=== PATIENT | female | born 1975 | race Caucasian/White ===

== ENCOUNTER 2017-06-11 12:23 | Emergency (ER) | payer SELFPAY ==
[2017-06-11 14:25] LABS: Absolute Lymphocytes (CBC) 1.7 K/uL (0.7-4.9); Absolute Monocytes 0.8 K/uL (0.1-1.3); Absolute Neutrophil 11.3 K/uL (1.8-8.0); Basophils % 0.3 % (0-1.3); Eosinophils % 0.6 % (0-4.4); Hematocrit 31.4 % (36.0-45.0); Lymphocytes % 12.2 % (15.3-44.8); MCH 27.9 pg (27.0-35.0); MCV 82.3 fL (80-100); MPV 7.1 fL (7.6-11.3); Monocytes % 5.7 % (3.3-12.3); RBC Red Blood Cell Count 3.81 M/uL (3.86-4.86)
[2017-06-11 14:33] LABS: Potassium 3.9 mEq/L (3.6-5.0)
[2017-06-11 14:36] LABS: Albumin 4.4 g/dL (3.2-5.5); Bilirubin Total 0.5 mg/dL (0.3-1.2); Protein, Total 7.5 g/dL (6.0-8.3)
[2017-06-11] MEDS ORDERED: DEXAMETHASONE 10 MG/ML VIAL ONE ×2 (14:40→14:46)
[2017-06-11] MEDS ORDERED: ALBUTEROL 2.5 MG/3 ML NEB SOL ONE (14:40)
[2017-06-11] MEDS ORDERED: KETOROLAC 30 MG/ML INJ ONE (14:40)
[2017-06-11] MEDS ORDERED: IPRATROPIUM BROM 0.5MG/2.5ML ONE (14:40)
--- NOTE | 2017-06-11 14:56 | RAD REPORT ---
EXAM DESCRIPTION: RAD - Chest Single View - 06/11/2017 2:09 pm CLINICAL HISTORY: Cough, patient detailed history of left anterior rib pain following injury COMPARISON: April 2017 TECHNIQUE: AP portable chest image was obtained 1404 hours . FINDINGS: Portable exam performed and under penetrated technique. There is ill-defined opacification in the lower left lung field. Inspiratory effort is somewhat shallow and this causes overall accentu ation of the lung markings. Early infiltrate or pulmonary contusion would be possible if there is foc al trauma. Heart and vasculature are normal. No measurable pleural effusion and no pneumothorax. No a cute bone finding. Rib detail is limited on portable underpenetrated examination. No acute aortic fin dings suspected. IMPRESSION: Lower left lung field infiltrate versus atelectasis. Rib detail is limited. Concerns for a rib fracture can be addressed with dedicated imaging.
--- NOTE | 2017-06-11 15:05 | ER ---
Nurse's Notes [facility] Name: Geetha Khan Age: 42 yrs Sex: Female : 1975 Arrival Date: 06/11/2017 Time: 12:27 Bed 11 Private MD: Diagnosis: PNEUMONIA. LEFT RIB PAIN. Presentation: 06/11 12:51 Presenting complaint: Patient states: "Last week I pulled a muscle in my ribs. It hurts lk1 when I breath and cough. It keeps popping and my left arm goes numb.". Transition of care: patient was not received from another setting of care. Onset of symptoms was June 04, 2017. Care prior to arrival: None. 12:51 Method Of Arrival: Ambulatory lk1 12:51 Acuity: CORRINA 4 lk1 Triage Assessment: 12:52 General: Appears in no apparent distress. Behavior is calm, cooperative, appropriate lk1 for age. Pain: Complains of pain in left lateral anterior chest and left arm Pain currently is 10 out of 10 on a pain scale. Respiratory: Airway is patent Respiratory effort is even, unlabored, Respiratory pattern is regular, symmetrical. 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 - Social history:: Smoking status: Patient uses tobacco products, smokes one-half pack cigarettes per day. Screenin:46 Abuse screen: Denies threats or abuse. Denies injuries from another. Nutritional aj1 screening: No deficits noted. Tuberculosis screening: No symptoms or risk factors identified. 15:22 Fall Risk None identified. iw Assessment: 13:46 General: Appears in no apparent distress. uncomfortable, Behavior is calm, cooperative, aj1 appropriate for age. Pain: Complains of pain in left lateral anterior chest Pain does not radiate. Pain currently is 10 out of 10 on a pain scale. Quality of pain is described as sharp, stabbing, Alleviated by rest, Aggravated by movement, coughing, and deep breathing. Neuro: Level of Consciousness is awake, alert, obeys commands, Oriented to person, place, time, situation, Speech is normal, Facial symmetry appears normal. Cardiovascular: Patient's skin is warm and dry. Respiratory: Reports shortness of breath cough that is productive, persistent Airway is patent Respiratory effort is even, unlabored, Respiratory pattern is regular, symmetrical, Breath sounds are clear bilaterally. GI: No signs and/or symptoms were reported involving the gastrointestinal system. : No signs and/or symptoms were reported regarding the genitourinary system. EENT: Reports nasal congestion nasal discharge. Derm: No signs and/or symptoms reported regarding the dermatologic system. Skin is pink, warm \\T\\ dry. normal. Musculoskeletal: No signs and/or symptoms reported regarding the musculoskeletal system. Circulation, motion, and sensation intact. 15:21 Reassessment: Patient appears in no apparent distress at this time. Patient and/or iw family updated on plan of care and expected duration. Pain level reassessed. Patient is alert, oriented x 3, equal unlabored respirations, skin warm/dry/pink. Vital Signs: 12:53 BP 204 / 131; Pulse 86; Resp 16; Temp 97.5(TE); Pulse Ox 100% on R/A; Weight 70.31 kg lk1 (R); Height 5 ft. 2 in. (157.48 cm) (R); Pain 10/10; 13:46 BP 184 / 103; Pulse 87; Resp 18; Pulse Ox 100% on R/A; aj1 15:21 BP 174 / 98; Pulse 86; Resp 18 S; Pulse Ox 100% on R/A; Pain 6/10; iw 12:53 Body Mass Index 28.35 (70.31 kg, 157.48 cm) lk1 ED Course: 12:27 Patient arrived in ED. mr 12:52 Triage completed. lk1 12:55 Arm band placed on right wrist. lk1 12:56 Tommie Gomez MD is Attending Physician. ps1 13:38 Sushma Nielson, RN is Primary Nurse. aj1 13:46 Patient has correct armband on for positive identification. Bed in low position. aj1 13:46 No provider procedures requiring assistance completed. aj1 14:01 Radiology exam delayed due to pt wasn't in gown upon arrival for cxr, then pt needed to sw use restroom. waiting for pt to come out of restroom dressed appropriately. 14:07 X-ray completed. Portable x-ray completed in exam room. Patient tolerated procedure sw well. 14:09 CXR XRAY In Process Unspecified. EDMS 15:21 Patient did not have IV access during this emergency room visit. iw Administered Medications: 14:30 Drug: Decadron - Dexamethasone 10 mg {Note: Given PO per Dr gandhi orders.} Route: aj1 IVP; Site: Other; 15:22 Follow up: Response: No adverse reaction iw 14:30 Drug: TORadol 30 mg Route: IM; Site: left deltoid; aj1 15:22 Follow up: Response: No adverse reaction iw 14:31 Drug: DuoNeb (3:1) (2.5 mg - 0.5 mg) 3 ml Route: Nebulizer; aj1 15:22 Follow up: Response: No adverse reaction iw Outcome: 15:04 Discharge ordered by . ps1 15:21 Discharged to home ambulatory. iw 15:21 Condition: good 15:21 Discharge instructions given to patient, Instructed on discharge instructions, follow up and referral plans. medication usage, Demonstrated understanding of instructions, follow-up care, medications, Prescriptions given X 3. 15:26 Patient left the ED. iw Signatures: Dispatcher [employer] EDMS Sushma Nielson, YANETH RN aj1 Juju Marina Irene, RN RN iw Warren, Shannon sw Kluge, Leah, YANETH RN lk1 Tommie Gomez MD MD ps1
--- NOTE | 2017-06-11 15:05 | EDPHYS ---
Physician Documentation [facility] Name: Geetha Khan Age: 42 yrs Sex: Female : 1975 Arrival Date: 06/11/2017 Time: 12:27 Bed 11 Private MD: ED Physician Tommie Gomez HPI: 06/11 13:41 This 42 yrs old Female presents to ER via Ambulatory with complaints of Arm ps1 Pain. 13:41 The patient or guardian complains of cough and rib pain and referred arm pain. The ps1 complaints affect the anterior aspect of left shoulder. Context: The problem was sustained at home. Onset: The symptoms/episode began/occurred 4 day(s) ago. Associated signs and symptoms: Pertinent positives: cough, shortness of breath. Severity of symptoms: At their worst the symptoms were moderate. 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 States that she developed a cough that has become more productive and causing her left side to hurt and now having referred pain. She states that she bent over to pick something up from her chair and felt a pop and now she has increased pain and RROM. . 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 - Social history:: Smoking status: Patient uses tobacco products, smokes one-half pack cigarettes per day. ROS: 13:41 Constitutional: Negative for fever, chills, and weight loss, Eyes: Negative for injury, ps1 pain, redness, and discharge, ENT: Negative for injury, pain, and discharge, Neck: Negative for injury, pain, and swelling, Cardiovascular: Negative for chest pain, palpitations, and edema, Abdomen/GI: Negative for abdominal pain, nausea, vomiting, diarrhea, and constipation, Back: Negative for injury and pain, Skin: Negative for injury, rash, and discoloration, Neuro: Negative for headache, weakness, numbness, tingling, and seizure. 13:41 Respiratory: Positive for cough, shortness of breath. Exam: 13:41 Constitutional: This is a well developed, well nourished patient who is awake, alert, ps1 and in no acute distress. Head/Face: Normocephalic, atraumatic. ENT: Nares patent. No nasal discharge, no septal abnormalities noted. Tympanic membranes are normal and external auditory canals are clear. Oropharynx with no redness, swelling, or masses, exudates, or evidence of obstruction, uvula midline. Mucous membranes moist. Neck: Trachea midline, no thyromegaly or masses palpated, and no cervical lymphadenopathy. Supple, full range of motion without nuchal rigidity, or vertebral point tenderness. No Meningismus. 13:41 Chest/axilla: Normal chest wall appearance and motion. Nontender with no deformity. No lesions are appreciated. Cardiovascular: Regular rate and rhythm. No gallops, murmurs, or rubs. Normal PMI, no JVD. No pulse deficits. 13:41 Neuro: Awake and alert, GCS 15, oriented to person, place, time, and situation. Cranial nerves II-XII grossly intact. Sensory grossly intact. 13:41 Chest/axilla: Palpation: tenderness, that is mild, of the left lateral posterior chest. 13:41 Respiratory: the patient does not display signs of respiratory distress, Respirations: normal, Breath sounds: rhonchi. Vital Signs: 12:53 BP 204 / 131; Pulse 86; Resp 16; Temp 97.5(TE); Pulse Ox 100% on R/A; Weight 70.31 kg lk1 (R); Height 5 ft. 2 in. (157.48 cm) (R); Pain 10/10; 13:46 BP 184 / 103; Pulse 87; Resp 18; Pulse Ox 100% on R/A; aj1 15:21 BP 174 / 98; Pulse 86; Resp 18 S; Pulse Ox 100% on R/A; Pain 6/10; iw 12:53 Body Mass Index 28.35 (70.31 kg, 157.48 cm) lk1 MDM: 13:41 Data reviewed: vital signs, nurses notes. ps1 14:15 Patient medically screened. ps1 15:00 Data reviewed: lab test result(s), radiologic studies, plain films. Test ps1 interpretation: by ED physician or midlevel provider: plain radiologic studies, c/w possible PNA. ED course: Duoneb given as well as steroids and pain addressed. Smoking cessation conducted with patient. Possible early developing pneumonia with history of COPD with leukocytosis. Will send home with antibiotics and follow up with PCP for reevaluation. . 06/11 13:41 Order name: CBC with Diff; Complete Time: 14:29 ps1 06/11 13:41 Order name: CMP; Complete Time: 14:43 ps1 06/11 13:41 Order name: CXR XRAY; Complete Time: 14:59 ps1 Administered Medications: 14:30 Drug: Decadron - Dexamethasone 10 mg {Note: Given PO per Dr gandhi orders.} Route: aj1 IVP; Site: Other; 15:22 Follow up: Response: No adverse reaction iw 14:30 Drug: TORadol 30 mg Route: IM; Site: left deltoid; aj1 15:22 Follow up: Response: No adverse reaction iw 14:31 Drug: DuoNeb (3:1) (2.5 mg - 0.5 mg) 3 ml Route: Nebulizer; aj1 15:22 Follow up: Response: No adverse reaction iw Disposition: 06/11/17 15:04 Discharged to Home. Impression: PNEUMONIA. LEFT RIB PAIN. . - Condition is Stable. - Discharge Instructions: Pneumonia, Adult. - Prescriptions for Levaquin 750 mg Oral Tablet - take 1 tablet by ORAL route once daily for 7 days; 7 tablet. Medrol (Zack) 4 mg Oral Tablets, Dose Pack - take 1 tablet by ORAL route as directed - follow package instructions; 1 packet. Albuterol Sulfate 90 mcg/actuation - inhale 1-2 puff by INHALATION route every 4-6 hours; 1 Inhaler. - Medication Reconciliation Form, Thank You Letter, Antibiotic Education, Prescription Opioid Use form. - Follow up: Private Physician; When: As needed; Reason: Recheck today's complaints, Continuance of care, Re-evaluation by your physician. Follow up: Emergency Department; When: As needed; Reason: Fever > 102 F, Trouble breathing, Worsening of condition. - Problem is an acute exacerbation. - Symptoms have improved. Signatures: Dispatcher [employer] Sushma Goodman RN RN aj1 Iqra Issa RN RN iw Radha Mann RN RN lk1 Tommie Gomez MD MD ps1
[2017-06-11 15:34] VITALS: TEMP 97.5; O2SAT 100
[2017-06-11 15:36] VITALS: BP 174/98
== END 2017-06-11 15:26 | disposition home or self-care (01) ==
LOC: ER 12:23
DX: I10 Essential (primary) hypertension; R07.81 Pleurodynia; F17.210 Nicotine dependence, cigarettes, uncomplicated; J18.9 Pneumonia, unspecified organism; J44.9 Chronic obstructive pulmonary disease, unspecified
CPT/HCPCS: 36415; 71045; 80053; 85025; 94640; 96372; 96374; 99284; J1100

== ENCOUNTER 2017-11-23 22:34 | Emergency (ER) | payer SELFPAY ==
[2017-11-23] MEDS ORDERED: levETIRAcetam 500 MG TAB ONE (23:26)
[2017-11-23] MEDS ORDERED: LISINOPRIL 10 MG TAB ONE (23:26)
--- NOTE | 2017-11-23 23:26 | ER ---
Nurse's Notes [facility] Name: Geetha Khan Age: 42 yrs Sex: Female : 1975 Arrival Date: 11/23/2017 Time: 22:34 Bed 15 Private MD: Diagnosis: uncontrolled hypertension Presentation: 11/23 22:51 Presenting complaint: Patient states: Complains of a headache for three days. Patient ao describes pain as sharp and throbbing at 10 in a scale 0/10. Patient negative for nausea or vomiting. Patient reports running out her seizure medication. Transition of care: patient was not received from another setting of care. Onset of symptoms was November 20, 2017 at 09:00. Risk Assessment: Do you want to hurt yourself or someone else? Patient reports no desire to harm self or others. Initial Sepsis Screen: Does the patient meet any 2 criteria? No. Patient's initial sepsis screen is negative. Does the patient have a suspected source of infection? No. Patient's initial sepsis screen is negative. Care prior to arrival: None. 22:51 Method Of Arrival: Ambulatory ao 22:51 Acuity: CORRINA 3 ao Triage Assessment: 21:55 Pain: Also complains of sleeplessness. jb4 21:55 Headache History: The patient has had previous headaches and this one is more severe jb4 than previous episodes. General: Appears in no apparent distress. comfortable, Behavior is calm, cooperative, appropriate for age. 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 - Social history:: Smoking status: Patient uses tobacco products, smokes one-half pack cigarettes per day, Patient/guardian denies using alcohol, street drugs. - Ebola Screening: : Patient negative for fever greater than or equal to 101.5 degrees Fahrenheit, and additional compatible Ebola Virus Disease symptoms Patient denies exposure to infectious person Patient denies travel to an Ebola-affected area in the 21 days before illness onset. Screenin:57 Abuse screen: Denies threats or abuse. Denies injuries from another. Nutritional ao screening: No deficits noted. Tuberculosis screening: No symptoms or risk factors identified. Fall Risk None identified. Assessment: 22:50 General: Appears in no apparent distress. uncomfortable, Behavior is calm, cooperative, jb4 appropriate for age. Pain: Complains of pain in Headache. Pain does not radiate. Pain currently is 10 out of 10 on a pain scale. at worst was 10 out of 10 on a pain scale. Quality of pain is described as sharp, throbbing, Pain began 2-3 days ago. Is continuous. Neuro: Level of Consciousness is awake, alert, obeys commands, Oriented to person, place, time, situation. Cardiovascular: Patient's skin is warm and dry. Respiratory: Airway is patent Respiratory effort is even, unlabored, Respiratory pattern is regular, symmetrical. GI: No signs and/or symptoms were reported involving the gastrointestinal system. : No signs and/or symptoms were reported regarding the genitourinary system. EENT: No signs and/or symptoms were reported regarding the EENT system. Derm: Skin is intact, Skin is pink, warm \T\ dry. Musculoskeletal: Circulation, motion, and sensation intact. 22:55 Reassessment: Provider notified of B/P. See BANNER for orders. jb4 23:37 Reassessment: Patient appears in no apparent distress at this time. Patient and/or jb4 family updated on plan of care and expected duration. Pain level reassessed. Patient is alert, oriented x 3, equal unlabored respirations, skin warm/dry/pink. Pt reports feeling better. B/p decrease to 182/114 after medication administration. Vital Signs: 22:54 BP 209 / 136; Pulse 83; Resp 20; Temp 98.3; Pulse Ox 100% ; Weight 63.5 kg; Height 5 ao ft. 2 in. (157.48 cm); Pain 10/10; 23:37 BP 182 / 114; Pulse 71; Resp 18; Pulse Ox 100% on R/A; jb4 22:54 Body Mass Index 25.61 (63.50 kg, 157.48 cm) ao ED Course: 22:34 Patient arrived in ED. es 22:50 Patient has correct armband on for positive identification. Bed in low position. Call jb4 light in reach. Side rails up X 1. Pulse ox on. NIBP on. 22:54 Triage completed. ao 22:57 Tommie Gomez MD is Attending Physician. ps1 22:57 Arm band placed on right wrist. Patient placed in an exam room, on a stretcher, on ao pulse oximetry, Patient notified of wait time. 22:58 Jaziel Strom, RN is Primary Nurse. jb4 23:37 No provider procedures requiring assistance completed. Patient did not have IV access jb4 during this emergency room visit. Administered Medications: 23:27 Drug: Lisinopril 10 mg Route: PO; jb4 23:35 Follow up: Response: No adverse reaction jb4 23:27 Drug: Keppra 1000 mg Route: PO; jb4 23:35 Follow up: Response: No adverse reaction jb4 Outcome: 23:25 Discharge ordered by MD. ps1 23:37 Discharged to home ambulatory. jb4 23:37 Condition: stable 23:37 Discharge instructions given to patient, family, Instructed on discharge instructions, follow up and referral plans. medication usage, Demonstrated understanding of instructions, follow-up care, medications, Prescriptions given X 2. 23:39 Patient left the ED. jb4 Signatures: Lisseth Turner Alex, RN RN ao Jaziel Storm RN RN jb4 Tommie Gomez MD MD ps1 Corrections: (The following items were deleted from the chart) 22:54 22:51 Presenting complaint: Patient states: Complains of a headache for three days. ao Patient describes pain as sharp and throbbing at 10 in a scale 0/10. Patient negative for nausea or vomiting. ao
--- NOTE | 2017-11-23 23:26 | EDPHYS ---
Physician Documentation [facility] Name: Geetha Khan Age: 42 yrs Sex: Female : 1975 Arrival Date: 11/23/2017 Time: 22:34 Bed 15 Private MD: ED Physician Tommie Gomez HPI: 11/23 23:20 This 42 yrs old Female presents to ER via Ambulatory with complaints of ps1 Headache. 23:20 patient has a history of elevated blood pressure and seizure. Does not take medication ps1 because the doctor never reportedly called her back and she lapsed on her medication for the last 3 months. She has had a headache for the last 3 days and her last seizure was 6 months ago. She reportedly never on blood pressure and was on carbamazepine for seizures which she doesn't take. No CP. tightness, pressure. . 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 - Social history:: Smoking status: Patient uses tobacco products, smokes one-half pack cigarettes per day, Patient/guardian denies using alcohol, street drugs. - Ebola Screening: : Patient negative for fever greater than or equal to 101.5 degrees Fahrenheit, and additional compatible Ebola Virus Disease symptoms Patient denies exposure to infectious person Patient denies travel to an Ebola-affected area in the 21 days before illness onset. ROS: 23:20 Constitutional: Negative for fever, chills, and weight loss, Eyes: Negative for injury, ps1 pain, redness, and discharge, Cardiovascular: Negative for chest pain, palpitations, and edema, Respiratory: Negative for shortness of breath, cough, wheezing, and pleuritic chest pain, Abdomen/GI: Negative for abdominal pain, nausea, vomiting, diarrhea, and constipation, MS/Extremity: Negative for injury and deformity, Skin: Negative for injury, rash, and discoloration. 23:20 Neuro: Positive for headache. Exam: 23:20 Constitutional: This is a well developed, well nourished patient who is awake, alert, ps1 and in no acute distress. Head/Face: Normocephalic, atraumatic. Eyes: Pupils equal round and reactive to light, extra-ocular motions intact. Lids and lashes normal. Conjunctiva and sclera are non-icteric and not injected. Chest/axilla: Normal chest wall appearance and motion. Nontender with no deformity. No lesions are appreciated. Cardiovascular: Regular rate and rhythm. No gallops, murmurs, or rubs. Normal PMI, no JVD. No pulse deficits. Respiratory: Lungs have equal breath sounds bilaterally, clear to auscultation and percussion. No rales, rhonchi or wheezes noted. No increased work of breathing, no retractions or nasal flaring. Abdomen/GI: Soft, non-tender, with normal bowel sounds. No distension or tympany. No guarding or rebound. No evidence of tenderness throughout. MS/ Extremity: Pulses equal, no cyanosis. Neurovascular intact. Full, normal range of motion. Neuro: Awake and alert, GCS 15, oriented to person, place, time, and situation. Cranial nerves II-XII grossly intact. Sensory grossly intact. Vital Signs: 22:54 BP 209 / 136; Pulse 83; Resp 20; Temp 98.3; Pulse Ox 100% ; Weight 63.5 kg; Height 5 ao ft. 2 in. (157.48 cm); Pain 10/10; 23:37 BP 182 / 114; Pulse 71; Resp 18; Pulse Ox 100% on R/A; jb4 22:54 Body Mass Index 25.61 (63.50 kg, 157.48 cm) ao MDM: 23:20 Data reviewed: vital signs, nurses notes, and as a result, I will discharge patient. ps1 Counseling: I had a detailed discussion with the patient and/or guardian regarding: the historical points, exam findings, and any diagnostic results supporting the discharge/admit diagnosis, the presence of at least one elevated blood pressure reading (>120/80) during this emergency department visit, patient has asymptomatic hypertension which is uncontrolled for long period of time. Will start on lisinopril 10mg and write prescription for same anti epileptic. Stable for discharge. . 23:25 Patient medically screened. ps1 Administered Medications: 23:27 Drug: Lisinopril 10 mg Route: PO; jb4 23:35 Follow up: Response: No adverse reaction jb4 23:27 Drug: Keppra 1000 mg Route: PO; jb4 23:35 Follow up: Response: No adverse reaction jb4 Disposition: 11/23/17 23:25 Discharged to Home. Impression: uncontrolled hypertension. - Condition is Stable. - Discharge Instructions: Hypertension. - Prescriptions for Carbamazepine 200 mg Oral Tablet - take 1 tablet by ORAL route every 12 hours; 20 tablet. Lisinopril 10 mg Oral Tablet - take 1 tablet by ORAL route once daily; 30 tablet. - Medication Reconciliation Form, Thank You Letter, Antibiotic Education, Prescription Opioid Use form. - Follow up: Private Physician; When: As needed; Reason: Further diagnostic work-up, Recheck today's complaints, Continuance of care, Re-evaluation by your physician. Follow up: Emergency Department; When: As needed; Reason: Worsening of condition. - Problem is chronic. - Symptoms are unchanged. Signatures: Félix Maciel RN RN ao Jaziel Storm RN RN jb4 Tommie Gomez MD MD ps1 Corrections: (The following items were deleted from the chart) 23:39 23:25 11/23/2017 23:25 Discharged to Home. Impression: uncontrolled hypertension. jb4 Condition is Stable. Forms are Medication Reconciliation Form, Thank You Letter, Antibiotic Education, Prescription Opioid Use. Follow up: Private Physician; When: As needed; Reason: Further diagnostic work-up, Recheck today's complaints, Continuance of care, Re-evaluation by your physician. Follow up: Emergency Department; When: As needed; Reason: Worsening of condition. Problem is chronic. Symptoms are unchanged. ps1
[2017-11-23 23:53] VITALS: TEMP 98.3; O2SAT 100
[2017-11-23 23:54] VITALS: BP 182/114
== END 2017-11-23 23:39 | disposition home or self-care (01) ==
LOC: ER 22:34
DX: R51 Headache (principal); I10 Essential (primary) hypertension; J44.9 Chronic obstructive pulmonary disease, unspecified; R56.9 Unspecified convulsions; F17.210 Nicotine dependence, cigarettes, uncomplicated
CPT/HCPCS: 99283

== ENCOUNTER 2018-05-18 17:54 | Emergency (ER) | payer SELFPAY ==
[2018-05-18] MEDS ORDERED: NA CHLORIDE 0.9% 1,000 ML ONE (18:31)
[2018-05-18] MEDS ORDERED: ASPIRIN 81 MG CHEWABLE TABLET ONE (18:31)
[2018-05-18 18:35] LABS: Absolute Lymphocytes (CBC) 1.4 K/uL (0.7-4.9); Absolute Monocytes 0.4 K/uL (0.1-1.3); Absolute Neutrophil 5.2 K/uL (1.8-8.0); Basophils % 0.9 % (0-1.3); Eosinophils % 1.1 % (0-4.4); Hematocrit 31.4 % (36.0-45.0); MPV 7.6 fL (7.6-11.3); Monocytes % 5.9 % (3.3-12.3); RBC Red Blood Cell Count 3.84 M/uL (3.86-4.86)
--- NOTE | 2018-05-18 18:40 | RAD REPORT ---
EXAM DESCRIPTION: RAD - Chest Single View - 05/18/2018 6:18 pm CLINICAL HISTORY: Difficulty breathing, shortness of breath COMPARISON: May 2017 TECHNIQUE: AP portable chest image was obtained 1816 hours . FINDINGS: No focal consolidation, mass or acute failure finding. Lung markings are prominent but not substantially different. Minimal edema or infiltrate could be masked by the baseline pattern. Heart and vasculature are normal. No measurable pleural effusion and no pneumothorax. No acute bony abnorma lity seen. No acute aortic findings suspected. IMPRESSION: No focal mass or consolidation. Prominent interstitial markings are present as a baseline. This potentially masks early edema or infi ltrate.
[2018-05-18 18:41] LABS: Protime INR 1.05
[2018-05-18 18:50] LABS: Albumin 3.8 g/dL (3.4-5.0); Bilirubin Direct 0.1 mg/dL (0-0.2); Bilirubin Total 0.5 mg/dL (0.2-1.0); Magnesium 1.9 mg/dL (1.8-2.4); Potassium 3.8 mmol/L (3.5-5.1); Protein, Total 7.3 g/dL (6.4-8.2); Troponin (Emerg Dept Use Only) 0.02 ng/mL (0.0-0.045)
[2018-05-18] MEDS ORDERED: KETOROLAC 30 MG/ML INJ ONE (19:26)
[2018-05-18] MEDS ORDERED: FUROSEMIDE 20 MG/ 2ML VIAL ONE (21:07)
[2018-05-18] MEDS ORDERED: predniSONE 20 MG TAB ONE (21:40)
--- NOTE | 2018-05-18 21:56 | ER ---
Nurse's Notes [facility] Name: Geetha Khan Age: 43 yrs Sex: Female : 1975 Arrival Date: 05/18/2018 Time: 17:57 Bed 3 Private MD: Diagnosis: Unspecified asthma with (acute) exacerbation;Other chest pain;Hypertensive heart disease Presentation: 05/18 17:57 Presenting complaint: EMS states: Called due to difficulty breathing, we gave an A\T\A jl7 treatment and she started c/o non-radiating substernal chest pain. Transition of care: patient was not received from another setting of care. Onset of symptoms was May 18, 2018. Risk Assessment: Do you want to hurt yourself or someone else? Patient reports no desire to harm self or others. Initial Sepsis Screen: Does the patient meet any 2 criteria? No. Patient's initial sepsis screen is negative. Does the patient have a suspected source of infection? No. Patient's initial sepsis screen is negative. Care prior to arrival: Medication(s) given: Albuterol Neb x 1, Atrovent Neb x 1. 17:57 Method Of Arrival: EMS: [facility] 7 17:57 Acuity: CORRINA 3 jl7 Triage Assessment: 18:00 General: Appears in no apparent distress. uncomfortable, Behavior is calm, cooperative. jl7 Pain: Complains of pain in mid-sternal area Pain currently is 8 out of 10 on a pain scale. Quality of pain is described as sharp, Pain began 30 min ago. Neuro: Level of Consciousness is awake, alert, obeys commands, Oriented to person, place, time, situation. Cardiovascular: Patient's skin is warm and dry. Chest pain is described as mild, quality is sharp, is located in substernal area. Respiratory: Airway is patent Respiratory effort is even, unlabored, Respiratory pattern is regular, symmetrical. Derm: Skin is pink, warm \T\ dry. 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 - Social history:: Smoking status: Patient uses tobacco products, smokes one-half pack cigarettes per day. - Ebola Screening: : No symptoms or risks identified at this time. Screenin:14 Abuse screen: Denies threats or abuse. Denies injuries from another. Nutritional jl7 screening: No deficits noted. Tuberculosis screening: No symptoms or risk factors identified. Fall Risk IV access (20 points). Total Quintero Fall Scale indicates No Risk (0-24 pts). Assessment: 18:14 Pain: Complains of pain in mid-sternal area Pain does not radiate. Pain currently is 8 jl7 out of 10 on a pain scale. Quality of pain is described as sharp, Pain began 30 min ago. Is continuous. Cardiovascular: Heart tones S1 S2 present Patient's skin is warm and dry. Respiratory: Airway is patent Respiratory effort is even, unlabored, Respiratory pattern is regular, symmetrical, Breath sounds are clear bilaterally. 18:45 Reassessment: Pt refused urine sample at this time. jl7 19:10 Reassessment: Patient appears in no apparent distress at this time. Patient and/or aa1 family updated on plan of care and expected duration. Pain level reassessed. Patient is alert, oriented x 3, equal unlabored respirations, skin warm/dry/pink. Pt reports she is still having int CP; PA notified and will medicate per orders. 22:25 Reassessment: Patient and/or family updated on plan of care and expected duration. Pain tl1 level reassessed. Patient is alert, oriented x 3, equal unlabored respirations, skin warm/dry/pink. Patient states feeling better. Patient states symptoms have improved. Vital Signs: 18:00 BP 189 / 110; Pulse 84; Resp 17 S; Pulse Ox 100% on R/A; Weight 72.12 kg (R); Pain 8/10;jl7 19:10 BP 163 / 105; Pulse 76; Resp 18; Temp 97.5(O); Pulse Ox 99% on R/A; Pain 6/10; aa1 20:30 BP 160 / 109; Pulse 76; Resp 16; Pulse Ox 99% on R/A; aa1 21:35 BP 171 / 98; Pulse 79; Resp 17; Pulse Ox 100% on R/A; tl1 21:51 BP 173 / 104; Pulse 71; Resp 17; Pulse Ox 100% on R/A; tl1 ED Course: 17:57 Patient arrived in ED. jl7 18:00 Triage completed. jl7 18:00 Arm band placed on right wrist. jl7 18:03 Michael Nguyen PA is PHCP. cp 18:03 Kb Morillo MD is Attending Physician. cp 18:10 Kailey Ching RN is Primary Nurse. jl7 18:14 Patient has correct armband on for positive identification. Placed in gown. Bed in low jl7 position. Call light in reach. Side rails up X2. hall monitor on. Pulse ox on. NIBP on. Warm blanket given. 18:14 Initial lab(s) drawn, by ED staff, sent to lab. Inserted saline lock: 22 gauge in left jl7 antecubital area, using aseptic technique. Blood collected. Patient maintains SpO2 saturation greater than 95% on room air. 18:16 X-ray completed. Portable x-ray completed in exam room. Patient tolerated procedure la2 well. 18:17 XRAY Chest (1 view) In Process Unspecified. EDMS 19:09 Report given to YANETH Orr. jl7 21:54 EKG done, by ED staff, reviewed by Michael LEBRON. ag4 22:26 No provider procedures requiring assistance completed. IV discontinued, intact, tl1 bleeding controlled, No redness/swelling at site. Pressure dressing applied. Administered Medications: 18:26 Drug: Aspirin Chewable Tablet 324 mg Route: PO; jl7 19:12 Follow up: Response: No adverse reaction jl7 18:27 Drug: NS 0.9% 1000 ml Route: IV; Rate: 500 ml/hr; Site: right antecubital; jl7 22:27 Follow up: IV Status: Completed infusion tl1 19:24 Drug: TORadol 30 mg Route: IVP; Site: left antecubital; aa1 22:27 Follow up: Response: No adverse reaction; Marked relief of symptoms; Pain is decreased tl1 21:14 Drug: Lasix 20 mg Route: IVP; Infused Over: 4 mins; Site: left antecubital; tl1 22:27 Follow up: Response: No adverse reaction; Marked relief of symptoms tl1 21:31 Drug: predniSONE 60 mg Route: PO; tl1 22:27 Follow up: Response: No adverse reaction; No change in condition tl1 Outcome: 21:55 Discharge ordered by . cp 22:26 Discharged to home ambulatory, with family. tl1 22:26 Condition: stable 22:26 Discharge instructions given to patient, Instructed on discharge instructions, follow up and referral plans. medication usage, Demonstrated understanding of instructions, follow-up care, medications, Prescriptions given X 3. 22:28 Patient left the ED. tl1 Signatures: Dispatcher [employer] EDMS Dominga Mai RN RN aa1 Elizabeth Larson RN RN tl1 Michael Nguyen PA PA cp Leal, Jahala, RN RN jl7 Kathie Cummings Adan ag4 Corrections: (The following items were deleted from the chart) 19:24 19:10 BP 163 / 105; Pulse 76bpm; Resp 18bpm; Pulse Ox 99% RA; Pain 6/10; aa1 aa1
--- NOTE | 2018-05-18 21:56 | EDPHYS ---
Physician Documentation [facility] Name: Geetha Khan Age: 43 yrs Sex: Female : 1975 Arrival Date: 05/18/2018 Time: 17:57 Bed 3 Private MD: ED Physician Kb Morillo HPI: 05/18 18:15 This 43 yrs old Female presents to ER via EMS with complaints of Chest Pain > cp 31 y/o. 18:15 The patient or guardian reports chest pain that is located primarily in the substernal cp area. 18:15 Onset: suddenly, just prior to arrival. cp 18:15 The chest pain is described as sharp. cp 18:15 Patient reports she called EMS for shortness of breath that started today and reports cp she started having chest pain after being given neb treatment. 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 - Social history:: Smoking status: Patient uses tobacco products, smokes one-half pack cigarettes per day. - Ebola Screening: : No symptoms or risks identified at this time. ROS: 18:20 Constitutional: Negative for body aches, chills, fever, poor PO intake. cp 18:20 Eyes: Negative for injury, pain, redness, and discharge. cp 18:20 ENT: Negative for drainage from ear(s), ear pain, sore throat, difficulty swallowing, difficulty handling secretions. 18:20 Cardiovascular: Positive for chest pain, Negative for edema, palpitations. 18:20 Respiratory: Positive for shortness of breath, Negative for cough. 18:20 Abdomen/GI: Negative for abdominal pain, nausea, vomiting, and diarrhea, black/tarry stool, rectal bleeding. 18:20 Back: Negative for pain at rest, pain with movement, radiated pain. 18:20 Skin: Negative for cellulitis, rash. 18:20 Neuro: Negative for altered mental status, headache, weakness. 18:20 All other systems are negative. Exam: 18:10 ECG was reviewed by the Attending Physician. cp 18:22 Constitutional: The patient appears in no acute distress, alert, awake, cp non-diaphoretic, non-toxic, well developed, well nourished. 18:22 Head/Face: Normocephalic, atraumatic. cp 18:22 Eyes: Periorbital structures: appear normal, Conjunctiva: normal, no exudate, no injection, Lids and lashes: appear normal, bilaterally. 18:22 ENT: External ear(s): are unremarkable, Ear canal(s): are normal, clear, TM's: bulging, is not appreciated, bilaterally, dullness, bilaterally, erythema, is not appreciated, bilaterally, Nose: is normal, Mouth: is normal, Posterior pharynx: is normal, airway is patent, no erythema, no exudate, Voice: is normal. 18:22 Neck: ROM/movement: is normal, is supple, without pain, no range of motions limitations, no meningismus, no nuchal rigidity. 18:22 Chest/axilla: Inspection: normal, Palpation: is normal, no crepitus, no tenderness. 18:22 Cardiovascular: Rate: normal, Rhythm: regular. 18:22 Respiratory: the patient does not display signs of respiratory distress, Respirations: labored breathing, that is mild, accessory muscle usage, is absent, intercostal retractions, are absent, shallow respirations, are not present, Breath sounds: decreased breath sounds, that are mild, are located in both bases, stridor, is not appreciated, wheezing: is not appreciated. 18:22 Abdomen/GI: Inspection: abdomen appears normal, Bowel sounds: active, all quadrants, Palpation: abdomen is soft and non-tender, in all quadrants, rebound tenderness, is not appreciated, involuntary guarding, is not appreciated. 18:22 Back: pain, is absent, ROM is normal. 18:22 Skin: cellulitis, is not appreciated, no rash present. 18:22 Neuro: Orientation: to person, place \T\ time. Mentation: is normal, Cerebellar function: is grossly normal, Motor: moves all fours, strength is normal, Sensation: is normal. 21:45 ECG was reviewed by the Attending Physician. cp Vital Signs: 18:00 BP 189 / 110; Pulse 84; Resp 17 S; Pulse Ox 100% on R/A; Weight 72.12 kg (R); Pain 8/10;jl7 19:10 BP 163 / 105; Pulse 76; Resp 18; Temp 97.5(O); Pulse Ox 99% on R/A; Pain 6/10; aa1 20:30 BP 160 / 109; Pulse 76; Resp 16; Pulse Ox 99% on R/A; aa1 21:35 BP 171 / 98; Pulse 79; Resp 17; Pulse Ox 100% on R/A; tl1 21:51 BP 173 / 104; Pulse 71; Resp 17; Pulse Ox 100% on R/A; tl1 MDM: 18:06 Patient medically screened. cp 21:54 The patient was given aspirin in the Emergency Department. cp 21:54 Data reviewed: vital signs, nurses notes, lab test result(s), EKG, radiologic studies, cp plain films. Test interpretation: by ED physician or midlevel provider: ECG, plain radiologic studies. Counseling: I had a detailed discussion with the patient and/or guardian regarding: the historical points, exam findings, and any diagnostic results supporting the discharge/admit diagnosis, lab results, radiology results, the need for outpatient follow up, for definitive care, a family practitioner, to return to the emergency department if symptoms worsen or persist or if there are any questions or concerns that arise at home. Counseling: I had a detailed discussion with the patient and/or guardian regarding: the presence of at least one elevated blood pressure reading (>120/80) during this emergency department visit. Response to treatment: the patient's symptoms have markedly improved after treatment, and as a result, I will discharge patient. Special discussion: Based on the patient's history, exam, and Dx evaluation, there is no indication for emergent intervention or inpatient Tx. It is understood by the patient/guardian that if the Sx's persist or worsen they need to return immediately for re-evaluation. 05/18 18:07 Order name: Basic Metabolic Panel; Complete Time: 19:16 cp 05/18 19:16 Interpretation: Normal except: GLUC 154; GFR 45. cp 05/18 18:07 Order name: CBC with Diff; Complete Time: 19:16 cp 05/18 19:17 Interpretation: Normal except: RBC 3.84; HGB 10.3; HCT 31.4; MCH 26.9; RDW 17.5. cp / 18:07 Order name: LFT's; Complete Time: 19:16 cp 05/18 19:18 Interpretation: Normal except: ALK 162. cp / 18:07 Order name: Magnesium; Complete Time: 19:16 cp 05/18 20:36 Interpretation: MG 1.9; Reviewed. cp 05/18 18:07 Order name: NT PRO-BNP; Complete Time: 19:16 cp 05/18 19:17 Interpretation: Abnormal: NT PRO-BNP 2558. cp 05/18 18:07 Order name: PT-INR; Complete Time: 19:16 cp 05/18 18:07 Order name: Troponin (emerg Dept Use Only); Complete Time: 19:16 cp 05/18 20:36 Interpretation: TROPED 0.02; Reviewed. cp 05/18 18:07 Order name: XRAY Chest (1 view); Complete Time: 19:16 cp 05/18 21:19 Order name: Troponin (emerg Dept Use Only); Complete Time: 21:53 tl1 05/18 21:53 Interpretation: Reviewed. cp 05/18 18:04 Order name: EKG; Complete Time: 18:05 cp 05/18 18:04 Order name: EKG - Nurse/Tech; Complete Time: 18:11 cp 05/18 18:07 Order name: Cardiac monitoring; Complete Time: 18:11 cp 05/18 18:07 Order name: IV Saline Lock; Complete Time: 18:11 cp 05/18 18:07 Order name: Labs collected and sent; Complete Time: 18:11 cp 05/18 18:07 Order name: O2 Per Protocol; Complete Time: 18:11 cp 05/18 18:07 Order name: O2 Sat Monitoring; Complete Time: 18:11 cp 05/18 21:26 Order name: EKG; Complete Time: 21:27 cp 05/18 21:26 Order name: EKG - Nurse/Tech; Complete Time: 21:35 cp EC:10 Rate is 82 beats/min. Rhythm is regular. MS interval is normal. QRS interval is normal. cp T waves are Inverted in leads I, II, aVL, V5, V6. Interpreted by me. Reviewed by me. 21:45 Rate is 69 beats/min. Rhythm is regular. MS interval is normal. QRS interval is normal. cp QT interval is normal. T waves are Inverted in leads I, II, aVL, V5, V6. Clinical impression: Abnormal EKG without significant change. Interpreted by me. Reviewed by me. Administered Medications: 18:26 Drug: Aspirin Chewable Tablet 324 mg Route: PO; jl7 19:12 Follow up: Response: No adverse reaction jl7 18:27 Drug: NS 0.9% 1000 ml Route: IV; Rate: 500 ml/hr; Site: right antecubital; jl7 22:27 Follow up: IV Status: Completed infusion tl1 19:24 Drug: TORadol 30 mg Route: IVP; Site: left antecubital; aa1 22:27 Follow up: Response: No adverse reaction; Marked relief of symptoms; Pain is decreased tl1 21:14 Drug: Lasix 20 mg Route: IVP; Infused Over: 4 mins; Site: left antecubital; tl1 22:27 Follow up: Response: No adverse reaction; Marked relief of symptoms tl1 21:31 Drug: predniSONE 60 mg Route: PO; tl1 22:27 Follow up: Response: No adverse reaction; No change in condition tl1 Disposition: 05/19 12:06 Co-signature as Attending Physician, Kb Morillo MD. Disposition: 05/18/18 21:55 Discharged to Home. Impression: Unspecified asthma with (acute) exacerbation, Other chest pain, Hypertensive heart disease. - Condition is Stable. - Discharge Instructions: Nonspecific Chest Pain, Hypertension, How to Take Your Blood Pressure, [id number], Aspirin and Your Heart. - Prescriptions for Prednisone 20 mg Oral Tablet - take 2 tablet by ORAL route once daily for 5 days; 10 tablet. Albuterol Sulfate 90 mcg/actuation - inhale 1-2 puff by INHALATION route every 4-6 hours; 1 Inhaler. Albuterol Sulfate 2.5 mg /3 mL (0.083 %) Inhalation Solution for Nebulization - inhale 1 unit by NEBULIZATION route every 8 hours As needed; 1 box. - Medication Reconciliation Form, Thank You Letter, Antibiotic Education, Prescription Opioid Use form. - Follow up: Private Physician; When: 1 - 2 days; Reason: Recheck today's complaints. - Problem is new. - Symptoms have improved. Signatures: Dispatcher [employer] Dominga Moncada RN RN aa1 Elizabeth Larson RN RN tl1 Michael Nguyen PA PA cp Kailey Ching, RN RN jl7 Kb Morillo MD MD gs Corrections: (The following items were deleted from the chart) 05/18 19:06 18:07 Urine Dipstick-Ancillary ordered. cp jl7 19:06 18:07 Urine Test ordered. jl7 21:58 21:55 05/18/2018 21:55 Discharged to Home. Impression: Unspecified asthma with (acute) cp exacerbation; Other chest pain. Condition is Stable. Forms are Medication Reconciliation Form, Thank You Letter, Antibiotic Education, Prescription Opioid Use. Follow up: Private Physician; When: 1 - 2 days; Reason: Recheck today's complaints. Problem is new. Symptoms have improved. cp 22:28 21:58 05/18/2018 21:55 Discharged to Home. Impression: Unspecified asthma with (acute) tl1 exacerbation; Other chest pain; Hypertensive heart disease. Condition is Stable. Discharge Instructions: Nonspecific Chest Pain, Aspirin and Your Heart, Hypertension. Prescriptions for Prednisone 20 mg Oral Tablet - take 2 tablet by ORAL route once daily for 5 days; 10 tablet, Albuterol Sulfate 90 mcg/actuation - inhale 1-2 puff by INHALATION route every 4-6 hours; 1 Inhaler. and Forms are Medication Reconciliation Form, Thank You Letter, Antibiotic Education, Prescription Opioid Use. Follow up: Private Physician; When: 1 - 2 days; Reason: Recheck today's complaints. Problem is new. Symptoms have improved. cp
[2018-05-18 22:56] VITALS: TEMP 97.5
[2018-05-18 22:58] VITALS: O2SAT 100
[2018-05-18 23:00] VITALS: BP 173/104
--- NOTE | 2018-05-19 09:10 | EKG ---
Test Date: 2018-05-18 Test Time: 21:36:52 Automotive Parts Manager: [id number] MEASUREMENT RESULTS: Intervals: Rate: 69 [place]: 158 QRSD: 74 QT: 436 QTc: 467 [place]: P: 45 NJ: 158 QRS: 0 T: 166 INTERPRETIVE STATEMENTS: Sinus rhythm with occasional premature ventricular complexes Possible Left atrial enlargement Left ventricular hypertrophy with repolarization abnormality Abnormal ECG Compared to ECG 05/18/2018 18:02:33 Ventricular premature complex(es) now present Atrial premature complex(es) no longer present Electronically Signed On 05-19-18 09:09:27 BIOFUELS TECHNOLOGY DEVELOPMENT MANAGER by Etsevan Duffy
--- NOTE | 2018-05-19 09:12 | EKG ---
Test Date: 2018-05-18 Test Time: 18:02:33 Picking Machine Operator: SHAY MEASUREMENT RESULTS: Intervals: Rate: 82 NE: 152 QRSD: 78 QT: 394 QTc: 460 [place]: P: 16 NE: 152 QRS: -5 T: 168 INTERPRETIVE STATEMENTS: Sinus rhythm with premature ventricular complexes Left ventricular hypertrophy with repolarization abnormality Nonspecific ST abnormality Abnormal ECG Compared to ECG 04/04/2017 21:05:30 Ventricular premature complex(es) now present Electronically Signed On 05-19-18 09:11:41 PLANNING MANAGEMENT IT SPECIALIST by Estevan Duffy
== END 2018-05-18 22:28 | disposition home or self-care (01) ==
LOC: ER 17:54
DX: J45.901 Unspecified asthma with (acute) exacerbation (principal); I11.9 Hypertensive heart disease without heart failure; I10 Essential (primary) hypertension; G40.909 Epilepsy, unspecified, not intractable, without status epilepticus; F17.210 Nicotine dependence, cigarettes, uncomplicated
CPT/HCPCS: 36415; 71045; 80048; 80076; 83735; 83880; 84484; 85025; 85610; 93005; 96361; 96374; 96375; 99285; J1940; J7030; J7512

== ENCOUNTER 2018-08-31 13:13 | Emergency (ER) | payer SELFPAY ==
[2018-08-31] MEDS ORDERED: NA CHLORIDE 0.9% 1,000 ML ONE ×2 (14:07→15:35)
[2018-08-31 14:11] LABS: Absolute Monocytes 0.9 K/uL (0.1-1.3); Absolute Neutrophil 7.8 K/uL (1.8-8.0); Basophils % 0.8 % (0-1.3); Eosinophils % 0.8 % (0-4.4); Lymphocytes % 18.4 % (15.3-44.8); MPV 7.3 fL (7.6-11.3); Monocytes % 8.1 % (3.3-12.3); Protime INR 1.07; RBC Red Blood Cell Count 3.76 M/uL (3.86-4.86)
[2018-08-31 14:26] LABS: ALT/SGPT 19 U/L (12-78); AST/SGOT 18 U/L (15-37); Albumin 3.9 g/dL (3.4-5.0); Alkaline Phosphatase 149 U/L (45-117); BUN Blood Urea Nitrogen 13 mg/dL (7-18); Bicarbonate 25 mmol/L (21-32); Bilirubin Direct 0.1 mg/dL (0-0.2); Bilirubin Total 0.4 mg/dL (0.2-1.0); Glucose Level 81 mg/dL (74-106); Magnesium 2.1 mg/dL (1.8-2.4); NT PRO-BNP 614 pg/mL (<125); Potassium 3.9 mmol/L (3.5-5.1); Protein, Total 7.6 g/dL (6.4-8.2); Sodium Level 140 mmol/L (136-145); Troponin (Emerg Dept Use Only) < 0.02 ng/mL (0.0-0.045)
--- NOTE | 2018-08-31 14:28 | RAD REPORT ---
EXAM DESCRIPTION: [place] Single View08/31/2018 2:04 pm CLINICAL HISTORY: sob COMPARISON: May 2018 FINDINGS: The lungs appear clear of acute infiltrate. The heart is normal size IMPRESSION: No acute abnormalities displayed
--- NOTE | 2018-08-31 17:43 | ER ---
Nurse's Notes [facility] Name: Geetha Khan Age: 43 yrs Sex: Female : 1975 Arrival Date: 08/31/2018 Time: 13:14 Bed 4 Private MD: Diagnosis: Hypotension Presentation: 08/31 13:22 Presenting complaint:. Presenting complaint:. Transition of care: patient was not la1 received from another setting of care. Onset of symptoms was August 31, 2018. Risk Assessment: Do you want to hurt yourself or someone else? Patient reports no desire to harm self or others. Initial Sepsis Screen: Does the patient meet any 2 criteria? No. Patient's initial sepsis screen is negative. Does the patient have a suspected source of infection? No. Patient's initial sepsis screen is negative. Care prior to arrival: None. 13:22 Method Of Arrival: Wheelchair la1 13:22 Acuity: CORRINA 2 la1 13:23 Presenting complaint: Patient states: I woke up this morning 1230 and I was fine, I got la1 up and got dressed, when I walked outside and I couldn't see, its like a big white blur, states lip were purple. 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 - Social history:: Smoking status: unknown. - Ebola Screening: : No symptoms or risks identified at this time. Screenin:31 Abuse screen: Denies threats or abuse. Denies injuries from another. Nutritional hb screening: No deficits noted. Tuberculosis screening: No symptoms or risk factors identified. Fall Risk Total Quintero Fall Scale indicates Low Risk Score (25-44 pts). Fall prevention measures have been instituted. Side Rails Up X 2 Frequent Obs/Assesments occuring Family Present and informed to notify staff if they need to leave bedside As available Patient and Family Educated on Fall Prevention Program and strategies. Assessment: 13:40 General: Appears in no apparent distress. Behavior is calm, cooperative. Pain: Denies hb pain. Neuro: Level of Consciousness is awake, alert, obeys commands, Oriented to person, place, time, situation, Reports dizziness, when standing. Cardiovascular: Capillary refill < 3 seconds Patient's skin is warm and dry. Respiratory: Airway is patent Respiratory effort is even, unlabored, Respiratory pattern is regular, symmetrical, Breath sounds are clear bilaterally. GI: Reports nausea. : No signs and/or symptoms were reported regarding the genitourinary system. EENT: No signs and/or symptoms were reported regarding the EENT system. Derm: Skin is pink, warm \\T\\ dry. Musculoskeletal: No signs and/or symptoms reported regarding the musculoskeletal system. 14:15 Reassessment: SBP 70s-80s, PA Ld aware, NS bolus infusing at this time. hb 15:11 Reassessment: Patient appears in no apparent distress at this time. Patient and/or ph family updated on plan of care and expected duration. Pain level reassessed. Patient is alert, oriented x 3, equal unlabored respirations, skin warm/dry/pink. BP low w/ SBP in 70's, fluid bolus not infusing d/t IV infiltration, new IV initiated in LAC and fluids infusing via pressure bag, pt states, " I feel okay, just a little dizzy when I sit up." Will continue to monitor. 17:42 Reassessment: Patient appears in no apparent distress at this time. Patient and/or iw family updated on plan of care and expected duration. Pain level reassessed. Patient is alert, oriented x 3, equal unlabored respirations, skin warm/dry/pink. Patient states feeling better. Patient states symptoms have improved. GI: No deficits noted. Vital Signs: 13:23 BP 73 / 50; Pulse 62; Resp 16; Pulse Ox 97% on R/A; la1 13:24 BP 67 / 48; la1 14:00 BP 76 / 43; Pulse 60; Resp 14; Pulse Ox 100% ; hb 14:30 BP 80 / 46; Pulse 63; Resp 15; Pulse Ox 100% on R/A; hb 15:14 BP 83 / 51; Pulse 64; Resp 18; Pulse Ox 98% on R/A; ph 16:45 BP 103 / 70; Pulse 88; Resp 14; Pulse Ox 100% on R/A; hb 17:38 BP 119 / 80 RA; Pulse 72 RA; iw 17:40 BP 113 / 82 RA Sitting; Pulse 69; iw 17:43 BP 110 / 70 RA Standing; Pulse 73; iw Vitals: 17:38 Cardiac Rhythm Assessment Regular. iw ED Course: 13:14 Patient arrived in ED. as 13:23 Triage completed. la1 13:23 Arm band placed on left wrist. la1 13:28 Ld Merlos PA is PHCP. jr8 13:28 Kb Morillo MD is Attending Physician. jr8 13:31 Kristin Barrera, YANETH is Primary Nurse. hb 13:57 Patient has correct armband on for positive identification. Bed in low position. Call hb light in reach. Side rails up X 1. site monitor on. Pulse ox on. NIBP on. 14:00 Initial lab(s) drawn, by me, sent to lab. Inserted saline lock: 20 gauge in right lt1 antecubital area, using aseptic technique. 14:05 XRAY Chest (1 view) In Process Unspecified. EDMS 15:15 IV discontinued, intact, bleeding controlled, No redness/swelling at site. Pressure ph dressing applied. Inserted saline lock: 20 gauge in left antecubital area, using aseptic technique. 17:43 No provider procedures requiring assistance completed. iw 17:57 IV discontinued, intact, bleeding controlled, No redness/swelling at site. Pressure iw dressing applied. Administered Medications: 13:55 Drug: NS 0.9% 1000 ml Route: IV; Rate: 1000 ml; Site: right antecubital; hb 14:30 Follow up: IV Status: Completed infusion iw 15:22 Drug: NS 0.9% 1000 ml Route: IV; Rate: 1000 ml; Site: left antecubital; hb 16:30 Follow up: IV Status: Completed infusion iw Outcome: 17:43 Discharge ordered by . jr8 17:57 Discharged to home ambulatory. iw 17:57 Condition: good 17:57 Discharge instructions given to patient, Instructed on discharge instructions, follow up and referral plans. Demonstrated understanding of instructions, follow-up care. 17:59 Patient left the ED. iw Signatures: Dispatcher [employer] Satrla Mireles Irene, RN RN Ld Ross PA PA jr8 Jorje William RN RN la1 Kelly Brown RN RN Kristin England RN RN hb Tran, [facility]
--- NOTE | 2018-08-31 17:44 | EDPHYS ---
Physician Documentation [facility] Name: Geetha Khan Age: 43 yrs Sex: Female : 1975 Arrival Date: 08/31/2018 Time: 13:14 Bed 4 Private MD: ED Physician Kb Morillo HPI: 08/31 16:02 This 43 yrs old Female presents to ER via Wheelchair with complaints of jr8 Blurred Vision, Nausea. 16:02 Onset: The symptoms/episode began/occurred acutely, today. Duration: The episode is jr8 continuous. Associated signs and symptoms: Pertinent positives: blurred vision, dizziness, weakness. Severity of symptoms: At their worst the symptoms were moderate in the emergency department the symptoms are unchanged. Patient's baseline: Neuro: alert and fully oriented, Motor: no deficits, Ambulation: walks without assistance, Speech: normal. The patient has not experienced similar symptoms in the past. The patient has not recently seen a physician. Patient stated that she started on seizure and blood pressure meds yesterday. Today upon awaking started to have blurred vision and malaise. Patient's BP upon arrival in the 60s systolic . 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 - Social history:: Smoking status: unknown. - Ebola Screening: : No symptoms or risks identified at this time. ROS: 16:02 Eyes: Negative for injury, pain, redness, and discharge, ENT: Negative for injury, jr8 pain, and discharge, Neck: Negative for injury, pain, and swelling, Cardiovascular: Negative for chest pain, palpitations, and edema, Respiratory: Negative for shortness of breath, cough, wheezing, and pleuritic chest pain, Abdomen/GI: Negative for abdominal pain, nausea, vomiting, diarrhea, and constipation, Back: Negative for injury and pain, MS/Extremity: Negative for injury and deformity, Skin: Negative for injury, rash, and discoloration. 16:02 Neuro: Positive for visual changes, weakness. Exam: 16:02 CT study not indicated or reported. Reason for not performing CT: Symptoms secondary to jr8 low BP. No altered mentation 16:02 Eyes: Pupils equal round and reactive to light, extra-ocular motions intact. Lids and lashes normal. Conjunctiva and sclera are non-icteric and not injected. Cornea within normal limits. Periorbital areas with no swelling, redness, or edema. ENT: Nares patent. No nasal discharge, no septal abnormalities noted. Tympanic membranes are normal and external auditory canals are clear. Oropharynx with no redness, swelling, or masses, exudates, or evidence of obstruction, uvula midline. Mucous membranes moist. Neck: Trachea midline, no thyromegaly or masses palpated, and no cervical lymphadenopathy. Supple, full range of motion without nuchal rigidity, or vertebral point tenderness. No Meningismus. Cardiovascular: Regular rate and rhythm with a normal S1 and S2. No gallops, murmurs, or rubs. Normal PMI, no JVD. No pulse deficits. Respiratory: Lungs have equal breath sounds bilaterally, clear to auscultation and percussion. No rales, rhonchi or wheezes noted. No increased work of breathing, no retractions or nasal flaring. Abdomen/GI: Soft, non-tender, with normal bowel sounds. No distension or tympany. No guarding or rebound. No evidence of tenderness throughout. Back: No spinal tenderness. No costovertebral tenderness. Full range of motion. Skin: Warm, dry with normal turgor. Normal color with no rashes, no lesions, and no evidence of cellulitis. MS/ Extremity: Pulses equal, no cyanosis. Neurovascular intact. Full, normal range of motion. Neuro: Awake and alert, GCS 15, oriented to person, place, time, and situation. Cranial nerves II-XII grossly intact. Motor strength 5/5 in all extremities. Sensory grossly intact. Cerebellar exam normal. Normal gait. Vital Signs: 13:23 BP 73 / 50; Pulse 62; Resp 16; Pulse Ox 97% on R/A; la1 13:24 BP 67 / 48; la1 14:00 BP 76 / 43; Pulse 60; Resp 14; Pulse Ox 100% ; hb 14:30 BP 80 / 46; Pulse 63; Resp 15; Pulse Ox 100% on R/A; hb 15:14 BP 83 / 51; Pulse 64; Resp 18; Pulse Ox 98% on R/A; ph 16:45 BP 103 / 70; Pulse 88; Resp 14; Pulse Ox 100% on R/A; hb 17:38 BP 119 / 80 RA; Pulse 72 RA; iw 17:40 BP 113 / 82 RA Sitting; Pulse 69; iw 17:43 BP 110 / 70 RA Standing; Pulse 73; iw MDM: 13:28 Patient medically screened. [facility] 17:41 Data reviewed: vital signs, nurses notes, lab test result(s), EKG, radiologic studies, jr plain films. Data interpreted: Pulse oximetry: on room air is 100 %. Interpretation: normal. Counseling: I had a detailed discussion with the patient and/or guardian regarding: the historical points, exam findings, and any diagnostic results supporting the discharge/admit diagnosis, lab results, radiology results, the need for outpatient follow up, a family practitioner, to return to the emergency department if symptoms worsen or persist or if there are any questions or concerns that arise at home. Response to treatment: the patient's symptoms have resolved after treatment, patient is well hydrated. ED course: BP at normal level now. Feeling well. Orthostatics negative. No dizziness with standing or walking. Will d/c home to f/u with PCP. Advised not to take BP medications until she follows up with PCP and sees her . 08/31 13:46 Order name: Basic Metabolic Panel [facility] 08/31 13:46 Order name: CBC with Diff [facility] 08/31 13:46 Order name: LFT's [facility] 08/31 13:46 Order name: Magnesium [facility] 08/31 13:46 Order name: NT PRO-BNP; Complete Time: 14:37 [facility] 08/31 13:46 Order name: PT-INR; Complete Time: 14:37 [facility] 08/31 13:46 Order name: Troponin (emerg Dept Use Only); Complete Time: 14:37 [facility] 08/31 13:46 Order name: XRAY Chest (1 view); Complete Time: 14:37 [facility] 08/31 13:48 Order name: Basic Metabolic Panel; Complete Time: 14:37 [facility] 08/31 13:48 Order name: CBC with Automated Diff; Complete Time: 14:37 [facility] 08/31 13:48 Order name: Liver (Hepatic) Function; Complete Time: 14:37 [facility] 08/31 13:48 Order name: Magnesium; Complete Time: 14:37 [facility] 08/31 13:46 Order name: EKG; Complete Time: 13:49 [facility] 08/31 13:46 Order name: Cardiac monitoring; Complete Time: 13:48 [facility] 08/31 13:46 Order name: EKG - Nurse/Tech; Complete Time: 13:48 [facility] 08/31 13:46 Order name: IV Saline Lock; Complete Time: 14:03 [facility] 08/31 13:46 Order name: Labs collected and sent; Complete Time: 14:03 [facility] 08/31 13:46 Order name: O2 Per Protocol; Complete Time: 13:48 [facility] 08/31 13:46 Order name: O2 Sat Monitoring; Complete Time: 13:49 [facility] 08/31 16:52 Order name: Orthostatics; Complete Time: 17:44 [facility] Administered Medications: 13:55 Drug: NS 0.9% 1000 ml Route: IV; Rate: 1000 ml; Site: right antecubital; hb 14:30 Follow up: IV Status: Completed infusion iw 15:22 Drug: NS 0.9% 1000 ml Route: IV; Rate: 1000 ml; Site: left antecubital; hb 16:30 Follow up: IV Status: Completed infusion iw Disposition: 08/31/18 17:43 Discharged to Home. Impression: Hypotension. - Condition is Stable. - Discharge Instructions: Hypotension. - Medication Reconciliation Form, Thank You Letter, Antibiotic Education, Prescription Opioid Use form. - Follow up: Private Physician; When: Tomorrow; Reason: Recheck today's complaints, Continuance of care, Re-evaluation by your physician. - Problem is new. - Symptoms are resolved. Addendum: 09/02/2018 02:12 Co-signature as Attending Physician, Kb Morillo MD. g s Signatures: Dispatcher [facility] Iqra Issa RN RN iw Ld Merlos PA PA jr8 Jorje William RN RN la1 Kristin Barrera RN RN hb Kb Morillo MD MD gs Corrections: (The following items were deleted from the chart) 08/31 17:59 17:43 08/31/2018 17:43 Discharged to Home. Impression: Hypotension. Condition is iw Stable. Forms are Medication Reconciliation Form, Thank You Letter, Antibiotic Education, Prescription Opioid Use. Follow up: Private Physician; When: Tomorrow; Reason: Recheck today's complaints, Continuance of care, Re-evaluation by your physician. Problem is new. Symptoms are resolved. jr8
[2018-08-31 18:11] VITALS: O2SAT 100
[2018-08-31 18:14] VITALS: BP 110/70
--- NOTE | 2018-08-31 20:48 | EKG ---
Test Date: 2018-08-31 Test Time: 13:34:13 Spare Hand Carding: ANDREAT MEASUREMENT RESULTS: Intervals: Rate: 57 MS: 164 QRSD: 78 QT: 472 QTc: 459 [place]: P: 33 MS: 164 QRS: 16 T: 177 INTERPRETIVE STATEMENTS: Sinus bradycardia Left ventricular hypertrophy with repolarization abnormality Abnormal ECG Compared to ECG 05/18/2018 21:36:52 Sinus rhythm no longer present Ventricular premature complex(es) no longer present Electronically Signed On 08-31-18 20:47:48 CDT by Estevan Duffy
== END 2018-08-31 17:59 | disposition home or self-care (01) ==
LOC: ER 13:13
DX: I95.9 Hypotension, unspecified (principal); I10 Essential (primary) hypertension; G40.909 Epilepsy, unspecified, not intractable, without status epilepticus; J44.9 Chronic obstructive pulmonary disease, unspecified
CPT/HCPCS: 36415; 71045; 80048; 80076; 83735; 83880; 84484; 85025; 85610; 93005; 96360; 96361; 99284; J7030

== ENCOUNTER 2018-11-02 16:58 | Emergency (ER) | payer SELFPAY ==
--- NOTE | 2018-11-02 18:46 | ER ---
Nurse's Notes [facility] Name: Geetha Khan Age: 43 yrs Sex: Female : 1975 Arrival Date: 11/02/2018 Time: 17:03 Bed 15 Private MD: Diagnosis: Epilepsy and recurrent seizures Presentation: 11/02 17:06 Presenting complaint: EMS states: [place], family reports ph that it lasted approx 5 min, has hx of seizures, did not take seizure meds this morning, post-ictal on scene, last seizure approx 2 months ago. Transition of care: patient was not received from another setting of care. Onset of symptoms was November 02, 2018. Risk Assessment: Do you want to hurt yourself or someone else? Patient reports no desire to harm self or others. Initial Sepsis Screen: Does the patient meet any 2 criteria? No. Patient's initial sepsis screen is negative. Does the patient have a suspected source of infection? No. Patient's initial sepsis screen is negative. Care prior to arrival: IV initiated. 20 GA, in the right hand. 17:06 Method Of Arrival: EMS: [facility] ph 17:06 Acuity: CORRINA 3 ph Historical: - Allergies: 17:13 No Known Drug Allergies; ph - Home Meds: 17:13 albuterol sulfate 90 mcg/actuation Inhl HFAA 2 puffs every 4 hours [Active]; Epitol 200 ph mg Oral tab 1 tab daily [Active]; lisinopril 20 mg Oral tab 1 tab twice daily [Active]; metoprolol tartrate 50 mg Oral tab 1 tab once daily [Active]; - PMHx: 17:13 Asthma; COPD; Hypertension; Seizures; ph - Immunization history:: Adult Immunizations unknown. - Social history:: Smoking status: unknown. - Ebola Screening: : No symptoms or risks identified at this time. Screenin:52 Abuse screen: Denies threats or abuse. Denies injuries from another. Nutritional ph screening: No deficits noted. Tuberculosis screening: No symptoms or risk factors identified. Fall Risk None identified. Assessment: 17:30 General: Appears in no apparent distress. comfortable, well groomed, Behavior is calm, ph cooperative, appropriate for age. Pain: Denies pain. Neuro: Level of Consciousness is awake, obeys commands, post ictal, Oriented to person, place, situation, Speech is normal, Seizure activity reported prior to arrival. Seizure lasted approximately 5 minutes. Patient is post-ictal at this time. Cardiovascular: Capillary refill < 3 seconds in bilateral fingers Patient's skin is warm and dry. Respiratory: Airway is patent Respiratory effort is even, unlabored, Respiratory pattern is regular, symmetrical. Derm: Skin is intact, is healthy with good turgor, Skin is pink, warm \T\ dry. Musculoskeletal: Circulation, motion, and sensation intact. Range of motion: intact in all extremities. 18:51 Reassessment: Patient appears in no apparent distress at this time. Patient and/or ph family updated on plan of care and expected duration. Pain level reassessed. Patient is alert, oriented x 3, equal unlabored respirations, skin warm/dry/pink. Vital Signs: 17:10 BP 156 / 96; Pulse 91; Resp 18; Temp 97.8; Pulse Ox 100% on R/A; ph 18:00 BP 136 / 78; Pulse 91; Resp 18; Pulse Ox 99% on R/A; ph 18:51 BP 130 / 75; Pulse 90; Resp 18; Temp 97.8; Pulse Ox 100% on R/A; ph [place] Coma Score: 17:25 Eye Response: spontaneous(4). Verbal Response: confused(4). Motor Response: obeys ph commands(6). Total: 14. ED Course: 17:03 Patient arrived in ED. ph 17:06 Randy Naidu NP is PHCP. pm1 17:06 Kb Morillo MD is Attending Physician. pm1 17:10 Triage completed. ph 17:14 Kelly Brown, RN is Primary Nurse. ph 17:20 Patient has correct armband on for positive identification. Bed in low position. Call ph light in reach. Side rails up X2. Seizure precautions initiated. Pulse ox on. NIBP on. Door closed. Noise minimized. Warm blanket given. 17:30 Maintain EMS IV. Dressing intact. Good blood return noted. Site clean \T\ dry. Gauge \T\ ph site: 20 R hand. 18:53 Arm band placed on. ph 18:53 No provider procedures requiring assistance completed. ph 19:19 IV discontinued, intact, bleeding controlled, No redness/swelling at site. Pressure ph dressing applied. Administered Medications: 17:50 Drug: TEGretol 200 mg Route: PO; ph 18:30 Follow up: Response: No adverse reaction ph Outcome: 18:45 Discharge ordered by MD. pm1 19:19 Discharged to home ambulatory, with family. ph 19:19 Condition: good 19:19 Discharge instructions given to patient, family, Instructed on discharge instructions, follow up and referral plans. Demonstrated understanding of instructions, follow-up care. 19:20 Patient left the ED. ph Signatures: Kelly Brown RN RN ph Randy Naidu, [employer] pm1
--- NOTE | 2018-11-02 18:46 | EDPHYS ---
Physician Documentation [facility] Name: Geetha Khan Age: 43 yrs Sex: Female : 1975 Arrival Date: 11/02/2018 Time: 17:03 Bed 15 Private MD: ED Physician Kb Morillo HPI: 11/02 17:37 This 43 yrs old Female presents to ER via EMS with complaints of Seizure. pm1 17:37 The patient presents after having a single isolated seizure, that lasted 5 minute(s), pm1 the episode(s) was witnessed, by family, granddaughter, . Character of seizure(s): Motor activity: generalized, Incontinence: none, Apnea: the patient did not experience apnea, Circulation: the patient did not experience evidence of pulse disturbance. Seizure onset: just prior to arrival. Context: the seizure(s) was witnessed, by family, occurred [facility] [employer]. Seizure Hx: Last seizure: The patient's last seizure was approximately 2 month(s) ago, Seizure medications: tegretol, Patient did not take her medication this AM. Associated injury: The patient did not suffer any apparent associated injury. EMS care: IV saline lock to right hand. Current symptoms: sleepy. The patient has experienced similar episodes in the past, several times. The patient has not recently seen a physician. Patient was sitting at table at the [employer] when she started to have a seizure. Cause of seizure due to not taking her medication this AM. Patient awake and alert but sleepy. Denies any pain or injury. Seizure was witnessed by her family who are currently at bedside. Historical: - Allergies: 17:13 No Known Drug Allergies; ph - Home Meds: 17:13 albuterol sulfate 90 mcg/actuation Inhl HFAA 2 puffs every 4 hours [Active]; Epitol 200 ph mg Oral tab 1 tab daily [Active]; lisinopril 20 mg Oral tab 1 tab twice daily [Active]; metoprolol tartrate 50 mg Oral tab 1 tab once daily [Active]; - PMHx: 17:13 Asthma; COPD; Hypertension; Seizures; ph - Immunization history:: Adult Immunizations unknown. - Social history:: Smoking status: unknown. - Ebola Screening: : No symptoms or risks identified at this time. ROS: 17:37 Constitutional: Negative for fever, chills, and weight loss, Eyes: Negative for injury, pm1 pain, redness, and discharge, ENT: Negative for injury, pain, and discharge, Neck: Negative for injury, pain, and swelling, Cardiovascular: Negative for chest pain, palpitations, and edema, Respiratory: Negative for shortness of breath, cough, wheezing, and pleuritic chest pain, Abdomen/GI: Negative for abdominal pain, nausea, vomiting, diarrhea, and constipation, Back: Negative for injury and pain, : Negative for injury, bleeding, discharge, and swelling, MS/Extremity: Negative for injury and deformity, Skin: Negative for injury, rash, and discoloration. 17:37 Neuro: Positive for seizure activity. Exam: 17:37 Constitutional: This is a well developed, well nourished patient who is awake, alert, pm1 and in no acute distress. Head/Face: Normocephalic, atraumatic. Eyes: Pupils equal round and reactive to light, extra-ocular motions intact. Lids and lashes normal. Conjunctiva and sclera are non-icteric and not injected. Cornea within normal limits. Periorbital areas with no swelling, redness, or edema. ENT: Nares patent. No nasal discharge, no septal abnormalities noted. Tympanic membranes are normal and external auditory canals are clear. Oropharynx with no redness, swelling, or masses, exudates, or evidence of obstruction, uvula midline. Mucous membranes moist. Neck: Trachea midline, no thyromegaly or masses palpated, and no cervical lymphadenopathy. Supple, full range of motion without nuchal rigidity, or vertebral point tenderness. No Meningismus. Chest/axilla: Normal chest wall appearance and motion. Nontender with no deformity. No lesions are appreciated. Cardiovascular: Regular rate and rhythm with a normal S1 and S2. No gallops, murmurs, or rubs. Normal PMI, no JVD. No pulse deficits. Respiratory: Lungs have equal breath sounds bilaterally, clear to auscultation and percussion. No rales, rhonchi or wheezes noted. No increased work of breathing, no retractions or nasal flaring. Abdomen/GI: Soft, non-tender, with normal bowel sounds. No distension or tympany. No guarding or rebound. No evidence of tenderness throughout. Back: No spinal tenderness. No costovertebral tenderness. Full range of motion. Skin: Warm, dry with normal turgor. Normal color with no rashes, no lesions, and no evidence of cellulitis. MS/ Extremity: Pulses equal, no cyanosis. Neurovascular intact. Full, normal range of motion. 17:37 Neuro: Orientation: to person, place, time, situation, Mentation: sleepy, Motor: is normal, moves all fours, strength is normal, strength is 5/5 in all extremities, Sensation: is normal, no obvious gross deficits. Vital Signs: 17:10 BP 156 / 96; Pulse 91; Resp 18; Temp 97.8; Pulse Ox 100% on R/A; ph 18:00 BP 136 / 78; Pulse 91; Resp 18; Pulse Ox 99% on R/A; ph 18:51 BP 130 / 75; Pulse 90; Resp 18; Temp 97.8; Pulse Ox 100% on R/A; ph Mariluz Coma Score: 17:25 Eye Response: spontaneous(4). Verbal Response: confused(4). Motor Response: obeys ph commands(6). Total: 14. MDM: 17:09 Patient medically screened. pm1 17:42 Data reviewed: vital signs. Data interpreted: Pulse oximetry: on room air is 100 %. pm1 Interpretation: normal. 18:44 Counseling: I had a detailed discussion with the patient and/or guardian regarding: the pm1 historical points, exam findings, and any diagnostic results supporting the discharge/admit diagnosis, the need for outpatient follow up, a neurologist, to return to the emergency department if symptoms worsen or persist or if there are any questions or concerns that arise at home. Administered Medications: 17:50 Drug: TEGretol 200 mg Route: PO; ph 18:30 Follow up: Response: No adverse reaction ph Disposition: 11/02/18 18:45 Discharged to Home. Impression: Epilepsy and recurrent seizures. - Condition is Stable. - Discharge Instructions: Seizure, Adult, [id number]. - Medication Reconciliation Form, Thank You Letter, Antibiotic Education, Prescription Opioid Use form. - Follow up: Emergency Department; When: As needed; Reason: Worsening of condition. Follow up: Private Physician; When: 2 - 3 days; Reason: Recheck today's complaints, Continuance of care, Re-evaluation by your physician. - Problem is new. - Symptoms have improved. Addendum: 11/04/2018 15:37 Co-signature as Attending Physician, Kb Morillo MD. g s Signatures: Kelly Brown, RN RN ph Randy Naidu, PORTABLE TRACK CREW CHIEF PORTABLE TRACK CREW CHIEF pm1 Kb Morillo MD MD Corrections: (The following items were deleted from the chart) 11/02 19:20 18:45 11/02/2018 18:45 Discharged to Home. Impression: Epilepsy and recurrent seizures. ph Condition is Stable. Forms are Medication Reconciliation Form, Thank You Letter, Antibiotic Education, Prescription Opioid Use. Follow up: Emergency Department; When: As needed; Reason: Worsening of condition. Follow up: Private Physician; When: 2 - 3 days; Reason: Recheck today's complaints, Continuance of care, Re-evaluation by your physician. Problem is new. Symptoms have improved. pm1
[2018-11-02 20:04] VITALS: TEMP 97.8
[2018-11-02 20:06] VITALS: BP 130/75; O2SAT 100
== END 2018-11-02 19:20 | disposition home or self-care (01) ==
LOC: ER 16:58
DX: G40.802 Other epilepsy, not intractable, without status epilepticus (principal); I10 Essential (primary) hypertension; J44.9 Chronic obstructive pulmonary disease, unspecified; J45.909 Unspecified asthma, uncomplicated

== ENCOUNTER 2019-02-10 11:01 | Emergency (ER) | payer SELFPAY ==
[2019-02-10] MEDS ORDERED: ALBUTEROL 2.5 MG/3 ML NEB SOL ONE (12:02)
[2019-02-10] MEDS ORDERED: METHYLPREDNISOLONE 125 MG INJ ONE (12:02)
[2019-02-10] MEDS ORDERED: IPRATROPIUM BROM 0.5MG/2.5ML ONE (12:02)
[2019-02-10] MEDS ORDERED: MORPHINE 4 MG/ML SYR ONE ×2 (12:02→12:16)
[2019-02-10] MEDS ORDERED: ONDANSETRON 4 MG/2 ML VIAL ONE (12:03)
[2019-02-10 12:33] LABS: Absolute Lymphocytes (CBC) 1.3 K/uL (0.7-4.9); Basophils % 0.5 % (0-1.3); Hematocrit 29.8 % (36.0-45.0); Lymphocytes % 13.5 % (15.3-44.8); MPV 7.4 fL (7.6-11.3); RBC Red Blood Cell Count 3.85 M/uL (3.86-4.86)
--- NOTE | 2019-02-10 12:40 | RAD REPORT ---
EXAM DESCRIPTION: RAD - Chest Single View - 02/10/2019 12:33 pm CLINICAL HISTORY: DYSPNEA Chest pain. COMPARISON: Chest Single View dated 08/31/2018; Chest Single View dated 05/18/2018; Chest Single View d ated 06/11/2017; Chest Pa And Lat (2 Views) dated 05/10/2017 FINDINGS: Portable technique limits examination quality. The lungs are grossly clear. The heart is mildly prominent in size with a tortuous thoracic aorta. No displaced fractures. IMPRESSION: No acute intrathoracic process suspected.
[2019-02-10 12:50] LABS: Albumin 3.5 g/dL (3.4-5.0); Bilirubin Direct 0.1 mg/dL (0-0.2); Bilirubin Total 0.3 mg/dL (0.2-1.0); Potassium 3.3 mmol/L (3.5-5.1); Protein, Total 7.4 g/dL (6.4-8.2)
--- NOTE | 2019-02-10 13:15 | RAD REPORT ---
EXAM DESCRIPTION: CTAbdomen Pelvis W Contrast - 02/10/2019 1:02 pm CLINICAL HISTORY: Abdominal pain. ABD PAIN COMPARISON: Abdomen Pelvis W Contrast dated 08/10/2015 TECHNIQUE: Biphasic CT imaging of the abdomen and pelvis was performed with 100 ml non-ionic IV cont rast. All CT scans are performed using dose optimization technique as appropriate and may include automated exposure control or mA/KV adjustment according to patient size. FINDINGS: The lung bases are clear.Cholelithiasis suspected. The liver demonstrates mild intra and extrahepatic biliary tree dilatation, similar to the 2016 halie rative study. No aggressive liver mass. The spleen, pancreas and adrenal glands are normal. Atrophic right kidney with areas of scarring. Left kidney appears unremarkable. No bowel obstruction, free air, free fluid or abscess. Moderate stool is present in the rectosigmoid colon. The appendix is normal. No evidence of significant lymphadenopathy. No suspicious bony findings. IMPRESSION: Cholelithiasis. Mild intra and extrahepatic biliary tree prominence appears similar to the 2016 comparative study.
--- NOTE | 2019-02-10 13:24 | EDPHYS ---
Physician Documentation [facility] Name: Geetha Khan Age: 43 yrs Sex: Female : 1975 Arrival Date: 02/10/2019 Time: 11:02 Bed 25 Private MD: ED Physician Tommie Gomez HPI: 02/10 12:48 This 43 yrs old Female presents to ER via Ambulatory with complaints of jr8 Vomiting/Diarrhea, Abdominal Pain. 12:48 The patient presents to the emergency department with nausea, vomiting, diarrhea, jr8 abdominal pain. Onset: The symptoms/episode began/occurred acutely, last night. Possible causes: unknown. The symptoms are aggravated by nothing. The symptoms are alleviated by nothing. Associated signs and symptoms: The patient has no apparent associated signs or symptoms. Severity of symptoms: At their worst the symptoms were moderate in the emergency department the symptoms are unchanged. The patient has not experienced similar symptoms in the past. The patient has not recently seen a physician. 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 - Social history:: Smoking status: Patient/guardian denies using tobacco. - Ebola Screening: : No symptoms or risks identified at this time. ROS: 12:48 Eyes: Negative for injury, pain, redness, and discharge, ENT: Negative for injury, jr8 pain, and discharge, Neck: Negative for injury, pain, and swelling, Cardiovascular: Negative for chest pain, palpitations, and edema, Respiratory: Negative for shortness of breath, cough, wheezing, and pleuritic chest pain, Back: Negative for injury and pain, MS/Extremity: Negative for injury and deformity, Skin: Negative for injury, rash, and discoloration, Neuro: Negative for headache, weakness, numbness, tingling, and seizure. 12:48 Abdomen/GI: Positive for abdominal pain, nausea, vomiting, and diarrhea, Negative for abdominal cramps, abdominal distension, anorexia, dysphagia, hematemesis, black/tarry stool, rectal pain, rectal bleeding, bowel incontinence, flatulence. Exam: 12:48 Eyes: Pupils equal round and reactive to light, extra-ocular motions intact. Lids and jr8 lashes normal. Conjunctiva and sclera are non-icteric and not injected. Cornea within normal limits. Periorbital areas with no swelling, redness, or edema. ENT: Nares patent. No nasal discharge, no septal abnormalities noted. Tympanic membranes are normal and external auditory canals are clear. Oropharynx with no redness, swelling, or masses, exudates, or evidence of obstruction, uvula midline. Mucous membranes moist. Neck: Trachea midline, no thyromegaly or masses palpated, and no cervical lymphadenopathy. Supple, full range of motion without nuchal rigidity, or vertebral point tenderness. No Meningismus. Cardiovascular: Regular rate and rhythm with a normal S1 and S2. No gallops, murmurs, or rubs. Normal PMI, no JVD. No pulse deficits. Back: No spinal tenderness. No costovertebral tenderness. Full range of motion. Skin: Warm, dry with normal turgor. Normal color with no rashes, no lesions, and no evidence of cellulitis. MS/ Extremity: Pulses equal, no cyanosis. Neurovascular intact. Full, normal range of motion. Neuro: Awake and alert, GCS 15, oriented to person, place, time, and situation. Cranial nerves II-XII grossly intact. Motor strength 5/5 in all extremities. Sensory grossly intact. Cerebellar exam normal. Normal gait. 12:48 Respiratory: the patient does not display signs of respiratory distress, Respirations: normal, symetrical, no use of accessory muscles, no grunting, no evidence of nasal flaring, no prolonged exhalations, no pursed lip breathing, no retractions, no shallow respirations, no splinting, no tachypnea, Breath sounds: wheezing: expiratory that is moderate, is heard diffusely. 12:48 Abdomen/GI: Inspection: obese Bowel sounds: active, all quadrants, Palpation: soft, in all quadrants, mild abdominal tenderness, in the epigastric area, right upper quadrant and left upper quadrant, mass, is not appreciated, rebound tenderness, is not appreciated, voluntary guarding, is not appreciated, involuntary guarding, is not appreciated, no appreciated organomegaly, Indicators: McBurney's point is not tender, Torres's sign is negative, Rovsing's sign is negative, Liver: tenderness, is not appreciated. Vital Signs: 11:10 BP 161 / 94; Pulse 52; Resp 18; Temp 97.5; Pulse Ox 100% on R/A; Weight 68.04 kg; la1 Height 5 ft. 2 in. (157.48 cm); 12:32 BP 176 / 98; Pulse 65; Resp 18; Pulse Ox 100% on Nebulizer Mask; aj1 11:10 Body Mass Index 27.44 (68.04 kg, 157.48 cm) la1 MDM: 11:30 Patient medically screened. jr8 13:20 Data reviewed: vital signs, nurses notes, lab test result(s), radiologic studies, CT jr8 scan, plain films. Data interpreted: Pulse oximetry: on room air is 100 %. Interpretation: normal. Counseling: I had a detailed discussion with the patient and/or guardian regarding: the historical points, exam findings, and any diagnostic results supporting the discharge/admit diagnosis, lab results, radiology results, the need for outpatient follow up, a general surgeon, to return to the emergency department if symptoms worsen or persist or if there are any questions or concerns that arise at home. ED course: Patient feeling better. Discussed with her that she needs to f/u with general surgery. Will f/u. Return precautions given . 02/10 11:43 Order name: Basic Metabolic Panel; Complete Time: 13:04 02/10 11:43 Order name: CBC with Diff; Complete Time: 12:46 02/10 11:43 Order name: Creatinine for Radiology; Complete Time: 12:46 02/10 11:43 Order name: Hepatic Function; Complete Time: 13:04 02/10 11:43 Order name: Lipase; Complete Time: 13:04 02/10 11:43 Order name: XRAY Chest (1 view); Complete Time: 12:46 02/10 11:43 Order name: IV Saline Lock; Complete Time: 12:21 02/10 11:43 Order name: Labs collected and sent; Complete Time: 12:22 02/10 12:47 Order name: CT Abd/Pelvis - IV Contrast Only; Complete Time: 13:19 Administered Medications: 12:21 Drug: morphine 4 mg {Note: RASS score 0 patient is alert.} Route: IVP; Site: left aj1 antecubital; 13:55 Follow up: Response: No adverse reaction; Pain is decreased; RASS: Alert and Calm (0) aj1 12:21 Drug: Zofran 4 mg Route: IVP; Site: left antecubital; aj1 13:55 Follow up: Response: No adverse reaction aj1 12:21 Drug: Albuterol - atroVENT (3:1) (2.5 mg - 0.5 mg) 3 ml Route: Nebulizer; aj1 13:56 Follow up: Response: No adverse reaction aj1 12:21 Drug: SOLU-Medrol 125 mg Route: IVP; Site: left antecubital; aj1 13:56 Follow up: Response: No adverse reaction aj1 Disposition: 17:51 Co-signature as Attending Physician, Tommie Gomez MD Did not see or evaluate patient. ps1 Chart signed for administrative purposes. Not an endorsement of care. . Disposition: 02/10/19 13:24 Discharged to Home. Impression: Cholelithiasis, Bronchitis, not specified as acute or chronic. - Condition is Stable. - Discharge Instructions: Acute Bronchitis, Adult, Cholelithiasis. - Prescriptions for Prednisone 20 mg Oral Tablet - take 1 tablet by ORAL route once daily for 5 days; 5 tablet. Tylenol- Codeine #3 300-30 mg Oral Tablet - take 2 tablets by ORAL route every 6 hours As needed; 12 tablet. Zofran 4 mg Oral Tablet - take 1 tablet by ORAL route every 12 hours As needed; 20 tablet. Albuterol Sulfate 90 mcg/actuation - inhale 1-2 puff by INHALATION route every 4-6 hours; 1 Inhaler. - Medication Reconciliation Form, Thank You Letter, Antibiotic Education, Prescription Opioid Use form. - Follow up: Crow Kaiser MD; When: 5 - 6 days; Reason: Recheck today's complaints, Continuance of care, Re-evaluation by your physician. - Problem is new. - Symptoms have improved. Signatures: Dispatcher [employer] Sushma Goodman RN RN [email or web address] Ld Merlos PA PA jr8 Jorje William RN RN la1 Tommie Gomez MD MD ps1 Corrections: (The following items were deleted from the chart) 13:57 13:24 02/10/2019 13:24 Discharged to Home. Impression: Cholelithiasis; Bronchitis, not aj1 specified as acute or chronic. Condition is Stable. Forms are Medication Reconciliation Form, Thank You Letter, Antibiotic Education, Prescription Opioid Use. Follow up: Crow Kaiser; When: 5 - 6 days; Reason: Recheck today's complaints, Continuance of care, Re-evaluation by your physician. Problem is new. Symptoms have improved. jr8
--- NOTE | 2019-02-10 13:24 | ER ---
Nurse's Notes [facility] Name: Geetah Khan Age: 43 yrs Sex: Female : 1975 Arrival Date: 02/10/2019 Time: 11:02 Bed 25 Private MD: Diagnosis: Cholelithiasis;Bronchitis, not specified as acute or chronic Presentation: 02/10 11:09 Presenting complaint: Patient states: N/V/D and chills that began today. Transition of la1 care: patient was not received from another setting of care. Onset of symptoms was February 10, 2019. Risk Assessment: Do you want to hurt yourself or someone else? Patient reports no desire to harm self or others. Initial Sepsis Screen: Does the patient meet any 2 criteria? No. Patient's initial sepsis screen is negative. Does the patient have a suspected source of infection? No. Patient's initial sepsis screen is negative. Care prior to arrival: None. 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 - Social history:: Smoking status: Patient/guardian denies using tobacco. - Ebola Screening: : No symptoms or risks identified at this time. Screenin:30 Abuse screen: Denies threats or abuse. Denies injuries from another. Nutritional aj1 screening: No deficits noted. Tuberculosis screening: No symptoms or risk factors identified. 13:57 Fall Risk None identified. aj1 Assessment: 11:30 General: Appears in no apparent distress. uncomfortable, Behavior is cooperative, aj1 anxious. Pain: Complains of pain in abdomen diffusely Alleviated by nothing. Aggravated by nothing. Neuro: Level of Consciousness is awake, alert, obeys commands, Oriented to person, place, time, situation. Cardiovascular: Patient's skin is warm and dry. Respiratory: Airway is patent Respiratory effort is even, unlabored, Respiratory pattern is regular, symmetrical. GI: Abdomen is non-distended, Bowel sounds present X 4 quads. Abd is soft X 4 quads Abdomen is tender to palpation X 4 quads. Reports lower abdominal pain, upper abdominal pain, diarrhea, nausea, vomiting. : No signs and/or symptoms were reported regarding the genitourinary system. EENT: No signs and/or symptoms were reported regarding the EENT system. Derm: No signs and/or symptoms reported regarding the dermatologic system. Skin is pink, warm \T\ dry. normal. Musculoskeletal: No signs and/or symptoms reported regarding the musculoskeletal system. Circulation, motion, and sensation intact. 12:32 Reassessment: Patient appears in no apparent distress at this time. No changes from aj1 previously documented assessment. Patient and/or family updated on plan of care and expected duration. Pain level reassessed. Patient is alert, oriented x 3, equal unlabored respirations, skin warm/dry/pink. 13:30 Reassessment: Patient appears in no apparent distress at this time. No changes from aj1 previously documented assessment. Patient and/or family updated on plan of care and expected duration. Pain level reassessed. Patient is alert, oriented x 3, equal unlabored respirations, skin warm/dry/pink. Vital Signs: 11:10 BP 161 / 94; Pulse 52; Resp 18; Temp 97.5; Pulse Ox 100% on R/A; Weight 68.04 kg; la1 Height 5 ft. 2 in. (157.48 cm); 12:32 BP 176 / 98; Pulse 65; Resp 18; Pulse Ox 100% on Nebulizer Mask; aj1 11:10 Body Mass Index 27.44 (68.04 kg, 157.48 cm) la1 ED Course: 11:02 Patient arrived in ED. as 11:09 Triage completed. la1 11:10 Arm band placed on left wrist. la1 11:12 Ld Merlos PA is PHCP. jr8 11:12 Tommie Gomez MD is Attending Physician. jr8 11:12 Sushma Nielson, YANETH is Primary Nurse. aj1 11:30 Patient has correct armband on for positive identification. Bed in low position. Call [facility] light in reach. 11:30 No provider procedures requiring assistance completed. aj1 12:12 Initial lab(s) drawn, by tx, sent to lab. Inserted saline lock: 20 gauge in right [facility] antecubital area, using aseptic technique. Blood collected. 12:33 XRAY Chest (1 view) In Process Unspecified. EDMS 13:03 CT Abd/Pelvis - IV Contrast Only In Process Unspecified. EDMS 13:23 Crow Kaiser MD is Referral Physician. jr8 13:55 IV discontinued, intact, bleeding controlled, No redness/swelling at site. Pressure aj1 dressing applied. Administered Medications: 12:21 Drug: morphine 4 mg {Note: RASS score 0 patient is alert.} Route: IVP; Site: left aj1 antecubital; 13:55 Follow up: Response: No adverse reaction; Pain is decreased; RASS: Alert and Calm (0) aj1 12:21 Drug: Zofran 4 mg Route: IVP; Site: left antecubital; aj1 13:55 Follow up: Response: No adverse reaction aj1 12:21 Drug: Albuterol - atroVENT (3:1) (2.5 mg - 0.5 mg) 3 ml Route: Nebulizer; aj1 13:56 Follow up: Response: No adverse reaction aj1 12:21 Drug: SOLU-Medrol 125 mg Route: IVP; Site: left antecubital; aj1 13:56 Follow up: Response: No adverse reaction aj1 Outcome: 13:24 Discharge ordered by . jr8 13:56 Discharged to home ambulatory. aj1 13:56 Condition: good 13:56 Discharge instructions given to patient, Instructed on discharge instructions, follow up and referral plans. no drinking with medication, no driving heavy equipment, medication usage, Demonstrated understanding of instructions, follow-up care, medications, Prescriptions given X 4. 13:57 Patient left the ED. aj1 Signatures: Dispatcher [employer] EDSushma Sumner, RN RN aj1 Starla Khan Josh, PA PA jr8 Jorje William RN RN la1
[2019-02-10 14:19] VITALS: TEMP 97.5; O2SAT 100
[2019-02-10 14:20] VITALS: BP 176/98
== END 2019-02-10 13:57 | disposition home or self-care (01) ==
LOC: ER 11:01
DX: K80.20 Calculus of gallbladder without cholecystitis without obstruction (principal); J40 Bronchitis, not specified as acute or chronic; I10 Essential (primary) hypertension
CPT/HCPCS: 36415; 71045; 74177; 80048; 80076; 83690; 85025; 94640; 96374; 96375; 99284; J2405; J2930

== ENCOUNTER 2019-02-13 18:23 | Emergency (ER) | payer SELFPAY ==
[2019-02-13 21:31] LABS: Basophils % 0.5 % (0-1.3); Hematocrit 30.5 % (36.0-45.0); Lymphocytes % 16.7 % (15.3-44.8); MPV 6.7 fL (7.6-11.3); RBC Red Blood Cell Count 3.94 M/uL (3.86-4.86)
[2019-02-13 21:55] LABS: ALT/SGPT 42 U/L (12-78); AST/SGOT 24 U/L (15-37); Albumin 3.3 g/dL (3.4-5.0); Alkaline Phosphatase 169 U/L (45-117); BUN Blood Urea Nitrogen 9 mg/dL (7-18); Bicarbonate 31 mmol/L (21-32); Bilirubin Direct < 0.1 mg/dL (0-0.2); Glucose Level 86 mg/dL (74-106); Lipase 167 U/L (73-393); Potassium 3.6 mmol/L (3.5-5.1); Protein, Total 7.1 g/dL (6.4-8.2); Sodium Level 140 mmol/L (136-145)
[2019-02-13 21:56] LABS: Bilirubin Total < 0.1 mg/dL (0.2-1.0)
[2019-02-13] MEDS ORDERED: ONDANSETRON 4 MG/2 ML VIAL ONE (23:24)
[2019-02-13] MEDS ORDERED: MORPHINE 2 MG/ML SYR ONE (23:24)
[2019-02-13] MEDS ORDERED: FAMOTIDINE 20 MG/2 ML VIAL IV ONE (23:24)
[2019-02-13] MEDS ORDERED: PIPER/TAZO/NS 3.375gm 3.375 GM/100 ML BAG ONE (23:25)
[2019-02-14 00:21] LABS: Troponin (Emerg Dept Use Only) < 0.02 ng/mL (0.0-0.045)
--- NOTE | 2019-02-14 01:45 | ER ---
Nurse's Notes [facility] Name: Geetha Khan Age: 43 yrs Sex: Female : 1975 Arrival Date: 02/13/2019 Time: 18:25 Bed 13 Private MD: Diagnosis: Urinary tract infection, site not specified;Cholelithiasis Presentation: 02/13 19:25 Presenting complaint: Patient states: "I have a gal stone on my gal bladder and the ER jd3 doctor told me to come back to the ER if it got worse. I am very nauseous.". Transition of care: patient was not received from another setting of care. Onset of symptoms was February 13, 2019. Risk Assessment: Do you want to hurt yourself or someone else? Patient reports no desire to harm self or others. Initial Sepsis Screen: Does the patient meet any 2 criteria? No. Patient's initial sepsis screen is negative. Does the patient have a suspected source of infection? No. Patient's initial sepsis screen is negative. Care prior to arrival: None. 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 - Social history:: Smoking status: Patient uses tobacco products, denies chronic smoking, but will smoke occasionally. - Ebola Screening: : Patient negative for fever greater than or equal to 101.5 degrees Fahrenheit, and additional compatible Ebola Virus Disease symptoms. - Family history:: not pertinent. Screenin:17 Abuse screen: Denies threats or abuse. Denies injuries from another. Nutritional aj1 screening: No deficits noted. Tuberculosis screening: No symptoms or risk factors identified. 02/14 02:43 Fall Risk None identified. aj1 Assessment: 02/13 20:17 General: Appears in no apparent distress. comfortable, Behavior is calm, cooperative, aj1 appropriate for age. Pain: Complains of pain in epigastric area and right upper quadrant Pain does not radiate. Pain currently is 10 out of 10 on a pain scale. Quality of pain is described as sharp, stabbing. Neuro: Level of Consciousness is awake, alert, obeys commands, Oriented to person, place, time, situation. Cardiovascular: Patient's skin is warm and dry. Respiratory: Airway is patent Respiratory effort is even, unlabored, Respiratory pattern is regular, symmetrical. GI: Abdomen is non-distended, Bowel sounds present X 4 quads. Abd is soft X 4 quads Abdomen is tender to palpation in epigastric area and right upper quadrant Reports nausea, vomiting, Patient currently denies diarrhea. : No signs and/or symptoms were reported regarding the genitourinary system. EENT: No signs and/or symptoms were reported regarding the EENT system. Derm: No signs and/or symptoms reported regarding the dermatologic system. Skin is pink, warm \\T\\ dry. normal. Musculoskeletal: No signs and/or symptoms reported regarding the musculoskeletal system. Circulation, motion, and sensation intact. 21:09 Reassessment: Patient appears in no apparent distress at this time. No changes from aj1 previously documented assessment. Patient and/or family updated on plan of care and expected duration. Pain level reassessed. Patient is alert, oriented x 3, equal unlabored respirations, skin warm/dry/pink. 22:10 Reassessment: Patient appears in no apparent distress at this time. No changes from aj1 previously documented assessment. Patient and/or family updated on plan of care and expected duration. Pain level reassessed. Patient is alert, oriented x 3, equal unlabored respirations, skin warm/dry/pink. 23:10 Reassessment: Patient and/or family updated on plan of care and expected duration. Pain aj1 level reassessed. General: Appears in no apparent distress. comfortable, Behavior is calm, cooperative, appropriate for age. Neuro: Level of Consciousness is awake, alert, obeys commands, Oriented to person, place, time, situation. Cardiovascular: Patient's skin is warm and dry. Respiratory: Airway is patent Respiratory effort is even, unlabored, Respiratory pattern is regular, symmetrical. Derm: No signs and/or symptoms reported regarding the dermatologic system. Skin is pink, warm \\T\\ dry. normal. Musculoskeletal: No signs and/or symptoms reported regarding the musculoskeletal system. Circulation, motion, and sensation intact. 02/14 00:33 Reassessment: Patient appears in no apparent distress at this time. No changes from aj1 previously documented assessment. Patient and/or family updated on plan of care and expected duration. Pain level reassessed. Patient is alert, oriented x 3, equal unlabored respirations, skin warm/dry/pink. 01:30 Reassessment: Patient appears in no apparent distress at this time. No changes from aj1 previously documented assessment. Patient and/or family updated on plan of care and expected duration. Pain level reassessed. Patient is alert, oriented x 3, equal unlabored respirations, skin warm/dry/pink. 01:52 Reassessment: Discharge pending labs that were ordered at 0130. aj1 02:43 Reassessment: Okay to discharge patient now, do not wait for Tegretol level per Dr. trell Grimm. Vital Signs: 02/13 19:29 BP 179 / 11; Pulse 101; Resp 16 S; Temp 98.0(O); Pulse Ox 100% on R/A; Weight 68.04 kg jd3 (R); Height 5 ft. 2 in. (157.48 cm) (R); Pain 10/10; 20:17 BP 166 / 105; Pulse 81; Resp 18; Pulse Ox 100% on R/A; Pain 10/10; aj1 21:10 BP 137 / 93; Pulse 78; Resp 16; Pulse Ox 100% on R/A; aj1 22:15 BP 161 / 103; Pulse 75; Resp 18; Pulse Ox 97% on R/A; aj1 23:15 BP 171 / 107; Pulse 73; Resp 18; Pulse Ox 100% on R/A; aj1 02/14 00:38 BP 165 / 102; Pulse 71; Resp 18; Pulse Ox 99% on R/A; aj1 01:30 BP 162 / 98; Pulse 75; Resp 18; Pulse Ox 97% on R/A; aj1 02:44 BP 162 / 101; Pulse 68; Resp 18; Pulse Ox 99% on R/A; aj1 02/13 19:29 Body Mass Index 27.44 (68.04 kg, 157.48 cm) jd3 ED Course: 02/13 18:25 Patient arrived in ED. cl3 19:27 Triage completed. jd3 19:30 Arm band placed on. jd3 20:16 Sushma Nielson, RN is Primary Nurse. aj1 20:17 Patient has correct armband on for positive identification. Bed in low position. Call aj1 light in reach. 20:17 No provider procedures requiring assistance completed. aj1 21:10 Initial lab(s) drawn, by me, sent to lab. Inserted saline lock: 22 gauge in left aj antecubital area, using aseptic technique. Blood collected. 22:26 Michael Grimm MD is Attending Physician. [facility] 02/14 01:44 Corw Kaiser MD is Referral Physician. [facility] 02:44 IV discontinued, intact, bleeding controlled, No redness/swelling at site. Pressure aj1 dressing applied. 05:01 CT Abd/Pelvis - IV Contrast Only In Process Unspecified. EDMS 05:02 Chest Single View XRAY In Process Unspecified. EDMS Administered Medications: 02/13 23:37 Drug: Pepcid 20 mg Route: IVP; Site: left antecubital; aj1 02/14 00:45 Follow up: Response: No adverse reaction [facility] 02/13 23:37 Drug: Zofran 4 mg Route: IVP; Site: left antecubital; aj 02/14 00:45 Follow up: Response: No adverse reaction [facility] 02/13 23:37 Drug: Zosyn 3.375 grams Route: IVPB; Infused Over: 60 mins; Site: left antecubital; aj1 02/14 00:45 Follow up: IV Status: Completed infusion; IV Intake: 100ml aj 02/13 23:38 Drug: morphine 2 mg {Note: RASS score 0 patient is alert.} Route: IVP; Site: left aj1 antecubital; 02/14 00:45 Follow up: Response: No adverse reaction; Pain is decreased; RASS: Alert and Calm (0) aj1 02:37 Drug: Cipro 500 mg Route: PO; aj1 02:41 Follow up: Response: No adverse reaction aj Intake: 00:45 IV: 100ml; Total: 100ml. aj1 Outcome: 01:45 Discharge ordered by . juan diego 02:44 Discharged to home ambulatory. aj1 02:44 Condition: good 02:44 Discharge instructions given to patient, Instructed on discharge instructions, follow up and referral plans. medication usage, Demonstrated understanding of instructions, follow-up care, medications, Prescriptions given X 3. 02:45 Patient left the ED. aj1 Addendum: 02/17/2019 16:10 Addendum: Culture Results: Positive urine culture. No further action required. Bacteria s s sensitive to prescribed antibiotic. Signatures: Dispatcher [employer] EDSushma Sumner, RN RN Michael Cortes MD MD cha Smirch, Shelby, RN RN ss Davies, Jonathon, RN RN Fredo Blake cl3
--- NOTE | 2019-02-14 01:46 | EDPHYS ---
Physician Documentation [facility] Name: Geetha Khan Age: 43 yrs Sex: Female : 1975 Arrival Date: 02/13/2019 Time: 18:25 Bed 13 Private MD: ED Physician Michael Grimm HPI: 02/13 23:07 This 43 yrs old Female presents to ER via Ambulatory with complaints of juan diego Gallstones. 23:07 The patient presents with abdominal pain in the upper abdomen. Onset: The juan diego symptoms/episode began/occurred 2 day(s) ago. The symptoms do not radiate. Associated signs and symptoms: none. The symptoms are described as constant, crampy, dull. Modifying factors: The symptoms are alleviated by nothing, the symptoms are aggravated by alcohol. Severity of pain: At its worst the pain was moderate in the emergency department the pain is unchanged. The patient has experienced similar episodes in the past, several times. 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 - Social history:: Smoking status: Patient uses tobacco products, denies chronic smoking, but will smoke occasionally. - Ebola Screening: : Patient negative for fever greater than or equal to 101.5 degrees Fahrenheit, and additional compatible Ebola Virus Disease symptoms. - Family history:: not pertinent. ROS: 23:07 Constitutional: Negative for fever, chills, and weight loss, Eyes: Negative for injury, juan diego pain, redness, and discharge, ENT: Negative for injury, pain, and discharge, Neck: Negative for injury, pain, and swelling, Cardiovascular: Negative for chest pain, palpitations, and edema, Respiratory: Negative for shortness of breath, cough, wheezing, and pleuritic chest pain, Back: Negative for injury and pain, : Negative for injury, bleeding, discharge, and swelling, MS/Extremity: Negative for injury and deformity, Skin: Negative for injury, rash, and discoloration, Neuro: Negative for headache, weakness, numbness, tingling, and seizure, Psych: Negative for depression, anxiety, suicide ideation, homicidal ideation, and hallucinations, Allergy/Immunology: Negative for hives, rash, and allergies, Endocrine: Negative for neck swelling, polydipsia, polyuria, polyphagia, and marked weight changes, Hematologic/Lymphatic: Negative for swollen nodes, abnormal bleeding, and unusual bruising. 23:07 Abdomen/GI: Positive for abdominal pain, of the right upper quadrant. Exam: 23:07 Constitutional: This is a well developed, well nourished patient who is awake, alert, juan diego and in no acute distress. Head/Face: Normocephalic, atraumatic. Eyes: Pupils equal round and reactive to light, extra-ocular motions intact. Lids and lashes normal. Conjunctiva and sclera are non-icteric and not injected. Cornea within normal limits. Periorbital areas with no swelling, redness, or edema. ENT: Nares patent. No nasal discharge, no septal abnormalities noted. Tympanic membranes are normal and external auditory canals are clear. Oropharynx with no redness, swelling, or masses, exudates, or evidence of obstruction, uvula midline. Mucous membranes moist. Neck: Trachea midline, no thyromegaly or masses palpated, and no cervical lymphadenopathy. Supple, full range of motion without nuchal rigidity, or vertebral point tenderness. No Meningismus. Chest/axilla: Normal chest wall appearance and motion. Nontender with no deformity. No lesions are appreciated. Cardiovascular: Regular rate and rhythm with a normal S1 and S2. No gallops, murmurs, or rubs. Normal PMI, no JVD. No pulse deficits. Respiratory: Lungs have equal breath sounds bilaterally, clear to auscultation and percussion. No rales, rhonchi or wheezes noted. No increased work of breathing, no retractions or nasal flaring. Back: No spinal tenderness. No costovertebral tenderness. Full range of motion. Female : Normal external genitalia. Skin: Warm, dry with normal turgor. Normal color with no rashes, no lesions, and no evidence of cellulitis. MS/ Extremity: Pulses equal, no cyanosis. Neurovascular intact. Full, normal range of motion. Neuro: Awake and alert, GCS 15, oriented to person, place, time, and situation. Cranial nerves II-XII grossly intact. Motor strength 5/5 in all extremities. Sensory grossly intact. Cerebellar exam normal. Normal gait. Psych: Awake, alert, with orientation to person, place and time. Behavior, mood, and affect are within normal limits. 23:07 Abdomen/GI: Inspection: distension, Bowel sounds: normal, Palpation: mild abdominal tenderness, moderate abdominal tenderness, in the right upper quadrant, Liver: no appreciated palpable abnormalities, Hernia: not appreciated. Vital Signs: 19:29 BP 179 / 11; Pulse 101; Resp 16 S; Temp 98.0(O); Pulse Ox 100% on R/A; Weight 68.04 kg jd3 (R); Height 5 ft. 2 in. (157.48 cm) (R); Pain 10/10; 20:17 BP 166 / 105; Pulse 81; Resp 18; Pulse Ox 100% on R/A; Pain 10/10; aj1 21:10 BP 137 / 93; Pulse 78; Resp 16; Pulse Ox 100% on R/A; aj1 22:15 BP 161 / 103; Pulse 75; Resp 18; Pulse Ox 97% on R/A; aj1 23:15 BP 171 / 107; Pulse 73; Resp 18; Pulse Ox 100% on R/A; aj1 02/14 00:38 BP 165 / 102; Pulse 71; Resp 18; Pulse Ox 99% on R/A; aj1 01:30 BP 162 / 98; Pulse 75; Resp 18; Pulse Ox 97% on R/A; aj1 02:44 BP 162 / 101; Pulse 68; Resp 18; Pulse Ox 99% on R/A; aj1 02/13 19:29 Body Mass Index 27.44 (68.04 kg, 157.48 cm) jd3 MDM: 02/13 22:26 Patient medically screened. [facility] 22:26 Patient medically screened. [facility] 23:09 Data reviewed: vital signs, nurses notes, lab test result(s), EKG, radiologic studies, [facility] CT scan, plain films, ultrasound. 02/13 20:58 Order name: Basic Metabolic Panel [facility] 02/13 20:58 Order name: CBC with Diff [facility] 02/13 20:58 Order name: Creatinine for Radiology [facility] 02/13 20:58 Order name: Hepatic Function [facility] 02/13 20:58 Order name: Lipase [facility] 02/13 21:35 Order name: CBC with Automated Diff; Complete Time: 23:05 [facility] 02/13 21:52 Order name: Creatinine (Radiology Only); Complete Time: 23:05 [facility] 02/13 21:57 Order name: Basic Metabolic Panel; Complete Time: 23:05 [facility] 02/13 21:57 Order name: Liver (Hepatic) Function; Complete Time: 23:05 [facility] 02/13 21:57 Order name: Lipase; Complete Time: 23:05 [facility] 02/13 23:11 Order name: Troponin (emerg Dept Use Only) [facility] 02/14 00:21 Order name: Troponin (Emerg Dept Use Only) [facility] 02/14 01:27 Order name: Urine Culture [facility] 02/14 01:28 Order name: Tegretol Level [facility] 02/13 20:58 Order name: IV Saline Lock; Complete Time: 21:12 [facility] 02/13 20:58 Order name: Labs collected and sent; Complete Time: 21:12 [facility] 02/13 23:06 Order name: CT Abd/Pelvis - IV Contrast Only [facility] 02/13 23:11 Order name: Chest Single View XRAY [facility] 02/14 01:27 Order name: Urine Dipstick-Ancillary (obtain specimen); Complete Time: 01:45 [facility] 02/14 01:27 Order name: Urine Test (obtain specimen); Complete Time: 01:45 [facility] 02/14 01:47 Order name: Urine Dipstick--Ancillary (enter results) [facility] 02/14 01:47 Order name: Urine --Ancillary (enter results) [facility] Administered Medications: 23:37 Drug: Pepcid 20 mg Route: IVP; Site: left antecubital; [facility] 02/14 00:45 Follow up: Response: No adverse reaction [facility] 02/13 23:37 Drug: Zofran 4 mg Route: IVP; Site: left antecubital; [facility] 02/14 00:45 Follow up: Response: No adverse reaction [facility] 02/13 23:37 Drug: Zosyn 3.375 grams Route: IVPB; Infused Over: 60 mins; Site: left antecubital; aj1 02/14 00:45 Follow up: IV Status: Completed infusion; IV Intake: 100ml 02/13 23:38 Drug: morphine 2 mg {Note: RASS score 0 patient is alert.} Route: IVP; Site: left aj1 antecubital; 02/14 00:45 Follow up: Response: No adverse reaction; Pain is decreased; RASS: Alert and Calm (0) aj 02:37 Drug: Cipro 500 mg Route: PO; aj 02:41 Follow up: Response: No adverse reaction aj1 Disposition: 02/14/19 01:45 Discharged to Home. Impression: Urinary tract infection, site not specified, Cholelithiasis. - Condition is Stable. - Discharge Instructions: Dysuria, Urinary Tract Infection, Adult, Cholelithiasis, Cholelithiasis, [id number], Urinary Tract Infection, Adult, [id number]. - Prescriptions for Bentyl 20 mg Oral Tablet - take 1 tablet by ORAL route every 6 hours As needed; 20 tablet. Cipro 500 mg Oral Tablet - take 1 tablet by ORAL route every 12 hours for 7 days; 14 tablet. Pepcid 20 mg Oral Tablet - take 1 tablet by ORAL route every 12 hours for 10 days; 20 tablet. - Medication Reconciliation Form, Thank You Letter, Antibiotic Education, Prescription Opioid Use form. - Follow up: Private Physician; When: 2 - 3 days; Reason: Recheck today's complaints, Continuance of care, Re-evaluation by your physician. Follow up: Crow Kaiser MD; When: 2 - 3 days; Reason: Recheck today's complaints, Re-evaluation by your physician. - Problem is new. - Symptoms have improved. Signatures: Dispatcher [employer] Sushma Goodman RN RN aj1 Michael Grimm MD MD cha Davies, Jonathon RN RN jd3 Corrections: (The following items were deleted from the chart) 02:45 01:45 02/14/2019 01:45 Discharged to Home. Impression: Urinary tract infection, site aj1 not specified; Cholelithiasis. Condition is Stable. Forms are Medication Reconciliation Form, Thank You Letter, Antibiotic Education, Prescription Opioid Use. Follow up: Private Physician; When: 2 - 3 days; Reason: Recheck today's complaints, Continuance of care, Re-evaluation by your physician. Follow up: Crow Kaiser; When: 2 - 3 days; Reason: Recheck today's complaints, Re-evaluation by your physician. Problem is new. Symptoms have improved. juan diego
[2019-02-14] MEDS ORDERED: CIPROFLOXACIN HCL 500 MG TAB ONE (02:05)
[2019-02-14 02:45] LABS: Urine Blood TRACE (NEG); Urine Glucose NEGATIVE (NEG); Urine Protein NEGATIVE (NEG); Urine Specific Gravity 1.015 (1.005-1.030)
[2019-02-14 08:57] VITALS: TEMP 98
[2019-02-14 09:07] VITALS: BP 162/101; O2SAT 99
--- NOTE | 2019-02-14 09:10 | RAD REPORT ---
EXAM DESCRIPTION: [place] Single View02/13/2019 11:47 pm CLINICAL HISTORY: Abdominal pain COMPARISON: February 10, 2019 FINDINGS: The lungs appear clear of acute infiltrate. The heart is normal size IMPRESSION: No acute abnormalities displayed
--- NOTE | 2019-02-17 14:37 | RAD REPORT ---
EXAM DESCRIPTION: CT - Abdomen Pelvis W Contrast - 02/14/2019 4:47 am CLINICAL HISTORY: ABD PAIN COMPARISON: 02/10/2019 TECHNIQUE: CT of the abdomen and pelvis performed following IV administration of iodinated contrast FINDINGS: Lung Bases: The visualized lung bases are clear. Bones: No destructive bone lesions identified. Abdomen: Liver: The liver has normal size and density. Mild intra and extrahepatic biliary dilatation is stabl e. Gallbladder: Linear areas of increased density within the gallbladder likely representing cholelithia sis. No pericholecystic inflammatory change. Spleen, Pancreas, and Adrenal Glands: The spleen, pancreas, and adrenal glands are unremarkable. Kidneys: Cortical irregularity and atrophy of the right kidney. No hydronephrosis. Vasculature: The aorta and IVC have normal caliber and position. The portal vein is patent. The pro ximal visceral and renal arteries are patent. Stomach: The stomach and duodenum have normal course. Other: No free intraperitoneal air. No free fluid or lymphadenopathy. Pelvis: Bladder: Wall thickening of the urinary bladder. Bowel: No dilated loops of large or small bowel. Fatty infiltration of the colonic wall. Appendix: Normal appendix. Pelvis: Uterus is not enlarged. IMPRESSION: 1. Wall thickening of the urinary bladder. This could be seen with cystitis. 2. Cortical irregularities of the right kidney with atrophy may indicate previous infectious or infla mmatory insult. 3. Cholelithiasis without other CT evidence of acute cholecystitis. Mild extra and intrahepatic bilia ry dilatation is stable. 4. Fatty infiltration involving the wall of the colon. These findings could be seen with chronic infl ammatory colitis. This exam was performed according to our departmental dose-optimization program, which includes autom ated exposure control, adjustment of the mA and/or kV according to patient size and/or use of iterati ve reconstruction technique. Electronically signed by: Kirill Chairez 02/14/2019 12:44 AM DATA MANAGEMENT Due to temporary technical issues with the PACS/Fluency reporting system, reports are being signed by the in house radiologist as a courtesy to ensure prompt reporting. The interpreting radiologist is f ully responsible for the content of the report.
== END 2019-02-14 02:45 | disposition home or self-care (01) ==
LOC: ER 18:23
DX: K80.20 Calculus of gallbladder without cholecystitis without obstruction (principal); N39.0 Urinary tract infection, site not specified; I10 Essential (primary) hypertension; G40.909 Epilepsy, unspecified, not intractable, without status epilepticus; E07.9 Disorder of thyroid, unspecified; Z72.0 Tobacco use
CPT/HCPCS: 36415; 71045; 74177; 80048; 80076; 80156; 81003; 81025; 83690; 84484; 85025; 87077; 87086; 87088; 87186; 96365; 96375; 99284; J2270; J2405; J2543; Q9967

== ENCOUNTER 2019-02-15 07:57 | Emergency (ER) | payer SELFPAY ==
[2019-02-15 08:46] LABS: Absolute Lymphocytes (CBC) 2.4 K/uL (0.7-4.9); Basophils % 0.5 % (0-1.3); Hematocrit 30.1 % (36.0-45.0); Lymphocytes % 21.1 % (15.3-44.8); MPV 6.7 fL (7.6-11.3); RBC Red Blood Cell Count 3.96 M/uL (3.86-4.86)
[2019-02-15 08:49] LABS: Albumin 3.6 g/dL (3.4-5.0); Bilirubin Direct 0.1 mg/dL (0-0.2); Bilirubin Total 0.3 mg/dL (0.2-1.0); Potassium 3.2 mmol/L (3.5-5.1); Protein, Total 7.3 g/dL (6.4-8.2)
[2019-02-15] MEDS ORDERED: MORPHINE 4 MG/ML SYR ONE (09:29)
[2019-02-15] MEDS ORDERED: NA CHLORIDE 0.9% 1,000 ML ONE (09:30)
[2019-02-15] MEDS ORDERED: ONDANSETRON 4 MG/2 ML VIAL ONE (09:30)
[2019-02-15] MEDS ORDERED: PIPER/TAZO/NS 3.375gm 3.375 GM/100 ML BAG ONE (09:30)
--- NOTE | 2019-02-15 10:18 | ER ---
Nurse's Notes [facility] Name: Geetha Khan Age: 43 yrs Sex: Female : 1975 Arrival Date: 02/15/2019 Time: 07:59 Bed 19 Private MD: Diagnosis: Cholelithiasis;Cholecystitis Presentation: 02/15 08:07 Presenting complaint: RUQ pain x 1 week, pain has become worse and now radiates to hb right mid back. Transition of care: patient was not received from another setting of care. Onset of symptoms was February 09, 2019. Risk Assessment: Do you want to hurt yourself or someone else? Patient reports no desire to harm self or others. Initial Sepsis Screen: Does the patient meet any 2 criteria? No. Patient's initial sepsis screen is negative. Does the patient have a suspected source of infection? No. Patient's initial sepsis screen is negative. Care prior to arrival: None. 08:07 Method Of Arrival: Ambulatory 08:07 Acuity: CORRINA 3 hb Historical: - Allergies: 08:10 No Known Drug Allergies; hb - Home Meds: 08:09 albuterol sulfate 90 mcg/actuation Inhl HFAA 2 puffs every 4 hours [Active]; Epitol 200 hb mg Oral tab 1 tab daily [Active]; lisinopril 20 mg Oral tab 1 tab twice daily [Active]; metoprolol tartrate 50 mg Oral tab 1 tab once daily [Active]; - PMHx: 08:09 Asthma; COPD; Hypertension; Seizures; Thyroid problem; hb - PSHx: 08:09 Tonsillectomy; hb - Immunization history:: Adult Immunizations up to date. - Social history:: Smoking status: Patient uses tobacco products, smokes one-half pack cigarettes per day. - Ebola Screening: : No symptoms or risks identified at this time. Screenin:19 Abuse screen: Denies threats or abuse. Nutritional screening: No deficits noted. em Tuberculosis screening: No symptoms or risk factors identified. Fall Risk None identified. Assessment: 08:21 General: Appears in no apparent distress. comfortable, Behavior is calm, cooperative, em Reports chills for 2-3 days. Pain: Complains of pain in right upper quadrant Pain currently is 10 out of 10 on a pain scale. Neuro: Level of Consciousness is awake, alert, obeys commands, Oriented to person, place, time, situation, Appropriate for age. Cardiovascular: Capillary refill < 3 seconds Patient's skin is warm and dry. Respiratory: Airway is patent Respiratory effort is even, unlabored, Respiratory pattern is regular, symmetrical. GI: Abdomen is flat, Bowel sounds present X 4 quads. Abd is soft X 4 quads Abdomen is tender to palpation in right upper quadrant. Derm: Skin is intact, is healthy with good turgor, Skin is pink, warm \T\ dry. Musculoskeletal: Capillary refill < 3 seconds, Range of motion: intact in all extremities. 08:32 Reassessment: I agree with previous assessment. hb 09:30 Reassessment: Patient appears in no apparent distress at this time. Patient and/or em family updated on plan of care and expected duration. Pain level reassessed. Patient is alert, oriented x 3, equal unlabored respirations, skin warm/dry/pink. 10:30 Reassessment: Patient appears in no apparent distress at this time. Patient and/or em family updated on plan of care and expected duration. Pain level reassessed. Patient is alert, oriented x 3, equal unlabored respirations, skin warm/dry/pink. Patient denies pain at this time. Patient states feeling better. 10:49 Reassessment: receiving nurse unavailable to receive report at this time. em 11:12 Reassessment: report given to YANETH Zhou at [facility], pending EMS em transportation. 11:51 Reassessment: Patient appears in no apparent distress at this time. Patient and/or em family updated on plan of care and expected duration. Pain level reassessed. Patient is alert, oriented x 3, equal unlabored respirations, skin warm/dry/pink. report given to EMS Patient denies pain at this time. Vital Signs: 08:09 BP 163 / 117; Pulse 79; Resp 16; Temp 98.7(O); Pulse Ox 100% on R/A; Weight 68.04 kg; hb Height 5 ft. 2 in. (157.48 cm); Pain 10/10; 08:20 BP 150 / 96; Pulse 70; Resp 18; Pulse Ox 100% on R/A; Pain 10/10; em 09:30 BP 159 / 92; Pulse 66; Resp 18; Pulse Ox 99% on R/A; Pain 10/10; em 10:30 BP 161 / 96; Pulse 80; Resp 18; Temp 98.0(O); Pulse Ox 99% on R/A; Pain 0/10; em 08:09 Body Mass Index 27.44 (68.04 kg, 157.48 cm) hb ED Course: 07:59 Patient arrived in ED. as 08:03 Kathy Kerns [facility]C [facility] kb 08:03 Tommie Gomez MD is Attending Physician. kb 08:03 Michael Rivera LVN is Primary Nurse. em 08:08 Triage completed. hb 08:09 Arm band placed on. hb 08:15 Initial lab(s) drawn, by me, sent to lab. Inserted saline lock: 22 gauge in left em antecubital area, using aseptic technique. Blood collected. 08:19 Patient has correct armband on for positive identification. Bed in low position. Call em light in reach. Adult w/ patient. Pulse ox on. NIBP on. 08:53 US Abdomen Limited In Process Unspecified. EDMS 09:14 initiated a transfer with Hermila from the [facility] transfer [place]. eb 10:[address] Nelson the hospitalist catering convention services manager for [facility] with Kathy DYER for patient transfer consultation. 10:30 administrative approval given by Arianne Tejeda/ patient has been accepted to [facility] 2105 Bed 1 / Dr. Nelson has accepted the patient in transfer/ report to be called to [phone]. 11:21 No provider procedures requiring assistance completed. Patient transferred, IV remains em in place. Administered Medications: 09:36 Drug: Zofran 4 mg Route: IVP; Site: left antecubital; hb 10:09 Follow up: Response: No adverse reaction em 09:38 Drug: Zosyn 3.375 grams Route: IVPB; Infused Over: 60 mins; Site: left antecubital; em 11:00 Follow up: Response: No adverse reaction; IV Status: Completed infusion; IV Intake: em 100ml 09:38 Drug: NS 0.9% 1000 ml Route: IV; Rate: 125 ml/hr; Site: left antecubital; em 11:54 Follow up: IV Status: Infusion continued upon transfer; IV Intake: 300ml em 09:38 Drug: morphine 4 mg Route: IVP; Site: left antecubital; hb 10:09 Follow up: Response: No adverse reaction; Pain is decreased em Intake: 11:00 IV: 100ml; Total: 100ml. em 11:54 IV: 300ml; Total: 400ml. em Outcome: 10:17 ER care complete, transfer ordered by MD. lozano 11:53 Transferred by ground EMS to [facility], Transfer form completed. em X-rays sent w/ patient. 11:53 Condition: good 11:53 Instructed on the need for transfer, Demonstrated understanding of instructions. 11:56 Patient left the ED. em Signatures: Dispatcher [employer] Kathy Hines, VACATION PLANNER-C VACATION PLANNER-Michael Nino, FERTILIZER LOADER FERTILIZER LOADER Starla Olvera Heather, YANETH RN Sharona Aguirre
--- NOTE | 2019-02-15 10:19 | EDPHYS ---
Physician Documentation [facility] Name: Geetha Khan Age: 43 yrs Sex: Female : 1975 Arrival Date: 02/15/2019 Time: 07:59 Bed 19 Private MD: ED Physician Tommie Gomez HPI: 02/15 08:20 This 43 yrs old Female presents to ER via Ambulatory with complaints of kb Abdominal Pain. 08:20 The patient presents with abdominal pain in the right upper quadrant. Onset: The kb symptoms/episode began/occurred 1 week(s) ago. The symptoms do not radiate. Associated signs and symptoms: none. The symptoms are described as constant. Modifying factors: The symptoms are alleviated by nothing, the symptoms are aggravated by nothing. Severity of pain: At its worst the pain was moderate in the emergency department the pain is unchanged. The patient has not experienced similar symptoms in the past. The patient has not recently seen a physician. Pt reports she was diagnosed with gallstones this week and the pain is still there. . Historical: - Allergies: 08:10 No Known Drug Allergies; hb - Home Meds: 08:09 albuterol sulfate 90 mcg/actuation Inhl HFAA 2 puffs every 4 hours [Active]; Epitol 200 hb mg Oral tab 1 tab daily [Active]; lisinopril 20 mg Oral tab 1 tab twice daily [Active]; metoprolol tartrate 50 mg Oral tab 1 tab once daily [Active]; - PMHx: 08:09 Asthma; COPD; Hypertension; Seizures; Thyroid problem; hb - PSHx: 08:09 Tonsillectomy; hb - Immunization history:: Adult Immunizations up to date. - Social history:: Smoking status: Patient uses tobacco products, smokes one-half pack cigarettes per day. - Ebola Screening: : No symptoms or risks identified at this time. ROS: 08:20 Constitutional: Negative for fever, chills, and weight loss, Neck: Negative for injury, kb pain, and swelling, Cardiovascular: Negative for chest pain, palpitations, and edema, Respiratory: Negative for shortness of breath, cough, wheezing, and pleuritic chest pain, Back: Negative for injury and pain, : Negative for injury, bleeding, discharge, and swelling, MS/Extremity: Negative for injury and deformity, Skin: Negative for injury, rash, and discoloration, Neuro: Negative for headache, weakness, numbness, tingling, and seizure. 08:20 Abdomen/GI: Positive for abdominal pain, Negative for nausea, vomiting, and diarrhea, constipation. Exam: 08:20 Constitutional: This is a well developed, well nourished patient who is awake, alert, kb and in no acute distress. Head/Face: Normocephalic, atraumatic. ENT: Nares patent. No nasal discharge, no septal abnormalities noted. Tympanic membranes are normal and external auditory canals are clear. Oropharynx with no redness, swelling, or masses, exudates, or evidence of obstruction, uvula midline. Mucous membranes moist. Neck: Trachea midline, no thyromegaly or masses palpated, and no cervical lymphadenopathy. Supple, full range of motion without nuchal rigidity, or vertebral point tenderness. No Meningismus. Chest/axilla: Normal chest wall appearance and motion. Nontender with no deformity. No lesions are appreciated. Cardiovascular: Regular rate and rhythm with a normal S1 and S2. No gallops, murmurs, or rubs. Normal PMI, no JVD. No pulse deficits. Back: No spinal tenderness. No costovertebral tenderness. Full range of motion. Skin: Warm, dry with normal turgor. Normal color with no rashes, no lesions, and no evidence of cellulitis. MS/ Extremity: Pulses equal, no cyanosis. Neurovascular intact. Full, normal range of motion. Neuro: Awake and alert, GCS 15, oriented to person, place, time, and situation. Cranial nerves II-XII grossly intact. Motor strength 5/5 in all extremities. Sensory grossly intact. Cerebellar exam normal. Normal gait. 08:20 Respiratory: the patient does not display signs of respiratory distress, Respirations: normal, Breath sounds: wheezing: expiratory that is mild, is scattered. 08:20 Abdomen/GI: Inspection: abdomen appears normal, Bowel sounds: normal, in all quadrants, Palpation: soft, in all quadrants, mild abdominal tenderness, in the right lower quadrant, moderate abdominal tenderness, in the right upper quadrant. Vital Signs: 08:09 BP 163 / 117; Pulse 79; Resp 16; Temp 98.7(O); Pulse Ox 100% on R/A; Weight 68.04 kg; hb Height 5 ft. 2 in. (157.48 cm); Pain 10/10; 08:20 BP 150 / 96; Pulse 70; Resp 18; Pulse Ox 100% on R/A; Pain 10/10; em 09:30 BP 159 / 92; Pulse 66; Resp 18; Pulse Ox 99% on R/A; Pain 10/10; em 10:30 BP 161 / 96; Pulse 80; Resp 18; Temp 98.0(O); Pulse Ox 99% on R/A; Pain 0/10; em 08:09 Body Mass Index 27.44 (68.04 kg, 157.48 cm) hb MDM: 08:03 Patient medically screened. kb 08:07 Data reviewed: vital signs, nurses notes. kb 08:22 Data interpreted: Pulse oximetry: on room air is 100 %. Interpretation: normal. kb 09:18 Counseling: I had a detailed discussion with the patient and/or guardian regarding: the historical points, exam findings, and any diagnostic results supporting the discharge/admit diagnosis, lab results, radiology results, the need to transfer to another facility, [facility] does not immediately have the required specialist. Physician consultation: Richard Bustillos MD was called at 09:18, regarding admission, patient's condition, after a discussion of the case, a recommendation for transfer for higher level of care is made. 09:18 ED course: Transfer initiated to [facility] due to lack of GI service. kb 10:16 ED course: Pt accepted by Dr Nelson, hospitalist at [facility]. kb 12 08:06 Order name: Basic Metabolic Panel; Complete Time: 08:50 kb 02/15 08:06 Order name: CBC with Diff; Complete Time: 08:54 kb 02/15 08:06 Order name: Hepatic Function; Complete Time: 08:50 kb 02/15 08:06 Order name: Lipase; Complete Time: 08:50 kb 02/15 08:06 Order name: US Abdomen Limited kb 02/15 08:06 Order name: IV Saline Lock; Complete Time: 08:23 kb 02/15 08:06 Order name: Labs collected and sent; Complete Time: 08:23 kb Administered Medications: 09:36 Drug: Zofran 4 mg Route: IVP; Site: left antecubital; hb 10:09 Follow up: Response: No adverse reaction em 09:38 Drug: Zosyn 3.375 grams Route: IVPB; Infused Over: 60 mins; Site: left antecubital; em 11:00 Follow up: Response: No adverse reaction; IV Status: Completed infusion; IV Intake: em 100ml 09:38 Drug: NS 0.9% 1000 ml Route: IV; Rate: 125 ml/hr; Site: left antecubital; em 11:54 Follow up: IV Status: Infusion continued upon transfer; IV Intake: 300ml em 09:38 Drug: morphine 4 mg Route: IVP; Site: left antecubital; hb 10:09 Follow up: Response: No adverse reaction; Pain is decreased em Disposition: 17:43 Co-signature as Attending Physician, Tommie Gomez MD Did not see or evaluate the ps1 patient. Signing the chart for administrative purposes. Not an endorsement of care provided. . Disposition: 02/15/19 10:17 Transfer ordered to [facility]. Diagnosis are Cholelithiasis, Cholecystitis. - Reason for transfer: Higher level of care. - Accepting physician is Dr Nelson. - Condition is Stable. - Problem is new. - Symptoms are unchanged. Signatures: Dispatcher [employer] EDMT Kathy Kerns, OPERATIONAL ASSISTANT-C OPERATIONAL ASSISTANT-Ckb Michael Rivera, EXPORT SALES ASSISTANT EXPORT SALES ASSISTANT em Kristin Barrera, YANETH RN Tommie Peoples MD MD ps1 Corrections: (The following items were deleted from the chart) 11:56 10:17 02/15/2019 10:17 Transfer ordered to [facility]. Diagnosis is em Cholelithiasis; Cholecystitis. Reason for transfer: Higher level of care. Accepting physician is Dr Nelson. Condition is Stable. Problem is new. Symptoms are unchanged. kb
[2019-02-15 12:08] VITALS: O2SAT 99
[2019-02-15 12:09] VITALS: BP 161/96; TEMP 98
--- NOTE | 2019-02-15 12:35 | RAD REPORT ---
EXAM DESCRIPTION: US - Abdomen Exam Limited - 02/15/2019 8:53 am CLINICAL HISTORY: ABD PAIN COMPARISON: Abdomen Exam Limited dated 08/10/2015; Abdomen Pelvis W Contrast dated 02/13/2019; Abdo men Pelvis W Contrast dated 02/10/2019 FINDINGS: The gallbladder demonstrates shadowing cholelithiasis. Blood flow is seen within the echog enic structure adjacent to the stones as well. No pericholecystic fluid or gallbladder wall thickenin g. The common bile duct is dilated measuring 7-8 mm. The liver demonstrates no findings of intrahepatic biliary dilatation. IMPRESSION: Cholelithiasis is noted with mild enlargement of the common bile duct to 7-8 mm. Choledo cholithiasis is a possibility. In addition there is echogenic structure in the bladder adjacent to the stones measuring 14-15 mm dem onstrating internal blood flow, this may represent a large gallbladder polyp.
== END 2019-02-15 11:56 | disposition short-term general hospital (02) ==
LOC: ER 07:57
DX: K80.20 Calculus of gallbladder without cholecystitis without obstruction (principal); K80.40 Calculus of bile duct with cholecystitis, unspecified, without obstruction; J45.909 Unspecified asthma, uncomplicated; J44.9 Chronic obstructive pulmonary disease, unspecified; I10 Essential (primary) hypertension; F17.210 Nicotine dependence, cigarettes, uncomplicated
CPT/HCPCS: 36415; 76705; 80048; 80076; 83690; 85025; 96361; 96365; 96375; 99285; J2405; J2543; J7030

== ENCOUNTER 2020-02-09 13:50 | Emergency (ER) | payer SELFPAY ==
--- OUTSIDE RECORDS SUMMARY | 2020-02-09 13:52 | XMS REPORT | Clinical Summary ---
:1975 Author Organization [facility] Address [address] [place] [address] Care Team Providers Name Role Phone Pcp Primary Care Provider Unavailable Allergies Active Allergy Reactions Severity Noted Date Comments Cranberry Itching Low 02/15/2019 Fish Containing Products Swelling High 02/15/2019 Medications Medication Sig Dispensed Refills Start Date End Date Status famotidine (PEPCID) Take 1 tablet by 0 02/14/2019 Active 20 MG tablet mouth every 12 (twelve) hours. divalproex (DEPAKOTE) Take 125 mg by 0 Active 125 MG EC mouth daily. tabletIndications: epilepsy amLODIPine (NORVASC) Take 1 tablet (5 30 tablet 2 02/18/2019 0 05/19/2019 5 MG tablet mg total) by mouth daily for 90 days. amoxicillin-clavulana Take 1 tablet by 10 tablet 0 02/18/2019 02/23/2019 te (AUGMENTIN) mouth every 12 875-125 mg per tablet (twelve) hours for 5 days. Active Problems Problem Noted Date Acute cholecystitis 02/17/2019 Calculus of gallbladder without cholecystitis without obstruction 02/16/2019 Transaminitis 02/16/2019 Hypertension 02/16/2019 Seizure disorder 02/16/2019 Anemia 02/16/2019 Thrombocytosis 02/16/2019 Resolved Problems Problem Noted Date Resolved Date Acute cholecystitis 02/15/2019 02/16/2019 Encounters Date Type Specialty Care Team Description 02/17/2019 Surgery Trudy James LAPAROSCOPY, AURELIA Gary MD ECTOMY 02/17/2019 Anesthesia Event Nurys Vincent DO Narayan, Rakesh, MD 02/15/2019 - Hospital Encounter General Internal Zindani, Acute cholecystitis (Primary Dx); 02/18/2019 Medicine MD Shelby Calculus of gallbladder without cholecys titis without obstruction Shiekh SrMadelin panda MD 02/15/2019 Travel 02/15/2019 Documentation Internal Medicine Shelby Nelson MD after 02/08/2019 Social History Tobacco Use Types Packs/Day Years Used Date Current Some Day Smoker Cigarettes 0.25 27 Star markie: 02/16/1992 Smokeless Tobacco: Never Used Tobacco Cessation: Ready to Quit: Yes; C ounseling Given: Yes Alcohol Use Drinks/Week oz/Week Comments No Alcohol Habits Answer Date Recorded How often do you have a drink containing alcohol? Never 02/15/2019 How many drinks containing alcohol do you have on a typical Not asked day when you are drinking? How often do you have six or more drinks on one occasion? Ne mary 02/15/2019 Sex Assigned at Date Recorded Not on file Last Filed Vital Signs Vital Sign Reading Time Taken Comments Blood Pressure 178/95 02/18/2019 7:00 AM ASTROCHEMIST Pulse 77 02/18/2019 7:00 AM ASTROCHEMIST Temperature 35.8 C (96.5 F) 02/18/2019 7:00 AM ASTROCHEMIST Respiratory Rate 18 02/18/2019 7:00 AM ASTROCHEMIST Oxygen Saturation 98% 02/18/2019 7:00 AM ASTROCHEMIST Inhaled Oxygen Concentration - - Weight 78.7 kg (173 lb 6.4 oz) 02/15/2019 1:21 PM ASTROCHEMIST Height 157.5 cm (5' 2") 02/15/2019 1:21 PM ASTROCHEMIST Body Mass Index 31.72 02/15/2019 1:21 PM ASTROCHEMIST Plan of Treatment Health Maintenance Due Date Last Done Comments PNEUMOCOCCAL VACCINE 0-64 YRS (1 of 1 - PPSV23) 1982 LIPID PANEL 1996 CERVICAL CANCER SCREENING PAP ONLY (Age 21-65) 1997 INFLUENZA VACCINE (#1) 2019 Procedures Procedure Name Priority Date/Time Associated Diagnosis Comme nts CBC W/PLT COUNT & Routine 02/18/2019 6:28 Result s for this AUTO DIFFERENTIAL AM ASTROCHEMIST procedure are in the results section. CBC W/PLT COUNT & Routine 02/18/2019 6:28 Result s for this AUTO DIFFERENTIAL AM ASTROCHEMIST procedure are in the results section. BASIC METABOLIC Routine 02/18/2019 6:28 Results for this PANEL (7) AM ASTROCHEMIST procedure are i n the results section. HEPATIC FUNCTION Routine 02/18/2019 6:28 Results for this PANEL AM ASTROCHEMIST procedure are i n the results section. TRANSFUSION SERVICE 02/17/2019 5:51 REPORT - SCAN PM ASTROCHEMIST TISSUE EXAM AP Routine 02/17/2019 11:26 Results for this AM ASTROCHEMIST procedure are i n the results section. LAPAROSCOPY,CHOLECYS 02/17/2019 8:43 Acute cholecysti tis TECTOMY AM ASTROCHEMIST Special Needs (REQ TO START 7:30) CBC W/PLT COUNT & AUTO Routine 02/17/2019 6:05 AM ASTROCHEMIST Results for this DIFFERENTIAL procedure are i n the results section . CBC W/PLT COUNT & AUTO Routine 02/17/2019 6:05 AM ASTROCHEMIST Results for this DIFFERENTIAL procedure are i n the results section . BASIC METABOLIC PANEL (7) Routine 02/17/2019 6:05 AM ASTROCHEMIST Results for this procedure are i n the results section . HEPATIC FUNCTION PANEL Routine 02/17/2019 6:05 AM ASTROCHEMIST Results for this procedure are i n the results section . ABORH, MANUAL STAT 02/16/2019 8:33 AM ASTROCHEMIST Res ults for this procedure are i n the results section . SCREEN, URINE Routine 02/16/2019 6:53 AM ASTROCHEMIST Results for this procedure are i n the results section . CBC W/PLT COUNT & AUTO STAT 02/16/2019 6:51 AM ASTROCHEMIST Results for this DIFFERENTIAL procedure are i n the results section . TYPE AND SCREEN, AUTOMATED STAT 02/16/2019 6:51 AM ASTROCHEMIST Results for this procedure are i n the results section . LIPASE STAT 02/16/2019 6:51 AM ASTROCHEMIST Resu lts for this procedure are i n the results section . PHOSPHORUS STAT 02/16/2019 6:51 AM ASTROCHEMIST Resu lts for this procedure are i n the results section . MAGNESIUM STAT 02/16/2019 6:51 AM ASTROCHEMIST Resu lts for this procedure are i n the results section . CBC W/PLT COUNT & AUTO STAT 02/16/2019 6:51 AM ASTROCHEMIST Results for this DIFFERENTIAL procedure are i n the results section . BASIC METABOLIC PANEL (7) STAT 02/16/2019 6:51 AM ASTROCHEMIST Results for this procedure are i n the results section . HEPATIC FUNCTION PANEL STAT 02/16/2019 6:51 AM ASTROCHEMIST Results for this procedure are i n the results section . URINALYSIS W/ REFLEX URINE Routine 02/15/2019 10:16 PM ASTROCHEMIST Results for this CULTURE procedure are i n the results section . CBC W/PLT COUNT & AUTO Routine 02/15/2019 3:04 PM ASTROCHEMIST Results for this DIFFERENTIAL procedure are i n the results section . GAMMA GLUTAMYL TRANSFERASE Routine 02/15/2019 3:04 PM ASTROCHEMIST Results for this (GGT) procedure are i n the results section . MAGNESIUM Routine 02/15/2019 3:04 PM ASTROCHEMIST Resu lts for this procedure are i n the results section . APTT Routine 02/15/2019 3:04 PM ASTROCHEMIST Resu lts for this procedure are i n the results section . PROTHROMBIN TIME/INR Routine 02/15/2019 3:04 PM ASTROCHEMIST Results for this procedure are i n the results section . HEPATIC FUNCTION PANEL Routine 02/15/2019 3:04 PM ASTROCHEMIST Results for this procedure are i n the results section . BASIC METABOLIC PANEL (7) Routine 02/15/2019 3:04 PM ASTROCHEMIST Results for this procedure are i n the results section . CBC W/PLT COUNT & AUTO Routine 02/15/2019 3:04 PM ASTROCHEMIST Results for this DIFFERENTIAL procedure are i n the results section . US ABDOMEN LIMITED STAT 02/15/2019 11:37 AM ASTROCHEMIST Results for this procedure are i n the results section . after 02/08/2019 Results CBC with platelet count + automated diff (02/18/2019 6:28 AM ASTROCHEMIST)Only the most recent of4 resultswithin the time period is included. Pathologist Sig nature WBC 16.1 (H) 3.5 - 10.5 [facility] K/L [facility] RBC 3.61 (L) 3.93 - 5.22 [facility] M/L [facility] Hemoglobin 8.8 (L) 11.2 - 15.7 [facility] GM/DL [facility] Hematocrit 28.9 (L) 34.1 - 44.9 % [facility] MCV 80.1 79.4 - 94.8 fL [facility] MCH 24.4 (L) 25.6 - 32.2 pg [facility] MCHC 30.4 (L) 32.2 - 35.5 [facility] GM/DL [facility] RDW 18.8 (H) 11.7 - 14.4 % [facility] Platelets 418 150 - 450 K/CU [facility] MPV 8.6 (L) 9.4 - 12.3 fL [facility] nRBC 0 0 - 0 /100 WBC [facility] % Neutros 87 % [facility] % Lymphs 7 % [facility] % Monos 5 % [facility] % Eos 0 % [facility] % Baso 0 % [facility] # Neutros 14.05 (H) 1.56 - 6.13 [facility] # Lymphs 1.11 (L) 1.18 - 3.74 [facility] # Monos 0.86 (H) 0.24 - 0.36 [facility] # Eos 0.00 (L) 0.04 - 0.36 [facility] # Baso 0.02 0.01 - 0.08 [facility] Immature 1 0 - 1 % [facility] Granulocytes-Relativ [facility] Specimen Blood Performing Organization Address City/State/Zipcode Phone Number [facility] [address] [place] [address] CENTER Hepatic function panel (02/18/2019 6:28 AM ASTROCHEMIST)Only the most recent of4 results within the time period is included. Protein, Total 6.9Comment: 6.0 - 8.3 [facility] Specimen slightly gm/dL [facility] Albumin 3.8Comment: 3.5 - 5.0 [facility] Specimen slightly g/dL [facility] Total Bilirubin 0.3Comment: 0.2 - 1.2 [facility] Specimen slightly mg/dL [facility] Bilirubin, Direct 0.1Comment: 0.1 - 0.5 [facility] Specimen slightly mg/dL [facility] Alkaline 215 (H) 40 - 150 U/L [facility] Phosphatase [facility] AST 60 (H)Comment: 5 - 34 U/L [facility] Specimen slightly [facility] ALT 85 (H)Comment: 6 - 55 U/L [facility] Specimen [facility] Specimen Blood Performing Organization Address City/[facility] Cent[facility]ode Phone Number [facility] [address] [place] [address] [place] Basic Metabolic Panel (02/18/2019 6:28 AM ASTROCHEMIST)Only the most recent of4 results within the time period is included. Sodium 137 136 - 145 meq/L [facility] Potassium 4.2Comment: Specimen 3.5 - 5.1 meq/L [facility] Chloride 104 98 - 107 meq/L [facility] CO2 25 22 - 29 meq/L [facility] BUN 7 7 - 21 mg/dL [facility] Creatinine 1.05Comment: 0.57 - 1.25 [facility] Specimen slightly mg/dL [facility] Glucose 93 70 - 105 mg/dL [facility] Calcium 9.0 8.4 - 10.2 [facility] mg/dL [facility] EGFR 57Comment: ESTIMATED mL/min/1.[address] [facility] GFR IS NOT m [facility] [place] CREATININE CLEARANCE IN PREDICTING GLOMERULAR FILTRATION RATE. ESTIMATED GFR IS NOT APPLICABLE FOR DIALYSIS PATIENTS. Specimen Blood Performing Organization Address City/[facility]/Zipcode Phone Number [facility] [address] [place] [address] [place] TRANSFUSION SERVICE REPORT - SCAN (02/17/2019 5:51 PM ASTROCHEMIST) Narrative Performed At This result has an attachment that is no t available. Tissue Exam (02/17/2019 11:26 AM ASTROCHEMIST) Case Report Surgical Pathology Report Case: [id number] [facility] Authorizing Provider: Trudy Bianchi i, MD Collected: 02/17/2019 [facility] Ordering Location: [address] Received: 02/17/2019 [facility] Service Pathologist: Angela Beach MD Specimen: Gallbladder DIAGNOSIS [facility] Electronically A. GALLBLADDER, CHOLECYSTECTOMY: [facility] signed by Baylee, - CHRONIC CHOLECYSTITIS WITH CHOLELITHIASIS. [facility] MD Angela on 02/19/2019 at 12 :09 Signing Pathologist Direct Phone Line: PM CPT Code(s) 03089 [facility] CLINICAL HISTORY Left renal mass [facility] SPECIMEN SOURCE Gallbladder [facility] GROSS DESCRIPTION Received in formalin [facility] labeled with the [facility] patient's name, [facility] accession number and "gallbladder" is a 5.0 x 2.4 x 2.0 cm intact gallbladder with a 1.5 cm linear staple line. A cystic duct is not grossly appreciated. The serosa is yellow-green, smooth and hyperemic. The specimen is opened to reveal approximately 2 mL of green turbid bile and a 2.5 x 2.0 x 1.4 cm aggregate of green multifaceted calculi. The mucosa is paiz-green and trabeculated. The wall measures 0.2 cm thick. Insole And Outsole Splitter sections are submitted in A1-A2, with the inked proximal margin is A1. PA/ew MICROSCOPIC Performed. [facility] DESCRIPTION [facility] Gross assessment [facility] was performed at [facility] Department of [facility] Pathology, [address] [place] [address], [place] [address], Technical component [facility] was performed at [facility] Department of [facility] Pathology[facility] [address] [place] [address], [place] [address], Professional [facility] component [facility] performed at Department of MEDICAL CENTER Pathology, [address] [place] [id number], Specimen Tissue - Gallbladder structure (body str ucture) Performing Organization Address [facility] Centercode Phone Number [address] [phone] CENTER ABORH, manual (02/16/2019 8:33 AM ASTROCHEMIST) Pathologist Sig nature ABO Grouping O [facility] Rh Factor POS [facility] Specimen Blood Performing Organization Address [facility] Centercode Phone Number [address] [address] Screen, urine (02/16/2019 6:53 AM ASTROCHEMIST) Pathologist Sig nature Preg Test, Ur Negative [facility] Specimen Urine Performing Organization Address [facility]co[facility] Number [address] [address] CENTER Type and screen, automated (02/16/2019 6:51 AM ASTROCHEMIST) Pathologist Sig nature ABO/RH AUTOMATED O POSITIVE [facility] Ab Scrn NEGATIVE [facility] Specimen Blood Performing Organization Address [facility] Phone Number [address] [address] Phosphorus (02/16/2019 6:51 AM ASTROCHEMIST) Phosphorus 4.0Comment: Specimen 2.3 - 4.7 mg/dL [facility] moderately hemolyzed [facility] Specimen Blood Performing Organization Address [facility] Centercoma Phone Number [address] [address] CENTER Magnesium (02/16/2019 6:51 AM ASTROCHEMIST)Only the most recent of2 resultswithin the time period is included. Pathologist Sig nature Magnesium 2.0Comment: Specimen 1.6 - 2.6 mg/dL [facility] moderately hemolyzed [facility] Specimen Blood Performing Organization Address City/[facility]/Zipcode Phone Number [facility] [address] [place] [address] CENTER Lipase (02/16/2019 6:51 AM ASTROCHEMIST) Pathologist Sig nature Lipase 31 8 - 78 U/L [facility] Specimen Blood Performing Organization Address City/[facility]/Zipcode Phone Number [facility] [address] [place] [address] CENTER Urinalysis w/Microscopic + Reflex to Culture (02/15/2019 10:16 PM ASTROCHEMIST) Color, UA Light Yellow [facility] Clarity, UA Clear [facility] Specific [place], 1.003 1.001 - 1.035 [facility] pH, UA 7.0 5.0 - 8.0 [facility] Protein, UA Negative Negative [facility] Glucose, UA 500 mg/dL (A) Negative [facility] Ketones, UA Negative Negative [facility] Bilirubin, UA Negative Negative [facility] Blood, UA Negative Negative [facility] Nitrite, UA Negative Negative [facility] Leukocytes, UA Negative Negative [facility] Urobilinogen, UA 0.2 0.2 - 1.0 mg/dL [facility] RBC, UA 0 /HPF [facility] WBC, UA 1 /HPF [facility] Bacteria, UA Rare [facility] Squam Epithel, UA 1 /HPF [facility] Specimen Source [facility] Specimen Urine - Urine specimen collection, clean catch (procedure) Performing Organization Address [facility] Centercode Phone Number [address] [address] [place] aPTT (02/15/2019 3:04 PM ASTROCHEMIST) Pathologist Sig nature PTT 31.4 22.5 - 36.0 seconds [facility] Specimen Blood Performing Organization Address [facility] Center[facility] Phone Number [address] [address] [place] Prothrombin time/INR (02/15/2019 3:04 PM ASTROCHEMIST) Pathologist Sig nature Protime 13.4 11.9 - 14.2 seconds [facility] INR 1.1 <=5.9 [facility] Specimen Blood Narrative Performed At Effective 08/13/2018: PT Reference Range [facility] Change New: 11.9-14.2 Previous: 11.7-14.7 RECOMMENDED COUMADIN/WARFARIN INR THERAPY RANGES STANDARD DOSE: 2.0-3.0 Includes: PROPHYLAXIS for venous thrombosis, systemic embolization; TREATMENT for venous thrombosis and/or pulmonary embolus. HIGH RISK: Target INR is 2.5-3.5 for patients wiht mechanical heart valves. Performing Organization Address [facility] Phone Number [address] [address] [place] Gamma Glutamyl Transferase (GGT) (02/15/2019 3:04 PM ASTROCHEMIST) Pathologist Sig nature GGT 149 (H)Comment: 9 - 64 U/L [facility] hemolyzed Specimen Blood Performing Organization Address [facility] Center[facility] Phone Number [address] [address] [place] US abdomen limited (02/15/2019 11:37 AM ASTROCHEMIST) Specimen Narrative Performed At FINAL REPORT GE [facility] U/S, ABDOMINAL, LIMITED CLINICAL HISTORY: eval cholecystitis, ch oledocholithiasis Comparison: None Technique: Real-time transabdominal ul trasound of the right upper quadrant abdomen was performed. Liver: 14.8 cm, No acute findings.. Gallbladder: Cholelithiasis present.. No gallbladder wall thickening. No pericholecystic fluid.. No sonographi c Torres's sign. Biliary tree: No intrahepatic ductal dil atation. CBD: 3 mm. Pancreas: Not well-seen. Right kidney: No acute findings.. No ascites is present in the abdomen. The visualized abdominal aorta is normal in caliber. The IVC and Hepatic veins are patent. Impression: Cholelithiasis without sonographic evide nce of acute cholecystitis. No extrahepatic ductal dilatation or vis ualized choledocholithiasis. . Signed: Latasha Olvera MD Report Verified Date/Time: 02/15/2019 23:50:53 Procedure Note Interface, External Ris In - 02/15/2019 11:53 PM ASTROCHEMIST FINAL REPORT U/S, ABDOMINAL, LIMITED CLINICAL HISTORY: eval cholecystitis, ch oledocholithiasis Comparison: None Technique: Real-time transabdominal ult rasound of the right upper quadrant abdomen was performed. Liver: 14.8 cm, No acute findings.. Gallbladder: Cholelithiasis present.. No gallbladder wall thickening. No pericholecystic fluid.. No sonographi c Torres's sign. Biliary tree: No intrahepatic ductal dil atation. CBD: 3 mm. Pancreas: Not well-seen. Right kidney: No acute findings.. No ascites is present in the abdomen. The visualized abdominal aorta is normal in caliber. The IVC and Hepatic veins are patent. Impression: Cholelithiasis without sonographic evide nce of acute cholecystitis. No extrahepatic ductal dilatation or vis ualized choledocholithiasis. . Signed: Latasha Olvera MD Report Verified Date/Time: 02/15/2019 2 3:50:53 Performing Organization Address City/State/Zipcode Phone Number [facility] after 02/08/2019 Advance Directives For more information, please contact: [phone] Code Status Date Activated Date Inactivated Comments Full Code 02/15/2019 2:10 PM 02/18/2019 12:36 PM This code status was determined by: Patient
--- OUTSIDE RECORDS SUMMARY | 2020-02-09 13:53 | XMS REPORT | Continuity of Care Document ---
:1975 Author Organization [facility] t Address [address] [place] [address] Care Team Providers Name Role Phone Pcp Primary Care Physician Unavailable LESLIE Attending Clinician Unavailable Leslie ECHEVERRIA Attending Clinician Amor Blanco MD Attending Clinician [phone] Tu , Hines Attending Clinician Rene ECHEVERRIA Attending Clinician Jacob ECHEVERRIA, F. Attending Clinician AMOR BLANCO Admitting Clinician Unavailable Problems Condition Condition Condition Status Onset Resolution Last Treating Co mments Source Name Details Category Date Date Treatment Clinician Date Acute Acute Disease Active 2018-[address] [facility] [address] cholecysti cholecysti 04-20 [facility] k[facility] - tis tis 00:00: Medical 00 Center Calculus Calculus Disease Active 2018-03 [facility] gallbladde gallbladde 00:00: Me dical r without r without 00 Cent er cholecysti cholecysti tis tis without without obstructio obstructio n n Transamini Transamini Disease Active 2018-[address] [facility]is tis 04-19 [facility] Hypertensi Hypertensi Disease Active 2018-[address] on on 04-19 [facility] Seizure Seizure Disease Active 2018-[address] [facility] disorder disorder 04-19 [facility] Anemia Anemia Disease Active 2018-[address] [facility] 04-19 [facility] Thrombocyt Thrombocyt Disease Active 2018-[address] osis osis 04-19 [facility] History of Past Illness Condition Condition Condition Status Onset Resolution Last Treating Co mments Source Name Details Category Date Date Treatment Clinician Date Acute Acute Disease Resolve 2018-032019-02-16 2019-02-[address] [facility] [address] cholecysti cholecysti d 2 00:00:00 07:25:18 [facility]is [facility] 00 Center Allergies, Adverse Reactions, Alerts Allergy Allergy Status Severity Reaction(s) Onset Inactive Treating Comm ents Source Name Type Date Date Clinician Cran[place]r Drug Active Itching 2018-[address] [facility] y Allergy 04-18 [facility] Fish Drug Active Swelling 2018-[address] [facility] Containi Allergy 04-18 [facility] - ng 00:00: Medical Products 00 [place] Social History Social Habit Start Date Stop Date Quantity Comments Source History of tobacco 1992-02-16 Current some day [facility] use 00:[facility]00 smoker [facility] History [facility] lashanda - Alcohol Std Drinks [facility] Sex Assigned At [facility] Cigarettes smoked 2019-02-17 2019-02-[address] [facility] lashanda - current (pack per 00:00:00 00:00:00 [facility] day) - Reported Cigarette 2019-02-17 2019-02-[address] [facility] lashanda - pack-years 00:00:00 00:00:00 [facility] Tobacco use and 2019-02-17 2019-02-17 Never used [facility] - exposure 00:00:00 00:00:00 [facility] Alcohol intake 2019-02-17 2019-02-17 [facility] non-drinker of Medical Ce nter alcohol (finding) History [facility] 2019-02-15 2019-02-[address] [facility] - Alcohol Frequency 00:00:00 00:00:00 [facility] History [facility] 2019-02-15 2019-02-[address] [facility] - Alcohol Binge 00:00:00 00:00:[address] [facility] [address] Smoking Status Start Date Stop Date Source Current some day smoker 2019-02-17 00:00:00 [facility] Medications Ordered Filled Start Stop Current Ordering Indication Dosage Frequency Signature Comments Components Source Medication Medication Date Date Medication? Clinician (SIG) Name Name divalproex 2018-03 Yes epilepsy 125mg QD Take [address] [facility] (DEPAKOTE) 2-04 mg by [facility] - 125 MG EC 10:36: mouth Medical tablet 04 daily. Center amLODIPine 2018-03- No 5mg QD Take [address] (NORVASC) 5 2-04 03-03 tablet (5 Iqra kes - MG tablet 00:00: 23:59 mg total) Me dical 00 :00 by mouth Center daily for 90 days. amoxicillin 2018-03 2019- No 1{tbl} Take [address] -clavulanat 2-04 12-09 tablet by Iqra kes - e 00:00: 23:59 mouth Medical (AUGMENTIN) 00 :00 every 12 Cent er 875-125 mg (twelve) per tablet hours for 5 days. famotidine 2018-03 Yes 1{tbl} Take [address] (PEPCID) 20 1-30 tablet by Reyna es - MG tablet 00:00: mouth Medical 00 every 12 Center (twelve) hours. Vital Signs Vital Name Observation Time Observation Value Comments Source Systolic blood 2019-02-18 07:00:00 178 mm[Hg] [facility] Diastolic blood 2019-02-18 07:00:00 95 mm[Hg] [facility] S [facility] Heart rate 2019-02-18 07:00:00 77 /min [facility] Body temperature 2019-02-18 07:00:00 35.83 Nahomi [facility] Respiratory rate 2019-02-18 07:00:00 18 /min [facility] Oxygen saturation in 2019-02-18 07:00:00 98 /min [facility] Arterial blood by Medical Ce nter Pulse oximetry Body height 2019-02-15 13:21:00 157.5 cm [facility] Body weight 2019-02-15 13:21:00 78.654 kg [facility] BMI 2019-02-15 13:21:00 31.72 kg/m2 [facility] Procedures Procedure Date / Time Performed Performing Clinician Naomi owusu HEPATIC FUNCTION PANEL 2019-02-18 06:28:00 Madelin Blanco [facility] BASIC METABOLIC PANEL 2019-02-18 06:28:00 Vikas Alejo Madelin [facility] (7) [facility] CBC W/PLT COUNT & AUTO 2019-02-18 06:28:00 [facility] TRANSFUSION SERVICE 2019-02-17 17:51:19 Provider, Cesilia [facility] REPORT - SCAN Scanning [facility] TISSUE EXAM 2019-02-17 11:26:00 Trudy James [facility] LAPAROSCOPY,CHOLECYSTECT 2019-02-17 08:43:00 Trudy James [facility] HEPATIC FUNCTION PANEL 2019-02-17 06:05:00 [facility] BASIC METABOLIC PANEL 2019-02-17 06:05:00 [facility]elaирина [facility] (7[facility] CBC W/PLT COUNT & AUTO 2019-02-17 06:05:00 [facility] DIFFERENTIAL [facility] ABORH, MANUAL 2019-02-16 08:33:00 Tiny Orona [facility] SCREEN, URINE 2019-02-16 06:53:00 Dodie Spear [facility] HEPATIC FUNCTION PANEL 2019-02-16 06:51:00 Dodie Spear [facility] BASIC METABOLIC PANEL 2019-02-16 06:51:00 Dodie Spear [facility] () [facility] MAGNESIUM 2019-02-16 06:51:00 Dodie Spear [facility] PHOSPHORUS 2019-02-16 06:51:00 Dodie Spear [facility] LIPASE 2019-02-16 06:51:00 Dodie Spear [facility] TYPE AND SCREEN, 2019-02-16 06:51:00 Dodie Spear [facility] CBC W/PLT COUNT & AUTO 2019-02-16 06:51:00 Dodie Spear [facility] URINALYSIS W/ REFLEX 2019-02-15 22:16:00 [facility] ErMadelin gifford [facility] - URINE CULTURE [facility] BASIC METABOLIC PANEL 2019-02-15 15:04:00 [facility] Madelin [facility] - (7) [facility] HEPATIC FUNCTION PANEL 2019-02-15 15:04:00 [facility] PROTHROMBIN TIME/INR 2019-02-15 15:04:00 [facility] APTT 2019-02-15 15:04:00 [facility] MAGNESIUM 2019-02-15 15:04:00 [facility] GAMMA GLUTAMYL 2019-02-15 15:04:00 [facility] - TRANSFERASE (GGT) [facility] CBC W/PLT COUNT & AUTO 2019-02-15 15:04:00 [facility] DIFFERENTIAL [facility] US ABDOMEN LIMITED 2019-02-15 11:37:00 Dodie Spear I [facility] Plan of Care Planned Activity Planned Date Details Comments Source Future Scheduled 2019-11-17 INFLUENZA VACCINE (#1) [facility] - Test 00:00:00 [code = INFLUENZA Medical Ce nter VACCINE (#1)] Future Scheduled [address] Reyna es - Test 00:00:00 malignant neoplasm of Medica l Center cervix (procedure) [code = 491601509] Future Scheduled [address] [facility] - Test 00:00:00 (procedure) [code = Medical Center 19412356] Future Scheduled [address] [facility] - Test 00:00:00 0-64 YRS (1 of 1 - Medical C enter PPSV23) [code = PNEUMOCOCCAL VACCINE 0-64 YRS (1 of 1 - PPSV23)] Results Test Description Test Time Test Comments Results Result Comments Source Tissue Exam 2019-02-19 12:09:00 Test Item Value Reference Range Interpretation Comme nts Case Report (test code = 104) Surgical Pathology Report Case: [id number] Authorizing Provider: Trudy James MD Collected: 02/17/2019 1126 Ordering Location: [address] Received: 02/17/2019 1147 Service Pathologist: Angela Beach MD Specimen: Gallbladder DIAGNOSIS (test code = 3220) [id number] p tvINdCGigfjQkQYzqy5BsY9QsUeBbNHlacdHoER SpVyiyjuisOSLxCSX3ilKvWGHfDUzuQAZrEYxoL s2htWSlfNawAdMfBRDjt0zpwwIPtmsriZn9s4cp HSQkXgW9wBPxPEduI6qarnBurOMbWABrFTq3uX1 5WAYfgS1qrKQuLBjgjfEsOIczbyMqxwMiSea1KX XpU1edUYSmYXLnU0MdZU7iRBTjGiy2EKA1HKE1t Brdf9S8lCOihAPamPakNyBkSwXfLWWMb9EfGOe2 cAeaM6JtJJOkBcD4dHRsTTRdVLnfFIAdTQZnerP 7rM95HQbhrjL4nYZdl3Yvl17fv076nH8qzBTiLE L7HZHcNVNhwYQsBWPhZQR8CQUwgWCxG2e7HwAzw RQhS0C4JjXvrXAcN8Y3WrUbkTEeS5V0LaHslDDg HNJbhQPhKq0voJXajKZton2jln25EQD4e4SsyUn dUZE2LZW3YsUiQt2gsHMfHDLtAJ3rQjNcuBCnJC Oqxo37gBknCCwjifCvxM5xOpXuQMBxnFCqUOHzK O6vrUIrTVHixT5sqxapNCBbDkJhmbrgRYWvxNqb akRgEt1ebIlgPEF7CEzhV8odbK0qEtJ0MJodV5i gpM4jCSa6VNkqrUF0WTVfzP4sCN2asaxdz1rtHr DmQZ6pgdtcn5hzWmItTR6vjiu6m7shPvHgCK4sm gbcy5oaOlFvVCooWAOcoixwUQXgb7AtjkcsOOJh z7ApM7WggUozC23joDroJ58mEEFxxQbsnZ1fhVz ygR3gKcMfXfQxTWmhoMxvdQMuhijwIQhnbaSyJH WtGHmfWCYvFDYaSmTkbBPkPPYlvoCtrPfagM8xY jBcZnMyMFxwbGFpblxmMVxmczIwIEEuIEdBTExC TPRHPSYITOYZAJ9HLRYQW6SNV7NOXZd5MUBbnnu xbFxwbGFpblxmMFxmczIwXHBsYWluXGYxXGZzMj YfMZEgSITvYYQQCi0QUEWhD4fZIODRAHWFLRALB uJXTOSZJGJNT2qMSJmWDBpXQ1bBYwbeaAWkrxoh PRxcgxEmAQKsufjgLRT7v1yxoDIlGTZqzTRpXMB eNSwvkuKrIRUuUqbsxhhtDPGySGI0xdVhPBQfMH byGHYoYZjhVm1iwCOivBrdAjLwBOKas8xopzELg fkrwXj0h5ghQSOjKyH6wTMkAXwmF9gqxkWeuARa TMTpRQz9pK24SALleY9moQAkHKkbqjGpOkA9JNt gKKPgTyF2BGQghZKsAORcK2ujMTWbWJbzBVUuUY uubIPiVBZ6mFysi8N7vFWniFRczJvxXjVmCpTsS wONp4NwXAs2nQeoH9CaLERvPnL6eQEjNHXdMDud GCZwOEGsjgY7mY27UNxblpN6eGOju2Gwl81sl23 4uM4zvCYgQZR4CPEcEHVigRWlRDXwOGH3YLTvyX AuP0tuNVEfMS7defxxBHruLUooJWFefHO3YMYxu AHkW1TyYXWxVFmgHCSliva8MfAoOq4mgSLdkUvb NZyfk9emz1nxfAXcBke6MPMhCsYjQzliEYarc2E ky1rjEIFfdr0nTPK9eYNhnVgqn7Y5nKLrRUJjuC MuBJZvDJ3soZAiCHPgrV4ebuokBFGyAeIlfxqrY VZmzRvzdmPtYx5xeLxvAYO4DFefB6hprV5rOhO9 MYspZ1phaG5pJJs0OQloFPXnmBL8dgZ6OYSynMO eP4CtbY7eHAJcYT9ntgm3s0xdFRQ2VElrJZOoIs R4xiU5MEKmvWUoOMDssAlrWTsii652WON3StRlL SSnj3JcA1UuhEdzQ55jjHqmC46lJBTjcChivY6n jWumsT2rFqKvLuWrHWhtsQpzFO2rCMXcY9nzzZB eDOAjESEgS4svPgKfwV5foAuuEFqjkfYqOJFbLc p1YRCvbAZiDHDeXwe0GMSjKKAuC08hgmzsJBQ4h X1ty3nps0KiMJylDDP6SHUhq35pNOigdfC2SVba Ni99UAftMUG4JEvcTDI5sT== CPT Code(s) (test code = 3357) k3ujmCAtITTnfHNrOpErXJDxDLMre2mbFABw bGF pYsUoTiTbJgCcZtahaECtEMTtNtVri2yrx730aY Vxs7xeNOMdLaA1zZRpHBAcvBLpP795l4ezn2ikb pVgmID9EPFkPDK3DFospoIdeoQ6BRobyMErPyD1 KGuqjlXwWClxnaHmgnUgYqj3BMGlK327AAO2zEo ec3nuOLA8YPOjOLIeRgNyBl1wbBTjX673CVBpXC VDDAXanMk9GXEzoeBxfxDcuCSOd510K202d1isL XEgxjNhnXgZipkiq9psT031QHClePKspfDrMtHf XPSijENjtDF8MNIpOX8pziosGuJlAK5jyuogPoJ uFC6yioi7XsFwQX8jckplVdUqPCxvTPZfmmlaMK Mnd6SinemtVN4qN7Eas8K3dT9trYRrMPPjtQIkN sXhBEAtga7azGZtXNsvl9AjHUI9muZ4hLAjyYGd VVLfDI19Irkmg3QyHjutDPB9NBVrepZvs3Sjr2t pRwUznjAoD5nnW8LzXYXcQPRmOMVtOyTavrLep2 Xkz7AasLDzaQp4y2yvMZIaVKBcuRogt2trQFM1S ATlG0X0bJImc7lcBHagGLWmjZF0jcfqHSjkOHRy roY1lwzvIObxTBXzgBZ9knclNWjzHZOrXiF4uff dALhzRVQsOTO3KFhjz830GKY1JCfgXqxuNOisIT BnbmNvbnRccGduZGVjXHBsYWluXHBsYWluXGYwX QSyPdApfYtfhYzflE7iKnUcCoRfGGuoCM4cUFRm A3brdXJbBEQsHJJiT8nqTnPzfH6kyKgaEBcrbtY cZLr8CmI3SCLgaj7= CLINICAL HISTORY (test code = 3356) n6hzbGRkZSGspDKmCyHhWXMpVHKok9h cZGVmbGF mJeOdLkSgIqGwPjfmvMLpDDGtIwVon8fnl479rW Tql5heBBBtBfI3bZBwPPZqmIGtY725f6wav3wff zUciZM0VRGjEYL4MGfquiYtzcA9MMcsgWAiMjQ4 CQvrwaGwPLoyilVbokTgPjp6AOOpW056EDO0oGq kp4baEDJ5DVHbIVIlSoInFr4oxREhD294EGDfRS DGZOOdeDb1NWBlcqRuefXjqGWMc109T121o7qaP ITvwxGxfYrCkghvy5qqL059KHNrnKMsmzUvLyYl UQIkbXDrnJV7VSVqXK9fdbneEjRaKT3dbmaoDsU kNE9fykd8UqKuGO7fhvkkYmJlJErvSFTueagpOM Jja5KpakdwUT5yF9Tcg3S9hT9hkDJwWBVooVFrG wPyKJIbil3znXEhRKgxx4TbFGR7tpU2jFUgeHGt BKRtHA96Bjzmu9McSwrmADL2IMHprmKml5Jrs7r iVdFvloVyI5biI5StWWGeXIKyWLTyGtJirjZcs0 Pmw0EgfOGvzVi9d5ncDAZuYECheEvul9lvDGN6G NClZ9R5mSAsm2qhHPzeBWQhyMO8sxwdJGciZXEl yiC0iuepRMwpFTBspMW2mvxwEXmeLANhMjS1drv eBYeqKGPrTSX2ASbrs476OIU0DTubZekmKTzaNF BnbmNvbnRccGduZGVjXHBsYWluXHBsYWluXGYwX TBiThMkiDhtqUgckS7vWvHzBdWeZKpfFI6tBKHf U0spaOXeICOlACPrQ3tfLcCneC6usZkoGQznxbQ wIExlZnQgcmVuYWwgbWFzcyBccGFyfQ== SPECIMEN SOURCE (test code = 3377) t9mjxCZlZTKxqUChPiCyXYThTXRrm6me ZGVmbGF kVhCsIaYwHvObPvmbvAMrYRAbNpUvc7hvt578gW Bxj0glCGCrQnQ8wYFuIQDraRTwZ081d1psi6btc xFlyII0DHAoVRB7HCxwkfJibtA0YDhhkKKjKvY2 FXsbdvXmHYvldhFexbMuWeh4JNJoZ496HVT4xXl nk5drHZS7GUBmJTNkCyHbFs8umWXsT539DKRaTT SJVMSnpCo5AAOgteDjgqUyvHHUx677G686t2ewN GTgenDiyFkAzclwf8ygD009HPVzvKDvuiUfUmJv OEMxfEXqgYL9ZYYzDK3rltepCgCoWM9veabpPvO vQE8fhgp2RcOaGM1atxsbUjAuBAdcCISrujtiXN Jrr0LvtiztMN2nQ7Rmt4A0vD6bhGOmBSXxiBDfZ oGiRGWgfq1ilUXyRMccd8DoXHU4shV5rWArtPLj KHFdJD44Htnzt7AgPqyqJNL7QCZzncHpr2Nyt7x qDpFmtxIxZ3gwB9AwHHZvXJAnYYNoEvLdbmNwl1 Iqz4BwcZStbCm2n3yuCLXtAKFpwAoxl0foAIH7U ZGrU9Z7fPAqz1wvUDpyQYLabGU6xfdvHHteJEZz dvP3evnbTErzPYRilOP7vqjjTWsbZJVtHlB9ymu zAGunAXOhPQG0KScka828MLC9PVayVnseAXcvEW BnbmNvbnRccGduZGVjXHBsYWluXHBsYWluXGYwX XYyGeTnfQhhgQochU5rBwTxEiXrYSovJO2sKRLo I7xvtCJfZSEgKFWcZ7taCjIjrD7vzThlLYhoqpE wIEdhbGxibGFkZGVyIFxwYXJ9 GROSS DESCRIPTION (test code = 3366) u6gzvRTuZSAnwODoNeQiTJZvDFYik2 lcZGVmbGF vLwPvGdPpJrTuUzttrZRmGILrNoZsg2vvt993zU Bwj5vgFOLtEeR6iXNrXJJtvYSaP844w9ycl3ghl lFjeJC0YJWuAKL0IUrfnsVszcB8MFalnPLkPuK9 WMyuecGwUVdqcgRxmoTzXwz5AYSsD489UKM6iYn df4daSCR1PLRfHLFsKiWaBw4znCRrQ086QWDrBB CQIQPytEe2NQNmzqOngdLwuVSPd152J422l4ahQ KOacgKqoKwVlzsdc8kcN592PJVzrXCnyiKeSbJm SMQlbOOxeJJ5HVNaXN5hzopzJoAoEN9evwmvZtH vCM6digv9FyDgKS4lzawtMoHfEBldQFYndcrsWB Tzv8VcfcwzML8yM1Ojn5C9zZ7pwZHaGINuqSEjT sYrSYVorb3bnRGqTIbgi6IoYOA0hsE6qJYmeHZi PINbMJ77Zxmci8FeAjuuMOM0JBKclhYqv6Msr1y zGyXkrsEtT0swL7VnOWYcSVJiIRFtJvQpnsAcm3 Kqu9WecQFipYc1w2ykWNClISSunDdru0diPVG7K QKiT7D3eXFce7bxUHrcYNRocLO5vhxvNGjuSMOl syX3locoDAjcYIDqoQM5agafDKbuHLLiUlZ2ctz yPSttIAKzKUE3VZukw725ZNP9QDenDfxzDCelJF BnbmNvbnRccGduZGVjXHBsYWluXHBsYWluXGYwX FBzWjXwgDtruQkipG0wWbNmQnFdUYzuJT2rBHBh T7geiLHcZXKcRFFgA4paYvOfgE7pbFzxTKfsdzZ xZOHkD0UuyrMhHWlbYXTebm9diDzqFDheWlPfHK Uif0m3hZF2iDGevEO9gMKmdGxyAC0iyKBgEYCxJ 6Xmh7wbydIjlE5jFDDnRM2wHPTrOMlqPmffOQRs huHgzTGlUZH0IgCdiZDrDfPgaEQzCtPoI88toC3 9QMS7EUqjmInqbMPuQEGlINhrvBesYEVpDiEeK1 1zzXdiXRSnQPT0RYOgBUYwkP1cQxCQCBR0j1OpG mFqcIB4LFdkWZ1umNDnhj4it5k8QOYlrTPnJ8ks dQIuKqAFhLWzk8Dck5BhBKfaBCyfeXjwre3dgrB okseqn84do9FaTPMrKDLgoUUhihWzaIIjWFKwOY HxdJEypC2dbwQypjOkzSHdZFIgaI3bdrD9UNTzX GFwcHJveGltYXRlbHkgMiBtTCBvZiBncmVlbiB0 dXJiaWQgYmlsZSBhbmQgYSAyLjUgeCAyLjAgeCA kUuXiW36rGStgqyVaPFHyJO9fKYflMXHrKB35cL JcGoHyIMKrOAOmFCobgBuvHlNImMEqeKEbt2IlP AjmEEDile7zhmArszQxkvMndXJuHpUkpUogmDJl RzQRcNVnv4KdoNZwWKYsiVXomdZjPyJhY71slZh oK7cmOHXdnSVyr3SmyTI7kCFwFVGdY4Vze14iEV DtODSbdLUstCP9KMQxgR8fYPLaMCWaQTcrbOnfa PsiABuav1SlEXUyf8kpbTOhTR7thdezaoZtegAB QW3mLSRnAKdjAYLdav0= MICROSCOPIC DESCRIPTION (test code = t8yrjWQrHGNiuYMiJmOwZNOhJPFfj1 [place] [address]) oDnVoVbRaNqJtAjrsbQWyWUPzLxTwq7xya037tC Mlu4cjQPCiRjB2cGOqUQWktQTuS284v7qdz3bdi xGkgYC3QRQtQYO6DDdvjiUecaD3LLhjrBFoUaE2 VVrltdKmDNwhbyPvdvNkNeb7VJNvQ652SZH7cNa nw6fyESS0DKRhANFuBdSeCe8vbKPpH290WEYtJI PLREJfzKv9QLRremCeyiZfxLBZr749X703v0frM BLfisZppLxUnjxux9jhK701BCPrrAVejbQyWzTy BFMqcNYszNS2ZFQaYE5qnpysIoFtYM8mprsiOhT mHJ3fnzp4KkYgWO3ijehpLnAaBNioCOIebfltUF Htf7RzuomvIT3eS7Kxu8I6qH4scGQjQZXakPYyQ fQdSTPykd1vpJUnXDgvx6NmAJH7wsU8kJEvcIGc VLFxCQ62Akvto6ZaOqqqOSM2TEXlxtWdt8Kbg1y fCyPlehGqO4ivS5FfUKOhUTZfIJShUpFbxlGmm3 Sqt1EnsAAyaZz9t2vvQQGsPDMitBfco4luAUD7U XSeY4E2mJDot8xuDKtuHEGedAZ4qycxJGibTKEc yuJ2qlnvXBxuKCNnnPV6mwouQJcfHLTzDbV9fll pJZjoWYAtEOD8IZejs595KEL9VQynXbqhFCqmGP BnbmNvbnRccGduZGVjXHBsYWluXHBsYWluXGYwX JGcYqRrfLtzcTulkO6dYxAjVvHlFAhmRF2bASAn K1jnvSKiBZLxZWUcW7riKjReeT4kcNlrSZrqfxZ uDJVsytLuzq4xJS3xzRBotS== Gross assessment was performed at (test [facility] enter, code = 2777) Department of Pathology, [address] [place] [address], Technical component was performed at [facility] er, (test code = 2778) Department of Pathology, [address] [place] [address], Professional component was performed at [facility] enter, (test code = 2779) Department of Pathology, [address] [place] [address], [id number] 12:09:00Surgical Pathology Report Case: [id number] Authorizing Provider: Trudy James MD Collected: 02/17/2019 1126 Ordering Location: [address] Received: 02/17/2019 1147 Service Pathologist: Angela Beach MD Specimen: Narayan stephenson A. GALLBLADDER, CHOLECYSTECTOMY: - CHRONIC CHOLECYSTITIS WITH CHOLELITHIASIS. Signing Pathologist Direct Phone Line: [phone] signed by Angela Beach MD on 02/19/2019 at 12:09 [id number] renal mass Gallbladder Received in formalin labeled with the patient's name, accession number and "gallbladder" is a 5.0 x 2.4 x 2.0 cm intact gallbladder with a 1.5 cm linear staple line. A cystic duct is notgrossly appreciated. The serosa is yellow-green, smooth and hyperemic. The specimen is opened to reveal approximately 2 mL of green turbid bile and a 2.5 x 2.0 x 1.4 cm aggregate of green multifaceted calculi. The mucosa is paiz-green and trabeculated. The wall measures 0.2 cm thick. Manager User Experience sections are submitted in A1-A2, with the inked proximal margin is A1. PA/ew Performed.[facility], Department of Pathology, [address] [place] [id number], [facility], [facility], [address] [place] [address], [facility], Department of [facility], [address] [place] [id number], [facility] with platelet count + automated [id number] 07:03:00 Test Item Value Reference Range Interpretation Comments WBC (test code = 6690-2) 16.1 3.5- 10.5 K/L H RBC (test code = 789-8) 3.61 3.93- 5.22 M/L L MCHC (test code = 786-4) 30.4 32.2- 35.5 GM/DL L Hematocrit (test code = 4544-3) 28.9 % 34.1-44.9 L MCV (test code = 787-2) 80.1 fL 79.4-94.8 MCH (test code = 785-6) 24.4 pg 25.6-32.2 L RDW (test code = 788-0) 18.8 % 11.7-14.4 H Platelets (test code = 777-3) 418 150- 450 K/CU MM MPV (test code = 94862-4) 8.6 fL 9.4-12.3 L nRBC (test code = 413) 0 0- 0 /100 WBC % Neutros (test code = 429) 87 % % Lymphs (test code = 430) 7 % % Monos (test code = 431) 5 % % Eos (test code = 432) 0 % % Baso (test code = 437) 0 % # Neutros (test code = 670) 14.05 1.56- 6.13 K/L H # Lymphs (test code = 414) 1.11 1.18- 3.74 K/L L # Monos (test code = 415) 0.86 0.24- 0.36 K/L H # Eos (test code = 416) 0.00 0.04- 0.36 K/L L # Baso (test code = 417) 0.02 0.01- 0.08 K/L Immature Granulocytes-Relative 1 % 0-1 (test code = 2801) Lab Interpretation (test code = Abnormal 19016-1) [facility] W/PLT COUNT & AUTO [id number] 07:03:00 Test Item Value Reference Range Interpretation Comments WHITE BLOOD CELL COUNT (BEAKER) 16.1 K/ L 3.5-10.5 H (test code = 775) RED BLOOD CELL COUNT (BEAKER) 3.61 M/ L 3.93-5.22 L (test code = 761) HEMOGLOBIN (BEAKER) (test code = 8.8 GM/DL 11.2-15.7 L 410) HEMATOCRIT (BEAKER) (test code = 28.9 % 34.1-44.9 L 411) MEAN CORPUSCULAR VOLUME (BEAKER) 80.1 fL 79.4-94.8 (test code = 753) MEAN CORPUSCULAR HEMOGLOBIN 24.4 pg 25.6-32.2 L (BEAKER) (test code = 751) MEAN CORPUSCULAR HEMOGLOBIN CONC 30.4 GM/DL 32.2-35.5 L (BEAKER) (test code = 752) RED CELL DISTRIBUTION WIDTH 18.8 % 11.7-14.4 H (BEAKER) (test code = 412) PLATELET COUNT (BEAKER) (test 418 K/CU MM 150-450 code = 756) MEAN PLATELET VOLUME (BEAKER) 8.6 fL 9.4-12.3 L (test code = 754) NUCLEATED RED BLOOD CELLS 0 /100 WBC 0-0 (BEAKER) (test code = 413) NEUTROPHILS RELATIVE PERCENT 87 % (BEAKER) (test code = 429) LYMPHOCYTES RELATIVE PERCENT 7 % (BEAKER) (test code = 430) MONOCYTES RELATIVE PERCENT 5 % (BEAKER) (test code = 431) EOSINOPHILS RELATIVE PERCENT 0 % (BEAKER) (test code = 432) BASOPHILS RELATIVE PERCENT 0 % (BEAKER) (test code = 437) NEUTROPHILS ABSOLUTE COUNT 14.05 K/ L 1.56-6.13 H (BEAKER) (test code = 670) LYMPHOCYTES ABSOLUTE COUNT 1.11 K/ L 1.18-3.74 L (BEAKER) (test code = 414) MONOCYTES ABSOLUTE COUNT (BEAKER) 0.86 K/ L 0.24-0.36 H (test code = 415) EOSINOPHILS ABSOLUTE COUNT 0.00 K/ L 0.04-0.36 L (BEAKER) (test code = 416) BASOPHILS ABSOLUTE COUNT (BEAKER) 0.02 K/ L 0.01-0.08 (test code = 417) IMMATURE GRANULOCYTES-RELATIVE 1 % 0-1 PERCENT (BEAKER) (test code = 2801) Basic Metabolic [id number] 06:57:00 Test Item Value Reference Range Interpretation Comments Sodium (test code = 137 meq/L 434-016 1190-2) Potassium (test code 4.2 meq/L 3.5-5.1 Specime n slightly = 2823-3) hemolyzed Chloride (test code = 104 meq/L 98-107 2075-0) CO2 (test code = 25 meq/L 22-29 2028-9) BUN (test code = 7 mg/dL 7-21 3094-0) Creatinine (test code 1.05 mg/dL 0.57-1.25 Specim en slightly = 2160-0) hemolyzed Glucose (test code = 93 mg/dL 70-105 2345-7) Calcium (test code = 9.0 mg/dL 8.4-10.2 44615-5) EGFR (test code = 57 mL/min/1.73 [place] [address]-3) ACCURATE CREATININE MARIA ELENA ROSY IN PREDICTING GLOMERULAR FILT RATION RATE. ESTIMATED GFR IS NOT APPLICAB LE FOR DIALYSIS [facility] [id number] 06:57:00 Test Item Value Reference Range Interpretation Comments Protein, Total (test code 6.9 6.0- 8.3 gm/dL Specimen slightly = 2885-2) hemolyzed Albumin (test code = 3.8 g/dL 3.5-5 Specime n slightly 85613-0) hemolyzed Total Bilirubin (test 0.3 mg/dL 0.2-1.2 Specim en slightly code = 1975-2) hemolyzed Bilirubin, Direct (test 0.1 mg/dL 0.1-0.5 Spec imen slightly code = 1968-7) hemolyzed Alkaline Phosphatase 215 U/L 40-150 H (test code = 6768-6) AST (test code = 1920-8) 60 U/L 5-34 H Spe cimen slightly hemolyzed ALT (test code = 1742-6) 85 U/L 6-55 H Spe cimen slightly hemolyzed Lab Interpretation (test Abnormal code = 49100-0) [facility] MET[facility]OL[facility] [id number] 06:57:00 Test Item Value Reference Range Interpretation Comments SODIUM (BEAKER) 137 meq/L 136-145 (test code = 381) POTASSIUM (BEAKER) 4.2 meq/L 3.5-5.1 Specimen slightly (test code = 379) hemolyzed CHLORIDE (BEAKER) 104 meq/L 98-107 (test code = 382) CO2 (BEAKER) (test 25 meq/L 22-29 code = 355) BLOOD UREA NITROGEN 7 mg/dL 7-21 (BEAKER) (test code = 354) CREATININE (BEAKER) 1.05 mg/dL 0.57-1.25 Specimen slightly (test code = 358) hemolyzed GLUCOSE RANDOM 93 mg/dL 70-105 (BEAKER) (test code = 652) CALCIUM (BEAKER) 9.0 mg/dL 8.4-10.2 (test code = 697) EGFR (BEAKER) (test 57 mL/min/1.73 ESTIMA KAROLINA GFR IS code = 1092) sq m NOT ACCURATE CREATININE CLEARANCE IN PREDICTING GLOMERULAR FILTRATION RATE . ESTIMATED GFR I S NOT APPLICABLE FOR DIALYSIS PATIEN TS. HEPATIC FUNCTION [id number] 06:57:00 Test Item Value Reference Range Interpretation Comments TOTAL PROTEIN (BEAKER) 6.9 gm/dL 6.0-8.3 Speci men slightly (test code = 770) hemolyzed ALBUMIN (BEAKER) (test 3.8 g/dL 3.5-5.0 Speci men slightly code = 1145) hemolyzed BILIRUBIN TOTAL 0.3 mg/dL 0.2-1.2 Specimen sli ghtly (BEAKER) (test code = hemoly zed 377) BILIRUBIN DIRECT 0.1 mg/dL 0.1-0.5 Specimen sl ightly (BEAKER) (test code = hemoly zed 706) ALKALINE PHOSPHATASE 215 U/L 40-150 H (BEAKER) (test code = 346) AST (SGOT) (BEAKER) 60 U/L 5-34 H Specimen slightly (test code = 353) hemolyzed ALT (SGPT) (BEAKER) 85 U/L 6-55 H Specimen slightly (test code = 347) hemolyzed HEPATIC FUNCTION [id number] 06:57:00 Test Item Value Reference Range Interpretation Comments TOTAL PROTEIN (BEAKER) (test code = 6.2 gm/dL 6.0-8.3 770) ALBUMIN (BEAKER) (test code = 1145) 3.6 g/dL 3.5-5.0 BILIRUBIN TOTAL (BEAKER) (test code 0.3 mg/dL 0.2-1.2 = 377) BILIRUBIN DIRECT (BEAKER) (test 0.2 mg/dL 0.1-0.5 code = 706) ALKALINE PHOSPHATASE (BEAKER) (test 221 U/L 40-150 H code = 346) AST (SGOT) (BEAKER) (test code = 45 U/L 5-34 H 353) ALT (SGPT) (BEAKER) (test code = 72 U/L 6-55 H 347) BASIC METABOLIC [id number] 06:57:00 Test Item Value Reference Range Interpretation Comments SODIUM (BEAKER) 140 meq/L 136-145 (test code = 381) POTASSIUM (BEAKER) 4.0 meq/L 3.5-5.1 (test code = 379) CHLORIDE (BEAKER) 108 meq/L 98-107 H (test code = 382) CO2 (BEAKER) (test 26 meq/L 22-29 code = 355) BLOOD UREA NITROGEN 6 mg/dL 7-21 L (BEAKER) (test code = 354) CREATININE (BEAKER) 1.01 mg/dL 0.57-1.25 (test code = 358) GLUCOSE RANDOM 89 mg/dL 70-105 (BEAKER) (test code = 652) CALCIUM (BEAKER) 8.7 mg/dL 8.4-10.2 (test code = 697) EGFR (BEAKER) (test 60 mL/min/1.73 ESTIMA KAROLINA GFR IS code = 1092) sq m NOT ACCURATE CREATININE CLEARANCE IN PREDICTING GLOMERULAR FILTRATION RATE . ESTIMATED GFR I S NOT APPLICABLE FOR DIALYSIS PATIEN TS. CBC W/PLT COUNT & AUTO [id number] 06:28:00 Test Item Value Reference Range Interpretation Comments WHITE BLOOD CELL COUNT (BEAKER) 11.0 K/ L 3.5-10.5 H (test code = 775) RED BLOOD CELL COUNT (BEAKER) 3.59 M/ L 3.93-5.22 L (test code = 761) HEMOGLOBIN (BEAKER) (test code = 8.7 GM/DL 11.2-15.7 L 410) HEMATOCRIT (BEAKER) (test code = 28.7 % 34.1-44.9 L 411) MEAN CORPUSCULAR VOLUME (BEAKER) 79.9 fL 79.4-94.8 (test code = 753) MEAN CORPUSCULAR HEMOGLOBIN 24.2 pg 25.6-32.2 L (BEAKER) (test code = 751) MEAN CORPUSCULAR HEMOGLOBIN CONC 30.3 GM/DL 32.2-35.5 L (BEAKER) (test code = 752) RED CELL DISTRIBUTION WIDTH 18.8 % 11.7-14.4 H (BEAKER) (test code = 412) PLATELET COUNT (BEAKER) (test 411 K/CU MM 150-450 code = 756) MEAN PLATELET VOLUME (BEAKER) 8.3 fL 9.4-12.3 L (test code = 754) NUCLEATED RED BLOOD CELLS 0 /100 WBC 0-0 (BEAKER) (test code = 413) NEUTROPHILS RELATIVE PERCENT 64 % (BEAKER) (test code = 429) LYMPHOCYTES RELATIVE PERCENT 26 % (BEAKER) (test code = 430) MONOCYTES RELATIVE PERCENT 6 % (BEAKER) (test code = 431) EOSINOPHILS RELATIVE PERCENT 2 % (BEAKER) (test code = 432) BASOPHILS RELATIVE PERCENT 1 % (BEAKER) (test code = 437) NEUTROPHILS ABSOLUTE COUNT 6.96 K/ L 1.56-6.13 H (BEAKER) (test code = 670) LYMPHOCYTES ABSOLUTE COUNT 2.87 K/ L 1.18-3.74 (BEAKER) (test code = 414) MONOCYTES ABSOLUTE COUNT (BEAKER) 0.69 K/ L 0.24-0.36 H (test code = 415) EOSINOPHILS ABSOLUTE COUNT 0.21 K/ L 0.04-0.36 (BEAKER) (test code = 416) BASOPHILS ABSOLUTE COUNT (BEAKER) 0.06 K/ L 0.01-0.08 (test code = 417) IMMATURE GRANULOCYTES-RELATIVE 2 % 0-1 H PERCENT (BEAKER) (test code = 2801) ABORH, [id number] 09:07:00 Test Item Value Reference Range Interpretation Comments ABO Grouping (test code = 2588) O Rh Factor (test code = 2589) [facility], [id number] 08:02:00 Test Item Value Reference Range Interpretation Comments ABO/RH AUTOMATED (BEAKER) (test O POSITIVE code = 2260) Ab Scrn (test code = 890-4) NEGATIVE [facility]Lipase[facility] 07:28:00 Test Item Value Reference Range Interpretation Comments Lipase (test code = 3040-3) 31 U/L 8-78 Lab Interpretation (test code = Normal 56316-7) [facility]Magnesium2019-[facility] 07:28:00 Test Item Value Reference Range Interpretation Comments Magnesium (test code = 2.0 mg/dL 1.6-2.6 Speci men moderately 38992-4) hemolyzed Lab Interpretation (test Normal code = 33981-3) [facility]Phosphorus2019-[facility] 07:28:00 Test Item Value Reference Range Interpretation Comments Phosphorus (test code = 4.0 mg/dL 2.3-4.7 Spec imen moderately 2777-1) hemolyzed Lab Interpretation (test Normal code = 59810-2) [facility] HospitalPregnancy Screen, [id number] 07:28:00 Test Item Value Reference Range Interpretation Comments Preg Test, Ur (test code = 2112-1) Negative [facility], [id number] 07:28:00 Test Item Value Reference Range Interpretation Comments TEST URINE (BEAKER) (test Negative code = 583) [id number] 07:28:00 Test Item Value Reference Range Interpretation Comments MAGNESIUM (BEAKER) 2.0 mg/dL 1.6-2.6 Specimen moderately (test code = 627) hemolyzed [id number] 07:28:00 Test Item Value Reference Range Interpretation Comments PHOSPHORUS (BEAKER) 4.0 mg/dL 2.3-4.7 Specimen moderately (test code = 604) hemolyzed BASIC METABOLIC [id number] 07:28:00 Test Item Value Reference Range Interpretation Comments SODIUM (BEAKER) 140 meq/L 136-145 (test code = 381) POTASSIUM (BEAKER) 4.3 meq/L 3.5-5.1 Specimen moderately (test code = 379) hemolyzed CHLORIDE (BEAKER) 108 meq/L 98-107 H (test code = 382) CO2 (BEAKER) (test 24 meq/L 22-29 code = 355) BLOOD UREA NITROGEN 6 mg/dL 7-21 L (BEAKER) (test code = 354) CREATININE (BEAKER) 1.20 mg/dL 0.57-1.25 Specimen moderately (test code = 358) hemolyzed GLUCOSE RANDOM 86 mg/dL 70-105 (BEAKER) (test code = 652) CALCIUM (BEAKER) 8.5 mg/dL 8.4-10.2 (test code = 697) EGFR (BEAKER) (test 49 mL/min/1.73 ESTIMA KAROLINA GFR IS code = 1092) sq m NOT ACCURATE CREATININE CLEARANCE IN PREDICTING GLOMERULAR FILTRATION RATE . ESTIMATED GFR I S NOT APPLICABLE FOR DIALYSIS PATIEN TS. HEPATIC FUNCTION [id number] 07:28:00 Test Item Value Reference Range Interpretation Comments TOTAL PROTEIN (BEAKER) 6.3 gm/dL 6.0-8.3 Speci men moderately (test code = 770) hemolyzed ALBUMIN (BEAKER) (test 3.4 g/dL 3.5-5.0 L Speci men moderately code = 1145) hemolyzed BILIRUBIN TOTAL 0.6 mg/dL 0.2-1.2 Specimen mod erately (BEAKER) (test code = hemoly zed 377) BILIRUBIN DIRECT 0.2 mg/dL 0.1-0.5 Specimen mo derately (BEAKER) (test code = hemoly zed 706) ALKALINE PHOSPHATASE 262 U/L 40-150 H (BEAKER) (test code = 346) AST (SGOT) (BEAKER) 119 U/L 5-34 H Specimen moderately (test code = 353) hemolyzed ALT (SGPT) (BEAKER) 105 U/L 6-55 H Specimen moderately (test code = 347) hemolyzed [id number] 07:28:00 Test Item Value Reference Range Interpretation Comments LIPASE (BEAKER) (test code = 749) 31 U/L 8-78 CBC W/PLT COUNT & AUTO [id number] 07:10:00 Test Item Value Reference Range Interpretation Comments WHITE BLOOD CELL COUNT (BEAKER) 8.0 K/ L 3.5-10.5 (test code = 775) RED BLOOD CELL COUNT (BEAKER) 3.53 M/ L 3.93-5.22 L (test code = 761) HEMOGLOBIN (BEAKER) (test code = 8.7 GM/DL 11.2-15.7 L 410) HEMATOCRIT (BEAKER) (test code = 28.1 % 34.1-44.9 L 411) MEAN CORPUSCULAR VOLUME (BEAKER) 79.6 fL 79.4-94.8 (test code = 753) MEAN CORPUSCULAR HEMOGLOBIN 24.6 pg 25.6-32.2 L (BEAKER) (test code = 751) MEAN CORPUSCULAR HEMOGLOBIN CONC 31.0 GM/DL 32.2-35.5 L (BEAKER) (test code = 752) RED CELL DISTRIBUTION WIDTH 18.8 % 11.7-14.4 H (BEAKER) (test code = 412) PLATELET COUNT (BEAKER) (test 467 K/CU MM 150-450 H code = 756) MEAN PLATELET VOLUME (BEAKER) 8.7 fL 9.4-12.3 L (test code = 754) NUCLEATED RED BLOOD CELLS 0 /100 WBC 0-0 (BEAKER) (test code = 413) NEUTROPHILS RELATIVE PERCENT 59 % (BEAKER) (test code = 429) LYMPHOCYTES RELATIVE PERCENT 30 % (BEAKER) (test code = 430) MONOCYTES RELATIVE PERCENT 6 % (BEAKER) (test code = 431) EOSINOPHILS RELATIVE PERCENT 3 % (BEAKER) (test code = 432) BASOPHILS RELATIVE PERCENT 1 % (BEAKER) (test code = 437) NEUTROPHILS ABSOLUTE COUNT 4.75 K/ L 1.56-6.13 (BEAKER) (test code = 670) LYMPHOCYTES ABSOLUTE COUNT 2.40 K/ L 1.18-3.74 (BEAKER) (test code = 414) MONOCYTES ABSOLUTE COUNT (BEAKER) 0.44 K/ L 0.24-0.36 H (test code = 415) EOSINOPHILS ABSOLUTE COUNT 0.23 K/ L 0.04-0.36 (BEAKER) (test code = 416) BASOPHILS ABSOLUTE COUNT (BEAKER) 0.07 K/ L 0.01-0.08 (test code = 417) IMMATURE GRANULOCYTES-RELATIVE 2 % 0-1 H PERCENT (BEAKER) (test code = 2801) U/S, ABDOMINAL, [id number] 23:50:00Abdomen limited area? Add comment if clarification is needed.->Gall BladderReason for exam:->eval cholecystitis, choledocholithiasisFINAL REPORT U/S, ABDOMINAL, LIMITED CLINICAL HISTORY: eval cholecystitis, choledocholithiasis Comparison: None Technique: Real-time transabdominal ultrasound of the right upperquadrant abdomen was performed. Liver: 14.8 cm, No acute findings.. Gallbladder: Cholelithiasis present.. No gallbladder wall thickening. No pericholecystic fluid.. No sonographic Torres's sign. Biliary tree: No intrahepatic ductal dilatation. CBD: 3 mm. Pancreas: Not well-seen. Right kidney: No acute findings.. No ascites is present in the abdomen. The visualized abdominal aorta is normal in caliber. The IVC and Hepatic veins are patent. Impression: Cholelithiasis without sonographic evidenceof acute cholecystitis. No extrahepatic ductal dilatation or visualized choledocholithiasis. . Signed: Chay Olvera MDReport Verified Date/Time: 02/15/2019 23:50:53 US abdomen [id number] 23:50:00Interface, External Ris In - 02/15/2019 11:53 PM CSTFINAL REPORT U/S, ABDOMINAL, LIMITED CLINICAL HISTORY: eval cholecystitis, choledocholithiasis Comparison: None Technique: Real-time transabdominal ultrasound of the right upper quadrant abdomen was performed. Liver: 14.8 cm, No acute findings.. Gallbladder: Cholelithiasis present.. No gallbladder wall thickening. No pericholecystic fluid.. No sonographic Torres's sign. Biliary tree: No intrahepatic ductal dilatation. CBD: 3 mm. Pancreas: Not well-seen. Right kidney: No acute findings.. No ascites is present in the abdomen. The visualized abdominal aorta is normal in caliber. The IVC and Hepatic veins are patent. Impression: Cholelithiasis without sonographic evidence of acute cholecystitis. No extrahepatic ductal dilatation or visualized choledocholithiasis. . Signed: Chay Olvera MDReport Verified Date/Time: 02/15/2019 23:50:53 [facility] + Reflex to [id number] 22:43:00 Test Item Value Reference Range Interpretation Comments Color, UA (test code = 5778-6) Light Yellow Clarity, UA (test code = 5767-9) Clear Specific [place], UA (test code 1.003 1.001-1.035 = 5811-5) pH, UA (test code = 5803-2) 7.0 5.0-8.0 Protein, UA (test code = Negative Negative 32395-7) Glucose, UA (test code = 365) 500 mg/dL Negative A Ketones, UA (test code = 2514-8) Negative Negative Bilirubin, UA (test code = Negative Negative 73086-7) Blood, UA (test code = 35185-1) Negative Negative Nitrite, UA (test code = 5802-4) Negative Negative Leukocytes, UA (test code = Negative Negative 5799-2) Urobilinogen, UA (test code = 0.2 mg/dL 0.2-1 74885-3) RBC, UA (test code = 00238-4) 0 /HPF WBC, UA (test code = 5821-4) 1 /HPF Bacteria, UA (test code = Rare 81249-2) Squam Epithel, UA (test code = 1 /HPF 44017-3) Specimen Source (test code = 2795) Lab Interpretation (test code = Abnormal 93275-5) [facility]/ [facility]FLEX URINE [id number] 22:43:00 Test Item Value Reference Range Interpretation Comments COLOR (BEAKER) (test code = 470) Light Yellow CLARITY (BEAKER) (test code = Clear 469) SPECIFIC GRAVITY UA (BEAKER) 1.003 1.001-1.035 (test code = 468) PH UA (BEAKER) (test code = 467) 7.0 5.0-8.0 PROTEIN UA (BEAKER) (test code = Negative Negative 464) GLUCOSE UA (BEAKER) (test code = 500 mg/dL Negative A 365) KETONES UA (BEAKER) (test code = Negative Negative 371) BILIRUBIN UA (BEAKER) (test code Negative Negative = 462) BLOOD UA (BEAKER) (test code = Negative Negative 461) NITRITE UA (BEAKER) (test code = Negative Negative 465) LEUKOCYTE ESTERASE UA (BEAKER) Negative Negative (test code = 466) UROBILINOGEN UA (BEAKER) (test 0.2 mg/dL 0.2-1.0 code = 463) RBC UA (BEAKER) (test code = 0 /HPF 519) WBC UA (BEAKER) (test code = 1 /HPF 520) BACTERIA (BEAKER) (test code = Rare 517) SQUAMOUS EPITHELIAL (BEAKER) 1 /HPF (test code = 516) SOURCE(BEAKER) (test code = 2795) HEPATIC FUNCTION [id number] 17:03:00 Test Item Value Reference Range Interpretation Comments TOTAL PROTEIN (BEAKER) 6.6 gm/dL 6.0-8.3 Speci men slightly (test code = 770) hemolyzed ALBUMIN (BEAKER) (test 3.7 g/dL 3.5-5.0 Speci men slightly code = 1145) hemolyzed BILIRUBIN TOTAL 0.5 mg/dL 0.2-1.2 Specimen sli ghtly (BEAKER) (test code = hemoly zed 377) BILIRUBIN DIRECT 0.2 mg/dL 0.1-0.5 Specimen sl ightly (BEAKER) (test code = hemoly zed 706) ALKALINE PHOSPHATASE 342 U/L 40-150 H (BEAKER) (test code = 346) AST (SGOT) (BEAKER) 202 U/L 5-34 H Specimen slightly (test code = 353) hemolyzed ALT (SGPT) (BEAKER) 99 U/L 6-55 H Specimen slightly (test code = 347) hemolyzed Gamma Glutamyl Transferase (GGT)2019-02-15 16:00:00 Test Item Value Reference Range Interpretation Comments GGT (test code = 2324-2) 149 U/L 9-64 H Spe cimen slightly hemolyzed Lab Interpretation (test Abnormal code = 58662-1) [facility] 16:00:00 Test Item Value Reference Range Interpretation Comments MAGNESIUM (BEAKER) 2.1 mg/dL 1.6-2.6 Specimen slightly (test code = 627) hemolyzed BASIC METABOLIC [id number] 16:00:00 Test Item Value Reference Range Interpretation Comments SODIUM (BEAKER) 137 meq/L 136-145 (test code = 381) POTASSIUM (BEAKER) 3.9 meq/L 3.5-5.1 Specimen slightly (test code = 379) hemolyzed CHLORIDE (BEAKER) 102 meq/L 98-107 (test code = 382) CO2 (BEAKER) (test 25 meq/L 22-29 code = 355) BLOOD UREA NITROGEN 7 mg/dL 7-21 (BEAKER) (test code = 354) CREATININE (BEAKER) 1.15 mg/dL 0.57-1.25 Specimen slightly (test code = 358) hemolyzed GLUCOSE RANDOM 92 mg/dL 70-105 (BEAKER) (test code = 652) CALCIUM (BEAKER) 8.8 mg/dL 8.4-10.2 (test code = 697) EGFR (BEAKER) (test 70 mL/min/1.73 ESTIMA KAROLINA GFR IS code = 1092) sq m NOT ACCURATE CREATININE CLEARANCE IN PREDICTING GLOMERULAR FILTRATION RATE . ESTIMATED GFR I S NOT APPLICABLE FOR DIALYSIS PATIEN TS. GAMMA GLUTAMYL TRANSFERASE (GGT)2019-02-15 16:00:00 Test Item Value Reference Range Interpretation Comments GAMMA GLUTAMYL 149 U/L 9-64 H Specimen slig htly TRANSFERASE (BEAKER) hemolyz ed (test code = 364) Prothrombin time/[id number] 15:31:00 Test Item Value Reference Range Interpretation Comments Protime (test code = 13.4 11.9- 14.2 5902-2) seconds INR (test code = 1.1 <=5.9 6301-6) SUE (test code = SUE) Effective 08/13/2018: PT Reference Range ChangeNew: 11.9-14.2 Previous: 11.7-14.7 RECOMMENDED COUMADIN/WARFARIN INR THERAPY RANGESSTANDARD DOSE: 2.0-3.0 Includes: PROPHYLAXIS for venous thrombosis, systemic embolization; TREATMENT for venous thrombosis and/or pulmonary embolus.HIGH RISK: Target INR is 2.5-3.5 for patients wiht mechanical heart valves. Lab Interpretation Normal (test code = 15213-6) [facility] 15:31:00 Test Item Value Reference Range Interpretation Comments PTT (test code = 52357-5) 31.4 22.5- 36.0 seconds Lab Interpretation (test code = Normal 17983-5) [facility]PROTHROMBIN TIME/[id number] 15:31:00 Test Item Value Reference Range Interpretation Comments PROTIME (BEAKER) (test code = 13.4 seconds 11.9-14.2 759) INR (BEAKER) (test code = 370) 1.1 <=5.9 Effective 08/13/2018: PT Reference Range ChangeNew: 11.9-14.2 Previous: 11.7- 14.7RECOMMENDED COUMADIN/WARFARIN INR THERAPY RANGESSTANDARD DOSE: 2.0-3.0 Includes: PROPHYLAXIS for venous thrombosis, systemic embolization; TREATMENT for venous thrombosis and/or pulmonary embolus.HIGH RISK: Target INR is2.5-3.5 for patients wiht mechanical heart valves.[id number] 15:31:00 Test Item Value Reference Range Interpretation Comments PARTIAL THROMBOPLASTIN TIME 31.4 seconds 22.5-36.0 (BEAKER) (test code = 760) CBC W/PLT COUNT & AUTO [id number] 15:14:00 Test Item Value Reference Range Interpretation Comments WHITE BLOOD CELL COUNT (BEAKER) 9.1 K/ L 3.5-10.5 (test code = 775) RED BLOOD CELL COUNT (BEAKER) 3.79 M/ L 4.63-6.08 L (test code = 761) HEMOGLOBIN (BEAKER) (test code = 9.2 GM/DL 13.7-17.5 L 410) HEMATOCRIT (BEAKER) (test code = 29.7 % 40.1-51.0 L 411) MEAN CORPUSCULAR VOLUME (BEAKER) 78.4 fL 79.0-92.2 L (test code = 753) MEAN CORPUSCULAR HEMOGLOBIN 24.3 pg 25.7-32.2 L (BEAKER) (test code = 751) MEAN CORPUSCULAR HEMOGLOBIN CONC 31.0 GM/DL 32.3-36.5 L (BEAKER) (test code = 752) RED CELL DISTRIBUTION WIDTH 18.5 % 11.6-14.4 H (BEAKER) (test code = 412) PLATELET COUNT (BEAKER) (test 486 K/CU MM 150-450 H code = 756) MEAN PLATELET VOLUME (BEAKER) 8.2 fL 9.4-12.4 L (test code = 754) NUCLEATED RED BLOOD CELLS 0 /100 WBC 0-0 (BEAKER) (test code = 413) NEUTROPHILS RELATIVE PERCENT 66 % (BEAKER) (test code = 429) LYMPHOCYTES RELATIVE PERCENT 22 % (BEAKER) (test code = 430) MONOCYTES RELATIVE PERCENT 8 % (BEAKER) (test code = 431) EOSINOPHILS RELATIVE PERCENT 1 % (BEAKER) (test code = 432) BASOPHILS RELATIVE PERCENT 1 % (BEAKER) (test code = 437) NEUTROPHILS ABSOLUTE COUNT 5.96 K/ L 1.78-5.38 H (BEAKER) (test code = 670) LYMPHOCYTES ABSOLUTE COUNT 2.03 K/ L 1.32-3.57 (BEAKER) (test code = 414) MONOCYTES ABSOLUTE COUNT (BEAKER) 0.70 K/ L 0.30-0.82 (test code = 415) EOSINOPHILS ABSOLUTE COUNT 0.13 K/ L 0.04-0.54 (BEAKER) (test code = 416) BASOPHILS ABSOLUTE COUNT (BEAKER) 0.06 K/ L 0.01-0.08 (test code = 417) IMMATURE GRANULOCYTES-RELATIVE 2 % 0-1 H PERCENT (BEAKER) (test code = 2801)
[2020-02-09] MEDS ORDERED: BUPIVACAINE 0.5% PF 10 ML VIAL ONE (14:17)
[2020-02-09] MEDS ORDERED: LIDOCAINE 1% W/EPI 1:100,000 MDV 20 ML VIAL ONE (14:17)
--- NOTE | 2020-02-09 14:18 | EDPHYS ---
Physician Documentation [facility] Name: Geetha Khan Age: 44 yrs Sex: Female : 1975 Arrival Date: 02/09/2020 Time: 13:52 Bed 5 Private MD: ED Physician Tommie Gomez HPI: 02/08 14:04 This 44 yrs old Female presents to ER via Unassigned with complaints of ps1 Toothache. 14:04 onset was 3 months ago. Now worse this morning. Pain now severe and radiating to ear. ps1 Has poor dentition and cracked tooth. No abscess. No purulent discharge. Unable to see dentist / financial constraints. . 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 - Social history:: Smoking status: Patient reports the use of cigarette tobacco products, smokes one-half pack cigarettes per day. ROS: 14:04 Constitutional: Negative for fever, chills, and weight loss, Eyes: Negative for injury, ps1 pain, redness, and discharge, Cardiovascular: Negative for chest pain, palpitations, and edema, Respiratory: Negative for shortness of breath, cough, wheezing, and pleuritic chest pain, Abdomen/GI: Negative for abdominal pain, nausea, vomiting, diarrhea, and constipation, MS/Extremity: Negative for injury and deformity, Skin: Negative for injury, rash, and discoloration, Neuro: Negative for headache, weakness, numbness, tingling, and seizure. 14:04 ENT: Positive for dental pain. Exam: 14:04 Constitutional: This is a well developed, well nourished patient who is awake, alert, ps1 and in no acute distress. Head/Face: Normocephalic, atraumatic. Eyes: Pupils equal round and reactive to light, extra-ocular motions intact. Lids and lashes normal. Conjunctiva and sclera are non-icteric and not injected. Cardiovascular: Regular rate and rhythm. No gallops, murmurs, or rubs. Normal PMI, no JVD. No pulse deficits. Respiratory: Lungs have equal breath sounds bilaterally, clear to auscultation and percussion. No rales, rhonchi or wheezes noted. No increased work of breathing, no retractions or nasal flaring. Abdomen/GI: Soft, non-tender, with normal bowel sounds. No distension or tympany. No guarding or rebound. No evidence of tenderness throughout. Skin: Warm, dry with normal turgor. Normal color with no rashes, no lesions, and no evidence of cellulitis. MS/ Extremity: Pulses equal, no cyanosis. Neurovascular intact. Full, normal range of motion. Neuro: Awake and alert, GCS 15, oriented to person, place, time, and situation. Cranial nerves II-XII grossly intact. Sensory grossly intact. 14:04 ENT: Dental exam: dental caries, that is moderate, specifically in the lower right first molar (#30) and lower right second molar (#31), fractured teeth are noted, specifically the lower right first molar (#30) and lower right second molar (#31). Vital Signs: 14:05 BP 185 / 101; Pulse 96; Resp 17 S; Temp 97.5(TE); Pulse Ox 100% on R/A; Weight 90.72 kg ca1 (R); Height 5 ft. 3 in. (160.02 cm) (R); Pain 10/10; 14:05 Body Mass Index 35.43 (90.72 kg, 160.02 cm) ca1 Procedures: 14:07 Nerve block: (dental). Nerve block: Medication: Lidocaine 1% without epinephrine ps1 Marcaine 0.5%, Amount: 4 mls were injected, Effect: the patient's symptoms are improved, Set up for procedure. Performed by Tommie Gomez MD. MDM: 14:11 Patient medically screened. ps1 Administered Medications: No medications were administered Disposition: 02/09/20 14:17 Discharged to Home. Impression: Dental caries. - Condition is Stable. - Discharge Instructions: Dental Caries, Adult. - Prescriptions for Peridex 0.12 % Mucous Membrane mouthwash - place 15 milliliter by MUCOUS MEMBRANE route 2 times per day after brushing teeth, swish in mouth for 30 seconds then spit out; 320 milliliter. Anaprox DS 550 mg Oral Tablet - take 1 tablet by ORAL route every 12 hours As needed; 20 tablet. Clindamycin HCl 300 mg Oral Capsule - take 1 capsule by ORAL route every 6 hours for 10 days; 40 capsule. - Medication Reconciliation Form, Thank You Letter, Antibiotic Education, Prescription Opioid Use form. - Follow up: Private Physician; When: 48 Hours; Reason: Recheck today's complaints, Continuance of care, your dentist. - Problem is new. - Symptoms have improved. Signatures: Angelia Rm RN RN ss Tommie Gomez MD MD ps1 Anette Weber RN RN ca1 Corrections: (The following items were deleted from the chart) 14:25 14:17 02/09/2020 14:17 Discharged to Home. Impression: Dental caries. Condition is ss Stable. Forms are Medication Reconciliation Form, Thank You Letter, Antibiotic Education, Prescription Opioid Use. Follow up: Private Physician; When: 48 Hours; Reason: Recheck today's complaints, Continuance of care, your dentist. Problem is new. Symptoms have improved. ps1
--- NOTE | 2020-02-09 14:18 | ER ---
Nurse's Notes [facility] Name: Geetha Khan Age: 44 yrs Sex: Female : 1975 Arrival Date: 02/09/2020 Time: 13:52 Bed 5 Private MD: Diagnosis: Dental caries Presentation: 02/08 14:05 Chief complaint: Patient states: Toothache, R lower x 3 months, worse today. Denies ca1 fever. Coronavirus screen: Client denies travel out of the [place] in the last 14 days. At this time, the client does not indicate any symptoms associated with coronavirus-19. Ebola Screen: Patient negative for fever greater than or equal to 101.5 degrees Fahrenheit, and additional compatible Ebola Virus Disease symptoms Patient denies exposure to infectious person. Patient denies travel to an Ebola-affected area in the 21 days before illness onset. No symptoms or risks identified at this time. Initial Sepsis Screen: Does the patient meet any 2 criteria? No. Patient's initial sepsis screen is negative. Does the patient have a suspected source of infection? No. Patient's initial sepsis screen is negative. Risk Assessment: Do you want to hurt yourself or someone else? Patient reports no desire to harm self or others. Onset of symptoms was February 09, 2020. 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 - Social history:: Smoking status: Patient reports the use of cigarette tobacco products, smokes one-half pack cigarettes per day. Screenin:23 Abuse screen: Denies threats or abuse. Denies injuries from another. Nutritional ss screening: No deficits noted. Tuberculosis screening: Never had TB. Fall Risk None identified. Assessment: 14:23 General: Appears in no apparent distress. comfortable, Behavior is calm, cooperative. ss Pain: Complains of pain in lower right second molar (#31) and lower right first molar (#30). Neuro: Level of Consciousness is awake, alert, obeys commands, Oriented to person, place, time, situation. Cardiovascular: Capillary refill < 3 seconds is brisk in bilateral fingers. Respiratory: Airway is patent Respiratory effort is even, unlabored, Respiratory pattern is regular, symmetrical. GI: Patient currently denies nausea. EENT: Poor dentition noted. Throat is clear. Derm: Skin is pink, warm \T\ dry. normal. Vital Signs: 14:05 BP 185 / 101; Pulse 96; Resp 17 S; Temp 97.5(TE); Pulse Ox 100% on R/A; Weight 90.72 kg ca1 (R); Height 5 ft. 3 in. (160.02 cm) (R); Pain 10/10; 14:05 Body Mass Index 35.43 (90.72 kg, 160.02 cm) ca1 ED Course: 13:52 Patient arrived in ED. ds1 13:53 Tommie Gomez MD is Attending Physician. ps1 14:06 Triage completed. ca1 14:07 Arm band placed on right wrist. ca1 14:23 Patient has correct armband on for positive identification. Bed in low position. Call ss light in reach. 14:25 No provider procedures requiring assistance completed. Patient did not have IV access ss during this emergency room visit. Administered Medications: No medications were administered Outcome: 14:17 Discharge ordered by . ps1 14:25 Discharged to home ambulatory. ss 14:25 Condition: good 14:25 Discharge instructions given to patient, Instructed on discharge instructions, follow up and referral plans. medication usage, Demonstrated understanding of instructions, follow-up care, medications, Prescriptions given X 3. 14:25 Patient left the ED. ss Signatures: Delphine Murrieta ds1 Rosemarie Lang, RN RN aa5 Angelia Rm RN RN ss Tommie Gomez MD MD ps1 Anette Weber RN RN ca1 Corrections: (The following items were deleted from the chart) 14:43 13:58 Rosemarie Lang RN is Primary Nurse. aa5 darcy
[2020-02-09 16:56] VITALS: BP 185/101; TEMP 97.5; O2SAT 100
== END 2020-02-09 14:25 | disposition home or self-care (01) ==
LOC: ER 13:50
DX: K02.9 Dental caries, unspecified (principal); I10 Essential (primary) hypertension; F17.210 Nicotine dependence, cigarettes, uncomplicated
CPT/HCPCS: 99282

== ENCOUNTER 2021-01-06 08:58 | Inpatient (IN) | payer SELFPAY ==
[2021-01-06 09:36] LABS: Absolute Lymphocytes (CBC) 1.5 K/uL (0.7-4.9); Basophils % 0.7 % (0-1.3); Hematocrit 26.5 % (36.0-45.0); Lymphocytes % 16.4 % (15.3-44.8); MPV 6.5 fL (7.6-11.3); RBC Red Blood Cell Count 3.65 M/uL (3.86-4.86)
--- NOTE | 2021-01-06 09:36 | RAD REPORT ---
EXAM DESCRIPTION: RAD - Chest Single View - 01/06/2021 9:23 am CLINICAL HISTORY: CHEST PAIN COMPARISON: January 2019 TECHNIQUE: AP portable chest image was obtained 01/06/2021 9:23 am . FINDINGS: Exam is limited by portable technique, large body habitus and under penetrated technique. No peripheral consolidation or mass seen. Interstitial markings are prominent. Cardiac silhouette is enlarged even when adjusting for AP technique. Vascular engorgement is present. No measurable pleural effusion and no pneumothorax. No acute bony abnormality seen. No acute aortic findings suspected. IMPRESSION: Limited chest examination suggest a mild failure or volume overload. This needs correlat ion with clinical presentation. No peripheral mass or infiltrate identifiable.
[2021-01-06 09:37] LABS: Protime INR 1.02
[2021-01-06 09:51] LABS: ALT/SGPT 24 U/L (12-78); AST/SGOT 24 U/L (15-37); Albumin 3.5 g/dL (3.4-5.0); Alkaline Phosphatase 179 U/L (45-117); BUN Blood Urea Nitrogen 9 mg/dL (7-18); Bicarbonate 25 mmol/L (21-32); Bilirubin Direct 0.1 mg/dL (0-0.2); Bilirubin Total 0.3 mg/dL (0.2-1.0); Glucose Level 96 mg/dL (74-106); NT PRO-BNP 2630 pg/mL (<125); Potassium 3.6 mmol/L (3.5-5.1); Protein, Total 6.9 g/dL (6.4-8.2); Sodium Level 139 mmol/L (136-145); Troponin (Emerg Dept Use Only) < 0.02 ng/mL (0.0-0.045)
[2021-01-06] MEDS ORDERED: MORPHINE 4 MG/ML SYR ONE (10:09)
[2021-01-06 10:10] LABS: Urine Blood Negative (Negative); Urine Glucose Negative (Negative); Urine Protein Negative (Negative); Urine Specific Gravity >=1.030 (1.005-1.030)
[2021-01-06] MEDS ORDERED: ONDANSETRON 4 MG/2 ML VIAL ONE (10:10)
[2021-01-06] MEDS ORDERED: NA CHLORIDE 0.9% 1,000 ML ONE (10:10)
[2021-01-06 10:48] LABS: Barbiturates NEGATIVE (NEGATIVE); Benzodiazepines NEGATIVE (NEGATIVE); Cocaine NEGATIVE (NEGATIVE); METHAMPHETAM POSITIVE (NEGATIVE); Methadone NEGATIVE (NEGATIVE); Opiates NEGATIVE (NEGATIVE); Phencyclidine NEGATIVE (NEGATIVE); THC Cannibis NEGATIVE (NEGATIVE)
[2021-01-06] MEDS ORDERED: FUROSEMIDE 20 MG/ 2ML VIAL ONE (11:11)
[2021-01-06] MEDS ORDERED: ASPIRIN 325 MG TAB ONE (11:11)
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
--- NOTE | 2021-01-06 11:37 | EDPHYS ---
Physician Documentation [facility] Name: Geetha Khan Age: 45 yrs Sex: Female : 1975 Arrival Date: 01/06/2021 Time: 09:01 Bed 7 Private MD: ED Physician Michael Grimm HPI: 01/06 09:15 This 45 yrs old Female presents to ER via EMS with complaints of Chest Pain. cp 09:15 The patient or guardian reports chest pain that is located primarily in the anterior cp chest wall, right. 09:15 Onset: today. cp 09:15 The pain does not radiate. Associated signs and symptoms: Pertinent positives: cp shortness of breath, Pertinent negatives: abdominal pain, cough, diaphoresis, lower extremity pain, vomiting. The chest pain is described as sharp. Duration: The patient or guardian reports a single episode, that is still ongoing. Modifying factors: the symptoms are aggravated by deep breath, movement. 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 - Social history:: Smoking status: Patient denies any tobacco usage or history of. Patient/guardian denies using. ROS: 09:20 Constitutional: Negative for body aches, chills, fever, poor PO intake. cp 09:20 Eyes: Negative for injury, pain, redness, and discharge. cp 09:20 ENT: Negative for ear pain, sore throat, difficulty swallowing, difficulty handling secretions. 09:20 Cardiovascular: Positive for chest pain, Negative for palpitations. 09:20 Respiratory: Positive for shortness of breath. 09:20 Abdomen/GI: Negative for abdominal pain, nausea, vomiting, and diarrhea. 09:20 Back: Negative for pain at rest, pain with movement. 09:20 Neuro: Negative for altered mental status, headache, weakness. 09:20 All other systems are negative. Exam: 09:25 Constitutional: The patient appears in no acute distress, alert, awake, cp non-diaphoretic, non-toxic, well developed, well nourished, uncomfortable. 09:25 Head/Face: Normocephalic, atraumatic. cp 09:25 Eyes: Periorbital structures: appear normal, Conjunctiva: normal, no exudate, no injection, Sclera: no appreciated abnormality, Lids and lashes: appear normal, bilaterally. 09:25 ENT: External ear(s): are unremarkable, Nose: is normal, Mouth: Lips: moist, Oral mucosa: moist, Posterior pharynx: Airway: no evidence of obstruction, patent. 09:25 Neck: ROM/movement: is normal, is supple, without pain, no range of motions limitations. 09:25 Chest/axilla: Inspection: normal, Palpation: crepitus, is not appreciated, tenderness, that is moderate, of the right lateral anterior chest. 09:25 Cardiovascular: Rate: normal, Rhythm: regular, Edema: mild lower legs, JVD: is not appreciated. 09:25 Respiratory: the patient does not display signs of respiratory distress, Respirations: normal, no use of accessory muscles, no retractions, labored breathing, is not present, shallow respirations, that is mild, Breath sounds: are clear throughout, no decreased breath sounds, no stridor, no wheezing. 09:25 Abdomen/GI: Inspection: abdomen appears normal, Palpation: abdomen is soft and non-tender, in all quadrants. 09:25 Back: pain, is absent, ROM is normal. 09:25 Skin: no rash present. 09:25 Neuro: Orientation: to person, place \T\ time. Mentation: is normal, Motor: moves all fours, strength is normal, Sensation: is normal. 09:37 ECG was reviewed by the Attending Physician. cp Vital Signs: 09:11 BP 182 / 121; Pulse 78; Resp 18; Temp 97.8; Pulse Ox 99% on R/A; Weight 77.11 kg; ch5 Height 5 ft. 2 in. (157.48 cm) (R); 09:28 BP 171 / 104; Pulse 79; Resp 18; Temp 97.8; Pulse Ox 100% ; Weight 77.11 kg; Height 5 jt3 ft. 1 in. (154.94 cm); 12:05 BP 173 / 109; Pulse 71; Resp 20; Pulse Ox 100% on R/A; jt3 13:59 BP 170 / 98; Pulse 75; Resp 16; Pulse Ox 100% on R/A; iw 09:28 Body Mass Index 32.12 (77.11 kg, 154.94 cm) jt3 MDM: 09:05 Patient medically screened. cp 11:35 The patient was given aspirin in the Emergency Department. cp 11:35 Data reviewed: vital signs, nurses notes, lab test result(s), EKG, radiologic studies, cp plain films. Test interpretation: by ED physician or midlevel provider: ECG, plain radiologic studies. Counseling: I had a detailed discussion with the patient and/or guardian regarding: the historical points, exam findings, and any diagnostic results supporting the discharge/admit diagnosis, lab results, radiology results. Physician consultation: Ermias Kitchen was called at 11:35, was contacted at 11:35, regarding admission, to the telemetry unit. patient's condition. 01/06 09:07 Order name: Basic Metabolic Panel; Complete Time: 10:32 cp 01/06 10:33 Interpretation: Normal except: GFR 51; CA 8.3. cp 01/06 09:07 Order name: CBC with Diff; Complete Time: 10:32 cp 01/06 10:33 Interpretation: Normal except: RBC 3.65; HGB 8.5; HCT 26.5; MCV 72.7; MCH 23.3; RDW cp 19.1; MPV 6.5; MONI% 75.3. 01/06 09:07 Order name: LFT's; Complete Time: 10:32 cp 01/06 10:39 Interpretation: Normal except: ALK 179; A/G 1.0. cp 01/06 09:07 Order name: Magnesium; Complete Time: 10:32 cp 01/06 09:07 Order name: NT PRO-BNP; Complete Time: 10:32 cp 01/06 11:21 Interpretation: Abnormal: NT PRO-BNP 2630. cp 01/06 09:07 Order name: PT-INR; Complete Time: 10:32 cp 01/06 09:07 Order name: Troponin (emerg Dept Use Only); Complete Time: 10:32 cp 01/06 09:12 Order name: UDS; Complete Time: 11:17 cp 01/06 11:18 Interpretation: Abnormal: METHAMPHETAMINE POSITIVE. cp 01/06 10:10 Order name: Urine Dipstick-Ancillary; Complete Time: 10:32 EDMS 01/06 10:11 Order name: Urine --Ancillary (enter results); Complete Time: 10:32 eb 01/06 10:42 Order name: D-Dimer; Complete Time: 11:17 cp 01/06 10:42 Order name: LAB Add On cp 01/06 11:37 Order name: SARS-COV-2 RT PCR EDMS 01/06 09:07 Order name: XRAY Chest (1 view); Complete Time: 10:32 cp 01/06 09:07 Order name: EKG; Complete Time: 09:08 cp 01/06 09:07 Order name: Cardiac monitoring; Complete Time: 10:30 cp 01/06 09:07 Order name: EKG - Nurse/Tech; Complete Time: 10:30 cp 01/06 09:07 Order name: IV Saline Lock; Complete Time: 09:20 cp 01/06 09:07 Order name: Labs collected and sent; Complete Time: 09:20 cp 01/06 09:07 Order name: O2 Per Protocol; Complete Time: 09:20 cp 01/06 09:07 Order name: O2 Sat Monitoring; Complete Time: 09:20 cp 01/06 09:12 Order name: Urine Dipstick-Ancillary (obtain specimen); Complete Time: 10:16 cp 01/06 13:18 Order name: Diet 2 Gm Sodium; Complete Time: 13:18 iw 01/06 09:12 Order name: Urine Test (obtain specimen); Complete Time: 10:16 cp EC:37 Rate is 76 beats/min. Rhythm is regular. PA interval is normal. QRS interval is normal. cp QT interval is prolonged at 440 msec. T waves are Inverted in leads I, aVL. Interpreted by me. Reviewed by me. Administered Medications: 09:58 Drug: Zofran (Ondansetron) 4 mg Route: IVP; Site: left antecubital; jt3 10:17 Follow up: Response: No adverse reaction jt3 09:59 Drug: morphine 4 mg Route: IVP; Site: left antecubital; jt3 10:17 Follow up: Response: No adverse reaction jt3 09:59 Drug: NS 0.9% 500 ml Route: IV; Rate: bolus; Site: left antecubital; jt3 10:24 Drug: NS 0.9% 500 ml Route: IV; Rate: 125 ml/hr; Site: left antecubital; jt3 10:54 Drug: Aspirin Chewable Tablet 324 mg Route: PO; jt3 14:37 Follow up: Response: No adverse reaction iw 10:55 Drug: Lasix (furosemide) 20 mg Route: IVP; Site: right antecubital; jt3 14:37 Follow up: Response: No adverse reaction iw Disposition Summary: 01/06/21 11:36 Hospitalization Ordered Hospitalization Status: Inpatient Admission cp Provider: Ermias Kitchen cp Location: Telemetry/MedSurg (Inpatient) cp Condition: Fair cp Problem: new cp Symptoms: have improved cp Bed/Room Type: Standard cp Room Assignment: 206(01/06/21 13:54) eb Diagnosis - Chest pain, unspecified cp - Unspecified combined systolic (congestive) and diastolic (congestive) heart failure cp Forms: - Medication Reconciliation Form cp - SBAR form cp Signatures: Dispatcher [employer] EDIqra Nieto RN RN iw Michael Nguyen PA PA cp Sharona Faith eb Kirill Page RN RN ch5 Joel Abdullahi RN RN jt3 Corrections: (The following items were deleted from the chart) 11:37 10:43 CORONAVIRUS+MR.LAB.BRZ ordered. EDMS EDMS 13:54 11:36 cp eb
[2021-01-06] MEDS ORDERED: NITROGLYCERIN 0.4 MG/TAB SL PRN (14:52)
[2021-01-06] MEDS ORDERED: HYDRALAZINE HCL 20 MG/ML VIAL IV PRN (14:52)
[2021-01-06] MEDS: AMLODIPINE 10 MG TAB PO SCH (15:03)
[2021-01-06 15:21] VITALS: BMI 35.6
[2021-01-06 15:38] LABS: HDL Cholesterol 76 mg/dL (40-60); Troponin I < 0.02 ng/mL (0.0-0.045)
[2021-01-06 15:39] LABS: LDL Cholesterol, Calculated 53 (<130)
[2021-01-06] MEDS: TRAMADOL HCL 50 MG TAB PO PRN (18:50)
[2021-01-06] MEDS: ACETAMINOPHEN 500 MG TAB PO PRN (22:55)
[2021-01-06] MEDS: ALBUTEROL 2.5 MG/3 ML NEB SOL NEB PRN (23:15)
[2021-01-06] MEDS: IPRATROPIUM BROM 0.5MG/2.5ML NEB PRN (23:15)
[2021-01-07 06:28] LABS: Absolute Lymphocytes (CBC) 1.4 K/uL (0.7-4.9); Hematocrit 29.3 % (36.0-45.0); Lymphocytes % 14.7 % (15.3-44.8); MPV 6.6 fL (7.6-11.3); RBC Red Blood Cell Count 4.04 M/uL (3.86-4.86)
[2021-01-07 08:36] LABS: Potassium 4.3 mmol/L (3.5-5.1)
[2021-01-07] MEDS: ASPIRIN EC 81 MG TAB PO SCH (08:52)
[2021-01-07] MEDS: AMLODIPINE 10 MG TAB PO SCH (08:52)
[2021-01-07] MEDS: ENOXAPARIN 40 MG/0.4 ML SQ SCH (08:53)
[2021-01-07] MEDS: TRAMADOL HCL 50 MG TAB PO PRN ×2 (08:53→15:24)
--- NOTE | 2021-01-07 16:14 | P.PN ---
Subjective Date of Service: 01/07/21 Chief Complaint: Chest pain and shortness of breath Patient reports shortness of breath. She desaturate to 87% on room air at rest. She has a history of COPD. She denies any chest pain today. Physical Examination - Vital Signs Temperature: 97.4 F Blood Pressure: 152/80 Pulse: 78 Respirations: 18 Pulse Ox (%): 100 - Physical Exam General: Alert, In no apparent distress, Oriented x3 HEENT: Mucous membr. moist/pink Neck: JVD not distended Respiratory: Normal air movement, Expiratory wheezes (Mild scattered rhonchi.) Cardiovascular: No edema, Regular rate/rhythm, Normal S1 S2 Gastrointestinal: Normal bowel sounds, Soft and benign, Non-distended, No tenderness Musculoskeletal: No swelling Integumentary: No rashes Neurological: Normal speech, Normal strength at 5/5 x4 extr - Studies Laboratory Data (last 24 hrs) 01/07/21 05:55: Sodium 140, Potassium 4.3, BUN 7, Creatinine 1.14, Glucose 99 01/07/21 05:55: WBC 9.60, Hgb 9.4 L, Hct 29.3 L, Plt Count 352 01/06/21 18:58: Troponin I < 0.02 Assessment And Plan - Current Problems (Diagnosis) (1) Chest pain Current Visit: Yes Status: Acute (2) Acute CHF Current Visit: Yes Status: Acute (3) Hypertension Current Visit: Yes Status: Acute (4) Morbid obesity Current Visit: Yes Status: Acute (5) Seizure disorder Current Visit: Yes Status: Acute (6) Anemia Current Visit: Yes Status: Acute (7) COPD exacerbation Current Visit: Yes Status: Acute (8) Acute respiratory failure with hypoxia Current Visit: Yes Status: Acute - Plan Troponin trended negative Continue aspirin. Continue IV Lasix for CHF. I suspect patient also has COPD exacerbation. Obtain CTA thorax to rule out PE Obtain echocardiogram Chest pain is reproducible by palpation and musculoskeletal in nature. Continue amlodipine 10 mg daily. Hydralazine IV p.r.n. for BP spikes. Monitor intake and output and daily weight. Continue home medications for seizure disorder and thyroid disorder. Patient with microcytic anemia. Iron level is low. Start iron therapy.
--- NOTE | 2021-01-07 16:21 | RAD REPORT ---
EXAM DESCRIPTION: CT - Chest For Pe Angio - 01/07/2021 3:49 pm CLINICAL HISTORY: Chest pain and hypoxia COMPARISON: Thorax W/ Con dated 04/04/2017Thorax W/ Con dated 04/04/2017 FINDINGS: Chest Wall: No suspicious thyroid nodules or pathologic lymphadenopathy. Lungs: No acute abnormality. Emphysema. Pleura: No significant effusions or pneumothorax. Mediastinum/boubacar: No pathologic lymphadenopathy. Circumferential thickening of distal esophagus . Pulmonary arteries/Aorta: No filling defect identified. Ascending thoracic aortic ectasia measuring 3 .9 cm. Heart: No significant pericardial effusion. Cardiomegaly. Upper abdomen: No acute abnormality. Bones: No acute abnormality. All CT scans are performed using dose optimization technique as appropriate and may include automated exposure control or mA/KV adjustment according to patient size. IMPRESSION: Negative for pulmonary embolism. Emphysema. No acute process otherwise identified.
[2021-01-07] MEDS: METHYLPREDNISOLONE 40 MG INJ IV SCH (17:35)
[2021-01-07] MEDS: FUROSEMIDE 40 MG/4 ML VIAL IV SCH (17:36)
[2021-01-07] MEDS: FERROUS SULFATE 325 MG TAB PO SCH (22:01)
[2021-01-08] MEDS: METHYLPREDNISOLONE 40 MG INJ IV SCH ×3 (00:24→11:58)
[2021-01-08] MEDS: TRAMADOL HCL 50 MG TAB PO PRN (05:42)
[2021-01-08 06:34] LABS: Absolute Lymphocytes (CBC) 0.4 K/uL (0.7-4.9); Basophils % 0.3 % (0-1.3); Hematocrit 33.9 % (36.0-45.0); MPV 6.9 fL (7.6-11.3)
[2021-01-08 06:42] LABS: Potassium 4.3 mmol/L (3.5-5.1)
[2021-01-08] MEDS: FERROUS SULFATE 325 MG TAB PO SCH (08:52)
[2021-01-08] MEDS: ENOXAPARIN 40 MG/0.4 ML SQ SCH (08:52)
[2021-01-08] MEDS: FUROSEMIDE 40 MG/4 ML VIAL IV SCH (08:52)
[2021-01-08] MEDS: ASPIRIN EC 81 MG TAB PO SCH (08:52)
[2021-01-08] MEDS: AMLODIPINE 10 MG TAB PO SCH (08:52)
[2021-01-08] MEDS: ACETAMINOPHEN 500 MG TAB PO PRN (08:53)
[2021-01-08] MEDS: ALBUTEROL 2.5 MG/3 ML NEB SOL NEB PRN (12:15)
[2021-01-08] MEDS: IPRATROPIUM BROM 0.5MG/2.5ML NEB PRN (12:15)
[2021-01-08 12:30] VITALS: O2SAT 94
[2021-01-08 13:54] LABS: Platelet Estimate ADEQ; White Blood Cell Scan OK (OK)
[2021-01-08 13:55] LABS: Blood Morphology Comment NOT SEEN (NOT SEEN)
[2021-01-08 14:35] VITALS: BP 114/57; TEMP 96.9
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
== END 2021-01-08 16:30 | disposition home or self-care (01) | DRG 190 ==
LOC: ER 08:58 → ERHOLD 12:10 → 2ND 14:26 → OBSVTOIN 01-07 15:59
PROVIDERS: ADMIT Internal Medicine; ATTEND Internal Medicine
DX: J44.1 Chronic obstructive pulmonary disease with (acute) exacerbation (principal); J96.01 Acute respiratory failure with hypoxia; I50.41 Acute combined systolic (congestive) and diastolic (congestive) heart failure; E66.01 Morbid (severe) obesity due to excess calories; Z68.35 Body mass index [BMI] 35.0-35.9, adult; G40.909 Epilepsy, unspecified, not intractable, without status epilepticus; D64.9 Anemia, unspecified; I11.0 Hypertensive heart disease with heart failure; D50.9 Iron deficiency anemia, unspecified; Z20.822 Contact with and (suspected) exposure to COVID-19
CPT/HCPCS: 36415; 71045; 71275; 80048; 80061; 80076; 80307; 81003; 81025; 82947; 83540; 83735; 83880; 84466; 84484; 85025; 85379; 85610; 93005; 94640; 99285; G0378; J0360; J1650; J1940; J2405; J2920; J7030; Q9967; U0003

== ENCOUNTER 2021-06-16 10:28 | Emergency (ER) | payer SELFPAY ==
--- OUTSIDE RECORDS SUMMARY | 2021-06-16 10:33 | XMS REPORT | Continuity of Care Document ---
:1975 Author Organization [facility] t Address [facility] [place] [address] Care Team Providers Name Role Phone JOSUE Attending Clinician Unavailable RJ MCWILLIAMS Admitting Clinician Unavailable Problems This patient has no known problems. Allergies, Adverse Reactions, Alerts This patient has no known allergies or adverse reactions. Medications This patient has no known medications. Procedures This patient has no known procedures. Results Test Description Test Time Test Comments Results Result Comments Source TISSUE EXAM 2019-02-19 Surgical Pathology 12:09:00 Report Case: [id number] Authorizing Provider: Trudy James MD Collected: 02/17/2019 1126 Ordering Location: [address] Received: 02/17/2019 1147 Service Pathologist: Angela Beach MD Specimen: Gallbladder A. GALLBLADDER, CHOLECYSTECTOMY: - CHRONIC CHOLECYSTITIS WITH CHOLELITHIASIS. Signing Pathologist Direct Phone Line: [phone] deana signed by Angela Beach MD on 02/19/2019 at 12:09 [id number] renal mass Gallbladder Received in formalin labeled [...] trabeculated. The wall measures 0.2 cm thick. Outreach Analyst sections are submitted in A1-A2, with the inked proximal margin is A1. PA/ew Performed.[facility], Department of Pathology, [address] [place] [id number], [facility], Department of Pathology, [address] [place] [address], [facility], Department of Pathology, [address] [place] [address], CBC W/PLT COUNT & AUTO DIFFERENTIAL 2019-02-18 07:03:00 Test Item Value Reference Range Interpretation Comme nts WHITE BLOOD CELL COUNT (BEAKER) (test code = 775) 16.1 K/ L 3.5- 10.5 H RED BLOOD CELL COUNT (BEAKER) (test code = 761) 3.61 M/ L 3.93-5 .22 L HEMOGLOBIN (BEAKER) (test code = 410) 8.8 GM/DL 11.2-15.7 L HEMATOCRIT (BEAKER) (test code = 411) 28.9 % 34.1-44.9 L MEAN CORPUSCULAR VOLUME (BEAKER) (test code = 753) 80.1 fL 79. 4-94.8 MEAN CORPUSCULAR HEMOGLOBIN (BEAKER) (test code = 751) 24.4 pg 25.6-32.2 L MEAN CORPUSCULAR HEMOGLOBIN CONC (BEAKER) (test code = 752) 30.4 GM/DL 32.2-35.5 L RED CELL DISTRIBUTION WIDTH (BEAKER) (test code = 412) 18.8 % 11.7-14.4 H PLATELET COUNT (BEAKER) (test code = 756) 418 K/CU MM 150-450 MEAN PLATELET VOLUME (BEAKER) (test code = 754) 8.6 fL 9.4-12 .3 L NUCLEATED RED BLOOD CELLS (BEAKER) (test code = 413) 0 /100 WBC 0 -0 NEUTROPHILS RELATIVE PERCENT (BEAKER) (test code = 429) 87 % LYMPHOCYTES RELATIVE PERCENT (BEAKER) (test code = 430) 7 % MONOCYTES RELATIVE PERCENT (BEAKER) (test code = 431) 5 % EOSINOPHILS RELATIVE PERCENT (BEAKER) (test code = 432) 0 % BASOPHILS RELATIVE PERCENT (BEAKER) (test code = 437) 0 % NEUTROPHILS ABSOLUTE COUNT (BEAKER) (test code = 670) 14.05 K/ L 1.56-6.13 H LYMPHOCYTES ABSOLUTE COUNT (BEAKER) (test code = 414) 1.11 K/ L 1.18-3.74 L MONOCYTES ABSOLUTE COUNT (BEAKER) (test code = 415) 0.86 K/ L 0. 24-0.36 H EOSINOPHILS ABSOLUTE COUNT (BEAKER) (test code = 416) 0.00 K/ L 0.04-0.36 L BASOPHILS ABSOLUTE COUNT (BEAKER) (test code = 417) 0.02 K/ L 0. 01-0.08 IMMATURE GRANULOCYTES-RELATIVE PERCENT (BEAKER) (test code 1 % 0-1 = 2801) BASIC METABOLIC [id number] 06:57:00 Test Item Value Reference Range Interpretation [...] APPLICABLE FOR DIALYSIS PATIEN TS. HEPATIC FUNCTION [id number] 06:57:00 Test Item Value Reference Range Interpretation [...] (test code = 347) hemolyzed HEPATIC FUNCTION [id number] 06:57:00 Test Item Value Reference Range Interpretation [...] 72 U/L 6-55 H 347) BASIC METABOLIC [id number] 06:57:00 Test Item Value Reference Range Interpretation [...] PATIEN TS. CBC W/PLT COUNT & AUTO [id number] 06:28:00 Test Item Value Reference Range Interpretation [...] H PERCENT (BEAKER) (test code = 2801) SCREEN, [id number] 07:28:00 Test Item Value Reference Range Interpretation Comments TEST URINE (BEAKER) (test Negative code = 583) [id number] 07:28:00 Test Item Value Reference Range Interpretation Comments MAGNESIUM (BEAKER) 2.0 mg/dL 1.6-2.6 Specimen moderately (test code = 627) hemolyzed [id number] 07:28:00 Test Item Value Reference Range Interpretation Comments PHOSPHORUS (BEAKER) 4.0 mg/dL 2.3-4.7 Specimen moderately (test code = 604) hemolyzed BASIC METABOLIC [id number] 07:28:00 Test Item Value Reference Range Interpretation [...] APPLICABLE FOR DIALYSIS PATIEN TS. HEPATIC FUNCTION [id number] 07:28:00 Test Item Value Reference Range Interpretation [...] Specimen moderately (test code = 347) hemolyzed [id number] 07:28:00 Test Item Value Reference Range Interpretation Comments LIPASE (BEAKER) (test code = 749) 31 U/L 8-78 CBC W/PLT COUNT & AUTO [id number] 07:10:00 Test Item Value Reference Range Interpretation [...] (BEAKER) (test code = 2801) U/S, ABDOMINAL, [id number] 23:50:00Abdomen limited area? Add comment if clarification [...] ductal dilatation or visualized choledocholithiasis. . Signed: Latasha Olvera MDReport Verified Date/Time: 02/15/2019 23:50:53 URINALYSIS W/ REFLEX URINE [id number] 22:43:00 Test Item Value Reference Range Interpretation [...] code = 516) SOURCE(BEAKER) (test code = 2790) HEPATIC FUNCTION [id number] 17:03:00 Test Item Value Reference Range Interpretation [...] Specimen slightly (test code = 347) hemolyzed [id number] 16:00:00 Test Item Value Reference Range Interpretation Comments MAGNESIUM (BEAKER) 2.1 mg/dL 1.6-2.6 Specimen slightly (test code = 627) hemolyzed BASIC METABOLIC [id number] 16:00:00 Test Item Value Reference Range Interpretation [...] (BEAKER) hemolyz ed (test code = 364) PROTHROMBIN [id number] 15:31:00 Test Item Value Reference Range Interpretation [...] INR is2.5-3.5 for patients wiht mechanical heart valves.[id number] 15:31:00 Test Item Value Reference Range Interpretation Comments PARTIAL THROMBOPLASTIN TIME 31.4 seconds 22.5-36.0 (BEAKER) (test code = 760) CBC W/PLT COUNT & AUTO [id number] 15:14:00 Test Item Value Reference Range Interpretation [...] 0-1 H PERCENT (BEAKER) (test code = 8802)
[2021-06-16 10:55] LABS: Absolute Lymphocytes (CBC) 1.1 K/uL (0.7-4.9); Hematocrit 28.7 % (36.0-45.0); MPV 6.2 fL (7.6-11.3); RBC Red Blood Cell Count 4.16 M/uL (3.86-4.86)
[2021-06-16 11:11] LABS: Albumin 3.3 g/dL (3.4-5.0); Bilirubin Total 0.5 mg/dL (0.2-1.0); Potassium 4.2 mmol/L (3.5-5.1); Protein, Total 7.1 g/dL (6.4-8.2)
--- NOTE | 2021-06-16 11:50 | RAD REPORT ---
EXAM DESCRIPTION: CT - Abdomen Pelvis W Contrast - 06/16/2021 11:25 am CLINICAL HISTORY: Abdominal pain COMPARISON: 2019 TECHNIQUE: Computed axial tomography of the abdomen pelvis was obtained. 100 cc Isovue-300 was admin istered intravenously. Oral contrast was not requested which limits evaluation of bowel and appendix All CT scans are performed using dose optimization technique as appropriate and may include automated exposure control or mA/KV adjustment according to patient size. FINDINGS: The liver, spleen, pancreas, adrenal and and left kidney appear unremarkable. Small right kidney. Right renal artery is small. Cortical thinning. No adnexal mass. IMPRESSION: Small right kidney may be related to prior inflammation or ischemia. No acute abnormality displayed
[2021-06-16 12:16] LABS: Anisocytosis 1+; Blood Morphology Comment NOTED (NOT SEEN); Platelet Estimate ADEQ; White Blood Cell Scan OK (OK)
[2021-06-16] MEDS ORDERED: MORPHINE 4 MG/ML SYR ONE (12:17)
[2021-06-16] MEDS ORDERED: ONDANSETRON 4 MG/2 ML VIAL ONE (12:18)
[2021-06-16] MEDS ORDERED: NA CHLORIDE 0.9% 1,000 ML ONE (12:18)
--- NOTE | 2021-06-16 12:29 | RAD REPORT ---
EXAM DESCRIPTION: US - Abdomen Exam Limited - 06/16/2021 12:15 pm CLINICAL HISTORY: Abdominal pain. FINDINGS: Cholecystectomy Common bile duct measures 8 millimeters. IMPRESSION: Mild dilatation of the common bile duct may be physiologic in this patient status post c holecystectomy. Pathology such as a stricture or a nonvisualized stone can also result in this appearance and should be correlated clinically with appropriate lab values
[2021-06-16 14:38] LABS: Urine Blood Negative (Negative); Urine Glucose Negative (Negative); Urine Protein Negative (Negative); Urine pH 6.5 (5.0-7.0)
--- NOTE | 2021-06-16 15:03 | ER ---
Nurse's Notes [facility] Name: Geetha Khan Age: 46 yrs Sex: Female : 1975 Arrival Date: 06/16/2021 Time: 10:31 Bed 16 Private MD: Diagnosis: Abdominal pain, Generalized Presentation: 06/16 10:35 Chief complaint: Patient states: "About 3am I woke up with pains on the right side of ab2 my stomach." Pt denies n/v/d. Pt denies fever/chills. Coronavirus screen: Vaccine status: Patient reports receiving the 2nd dose of the covid vaccine. Client denies travel out of the [place] in the last 14 days. At this time, the client does not indicate any symptoms associated with coronavirus-19. Ebola Screen: Patient negative for fever greater than or equal to 101.5 degrees Fahrenheit, and additional compatible Ebola Virus Disease symptoms Patient denies exposure to infectious person. Patient denies travel to an Ebola-affected area in the 21 days before illness onset. No symptoms or risks identified at this time. Initial Sepsis Screen: Does the patient meet any 2 criteria? No. Patient's initial sepsis screen is negative. Does the patient have a suspected source of infection? No. Patient's initial sepsis screen is negative. Risk Assessment: Do you want to hurt yourself or someone else? Patient reports no desire to harm self or others. Onset of symptoms is unknown. 10:35 Method Of Arrival: EMS: [facility] ab2 10:35 Acuity: CORRINA 3 ab2 Triage Assessment: 10:38 General: Appears in no apparent distress. uncomfortable, Behavior is calm, cooperative, ab2 appropriate for age. Pain: Complains of pain in right upper quadrant and right lower quadrant Pain currently is 10 out of 10 on a pain scale. GI: Reports lower abdominal pain, upper abdominal pain. 10:38 Neuro: No deficits noted. Level of Consciousness is awake, alert, obeys commands, ab2 Oriented to person, place, time, situation, Appropriate for age Leadership Development Instructor are equal bilaterally. Cardiovascular: No deficits noted. Denies chest pain, shortness of breath, Patient's skin is warm and dry. Respiratory: Airway is patent Respiratory effort is even, unlabored, Respiratory pattern is regular, symmetrical. Historical: - Allergies: 10:37 No Known Allergies; ab2 - PMHx: 10:37 Asthma; COPD; Hypertension; Seizures; Thyroid problem; ab2 - PSHx: 10:37 Tonsillectomy; ab2 - Immunization history:: Adult Immunizations up to date. - Social history:: Smoking status: Patient reports the use of cigarette tobacco products, smokes one-half pack cigarettes per day. Screenin:07 Abuse screen: Denies threats or abuse. Nutritional screening: No deficits noted. vg1 Tuberculosis screening: No symptoms or risk factors identified. Fall Risk No fall in past 12 months (0 pts). No secondary diagnosis (0 pts). IV access (20 points). Ambulatory Aid- None/Bed Rest/Nurse Assist (0 pts). Gait- Normal/Bed Rest/Wheelchair (0 pts) Mental Status- Oriented to own ability (0 pts). Total Quintero Fall Scale indicates No Risk (0-24 pts). Assessment: 12:00 General: Appears in no apparent distress. uncomfortable, Behavior is calm, cooperative. vg1 Pain: Complains of pain in right lower quadrant Pain currently is 10 out of 10 on a pain scale. Pain began this morning at approximately 0300 Noted to be grimacing, guarding, moaning. Neuro: Level of Consciousness is awake, alert, obeys commands, Oriented to person, place, time, situation. Cardiovascular: Patient's skin is warm and dry. Respiratory: Airway is patent Respiratory effort is even, unlabored. GI: Bowel sounds present X 4 quads. Abdomen is tender to palpation in right lower quadrant Patient currently denies diarrhea, nausea, vomiting. : No signs and/or symptoms were reported regarding the genitourinary system. EENT: No signs and/or symptoms were reported regarding the EENT system. Derm: Skin is intact, is healthy with good turgor. Musculoskeletal: Circulation, motion, and sensation intact. 12:06 Reassessment: pt transported to US. vg1 12:30 Reassessment: Pt stated takes three BP meds and did not take one them this morning. vg1 13:00 Reassessment: Patient appears in no apparent distress at this time. Patient and/or vg1 family updated on plan of care and expected duration. Pain level reassessed. Patient is alert, oriented x 3, equal unlabored respirations, skin warm/dry/pink. Rates pain 5/10 Patient states feeling better. 14:00 Reassessment: Patient appears in no apparent distress at this time. No changes from vg1 previously documented assessment. Patient and/or family updated on plan of care and expected duration. Pain level reassessed. Patient is alert, oriented x 3, equal unlabored respirations, skin warm/dry/pink. 14:57 Reassessment: Patient appears in no apparent distress at this time. Patient and/or vg1 family updated on plan of care and expected duration. Pain level reassessed. Patient is alert, oriented x 3, equal unlabored respirations, skin warm/dry/pink. States ABD pain has increased; pt guarding ABD. Provider notified. 16:07 Reassessment: Patient appears in no apparent distress at this time. No changes from vg1 previously documented assessment. Patient and/or family updated on plan of care and expected duration. Pain level reassessed. Patient is alert, oriented x 3, equal unlabored respirations, skin warm/dry/pink. Vital Signs: 10:35 BP 146 / 90; Pulse 73; Resp 18; Temp 98.6(TE); Pulse Ox 98% on R/A; Weight 81.65 kg; ab2 Height 5 ft. 2 in. (157.48 cm); Pain 10/10; 12:00 BP 182 / 109; Pulse 86; Resp 18; Pulse Ox 100% ; vg1 12:31 BP 170 / 117; Pulse 80; Resp 16; Pulse Ox 98% ; vg1 13:30 BP 167 / 105; Pulse 93; Resp 15; Pulse Ox 96% on 2 lpm NC; vg1 14:00 BP 171 / 111; Pulse 88; Resp 16; Pulse Ox 94% on 2 lpm NC; vg1 14:50 BP 173 / 105; Pulse 80; Resp 16; Pulse Ox 94% on 2 lpm NC; vg1 10:35 Body Mass Index 32.92 (81.65 kg, 157.48 cm) ab2 ED Course: 10:31 Patient arrived in ED. am2 10:33 Kathy Kerns FNP-C is [facility]. kb 10:33 Gene Medrano MD is Attending Physician. kb 10:37 Triage completed. ab2 10:39 Arm band placed on right wrist. ab2 10:47 Inserted saline lock: 20 gauge in left antecubital area, using aseptic technique. Blood ab2 collected. 10:47 CBC with Diff Sent. ab2 10:47 CMP Sent. ab2 10:47 Lipase Sent. ab2 11:27 CT Abd/Pelvis - IV Contrast Only In Process Unspecified. EDMS 11:58 Dorina Talley, RN is Primary Nurse. vg1 12:07 Patient has correct armband on for positive identification. Bed in low position. Call vg1 light in reach. Side rails up X 1. 12:16 US Abdomen Limited In Process Unspecified. EDMS 12:23 Patient moved back from ultrasound. vg1 16:07 No provider procedures requiring assistance completed. IV discontinued, intact, vg1 bleeding controlled, No redness/swelling at site. Pressure dressing applied. Administered Medications: 12:25 Drug: Zofran (Ondansetron) 4 mg Route: IVP; Site: left antecubital; vg1 13:30 Follow up: Response: No adverse reaction; Marked relief of symptoms vg1 12:25 Drug: NS 0.9% 1000 ml Route: IV; Rate: 1000 ml; Site: left antecubital; vg1 14:27 Follow up: IV Status: Completed infusion; IV Intake: 1000ml vg1 12:27 Drug: morphine 4 mg Route: IVP; Site: left antecubital; vg1 13:30 Follow up: Response: No adverse reaction; Marked relief of symptoms vg1 Intake: 14:27 IV: 1000ml; Total: 1000ml. vg1 Outcome: 15:02 Discharge ordered by . blake 16:07 Discharged to home ambulatory. vg1 16:07 Condition: good 16:07 Discharge instructions given to patient, Instructed on discharge instructions, follow up and referral plans. Demonstrated understanding of instructions, follow-up care. 16:07 Patient left the ED. vg1 Signatures: Dispatcher [employer] EDMS Kathy Kerns, AD WRITERGiseleC AD WRITER-Anayeli Hernandez am2 Dorina Talley, RN RN vg1 Roly Zuluaga ab2
--- NOTE | 2021-06-16 15:03 | EDPHYS ---
Physician Documentation [facility] Name: Geetha Khan Age: 46 yrs Sex: Female : 1975 Arrival Date: 06/16/2021 Time: 10:31 Bed 16 Private MD: ED Physician Gene Medrano HPI: 06/16 10:54 This 46 yrs old Female presents to ER via EMS with complaints of Abdominal Pain - right kb lower. 10:54 The patient presents with abdominal pain in the right upper quadrant, right lower kb quadrant. Onset: The symptoms/episode began/occurred this morning, at 03:00. The symptoms do not radiate. Associated signs and symptoms: none. The symptoms are described as constant. Modifying factors: The symptoms are alleviated by nothing, the symptoms are aggravated by nothing. Severity of pain: At its worst the pain was moderate in the emergency department the pain is unchanged. The patient has not experienced similar symptoms in the past. The patient has not recently seen a physician. Pt reports right abd pain that started at 0300. Denies f/c/n/v/d. Historical: - Allergies: 10:37 No Known Allergies; ab2 - PMHx: 10:37 Asthma; COPD; Hypertension; Seizures; Thyroid problem; ab2 - PSHx: 10:37 Tonsillectomy; ab2 - Immunization history:: Adult Immunizations up to date. - Social history:: Smoking status: Patient reports the use of cigarette tobacco products, smokes one-half pack cigarettes per day. ROS: 10:53 Constitutional: Negative for fever, chills, and weight loss. kb 10:53 Abdomen/GI: Positive for abdominal pain, Negative for nausea, vomiting, and diarrhea. 10:53 All other systems are negative. Exam: 10:53 Constitutional: This is a well developed, well nourished patient who is awake, alert, kb and in no acute distress. Head/Face: Normocephalic, atraumatic. ENT: Moist Mucous membranes Respiratory: Respirations even and unlabored. No increased work of breathing. Talking in full sentences Skin: Warm, dry with normal turgor. Normal color. MS/ Extremity: Pulses equal, no cyanosis. Neurovascular intact. Full, normal range of motion. Neuro: Awake and alert, GCS 15, oriented to person, place, time, and situation. Moves all extremities. Normal gait. Psych: Awake, alert, with orientation to person, place and time. Behavior, mood, and affect are within normal limits. 10:53 Abdomen/GI: Inspection: abdomen appears normal, Bowel sounds: normal, in all quadrants, Palpation: soft, in all quadrants, moderate abdominal tenderness, in the anterior aspect of right lateral abdomen, right upper quadrant and right lower quadrant. Vital Signs: 10:35 BP 146 / 90; Pulse 73; Resp 18; Temp 98.6(TE); Pulse Ox 98% on R/A; Weight 81.65 kg; ab2 Height 5 ft. 2 in. (157.48 cm); Pain 10/10; 12:00 BP 182 / 109; Pulse 86; Resp 18; Pulse Ox 100% ; vg1 12:31 BP 170 / 117; Pulse 80; Resp 16; Pulse Ox 98% ; vg1 13:30 BP 167 / 105; Pulse 93; Resp 15; Pulse Ox 96% on 2 lpm NC; vg1 14:00 BP 171 / 111; Pulse 88; Resp 16; Pulse Ox 94% on 2 lpm NC; vg1 14:50 BP 173 / 105; Pulse 80; Resp 16; Pulse Ox 94% on 2 lpm NC; vg1 10:35 Body Mass Index 32.92 (81.65 kg, 157.48 cm) ab2 MDM: 10:33 Patient medically screened. kb 10:53 Data reviewed: vital signs, nurses notes. Data interpreted: Pulse oximetry: on room air kb is 98 %. Interpretation: normal. 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 15:05 ED course: Pt is asymptomatic of blood pressure. Pt did not take medications today, kb educated to take home BP meds when she gets home. 06/16 10:33 Order name: CBC with Diff; Complete Time: 12:16 kb 06/16 10:33 Order name: CMP; Complete Time: 11:18 kb 06/16 10:33 Order name: Lipase; Complete Time: 11:18 kb 06/16 10:33 Order name: CT Abd/Pelvis - IV Contrast Only; Complete Time: 11:50 kb 06/16 12:16 Order name: CBC Smear Scan; Complete Time: 12:16 EDMS 06/16 14:38 Order name: Urine Dipstick-Ancillary; Complete Time: 14:40 EDMS 06/16 10:33 Order name: IV Saline Lock; Complete Time: 10:47 kb 06/16 10:33 Order name: Labs collected and sent; Complete Time: 10:47 kb 06/16 10:33 Order name: Urine Dipstick-Ancillary (obtain specimen); Complete Time: 14:53 kb 06/16 11:54 Order name: US Abdomen Limited; Complete Time: 12:34 kb Administered Medications: 12:25 Drug: Zofran (Ondansetron) 4 mg Route: IVP; Site: left antecubital; vg1 13:30 Follow up: Response: No adverse reaction; Marked relief of symptoms vg1 12:25 Drug: NS 0.9% 1000 ml Route: IV; Rate: 1000 ml; Site: left antecubital; vg1 14:27 Follow up: IV Status: Completed infusion; IV Intake: 1000ml vg1 12:27 Drug: morphine 4 mg Route: IVP; Site: left antecubital; vg1 13:30 Follow up: Response: No adverse reaction; Marked relief of symptoms vg1 Disposition: 16:29 Co-signature as Attending Physician, Gene Medrano MD. rn Disposition Summary: 06/16/21 15:02 Discharge Ordered Location: Home kb Condition: Stable kb Diagnosis - Abdominal pain, Generalized kb Followup: kb - With: Emergency Department - When: As needed - Reason: Worsening of condition Followup: kb - With: Private Physician - When: 2 - 3 days - Reason: Recheck today's complaints, Continuance of care, Re-evaluation by your physician Discharge Instructions: - Discharge Summary Sheet kb - Abdominal Pain, Adult, [id number] kb Forms: - Medication Reconciliation Form kb - Thank You Letter kb - Antibiotic Education kb - Prescription Opioid Use kb Signatures: Dispatcher [employer] EDMA Kathy Kerns, CHINESE MEDICINE PRACTITIONER-C CHINESE MEDICINE PRACTITIONER-Eliseob Gene Medrano MD MD rn Garcia, Victoria RN RN [email or web address] Roly Zuluaga
[2021-06-16 16:19] VITALS: TEMP 98.6
[2021-06-16 16:25] VITALS: O2SAT 94
[2021-06-16 16:27] VITALS: BP 173/105
== END 2021-06-16 16:07 | disposition home or self-care (01) ==
LOC: ER 10:28
DX: R10.84 Generalized abdominal pain (principal); I10 Essential (primary) hypertension; F17.210 Nicotine dependence, cigarettes, uncomplicated
CPT/HCPCS: 36415; 74177; 76705; 80053; 81003; 83690; 85025; 96361; 96374; 96375; 99284; J2405; J7030; Q9967

== ENCOUNTER 2022-03-02 20:03 | Inpatient (IN) | payer SELFPAY ==
--- OUTSIDE RECORDS SUMMARY | 2022-03-02 20:08 | XMS REPORT | Continuity of Care Document ---
:1975 Author Organization [facility] t Address [address] [place] [address] Care Team Providers Name Role Phone No, Pcp [facility] Primary Care Physician Unavailable ZAIN SALAS Attending Clinician Unavailable SCOTT MCWILLIAMS Admitting Clinician Unavailable Problems Condition Condition Condition Status Onset Resolution Last Treating Co mments Source Name Details Category Date Date Treatment Clinician Date Acute Acute Disease Active 2018-[address] [facility] cholecysti cholecysti 04-20 [facility] 00:00: [facility] 00 [facility] Calculus Calculus Disease [facility] 2018[facility] gallbladde 00:00: Me dical r without r without 00 Cent er cholecysti cholecysti tis tis without without obstructio obstructio n n Transamini Transamini Disease Active 2018-[address] [facility] 04[facility]19 [facility] 00:[facility]: [facility] 00 [facility] Hypertensi Hypertensi Disease Active 2018-[address] [facility] 04[facility]19 [facility]: [facility] 00 [facility] Seizure Seizure Disease Active 2018-[address] [facility] disorder disorder 04-19 [facility] 00:[facility]: [facility] 00 [facility] Anemia Anemia Disease Active 2018-[address] [facility] [facility]- [facility]: [facility] 00 [facility] Thrombocyt Thrombocyt Disease Active 2018-[address] [facility]sis osis 2- [facility]: [facility] 00 Center Allergies, Adverse Reactions, Alerts Allergy Allergy Status Severity Reaction(s) Onset Inactive Treating Comm ents Source Name Type Date Date Clinician [facility] Drug Active Itching 2018-[address] [facility] Allergy 2- [facility]: [facility] 00 [facility] Fish Drug Active Swelling 2018-[address] [facility] [facility]aini Allergy 2- [facility] ng 00:00: Medical Products 00 Center Social History Social Habit Start Date Stop Date Quantity Comments Source History of tobacco 1992-02-16 Current some day [facility] use 00:00:00 smoker Medical Center History [facility] Alcohol Std Drinks Medica Center History [facility] Alcohol Comment Medical C enter Alcohol intake 2019-02-17 2019-02-[address] [facility] 00:00:00 00:00:00 non-drinker of Medical Ce nter alcohol (finding) History [facility] 2019-02-15 2019-02-[address] [facility] Alcohol Frequency 00:00:00 00:00:00 Medical Center History [facility] 2019-02-15 2019-02-[address] [facility] Alcohol Binge 00:00:00 00:00:00 Medical [facility] ter Cigarettes smoked 2019-02-15 2019-02-[address] [facility] current (pack per 00:00:00 00:00:00 [facility] Center day) - Reported Cigarette 2019-02-15 2019-02-[address] [facility] pack-years 00:00:00 00:00:00 [facility] Center Tobacco use and 2019-02-15 2019-02-[address] [facility] exposure 00:00:00 00:00:00 [facility] Center Sex Assigned At [address] [address] Iqra kes 00:00:00 00:00:00 [facility] Center Smoking Status Start Date Stop Date Source Current some day smoker 2019-02-15 00:00:00 [facility] Medications Ordered Filled Start Stop Current Ordering Indication Dosage Frequency Signature Comments Components Source Medication Medication Date Date Medication? Clinician (SIG) Name Name divalproex 2018-03 Yes epilepsy 125mg QD Take [address] [facility] (DEPAKOTE) 2-04 mg by [facility] 125 MG EC 10:36: mouth Medical tablet 04 daily. Center famotidine 2018-03 Yes 1{tbl} Take [address] [facility] (PEPCID) 20 1-30 tablet by Reyna es MG tablet 00:00: mouth Medical 00 every 12 Center (twelve) hours. Procedures This patient has no known procedures. Plan of Care Planned Activity Planned Date Details Comments Source Future Scheduled 2021-11-16 INFLUENZA VACCINE (#1) [facility] 00:00:00 [code = INFLUENZA Medical Ce nter VACCINE (#1)] Future Scheduled 2021 Lipid panel (procedure) [facility] Test 00:00:00 [code = 32850766] Medical Ce nter Future Scheduled 2021-03-[address] [facility] Test 00:00:00 (12+) [code = Medical Center DEPRESSION SCREENING (12+)] Future Scheduled 2020-02-[address] [facility] Test 00:00:00 Counseling and Medical Cente r Screening (12+) [code = Tobacco Cessation Counseling and Screening (12+)] Future Scheduled 1997 Screening for malignant [facility] Test 00:00:00 neoplasm of cervix Medical C enter (procedure) [code = 098457437] Future Scheduled 1995 DTAP/TDAP/TD VACCINES [facility] 00:00:00 (1 - Tdap) [code = Medical C enter DTAP/TDAP/TD VACCINES (1 - Tdap)] Future Scheduled 1994 HEPATITIS C SCREENING [facility] 00:00:00 [code = HEPATITIS C Medical Center SCREENING] Future Scheduled [address] [facility] Test 00:00:00 0-64 YRS (1 - PCV) Medical C enter [code = PNEUMOCOCCAL VACCINE 0-64 YRS (1 - PCV)] Future Scheduled 1975 COVID-19 VACCINE (#1) [facility] 00:00:00 [code = COVID-[address] VACCINE (#1)] Future Scheduled 1976 CT Colonography (combo) [facility] Test 00:00:00 [code = CT Colonography [facility] (combo)] Future Scheduled 1976 Screening for malignant [facility] Test 00:00:00 neoplasm of colon Medical Ce nter (procedure) [code = 747595828] Future Scheduled 1976 Screening for malignant [facility] Test 00:00:00 neoplasm of colon Medical Ce nter (procedure) [code = 977442229] Future Scheduled 1976 Screening for malignant [facility] Test 00:00:00 neoplasm of colon Medical Ce nter (procedure) [code = 488125241] Future Scheduled 1976 Screening for malignant [facility] Test 00:00:00 neoplasm of colon Medical Ce nter (procedure) [code = 365956237] Future Scheduled 1975 Sigmoidoscopy [code = [facility] Test 00:00:00 Sigmoidoscopy] Medical Nargis r Results Test Description Test Time Test Comments Results Result Comments Source TISSUE EXAM 2019-02-19 Surgical Pathology 12:09:00 Report Case: [id number] Authorizing Provider: Trudy James MD Collected: 02/17/2019 1126 Ordering Location: [address] Received: 02/17/2019 1147 Service Pathologist: Angela Beach MD Specimen: Gallbladder A. GALLBLADDER, CHOLECYSTECTOMY: - CHRONIC CHOLECYSTITIS WITH CHOLELITHIASIS. Signing Pathologist Direct Phone Line: [phone] deana signed by Angela Beach MD on 02/19/2019 at 12:09 [id number] renal mass Gallbladder Received in formalin labeled [...] trabeculated. The wall measures 0.2 cm thick. Lumber Salvager sections are submitted in A1-A2, with the inked proximal margin is A1. PA/ew Performed.[facility], Department of Pathology, [address] [place] [id number], [facility], [address] [place] [address], [facility], [facility] of [facility], [address] [place] [id number], CBC W/PLT COUNT & AUTO DIFFERENTIAL 2019-02-18 [...] 1 % 0-1 = 2801) BASIC METABOLIC [id number] 06:57:00 Test Item Value Reference Range Interpretation [...] APPLICABLE FOR DIALYSIS PATIEN TS. HEPATIC FUNCTION [id number] 06:57:00 Test Item Value Reference Range Interpretation [...] (test code = 347) hemolyzed HEPATIC FUNCTION [id number] 06:57:00 Test Item Value Reference Range Interpretation [...] 72 U/L 6-55 H 347) BASIC METABOLIC [id number] 06:57:00 Test Item Value Reference Range Interpretation [...] PATIEN TS. CBC W/PLT COUNT & AUTO [id number] 06:28:00 Test Item Value Reference Range Interpretation [...] PERCENT (BEAKER) (test code = 2801) SCREEN, [id number] 07:28:00 Test Item Value Reference Range Interpretation Comments TEST URINE (BEAKER) (test Negative code = 583) [id number] 07:28:00 Test Item Value Reference Range Interpretation Comments MAGNESIUM (BEAKER) 2.0 mg/dL 1.6-2.6 Specimen moderately (test code = 627) hemolyzed [id number] 07:28:00 Test Item Value Reference Range Interpretation Comments PHOSPHORUS (BEAKER) 4.0 mg/dL 2.3-4.7 Specimen moderately (test code = 604) hemolyzed BASIC METABOLIC [id number] 07:28:00 Test Item Value Reference Range Interpretation [...] APPLICABLE FOR DIALYSIS PATIEN TS. HEPATIC FUNCTION [id number] 07:28:00 Test Item Value Reference Range Interpretation [...] Specimen moderately (test code = 347) hemolyzed [id number] 07:28:00 Test Item Value Reference Range Interpretation Comments LIPASE (BEAKER) (test code = 749) 31 U/L 8-78 CBC W/PLT COUNT & AUTO [id number] 07:10:00 Test Item Value Reference Range Interpretation [...] (BEAKER) (test code = 2801) U/S, ABDOMINAL, [id number] 23:50:00Abdomen limited area? Add comment if clarification [...] patent. Impression: Cholelithiasis without sonographic evidence of acutecholecystitis. No extrahepatic ductal dilatation or visualized choledocholithiasis. . Signed: Latasha Olvera MDReport Verified Date/Time: 02/15/2019 23:50:53 URINALYSIS W/ REFLEX URINE [id number] 22:43:00 Test Item Value Reference Range Interpretation [...] SOURCE(BEAKER) (test code = 2795) HEPATIC FUNCTION [id number] 17:03:00 Test Item Value Reference Range Interpretation [...] Specimen slightly (test code = 347) hemolyzed [id number] 16:00:00 Test Item Value Reference Range Interpretation Comments MAGNESIUM (BEAKER) 2.1 mg/dL 1.6-2.6 Specimen slightly (test code = 627) hemolyzed BASIC METABOLIC [id number] 16:00:00 Test Item Value Reference Range Interpretation [...] hemolyz ed (test code = 364) PROTHROMBIN [id number] 15:31:00 Test Item Value Reference Range Interpretation [...] is 2.5-3.5 for patients wiht mechanical heart valves.[id number] 15:31:00 Test Item Value Reference Range Interpretation Comments PARTIAL THROMBOPLASTIN TIME 31.4 seconds 22.5-36.0 (BEAKER) (test code = 760) CBC W/PLT COUNT & AUTO [id number] 15:14:00 Test Item Value Reference Range Interpretation [...]
[2022-03-02 21:13] LABS: Absolute Lymphocytes (CBC) 0.7 K/uL (0.7-4.9); Hematocrit 34.2 % (36.0-45.0); Lymphocytes % 7.9 % (15.3-44.8); MCV 80.6 fL (80-100); MPV 6.6 fL (7.6-11.3); RBC Red Blood Cell Count 4.24 M/uL (3.86-4.86)
[2022-03-02 21:20] LABS: Anisocytosis 1+; Blood Morphology Comment NOTED (NOT SEEN); Platelet Estimate ADEQ; White Blood Cell Scan OK (OK)
[2022-03-02 21:21] LABS: Protime INR 1.11
[2022-03-02 21:41] LABS: Urine Blood Trace-lysed (Negative); Urine Glucose Negative (Negative); Urine Protein 2+ (Negative); Urine Specific Gravity >=1.030 (1.005-1.030)
[2022-03-02 21:43] LABS: ALT/SGPT 27 U/L (13-56); AST/SGOT 31 U/L (15-37); Albumin 3.7 g/dL (3.4-5.0); Alkaline Phosphatase 206 U/L (45-117); BUN Blood Urea Nitrogen 15 mg/dL (7-18); Bicarbonate 27 mmol/L (21-32); Bilirubin Direct 0.3 mg/dL (0-0.2); Bilirubin Total 0.8 mg/dL (0.2-1.0); Glomerular Filtration Rate 46 ml/min (=/>90); Glucose Level 85 mg/dL (74-106); NT PRO-BNP 5532 pg/mL (<125); Potassium 3.8 mmol/L (3.5-5.1); Sodium Level 136 mmol/L (136-145); Troponin High Sensitivity 56.5 pg/mL (<58.9)
[2022-03-02 21:52] LABS: Urine Specific Gravity/Preg >1.030 (1.005-1.030)
[2022-03-02 22:03] LABS: Urine Bacteria <20 /HPF (<20); Urine Mucus Slight /HPF (None Seen); Urine RBC <5 /HPF (None Seen)
[2022-03-02 22:04] LABS: Barbiturates NEGATIVE (NEGATIVE); Benzodiazepines NEGATIVE (NEGATIVE); Cocaine NEGATIVE (NEGATIVE); METHAMPHETAM POSITIVE (NEGATIVE); Methadone NEGATIVE (NEGATIVE); Opiates NEGATIVE (NEGATIVE); Phencyclidine NEGATIVE (NEGATIVE); THC Cannibis NEGATIVE (NEGATIVE)
--- NOTE | 2022-03-02 22:27 | RAD REPORT ---
EXAM DESCRIPTION: CT - Head C Spine Cap W Con - 03/02/2022 10:12 pm CLINICAL HISTORY: Trauma, head and neck injury. Chest, abdomen and pelvis pain. seizure, back pain COMPARISON: Chest For Pe Angio dated 01/07/2021; Abdomen Pelvis W Contrast dated 02/10/2019; Abdom en Pelvis W Contrast dated 02/13/2019 TECHNIQUE: CT head without contrast. CT cervical spine without contrast with coronal and sagittal reformatted images. CT chest, abdomen and pelvis with IV contrast (approximately 100 mL nonionic IV contrast) with bernal l and sagittal reformatted images of the spine. All CT scans are performed using dose optimization technique as appropriate and may include automated exposure control or mA/KV adjustment according to patient size. FINDINGS: CT HEAD WITHOUT CONTRAST: No intracranial hemorrhage, hydrocephalus or extra-axial fluid collection. No areas of brain edema o r midline shift. The paranasal sinuses and mastoids are clear. The calvarium is intact. CT CERVICAL SPINE WITHOUT CONTRAST: No fracture or subluxation. The prevertebral soft tissues are normal in thickness. CT CHEST, ABDOMEN, PELVIS WITH CONTRAST: The lungs are clear.Mildly prominent lymph nodes are seen in the AP window of the mediastinum, sub- c arinal region and both boubacar.No pneumothorax or pericardial/pleural fluid. No evidence of intra-abdominal visceral injury, free fluid or free air. Mildly prominent lymph nodes are seen in the para- aortic region and small bowel mesenteric root. Cholecystectomy. Atrophic right kidney. No fractures. IMPRESSION: Negative for acute traumatic findings. Mild lymphadenopathy seen in the chest and abdomen as detailed of unclear etiology. A follow-up exami nation may be useful in 6 months for surveillance purposes.
[2022-03-02] MEDS ORDERED: HYDRALAZINE HCL 20 MG/ML VIAL ONE (22:54)
[2022-03-03] MEDS ORDERED: ALBUTEROL 2.5 MG/3 ML NEB SOL ONE (00:04)
[2022-03-03] MEDS ORDERED: IPRATROPIUM BROM 0.5MG/2.5ML ONE (00:04)
[2022-03-03] MEDS ORDERED: METHYLPREDNISOLONE 125 MG INJ ONE (00:04)
--- NOTE | 2022-03-03 01:00 | EDPHYS ---
Physician Documentation [facility] Name: Geetha Khan Age: 46 yrs Sex: Female : 1975 Arrival Date: 03/02/2022 Time: 20:26 Bed 13 Private MD: ED Physician Michael Grimm HPI: 03/02 20:33 This 46 yrs old Female presents to ER via EMS with complaints of Seizure. cp 20:33 The patient presents after having a single isolated seizure, that lasted an unknown cp period of time, the episode(s) was witnessed, by family, father. Character of seizure(s): Loss of consciousness: the patient experienced loss of consciousness. Seizure onset: just prior to arrival. Context: occurred at home. Seizure Hx: known seizure disorder with patient reportedly not taking prescribed seizure medication. Associated injury: The patient did not suffer any apparent associated injury. 20:33 EMS care: supplemental oxygen. cp 20:33 Current symptoms: confusion. cp Historical: - Allergies: 20:39 No Known Allergies; ke1 - PMHx: 20:39 Asthma; COPD; Hypertension; Seizures; Thyroid problem; ke1 - PSHx: 20:39 Tonsillectomy; ke1 - Immunization history:: Adult Immunizations Client reports receiving the 2nd dose of the Covid vaccine. - Social history:: Smoking status: Patient reports the use of cigarette tobacco products, smokes one-half pack cigarettes per day. ROS: 20:35 Constitutional: Negative for body aches, chills, fever, poor PO intake. cp 20:35 Eyes: Negative for injury, pain, redness, and discharge. cp 20:35 Cardiovascular: Negative for chest pain. cp 20:35 ENT: Negative for drainage from ear(s), ear pain, sore throat, difficulty swallowing, cp difficulty handling secretions. 20:35 Respiratory: Negative for cough. 20:35 Abdomen/GI: Negative for abdominal pain, vomiting, diarrhea, constipation. 20:35 : Negative for urinary symptoms. 20:35 Skin: Negative for rash. 20:35 Neuro: Positive for history of seizure, Negative for headache. 20:35 All other systems are negative. Exam: 20:35 ECG was reviewed by the Attending Physician. cp 20:40 Constitutional: The patient appears in no acute distress, alert, awake, cp non-diaphoretic, non-toxic, well developed, well nourished. 20:40 Head/Face: Normocephalic, atraumatic. cp 20:40 Eyes: Periorbital structures: appear normal, Pupils: equal, round, and reactive to light and accomodation, Conjunctiva: normal, no exudate, no injection, Sclera: no appreciated abnormality, Lids and lashes: appear normal, bilaterally. 20:40 ENT: External ear(s): are unremarkable, Nose: is normal, Mouth: Lips: moist, Oral mucosa: moist, Posterior pharynx: Airway: no evidence of obstruction, patent, erythema, is not appreciated, exudate, is not appreciated. 20:40 Neck: C-spine: vertebral tenderness, is not appreciated, crepitus, is not appreciated. 20:40 Chest/axilla: Inspection: normal. 20:40 Cardiovascular: Rate: normal, Rhythm: regular, Edema: is not appreciated, JVD: is not appreciated. 20:40 Respiratory: the patient does not display signs of respiratory distress, Respirations: normal, no use of accessory muscles, no retractions, labored breathing, is not present, Breath sounds: are clear throughout, no decreased breath sounds, no stridor. 20:40 Abdomen/GI: Inspection: abdomen appears normal, Bowel sounds: active, all quadrants, Palpation: abdomen is soft and non-tender, in all quadrants. 20:40 Back: pain, of the mid back area, ROM is painful, with all movement. 20:40 Musculoskeletal/extremity: Exam is negative for decreased range of motion, deformity, injury. 20:40 Neuro: Orientation: to person, Mentation: able to follow commands, slow to respond. Vital Signs: 20:30 BP 193 / 113; Pulse 85; Resp 19; Temp 97.6(O); Pulse Ox 98% on 4 lpm NC; Weight 77.11 ke1 kg; Height 5 ft. 2 in. (157.48 cm); Pain 0/10; 21:58 BP 210 / 121; Pulse 82; Resp 17; Pulse Ox 95% on R/A; ke1 23:39 BP 137 / 94; Pulse 91; Resp 17; Pulse Ox 100% ; Pain 0/10; ke1 1217 00:15 BP 110 / 66; Pulse 83; Resp 16; Temp 97.8; Pulse Ox 100% ; Pain 0/10; ke1 00:39 BP 155 / 98; Pulse 87; Resp 17; Pulse Ox 100% ; Pain 0/10; ke1 01:30 BP 158 / 103; Pulse 94; Resp 16; Temp 98(O); Pulse Ox 97% ; Pain 0/10; ke1 02:22 BP 164 / 111; Pulse 83; Resp 16; Temp 98; Pulse Ox 97% ; ke1 02:48 BP 151 / 84; Pulse 87; Resp 19; Pulse Ox 100% on R/A; Pain 0/10; ke1 03/02 20:30 Body Mass Index 31.09 (77.11 kg, 157.48 cm) ke1 [place] Coma Score: 03/02 20:30 Eye Response: spontaneous(4). Verbal Response: oriented(5). Motor Response: obeys ke1 commands(6). Total: 15. MDM: 20:29 Patient medically screened. juan diego 21:00 Differential diagnosis: cerebral vascular accident, drug overdose, cardiac arrhythmia, cp seizure, trauma. 03/03 01:00 Data reviewed: vital signs, nurses notes, lab test result(s), EKG, radiologic studies, cp CT scan. 01:00 Test interpretation: by ED physician or midlevel provider: ECG. Counseling: I had a cp detailed discussion with the patient and/or guardian regarding: the historical points, exam findings, and any diagnostic results supporting the discharge/admit diagnosis, the presence of at least one elevated blood pressure reading (>120/80) during this emergency department visit, lab results, radiology results, the need for further work-up and treatment in the hospital. Physician consultation: Kalli Bradshaw PA-C was contacted at 01:00, regarding admission, to the telemetry unit. patient's condition. 03/02 20:29 Order name: Acetaminophen; Complete Time: 22:24 cp 03/02 20:29 Order name: Basic Metabolic Panel; Complete Time: 22:24 cp 03/02 22:25 Interpretation: Normal except: CRE 1.44; GFR 46. cp 03/02 20:29 Order name: CBC with Diff; Complete Time: 22:24 cp 03/02 22:25 Interpretation: Normal except: HGB 11.1; HCT 34.2; MCH 26.1; RDW 20.4; MPV 6.6; MONI% cp 84.1; LYM% 7.9. 16 20:29 Order name: ETOH Level; Complete Time: 22:24 /16 20:29 Order name: Hepatic Function; Complete Time: 22:24 /16 20:29 Order name: PT-INR; Complete Time: 22:24 /16 20:29 Order name: Ptt, Activated; Complete Time: 22:24 16 20:29 Order name: Salicylate; Complete Time: 22:24 /16 20:29 Order name: Urine Drug Screen; Complete Time: 22:24 12/16 22:25 Interpretation: Normal except: METHAMPHETAMINE POSITIVE. /16 20:29 Order name: Troponin High Sensitivity; Complete Time: 22:24 12/16 22:26 Interpretation: Troponin HS 56.5; Reviewed. cp /16 20:29 Order name: BNP; Complete Time: 22:24 /16 23:55 Interpretation: Abnormal: NT PRO-BNP 5532. 03/02 20:29 Order name: Urine Microscopic Only; Complete Time: 22:24 16 21:20 Order name: CBC Smear Scan; Complete Time: 22:24 EDMS 16 21:41 Order name: Urine Dipstick-Ancillary; Complete Time: 22:24 EDNE 16 20:29 Order name: EKG; Complete Time: 20:30 /16 20:29 Order name: EKG - Nurse/Tech; Complete Time: 20:44 16 20:29 Order name: IV Saline Lock; Complete Time: 21:02 /16 20:29 Order name: Labs collected and sent; Complete Time: 21:02 16 20:29 Order name: Suicide Screening ([place]); Complete Time: 20:44 /16 20:29 Order name: Urine Dipstick-Ancillary (obtain specimen); Complete Time: 21:44 /16 20:29 Order name: Urine Test (obtain specimen); Complete Time: 21:44 /16 20:29 Order name: CT Traumagram (Head C Spine CAP W Con); Complete Time: 22:31 16 21:43 Order name: Urine --Ancillary (enter results); Complete Time: 22:24 03/03 00:01 Order name: Troponin High Sensitivity; Complete Time: 00:55 cp 03/03 01:08 Order name: SARS RAPID; Complete Time: 01:57 ke1 03/03 01:15 Order name: Glucose, Ancillary Testing; Complete Time: 01:34 EDMS EC/16 20:35 Rate is 77 beats/min. Rhythm is regular. MN interval is normal. QRS interval is normal. cp QT interval is normal. T waves are Inverted in leads I, aVL, V6. Interpreted by me. Reviewed by me. Administered Medications: 23:01 Drug: hydrALAZINE 10 mg Route: IVP; Site: left antecubital; ke1 23:40 Follow up: Response: Blood pressure is lowered ke1 03/03 00:15 Drug: SOLU-Medrol (methylPrednisoLONE) 125 mg Route: IVP; Site: left antecubital; ke1 00:43 Follow up: Response: Marked relief of symptoms ke1 00:15 Drug: Albuterol - atroVENT (ipratropium) (3:1) (2.5 mg - 0.5 mg) 3 ml Route: Nebulizer; ke1 00:42 Follow up: Response: No adverse reaction ke1 01:00 Drug: Aspirin Chewable Tablet 324 mg Route: PO; ke1 02:49 Follow up: Response: No adverse reaction ke1 Disposition Summary: 03/03/22 00:59 Hospitalization Ordered Hospitalization Status: Observation cp Provider: Flo Gan cp Location: Telemetry/MedSurg (observation) cp Condition: Stable cp Problem: new cp Symptoms: have improved cp Bed/Room Type: Standard Room Assignment: 404(03/03/22 02:11) Diagnosis - Other seizures cp - Hypertensive heart disease without heart failure cp Forms: - Medication Reconciliation Form cp - SBAR form cp Signatures: Dispatcher [employer] EDMS Teresa Rodriguez RN RN mw Anderson, Corey, MD MD cha Page, Corey, PA PA cp Ebrottie, Kouassi, RN RN ke1 Brown, Sophia, PA-C PAHermes sb4 Corrections: (The following items were deleted from the chart) 02:11 00:59 cp mw
--- NOTE | 2022-03-03 01:00 | ER ---
Nurse's Notes [facility] Name: Geetha Khan Age: 46 yrs Sex: Female : 1975 Arrival Date: 03/02/2022 Time: 20:26 Bed 13 Private MD: Diagnosis: Other seizures;Hypertensive heart disease without heart failure Presentation: 03/02 20:20 Chief complaint: EMS states: Seizure during shower,SOB o2 85 on RA and disorientation ke1 on EMS arrival, patient did not take seizure and BP meds today. Coronavirus screen: Vaccine status: Patient reports receiving the 2nd dose of the covid vaccine. Ebola Screen: No symptoms or risks identified at this time. 20:20 Method Of Arrival: EMS ke1 20:30 Initial Sepsis Screen: Does the patient meet any 2 criteria? No. Patient's initial ke1 sepsis screen is negative. Does the patient have a suspected source of infection? No. Patient's initial sepsis screen is negative. Risk Assessment: Do you want to hurt yourself or someone else? Patient reports no desire to harm self or others. Onset of symptoms was March 02, 2022 at 20:00. 20:30 Acuity: CORRINA 3 ke1 Triage Assessment: 20:30 Pain: Denies pain. Neuro: [place] Agitation-Sedation Scale (RASS): 0 - Alert and Calm ke1 Level of Consciousness is awake, alert, obeys commands, Oriented to person, place, time, situation, Seizure activity Patient is post-ictal at this time. Respiratory: Airway is patent Trachea Respiratory effort is even, unlabored, Respiratory pattern is regular, symmetrical. 20:41 General: Appears in no apparent distress. Behavior is appropriate for age. ke1 Historical: - Allergies: 20:39 No Known Allergies; ke1 - PMHx: 20:39 Asthma; COPD; Hypertension; Seizures; Thyroid problem; ke1 - PSHx: 20:39 Tonsillectomy; ke1 - Immunization history:: Adult Immunizations Client reports receiving the 2nd dose of the Covid vaccine. - Social history:: Smoking status: Patient reports the use of cigarette tobacco products, smokes one-half pack cigarettes per day. Screenin:40 Abuse screen: Denies threats or abuse. Fall Risk No fall in past 12 months (0 pts). ke1 Secondary diagnosis (15 points) seizures, No IV (0 pts). Ambulatory Aid- None/Bed Rest/Nurse Assist (0 pts). Gait- Normal/Bed Rest/Wheelchair (0 pts) Mental Status- Oriented to own ability (0 pts). Total Quintero Fall Scale indicates No Risk (0-24 pts). 20:42 [facility] ED Fall Risk Assessment (Adult) History of falling in the last 3 months, ke1 including since admission No falls in past 3 months (0 pts) Confusion or Disorientation No (0 pts) Intoxicated or Sedated No (0 pts) Impaired Gait No (0 pts) Mobility Assist Device Used No (0 pt) Altered Elimination No (0 pt) Score/Fall Risk Level 0 - 2 = Low Risk Oriented to surroundings, Maintained a safe environment, Educated pt \T\ family on fall prevention, incl call for assistance when getting out of bed, Assessed \T\ reinforced patient's understanding of fall precautions, Provided non-skid footwear. Humpty Dumpty Scale Fall Assessment Tool (age< 18yrs) Age 13 years and above (1 pt) Gender Female (1 pt) Diagnosis Neurological diagnosis (4 pts) Cognitive Impairments Oriented to own ability (1 pt) Environmental Factors Outpatient area (1 pt) Response to Surgery/Sedation/Anesthesia More than 48 hours/ None (1 pt) Medication Usage Other medications/ None (1 pt) Fall Risk Score/ Level High Fall Risk: >/= 12 points Oriented to surroundings, Educated pt \T\ family on fall prevention, incl. call for assistance when getting out of bed. Nutritional screening: No deficits noted. Tuberculosis screening: No symptoms or risk factors identified. 21:00 Humpty Dumpty Scale Fall Assessment Tool (age< 18yrs) Age Gender Diagnosis Cognitive ke1 Impairments Environmental Factors Response to Surgery/Sedation/Anesthesia Medication Usage Fall Risk Score/ Level Low Fall Risk: </= 11 points Oriented to surroundings, Maintained a safe environment: Age specific bed with railing, Bed in low position\T\ wheels locked, Assess need for siderail use, Locks on, Rm \T\ paths clutter \T\ obstacle free, Proper lighting, Call light, personal item w/in reach, Alarms as needed, Provided non-skid footwear, Hourly rounding (assess needs \T\ fall precautionary measures). Assessment: 22:00 Reassessment: Patient denies pain at this time. Patient states feeling better. Patient ke1 states symptoms have improved. 03/03 02:42 Reassessment: Waiting classification counselor back from 4th floor nurse. ke1 02:48 Reassessment: Patient states feeling better. Patient states symptoms have improved. ke1 Vital Signs: 03/02 20:30 BP 193 / 113; Pulse 85; Resp 19; Temp 97.6(O); Pulse Ox 98% on 4 lpm NC; Weight 77.11 ke1 kg; Height 5 ft. 2 in. (157.48 cm); Pain 0/10; 21:58 BP 210 / 121; Pulse 82; Resp 17; Pulse Ox 95% on R/A; ke1 23:39 BP 137 / 94; Pulse 91; Resp 17; Pulse Ox 100% ; Pain 0/10; ke1 03/03 00:15 BP 110 / 66; Pulse 83; Resp 16; Temp 97.8; Pulse Ox 100% ; Pain 0/10; ke1 00:39 BP 155 / 98; Pulse 87; Resp 17; Pulse Ox 100% ; Pain 0/10; ke1 01:30 BP 158 / 103; Pulse 94; Resp 16; Temp 98(O); Pulse Ox 97% ; Pain 0/10; ke1 02:22 BP 164 / 111; Pulse 83; Resp 16; Temp 98; Pulse Ox 97% ; ke1 02:48 BP 151 / 84; Pulse 87; Resp 19; Pulse Ox 100% on R/A; Pain 0/10; ke1 03/02 20:30 Body Mass Index 31.09 (77.11 kg, 157.48 cm) ke1 [place] Coma Score: 03/02 20:30 Eye Response: spontaneous(4). Verbal Response: oriented(5). Motor Response: obeys ke1 commands(6). Total: 15. ED Course: 20:26 Patient arrived in ED. wm 20:27 Michael Nguyen PA is PHCP. cp 20:27 Michael Grimm MD is Attending Physician. cp 20:32 Rick Montanez RN is Primary Nurse. ke1 20:39 Triage completed. ke1 20:42 Arm band placed on left wrist. ke1 20:44 Placed in gown. Bed in low position. Call light in reach. Seizure precautions initiated.ke1 21:02 Inserted saline lock: 20 gauge in left antecubital area, using aseptic technique. ke1 21:02 Troponin High Sensitivity Sent. ke1 21:02 BNP Sent. ke1 21:02 Salicylate Sent. ke1 21:02 PT-INR Sent. ke1 21:02 Ptt, Activated Sent. ke1 21:02 Hepatic Function Sent. ke1 21:02 ETOH Level Sent. ke1 21:02 CBC with Diff Sent. ke1 21:02 Basic Metabolic Panel Sent. ke1 21:02 Acetaminophen Sent. ke1 22:14 CT Traumagram (Head C Spine CAP W Con) In Process Unspecified. EDMS 03/03 00:15 Troponin High Sensitivity Sent. ke1 00:58 Flo Gan MD is Hospitalizing Provider. cp 03:03 No provider procedures requiring assistance completed. Patient admitted, IV remains in ke1 place. Administered Medications: 03/02 23:01 Drug: hydrALAZINE 10 mg Route: IVP; Site: left antecubital; ke1 23:40 Follow up: Response: Blood pressure is lowered ke1 03/03 00:15 Drug: SOLU-Medrol (methylPrednisoLONE) 125 mg Route: IVP; Site: left antecubital; ke1 00:43 Follow up: Response: Marked relief of symptoms ke1 00:15 Drug: Albuterol - atroVENT (ipratropium) (3:1) (2.5 mg - 0.5 mg) 3 ml Route: Nebulizer; ke1 00:42 Follow up: Response: No adverse reaction ke1 01:00 Drug: Aspirin Chewable Tablet 324 mg Route: PO; ke1 02:49 Follow up: Response: No adverse reaction ke1 Medication: 03:04 VIS not applicable for this client. ke1 Outcome: 00:59 Decision to Hospitalize by Provider. cp 03:03 Admitted to Med/surg accompanied by tech. ke1 03:03 Condition: good 03:03 Instructed on the need for admit. 03:04 Patient left the ED. ke1 Signatures: Dispatcher [employer] EDAR Michael Nguyen PA PA cp Marsh, Wendy wm Ebrottie, Kouassi RN RN ke1 Corrections: (The following items were deleted from the chart) 03/02 21:01 20:40 Fall Risk Fall in past 12 months (25 points). Secondary diagnosis (15 points) ke1 seizures, No IV (0 pts). Ambulatory Aid- None/Bed Rest/Nurse Assist (0 pts). Gait- Normal/Bed Rest/Wheelchair (0 pts) Mental Status- Oriented to own ability (0 pts). Total Quintero Fall Scale indicates Low Risk Score (25-44 pts). Fall prevention measures have been instituted. Side Rails Up X 2 Frequent Obs/Assesments occuring Family Present and informed to notify staff if they need to leave bedside ke1 21:01 20:42 [facility] ED Fall Risk Assessment (Adult) History of falling in the last 3 months, ke1 including since admission Yes- physiologic fall (2 pts) Confusion or Disorientation No (0 pts) Intoxicated or Sedated No (0 pts) Impaired Gait No (0 pts) Mobility Assist Device Used No (0 pt) Altered Elimination No (0 pt) Score/Fall Risk Level 3 or more points = High Risk Oriented to surroundings, Maintained a safe environment, Educated pt \T\ family on fall prevention, incl call for assistance when getting out of bed, Assessed \T\ reinforced patient's understanding of fall precautions, Provided non-skid footwear, Hourly rounding (assess needs \T\ fall precautionary measures) done, Offered frequent toileting (1:1 observation), Remained with patient while ambulating, ke1
[2022-03-03 01:56] LABS: SARS-CoV-2 Antigen Rapid Res Negative (Negative)
--- NOTE | 2022-03-03 02:03 | P.HP ---
Certification for Inpatient Patient admitted to: Observation With expected LOS: <2 Midnights Patient will require the following post-hospital care: None Practitioner: I am a practitioner with admitting privileges, knowledge of patient current condition, hospital course, and medical plan of care. Services: Services provided to patient in accordance with Admission requirements found in Title 42 Section 412.3 of the Code of Federal Regulations Patient History Date of Service: 03/03/22 Reason for admission: ACS Rule Out History of Present Illness: Patient is a 46-year-old female with past medical history of hypertension, COPD, seizure disorder, diastolic CHF, and morbid obesity who presented to the ED following a subjective seizure. Patient reports that she did not take her antihypertensives or seizure medication today and seized while she was in the shower. EMS reports that she was disoriented when they arrived and saturating 85% on room air. CT traumagram was negative. Her labs are significant for creatinine 1.4, hemoglobin 11.1, alk phos 206, BNP 5500, troponin 56 with repeat of 84. Patient denies chest pain. EKG with nonspecific changes. She was also very hypertensive, max of 210/121. She was given hydralazine, breathing treatment, aspirin in the ED. ED provider wishes for patient for observation, for ACS rule out. Allergies No Known Drug Allergies Allergy (Verified 01/06/21 20:27) Unknown Home medications list reviewed: Yes Home Medications: Amlodipine [Norvasc*] 10 mg PO DAILY #30 tab 01/08/21 Ferrous Sulfate [Ferrous Sulfate*] 325 mg PO BID #60 tab 01/08/21 Fluticasone/Salmeterol [Advair 250-50 Diskus] 1 each IH BID #60 blst.w.dev Sennosides [Senokotxtra] 17.2 mg PO BID #120 tablet 01/08/21 predniSONE [Deltasone] 40 mg PO DAILY #5 tab 01/08/21 traMADol HCL [Ultram*] 50 mg PO Q6H PRN #20 tab 01/08/21 - Past Medical/Surgical History Diabetic: No -: Hypertension -: Thyroid disease -: COPD -: Seizure disorder -: CHF -: Tonsillectomy Psychosocial/ Personal History: Patient is . - Family History Family History: Reviewed- Non-Contributory - Social History Smoking Status: Current every day smoker Alcohol use: No CD- Drugs: No Caffeine use: Yes Review of Systems Unremarkable Physical Examination - Vital Signs Temperature: 97.8 F Blood Pressure: 155/98 Pulse: 87 Respirations: 17 Pulse Ox (%): 100 - Physical Exam General: Alert, In no apparent distress, Obese HEENT: Atraumatic, PERRLA, EOMI, Sclerae nonicteric Neck: Supple, 2+ carotid pulse no bruit Respiratory: Clear to auscultation bilaterally, Normal air movement Cardiovascular: Regular rate/rhythm, Normal S1 S2 Gastrointestinal: Normal bowel sounds, No tenderness Musculoskeletal: No tenderness Integumentary: No rashes Neurological: Normal speech, Normal strength at 5/5 x4 extr, Normal tone, Normal affect - Studies Laboratory Data (last 24 hrs) 03/02/22 21:00: PT 12.2, INR 1.11, APTT 31.9 03/02/22 21:00: WBC 8.80, Hgb 11.1 L, Hct 34.2 L, Plt Count 237 03/02/22 21:00: Sodium 136, Potassium 3.8, BUN 15, Creatinine 1.44 H, Glucose 85, Total Bilirubin 0.8, AST 31, ALT 27, Alkaline Phosphatase 206 H Assessment and Plan - Problems (Diagnosis) (1) Elevated troponin Current Visit: Yes Status: Acute (2) CHF (congestive heart failure) Current Visit: Yes Status: Chronic Qualifiers: Heart failure chronicity: chronic (3) COPD (chronic obstructive pulmonary disease) Current Visit: Yes Status: Chronic Qualifiers: COPD type: unspecified COPD Qualified Code(s): J44.9 - Chronic obstructive pulmonary disease, unspecified (4) Methamphetamine abuse Current Visit: Yes Status: Chronic (5) Anemia Current Visit: Yes Status: Chronic Qualifiers: Anemia type: due to chronic kidney disease Chronic kidney disease stage: stage 3 (moderate) Chronic kidney disease stage 3 subtype: stage 3a (GFR 45- 59) Qualified Code(s): N18.31 - Chronic kidney disease, stage 3a; D63.1 - Anemia in chronic kidney disease (6) Hypertension Current Visit: Yes Status: Chronic Qualifiers: Hypertension type: primary hypertension Qualified Code(s): I10 - Essential (primary) hypertension (7) Morbid obesity Current Visit: Yes Status: Chronic (8) Seizure disorder Current Visit: Yes Status: Chronic - Plan Place under observation for ACS rule out. Trend serial cardiac enzymes. Obtain echocardiogram. Blood pressure control. Hydralazine PRN BP spikes. Unclear if patient had seizure or not. UDS positive for methamphetamines. Per chart review, she has history of substance abuse. Monitor and replete electrolytes per protocol. Reconcile and continue home medications. Lovenox for VTE prophylaxis. Full code Discharge Plan: Home Plan to discharge in: 24 Hours - Advance Directives Does patient have a Living Will: No Does patient have a Durable POA for Healthcare: No - Code Status/Comfort Care Code Status Assessed: Yes Code Status: Full Code Physician Review: Patient Assessed, Agree with Above Assessment and Plan Critical Care: No Time Spent Managing Pts Care (In Minutes): 50
[2022-03-03] MEDS ORDERED: ACETAMINOPHEN 500 MG TAB PO PRN (03:36)
[2022-03-03] MEDS ORDERED: ONDANSETRON 4 MG/2 ML VIAL IV PRN (03:36)
[2022-03-03 05:43] LABS: Magnesium 2.3 mg/dL (1.6-2.4); Phosphorus 2.8 mg/dL (2.5-4.9); Potassium 3.3 mmol/L (3.5-5.1); Thyroid Stimulating Hormone 3.19 uIU/mL (0.358-3.740)
[2022-03-03 05:48] LABS: CKMB Creatine Kinase MB 13.8 ng/mL (1.0-3.6); Troponin High Sensitivity 459.3 pg/mL (<58.9)
[2022-03-03] MEDS: ASPIRIN EC 81 MG TAB PO SCH (08:24)
[2022-03-03] MEDS: AMLODIPINE 10 MG TAB PO SCH (08:24)
[2022-03-03] MEDS: FERROUS SULFATE 325 MG TAB PO SCH ×2 (08:24→20:41)
[2022-03-03] MEDS ORDERED: POTASSIUM CL SA 10 MEQ TAB PO ONE (09:00)
[2022-03-03] MEDS ORDERED: ENOXAPARIN 40 MG/0.4 ML SQ SCH (09:00)
--- NOTE | 2022-03-03 12:52 | P.PN ---
Date of Service: 03/03/22 Patient seen and examined. She denies any chest pain or shortness of breath. She currently has no complaints. Troponin trended up. Toxicology screen is positive for methamphetamine, negative for cocaine Diagnosis: NSTEMI Accelerated hypertension Methamphetamine abuse. Plan: Aspirin, metoprolol. Clonidine as needed for BP spikes. Cardiology consulted. Start full dose Lovenox for NSTEMI.
[2022-03-03] MEDS: cloNIDine HCL 0.1 MG TAB PO PRN (14:33)
[2022-03-03] MEDS: METOPROLOL TAR 25 MG TAB PO SCH (18:00)
[2022-03-03] MEDS: ENOXAPARIN 80 MG/0.8 ML SQ SCH (20:41)
[2022-03-03] MEDS: ATORVASTATIN 40 MG TAB PO SCH (20:41)
[2022-03-04 05:38] LABS: Magnesium 2.2 mg/dL (1.6-2.4)
[2022-03-04] MEDS: METOPROLOL TAR 25 MG TAB PO SCH ×2 (06:10→17:09)
[2022-03-04] MEDS: ENOXAPARIN 80 MG/0.8 ML SQ SCH ×2 (08:23→21:48)
[2022-03-04] MEDS: FERROUS SULFATE 325 MG TAB PO SCH ×2 (08:24→21:49)
[2022-03-04] MEDS: AMLODIPINE 10 MG TAB PO SCH (08:24)
[2022-03-04] MEDS: ASPIRIN EC 81 MG TAB PO SCH (08:24)
[2022-03-04] MEDS: ALBUTEROL 2.5 MG/3 ML NEB SOL NEB SCH ×2 (12:30→20:20)
[2022-03-04] MEDS: IPRATROPIUM BROM 0.5MG/2.5ML NEB SCH ×2 (12:30→20:20)
--- NOTE | 2022-03-04 14:47 | P.PN ---
Subjective Date of Service: 03/04/22 Chief Complaint: ACS Rule Out Patient is complaining of shortness of breath. She denies any chest pain. No seizures since admission. Her oxygen saturation was 90% on room air at rest last night so she was put on oxygen by nasal cannula. Physical Examination - Vital Signs Temperature: 97 F Blood Pressure: 142/78 Pulse: 67 Respirations: 18 Pulse Ox (%): 97 Assessment And Plan - Current Problems (Diagnosis) (1) NSTEMI (non-ST elevated myocardial infarction) Current Visit: Yes Status: Acute (2) Seizure Current Visit: Yes Status: Acute (3) Malignant hypertension Current Visit: Yes Status: Acute (4) Methamphetamine abuse Current Visit: Yes Status: Chronic (5) Acute respiratory failure with hypoxia Current Visit: No Status: Acute (6) COPD exacerbation Current Visit: No Status: Acute - Plan Physical Exam General: Alert, In no apparent distress, Obese Neck: Supple, JVD not distended. Respiratory: Adequate breath sounds bilaterally, mild scattered wheezes. Cardiovascular: Regular rate/rhythm, Normal S1 S2 Gastrointestinal: Normal bowel sounds, No tenderness Musculoskeletal: No tenderness Integumentary: No rashes Neurological: No focal motor deficit. Plan: Continue aspirin, metoprolol, full dose Lovenox. Cardiology consulted. Start bronchodilators for COPD exacerbation. No steroids for now. Wean off oxygen. Further management of NSTEMI per cardiology. She is on amiodarone and metoprolol for hypertension. Clonidine as needed for BP spikes.
--- NOTE | 2022-03-04 15:52 | EKG ---
Test Date: 2022-03-02 Test Time: 20:27:32 L D Rn: LARISA MEASUREMENT RESULTS: Intervals: Rate: 77 [place]: 170 QRSD: 90 QT: 378 QTc: 427 [place]: P: 55 [place]: 170 QRS: 3 T: 158 INTERPRETIVE STATEMENTS: Normal sinus rhythm Possible Left atrial enlargement Left ventricular hypertrophy with repolarization abnormality Abnormal ECG Compared to ECG 01/06/2021 09:31:38 Atrial premature complex(es) no longer present Aberrant conduction of supraventricular beat(s) no longer present Prolonged QT interval no longer present Electronically Signed On 03-04-22 15:50:57 PATTERN MAKER PROGRAMER by Josse Olson
--- NOTE | 2022-03-04 16:49 | CON ---
Date of Consultation: 03/03/2022 Reason For Consultation: Elevated troponin. History Of Present Illness: A 46-year-old female, history of hypertension, COPD, seizure disorder, d iastolic heart failure, and obesity, presented after having a seizure episode. Denies having any cecil st pain. No shortness of breath. No orthopnea. No diaphoresis. Troponin was elevated and the kathie ent is completely asymptomatic. Past Medical History: As outlined above in the HPI. Medications: Refer to reconciliation sheet for detailed list. Allergies: NO KNOWN DRUG ALLERGIES. Family History: No premature coronary artery disease or cancer. Social History: Does not does not drink. Does not use any drugs, but active smoker. Review of Systems: All systems reviewed and they were negative except what mentioned in HPI. Physical Examination: Vital Signs: Reviewed. Head and Neck: Pupils are equal, reactive to light. Intact eye movements. No JVD. No cervical lym phadenopathy. Neck is supple. Thyroid is not enlarged. Lungs: Clear to auscultation bilaterally. No rhonchi, wheezing, or crackles. No accessory muscle u se. Heart: Regular rate and rhythm. No extra sounds. Abdomen: Soft, nontender. Bowel sounds positive. No organomegaly. No masses or hernia. No rigidi ty or rebound. Extremities: No edema, clubbing, or cyanosis. Intact pulses. Skin: No rash. Neurologic: Alert, awake, oriented x3. No acute focal deficits appreciated. Investigations: Troponin 459. BUN is 15, creatinine 1.31. Assessment And Recommendations: 1.Elevated troponin. 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 This could be due to the seizure activities; however, her is N T-proBNP is elevated. I recommend Lexiscan nuclear stress test and an echocardiogram to be done aquilino rrow to be done on Saturday further plan accordingly. Meanwhile, baby aspirin 81 mg daily and she is a lready being anticoagulated pending the cardiac workup. 2.Smoker. She was counseled against smoking in details. SR/MODL Voice ID: [id number] Report ID: [id number]
--- NOTE | 2022-03-04 17:01 | PN ---
Date of Progress Note: 03/04/2022 Subjective: Seen by bedside, doing clinically well. 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 Review of Systems: No chest pain, shortness of breath, orthopnea, cough. No nausea, vomiting, diarrhea. All other syst ems reviewed and are negative. Physical Examination: Vital Signs: Reviewed. Head and Neck: Pupils are equal, reactive to light. Intact eye movements. No JVD. No cervical lym phadenopathy. Neck is supple. Thyroid is not enlarged. Lungs: Clear to auscultation bilaterally. No rhonchi, wheezing, or crackles. No accessory muscle u se. Heart: Regular rate and rhythm. No extra sounds. Abdomen: Soft, nontender. Bowel sounds positive. No organomegaly. No masses or hernia. No rigidi ty or rebound. Extremities: No edema, clubbing, or cyanosis. Intact pulses. Skin: No rash. Neurologic: Alert, awake, oriented x3. No acute focal deficits appreciated. Investigations: BUN 19, creatinine 1.45. Assessment And Recommendations: Elevated troponin. Repeat another set today and obtain an echocardi ogram tomorrow as well as a nuclear stress test to further evaluate. The patient has multiple risk f actors including heavy smoking history and also her NT-proBNP is elevated, so cardiac component to th is is a possibility and it could be related to the seizure activities and demand as well. Currently on anticoagulation and aspirin. Continue current management pending the cardiac workup as outlined gera rivera SR/CARMELINA Voice ID: [id number] Report ID: [id number]
[2022-03-04] MEDS: ATORVASTATIN 40 MG TAB PO SCH (21:49)
[2022-03-05] MEDS: ALBUTEROL 2.5 MG/3 ML NEB SOL NEB SCH ×4 (01:50→20:35)
[2022-03-05] MEDS: IPRATROPIUM BROM 0.5MG/2.5ML NEB SCH ×4 (01:50→20:35)
[2022-03-05 04:38] LABS: Phosphorus 2.9 mg/dL (2.5-4.9); Potassium 4.5 mmol/L (3.5-5.1)
[2022-03-05] MEDS: METOPROLOL TAR 25 MG TAB PO SCH ×2 (05:40→18:47)
[2022-03-05] MEDS: AMLODIPINE 10 MG TAB PO SCH (09:29)
[2022-03-05] MEDS: ASPIRIN EC 81 MG TAB PO SCH (09:29)
[2022-03-05] MEDS: cloNIDine HCL 0.1 MG TAB PO PRN (09:29)
[2022-03-05] MEDS: FERROUS SULFATE 325 MG TAB PO SCH ×2 (09:29→20:36)
[2022-03-05] MEDS: ENOXAPARIN 80 MG/0.8 ML SQ SCH ×2 (09:29→20:36)
[2022-03-05] MEDS ORDERED: REGADENOSON 0.4 MG/5 ML SYR IV ONE (09:54)
--- NOTE | 2022-03-05 12:58 | P.PN ---
Subjective Date of Service: 03/05/22 Chief Complaint: ACS Rule Out Patient has no new complaint She denies any chest pain. No seizures since admission. She desires to go home. Physical Examination - Vital Signs Temperature: 98.4 F Blood Pressure: 162/88 Pulse: 72 Respirations: 16 Pulse Ox (%): 93 Assessment And Plan - Current Problems (Diagnosis) (1) NSTEMI (non-ST elevated myocardial infarction) Current Visit: Yes Status: Acute (2) Seizure Current Visit: Yes Status: Acute (3) Malignant hypertension Current Visit: Yes Status: Acute (4) Methamphetamine abuse Current Visit: Yes Status: Chronic (5) Acute respiratory failure with hypoxia Current Visit: No Status: Acute (6) COPD exacerbation Current Visit: No Status: Acute - Plan Physical Exam General: Alert, In no apparent distress, Obese Neck: Supple, JVD not distended. Respiratory: Adequate breath sounds bilaterally, mild scattered wheezes. Cardiovascular: Regular rate/rhythm, Normal S1 S2 Gastrointestinal: Normal bowel sounds, No tenderness Musculoskeletal: No tenderness Integumentary: No rashes Neurological: No focal motor deficit. Plan: Continue aspirin, metoprolol. Patient will complete full dose Lovenox for NSTEMI today. Cardiology consulted. Dr. Olson recommend stress test. Echocardiogram result is pending. Continue bronchodilators for COPD exacerbation. Patient is not stable on room air, oxygen saturation 97% on room air. She is on amlodipine and metoprolol for hypertension. Clonidine as needed for BP spikes.
--- NOTE | 2022-03-05 13:24 | ECHO ---
HEIGHT: 5 ft 2 in WEIGHT: 171 lb 0 oz DATE OF STUDY: 03/05/[address]: Kalli Bradshaw 2-DIMENSIONAL: YES M.MODE: YES DOPPLER: YES COLOR FLOW: YES TDS: PORTABLE: YES DEFINITY: BUBBLE STUDY: DIAGNOSIS: CONGESTIVE HEART FAILURE CARDIAC HISTORY: CATHERIZATION: NO SURGERY: NO PROSTHETIC VALVE: NO PACEMAKER: NO MEASUREMENTS (cm) DIASTOLIC (NORMALS) SYSTOLIC (NORMALS) IVSd 1.5 (0.6-1.2) LA Diam 3.5 (1.9-4.0) LVEF 68% LVIDd 3.9 (3.5-5.7) LVIDs 2.4 (2.0-3.5) %FS 38% LVPWd 1.6 (0.6-1.2) Ao Diam 2.8 (2.0-3.7) 2 DIMENSIONAL ASSESSMENT: RIGHT ATRIUM: NORMAL LEFT ATRIUM: NORMAL RIGHT VENTRICLE: NORMAL LEFT VENTRICLE: MODERATE LEFT VENTRICULAR HYPERTROPHY TRICUSPID VALVE: NORMAL MITRAL VALVE: MILD MITRAL REGURGITATION PULMONIC VALVE: NORMAL AORTIC VALVE: NORMAL PERICARDIAL EFFUSION: NONE AORTIC ROOT: NORMAL LEFT VENTRICULAR WALL MOTION: NORMAL DOPPLER/COLOR FLOW: SEE BELOW COMMENTS: 1. NORMAL LEFT VENTRICULAR EJECTION FRACTION 60-65% WITH NORMAL WALL MOTION 2. MODERATE DIASTOLIC DYSFUNCTION 3. MODERATE CONCENTRIC LEFT VENTRICULAR HYPERTROPHY 4. MILD MITRAL REGURGITATION/ MILD TRICUSPID REGURGITATION 5. MODERATE PULMONARY HYPERTENSION WITH RIGHT VENTRICULAR SYSTOLIC PRESSURE OF 45-50 mmHg TECHNOLOGIST: JACINDA BILL
[2022-03-05] MEDS: ATORVASTATIN 40 MG TAB PO SCH (20:36)
--- NOTE | 2022-03-05 22:50 | P.PN ---
Date of Service: 03/06/22 Subjective: tired of being in hospital, wanting to go home no chest pain, no SOB no further seizure activity ROS: A complete review of systems was performed and is negative except as mentioned above Physical Exam: Gen: NAD, AOx3 HEENT: normal conjunctiva, sclera anicteric CV: regular rate & rhythm, no edema Pulm: non-labored respirations, clear bilaterally Abd: soft, non-tender, non-distended Neuro: normal speech, normal affect, moves all extremities vitals reviewed Problem List NSTEMI acute diastolic CHF, new diagnosis Seizure Acute hypoxemic respiratory failure secondary to COPD exacerbation Malignant HTN Methamphetamine abuse Continue aspirin, metoprolol. on therapeutic lovenox for NSTEMI Cardiology consulted. Dr. Olson recommend stress test. stress test 03/06: 2-3 areas of reversible ischemia Dr. Olson recommends cardiac cath, tentative plan for 03/07 Continue bronchodilators for COPD exacerbation. oxygenation / respirations improved She is on amlodipine and metoprolol for hypertension. Clonidine as needed for BP spikes. TTE (03/05): normal LVEF: 68% moderate diastolic dysfunction moderate concentric LVH mild MR, mild TR moderate pulmonary HTN VTE: Lovenox BID Code: Full Dispo: home, 1-2 days, pending cath results Time Spent Managing Pts Care (In Minutes): 35
[2022-03-06] MEDS: IPRATROPIUM BROM 0.5MG/2.5ML NEB SCH ×4 (02:00→20:50)
[2022-03-06] MEDS: ALBUTEROL 2.5 MG/3 ML NEB SOL NEB SCH ×4 (02:00→20:50)
[2022-03-06 03:35] VITALS: BMI 32.5
[2022-03-06 03:55] LABS: Hematocrit 36.6 % (36.0-45.0); MCV 81.3 fL (80-100); MPV 7.3 fL (7.6-11.3)
[2022-03-06 04:07] LABS: Potassium 4.2 mmol/L (3.5-5.1); Protein, Total 7.1 g/dL (6.4-8.2)
[2022-03-06] MEDS: METOPROLOL TAR 25 MG TAB PO SCH ×2 (05:02→17:58)
[2022-03-06] MEDS ORDERED: HYDRALAZINE HCL 20 MG/ML VIAL ONE (07:23)
[2022-03-06] MEDS: FERROUS SULFATE 325 MG TAB PO SCH ×2 (08:13→21:06)
[2022-03-06] MEDS: AMLODIPINE 10 MG TAB PO SCH (08:13)
[2022-03-06] MEDS: ENOXAPARIN 80 MG/0.8 ML SQ SCH ×2 (08:13→21:07)
[2022-03-06] MEDS: ASPIRIN EC 81 MG TAB PO SCH (08:13)
--- NOTE | 2022-03-06 09:44 | RAD REPORT ---
EXAM DESCRIPTION: NM - Rest Stress Cardiac Imaging - 03/06/2022 9:32 am CLINICAL HISTORY: elevated troponin COMPARISON: None. TECHNIQUE: The patient was administered 10.4 MCi of Tc 99m Sestamibi prior to resting SPECT imaging of the heart. The patient was then administered 30.1 mCi of Tc 99m Sestamibi following exercise or ph armacologic stress. Multiplanar SPECT images were reviewed. FINDINGS: Stress images demonstrate moderate area of diminished radiotracer uptake involving the inf erior left ventricular myocardium. This demonstrates normal uptake on rest images. The stress images demonstrate small area of diminished radiotracer uptake involving anterior and late ral left ventricular myocardium. On rest images the lateral left ventricular myocardium demonstrates normal radiotracer uptake. There is partial reaccumulation of radiotracer within the anterior left ve ntricular myocardium The left ventricular ejection fraction equals 46% IMPRESSION: Moderate reversible perfusion defect inferior left ventricular myocardium probably stres s-induced ischemia Small reversible perfusion defect involving the lateral left ventricular myocardium probably stress-i nduced ischemia Small partially reversible perfusion defect involving the anterior left ventricular myocardium
--- NOTE | 2022-03-06 17:49 | PN ---
Date of Progress Note: 03/06/2022 Subjective: The patient was by bedside. 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 Troponin is trending down. Review of Systems: No chest pain, shortness of breath, orthopnea, cough, nausea, vomiting, diarrhea. All other systems reviewed and they were negative. Physical Examination: Vital Signs: Reviewed. Head and Neck: Pupils are equal, reactive to light. Intact eye movements. No JVD. No cervical lym phadenopathy. Neck is supple. Thyroid is not enlarged. Lungs: Clear to auscultation bilaterally. No rhonchi, wheezing, or crackles. No accessory muscle u se. Heart: Regular rate and rhythm. No extra sounds. Abdomen: Soft, nontender. Bowel sounds positive. No organomegaly. No masses or hernia. No rigidi ty or rebound. Extremities: No edema, clubbing, or cyanosis. Intact pulses. Skin: No rash. Neurologic: Alert, awake. No acute focal deficits appreciated. Investigations: Troponin trended down as outlined above and her stress test showed moderate reversib le inferior defect. Assessment And Recommendations: Non-ST elevation myocardial infarction. Positive stress test, eleva markie troponin. Plan for a coronary angiogram. Meanwhile, continue Lovenox and n.p.o. past midnight f or left heart catheterization tomorrow morning. SR/MODL Voice ID: [id number] Report ID: [id number]
[2022-03-06] MEDS: ATORVASTATIN 40 MG TAB PO SCH (21:06)
[2022-03-07] MEDS: IPRATROPIUM BROM 0.5MG/2.5ML NEB SCH ×2 (02:50→08:00)
[2022-03-07] MEDS: ALBUTEROL 2.5 MG/3 ML NEB SOL NEB SCH ×2 (02:50→08:00)
[2022-03-07 04:39] LABS: Magnesium 1.8 mg/dL (1.6-2.4); Potassium 4.8 mmol/L (3.5-5.1)
[2022-03-07] MEDS ORDERED: NA CHLORIDE 0.9% 1,000 ML ONE (05:46)
[2022-03-07] MEDS: METOPROLOL TAR 25 MG TAB PO SCH (05:52)
[2022-03-07] MEDS: ASPIRIN EC 81 MG TAB PO SCH (05:54)
[2022-03-07] MEDS ORDERED: MAGNESIUM SULFATE 1 gm IVPB 1 GM/100 ML BAG IV ONE (06:00)
--- NOTE | 2022-03-07 07:37 | TREADPHA ---
DX: ELEVATED TROPONIN Date of Study: 03/06/2022 Ht: 5' 2 " Wt: 177 lb 14.4 oz Consulting Physician: EMILY MEDICATIONS: TYLENOL, NORVASC, ASPIRIN, LIPITOR, CATAPRES, LOVENOX, LOPRESSOR, FEOSOL, ALBUTEROL HISTORY: 46 YEAR OLD FEMALE WITH COMPAINTS OF SEIZURE ACTIVITY STATES NKDA. HISTORY OF PRIOR MYOCARDIAL INFARCTION AND SEIZURE ACTIVITY. PHYSICIAL EXAMINATION: RESTING B.P.: 196/111 RESTING H.R.: 55 RESTING EKG: NORMAL SINUS RHYTHM WITH LEFT VENTRICULAR HYPERTROPHY AND DIFFUSE ST ABNORMALITY. PROTOCOL: LEXISCAN EXERCISE TIME: 3:30 B.P. AT [place] STRESS: 132/88 IMPRESSION: PATIENT BLOOD PRESSURE 196/111. DR. DIAZ NOTIFIED. ORDERS RECEIVED TO ADMINISTER 10 mg OF HYDRALAZINE IV ACCESS ADMINISTERED. BLOOD PRESSURE REACCESSED 171/100. DR. DIAZ STATES PROCEED WITH POC. LEXISCAN INJECTED. CARDIOLITE INJECTED. SEE NUCLEAR MEDICINE REPORT. NO SUPRAVENTRICULAR OR VENTRICULAR TACHYCARDIA. NO PREMATURE VENTRICULAR COMPLEXES OR PREMATURE ATRIAL COMPLEXES. PATIENT DENIES CHEST PAIN. PATIENT COMPLAINTS OF SLIGHT DIZZINESS AND NAUSEA. ORDERS RECEIVED TO GIVE 4 mg ZOFRAN IV. NON DIAGNOSTIC EKG PORTION OF THE TEST DUE TO ABNORMAL BASELINE.
[2022-03-07 08:05] VITALS: BP 130/82; TEMP 97.8
[2022-03-07 08:36] VITALS: O2SAT 94
[2022-03-07] MEDS: AMLODIPINE 10 MG TAB PO SCH (08:37)
[2022-03-07] MEDS: FERROUS SULFATE 325 MG TAB PO SCH (08:37)
[2022-03-07] MEDS ORDERED: LIDOCAINE 1% 20 ML MDV ONE (08:48)
[2022-03-07] MEDS ORDERED: HEPA 1000U/500MLS 0 UNIT/0 ML BAG IV ONE (08:48)
--- NOTE | 2022-03-07 09:21 | P.DS ---
Admission Date: 03/03/22 Discharge Date: 03/07/22 Disposition: AMA-LEFT AGAINST MEDICAL ADVIC Reason for Admission: ACS, possible seizure Consultations: Cardiology - Dr. Olson Brief History of Present Illness: 46yo F, PMH: HTN, COPD, Seizure disorder, diastolic CHF, morbid obesity Presented to ED following a subjective seizure. Patient reports that she did not take her antihypertensives or seizure medication today and seized while she was in the shower. EMS reports that she was disoriented when they arrived and saturating 85% on room air. CT traumagram was negative. Her labs are significant for creatinine 1.4, hemoglobin 11.1, alk phos 206, BNP 5500, troponin 56 with repeat of 84. Patient denies chest pain. EKG with nonspecific changes. She was also very hypertensive, max of 210/121. She was given hydralazine, breathing treatment, aspirin in the ED. ED provider wishes for patient for observation, for ACS rule out. Hospital Course: Problem List NSTEMI acute diastolic CHF, new diagnosis Seizure disorder Acute hypoxemic respiratory failure secondary to COPD exacerbation Malignant HTN Methamphetamine abuse Patient was treated with bronchodilators, oxygen supplementation, anti- hypertensives, and therapeutic lovenox. Cardiology was consulted for NSTEMI. TTE (03/05): normal LVEF: 68%, moderate diastolic dysfunction, moderate concentric LVH, mild MR, mild TR, moderate pulmonary HTN Strest test (03/06): positive, with 3 areas noted for reversible perfusion defect. Cardiology planned for left heart catheterization to be done the following day, on 03/07 On morning of 03/07, patient refused to sign consent for cardiac catheterization. She stated she no longer wanted to remain in the hospital. She expressed understanding of her condition, the stress test results and reason we are recommending cardiac catheterization, including risk of . Discussed she may even be discharged later today after the cardiac catheterization. She still declined staying, and wanted to leave. She did report some general anxiety from being in the hospital due to her mother passing away in a hospital in the recent past. I discussed some anxiety medication can be given if this is the main reason. She declined any medication, stating she "just doesn't want to stay here any longer" and is "going home". Vital Signs/Physical Exam: Temp Pulse Resp BP Pulse Ox 97.8 F 59 16 130/82 94 03/07/22 08:00 03/07/22 08:37 03/07/22 08:00 03/07/22 08:37 03/07/22 08:00 General: Alert, In no apparent distress, Oriented x3 HEENT: EOMI, Sclerae nonicteric Respiratory: Clear to auscultation bilaterally, Normal air movement Cardiovascular: No edema, Regular rate/rhythm Gastrointestinal: Soft and benign, Non-distended, No tenderness Integumentary: No significant lesion, No tenderness/swelling Neurological: Normal speech, Normal strength at 5/5 x4 extr, Normal affect Laboratory Data at Discharge: WBC 9.40 K/uL (4.3-10.9) 03/06/22 03:27 Hgb 11.8 g/dL (12.0-15.0) L 03/06/22 03:27 Hct 36.6 % (36.0-45.0) 03/06/22 03:27 Plt Count 288 K/uL (152-406) 03/06/22 03:27 PT 12.2 SECONDS (9.5-12.5) 03/02/22 21:00 INR 1.11 03/02/22 21:00 APTT 31.9 SECONDS (24.3-36.9) 03/02/22 21:00 Sodium 137 mmol/L (136-145) 03/07/22 03:39 Potassium 4.8 mmol/L (3.5-5.1) D 03/07/22 03:39 BUN 17 mg/dL (7-18) 03/07/22 03:39 Creatinine 1.46 mg/dL (0.55-1.02) H 03/07/22 03:39 Glucose 101 mg/dL (74-106) 03/07/22 03:39 Phosphorus 2.9 mg/dL (2.5-4.9) 03/05/22 03:50 Magnesium 1.8 mg/dL (1.6-2.4) 03/07/22 03:39 Total Bilirubin 1.0 mg/dL (0.2-1.0) 03/06/22 03:25 AST 28 U/L (15-37) 03/06/22 03:25 ALT 25 U/L (13-56) 03/06/22 03:25 Alkaline Phosphatase 190 U/L (45-117) H 03/06/22 03:25 Triglycerides 38 mg/dL (<150) 03/03/22 04:49 Cholesterol 142 mg/dL (<200) 03/03/22 04:49 HDL Cholesterol 84 mg/dL (40-60) H 03/03/22 04:49 Cholesterol/HDL Ratio 1.69 03/03/22 04:49 Home Medications: Amlodipine [Norvasc*] 10 mg PO DAILY #30 tab 01/08/21 Ferrous Sulfate [Ferrous Sulfate*] 325 mg PO BID #60 tab 01/08/21 Fluticasone/Salmeterol [Advair 250-50 Diskus] 1 each IH BID #60 blst.w.dev Sennosides [Senokotxtra] 17.2 mg PO BID #120 tablet 01/08/21 predniSONE [Deltasone] 40 mg PO DAILY #5 tab 01/08/21 traMADol HCL [Ultram*] 50 mg PO Q6H PRN #20 tab 01/08/21 Time spent managing pt's care (in minutes): 45
== END 2022-03-07 09:19 | disposition left against medical advice (07) | DRG 280 ==
LOC: ER 20:03 → ERHOLD 03-03 01:56 → 4TH 03-03 02:22 → OBSVTOIN 03-06 13:12
PROVIDERS: ADMIT Internal Medicine; ATTEND Hospitalist
DX: I21.4 Non-ST elevation (NSTEMI) myocardial infarction (principal); I50.31 Acute diastolic (congestive) heart failure; J96.01 Acute respiratory failure with hypoxia; I13.0 Hypertensive heart and chronic kidney disease with heart failure and stage 1 through stage 4 chronic kidney disease, or unspecified chronic kidney disease; J44.1 Chronic obstructive pulmonary disease with (acute) exacerbation; G40.909 Epilepsy, unspecified, not intractable, without status epilepticus; N18.30 Chronic kidney disease, stage 3 unspecified; D63.1 Anemia in chronic kidney disease; I27.20 Pulmonary hypertension, unspecified; E66.01 Morbid (severe) obesity due to excess calories; F41.9 Anxiety disorder, unspecified; F15.10 Other stimulant abuse, uncomplicated; F17.210 Nicotine dependence, cigarettes, uncomplicated; Z71.6 Tobacco abuse counseling; Z68.32 Body mass index [BMI] 32.0-32.9, adult; Z53.29 Procedure and treatment not carried out because of patient's decision for other reasons; Z91.14 Patient's other noncompliance with medication regimen; Z79.52 Long term (current) use of systemic steroids; Z79.899 Other long term (current) drug therapy; Z20.822 Contact with and (suspected) exposure to COVID-19
CPT/HCPCS: 36415; 70450; 71260; 72125; 74177; 78452; 80048; 80053; 80061; 80076; 80307; 80320; 80329; 81003; 81015; 81025; 82550; 82553; 82947; 83735; 83880; 84100; 84443; 84484; 85025; 85027; 85610; 85730; 87811; 93005; 93017; 93306; 94640; 94760; 96374; 96375; 99285; A9500; G0378; J0360; J1644; J1650; J2785; J2930; J3475; J7030; J7613; J7644; Q9967

== ENCOUNTER 2022-07-27 22:10 | Inpatient (IN) | payer SELFPAY ==
--- OUTSIDE RECORDS SUMMARY | 2022-07-27 22:16 | XMS REPORT | Continuity of Care Document ---
:1975 Author Organization [facility] t Address [address] [facility] [address] [place] [address] Care Team Providers Name Role Phone No, Pcp [facility] Primary Care Physician Unavailable ZAIN SALAS Attending Clinician Unavailable SCOTT MCWILLIAMS Admitting Clinician Unavailable Problems Condition Condition Condition Status Onset Resolution Last Treating Co mments Source Name Details Category Date Date Treatment Clinician Date Acute Acute Disease Active 2018-[address] [facility] [address] cholecysti cholecysti 2 [facility] tis tis 00:00: Medical 00 [employer] Hypertensi Hypertensi Disease Recurre 2018-[address] [facility] [address] [facility] 04[facility]19 [facility] 00 [employer] Seizure Seizure Disease Recurre 2018-[address] disorder disorder nce 2- [facility] 00:[facility]: Medical 00 [employer] Calculus Calculus Disease Active 2018-03 [facility] gallbladde gallbladde 00:00: Me dical r without r without 00 Cent er cholecysti cholecysti tis tis without without obstructio obstructio n n Transamini Transamini Disease Active 2018-[address] tis tis 2[facility] 00:00: Medical 00 [employer] Anemia Anemia Disease Active 2018-[address] [facility] 2-02 [facility] 00:00: Medical 00 [employer] Thrombocyt Thrombocyt Disease Active 2018-[address] osis osis 2-02 [facility] 00:00: Medical 00 [employer] Allergies, Adverse Reactions, Alerts Allergy Allergy Status Severity Reaction(s) Onset Inactive Treating Comm ents Source Name Type Date Date Clinician [place] Drug Active Itching 2018-[address] [facility] y Allergy 2- [facility] 00:[facility]: Medical 00 [employer] Fish Drug Active Swelling 2018-[address] [facility] Containi Allergy 2- [facility] ng 00:00: Medical Products 00 Center Social History Social Habit Start Date Stop Date Quantity Comments Source History of tobacco 1992-02-[address] [facility] use 00:00:00 Medical Center History [facility] Alcohol Comment Medical C enter History [facility] Alcohol Std Drinks Medica l Center Alcohol intake 2019-02-17 2019-02-[address] [facility] [facility] es 00:00:00 00:00:00 non-drinker of Medical Ce nter alcohol (finding) Tobacco use and 2019-02-15 2019-02-[address] [facility] [facility] kes exposure 00:00:00 00:00:00 Medical Center History [facility] 2019-02-15 2019-02-[address] [facility] Alcohol Frequency 00:00:00 00:00:00 Medical Center History [facility] 2019-02-15 2019-02-[address] [facility] Alcohol Binge 00:00:00 00:00:[address] Cigarettes smoked 2019-02-15 2019-02-[address] [facility] current (pack per 00:00:00 00:00:00 Medical Center day) - Reported Cigarette 2019-02-15 2019-02-[address] [facility] pack-years 00:00:00 00:00:00 [facility] Center Sex Assigned At [address] [facility] kes 00:00:00 00:00:00 [facility] Center Smoking Status Start Date Stop Date Source Current some day smoker 2019-02-15 00:00:00 [facility] Medications Ordered Filled Start Stop Current Ordering Indication Dosage Frequency Signature Comments Components Source Medication Medication Date Date Medication? Clinician (SIG) Name Name divalproex 2018-03 Yes epilepsy 125mg QD Take [address] [facility] (DEPAK[place]) 2-04 mg by [facility] 125 MG EC 10:36: mouth Medical tablet 04 daily. Center divalproex 2018-03 Yes epilepsy 125mg QD Take [address] (DEPAKOTE) 2-04 mg by [facility] 125 MG EC 10:36: mouth Medical tablet 04 daily. [employer] famotidine 2018-03 Yes 1{tbl} Take [address] (PEPCID) 20 1-30 tablet by Reyna es MG tablet 00:00: mouth Medical 00 every 12 Center (twelve) hours. famotidine 2018-03 Yes 1{tbl} Take 1 [facility] Test 00:00:00 [code = 41696379] Medical Ce nter Future Scheduled 2021-03-18 DEPRESSION [...] cervix Medical C enter (procedure) [code = 147597615] Future Scheduled 1995 DTAP/TDAP/TD VACCINES CH I [...] [facility] Test 00:00:00 [code = CT Colonography [facility] (combo)] Future Scheduled 1975 Screening for malignant [facility] Test 00:00:00 neoplasm of colon Medical Ce nter (procedure) [code = 918048827] Future Scheduled 1975 Screening for malignant [facility] Test 00:00:00 neoplasm of colon Medical Ce nter (procedure) [code = 507858791] Future Scheduled 1975 Screening for malignant [facility] Test 00:00:00 neoplasm of colon Medical Ce nter (procedure) [code = 789109459] Future Scheduled 1975 Screening for malignant [facility] Test 00:00:00 neoplasm of colon Medical Ce nter (procedure) [code = 156330985] Future Scheduled 1975 Sigmoidoscopy [code = [facility] Test 00:00:00 Sigmoidoscopy] Medical Cente r Results Test Description Test Time Test Comments Results Result Comments Source TISSUE EXAM 2019-02-19 Surgical Pathology 12:09:00 Report Case: [id number] Authorizing Provider: Trudy James MD Collected: 02/17/2019 1126 Ordering Location: [address] Received: 02/17/2019 1147 Service Pathologist: Angela Beach MD Specimen: Gallbladder A. GALLBLADDER, CHOLECYSTECTOMY: - CHRONIC CHOLECYSTITIS WITH CHOLELITHIASIS. Signing Pathologist Direct Phone Line: [phone] deana signed by Angela Beach MD on 02/19/2019 at 12:09 [id number] renal mass Gallbladder Received in formalin labeled [...] trabeculated. The wall measures 0.2 cm thick. Director Outcomes sections are submitted in A1-A2, with the inked proximal margin is A1. PA/ew Performed.[facility], Department of Pathology, [address] [place] [address], [facility], [facility], [address] [place] [address], [facility], [facility] of [facility]ology, [address] [place] [address], [place] [address], CBC W/PLT COUNT & AUTO DIFFERENTIAL 2019-02-18 [...] 1 % 0-1 = 2801) BASIC METABOLIC [id number] 06:57:00 Test Item Value Reference Range Interpretation [...] APPLICABLE FOR DIALYSIS PATIEN TS. HEPATIC FUNCTION [id number] 06:57:00 Test Item Value Reference Range Interpretation [...] (test code = 347) hemolyzed HEPATIC FUNCTION [id number] 06:57:00 Test Item Value Reference Range Interpretation [...] 72 U/L 6-55 H 347) BASIC METABOLIC [id number] 06:57:00 Test Item Value Reference Range Interpretation [...] PATIEN TS. CBC W/PLT COUNT & AUTO [id number] 06:28:00 Test Item Value Reference Range Interpretation [...] PERCENT (BEAKER) (test code = 2801) SCREEN, [id number] 07:28:00 Test Item Value Reference Range Interpretation Comments TEST URINE (BEAKER) (test Negative code = 583) [id number] 07:28:00 Test Item Value Reference Range Interpretation Comments MAGNESIUM (BEAKER) 2.0 mg/dL 1.6-2.6 Specimen moderately (test code = 627) hemolyzed [id number] 07:28:00 Test Item Value Reference Range Interpretation Comments PHOSPHORUS (BEAKER) 4.0 mg/dL 2.3-4.7 Specimen moderately (test code = 604) hemolyzed BASIC METABOLIC [id number] 07:28:00 Test Item Value Reference Range Interpretation [...] APPLICABLE FOR DIALYSIS PATIEN TS. HEPATIC FUNCTION [id number] 07:28:00 Test Item Value Reference Range Interpretation [...] Specimen moderately (test code = 347) hemolyzed [id number] 07:28:00 Test Item Value Reference Range Interpretation Comments LIPASE (BEAKER) (test code = 749) 31 U/L 8-78 CBC W/PLT COUNT & AUTO [id number] 07:10:00 Test Item Value Reference Range Interpretation [...] (BEAKER) (test code = 2801) U/S, ABDOMINAL, [id number] 23:50:00Abdomen limited area? Add comment if clarification [...] Date/Time: 02/15/2019 23:50:53 URINALYSIS W/ REFLEX URINE [id number] 22:43:00 Test Item Value Reference Range Interpretation [...] code = 516) SOURCE(BEAKER) (test code = 2716) HEPATIC FUNCTION [id number] 17:03:00 Test Item Value Reference Range Interpretation [...] Specimen slightly (test code = 347) hemolyzed GAMMA GLUTAMYL TRANSFERASE (GGT)2019-02-15 16:00:00 Test Item Value Reference Range Interpretation Comments GAMMA GLUTAMYL 149 U/L 9-64 H Specimen slig htly TRANSFERASE (BEAKER) hemolyz ed (test code = 364) [id number] 16:00:00 Test Item Value Reference Range Interpretation Comments MAGNESIUM (BEAKER) 2.1 mg/dL 1.6-2.6 Specimen slightly (test code = 627) hemolyzed BASIC METABOLIC [id number] 16:00:00 Test Item Value Reference Range Interpretation [...] S NOT APPLICABLE FOR DIALYSIS PATIEN TS. PROTHROMBIN [id number] 15:31:00 Test Item Value Reference Range Interpretation [...] is 2.5-3.5 for patients wiht mechanical heart valves.[id number] 15:31:00 Test Item Value Reference Range Interpretation Comments PARTIAL THROMBOPLASTIN TIME 31.4 seconds 22.5-36.0 (BEAKER) (test code = 760) CBC W/PLT COUNT & AUTO [id number] 15:14:00 Test Item Value Reference Range Interpretation [...]
[2022-07-27] MEDS ORDERED: KETOROLAC 30 MG/ML INJ ONE (22:29)
[2022-07-27] MEDS ORDERED: ONDANSETRON 4 MG/2 ML VIAL ONE (22:29)
[2022-07-27] MEDS ORDERED: NA CHLORIDE 0.9% 1,000 ML ONE (22:30)
[2022-07-27] MEDS ORDERED: METHYLPREDNISOLONE 125 MG INJ ONE (22:59)
[2022-07-27] MEDS ORDERED: IPRATROPIUM BROM 0.5MG/2.5ML ONE (23:00)
[2022-07-27] MEDS ORDERED: ALBUTEROL 2.5 MG/3 ML NEB SOL ONE (23:00)
[2022-07-27 23:05] LABS: Absolute Lymphocytes (CBC) 0.9 K/uL (0.7-4.9); Hematocrit 43.1 % (36.0-45.0); MCV 89.9 fL (80-100); MPV 6.8 fL (7.6-11.3); RBC Red Blood Cell Count 4.79 M/uL (3.86-4.86)
[2022-07-27 23:20] LABS: Albumin 3.9 g/dL (3.4-5.0); Bilirubin Total 1.3 mg/dL (0.2-1.0); Potassium 3.5 mEq/L (3.5-5.1); Protein, Total 7.8 g/dL (6.4-8.2)
[2022-07-27 23:50] LABS: Blood Morphology Comment NOT SEEN (NOT SEEN); Platelet Estimate ADEQ
[2022-07-28 00:38] LABS: Renal Epithelial <5 /HPF (None Seen); Specific Gravity 1.022 (1.005-1.030); Urine Bacteria <20 /HPF (<20); Urine Bilirubin NEGATIVE (Negative); Urine Blood Negative (Negative); Urine Clarity Clear (Clear); Urine Color Light-Yellow (Yellow); Urine Glucose NEGATIVE (Negative); Urine Mucus Slight /HPF (None Seen); Urine Protein TRACE (Negative); Urine RBC None Seen /HPF (None Seen); Urine Urobilinogen Normal (Normal); Urine WBC Clump Rare /HPF (None Seen)
[2022-07-28 00:49] LABS: Troponin High Sensitivity 52.7 pg/mL (<58.9)
--- NOTE | 2022-07-28 01:05 | EDPHYS ---
Physician Documentation [facility] Name: Geetha Khan Age: 47 yrs Sex: Female : 1975 Arrival Date: 07/27/2022 Time: 22:10 Bed 4 Private MD: ED Physician Gene Medrano HPI: 07/27 22:14 This 47 yrs old Female presents to ER via Unassigned with complaints of abd pain. kb 22:14 The patient presents with abdominal pain. Onset: The symptoms/episode began/occurred 3 kb day(s) ago. The symptoms do not radiate. Associated signs and symptoms: Pertinent positives: dysuria, Pertinent negatives: nausea, vomiting, and diarrhea, fever. The symptoms are described as constant. Modifying factors: The symptoms are alleviated by nothing, the symptoms are aggravated by nothing. Severity of pain: At its worst the pain was moderate in the emergency department the pain is unchanged. The patient has not experienced similar symptoms in the past. The patient has not recently seen a physician. 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 - Social history:: Smoking status: Patient reports the use of cigarette tobacco products, smokes one-half pack cigarettes per day. ROS: 22:15 Constitutional: Negative for fever, chills, and weight loss. kb 22:15 Abdomen/GI: Positive for abdominal pain. 22:15 : Positive for burning with urination. 22:15 All other systems are negative. Exam: 22:15 Constitutional: This is a well developed, well nourished patient who is awake, alert, kb and in no acute distress. Head/Face: Normocephalic, atraumatic. ENT: Moist Mucous membranes Chest/axilla: Normal chest wall appearance and motion. Cardiovascular: Regular rate and rhythm with a normal S1 and S2. No gallops, murmurs, or rubs. No pulse deficits. Respiratory: Respirations even and unlabored. No increased work of breathing. Talking in full sentences Skin: Warm, dry with normal turgor. Normal color. MS/ Extremity: Pulses equal, no cyanosis. Neurovascular intact. Full, normal range of motion. Neuro: Awake and alert, GCS 15, oriented to person, place, time, and situation. Moves all extremities. Normal gait. 22:15 Abdomen/GI: Inspection: abdomen appears normal, Bowel sounds: normal, Palpation: soft, in all quadrants, mild abdominal tenderness, in the right lower quadrant, moderate abdominal tenderness, in the left upper quadrant and left lower quadrant. Vital Signs: 22:18 BP 195 / 118; Pulse 69; Resp 18; Temp 97.5(O); Pulse Ox 97% on R/A; Weight 58.97 kg; oe Height 5 ft. 2 in. ; Pain 10/10; 23:08 BP 207 / 131; Pulse 77; Resp 20; Pulse Ox 100% on Nebulizer Mask; kd3 07/28 00:49 BP 157 / 102; Pulse 94; Resp 20 S; Pulse Ox 95% on 2 lpm NC; ha1 01:13 BP 187 / 113; Pulse 102; Resp 17; Pulse Ox 93% on 2 lpm NC; kd3 07/27 22:18 Body Mass Index 23.78 (58.97 kg, 157.48 cm) oe 07/27 22:18 Pain Scale: Adult oe MDM: 07/27 22:11 Patient medically screened. kb 22:14 Data reviewed: vital signs, nurses notes. kb 22:15 Differential diagnosis: diverticulitis, non-specific abd pain, Pyelonephritis, urinary kb tract infection. Historians other than the Patient: EMS: [facility]. 07/28 01:03 Management of patient was discussed with the following: Hospitalist: GOMEZ Recinos accepts pt kb for admission under Dr Reyna. Counseling: I had a detailed discussion with the patient and/or guardian regarding: the historical points, exam findings, and any diagnostic results supporting the discharge/admit diagnosis, lab results, radiology results, the need for further work-up and treatment in the hospital. 07/27 22:11 Order name: CBC with Diff; Complete Time: 23:56 kb 07/27 22:11 Order name: CMP; Complete Time: 23:27 kb 07/27 22:11 Order name: Lipase; Complete Time: 23:27 kb 07/27 22:11 Order name: Test, Urine; Complete Time: 00:44 kb 07/27 22:11 Order name: Urinalysis w/ reflexes; Complete Time: 00:44 kb 07/27 23:14 Order name: Manual Differential; Complete Time: 23:56 EDMS 07/28 00:31 Order name: Troponin High Sensitivity; Complete Time: 00:51 rn 07/28 00:31 Order name: BNP; Complete Time: 00:51 rn 07/27 22:11 Order name: CT Abd/Pelvis - IV Contrast Only kb 07/28 00:30 Order name: XRAY Chest (1 view) rn 07/28 00:33 Order name: EKG; Complete Time: 00:33 rn 07/27 22:11 Order name: IV Saline Lock; Complete Time: 22:45 kb 07/27 22:11 Order name: Labs collected and sent; Complete Time: 22:45 kb 07/28 00:33 Order name: EKG - Nurse/Tech; Complete Time: 01:13 rn Administered Medications: 07/27 22:45 Drug: NS 0.9% IV 1000 ml Route: IV; Rate: 1 bolus; Site: right antecubital; 07/28 01:53 Follow up: IV Status: Completed infusion; IV Intake: 1000ml 07/27 22:47 Drug: Ondansetron IVP 4 mg Route: IVP; Site: right antecubital; 07/28 01:53 Follow up: Response: No adverse reaction 07/27 22:48 Drug: TORadol - Ketorolac IVP 15 mg Route: IVP; Site: right antecubital; 07/28 01:53 Follow up: Response: No adverse reaction; Pain is decreased 07/27 23:01 Drug: DuoNeb Nebulize (3:1) (2.5 mg - 0.5 mg) 3 ml Route: Nebulizer; 07/28 01:53 Follow up: Response: No adverse reaction 07/27 23:01 Drug: MethylPrednisoLONE IVP 125 mg Route: IVP; Site: right antecubital; 07/28 01:53 Follow up: Response: No adverse reaction 01:36 Drug: Furosemide IVP 40 mg Route: IVP; Site: right antecubital; 01:53 Follow up: Response: No adverse reaction 3 01:36 Drug: Metoprolol PO 50 mg Route: PO; 3 01:53 Follow up: Response: No adverse reaction kd3 Disposition: 02:06 Co-signature as Attending Physician, Gene Medrano MD I reviewed the patient's care rn provided by the Advanced Practice Provider and agree with the diagnosis and treatment plan. Disposition Summary: 07/28/22 01:04 Hospitalization Ordered Hospitalization Status: Observation kb Provider: Enrique Reyna Location: Telemetry/MedSurg (observation) kb Condition: Stable kb Problem: an acute exacerbation kb Symptoms: are unchanged kb Bed/Room Type: Standard Room Assignment: 429(07/28/22 01:25) cg Diagnosis - Unspecified combined systolic (congestive) and diastolic (congestive) heart failure kb - COPD/ Chronic obstructive pulmonary disease, unspecified kb Forms: - Medication Reconciliation Form kb - SBAR form kb Signatures: Dispatcher [employer] EDMS Kathy Kerns, FIRE OFFICIAL-C FIRE OFFICIAL-Ckb Gene Medrano MD MD rn Garcia, Cindy, RN RN Lisbet Savage RN RN kd3 Corrections: (The following items were deleted from the chart) 01:25 01:04 kb cg
--- NOTE | 2022-07-28 01:05 | ER ---
Nurse's Notes [facility] Name: Geetha Khan Age: 47 yrs Sex: Female : 1975 Arrival Date: 07/27/2022 Time: 22:10 Bed 4 Private MD: Diagnosis: Unspecified combined systolic (congestive) and diastolic (congestive) heart failure;COPD/ Chronic obstructive pulmonary disease, unspecified Presentation: 07/27 22:16 Chief complaint: Patient states: Pt has had burning with urination, no vomiting or kd3 diarrhea but has had abdominal pain for 3 days. Ebola Screen: No symptoms or risks identified at this time. Initial Sepsis Screen: Does the patient meet any 2 criteria? No. Patient's initial sepsis screen is negative. Does the patient have a suspected source of infection? No. Patient's initial sepsis screen is negative. Risk Assessment: Do you want to hurt yourself or someone else? Patient reports no desire to harm self or others. Onset of symptoms was July 27, 2022. 22:16 Method Of Arrival: EMS: [facility] kd3 22:16 Acuity: CORRINA 4 kd3 22:26 Coronavirus screen: Vaccine status: Patient reports receiving the 2nd dose of the covid kd3 vaccine. Triage Assessment: 22:26 General: Appears uncomfortable, Behavior is calm, cooperative. Pain: Complains of pain kd3 in suprapubic area. Neuro: Level of Consciousness is awake, alert, obeys commands, Oriented to person, place, time, situation. Cardiovascular: Patient's skin is warm and dry. Respiratory: Airway is patent Trachea midline Respiratory effort is even, unlabored, Respiratory pattern is regular, symmetrical. 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 - Social history:: Smoking status: Patient reports the use of cigarette tobacco products, smokes one-half pack cigarettes per day. Screenin:09 [facility] ED Fall Risk Assessment (Adult) History of falling in the last 3 months, kd3 including since admission No falls in past 3 months (0 pts). Abuse screen: Denies threats or abuse. Denies injuries from another. Nutritional screening: No deficits noted. Tuberculosis screening: No symptoms or risk factors identified. Assessment: 23:08 General: Appears uncomfortable, Behavior is calm, cooperative. Pain: Complains of pain kd3 in suprapubic area. Neuro: Level of Consciousness is awake, alert, obeys commands, Oriented to person, place, time, situation. Cardiovascular: Patient's skin is warm and dry. Respiratory: Airway is patent Trachea midline Respiratory effort is even, unlabored, Breath sounds with wheezes bilaterally. 07/28 00:30 Reassessment: Patient and/or family updated on plan of care and expected duration. Pain ha1 level reassessed. Patient is alert, oriented x 3, equal unlabored respirations, skin warm/dry/pink. Patient denies pain at this time. Vital Signs: 07/27 22:18 BP 195 / 118; Pulse 69; Resp 18; Temp 97.5(O); Pulse Ox 97% on R/A; Weight 58.97 kg; oe Height 5 ft. 2 in. ; Pain 10/10; 23:08 BP 207 / 131; Pulse 77; Resp 20; Pulse Ox 100% on Nebulizer Mask; kd3 07/28 00:49 BP 157 / 102; Pulse 94; Resp 20 S; Pulse Ox 95% on 2 lpm NC; ha1 01:13 BP 187 / 113; Pulse 102; Resp 17; Pulse Ox 93% on 2 lpm NC; kd3 07/27 22:18 Body Mass Index 23.78 (58.97 kg, 157.48 cm) oe 07/27 22:18 Pain Scale: Adult oe ED Course: 07/27 22:11 Patient arrived in ED. kb 22:11 Kathy Kerns FNP-C is [facility]. kb 22:11 Gene Medrano MD is Attending Physician. kb 22:17 Triage completed. kd3 22:26 Lisbet Dan, RN is Primary Nurse. kd3 22:26 Arm band placed on right wrist. kd3 22:45 CBC with Diff Sent. kd3 22:45 CMP Sent. kd3 22:45 Lipase Sent. kd3 22:47 Inserted saline lock: 20 gauge in right antecubital area, using aseptic technique. oe Blood collected. 23:09 Patient has correct armband on for positive identification. kd3 23:58 CT Abd/Pelvis - IV Contrast Only In Process Unspecified. EDMS 07/28 00:43 XRAY Chest (1 view) In Process Unspecified. EDMS 00:48 Troponin High Sensitivity Sent. ha1 00:48 BNP Sent. ha1 01:04 Enrique Reyna MD is Hospitalizing Provider. kb 01:52 No provider procedures requiring assistance completed. Patient did not have IV access kd3 during this emergency room visit. Administered Medications: 07/27 22:45 Drug: NS 0.9% IV 1000 ml Route: IV; Rate: 1 bolus; Site: right antecubital; kd3 07/28 01:53 Follow up: IV Status: Completed infusion; IV Intake: 1000ml kd3 07/27 22:47 Drug: Ondansetron IVP 4 mg Route: IVP; Site: right antecubital; kd3 07/28 01:53 Follow up: Response: No adverse reaction kd3 07/27 22:48 Drug: TORadol - Ketorolac IVP 15 mg Route: IVP; Site: right antecubital; kd3 07/28 01:53 Follow up: Response: No adverse reaction; Pain is decreased kd3 07/27 23:01 Drug: DuoNeb Nebulize (3:1) (2.5 mg - 0.5 mg) 3 ml Route: Nebulizer; kd3 07/28 01:53 Follow up: Response: No adverse reaction kd3 07/27 23:01 Drug: MethylPrednisoLONE IVP 125 mg Route: IVP; Site: right antecubital; kd3 07/28 01:53 Follow up: Response: No adverse reaction kd3 01:36 Drug: Furosemide IVP 40 mg Route: IVP; Site: right antecubital; kd3 01:53 Follow up: Response: No adverse reaction kd3 01:36 Drug: Metoprolol PO 50 mg Route: PO; kd3 01:53 Follow up: Response: No adverse reaction kd3 Medication: 07/27 23:09 VIS not applicable for this client. kd3 Intake: 07/28 01:53 IV: 1000ml; Total: 1000ml. kd3 Outcome: 01:04 Decision to Hospitalize by Provider. kb 01:52 Admitted to Med/surg kd3 01:52 Condition: stable 01:52 Discharge instructions given to patient, Instructed on the need for admit, Demonstrated understanding of instructions. 01:54 Patient left the ED. kd3 Signatures: Dispatcher [employer] EDMS Kathy Kerns, LC-C CHAIN BUILDER-Yoni Valadez Kyli, RN RN kd3 Aydee Ulrich RN RN ha1
[2022-07-28] MEDS ORDERED: FUROSEMIDE 40 MG/4 ML VIAL ONE (01:37)
[2022-07-28] MEDS ORDERED: METOPROLOL XL 50 MG TAB PO ONE (01:37)
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
[2022-07-28] MEDS ORDERED: ONDANSETRON 4 MG/2 ML VIAL IV PRN (01:46)
[2022-07-28] MEDS ORDERED: HYDRALAZINE HCL 20 MG/ML VIAL IV PRN (01:46)
[2022-07-28] MEDS ORDERED: ALBUTEROL 2.5 MG/3 ML NEB SOL NEB PRN (01:46)
[2022-07-28] MEDS ORDERED: MORPHINE 2 MG/ML SYR IV PRN (01:46)
[2022-07-28 02:28] VITALS: O2SAT 93
[2022-07-28 03:04] VITALS: BMI 32.5
[2022-07-28 07:11] LABS: Thyroid Stimulating Hormone 1.98 uIU/mL (0.358-3.740); Troponin High Sensitivity 30.7 pg/mL (<58.9)
[2022-07-28] MEDS: METOPROLOL TAR 50 MG TAB PO SCH ×2 (08:50→20:23)
[2022-07-28] MEDS: ASPIRIN EC 81 MG TAB PO SCH (08:50)
[2022-07-28] MEDS: ENOXAPARIN 40 MG/0.4 ML SQ SCH (08:50)
[2022-07-28] MEDS ORDERED: FUROSEMIDE 40 MG/4 ML VIAL IV SCH (09:00)
[2022-07-28] MEDS: DULERA 200/5 (MOMETASONE/FORMOTEROL) INHALER IH SCH ×2 (11:18→20:23)
[2022-07-28] MEDS: SPIRONOLACTONE 25 MG TABLET PO SCH ×2 (11:19→20:23)
[2022-07-28] MEDS: predniSONE 20 MG TAB PO SCH ×2 (11:19→20:23)
--- NOTE | 2022-07-28 14:09 | CON ---
Date of Consultation: 07/28/2022 Reason For Consultation: Shortness of breath. History Of Present Illness: A 47-year-old female with history of diastolic heart failure, COPD, hype rtension, active smoker, seizure disorder, presented with abdominal pain in the lower abdomen that wa s due to ovarian cyst. The patient also had some shortness of breath and wheezing, but no lower extr emity edema or orthopnea. Past Medical History: As outlined above in the HPI. Medications: Refer to reconciliation sheet for detailed list. Allergies: NO KNOWN DRUG ALLERGIES. Family History: No premature coronary artery disease or cancer. Social History: She is an active smoker. Does not drink or use any drugs. Review of Systems: All systems reviewed and they were negative except what mentioned in HPI. Physical Examination: Vital signs: Reviewed. Head and Neck: Pupils are equal, reactive to light. Intact eye movements. No JVD. No cervical lym phadenopathy. Neck is supple. Thyroid is not enlarged. Lungs: Decreased breathing sounds bilaterally. No accessory muscle use or muscle retraction. Heart: Regular rate and rhythm with aortic systolic ejection murmur. Abdomen: Soft, nontender. Bowel sounds positive. No organomegaly. No masses or hernia. No rigidi ty or rebound. Extremities: No clubbing or cyanosis. No edema. Skin: No rash. Neurologic: Alert, awake, oriented x3. No acute focal deficits appreciated. Investigations: Labs were reviewed. Assessment And Recommendations: 1.Elevated NT-proBNP. This is indicating chronic congestive heart failure. She is not in acute hea rt failure at this point. I will continue her home medications and obtain an echo. 2.Hypertension. Blood pressure is acceptable. Continue home medications. Further workup will foll ow based on the echocardiogram findings. SR/MODL Voice ID: [id number] Report ID: [id number]
--- NOTE | 2022-07-28 22:25 | RAD REPORT ---
EXAM DESCRIPTION: US - Abdomen Exam Complete - 07/28/2022 9:29 pm CLINICAL HISTORY: Lower abdominal pain COMPARISON: Abdomen Pelvis W Contrast dated 07/27/2022; Abdomen Pelvis W Contrast dated FINDINGS: No aortic aneurysm. The liver has a homogeneous echotexture. The portal vein is patent. The IVC at the level of the liver is unremarkable. No ascites. Surgically absent gallbladder No biliary ductal dilatation. The pancreas was grossly unremarkable. The right kidney measures 7.6 cm normal echotexture. No hydronephrosis. Atrophic right kidney. The left kidney measures 9.1 cm with a normal echotexture. No hydronephrosis. No suspicious masses. The spleen is unremarkable. IMPRESSION: Cholecystectomy. No biliary ductal dilatation. Atrophic right kidney.
[2022-07-29 04:29] LABS: Absolute Lymphocytes (CBC) 0.8 K/uL (0.7-4.9); Hematocrit 36.5 % (36.0-45.0); Lymphocytes % 3.3 % (15.3-44.8); MCV 89.7 fL (80-100); MPV 7.4 fL (7.6-11.3); RBC Red Blood Cell Count 4.07 M/uL (3.86-4.86)
[2022-07-29 04:43] LABS: Potassium 3.8 mEq/L (3.5-5.1)
[2022-07-29 05:17] LABS: Anisocytosis SLIGHT; Blood Morphology Comment NOTED (NOT SEEN); Platelet Estimate ADEQ; White Blood Cell Scan OK (OK)
[2022-07-29 08:05] VITALS: BP 155/95; TEMP 97
[2022-07-29] MEDS: predniSONE 20 MG TAB PO SCH (08:28)
[2022-07-29] MEDS: ENOXAPARIN 40 MG/0.4 ML SQ SCH (08:28)
[2022-07-29] MEDS: METOPROLOL TAR 50 MG TAB PO SCH (08:28)
[2022-07-29] MEDS: DULERA 200/5 (MOMETASONE/FORMOTEROL) INHALER IH SCH (08:28)
[2022-07-29] MEDS: ASPIRIN EC 81 MG TAB PO SCH (08:28)
[2022-07-29] MEDS: SPIRONOLACTONE 25 MG TABLET PO SCH (08:28)
[2022-07-29] MEDS ORDERED: FUROSEMIDE 40 MG/4 ML VIAL IV SCH (09:00)
--- NOTE | 2022-07-29 09:32 | P.DS ---
Admission Date: 07/28/22 Discharge Date: 07/29/22 Disposition: ROUTINE DISCHARGE Discharge Condition: FAIR Reason for Admission: CHF exacerbation, hypertensive urgency Brief History of Present Illness: Patient is 47 years of age mated to the hospital with abdominal pain elevated blood pressure Is a history of chronic renal failure noncompliance patient has cardiomegaly interstitial lung disease presumed underlying CHF history of diastolic heart failure We do not have a current list of her medication I sent her home on amlodipine Advair abdominal ultrasound was unremarkable Hospital Course: Patient had an unremarkable course CT of the abdomen suggested some retroperitoneal fluid abdominal ultrasound was unremarkable no complications during stay to follow-up with her primary care physician creatinine was mildly elevated she is to resume her seizure medications right count elevated I suspect is from the steroid time of discharge patient alert oriented responsive not any abdominal pain his chest was clear vital signs stable oxygenation satisfactory patient advised to quit smoking medications faxed to [facility] pharmacy Vital Signs/Physical Exam: Temp Pulse Resp BP Pulse Ox 97.0 F 64 16 155/95 H 91 07/29/22 08:00 07/29/22 08:28 07/29/22 08:00 07/29/22 08:28 07/29/22 08:00 Laboratory Data at Discharge: WBC 23.70 thou/uL (4.3-10.9) H 07/29/22 03:25 Hgb 12.4 g/dL (12.0-15.0) 07/29/22 03:25 Hct 36.5 % (36.0-45.0) 07/29/22 03:25 Plt Count 244 thou/uL (152-406) 07/29/22 03:25 Sodium 132 mEq/L (136-145) L 07/29/22 03:25 Potassium 3.8 mEq/L (3.5-5.1) 07/29/22 03:25 BUN 27 mg/dL (7-18) H 07/29/22 03:25 Creatinine 1.63 mg/dL (0.55-1.02) H 07/29/22 03:25 Glucose 146 mg/dL (74-106) H 07/29/22 03:25 Magnesium 2.0 mg/dL (1.6-2.4) 07/29/22 03:25 Total Bilirubin 1.3 mg/dL (0.2-1.0) H 07/27/22 22:44 AST 36 U/L (15-37) 07/27/22 22:44 ALT 41 U/L (13-56) 07/27/22 22:44 Alkaline Phosphatase 271 U/L (45-117) H 07/27/22 22:44 Lipase 37 U/L (13-75) 07/27/22 22:44 Home Medications: Amlodipine [Norvasc*] 10 mg PO DAILY 90 Days #90 tab 07/29/22 Fluticasone/Salmeterol [Advair 250-50 Diskus] 1 each IH BID 30 Days #60 aero 07/29/22 Furosemide [Lasix] 40 mg PO 30 MIN BEFORE HS 30 Days #30 tab 07/29/22 New Medications: Fluticasone/Salmeterol [Advair 250-50 Diskus] 1 each IH BID 30 Days #60 aero Furosemide [Lasix] 40 mg PO 30 MIN BEFORE HS 30 Days #30 tab Amlodipine [Norvasc*] 10 mg PO DAILY 90 Days #90 tab Physician Discharge Instructions: Patient to resume her seizure medications to follow-up with primary care doctor to have lab work checked again Diet: Low sodium Activity: Ad adam
--- NOTE | 2022-07-29 14:45 | EKG ---
Test Date: 2022-07-28 Test Time: 01:03:09 Credit Front Office Developer: SOLO MEASUREMENT RESULTS: Intervals: Rate: 94 NV: 192 QRSD: 92 QT: 392 QTc: 490 [place]: P: 54 NV: 192 QRS: -15 T: 139 INTERPRETIVE STATEMENTS: Normal sinus rhythm Biatrial enlargement Left ventricular hypertrophy ST & T wave abnormality, consider lateral ischemia Prolonged QT Abnormal ECG Compared to ECG 03/02/2022 20:27:32 ST (T wave) deviation now present Possible ischemia now present Prolonged QT interval now present Early repolarization no longer present Electronically Signed On 07-29-22 14:43:36 CDT by Josse Olson
== END 2022-07-29 10:12 | disposition home or self-care (01) | DRG 291 ==
LOC: ER 22:10 → ERHOLD 07-28 01:15 → 4TH 07-28 01:37
PROVIDERS: ADMIT Internal Medicine Sleep Medicine; ATTEND Internal Medicine Sleep Medicine
DX: I13.0 Hypertensive heart and chronic kidney disease with heart failure and stage 1 through stage 4 chronic kidney disease, or unspecified chronic kidney disease (principal); I50.33 Acute on chronic diastolic (congestive) heart failure; J84.9 Interstitial pulmonary disease, unspecified; N18.9 Chronic kidney disease, unspecified; J44.9 Chronic obstructive pulmonary disease, unspecified; E03.9 Hypothyroidism, unspecified; I16.0 Hypertensive urgency; G40.909 Epilepsy, unspecified, not intractable, without status epilepticus; N83.209 Unspecified ovarian cyst, unspecified side; F17.210 Nicotine dependence, cigarettes, uncomplicated; Z79.52 Long term (current) use of systemic steroids; Z79.899 Other long term (current) drug therapy; Z91.199 Patient's noncompliance with other medical treatment and regimen due to unspecified reason
CPT/HCPCS: 36415; 71045; 74177; 76700; 80048; 80053; 81001; 81025; 83690; 83735; 83880; 84439; 84443; 84484; 85025; 93005; 94640; 96361; 96374; 96375; 99285; J1650; J1940; J2270; J2405; J2930; J3535; J7030; J7512; J7613; J7644; Q9967

== ENCOUNTER 2022-07-30 06:21 | Emergency (ER) | payer SELFPAY ==
--- OUTSIDE RECORDS SUMMARY | 2022-07-30 06:24 | XMS REPORT | Continuity of Care Document ---
:1975 Author Organization [facility] t Address [address] [place] [address] Care Team Providers Name Role Phone No, Pcp [facility] Primary Care Physician Unavailable ZAIN SALAS Attending Clinician Unavailable SCOTT MCWILLIAMS Admitting Clinician Unavailable Problems Condition Condition Condition Status Onset Resolution Last Treating Co mments Source Name Details Category Date Date Treatment Clinician Date Acute Acute Disease Active 2018-[address] [facility] [address] cholecysti cholecysti 2 [facility] 00:00: Medical 00 Bernard Hypertensi Hypertensi Disease Recurre 2018-[address] [facility] [address] [facility] Seizure Seizure Disease Recurre 2018-[address] [facility] disorder disorder nce 2- [facility] 00:[facility]: Medical 00 Bernard Calculus Calculus Disease Active 2018-03 [facility] gallbladde gallbladde 00:00: Me dical r without r without 00 Cent er cholecysti cholecysti tis tis without without obstructio obstructio n n Transamini Transamini Disease Active 2018-[address] [facility] tis [facility] 00:00: Medical 00 Bernard Anemia Anemia Disease Active 2018-[address] [facility] [address] 2-02 [facility] 00:00: Medical 00 Bernard Thrombocyt Thrombocyt Disease Active 2018-[address] osis osis 2-02 [facility] 00:[facility]: Medical 00 Bernard Allergies, Adverse Reactions, Alerts Allergy Allergy Status Severity Reaction(s) Onset Inactive Treating Comm ents Source Name Type Date Date Clinician Cranberr Drug Active Itching 2018-[address] [facility] [address] [facility] Allergy 2- [facility] 00:[facility]: Medical 00 Bernard Fish Drug Active Swelling 2018-[address] [facility] [facility]aini Allergy 2- [facility] ng 00:00: Medical Products 00 Center Social History Social Habit Start Date Stop Date Quantity Comments Source History of tobacco 1992-02-[address] [facility] use 00:00:00 [facility] Alcohol Comment Medical C enter History [facility] Alcohol Std Drinks [facility]ica l Center Alcohol intake 2019-02-17 2019-02-[address] [facility] es 00:00:00 00:00:00 non-drinker of Medical Ce nter alcohol (finding) Tobacco use and 2019-02-15 2019-02-[address] [facility] exposure 00:00:00 00:00:00 non-user Medical Center History [facility] 2019-02-15 2019-02-[address] [facility] Alcohol Frequency 00:00:00 00:00:00 Medical Center History [facility] 2019-02-15 2019-02-[address] [facility] Alcohol Binge 00:00:00 00:00:[address] Cigarettes smoked 2019-02-15 2019-02-[address] [facility] current (pack per 00:00:00 00:00:00 Medical Center day) - Reported Cigarette 2019-02-15 2019-02-[address] [facility] pack-years 00:00:00 00:00:00 [facility] Center Sex Assigned At [address] [facility] 00:00:00 00:00:00 [facility] Center Smoking Status Start Date Stop Date Source Occasional tobacco smoker 2019-02-15 00:00:[address] [facility] Center Medications Ordered Filled Start Stop Current Ordering Indication Dosage Frequency Signature Comments Components Source Medication Medication Date Date Medication? Clinician (SIG) Name Name divalproex 2018-03 Yes epilepsy 125mg QD Take [address] [facility] [address] ([place]) 2-04 [facility] by [facility] 125 MG EC 10:36: mouth Medical tablet 04 daily. Bernard divalproex 2018-03 Yes epilepsy 125mg QD Take [address] [facility] ([place]) 2-04 [facility] by [facility] 125 MG EC 10:36: mouth Medical tablet 04 daily. Bernard divalproex 2018-03 Yes epilepsy 125mg QD Take [address] [facility] ([place]) 2-04 [facility] by [facility] 125 MG EC 10:36: mouth Medical tablet 04 daily. Bernard famotidine 2018-03 Yes 1{tbl} Take 1 [facility] Test 00:00:00 [code = 29023545] Medical Ce nter Future Scheduled 2021-03-18 DEPRESSION [...] cervix Medical C enter (procedure) [code = 477984067] Future Scheduled 1995 DTAP/TDAP/TD VACCINES [facility] [...] [facility] Test 00:00:00 [code = CT Colonography [facility] (combo)] Future Scheduled 1975 Screening for malignant [facility] Test 00:00:00 neoplasm of colon Medical Ce nter (procedure) [code = 692145476] Future Scheduled 1975 Screening for malignant [facility] Test 00:00:00 neoplasm of colon Medical Ce nter (procedure) [code = 128793334] Future Scheduled 1975 Screening for malignant [facility] Test 00:00:00 neoplasm of colon Medical Ce nter (procedure) [code = 777584271] Future Scheduled 1975 Screening for malignant [facility] Test 00:00:00 neoplasm of colon Medical Ce nter (procedure) [code = 719490367] Future Scheduled 1975 Sigmoidoscopy [code = [facility] Test 00:[facility]:00 Sigmoidoscopy] Medical Cente r Results Test Description Test Time Test Comments Results Result Comments Source TISSUE EXAM 2019-02-19 Surgical Pathology 12:09:00 Report Case: [id number] Authorizing Provider: Trudy James MD Collected: 02/17/2019 1126 Ordering Location: [address] Received: 02/17/2019 1147 Service Pathologist: Angela Beach MD Specimen: Gallbladder A. GALLBLADDER, CHOLECYSTECTOMY: - CHRONIC CHOLECYSTITIS WITH CHOLELITHIASIS. Signing Pathologist Direct Phone Line: [phone] deana signed by Angela Beach MD on 02/19/2019 at 12:09 [id number] renal mass Gallbladder Received in formalin labeled [...] trabeculated. The wall measures 0.2 cm thick. Guest Services Director sections are submitted in A1-A2, with the inked proximal margin is A1. PA/ew Performed.[facility], Department of Pathology, [address] [place] [address], [facility], Department of [facility], [address] [place] [address], [facility], [facility] of [facility], [address] [place] [address], CBC W/PLT COUNT & AUTO DIFFERENTIAL 2019-02-18 [...] 1 % 0-1 = 2801) BASIC METABOLIC [id number] 06:57:00 Test Item Value Reference Range Interpretation [...] APPLICABLE FOR DIALYSIS PATIEN TS. HEPATIC FUNCTION [id number] 06:57:00 Test Item Value Reference Range Interpretation [...] (test code = 347) hemolyzed HEPATIC FUNCTION [id number] 06:57:00 Test Item Value Reference Range Interpretation [...] 72 U/L 6-55 H 347) BASIC METABOLIC [id number] 06:57:00 Test Item Value Reference Range Interpretation [...] PATIEN TS. CBC W/PLT COUNT & AUTO [id number] 06:28:00 Test Item Value Reference Range Interpretation [...] PERCENT (BEAKER) (test code = 2801) SCREEN, [id number] 07:28:00 Test Item Value Reference Range Interpretation Comments TEST URINE (BEAKER) (test Negative code = 583) [id number] 07:28:00 Test Item Value Reference Range Interpretation Comments MAGNESIUM (BEAKER) 2.0 mg/dL 1.6-2.6 Specimen moderately (test code = 627) hemolyzed [id number] 07:28:00 Test Item Value Reference Range Interpretation Comments PHOSPHORUS (BEAKER) 4.0 mg/dL 2.3-4.7 Specimen moderately (test code = 604) hemolyzed BASIC METABOLIC [id number] 07:28:00 Test Item Value Reference Range Interpretation [...] APPLICABLE FOR DIALYSIS PATIEN TS. HEPATIC FUNCTION [id number] 07:28:00 Test Item Value Reference Range Interpretation [...] Specimen moderately (test code = 347) hemolyzed [id number] 07:28:00 Test Item Value Reference Range Interpretation Comments LIPASE (BEAKER) (test code = 749) 31 U/L 8-78 CBC W/PLT COUNT & AUTO [id number] 07:10:00 Test Item Value Reference Range Interpretation [...] (BEAKER) (test code = 2801) U/S, ABDOMINAL, [id number] 23:50:00Abdomen limited area? Add comment if clarification [...] Date/Time: 02/15/2019 23:50:53 URINALYSIS W/ REFLEX URINE [id number] 22:43:00 Test Item Value Reference Range Interpretation [...] code = 516) SOURCE(BEAKER) (test code = 5744) HEPATIC FUNCTION [id number] 17:03:00 Test Item Value Reference Range Interpretation [...] (BEAKER) hemolyz ed (test code = 364) [id number] 16:00:00 Test Item Value Reference Range Interpretation Comments MAGNESIUM (BEAKER) 2.1 mg/dL 1.6-2.6 Specimen slightly (test code = 627) hemolyzed BASIC METABOLIC [id number] 16:00:00 Test Item Value Reference Range Interpretation [...] NOT APPLICABLE FOR DIALYSIS PATIEN TS. PROTHROMBIN [id number] 15:31:00 Test Item Value Reference Range Interpretation [...] is 2.5-3.5 for patients wiht mechanical heart valves.[id number] 15:31:00 Test Item Value Reference Range Interpretation Comments PARTIAL THROMBOPLASTIN TIME 31.4 seconds 22.5-36.0 (BEAKER) (test code = 760) CBC W/PLT COUNT & AUTO [id number] 15:14:00 Test Item Value Reference Range Interpretation [...] 0-1 H PERCENT (BEAKER) (test code = 3142)
[2022-07-30] MEDS ORDERED: ONDANSETRON 4 MG/2 ML VIAL ONE (07:41)
[2022-07-30] MEDS ORDERED: MORPHINE 4 MG/ML SYR ONE (07:41)
[2022-07-30 07:50] LABS: Absolute Lymphocytes (CBC) 0.8 K/uL (0.7-4.9); Hematocrit 39.2 % (36.0-45.0); Lymphocytes % 4.1 % (15.3-44.8); MCV 90.4 fL (80-100); MPV 7.2 fL (7.6-11.3); RBC Red Blood Cell Count 4.33 M/uL (3.86-4.86)
[2022-07-30 08:10] LABS: Albumin 3.4 g/dL (3.4-5.0); Bilirubin Total 0.9 mg/dL (0.2-1.0); Potassium 2.9 mEq/L (3.5-5.1); Protein, Total 7.3 g/dL (6.4-8.2)
--- NOTE | 2022-07-30 08:42 | RAD REPORT ---
EXAM DESCRIPTION: CTAbdomen Pelvis W Contrast - 07/30/2022 8:23 am CLINICAL HISTORY: lower abd pain COMPARISON: Abdomen Pelvis W Contrast dated 07/27/2022; Abdomen Pelvis W Contrast dated 06/16/2021; Abdomen Pelvis W Contrast dated 02/13/2019; Abdomen Pelvis W Contrast dated 02/10/2019 TECHNIQUE: CT of the abdomen and pelvis was performed. All CT scans are performed using dose optimization technique as appropriate and may include automated exposure control or mA/KV adjustment according to patient size. FINDINGS: Lower chest: No acute abnormality. Liver: Mild intrahepatic biliary duct dilatation. Heterogeneous enhancement of the liver with peripor shaina edema. Small volume of perihepatic ascites. Nodular liver contour. Biliary: Cholecystectomy. Extrahepatic biliary ductal dilatation which tapers toward the ampulla. The common hepatic duct measures 15 millimeters. The proximal common bile duct measures 9 millimeters. Stomach: No significant focal abnormality. Duodenum: No significant focal abnormality. Pancreas: No significant abnormality. Spleen: No significant abnormality. Adrenal: No suspicious lesions. Kidney/ureter: No hydronephrosis. No renal calculi. Atrophic and scarred right kidney. Retroperitoneum: Prominent retroperitoneal venous structures and mild retroperitoneal lymphadenopathy which is likely reactive. Vascular: No aneurysm. Bowel: Sigmoid wall thickening with pericolonic stranding.. Peritoneum: No ascites or free air. Bladder: Grossly unremarkable. Reproductive: Inflammatory changes in the left adnexa. Multiloculated left adnexa fluid collection. P ossible dilated left fallopian tube. One collection measures 2.8 cm. A second collection measures 2.1 cm. Bones: No acute fracture. Other: n/a IMPRESSION: Inflammatory changes in the left lower quadrant favored to be centered in the left adnex a. The findings are suspicious for PID with tubo-ovarian abscesses. Sigmoid colonic wall thickening i s favored reactive.
--- NOTE | 2022-07-30 09:03 | EDPHYS ---
Physician Documentation [facility] Name: Geetha Khan Age: 47 yrs Sex: Female : 1975 Arrival Date: 07/30/2022 Time: 06:21 Bed 20 Private MD: ED Physician Gene Medrano HPI: 07/30 07:19 This 47 yrs old Female presents to ER via Ambulatory with complaints of Pelvic Pain. rn 07:19 The patient presents with abdominal pain in the lower abdomen. Onset: The rn symptoms/episode began/occurred 4 day(s) ago. The symptoms do not radiate. Associated signs and symptoms: Pertinent negatives: blood in stools, chest pain, constipation, diarrhea, dysuria, fever, hematuria, vaginal discharge. The symptoms are described as sharp, stabbing. Modifying factors: The symptoms are alleviated by nothing, the symptoms are aggravated by pressure. Severity of pain: At its worst the pain was moderate in the emergency department the pain is unchanged. The patient has not experienced similar symptoms in the past. The patient has been recently seen by a physician:. Pt reports just discharged from this hospital yesterday, was seen Raul for lower abd pain, diagnosed with ovarian cyst, reports returns today for continued pain. No fever. No change in pain. No new symptoms. . 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 - Social history:: Smoking status: Patient reports the use of cigarette tobacco products, smokes one-half pack cigarettes per day. - Family history:: not pertinent. - Hospitalizations: : No recent hospitalization is reported. ROS: 07:19 Constitutional: Negative for fever, chills, and weight loss, Neck: Negative for injury, rn pain, and swelling, Cardiovascular: Negative for chest pain, palpitations, and edema, Respiratory: Negative for shortness of breath, cough, wheezing, and pleuritic chest pain, Abdomen/GI: Negative for nausea, vomiting, diarrhea, and constipation Back: Negative for injury and pain, : Negative for injury, bleeding,and swelling, + vaginal discharge MS/Extremity: Negative for injury and deformity, Skin: Negative for injury, rash, and discoloration, Neuro: Negative for headache, weakness, numbness, tingling, and seizure. Exam: 07:19 Constitutional: This is a well developed, well nourished patient who is awake, alert, rn appears uncomfortable Head/Face: Normocephalic, atraumatic. Cardiovascular: Regular rate and rhythm. No pulse deficits. Respiratory: Mild tachypnea, no retractions Abdomen/GI: soft, + suprapubic tenderness and LLQ tenderness Skin: Warm, dry MS/ Extremity: Pulses equal, no cyanosis. Neuro: Awake and alert, GCS 15 Vital Signs: 07:10 BP 195 / 121; Pulse 77; Resp 18; Temp 98.1(O); Pulse Ox 100% ; Weight 63.5 kg; Height 5 db ft. 2 in. ; Pain 10/10; 07:30 BP 182 / 109; Pulse 73; Resp 22; Pulse Ox 100% on R/A; db 08:00 BP 189 / 111; Pulse 77; Resp 16; Pulse Ox 94% on R/A; db 09:30 BP 180 / 100; Pulse 91; Resp 16; Pulse Ox 95% ; db 12:00 BP 183 / 107; Pulse 99; Resp 14; Pulse Ox 95% on R/A; db 07:10 Body Mass Index 25.61 (63.50 kg, 157.48 cm) db 07:10 Pain Scale: Adult db 07:10 will recheck BP db MDM: 07:03 Patient medically screened. rn 09:01 Differential diagnosis: diverticulitis, Endometriosis, non-specific abd pain, urinary rn tract infection, PID, TOA. Data reviewed: vital signs, nurses notes, lab test result(s), radiologic studies, CT scan, and as a result, I will admit patient. Consideration of Admission/Observation Patient was admitted/placed on observation. Escalation of care including admission/observation considered. Counseling: I had a detailed discussion with the patient and/or guardian regarding: the historical points, exam findings, and any diagnostic results supporting the discharge/admit diagnosis, lab results, radiology results, the need for further work-up and treatment in the hospital, the need to transfer to another facility, [facility] does not immediately have the required specialist. 07/30 07:17 Order name: CBC with Diff; Complete Time: 08:54 rn 07/30 07:17 Order name: CMP; Complete Time: 08:54 rn 07/30 07:17 Order name: Lipase; Complete Time: 08:54 rn 07/30 07:17 Order name: Test, Urine; Complete Time: 11:17 rn 07/30 07:17 Order name: Urinalysis w/ reflexes; Complete Time: 11:17 rn 07/30 07:17 Order name: CT Abd/Pelvis - IV Contrast Only; Complete Time: 08:54 rn 07/30 07:17 Order name: IV Saline Lock; Complete Time: 07:40 rn 07/30 07:17 Order name: Labs collected and sent; Complete Time: 07:40 rn 07/30 09:03 Order name: NPO; Complete Time: 09:23 rn Administered Medications: 07:40 Drug: Ondansetron IVP 4 mg Route: IVP; Site: right antecubital; db 09:00 Follow up: Response: No adverse reaction db 07:40 Drug: morphine IVP or IV 4 mg Route: IVP; Infused Over: 4 mins; Site: right antecubital;db 09:01 Follow up: Response: No adverse reaction db 09:05 Drug: Piperacillin-Tazobactam IVPB 3.375 grams Route: IVPB; Infused Over: 60 mins; db Site: right antecubital; 10:05 Follow up: Response: No adverse reaction; IV Status: Completed infusion; IV Intake: db 100ml Disposition Summary: 07/30/22 09:03 Transfer Ordered Transfer Location: [facility] rn Reason: Higher level of care rn Condition: Stable rn Problem: an ongoing problem rn Symptoms: have improved rn Accepting Physician: (07/30/22 13:20) db Diagnosis - Tubo-ovarian abscess rn - Female pelvic inflammatory disease, unspecified rn Forms: - Medication Reconciliation Form rn - SBAR form rn Signatures: Dispatcher [employer] Gene Simon MD MD rn Benton, Danielle, RN RN db Corrections: (The following items were deleted from the chart) 09:01 07:19 Constitutional: Negative for fever, chills, and weight loss, Neck: Negative for rn injury, pain, and swelling, Cardiovascular: Negative for chest pain, palpitations, and edema, Respiratory: Negative for shortness of breath, cough, wheezing, and pleuritic chest pain, Abdomen/GI: Negative for nausea, vomiting, diarrhea, and constipation Back: Negative for injury and pain, : Negative for injury, bleeding, discharge, and swelling, MS/Extremity: Negative for injury and deformity, Skin: Negative for injury, rash, and discoloration, Neuro: Negative for headache, weakness, numbness, tingling, and seizure, rn 13:20 09:03 Dr. trinidad db
--- NOTE | 2022-07-30 09:03 | ER ---
Nurse's Notes [facility] Name: Geetha Khan Age: 47 yrs Sex: Female : 1975 Arrival Date: 07/30/2022 Time: 06:21 Bed 20 Private MD: Diagnosis: Tubo-ovarian abscess;Female pelvic inflammatory disease, unspecified Presentation: 07/30 07:10 Chief complaint: Patient states: Lower abdominal pain and pelvic pain started this AM db At Midnight. Seen Saturday for similar pain. Coronavirus screen: Vaccine status: Patient reports receiving the 2nd dose of the covid vaccine. Client denies travel out of the [place] in the last 14 days. At this time, the client does not indicate any symptoms associated with coronavirus-19. Ebola Screen: Patient negative for fever greater than or equal to 101.5 degrees Fahrenheit, and additional compatible Ebola Virus Disease symptoms Patient denies exposure to infectious person. Patient denies travel to an Ebola-affected area in the 21 days before illness onset. No symptoms or risks identified at this time. Initial Sepsis Screen: Does the patient meet any 2 criteria? No. Patient's initial sepsis screen is negative. Does the patient have a suspected source of infection? No. Patient's initial sepsis screen is negative. Risk Assessment: Do you want to hurt yourself or someone else? Patient reports no desire to harm self or others. Onset of symptoms was July 30, 2022 at 00:00. 07:10 Method Of Arrival: Ambulatory db 07:10 Acuity: CORRINA 3 db Triage Assessment: 07:12 General: Appears in no apparent distress. uncomfortable, Behavior is cooperative, db anxious. Pain: Complains of pain in pelvis and abdomen. 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 - Social history:: Smoking status: Patient reports the use of cigarette tobacco products, smokes one-half pack cigarettes per day. - Family history:: not pertinent. - Hospitalizations: : No recent hospitalization is reported. Screenin:[facility] ED Fall Risk Assessment (Adult) History of falling in the last 3 months, db including since admission No falls in past 3 months (0 pts). Abuse screen: Denies threats or abuse. Denies injuries from another. Nutritional screening: No deficits noted. Tuberculosis screening: No symptoms or risk factors identified. Assessment: 07:13 Reassessment: Patient appears in no apparent distress at this time. Patient and/or db family updated on plan of care and expected duration. Pain level reassessed. Patient is alert, oriented x 3, equal unlabored respirations, skin warm/dry/pink. Neuro: Level of Consciousness is awake, alert, obeys commands, Oriented to person, place, time, situation, Speech is normal. GI: Abdomen is flat, non-distended, Reports lower abdominal pain, Patient currently denies vomiting. 08:13 Reassessment: Patient appears in no apparent distress at this time. Patient and/or db family updated on plan of care and expected duration. Pain level reassessed. Patient is alert, oriented x 3, equal unlabored respirations, skin warm/dry/pink. Patient states feeling better. General: Appears in no apparent distress. comfortable, Behavior is calm, cooperative. 10:30 Reassessment: Patient appears in no apparent distress at this time. Patient and/or db family updated on plan of care and expected duration. Pain level reassessed. Patient is alert, oriented x 3, equal unlabored respirations, skin warm/dry/pink. pt sleeping. 11:30 Reassessment: Patient appears in no apparent distress at this time. Patient and/or db family updated on plan of care and expected duration. Pain level reassessed. Patient is alert, oriented x 3, equal unlabored respirations, skin warm/dry/pink. 12:34 Reassessment: report given to YANETH Wright at [facility]. db Vital Signs: 07:10 BP 195 / 121; Pulse 77; Resp 18; Temp 98.1(O); Pulse Ox 100% ; Weight 63.5 kg; Height 5 db ft. 2 in. ; Pain 1010; 07:30 BP 182 / 109; Pulse 73; Resp 22; Pulse Ox 100% on R/A; db 08:00 BP 189 / 111; Pulse 77; Resp 16; Pulse Ox 94% on R/A; db 09:30 BP 180 / 100; Pulse 91; Resp 16; Pulse Ox 95% ; db 12:00 BP 183 / 107; Pulse 99; Resp 14; Pulse Ox 95% on R/A; db 07:10 Body Mass Index 25.61 (63.50 kg, 157.48 cm) db 07:10 Pain Scale: Adult db 07:10 will recheck BP db ED Course: 06:23 Patient arrived in ED. [id number] 07:03 Gene Medrano MD is Attending Physician. rn 07:04 Yeimy Martel RN is Primary Nurse. db 07:12 Triage completed. db 07:12 Arm band placed on Patient placed in an exam room. db 07:30 Inserted saline lock: 20 gauge in right antecubital area, using aseptic technique. db Blood collected. 08:14 Patient has correct armband on for positive identification. Bed in low position. Call db light in reach. Side rails up X2. Pulse ox on. NIBP on. 08:25 CT Abd/Pelvis - IV Contrast Only In Process Unspecified. EDMS 10:21 initiated transfer to [facility]. bd 12:16 pt accepted in transfer to [facility] by dr leiva admin approval given by arley mack,pt going to room 518. 12:58 No provider procedures requiring assistance completed. Patient transferred, IV remains ko1 in place. Administered Medications: 07:40 Drug: Ondansetron IVP 4 mg Route: IVP; Site: right antecubital; db 09:00 Follow up: Response: No adverse reaction db 07:40 Drug: morphine IVP or IV 4 mg Route: IVP; Infused Over: 4 mins; Site: right antecubital;db 09:01 Follow up: Response: No adverse reaction db 09:05 Drug: Piperacillin-Tazobactam IVPB 3.375 grams Route: IVPB; Infused Over: 60 mins; db Site: right antecubital; 10:05 Follow up: Response: No adverse reaction; IV Status: Completed infusion; IV Intake: db 100ml Medication: 12:58 VIS not applicable for this client. ko1 Intake: 10:05 IV: 100ml; Total: 100ml. db Outcome: 09:03 ER care complete, transfer ordered by . rn 12:58 Transferred by ground [facility]. to [facility], Transfer form ko1 completed. X-rays sent w/ patient. 12:58 Condition: stable 12:58 Instructed on the need for transfer. 13:20 Patient left the ED. db Signatures: Dispatcher [employer] Sandie Haywood Roman, MD MD rn Jeffries, Jennifer [id number] Oliver, Kathy, RN RN ko1 Yeimy Martel RN RN db
[2022-07-30] MEDS ORDERED: PIPERACIL/TAZO 3.375 GM VIAL IV ONE (09:12)
[2022-07-30] MEDS ORDERED: NA CHLORIDE 0.9% 100 ML ONE (09:12)
[2022-07-30 11:02] LABS: Urine Bacteria <20 /HPF (<20); Urine Bilirubin NEGATIVE (Negative); Urine Blood 3+ (OVER) (Negative); Urine Clarity Clear (Clear); Urine Color Yellow (Yellow); Urine Glucose NEGATIVE (Negative); Urine Mucus Slight /HPF (None Seen); Urine Protein 1+ (Negative); Urine Urobilinogen 1+ (Normal)
[2022-07-30 11:03] LABS: Specific Gravity > 1.030 (1.005-1.030)
[2022-07-30 13:40] VITALS: O2SAT 95
[2022-07-30 13:42] VITALS: BP 183/107
== END 2022-07-30 13:20 | disposition short-term general hospital (02) ==
LOC: ER 06:21
DX: N70.93 Salpingitis and oophoritis, unspecified (principal); F17.210 Nicotine dependence, cigarettes, uncomplicated; Z91.013 Allergy to seafood; Z91.018 Allergy to other foods
CPT/HCPCS: 36415; 74177; 80053; 81001; 81025; 83690; 85025; 96365; 96375; 99285; J2405; J2543; Q9967

== ENCOUNTER 2022-08-04 23:37 | Emergency (ER) | payer SELFPAY ==
--- OUTSIDE RECORDS SUMMARY | 2022-08-04 23:40 | XMS REPORT | Continuity of Care Document ---
:1975 Author Organization [facility] t Address [address] [facility] [address] [place] [id number] Care Team Providers Name Role Phone No, Pcp [facility] Primary Care Physician Unavailable CLIFTON DE LUNA Attending Clinician Unavailable KELLY MARIEE Attending Clinician Unavailable DAYRON SIFUENTES Attending Clinician Unavailable ZAIN SALAS Attending Clinician Unavailable LEONID HARRIS Admitting Clinician Unavailable DAYRON SIFUENTES Admitting Clinician Unavailable SCOTT MCWILLIAMS Admitting Clinician Unavailable Problems Condition Condition Condition Status Onset Resolution Last Treating Co mments Source Name Details Category Date Date Treatment Clinician Date Acute Acute Disease Active 2018-[address] [facility] [address] cholecysti cholecysti 2-03 [facility] t[facility] 00:[facility]: [facility] 00 Center Calculus Calculus Disease Active 2018-03 [facility] gallbladde gallbladde 00:00: Me dical r without r without 00 Cent er cholecysti cholecysti tis tis without without obstructio obstructio n n Transamini Transamini Disease Active 2018-[address] [facility]is 2- [facility] Hypertensi Hypertensi Disease Recurre 2018-[address] [facility] [facility] on nce 04[facility]19 [facility] Seizure Seizure Disease Recurre 2018-[address] disorder disorder nce 04-19 [facility] Anemia Anemia Disease Active 2018-[address] [facility] 2[facility]02 [facility] Thrombocyt Thrombocyt Disease Active 2018-[address] osis osis - [facility] Center Allergies, Adverse Reactions, Alerts Allergy Allergy Status Severity Reaction(s) Onset Inactive Treating Comm ents Source Name Type Date Date Clinician ASPIRIN Allergy Active High Anaphylaxis SLE H 515 00:00: 00 MUSHROOM Allergy Active High Anaphylaxis 0 [facility] 515 00:00: 00 SHELLFIS Allergy Active High Anaphylaxis [facility] H 07-30 CONTAINI 00:00: NG 00 PRODUCTS CRANBERR Allergy Active High Anaphylaxis 2018-03 [facility] Y 2 00:00: 00 Cranberr Drug Active Itching 2018-[address] [facility] y Allergy 04-18 [facility] Fish Drug Active Swelling 2018-[address] [facility] Containi Allergy 04-18 [facility] ng 00:00: Medical Products 00 Center FISH Allergy Active High Swelling 2018-03 [facility] CONTAINI 2- NG 00:00: PRODUCTS 00 Social History Social Habit Start Date Stop Date Quantity Comments Source History of tobacco 1992-02-[address] [facility] use [facility]00 [facility] History [facility] Alcohol Std Drinks [facility] History [facility] Alcohol Comment Medical C enter Alcohol intake 2019-02-17 2019-02-[address] [facility] [facility] es 00:00:00 00:00:00 non-drinker of Medical Ce nter alcohol (finding) History [facility] 2019-02-15 2019-02-[address] [facility] Alcohol Binge 00:00:00 00:00:[address] Cigarettes smoked 2019-02-15 2019-02-[address] [facility] current (pack per 00:00:00 00:00:00 Medical Center day) - Reported Cigarette 2019-02-15 2019-02-[address] [facility] pack-years 00:00:00 00:00:00 Medical Center Tobacco use and 2019-02-15 2019-02-[address] [facility] exposure 00:00[facility]00 00:00:00 non-user Medical Center History SDOH 2019-02-15 2019-02-[address] [facility] Alcohol Frequency 00:00:00 00:00:00 Medical Center Sex Assigned At [address] [facility] 00:00:00 00:00:00 Medical Center Smoking Status Start Date Stop Date Source Occasional tobacco smoker 2019-02-15 00:00:00 I [facility] Medications Ordered Filled Start Stop Current [...] Name Observation Time Observation Value Comments Source WEIGHT 2022-07-30 14:32:00 58.968 kg HEIGHT 2022-07-30 14:32:00 157.5 cm WEIGHT 2022-07-30 14:32:00 58.968 kg HEIGHT 2022-07-30 14:32:00 157.5 cm Procedures This patient has no known procedures. Plan of Care Planned Activity Planned Date Details Comments Source Future Scheduled 2021-11-16 INFLUENZA VACCINE (#1) [facility] 00:00:00 [code = INFLUENZA Medical Ce nter VACCINE (#1)] Future Scheduled 2021 Lipid panel (procedure) [facility] Test 00:00:00 [code = 43611510] Medical Ce nter Future Scheduled 2021-03-18 DEPRESSION [...] cervix Medical C enter (procedure) [code = 596658523] Future Scheduled 1995 DTAP/TDAP/TD VACCINES CH I [...] [facility] Test 00:00:00 [code = CT Colonography [facility] (combo)] Future Scheduled 1975 Screening for malignant [facility] Test 00:00:00 neoplasm of colon Medical Ce nter (procedure) [code = 362012389] Future Scheduled 1975 Screening for malignant [facility] Test 00:00:00 neoplasm of colon Medical Ce nter (procedure) [code = 096738266] Future Scheduled 1975 Screening for malignant [facility] Test 00:00:00 neoplasm of colon Medical Ce nter (procedure) [code = 844338304] Future Scheduled 1975 Screening for malignant [facility] Test 00:00:00 neoplasm of colon Medical Ce nter (procedure) [code = 159385829] Future Scheduled 1975 Sigmoidoscopy [code = [facility] 00:[facility]:00 S[facility]oidoscopy] Medical Cente r Encounters Start End Encounter Admission Attending Care Care Encounter Source Date/Time Date/Time Type Type Clinicians Facility Department ID 2022-07-31 2022-08-03 [id number] [facility] 04:37:00 20:00:00 CLIFTON 2022-07-30 2022-07-31 [facility] [id number] [facility] 14:07:00 04:04:00 DAYRON Results Test Description Test Time Test Comments Results Result Comments Source BASIC METABOLIC PANEL 2022-08-03 05:26:56 Test Item Value Reference Range Interpretation Comme nts SODIUM (BEAKER) (test 131 meq/L 136-145 L code = 381) POTASSIUM (BEAKER) 3.3 meq/L 3.5-5.1 L (test code = 379) CHLORIDE (BEAKER) (test 96 meq/L 98-107 L code = 382) CO2 (BEAKER) (test code 23 meq/L 22-29 = 355) BLOOD UREA NITROGEN 16 mg/dL 7-21 (BEAKER) (test code = 354) CREATININE (BEAKER) 1.38 mg/dL 0.57-1.25 H (test code = 358) GLUCOSE RANDOM (BEAKER) 99 mg/dL 70-105 (test code = 652) CALCIUM (BEAKER) (test 8.6 mg/dL 8.4-10.2 code = 697) EGFR (BEAKER) (test 48 mL/min/1.73 sq In terpretation of eGFR values code = 1092) m Stage Descripti on Result G1 Normal or high >=90 G2 Mildly decreased 60-89 G3a Mildly to moderately 45-5 9 G3b Moderately to severely 30- 44 G4 Severly decreased 15-29 G5 Kidney failure <15Repo rted eGFR is based on the CK D-EPI 2020 equation that d oes not use a race coefficien tEstimated GFR is not as accurate as Creatinine Clearance in pr edicting glomerular filt ration rate. Estimated GFR i s not applicable for dialysis mable davis Egg Tester ID - MMSpecimen slightly ictericCBC (HEMOGRAM ONLY)2022-08-03 05:08:50 Test Item Value Reference Range Interpretation Comments WHITE BLOOD CELL COUNT (BEAKER) 26.2 K/ L 3.5-10.5 H (test code = 775) RED BLOOD CELL COUNT (BEAKER) 3.85 M/ L 3.93-5.22 L (test code = 761) HEMOGLOBIN (BEAKER) (test code = 11.6 GM/DL 11.2-15.7 410) HEMATOCRIT (BEAKER) (test code = 33.8 % 34.1-44.9 L 411) MEAN CORPUSCULAR VOLUME (BEAKER) 88 fL 79-95 (test code = 753) MEAN CORPUSCULAR HEMOGLOBIN 30.1 pg 25.6-32.2 (BEAKER) (test code = 751) MEAN CORPUSCULAR HEMOGLOBIN CONC 34.3 GM/DL 32.2-35.5 (BEAKER) (test code = 752) RED CELL DISTRIBUTION WIDTH 16.7 % 11.7-14.4 H (BEAKER) (test code = 412) PLATELET COUNT (BEAKER) (test 173 K/CU MM 150-450 code = 756) MEAN PLATELET VOLUME (BEAKER) 9.0 fL 9.4-12.3 L (test code = 754) NUCLEATED RED BLOOD CELLS 0 /100 WBC 0-0 (BEAKER) (test code = 413) (CELLAVISION MANUAL DIFF)2022-08-02 17:01:20 Test Item Value Reference Range Interpretation Comments NEUTROPHILS - REL 95 % (CELLAVISION)(BEAKER) (test code = 2816) MONOCYTES - REL 4 % (CELLAVISION)(BEAKER) (test code = 2818) ATYPICAL LYMPHOCYTES - REL 1 % 0-0 H (CELLAVISION)(BEAKER) (test code = 2829) NEUTROPHILS - ABS 27.84 K/ul 1.56-6.13 H (CELLAVISION)(BEAKER) (test code = 2830) MONOCYTES - ABS 1.17 K/uL 0.24-0.36 H (CELLAVISION)(BEAKER) (test code = 2832) ATYPICAL LYMPHOCYTES - ABS 0.29 K/uL 0.00-0.00 H (CELLAVISION)(BEAKER) (test code = 2858) TOTAL COUNTED (BEAKER) (test code 100 = 1351) PLT MORPHOLOGY (BEAKER) (test code Normal = 486) SMUDGE CELLS (BEAKER) (test code = Present 1371) ANISOCYTOSIS (BEAKER) (test code = 1+ few 961) POIKILOCYTES (BEAKER) (test code = 3+ many 966) PLATELET CONCENTRATION Decreased (CELLAVISION)(BEAKER) (test code = 3438) Egg Tester ID - Salena comments: Slide comments:CBC W/PLT COUNT & AUTO [id number] 14:52:12 Test Item Value Reference Range Interpretation Comments WHITE BLOOD CELL COUNT 29.3 K/ L 3.5-10.5 H (BEAKER) (test code = 775) RED BLOOD CELL COUNT 3.98 M/ L 3.93-5.22 (BEAKER) (test code = 761) HEMOGLOBIN (BEAKER) 11.8 GM/DL 11.2-15.7 (test code = 410) HEMATOCRIT (BEAKER) 35.0 % 34.1-44.9 (test code = 411) MEAN CORPUSCULAR 88 fL 79-95 Discordant from VOLUME (BEAKER) (test previo us results code = 753) MEAN CORPUSCULAR 29.6 pg 25.6-32.2 HEMOGLOBIN (BEAKER) (test code = 751) MEAN CORPUSCULAR 33.7 GM/DL 32.2-35.5 HEMOGLOBIN CONC (BEAKER) (test code = 752) RED CELL DISTRIBUTION 16.6 % 11.7-14.4 H WIDTH (BEAKER) (test code = 412) PLATELET COUNT 144 K/CU MM 150-450 L (BEAKER) (test code = 756) MEAN PLATELET VOLUME 8.5 fL 9.4-12.3 L (BEAKER) (test code = 754) NUCLEATED RED BLOOD 0 /100 WBC 0-0 CELLS (BEAKER) (test code = 413) BASIC METABOLIC [id number] 13:40:34 Test Item Value Reference Range Interpretation Comments SODIUM (BEAKER) 131 meq/L 136-145 L (test code = 381) POTASSIUM 3.4 meq/L 3.5-5.1 L (BEAKER) (test code = 379) CHLORIDE (BEAKER) 96 meq/L 98-107 L (test code = 382) CO2 (BEAKER) 25 meq/L 22-29 (test code = 355) BLOOD UREA 17 mg/dL 7-21 NITROGEN (BEAKER) (test code = 354) CREATININE 1.32 mg/dL 0.57-1.25 H (BEAKER) (test code = 358) GLUCOSE RANDOM 143 mg/dL 70-105 H (WESLEY) (test code = 652) CALCIUM (WESLEY) 8.5 mg/dL 8.4-10.2 (test code = 697) EGFR (WESLEY) 50 Interpretatio n of eGFR (test code = mL/min/1.73 values Stage De scription 1092) sq m Result G1 Ceci l or high >=90 G2 Mildly decreased 60-89 G3a Mildl y to moderately 45-5 9 G3b Moderately to s everely 30-44 G4 Severl y decreased 15-29 G5 Kidney failure <15Reported eGF R is based on the CKD-EPI 2020 equation that d oes not use a race coefficientEsti mated GFR is not as accur ate as Creatinine María Elena zain in predicting glom erular filtration rate . Estimated GFR is not appl icable for dialysis patien ts Egg Tester ID - ADMINSpecimen moderately ictericMYOCARD IMAGING, MULTI, PHARM, [id number] 15:12:00Unlisted Reason for Exam - Click Yes and Enter Reason Below->NoKAISER HOS[facility]ENTERName: GE[facility]HA MINOR : 1975 Sex: FFINAL REPORT PROCEDURE: MYOCARDIAL PERFUSION SPECT IMAGING (Rest/Stress)CPT CODE: 25635 INDICATION: Cardiac screening, high CAD risk CARDIOVASCULAR PROFILE:CAD History: History of MISymptoms: NoneRisk Factors: Hypertension, tobacco useBMI: 23.8Medications: Atorvastatin, nifedipine STRESS PROTOCOL:Pharmacologic stress was achieved with a 10-second intravenous infusion of regadenoson 0.4 mg. The radiopharmaceutical was administered 30 seconds after the start of the regadenoson infusion. IMAGING PROTOCOL:10.2 mCi of Tc-99m sestamibi was injected intravenously at rest, and gated SPECT images were obtained. Then, 31.3 mCi of Tc-99m sestamibi was injected intravenously at peak stress, and gated SPECT images were obtained. Image quality is good. REST FINDINGS:HR: 93/minBP: 136/78 mmHgPrelim. EKG: Normal sinus rhythm with LVH.Perfusion: Normal.Wall Motion: Normal (LVEF 54%).LV Volume: Increased. STRESS FINDINGS:HR: 97/min (55% of MPHR)BP: 131/78 mmHgPrelim. EKG: No ischemic changes.Symptoms: None (treatment not required).Perfusion: Normal.Wall Motion: Normal (LVEF 58%).LV Volume: Not significantly changed from rest. IMPRESSION:1.Abnormal study due to increased LV EDV.2. Normal myocardial perfusion.3. Normal resting LVEF, which does not deteriorate with stress.4. Normal extracardiac tracer distribution.5. There is no prior study for comparison. Signed: Marilyn Cerna [facility] Verified Date/Time: 08/01/2022 15:12:23 HEMOGLOBIN A1C 2022-08-01 13:52:52 Test Item Value Reference Range Interpretation Comments HEMOGLOBIN A1C 5.0 % See_Comment [Automated m essage] ELECTROPHORESIS (BEAKER) The system which (test code = 3811) generated this result transmitted ref erence range: <=5.6%. The reference range was not used to int erpret this result as normal/abnormal . "The A1c is measured using a NGSP-certified method. HbA1c value equal to or greater than 6.5% as thediagnosis cutoff for diabetes. An HbA1c value of 5.7- 6.4% indicates increased risk for diabetes (prediabetes)."Egg Tester ID - ADM (CELLAVISION MANUAL DIFF)2022-08-01 08:26:35 Test Item Value Reference Range Interpretation Comments NEUTROPHILS - REL 89 % (CELLAVISION)(BEAKER) (test code = 2816) LYMPHOCYTES - REL 3 % (CELLAVISION)(BEAKER) (test code = 2817) MONOCYTES - REL 2 % (CELLAVISION)(BEAKER) (test code = 2818) BANDS - REL (CELLAVISION)(BEAKER) 6 % 0-10 (test code = 2826) NEUTROPHILS - ABS 21.27 K/ul 1.56-6.13 H (CELLAVISION)(BEAKER) (test code = 2830) LYMPHOCYTES - ABS 0.72 K/ul 1.18-3.74 L (CELLAVISION)(BEAKER) (test code = 2831) MONOCYTES - ABS 0.48 K/uL 0.24-0.36 H (CELLAVISION)(BEAKER) (test code = 2832) BANDS - ABS (CELLAVISION)(BEAKER) 1.43 K/uL 0.00-0.80 H (test code = 2840) TOTAL COUNTED (BEAKER) (test code 100 = 1351) PLT MORPHOLOGY (BEAKER) (test Normal code = 486) SMUDGE CELLS (BEAKER) (test code Present = 1371) POLYCHROMATOPHILLIC RBCS(BEAKER) 1+ few (test code = 478) ANISOCYTOSIS (BEAKER) (test code 1+ few = 961) MICROCYTES (BEAKER) (test code = 1+ few 965) POIKILOCYTES (BEAKER) (test code 2+ moderate = 966) SPHEROCYTES (BEAKER) (test code = 1+ few 768) OVALOCYTES (BEAKER) (test code = 1+ few 477) KEVIN CELLS (BEAKER) (test code = 2+ moderate 474) PLATELET CONCENTRATION Decreased (CELLAVISION)(BEAKER) (test code = 3438) Egg Tester ID - Remy CheneyonRegis comments: Slide comments:CBC W/PLT COUNT & AUTO [id number] 08:26:34 Test Item Value Reference Range Interpretation Comments WHITE BLOOD CELL COUNT (BEAKER) 23.9 K/ L 3.5-10.5 H (test code = 775) RED BLOOD CELL COUNT (BEAKER) 4.06 M/ L 3.93-5.22 (test code = 761) HEMOGLOBIN (BEAKER) (test code = 12.4 GM/DL 11.2-15.7 410) HEMATOCRIT (BEAKER) (test code = 37.3 % 34.1-44.9 411) MEAN CORPUSCULAR VOLUME (BEAKER) 92 fL 79-95 (test code = 753) MEAN CORPUSCULAR HEMOGLOBIN 30.5 pg 25.6-32.2 (BEAKER) (test code = 751) MEAN CORPUSCULAR HEMOGLOBIN CONC 33.2 GM/DL 32.2-35.5 (BEAKER) (test code = 752) RED CELL DISTRIBUTION WIDTH 16.9 % 11.7-14.4 H (BEAKER) (test code = 412) PLATELET COUNT (BEAKER) (test 146 K/CU MM 150-450 L code = 756) MEAN PLATELET VOLUME (BEAKER) 8.8 fL 9.4-12.3 L (test code = 754) NUCLEATED RED BLOOD CELLS 0 /100 WBC 0-0 (BEAKER) (test code = 413) HCG, QUANTITATIVE, [id number] 05:48:18 Test Item Value Reference Range Interpretation Comments GONADOTROPIN, CHORIONIC (HCG) QUANT < mIU/mL 0-10 (BEAKER) (test code = 649) Non- Females: <10 mIU/mL Females: Gestation Age Reference Range(mIU/mL) 0.2-1 Week 5-50 1-2 Weeks 50-500 2-3 Weeks 100-5,000 3-4 Weeks 500-10,000 4-5 Weeks 1,000-50,000 5-6 Weeks 10,000-100,000 6-8 Weeks 15,000- 200,000 2-3 Months 10,000-100,000 Egg Tester ID - DBBASIC METABOLIC PANEL 2022-08-01 05:41:39 Test Item Value Reference Range Interpretation Comments SODIUM (BEAKER) 133 meq/L 136-145 L (test code = 381) POTASSIUM 3.6 meq/L 3.5-5.1 (BEAKER) (test code = 379) CHLORIDE (BEAKER) 97 meq/L 98-107 L (test code = 382) CO2 (BEAKER) 26 meq/L 22-29 (test code = 355) BLOOD UREA 15 mg/dL 7-21 NITROGEN (BEAKER) (test code = 354) CREATININE 1.20 mg/dL 0.57-1.25 (BEAKER) (test code = 358) GLUCOSE RANDOM 84 mg/dL 70-105 (BEAKER) (test code = 652) CALCIUM (BEAKER) 8.6 mg/dL 8.4-10.2 (test code = 697) EGFR (BEAKER) 57 Interpretatio n of eGFR (test code = mL/min/1.73 values Stage De scription 1092) sq m Result G1 Ceci l or high >=90 G2 Mildly decreased 60-89 G3a Mildl y to moderately 45-5 9 G3b Moderately to s everely 30-44 G4 Severl y decreased 15-29 G5 Kidney failure <15Reported eGF R is based on the CKD-EPI 2020 equation that d oes not use a race coefficientEsti mated GFR is not as accur ate as Creatinine María Elena zain in predicting glom erular filtration rate . Estimated GFR is not appl icable for dialysis patien ts Egg Tester [employer] WSpecimen moderately [id number] 05:41:38 Test Item Value Reference Range Interpretation Comments MAGNESIUM (BEAKER) (test code = 1.7 mg/dL 1.6-2.6 627) Egg Tester [employer] [id number] 05:41:38 Test Item Value Reference Range Interpretation Comments PHOSPHORUS (BEAKER) (test code = 3.0 mg/dL 2.3-4.7 604) Egg Tester [employer] WPT/[id number] 05:39:59 Test Item Value Reference Range Interpretation Comments PROTIME (BEAKER) (test code = 18.0 seconds 11.9-14.2 H 759) INR (BEAKER) (test code = 370) 1.59 <=5.90 PARTIAL THROMBOPLASTIN TIME 38.7 seconds 22.5-36.0 H (BEAKER) (test code = 760) RECOMMENDED COUMADIN/WARFARIN INR THERAPY RANGESSTANDARD DOSE: 2.0 - 3.0 Includes: PROPHYLAXIS for venous thrombosis, systemic embolization; TREATMENT for venous thrombosis and/or pulmonary embolus.HIGH RISK: Target INR is 2.5-3.5 for patients with mechanical heart valves.LIPID [id number] 22:24:08 Test Item Value Reference Range Interpretation Comments TRIGLYCERIDES (BEAKER) (test code = 51 mg/dL 540) CHOLESTEROL (BEAKER) (test code = 102 mg/dL 631) HDL CHOLESTEROL (BEAKER) (test code 45 mg/dL = 976) LDL CHOLESTEROL CALCULATED (WESLEY) 47 mg/dL (test code = 633) Triglyceride Reference Range: Low Risk <150 Borderline 150-199 High Risk 200- 499 Very High Risk >=500Cholesterol Reference Range: Low Risk <200 Borderline 200-239 High Risk >240HDL Cholesterol Reference Range: Low Risk >=60 High Risk <40LDL Cholesterol Reference Range: Optimal <100 Near Optimal 100-129 Borderline 130-159 High 160-189 Very High >=190 Egg Tester ID - [id number] ID - [id number] ID - [id number] slightly icteric U/S, ENDOVAGINAL (EV)2022-07-31 14:38:00Reason for exam:->concern for TOA [place] Irineo : 1975 Sex: FFINAL REPORT TECHNIQUE: Transabdominal and transvaginal grayscale ultrasound of the pelvis with color Doppler and spectral Doppler ultrasound of the ovaries. INDICATION: concern for TOA. COMPARISON: Outside facility CT from 07/30/2022. FINDINGS: UTERUS: The uterus measures 9.6 x 5.3 x 7.3 cm. The endometrial echo complex measures 1 cm, within normal limits. Nabothian cysts in the cervix. OVARIES/ADNEXA: The right ovary measures 2.9 x 1.5 x 3 cm, and the left ovary measures 5.8 x 4.2 x5 cm. Arterial and venous spectral waveforms detected in both ovaries. The left ovary is prominent, the likely fluid collections and tubular, enhancing structure in the left adnexum are not definitely visualized in this examination. An anechoic structure in the left ovary measures 2.1 cm and has a configuration most like a follicle. PELVIS: No free fluid. IMPRESSION: No definite tubo-ovarian abscess is seen on this ultrasound. The tubular peripherally enhancing structure and likely abscesses either within or adjacent to the ovary on the prior CT are not confidently visualized on this ultrasound. Ananechoic structure in the left ovary has an appearance most like a dominant follicle. If the patientis worsening clinically, consider a repeat CT. If the patient is improving clinically, consider continued follow-up imaging with ultrasound. Signed: Jose Cruz Mendoza [facility]ort Verified Date/Time: 07/31/2022 14:38:44 U/S, [id number] 14:38:00Reason for exam:->concern for TOASHARP [place]A VISTAName: IVÁN GEETHA L : 1975 Sex: FFINAL REPORT TECHNIQUE: Transabdominal and transvaginal grayscale ultrasound of the pelvis with color Doppler and spectral Doppler ultrasound of the ovaries. INDICATION: concern for TOA. COMPARISON: Outside facility CT from 07/30/2022. FINDINGS: UTERUS: The uterus measures 9.6 x 5.3 x 7.3 cm. The endometrial echo complex measures 1 cm, within normal limits. Nabothian cysts in the cervix. OVARIES/ADNEXA: The right ovary measures 2.9 x 1.5 x 3 cm, and the left ovary measures 5.8 x 4.2 x5 cm. Arterial and venous spectral waveforms detected in both ovaries. The left ovary is prominent, the likely fluid collections and tubular, enhancing structure in the left adnexum are not definitely visualized in this examination. An anechoic structure in the left ovary measures 2.1 cm and has a configuration most like a follicle. PELVIS: No free fluid. IMPRESSION: No definite tubo-ovarian abscess is seen on this ultrasound. The tubular peripherally enhancing structure and likely abscesses either within or adjacent to the ovary on the prior CT are not confidently visualized on this ultrasound. Ananechoic structure in the left ovary has an appearance most like a dominant follicle. If the patientis worsening clinically, consider a repeat CT. If the patient is improving clinically, consider continued follow-up imaging with ultrasound. Signed: Jose Cruz Mendoza [facility] Verified Date/Time: 07/31/2022 14:38:44 U/S, DUPLEX, [id number] 14:38:00 [place] Irineo : 1975 Sex: FFINAL REPORT TECHNIQUE: Transabdominal and transvaginal grayscale ultrasound of the pelvis with color Doppler and spectral Doppler ultrasound of the ovaries. INDICATION: concern for TOA. COMPARISON: Outside facility CT from 07/30/2022. FINDINGS: UTERUS: The uterus measures 9.6 x 5.3 x 7.3 cm. The endometrial echo complex measures 1 cm, within normal limits. Nabothian cysts in the cervix. OVARIES/ADNEXA: The right ovary measures 2.9 x 1.5 x 3 cm, and the left ovary measures 5.8 x 4.2 x5 cm. Arterial and venous spectral waveforms detected in both ovaries. The left ovary is prominent, the likely fluid collections and tubular, enhancing structure in the left adnexum are not definitely visualized in this examination. An anechoic structure in the left ovary measures 2.1 cm and has a configuration most like a follicle. PELVIS: No free fluid. IMPRESSION: No definite tubo-ovarian abscess is seen on this ultrasound. The tubular peripherally enhancing structure and likely abscesses either within or adjacent to the ovary on the prior CT are not confidently visualized on this ultrasound. Ananechoic structure in the left ovary has an appearance most like a dominant follicle. If the patientis worsening clinically, consider a repeat CT. If the patient is improving clinically, consider continued follow-up imaging with ultrasound. Signed: Jose Cruz Mendoza [facility] Verified Date/Time: 07/31/2022 14:38:44 CBC W/PLT COUNT & AUTO [id number] 03:57:39 Test Item Value Reference Range Interpretation Comments WHITE BLOOD CELL COUNT (BEAKER) 23.9 K/ L 4.0-10.0 H (test code = 775) RED BLOOD CELL COUNT (BEAKER) 4.49 M/ L 4.00-5.00 (test code = 761) HEMOGLOBIN (BEAKER) (test code = 14.3 GM/DL 12.0-15.5 410) HEMATOCRIT (BEAKER) (test code = 41.2 % 36.0-46.0 411) MEAN CORPUSCULAR VOLUME (BEAKER) 92 fL 82-99 (test code = 753) MEAN CORPUSCULAR HEMOGLOBIN 31.8 pg 27.0-33.0 (BEAKER) (test code = 751) MEAN CORPUSCULAR HEMOGLOBIN CONC 34.7 GM/DL 32.0-36.0 (BEAKER) (test code = 752) RED CELL DISTRIBUTION WIDTH 16.8 % 12.0-15.0 H (BEAKER) (test code = 412) PLATELET COUNT (BEAKER) (test 202 K/CU MM 150-430 code = 756) MEAN PLATELET VOLUME (BEAKER) 8.7 fL 6.0-11.5 (test code = 754) NUCLEATED RED BLOOD CELLS 0 /100 WBC 0-0 (BEAKER) (test code = 413) NEUTROPHILS RELATIVE PERCENT 94 % (BEAKER) (test code = 429) LYMPHOCYTES RELATIVE PERCENT 2 % (BEAKER) (test code = 430) MONOCYTES RELATIVE PERCENT 3 % (BEAKER) (test code = 431) EOSINOPHILS RELATIVE PERCENT 0 % (BEAKER) (test code = 432) BASOPHILS RELATIVE PERCENT 0 % (BEAKER) (test code = 437) NEUTROPHILS ABSOLUTE COUNT 22.48 K/ L 1.80-8.00 H (BEAKER) (test code = 670) LYMPHOCYTES ABSOLUTE COUNT 0.55 K/ L 1.48-4.50 L (BEAKER) (test code = 414) MONOCYTES ABSOLUTE COUNT (BEAKER) 0.60 K/ L 0.00-1.30 (test code = 415) EOSINOPHILS ABSOLUTE COUNT 0.01 K/ L 0.00-0.50 (BEAKER) (test code = 416) BASOPHILS ABSOLUTE COUNT (BEAKER) 0.05 K/ L 0.00-0.20 (test code = 417) IMMATURE GRANULOCYTES-RELATIVE 0.70 % 0.00-0.00 H PERCENT (BEAKER) (test code = 2801) [id number] 03:56:52 Test Item Value Reference Range Interpretation Comments MAGNESIUM (BEAKER) (test code = 1.5 mg/dL 1.5-3.0 627) Egg Tester ID - [id number] ID - [id number] ID - [id number] ID - [id number] BASIC METABOLIC [id number] 03:55:31 Test Item Value Reference Range Interpretation Comments SODIUM (BEAKER) 134 meq/L 135-148 L (test code = 381) POTASSIUM 4.0 meq/L 3.6-5.5 (BEAKER) (test code = 379) CHLORIDE (BEAKER) 97 meq/L 98-106 L (test code = 382) CO2 (BEAKER) 25 meq/L 20-29 (test code = 355) BLOOD UREA 18 mg/dL 10-26 NITROGEN (BEAKER) (test code = 354) CREATININE 1.29 mg/dL 0.50-1.20 H (BEAKER) (test code = 358) GLUCOSE RANDOM 100 mg/dL 70-110 (BEAKER) (test code = 652) CALCIUM (BEAKER) 8.6 mg/dL 8.5-10.5 (test code = 697) EGFR (BEAKER) 52 Interpretatio n of eGFR (test code = mL/min/1.73 values Stage De scription 1092) sq m Result G1 Norm al or high >=90 G2 Mildly decreased 60-89 G3a Mildl y to moderately 45-5 9 G3b Moderately to s everely 30-44 G4 Severl y decreased 15-29 G5 Kidney failure <15Reported eGF R is based on the CKD-EPI 2021 equation that d oes not use a race coefficientEsti mated GFR is not as accur ate as Creatinine María Elena zain in predicting glom erular filtration rate . Estimated GFR is not appl icable for dialysis patien ts Egg Tester ID - [id number] ID - [id number] ID - [id number] ID - [id number] ID - [id number] ID - [id number] ID - [id number] ID - [id number] ID - [id number] slightly [id number] 03:54:07 Test Item Value Reference Range Interpretation Comments PHOSPHORUS (BEAKER) (test code = 4.0 mg/dL 2.5-4.5 604) Egg Tester ID - [id number] 18:37:08 Test Item Value Reference Range Interpretation Comments MAGNESIUM (BEAKER) (test code = 1.6 mg/dL 1.5-3.0 627) Egg Tester ID - [id number] ID - [id number] ID - [id number] ID - [id number], CHEST, 1 VIEW, NON [id number] 16:51:00Reason for exam:->SOB, wheezingShould this be performed at the bedside?->Yes [place] : 1975 Sex: FFINAL REPORT RAD, CHEST, 1 VIEW, NON DEPT TECHNIQUE: Frontal view(s) of the chest. INDICATION: SOB, wheezing COMPARISON: None FINDINGS/IMPRESSION: Lines/Tubes: None Lungs/pleura: No consolidation. Mild perihilar prominence with mild interstitial opacities, may represent mild edema. No pleural effusion. No pneumothorax. Heart and Mediastinum: Unremarkable. Soft Tissues and Bones: Unremarkable. Signed: Robyn Fenton MDReport Verified Date/Time: 07/30/2022 16:51:52 Reading Location: [facility] Radiology Reading Room BASI METABOLIC PANEL 2022-07-30 16:02:18 Test Item Value Reference Range Interpretation Comments SODIUM (BEAKER) 136 meq/L 135-148 (test code = 381) POTASSIUM 3.6 meq/L 3.6-5.5 (BEAKER) (test code = 379) CHLORIDE (BEAKER) 96 meq/L 98-106 L (test code = 382) CO2 (BEAKER) 27 meq/L 20-29 (test code = 355) BLOOD UREA 20 mg/dL 10-26 NITROGEN (BEAKER) (test code = 354) CREATININE 1.45 mg/dL 0.50-1.20 H (BEAKER) (test code = 358) GLUCOSE RANDOM 107 mg/dL 70-110 (BEAKER) (test code = 652) CALCIUM (BEAKER) 8.8 mg/dL 8.5-10.5 (test code = 697) EGFR (BEAKER) 45 Interpretatio n of eGFR (test code = mL/min/1.73 values Stage De scription 1092) sq m Result G1 Ceci l or high >=90 G2 Mildly decreased 60-89 G3a Mildl y to moderately 45-5 9 G3b Moderately to s everely 30-44 G4 Sever ly decreased 15-29 G5 Kidney failure <15Repo rted eGFR is based on the CKD-EPI 2020 equation t hat does not use a race coefficientEsti mated GFR is not as accur ate as Creatinine María Elena pittman in predicting glom erular filtration rate . Estimated GFR is not appl icable for dialysis patien ts Egg Tester ID - [id number] ID - [id number] ID - [id number] ID - [id number] ID - [id number] ID - [id number] ID - UREEG744Ynwcpqct ID - PWGMK523Mzjrjauz ID - [id number] ID - [id number] ID - [id number] ID - [id number] TIME/INR 2022-07-30 16:00:01 Test Item Value Reference Range Interpretation Comments PROTIME (BEAKER) 12.0 seconds 9.3-12.0 Final Infor mation (test code = 759) (Auto Outp ut) INR (BEAKER) (test 1.10 <=5.90 Final Inf ormation code = 370) (Auto Output) RECOMMENDED COUMADIN/WARFARIN INR THERAPY RANGESSTANDARD DOSE: 2.0 - 3.0 Includes: PROPHYLAXIS for venous thrombosis, systemic embolization; TREATMENT for venous thrombosis and/or pulmonary embolus.HIGH RISK: Target INR is 2.5-3.5 for patients with mechanical heart valves.CBC W/PLT COUNT & AUTO [id number] 15:52:31 Test Item Value Reference Range Interpretation Comments WHITE BLOOD CELL COUNT (BEAKER) 27.9 K/ L 4.0-10.0 H (test code = 775) RED BLOOD CELL COUNT (BEAKER) 4.73 M/ L 4.00-5.00 (test code = 761) HEMOGLOBIN (BEAKER) (test code = 14.3 GM/DL 12.0-15.5 410) HEMATOCRIT (BEAKER) (test code = 43.2 % 36.0-46.0 411) MEAN CORPUSCULAR VOLUME (BEAKER) 91 fL 82-99 (test code = 753) MEAN CORPUSCULAR HEMOGLOBIN 30.2 pg 27.0-33.0 (BEAKER) (test code = 751) MEAN CORPUSCULAR HEMOGLOBIN CONC 33.1 GM/DL 32.0-36.0 (BEAKER) (test code = 752) RED CELL DISTRIBUTION WIDTH 16.8 % 12.0-15.0 H (BEAKER) (test code = 412) PLATELET COUNT (BEAKER) (test 229 K/CU MM 150-430 code = 756) MEAN PLATELET VOLUME (BEAKER) 8.9 fL 6.0-11.5 (test code = 754) NUCLEATED RED BLOOD CELLS 0 /100 WBC 0-0 (BEAKER) (test code = 413) NEUTROPHILS RELATIVE PERCENT 93 % (BEAKER) (test code = 429) LYMPHOCYTES RELATIVE PERCENT 2 % (BEAKER) (test code = 430) MONOCYTES RELATIVE PERCENT 4 % (BEAKER) (test code = 431) EOSINOPHILS RELATIVE PERCENT 0 % (BEAKER) (test code = 432) BASOPHILS RELATIVE PERCENT 0 % (BEAKER) (test code = 437) NEUTROPHILS ABSOLUTE COUNT 25.94 K/ L 1.80-8.00 H (BEAKER) (test code = 670) LYMPHOCYTES ABSOLUTE COUNT 0.51 K/ L 1.48-4.50 L (BEAKER) (test code = 414) MONOCYTES ABSOLUTE COUNT (BEAKER) 1.13 K/ L 0.00-1.30 (test code = 415) EOSINOPHILS ABSOLUTE COUNT 0.00 K/ L 0.00-0.50 (BEAKER) (test code = 416) BASOPHILS ABSOLUTE COUNT (BEAKER) 0.07 K/ L 0.00-0.20 (test code = 417) IMMATURE GRANULOCYTES-RELATIVE 0.80 % 0.00-0.00 H PERCENT (BEAKER) (test code = 2801) TISSUE [id number] 12:09:00Surgical Pathology Report Case: [id number] Authorizing Provider: Trudy James MD Collected: 02/17/2019 1126 Ordering Location: [address] Received: 02/17/2019 1147 Service Pathologist: Angela Beach MD Specimen: Gallbladder A. GALLBLADDER, CHOLECYSTECTOMY: - CHRONIC CHOLECYSTITIS WITH CHOLELITHIASIS. Signing Pathologist Direct Phone Line: [phone] signed by Angela Beach MD on 02/19/2019 at 12:09 [id number] renal mass Gallbladder Received in formalin labeled with the pa tient's name, accession number and "gallbladder" is a 5.0 x 2.4 x 2.0 cm intact gallbladder with a 1.5 cm linear staple line. A cystic duct is not grossly appreciated. The serosa is yellow-green, smooth and hyperemic. The specimen is opened to reveal approximately 2 mL of green turbid bile and a 2.5 x2.0 x 1.4 cm aggregate of green multifaceted calculi. The mucosa is paiz-green and trabeculated. The wall measures 0.2 cm thick. Die Attaching Machine Tender sections are submitted in A1-A2, with the inked proximal margin is A1. PA/ew Performed.[facility], Department of Pathology, [address] [place] [address], [facility], [facility],[address] [place] [address], [facility], Department[facility]ology, [address] [place] [address], SQS W/PLT COUNT & AUTO [id number] 07:03:00 Test Item Value Reference Range Interpretation [...] 0-1 PERCENT (BEAKER) (test code = 2801) BASIC METABOLIC [id number] 06:57:00 Test Item Value Reference Range Interpretation [...] APPLICABLE FOR DIALYSIS PATIEN TS. HEPATIC FUNCTION [id number] 06:57:00 Test Item Value Reference Range Interpretation [...] (test code = 347) hemolyzed HEPATIC FUNCTION [id number] 06:57:00 Test Item Value Reference Range Interpretation [...] 72 U/L 6-55 H 347) BASIC METABOLIC [id number] 06:57:00 Test Item Value Reference Range Interpretation [...] PATIEN TS. CBC W/PLT COUNT & AUTO [id number] 06:28:00 Test Item Value Reference Range Interpretation [...] PERCENT (BEAKER) (test code = 2801) SCREEN, [id number] 07:28:00 Test Item Value Reference Range Interpretation Comments TEST URINE (BEAKER) (test Negative code = 583) [id number] 07:28:00 Test Item Value Reference Range Interpretation Comments MAGNESIUM (BEAKER) 2.0 mg/dL 1.6-2.6 Specimen moderately (test code = 627) hemolyzed [id number] 07:28:00 Test Item Value Reference Range Interpretation Comments PHOSPHORUS (BEAKER) 4.0 mg/dL 2.3-4.7 Specimen moderately (test code = 604) hemolyzed BASIC METABOLIC [id number] 07:28:00 Test Item Value Reference Range Interpretation [...] APPLICABLE FOR DIALYSIS PATIEN TS. HEPATIC FUNCTION [id number] 07:28:00 Test Item Value Reference Range Interpretation [...] Specimen moderately (test code = 347) hemolyzed [id number] 07:28:00 Test Item Value Reference Range Interpretation Comments LIPASE (BEAKER) (test code = 749) 31 U/L 8-78 CBC W/PLT COUNT & AUTO [id number] 07:10:00 Test Item Value Reference Range Interpretation [...] (BEAKER) (test code = 2801) U/S, ABDOMINAL, [id number] 23:50:00Abdomen limited area? Add comment if clarification [...] Chay Olvera MDReport Verified Date/Time: 02/15/2019 23:50:53 URINALYSIS W/ REFLEX URINE [id number] 22:43:00 Test Item Value Reference Range Interpretation [...] SOURCE(BEAKER) (test code = 2795) HEPATIC FUNCTION [id number] 17:03:00 Test Item Value Reference Range Interpretation [...] Specimen slightly (test code = 347) hemolyzed [id number] 16:00:00 Test Item Value Reference Range Interpretation Comments MAGNESIUM (BEAKER) 2.1 mg/dL 1.6-2.6 Specimen slightly (test code = 627) hemolyzed BASIC METABOLIC [id number] 16:00:00 Test Item Value Reference Range Interpretation [...] hemolyz ed (test code = 364) PROTHROMBIN [id number] 15:31:00 Test Item Value Reference Range Interpretation [...] is 2.5-3.5 for patients wiht mechanical heart valves.[id number] 15:31:00 Test Item Value Reference Range Interpretation Comments PARTIAL THROMBOPLASTIN TIME 31.4 seconds 22.5-36.0 (BEAKER) (test code = 760) CBC W/PLT COUNT & AUTO [id number] 15:14:00 Test Item Value Reference Range Interpretation [...] 0-1 H PERCENT (BEAKER) (test code = 8255)
--- NOTE | 2022-08-05 00:12 | EDPHYS ---
Physician Documentation [facility] Name: Geetha Khan Age: 47 yrs Sex: Female : 1975 Arrival Date: 08/04/2022 Time: 23:37 Bed 7 Private MD: ED Physician Kit Hurtado HPI: 08/05 00:07 This 47 yrs old Female presents to ER via Unassigned with complaints of bs3 requesting to go home. 00:07 47-year-old female history of CAD, CKD stage III hypertension, heart failure was bs3 recently seen here and transferred to [facility] in the med center where she was being treated with intravenous antibiotics for a fluid collection when she left AMA presents after being transported from the police station she states that she was trying to get home from the police station however the an ambulance was called on her and she was brought her here she does not want treatment at this point in time from us and does not want an evaluation. . Historical: - Allergies: 08/04 23:45 FISH PRODUCT DERIVATIVES; ha1 23:45 mushrooms; ha1 - Home Meds: 23:45 albuterol sulfate 90 mcg/actuation Inhl HFAA 2 puffs every 4 hours [Active]; lisinopril ha1 20 mg Oral tab 1 tab twice daily [Active]; metoprolol tartrate 50 mg Oral tab 1 tab once daily [Active]; - PMHx: 23:45 Asthma; COPD; Hypertension; Seizures; Thyroid problem; ha1 - PSHx: 23:45 Tonsillectomy; ha1 - Immunization history:: Adult Immunizations unknown. - Social history:: Smoking status: Patient reports the use of cigarette tobacco products, smokes one pack cigarettes per day. ROS: 08/05 00:07 Constitutional: Negative for fever, chills bs3 All other systems are negative. Exam: 00:07 Constitutional: This is a well developed, well nourished patient who is awake, alert, bs3 and in no acute distress. Head/Face: Normocephalic, atraumatic. Eyes: Pupils equal round and reactive to light, extra-ocular motions intact. Lids and lashes normal. Skin: Warm, dry with normal turgor. Normal color with no rashes, no lesions, and no evidence of cellulitis. MS/ Extremity: Pulses equal, no cyanosis. Neurovascular intact. Full, normal range of motion. Neuro: Awake and alert, GCS 15, oriented to person, place, time, and situation. Cranial nerves II-XII grossly intact. Motor strength 5/5 in all extremities. Sensory grossly intact. Psych: Awake, alert, with orientation to person, place and time. Behavior, mood, and affect are within normal limits. Vital Signs: 08/04 23:45 BP 198 / 104; Pulse 101; Resp 20 S; Temp 98.3; Pulse Ox 95% ; Weight 88.45 kg; Height 5 ha1 ft. 6 in. ; 23:45 Body Mass Index 31.47 (88.45 kg, 167.64 cm) ha1 MDM: 23:51 Patient medically screened. bs3 08/05 00:07 Data reviewed: vital signs, nurses notes. ED course: I talked at length with the bs3 patient she was adamant that that she does not want an evaluation she does not know why she was brought here and she wants to go home she does corroborate the story of being at [facility] and leaving the hospital. She is currently alert and oriented x3 she understands her current situation and has decision-making capacity I reviewed her chart at [facility] where she was being treated with IV antibiotics for a possible phlegmon in the ovarian area I recommended to the patient to stay to get repeat blood work and a possible CT however she refused and wanted to be discharged home this was confirmed by an RN at bedside. Pt understood that she may still have an infection that could lead to the need for a large surgery or . . Administered Medications: No medications were administered Disposition Summary: 08/05/22 00:11 Discharge Ordered Location: Home bs3 Problem: an ongoing problem bs3 Symptoms: are unchanged bs3 Condition: Serious bs3 Diagnosis - Lower abdominal pain, unspecified bs3 Followup: bs3 - With: Private Physician - When: Tomorrow - Reason: Re-evaluation by your physician Discharge Instructions: - Discharge Summary Sheet bs3 - Abdominal Pain, Adult bs3 Forms: - Medication Reconciliation Form bs3 - Thank You Letter bs3 - Antibiotic Education bs3 - Prescription Opioid Use bs3 Signatures: Aydee Ulrich RN RN ha1 Kit Hurtado MD MD bs3 Corrections: (The following items were deleted from the chart) 00:11 00:07 ED course: I talked at length with the patient she was adamant that that she does bs3 not want an evaluation she does not know why she was brought here and she wants to go home she does corroborate the story of being at [facility] and leaving the hospital. She is currently alert and oriented x3 she understands her current situation and has decision-making capacity I reviewed her chart at [facility] where she was being treated with IV antibiotics for a possible phlegmon in the ovarian area I recommended to the patient to stay to get repeat blood work and a possible CT however she refused and wanted to be discharged home this was confirmed by an RN at bedside. bs3
--- NOTE | 2022-08-05 00:41 | ER ---
Nurse's Notes [facility] Name: Geetha Khan Age: 47 yrs Sex: Female : 1975 Arrival Date: 08/04/2022 Time: 23:37 Bed 7 Private MD: Diagnosis: Lower abdominal pain, unspecified Presentation: 08/04 23:45 Chief complaint: EMS states: 47 year old reports suprapubic pain. she says she was ha1 diagnosed with an ovarian cyst at a hospital in [place]. 23:45 Coronavirus screen: Vaccine status: Patient reports receiving the 2nd dose of the covid ha1 vaccine. Ebola Screen: No symptoms or risks identified at this time. Initial Sepsis Screen: Does the patient meet any 2 criteria? No. Patient's initial sepsis screen is negative. Does the patient have a suspected source of infection? No. Patient's initial sepsis screen is negative. Risk Assessment: Do you want to hurt yourself or someone else? Patient reports no desire to harm self or others. Onset of symptoms was August 05, 2022. 23:45 Method Of Arrival: EMS: [facility] ha1 23:45 Acuity: CORRINA 3 ha1 Triage Assessment: 23:45 General: Appears uncomfortable, Behavior is calm, cooperative. Pain: Complains of pain ha1 in right lower quadrant Pain does not radiate. Pain currently is 10 out of 10 on a pain scale. Quality of pain is described as throbbing, Pain began past two weeks. 23:45 EENT: No signs and/or symptoms were reported regarding the EENT system. Neuro: Level of ha1 Consciousness is awake, alert, obeys commands, Oriented to person, place, time, situation. Cardiovascular: Capillary refill < 3 seconds Patient's skin is warm and dry. Respiratory: Airway is patent Respiratory effort is even, unlabored, Respiratory pattern is regular, symmetrical. GI: No signs and/or symptoms were reported involving the gastrointestinal system. Abdomen is non-distended, obese. : Reports vaginal bleeding that is was diagnosed with ovarian cyst. Musculoskeletal: Circulation, motion, and sensation intact. Range of motion: intact in all extremities. Historical: - Allergies: 23:45 FISH PRODUCT DERIVATIVES; ha1 23:45 mushrooms; ha1 - Home Meds: 23:45 albuterol sulfate 90 mcg/actuation Inhl HFAA 2 puffs every 4 hours [Active]; lisinopril ha1 20 mg Oral tab 1 tab twice daily [Active]; metoprolol tartrate 50 mg Oral tab 1 tab once daily [Active]; - PMHx: 23:45 Asthma; COPD; Hypertension; Seizures; Thyroid problem; ha1 - PSHx: 23:45 Tonsillectomy; ha1 - Immunization history:: Adult Immunizations unknown. - Social history:: Smoking status: Patient reports the use of cigarette tobacco products, smokes one pack cigarettes per day. Screenin:45 Abuse screen: Denies threats or abuse. Denies injuries from another. ha1 23:45 [facility] ED Fall Risk Assessment (Adult) History of falling in the last 3 months, ha1 including since admission No falls in past 3 months (0 pts) Confusion or Disorientation No (0 pts) Intoxicated or Sedated No (0 pts) Impaired Gait No (0 pts) Mobility Assist Device Used No (0 pt) Altered Elimination No (0 pt) Score/Fall Risk Level 0 - 2 = Low Risk Oriented to surroundings, Maintained a safe environment, Educated pt \\T\\ family on fall prevention, incl call for assistance when getting out of bed, Hourly rounding (assess needs \\T\\ fall precautionary measures) done. Nutritional screening: No deficits noted. Tuberculosis screening: No symptoms or risk factors identified. Assessment: 08/05 00:08 General: Appears in no apparent distress. comfortable, pt states that she was going to 3 the police station to just borrow a phone because she was trying to go home. Pt does not understand why the police station called me an ambulance. I do not want to be seen here. I want to go home. There is nothing wrong. . 00:10 Reassessment: pat. states " I do not want to stay, I just want to go". It was explained ha1 the need fro treatment. requesting to be discharged. Vital Signs: 08/04 23:45 BP 198 / 104; Pulse 101; Resp 20 S; Temp 98.3; Pulse Ox 95% ; Weight 88.45 kg; Height 5 ha1 ft. 6 in. ; 23:45 Body Mass Index 31.47 (88.45 kg, 167.64 cm) ha1 ED Course: 23:45 Patient arrived in ED. sb4 23:45 Patient has correct armband on for positive identification. Placed in gown. Bed in low ha1 position. Call light in reach. Side rails up X 1. 23:45 Arm band placed on right wrist. ha1 23:51 Kit Hurtado MD is Attending Physician. bs3 08/05 00:17 Triage completed. ha1 00:24 No provider procedures requiring assistance completed. Patient did not have IV access ha1 during this emergency room visit. Administered Medications: No medications were administered Medication: 00:27 VIS not applicable for this client. ha1 Outcome: 00:11 Discharge ordered by . bs3 00:26 Discharged to home ambulatory. ha1 00:26 Condition: stable 00:26 Condition: stable 00:26 Discharge instructions given to patient, Instructed on discharge instructions, follow up and referral plans. Demonstrated understanding of instructions, follow-up care. 00:40 Patient left the ED. ll3 Signatures: Von Galicia RN RN 3 Lisbet Dan RN RN 3 Aydee Ulrich RN RN 1 Kit Hurtado MD MD bs3 Kalli Bradshaw, PA-C PA-C sb4
[2022-08-05 00:52] VITALS: BP 198/104; TEMP 98.3; O2SAT 95
== END 2022-08-05 00:40 | disposition home or self-care (01) ==
LOC: ER 23:37
DX: R10.30 Lower abdominal pain, unspecified (principal)

== ENCOUNTER 2022-08-05 10:18 | Emergency (ER) | payer SELFPAY ==
--- OUTSIDE RECORDS SUMMARY | 2022-08-05 10:22 | XMS REPORT | Continuity of Care Document ---
:1975 Author Organization [facility] t Address [address] [facility] [address] [place] [address] Care Team Providers Name Role Phone No, Pcp [facility] Primary Care Physician Unavailable CLIFTON DE LUNA [...] Disease Active 2018-[address] [facility] [address] cholecysti cholecysti -03 Iqra kes tis tis 00:00: Medical 00 Center Calculus Calculus Disease Active 2018-03 [facility] gallbladde gallbladde 00:00: Me dical r without r without 00 Cent er cholecysti cholecysti tis tis without without obstructio obstructio n n Transamini Transamini Disease Active 2018-[address] [facility] - [facility] Hypertensi Hypertensi Disease Recurre 2018-[address] [facility] [facility] on nce 04[facility]19 [facility] Seizure Seizure Disease Recurre 2018-[address] disorder disorder nce 04[facility]19 [facility] Anemia Anemia Disease Active 2018-[address] [facility] [facility] Thrombocyt Thrombocyt Disease Active 2018-[address] osis osis 04-19 [facility] Allergies, Adverse Reactions, Alerts Allergy Allergy Status Severity Reaction(s) Onset Inactive Treating Comm ents Source Name Type Date Date Clinician ASPIRIN Allergy Active High Anaphylaxis SLE H 15 00:00: 00 MUSHROOM Allergy Active High Anaphylaxis 0 SL EH 5-15 00:00: 00 SHELLFIS Allergy Active High Anaphylaxis 0 [facility] H 15 CONTAINI 00:00: NG 00 PRODUCTS FISH Allergy Active High Swelling 2018-03 SLSL CONTAINI 04-18 NG 00:00: PRODUCTS 00 [place] Drug Active Itching 2018-[address] [facility] [facility] All[facility] 04[facility]18 [facility] Fish Drug Active Swelling 2018-[address] [facility] Containi Allergy 04-18 [facility] ng 00:00: Medical Products 00 Center CRANBERR Allergy Active High Anaphylaxis 2018-03 [facility] Y 04-18 00:00: 00 Social History Social Habit Start Date Stop Date Quantity Comments Source History of tobacco 1992-02-[address] [facility] Alcohol Std Drinks [facility] Alcohol Comment Medical C enter Alcohol intake 2019-02-17 2019-02-[address] [facility] 00:00:00 00:00:00 non-drinker of Medical Ce nter alcohol (finding) History [facility] 2019-02-15 2019-02-[address] [facility] Alcohol [...] Source Occasional tobacco smoker 2019-02-15 00:00:00 I [facility] Medications Ordered Filled Start Stop Current Ordering Indication Dosage Frequency Signature Comments Components Source Medication Medication Date Date Medication? Clinician (SIG) Name Name divshanproex 2018-03 Yes epilepsy 125mg QD Take 125 [...] EC 10:36: mouth Medical tablet 04 daily. [place] famotidine 2018-03 Yes 1{tbl} Take 1 [facility] Test 00:00:00 [code = 34177823] Medical Ce nter Future Scheduled 2021-03-18 DEPRESSION [...] cervix Medical C enter (procedure) [code = 202176371] Future Scheduled 1995 DTAP/TDAP/TD VACCINES [facility] I [...] [facility] Test 00:00:00 [code = CT Colonography [facility] (combo)] Future Scheduled 1975 Screening for malignant [facility] Test 00:00:00 neoplasm of colon Medical Ce nter (procedure) [code = 697028887] Future Scheduled 1976 Screening for malignant [facility] Test 00:00:00 neoplasm of colon Medical Ce nter (procedure) [code = 754262939] Future Scheduled 1975 Screening for malignant [facility] Test 00:00:00 neoplasm of colon Medical Ce nter (procedure) [code = 302586466] Future Scheduled 1975 Screening for malignant [facility] Test 00:00:00 neoplasm of colon Medical Ce nter (procedure) [code = 409968772] Future Scheduled 1975 Sigmoidoscopy [code = [facility] Test 00:[facility]:00 S[facility]oidoscopy] Medical Cente r Encounters Start End Encounter Admission Attending Care Care Encounter Source Date/Time Date/Time Type Type Clinicians Facility Department ID 2022-07-31 2022-08-03 [facility] [id number] [facility] 04:37:00 20:00:00 CLIFTON 2022-07-30 2022-07-31 [facility] [id number] [facility] 14:07:00 04:04:00 [place] Results Test Description Test [...] s not applicable for dialysis mable davis Dredge Hand ID - MMSpecimen slightly ictericCBC (HEMOGRAM ONLY)2022-08-03 [...] CONCENTRATION Decreased (CELLAVISION)(BEAKER) (test code = 3438) Dredge Hand ID - Salena comments: Slide comments:CBC W/PLT COUNT & AUTO [id number] 14:52:12 Test Item Value Reference Range Interpretation [...] (BEAKER) (test code = 413) BASIC METABOLIC [id number] 13:40:34 Test Item Value Reference Range Interpretation [...] not appl icable for dialysis patien ts Dredge Hand ID - ADMINSpecimen moderately ictericMYOCARD IMAGING, MULTI, PHARM, [id number] 15:12:00Unlisted Reason for Exam - Click Yes and Enter Reason Below->NoL[facility]: [facility] : 1975 Sex: FFINAL REPORT PROCEDURE: MYOCARDIAL PERFUSION SPECT IMAGING (Rest/Stress)CPT CODE: 12891 INDICATION: Cardiac screening, high CAD risk CARDIOVASCULAR [...] prior study for comparison. Signed: Marilyn Cerna [facility] Verified Date/Time: 08/01/2022 15:12:23 HEMOGLOBIN [...] 5.7- 6.4% indicates increased risk for diabetes (prediabetes)."Dredge Hand ID - ADM (CELLAVISION MANUAL DIFF)2022-08-01 08:26:35 [...] CONCENTRATION Decreased (CELLAVISION)(BEAKER) (test code = 3438) Dredge Hand ID - Remy Carrerao-onUser comments: Slide comments:CBC W/PLT COUNT & AUTO [id number] 08:26:34 Test Item Value Reference Range Interpretation [...] (BEAKER) (test code = 413) HCG, QUANTITATIVE, [id number] 05:48:18 Test Item Value Reference Range Interpretation Comments GONADOTROPIN, CHORIONIC (HCG) QUANT < mIU/mL 0-10 (BEAKER) (test code = 649) Non- Females: <10 mIU/mL Females: Gestation Age Reference Range(mIU/mL) 0.2-1 Week 5-50 1-2 Weeks 50-500 2-3 Weeks 100-5,000 3-4 Weeks 500-10,000 4-5 Weeks 1,000-50,000 5-6 Weeks 10,000-100,000 6-8 Weeks 15,000- 200,000 2-3 Months 10,000-100,000 Dredge Hand ID - DBBASIC METABOLIC PANEL 2022-08-01 05:41:39 [...] not appl icable for dialysis patien ts Dredge Hand ID Gisele STEEL WSpecimen moderately [id number] 05:41:38 Test Item Value Reference Range Interpretation Comments MAGNESIUM (BEAKER) (test code = 1.7 mg/dL 1.6-2.6 627) Dredge Hand [employer] [id number] 05:41:38 Test Item Value Reference Range Interpretation Comments PHOSPHORUS (BEAKER) (test code = 3.0 mg/dL 2.3-4.7 604) Dredge Hand [employer] WPT/[id number] 05:39:59 Test Item Value Reference Range Interpretation [...] 2.5-3.5 for patients with mechanical heart valves.LIPID [id number] 22:24:08 Test Item Value Reference Range Interpretation Comments TRIGLYCERIDES (BEAKER) (test code = 51 mg/dL 540) CHOLESTEROL (BEAKER) (test code = 102 mg/dL 631) HDL CHOLESTEROL (BEAKER) (test code 45 mg/dL = 976) LDL CHOLESTEROL CALCULATED (WESLEY) 47 mg/dL (test code = 633) Triglyceride Reference Range: Low Risk <150 Borderline 150-199 High Risk 200-499 Very High Risk >=500Cholesterol Reference Range: Low Risk <200 Borderline 200-239 High Risk >240HDL Cholesterol Reference Range: Low Risk >=60 High Risk <40LDL Cholesterol Reference Range: Optimal <100 Near Optimal 100-129 Borderline 130-159 High 160-189 Very High >=190 Dredge Hand ID - [id number] ID - [id number] ID - [id number] slightly icteric U/S, ENDOVAGINAL (EV)2022-07-31 14:38:00Reason for exam:->concern for [facility] Irineo : 1975 Sex: FFINAL [...] Mendoza MDReport Verified Date/Time: 07/31/2022 14:38:44 U/S, [id number] 14:38:00Reason for exam:->concern for [facility] L : 1975 Sex: FFINAL [...] MDReport Verified Date/Time: 07/31/2022 14:38:44 U/S, DUPLEX, [id number] 14:38:00 [facility] Irineo : 1975 Sex: FFINAL REPORT TECHNIQUE: [...] 07/31/2022 14:38:44 CBC W/PLT COUNT & AUTO [id number] 03:57:39 Test Item Value Reference Range Interpretation [...] H PERCENT (BEAKER) (test code = 2801) [id number] 03:56:52 Test Item Value Reference Range Interpretation Comments MAGNESIUM (BEAKER) (test code = 1.5 mg/dL 1.5-3.0 627) Dredge Hand ID - [id number] ID - [id number] ID - EEKV30Hfeqnseh ID - [id number] BASIC METABOLIC [id number] 03:55:31 Test Item Value Reference Range Interpretation [...] not appl icable for dialysis patien ts Dredge Hand ID - HEKL07Makoibod ID - UPSA01Cpyptzxi ID - RBCR39Pyojrblu ID - HWWC29Casckfja ID - KHBG94Pddjaxbw ID - [id number] ID - PDDS50Xrxdisww ID - TMQM54Sbamzhxy ID - TVKK89Tnmapttv slightly [id number] 03:54:07 Test Item Value Reference Range Interpretation Comments PHOSPHORUS (BEAKER) (test code = 4.0 mg/dL 2.5-4.5 604) Dredge Hand ID - [id number] 18:37:08 Test Item Value Reference Range Interpretation Comments MAGNESIUM (BEAKER) (test code = 1.6 mg/dL 1.5-3.0 627) Dredge Hand ID - [id number] ID - [id number] ID - [id number] ID - [id number], CHEST, 1 VIEW, NON [id number] 16:51:00Reason for exam:->SOB, wheezingShould this be performed at the bedside?->Yes [facility] : 1975 Sex: [...] MDReport Verified Date/Time: 07/30/2022 16:51:52 Reading Location: [facility] Radiology Reading Room BASI METABOLIC PANEL 2022-07-30 [...] not appl icable for dialysis patien ts Dredge Hand ID - [id number] ID - [id number] ID - [id number] ID - IARXM182Zdzzzdmz ID - [id number] ID - [id number] ID - [id number] ID - [id number] ID - [id number] ID - GOVZS526Gndbbeiy ID - [id number] ID - [id number] TIME/INR 2022-07-30 16:00:01 Test Item Value Reference [...] mechanical heart valves.CBC W/PLT COUNT & AUTO [id number] 15:52:31 Test Item Value Reference Range Interpretation [...] PERCENT (BEAKER) (test code = 2801) TISSUE [id number] 12:09:00Surgical Pathology Report Case: [id number] Authorizing Provider: Trudy James MD Collected: 02/17/2019 1126 Ordering Location: [address] Received: 02/17/2019 1147 Service Pathologist: Angela Beach MD Specimen: Gallbladder A. GALLBLADDER, CHOLECYSTECTOMY: - CHRONIC CHOLECYSTITIS WITH CHOLELITHIASIS. Signing Pathologist Direct Phone Line: [phone] signed by Angela Beach MD on 02/19/2019 at 12:09 [id number] renal mass Gallbladder Received in formalin labeled with the pat ient's name, accession number and "gallbladder" is a 5.0 x 2.4 x 2.0 cm intact gallbladder with a 1.5 cm linear staple line. A cystic duct is not grossly appreciated. The serosa is yellow-green, smoothand hyperemic. The specimen is opened to reveal approximately 2 mL of green turbid bile and a 2.5 x 2.0 x 1.4 cm aggregate of green multifaceted calculi. The mucosa is paiz-green and trabeculated. The wall measures 0.2 cm thick. Proof Clerk sections are submitted in A1-A2, with the inked proximal margin is A1. PA/ew Performed.[facility], Department of Pathology, [address] [place] [address], [facility], Department of Pathology, [address] [place] [address], [facility], Department of Pathology, [address] [place] [address], HCF W/PLT COUNT & AUTO [id number] 07:03:00 Test Item Value Reference Range Interpretation [...] (BEAKER) (test code = 2801) BASIC METABOLIC [id number] 06:57:00 Test Item Value Reference Range Interpretation [...] APPLICABLE FOR DIALYSIS PATIEN TS. HEPATIC FUNCTION [id number] 06:57:00 Test Item Value Reference Range Interpretation [...] (test code = 347) hemolyzed HEPATIC FUNCTION [id number] 06:57:00 Test Item Value Reference Range Interpretation [...] 72 U/L 6-55 H 347) BASIC METABOLIC [id number] 06:57:00 Test Item Value Reference Range Interpretation [...] PATIEN TS. CBC W/PLT COUNT & AUTO [id number] 06:28:00 Test Item Value Reference Range Interpretation [...] PERCENT (BEAKER) (test code = 2801) SCREEN, [id number] 07:28:00 Test Item Value Reference Range Interpretation Comments TEST URINE (BEAKER) (test Negative code = 583) [id number] 07:28:00 Test Item Value Reference Range Interpretation Comments MAGNESIUM (BEAKER) 2.0 mg/dL 1.6-2.6 Specimen moderately (test code = 627) hemolyzed [id number] 07:28:00 Test Item Value Reference Range Interpretation Comments PHOSPHORUS (BEAKER) 4.0 mg/dL 2.3-4.7 Specimen moderately (test code = 604) hemolyzed BASIC METABOLIC [id number] 07:28:00 Test Item Value Reference Range Interpretation [...] APPLICABLE FOR DIALYSIS PATIEN TS. HEPATIC FUNCTION [id number] 07:28:00 Test Item Value Reference Range Interpretation [...] Specimen moderately (test code = 347) hemolyzed [id number] 07:28:00 Test Item Value Reference Range Interpretation Comments LIPASE (BEAKER) (test code = 749) 31 U/L 8-78 CBC W/PLT COUNT & AUTO [id number] 07:10:00 Test Item Value Reference Range Interpretation [...] (BEAKER) (test code = 2801) U/S, ABDOMINAL, [id number] 23:50:00Abdomen limited area? Add comment if clarification [...] Date/Time: 02/15/2019 23:50:53 URINALYSIS W/ REFLEX URINE [id number] 22:43:00 Test Item Value Reference Range Interpretation [...] SOURCE(BEAKER) (test code = 2795) HEPATIC FUNCTION [id number] 17:03:00 Test Item Value Reference Range Interpretation [...] Specimen slightly (test code = 347) hemolyzed [id number] 16:00:00 Test Item Value Reference Range Interpretation Comments MAGNESIUM (BEAKER) 2.1 mg/dL 1.6-2.6 Specimen slightly (test code = 627) hemolyzed BASIC METABOLIC [id number] 16:00:00 Test Item Value Reference Range Interpretation [...] hemolyz ed (test code = 364) PROTHROMBIN [id number] 15:31:00 Test Item Value Reference Range Interpretation [...] is 2.5-3.5 for patients wiht mechanical heart valves.[id number] 15:31:00 Test Item Value Reference Range Interpretation Comments PARTIAL THROMBOPLASTIN TIME 31.4 seconds 22.5-36.0 (BEAKER) (test code = 760) CBC W/PLT COUNT & AUTO [id number] 15:14:00 Test Item Value Reference Range Interpretation [...] 0-1 H PERCENT (BEAKER) (test code = 4308)
[2022-08-05] MEDS ORDERED: LEVALBUTEROL 1.25 MG/3 ML NEB ONE (10:46)
[2022-08-05 11:19] LABS: Absolute Lymphocytes (CBC) 1.1 K/uL (0.7-4.9); Lymphocytes % 3.8 % (15.3-44.8); MCV 88.7 fL (80-100); MPV 6.5 fL (7.6-11.3); RBC Red Blood Cell Count 4.17 M/uL (3.86-4.86)
[2022-08-05 11:37] LABS: Albumin 2.8 g/dL (3.4-5.0); Bilirubin Total 4.4 mg/dL (0.2-1.0); Potassium 3.3 mEq/L (3.5-5.1); Protein, Total 7.1 g/dL (6.4-8.2)
[2022-08-05 12:08] LABS: Protime INR 1.39
--- NOTE | 2022-08-05 12:27 | RAD REPORT ---
EXAM DESCRIPTION: CT - Chest For Pe Angio - 08/05/2022 12:04 pm CLINICAL HISTORY: Chest pain. SOB COMPARISON: Chest For Pe Angio dated 01/07/2021; Abdomen Pelvis W Contrast dated 08/05/2022; Abdome n Pelvis W Contrast dated 07/30/2022 TECHNIQUE: CT angiogram of the pulmonary arteries was performed with MIP. All CT scans are performed using dose optimization technique as appropriate and may include automated exposure control or mA/KV adjustment according to patient size. FINDINGS: No evidence of pulmonary thromboembolism. No acute aortic finding demonstrated. Bilateral ground-glass lung opacities are present. Enlarged lymph nodes are seen in the AP window, sub- carinal region and both hilar regions compatible with mild lymphadenopathy. Trace right pleural effusion. No concerning bony finding. IMPRESSION: No evidence of pulmonary thromboembolism. Ground-glass lung opacities bilateral be with trace right pleural effusion could indicate interstitia l edema or infection. Soft tissue and mediastinal fullness/adenopathy present. This may be chronic in nature and appears si milar to 2020 comparative study.
[2022-08-05 12:28] LABS: Platelet Estimate ADEQ
[2022-08-05 12:29] LABS: Blood Morphology Comment NOT SEEN (NOT SEEN)
--- NOTE | 2022-08-05 12:32 | RAD REPORT ---
EXAM DESCRIPTION: CTAbdomen Pelvis W Contrast - 08/05/2022 12:05 pm CLINICAL HISTORY: Abdominal pain. abdominal pain COMPARISON: <Comparisons> TECHNIQUE: Biphasic CT imaging of the abdomen and pelvis was performed with 100 ml non-ionic IV cont rast. All CT scans are performed using dose optimization technique as appropriate and may include automated exposure control or mA/KV adjustment according to patient size. FINDINGS: Trace right pleural fluid with ground-glass opacities in both lung bases. Small hiatal her evelyn. Liver size is prominent with diffuse fatty liver. Trace free fluid is seen along the right liver edge . Cholecystectomy clips. The spleen is mildly prominent in size. The pancreas adrenal glands kidneys show no acute process. There is atrophy of the right kidney noted relative to the left. Again noted is an enlarged left ovary measuring 7.0 x 4.9 cm with cystic components. Inflammatory juan diego nges are present surrounding in the left lower quadrant. Overall this has mildly progressed since study. No bowel obstruction is seen. Normal ovary. No free fluid collections. No intra-abdom inal or pelvic adenopathy. No suspicious bony findings. IMPRESSION: Enlarged solid and cystic left adnexal lesion measuring 7 x 5 cm. This has enlarged in s ize since comparative study. This probably represents a significantly enlarged left ovary. While infe ction/tubo-ovarian abscess is certainly a possibility, a left ovarian torsion (which may be intermitt ent) is diagnosis of concern. Recommend correlation with pelvic exam findings.
[2022-08-05] MEDS ORDERED: PIPERACIL/TAZO 3.375 GM VIAL IV ONE (13:19)
[2022-08-05] MEDS ORDERED: VANCOMYCIN 1 GM/VIAL ONE (13:19)
[2022-08-05] MEDS ORDERED: NA CHLORIDE 0.9% 250 ML ONE (13:19)
[2022-08-05] MEDS ORDERED: NA CHLORIDE 0.9% 100 ML ONE (13:19)
--- NOTE | 2022-08-05 13:52 | RAD REPORT ---
EXAM DESCRIPTION: US - Transvaginal Study Probe - 08/05/2022 1:41 pm CLINICAL HISTORY: pelvic pain, rule out torsion Pelvic pain. COMPARISON: No comparisons FINDINGS: The patient refused majority of the study. Adequate imaging could not be obtained.
[2022-08-05 14:45] LABS: SARS-CoV-2 Antigen Rapid Res Negative (Negative)
--- NOTE | 2022-08-05 15:32 | EDPHYS ---
Physician Documentation [facility] Name: Geetha Khan Age: 47 yrs Sex: Female : 1975 Arrival Date: 08/05/2022 Time: 10:18 Bed 6 Private MD: ED Physician Kye De Anda HPI: 08/05 10:33 This 47 yrs old Female presents to ER via Wheelchair with complaints of Cyst. jmm 10:33 The patient presents with pelvic pain. Onset: The symptoms/episode began/occurred jmm gradually, 2 week(s) ago. Modifying factors: The symptoms are alleviated by nothing, the symptoms are aggravated by nothing. Is a 47-year-old female with history of asthma, COPD, hypertension, epilepsy, for thyroidism that presents emerged part with complaints of pelvic pain beginning approximately 2 weeks ago. Patient was transferred on the 15 of this month for tubo-ovarian abscess. Patient now complains of pain along with increased shortness of breath.. Historical: - Allergies: 10:27 FISH PRODUCT DERIVATIVES; ll1 10:27 mushrooms; ll1 - PMHx: 10:27 Asthma; COPD; Hypertension; Seizures; Thyroid problem; ll1 - PSHx: 10:27 Tonsillectomy; ll1 - Immunization history:: Client reports receiving the 2nd dose of the Covid vaccine. - Social history:: Smoking status: Patient reports the use of cigarette tobacco products, smokes one-half pack cigarettes per day. ROS: 10:33 Constitutional: Negative for fever, chills, and weight loss, Cardiovascular: Negative jmm for chest pain, palpitations, and edema. 10:33 Respiratory: Positive for shortness of breath. 10:33 Abdomen/GI: Positive for abdominal pain. 10:33 All other systems are negative. Exam: 10:33 Head/Face: atraumatic. Eyes: EOMI, no conjunctival erythema appreciated ENT: Moist jmm Mucus Membranes Neck: Trachea midline, Supple Chest/axilla: Normal chest wall appearance and motion. Cardiovascular: Regular rate and rhythm. No edema appreciated Respiratory: Normal respirations, no respiratory distress appreciated 10:33 Back: Normal ROM Skin: General appearance color normal MS/ Extremity: Moves all extremities, no obvious deformities appreciated, no edema noted to the lower extremities Neuro: Awake and alert Psych: Behavior is normal, Mood is normal, Patient is cooperative and pleasant 10:33 Constitutional: The patient appears in no acute distress, alert, awake. 10:33 Abdomen/GI: Inspection: abdomen appears normal, Bowel sounds: normal, Palpation: soft, mild abdominal tenderness, in the suprapubic area and left lower quadrant. Vital Signs: 10:27 BP 161 / 104; Pulse 101; Resp 18; Temp 97.9(O); Pulse Ox 95% on R/A; Weight 58.97 kg; hb Height 5 ft. 3 in. ; Pain 9/10; 10:32 BP 170 / 98; Pulse 94; Resp 24; Pulse Ox 100% on Nebulizer Mask; hb 11:45 BP 168 / 98; Pulse 97; Resp 19; Pulse Ox 99% on R/A; hb 12:50 BP 176 / 101; Pulse 92; Resp 18; Pulse Ox 93% on R/A; hb 14:10 BP 149 / 84; Pulse 94; Resp 17; Pulse Ox 92% on R/A; hb 15:05 BP 135 / 91; Pulse 96; Resp 19; Pulse Ox 99% on R/A; hb 16:27 BP 156 / 89; Pulse 96; Resp 17; Pulse Ox 97% on R/A; hb 10:27 Body Mass Index 23.03 (58.97 kg, 160.02 cm) hb 10:27 Pain Scale: Adult hb MDM: 10:33 Patient medically screened. [facility] 15:29 Differential diagnosis: uterine fibroids, PID, tubo-ovarian abscess, ovarian cyst. Data [facility] reviewed: vital signs, nurses notes, lab test result(s), radiologic studies, CT scan. Consideration of Admission/Observation Escalation of care including admission/observation considered. Management of patient was discussed with the following: Underliner: Dr. Rubio. I considered the following discharge prescriptions or medication management in the emergency department Medications were administered in the Emergency Department. See MAR. Counseling: I had a detailed discussion with the patient and/or guardian regarding: the historical points, exam findings, and any diagnostic results supporting the discharge/admit diagnosis, lab results, radiology results, the need to transfer to another facility, [facility] does not immediately have the required specialist. 08/05 10:37 Order name: CBC with Diff; Complete Time: 12:32 [facility] 08/05 10:37 Order name: CMP; Complete Time: 11:42 [facility] 08/05 10:37 Order name: Lipase; Complete Time: 11:42 [facility] 08/05 10:38 Order name: Troponin High Sensitivity; Complete Time: 11:42 [facility] 08/05 11:28 Order name: Blood Culture Adult (2) [facility] 08/05 11:28 Order name: Lactate w/ 2H reflex if indic.; Complete Time: 12:32 [facility] 08/05 11:28 Order name: PT-INR; Complete Time: 12:10 [facility] 08/05 12:29 Order name: Manual Differential; Complete Time: 12:32 [facility] 08/05 14:24 Order name: SARS RAPID; Complete Time: 14:52 [facility] 08/05 10:37 Order name: CT Chest For PE Angio; Complete Time: 12:32 [facility] 08/05 10:37 Order name: CT Abd/Pelvis - IV Contrast Only; Complete Time: 12:33 [facility] 08/05 12:34 Order name: US Transvaginal Study (Probe); Complete Time: 13:53 [facility] 08/05 10:37 Order name: IV Saline Lock; Complete Time: 11:08 [facility] 08/05 10:37 Order name: Labs collected and sent; Complete Time: 11:08 [facility] Administered Medications: 11:08 Drug: Levalbuterol Inhalation 1.25 mg Route: Inhalation; hb 11:50 Follow up: Response: No adverse reaction hb 13:35 Drug: Piperacillin-Tazobactam IVPB 3.375 grams Route: IVPB; Infused Over: 60 mins; hb Site: right antecubital; 14:33 Follow up: Response: No adverse reaction; IV Status: Completed infusion; IV Intake: hb 100ml 14:33 Drug: vancoMYCIN IVPB 1 grams Route: IVPB; Infused Over: 2 hrs; Site: right antecubital;hb Disposition Summary: 08/05/22 15:31 Transfer Ordered Transfer Location: [facility] Reason: Higher level of care jmm Condition: Stable jmm Problem: an acute exacerbation jmm Symptoms: have improved jmm Accepting Physician: Dr. Vega Mcneal(08/05/22 17:14) hb Diagnosis - Pelvic and perineal pain jmm - Enlarged Ovary jmm - Pneumonia jmm Forms: - Medication Reconciliation Form jmm - SBAR form jmm Signatures: Dispatcher [employer] EDMS Ranjan Ovalles PA PA Kristin Morataya, YANETH RN Sharona Faith Lynsay RN RN ll1 Corrections: (The following items were deleted from the chart) 14:34 14:24 SARS-COV-2 RT PCR+MOL.LAB.CARMENZ ordered. [facility] 15:55 15:31 Internal Medicine [facility] 17:14 15:55 Dr. Vega Mcneal [facility]
--- NOTE | 2022-08-05 15:32 | ER ---
Nurse's Notes [facility] Name: Geetha Khan Age: 47 yrs Sex: Female : 1975 Arrival Date: 08/05/2022 Time: 10:18 Bed 6 Private MD: Diagnosis: Pelvic and perineal pain;Enlarged Ovary;Pneumonia Presentation: 08/05 10:27 Chief complaint: Patient states: Still has severe ovarian cyst pain for over 2 weeks. ll1 Hospitalized recently for the same. Cannot lay flat or sleep well. Coronavirus screen: Vaccine status: Patient reports receiving the 2nd dose of the covid vaccine. Client denies travel out of the [place] in the last 14 days. At this time, the client does not indicate any symptoms associated with coronavirus-19. Ebola Screen: Patient denies travel to an Ebola-affected area in the 21 days before illness onset. Initial Sepsis Screen: Does the patient meet any 2 criteria? No. Patient's initial sepsis screen is negative. Does the patient have a suspected source of infection? Yes: Acute abdominal pain. Risk Assessment: Do you want to hurt yourself or someone else? Patient reports no desire to harm self or others. Onset of symptoms was July 20, 2022. 10:27 Method Of Arrival: Wheelchair ll1 10:27 Acuity: CORRINA 3 ll1 Triage Assessment: 10:29 General: Appears uncomfortable, Behavior is calm, cooperative, appropriate for age. ll1 Pain: Complains of pain in pelvis Pain currently is 9 out of 10 on a pain scale. Quality of pain is described as aching. Neuro: No deficits noted. Cardiovascular: No deficits noted. GI: Reports lower abdominal pain. Historical: - Allergies: 10:27 FISH PRODUCT DERIVATIVES; ll1 10:27 mushrooms; ll1 - PMHx: 10:27 Asthma; COPD; Hypertension; Seizures; Thyroid problem; ll1 - PSHx: 10:27 Tonsillectomy; ll1 - Immunization history:: Client reports receiving the 2nd dose of the Covid vaccine. - Social history:: Smoking status: Patient reports the use of cigarette tobacco products, smokes one-half pack cigarettes per day. Screenin:28 [facility] ED Fall Risk Assessment (Adult) Score/Fall Risk Level 0 - 2 = Low Risk hb Oriented to surroundings, Maintained a safe environment. Abuse screen: Denies threats or abuse. Denies injuries from another. Nutritional screening: No deficits noted. Tuberculosis screening: No symptoms or risk factors identified. Assessment: 10:32 General: See triage assessment. hb 11:45 Reassessment: Patient appears in no apparent distress at this time. Patient and/or hb family updated on plan of care and expected duration. Pain level reassessed. 12:36 Reassessment: Patient appears in no apparent distress at this time. Patient and/or hb family updated on plan of care and expected duration. Pain level reassessed. 13:37 Reassessment: No changes from previously documented assessment. Patient and/or family ll1 updated on plan of care and expected duration. Pain level reassessed. 15:06 Reassessment: Patient appears in no apparent distress at this time. Patient and/or hb family updated on plan of care and expected duration. Pain level reassessed. Patient is alert, oriented x 3, equal unlabored respirations, skin warm/dry/pink. 16:00 Reassessment: Patient appears in no apparent distress at this time. Patient and/or hb family updated on plan of care and expected duration. Pain level reassessed. Patient is alert, oriented x 3, equal unlabored respirations, skin warm/dry/pink. 16:02 Reassessment: Report called to Manuel WOLFE at [facility]. hb Vital Signs: 10:27 BP 161 / 104; Pulse 101; Resp 18; Temp 97.9(O); Pulse Ox 95% on R/A; Weight 58.97 kg; hb Height 5 ft. 3 in. ; Pain 9/10; 10:32 BP 170 / 98; Pulse 94; Resp 24; Pulse Ox 100% on Nebulizer Mask; hb 11:45 BP 168 / 98; Pulse 97; Resp 19; Pulse Ox 99% on R/A; hb 12:50 BP 176 / 101; Pulse 92; Resp 18; Pulse Ox 93% on R/A; hb 14:10 BP 149 / 84; Pulse 94; Resp 17; Pulse Ox 92% on R/A; hb 15:05 BP 135 / 91; Pulse 96; Resp 19; Pulse Ox 99% on R/A; hb 16:27 BP 156 / 89; Pulse 96; Resp 17; Pulse Ox 97% on R/A; hb 10:27 Body Mass Index 23.03 (58.97 kg, 160.02 cm) hb 10:27 Pain Scale: Adult hb ED Course: 10:19 Patient arrived in ED. ts1 10:23 Ranjan Ovalles PA is PHCP. jmm 10:23 Kye De Anda MD is Attending Physician. jmm 10:26 Ruth East, YANETH is Primary Nurse. ll1 10:26 Arm band placed on Patient placed in an exam room, on a stretcher. ll1 10:28 Patient has correct armband on for positive identification. hb 10:29 Triage completed. ll1 10:36 Kristin Barrera, YANETH is Primary Nurse. hb 11:06 Inserted saline lock: 22 gauge in right antecubital area, using aseptic technique. hb Blood collected. 11:08 CBC with Diff Sent. hb 11:08 CMP Sent. hb 11:08 Lipase Sent. hb 11:08 Troponin High Sensitivity Sent. hb 12:06 CT Chest For PE Angio In Process Unspecified. EDMS 12:07 CT Abd/Pelvis - IV Contrast Only In Process Unspecified. EDMS 13:43 US Transvaginal Study (Probe) In Process Unspecified. EDMS 14:20 initiated a transfer with Sharona Davila from the [facility]. eb 14:33 SARS RAPID Sent. hb 14:58 connected the [employer] trust evaluation supervisor for [facility] with Ranjan Hollingsworth for patient transfer eb consultation. 15:15 connected the hospitalist trust evaluation supervisor for [facility] with Ranjan Hollingsworth for patient transfer eb consultation. 15:45 administrative approval given by Sharona Davila Rn/ patient has been accepted to [facility] 16 tower bed 1622/ Dr. Vega Mcneal has accepted the patient in transfer/ report to be called to the transfer center at [phone]. 16:28 No provider procedures requiring assistance completed. Patient transferred, IV remains hb in place. Administered Medications: 11:08 Drug: Levalbuterol Inhalation 1.25 mg Route: Inhalation; hb 11:50 Follow up: Response: No adverse reaction hb 13:35 Drug: Piperacillin-Tazobactam IVPB 3.375 grams Route: IVPB; Infused Over: 60 mins; hb Site: right antecubital; 14:33 Follow up: Response: No adverse reaction; IV Status: Completed infusion; IV Intake: hb 100ml 14:33 Drug: vancoMYCIN IVPB 1 grams Route: IVPB; Infused Over: 2 hrs; Site: right antecubital; Medication: 10:28 VIS not applicable for this client. hb Intake: 14:33 IV: 100ml; Total: 100ml. hb Outcome: 15:31 ER care complete, transfer ordered by MD. steele 16:26 Transferred by ground EMS to [facility]. hb 16:26 Condition: stable 16:26 Instructed on the need for transfer, Demonstrated understanding of instructions. 17:14 Patient left the ED. hb Signatures: Dispatcher [employer] EDMS Ranjan Ovalles PA PA jmm Baxter, Heather RN RN Sharona Faith Lynsay RN RN ll1 Mary Javed, KODY PAS ts1 Corrections: (The following items were deleted from the chart) 10:30 10:27 58.97 kg; Height 5 ft. 3 in.; BMI: 23.0; Pain 9/10, Adult; ll1 hb
[2022-08-05 17:31] VITALS: TEMP 97.9
[2022-08-05 17:57] VITALS: BP 156/89; O2SAT 97
== END 2022-08-05 17:14 | disposition short-term general hospital (02) ==
LOC: ER 10:18
DX: N83.8 Other noninflammatory disorders of ovary, fallopian tube and broad ligament (principal); J18.9 Pneumonia, unspecified organism
CPT/HCPCS: 36415; 71275; 74177; 76830; 80053; 83605; 83690; 84484; 85025; 85610; 87040; 87811; J2543; J7050; J7614; Q9967

== ENCOUNTER 2022-10-29 01:04 | Emergency (ER) | payer SELFPAY ==
[2022-10-29] MEDS ORDERED: ROCURONIUM 50 MG/5 ML VIAL IV ONE (01:05)
[2022-10-29] MEDS ORDERED: ETOMIDATE 20 MG/10 ML VIAL IV ONE (01:05)
--- OUTSIDE RECORDS SUMMARY | 2022-10-29 01:11 | XMS REPORT | Continuity of Care Document ---
:1975 Author Organization [facility] t Address [address] [facility] [address] [place] [id number] Care Team Providers Name Role Phone No, Pcp [facility] Primary Care Physician Unavailable Vijay Jenkins Attending Clinician Sarah ECHEVERRIA, Sunlemuel In H Attending Clinician Aida Murdock MD Attending Clinician [phone] Clifton De Luna MD Attending Clinician [phone] Kristin Richardson MD Attending Clinician KRISTIN RICHARDSON Attending Clinician Unavailable SARAH, JIMMIE IN H Attending Clinician Unavailable Kelly Mariee MD Attending Clinician Nena Waller MD Attending Clinician Leonid Harris MD Attending Clinician CLIFTON DE LUNA Attending Clinician Unavailable KELLY MARIEE Attending Clinician Unavailable Dayron Sifuentes MD Attending Clinician [phone] DAYRON SIFUENTES Attending Clinician Unavailable ZAIN SALAS Attending Clinician Unavailable AIDA MURDOCK Admitting Clinician Unavailable LEONID HARRIS Admitting Clinician Unavailable DAYRON SIFUENTES Admitting Clinician Unavailable SCOTT MCWILLIAMS Admitting Clinician Unavailable Problems Condition Condition Condition Status Onset Resolution Last Treating Co mments Source Name Details Category Date Date Treatment Clinician Date Tubo-ovari Tubo-ovari Disease Active [facility] an abscess an abscess 5-21 [facility]ra kes 00:00: Medical 00 [place] Abdominal Abdominal Disease Recurre [facility] infection infection nce 5-16 [facility] 00:00: Medical 00 [place] Pelvic Pelvic Disease Active [facility] abscess in abscess in -15 [facility] k[facility] female female 00:00: Medical 00 [place] Acute Acute Disease Active 2018-[address] [facility] cholecysti cholecysti 2-03 Iqra kes tis tis 00:00: Medical 00 [place] Hypertensi Hypertensi Disease Recurre 2018-[address] on on nce 2- [facility] 00[facility]: Medical 00 [place] Seizure Seizure Disease Recurre 2018-[address] disorder disorder nce 2- [facility] 00:00: Medical 00 [place] Calculus Calculus Disease Active 2018-03 [facility] of of 04-19 [facility] gallbladde gallbladde 00:00: Me dical r without r without 00 Cent er cholecysti cholecysti tis tis without without obstructio obstructio n n Transamini Transamini Disease Active 2018-[address] tis tis 2-02 [facility] 00:00: Medical 00 [place] Anemia Anemia Disease Active 2018-[address] [facility] 2-02 [facility] 00[facility]00: Medical 00 [place] Thrombocyt Thrombocyt Disease Active 2018-[address] osis osis 2-02 [facility] 00:00: Medical 00 [place] Allergies, Adverse Reactions, Alerts Allergy Allergy Status Severity Reaction(s) Onset Inactive Treating Comm ents Source Name Type Date Date Clinician Mushroom Drug Active Anaphylaxis [facility] Allergy 5-15 [facility] 00:00: Medical 00 [place] Shellfis Drug Active Anaphylaxis [facility] h Allergy 5-15 [facility] Containi 00:00: Medical ng 00 [place] Products Aspirin Drug Active Anaphylaxis [facility] Allergy 5-15 [facility] 00:00: Medical 00 [place] ASPIRIN Allergy Active High Anaphylaxis 2022-0 SLE H 5-15 00:00: 00 MUSHROOM Allergy Active High Anaphylaxis 2022-0 [facility]H 5-15 00:00: 00 SHELLFIS Allergy Active High Anaphylaxis 2022-0 [facility] H 5-15 CONTAINI 00:00: NG 00 PRODUCTS Cranberr Drug Active Anaphylaxis, 2019- [facility] Allergy Hives, 2- [facility] Itching 00:00: Medical 00 Center FISH Allergy Active High Swelling 2018- SLSL CONTAINI 2-01 NG 00:00: PRODUCTS 00 Fish Drug Active Swelling 2018- [facility] Containi Allergy 2- [facility] ng 00:00: Medical Products 00 Center CRANBERR Allergy Active High Anaphylaxis 2018- SL EH Y 04-18 00:00: 00 Social History Social Habit Start Date Stop Date Quantity Comments Source History of tobacco 1992-02-[address] [facility] use 00:00:00 smoker Medical Center History [facility] Alcohol Comment Medical C enter History [facility] Alcohol Std Drinks Medica l Center History [facility] Transport Non-Med Medical Center Alcohol intake 2022-08-06 2022-08-06 Ex-drinker [facility] Reyna es 00:00:00 00:00:00 (finding) Medical Center History [facility] 2022-08-06 2022-08-[address] [facility] Transport Med 00:00:00 00:00:[address] [facility] 2022-08-06 2022-08-[address] [facility] Housing Unable to 00:00:00 00:00:00 Medical Center Pay History [facility] 2022-08-06 2022-08-[address] [facility] Housing Places 00:00:00 00:00:00 Medical Ce nter Lived History [facility] 2022-08-06 2022-08-[address] [facility] Housing Homeless 00:00:00 00:00:00 Medical Center Last Year Cigarettes smoked 2022-07-30 2022-07-[address] [facility] current (pack per 00:00:00 00:00:00 Medical Center day) - Reported Cigarette 2022-07-30 2022-07-[address] [facility] pack-years 00:00:00 00:00:00 Medical Center Tobacco use and 2022-07-30 2022-07-[address] [facility] exposure 00:00:00 00:00:00 non-user Medical Center History [facility] 2019-02-15 2019-02-[address] [facility] Alcohol Frequency 00:00:00 00:00:00 Medical Center History [facility] 2019-02-15 2019-02-[address] Lualshanda Alcohol Binge 00:00:00 00:00:[address] Sex [birth year] At [birth year] [place] Pathak kes 00:00:00 00:00:00 Medical Center Smoking Status Start Date Stop Date Source Occasional tobacco smoker 2022-07-30 00:00:00 I [facility] Medications Ordered Filled Start Stop Current Ordering Indication Dosage Frequency Signature Comments Components Source Medication Medication Date Date Medication? Clinician (SIG) Name Name furosemide Yes 20mg QD Take 1 [facility] (LASIX) 20 -28 tablet (20 Reyna es MG tablet 00:00: mg total) Med ical 00 by mouth Center in the morning. NIFEdipine Yes 60mg QD Take 1 [facility] (PROCARDIA- 5-27 tablet (60 Iqra kes XL) 60 MG 00:00: mg total) Med ical (OSM) 24 hr 00 by mouth Cent er tablet in the morning. metoprolol Yes 50mg Q.5D Take 1 [facility] t tartrate - tablet (50 [facility] (LOPRESSOR) 00:00: mg total) M edical 50 MG 00 by mouth Center tablet in the morning and 1 tablet (50 mg total) before bedtime. atorvastati 2023- Yes 40mg QD Take [address] n (LIPITOR) 08-11 05-26 tablet (40 L ukes 40 MG 00:00: 23:59 mg total) Medica l tablet 00 :00 by mouth Center nightly. doxycycline 2022- No 100mg Q.5D Take [address] (MONODOX) 08-11-03 capsule [facility] 100 MG 00:00: 23:59 (100 mg Medical capsule 00 :00 total) by Center mouth in the morning and 1 capsule (100 mg total) before bedtime. Do all this for 7 days. metroNIDAZO 2022- No 500mg Q.5D Take [address] LE (FLAGYL) 08-11 06-03 tablet [facility] 500 MG 00:00: 23:59 (500 mg Medical tablet 00 :00 total) by Center mouth in the morning and 1 tablet (500 mg total) before bedtime. Do all this for 7 days. . NIFEdipine 2022- No 60mg QD Take [address] (PROCARDIA- -04 08- tablet (60 L ukes XL) 60 MG 00:00: 00:00 mg total) Me dical (OSM) 24 hr 00 :00 by mouth Cent er tablet in the morning. atorvastati 2022- No 40mg QD Take [address] n (LIPITOR) 08-03 tablet (40 L ukes 40 MG 00:00: 00:00 mg total) Medica l tablet 00 :00 by mouth Center nightly. metroNIDAZO 2022- No 500mg Q.[id number] Take [address] LE (FLAGYL) 08-03 [id number] tablet [facility] 500 MG 00:00: 00:00 3D (500 mg Medical tablet 00 :00 total) by Center mouth in the morning and 1 tablet (500 mg total) at noon and 1 tablet (500 mg total) in the evening. . doxycycline 2022- No 100mg Q.5D Take [address] (MONODOX) 08-03 capsule [facility] 100 MG 00:00: 00:00 (100 mg Medical capsule 00 :00 total) by Center mouth in the morning and 1 capsule (100 mg total) before bedtime. divalproex 2022- No epilepsy 125mg QD Take [address] (DEPAKOTE) 5-15 05-15 mg by [facility]ukes 125 MG EC 14:52: 00:00 mouth Medica l tablet 09 :00 daily. [place] divalproex 2018-03 Yes epilepsy 125mg QD Take [address] (DEPAKOTE) 2-04 mg by Lukes 125 MG EC 10:36: mouth Medical tablet 04 daily. [place] divalproex 2018-03 Yes epilepsy 125mg QD Take [address] (DEPAKOTE) 2-04 mg by [facility]ukes 125 MG EC 10:36: mouth Medical tablet 04 daily. [place] divalproex 2018-03 Yes epilepsy 125mg QD Take [address] (DEPAKOTE) 2-04 mg by [facility]ukes 125 MG EC 10:36: mouth Medical tablet 04 daily. [place] famotidine 2018-03 Yes 1{tbl} Take 1 [facility] [...] [facility] (PEPCID) 20 1-30 tablet by Renya es MG tablet 00:00: mouth Medical 00 every 12 Center (twelve) hours. famotidine 2018-03- No 1{tbl} Take [address] (PEPCID) 20 1-30 05-15 tablet by Iqra kes MG tablet 00:00: 00:00 mouth Medica l 00 :00 every 12 Center (twelve) hours. Vital Signs Vital Name Observation Time Observation Value Comments Source HEIGHT 2022-08-05 19:35:00 157.5 cm WEIGHT 2022-08-05 19:35:00 58.968 kg HEIGHT 2022-08-05 19:35:00 157.5 cm WEIGHT 2022-08-05 19:35:00 58.968 kg HEIGHT 2022-08-05 19:35:00 157.5 cm WEIGHT 2022-08-05 19:35:00 58.968 kg WEIGHT 2022-07-30 14:32:00 58.968 kg HEIGHT 2022-07-30 14:32:00 157.5 cm WEIGHT 2022-07-30 14:32:00 58.968 kg HEIGHT 2022-07-30 14:32:00 157.5 cm WEIGHT 2022-07-30 14:32:00 58.968 kg HEIGHT 2022-07-30 14:32:00 157.5 cm Heart rate 2022-08-11 12:33:33 76 /min [facility] Respiratory rate 2022-08-11 12:33:33 18 /min [facility] Oxygen saturation in 2022-08-11 12:33:33 97 /min [facility] Arterial blood by Medical Ce nter Pulse oximetry Body temperature 2022-08-11 12:33:11 36.56 Nahomi [facility] Systolic blood 2022-08-11 12:32:45 129 mm[Hg] [facility] Diastolic blood 2022-08-11 12:32:45 80 mm[Hg] [facility] Body height 2022-08-05 19:35:00 157.5 cm [facility] Body weight 2022-08-05 19:35:00 58.968 kg [facility] BMI 2022-08-05 19:35:00 23.78 kg/m2 [facility] Procedures Procedure Date / Time Performing Clinician Source Performed BASIC METABOLIC PANEL 2022-08-11 04:41:00 Clifton De Luna [facility] MAGNESIUM 2022-08-11 04:41:00 Debra [facility] CALCIUM, IONIZED 2022-08-11 04:41:00 Javid [facility] PHOSPHORUS 2022-08-11 04:41:00 [facility] CBC W/PLT COUNT & AUTO 2022-08-11 04:41:00 [facility] CBC W/PLT COUNT & AUTO 2022-08-11 04:41:00 [facility] BASIC METABOLIC PANEL 2022-08-10 16:09:00 [facility] SODIUM, RANDOM URINE 2022-08-10 09:33:00 Debra [facility] UREA NITROGEN, RANDOM 2022-08-10 09:33:00 Debra Kristin [facility] CREATININE, RANDOM URINE 2022-08-10 09:33:00 Kristin Richardson [facility] OSMOLALITY, URINE 2022-08-10 09:33:00 Debra Kristin [facility] TSH/FREE T4 IF INDICATED 2022-08-10 09:33:00 Kristin Richardson [facility] CORTISOL 2022-08-10 09:33:00 Debra [facility] OSMOLALITY, SERUM 2022-08-10 09:33:00 Bartsch, [facility] T4, FREE 2022-08-10 09:33:00 [facility] (HEMOGRAM ONLY) 2022-08-10 05:06:00 [facility] BASIC METABOLIC PANEL 2022-08-10 05:06:[address] [facility] MAGNESIUM 2022-08-10 05:06:00 [facility] CBC (HEMOGRAM ONLY) 2022-08-09 03:38:00 Higinio [facility] BASIC METABOLIC PANEL 2022-08-09 03:38:[address] [facility] MAGNESIUM 2022-08-09 03:38:00 [facility] CBC (HEMOGRAM ONLY) 2022-08-08 04:25:00 [facility] BASIC METABOLIC PANEL 2022-08-08 04:25:00 [facility] B-TYPE NATRIURETIC FACTOR 2022-08-08 04:25:00 [facility] STD PANEL - CT/GC RNA 2022-08-07 16:52:00 HiginioSybilalbuquerquegeorge [facility] FUNGUS CULTURE + SMEAR 2022-08-07 10:22:00 Aida Murdock [facility] ANAEROBIC CULTURE 2022-08-07 10:22:00 Aida Murdock [facility] WOUND CULTURE + GRAM 2022-08-07 10:22:00 Higinio [facility] RADIOLOGIC GUIDANCE & 2022-08-07 10:20:00 Aiad Murdock [facility] INTERP/SPEC [facility] BASIC METABOLIC PANEL 2022-08-07 03:42:00 Athreya, [facility] CBC (HEMOGRAM ONLY) 2022-08-07 03:41:[address] [facility] CT ABDOMEN/PELVIS WITH IV 2022-08-06 00:22:00 [facility]AST [facility] SCREEN, URINE 2022-08-05 21:06:[address] [facility] CBC W/PLT COUNT & AUTO 2022-08-05 20:40:00 Fredrick [facility] BASIC METABOLIC PANEL 2022-08-05 20:40:[facility]/INR 2022-08-05 20:40:00 [facility] TYPE AND SCREEN, 2022-08-05 20:40:00 [facility] W/[facility]T COUNT & AUTO 2022-08-05 20:40:00 [facility]rick [facility] (CELLAVISION MANUAL DIFF) 2022-08-05 20:40:00 Fredrick [facility] TRANSTHORACIC ECHO FOR 2022-08-03 13:59:39 Unknown, Hl7 Doctor Kelly [facility] BASIC METABOLIC PANEL 2022-08-03 04:31:[address] [facility] CBC (HEMOGRAM ONLY) 2022-08-03 04:31:[address] [facility] [facility] CBC W/PLT COUNT & AUTO 2022-08-02 13:09:00 Ankit Laura [facility] (CELLAVISION MANUAL DIFF) 2022-08-02 13:09:00 Teook [facility] CBC W/PLT COUNT & AUTO 2022-08-02 13:09:00 Teook Laura [facility] BASIC METABOLIC PANEL 2022-08-02 13:09:00 TeookLaura [facility] NM MYOCARDIAL PERFUSION 2022-08-01 13:31:00 Judy Barros am [facility] SPECT, [facility] TREADMILL 2022-08-01 11:39:56 Unknown, 7 [facility] TOLERANCE(NON-NUCLEAR Medical Ce nter TREADMILL) ECG 12-LEAD 2022-08-01 10:14:26 Unknown, 7 [facility] ECG 12-LEAD 2022-08-01 10:14:26 Unknown, 7 [facility] ECG 12-LEAD 2022-08-01 10:13:38 Unknown, 7 [facility] ECG 12-LEAD 2022-08-01 10:13:38 Unknown, [address] TYPE AND SCREEN, 2022-08-01 04:47:00 Leonid Harris [facility] CBC W/PLT COUNT & AUTO 2022-08-01 04:47:00 Leonid Harris [facility] (CELLAVISION MANUAL DIFF) 2022-08-01 04:47:00 Leonid Harris sa [facility] CBC W/PLT COUNT & AUTO 2022-08-01 04:47:00 Leonid Harrisssa [facility] BASIC METABOLIC PANEL 2022-08-01 04:47:00 Leonid Harris [facility] MAGNESIUM 2022-08-01 04:47:00 Leonid Harris [facility] PHOSPHORUS 2022-08-01 04:47:00 Leonid Harris [facility] HEMOGLOBIN A1C 2022-08-01 04:47:00 Judy Barros [facility] PT/APTT 2022-08-01 04:47:00 [facility] HCG, QUANTITATIVE, 2022-08-01 04:47:00 [facility]onguth[facility] 2D ECHO W/ DOPPLER 2022-07-31 15:20:04 Judy Barros CH I [facility] (CW/PW/COLOR) [facility] ECG 12-LEAD 2022-07-31 15:01:[address] 12-LEAD 2022-07-31 15:01:36 Unknown, Hl7 [facility] ENDOVAGINAL EV 2022-07-31 12:52:00 [facility] PELVIS 2022-07-31 12:52:00 [facility] DOPPLER 2022-07-31 12:52:00 [facility] CBC W/PLT COUNT & AUTO 2022-07-31 03:09:00 Dewayne Reilly [facility] BASIC METABOLIC PANEL 2022-07-31 03:09:00 Dewayne Reilly [facility] MAGNESIUM 2022-07-31 03:09:00 Dewayne Reilly [facility] PHOSPHORUS 2022-07-31 03:09:00 Dewayne Reilly [facility] CBC W/PLT COUNT & AUTO 2022-07-31 03:09:00 Dewayne Reilly [facility] LIPID PANEL 2022-07-31 03:09:00 [facility]ST 1 VIEW PORTABLE 2022-07-30 16:42:00 Dewayne Reilly is [facility] / [facility]ED[facility] CBC W/PLT COUNT & AUTO 2022-07-30 15:38:00 Dayron Sifuentes i [facility] CBC W/PLT COUNT & AUTO 2022-07-30 15:38:00 Dewayne Reilly [facility] BASIC METABOLIC PANEL 2022-07-30 15:38:00 Dewayne Reilly [facility] PROTHROMBIN TIME/INR 2022-07-30 15:38:00 Dewayne Reilly C [facility] MAGNESIUM 2022-07-30 15:38:[address] [facility] Plan of Care Planned Activity Planned Date Details Comments Source Future Scheduled 2025-07-31 Lipid panel (procedure) [facility] Test 00:00:00 [code = 28462326] Medical Ce nter Future Scheduled 2022-11-16 Influenza Vaccine (#1) [facility] 00:[facility]00 [code = Influenza Vaccine Me dical Center (#1)] Future Scheduled 2022-03-[address] [facility] Test 00:00:00 (12+) [code = DEPRESSION Med ical Center SCREENING (12+)] Future Scheduled 2021-11-16 INFLUENZA VACCINE (#1) [facility] Test 00:00:00 [code = INFLUENZA VACCINE Me dical Center (#1)] Future Scheduled 2021 Lipid panel (procedure) [facility] Test 00:00:00 [code = 52774890] Medical Ce nter Future Scheduled 2021-03-[address] [facility] Test 00:00:00 (12+) [code = DEPRESSION Med ical Center SCREENING (12+)] Future Scheduled 2020-02-[address] [facility] Test 00:00:00 Counseling and Screening Med ical Center (12+) [code = Tobacco Cessation Counseling and Screening (12+)] Future Scheduled 1997 Screening for malignant [facility] Test 00:00:00 neoplasm of cervix Medical C enter (procedure) [code = 659551884] Future Scheduled 1997 Screening for malignant [facility] Test 00:00:00 neoplasm of cervix Medical C enter (procedure) [code = 971011274] Future Scheduled 1995 DTAP/TDAP/TD VACCINES ([address] [facility] Test 00:00:00 - Tdap) [code = Medical Cent er DTAP/TDAP/TD VACCINES (1 - Tdap)] Future Scheduled 1995 DTAP/TDAP/TD VACCINES ([address] [facility] Test 00:00:00 - Tdap) [code = Medical Cent er DTAP/TDAP/TD VACCINES (1 - Tdap)] Future Scheduled 1994 HEPATITIS C SCREENING [facility] Test 00:00:00 [code = HEPATITIS C Medical Center SCREENING] Future Scheduled 1994 HEPATITIS C [facility]CRE[facility]ING [facility] 00:00:00 [code = HEPATITIS C Medical Center SCREENING] Future Scheduled [address] Human immunodeficiency [facility] Test 00:00:00 virus screening Medical Cent er (procedure) [code = 406379357] Future Scheduled [address] [facility] Test 00:00:00 Counseling and Screening [facility] ical Center (12+) [code = Tobacco Cessation Counseling and Screening (12+)] Future Scheduled 1982 PNEUMOCOCCAL VACCINE 0-[address] [facility] Test 00:00:00 YRS (1 - PCV) [code = Medica l Center PNEUMOCOCCAL VACCINE 0-64 YRS (1 - PCV)] Future Scheduled 1982 Pneumococcal Vaccine: [facility] Test 00:00:00 0-64 Years (1 - PCV) Medical Center [code = Pneumococcal Vaccine: 0-64 Years (1 - PCV)] Future Scheduled 1976 COVID-19 VACCINE (#1) [facility] 00:00:00 [code = COVID-19 VACCINE Med ical Center (#1)] Future Scheduled 1976 COVID-19 VACCINE (#1) [facility] 00:00:00 [code = COVID-19 VACCINE Med ical Center (#1)] Future Scheduled 1976 CT Colonography (combo) [facility] Test 00:00:00 [code = CT Colonography [facility] (combo)] Future Scheduled 1976 Screening for malignant [facility] Test 00:00:00 neoplasm of colon Medical Ce nter (procedure) [code = 152815327] Future Scheduled 1976 Screening for malignant [facility] Test 00:00:00 neoplasm of colon Medical Ce nter (procedure) [code = 328256751] Future Scheduled 1976 Screening for malignant [facility] Test 00:00:00 neoplasm of colon Medical Ce nter (procedure) [code = 278030914] Future Scheduled 1976 Screening for malignant [facility] Test 00:00:00 neoplasm of colon Medical Ce nter (procedure) [code = 592662907] Future Scheduled 1975 Sigmoidoscopy [code = [facility] Test 00:00:00 Sigmoidoscopy] Medical Cente r Future Scheduled 1976 CT Colonography (combo) [facility] Test 00:00:00 [code = CT Colonography [facility] (combo)] Future Scheduled 1976 Screening for malignant [facility] Test 00:00:00 neoplasm of colon Medical Ce nter (procedure) [code = 051690142] Future Scheduled 1976 Screening for malignant [facility] Test 00:00:00 neoplasm of colon Medical Ce nter (procedure) [code = 307258714] Future Scheduled 1976 Screening for malignant [facility] Test 00:00:00 neoplasm of colon Medical Ce nter (procedure) [code = 093792325] Future Scheduled 1976 Screening for malignant [facility] Test 00:00:00 neoplasm of colon Medical Ce nter (procedure) [code = 612175001] Future Scheduled 1975 Sigmoidoscopy [code = [facility] Test 00[facility]00:00 Sigmoidoscopy] Medical Cente r Encounters Start End Encounter Admission Attending Care Care Encounter Source Date/Time Date/Time Type Type Clinicians Facility Department ID 2022-08-12 2022-08-12 Telephone Gregory [facility] [id number] 00:[facility]00 00:00:00 [facility] 2022-08-05 2022-08-11 [facility] [id number] 18:09:00 14:47:00 Encounter Aida Murdock Cl[facility] Mir [facility] 2022-08-05 2022-08-11 Inpatient ER [facility] Gynecology [id number] [facility] 18:09:00 14:47:00 [facility] 2022-08-05 2022-08-05 Travel [facility] [id number] [facility] 00:[facility]00 00:00:00 [facility] 2022-07-31 2022-08-03 [facility] [id number] 04:37:00 20:00:00 Encounter Nena [facility] Athreya, [facility], [facility] 2022-07-31 2022-08-03 [id number] [facility] 04:37:00 20:00:00 [facility] 2022-07-30 2022-07-31 Hospital [facility], [facility] [id number] 14:07:00 04:04:[address] [facility] 2022-07-30 2022-07-31 Inpatient ER [facility] Gynecology [id number] [facility] 14:07:00 04:04:00 DAYRON 2022-07-31 2022-07-31 Orders [facility] [id number] 00:00:00 00:00:00 Only [facility] 2022-07-30 2022-07-30 Travel [facility] [id number] [facility] 00:[facility]00 00:00:00 [facility] Results Test Description Test Time Test Comments Results Result Comments Source Fungus culture + smear 2022-09-06 08:28:10 Test Item Value Reference Range Interpretation Comme nts Result (test code = 6463-4) No fungus isolated in 28 days Fungus Smear (test code = 1406) No fungal elements seen [facility] [id number] 08:28:10 Test Item Value Reference Range Interpretation Comments CULTURE (BEAKER) (test No fungus isolated in code = 1095) 28 days FUNGUS SMEAR (BEAKER) No fungal elements seen (test code = 1406) [id number] 05:54:28 Test Item Value Reference Range Interpretation Comments MAGNESIUM (BEAKER) (test code = 1.9 mg/dL 1.6-2.6 627) Supervisor [employer] ID - [id number] 05:54:28 Test Item Value Reference Range Interpretation Comments PHOSPHORUS (BEAKER) (test code = 5.2 mg/dL 2.3-4.7 H 604) Supervisor [employer] ID - MARCOBASIC METABOLIC [id number] 05:54:27 Test Item Value Reference Range Interpretation Comments SODIUM (BEAKER) 135 meq/L 136-145 L (test code = 381) POTASSIUM 4.6 meq/L 3.5-5.1 (BEAKER) (test code = 379) CHLORIDE (BEAKER) 98 meq/L 98-107 (test code = 382) CO2 (BEAKER) 23 meq/L 22-29 (test code = 355) BLOOD UREA 13 mg/dL 7-21 NITROGEN (BEAKER) (test code = 354) CREATININE 1.19 mg/dL 0.57-1.25 (BEAKER) (test code = 358) GLUCOSE RANDOM 88 mg/dL 70-105 (BEAKER) (test code = 652) CALCIUM (BEAKER) 9.9 mg/dL 8.4-10.2 (test code = 697) EGFR [...] not appl icable for dialysis patien ts Supervisor [employer] ID - MARCOCBC W/PLT COUNT & AUTO [id number] 05:42:51 Test Item Value Reference Range Interpretation Comments WHITE BLOOD CELL COUNT (BEAKER) 15.4 K/ L 3.5-10.5 H (test code = 775) RED BLOOD CELL COUNT (BEAKER) 3.75 M/ L 3.93-5.22 L (test code = 761) HEMOGLOBIN (BEAKER) (test code = 11.3 GM/DL 11.2-15.7 410) HEMATOCRIT (BEAKER) (test code = 34.3 % 34.1-44.9 411) MEAN CORPUSCULAR VOLUME (BEAKER) 92 fL 79-95 (test code = 753) MEAN CORPUSCULAR HEMOGLOBIN 30.1 pg 25.6-32.2 (BEAKER) (test code = 751) MEAN CORPUSCULAR HEMOGLOBIN CONC 32.9 GM/DL 32.2-35.5 (BEAKER) (test code = 752) RED CELL DISTRIBUTION WIDTH 17.4 % 11.7-14.4 H (BEAKER) (test code = 412) PLATELET COUNT (BEAKER) (test 516 K/CU MM 150-450 H code = 756) MEAN PLATELET VOLUME (BEAKER) 8.9 fL 9.4-12.3 L (test code = 754) NUCLEATED RED BLOOD CELLS 0 /100 WBC 0-0 (BEAKER) (test code = 413) NEUTROPHILS RELATIVE PERCENT 78 % (BEAKER) (test code = 429) LYMPHOCYTES RELATIVE PERCENT 9 % (BEAKER) (test code = 430) MONOCYTES RELATIVE PERCENT 8 % (BEAKER) (test code = 431) EOSINOPHILS RELATIVE PERCENT 1 % (BEAKER) (test code = 432) BASOPHILS RELATIVE PERCENT 1 % (BEAKER) (test code = 437) NEUTROPHILS ABSOLUTE COUNT 12.05 K/ L 1.56-6.13 H (BEAKER) (test code = 670) LYMPHOCYTES ABSOLUTE COUNT 1.33 K/ L 1.18-3.74 (BEAKER) (test code = 414) MONOCYTES ABSOLUTE COUNT (BEAKER) 1.25 K/ L 0.24-0.36 H (test code = 415) EOSINOPHILS ABSOLUTE COUNT 0.12 K/ L 0.04-0.36 (BEAKER) (test code = 416) BASOPHILS ABSOLUTE COUNT (BEAKER) 0.12 K/ L 0.01-0.08 H (test code = 417) IMMATURE GRANULOCYTES-RELATIVE 3.60 % 0.00-1.00 H PERCENT (BEAKER) (test code = 2801) CALCIUM, [id number] 05:36:04 Test Item Value Reference Range Interpretation Comments CALCIUM IONIZED (BEAKER) (test 1.12 mmol/L 1.12-1.27 code = 698) PH, BLOOD (BEAKER) (test code = 7.42 1810) Anaerobic [id number] 02:03:45 Test Item Value Reference Range Interpretation Comments Result (test code = No anaerobes isolated 6463-4) [facility] [id number] 02:03:45 Test Item Value Reference Range Interpretation Comments CULTURE (BEAKER) (test No anaerobes isolated code = 1095) STD Panel - CT/GC [id number] 17:37:44 Test Item Value Reference Interpretation Comments Range C. trachomatis NOT DETECTED RNA, TMA (test code = 7251266) N. gonorrhoeae NOT DETECTED REFERENCE RA NGE: NOT RNA, TMA (test DETECTED Meth odology: code = 8097338) Transcriptio n Mediated Amplification ( TMA)to detect RNA. The analytical perf ormance characteristics of thisassay, when used to test SurePat h(TM) specimens haveb een determined by [employer] [facility]. Th e modificationsha ve not been cleared or approved by the FDA. This assayhas b een validated pursu ant to the CLIA regula tions andis used for clinical purpos es. For additional information, pl ease refer tohttps://educa [employer]son.Postcron/faq /RXC309(This li nk is being provided for informational/e ducatio nal purposes on ly.) SUE (test code = Performing Lab SUE) *[facility] [address] [address] Sylvie Gresham MD, PhD [facility] METABOLIC [id number] 16:40:09 Test Item Value Reference Range Interpretation Comments SODIUM (BEAKER) 134 meq/L 136-145 L (test code = 381) POTASSIUM 5.2 meq/L 3.5-5.1 H (BEAKER) (test code = 379) CHLORIDE (BEAKER) 97 meq/L 98-107 L (test code = 382) CO2 (BEAKER) 25 meq/L 22-29 (test code = 355) BLOOD UREA 11 mg/dL 7-21 NITROGEN (BEAKER) (test code = 354) CREATININE 1.09 mg/dL 0.57-1.25 (BEAKER) (test code = 358) GLUCOSE RANDOM 103 mg/dL 70-105 (BEAKER) (test code = 652) CALCIUM (BEAKER) 9.7 mg/dL 8.4-10.2 (test code = 697) EGFR (BEAKER) 63 Interpretati on of eGFR (test code = mL/min/1.73 values [...] not appl icable for dialysis patien ts Supervisor [employer] ID - BSOsmolality, [id number] 12:43:16 Test Item Value Reference Range Interpretation Comments Osmolality, Ur (test code 245 See_Comment [ Automated message] = 2695-5) The system Possible Web generated this result transmitted ref erence range: 50-1,200 mOsm/kg mOsm/kg . The reference range was not used to int erpret this result as normal/abnormal . Lab Interpretation (test Normal code = 21364-6) [facility] CenterOSMOLALITY, [id number] 12:43:16 Test Item Value Reference Range Interpretation Comments OSMOLALITY URINE 245 mOsm/kg See_Comment [Automated message] (BEAKER) (test code = The sy stem which 614) generated this result transmitted ref erence range: 50-1,200 mOsm/kg. The reference range was not used to int erpret this result as normal/abnormal . Sodium, random [id number] 11:48:27 Test Item Value Reference Range Interpretation Comments Sodium Urine (test 82 meq/L code = 2955-3) SUE (test code = Reference Range: No SUE) NormalsOperator ID - ADMIN [facility] CenterUrea Nitrogen, random [id number] 11:48:27 Test Item Value Reference Range Interpretation Comments Urea Nitrogen, Ur 121 mg/dL (test code = 3095-7) SUE (test code = Reference Range: No SUE) NormalsOperator ID - ADMIN [facility] FranciscoODIUM, RANDOM [id number] 11:48:27 Test Item Value Reference Range Interpretation Comments SODIUM URINE (BEAKER) (test code = 82 meq/L 243) Reference Range: No NormalsOperator ID - ADMINUREA NITROGEN, RANDOM URINE 2022-08-10 11:48:27 Test Item Value Reference Range Interpretation Comments UREA NITROGEN URINE (BEAKER) (test 121 mg/dL code = 538) Reference Range: No NormalsOperator ID - ADMINCreatinine, random [id number] 11:48:26 Test Item Value Reference Range Interpretation Comments Creatinine, Ur 20.9 mg/dL (test code = 2161-8) SUE (test code = Reference Range: No SUE) NormalsOperator ID - ADMIN [facility] CenterCREATININE, RANDOM [id number] 11:48:26 Test Item Value Reference Range Interpretation Comments CREATININE URINE (BEAKER) (test 20.9 mg/dL code = 375) Reference Range: No NormalsOperator ID - ADMINWound culture + gram stain 2022-08-10 11:24:49 Test Item Value Reference Range Interpretation Comments Result (test code = No growth 6463-4) Gram Stain Result <1+ gram positive cocci (test code = 1123) in pairs [facility] CenterWOUND CULTURE + GRAM [id number] 11:24:49 Test Item Value Reference Range Interpretation Comments CULTURE (BEAKER) (test No growth code = 1095) GRAM STAIN RESULT 4+ WBCs (BEAKER) (test code = 1123) GRAM STAIN RESULT <1+ gram positive cocci (BEAKER) (test code = in pairs 33036) T4, [id number] 11:12:44 Test Item Value Reference Range Interpretation Comments FREE T4 (BEAKER) (test code = 655) 1.25 ng/dL 0.70-1.48 Supervisor [employer] ID - AAHAMIDOSMOLALITY, [id number] 11:11:51 Test Item Value Reference Range Interpretation Comments OSMOLALITY, SERUM (BEAKER) (test 271 mOsm/kg 275-295 L code = 615) TSH/FREE T4 IF [id number] 10:36:27 Test Item Value Reference Range Interpretation Comments THYROID STIMULATING HORMONE 10.385 uIU/mL 0.350-4.940 H (BEAKER) (test code = 772) Supervisor [employer] ID - [id number] 10:30:32 Test Item Value Reference Range Interpretation Comments CORTISOL, TOTAL (BEAKER) (test 11.9 ug/dL 3.7-19.4 code = 2755) Supervisor [employer] ID - AAHAMIDCT, DRAINAGE, SOFT TISSUE FLUID [id number] 09:56:00Reason for exam:->tubo-ovarian abscess [facility] : 1975 Sex: FFINAL REPORT CT guided fluid aspiration Clinical History: Left lower quadrant fluid collection. Local anesthesia: Lidocaine. Conscious sedation: (Given after informed consent is obtained.) 2 mg of Versed and 100 mcg of fentanyl intravenously for total of 30 minutes. Technique: After informed consent is obtained, which included the risks of bleeding, infection, injury to adjacent structures/bowel, adverse medication reaction, the patient's abdomen is scanned. The fluid collection is localized. After the skin is prepped and draped in the usual sterile manner, and local anesthesia is achieved, a one-step needle is advanced into the fluid collection under CT guidance. Approximately 50 cc of purulent fluid is drained. The fluid was sent for the ordered studies. The patient tolerated the procedure well, without immediate complications. Patient disposition: The patient is discharged from the department in stable condition. Impression: Successful and uncomplicated CT guided fluid aspiration from left lower quadrant fluid collection. Signed: [facility] Verified Date/Time: 08/10/2022 09:56:28 Reading Location: [address] Neuro Reading Room MAGNESIUM 2022-08-10 06:16:41 Test Item Value Reference Range Interpretation Comments MAGNESIUM (BEAKER) 1.9 mg/dL 1.6-2.6 Specimen slightly (test code = 627) hemolyzed Supervisor [employer] ID - ADMINBASIC METABOLIC [id number] 06:16:41 Test Item Value Reference Range Interpretation Comments SODIUM (BEAKER) 129 meq/L 136-145 L (test code = 381) POTASSIUM 4.8 meq/L 3.5-5.1 Specimen slight ly (BEAKER) (test hemolyzed code = 379) CHLORIDE (BEAKER) 96 meq/L 98-107 L (test code = 382) CO2 (BEAKER) 21 meq/L 22-29 L (test code = 355) BLOOD UREA 12 mg/dL 7-21 NITROGEN (BEAKER) (test code = 354) CREATININE 1.00 mg/dL 0.57-1.25 Specimen slight ly (BEAKER) (test hemolyzed code = 358) GLUCOSE RANDOM 88 mg/dL 70-105 (BEAKER) (test code = 652) CALCIUM (BEAKER) 9.0 mg/dL 8.4-10.2 (test code = 697) EGFR (BEAKER) 70 Interpretatio n of eGFR (test code = [...] not appl icable for dialysis patien ts Supervisor [employer] ID - ADMINSpecimen slightly ictericCBC (HEMOGRAM ONLY)2022-08-10 05:54:45 Test Item Value Reference Range Interpretation Comments WHITE BLOOD CELL COUNT 19.7 K/ L 3.5-10.5 H (BEAKER) (test code = 775) RED BLOOD CELL COUNT 3.52 M/ L 3.93-5.22 L (BEAKER) (test code = 761) HEMOGLOBIN (BEAKER) 10.5 GM/DL 11.2-15.7 L (test code = 410) HEMATOCRIT (BEAKER) 31.5 % 34.1-44.9 L (test code = 411) MEAN CORPUSCULAR 90 fL 79-95 Discordant results VOLUME (BEAKER) (test compar ed to previous code = 753) results; clinic al correlation req uired MEAN CORPUSCULAR 29.8 pg 25.6-32.2 HEMOGLOBIN (BEAKER) (test code = 751) MEAN CORPUSCULAR 33.3 GM/DL 32.2-35.5 HEMOGLOBIN CONC (BEAKER) (test code = 752) RED CELL DISTRIBUTION 17.5 % 11.7-14.4 H WIDTH (BEAKER) (test code = 412) PLATELET COUNT 412 K/CU MM 150-450 (BEAKER) (test code = 756) MEAN PLATELET VOLUME 9.2 fL 9.4-12.3 L (BEAKER) (test code = 754) NUCLEATED RED BLOOD 0 /100 WBC 0-0 CELLS (BEAKER) (test code = 413) [id number] 04:19:50 Test Item Value Reference Range Interpretation Comments MAGNESIUM (BEAKER) (test code = 1.3 mg/dL 1.6-2.6 L 627) Supervisor [employer] ID - MMBASIC METABOLIC [id number] 04:19:50 Test Item Value Reference Range Interpretation Comments SODIUM (BEAKER) 134 meq/L 136-145 L (test code = 381) POTASSIUM 4.5 meq/L 3.5-5.1 (BEAKER) (test code = 379) CHLORIDE (BEAKER) 98 meq/L 98-107 (test code = 382) CO2 (BEAKER) 23 meq/L 22-29 (test code = 355) BLOOD UREA 10 mg/dL 7-21 NITROGEN (BEAKER) (test code = 354) CREATININE 1.05 mg/dL 0.57-1.25 (BEAKER) (test code = 358) GLUCOSE RANDOM 98 mg/dL 70-105 (BEAKER) (test code = 652) CALCIUM (BEAKER) 8.5 mg/dL 8.4-10.2 (test code = 697) EGFR (BEAKER) 66 Interpretatio n of eGFR (test code = [...] not appl icable for dialysis patien ts Supervisor [employer] ID - MMSpecimen slightly ictericCBC (HEMOGRAM ONLY)2022-08-09 04:01:36 Test Item Value Reference Range Interpretation Comments WHITE BLOOD CELL COUNT (BEAKER) 22.3 K/ L 3.5-10.5 H (test code = 775) RED BLOOD CELL COUNT (BEAKER) 3.64 M/ L 3.93-5.22 L (test code = 761) HEMOGLOBIN (BEAKER) (test code = 10.7 GM/DL 11.2-15.7 L 410) HEMATOCRIT (BEAKER) (test code = 31.1 % 34.1-44.9 L 411) MEAN CORPUSCULAR VOLUME (BEAKER) 85 fL 79-95 (test code = 753) MEAN CORPUSCULAR HEMOGLOBIN 29.4 pg 25.6-32.2 (BEAKER) (test code = 751) MEAN CORPUSCULAR HEMOGLOBIN CONC 34.4 GM/DL 32.2-35.5 (BEAKER) (test code = 752) RED CELL DISTRIBUTION WIDTH 17.2 % 11.7-14.4 H (BEAKER) (test code = 412) PLATELET COUNT (BEAKER) (test 316 K/CU MM 150-450 code = 756) MEAN PLATELET VOLUME (BEAKER) 8.8 fL 9.4-12.3 L (test code = 754) NUCLEATED RED BLOOD CELLS 0 /100 WBC 0-0 (BEAKER) (test code = 413) BASIC METABOLIC [id number] 06:27:34 Test Item Value Reference Range Interpretation Comments SODIUM (BEAKER) 134 meq/L 136-145 L (test code = 381) POTASSIUM 3.9 meq/L 3.5-5.1 (BEAKER) (test code = 379) CHLORIDE (BEAKER) 99 meq/L 98-107 (test code = 382) CO2 (BEAKER) 22 meq/L 22-29 (test code = 355) BLOOD UREA 11 mg/dL 7-21 NITROGEN (BEAKER) (test code = 354) CREATININE 1.09 mg/dL 0.57-1.25 (BEAKER) (test code = 358) GLUCOSE RANDOM 99 mg/dL 70-105 (BEAKER) (test code = 652) CALCIUM (BEAKER) 8.5 mg/dL 8.4-10.2 (test code = 697) EGFR (BEAKER) 63 Interpretatio n of eGFR (test code = [...] not appl icable for dialysis patien ts Supervisor [employer] ID - DAMIÁN WSpecimen slightly ictericB-TYPE NATRIURETIC FACTOR (BNP) 2022-08-08 05:56:50 Test Item Value Reference Range Interpretation Comments B-TYPE NATRIURETIC PEPTIDE (BEAKER) 202 pg/mL 0-100 H (test code = 700) Supervisor [employer] ID - BSCBC (HEMOGRAM ONLY)2022-08-08 05:36:13 Test Item Value Reference Range Interpretation Comments WHITE BLOOD CELL COUNT (BEAKER) 24.1 K/ L 3.5-10.5 H (test code = 775) RED BLOOD CELL COUNT (BEAKER) 3.48 M/ L 3.93-5.22 L (test code = 761) HEMOGLOBIN (BEAKER) (test code = 10.4 GM/DL 11.2-15.7 L 410) HEMATOCRIT (BEAKER) (test code = 30.5 % 34.1-44.9 L 411) MEAN CORPUSCULAR VOLUME (BEAKER) 88 fL 79-95 (test code = 753) MEAN CORPUSCULAR HEMOGLOBIN 29.9 pg 25.6-32.2 (BEAKER) (test code = 751) MEAN CORPUSCULAR HEMOGLOBIN CONC 34.1 GM/DL 32.2-35.5 (BEAKER) (test code = 752) RED CELL DISTRIBUTION WIDTH 17.4 % 11.7-14.4 H (BEAKER) (test code = 412) PLATELET COUNT (BEAKER) (test 266 K/CU MM 150-450 code = 756) MEAN PLATELET VOLUME (BEAKER) 9.1 fL 9.4-12.3 L (test code = 754) NUCLEATED RED BLOOD CELLS 0 /100 WBC 0-0 (BEAKER) (test code = 413) BASIC METABOLIC [id number] 05:39:11 Test Item Value Reference Range Interpretation Comments SODIUM (BEAKER) 130 meq/L 136-145 L (test code = 381) POTASSIUM 4.2 meq/L 3.5-5.1 (BEAKER) (test code = 379) CHLORIDE (BEAKER) 97 meq/L 98-107 L (test code = 382) CO2 (BEAKER) 20 meq/L 22-29 L (test code = 355) BLOOD UREA 14 mg/dL 7-21 NITROGEN (BEAKER) (test code = 354) CREATININE 1.07 mg/dL 0.57-1.25 (BEAKER) (test code = 358) GLUCOSE RANDOM 96 mg/dL 70-105 (BEAKER) (test code = 652) CALCIUM (BEAKER) 8.8 mg/dL 8.4-10.2 (test code = 697) EGFR (BEAKER) 65 Interpretatio n of eGFR (test code = mL/min/1.73 values Stage De scription 1092) sq m Result G1 Ceci l or high >=90 G2 Mildly decreased 60-89 G3a Mildl y to moderately 45- 59 G3b Moderately to s everely 30-44 G4 Severl y decreased 15-29 G5 Kidney failure <15Reported eGF R is based on the CKD-EPI 2020 equation that d oes not use a race coefficientEsti mated GFR is not as accur ate as Creatinine María Elena pittman in predicting glom erular filtration rate . Estimated GFR is not appl icable for dialysis patien ts Supervisor [employer] ID - ADMINSpecimen slightly ictericCBC (HEMOGRAM ONLY)2022-08-07 04:54:11 Test Item Value Reference Range Interpretation Comments WHITE BLOOD CELL COUNT (BEAKER) 28.3 K/ L 3.5-10.5 H (test code = 775) RED BLOOD CELL COUNT (BEAKER) 3.95 M/ L 3.93-5.22 (test code = 761) HEMOGLOBIN (BEAKER) (test code = 11.8 GM/DL 11.2-15.7 410) HEMATOCRIT (BEAKER) (test code = 35.0 % 34.1-44.9 411) MEAN CORPUSCULAR VOLUME (BEAKER) 89 fL 79-95 (test code = 753) MEAN CORPUSCULAR HEMOGLOBIN 29.9 pg 25.6-32.2 (BEAKER) (test code = 751) MEAN CORPUSCULAR HEMOGLOBIN CONC 33.7 GM/DL 32.2-35.5 (BEAKER) (test code = 752) RED CELL DISTRIBUTION WIDTH 17.3 % 11.7-14.4 H (BEAKER) (test code = 412) PLATELET COUNT (BEAKER) (test 255 K/CU MM 150-450 code = 756) MEAN PLATELET VOLUME (BEAKER) 8.5 fL 9.4-12.3 L (test code = 754) NUCLEATED RED BLOOD CELLS 0 /100 WBC 0-0 (BEAKER) (test code = 413) CT, [id number] 07:32:00Unlisted Reason for Exam - Click Yes and Enter Reason Below->NoProtocol Please Specify:->Standard ProtocolWill this procedure require oral contrast?->No [facility] 1975 Sex: FFINAL REPORT CT abdomen and pelvis with contrast History: Tubo-ovarian abscess Comparison: none Technique: serial axial imaging was performed following up to 100cc of non ionic iodinated intravenous contrast as per departmental protocol. Multiplanar images are reconstructed and reviewed when indicated. This CT examination is performed using one or more of the following dose reduction t echniques: Automated exposure control, adjustment of the mA and /or kV according to patient size, and/or use of iterative reconstruction technique. Findings:Unremarkable appearance of pancreas and spleen. Unremarkable appearance of the liver. The patient is status post cholecystectomy. Unremarkable topher earance of the adrenal glands. Moderate cortical scarring/atrophy of the right kidney. There is no evidence of hydronephrosis. There is no concerning renal mass. . The previous peripherally enhancing cystic structure within the left adnexa with significant surrounding inflammatory change has increasedin size, now measuring 6.5 x 3.6 cm in the axial plane, previously 5.0 x 2.9 cm. There is persistentfat stranding along the left gonadal vessels and within the retroperitoneum. Mild retroperitoneal lymphadenopathy is likely reactive. No small or large bowel obstruction. Long segment thickening of thesigmoid colon is likely reactive secondary to inflammatory changes within the left adnexa. No findings to indicate acute appendicitis. No abdominal aortic aneurysm. No aggressive osseous lesion. Impression:Findings remain suspicious for left adnexal tubo-ovarian abscess, with mild increase in size from 07/30/2022. Signed: Kam Vigil MDReport Verified Date/Time: 08/06/2022 07:32:46 Reading Location: [facility] Diagnostic Imaging Reading Room - [place] [address] Pregnancy Screen, urine 2022-08-05 21:59:05 Test Item Value Reference Range Interpretation Comments Preg Test, Ur (test code = 2112-1) Negative Negative Lab Interpretation (test code = Normal 15842-1) [facility], [id number] 21:59:05 Test Item Value Reference Range Interpretation Comments TEST URINE (BEAKER) (test Negative Negative code = 583) (CELLAVISION MANUAL DIFF)2022-08-05 21:43:05 Test Item Value Reference Range Interpretation Comments NEUTROPHILS - REL 75 % (CELLAVISION)(BEAKER) (test code = 2816) LYMPHOCYTES - REL 6 % (CELLAVISION)(BEAKER) (test code = 2817) MONOCYTES - REL 14 % (CELLAVISION)(BEAKER) (test code = 2818) BASOPHILS - REL 1 % (CELLAVISION)(BEAKER) (test code = 2820) METAMYELOCYTES - REL 1 % 0-0 H (CELLAVISION)(BEAKER) (test code = 2821) MYELOCYTES - REL 2 % 0-0 H (CELLAVISION)(BEAKER) (test code = 2822) BANDS - REL (CELLAVISION)(BEAKER) 1 % 0-10 (test code = 2826) NEUTROPHILS - ABS 20.18 K/ul 1.56-6.13 H (CELLAVISION)(BEAKER) (test code = 2830) LYMPHOCYTES - ABS 1.61 K/ul 1.18-3.74 (CELLAVISION)(BEAKER) (test code = 2831) MONOCYTES - ABS 3.77 K/uL 0.24-0.36 H (CELLAVISION)(BEAKER) (test code = 2832) BASOPHILS - ABS 0.27 K/uL 0.01-0.08 H (CELLAVISION)(BEAKER) (test code = 2835) METAMYELOCYTES - ABS 0.27 K/uL 0.00-0.00 H (CELLAVISION)(BEAKER) (test code = 2836) MYELOCYTES-ABS 0.54 K/uL 0.00-0.00 H (CELLAVISION)(BEAKER) (test code = 2837) BANDS - ABS (CELLAVISION)(BEAKER) 0.27 K/uL 0.00-0.80 (test code = 2840) TOTAL COUNTED (BEAKER) (test code 100 = 1351) PLT MORPHOLOGY (BEAKER) (test code Normal = 486) SMUDGE CELLS (BEAKER) (test code = Present 1371) POLYCHROMATOPHILLIC RBCS(BEAKER) 3+ many (test code = 478) ANISOCYTOSIS (BEAKER) (test code = 1+ few 961) PLATELET CONCENTRATION Adequate (CELLAVISION)(BEAKER) (test code = 3438) Supervisor [employer] ID - Sal[place] comments: Slide comments:BASIC METABOLIC PANEL 2022-08-05 21:38:16 Test Item Value Reference Range Interpretation Comments SODIUM (BEAKER) 135 meq/L 136-145 L (test code = 381) POTASSIUM 3.5 meq/L 3.5-5.1 (BEAKER) (test code = 379) CHLORIDE (BEAKER) 97 meq/L 98-107 L (test code = 382) CO2 (BEAKER) 21 meq/L 22-29 L (test code = 355) BLOOD UREA 14 mg/dL 7-21 NITROGEN (BEAKER) (test code = 354) CREATININE 1.37 mg/dL 0.57-1.25 H (BEAKER) (test code = 358) GLUCOSE RANDOM 73 mg/dL 70-105 (BEAKER) (test code = 652) CALCIUM (BEAKER) 8.9 mg/dL 8.4-10.2 (test code = 697) EGFR (BEAKER) 48 Interpretatio n of eGFR (test code = [...] not appl icable for dialysis patien ts Supervisor [employer] ID - ADMINSpecimen slightly ictericPROTHROMBIN TIME/[id number] 21:25:45 Test Item Value Reference Range Interpretation Comments PROTIME (BEAKER) (test code = 15.4 seconds 11.9-14.2 H 759) INR (BEAKER) (test code = 370) 1.25 <=5.90 RECOMMENDED COUMADIN/WARFARIN INR THERAPY RANGESSTANDARD DOSE: 2.0 - 3.0 Includes: PROPHYLAXIS for venous thrombosis, systemic embolization; TREATMENT for venous thrombosis and/or pulmonary embolus.HIGH RISK: Target INR is 2.5-3.5 for patients with mechanical heart valves.CBC W/PLT COUNT & AUTO [id number] 21:20:49 Test Item Value Reference Range Interpretation Comments WHITE BLOOD CELL COUNT (BEAKER) 26.9 K/ L 3.5-10.5 H (test code = 775) RED BLOOD CELL COUNT (BEAKER) 4.12 M/ L 3.93-5.22 (test code = 761) HEMOGLOBIN (BEAKER) (test code = 12.2 GM/DL 11.2-15.7 410) HEMATOCRIT (BEAKER) (test code = 36.1 % 34.1-44.9 411) MEAN CORPUSCULAR VOLUME (BEAKER) 88 fL 79-95 (test code = 753) MEAN CORPUSCULAR HEMOGLOBIN 29.6 pg 25.6-32.2 (BEAKER) (test code = 751) MEAN CORPUSCULAR HEMOGLOBIN CONC 33.8 GM/DL 32.2-35.5 (BEAKER) (test code = 752) RED CELL DISTRIBUTION WIDTH 17.2 % 11.7-14.4 H (BEAKER) (test code = 412) PLATELET COUNT (BEAKER) (test 211 K/CU MM 150-450 code = 756) MEAN PLATELET VOLUME (BEAKER) 8.8 fL 9.4-12.3 L (test code = 754) NUCLEATED RED BLOOD CELLS 0 /100 WBC 0-0 (BEAKER) (test code = 413) Transthoracic echo [id number] 16:18:18Ejection FractionSLEH ECHO HEARTLAB MKCKESSON [facility]BAS[facility] METABOLIC [id number] 05:26:56 Test Item Value Reference Range Interpretation Comments SODIUM (BEAKER) 131 meq/L 136-145 L (test code = 381) POTASSIUM 3.3 meq/L 3.5-5.1 L (BEAKER) (test code = 379) CHLORIDE (BEAKER) 96 meq/L 98-107 L (test code = 382) CO2 (BEAKER) 23 meq/L 22-29 (test code = 355) BLOOD UREA 16 mg/dL 7-21 NITROGEN (BEAKER) (test code = 354) CREATININE 1.38 mg/dL 0.57-1.25 H (BEAKER) (test code = 358) GLUCOSE RANDOM 99 mg/dL 70-105 (BEAKER) (test code = 652) CALCIUM (BEAKER) 8.6 mg/dL 8.4-10.2 (test code = 697) EGFR (BEAKER) 48 Interpretatio n of eGFR (test code = [...] not appl icable for dialysis patien ts Supervisor [employer] ID - MMSpecimen slightly ictericCBC (HEMOGRAM ONLY)2022-08-03 [...] CONCENTRATION Decreased (CELLAVISION)(BEAKER) (test code = 3438) Supervisor [employer] ID - [place] comments: Slide comments:CBC W/PLT COUNT & AUTO [id number] 14:52:12 Test Item Value Reference Range Interpretation [...] (BEAKER) (test code = 413) BASIC METABOLIC [id number] 13:40:34 Test Item Value Reference Range Interpretation [...] 358) GLUCOSE RANDOM 143 mg/dL 70-105 H (BEAKER) (test code = 652) CALCIUM (BEAKER) 8.5 mg/dL 8.4-10.2 (test code = 697) EGFR (BEAKER) 50 Interpretatio n of eGFR (test code = mL/min/1.73 values Stage De scription 1092) sq m Result G1 Ceci l or high >=90 G2 Mildly decreased 60-89 G3a Mildl y to moderately 45-5 9 G3b Moderately to s everely 30-44 G4 Severl y decreased 15-29 G5 Kidne y failure <15Reported eGF R is based on the CKD-EPI 202 equation that d oes not use a race coefficientEsti mated GFR is not as accur ate as Creatinine María Elena zain in predicting glom erular filtration rate . Estimated GFR is not appl icable for dialysis patien ts Supervisor [employer] ID - ADMINSpecimen moderately ictericMYOCARD IMAGING, MULTI, PHARM, [id number] 15:12:00Unlisted Reason for Exam - Click Yes and Enter Reason Below->NoCHI [facility]: IV[facility]N GEETHA L : 1975 Sex: FFINAL REPORT PROCEDURE: MYOCARDIAL PERFUSION SPECT IMAGING (Rest/Stress)CPT CODE: 61054 INDICATION: Cardiac screening, high CAD risk CARDIOVASCULAR [...] is no prior study for comparison. Signed: Robbin Cerna MDReport Verified Date/Time: 08/01/2022 15:12:23 HEMOGLOBIN A1C 2022-08-01 13:52:52 Test Item Value Reference Range Interpretation Comments HEMOGLOBIN A1C 5.0 % See_Comment [Automated m essage] ELECTROPHORESIS (BEAKER) The system which (test code = 3811) generated this result transmitted ref erence range: <=5.6%. The reference range was not used to int erpret this result as normal/abnormal . "The A1c is measured using a [facility]-certified method. HbA1c value equal to or greater than 6.5% as thediagnosis cutoff for diabetes. An HbA1c value of 5.7- 6.4% indicates increased risk for diabetes (prediabetes)."[employer]visor [employer] ID - ADM (CELLAVISION MANUAL DIFF)2022-08-01 08:26:35 [...] CONCENTRATION Decreased (CELLAVISION)(BEAKER) (test code = 3438) Supervisor [employer] ID - Remy Dato-onUser comments: Slide comments:CBC W/PLT COUNT & AUTO [id number] 08:26:34 Test Item Value Reference Range Interpretation [...] (BEAKER) (test code = 413) HCG, QUANTITATIVE, [id number] 05:48:18 Test Item Value Reference Range Interpretation Comments GONADOTROPIN, CHORIONIC (HCG) QUANT < mIU/mL 0-10 (BEAKER) (test code = 649) Non- Females: <10 mIU/mL Females: Gestation Age Reference Range(mIU/mL) 0.2-1 Week 5-50 1-2 Weeks 50-500 2-3 Weeks 100-5,000 3-4 Weeks 500-10,000 4-5 Weeks 1,000-50,000 5-6 Weeks 10,000-100,000 6-8 Weeks 15,000- 200,000 2-3 Months 10,000-100,000 Supervisor [employer] ID - DBBASIC METABOLIC PANEL 2022-08-01 05:41:39 [...] not appl icable for dialysis patien ts Supervisor [employer] ID - DAMIÁN WSpecimen moderately [id number] 05:41:38 Test Item Value Reference Range Interpretation Comments MAGNESIUM (BEAKER) (test code = 1.7 mg/dL 1.6-2.6 627) Supervisor [employer] ID - DAMIÁN [id number] 05:41:38 Test Item Value Reference Range Interpretation Comments PHOSPHORUS (BEAKER) (test code = 3.0 mg/dL 2.3-4.7 604) Supervisor [employer] ID - DAMIÁN [id number] 05:39:59 Test Item Value Reference Range Interpretation [...] 2.5-3.5 for patients with mechanical heart valves.LIPID [id number] 22:24:08 Test Item Value Reference Range Interpretation Comments TRIGLYCERIDES (BEAKER) (test code = 51 mg/dL 540) CHOLESTEROL (BEAKER) (test code = 102 mg/dL 631) HDL CHOLESTEROL (BEAKER) (test code 45 mg/dL = 976) LDL CHOLESTEROL CALCULATED (BEAKER) 47 mg/dL (test code = 633) Triglyceride Reference Range: Low Risk <150 Borderline 150-199 High Risk 200- 499 Very High Risk >=500Cholesterol Reference Range: Low Risk <200 Borderline 200-239 High Risk >240HDL Cholesterol Reference Range: Low Risk >=60 High Risk <40LDL Cholesterol Reference Range: Optimal <100 Near Optimal 100-129 Borderline 130-159 High 160-189 Very High >=190 Supervisor [employer] ID - [id number] ID - [id number] ID - [id number] slightly icteric U/S, ENDOVAGINAL (EV)2022-07-31 14:38:00Reason for exam:->concern for [facility] : 1975 Sex: FFINAL REPORT TECHNIQUE: Transabdominal [...] consider continued follow-up imaging with ultrasound. Signed: Shauna Mendoza [facility] Verified Date/Time: 07/31/2022 14:38:44 U/S, [id number] 14:38:00Reason for exam:->[facility] : 1975 Sex: FFINAL REPORT TECHNIQUE: Transabdominal [...] consider continued follow-up imaging with ultrasound. Signed: Shauna Mendoza [facility] Verified Date/Time: 07/31/2022 14:38:44 U/S, DUPLEX, [id number] 14:38:00 [facility] : 1975 Sex: FFINAL REPORT TECHNIQUE: Transabdominal [...] consider continued follow-up imaging with ultrasound. Signed: Shauna Mendoza [facility] Verified Date/Time: 07/31/2022 14:38:44 CBC W/PLT COUNT & AUTO [id number] 03:57:39 Test Item Value Reference Range Interpretation [...] H PERCENT (BEAKER) (test code = 2801) [id number] 03:56:52 Test Item Value Reference Range Interpretation Comments MAGNESIUM (BEAKER) (test code = 1.5 mg/dL 1.5-3.0 627) Supervisor [employer] ID - [id number] ID - [id number] ID - [id number] ID - [id number] BASIC METABOLIC [id number] 03:55:31 Test Item Value Reference Range Interpretation [...] (test code = 697) EGFR (BEAKER) 52 Interpretati on of eGFR (test code = mL/min/1.73 values [...] not appl icable for dialysis patien ts Supervisor [employer] ID - [id number] ID - [id number] ID - [id number] ID - [id number] ID - [id number] ID - [id number] ID - [id number] ID - [id number] ID - [id number] slightly [id number] 03:54:07 Test Item Value Reference Range Interpretation Comments PHOSPHORUS (BEAKER) (test code = 4.0 mg/dL 2.5-4.5 604) Supervisor [employer] ID - [id number] 18:37:08 Test Item Value Reference Range Interpretation Comments MAGNESIUM (BEAKER) (test code = 1.6 mg/dL 1.5-3.0 627) Supervisor [employer] ID - [id number] ID - [id number] ID - [id number] ID - [id number], CHEST, 1 VIEW, NON [id number] 16:51:00Reason for exam:->SOB, wheezingShould this be performed at the bedside?->Yes [facility] : 1975 Sex: FFINAL REPORT RAD, CHEST, 1 VIEW, NON DEPT TECHNIQUE: Frontal view(s) of the chest. INDICATION: SOB, wheezing COMPARISON: None FINDINGS/IMPRESSION: Lines/Tubes: None Lungs/pleura: No consolidation. Mild perihilar prominence with mild interstitial opacities, may represent mild edema. No pleural effusion. No pneumothorax. Heart and Mediastinum: Unremarkable. Soft Tissues and Bones: Unremarkable. Signed: Sarah Fenton MDReport Verified Date/Time: 07/30/2022 16:51:52 Reading Location: [facility] Radiology Reading Room BASI METABOLIC PANEL 2022-07-30 [...] not appl icable for dialysis patien ts Supervisor [employer] ID - [id number] ID - [id number] ID - [id number] ID - [id number] ID - [id number] ID - [id number] ID - [id number] ID - [id number] ID - [id number] ID - [id number] ID - [id number] ID - [id number] TIME/INR 2022-07-30 16:00:01 Test Item Value Reference [...] mechanical heart valves.CBC W/PLT COUNT & AUTO [id number] 15:52:31 Test Item Value Reference Range Interpretation [...] PERCENT (BEAKER) (test code = 2801) TISSUE [id number] 12:09:00Surgical Pathology Report Case: [id number] Authorizing Provider: Trudy James MD Collected: 02/17/2019 1126 Ordering Location: [address] Received: 02/17/2019 1147 Service Pathologist: Angela Beach MD Specimen: Gallbladder A. GALLBLADDER, CHOLECYSTECTOMY: - CHRONIC CHOLECYSTITIS WITH CHOLELITHIASIS. Signing Pathologist Direct Phone Line: [phone] signed by Angela Beach MD on 02/19/2019 at 12:09 [id number] renal mass Gallbladder Received in formalin labeled [...] trabeculated. The wall measures 0.2 cm thick. Construction Contractor sections are submitted in A1-A2, with the inked proximal margin is A1. PA/ew Performed.[facility], Department of Pathology, [address] [place] [address], [facility], [facility] of Pathology,[address] [place] [address], [facility], Departmentof Pathology, [address] [place] [address], EDO W/PLT COUNT & AUTO [id number] 07:03:00 Test Item Value Reference Range Interpretation [...] (BEAKER) (test code = 2801) BASIC METABOLIC [id number] 06:57:00 Test Item Value Reference Range Interpretation [...] 697) EGFR (BEAKER) (test 57 mL/min/1.73 ESTIMA KRAOLINA GFR IS code = 1092) sq m NOT ACCURATE CREATININE CLEARANCE IN PREDICTING GLOMERULAR FILTRATION RATE . ESTIMATED GFR I S NOT APPLICABLE FOR DIALYSIS PATIEN TS. HEPATIC FUNCTION [id number] 06:57:00 Test Item Value Reference Range Interpretation [...] (test code = 347) hemolyzed HEPATIC FUNCTION [id number] 06:57:00 Test Item Value Reference Range Interpretation [...] 72 U/L 6-55 H 347) BASIC METABOLIC [id number] 06:57:00 Test Item Value Reference Range Interpretation [...] PATIEN TS. CBC W/PLT COUNT & AUTO [id number] 06:28:00 Test Item Value Reference Range Interpretation [...] PERCENT (BEAKER) (test code = 2801) SCREEN, [id number] 07:28:00 Test Item Value Reference Range Interpretation Comments TEST URINE (BEAKER) (test Negative code = 583) [id number] 07:28:00 Test Item Value Reference Range Interpretation Comments MAGNESIUM (BEAKER) 2.0 mg/dL 1.6-2.6 Specimen moderately (test code = 627) hemolyzed [id number] 07:28:00 Test Item Value Reference Range Interpretation Comments PHOSPHORUS (BEAKER) 4.0 mg/dL 2.3-4.7 Specimen moderately (test code = 604) hemolyzed BASIC METABOLIC [id number] 07:28:00 Test Item Value Reference Range Interpretation [...] APPLICABLE FOR DIALYSIS PATIEN TS. HEPATIC FUNCTION [id number] 07:28:00 Test Item Value Reference Range Interpretation [...] Specimen moderately (test code = 347) hemolyzed [id number] 07:28:00 Test Item Value Reference Range Interpretation Comments LIPASE (BEAKER) (test code = 749) 31 U/L 8-78 CBC W/PLT COUNT & AUTO [id number] 07:10:00 Test Item Value Reference Range Interpretation [...] (BEAKER) (test code = 2801) U/S, ABDOMINAL, [id number] 23:50:00Abdomen limited area? Add comment if clarification [...] Date/Time: 02/15/2019 23:50:53 URINALYSIS W/ REFLEX URINE [id number] 22:43:00 Test Item Value Reference Range Interpretation [...] SOURCE(BEAKER) (test code = 2795) HEPATIC FUNCTION [id number] 17:03:00 Test Item Value Reference Range Interpretation [...] Specimen slightly (test code = 347) hemolyzed [id number] 16:00:00 Test Item Value Reference Range Interpretation Comments MAGNESIUM (BEAKER) 2.1 mg/dL 1.6-2.6 Specimen slightly (test code = 627) hemolyzed BASIC METABOLIC [id number] 16:00:00 Test Item Value Reference Range Interpretation [...] hemolyz ed (test code = 364) PROTHROMBIN [id number] 15:31:00 Test Item Value Reference Range Interpretation [...] is 2.5-3.5 for patients wiht mechanical heart valves.[id number] 15:31:00 Test Item Value Reference Range Interpretation Comments PARTIAL THROMBOPLASTIN TIME 31.4 seconds 22.5-36.0 (BEAKER) (test code = 760) CBC W/PLT COUNT & AUTO [id number] 15:14:00 Test Item Value Reference Range Interpretation [...] H PERCENT (BEAKER) (test code = 2801) Notes Date/Time Note Provider Source 2022-07-30 20:59:40-00:00 YAIMA GOMEZKelly CONSULTATION GEETHA MINOR FACILITY: [facility] Billing #: [id number] Room: [address] [place] [address] MR #: [id number] : 1975 DATE OF ADMISSION: 07/30/2022 DATE OF CONSULTATION: 07/30/2022 REQUESTING PHYSICIAN: SCALES INSPECTOR: Yaima Gomez MD Consultation is with lower quadrant pain, possib le tubo-ovarian abscesses. HISTORY OF PRESENT ILLNESS: 47-year-old female w ith history of pain, left lower quadrant that began three days ago, was at [facility] and transferred here this morning. Thou ght to have hemorrhagic cyst in the past. Recently, then a C T showed a left tubo-ovarian abscess. Pain better with anti biotics as well as significant leukocytosis. However, she d id report improved pain. No sore problems in the past. Cox s complain of a vaginal discharge. She has no change in bowel habits. No fever or chills. No nausea or vomiting. No urina ry symptoms. No problems with the cast. PAST MEDICAL HISTORY: COPD, hypertension, and se izures. PAST SURGICAL HISTORY: Appendix, tonsillectomy. MEDICATIONS: Per reconciliation sheet. On IV ant ibiotics. ALLERGIES: PER CHART. REVIEW OF SYSTEMS: No current chest pain, shortness of breath, feve r, or chills. PHYSICAL EXAMINATION: GENERAL: Awake, alert, no distress. VITAL SIGNS: Elevated BP noted. Afebrile. Vital signs stable. HEAD AND NECK: Unremarkable. CHEST: Clear. ABDOMEN: Obese. Soft. Tenderness in the left pel saranya area. No peritonitis. No hernias. EXTREMITIES: Unremarkable. NEUROLOGIC: Nonfocal. LABORATORY DATA: Reviewed. IMPRESSION AND PLAN: Abnormal left adnexal per C T scan and clinical picture similar to this. Leukocytosis. Agree with current plan, antibiotics, and OB/GYN PHYSICIAN. We will foll ow with you. LORI/PATTIL /[id number] Electronically signed by: YAIMA GOMEZ at 07-30 17:17:10.000
[2022-10-29] MEDS ORDERED: NA CHLORIDE 0.9% 100 ML ONE ×2 (01:32→01:34)
[2022-10-29] MEDS ORDERED: LEVETIRACETAM 500 MG/5 ML VIAL IV ONE ×2 (01:32→01:34)
[2022-10-29] MEDS ORDERED: RSI MEDICATION KIT IV ONE (01:32)
--- NOTE | 2022-10-29 01:38 | EDPHYS ---
Physician Documentation [facility] Name: Geetha Khan Age: 47 yrs Sex: Female : 1975 Arrival Date: 10/29/2022 Time: 01:04 Bed 4 Private MD: ED Physician Kye De Anda HPI: 10/29 01:57 This 47 yrs old Female presents to ER via Unassigned with complaints of Altered mental rt status. 01:57 Patient presents to the ED with an altered mental status. This reportedly occurred rt about 1 hour prior to arrival and the patient being confused. Did report a mild headache. The patient's sister stated that she was weak on the left side with drooping noted. Patient is not a blood thinners, however, she is not compliant with her seizure or blood pressure medications. No further history could be obtained. Symptoms are severe in severity, no other aggravating alleviating factors. Historical: - Allergies: 01:59 FISH PRODUCT DERIVATIVES; vc1 01:59 mushrooms; vc1 - PMHx: 01:59 Asthma; COPD; Hypertension; Seizures; Thyroid problem; vc1 - PSHx: 01:59 Tonsillectomy; vc1 - Immunization history:: unsure. - Social history:: Smoking status: Patient reports the use of cigarette tobacco products, smokes one-half pack cigarettes per day. - Unable to obtain history due to: altered mental status. ROS: 01:57 Unable to obtain ROS due to altered mental status. rt Exam: 01:55 Head/Face: Normocephalic, atraumatic. ENT: Nares patent. No nasal discharge, no rt septal abnormalities noted. Tympanic membranes are normal and external auditory canals are clear. Oropharynx with no redness, swelling, or masses, exudates, or evidence of obstruction, uvula midline. Mucous membranes moist. Chest/axilla: Normal chest wall appearance and motion. Nontender with no deformity. No lesions are appreciated. Cardiovascular: Regular rate and rhythm with a normal S1 and S2. No gallops, murmurs, or rubs. Normal PMI, no JVD. No pulse deficits. Respiratory: Lungs have equal breath sounds bilaterally, clear to auscultation and percussion. No rales, rhonchi or wheezes noted. No increased work of breathing, no retractions or nasal flaring. Abdomen/GI: Soft, non-tender, with normal bowel sounds. No distension or tympany. No guarding or rebound. No evidence of tenderness throughout. Skin: Warm, dry with normal turgor. Normal color with no rashes, no lesions, and no evidence of cellulitis. MS/ Extremity: Pulses equal, no cyanosis. Neurovascular intact. Full, normal range of motion. :55 Constitutional: The patient appears agitated, in obvious distress. :55 ECG was reviewed by the Attending Physician. :55 Neuro: Confused, ANO x2, hemiplegia noted to the left side, combative, uncooperative.. Vital Signs: 01:06 BP 230 / 139; Pulse 99; Resp 20; Pulse Ox 97% ; Weight 73.03 kg; vc1 01:50 BP 249 / 135; Pulse 91; Pulse Ox 96% ; kd3 02:00 BP 223 / 123; Pulse 92; Pulse Ox 92% ; kd3 02:02 BP 195 / 119; Pulse 90; Pulse Ox 100% on ETT ambu; kd3 02:39 Temp 97.9(Ca); vc1 Mariluz Coma Score: 01:06 Eye Response: to voice(3). Motor Response: localizes pain(5). Verbal Response: kd3 inappropriate words(3). Total: 11. Procedures: 01:57 Intubation: Intubated orally using [place] scope with 7.5 mm ETT. was successful on first rt attempt. Ventilated with Ambu bag. Tube secured with tape measured 23 cm at teeth. Placement verified by CXR, CO2 detector with (+) color change, auscultating bilateral breath sounds, O2 saturation after procedure was 100 %. Patient tolerated well, Initial placement was in the right mainstem, retracted, above pham.. MDM: 01:07 Patient medically screened. rt 01:57 Differential Diagnosis: CVA, dysrhythmia, intracranial hemorrhage. Data reviewed: vital rt signs, nurses notes, lab test result(s), EKG, radiologic studies. Consideration of Admission/Observation Patient requires transfer for higher level of care.. 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 I considered the following discharge prescriptions or medication management in the emergency department Medications were administered in the Emergency Department. See MAR. Independent interpretation of the following test(s) in the Emergency Department CT Scan: My interpretation is Large intracranial hemorrhage seen on my interpretation of the CT scan images. Discussion of test interpretation with radiology: I had a discussion with radiology regarding a test interpretation. Discussed findings of midline shift with the radiologist. Care significantly affected by the following chronic conditions: Hypertension. 10/29 01:08 Order name: Basic Metabolic Panel; Complete Time: 02:44 rt 10/29 01:08 Order name: CBC with Diff; Complete Time: 02:15 rt 10/29 01:08 Order name: Hepatic Function; Complete Time: 02:44 rt 10/29 01:08 Order name: High Sensitivity Troponin; Complete Time: 02:44 rt 10/29 01:08 Order name: Magnesium; Complete Time: 02:44 rt 10/29 01:08 Order name: Protime (+inr); Complete Time: 02:15 rt 10/29 01:08 Order name: Ptt, Activated; Complete Time: 02:15 rt 10/29 01:08 Order name: UDS; Complete Time: 02:44 rt 10/29 01:08 Order name: Acetaminophen; Complete Time: 02:44 rt 10/29 01:08 Order name: ETOH Level; Complete Time: 02:15 rt 10/29 01:08 Order name: Test, Urine; Complete Time: 02:44 rt 10/29 01:08 Order name: Urinalysis w/ reflexes; Complete Time: 02:44 rt 10/29 01:08 Order name: CT Stroke Brain w/o Contrast rt 10/29 01:08 Order name: Stroke CXR 1 View rt 10/29 01:08 Order name: EKG; Complete Time: 01:09 rt 10/29 01:08 Order name: Accucheck; Complete Time: 02:44 rt 10/29 01:08 Order name: Cardiac monitoring; Complete Time: 02:43 rt 10/29 01:08 Order name: IV Saline Lock; Complete Time: 02:43 rt 10/29 01:08 Order name: Labs collected and sent; Complete Time: 02:43 rt 10/29 01:08 Order name: NPO; Complete Time: 02:43 rt 10/29 01:08 Order name: O2 Per Protocol; Complete Time: 02:44 rt 10/29 01:08 Order name: O2 Sat Monitoring; Complete Time: 02:44 rt EC:55 Rate is 71 beats/min. Rhythm is regular, Normal Sinus Rhythm with No ectopy, LVH with rt repolarization abnormality. QRS [place] is Normal. ME interval is normal. QRS interval is normal. QT interval is prolonged at 525 msec. No Q waves. Administered Medications: 01:30 Drug: Keppra IV 1000 mg Route: IV; Rate: calculated rate; Site: left antecubital; kd3 01:30 Drug: Keppra IV 1000 mg Route: IV; Rate: calculated rate; Site: right antecubital; kd3 01:51 Drug: niCARdipine IV 5 mg/hr Route: IV; Rate: calculated rate; Site: left antecubital; kd3 01:58 Follow up: Rate change 7.5 mg/hr kd3 02:04 Follow up: Rate change 15 mg/hr kd3 01:58 Drug: Propofol IV 5 mcg/kg/min Route: IV; Rate: calculated rate; Site: right kd3 antecubital; 02:13 Drug: Labetalol IV 10 mg Route: IV; Rate: calculated rate; Site: left antecubital; vc1 Disposition: 01:57 Critical Care:. rt Disposition Summary: 10/29/22 01:37 Transfer Ordered Transfer Location: [facility] rt Reason: Higher level of care rt Condition: Critical rt Problem: new rt Symptoms: are unchanged rt Accepting Physician: (10/29/22 02:45) kd3 Diagnosis - Intraparenchymal hemorrhage right basal ganglia with midline shift rt - Hypertensive emergency rt Forms: - Medication Reconciliation Form rt - SBAR form rt Critical care time excluding procedures: 01:57 Critical care time: Bedside Care: 30 minutes, Consultation: 10 minutes. Total time: 40 rt minutes Signatures: Dispatcher [employer] Lisbet Griffith RN RN kd3 Syeda Bruce RN RN vc1 Kye De Anda MD MD rt Corrections: (The following items were deleted from the chart) 02:43 01:08 Suicide Screening ([place]) ordered. rt kd3 02:44 01:08 EKG - Nurse/Tech ordered. rt kd3 02:44 01:08 Stroke Swallow Screen ordered. rt kd3 02:45 01:37 rt kd3
[2022-10-29 01:41] LABS: Absolute Lymphocytes (CBC) 1.5 K/uL (0.7-4.9); Lymphocytes % 23.2 % (15.3-44.8); MPV 6.8 fL (7.6-11.3); Platelets 223 thou/uL (152-406); RBC Red Blood Cell Count 4.15 M/uL (3.86-4.86)
[2022-10-29 01:42] LABS: Protime INR 0.96
[2022-10-29] MEDS ORDERED: propofoL 1,000 MG/100 ML VIAL IV ONE (02:02)
[2022-10-29] MEDS ORDERED: LABETALOL 20 MG/4ML SYRINGE IV ONE (02:19)
[2022-10-29 02:30] LABS: Urine Bacteria <20 /HPF (<20); Urine Bilirubin NEGATIVE (Negative); Urine Blood 2+ (Negative); Urine Clarity Turbid (Clear); Urine Color Colorless (Yellow); Urine Glucose NEGATIVE (Negative); Urine Mucus Slight /HPF (None Seen); Urine Protein 2+ (Negative); Urine RBC 21-50 /HPF (None Seen); Urine Urobilinogen Normal (Normal); Urine pH 6.5 (5.0-7.0)
[2022-10-29 02:30] LABS: ALT/SGPT 53 U/L (13-56); AST/SGOT 45 U/L (15-37); Albumin 4.3 g/dL (3.4-5.0); Alkaline Phosphatase 235 U/L (45-117); BUN Blood Urea Nitrogen 13 mg/dL (7-18); Bicarbonate 24 mEq/L (21-32); Bilirubin Direct 0.2 mg/dL (0-0.2); Bilirubin Indirect, Calculated 0.5 mg/dL (0.2-0.8); Bilirubin Total 0.7 mg/dL (0.2-1.0); Glomerular Filtration Rate 45 ml/min (=/>90); Glucose Level 113 mg/dL (74-106); Potassium 3.4 mEq/L (3.5-5.1); Protein, Total 7.5 g/dL (6.4-8.2); Sodium Level 136 mEq/L (136-145)
[2022-10-29 02:31] LABS: Magnesium 2.1 mg/dL (1.6-2.4); Troponin High Sensitivity 37.2 pg/mL (<58.9)
[2022-10-29 02:35] LABS: Barbiturates NEGATIVE (NEGATIVE); Benzodiazepines NEGATIVE (NEGATIVE); Cocaine NEGATIVE (NEGATIVE); METHAMPHETAM POSITIVE (NEGATIVE); Methadone NEGATIVE (NEGATIVE); Opiates NEGATIVE (NEGATIVE); Phencyclidine NEGATIVE (NEGATIVE); THC Cannibis NEGATIVE (NEGATIVE)
--- NOTE | 2022-10-29 02:46 | ER ---
Nurse's Notes [facility] Name: Geetha Khan Age: 47 yrs Sex: Female : 1975 Arrival Date: 10/29/2022 Time: 01:04 Bed 4 Private MD: Diagnosis: Intraparenchymal hemorrhage right basal ganglia with midline shift;Hypertensive emergency Presentation: 10/29 01:06 Chief complaint: EMS states: Her sister called us saying she had numbness in all vc1 extremities and was altered. Coronavirus screen: Client denies travel out of the [place] in the last 14 days. At this time, the client does not indicate any symptoms associated with coronavirus-19. Ebola Screen: Patient negative for fever greater than or equal to 101.5 degrees Fahrenheit, and additional compatible Ebola Virus Disease symptoms Patient denies exposure to infectious person. Patient denies travel to an Ebola-affected area in the 21 days before illness onset. No symptoms or risks identified at this time. Initial Sepsis Screen: Does the patient meet any 2 criteria? No. Patient's initial sepsis screen is negative. Does the patient have a suspected source of infection? No. Patient's initial sepsis screen is negative. Risk Assessment: Do you want to hurt yourself or someone else? Patient reports no desire to harm self or others. Onset of symptoms was October 29, 2022. 01:06 Method Of Arrival: EMS: [facility] vc1 01:06 Acuity: CORRINA 2 vc1 01:06 Care prior to arrival: None. Activity prior to arrival: combative, confused. vc1 Historical: - Allergies: :59 FISH PRODUCT DERIVATIVES; vc1 01:59 mushrooms; vc1 - PMHx: 01:59 Asthma; COPD; Hypertension; Seizures; Thyroid problem; vc1 - PSHx: 01:59 Tonsillectomy; vc1 - Immunization history:: unsure. - Social history:: Smoking status: Patient reports the use of cigarette tobacco products, smokes one-half pack cigarettes per day. - Unable to obtain history due to: altered mental status. Screenin:00 [facility] ED Fall Risk Assessment (Adult) History of falling in the last 3 months, vc1 including since admission No falls in past 3 months (0 pts) Confusion or Disorientation Yes (5 pts) Intoxicated or Sedated No (0 pts) Impaired Gait Yes (1 pt) Mobility Assist Device Used No (0 pt) Altered Elimination No (0 pt) Score/Fall Risk Level 3 or more points = High Risk Oriented to surroundings, Maintained a safe environment, Educated pt \T\ family on fall prevention, incl call for assistance when getting out of bed. Abuse screen: Denies threats or abuse. Nutritional screening: No deficits noted. Tuberculosis screening: No symptoms or risk factors identified. Assessment: 01:06 Neuro: Level of Consciousness is confused, Oriented to person, Facial droop on left. kd3 01:06 Cardiovascular:. Cardiovascular:. Respiratory: Airway is patent Trachea midline kd3 Respiratory effort is even, Respiratory pattern is tachypnea. Derm: Skin is clammy, diaphoretic. 01:06 General: Appears uncomfortable, Behavior is inappropriate for age, restless, kd3 uncooperative. 01:06 General: Pt with left sided facial droop, and is unable to voluntarily move her kd3 extremities on the left side. Pt is confused and uncooperative. Code stroke called at 0059. Pt taken to CT at 0101. . Pain: Complains of pain in headache. 01:42 General: 20 of etomidate and 100 of Rocuronium given during intubation . kd3 02:30 Reassessment: Called to give report to [facility]. Nurse stated receiving nurse is on vc1 break asked if I could call back in 15 minutes. Vital Signs: 01:06 BP 230 / 139; Pulse 99; Resp 20; Pulse Ox 97% ; Weight 73.03 kg; vc1 01:50 BP 249 / 135; Pulse 91; Pulse Ox 96% ; kd3 02:00 BP 223 / 123; Pulse 92; Pulse Ox 92% ; kd3 02:02 BP 195 / 119; Pulse 90; Pulse Ox 100% on ETT ambu; kd3 02:39 Temp 97.9(Ca); vc1 [place] Coma Score: 01:06 Eye Response: to voice(3). Motor Response: localizes pain(5). Verbal Response: kd3 inappropriate words(3). Total: 11. ED Course: 01:06 Patient arrived in ED. vc1 01:06 Patient has correct armband on for positive identification. Bed in low position. kd3 Provided Education on: . Client placed on continuous cardiac and pulse oximetry monitoring. NIBP monitoring applied. telemetry monitor on. 01:07 Kye De Anda MD is Attending Physician. rt 01:13 CT Stroke Brain w/o Contrast In Process Unspecified. EDMS 01:16 Inserted saline lock: 18 gauge in right antecubital area, using aseptic technique. kd3 Blood collected. 01:29 Inserted saline lock: 20 gauge in left antecubital area, using aseptic technique. kd3 01:44 Assisted provider with intubation using 7.5 mm ETT via oral route. ET tube secured at kd3 24cm at the teeth. Set up intubation tray. Intubated by Kye De Anda MD Placement verified by CO2 detector w/ + color change, auscultating bilateral breath sounds, End-tidal CO2 montioring CXR, Patient tolerated well. 01:48 Lisbet Dan, RN is Primary Nurse. kd3 01:58 Stroke CXR 1 View In Process Unspecified. EDMS 01:59 Triage completed. vc1 02:00 Arm band placed on right wrist. vc1 02:04 Solo cath inserted, using sterile technique, 16 Fr., by ED staff, balloon inflated, to kd3 gravity drainage, urine specimen collected. 02:42 Patient transferred, IV remains in place. kd3 Administered Medications: 01:30 Drug: Keppra IV 1000 mg Route: IV; Rate: calculated rate; Site: left antecubital; kd3 01:30 Drug: Keppra IV 1000 mg Route: IV; Rate: calculated rate; Site: right antecubital; kd3 01:51 Drug: niCARdipine IV 5 mg/hr Route: IV; Rate: calculated rate; Site: left antecubital; kd3 01:58 Follow up: Rate change 7.5 mg/hr kd3 02:04 Follow up: Rate change 15 mg/hr kd3 01:58 Drug: Propofol IV 5 mcg/kg/min Route: IV; Rate: calculated rate; Site: right kd3 antecubital; 02:13 Drug: Labetalol IV 10 mg Route: IV; Rate: calculated rate; Site: left antecubital; vc1 Medication: 02:01 VIS not applicable for this client. vc1 Outcome: 01:37 ER care complete, transfer ordered by . rt 02:[address] [facility]. kd3 02:42 Condition: stable 02:42 Discharge instructions given to patient, family, Instructed on the need for transfer, Demonstrated understanding of instructions, follow-up care. 02:45 Patient left the ED. kd3 Signatures: Dispatcher [employer] Lisbet Griffith RN RN kd3 Syeda Bruce RN RN vc1 Kye De Anda MD MD rt Corrections: (The following items were deleted from the chart) 01:59 01:46 Chief complaint: vc1 vc1 02:31 02:26 Neuro: Level of Consciousness is confused, Oriented to person, Facial droop on kd3 left, kd3 02:33 02:32 Keppra IV 1000 mg IV at calculated rate in right antecubital kd3 kd3
[2022-10-29 02:57] VITALS: BP 195/119; O2SAT 100
[2022-10-29 02:58] VITALS: TEMP 97.9
--- NOTE | 2022-10-29 13:10 | EKG ---
Test Date: 2022-10-29 Test Time: 01:25:52 [employer] Mixer: SOLO MEASUREMENT RESULTS: Intervals: Rate: 71 IN: 200 QRSD: 92 QT: 484 QTc: 525 Gerlach: P: 31 IN: 200 QRS: 32 T: 174 INTERPRETIVE STATEMENTS: Normal sinus rhythm Left ventricular hypertrophy with repolarization abnormality Prolonged QT Abnormal ECG Compared to ECG 07/28/2022 01:03:09 Early repolarization now present Atrial abnormality no longer present ST (T wave) deviation no longer present Possible ischemia no longer present Electronically Signed On 10-29-22 13:09:29 CDT by Josse Olson
--- NOTE | 2022-10-29 13:56 | RAD REPORT ---
EXAM DESCRIPTION: RAD - Chest Single View - 10/29/2022 1:56 am CLINICAL HISTORY: The patient is 47 years old and is Female; l sided weakness TECHNIQUE: Frontal view of the chest. COMPARISON: No relevant prior studies available. FINDINGS: Lungs: Mildly prominent interstitial markings. No consolidation. Pleural space: Unremarkable. No pneumothorax. Heart: Unremarkable. Mediastinum: Unremarkable. Bones/joints: Unremarkable. Tubes, lines and devices: Endotracheal tube with tip 2 cm above the pham. IMPRESSION: Mildly prominent interstitial markings. No consolidation. Electronically signed by: Scott Reid MD 10/29/2022 2:07 AM CDT Due to temporary technical issues with the PACS/Fluency reporting system, reports are being signed by the in house radiologist without review as a courtesy to ensure prompt reporting. The interpreting r adiologist is fully responsible for the content of the report.
--- NOTE | 2022-10-29 13:57 | RAD REPORT ---
EXAM DESCRIPTION: CT - Ct Stroke Brain Wo Cont - 10/29/2022 6:54 am ADDENDUM #1 THIS REPORT CONTAINS FINDINGS THAT MAY BE CRITICAL TO PATIENT CARE: The findings were verbally discus sed via telephone conference with Dr. Kye De Anda by Dr. Shaina Ruggiero on 10/29/2022 1:27 AM CD T .The results were acknowledged and understood. Electronically signed by: Rachael Ruggiero MD 10/29/2022 1:32 AM CDT End of Addendum EXAM: CT Head Without Intravenous Contrast CLINICAL HISTORY: The patient is 47 years old and is Female; STROKE ALERT TECHNIQUE: Axial computed tomography images of the head/brain without intravenous contrast. Sagitt al and coronal reformatted images were created and reviewed. This CT exam was performed using one o r more of the following dose reduction techniques: automated exposure control, adjustment of the mA and/or kV according to patient size, and/or use of iterative reconstruction technique. COMPARISON: CT of the head March 02, 2022 FINDINGS: BRAIN: A large 5.8 x 2.9 x 4.7 cm right intraparenchymal hemorrhage with trace amount of edema involving the right basal ganglia is present. There is an associated 0.7 cm leftward midline s hift. There is patchy hypoattenuation of the deep white matter which is non-specific, but most likely owing to chronic small vessel ischemic change in a patient of this age group. No extra-axial fluid collections are noted. VENTRICLES: Unremarkable. No ventriculomegaly. BONES/JOINTS: No acute fracture. SOFT TISSUES: Unremarkable. SINUSES: Unremarkable as visualized. No acute sinusitis. MASTOID AIR CELLS: Unremarkable as visualized. No mastoid effusion. ORBITS: Unremarkable as visualized. IMPRESSION: Large right intraparenchymal hemorrhage which may be secondary to a large hemorrhagic in farct. There is associated 0.7 cm leftward midline shift. Electronically signed by: Rachael Ruggiero MD 10/29/2022 1:22 AM CDT Due to temporary technical issues with the PACS/Fluency reporting system, reports are being signed by the in house radiologist without review as a courtesy to ensure prompt reporting. The interpreting r adiologist is fully responsible for the content of the report.
== END 2022-10-29 02:45 | disposition short-term general hospital (02) ==
LOC: ER 01:04
DX: I61.8 Other nontraumatic intracerebral hemorrhage (principal); I16.1 Hypertensive emergency; R41.82 Altered mental status, unspecified; R20.0 Anesthesia of skin; R51.9 Headache, unspecified; R53.1 Weakness; R29.810 Facial weakness; I10 Essential (primary) hypertension; R56.9 Unspecified convulsions; Z72.0 Tobacco use; Z91.02 Food additives allergy status; Z91.013 Allergy to seafood
CPT/HCPCS: 31500; 36415; 51702; 70450; 71045; 80048; 80076; 80143; 80307; 81001; 81025; 82077; 83735; 84484; 85025; 85610; 85730; 93005; 99285; J1953; J2704

== ENCOUNTER 2022-12-20 | Emergency (ER) | payer OTHER ==
--- OUTSIDE RECORDS SUMMARY | 2022-12-20 00:18 | XMS REPORT | Continuity of Care Document ---
:1975 Author Organization [facility] [place] [facility] t Address [address] [place] [address] [place] [id number] Care Team Providers Name Role Phone PCP, PATIENT DOES NOT HAVE A Primary Care Physician UnavailZAHRA Stoner Attending Clinician Unavailable SUSIE TAI Attending Clinician Unavailable KATHY MAHMOOD Attending Clinician Unavailable MURRAY ELISE Attending Clinician Unavailable Desi Sotelo LVN Attending Clinician Issa ECHEVERRIA, Zohaib Mendoza Attending Clinician [phone] Ryne Yoder MD Attending Clinician Meghana Felix MD Attending Clinician RYNE YODER Attending Clinician Unavailable GOYO HANKINS Attending Clinician Unavailable DANYEL WHITESIDE Attending Clinician Unavailable Vijay Jenkins Attending Clinician Fredis ECHEVERRIA, Popeye In Attending Clinician Fredrick ECHEVERRIA, Aida Barreto Attending Clinician [phone] Yariel ECHEVERRIA, Clifton Negro Attending Clinician [phone] Kristin Shah MD Attending Clinician [phone] KRISTIN SHAH Attending Clinician Unavailable Les Al MD Attending Clinician Nena Waller MD Attending Clinician Leonid Harris MD Attending Clinician CLIFTON DE LUNA Attending Clinician Unavailable DAYRON FOSTER Attending Clinician Unavailable Dayron Foster MD Attending Clinician [phone] ZAIN SALAS Attending Clinician Unavailable AMANDA JOHNSTON Admitting Clinician Unavailable Ryne Yoder MD Admitting Clinician RYNE YODER Admitting Clinician Unavailable AIDA ALCALA Admitting Clinician Unavailable LEONID HARRIS Admitting Clinician Unavailable DAYRON FOSTER Admitting Clinician Unavailable SCOTT MCWILLIAMS Admitting Clinician Unavailable Problems Condition Condition Condition Status Onset Resolution Last Treating Co mments Source Name Details Category Date Date Treatment Clinician Date NSTEMI NSTEMI Disease Active Univers (non-ST (non-ST 11-24 ity of elevated elevated 00:00: [place] myocardial myocardial 00 Me dical infarction infarction Br anch ) ) Tubo-ovari Tubo-ovari Disease Active [facility] an abscess an abscess 5-21 Iqra kes 00:00: Medical 00 [facility] Abdominal Abdominal Disease Recurre [facility] infection infection nce 5-16 [facility] 00:00: Medical 00 [place] Pelvic Pelvic Disease Active [facility] abscess in abscess in 5-15 Iqra kes female female 00:00: Medical 00 [place] Acute Acute Disease Active 2018-[address] [facility] cholecysti cholecysti 2-03 Iqra kes tis tis 00:00: Medical 00 [place] Calculus Calculus Disease Active 2018-03 [facility]02 [facility] gallbladde gallbladde 00:00: Me dical r without r without 00 Cent er cholecysti cholecysti tis tis without without obstructio obstructio n n Transamini Transamini Disease Active 2018-[address] tis tis 2- [facility] 00:[facility] Medical 00 Center Hypertensi Hypertensi Disease Recurre 2018- [facility] on on nce 04-19 [facility] 00:[facility]: [facility] 00 Center Seizure Seizure Disease Recurre 2018- [facility] disorder disorder nce 04-19 [facility] 00:[facility]: Medical 00 Center Anemia Anemia Disease Active 2018-[address] [facility] 2 [facility] 00[facility] Medical 00 Center Thrombocyt Thrombocyt Disease Active 2018- [facility] osis osis 04-19 [facility] 00:[facility]: Medical 00 Center Allergies, Adverse Reactions, Alerts Allergy Allergy Status Severity Reaction(s) Onset Inactive Treating Comm ents Source Name Type Date Date Clinician Cranberr Propensi Active Unknown - Uni vers y ty to See comments 11-26 ity of adverse 00:00: [place] reaction 00 Medical s Branch Grapefru Propensi Active Unknown - Uni vers it ty to See comments 11-26 ity of adverse 00:00: [place] reaction 00 Medical s Branch CRANBERR DRUG Active Unknown-Cmnt 2022-0 Un yoana Y INGREDI 11-26 ity of 00:00: [place] 00 Medical Branch GRAPEFRU DRUG Active Unknown-Cmnt 2022-0 Un yoana IT INGREDI 11-26 ity of 00:00: [place] 00 Medical Branch Aspirin Propensi Active Anaphylaxis 2022-0 Throat Un yoana ty to 11-24 swells; ity of adverse 00:00: breaks [place] reaction 00 out Medical s Branch Fish Propensi Active Unknown - 2022-0 Unive rs Containi ty to See comments 11-24 it y of ng adverse 00:00: [place] Products reaction 00 Medica l s Branch Mushroom Propensi Active Unknown - 2022-0 Uni vers ty to See comments 11-24 ity of adverse 00:00: [place] reaction 00 Medical s Branch ASPIRIN DRUG Active High Anaphylaxis 2022-0 Univ ers INGREDI 11-24 ity of 00:00: [place] 00 Medical Branch FISH Drug Active Unknown-Cmnt 2022-0 Univ ers CONTAINI Class 11-24 ity of NG 00:00: [place] PRODUCTS 00 Medical Branch MUSHROOM DRUG Active Unknown-Cmnt 2022-0 Un yoana INGREDI 11-24 ity of 00:00: [place] 00 Medical Branch Aspirin Drug Active Anaphylaxis 2022-[address] [facility] [address] Allergy 5-15 [facility] 00:00: Medical 00 Center Mushroom Drug Active Anaphylaxis 2022-[address] [facility] Allergy 5-15 [facility] 00:00: Medical 00 Center Shellfis Drug Active Anaphylaxis 2022-[address] [facility] h Allergy 5-15 [facility] Containi 00:00: Medical ng 00 Center Products ASPIRIN Allergy Active High Anaphylaxis 2022-0 SLE H 5-15 00:00: 00 MUSHROOM Allergy Active High Anaphylaxis 2022-0 SL EH 5-15 00:00: 00 SHELLFIS Allergy Active High Anaphylaxis 2022-0 SL EH H 5-15 CONTAINI 00:00: NG 00 PRODUCTS FISH Allergy Active High Swelling 2019- SLSL CONTAINI 2-01 NG 00:00: PRODUCTS 00 Cranberr Drug Active Anaphylaxis, 2019-[address] y Allergy Hives, 2-01 [facility] Itching 00:00: Medical 00 Center Fish Drug Active Swelling 2018- [facility] Containi Allergy 2-01 [facility] ng 00:00: Medical Products 00 Center CRANBERR Allergy Active High Anaphylaxis 2018- SL EH Y 2- 00:00: 00 Social History Social Habit Start Date Stop Date Quantity Comments Source Gender identity [facility]it y of [facility] Sexual orientation Univer sity of [facility] History SDOH [facility] Alcohol Std Drinks Medica l Center History SDOH [facility] Alcohol Comment Medical C enter History SDOH [facility] Transport Non-Med Medical Center History of Social 2022-11-26 2022-11-26 Univers ity of function 00:00:00 00:00:00 [facility] Cigarettes smoked 2022-11-24 2022-11-24 Univers ity of current (pack per 00:00:00 00:00:00 [facility] ) - Reported Branch Cigarette 2022-11-24 2022-11-24 University of pack-years 00:00:00 00:00:00 [facility] Tobacco use and 2022-11-24 2022-11-24 Smokeless Universit y of exposure 00:00:00 00:00:00 tobacco non-user [facility] dical Branch Alcohol intake 2022-11-24 2022-11-24 Ex-drinker University 00:00:00 00:00:00 (finding) [facility] History of tobacco 2022-11-03 Passive smoker Un iversity of use 00:00:00 [facility] Branch History [facility] 2022-08-06 2022-08-[address] [facility] Transport Med 00:00:00 00:00:[address] History [facility] 2022-08-06 2022-08-[address] [facility] Housing Unable to 00:00:00 00:00:00 Medical Center Pay History [facility] 2022-08-06 2022-08-[address] [facility] Housing Places 00:00:00 00:00:00 Medical Ce nter Lived History [facility] 2022-08-06 2022-08-[address] [facility] Housing Homeless 00:00:00 00:00:00 Medical Center Last Year History [facility] 2019-02-15 2019-02-[address] [facility] Alcohol Binge 00:00:00 00:00:[address] History [facility] 2019-02-15 2019-02-[address] [facility] Alcohol Frequency 00:00:00 00:00:00 Medical Center Sex [birth year] Universit y of 00:00:00 00:00:00 [facility] Smoking Status Start Date Stop Date Source Ex-smoker 2022-11-24 00:00:00 2022-11-24 [place] o f [place] 00:00:00 [facility] Branch Occasional tobacco 2022-07-30 00:00:00 [facility] smoker Center Medications Ordered Filled Start Stop Current Ordering Indication Dosage Frequency Signature Comments Components Source Medication Medication Date Date Medication? Clinician (SIG) Name Name [facility] Yes 20meq 20 mEq, Univers (KLOR-CON 9-14 Oral, ity of M20) tablet 14:00: DAILY, [facility] 20 mEq 00 First dose Medical on [place] Branch 11/29/22 at 0900, [facility] QUEtiapine Yes 25mg Take 1 Unive rs 25 mg 9-13 tablet by ity of tablet 21:49: mouth in [place] [id number] the Medical morning Branch and 1 tablet in the evening. furosemide Yes 20mg Take 1 Unive rs (LASIX) 20 9-13 tablet by ity of mg tablet 21:49: mouth in [facility] 46 the Medical morning. Branch QUEtiapine Yes 25mg Take 1 Unive rs 25 mg 9-13 tablet by ity of tablet 21:49: mouth in [place] 46 the Medical morning Branch and 1 tablet in the evening. furosemide 2022-0 Yes 20mg Take 1 Unive rs (LASIX) 20 11-28 tablet by ity of mg tablet 21:49: mouth in [facility] s 46 the Medical morning. Branch albuterol 2022-2022- No 2{puff} 2 Puff, U nivers (VENTOLIN) 11-28 Inhalation it y of inhaler 2 20:59: 21:00 [place], 1 [place] P[place] :00 dose, On Medical Wed Branch 11/28/22 at 1600, Routine magnesium 2022- No 4g 4 g, IV Univ ers sulfate in 11-28 Piggyback, it y of water 4 15:45: 18:49 at 25 [place] gram/50 mL 00 :00 mL/hr Medical (8 %) IV Administer Branc h Piggyback 4 over 120 g Minutes, ONCE, 1 dose, On Sat11/28/22 at 1045, Routine atorvastati 2022-2022- No 40mg Take 1 Uni vers n 40 mg 11-28 tablet by ity of tablet 10:17: 00:00 mouth at [place] 14 :00 bedtime. Medical Branch amLODIPine 2022-2022- No 10mg Take 1 Univ ers 10 mg 11-28 tablet by ity of tablet 10:12: 00:00 mouth in [place] 07 :00 the Medical morning. Branch NIFEdipine 2022-0 2022- No 60mg Take 1 Univ ers ER 60 mg 11-28 tablet by ity o f tablet 10:12: 00:00 mouth in [place] 04 :00 the Medical morning. Branch metoprolol 2022-0 2022- No 50mg Take 1 Univ ers tartrate 11-28 tablet by ity o f (LOPRESSOR) 10:12: 00:00 [place] in [place] 50 mg 04 :00 the Medical tablet morning Branch and 1 tablet in the evening. amLODIPine 2022-0 Yes [id number] 2.5mg Take 1 Univers 2.5 mg 11-28 tablet by ity of tablet 00:00: mouth in [place] 00 the Medical morning. Branch metoprolol 2022-0 Yes [id number] 12.5mg Take 0.5 Univers tartrate 25 9-13 tablets by it y of mg tablet 00:00: [place] 00 the Medical morning Branch and 0.5 tablets in the evening. atorvastati 0 Yes [id number] 40mg Take 1 Univers n 40 mg 9-13 tablet by ity of tablet 00:00: mouth at [place] 00 bedtime. Medical Branch amLODIPine 0 Yes [id number] 2.5mg Take 1 Univers 2.5 mg 9-13 tablet by ity of tablet 00:00: mouth in [place] 00 the Medical morning. Branch metoprolol 0 Yes [id number] 12.5mg Take 0.5 Univers tartrate 25 9-13 tablets by it y of mg tablet 00:00: [place] 00 the Medical morning Branch and 0.5 tablets in the evening. atorvastati 0 Yes [id number] 40mg Take 1 Univers n 40 mg 9-13 tablet by ity of tablet 00:00: mouth at [place] 00 bedtime. Medical Branch HYDROcodone 0 Yes 1{tbl} 1 tablet, Univers -acetaminop 11-27 Oral, ity of hen (NORCO 21:16: Q6HPRN, [place] 5) 5-325 mg 22 Starting Medi wale tablet 1 on [facility] tablet 11/27/22 at 1616, Until Discontinu ed, Routine, Pain (scale 4-6) acetaminoph 0 Yes 650mg 650 mg, Un yoana en 11-27 Oral, ity of (TYLENOL) 21:12: Q6HPRN, [place] tablet 650 39 Starting Medic al mg on e Branch 11/27/22 at 1612, Until Discontinu ed, Routine, Pain (scale 1-3) nitroglycer 2022- No [id number] .8mg 0.8 mg, Univers in 11-27 Sublingual ity of (NITROSTAT) 20:15: 19:15 , ONCE, 1 [place] sublingual 00 :00 dose, On Medic al tablet 0.8 [facility] Branch mg 11/27/22 at 1515, KASSIDY iopamidol 0 2022- No [id number] 80mL 80 mL, U nivers (ISOVUE 11-27 Intravenou ity o f 370-500 mL) 20:15: 19:25 s, ONCE, 1 [place] injection 00 :00 dose, On Medica l 80 mL [facility] Branch 11/27/22 at 1515, Routine acetaminoph 2022- No 1{tbl} 1 tablet, Univers en-codeine 11-27 Oral, ity of (TYLENOL 11:15: 10:29 ONCE, 1 [place] #3) 300-30 00 :00 dose, On Medic al mg tablet 1 [facility] tablet 11/27/22 at 0615, Routine acetaminoph 2022-2022- No 1{tbl} 1 tablet, Univers en-codeine 11-26 Oral, ity of (TYLENOL 18:45: 18:50 ONCE, 1 [place] #3) 300-30 00 :00 dose, On Medic al mg tablet 1 [facility] tablet 11/26/22 at 1345, Routine metoprolol Yes 12.5mg 12.5 mg, U nivers tartrate 11-26 Oral, BID, ity o f (LOPRESSOR) 13:00: First dose [place] tablet 12.5 00 on Mon Medica l mg 11/26/22 at Branch 0800, Until Discontinu ed, Routine perflutren 2022- No [id number] 3mL 3 mL, IV Univers protein-A 11-25 Push, ity of microsphr 15:00: 15:00 ONCE, 1 [place] (OPTISON) 00 :00 dose, On Medica l injection 3 [place] Branch mL 11/25/22 at 1000, Routine pantoprazol Yes 40mg 40 mg, Univ ers e 11-25 Oral, ity of (PROTONIX) 14:00: DAILY, [place] EC tablet 00 First dose Medi wale 40 mg on [place] Branch 11/25/22 at 0900, Until Discontinu ed, Routine clopidogreL 2022- No 75mg 75 mg, Uni vers (PLAVIX) 75 11-25 Oral, ity of mg tablet 14:00: 14:47 DAILY, [place] 75 mg 00 :08 First dose Medical on [place] Branch 11/25/22 at 0900, Until Discontinu ed, Routine magnesium 2023-0 2023- No 4g 4 g, IV Univ ers sulfate in 11-25 Piggyback, it y of water 4 04:15: 07:19 at 25 [place] gram/50 mL 00 :00 mL/hr Medical (8 %) IV Administer Branc h Piggyback 4 over 120 g Minutes, ONCE, 1 dose, On [place] 11/24/22 at 2315, Routine atorvastati 2022-0 Yes 40mg 40 mg, Univ ers n (LIPITOR) 11-25 Oral, QHS, it y of tablet 40 02:00: [place] mg 00 on [place] Medical 11/24/22 at Branch 2100, Until Discontinu ed, Routine lactated 3-0 2023- No 500mL at 999 Unive rs ringers IV 11-24 mL/hr, 500 it y of infusion 23:00: 12:43 mL, [place] 500 mL 00 :00 Intravenou Medical s, ONCE, 1 Branch dose, On [place] 11/24/22 at 1800, Routine lactated 3-0 2023- No 500mL at 125 Unive rs ringers IV 11-2411 mL/hr, 500 it y of infusion 21:11: 12:43 mL, [place] 500 mL 00 :00 Intravenou Medical s, ONCE, 1 Branch dose, On 11/24/22 at 1615, Routine ipratropium 2022-0 Yes 3mL 3 mL, Unive rs -albuteroL 11-24 Inhalation ity of (DUONEB) 19:48: , QIDPRN, [place] 0.5 mg-3 04 Starting Medical mg(2.5 mg on Sat Branch base)/3 mL 11/24/22 at nebulizer 1448, solution 3 Until mL Discontinu ed, Routine, Wheezing lactated 3-0 2023- No 500mL at 999 Unive rs ringers IV 11-2411 mL/hr, 500 it y of infusion 17:45: 12:43 mL, [place] 500 mL 00 :00 Intravenou Medical s, ONCE, 1 Branch dose, On 11/24/22 at 1245, Routine nitroglycer 3-0 Yes .4mg 0.4 mg, Uni vers in 11-24 Sublingual ity of (NITROSTAT) 17:23: , Q5MIN [place] as sublingual 08 PRN, Medical tablet 0.4 Starting Branc h mg on 11/24/22 at 1223, Until Discontinu ed, Routine, Chest pain heparin 2022-0 2022- No 0U/h 0-2,750 Univer s 25,000 11-24 09-11 Units/hr ity of Units/250 16:21: 00:06 (0-27.5 [place] mL 16 :36 mL/hr), IV Medical (Premixed Infusion, Branc h Bag) in D5W TITRATE, Parameters in Admin. Instr., Starting on 11/24/22 at 1121
In itiate dosing:&nb sp; & nbsp;&nbsp ; -Patient 83 kg or under: Patient actual weight not available. (Calculate d dose at 12 units/kg/h r) &n bsp; &nbs p; -Patient over 83 k,000 units/hr&n bsp;DO NOT Exceed the MAXIMUM 1,000 units/hr for initiation of heparin drip.&nbsp ; CAU TION - If LMWH given in ER, AVOID bolus and start next dose/drip 12 hrs after ER dosage.&nb sp; M ust program rate using programmab le infusion pump.&nbsp ; Evelyn ck with the ordering provider first prior to any administra tion should the patient be on existing/a dditional anticoagul ant therapy. Rang e, Dosing and Testing: &nbs p;[facility], AND [facility] ONLY &nbs p; - aPTT < 35: & nbsp;Bolus 5000 units, increase rate 300 units/hr&n bsp; - aPTT 35-44:&nbs p; Jed justin 3000 units, increase rate 200 units/hr&n bsp; - aPTT 45-54:&nbs p; In crease rate 100 units/hr&n bsp; - aPTT 55-85:&nbs p; NO CHANGE&nbs p; - aPTT 86-95:&nbs p;&nbs p;Decrease rate 100 units/hr&n bsp; - aPTT 96-120:&nb sp; H old 30 minutes, decrease rate 150 units/hr&n bsp; - aPTT > 120: Hold 60 minutes, decrease rate 200 units/hr&n bsp; Check aPTT 6 hours after initiation , then Q6H after every change, aPTT Q12H once therapeuti c levels are reached.&n bsp; &nbs p; __ &n bsp;FOR [facility] ONLY - aPTT < 40: & nbsp;Bolus 5000 units, increase rate 300 units/hr&n bsp; - aPTT 40-49:&nbs p; Jed justin 3000 units, increase rate 200 units/hr&n bsp; - aPTT 50-59:&nbs p; In crease rate 100 units/hr&n bsp; - aPTT 60-85:&nbs p; NO CHANGE&nbs p; - aPTT 86-95:&nbs p; De crease rate 100 units/hr&n bsp; - aPTT 96-120:&am p;nbsp;&nb sp;Hold 30 minutes, decrease rate 150 units/hr&n bsp; - aPTT > 120: Hold 60 minutes, decrease rate 200 units/hr&n bsp; Check aPTT 6 hours after initiation , then Q6H after every change, aPTT Q12H once therapeuti c levels are reached.&n bsp; DO NOT ADJUST INITIAL BOLUS OR INITIAL INFUSION RATE.
furosemide 2023-0 Yes 20mg QD Take 1 [facility] (LASIX) 20 -28 tablet (20 Reyna es MG tablet 00:00: mg total) Med ical 00 by mouth Center in the morning. NIFEdipine 3-0 Yes 60mg QD Take 1 [facility] (PROCARDIA- 5-27 tablet (60 Iqra kes XL) 60 MG 00:00: mg total) Med ical (OSM) 24 hr 00 by mouth Cent er tablet in the morning. metoprolol 2022-0 Yes 50mg Q.5D Take 1 [facility] t tartrate 5-27 tablet (50 [facility] (LOPRESSOR) 00:00: mg total) M edical 50 MG 00 by mouth Center tablet in the morning and 1 tablet (50 mg total) before bedtime. atorvastati 2022-0 2023- No 40mg QD Take [address] n (LIPITOR) 08-11 05-26 tablet (40 L ukes 40 MG 00:00: 23:59 mg total) Medica l tablet 00 :00 by mouth Center nightly. doxycycline 3-0 2023- No 100mg Q.5D Take [address] (MONODOX) 08-11 06-03 capsule [facility] 100 MG 00:00: 23:59 (100 mg Medical capsule 00 :00 total) by Center mouth in the morning and 1 capsule (100 mg total) before bedtime. Do all this for 7 days. metroNIDAZO 3-0 202- No 500mg Q.5D Take [address] [facility] (FLAGYL) 08-11 06-03 tablet [facility] 500 MG 00:00: 23:59 (500 mg Medical tablet 00 :00 total) by Center mouth in the morning and 1 tablet (500 mg total) before bedtime. Do all this for 7 days. . NIFEdipine 3-0 2023- No 60mg QD Take [address] (PROCARDIA- 5-20 05-27 tablet (60 L ukes XL) 60 MG 00:00: 00:00 mg total) Me dical (OSM) 24 hr 00 :00 by mouth Cent er tablet in the morning. atorvastati 3-0 2023- No 40mg QD Take [address] n (LIPITOR) 5-19 05-27 tablet (40 L ukes 40 MG 00:00: 00:00 mg total) Medica l tablet 00 :00 by mouth Center nightly. metroNIDAZO No 500mg Q.[id number] Take [address] [facility] (FLAGYL) 08-03 [id number] tablet [facility]ukes 500 MG 00:00: 00:00 3D [...] capsule (100 mg total) before bedtime. divalproex epilepsy 125mg QD Take [address] (DEPAKOTE) 5-15 05-15 mg by [facility]ukes 125 MG EC 14:52: 00:00 mouth Medica l tablet 09 :00 daily. [place] divalproex 2018-03 Yes epilepsy 125mg QD Take [address] (DEPAKOTE) 2-04 mg by Lukes 125 MG EC 10:36: mouth Medical tablet 04 daily. [place] divalproex 2018-03 Yes epilepsy 125mg QD Take [address] (DEPAKOTE) 2-04 mg by [facility]ukes 125 MG EC 10:36: mouth Medical tablet 04 daily. [place] divalproex 2018-03 Yes epilepsy 125mg QD Take [address] (DEPAKOTE) 2-04 mg by [facility]ukes 125 MG EC 10:36: mouth Medical tablet 04 daily. Adell famotidine 2018-03 Yes 1{tbl} Take 1 [facility] [...] 00 every 12 Center (twelve) hours. famotidine 2018-2022- No 1{tbl} Take [address] (PEPCID) 20 04-16 05-15 tablet by Iqra kes MG tablet 00:00: 00:00 mouth Medica l 00 :00 every 12 Center (twelve) hours. Vital Signs Vital Name Observation Time Observation Value Comments Source Respiratory rate 2022-11-29 01:59:00 18 /min [facility] Oxygen saturation in 2022-11-29 01:59:00 93 /min [facility] Arterial blood by [facility] Pulse oximetry Branch Systolic blood 2022-11-29 01:23:00 126 mm[Hg] [facility] Diastolic blood 2022-11-29 01:23:00 75 mm[Hg] [facility] Heart rate 2022-11-29 01:23:00 72 /min [facility] Body temperature 2022-11-29 01:23:00 36.94 Nahomi [facility] Body weight 2022-11-28 05:16:00 70.421 kg [facility] BMI 2022-11-28 05:16:00 28.40 kg/m2 [facility] Body height 2022-11-24 16:52:00 157.5 cm [facility] WEIGHT 2022-11-12 07:05:00 74.6 kg WEIGHT 2022-11-11 07:10:00 74.6 kg WEIGHT 2022-11-10 09:00:00 74.6 kg WEIGHT 2022-10-29 03:30:00 74.6 kg WEIGHT 2022-11-12 07:05:00 74.6 kg WEIGHT 2022-11-11 07:10:00 74.6 kg WEIGHT 2022-11-10 09:00:00 74.6 kg WEIGHT 2022-10-29 03:30:00 74.6 kg HEIGHT 2022-08-05 19:35:00 157.5 cm WEIGHT 2022-08-05 19:35:00 58.968 kg HEIGHT 2022-08-05 19:35:00 157.5 cm WEIGHT 2022-08-05 19:35:00 58.968 kg WEIGHT 2022-07-30 14:32:00 58.968 kg HEIGHT 2022-07-30 14:32:00 157.5 cm WEIGHT 2022-07-30 14:32:00 58.968 kg HEIGHT 2022-07-30 14:32:00 157.5 cm Heart rate 2022-08-11 12:33:33 76 /min [facility] Respiratory rate 2022-08-11 12:33:33 18 /min [facility] Oxygen saturation in 2022-08-11 12:33:33 97 /min [facility] Arterial blood by Medical Ce nter Pulse oximetry Body temperature 2022-08-11 12:33:11 36.56 Nahomi [facility] Systolic blood 2022-08-11 12:32:45 129 mm[Hg] [facility] Diastolic blood 2022-08-11 12:32:45 80 mm[Hg] [facility] Body height 2022-08-05 19:35:00 157.5 cm [facility] Body weight 2022-08-05 19:35:00 58.968 kg [facility] BMI 2022-08-05 19:35:00 23.78 kg/m2 [facility] Procedures Procedure Date / Time Performing Clinician Source Performed MAGNESIUM 2022-11-28 09:22:00 Casi Maddox [facility] BASIC METABOLIC PANEL 2022-11-28 09:22:00 Casi Maddox [facility] (NA, K, CL, CO2, Medical Branch GLUCOSE, BUN, CREATININE, CA) CBC WITH DIFF 2022-11-28 09:22:00 Casi Maddox [facility] CT ANGIOGRAPHY 2022-11-27 19:24:21 Tori Hanna [facility] CORONARIES WITH CARDIAC [facility] Branch CALCIUM SCORE CT HEAD WO CONTRAST 2022-11-27 17:24:05 Milagros Choe [facility] CBC WITHOUT DIFF 2022-11-27 09:15:00 Joel Willis [facility] MAGNESIUM 2022-11-26 09:21:00 [facility] 2022-11-26 09:21:00 Joel Willis [facility] ([id number]) (ALB,T.PRO,BILI Medical Branch T,BU/BC,ALT,AST,ALK PHOS) BASIC METABOLIC PANEL 2022-11-26 09:21:00 Paul [facility] (NA, K, CL, CO2, Medical Branch GLUCOSE, BUN, CREATININE, CA) CBC WITH DIFF 2022-11-26 09:21:00 Paul, [facility] ACTIVATED PARTIAL 2022-11-25 22:48:00 Lazaro [facility] EKG-12 LEAD 2022-11-25 17:52[facility] 2022-11-25 17:51:00 Philip [facility] ROUTINE & RHYTHM 2022-11-25 17:39:36 Joel [facility] STRIP [facility] ACTIVATED PARTIAL 2022-11-25 15:42:00 Joel Willis [facility] TRANSTHORACIC ECHO (TTE) 2022-11-25 14:57:34 Joel Willis [facility] COMPLETE W/ CONTRAST Medical [facility] MAGNESIUM 2022-11-25 09:20:00 Lazaro [facility] BASIC METABOLIC PANEL 2022-11-25 09:20:00 Joel Willis [facility] (NA, K, CL, CO2, Medical Branch GLUCOSE, BUN, CREATININE, CA) URINE DRUG (IMMUNOASSAY) 2022-11-25 07:32:00 Joel Willis [facility] - COMPREHENSIVE DRUG Medical Bra [facility] SCREEN GC & CHLAMYDIA AMPLIFIED 2022-11-25 07:32:00 Joel Willis [facility] ASSAY [facility] URINE DRUG (LCMSMS) - 2022-11-25 07:32:00 Joel Willis [facility] SYNTHETIC OPIATES PANEL Medical Branch CBC WITHOUT DIFF 2022-11-25 07:31:00 Joel Willis [facility] ACTIVATED PARTIAL 2022-11-25 07:31:00 Lazaro [facility] URINALYSIS 2022-11-25 07:31:00 Lazaro [facility] MAGNESIUM 2022-11-25 01:31:00 [facility] BASIC METABOLIC PANEL 2022-11-25 01:31:00 [facility] (NA, K, CL, CO2, Medical Branch GLUCOSE, BUN, CREATININE, CA) ACTIVATED PARTIAL 2022-11-25 01:31:00 Lazaro [facility] TROPONIN I 2022-11-24 23:01:00 Lazaro [facility] BLOOD CULTURE SCREEN 2022-11-24 22:57:00 Lazaro [facility] XR CHEST 1 VW 2022-11-24 21:30:59 Lazaro [facility] US ABDOMEN LIMITED 2022-11-24 21:30:31 Joel Willis [facility] XR CHEST 1 VW 2022-11-24 20:37:00 Lazaro [facility] CT HEAD WO CONTRAST 2022-11-24 18:42:54 [facility] ACTIVATED PARTIAL 2022-11-24 17:43:00 Lazaro [facility] CBC WITH DIFF 2022-11-24 16:39:00 Lazaro [facility] MRSA / MSSA SCREEN BY 2022-11-24 16:39:00 [facility]aro [facility] 2022-11-24 16:34:00 Lazaro [facility] THYROID STIMULATING 2022-11-24 16:34:00 Lazaro [facility] HORMONE [facility] HEPATIC FUNCTION PANEL 2022-11-24 16:34:00 Joel Willis [facility] ([id number]) (ALB,T.PRO,BILI Medical Branch T,BU/BC,ALT,AST,ALK PHOS) BASIC METABOLIC PANEL 2022-11-24 16:34:00 Lazaro [facility] (NA, K, CL, CO2, Medical Branch GLUCOSE, BUN, CREATININE, CA) LIPID PANEL 2022-11-24 16:34:00 Lazaro [facility] ([id number])(TOTAL Medical Branch CHOLESTEROL, TRIGLYCERIDES, HDL) GLYCOSYLATED HEMOGLOBIN 2022-11-24 16:34:00 [facility] (A1C) Medical Sylvester PROTHROMBIN TIME / INR 2022-11-24 16:34:00 Joel Willis [facility] HEPATITIS B SURFACE 2022-11-24 16:34:00 Lazaro [facility] ANTIBODY Medical Branch HEPATITIS B SURFACE 2022-11-24 16:34:00 Lazaro [facility] ANTIGEN [facility] HCV ANTIBODY 2022-11-24 16:34:00 [facility] A VIRUS 2022-11-24 16:34:00 [facility]TIB[facility] IGM [facility] N-TERMINAL PRO-BNP 2022-11-24 16:34:00 Lazaro [facility] HIV 1/2 AG-AB WITH 2022-11-24 16:34:00 Lazaro [facility] REFLEX [facility] EKG-12 LEAD 2022-11-24 16:22:20 [facility] BASIC METABOLIC PANEL 2022-08-11 04:41:00 [facility] MAGNESIUM 2022-08-11 04:41:00 Kristin Shah [facility] CALCIUM, IONIZED 2022-08-11 04:41:00 [facility] PHOSPHORUS 2022-08-11 04:41:00 [facility] CBC W/PLT COUNT & AUTO 2022-08-11 04:41:00 [facility] DIFFERENTIAL Adell CBC W/PLT COUNT & AUTO 2022-08-11 04:41:00 [facility] BASIC METABOLIC PANEL 2022-08-10 16:09:00 [facility] SODIUM, RANDOM URINE 2022-08-10 09:33:00 [facility] UREA NITROGEN, RANDOM 2022-08-10 09:33:00 [facility] ED URINE [facility] CREATININE, RANDOM URINE 2022-08-10 09:33:00 [facility] OSMOLALITY, URINE 2022-08-10 09:33:00 [facility] TSH/FREE T4 IF INDICATED 2022-08-10 09:33:00 [facility] CORTISOL 2022-08-10 09:33:00 [facility] OSMOLALITY, SERUM 2022-08-10 09:33:00 [facility] T4, FREE 2022-08-10 09:33:00 [facility] CBC (HEMOGRAM ONLY) 2022-08-10 05:06:00 [facility] BASIC METABOLIC PANEL 2022-08-10 05:06:00 [facility] MAGNESIUM 2022-08-10 05:06:00 [facility] CBC (HEMOGRAM ONLY) 2022-08-09 03:38:00 [facility] BASIC METABOLIC PANEL 2022-08-09 03:38:00 [facility] MAGNESIUM 2022-08-09 03:38:00 [facility] CBC (HEMOGRAM ONLY) 2022-08-08 04:25:00 [facility] BASIC METABOLIC PANEL 2022-08-08 04:25:00 [facility] B-TYPE NATRIURETIC 2022-08-08 04:25:00 [facility] FACTOR (BNP) [facility] STD PANEL - CT/GC RNA 2022-08-07 16:52:00 Higinio [facility] FUNGUS CULTURE + SMEAR 2022-08-07 10:22:00 Aida Alcala I [facility] ANAEROBIC CULTURE 2022-08-07 10:22:00 [facility] WOUND CULTURE + GRAM 2022-08-07 10:22:00 [facility] STAIN [facility] RADIOLOGIC GUIDANCE & 2022-08-07 10:20:00 [facility]/SPEC [facility] BASIC METABOLIC PANEL 2022-08-07 03:42:00 [facility] CBC (HEMOGRAM ONLY) 2022-08-07 03:41:00 [facility] ABDOMEN/PELVIS WITH 2022-08-06 00:22:00 Aida Alcala I [facility] IV CONTRAST [facility] SCREEN, URINE 2022-08-05 21:06:00 Ronal Duran [facility] CBC W/PLT COUNT & AUTO 2022-08-05 20:40:00 Aida Alcala [facility] DIFFERENTIAL [facility] BASIC METABOLIC PANEL 2022-08-05 20:40:00 [facility] PROT[facility]/INR 2022-08-05 20:40:00 [facility] TYPE AND SCREEN, 2022-08-05 20:40:00 Aida Alcala [facility] AUTOMATED [facility] CBC W/PLT COUNT & AUTO 2022-08-05 20:40:00 Aiad Alcala I [facility] DIFFERENTIAL [facility] (CELLAVISION MANUAL 2022-08-05 20:40:00 [facility] DIFF) [facility] TRANSTHORACIC ECHO FOR 2022-08-03 13:59:39 Unknown, Hl7 [facility] BASIC METABOLIC PANEL 2022-08-03 04:31:00 [facility] CBC (HEMOGRAM ONLY) 2022-08-03 04:31:00 [facility] CBC W/PLT COUNT & AUTO 2022-08-02 13:09:00 [facility] BASIC METABOLIC PANEL 2022-08-02 13:09:00 [facility] CBC W/PLT COUNT & AUTO 2022-08-02 13:09:00 [facility] (CELLAVISION MANUAL 2022-08-02 13:09:00 [facility], [place] Adell NM MYOCARDIAL PERFUSION 2022-08-01 13:31:00 [facility] SPECT, PHARM Azzam Adell TREADMILL 2022-08-01 11:39:56 Unknown, Hl7 [facility](NON-NUCLEAR Center TREADMILL) ECG 12-LEAD 2022-08-01 10:14:26 Unknown, 7 [facility] ECG 12-LEAD 2022-08-01 10:14:26 Unknown, 7 [facility] ECG 12-LEAD 2022-08-01 10:13:38 Unknown, 7 [facility] ECG 12-LEAD 2022-08-01 10:13:38 Unknown, 7 [facility] CBC W/PLT COUNT & AUTO 2022-08-01 04:47:00 Leonid Harris [facility] BASIC METABOLIC PANEL 2022-08-01 04:47:00 Leonid Harris [facility] MAGNESIUM 2022-08-01 04:47:00 Leonid Harris [facility] PHOSPHORUS 2022-08-01 04:47:00 Leonid Harris [facility] HEMOGLOBIN A1C 2022-08-01 04:47:00 [facility] PT/APTT 2022-08-01 04:47:00 [facility] HCG, QUANTITATIVE, 2022-08-01 04:47:00 [facility] Center TYPE AND SCREEN, 2022-08-01 04:47:00 Leonid Harris [facility] AUTOMATED Center CBC W/PLT COUNT & AUTO 2022-08-01 04:47:00 Leonid Harrisssa [facility] DIFFERENTIAL Center (CELLAVISION MANUAL 2022-08-01 04:47:00 [facility] DIFF) Center 2D ECHO W/ DOPPLER 2022-07-31 15:20:[address] [facility] (CW/PW/COLOR) [facility] ECG 12-LEAD 2022-07-31 15:01:36 [facility] ECG 12-LEAD 2022-07-31 15:01:36 Unknown, Hl7 [facility] ENDOVAGINAL EV 2022-07-31 12:52:00 [facility] US PELVIS 2022-07-31 12:52:00 [facility] US DOPPLER 2022-07-31 12:52:00 [facility] BASIC METABOLIC PANEL 2022-07-31 03:09:00 [facility]ey HospitalDewayne [facility] MAGNESIUM 2022-07-31 03:09:00 [facility] HospitalDewayne vazquez [facility] PHOSPHORUS 2022-07-31 03:09:00 [facility] CBC W/PLT COUNT & AUTO 2022-07-31 03:09:00 [facility] LIPID PANEL 2022-07-31 03:09:00 [facility] CBC W/PLT COUNT & AUTO 2022-07-31 03:09:00 Dewayne Reilly [facility] Medical DIFFERENTIAL An Center XR CHEST 1 VIEW PORTABLE 2022-07-30 16:42:00 Dewayne Reilly P is [facility] Medical / BEDSIDE An Center CBC W/PLT COUNT & AUTO 2022-07-30 15:38:00 Dewayne Reilly Pis [facility] Medical DIFFERENTIAL An Center BASIC METABOLIC PANEL 2022-07-30 15:38:00 Dewayne Reilly [facility] Medical An Center PROTHROMBIN TIME/INR 2022-07-30 15:38:00 Dewayne Reilly Pis [facility] Medical An Center MAGNESIUM 2022-07-30 15:38:00 Dewayne Reilly [facility] Medical An Center CBC W/PLT COUNT & AUTO 2022-07-30 15:38:00 LianeиринаDayron [facility] Medical DIFFERENTIAL [facility] Plan of Care Planned Activity Planned Date Details Comments Source Future Scheduled 2025-07-31 Lipid panel (procedure) [facility] 00:00:00 [code = 95216654] Medical Ce nter Future Scheduled 2022-11-16 Influenza [...] [facility] 00:00:00 [code = 01552808] Medical Ce nter Future Scheduled 2021-03-18 DEPRESSION [...] cervix Medical C enter (procedure) [code = 324166524] Future Scheduled 1997 Screening for malignant [facility] 00:00:00 neoplasm of cervix Medical C enter (procedure) [code = 096794526] Future Scheduled 1995 DTAP/TDAP/TD VACCINES (1 [facility] [...] screening Medical Cent er (procedure) [code = 249792260] Future Scheduled [address] [facility] Test 00:00:00 Counseling and Screening Med ical Center (12+) [code = Tobacco Cessation Counseling and Screening (12+)] Future Scheduled 1982 Pneumococcal Vaccine: [facility]:00 0-64 Years (1 - PCV) Medical Center [code = Pneumococcal Vaccine: 0-64 Years (1 - PCV)] Future Scheduled 1982 PNEUMOCOCCAL VACCINE 0-64 [facility] [...] [facility] 00:00:00 [code = CT Colonography Medi wale Center (combo)] Future Scheduled 1976 Screening for malignant [facility] Test 00:00:00 neoplasm of colon Medical Ce nter (procedure) [code = 642708009] Future Scheduled 1976 Screening for malignant [facility] Test 00:00:00 neoplasm of colon Medical Ce nter (procedure) [code = 954900801] Future Scheduled 1976 Screening for malignant [facility] Test 00:00:00 neoplasm of colon Medical Ce nter (procedure) [code = 791192608] Future Scheduled 1976 Screening for malignant [facility] Test 00:00:00 neoplasm of colon Medical Ce nter (procedure) [code = 912537311] Future Scheduled 1976 Sigmoidoscopy [code = [facility] S[facility]oidoscopy] Medical Cente r Future Scheduled 1976 CT Colonography (combo) [facility] 00:00:00 [code = CT Colonography [facility] (combo)] Future Scheduled 1976 Screening for malignant [facility] Test 00:00:00 neoplasm of colon Medical Ce nter (procedure) [code = 797163021] Future Scheduled 1976 Screening for malignant [facility] Test 00:00:00 neoplasm of colon Medical Ce nter (procedure) [code = 863937872] Future Scheduled 1976 Screening for malignant [facility] Test 00:00:00 neoplasm of colon Medical Ce nter (procedure) [code = 585808392] Future Scheduled 1976 Screening for malignant [facility] Test 00:00:00 neoplasm of colon Medical Ce nter (procedure) [code = 070883892] Future Scheduled 1976 Sigmoidoscopy [code = [facility] S[facility]oscopy] Medical Cente r Encounters Start End Encounter Admission Attending Care Care Encounter Source Date/Time Date/Time Type Type Clinicians Facility Department ID 2022-11-07 Inpatient ER ZAHRA PASCUAL [facility] [id number] [facility] 19:39:43 2022-11-06 Inpatient ER SUSIE TAI [facility] [id number] [facility] 11:21:11 2022-11-06 Inpatient ER SUSIE TAI [facility] [id number] [facility] 10:39:32 2022-11-05 Inpatient ER SUSIE TAI [facility] [id number] [facility] 13:31:19 2022-11-03 Inpatient ER SUSIE TAI [facility] [id number] [facility] 10:45:25 2022-11-01 Inpatient ER SLEH [facility] [id number] [facility] 09:28:17 2022-11-01 Inpatient ER SLEH [facility] [id number] [facility] 09:11:47 2022-10-31 Inpatient ER BERSHAD, [facility]H [facility] [id number] [facility] 00:51:03 KATHY 2022-10-31 Inpatient ER BERSHAD, SLEH [facility] [id number] [facility] 00:50:54 KATHY 2022-10-30 Inpatient ER SLEH [facility] [id number] [facility] 15:54:13 2022-10-30 Inpatient ER BERSHAD, SLEH [facility] [id number] [facility] 09:14:25 KATHY 2022-10-30 Inpatient ER BERSHAD, SLEH [facility] [id number] [facility]H 05:26:11 KATHY 2022-10-29 Inpatient ER BERSHAD, SLEH SLEH [id number] [facility]H 17:09:25 KATHY 2022-10-29 Inpatient ER [facility], SLE SLEH [id number] SLEH 03:50:03 MURRAY 2022-11-29 2022-11-29 Transition MONSE Sotelo [id number] Univers 00:00:00 00:00:00 of Care Desi REDDY 350.1.13.10 ity of PETE 4.2.7.2.686 [place] vit[place] [id number] [facility] 403 Branch 2022-11-24 2022-11-28 [facility] NicoZohaib Mcduffie [id number] Univers 11:15:00 21:45:00 Encounter Ryne Yoder 350.1.13.1 0 ity [facility] 4.2.7.2.686 [place] [id number] [facility] 090 Branch 2022-11-24 2022-11-28 Inpatient [facility] [id number] Univers 11:15:00 21:45:00 [facility] 2022-11-24 2022-11-28 Inpatient U [facility] [id number] Univers 11:15:00 21:45:00 [facility] 2022-11-13 Inpatient ER , [facility] [id number] SLEH 02:56:00 21:30:00 GOYO 2022-11-06 2022-11-06 Inpatient ER SLEH SLEH [id number] SLEH 08:32:27 00:00:00 2022-11-05 2022-11-05 Outpatient SLEH SLEH [id number] [facility]H 00:00:00 00:00:00 2022-11-05 2022-11-05 Outpatient SLEH SLEH [id number] [facility]H 00:00:00 00:00:00 2022-11-02 2022-11-02 Inpatient ER SUSIE TAI SLE SLEH [id number] SLEH 10:58:08 00:00:00 2022-10-29 2022-10-29 Inpatient ER PITTARD, SLEH SLEH [id number] SLEH 10:12:32 23:59:00 MURRAY 2022-10-29 2022-10-29 Inpatient ER PITTARD, SLEH SLEH [id number] SLEH 10:12:49 00:00:00 MURRAY 2022-10-29 2022-10-29 Inpatient ER PITTARD, SLEH SLEH [id number] SLEH 10:12:41 00:00:00 MURRAY 2022-08-12 2022-08-12 Telephone [place], [facility] [id number] 00:00:00 00:00:00 [facility] 2022-08-05 2022-08-11 Hospital ER Popeye Mcneal [facility] [id number] 18:09:00 14:47:00 Aida Courtney [facility] Clifton De Luna [facility] 2022-08-05 2022-08-11 Inpatient ER [facility] Gyne[facility] [id number] SLE 18:09:00 14:47:00 KRISTIN 2022-08-05 2022-08-05 Travel [facility] [id number] [facility] 00:[facility] 00:00:00 [facility] 2022-07-31 2022-08-03 Hospital UR Les Al [facility] [id number] 04:37:00 20:00:00 Encounter Nena Waller [facility] 2022-07-31 2022-08-03 Inpatient UR [facility] [id number] SLE 04:37:00 20:00:00 [facility] 2022-07-30 2022-07-31 Inpatient ER [facility] Gynecology [id number] [facility] 14:07:00 04:04:00 [place] 2022-07-30 2022-07-31 [facility] ER [facility], [facility] [id number] [facility] 14:07:00 04:04:00 Encounter [facility] 2022-07-31 2022-07-31 Orders [facility] [id number] 00:00:00 00:00:00 Only [facility] 2022-07-30 2022-07-30 Travel [facility] [id number] [facility] 00:[facility]:00 00:00:00 [facility] Results Test Description Test Time Test Comments Results Result Comments Source HEPATIC FUNCTION PANEL (90170) (ALB,T.PRO,BILI 2022-11-26 13 :08:17 T,BU/BC,ALT,AST,ALK PHOS) Test Item Value Reference Range Interpretation Comme nts TOTAL BILI (test code = 0175040893) 0.9 mg/dL 0.1-1.1 BILI UNCON (test code = 9317173171) 0.6 mg/dL 0.1-1.1 BILI CONJ (test code = 1558696990) 0.0 mg/dL 0.0-0.3 T PROTEIN (test code = 7761029204) 6.5 g/dL 6.3-8.2 ALBUMIN (test code = 3129950876) 4.0 g/dL 3.5-5.0 ALK PHOS (test code = 1642745773) 527 U/L 34-122 H ALTv (test code = 1742-6) 116 U/L 5-35 H AST(SGOT) (test code = 8074013172) 76 U/L 13-40 H Lab Interpretation (test code = 14412-9) Abnormal [facility] METABOLIC PANEL (NA, K, CL, CO2, GLUCOSE, BUN, CREATININE, CA)2022-11-26 10:08:01 Test Item Value Reference Range Interpretation Comments NA (test code = 136 mmol/L 135-145 5364462897) K (test code = 4.1 mmol/L 3.5-5.0 6250791437) CL (test code = 100 mmol/L 98-108 7209798710) CO2 TOTAL (test code 28 mmol/L 23-31 = 8426759239) AGAP (test code = 8 2-16 1912369231) BUN (test code = 17 mg/dL 7-23 2101119184) GLUCOSE (test code = 87 mg/dL 70-110 7910697929) CREATININE (test code 1.00 mg/dL 0.50-1.04 = 2621280641) CALCIUM (test code = 9.3 mg/dL 8.6-10.6 8505064862) eGFR (test code = 59.7 mL/min/1.73m2 5941439525) SUE (test code = SUE) Association of Glomerular Filtration Rate (GFR) and Staging of Kidney Disease* + + +- +| GFR (mL/min/1.73 m2) ?| With Kidney Damage ?| ?Without Kidney Damage+ ------+ ----+ ------+| ?>90 ?| ?Stage one ?| ? Normal ?+ -+ + -+| ?60-89 ?| ?Stage two ?| ? Decreased GFR ? + + +- +| ?30-59 ?| ?Stage three ?| ? Stage three ? + + +- +| ?15-29 ?| ?Stage four ? | ? Stage four ?+ -+ + -+| ?<15 (or dialysis) ? ?| ?Stage five ? | ? Stage five ?+ -+ + -+ *Each stage assumes the associated GFR level has been in effect for at least three months. ?Stages 1 to 5, with or without kidney disease, indicate chronic kidney disease. Notes: Determination of stages one and two (with eGFR >59mL/min/1.73 m2) requires estimation of kidney damage for at least three months as defined by structural or functional abnormalities of the kidney, manifested by either:Pathological abnormalities or Markers of kidney damage (including abnormalities in the composition of the blood or urine or abnormalities in imaging tests). [facility] 10:[facility]01 Test Item Value Reference Range Interpretation Comments MAGNESIUM (test code = 2778228928) 1.8 mg/dL 1.7-2.4 Lab Interpretation (test code = Normal 62871-9) [facility] WITH [id number] 09:36:22 Test Item Value Reference Range Interpretation Comments WBC (test code = 4.18 See_Comment L [Automated 4290-2) message] The sy stem which generated this result transmitted reference range : 4.30 - 11.10 10*3/?L. The reference range was not used to interpret this result as normal/abnormal . RBC (test code = 3.39 See_Comment L [Automated 759-8) message] The sy stem which generated this result transmitted reference range : 3.93 - 5.25 10*6/?L. The reference range was not used to interpret this result as normal/abnormal . HGB (test code = 11.0 g/dL 11.6-15.0 L 718-7) HCT (test code = 31.9 % 35.7-45.2 L 4544-3) MCV (test code = 94.1 fL 80.6-95.5 787-2) MCH (test code = 32.4 pg 25.9-32.8 785-6) MCHC (test code = 34.5 g/dL 31.6-35.1 786-4) RDW-SD (test code = 42.7 fL 39.0-49.9 93685-0) RDW-CV (test code = 12.5 % 12.0-15.5 788-0) PLT (test code = 151 See_Comment L [Automated 777-3) message] The sy stem which generated this result transmitted reference range : 166 - 358 10*3/ ?L. The reference r elizabeth was not used to interpret this result as normal/abnormal . MPV (test code = 9.4 fL 9.5-12.9 L 20498-7) NRBC/100 WBC (test 0.0 See_Comment [Automat ed code = 4298868213) message] The system which generated this result transmitted reference range : 0.0 - 10.0 /100 WBCs. The refer ence range was not u sed to interpret th is result as normal/abnormal . NRBC x10^3 (test code See_Comment [Auto mated = 8165858321) message] The s ystem which generated this result transmitted reference range : 10*3/?L. The reference range was not used to interpret this result as normal/abnormal . GRAN MAT (NEUT) % 68.0 % (test code = 770-8) IMM GRAN % (test code 0.00 % = 2343986103) LYMPH % (test code = 17.7 % 736-9) MONO % (test code = 9.1 % 5905-5) EOS % (test code = 4.5 % 713-8) BASO % (test code = 0.7 % 706-2) GRAN MAT x10^3(ANC) 2.84 10*3/uL 1.88-7.09 (test code = 7263737720) IMM GRAN x10^3 (test 0.00-0.06 code = 7742280951) LYMPH x10^3 (test code 0.74 10*3/uL 1.32-3.29 L = 731-0) MONO x10^3 (test code 0.38 10*3/uL 0.33-0.92 = 742-7) EOS x10^3 (test code = 0.19 10*3/uL 0.03-0.39 711-2) BASO x10^3 (test code 0.03 10*3/uL 0.01-0.07 = 704-7) Lab Interpretation Abnormal (test code = 82658-3) [facility] METABOLIC PANEL (NA, K, CL, CO2, GLUCOSE, BUN, CREATININE, CA)2022-11-25 09:47:18 Test Item Value Reference Range Interpretation Comments NA (test code = 135 mmol/L 135-145 1615965927) K (test code = 5.0 mmol/L 3.5-5.0 Slight 3036619767) hemolysis CL (test code = 100 mmol/L 98-108 4238369385) CO2 TOTAL (test code 28 mmol/L 23-31 = 3511901091) AGAP (test code = 7 2-16 4606075142) BUN (test code = 20 mg/dL 7-23 Slight 7623790243) hemolysis GLUCOSE (test code = 109 mg/dL 70-110 0873799460) CREATININE (test code 1.20 mg/dL 0.50-1.04 H = 8237012029) CALCIUM (test code = 9.2 mg/dL 8.6-10.6 6745663766) eGFR (test code = 48.4 mL/min/1.73m2 3649662335) SUE (test code = SUE) Association of Glomerular Filtration Rate (GFR) and Staging of Kidney Disease* + -----+ --------+ +| GFR (mL/min/1.73 m2) ?| With Kidney Damage ?| ?Without Kidney Damage+ +------- +---- --+| ?>90 ?| ?Stage one ?| ? Normal ?+ ------+ ---------+--------- +| ?60-89 ?| ?Stage two ?| ? Decreased GFR ? + -----+ --------+ +| ?30-59 ?| ?Stage three ?| ? Stage three ? + -----+ --------+ +| ?15-29 ?| ?Stage four ? | ? Stage four ?+ ------+ ---------+--------- +| ?<15 (or dialysis) ? ?| ?Stage five ? | ? Stage five ?+ ------+ ---------+--------- + *Each stage assumes the associated GFR level has been in effect for at least three months. ?Stages 1 to 5, with or without kidney disease, indicate chronic kidney disease. Notes: Determination of stages one and two (with eGFR >59mL/min/1.73 m2) requires estimation of kidney damage for at least three months as defined by structural or functional abnormalities of the kidney, manifested by either:Pathological abnormalities or Markers of kidney damage (including abnormalities in the composition of the blood or urine or abnormalities in imaging tests). Lab Interpretation Abnormal (test code = 79619-8) [facility] 09[facility]42:55 Test Item Value Reference Range Interpretation Comments MAGNESIUM (test code = 4473332768) 3.1 mg/dL 1.7-2.4 H Lab Interpretation (test code = Abnormal 35895-1) [facility] ANTIBODY [id number] 23:52:42 Test Item Value Reference Range Interpretation Comments HAVM 0.05 Semi-Quantitative (test code = 54804-7) SUE (test code = HAVAb IgM Interpretative SUE) Information: Reactive greater than or equal to 1.2 Biotin has been reported to cause a negative bias, interpret results relative to patient's use of biotin. [facility] DallasTROP[facility]IN [id number] 23:35:43 Test Item Value Reference Range Interpretation Comments TROPONIN I (test code = 0.911 ng/mL <=0.034 H [id number]) SUE (test code = SUE) Reference (Normal) Range (defined by the 99th percentile reference limit): <= 0.034 ng/mL Note: Cardiac troponin begins to rise 3-4 hours after the onset of ischemia. Repeat in 4-6 hours if the sample was drawn within 3-4 hours of the onset of the symptom and found normal. Diagnosis of myocardial injury is made with acute changes in cTn concentrations with at least one serial sample above the 99th percentile upper reference limit (URL), taken together with the patient's clinical presentation. Biotin has been reported to cause a negative bias, interpret results relative to patient's use of biotin. Lab Interpretation Abnormal (test code = 91270-9) [facility] DallasHIV 1/2 AG-AB WITH [id number] 21:57:58 Test Item Value Reference Range Interpretation Comments HIV 0.12 Negative Semi-quantitative (test code = 56089-5) SUE (test code = Non-reactive for HIV-1 SUE) antigen and HIV-1/HIV-2 antibodies. ?No laboratory evidence of HIV infection. ?Repeat in 2-4 weeks if acute HIV infection is suspected. [facility] DallasHCV [id number] 21:57:58 Test Item Value Reference Range Interpretation Comments HCV Ab (test code = 05456-3) Negative HCV Semi-Quantitative (test code = 0.01 25736-7) [facility] DallasHEPATITIS B SURFACE [id number] 21:57:58 Test Item Value Reference Range Interpretation Comments HBsAB (test code = Negative 7450416019) HBsAb 0.00 mIU/mL Semi-Quantitative (test code = 9729432223) SUE (test code = Interpretation: SUE) ?Hepatitis B Surface Antibody ? Negative - Patient is considered to be not immune to infection with HBV. ? ? Positive - Anti-HBs detected at greater than or equal to 12 mIU/mL. ?Patient is considered to be immune to infection with HBV. ? [facility] SURFACE [id number] 21:40:35 Test Item Value Reference Range Interpretation Comments HBsAg Semi-Quantitative (test code = 0.14 Negative 5195-3) [facility] DallasGLYCOSYLATED HEMOGLOBIN (A1C)2022-11-24 18:18:35 Test Item Value Reference Range Interpretation Comments HGB A1C (test code = 4.6 % 4.0-5.7 4548-4) SUE (test code = SUE) Reference RangesNormal: <5.7%Prediabetes: 5.7 - 6.4%Diabetes: > 6.5% Lab Interpretation (test Normal code = 56045-2) [facility] DallasTHYROID STIMULATING [id number] 17:58:24 Test Item Value Reference Range Interpretation Comments TSH (test code = 2.03 See_Comment [Automated message] [id number]) The system [employer] generated this result transmitted ref erence range: 0.45 - 4 .70 mIU/L. The refe rence range was not u sed to interpret this result as normal/abnor mal. Lab Interpretation (test Normal code = 16607-7) [facility] DallasTROPONIN [id number] 17:39:48 Test Item Value Reference Range Interpretation Comments TROPONIN I (test code = 1.340 ng/mL <=0.034 H 9885805401) SUE (test code = SUE) Reference (Normal) Range (defined by the 99th percentile reference limit): <= 0.034 ng/mL Note: Cardiac troponin begins to rise 3-4 hours after the onset of ischemia. Repeat in 4-6 hours if the sample was drawn within 3-4 hours of the onset of the symptom and found normal. Diagnosis of myocardial injury is made with acute changes in cTn concentrations with at least one serial sample above the 99th percentile upper reference limit (URL), taken together with the patient's clinical presentation. Biotin has been reported to cause a negative bias, interpret results relative to patient's use of biotin. Lab Interpretation Abnormal (test code = 02434-7) [facility] DallasN-TERMINAL [id number] 17:39:48 Test Item Value Reference Range Interpretation Comments NT-proBNP (test code = 2520 pg/mL <=125 H 57656-2) SUE (test code = SUE) Positive: Heart Failure Likely Lab Interpretation (test Abnormal code = 27683-8) [facility] DallasBASI METABOLIC PANEL (NA, K, CL, CO2, GLUCOSE, BUN, CREATININE, CA)2022-11-24 17:30:04 Test Item Value Reference Range Interpretation Comments NA (test code = 135 mmol/L 135-145 4896512993) K (test code = 3.9 mmol/L 3.5-5.0 5407775820) CL (test code = 97 mmol/L 98-108 L 2028346372) CO2 TOTAL (test code = 27 mmol/L 23-31 5959641296) AGAP (test code = 11 2-16 1484453702) BUN (test code = 23 mg/dL 7-23 8853335612) GLUCOSE (test code = 163 mg/dL 70-110 H 3122038969) CREATININE (test code = 1.40 mg/dL 0.50-1.04 H 1314773806) CALCIUM (test code = 9.4 mg/dL 8.6-10.6 1710690943) eGFR (test code = 40.5 mL/min/1.73m2 9768464067) SUE (test code = SUE) Association of Glomerular Filtration Rate (GFR) and Staging of Kidney Disease* + --+ --+ ------+| GFR (mL/min/1.73 m2) ?| With Kidney Damage ?| ?Without Kidney Damage+ --------+ --------+ +| ?>90 ?| ?Stage one ?| ? Normal ?+ ---+ ---+ -------+| ?60-89 ?| ?Stage two ?| ? Decreased GFR ? + --+ --+ ------+| ?30-59 ?| ?Stage three ?| ? Stage three ? + --+ --+ ------+| ?15-29 ?| ?Stage four ? | ? Stage four ?+ ---+ ---+ -------+| ?<15 (or dialysis) ? ?| ?Stage five ? | ? Stage five ?+ ---+ ---+ -------+ *Each stage assumes the associated GFR level has been in effect for at least three months. ?Stages 1 to 5, with or without kidney disease, indicate chronic kidney disease. Notes: Determination of stages one and two (with eGFR >59mL/min/1.73 m2) requires estimation of kidney damage for at least three months as defined by structural or functional abnormalities of the kidney, manifested by either:Pathological abnormalities or Markers of kidney damage (including abnormalities in the composition of the blood or urine or abnormalities in imaging tests). Lab Interpretation Abnormal (test code = 26938-1) [facility] DallasHEPATIC FUNCTION PANEL (15489) (ALB,T.PRO,BILI T,BU/BC,ALT,AST,ALK PHOS)2022-11-24 17:30:04 Test Item Value Reference Range Interpretation Comments TOTAL BILI (test code = 6102384641) 1.0 mg/dL 0.1-1.1 BILI UNCON (test code = 3797956034) 0.6 mg/dL 0.1-1.1 BILI CONJ (test code = 6230290386) 0.0 mg/dL 0.0-0.3 T PROTEIN (test code = 3333808222) 6.8 g/dL 6.3-8.2 ALBUMIN (test code = 1324564078) 4.1 g/dL 3.5-5.0 ALK PHOS (test code = 0545104318) 746 U/L 34-122 H ALTv (test code = 1742-6) 183 U/L 5-35 H AST(SGOT) (test code = 2103696181) 196 U/L 13-40 H Lab Interpretation (test code = Abnormal 34982-9) [facility] DallasLIPID PANEL (10398)(TOTAL CHOLESTEROL, TRIGLYCERIDES, HDL)2022-11-24 17:30:04 Test Item Value Reference Range Interpretation Comments CHOL (test code = 8468593829) 113 mg/dL 120-200 L HDL (test code = 6907725360) 62 mg/dL >=50 HDLC RATIO (test code = 4397188667) 1.8 <=4.5 TRIG (test code = 5655248656) 71 mg/dL 30-170 LDL CHOL (test code = 72782-1) 37 mg/dL <=160 VLDL (test code = 4199868086) 14 mg/dL 5-60 Lab Interpretation (test code = Abnormal 93859-3) [facility] WITH [id number] 16:55:22 Test Item Value Reference Range Interpretation Comments WBC (test code = 6.05 See_Comment [Automated 2590-2) message] The sy stem which generated this result transmitted reference range : 4.30 - 11.10 10*3/?L. The reference range was not used to interpret this result as normal/abnormal . RBC (test code = 3.21 See_Comment L [Automated 430-8) message] The sy stem which generated this result transmitted reference range : 3.93 - 5.25 10*6/?L. The reference range was not used to interpret this result as normal/abnormal . HGB (test code = 10.4 g/dL 11.6-15.0 L 718-7) HCT (test code = 30.6 % 35.7-45.2 L 4544-3) MCV (test code = 95.3 fL 80.6-95.5 787-2) MCH (test code = 32.4 pg 25.9-32.8 785-6) MCHC (test code = 34.0 g/dL 31.6-35.1 786-4) RDW-SD (test code = 44.3 fL 39.0-49.9 28463-4) RDW-CV (test code = 12.9 % 12.0-15.5 788-0) PLT (test code = 203 See_Comment [Automated 777-3) message] The sy stem which generated this result transmitted reference range : 166 - 358 10*3/ ?L. The reference r elizabeth was not used to interpret this result as normal/abnormal . MPV (test code = 9.9 fL 9.5-12.9 83644-5) NRBC/100 WBC (test 0.0 See_Comment [Automat ed code = 8840075390) message] The system which generated this result transmitted reference range : 0.0 - 10.0 /100 WBCs. The refer ence range was not u sed to interpret th is result as normal/abnormal . NRBC x10^3 (test code See_Comment [Auto mated = 3691385072) message] The s ystem which generated this result transmitted reference range : 10*3/?L. The reference range was not used to interpret this result as normal/abnormal . GRAN MAT (NEUT) % 59.6 % (test code = 770-8) IMM GRAN % (test code 0.20 % = 7562000403) LYMPH % (test code = 28.3 % 736-9) MONO % (test code = 9.1 % 5905-5) EOS % (test code = 2.5 % 713-8) BASO % (test code = 0.3 % 706-2) GRAN MAT x10^3(ANC) 3.61 10*3/uL 1.88-7.09 (test code = 3293681541) IMM GRAN x10^3 (test 0.00-0.06 code = 7987722935) LYMPH x10^3 (test code 1.71 10*3/uL 1.32-3.29 = 731-0) MONO x10^3 (test code 0.55 10*3/uL 0.33-0.92 = 742-7) EOS x10^3 (test code = 0.15 10*3/uL 0.03-0.39 711-2) BASO x10^3 (test code 0.01-0.07 = 704-7) Lab Interpretation Abnormal (test code = 72938-3) [facility]-GLUCOSE [id number] 12:43:54 Test Item Value Reference Range Interpretation Comments POC-GLUCOSE METER 138 mg/dL 70-110 H : TESTED A T [facility] 6720 (BEAKER) (test code = [facility] [place], 1538) [address]: Technical Adjuster/Techni smiley ID = [id number] for MANDA ESPARZA [id number] 06:54:19 Test Item Value Reference Range Interpretation Comments PHOSPHORUS (BEAKER) (test code = 4.2 mg/dL 2.3-4.7 604) Technical Adjuster ID - [id number] 06:54:18 Test Item Value Reference Range Interpretation Comments MAGNESIUM (BEAKER) (test code = 1.7 mg/dL 1.6-2.6 627) Technical Adjuster ID - ADMINCBC W/PLT COUNT & AUTO [id number] 06:00:54 Test Item Value Reference Range Interpretation Comments WHITE BLOOD CELL COUNT (BEAKER) 6.6 K/ L 3.5-10.5 (test code = 775) RED BLOOD CELL COUNT (BEAKER) 3.73 M/ L 3.93-5.22 L (test code = 761) HEMOGLOBIN (BEAKER) (test code = 11.6 GM/DL 11.2-15.7 410) HEMATOCRIT (BEAKER) (test code = 34.9 % 34.1-44.9 411) MEAN CORPUSCULAR VOLUME (BEAKER) 94 fL 79-95 (test code = 753) MEAN CORPUSCULAR HEMOGLOBIN 31.1 pg 25.6-32.2 (BEAKER) (test code = 751) MEAN CORPUSCULAR HEMOGLOBIN CONC 33.2 GM/DL 32.2-35.5 (BEAKER) (test code = 752) RED CELL DISTRIBUTION WIDTH 12.7 % 11.7-14.4 (BEAKER) (test code = 412) PLATELET COUNT (BEAKER) (test 275 K/CU MM 150-450 code = 756) MEAN PLATELET VOLUME (BEAKER) 9.7 fL 9.4-12.3 (test code = 754) NUCLEATED RED BLOOD CELLS 0 /100 WBC 0-0 (BEAKER) (test code = 413) NEUTROPHILS RELATIVE PERCENT 68 % (BEAKER) (test code = 429) LYMPHOCYTES RELATIVE PERCENT 21 % (BEAKER) (test code = 430) MONOCYTES RELATIVE PERCENT 8 % (BEAKER) (test code = 431) EOSINOPHILS RELATIVE PERCENT 2 % (BEAKER) (test code = 432) BASOPHILS RELATIVE PERCENT 1 % (BEAKER) (test code = 437) NEUTROPHILS ABSOLUTE COUNT 4.46 K/ L 1.56-6.13 (BEAKER) (test code = 670) LYMPHOCYTES ABSOLUTE COUNT 1.39 K/ L 1.18-3.74 (BEAKER) (test code = 414) MONOCYTES ABSOLUTE COUNT (BEAKER) 0.55 K/ L 0.24-0.36 H (test code = 415) EOSINOPHILS ABSOLUTE COUNT 0.13 K/ L 0.04-0.36 (BEAKER) (test code = 416) BASOPHILS ABSOLUTE COUNT (BEAKER) 0.05 K/ L 0.01-0.08 (test code = 417) IMMATURE GRANULOCYTES-RELATIVE 0.30 % 0.00-1.00 PERCENT (BEAKER) (test code = 2801) POCT-GLUCOSE [id number] 21:38:27 Test Item Value Reference Range Interpretation Comments POC-GLUCOSE METER 88 mg/dL 70-110 : TESTED A T [facility] 6720 (BEAKER) (test code = [facility], 153) [address]: Technical Adjuster/Techni smiley ID = [id number] for NADEGE MORALES POCT-GLUCOSE [id number] 18:19:26 Test Item Value Reference Range Interpretation Comments POC-GLUCOSE METER 93 mg/dL 70-110 : TESTED A T [facility] 6720 (BEAKER) (test code = [facility], 153) 605[address]: Technical Adjuster/Techni smiley ID = [id number] for MART MARY ANN, MANDA POCT-GLUCOSE [id number] 13:13:27 Test Item Value Reference Range Interpretation Comments POC-GLUCOSE METER 91 mg/dL 70-110 : TESTED A T [facility] 6720 (BEAKER) (test code = [facility], 153) 28213: Technical Adjuster/Techni smiley ID = [id number] for MART MARY ANN, MANDA BLOOD [id number] 12:00:51 Test Item Value Reference Range Interpretation Comments CULTURE (BEAKER) (test No growth in 5 days code = 1095) BLOOD [id number] 12:00:51 Test Item Value Reference Range Interpretation Comments CULTURE (BEAKER) (test No growth in 5 days code = 1095) The specimen volume collected for this blood culture was below the optimum (10 mL per bottle or 20 mL total). Use of lower volumes may adversely affect recovery and/or detection times of some organisms.POCT-GLUCOSE [id number] 06:46:01 Test Item Value Reference Range Interpretation Comments POC-GLUCOSE METER 102 mg/dL 70-110 : TESTED A T [facility] 6720 (BEAKER) (test code = [facility], 1538) 12[address]: Technical Adjuster/Techni smiley ID = [id number] for Teresa Rose [id number] 05:48:23 Test Item Value Reference Range Interpretation Comments MAGNESIUM (BEAKER) (test code = 1.8 mg/dL 1.6-2.6 627) Technical Adjuster ID - [id number] 05:48:23 Test Item Value Reference Range Interpretation Comments PHOSPHORUS (BEAKER) (test code = 3.6 mg/dL 2.3-4.7 604) Technical Adjuster ID - MARCOBASIC METABOLIC [id number] 05:48:22 Test Item Value Reference Range Interpretation Comments SODIUM (BEAKER) 144 meq/L 136-145 (test code = 381) POTASSIUM 3.8 meq/L 3.5-5.1 (BEAKER) (test code = 379) CHLORIDE (BEAKER) 104 meq/L 98-107 (test code = 382) CO2 (BEAKER) 28 meq/L 22-29 (test code = 355) BLOOD UREA 22 mg/dL 7-21 H NITROGEN (BEAKER) (test code = 354) CREATININE 0.86 mg/dL 0.57-1.25 (BEAKER) (test code = 358) GLUCOSE RANDOM 86 mg/dL 70-105 (BEAKER) (test code = 652) CALCIUM (BEAKER) 10.0 mg/dL 8.4-10.2 (test code = 697) EGFR (BEAKER) 84 Interpretatio n of eGFR (test code = [...] not appl icable for dialysis patien ts Technical Adjuster ID - MARCOCBC W/PLT COUNT & AUTO [id number] 05:10:47 Test Item Value Reference Range Interpretation Comments WHITE BLOOD CELL COUNT (BEAKER) 5.4 K/ L 3.5-10.5 (test code = 775) RED BLOOD CELL COUNT (BEAKER) 3.81 M/ L 3.93-5.22 L (test code = 761) HEMOGLOBIN (BEAKER) (test code = 12.0 GM/DL 11.2-15.7 410) HEMATOCRIT (BEAKER) (test code = 35.5 % 34.1-44.9 411) MEAN CORPUSCULAR VOLUME (BEAKER) 93 fL 79-95 (test code = 753) MEAN CORPUSCULAR HEMOGLOBIN 31.5 pg 25.6-32.2 (BEAKER) (test code = 751) MEAN CORPUSCULAR HEMOGLOBIN CONC 33.8 GM/DL 32.2-35.5 (BEAKER) (test code = 752) RED CELL DISTRIBUTION WIDTH 12.8 % 11.7-14.4 (BEAKER) (test code = 412) PLATELET COUNT (BEAKER) (test 221 K/CU MM 150-450 code = 756) MEAN PLATELET VOLUME (BEAKER) 9.7 fL 9.4-12.3 (test code = 754) NUCLEATED RED BLOOD CELLS 0 /100 WBC 0-0 (BEAKER) (test code = 413) NEUTROPHILS RELATIVE PERCENT 59 % (BEAKER) (test code = 429) LYMPHOCYTES RELATIVE PERCENT 29 % (BEAKER) (test code = 430) MONOCYTES RELATIVE PERCENT 9 % (BEAKER) (test code = 431) EOSINOPHILS RELATIVE PERCENT 2 % (BEAKER) (test code = 432) BASOPHILS RELATIVE PERCENT 1 % (BEAKER) (test code = 437) NEUTROPHILS ABSOLUTE COUNT 3.19 K/ L 1.56-6.13 (BEAKER) (test code = 670) LYMPHOCYTES ABSOLUTE COUNT 1.56 K/ L 1.18-3.74 (BEAKER) (test code = 414) MONOCYTES ABSOLUTE COUNT (BEAKER) 0.50 K/ L 0.24-0.36 H (test code = 415) EOSINOPHILS ABSOLUTE COUNT 0.10 K/ L 0.04-0.36 (BEAKER) (test code = 416) BASOPHILS ABSOLUTE COUNT (BEAKER) 0.03 K/ L 0.01-0.08 (test code = 417) IMMATURE GRANULOCYTES-RELATIVE 0.20 % 0.00-1.00 PERCENT (BEAKER) (test code = 2801) POCT-GLUCOSE [id number] 23:44:35 Test Item Value Reference Range Interpretation Comments POC-GLUCOSE METER 93 mg/dL 70-110 : TESTED A T [facility] 6720 (BEAKER) (test code = [facility], 153) [address]86[address]: Technical Adjuster/Techni smiley ID = [id number] for Teresa Camejo POCT-GLUCOSE [id number] 17:35:54 Test Item Value Reference Range Interpretation Comments POC-GLUCOSE METER 108 mg/dL 70-110 : TESTED A T [facility] 6720 (BEAKER) (test code = [facility], 153) 40129: Technical Adjuster/Techni smiley ID = [id number] for Donna Rolle BLOOD [id number] 17:01:46 Test Item Value Reference Range Interpretation Comments CULTURE (BEAKER) (test No growth in 5 days code = 1095) The specimen volume collected for this blood culture was below the optimum (10 mL per bottle or 20 mL total). Use of lower volumes may adversely affect recovery and/or detection times of some organisms.POCT-GLUCOSE [id number] 13:41:35 Test Item Value Reference Range Interpretation Comments POC-GLUCOSE METER 99 mg/dL 70-110 : TESTED A T [facility] 6720 (BEAKER) (test code = [facility], 153) 41385: Technical Adjuster/Techni smiley ID = [id number] for Donna Baxter BLOOD [id number] 13:01:43 Test Item Value Reference Range Interpretation Comments CULTURE (BEAKER) (test No growth in 5 days code = 1095) POCT-GLUCOSE [id number] 07:21:17 Test Item Value Reference Range Interpretation Comments POC-GLUCOSE METER 110 mg/dL 70-110 : TESTED A T [facility] 6720 (BEAKER) (test code = [place], 1538) [address]: Technical Adjuster/Techni smiley ID = [id number] for Teresa Rose BASIC METABOLIC [id number] 05:31:26 Test Item Value Reference Range Interpretation Comments SODIUM (BEAKER) 143 meq/L 136-145 (test code = 381) POTASSIUM 4.4 meq/L 3.5-5.1 (BEAKER) (test code = 379) CHLORIDE (BEAKER) 103 meq/L 98-107 (test code = 382) CO2 (BEAKER) 29 meq/L 22-29 (test code = 355) BLOOD UREA 32 mg/dL 7-21 H NITROGEN (BEAKER) (test code = 354) CREATININE 0.89 mg/dL 0.57-1.25 (BEAKER) (test code = 358) GLUCOSE RANDOM 91 mg/dL 70-105 (BEAKER) (test code = 652) CALCIUM (BEAKER) 10.0 mg/dL 8.4-10.2 (test code = 697) EGFR (BEAKER) 81 Interpretatio n of eGFR (test code = [...] not appl icable for dialysis patien ts Technical Adjuster ID - [id number] 05:31:26 Test Item Value Reference Range Interpretation Comments MAGNESIUM (BEAKER) (test code = 2.0 mg/dL 1.6-2.6 627) Technical Adjuster ID - [id number] 05:31:26 Test Item Value Reference Range Interpretation Comments PHOSPHORUS (BEAKER) (test code = 3.6 mg/dL 2.3-4.7 604) Technical Adjuster ID - MARCOCBC W/PLT COUNT & AUTO [id number] 04:56:52 Test Item Value Reference Range Interpretation Comments WHITE BLOOD CELL COUNT (BEAKER) 6.3 K/ L 3.5-10.5 (test code = 775) RED BLOOD CELL COUNT (BEAKER) 3.88 M/ L 3.93-5.22 L (test code = 761) HEMOGLOBIN (BEAKER) (test code = 12.3 GM/DL 11.2-15.7 410) HEMATOCRIT (BEAKER) (test code = 36.8 % 34.1-44.9 411) MEAN CORPUSCULAR VOLUME (BEAKER) 95 fL 79-95 (test code = 753) MEAN CORPUSCULAR HEMOGLOBIN 31.7 pg 25.6-32.2 (BEAKER) (test code = 751) MEAN CORPUSCULAR HEMOGLOBIN CONC 33.4 GM/DL 32.2-35.5 (BEAKER) (test code = 752) RED CELL DISTRIBUTION WIDTH 12.9 % 11.7-14.4 (BEAKER) (test code = 412) PLATELET COUNT (BEAKER) (test 201 K/CU MM 150-450 code = 756) MEAN PLATELET VOLUME (BEAKER) 9.8 fL 9.4-12.3 (test code = 754) NUCLEATED RED BLOOD CELLS 0 /100 WBC 0-0 (BEAKER) (test code = 413) NEUTROPHILS RELATIVE PERCENT 64 % (BEAKER) (test code = 429) LYMPHOCYTES RELATIVE PERCENT 23 % (BEAKER) (test code = 430) MONOCYTES RELATIVE PERCENT 10 % (BEAKER) (test code = 431) EOSINOPHILS RELATIVE PERCENT 3 % (BEAKER) (test code = 432) BASOPHILS RELATIVE PERCENT 1 % (BEAKER) (test code = 437) NEUTROPHILS ABSOLUTE COUNT 4.01 K/ L 1.56-6.13 (BEAKER) (test code = 670) LYMPHOCYTES ABSOLUTE COUNT 1.46 K/ L 1.18-3.74 (BEAKER) (test code = 414) MONOCYTES ABSOLUTE COUNT (BEAKER) 0.61 K/ L 0.24-0.36 H (test code = 415) EOSINOPHILS ABSOLUTE COUNT 0.16 K/ L 0.04-0.36 (BEAKER) (test code = 416) BASOPHILS ABSOLUTE COUNT (BEAKER) 0.03 K/ L 0.01-0.08 (test code = 417) IMMATURE GRANULOCYTES-RELATIVE 0.30 % 0.00-1.00 PERCENT (BEAKER) (test code = 2801) POCT-GLUCOSE [id number] 00:26:59 Test Item Value Reference Range Interpretation Comments POC-GLUCOSE METER 135 mg/dL 70-110 H : TESTED A T [facility] 6720 (BEAKER) (test code = [facility], 1538) 10885: Technical Adjuster/Techni smiley ID = [id number] for Teresa Rose POCT-GLUCOSE [id number] 17:22:27 Test Item Value Reference Range Interpretation Comments POC-GLUCOSE METER 127 mg/dL 70-110 H : TESTED A T [facility] 6720 (BEAKER) (test code = [facility], 1538) 94116: Technical Adjuster/Techni smiley ID = [id number] for Um eh, [place] POCT-GLUCOSE [id number] 17:20:21 Test Item Value Reference Range Interpretation Comments POC-GLUCOSE METER 23 mg/dL 70-110 LL : TESTED A T [facility] 6720 (BEAKER) (test code = [facility], 1538) 35873: Technical Adjuster/Techni smiley ID = [id number] for Umeh , [place]umbu POCT-GLUCOSE [id number] 12:34:42 Test Item Value Reference Range Interpretation Comments POC-GLUCOSE METER 129 mg/dL 70-110 H : TESTED A T [facility] 6720 (BEAKER) (test code = [facility], 1538) 26262: Technical Adjuster/Techni smiley ID = [id number] for Um eh, [place] [id number] 08:08:41 Test Item Value Reference Range Interpretation Comments MAGNESIUM (BEAKER) (test code = 1.9 mg/dL 1.6-2.6 627) Technical Adjuster ID - [id number] 08:08:41 Test Item Value Reference Range Interpretation Comments PHOSPHORUS (BEAKER) (test code = 3.5 mg/dL 2.3-4.7 604) Technical Adjuster ID - ADMINBASIC METABOLIC [id number] 08:08:40 Test Item Value Reference Range Interpretation Comments SODIUM (BEAKER) 140 meq/L 136-145 (test code = 381) POTASSIUM 4.3 meq/L 3.5-5.1 (BEAKER) (test code = 379) CHLORIDE (BEAKER) 102 meq/L 98-107 (test code = 382) CO2 (BEAKER) 25 meq/L 22-29 (test code = 355) BLOOD UREA 35 mg/dL 7-21 H NITROGEN (BEAKER) (test code = 354) CREATININE 0.92 mg/dL 0.57-1.25 (BEAKER) (test code = 358) GLUCOSE RANDOM 87 mg/dL 70-105 (BEAKER) (test code = 652) CALCIUM (BEAKER) 10.2 mg/dL 8.4-10.2 (test code = 697) EGFR (BEAKER) 78 Interpretatio n of eGFR (test code = [...] not appl icable for dialysis patien ts Technical Adjuster ID - ADMINPOCT-GLUCOSE [id number] 07:08:26 Test Item Value Reference Range Interpretation Comments POC-GLUCOSE METER 119 mg/dL 70-110 H : TESTED A T [facility] 6720 (BEAKER) (test code = AVINASH Dunn [facility], 1538) 77945: Technical Adjuster/Techni smiley ID = [id number] for Teresa Rose CBC W/PLT COUNT & AUTO [id number] 06:25:01 Test Item Value Reference Range Interpretation Comments WHITE BLOOD CELL COUNT (BEAKER) 9.4 K/ L 3.5-10.5 (test code = 775) RED BLOOD CELL COUNT (BEAKER) 3.88 M/ L 3.93-5.22 L (test code = 761) HEMOGLOBIN (BEAKER) (test code = 12.2 GM/DL 11.2-15.7 410) HEMATOCRIT (BEAKER) (test code = 36.5 % 34.1-44.9 411) MEAN CORPUSCULAR VOLUME (BEAKER) 94 fL 79-95 (test code = 753) MEAN CORPUSCULAR HEMOGLOBIN 31.4 pg 25.6-32.2 (BEAKER) (test code = 751) MEAN CORPUSCULAR HEMOGLOBIN CONC 33.4 GM/DL 32.2-35.5 (BEAKER) (test code = 752) RED CELL DISTRIBUTION WIDTH 13.2 % 11.7-14.4 (BEAKER) (test code = 412) PLATELET COUNT (BEAKER) (test 203 K/CU MM 150-450 code = 756) MEAN PLATELET VOLUME (BEAKER) 9.9 fL 9.4-12.3 (test code = 754) NUCLEATED RED BLOOD CELLS 0 /100 WBC 0-0 (BEAKER) (test code = 413) NEUTROPHILS RELATIVE PERCENT 76 % (BEAKER) (test code = 429) LYMPHOCYTES RELATIVE PERCENT 14 % (BEAKER) (test code = 430) MONOCYTES RELATIVE PERCENT 8 % (BEAKER) (test code = 431) EOSINOPHILS RELATIVE PERCENT 2 % (BEAKER) (test code = 432) BASOPHILS RELATIVE PERCENT 0 % (BEAKER) (test code = 437) NEUTROPHILS ABSOLUTE COUNT 7.13 K/ L 1.56-6.13 H (BEAKER) (test code = 670) LYMPHOCYTES ABSOLUTE COUNT 1.34 K/ L 1.18-3.74 (BEAKER) (test code = 414) MONOCYTES ABSOLUTE COUNT (BEAKER) 0.76 K/ L 0.24-0.36 H (test code = 415) EOSINOPHILS ABSOLUTE COUNT 0.15 K/ L 0.04-0.36 (BEAKER) (test code = 416) BASOPHILS ABSOLUTE COUNT (BEAKER) 0.04 K/ L 0.01-0.08 (test code = 417) IMMATURE GRANULOCYTES-RELATIVE 0.20 % 0.00-1.00 PERCENT (BEAKER) (test code = 2801) POCT-GLUCOSE [id number] 23:32:08 Test Item Value Reference Range Interpretation Comments POC-GLUCOSE METER 97 mg/dL 70-110 : TESTED A T [facility] 6720 (BEAKER) (test code = [place], 1538) [address]: Technical Adjuster/Techni smiley ID = [id number] for Weav er, Teresa POCT-GLUCOSE [id number] 17:52:25 Test Item Value Reference Range Interpretation Comments POC-GLUCOSE METER 121 mg/dL 70-110 H : TESTED A T [facility] 6720 (BEAKER) (test code = [facility], 1538) 88800: Technical Adjuster/Techni smiley ID = [id number] for An Donna lucas POCT-GLUCOSE [id number] 12:24:17 Test Item Value Reference Range Interpretation Comments POC-GLUCOSE METER 106 mg/dL 70-110 : TESTED A T [facility] 6720 (BEAKER) (test code = [facility], 1538) 980[address]: Technical Adjuster/Techni smiley ID = [id number] for An Donna lucas VANCOMYCIN LEVEL, [id number] 10:00:44 Test Item Value Reference Range Interpretation Comments VANCOMYCIN TROUGH (BEAKER) (test 35.0 ug/mL 10.0-20.0 HH code = 522) Technical Adjuster ID - ADMINPOCT-GLUCOSE [id number] 06:04:34 Test Item Value Reference Range Interpretation Comments POC-GLUCOSE METER 98 mg/dL 70-110 : TESTED A T [facility] 6720 (BEAKER) (test code = [facility], 1538) 20858: Technical Adjuster/Techni smiley ID = [id number] for Andi Warren [id number] 04:34:22 Test Item Value Reference Range Interpretation Comments PHOSPHORUS (BEAKER) (test code = 4.3 mg/dL 2.3-4.7 604) Technical Adjuster ID - mmBASIC METABOLIC [id number] 04:34:21 Test Item Value Reference Range Interpretation Comments SODIUM (BEAKER) 144 meq/L 136-145 (test code = 381) POTASSIUM 4.3 meq/L 3.5-5.1 (BEAKER) (test code = 379) CHLORIDE (BEAKER) 105 meq/L 98-107 (test code = 382) CO2 (BEAKER) 28 meq/L 22-29 (test code = 355) BLOOD UREA 45 mg/dL 7-21 H NITROGEN (BEAKER) (test code = 354) CREATININE 1.28 mg/dL 0.57-1.25 H (BEAKER) (test code = 358) GLUCOSE RANDOM 102 mg/dL 70-105 (BEAKER) (test code = 652) CALCIUM (BEAKER) 10.3 mg/dL 8.4-10.2 H (test code = 697) EGFR (BEAKER) 52 [...] not appl icable for dialysis patien ts Technical Adjuster ID - [id number] 04:34:21 Test Item Value Reference Range Interpretation Comments MAGNESIUM (BEAKER) (test code = 2.0 mg/dL 1.6-2.6 627) Technical Adjuster ID - mmCBC W/PLT COUNT & AUTO [id number] 04:15:17 Test Item Value Reference Range Interpretation Comments WHITE BLOOD CELL COUNT (BEAKER) 7.6 K/ L 3.5-10.5 (test code = 775) RED BLOOD CELL COUNT (BEAKER) 3.81 M/ L 3.93-5.22 L (test code = 761) HEMOGLOBIN (BEAKER) (test code = 12.1 GM/DL 11.2-15.7 410) HEMATOCRIT (BEAKER) (test code = 37.1 % 34.1-44.9 411) MEAN CORPUSCULAR VOLUME (BEAKER) 97 fL 79-95 H (test code = 753) MEAN CORPUSCULAR HEMOGLOBIN 31.8 pg 25.6-32.2 (BEAKER) (test code = 751) MEAN CORPUSCULAR HEMOGLOBIN CONC 32.6 GM/DL 32.2-35.5 (BEAKER) (test code = 752) RED CELL DISTRIBUTION WIDTH 13.3 % 11.7-14.4 (BEAKER) (test code = 412) PLATELET COUNT (BEAKER) (test 223 K/CU MM 150-450 code = 756) MEAN PLATELET VOLUME (BEAKER) 9.5 fL 9.4-12.3 (test code = 754) NUCLEATED RED BLOOD CELLS 0 /100 WBC 0-0 (BEAKER) (test code = 413) NEUTROPHILS RELATIVE PERCENT 67 % (BEAKER) (test code = 429) LYMPHOCYTES RELATIVE PERCENT 20 % (BEAKER) (test code = 430) MONOCYTES RELATIVE PERCENT 10 % (BEAKER) (test code = 431) EOSINOPHILS RELATIVE PERCENT 2 % (BEAKER) (test code = 432) BASOPHILS RELATIVE PERCENT 1 % (BEAKER) (test code = 437) NEUTROPHILS ABSOLUTE COUNT 5.13 K/ L 1.56-6.13 (BEAKER) (test code = 670) LYMPHOCYTES ABSOLUTE COUNT 1.51 K/ L 1.18-3.74 (BEAKER) (test code = 414) MONOCYTES ABSOLUTE COUNT (BEAKER) 0.77 K/ L 0.24-0.36 H (test code = 415) EOSINOPHILS ABSOLUTE COUNT 0.12 K/ L 0.04-0.36 (BEAKER) (test code = 416) BASOPHILS ABSOLUTE COUNT (BEAKER) 0.06 K/ L 0.01-0.08 (test code = 417) IMMATURE GRANULOCYTES-RELATIVE 0.30 % 0.00-1.00 PERCENT (BEAKER) (test code = 2801) POCT-GLUCOSE [id number] 00:10:22 Test Item Value Reference Range Interpretation Comments POC-GLUCOSE METER 102 mg/dL 70-110 : TESTED A T [facility] 6720 (BEAKER) (test code [facility], = 1538) 13710: Technical Adjuster/Techni smiley ID = [id number] for Andi Warren BASIC METABOLIC [id number] 19:00:42 Test Item Value Reference Range Interpretation Comments SODIUM (BEAKER) 143 meq/L 136-145 (test code = 381) POTASSIUM 4.5 meq/L 3.5-5.1 (BEAKER) (test code = 379) CHLORIDE (BEAKER) 106 meq/L 98-107 (test code = 382) CO2 (BEAKER) 25 meq/L 22-29 (test code = 355) BLOOD UREA 47 mg/dL 7-21 H NITROGEN (BEAKER) (test code = 354) CREATININE 1.27 mg/dL 0.57-1.25 H (BEAKER) (test code = 358) GLUCOSE RANDOM 115 mg/dL 70-105 H (BEAKER) (test code = 652) CALCIUM (BEAKER) 10.2 mg/dL 8.4-10.2 (test code = 697) EGFR (BEAKER) 53 Interpretatio n of eGFR (test code = [...] not appl icable for dialysis patien ts Technical Adjuster ID - JSPOCT-GLUCOSE [id number] 17:28:38 Test Item Value Reference Range Interpretation Comments POC-GLUCOSE METER 122 mg/dL 70-110 H : TESTED A T [facility] 6720 (BEAKER) (test code = [facility], 1538) 08162: Technical Adjuster/Techni smiley ID = [id number] for An Donna lucas POCT-GLUCOSE [id number] 12:36:44 Test Item Value Reference Range Interpretation Comments POC-GLUCOSE METER 110 mg/dL 70-110 : TESTED A T [facility] 6720 (BEAKER) (test code = [facility], 1538) 46755: Technical Adjuster/Techni smiley ID = [id number] for An Donna lucas [id number] 06:20:37 Test Item Value Reference Range Interpretation Comments MAGNESIUM (BEAKER) (test code = 2.2 mg/dL 1.6-2.6 627) Technical Adjuster ID - [id number] 06:20:37 Test Item Value Reference Range Interpretation Comments PHOSPHORUS (BEAKER) (test code = 3.9 mg/dL 2.3-4.7 604) Technical Adjuster ID - ADMINBASIC METABOLIC [id number] 06:20:36 Test Item Value Reference Range Interpretation Comments SODIUM (BEAKER) 147 meq/L 136-145 H (test code = 381) POTASSIUM 4.4 meq/L 3.5-5.1 (BEAKER) (test code = 379) CHLORIDE (BEAKER) 108 meq/L 98-107 H (test code = 382) CO2 (BEAKER) 27 meq/L 22-29 (test code = 355) BLOOD UREA 49 mg/dL 7-21 H NITROGEN (BEAKER) (test code = 354) CREATININE 1.31 mg/dL 0.57-1.25 H (BEAKER) (test code = 358) GLUCOSE RANDOM 93 mg/dL 70-105 (BEAKER) (test code = 652) CALCIUM (BEAKER) 10.2 mg/dL 8.4-10.2 (test code = 697) EGFR (BEAKER) 51 Interpretatio n of eGFR (test code = [...] not appl icable for dialysis patien ts Technical Adjuster ID - ADMINPOCT-GLUCOSE [id number] 06:09:53 Test Item Value Reference Range Interpretation Comments POC-GLUCOSE METER 69 mg/dL 70-110 L : TESTED A T [facility] 6720 (BEAKER) (test code = [place], 1538) 125[address]: Technical Adjuster/Techni smiley ID = [id number] for Andi Warren CBC W/PLT COUNT & AUTO [id number] 05:15:05 Test Item Value Reference Range Interpretation Comments WHITE BLOOD CELL COUNT (BEAKER) 7.0 K/ L 3.5-10.5 (test code = 775) RED BLOOD CELL COUNT (BEAKER) 3.78 M/ L 3.93-5.22 L (test code = 761) HEMOGLOBIN (BEAKER) (test code = 11.8 GM/DL 11.2-15.7 410) HEMATOCRIT (BEAKER) (test code = 36.7 % 34.1-44.9 411) MEAN CORPUSCULAR VOLUME (BEAKER) 97 fL 79-95 H (test code = 753) MEAN CORPUSCULAR HEMOGLOBIN 31.2 pg 25.6-32.2 (BEAKER) (test code = 751) MEAN CORPUSCULAR HEMOGLOBIN CONC 32.2 GM/DL 32.2-35.5 (BEAKER) (test code = 752) RED CELL DISTRIBUTION WIDTH 13.4 % 11.7-14.4 (BEAKER) (test code = 412) PLATELET COUNT (BEAKER) (test 234 K/CU MM 150-450 code = 756) MEAN PLATELET VOLUME (BEAKER) 9.4 fL 9.4-12.3 (test code = 754) NUCLEATED RED BLOOD CELLS 0 /100 WBC 0-0 (BEAKER) (test code = 413) NEUTROPHILS RELATIVE PERCENT 66 % (BEAKER) (test code = 429) LYMPHOCYTES RELATIVE PERCENT 20 % (BEAKER) (test code = 430) MONOCYTES RELATIVE PERCENT 10 % (BEAKER) (test code = 431) EOSINOPHILS RELATIVE PERCENT 2 % (BEAKER) (test code = 432) BASOPHILS RELATIVE PERCENT 1 % (BEAKER) (test code = 437) NEUTROPHILS ABSOLUTE COUNT 4.64 K/ L 1.56-6.13 (BEAKER) (test code = 670) LYMPHOCYTES ABSOLUTE COUNT 1.43 K/ L 1.18-3.74 (BEAKER) (test code = 414) MONOCYTES ABSOLUTE COUNT (BEAKER) 0.70 K/ L 0.24-0.36 H (test code = 415) EOSINOPHILS ABSOLUTE COUNT 0.17 K/ L 0.04-0.36 (BEAKER) (test code = 416) BASOPHILS ABSOLUTE COUNT (BEAKER) 0.07 K/ L 0.01-0.08 (test code = 417) IMMATURE GRANULOCYTES-RELATIVE 0.30 % 0.00-1.00 PERCENT (BEAKER) (test code = 2801) XR ABDOMEN/KUB 1 VIEW [id number] 21:59:17 [facility] 1975 Sex: FEXAM/TECHNIQUE: XR ABDOMEN/KUB 1 VIEW PORTABLEINDICATION: Confirm corpak placementCOMPARISON: 11/05/2022.FINDINGS: Feeding tube terminates in the distal stomach. No dilated loops of largesmall bowel. No acute osseous process. Lung bases are clear.IMPRESSION:Feeding tube terminates in the distal stomach.Electronically Signed By: Carlos Preciado11/07/2022 22:01 CDTWorkstation Name: [id number] METABOLIC [id number] 18:29:04 Test Item Value Reference Range Interpretation Comments SODIUM (BEAKER) 148 meq/L 136-145 H (test code = 381) POTASSIUM 4.8 meq/L 3.5-5.1 (BEAKER) (test code = 379) CHLORIDE (BEAKER) 108 meq/L 98-107 H (test code = 382) CO2 (BEAKER) 28 meq/L 22-29 (test code = 355) BLOOD UREA 58 mg/dL 7-21 H NITROGEN (BEAKER) (test code = 354) CREATININE 1.53 mg/dL 0.57-1.25 H (BEAKER) (test code = 358) GLUCOSE RANDOM 91 mg/dL 70-105 (BEAKER) (test code = 652) CALCIUM (BEAKER) 10.5 mg/dL 8.4-10.2 H (test code = 697) EGFR (BEAKER) 42 Interpretatio n of eGFR (test code = [...] not appl icable for dialysis patien ts Technical Adjuster ID - BSDRUG SCREEN, URINE, [id number] 08:47:31 Test Item Value Reference Range Interpretation Comments SCAN RESULT (test see scanned report See scanned report. code = 7291456) see scanned reportPOCT-GLUCOSE [id number] 06:13:13 Test Item Value Reference Range Interpretation Comments POC-GLUCOSE METER 81 mg/dL 70-110 : TESTED A T [facility] 6720 (BEAKER) (test code = [place], 1538) 60[address]: Technical Adjuster/Techni smiley ID = [id number] for Jessica Rodrigues [id number] 04:03:55 Test Item Value Reference Range Interpretation Comments PHOSPHORUS (BEAKER) (test code = 4.8 mg/dL 2.3-4.7 H 604) Technical Adjuster ID - EMBASIC METABOLIC [id number] 04:03:54 Test Item Value Reference Range Interpretation Comments SODIUM (BEAKER) 146 meq/L 136-145 H (test code = 381) POTASSIUM 4.8 meq/L 3.5-5.1 (BEAKER) (test code = 379) CHLORIDE (BEAKER) 108 meq/L 98-107 H (test code = 382) CO2 (BEAKER) 27 meq/L 22-29 (test code = 355) BLOOD UREA 62 mg/dL 7-21 H NITROGEN (BEAKER) (test code = 354) CREATININE 1.75 mg/dL 0.57-1.25 H (BEAKER) (test code = 358) GLUCOSE RANDOM 86 mg/dL 70-105 (BEAKER) (test code = 652) CALCIUM (BEAKER) 9.8 mg/dL 8.4-10.2 (test code = 697) EGFR (BEAKER) 36 Interpretatio n of eGFR (test code = [...] not appl icable for dialysis patien ts Technical Adjuster ID - [id number] 04:03:54 Test Item Value Reference Range Interpretation Comments MAGNESIUM (BEAKER) (test code = 2.4 mg/dL 1.6-2.6 627) Technical Adjuster ID - EMHIGH SENSITIVITY TROPONIN [id number] 03:58:57 Test Item Value Reference Range Interpretation Comments HIGH SENSITIVITY 165 pg/ml See_Comment H [Automated message] TROPONIN I (test code The sy stem which = [id number]) generated this result transmitted ref erence range: <=17. Th e reference range was not used to int erpret this result as normal/abnormal . Technical Adjuster ID - EMThe ON SITE WASTEWATER SYSTEMS TECHNICIAN STAT High Sensitivity Troponin-I results should be used in conjunctionwith other diagnostic information such as ECG, clinical observations and information, and patient symptoms to aid in the diagnosis of PA.CBC W/PLT COUNT & AUTO [id number] 03:38:52 Test Item Value Reference Range Interpretation Comments WHITE BLOOD CELL COUNT (BEAKER) 7.8 K/ L 3.5-10.5 (test code = 775) RED BLOOD CELL COUNT (BEAKER) 3.65 M/ L 3.93-5.22 L (test code = 761) HEMOGLOBIN (BEAKER) (test code = 11.6 GM/DL 11.2-15.7 410) HEMATOCRIT (BEAKER) (test code = 35.6 % 34.1-44.9 411) MEAN CORPUSCULAR VOLUME (BEAKER) 98 fL 79-95 H (test code = 753) MEAN CORPUSCULAR HEMOGLOBIN 31.8 pg 25.6-32.2 (BEAKER) (test code = 751) MEAN CORPUSCULAR HEMOGLOBIN CONC 32.6 GM/DL 32.2-35.5 (BEAKER) (test code = 752) RED CELL DISTRIBUTION WIDTH 13.8 % 11.7-14.4 (BEAKER) (test code = 412) PLATELET COUNT (BEAKER) (test 221 K/CU MM 150-450 code = 756) MEAN PLATELET VOLUME (BEAKER) 9.3 fL 9.4-12.3 L (test code = 754) NUCLEATED RED BLOOD CELLS 0 /100 WBC 0-0 (BEAKER) (test code = 413) NEUTROPHILS RELATIVE PERCENT 70 % (BEAKER) (test code = 429) LYMPHOCYTES RELATIVE PERCENT 18 % (BEAKER) (test code = 430) MONOCYTES RELATIVE PERCENT 9 % (BEAKER) (test code = 431) EOSINOPHILS RELATIVE PERCENT 2 % (BEAKER) (test code = 432) BASOPHILS RELATIVE PERCENT 1 % (BEAKER) (test code = 437) NEUTROPHILS ABSOLUTE COUNT 5.45 K/ L 1.56-6.13 (BEAKER) (test code = 670) LYMPHOCYTES ABSOLUTE COUNT 1.42 K/ L 1.18-3.74 (BEAKER) (test code = 414) MONOCYTES ABSOLUTE COUNT (BEAKER) 0.74 K/ L 0.24-0.36 H (test code = 415) EOSINOPHILS ABSOLUTE COUNT 0.14 K/ L 0.04-0.36 (BEAKER) (test code = 416) BASOPHILS ABSOLUTE COUNT (BEAKER) 0.05 K/ L 0.01-0.08 (test code = 417) IMMATURE GRANULOCYTES-RELATIVE 0.50 % 0.00-1.00 PERCENT (BEAKER) (test code = 2801) POCT-GLUCOSE [id number] 00:25:14 Test Item Value Reference Range Interpretation Comments POC-GLUCOSE METER 88 mg/dL 70-110 : TESTED A T [facility] 6720 (BEAKER) (test code = [place] [facility], 1538) [address]: Technical Adjuster/Techni smiley ID = [id number] for Jessica Rodrigues HIGH SENSITIVITY TROPONIN [id number] 22:04:24 Test Item Value Reference Range Interpretation Comments HIGH SENSITIVITY 193 pg/ml See_Comment H [Automated message] TROPONIN I (test code The sy stem which = [id number]) generated this result transmitted ref erence range: <=17. Th e reference range was not used to int erpret this result as normal/abnormal . Technical Adjuster ID - DBThe ON SITE WASTEWATER SYSTEMS TECHNICIAN STAT High Sensitivity Troponin-I results should be used in conjunctionwith other diagnostic information such as ECG, clinical observations and information, and patient symptoms to aid in the diagnosis of PA.URINALYSIS W/ REFLEX URINE [id number] 15:49:18 Test Item Value Reference Range Interpretation Comments COLOR (BEAKER) (test code = 470) Yellow CLARITY (BEAKER) (test code = 469) Cloudy SPECIFIC GRAVITY UA (BEAKER) (test 1.021 1.001-1.035 code = 468) PH UA (BEAKER) (test code = 467) 6.0 5.0-8.0 PROTEIN UA (BEAKER) (test code = 70 mg/dL Negative A 464) GLUCOSE UA (BEAKER) (test code = Negative Negative 365) KETONES UA (BEAKER) (test code = Negative Negative 371) BILIRUBIN UA (BEAKER) (test code = Negative Negative 462) BLOOD UA (BEAKER) (test code = 461) Moderate Negative A NITRITE UA (BEAKER) (test code = Negative Negative 465) LEUKOCYTE ESTERASE UA (BEAKER) (test Trace Negative A code = 466) UROBILINOGEN UA (BEAKER) (test code 0.2 0.2-1.0 = 463) RBC UA (BEAKER) (test code = 519) 23 /HPF WBC UA (BEAKER) (test code = 520) 8 /HPF MUCUS (BEAKER) (test code = 1574) Rare SQUAMOUS EPITHELIAL (BEAKER) (test 6 /HPF code = 516) HYALINE CASTS (BEAKER) (test code = 1 /LPF 514) SOURCE(BEAKER) (test code = 2795) Technical Adjuster ID - [auto]Technical Adjuster ID - [id number] 15:35:00 Test Item Value Reference Range Interpretation Comments PROTIME (BEAKER) (test 14.3 seconds 11.9-14.2 H code = 759) INR (BEAKER) (test 1.13 See_Comment [Automat ed code = 370) message] The sy stem which generated this result transmitted reference range : <=5.90. The reference range was not used to interpret this result as normal/abnormal . PARTIAL THROMBOPLASTIN 28.4 seconds 22.5-36.0 TIME (BEAKER) (test code = 760) RECOMMENDED COUMADIN/WARFARIN INR THERAPY RANGESSTANDARD DOSE: 2.0 - 3.0 Includes: PROPHYLAXIS for venous thrombosis, systemic embolization; TREATMENT for venous thrombosis and/or pulmonary embolus.HIGH RISK: Target INR is 2.5-3.5 for patients with mechanical heart valves.HIGH SENSITIVITY TROPONIN [id number] 15:30:15 Test Item Value Reference Range Interpretation Comments HIGH SENSITIVITY 264 pg/ml See_Comment H [Automated message] TROPONIN I (test code The sy stem which = [id number]) generated this result transmitted ref erence range: <=17. Th e reference range was not used to int erpret this result as normal/abnormal . Technical Adjuster ID - ADMINThe ON SITE WASTEWATER SYSTEMS TECHNICIAN STAT High Sensitivity Troponin-I results should be used in conjunction with other diagnostic information such as ECG, clinical observations and information, and patientsymptoms to aid in the diagnosis of PA. BLOOD GAS, [id number] 15:09:57 Test Item Value Reference Range Interpretation Comments PH ARTERIAL (BEAKER) (test code = 7.40 7.35-7.45 383) PCO2 ARTERIAL (BEAKER) (test code 44 mm Hg 35-45 = 384) PO2 ARTERIAL (BEAKER) (test code = 195 mm Hg 80-90 H 385) O2 SATURATION ARTERIAL (BEAKER) 99.3 % 96.0-97.0 H (test code = 386) HCO3 ARTERIAL (BEAKER) (test code 27 mmol/L 21-29 = 388) BASE EXCESS ARTERIAL (BEAKER) 1.6 mmol/L -2.0-3.0 (test code = 387) PATIENT TEMPERATURE (BEAKER) (test 37.0 code = 1818) FIO2 (BEAKER) (test code = 1819) 36.0 XR CHEST 1 VIEW PORTABLE / [id number] 13:38:36 [facility] : 1975 Sex: FChest, 1 view, 11/06/2022 11:58 AM.History: r/o aspiration pneumonia.Comparison: 10/30/2022.Discussion: Thecardiac silhouette is prominent but stable. Lungs areclear. There is no pneumothorax. Feeding tube terminates below thehemidiaphragm. Right IJ central line is no longer present. There are noacute osseous findings.IMPRESSION:No acute pulmonary findings.Electronically Signed By: Sage Caruso11/06/2022 13:40 CDTWorkstation Name: [id number] 2022-11-06 11:32:33 Test Item Value Reference Range Interpretation Comments PROCALCITONIN (BEAKER) (test code 0.31 ng/mL <0.05 H = 3036) SEPSIS RISK (ng/mL)Low: 0.05-0.50Intermediate: 0.51-2.00High: >=2.01HIGH SENSITIVITY TROPONIN [id number] 11:27:53 Test Item Value Reference Range Interpretation Comments HIGH SENSITIVITY 344 pg/ml See_Comment H [Automated message] TROPONIN I (test code The sy stem which = [id number]) generated this result transmitted ref erence range: <=17. Th e reference range was not used to int erpret this result as normal/abnormal . Technical Adjuster ID - DAMIÁN WThe ON SITE WASTEWATER SYSTEMS TECHNICIAN STAT High Sensitivity Troponin-I results should be used in conjunction with other diagnostic information such as ECG, clinical observations and information, and patient symptoms to aid in the diagnosis of PA.LACTIC ACID, [id number] 11:07:17 Test Item Value Reference Range Interpretation Comments LACTATE BLOOD VENOUS (2) (BEAKER) 0.80 mmol/L 0.50-2.00 (test code = 2872) Technical Adjuster ID Gisele STEEL WCT BRAIN WITHOUT IV [id number] 10:59:53 [facility] 1975 Sex: F ADDENDUM #1 Addendum: Compared to 11/02/2022, there is unchanged mass effect relatedto intraparenchymal hematoma given differences in technique with 7 mmleftward midline shift.ElectronicallySigned By: Alexandra Liang ORIGINAL REPORT CT BRAIN WITHOUT IV CONTRASTINDICATION: Unlisted Reason for ExamCOMPARISON: CT prior dayTECHNIQUE: Noncontrast axial CT imaging of the brain and skull. DOSE REDUCTION: Dose modulation, iterative reconstruction, and/orweight-based adjustment of the mA/kV was utilized to reduce theradiation dose to as low as reasonably achievable.FINDINGS:No significant interval change in previously described intraparenchymalhematoma centered at the right basal ganglia with intraventricularextent and trace acute blood products within the dependent portions ofthe lateral ventricles. Midline shift is increased, formerly 4 mm andnow 6-7 mm. There is effacement of the right lateral ventricle withearly entrapment of the left lateral ventricle and leftward subfalci neherniation. Orbits are within normal limits.No obstructive paranasal sinus disease.IMPRESSION:Increase mass effect related to previously described rightintraparenchymal hematoma with intraventricularextent, formerly with 4mm leftward midline shift and now 6-7 mm. New leftward subfalcineherniation. Early entrapment of the left lateral ventricle.If there is persistent clinical concern for intracranial pathology, MRexamination is recommended for further characterization.Electronically Signed By: Alexandra Liang11/06/2022 11:01 CDTWorkstation Name: [id number] 10:57:58 Test Item Value Reference Range Interpretation Comments POC-HEMATOCRIT 34 % 36-45 L : Technical Adjuster/Giancarlo solorio ID = (NERISBITA) (test code = 217538 for ISMAELCANDY, 185) SAMY [id number] 10:57:58 Test Item Value Reference Range Interpretation Comments POC-GLUCOSE (WESLEY) 117 mg/dL 70-110 H : TESTE D AT [facility] 67[address] (test code = 1855) [place], [address]: Technical Adjuster/Techni smiley ID = [id number] for SAMY DAVIS [id number] 10:57:57 Test Item Value Reference Range Interpretation Comments POC-POTASSIUM 5.5 meq/L 3.6-5.5 : TESTED AT [facility] 6720 (BEAKER) (test code [facility], = 1540) [address]: Technical Adjuster/Techni smiley ID = [id number] for SAMY DAVIS [id number] 10:57:57 Test Item Value Reference Range Interpretation Comments POC-HEMOGLOBIN 11.6 g/dL 12.0-15.0 L : TESTED AT [facility] 6720 (BEAKER) (test code [facility], = 1856) [address]: Technical Adjuster/Techni smiley ID = [id number] for SAMY DAVIS [id number] 10:57:52 Test Item Value Reference Range Interpretation Comments POC-SODIUM (BEAKER) 142 meq/L 135-148 : TESTED AT [facility] 67 (test code = 1542) [facility], [address]: Technical Adjuster/Techni smiley ID = [id number] for SAMY DAVIS POCT-BLOOD GASES, [id number] 10:57:51 Test Item Value Reference Range Interpretation Comments TEMP, CELSIUS-POC (BEAKER) (test code = 1834) FIO2-POC (BEAKER) (test code = 1835) PH, ARTERIAL-POC 7.36 7.35-7.45 (BEAKER) (test code = 1836) PCO2, ARTERIAL-POC 57.4 mm Hg 35.0-45.0 H If pO2 is >180, pCO2 may (BEAKER) (test code be posit ively biased = 1837) PO2, ARTERIAL-POC 22.0 mm Hg 80.0-90.0 LL (BEAKER) (test code = 1838) SO2, ARTERIAL-POC 35.0 % 96.0-97.0 L (BEAKER) (test code = 1839) HCO3, ARTERIAL-POC 32.6 meq/L 21.0-29.0 H (BEAKER) (test code = 1840) BASE EXCESS, 7.0 meq/L -2.0-3.0 H : TESTED AT [facility] [address] ARTERIAL-POC [facility], (BEAKER) (test code 16752: = 1841) Technical Adjuster/Techni smiley ID = [id number] for SAMY DAVIS POCT-GLUCOSE [id number] 10:21:20 Test Item Value Reference Range Interpretation Comments POC-GLUCOSE METER 117 mg/dL 70-110 H : TESTED A T [facility] [address] (BEAKER) (test code = AVINASH Dunn [place], 1538) [address]: Technical Adjuster/Techni smiley ID = [id number] for MANDA ESPARZA POCT-GLUCOSE [id number] 05:45:28 Test Item Value Reference Range Interpretation Comments POC-GLUCOSE METER 116 mg/dL 70-110 H : TESTED A T [facility] [address] (BEAKER) (test code = AVINASH Dunn [facility], 1538) [address]: Technical Adjuster/Techni smiley ID = [id number] for Teresa Rose BASIC METABOLIC [id number] 05:42:31 Test Item Value Reference Range Interpretation Comments SODIUM (BEAKER) 141 meq/L 136-145 (test code = 381) POTASSIUM 5.1 meq/L 3.5-5.1 (BEAKER) (test code = 379) CHLORIDE (BEAKER) 102 meq/L 98-107 (test code = 382) CO2 (BEAKER) 25 meq/L 22-29 (test code = 355) BLOOD UREA 79 mg/dL 7-21 H NITROGEN (BEAKER) (test code = 354) CREATININE 2.36 mg/dL 0.57-1.25 H (BEAKER) (test code = 358) GLUCOSE RANDOM 106 mg/dL 70-105 H (BEAKER) (test code = 652) CALCIUM (BEAKER) 9.7 mg/dL 8.4-10.2 (test code = 697) EGFR (BEAKER) 25 Interpretatio n of eGFR (test code = [...] not appl icable for dialysis patien ts Technical Adjuster ID - [id number] 05:40:46 Test Item Value Reference Range Interpretation Comments MAGNESIUM (BEAKER) (test code = 2.9 mg/dL 1.6-2.6 H 627) Technical Adjuster ID - [id number] 05:40:46 Test Item Value Reference Range Interpretation Comments PHOSPHORUS (BEAKER) (test code = 6.5 mg/dL 2.3-4.7 H 604) Technical Adjuster ID - [id number] W/PLT COUNT & AUTO [id number] 05:38:35 Test Item Value Reference Range Interpretation Comments WHITE BLOOD CELL COUNT (BEAKER) 13.2 K/ L 3.5-10.5 H (test code = 775) RED BLOOD CELL COUNT (BEAKER) 4.18 M/ L 3.93-5.22 (test code = 761) HEMOGLOBIN (BEAKER) (test code = 13.0 GM/DL 11.2-15.7 410) HEMATOCRIT (BEAKER) (test code = 41.0 % 34.1-44.9 411) MEAN CORPUSCULAR VOLUME (BEAKER) 98 fL 79-95 H (test code = 753) MEAN CORPUSCULAR HEMOGLOBIN 31.1 pg 25.6-32.2 (BEAKER) (test code = 751) MEAN CORPUSCULAR HEMOGLOBIN CONC 31.7 GM/DL 32.2-35.5 L (BEAKER) (test code = 752) RED CELL DISTRIBUTION WIDTH 14.1 % 11.7-14.4 (BEAKER) (test code = 412) PLATELET COUNT (BEAKER) (test 283 K/CU MM 150-450 code = 756) MEAN PLATELET VOLUME (BEAKER) 9.3 fL 9.4-12.3 L (test code = 754) NUCLEATED RED BLOOD CELLS 0 /100 WBC 0-0 (BEAKER) (test code = 413) NEUTROPHILS RELATIVE PERCENT 75 % (BEAKER) (test code = 429) LYMPHOCYTES RELATIVE PERCENT 13 % (BEAKER) (test code = 430) MONOCYTES RELATIVE PERCENT 10 % (BEAKER) (test code = 431) EOSINOPHILS RELATIVE PERCENT 1 % (BEAKER) (test code = 432) BASOPHILS RELATIVE PERCENT 1 % (BEAKER) (test code = 437) NEUTROPHILS ABSOLUTE COUNT 9.92 K/ L 1.56-6.13 H (BEAKER) (test code = 670) LYMPHOCYTES ABSOLUTE COUNT 1.64 K/ L 1.18-3.74 (BEAKER) (test code = 414) MONOCYTES ABSOLUTE COUNT (BEAKER) 1.36 K/ L 0.24-0.36 H (test code = 415) EOSINOPHILS ABSOLUTE COUNT 0.10 K/ L 0.04-0.36 (BEAKER) (test code = 416) BASOPHILS ABSOLUTE COUNT (BEAKER) 0.07 K/ L 0.01-0.08 (test code = 417) IMMATURE GRANULOCYTES-RELATIVE 0.50 % 0.00-1.00 PERCENT (BEAKER) (test code = 2801) POCT-GLUCOSE [id number] 23:35:25 Test Item Value Reference Range Interpretation Comments POC-GLUCOSE METER 135 mg/dL 70-110 H : TESTED A T [facility] 6720 (BEAKER) (test code = [facility], 1538) [address]: Technical Adjuster/Techni smiley ID = [id number] for Teresa Rose POCT-GLUCOSE [id number] 17:28:48 Test Item Value Reference Range Interpretation Comments POC-GLUCOSE METER 101 mg/dL 70-110 : TESTED A T [facility] 6720 (BEAKER) (test code = [facility], 1538) 98262: Technical Adjuster/Techni smiley ID = [id number] for CIRA HUMPHREY BLOOD [id number] 17:00:30 Test Item Value Reference Range Interpretation Comments CULTURE (BEAKER) (test No growth in 5 days code = 1095) BLOOD [id number] 17:00:30 Test Item Value Reference Range Interpretation Comments CULTURE (BEAKER) (test No growth in 5 days code = 1095) XR ABDOMEN/KUB 1 VIEW [id number] 14:17:07 [facility] : 1975 Sex: FXR ABDOMEN/KUB 1 VIEW PORTABLETECHNIQUE: Supine radiograph(s) of the abdomen and pelvis.HISTORY: corpak placementCOMPARISON: 12/04/2022IMPRESSION:Lines and tubes: Enteric tube is seen with tip in the stomachElectronically Signed By: Sarah Carrera11/05/2022 14:19 CDTWorkstation Name: [id number] 12:53:33 Test Item Value Reference Range Interpretation Comments POC-GLUCOSE METER 88 mg/dL 70-110 : TESTED A T [facility] 6720 (BEAKER) (test code = [facility], 1538) [address]: Technical Adjuster/Techni smiley ID = [id number] for CIRA ROLAND POCT-GLUCOSE [id number] 06:25:50 Test Item Value Reference Range Interpretation Comments POC-GLUCOSE METER 110 mg/dL 70-110 : TESTED A T [facility] 6720 (BEAKER) (test code = [facility], 1538) 287[address]: Technical Adjuster/Techni smiley ID = [id number] for NADEGE IVEY BASIC METABOLIC [id number] 04:16:53 Test Item Value Reference Range Interpretation Comments SODIUM (BEAKER) 144 meq/L 136-145 (test code = 381) POTASSIUM 4.9 meq/L 3.5-5.1 (BEAKER) (test code = 379) CHLORIDE (BEAKER) 102 meq/L 98-107 (test code = 382) CO2 (BEAKER) 30 meq/L 22-29 H (test code = 355) BLOOD UREA 67 mg/dL 7-21 H NITROGEN (BEAKER) (test code = 354) CREATININE 1.47 mg/dL 0.57-1.25 H (BEAKER) (test code = 358) GLUCOSE RANDOM 104 mg/dL 70-105 (BEAKER) (test code = 652) CALCIUM (BEAKER) 10.1 mg/dL 8.4-10.2 (test code = 697) EGFR (BEAKER) 44 Interpretatio n of eGFR (test code = [...] not appl icable for dialysis patien ts Technical Adjuster ID - DAMIÁN [id number] 04:16:53 Test Item Value Reference Range Interpretation Comments MAGNESIUM (BEAKER) (test code = 2.8 mg/dL 1.6-2.6 H 627) Technical Adjuster ID - DAMIÁN [id number] 04:16:53 Test Item Value Reference Range Interpretation Comments PHOSPHORUS (BEAKER) (test code = 5.7 mg/dL 2.3-4.7 H 604) Technical Adjuster ID - DAMIÁN WCBC W/PLT COUNT & AUTO [id number] 03:44:05 Test Item Value Reference Range Interpretation Comments WHITE BLOOD CELL COUNT (BEAKER) 11.9 K/ L 3.5-10.5 H (test code = 775) RED BLOOD CELL COUNT (BEAKER) 4.56 M/ L 3.93-5.22 (test code = 761) HEMOGLOBIN (BEAKER) (test code = 14.3 GM/DL 11.2-15.7 410) HEMATOCRIT (BEAKER) (test code = 44.1 % 34.1-44.9 411) MEAN CORPUSCULAR VOLUME (BEAKER) 97 fL 79-95 H (test code = 753) MEAN CORPUSCULAR HEMOGLOBIN 31.4 pg 25.6-32.2 (BEAKER) (test code = 751) MEAN CORPUSCULAR HEMOGLOBIN CONC 32.4 GM/DL 32.2-35.5 (BEAKER) (test code = 752) RED CELL DISTRIBUTION WIDTH 14.3 % 11.7-14.4 (BEAKER) (test code = 412) PLATELET COUNT (BEAKER) (test 297 K/CU MM 150-450 code = 756) MEAN PLATELET VOLUME (BEAKER) 9.0 fL 9.4-12.3 L (test code = 754) NUCLEATED RED BLOOD CELLS 0 /100 WBC 0-0 (BEAKER) (test code = 413) NEUTROPHILS RELATIVE PERCENT 67 % (BEAKER) (test code = 429) LYMPHOCYTES RELATIVE PERCENT 21 % (BEAKER) (test code = 430) MONOCYTES RELATIVE PERCENT 11 % (BEAKER) (test code = 431) EOSINOPHILS RELATIVE PERCENT 1 % (BEAKER) (test code = 432) BASOPHILS RELATIVE PERCENT 1 % (BEAKER) (test code = 437) NEUTROPHILS ABSOLUTE COUNT 7.91 K/ L 1.56-6.13 H (BEAKER) (test code = 670) LYMPHOCYTES ABSOLUTE COUNT 2.46 K/ L 1.18-3.74 (BEAKER) (test code = 414) MONOCYTES ABSOLUTE COUNT (BEAKER) 1.28 K/ L 0.24-0.36 H (test code = 415) EOSINOPHILS ABSOLUTE COUNT 0.10 K/ L 0.04-0.36 (BEAKER) (test code = 416) BASOPHILS ABSOLUTE COUNT (BEAKER) 0.09 K/ L 0.01-0.08 H (test code = 417) IMMATURE GRANULOCYTES-RELATIVE 0.30 % 0.00-1.00 PERCENT (BEAKER) (test code = 2801) POCT-GLUCOSE [id number] 23:25:33 Test Item Value Reference Range Interpretation Comments POC-GLUCOSE METER 114 mg/dL 70-110 H : TESTED A T [facility] 6720 (BEAKER) (test code = [facility] Medication Review [facility], [facility]) [address]: Technical Adjuster/Techni smiley ID = [id number] for NADEGE IVEY [id number] 18:58:11 Test Item Value Reference Range Interpretation Comments SODIUM (BEAKER) (test code = 381) 142 meq/L 136-145 Technical Adjuster ID - JSPOCT-GLUCOSE [id number] 17:04:52 Test Item Value Reference Range Interpretation Comments POC-GLUCOSE METER 142 mg/dL 70-110 H : TESTED A T [facility] 6720 (BEAKER) (test code = [facility] Medication Review [facility], 153) [address]: Technical Adjuster/Techni smiley ID = [id number] for MANDA ESPARZA POCT-GLUCOSE [id number] 12:43:34 Test Item Value Reference Range Interpretation Comments POC-GLUCOSE METER 127 mg/dL 70-110 H : TESTED A T [facility] 6720 (BEAKER) (test code = AVINASH Dunn [facility], 1538) 27[address]: Technical Adjuster/Techni smiley ID = [id number] for MANDA ESPARZA [id number] 12:42:31 Test Item Value Reference Range Interpretation Comments SODIUM (BEAKER) (test code = 381) 141 meq/L 136-145 Technical Adjuster ID - JSPOCT-GLUCOSE [id number] 05:53:11 Test Item Value Reference Range Interpretation Comments POC-GLUCOSE METER 122 mg/dL 70-110 H : TESTED A T [facility] 6720 (BEAKER) (test code = [facility] Mona [facility], 1538) [address]: Technical Adjuster/Techni smiley ID = [id number] for NADEGE IVEY [id number] 04:57:58 Test Item Value Reference Range Interpretation Comments PHOSPHORUS (BEAKER) 6.1 mg/dL 2.3-4.7 H Specimen slightly (test code = 604) hemolyzed Technical Adjuster ID - DAMIÁN WBASIC METABOLIC [id number] 04:57:58 Test Item Value Reference Range Interpretation Comments SODIUM (BEAKER) 142 meq/L 136-145 (test code = 381) POTASSIUM 4.7 meq/L 3.5-5.1 Specimen slight ly (BEAKER) (test hemolyzed code = 379) CHLORIDE (BEAKER) 100 meq/L 98-107 (test code = 382) CO2 (BEAKER) 27 meq/L 22-29 (test code = 355) BLOOD UREA 54 mg/dL 7-21 H NITROGEN (BEAKER) (test code = 354) CREATININE 1.36 mg/dL 0.57-1.25 H Specimen slight ly (BEAKER) (test hemolyzed code = 358) GLUCOSE RANDOM 98 mg/dL 70-105 (BEAKER) (test code = 652) CALCIUM (BEAKER) 10.3 mg/dL 8.4-10.2 H (test code = 697) EGFR (BEAKER) 49 Interpretatio n of eGFR (test code = [...] not appl icable for dialysis patien ts Technical Adjuster [employer] [id number] 04:57:57 Test Item Value Reference Range Interpretation Comments MAGNESIUM (BEAKER) 2.7 mg/dL 1.6-2.6 H Specimen slightly (test code = 627) hemolyzed Technical Adjuster [employer] WCBC W/PLT COUNT & AUTO [id number] 04:36:11 Test Item Value Reference Range Interpretation Comments WHITE BLOOD CELL COUNT (BEAKER) 11.3 K/ L 3.5-10.5 H (test code = 775) RED BLOOD CELL COUNT (BEAKER) 4.54 M/ L 3.93-5.22 (test code = 761) HEMOGLOBIN (BEAKER) (test code = 14.4 GM/DL 11.2-15.7 410) HEMATOCRIT (BEAKER) (test code = 43.7 % 34.1-44.9 411) MEAN CORPUSCULAR VOLUME (BEAKER) 96 fL 79-95 H (test code = 753) MEAN CORPUSCULAR HEMOGLOBIN 31.7 pg 25.6-32.2 (BEAKER) (test code = 751) MEAN CORPUSCULAR HEMOGLOBIN CONC 33.0 GM/DL 32.2-35.5 (BEAKER) (test code = 752) RED CELL DISTRIBUTION WIDTH 14.7 % 11.7-14.4 H (BEAKER) (test code = 412) PLATELET COUNT (BEAKER) (test 324 K/CU MM 150-450 code = 756) MEAN PLATELET VOLUME (BEAKER) 9.5 fL 9.4-12.3 (test code = 754) NUCLEATED RED BLOOD CELLS 0 /100 WBC 0-0 (BEAKER) (test code = 413) NEUTROPHILS RELATIVE PERCENT 69 % (BEAKER) (test code = 429) LYMPHOCYTES RELATIVE PERCENT 17 % (BEAKER) (test code = 430) MONOCYTES RELATIVE PERCENT 12 % (BEAKER) (test code = 431) EOSINOPHILS RELATIVE PERCENT 0 % (BEAKER) (test code = 432) BASOPHILS RELATIVE PERCENT 1 % (BEAKER) (test code = 437) NEUTROPHILS ABSOLUTE COUNT 7.84 K/ L 1.56-6.13 H (BEAKER) (test code = 670) LYMPHOCYTES ABSOLUTE COUNT 1.95 K/ L 1.18-3.74 (BEAKER) (test code = 414) MONOCYTES ABSOLUTE COUNT (BEAKER) 1.37 K/ L 0.24-0.36 H (test code = 415) EOSINOPHILS ABSOLUTE COUNT 0.05 K/ L 0.04-0.36 (BEAKER) (test code = 416) BASOPHILS ABSOLUTE COUNT (BEAKER) 0.07 K/ L 0.01-0.08 (test code = 417) IMMATURE GRANULOCYTES-RELATIVE 0.50 % 0.00-1.00 PERCENT (BEAKER) (test code = 2801) POCT-GLUCOSE [id number] 00:26:17 Test Item Value Reference Range Interpretation Comments POC-GLUCOSE METER 117 mg/dL 70-110 H : TESTED A T [facility] 6720 (BEAKER) (test code = [facility], 1538) [address]: Technical Adjuster/Techni smiley ID = [id number] for NADEGE IVEY [id number] 19:29:04 Test Item Value Reference Range Interpretation Comments SODIUM (BEAKER) (test code = 381) 141 meq/L 136-145 Technical Adjuster ID - ADMINPOCT-GLUCOSE [id number] 16:58:24 Test Item Value Reference Range Interpretation Comments POC-GLUCOSE METER 142 mg/dL 70-110 H : TESTED A T [facility] 6720 (BEAKER) (test code = [facility], 1538) 96[address]: Technical Adjuster/Techni smiley ID = [id number] for MANDA ESPARZA XR ABDOMEN/KUB 1 VIEW [id number] 13:01:43 [facility] 1975 Sex: FAbdomen , one viewHistory:Feeding tube placementComparison:10/30/2022Findings:Tip of the feeding tube is near the pylorus. Nonobstructive bowel gaspattern. Cholecystectomy clips within the right upper quadrant.Electronically Signed By: Kam Vigil MD11/03/2022 13:03 CDTWorkstation Name: [id number] 12:39:24 Test Item Value Reference Range Interpretation Comments SODIUM (BEAKER) (test code = 381) 142 meq/L 136-145 POCT-GLUCOSE [id number] 12:05:03 Test Item Value Reference Range Interpretation Comments POC-GLUCOSE METER 118 mg/dL 70-110 H : TESTED A T [facility] 6720 (BEAKER) (test code = [facility], 1538) [address]: Technical Adjuster/Techni smiley ID = [id number] for MANDA ESPARZA [id number] 06:17:11 Test Item Value Reference Range Interpretation Comments PHOSPHORUS (BEAKER) (test code = 4.1 mg/dL 2.3-4.7 604) Technical Adjuster ID - DAMIÁN WBASIC METABOLIC [id number] 06:17:10 Test Item Value Reference Range Interpretation Comments SODIUM (BEAKER) 141 meq/L 136-145 (test code = 381) POTASSIUM 4.3 meq/L 3.5-5.1 (BEAKER) (test code = 379) CHLORIDE (BEAKER) 98 meq/L 98-107 (test code = 382) CO2 (BEAKER) 28 meq/L 22-29 (test code = 355) BLOOD UREA 32 mg/dL 7-21 H NITROGEN (BEAKER) (test code = 354) CREATININE 0.94 mg/dL 0.57-1.25 (BEAKER) (test code = 358) GLUCOSE RANDOM 88 mg/dL 70-105 (BEAKER) (test code = 652) CALCIUM (BEAKER) 10.2 mg/dL 8.4-10.2 (test code = 697) EGFR (BEAKER) 76 Interpretatio n of eGFR (test code = [...] not appl icable for dialysis patien ts Technical Adjuster ID - DAMIÁN [id number] 06:17:10 Test Item Value Reference Range Interpretation Comments MAGNESIUM (BEAKER) (test code = 2.4 mg/dL 1.6-2.6 627) Technical Adjuster ID - DAMIÁN WPOCT-GLUCOSE [id number] 05:50:21 Test Item Value Reference Range Interpretation Comments POC-GLUCOSE METER 121 mg/dL 70-110 H : TESTED A T [facility] 6720 (BEAKER) (test code = [place], 1538) [address]: Technical Adjuster/Techni smiley ID = [id number] for NADEGE IVEY CBC W/PLT COUNT & AUTO [id number] 05:25:22 Test Item Value Reference Range Interpretation Comments WHITE BLOOD CELL COUNT (BEAKER) 9.4 K/ L 3.5-10.5 (test code = 775) RED BLOOD CELL COUNT (BEAKER) 4.53 M/ L 3.93-5.22 (test code = 761) HEMOGLOBIN (BEAKER) (test code = 14.1 GM/DL 11.2-15.7 410) HEMATOCRIT (BEAKER) (test code = 43.1 % 34.1-44.9 411) MEAN CORPUSCULAR VOLUME (BEAKER) 95 fL 79-95 (test code = 753) MEAN CORPUSCULAR HEMOGLOBIN 31.1 pg 25.6-32.2 (BEAKER) (test code = 751) MEAN CORPUSCULAR HEMOGLOBIN CONC 32.7 GM/DL 32.2-35.5 (BEAKER) (test code = 752) RED CELL DISTRIBUTION WIDTH 14.9 % 11.7-14.4 H (BEAKER) (test code = 412) PLATELET COUNT (BEAKER) (test 310 K/CU MM 150-450 code = 756) MEAN PLATELET VOLUME (BEAKER) 9.4 fL 9.4-12.3 (test code = 754) NUCLEATED RED BLOOD CELLS 0 /100 WBC 0-0 (BEAKER) (test code = 413) NEUTROPHILS RELATIVE PERCENT 70 % (BEAKER) (test code = 429) LYMPHOCYTES RELATIVE PERCENT 17 % (BEAKER) (test code = 430) MONOCYTES RELATIVE PERCENT 12 % (BEAKER) (test code = 431) EOSINOPHILS RELATIVE PERCENT 1 % (BEAKER) (test code = 432) BASOPHILS RELATIVE PERCENT 0 % (BEAKER) (test code = 437) NEUTROPHILS ABSOLUTE COUNT 6.54 K/ L 1.56-6.13 H (BEAKER) (test code = 670) LYMPHOCYTES ABSOLUTE COUNT 1.60 K/ L 1.18-3.74 (BEAKER) (test code = 414) MONOCYTES ABSOLUTE COUNT (BEAKER) 1.13 K/ L 0.24-0.36 H (test code = 415) EOSINOPHILS ABSOLUTE COUNT 0.05 K/ L 0.04-0.36 (BEAKER) (test code = 416) BASOPHILS ABSOLUTE COUNT (BEAKER) 0.04 K/ L 0.01-0.08 (test code = 417) IMMATURE GRANULOCYTES-RELATIVE 0.30 % 0.00-1.00 PERCENT (BEAKER) (test code = 2801) POCT-GLUCOSE [id number] 23:36:51 Test Item Value Reference Range Interpretation Comments POC-GLUCOSE METER 116 mg/dL 70-110 H : TESTED A T [facility] 6720 (BEAKER) (test code = [facility] [place], 1538) [address]: Technical Adjuster/Techni smiley ID = [id number] for NADEGE IVEY [id number] 18:30:49 Test Item Value Reference Range Interpretation Comments SODIUM (BEAKER) (test code = 381) 141 meq/L 136-145 Technical Adjuster ID - ADMINPOCT-GLUCOSE [id number] 17:57:14 Test Item Value Reference Range Interpretation Comments POC-GLUCOSE METER 118 mg/dL 70-110 H : TESTED A T [facility] 6720 (BEAKER) (test code = [facility] [place], 1538) [address]: Technical Adjuster/Techni smiley ID = [id number] for An Donna lucas MRSA [id number] 14:39:15 Test Item Value Reference Range Interpretation Comments CULTURE (BEAKER) (test code No MRSA isolated = 1095) [id number] 13:35:39 Test Item Value Reference Range Interpretation Comments SODIUM (BEAKER) (test code = 381) 139 meq/L 136-145 Technical Adjuster ID - BVPOCT-GLUCOSE [id number] 13:06:41 Test Item Value Reference Range Interpretation Comments POC-GLUCOSE METER 134 mg/dL 70-110 H : TESTED A T [facility] 6720 (BEAKER) (test code = [facility] [place], 1538) [address]: Technical Adjuster/Techni smiley ID = [id number] for An Donna lucas CT BRAIN WITHOUT IV [id number] 13:00:59 [facility] : 1975 Sex: FCT BRAIN WITHOUT IV CONTRASTINDICATION: Mental status change, unknown causeCOMPARISON: 10/30/2022TECHNIQUE: Noncontrast axial CT imaging of the brain and skull. DOSE REDUCTION: Dose modulation, iterative reconstruction, and/orweight-based adjustment of the mA/kV was utilized to reduce theradiation dose to as low as reasonably achievable.FINDINGS:No significant interval change in previously described intraparenchymalhematoma centered at the right basal ganglia with intraventricularextent and trace acute blood products within the dependent portions ofthe lateral ventricles. Midline shift is increased, formerly 4 mm andnow 6-7 mm. There is effacement of the right lateral ventricle withearly entrapment of the left lateral ventricle and leftward subfalcineherniation. Orbits are within normal limits.No obstructive paranasal sinus disease.IMPRESSION:Increase mass effect related to previously described rightin traparenchymal hematoma with intraventricular extent, formerly with 4mm leftward midline shift and now 6-7 mm. New leftward subfalcineherniation. Early entrapment of the left lateral ventricle.If thereis persistent clinical concern for intracranial pathology, MRexamination is recommended for further c haracterization.Electronically Signed By: Alexandra Liang11/02/2022 13:03 CDTWorkstation Name: [id number] 06:29:29 Test Item Value Reference Range Interpretation Comments SODIUM (BEAKER) (test code = 381) 139 meq/L 136-145 BASIC METABOLIC [id number] 06:29:28 Test Item Value Reference Range Interpretation Comments SODIUM (BEAKER) 139 meq/L 136-145 (test code = 381) POTASSIUM 4.3 meq/L 3.5-5.1 (BEAKER) (test code = 379) CHLORIDE (BEAKER) 98 meq/L 98-107 (test code = 382) CO2 (BEAKER) 31 meq/L 22-29 H (test code = 355) BLOOD UREA 28 mg/dL 7-21 H NITROGEN (BEAKER) (test code = 354) CREATININE 0.91 mg/dL 0.57-1.25 (BEAKER) (test code = 358) GLUCOSE RANDOM 113 mg/dL 70-105 H (BEAKER) (test code = 652) CALCIUM (BEAKER) 9.9 mg/dL 8.4-10.2 (test code = 697) EGFR (BEAKER) 79 Interpretatio n of eGFR (test code = [...] not appl icable for dialysis patien ts Technical Adjuster ID - [id number] 06:29:28 Test Item Value Reference Range Interpretation Comments MAGNESIUM (BEAKER) (test code = 2.2 mg/dL 1.6-2.6 627) Technical Adjuster ID - [id number] 06:29:28 Test Item Value Reference Range Interpretation Comments PHOSPHORUS (BEAKER) (test code = 3.8 mg/dL 2.3-4.7 604) Technical Adjuster ID - MARCOPOCT-GLUCOSE [id number] 06:21:55 Test Item Value Reference Range Interpretation Comments POC-GLUCOSE METER 125 mg/dL 70-110 H : TESTED A T [facility] 6720 (BEAKER) (test code = [place] [place], 1538) [address]: Technical Adjuster/Techni smiley ID = [id number] for NADEGE IVEY CBC W/PLT COUNT & AUTO [id number] 06:08:00 Test Item Value Reference Range Interpretation Comments WHITE BLOOD CELL COUNT (BEAKER) 10.0 K/ L 3.5-10.5 (test code = 775) RED BLOOD CELL COUNT (BEAKER) 4.13 M/ L 3.93-5.22 (test code = 761) HEMOGLOBIN (BEAKER) (test code = 12.8 GM/DL 11.2-15.7 410) HEMATOCRIT (BEAKER) (test code = 39.0 % 34.1-44.9 411) MEAN CORPUSCULAR VOLUME (BEAKER) 94 fL 79-95 (test code = 753) MEAN CORPUSCULAR HEMOGLOBIN 31.0 pg 25.6-32.2 (BEAKER) (test code = 751) MEAN CORPUSCULAR HEMOGLOBIN CONC 32.8 GM/DL 32.2-35.5 (BEAKER) (test code = 752) RED CELL DISTRIBUTION WIDTH 15.2 % 11.7-14.4 H (BEAKER) (test code = 412) PLATELET COUNT (BEAKER) (test 285 K/CU MM 150-450 code = 756) MEAN PLATELET VOLUME (BEAKER) 10.0 fL 9.4-12.3 (test code = 754) NUCLEATED RED BLOOD CELLS 0 /100 WBC 0-0 (BEAKER) (test code = 413) NEUTROPHILS RELATIVE PERCENT 73 % (BEAKER) (test code = 429) LYMPHOCYTES RELATIVE PERCENT 13 % (BEAKER) (test code = 430) MONOCYTES RELATIVE PERCENT 13 % (BEAKER) (test code = 431) EOSINOPHILS RELATIVE PERCENT 0 % (BEAKER) (test code = 432) BASOPHILS RELATIVE PERCENT 0 % (BEAKER) (test code = 437) NEUTROPHILS ABSOLUTE COUNT 7.31 K/ L 1.56-6.13 H (BEAKER) (test code = 670) LYMPHOCYTES ABSOLUTE COUNT 1.31 K/ L 1.18-3.74 (BEAKER) (test code = 414) MONOCYTES ABSOLUTE COUNT (BEAKER) 1.25 K/ L 0.24-0.36 H (test code = 415) EOSINOPHILS ABSOLUTE COUNT 0.03 K/ L 0.04-0.36 L (BEAKER) (test code = 416) BASOPHILS ABSOLUTE COUNT (BEAKER) 0.04 K/ L 0.01-0.08 (test code = 417) IMMATURE GRANULOCYTES-RELATIVE 0.50 % 0.00-1.00 PERCENT (BEAKER) (test code = 2801) POCT-GLUCOSE [id number] 00:19:06 Test Item Value Reference Range Interpretation Comments POC-GLUCOSE METER 99 mg/dL 70-110 : TESTED A T [facility] 6720 (BEAKER) (test code = [facility], 1538) [address]: Technical Adjuster/Techni smiley ID = [id number] for NADEGE MORALES [id number] 18:45:56 Test Item Value Reference Range Interpretation Comments SODIUM (BEAKER) (test code = 381) 140 meq/L 136-145 Technical Adjuster ID - ADMPOCT-GLUCOSE [id number] 18:39:21 Test Item Value Reference Range Interpretation Comments POC-GLUCOSE METER 121 mg/dL 70-110 H : TESTED A T [facility] 6720 (BEAKER) (test code [facility], = 1538) [address]: Technical Adjuster/Techni smiley ID = [id number] for Kristin sLatonia [id number] 14:24:36 Test Item Value Reference Range Interpretation Comments SODIUM (BEAKER) (test code = 381) 140 meq/L 136-145 Technical Adjuster ID - [id number] 10:06:02 Test Item Value Reference Range Interpretation Comments POTASSIUM (BEAKER) (test code = 3.8 meq/L 3.5-5.1 379) Technical Adjuster ID - [id number] 10:06:01 Test Item Value Reference Range Interpretation Comments MAGNESIUM (BEAKER) (test code = 2.3 mg/dL 1.6-2.6 627) Technical Adjuster ID - ADMVANCOMYCIN LEVEL, [id number] 09:59:39 Test Item Value Reference Range Interpretation Comments VANCOMYCIN TROUGH (BEAKER) (test 8.4 ug/mL 10.0-20.0 L code = 522) Technical Adjuster ID - [id number] 04:21:26 Test Item Value Reference Range Interpretation Comments MAGNESIUM (BEAKER) (test code = 2.0 mg/dL 1.6-2.6 627) Technical Adjuster ID - [id number] 04:21:26 Test Item Value Reference Range Interpretation Comments PHOSPHORUS (BEAKER) (test code = 3.2 mg/dL 2.3-4.7 604) Technical Adjuster ID - ADMINBASIC METABOLIC [id number] 04:21:25 Test Item Value Reference Range Interpretation Comments SODIUM (BEAKER) 138 meq/L 136-145 (test code = 381) POTASSIUM 3.7 meq/L 3.5-5.1 (BEAKER) (test code = 379) CHLORIDE (BEAKER) 101 meq/L 98-107 (test code = 382) CO2 (BEAKER) 25 meq/L 22-29 (test code = 355) BLOOD UREA 21 mg/dL 7-21 NITROGEN (BEAKER) (test code = 354) CREATININE 1.08 mg/dL 0.57-1.25 (BEAKER) (test code = 358) GLUCOSE RANDOM 111 mg/dL 70-105 H (BEAKER) (test code = 652) CALCIUM (BEAKER) 9.3 mg/dL 8.4-10.2 (test code = 697) EGFR (BEAKER) 64 Interpretatio n of eGFR (test code = mL/min/1.73 values Stage D escription 1092) sq m Result G1 Ceci l [...] not appl icable for dialysis patien ts Technical Adjuster ID - ADMINCBC W/PLT COUNT & AUTO [id number] 03:36:42 Test Item Value Reference Range Interpretation Comments WHITE BLOOD CELL COUNT (BEAKER) 12.0 K/ L 3.5-10.5 H (test code = 775) RED BLOOD CELL COUNT (BEAKER) 3.91 M/ L 3.93-5.22 L (test code = 761) HEMOGLOBIN (BEAKER) (test code = 12.0 GM/DL 11.2-15.7 410) HEMATOCRIT (BEAKER) (test code = 35.9 % 34.1-44.9 411) MEAN CORPUSCULAR VOLUME (BEAKER) 92 fL 79-95 (test code = 753) MEAN CORPUSCULAR HEMOGLOBIN 30.7 pg 25.6-32.2 (BEAKER) (test code = 751) MEAN CORPUSCULAR HEMOGLOBIN CONC 33.4 GM/DL 32.2-35.5 (BEAKER) (test code = 752) RED CELL DISTRIBUTION WIDTH 14.8 % 11.7-14.4 H (BEAKER) (test code = 412) PLATELET COUNT (BEAKER) (test 202 K/CU MM 150-450 code = 756) MEAN PLATELET VOLUME (BEAKER) 9.3 fL 9.4-12.3 L (test code = 754) NUCLEATED RED BLOOD CELLS 0 /100 WBC 0-0 (BEAKER) (test code = 413) NEUTROPHILS RELATIVE PERCENT 82 % (BEAKER) (test code = 429) LYMPHOCYTES RELATIVE PERCENT 8 % (BEAKER) (test code = 430) MONOCYTES RELATIVE PERCENT 9 % (BEAKER) (test code = 431) EOSINOPHILS RELATIVE PERCENT 0 % (BEAKER) (test code = 432) BASOPHILS RELATIVE PERCENT 0 % (BEAKER) (test code = 437) NEUTROPHILS ABSOLUTE COUNT 9.79 K/ L 1.56-6.13 H (BEAKER) (test code = 670) LYMPHOCYTES ABSOLUTE COUNT 0.99 K/ L 1.18-3.74 L (BEAKER) (test code = 414) MONOCYTES ABSOLUTE COUNT (BEAKER) 1.06 K/ L 0.24-0.36 H (test code = 415) EOSINOPHILS ABSOLUTE COUNT 0.04 K/ L 0.04-0.36 (BEAKER) (test code = 416) BASOPHILS ABSOLUTE COUNT (BEAKER) 0.03 K/ L 0.01-0.08 (test code = 417) IMMATURE GRANULOCYTES-RELATIVE 0.30 % 0.00-1.00 PERCENT (BEAKER) (test code = 2801) [id number] 00:11:29 Test Item Value Reference Range Interpretation Comments SODIUM (BEAKER) (test code = 381) 139 meq/L 136-145 Technical Adjuster ID - [id number] 18:25:44 Test Item Value Reference Range Interpretation Comments SODIUM (BEAKER) (test code = 381) 139 meq/L 136-145 Technical Adjuster ID - esauSARS-COV2/INFLUENZA/RSV [id number] 14:03:24 Test Item Value Reference Range Interpretation Comments SARS-COV2/RT-PCR Negative Negative The SARS-Co V-2 target (test code = nucleic acids a re not [id number]) detected in thi s specimen. Negat yesika results do not preclude SARS-CoV-2 infe ction and should not be u sed as the sole basis for patient management deci sions. Negative result s must be combined with c linical observations, p atient history, and epidemiological information. A false negative result may occur if a specimen i s improperly maldonado ected, transported or handled. This SARS CoV-2 test is a rapid, real-marichuy e RT-PCR test intended f or the qualitative det ection of nucleic acid fr om SARS-CoV-2 in a nasopharyngeal swab specimen collec markie from individuals amanda pected of COVID-19 by the [facility] prov ider. INFLUENZA A RT-PCR Negative Negative The Flu A target nucleic (test code = acids are not d etected in 19100421) this specimen. INFLUENZA B RT-PCR Negative Negative The Flu B target nucleic (test code = acids are not d etected in 19100422) this specimen. RSV RT-PCR (test Negative Negative The RSV tar get nucleic code = 0280607) acids are no t detected in this specimen. The presence of SARS-CoV-2/FLU/RSV viral nucleic acids cannot rule out co- infections or disease caused by other viral or bacterial pathogens. As with any molecular test, mutations within the target regions of the Xpert Xpress SARS-CoV-2/Flu/RSV test could affect primer and/or probe binding resulting in failure to detect the presence of virus or the virus being detected less predictably. False negative results may occur if the virus is present at levels below the analytical limit of detection in thisspecimen.This Xpert Xpress SARS-CoV-2/Flu/RSV test is a rapid, real-time RT-PCR test intended for the qualitative detection of nucleic acid from Xpert Xpress SARS-CoV-2/Flu/RSV in a nasopharyngeal swabspecimen collected from individuals suspected of Xpert Xpress SARS-CoV-2/Flu/RSV by their healthcareprovider. Results from huong Xpert Xpress SARS-CoV-2/Flu/RSV test should be correlated with the clinical history, epidemiological data, and other data available to the clinician evaluating the patient. Viral nucleic acid may persist in vivo, independent of virus viability. Detection of analyte target(s)does not imply that the corresponding virus(es) are infectious or are the causative agents for clinical symptoms.This test has not been Food and Drug Administration (FDA) cleared or approved and has been authorized by FDA under an Emergency Use Authorization (EUA). This EUA will be effective until thedeclaration that circumstances exist justifying the authorization of the emergency use of in vitro diagnostic tests for detection and/or diagnosis of COVID-19 is terminated under Section 564(b)(2) of the Act or the EUA is revoked under Section 564(g) of the Act.Fact Sheet for Healthcare Providers:https ://www.in3Dgallery/Documents/Xpert%20Xpress%20SARS%20CoV-2/Fact%20Sheets/302-390 2%94GZJG-PKF-1%20HEALTHCARE%20PROVIDERS%20FACT%20SHEET.pdfFact Sheet for Healthcare Patients:https://www.in3Dgallery/Docum ents/Xpert%20Xpress%20SARS%20Cov-2/Fact%20Sheets/302-3801%85KBUK-UEA-0%20PATIENT %20FACT%20SHEET.[id number] 12:52:25 Test Item Value Reference Range Interpretation Comments SODIUM (BEAKER) (test code = 381) 135 meq/L 136-145 L Technical Adjuster ID - [id number] 12:52:24 Test Item Value Reference Range Interpretation Comments MAGNESIUM (BEAKER) (test code = 2.4 mg/dL 1.6-2.6 627) Technical Adjuster ID - esauPOCT-GLUCOSE [id number] 12:00:51 Test Item Value Reference Range Interpretation Comments POC-GLUCOSE METER 130 mg/dL 70-110 H : TESTED A T [facility] 6720 (BEAKER) (test code [facility], = 1538) [address]: Technical Adjuster/Techni smiley ID = [id number] for Latonia Connolly B-TYPE NATRIURETIC FACTOR (BNP)2022-10-31 10:43:21 Test Item Value Reference Range Interpretation Comments B-TYPE NATRIURETIC PEPTIDE (BEAKER) 568 pg/mL 0-100 H (test code = 700) Technical Adjuster ID - [id number] 05:07:29 Test Item Value Reference Range Interpretation Comments MAGNESIUM (BEAKER) (test code = 1.9 mg/dL 1.6-2.6 627) Technical Adjuster ID - [id number] 05:07:29 Test Item Value Reference Range Interpretation Comments PHOSPHORUS (BEAKER) (test code = 3.7 mg/dL 2.3-4.7 604) Technical Adjuster ID - ADMINBASIC METABOLIC [id number] 05:07:28 Test Item Value Reference Range Interpretation Comments SODIUM (BEAKER) 135 meq/L 136-145 L (test code = 381) POTASSIUM 4.1 meq/L 3.5-5.1 (BEAKER) (test code = 379) CHLORIDE (BEAKER) 106 meq/L 98-107 (test code = 382) CO2 (BEAKER) 18 meq/L 22-29 L (test code = 355) BLOOD UREA 13 mg/dL 7-21 NITROGEN (BEAKER) (test code = 354) CREATININE 1.22 mg/dL 0.57-1.25 (BEAKER) (test code = 358) GLUCOSE RANDOM 108 mg/dL 70-105 H (BEAKER) (test code = 652) CALCIUM (BEAKER) 8.4 mg/dL 8.4-10.2 (test code = 697) EGFR (BEAKER) 55 Interpretatio n of eGFR (test code = [...] not appl icable for dialysis patien ts Technical Adjuster ID - ADMINCBC W/PLT COUNT & AUTO [id number] 04:47:13 Test Item Value Reference Range Interpretation Comments WHITE BLOOD CELL COUNT (BEAKER) 12.8 K/ L 3.5-10.5 H (test code = 775) RED BLOOD CELL COUNT (BEAKER) 3.62 M/ L 3.93-5.22 L (test code = 761) HEMOGLOBIN (BEAKER) (test code = 11.4 GM/DL 11.2-15.7 410) HEMATOCRIT (BEAKER) (test code = 34.0 % 34.1-44.9 L 411) MEAN CORPUSCULAR VOLUME (BEAKER) 94 fL 79-95 (test code = 753) MEAN CORPUSCULAR HEMOGLOBIN 31.5 pg 25.6-32.2 (BEAKER) (test code = 751) MEAN CORPUSCULAR HEMOGLOBIN CONC 33.5 GM/DL 32.2-35.5 (BEAKER) (test code = 752) RED CELL DISTRIBUTION WIDTH 14.6 % 11.7-14.4 H (BEAKER) (test code = 412) PLATELET COUNT (BEAKER) (test 167 K/CU MM 150-450 code = 756) MEAN PLATELET VOLUME (BEAKER) 9.4 fL 9.4-12.3 (test code = 754) NUCLEATED RED BLOOD [...] (test code = 437) NEUTROPHILS ABSOLUTE COUNT 11.13 K/ L 1.56-6.13 H (BEAKER) (test code = 670) LYMPHOCYTES ABSOLUTE COUNT 0.83 K/ L 1.18-3.74 L (BEAKER) (test code = 414) MONOCYTES ABSOLUTE COUNT (BEAKER) 0.76 K/ L 0.24-0.36 H (test code = 415) EOSINOPHILS ABSOLUTE COUNT 0.02 K/ L 0.04-0.36 L (BEAKER) (test code = 416) BASOPHILS ABSOLUTE COUNT (BEAKER) 0.03 K/ L 0.01-0.08 (test code = 417) IMMATURE GRANULOCYTES-RELATIVE 0.40 % 0.00-1.00 PERCENT (BEAKER) (test code = 2801) [id number] 23:06:40 Test Item Value Reference Range Interpretation Comments SODIUM (BEAKER) (test code = 381) 133 meq/L 136-145 L Technical Adjuster ID - ADMINHIGH SENSITIVITY TROPONIN [id number] 22:59:43 Test Item Value Reference Range Interpretation Comments HIGH SENSITIVITY 92 pg/ml See_Comment H [Automated message] TROPONIN I (test code = The system which [id number]) generated this result transmitted ref erence range: <=17. Th e reference range was not used to int erpret this result as normal/abnormal . Technical Adjuster ID - ADMINThe [employer] SYSTEM[employer] TECHNICIAN STAT High Sensitivity Troponin-I results should be used in conjunction with other diagnostic information such as ECG, clinical observations and information, and patientsymptoms to aid in the diagnosis of PA. XR ABDOMEN/KUB 1 VIEW [id number] 18:54:45 [facility] 1975 Sex: FTECHNIQUE: XR ABDOMEN/KUB 1 VIEW PORTABLEINDICATION: corpak placement.COMPARISON: 10/29/2022FINDINGS:Feeding tube tip projecting over the body of the stomach. No specificevidence for bowel obstruction. Cholecystectomy clips are noted. Supineradiographs are insensitive for detection of free intraperitoneal ai r.IMPRESSION:Feeding tube tip projects over the body of the stomach.Electronically Signed By: Mo Soares10/30/2022 18:56 CDTWorkstation Name: [id number] SENSITIVITY TROPONIN [id number] 17:30:01 Test Item Value Reference Range Interpretation Comments HIGH SENSITIVITY 123 pg/ml See_Comment H [Automated message] TROPONIN I (test code The sy stem which = [id number]) generated this result transmitted ref erence range: <=17. Th e reference range was not used to int erpret this result as normal/abnormal . Technical Adjuster ID - BSThe ON SITE WASTEWATER SYSTEMS TECHNICIAN STAT High Sensitivity Troponin-I results should be used in conjunctionwith other diagnostic information such as ECG, clinical observations and information, and patient symptoms to aid in the diagnosis of PA.LACTIC ACID, [id number] 17:25:59 Test Item Value Reference Range Interpretation Comments LACTATE BLOOD ARTERIAL (2) 1.0 mmol/L 0.5-2.0 (BEAKER) (test code = 2874) Technical Adjuster ID - [id number] 17:21:36 Test Item Value Reference Range Interpretation Comments SODIUM (BEAKER) (test code = 381) 136 meq/L 136-145 Technical Adjuster ID - ADMINBLOOD GAS, [id number] 14:46:08 Test Item Value Reference Range Interpretation Comments PH ARTERIAL (BEAKER) (test code = 7.40 7.35-7.45 383) PCO2 ARTERIAL (BEAKER) (test code 28 mm Hg 35-45 L = 384) PO2 ARTERIAL (BEAKER) (test code 71 mm Hg 80-90 L = 385) O2 SATURATION ARTERIAL (BEAKER) 95.3 % 96.0-97.0 L (test code = 386) HCO3 ARTERIAL (BEAKER) (test code 17 mmol/L 21-29 L = 388) BASE EXCESS ARTERIAL (BEAKER) -6.4 mmol/L -2.0-3.0 L (test code = 387) PATIENT TEMPERATURE (BEAKER) 36.0 (test code = 1818) FIO2 (BEAKER) (test code = 1819) 100.0 [id number] 12:47:53 Test Item Value Reference Range Interpretation Comments SODIUM (BEAKER) (test code = 381) 137 meq/L 136-145 Technical Adjuster ID - JSLACTIC ACID, [id number] 12:47:37 Test Item Value Reference Range Interpretation Comments LACTATE BLOOD 2.3 mmol/L 0.5-2.0 H Specimen sligh tly ARTERIAL (2) (BEAKER) hemoly zed (test code = 2874) Technical Adjuster ID - JSBLOOD GAS, [id number] 12:23:19 Test Item Value Reference Range Interpretation Comments PH ARTERIAL (BEAKER) (test code = 7.39 7.35-7.45 383) PCO2 ARTERIAL (BEAKER) (test code 29 mm Hg 35-45 L = 384) PO2 ARTERIAL (BEAKER) (test code 99 mm Hg 80-90 H = 385) O2 SATURATION ARTERIAL (BEAKER) 97.7 % 96.0-97.0 H (test code = 386) HCO3 ARTERIAL (BEAKER) (test code 17 mmol/L 21-29 L = 388) BASE EXCESS ARTERIAL (BEAKER) -6.5 mmol/L -2.0-3.0 L (test code = 387) PATIENT TEMPERATURE (BEAKER) 36.5 (test code = 1818) FIO2 (BEAKER) (test code = 1819) 100.0 [id number] 11:15:25 Test Item Value Reference Range Interpretation Comments PROCALCITONIN (BEAKER) (test code 0.05 ng/mL <0.05 H = 3036) SEPSIS RISK (ng/mL)Low: 0.05-0.50Intermediate: 0.51-2.00High: >=2.01HIGH SENSITIVITY TROPONIN [id number] 11:10:59 Test Item Value Reference Range Interpretation Comments HIGH SENSITIVITY 139 pg/ml See_Comment H [Automated message] TROPONIN I (test code The arvind dsouza which = [id number]) generated this result transmitted ref erence range: <=17. Th e reference range was not used to int erpret this result as normal/abnormal . Technical Adjuster ID - JSThe [employer] SITE WASTEWATER SYSTEMS TECHNICIAN STAT High Sensitivity Troponin-I results should be used in conjunctionwith other diagnostic information such as ECG, clinical observations and information, and patient symptoms to aid in the diagnosis of PA.XR CHEST 1 VIEW PORTABLE / [id number] 10:47:01 [facility] 1975 Sex: FCLINICAL HISTORY: desaturationTECHNIQUE: 1 view of the chest.COMPARISON: 10/29/2022IMPRESSION:ETT no longer seen. New feeding tube below the diaphragm. Right centralline remains in the right atrium. There are mildly increased bilaterallower lung airspace opacities with blunting of both costophrenic angles.The cardiomediastinal silhouette is magnified by technique.Electronically Signed By: Yeyo Mills10/30/2022 10:49 CDTWorkstation Name: [id number] BRAIN WITHOUT IV [id number] 09:21:03 [facility] 1975 Sex: FCT BRAIN WITHOUT IV CONTRASTCLINICAL INDICATION: Stroke, follow upCOMPARISON: 10/29/2022TECHNIQUE: Noncontrast axial CT imaging of the brain, skull and face.Coronal and sagittal reformats are provided.DOSE REDUCTION: Dose modulation, iterative reconstruction, and/orweight-based adjustment of the mA/kV was utilized to reduce theradiation dose to as low as reasonably achievable.FINDINGS:Again seen is a largevolume intraparenchymal hematoma centered in theright subinsular region, currently measuring 5.1 x 6.6 x 2.5 cm (CC X APX transverse), similar to prior exam. Small foci of adjacent hemorrhageare also seen involving the right caudate nucleus.0.4 cm leftward midline shift at the foramina Gonzalez.Midline s tructures are normally developed. No hydrocephalus. Small volume intraventricular hemorrhage noted. AOrbits are within normal limits.No obstructive paranasal sinus disease. No calvarial fracture.No significant soft tissue swelling.IMPRESSION:1. No progressive intracranial hemorrhage.2. Large right subinsular intraparenchymal hematoma with adjacent smallfoci of hemorrhage in the right basal ganglia.3.Small-volume intraventricular hemorrhage without hydrocephalus.4. 0.4 cm leftward midline shift of the foramina Gonzalez.Electronically Signed By: Luís Mclain10/30/2022 09:23 CDTWorkstation Name: [id number] 04:21:01 Test Item Value Reference Range Interpretation Comments PHOSPHORUS (BEAKER) (test code = 3.2 mg/dL 2.3-4.7 604) Technical Adjuster ID - EMBASIC METABOLIC [id number] 04:21:00 Test Item Value Reference Range Interpretation Comments SODIUM (BEAKER) 138 meq/L 136-145 (test code = 381) POTASSIUM 4.2 meq/L 3.5-5.1 (BEAKER) (test code = 379) CHLORIDE (BEAKER) 109 meq/L 98-107 H (test code = 382) CO2 (BEAKER) 21 meq/L 22-29 L (test code = 355) BLOOD UREA 9 mg/dL 7-21 NITROGEN (BEAKER) (test code = 354) CREATININE 1.05 mg/dL 0.57-1.25 (BEAKER) (test code = 358) GLUCOSE RANDOM 109 mg/dL 70-105 H (BEAKER) (test code = 652) CALCIUM (BEAKER) 8.3 mg/dL 8.4-10.2 L (test code = 697) EGFR (BEAKER) 66 [...] not appl icable for dialysis patien ts Technical Adjuster ID - [id number] 04:21:00 Test Item Value Reference Range Interpretation Comments MAGNESIUM (BEAKER) (test code = 1.7 mg/dL 1.6-2.6 627) Technical Adjuster ID - EMCBC W/PLT COUNT & AUTO [id number] 03:30:03 Test Item Value Reference Range Interpretation Comments WHITE BLOOD CELL COUNT (BEAKER) 13.9 K/ L 3.5-10.5 H (test code = 775) RED BLOOD CELL COUNT (BEAKER) 3.76 M/ L 3.93-5.22 L (test code = 761) HEMOGLOBIN (BEAKER) (test code = 11.8 GM/DL 11.2-15.7 410) HEMATOCRIT (BEAKER) (test code = 35.5 % 34.1-44.9 411) MEAN CORPUSCULAR VOLUME (BEAKER) 94 fL 79-95 (test code = 753) MEAN CORPUSCULAR HEMOGLOBIN 31.4 pg 25.6-32.2 (BEAKER) (test code = 751) MEAN CORPUSCULAR HEMOGLOBIN CONC 33.2 GM/DL 32.2-35.5 (BEAKER) (test code = 752) RED CELL DISTRIBUTION WIDTH 14.6 % 11.7-14.4 H (BEAKER) (test code = 412) PLATELET COUNT (BEAKER) (test 195 K/CU MM 150-450 code = 756) MEAN PLATELET VOLUME (BEAKER) 9.1 fL 9.4-12.3 L (test code = 754) NUCLEATED RED BLOOD CELLS 0 /100 WBC 0-0 (BEAKER) (test code = 413) NEUTROPHILS RELATIVE PERCENT 84 % (BEAKER) (test code = 429) LYMPHOCYTES RELATIVE PERCENT 9 % (BEAKER) (test code = 430) MONOCYTES RELATIVE PERCENT 6 % (BEAKER) (test code = 431) EOSINOPHILS RELATIVE PERCENT 0 % (BEAKER) (test code = 432) BASOPHILS RELATIVE PERCENT 0 % (BEAKER) (test code = 437) NEUTROPHILS ABSOLUTE COUNT 11.67 K/ L 1.56-6.13 H (BEAKER) (test code = 670) LYMPHOCYTES ABSOLUTE COUNT 1.27 K/ L 1.18-3.74 (BEAKER) (test code = 414) MONOCYTES ABSOLUTE COUNT (BEAKER) 0.81 K/ L 0.24-0.36 H (test code = 415) EOSINOPHILS ABSOLUTE COUNT 0.04 K/ L 0.04-0.36 (BEAKER) (test code = 416) BASOPHILS ABSOLUTE COUNT (BEAKER) 0.06 K/ L 0.01-0.08 (test code = 417) IMMATURE GRANULOCYTES-RELATIVE 0.40 % 0.00-1.00 PERCENT (BEAKER) (test code = 2801) [id number] 00:34:48 Test Item Value Reference Range Interpretation Comments SODIUM (BEAKER) (test code = 381) 137 meq/L 136-145 Technical Adjuster ID - ADMINXR ABDOMEN/KUB 1 VIEW [id number] 18:55:43 [facility] : 1975 Sex: FTECHNIQUE: XR ABDOMEN/KUB 1 VIEW PORTABLEINDICATION: Enteric tube placement verification.COMPARISON: None.FINDINGS:Feeding tube tip projected over the third portion of the duodenum.Cholecystectomy clips arenoted. Excreted contrast is noted within thebladder. Moderate amount of stool within the proximal mid transversecolon. No specific evidence of bowel obstruction. Supine radiographs areinsensitive for detection of free intraperitoneal air.IMPRESSION:1. Feeding tube tip projects over the third portion of the duodenum.Electronically Signed By: Mo Soares10/29/2022 18:57 CDTWorkstation Name: [id number] 2022-10-29 18:31:20 Test Item Value Reference Range Interpretation Comments SODIUM (BEAKER) (test code = 381) 138 meq/L 136-145 Technical Adjuster ID - ADMINCREATININE, RANDOM [id number] 15:21:04 Test Item Value Reference Range Interpretation Comments CREATININE URINE (BEAKER) (test 24.5 mg/dL code = 375) Reference Range: No NormalsOperator ID - ADMINRAPID DRUG SCREEN, [id number] 14:06:15 Test Item Value Reference Range Interpretation Comments BARBITURATE URINE (BEAKER) (test Negative Negative code = 725) BENZODIAZEPINE SCREEN URINE (BEAKER) Negative Negative (test code = 726) COCAINE (METAB.) SCREEN (BEAKER) Negative Negative (test code = 1164) METHADONE SCREEN (BEAKER) (test code Negative Negative = 1436) OPIATE SCREEN URINE (BEAKER) (test Negative Negative code = 734) CANNABINOID SCREEN URINE (BEAKER) Negative Negative (test code = 727) AMPH/METHAMPH SCREEN (BEAKER) (test Positive Negative A code = 1438) PHENCYCLIDINE SCREEN URINE (BEAKER) Negative Negative (test code = 608) PH UA (BEAKER) (test code = 467) 6.0 5.0-8.0 DRUG CUTOFF CONC.Cocaine 300 ng/mL Cannabinoid 50 ng/mLBenzodiazepine 200 ng/mLBarbiturate 200 ng/mLPhencyclidine 25 ng/mLOpiate 300 ng/mLMethadone 300 ng/mLAmphetamine/ 1000 ng/mL MethamphetamineThis assay provides an unconfirmed qualitative test result for the clinical management of patients in emergency situations. Chain of custody not maintained. Some qhyy-ubx-szyadrk medications, as well as adulterants, may cause inaccurate results. Clinical correlation should be applied. A more comprehensive drug screen or confirmation of a detected drug may be performed upon request.Technical Adjuster ID - JSOperator ID - [auto] HEMOGLOBIN [id number] 13:23:17 Test Item Value Reference Range Interpretation Comments HEMOGLOBIN A1C 4.5 % See_Comment [Automated m essage] ELECTROPHORESIS (BEOpenClovis) The system which (test code = 3811) generated this result transmitted ref erence range: <=5.6%. The reference range was not used to int erpret this result as normal/abnormal . "The A1c is measured using a NGSP-certified method. HbA1c value equal to or greater than 6.5% as thediagnosis cutoff for diabetes. An HbA1c value of 5.7- 6.4% indicates increased risk for diabetes (prediabetes)."Technical Adjuster ID - ADMOperator ID - ADMCTA [id number] 13:16:45 [facility] : 1975 Sex: FCT BRAIN WITHOUT IV CONTRAST, CTA CAROTID, CTA BRAINBRAIN CT WITHOUT CONTRASTINDICATION: Unlisted Reason for Exam, intraparenchymal hematomaCOMPARISON: NoneTECHNIQUE:Rapid acquisition spiral images were obtained between the aortic archand the cranial vertex during intravenous contrast infusion toreconstruct axial images and angiographic 3D maximum intensityprojections (MIP). 3-D volumetric reformatted images were created at [employer] workstation. Precontrast images of the brain were alsoobtained. Stenosis evaluation reported in compliance with NASCET criteria.DOSE REDUCTION: Dose modulation, iterative reconstruction, and/orweight-based adjustment of the mA/kV was utilized to reduce theradiation dose to as low as reasonably achievable.FINDINGS:CT BRAIN:Intraparenchymal hematoma centered in the right subinsular regionmeasuring 5.4 x 5.8 x 2.7 cm. Small adjacent hemorrhages are seen in theright centralwhite matter and basal ganglia. Midline structures are normally developed. Diffuse senescent parenchy mal volume loss.No hydrocephalus. Effacement of the right lateral ventricle.Small volume intraventricular hemorrhageAtherosclerotic calcification of the intracranial internal carotid andvertebral arteries. Orbits are within normal limits. No obstructive paranasal sinus disease.CTA BRAIN:Internal carotid arteries: Petrous, cavernous and supraclinoid portionspatent. Middle cerebral arteries: Patent to distal branches.Anterior cerebral arteries: Patent. No A- comm aneurysm.Basilar system: Patent vertebrobasilar system.Posterior cerebral arteries:Patent P1 and P2 segments. Venous opacification: Major dural sinuses unremarkable for bolus timing.Additional findings: None.CTA NECK:Common carotid arteries:The common carotid arteries are normal in size. Bifurcations: No flow- limiting stenosis. Cervical internal carotid arteries: No flow limiting stenosis.Tortuosity of the bilateral cervical segments.Vertebral arteries: Hypoplastic left vertebral artery. Bifurcation ofthe left vertebral artery at the left C4-C5 level, with origins at theaortic arch and left subclavian artery.Arch anatomy: Conventional.Nonvascular findings:Osseous structures: No acute osseous abnormality. Intact calvarium andskull base.Dental caries and periapical abscesses in the molar teethbilaterally.Cervical soft tissues: No adenopathy. Patent aerodigestive tract.Lung apices: Bilateral airspace and interstitial opacities, which mayrepresent atelectasis, pneumonia or pulmonary edema.IMPRESSION:CT brain:1. 5.4 x 5.8 x 2.7 cm acuteintraparenchymal hematoma in the rightsubinsular region/external capsule.2. Small volume intraventricular hemorrhage without hydrocephalus.3. 0.6 cm leftward midline shift at the foramina Gonzalez. CTA head and neck:1. No acute vascular abnormality in the head and neck.2. Hypoplastic left vertebral artery.Electronically Signed By: Luís Mclain10/29/2022 13:18 CDTWorkstation Name: [id number] BRAIN WITHOUT IV [id number] 13:16:45 [facility] : 1975 Sex: FCT BRAIN WITHOUT IV CONTRAST, CTA CAROTID, CTA BRAINBRAIN CT WITHOUT CONTRASTINDICATION: Unlisted Reason for Exam, intraparenchymal hematomaCOMPARISON: NoneTECHNIQUE:Rapid acquisition spiral images were obtained between the aortic archand the cranial vertex during intravenous contrast infusion toreconstruct axial images and angiographic 3D maximum intensityprojections (MIP). 3-D volumetric reformatted images were created at [employer] workstation. Precontrast images of the brain were alsoobtained. Stenosis evaluation reported in compliance with NASCET criteria.DOSE REDUCTION: Dose modulation, iterative reconstruction, and/orweight-based adjustment of the mA/kV was utilized to reduce theradiation dose to as low as reasonably achievable.FINDINGS:CT BRAIN:Intraparenchymal hematoma centered in the right subinsular regionmeasuring 5.4 x 5.8 x 2.7 cm. Small adjacent hemorrhages are seen in theright centralwhite matter and basal ganglia. Midline structures are normally developed. Diffuse senescent parench ymal volume loss.No hydrocephalus. Effacement of the right lateral ventricle.Small volume intraventricular hemorrhageAtherosclerotic calcification of the intracranial internal carotid andvertebral arteries. Orbits are within normal limits. No obstructive paranasal sinus disease.CTA BRAIN:Internal carotid arteries: Petrous, cavernous and supraclinoid portionspatent. Middle cerebral arteries: Patent todistal branches.Anterior cerebral arteries: Patent. No A-comm aneurysm.Basilar system: Patent vertebrobasilar system.Posterior cerebral arteries:Patent P1 and P2 segments. Venous opacification: Major dural sinuses unremarkable for bolus timing.Additional findings: None.CTA NECK:Common carotid arteries: The common carotid arteries are normal in size. Bifurcations: No flow- limiting stenosis. Cervical internal carotid arteries: No flow limiting stenosis.Tortuosity of the bilateral cervical segments.Vertebral arteries: Hypoplastic left vertebral artery. Bifurcation ofthe left vertebral artery at the left C4-C5 level, with origins at theaortic arch and left subclavian artery.Arch anatomy: Conventional.Nonvascular findings:Osseous structures: No acute osseous abnormality. Intact calvarium andskull base. Dental caries and periapical abscesses in the molar teethbilaterally.Cervical soft tissues: No adenopathy. Patent aerodigestive tract.Lung apices: Bilateral airspace and interstitial opacities, which mayrepresent atelectasis, pneumonia or pulmonary edema.IMPRESSION:CT brain:1. 5.4 x 5.8 x 2.7 cm acute intraparenchymal hematoma in the rightsubinsular region/external capsule.2. Small volume intraventricular hemorrhage without hydrocephalus.3. 0.6 cm leftward midline shift at the foramina Gonzalez. CTA head and neck:1. No acute vascular abnormality in the head and neck.2. Hypoplastic left vertebral artery.Electronically Signed By: Luís Mclain10/29/2022 13:18 CDTWorkstation Name: [id number] 13:16:45[facility] : 1975 Sex: FCT BRAIN WITHOUT IV CONTRAST, CTA CAROTID, CTA BRAINBRAIN CT WITHOUT CONTRASTINDICATION: Unlisted Reason for Exam, intraparenchymal hematomaCOMPARISON: NoneTECHNIQUE:Rapid acquisition spiral images were obtained between the aortic archand the cranial vertex during intravenous contrast infusion toreconstruct axial images and angiographic 3D maximum intensityprojections (MIP). 3-D volumetric reformatted images were created at [employer] workstation. Precontrast images of the brain were alsoobtained. Stenosis evaluation reported in compliance with NASCET criteria.DOSE REDUCTION: Dose modulation, iterative reconstruction, and/orweight-based adjustment of the mA/kV was utilized to reduce theradiation dose to as low as reasonably achievable.FINDINGS:CT BRAIN:Intraparenchymal hematoma centered in the right subinsular regionmeasuring 5.4 x 5.8 x 2.7 cm. Small adjacent hemorrhages are seen in theright centralwhite matter and basal ganglia. Midline structures are normally developed. Diffuse senescent parenchy mal volume loss.No hydrocephalus. Effacement of the right lateral ventricle.Small volume intraventricular hemorrhageAtherosclerotic calcification of the intracranial internal carotid andvertebral arteries. Orbits are within normal limits. No obstructive paranasal sinus disease.CTA BRAIN:Internal carotid arteries: Petrous, cavernous and supraclinoid portionspatent. Middle cerebral arteries: Patent to distal branches.Anterior cerebral arteries: Patent. No A- comm aneurysm.Basilar system: Patent vertebrobasilar system.Posterior cerebral arteries:Patent P1 and P2 segments. Venous opacification: Major dural sinuses unremarkable for bolus timing.Additional findings: None.CTA NECK:Common carotid arteries:The common carotid arteries are normal in size. Bifurcations: No flow- limiting stenosis. Cervical internal carotid arteries: No flow limiting stenosis.Tortuosity of the bilateral cervical segments.Vertebral arteries: Hypoplastic left vertebral artery. Bifurcation ofthe left vertebral artery at the left C4-C5 level, with origins at theaortic arch and left subclavian artery.Arch anatomy: Conventional.Nonvascular findings:Osseous structures: No acute osseous abnormality. Intact calvarium andskull base.Dental caries and periapical abscesses in the molar teethbilaterally.Cervical soft tissues: No adenopathy. Patent aerodigestive tract.Lung apices: Bilateral airspace and interstitial opacities, which mayrepresent atelectasis, pneumonia or pulmonary edema.IMPRESSION:CT brain:1. 5.4 x 5.8 x 2.7 cm acuteintraparenchymal hematoma in the rightsubinsular region/external capsule.2. Small volume intraventricular hemorrhage without hydrocephalus.3. 0.6 cm leftward midline shift at the foramina Gonzalez. CTA head and neck:1. No acute vascular abnormality in the head and neck.2. Hypoplastic left vertebral artery.Electronically Signed By: Luís Mclain10/29/2022 13:18 CDTWorkstation Name: [id number], QUANTITATIVE, [id number] 13:15:24 Test Item Value Reference Range Interpretation Comments GONADOTROPIN, CHORIONIC (HCG) QUANT < mIU/mL 0-10 (BEAKER) (test code = 649) Non- Females: <10 mIU/mL Females: Gestation Age Reference Range(mIU/mL) 0.2-1 Week 5-50 1-2 Weeks 50-500 2-3 Weeks 100-5,000 3-4 Weeks 500-10,000 4-5 Weeks 1,000-50,000 5-6 Weeks 10,000-100,000 6-8 Weeks 15,000- 200,000 2-3 Months 10,000-100,000 Technical Adjuster ID - MARCOOSMOLALITY, [id number] 13:07:55 Test Item Value Reference Range Interpretation Comments OSMOLALITY URINE 529 mOsm/kg See_Comment [Automated message] ([employer]obe Consult[employer] GroupAKER) (test code = The sy stem which 614) generated this result transmitted ref erence range: 50-1,200 mOsm/kg. The reference range was not used to int erpret this result as normal/abnormal . UREA NITROGEN, RANDOM [id number] 12:57:04 Test Item Value Reference Range Interpretation Comments UREA NITROGEN URINE (BEAKER) (test 186 mg/dL code = 538) Reference Range: No NormalsOperator ID - JSSODIUM, RANDOM [id number] 12:57:03 Test Item Value Reference Range Interpretation Comments SODIUM URINE (BEAKER) (test code = 155 meq/L 243) Reference Range: No NormalsOperator ID - JSOSMOLALITY, [id number] 12:52:21 Test Item Value Reference Range Interpretation Comments OSMOLALITY, SERUM (BEAKER) (test 290 mOsm/kg 275-295 code = 615) [id number] 12:52:14 Test Item Value Reference Range Interpretation Comments SODIUM (BEAKER) (test code = 381) 140 meq/L 136-145 Technical Adjuster ID - MARCOPREGNANCY SCREEN, [id number] 09:52:55 Test Item Value Reference Range Interpretation Comments TEST URINE (BEAKER) (test Negative Negative code = 583) BLOOD GAS, [id number] 08:02:40 Test Item Value Reference Range Interpretation Comments PH ARTERIAL (BEAKER) (test code = 7.40 7.35-7.45 383) PCO2 ARTERIAL (BEAKER) (test code 38 mm Hg 35-45 = 384) PO2 ARTERIAL (BEAKER) (test code 136 mm Hg 80-90 H = 385) O2 SATURATION ARTERIAL (BEAKER) 98.8 % 96.0-97.0 H (test code = 386) HCO3 ARTERIAL (BEAKER) (test code 24 mmol/L 21-29 = 388) BASE EXCESS ARTERIAL (BEAKER) -1.1 mmol/L -2.0-3.0 (test code = 387) PATIENT TEMPERATURE (BEAKER) 36.5 (test code = 1818) FIO2 (BEAKER) (test code = 1819) 40.0 T4, [id number] 06:13:37 Test Item Value Reference Range Interpretation Comments FREE T4 (BEAKER) (test code = 655) 0.90 ng/dL 0.70-1.48 Technical Adjuster ID - ADMINTSH/FREE T4 IF [id number] 05:34:42 Test Item Value Reference Range Interpretation Comments THYROID STIMULATING HORMONE 6.331 uIU/mL 0.350-4.940 H (BEAKER) (test code = 772) Technical Adjuster ID - [id number] 05:26:57 Test Item Value Reference Range Interpretation Comments MAGNESIUM (BEAKER) (test code = 1.8 mg/dL 1.6-2.6 627) Technical Adjuster ID - [id number] 05:26:57 Test Item Value Reference Range Interpretation Comments PHOSPHORUS (BEAKER) (test code = 3.0 mg/dL 2.3-4.7 604) Technical Adjuster ID - MARCOCOMPREHENSIVE METABOLIC [id number] 05:26:56 Test Item Value Reference Range Interpretation Comments TOTAL PROTEIN 7.2 gm/dL 6.0-8.3 (BEAKER) (test code = 770) ALBUMIN (BEAKER) 4.5 g/dL 3.5-5.0 (test code = 1145) ALKALINE 231 U/L 40-150 H PHOSPHATASE (BEAKER) (test code = 346) BILIRUBIN TOTAL 1.2 mg/dL 0.2-1.2 (BEAKER) (test code = 377) SODIUM (BEAKER) 139 meq/L 136-145 (test code = 381) POTASSIUM (BEAKER) 3.6 meq/L 3.5-5.1 (test code = 379) CHLORIDE (BEAKER) 104 meq/L 98-107 (test code = 382) CO2 (BEAKER) (test 24 meq/L 22-29 code = 355) BLOOD UREA 14 mg/dL 7-21 NITROGEN (BEAKER) (test code = 354) CREATININE 1.48 mg/dL 0.57-1.25 H (BEAKER) (test code = 358) GLUCOSE RANDOM 201 mg/dL 70-105 H (BEAKER) (test code = 652) CALCIUM (BEAKER) 8.9 mg/dL 8.4-10.2 (test code = 697) AST (SGOT) 43 U/L 5-34 H (BEAKER) (test code = 353) ALT (SGPT) 41 U/L 6-55 (BEAKER) (test code = 347) EGFR (BEAKER) 44 Interpretatio n of eGFR (test code = 1092) mL/min/1.[address] age Description sq m Result G1 Ceci l or [...] not appl icable for dialysis patien ts Technical Adjuster ID - MARCOXR CHEST 1 VIEW PORTABLE / [id number] 05:03:50 [facility] : 1975 Sex: FXR CHEST 1 VIEW PORTABLE / BEDSIDEINDICATION: CVC placement confirmationCOMPARISON: 07/30/2022FINDINGS: Portable frontal view of the chest. IMPRESSION:Support Lines: The endotracheal tube terminates 2.8 cm cephalad to thecarina. Right transjugular central venous catheter terminates at thecavoatrial junction. Lungs and pleura: Bilateral hazy interstitial opacities suggestive ofinterstitial pulmonary edema. No focal airspace consolidation. Nosizable pleural effusion. No pneumothorax.Heart and mediastinum: Stable contours with cardiomegaly.Additional findings: None.Electronically Signed By: Jaziel Monte10/29/2022 05:05 CDTWorkstation Name: [id number] 04:56:04 Test Item Value Reference Range Interpretation Comments PARTIAL THROMBOPLASTIN TIME 30.4 seconds 22.5-36.0 (BEAKER) (test code = 760) PROTHROMBIN TIME/[id number] 04:55:22 Test Item Value Reference Range Interpretation Comments PROTIME (BEAKER) 13.6 seconds 11.9-14.2 (test code = 759) INR (BEAKER) (test 1.06 See_Comment [Automat ed message] code = 370) The system [employer] generated this result transmitted ref erence range: <=5.90. The reference range was not used to int erpret this result as normal/abnormal . RECOMMENDED COUMADIN/WARFARIN INR THERAPY RANGESSTANDARD DOSE: 2.0 - 3.0 Includes: PROPHYLAXIS for venous thrombosis, systemic embolization; TREATMENT for venous thrombosis and/or pulmonary embolus.HIGH RISK: Target INR is 2.5-3.5 for patients with mechanical heart valves.CBC W/PLT COUNT & AUTO [id number] 04:50:18 Test Item Value Reference Range Interpretation Comments WHITE BLOOD CELL COUNT (BEAKER) 10.9 K/ L 3.5-10.5 H (test code = 775) RED BLOOD CELL COUNT (BEAKER) 4.18 M/ L 3.93-5.22 (test code = 761) HEMOGLOBIN (BEAKER) (test code = 12.8 GM/DL 11.2-15.7 410) HEMATOCRIT (BEAKER) (test code = 38.9 % 34.1-44.9 411) MEAN CORPUSCULAR VOLUME (BEAKER) 93 fL 79-95 (test code = 753) MEAN CORPUSCULAR HEMOGLOBIN 30.6 pg 25.6-32.2 (BEAKER) (test code = 751) MEAN CORPUSCULAR HEMOGLOBIN CONC 32.9 GM/DL 32.2-35.5 (BEAKER) (test code = 752) RED CELL DISTRIBUTION WIDTH 14.3 % 11.7-14.4 (BEAKER) (test code = 412) PLATELET COUNT (BEAKER) (test 205 K/CU MM 150-450 code = 756) MEAN PLATELET VOLUME (BEAKER) 9.7 fL 9.4-12.3 (test code = 754) NUCLEATED RED BLOOD CELLS 0 /100 WBC 0-0 (BEAKER) (test code = 413) NEUTROPHILS RELATIVE PERCENT 85 % (BEAKER) (test code = 429) LYMPHOCYTES RELATIVE PERCENT 9 % (BEAKER) (test code = 430) MONOCYTES RELATIVE PERCENT 5 % (BEAKER) (test code = 431) EOSINOPHILS RELATIVE PERCENT 0 % (BEAKER) (test code = 432) BASOPHILS RELATIVE PERCENT 1 % (BEAKER) (test code = 437) NEUTROPHILS ABSOLUTE COUNT 9.22 K/ L 1.56-6.13 H (BEAKER) (test code = 670) LYMPHOCYTES ABSOLUTE COUNT 0.93 K/ L 1.18-3.74 L (BEAKER) (test code = 414) MONOCYTES ABSOLUTE COUNT (BEAKER) 0.57 K/ L 0.24-0.36 H (test code = 415) EOSINOPHILS ABSOLUTE COUNT 0.04 K/ L 0.04-0.36 (BEAKER) (test code = 416) BASOPHILS ABSOLUTE COUNT (BEAKER) 0.05 K/ L 0.01-0.08 (test code = 417) IMMATURE GRANULOCYTES-RELATIVE 0.70 % 0.00-1.00 PERCENT (BEAKER) (test code = 2801) BLOOD GAS, [id number] 04:03:20 Test Item Value Reference Range Interpretation Comments PH ARTERIAL (BEAKER) (test code = 7.35 7.35-7.45 383) PCO2 ARTERIAL (BEAKER) (test code 46 mm Hg 35-45 H = 384) PO2 ARTERIAL (BEAKER) (test code 68 mm Hg 80-90 L = 385) O2 SATURATION ARTERIAL (BEAKER) 93.9 % 96.0-97.0 L (test code = 386) HCO3 ARTERIAL (BEAKER) (test code 25 mmol/L 21-29 = 388) BASE EXCESS ARTERIAL (BEAKER) -1.1 mmol/L -2.0-3.0 (test code = 387) PATIENT TEMPERATURE (BEAKER) 35.6 (test code = 1818) FIO2 (BEAKER) (test code = 1819) 60.0 CALCIUM, [id number] 03:59:22 Test Item Value Reference Range Interpretation Comments CALCIUM IONIZED (BEAKER) (test 1.09 mmol/L 1.12-1.27 L code = 698) PH, BLOOD (BEAKER) (test code = 7.33 1810) Fungus culture + [id number] 08:28:10 Test Item Value Reference Range Interpretation Comments Result (test code = No fungus isolated in 6463-4) 28 days Fungus Smear (test No fungal elements seen code = 1406) [facility] [id number] 08:28:10 Test Item Value Reference Range Interpretation Comments CULTURE (BEAKER) (test No fungus isolated in code = 1095) 28 days FUNGUS SMEAR (BEAKER) No fungal elements seen (test code = 1406) [id number] 05:54:28 Test Item Value Reference Range Interpretation Comments MAGNESIUM (BEAKER) (test code = 1.9 mg/dL 1.6-2.6 627) Technical Adjuster ID - [id number] 05:54:28 Test Item Value Reference Range Interpretation Comments PHOSPHORUS (BEAKER) (test code = 5.2 mg/dL 2.3-4.7 H 604) Technical Adjuster ID - MARCOBASIC METABOLIC [id number] 05:54:27 Test Item Value Reference Range Interpretation [...] not appl icable for dialysis patien ts Technical Adjuster ID - MARCOCBC W/PLT COUNT & AUTO [id number] 05:42:51 Test Item Value Reference Range Interpretation [...] PERCENT (BEAKER) (test code = 2801) CALCIUM, [id number] 05:36:04 Test Item Value Reference Range Interpretation Comments CALCIUM IONIZED (BEAKER) (test 1.12 mmol/L 1.12-1.27 code = 698) PH, BLOOD (BEAKER) (test code = 7.42 1810) Anaerobic [id number] 02:03:45 Test Item Value Reference Range Interpretation Comments Result (test code = No anaerobes isolated 6463-4) [facility] [id number] 02:03:45 Test Item Value Reference Range Interpretation Comments CULTURE (BEAKER) (test No anaerobes isolated code = 1095) STD Panel - CT/GC [id number] 17:37:44 Test Item Value Reference Interpretation Comments Range C. trachomatis NOT DETECTED RNA, TMA (test code = 5669806) N. gonorrhoeae NOT DETECTED REFERENCE RA NGE: NOT RNA, TMA (test DETECTED Meth odology: code = 0014342) Transcriptio n Mediated Amplification ( TMA)to detect RNA. The analytical perf ormance characteristics of thisassay, when used to test SurePat h(TM) specimens haveb een determined by [facility]. Th e modificationsha ve not been cleared or approved by the FDA. This assayhas b een validated pursu ant to the CLIA regula tions andis used for clinical purpos es. For additional information, pl ease refer tohttps://educa tion.[employer]. [employer]/faq /LFR667(This li nk is being provided for informational/e ducatio nal purposes on ly.) SUE (test code = Performing Lab SUE) *[facility] [id number] [place] [id number] Sylvie Gresham MD, PhD [facility]BAMEADOW[facility] METABOLIC [id number] 16:40:09 Test Item Value Reference Range Interpretation [...] not appl icable for dialysis patien ts Technical Adjuster ID - BSOsmolality, [id number] 12:43:16 Test Item Value Reference Range Interpretation Comments Osmolality, Ur (test code 245 See_Comment [ Automated message] = 2695-5) The system [employer] generated this result transmitted ref erence range: 50-1,200 mOsm/kg mOsm/kg . The reference range was not used to int erpret this result as normal/abnormal . Lab Interpretation (test Normal code = 62458-1) [facility] CenterOSMOLALITY, [id number] 12:43:16 Test Item Value Reference Range Interpretation Comments OSMOLALITY URINE 245 mOsm/kg See_Comment [Automated message] (BEAKER) (test code = The sy stem which 614) generated this result transmitted ref erence range: 50-1,200 mOsm/kg. The reference range was not used to int erpret this result as normal/abnormal . Sodium, random [id number] 11:48:27 Test Item Value Reference Range Interpretation Comments Sodium Urine (test 82 meq/L code = 2955-3) SUE (test code = Reference Range: No SUE) NormalsOperator ID - ADMIN [facility] CenterUrea Nitrogen, random [id number] 11:48:27 Test Item Value Reference Range Interpretation Comments Urea Nitrogen, Ur 121 mg/dL (test code = 3095-7) SUE (test code = Reference Range: No SUE) NormalsOperator ID - ADMIN [facility] CenterODIUM, RANDOM [id number] 11:48:27 Test Item Value Reference Range Interpretation Comments SODIUM URINE (BEAKER) (test code = 82 meq/L 243) Reference Range: No NormalsOperator ID - ADMINUREA NITROGEN, RANDOM URINE 2022-08-10 11:48:27 Test Item Value Reference Range Interpretation Comments UREA NITROGEN URINE (BEAKER) (test 121 mg/dL code = 538) Reference Range: No NormalsOperator ID - ADMINCreatinine, random [id number] 11:48:26 Test Item Value Reference Range Interpretation Comments Creatinine, Ur 20.9 mg/dL (test code = 2161-8) SUE (test code = Reference Range: No SUE) NormalsOperator ID - ADMIN [facility] CenterCREATININE, RANDOM [id number] 11:48:26 Test Item Value Reference Range Interpretation Comments CREATININE URINE (BEAKER) (test 20.9 mg/dL code = 375) Reference Range: No NormalsOperator ID - ADMINWound culture + gram stain 2022-08-10 11:24:49 Test Item Value Reference Range Interpretation Comments Result (test code = No growth 6463-4) Gram Stain Result <1+ gram positive cocci (test code = 1123) in pairs [facility] + GRAM [id number] 11:24:49 Test Item Value Reference Range Interpretation Comments CULTURE (BEAKER) (test No growth code = 1095) GRAM STAIN RESULT 4+ WBCs (BEAKER) (test code = 1123) GRAM STAIN RESULT <1+ gram positive cocci (BEAKER) (test code = in pairs 33241) T4, [id number] 11:12:44 Test Item Value Reference Range Interpretation Comments FREE T4 (BEAKER) (test code = 655) 1.25 ng/dL 0.70-1.48 Technical Adjuster ID - AAHAMIDOSMOLALITY, [id number] 11:11:51 Test Item Value Reference Range Interpretation Comments OSMOLALITY, SERUM (BEAKER) (test 271 mOsm/kg 275-295 L code = 615) TSH/FREE T4 IF [id number] 10:36:27 Test Item Value Reference Range Interpretation Comments THYROID STIMULATING HORMONE 10.385 uIU/mL 0.350-4.940 H (BEAKER) (test code = 772) Technical Adjuster ID - [id number] 10:30:32 Test Item Value Reference Range Interpretation Comments CORTISOL, TOTAL (BEAKER) (test 11.9 ug/dL 3.7-19.4 code = 2755) Technical Adjuster ID - AAHAMIDCT, DRAINAGE, SOFT TISSUE FLUID [id number] 09:56:00Reason for exam:->tubo-ovarian abscess [facility] : 1975 Sex: [...] left lower quadrant fluid collection. Signed: Nilo Whiteside MDReport Verified Date/Time: 08/10/2022 09:56:28 Reading Location: [address] Neuro Reading Room BASIC METABOLIC [id number] 06:16:41 Test Item Value Reference Range Interpretation [...] high >=90 G2 Mildly decreased 60-89 G3a Mild ly to moderately 45-5 9 G3b Moderately to [...] not appl icable for dialysis patien ts Technical Adjuster ID - ADMINSpecimen slightly [id number] 06:16:41 Test Item Value Reference Range Interpretation Comments MAGNESIUM (BEAKER) 1.9 mg/dL 1.6-2.6 Specimen slightly (test code = 627) hemolyzed Technical Adjuster ID - ADMINCBC (HEMOGRAM ONLY)2022-08-10 05:54:45 Test Item Value Reference [...] 0-0 CELLS (BEAKER) (test code = 413) [id number] 04:19:50 Test Item Value Reference Range Interpretation Comments MAGNESIUM (BEAKER) (test code = 1.3 mg/dL 1.6-2.6 L 627) Technical Adjuster ID - MMBASIC METABOLIC [id number] 04:19:50 Test Item Value Reference Range Interpretation [...] not appl icable for dialysis patien ts Technical Adjuster ID - MMSpecimen slightly ictericCBC (HEMOGRAM ONLY)2022-08-09 [...] (BEAKER) (test code = 413) BASIC METABOLIC [id number] 06:27:34 Test Item Value Reference Range Interpretation [...] not appl icable for dialysis patien ts Technical Adjuster ID - DAMIÁN WSpecimen slightly ictericB-TYPE NATRIURETIC FACTOR (BNP) 2022-08-08 05:56:50 Test Item Value Reference Range Interpretation Comments B-TYPE NATRIURETIC PEPTIDE (BEAKER) 202 pg/mL 0-100 H (test code = 700) Technical Adjuster ID - BSCBC (HEMOGRAM ONLY)2022-08-08 05:36:13 Test [...] (BEAKER) (test code = 413) BASIC METABOLIC [id number] 05:39:11 Test Item Value Reference Range Interpretation [...] not appl icable for dialysis patien ts Technical Adjuster ID - ADMINSpecimen slightly ictericCBC (HEMOGRAM ONLY)2022-08-07 [...] 0-0 (BEAKER) (test code = 413) CT, [id number] 07:32:00Unlisted Reason for Exam - Click Yes and Enter Reason Below->NoProtocol Please Specify:->Standard ProtocolWill this procedure require oral contrast?->No [facility] : 1975 Sex: [...] MDReport Verified Date/Time: 08/06/2022 07:32:46 Reading Location: [facility] Diagnostic Imaging Reading Room - [place] [address] Pregnancy Screen, urine 2022-08-05 21:59:05 Test Item Value Reference Range Interpretation Comments Preg Test, Ur (test code = 2112-1) Negative Negative Lab Interpretation (test code = Normal 99708-5) [facility] CenterPREGNANCY SCREEN, [id number] 21:59:05 Test Item Value Reference Range Interpretation [...] CONCENTRATION Adequate (CELLAVISION)(BEAKER) (test code = 3438) Technical Adjuster ID - Salena comments: Slide comments:BASIC METABOLIC [...] not appl icable for dialysis patien ts Technical Adjuster ID - ADMINSpecimen slightly ictericPROTHROMBIN TIME/[id number] 21:25:45 Test Item Value Reference Range Interpretation [...] mechanical heart valves.CBC W/PLT COUNT & AUTO [id number] 21:20:49 Test Item Value Reference Range Interpretation [...] (BEAKER) (test code = 413) Transthoracic echo [id number] 16:18:18Ejection FractionSLEH ECHO HEARTLAB MKCKESSON [facility]AD[facility] METABOLIC [id number] 05:26:56 Test Item Value Reference Range Interpretation [...] not appl icable for dialysis patien ts Technical Adjuster ID - MMSpecimen slightly ictericCBC (HEMOGRAM ONLY)2022-08-03 [...] CONCENTRATION Decreased (CELLAVISION)(BEAKER) (test code = 3438) Technical Adjuster ID - Salena comments: Slide comments:CBC W/PLT COUNT & AUTO [id number] 14:52:12 Test Item Value Reference Range Interpretation [...] (BEAKER) (test code = 413) BASIC METABOLIC [id number] 13:40:34 Test Item Value Reference Range Interpretation [...] not appl icable for dialysis patien ts Technical Adjuster ID - ADMINSpecimen moderately ictericMYOCARD IMAGING, MULTI, PHARM, [id number] 15:12:00Unlisted Reason for Exam - Click Yes and Enter Reason Below->NoCANYON [facility]IDGE [facility]Name: [facility] : 1975 Sex: FFINAL REPORT PROCEDURE: MYOCARDIAL PERFUSION SPECT IMAGING (Rest/Stress)CPT CODE: 23329 INDICATION: Cardiac screening, high CAD risk CARDIOVASCULAR [...] prior study for comparison. Signed: Robbin Cerna MDRepramirez Verified Date/Time: 08/01/2022 15:12:23 HEMOGLOBIN A1C 2022-08-01 13:52:52 Test Item Value Reference Range Interpretation Comments HEMOGLOBIN A1C 5.0 % See_Comment [Automated m essage] ELECTROPHORESIS (BEAKER) The system which (test code = 3811) generated this result transmitted ref erence range: <=5.6%. The reference range was not used to int erpret this result as normal/abnormal . "The A1c is measured using a [facility]-certified method. HbA1c value equal to or greater than 6.5% as thediagnosis cutoff for diabetes. An HbA1c value of 5.7- 6.4% indicates increased risk for diabetes (prediabetes)."Technical Adjuster ID - ADM (CELLAVISION MANUAL DIFF)2022-08-01 08:26:35 [...] CONCENTRATION Decreased (CELLAVISION)(BEAKER) (test code = 3438) Technical Adjuster ID - Remy Deandreo-onUser comments: Slide comments:CBC W/PLT COUNT & AUTO [id number] 08:26:34 Test Item Value Reference Range Interpretation [...] (BEAKER) (test code = 413) HCG, QUANTITATIVE, [id number] 05:48:18 Test Item Value Reference Range Interpretation Comments GONADOTROPIN, CHORIONIC (HCG) QUANT < mIU/mL 0-10 (BEAKER) (test code = 649) Non- Females: <10 mIU/mL Females: Gestation Age Reference Range(mIU/mL) 0.2-1 Week 5-50 1-2 Weeks 50-500 2-3 Weeks 100-5,000 3-4 Weeks 500-10,000 4-5 Weeks 1,000-50,000 5-6 Weeks 10,000-100,000 6-8 Weeks 15,000- 200,000 2-3 Months 10,000-100,000 Technical Adjuster ID - [id number] METABOLIC PANEL 2022-08-01 05:41:39 Test Item Value [...] not appl icable for dialysis patien ts Technical Adjuster ID - DAMIÁN WSpecimen moderately [id number] 05:41:38 Test Item Value Reference Range Interpretation Comments MAGNESIUM (BEAKER) (test code = 1.7 mg/dL 1.6-2.6 627) Technical Adjuster ID - DAMIÁN [id number] 05:41:38 Test Item Value Reference Range Interpretation Comments PHOSPHORUS (BEAKER) (test code = 3.0 mg/dL 2.3-4.7 604) Technical Adjuster ID - DAMIÁN [id number] 05:39:59 Test Item Value Reference Range Interpretation Comments PROTIME (BEAKER) (test code = 18.0 seconds 11.9-14.2 H 759) INR (uBeam) (test code = 370) 1.59 <=5.90 PARTIAL THROMBOPLASTIN TIME 38.7 seconds 22.5-36.0 H (BEAKER) (test code = 760) RECOMMENDED COUMADIN/WARFARIN INR THERAPY RANGESSTANDARD DOSE: 2.0 - 3.0 Includes: PROPHYLAXIS for venous thrombosis, systemic embolization; TREATMENT for venous thrombosis and/or pulmonary embolus.HIGH RISK: Target INR is 2.5-3.5 for patients with mechanical heart valves.LIPID [id number] 22:24:08 Test Item Value Reference Range Interpretation Comments TRIGLYCERIDES (Jobe Consulting GroupAKER) (test code = 51 mg/dL 540) CHOLESTEROL (Jobe Consulting GroupAKER) (test code = 102 mg/dL 631) HDL CHOLESTEROL (uBeam) (test code 45 mg/dL = 976) LDL CHOLESTEROL CALCULATED (uBeam) 47 mg/dL (test code = 633) Triglyceride Reference Range: Low Risk <150 Borderline 150-199 High Risk 200- 499 Very High Risk >=500Cholesterol Reference Range: Low Risk <200 Borderline 200-239 High Risk >240HDL Cholesterol Reference Range: Low Risk >=60 High Risk <40LDL Cholesterol Reference Range: Optimal <100 Near Optimal 100-129 Borderline 130-159 High 160-189 Very High >=190 Technical Adjuster ID - [id number] ID - [id number] ID - [id number] slightly ictericU/S, ENDOVAGINAL (EV)2022-07-31 14:38:00Reason for exam:->[facility] 1975 Sex: [...] continued follow-up imaging with ultrasound. Signed: [facility] Duran [facility] Verified Date/Time: 07/31/2022 14:38:44 U/S, [id number] 14:38:00Reason for exam:->[facility] 1975 Sex: FFINAL [...] continued follow-up imaging with ultrasound. Signed: Shauna Duran [facility] Verified Date/Time: 07/31/2022 14:38:44 U/S, DUPLEX, [id number] 14:38:00 [facility] : 1975 Sex: [...] continued follow-up imaging with ultrasound. Signed: Shauna Duran MDReport Verified Date/Time: 07/31/2022 14:38:44 CBC W/PLT COUNT & AUTO [id number] 03:57:39 Test Item Value Reference Range Interpretation [...] H PERCENT (BEAKER) (test code = 2801) [id number] 03:56:52 Test Item Value Reference Range Interpretation Comments MAGNESIUM (BEAKER) (test code = 1.5 mg/dL 1.5-3.0 627) Technical Adjuster ID - [id number] ID - [id number] ID - [id number] ID - [id number] BASIC METABOLIC [id number] 03:55:31 Test Item Value Reference Range Interpretation [...] not appl icable for dialysis patien ts Technical Adjuster ID - [id number] ID - [id number] ID - [id number] ID - [id number] ID - [id number] ID - [id number] ID - [id number] ID - [id number] ID - [id number] slightly [id number] 03:54:07 Test Item Value Reference Range Interpretation Comments PHOSPHORUS (BEAKER) (test code = 4.0 mg/dL 2.5-4.5 604) Technical Adjuster ID - [id number] 18:37:08 Test Item Value Reference Range Interpretation Comments MAGNESIUM (BEAKER) (test code = 1.6 mg/dL 1.5-3.0 627) Technical Adjuster ID - [id number] ID - [id number] ID - [id number] ID - [id number], CHEST, 1 VIEW, NON [id number] 16:51:00Reason for exam:->SOB, wheezingShould this be performed at the bedside?->Yes [facility] 1975 Sex: FFINAL REPORT RAD, CHEST, 1 VIEW, NON DEPT TECHNIQUE: Frontal view(s) of the chest. INDICATION: SOB, wheezing COMPARISON: None FINDINGS/IMPRESSION: Lines/Tubes: None Lungs/pleura: No consolidation. Mild perihilar prominence with mild interstitial opacities, may represent mild edema. No pleural effusion. No pneumothorax. Heart and Mediastinum: Unremarkable. Soft Tissues and Bones: Unremarkable. Signed: Sarah Carrera Verified Date/Time: 07/30/2022 16:51:52 Reading Location: [facility] Radiology Reading Room BASI METABOLIC PANEL 2022-07-30 [...] not appl icable for dialysis patien ts Technical Adjuster ID - [id number] ID - [id number] ID - [id number] ID - [id number] ID - [id number] ID - [id number] ID - [id number] ID - [id number] ID - [id number] ID - [id number] ID - [id number] ID - [id number] TIME/INR 2022-07-30 16:00:01 Test Item Value Reference [...] mechanical heart valves.CBC W/PLT COUNT & AUTO [id number] 15:52:31 Test Item Value Reference Range Interpretation [...] PERCENT (BEAKER) (test code = 2801) TISSUE [id number] 12:09:00Surgical Pathology Report Case: [id number] Authorizing Provider: Trudy James MD Collected: 02/17/2019 1126 Ordering Location: [address] Received: 02/17/2019 1147 Service Pathologist: Angela Beach MD Specimen: Gallbladder A. GALLBLADDER, CHOLECYSTECTOMY: - CHRONIC CHOLECYSTITIS WITHCHOLELITHIASIS. Signing Pathologist Direct Phone Line: [phone] signed by Angela Beach MD on 02/19/2019 at 12:09 [id number] renal mass Gallbladder Received in formalin labeled with the patient's name, accession number and "gallbladder" is a 5.0 x 2.4 x 2.0 cm intact gallbladder with a1.5 cm linear staple line. A cystic duct is not grossly appreciated. The serosa is yellow-green, smooth and hyperemic. The specimen is opened to reveal approximately 2 mL of green turbid bile and a 2.5x 2.0 x 1.4 cm aggregate of green multifaceted calculi. The mucosa is paiz-green and trabeculated. The wall measures 0.2 cm thick. Timber Killer sections are submitted in A1-A2, with the inked proximalmargin is A1. PA/ew Performed.[facility], Department of Pathology, [address] [place] [id number], [facility], [address] [place] [address], [facility], [facility] of [facility], [address] [place] [address], JGO W/PLT COUNT & AUTO [id number] 07:03:00 Test Item Value Reference Range Interpretation [...] (BEAKER) (test code = 2801) BASIC METABOLIC [id number] 06:57:00 Test Item Value Reference Range Interpretation [...] 697) EGFR (BEAKER) (test 57 mL/min/1.73 ESTIMA MARKIE GFR IS code = 1092) sq m NOT ACCURATE CREATININE CLEARANCE IN PREDICTING GLOMERULAR FILTRATION RATE . ESTIMATED GFR I S NOT APPLICABLE FOR DIALYSIS PATIEN TS. HEPATIC FUNCTION [id number] 06:57:00 Test Item Value Reference Range Interpretation [...] (test code = 347) hemolyzed HEPATIC FUNCTION [id number] 06:57:00 Test Item Value Reference Range Interpretation [...] 72 U/L 6-55 H 347) BASIC METABOLIC [id number] 06:57:00 Test Item Value Reference Range Interpretation [...] 697) EGFR (BEAKER) (test 60 mL/min/1.73 ESTIMA MARKIE GFR IS code = 1092) sq m NOT ACCURATE CREATININE CLEARANCE IN PREDICTING GLOMERULAR FILTRATION RATE . ESTIMATED GFR I S NOT APPLICABLE FOR DIALYSIS PATIEN TS. CBC W/PLT COUNT & AUTO [id number] 06:28:00 Test Item Value Reference Range Interpretation [...] PERCENT (BEAKER) (test code = 2801) SCREEN, [id number] 07:28:00 Test Item Value Reference Range Interpretation Comments TEST URINE (BEAKER) (test Negative code = 583) [id number] 07:28:00 Test Item Value Reference Range Interpretation Comments MAGNESIUM (BEAKER) 2.0 mg/dL 1.6-2.6 Specimen moderately (test code = 627) hemolyzed [id number] 07:28:00 Test Item Value Reference Range Interpretation Comments PHOSPHORUS (BEAKER) 4.0 mg/dL 2.3-4.7 Specimen moderately (test code = 604) hemolyzed BASIC METABOLIC [id number] 07:28:00 Test Item Value Reference Range Interpretation [...] 697) EGFR (BEAKER) (test 49 mL/min/1.73 ESTIMA MARKIE GFR IS code = 1092) sq m NOT ACCURATE CREATININE CLEARANCE IN PREDICTING GLOMERULAR FILTRATION RATE . ESTIMATED GFR I S NOT APPLICABLE FOR DIALYSIS PATIEN TS. HEPATIC FUNCTION [id number] 07:28:00 Test Item Value Reference Range Interpretation [...] Specimen moderately (test code = 347) hemolyzed [id number] 07:28:00 Test Item Value Reference Range Interpretation Comments LIPASE (BEAKER) (test code = 749) 31 U/L 8-78 CBC W/PLT COUNT & AUTO [id number] 07:10:00 Test Item Value Reference Range Interpretation [...] (BEAKER) (test code = 2801) U/S, ABDOMINAL, [id number] 23:50:00Abdomen limited area? Add comment if clarification [...] dilatation or visualized choledocholithiasis. . Signed: Chay Garcia MDReport Verified Date/Time: 02/15/2019 23:50:53 URINALYSIS W/ REFLEX URINE [id number] 22:43:00 Test Item Value Reference Range Interpretation [...] SOURCE(BEAKER) (test code = 2795) HEPATIC FUNCTION [id number] 17:03:00 Test Item Value Reference Range Interpretation [...] Specimen slightly (test code = 347) hemolyzed [id number] 16:00:00 Test Item Value Reference Range Interpretation Comments MAGNESIUM (BEAKER) 2.1 mg/dL 1.6-2.6 Specimen slightly (test code = 627) hemolyzed BASIC METABOLIC [id number] 16:00:00 Test Item Value Reference Range Interpretation [...] 697) EGFR (BEAKER) (test 70 mL/min/1.73 ESTIMA MARKIE GFR IS code = 1092) sq m NOT ACCURATE CREATININE CLEARANCE IN PREDICTING GLOMERULAR FILTRATION RATE . ESTIMATED GFR I S NOT APPLICABLE FOR DIALYSIS PATIEN TS. GAMMA GLUTAMYL TRANSFERASE (GGT)2019-02-15 16:00:00 Test Item Value Reference Range Interpretation Comments GAMMA GLUTAMYL 149 U/L 9-64 H Specimen slig htly TRANSFERASE (BEAKER) hemolyz ed (test code = 364) PROTHROMBIN TIME/[id number] 15:31:00 Test Item Value Reference Range Interpretation [...] is 2.5-3.5 for patients wiht mechanical heart valves.[id number] 15:31:00 Test Item Value Reference Range Interpretation Comments PARTIAL THROMBOPLASTIN TIME 31.4 seconds 22.5-36.0 (BEAKER) (test code = 760) CBC W/PLT COUNT & AUTO [id number] 15:14:00 Test Item Value Reference Range Interpretation [...] H PERCENT (BEAKER) (test code = 2801) Consult Notes Date/Time Note Provider Source 2022-11-28 [id number]:23:09Associated Patrick Wallace OT [facility] 10:23:09 Order(s): CONSULT ADULT OCCUPATIONAL THERAPY OT GENERAL EVALUATIONConsult received via i'mma, EMR reviewed and evaluation completed 11/28/22. Patient referred to occupational therapy for evaluation and treatment. Patient is 47 year old female with chest pain, NSTEMI. 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 Patient agreeable to participate in occupational therapy. Patient seen in collaboration Lara Juarez PT secondary to patient's reduced functional endurance.Discharge Recommendations:Therapy Needs and Potential:- Patient would benefit from continued skilled occupational therapy services to address: Decline in basic activities of daily living, Decline in instrumental activities of daily living, Decline in cognition, Decreased strength, Decreased endurance, Decreased coordination, and Caregiver training - Patient demonstrates good potential to improve and meet therapy goals with further skilled occupational therapy services.- Patient appears motivated to improve their B/IADLs and return to their previous level of function.- Patient demonstrates ability to tolerate at least 30-60 minutes of active participation in occupational therapy.- Patient able to follow commands: 1-step Yes, Multi-step Yes, Inconsistencies YesChallenges to Home Transition:- Requires physical assistance for BADLS- Requires physical assistance for IADLS- Requires supervision or verbal cues for BADLS- Requires supervision or verbal cues for IADLSEquipment Recommendations: Shower chair with arm and back rest. Bedside commode with arm and back rest. Wheelchair. PLAN OF CARE: At least 2x/week Precautions: Weight bearing status: NAGeneral: PPE Utilized: Gloves and Surgical mask. Fall. Hemiplegic left shoulder. Bracing: Recommends Left UE sling when standing and during transfer. Left UE support when upright sitting. Current Occupational Performance and/or Treatment:AM-PAC 6 Clicks (Raw Score 0=Dependent, 24=Independent; Low function Raw Score 0= Dependent, 32=Independent):Raw Score - Daily Activity: 9T-Scale Score - Daily Activity: 25.33 Feeding: Supervision/Set-up assist to open containers. Feeds self using right hand.Grooming: Moderate Assistance. Needs assistance to wash both hands. Set-up toothbrush and paste. Patient brushed teeth using right hand. Tavares hair. Needs assist for thoroughness. Patient was reclined in bed, HOB raised.UB Bathing: Not tested. Likely patient will require Total Assistance due to reduced upright postural, left hemiplegia and reduced functional endurance. Suggest use of shower chair with back and arm rests if feasible.UB Dressing: Total Assistance with hospital gown. LB Dressing: Total Assistance with nonskid socks. Tub/Shower Transfer: Not tested. Toilet Transfer: Not tested. Toileting Hygiene: Total Assistance. Michelle wick in place. No BM at this time.Functional Mobility: Assist X2 supie to sit. Assist X2 to scoot edge of bed. Assist X2 sit to Stand. See PT not for more details. Patient/caregiver educated on:Protecting hemiplegic right US/shoulder. ADL training, Compensatory techniques/adaptive strategies, Fall prevention, Role of OT, and Safety awarenessPatient left semireclining in bed with call breen in reach. . Please, see full evaluation below for more detail. OT EVALUATION:47 year old female Admit date: 11/24/2022 Date of onset: 3Admit Diagnosis: NSTEMI (non-ST elevated myocardial infarction) [I21.4]OT Diagnosis: Impaired BADL independence, Impaired IADL independence, Weakness, Decreased endurance, Decreased UE Function Non-Dominant, and Impaired postural control.PMH: Past Medical History: Diagnosis Date (HFpEF) heart failure with preserved ejection fraction CVA (cerebral vascular accident) Essential (primary) hypertension HLD (hyperlipidemia) Seizures PSH: Past Surgical History: Procedure Laterality Date OVARIAN ABSCESS DRAIN PERCUTA PAIN: Denies pain before and after session. OCCUPATIONAL ROLES/HOME ENVIRONMENT:Home environment: Lives with spouse and sister. Single deann house. Bathroom access: YesBathroom setup: ShowerOccupation(s): UnemployedFunction prior to admission: Prior to Intracranial hemorrhage Basal ganglia 10/29 this year Household ambulation, Community ambulation, Independent with BADLs, and Independent with IADLs Suspected ischemic or hemorraghic stroke patient: NoEquipment prior to admission: Wheelchair. PERFORMANCE SKILLS/FACTORS: UE Muscle Tone: right WNL and left Hypotonicity UE ROM: right AROM WNL and left PROM WFL UE Strength: Right UE 5/5. Left UE 0/5Hand dominance: right Dexterity/Coordination: left Impaired and right IntactEndurance - Sitting: Poor Standing: UnableSitting Balance - Static: Poor Dynamic: PoorStanding: Balance - Static Poor Dynamic: PoorDizziness: NoSkin Integrity: No breakdown notedSensation: right Intact to light touch Oral Motor: WFLCommunication: Able to verbalize needs Yes Other: N/AVision: WFL Yes Other: N/AHearing: good; no issues reportedCOGNITION: Orientation: person, place. Prompts/cues provided for date/time, and situationFollows Commands: 1-step Yes Multi-step Yes Inconsistencies YesSafety Awareness/Judgment: Fair and Requires frequent cueingPROBLEM LIST: Decreased independence with ADL, Impaired postural control, Decreased functional ROM, Decreased strength/endurance for functional activity, and Impaired CognitionREHAB POTENTIAL/PROGNOSIS: fairPATIENT/FAMILY GOALS: None indicated at this time. TREATMENT/INTERVENTION PLAN: Functional motor treatment, Patient/Caregiver Education, Equipment recommendations, Daily living activities, Therapeutic exercises, and Neuromuscular Re-EducationGOAL(S): By discharge, patient will increase independence in daily living skills as follows: 1 Patient will transfer to bedside chair/wheelchair Moderate assist for OOB ADL.2 Patient will perform UB dressing (shirt) with minimal assistance.3 Patient will perform LB dressing (elastic/draw string waist pants) with moderate assistance. 4 Patient will complete grooming tasks with minimal assistance while seated on chair/wheelchair at the sink.5 Patient will transfer to toilet/BSC when feasible with Minimal assistance. 6 Patient will complete toileting hygiene, including clothing management, with minimal assistance.7 Patient will increase endurance for functional activity as evidenced by ability to sustain 15 minutes of active participation. 8 Patient/caregiver will verbalize/demonstrate understanding/proficiency in the following home programs: Left UE functional retraining and Protecting hemiplegic left shoulder/positioning.PATIENT-FAMILY TEACHINGPatient provided with preferred teaching of verbal information on Adaptive equipment , ADL training, Compensatory techniques/adaptive strategies, Fall prevention, Role of OT, and Safety awareness. Barriers to learning include physical limitations and emotional. Verbal instruction teaching provided. Individual is able to read and verbalizes understanding of teaching provided.Patrick C. Lyle Wallace [facility] ServicesTotal Timed Treatment Codes: 10 MinTotal Treatment Time: 35 MinPatient Complexity Level High - An occupational therapy evaluation of high complexity was completed using the above tests and measures. The following information was obtained: An occupational profile and medical and therapy history, including review of medical and/or therapy records and extensive additional review of physical, cognitive, or psychosocial history related to current functional performance, Various standardized and non-standardized assessments were used to identify at least 5 or more performance deficits related to physical, cognitive, or psychosocial skills that result in activity limitations and/or participation restrictions, and Clinical decision-making is of high analytic complexity, which includes an analysis of the patient profile, analysis of data from comprehensive assessment(s), and consideration of multiple treatment options. Patient present with comorbidities that affect occupational performance. Significant modification of tasks or assistance (e.g., physical or verbal) with assessment(s) is necessary to enable patient to complete evaluation component. 31923-6Nmosias [id number]:15:28Consult [id number] .[id number] for patient [id number] [id number] C Lawas [address] A[id number] GLP[id number]: 15:281.2.840.264848.1.72.3.15|1.2.84 [id number] 2022-11-28 [id number]:45:00Associated Savanna Juarez [facility] 09:45:00 Order(s): CONSULT ADULT PHYSICAL THERAPY Patient agreeable to working with physical therapy. Patient met supine.Recommend nursing staff utilize mechanical lift to safely assist patient with mobility out of the bed or chair.PHYSICAL THERAPY EVALUATIONConsult received, chart reviewed and evaluation complete this date. Patient is referred to PT for evaluation and treatment. 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 Troponin peaked at 1.34 and has been trending down since. Hx of basal ganglia hemorrhagic stroke back in early October. Consult received, chart reviewed and evaluation completed this date 11/28/22 in conjunction with Govind Wallace OTR/L for safety given patient's decreased activity tolerance, and physical impairment. Billing for PT portion only Discharge Recommendations: Therapy Needs and Potential:Patient would benefit from continued physical therapy services to address: decline in bed mobility decline in transfers decline in gait and/or balance decline w/c mobility decreased strength decreased range of motion decreased endurance decreased motor planningPatient demonstrates good potential to improve and meet therapy goals with further physical therapy services.Patient appears motivated to improve their functional mobility and return to their previous level of function.Patient demonstrates ability to tolerate atleast 30-60 minutes of physical therapy with active participation.Challenges to Home Transition: increased risk of fallsdecreased safety awarenessIncreased dependence with functional mobilityEquipment recommendations:Patient has her own wheelchair at homeCurrent Functional Status and/or Treatment: AM-PAC 6 Clicks (Raw Score 0=Dependent, 24=Independent; Low function Raw Score 0= Dependent, 32=Independent):Raw Score - Basic Mobility : 6T-Scale Score - Basic Mobility : 19.59 Bed Mobility:Rolling: Total AssistanceScooting in supine: Total AssistanceSupine-sit: Total AssistanceSitting balance PoorSit to supine: Total Assistance compensatory strategies to complete rolling without using side rails but with NDT techniquespatient given verbal cues for proper body mechanics during transition supine to sit and follow safe techniquesprovided total assistance to swing both LE in/out of bedprovided total assistance for elevation of the upper body to complete transition to upright position Incorporated sitting balance activities while sitting on the EOB.Initiated with static sitting balance and unable to progress to dynamic sitting balance within MOLLY due to poor trunk control. Manual facilitation for postural correction and to maintain midline position in sitting position. Anterior verbal and tactile cueing to reduce retropulsion .Transfers: Sit to stand: Total Assistance using two person assist to support left UE and LE, and for trunk controlStand to sit: Total Assistance using two person assistStatic/dynamic standing balance: Poor Provided education assistance for proper hand and feet placement, proper trunk, and pelvic movement for safety and stability during sit to stand. Needed max verbal and tactile cues for sequencing and balance.Ambulation: Started pre-gait activities such as weight shifting with two person assist, max verbal and tactile cues to maintain upright position, postural alignment, visual cuing for vertical alignment Patient able to maintain static standing with total assist x 2 for about 2-3 minutes.Therapeutic exercise: patient educated in Deep breathing, Fall prevention, General strengthening, Joint protection, Positioning, Relaxation/breathing techniques, and Safety awareness., instructed patient in the following: ankle pumps, heel slides, hip abduction/adduction, straight leg raises, short arc quads on right LE, PROM on left LE, patient/caregiver instructed to perform HEP 1-2 times per day, 10 repetitions., and patient/caregiver verbalizes understanding of instructions.Patient educated on functional mobility and the importance/benefits of active and safe performance to help prevent BLE DVT's, PNA, overall decrease in mobility, strength, and endurance, skin breakdownWeight shifting in supine and sitting position with correct frequency and duration to help prevent any possible skin breakdown.After session, patient semi reclined in bed, with SCD sleeves on and machine turned on, with heels off loaded using pillows, bed alarm on , and video patient monitoring in the room . Call button provided. Nurse notified.PLAN OF CARE: While in the hospital, PT will follow patient at least 3-5 times per week,once or twice a day, per patient's tolerance and needs.See below for complete details. 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 Troponin peaked at 1.34 and has been trending down since. Hx of basal ganglia hemorrhagic stroke back in early October. PT Diagnosis: Difficulty walking, Weakness, Malaise/fatigue, and HemiplegiaWeight Bearing Precaution: NA General Precautions: PPE used:Gloves, General, Fall, cardiac monitorBracing/Cast present or required:N/APMH: Past Medical History: Diagnosis Date (HFpEF) heart failure with preserved ejection fraction CVA (cerebral vascular accident) Essential (primary) hypertension HLD (hyperlipidemia) Seizures PSH: Past Surgical History: Procedure Laterality Date OVARIAN ABSCESS DRAIN PERCUTA Prior Living Situation: lives with their spouse, in a SS house, and sisterDME: Wheel Chair [id number] level of Mobility: requires assistance with transfers, requires assistance with bed mobility, uses w/c primarily, family/caregiver. Per patient, her sister puts her on the wheelchair, pushes her on the wheelchair since 2022Suspected ischemic or hemorraghic stroke:Yes, Pre-Stroke Modified Doran Score: 4 - Moderately severe disability; unable to walk without assistance and unable to attend to own bodily needs without assistance Subjective: "My sister pushes me around"Patient/Family Goals: To go homePatient/Family verbalizes understanding of condition: Yes PAIN: denies pain before and after sessionCOMMUNICATIONPrimary Language: Mexican Able to Verbalize needs: Yes Vision:good; no issues reported Hearing:good; no issues reported ORIENTATION/COGNITION:Oriented to: person, place, date/time, and situation Awake: Yes Alert: Yes Dizzy: No Follows Commands: Yes 1-Step Yes Multi-Step Yes Inconsistent: No NEUROLOGICALLight Touch: deficit: decreased on left LE, intact to right LEHeel to kimble: WNL on right and unable to do leftTone: flaccid left LE BALANCE:Sitting: Static: Poor Dynamic: PoorStanding: Static: Poor Dynamic: PoorRANGE OF MOTION: within functional limits bilateral LE STRENGTH: 5/5 (Normal) right LE , 0/5 left LE ENDURANCE: Poor+, Nasal canula, 4LNC SKIN INTEGRITY: intact PROBLEM LIST: Decline in bed mobility, Decline in gait, Decline in transfers, Decreased strength, Decreased endurance, Decreased balance, decline in wheel chair mobiliity, Safety awareness deficits, and Decreased Motor PlanningASSESSMENT: Patient is a 47 year old female seen secondary to the above listed diagnosis. Patient would benefit from continued PT to address the above listed deficits to maximize independence and safety with functional mobility.Rehabilitation Potential: good Goals: The following goals are to maximize independence and safety with functional mobility to eventually return to prior living situation and prior functional status. Upon discharge, patient and/or family will demonstrate the followin. Rolling: Minimal AssistanceSupine-sit: Minimal AssistanceSitting balance FairSit to supine: Minimal Assistance2. Squat pivot transfer: Minimal AssistanceFrom bed to wheelchair and back to bed3 Supervision with wheelchair propulsion and management of brakes.4. Demonstrate or verbalize understanding of home exercise program in order to continue with their rehab on their own.5. Progress to gait training with hemiwalker when able.Treatment Plan: Therapeutic exercise, Transfer training, Balance training, Bed mobility training, Equipment needs assessment, Safety education patient/caregiver education, Wheelchair mobility training, Neuromuscular Re-Education, and progress to gait training when able.PATIENT EDUCATION: Patient provided with preferred teaching of verbal information on role of PT, plan of care, HEP. Shows readiness to learn. Verbal instruction teaching provided. Individual verbalizes understanding of teaching provided.Total Time Tx Codes in Minutes: 31 minTotal Treatment Time in Minutes: 33 minSavanna Juarez PT, DPTUnBellville Medical CenterRehabilitation Services A physical therapy evaluation of high complexity was completed based on meeting at the criteria below:A history of present problem with at least 3 or more personal factors (includes environmental factors) and/or comorbidities that impact the plan of careAn examination of body systems using standardized tests and measures addressing a total of at least 4 or more elements from any of the following: body structures and functions, activity limitations, and/or participation limitationsA clinical presentation with unstable and unpredictable characteristics [id number] rjdvNG9780-08-33O51:53:18Consult noteTXT1.2.840.365877.1.13.104.2.7.2 .[id number] for patient ojeg24580-7Uximhsv [id number] Pallera [address] [id number] STRRNKKVAKYSRBVRTVONSD5504-20-37U58: 53:181.2.840.065738.1.72.3.15|1.2.84 0.0[id number]_18983 57789 2022-11-25 8373-21-15D80:49:18Associated PN-NEUROLOGY [facility] 18:49:18 Order(s): CONSULT NEUROLOGY STROKE SERVICE CONSULTDATE OF SERVICE: 11/25/2022 18:58REASON FOR CONSULT: clearance for anticoagulation for R BG hemorrhage HISTORY OF PRESENT ILLNESS Geetha Minor is a 47 year old female right handed with PMH HFpEF, HTN, HLD, seizures who was admitted due to ACS. Neurology was consulted for clearance of anticoagulation in the setting of a right basal ganglia hemorrhage. Patient had a right BG hemorrhage 10/29 secondary to HTN and was treated at OSH and discharged on 11/13 with repeat CTH that showed stable hemorrhage. However, CTH today shows 4 x 3 x 1 cm hyperattenuation with partial effacement of the right lateral ventricle. Patient reports that she has had dense hemiplegia on the left side since the onset of the hemorrhage. She denies any worsening symptoms. Body mass index is 26.52 kg/m?.STROKE DOCUMENTATION Stroke Activation - Date: (not recorded)Stroke Activation - Time: (not recorded)Physician arrival at bedside - Date: (not recorded)Physician arrival at bedside - Time: (not recorded)CT-Head without contrast read by Neurology: (not recorded) Last seen normal: Last known well - Date: (not recorded) Last known well - Time: (not recorded) Wake up stroke: NoNIH STROKE SCALENIHSS TOTAL: 10NIHSS Interval: AdmissionLOC: 0 Alert: Keenly ResponsiveLOC QUESTIONS: 0 Answers Both Questions CorrectlyLOC COMMANDS: 0 Performs Both Tasks CorrectlyBEST GAZE: 0 NormalVISUAL: 0 No Visual LossFACIAL PALSY: 2 Partial ParalysisMOTOR ARM-LEFT: 4 No MovementMOTOR ARM-RIGHT: 0 No DriftMOTOR LEG-LEFT: 4 No MovementMOTOR LEG-RIGHT: 0 No DriftLIMB ATAXIA: 0 AbsentSENSORY: 0 NormalBEST LANGUAGE: 0 No AphasiaDYSARTHRIA: 0 NormalEXTINCTION AND INATTENTION (FORMERLY NEGLECT): 0 No AbnormaltyDysphagia Screen:Dysphagia Screen Step 1 (Exclusion Criteria): Pass (none of the above) Dysphagia Screen Step 2 (Management of secretions): Pass (none of the above)Dysphagia Screen Step 3 (3-ounce water swallow challenge): Pass (none of the above) IV Alteplase: If IV Thrombolytic therapy was indicated and given as a standard of care was the patient/family informed of benefits of treatment and risk such as hemorrhage and/or angioedema?: (not recorded)Was there a delay in door to IV thrombolytic over 30 minutes?: (not recorded) Reason (s): (not recorded)ICH/SAH Endovascular Intervention: PRE- ADMISSION MODIFIED MARLI SCORE4 - Moderately severe disability; unable to walk without assistance and unable to attend to own bodily needs without assistance PAST MEDICAL HISTORY Past Medical History: Diagnosis Date (HFpEF) heart failure with preserved ejection fraction CVA (cerebral vascular accident) Essential (primary) hypertension HLD (hyperlipidemia) Seizures PAST SURGICAL HISTORY Past Surgical History: Procedure Laterality Date OVARIAN ABSCESS DRAIN PERCUTA FAMILY HISTORY No family history on file.SOCIAL HISTORY Social History Socioeconomic History Marital status: Tobacco Use Smoking status: Former Packs/day: 0.50 Years: 30.00 Additional pack years: 0.00 Total pack years: 15.00 Types: Cigarettes Quit date: 11/03/2022 Years since quittin.0 Passive exposure: Current Smokeless tobacco: Never Substance and Sexual Activity Alcohol use: Not Currently Drug use: Yes Types: Amphetamines Reviewed patient's family, surgical and social hx. HOME MEDICATIONS Medications Prior to Admission Medication Sig Dispense Refill Last Dose amLODIPine 10 mg tablet Take 1 tablet by mouth in the morning. atorvastatin 40 mg tablet Take 1 tablet by mouth at bedtime. furosemide (LASIX) 20 mg tablet Take 1 tablet by mouth in the morning. metoprolol tartrate (LOPRESSOR) 50 mg tablet Take 1 tablet by mouth in the morning and 1 tablet in the evening. NIFEdipine ER 60 mg tablet Take 1 tablet by mouth in the morning. QUEtiapine 25 mg tablet Take 1 tablet by mouth in the morning and 1 tablet in the evening. HOSPITAL MEDICATIONS Current Facility-Administered Medications Medication Dose Route Frequency Last Rate Last Admin albuterol (PROVENTIL) 2.5 mg /3 mL (0.083 %) nebulizer solution 2.5 mg 2.5 mg Inhalation PRN - SEE INSTRUCTIONS cetirizine (ZYRTEC) tablet 10 mg 10 mg Oral PRN - SEE INSTRUCTIONS diphenhydrAMINE (BENADRYL) injection 50 mg 50 mg Slow IV Push PRN - SEE INSTRUCTIONS EPINEPHrine (EPIPEN AUTO-INJECTOR) 0.3 mg/0.3 mL injection 0.3 mg 0.3 mg Intramuscular PRN - SEE INSTRUCTIONS famotidine (PEPCID (PF)) injection 20 mg 20 mg Slow IV Push PRN - SEE INSTRUCTIONS methylprednisolone sod succ (SOLU-MEDROL) injection 125 mg 125 mg Intravenous PRN - SEE INSTRUCTIONS atorvastatin (LIPITOR) tablet 40 mg 40 mg Oral QHS 40 mg at 11/24/222034 clopidogreL (PLAVIX) 75 mg tablet 75 mg 75 mg Oral DAILY 75 mg at 11/25/22916 FENTanyl PF (SUBLIMAZE (PF)) injection 25 mcg 25 mcg Slow IV Push Q3HPRN heparin (1,000 unit/mL, 10 mL vial) for Rebolusing 3,000 Units Slow IV Push FOR REBOLUSING heparin 25,000 Units/250 mL (Premixed Bag) in D5W 0-2,750 Units/hr IV Infusion TITRATE 6 mL/hr at 11/25/22 1829 600 Units/hr at 11/25/22 182 ipratropium-albuteroL (DUONEB) 0.5 mg-3 mg(2.5 mg base)/3 mL nebulizer solution 3 mL 3 mL Inhalation QIDPRN nitroglycerin (NITROSTAT) sublingual tablet 0.4 mg 0.4 mg Sublingual Q5MIN PRN 0.4 mg at 11/25/22 1249 pantoprazole (PROTONIX) EC tablet 40 mg 40 mg Oral DAILY 40 mg at 11/25/22916 ALLERGY Allergies Allergen Reactions Aspirin Anaphylaxis Throat swells; breaks out Fish Containing Products Unknown - See comments Mushroom Unknown - See comments REVIEW OF SYSTEMS General: (-) fever, (-) chills, (-) weight change, (-) dizziness, (-) fatigue, (-) change in appetiteSkin: (-) rash, (-) lesionHEENT: (-) headache, (-) change in hearing, (-) change in vision, (-) nasal discharge, (-) sore throatNeck: (-) pain, (-) difficulty swallowing, (-) massHeme: (-) bleeding disorderResp: (-) cough, (-) shortness of breath, (-) dyspnea on exertionCardio: (-) chest pain, (-) palpitations, (-) syncopeGI: (-) abdominal pain, (-) nausea, (-) vomiting, (-) diarrhea, (-) constipation, (-) melena, (-) hematochezia, (-) hematemesisGU: (-) dysuria, (-) hematuria, (-) increased frequency, (-) difficulty urinating, (-) difficulty initiatingEndo: (-) heat intolerance, (-) diabetes, (-) cold intolerance, (-) polyuria, (-) polydipsia, (-) renal insufficiency, (-) thyroid diseaseNeuro: (-) numbness, (-) tingling, (-) weaknessBack: (-) pain, (-) spasmsMSS: (-) muscle pain, (-) joint pain, (-) claudicationPsych: (-) anxiety, (-) depression, (-) psychiatric disorderPHYSICAL EXAM Vitals: 11/25/22 1300 11/25/22 1400 11/25/22 1600 11/25/22 1700 BP: 119/52 (!) 135/95 100/51 104/63 Pulse: 65 63 68 64 Resp: 18 Temp: TempSrc: SpO2: 93% 94% 93% Weight: Height: General: Alert and oriented x 4 (time, person, place and situation); no apparent distress. Mental Status: Consciousness, attention, concentration: normal, Stays focused and on task while being questioned.Speech/ Language: intact to comprehension, fluency, repetition and naming.Fund of knowledge: is congruent with level of education.Remote and recent memory: normal, can recall recent and distant memories Cranial Nerves:I. Not tested.II. PERRL. FOV full to confrontation. III. IV., . Extraocular movements intact without nystagmus.V. Normal sensation in V1-3 distributions.VII. No facial droop noted.VIII. Hearing intact.IX., X. Palatal elevation present symmetrically.XI. Normal Strength of sternocleidomastoid and trapezius muscles bilaterally.XII. Tongue in midline.Motor: Tone: normalBulk: normal5/5 on right and 0/5 on the left DTR's: Right Left Biceps 2+ 2+ Triceps 2+ 2+ Brachioradialis 2+ 2+ Patella 2+ 2+ Achilles 2+ 2+ Pathologic reflexes and signs:Pelletier: absent Babinski: present on left Cerebellar: Nystagmus: neg, FTN: nl, HTS:nl, Tremors: neg, Sensory:LT: intactGait: deferred LABS Recent Results (from the past 24 hour(s)) BASIC METABOLIC PANEL (NA, K, CL, CO2, GLUCOSE, BUN, CREATININE, CA) Collection Time: 11/24/22 8:31 PM Result Value Ref Range NA 136 135 - 145 mmol/L K 4.0 3.5 - 5.0 mmol/L CL 101 98 - 108 mmol/L CO2 TOTAL 29 23 - 31 mmol/L AGAP 6 2 - 16 BUN 21 7 - 23 mg/dL GLUCOSE 125 (H) 70 - 110 mg/dL CREATININE 1.30 (H) 0.50 - 1.04 mg/dL CALCIUM 9.3 8.6 - 10.6 mg/dL eGFR 44.1 mL/min/1.73m2 MAGNESIUM Collection Time: 11/24/22 8:31 PM Result Value Ref Range MAGNESIUM 1.7 1.7 - 2.4 mg/dL aPTT (for use with Heparin Infusion) Collection Time: 11/24/22 8:31 PM Result Value Ref Range APTT Patient 81 (H) 26 - 36 Seconds URINALYSIS Collection Time: 11/25/22 2:31 AM Result Value Ref Range APPEARANCE Clear Clear COLOR Yellow Yellow PH 6.0 4.8 - 8.0 SP GRAVITY 1.009 1.003 - 1.030 GLU U QUAL Normal Normal BLOOD Negative Negative KETONES Negative Negative PROTEIN Negative Negative UROBILIN Normal Normal BILIRUBIN Negative Negative NITRITE Negative Negative LEUK ANIBAL Negative Negative RBC/HPF 1 0 - 3 HPF WBC/HPF <1 0 - 5 HPF BACTERIA Few (A) Negative AMORPHOUS Rare Rare HPF SQ EPITH 9 (H) <=2 HPF YEAST BUD 1 <=1 HPF CBC WITHOUT DIFF Collection Time: 11/25/22 2:31 AM Result Value Ref Range WBC 4.07 (L) 4.30 - 11.10 10*3/?L RBC 3.26 (L) 3.93 - 5.25 10*6/?L HGB 10.6 (L) 11.6 - 15.0 g/dL HCT 30.9 (L) 35.7 - 45.2 % MCH 32.5 25.9 - 32.8 pg MCV 94.8 80.6 - 95.5 fL MCHC 34.3 31.6 - 35.1 g/dL PLT 157 (L) 166 - 358 10*3/?L MPV 10.4 9.5 - 12.9 fL RDW-CV 12.8 12.0 - 15.5 % RDW-SD 43.9 39.0 - 49.9 fL NRBC x10^3 <0.01 10*3/?L NRBC/100 WBC 0.0 0.0 - 10.0 /100 WBCs IPF % aPTT (for use with Heparin Infusion) Collection Time: 11/25/22 2:31 AM Result Value Ref Range APTT Patient >150 (HH) 26 - 36 Seconds DRUG PANEL 2 URINE Collection Time: 11/25/22 2:32 AM Result Value Ref Range AMPHET Negative Negative LOW U Negative Negative BENZO U Negative Negative Cocaine Metabolite Negative Negative METHADONE Negative Negative OPIATES Presumptive Positive (A) Negative PCP Negative Negative THC Negative Negative BASIC METABOLIC PANEL (NA, K, CL, CO2, GLUCOSE, BUN, CREATININE, CA) Collection Time: 11/25/22 4:20 AM Result Value Ref Range NA 135 135 - 145 mmol/L K 5.0 3.5 - 5.0 mmol/L CL 100 98 - 108 mmol/L CO2 TOTAL 28 23 - 31 mmol/L AGAP 7 2 - 16 BUN 20 7 - 23 mg/dL GLUCOSE 109 70 - 110 mg/dL CREATININE 1.20 (H) 0.50 - 1.04 mg/dL CALCIUM 9.2 8.6 - 10.6 mg/dL eGFR 48.4 mL/min/1.73m2 MAGNESIUM Collection Time: 11/25/22 4:20 AM Result Value Ref Range MAGNESIUM 3.1 (H) 1.7 - 2.4 mg/dL Transthoracic echo (TTE) Collection Time: 11/25/22 9:57 AM Result Value Ref Range Height 62 in Weight 145 lbs Systolic BP 122 mmHg Diastolic BP 68 mmHg Heart Rate 53 bpm LV GLS Endo Peak A2C () -7.60 % LV GLS Endo Peak A3C () -5.80 % LV GLS Endo Peak A4C () -8.20 % LV GLS Endo Peak Avg () -7.20 % BSA 1.67 m2 LVOT diameter 1.94 cm LVOT area 3.00 cm2 Ao root diam 3.20 cm Aortic root 3.2 cm Ao root annulus 3.2 cm LA size 3.6 cm LVIDD 3.60 cm Left Ventricular End Diastolic Volume by Teichholz Method 55.0 mL IVS 1.91 cm Interventricular Septum Diastolic Thickness by 2D 1.91 cm LVPWD 1.36 cm PW 1.36 0.6 - 1.1 cm EF(Teich) 60.70 % LVIDS 2.47 cm Left Ventricular End Systolic Volume by Teichholz Method 21.6 mL FS 32 % EF - 2D 60.70 % E wave decelartion time 0.34 s MV Peak E Gris 81.5 cm/s MV Peak A Gris 84.2 cm/s E/A ratio 0.97 ratio MV Prop V 29.50 cm/s LAV(MOD-sp4) 80.50 mL LVOT stroke volume 75.70 cm3 LVOT peak gris 183.5 cm/s LVOT mn grad 6.3 mmHg AV LVOT peak gradient 13.5 mmHg LVOT peak VTI 25.5 cm LV V1 mean 116.60 cm/s Tapse 2.17 cm LA Volume Index (BP) 47.0 mL/m2 LAV(MOD-sp2) 76.40 mL GLS -7 % aPTT (for use with Heparin Infusion) Collection Time: 11/25/22 10:42 AM Result Value Ref Range APTT Patient 85 (H) 26 - 36 Seconds TROPONIN I Collection Time: 11/25/22 12:51 PM Result Value Ref Range TROPONIN I 0.579 (H) <=0.034 ng/mL aPTT (for use with Heparin Infusion) Collection Time: 11/25/22 5:48 PM Result Value Ref Range APTT Patient >150 (HH) 26 - 36 Seconds STROKE LABSHGB A1C (%) Date Value 11/24/2022 4.6 LDL CHOL (mg/dL) Date Value 11/24/2022 37 CHOL (mg/dL) Date Value 11/24/2022 113 (L) TSH (mIU/L) Date Value 11/24/2022 2.03 Recent Labs 11/26/2311 TROPNI 0.911* 0.579* RADIOLOGY CT HEAD WO CONTRASTAddendum Date: 11/24/2022 Ventricles and extra-axial spaces: 5 mm LEFTWARD midline shift. Result Date: 11/24/2022Right basal ganglia hyperattenuating area may represent intraparenchymal hemorrhage and/or contrast staining. RL: 5500 End of Report SSMENT AND PLAN Geetha Minor is a 47 year old female right handed with PMH HFpEF, HTN, HLD, seizures who was admitted due to ACS. Neurology was consulted for clearance of anticoagulation in the setting of a right basal ganglia hemorrhage. NIHSS 10. CTH today shows 4 x 3 x 1 cm hyperattenuation with partial effacement of the right lateral ventricle. Given the presence of hemorrhage on most recent CTH, would recommend against anticoagulation due to risk of further bleeding and primary team would need to weight the risks vs benefits. R Basal Ganglia HemorrhageRecommendations- would recommend against anticoagulation due to risk of further bleeding and primary team would need to weight the risks vs benefits. - BP goal normotension - rest per primary Discussed and seen with Dr. Rivera, Neurology Faculty Stroke pager: [phone] Shahnaz Borges, MDPGY-4, NeurologyPager: [phone] signed by Romaine Rivera MD at 11/26/2022 5:21 PM CDTAssociated attestation - Romaine Rivera MD - 11/26/2022 5:21 PM CDT I personally examined patient on 11/25/2022 during rounds with the Stroke Team and I agree with resident's note, Dr Borges. I actively participated in the decision-making process. Please see the resident's note for additional details. 47-year-old right-handed woman with multiple stroke risk factors who is admitted for acute coronary syndrome. Neurology stroke service is consulted for clearance of anticoagulation in the setting of recent right basal ganglia ICH. She was admitted at outside hospital with hypertensive right basal ganglia bleed on 10/29/2022, and was discharged on 11/13/2022 with dense left hemiplegia. I personally reviewed multiple cranio-cervical images from 11/24/[address] head; and I agree with the radiologist's reading. Right basal ganglia hematoma with surrounding edema and partial effacement of the right lateral ventricle. On my exam, she has NIH stroke scale of 10 with dense left hemiplegia.Acute coronary syndromeRecent hypertensive ICH evident on CT scan with left hemiplegiaAnticoagulation might be a risky with persistent right basal ganglia hematoma. Risks and benefits of anticoagulation should be discussed with patient by primary team.I spent a Total Time of 83 minutes. The time spent for patient care includes: PreCharting (eg, review of tests, notes, etc.), Performing a medically appropriate examination and/or evaluation, Counseling and educating the patient/family/caregiver, Documenting clinical information in the electronic or other health record, and Independently interpreting results (not separately reported) and/or communicating results to the patient/family/caregiver. [id number] [id number], Hashem1.2.840.107688.1.13.104.2.7.2. [id number]1-40Z55: 21:11Consult noteTXT1.2.840.732870.1.13.104.2.7.2 .344572|[id number] for patient wild41494-1Nxflvlx qocpDVNB-RVEVZBFMDZB-NOMROAPYVFWRAJF MB - Health[address] [employer] Eq[id number] PLJEPSZAONAPMLBBKDZSKV9866-55-77J55: 21:111.2.840.585781.1.72.3.15|1.2.84 0.860582.1.13.104.2.7.2.727879_18956 [id number] 2022-11-25 3031-99-55L88:00:00Associated Analy [facility] 18:00:00 Order(s): CONSULT PS PASTORAL Filippo CARE Clerical And Office Support Workers visited with patient in response to consult for pastoral care and support. Patient was awake and acknowledged bander hand's presence. Pt was alone in room. The Pt said she was of Caodaism nicole. The PT. Expressed to the Clerical And Office Support Workers of some fear,about her upcomming surgery that going to be done on her heart.Pt asked the Clerical And Office Support Workers to pray for her and for God to give her peace. The Clerical And Office Support Workers provided spiritual support through prayer of healing, peace and comfort. Clerical And Office Support Workers provided pastoral presence, and validated feelings. Pastoral care will continue to follow up as needed. Rev.Analy Ferro [facility] Department of Pastoral CarePh: [phone]: [phone] 49431-8Neweyvh qtecQT2714-14-04X75:31:33Consult noteTXT1.2.840.371798.1.13.104.2.7.2 .896113|[id number] for patient rqko30316-7Upuzldv [id number] M [address][id number] QZICSWDPEIPOJKFXYRZDBA1800-30-44D56: 31:331.2.840.209065.1.72.3.15|1.2.84 0.560017.1.13.104.2.7.2.727879_18956 [id number] 2022-11-25 2943-24-67Q69:53:13Associated PED-PEDIATRICS [facility] 10:53:13 Order(s): CONSULT ALLERGY ALLERGY & IMMUNOLOGY CONSULT NOTEDATE OF SERVICE: 11/25/22REASON FOR CONSULT: Aspirin allergyHPI: Patient is a 47 year old female with a past medical history significant for recent hemorrhagic stroke (10/29/22; 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 Patient had the flu and took aspirin, within 1 minute she then developed a "chickenpox like rash" that was itchy, and throat swelling. She went to the hospital and was provided some medications then sent home. She is unsure what these medications were. She's never had eric-seltzer/BC powder products. She took Ibuprofen 1 month ago without problems. Father reports he does not remember the episode of when she was 17 and what happened. She has not taken anyaspirin products. She also reports a history of asthma w/o the need of inhalers. She reports having hives in the past, but no known triggers and none recently. No known history of NSAIDs exacerbating her asthma. Denies any chronic rhinitis symptoms or nasal polyps.MEDICATIONS: Current Facility-Administered Medications Medication Dose Route Frequency Last Rate Last Admin atorvastatin (LIPITOR) tablet 40 mg 40 mg Oral QHS [START ON 11/25/2022] clopidogreL (PLAVIX) 75 mg tablet 75 mg 75 mg Oral DAILY FENTanyl PF (SUBLIMAZE (PF)) injection 25 mcg 25 mcg Slow IV Push Q3HPRN heparin (1,000 unit/mL, 10 mL vial) for Rebolusing 3,000 Units Slow IV Push FOR REBOLUSING heparin 25,000 Units/250 mL (Premixed Bag) in D5W 0-2,750 Units/hr IV Infusion TITRATE 8 mL/hr at 11/24/22 1442 800 Units/hr at 11/24/22 1442 ipratropium-albuteroL (DUONEB) 0.5 mg-3 mg(2.5 mg base)/3 mL nebulizer solution 3 mL 3 mL Inhalation QIDPRN nitroglycerin (NITROSTAT) sublingual tablet 0.4 mg 0.4 mg Sublingual Q5MIN PRN [START ON 11/25/2022] pantoprazole (PROTONIX) EC tablet 40 mg 40 mg Oral DAILY ALLERGIES: Allergies Allergen Reactions Aspirin Anaphylaxis Throat swells; breaks out Fish Containing Products Unknown - See comments Mushroom Unknown - See comments PMFSHx:Past Medical History: Diagnosis Date (HFpEF) heart failure with preserved ejection fraction CVA (cerebral vascular accident) Essential (primary) hypertension HLD (hyperlipidemia) Seizures Past Surgical History: Procedure Laterality Date OVARIAN ABSCESS DRAIN PERCUTA Social History Tobacco Use Smoking status: Former Packs/day: 0.50 Years: 30.00 Additional pack years: 0.00 Total pack years: 15.00 Types: Cigarettes Quit date: 11/03/2022 Years since quittin.0 Passive exposure: Current Smokeless tobacco: Never Substance Use Topics Alcohol use: Not Currently Drug use: Yes Types: Amphetamines No family history on file.REVIEW OF SYSTEMS:Constitutional: (-) fever, (-) chillsEyes: (-) itching, (-) redness, (-) discharge, (-) swelling, (-) change in visionEars: (-) ear pressure, (-) discharge, (-) tinnitus, (-) hearing lossNose: (-) rhinorrhea, (-) congestion, (-) post nasal drip, (-) sneezing, (-) itching, (-) epistaxis, (-) headachesMouth/Throat: (-) throat soreness, (-) throat itching, (+) throat swelling, (-) tongue swellingCardiovascular: (+) chest pain, (-) palpitations, (-) difficulty lying flatRespiratory: (-) cough, (-) shortness of breath, (-) wheezing, (-) chest tightnessGastrointestinal: (-) nausea, (-) vomiting, (-) diarrhea, (-) constipationSkin: (+) hives, (-) itching, (-) rashEndocrine: (-) thyroid problems, (-) diabetesMusculoskeletal: (-) joint pain, (-) joint stiffness, (-) joint swellingHem/Lymph: (-) bruising, (-) bleeding d/oNeuro: +weakness (-) dizziness, (-) syncope, (-) ataxiaPsych: (-) anxiety, (-) depressionPHYSICAL EXAM:BP 110/62 | Pulse 63 | Temp 36 ?C (96.8 ?F) (Axillary) | Resp 17 | Ht 1.575 m (5' 2") | Wt 65.8 kg (145 lb) | SpO2 100% | BMI 26.52 kg/m? General: alert, no apparent distressHead: normocephalic, Eyes: anicteric sclera, no conjunctival injection or drainageEars: external ears normal, canals clear,Nose: nares normal, septum midline, mucosa normal, nasal cannula out of her noseOropharynx: normal, clear without erythema or exudateNeck: supple, no lymphadenopathy Cardiovascular: regular rate and rhythm, no murmurRespiratory: lungs clear to auscultation bilaterally with good air movement, no wheezes or cracklesAbdomen: abdomen soft, nondistended, non-tender. Two areas of bruising. Lymphatic: non-palpable nodes in neck, clavicular regionsExtremities: no lower extremity edemaSkin: skin color, texture, and turgor are normal, no rash present. Tattoo on the lower back and right ankle. Neurologic: Left sided weakness, preferentially moves only her right sidePsychiatric: appropriate mood, affectLABS / IMAGING, reviewed: Latest Reference Range & Units 11/25/22 02:32 PCP Negative Negative OPIATES Negative Presumptive Positive ! METHADONE Negative Negative AMP METH Negative Negative LOW U Negative Negative BENZO U Negative Negative Cocaine Metabolite Negative Negative THC Negative Negative URINE DRUG (IMMUNOASSAY) - COMPREHENSIVE DRUG SCREEN Rpt ! CT HEAD WO CONTRASTAddendum Date: 11/24/2022 Ventricles and extra-axial spaces: 5 mm LEFTWARD midline shift. Result Date: 11/24/2022Right basal ganglia hyperattenuating area may represent intraparenchymal hemorrhage and/or contrast staining. 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 Patient's reaction was around 30 years ago without hx of AERD, nasal polyps or urticaria, so we would be able to do a 2-step challenge with aspirin. However, she had a hemorrhagic stroke with 5 mm left midline shift and pending clearance by neurology prior to administration of aspirin due to her bleed. - Discussed treatment options and alternatives with primary team- Patient to be challenged to max 81 mg dose. Patient pending clearance from Neurology about administration of aspirin prior the initiation of challenge- Rescue medications ordered and to stay at bedside in preparation for the challenge. - Primary team to contact AI fellow once patient is cleared or plans change. She will require ICU stay for a challenge/desensitization- We went through the procedure details and informed her about adverse reaction that can occur during the procedure including itching, hives, angioedema, respiratory distress, hypotension and the fact that it could be life threatening. Patient understands and wants to go proceed with the procedure. A written consent was obtained and placed in the chart signed by step-father under direction of patient. - Plan also explained to via north korean translatorPatient seen with Dr. Magaña. Thank you for this consult. We will continue to follow the patient peripherally. Please do not hesitate to reach out to the on-call fellow with additional questions or concerns. Bere Arroyo, MDAllergy and Immunology Fellow, PGY-4 ssociated attestation - Alexandra Magaña MD - 11/26/2022 4:58 PM CDT I personally examined the patient on 11/25/[address] Arroyo's fellow note with the following addition(s):Physical Exam:Skin: no urticaria or angioedema noted on face, neck, chest, abdomen, back, arms or legs b/l I actively participated in the decision-making process. Please see the fellow's note for additional details. [id number] [id number], [id number]8U66:58:19C onsult [id number] .[id number] for patient [id number] bknuWBMIL-DIQTJRAWGOBRA-TUCSQLUHKSLR29 Rivera [id number] [id number]: 58:191.2.840.484210.1.72.3.15|1.2.84 [id number] 2022-11-24 1531-28-14X82:08:12Associated [facility] 16:08:12 Order(s): CONSULT SURGERY NEUROSURGERY NEUROSURGERY CONSULTATION HISTORY AND PHYSICALAttending Neurosurgeon: Dr. 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 Pt denies headaches, vision/hearing changes, nausea, vomiting, numbness, tingling. Pt does have persistent left sided weakness.MedicationsNo current facility-administered medications on file prior to encounter. Current Outpatient Medications on File Prior to Encounter Medication Sig Dispense Refill amLODIPine 10 mg tablet Take 1 tablet by mouth in the morning. atorvastatin 40 mg tablet Take 1 tablet by mouth at bedtime. furosemide (LASIX) 20 mg tablet Take 1 tablet by mouth in the morning. metoprolol tartrate (LOPRESSOR) 50 mg tablet Take 1 tablet by mouth in the morning and 1 tablet in the evening. NIFEdipine ER 60 mg tablet Take 1 tablet by mouth in the morning. QUEtiapine 25 mg tablet Take 1 tablet by mouth in the morning and 1 tablet in the evening. Past Medical History:Past Medical History: Diagnosis Date (HFpEF) heart failure with preserved ejection fraction CVA (cerebral vascular accident) Essential (primary) hypertension HLD (hyperlipidemia) Seizures Past Surgical History: Past Surgical History: Procedure Laterality Date OVARIAN ABSCESS DRAIN PERCUTA Social History: Social History Tobacco Use Smoking status: Former Packs/day: 0.50 Years: 30.00 Additional pack years: 0.00 Total pack years: 15.00 Types: Cigarettes Quit date: 11/03/2022 Years since quittin.0 Passive exposure: Current Smokeless tobacco: Never Substance Use Topics Alcohol use: Not Currently Drug use: Yes Types: Amphetamines Family History:No family history on file.ROS (BOLDED IF POSITIVE - otherwise negative)Constitutional: Nausea, Vomiting, Fevers, ChillsEyes: Diplopia, Amaurosis Fugax, Blurred VisionEars, nose, mouth, and throat: NegativeEndocrine: NegativeHematologic: NegativeCard: Chest pain, PalpitationsPulm: Cough, Shortness of breathGI: Diarrhea, Constipation, Incontinence : Incontinence, Retention, Hematuria, DysuriaInteg: Masses, Rashes, LesionsMsk: Weakness, PainNeuro: Headache, Vision changes, Dizziness, Weakness, Discoordination, Changes in sensation, Speech difficulty, Memory disturbancesPEVitals: Vitals: 11/24/22 1200 11/24/22 1300 11/24/22 1400 11/24/22 1500 BP: 114/64 112/69 117/75 110/62 Pulse: 56 59 59 63 Resp: 17 18 17 Temp: TempSrc: SpO2: 100% 100% Weight: Height: Awake, alert, oriented k8ROIPI bilaterally at 3mmEOMI bilaterallySlight left lower facial weaknessTongue midlineIntact CNI-XII, aside from left CN XIRUE 5/5LUE no movementRLE 5/5LLE withdraw to stimSensation intact to LT throughoutExam deep tendon: 2+ patellars BLNo drift appreciated on right No clonusNo Pelletier'sLabs:Recent Labs WBC 6.05 HGB 10.4* HCT 30.6* PLT 203 ]Recent Labs NA 135 K 3.9 CL 97* TCO2 27 BUN 23 CREAT 1.40* GLU 163* CA 9.4 ]No results for input(s): "ACPH", "ACPCO2", "ACPO2", "ACHCO3", "ACNA", "ACK", "ACCAIONZ", "ACBE" in the last 72 hours.Recent Labs APTTPAT >150* No results for input(s): "UPROTEIN", "UGLUCOSE", "UKETONES", "UBILI", "UBLOOD", "UUROBILIN", "ULEUKEST", "UNITRITE", "USPGRAV" in the last 72 hours.@1LFT@No results for input(s): "PHENYTOIN", "PHENYFREE" in the last 72 hours. Imaging: CT HEAD WO CONTRASTAddendum Date: 11/24/2022 Ventricles and extra-axial spaces: 5 mm LEFTWARD midline shift. Result Date: 11/24/2022Right basal ganglia hyperattenuating area may represent intraparenchymal hemorrhage and/or contrast staining. 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 NSGY consulted for recs regarding heparin in light of recent hemorrhagic stroke. Pt at neurologic baseline s/p stroke.Recommendations:No neurosurgical interventionPlease consult neurology for management and recommendations of anticoagulation w/ hx of hemorrhagic strokeWill sign off at this timeChristian MD CindyNeurosurgery ServiceFor inquiries please page [phone] signed by Burton Howell MD at 11/25/2022 12:23 PM CDTAssociated attestation - Burton Howell MD - 11/25/2022 12:23 PM CDT I personally evaluated and am primary in decision making on, Geetha Minor, and I agree with the documentation by Sinan White MD,neurosurgery resident.[id number] [id number], Rudy [id number] 2AegvtuIligBPV9367-65-48L65:23:14Con [facility] [id number] .[id number] for patient [id number] noteLNNS-NEUROLOGICAL SURGERYNS-NEUROLOGICAL SURGERY[id number] [id number]: 23:141.2.840.982183.1.72.3.15|1.2.84 [id number] History and Physical Notes Date/Time Note Provider Source 2022-11-24 11:33:08 8550-65-15S28:33:08Formatting of this note [facility] is different from the original.Images from the original note were not included.CCU History and Physical Date of Service: 11/24/2022 15:48 ICU day: Intubation Day: CHIEF COMPLAINT: Chest painHistory of Present IllnessGeetha Minor is a 47 year old female with a past medical history significant for recent hemorrhagic stroke (10/29/22; hypertensive 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 On my interview, patient reports that she developed chest pain yesterday morning for the first time. Chest pain developed at rest but resolved soon thereafter without intervention. She states that she awoke this morning with similar chest pain; described as intermittent "sharp and stabbing" pain with constant "pressure" under her sternum. Denies shortness of breath. Because of the return of her chest pain she decided to seek evaluation at her local hospital. Denies ever undergoing heart catheterization. Upon arrival, reporting substernal, pressure-like chest pain. EKG obtained without STEMI criteria. She reports that she smoked 0.5 ppd since age 14 but quit three weeks ago. Used to drink in her teens/20's but doesn't anymore. Adamantly denies drug use despite UDS positive for amphetamines during her recent hospitalization.Workup at [facility] showed ST depression and TWI in inferior and lateral leads but met criteria for LVH. High sensitivity troponin was elevated at 2110.1. Creatinine 1.42 (baseline ~0.8 - 1), elevated liver chemistries (AST 140; ALT 192; Alk phos 575). CT Abdomen/Pelvis was interpreted as "enlarged solid and cystic left adnexal lesion measuring 7 x 5 cm. Enlarged in size since comparative study". Of note, was admitted back in July for a tuboovarian abscess that was drained percutaneously by IR and completed a course of antibiotics.Loaded with Plavix (ASA allergy) and started on heparin gtt prior to transfer.PAST MEDICAL HISTORY Past Medical History: Diagnosis Date (HFpEF) heart failure with preserved ejection fraction CVA (cerebral vascular accident) Essential (primary) hypertension HLD (hyperlipidemia) Seizures PAST SURGICAL HISTORYPast Surgical History: Procedure Laterality Date OVARIAN ABSCESS DRAIN PERCUTA FAMILY HISTORYNo family history on file.SOCIAL HISTORYSocial History Socioeconomic History Marital status: Tobacco Use Smoking status: Former Packs/day: 0.50 Years: 30.00 Additional pack years: 0.00 Total pack years: 15.00 Types: Cigarettes Quit date: 11/03/2022 Years since quittin.0 Passive exposure: Current Smokeless tobacco: Never Substance and Sexual Activity Alcohol use: Not Currently Drug use: Yes Types: Amphetamines ALLERGIESAllergies Allergen Reactions Aspirin Anaphylaxis Throat swells; breaks out Fish Containing Products Unknown - See comments Mushroom Unknown - See comments REVIEW OF SYSTEMS(-)=Negative,(+)=Positive Negative except as per HPIPHYSICAL EXAMINATIONVitals: 11/24/22 1118 11/24/22 1152 11/24/22 1200 11/24/22 1300 BP: 107/63 114/64 112/69 Pulse: 57 56 56 59 Resp: SpO2: 91% 100% 100% Weight: 65.8 kg (145 lb) Height: 1.575 m (5' 2") General: NADHEENT: atraumatic, normocephalic, left-sided facial droopCardio: bradycardic, regular rhythmResp: normal effort, symmetric chest rise, saturating well on 2L NC for comfortAbd: soft, non-distended, no TTP, BS+Skin: no lesions or rashesExtremities: no edema, no cyanosisNeuro: left-sided facial droop; flaccid paralysis of LUE with lack of sensation; strength 2/5 LLE; normal right-sided strength and sensationLabs (pertinent only)/Imaging:TTE 11/01/22Summary The left ventricle is chamber size (by vol index) is normal (female - LVED vol - 29-61ml/m2). Moderate concentric LV hypertrophy. All of the LV segments contract normally . LVEF by Javed's method of disk assessment is normal (55-60%) . Grade 2 diastolic dysfunction (moderately increased LA pressure). High (cardiac index >4 L/min/m2) cardiac output state at rest is noted. Unable to estimate peak systolic PA pressure; inadequate TR velocity signal. EKG 11/06/22Ventricular Rate 62 BPM Atrial Rate 62 BPM P-R Interval 180 ms QRS Duration 90 ms Q-T Interval 454 ms QTC Calculation(Bazett) 460 ms P Latham 19 degrees R Latham 64 degrees T Latham 254 degrees Normal sinus rhythm Possible Left atrial enlargement Left ventricular hypertrophy with repolarization abnormality Abnormal ECG When compared with ECG of 01-AUG-2022 10:14, ST now depressed in Inferior leads T wave inversion more evident in Inferior leadsCT Brain 11/06/22FINDINGS: No significant interval change in previously described intraparenchymal hematoma centered at the right basal ganglia with intraventricular extent and trace acute blood products within the dependent portions of the lateral ventricles. Midline shift is increased, formerly 4 mm and now 6-7 mm. There is effacement of the right lateral ventricle with early entrapment of the left lateral ventricle and leftward subfalcine herniation. Orbits are within normal limits. No obstructive paranasal sinus disease.Hospital Course 11/13/22HOSPITAL COURSE: Geetha Minor is a 47 y.o. W with HTN, asthma, COPD, prior hx of seizures, thyroid disorder who was initially admitted to the NICU on 10/29 as a transfer from OSH for ICH likely precipitated by hypertensive emergency in setting of amphetamine use--had large R basal ganglia hemorrhage on CTH. She was intubated and sedated at OSH prior to transfer to [facility], extubated on 10/30, required nicardipine gtt and hypertonic saline, and transferred to the floor on 11/01. However on 11/06, stroke alert was called for decreased responsiveness in the setting of hypotension (BP was 70s/50s)--she was started on levophed, broad spectrum antibiotics and transferred to the NICU. Repeat CTH showed stable ICH. She remains hemodynamically stable. No infectious etiology found for her hypotension. Mentation is now improved--alert and responds to questions, continues to have L sided hemiparesis. Transferred to the floor on 11/07. Cleared by speech therapy for soft foods. Patient does need inpatient rehab level of care but unfortunately patient has no funding to support that. She will be discharged home to the care of her , she will need 24/7 assistance. UDS 10/29/22Assessment/Plan:Geetha Minor is a 47 year old female admitted with chest pain secondary to NSTEMI.NeuroRecent right basal ganglia intracranial hemorrhage (10/29/22)Seizure disorder, reportedSee above hospital course for further details. Not taking seizure medications.- STAT CT head to reassess as she is being anticoagulated- Neurosurgery consult for review of imaging and safety of anticoagulation and antiplatelets - Okay for heparin; repeat CT head if new neuro deficits develop- Sedation/Analgesia: NoneRespCOPDHx tobacco abuse- DuoNebs prn- Z0KXYbiewrzvwhgdwyVYAITSWjhrp painReported CAD HFpEFBradycardiaHTNHLDPatient presenting as a transfer from [facility] with NSTEMI. Troponin elevated here on arrival with intermittent chest pain that has since resolved. Will require ischemic work-up. Discussed safety of antiplatelets and anticoagulation with neurosurgery resident on-call; intracranial hematoma represents old blood so safe to pursue and continue anticoagulation.- Admit to CCU- Baseline admission labs: CBC, BMP, LFT, TSH, A1c, Lipid panel, UA- Trend troponin; check NT-proBNP- EKG- TTE- Bedside US for better evaluation of volume status- CXR- Will need [facility] this admission- Continue Plavix (allergic to ASA)- Consult Allergy for evaluation of desensitization protocol - Continue heparin gtt; frequent neuro checks - Monitor for changes on Neuro exam from baseline (left arm paralysis; left leg weakness 2/5)- Continue atorvastatin 40 mg po qhs- Hold home Lopressor given bradycardia- Hold home Lasix and nifedipine given current hemodynamics- LR 500 cc x1; monitor response- Keep K>4 and Mg>2- Accurate I&Os- Pressors (mcg/kg/min): NoneFEN/GIElevated liver chemistriesGERDLiver chemistries trending up compared to data obtained prior to transfer. Potentially related to congestive hepatopathy though not overtly volume overloaded on examination. Will evaluate IVC with bedside US.- Check hepatitis serologies- Trend LFTs- Protonix 40 mg po qdIDHx of tubo-ovarian abscessWill upload OSH CT scan for in-house interpretation. Will also check HIV serology as well as G/C.- Upload CT abd/pelvis for in-house read - Patient came with CT abd/pelvis report but CD itself contained only a CXR and Abd US - Will obtain new CT Abd/Pelvis with contrast for assessment of tubo-ovarian abscess once renal function improves; currently afebrile and clinically stable- Check HIV- Check gonorrhea and chlamydia RenalAKIBaseline Cr appears to be between 0.8-1.0- LR 500 cc IV x1- Monitor Cr with repeat BMP in the morning- Monitor UOP- Avoid nephrotoxic medicationsEndoNo acute concernsOtherSubstance abuse- Urine drug screenDVT prophylaxis: heparinLines/Catheters:Peripheral IV 11/24/22 Right Antecubital Inserted IRON WORKER (Active) Number of days: 0 Dispo: CCUPrognosis: GuardedCode Status: FullCHANTALE DiazGY-3, Department of Internal Medicine ssociated attestation - Zohaib Parsons MD - 11/25/2022 3:30 PM CDT I personally examined the patient and agree with Dr. Willis's note, assessment and plan as written. I actively participated in the decision-making process. I spent a total time of 80 minutes. The non-overlapping time spent for patient care includes: Pre-Charting, obtaining and/or reviewing separately obtained history (Case Everywhere and our own records), performing a full medically appropriate examination and/or evaluation, counseling and educating patient/family/caregiver, ordering not only medications but tests and/or procedures, independently interpreting prior/current results and communicating them to the patient and/or relative, ordering referrals and/or communicating with other health home health care case manager (when not separately reported), documenting clinical information in the electronic or other health record, and care coordination (not separately reported).- hemodynamically stable- Neurosurgery consult for systemic AC / DAPT in the future, given h/o ICH- allergy consult for ASA desensitizationJOSE Cierra GONZALEZ MD, [facility] [place], [facility], [facility]ERT COUNTY HOSPITALAAssistant ProfessorCardiology, Advanced Heart Failure, LVAD & Transplant ServiceDate of service: [id number] and physical [id number]-Ddbfshgr, Jose [id number] eallq-[id number]:30:41Hi story and physical [id number] 9|[id number] for patient [id number] and physical noteLNUT[address] [id number] [id number]:30:[id number] .[id number]|[id number]. [id number]
[2022-12-20] MEDS ORDERED: HYDROCODONE/APAP 7.5/325 MG TAB ONE (00:46)
--- NOTE | 2022-12-20 00:52 | EDPHYS ---
Physician Documentation [facility] Name: Geetha Khan Age: 47 yrs Sex: Female : 1975 Arrival Date: 12/20/2022 Time: 00:00 Bed 14 Private MD: ED Physician Uriel Cannon HPI: 12/20 00:34 This 47 yrs old Female presents to ER via EMS with complaints of fall. kb 00:34 Details of fall: The patient fell from seated position, potty chair. Onset: The kb symptoms/episode began/occurred just prior to arrival. Associated injuries: The patient sustained injury to the chest, tenderness. Severity of symptoms: At their worst the symptoms were mild, in the emergency department the symptoms are unchanged. The patient has not experienced similar symptoms in the past. The patient has not recently seen a physician. Pt reports she fell off of her potty chair at home and hit her chest on the hardwood floor. Reports pain to chest only, denies any other injury. Denies hitting head, loc. States she put her right arm up and covered her head.. Historical: - Allergies: 00:07 Aspirin; lg3 00:07 CRANBERRY; lg3 00:07 FISH PRODUCT DERIVATIVES; lg3 00:07 GRAPEFRUIT; lg3 00:07 mushrooms; lg3 - Home Meds: 00:07 Unable to obtain [Active]; lg3 - PMHx: 00:07 Asthma; Cerebrovascular accident; COPD; CVA; Left sided deficits.; Hypertension; lg3 Myocardial infarction; Seizures; Thyroid problem; - PSHx: 00:07 Unable to Obtain; lg3 - Immunization history:: Adult Immunizations unknown, Client reports having NOT received the Covid vaccine. Flu vaccine is not up to date. Patient has never been vaccinated. - Social history:: Smoking status: Patient reports the use of cigarette tobacco products, smokes one-half pack cigarettes per day, Patient/guardian denies using alcohol, street drugs. ROS: 00:33 Constitutional: Negative for fever, chills, and weight loss, kb 00:33 Cardiovascular: Positive for chest pain, 00:33 All other systems are negative, Exam: 00:33 Constitutional: This is a well developed, well nourished patient who is awake, alert, kb and in no acute distress. Head/Face: Normocephalic, atraumatic. ENT: Moist Mucous membranes Cardiovascular: Regular rate Respiratory: Respirations even and unlabored. No increased work of breathing. Talking in full sentences Abdomen/GI: Soft, non-tender. No distention Skin: Warm, dry with normal turgor. Normal color. 00:33 Chest/axilla: Inspection: normal, Palpation: tenderness, that is mild, 00:33 Musculoskeletal/extremity: Exam is negative for acute changes, 00:33 Neuro: Exam negative for acute changes, Vital Signs: 00:05 BP 127 / 92; Pulse 70; Resp 17 S; Temp 98.1(O); Pulse Ox 100% on R/A; Height 5 ft. 2 lg3 in. (R); 00:30 Weight 68.04 kg; ha1 01:04 BP 143 / 92; Pulse 71; Resp 18 S; Pulse Ox 100% on R/A; ha1 MDM: 00:02 Patient medically screened. kb 00:36 Differential diagnosis: contusion, fracture. Data reviewed: vital signs, nurses notes. kb 00:50 Historians other than the Patient: EMS: [facility]. Counseling: I had a detailed kb discussion with the patient and/or guardian regarding the historical points, exam findings, and any diagnostic results supporting the discharge/admit diagnosis, radiology results, the need for outpatient follow up, a family practitioner, to return to the emergency department if symptoms worsen or persist or if there are any questions or concerns that arise at home. 12/20 00:03 Order name: Chest Single View XRAY kb Administered Medications: 00:37 Drug: Hydrocodone-Acetaminophen PO (7.5 mg-325 mg) 1 tabs PO once Route: PO; ha1 Disposition: 03:30 Co-signature as Attending Physician, Uriel Cannon MD I agree with the assessment sp4 and plan of care. I reviewed the patient's care provided by Advanced Practice Provider \T\ agree w/ the diagnosis \T\ care plan. I personally saw the pt \T\ performed a substantive portion of the visit, incldng all aspects of the (History/Exam/Medical Decision Making). Disposition Summary: 12/20/22 00:51 Discharge Ordered Notes: Location: Home kb Condition: Stable kb Diagnosis - Fall from chair, initial encounter kb - Chest pain, unspecified - chest wall pain kb Followup: kb - With: Emergency Department - When: As needed - Reason: Worsening of condition Followup: kb - With: Private Physician - When: 2 - 3 days - Reason: Recheck today's complaints, Continuance of care, Re-evaluation by your physician Discharge Instructions: - Discharge Summary Sheet kb - Chest Wall Pain, Njvl-qb-Cypc kb Forms: - Medication Reconciliation Form kb - Thank You Letter kb - Antibiotic Education kb - Prescription Opioid Use kb - Patient Portal Instructions kb - Leadership Thank You Letter kb Signatures: Dispatcher [employer] EDMS Kathy Kerns, ASSISTANT TO THE PRESIDENT-C ASSISTANT TO THE PRESIDENT-Lauren Weaver RN RN lg3 Aydee Ulrich RN RN ha1 Uriel Cannon MD MD sp4
--- NOTE | 2022-12-20 00:52 | ER ---
Nurse's Notes [facility] Name: Geetha Khan Age: 47 yrs Sex: Female : 1975 Arrival Date: 12/20/2022 Time: 00:00 Bed 14 Private MD: Diagnosis: Fall from chair, initial encounter;Chest pain, unspecified-chest wall pain Presentation: 12/20 00:05 Chief complaint: Patient states: fell from sitting position off potty chair. hit chest lg3 on tile floor. complaints of chest pain 12/25. Coronavirus screen: Client denies travel out of the [place] in the last 14 days. At this time, the client does not indicate any symptoms associated with coronavirus-19. Ebola Screen: No symptoms or risks identified at this time. Initial Sepsis Screen: Does the patient meet any 2 criteria? No. Patient's initial sepsis screen is negative. Does the patient have a suspected source of infection? No. Patient's initial sepsis screen is negative. Risk Assessment: Do you want to hurt yourself or someone else? Patient reports no desire to harm self or others. Onset of symptoms was December 19, 2022. 00:05 Method Of Arrival: EMS: [facility] lg3 00:05 Acuity: CORRINA 4 lg3 Triage Assessment: 00:07 General: Appears in no apparent distress. comfortable, Behavior is calm, cooperative. lg3 Pain: Complains of pain in chest Pain does not radiate. Pain currently is 10 out of 10 on a pain scale. EENT: No deficits noted. No signs and/or symptoms were reported regarding the EENT system. Neuro: No deficits noted. Mullen Agitation-Sedation Scale (RASS): 0 - Alert and Calm Level of Consciousness is awake, alert, obeys commands, Oriented to person, place, time, situation. Cardiovascular: No deficits noted. Capillary refill < 3 seconds Clubbing of nail beds is absent JVD is absent Patient's skin is warm and dry. Respiratory: No deficits noted. Airway is patent Respiratory effort is even, unlabored, Respiratory pattern is regular, symmetrical. GI: No deficits noted. No signs and/or symptoms were reported involving the gastrointestinal system. : No deficits noted. No signs and/or symptoms were reported regarding the genitourinary system. Derm: No deficits noted. No signs and/or symptoms reported regarding the dermatologic system. Skin is intact, is healthy with good turgor, Skin is dry, Skin is normal, Skin temperature is warm. Musculoskeletal: Circulation, motion, and sensation intact. left sided deficits post stroke. Historical: - Allergies: 00:07 Aspirin; lg3 00:07 CRANBERRY; lg3 00:07 FISH PRODUCT DERIVATIVES; lg3 00:07 GRAPEFRUIT; lg3 00:07 mushrooms; lg3 - Home Meds: 00:07 Unable to obtain [Active]; lg3 - PMHx: 00:07 Asthma; Cerebrovascular accident; COPD; CVA; Left sided deficits.; Hypertension; lg3 Myocardial infarction; Seizures; Thyroid problem; - PSHx: 00:07 Unable to Obtain; lg3 - Immunization history:: Adult Immunizations unknown, Client reports having NOT received the Covid vaccine. Flu vaccine is not up to date. Patient has never been vaccinated. - Social history:: Smoking status: Patient reports the use of cigarette tobacco products, smokes one-half pack cigarettes per day, Patient/guardian denies using alcohol, street drugs. Screenin:10 [facility] ED Fall Risk Assessment (Adult) History of falling in the last 3 months, lg3 including since admission Yes- single mechanical fall (1 pt) Confusion or Disorientation No (0 pts) Intoxicated or Sedated No (0 pts) Impaired Gait Yes (1 pt) Mobility Assist Device Used Yes (1 pt) Altered Elimination No (0 pt) Score/Fall Risk Level 3 or more points = High Risk Oriented to surroundings, Maintained a safe environment, Educated pt \\T\\ family on fall prevention, incl call for assistance when getting out of bed, Assessed \\T\\ reinforced patient's understanding of fall precautions, Utilized family, sitter, or virtual planer operator as indicated. Abuse screen: Denies threats or abuse. Denies injuries from another. Nutritional screening: No deficits noted. Tuberculosis screening: No symptoms or risk factors identified. Assessment: 00:02 General: Appears comfortable, Behavior is calm, cooperative. Pain: Complains of pain in ha1 chest Pain does not radiate. Pain currently is 7 out of 10 on a pain scale. Quality of pain is described as pressure. Neuro: Level of Consciousness is awake, Oriented to person, place, time, situation. Cardiovascular: Capillary refill < 3 seconds Patient's skin is warm and dry. Respiratory: Airway is patent Respiratory effort is even, unlabored, Respiratory pattern is regular, symmetrical. Musculoskeletal: Reports pt. states " I fell and hit my chest.". Vital Signs: 00:05 BP 127 / 92; Pulse 70; Resp 17 S; Temp 98.1(O); Pulse Ox 100% on R/A; Height 5 ft. 2 lg3 in. (R); 00:30 Weight 68.04 kg; ha1 01:04 BP 143 / 92; Pulse 71; Resp 18 S; Pulse Ox 100% on R/A; ha1 ED Course: 00:02 Patient arrived in ED. kb 00:02 Kathy Kerns FNP-C is PHCP. kb 00:02 Uriel Cannon MD is Attending Physician. kb 00:07 Triage completed. lg3 00:07 Arm band placed on right wrist. lg3 00:10 Patient has correct armband on for positive identification. Placed in gown. Bed in low lg3 position. Call light in reach. Side rails up X 1. Client placed on continuous cardiac and pulse oximetry monitoring. NIBP monitoring applied. Door closed. Noise minimized. Warm blanket given. Family accompanied patient. 00:10 Patient maintains SpO2 saturation greater than 95% on room air. lg3 00:28 Chest Single View XRAY In Process Unspecified. EDMS 01:05 No provider procedures requiring assistance completed. Patient did not have IV access ha1 during this emergency room visit. 01:06 Provided Education on: follow ups. ha1 Administered Medications: 00:37 Drug: Hydrocodone-Acetaminophen PO (7.5 mg-325 mg) 1 tabs PO once Route: PO; ha1 Medication: 00:56 VIS not applicable for this client. ha1 Outcome: 00:51 Discharge ordered by . kb 01:05 Discharged to home via wheelchair, ha1 01:05 Condition: stable 01:05 Discharge instructions given to patient, family, Instructed on discharge instructions, follow up and referral plans. Demonstrated understanding of instructions, follow-up care, 01:06 Patient left the ED. ha1 Signatures: Dispatcher [employer] EDMS Kathy Kerns FNP-C FNP-Ckb Gibson, Lacie, RN RN 3 Aydee Ulrich RN RN ha1
[2022-12-20 01:12] VITALS: TEMP 98.1; O2SAT 100
[2022-12-20 01:13] VITALS: BP 143/92
--- NOTE | 2022-12-20 16:06 | RAD REPORT ---
EXAM DESCRIPTION: RAD - Chest Single View - 12/20/2022 12:26 am CLINICAL HISTORY: The patient is 47 years old and is Female; BLUNT CHEST TRAUMA TECHNIQUE: Frontal view of the chest. COMPARISON: No relevant prior studies available. FINDINGS: Lungs: Unremarkable. No consolidation. Pleural space: Unremarkable. No pneumothorax. Heart: Unremarkable. Mediastinum: Unremarkable. Bones/joints: No acute findings. IMPRESSION: No acute findings in the chest. Electronically signed by: Scott Reid MD 12/20/2022 12:35 AM CDT Due to temporary technical issues with the PACS/Fluency reporting system, reports are being signed by the in house radiologists without review as a courtesy to insure prompt reporting. The interpreting radiologist is fully responsible for the content of the report.
== END 2022-12-20 01:06 | disposition home or self-care (01) ==
LOC: ER
DX: R07.89 Other chest pain (principal); W07.XXXA Fall from chair, initial encounter; F17.210 Nicotine dependence, cigarettes, uncomplicated; Z88.6 Allergy status to analgesic agent; Z91.013 Allergy to seafood; Z91.018 Allergy to other foods
CPT/HCPCS: 71045; 99284

== ENCOUNTER 2022-12-20 15:19 | Emergency (ER) | payer OTHER ==
--- OUTSIDE RECORDS SUMMARY | 2022-12-20 15:27 | XMS REPORT | Continuity of Care Document ---
:1975 Author Organization [facility] t Address [address] [place] [address] Care Team Providers Name Role Phone PCP, PATIENT DOES NOT HAVE A Primary Care Physician UnavailZAHRA Stoner Attending Clinician Unavailable SUSIE TAI Attending Clinician Unavailable KATHY MAHMOOD Attending Clinician Unavailable MURRAY ELISE Attending Clinician Unavailable Desi Sotelo LVN Attending Clinician Zohaib Parsons MD Attending Clinician [phone] Ryne Yoder MD Attending Clinician Meghana Felix MD Attending Clinician RYNE YODER Attending Clinician Unavailable GOYO HANKINS Attending Clinician Unavailable DANYEL WHITESIDE Attending Clinician Unavailable Vijay Jenkins Attending Clinician Fredis ECHEVERRIA, Popeye In Attending Clinician Fredrick ECHEVERRIA, Aida Barreto Attending Clinician [phone] Yariel ECHEVERRIA, Clifton Negro Attending Clinician [phone] BartKristin otoole MD Attending Clinician [phone] KRISTIN SHAH Attending Clinician Unavailable Les Al MD Attending Clinician Nena Waller MD Attending Clinician Leonid Harris MD Attending Clinician CLIFTON DE LUNA Attending Clinician Unavailable DAYRON FOSTER Attending Clinician Unavailable Dayron Foster MD Attending Clinician [phone] ZAIN SALAS Attending Clinician Unavailable AMANDA [...] NSTEMI NSTEMI Disease Active Univers (non-ST (non-ST - ity of elevated elevated 00:00: [place] myocardial myocardial 00 Me dical infarction infarction Br anch ) ) Tubo-ovari Tubo-ovari Disease Active [facility] an abscess an abscess 5-21 Iqra kes 00:00: Medical 00 [place] Abdominal Abdominal Disease Recurre [facility] infection infection nce 5-16 [facility] 00:00: Medical 00 Center Pelvic Pelvic Disease Active [facility] abscess in abscess in 5-15 Iqra kes female female 00:00: Medical 00 [place] Acute Acute Disease Active 2018-[address] [facility] cholecysti cholecysti 2-03 Iqra kes tis tis 00:00: Medical 00 [place] Calculus Calculus Disease Active 2018-03 [facility] of of 2[facility]02 [facility] gallbladde gallbladde 00:00: Me dical r without r without 00 Cent er cholecysti cholecysti tis tis without without obstructio obstructio n n Transamini Transamini Disease Active 2019-[address] tis tis 2-02 [facility] 00:00: Medical 00 [place] Hypertensi Hypertensi Disease Recurre 2018- [facility] on on nce 04-19 [facility] 00:00: Medical 00 [place] Seizure Seizure Disease Recurre 2018- [facility] disorder disorder nce 2- [facility] 00:00: Medical 00 [place] Anemia Anemia Disease Active 2019- [facility] 2-[facility] 00:00: Medical 00 [place] Thrombocyt Thrombocyt Disease Active 2019- [facility] osis osis 04-19 [facility] 00:00: Medical 00 Center Allergies, Adverse Reactions, Alerts Allergy Allergy Status Severity Reaction(s) Onset Inactive Treating Comm ents Source Name Type Date Date Clinician Cranberr Propensi Active Unknown - 2022-0 Uni vers y ty to See comments 11-26 ity of adverse 00:00: [place] reaction 00 Medical s Branch Grapefru Propensi Active Unknown - 2022-0 Uni vers it ty to See comments [...] 00 PRODUCTS FISH Allergy Active High Swelling 2018- [facility] CONTAINI 2-01 NG 00:00: PRODUCTS 00 Cran[place]r Drug Active Anaphylaxis, 2018- [facility] y Allergy Hives, 2- [facility] Itching 00:00: Medical 00 Center Fish Drug Active Swelling 2018-[address] [facility] Containi Allergy 2-01 [facility] ng 00:00: Medical Products 00 Center CRANBERR Allergy Active High Anaphylaxis 2018- [facility] EH Y 2 00:00: 00 Social History Social Habit Start Date Stop Date Quantity Comments Source Gender identity [facility] Sexual orientation Univer sity of [facility] History SDOH [facility] Alcohol Std Drinks Medica l Center History SDOH [facility] Alcohol Comment Medical C enter History SDOH [facility] Transport Non-Med Medical Center History of Social 2022-11-26 2022-11-26 Univers ity of function 00:00:00 00:00:00 [facility] Cigarettes smoked 2022-11-24 2022-11-24 Univers ity of current (pack per 00:00:00 00:00:00 ) - Reported Branch Cigarette 2022-11-24 2022-11-24 University of pack-years 00:00:00 00:00:00 [facility] Tobacco use and 2022-11-24 2022-11-24 Smokeless Universit y of exposure 00:00:00 00:00:00 tobacco non-user [facility] dicmi Branch Alcohol intake 2022-11-24 2022-11-24 Ex-drinker University 00:00:00 00:00:00 (finding) [facility] History of tobacco 2022-11-03 Passive smoker Un iversity of use 00:00:00 [place] [facility] History [facility] 2022-08-06 2022-08-[address] [facility] Transport Med 00:00:00 00:00:[address] [facility] 2022-08-06 2022-08-[address] [facility] Housing Unable to 00:00:00 00:00:00 Medical Center Pay History [facility] 2022-08-06 2022-08-[address] [facility] Housing Places 00:00:00 00:00:00 Medical Ce nter Lived History [facility] 2022-08-06 2022-08-[address] [facility] Housing Homeless 00:00:00 00:00:00 Medical Center Last Year History [facility] 2019-02-15 2019-02-[address] [facility] Alcohol Binge 00:00:00 00:00:[address] History [facility] 2019-02-15 2019-02-[address] [facility] Alcohol Frequency 00:00:00 00:00:00 Medical Center Sex [birth year] Universit y of 00:00:00 00:00:00 [facility] Smoking Status Start Date Stop Date Source Ex-smoker 2022-11-24 00:00:00 2022-11-24 University o f [place] 00:00:00 [facility] Branch Occasional tobacco 2022-07-30 00:00:00 [facility] smoker Center Medications Ordered Filled Start Stop Current Ordering Indication Dosage Frequency Signature Comments Components Source Medication Medication Date Date Medication? Clinician (SIG) Name Name KCL Yes 20meq 20 mEq, Univers (KLOR-CON 9-14 Oral, ity of M20) tablet 14:00: DAILY, [facility] 20 mEq 00 First dose Medical on [place] Branch 11/29/22 at 0900, [facility] Routine QUEtiapine Yes 25mg Take 1 Unive rs 25 mg 9-13 tablet by ity of tablet 21:49: mouth in [place] [id number] the Medical morning Branch and 1 tablet in the evening. furosemide Yes 20mg Take 1 Unive rs (LASIX) 20 9-13 tablet by ity of mg tablet 21:49: mouth in [facility] 46 the Medical morning. Branch QUEtiapine Yes 25mg Take 1 Unive rs 25 mg 9-13 tablet by ity of tablet 21:49: mouth in [place] 46 the Medical morning Branch and 1 tablet in the evening. furosemide 2022-0 Yes 20mg Take 1 Unive rs (LASIX) 20 11-28 tablet by ity of mg tablet 21:49: mouth in [facility] s 46 the Medical morning. Branch [...] ity of tablet 10:17: 00:00 mouth at [place] 14 :00 bedtime. Medical Branch amLODIPine 2022- No 10mg Take 1 Univ ers 10 mg 11-28 tablet by ity of tablet 10:12: 00:00 mouth in [place] 07 :00 the Medical morning. Branch NIFEdipine 2022-2022- No 60mg Take 1 Univ ers ER 60 mg 11-28 tablet by ity o f tablet 10:12: 00:00 mouth in [place] 04 :00 the Medical morning. Branch metoprolol 2022-0 2022- No 50mg Take 1 Univ ers tartrate 11-28 tablet by ity o f (LOPRESSOR) 10:12: 00:00 [place] 50 mg 04 :00 the Medical tablet morning Branch and 1 tablet in the evening. amLODIPine 2022-0 Yes [id number] 2.5mg Take 1 Univers 2.5 mg 11-28 tablet by ity of tablet 00:00: mouth in [place] 00 the Medical morning. Branch metoprolol 2022-0 Yes [id number] 12.5mg Take 0.5 Univers tartrate 25 9-13 tablets by it y of mg tablet 00:00: [place] the Medical morning Branch and 0.5 tablets in the evening. atorvastati Yes [id number] 40mg Take 1 Univers n 40 mg 9-13 tablet by ity of tablet 00:00: mouth at [place] 00 bedtime. Medical Branch amLODIPine 0 Yes [id number] 2.5mg Take 1 Univers 2.5 mg 9-13 tablet by ity of tablet 00:00: mouth in [place] 00 the Medical morning. Branch metoprolol Yes [id number] 12.5mg Take 0.5 Univers tartrate 25 9-13 tablets by it y of mg tablet 00:00: [place] 00 the Medical morning Branch and 0.5 tablets in the evening. atorvastati Yes [id number] 40mg Take 1 Univers n 40 mg 9-13 tablet by ity of tablet 00:00: mouth at [place] 00 bedtime. Medical Branch HYDROcodone Yes 1{tbl} 1 tablet, Univers -acetaminop 11-27 Oral, ity of hen (NORCO 21:16: Q6HPRN, [place] 5) 5-325 mg 22 Starting Medi wale tablet 1 on [facility] tablet 11/27/22 at 1616, Until Discontinu ed, Routine, Pain (scale 4-6) acetaminoph Yes 650mg 650 mg, Un yoana en 11-27 Oral, ity of (TYLENOL) 21:12: Q6HPRN, [place] tablet 650 39 Starting Medic al mg on [facility] Branch 11/27/22 at 1612, Until Discontinu ed, Routine, Pain (scale 1-3) nitroglycer 2022- No [id number] .8mg 0.8 mg, Univers in 11-27 Sublingual ity of (NITROSTAT) 20:15: 19:15 , ONCE, 1 [place] sublingual 00 :00 dose, On Medic al tablet 0.8 [facility] Branch mg 11/27/22 at 1515, KASSIDY iopamidol 2022- No [id number] 80mL 80 mL, U nivers (ISOVUE 9-12 09-12 Intravenou ity o f 370-500 mL) 20:15: 19:25 s, ONCE, 1 [place] injection 00 :00 dose, On Medica l 80 mL Tue Branch 11/27/22 at 1515, Routine acetaminoph 2022- No 1{tbl} 1 tablet, Univers en-codeine 11-27 Oral, ity of (TYLENOL 11:15: 10:29 ONCE, 1 [place] #3) 300-30 00 :00 dose, On Medic al mg tablet 1 e Branch tablet 11/27/22 at 0615, Routine acetaminoph 2022-2022- No 1{tbl} 1 tablet, Univers en-codeine 11-26 Oral, ity of (TYLENOL 18:45: 18:50 ONCE, 1 [place] #3) 300-30 00 :00 dose, On Medic al mg tablet 1 [facility] tablet 11/26/22 at 1345, Routine metoprolol Yes 12.5mg 12.5 mg, U nivers tartrate 11-26 Oral, BID, ity o f (LOPRESSOR) 13:00: First dose [place] tablet 12.5 00 on Mon Medica l mg 11/26/22 at Branch 0800, Until Discontinu ed, Routine perflutren 2022- No [id number] 3mL 3 mL, IV Univers protein-A 11-25 Push, ity of microsphr 15:00: 15:00 ONCE, 1 [place] (OPTISON) 00 :00 dose, On Medica l injection 3 [place] Branch mL 11/25/22 at 1000, Routine pantoprazol Yes 40mg 40 mg, Univ ers e 11-25 Oral, ity of (PROTONIX) 14:00: DAILY, [place] EC tablet 00 First dose Medi wale 40 mg on [place] Branch 11/25/22 at 0900, Until Discontinu ed, Routine clopidogreL 2022- No 75mg 75 mg, Uni vers (PLAVIX) 75 11-25 Oral, ity of mg tablet 14:00: 14:47 DAILY, [place] 75 mg 00 :08 First dose Medical on [place] Branch 11/25/22 at 0900, Until Discontinu ed, Routine magnesium 2022- No 4g 4 g, IV Univ ers sulfate in 11-25 Piggyback, it y of water 4 04:15: 07:19 at 25 [place] gram/50 mL 00 :00 mL/hr Medical (8 %) IV Administer Branc h Piggyback 4 over 120 g Minutes, ONCE, 1 dose, On 11/24/22 at 2315, Routine atorvastati 3-0 Yes 40mg 40 mg, Univ ers n (LIPITOR) 11-25 Oral, QHS, it y of tablet 40 02:00: First dose [place] mg 00 on [facility] Medical 11/24/22 at Branch 2100, Until Discontinu ed, Routine lactated 2023-0 2023- No 500mL at 999 Unive rs ringers IV 11-2411 mL/hr, 500 it y of infusion 23:00: 12:43 mL, [place] 500 mL 00 :00 Intravenou Medical s, ONCE, 1 Branch dose, On 11/24/22 at 1800, Routine lactated 2023-0 2023- No 500mL at 125 Unive rs ringers IV 11-24 mL/hr, 500 it y of infusion 21:11: [...] 2022- No 0U/h 0-2,750 Univer s 25,000 9 09-11 Units/hr ity of Units/250 16:21: 00:06 [...] Rang e, Dosing and Testing: &nbs p;FOR [facility], [facility], AND [facility] ONLY &nbs p; - aPTT < [...] INITIAL BOLUS OR INITIAL INFUSION RATE.
furosemide 3-0 Yes 20mg QD Take 1 [facility] [...] 00 :00 by mouth Center nightly. doxycycline 2022-0 2022- No 100mg Q.5D Take [address] (MONODOX) 08-11-03 capsule [facility] 100 MG 00:00: 23:59 (100 mg Medical capsule 00 :00 total) by Center mouth in the morning and 1 capsule (100 mg total) before bedtime. Do all this for 7 days. metroNIDAZO 3-0 2022- No 500mg Q.5D Take [address] [facility] (FLAGYL) 08-11-03 tablet [facility] 500 MG 00:00: 23:59 (500 [...] Cent er tablet in the morning. atorvastati 2022-0 2023- No 40mg QD Take [address] n (LIPITOR) 5-19 05-27 tablet (40 L ukes 40 MG 00:00: 00:00 mg total) Medica l tablet 00 :00 by mouth Center nightly. metroNIDAZO 2022- No 500mg Q.[id number] Take [address] [facility] (FLAGYL) 08-03 [id number] tablet [facility]ukes 500 MG 00:00: 00:00 3D [...] mouth Medica l tablet 09 :00 daily. [place] divalproex 2018-03 Yes epilepsy 125mg QD Take [address] (DEPAKOTE) 2-04 mg by Lukes 125 MG EC 10:36: mouth Medical tablet 04 daily. [place] divalproex 2018-03 Yes epilepsy 125mg QD Take [address] (DEPAKOTE) 2-04 mg by Lukes 125 MG EC 10:36: mouth Medical tablet 04 daily. [place] divalproex 2018-03 Yes epilepsy 125mg QD Take [address] (DEPAKOTE) 2-04 mg by Lukes 125 MG EC 10:36: mouth Medical tablet 04 daily. [place] famotidine 2018-03 Yes 1{tbl} Take 1 CHI [...] Source Respiratory rate 2022-11-29 01:59:00 18 /min [facility] Oxygen saturation in 2022-11-29 01:59:00 93 /min [facility] Arterial blood by [facility] Pulse oximetry Branch Systolic blood 2022-11-29 01:23:00 126 mm[Hg] [facility] Di[facility] blood 2022-11-29 01:23:00 75 mm[Hg] [facility] Heart rate 2022-11-29 01:23:00 72 /min [facility] Body temperature 2022-11-29 01:23:00 36.94 Nahomi [facility] Body weight 2022-11-28 05:16:00 70.421 kg [facility] BMI 2022-11-28 05:16:00 28.40 kg/m2 [facility] Body height 2022-11-24 16:52:00 157.5 cm [facility] WEIGHT 2022-11-12 07:05:00 74.6 kg [...] cm Heart rate 2022-08-11 12:33:33 76 /min [facility] Respiratory rate 2022-08-11 12:33:33 18 /min [facility] Oxygen saturation in 2022-08-11 12:33:33 97 /min [facility] Arterial blood by Medical Ce nter Pulse oximetry Body temperature 2022-08-11 12:33:11 36.56 Nahomi [facility] Systolic blood 2022-08-11 12:32:45 129 mm[Hg] [facility] Diastolic blood 2022-08-11 12:32:45 80 mm[Hg] [facility] Body height 2022-08-05 19:35:[address] [facility] Body weight 2022-08-05 19:35:[address] [facility] BMI 2022-08-05 19:35:00 23.78 kg/m2 [facility] Procedures Procedure Date / Time Performing Clinician Source Performed MAGNESIUM 2022-11-28 09:22:00 Casi Maddox [facility] BASIC METABOLIC PANEL 2022-11-28 09:22:00 Casi Maddox [facility] (NA, K, CL, CO2, Medical Branch GLUCOSE, BUN, CREATININE, CA) CBC WITH DIFF 2022-11-28 09:22:00 Casi Maddox [facility] CT ANGIOGRAPHY 2022-11-27 19:24:21 Tori Hanna [facility] CORONARIES WITH CARDIAC [facility] CALCIUM SCORE CT HEAD WO CONTRAST 2022-11-27 17:24:05 Milagros Choe [facility] CBC WITHOUT DIFF 2022-11-27 09:15:00 Joel Willis [facility] MAGNESIUM 2022-11-26 09:21[facility] 2022-11-26 09:21:00 Joel Willis [facility] ([id number]) (ALB,T.PRO,BILI Medical Branch T,BU/BC,ALT,AST,ALK PHOS) BASIC METABOLIC PANEL 2022-11-26 09:21:00 Paul [facility] (NA, K, CL, CO2, Medical Branch GLUCOSE, BUN, CREATININE, CA) CBC WITH DIFF 2022-11-26 09:21:00 [facility] ACTIVATED PARTIAL 2022-11-25 22:48:00 Lazaro [facility] EKG-12 LEAD 2022-11-25 17:52:00 [facility] TROPONIN I 2022-11-25 17:51:00 Philip Chris [facility] ECG ROUTINE & RHYTHM 2022-11-25 17:39:36 Joel Willis [facility] STRIP [facility] ACTIVATED PARTIAL 2022-11-25 15:42:00 Lazaro [facility] TRANSTHORACIC ECHO (TTE) 2022-11-25 14:57:34 Joel Willis [facility] COMPLETE W/ CONTRAST Medical Bra [facility] MAGNESIUM 2022-11-25 09:20:00 Lazaro [facility] BASIC METABOLIC PANEL 2022-11-25 09:20:00 Joel Willis [facility] (NA, K, CL, CO2, Medical Branch GLUCOSE, BUN, CREATININE, CA) URINE DRUG (IMMUNOASSAY) 2022-11-25 07:32:00 Joel Willis [facility] - COMPREHENSIVE DRUG Medical Bra [facility] SCREEN GC & CHLAMYDIA AMPLIFIED 2022-11-25 07:32:00 Joel Willis [facility] ASSAY [facility] URINE DRUG (LCMSMS) - 2022-11-25 07:32:00 Joel Willis [facility] SYNTHETIC OPIATES PANEL Medical Branch CBC WITHOUT DIFF 2022-11-25 07:31:00 Lazaro [facility] ACTIVATED PARTIAL 2022-11-25 07:31:00 Lazaro [facility] URINALYSIS 2022-11-25 07:31:00 Lazaro [facility] MAGNESIUM 2022-11-25 01:31:00 [facility] BASIC METABOLIC PANEL 2022-11-25 01:31:00 [facility] (NA, K, CL, CO2, Medical Branch GLUCOSE, BUN, CREATININE, CA) ACTIVATED PARTIAL 2022-11-25 01:31:00 Lazaro [facility] TROPONIN I 2022-11-24 23:01:00 Lazaro [facility] BLOOD CULTURE SCREEN 2022-11-24 22:57:00 Lazaro [facility] XR CHEST 1 VW 2022-11-24 21:30:59 Lazaro [facility] US ABDOMEN LIMITED 2022-11-24 21:30:31 Joel Willis [facility] XR CHEST 1 VW 2022-11-24 20:37:00 Lazaro [facility] CT HEAD WO CONTRAST 2022-11-24 18:42:54 Lazaro [facility] ACTIVATED PARTIAL 2022-11-24 17:43:00 Lazaro [facility] CBC WITH DIFF 2022-11-24 16:39:00 Lazaro [facility] MRSA / MSSA SCREEN BY 2022-11-24 16:39:00 Lazaro [facility] PCR, NARES [facility] TROPONIN I 2022-11-24 16:34:00 Lazaro [facility] THYROID STIMULATING 2022-11-24 16:34:00 Lazaro [facility] HORMONE [facility] HEPATIC FUNCTION PANEL 2022-11-24 16:34:00 Joel Willis [facility] ([id number]) (ALB,T.PRO,BILI Medical Branch T,BU/BC,ALT,AST,ALK PHOS) BASIC METABOLIC PANEL 2022-11-24 16:34:00 Lazaro [facility] (NA, K, CL, CO2, Medical Branch GLUCOSE, BUN, CREATININE, CA) LIPID PANEL 2022-11-24 16:34:00 Lazaro [facility] ([id number])(TOTAL Medical Branch CHOLESTEROL, TRIGLYCERIDES, HDL) GLYCOSYLATED HEMOGLOBIN 2022-11-24 16:34:00 Joel Willis [facility] (A1C) [facility] PROTHROMBIN TIME / INR 2022-11-24 16:34:00 Joel Willis [facility] HEPATITIS B SURFACE 2022-11-24 16:34:00 Lazaro [facility] ANTIBODY Medical Branch HEPATITIS B SURFACE 2022-11-24 16:34:00 Lazaro [facility] ANTIGEN [facility] HCV ANTIBODY 2022-11-24 16:34:00 Lazaro [facility] HEPATITIS A VIRUS 2022-11-24 16:34:00 [facility]TIB[facility] IGM [facility] N-TERMINAL PRO-BNP 2022-11-24 16:34:00 Lazaro [facility] HIV 1/2 AG-AB WITH 2022-11-24 16:34:00 Lazaro [facility] REFLEX [facility] EKG-12 LEAD 2022-11-24 16:22:20 [facility] BASIC METABOLIC PANEL 2022-08-11 04:41:00 Clifton De Luna [facility] Center MAGNESIUM 2022-08-11 04:41:00 Kristin Shah [facility] CALCIUM, IONIZED 2022-08-11 04:41:00 [facility] PHOSPHORUS 2022-08-11 04:41:00 [facility] CBC W/PLT COUNT & AUTO 2022-08-11 04:41:00 [facility] DIFFERENTIAL [place] CBC W/PLT COUNT & AUTO 2022-08-11 04:41:00 [facility] BASIC METABOLIC PANEL 2022-08-10 16:09:00 [facility] SODIUM, RANDOM URINE 2022-08-10 09:33:00 [facility] UREA NITROGEN, RANDOM 2022-08-10 09:33:00 [facility] URINE [facility] CREATININE, RANDOM URINE 2022-08-10 09:33:[address] [facility] OSMOLALITY, URINE 2022-08-10 09:33:00 [facility] TSH/FREE T4 IF INDICATED 2022-08-10 09:33:[address] [facility] CORTISOL 2022-08-10 09:33:00 [facility] OSMOLALITY, SERUM 2022-08-10 09:33:00 [facility] T4, FREE 2022-08-10 09:33:00 [facility] CBC (HEMOGRAM ONLY) 2022-08-10 05:06:00 [facility] BASIC METABOLIC PANEL 2022-08-10 05:06:00 [facility] MAGNESIUM 2022-08-10 05:06:00 [facility] CBC (HEMOGRAM ONLY) 2022-08-09 03:38:00 [facility] BASIC METABOLIC PANEL 2022-08-09 03:38:00 [facility] MAGNESIUM 2022-08-09 03:38:00 [facility] CBC (HEMOGRAM ONLY) 2022-08-08 04:25:00 [facility] BASIC METABOLIC PANEL 2022-08-08 04:25:00 [facility] B-TYPE NATRIURETIC 2022-08-08 04:25:00 [facility] Medical FACTOR (BNP) [facility] STD PANEL - CT/GC RNA 2022-08-07 16:52:00 Higinio [facility] FUNGUS CULTURE + SMEAR 2022-08-07 10:22:00 [facility] ANAEROBIC CULTURE 2022-08-07 10:22:00 [facility] WOUND CULTURE + GRAM 2022-08-07 10:22:00 [facility] STAIN [facility] RADIOLOGIC GUIDANCE & 2022-08-07 10:20:00 [facility] INTERP/SPEC [facility] BASIC METABOLIC PANEL 2022-08-07 03:42:00 [facility] CBC (HEMOGRAM ONLY) 2022-08-07 03:41:[facility] CT ABDOMEN/PELVIS WITH 2022-08-06 00:22:[address] [facility] IV CONTRAST [facility] SCREEN, URINE 2022-08-05 21:06:00 OnRonal day [facility] CBC W/PLT COUNT & AUTO 2022-08-05 20:40:00 Aida Alcala [facility] DIFFERENTIAL [facility] BASIC METABOLIC PANEL 2022-08-05 20:40:00 [facility]/INR 2022-08-05 20:40:00 [facility] TYPE AND SCREEN, 2022-08-05 20:40:00 Aida Alcala [facility] AUTOMATED [facility] CBC W/PLT COUNT & AUTO 2022-08-05 20:40:00 [facility] DIFFERENTIAL [facility] (CELLAVISION MANUAL 2022-08-05 20:40:00 [facility]FF) [facility] TRANSTHORACIC ECHO FOR 2022-08-03 13:59:39 Unknown, Hl7 Doctor C [facility] RESULTS Center BASIC METABOLIC PANEL 2022-08-03 04:31:00 [facility] CBC (HEMOGRAM ONLY) 2022-08-03 04:31:00 [facility] CBC W/PLT COUNT & AUTO 2022-08-02 13:09:00 [facility] BASIC METABOLIC PANEL 2022-08-02 13:09:00 [facility] CBC W/PLT COUNT & AUTO 2022-08-02 13:09:00 [facility] (CELLAVISION MANUAL 2022-08-02 13:09:00 [facility]) [place] MYOCARDIAL PERFUSION 2022-08-01 13:31:00 [facility] SPECT, PHARM [facility] TREADMILL 2022-08-01 11:39:56 Unknown, 7 [facility](NON-NUCLEAR Center TREADMILL) ECG 12-LEAD 2022-08-01 10:14:26 Unknown, 7 [facility] ECG 12-LEAD 2022-08-01 10:14:26 Unknown, 7 [facility] ECG 12-LEAD 2022-08-01 10:13:38 Unknown, 7 [facility] ECG 12-LEAD 2022-08-01 10:13:38 Unknown, 7 [facility] CBC W/PLT COUNT & AUTO 2022-08-01 04:47:00 Leonid Harris [facility] BASIC METABOLIC PANEL 2022-08-01 04:47:00 Leonid Harris [facility] [facility] MAGNESIUM 2022-08-01 04:47:00 [facility] PHOSPHORUS 2022-08-01 04:47:00 [facility] HEMOGLOBIN A1C 2022-08-01 04:47:00 [facility] PT/APTT 2022-08-01 04:47:00 [facility] HCG, QUANTITATIVE, 2022-08-01 04:47:00 [facility] TYPE AND SCREEN, 2022-08-01 04:47:00 [facility] AUTOMATED Center CBC W/PLT COUNT & AUTO 2022-08-01 04:47:00 [facility] DIFFERENTIAL Center (CELLAVISION MANUAL 2022-08-01 04:47:00 [facility] DIFF) Center 2D ECHO W/ DOPPLER 2022-07-31 15:20:04 [facility] (CW/PW/COLOR) [facility] ECG 12-LEAD 2022-07-31 15:01:36 [facility] ECG 12-LEAD 2022-07-31 15:01:36 Unknown, Hl7 [facility] US ENDOVAGINAL EV 2022-07-31 12:52:00 [facility] US PELVIS 2022-07-31 12:52:00 [facility] US DOPPLER 2022-07-31 12:52:00 [facility] BASIC METABOLIC PANEL 2022-07-31 03:09:00 [facility] MAGNESIUM 2022-07-31 03:09:00 [facility] PHOSPHORUS 2022-07-31 03:09:00 [facility] CBC W/PLT COUNT & AUTO 2022-07-31 03:09:00 [facility] LIPID PANEL 2022-07-31 03:09:00 [facility] CBC W/PLT COUNT & AUTO 2022-07-31 03:09:00 FutalaDewayne vazquez Pis [facility] DIFFERENTIAL An Center XR CHEST 1 VIEW PORTABLE 2022-07-30 16:42:00 Dewayne Reilly P is [facility] / BEDSIDE An Center CBC W/PLT COUNT & AUTO 2022-07-30 15:38:00 Dewayne Reilly [facility] DIFFERENTIAL An Center BASIC METABOLIC PANEL 2022-07-30 15:38:00 Dewayne Reilly [facility] An Center PROTHROMBIN TIME/INR 2022-07-30 15:38:00 Dewayne Reilly Pis C [facility] An Center MAGNESIUM 2022-07-30 15:38:00 [facility] An Center CBC W/PLT COUNT & AUTO 2022-07-30 15:38:00 Dayron Foster [facility] Medical DIFFERENTIAL [facility] Plan of Care Planned Activity Planned Date Details Comments Source Future Scheduled 2025-07-31 Lipid panel (procedure) [facility] Test 00:00:00 [code = 20252252] Medical Ce nter Future Scheduled 2022-11-16 Influenza [...] [facility] 00:00:00 [code = 82502332] Medical Ce nter Future Scheduled 2021-03-18 DEPRESSION [...] cervix Medical C enter (procedure) [code = 977043908] Future Scheduled 1997 Screening for malignant [facility] Test 00:00:00 neoplasm of cervix Medical C enter (procedure) [code = 894626070] Future Scheduled 1995 DTAP/TDAP/TD VACCINES (1 [facility] [...] screening Medical Cent er (procedure) [code = 391857203] Future Scheduled [address] [...] colon Medical Ce nter (procedure) [code = 364397578] Future Scheduled 1976 Screening for malignant [facility] Test 00:00:00 neoplasm of colon Medical Ce nter (procedure) [code = 684954688] Future Scheduled 1976 Screening for malignant [facility] Test 00:00:00 neoplasm of colon Medical Ce nter (procedure) [code = 252138281] Future Scheduled 1976 Screening for malignant [facility] Test 00:00:00 neoplasm of colon Medical Ce nter (procedure) [code = 605709039] Future Scheduled 1976 Sigmoidoscopy [code = [facility]] Medical Cente r Future Scheduled 1976 CT Colonography (combo) [facility] Test 00:00:00 [code = CT Colonography [facility] (combo)] Future Scheduled 1976 Screening for malignant [facility] Test 00:00:00 neoplasm of colon Medical Ce nter (procedure) [code = 489799826] Future Scheduled 1976 Screening for malignant [facility] Test 00:00:00 neoplasm of colon Medical Ce nter (procedure) [code = 797998821] Future Scheduled 1976 Screening for malignant [facility] Test 00:00:00 neoplasm of colon Medical Ce nter (procedure) [code = 876893969] Future Scheduled 1976 Screening for malignant [facility] Test 00:00:00 neoplasm of colon Medical Ce nter (procedure) [code = 444699211] Future Scheduled 1976 Sigmoidoscopy [facility]code [facility]oscopy] Medical Cente r Encounters Start End Encounter Admission Attending Care Care Encounter Source Date/Time Date/Time Type Type Clinicians Facility Department ID 2022-11-07 Inpatient ER ZAHRA PASCUAL [facility] [id number] [facility] 19:39:43 2022-11-06 Inpatient ER SUSIE TAI [facility] [id number] [facility] 11:21:11 2022-11-06 Inpatient ER SUSIE TAI [facility] [id number] [facility] 10:39:32 2022-11-05 Inpatient ER SUSIE TAI [facility] [id number] [facility] 13:31:19 2022-11-03 Inpatient ER SUSIE TAI [facility] [id number] SLEH 10:45:25 2022-11-01 Inpatient ER SLEH [facility] [id number] [facility] 09:28:17 2022-11-01 Inpatient ER SLEH [facility] [id number] [facility] 09:11:47 2022-10-31 Inpatient ER BERSHAD, [facility]H [facility] [id number] [facility]H 00:51:03 KATHY 2022-10-31 Inpatient ER BERSHAD, SLEH [facility] [id number] [facility]H 00:50:54 KATHY 2022-10-30 Inpatient ER SLEH [facility]H [id number] SLEH 15:54:13 2022-10-30 Inpatient ER BERSHAD, SLEH [facility]H [id number] SLEH 09:14:25 KATHY 2022-10-30 Inpatient ER BERSHAD, SLEH SLEH [id number] SLEH 05:26:11 KATHY 2022-10-29 Inpatient ER BERSHAD, SLEH SLEH [id number] SLEH 17:09:25 KATHY 2022-10-29 [facility] [id number] [facility] 03:50:03 MURRAY 2022-11-29 2022-11-29 Transition MONSE Sotelo [id number] Univers 00:00:00 00:00:00 of Care Desi REDDY 350.1.13.10 it[place] [id number] [facility] [address] 2022-11-24 2022-11-28 [facility] NicoZohaib Mcduffie 1.2.840.114 [id number] Univers 11:15:00 21:45:00 Encounter Ryne Yoder 350.1.13.1 0 [facility] 4.2.7.2.686 [place] [id number] [facility] [address] 2022-11-24 2022-11-28 Inpatient U [facility] [id number] Univers 11:15:00 21:45:00 [facility] 2022-11-24 2022-11-28 Inpatient U [facility] [id number] Univers 11:15:00 21:45:00 LIZETH candice [facility] 2022-10-29 2022-11-13 Inpatient ER , [facility] [id number] SLE 02:56:00 21:30:00 GOYO 2022-11-06 2022-11-06 Inpatient ER SLE SLEH [id number] SLEH 08:32:27 00:00:00 2022-11-05 2022-11-05 Outpatient SLEH SLEH [id number] SLEH 00:00:00 00:00:00 2022-11-05 2022-11-05 Outpatient SLEH SLEH [id number] SLEH 00:00:00 00:00:00 2022-11-02 2022-11-02 Inpatient ER SUSIE TAI SLE SLEH [id number] SLEH 10:58:08 00:00:00 2022-10-29 2022-10-29 Inpatient ER PITTARD, SLEH SLEH [id number] SLEH 10:12:32 23:59:00 MURRAY 2022-10-29 2022-10-29 Inpatient ER PITTARD, SLEH SLEH [id number] SLEH 10:12:49 00:00:00 MURRAY 2022-10-29 2022-10-29 Inpatient ER PITTARD, SLEH SLEH [id number] SLEH 10:12:41 00:00:00 MURRAY 2022-08-12 2022-08-12 Telephone Laurier, [facility] [id number] 00:[facility] 00:00:00 [facility] 2022-08-05 2022-08-11 Hospital ER Popeye Mcneal [facility] [id number] [facility] 18:09:00 14:47:[address] [facility] 2022-08-05 2022-08-11 Inpatient ER PABLO, [facility] Gynecology [id number] SLE 18:09:00 14:47:00 KRISTIN 2022-08-05 2022-08-05 Travel [facility] [id number] [facility] 00:[facility]00 00:00:00 [facility] 2022-07-31 2022-08-03 Hospital UR Les Al [facility] [id number] [facility] 04:37:00 20:00:00 [facility] [place] 2022-07-31 2022-08-03 Inpatient UR [facility] Med [id number] SLE 04:37:00 20:00:00 [facility] 2022-07-30 2022-07-31 Inpatient ER [facility] Gynecology [id number] [facility] 14:07:00 04:04:00 DAYRON 2022-07-30 2022-07-31 [facility] ER [facility], [facility] [id number] [facility] [address] 14:07:00 04:04:00 Encounter [facility] 2022-07-31 2022-07-31 Orders [facility] [id number] [facility] [address] 00:00:00 00:00:00 Only [facility] 2022-07-30 2022-07-30 Travel [facility] [id number] [facility] 00:[facility]00 00:00:00 [facility] Results Test Description Test Time Test Comments Results Result Comments Source HEPATIC FUNCTION PANEL (20366) (ALB,T.PRO,BILI 2022-11-26 13 :08:17 T,BU/BC,ALT,AST,ALK PHOS) Test Item Value Reference Range Interpretation Comme nts TOTAL BILI (test code = 3979150114) 0.9 mg/dL 0.1-1.1 BILI UNCON (test code = 7217493556) 0.6 mg/dL 0.1-1.1 BILI CONJ (test code = 7485488316) 0.0 mg/dL 0.0-0.3 T PROTEIN (test code = 0145406653) 6.5 g/dL 6.3-8.2 ALBUMIN (test code = 8581552260) 4.0 g/dL 3.5-5.0 ALK PHOS (test code = 5175790612) 527 U/L 34-122 H ALTv (test code = 1742-6) 116 U/L 5-35 H AST(SGOT) (test code = 1505152710) 76 U/L 13-40 H Lab Interpretation (test code = 53096-6) Abnormal [facility] METABOLIC PANEL (NA, K, CL, CO2, GLUCOSE, BUN, CREATININE, CA)2022-11-26 10:08:01 Test Item Value Reference Range Interpretation Comments NA (test code = 136 mmol/L 135-145 9424113527) K (test code = 4.1 mmol/L 3.5-5.0 4372786324) CL (test code = 100 mmol/L 98-108 0889056425) CO2 TOTAL (test code 28 mmol/L 23-31 = 1631100109) AGAP (test code = 8 2-16 1384346017) BUN (test code = 17 mg/dL 7-23 2047762000) GLUCOSE (test code = 87 mg/dL 70-110 9465582232) CREATININE (test code 1.00 mg/dL 0.50-1.04 = 3461597427) CALCIUM (test code = 9.3 mg/dL 8.6-10.6 8570667880) eGFR (test code = 59.7 mL/min/1.73m2 9183544621) SUE (test code = SUE) Association of [...] or abnormalities in imaging tests). [facility] 10:08:01 Test Item Value Reference Range Interpretation Comments MAGNESIUM (test code = 6304014312) 1.8 mg/dL 1.7-2.4 Lab Interpretation (test code = Normal 59881-9) [facility] WITH [id number] 09:36:22 Test Item Value Reference Range Interpretation Comments WBC (test code = 4.18 See_Comment L [Automated 6690-2) message] The sy stem which generated this result transmitted reference range : 4.30 - 11.10 10*3/?L. The reference range was not used to interpret this result as normal/abnormal . RBC (test code = 3.39 See_Comment L [Automated 659-8) message] The sy stem which generated this [...] RDW-SD (test code = 42.7 fL 39.0-49.9 16973-9) RDW-CV (test code = 12.5 % 12.0-15.5 788-0) PLT (test code = 151 See_Comment L [Automated 777-3) message] The sy stem which generated this result transmitted reference range : 166 - 358 10*3/ ?L. The reference r elizabeth was not used to interpret this result as normal/abnormal . MPV (test code = 9.4 fL 9.5-12.9 L 56924-2) NRBC/100 WBC (test 0.0 See_Comment [Automat ed code = 6412099625) message] The system which generated this result transmitted reference range : 0.0 - 10.0 /100 WBCs. The refer ence range was not u sed to interpret th is result as normal/abnormal . NRBC x10^3 (test code See_Comment [Auto mated = 6000530233) message] The s ystem which generated this result transmitted reference range : 10*3/?L. The reference range was not used to interpret this result as normal/abnormal . GRAN MAT (NEUT) % 68.0 % (test code = 770-8) IMM GRAN % (test code 0.00 % = 2555031759) LYMPH % (test code = 17.7 % 736-9) MONO % (test code = 9.1 % 5905-5) EOS % (test code = 4.5 % 713-8) BASO % (test code = 0.7 % 706-2) GRAN MAT x10^3(ANC) 2.84 10*3/uL 1.88-7.09 (test code = 3553695215) IMM GRAN x10^3 (test 0.00-0.06 code = 8123571132) LYMPH x10^3 (test code 0.74 10*3/uL 1.32-3.29 L = 731-0) MONO x10^3 (test code 0.38 10*3/uL 0.33-0.92 = 742-7) EOS x10^3 (test code = 0.19 10*3/uL 0.03-0.39 711-2) BASO x10^3 (test code 0.03 10*3/uL 0.01-0.07 = 704-7) Lab Interpretation Abnormal (test code = 52309-5) [facility] (NA, K, CL, CO2, GLUCOSE, BUN, CREATININE, CA)2022-11-25 09:47:18 Test Item Value Reference Range Interpretation Comments NA (test code = 135 mmol/L 135-145 0748472982) K (test code = 5.0 mmol/L 3.5-5.0 Slight 1013032243) hemolysis CL (test code = 100 mmol/L 98-108 9348566335) CO2 TOTAL (test code 28 mmol/L 23-31 = 1886675650) AGAP (test code = 7 2-16 2724243992) BUN (test code = 20 mg/dL 7-23 Slight 6073571663) hemolysis GLUCOSE (test code = 109 mg/dL 70-110 0352329805) CREATININE (test code 1.20 mg/dL 0.50-1.04 H = 0407826286) CALCIUM (test code = 9.2 mg/dL 8.6-10.6 3562241970) eGFR (test code = 48.4 mL/min/1.73m2 1902632540) SUE (test code = SUE) Association of [...] tests). Lab Interpretation Abnormal (test code = 79883-4) [facility]20[facility]10 09:42:55 Test Item Value Reference Range Interpretation Comments MAGNESIUM (test code = 1862691552) 3.1 mg/dL 1.7-2.4 H Lab Interpretation (test code = Abnormal 11265-7) [facility]leHEPATITIS A VIRUS ANTIBODY [id number] 23:52:42 Test Item Value Reference Range Interpretation Comments HAVM 0.05 Semi-Quantitative (test code = 45769-9) SUE (test code = HAVAb IgM Interpretative SUE) Information: Reactive greater than or equal to 1.2 Biotin has been reported to cause a negative bias, interpret results relative to patient's use of biotin. [facility]leTROPONIN [id number] 23:35:43 Test Item Value Reference Range Interpretation Comments TROPONIN I (test code = 0.911 ng/mL <=0.034 H 1189204735) SUE (test code = SUE) Reference (Normal) [...] biotin. Lab Interpretation Abnormal (test code = 55146-5) [facility]leHIV [facility]/2 AG-AB WITH [id number] 21:57:58 Test Item Value Reference Range Interpretation Comments HIV 0.12 Negative Semi-quantitative (test code = 09163-5) SUE (test code = Non-reactive for HIV-1 SUE) antigen and HIV-1/HIV-2 antibodies. ?No laboratory evidence of HIV infection. ?Repeat in 2-4 weeks if acute HIV infection is suspected. [facility]leHCV [id number] 21:57:58 Test Item Value Reference Range Interpretation Comments HCV Ab (test code = 22524-2) Negative HCV Semi-Quantitative (test code = 0.01 86011-6) [facility]leHEPATITIS B SURFACE [id number] 21:57:58 Test Item Value Reference Range Interpretation Comments HBsAB (test code = Negative 5066842095) HBsAb 0.00 mIU/mL Semi-Quantitative (test code = 7303701784) SUE (test code = Interpretation: SUE) ?Hepatitis B Surface Antibody ? Negative - Patient is considered to be not immune to infection with HBV. ? ? Positive - Anti-HBs detected at greater than or equal to 12 mIU/mL. ?Patient is considered to be immune to infection with HBV. ? [facility]AT[facility] SURFACE [id number] 21:40:35 Test Item Value Reference Range Interpretation Comments HBsAg Semi-Quantitative (test code = 0.14 Negative 5195-3) [facility]leGLYCOSYLATED HEMOGLOBIN (A1C)2022-11-24 18:18:35 Test Item Value Reference Range Interpretation Comments HGB A1C (test code = 4.6 % 4.0-5.7 4548-4) SUE (test code = SUE) Reference RangesNormal: <5.7%Prediabetes: 5.7 - 6.4%Diabetes: > 6.5% Lab Interpretation (test Normal code = 00500-9) [facility]le[facility]YROID STIMULATING [id number] 17:58:24 Test Item Value Reference Range Interpretation Comments TSH (test code = 2.03 See_Comment [Automated message] 5395439207) The system [employer] generated this result transmitted ref erence range: 0.45 - 4 .70 mIU/L. The refe rence range was not u sed to interpret this result as normal/abnor mal. Lab Interpretation (test Normal code = 48980-3) [facility]leTROP[facility] [id number] 17:39:48 Test Item Value Reference Range Interpretation Comments TROPONIN I (test code = 1.340 ng/mL <=0.034 H 3519877594) SUE (test code = SUE) Reference (Normal) [...] biotin. Lab Interpretation Abnormal (test code = 23040-9) [facility]leN-TERMINAL [id number] 17:39:48 Test Item Value Reference Range Interpretation Comments NT-proBNP (test code = 2520 pg/mL <=125 H 62825-1) SUE (test code = SUE) Positive: Heart Failure Likely Lab Interpretation (test Abnormal code = 47766-9) [facility] METABOLIC PANEL (NA, K, CL, CO2, GLUCOSE, BUN, CREATININE, CA)2022-11-24 17:30:04 Test Item Value Reference Range Interpretation Comments NA (test code = 135 mmol/L 135-145 8944335198) K (test code = 3.9 mmol/L 3.5-5.0 7529367607) CL (test code = 97 mmol/L 98-108 L 3103276925) CO2 TOTAL (test code = 27 mmol/L 23-31 6968229816) AGAP (test code = 11 2-16 5630541419) BUN (test code = 23 mg/dL 7-23 3301511491) GLUCOSE (test code = 163 mg/dL 70-110 H 0467889653) CREATININE (test code = 1.40 mg/dL 0.50-1.04 H 3321567211) CALCIUM (test code = 9.4 mg/dL 8.6-10.6 1197691947) eGFR (test code = 40.5 mL/min/1.73m2 3660058040) SUE (test code = SUE) Association of [...] tests). Lab Interpretation Abnormal (test code = 12040-6) [facility]leHEPAT[facility] FUN[facility] PAN[facility] (50641) (ALB,T.PRO,BILI T,BU/BC,ALT,AST,ALK PHOS)2022-11-24 17:30:04 Test Item Value Reference Range Interpretation Comments TOTAL BILI (test code = 3818656121) 1.0 mg/dL 0.1-1.1 BILI UNCON (test code = 2757783092) 0.6 mg/dL 0.1-1.1 BILI CONJ (test code = 5691696899) 0.0 mg/dL 0.0-0.3 T PROTEIN (test code = 4269734875) 6.8 g/dL 6.3-8.2 ALBUMIN (test code = 2155261991) 4.1 g/dL 3.5-5.0 ALK PHOS (test code = 6524082530) 746 U/L 34-122 H ALTv (test code = 1742-6) 183 U/L 5-35 H AST(SGOT) (test code = 1363484720) 196 U/L 13-40 H Lab Interpretation (test code = Abnormal 59635-6) [facility]leLIPID PAN[facility] (15004)(TOTAL CHOLESTEROL, TRIGLYCERIDES, HDL)2022-11-24 17:30:04 Test Item Value Reference Range Interpretation Comments CHOL (test code = 4097987592) 113 mg/dL 120-200 L HDL (test code = 7452778653) 62 mg/dL >=50 HDLC RATIO (test code = 2495254177) 1.8 <=4.5 TRIG (test code = 0065235747) 71 mg/dL 30-170 LDL CHOL (test code = 36060-0) 37 mg/dL <=160 VLDL (test code = 8561791012) 14 mg/dL 5-60 Lab Interpretation (test code = Abnormal 83506-0) [facility] WITH [id number] 16:55:22 Test Item Value Reference Range Interpretation Comments WBC (test code = 6.05 See_Comment [Automated 6190-2) message] The sy stem which generated this result transmitted reference range : 4.30 - 11.10 10*3/?L. The reference range was not used to interpret this result as normal/abnormal . RBC (test code = 3.21 See_Comment L [Automated 384-8) message] The sy stem which generated this [...] RDW-SD (test code = 44.3 fL 39.0-49.9 14745-1) RDW-CV (test code = 12.9 % 12.0-15.5 788-0) PLT (test code = 203 See_Comment [Automated 777-3) message] The sy stem which generated this result transmitted reference range : 166 - 358 10*3/ ?L. The reference r elizabeth was not used to interpret this result as normal/abnormal . MPV (test code = 9.9 fL 9.5-12.9 48370-6) NRBC/100 WBC (test 0.0 See_Comment [Automat ed code = 2871284139) message] The system which generated this result transmitted reference range : 0.0 - 10.0 /100 WBCs. The refer ence range was not u sed to interpret th is result as normal/abnormal . NRBC x10^3 (test code See_Comment [Auto mated = 5745289862) message] The s ystem which generated this result transmitted reference range : 10*3/?L. The reference range was not used to interpret this result as normal/abnormal . GRAN MAT (NEUT) % 59.6 % (test code = 770-8) IMM GRAN % (test code 0.20 % = 5658345799) LYMPH % (test code = 28.3 % 736-9) MONO % (test code = 9.1 % 5905-5) EOS % (test code = 2.5 % 713-8) BASO % (test code = 0.3 % 706-2) GRAN MAT x10^3(ANC) 3.61 10*3/uL 1.88-7.09 (test code = 9150999425) IMM GRAN x10^3 (test 0.00-0.06 code = 4196578386) LYMPH x10^3 (test code 1.71 10*3/uL 1.32-3.29 = 731-0) MONO x10^3 (test code 0.55 10*3/uL 0.33-0.92 = 742-7) EOS x10^3 (test code = 0.15 10*3/uL 0.03-0.39 711-2) BASO x10^3 (test code 0.01-0.07 = 704-7) Lab Interpretation Abnormal (test code = 70376-2) [facility] [id number] 12:43:54 Test Item Value Reference Range Interpretation Comments POC-GLUCOSE METER 138 mg/dL 70-110 H : [facility] ([facility]ER[facility] (test code = SRIRAMTOPHER ISLAS DE, 1538) 69561: Stock Plan Administrator/Techni smiley ID = [id number] for MANDA ESPARZA [id number] 06:54:19 Test Item Value Reference Range Interpretation Comments PHOSPHORUS (BEAKER) (test code = 4.2 mg/dL 2.3-4.7 604) Stock Plan Administrator ID - [id number] 06:54:18 Test Item Value Reference Range Interpretation Comments MAGNESIUM (BEAKER) (test code = 1.7 mg/dL 1.6-2.6 627) Stock Plan Administrator ID - ADMINCBC W/PLT COUNT & AUTO [id number] 06:00:54 Test Item Value Reference Range Interpretation [...] PERCENT (BEAKER) (test code = 2801) POCT-GLUCOSE [id number] 21:38:27 Test Item Value Reference Range Interpretation Comments POC-GLUCOSE METER 88 mg/dL 70-110 : TESTED A T [facility] 6720 (BEAKER) (test code = [facility], 153) 46022: Stock Plan Administrator/Techni smiley ID = [id number] for NADEGE MORALES POCT-GLUCOSE [id number] 18:19:26 Test Item Value Reference Range Interpretation Comments POC-GLUCOSE METER 93 mg/dL 70-110 : TESTED A T [facility] 6720 (BEAKER) (test code = [facility], 153) 79575: Stock Plan Administrator/Techni smiley ID = [id number] for NONA MARY ANN, MANDA POCT-GLUCOSE [id number] 13:13:27 Test Item Value Reference Range Interpretation Comments POC-GLUCOSE METER 91 mg/dL 70-110 : TESTED A T [facility] 6720 (BEAKER) (test code = [facility], 153) 33253: Stock Plan Administrator/Techni smiley ID = [id number] for MART MARY ANN, MANDA BLOOD [id number] 12:00:51 Test Item Value Reference Range Interpretation Comments CULTURE (BEAKER) (test No growth in 5 days code = 1095) BLOOD [id number] 12:00:51 Test Item Value Reference Range Interpretation Comments CULTURE (BEAKER) (test No growth in 5 days code = 1095) The specimen volume collected for this blood culture was below the optimum (10 mL per bottle or 20 mL total). Use of lower volumes may adversely affect recovery and/or detection times of some organisms.POCT-GLUCOSE [id number] 06:46:01 Test Item Value Reference Range Interpretation Comments POC-GLUCOSE METER 102 mg/dL 70-110 : TESTED Oscar T [facility] 6720 (BEAKER) (test code = AVIN[facility] ISLAS DE, 1538) 20124: Stock Plan Administrator/Techni smiley ID = [id number] for Teresa Rose [id number] 05:48:23 Test Item Value Reference Range Interpretation Comments MAGNESIUM (BEAKER) (test code = 1.8 mg/dL 1.6-2.6 627) Stock Plan Administrator ID - [id number] 05:48:23 Test Item Value Reference Range Interpretation Comments PHOSPHORUS (BEAKER) (test code = 3.6 mg/dL 2.3-4.7 604) Stock Plan Administrator ID - MARCOBASIC METABOLIC [id number] 05:48:22 Test Item Value Reference Range Interpretation [...] not appl icable for dialysis patien ts Stock Plan Administrator ID - MARCOCBC W/PLT COUNT & AUTO [id number] 05:10:47 Test Item Value Reference Range Interpretation [...] PERCENT (BEAKER) (test code = 2801) POCT-GLUCOSE [id number] 23:44:35 Test Item Value Reference Range Interpretation Comments POC-GLUCOSE METER 93 mg/dL 70-110 : TESTED A T [facility] 6720 (BEAKER) (test code = [facility], 153) [address]: Stock Plan Administrator/Techni smiley ID = [id number] for Teresa Camejo POCT-GLUCOSE [id number] 17:35:54 Test Item Value Reference Range Interpretation Comments POC-GLUCOSE METER 108 mg/dL 70-110 : TESTED A T [facility] 6720 (BEAKER) (test code = [facility], 153) 14935: Stock Plan Administrator/Techni smiley ID = [id number] for Donna Rolle BLOOD [id number] 17:01:46 Test Item Value Reference Range Interpretation Comments CULTURE (BEAKER) (test No growth in 5 days code = 1095) The specimen volume collected for this blood culture was below the optimum (10 mL per bottle or 20 mL total). Use of lower volumes may adversely affect recovery and/or detection times of some organisms.POCT-GLUCOSE [id number] 13:41:35 Test Item Value Reference Range Interpretation Comments POC-GLUCOSE METER 99 mg/dL 70-110 : TESTED A T [facility] 6720 (BEAKER) (test code = [facility], 153) 24916: Stock Plan Administrator/Techni smiley ID = [id number] for Donna Baxter BLOOD [id number] 13:01:43 Test Item Value Reference Range Interpretation Comments CULTURE (BEAKER) (test No growth in 5 days code = 1095) POCT-GLUCOSE [id number] 07:21:17 Test Item Value Reference Range Interpretation Comments POC-GLUCOSE METER 110 mg/dL 70-110 : TESTED A T [facility] 6720 (BEAKER) (test code = [facility] [place], 1538) [address]: Stock Plan Administrator/Techni smiley ID = [id number] for Teresa Rose BASIC METABOLIC [id number] 05:31:26 Test Item Value Reference Range Interpretation [...] eGF R is based on the CKD-EPI 1 equation that d oes not use a race coefficientEsti mated GFR is not as accur ate as Creatinine María Elena zain in predicting glom erular filtration rate . Estimated GFR is not appl icable for dialysis patien ts Stock Plan Administrator ID - [id number] 05:31:26 Test Item Value Reference Range Interpretation Comments MAGNESIUM (BEAKER) (test code = 2.0 mg/dL 1.6-2.6 627) Stock Plan Administrator ID - VXOYIGKRGIQDMKX9374-51-77 05:31:26 Test Item Value Reference Range Interpretation Comments PHOSPHORUS (BEAKER) (test code = 3.6 mg/dL 2.3-4.7 604) Stock Plan Administrator ID - MARCOCBC W/PLT COUNT & AUTO [id number] 04:56:52 Test Item Value Reference Range Interpretation [...] PERCENT (BEAKER) (test code = 2801) POCT-GLUCOSE [id number] 00:26:59 Test Item Value Reference Range Interpretation Comments POC-GLUCOSE METER 135 mg/dL 70-110 H : TESTED A T [facility] 6720 (BEAKER) (test code = [facility], 1538) 32286: Stock Plan Administrator/Techni smiley ID = [id number] for Teresa Rose POCT-GLUCOSE [id number] 17:22:27 Test Item Value Reference Range Interpretation Comments POC-GLUCOSE METER 127 mg/dL 70-110 H : TESTED A T [facility] 6720 (BEAKER) (test code = [facility], 1538) 05859: Stock Plan Administrator/Techni smiley ID = [id number] for Um eh, Akumbu POCT-GLUCOSE [id number] 17:20:21 Test Item Value Reference Range Interpretation Comments POC-GLUCOSE METER 23 mg/dL 70-110 LL : TESTED A T [facility] 6720 (BEAKER) (test code = [facility], 1538) 21295: Stock Plan Administrator/Techni smiley ID = [id number] for Umeh , Akumbu POCT-GLUCOSE [id number] 12:34:42 Test Item Value Reference Range Interpretation Comments POC-GLUCOSE METER 129 mg/dL 70-110 H : TESTED A T [facility] 6720 (BEAKER) (test code = [facility], 1538) 32928: Stock Plan Administrator/Techni smiley ID = [id number] for Um eh, [place] [id number] 08:08:41 Test Item Value Reference Range Interpretation Comments MAGNESIUM (BEAKER) (test code = 1.9 mg/dL 1.6-2.6 627) Stock Plan Administrator ID - [id number] 08:08:41 Test Item Value Reference Range Interpretation Comments PHOSPHORUS (BEAKER) (test code = 3.5 mg/dL 2.3-4.7 604) Stock Plan Administrator ID - ADMINBASIC METABOLIC [id number] 08:08:40 Test Item Value Reference Range Interpretation [...] not appl icable for dialysis patien ts Stock Plan Administrator ID - ADMINPOCT-GLUCOSE [id number] 07:08:26 Test Item Value Reference Range Interpretation Comments POC-GLUCOSE METER 119 mg/dL 70-110 H : TESTED A T [facility] 6720 (BEAKER) (test code = AVINASH Dunn [facility], 1538) 85019: Stock Plan Administrator/Techni smiley ID = [id number] for Teresa Rose CBC W/PLT COUNT & AUTO [id number] 06:25:01 Test Item Value Reference Range Interpretation [...] PERCENT (BEAKER) (test code = 2801) POCT-GLUCOSE [id number] 23:32:08 Test Item Value Reference Range Interpretation Comments POC-GLUCOSE METER 97 mg/dL 70-110 : TESTED Oscar T [facility] 6720 (BEAKER) (test code = [facility] [place], 1538) 26576: Stock Plan Administrator/Techni smiley ID = [id number] for Teresa Camejo POCT-GLUCOSE [id number] 17:52:25 Test Item Value Reference Range Interpretation Comments POC-GLUCOSE METER 121 mg/dL 70-110 H : TESTED A T [facility] 6720 (BEAKER) (test code = [facility], 1538) 17949: Stock Plan Administrator/Techni smiley ID = [id number] for An Donna lucas POCT-GLUCOSE [id number] 12:24:17 Test Item Value Reference Range Interpretation Comments POC-GLUCOSE METER 106 mg/dL 70-110 : TESTED A T [facility] 6720 (BEAKER) (test code = [facility], 1538) 76158: Stock Plan Administrator/Techni smiley ID = [id number] for An Donna lucas VANCOMYCIN LEVEL, [id number] 10:00:44 Test Item Value Reference Range Interpretation Comments VANCOMYCIN TROUGH (BEAKER) (test 35.0 ug/mL 10.0-20.0 HH code = 522) Stock Plan Administrator ID - ADMINPOCT-GLUCOSE [id number] 06:04:34 Test Item Value Reference Range Interpretation Comments POC-GLUCOSE METER 98 mg/dL 70-110 : TESTED A T [facility] 6720 (BEAKER) (test code = [facility], 1538) 10769: Stock Plan Administrator/Techni smiley ID = [id number] for Andi Warren [id number] 04:34:22 Test Item Value Reference Range Interpretation Comments PHOSPHORUS (BEAKER) (test code = 4.3 mg/dL 2.3-4.7 604) Stock Plan Administrator ID - mmBASIC METABOLIC [id number] 04:34:21 Test Item Value Reference Range Interpretation [...] not appl icable for dialysis patien ts Stock Plan Administrator ID - [id number] 04:34:21 Test Item Value Reference Range Interpretation Comments MAGNESIUM (BEAKER) (test code = 2.0 mg/dL 1.6-2.6 627) Stock Plan Administrator ID - mmCBC W/PLT COUNT & AUTO [id number] 04:15:17 Test Item Value Reference Range Interpretation [...] PERCENT (BEAKER) (test code = 2801) POCT-GLUCOSE [id number] 00:10:22 Test Item Value Reference Range Interpretation Comments POC-GLUCOSE METER 102 mg/dL 70-110 : TESTED A T [facility] 6720 (BEAKER) (test code [facility], = 1538) 24872: Stock Plan Administrator/Techni smiley ID = [id number] for Andi Warren BASIC METABOLIC [id number] 19:00:42 Test Item Value Reference Range Interpretation [...] not appl icable for dialysis patien ts Stock Plan Administrator ID - JSPOCT-GLUCOSE [id number] 17:28:38 Test Item Value Reference Range Interpretation Comments POC-GLUCOSE METER 122 mg/dL 70-110 H : TESTED A T [facility] 6720 (BEAKER) (test code = [facility], 1538) 59433: Stock Plan Administrator/Techni smiley ID = [id number] for An derCandace causeya POCT-GLUCOSE [id number] 12:36:44 Test Item Value Reference Range Interpretation Comments POC-GLUCOSE METER 110 mg/dL 70-110 : TESTED A T [facility] 6720 (BEAKER) (test code = [facility], 1538) 47389: Stock Plan Administrator/Techni smiley ID = [id number] for An Candace lucasa [id number] 06:20:37 Test Item Value Reference Range Interpretation Comments MAGNESIUM (BEAKER) (test code = 2.2 mg/dL 1.6-2.6 627) Stock Plan Administrator ID - DYLFTHQPMHSGZLL2731-48-31 06:20:37 Test Item Value Reference Range Interpretation Comments PHOSPHORUS (BEAKER) (test code = 3.9 mg/dL 2.3-4.7 604) Stock Plan Administrator ID - ADMINBASIC METABOLIC [id number] 06:20:36 Test Item Value Reference Range Interpretation [...] not appl icable for dialysis patien ts Stock Plan Administrator ID - ADMINPOCT-GLUCOSE [id number] 06:09:53 Test Item Value Reference Range Interpretation Comments POC-GLUCOSE METER 69 mg/dL 70-110 L : TESTED A T [facility] 6720 (BEAKER) (test code = [facility] [place], 1538) 26293: Stock Plan Administrator/Techni smiley ID = [id number] for Andi Warren CBC W/PLT COUNT & AUTO [id number] 05:15:05 Test Item Value Reference Range Interpretation [...] code = 2801) XR ABDOMEN/KUB 1 VIEW [id number] 21:59:17 [facility] 1975 Sex: FEXAM/TECHNIQUE: XR ABDOMEN/KUB 1 VIEW PORTABLEINDICATION: Confirm corpak placementCOMPARISON: 11/05/2022.FINDINGS: Feeding tube terminates in the distal stomach. No dilated loops of largesmall bowel. No acute osseous process. Lung bases are clear.IMPRESSION:Feeding tube terminates in the distal stomach.Electronically Signed By: Carlos Preciado11/07/2022 22:01 CDTWorkstation Name: [id number] METABOLIC [id number] 18:29:04 Test Item Value Reference Range Interpretation [...] not appl icable for dialysis patien ts Stock Plan Administrator ID - BSDRUG SCREEN, URINE, [id number] 08:47:31 Test Item Value Reference Range Interpretation Comments SCAN RESULT (test see scanned report See scanned report. code = [id number]) see scanned reportPOCT-GLUCOSE [id number] 06:13:13 Test Item Value Reference Range Interpretation Comments POC-GLUCOSE METER 81 mg/dL 70-110 : TESTED A T [facility] 6720 (BEAKER) (test code = [facility] [place] [place], 1538) 01502: Stock Plan Administrator/Techni smiley ID = [id number] for Jessica Rodrigues [id number] 04:03:55 Test Item Value Reference Range Interpretation Comments PHOSPHORUS (BEAKER) (test code = 4.8 mg/dL 2.3-4.7 H 604) Stock Plan Administrator ID - EMBASIC METABOLIC [id number] 04:03:54 Test Item Value Reference Range Interpretation [...] eGF R is based on the CKD-EPI 1 equation that d oes not use a race coefficientEsti mated GFR is not as accur ate as Creatinine María Elena pittman in predicting glom erular filtration rate . Estimated GFR is not appl icable for dialysis patien ts Stock Plan Administrator ID - [id number] 04:03:54 Test Item Value Reference Range Interpretation Comments MAGNESIUM (BEAKER) (test code = 2.4 mg/dL 1.6-2.6 627) Stock Plan Administrator ID - EMHIGH SENSITIVITY TROPONIN [id number] 03:58:57 Test Item Value Reference Range Interpretation Comments HIGH SENSITIVITY 165 pg/ml See_Comment H [Automated message] TROPONIN I (test code The sy stem which = [id number]) generated this result transmitted ref erence range: <=17. Th e reference range was not used to int erpret this result as normal/abnormal . Stock Plan Administrator ID - EMThe INSPECTOR STAT High Sensitivity Troponin-I results should be used in conjunctionwith other diagnostic information such as ECG, clinical observations and information, and patient symptoms to aid in the diagnosis of [place].CBC W/PLT COUNT & AUTO [id number] 03:38:52 Test Item Value Reference Range Interpretation [...] PERCENT (BEAKER) (test code = 2801) POCT-GLUCOSE [id number] 00:25:14 Test Item Value Reference Range Interpretation Comments POC-GLUCOSE METER 88 mg/dL 70-110 : TESTED A T [facility] 6720 (BEAKER) (test code = AVINASH Dunn [facility], 1538) 05997: Stock Plan Administrator/Techni smiley ID = [id number] for Jessica Rodrigues HIGH SENSITIVITY TROPONIN [id number] 22:04:24 Test Item Value Reference Range Interpretation Comments HIGH SENSITIVITY 193 pg/ml See_Comment H [Automated message] TROPONIN I (test code The sy stem which = [id number]) generated this result transmitted ref erence range: <=17. Th e reference range was not used to int erpret this result as normal/abnormal . Stock Plan Administrator ID - DBThe INSPECTOR STAT High Sensitivity Troponin-I results should be used in conjunctionwith other diagnostic information such as ECG, clinical observations and information, and patient symptoms to aid in the diagnosis of [place].URINALYSIS W/ REFLEX URINE [id number] 15:49:18 Test Item Value Reference Range Interpretation [...] /LPF 514) SOURCE(BEAKER) (test code = 2795) Stock Plan Administrator ID - [auto]Stock Plan Administrator ID - bsPT/[id number] 15:35:00 Test Item Value Reference Range Interpretation [...] patients with mechanical heart valves.HIGH SENSITIVITY TROPONIN [id number] 15:30:15 Test Item Value Reference Range Interpretation Comments HIGH SENSITIVITY 264 pg/ml See_Comment H [Automated message] TROPONIN I (test code The sy stem which = 2100143) generated this result transmitted ref erence range: <=17. Th e reference range was not used to int erpret this result as normal/abnormal . Stock Plan Administrator ID - ADMINThe INSPECTOR STAT High Sensitivity Troponin-I results should be used in conjunction with other diagnostic information such as ECG, clinical observations and information, and patientsymptoms to aid in the diagnosis of [place]. BLOOD GAS, [id number] 15:09:57 Test Item Value Reference Range Interpretation [...] 36.0 XR CHEST 1 VIEW PORTABLE / [id number] 13:38:36 [facility] 1975 Sex: FChest, 1 view, 11/06/2022 11:58 AM.History: r/o aspiration pneumonia.Comparison: 10/30/2022.Discussion: Thecardiac silhouette is prominent but stable. Lungs areclear. There is no pneumothorax. Feeding tube terminates below thehemidiaphragm. Right IJ central line is no longer present. There are noacute osseous findings.IMPRESSION:No acute pulmonary findings.Electronically Signed By: Sage Caruso11/06/2022 13:40 CDTWorkstation Name: [id number] 2022-11-06 11:32:33 Test Item Value Reference Range Interpretation Comments PROCALCITONIN (BEAKER) (test code 0.31 ng/mL <0.05 H = 3036) SEPSIS RISK (ng/mL)Low: 0.05-0.50Intermediate: 0.51-2.00High: >=2.01HIGH SENSITIVITY TROPONIN [id number] 11:27:53 Test Item Value Reference Range Interpretation Comments HIGH SENSITIVITY 344 pg/ml See_Comment H [Automated message] TROPONIN I (test code The sy stem which = [id number]) generated this result transmitted ref erence range: <=17. Th e reference range was not used to int erpret this result as normal/abnormal . Stock Plan Administrator ID Gisele STEEL WThe INSPECTOR STAT High Sensitivity Troponin-I results should be used in conjunction with other diagnostic information such as ECG, clinical observations and information, and patient symptoms to aid in the diagnosis of [place].LACTIC ACID, [id number] 11:07:17 Test Item Value Reference Range Interpretation Comments LACTATE BLOOD VENOUS (2) (BEAKER) 0.80 mmol/L 0.50-2.00 (test code = 2872) Stock Plan Administrator ID Gisele STEEL WCT BRAIN WITHOUT IV [id number] 10:59:53 [facility] 1975 Sex: F [...] Signed By: Alexandra Liang11/06/2022 11:01 CDTWorkstation Name: [id number] 10:57:58 Test Item Value Reference Range Interpretation Comments POC-HEMATOCRIT 34 % 36-45 L : Stock Plan Administrator/Te natalieian ID = (WESLEY) (test code = 640954 for CARLOS, 185) SAMY EDDE-[id number] 10:57:58 Test Item Value Reference Range Interpretation Comments POC-GLUCOSE (WESLEY) 117 mg/dL 70-110 H : TESTE D AT [facility] 6720 (test code = 1855) [place], [address]: Stock Plan Administrator/Technkiley reis ID = [id number] for SAMY DAVIS [id number] 10:57:57 Test Item Value Reference Range Interpretation Comments POC-POTASSIUM 5.5 meq/L 3.6-5.5 : TESTED AT [facility] 6720 (BEAKER) (test code [facility], = 1540) 92228: Stock Plan Administrator/Techni smiley ID = [id number] for SAMY DAVIS [id number]-[id number] 10:57:57 Test Item Value Reference Range Interpretation Comments POC-HEMOGLOBIN 11.6 g/dL 12.0-15.0 L : TESTED AT [facility] 6720 (BEAKER) (test code [facility], = 1856) 02709: Stock Plan Administrator/Techni smiley ID = [id number] for SAMY DAVIS [id number] 10:57:52 Test Item Value Reference Range Interpretation Comments POC-SODIUM (BEAKER) 142 meq/L 135-148 : TESTED AT [facility] 67 (test code = 1542) [facility], [address]: Stock Plan Administrator/Techni smiley ID = [id number] for SAMY DAVIS POCT-BLOOD GASES, [id number] 10:57:51 Test Item Value Reference Range Interpretation [...] 7.0 meq/L -2.0-3.0 H : TESTED AT [place] [id number] ARTERIAL-POC [facility], (BEAKER) (test code 76146: = 1841) Stock Plan Administrator/Techni smiley ID = [id number] for SAMY DAVIS POCT-GLUCOSE [id number] 10:21:20 Test Item Value Reference Range Interpretation Comments POC-GLUCOSE METER 117 mg/dL 70-110 H : TESTED A T [facility] 6720 (BEAKER) (test code = AVINASH Dunn [facility], 1538) 27330: Stock Plan Administrator/Techni smiley ID = [id number] for MANDA ESPARZA POCT-GLUCOSE [id number] 05:45:28 Test Item Value Reference Range Interpretation Comments POC-GLUCOSE METER 116 mg/dL 70-110 H : TESTED A T [facility] 6720 (BEAKER) (test code = AVINASH Dunn [facility], 1538) 61186: Stock Plan Administrator/Techni smiley ID = [id number] for Teresa Rose BASIC METABOLIC [id number] 05:42:31 Test Item Value Reference Range Interpretation [...] not appl icable for dialysis patien ts Stock Plan Administrator ID - [id number] 05:40:46 Test Item Value Reference Range Interpretation Comments MAGNESIUM (BEAKER) (test code = 2.9 mg/dL 1.6-2.6 H 627) Stock Plan Administrator ID - [id number] 05:40:46 Test Item Value Reference Range Interpretation Comments PHOSPHORUS (BEAKER) (test code = 6.5 mg/dL 2.3-4.7 H 604) Stock Plan Administrator ID - ADMINCBC W/PLT COUNT & AUTO [id number] 05:38:35 Test Item Value Reference Range Interpretation [...] PERCENT (BEAKER) (test code = 2801) POCT-GLUCOSE [id number] 23:35:25 Test Item Value Reference Range Interpretation Comments POC-GLUCOSE METER 135 mg/dL 70-110 H : TESTED A T [facility] 6720 (BEAKER) (test code = [facility], 1538) 26557: Stock Plan Administrator/Techni smiley ID = [id number] for Teresa Rose POCT-GLUCOSE [id number] 17:28:48 Test Item Value Reference Range Interpretation Comments POC-GLUCOSE METER 101 mg/dL 70-110 : TESTED A T [facility] 6720 (BEAKER) (test code = [facility], 1538) 53967: Stock Plan Administrator/Techni smiley ID = [id number] for CIRA HUMPHREY BLOOD [id number] 17:00:30 Test Item Value Reference Range Interpretation Comments CULTURE (BEAKER) (test No growth in 5 days code = 1095) BLOOD [id number] 17:00:30 Test Item Value Reference Range Interpretation Comments CULTURE (BEAKER) (test No growth in 5 days code = 1095) XR ABDOMEN/KUB 1 VIEW [id number] 14:17:07 [facility] 1975 Sex: FXR ABDOMEN/KUB 1 VIEW PORTABLETECHNIQUE: Supine radiograph(s) of the abdomen and pelvis.HISTORY: corpak placementCOMPARISON: 12/04/2022IMPRESSION:Lines and tubes: Enteric tube is seen with tip in the stomachElectronically Signed By: Sarah Carrera11/05/2022 14:19 CDTWorkstation Name: [id number] 12:53:33 Test Item Value Reference Range Interpretation Comments POC-GLUCOSE METER 88 mg/dL 70-110 : TESTED A T [facility] 6720 (BEAKER) (test code = [facility], 1538) 649[address]: Stock Plan Administrator/Techni smiley ID = [id number] for CIRA ROLAND POCT-GLUCOSE [id number] 06:25:50 Test Item Value Reference Range Interpretation Comments POC-GLUCOSE METER 110 mg/dL 70-110 : TESTED A T [facility] 6720 (BEAKER) (test code = [facility], 1538) 22234: Stock Plan Administrator/Techni smiley ID = [id number] for NADEGE IVEY BASIC METABOLIC [id number] 04:16:53 Test Item Value Reference Range Interpretation [...] not appl icable for dialysis patien ts Stock Plan Administrator ID - DAMIÁN [id number] 04:16:53 Test Item Value Reference Range Interpretation Comments MAGNESIUM (BEAKER) (test code = 2.8 mg/dL 1.6-2.6 H 627) Stock Plan Administrator ID - DAMIÁN [id number] 04:16:53 Test Item Value Reference Range Interpretation Comments PHOSPHORUS (BEAKER) (test code = 5.7 mg/dL 2.3-4.7 H 604) Stock Plan Administrator ID - DAMIÁN WCBC W/PLT COUNT & AUTO [id number] 03:44:05 Test Item Value Reference Range Interpretation [...] PERCENT (BEAKER) (test code = 2801) POCT-GLUCOSE [id number] 23:25:33 Test Item Value Reference Range Interpretation Comments POC-GLUCOSE METER 114 mg/dL 70-110 H : TESTED A T [facility] 6720 (BEAKER) (test code = [facility] [employer] [facility], 153) [address]: Stock Plan Administrator/Techni smiley ID = [id number] for NADEGE IVEY [id number] 18:58:11 Test Item Value Reference Range Interpretation Comments SODIUM (BEAKER) (test code = 381) 142 meq/L 136-145 Stock Plan Administrator ID - JSPOCT-GLUCOSE [id number] 17:04:52 Test Item Value Reference Range Interpretation Comments POC-GLUCOSE METER 142 mg/dL 70-110 H : TESTED A T [facility] 6720 (BEAKER) (test code = [facility], 153) 55048: Stock Plan Administrator/Techni smiley ID = [id number] for MANDA ESPARZA POCT-GLUCOSE [id number] 12:43:34 Test Item Value Reference Range Interpretation Comments POC-GLUCOSE METER 127 mg/dL 70-110 H : TESTED A T [facility] 6720 (BEAKER) (test code = AVINASH Dunn [facility], 1538) 86[address]: Stock Plan Administrator/Techni smiley ID = [id number] for MANDA ESPARZA [id number] 12:42:31 Test Item Value Reference Range Interpretation Comments SODIUM (BEAKER) (test code = 381) 141 meq/L 136-145 Stock Plan Administrator ID - JSPOCT-GLUCOSE [id number] 05:53:11 Test Item Value Reference Range Interpretation Comments POC-GLUCOSE METER 122 mg/dL 70-110 H : TESTED A T [facility] 6720 (BEAKER) (test code = [facility] [employer] [facility], 1538) [address]: Stock Plan Administrator/Techni smiley ID = [id number] for NADEGE IVEY [id number] 04:57:58 Test Item Value Reference Range Interpretation Comments PHOSPHORUS (BEAKER) 6.1 mg/dL 2.3-4.7 H Specimen slightly (test code = 604) hemolyzed Stock Plan Administrator ID - DAMIÁN WBASIC METABOLIC [id number] 04:57:58 Test Item Value Reference Range Interpretation [...] not appl icable for dialysis patien ts Stock Plan Administrator K[employer]T [employer] [id number] 04:57:57 Test Item Value Reference Range Interpretation Comments MAGNESIUM (BEAKER) 2.7 mg/dL 1.6-2.6 H Specimen slightly (test code = 627) hemolyzed Stock Plan Administrator K[employer]T [employer] WCBC W/PLT COUNT & AUTO [id number] 04:36:11 Test Item Value Reference Range Interpretation [...] PERCENT (BEAKER) (test code = 2801) POCT-GLUCOSE [id number] 00:26:17 Test Item Value Reference Range Interpretation Comments POC-GLUCOSE METER 117 mg/dL 70-110 H : TESTED A T [facility] 6720 (BEAKER) (test code = [facility], 1538) 484[address]: Stock Plan Administrator/Techni smiley ID = [id number] for JODI LOVEJOSENADEGE [id number] 19:29:04 Test Item Value Reference Range Interpretation Comments SODIUM (BEAKER) (test code = 381) 141 meq/L 136-145 Stock Plan Administrator ID - ADMINPOCT-GLUCOSE [id number] 16:58:24 Test Item Value Reference Range Interpretation Comments POC-GLUCOSE METER 142 mg/dL 70-110 H : TESTED A T [facility] 6720 (BEAKER) (test code = [facility], 1538) 00829: Stock Plan Administrator/Techni smiley ID = [id number] for MANDA ESPARZA XR ABDOMEN/KUB 1 VIEW [id number] 13:01:43 [facility] 1975 Sex: FAbdomen , one viewHistory:Feeding tube placementComparison:10/30/2022Findings:Tip of the feeding tube is near the pylorus. Nonobstructive bowel gaspattern. Cholecystectomy clips within the right upper quadrant.Electronically Signed By: Kam Vigil MD11/03/2022 13:03 CDTWorkstation Name: [id number] 12:39:24 Test Item Value Reference Range Interpretation Comments SODIUM (BEAKER) (test code = 381) 142 meq/L 136-145 POCT-GLUCOSE [id number] 12:05:03 Test Item Value Reference Range Interpretation Comments POC-GLUCOSE METER 118 mg/dL 70-110 H : TESTED A T [facility] 6720 (BEAKER) (test code = [facility], 1538) [id number]: Stock Plan Administrator/Techni smiley ID = [id number] for MANDA ESPARZA [id number] 06:17:11 Test Item Value Reference Range Interpretation Comments PHOSPHORUS (BEAKER) (test code = 4.1 mg/dL 2.3-4.7 604) Stock Plan Administrator ID - DAMIÁN WBASIC METABOLIC [id number] 06:17:10 Test Item Value Reference Range Interpretation [...] not appl icable for dialysis patien ts Stock Plan Administrator ID - DAMIÁN [id number] 06:17:10 Test Item Value Reference Range Interpretation Comments MAGNESIUM (BEAKER) (test code = 2.4 mg/dL 1.6-2.6 627) Stock Plan Administrator ID - DAMIÁN WPOCT-GLUCOSE [id number] 05:50:21 Test Item Value Reference Range Interpretation Comments POC-GLUCOSE METER 121 mg/dL 70-110 H : TESTED A T [facility] 6720 (BEAKER) (test code = AVINASH Dunn [facility], 1538) 06[address]: Stock Plan Administrator/Techni smiley ID = [id number] for NADEGE IVEY CBC W/PLT COUNT & AUTO [id number] 05:25:22 Test Item Value Reference Range Interpretation [...] PERCENT (BEAKER) (test code = 2801) POCT-GLUCOSE [id number] 23:36:51 Test Item Value Reference Range Interpretation Comments POC-GLUCOSE METER 116 mg/dL 70-110 H : TESTED A T [facility] 6720 (BEAKER) (test code = [facility] [place], 1538) 90[address]: Stock Plan Administrator/Techni smiley ID = [id number] for NADEGE IVEY [id number] 18:30:49 Test Item Value Reference Range Interpretation Comments SODIUM (BEAKER) (test code = 381) 141 meq/L 136-145 Stock Plan Administrator ID - ADMINPOCT-GLUCOSE [id number] 17:57:14 Test Item Value Reference Range Interpretation Comments POC-GLUCOSE METER 118 mg/dL 70-110 H : TESTED A T [facility] 6720 (BEAKER) (test code = AVINASH Dunn [place], 1538) [address]: Stock Plan Administrator/Techni smiley ID = [id number] for An Donna lucas MRSA [id number] 14:39:15 Test Item Value Reference Range Interpretation Comments CULTURE (BEAKER) (test code No MRSA isolated = 1095) [id number] 13:35:39 Test Item Value Reference Range Interpretation Comments SODIUM (BEAKER) (test code = 381) 139 meq/L 136-145 Stock Plan Administrator ID - BVPOCT-GLUCOSE [id number] 13:06:41 Test Item Value Reference Range Interpretation Comments POC-GLUCOSE METER 134 mg/dL 70-110 H : TESTED A T [facility] 6720 (BEAKER) (test code = [facility] [place], 1538) 775[address]: Stock Plan Administrator/Techni smiley ID = [id number] for An Donna lucas CT BRAIN WITHOUT IV [id number] 13:00:59 [facility] : 1975 Sex: [...] Signed By: Alexandra Liang11/02/2022 13:03 CDTWorkstation Name: [id number] 06:29:29 Test Item Value Reference Range Interpretation Comments SODIUM (BEAKER) (test code = 381) 139 meq/L 136-145 BASIC METABOLIC [id number] 06:29:28 Test Item Value Reference Range Interpretation [...] not appl icable for dialysis patien ts Stock Plan Administrator ID - [id number] 06:29:28 Test Item Value Reference Range Interpretation Comments MAGNESIUM (BEAKER) (test code = 2.2 mg/dL 1.6-2.6 627) Stock Plan Administrator ID - [id number] 06:29:28 Test Item Value Reference Range Interpretation Comments PHOSPHORUS (BEAKER) (test code = 3.8 mg/dL 2.3-4.7 604) Stock Plan Administrator ID - MARCOPOCT-GLUCOSE [id number] 06:21:55 Test Item Value Reference Range Interpretation Comments POC-GLUCOSE METER 125 mg/dL 70-110 H : TESTED A T [facility] 6720 (BEAKER) (test code = [facility] [place], 1538) 67137: Stock Plan Administrator/Techni smiley ID = [id number] for NADEGE IVEY CBC W/PLT COUNT & AUTO [id number] 06:08:00 Test Item Value Reference Range Interpretation [...] PERCENT (BEAKER) (test code = 2801) POCT-GLUCOSE [id number] 00:19:06 Test Item Value Reference Range Interpretation Comments POC-GLUCOSE METER 99 mg/dL 70-110 : TESTED A T [facility] 6720 (BEAKER) (test code = [facility], 1538) 16215: Stock Plan Administrator/Techni smiley ID = [id number] for NADEGE MORALES [id number] 18:45:56 Test Item Value Reference Range Interpretation Comments SODIUM (BEAKER) (test code = 381) 140 meq/L 136-145 Stock Plan Administrator ID - ADMPOCT-GLUCOSE [id number] 18:39:21 Test Item Value Reference Range Interpretation Comments POC-GLUCOSE METER 121 mg/dL 70-110 H : TESTED A T [facility] 6720 (BEAKER) (test code [facility], = 1538) 67054: Stock Plan Administrator/Techni smiley ID = [id number] for Kristin s, [place] [id number] 14:24:36 Test Item Value Reference Range Interpretation Comments SODIUM (BEAKER) (test code = 381) 140 meq/L 136-145 Stock Plan Administrator ID - [id number] 10:06:02 Test Item Value Reference Range Interpretation Comments POTASSIUM (BEAKER) (test code = 3.8 meq/L 3.5-5.1 379) Stock Plan Administrator ID - [id number] 10:06:01 Test Item Value Reference Range Interpretation Comments MAGNESIUM (BEAKER) (test code = 2.3 mg/dL 1.6-2.6 627) Stock Plan Administrator ID - ADMVANCOMYCIN LEVEL, [id number] 09:59:39 Test Item Value Reference Range Interpretation Comments VANCOMYCIN TROUGH (BEAKER) (test 8.4 ug/mL 10.0-20.0 L code = 522) Stock Plan Administrator ID - [id number] 04:21:26 Test Item Value Reference Range Interpretation Comments MAGNESIUM (BEAKER) (test code = 2.0 mg/dL 1.6-2.6 627) Stock Plan Administrator ID - [id number] 04:21:26 Test Item Value Reference Range Interpretation Comments PHOSPHORUS (BEAKER) (test code = 3.2 mg/dL 2.3-4.7 604) Stock Plan Administrator ID - ADMINBASIC METABOLIC [id number] 04:21:25 Test Item Value Reference Range Interpretation [...] not appl icable for dialysis patien ts Stock Plan Administrator ID - ADMINCBC W/PLT COUNT & AUTO [id number] 03:36:42 Test Item Value Reference Range Interpretation [...] 0.00-1.00 PERCENT (BEAKER) (test code = 2801) [id number] 00:11:29 Test Item Value Reference Range Interpretation Comments SODIUM (BEAKER) (test code = 381) 139 meq/L 136-145 Stock Plan Administrator ID - [id number] 18:25:44 Test Item Value Reference Range Interpretation Comments SODIUM (BEAKER) (test code = 381) 139 meq/L 136-145 Stock Plan Administrator ID - esauSARS-COV2/INFLUENZA/RSV [id number] 14:03:24 Test Item Value Reference Range Interpretation Comments SARS-COV2/RT-PCR Negative Negative The SARS-Co V-2 target (test code = nucleic acids a re not 3729359) detected in thi s specimen. Negat yesika [...] individuals amanda pected of COVID-19 by the [facility] ider. INFLUENZA A RT-PCR Negative Negative The Flu A target nucleic (test code = acids are not d etected in 19100421) this specimen. INFLUENZA B RT-PCR Negative Negative The Flu B target nucleic (test code = acids are not d etected in 19100422) this specimen. RSV RT-PCR (test Negative Negative The RSV tar get nucleic code = 9607396) acids are no t detected in this [...] of the Act.Fact Sheet for Healthcare Providers:https ://www.[employer]/Documents/Xpert%20Xpress%20SARS%20CoV-2/Fact%20Sheets/302-390 2%41JNPT-YOH-4%20HEALTHCARE%20PROVIDERS%20FACT%20SHEET.pdfFact Sheet for Healthcare Patients:https://www.[employer]/Docum ents/Xpert%20Xpress%20SARS%20Cov-2/Fact%20Sheets/302-3801%85ZURC-EWH-4%20PATIENT %20FACT%20SHEET.[id number] 12:52:25 Test Item Value Reference Range Interpretation Comments SODIUM (BEAKER) (test code = 381) 135 meq/L 136-145 L Stock Plan Administrator ID - [id number] 12:52:24 Test Item Value Reference Range Interpretation Comments MAGNESIUM (BEAKER) (test code = 2.4 mg/dL 1.6-2.6 627) Stock Plan Administrator ID - esauPOCT-GLUCOSE [id number] 12:00:51 Test Item Value Reference Range Interpretation Comments POC-GLUCOSE METER 130 mg/dL 70-110 H : TESTED A T [facility] 6720 (BEAKER) ([facility] = 1538) [address]: Stock Plan Administrator/Techni smiley ID = [id number] for Latonia Connolly B-TYPE NATRIURETIC FACTOR (BNP)2022-10-31 10:43:21 Test Item Value Reference Range Interpretation Comments B-TYPE NATRIURETIC PEPTIDE (BEAKER) 568 pg/mL 0-100 H (test code = 700) Stock Plan Administrator ID - [id number] 05:07:29 Test Item Value Reference Range Interpretation Comments MAGNESIUM (BEAKER) (test code = 1.9 mg/dL 1.6-2.6 627) Stock Plan Administrator ID - [id number] 05:07:29 Test Item Value Reference Range Interpretation Comments PHOSPHORUS (BEAKER) (test code = 3.7 mg/dL 2.3-4.7 604) Stock Plan Administrator ID - ADMINBASIC METABOLIC [id number] 05:07:28 Test Item Value Reference Range Interpretation [...] De scription 1092) sq m Result G1 Ccei l or high >=90 G2 Mildly decreased [...] not appl icable for dialysis patien ts Stock Plan Administrator ID - ADMINCBC W/PLT COUNT & AUTO [id number] 04:47:13 Test Item Value Reference Range Interpretation [...] 0.00-1.00 PERCENT (BEAKER) (test code = 2801) [id number] 23:06:40 Test Item Value Reference Range Interpretation Comments SODIUM (BEAKER) (test code = 381) 133 meq/L 136-145 L Stock Plan Administrator ID - ADMINHIGH SENSITIVITY TROPONIN [id number] 22:59:43 Test Item Value Reference Range Interpretation Comments HIGH SENSITIVITY 92 pg/ml See_Comment H [Automated message] TROPONIN I (test code = The system which 0722919) generated this result transmitted ref erence range: <=17. Th e reference range was not used to int erpret this result as normal/abnormal . Stock Plan Administrator ID - ADMINThe INSPECTOR STAT High Sensitivity Troponin-I results should be used in conjunction with other diagnostic information such as ECG, clinical observations and information, and patientsymptoms to aid in the diagnosis of OK. XR ABDOMEN/KUB 1 VIEW [id number] 18:54:45 [facility] 1975 Sex: FTECHNIQUE: XR ABDOMEN/KUB 1 VIEW PORTABLEINDICATION: corpak placement.COMPARISON: 10/29/2022FINDINGS:Feeding tube tip projecting over the body of the stomach. No specificevidence for bowel obstruction. Cholecystectomy clips are noted. Supineradiographs are insensitive for detection of free intraperitoneal ai r.IMPRESSION:Feeding tube tip projects over the body of the stomach.Electronically Signed By: Mo Soares10/30/2022 18:56 CDTWorkstation Name: [id number] SENSITIVITY TROPONIN [id number] 17:30:01 Test Item Value Reference Range Interpretation Comments HIGH SENSITIVITY 123 pg/ml See_Comment H [Automated message] TROPONIN I (test code The sy stem which = 3381053) generated this result transmitted ref erence range: <=17. Th e reference range was not used to int erpret this result as normal/abnormal . Stock Plan Administrator ID - BSThe INSPECTOR STAT High Sensitivity Troponin-I results should be used in conjunctionwith other diagnostic information such as ECG, clinical observations and information, and patient symptoms to aid in the diagnosis of OK.LACTIC ACID, [id number] 17:25:59 Test Item Value Reference Range Interpretation Comments LACTATE BLOOD ARTERIAL (2) 1.0 mmol/L 0.5-2.0 (BEAKER) (test code = 2874) Stock Plan Administrator ID - [id number] 17:21:36 Test Item Value Reference Range Interpretation Comments SODIUM (BEAKER) (test code = 381) 136 meq/L 136-145 Stock Plan Administrator ID - ADMINBLOOD GAS, [id number] 14:46:08 Test Item Value Reference Range Interpretation [...] FIO2 (BEAKER) (test code = 1819) 100.0 [id number] 12:47:53 Test Item Value Reference Range Interpretation Comments SODIUM (BEAKER) (test code = 381) 137 meq/L 136-145 Stock Plan Administrator ID - JSLACTIC ACID, [id number] 12:47:37 Test Item Value Reference Range Interpretation Comments LACTATE BLOOD 2.3 mmol/L 0.5-2.0 H Specimen sligh tly ARTERIAL (2) (BEAKER) hemoly zed (test code = 2874) Stock Plan Administrator ID - JSBLOOD GAS, [id number] 12:23:19 Test Item Value Reference Range Interpretation [...] FIO2 (BEAKER) (test code = 1819) 100.0 [id number] 11:15:25 Test Item Value Reference Range Interpretation Comments PROCALCITONIN (BEAKER) (test code 0.05 ng/mL <0.05 H = 3036) SEPSIS RISK (ng/mL)Low: 0.05-0.50Intermediate: 0.51-2.00High: >=2.01HIGH SENSITIVITY TROPONIN [id number] 11:10:59 Test Item Value Reference Range Interpretation Comments HIGH SENSITIVITY 139 pg/ml See_Comment H [Automated message] TROPONIN I (test code The arvind dsouza which = 0890766) generated this result transmitted ref erence range: <=17. Th e reference range was not used to int erpret this result as normal/abnormal . Stock Plan Administrator ID - JSThe INSPECTOR STAT High Sensitivity Troponin-I results should be used in conjunctionwith other diagnostic information such as ECG, clinical observations and information, and patient symptoms to aid in the diagnosis of OK.XR CHEST 1 VIEW PORTABLE / [id number] 10:47:01 [facility] : 1975 Sex: FCLINICAL HISTORY: desaturationTECHNIQUE: 1 view of the chest.COMPARISON: 10/29/2022IMPRESSION:ETT no longer seen. New feeding tube below the diaphragm. Right centralline remains in the right atrium. There are mildly increased bilaterallower lung airspace opacities with blunting of both costophrenic angles.The cardiomediastinal silhouette is magnified by technique.Electronically Signed By: Yeyo Mills10/30/2022 10:49 CDTWorkstation Name: [id number] BRAIN WITHOUT IV [id number] 09:21:03 [facility] : 1975 Sex: [...] Signed By: Luís Mclain10/30/2022 09:23 CDTWorkstation Name: [id number] 04:21:01 Test Item Value Reference Range Interpretation Comments PHOSPHORUS (BEAKER) (test code = 3.2 mg/dL 2.3-4.7 604) Stock Plan Administrator ID - EMBASIC METABOLIC [id number] 04:21:00 Test Item Value Reference Range Interpretation [...] not appl icable for dialysis patien ts Stock Plan Administrator ID - [id number] 04:21:00 Test Item Value Reference Range Interpretation Comments MAGNESIUM (BEAKER) (test code = 1.7 mg/dL 1.6-2.6 627) Stock Plan Administrator ID - EMCBC W/PLT COUNT & AUTO [id number] 03:30:03 Test Item Value Reference Range Interpretation [...] 0.00-1.00 PERCENT (BEAKER) (test code = 2801) [id number] 00:34:48 Test Item Value Reference Range Interpretation Comments SODIUM (BEAKER) (test code = 381) 137 meq/L 136-145 Stock Plan Administrator ID - ADMINXR ABDOMEN/KUB 1 VIEW [id number] 18:55:43 [facility] IV[facility]NLAWGEETHA L : 1975 Sex: FTECHNIQUE: XR ABDOMEN/KUB [...] Signed By: Mo Soares10/29/2022 18:57 CDTWorkstation Name: [id number] 2022-10-29 18:31:20 Test Item Value Reference Range Interpretation Comments SODIUM (BEAKER) (test code = 381) 138 meq/L 136-145 Stock Plan Administrator ID - ADMINCREATININE, RANDOM [id number] 15:21:04 Test Item Value Reference Range Interpretation Comments CREATININE URINE (BEAKER) (test 24.5 mg/dL code = 375) Reference Range: No NormalsOperator ID - ADMINRAPID DRUG SCREEN, [id number] 14:06:15 Test Item Value Reference Range Interpretation [...] situations. Chain of custody not maintained. Some djpa-fkf-igkxpak medications, as well as adulterants, may cause inaccurate results. Clinical correlation should be applied. A more comprehensive drug screen or confirmation of a detected drug may be performed upon request.Stock Plan Administrator ID - JSOperator ID - [auto] HEMOGLOBIN [id number] 13:23:17 Test Item Value Reference Range Interpretation Comments HEMOGLOBIN A1C 4.5 % See_Comment [Automated m essage] ELECTROPHORESIS (BEAKER) [...] 5.7- 6.4% indicates increased risk for diabetes (prediabetes)."Stock Plan Administrator ID - ADMOperator ID - ADMCTA [id number] 13:16:45 [facility] : 1975 Sex: FCT BRAIN WITHOUT IV CONTRAST, CTA CAROTID, CTA BRAINBRAIN CT WITHOUT CONTRASTINDICATION: Unlisted Reason for Exam, intraparenchymal hematomaCOMPARISON: NoneTECHNIQUE:Rapid acquisition spiral images were obtained between the aortic archand the cranial vertex during intravenous contrast infusion toreconstruct axial images and angiographic 3D maximum intensityprojections (MIP). 3-D volumetric reformatted images were created at [employer] workstation. Precontrast images of the brain were [...] Signed By: Luís Mclain10/29/2022 13:18 CDTWorkstation Name: [id number] BRAIN WITHOUT IV [id number] 13:16:45 [facility] : 1975 Sex: FCT BRAIN WITHOUT IV CONTRAST, CTA CAROTID, CTA BRAINBRAIN CT WITHOUT CONTRASTINDICATION: Unlisted Reason for Exam, intraparenchymal hematomaCOMPARISON: NoneTECHNIQUE:Rapid acquisition spiral images were obtained between the aortic archand the cranial vertex during intravenous contrast infusion toreconstruct axial images and angiographic 3D maximum intensityprojections (MIP). 3-D volumetric reformatted images were created at [employer] workstation. Precontrast images of the brain were [...] Signed By: Luís Mclain10/29/2022 13:18 CDTWorkstation Name: [id number] [id number] 13:16:45[facility] Irineo : 1975 Sex: FCT BRAIN WITHOUT IV CONTRAST, CTA CAROTID, CTA BRAINBRAIN CT WITHOUT CONTRASTINDICATION: Unlisted Reason for Exam, intraparenchymal hematomaCOMPARISON: NoneTECHNIQUE:Rapid acquisition spiral images were obtained between the aortic archand the cranial vertex during intravenous contrast infusion toreconstruct axial images and angiographic 3D maximum intensityprojections (MIP). 3-D volumetric reformatted images were created at [employer] workstation. Precontrast images of the brain were [...] Signed By: Luís Mclain10/29/2022 13:18 CDTWorkstation Name: [id number], QUANTITATIVE, [id number] 13:15:24 Test Item Value Reference Range Interpretation Comments GONADOTROPIN, CHORIONIC (HCG) QUANT < mIU/mL 0-10 (REAC FuelAKER) (test code = 649) Non- Females: <10 mIU/mL Females: Gestation Age Reference Range(mIU/mL) 0.2-1 Week 5-50 1-2 Weeks 50-500 2-3 Weeks 100-5,000 3-4 Weeks 500-10,000 4-5 Weeks 1,000-50,000 5-6 Weeks 10,000-100,000 6-8 Weeks 15,000- 200,000 2-3 Months 10,000-100,000 Stock Plan Administrator ID - MARCOOSMOLALITY, [id number] 13:07:55 Test Item Value Reference Range Interpretation Comments OSMOLALITY URINE 529 mOsm/kg See_Comment [Automated message] ([employer]) (test code = The sy stem which 614) generated this result transmitted ref erence range: 50-1,200 mOsm/kg. The reference range was not used to int erpret this result as normal/abnormal . UREA NITROGEN, RANDOM [id number] 12:57:04 Test Item Value Reference Range Interpretation Comments UREA NITROGEN URINE (BEAKER) (test 186 mg/dL code = 538) Reference Range: No NormalsOperator ID - JSSODIUM, RANDOM [id number] 12:57:03 Test Item Value Reference Range Interpretation Comments SODIUM URINE (BEAKER) (test code = 155 meq/L 243) Reference Range: No NormalsOperator ID - JSOSMOLALITY, [id number] 12:52:21 Test Item Value Reference Range Interpretation Comments OSMOLALITY, SERUM (BEAKER) (test 290 mOsm/kg 275-295 code = 615) [id number] 12:52:14 Test Item Value Reference Range Interpretation Comments SODIUM (BEAKER) (test code = 381) 140 meq/L 136-145 Stock Plan Administrator ID - MARCOPREGNANCY SCREEN, [id number] 09:52:55 Test Item Value Reference Range Interpretation Comments TEST URINE (BEAKER) (test Negative Negative code = 583) BLOOD GAS, [id number] 08:02:40 Test Item Value Reference Range Interpretation [...] (BEAKER) (test code = 1819) 40.0 T4, [id number] 06:13:37 Test Item Value Reference Range Interpretation Comments FREE T4 (BEAKER) (test code = 655) 0.90 ng/dL 0.70-1.48 Stock Plan Administrator ID - ADMINTSH/FREE T4 IF [id number] 05:34:42 Test Item Value Reference Range Interpretation Comments THYROID STIMULATING HORMONE 6.331 uIU/mL 0.350-4.940 H (BEAKER) (test code = 772) Stock Plan Administrator ID - [id number] 05:26:57 Test Item Value Reference Range Interpretation Comments MAGNESIUM (BEAKER) (test code = 1.8 mg/dL 1.6-2.6 627) Stock Plan Administrator ID - [id number] 05:26:57 Test Item Value Reference Range Interpretation Comments PHOSPHORUS (BEAKER) (test code = 3.0 mg/dL 2.3-4.7 604) Stock Plan Administrator ID - MARCOCOMPREHENSIVE METABOLIC [id number] 05:26:56 Test Item Value Reference Range Interpretation [...] not appl icable for dialysis patien ts Stock Plan Administrator ID - MARCOXR CHEST 1 VIEW PORTABLE / [id number] 05:03:50 [facility] : 1975 Sex: FXR [...] Signed By: Jaziel Monte10/29/2022 05:05 CDTWorkstation Name: [id number] 04:56:04 Test Item Value Reference Range Interpretation Comments PARTIAL THROMBOPLASTIN TIME 30.4 seconds 22.5-36.0 (BEAKER) (test code = 760) PROTHROMBIN TIME/[id number] 04:55:22 Test Item Value Reference Range Interpretation Comments PROTIME (BEAKER) 13.6 seconds 11.9-14.2 (test code = 759) INR (BEAKER) (test 1.06 See_Comment [Automat ed message] code = 370) The system [employer] generated this result transmitted ref erence range: <=5.90. The reference range was not used to int erpret this result as normal/abnormal . RECOMMENDED COUMADIN/WARFARIN INR THERAPY RANGESSTANDARD DOSE: 2.0 - 3.0 Includes: PROPHYLAXIS for venous thrombosis, systemic embolization; TREATMENT for venous thrombosis and/or pulmonary embolus.HIGH RISK: Target INR is 2.5-3.5 for patients with mechanical heart valves.CBC W/PLT COUNT & AUTO [id number] 04:50:18 Test Item Value Reference Range Interpretation [...] (BEAKER) (test code = 2801) BLOOD GAS, [id number] 04:03:20 Test Item Value Reference Range Interpretation [...] (BEAKER) (test code = 1819) 60.0 CALCIUM, [id number] 03:59:22 Test Item Value Reference Range Interpretation Comments CALCIUM IONIZED (BEAKER) (test 1.09 mmol/L 1.12-1.27 L code = 698) PH, BLOOD (BEAKER) (test code = 7.33 1810) Fungus culture + [id number] 08:28:10 Test Item Value Reference Range Interpretation Comments Result (test code = No fungus isolated in 6463-4) 28 days Fungus Smear (test No fungal elements seen code = 1406) [facility] + [id number] 08:28:10 Test Item Value Reference Range Interpretation Comments CULTURE (BEAKER) (test No fungus isolated in code = 1095) 28 days FUNGUS SMEAR (BEAKER) No fungal elements seen (test code = 1406) [id number] 05:54:28 Test Item Value Reference Range Interpretation Comments MAGNESIUM (BEAKER) (test code = 1.9 mg/dL 1.6-2.6 627) Stock Plan Administrator ID - [id number] 05:54:28 Test Item Value Reference Range Interpretation Comments PHOSPHORUS (BEAKER) (test code = 5.2 mg/dL 2.3-4.7 H 604) Stock Plan Administrator ID - MARCOBASIC METABOLIC [id number] 05:54:27 Test Item Value Reference Range Interpretation [...] not appl icable for dialysis patien ts Stock Plan Administrator ID - MARCOCBC W/PLT COUNT & AUTO [id number] 05:42:51 Test Item Value Reference Range Interpretation [...] PERCENT (BEAKER) (test code = 2801) CALCIUM, [id number] 05:36:04 Test Item Value Reference Range Interpretation Comments CALCIUM IONIZED (BEAKER) (test 1.12 mmol/L 1.12-1.27 code = 698) PH, BLOOD (BEAKER) (test code = 7.42 1810) Anaerobic [id number] 02:03:45 Test Item Value Reference Range Interpretation Comments Result (test code = No anaerobes isolated 6463-4) [facility]ANAEROBIC [id number] 02:03:45 Test Item Value Reference Range Interpretation Comments CULTURE (BEAKER) (test No anaerobes isolated code = 1095) STD Panel - CT/GC [id number] 17:37:44 Test Item Value Reference Interpretation Comments Range C. trachomatis NOT DETECTED RNA, TMA (test code = 7936062) N. gonorrhoeae NOT DETECTED REFERENCE RA NGE: NOT RNA, TMA (test DETECTED Meth odology: code = 7308897) Transcriptio n Mediated Amplification ( TMA)to detect RNA. The analytical perf ormance characteristics of thisassay, when used to test SurePat h(TM) specimens haveb een determined by [employer]. Th e modificationsha ve not been cleared or approved by the FDA. This assayhas b een validated pursu ant to the CLIA regula tions andis used for clinical purpos es. For additional information, pl ease refer tohttps://educa tion.Cardia/faq /XQT572(This li nk is being provided for informational/e ducatio nal purposes on ly.) SUE (test code = Performing Lab SUE) *QDID [employer] [facility] [address] [place] [address] Kiley Gresham MD, PhD [facility]OL[facility] [id number] 16:40:09 Test Item Value Reference Range Interpretation [...] as accur ate as Creatinine María Elena zian in predicting glom erular filtration rate . Estimated GFR is not appl icable for dialysis patien ts Stock Plan Administrator ID - BSOsmolality, meppk6077-27-07 12:43:16 Test Item Value Reference Range Interpretation Comments Osmolality, Ur (test code 245 See_Comment [ Automated message] = 2695-5) The system [employer] generated this result transmitted ref erence range: 50-1,200 mOsm/kg mOsm/kg . The reference range was not used to int erpret this result as normal/abnormal . Lab Interpretation (test Normal code = 63414-6) [facility]atoriumOSMOLALITY, [id number] 12:43:16 Test Item Value Reference Range Interpretation Comments OSMOLALITY URINE 245 mOsm/kg See_Comment [Automated message] (BEAKER) (test code = The sy stem which 614) generated this result transmitted ref erence range: 50-1,200 mOsm/kg. The reference range was not used to int erpret this result as normal/abnormal . Sodium, random [id number] 11:48:27 Test Item Value Reference Range Interpretation Comments Sodium Urine (test 82 meq/L code = 2955-3) SUE (test code = Reference Range: No SUE) NormalsOperator ID - ADMIN [facility]atoriumUrea Nitrogen, random [id number] 11:48:27 Test Item Value Reference Range Interpretation Comments Urea Nitrogen, Ur 121 mg/dL (test code = 3095-7) SUE (test code = Reference Range: No SUE) NormalsOperator ID - ADMIN [facility] CenterODIUM, RANDOM [id number] 11:48:27 Test Item Value Reference Range Interpretation Comments SODIUM URINE (BEAKER) (test code = 82 meq/L 243) Reference Range: No NormalsOperator ID - ADMINUREA NITROGEN, RANDOM URINE 2022-08-10 11:48:27 Test Item Value Reference Range Interpretation Comments UREA NITROGEN URINE (BEAKER) (test 121 mg/dL code = 538) Reference Range: No NormalsOperator ID - ADMINCreatinine, random [id number] 11:48:26 Test Item Value Reference Range Interpretation Comments Creatinine, Ur 20.9 mg/dL (test code = 2161-8) SUE (test code = Reference Range: No SUE) NormalsOperator ID - ADMIN [facility]atoriumCREATININE, RANDOM [id number] 11:48:26 Test Item Value Reference Range Interpretation Comments CREATININE URINE (BEAKER) (test 20.9 mg/dL code = 375) Reference Range: No NormalsOperator ID - ADMINWound culture + gram stain 2022-08-10 11:24:49 Test Item Value Reference Range Interpretation Comments Result (test code = No growth 6463-4) Gram Stain Result <1+ gram positive cocci (test code = 1123) in pairs [facility] C[facility] + GRAM [id number] 11:24:49 Test Item Value Reference Range Interpretation Comments CULTURE (BEAKER) (test No growth code = 1095) GRAM STAIN RESULT 4+ WBCs (BEAKER) (test code = 1123) GRAM STAIN RESULT <1+ gram positive cocci (BEAKER) (test code = in pairs 21336) T4, [id number] 11:12:44 Test Item Value Reference Range Interpretation Comments FREE T4 (BEAKER) (test code = 655) 1.25 ng/dL 0.70-1.48 Stock Plan Administrator ID - AAHAMIDOSMOLALITY, [id number] 11:11:51 Test Item Value Reference Range Interpretation Comments OSMOLALITY, SERUM (BEAKER) (test 271 mOsm/kg 275-295 L code = 615) TSH/FREE T4 IF [id number] 10:36:27 Test Item Value Reference Range Interpretation Comments THYROID STIMULATING HORMONE 10.385 uIU/mL 0.350-4.940 H (BEAKER) (test code = 772) Stock Plan Administrator ID - MPANWIDAAKXJEEO7678-86-08 10:30:32 Test Item Value Reference Range Interpretation Comments CORTISOL, TOTAL (BEAKER) (test 11.9 ug/dL 3.7-19.4 code = 2755) Stock Plan Administrator ID - AAHAMIDCT, DRAINAGE, SOFT TISSUE FLUID [id number] 09:56:00Reason for exam:->tubo-ovarian abscess [facility] 1975 Sex: [...] MDReport Verified Date/Time: 08/10/2022 09:56:28 Reading Location: [address] Neuro Reading Room BASIC METABOLIC [id number] 06:16:41 Test Item Value Reference Range Interpretation [...] not appl icable for dialysis patien ts Stock Plan Administrator ID - ADMINSpecimen slightly gbwrgeiGSLMIFVBZ2823-68-46 06:16:41 Test Item Value Reference Range Interpretation Comments MAGNESIUM (BEAKER) 1.9 mg/dL 1.6-2.6 Specimen slightly (test code = 627) hemolyzed Stock Plan Administrator ID - ADMINCBC (HEMOGRAM ONLY)2022-08-10 05:54:45 Test [...] 0-0 CELLS (BEAKER) (test code = 413) [id number] 04:19:50 Test Item Value Reference Range Interpretation Comments MAGNESIUM (BEAKER) (test code = 1.3 mg/dL 1.6-2.6 L 627) Stock Plan Administrator ID - MMBASIC METABOLIC [id number] 04:19:50 Test Item Value Reference Range Interpretation [...] not appl icable for dialysis patien ts Stock Plan Administrator ID - MMSpecimen slightly ictericCBC (HEMOGRAM ONLY)2022-08-09 [...] (BEAKER) (test code = 413) BASIC METABOLIC [id number] 06:27:34 Test Item Value Reference Range Interpretation [...] not appl icable for dialysis patien ts Stock Plan Administrator ID - DAMIÁN WSpecimen slightly ictericB-TYPE NATRIURETIC FACTOR (BNP) 2022-08-08 05:56:50 Test Item Value Reference Range Interpretation Comments B-TYPE NATRIURETIC PEPTIDE (BEAKER) 202 pg/mL 0-100 H (test code = 700) Stock Plan Administrator ID - BSCBC (HEMOGRAM ONLY)2022-08-08 05:36:13 Test [...] (BEAKER) (test code = 413) BASIC METABOLIC [id number] 05:39:11 Test Item Value Reference Range Interpretation [...] not appl icable for dialysis patien ts Stock Plan Administrator ID - ADMINSpecimen slightly ictericCBC (HEMOGRAM ONLY)2022-08-07 [...] 0-0 (BEAKER) (test code = 413) CT, [id number] 07:32:00Unlisted Reason for Exam - Click Yes and Enter Reason Below->NoProtocol Please Specify:->Standard ProtocolWill this procedure require oral contrast?->No [facility] 1975 Sex: [...] MDReport Verified Date/Time: 08/06/2022 07:32:46 Reading Location: [facility] Diagnostic Imaging Reading Room - [place] [address] Pregnancy Screen, urine 2022-08-05 21:59:05 Test Item Value Reference Range Interpretation Comments Preg Test, Ur (test code = 2112-1) Negative Negative Lab Interpretation (test code = Normal 65098-3) [facility]atoriumPREGNANCY SCREEN, [id number] 21:59:05 Test Item Value Reference Range Interpretation [...] CONCENTRATION Adequate (CELLAVISION)(BEAKER) (test code = 3438) Stock Plan Administrator ID - Salena comments: Slide comments:BASIC METABOLIC [...] not appl icable for dialysis patien ts Stock Plan Administrator ID - ADMINSpecimen slightly ictericPROTHROMBIN TIME/[id number] 21:25:45 Test Item Value Reference Range Interpretation [...] mechanical heart valves.CBC W/PLT COUNT & AUTO [id number] 21:20:49 Test Item Value Reference Range Interpretation [...] (BEAKER) (test code = 413) Transthoracic echo [id number] 16:18:18Ejection FractionSLEH ECHO HEARTLAB MKCKESSON [facility] [id number] 05:26:56 Test Item Value Reference Range Interpretation [...] not appl icable for dialysis patien ts Stock Plan Administrator ID - MMSpecimen slightly ictericCBC (HEMOGRAM ONLY)2022-08-03 [...] CONCENTRATION Decreased (CELLAVISION)(BEAKER) (test code = 3438) Stock Plan Administrator ID - Salena comments: Slide comments:CBC W/PLT COUNT & AUTO [id number] 14:52:12 Test Item Value Reference Range Interpretation [...] (BEAKER) (test code = 413) BASIC METABOLIC [id number] 13:40:34 Test Item Value Reference Range Interpretation [...] not appl icable for dialysis patien ts Stock Plan Administrator ID - ADMINSpecimen moderately ictericMYOCARD IMAGING, MULTI, PHARM, [id number] 15:12:00Unlisted Reason for Exam - Click Yes and Enter Reason Below->No[facility] : 1975 Sex: FFINAL REPORT PROCEDURE: MYOCARDIAL PERFUSION SPECT IMAGING (Rest/Stress)CPT CODE: 11493 INDICATION: Cardiac screening, high CAD risk CARDIOVASCULAR [...] . "The A1c is measured using a [facility]-certified method. HbA1c value equal to or greater than 6.5% as thediagnosis cutoff for diabetes. An HbA1c value of 5.7- 6.4% indicates increased risk for diabetes (prediabetes)."Stock Plan Administrator ID - ADM (CELLAVISION MANUAL DIFF)2022-08-01 08:26:35 [...] CONCENTRATION Decreased (CELLAVISION)(BEAKER) (test code = 3438) Stock Plan Administrator ID - Remy Deandreo-onUser comments: Slide comments:CBC W/PLT COUNT & AUTO [id number] 08:26:34 Test Item Value Reference Range Interpretation [...] (BEAKER) (test code = 413) HCG, QUANTITATIVE, [id number] 05:48:18 Test Item Value Reference Range Interpretation Comments GONADOTROPIN, CHORIONIC (HCG) QUANT < mIU/mL 0-10 (BEAKER) (test code = 649) Non- Females: <10 mIU/mL Females: Gestation Age Reference Range(mIU/mL) 0.2-1 Week 5-50 1-2 Weeks 50-500 2-3 Weeks 100-5,000 3-4 Weeks 500-10,000 4-5 Weeks 1,000-50,000 5-6 Weeks 10,000-100,000 6-8 Weeks 15,000- 200,000 2-3 Months 10,000-100,000 Stock Plan Administrator ID - DBBASIC METABOLIC PANEL 2022-08-01 05:41:39 [...] not appl icable for dialysis patien ts Stock Plan Administrator ID - DAMIÁN WSpecimen moderately uyyqpphJJQWMZTRS4657-92-17 05:41:38 Test Item Value Reference Range Interpretation Comments MAGNESIUM (BEAKER) (test code = 1.7 mg/dL 1.6-2.6 627) Stock Plan Administrator ID - DAMIÁN [id number] 05:41:38 Test Item Value Reference Range Interpretation Comments PHOSPHORUS (BEAKER) (test code = 3.0 mg/dL 2.3-4.7 604) Stock Plan Administrator ID - DAMIÁN WPT/BTLR5933-55-81 05:39:59 Test Item Value Reference Range Interpretation [...] 2.5-3.5 for patients with mechanical heart valves.LIPID [id number] 22:24:08 Test Item Value Reference Range Interpretation Comments TRIGLYCERIDES (BEAKER) (test code = 51 mg/dL 540) CHOLESTEROL (BEAKER) (test code = 102 mg/dL 631) HDL CHOLESTEROL (BEAKER) (test code 45 mg/dL = 976) LDL CHOLESTEROL CALCULATED (REAC FuelAKER) 47 mg/dL (test code = 633) Triglyceride Reference Range: Low Risk <150 Borderline 150-199 High Risk 200- 499 Very High Risk >=500Cholesterol Reference Range: Low Risk <200 Borderline 200-239 High Risk >240HDL Cholesterol Reference Range: Low Risk >=60 High Risk <40LDL Cholesterol Reference Range: Optimal <100 Near Optimal 100-129 Borderline 130-159 High 160-189 Very High >=190 Stock Plan Administrator ID - [id number] ID - [id number] ID - [id number] slightly ictericU/S, ENDOVAGINAL (EV)2022-07-31 14:38:00Reason for exam:->[facility] : 1975 Sex: [...] follow-up imaging with ultrasound. Signed: Shauna Duran [facility] Verified Date/Time: 07/31/2022 14:38:44 U/S, [id number] 14:38:00Reason for exam:->concern for [facility] : 1975 Sex: [...] follow-up imaging with ultrasound. Signed: Shauna Duran [facility] Verified Date/Time: 07/31/2022 14:38:44 U/S, DUPLEX, [id number] 14:38:00 [facility] : 1975 Sex: [...] follow-up imaging with ultrasound. Signed: Shauna Duran [facility] Verified Date/Time: 07/31/2022 14:38:44 CBC W/PLT COUNT & AUTO [id number] 03:57:39 Test Item Value Reference Range Interpretation [...] H PERCENT (BEAKER) (test code = 2801) [id number] 03:56:52 Test Item Value Reference Range Interpretation Comments MAGNESIUM (BEAKER) (test code = 1.5 mg/dL 1.5-3.0 627) Stock Plan Administrator ID - [id number] ID - [id number] ID - [id number] ID - [id number] BASIC METABOLIC [id number] 03:55:31 Test Item Value Reference Range Interpretation [...] not appl icable for dialysis patien ts Stock Plan Administrator ID - [id number] ID - REWY74Zevnqtog ID - JHFN56Dxllyxpz ID - LSXR70Molzfpia ID - RZQD32Hmpiqtwq ID - CHZQ86Gglsyscl ID - EFGX04Ygpctkxd ID - CDXK38Afzizdqc ID - HPWV79Oldshidf slightly bhbgwbxTWXZPESZIF6583-13-19 03:54:07 Test Item Value Reference Range Interpretation Comments PHOSPHORUS (BEAKER) (test code = 4.0 mg/dL 2.5-4.5 604) Stock Plan Administrator ID - [id number] 18:37:08 Test Item Value Reference Range Interpretation Comments MAGNESIUM (BEAKER) (test code = 1.6 mg/dL 1.5-3.0 627) Stock Plan Administrator ID - [id number] ID - [id number] ID - [id number] ID - GVGZV215KCV, CHEST, 1 VIEW, NON [id number] 16:51:00Reason for exam:->SOB, wheezingShould this be performed at the bedside?->Yes [facility] : 1975 Sex: FFINAL REPORT RAD, CHEST, 1 VIEW, NON DEPT TECHNIQUE: Frontal view(s) of the chest. INDICATION: SOB, wheezing COMPARISON: None FINDINGS/IMPRESSION: Lines/Tubes: None Lungs/pleura: No consolidation. Mild perihilar prominence with mild interstitial opacities, may represent mild edema. No pleural effusion. No pneumothorax. Heart and Mediastinum: Unremarkable. Soft Tissues and Bones: Unremarkable. Signed: Sarah Carreraeport Verified Date/Time: 07/30/2022 16:51:52 Reading Location: [facility] Radiology Reading Room BASI METABOLIC PANEL 2022-07-30 [...] not appl icable for dialysis patien ts Stock Plan Administrator ID - [id number] ID - [id number] ID - DEATK255Hndnpyci ID - FSHGV504Oolnkduc ID - AUTEH547Jwznowuf ID - HVHAM055Klmtarah ID - PTHGS120Klipcmve ID - ZDSQR087Pnsdjbch ID - ODCFQ091Qfmgpbde ID - NJPYV759Lhfuwhvh ID - ROGTP975Erzqbnfc ID - ESIIR600NNYTXHGDGCR TIME/INR 2022-07-30 16:00:01 Test Item Value Reference [...] mechanical heart valves.CBC W/PLT COUNT & AUTO [id number] 15:52:31 Test Item Value Reference Range Interpretation [...] PERCENT (BEAKER) (test code = 2801) TISSUE [id number] 12:09:00Surgical Pathology Report Case: [id number] Authorizing Provider: Trudy James MD Collected: 02/17/2019 1126 Ordering Location: [address] Received: 02/17/2019 1147 Service Pathologist: Angela Beach MD Specimen: Gallbladder A. GALLBLADDER, CHOLECYSTECTOMY: - CHRONIC CHOLECYSTITIS WITHCHOLELITHIASIS. Signing Pathologist Direct Phone Line: [phone] signed by Angela Beach MD on 02/19/2019 at 12:09 [id number] renal mass Gallbladder Received in formalin labeled [...] trabeculated. The wall measures 0.2 cm thick. Equity Holder sections are submitted in A1-A2, with the inked proximalmargin is A1. PA/ew Performed.[facility], Department of Pathology, [address] [place] [address], Mlqfzr[facility], Department of Pathology, [address] [place] [address], TdtvfmCalifornia Hospital Medical Center, Department of Pathology, [address] [place] [address], SOK W/PLT COUNT & AUTO [id number] 07:03:00 Test Item Value Reference Range Interpretation [...] (BEAKER) (test code = 2801) BASIC METABOLIC [id number] 06:57:00 Test Item Value Reference Range Interpretation [...] APPLICABLE FOR DIALYSIS PATIEN TS. HEPATIC FUNCTION [id number] 06:57:00 Test Item Value Reference Range Interpretation [...] (test code = 347) hemolyzed HEPATIC FUNCTION [id number] 06:57:00 Test Item Value Reference Range Interpretation [...] 72 U/L 6-55 H 347) BASIC METABOLIC [id number] 06:57:00 Test Item Value Reference Range Interpretation [...] PATIEN TS. CBC W/PLT COUNT & AUTO [id number] 06:28:00 Test Item Value Reference Range Interpretation [...] PERCENT (BEAKER) (test code = 2801) SCREEN, [id number] 07:28:00 Test Item Value Reference Range Interpretation Comments TEST URINE (BEAKER) (test Negative code = 583) [id number] 07:28:00 Test Item Value Reference Range Interpretation Comments MAGNESIUM (BEAKER) 2.0 mg/dL 1.6-2.6 Specimen moderately (test code = 627) hemolyzed [id number] 07:28:00 Test Item Value Reference Range Interpretation Comments PHOSPHORUS (BEAKER) 4.0 mg/dL 2.3-4.7 Specimen moderately (test code = 604) hemolyzed BASIC METABOLIC [id number] 07:28:00 Test Item Value Reference Range Interpretation [...] APPLICABLE FOR DIALYSIS PATIEN TS. HEPATIC FUNCTION [id number] 07:28:00 Test Item Value Reference Range Interpretation [...] Specimen moderately (test code = 347) hemolyzed [id number] 07:28:00 Test Item Value Reference Range Interpretation Comments LIPASE (BEAKER) (test code = 749) 31 U/L 8-78 CBC W/PLT COUNT & AUTO [id number] 07:10:00 Test Item Value Reference Range Interpretation [...] (BEAKER) (test code = 2801) U/S, ABDOMINAL, [id number] 23:50:00Abdomen limited area? Add comment if clarification [...] Date/Time: 02/15/2019 23:50:53 URINALYSIS W/ REFLEX URINE [id number] 22:43:00 Test Item Value Reference Range Interpretation [...] SOURCE(BEAKER) (test code = 2795) HEPATIC FUNCTION [id number] 17:03:00 Test Item Value Reference Range Interpretation [...] Specimen slightly (test code = 347) hemolyzed [id number] 16:00:00 Test Item Value Reference Range Interpretation Comments MAGNESIUM (BEAKER) 2.1 mg/dL 1.6-2.6 Specimen slightly (test code = 627) hemolyzed BASIC METABOLIC [id number] 16:00:00 Test Item Value Reference Range Interpretation [...] hemolyz ed (test code = 364) PROTHROMBIN TIME/[id number] 15:31:00 Test Item Value Reference Range Interpretation [...] is 2.5-3.5 for patients wiht mechanical heart valves.[id number] 15:31:00 Test Item Value Reference Range Interpretation Comments PARTIAL THROMBOPLASTIN TIME 31.4 seconds 22.5-36.0 (BEAKER) (test code = 760) CBC W/PLT COUNT & AUTO [id number] 15:14:00 Test Item Value Reference Range Interpretation [...] Consult Notes Date/Time Note Provider Source 2022-11-28 4744-41-43U49:23:09Associated Patrick Wallace OT [facility] 10:23:09 Order(s): CONSULT ADULT OCCUPATIONAL THERAPY OT GENERAL EVALUATIONConsult received via [employer], EMR reviewed and evaluation completed 11/28/22. Patient referred to occupational therapy for evaluation and treatment. Patient is 47 year old female with chest pain, NSTEMI. 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 27334-0Titcalb ncczDV2420-58-81R14:15:28Consult noteTXT1.2.840.550386.1.13.104.2.7.2 .708270|[id number] for patient xcme69223-2Yptlfhb gppoEA833996342Riflkq C Lawas [address][id number] OWEILSQZAJFSTHYSYYGKFT7145-91-39I79: 15:281.2.840.818741.1.72.3.15|1.2.84 0.462878.1.13.104.2.7.2.727879_18983 39021 2022-11-28 8195-35-32N12:45:00Associated Savanna Juarez [facility] 09:45:00 Order(s): CONSULT ADULT PHYSICAL THERAPY Patient [...] setting of methamphetamine use), CAD c/b unspecified [place] (02/2022 per CareEverywhere), HFpEF, hypertension, hyperlipidemia, COPD, GERD, and seizure disorder (not on medications) presenting as a transfer from [facility] for NSTEMI. Troponin peaked at 1.34 and [...] setting of methamphetamine use), CAD c/b unspecified [place] (02/2022 per CareEverywhere), HFpEF, hypertension, hyperlipidemia, COPD, GERD, and seizure disorder (not on medications) presenting as a transfer from [facility] for NSTEMI. Troponin peaked at 1.34 and [...] a SS house, and sisterDME: Wheel Chair u7Kwkod level of Mobility: requires assistance with transfers, requires assistance with bed mobility, uses w/c primarily, family/caregiver. Per patient, her sister puts her on the wheelchair, pushes her on the wheelchair since 2022Suspected ischemic or hemorraghic stroke:Yes, Pre-Stroke Modified [place] Score: 4 - Moderately severe disability; unable to walk without assistance and unable to attend to own bodily needs without assistance Subjective: "My sister pushes me around"Patient/Family Goals: To go homePatient/Family verbalizes understanding of condition: Yes PAIN: denies pain before and after sessionCOMMUNICATIONPrimary Language: Mozambican Able to Verbalize needs: Yes Vision:good; no [...] Time in Minutes: 33 minSavanna Juarez PT, DPTUnCrescent Medical Center LancasterRehabilitation Services A physical therapy evaluation of high [...] clinical presentation with unstable and unpredictable characteristics 12922-2Ottnlqq xbmdYK4876-74-66I37:53:18Consult noteTXT1.2.840.221622.1.13.104.2.7.2 .532180|[id number] for patient bhut87291-4Jyjvele iarsNT206598617Ivcoki Pallera [address] Pn[id number] CTBQKXMLGZDRAGLTTMOOET5858-15-33I77: 53:181.2.840.289030.1.72.3.15|1.2.84 0.035083.1.13.104.2.7.2.727879_18983 38435 2022-11-25 7181-01-75W24:49:18Associated PN-NEUROLOGY [facility] 18:49:18 Order(s): CONSULT NEUROLOGY STROKE SERVICE [...] with Dr. Rivera, Neurology Faculty Stroke pager: [phone] Shahnaz Borges, MDPGY-4, NeurologyPager: [phone] signed by Romaine Rivera MD at 11/26/2022 [...] reported) and/or communicating results to the patient/family/caregiver. 15195-9Yfgbhca lzzsPN2637395Ncpeuube, Hashem1.2.840.655896.1.13.104.2.7.2. 020484BsqtgkmpYrgwpmFE7906-88-09C35: 21:11Consult noteTXT1.2.840.758520.1.13.104.2.7.2 .486031|[id number] for patient hyun18134-0Olmzasg enqoIQST-POFGVUDIXPG-BPLAZLMAJSPRYOC [address] Qv[id number] OHIWQRCIWAYBVIPFJFZCNV1140-34-28V32: 21:111.2.840.096069.1.72.3.15|1.2.84 0.436504.1.13.104.2.7.2.727879_18956 70793 2022-11-25 6641-30-68F20:00:00Associated Analy Morris [facility] 18:00:00 Order(s): CONSULT PS PASTORAL Filippo CARE Electronics Lead visited with patient in response to consult for pastoral care and support. Patient was awake and acknowledged mainframe systems engineer's presence. Pt was alone in room. The Pt said she was of Zoroastrian nicole. The PT. Expressed to the Electronics Lead of some fear,about her upcomming surgery that going to be done on her heart.Pt asked the Electronics Lead to pray for her and for God to give her peace. The Electronics Lead provided spiritual support through prayer of healing, peace and comfort. Electronics Lead provided pastoral presence, and validated feelings. Pastoral care will continue to follow up as needed. Rev.Analy Ferro [facility] Department of Pastoral CarePh: [phone]: [phone] 52537-6Kekcxjr imktIK6773-19-55E37:31:33Consult noteTXT1.2.840.225204.1.13.104.2.7.2 .420438|[id number] for patient uygo58072-9Hzboqnb lyivOJ637693128Wpyvzwh M [address] Np[id number] PLHPACIGHTNYDJQMCWXBIM2144-73-80I52: 31:331.2.840.348022.1.72.3.15|1.2.84 0.379485.1.13.104.2.7.2.727879_18956 83761 2022-11-25 0028-32-30H39:53:13Associated PED-PEDIATRICS [facility] 10:53:13 Order(s): CONSULT ALLERGY ALLERGY & IMMUNOLOGY CONSULT NOTEDATE OF SERVICE: 11/25/22REASON FOR CONSULT: Aspirin allergyHPI: Patient is a 47 year old female with a past medical history significant for recent hemorrhagic stroke (10/29/22; 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 - Plan also explained to via anguillan translatorPatient seen with Dr. Magaña. Thank you [...] see the fellow's note for additional details. [id number] [id number], [id number] [id number]M20:58:19C onsult noteTXT1.2.840.701507.1.13.104.2.7.2 .053861|[id number] for patient pfco41178-7Dxwvxyl bzrdVUQQA-GGRKMIDUJAQBD-YEFLIXGHZDJC [id number] FWCMBWZFAIRVXCABBWJADZ8501-34-97W11: 58:191.2.840.939456.1.72.3.15|1.2.84 0.451081.1.13.104.2.7.2.727879_18954 [id number] 2022-11-24 4796-63-63Q88:08:12Associated NS-NEUROLOGICAL [facility] 16:08:12 Order(s): CONSULT SURGERY NEUROSURGERY NEUROSURGERY CONSULTATION HISTORY AND PHYSICALAttending Neurosurgeon: Dr. 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 Pt [...] 100% 100% Weight: Height: Awake, alert, oriented y9ERNGN bilaterally at 3mmEOMI bilaterallySlight left lower facial [...] setting of methamphetamine use), CAD c/b unspecified OK (02/2022 per [facility]), HFpEF, hypertension, hyperlipidemia, COPD, GERD, and seizure disorder (not on medications) presenting as a transfer from [facility] for NSTEMI currently on heparin drip. NSGY consulted for recs regarding heparin in light of recent hemorrhagic stroke. Pt at neurologic baseline s/p stroke.Recommendations:No neurosurgical interventionPlease consult neurology for management and recommendations of anticoagulation w/ hx of hemorrhagic strokeWill sign off at this timeChristian MD CindyNeurosurgery ServiceFor inquiries please page [phone] signed by Burton Howell MD at 11/25/2022 12:23 PM CDTAssociated attestation - Burton Howell MD - 11/25/2022 12:23 PM CDT I personally evaluated and am primary in decision making on, Geetha Minor, and I agree with the documentation by Sinan White MD,neurosurgery resident.[id number] [id number], Rudy P1.2.840.320343.1.13.104.2.7.2.31675 7OhzrjnOcvjYWY8616-46-25F97:23:14Con doctors hospital noteTXT1.2.840.764734.1.13.104.2.7.2 .010380|[id number] for patient tipd91300-4Fvvqkuk noteLNNS-NEUROLOGICAL SURGERYNS-NEUROLOGICAL SURGERY[address][id number] NPHUHKAYYHEMWQLPHESXOL8442-25-60Q71: 23:141.2.840.257186.1.72.3.15|1.2.84 0.809608.1.13.104.2.7.2.727879_18954 [id number] History and Physical Notes Date/Time Note Provider Source 2022-11-24 11:33:08 5298-65-24A82:33:08Formatting of this note [facility] is different from the original.Images from the original note were not included.CCU History and Physical Date of Service: 11/24/2022 15:48 ICU day: Intubation Day: CHIEF COMPLAINT: Chest painHistory of Present IllnessGeetha Minor is a 47 year old female with a past medical history significant for recent hemorrhagic stroke (10/29/22; 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 On my interview, patient reports [...] for amphetamines during her recent hospitalization.Workup at [facility] showed ST depression and TWI in inferior [...] 454 ms QTC Calculation(Bazett) 460 ms P [place] 19 degrees R [place] 64 degrees T [place] 254 degrees Normal sinus rhythm Possible Left [...] sedated at [facility]SH prior to transfer to [facility], extubated on 10/30, required nicardipine [...] care of her , she will need / assistance. UDS 10/29/22Assessment/Plan:Geetha Minor is a 47 [...] develop- Sedation/Analgesia: NoneRespCOPDHx tobacco abuse- DuoNebs prn- M2COIemngzvksefcpqKMDZKQRwyzq painReported CAD HFpEFBradycardiaHTNHLDPatient presenting as a transfer from [facility] with NSTEMI. Troponin elevated here on arrival [...] evaluation of volume status- CXR- Will need [facility] this admission- Continue Plavix (allergic to ASA)- [...] prophylaxis: heparinLines/Catheters:Peripheral IV 11/24/22 Right Antecubital Inserted CAGE MAKER MACHINE (Active) Number of days: 0 Dispo: CCUPrognosis: GuardedCode Status: DANIEL Guzman-3, Department of Internal Medicine ssociated attestation - [...] ordering referrals and/or communicating with other health healthcare science specialist (when not separately reported), documenting clinical information in the electronic or other health record, and care coordination (not separately reported).- hemodynamically stable- Neurosurgery consult for systemic AC / DAPT in the future, given h/o ICH- allergy consult for ASA desensitizationJOSE Cierra GONZALEZ MD, [facility], [facility], [facility], INCAAssistant ProfessorCardiology, Advanced Heart Failure, LVAD & Transplant ServiceDate of service: [id number] and physical [id number]-Eetnakmi, Jose C1.2.840.482180.1.13.104.2.7.2.971550Mbmfs xywsg-ZrgujbukAybqCLL8620-56-10T15:30:41Hi story and physical noteTXT1.2.840.546826.1.13.104.2.7.2.46457 9|[id number] for patient rrbs30802-0Mkuzdjs and physical noteLNUTMBUNION COUNTY GENERAL HOSPITAL - [address] Cb[id number] QQYPJLLYPVXQSMVX8502-82-34O85:30:411.2.840 .271250.1.72.3.15|1.2.840.962057.1.13.104. 2.7.2.727879_[id number]
--- NOTE | 2022-12-20 16:08 | RAD REPORT ---
EXAM DESCRIPTION: RAD - Chest Single View - 12/20/2022 3:58 pm CLINICAL HISTORY: CHEST PAIN Chest pain. COMPARISON: Chest Single View dated 12/20/2022; Chest Single View dated 12/15/2022; Chest Single View dated 12/11/2022; Chest Single View dated 12/07/2022 FINDINGS: Portable technique limits examination quality. The lungs are grossly clear. The heart is normal in size. No displaced fractures. IMPRESSION: No acute intrathoracic process suspected.
--- NOTE | 2022-12-20 16:26 | EDPHYS ---
Physician Documentation [facility] Name: Geetha Khan Age: 47 yrs Sex: Female : 1975 Arrival Date: 12/20/2022 Time: 15:19 Bed 15 Private MD: ED Physician Kishor Hoyos HPI: 12/20 15:32 This 47 yrs old Female presents to ER via Unassigned with complaints of chest pain. ms3 15:32 47-year-old female presents via [facility] for anterior chest pain after falling off ms3 her bedside toilet last night. Patient was seen in the emergency department last night where a 1 view chest x-ray was performed. EMS notes patient's blood pressure to be 110/67, heart rate of 52, patient 100% on room air. Patient states her pain is a 10/10 described as being sharp. Patient denies any alleviating or inciting factors. Patient states she returned to the emergency department due to the sharp pain.. Historical: - Allergies: 15:39 Aspirin; db 15:39 CRANBERRY; db 15:39 FISH PRODUCT DERIVATIVES; db 15:39 GRAPEFRUIT; db 15:39 mushrooms; db - Home Meds: 15:39 amlodipine oral [Active]; db 15:41 atorvastatin oral [Active]; Dexamethasone Oral [Active]; Lisinopril Oral [Active]; db Metoprolol Tartrate Oral [Active]; - PMHx: 15:39 Asthma; Cerebrovascular accident; COPD; CVA; Left sided deficits.; Hypertension; db Myocardial infarction; Seizures; Thyroid problem; - Immunization history:: Adult Immunizations unknown. - Social history:: Smoking status: Patient reports the use of cigarette tobacco products, smokes one-half pack cigarettes per day. ROS: 15:32 Constitutional: Negative for fever, and chills. ENT: Negative for injury, pain, and ms3 discharge, Neck: Negative for injury, pain, and swelling, 15:32 Back: Negative for injury and pain, MS/Extremity: Negative for injury and deformity, Skin: Negative for injury, rash, and discoloration, 15:32 Cardiovascular: Positive for chest pain, 15:32 All other systems are negative, Exam: 15:32 Constitutional: This is a well developed, well nourished patient who is awake, alert, ms3 and in no acute distress. Head/Face: Normocephalic, atraumatic. Neck: Trachea midline, no cervical lymphadenopathy. Supple, full range of motion without nuchal rigidity, or vertebral point tenderness. No Meningismus. Cardiovascular: Regular rate and rhythm with a normal S1 and S2. No gallops, murmurs, or rubs. Normal PMI, no JVD. No pulse deficits. Respiratory: Lungs have equal breath sounds bilaterally, clear to auscultation and percussion. No rales, rhonchi or wheezes noted. No increased work of breathing, no retractions or nasal flaring. Abdomen/GI: Soft, non-tender, with normal bowel sounds. No distension or tympany. No guarding or rebound. No evidence of tenderness throughout. Back: No spinal tenderness. No costovertebral tenderness. Full range of motion. MS/ Extremity: Pulses equal, no cyanosis. Neurovascular intact. Full, normal range of motion. Psych: Awake, alert, with orientation to person, place and time. Behavior, mood, and affect are within normal limits. 15:32 Chest/axilla: Inspection: normal, Palpation: tenderness, that is moderate, of the anterior aspect of left upper chest, Vital Signs: 15:28 BP 106 / 64; Pulse 53; Resp 18; Temp 98.5(O); Pulse Ox 100% ; Weight 58.97 kg; Height 5 db ft. 2 in. ; Pain 10/10; 15:30 BP 119 / 78; Pulse 65; Resp 16; Pulse Ox 100% ; db 16:30 BP 123 / 76; Pulse 95; Resp 16; Pulse Ox 99% on R/A; db 17:00 BP 105 / 81; Pulse 58; Resp 16; Pulse Ox 95% on R/A; db 15:28 Body Mass Index 23.78 (58.97 kg, 157.48 cm) db 15:28 Pain Scale: Adult db MDM: 15:24 Patient medically screened. ms3 15:32 Differential diagnosis: Blunt Chest Trauma Chest Wall Contusion Chest Wall Injury ms3 Pneumothorax Rib Fracture. 16:33 Data reviewed: vital signs, nurses notes, radiologic studies, plain films, and as a ms3 result, I will discharge patient. Independent interpretation of the following test(s) in the Emergency Department X-Ray: My interpretation is Chest x-ray image reviewed by me does not reveal pneumothorax or rib fracture.. Historians other than the Patient: EMS: [facility]. Care significantly affected by the following Social Determinants of Health: Poor access to healthcare and/or lack of insurance. Counseling: I had a detailed discussion with the patient and/or guardian regarding the historical points, exam findings, and any diagnostic results supporting the discharge/admit diagnosis, radiology results, the need for outpatient follow up, to return to the emergency department if symptoms worsen or persist or if there are any questions or concerns that arise at home. Special discussion: I discussed with the patient/guardian in detail that at this point there is no indication for admission to the hospital. It is understood, however, that if the symptoms persist or worsen the patient needs to return immediately for re-evaluation. ED course: Discussed chest x-ray report with patient. Patient to follow-up with primary care physician in 2 to 3 days. Patient understands and agrees with plan. All questions were answered. Return precautions discussed include worsening symptoms, or any other concerns. On reevaluation patient is alert and oriented x4, no apparent distress, nontoxic-appearing, speaking full sentences. 12/20 15:59 Order name: Chest Single View; Complete Time: 16:10 EDMS 12/20 17:41 Order name: INCENTIVE SPIROMETRY juan diego Administered Medications: 17:50 Drug: Lincoln PO 10 mg-325 mg 1 tabs PO once Route: PO; db 17:59 Follow up: Response: No adverse reaction db Disposition Summary: 12/20/22 16:26 Discharge Ordered Notes: Location: Home ms3 Condition: Stable ms3 Diagnosis - Fall from chair, sequela ms3 - Chest pain, unspecified ms3 Followup: ms3 - With: Obed Eddy, DO - When: 2 - 3 days - Reason: Recheck today's complaints Discharge Instructions: - How to Use an Incentive Spirometer juan diego - Incentive Spirometer Record juan diego - Discharge Summary Sheet ms3 - Musculoskeletal Pain ms3 Forms: - Medication Reconciliation Form ms3 - Thank You Letter ms3 - Antibiotic Education ms3 - Prescription Opioid Use ms3 - Patient Portal Instructions ms3 - Leadership Thank You Letter ms3 Prescriptions: - acetaminophen-codeine 300-30 mg Oral tablet - take 2 tablet ORAL route every 6 hours as needed for pain; 20 tablet; Refills: juan diego 0, Product Selection Permitted Signatures: Dispatcher [employer] EDMS Michael Grimm MD MD cha Sims, Marcus, DO DO ms3 Yeimy Martel, RN RN db Corrections: (The following items were deleted from the chart) 15:59 15:32 Chest Pa And Lat (2 Views)+RAD.RAD.BRZ ordered. EDMS EDMS
--- NOTE | 2022-12-20 16:26 | ER ---
Nurse's Notes [facility] Name: Geetha Khan Age: 47 yrs Sex: Female : 1975 Arrival Date: 12/20/2022 Time: 15:19 Bed 15 Private MD: Diagnosis: Fall from chair, sequela;Chest pain, unspecified Presentation: 12/20 15:28 Chief complaint: EMS states: PATIENT FROM HOME COMPLAINING OF SHOULDER PAIN. SEEN db YESTERDAY FOR PAIN AFTER FALLING OUT OF BED LAST NIGHT. STATES PAIN HAS NOT GONE AWAY AFTER IBUPROFEN. LEFT PARALYSIS FROM A STROKE. Coronavirus screen: Vaccine status: Patient reports being unvaccinated. Client denies travel out of the [place] in the last 14 days. At this time, the client does not indicate any symptoms associated with coronavirus-19. Ebola Screen: Patient negative for fever greater than or equal to 101.5 degrees Fahrenheit, and additional compatible Ebola Virus Disease symptoms Patient denies exposure to infectious person. Patient denies travel to an Ebola-affected area in the 21 days before illness onset. No symptoms or risks identified at this time. Initial Sepsis Screen: Does the patient meet any 2 criteria? No. Patient's initial sepsis screen is negative. Does the patient have a suspected source of infection? No. Patient's initial sepsis screen is negative. Risk Assessment: Do you want to hurt yourself or someone else? Patient reports no desire to harm self or others. Onset of symptoms was December 20, 2022. 15:28 Method Of Arrival: EMS db 15:28 Acuity: CORRINA 4 db Triage Assessment: 15:41 General: Appears in no apparent distress. comfortable, Behavior is calm, cooperative. db Pain: Complains of pain in RIGHT SHOULDER. Historical: - Allergies: 15:39 Aspirin; db 15:39 CRANBERRY; db 15:39 FISH PRODUCT DERIVATIVES; db 15:39 GRAPEFRUIT; db 15:39 mushrooms; db - Home Meds: 15:39 amlodipine oral [Active]; db 15:41 atorvastatin oral [Active]; Dexamethasone Oral [Active]; Lisinopril Oral [Active]; db Metoprolol Tartrate Oral [Active]; - PMHx: 15:39 Asthma; Cerebrovascular accident; COPD; CVA; Left sided deficits.; Hypertension; db Myocardial infarction; Seizures; Thyroid problem; - Immunization history:: Adult Immunizations unknown. - Social history:: Smoking status: Patient reports the use of cigarette tobacco products, smokes one-half pack cigarettes per day. Screenin:45 [facility] ED Fall Risk Assessment (Adult) History of falling in the last 3 months, db including since admission Yes- single mechanical fall (1 pt) Confusion or Disorientation No (0 pts) Intoxicated or Sedated No (0 pts) Impaired Gait Yes (1 pt) Mobility Assist Device Used Yes (1 pt) Altered Elimination No (0 pt) Score/Fall Risk Level 3 or more points = High Risk Oriented to surroundings, Maintained a safe environment. Abuse screen: Denies threats or abuse. Denies injuries from another. Nutritional screening: No deficits noted. Tuberculosis screening: No symptoms or risk factors identified. Assessment: 15:45 Reassessment: Patient appears in no apparent distress at this time. Patient and/or db family updated on plan of care and expected duration. Pain level reassessed. Patient is alert, oriented x 3, equal unlabored respirations, skin warm/dry/pink. General: Appears in no apparent distress. comfortable, Behavior is calm, cooperative. Neuro: Level of Consciousness is awake, alert, obeys commands, Oriented to person, place, time, situation. 16:30 Reassessment: Patient appears in no apparent distress at this time. Patient and/or db family updated on plan of care and expected duration. Pain level reassessed. Patient is alert, oriented x 3, equal unlabored respirations, skin warm/dry/pink. 16:39 Reassessment: CALLED PT SPOUSE TO GIVE PT RIDE HOME. db 16:42 Reassessment: SPOKE TO PATIENT . HE STATES WILL PICK PATIENT UP IN 1 HOUR. db 17:00 Reassessment: Patient appears in no apparent distress at this time. Patient and/or db family updated on plan of care and expected duration. Pain level reassessed. Patient is alert, oriented x 3, equal unlabored respirations, skin warm/dry/pink. 17:15 Reassessment: PT DISCHARGED. REQUESTING TO SPEAK TO PHYSICIAN. db Vital Signs: 15:28 BP 106 / 64; Pulse 53; Resp 18; Temp 98.5(O); Pulse Ox 100% ; Weight 58.97 kg; Height 5 db ft. 2 in. ; Pain 10/10; 15:30 BP 119 / 78; Pulse 65; Resp 16; Pulse Ox 100% ; db 16:30 BP 123 / 76; Pulse 95; Resp 16; Pulse Ox 99% on R/A; db 17:00 BP 105 / 81; Pulse 58; Resp 16; Pulse Ox 95% on R/A; db 15:28 Body Mass Index 23.78 (58.97 kg, 157.48 cm) db 15:28 Pain Scale: Adult db ED Course: 15:23 Patient arrived in ED. em1 15:24 Kishor Hoyos DO is Attending Physician. ms3 15:33 Yeimy Martel, RN is Primary Nurse. db 15:39 Triage completed. db 15:41 Arm band placed on Patient placed in an exam room. db 15:45 Patient has correct armband on for positive identification. Bed in low position. Call db light in reach. Side rails up X 1. Pulse ox on. NIBP on. Warm blanket given. 15:59 Chest Single View In Process Unspecified. EDMS 16:25 Obed Eddy DO is Referral Physician. ms3 16:40 No provider procedures requiring assistance completed. Patient did not have IV access db during this emergency room visit. 17:38 Provided Education on: DISCHARGE. db Administered Medications: 17:50 Drug: Charlotte PO 10 mg-325 mg 1 tabs PO once Route: PO; db 17:59 Follow up: Response: No adverse reaction db Medication: 15:45 VIS not applicable for this client. db Outcome: 16:26 Discharge ordered by MD. ms3 16:40 Discharged to home PENDING RIDE HOME db 16:40 Condition: stable 17:37 Discharge instructions given to patient, family, Instructed on discharge instructions, db follow up and referral plans. 17:37 Discharged to home via wheelchair, with significant other, db 18:01 Patient left the ED. db Signatures: Dispatcher [employer] EDMS Reyes Khan em1 Kishor Hoyos DO DO ms3 Yeimy Martel, RN RN db Corrections: (The following items were deleted from the chart) 16:43 15:30 BP 119 / 78; Pulse 55bpm; Resp 16bpm; Pulse Ox 100%; db db 17:37 17:37 Discharge instructions given to patient, family, Instructed on discharge db instructions, follow up and referral plans. Prescriptions given X 2, db
[2022-12-20] MEDS ORDERED: HYDROCODONE/APAP 10/325 TAB ONE (18:02)
[2022-12-20 20:43] VITALS: TEMP 98.5
[2022-12-20 20:47] VITALS: BP 105/81; O2SAT 95
== END 2022-12-20 18:01 | disposition home or self-care (01) ==
LOC: ER 15:19
DX: R07.9 Chest pain, unspecified (principal); W07.XXXS Fall from chair, sequela; F17.210 Nicotine dependence, cigarettes, uncomplicated; Z88.6 Allergy status to analgesic agent; Z91.013 Allergy to seafood; Z91.018 Allergy to other foods
CPT/HCPCS: 71045; 99284

== ENCOUNTER 2023-01-03 09:02 | Observation (INO) | payer OTHER, SELFPAY ==
--- OUTSIDE RECORDS SUMMARY | 2023-01-03 09:10 | XMS REPORT | Continuity of Care Document ---
:1975 Author Organization [facility] t Address [address] [place] [address] Care Team Providers Name Role Phone PCP, PATIENT DOES NOT HAVE A Primary Care Physician UnavailZAHRA Stoner Attending Clinician Unavailable SUSIE TAI Attending Clinician Unavailable KATHY MAHMOOD Attending Clinician Unavailable MURRAY ELISE Attending Clinician Unavailable Desi Sotelo LVN Attending Clinician RYNE YODER Attending Clinician Unavailable Zohaib Parsons MD Attending Clinician [phone] Ryne Yoder MD Attending Clinician Meghana Felix MD Attending Clinician GOYO HANKINS Attending Clinician Unavailable DANYEL WHITESIDE Attending Clinician Unavailable Vijay Jenkins Attending Clinician KRISTIN SHAH Attending Clinician Unavailable Fredis ECHEVERRIA, Sun In H Attending Clinician Fredrick ECHEVERRIA, Aida Barreto Attending Clinician [phone] Clifton De Luna MD Attending Clinician [phone] Kristin Shah MD Attending Clinician [phone] CLIFTON DE LUNA Attending Clinician Unavailable Servando ECHEVERRIA, Les Attending Clinician Nena Waller MD Attending Clinician Leonid Harris MD Attending Clinician DAYRON FOSTER Attending Clinician Unavailable Dayron Foster MD Attending Clinician [phone] ZAIN SALAS Attending Clinician Unavailable AMANDA JOHNSTON Admitting Clinician Unavailable RYNE YODER Admitting Clinician Unavailable Ryne Yoder MD Admitting Clinician AIDA ALCALA Admitting Clinician Unavailable LEONID HARIRS Admitting Clinician Unavailable DAYRON FOSTER Admitting Clinician [...] abscess 5-21 Iqra kes 00:00: Medical 00 Center Abdominal Abdominal Disease Recurre [facility] infection infection nce 5-16 [facility] s 00:00: Medical 00 Center Pelvic Pelvic Disease Active [facility] abscess in abscess in 5-15 Irqa kes female female 00:00: Medical 00 Center Acute Acute Disease Active 2018-[address] [facility] cholecysti cholecysti 2-03 Iqra kes tis tis 00:00: Medical 00 Center Calculus Calculus Disease Active 2018-03 [facility] gallbladde gallbladde 00:00: Me dical r without r without 00 Cent er cholecysti cholecysti tis tis without without obstructio obstructio n n Transamini Transamini Disease Active 2018-[address] tis tis 2-02 [facility] 00:[facility] Medical 00 Center Hypertensi Hypertensi Disease Recurre 2018-[address] [facility] on on nce 2-02 [facility] 00:[facility]: Medical 00 Center Seizure Seizure Disease Recurre 2018- [facility] disorder disorder nce 04-19 [facility] 00:00: Medical 00 [place] Anemia Anemia Disease Active 2018- [facility] 04-19 [facility] 00[facility] Medical 00 Center Thrombocyt Thrombocyt Disease Active 2018- [facility] osis osis 04-19 [facility] 00:00: Medical 00 Center Allergies, Adverse Reactions, Alerts Allergy Allergy Status Severity Reaction(s) Onset Inactive Treating Comm ents Source Name Type Date Date Clinician CRANBERR DRUG Active Unknown-Cmnt 2022-0 Un yoana Y INGREDI 11-26 ity of 00:00: [place] 00 Medical Branch GRAPEFRU DRUG Active Unknown-Cmnt 2022-0 Un yoana IT INGREDI 11-26 ity of 00:00: [place] 00 Medical Branch Cranberr Propensi Active Unknown - 2022-0 Uni vers y ty to See comments 11-26 ity of adverse 00:00: [place] reaction 00 Medical s Branch Grapefru Propensi Active Unknown - 2022-0 Uni vers it ty to See comments 11-26 ity of adverse 00:00: [place] reaction 00 Medical s Branch ASPIRIN DRUG Active High Anaphylaxis 3-0 Univ ers INGREDI 11-24 ity of 00:00: [place] 00 Medical Branch FISH Drug Active Unknown-Cmnt 2022-0 Univ ers CONTAINI Class 11-24 ity of NG 00:00: [place] PRODUCTS 00 Medical Branch MUSHROOM DRUG Active Unknown-Cmnt 2022-0 Un yoana INGREDI 11-24 ity of 00:00: [place] 00 Medical Branch Aspirin Propensi Active Anaphylaxis 202-0 Throat Un yoana ty to 11-24 swells; ity of adverse 00:00: breaks [place] reaction 00 out Medical s Branch Fish Propensi Active Unknown - 2022-0 Unive rs Containi ty to See comments 11-24 it y of ng adverse 00:00: [place] Products reaction 00 Medica l s Branch Mushroom Propensi Active Unknown - 3-0 Uni vers ty to See comments 11-24 ity of adverse 00:00: [place] reaction 00 Medical s Branch ASPIRIN Allergy Active High Anaphylaxis 2023-0 SLE H 5-15 00:00: 00 MUSHROOM Allergy Active High Anaphylaxis 2023-0 SL EH 5-15 00:00: 00 SHELLFIS Allergy Active High Anaphylaxis 2023- SL EH H 5-15 CONTAINI 00:00: [place] 00 PRODUCTS Aspirin Drug Active Anaphylaxis 2022- [facility] Allergy [facility]-15 [facility] 00:00: Medical 00 Center Mushroom Drug Active Anaphylaxis [facility] Allergy 5-15 [facility] 00:00: Medical 00 Center Shellfis Drug Active Anaphylaxis [facility] h Allergy 5-15 [facility] Containi 00:00: Medical ng 00 Center Products FISH Allergy Active High Swelling 2018- SLSL CONTAINI 2-01 NG 00:00: PRODUCTS 00 CRANBERR Allergy Active High Anaphylaxis 2018- SL EH Y 04-18 00:00: 00 Cranberr Drug Active Anaphylaxis, 2018- [facility] y Allergy Hives, 04-18 [facility] Itching 00:00: Medical 00 Center Fish Drug Active Swelling 2018-[address] [facility] Containi Allergy -01 [facility] ng 00:00: Medical Products 00 Center Social History Social Habit Start Date Stop Date Quantity Comments Source Gender identity [facility] Sexual orientation Univer sity of [facility] History SDOH [facility] Alcohol Std Drinks Medica l Center History SDOH [facility] Alcohol Comment Medical C enter History SDOH [facility] Transport Non-Med Medical Center History of Social 2022-11-26 2022-11-26 Univers ity of function 00:00:00 00:00:00 [facility] Cigarettes smoked 2022-11-24 2022-11-24 Univers ity of current (pack per 00:00:00 00:00:00 ) - Reported Branch Cigarette 2022-11-24 2022-11-24 University of pack-years 00:00:00 00:00:00 [facility] Tobacco use and 2022-11-24 2022-11-24 Smokeless Universit y of exposure 00:00:00 00:00:00 tobacco non-user [facility] Alcohol intake 2022-11-24 2022-11-24 Ex-drinker [facility] 00:00:00 00:00:00 (finding) [facility] History of tobacco 2022-11-03 Passive smoker Un iversity of use 00:00:00 [facility] History SDOH 2022-08-06 2022-08-[address] [facility] Transport Med 00:00:00 00:00:[address] [facility] 2022-08-06 2022-08-[address] [facility] Housing Unable to 00:00:00 00:00:00 Medical Center Pay History [facility] 2022-08-06 2022-08-[address] [facility] Housing Places 00:00:00 00:00:00 Medical Ce nter Lived History [facility] 2022-08-06 2022-08-[address] [facility] Housing Homeless 00:00:00 00:00:00 Medical Center Last Year History [facility] 2019-02-15 2019-02-[address] [facility] Alcohol Binge 00:00:00 00:00:[address] History [facility] 2019-02-15 2019-02-[address] [facility] Alcohol Frequency 00:00:00 00:00:00 Medical Center Sex [birth year] Universit y of 00:00:00 00:00:00 [facility] Smoking Status Start Date Stop Date Source Ex-smoker 2022-11-24 00:00:00 2022-11-24 [facility] [place] 00:00:00 [facility] Branch Occasional tobacco 2022-07-30 00:00:00 [facility] sm[facility] Center Medications Ordered Filled Start Stop Current Ordering Indication Dosage Frequency Signature Comments Components Source Medication Medication Date Date Medication? Clinician (SIG) Name Name [facility] Yes 20meq 20 mEq, Univers (KLOR-CON 9-14 Oral, ity of M20) tablet 14:00: DAILY, [facility] 20 mEq 00 First dose Medical on [facility] Branch 11/29/22 at 0900, [facility] QUEtiapine 2022-0 Yes 25mg Take 1 Unive rs 25 mg 9-13 tablet by ity of tablet 21:49: mouth in [place] [address] the Medical morning Branch and 1 tablet in the evening. furosemide 2022-0 Yes 20mg Take 1 Unive rs (LASIX) 20 9-13 tablet by ity of mg tablet 21:49: mouth in [facility] 46 the Medical morning. Branch QUEtiapine 2022-0 Yes 25mg Take 1 Unive rs 25 mg 9-13 tablet by ity of tablet 21:49: mouth in [place] [address] the Medical morning Branch and 1 tablet in the evening. furosemide Yes 20mg Take 1 Unive rs (LASIX) 20 11-28 tablet by ity of mg tablet 21:49: mouth in [facility] 46 the Medical morning. Branch albuterol 2022- No 2{puff} 2 Puff, U nivers (VENTOLIN) 11-28 Inhalation it y of inhaler 2 20:59: 21:00 , [place]CE, 1 [place] Puff 00 :00 dose, On Sat Branch 11/28/22 at 1600, Routine magnesium 2022- No 4g 4 g, IV Univ ers sulfate in 11-28 Piggyback, it y of water 4 15:45: 18:49 at 25 [place] gram/50 mL 00 :00 mL/hr Medical (8 %) IV Administer Branc h Piggyback 4 over 120 g Minutes, ONCE, 1 dose, On Sat11/28/22 at 1045, Routine atorvastati 2022- No 40mg Take 1 Uni vers n 40 mg 11-28 tablet by ity of tablet 10:17: 00:00 mouth at [place] 14 :00 bedtime. Medical Branch amLODIPine 2022-2022- No 10mg Take 1 Univ ers 10 mg 11-28 tablet by ity of tablet 10:12: 00:00 mouth in [place] 07 :00 the Medical morning. Branch NIFEdipine 2022- No 60mg Take 1 Univ ers ER 60 mg 11-28 tablet by ity o f tablet 10:12: 00:00 mouth in [place] 04 :00 the Medical morning. Branch metoprolol 2022- No 50mg Take 1 Univ ers tartrate 11-28 tablet by ity o f (LOPRESSOR) 10:12: 00:00 mouth in [place] 50 mg 04 :00 the Medical tablet morning Branch and 1 tablet in the evening. amLODIPine 2022-0 Yes [id number] 2.5mg Take 1 Univers 2.5 mg 11-28 tablet by ity of tablet 00:00: mouth in [place] 00 the Medical morning. Branch metoprolol 2022-0 Yes [id number] 12.5mg Take 0.5 Univers tartrate 25 11-28 tablets by it y of mg tablet 00:00: [place] 00 the Medical morning Branch and 0.5 tablets in the evening. atorvastati Yes [id number] 40mg Take 1 Univers n 40 mg 9-13 tablet by ity of tablet 00:00: mouth at [place] 00 bedtime. Medical Branch amLODIPine Yes [id number] 2.5mg Take 1 Univers 2.5 mg 9-13 tablet by ity of tablet 00:00: mouth in [place] 00 the Medical morning. Branch metoprolol Yes [id number] 12.5mg Take 0.5 Univers tartrate 25 9-13 tablets by it y of mg tablet 00:00: [place] 00 the Medical morning Branch and 0.5 tablets in the evening. atorvastati Yes [id number] 40mg Take 1 Univers n 40 mg 9-13 tablet by ity of tablet 00:00: mouth at [place] 00 bedtime. Medical Branch HYDROcodone Yes 1{tbl} 1 tablet, Univers -acetaminop 11-27 Oral, ity of hen (NORCO 21:16: Q6HPRN, [facility]) 5-325 mg 22 Starting Medi wale tablet 1 on [facility] tablet 11/27/22 at 1616, Until Discontinu ed, Routine, Pain (scale 4-6) acetaminoph Yes 650mg 650 mg, Un yoana en 11-27 Oral, ity of (TYLENOL) 21:12: Q6HPRN, [place] tablet 650 39 Starting Medic al mg on Tue Branch 11/27/22 at 1612, Until Discontinu ed, Routine, Pain (scale 1-3) nitroglycer 2022- No [id number] .8mg 0.8 mg, Univers in 11-27 Sublingual ity of (NITROSTAT) 20:15: 19:15 , ONCE, 1 [place] sublingual 00 :00 dose, On Medic al tablet 0.8 Tue Branch mg 11/27/22 at 1515, KASSIDY iopamidol 2022- No [id number] 80mL 80 mL, U nivers (ISOVUE 11-27 Intravenou ity o f 370-500 mL) 20:15: 19:25 s, ONCE, 1 [place] injection 00 :00 dose, On Medica l 80 mL Branch 11/27/22 at 1515, Routine acetaminoph 2022-0 3- No 1{tbl} 1 tablet, Univers en-codeine 11-27 Oral, ity of (TYLENOL 11:15: 10:29 ONCE, 1 [place] #3) 300-30 00 :00 dose, On Medic al mg tablet 1 [facility] tablet 11/27/22 at 0615, Routine acetaminoph 2022-2022- No 1{tbl} 1 tablet, Univers en-codeine 11-26 Oral, ity of (TYLENOL 18:45: 18:50 ONCE, 1 [place] #3) 300-30 00 :00 dose, On Medic al mg tablet 1 [facility] tablet 11/26/22 at 1345, Routine metoprolol 0 Yes 12.5mg 12.5 mg, U nivers tartrate 11-26 Oral, BID, ity o f (LOPRESSOR) 13:00: First dose [place] tablet 12.5 00 on Mon Medica l mg 11/26/22 at Branch 0800, Until Discontinu ed, Routine perflutren 2022-2022- No [id number] 3mL 3 mL, IV Univers protein-A 11-25 Push, ity of microsphr 15:00: 15:00 ONCE, 1 [place] (OPTISON) 00 :00 dose, On Medica l injection 3 [facility] mL 11/25/22 at 1000, Routine pantoprazol 0 Yes 40mg 40 mg, Univ ers e 11-25 Oral, ity of (PROTONIX) 14:00: DAILY, [place] EC tablet 00 First dose Medi wale 40 mg on [place] Branch 11/25/22 at 0900, Until Discontinu ed, Routine clopidogreL 2022-2022- No 75mg 75 mg, Uni vers (PLAVIX) 75 11-25 Oral, ity of mg tablet 14:00: 14:47 DAILY, [place] 75 mg 00 :08 First dose Medical on [facility] 11/25/22 at 0900, Until Discontinu ed, Routine magnesium 2022-0 2022- No 4g 4 g, IV Univ ers sulfate in 11-25 Piggyback, it y of water 4 04:15: 07:19 at 25 [place] gram/50 mL 00 :00 mL/hr Medical (8 %) IV Administer Branc h Piggyback 4 over 120 g Minutes, ONCE, 1 dose, On [facility] 11/24/22 at 2315, Routine atorvastati 2022-0 Yes 40mg 40 mg, Univ ers n (LIPITOR) 9-10 Oral, QHS, it y of tablet 40 02:00: First dose [place] mg 00 on [facility] Medical 11/24/22 at Branch 2100, Until Discontinu ed, Routine lactated 2022-0 2023- No 500mL at 999 Unive rs ringers IV 11-24-11 mL/hr, 500 it y of infusion 23:00: 12:43 mL, [place] 500 mL 00 :00 Intravenou Medical s, ONCE, 1 Branch dose, On [facility] 11/24/22 at 1800, Routine lactated 2022-0 2022- No 500mL at 125 Unive rs ringers IV 11-24-11 mL/hr, 500 it y of infusion 21:11: 12:43 mL, [place] 500 mL 00 :00 Intravenou Medical s, ONCE, 1 Branch dose, On [facility] 11/24/22 at 1615, Routine ipratropium 2022-0 Yes 3mL 3 [facility]24 Inhalation ity of (DUONEB) 19:48: , QIDPRN, [place] 0.5 mg-3 04 Starting Medical mg(2.5 mg on [facility] Branch base)/3 mL 11/24/22 at nebulizer 1448, solution 3 Until mL Discontinu ed, Routine, Wheezing lactated 2022-0 2022- No 500mL at 999 Unive rs ringers IV 11-24-11 mL/hr, 500 it y of infusion 17:45: 12:43 mL, [place] 500 mL 00 :00 Intravenou Medical s, ONCE, 1 Branch dose, On [facility] 11/24/22 at 1245, Routine nitroglycer 2022-0 Yes .4mg 0.4 mg, Uni vers in 11-24 Sublingual ity of (NITROSTAT) 17:23: , Q5MIN [place] as sublingual 08 PRN, Medical tablet 0.4 Starting Branc h mg on 11/24/22 at 1223, Until Discontinu ed, Routine, Chest pain heparin 2022-0 2022- No 0U/h 0-2,750 Univer s 25,000 9- 09-11 Units/hr ity of Units/250 16:21: 00:06 [...] e, Dosing and Testing: &nbs p;FOR [facility], [facility], AND [facility] ONLY &nbs p; - [...] INITIAL BOLUS OR INITIAL INFUSION RATE.
furosemide 2022-0 Yes 20mg QD Take 1 [facility] (LASIX) 20 -28 tablet (20 [place] es MG tablet 00:00: mg total) Med ical 00 by mouth Center in the morning. NIFEdipine 2022-0 Yes 60mg QD Take 1 [facility] (PROCARDIA- 5-27 tablet (60 Iqra kes XL) 60 MG 00:00: mg total) Med ical (OSM) 24 hr 00 by mouth Cent er tablet in the morning. metoprolol 0 Yes 50mg Q.5D Take 1 [facility] t tartrate 5-27 tablet (50 [facility] (LOPRESSOR) 00:00: mg total) M edical 50 MG 00 by mouth Center tablet in the morning and 1 tablet (50 mg total) before bedtime. atorvastati 2023- No 40mg QD Take [address] n (LIPITOR) 08-11-26 tablet (40 L ukes 40 MG 00:00: 23:59 mg total) Medica l tablet 00 :00 by mouth Center nightly. doxycycline 2022-2022- No 100mg Q.5D Take [address] (MONODOX) 08-11-03 capsule [facility] 100 MG 00:00: 23:59 (100 mg Medical capsule 00 :00 total) by Center mouth in the morning and 1 capsule (100 mg total) before bedtime. Do all this for 7 days. metroNIDAZO 2022-0 2022- No 500mg Q.5D Take [address] [facility] (FLAGYL) 08-11-03 tablet [facility] 500 MG 00:00: 23:59 (500 mg Medical tablet 00 :00 total) by Center mouth in the morning and 1 tablet (500 mg total) before bedtime. Do all this for 7 days. . NIFEdipine 2022-0 2022- No 60mg QD Take [address] (PROCARDIA- 5-20 05-27 tablet (60 L ukes XL) 60 MG 00:00: 00:00 mg total) Me dical (OSM) 24 hr 00 :00 by mouth Cent er tablet in the morning. atorvastati 2022-2022- No 40mg QD Take [address] n (LIPITOR) - 05-27 tablet (40 L ukes 40 MG 00:00: 00:00 mg total) Medica l tablet 00 :00 by mouth Center nightly. metroNIDAZO 2022- No 500mg Q.[id number] Take [address] [facility] (FLAGYL) 08-03 05-27 [id number] tablet [facility]ukes 500 MG 00:00: 00:00 3D (500 mg Medical tablet 00 :00 total) by Center mouth in the morning and 1 tablet (500 mg total) at noon and 1 tablet (500 mg total) in the evening. . doxycycline 2022- No 100mg Q.5D Take [address] (MONODOX) 08-03 05-21 capsule [facility] 100 MG 00:00: 00:00 (100 mg Medical capsule 00 :00 total) by Center mouth in the morning and 1 capsule (100 mg total) before bedtime. divalproex 2022- No epilepsy 125mg QD Take [address] (DEPAKOTE) 5-15 05-15 mg by [facility] 125 MG EC 14:52: 00:00 mouth Medica l tablet 09 :00 daily. [place] divalproex 2018-03 Yes epilepsy 125mg QD Take [address] (DEPAKOTE) 2-04 mg by [facility]ukes 125 MG EC 10:36: mouth Medical tablet 04 daily. Center divalproex 2018-03 Yes epilepsy 125mg QD Take [address] (DEPAKOTE) 2-04 mg by [facility]ukes 125 MG EC 10:36: mouth Medical tablet 04 daily. [place] divalproex 2018-03 Yes epilepsy 125mg QD Take [address] (DEPAKOTE) 2-04 mg by [facility]ukes 125 MG EC 10:36: mouth Medical tablet 04 daily. [place] famotidine 2018-03 Yes 1{tbl} Take 1 [facility] [...] 00 every 12 Center (twelve) hours. famotidine 2019-1 2023- No 1{tbl} Take [address] (PEPCID) 20 1-30 05-15 tablet by Iqra kes MG tablet 00:00: 00:00 mouth Medica l 00 :00 every 12 Center (twelve) hours. Vital Signs Vital Name Observation Time Observation Value Comments Source Respiratory rate 2022-11-29 01:59:00 18 /min [facility] Oxygen saturation in 2022-11-29 01:59:00 93 /min [facility] Arterial blood by [facility] [place] Pulse oximetry Branch Systolic blood 2022-11-29 01:23:00 126 [facility]Hg[facility] Diastolic blood 2022-11-29 01:23:00 75 mm[facility]Hg[facility] Heart rate 2022-11-29 01:23:00 72 /min [facility] Body temperature 2022-11-29 01:23:00 36.94 Nahomi [facility] Body weight 2022-11-28 05:16:[address] [facility] BMI 2022-11-28 05:16:00 28.40 kg/m2 [facility] Body height 2022-11-24 16:52:[address] [facility] WEIGHT 2022-11-12 07:05:00 74.6 kg WEIGHT 2022-11-11 07:10:00 74.6 kg WEIGHT 2022-11-10 09:00:00 74.6 kg WEIGHT 2022-10-29 03:30:00 74.6 kg WEIGHT 2022-11-12 07:05:00 74.6 kg WEIGHT 2022-11-11 07:10:00 74.6 kg WEIGHT 2022-11-10 09:00:00 74.6 kg WEIGHT 2022-10-29 03:30:00 74.6 kg WEIGHT 2022-08-05 19:35:00 58.968 kg HEIGHT 2022-08-05 19:35:00 157.5 cm WEIGHT 2022-08-05 19:35:00 58.968 kg HEIGHT 2022-08-05 19:35:00 157.5 cm WEIGHT 2022-07-30 14:32:00 58.968 kg HEIGHT 2022-07-30 14:32:00 157.5 cm WEIGHT 2022-07-30 14:32:00 58.968 kg HEIGHT 2022-07-30 14:32:00 157.5 cm Heart rate 2022-08-11 12:33:33 76 /min [facility] Respiratory rate 2022-08-11 12:33:33 18 /min [facility] Oxygen saturation in 2022-08-11 12:33:33 97 /min [facility] Arterial blood by Medical Ce nter Pulse oximetry Body temperature 2022-08-11 12:33:11 36.56 Nahomi [facility] Systolic blood 2022-08-11 12:32:45 129 mm[Hg] [facility] Diastolic blood 2022-08-11 12:32:45 80 mm[Hg] [facility] Body height 2022-08-05 19:35:00 157.5 cm [facility] Body weight 2022-08-05 19:35:00 58.968 kg [facility] BMI 2022-08-05 19:35:00 23.78 kg/m2 [facility] Procedures Procedure Date / Time Performing Clinician Source Performed MAGNESIUM 2022-11-28 09:22:00 Casi Maddox [facility] BASIC METABOLIC PANEL 2022-11-28 09:22:00 Casi Maddox [facility] (NA, K, CL, CO2, Medical Branch GLUCOSE, BUN, CREATININE, CA) CBC WITH DIFF 2022-11-28 09:22:00 Casi Maddox [facility] CT ANGIOGRAPHY 2022-11-27 19:24:21 Tori Hanna [facility] CORONARIES WITH CARDIAC [facility] CALCIUM SCORE CT HEAD WO CONTRAST 2022-11-27 17:24:05 [facility] CBC WITHOUT DIFF 2022-11-27 09:15:00 Joel Willis [facility] MAGNESIUM 2022-11-26 09:21:00 Sue Miller [facility] HEPATIC FUNCTION PANEL 2022-11-26 09:21:00 Joel Willis [facility] ([id number]) (ALB,T.PRO,BILI Medical Branch T,BU/BC,ALT,AST,ALK PHOS) BASIC METABOLIC PANEL 2022-11-26 09:21:00 Paul [facility] (NA, K, CL, CO2, Medical Branch GLUCOSE, BUN, CREATININE, CA) CBC WITH DIFF 2022-11-26 09:21:00 Paul [facility] ACTIVATED PARTIAL 2022-11-25 22:48:[address] [facility] EKG-12 LEAD 2022-11-25 17[facility]52:[facility] 2022-11-25 17:51:00 Philip Chris [facility] HB ECG ROUTINE & RHYTHM 2022-11-25 17:39:36 Joel [facility] STRIP [facility] Branch ACTIVATED PARTIAL 2022-11-25 15:42:[address] [facility] TRANSTHORACIC ECHO (TTE) 2022-11-25 14:57:34 Joel Willis [facility] COMPLETE W/ CONTRAST Medical Bra nch MAGNESIUM 2022-11-25 09:20:00 Joel Willis [facility] BASIC METABOLIC PANEL 2022-11-25 09:20:00 Joel Willis [facility] (NA, K, CL, CO2, Medical Branch GLUCOSE, BUN, CREATININE, CA) URINE DRUG (IMMUNOASSAY) 2022-11-25 07:32:00 Joel Willis [facility] - COMPREHENSIVE DRUG Medical Bra [facility] SCREEN GC & CHLAMYDIA AMPLIFIED 2022-11-25 07:32:00 Joel Willis [facility] ASSAY [facility] URINE DRUG (LCMSMS) - 2022-11-25 07:32:00 Joel Willis [facility] SYNTHETIC OPIATES PANEL Medical Branch CBC WITHOUT DIFF 2022-11-25 07:31:00 Lazaro [facility] ACTIVATED PARTIAL 2022-11-25 07:31:[address] [facility] URINALYSIS 2022-11-25 07:31:00 Lazaro [facility] MAGNESIUM 2022-11-25 01:31:00 [facility]OLIC PANEL 2022-11-25 01:31:00 Bruno [facility] (NA, K, CL, CO2, Medical Branch GLUCOSE, BUN, CREATININE, CA) ACTIVATED PARTIAL 2022-11-25 01:31:[address] [facility] TROPONIN I 2022-11-24 23:01:00 Lazaro [facility] BLOOD CULTURE SCREEN 2022-11-24 22:57:00 Lazaro [facility] XR CHEST 1 VW 2022-11-24 21:30:59 Lazaro [facility] US ABDOMEN LIMITED 2022-11-24 21:30:31 Lazaro [facility] XR CHEST 1 VW 2022-11-24 20:37:[address] [facility] CT HEAD WO CONTRAST 2022-11-24 18:42:54 Lazaro [facility] ACTIVATED PARTIAL 2022-11-24 17:43:[address] [facility] CBC WITH DIFF 2022-11-24 16:39[facility]A S[facility]EN BY 2022-11-24 16:39[facility]00 [facility]IN I 2022-11-24 16:34:00 Lazaro [facility] THYROID STIMULATING 2022-11-24 16:34:[facility] Branch HEPATIC FUNCTION PANEL 2022-11-24 16:34:00 [id number] (ALB,T.PRO,BILI Medical Branch T,BU/BC,ALT,AST,ALK PHOS) BASIC METABOLIC PANEL 2022-11-24 16:34:00 [facility] (NA, K, CL, CO2, Medical Branch GLUCOSE, BUN, CREATININE, CA) LIPID PANEL 2022-11-24 16:34:00 Lazaro [facility] ([id number])(TOTAL Medical Branch CHOLESTEROL, TRIGLYCERIDES, HDL) GLYCOSYLATED HEMOGLOBIN 2022-11-24 16:34:00 Joel [facility] (A1C) Medical Branch PROTHROMBIN TIME / INR 2022-11-24 16:34:00 Joel Willis [facility] HEPATITIS B SURFACE 2022-11-24 16:34:00 Lazaro [facility] ANTIBODY Medical Branch HEPATITIS B SURFACE 2022-11-24 16:34:00 Lazaro [facility] ANTIGEN [facility] Branch HCV ANTIBODY 2022-11-24 16:34:[address] [facility] o f [facility] HEPATITIS A VIRUS 2022-11-24 16:34:00 Lazaro [facility] ANTIBODY IGM [facility] N-TERMINAL PRO-BNP 2022-11-24 16:34:00 [facility]2 AG-AB WITH 2022-11-24 16:34:00 Lazaro [facility] REFLEX [facility] EKG-12 LEAD 2022-11-24 16:22:20 [facility] BASIC METABOLIC PANEL 2022-08-11 04:41:00 Clifton De Luna [facility] MAGNESIUM 2022-08-11 04:41:00 Pablo [facility] CALCIUM, IONIZED 2022-08-11 04:41:00 [facility] PHOSPHORUS 2022-08-11 04:41:00 [facility] CBC W/PLT COUNT & AUTO 2022-08-11 04:41:00 [facility] DIFFERENTIAL [place] CBC W/PLT COUNT & AUTO 2022-08-11 04:41:00 [facility] BASIC METABOLIC PANEL 2022-08-10 16:09:00 [facility] SODIUM, RANDOM URINE 2022-08-10 09:33:00 Pablo [facility] UREA NITROGEN, RANDOM 2022-08-10 09:33:00 [facility] URINE [facility] CREATININE, RANDOM URINE 2022-08-10 09:33:00 [facility] OSMOLALITY, URINE 2022-08-10 09:33:00 [facility] TSH/FREE T4 IF INDICATED 2022-08-10 09:33:00 [facility] CORTISOL 2022-08-10 09:33:00 [facility] OSMOLALITY, SERUM 2022-08-10 09:33:00 [facility] T4, FREE 2022-08-10 09:33:00 [facility] CBC (HEMOGRAM ONLY) 2022-08-10 05:06:00 [facility] BASIC METABOLIC PANEL 2022-08-10 05:06:00 [facility] MAGNESIUM 2022-08-10 05:06:00 [facility] CBC (HEMOGRAM ONLY) 2022-08-09 03:38:00 [facility] BASIC METABOLIC PANEL 2022-08-09 03:38:00 [facility] MAGNESIUM 2022-08-09 03:38:00 [facility] CBC (HEMOGRAM ONLY) 2022-08-08 04:25:00 [facility] BASIC METABOLIC PANEL 2022-08-08 04:25:00 [facility] B-TYPE NATRIURETIC 2022-08-08 04:25:00 [facility] FACTOR (BNP) [facility] STD PANEL - CT/GC RNA 2022-08-07 16:52:00 Athreya, [facility] FUNGUS CULTURE + SMEAR 2022-08-07 10:22:00 Aida Alcala I [facility] ANAEROBIC CULTURE 2022-08-07 10:22:00 Aida Alcala [facility] WOUND CULTURE + GRAM 2022-08-07 10:22:00 [facility] STAIN [facility] RADIOLOGIC GUIDANCE & 2022-08-07 10:20:00 Aida Alcala [facility] INTERP/SPEC [facility] BASIC METABOLIC PANEL 2022-08-07 03:42:00 [facility] CBC (HEMOGRAM ONLY) 2022-08-07 03:41:00 Higin[facility] ABDOMEN/PELVIS WITH 2022-08-06 00:22:00 Aida Alcala I [facility] IV CONTRAST [facility] SCREEN, URINE 2022-08-05 21:06:00 OnRonal day [facility] CBC W/PLT COUNT & AUTO 2022-08-05 20:40:00 Aida Alcala [facility] DIFFERENTIAL [facility] BASIC METABOLIC PANEL 2022-08-05 20:40:00 Aida Alcala [facility] PROTHROMBIN TIME/INR 2022-08-05 20:40:00 [facility] TYPE AND SCREEN, 2022-08-05 20:40:00 Aida Alcala [facility] AUTOMATED [facility] CBC W/PLT COUNT & AUTO 2022-08-05 20:40:00 Aida Alcala I [facility] DIFFERENTIAL [facility] (CELLAVISION MANUAL 2022-08-05 20:40:00 Aida Alcala [facility] DIFF) [facility] TRANSTHORACIC ECHO FOR 2022-08-03 13:59:39 Unknown, Hl7 Doctor [facility] BASIC METABOLIC PANEL 2022-08-03 04:31:[address] [facility] (HEMOGRAM ONLY) 2022-08-03 04:31:00 Clifton De Luna [facility] CBC W/PLT COUNT & AUTO 2022-08-02 13:09:00 [facility] BASIC METABOLIC PANEL 2022-08-02 13:09:00 [facility] CBC W/PLT COUNT & AUTO 2022-08-02 13:09:00 [facility] (CELLAVISION MANUAL 2022-08-02 13:09:00 [facility] DIFF) [place] MYOCARDIAL PERFUSION 2022-08-01 13:31:00 [facility] SPECT, PHARM [facility] TREAD[facility] 2022-08-01 11:39:56 Unknown, 7 [facility](NON-NUCLEAR Center TREADMILL) ECG 12-LEAD 2022-08-01 10:14:26 Unknown, 7 [facility] ECG 12-LEAD 2022-08-01 10:14:26 Unknown, [address] ECG 12-LEAD 2022-08-01 10:13:38 Unknown, 7 [facility] ECG 12-LEAD 2022-08-01 10:13:38 Unknown, 7 [facility] CBC W/PLT COUNT & AUTO 2022-08-01 04:47:00 Leonid Harris [facility] BASIC METABOLIC PANEL 2022-08-01 04:47:00 Leonid Harris [facility] MAGNESIUM 2022-08-01 04:47:00 Leonid Harris [facility] PHOSPHORUS 2022-08-01 04:47:00 Leonid Harris [facility] HEMOGLOBIN A1C 2022-08-01 04:47:00 [facility]AP[facility] 2022-08-01 04:47:00 Nena Waller [facility] HCG, QUANTITATIVE, 2022-08-01 04:47:00 [facility] TYPE AND SCREEN, 2022-08-01 04:47:00 Leonid Harris [facility] AUTOMATED Center CBC W/PLT COUNT & AUTO 2022-08-01 04:47:00 Leonid Harris [facility] DIFFERENTIAL Center (CELLAVISION MANUAL 2022-08-01 04:47:00 [facility] Center 2D ECHO W/ DOPPLER 2022-07-31 15:20:04 [facility] (CW/PW/COLOR) [facility] ECG 12-LEAD 2022-07-31 15:01:36 [facility] ECG 12-LEAD 2022-07-31 15:01:36 Unknown, Hl7 [facility] ENDOVAGINAL EV 2022-07-31 12:52:00 [facility] US PELVIS 2022-07-31 12:52:00 [facility] US DOPPLER 2022-07-31 12:52:00 [facility] BASIC METABOLIC PANEL 2022-07-31 03:09:00 Dewayne Reilly [facility] An [place] MAGNESIUM 2022-07-31 03:09:00 Dewayne Reilly [facility] An [place] PHOSPHORUS 2022-07-31 03:09:00 Dewayne Reilly [facility] CBC W/PLT COUNT & AUTO 2022-07-31 03:09:00 Dewayne Reilly [facility] DIFFERENTIAL [facility] LIPID PANEL 2022-07-31 03:09:00 [facility] CBC W/PLT COUNT & AUTO 2022-07-31 03:09:00 Dewayne Reilly [facility] DIFFERENTIAL An [place] XR CHEST 1 VIEW PORTABLE 2022-07-30 16:42:00 Dewayne Reilly P is [facility] Medical / BEDSIDE An Center CBC W/PLT COUNT & AUTO 2022-07-30 15:38:00 Dewayne Reilly [facility] DIFFERENTIAL An Center BASIC METABOLIC PANEL 2022-07-30 15:38:00 [facility] An Center PROTHROMBIN TIME/INR 2022-07-30 15:38:00 Dewayne Reilly Pis [facility] Medical An Center MAGNESIUM 2022-07-30 15:38:00 [facility] hospital[facility] An Center CBC W/PLT COUNT & AUTO 2022-07-30 15:38:00 Dayron Foster [facility] DIFFERENTIAL [facility] Plan of Care Planned Activity Planned Date Details Comments Source Future Scheduled 2025-07-31 Lipid panel (procedure) [facility] 00:00:00 [code = 83606207] Medical Ce nter Future Scheduled 2022-11-16 Influenza [...] [facility] 00:00:00 [code = 01909207] Medical Ce nter Future Scheduled 2021-03-18 DEPRESSION [...] cervix Medical C enter (procedure) [code = 550393812] Future Scheduled 1997 Screening for malignant [facility] Test 00:00:00 neoplasm of cervix Medical C enter (procedure) [code = 481406136] Future Scheduled 1995 DTAP/TDAP/TD VACCINES (1 [facility] [...] screening Medical Cent er (procedure) [code = 439226553] Future Scheduled [address] [facility] Test 00:00:00 [code = CT Colonography [facility] (combo)] Future Scheduled 1976 Screening for malignant [facility] Test 00:00:00 neoplasm of colon Medical Ce nter (procedure) [code = 214419741] Future Scheduled 1976 Screening for malignant [facility] Test 00:00:00 neoplasm of colon Medical Ce nter (procedure) [code = 594255612] Future Scheduled 1976 Screening for malignant [facility] Test 00:00:00 neoplasm of colon Medical Ce nter (procedure) [code = 365372833] Future Scheduled 1976 Screening for malignant [facility] Test 00:00:00 neoplasm of colon Medical Ce nter (procedure) [code = 225972560] Future Scheduled 1976 Sigmoidoscopy [code = [facility]oscopy] Medical Cente r Future Scheduled 1976 CT Colonography (combo) [facility] Test 00:00:00 [code = CT Colonography [facility] (combo)] Future Scheduled 1976 Screening for malignant [facility] Test 00:00:00 neoplasm of colon Medical Ce nter (procedure) [code = 115315016] Future Scheduled 1976 Screening for malignant [facility] Test 00:00:00 neoplasm of colon Medical Ce nter (procedure) [code = 855671484] Future Scheduled 1976 Screening for malignant [facility] Test 00:00:00 neoplasm of colon Medical Ce nter (procedure) [code = 014977693] Future Scheduled 1976 Screening for malignant [facility] Test 00:00:00 neoplasm of colon Medical Ce nter (procedure) [code = 821103386] Future Scheduled 1976 Sigmoidoscopy [facility]code [facility]oscopy] Medical Cente r Encounters Start End Encounter Admission Attending Care Care Encounter Source Date/Time Date/Time Type Type Clinicians Facility Department ID 2022-11-07 Inpatient ER ZAHRA PASCUAL [facility] [id number] [facility] 19:39:43 2022-11-06 Inpatient ER SUSIE TAI [facility] [id number] [facility] 11:21:11 2022-11-06 Inpatient ER SUSIE TAI [facility] [id number] [facility] 10:39:32 2022-11-05 Inpatient ER SUSIE TAI [facility] [id number] [facility] 13:31:19 2022-11-03 Inpatient ER SUSIE TAI [facility] [id number] [facility]H 10:45:25 2022-11-01 Inpatient ER SLEH [facility] [id number] [facility] 09:28:17 2022-11-01 Inpatient ER SLEH [facility]H [id number] [facility] 09:11:47 2022-10-31 Inpatient ER BERSHAD, SLEH [facility] [id number] [facility] 00:51:03 KATHY 2022-10-31 Inpatient ER BERSHAD, SLEH [facility] [id number] [facility] 00:50:54 KATHY 2022-10-30 Inpatient ER SLEH SLEH [id number] SLEH 15:54:13 2022-10-30 Inpatient ER BERSHAD, SLEH [facility]H [id number] [facility] 09:14:25 KATHY 2022-10-30 Inpatient ER BERSHAD, SLEH [facility]H [id number] SLEH 05:26:11 KATHY 2022-10-29 Inpatient ER BERSHAD, SLEH [facility]H [id number] [facility] 17:09:25 KATHY 2022-10-29 Inpatient ER PITTARD, SLEH SLEH [id number] SLEH 03:50:03 MURRAY 2022-12-27 2022-12-27 Outpatient SFA SFA [id number] Martin 10:33:43 10:33:43 1012 F Tello 2022-11-29 2022-11-29 Transition MONSE Sotelo [id number] Univers 00:00:00 00:00:00 of Care Desi REDDY [id number] sandy [facility] 4[id number] [address] Branch 2022-11-24 2022-11-[address] [facility] [id number] Univers 11:15:00 21:45:00 RYNE delgado [facility] 2022-11-24 2022-11-28 [facility] [place] [id number] Univers 11:15:00 21:45:00 Encounter Ryne Yoder 350.1.13.1 0 ity [facility] 4.2.7.2.686 [place] [id number] [facility] 090 Branch 2022-11-24 2022-11-[address] [facility] [id number] Univers 11:15:00 21:45:00 RYNE akbary [facility] 2022-10-29 2022-11-13 Inpatient ER , [facility] Neurology [id number] SLE[facility] 02:56:00 21:30:00 GOYO 2022-11-06 2022-11-06 Inpatient ER SLEH SLE [id number] SLEH 08:32:27 00:00:00 2022-11-05 2022-11-05 Outpatient SLEH SLEH [id number] [facility]H 00:00:00 00:00:00 2022-11-05 2022-11-05 Outpatient SLEH SLEH [id number] [facility]H 00:00:00 00:00:00 2022-11-02 2022-11-02 Inpatient ER SUSIE TAI SLE SLEH [id number] SLEH 10:58:08 00:00:00 2022-10-29 2022-10-29 Inpatient ER PITTARD, SLEH SLE [id number] SLEH 10:12:32 23:59:00 MURRAY 2022-10-29 2022-10-29 Inpatient ER PITTARD, SLEH SLE [id number] SLEH 10:12:49 00:00:00 MURRAY 2022-10-29 2022-10-29 Inpatient ER PITTARD, SLEH SLE [id number] SLEH 10:12:41 00:00:00 MURRAY 2022-08-12 2022-08-12 Telephone [facility] [id number] [facility] 00:00:00 00:00:00 [facility] 2022-08-05 2022-08-11 Inpatient ER PABLO, SLE Gynecology [id number] [facility] 18:09:00 14:47:00 KRISTIN 2022-08-05 2022-08-11 Hospital ER Popeye Mcneal In [facility] [id number] 18:09:00 14:47:00 Encounter Aida Alcala [facility] NicolaKristin otoole [place] 2022-08-05 2022-08-05 Travel [facility] [id number] [facility] 00:[facility] 00:00:00 [facility] 2022-07-31 2022-08-03 Inpatient UR ANNAMARIE [facility] [id number] [facility] 04:37:00 20:00:00 [facility] 2022-07-31 2022-08-03 Hospital UR Les Al [facility] [id number] 04:37:00 20:00:00 Encounter Nena Waller [facility] MatiasLeonid [place] 2022-07-30 2022-07-31 [facility] [id number] [facility] 14:07:00 04:04:00 [employer] 2022-07-30 2022-07-31 [facility] ER [facility], [facility] [id number] 14:07:00 04:04:00 Encounter Dayron [facility] 2022-07-31 2022-07-31 Orders [facility] [id number] 00:00:00 00:00:00 Only [facility] 2022-07-30 2022-07-30 Travel [facility] [id number] [facility] 00:[facility] 00:00:00 [facility] Results Test Description Test Time Test Comments Results Result Comments Source HEPATIC FUNCTION PANEL (18320) (ALB,T.PRO,BILI 2022-11-26 13 :08:17 T,BU/BC,ALT,AST,ALK PHOS) Test Item Value Reference Range Interpretation Comme nts TOTAL BILI (test code = 2417779679) 0.9 mg/dL 0.1-1.1 BILI UNCON (test code = 0839037488) 0.6 mg/dL 0.1-1.1 BILI CONJ (test code = 5208282081) 0.0 mg/dL 0.0-0.3 T PROTEIN (test code = 4421224107) 6.5 g/dL 6.3-8.2 ALBUMIN (test code = 8800362354) 4.0 g/dL 3.5-5.0 ALK PHOS (test code = 5992092085) 527 U/L 34-122 H ALTv (test code = 1742-6) 116 U/L 5-35 H AST(SGOT) (test code = 1669443490) 76 U/L 13-40 H Lab Interpretation (test code = 91950-1) Abnormal [facility] METABOLIC PANEL (NA, K, CL, CO2, GLUCOSE, BUN, CREATININE, CA)2022-11-26 10:08:01 Test Item Value Reference Range Interpretation Comments NA (test code = 136 mmol/L 135-145 2081934911) K (test code = 4.1 mmol/L 3.5-5.0 6001632303) CL (test code = 100 mmol/L 98-108 0106662924) CO2 TOTAL (test code 28 mmol/L 23-31 = 9950232615) AGAP (test code = 8 2-16 1441618946) BUN (test code = 17 mg/dL 7-23 2985356563) GLUCOSE (test code = 87 mg/dL 70-110 9966366795) CREATININE (test code 1.00 mg/dL 0.50-1.04 = 8459267341) CALCIUM (test code = 9.3 mg/dL 8.6-10.6 1758255854) eGFR (test code = 59.7 mL/min/1.73m2 4385293256) SUE (test code = SUE) Association of [...] or urine or abnormalities in imaging tests). [facility] 10:08:01 Test Item Value Reference Range Interpretation Comments MAGNESIUM (test code = 5507135084) 1.8 mg/dL 1.7-2.4 Lab Interpretation (test code = Normal 37541-8) [facility] WITH [id number] 09:36:22 Test Item Value Reference Range Interpretation Comments WBC (test code = 4.18 See_Comment L [Automated 6690-2) message] The sy stem which generated this result transmitted reference range : 4.30 - 11.10 10*3/?L. The reference range was not used to interpret this result as normal/abnormal . RBC (test code = 3.39 See_Comment L [Automated 869-8) message] The sy stem which generated this [...] RDW-SD (test code = 42.7 fL 39.0-49.9 56256-7) RDW-CV (test code = 12.5 % 12.0-15.5 788-0) PLT (test code = 151 See_Comment L [Automated 777-3) message] The sy stem which generated this result transmitted reference range : 166 - 358 10*3/ ?L. The reference r elizabeth was not used to interpret this result as normal/abnormal . MPV (test code = 9.4 fL 9.5-12.9 L 00242-5) NRBC/100 WBC (test 0.0 See_Comment [Automat ed code = 4484416032) message] The system which generated this result transmitted reference range : 0.0 - 10.0 /100 WBCs. The refer ence range was not u sed to interpret th is result as normal/abnormal . NRBC x10^3 (test code See_Comment [Auto mated = 3998661313) message] The s ystem which generated this result transmitted reference range : 10*3/?L. The reference range was not used to interpret this result as normal/abnormal . GRAN MAT (NEUT) % 68.0 % (test code = 770-8) IMM GRAN % (test code 0.00 % = 0085475641) LYMPH % (test code = 17.7 % 736-9) MONO % (test code = 9.1 % 5905-5) EOS % (test code = 4.5 % 713-8) BASO % (test code = 0.7 % 706-2) GRAN MAT x10^3(ANC) 2.84 10*3/uL 1.88-7.09 (test code = 0087341504) IMM GRAN x10^3 (test 0.00-0.06 code = 3910245788) LYMPH x10^3 (test code 0.74 10*3/uL 1.32-3.29 L = 731-0) MONO x10^3 (test code 0.38 10*3/uL 0.33-0.92 = 742-7) EOS x10^3 (test code = 0.19 10*3/uL 0.03-0.39 711-2) BASO x10^3 (test code 0.03 10*3/uL 0.01-0.07 = 704-7) Lab Interpretation Abnormal (test code = 52625-0) [facility] METABOLIC PANEL (NA, K, CL, CO2, GLUCOSE, BUN, CREATININE, CA)2022-11-25 09:47:18 Test Item Value Reference Range Interpretation Comments NA (test code = 135 mmol/L 135-145 9625203973) K (test code = 5.0 mmol/L 3.5-5.0 Slight 5750796449) hemolysis CL (test code = 100 mmol/L 98-108 0235376940) CO2 TOTAL (test code 28 mmol/L 23-31 = 8791765134) AGAP (test code = 7 2-16 5296850204) BUN (test code = 20 mg/dL 7-23 Slight 8905635891) hemolysis GLUCOSE (test code = 109 mg/dL 70-110 5506894391) CREATININE (test code 1.20 mg/dL 0.50-1.04 H = 9361738325) CALCIUM (test code = 9.2 mg/dL 8.6-10.6 2111410086) eGFR (test code = 48.4 mL/min/1.73m2 4359539401) SUE (test code = SUE) Association of [...] tests). Lab Interpretation Abnormal (test code = 73187-2) [facility] 09:42:55 Test Item Value Reference Range Interpretation Comments MAGNESIUM (test code = 1327109550) 3.1 mg/dL 1.7-2.4 H Lab Interpretation (test code = Abnormal 45256-9) [facility] Center[facility]AT[facility] A VIRUS ANTIBODY [id number] 23:52:42 Test Item Value Reference Range Interpretation Comments HAVM 0.05 Semi-Quantitative (test code = 14455-6) SUE (test code = HAVAb IgM Interpretative SUE) Information: Reactive greater than or equal to 1.2 Biotin has been reported to cause a negative bias, interpret results relative to patient's use of biotin. [facility] Center[facility] [id number] 23:35:43 Test Item Value Reference Range Interpretation Comments TROPONIN I (test code = 0.911 ng/mL <=0.034 H 4229076583) SUE (test code = SUE) Reference (Normal) [...] biotin. Lab Interpretation Abnormal (test code = 41084-3) [facility]2 AG-AB WITH [id number] 21:57:58 Test Item Value Reference Range Interpretation Comments HIV 0.12 Negative Semi-quantitative (test code = 31574-0) SUE (test code = Non-reactive for HIV-1 SUE) antigen and HIV-1/HIV-2 antibodies. ?No laboratory evidence of HIV infection. ?Repeat in 2-4 weeks if acute HIV infection is suspected. [facility] CenterHCV [id number] 21:57:58 Test Item Value Reference Range Interpretation Comments HCV Ab (test code = 36807-0) Negative HCV Semi-Quantitative (test code = 0.01 76985-6) [facility] Center[facility]AT[facility]IS B SURFACE [id number] 21:57:58 Test Item Value Reference Range Interpretation Comments HBsAB (test code = Negative 8617533036) HBsAb 0.00 mIU/mL Semi-Quantitative (test code = 3983306181) SUE (test code = Interpretation: SUE) ?Hepatitis B Surface Antibody ? Negative - Patient is considered to be not immune to infection with HBV. ? ? Positive - Anti-HBs detected at greater than or equal to 12 mIU/mL. ?Patient is considered to be immune to infection with HBV. ? [facility] CenterHEPAT[facility]IS [facility] SURFACE [id number] 21:40:35 Test Item Value Reference Range Interpretation Comments HBsAg Semi-Quantitative (test code = 0.14 Negative 5195-3) [facility] CenterGLYCOSYLATED HEMOGLOBIN (A1C)2022-11-24 18:18:35 Test Item Value Reference Range Interpretation Comments HGB A1C (test code = 4.6 % 4.0-5.7 4548-4) SUE (test code = SUE) Reference RangesNormal: <5.7%Prediabetes: 5.7 - 6.4%Diabetes: > 6.5% Lab Interpretation (test Normal code = 27232-9) [facility] CenterTHYROID STIMULATING [id number] 17:58:24 Test Item Value Reference Range Interpretation Comments TSH (test code = 2.03 See_Comment [Automated message] 5047981164) The system [employer] generated this result transmitted ref erence range: 0.45 - 4 .70 mIU/L. The refe rence range was not u sed to interpret this result as normal/abnor mal. Lab Interpretation (test Normal code = 66154-8) [facility] CenterTROPONIN [id number] 17:39:48 Test Item Value Reference Range Interpretation Comments TROPONIN I (test code = 1.340 ng/mL <=0.034 H 1260385392) SUE (test code = SUE) Reference (Normal) [...] biotin. Lab Interpretation Abnormal (test code = 88982-8) [facility] CenterN-TERMINAL [id number] 17:39:48 Test Item Value Reference Range Interpretation Comments NT-proBNP (test code = 2520 pg/mL <=125 H 31375-7) SUE (test code = SUE) Positive: Heart Failure Likely Lab Interpretation (test Abnormal code = 36686-2) [facility] METABOLIC PANEL (NA, K, CL, CO2, GLUCOSE, BUN, CREATININE, CA)2022-11-24 17:30:04 Test Item Value Reference Range Interpretation Comments NA (test code = 135 mmol/L 135-145 1218567970) K (test code = 3.9 mmol/L 3.5-5.0 1906540483) CL (test code = 97 mmol/L 98-108 L 8722354061) CO2 TOTAL (test code = 27 mmol/L 23-31 5841485694) AGAP (test code = 11 2-16 1825287502) BUN (test code = 23 mg/dL 7-23 2332641422) GLUCOSE (test code = 163 mg/dL 70-110 H 4352978575) CREATININE (test code = 1.40 mg/dL 0.50-1.04 H 8262515674) CALCIUM (test code = 9.4 mg/dL 8.6-10.6 6181618659) eGFR (test code = 40.5 mL/min/1.73m2 1162183271) SUE (test code = SUE) Association of [...] tests). Lab Interpretation Abnormal (test code = 88756-9) [facility] CenterHEPATIC FUNCTION PANEL (74795) (ALB,T.PRO,BILI T,BU/BC,ALT,AST,ALK PHOS)2022-11-24 17:30:04 Test Item Value Reference Range Interpretation Comments TOTAL BILI (test code = 1151827750) 1.0 mg/dL 0.1-1.1 BILI UNCON (test code = 0391564355) 0.6 mg/dL 0.1-1.1 BILI CONJ (test code = 1179237306) 0.0 mg/dL 0.0-0.3 T PROTEIN (test code = 7628307054) 6.8 g/dL 6.3-8.2 ALBUMIN (test code = 4863962883) 4.1 g/dL 3.5-5.0 ALK PHOS (test code = 9376522517) 746 U/L 34-122 H ALTv (test code = 1742-6) 183 U/L 5-35 H AST(SGOT) (test code = 8312085829) 196 U/L 13-40 H Lab Interpretation (test code = Abnormal 92107-0) [facility] CenterLIPID PANEL (38561)(TOTAL CHOLESTEROL, TRIGLYCERIDES, HDL)2022-11-24 17:30:04 Test Item Value Reference Range Interpretation Comments CHOL (test code = 9921792516) 113 mg/dL 120-200 L HDL (test code = 2989478627) 62 mg/dL >=50 HDLC RATIO (test code = 6853518361) 1.8 <=4.5 TRIG (test code = 8574763046) 71 mg/dL 30-170 LDL CHOL (test code = 56240-3) 37 mg/dL <=160 VLDL (test code = 9641964214) 14 mg/dL 5-60 Lab Interpretation (test code = Abnormal 22861-7) [facility] [id number] 16:55:22 Test Item Value Reference Range Interpretation Comments WBC (test code = 6.05 See_Comment [Automated 6690-2) message] The sy stem which generated this result transmitted reference range : 4.30 - 11.10 10*3/?L. The reference range was not used to interpret this result as normal/abnormal . RBC (test code = 3.21 See_Comment L [Automated 739-8) message] The sy stem which generated this [...] RDW-SD (test code = 44.3 fL 39.0-49.9 95560-8) RDW-CV (test code = 12.9 % 12.0-15.5 788-0) PLT (test code = 203 See_Comment [Automated 777-3) message] The sy stem which generated this result transmitted reference range : 166 - 358 10*3/ ?L. The reference r elizabeth was not used to interpret this result as normal/abnormal . MPV (test code = 9.9 fL 9.5-12.9 22427-1) NRBC/100 WBC (test 0.0 See_Comment [Automat ed code = [id number]) message] The system which generated this result transmitted reference range : 0.0 - 10.0 /100 WBCs. The refer ence range was not u sed to interpret th is result as normal/abnormal . NRBC x10^3 (test code See_Comment [Auto mated = [id number]) message] The s ystem which generated this result transmitted reference range : 10*3/?L. The reference range was not used to interpret this result as normal/abnormal . GRAN MAT (NEUT) % 59.6 % (test code = 770-8) IMM GRAN % (test code 0.20 % = 1137860853) LYMPH % (test code = 28.3 % 736-9) MONO % (test code = 9.1 % 5905-5) EOS % (test code = 2.5 % 713-8) BASO % (test code = 0.3 % 706-2) GRAN MAT x10^3(ANC) 3.61 10*3/uL 1.88-7.09 (test code = 2101369860) IMM GRAN x10^3 (test 0.00-0.06 code = 3112296505) LYMPH x10^3 (test code 1.71 10*3/uL 1.32-3.29 = 731-0) MONO x10^3 (test code 0.55 10*3/uL 0.33-0.92 = 742-7) EOS x10^3 (test code = 0.15 10*3/uL 0.03-0.39 711-2) BASO x10^3 (test code 0.01-0.07 = 704-7) Lab Interpretation Abnormal (test code = 55844-4) [facility] [id number] 12:43:54 Test Item Value Reference Range Interpretation Comments POC-GLUCOSE METER 138 mg/dL 70-110 H : [facility] (BEAKER) (test code = [place], 1538) [address]: Patternmaker Plaster/Techni smiley ID = [id number] for MANDA ESPARZA [id number] 06:54:19 Test Item Value Reference Range Interpretation Comments PHOSPHORUS (BEAKER) (test code = 4.2 mg/dL 2.3-4.7 604) Patternmaker Plaster ID - [id number] 06:54:18 Test Item Value Reference Range Interpretation Comments MAGNESIUM (BEAKER) (test code = 1.7 mg/dL 1.6-2.6 627) Patternmaker Plaster ID - ADMINCBC W/PLT COUNT & AUTO [id number] 06:00:54 Test Item Value Reference Range Interpretation [...] PERCENT (BEAKER) (test code = 2801) POCT-GLUCOSE [id number] 21:38:27 Test Item Value Reference Range Interpretation Comments POC-GLUCOSE METER 88 mg/dL 70-110 : TESTED A T [facility] 6720 (BEAKER) (test code = [facility], 153) [address]: Patternmaker Plaster/Techni smiley ID = [id number] for NADEGE MORALES POCT-GLUCOSE [id number] 18:19:26 Test Item Value Reference Range Interpretation Comments POC-GLUCOSE METER 93 mg/dL 70-110 : TESTED A T [facility] 6720 (BEAKER) (test code = [facility], 153) 21154: Patternmaker Plaster/Techni smiley ID = [id number] for MART MARY ANN, MANDA POCT-GLUCOSE [id number] 13:13:27 Test Item Value Reference Range Interpretation Comments POC-GLUCOSE METER 91 mg/dL 70-110 : TESTED A T [facility] 6720 (BEAKER) (test code = [facility], 153) 37[address]: Patternmaker Plaster/Techni smiley ID = [id number] for MART MARY ANN, MANDA BLOOD [id number] 12:00:51 Test Item Value Reference Range Interpretation Comments CULTURE (BEAKER) (test No growth in 5 days code = 1095) BLOOD [id number] 12:00:51 Test Item Value Reference Range Interpretation Comments CULTURE (BEAKER) (test No growth in 5 days code = 1095) The specimen volume collected for this blood culture was below the optimum (10 mL per bottle or 20 mL total). Use of lower volumes may adversely affect recovery and/or detection times of some organisms.POCT-GLUCOSE [id number] 06:46:01 Test Item Value Reference Range Interpretation Comments POC-GLUCOSE METER 102 mg/dL 70-110 : TESTED A T [facility] 6720 (BEAKER) (test code = [place], 1538) [address]: Patternmaker Plaster/Techni smiley ID = [id number] for Teresa Rose [id number] 05:48:23 Test Item Value Reference Range Interpretation Comments MAGNESIUM (BEAKER) (test code = 1.8 mg/dL 1.6-2.6 627) Patternmaker Plaster ID - [id number] 05:48:23 Test Item Value Reference Range Interpretation Comments PHOSPHORUS (BEAKER) (test code = 3.6 mg/dL 2.3-4.7 604) Patternmaker Plaster ID - MARCOBASIC METABOLIC [id number] 05:48:22 Test Item Value Reference Range Interpretation [...] not appl icable for dialysis patien ts Patternmaker Plaster ID - MARCOCBC W/PLT COUNT & AUTO [id number] 05:10:47 Test Item Value Reference Range Interpretation [...] PERCENT (BEAKER) (test code = 2801) POCT-GLUCOSE [id number] 23:44:35 Test Item Value Reference Range Interpretation Comments POC-GLUCOSE METER 93 mg/dL 70-110 : TESTED A T [facility] 6720 (BEAKER) (test code = [facility], 153) 225[address]: Patternmaker Plaster/Techni smiley ID = [id number] for Teresa Camejo POCT-GLUCOSE [id number] 17:35:54 Test Item Value Reference Range Interpretation Comments POC-GLUCOSE METER 108 mg/dL 70-110 : TESTED A T [facility] 6720 (BEAKER) (test code = [facility], 1538) 857[address]: Patternmaker Plaster/Techni smiley ID = [id number] for Donna Rlole BLOOD [id number] 17:01:46 Test Item Value Reference Range Interpretation Comments CULTURE (BEAKER) (test No growth in 5 days code = 1095) The specimen volume collected for this blood culture was below the optimum (10 mL per bottle or 20 mL total). Use of lower volumes may adversely affect recovery and/or detection times of some organisms.POCT-GLUCOSE [id number] 13:41:35 Test Item Value Reference Range Interpretation Comments POC-GLUCOSE METER 99 mg/dL 70-110 : TESTED A T [facility] 6720 (BEAKER) (test code = [facility], 153) 279[address]: Patternmaker Plaster/Techni smiley ID = [id number] for Jean Marie posada, Donna BLOOD [id number] 13:01:43 Test Item Value Reference Range Interpretation Comments CULTURE (BEAKER) (test No growth in 5 days code = 1095) POCT-GLUCOSE [id number] 07:21:17 Test Item Value Reference Range Interpretation Comments POC-GLUCOSE METER 110 mg/dL 70-110 : TESTED A T [facility] 6720 (BEAKER) (test code = [place], 1538) [address]: Patternmaker Plaster/Techni smiley ID = [id number] for Teresa Rose BASIC METABOLIC [id number] 05:31:26 Test Item Value Reference Range Interpretation [...] not appl icable for dialysis patien ts Patternmaker Plaster ID - [id number] 05:31:26 Test Item Value Reference Range Interpretation Comments MAGNESIUM (BEAKER) (test code = 2.0 mg/dL 1.6-2.6 627) Patternmaker Plaster ID - [id number] 05:31:26 Test Item Value Reference Range Interpretation Comments PHOSPHORUS (BEAKER) (test code = 3.6 mg/dL 2.3-4.7 604) Patternmaker Plaster ID - MARCOCBC W/PLT COUNT & AUTO [id number] 04:56:52 Test Item Value Reference Range Interpretation [...] PERCENT (BEAKER) (test code = 2801) POCT-GLUCOSE [id number] 00:26:59 Test Item Value Reference Range Interpretation Comments POC-GLUCOSE METER 135 mg/dL 70-110 H : TESTED A T [facility] 6720 (BEAKER) (test code = [facility], 153) 6[address]: Patternmaker Plaster/Techni smiley ID = [id number] for Teresa Rose POCT-GLUCOSE [id number] 17:22:27 Test Item Value Reference Range Interpretation Comments POC-GLUCOSE METER 127 mg/dL 70-110 H : TESTED A T [facility] 6720 (BEAKER) (test code = [facility], 1538) 319[address]: Patternmaker Plaster/Techni smiley ID = [id number] for Um eh, Akumbu POCT-GLUCOSE [id number] 17:20:21 Test Item Value Reference Range Interpretation Comments POC-GLUCOSE METER 23 mg/dL 70-110 LL : TESTED A T [facility] 6720 (BEAKER) (test code = [facility], 1538) 58695: Patternmaker Plaster/Techni smiley ID = [id number] for Umeh , Akumbu POCT-GLUCOSE [id number] 12:34:42 Test Item Value Reference Range Interpretation Comments POC-GLUCOSE METER 129 mg/dL 70-110 H : TESTED A T [facility] 6720 (BEAKER) (test code = [facility], 153) 97184: Patternmaker Plaster/Techni smiley ID = [id number] for Um eh, [place]umbu [id number] 08:08:41 Test Item Value Reference Range Interpretation Comments MAGNESIUM (BEAKER) (test code = 1.9 mg/dL 1.6-2.6 627) Patternmaker Plaster ID - [id number] 08:08:41 Test Item Value Reference Range Interpretation Comments PHOSPHORUS (BEAKER) (test code = 3.5 mg/dL 2.3-4.7 604) Patternmaker Plaster ID - ADMINBASIC METABOLIC [id number] 08:08:40 Test Item Value Reference Range Interpretation [...] not appl icable for dialysis patien ts Patternmaker Plaster ID - ADMINPOCT-GLUCOSE [id number] 07:08:26 Test Item Value Reference Range Interpretation Comments POC-GLUCOSE METER 119 mg/dL 70-110 H : TESTED A T [facility] 6720 (BEAKER) (test code = AVINASH [place] [facility], 1538) 00756: Patternmaker Plaster/Techni smiley ID = [id number] for Teresa Rose CBC W/PLT COUNT & AUTO [id number] 06:25:01 Test Item Value Reference Range Interpretation [...] PERCENT (BEAKER) (test code = 2801) POCT-GLUCOSE [id number] 23:32:08 Test Item Value Reference Range Interpretation Comments POC-GLUCOSE METER 97 mg/dL 70-110 : TESTED A T [facility] 6720 (BEAKER) (test code = [place], 1538) [address]: Patternmaker Plaster/Techni smiley ID = [id number] for Teresa Camejo POCT-GLUCOSE [id number] 17:52:25 Test Item Value Reference Range Interpretation Comments POC-GLUCOSE METER 121 mg/dL 70-110 H : TESTED A T [facility] 6720 (BEAKER) (test code = [facility], 1538) 11835: Patternmaker Plaster/Techni smiley ID = [id number] for An Donna lucas POCT-GLUCOSE [id number] 12:24:17 Test Item Value Reference Range Interpretation Comments POC-GLUCOSE METER 106 mg/dL 70-110 : TESTED A T [facility] 6720 (BEAKER) (test code = [facility], 1538) 59698: Patternmaker Plaster/Techni smiley ID = [id number] for An Donna lucas VANCOMYCIN LEVEL, [id number] 10:00:44 Test Item Value Reference Range Interpretation Comments VANCOMYCIN TROUGH (BEAKER) (test 35.0 ug/mL 10.0-20.0 HH code = 522) Patternmaker Plaster ID - ADMINPOCT-GLUCOSE [id number] 06:04:34 Test Item Value Reference Range Interpretation Comments POC-GLUCOSE METER 98 mg/dL 70-110 : TESTED A T [facility] 6720 (BEAKER) (test code = [facility], 1538) 02497: Patternmaker Plaster/Techni smiley ID = [id number] for Andi Warren [id number] 04:34:22 Test Item Value Reference Range Interpretation Comments PHOSPHORUS (BEAKER) (test code = 4.3 mg/dL 2.3-4.7 604) Patternmaker Plaster ID - mmBASIC METABOLIC [id number] 04:34:21 Test Item Value Reference Range Interpretation [...] not appl icable for dialysis patien ts Patternmaker Plaster ID - [id number] 04:34:21 Test Item Value Reference Range Interpretation Comments MAGNESIUM (BEAKER) (test code = 2.0 mg/dL 1.6-2.6 627) Patternmaker Plaster ID - mmCBC W/PLT COUNT & AUTO [id number] 04:15:17 Test Item Value Reference Range Interpretation [...] PERCENT (BEAKER) (test code = 2801) POCT-GLUCOSE [id number] 00:10:22 Test Item Value Reference Range Interpretation Comments POC-GLUCOSE METER 102 mg/dL 70-110 : TESTED A T [facility] 6720 (BEAKER) (test code [facility], = 1538) 77[address]: Patternmaker Plaster/Techni smiley ID = [id number] for Andi Warren BASIC METABOLIC [id number] 19:00:42 Test Item Value Reference Range Interpretation [...] not appl icable for dialysis patien ts Patternmaker Plaster ID - JSPOCT-GLUCOSE [id number] 17:28:38 Test Item Value Reference Range Interpretation Comments POC-GLUCOSE METER 122 mg/dL 70-110 H : TESTED A T [facility] 6720 (BEAKER) (test code = [facility], 1538) 57174: Patternmaker Plaster/Techni smiley ID = [id number] for An Donna lucas POCT-GLUCOSE [id number] 12:36:44 Test Item Value Reference Range Interpretation Comments POC-GLUCOSE METER 110 mg/dL 70-110 : TESTED A T [facility] 6720 (BEAKER) (test code = [facility], 1538) 35396: Patternmaker Plaster/Techni smiley ID = [id number] for An Donna lucas [id number] 06:20:37 Test Item Value Reference Range Interpretation Comments MAGNESIUM (BEAKER) (test code = 2.2 mg/dL 1.6-2.6 627) Patternmaker Plaster ID - [id number] 06:20:37 Test Item Value Reference Range Interpretation Comments PHOSPHORUS (BEAKER) (test code = 3.9 mg/dL 2.3-4.7 604) Patternmaker Plaster ID - ADMINBASIC METABOLIC [id number] 06:20:36 Test Item Value Reference Range Interpretation [...] not appl icable for dialysis patien ts Patternmaker Plaster ID - ADMINPOCT-GLUCOSE [id number] 06:09:53 Test Item Value Reference Range Interpretation Comments POC-GLUCOSE METER 69 mg/dL 70-110 L : TESTED A T [facility] 6720 (BEAKER) (test code = AVINASH Dunn [facility], 1538) 31990: Patternmaker Plaster/Techni smiley ID = [id number] for Andi Warren CBC W/PLT COUNT & AUTO [id number] 05:15:05 Test Item Value Reference Range Interpretation [...] code = 2801) XR ABDOMEN/KUB 1 VIEW [id number] 21:59:[address] [facility] 1975 Sex: FEXAM/TECHNIQUE: XR ABDOMEN/KUB 1 VIEW PORTABLEINDICATION: Confirm corpak placementCOMPARISON: 11/05/2022.FINDINGS: Feeding tube terminates in the distal stomach. No dilated loops of largesmall bowel. No acute osseous process. Lung bases are clear.IMPRESSION:Feeding tube terminates in the distal stomach.Electronically Signed By: Carlos Preciado11/07/2022 22:01 CDTWorkstation Name: [id number] METABOLIC [id number] 18:29:04 Test Item Value Reference Range Interpretation [...] not appl icable for dialysis patien ts Patternmaker Plaster ID - BSDRUG SCREEN, URINE, [id number] 08:47:31 Test Item Value Reference Range Interpretation Comments SCAN RESULT (test see scanned report See scanned report. code = 1149112) see scanned reportPOCT-GLUCOSE [id number] 06:13:13 Test Item Value Reference Range Interpretation Comments POC-GLUCOSE METER 81 mg/dL 70-110 : TESTED A T [facility] 6720 (BEAKER) (test code = AVINASH Dunn [facility], 1538) 595[address]: Patternmaker Plaster/Techni smiley ID = [id number] for Jessica Rodrigues [id number] 04:03:55 Test Item Value Reference Range Interpretation Comments PHOSPHORUS (BEAKER) (test code = 4.8 mg/dL 2.3-4.7 H 604) Patternmaker Plaster ID - EMBASIC METABOLIC [id number] 04:03:54 Test Item Value Reference Range Interpretation [...] not appl icable for dialysis patien ts Patternmaker Plaster ID - [id number] 04:03:54 Test Item Value Reference Range Interpretation Comments MAGNESIUM (BEAKER) (test code = 2.4 mg/dL 1.6-2.6 627) Patternmaker Plaster ID - EMHIGH SENSITIVITY TROPONIN [id number] 03:58:57 Test Item Value Reference Range Interpretation Comments HIGH SENSITIVITY 165 pg/ml See_Comment H [Automated message] TROPONIN I (test code The sy stem which = [id number]) generated this result transmitted ref erence range: <=17. Th e reference range was not used to int erpret this result as normal/abnormal . Patternmaker Plaster ID - EMThe [place] STAT High Sensitivity Troponin-I results should be used in conjunctionwith other diagnostic information such as ECG, clinical observations and information, and patient symptoms to aid in the diagnosis of [place].CBC W/PLT COUNT & AUTO [id number] 03:38:52 Test Item Value Reference Range Interpretation [...] PERCENT (BEAKER) (test code = 2801) POCT-GLUCOSE [id number] 00:25:14 Test Item Value Reference Range Interpretation Comments POC-GLUCOSE METER 88 mg/dL 70-110 : TESTED A T [facility] 6720 (BEAKER) (test code = AVINASH Dunn [facility], 1538) 84118: Patternmaker Plaster/Techni smiley ID = [id number] for Jessica Rodrigues HIGH SENSITIVITY TROPONIN [id number] 22:04:24 Test Item Value Reference Range Interpretation Comments HIGH SENSITIVITY 193 pg/ml See_Comment H [Automated message] TROPONIN I (test code The sy stem which = [id number]) generated this result transmitted ref erence range: <=17. Th e reference range was not used to int erpret this result as normal/abnormal . Patternmaker Plaster ID - DBThe [place] STAT High Sensitivity Troponin-I results should be used in conjunctionwith other diagnostic information such as ECG, clinical observations and information, and patient symptoms to aid in the diagnosis of [place].URINALYSIS W/ REFLEX URINE [id number] 15:49:18 Test Item Value Reference Range Interpretation [...] /LPF 514) SOURCE(BEAKER) (test code = 2795) Patternmaker Plaster ID - [auto]Patternmaker Plaster ID - [id number] 15:35:00 Test Item Value Reference Range Interpretation [...] patients with mechanical heart valves.HIGH SENSITIVITY TROPONIN [id number] 15:30:15 Test Item Value Reference Range Interpretation Comments HIGH SENSITIVITY 264 pg/ml See_Comment H [Automated message] TROPONIN I (test code The sy stem which = [id number]) generated this result transmitted ref erence range: <=17. Th e reference range was not used to int erpret this result as normal/abnormal . Patternmaker Plaster ID - ADMINThe [place] STAT High Sensitivity Troponin-I results should be used in conjunction with other diagnostic information such as ECG, clinical observations and information, and patientsymptoms to aid in the diagnosis of [place]. BLOOD GAS, [id number] 15:09:57 Test Item Value Reference Range Interpretation [...] 36.0 XR CHEST 1 VIEW PORTABLE / [id number] 13:38:36 [facility] Irineo : 1975 Sex: FChest, 1 view, 11/06/2022 11:58 AM.History: r/o aspiration pneumonia.Comparison: 10/30/2022.Discussion: Thecardiac silhouette is prominent but stable. Lungs areclear. There is no pneumothorax. Feeding tube terminates below thehemidiaphragm. Right IJ central line is no longer present. There are noacute osseous findings.IMPRESSION:No acute pulmonary findings.Electronically Signed By: Sage Caruso11/06/2022 13:40 CDTWorkstation Name: [id number] 2022-11-06 11:32:33 Test Item Value Reference Range Interpretation Comments PROCALCITONIN (BEAKER) (test code 0.31 ng/mL <0.05 H = 3036) SEPSIS RISK (ng/mL)Low: 0.05-0.50Intermediate: 0.51-2.00High: >=2.01HIGH SENSITIVITY TROPONIN [id number] 11:27:53 Test Item Value Reference Range Interpretation Comments HIGH SENSITIVITY 344 pg/ml See_Comment H [Automated message] TROPONIN I (test code The sy stem which = [id number]) generated this result transmitted ref erence range: <=17. Th e reference range was not used to int erpret this result as normal/abnormal . Patternmaker Plaster ID Gisele STEEL WThe [place] STAT High Sensitivity Troponin-I results should be used in conjunction with other diagnostic information such as ECG, clinical observations and information, and patient symptoms to aid in the diagnosis of [place].LACTIC ACID, [id number] 11:07:17 Test Item Value Reference Range Interpretation Comments LACTATE BLOOD VENOUS (2) (BEAKER) 0.80 mmol/L 0.50-2.00 (test code = 2872) Patternmaker Plaster ID - DAMIÁN WCT BRAIN WITHOUT IV [id number] 10:59:53 [facility] : 1975 Sex: F ADDENDUM [...] Signed By: Alexandra Liang11/06/2022 11:01 CDTWorkstation Name: [id number] 10:57:58 Test Item Value Reference Range Interpretation Comments POC-HEMATOCRIT 34 % 36-45 L : Patternmaker Plaster/Te chnician ID = (WESLEY) (test code = 648867 for RACEPAULAVega, 1856) SAMY [id number]-[id number] 10:57:58 Test Item Value Reference Range Interpretation Comments POC-GLUCOSE (NERISBITA) 117 mg/dL 70-110 H : TESTE D AT [facility] 6720 (test code = 1855) [place], [address]: Patternmaker Plaster/Techni smiley ID = [id number] for SAMY DAVIS [id number]-[id number] 10:57:57 Test Item Value Reference Range Interpretation Comments POC-POTASSIUM 5.5 meq/L 3.6-5.5 : TESTED AT [facility] 6720 (BEAKER) (test code [facility], = 1540) [address]: Patternmaker Plaster/Techni smiley ID = [id number] for SAMY DAVIS [id number]-[id number] 10:57:57 Test Item Value Reference Range Interpretation Comments POC-HEMOGLOBIN 11.6 g/dL 12.0-15.0 L : TESTED AT [facility] 6720 (BEAKER) (test code [facility], = 1856) [address]: Patternmaker Plaster/Techni smiley ID = [id number] for SAMY DAVIS [id number] 10:57:52 Test Item Value Reference Range Interpretation Comments POC-SODIUM (BEAKER) 142 meq/L 135-148 : TESTED AT [place] [address] (test code = 1542) [facility], [address]: Patternmaker Plaster/Techni msiley ID = [id number] for SAMY DAVIS POCT-BLOOD GASES, [id number] 10:57:51 Test Item Value Reference Range Interpretation [...] 7.0 meq/L -2.0-3.0 H : TESTED AT [place] [address] ARTERIAL-POC [facility], (BEAKER) (test code [address]: = 1841) Patternmaker Plaster/Techni smiley ID = [id number] for SAMY DAVIS POCT-GLUCOSE [id number] 10:21:20 Test Item Value Reference Range Interpretation Comments POC-GLUCOSE METER 117 mg/dL 70-110 H : TESTED A T [facility] 6720 (BEAKER) (test code = [facility] Mona [facility], 1538) [address]: Patternmaker Plaster/Techni smiley ID = [id number] for MANDA ESPARZA POCT-GLUCOSE [id number] 05:45:28 Test Item Value Reference Range Interpretation Comments POC-GLUCOSE METER 116 mg/dL 70-110 H : TESTED A T [facility] 6720 (BEAKER) (test code = [facility], 1538) [address]: Patternmaker Plaster/Techni smiley ID = [id number] for Teresa Rose BASIC METABOLIC [id number] 05:42:31 Test Item Value Reference Range Interpretation [...] not appl icable for dialysis patien ts Patternmaker Plaster ID - [id number] 05:40:46 Test Item Value Reference Range Interpretation Comments MAGNESIUM (BEAKER) (test code = 2.9 mg/dL 1.6-2.6 H 627) Patternmaker Plaster ID - [id number] 05:40:46 Test Item Value Reference Range Interpretation Comments PHOSPHORUS (BEAKER) (test code = 6.5 mg/dL 2.3-4.7 H 604) Patternmaker Plaster ID - ADMINCBC W/PLT COUNT & AUTO [id number] 05:38:35 Test Item Value Reference Range Interpretation [...] PERCENT (BEAKER) (test code = 2801) POCT-GLUCOSE [id number] 23:35:25 Test Item Value Reference Range Interpretation Comments POC-GLUCOSE METER 135 mg/dL 70-110 H : TESTED A T [facility] 6720 (BEAKER) (test code = [facility], 1538) [address]: Patternmaker Plaster/Techni smiley ID = [id number] for Teresa Rose POCT-GLUCOSE [id number] 17:28:48 Test Item Value Reference Range Interpretation Comments POC-GLUCOSE METER 101 mg/dL 70-110 : TESTED A T [facility] 6720 (BEAKER) (test code = [facility], 1538) [address]: Patternmaker Plaster/Techni smiley ID = [id number] for CIRA HUMPHREY BLOOD [id number] 17:00:30 Test Item Value Reference Range Interpretation Comments CULTURE (BEAKER) (test No growth in 5 days code = 1095) BLOOD [id number] 17:00:30 Test Item Value Reference Range Interpretation Comments CULTURE (BEAKER) (test No growth in 5 days code = 1095) XR ABDOMEN/KUB 1 VIEW [id number] 14:17:07 [facility] : 1975 Sex: FXR ABDOMEN/KUB 1 VIEW PORTABLETECHNIQUE: Supine radiograph(s) of the abdomen and pelvis.HISTORY: corpak placementCOMPARISON: 12/04/2022IMPRESSION:Lines and tubes: Enteric tube is seen with tip in the stomachElectronically Signed By: Sarah Carrera11/05/2022 14:19 CDTWorkstation Name: [id number] 12:53:33 Test Item Value Reference Range Interpretation Comments POC-GLUCOSE METER 88 mg/dL 70-110 : TESTED A T [facility] 6720 (BEAKER) (test code = [facility], 1538) [address]: Patternmaker Plaster/Techni smiley ID = [id number] for CIRA ROLAND POCT-GLUCOSE [id number] 06:25:50 Test Item Value Reference Range Interpretation Comments POC-GLUCOSE METER 110 mg/dL 70-110 : TESTED A T [facility] 6720 (BEAKER) (test code = [facility], 1538) 23846: Patternmaker Plaster/Techni smiley ID = [id number] for NADEGE IVEY BASIC METABOLIC [id number] 04:16:53 Test Item Value Reference Range Interpretation [...] not as accur ate as Creatinine María Elnea pittman in predicting glom erular filtration rate . Estimated GFR is not appl icable for dialysis patien ts Patternmaker Plaster ID - DAMIÁN [id number] 04:16:53 Test Item Value Reference Range Interpretation Comments MAGNESIUM (BEAKER) (test code = 2.8 mg/dL 1.6-2.6 H 627) Patternmaker Plaster ID - DAMIÁN [id number] 04:16:53 Test Item Value Reference Range Interpretation Comments PHOSPHORUS (BEAKER) (test code = 5.7 mg/dL 2.3-4.7 H 604) Patternmaker Plaster ID - DAMIÁN WCBC W/PLT COUNT & AUTO [id number] 03:44:05 Test Item Value Reference Range Interpretation [...] PERCENT (BEAKER) (test code = 2801) POCT-GLUCOSE [id number] 23:25:33 Test Item Value Reference Range Interpretation Comments POC-GLUCOSE METER 114 mg/dL 70-110 H : TESTED A T [facility] 6720 (BEAKER) (test code = [facility] Zhilian Zhaopin [facility], 153) 60208: Patternmaker Plaster/Techni smiley ID = [id number] for NADEGE IVEY [id number] 18:58:11 Test Item Value Reference Range Interpretation Comments SODIUM (BEAKER) (test code = 381) 142 meq/L 136-145 Patternmaker Plaster ID - JSPOCT-GLUCOSE [id number] 17:04:52 Test Item Value Reference Range Interpretation Comments POC-GLUCOSE METER 142 mg/dL 70-110 H : TESTED A T [facility] 6720 (BEAKER) (test code = [facility] Zhilian Zhaopin [facility], 153) 17365: Patternmaker Plaster/Techni smiley ID = [id number] for MANDA ESPARZA POCT-GLUCOSE [id number] 12:43:34 Test Item Value Reference Range Interpretation Comments POC-GLUCOSE METER 127 mg/dL 70-110 H : TESTED A T [facility] 6720 (BEAKER) (test code = AVINASH Dunn [facility], 1538) 14488: Patternmaker Plaster/Techni smiley ID = [id number] for MANDA ESPARZA [id number] 12:42:31 Test Item Value Reference Range Interpretation Comments SODIUM (BEAKER) (test code = 381) 141 meq/L 136-145 Patternmaker Plaster ID - JSPOCT-GLUCOSE [id number] 05:53:11 Test Item Value Reference Range Interpretation Comments POC-GLUCOSE METER 122 mg/dL 70-110 H : TESTED A T [facility] 6720 (BEAKER) (test code = [facility] Mona [facility], 1538) 41272: Patternmaker Plaster/Techni smiley ID = [id number] for NADEGE IVEY [id number] 04:57:58 Test Item Value Reference Range Interpretation Comments PHOSPHORUS (BEAKER) 6.1 mg/dL 2.3-4.7 H Specimen slightly (test code = 604) hemolyzed Patternmaker Plaster ID - DAMIÁN WBASIC METABOLIC [id number] 04:57:58 Test Item Value Reference Range Interpretation [...] not appl icable for dialysis patien ts Patternmaker Plaster ID Gisele STEEL [id number] 04:57:57 Test Item Value Reference Range Interpretation Comments MAGNESIUM (BEAKER) 2.7 mg/dL 1.6-2.6 H Specimen slightly (test code = 627) hemolyzed Patternmaker Plaster KURT [employer] WCBC W/PLT COUNT & AUTO [id number] 04:36:11 Test Item Value Reference Range Interpretation [...] PERCENT (BEAKER) (test code = 2801) POCT-GLUCOSE [id number] 00:26:17 Test Item Value Reference Range Interpretation Comments POC-GLUCOSE METER 117 mg/dL 70-110 H : TESTED A T [facility] 6720 (BEAKER) (test code = [facility], 153) 25348: Patternmaker Plaster/Techni smiley ID = [id number] for NADEGE IVEY [id number] 19:29:04 Test Item Value Reference Range Interpretation Comments SODIUM (BEAKER) (test code = 381) 141 meq/L 136-145 Patternmaker Plaster ID - ADMINPOCT-GLUCOSE [id number] 16:58:24 Test Item Value Reference Range Interpretation Comments POC-GLUCOSE METER 142 mg/dL 70-110 H : TESTED A T [facility] 6720 (BEAKER) (test code = [facility], 153) 39612: Patternmaker Plaster/Techni smiley ID = [id number] for MANDA ESPARZA XR ABDOMEN/KUB 1 VIEW [id number] 13:01:43 [facility] 1975 Sex: FAbdomen , one viewHistory:Feeding tube placementComparison:10/30/2022Findings:Tip of the feeding tube is near the pylorus. Nonobstructive bowel gaspattern. Cholecystectomy clips within the right upper quadrant.Electronically Signed By: Kam Vigil MD11/03/2022 13:03 CDTWorkstation Name: [id number] 12:39:24 Test Item Value Reference Range Interpretation Comments SODIUM (BEAKER) (test code = 381) 142 meq/L 136-145 POCT-GLUCOSE [id number] 12:05:03 Test Item Value Reference Range Interpretation Comments POC-GLUCOSE METER 118 mg/dL 70-110 H : TESTED A T [facility] 6720 (BEAKER) (test code = AVINASH [place], 1538) 35438: Patternmaker Plaster/Techni smiley ID = [id number] for MANDA ESPARZA [id number] 06:17:11 Test Item Value Reference Range Interpretation Comments PHOSPHORUS (BEAKER) (test code = 4.1 mg/dL 2.3-4.7 604) Patternmaker Plaster ID - DAMIÁN WBASIC METABOLIC [id number] 06:17:10 Test Item Value Reference Range Interpretation [...] not appl icable for dialysis patien ts Patternmaker Plaster ID - DAMIÁN [id number] 06:17:10 Test Item Value Reference Range Interpretation Comments MAGNESIUM (BEAKER) (test code = 2.4 mg/dL 1.6-2.6 627) Patternmaker Plaster ID - DAMIÁN WPOCT-GLUCOSE [id number] 05:50:21 Test Item Value Reference Range Interpretation Comments POC-GLUCOSE METER 121 mg/dL 70-110 H : TESTED A T [facility] 6720 (BEAKER) (test code = AVINASH Dunn [facility], 1538) 41715: Patternmaker Plaster/Techni smiley ID = [id number] for NADEGE IVEY CBC W/PLT COUNT & AUTO [id number] 05:25:22 Test Item Value Reference Range Interpretation [...] PERCENT (BEAKER) (test code = 2801) POCT-GLUCOSE [id number] 23:36:51 Test Item Value Reference Range Interpretation Comments POC-GLUCOSE METER 116 mg/dL 70-110 H : TESTED A T [facility] 6720 (BEAKER) (test code = [facility] [place], 1538) 92488: Patternmaker Plaster/Techni smiley ID = [id number] for NADEGE IVEY [id number] 18:30:49 Test Item Value Reference Range Interpretation Comments SODIUM (BEAKER) (test code = 381) 141 meq/L 136-145 Patternmaker Plaster ID - ADMINPOCT-GLUCOSE [id number] 17:57:14 Test Item Value Reference Range Interpretation Comments POC-GLUCOSE METER 118 mg/dL 70-110 H : TESTED A T [facility] 6720 (BEAKER) (test code = AVINASH Dunn [place], 1538) 74236: Patternmaker Plaster/Techni smiley ID = [id number] for An Donna lucas MRSA [id number] 14:39:15 Test Item Value Reference Range Interpretation Comments CULTURE (BEAKER) (test code No MRSA isolated = 1095) [id number] 13:35:39 Test Item Value Reference Range Interpretation Comments SODIUM (BEAKER) (test code = 381) 139 meq/L 136-145 Patternmaker Plaster ID - BVPOCT-GLUCOSE [id number] 13:06:41 Test Item Value Reference Range Interpretation Comments POC-GLUCOSE METER 134 mg/dL 70-110 H : TESTED A T [facility] 6720 (BEAKER) (test code = AVINASH Dunn [facility], 1538) 68888: Patternmaker Plaster/Techni smiley ID = [id number] for An Donna lucas CT BRAIN WITHOUT IV [id number] 13:00:59 [facility] : 1975 Sex: FCT BRAIN [...] Signed By: Alexandra Liang11/02/2022 13:03 CDTWorkstation Name: [id number] 06:29:29 Test Item Value Reference Range Interpretation Comments SODIUM (BEAKER) (test code = 381) 139 meq/L 136-145 BASIC METABOLIC [id number] 06:29:28 Test Item Value Reference Range Interpretation [...] not appl icable for dialysis patien ts Patternmaker Plaster ID - [id number] 06:29:28 Test Item Value Reference Range Interpretation Comments MAGNESIUM (BEAKER) (test code = 2.2 mg/dL 1.6-2.6 627) Patternmaker Plaster ID - [id number] 06:29:28 Test Item Value Reference Range Interpretation Comments PHOSPHORUS (BEAKER) (test code = 3.8 mg/dL 2.3-4.7 604) Patternmaker Plaster ID - MARCOPOCT-GLUCOSE [id number] 06:21:55 Test Item Value Reference Range Interpretation Comments POC-GLUCOSE METER 125 mg/dL 70-110 H : TESTED A T [facility] 6720 (BEAKER) (test code = [facility] [place], 1538) 61037: Patternmaker Plaster/Techni smiley ID = [id number] for JODI IVANJOSE TANYAOscar CBC W/PLT COUNT & AUTO [id number] 06:08:00 Test Item Value Reference Range Interpretation [...] PERCENT (BEAKER) (test code = 2801) POCT-GLUCOSE [id number] 00:19:06 Test Item Value Reference Range Interpretation Comments POC-GLUCOSE METER 99 mg/dL 70-110 : TESTED A T [facility] 6720 (BEAKER) (test code = [facility] Mona [facility], 1538) 74135: Patternmaker Plaster/Techni smiley ID = [id number] for NADEGE MORALES [id number] 18:45:56 Test Item Value Reference Range Interpretation Comments SODIUM (BEAKER) (test code = 381) 140 meq/L 136-145 Patternmaker Plaster ID - ADMPOCT-GLUCOSE [id number] 18:39:21 Test Item Value Reference Range Interpretation Comments POC-GLUCOSE METER 121 mg/dL 70-110 H : TESTED A T [facility] 6720 (BEAKER) (test code [facility], = 1538) 50668: Patternmaker Plaster/Techni smiley ID = [id number] for Latonia Connolly [id number] 14:24:36 Test Item Value Reference Range Interpretation Comments SODIUM (BEAKER) (test code = 381) 140 meq/L 136-145 Patternmaker Plaster ID - [id number] 10:06:02 Test Item Value Reference Range Interpretation Comments POTASSIUM (BEAKER) (test code = 3.8 meq/L 3.5-5.1 379) Patternmaker Plaster ID - [id number] 10:06:01 Test Item Value Reference Range Interpretation Comments MAGNESIUM (BEAKER) (test code = 2.3 mg/dL 1.6-2.6 627) Patternmaker Plaster ID - ADMVANCOMYCIN LEVEL, [id number] 09:59:39 Test Item Value Reference Range Interpretation Comments VANCOMYCIN TROUGH (BEAKER) (test 8.4 ug/mL 10.0-20.0 L code = 522) Patternmaker Plaster ID - [id number] 04:21:26 Test Item Value Reference Range Interpretation Comments MAGNESIUM (BEAKER) (test code = 2.0 mg/dL 1.6-2.6 627) Patternmaker Plaster ID - [id number] 04:21:26 Test Item Value Reference Range Interpretation Comments PHOSPHORUS (BEAKER) (test code = 3.2 mg/dL 2.3-4.7 604) Patternmaker Plaster ID - ADMINBASIC METABOLIC [id number] 04:21:25 Test Item Value Reference Range Interpretation [...] not appl icable for dialysis patien ts Patternmaker Plaster ID - ADMINCBC W/PLT COUNT & AUTO [id number] 03:36:42 Test Item Value Reference Range Interpretation [...] 0.00-1.00 PERCENT (BEAKER) (test code = 2801) [id number] 00:11:29 Test Item Value Reference Range Interpretation Comments SODIUM (BEAKER) (test code = 381) 139 meq/L 136-145 Patternmaker Plaster ID - [id number] 18:25:44 Test Item Value Reference Range Interpretation Comments SODIUM (BEAKER) (test code = 381) 139 meq/L 136-145 Patternmaker Plaster ID - esauSARS-COV2/INFLUENZA/RSV [id number] 14:03:24 Test Item Value Reference Range Interpretation Comments SARS-COV2/RT-PCR Negative Negative The SARS-Co V-2 target (test code = nucleic acids a re not ) detected in thi s specimen. Negat yesika [...] individuals amanda pected of COVID-19 by the [facility] ider. INFLUENZA A RT-PCR Negative Negative The Flu A target nucleic (test code = acids are not d etected in 19100421) this specimen. INFLUENZA B RT-PCR Negative Negative The Flu B target nucleic (test code = acids are not d etected in 19100422) this specimen. RSV RT-PCR (test Negative Negative The RSV tar get nucleic code = 6606520) acids are no t detected in this [...] of the Act.Fact Sheet for Healthcare Providers:https ://www.[employer]/Documents/Xpert%20Xpress%20SARS%20CoV-2/Fact%20Sheets/302-390 2%01NOJZ-QAE-5%20HEALTHCARE%20PROVIDERS%20FACT%20SHEET.pdfFact Sheet for Healthcare Patients:https://www.[employer]/Docum ents/Xpert%20Xpress%20SARS%20Cov-2/Fact%20Sheets/302-3801%45ZKCW-VFN-1%20PATIENT %20FACT%20SHEET.zejUFPAQT0554-82-80 12:52:25 Test Item Value Reference Range Interpretation Comments SODIUM (BEAKER) (test code = 381) 135 meq/L 136-145 L Patternmaker Plaster ID - [id number] 12:52:24 Test Item Value Reference Range Interpretation Comments MAGNESIUM (BEAKER) (test code = 2.4 mg/dL 1.6-2.6 627) Patternmaker Plaster ID - esauPOCT-GLUCOSE [id number] 12:00:51 Test Item Value Reference Range Interpretation Comments POC-GLUCOSE METER 130 mg/dL 70-110 H : TESTED A T [facility] 6720 (BEAKER) (test code [facility], = 1538) 35798: Patternmaker Plaster/Techni smiley ID = [id number] for Latonia Connolly B-TYPE NATRIURETIC FACTOR (BNP)2022-10-31 10:43:21 Test Item Value Reference Range Interpretation Comments B-TYPE NATRIURETIC PEPTIDE (BEAKER) 568 pg/mL 0-100 H (test code = 700) Patternmaker Plaster ID - [id number] 05:07:29 Test Item Value Reference Range Interpretation Comments MAGNESIUM (BEAKER) (test code = 1.9 mg/dL 1.6-2.6 627) Patternmaker Plaster ID - [id number] 05:07:29 Test Item Value Reference Range Interpretation Comments PHOSPHORUS (BEAKER) (test code = 3.7 mg/dL 2.3-4.7 604) Patternmaker Plaster ID - ADMINBASIC METABOLIC [id number] 05:07:28 Test Item Value Reference Range Interpretation [...] not appl icable for dialysis patien ts Patternmaker Plaster ID - ADMINCBC W/PLT COUNT & AUTO [id number] 04:47:13 Test Item Value Reference Range Interpretation [...] 0.00-1.00 PERCENT (BEAKER) (test code = 2801) [id number] 23:06:40 Test Item Value Reference Range Interpretation Comments SODIUM (BEAKER) (test code = 381) 133 meq/L 136-145 L Patternmaker Plaster ID - ADMINHIGH SENSITIVITY TROPONIN [id number] 22:59:43 Test Item Value Reference Range Interpretation Comments HIGH SENSITIVITY 92 pg/ml See_Comment H [Automated message] TROPONIN I (test code = The system which [id number]) generated this result transmitted ref erence range: <=17. Th e reference range was not used to int erpret this result as normal/abnormal . Patternmaker Plaster ID - ADMINThe [place] STAT High Sensitivity Troponin-I results should be used in conjunction with other diagnostic information such as ECG, clinical observations and information, and patientsymptoms to aid in the diagnosis of [place]. XR ABDOMEN/KUB 1 VIEW [id number] 18:54:45 [facility] 1975 Sex: FTECHNIQUE: XR ABDOMEN/KUB 1 VIEW PORTABLEINDICATION: corpak placement.COMPARISON: 10/29/2022FINDINGS:Feeding tube tip projecting over the body of the stomach. No specificevidence for bowel obstruction. Cholecystectomy clips are noted. Supineradiographs are insensitive for detection of free intraperitoneal ai r.IMPRESSION:Feeding tube tip projects over the body of the stomach.Electronically Signed By: Mo Soares10/30/2022 18:56 CDTWorkstation Name: [id number] SENSITIVITY TROPONIN [id number] 17:30:01 Test Item Value Reference Range Interpretation Comments HIGH SENSITIVITY 123 pg/ml See_Comment H [Automated message] TROPONIN I (test code The sy stem which = [id number]) generated this result transmitted ref erence range: <=17. Th e reference range was not used to int erpret this result as normal/abnormal . Patternmaker Plaster ID - BSThe [place] STAT High Sensitivity Troponin-I results should be used in conjunctionwith other diagnostic information such as ECG, clinical observations and information, and patient symptoms to aid in the diagnosis of [place].LACTIC ACID, [id number] 17:25:59 Test Item Value Reference Range Interpretation Comments LACTATE BLOOD ARTERIAL (2) 1.0 mmol/L 0.5-2.0 (BEAKER) (test code = 2874) Patternmaker Plaster ID - [id number] 17:21:36 Test Item Value Reference Range Interpretation Comments SODIUM (BEAKER) (test code = 381) 136 meq/L 136-145 Patternmaker Plaster ID - ADMINBLOOD GAS, [id number] 14:46:08 Test Item Value Reference Range Interpretation [...] FIO2 (BEAKER) (test code = 1819) 100.0 [id number] 12:47:53 Test Item Value Reference Range Interpretation Comments SODIUM (BEAKER) (test code = 381) 137 meq/L 136-145 Patternmaker Plaster ID - JSLACTIC ACID, [id number] 12:47:37 Test Item Value Reference Range Interpretation Comments LACTATE BLOOD 2.3 mmol/L 0.5-2.0 H Specimen sligh tly ARTERIAL (2) (BEAKER) hemoly zed (test code = 2874) Patternmaker Plaster ID - JSBLOOD GAS, [id number] 12:23:19 Test Item Value Reference Range Interpretation [...] FIO2 (BEAKER) (test code = 1819) 100.0 [id number] 11:15:25 Test Item Value Reference Range Interpretation Comments PROCALCITONIN (BEAKER) (test code 0.05 ng/mL <0.05 H = 3036) SEPSIS RISK (ng/mL)Low: 0.05-0.50Intermediate: 0.51-2.00High: >=2.01HIGH SENSITIVITY TROPONIN [id number] 11:10:59 Test Item Value Reference Range Interpretation Comments HIGH SENSITIVITY 139 pg/ml See_Comment H [Automated message] TROPONIN I (test code The arvind dsouza which = [id number]) generated this result transmitted ref erence range: <=17. Th e reference range was not used to int erpret this result as normal/abnormal . Patternmaker Plaster ID - JSThe [place] [place] STAT High Sensitivity Troponin-I results should be used in conjunctionwith other diagnostic information such as ECG, clinical observations and information, and patient symptoms to aid in the diagnosis of [place].XR CHEST 1 VIEW PORTABLE / [id number] 10:47:01 [facility] : 1975 Sex: FCLINICAL HISTORY: desaturationTECHNIQUE: 1 view of the chest.COMPARISON: 10/29/2022IMPRESSION:ETT no longer seen. New feeding tube below the diaphragm. Right centralline remains in the right atrium. There are mildly increased bilaterallower lung airspace opacities with blunting of both costophrenic angles.The cardiomediastinal silhouette is magnified by technique.Electronically Signed By: Yeyo Mills10/30/2022 10:49 CDTWorkstation Name: [id number] BRAIN WITHOUT IV [id number] 09:21:03 [facility] : 1975 Sex: FCT BRAIN [...] Signed By: Luís Mclain10/30/2022 09:23 CDTWorkstation Name: [id number] 04:21:01 Test Item Value Reference Range Interpretation Comments PHOSPHORUS (BEAKER) (test code = 3.2 mg/dL 2.3-4.7 604) Patternmaker Plaster ID - EMBASIC METABOLIC [id number] 04:21:00 Test Item Value Reference Range Interpretation [...] not appl icable for dialysis patien ts Patternmaker Plaster ID - [id number] 04:21:00 Test Item Value Reference Range Interpretation Comments MAGNESIUM (BEAKER) (test code = 1.7 mg/dL 1.6-2.6 627) Patternmaker Plaster ID - EMCBC W/PLT COUNT & AUTO [id number] 03:30:03 Test Item Value Reference Range Interpretation [...] 0.00-1.00 PERCENT (BEAKER) (test code = 2801) [id number] 00:34:48 Test Item Value Reference Range Interpretation Comments SODIUM (BEAKER) (test code = 381) 137 meq/L 136-145 Patternmaker Plaster ID - ADMINXR ABDOMEN/KUB 1 VIEW [id number] 18:55:43 [facility] : 1975 Sex: FTECHNIQUE: XR [...] Signed By: Mo Soares10/29/2022 18:57 CDTWorkstation Name: [id number] 2022-10-29 18:31:20 Test Item Value Reference Range Interpretation Comments SODIUM (BEAKER) (test code = 381) 138 meq/L 136-145 Patternmaker Plaster ID - ADMINCREATININE, RANDOM [id number] 15:21:04 Test Item Value Reference Range Interpretation Comments CREATININE URINE (BEAKER) (test 24.5 mg/dL code = 375) Reference Range: No NormalsOperator ID - ADMINRAPID DRUG SCREEN, [id number] 14:06:15 Test Item Value Reference Range Interpretation [...] ng/mLOpiate 300 ng/mLMethadone 300 ng/mLAmphetamine/ 1000 ng/mL MethamphetamineThisassay provides an unconfirmed qualitative test result for the clinical management of patients in emergency situations. Chain of custody not maintained. Some azez-fpz-jfxxsdk medications, as well as adulterants, may cause inaccurate results. Clinical correlation should be applied. A more comprehensive drug screen or confirmation of a detected drug may be performed upon request.Patternmaker Plaster ID - JSOperatorID - [auto] HEMOGLOBIN [id number] 13:23:17 Test Item Value Reference Range Interpretation Comments HEMOGLOBIN A1C 4.5 % See_Comment [Automated m essage] ELECTROPHORESIS ([employer]) The system which (test code = 3811) generated this result transmitted ref erence range: <=5.6%. The reference range was not used to int erpret this result as normal/abnormal . "The A1c is measured using a NGSP-certified method. HbA1c value equal to or greater than 6.5% as thediagnosis cutoff for diabetes. An HbA1c value of 5.7- 6.4% indicates increased risk for diabetes (prediabetes)."Patternmaker Plaster ID - ADMOperator ID - ADMCTA [id number] 13:16:45 [facility] : 1975 Sex: FCT BRAIN WITHOUT IV CONTRAST, CTA CAROTID, CTA BRAINBRAIN CT WITHOUT CONTRASTINDICATION: Unlisted Reason for Exam, intraparenchymal hematomaCOMPARISON: NoneTECHNIQUE:Rapid acquisition spiral images were obtained between the aortic archand the cranial vertex during intravenous contrast infusion toreconstruct axial images and angiographic 3D maximum intensityprojections (MIP). 3-D volumetric reformatted images were created at [employer] workstation. Precontrast images of the brain were [...] Signed By: Luís Mclain10/29/2022 13:18 CDTWorkstation Name: [id number] BRAIN WITHOUT IV [id number] 13:16:45 [facility] : 1975 Sex: FCT BRAIN WITHOUT IV CONTRAST, CTA CAROTID, CTA BRAINBRAIN CT WITHOUT CONTRASTINDICATION: Unlisted Reason for Exam, intraparenchymal hematomaCOMPARISON: NoneTECHNIQUE:Rapid acquisition spiral images were obtained between the aortic archand the cranial vertex during intravenous contrast infusion toreconstruct axial images and angiographic 3D maximum intensityprojections (MIP). 3-D volumetric reformatted images were created at [employer] workstation. Precontrast images of the brain were [...] Signed By: Luís Mclain10/29/2022 13:18 CDTWorkstation Name: [id number] 13:16:45[facility] : 1975 Sex: FCT BRAIN WITHOUT IV CONTRAST, CTA CAROTID, CTA BRAINBRAIN CT WITHOUT CONTRASTINDICATION: Unlisted Reason for Exam, intraparenchymal hematomaCOMPARISON: NoneTECHNIQUE:Rapid acquisition spiral images were obtained between the aortic archand the cranial vertex during intravenous contrast infusion toreconstruct axial images and angiographic 3D maximum intensityprojections (MIP). 3-D volumetric reformatted images were created at [employer] workstation. Precontrast images of the brain were [...] Signed By: Luís Mclain10/29/2022 13:18 CDTWorkstation Name: [id number], QUANTITATIVE, [id number] 13:15:24 Test Item Value Reference Range Interpretation Comments GONADOTROPIN, CHORIONIC (HCG) QUANT < mIU/mL 0-10 (BEAKER) (test code = 649) Non- Females: <10 mIU/mL Females: Gestation Age Reference Range(mIU/mL) 0.2-1 Week 5-50 1-2 Weeks 50-500 2-3 Weeks 100-5,000 3-4 Weeks 500-10,000 4-5 Weeks 1,000-50,000 5-6 Weeks 10,000-100,000 6-8 Weeks 15,000- 200,000 2-3 Months 10,000-100,000 Patternmaker Plaster ID - MARCOOSMOLALITY, URINE 2022-10-29 13:07:55 Test Item Value Reference Range Interpretation Comments OSMOLALITY URINE 529 mOsm/kg See_Comment [Automated message] (BEAKER) (test code = The sy stem which 614) generated this result transmitted ref erence range: 50-1,200 mOsm/kg. The reference range was not used to int erpret this result as normal/abnormal . UREA NITROGEN, RANDOM [id number] 12:57:04 Test Item Value Reference Range Interpretation Comments UREA NITROGEN URINE (BEAKER) (test 186 mg/dL code = 538) Reference Range: No NormalsOperator ID - JSSODIUM, RANDOM [id number] 12:57:03 Test Item Value Reference Range Interpretation Comments SODIUM URINE (BEAKER) (test code = 155 meq/L 243) Reference Range: No NormalsOperator ID - JSOSMOLALITY, [id number] 12:52:21 Test Item Value Reference Range Interpretation Comments OSMOLALITY, SERUM (BEAKER) (test 290 mOsm/kg 275-295 code = 615) [id number] 12:52:14 Test Item Value Reference Range Interpretation Comments SODIUM (BEAKER) (test code = 381) 140 meq/L 136-145 Patternmaker Plaster ID - MARCOPREGNANCY SCREEN, [id number] 09:52:55 Test Item Value Reference Range Interpretation Comments TEST URINE (BEAKER) (test Negative Negative code = 583) BLOOD GAS, [id number] 08:02:40 Test Item Value Reference Range Interpretation [...] (BEAKER) (test code = 1819) 40.0 T4, [id number] 06:13:37 Test Item Value Reference Range Interpretation Comments FREE T4 (BEAKER) (test code = 655) 0.90 ng/dL 0.70-1.48 Patternmaker Plaster ID - ADMINTSH/FREE T4 IF [id number] 05:34:42 Test Item Value Reference Range Interpretation Comments THYROID STIMULATING HORMONE 6.331 uIU/mL 0.350-4.940 H (BEAKER) (test code = 772) Patternmaker Plaster ID - INRMGTEGTECQXT4883-02-96 05:26:57 Test Item Value Reference Range Interpretation Comments MAGNESIUM (BEAKER) (test code = 1.8 mg/dL 1.6-2.6 627) Patternmaker Plaster ID - [id number] 05:26:57 Test Item Value Reference Range Interpretation Comments PHOSPHORUS (BEAKER) (test code = 3.0 mg/dL 2.3-4.7 604) Patternmaker Plaster ID - MARCOCOMPREHENSIVE METABOLIC [id number] 05:26:56 Test Item Value Reference Range Interpretation [...] not appl icable for dialysis patien ts Patternmaker Plaster ID - MARCOXR CHEST 1 VIEW PORTABLE / [id number] 05:03:50 [facility] : 1975 Sex: FXR CHEST [...] Signed By: Jaziel Monte10/29/2022 05:05 CDTWorkstation Name: [id number] 04:56:04 Test Item Value Reference Range Interpretation Comments PARTIAL THROMBOPLASTIN TIME 30.4 seconds 22.5-36.0 (BEAKER) (test code = 760) PROTHROMBIN TIME/[id number] 04:55:22 Test Item Value Reference Range Interpretation Comments PROTIME (BEAKER) 13.6 seconds 11.9-14.2 (test code = 759) INR (BEAKER) (test 1.06 See_Comment [Automat ed message] code = 370) The system [employer]und[employer] generated this result transmitted ref erence range: <=5.90. The reference range was not used to int erpret this result as normal/abnormal . RECOMMENDED COUMADIN/WARFARIN INR THERAPY RANGESSTANDARD DOSE: 2.0 - 3.0 Includes: PROPHYLAXIS for venous thrombosis, systemic embolization; TREATMENT for venous thrombosis and/or pulmonary embolus.HIGH RISK: Target INR is 2.5-3.5 for patients with mechanical heart valves.CBC W/PLT COUNT & AUTO [id number] 04:50:18 Test Item Value Reference Range Interpretation [...] (BEAKER) (test code = 2801) BLOOD GAS, [id number] 04:03:20 Test Item Value Reference Range Interpretation [...] (BEAKER) (test code = 1819) 60.0 CALCIUM, [id number] 03:59:22 Test Item Value Reference Range Interpretation Comments CALCIUM IONIZED (BEAKER) (test 1.09 mmol/L 1.12-1.27 L code = 698) PH, BLOOD (BEAKER) (test code = 7.33 1810) Fungus culture + [id number] 08:28:10 Test Item Value Reference Range Interpretation Comments Result (test code = No fungus isolated in 6463-4) 28 days Fungus Smear (test No fungal elements seen code = 1406) [facility] [id number] 08:28:10 Test Item Value Reference Range Interpretation Comments CULTURE (BEAKER) (test No fungus isolated in code = 1095) 28 days FUNGUS SMEAR (BEAKER) No fungal elements seen (test code = 1406) [id number] 05:54:28 Test Item Value Reference Range Interpretation Comments MAGNESIUM (BEAKER) (test code = 1.9 mg/dL 1.6-2.6 627) Patternmaker Plaster ID - [id number] 05:54:28 Test Item Value Reference Range Interpretation Comments PHOSPHORUS (BEAKER) (test code = 5.2 mg/dL 2.3-4.7 H 604) Patternmaker Plaster ID - MARCOBASIC METABOLIC [id number] 05:54:27 Test Item Value Reference Range Interpretation [...] glom erular filtration rate . Estimated GFR i s not applicable for dialysis patients Patternmaker Plaster ID - MARCOCBC W/PLT COUNT & AUTO [id number] 05:42:51 Test Item Value Reference Range Interpretation [...] PERCENT (BEAKER) (test code = 2801) CALCIUM, [id number] 05:36:04 Test Item Value Reference Range Interpretation Comments CALCIUM IONIZED (BEAKER) (test 1.12 mmol/L 1.12-1.27 code = 698) PH, BLOOD (BEAKER) (test code = 7.42 1810) Anaerobic [id number] 02:03:45 Test Item Value Reference Range Interpretation Comments Result (test code = No anaerobes isolated 6463-4) [facility] [id number] 02:03:45 Test Item Value Reference Range Interpretation Comments CULTURE (BEAKER) (test No anaerobes isolated code = 1095) STD Panel - CT/GC [id number] 17:37:44 Test Item Value Reference Interpretation Comments Range C. trachomatis NOT DETECTED RNA, TMA (test code = 3034031) N. gonorrhoeae NOT DETECTED REFERENCE RA NGE: NOT RNA, TMA (test DETECTED Meth odology: code = 2218226) Transcriptio n Mediated Amplification ( TMA)to detect RNA. The analytical perf ormance characteristics of thisassay, when used to test SurePat h(TM) specimens haveb een determined by [employer]. Th e modificationsha ve not been cleared or approved by the FDA. This assayhas b een validated pursu ant to the CLIA regula tions andis used for clinical purpos es. For additional information, pl ease refer tohttps://educa tion.Excep Apps/faq /NVL666(This li nk is being provided for informational/e ducatio nal purposes on ly.) SUE (test code = Performing Lab SUE) *QDID [facility] [address] [address] Sylvie Gresham MD, PhD [facility] METABOLIC [id number] 16:40:09 Test Item Value Reference Range Interpretation [...] not appl icable for dialysis patien ts Patternmaker Plaster ID - BSOsmolality, [id number] 12:43:16 Test Item Value Reference Range Interpretation Comments Osmolality, Ur (test code 245 See_Comment [ Automated message] = 2695-5) The system [employer] generated this result transmitted ref erence range: 50-1,200 mOsm/kg mOsm/kg . The reference range was not used to int erpret this result as normal/abnormal . Lab Interpretation (test Normal code = 37394-7) [facility]OSMOLALITY, [id number] 12:43:16 Test Item Value Reference Range Interpretation Comments OSMOLALITY URINE 245 mOsm/kg See_Comment [Automated message] (BEAKER) (test code = The sy stem which 614) generated this result transmitted ref erence range: 50-1,200 mOsm/kg. The reference range was not used to int erpret this result as normal/abnormal . Sodium, random [id number] 11:48:27 Test Item Value Reference Range Interpretation Comments Sodium Urine (test 82 meq/L code = 2955-3) SUE (test code = Reference Range: No SUE) NormalsOperator ID - ADMIN [facility] HospitalU[facility] Nitrogen, random [id number] 11:48:27 Test Item Value Reference Range Interpretation Comments Urea Nitrogen, Ur 121 mg/dL (test code = 3095-7) SUE (test code = Reference Range: No SUE) NormalsOperator ID - ADMIN [facility] HospitalOD[facility] RANDOM [id number] 11:48:27 Test Item Value Reference Range Interpretation Comments SODIUM URINE (BEAKER) (test code = 82 meq/L 243) Reference Range: No NormalsOperator ID - ADMINUREA NITROGEN, RANDOM URINE 2022-08-10 11:48:27 Test Item Value Reference Range Interpretation Comments UREA NITROGEN URINE (BEAKER) (test 121 mg/dL code = 538) Reference Range: No NormalsOperator ID - ADMINCreatinine, random [id number] 11:48:26 Test Item Value Reference Range Interpretation Comments Creatinine, Ur 20.9 mg/dL (test code = 2161-8) SUE (test code = Reference Range: No SUE) NormalsOperator ID - ADMIN [facility] HospitalCREATININE, RANDOM [id number] 11:48:26 Test Item Value Reference Range Interpretation Comments CREATININE URINE (BEAKER) (test 20.9 mg/dL code = 375) Reference Range: No NormalsOperator ID - ADMINWound culture + gram stain 2022-08-10 11:24:49 Test Item Value Reference Range Interpretation Comments Result (test code = No growth 6463-4) Gram Stain Result <1+ gram positive cocci (test code = 1123) in pairs [facility] + GRAM [id number] 11:24:49 Test Item Value Reference Range Interpretation Comments CULTURE (BEAKER) (test No growth code = 1095) GRAM STAIN RESULT 4+ WBCs (BEAKER) (test code = 1123) GRAM STAIN RESULT <1+ gram positive cocci (BEAKER) (test code = in pairs 32385) T4, [id number] 11:12:44 Test Item Value Reference Range Interpretation Comments FREE T4 (BEAKER) (test code = 655) 1.25 ng/dL 0.70-1.48 Patternmaker Plaster ID - AAHAMIDOSMOLALITY, [id number] 11:11:51 Test Item Value Reference Range Interpretation Comments OSMOLALITY, SERUM (BEAKER) (test 271 mOsm/kg 275-295 L code = 615) TSH/FREE T4 IF [id number] 10:36:27 Test Item Value Reference Range Interpretation Comments THYROID STIMULATING HORMONE 10.385 uIU/mL 0.350-4.940 H (BEAKER) (test code = 772) Patternmaker Plaster ID - [id number] 10:30:32 Test Item Value Reference Range Interpretation Comments CORTISOL, TOTAL (BEAKER) (test 11.9 ug/dL 3.7-19.4 code = 2755) Patternmaker Plaster ID - AAHAMIDCT, DRAINAGE, SOFT TISSUE FLUID [id number] 09:56:00Reason for exam:->tubo-ovarian abscess [facility] : 1975 Sex: [...] MDReport Verified Date/Time: 08/10/2022 09:56:28 Reading Location: [address] Neuro Reading Room BASIC METABOLIC [id number] 06:16:41 Test Item Value Reference Range Interpretation [...] (test code = 697) EGFR (BEAKER) 70 Interpretati on of eGFR (test code = [...] not appl icable for dialysis patien ts Patternmaker Plaster ID - ADMINSpecimen slightly qwrbclnOMSVNWEJZ7445-04-78 06:16:41 Test Item Value Reference Range Interpretation Comments MAGNESIUM (BEAKER) 1.9 mg/dL 1.6-2.6 Specimen slightly (test code = 627) hemolyzed Patternmaker Plaster ID - ADMINCBC (HEMOGRAM ONLY)2022-08-10 05:54:45 Test [...] 0-0 CELLS (BEAKER) (test code = 413) [id number] 04:19:50 Test Item Value Reference Range Interpretation Comments MAGNESIUM (BEAKER) (test code = 1.3 mg/dL 1.6-2.6 L 627) Patternmaker Plaster ID - MMBASIC METABOLIC [id number] 04:19:50 Test Item Value Reference Range Interpretation [...] not appl icable for dialysis patien ts Patternmaker Plaster ID - MMSpecimen slightly ictericCBC (HEMOGRAM ONLY)2022-08-09 [...] (BEAKER) (test code = 413) BASIC METABOLIC [id number] 06:27:34 Test Item Value Reference Range Interpretation [...] not appl icable for dialysis patien ts Patternmaker Plaster ID - DAMIÁN WSpecimen slightly ictericB-TYPE NATRIURETIC FACTOR (BNP) 2022-08-08 05:56:50 Test Item Value Reference Range Interpretation Comments B-TYPE NATRIURETIC PEPTIDE (BEAKER) 202 pg/mL 0-100 H (test code = 700) Patternmaker Plaster ID - BSCBC (HEMOGRAM ONLY)2022-08-08 05:36:13 Test [...] (BEAKER) (test code = 413) BASIC METABOLIC [id number] 05:39:11 Test Item Value Reference Range Interpretation [...] not appl icable for dialysis patien ts Patternmaker Plaster ID - ADMINSpecimen slightly ictericCBC (HEMOGRAM ONLY)2022-08-07 [...] 0-0 (BEAKER) (test code = 413) CT, [id number] 07:32:00Unlisted Reason for Exam - Click Yes and Enter Reason Below->NoProtocol Please Specify:->Standard ProtocolWill this procedure require oral contrast?->No [facility] : 1975 Sex: FFINAL REPORT CT abdomen and pelvis with contrast History: Tubo-ovarian abscess Comparison: none Technique: serial axial imaging was performed following up to 100cc of non ionic iodinated intravenous contrast as per departmental protocol. Multiplanar images are reconstructed and reviewed when indicated. This CT examination is performed using one or more of the following dose reduction techniques: Automated exposure control, adjustment of the mA and /or kV according to patient size, and/or use of iterative reconstruction technique. Findings:Unremarkable appearance of pancreas and spleen. Unremarkable appearance of the liver. The patient is status post cholecystectomy. Unremarkable ap pearance of the adrenal glands. Moderate cortical scarring/atrophy of the right kidney. There is no evidence of hydronephrosis. There is no concerning renal mass. . The previous peripherally enhancing cystic structure within the left adnexa with significant surrounding inflammatory change has increased in size, now measuring 6.5 x 3.6 cm in the axial plane, previously 5.0 x 2.9 cm. There is persistent fat stranding along the left gonadal vessels and within the retroperitoneum. Mild retroperitoneal lymphadenopathy is likely reactive. No small or large bowel obstruction. Long segment thickening of the sigmoid colon is likely reactive secondary to inflammatory changes within the left adnexa. No findings to indicate acute appendicitis. No abdominal aortic aneurysm. No aggressive osseous lesion. Impression:Findings remain suspicious for left adnexal tubo-ovarian abscess, with mild increase in size from 07/30/2022. Signed: Kam Vigil MDReport Verified Date/Time: 08/06/2022 07:32:46 Reading Locati on: [facility] Diagnostic Imaging Reading Room - [facility] F1 1129 Pregnancy Screen, [id number] 21:59:05 Test Item Value Reference Range Interpretation Comments Preg Test, Ur (test code = 2112-1) Negative Negative Lab Interpretation (test code = Normal 29672-1) [facility] HospitalPREGNANCY SCREEN, [id number] 21:59:05 Test Item Value Reference Range Interpretation [...] CONCENTRATION Adequate (CELLAVISION)(BEAKER) (test code = 3438) Patternmaker Plaster ID - Salena comments: Slide comments:BASIC METABOLIC [...] not appl icable for dialysis patien ts Patternmaker Plaster ID - ADMINSpecimen slightly ictericPROTHROMBIN TIME/[id number] 21:25:45 Test Item Value Reference Range Interpretation [...] mechanical heart valves.CBC W/PLT COUNT & AUTO [id number] 21:20:49 Test Item Value Reference Range Interpretation [...] (BEAKER) (test code = 413) Transthoracic echo [id number] 16:18:18Ejection FractionSLEH ECHO HEARTLAB MKCKESSON [facility] METABOLIC [id number] 05:26:56 Test Item Value Reference Range Interpretation [...] not appl icable for dialysis patien ts Patternmaker Plaster ID - MMSpecimen slightly ictericCBC (HEMOGRAM ONLY)2022-08-03 [...] CONCENTRATION Decreased (CELLAVISION)(BEAKER) (test code = 3438) Patternmaker Plaster ID - Salena comments: Slide comments:CBC W/PLT COUNT & AUTO [id number] 14:52:12 Test Item Value Reference Range Interpretation [...] (BEAKER) (test code = 413) BASIC METABOLIC [id number] 13:40:34 Test Item Value Reference Range Interpretation [...] not appl icable for dialysis patien ts Patternmaker Plaster ID - ADMINSpecimen moderately ictericMYOCARD IMAGING, MULTI, PHARM, [id number] 15:12:00Unlisted Reason for Exam - Click Yes and Enter Reason Below->NoAD[facility]Name[facility] : 1975 Sex: FFINAL REPORT PROCEDURE: MYOCARDIAL PERFUSION SPECT IMAGING (Rest/Stress)CPT CODE: 19466 INDICATION: Cardiac screening, high CAD risk CARDIOVASCULAR [...] . "The A1c is measured using a [facility]-certified method. HbA1c value equal to or greater than 6.5% as thediagnosis cutoff for diabetes. An HbA1c value of 5.7- 6.4% indicates increased risk for diabetes (prediabetes)."Patternmaker Plaster ID - ADM (CELLAVISION MANUAL DIFF)2022-08-01 08:26:35 [...] CONCENTRATION Decreased (CELLAVISION)(BEAKER) (test code = 3438) Patternmaker Plaster ID - Remy Carrerao-onUser comments: Slide comments:CBC W/PLT COUNT & AUTO [id number] 08:26:34 Test Item Value Reference Range Interpretation [...] (BEAKER) (test code = 413) HCG, QUANTITATIVE, [id number] 05:48:18 Test Item Value Reference Range Interpretation Comments GONADOTROPIN, CHORIONIC (HCG) QUANT < mIU/mL 0-10 (BEAKER) (test code = 649) Non- Females: <10 mIU/mL Females: Gestation Age Reference Range(mIU/mL) 0.2-1 Week 5-50 1-2 Weeks 50-500 2-3 Weeks 100-5,000 3-4 Weeks 500-10,000 4-5 Weeks 1,000-50,000 5-6 Weeks 10,000-100,000 6-8 Weeks 15,000- 200,000 2-3 Months 10,000-100,000 Patternmaker Plaster ID - DBBASIC METABOLIC PANEL 2022-08-01 05:41:39 [...] not appl icable for dialysis patien ts Patternmaker Plaster ID - DAMIÁN WSpecimen moderately [id number] 05:41:38 Test Item Value Reference Range Interpretation Comments MAGNESIUM (BEAKER) (test code = 1.7 mg/dL 1.6-2.6 627) Patternmaker Plaster ID - DAMIÁN [id number] 05:41:38 Test Item Value Reference Range Interpretation Comments PHOSPHORUS (BEAKER) (test code = 3.0 mg/dL 2.3-4.7 604) Patternmaker Plaster ID - DAMIÁN T/[id number] 05:39:59 Test Item Value Reference Range Interpretation [...] 2.5-3.5 for patients with mechanical heart valves.LIPID [id number] 22:24:08 Test Item Value Reference Range Interpretation Comments TRIGLYCERIDES (FortresswareAKER) (test code = 51 mg/dL 540) CHOLESTEROL (FortresswareAKER) (test code = 102 mg/dL 631) HDL CHOLESTEROL (FortresswareAKER) (test code 45 mg/dL = 976) LDL CHOLESTEROL CALCULATED ([employer]) 47 mg/dL (test code = 633) Triglyceride Reference Range: Low Risk <150 Borderline 150-199 High Risk 200- 499 Very High Risk >=500Cholesterol Reference Range: Low Risk <200 Borderline 200-239 High Risk >240HDL Cholesterol Reference Range: Low Risk >=60 High Risk <40LDL Cholesterol Reference Range: Optimal <100 Near Optimal 100-129 Borderline 130-159 High 160-189 Very High >=190 Patternmaker Plaster ID - [id number] ID - SJWEQE311Gwabfdja ID - ISBWKZ399Phychnso slightly ictericU/S, ENDOVAGINAL (EV)2022-07-31 14:38:00Reason for exam:->concern for [facility]AAD[facility]Name: [facility] : 1975 Sex: FFINAL REPORT [...] follow-up imaging with ultrasound. Signed: Shauna Duran [facility] Verified Date/Time: 07/31/2022 14:38:44 U/S, [id number] 14:38:00Reason for exam:->concern for [facility] : 1975 Sex: FFINAL REPORT [...] Shauna Duran MDReport Verified Date/Time: 07/31/2022 14:38:44 U/S, DUPLEX, [id number] 14:38:00 [facility] : 1975 Sex: [...] follow-up imaging with ultrasound. Signed: Shauna Duran MDRepfreeman orthopaedics & sports [facility] Verified Date/Time: 07/31/2022 14:38:44 CBC W/PLT COUNT & AUTO [id number] 03:57:39 Test Item Value Reference Range Interpretation [...] H PERCENT (BEAKER) (test code = 2801) [id number] 03:56:52 Test Item Value Reference Range Interpretation Comments MAGNESIUM (BEAKER) (test code = 1.5 mg/dL 1.5-3.0 627) Patternmaker Plaster ID - [id number] ID - VCVB71Hwdvetub ID - PWXH38Wsrnwxxa ID - ZNMP04 BASIC METABOLIC [id number] 03:55:31 Test Item Value Reference Range Interpretation [...] not appl icable for dialysis patien ts Patternmaker Plaster ID - RGHG39Pgduswse ID - AVUE17Whxmmmym ID - BPVR51Aooibqwg ID - HXTU73Weiaelkj ID - TVRC68Xlmueolh ID - RXEX32Ufnieuav ID - OFMN88Qnkstxmj ID - MANQ29Uvvbyoru ID - TTPS26Fpdlbrhf slightly [id number] 03:54:07 Test Item Value Reference Range Interpretation Comments PHOSPHORUS (BEAKER) (test code = 4.0 mg/dL 2.5-4.5 604) Patternmaker Plaster ID - [id number] 18:37:08 Test Item Value Reference Range Interpretation Comments MAGNESIUM (BEAKER) (test code = 1.6 mg/dL 1.5-3.0 627) Patternmaker Plaster ID - [id number] ID - SEIGR009Isxlonnh ID - LFVZR601Jnperhzq ID - [id number], CHEST, 1 VIEW, NON [id number] 16:51:00Reason for exam:->SOB, wheezingShould this be performed at the bedside?->Yes [facility] 1975 Sex: FFINAL [...] Carrera Verified Date/Time: 07/30/2022 16:51:52 Reading Location: [facility] Radiology Reading Room BASI METABOLIC PANEL [...] not appl icable for dialysis patien ts Patternmaker Plaster ID - [id number] ID - MORCR308Yelcsztg ID - WWWNU439Aacohqkn ID - FIBUK509Uahzraco ID - WUUMC214Wlaodgqq ID - TVJPT660Hlixfdba ID - GCKJT279Ywluqwfo ID - AEWLU494Ncvoiphy ID - WOSJB458Yawzdktz ID - SFUXK352Vvwdwwli ID - SLGUJ194Moeszpsu ID - EVSRQ247MFXXFITSFVA TIME/INR 2022-07-30 16:00:01 Test Item Value Reference [...] mechanical heart valves.CBC W/PLT COUNT & AUTO [id number] 15:52:31 Test Item Value Reference Range Interpretation [...] PERCENT (BEAKER) (test code = 2801) TISSUE [id number] 12:09:00Surgical Pathology Report Case: [id number] Authorizing Provider: Trudy James MD Collected: 02/17/2019 1126 Ordering Location: [address] Received: 02/17/2019 1147 Service Pathologist: Angela Beach MD Specimen: Gallbladder A. GALLBLADDER, CHOLECYSTECTOMY: - CHRONIC CHOLECYSTITIS WITH CHOLELITHIASIS. Signing Pathologist Direct Phone Line: [phone] signed by Angela Beach MD on 02/19/2019 at 12:09 [id number] renal mass Gallbladder Received in formalin labeled with the p atient's name, accession number and "gallbladder" is a [...] calculi. The mucosa is paiz-green and trabeculated. Thewall measures 0.2 cm thick. Furniture Reproducer sections are submitted in A1-A2, with the inked proximal margin is A1. PA/ew Performed.[facility], Department of Pathology, [address] [place] [address], [facility], Department of [facility]ology, [address] [place], [place] [address], [facility], Department of Pathology, [address] [place] [address], JLJ W/PLT COUNT & AUTO [id number] 07:03:00 Test Item Value Reference Range Interpretation [...] (BEAKER) (test code = 2801) BASIC METABOLIC [id number] 06:57:00 Test Item Value Reference Range Interpretation [...] APPLICABLE FOR DIALYSIS PATIEN TS. HEPATIC FUNCTION [id number] 06:57:00 Test Item Value Reference Range Interpretation [...] (test code = 347) hemolyzed HEPATIC FUNCTION [id number] 06:57:00 Test Item Value Reference Range Interpretation [...] 72 U/L 6-55 H 347) BASIC METABOLIC [id number] 06:57:00 Test Item Value Reference Range Interpretation [...] PATIEN TS. CBC W/PLT COUNT & AUTO [id number] 06:28:00 Test Item Value Reference Range Interpretation [...] PERCENT (BEAKER) (test code = 2801) SCREEN, [id number] 07:28:00 Test Item Value Reference Range Interpretation Comments TEST URINE (BEAKER) (test Negative code = 583) [id number] 07:28:00 Test Item Value Reference Range Interpretation Comments MAGNESIUM (BEAKER) 2.0 mg/dL 1.6-2.6 Specimen moderately (test code = 627) hemolyzed [id number] 07:28:00 Test Item Value Reference Range Interpretation Comments PHOSPHORUS (BEAKER) 4.0 mg/dL 2.3-4.7 Specimen moderately (test code = 604) hemolyzed BASIC METABOLIC [id number] 07:28:00 Test Item Value Reference Range Interpretation [...] APPLICABLE FOR DIALYSIS PATIEN TS. HEPATIC FUNCTION [id number] 07:28:00 Test Item Value Reference Range Interpretation [...] Specimen moderately (test code = 347) hemolyzed [id number] 07:28:00 Test Item Value Reference Range Interpretation Comments LIPASE (BEAKER) (test code = 749) 31 U/L 8-78 CBC W/PLT COUNT & AUTO [id number] 07:10:00 Test Item Value Reference Range Interpretation [...] (BEAKER) (test code = 2801) U/S, ABDOMINAL, [id number] 23:50:00Abdomen limited area? Add comment if clarification [...] Date/Time: 02/15/2019 23:50:53 URINALYSIS W/ REFLEX URINE [id number] 22:43:00 Test Item Value Reference Range Interpretation [...] SOURCE(BEAKER) (test code = 2795) HEPATIC FUNCTION [id number] 17:03:00 Test Item Value Reference Range Interpretation [...] Specimen slightly (test code = 347) hemolyzed [id number] 16:00:00 Test Item Value Reference Range Interpretation Comments MAGNESIUM (BEAKER) 2.1 mg/dL 1.6-2.6 Specimen slightly (test code = 627) hemolyzed BASIC METABOLIC [id number] 16:00:00 Test Item Value Reference Range Interpretation [...] hemolyz ed (test code = 364) PROTHROMBIN TIME/[id number] 15:31:00 Test Item Value Reference Range Interpretation [...] is 2.5-3.5 for patients wiht mechanical heart valves.[id number] 15:31:00 Test Item Value Reference Range Interpretation Comments PARTIAL THROMBOPLASTIN TIME 31.4 seconds 22.5-36.0 (BEAKER) (test code = 760) CBC W/PLT COUNT & AUTO [id number] 15:14:00 Test Item Value Reference Range Interpretation [...] Consult Notes Date/Time Note Provider Source 2022-11-28 6290-17-36M25:23:09Associated Patrick Wallace OT [facility] 10:23:09 Order(s): CONSULT ADULT OCCUPATIONAL THERAPY OT GENERAL EVALUATIONConsult received via GoodRx, EMR reviewed and evaluation completed 11/28/22. Patient referred to occupational therapy for evaluation and treatment. Patient is 47 year old female with chest pain, NSTEMI. 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 55937-9Mhbzujh ruufTO4826-85-52G63:15:28Consult noteTXT1.2.840.478845.1.13.104.2.7.2 .178577|[id number] for patient ldau23835-9Slzjefo [id number] C Lawas [address][id number] ORTUNLUJFGBKKDUOHBXYIR8573-22-73K96: 15:281.2.840.569792.1.72.3.15|1.2.84 0.561376.1.13.104.2.7.2.727879_18983 [id number] 2022-11-28 9804-24-07X04:45:00Associated Savanna Juarez [facility] 09:45:00 Order(s): CONSULT ADULT PHYSICAL THERAPY Patient [...] setting of methamphetamine use), CAD c/b unspecified [place] (02/2022 per [facility]where), HFpEF, hypertension, hyperlipidemia, COPD, GERD, and seizure disorder (not on medications) presenting as a transfer from [facility] for NSTEMI. Troponin peaked at [...] setting of methamphetamine use), CAD c/b unspecified [place] (02/2022 per [facility]where), HFpEF, hypertension, hyperlipidemia, COPD, GERD, and seizure disorder (not on medications) presenting as a transfer from [facility] for NSTEMI. Troponin peaked at [...] a SS house, and sisterDME: Wheel Chair m2Balrm level of Mobility: requires assistance with transfers, requires assistance with bed mobility, uses w/c primarily, family/caregiver. Per patient, her sister puts her on the wheelchair, pushes her on the wheelchair since 2022Suspected ischemic or hemorraghic stroke:Yes, Pre-Stroke Modified Marli Score: 4 - Moderately severe disability; unable to walk without assistance and unable to attend to own bodily needs without assistance Subjective: "My sister pushes me around"Patient/Family Goals: To go homePatient/Family verbalizes understanding of condition: Yes PAIN: denies pain before and after sessionCOMMUNICATIONPrimary Language: Nicaraguan Able to Verbalize needs: Yes Vision:good; no [...] Time in Minutes: 33 minSavanna Juarez PT, DPTUnBaylor Scott & White Medical Center – College StationRehabilitation Services A physical therapy evaluation of high [...] clinical presentation with unstable and unpredictable characteristics 13989-2Dvwhwgg xrbwOM8527-75-03W43:53:18Consult noteTXT1.2.840.665173.1.13.104.2.7.2 .336643|[id number] for patient mjcq30232-8Aywlhst [id number] Pallera PTUT[address] An[id number] BTLMTYNPOTSTDEFHPYMGJU7748-31-42A18: 53:181.2.840.223373.1.72.3.15|1.2.84 0.012162.1.13.104.2.7.2.727879_18983 82715 2022-11-25 8713-86-31O80:49:18Associated PN-NEUROLOGY [facility] 18:49:18 Order(s): CONSULT NEUROLOGY STROKE SERVICE [...] (mIU/L) Date Value 11/24/2022 2.03 Recent Labs 1 TROPNI 0.911* 0.579* RADIOLOGY CT HEAD WO [...] with Dr. Rivera, Neurology Faculty Stroke pager: [phone] Shahnaz Borges, MDPGY-4, NeurologyPager: [phone] signed by Romaine Rivera MD at 11/26/2022 [...] reported) and/or communicating results to the patient/family/caregiver. 75346-7Texbndd kgdiOT5219814Uypsondw, Hashem1.2.840.399912.1.13.104.2.7.2. 771812HvivzacpUwhszaNQ0687-95-79F12: 21:11Consult noteTXT1.2.840.420960.1.13.104.2.7.2 .219391|[id number] for patient aofx12475-2Hupphdz orddVQLW-IARAHHZTEIQ-HTXWJYJLTRIFYMR [address] Xd[id number] BUFSYOUPFJGDNQPFSXRWTW5511-67-59U62: 21:111.2.840.012994.1.72.3.15|1.2.84 0.261511.1.13.104.2.7.2.727879_18956 74902 2022-11-25 2144-03-38M62:00:00Associated Analy Caceres [facility] 18:00:00 Order(s): CONSULT PS PASTORAL Filippo CARE Wool Sorter visited with patient in response to consult for pastoral care and support. Patient was awake and acknowledged digital pre press operator's presence. Pt was alone in room. The Pt said she was of Judaism nicole. The PT. Expressed to the Wool Sorter of some fear,about her upcomming surgery that going to be done on her heart.Pt asked the Wool Sorter to pray for her and for God to give her peace. The Wool Sorter provided spiritual support through prayer of healing, peace and comfort. Wool Sorter provided pastoral presence, and validated feelings. Pastoral care will continue to follow up as needed. Rev.Analy Ferro [facility] Department of Pastoral CarePh: [phone]: [phone] 99422-5Hiouczf uaoyYO5172-51-40U67:31:33Consult noteTXT1.2.840.573892.1.13.104.2.7.2 .922926|[id number] for patient sbzj65428-1Rlsqeez brfuBI071663428Ibfhzpx Morris [address][id number] WSMZGPLOYYKUQQDXGMVTIW8979-56-10D19: 31:331.2.840.599333.1.72.3.15|1.2.84 0.077570.1.13.104.2.7.2.727879_18956 [id number] 2022-11-25 4996-01-03U21:53:13Associated PED-PEDIATRICS [facility] 10:53:13 Order(s): CONSULT ALLERGY ALLERGY & IMMUNOLOGY CONSULT NOTEDATE OF SERVICE: 11/25/22REASON FOR CONSULT: Aspirin allergyHPI: Patient is a 47 year old female with a past medical history significant for recent hemorrhagic stroke (10/29/22; 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 - Plan also explained to via montenegrin translatorPatient seen with Dr. Magaña. Thank you for this consult. We will continue to follow the patient peripherally. Please do not hesitate to reach out to the on-call fellow with additional questions or concerns. Bere Arroyo, [facility] BILOXIllergy and Immunology Fellow, PGY-4 ssociated attestation - [...] see the fellow's note for additional details. 37585-8Apczxyt [id number], Sarah1.2.840.180050.1.13.104.2.7.2.8 58396RspfDtlrzMI6397-92-24W38:58:19C onsult noteTXT1.2.840.007622.1.13.104.2.7.2 .475234|[id number] for patient snrd25658-3Hzquojb htssLRBKY-GRYWEPCKMISPX-KMYRWFGIHRKZ [id number] HNEMOAKJSYBBQRJFDPGAHP7705-27-48L78: 58:191.2.840.693136.1.72.3.15|1.2.84 0.525832.1.13.104.2.7.2.727879_18954 [id number] 2022-11-24 0752-04-70L64:08:12Associated NS-NEUROLOGICAL [facility] 16:08:12 Order(s): CONSULT SURGERY NEUROSURGERY NEUROSURGERY CONSULTATION HISTORY AND PHYSICALAttending Neurosurgeon: Dr. 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), CAD c/b unspecified [place] (02/2022 per [facility]), HFpEF, hypertension, hyperlipidemia, COPD, GERD, and seizure disorder (not on medications) presenting as a transfer from [facility] for NSTEMI currently on heparin [...] 100% 100% Weight: Height: Awake, alert, oriented h7ZANYM bilaterally at 3mmEOMI bilaterallySlight left lower facial [...] setting of methamphetamine use), CAD c/b unspecified [place] (02/2022 per [facility]where), HFpEF, hypertension, hyperlipidemia, COPD, GERD, and seizure disorder (not on medications) presenting as a transfer from [facility] for NSTEMI currently on heparin drip. NSGY consulted for recs regarding heparin in light of recent hemorrhagic stroke. Pt at neurologic baseline s/p stroke.Recommendations:No neurosurgical interventionPlease consult neurology for management and recommendations of anticoagulation w/ hx of hemorrhagic strokeWill sign off at this timeChrismariangel White MDNeurosurgery ServiceFor inquiries please page [phone] signed by Burton Howell MD at 11/25/2022 12:23 PM CDTAssociated attestation - Burton Howell MD - 11/25/2022 12:23 PM CDT I personally evaluated and am primary in decision making on, Geetha Minor, and I agree with the documentation by Sinan White MD,neurosurgery resident.05933-9Xbsoaup rvfwOZ1201428Cfgobt, Rudy P1.2.840.055197.1.13.104.2.7.2.16251 6ScjmbmAwhcQPI9009-58-57A40:23:14Con [facility] noteTXT1.2.840.387077.1.13.104.2.7.2 .235995|[id number] for patient fkfd54461-5Bqzwlyx noteLNNS-NEUROLOGICAL SURGERYNS-NEUROLOGICAL SURGERY[address] Fox StreetOr[id number] HLFSHQXKQYWQECIJCTDFNS5330-74-93N95: 23:141.2.840.554164.1.72.3.15|1.2.84 0.728183.1.13.104.2.7.2.727879_18954 53206 History and Physical Notes Date/Time Note Provider Source 2022-11-24 11:33:08 2222-25-53E52:33:08Formatting of this note [facility] is different from the original.Images from the original note were not included.CCU History and Physical Date of Service: 11/24/2022 15:48 ICU day: Intubation Day: CHIEF COMPLAINT: Chest painHistory of Present IllnessGeetha Minor is a 47 year old female with a past medical history significant for recent hemorrhagic stroke (10/29/22; hypertensive emergency in setting of methamphetamine use), CAD c/b unspecified [place] (02/2022 per [facility]), HFpEF, hypertension, hyperlipidemia, COPD, GERD, and seizure disorder (not on medications) presenting as a transfer from [facility] for NSTEMI. On my interview, [...] for amphetamines during her recent hospitalization.Workup at [facility] showed ST depression and TWI in inferior [...] 454 ms QTC Calculation(Bazett) 460 ms P Garber 19 degrees R Garber 64 degrees T Garber 254 degrees Normal sinus rhythm Possible Left [...] sedated at OSH prior to transfer to [facility] NICU, extubated on 10/30, required nicardipine gtt and [...] care of her , she will need 24/ assistance. UDS 10/29/22Assessment/Plan:Geetha Minor is a 47 [...] develop- Sedation/Analgesia: NoneRespCOPDHx tobacco abuse- DuoNebs prn- G3FRJruyvfidybjqtkSOGSABQgzmr painReported CAD HFpEFBradycardiaHTNHLDPatient presenting as a transfer from [facility] with NSTEMI. Troponin elevated here on [...] evaluation of volume status- CXR- Will need [facility] this admission- Continue Plavix (allergic to [...] prophylaxis: heparinLines/Catheters:Peripheral IV 11/24/22 Right Antecubital Inserted [employer]ITION[employer]CE [employer] SKILLS (Active) Number of days: 0 Dispo: CCUPrognosis: GuardedCode Status: CHANTALE GuzmanGY-3, Department of Internal Medicine ssociated attestation - [...] ordering referrals and/or communicating with other health daycare director (when not separately reported), documenting clinical information in the electronic or other health record, and care coordination (not separately reported).- hemodynamically stable- Neurosurgery consult for systemic AC / DAPT in the future, given h/o ICH- allergy consult for ASA desensitizationJOSE Cierra GONZALEZ MD, [facility], [facility], [facility]PITALAAssistant ProfessorCardiology, Advanced Heart Failure, LVAD & Transplant ServiceDate of service: [id number] and physical [id number]-Bdewkjfs, Jose C1.2.840.681838.1.13.104.2.7.2.763258Ziigw bnhhl-EjasqumcZanlDFJ8682-05-10T15:30:41Hi story and physical noteTXT1.2.840.428596.1.13.104.2.7.2.58688 9|[id number] for patient gquj31376-3Qhncfdn and physical noteLNUTMB[address] Sk[id number] QYOLWKYDATKYEIFM2434-78-96U66:30:411.2.840 .593657.1.72.3.15|1.2.840.662646.1.13.104. 2.7.2.727879_1895394769
[2023-01-03 09:33] LABS: Absolute Lymphocytes (CBC) 1.7 K/uL (0.7-4.9); Hematocrit 35.5 % (36.0-45.0); MCV 93.5 fL (80-100); MPV 6.5 fL (7.6-11.3); Platelets 286 thou/uL (152-406)
[2023-01-03 09:34] LABS: Protime INR 1.06
[2023-01-03 09:51] LABS: Potassium 4.1 mEq/L (3.5-5.1)
[2023-01-03 09:52] LABS: Troponin High Sensitivity 74.2 pg/mL (<58.9)
[2023-01-03 09:55] LABS: SARS-CoV-2 Antigen Rapid Res Negative (Negative)
--- NOTE | 2023-01-03 10:21 | EDPHYS ---
Physician Documentation [facility] Name: Geetha Khan Age: 47 yrs Sex: Female : 1975 Arrival Date: 01/03/2023 Time: 09:02 Bed 5 Private MD: ED Physician Michael Grimm HPI: 01/03 09:11 This 47 yrs old Female presents to ER via EMS with complaints of Chest Pain, Congestion.jh7 09:11 The patient or guardian reports chest pain that is located primarily in the substernal jh7 area. Onset: at 01:00. The pain does not radiate. 09:11 Associated signs and symptoms: Pertinent positives: cough. jh7 09:11 The chest pain is described as aching. Modifying factors: the symptoms are aggravated jh7 by breathing, cough. Patient also reports right-sided axillary pain. Left-sided hemiplegia due to previous stroke. She reports cough and runny nose for the past 2 days.. 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 - Social history:: Smoking status: Patient reports the use of cigarette tobacco products, smokes one pack cigarettes per day. ROS: 09:11 Constitutional: Negative for fever, chills, and weight loss, Eyes: Negative for injury, jh7 pain, redness, and discharge, Neck: Negative for injury, pain, and swelling, Abdomen/GI: Negative for abdominal pain, nausea, vomiting, diarrhea, and constipation, Back: Negative for injury and pain, MS/Extremity: Negative for injury and deformity, Skin: Negative for injury, rash, and discoloration, Neuro: Negative for headache, weakness, numbness, tingling, and seizure, 09:11 ENT: Positive for nasal discharge, 09:11 Cardiovascular: Positive for chest pain, with cough, 09:11 Respiratory: Positive for cough, Negative for shortness of breath, 09:11 All other systems are negative, Exam: 09:11 Constitutional: This is a well developed, well nourished patient who is awake, alert, jh7 and in no acute distress. Head/Face: Normocephalic, atraumatic. ENT: Nares patent. No nasal discharge, no septal abnormalities noted. Tympanic membranes are normal and external auditory canals are clear. Oropharynx with no redness, swelling, or masses, exudates, or evidence of obstruction, uvula midline. Mucous membranes moist. Neck: Trachea midline, no thyromegaly or masses palpated, and no cervical lymphadenopathy. Supple, full range of motion without nuchal rigidity, or vertebral point tenderness. No Meningismus. Cardiovascular: Regular rate and rhythm with a normal S1 and S2. No gallops, murmurs, or rubs. Normal PMI, no JVD. No pulse deficits. Respiratory: Lungs have equal breath sounds bilaterally, clear to auscultation and percussion. No rales, rhonchi or wheezes noted. No increased work of breathing, no retractions or nasal flaring. Abdomen/GI: Soft, non-tender, with normal bowel sounds. No distension or tympany. No guarding or rebound. No evidence of tenderness throughout. Skin: Warm, dry with normal turgor. Normal color with no rashes, no lesions, and no evidence of cellulitis. MS/ Extremity: Pulses equal, no cyanosis. Neurovascular intact. L sided hemiplegia secondary to prior stroke. Neuro: Awake and alert, GCS 15, oriented to person, place, time, and situation. Vital Signs: 09:02 BP 95 / 62; Pulse 68; Resp 18; Temp 98(O); Pulse Ox 96% on R/A; Weight 63.5 kg; Height db 5 ft. 2 in. ; Pain 9/10; 10:30 BP 131 / 88; Pulse 60; Resp 18; Pulse Ox 95% ; db 11:30 BP 94 / 59; Pulse 65; Resp 16; Pulse Ox 94% on R/A; db 12:30 BP 109 / 68; Pulse 60; Resp 18; Pulse Ox 97% on R/A; db 13:30 BP 109 / 65; Pulse 61; Resp 16; Pulse Ox 94% on R/A; db 15:00 BP 98 / 59; Pulse 60; Resp 18; Pulse Ox 98% on R/A; db 09:02 Body Mass Index 25.61 (63.50 kg, 157.48 cm) db 09:02 Pain Scale: Adult db MDM: 09:05 Patient medically screened. [facility] 10:10 Differential diagnosis: abnormal EKG, acute myocardial infarction, acute pericarditis, 7 chest wall pain, congestive heart failure pericarditis, pneumonia, stable angina, unstable angina. YEVGENIY Risk Score: 1 - Three or more CAD risk factors, 1- Known CAD, 1 - Elevated Cardiac Markers, TOTAL SCORE = 3. Data reviewed: vital signs, nurses notes, lab test result(s), EKG, radiologic studies, plain films. Consideration of Admission/Observation Patient was admitted/placed on observation. Management of patient was discussed with the following: Hospitalist: GOMEZ Forte for Dr. Gan. I considered the following discharge prescriptions or medication management in the emergency department Medications were administered in the Emergency Department. See MAR. Independent interpretation of the following test(s) in the Emergency Department EKG: See my EKG interpretation above X-Ray: My interpretation is no acute findings. Care significantly affected by the following chronic conditions: Hypertension, Congestive Heart Failure, Chronic Obstructive Pulmonary Disease. Counseling: I had a detailed discussion with the patient and/or guardian regarding the historical points, exam findings, and any diagnostic results supporting the discharge/admit diagnosis, the need for further work-up and treatment in the hospital. Response to treatment: the patient's symptoms have mildly improved after treatment. 10:10 Scoring Tools HEART Score: History: ECG: Age: Risk Factors: Troponin: Total Score = 7. [facility] 01/03 09:06 Order name: Basic Metabolic Panel; Complete Time: 09:54 [facility] 01/03 09:06 Order name: CBC with Diff; Complete Time: 09:44 [facility] 01/03 09:06 Order name: NT PRO-BNP; Complete Time: 09:54 [facility] 01/03 09:06 Order name: PT-INR; Complete Time: 09:35 [facility] 01/03 09:06 Order name: Troponin HS; Complete Time: 09:54 [facility] 01/03 09:26 Order name: SARS RAPID; Complete Time: 09:56 [facility] 01/03 11:46 Order name: Troponin High Sensitivity; Complete Time: 12:27 [facility] 01/03 09:06 Order name: XRAY Chest (1 view); Complete Time: 10:26 [facility] 01/03 09:06 Order name: EKG; Complete Time: : [facility] 01/03 09:06 Order name: Cardiac monitoring; Complete Time: [facility] 01/03 09:06 Order name: EKG - Nurse/Tech; Complete Time: [facility] 01/03 09:06 Order name: IV Saline Lock; Complete Time: [facility] 01/03 09:06 Order name: Labs collected and sent; Complete Time: [facility] 01/03 09:06 Order name: O2 Per Protocol; Complete Time: [facility] 01/03 09:06 Order name: O2 Sat Monitoring; Complete Time: [facility] EC: Rate is 67 beats/min. Rhythm is regular. QRS [place] is Normal. HI interval is normal at [facility] 202 msec. QRS interval is normal at 92 msec. QT interval is normal at 434 msec. No Q waves. T waves are Normal. No ST changes noted. Clinical impression: NSR. Administered Medications: : Not Given (Physician Discretion): aspirinchewable tablet 324 mg PO once; 81 mg tablets [facility] x 4 10:40 Drug: morphine IVP or IV 2 mg IVP once over 4 mins Route: IVP; Infused Over: 4 mins; db Site: right forearm; 10:40 Drug: Ondansetron IVP 4 mg IVP once; over 2 minutes Route: IVP; Site: right forearm; db Disposition Summary: 01/03/23 10:20 Hospitalization Ordered Notes: Hospitalization Status: Inpatient Admission [facility] Provider: Flo Gan [facility] Location: Telemetry/MedSurg (Inpatient) [facility] Condition: Fair [facility] Problem: new [facility] Symptoms: have worsened [facility] Bed/Room Type: Standard [facility] Room Assignment: (01/03/23 15:04) em1 Diagnosis - Subsequent non-ST elevation (NSTEMI) myocardial infarction [facility] - Unspecified combined systolic (congestive) and diastolic (congestive) heart failure [facility] Forms: - Medication Reconciliation Form [facility] - SBAR form [facility] - Leadership Thank You Letter [facility] Signatures: Dispatcher [employer] Reyes Mireles em1 Bia Posey, DERRICK BUILDER DERRICK BUILDER [facility] Martel, Yeimy, RN RN db Corrections: (The following items were deleted from the chart) 09:28 09:11 Associated signs and symptoms: Pertinent positives: cough, 7 [facility] 10:15 09:11 Constitutional: This is a well developed, well nourished patient who is awake, [facility] alert, and in no acute distress. Head/Face: Normocephalic, atraumatic. ENT: Nares patent. No nasal discharge, no septal abnormalities noted. Tympanic membranes are normal and external auditory canals are clear. Oropharynx with no redness, swelling, or masses, exudates, or evidence of obstruction, uvula midline. Mucous membranes moist. Neck: Trachea midline, no thyromegaly or masses palpated, and no cervical lymphadenopathy. Supple, full range of motion without nuchal rigidity, or vertebral point tenderness. No Meningismus. Cardiovascular: Regular rate and rhythm with a normal S1 and S2. No gallops, murmurs, or rubs. Normal PMI, no JVD. No pulse deficits. Respiratory: Lungs have equal breath sounds bilaterally, clear to auscultation and percussion. No rales, rhonchi or wheezes noted. No increased work of breathing, no retractions or nasal flaring. Abdomen/GI: Soft, non-tender, with normal bowel sounds. No distension or tympany. No guarding or rebound. No evidence of tenderness throughout. Skin: Warm, dry with normal turgor. Normal color with no rashes, no lesions, and no evidence of cellulitis. MS/ Extremity: Pulses equal, no cyanosis. Neurovascular intact. Full, normal range of motion. Neuro: Awake and alert, GCS 15, oriented to person, place, time, and situation. [facility] 14:58 10:20 [facility] em1 15:04 14:58 [address] [facility] em1
--- NOTE | 2023-01-03 10:21 | ER ---
Nurse's Notes [facility] Name: Geetha Khan Age: 47 yrs Sex: Female : 1975 Arrival Date: 01/03/2023 Time: 09:02 Bed 5 Private MD: Diagnosis: Subsequent non-ST elevation (NSTEMI) myocardial infarction;Unspecified combined systolic (congestive) and diastolic (congestive) heart failure Presentation: 01/03 09:02 Chief complaint: EMS states: PATIENT STARTED WITH CP AT 0100 CALLED EMS DID NOT GO WITH db PT WANTED SLEEP. WOKE UP AT 0600 WITH CP AGAIN. RIGHT UNDER BREAST PAIN AND CENTER CHEST PAIN. COMPLAINS OF COUGH AND CONGESTION WITH RUNNY NOSE. Coronavirus screen: Vaccine status: Patient reports being unvaccinated. Client denies travel out of the [place] in the last 14 days. At this time, the client does not indicate any symptoms associated with coronavirus-19. Ebola Screen: Patient negative for fever greater than or equal to 101.5 degrees Fahrenheit, and additional compatible Ebola Virus Disease symptoms Patient denies exposure to infectious person. Patient denies travel to an Ebola-affected area in the 21 days before illness onset. No symptoms or risks identified at this time. Initial Sepsis Screen: Does the patient meet any 2 criteria? No. Patient's initial sepsis screen is negative. Does the patient have a suspected source of infection? No. Patient's initial sepsis screen is negative. Risk Assessment: Do you want to hurt yourself or someone else? Patient reports no desire to harm self or others. Onset of symptoms was January 03, 2023. Care prior to arrival: IV initiated. 20 GA, in the right wrist. 09:02 Method Of Arrival: EMS: [facility] db 09:02 Acuity: CORRINA 2 db Triage Assessment: 09:18 General: Appears in no apparent distress. comfortable, Behavior is calm, cooperative. db Pain: Complains of pain in chest. Neuro: Level of Consciousness is awake, alert, obeys commands, Oriented to person, place, time, situation. Cardiovascular: Reports chest pain. Respiratory: Airway is patent Respiratory effort is even, unlabored, Respiratory pattern is regular, symmetrical. 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 - Social history:: Smoking status: Patient reports the use of cigarette tobacco products, smokes one pack cigarettes per day. Screenin:30 [facility] ED Fall Risk Assessment (Adult) History of falling in the last 3 months, db including since admission No falls in past 3 months (0 pts) Confusion or Disorientation No (0 pts) Intoxicated or Sedated No (0 pts) Impaired Gait Yes (1 pt) Mobility Assist Device Used Yes (1 pt) Altered Elimination No (0 pt) Score/Fall Risk Level 0 - 2 = Low Risk Oriented to surroundings, Maintained a safe environment. Abuse screen: Denies threats or abuse. Denies injuries from another. Nutritional screening: No deficits noted. Tuberculosis screening: No symptoms or risk factors identified. Assessment: 10:30 Reassessment: Patient appears in no apparent distress at this time. Patient and/or db family updated on plan of care and expected duration. Pain level reassessed. Patient is alert, oriented x 3, equal unlabored respirations, skin warm/dry/pink. Pain: Complains of pain in chest Pain radiates to UNDER BREAST Pain began 4 hours ago. 11:30 Reassessment: Patient appears in no apparent distress at this time. Patient and/or db family updated on plan of care and expected duration. Pain level reassessed. Patient is alert, oriented x 3, equal unlabored respirations, skin warm/dry/pink. General: Appears in no apparent distress. comfortable, Behavior is calm, cooperative. Neuro: Level of Consciousness is awake, alert, obeys commands, Oriented to person, place, time, situation. 12:30 Reassessment: Patient appears in no apparent distress at this time. Patient and/or db family updated on plan of care and expected duration. Pain level reassessed. Patient is alert/active/playful, equal unlabored respirations, skin warm/dry/pink. 13:42 Reassessment: Patient appears in no apparent distress at this time. Patient and/or db family updated on plan of care and expected duration. Pain level reassessed. Patient is alert, oriented x 3, equal unlabored respirations, skin warm/dry/pink. PATIENT RESTING IN NAD. SLEEPING. 15:00 Reassessment: Patient appears in no apparent distress at this time. Patient and/or db family updated on plan of care and expected duration. Pain level reassessed. Patient is alert, oriented x 3, equal unlabored respirations, skin warm/dry/pink. Vital Signs: 09:02 BP 95 / 62; Pulse 68; Resp 18; Temp 98(O); Pulse Ox 96% on R/A; Weight 63.5 kg; Height db 5 ft. 2 in. ; Pain 9/10; 10:30 BP 131 / 88; Pulse 60; Resp 18; Pulse Ox 95% ; db 11:30 BP 94 / 59; Pulse 65; Resp 16; Pulse Ox 94% on R/A; db 12:30 BP 109 / 68; Pulse 60; Resp 18; Pulse Ox 97% on R/A; db 13:30 BP 109 / 65; Pulse 61; Resp 16; Pulse Ox 94% on R/A; db 15:00 BP 98 / 59; Pulse 60; Resp 18; Pulse Ox 98% on R/A; db 09:02 Body Mass Index 25.61 (63.50 kg, 157.48 cm) db 09:02 Pain Scale: Adult db ED Course: 09:05 Patient arrived in ED. em1 09:05 Bia Posey FNP [facility]. jh7 09:05 Michael Grimm MD is Attending Physician. jh7 09:11 EKG done, by ED staff. db 09:11 Maintain EMS IV. Dressing intact. Good blood return noted. Site clean \T\ dry. Gauge \T\ db site: 20 G R WRIST . 09:15 Yeimy Martel, RN is Primary Nurse. db 09:18 Triage completed. db 09:18 Arm band placed on Patient placed in an exam room. db 10:03 XRAY Chest (1 view) In Process Unspecified. EDMS 10:19 Flo Gan MD is Hospitalizing Provider. jh7 10:30 Patient has correct armband on for positive identification. Bed in low position. Call db light in reach. Side rails up X2. Client placed on continuous cardiac and pulse oximetry monitoring. NIBP monitoring applied. Warm blanket given. 13:46 Provided Education on: ADMISSION. db 15:15 No provider procedures requiring assistance completed. IV discontinued, intact, db bleeding controlled, No redness/swelling at site. Patient maintains SpO2 saturation greater than 95% on room air. Administered Medications: 09:26 Not Given (Physician Discretion): aspirinchewable tablet 324 mg PO once; 81 mg tablets jh7 x 4 10:40 Drug: morphine IVP or IV 2 mg IVP once over 4 mins Route: IVP; Infused Over: 4 mins; db Site: right forearm; 10:40 Drug: Ondansetron IVP 4 mg IVP once; over 2 minutes Route: IVP; Site: right forearm; db Medication: 15:46 VIS not applicable for this client. db Outcome: 10:20 Decision to Hospitalize by Provider. jh7 15:15 Discharged to home via wheelchair, with family, db 15:15 Condition: stable 15:15 Discharge instructions given to patient, family, Instructed on discharge instructions, follow up and referral plans. Prescriptions given X sent with patient 15:37 Patient left the ED. iw Signatures: Dispatcher [employer] Iqra Antony, RN RN Reyes Ortiz em1 Bia Posey, MACHINE SHOP WORKER MACHINE SHOP WORKER 7 Yeimy Martel, RN RN db
--- NOTE | 2023-01-03 10:25 | RAD REPORT ---
EXAM DESCRIPTION: [facility] Single View01/03/2023 10:02 am CLINICAL HISTORY: Chest pain COMPARISON: December 26, 2022 FINDINGS: The lungs appear clear of acute infiltrate. The heart is normal size IMPRESSION: No acute abnormalities displayed
[2023-01-03] MEDS ORDERED: ONDANSETRON 4 MG/2 ML VIAL ONE (10:55)
[2023-01-03] MEDS ORDERED: MORPHINE 2 MG/ML SYR ONE (10:55)
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
[2023-01-03 13:52] VITALS: TEMP 98
[2023-01-03 15:48] VITALS: BP 109/65; O2SAT 94
--- NOTE | 2023-01-04 14:44 | EKG ---
Test Date: 2023-01-03 Test Time: 09:11:05 Slat Basket Maker Machine: MAYANK MEASUREMENT RESULTS: Intervals: Rate: 67 PA: 202 QRSD: 92 QT: 434 QTc: 458 [place]: P: 25 PA: 202 QRS: 1 T: 159 INTERPRETIVE STATEMENTS: Normal sinus rhythm Left ventricular hypertrophy with repolarization abnormality Abnormal ECG Compared to ECG 12/23/2022 23:44:27 No significant changes Electronically Signed On 01-04-23 14:41:25 CDT by Josse Olson
== END 2023-01-03 15:40 | disposition home health service (06) ==
LOC: ER 09:02 → ERHOLD 13:39
PROVIDERS: ADMIT Hospitalist; ATTEND Hospitalist
DX: R07.9 Chest pain, unspecified (principal); I50.32 Chronic diastolic (congestive) heart failure; I25.2 Old myocardial infarction; I10 Essential (primary) hypertension; M94.0 Chondrocostal junction syndrome [Tietze]; G89.29 Other chronic pain; F32.A Depression, unspecified; F17.210 Nicotine dependence, cigarettes, uncomplicated; F15.10 Other stimulant abuse, uncomplicated; Z91.013 Allergy to seafood; Z91.018 Allergy to other foods; Z86.73 Personal history of transient ischemic attack (TIA), and cerebral infarction without residual deficits
CPT/HCPCS: 36415; 71045; 80048; 83880; 84484; 85025; 85610; 87811; 93005; G0378; J2270; J2405

== ENCOUNTER 2023-01-08 16:03 | Observation (INO) | payer SELFPAY ==
--- OUTSIDE RECORDS SUMMARY | 2023-01-08 16:11 | XMS REPORT | Continuity of Care Document ---
:1975 Author Organization [facility] t Address [address] [facility] [address] [place] [address] Care Team Providers Name Role Phone PCP, PATIENT DOES NOT HAVE A Primary Care Physician UnavailZAHRA Stoner Attending Clinician Unavailable SUSIE TAI Attending Clinician Unavailable KATHY MAHMOOD Attending Clinician Unavailable MURRAY ELISE Attending Clinician Unavailable Desi Sotelo LVN Attending Clinician Zohaib Parsons MD Attending Clinician [phone] Ryne Yoder MD Attending Clinician Meghana Felix MD Attending Clinician RYNE YODER Attending Clinician Unavailable GOYO HANKINS Attending Clinician Unavailable DANYEL WHITESIDE Attending Clinician Unavailable Vijay Jenkins Attending Clinician KRISTIN SHAH Attending Clinician Unavailable Fredis ECHEVERRIA, Sun In Attending Clinician Aida Alcala MD Attending Clinician [phone] Clifton De Luna MD Attending Clinician [phone] Pablo ECHEVERRIA, Kristin Cano Attending Clinician [phone] CLIFTON DE LUNA Attending Clinician Unavailable Les Al MD Attending Clinician Nena Waller MD Attending Clinician Matias ECHEVERRIA, Leonid Orr Attending Clinician DAYRON FOSTER Attending Clinician Unavailable Dayron Foster MD Attending Clinician [phone] ZAIN SALAS Attending Clinician Unavailable AMANDA [...] abscess 5-21 Iqra kes 00:00: Medical 00 [place] Abdominal Abdominal Disease Recurre [facility] infection infection nce 5-16 [facility] s 00:00: Medical 00 Center Pelvic Pelvic Disease Active [facility] abscess in abscess in 5-15 Iqra kes female female 00:00: Medical 00 [place] Acute Acute Disease Active 2018-[address] [facility] cholecysti cholecysti 2-03 Iqra kes tis tis 00:00: Medical 00 [place] Calculus Calculus Disease Active 2018-03 [facility] of of 2-02 [facility] gallbladde gallbladde 00:00: Me dical r without r without 00 Cent er cholecysti cholecysti tis tis without without obstructio obstructio n n Transamini Transamini Disease Active 2019-[address] tis tis 2-02 [facility] 00:00: Medical 00 [place] Hypertensi Hypertensi Disease Recurre 2018- [facility] on on nce 04-19 [facility] 00:00: Medical 00 [place] Seizure Seizure Disease Recurre 2018- [facility] disorder disorder nce 2- [facility] 00:00: Medical 00 [place] Anemia Anemia Disease Active 2019- [facility] 2- [facility] 00:[facility]: Medical 00 [place] Thrombocyt Thrombocyt Disease Active 2019- [facility] osis osis - [facility] [...] ity of 00:00: [place] 00 Medical Branch ASPIRIN Allergy Active High Anaphylaxis 2022-0 SLE H 5-15 00:00: 00 MUSHROOM Allergy Active High Anaphylaxis 2022-0 SL EH 5-15 00:00: 00 SHELLFIS Allergy Active High Anaphylaxis 2022-0 SL EH H 5-15 CONTAINI 00:00: NG 00 PRODUCTS Aspirin Drug Active Anaphylaxis 2022-[address] Allergy 5-15 [facility] 00:00: Medical 00 Center Mushroom Drug Active Anaphylaxis 2022-[address] Allergy 5-15 [facility] 00:00: Medical 00 Center Shellfis Drug Active Anaphylaxis 2022-[address] h Allergy 5-15 [facility] Containi 00:00: Medical ng 00 Center Products CRANBERR Allergy Active High Anaphylaxis 2018- SL EH Y 2-01 00:00: 00 FISH Allergy Active High Swelling 2018- SLSL CONTAINI 2-01 NG 00:00: PRODUCTS 00 Cranberr Drug Active Anaphylaxis, 2019- [facility] y Allergy Hives, 2- [facility] Itching 00:00: Medical 00 Center Fish Drug Active Swelling 2018- [facility] Containi Allergy 2-01 [facility] ng 00:00: Medical Products 00 Center Social History Social Habit Start Date Stop Date Quantity Comments Source Gender identity [facility]it y [facility] Sexual orientation Univer sity of [facility] History SDOH [facility] Alcohol Std Drinks Medica l Center History SDOH [facility] Alcohol Comment Medical C enter History SDOH [facility] Transport Non-Med Medical Center History of Social 2022-11-26 2022-11-26 Univers ity of function 00:00:00 00:00:00 [facility] Cigarettes smoked 2022-11-24 2022-11-24 Univers ity of current (pack per 00:00:00 00:00:00 [place] ) - Reported Branch Cigarette 2022-11-24 2022-11-24 University of pack-years 00:00:00 00:00:00 [facility] Tobacco use and 2022-11-24 2022-11-24 Smokeless Universit y of exposure 00:00:00 00:00:00 tobacco non-user [facility] dicky Branch Alcohol intake 2022-11-24 2022-11-24 Ex-drinker University 00:00:00 00:00:00 (finding) [facility] History of tobacco 2022-11-03 Passive smoker Un iversity of use 00:00:00 [place] [facility] History [facility] 2022-08-06 2022-08-[address] [facility] Transport Med 00:00:00 00:00:[address] [facility] 2022-08-06 2022-08-[address] [facility] Housing Unable to 00:00:00 00:00:00 Medical Center Pay History [facility] 2022-08-06 2022-08-[address] [facility] Housing Places 00:00:00 00:00:00 Medical Ce nter Lived History [facility] 2022-08-06 2022-08-[address] [facility] Housing Homeless 00:00:00 00:00:00 Medical Center Last Year History [facility] 2019-02-15 2019-02-[address] [facility] Alcohol Binge 00:00:00 00:00:[address] History [facility] 2019-02-15 2019-02-[address] [facility] Alcohol Frequency 00:00:00 00:00:00 Medical Center Sex [birth year] Universit y of 00:00:00 00:00:00 [facility] Smoking Status Start Date Stop Date Source Ex-smoker 2022-11-24 00:00:00 2022-11-24 University o f [place] 00:00:00 [facility] Branch Occasional tobacco 2022-07-30 00:00:00 [facility] smoker Center Medications Ordered Filled Start Stop Current Ordering Indication Dosage Frequency Signature Comments Components Source Medication Medication Date Date Medication? Clinician (SIG) Name Name KCL Yes 20meq 20 mEq, Univers (KLOR-CON 9-14 Oral, ity of M20) tablet 14:00: DAILY, [facility] 20 mEq 00 First dose Medical on Vivian Branch 11/29/22 at 0900, [facility] Routine QUEtiapine Yes 25mg Take 1 Unive rs 25 mg 9-13 tablet by ity of tablet 21:49: mouth in [place] [id number] the Medical morning Branch and 1 tablet in the evening. furosemide Yes 20mg Take 1 Unive rs (LASIX) 20 9-13 tablet by ity of mg tablet 21:49: mouth in [facility] 46 the Medical morning. Branch QUEtiapine Yes 25mg Take 1 Unive rs 25 mg 9-13 tablet by ity of tablet 21:49: mouth in [place] 46 the Medical morning Branch and 1 tablet in the evening. furosemide 2022-0 Yes 20mg Take 1 Unive rs (LASIX) 20 11-28 tablet by ity of mg tablet 21:49: mouth in [facility] s 46 the Medical morning. Branch [...] tablet in the evening. amLODIPine 2022-0 Yes [id number] 2.5mg Take 1 Univers 2.5 mg 11-28 tablet by ity of tablet 00:00: mouth in [place] 00 the Medical morning. Branch metoprolol 2022-0 Yes [id number] 12.5mg Take 0.5 Univers tartrate 25 9-13 tablets by it y of mg tablet 00:00: [place] 00 the Medical morning Branch and 0.5 tablets in the evening. atorvastati Yes [id number] 40mg Take 1 Univers n 40 mg 9-13 tablet by ity of tablet 00:00: mouth at [place] 00 bedtime. Medical Branch amLODIPine 0 Yes [id number] 2.5mg Take 1 Univers 2.5 mg 9-13 tablet by ity of tablet 00:00: mouth in [place] 00 the Medical morning. Branch metoprolol Yes [id number] 12.5mg Take 0.5 Univers tartrate 25 9-13 tablets by it y of mg tablet 00:00: [place] 00 the Medical morning Branch and 0.5 tablets in the evening. atorvastati Yes [id number] 40mg Take 1 Univers n 40 mg 9-13 tablet by ity of tablet 00:00: mouth at [place] 00 bedtime. Medical Branch HYDROcodone Yes 1{tbl} 1 tablet, Univers -acetaminop 11-27 Oral, ity of hen (NORCO 21:16: Q6HPRN, [place] 5) 5-325 mg 22 Starting Medi wale tablet 1 on [facility] tablet 11/27/22 at 1616, Until Discontinu ed, Routine, Pain (scale 4-6) acetaminoph Yes 650mg 650 mg, Un yoana en 11-27 Oral, ity of (TYLENOL) 21:12: Q6HPRN, [place] tablet 650 39 Starting Medic al mg on [facility] Branch 11/27/22 at 1612, Until Discontinu ed, Routine, Pain (scale 1-3) nitroglycer 2022- No [id number] .8mg 0.8 mg, Univers in 11-27 Sublingual ity of (NITROSTAT) 20:15: 19:15 , ONCE, 1 [place] sublingual 00 :00 dose, On Medic al tablet 0.8 [facility] Branch mg 11/27/22 at 1515, KASSIDY iopamidol 2022- No [id number] 80mL 80 mL, U nivers (ISOVUE 9-12 [...] dose, On Medic al mg tablet 1 [facility] tablet 11/26/22 at 1345, Routine metoprolol Yes 12.5mg 12.5 mg, U nivers tartrate 11-26 Oral, BID, ity o f (LOPRESSOR) 13:00: First dose [place] tablet 12.5 00 on Mon Medica l mg 11/26/22 at Branch 0800, Until Discontinu ed, Routine perflutren 2022- No [id number] 3mL 3 mL, IV Univers protein-A 11-25 Push, ity of microsphr 15:00: 15:00 ONCE, 1 [place] (OPTISON) 00 :00 dose, On Medica l injection 3 [place] Branch mL 11/25/22 at 1000, Routine pantoprazol Yes 40mg 40 mg, Univ ers e 11-25 Oral, ity of (PROTONIX) 14:00: DAILY, [place] EC tablet 00 First dose Medi wale 40 mg on [place] Branch 11/25/22 at 0900, Until Discontinu ed, Routine clopidogreL 2022- No 75mg 75 mg, Uni vers (PLAVIX) 75 11-25 Oral, ity of mg tablet 14:00: 14:47 DAILY, [place] 75 mg 00 :08 First dose Medical on [place] Branch 11/25/22 at 0900, Until Discontinu ed, [...] First dose [place] mg 00 on [facility] Medical 11/24/22 at Branch 2100, Until [...] e, Dosing and Testing: &nbs p;FOR [facility] ONLY &nbs p; - [...] mouth Center nightly. metroNIDAZO 2022- No 500mg [id number] Take [address] [facility] (FLAGYL) 08-03 [id number] tablet [facility] 500 MG 00:00: 00:00 3D [...] mouth Medica l tablet 09 :00 daily. [place] divalproex 2018-03 Yes epilepsy 125mg QD Take [address] (DEPAKOTE) 2-04 mg by Lukes 125 MG EC 10:36: mouth Medical tablet 04 daily. [place] divalproex 2018-03 Yes epilepsy 125mg QD Take [address] (DEPAKOTE) 2-04 mg by Lukes 125 MG EC 10:36: mouth Medical tablet 04 daily. [place] divalproex 2018-03 Yes epilepsy 125mg QD Take [address] (DEPAKOTE) 2-04 mg by Lukes 125 MG EC 10:36: mouth Medical tablet 04 daily. [place] famotidine 2018-03 Yes 1{tbl} Take 1 [facility] [...] Source Respiratory rate 2022-11-29 01:59:00 18 /min [facility] Oxygen saturation in 2022-11-29 01:59:00 93 /min [facility] Arterial blood by [facility] Pulse oximetry Branch Systolic blood 2022-11-29 01:23:00 126 mm[Hg] [facility] Diastolic blood 2022-11-29 01:23:00 75 mm[Hg] [facility] Heart rate 2022-11-29 01:23:00 72 /min [facility] Body temperature 2022-11-29 01:23:00 36.94 Nahomi [facility] Body weight 2022-11-28 05:16:00 70.421 kg [facility] BMI 2022-11-28 05:16:00 28.40 kg/m2 [facility] Body height 2022-11-24 16:52:00 157.5 cm [facility] WEIGHT 2022-11-12 07:05:00 74.6 kg WEIGHT 2022-11-11 [...] cm Heart rate 2022-08-11 12:33:33 76 /min [facility] Respiratory rate 2022-08-11 12:33:33 18 /min [facility] Oxygen saturation in 2022-08-11 12:33:33 97 /min [facility] Arterial blood by Medical Ce nter Pulse oximetry Body temperature 2022-08-11 12:33:11 36.56 Nahomi [facility] Systolic blood 2022-08-11 12:32:45 129 mm[Hg] [facility] Diastolic blood 2022-08-11 12:32:45 80 mm[Hg] [facility] Body height 2022-08-05 19:35:00 157.5 cm [facility] Body weight 2022-08-05 19:35:00 58.968 kg [facility] BMI 2022-08-05 19:35:00 23.78 kg/m2 [facility] Procedures Procedure Date / Time Performing Clinician Source Performed MAGNESIUM 2022-11-28 09:22:00 Casi Maddox [facility] BASIC METABOLIC PANEL 2022-11-28 09:22:00 Casi Maddox [facility] (NA, K, CL, CO2, Medical Branch GLUCOSE, BUN, CREATININE, CA) CBC WITH DIFF 2022-11-28 09:22:00 Casi Maddox [facility] CT ANGIOGRAPHY 2022-11-27 19:24:21 Tori Hanna [facility] CORONARIES WITH CARDIAC [facility] Branch CALCIUM SCORE CT HEAD WO CONTRAST 2022-11-27 17:24:05 Milagros Choe [facility] CBC WITHOUT DIFF 2022-11-27 09:15:00 Joel Willis [facility] MAGNESIUM 2022-11-26 09:21:00 [facility] 2022-11-26 09:21:00 Joel Willis [facility] ([id number]) (ALB,T.PRO,BILI Medical Branch T,BU/BC,ALT,AST,ALK PHOS) BASIC METABOLIC PANEL 2022-11-26 09:21:00 Paul [facility] (NA, K, CL, CO2, Medical Branch GLUCOSE, BUN, CREATININE, CA) CBC WITH DIFF 2022-11-26 09:21:00 [facility] ACTIVATED PARTIAL 2022-11-25 22:48:00 Lazaro [facility] EKG-12 LEAD 2022-11-25 17:52:00 [facility] TROPONIN I 2022-11-25 17:51:00 Philip [facility] ROUTINE & RHYTHM 2022-11-25 17:39:36 Joel Willis [facility] STRIP [facility] ACTIVATED PARTIAL 2022-11-25 15:42:00 Lazaro [facility] TRANSTHORACIC ECHO (TTE) 2022-11-25 14:57:34 Joel Willis [facility] COMPLETE W/ CONTRAST Medical [facility] MAGNESIUM 2022-11-25 09:20:00 Lazaro [facility] BASIC METABOLIC PANEL 2022-11-25 09:20:00 Joel Willis [facility] (NA, K, CL, CO2, Medical Branch GLUCOSE, BUN, CREATININE, CA) URINE DRUG (IMMUNOASSAY) 2022-11-25 07:32:00 Joel Willis [facility] - COMPREHENSIVE DRUG Medical [facility] SCREEN GC & CHLAMYDIA AMPLIFIED 2022-11-25 07:32:00 Joel Willis [facility] ASSAY [facility] URINE DRUG (LCMSMS) - 2022-11-25 07:32:00 Joel Willis [facility] SYNTHETIC OPIATES PANEL Medical Branch CBC WITHOUT DIFF 2022-11-25 07:31:00 Lazaro [facility] ACTIVATED PARTIAL 2022-11-25 07:31:00 Lazaro [facility] URINALYSIS 2022-11-25 07:31:00 Lazaro [facility] MAGNESIUM 2022-11-25 01:31:00 [facility]OLIC PANEL 2022-11-25 01:31[facility]00 [facility] (NA, K, CL, CO2, Medical Branch GLUCOSE, BUN, CREATININE, CA) ACTIVATED PARTIAL 2022-11-25 01:31:00 Lazaro [facility] TROPONIN I 2022-11-24 23:01:00 Lazaro [facility] BLOOD CULTURE SCREEN 2022-11-24 22:57:00 Lazaro [facility] XR CHEST 1 VW 2022-11-24 21:30:59 Lazaro [facility] US ABDOMEN LIMITED 2022-11-24 21:30:31 Joel Willis [facility] XR CHEST 1 VW 2022-11-24 20:37:00 Lazaro [facility] CT HEAD WO CONTRAST 2022-11-24 18:42:54 Lazaro [facility] ACTIVATED PARTIAL 2022-11-24 17:43:00 Lazaro [facility] CBC WITH DIFF 2022-11-24 16:39:00 Lazaro [facility] MRSA / MSSA SCREEN BY 2022-11-24 16:39:00 Lazaro [facility] PCR, NARES [facility] TROPONIN I 2022-11-24 16:34:00 Lazaro [facility] THYROID STIMULATING 2022-11-24 16:34:00 Lazaro [facility] HORMONE [facility] HEPATIC FUNCTION PANEL 2022-11-24 16:34:00 Joel Willis [facility] ([id number]) (ALB,T.PRO,BILI Medical Branch T,BU/BC,ALT,AST,ALK PHOS) BASIC METABOLIC PANEL 2022-11-24 16:34:00 Lazaro [facility] (NA, K, CL, CO2, Medical Branch GLUCOSE, BUN, CREATININE, CA) LIPID PANEL 2022-11-24 16:34:00 Lazaro [facility] ([id number])(TOTAL Medical Branch CHOLESTEROL, TRIGLYCERIDES, HDL) GLYCOSYLATED HEMOGLOBIN 2022-11-24 16:34:00 Joel Willis [facility] (A1C) [facility] PROTHROMBIN TIME / INR 2022-11-24 16:34:00 Joel Willis [facility] HEPATITIS B SURFACE 2022-11-24 16:34:00 Lazaro [facility] ANTIBODY Medical Branch HEPATITIS B SURFACE 2022-11-24 16:34:00 Lazaro [facility] ANTIGEN [facility] HCV ANTIBODY 2022-11-24 16:34:00 Lazaro [facility] HEPATITIS A VIRUS 2022-11-24 16:34:00 [facility]ODY IGM [facility] N-TERMINAL PRO-BNP 2022-11-24 16:34:00 Lazaro [facility] HIV 1/2 AG-AB WITH 2022-11-24 16:34:00 Lazaro [facility] REFLEX [facility] EKG-12 LEAD 2022-11-24 16:22[facility] BASIC METABOLIC PANEL 2022-08-11 04:41:00 Clifton De Luna [facility] MAGNESIUM 2022-08-11 04:41:00 Kristin Shah [facility] CALCIUM, IONIZED 2022-08-11 04:41:00 [facility] PHOSPHORUS 2022-08-11 04:41:00 [facility] CBC W/PLT COUNT & AUTO 2022-08-11 04:41:00 [facility] DIFFERENTIAL [place] CBC W/PLT COUNT & AUTO 2022-08-11 04:41:00 [facility] BASIC METABOLIC PANEL 2022-08-10 16:09:00 [facility] SODIUM, RANDOM URINE 2022-08-10 09:33:00 [facility] UREA NITROGEN, RANDOM 2022-08-10 09:33:[address] [facility] URINE [facility] CREATININE, RANDOM URINE 2022-08-10 09:33:00 [facility] OSMOLALITY, URINE 2022-08-10 09:33:00 [facility] TSH/FREE T4 IF INDICATED 2022-08-10 09:33:00 [facility] CORTISOL 2022-08-10 09:33:00 [facility] OSMOLALITY, SERUM 2022-08-10 09:33:00 [facility] T4, FREE 2022-08-10 09:33:00 [facility] CBC (HEMOGRAM ONLY) 2022-08-10 05:06:00 [facility] BASIC METABOLIC PANEL 2022-08-10 05:06:00 [facility] MAGNESIUM 2022-08-10 05:06:00 [facility] CBC (HEMOGRAM ONLY) 2022-08-09 03:38:00 [facility] BASIC METABOLIC PANEL 2022-08-09 03:38:00 [facility] MAGNESIUM 2022-08-09 03:38:00 [facility] CBC (HEMOGRAM ONLY) 2022-08-08 04:25:00 [facility] BASIC METABOLIC PANEL 2022-08-08 04:25:00 [facility] B-TYPE NATRIURETIC 2022-08-08 04:25:00 [facility] Medical FACTOR (BNP) [facility] STD PANEL - CT/GC RNA 2022-08-07 16:52:00 Higinio [facility] FUNGUS CULTURE + SMEAR 2022-08-07 10:22:[address] [facility] ANAEROBIC CULTURE 2022-08-07 10:22:[address] [facility] WOUND CULTURE + GRAM 2022-08-07 10:22:00 [facility] STAIN [facility] RADIOLOGIC GUIDANCE & 2022-08-07 10:20:00 [facility] INTERP/SPEC [facility] BASIC METABOLIC PANEL 2022-08-07 03:42:00 [facility] CBC (HEMOGRAM ONLY) 2022-08-07 03:41:00 [facility] ABDOMEN/PELVIS WITH 2022-08-06 00:22:00 Aida Alcala I [facility] IV CONTRAST [facility] SCREEN, URINE 2022-08-05 21:06:00 OnRonal day [facility] CBC W/PLT COUNT & AUTO 2022-08-05 20:40:00 Aida Alcala [facility] DIFFERENTIAL [facility] BASIC METABOLIC PANEL 2022-08-05 20:40:00 [facility]OT[facility]/INR 2022-08-05 20:40:00 [facility] TYPE AND SCREEN, 2022-08-05 20:40:00 Aida Alcala [facility] AUTOMATED [facility] CBC W/PLT COUNT & AUTO 2022-08-05 20:40:00 [facility] DIFFERENTIAL [facility] (CELLAVISION MANUAL 2022-08-05 20:40:00 [facility]) [facility] TRANSTHORACIC ECHO FOR 2022-08-03 13:59:39 Unknown, Hl7 Doctor C [facility] RES[facility] Center BASIC METABOLIC PANEL 2022-08-03 04:31:00 [facility] CBC (HEMOGRAM ONLY) 2022-08-03 04:31:00 [facility] CBC W/PLT COUNT & AUTO 2022-08-02 13:09:00 [facility] BASIC METABOLIC PANEL 2022-08-02 13:09:00 [facility] CBC W/PLT COUNT & AUTO 2022-08-02 13:09:00 [facility] (CELLAVISION MANUAL 2022-08-02 13:09:00 [facility] [place] MYOCARDIAL PERFUSION 2022-08-01 13:31:00 [facility] SPECT, PHARM [facility] TREADMILL 2022-08-01 11:39:56 Unknown, 7 [facility](NON-NUCLEAR Center TREADMILL) ECG 12-LEAD 2022-08-01 10:14:26 Unknown, 7 [facility] ECG 12-LEAD 2022-08-01 10:14:26 Unknown, 7 [facility] ECG 12-LEAD 2022-08-01 10:13:38 Unknown, 7 [facility] ECG 12-LEAD 2022-08-01 10:13:38 Unknown, 7 [facility] CBC W/PLT COUNT & AUTO 2022-08-01 04:47:00 Leonid Harris [facility] BASIC METABOLIC PANEL 2022-08-01 04:47:00 Leonid Harris [facility] MAGNESIUM 2022-08-01 04:47:00 Leonid Harris [facility] PHOSPHORUS 2022-08-01 04:47:00 Leonid Harris [facility] HEMOGLOBIN A1C 2022-08-01 04:47:00 Count Includes [facility] PT/APTT 2022-08-01 04:47:00 [facility] HCG, QUANTITATIVE, 2022-08-01 04:47:00 [facility] Center TYPE AND SCREEN, 2022-08-01 04:47:00 Leonid Harris [facility] AUTOMATED Center CBC W/PLT COUNT & AUTO 2022-08-01 04:47:00 Leonid Harris [facility] DIFFERENTIAL Center (CELLAVISION MANUAL 2022-08-01 04:47:00 Leonid Harris [facility] DIFF) Center 2D ECHO W/ DOPPLER 2022-07-31 15:20:04 [facility] (CW/PW/COLOR) [facility] ECG 12-LEAD 2022-07-31 15:01:36 [facility] ECG 12-LEAD 2022-07-31 15:01:36 Unknown, Hl7 [facility] US ENDOVAGINAL EV 2022-07-31 12:52:00 [facility] US PELVIS 2022-07-31 12:52:00 [facility] US DOPPLER 2022-07-31 12:52:00 [facility] BASIC METABOLIC PANEL 2022-07-31 03:09:00 [facility] MAGNESIUM 2022-07-31 03:09:00 [facility] PHOSPHORUS 2022-07-31 03:09:00 [facility] CBC W/PLT COUNT & AUTO 2022-07-31 03:09:00 [facility] LIPID PANEL 2022-07-31 03:09:00 [facility] CBC W/PLT COUNT & AUTO 2022-07-31 03:09:00 FutalaDewayne vazquez Pis [facility] DIFFERENTIAL An Center XR CHEST 1 VIEW PORTABLE 2022-07-30 16:42:00 Dewayne Reilly P is [facility] Medical / BEDSIDE An Center CBC W/PLT COUNT & AUTO 2022-07-30 15:38:00 Dewayne Reilly [facility] DIFFERENTIAL An Center BASIC METABOLIC PANEL 2022-07-30 15:38:00 Dewayne Reilly [facility] Medical An Center PROTHROMBIN TIME/INR 2022-07-30 15:38:00 Dewayne Reilly Pis [facility] Medical An Center MAGNESIUM 2022-07-30 15:38:00 [facility] An Center CBC W/PLT COUNT & AUTO 2022-07-30 15:38:00 Dayron Foster [facility] Medical DIFFERENTIAL [facility] Plan of Care Planned Activity Planned Date Details Comments Source Future Scheduled 2025-07-31 Lipid panel (procedure) [facility] Test 00:00:00 [code = 37271119] Medical Ce nter Future Scheduled 2022-11-16 Influenza [...] [facility] 00:00:00 [code = 39641288] Medical Ce nter Future Scheduled 2021-03-18 DEPRESSION [...] cervix Medical C enter (procedure) [code = 159025771] Future Scheduled 1997 Screening for malignant [facility] 00:00:00 neoplasm of cervix Medical C enter (procedure) [code = 418776083] Future Scheduled 1995 DTAP/TDAP/TD VACCINES (1 [facility] [...] screening [facility] Cent er (procedure) [code = 751041729] Future Scheduled [address] [...] colon Medical Ce nter (procedure) [code = 135068734] Future Scheduled 1976 Screening for malignant [facility] 00:00:00 neoplasm of colon Medical Ce nter (procedure) [code = 966276382] Future Scheduled 1976 Screening for malignant [facility] 00:00:00 neoplasm of colon Medical Ce nter (procedure) [code = 232759370] Future Scheduled 1976 Screening for malignant [facility] 00:00:00 neoplasm of colon Medical Ce nter (procedure) [code = 144380302] Future Scheduled 1976 Sigmoidoscopy [facility]code = [facility]] Medical Cente r Future Scheduled 1976 CT Colonography (combo) [facility] Test 00:00:00 [code = CT Colonography [facility] (combo)] Future Scheduled 1976 Screening for malignant [facility] Test 00:00:00 neoplasm of colon Medical Ce nter (procedure) [code = 212871572] Future Scheduled 1976 Screening for malignant [facility] Test 00:00:00 neoplasm of colon Medical Ce nter (procedure) [code = 236900489] Future Scheduled 1976 Screening for malignant [facility] Test 00:00:00 neoplasm of colon Medical Ce nter (procedure) [code = 462033649] Future Scheduled 1976 Screening for malignant [facility] Test 00:00:00 neoplasm of colon Medical Ce nter (procedure) [code = 576133637] Future Scheduled 1976 Sigmoidoscopy [facility]code [facility]oscopy] Medical Cente r Encounters Start End Encounter Admission Attending Care Care Encounter Source Date/Time Date/Time Type Type Clinicians Facility Department ID 2022-11-07 Inpatient ER ZAHRA PASCUAL [facility] [id number] [facility] 19:39:43 2022-11-06 Inpatient ER SUSIE TAI [facility] [id number] [facility] 11:21:11 2022-11-06 Inpatient ER SUSIE TAI [facility] [id number] [facility] 10:39:32 2022-11-05 Inpatient ER SUSIE TAI [facility] [id number] [facility] 13:31:19 2022-11-03 Inpatient ER SUSIE TAI [facility] [id number] [facility] 10:45:25 2022-11-01 Inpatient ER SLEH [facility] [id number] [facility] 09:28:17 2022-11-01 Inpatient ER SLEH [facility] [id number] [facility] 09:11:47 2022-10-31 Inpatient ER BERSHAD, [facility] [id number] [facility] 00:51:03 KATHY 2022-10-31 Inpatient ER BERSHAD, [facility] [id number] [facility] 00:50:54 KATHY 2022-10-30 Inpatient ER SLEH [facility] [id number] [facility] 15:54:13 2022-10-30 Inpatient ER BERSHAD, [facility]H [facility] [id number] [facility] 09:14:25 KATHY 2022-10-30 Inpatient ER BERSHAD, [facility]H [facility] [id number] [facility]H 05:26:11 KATHY 2022-10-29 Inpatient ER BERSHAD, [facility]H [facility] [id number] [facility] 17:09:25 KATHY 2022-10-29 Inpatient ER TEXTONIE, SLE [facility]H [id number] SLEH 03:50:03 MURRAY 2022-12-27 2022-12-27 Outpatient SFA SFA [id number] Martin 10:33:43 10:33:43 1012 F Tello 2022-11-29 2022-11-29 Transition MONSE Sotelo [id number] [facility] 00:00:00 00:00:00 of Care Desi REDDY 350.1.13.10 ity of KARINA 4.2.7.2.686 David vitale [id number] [place] [address] [place] 2022-11-24 2022-11-28 [facility] [place] [id number] [facility] 11:15:00 21:45:00 Encounter Ryne Yoder 350.1.13.1 0 ity [facility] 4.2.7.2.686 [place] [phone] [place] [address] [place] 2022-11-24 2022-11-28 Inpatient U BEBA [facility] [id number] Univers 11:15:00 21:45:00 [facility] 2022-11-28 Inpatient Johnny YODER [facility] [id number] Univers 11:15:00 21:45:00 [facility] 2022-10-29 2022-11-13 Inpatient ER , [facility] [id number] SLEH 02:56:00 21:30:00 GOYO 2022-11-06 2022-11-06 Inpatient ER SLEH SLEH [id number] SLEH 08:32:27 00:00:00 2022-11-05 2022-11-05 Outpatient SLEH SLEH [id number] [facility]H 00:00:00 00:00:00 2022-11-05 2022-11-05 Outpatient SLEH SLEH [id number] [facility]H 00:00:00 00:00:00 2022-11-02 2022-11-02 Inpatient ER SUSIE TAI [facility] [id number] SLEH 10:58:08 00:00:00 2022-10-29 2022-10-29 Inpatient ER PITTARD, SLEH SLEH [id number] SLEH 10:12:32 23:59:00 MURRAY 2022-10-29 2022-10-29 Inpatient ER PITTARD, SLEH SLEH [id number] SLEH 10:12:49 00:00:00 MURRAY 2022-10-29 2022-10-29 Inpatient ER PITTARD, SLEH SLEH [id number] SLEH 10:12:41 00:00:00 MURRAY 2022-08-12 2022-08-[address] [facility]Kelly [id number] [facility] 00:00:00 00:00:00 [facility] 2022-08-05 2022-08-11 Inpatient ER PABLO[facility] [id number] [facility]H 18:09:00 14:47:00 [facility] 2022-08-05 2022-08-11 [facility] ER Popeye Mcneal [facility] [id number] 18:09:00 14:47:[address] [facility], [facility] Pablo Kristin [place] 2022-08-05 2022-08-05 Travel [facility] [id number] [facility] 00:00:00 [facility] 2022-07-31 2022-08-03 Inpatient UR ANNAMARIE [facility] [id number] SLE 04:37:00 20:00:00 [facility] 2022-07-31 2022-08-03 [facility] UR Les Al [facility] [id number] [facility] St 04:37:00 20:00:00 Encounter Nena Waller [facility] Leonid Harris [place] 2022-07-30 2022-07-31 Inpatient ER [facility], [facility] Gynecology [id number] [facility] 14:07:00 04:04:00 [place] 2022-07-30 2022-07-31 [facility] ER [facility], [facility] [id number] [facility] [address] 14:07:00 04:04:00 Encounter Dayron [facility] 2022-07-31 2022-07-31 Orders [facility] [id number] [facility] [address] 00:00:00 00:00:00 Only [facility] 2022-07-30 2022-07-30 Travel [facility] [id number] [facility] 00:[facility]:00 00:00:00 [facility] Results Test Description Test Time Test Comments Results Result Comments Source HEPATIC FUNCTION PANEL (20481) (ALB,T.PRO,BILI 2022-11-26 13 :08:17 T,BU/BC,ALT,AST,ALK PHOS) Test Item Value Reference Range Interpretation Comme nts TOTAL BILI (test code = 5573740174) 0.9 mg/dL 0.1-1.1 BILI UNCON (test code = 5785607847) 0.6 mg/dL 0.1-1.1 BILI CONJ (test code = 8276504894) 0.0 mg/dL 0.0-0.3 T PROTEIN (test code = 9837867676) 6.5 g/dL 6.3-8.2 ALBUMIN (test code = 2282218486) 4.0 g/dL 3.5-5.0 ALK PHOS (test code = 9525997183) 527 U/L 34-122 H ALTv (test code = 1742-6) 116 U/L 5-35 H AST(SGOT) (test code = 4922774593) 76 U/L 13-40 H Lab Interpretation (test code = 18206-7) Abnormal [facility] METABOLIC PANEL (NA, K, CL, CO2, GLUCOSE, BUN, CREATININE, CA)2022-11-26 10:08:01 Test Item Value Reference Range Interpretation Comments NA (test code = 136 mmol/L 135-145 8313454359) K (test code = 4.1 mmol/L 3.5-5.0 0909128124) CL (test code = 100 mmol/L 98-108 8373939458) CO2 TOTAL (test code 28 mmol/L 23-31 = 9854282930) AGAP (test code = 8 2-16 1785596440) BUN (test code = 17 mg/dL 7-23 5583350977) GLUCOSE (test code = 87 mg/dL 70-110 6132824225) CREATININE (test code 1.00 mg/dL 0.50-1.04 = 0507908968) CALCIUM (test code = 9.3 mg/dL 8.6-10.6 2593671321) eGFR (test code = 59.7 mL/min/1.73m2 1102355583) SUE (test code = SUE) Association of [...] or urine or abnormalities in imaging tests). [facility] 10:08:01 Test Item Value Reference Range Interpretation Comments MAGNESIUM (test code = 4639551747) 1.8 mg/dL 1.7-2.4 Lab Interpretation (test code = Normal 33949-8) [facility] WITH [id number] 09:36:22 Test Item Value Reference Range Interpretation Comments WBC (test code = 4.18 See_Comment L [Automated 6690-2) message] The sy stem which generated this result transmitted reference range : 4.30 - 11.10 10*3/?L. The reference range was not used to interpret this result as normal/abnormal . RBC (test code = 3.39 See_Comment L [Automated 879-8) message] The sy stem which generated this [...] RDW-SD (test code = 42.7 fL 39.0-49.9 21935-4) RDW-CV (test code = 12.5 % 12.0-15.5 788-0) PLT (test code = 151 See_Comment L [Automated 777-3) message] The sy stem which generated this result transmitted reference range : 166 - 358 10*3/ ?L. The reference r elizabeth was not used to interpret this result as normal/abnormal . MPV (test code = 9.4 fL 9.5-12.9 L 72240-5) NRBC/100 WBC (test 0.0 See_Comment [Automat ed code = 7311830172) message] The system which generated this result transmitted reference range : 0.0 - 10.0 /100 WBCs. The refer ence range was not u sed to interpret th is result as normal/abnormal . NRBC x10^3 (test code See_Comment [Auto mated = 3561214404) message] The s ystem which generated this result transmitted reference range : 10*3/?L. The reference range was not used to interpret this result as normal/abnormal . GRAN MAT (NEUT) % 68.0 % (test code = 770-8) IMM GRAN % (test code 0.00 % = 5287093468) LYMPH % (test code = 17.7 % 736-9) MONO % (test code = 9.1 % 5905-5) EOS % (test code = 4.5 % 713-8) BASO % (test code = 0.7 % 706-2) GRAN MAT x10^3(ANC) 2.84 10*3/uL 1.88-7.09 (test code = 4047973075) IMM GRAN x10^3 (test 0.00-0.06 code = 9529537805) LYMPH x10^3 (test code 0.74 10*3/uL 1.32-3.29 L = 731-0) MONO x10^3 (test code 0.38 10*3/uL 0.33-0.92 = 742-7) EOS x10^3 (test code = 0.19 10*3/uL 0.03-0.39 711-2) BASO x10^3 (test code 0.03 10*3/uL 0.01-0.07 = 704-7) Lab Interpretation Abnormal (test code = 48184-5) [facility] METABOLIC PANEL (NA, K, CL, CO2, GLUCOSE, BUN, CREATININE, CA)2022-11-25 09:47:18 Test Item Value Reference Range Interpretation Comments NA (test code = 135 mmol/L 135-145 6471959857) K (test code = 5.0 mmol/L 3.5-5.0 Slight 8623100671) hemolysis CL (test code = 100 mmol/L 98-108 4969652335) CO2 TOTAL (test code 28 mmol/L 23-31 = 6137789503) AGAP (test code = 7 2-16 0266409392) BUN (test code = 20 mg/dL 7-23 Slight 2867905940) hemolysis GLUCOSE (test code = 109 mg/dL 70-110 4024696371) CREATININE (test code 1.20 mg/dL 0.50-1.04 H = 7402589197) CALCIUM (test code = 9.2 mg/dL 8.6-10.6 1689974662) eGFR (test code = 48.4 mL/min/1.73m2 1651860853) SUE (test code = SUE) Association of [...] tests). Lab Interpretation Abnormal (test code = 32777-4) [facility] 09:42:55 Test Item Value Reference Range Interpretation Comments MAGNESIUM (test code = 7698457303) 3.1 mg/dL 1.7-2.4 H Lab Interpretation (test code = Abnormal 75240-5) [facility] Center[facility]AT[facility]IS A VIRUS ANTIBODY [id number] 23:52:42 Test Item Value Reference Range Interpretation Comments HAVM 0.05 Semi-Quantitative (test code = 37687-1) SUE (test code = HAVAb IgM Interpretative SUE) Information: Reactive greater than or equal to 1.2 Biotin has been reported to cause a negative bias, interpret results relative to patient's use of biotin. [facility] Center[facility] [id number] 23:35:43 Test Item Value Reference Range Interpretation Comments TROPONIN I (test code = 0.911 ng/mL <=0.034 H 1535655681) USE (test code = SUE) Reference (Normal) Range [...] biotin. Lab Interpretation Abnormal (test code = 67643-7) [facility]2 AG-AB WITH [id number] 21:57:58 Test Item Value Reference Range Interpretation Comments HIV 0.12 Negative Semi-quantitative (test code = 87382-6) SUE (test code = Non-reactive for HIV-1 SUE) antigen and HIV-1/HIV-2 antibodies. ?No laboratory evidence of HIV infection. ?Repeat in 2-4 weeks if acute HIV infection is suspected. [facility] CenterHCV [id number] 21:57:58 Test Item Value Reference Range Interpretation Comments HCV Ab (test code = 39033-4) Negative HCV Semi-Quantitative (test code = 0.01 15619-4) [facility] Center[facility]AT[facility] SURFACE [id number] 21:57:58 Test Item Value Reference Range Interpretation Comments HBsAB (test code = Negative 9725580624) HBsAb 0.00 mIU/mL Semi-Quantitative (test code = 8150130341) SUE (test code = Interpretation: SUE) ?Hepatitis B Surface Antibody ? Negative - Patient is considered to be not immune to infection with HBV. ? ? Positive - Anti-HBs detected at greater than or equal to 12 mIU/mL. ?Patient is considered to be immune to infection with HBV. ? [facility] B SURFACE [id number] 21:40:35 Test Item Value Reference Range Interpretation Comments HBsAg Semi-Quantitative (test code = 0.14 Negative 5195-3) [facility] CenterGLYCOSYLATED HEMOGLOBIN (A1C)2022-11-24 18:18:35 Test Item Value Reference Range Interpretation Comments HGB A1C (test code = 4.6 % 4.0-5.7 4548-4) SUE (test code = SUE) Reference RangesNormal: <5.7%Prediabetes: 5.7 - 6.4%Diabetes: > 6.5% Lab Interpretation (test Normal code = 84354-8) [facility] CenterTHYROID STIMULATING [id number] 17:58:24 Test Item Value Reference Range Interpretation Comments TSH (test code = 2.03 See_Comment [Automated message] 7244342807) The system [employer] generated this result transmitted ref erence range: 0.45 - 4 .70 mIU/L. The refe rence range was not u sed to interpret this result as normal/abnor mal. Lab Interpretation (test Normal code = 11845-7) [facility] CenterTROP[facility]IN [id number] 17:39:48 Test Item Value Reference Range Interpretation Comments TROPONIN I (test code = 1.340 ng/mL <=0.034 H 0009768205) SUE (test code = SUE) Reference (Normal) [...] biotin. Lab Interpretation Abnormal (test code = 90605-6) [facility] CenterN-TERMINAL [id number] 17:39:48 Test Item Value Reference Range Interpretation Comments NT-proBNP (test code = 2520 pg/mL <=125 H 85265-3) SUE (test code = SUE) Positive: Heart Failure Likely Lab Interpretation (test Abnormal code = 92203-3) [facility] METABOLIC PANEL (NA, K, CL, CO2, GLUCOSE, BUN, CREATININE, CA)2022-11-24 17:30:04 Test Item Value Reference Range Interpretation Comments NA (test code = 135 mmol/L 135-145 1397993977) K (test code = 3.9 mmol/L 3.5-5.0 4072519195) CL (test code = 97 mmol/L 98-108 L 6953821406) CO2 TOTAL (test code = 27 mmol/L 23-31 4080420065) AGAP (test code = 11 2-16 0170874522) BUN (test code = 23 mg/dL 7-23 0707971984) GLUCOSE (test code = 163 mg/dL 70-110 H 4128968978) CREATININE (test code = 1.40 mg/dL 0.50-1.04 H 1009169047) CALCIUM (test code = 9.4 mg/dL 8.6-10.6 1903896995) eGFR (test code = 40.5 mL/min/1.73m2 4786542749) SUE (test code = SUE) Association of [...] tests). Lab Interpretation Abnormal (test code = 26550-6) [facility] CenterHEPAT[facility] FUNCTION PANEL (31214) (ALB,T.PRO,BILI T,BU/BC,ALT,AST,ALK PHOS)2022-11-24 17:30:04 Test Item Value Reference Range Interpretation Comments TOTAL BILI (test code = 4787344212) 1.0 mg/dL 0.1-1.1 BILI UNCON (test code = 8849129486) 0.6 mg/dL 0.1-1.1 BILI CONJ (test code = 0570993355) 0.0 mg/dL 0.0-0.3 T PROTEIN (test code = 5547642318) 6.8 g/dL 6.3-8.2 ALBUMIN (test code = 9101047144) 4.1 g/dL 3.5-5.0 ALK PHOS (test code = 5735613743) 746 U/L 34-122 H ALTv (test code = 1742-6) 183 U/L 5-35 H AST(SGOT) (test code = 4355726056) 196 U/L 13-40 H Lab Interpretation (test code = Abnormal 02203-3) [facility] CenterLIPID PANEL (88284)(TOTAL CHOLESTEROL, TRIGLYCERIDES, HDL)2022-11-24 17:30:04 Test Item Value Reference Range Interpretation Comments CHOL (test code = 2609012047) 113 mg/dL 120-200 L HDL (test code = 2180678362) 62 mg/dL >=50 HDLC RATIO (test code = 8614581299) 1.8 <=4.5 TRIG (test code = 3282697205) 71 mg/dL 30-170 LDL CHOL (test code = 70441-8) 37 mg/dL <=160 VLDL (test code = 1357564670) 14 mg/dL 5-60 Lab Interpretation (test code = Abnormal 94811-7) [facility] WITH [id number] 16:55:22 Test Item Value Reference Range Interpretation Comments WBC (test code = 6.05 See_Comment [Automated 5314-2) message] The sy stem which generated this result transmitted reference range : 4.30 - 11.10 10*3/?L. The reference range was not used to interpret this result as normal/abnormal . RBC (test code = 3.21 See_Comment L [Automated 748-8) message] The sy stem which generated this [...] RDW-SD (test code = 44.3 fL 39.0-49.9 86634-1) RDW-CV (test code = 12.9 % 12.0-15.5 788-0) PLT (test code = 203 See_Comment [Automated 777-3) message] The sy stem which generated this result transmitted reference range : 166 - 358 10*3/ ?L. The reference r elizabeth was not used to interpret this result as normal/abnormal . MPV (test code = 9.9 fL 9.5-12.9 95395-2) NRBC/100 WBC (test 0.0 See_Comment [Automat ed code = 7986444218) message] The system which generated this result transmitted reference range : 0.0 - 10.0 /100 WBCs. The refer ence range was not u sed to interpret th is result as normal/abnormal . NRBC x10^3 (test code See_Comment [Auto mated = 6376808907) message] The s ystem which generated this result transmitted reference range : 10*3/?L. The reference range was not used to interpret this result as normal/abnormal . GRAN MAT (NEUT) % 59.6 % (test code = 770-8) IMM GRAN % (test code 0.20 % = 7583530731) LYMPH % (test code = 28.3 % 736-9) MONO % (test code = 9.1 % 5905-5) EOS % (test code = 2.5 % 713-8) BASO % (test code = 0.3 % 706-2) GRAN MAT x10^3(ANC) 3.61 10*3/uL 1.88-7.09 (test code = 1158984120) IMM GRAN x10^3 (test 0.00-0.06 code = 3492055059) LYMPH x10^3 (test code 1.71 10*3/uL 1.32-3.29 = 731-0) MONO x10^3 (test code 0.55 10*3/uL 0.33-0.92 = 742-7) EOS x10^3 (test code = 0.15 10*3/uL 0.03-0.39 711-2) BASO x10^3 (test code 0.01-0.07 = 704-7) Lab Interpretation Abnormal (test code = 99180-9) [facility] CenterPOCT-[facility] [id number] 12:43:54 Test Item Value Reference Range Interpretation Comments POC-GLUCOSE METER 138 mg/dL 70-110 H : TESTED A T [facility] 6720 (BEAKER) (test code = [place], 1538) 94772: [employer] Engineer/Techni smiley ID = [id number] for MANDA ESPARZA [id number] 06:54:19 Test Item Value Reference Range Interpretation Comments PHOSPHORUS (BEAKER) (test code = 4.2 mg/dL 2.3-4.7 604) [employer] Engineer ID - [id number] 06:54:18 Test Item Value Reference Range Interpretation Comments MAGNESIUM (BEAKER) (test code = 1.7 mg/dL 1.6-2.6 627) [employer] Engineer ID - ADMINCBC W/PLT COUNT & AUTO [id number] 06:00:54 Test Item Value Reference Range Interpretation [...] PERCENT (BEAKER) (test code = 2801) POCT-GLUCOSE [id number] 21:38:27 Test Item Value Reference Range Interpretation Comments POC-GLUCOSE METER 88 mg/dL 70-110 : TESTED A T [facility] 6720 (BEAKER) (test code = [facility]) 57088: [employer] Engineer/Techni smiley ID = [id number] for NADEGE MORALES POCT-GLUCOSE [id number] 18:19:26 Test Item Value Reference Range Interpretation Comments POC-GLUCOSE METER 93 mg/dL 70-110 : TESTED A T [facility] 6720 (BEAKER) (test code = [facility], 153) 56099: [employer] Engineer/Techni smiley ID = [id number] for NONA REESE, MANDA POCT-GLUCOSE [id number] 13:13:27 Test Item Value Reference Range Interpretation Comments POC-GLUCOSE METER 91 mg/dL 70-110 : TESTED A T [facility] 6720 (BEAKER) (test code = [facility], 153) 11427: [employer] Engineer/Techni smiley ID = [id number] for MART MARY ANN, MANDA BLOOD [id number] 12:00:51 Test Item Value Reference Range Interpretation Comments CULTURE (BEAKER) (test No growth in 5 days code = 1095) BLOOD [id number] 12:00:51 Test Item Value Reference Range Interpretation Comments CULTURE (BEAKER) (test No growth in 5 days code = 1095) The specimen volume collected for this blood culture was below the optimum (10 mL per bottle or 20 mL total). Use of lower volumes may adversely affect recovery and/or detection times of some organisms.POCT-GLUCOSE [id number] 06:46:01 Test Item Value Reference Range Interpretation Comments POC-GLUCOSE METER 102 mg/dL 70-110 : TESTED A T [facility] 6720 (BEAKER) (test code = [place], 1538) 53623: [employer] Engineer/Techni smiley ID = [id number] for Teresa Rose [id number] 05:48:23 Test Item Value Reference Range Interpretation Comments MAGNESIUM (BEAKER) (test code = 1.8 mg/dL 1.6-2.6 627) [employer] Engineer ID - [id number] 05:48:23 Test Item Value Reference Range Interpretation Comments PHOSPHORUS (BEAKER) (test code = 3.6 mg/dL 2.3-4.7 604) [employer] Engineer ID - MARCOBASIC METABOLIC [id number] 05:48:22 Test Item Value Reference Range Interpretation [...] not appl icable for dialysis patien ts [employer] Engineer ID - MARCOCBC W/PLT COUNT & AUTO [id number] 05:10:47 Test Item Value Reference Range Interpretation [...] PERCENT (BEAKER) (test code = 2801) POCT-GLUCOSE [id number] 23:44:35 Test Item Value Reference Range Interpretation Comments POC-GLUCOSE METER 93 mg/dL 70-110 : TESTED A T [facility] 6720 (AKER) (test code = [facility], 153) 71808: [employer] Engineer/Techni smiley ID = [id number] for Teresa Camejo POCT-GLUCOSE [id number] 17:35:54 Test Item Value Reference Range Interpretation Comments POC-GLUCOSE METER 108 mg/dL 70-110 : TESTED A T [facility] 6720 (AKER) (test code = [facility], 153) 54424: [employer] Engineer/Techni smiley ID = [id number] for Donna Rolle BLOOD [id number] 17:01:46 Test Item Value Reference Range Interpretation Comments CULTURE (BEAKER) (test No growth in 5 days code = 1095) The specimen volume collected for this blood culture was below the optimum (10 mL per bottle or 20 mL total). Use of lower volumes may adversely affect recovery and/or detection times of some organisms.POCT-GLUCOSE [id number] 13:41:35 Test Item Value Reference Range Interpretation Comments POC-GLUCOSE METER 99 mg/dL 70-110 : TESTED A T [facility] 6720 (BEAKER) (test code = [facility], 153) 06348: [employer] Engineer/Techni smiley ID = [id number] for Jean Marie posada, Donna BLOOD [id number] 13:01:43 Test Item Value Reference Range Interpretation Comments CULTURE (BEAKER) (test No growth in 5 days code = 1095) POCT-GLUCOSE [id number] 07:21:17 Test Item Value Reference Range Interpretation Comments POC-GLUCOSE METER 110 mg/dL 70-110 : TESTED Oscar T [facility] 6720 (BEAKER) (test code = [place], 1538) 06808: [employer] Engineer/Techni smiley ID = [id number] for Teresa Rose BASIC METABOLIC [id number] 05:31:26 Test Item Value Reference Range Interpretation [...] (test code = 697) EGFR (BEAKER) 81 Interpretati on of eGFR (test code = [...] not appl icable for dialysis patien ts [employer] Engineer ID - [id number] 05:31:26 Test Item Value Reference Range Interpretation Comments MAGNESIUM (BEAKER) (test code = 2.0 mg/dL 1.6-2.6 627) [employer] Engineer ID - [id number] 05:31:26 Test Item Value Reference Range Interpretation Comments PHOSPHORUS (BEAKER) (test code = 3.6 mg/dL 2.3-4.7 604) [employer] Engineer ID - MARCOCBC W/PLT COUNT & AUTO [id number] 04:56:52 Test Item Value Reference Range Interpretation [...] PERCENT (BEAKER) (test code = 2801) POCT-GLUCOSE [id number] 00:26:59 Test Item Value Reference Range Interpretation Comments POC-GLUCOSE METER 135 mg/dL 70-110 H : TESTED A T [facility] 6720 (BEAKER) (test code = [facility]8) [address]: [employer] Engineer/Techni smiley ID = [id number] for Teresa Rose POCT-GLUCOSE [id number] 17:22:27 Test Item Value Reference Range Interpretation Comments POC-GLUCOSE METER 127 mg/dL 70-110 H : TESTED A T [facility] 6720 (BEAKER) (test code = [facility]8) 27084: [employer] Engineer/Techni smiley ID = [id number] for Um eh, [place] POCT-GLUCOSE [id number] 17:20:21 Test Item Value Reference Range Interpretation Comments POC-GLUCOSE METER 23 mg/dL 70-110 LL : TESTED A T [facility] 6720 (BEAKER) (test code = [facility], 1538) 20630: Scada Engineer/Techni smiley ID = [id number] for Umeh , Akumbu POCT-GLUCOSE [id number] 12:34:42 Test Item Value Reference Range Interpretation Comments POC-GLUCOSE METER 129 mg/dL 70-110 H : TESTED A T [facility] 6720 (BEAKER) (test code = [facility], [facility]8) 15909: Scada Engineer/Techni smiley ID = [id number] for Um eh, Akumbu [id number] 08:08:41 Test Item Value Reference Range Interpretation Comments MAGNESIUM (BEAKER) (test code = 1.9 mg/dL 1.6-2.6 627) Scada Engineer ID - YIAOSPEQFDJKGQP2034-48-06 08:08:41 Test Item Value Reference Range Interpretation Comments PHOSPHORUS (BEAKER) (test code = 3.5 mg/dL 2.3-4.7 604) Scada Engineer ID - ADMINBASIC METABOLIC [id number] 08:08:40 Test Item Value Reference Range Interpretation [...] not appl icable for dialysis patien ts Scada Engineer ID - ADMINPOCT-GLUCOSE [id number] 07:08:26 Test Item Value Reference Range Interpretation Comments POC-GLUCOSE METER 119 mg/dL 70-110 H : TESTED A T [facility] 6720 (BEAKER) (test code = AVINASH Dunn [facility], 1538) 25469: Scada Engineer/Techni smiley ID = [id number] for Teresa Rose CBC W/PLT COUNT & AUTO [id number] 06:25:01 Test Item Value Reference Range Interpretation [...] PERCENT (BEAKER) (test code = 2801) POCT-GLUCOSE [id number] 23:32:08 Test Item Value Reference Range Interpretation Comments POC-GLUCOSE METER 97 mg/dL 70-110 : TESTED A T [facility] 6720 (BEAKER) (test code = [facility], 1538) 73893: Scada Engineer/Techni smiley ID = [id number] for Teresa Camejo POCT-GLUCOSE [id number] 17:52:25 Test Item Value Reference Range Interpretation Comments POC-GLUCOSE METER 121 mg/dL 70-110 H : TESTED A T [facility] 67[address] ([facility]) (test code = [facility], 1538) 13057: Scada Engineer/Techni smiley ID = [id number] for An Donna lucas POCT-GLUCOSE [id number] 12:24:17 Test Item Value Reference Range Interpretation Comments POC-GLUCOSE METER 106 mg/dL 70-110 : TESTED A T [facility] [address] ([facility]) (test code = [facility], 153) 35725: Scada Engineer/Techni smiley ID = [id number] for An Donna lucas VANCOMYCIN LEVEL, [id number] 10:00:44 Test Item Value Reference Range Interpretation Comments VANCOMYCIN TROUGH ([facility]) (test 35.0 ug/mL 10.0-20.0 HH code = 522) Scada Engineer ID - ADMINPOCT-GLUCOSE [id number] 06:04:34 Test Item Value Reference Range Interpretation Comments POC-GLUCOSE METER 98 mg/dL 70-110 : TESTED A T [facility] [address] ([facility]) (test code = [facility], 153) 40300: Scada Engineer/Techni smiley ID = [id number] for Andi Warren [id number] 04:34:22 Test Item Value Reference Range Interpretation Comments PHOSPHORUS (BEAKER) (test code = 4.3 mg/dL 2.3-4.7 604) Scada Engineer ID - mmBASIC METABOLIC [id number] 04:34:21 Test Item Value Reference Range Interpretation [...] not appl icable for dialysis patien ts Scada Engineer ID - [id number] 04:34:21 Test Item Value Reference Range Interpretation Comments MAGNESIUM (BEAKER) (test code = 2.0 mg/dL 1.6-2.6 627) Scada Engineer ID - mmCBC W/PLT COUNT & AUTO [id number] 04:15:17 Test Item Value Reference Range Interpretation [...] PERCENT (BEAKER) (test code = 2801) POCT-GLUCOSE [id number] 00:10:22 Test Item Value Reference Range Interpretation Comments POC-GLUCOSE METER 102 mg/dL 70-110 : TESTED A T [facility] 6720 (BEAKER) (test code [facility], = 1538) 79723: Scada Engineer/Techni smiley ID = [id number] for Andi Warren BASIC METABOLIC [id number] 19:00:42 Test Item Value Reference Range Interpretation [...] not appl icable for dialysis patien ts Scada Engineer ID - JSPOCT-GLUCOSE [id number] 17:28:38 Test Item Value Reference Range Interpretation Comments POC-GLUCOSE METER 122 mg/dL 70-110 H : TESTED A T [facility] 6720 (BEAKER) (test code = [facility], 1538) 09160: Scada Engineer/Techni smiley ID = [id number] for An Candace lucasa POCT-GLUCOSE [id number] 12:36:44 Test Item Value Reference Range Interpretation Comments POC-GLUCOSE METER 110 mg/dL 70-110 : TESTED A T [facility] 6720 (BEAKER) (test code = [facility], 1538) 68652: Scada Engineer/Techni smiley ID = [id number] for An dermarium, Donna [id number] 06:20:37 Test Item Value Reference Range Interpretation Comments MAGNESIUM (BEAKER) (test code = 2.2 mg/dL 1.6-2.6 627) Scada Engineer ID - [id number] 06:20:37 Test Item Value Reference Range Interpretation Comments PHOSPHORUS (BEAKER) (test code = 3.9 mg/dL 2.3-4.7 604) Scada Engineer ID - ADMINBASIC METABOLIC [id number] 06:20:36 Test Item Value Reference Range Interpretation [...] not appl icable for dialysis patien ts Scada Engineer ID - ADMINPOCT-GLUCOSE [id number] 06:09:53 Test Item Value Reference Range Interpretation Comments POC-GLUCOSE METER 69 mg/dL 70-110 L : TESTED A T [facility] 6720 (BEAKER) (test code = [facility], 1538) 55748: Scada Engineer/Techni smiley ID = [id number] for Andi Warren CBC W/PLT COUNT & AUTO [id number] 05:15:05 Test Item Value Reference Range Interpretation [...] code = 2801) XR ABDOMEN/KUB 1 VIEW [id number] 21:59:17 [facility] 1975 Sex: FEXAM/TECHNIQUE: XR ABDOMEN/KUB 1 VIEW PORTABLEINDICATION: Confirm corpak placementCOMPARISON: 11/05/2022.FINDINGS: Feeding tube terminates in the distal stomach. No dilated loops of largesmall bowel. No acute osseous process. Lung bases are clear.IMPRESSION:Feeding tube terminates in the distal stomach.Electronically Signed By: Carlos Preciado11/07/2022 22:01 CDTWorkstation Name: [id number] METABOLIC [id number] 18:29:04 Test Item Value Reference Range Interpretation [...] not appl icable for dialysis patien ts Scada Engineer ID - BSDRUG SCREEN, URINE, [id number] 08:47:31 Test Item Value Reference Range Interpretation Comments SCAN RESULT (test see scanned report See scanned report. code = 6372192) see scanned reportPOCT-GLUCOSE [id number] 06:13:13 Test Item Value Reference Range Interpretation Comments POC-GLUCOSE METER 81 mg/dL 70-110 : TESTED A T [facility] 6720 (BEAKER) (test code = [facility] [place], 1538) 29149: Scada Engineer/Techni smiley ID = [id number] for Jessica Rodrigues [id number] 04:03:55 Test Item Value Reference Range Interpretation Comments PHOSPHORUS (BEAKER) (test code = 4.8 mg/dL 2.3-4.7 H 604) Scada Engineer ID - EMBASIC METABOLIC [id number] 04:03:54 Test Item Value Reference Range Interpretation [...] not appl icable for dialysis patien ts Scada Engineer ID - [id number] 04:03:54 Test Item Value Reference Range Interpretation Comments MAGNESIUM (BEAKER) (test code = 2.4 mg/dL 1.6-2.6 627) Scada Engineer ID - EMHIGH SENSITIVITY TROPONIN [id number] 03:58:57 Test Item Value Reference Range Interpretation Comments HIGH SENSITIVITY 165 pg/ml See_Comment H [Automated message] TROPONIN I (test code The sy stem which = [id number]) generated this result transmitted ref erence range: <=17. Th e reference range was not used to int erpret this result as normal/abnormal . Scada Engineer ID - EMThe SALES OPERATIONS STAT High Sensitivity Troponin-I results should be used in conjunctionwith other diagnostic information such as ECG, clinical observations and information, and patient symptoms to aid in the diagnosis of IL.CBC W/PLT COUNT & AUTO [id number] 03:38:52 Test Item Value Reference Range Interpretation [...] PERCENT (BEAKER) (test code = 2801) POCT-GLUCOSE [id number] 00:25:14 Test Item Value Reference Range Interpretation Comments POC-GLUCOSE METER 88 mg/dL 70-110 : [facility] 6720 (BEAKER) (test code = [facility]IN[facility] Dunn [facility], 1538) 21949: Scada Engineer/Techni smiley ID = [id number] for Elia Rodriguesy HIGH SENSITIVITY TROPONIN [id number] 22:04:24 Test Item Value Reference Range Interpretation Comments HIGH SENSITIVITY 193 pg/ml See_Comment H [Automated message] TROPONIN I (test code The sy stem which = [id number]) generated this result transmitted ref erence range: <=17. Th e reference range was not used to int erpret this result as normal/abnormal . Scada Engineer ID - DBThe SALES OPERATIONS STAT High Sensitivity Troponin-I results should be used in conjunctionwith other diagnostic information such as ECG, clinical observations and information, and patient symptoms to aid in the diagnosis of IL.URINALYSIS W/ REFLEX URINE [id number] 15:49:18 Test Item Value Reference Range Interpretation [...] /LPF 514) SOURCE(BEAKER) (test code = 2795) Scada Engineer ID - [auto]Scada Engineer ID - bsPT/[id number] 15:35:00 Test Item Value Reference Range Interpretation [...] patients with mechanical heart valves.HIGH SENSITIVITY TROPONIN [id number] 15:30:15 Test Item Value Reference Range Interpretation Comments HIGH SENSITIVITY 264 pg/ml See_Comment H [Automated message] TROPONIN I (test code The sy stem which = [id number]) generated this result transmitted ref erence range: <=17. Th e reference range was not used to int erpret this result as normal/abnormal . Scada Engineer ID - ADMINThe SALES OPERATIONS STAT High Sensitivity Troponin-I results should be used in conjunction with other diagnostic information such as ECG, clinical observations and information, and patientsymptoms to aid in the diagnosis of IL. BLOOD GAS, [id number] 15:09:57 Test Item Value Reference Range Interpretation [...] 36.0 XR CHEST 1 VIEW PORTABLE / [id number] 13:38:36 [facility] 1975 Sex: FChest, 1 view, 11/06/2022 11:58 AM.History: r/o aspiration pneumonia.Comparison: 10/30/2022.Discussion: Thecardiac silhouette is prominent but stable. Lungs areclear. There is no pneumothorax. Feeding tube terminates below thehemidiaphragm. Right IJ central line is no longer present. There are noacute osseous findings.IMPRESSION:No acute pulmonary findings.Electronically Signed By: Sage Zuly11/06/2022 13:40 CDTWorkstation Name: [id number] 2022-11-06 11:32:33 Test Item Value Reference Range Interpretation Comments PROCALCITONIN (BEAKER) (test code 0.31 ng/mL <0.05 H = 3036) SEPSIS RISK (ng/mL)Low: 0.05-0.50Intermediate: 0.51-2.00High: >=2.01HIGH SENSITIVITY TROPONIN [id number] 11:27:53 Test Item Value Reference Range Interpretation Comments HIGH SENSITIVITY 344 pg/ml See_Comment H [Automated message] TROPONIN I (test code The sy stem which = [id number]) generated this result transmitted ref erence range: <=17. Th e reference range was not used to int erpret this result as normal/abnormal . Scada Engineer ID Gisele STEEL WThe SALES OPERATIONS STAT High Sensitivity Troponin-I results should be used in conjunction with other diagnostic information such as ECG, clinical observations and information, and patient symptoms to aid in the diagnosis of IL.LACTIC ACID, [id number] 11:07:17 Test Item Value Reference Range Interpretation Comments LACTATE BLOOD VENOUS (2) (BEAKER) 0.80 mmol/L 0.50-2.00 (test code = 2872) Scada Engineer ID - DAMIÁN WCT BRAIN WITHOUT IV [id number] 10:59:53 [facility] Irineo : 1975 Sex: F ADDENDUM #1 Addendum: [...] Signed By: Alexandra Liang11/06/2022 11:01 CDTWorkstation Name: [id number] 10:57:58 Test Item Value Reference Range Interpretation Comments POC-HEMATOCRIT 34 % 36-45 L : Scada Engineer/Te chnician ID = (WESLEY) (test code = 535679 for CARLOS, 1856) ASMY [id number] 10:57:58 Test Item Value Reference Range Interpretation Comments POC-GLUCOSE (NERISBITA) 117 mg/dL 70-110 H : TESTE D AT [facility] 6720 (test code = 1855) [facility], [address]396: Scada Engineer/Techni smiley ID = [id number] for SAMY DAVIS XINS-[id number] 10:57:57 Test Item Value Reference Range Interpretation Comments POC-POTASSIUM 5.5 meq/L 3.6-5.5 : TESTED AT [facility] 67 (BEAKER) (test code [facility], = 1540) 24693: Scada Engineer/Techni smiley ID = [id number] for SAMY DAVIS [id number] 10:57:57 Test Item Value Reference Range Interpretation Comments POC-HEMOGLOBIN 11.6 g/dL 12.0-15.0 L : TESTED AT [facility] 6720 (BEAKER) (test code [facility], = 1856) 58488: Scada Engineer/Techni smiley ID = [id number] for SAMY DAVIS [id number] 10:57:52 Test Item Value Reference Range Interpretation Comments POC-SODIUM (BEAKER) 142 meq/L 135-148 : TESTED AT [facility] 6720 (test code = 1542) [facility], [address]: Scada Engineer/Techni smiley ID = [id number] for SAMY DAVIS POCT-BLOOD GASES, [id number] 10:57:51 Test Item Value Reference Range Interpretation [...] 7.0 meq/L -2.0-3.0 H : TESTED AT [facility] 6720 ARTERIAL-POC [facility], (BEAKER) (test code 19171: = 1841) Scada Engineer/Techni smiley ID = [id number] for SAMY DAVIS POCT-GLUCOSE [id number] 10:21:20 Test Item Value Reference Range Interpretation Comments POC-GLUCOSE METER 117 mg/dL 70-110 H : TESTED A T [facility] 6720 [facility] (test code = [facility] Mona [facility], 1538) 88649: Scada Engineer/Techni smiley ID = [id number] for MANDA ESPARZA POCT-GLUCOSE [id number] 05:45:28 Test Item Value Reference Range Interpretation Comments POC-GLUCOSE METER 116 mg/dL 70-110 H : TESTED A T [facility] 6720 [facility] (test code = [facility], 1538) 54379: Scada Engineer/Techni smiley ID = [id number] for Teresa Rose BASIC METABOLIC [id number] 05:42:31 Test Item Value Reference Range Interpretation [...] not appl icable for dialysis patien ts Scada Engineer ID - [id number] 05:40:46 Test Item Value Reference Range Interpretation Comments MAGNESIUM (BEAKER) (test code = 2.9 mg/dL 1.6-2.6 H 627) Scada Engineer ID - [id number] 05:40:46 Test Item Value Reference Range Interpretation Comments PHOSPHORUS (BEAKER) (test code = 6.5 mg/dL 2.3-4.7 H 604) Scada Engineer ID - ADMINCBC W/PLT COUNT & AUTO [id number] 05:38:35 Test Item Value Reference Range Interpretation [...] PERCENT (BEAKER) (test code = 2801) POCT-GLUCOSE [id number] 23:35:25 Test Item Value Reference Range Interpretation Comments POC-GLUCOSE METER 135 mg/dL 70-110 H : TESTED A T [facility] 6720 (BEAKER) (test code = [facility], 1538) 05349: Scada Engineer/Techni smiley ID = [id number] for Teresa Rose POCT-GLUCOSE [id number] 17:28:48 Test Item Value Reference Range Interpretation Comments POC-GLUCOSE METER 101 mg/dL 70-110 : TESTED A T [facility] 6720 (BEAKER) (test code = [facility], 1538) 42457: Scada Engineer/Techni smiley ID = [id number] for CIRA HUMPHREY BLOOD [id number] 17:00:30 Test Item Value Reference Range Interpretation Comments CULTURE (BEAKER) (test No growth in 5 days code = 1095) BLOOD [id number] 17:00:30 Test Item Value Reference Range Interpretation Comments CULTURE (BEAKER) (test No growth in 5 days code = 1095) XR ABDOMEN/KUB 1 VIEW [id number] 14:17:07 [facility] : 1975 Sex: FXR ABDOMEN/KUB 1 VIEW PORTABLETECHNIQUE: Supine radiograph(s) of the abdomen and pelvis.HISTORY: corpak placementCOMPARISON: 12/04/2022IMPRESSION:Lines and tubes: Enteric tube is seen with tip in the stomachElectronically Signed By: Sarah Carrera11/05/2022 14:19 CDTWorkstation Name: [id number] 12:53:33 Test Item Value Reference Range Interpretation Comments POC-GLUCOSE METER 88 mg/dL 70-110 : TESTED A T [facility] 6720 (BEAKER) (test code = [facility], 1538) 94455: Scada Engineer/Techni smiley ID = [id number] for CIRA ROLAND POCT-GLUCOSE [id number] 06:25:50 Test Item Value Reference Range Interpretation Comments POC-GLUCOSE METER 110 mg/dL 70-110 : TESTED A T [facility] 6720 (BEAKER) (test code = [facility], 1538) 63998: Scada Engineer/Techni smiley ID = [id number] for NADEGE IVEY BASIC METABOLIC [id number] 04:16:53 Test Item Value Reference Range Interpretation [...] not appl icable for dialysis patien ts Scada Engineer ID Gisele STEEL [id number] 04:16:53 Test Item Value Reference Range Interpretation Comments MAGNESIUM (BEAKER) (test code = 2.8 mg/dL 1.6-2.6 H 627) Scada Engineer ID Gisele STEEL [id number] 04:16:53 Test Item Value Reference Range Interpretation Comments PHOSPHORUS (BEAKER) (test code = 5.7 mg/dL 2.3-4.7 H 604) Scada Engineer ID Gisele STEEL WCBC W/PLT COUNT & AUTO [id number] 03:44:05 Test Item Value Reference Range Interpretation [...] PERCENT (BEAKER) (test code = 2801) POCT-GLUCOSE [id number] 23:25:33 Test Item Value Reference Range Interpretation Comments POC-GLUCOSE METER 114 mg/dL 70-110 H : TESTED A T [facility] 6720 (BEAKER) (test code = [facility] [place], 1538) 96653: Scada Engineer/Techni smiley ID = [id number] for NADEGE IVEY [id number] 18:58:11 Test Item Value Reference Range Interpretation Comments SODIUM (BEAKER) (test code = 381) 142 meq/L 136-145 Scada Engineer ID - JSPOCT-GLUCOSE [id number] 17:04:52 Test Item Value Reference Range Interpretation Comments POC-GLUCOSE METER 142 mg/dL 70-110 H : TESTED A T [facility] 6720 (BEAKER) (test code = SRIRAMID Mona [facility], 1538) 87808: Scada Engineer/Techni smiley ID = [id number] for MANDA ESPARZA POCT-GLUCOSE [id number] 12:43:34 Test Item Value Reference Range Interpretation Comments POC-GLUCOSE METER 127 mg/dL 70-110 H : TESTED A T [facility] 6720 (BEAKER) (test code = [facility] Mona [facility], 1538) 61703: Scada Engineer/Techni smiley ID = [id number] for MANDA ESPARZA [id number] 12:42:31 Test Item Value Reference Range Interpretation Comments SODIUM (BEAKER) (test code = 381) 141 meq/L 136-145 Scada Engineer ID - JSPOCT-GLUCOSE [id number] 05:53:11 Test Item Value Reference Range Interpretation Comments POC-GLUCOSE METER 122 mg/dL 70-110 H : TESTED A T [facility] 6720 (BEAKER) (test code = [facility], 1538) 98502: Scada Engineer/Techni smiley ID = [id number] for NADEGE IVEY [id number] 04:57:58 Test Item Value Reference Range Interpretation Comments PHOSPHORUS (BEAKER) 6.1 mg/dL 2.3-4.7 H Specimen slightly (test code = 604) hemolyzed Scada Engineer ID - DAMIÁN WBASIC METABOLIC [id number] 04:57:58 Test Item Value Reference Range Interpretation [...] not appl icable for dialysis patien ts Scada Engineer ID - DAMIÁN [id number] 04:57:57 Test Item Value Reference Range Interpretation Comments MAGNESIUM (BEAKER) 2.7 mg/dL 1.6-2.6 H Specimen slightly (test code = 627) hemolyzed Scada Engineer ID - DAMIÁN WCBC W/PLT COUNT & AUTO [id number] 04:36:11 Test Item Value Reference Range Interpretation [...] PERCENT (BEAKER) (test code = 2801) POCT-GLUCOSE [id number] 00:26:17 Test Item Value Reference Range Interpretation Comments POC-GLUCOSE METER 117 mg/dL 70-110 H : TESTED A T [facility] 6720 (BEAKER) (test code = [facility], 153) 65371: Scada Engineer/Techni smiley ID = [id number] for NADEGE IVEY [id number] 19:29:04 Test Item Value Reference Range Interpretation Comments SODIUM (BEAKER) (test code = 381) 141 meq/L 136-145 Scada Engineer ID - ADMINPOCT-GLUCOSE [id number] 16:58:24 Test Item Value Reference Range Interpretation Comments POC-GLUCOSE METER 142 mg/dL 70-110 H : TESTED A T [facility] 6720 (BEAKER) (test code = [facility], 153) 33270: Scada Engineer/Techni smiley ID = [id number] for MANDA ESPARZA XR ABDOMEN/KUB 1 VIEW [id number] 13:01:43 [facility] : 1975 Sex: FAbdomen , one viewHistory:Feeding tube placementComparison:10/30/2022Findings:Tip of the feeding tube is near the pylorus. Nonobstructive bowel gaspattern. Cholecystectomy clips within the right upper quadrant.Electronically Signed By: Kam Vigil MD11/03/2022 13:03 CDTWorkstation Name: [id number] 12:39:24 Test Item Value Reference Range Interpretation Comments SODIUM (BEAKER) (test code = 381) 142 meq/L 136-145 POCT-GLUCOSE [id number] 12:05:03 Test Item Value Reference Range Interpretation Comments POC-GLUCOSE METER 118 mg/dL 70-110 H : TESTED A T [facility] 6720 (BEAKER) (test code = [facility] Mon[facility], 1538) 14670: Scada Engineer/Techni smiley ID = [id number] for MANDA ESPARZA [id number] 06:17:11 Test Item Value Reference Range Interpretation Comments PHOSPHORUS (BEAKER) (test code = 4.1 mg/dL 2.3-4.7 604) Scada Engineer ID - DAMIÁN WBASIC METABOLIC [id number] 06:17:10 Test Item Value Reference Range Interpretation [...] not appl icable for dialysis patien ts Scada Engineer ID - DAMIÁN [id number] 06:17:10 Test Item Value Reference Range Interpretation Comments MAGNESIUM (BEAKER) (test code = 2.4 mg/dL 1.6-2.6 627) Scada Engineer ID - DAMIÁN WPOCT-GLUCOSE [id number] 05:50:21 Test Item Value Reference Range Interpretation Comments POC-GLUCOSE METER 121 mg/dL 70-110 H : TESTED A T [facility] 6720 (BEAKER) (test code = AVINASH Dunn [facility], 1538) 9[address]: Scada Engineer/Techni smiley ID = [id number] for NADEGE IVEY CBC W/PLT COUNT & AUTO [id number] 05:25:22 Test Item Value Reference Range Interpretation [...] PERCENT (BEAKER) (test code = 2801) POCT-GLUCOSE [id number] 23:36:51 Test Item Value Reference Range Interpretation Comments POC-GLUCOSE METER 116 mg/dL 70-110 H : TESTED A T [facility] 6720 (BEAKER) (test code = [facility] [place], 1538) 78073: Scada Engineer/Techni smiley ID = [id number] for NADEGE IVEY [id number] 18:30:49 Test Item Value Reference Range Interpretation Comments SODIUM (BEAKER) (test code = 381) 141 meq/L 136-145 Scada Engineer ID - ADMINPOCT-GLUCOSE [id number] 17:57:14 Test Item Value Reference Range Interpretation Comments POC-GLUCOSE METER 118 mg/dL 70-110 H : TESTED A T [facility] 6720 (BEAKER) (test code = [facility], 1538) 46597: Scada Engineer/Techni smiley ID = [id number] for An Donna lucas MRSA [id number] 14:39:15 Test Item Value Reference Range Interpretation Comments CULTURE (BEAKER) (test code No MRSA isolated = 1095) [id number] 13:35:39 Test Item Value Reference Range Interpretation Comments SODIUM (BEAKER) (test code = 381) 139 meq/L 136-145 Scada Engineer ID - BVPOCT-GLUCOSE [id number] 13:06:41 Test Item Value Reference Range Interpretation Comments POC-GLUCOSE METER 134 mg/dL 70-110 H : TESTED A T [facility] 6720 (BEAKER) (test code = [facility], 1538) 35314: Scada Engineer/Techni smiley ID = [id number] for An Donna lucas CT BRAIN WITHOUT IV [id number] 13:00:59 [facility] : 1975 Sex: FCT BRAIN [...] Signed By: Alexandra Liang11/02/2022 13:03 CDTWorkstation Name: [id number] 06:29:29 Test Item Value Reference Range Interpretation Comments SODIUM (BEAKER) (test code = 381) 139 meq/L 136-145 BASIC METABOLIC [id number] 06:29:28 Test Item Value Reference Range Interpretation [...] (test code = 697) EGFR (BEAKER) 79 Interpretati on of eGFR (test code = [...] not appl icable for dialysis patien ts [employer] Engineer ID - [id number] 06:29:28 Test Item Value Reference Range Interpretation Comments MAGNESIUM (BEAKER) (test code = 2.2 mg/dL 1.6-2.6 627) [employer] Engineer ID - [id number] 06:29:28 Test Item Value Reference Range Interpretation Comments PHOSPHORUS (BEAKER) (test code = 3.8 mg/dL 2.3-4.7 604) [employer] Engineer ID - MARCOPOCT-GLUCOSE [id number] 06:21:55 Test Item Value Reference Range Interpretation Comments POC-GLUCOSE METER 125 mg/dL 70-110 H : TESTED A T [facility] 6720 (BEAKER) (test code = AVINASH Dunn [facility], 1538) [address]: Scada Engineer/Techni smiley ID = [id number] for NADEGE IVEY CBC W/PLT COUNT & AUTO [id number] 06:08:00 Test Item Value Reference Range Interpretation [...] PERCENT (BEAKER) (test code = 2801) POCT-GLUCOSE [id number] 00:19:06 Test Item Value Reference Range Interpretation Comments POC-GLUCOSE METER 99 mg/dL 70-110 : TESTED A T [facility] 6720 (BEAKER) (test code = AVINASH Dunn [facility], 1538) [id number]: Scada Engineer/Techni smiley ID = [id number] for NADEGE MORALES [id number] 18:45:56 Test Item Value Reference Range Interpretation Comments SODIUM (BEAKER) (test code = 381) 140 meq/L 136-145 Scada Engineer ID - ADMPOCT-GLUCOSE [id number] 18:39:21 Test Item Value Reference Range Interpretation Comments POC-GLUCOSE METER 121 mg/dL 70-110 H : TESTED A T [facility] 6720 (BEAKER) (test code [facility], = 1538) [id number]: Scada Engineer/Techni smiley ID = [id number] for Latonia Connolly [id number] 14:24:36 Test Item Value Reference Range Interpretation Comments SODIUM (BEAKER) (test code = 381) 140 meq/L 136-145 Scada Engineer ID - [id number] 10:06:02 Test Item Value Reference Range Interpretation Comments POTASSIUM (BEAKER) (test code = 3.8 meq/L 3.5-5.1 379) Scada Engineer ID - [id number] 10:06:01 Test Item Value Reference Range Interpretation Comments MAGNESIUM (BEAKER) (test code = 2.3 mg/dL 1.6-2.6 627) Scada Engineer ID - ADMVANCOMYCIN LEVEL, [id number] 09:59:39 Test Item Value Reference Range Interpretation Comments VANCOMYCIN TROUGH (BEAKER) (test 8.4 ug/mL 10.0-20.0 L code = 522) Scada Engineer ID - [id number] 04:21:26 Test Item Value Reference Range Interpretation Comments MAGNESIUM (BEAKER) (test code = 2.0 mg/dL 1.6-2.6 627) Scada Engineer ID - [id number] 04:21:26 Test Item Value Reference Range Interpretation Comments PHOSPHORUS (BEAKER) (test code = 3.2 mg/dL 2.3-4.7 604) Scada Engineer ID - ADMINBASIC METABOLIC [id number] 04:21:25 Test Item Value Reference Range Interpretation [...] not appl icable for dialysis patien ts Scada Engineer ID - ADMINCBC W/PLT COUNT & AUTO [id number] 03:36:42 Test Item Value Reference Range Interpretation [...] 0.00-1.00 PERCENT (BEAKER) (test code = 2801) [id number] 00:11:29 Test Item Value Reference Range Interpretation Comments SODIUM (BEAKER) (test code = 381) 139 meq/L 136-145 Scada Engineer ID - [id number] 18:25:44 Test Item Value Reference Range Interpretation Comments SODIUM (BEAKER) (test code = 381) 139 meq/L 136-145 Scada Engineer ID - esauSARS-COV2/INFLUENZA/RSV PR-[id number] 14:03:24 Test Item Value Reference Range Interpretation Comments SARS-COV2/RT-PCR Negative Negative The SARS-Co V-2 target (test code = nucleic acids a re not 4579620) detected in thi s specimen. Negat yesika [...] pected of COVID-19 by the [facility] ider. INFLUENZA A RT-PCR Negative Negative The Flu A target nucleic (test code = acids are not d etected in 19100421) this specimen. INFLUENZA B RT-PCR Negative Negative The Flu B target nucleic (test code = acids are not d etected in 19100422) this specimen. RSV RT-PCR (test Negative Negative The RSV tar get nucleic code = 7316504) acids are no t detected in this [...] Xpress SARS-CoV-2/Flu/RSV by their healthcareprovider. Results from [facility] Xpert Xpress SARS-CoV-2/Flu/RSV test should be correlated [...] of the Act.Fact Sheet for Healthcare Providers:https ://www.[employer]/Documents/Xpert%20Xpress%20SARS%20CoV-2/Fact%20Sheets/302-390 2%11GVQH-VBF-0%20HEALTHCARE%20PROVIDERS%20FACT%20SHEET.pdfFact Sheet for Healthcare Patients:https://www.[employer]/Docum ents/Xpert%20Xpress%20SARS%20Cov-2/Fact%20Sheets/302-3801%66GVKS-BEL-9%20PATIENT %20FACT%20SHEET.[id number] 12:52:25 Test Item Value Reference Range Interpretation Comments SODIUM (BEAKER) (test code = 381) 135 meq/L 136-145 L Scada Engineer ID - [id number] 12:52:24 Test Item Value Reference Range Interpretation Comments MAGNESIUM (BEAKER) (test code = 2.4 mg/dL 1.6-2.6 627) Scada Engineer ID - esauPOCT-GLUCOSE [id number] 12:00:51 Test Item Value Reference Range Interpretation Comments POC-GLUCOSE METER 130 mg/dL 70-110 H : [facility] (BEAKER) (test code [facility], = 1538) 19678: Scada Engineer/Techni smiley ID = [id number] for Latonia Connolly B-TYPE NATRIURETIC FACTOR (BNP)2022-10-31 10:43:21 Test Item Value Reference Range Interpretation Comments B-TYPE NATRIURETIC PEPTIDE (BEAKER) 568 pg/mL 0-100 H (test code = 700) Scada Engineer ID - [id number] 05:07:29 Test Item Value Reference Range Interpretation Comments MAGNESIUM (BEAKER) (test code = 1.9 mg/dL 1.6-2.6 627) Scada Engineer ID - [id number] 05:07:29 Test Item Value Reference Range Interpretation Comments PHOSPHORUS (BEAKER) (test code = 3.7 mg/dL 2.3-4.7 604) Scada Engineer ID - ADMINBASIC METABOLIC [id number] 05:07:28 Test Item Value Reference Range Interpretation [...] not appl icable for dialysis patien ts Scada Engineer ID - ADMINCBC W/PLT COUNT & AUTO [id number] 04:47:13 Test Item Value Reference Range Interpretation [...] 0.00-1.00 PERCENT (BEAKER) (test code = 2801) [id number] 23:06:40 Test Item Value Reference Range Interpretation Comments SODIUM (BEAKER) (test code = 381) 133 meq/L 136-145 L Scada Engineer ID - ADMINHIGH SENSITIVITY TROPONIN [id number] 22:59:43 Test Item Value Reference Range Interpretation Comments HIGH SENSITIVITY 92 pg/ml See_Comment H [Automated message] TROPONIN I (test code = The system which [id number]) generated this result transmitted ref erence range: <=17. Th e reference range was not used to int erpret this result as normal/abnormal . Scada Engineer ID - ADMINThe SALES OPERATIONS STAT High Sensitivity Troponin-I results should be used in conjunction with other diagnostic information such as ECG, clinical observations and information, and patientsymptoms to aid in the diagnosis of IL. XR ABDOMEN/KUB 1 VIEW [id number] 18:54:45 [facility] 1975 Sex: FTECHNIQUE: XR ABDOMEN/KUB 1 VIEW PORTABLEINDICATION: corpak placement.COMPARISON: 10/29/2022FINDINGS:Feeding tube tip projecting over the body of the stomach. No specificevidence for bowel obstruction. Cholecystectomy clips are noted. Supineradiographs are insensitive for detection of free intraperitoneal ai r.IMPRESSION:Feeding tube tip projects over the body of the stomach.Electronically Signed By: Mo Soares10/30/2022 18:56 CDTWorkstation Name: [id number] SENSITIVITY TROPONIN [id number] 17:30:01 Test Item Value Reference Range Interpretation Comments HIGH SENSITIVITY 123 pg/ml See_Comment H [Automated message] TROPONIN I (test code The sy stem which = [id number]) generated this result transmitted ref erence range: <=17. Th e reference range was not used to int erpret this result as normal/abnormal . Scada Engineer ID - BSThe SALES OPERATIONS STAT High Sensitivity Troponin-I results should be used in conjunctionwith other diagnostic information such as ECG, clinical observations and information, and patient symptoms to aid in the diagnosis of IL.LACTIC ACID, [id number] 17:25:59 Test Item Value Reference Range Interpretation Comments LACTATE BLOOD ARTERIAL (2) 1.0 mmol/L 0.5-2.0 (BEAKER) (test code = 2874) Scada Engineer ID - [id number] 17:21:36 Test Item Value Reference Range Interpretation Comments SODIUM (BEAKER) (test code = 381) 136 meq/L 136-145 Scada Engineer ID - ADMINBLOOD GAS, [id number] 14:46:08 Test Item Value Reference Range Interpretation [...] FIO2 (BEAKER) (test code = 1819) 100.0 [id number] 12:47:53 Test Item Value Reference Range Interpretation Comments SODIUM (BEAKER) (test code = 381) 137 meq/L 136-145 Scada Engineer ID - JSLACTIC ACID, [id number] 12:47:37 Test Item Value Reference Range Interpretation Comments LACTATE BLOOD 2.3 mmol/L 0.5-2.0 H Specimen sligh tly ARTERIAL (2) (BEAKER) hemoly zed (test code = 2874) Scada Engineer ID - JSBLOOD GAS, [id number] 12:23:19 Test Item Value Reference Range Interpretation [...] FIO2 (BEAKER) (test code = 1819) 100.0 [id number] 11:15:25 Test Item Value Reference Range Interpretation Comments PROCALCITONIN (BEAKER) (test code 0.05 ng/mL <0.05 H = 3036) SEPSIS RISK (ng/mL)Low: 0.05-0.50Intermediate: 0.51-2.00High: >=2.01HIGH SENSITIVITY TROPONIN [id number] 11:10:59 Test Item Value Reference Range Interpretation Comments HIGH SENSITIVITY 139 pg/ml See_Comment H [Automated message] TROPONIN I (test code The arvind dsouza which = [id number]) generated this result transmitted ref erence range: <=17. Th e reference range was not used to int erpret this result as normal/abnormal . Scada Engineer ID - JSThe SALES OPERATIONS STAT High Sensitivity Troponin-I results should be used in conjunctionwith other diagnostic information such as ECG, clinical observations and information, and patient symptoms to aid in the diagnosis of IL.XR CHEST 1 VIEW PORTABLE / [id number] 10:47:01 [facility] 1975 Sex: FCLINICAL HISTORY: desaturationTECHNIQUE: 1 view of the chest.COMPARISON: 10/29/2022IMPRESSION:ETT no longer seen. New feeding tube below the diaphragm. Right centralline remains in the right atrium. There are mildly increased bilaterallower lung airspace opacities with blunting of both costophrenic angles.The cardiomediastinal silhouette is magnified by technique.Electronically Signed By: eYyo Mills10/30/2022 10:49 CDTWorkstation Name: [id number] BRAIN WITHOUT IV [id number] 09:21:03 [facility] : 1975 Sex: FCT BRAIN [...] Signed By: Luís Mclain10/30/2022 09:23 CDTWorkstation Name: [id number] 04:21:01 Test Item Value Reference Range Interpretation Comments PHOSPHORUS (BEAKER) (test code = 3.2 mg/dL 2.3-4.7 604) Scada Engineer ID - EMBASIC METABOLIC [id number] 04:21:00 Test Item Value Reference Range Interpretation [...] not appl icable for dialysis patien ts Scada Engineer ID - [id number] 04:21:00 Test Item Value Reference Range Interpretation Comments MAGNESIUM (BEAKER) (test code = 1.7 mg/dL 1.6-2.6 627) Scada Engineer ID - EMCBC W/PLT COUNT & AUTO [id number] 03:30:03 Test Item Value Reference Range Interpretation [...] 0.00-1.00 PERCENT (BEAKER) (test code = 2801) [id number] 00:34:48 Test Item Value Reference Range Interpretation Comments SODIUM (BEAKER) (test code = 381) 137 meq/L 136-145 Scada Engineer ID - ADMINXR ABDOMEN/KUB 1 VIEW [id number] 18:55:43 [facility] 1975 Sex: FTECHNIQUE: XR ABDOMEN/KUB 1 VIEW PORTABLEINDICATION: Enteric tube placement verification.COMPARISON: None.FINDINGS:Feeding tube tip projected over the third portion of the duodenum.Cholecystectomy clips are noted. Excreted contrast is noted within thebladder. Moderate amount of stool within the proximal mid transversecolon. No specific evidence of bowel obstruction. Supine radiographs areinsensitive for detection of free intraperitoneal air.IMPRESSION:1. Feeding tube tip projects over the third portion of the duodenum.Electronically Signed By: Mo Soares10/29/2022 18:57 CDTWorkstation Name: [id number] 2022-10-29 18:31:20 Test Item Value Reference Range Interpretation Comments SODIUM (BEAKER) (test code = 381) 138 meq/L 136-145 Scada Engineer ID - ADMINCREATININE, RANDOM [id number] 15:21:04 Test Item Value Reference Range Interpretation Comments CREATININE URINE (BEAKER) (test 24.5 mg/dL code = 375) Reference Range: No NormalsOperator ID - ADMINRAPID DRUG SCREEN, [id number] 14:06:15 Test Item Value Reference Range Interpretation [...] situations. Chain of custody not maintained. Some gsdb-xmd-zwpvuvj medications, as well as adulterants, may cause inaccurate results. Clinical correlation should be applied. A more comprehensive drug screen or confirmation of a detected drug may be performed upon request.Scada Engineer ID - JSOperator ID - [auto] HEMOGLOBIN [id number] 13:23:17 Test Item Value Reference Range Interpretation Comments HEMOGLOBIN A1C 4.5 % See_Comment [Automated m essage] ELECTROPHORESIS ([employer]) The system which (test code = 3811) generated this result transmitted ref erence range: <=5.6%. The reference range was not used to int erpret this result as normal/abnormal . "The A1c is measured using a NGSP-certified method. HbA1c value equal to or greater than 6.5% as thediagnosis cutoff for diabetes. An HbA1c value of 5.7- 6.4% indicates increased risk for diabetes (prediabetes)."Scada Engineer ID - ADMOperator ID - ADMCTA [id number] 13:16:45 [facility] : 1975 Sex: FCT BRAIN WITHOUT IV CONTRAST, CTA CAROTID, CTA BRAINBRAIN CT WITHOUT CONTRASTINDICATION: Unlisted Reasonfor Exam, intraparenchymal hematomaCOMPARISON: NoneTECHNIQUE:Rapid acquisition spiral images were obtained between the aortic archand the cranial vertex during intravenous contrast infusion toreconstruct axial images and angiographic 3D maximum intensityprojections (MIP). 3-D volumetric reformatted images were created at [employer] workstation. Precontrast images of the brain were alsoobtained. Stenosis evaluation reported in compliance with NASCET criteria.DOSE REDUCTION: Dose modulation, iterativereconstruction, and/orweight- based adjustment of the mA/kV was utilized to reduce theradiation dose to as low as reasonably achievable.FINDINGS:CT BRAIN:Intraparenchymal hematoma centered in the right subinsular regionmeasuring 5.4 x 5.8 x 2.7 cm. Small adjacent hemorrhages are seen in theright central white matter and basal ganglia. Midline structures are normally developed. Diffuse senescent parenchymal volume loss.No hydrocephalus. Effacement of the right [...] Signed By: Luís Mclain10/29/2022 13:18 CDTWorkstation Name: [id number] BRAIN WITHOUT IV [id number] 13:16:45 [facility] : 1975 Sex: FCT BRAIN WITHOUT IV CONTRAST, CTA CAROTID, CTA BRAINBRAIN CT WITHOUT CONTRASTINDICATION: Unlisted Reason for Exam, intraparenchymal hematomaCOMPARISON: NoneTECHNIQUE:Rapid acquisition spiral images were obtained between the aortic archand the cranial vertex during intravenous contrast infusion toreconstruct axial images and angiographic 3D maximum intensityprojections (MIP). 3-D volumetric reformatted images were created at [employer] workstation. Precontrast images of the brain were [...] Signed By: Luís Mclain10/29/2022 13:18 CDTWorkstation Name: [id number] 13:16:45[facility] : 1975 Sex: FCT BRAIN WITHOUT IV CONTRAST, CTA CAROTID, CTA BRAINBRAIN CT WITHOUT CONTRASTINDICATION: Unlisted Reason for Exam, intraparenchymal hematomaCOMPARISON: NoneTECHNIQUE:Rapid acquisition spiral images were obtained between the aortic archand the cranial vertex during intravenous contrast infusion toreconstruct axial images and angiographic 3D maximum intensityprojections (MIP). 3-D volumetric reformatted images were created at [employer] workstation. Precontrast images of the brain were [...] Signed By: Luís Mclain10/29/2022 13:18 CDTWorkstation Name: [id number], QUANTITATIVE, [id number] 13:15:24 Test Item Value Reference Range Interpretation Comments GONADOTROPIN, CHORIONIC (HCG) QUANT < mIU/mL 0-[address] ([facility]) (test code = 649) Non- Females: <10 mIU/mL Females: Gestation Age Reference Range(mIU/mL) 0.2-1 Week 5-50 1-2 Weeks 50-500 2-3 Weeks 100-5,000 3-4 Weeks 500-10,000 4-5 Weeks 1,000-50,000 5-6 Weeks 10,000-100,000 6-8 Weeks 15,000- 200,000 2-3 Months 10,000-100,000 Scada Engineer ID - MARCOOSMOLALITY, [id number] 13:07:55 Test Item Value Reference Range Interpretation Comments OSMOLALITY URINE 529 mOsm/kg See_Comment [Automated message] ([facility]) (test code = The sy stem which 614) generated this result transmitted ref erence range: 50-1,200 mOsm/kg. The reference range was not used to int erpret this result as normal/abnormal . UREA NITROGEN, RANDOM [id number] 12:57:04 Test Item Value Reference Range Interpretation Comments UREA NITROGEN URINE (BEAKER) (test 186 mg/dL code = 538) Reference Range: No NormalsOperator ID - JSSODIUM, RANDOM [id number] 12:57:03 Test Item Value Reference Range Interpretation Comments SODIUM URINE (BEAKER) (test code = 155 meq/L 243) Reference Range: No NormalsOperator ID - JSOSMOLALITY, [id number] 12:52:21 Test Item Value Reference Range Interpretation Comments OSMOLALITY, SERUM (BEAKER) (test 290 mOsm/kg 275-295 code = 615) [id number] 12:52:14 Test Item Value Reference Range Interpretation Comments SODIUM (BEAKER) (test code = 381) 140 meq/L 136-145 Scada Engineer ID - MARCOPREGNANCY SCREEN, [id number] 09:52:55 Test Item Value Reference Range Interpretation Comments TEST URINE (BEAKER) (test Negative Negative code = 583) BLOOD GAS, [id number] 08:02:40 Test Item Value Reference Range Interpretation [...] (BEAKER) (test code = 1819) 40.0 T4, [id number] 06:13:37 Test Item Value Reference Range Interpretation Comments FREE T4 (BEAKER) (test code = 655) 0.90 ng/dL 0.70-1.48 Scada Engineer ID - ADMINTSH/FREE T4 IF [id number] 05:34:42 Test Item Value Reference Range Interpretation Comments THYROID STIMULATING HORMONE 6.331 uIU/mL 0.350-4.940 H (BEAKER) (test code = 772) Scada Engineer ID - [id number] 05:26:57 Test Item Value Reference Range Interpretation Comments MAGNESIUM (BEAKER) (test code = 1.8 mg/dL 1.6-2.6 627) Scada Engineer ID - [id number] 05:26:57 Test Item Value Reference Range Interpretation Comments PHOSPHORUS (BEAKER) (test code = 3.0 mg/dL 2.3-4.7 604) Scada Engineer ID - MARCOCOMPREHENSIVE METABOLIC [id number] 05:26:56 Test Item Value Reference Range Interpretation [...] not appl icable for dialysis patien ts Scada Engineer ID - MARCOXR CHEST 1 VIEW PORTABLE / [id number] 05:03:50 [facility] : 1975 Sex: FXR [...] Signed By: Jaziel Monte10/29/2022 05:05 CDTWorkstation Name: [id number] 04:56:04 Test Item Value Reference Range Interpretation Comments PARTIAL THROMBOPLASTIN TIME 30.4 seconds 22.5-36.0 (BEAKER) (test code = 760) PROTHROMBIN TIME/[id number] 04:55:22 Test Item Value Reference Range Interpretation Comments PROTIME (BEAKER) 13.6 seconds 11.9-14.2 (test code = 759) INR (BEAKER) (test 1.06 See_Comment [Automat ed message] code = 370) The system [employer] generated this result transmitted ref erence range: <=5.90. The reference range was not used to int erpret this result as normal/abnormal . RECOMMENDED COUMADIN/WARFARIN INR THERAPY RANGESSTANDARD DOSE: 2.0 - 3.0 Includes: PROPHYLAXIS for venous thrombosis, systemic embolization; TREATMENT for venous thrombosis and/or pulmonary embolus.HIGH RISK: Target INR is 2.5-3.5 for patients with mechanical heart valves.CBC W/PLT COUNT & AUTO [id number] 04:50:18 Test Item Value Reference Range Interpretation [...] (BEAKER) (test code = 2801) BLOOD GAS, [id number] 04:03:20 Test Item Value Reference Range Interpretation [...] (BEAKER) (test code = 1819) 60.0 CALCIUM, [id number] 03:59:22 Test Item Value Reference Range Interpretation Comments CALCIUM IONIZED (BEAKER) (test 1.09 mmol/L 1.12-1.27 L code = 698) PH, BLOOD (BEAKER) (test code = 7.33 1810) Fungus culture + [id number] 08:28:10 Test Item Value Reference Range Interpretation Comments Result (test code = No fungus isolated in 6463-4) 28 days Fungus Smear (test No fungal elements seen code = 1406) [facility] [id number] 08:28:10 Test Item Value Reference Range Interpretation Comments CULTURE (BEAKER) (test No fungus isolated in code = 1095) 28 days FUNGUS SMEAR (BEAKER) No fungal elements seen (test code = 1406) [id number] 05:54:28 Test Item Value Reference Range Interpretation Comments MAGNESIUM (BEAKER) (test code = 1.9 mg/dL 1.6-2.6 627) Scada Engineer ID - [id number] 05:54:28 Test Item Value Reference Range Interpretation Comments PHOSPHORUS (BEAKER) (test code = 5.2 mg/dL 2.3-4.7 H 604) Scada Engineer ID - MARCOBASIC METABOLIC [id number] 05:54:27 Test Item Value Reference Range Interpretation [...] not appl icable for dialysis patien ts Scada Engineer ID - MARCOCBC W/PLT COUNT & AUTO [id number] 05:42:51 Test Item Value Reference Range Interpretation [...] PERCENT (BEAKER) (test code = 2801) CALCIUM, [id number] 05:36:04 Test Item Value Reference Range Interpretation Comments CALCIUM IONIZED (BEAKER) (test 1.12 mmol/L 1.12-1.27 code = 698) PH, BLOOD (BEAKER) (test code = 7.42 1810) Anaerobic [id number] 02:03:45 Test Item Value Reference Range Interpretation Comments Result (test code = No anaerobes isolated 6463-4) [facility] [id number] 02:03:45 Test Item Value Reference Range Interpretation Comments CULTURE (BEAKER) (test No anaerobes isolated code = 1095) STD Panel - CT/GC [id number] 17:37:44 Test Item Value Reference Interpretation Comments Range C. trachomatis NOT DETECTED RNA, TMA (test code = 4177037) N. gonorrhoeae NOT DETECTED REFERENCE RA NGE: NOT RNA, TMA (test DETECTED Meth odology: code = 8294756) Transcriptio n Mediated Amplification ( TMA)to detect RNA. The analytical perf ormance characteristics of thisassay, when used to test SurePat h(TM) specimens haveb een determined by [employer]. Th e modificationsha ve not been cleared or approved by the FDA. This assayhas b een validated pursu ant to the CLIA regula tions andis used for clinical purpos es. For additional information, pl ease refer tohttps://educa tion.[facility] [facility]. [employer]/faq /VRG933(This li nk is being provided for informational/e ducatio nal purposes on ly.) SUE (test code = Performing Lab SUE) *QDID [facility] [address] [address] Sylvie Gresham MD, PhD [facility] METABOLIC [id number] 16:40:09 Test Item Value Reference Range Interpretation [...] not appl icable for dialysis patien ts Scada Engineer ID - BSOsmolality, [id number] 12:43:16 Test Item Value Reference Range Interpretation Comments Osmolality, Ur (test code 245 See_Comment [ Automated message] = 2695-5) The system [employer] generated this result transmitted ref erence range: 50-1,200 mOsm/kg mOsm/kg . The reference range was not used to int erpret this result as normal/abnormal . Lab Interpretation (test Normal code = 19330-4) [facility]OSMOLALITY, [id number] 12:43:16 Test Item Value Reference Range Interpretation Comments OSMOLALITY URINE 245 mOsm/kg See_Comment [Automated message] (BEAKER) (test code = The sy stem which 614) generated this result transmitted ref erence range: 50-1,200 mOsm/kg. The reference range was not used to int erpret this result as normal/abnormal . Sodium, random [id number] 11:48:27 Test Item Value Reference Range Interpretation Comments Sodium Urine (test 82 meq/L code = 2955-3) SUE (test code = Reference Range: No SUE) NormalsOperator ID - ADMIN [facility] HospitalU[facility] Nitrogen, random [id number] 11:48:27 Test Item Value Reference Range Interpretation Comments Urea Nitrogen, Ur 121 mg/dL (test code = 3095-7) SUE (test code = Reference Range: No SUE) NormalsOperator ID - ADMIN [facility] RANDOM [id number] 11:48:27 Test Item Value Reference Range Interpretation Comments SODIUM URINE (BEAKER) (test code = 82 meq/L 243) Reference Range: No NormalsOperator ID - ADMINUREA NITROGEN, RANDOM URINE 2022-08-10 11:48:27 Test Item Value Reference Range Interpretation Comments UREA NITROGEN URINE (BEAKER) (test 121 mg/dL code = 538) Reference Range: No NormalsOperator ID - ADMINCreatinine, random [id number] 11:48:26 Test Item Value Reference Range Interpretation Comments Creatinine, Ur 20.9 mg/dL (test code = 2161-8) SUE (test code = Reference Range: No SUE) NormalsOperator ID - ADMIN [facility] HospitalCREATININE, RANDOM [id number] 11:48:26 Test Item Value Reference Range Interpretation Comments CREATININE URINE (BEAKER) (test 20.9 mg/dL code = 375) Reference Range: No NormalsOperator ID - ADMINWound culture + gram stain 2022-08-10 11:24:49 Test Item Value Reference Range Interpretation Comments Result (test code = No growth 6463-4) Gram Stain Result <1+ gram positive cocci (test code = 1123) in pairs [facility] HospitalWOUND CULTURE + GRAM [id number] 11:24:49 Test Item Value Reference Range Interpretation Comments CULTURE (BEAKER) (test No growth code = 1095) GRAM STAIN RESULT 4+ WBCs (BEAKER) (test code = 1123) GRAM STAIN RESULT <1+ gram positive cocci (BEAKER) (test code = in pairs 57721) T4, [id number] 11:12:44 Test Item Value Reference Range Interpretation Comments FREE T4 (BEAKER) (test code = 655) 1.25 ng/dL 0.70-1.48 Scada Engineer ID - AAHAMIDOSMOLALITY, WTDFY1230-08-07 11:11:51 Test Item Value Reference Range Interpretation Comments OSMOLALITY, SERUM (BEAKER) (test 271 mOsm/kg 275-295 L code = 615) TSH/FREE T4 IF [id number] 10:36:27 Test Item Value Reference Range Interpretation Comments THYROID STIMULATING HORMONE 10.385 uIU/mL 0.350-4.940 H (BEAKER) (test code = 772) Scada Engineer ID - CAURLQCXFZNHZTF1640-88-89 10:30:32 Test Item Value Reference Range Interpretation Comments CORTISOL, TOTAL (BEAKER) (test 11.9 ug/dL 3.7-19.4 code = 2755) Scada Engineer ID - AAJDCT, DRAINAGE, SOFT TISSUE FLUID [id number] 09:56:00Reason for exam:->tubo-ovarian abscess [facility] 1975 Sex: [...] lower quadrant fluid collection. Signed: Nilo Whiteside Verified Date/Time: 08/10/2022 09:56:28 Reading Location: [address] Neuro Reading Room BASIC METABOLIC [id number] 06:16:41 Test Item Value Reference Range Interpretation [...] not appl icable for dialysis patien ts Scada Engineer ID - ADMINSpecimen slightly abstqdyHQMKEUFBU7810-74-73 06:16:41 Test Item Value Reference Range Interpretation Comments MAGNESIUM (BEAKER) 1.9 mg/dL 1.6-2.6 Specimen slightly (test code = 627) hemolyzed Scada Engineer ID - ADMINCBC (HEMOGRAM ONLY)2022-08-10 05:54:45 Test [...] 0-0 CELLS (BEAKER) (test code = 413) [id number] 04:19:50 Test Item Value Reference Range Interpretation Comments MAGNESIUM (BEAKER) (test code = 1.3 mg/dL 1.6-2.6 L 627) Scada Engineer ID - MMBASIC METABOLIC [id number] 04:19:50 Test Item Value Reference Range Interpretation [...] not appl icable for dialysis patien ts Scada Engineer ID - MMSpecimen slightly ictericCBC (HEMOGRAM ONLY)2022-08-09 [...] (BEAKER) (test code = 413) BASIC METABOLIC [id number] 06:27:34 Test Item Value Reference Range Interpretation [...] not appl icable for dialysis patien ts Scada Engineer ID - DAMIÁN WSpecimen slightly ictericB-TYPE NATRIURETIC FACTOR (BNP) 2022-08-08 05:56:50 Test Item Value Reference Range Interpretation Comments B-TYPE NATRIURETIC PEPTIDE (BEAKER) 202 pg/mL 0-100 H (test code = 700) Scada Engineer ID - BSCBC (HEMOGRAM ONLY)2022-08-08 05:36:13 Test [...] (BEAKER) (test code = 413) BASIC METABOLIC [id number] 05:39:11 Test Item Value Reference Range Interpretation [...] not appl icable for dialysis patien ts Scada Engineer ID - ADMINSpecimen slightly ictericCBC (HEMOGRAM ONLY)2022-08-07 [...] 0-0 (BEAKER) (test code = 413) CT, [id number] 07:32:00Unlisted Reason for Exam - Click Yes and Enter Reason Below->NoProtocol Please Specify:->Standard ProtocolWill this procedure require oral contrast?->No [facility] 1975 Sex: FFINAL [...] MDReport Verified Date/Time: 08/06/2022 07:32:46 Reading Location: [facility] Diagnostic Imaging Reading Room - [place] [address] Pregnancy Screen, urine 2022-08-05 21:59:05 Test Item Value Reference Range Interpretation Comments Preg Test, Ur (test code = 2112-1) Negative Negative Lab Interpretation (test code = Normal 01391-1) [facility] HospitalPREGNANCY SCREEN, [id number] 21:59:05 Test Item Value Reference Range Interpretation [...] CONCENTRATION Adequate (CELLAVISION)(BEAKER) (test code = 3438) Scada Engineer ID - Salena comments: Slide comments:BASIC METABOLIC [...] not appl icable for dialysis patien ts Scada Engineer ID - ADMINSpecimen slightly ictericPROTHROMBIN TIME/[id number] 21:25:45 Test Item Value Reference Range Interpretation [...] mechanical heart valves.CBC W/PLT COUNT & AUTO [id number] 21:20:49 Test Item Value Reference Range Interpretation [...] (BEAKER) (test code = 413) Transthoracic echo asfgdg3654-24-23 16:18:18Ejection FractionSLEH ECHO HEARTLAB MKCKESSON [facility] [id number] 05:26:56 Test Item Value Reference Range Interpretation [...] not appl icable for dialysis patien ts Scada Engineer ID - MMSpecimen slightly ictericCBC (HEMOGRAM ONLY)2022-08-03 [...] CONCENTRATION Decreased (CELLAVISION)(BEAKER) (test code = 3438) Scada Engineer ID - Salena comments: Slide comments:CBC W/PLT COUNT & AUTO [id number] 14:52:12 Test Item Value Reference Range Interpretation [...] (BEAKER) (test code = 413) BASIC METABOLIC [id number] 13:40:34 Test Item Value Reference Range Interpretation [...] not appl icable for dialysis patien ts Scada Engineer ID - ADMINSpecimen moderately ictericMYOCARD IMAGING, MULTI, PHARM, [id number] 15:12:00Unlisted Reason for Exam - Click Yes and Enter Reason Below->No[facility] : 1975 Sex: FFINAL REPORT PROCEDURE: MYOCARDIAL PERFUSION SPECT IMAGING (Rest/Stress)CPT CODE: 64007 INDICATION: Cardiac screening, high CAD risk CARDIOVASCULAR [...] prior study for comparison. Signed: Robbin Cerna Verified Date/Time: 08/01/2022 15:12:23 HEMOGLOBIN A1C 2022-08-01 13:52:52 Test Item Value Reference Range Interpretation Comments HEMOGLOBIN A1C 5.0 % See_Comment [Automated m essage] ELECTROPHORESIS (BEAKER) The system which (test code = 3811) generated this result transmitted ref erence range: <=5.6%. The reference range was not used to int erpret this result as normal/abnormal . "The A1c is measured using a [facility]-certified method. HbA1c value equal to or greater than 6.5% as thediagnosis cutoff for diabetes. An HbA1c value of 5.7- 6.4% indicates increased risk for diabetes (prediabetes)."Scada Engineer ID - ADM (CELLAVISION MANUAL DIFF)2022-08-01 08:26:35 [...] CONCENTRATION Decreased (CELLAVISION)(BEAKER) (test code = 3438) Scada Engineer ID - Remy Carrerao-onUser comments: Slide comments:CBC W/PLT COUNT & AUTO [id number] 08:26:34 Test Item Value Reference Range Interpretation [...] (BEAKER) (test code = 413) HCG, QUANTITATIVE, [id number] 05:48:18 Test Item Value Reference Range Interpretation Comments GONADOTROPIN, CHORIONIC (HCG) QUANT < mIU/mL 0-10 (BEAKER) (test code = 649) Non- Females: <10 mIU/mL Females: Gestation Age Reference Range(mIU/mL) 0.2-1 Week 5-50 1-2 Weeks 50-500 2-3 Weeks 100-5,000 3-4 Weeks 500-10,000 4-5 Weeks 1,000-50,000 5-6 Weeks 10,000-100,000 6-8 Weeks 15,000- 200,000 2-3 Months 10,000-100,000 Scada Engineer ID - FLASHBASI METABOLIC PANEL 2022-08-01 05:41:39 Test Item Value [...] not appl icable for dialysis patien ts Scada Engineer ID - DAMIÁN WSpecimen moderately pkjwmufSGKEPENQM6858-15-17 05:41:38 Test Item Value Reference Range Interpretation Comments MAGNESIUM (BEAKER) (test code = 1.7 mg/dL 1.6-2.6 627) Scada Engineer ID - DAMIÁN IFBSESOOPSL1249-93-53 05:41:38 Test Item Value Reference Range Interpretation Comments PHOSPHORUS (BEAKER) (test code = 3.0 mg/dL 2.3-4.7 604) Scada Engineer ID Gisele STEEL WPT/DREI2568-16-28 05:39:59 Test Item Value Reference Range Interpretation [...] 2.5-3.5 for patients with mechanical heart valves.LIPID [id number] 22:24:08 Test Item Value Reference Range Interpretation [...] Borderline 130-159 High 160-189 Very High >=190 Scada Engineer ID - [id number] ID - [id number] ID - [id number] slightly icteric U/S, ENDOVAGINAL (EV)2022-07-31 14:38:00Reason for exam:->concern for [facility] GEET[facility] L : 1975 Sex: FFINAL [...] follow-up imaging with ultrasound. Signed: Shauna Duran MDRepselect specialty hospital Verified Date/Time: 07/31/2022 14:38:44 U/S, [id number] 14:38:00Reason for exam:->concern for [facility] IV[facility]NGEETHA Irineo : 1975 Sex: FFINAL REPORT [...] follow-up imaging with ultrasound. Signed: Shauna Duran [facility] Verified Date/Time: 07/31/2022 14:38:44 U/S, DUPLEX, [id number] 14:38:00 [facility] : 1975 Sex: FFINAL REPORT [...] follow-up imaging with ultrasound. Signed: Shauna Duran MDR[facility] Verified Date/Time: 07/31/2022 14:38:44 CBC W/PLT COUNT & AUTO [id number] 03:57:39 Test Item Value Reference Range Interpretation [...] H PERCENT (BEAKER) (test code = 2801) [id number] 03:56:52 Test Item Value Reference Range Interpretation Comments MAGNESIUM (BEAKER) (test code = 1.5 mg/dL 1.5-3.0 627) Scada Engineer ID - [id number] ID - DRHO32Bvmswsgl ID - XIPL92Vpqisnag ID - [id number] BASIC METABOLIC [id number] 03:55:31 Test Item Value Reference Range Interpretation [...] not appl icable for dialysis patien ts Scada Engineer ID - [id number] ID - FMBB42Qtuzzvgp ID - XEPB53Fzxskaze ID - KCFI70Zfwltkxv ID - XJJO16Spqhilhu ID - ZHXQ17Xwwwibai ID - FTED74Hgxeinml ID - ACIH25Vgbmqfqf ID - ULOB97Eiutrpkg slightly dqoavnzELBLVPZEJH5488-63-80 03:54:07 Test Item Value Reference Range Interpretation Comments PHOSPHORUS (BEAKER) (test code = 4.0 mg/dL 2.5-4.5 604) Scada Engineer ID - [id number] 18:37:08 Test Item Value Reference Range Interpretation Comments MAGNESIUM (BEAKER) (test code = 1.6 mg/dL 1.5-3.0 627) Scada Engineer ID - [id number] ID - [id number] ID - [id number] ID - [id number], CHEST, 1 VIEW, NON [id number] 16:51:00Reason for exam:->SOB, wheezingShould this be performed at the bedside?->Yes [facility] : 1975 Sex: FFINAL REPORT RAD, CHEST, 1 VIEW, NON DEPT TECHNIQUE: Frontal view(s) of the chest. INDICATION: SOB, wheezing COMPARISON: None FINDINGS/IMPRESSION: Lines/Tubes: None Lungs/pleura: No consolidation. Mild perihilar prominence with mild interstitial opacities, may represent mild edema. No pleural effusion. No pneumothorax. Heart and Mediastinum: Unremarkable. Soft Tissues and Bones: Unremarkable. Signed: Sarah Carrera MDReport Verified Date/Time: 07/30/2022 16:51:52 Reading Location: [facility] Radiology Reading Room BASI METABOLIC PANEL 2022-07-30 [...] not appl icable for dialysis patien ts Scada Engineer ID - [id number] ID - [id number] ID - [id number] ID - [id number] ID - PRTRZ926Sveaovra ID - GXLBL135Ruveqsko ID - CJJZI178Riafkhik ID - SBPNF592Ephkmnus ID - BNQFN274Cfetqclf ID - GIQAY358Tdeflezs ID - AZVFF034Lmtuibbk ID - [id number] TIME/INR 2022-07-30 16:00:01 Test Item Value Reference [...] mechanical heart valves.CBC W/PLT COUNT & AUTO [id number] 15:52:31 Test Item Value Reference Range Interpretation [...] PERCENT (BEAKER) (test code = 2801) TISSUE [id number] 12:09:00Surgical Pathology Report Case: [id number] Authorizing Provider: Trudy James MD Collected: 02/17/2019 1126 Ordering Location: [address] Received: 02/17/2019 1147 Service Pathologist: Angela Beach MD Specimen: Gallbladder A. GALLBLADDER, CHOLECYSTECTOMY: - CHRONIC CHOLECYSTITIS WITH CHOLELITHIASIS. Signing Pathologist Direct Phone Line: [phone] signed by Angela Beach MD on 02/19/2019 at 12:09 [id number] renal mass Gallbladder Received in formalin labeled [...] trabeculated. The wall measures 0.2 cm thick. Gripper Installer sections are submitted in A1-A2, with the inked proximal margin is A1. PA/ew Performed.[facility], Department of Pathology, [address] [place] [address], FlppfgHuntington Beach [facility], Department of Pathology,[address] [place] [address], IohjgaHuntington Beach [facility] and [facility], Departmentof Pathology, [address] [place] [address], SDG W/PLT COUNT & AUTO [id number] 07:03:00 Test Item Value Reference Range Interpretation [...] (BEAKER) (test code = 2801) BASIC METABOLIC [id number] 06:57:00 Test Item Value Reference Range Interpretation [...] APPLICABLE FOR DIALYSIS PATIEN TS. HEPATIC FUNCTION [id number] 06:57:00 Test Item Value Reference Range Interpretation [...] (test code = 347) hemolyzed HEPATIC FUNCTION [id number] 06:57:00 Test Item Value Reference Range Interpretation [...] 72 U/L 6-55 H 347) BASIC METABOLIC [id number] 06:57:00 Test Item Value Reference Range Interpretation [...] PATIEN TS. CBC W/PLT COUNT & AUTO [id number] 06:28:00 Test Item Value Reference Range Interpretation [...] PERCENT (BEAKER) (test code = 2801) SCREEN, [id number] 07:28:00 Test Item Value Reference Range Interpretation Comments TEST URINE (BEAKER) (test Negative code = 583) [id number] 07:28:00 Test Item Value Reference Range Interpretation Comments MAGNESIUM (BEAKER) 2.0 mg/dL 1.6-2.6 Specimen moderately (test code = 627) hemolyzed [id number] 07:28:00 Test Item Value Reference Range Interpretation Comments PHOSPHORUS (BEAKER) 4.0 mg/dL 2.3-4.7 Specimen moderately (test code = 604) hemolyzed BASIC METABOLIC [id number] 07:28:00 Test Item Value Reference Range Interpretation [...] APPLICABLE FOR DIALYSIS PATIEN TS. HEPATIC FUNCTION [id number] 07:28:00 Test Item Value Reference Range Interpretation [...] Specimen moderately (test code = 347) hemolyzed [id number] 07:28:00 Test Item Value Reference Range Interpretation Comments LIPASE (BEAKER) (test code = 749) 31 U/L 8-78 CBC W/PLT COUNT & AUTO [id number] 07:10:00 Test Item Value Reference Range Interpretation [...] (BEAKER) (test code = 2801) U/S, ABDOMINAL, [id number] 23:50:00Abdomen limited area? Add comment if clarification [...] Date/Time: 02/15/2019 23:50:53 URINALYSIS W/ REFLEX URINE [id number] 22:43:00 Test Item Value Reference Range Interpretation [...] SOURCE(BEAKER) (test code = 2795) HEPATIC FUNCTION [id number] 17:03:00 Test Item Value Reference Range Interpretation [...] Specimen slightly (test code = 347) hemolyzed [id number] 16:00:00 Test Item Value Reference Range Interpretation Comments MAGNESIUM (BEAKER) 2.1 mg/dL 1.6-2.6 Specimen slightly (test code = 627) hemolyzed BASIC METABOLIC [id number] 16:00:00 Test Item Value Reference Range Interpretation [...] hemolyz ed (test code = 364) PROTHROMBIN TIME/[id number] 15:31:00 Test Item Value Reference Range Interpretation [...] is 2.5-3.5 for patients wiht mechanical heart valves.[id number] 15:31:00 Test Item Value Reference Range Interpretation Comments PARTIAL THROMBOPLASTIN TIME 31.4 seconds 22.5-36.0 (BEAKER) (test code = 760) CBC W/PLT COUNT & AUTO [id number] 15:14:00 Test Item Value Reference Range Interpretation [...] Consult Notes Date/Time Note Provider Source 2022-11-28 0079-82-95Y27:23:09Associated Patrick Wallace OT [facility] 10:23:09 Order(s): CONSULT ADULT OCCUPATIONAL THERAPY OT GENERAL EVALUATIONConsult received via Symptify, EMR reviewed and evaluation completed 11/28/22. Patient referred to occupational therapy for evaluation and treatment. Patient is 47 year old female with chest pain, NSTEMI. 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 46757-4Moxxkmn irumAP8599-63-80A28:15:28Consult noteTXT1.2.840.134902.1.13.104.2.7.2 .608159|[id number] for patient rstm17641-0Cxhrpdc osycQE202832788Luvllb C Lawas [address][id number] YUINYNXQGYFZNUDHZTIZTP3217-52-48N41: 15:281.2.840.561521.1.72.3.15|1.2.84 0.042087.1.13.104.2.7.2.727879_18983 97399 2022-11-28 7531-36-16Q10:45:00Associated Savanna Larry [facility] 09:45:00 Order(s): CONSULT ADULT PHYSICAL THERAPY Patient [...] setting of methamphetamine use), CAD c/b unspecified [place] (02/2022 per CareEverywhere), HFpEF, hypertension, hyperlipidemia, COPD, GERD, and seizure disorder (not on medications) presenting as a transfer from [facility] for NSTEMI. Troponin peaked at [...] setting of methamphetamine use), CAD c/b unspecified [place] (02/2022 per CareEverywhere), HFpEF, hypertension, hyperlipidemia, COPD, GERD, and seizure disorder (not on medications) presenting as a transfer from [facility] for NSTEMI. Troponin peaked at [...] a SS house, and sisterDME: Wheel Chair s7Wjmkk level of Mobility: requires assistance with transfers, requires assistance with bed mobility, uses w/c primarily, family/caregiver. Per patient, her sister puts her on the wheelchair, pushes her on the wheelchair since 2022Suspected ischemic or hemorraghic stroke:Yes, Pre-Stroke Modified Appleton Score: 4 - Moderately severe disability; unable to walk without assistance and unable to attend to own bodily needs without assistance Subjective: "My sister pushes me around"Patient/Family Goals: To go homePatient/Family verbalizes understanding of condition: Yes PAIN: denies pain before and after sessionCOMMUNICATIONPrimary Language: Argentine Able to Verbalize needs: Yes Vision:good; no [...] Time in Minutes: 33 minSavanna Juarez PT, DPTUnWilson N. Jones Regional Medical CenterRehabilitation Services A physical therapy evaluation [...] clinical presentation with unstable and unpredictable characteristics 13370-6Juootue nfhdFA4407-60-83P76:53:18Consult noteTXT1.2.840.245322.1.13.104.2.7.2 .837445|[id number] for patient svuc06646-4Lnmnmal ioukZF498677268Gdvtfm Pallera [id number] POSMVZFGPJRJTIYSOKOEYX9969-07-12U61: 53:181.2.840.609022.1.72.3.15|1.2.84 0.299716.1.13.104.2.7.2.727879_18983 13415 2022-11-25 5232-05-34U42:49:18Associated PN-NEUROLOGY [facility] 18:49:18 Order(s): CONSULT NEUROLOGY STROKE SERVICE [...] with Dr. Rivera, Neurology Faculty Stroke pager: [phone] Shahnaz Borges, JOHN [facility]. ANDREW MEMORIAL HOSPITALGY-4, NeurologyPager: [phone] signed by Romaine Rivera MD at 11/26/2022 [...] reported) and/or communicating results to the patient/family/caregiver. 63862-2Qsadgny ewczDX7106495Tblkcilx, Hashem1.2.840.670750.1.13.104.2.7.2. 518087BiyzvcstZowczoDA1408-76-13Z52: 21:11Consult noteTXT1.2.840.261008.1.13.104.2.7.2 .473149|[id number] for patient lddz03563-6Ncunlkv xvaeMLEI-OXWAWIPYHCP-DFSQMAAXEYPARDG [address] Ol[id number] YPBJPRHIZHCCGRMBTEFUHE5683-97-44L05: 21:111.2.840.411728.1.72.3.15|1.2.84 0.184142.1.13.104.2.7.2.727879_18956 97065 2022-11-25 0143-95-11L46:00:00Associated Analy Morris [facility] 18:00:00 Order(s): CONSULT PS PASTORAL Filippo CARE Infrastructure Tech visited with patient in response to consult for pastoral care and support. Patient was awake and acknowledged studio model's presence. Pt was alone in room. The Pt said she was of Baptism nicole. The PT. Expressed to the Infrastructure Tech of some fear,about her upcomming surgery that going to be done on her heart.Pt asked the Infrastructure Tech to pray for her and for God to give her peace. The Infrastructure Tech provided spiritual support through prayer of healing, peace and comfort. Infrastructure Tech provided pastoral presence, and validated feelings. Pastoral care will continue to follow up as needed. Rev.Analy Ferro [facility] Department of Pastoral CarePh: [phone]: [phone] 21660-7Logqjqk iyfyIT9203-80-44T54:31:33Consult noteTXT1.2.840.993042.1.13.104.2.7.2 .946652|[id number] for patient dlgx44238-2Hsotufs bxgpGO888208816Djtifjo M [id number] FMXILNJGVHVREZBWZTLORB9229-10-52D79: 31:331.2.840.980948.1.72.3.15|1.2.84 0.889700.1.13.104.2.7.2.727879_18956 44403 2022-11-25 1465-43-01U33:53:13Associated PED-PEDIATRICS [facility] 10:53:13 Order(s): CONSULT ALLERGY ALLERGY & IMMUNOLOGY CONSULT NOTEDATE OF SERVICE: 11/25/22REASON FOR CONSULT: Aspirin allergyHPI: Patient is a 47 year old female with a past medical history significant for recent hemorrhagic stroke (10/29/22; 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 - Plan also explained to via citizen of [place] translatorPatient seen with Dr. Magaña. Thank you [...] see the fellow's note for additional details. 34916-7Gjcihcq ysikIF4345934Pbbr, Alexandra1.2.840.296861.1.13.104.2.7.2.8 72506JzzgVzopmRQ6329-57-47U50:58:19C onsult noteTXT1.2.840.940960.1.13.104.2.7.2 .093642|5126970574YBYywxysffa for patient olrx85632-3Xmdbduj rxhoTTVBH-GDQHAJBAIQWTQ-FYPZASQIOEWY MBUTMB - Health[address] [employer] SvkuZfrhnugqlIygrccbxuDHDB2980562109 VUXGZLOSXLATEYLPDNVNFD2063-38-83E17: 58:191.2.840.743716.1.72.3.15|1.2.84 0.394587.1.13.104.2.7.2.727879_18954 59679 2022-11-24 1985-02-70F28:08:12Associated NS-NEUROLOGICAL [facility] 16:08:12 Order(s): CONSULT SURGERY NEUROSURGERY NEUROSURGERY CONSULTATION HISTORY AND PHYSICALAttending Neurosurgeon: Dr. 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), CAD c/b unspecified [place] (02/2022 per CareEverywhere), HFpEF, hypertension, hyperlipidemia, COPD, GERD, and seizure disorder (not on medications) presenting as a transfer from [facility] for NSTEMI currently on heparin [...] 100% 100% Weight: Height: Awake, alert, oriented g8WISJO bilaterally at 3mmEOMI bilaterallySlight left lower facial [...] setting of methamphetamine use), CAD c/b unspecified [place] (02/2022 per CareEverywhere), HFpEF, hypertension, hyperlipidemia, COPD, GERD, and seizure disorder (not on medications) presenting as a transfer from [facility] for NSTEMI currently on heparin drip. NSGY consulted for recs regarding heparin in light of recent hemorrhagic stroke. Pt at neurologic baseline s/p stroke.Recommendations:No neurosurgical interventionPlease consult neurology for management and recommendations of anticoagulation w/ hx of hemorrhagic strokeWill sign off at this timeChristian MD CindyNeurosurgery ServiceFor inquiries please page [phone] signed by Burton Howell MD at 11/25/2022 12:23 PM CDTAssociated attestation - Burton Howell MD - 11/25/2022 12:23 PM CDT I personally evaluated and am primary in decision making on, Geetha Minor, and I agree with the documentation by Sinan White MD,neurosurgery resident.92524-6Gjxhbog [id number], Rudy P1.2.840.664204.1.13.104.2.7.2.92661 4ObegshWrbpSKZ7646-29-16N61:23:14Con [facility] noteTXT1.2.840.407148.1.13.104.2.7.2 .488007|[id number] for patient njtn33850-4Xuqbcdr noteLNNS-NEUROLOGICAL SURGERYNS-NEUROLOGICAL SURGERY24 Case [id number] [id number]: [id number] [id number] History and Physical Notes Date/Time Note Provider Source 2022-11-24 11:33:08 [id number]:[id number] of this note [facility] is different from the original.Images from the original note were not included.CCU History and Physical Date of Service: 11/24/2022 15:48 ICU day: Intubation Day: CHIEF COMPLAINT: Chest painHistory of Present IllnessGeetha Minor is a 47 year old female with a past medical history significant for recent hemorrhagic stroke (10/29/22; 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 On my interview, [...] for amphetamines during her recent hospitalization.Workup at [facility] showed ST depression and TWI in [...] 454 ms QTC Calculation(Bazett) 460 ms P Edd[place] 19 degrees R Eddington 64 degrees T Eddington 254 degrees Normal sinus rhythm Possible Left [...] sedated at [facility]SH prior to transfer to [facility], extubated on 10/30, required nicardipine gtt and [...] develop- Sedation/Analgesia: NoneRespCOPDHx tobacco abuse- DuoNebs prn- I6YWBhjvjxecxpdfgmTQRLCFZvtyx painReported CAD HFpEFBradycardiaHTNHLDPatient presenting as a transfer from [facility] with NSTEMI. Troponin elevated here on [...] evaluation of volume status- CXR- Will need [facility] this admission- Continue Plavix (allergic to ASA)- [...] prophylaxis: heparinLines/Catheters:Peripheral IV 11/24/22 Right Antecubital Inserted STONE DRILLER (Active) Number of days: 0 Dispo: CCUPrognosis: GuardedCode Status: Maricarmen Willis, CHANTALEGY-3, Department of Internal Medicine ssociated attestation - [...] ordering referrals and/or communicating with other health occasional caregiver (when not separately reported), documenting clinical information in the electronic or other health record, and care coordination (not separately reported).- hemodynamically stable- Neurosurgery consult for systemic AC / DAPT in the future, given h/o ICH- allergy consult for ASA desensitizationJOSE Cierra GONZALEZ MD, [facility], [facility], [facility]ITALAAssistant ProfessorCardiology, Advanced Heart Failure, LVAD & Transplant ServiceDate of service: [id number] and physical [id number]-Nocsnvmm, Jose [id number] rweoh-[id number]:30:41Hi story and physical [id number] for patient [id number] and physical noteLNUTMB[address] En[id number] [id number]:30:[id number] .[id number]. [id number]
[2023-01-08 17:08] LABS: Absolute Lymphocytes (CBC) 1.8 K/uL (0.7-4.9); Hematocrit 38.5 % (36.0-45.0); Lymphocytes % 23.8 % (15.3-44.8); MCV 93.9 fL (80-100); Platelets 307 thou/uL (152-406)
[2023-01-08] MEDS ORDERED: NA CHLORIDE 0.9% 500 ML ONE (17:11)
[2023-01-08 17:27] LABS: Magnesium 1.8 mg/dL (1.6-2.4); Potassium 4.7 mEq/L (3.5-5.1); Troponin High Sensitivity 54.4 pg/mL (<58.9)
--- NOTE | 2023-01-08 18:05 | RAD REPORT ---
EXAM DESCRIPTION: RADChest Single View01/08/2023 5:28 pm CLINICAL HISTORY: CHEST PAIN COMPARISON: Chest Single View dated 01/03/2023; Chest Single View dated 12/26/2022; Chest Single Vie w dated 12/23/2022; Chest Single View dated 12/20/2022 TECHNIQUE: Portable AP view of the chest. FINDINGS: The lungs are clear. No pneumothorax or effusion. The cardiomediastinal contours are unrem arkable. IMPRESSION: No acute cardiopulmonary process.
[2023-01-08] MEDS ORDERED: HYDROCODONE/APAP 5/325 MG TAB ONE (18:30)
--- NOTE | 2023-01-08 18:42 | EDPHYS ---
Physician Documentation [facility] Name: Geetha Khan Age: 47 yrs Sex: Female : 1975 Arrival Date: 01/08/2023 Time: 16:03 Bed 8 Private MD: TORI Physician Michael Grimm HPI: 01/08 17:14 This 47 yrs old Female presents to ER via EMS with complaints of chest pain. kb 17:14 The patient or guardian reports chest pain that is located primarily in the substernal kb area. Onset: 1 hour(s) ago. The pain does not radiate. Associated signs and symptoms: Pertinent positives: dizziness. The chest pain is described as stabbing. Duration: The patient or guardian reports a single episode, that is still ongoing. Modifying factors: The symptoms are alleviated by nothing. the symptoms are aggravated by deep breath. Severity of pain: At its worst the pain was moderate in the emergency department the pain is unchanged. The patient has experienced similar episodes in the past, several times. The patient has not recently seen a physician. 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 - Social history:: Smoking status: Patient reports the use of cigarette tobacco products, smokes one-half pack cigarettes per day. ROS: 17:15 Constitutional: Negative for fever, chills, and weight loss, kb 17:15 Cardiovascular: Positive for chest pain, 17:15 All other systems are negative, 17:15 Neuro: Positive for dizziness, kb Exam: 17:15 Constitutional: This is a well developed, well nourished patient who is awake, alert, kb and in no acute distress. Head/Face: Normocephalic, atraumatic. ENT: Moist Mucous membranes Chest/axilla: Normal chest wall appearance and motion. Cardiovascular: Regular rate Respiratory: Respirations even and unlabored. No increased work of breathing. Talking in full sentences Abdomen/GI: Soft, non-tender. No distention Skin: Warm, dry with normal turgor. Normal color. MS/ Extremity: Pulses equal, no cyanosis. Neurovascular intact. Full, normal range of motion. Neuro: Awake and alert, GCS 15, oriented to person, place, time, and situation. Moves all extremities. Normal gait. Vital Signs: 16:20 BP 99 / 64; Pulse 70; Resp 16; Temp 98.2(TE); Pulse Ox 97% on R/A; Weight 63.5 kg (R); cm10 Height 5 ft. 2 in. (R); Pain 10/10; 16:30 BP 100 / 72; Pulse 68; Resp 17; Temp 98(O); Pulse Ox 99% on R/A; rs5 17:35 BP 105 / 68; Pulse 64; Resp 18; Pulse Ox 99% on R/A; rs5 18:26 BP 102 / 67; Pulse 57; Pulse Ox 99% on R/A; rs5 19:15 BP 89 / 69; Pulse 57; Pulse Ox 97% ; nw1 20:15 BP 93 / 79; Pulse 59; Pulse Ox 95% ; nw1 16:20 Body Mass Index 25.61 (63.50 kg, 157.48 cm) cm10 16:20 Pain Scale: Adult cm10 MDM: 16:36 Patient medically screened. kb 17:15 Differential diagnosis: abnormal EKG, acute myocardial infarction, coronary artery kb disease chest wall pain, congestive heart failure. The patient was not given aspirin in the Emergency Department. Not indicated due to patient's past medical history. Data reviewed: vital signs, nurses notes. Historians other than the Patient: EMS: [facility]. 18:40 Consideration of Admission/Observation Patient was admitted/placed on observation. kb Escalation of care including admission/observation considered. Management of patient was discussed with the following: Hospitalist: Eligio, accepts pt for admission. Counseling: I had a detailed discussion with the patient and/or guardian regarding the historical points, exam findings, and any diagnostic results supporting the discharge/admit diagnosis, lab results, radiology results, the need for further work-up and treatment in the hospital. ED course: Creatinine increased from 1.09 to 1.79 and GFR from 63 to 35 since December 27. Will admit for acute renal failure and chest pain. 01/08 16:37 Order name: Basic Metabolic Panel; Complete Time: 17:30 kb 01/08 16:37 Order name: CBC with Diff; Complete Time: 17:13 kb 01/08 16:37 Order name: Magnesium; Complete Time: 17:30 kb 01/08 16:37 Order name: NT PRO-BNP; Complete Time: 17:30 kb 01/08 16:37 Order name: Troponin HS; Complete Time: 17:30 kb 01/08 20:16 Order name: Urinalysis w/ reflexes EDMS 01/08 21:03 Order name: Glucose, Ancillary Testing; Complete Time: 21:10 EDMS 01/08 16:37 Order name: XRAY Chest (1 view); Complete Time: 18:12 kb 01/08 16:37 Order name: EKG; Complete Time: 16:38 kb 01/08 16:37 Order name: Cardiac monitoring; Complete Time: 17:02 kb 01/08 16:37 Order name: EKG - Nurse/Tech; Complete Time: 16:41 kb 01/08 16:37 Order name: IV Saline Lock; Complete Time: 17:02 kb 01/08 16:37 Order name: Labs collected and sent; Complete Time: 17:02 kb 01/08 16:37 Order name: O2 Per Protocol; Complete Time: 17:02 kb 01/08 16:37 Order name: O2 Sat Monitoring; Complete Time: 17:02 kb Administered Medications: 16:41 CANCELLED (Duplicate Order): ns 0.9% 1000 ml IV at 1000 ml once kb 17:02 Drug: NS 0.9% IV 500 ml IV at bolus once Route: IV; Rate: bolus; Site: right wrist; rs5 17:16 Follow up: Response: No adverse reaction rs5 18:18 Drug: HYDROcodone-acetaminophen PO 5 mg-325 mg 1 tabs PO once Route: PO; rs5 21:10 Drug: Ondansetron IVP 4 mg IVP once; over 2 minutes Route: IVP; Rate: bolus; Infused la4 Over: 1 mins; Site: right forearm; 21:11 Drug: fentaNYL (PF) IVP 25 mcg IVP once Route: IVP; Rate: bolus; Infused Over: 1 mins; la4 Site: right forearm; Disposition Summary: 01/08/23 18:42 Hospitalization Ordered Notes: Hospitalization Status: Observation kb Provider: Giovanni Del Valle Location: Telemetry/MedSurg (observation) kb Condition: Stable kb Problem: new kb Symptoms: are unchanged kb Bed/Room Type: Standard Room Assignment: 426(01/08/23 20:27) mw Diagnosis - Acute kidney failure, unspecified kb - Chest pain, unspecified kb Forms: - Medication Reconciliation Form kb - SBAR form kb - Leadership Thank You Letter kb Signatures: Dispatcher [employer] EDMS Kathy Kerns, LC-C FINISH PATCHER-Teresa Armstrong RN RN Anjel Lloyd, RN RN rs5 Kelsey Khan, RN RN cm10 Alessandra Hill RN RN la4 Corrections: (The following items were deleted from the chart) 16:41 16:37 NS 0.9% IV 1000 ml IV at 1000 ml once ordered. kb kb 17:15 17:15 Constitutional: Negative for fever, chills, and weight loss, kb kb 20:27 18:42 kb mw
--- NOTE | 2023-01-08 18:42 | ER ---
Nurse's Notes [facility] Name: Geetha Khan Age: 47 yrs Sex: Female : 1975 Arrival Date: 01/08/2023 Time: 16:03 Bed 8 Private MD: Diagnosis: Acute kidney failure, unspecified;Chest pain, unspecified Presentation: 01/08 16:20 Chief complaint: Patient states: Chest pain to the center of her chest onset 1hr CONCIERGE. cm10 Pt describes the pain "like a knife is stabbing me" and rates the pain 10/10. Pt states that the pain does not radiate and taking a deep breath makes the pain worse. Coronavirus screen: Vaccine status: Patient reports being unvaccinated. Client denies travel out of the [place] in the last 14 days. Ebola Screen: Patient denies travel to an Ebola-affected area in the 21 days before illness onset. No symptoms or risks identified at this time. Initial Sepsis Screen: Does the patient meet any 2 criteria? No. Patient's initial sepsis screen is negative. Does the patient have a suspected source of infection? No. Patient's initial sepsis screen is negative. Risk Assessment: Do you want to hurt yourself or someone else? Patient reports no desire to harm self or others. Onset of symptoms was January 08, 2023. 16:20 Method Of Arrival: EMS: [facility] 10 16:20 Acuity: CORRINA 2 cm10 Triage Assessment: 16:22 General: Appears in no apparent distress. comfortable, Behavior is calm, cooperative. cm10 Pain: Complains of pain in chest Pain does not radiate. Pain currently is 10 out of 10 on a pain scale. Quality of pain is described as sharp, Pain began 1 hour ago. Neuro: No deficits noted. Level of Consciousness is awake, alert, obeys commands, Oriented to person, place, time, situation. Cardiovascular: No deficits noted. Patient's skin is warm and dry. Respiratory: No deficits noted. Airway is patent Respiratory effort is even, unlabored, Respiratory pattern is regular, symmetrical. 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 - Social history:: Smoking status: Patient reports the use of cigarette tobacco products, smokes one-half pack cigarettes per day. Screenin:25 [facility] ED Fall Risk Assessment (Adult) History of falling in the last 3 months, rs5 including since admission No falls in past 3 months (0 pts) Confusion or Disorientation No (0 pts) Intoxicated or Sedated No (0 pts) Impaired Gait No (0 pts) Mobility Assist Device Used No (0 pt) Altered Elimination No (0 pt) Score/Fall Risk Level 0 - 2 = Low Risk Oriented to surroundings, Maintained a safe environment. Abuse screen: Denies threats or abuse. Nutritional screening: No deficits noted. Tuberculosis screening: No symptoms or risk factors identified. Assessment: 16:25 General: Appears in no apparent distress. uncomfortable, Behavior is calm, cooperative. rs5 Pain: Complains of pain in chest Pain does not radiate. Pain currently is 5 out of 10 on a pain scale. Quality of pain is described as aching, sharp, Pain began 1 hour ago. Is continuous. Neuro: Level of Consciousness is awake, alert, obeys commands, Oriented to person, place, time, situation. Cardiovascular: Heart tones S1 S2 present Rhythm is regular. Respiratory: Airway is patent Respiratory effort is even, unlabored, Respiratory pattern is regular, symmetrical, Breath sounds are clear bilaterally. GI: Abdomen is round non-distended, Bowel sounds present X 4 quads. Abd is soft and non tender X 4 quads. : No signs and/or symptoms were reported regarding the genitourinary system. EENT: No signs and/or symptoms were reported regarding the EENT system. Derm: Skin is intact, Skin is pink, warm \\T\\ dry. Musculoskeletal: Range of motion: limited in left lower extremity and left upper extremity Pt states "I had a stroke several years ago and I am paralyzed on my left side." Pt reports still having sensation on left lower and upper extremity. 17:20 Reassessment: Patient and/or family updated on plan of care and expected duration. Pain rs5 level reassessed. Patient is alert, oriented x 3, equal unlabored respirations, skin warm/dry/pink. 18:15 Pain: Complains of pain in chest Pain does not radiate. Pain currently is 8 out of 10 rs5 on a pain scale. Quality of pain is described as aching, Is continuous. Cardiovascular: Heart tones S1 S2 present Rhythm is regular. 18:15 Respiratory: Airway is patent Respiratory effort is even, unlabored, Respiratory rs5 pattern is regular, symmetrical. 19:38 General: Appears in no apparent distress. uncomfortable, Behavior is calm, cooperative. nw1 19:38 Pain: Complains of pain in chest Pain currently is 10 out of 10 on a pain scale. nw1 Cardiovascular: Heart tones present. Respiratory: Airway is patent Respiratory effort is even, unlabored, Respiratory pattern is regular, symmetrical. GI: Abdomen is flat, non-distended, Bowel sounds present X 4 quads. Abd is soft and non tender X 4 quads. : No signs and/or symptoms were reported regarding the genitourinary system. Derm: Skin is intact, Skin is pink, warm \\T\\ dry. Musculoskeletal: Range of motion: limited in left shoulder, left elbow and left wrist Reports JOSE weakness from stroke. 20:36 General: Attempted to call report, notified that nurse is not on unit and is in ICU at la4 this time. Will attempt to call report at a later time. . Vital Signs: 16:20 BP 99 / 64; Pulse 70; Resp 16; Temp 98.2(TE); Pulse Ox 97% on R/A; Weight 63.5 kg (R); cm10 Height 5 ft. 2 in. (R); Pain 10/10; 16:30 BP 100 / 72; Pulse 68; Resp 17; Temp 98(O); Pulse Ox 99% on R/A; rs5 17:35 BP 105 / 68; Pulse 64; Resp 18; Pulse Ox 99% on R/A; rs5 18:26 BP 102 / 67; Pulse 57; Pulse Ox 99% on R/A; rs5 19:15 BP 89 / 69; Pulse 57; Pulse Ox 97% ; nw1 20:15 BP 93 / 79; Pulse 59; Pulse Ox 95% ; nw1 16:20 Body Mass Index 25.61 (63.50 kg, 157.48 cm) cm10 16:20 Pain Scale: Adult cm10 ED Course: 16:05 Patient arrived in ED. iw 16:21 Triage completed. cm10 16:23 Arm band placed on Patient placed in an exam room, on a stretcher. cm10 16:25 Patient has correct armband on for positive identification. Placed in gown. Bed in low rs5 position. Call light in reach. Side rails up X2. 16:25 Inserted saline lock: 22 gauge in right wrist, using aseptic technique. rs5 16:29 EKG completed in triage. Results shown to MD. cm10 16:29 EKG done, by ED staff. cm10 16:36 Kathy Kerns FNP-C is PHCP. kb 16:36 Michael Grimm MD is Attending Physician. kb 16:57 Anjel Lloyd, YANETH is Primary Nurse. rs5 17:30 XRAY Chest (1 view) In Process Unspecified. EDMS 18:28 No provider procedures requiring assistance completed. rs5 18:41 Giovanni Del Valle MD is Hospitalizing Provider. kb 20:11 Primary Nurse role handed off by Anjel Lloyd, YANETH as6 20:40 Patient admitted, IV remains in place. la4 20:58 Client placed on continuous cardiac and pulse oximetry monitoring. NIBP monitoring la4 applied. 20:59 Provided Education on: plan of care. la4 Administered Medications: 16:41 CANCELLED (Duplicate Order): ns 0.9% 1000 ml IV at 1000 ml once kb 17:02 Drug: NS 0.9% IV 500 ml IV at bolus once Route: IV; Rate: bolus; Site: right wrist; rs5 17:16 Follow up: Response: No adverse reaction rs5 18:18 Drug: HYDROcodone-acetaminophen PO 5 mg-325 mg 1 tabs PO once Route: PO; rs5 21:10 Drug: Ondansetron IVP 4 mg IVP once; over 2 minutes Route: IVP; Rate: bolus; Infused la4 Over: 1 mins; Site: right forearm; 21:11 Drug: fentaNYL (PF) IVP 25 mcg IVP once Route: IVP; Rate: bolus; Infused Over: 1 mins; la4 Site: right forearm; Medication: 18:28 VIS not applicable for this client. rs5 Outcome: 18:42 Decision to Hospitalize by Provider. kb 20:39 Admitted to Tele accompanied by tech, via stretcher, with chart, la4 20:39 Condition: improved 20:39 Instructed on the need for admit, 23:03 Admitted to Tele accompanied by tech, room 426, with chart, Report called to YANETH Beverly nw1 23:55 Patient left the ED. nw1 Signatures: Dispatcher [employer] EDMS Kathy Kerns, FORENSIC SCIENCE EXAMINER-C FORENSIC SCIENCE EXAMINER-Ckb Iqra Issa, RN RN iw Florentin Lester RN RN as6 Anjel Lloyd RN RN rs5 Kelsey Khan RN RN cm10 Alessandra Hill RN RN la4 Tori Issa, RN RN nw1 Corrections: (The following items were deleted from the chart) 16:22 16:20 Acuity: CORRINA 3 cm10 cm10
[2023-01-08] MEDS ORDERED: ACETAMINOPHEN 325 MG TABLET PO PRN (20:09)
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
[2023-01-08] MEDS ORDERED: FENTANYL CITR 100 MCG/2 ML ONE (20:57)
[2023-01-08] MEDS ORDERED: ONDANSETRON 4 MG/2 ML VIAL ONE (20:58)
[2023-01-09] MEDS: MORPHINE 2 MG/ML SYR IV PRN ×3 (05:50→20:16)
[2023-01-09 11:12] LABS: Potassium 4.7 mEq/L (3.5-5.1)
--- NOTE | 2023-01-09 11:40 | P.PN ---
Subjective Date of Service: 01/09/23 Chief Complaint: Evaluation of chest pain Patient is 47 years of age admitted with sudden onset of chest pain she has a history of coronary artery disease prior history of stent placement patient is a heavy active smoker prior history of COPD will complaining of chest discomfort Review of Systems 10-point ROS is otherwise unremarkable Cardiovascular: Chest Pain Physical Examination - Vital Signs Temperature: 97.1 F Blood Pressure: 98/60 Pulse: 64 Respirations: 17 Pulse Ox (%): 100 - Physical Exam General: Alert, Oriented x3 HEENT: Atraumatic Neck: Supple Respiratory: Normal air movement Cardiovascular: No edema, Normal pulses - Studies Laboratory Data (last 24 hrs) 01/08/23 01/08/23 16:56 16:56 WBC 7.50 Hgb 13.4 Hct 38.5 Plt Count 307 Sodium 134 L Potassium 4.7 BUN 32 H Creatinine 1.79 H Glucose 94 Magnesium 1.8 Assessment And Plan - Current Problems (Diagnosis) (1) Chest pain Current Visit: Yes Status: Acute Plan: Patient is 47 years of age heavy smoker history of coronary artery disease admitted with retrosternal chest pain sudden in onset renal function has worsened I will start her on IV fluid renal ultrasound troponins so far negative of ordered stress test cardiology consult urinalysis patient was on [place] inhibitor's we will hold EKG Normal sinus rhythm Left ventricular hypertrophy with repolarization abnormality Abnormal ECG Compared to ECG 01/03/2023 09:11:05 No significant changes Qualifiers: Chest pain type: unspecified Qualified Code(s): R07.9 - Chest pain, unspecified Discharge Plan: Home Plan to discharge in: 24 Hours
[2023-01-09] MEDS: ASPIRIN 81 MG CHEWABLE TABLET PO SCH (11:45)
[2023-01-09] MEDS: ENOXAPARIN 40 MG/0.4 ML SQ SCH (11:45)
--- NOTE | 2023-01-09 11:56 | EKG ---
Test Date: 2023-01-08 Test Time: 16:28:36 Filler Sifter Machine: JEANNA MEASUREMENT RESULTS: Intervals: Rate: 67 WI: 180 QRSD: 92 QT: 426 QTc: 450 [place]: P: 53 WI: 180 QRS: -1 T: 149 INTERPRETIVE STATEMENTS: Normal sinus rhythm Left ventricular hypertrophy with repolarization abnormality Abnormal ECG Compared to ECG 01/03/2023 09:11:05 No significant changes Electronically Signed On 01-09-23 11:55:30 CDT by Josse Olson
--- NOTE | 2023-01-09 14:05 | RAD REPORT ---
EXAM DESCRIPTION: US - Renal Ultrasound-Complete - 01/09/2023 1:38 pm CLINICAL HISTORY: Renal failure Renal failure, flank pain COMPARISON: Abdomen Exam Limited dated 11/24/2022 FINDINGS: The right kidney is small in size relative to the left. The right kidney measures 7.4 x 3.1 x 2.7 cm. No hydronephrosis, focal mass or perinephric fluid. The left kidney measures 9.2 x 4.3 x 3.9 cm. No hydronephrosis, focal mass or perinephric fluid. The urinary bladder is incompletely distended without gross abnormality seen. IMPRESSION: Mildly asymmetric renal size, with mild right renal atrophy. Otherwise, negative study.
[2023-01-09] MEDS: NA CHLORIDE 0.9% 1,000 ML IV SCH ×2 (16:16→20:16)
[2023-01-09] MEDS ORDERED: METOPROLOL XL 25 MG TAB PO SCH (21:00)
[2023-01-09] MEDS ORDERED: ATORVASTATIN 40 MG TAB PO SCH (21:00)
[2023-01-09] MEDS ORDERED: ALBUTEROL 2.5 MG/3 ML NEB SOL NEB PRN (23:32)
[2023-01-09] MEDS ORDERED: IPRATROPIUM BROM 0.5MG/2.5ML NEB PRN (23:32)
[2023-01-10] MEDS: MORPHINE 2 MG/ML SYR IV PRN ×3 (00:06→08:14)
[2023-01-10] MEDS: ASPIRIN 81 MG CHEWABLE TABLET PO SCH (08:14)
[2023-01-10] MEDS: ENOXAPARIN 40 MG/0.4 ML SQ SCH (08:14)
[2023-01-10] MEDS: NA CHLORIDE 0.9% 1,000 ML IV SCH (08:15)
[2023-01-10 08:48] LABS: Potassium 4.3 mEq/L (3.5-5.1)
--- NOTE | 2023-01-10 09:06 | P.DS ---
Admission Date: 01/08/23 Discharge Date: 01/10/23 Disposition: ROUTINE DISCHARGE Discharge Condition: GOOD Reason for Admission: Evaluation of chest pain Consultations: Cardiology - Dr. Olson Brief History of Present Illness: 47 yo F, PMH: hyperlipidemia, hypertension, history of tobacco Patient presented to ED with chest pain. She rated pain 3 out of 10 in intensity located in the retrosternal region. Sensation feels heavy and has no radiation down the left arm. She denies nausea, vomiting, fever, chills, rigor. She does have episode of cough but no fever or sputum production. She has no nasal congestion. Because of concerns for suspected ACS and her comorbid condition she was admitted for chest pain work-up. Hospital Course: Problem List: Chest pain DYLAN, resolved Chronic diastolic CHF h/o Seizure disorder Hypertension Hyperlipidemia h/o CVA Tobacco use Patient presented with chest pain. Troponins were negative. EKG without STEMI criteria. Chest xray negative for any acute findings. Cardiology was consulted. Given recent LHC/work up, recommend for outpatient work up in 1-2 weeks. No further workup this hospitalization. During her hospitalization, patients was noted to have mild DYLAN. Renal function improved with IV fluids and holding her home lisinopril. Suspect multifactorial etiology secondary to lisinopril use and dehydration. She was recently started on lisinopril. Blood pressure was noted to be low to low-normal while her lisinopril was held. On discharge, recommend to continue holding lisinopril, check blood pressure daily. Recommend to discuss further with PCP if needing further adjustments.Recommend repeat blood work in ~1 week to monitor renal function. Medication: Hold lisinopril Follow up: PCP 3-5 days Cardiology in 1-2 weeks Physical Exam: GEN: Alert, oriented, NAD HEENT: Normal conjunctiva, sclera anicteric CV: Regular rate and rhythm, no edema Pulm: Nonlabored respirations on room air, clear bilaterally ABD: Soft, nontender, nondistended Neuro: Normal speech, normal affect Vital Signs/Physical Exam: Temp Pulse Resp BP Pulse Ox 97.5 F 61 16 123/90 97 01/10/23 08:00 01/10/23 08:00 01/10/23 08:14 01/10/23 08:00 01/10/23 08:00 Laboratory Data at Discharge: WBC 7.50 thou/uL (4.3-10.9) 01/08/23 16:56 Hgb 13.4 g/dL (12.0-15.0) 01/08/23 16:56 Hct 38.5 % (36.0-45.0) 01/08/23 16:56 Plt Count 307 thou/uL (152-406) 01/08/23 16:56 Sodium 140 mEq/L (136-145) 01/10/23 08:20 Potassium 4.3 mEq/L (3.5-5.1) 01/10/23 08:20 BUN 27 mg/dL (7-18) H 01/10/23 08:20 Creatinine 1.13 mg/dL (0.55-1.02) H 01/10/23 08:20 Glucose 99 mg/dL (74-106) 01/10/23 08:20 Magnesium 1.8 mg/dL (1.6-2.4) 01/08/23 16:56 Triglycerides 103 mg/dL (<150) 01/09/23 03:28 Cholesterol 125 mg/dL (<200) 01/09/23 03:28 HDL Cholesterol 65 mg/dL (40-60) H 01/09/23 03:28 Cholesterol/HDL Ratio 1.92 01/09/23 03:28 Home Medications: Atorvastatin Calcium [Lipitor] 40 mg PO BEDTIME #30 tab 01/03/23 Folic Acid 1 mg PO DAILY #30 tab 01/03/23 Hydrocodone 5/APAP 325 [[place] 5/325*] 1 tab PO Q8H PRN 7 Days #30 tab 01/03/23 Metoprolol Succinate [Toprol Xl*] 25 mg PO BEDTIME #30 tab 01/03/23 lisinopriL [Prinivil*] 20 mg PO DAILY #30 tab 01/03/23 Physician Discharge Instructions: PROBLEM: Chest pain GOAL: Clear understanding of disease process INSTRUCTIONS: Patient presented with chest pain. Troponins were negative. EKG without STEMI criteria. Chest xray negative for any acute findings. Cardiology was consulted. Given recent LHC/work up, recommend for outpatient work up in 1-2 weeks. No further workup this hospitalization. During her hospitalization, patients was noted to have mild DYLAN. Renal function improved with IV fluids and holding her home lisinopril. Suspect multifactorial etiology secondary to lisinopril use and dehydration. She was recently started on lisinopril. Blood pressure was noted to be low to low-normal while her lisinopril was held. On discharge, recommend to continue holding lisinopril, check blood pressure daily. Recommend to discuss further with PCP if needing further adjustments.Recommend repeat blood work in ~1 week to monitor renal function. Medication: Hold lisinopril Follow up: PCP 3-5 days Cardiology in 1-2 weeks Diet: As tolerated Activity: As tolerated DME DME: Date Ordered: Name of Company: [employer] Services Needed: None Name of Company: Date or Referral: IMMUNIZATION Influenza Vaccine Indicated: No Influenza Vaccine Given: Date Given: Pneumonia Vaccine Indicated: No Pneumonia Vaccine Given: Date Given: Followup: NONE,NONE [Primary Care Provider] - Time spent managing pt's care (in minutes): 45
[2023-01-10 15:27] VITALS: BP 123/90; TEMP 97.5; O2SAT 95; BMI 25.6
== END 2023-01-10 10:55 | disposition home or self-care (01) ==
LOC: ER 16:03 → ERHOLD 20:12 → 4TH 20:42
PROVIDERS: ADMIT Internal Medicine Nephrology; ATTEND Hospitalist
DX: R07.9 Chest pain, unspecified (principal); I50.32 Chronic diastolic (congestive) heart failure; I25.10 Atherosclerotic heart disease of native coronary artery without angina pectoris; I10 Essential (primary) hypertension; N17.9 Acute kidney failure, unspecified; E78.5 Hyperlipidemia, unspecified; F17.210 Nicotine dependence, cigarettes, uncomplicated; J44.9 Chronic obstructive pulmonary disease, unspecified; R05.9 Cough, unspecified; Z86.73 Personal history of transient ischemic attack (TIA), and cerebral infarction without residual deficits; Z95.5 Presence of coronary angioplasty implant and graft; Z91.013 Allergy to seafood; Z91.018 Allergy to other foods; Z88.6 Allergy status to analgesic agent
CPT/HCPCS: 36415; 71045; 76770; 80048; 80061; 82947; 83735; 83880; 84484; 85025; 93005; 94640; 96374; 96375; 99285; G0378; J1650; J2270; J2405; J3010; J7030; J7040; J7613; J7644

== ENCOUNTER 2023-01-12 17:55 | Emergency (ER) | payer SELFPAY ==
--- OUTSIDE RECORDS SUMMARY | 2023-01-12 18:03 | XMS REPORT | Continuity of Care Document ---
:1975 Author Organization [facility] t Address [address] [place] [address] [place] [id number] Care Team Providers Name Role Phone PCP, PATIENT DOES NOT HAVE A Primary Care Physician UnavailZAHRA Stoner Attending Clinician Unavailable SUSIE TAI Attending Clinician Unavailable KATHY MAHMOOD Attending Clinician Unavailable MURRAY ELISE Attending Clinician Unavailable Desi Sotelo LVN Attending Clinician Issa ECHEVERRIA, Zohaib Mendoza Attending Clinician [phone] Ryne Yoder MD Attending Clinician Meghana Felix MD Attending Clinician RYNE YODER Attending Clinician Unavailable GOYO HANKINS Attending Clinician Unavailable DANYEL WHITESIDE Attending Clinician Unavailable Vijay Jenkins Attending Clinician Fredis ECHEVERRIA, Popeye In Attending Clinician Fredrick ECHEVERRIA, Aida Barreto Attending Clinician [phone] Yariel ECHEVERRIA, Clifton Negor Attending Clinician [phone] Kristin Shah MD Attending Clinician [phone] 1 KRISTIN SHAH Attending Clinician Unavailable Les Al MD Attending Clinician Nena Waller MD Attending Clinician Leonid Harris MD Attending Clinician CLIFTON DE LUNA Attending Clinician Unavailable DAYRON FOSTER Attending Clinician Unavailable Dayron Foster MD Attending Clinician [phone] ZAIN SALAS Attending Clinician Unavailable AMANDA [...] abscess 5-21 Iqra kes 00:00: Medical 00 [place] Abdominal Abdominal Disease Recurre [facility] infection infection nce 5-16 Luke s 00:00: Medical 00 [place] Pelvic Pelvic Disease Active [facility] abscess in abscess in 5-15 Iqra kes female female 00:00: Medical 00 [place] Acute Acute Disease Active 2018-[address] [facility] cholecysti cholecysti 2-03 Iqra kes tis tis 00:00: Medical 00 [place] Calculus Calculus Disease Active 2018-03 [facility] [...] Comments Source Gender identity [facility] Sexual orientation Univer sity [facility] History SDOH [facility] Alcohol Std Drinks Medica l Center History SDOH [facility] Alcohol Comment Medical C enter History SDOH [facility] Transport Non-Med Medical Center History of Social 2022-11-26 2022-11-26 Univers ity of function 00:00:00 00:00:00 [facility] Cigarettes smoked 2022-11-24 2022-11-24 Univers ity of current (pack per 00:00:00 00:00:00 [facility] ) - Reported Branch Cigarette 2022-11-24 2022-11-24 University of pack-years 00:00:00 00:00:00 [facility] Tobacco use and 2022-11-24 2022-11-24 Smokeless Universit y of exposure 00:00:00 00:00:00 tobacco non-user [facility] dical Branch Alcohol intake 2022-11-24 2022-11-24 Ex-drinker University 00:00:00 00:00:00 (finding) [facility] History of tobacco 2022-11-03 Passive smoker Un iversity of use 00:00:00 [facility] Branch History [facility] 2022-08-06 2022-08-[address] [facility] Transport Med 00:00:00 00:00:[address] [facility] 2022-08-06 2022-08-[address] [facility] Housing Unable to 00:00:00 00:00:00 Medical Center Pay History [facility] 2022-08-06 2022-08-[address] [facility] Housing Places 00:00:00 00:00:00 Medical Ce nter Lived History [facility] 2022-08-06 2022-08-[address] [facility] Housing Homeless 00:00:00 00:00:00 Medical Center Last Year History [facility] 2019-02-15 2019-02-[address] [facility] Alcohol Binge 00:00:00 00:00:[address] History [facility] 2019-02-15 2019-02-[address] [facility] Alcohol Frequency 00:00:00 00:00:00 Medical Center Sex Ass[birth year] At [birth year] Universit y of 00:00:00 00:00:00 [facility] Smoking Status Start Date Stop Date Source Ex-smoker 2022-11-24 00:00:00 2022-11-24 [place] 00:00:00 [facility] Branch Occasional tobacco 2022-07-30 00:00:00 [facility] smoker Center Medications Ordered Filled Start Stop Current Ordering Indication Dosage Frequency Signature Comments Components Source Medication Medication Date Date Medication? Clinician (SIG) Name Name [facility] Yes 20meq 20 mEq, Univers (KLOR-CON 9-14 Oral, ity of M20) tablet 14:00: DAILY, [facility] 20 mEq 00 First dose Medical on [place] Branch 11/29/22 at 0900, [facility] Routine QUEtiapine Yes 25mg Take 1 Unive rs 25 mg 9-13 tablet by ity of tablet 21:49: mouth in [place] [address] the Medical morning Branch and 1 tablet in the evening. furosemide Yes 20mg Take 1 Unive rs (LASIX) 20 9-13 tablet by ity of mg tablet 21:49: mouth in [facility] 46 the Medical morning. Branch QUEtiapine Yes 25mg Take 1 Unive rs 25 mg 9-13 tablet by ity of tablet 21:49: mouth in [place] 46 the Medical morning Branch and 1 tablet in the evening. furosemide 2022-0 Yes 20mg Take 1 Unive rs (LASIX) 20 11-28 tablet by ity of mg tablet 21:49: mouth in [facility] 46 the Medical morning. Branch albuterol [...] ity of tablet 10:17: 00:00 mouth at [place] 14 :00 bedtime. Medical Branch amLODIPine 2022-2022- No 10mg Take 1 Univ ers 10 mg 11-28 tablet by ity of tablet 10:12: 00:00 mouth in [place] 07 :00 the Medical morning. Branch NIFEdipine 2022-0 2022- No 60mg Take 1 Univ ers ER 60 mg 11-28 tablet by ity o f tablet 10:12: 00:00 mouth in [place] 04 :00 the Medical morning. Branch metoprolol 2022-0 2022- No 50mg Take 1 Univ ers tartrate 11-28 tablet by ity o f (LOPRESSOR) 10:12: 00:00 mouth in [place] 50 mg 04 :00 the Medical tablet morning Branch and 1 tablet in the evening. amLODIPine 2022-0 Yes [id number] 2.5mg Take 1 Univers 2.5 mg 11-28 tablet by ity of tablet 00:00: mouth in [place] 00 the Medical morning. Branch metoprolol 2022-0 Yes [id number] 12.5mg Take 0.5 Univers tartrate 25 9-13 tablets by it y of mg tablet 00:00: [place] the Medical morning Branch and 0.5 tablets in the evening. atorvastati 0 Yes [id number] 40mg Take 1 Univers n 40 mg 9-13 tablet by ity of tablet 00:00: mouth at [place] 00 bedtime. Medical Branch amLODIPine 0 Yes [id number] 2.5mg Take 1 Univers 2.5 mg 9-13 tablet by ity of tablet 00:00: mouth in [place] 00 the Medical morning. Branch metoprolol 0 Yes [id number] 12.5mg Take 0.5 Univers tartrate 25 9-13 tablets by it y of mg tablet 00:00: [place] 00 the Medical morning Branch and 0.5 tablets in the evening. atorvastati 0 Yes [id number] 40mg Take 1 Univers n 40 mg 9-13 tablet by ity of tablet 00:00: mouth at [place] 00 bedtime. Medical Branch HYDROcodone 0 Yes 1{tbl} 1 tablet, Univers -acetaminop 11-27 Oral, ity of hen (NORCO 21:16: Q6HPRN, [place] 5) 5-325 mg 22 Starting Medi wale tablet 1 on [facility] tablet 11/27/22 at 1616, Until Discontinu ed, Routine, Pain (scale 4-6) acetaminoph 0 Yes 650mg 650 mg, Un yoana en 11-27 Oral, ity of (TYLENOL) 21:12: Q6HPRN, [place] tablet 650 39 Starting Medic al mg on e Branch 11/27/22 at 1612, Until Discontinu ed, Routine, Pain (scale 1-3) nitroglycer 2022- No [id number] .8mg 0.8 mg, Univers in 11-27 Sublingual ity of (NITROSTAT) 20:15: 19:15 , ONCE, 1 [place] sublingual 00 :00 dose, On Medic al tablet 0.8 [facility] Branch mg 11/27/22 at 1515, KASSIDY iopamidol 0 2022- No [id number] 80mL 80 mL, U nivers (ISOVUE 11-27 Intravenou ity o f 370-500 mL) 20:15: 19:25 s, ONCE, 1 [place] injection 00 :00 dose, On Medica l 80 mL [facility] Branch 11/27/22 at 1515, Routine acetaminoph 2022- No 1{tbl} 1 tablet, Univers en-codeine 11-27 Oral, ity of (TYLENOL 11:15: 10:29 ONCE, 1 [place] #3) 300-30 00 :00 dose, On Medic al mg tablet 1 [facility] tablet 11/27/22 at 0615, Routine acetaminoph 2022-2022- No 1{tbl} 1 tablet, Univers en-codeine 11-26 Oral, ity of (TYLENOL 18:45: 18:50 ONCE, 1 [place] #3) 300-30 00 :00 dose, On Medic al mg tablet 1 [facility] tablet 11/26/22 at 1345, Routine metoprolol Yes 12.5mg 12.5 mg, U nivers tartrate 11-26 Oral, BID, ity o f (LOPRESSOR) 13:00: First dose [place] tablet 12.5 00 on Mon Medica l mg 11/26/22 at Branch 0800, Until Discontinu ed, Routine perflutren 2022- No [id number] 3mL 3 mL, IV Univers protein-A 11-25 Push, ity of microsphr 15:00: 15:00 ONCE, 1 [place] (OPTISON) 00 :00 dose, On Medica l injection 3 [place] Branch mL 11/25/22 at 1000, Routine pantoprazol Yes 40mg 40 mg, Univ ers e 11-25 Oral, ity of (PROTONIX) 14:00: DAILY, [place] EC tablet 00 First dose Medi wale 40 mg on [place] Branch 11/25/22 at 0900, Until Discontinu ed, Routine clopidogreL 2022- No 75mg 75 mg, Uni vers (PLAVIX) 75 11-25 Oral, ity of mg tablet 14:00: 14:47 DAILY, [place] 75 mg 00 :08 First dose Medical on [place] Branch 11/25/22 at 0900, Until Discontinu ed, Routine magnesium 2023-0 2023- No 4g 4 g, IV Univ ers sulfate in 11-25 Piggyback, it y of water 4 04:15: 07:19 at 25 [place] gram/50 mL 00 :00 mL/hr Medical (8 %) IV Administer Branc h Piggyback 4 over 120 g Minutes, ONCE, 1 dose, On [facility] 11/24/22 at 2315, Routine atorvastati 2022-0 Yes 40mg 40 mg, Univ ers n (LIPITOR) 11-25 Oral, QHS, it y of tablet 40 02:00: First dose [place] mg 00 on [facility] Medical 11/24/22 at Branch 2100, Until Discontinu ed, Routine lactated 3-0 2023- No 500mL at 999 Unive rs ringers IV 11-24 mL/hr, 500 it y of infusion 23:00: 12:43 mL, [place] 500 mL 00 :00 Intravenou Medical s, ONCE, 1 Branch dose, On [facility] 11/24/22 at 1800, Routine lactated 3-0 2023- [...] Rang e, Dosing and Testing: &nbs p;FOR [facility], [facility], AND [facility] ONLY &nbs p; - aPTT < [...] by mouth Center nightly. metroNIDAZO No 500mg [id number] Take [address] [facility] [facility] (FLAGYL) 08-03 [id number] tablet Lukes 500 MG 00:00: 00:00 3D [...] mouth Medica l tablet 09 :00 daily. [place] divalproex 2018-03 Yes epilepsy 125mg QD Take [address] (DEPAKOTE) 2-04 mg by Lukes 125 MG EC 10:36: mouth Medical tablet 04 daily. [place] divalproex 2018-03 Yes epilepsy 125mg QD Take [address] (DEPAKOTE) 2-04 mg by Lukes 125 MG EC 10:36: mouth Medical tablet 04 daily. [place] divalproex 2018-03 Yes epilepsy 125mg QD Take [address] (DEPAKOTE) 2-04 mg by Lukes 125 MG EC 10:36: mouth Medical tablet 04 daily. [place] famotidine 2018-03 Yes 1{tbl} Take 1 [facility] [...] Source Respiratory rate 2022-11-29 01:59:00 18 /min [facility] Oxygen saturation in 2022-11-29 01:59:00 93 /min [facility] Arterial blood by [facility] Pulse oximetry Branch Systolic blood 2022-11-29 01:23:00 126 mm[Hg] [facility] [place] Diastolic blood 2022-11-29 01:23:00 75 mm[Hg] [facility] Heart rate 2022-11-29 01:23:00 72 /min [facility] Body temperature 2022-11-29 01:23:00 36.94 Nahomi [facility] Body weight 2022-11-28 05:16:00 70.421 kg [facility] BMI 2022-11-28 05:16:00 28.40 kg/m2 [facility] Body height 2022-11-24 16:52:00 157.5 cm [facility] WEIGHT 2022-11-12 07:05:00 74.6 kg WEIGHT [...] cm Heart rate 2022-08-11 12:33:33 76 /min [facility] Respiratory rate 2022-08-11 12:33:33 18 /min [facility] Oxygen saturation in 2022-08-11 12:33:33 97 /min [facility] Arterial blood by Medical Ce nter Pulse oximetry Body temperature 2022-08-11 12:33:11 36.56 Nahomi [facility] Systolic blood 2022-08-11 12:32:45 129 mm[Hg] [facility] Diastolic blood 2022-08-11 12:32:45 80 mm[Hg] [facility] Body height 2022-08-05 19:35:00 157.5 cm [facility] Body weight 2022-08-05 19:35:00 58.968 kg [facility] BMI 2022-08-05 19:35:00 23.78 kg/m2 [facility] Procedures Procedure Date / Time Performing Clinician Source Performed MAGNESIUM 2022-11-28 09:22:00 Casi Maddox [facility] BASIC METABOLIC PANEL 2022-11-28 09:22:00 Casi Maddox [facility] (NA, K, CL, CO2, Medical Branch GLUCOSE, BUN, CREATININE, CA) CBC WITH DIFF 2022-11-28 09:22:00 Casi Maddox [facility] CT ANGIOGRAPHY 2022-11-27 19:24:21 Tori Hanna [facility] CORONARIES WITH CARDIAC [facility] Branch CALCIUM SCORE CT HEAD WO CONTRAST 2022-11-27 17:24:05 Milagros Choe [facility] CBC WITHOUT DIFF 2022-11-27 09:15:00 Joel Willis [facility] MAGNESIUM 2022-11-26 09:21[facility] 2022-11-26 09:21:00 Joel Willis [facility] ([id number]) (ALB,T.PRO,BILI Medical Branch T,BU/BC,ALT,AST,ALK PHOS) BASIC METABOLIC PANEL 2022-11-26 09:21:00 Paul [facility] (NA, K, CL, CO2, Medical Branch GLUCOSE, BUN, CREATININE, CA) CBC WITH DIFF 2022-11-26 09:21:00 Paul, [facility] ACTIVATED PARTIAL 2022-11-25 22:48:00 Lazaro [facility] EKG-12 LEAD 2022-11-25 17:52[facility] 2022-11-25 17:51:00 Philip Chris [facility] HB ECG ROUTINE & RHYTHM 2022-11-25 17:39:36 Joel Willis [facility] STRIP [facility] ACTIVATED PARTIAL 2022-11-25 15:42:00 Joel Willis [facility] TRANSTHORACIC ECHO (TTE) 2022-11-25 14:57:34 Joel Willis [facility] COMPLETE W/ CONTRAST Medical [facility] MAGNESIUM 2022-11-25 09:20:00 Lazaro [facility] BASIC METABOLIC PANEL 2022-11-25 09:20:00 Joel Willis [facility] (NA, K, CL, CO2, Medical Branch GLUCOSE, BUN, CREATININE, CA) URINE DRUG (IMMUNOASSAY) 2022-11-25 07:32:00 Joel Willis [facility] - COMPREHENSIVE DRUG Medical [facility] SCREEN GC & CHLAMYDIA AMPLIFIED 2022-11-25 07:32:00 Joel Willis [facility] ASSAY [facility] URINE DRUG (LCMSMS) - 2022-11-25 07:32:00 Joel Willis [facility] SYNTHETIC OPIATES PANEL Medical Branch CBC WITHOUT DIFF 2022-11-25 07:31:00 Joel Willis [facility] ACTIVATED PARTIAL 2022-11-25 07:31:00 Lazaro [facility] URINALYSIS 2022-11-25 07:31:00 Lazaro [facility] MAGNESIUM 2022-11-25 01:31:00 [facility] BASIC METABOLIC PANEL 2022-11-25 01:31:00 [facility] (NA, K, CL, CO2, Medical Branch GLUCOSE, BUN, CREATININE, CA) ACTIVATED PARTIAL 2022-11-25 01:31:00 Lazaro [facility] TROPONIN I 2022-11-24 23:01:00 Lazaro [facility] BLOOD CULTURE SCREEN 2022-11-24 22:57:00 Lazaro [facility] XR CHEST 1 VW 2022-11-24 21:30:59 Lazaro [facility] US ABDOMEN LIMITED 2022-11-24 21:30:31 Joel Willis [facility] XR CHEST 1 VW 2022-11-24 20:37:00 Lazaro [facility] CT HEAD WO CONTRAST 2022-11-24 18:42:54 Joel Willis [facility] ACTIVATED PARTIAL 2022-11-24 17:43:00 Lazaro [facility] CBC WITH DIFF 2022-11-24 16:39:00 Lazaro [facility] MRSA / MSSA SCREEN BY 2022-11-24 16:39:00 Lazaro [facility], [facility] TROPONIN I 2022-11-24 16:34:00 Lazaro [facility] THYROID STIMULATING 2022-11-24 16:34:00 Lazaro [facility] HORMONE [facility] Branch HEPATIC FUNCTION PANEL 2022-11-24 16:34:00 Joel Willis [facility] ([id number]) (ALB,T.PRO,BILI Medical Branch T,BU/BC,ALT,AST,ALK PHOS) BASIC METABOLIC PANEL 2022-11-24 16:34:00 Lazaro [facility] (NA, K, CL, CO2, Medical Branch GLUCOSE, BUN, CREATININE, CA) LIPID PANEL 2022-11-24 16:34:00 Lazaro [facility] ([id number])(TOTAL Medical Branch CHOLESTEROL, TRIGLYCERIDES, HDL) GLYCOSYLATED HEMOGLOBIN 2022-11-24 16:34:00 Joel Willis [facility] (A1C) Medical [place] PROTHROMBIN TIME / INR 2022-11-24 16:34:00 Joel Willis [facility] HEPATITIS B SURFACE 2022-11-24 16:34:00 Lazaro [facility] ANTIBODY Medical Branch HEPATITIS B SURFACE 2022-11-24 16:34:00 Lazaro [facility] ANTIGEN [facility] HCV ANTIBODY 2022-11-24 16:34:00 [facility] VIRUS 2022-11-24 16:34:00 [facility] ANTIBODY IGM [facility] N-TERMINAL PRO-BNP 2022-11-24 16:34:00 Lazaro [facility] HIV 1/2 AG-AB WITH 2022-11-24 16:34:00 Lazaro [facility] REFLEX [facility] EKG-12 LEAD 2022-11-24 16:22:20 [facility] BASIC METABOLIC PANEL 2022-08-11 04:41:00 [facility] MAGNESIUM 2022-08-11 04:41:00 [facility] CALCIUM, IONIZED 2022-08-11 04:41:00 [facility] PHOSPHORUS 2022-08-11 04:41:00 [facility] CBC W/PLT COUNT & AUTO 2022-08-11 04:41:00 [facility] DIFFERENTIAL [place] CBC W/PLT COUNT & AUTO 2022-08-11 04:41:00 [facility] BASIC METABOLIC PANEL 2022-08-10 16:09:00 [facility] SODIUM, RANDOM URINE 2022-08-10 09:33:00 [facility] UREA NITROGEN, RANDOM 2022-08-10 09:33:00 [facility] URINE [facility] CREATININE, RANDOM URINE 2022-08-10 09:33:00 [facility] OSMOLALITY, URINE 2022-08-10 09:33:00 [facility] TSH/FREE T4 IF INDICATED 2022-08-10 09:33:00 [facility] CORTISOL 2022-08-10 09:33:00 [facility] OSMOLALITY, SERUM 2022-08-10 09:33:00 [facility] T4, FREE 2022-08-10 09:33:00 [facility] CBC (HEMOGRAM ONLY) 2022-08-10 05:06:00 [facility] BASIC METABOLIC PANEL 2022-08-10 05:06:00 [facility] MAGNESIUM 2022-08-10 05:06:00 [facility] CBC (HEMOGRAM ONLY) 2022-08-09 03:38:00 [facility] BASIC METABOLIC PANEL 2022-08-09 03:38:00 [facility] MAGNESIUM 2022-08-09 03:38:00 [facility] CBC (HEMOGRAM ONLY) 2022-08-08 04:25:00 [facility] BASIC METABOLIC PANEL 2022-08-08 04:25:00 [facility] B-TYPE NATRIURETIC 2022-08-08 04:25:00 [facility] FACTOR (BNP) [facility] STD PANEL - CT/GC RNA 2022-08-07 16:52:00 Higinio [facility] FUNGUS CULTURE + SMEAR 2022-08-07 10:22:00 Aida Alcala I [facility] ANAEROBIC CULTURE 2022-08-07 10:22:00 [facility] WOUND CULTURE + GRAM 2022-08-07 10:22:00 [facility] STAIN [facility] RADIOLOGIC GUIDANCE & 2022-08-07 10:20:00 [facility]SPEC [facility] BASIC METABOLIC PANEL 2022-08-07 03:42:00 [facility] CBC (HEMOGRAM ONLY) 2022-08-07 03:41:[facility] ABDOMEN/PELVIS WITH 2022-08-06 00:22:00 Aida Alcala I [facility] IV CONTRAST [facility] SCREEN, URINE 2022-08-05 21:06:00 Ronal Duran [facility] CBC W/PLT COUNT & AUTO 2022-08-05 20:40:00 Aida Alcala [facility] DIFFERENTIAL [facility] BASIC METABOLIC PANEL 2022-08-05 20:40:00 [facility]OT[facility]/INR 2022-08-05 20:40:00 [facility] TYPE AND SCREEN, 2022-08-05 20:40:00 Aida Alcala [facility] AUTOMATED [facility] CBC W/PLT COUNT & AUTO 2022-08-05 20:40:00 Aida Alcala I [facility] DIFFERENTIAL [facility] (CELLAVISION MANUAL 2022-08-05 20:40:00 [facility]FF) [facility] TRANSTHORACIC ECHO FOR 2022-08-03 13:59:39 Unknown, Hl7 [facility] BASIC METABOLIC PANEL 2022-08-03 04:31:00 [facility] CBC (HEMOGRAM ONLY) 2022-08-03 04:31:00 [facility] CBC W/PLT COUNT & AUTO 2022-08-02 13:09:00 [facility] BASIC METABOLIC PANEL 2022-08-02 13:09:00 [facility] CBC W/PLT COUNT & AUTO 2022-08-02 13:09:00 [facility] (CELLAVISION MANUAL 2022-08-02 13:09:00 [facility]) [place] NM MYOCARDIAL PERFUSION 2022-08-01 13:31:00 [facility] SPECT, PHARM Azzam [place] TREADMILL 2022-08-01 11:39:56 Unknown, Hl7 [facility](NON-NUCLEAR Center TREADMILL) ECG 12-LEAD 2022-08-01 10:14:26 Unknown, 7 [facility] ECG 12-LEAD 2022-08-01 10:14:26 Unknown, 7 [facility] ECG 12-LEAD 2022-08-01 10:13:38 Unknown, 7 [facility] ECG 12-LEAD 2022-08-01 10:13:38 Unknown, 7 [facility] CBC W/PLT COUNT & AUTO 2022-08-01 04:47:00 Leonid Harris [facility] BASIC METABOLIC PANEL 2022-08-01 04:47:00 Leonid Harris [facility] MAGNESIUM 2022-08-01 04:47:00 Leonid Harris [facility] PHOSPHORUS 2022-08-01 04:47:00 Leonid Harris [facility] HEMOGLOBIN A1C 2022-08-01 04:47:00 [facility] PT/APTT 2022-08-01 04:47:00 [facility] HCG, QUANTITATIVE, 2022-08-01 04:47:00 [facility] Center TYPE AND SCREEN, 2022-08-01 04:47:00 Leonid Harris [facility] AUTOMATED Center CBC W/PLT COUNT & AUTO 2022-08-01 04:47:00 Leonid Harrisssa [facility] DIFFERENTIAL Center (CELLAVISION MANUAL 2022-08-01 04:47:00 [facility] Center 2D ECHO W/ DOPPLER 2022-07-31 15:20:04 [facility] (CW/PW/COLOR) [facility] ECG 12-LEAD 2022-07-31 15:01:[address] [facility] ECG 12-LEAD 2022-07-31 15:01:36 Unknown, Hl7 [facility] ENDOVAGINAL EV 2022-07-31 12:52:00 [facility] US PELVIS 2022-07-31 12:52:00 [facility] US DOPPLER 2022-07-31 12:52:00 [facility] BASIC METABOLIC PANEL 2022-07-31 03:09:00 [facility] MAGNESIUM 2022-07-31 03:09:00 [facility] PHOSPHORUS 2022-07-31 03:09:[address] [facility] [address] [address] [facility] CBC W/PLT COUNT & AUTO 2022-07-31 03:09:00 [facility] LIPID PANEL 2022-07-31 03:09:[address] [facility] CBC W/PLT COUNT & AUTO 2022-07-31 03:09:00 Dewayne Reilly [facility] Medical DIFFERENTIAL An Center XR CHEST 1 VIEW PORTABLE 2022-07-30 16:42:00 Dewayne Reilly P is [facility] Medical / BEDSIDE An Center CBC W/PLT COUNT & AUTO 2022-07-30 15:38:00 Dewayne Reilly Pis [facility] Medical DIFFERENTIAL An Center BASIC METABOLIC PANEL 2022-07-30 15:38:[address] [facility] Medical An Center PROTHROMBIN TIME/INR 2022-07-30 15:38:00 Dewayne Reilly Pis [facility] Medical An Center MAGNESIUM 2022-07-30 15:38:00 [facility] [facility] W/PLT COUNT & AUTO 2022-07-30 15:38:00 LianeиринаDayron [facility] Medical DIFFERENTIAL [facility] Plan of Care Planned Activity Planned Date Details Comments Source Future Scheduled 2025-07-31 Lipid panel (procedure) [facility] Test 00:00:00 [code = 78280168] Medical Ce nter Future Scheduled 2022-11-16 Influenza [...] [facility] 00:00:00 [code = 55719682] Medical Ce nter Future Scheduled 2021-03-18 DEPRESSION [...] cervix Medical C enter (procedure) [code = 738361819] Future Scheduled 1997 Screening for malignant [facility] Test 00:00:00 neoplasm of cervix Medical C enter (procedure) [code = 684739795] Future Scheduled 1995 DTAP/TDAP/TD VACCINES (1 [facility] [...] screening Medical Cent er (procedure) [code = 229294201] Future Scheduled [address] [...] colon Medical Ce nter (procedure) [code = 577684910] Future Scheduled 1976 Screening for malignant [facility] Test 00:00:00 neoplasm of colon Medical Ce nter (procedure) [code = 045965602] Future Scheduled 1976 Screening for malignant [facility] Test 00:00:00 neoplasm of colon Medical Ce nter (procedure) [code = 666893599] Future Scheduled 1976 Screening for malignant [facility] Test 00:00:00 neoplasm of colon Medical Ce nter (procedure) [code = 970096985] Future Scheduled 1976 Sigmoidoscopy [code = [facility]oscopy] Medical Cente r Future Scheduled 1976 CT Colonography (combo) [facility] Test 00:00:00 [code = CT Colonography [facility] (combo)] Future Scheduled 1976 Screening for malignant [facility] Test 00:00:00 neoplasm of colon Medical Ce nter (procedure) [code = 882187022] Future Scheduled 1976 Screening for malignant [facility] Test 00:00:00 neoplasm of colon Medical Ce nter (procedure) [code = 600535896] Future Scheduled 1976 Screening for malignant [facility] Test 00:00:00 neoplasm of colon Medical Ce nter (procedure) [code = 228561269] Future Scheduled 1976 Screening for malignant [facility] Test 00:00:00 neoplasm of colon Medical Ce nter (procedure) [code = 365945867] Future Scheduled 1976 Sigmoidoscopy [facility]code = [facility]oscopy] Medical Cente r Encounters Start End Encounter Admission Attending Care Care Encounter Source Date/Time Date/Time Type Type Clinicians Facility Department ID 2022-11-07 Inpatient ER ZAHRA PASCUAL [facility] [id number] [facility] 19:39:43 2022-11-06 Inpatient ER SUSIE TAI [facility] [id number] [facility] 11:21:11 2022-11-06 Inpatient ER SUSIE TAI [facility] [id number] [facility] 10:39:32 2022-11-05 Inpatient ER SUSIE TAI [facility] [id number] [facility] 13:31:19 2022-11-03 Inpatient ER SUSIE TAI [facility] [id number] [facility] 10:45:25 2022-11-01 Inpatient ER SLEH [facility] [id number] [facility] 09:28:17 2022-11-01 Inpatient ER SLEH [facility] [id number] [facility] 09:11:47 2022-10-31 Inpatient ER BERSHAD, [facility]H [facility] [id number] [facility] 00:51:03 KATHY 2022-10-31 Inpatient ER BERSHAD, SLEH [facility] [id number] [facility] 00:50:54 KATHY 2022-10-30 Inpatient ER SLEH SLEH [id number] SLEH 15:54:13 2022-10-30 Inpatient ER BERSHAD, SLEH [facility] [id number] SLEH 09:14:25 KATHY 2022-10-30 Inpatient ER BERSHAD, SLEH SLE[facility] [id number] SLEH 05:26:11 KATHY 2022-10-29 Inpatient ER BERSHAD, SLEH SLEH [id number] SLEH 17:09:25 KATHY 2022-10-29 Inpatient ER GOSIA, SLE SLEH [id number] SLEH 03:50:03 MURRAY 2022-12-27 2022-12-27 Outpatient SFA SFA [id number] Martin 10:33:43 10:33:43 1012 F Tello 2022-11-29 2022-11-29 Transition MONSE Sotelo [id number] Univers 00:00:00 00:00:00 of Care Desi REDDY 350.1.13.10 ity of KARINA [id number] David vitale [id number] [place] [id number] [address] 2022-11-24 2022-11-28 [id number] [facility] 11:15:00 21:45:00 Encounter Ryne Yoder 350.1.13.1 0 [facility] 4.2.7.2.686 [place] [id number] [place] [address] [address] 2022-11-24 2022-11-28 Inpatient U BEBA [facility] [id number] Univers 11:15:00 21:45:00 [facility] 2022-11-28 Inpatient Johnny [facility] [id number] Univers 11:15:00 21:45:00 [facility]22-10-29 2022-11-13 [id number] [facility] 02:56:00 21:30:00 GOYO 2022-11-06 2022-11-06 Inpatient ER SLEH SLEH [id number] SLEH 08:32:27 00:00:00 2022-11-05 2022-11-05 Outpatient SLEH SLEH [id number] [facility]H 00:00:00 00:00:00 2022-11-05 2022-11-05 Outpatient SLEH SLEH [id number] [facility]H 00:00:00 00:00:00 2022-11-02 2022-11-02 Inpatient ER SUSIE TAI [facility] SLEH [id number] SLEH 10:58:08 00:00:00 2022-10-29 2022-10-29 Inpatient ER PITTARD, SLEH SLEH [id number] SLEH 10:12:32 23:59:00 MURRAY 2022-10-29 2022-10-29 Inpatient ER PITTARD, SLEH SLEH [id number] SLEH 10:12:49 00:00:00 MURRAY 2022-10-29 2022-10-29 Inpatient ER PITTARD, SLEH SLEH [id number] SLEH 10:12:41 00:00:00 MURRAY 2022-08-12 2022-08-[address] [facility] [id number] [facility] 00[facility]00 [facility] 2022-08-05 2022-08-11 Hospital ER Popeye Mcneal In [facility] [id number] [facility] St 18:09:00 14:47:00 [facility] [place] 2022-08-05 2022-08-11 Inpatient ER [facility] Gynecology [id number] SLE 18:09:00 14:47:00 [facility] 2022-08-05 2022-08-05 Travel [facility] [id number] [facility] 00:[facility]00 [facility] 2022-07-31 2022-08-03 [facility] UR Les Al [facility] [id number] [facility] St 04:37:00 20:00:00 Encounter Nena Waller [facility] Matias Leonid Orr [place] 2022-07-31 2022-08-03 Inpatient UR [facility] General Med [id number] [facility] 04:37:00 20:00:00 [facility] 2022-07-30 2022-07-31 Inpatient ER [facility], [facility] Gynecology [id number] [facility] 14:07:00 04:04:00 [place] 2022-07-30 2022-07-31 [facility] ER [facility], [facility] [id number] [facility] St 14:07:00 04:04:00 Encounter [facility] 2022-07-31 2022-07-[address] [facility] [id number] 00:00:00 00:00:00 Only [facility] 2022-07-30 2022-07-30 Travel [facility] [id number] [facility] 00:[facility]00 00:00:00 [facility] Results Test Description Test Time Test Comments Results Result Comments Source HEPATIC FUNCTION PANEL (40416) (ALB,T.PRO,BILI 2022-11-26 13 :08:17 T,BU/BC,ALT,AST,ALK PHOS) Test Item Value Reference Range Interpretation Comme nts TOTAL BILI (test code = 7009721242) 0.9 mg/dL 0.1-1.1 BILI UNCON (test code = 3941592603) 0.6 mg/dL 0.1-1.1 BILI CONJ (test code = 8434080303) 0.0 mg/dL 0.0-0.3 T PROTEIN (test code = 6787278342) 6.5 g/dL 6.3-8.2 ALBUMIN (test code = 6263361329) 4.0 g/dL 3.5-5.0 ALK PHOS (test code = 8355634144) 527 U/L 34-122 H ALTv (test code = 1742-6) 116 U/L 5-35 H AST(SGOT) (test code = 8278747551) 76 U/L 13-40 H Lab Interpretation (test code = 03353-8) Abnormal [facility] METABOLIC PANEL (NA, K, CL, CO2, GLUCOSE, BUN, CREATININE, CA)2022-11-26 10:08:01 Test Item Value Reference Range Interpretation Comments NA (test code = 136 mmol/L 135-145 9604833797) K (test code = 4.1 mmol/L 3.5-5.0 5493001005) CL (test code = 100 mmol/L 98-108 2130674117) CO2 TOTAL (test code 28 mmol/L 23-31 = 8569064229) AGAP (test code = 8 2-16 9824434608) BUN (test code = 17 mg/dL 7-23 4107830025) GLUCOSE (test code = 87 mg/dL 70-110 6651377489) CREATININE (test code 1.00 mg/dL 0.50-1.04 = 7179239388) CALCIUM (test code = 9.3 mg/dL 8.6-10.6 5309570076) eGFR (test code = 59.7 mL/min/1.73m2 9811219236) SUE (test code = SUE) Association of [...] or urine or abnormalities in imaging tests). [facility] 10:08:01 Test Item Value Reference Range Interpretation Comments MAGNESIUM (test code = 9944027740) 1.8 mg/dL 1.7-2.4 Lab Interpretation (test code = Normal 78021-2) [facility] WITH [id number] 09:36:22 Test Item Value Reference Range Interpretation Comments WBC (test code = 4.18 See_Comment L [Automated 4090-2) message] The sy stem which generated this result transmitted reference range : 4.30 - 11.10 10*3/?L. The reference range was not used to interpret this result as normal/abnormal . RBC (test code = 3.39 See_Comment L [Automated 019-8) message] The sy stem which generated this [...] RDW-SD (test code = 42.7 fL 39.0-49.9 94932-3) RDW-CV (test code = 12.5 % 12.0-15.5 788-0) PLT (test code = 151 See_Comment L [Automated 777-3) message] The sy stem which generated this result transmitted reference range : 166 - 358 10*3/ ?L. The reference r eliazbeth was not used to interpret this result as normal/abnormal . MPV (test code = 9.4 fL 9.5-12.9 L 35657-7) NRBC/100 WBC (test 0.0 See_Comment [Automat ed code = 0414252576) message] The system which generated this result transmitted reference range : 0.0 - 10.0 /100 WBCs. The refer ence range was not u sed to interpret th is result as normal/abnormal . NRBC x10^3 (test code See_Comment [Auto mated = 4650018606) message] The s ystem which generated this result transmitted reference range : 10*3/?L. The reference range was not used to interpret this result as normal/abnormal . GRAN MAT (NEUT) % 68.0 % (test code = 770-8) IMM GRAN % (test code 0.00 % = 4404531228) LYMPH % (test code = 17.7 % 736-9) MONO % (test code = 9.1 % 5905-5) EOS % (test code = 4.5 % 713-8) BASO % (test code = 0.7 % 706-2) GRAN MAT x10^3(ANC) 2.84 10*3/uL 1.88-7.09 (test code = 3175178857) IMM GRAN x10^3 (test 0.00-0.06 code = 4646773863) LYMPH x10^3 (test code 0.74 10*3/uL 1.32-3.29 L = 731-0) MONO x10^3 (test code 0.38 10*3/uL 0.33-0.92 = 742-7) EOS x10^3 (test code = 0.19 10*3/uL 0.03-0.39 711-2) BASO x10^3 (test code 0.03 10*3/uL 0.01-0.07 = 704-7) Lab Interpretation Abnormal (test code = 27637-7) [facility] METABOLIC PANEL (NA, K, CL, CO2, GLUCOSE, BUN, CREATININE, CA)2022-11-25 09:47:18 Test Item Value Reference Range Interpretation Comments NA (test code = 135 mmol/L 135-145 0241796764) K (test code = 5.0 mmol/L 3.5-5.0 Slight 4654417164) hemolysis CL (test code = 100 mmol/L 98-108 0110270693) CO2 TOTAL (test code 28 mmol/L 23-31 = 1883167217) AGAP (test code = 7 2-16 5629574847) BUN (test code = 20 mg/dL 7-23 Slight 9755108966) hemolysis GLUCOSE (test code = 109 mg/dL 70-110 2704733553) CREATININE (test code 1.20 mg/dL 0.50-1.04 H = 3997352143) CALCIUM (test code = 9.2 mg/dL 8.6-10.6 8102988121) eGFR (test code = 48.4 mL/min/1.73m2 5432592414) SUE (test code = SUE) Association of [...] tests). Lab Interpretation Abnormal (test code = 52058-2) [facility] 09:42:55 Test Item Value Reference Range Interpretation Comments MAGNESIUM (test code = 1761424950) 3.1 mg/dL 1.7-2.4 H Lab Interpretation (test code = Abnormal 03026-7) [facility] A VIRUS ANTIBODY [id number] 23:52:42 Test Item Value Reference Range Interpretation Comments HAVM 0.05 Semi-Quantitative (test code = 72329-3) SUE (test code = HAVAb IgM Interpretative SUE) Information: Reactive greater than or equal to 1.2 Biotin has been reported to cause a negative bias, interpret results relative to patient's use of biotin. [facility] CenterTR[facility] [id number] 23:35:43 Test Item Value Reference Range Interpretation Comments TROPONIN I (test code = 0.911 ng/mL <=0.034 H 9571963865) SUE (test code = SUE) Reference (Normal) [...] biotin. Lab Interpretation Abnormal (test code = 64225-7) [facility]2 AG-AB WITH [id number] 21:57:58 Test Item Value Reference Range Interpretation Comments HIV 0.12 Negative Semi-quantitative (test code = 25054-0) SUE (test code = Non-reactive for HIV-1 SUE) antigen and HIV-1/HIV-2 antibodies. ?No laboratory evidence of HIV infection. ?Repeat in 2-4 weeks if acute HIV infection is suspected. [facility] CenterHCV [id number] 21:57:58 Test Item Value Reference Range Interpretation Comments HCV Ab (test code = 05282-7) Negative HCV Semi-Quantitative (test code = 0.01 06879-4) [facility] SURFACE [id number] 21:57:58 Test Item Value Reference Range Interpretation Comments HBsAB (test code = Negative 0340572949) HBsAb 0.00 mIU/mL Semi-Quantitative (test code = 1816173798) SUE (test code = Interpretation: SUE) ?Hepatitis B Surface Antibody ? Negative - Patient is considered to be not immune to infection with HBV. ? ? Positive - Anti-HBs detected at greater than or equal to 12 mIU/mL. ?Patient is considered to be immune to infection with HBV. ? [facility] SUR[facility] [id number] 21:40:35 Test Item Value Reference Range Interpretation Comments HBsAg Semi-Quantitative (test code = 0.14 Negative 5195-3) [facility] CenterGLYCOSYLATED HEMOGLOBIN (A1C)2022-11-24 18:18:35 Test Item Value Reference Range Interpretation Comments HGB A1C (test code = 4.6 % 4.0-5.7 4548-4) SUE (test code = SUE) Reference RangesNormal: <5.7%Prediabetes: 5.7 - 6.4%Diabetes: > 6.5% Lab Interpretation (test Normal code = 45682-2) [facility] CenterTHYROID STIMULATING [id number] 17:58:24 Test Item Value Reference Range Interpretation Comments TSH (test code = 2.03 See_Comment [Automated message] 2047354191) The system [employer] generated this result transmitted ref erence range: 0.45 - 4 .70 mIU/L. The refe rence range was not u sed to interpret this result as normal/abnor mal. Lab Interpretation (test Normal code = 74499-2) [facility] CenterTROP[facility]IN [id number] 17:39:48 Test Item Value Reference Range Interpretation Comments TROPONIN I (test code = 1.340 ng/mL <=0.034 H 9203063168) SUE (test code = SUE) Reference (Normal) [...] biotin. Lab Interpretation Abnormal (test code = 94194-4) [facility] CenterN-TERMINAL [id number] 17:39:48 Test Item Value Reference Range Interpretation Comments NT-proBNP (test code = 2520 pg/mL <=125 H 17228-8) SUE (test code = SUE) Positive: Heart Failure Likely Lab Interpretation (test Abnormal code = 47364-7) [facility] METABOLIC PANEL (NA, K, CL, CO2, GLUCOSE, BUN, CREATININE, CA)2022-11-24 17:30:04 Test Item Value Reference Range Interpretation Comments NA (test code = 135 mmol/L 135-145 5466336054) K (test code = 3.9 mmol/L 3.5-5.0 3316284117) CL (test code = 97 mmol/L 98-108 L 1573146244) CO2 TOTAL (test code = 27 mmol/L 23-31 9603404490) AGAP (test code = 11 2-16 2592822379) BUN (test code = 23 mg/dL 7-23 6729396827) GLUCOSE (test code = 163 mg/dL 70-110 H 8937666347) CREATININE (test code = 1.40 mg/dL 0.50-1.04 H 4587104789) CALCIUM (test code = 9.4 mg/dL 8.6-10.6 6368638252) eGFR (test code = 40.5 mL/min/1.73m2 1140666420) SUE (test code = SUE) Association of [...] tests). Lab Interpretation Abnormal (test code = 04252-9) [facility] CenterHEP[facility] FUNCTION PANEL (06900) (ALB,T.PRO,BILI T,BU/BC,ALT,AST,ALK PHOS)2022-11-24 17:30:04 Test Item Value Reference Range Interpretation Comments TOTAL BILI (test code = 2200848212) 1.0 mg/dL 0.1-1.1 BILI UNCON (test code = 2930505953) 0.6 mg/dL 0.1-1.1 BILI CONJ (test code = 9414918252) 0.0 mg/dL 0.0-0.3 T PROTEIN (test code = 7958435976) 6.8 g/dL 6.3-8.2 ALBUMIN (test code = 8987649990) 4.1 g/dL 3.5-5.0 ALK PHOS (test code = 8313701033) 746 U/L 34-122 H ALTv (test code = 1742-6) 183 U/L 5-35 H AST(SGOT) (test code = 2894802133) 196 U/L 13-40 H Lab Interpretation (test code = Abnormal 91107-5) [facility] CenterLIP[facility] PAN[facility] (03257)(TOTAL CHOLESTEROL, TRIGLYCERIDES, HDL)2022-11-24 17:30:04 Test Item Value Reference Range Interpretation Comments CHOL (test code = 7648493489) 113 mg/dL 120-200 L HDL (test code = 2638828403) 62 mg/dL >=50 HDLC RATIO (test code = 1624208774) 1.8 <=4.5 TRIG (test code = 7340668436) 71 mg/dL 30-170 LDL CHOL (test code = 63939-9) 37 mg/dL <=160 VLDL (test code = 8105192564) 14 mg/dL 5-60 Lab Interpretation (test code = Abnormal 39584-3) [facility] WITH [id number] 16:55:22 Test Item Value Reference Range Interpretation Comments WBC (test code = 6.05 See_Comment [Automated 9204-2) message] The sy stem which generated this result transmitted reference range : 4.30 - 11.10 10*3/?L. The reference range was not used to interpret this result as normal/abnormal . RBC (test code = 3.21 See_Comment L [Automated 052-8) message] The sy stem which generated this [...] RDW-SD (test code = 44.3 fL 39.0-49.9 11429-2) RDW-CV (test code = 12.9 % 12.0-15.5 788-0) PLT (test code = 203 See_Comment [Automated 777-3) message] The sy stem which generated this result transmitted reference range : 166 - 358 10*3/ ?L. The reference r elizabeth was not used to interpret this result as normal/abnormal . MPV (test code = 9.9 fL 9.5-12.9 69600-6) NRBC/100 WBC (test 0.0 See_Comment [Automat ed code = 4282673083) message] The system which generated this result transmitted reference range : 0.0 - 10.0 /100 WBCs. The refer ence range was not u sed to interpret th is result as normal/abnormal . NRBC x10^3 (test code See_Comment [Auto mated = 5645633015) message] The s ystem which generated this result transmitted reference range : 10*3/?L. The reference range was not used to interpret this result as normal/abnormal . GRAN MAT (NEUT) % 59.6 % (test code = 770-8) IMM GRAN % (test code 0.20 % = 5107874500) LYMPH % (test code = 28.3 % 736-9) MONO % (test code = 9.1 % 5905-5) EOS % (test code = 2.5 % 713-8) BASO % (test code = 0.3 % 706-2) GRAN MAT x10^3(ANC) 3.61 10*3/uL 1.88-7.09 (test code = 3705718710) IMM GRAN x10^3 (test 0.00-0.06 code = 8743404610) LYMPH x10^3 (test code 1.71 10*3/uL 1.32-3.29 = 731-0) MONO x10^3 (test code 0.55 10*3/uL 0.33-0.92 = 742-7) EOS x10^3 (test code = 0.15 10*3/uL 0.03-0.39 711-2) BASO x10^3 (test code 0.01-0.07 = 704-7) Lab Interpretation Abnormal (test code = 17586-3) [facility] Center[facility] [id number] 12:43:54 Test Item Value Reference Range Interpretation Comments POC-GLUCOSE METER 138 mg/dL 70-110 H : TESTED A T [facility] 6720 (BEAKER) (test code = AV[place], 1538) 1945[address]: Blog Writer/Techni smiley ID = [id number] for MANDA ESPARZA [id number] 06:54:19 Test Item Value Reference Range Interpretation Comments PHOSPHORUS (BEAKER) (test code = 4.2 mg/dL 2.3-4.7 604) Blog Writer ID - [id number] 06:54:18 Test Item Value Reference Range Interpretation Comments MAGNESIUM (BEAKER) (test code = 1.7 mg/dL 1.6-2.6 627) Blog Writer ID - ADMINCBC W/PLT COUNT & AUTO [id number] 06:00:54 Test Item Value Reference Range Interpretation [...] PERCENT (BEAKER) (test code = 2801) POCT-GLUCOSE [id number] 21:38:27 Test Item Value Reference Range Interpretation Comments POC-GLUCOSE METER 88 mg/dL 70-110 : TESTED A T [facility] 6720 (BEAKER) (test code = [facility], [facility]) 75752: Blog Writer/Techni smiley ID = [id number] for NADEGE MORALES POCT-GLUCOSE [id number] 18:19:26 Test Item Value Reference Range Interpretation Comments POC-GLUCOSE METER 93 mg/dL 70-110 : TESTED A T [facility] 6720 (BEAKER) (test code = [facility], 153) 70961: Blog Writer/Techni smiley ID = [id number] for NONA REESE, MANDA POCT-GLUCOSE [id number] 13:13:27 Test Item Value Reference Range Interpretation Comments POC-GLUCOSE METER 91 mg/dL 70-110 : TESTED A T [facility] 6720 (BEAKER) (test code = [facility], 153) 15587: Blog Writer/Techni smiley ID = [id number] for MART MARY ANN, MANDA BLOOD [id number] 12:00:51 Test Item Value Reference Range Interpretation Comments CULTURE (BEAKER) (test No growth in 5 days code = 1095) BLOOD [id number] 12:00:51 Test Item Value Reference Range Interpretation Comments CULTURE (BEAKER) (test No growth in 5 days code = 1095) The specimen volume collected for this blood culture was below the optimum (10 mL per bottle or 20 mL total). Use of lower volumes may adversely affect recovery and/or detection times of some organisms.POCT-GLUCOSE [id number] 06:46:01 Test Item Value Reference Range Interpretation Comments POC-GLUCOSE METER 102 mg/dL 70-110 : TESTED Oscar T [facility] 6720 (BEAKER) (test code = AVINASH [place], 1538) 97916: Blog Writer/Techni smiley ID = [id number] for Teresa Rose [id number] 05:48:23 Test Item Value Reference Range Interpretation Comments MAGNESIUM (BEAKER) (test code = 1.8 mg/dL 1.6-2.6 627) Blog Writer ID - [id number] 05:48:23 Test Item Value Reference Range Interpretation Comments PHOSPHORUS (BEAKER) (test code = 3.6 mg/dL 2.3-4.7 604) Blog Writer ID - MARCOBASIC METABOLIC [id number] 05:48:22 Test Item Value Reference Range Interpretation [...] not appl icable for dialysis patien ts Blog Writer ID - MARCOCBC W/PLT COUNT & AUTO [id number] 05:10:47 Test Item Value Reference Range Interpretation [...] PERCENT (BEAKER) (test code = 2801) POCT-GLUCOSE [id number] 23:44:35 Test Item Value Reference Range Interpretation Comments POC-GLUCOSE METER 93 mg/dL 70-110 : TESTED A T [facility] 6720 ([facility]) (test code = [facility], 153) 33420: Blog Writer/Techni smiley ID = [id number] for Teresa Camejo POCT-GLUCOSE [id number] 17:35:54 Test Item Value Reference Range Interpretation Comments POC-GLUCOSE METER 108 mg/dL 70-110 : TESTED A T [facility] 6720 ([facility]) (test code = [facility], 153) 79130: Blog Writer/Techni smiley ID = [id number] for Donna Rolle BLOOD [id number] 17:01:46 Test Item Value Reference Range Interpretation Comments CULTURE (BEAKER) (test No growth in 5 days code = 1095) The specimen volume collected for this blood culture was below the optimum (10 mL per bottle or 20 mL total). Use of lower volumes may adversely affect recovery and/or detection times of some organisms.POCT-GLUCOSE [id number] 13:41:35 Test Item Value Reference Range Interpretation Comments POC-GLUCOSE METER 99 mg/dL 70-110 : TESTED A T [facility] 6720 (BEAKER) (test code = [facility], 153) 19479: Blog Writer/Techni smiley ID = [id number] for Jean Marie posada, Donna BLOOD [id number] 13:01:43 Test Item Value Reference Range Interpretation Comments CULTURE (BEAKER) (test No growth in 5 days code = 1095) POCT-GLUCOSE [id number] 07:21:17 Test Item Value Reference Range Interpretation Comments POC-GLUCOSE METER 110 mg/dL 70-110 : TESTED A T [facility] 6720 (BEAKER) (test code = [place], 1538) 43042: Blog Writer/Techni smiley ID = [id number] for Teresa Rose BASIC METABOLIC [id number] 05:31:26 Test Item Value Reference Range Interpretation [...] not appl icable for dialysis patien ts Blog Writer ID - [id number] 05:31:26 Test Item Value Reference Range Interpretation Comments MAGNESIUM (BEAKER) (test code = 2.0 mg/dL 1.6-2.6 627) Blog Writer ID - [id number] 05:31:26 Test Item Value Reference Range Interpretation Comments PHOSPHORUS (BEAKER) (test code = 3.6 mg/dL 2.3-4.7 604) Blog Writer ID - MARCOCBC W/PLT COUNT & AUTO [id number] 04:56:52 Test Item Value Reference Range Interpretation [...] PERCENT (BEAKER) (test code = 2801) POCT-GLUCOSE [id number] 00:26:59 Test Item Value Reference Range Interpretation Comments POC-GLUCOSE METER 135 mg/dL 70-110 H : TESTED A T [facility] 6720 (BEAKER) (test code = [facility], 1538) 53057: Blog Writer/Techni smiley ID = [id number] for Teresa Rose POCT-GLUCOSE [id number] 17:22:27 Test Item Value Reference Range Interpretation Comments POC-GLUCOSE METER 127 mg/dL 70-110 H : TESTED A T [facility] 6720 (BEAKER) (test code = [facility], 1538) 83742: Blog Writer/Techni smiley ID = [id number] for Um eh, Akumbu POCT-GLUCOSE [id number] 17:20:21 Test Item Value Reference Range Interpretation Comments POC-GLUCOSE METER 23 mg/dL 70-110 LL : TESTED A T [facility] 6720 (BEAKER) (test code = [facility], 1538) 69275: Blog Writer/Techni smiley ID = [id number] for Umeh , [place]umbu POCT-GLUCOSE [id number] 12:34:42 Test Item Value Reference Range Interpretation Comments POC-GLUCOSE METER 129 mg/dL 70-110 H : TESTED A T [facility] 6720 (BEAKER) (test code = [facility], 1538) 56769: Blog Writer/Techni smiley ID = [id number] for Um eh, [place] [id number] 08:08:41 Test Item Value Reference Range Interpretation Comments MAGNESIUM (BEAKER) (test code = 1.9 mg/dL 1.6-2.6 627) Blog Writer ID - [id number] 08:08:41 Test Item Value Reference Range Interpretation Comments PHOSPHORUS (BEAKER) (test code = 3.5 mg/dL 2.3-4.7 604) Blog Writer ID - ADMINBASIC METABOLIC [id number] 08:08:40 Test Item Value Reference Range Interpretation [...] not appl icable for dialysis patien ts Blog Writer ID - ADMINPOCT-GLUCOSE [id number] 07:08:26 Test Item Value Reference Range Interpretation Comments POC-GLUCOSE METER 119 mg/dL 70-110 H : TESTED A T [facility] (BEAKER) (test code = [facility] Dunn [facility], 1538) 72526: Blog Writer/Techni smiley ID = [id number] for Saul addis Teresa CBC W/PLT COUNT & AUTO [id number] 06:25:01 Test Item Value Reference Range Interpretation [...] PERCENT (BEAKER) (test code = 2801) POCT-GLUCOSE [id number] 23:32:08 Test Item Value Reference Range Interpretation Comments POC-GLUCOSE METER 97 mg/dL 70-110 : TESTED A T [facility] 6720 (BEAKER) (test code = [facility], 1538) 28554: Blog Writer/Techni smiley ID = [id number] for Teresa Camejo POCT-GLUCOSE [id number] 17:52:25 Test Item Value Reference Range Interpretation Comments POC-GLUCOSE METER 121 mg/dL 70-110 H : [facility] T [facility] 6720 [facility] (test code = [facility], 1538) 51513: Blog Writer/Techni smiley ID = [id number] for An Donna lucas POCT-GLUCOSE [id number] 12:24:17 Test Item Value Reference Range Interpretation Comments POC-GLUCOSE METER 106 mg/dL 70-110 : TESTED A T [facility] 6720 ([facility]) (test code = [facility], 1538) 70155: Blog Writer/Techni smiley ID = [id number] for An Donna lucas VANCOMYCIN LEVEL, [id number] 10:00:44 Test Item Value Reference Range Interpretation Comments VANCOMYCIN TROUGH (BEAKER) (test 35.0 ug/mL 10.0-20.0 HH code = 522) Blog Writer ID - ADMINPOCT-GLUCOSE [id number] 06:04:34 Test Item Value Reference Range Interpretation Comments POC-GLUCOSE METER 98 mg/dL 70-110 : TESTED A T [facility] 6720 [facility] (test code = [facility], 1538) 62569: Blog Writer/Techni smiley ID = [id number] for Andi Warren [id number] 04:34:22 Test Item Value Reference Range Interpretation Comments PHOSPHORUS (BEAKER) (test code = 4.3 mg/dL 2.3-4.7 604) Blog Writer ID - mmBASIC METABOLIC [id number] 04:34:21 Test Item Value Reference Range Interpretation [...] not appl icable for dialysis patien ts Blog Writer ID - [id number] 04:34:21 Test Item Value Reference Range Interpretation Comments MAGNESIUM (BEAKER) (test code = 2.0 mg/dL 1.6-2.6 627) Blog Writer ID - mmCBC W/PLT COUNT & AUTO [id number] 04:15:17 Test Item Value Reference Range Interpretation [...] PERCENT (BEAKER) (test code = 2801) POCT-GLUCOSE [id number] 00:10:22 Test Item Value Reference Range Interpretation Comments POC-GLUCOSE METER 102 mg/dL 70-110 : TESTED A T [facility] 6720 (BEAKER) (test code [facility], = 1538) 19297: Blog Writer/Techni smiley ID = [id number] for Andi Warren BASIC METABOLIC [id number] 19:00:42 Test Item Value Reference Range Interpretation [...] not appl icable for dialysis patien ts Blog Writer ID - JSPOCT-GLUCOSE [id number] 17:28:38 Test Item Value Reference Range Interpretation Comments POC-GLUCOSE METER 122 mg/dL 70-110 H : TESTED A T [facility] 6720 (BEAKER) (test code = [facility], 1538) 14670: Blog Writer/Techni simley ID = [id number] for An derCandace causeya POCT-GLUCOSE [id number] 12:36:44 Test Item Value Reference Range Interpretation Comments POC-GLUCOSE METER 110 mg/dL 70-110 : TESTED A T [facility] 6720 (BEAKER) (test code = [facility], 1538) 20223: Blog Writer/Techni smiley ID = [id number] for An dermarium, Donna [id number] 06:20:37 Test Item Value Reference Range Interpretation Comments MAGNESIUM (BEAKER) (test code = 2.2 mg/dL 1.6-2.6 627) Blog Writer ID - [id number] 06:20:37 Test Item Value Reference Range Interpretation Comments PHOSPHORUS (BEAKER) (test code = 3.9 mg/dL 2.3-4.7 604) Blog Writer ID - ADMINBASIC METABOLIC [id number] 06:20:36 Test Item Value Reference Range Interpretation [...] not appl icable for dialysis patien ts Blog Writer ID - ADMINPOCT-GLUCOSE [id number] 06:09:53 Test Item Value Reference Range Interpretation Comments POC-GLUCOSE METER 69 mg/dL 70-110 L : TESTED A T [facility] 6720 (BEAKER) (test code = AVINASH Dunn [facility], 1538) 32988: Blog Writer/Techni smiley ID = [id number] for Andi Warren CBC W/PLT COUNT & AUTO [id number] 05:15:05 Test Item Value Reference Range Interpretation [...] code = 2801) XR ABDOMEN/KUB 1 VIEW [id number] 21:59:17 [facility] 1975 Sex: FEXAM/TECHNIQUE: XR ABDOMEN/KUB 1 VIEW PORTABLEINDICATION: Confirm corpak placementCOMPARISON: 11/05/2022.FINDINGS: Feeding tube terminates in the distal stomach. No dilated loops of largesmall bowel. No acute osseous process. Lung bases are clear.IMPRESSION:Feeding tube terminates in the distal stomach.Electronically Signed By: Carlos Preciado11/07/2022 22:01 CDTWorkstation Name: [id number] METABOLIC [id number] 18:29:04 Test Item Value Reference Range Interpretation [...] not appl icable for dialysis patien ts Blog Writer ID - BSDRUG SCREEN, URINE, [id number] 08:47:31 Test Item Value Reference Range Interpretation Comments SCAN RESULT (test see scanned report See scanned report. code = [id number]) see scanned reportPOCT-GLUCOSE [id number] 06:13:13 Test Item Value Reference Range Interpretation Comments POC-GLUCOSE METER 81 mg/dL 70-110 : TESTED A T [facility] (BEAKER) (test code = [facility], 1538) 90348: Blog Writer/Techni smiley ID = [id number] for Jessica Rodrigues [id number] 04:03:55 Test Item Value Reference Range Interpretation Comments PHOSPHORUS (BEAKER) (test code = 4.8 mg/dL 2.3-4.7 H 604) Blog Writer ID - EMBASIC METABOLIC [id number] 04:03:54 Test Item Value Reference Range Interpretation [...] not appl icable for dialysis patien ts Blog Writer ID - [id number] 04:03:54 Test Item Value Reference Range Interpretation Comments MAGNESIUM (BEAKER) (test code = 2.4 mg/dL 1.6-2.6 627) Blog Writer ID - EMHIGH SENSITIVITY TROPONIN [id number] 03:58:57 Test Item Value Reference Range Interpretation Comments HIGH SENSITIVITY 165 pg/ml See_Comment H [Automated message] TROPONIN I (test code The sy stem which = [id number]) generated this result transmitted ref erence range: <=17. Th e reference range was not used to int erpret this result as normal/abnormal . Blog Writer ID - EMThe DERMATOLOGIST STAT High Sensitivity Troponin-I results should be used in conjunctionwith other diagnostic information such as ECG, clinical observations and information, and patient symptoms to aid in the diagnosis of PA.CBC W/PLT COUNT & AUTO [id number] 03:38:52 Test Item Value Reference Range Interpretation [...] PERCENT (BEAKER) (test code = 2801) POCT-GLUCOSE [id number] 00:25:14 Test Item Value Reference Range Interpretation Comments POC-GLUCOSE METER 88 mg/dL 70-110 : TESTED A T [facility] (BEAKER) ([facility] = [facility] 24514: Blog Writer/Techni smiley ID = [id number] for Jessica Rodrigues HIGH SENSITIVITY TROPONIN [id number] 22:04:24 Test Item Value Reference Range Interpretation Comments HIGH SENSITIVITY 193 pg/ml See_Comment H [Automated message] TROPONIN I (test code The sy stem which = [id number]) generated this result transmitted ref erence range: <=17. Th e reference range was not used to int erpret this result as normal/abnormal . Blog Writer ID - DBThe DERMATOLOGIST STAT High Sensitivity Troponin-I results should be used in conjunctionwith other diagnostic information such as ECG, clinical observations and information, and patient symptoms to aid in the diagnosis of PA.URINALYSIS W/ REFLEX URINE [id number] 15:49:18 Test Item Value Reference Range Interpretation [...] /LPF 514) SOURCE(BEAKER) (test code = 2795) Blog Writer ID - [auto]Blog Writer ID - [id number] 15:35:00 Test Item Value Reference Range Interpretation [...] patients with mechanical heart valves.HIGH SENSITIVITY TROPONIN [id number] 15:30:15 Test Item Value Reference Range Interpretation Comments HIGH SENSITIVITY 264 pg/ml See_Comment H [Automated message] TROPONIN I (test code The sy stem which = [id number]) generated this result transmitted ref erence range: <=17. Th e reference range was not used to int erpret this result as normal/abnormal . Blog Writer ID - ADMINThe DERMATOLOGIST STAT High Sensitivity Troponin-I results should be used in conjunction with other diagnostic information such as ECG, clinical observations and information, and patientsymptoms to aid in the diagnosis of PA. BLOOD GAS, [id number] 15:09:57 Test Item Value Reference Range Interpretation [...] 36.0 XR CHEST 1 VIEW PORTABLE / [id number] 13:38:36 [facility] 1975 Sex: FChest, 1 view, 11/06/2022 11:58 AM.History: r/o aspiration pneumonia.Comparison: 10/30/2022.Discussion: Thecardiac silhouette is prominent but stable. Lungs areclear. There is no pneumothorax. Feeding tube terminates below thehemidiaphragm. Right IJ central line is no longer present. There are noacute osseous findings.IMPRESSION:No acute pulmonary findings.Electronically Signed By: Sage Zuly11/06/2022 13:40 CDTWorkstation Name: [id number] 2022-11-06 11:32:33 Test Item Value Reference Range Interpretation Comments PROCALCITONIN (BEAKER) (test code 0.31 ng/mL <0.05 H = 3036) SEPSIS RISK (ng/mL)Low: 0.05-0.50Intermediate: 0.51-2.00High: >=2.01HIGH SENSITIVITY TROPONIN [id number] 11:27:53 Test Item Value Reference Range Interpretation Comments HIGH SENSITIVITY 344 pg/ml See_Comment H [Automated message] TROPONIN I (test code The stem which = [id number]) generated this result transmitted ref erence range: <=17. Th e reference range was not used to int erpret this result as normal/abnormal . Blog Writer ID - DAMIÁN WThe DERMATOLOGIST STAT High Sensitivity Troponin-I results should be used in conjunction with other diagnostic information such as ECG, clinical observations and information, and patient symptoms to aid in the diagnosis of PA.LACTIC ACID, [id number] 11:07:17 Test Item Value Reference Range Interpretation Comments LACTATE BLOOD VENOUS (2) (BEAKER) 0.80 mmol/L 0.50-2.00 (test code = 2872) Blog Writer ID - DAMIÁN WCT BRAIN WITHOUT IV [id number] 10:59:53 [facility] Irineo : 1975 [...] Signed By: Alexandra Liang11/06/2022 11:01 CDTWorkstation Name: [id number] 10:57:58 Test Item Value Reference Range Interpretation Comments POC-HEMATOCRIT 34 % 36-45 L : Blog Writer/Te chnician ID = (WESLEY) (test code = 225209 for CARLOS, 185) SAMY [id number] 10:57:58 Test Item Value Reference Range Interpretation Comments POC-GLUCOSE (WESLEY) 117 mg/dL 70-110 H : TESTE D AT [facility] 6720 (test code = 1855) [facility], [address]: Blog Writer/Techni smiley ID = [id number] for RACE SAMY GUPTA [id number] 10:57:57 Test Item Value Reference Range Interpretation Comments POC-POTASSIUM 5.5 meq/L 3.6-5.5 : TESTED AT [place] [address] (BEAKER) (test code [facility], = 1540) 37976: Blog Writer/Techni smiley ID = [id number] for RACE SAMY GUPTA [id number] 10:57:57 Test Item Value Reference Range Interpretation Comments POC-HEMOGLOBIN 11.6 g/dL 12.0-15.0 L : TESTED AT [place] [address] (BEAKER) (test code [facility], = 1856) 30482: Blog Writer/Techni smiley ID = [id number] for SAMY DAVIS [id number] 10:57:52 Test Item Value Reference Range Interpretation Comments POC-SODIUM (BEAKER) 142 meq/L 135-148 : TESTED AT [place] [address] (test code = 1542) [facility], [address]: Blog Writer/Techni smiley ID = [id number] for RACE SAMY GUPTA POCT-BLOOD GASES, [id number] 10:57:51 Test Item Value Reference Range Interpretation [...] 7.0 meq/L -2.0-3.0 H : [facility] ARTERIAL-[facility]OC [facility], (BEAKER) (test code 900[address]: = 1841) Blog Writer/Techni smiley ID = [id number] for SAMY DAVIS POCT-GLUCOSE [id number] 10:21:20 Test Item Value Reference Range Interpretation Comments POC-GLUCOSE METER 117 mg/dL 70-110 H : TESTED A T [facility] 6720 (BEAKER) (test code = [facility], 1538) 58033: Blog Writer/Techni smiley ID = [id number] for MANDA ESPARZA POCT-GLUCOSE [id number] 05:45:28 Test Item Value Reference Range Interpretation Comments POC-GLUCOSE METER 116 mg/dL 70-110 H : TESTED A T [facility] 6720 (BEAKER) (test code = [facility], 1538) 38240: Blog Writer/Techni smiley ID = [id number] for Teresa Rose BASIC METABOLIC [id number] 05:42:31 Test Item Value Reference Range Interpretation [...] not appl icable for dialysis patien ts Blog Writer ID - [id number] 05:40:46 Test Item Value Reference Range Interpretation Comments MAGNESIUM (BEAKER) (test code = 2.9 mg/dL 1.6-2.6 H 627) Blog Writer ID - [id number] 05:40:46 Test Item Value Reference Range Interpretation Comments PHOSPHORUS (BEAKER) (test code = 6.5 mg/dL 2.3-4.7 H 604) Blog Writer ID - ADMINCBC W/PLT COUNT & AUTO [id number] 05:38:35 Test Item Value Reference Range Interpretation [...] PERCENT (BEAKER) (test code = 2801) POCT-GLUCOSE [id number] 23:35:25 Test Item Value Reference Range Interpretation Comments POC-GLUCOSE METER 135 mg/dL 70-110 H : TESTED A T [facility] 6720 (BEAKER) (test code = [facility], 1538) 83782: Blog Writer/Techni smiley ID = [id number] for Teresa Rose POCT-GLUCOSE [id number] 17:28:48 Test Item Value Reference Range Interpretation Comments POC-GLUCOSE METER 101 mg/dL 70-110 : TESTED A T [facility] 6720 (BEAKER) (test code = [facility], 1538) 21482: Blog Writer/Techni smiley ID = [id number] for CIRA HUMPHREY BLOOD [id number] 17:00:30 Test Item Value Reference Range Interpretation Comments CULTURE (BEAKER) (test No growth in 5 days code = 1095) BLOOD [id number] 17:00:30 Test Item Value Reference Range Interpretation Comments CULTURE (BEAKER) (test No growth in 5 days code = 1095) XR ABDOMEN/KUB 1 VIEW [id number] 14:17:07 [facility] : 1975 Sex: FXR ABDOMEN/KUB 1 VIEW PORTABLETECHNIQUE: Supine radiograph(s) of the abdomen and pelvis.HISTORY: corpak placementCOMPARISON: 12/04/2022IMPRESSION:Lines and tubes: Enteric tube is seen with tip in the stomachElectronically Signed By: Sarah Carrera11/05/2022 14:19 CDTWorkstation Name: [id number] 12:53:33 Test Item Value Reference Range Interpretation Comments POC-GLUCOSE METER 88 mg/dL 70-110 : TESTED A T [facility] 6720 (BEAKER) (test code = [facility], 1538) 35411: Blog Writer/Techni smiley ID = [id number] for CIRA ROLAND POCT-GLUCOSE [id number] 06:25:50 Test Item Value Reference Range Interpretation Comments POC-GLUCOSE METER 110 mg/dL 70-110 : TESTED A T [facility] 6720 (BEAKER) (test code = [facility], 1538) 52548: Blog Writer/Techni smiley ID = [id number] for NADEGE IVEY BASIC METABOLIC [id number] 04:16:53 Test Item Value Reference Range Interpretation [...] not appl icable for dialysis patien ts Blog Writer ID Gisele STEEL [id number] 04:16:53 Test Item Value Reference Range Interpretation Comments MAGNESIUM (BEAKER) (test code = 2.8 mg/dL 1.6-2.6 H 627) Blog Writer ID Gisele STEEL [id number] 04:16:53 Test Item Value Reference Range Interpretation Comments PHOSPHORUS (BEAKER) (test code = 5.7 mg/dL 2.3-4.7 H 604) Blog Writer ID Gisele STEEL WCBC W/PLT COUNT & AUTO [id number] 03:44:05 Test Item Value Reference Range Interpretation [...] PERCENT (BEAKER) (test code = 2801) POCT-GLUCOSE [id number] 23:25:33 Test Item Value Reference Range Interpretation Comments POC-GLUCOSE METER 114 mg/dL 70-110 H : TESTED A T [facility] 6720 (BEAKER) (test code = [facility], 1538) 95200: Blog Writer/Techni smiley ID = [id number] for NADEGE IVEY [id number] 18:58:11 Test Item Value Reference Range Interpretation Comments SODIUM (BEAKER) (test code = 381) 142 meq/L 136-145 Blog Writer ID - JSPOCT-GLUCOSE [id number] 17:04:52 Test Item Value Reference Range Interpretation Comments POC-GLUCOSE METER 142 mg/dL 70-110 H : TESTED A T [facility] 6720 (BEAKER) (test code = [facility] Mona [facility], 1538) 89858: Blog Writer/Techni smiley ID = [id number] for MANDA ESPARZA POCT-GLUCOSE [id number] 12:43:34 Test Item Value Reference Range Interpretation Comments POC-GLUCOSE METER 127 mg/dL 70-110 H : TESTED A T [facility] 6720 (BEAKER) (test code = [facility], 1538) 61698: Blog Writer/Techni smiley ID = [id number] for MANDA ESPARZA [id number] 12:42:31 Test Item Value Reference Range Interpretation Comments SODIUM (BEAKER) (test code = 381) 141 meq/L 136-145 Blog Writer ID - JSPOCT-GLUCOSE [id number] 05:53:11 Test Item Value Reference Range Interpretation Comments POC-GLUCOSE METER 122 mg/dL 70-110 H : TESTED A T [facility] 6720 (BEAKER) (test code = [facility], 1538) 03436: Blog Writer/Techni smiley ID = [id number] for NADEGE IVEY [id number] 04:57:58 Test Item Value Reference Range Interpretation Comments PHOSPHORUS (BEAKER) 6.1 mg/dL 2.3-4.7 H Specimen slightly (test code = 604) hemolyzed Blog Writer ID - DAMIÁN WBASIC METABOLIC [id number] 04:57:58 Test Item Value Reference Range Interpretation [...] not appl icable for dialysis patien ts Blog Writer ID - DAMIÁN [id number] 04:57:57 Test Item Value Reference Range Interpretation Comments MAGNESIUM (BEAKER) 2.7 mg/dL 1.6-2.6 H Specimen slightly (test code = 627) hemolyzed Blog Writer ID - DAMIÁN WCBC W/PLT COUNT & AUTO [id number] 04:36:11 Test Item Value Reference Range Interpretation [...] PERCENT (BEAKER) (test code = 2801) POCT-GLUCOSE [id number] 00:26:17 Test Item Value Reference Range Interpretation Comments POC-GLUCOSE METER 117 mg/dL 70-110 H : TESTED A T [facility] 6720 (BEAKER) (test code = [facility], 153) 10782: Blog Writer/Techni smiley ID = [id number] for NADEGE IVEY [id number] 19:29:04 Test Item Value Reference Range Interpretation Comments SODIUM (BEAKER) (test code = 381) 141 meq/L 136-145 Blog Writer ID - ADMINPOCT-GLUCOSE [id number] 16:58:24 Test Item Value Reference Range Interpretation Comments POC-GLUCOSE METER 142 mg/dL 70-110 H : TESTED A T [facility] 6720 (BEAKER) (test code = [facility], 153) 41872: Blog Writer/Techni smiley ID = [id number] for MANDA ESPARZA XR ABDOMEN/KUB 1 VIEW [id number] 13:01:43 [facility] 1975 Sex: FAbdomen , one viewHistory:Feeding tube placementComparison:10/30/2022Findings:Tip of the feeding tube is near the pylorus. Nonobstructive bowel gaspattern. Cholecystectomy clips within the right upper quadrant.Electronically Signed By: Kam Vigil MD11/03/2022 13:03 CDTWorkstation Name: [id number] 12:39:24 Test Item Value Reference Range Interpretation Comments SODIUM (BEAKER) (test code = 381) 142 meq/L 136-145 POCT-GLUCOSE [id number] 12:05:03 Test Item Value Reference Range Interpretation Comments POC-GLUCOSE METER 118 mg/dL 70-110 H : TESTED A T [facility] 6720 (BEAKER) (test code = AVINASH Mona [facility], 1538) [address]: Blog Writer/Techni smiley ID = [id number] for MANDA ESPARZA [id number] 06:17:11 Test Item Value Reference Range Interpretation Comments PHOSPHORUS (BEAKER) (test code = 4.1 mg/dL 2.3-4.7 604) Blog Writer ID - DAMIÁN WBASIC METABOLIC [id number] 06:17:10 Test Item Value Reference Range Interpretation [...] not appl icable for dialysis patien ts Blog Writer ID - DAMIÁN [id number] 06:17:10 Test Item Value Reference Range Interpretation Comments MAGNESIUM (BEAKER) (test code = 2.4 mg/dL 1.6-2.6 627) Blog Writer ID - DAMIÁN WPOCT-GLUCOSE [id number] 05:50:21 Test Item Value Reference Range Interpretation Comments POC-GLUCOSE METER 121 mg/dL 70-110 H : TESTED A T [facility] (BEAKER) (test code = AVINASH Dunn [facility], 1538) [address]: Blog Writer/Techni smiley ID = [id number] for NADEGE IVEY CBC W/PLT COUNT & AUTO [id number] 05:25:22 Test Item Value Reference Range Interpretation [...] PERCENT (BEAKER) (test code = 2801) POCT-GLUCOSE [id number] 23:36:51 Test Item Value Reference Range Interpretation Comments POC-GLUCOSE METER 116 mg/dL 70-110 H : TESTED Oscar T [facility] 6720 (BEAKER) (test code = [facility] [place], 1538) 07987: Blog Writer/Techni smiley ID = [id number] for JODI IVANJOSE JAVEDNANETTEPATOscar [id number] 18:30:49 Test Item Value Reference Range Interpretation Comments SODIUM (BEAKER) (test code = 381) 141 meq/L 136-145 Blog Writer ID - ADMINPOCT-GLUCOSE [id number] 17:57:14 Test Item Value Reference Range Interpretation Comments POC-GLUCOSE METER 118 mg/dL 70-110 H : TESTED A T [facility] 6720 (BEAKER) (test code = [facility], 1538) 62304: Blog Writer/Techni smiley ID = [id number] for An Donna lucas MRSA [id number] 14:39:15 Test Item Value Reference Range Interpretation Comments CULTURE (BEAKER) (test code No MRSA isolated = 1095) [id number] 13:35:39 Test Item Value Reference Range Interpretation Comments SODIUM (BEAKER) (test code = 381) 139 meq/L 136-145 Blog Writer ID - BVPOCT-GLUCOSE [id number] 13:06:41 Test Item Value Reference Range Interpretation Comments POC-GLUCOSE METER 134 mg/dL 70-110 H : TESTED A T [facility] 6720 (BEAKER) (test code = [facility], 1538) 65705: Blog Writer/Techni smiley ID = [id number] for An Donna lucas CT BRAIN WITHOUT IV [id number] 13:00:59 [facility] 1975 Sex: FCT [...] Signed By: Alexandra Liang11/02/2022 13:03 CDTWorkstation Name: [id number] 06:29:29 Test Item Value Reference Range Interpretation Comments SODIUM (BEAKER) (test code = 381) 139 meq/L 136-145 BASIC METABOLIC [id number] 06:29:28 Test Item Value Reference Range Interpretation [...] not appl icable for dialysis patien ts Blog Writer ID - [id number] 06:29:28 Test Item Value Reference Range Interpretation Comments MAGNESIUM (BEAKER) (test code = 2.2 mg/dL 1.6-2.6 627) Blog Writer ID - [id number] 06:29:28 Test Item Value Reference Range Interpretation Comments PHOSPHORUS (BEAKER) (test code = 3.8 mg/dL 2.3-4.7 604) Blog Writer ID - MARCOPOCT-GLUCOSE [id number] 06:21:55 Test Item Value Reference Range Interpretation Comments POC-GLUCOSE METER 125 mg/dL 70-110 H : TESTED A T [facility] [id number] (BEAKER) (test code = AVINASH ISLAS ID, [id number]) [id number]: Blog Writer/Techni smiley ID = [id number] for NADEGE IVEY CBC W/PLT COUNT & AUTO [id number] 06:08:00 Test Item Value Reference Range Interpretation [...] PERCENT (BEAKER) (test code = 2801) POCT-GLUCOSE [id number] 00:19:06 Test Item Value Reference Range Interpretation Comments POC-GLUCOSE METER 99 mg/dL 70-110 : TESTED A T [facility] 6720 (BEAKER) (test code = AVINASH Dunn [facility], 1538) [address]: Blog Writer/Techni smiley ID = [id number] for NADEGE MORALES [id number] 18:45:56 Test Item Value Reference Range Interpretation Comments SODIUM (BEAKER) (test code = 381) 140 meq/L 136-145 Blog Writer ID - ADMPOCT-GLUCOSE [id number] 18:39:21 Test Item Value Reference Range Interpretation Comments POC-GLUCOSE METER 121 mg/dL 70-110 H : TESTED A T [facility] 6720 (BEAKER) (test code [facility], = 1538) [address]: Blog Writer/Techni smiley ID = [id number] for Latonia Connolly [id number] 14:24:36 Test Item Value Reference Range Interpretation Comments SODIUM (BEAKER) (test code = 381) 140 meq/L 136-145 Blog Writer ID - [id number] 10:06:02 Test Item Value Reference Range Interpretation Comments POTASSIUM (BEAKER) (test code = 3.8 meq/L 3.5-5.1 379) Blog Writer ID - [id number] 10:06:01 Test Item Value Reference Range Interpretation Comments MAGNESIUM (BEAKER) (test code = 2.3 mg/dL 1.6-2.6 627) Blog Writer ID - ADMVANCOMYCIN LEVEL, [id number] 09:59:39 Test Item Value Reference Range Interpretation Comments VANCOMYCIN TROUGH (BEAKER) (test 8.4 ug/mL 10.0-20.0 L code = 522) Blog Writer ID - [id number] 04:21:26 Test Item Value Reference Range Interpretation Comments MAGNESIUM (BEAKER) (test code = 2.0 mg/dL 1.6-2.6 627) Blog Writer ID - [id number] 04:21:26 Test Item Value Reference Range Interpretation Comments PHOSPHORUS (BEAKER) (test code = 3.2 mg/dL 2.3-4.7 604) Blog Writer ID - ADMINBASIC METABOLIC [id number] 04:21:25 Test Item Value Reference Range Interpretation [...] not appl icable for dialysis patien ts Blog Writer ID - ADMINCBC W/PLT COUNT & AUTO [id number] 03:36:42 Test Item Value Reference Range Interpretation [...] 0.00-1.00 PERCENT (BEAKER) (test code = 2801) [id number] 00:11:29 Test Item Value Reference Range Interpretation Comments SODIUM (BEAKER) (test code = 381) 139 meq/L 136-145 Blog Writer ID - [id number] 18:25:44 Test Item Value Reference Range Interpretation Comments SODIUM (BEAKER) (test code = 381) 139 meq/L 136-145 Blog Writer ID - esauSARS-COV2/INFLUENZA/RSV [id number] 14:03:24 Test Item Value Reference Range Interpretation Comments SARS-COV2/RT-PCR Negative Negative The SARS-Co V-2 target (test code = nucleic acids a re not 9603689) detected in thi s specimen. Negat yesika [...] individuals amanda pected of COVID-19 by the [facility]. INFLUENZA A RT-PCR Negative Negative The Flu A target nucleic (test code = acids are not d etected in 0198986) this specimen. INFLUENZA B RT-PCR Negative Negative The Flu B target nucleic (test code = acids are not d etected in 19100422) this specimen. RSV RT-PCR (test Negative Negative The RSV tar get nucleic code = 6108540) acids are no t detected in this [...] Xpress SARS-CoV-2/Flu/RSV by their healthcareprovider. Results from [facility] Xpert Xpress SARS-CoV-2/Flu/RSV test should be [...] of the Act.Fact Sheet for Healthcare Providers:https ://www.[employer].Capt[employer]/Documents/Xpert%20Xpress%20SARS%20CoV-2/Fact%20Sheets/302-390 2%73EYDD-WIT-7%20HEALTHCARE%20PROVIDERS%20FACT%20SHEET.pdfFact Sheet for Healthcare Patients:https://www.[employer]/Docum ents/Xpert%20Xpress%20SARS%20Cov-2/Fact%20Sheets/3023809%21OXAD-QCW-9%20PATIENT %20FACT%20SHEET.bueAOJBJI2189-59-57 12:52:25 Test Item Value Reference Range Interpretation Comments SODIUM (BEAKER) (test code = 381) 135 meq/L 136-145 L Blog Writer ID - [id number] 12:52:24 Test Item Value Reference Range Interpretation Comments MAGNESIUM (BEAKER) (test code = 2.4 mg/dL 1.6-2.6 627) Blog Writer ID - esauPOCT-GLUCOSE [id number] 12:00:51 Test Item Value Reference Range Interpretation Comments POC-GLUCOSE METER 130 mg/dL 70-110 H : TESTED A T [facility] 6720 (BEAKER) (test code [facility], = 1538) [address]: Blog Writer/Techni smiley ID = [id number] for Latonia Connolly B-TYPE NATRIURETIC FACTOR (BNP)2022-10-31 10:43:21 Test Item Value Reference Range Interpretation Comments B-TYPE NATRIURETIC PEPTIDE (BEAKER) 568 pg/mL 0-100 H (test code = 700) Blog Writer ID - [id number] 05:07:29 Test Item Value Reference Range Interpretation Comments MAGNESIUM (BEAKER) (test code = 1.9 mg/dL 1.6-2.6 627) Blog Writer ID - [id number] 05:07:29 Test Item Value Reference Range Interpretation Comments PHOSPHORUS (BEAKER) (test code = 3.7 mg/dL 2.3-4.7 604) Blog Writer ID - ADMINBASIC METABOLIC [id number] 05:07:28 Test Item Value Reference Range Interpretation [...] not appl icable for dialysis patien ts Blog Writer ID - ADMINCBC W/PLT COUNT & AUTO [id number] 04:47:13 Test Item Value Reference Range Interpretation [...] 0.00-1.00 PERCENT (BEAKER) (test code = 2801) [id number] 23:06:40 Test Item Value Reference Range Interpretation Comments SODIUM (BEAKER) (test code = 381) 133 meq/L 136-145 L Blog Writer ID - ADMINHIGH SENSITIVITY TROPONIN [id number] 22:59:43 Test Item Value Reference Range Interpretation Comments HIGH SENSITIVITY 92 pg/ml See_Comment H [Automated message] TROPONIN I (test code = The system which 4291984) generated this result transmitted ref erence range: <=17. Th e reference range was not used to int erpret this result as normal/abnormal . Blog Writer ID - ADMINThe DERMATOLOGIST STAT High Sensitivity Troponin-I results should be used in conjunction with other diagnostic information such as ECG, clinical observations and information, and patientsymptoms to aid in the diagnosis of PA. XR ABDOMEN/KUB 1 VIEW [id number] 18:54:45 [facility] 1975 Sex: FTECHNIQUE: XR ABDOMEN/KUB 1 VIEW PORTABLEINDICATION: corpak placement.COMPARISON: 10/29/2022FINDINGS:Feeding tube tip projecting over the body of the stomach. No specificevidence for bowel obstruction. Cholecystectomy clips are noted. Supineradiographs are insensitive for detection of free intraperitoneal a ir.IMPRESSION:Feeding tube tip projects over the body of the stomach.Electronically Signed By: Mo Soares10/30/2022 18:56 CDTWorkstation Name: [id number] SENSITIVITY TROPONIN [id number] 17:30:01 Test Item Value Reference Range Interpretation Comments HIGH SENSITIVITY 123 pg/ml See_Comment H [Automated message] TROPONIN I (test code The sy stem which = [id number]) generated this result transmitted ref erence range: <=17. Th e reference range was not used to int erpret this result as normal/abnormal . Blog Writer ID - BSThe DERMATOLOGIST STAT High Sensitivity Troponin-I results should be used in conjunctionwith other diagnostic information such as ECG, clinical observations and information, and patient symptoms to aid in the diagnosis of PA.LACTIC ACID, [id number] 17:25:59 Test Item Value Reference Range Interpretation Comments LACTATE BLOOD ARTERIAL (2) 1.0 mmol/L 0.5-2.0 (BEAKER) (test code = 2874) Blog Writer ID - [id number] 17:21:36 Test Item Value Reference Range Interpretation Comments SODIUM (BEAKER) (test code = 381) 136 meq/L 136-145 Blog Writer ID - ADMINBLOOD GAS, [id number] 14:46:08 Test Item Value Reference Range Interpretation [...] FIO2 (BEAKER) (test code = 1819) 100.0 [id number] 12:47:53 Test Item Value Reference Range Interpretation Comments SODIUM (BEAKER) (test code = 381) 137 meq/L 136-145 Blog Writer ID - JSLACTIC ACID, [id number] 12:47:37 Test Item Value Reference Range Interpretation Comments LACTATE BLOOD 2.3 mmol/L 0.5-2.0 H Specimen sligh tly ARTERIAL (2) (BEAKER) hemoly zed (test code = 2874) Blog Writer ID - JSBLOOD GAS, [id number] 12:23:19 Test Item Value Reference Range Interpretation [...] FIO2 (BEAKER) (test code = 1819) 100.0 [id number] 11:15:25 Test Item Value Reference Range Interpretation Comments PROCALCITONIN (BEAKER) (test code 0.05 ng/mL <0.05 H = 3036) SEPSIS RISK (ng/mL)Low: 0.05-0.50Intermediate: 0.51-2.00High: >=2.01HIGH SENSITIVITY TROPONIN [id number] 11:10:59 Test Item Value Reference Range Interpretation Comments HIGH SENSITIVITY 139 pg/ml See_Comment H [Automated message] TROPONIN I (test code The arvind dsouza which = 1521669) generated this result transmitted ref erence range: <=17. Th e reference range was not used to int erpret this result as normal/abnormal . Blog Writer ID - JSThe DERMATOLOGIST STAT High Sensitivity Troponin-I results should be used in conjunctionwith other diagnostic information such as ECG, clinical observations and information, and patient symptoms to aid in the diagnosis of PA.XR CHEST 1 VIEW PORTABLE / [id number] 10:47:01 [facility] 1975 Sex: FCLINICAL HISTORY: desaturationTECHNIQUE: 1 view of the chest.COMPARISON: 10/29/2022IMPRESSION:ETT no longer seen. New feeding tube below the diaphragm. Right centralline remains in the right atrium. There are mildly increased bilaterallower lung airspace opacities with blunting of both costophrenic angles.The cardiomediastinal silhouette is magnified by technique.Electronically Signed By: Yeyo Mills10/30/2022 10:49 CDTWorkstation Name: [id number] BRAIN WITHOUT IV [id number] 09:21:03 [facility] 1975 Sex: FCT [...] Signed By: Luís Mclain10/30/2022 09:23 CDTWorkstation Name: [id number] 04:21:01 Test Item Value Reference Range Interpretation Comments PHOSPHORUS (BEAKER) (test code = 3.2 mg/dL 2.3-4.7 604) Blog Writer ID - EMBASIC METABOLIC [id number] 04:21:00 Test Item Value Reference Range Interpretation [...] not appl icable for dialysis patien ts Blog Writer ID - [id number] 04:21:00 Test Item Value Reference Range Interpretation Comments MAGNESIUM (BEAKER) (test code = 1.7 mg/dL 1.6-2.6 627) Blog Writer ID - EMCBC W/PLT COUNT & AUTO [id number] 03:30:03 Test Item Value Reference Range Interpretation [...] 0.00-1.00 PERCENT (BEAKER) (test code = 2801) [id number] 00:34:48 Test Item Value Reference Range Interpretation Comments SODIUM (BEAKER) (test code = 381) 137 meq/L 136-145 Blog Writer ID - ADMINXR ABDOMEN/KUB 1 VIEW [id number] 18:55:43 [facility] 1975 Sex: FTECHNIQUE: [...] Signed By: Mo Soares10/29/2022 18:57 CDTWorkstation Name: [id number] 2022-10-29 18:31:20 Test Item Value Reference Range Interpretation Comments SODIUM (BEAKER) (test code = 381) 138 meq/L 136-145 Blog Writer ID - ADMINCREATININE, RANDOM [id number] 15:21:04 Test Item Value Reference Range Interpretation Comments CREATININE URINE (BEAKER) (test 24.5 mg/dL code = 375) Reference Range: No NormalsOperator ID - ADMINRAPID DRUG SCREEN, [id number] 14:06:15 Test Item Value Reference Range Interpretation [...] situations. Chain of custody not maintained. Some hyiz-ajl-ignclwk medications, as well as adulterants, may cause inaccurate results. Clinical correlation should be applied. A more comprehensive drug screen or confirmation of a detected drug may be performed upon request.Blog Writer ID - JSOperator ID - [auto] HEMOGLOBIN [id number] 13:23:17 Test Item Value Reference Range Interpretation Comments HEMOGLOBIN A1C 4.5 % See_Comment [Automated m essage] ELECTROPHORESIS (Apliiq) The system which (test code = 3811) generated this result transmitted ref erence range: <=5.6%. The reference range was not used to int erpret this result as normal/abnormal . "The A1c is measured using a NGSP-certified method. HbA1c value equal to or greater than 6.5% as thediagnosis cutoff for diabetes. An HbA1c value of 5.7- 6.4% indicates increased risk for diabetes (prediabetes)."Blog Writer ID - ADMOperator ID - ADMCTA [id number] 13:16:45 [facility] 1975 Sex: FCT BRAIN WITHOUT IV CONTRAST, CTA CAROTID, CTA BRAINBRAIN CT WITHOUT CONTRASTINDICATION: Unlisted Reason for Exam, intraparenchymal hematomaCOMPARISON: NoneTECHNIQUE:Rapid acquisition spiral images were obtained between the aortic archand the cranial vertex during intravenous contrast infusion toreconstruct axial images and angiographic 3D maximum intensityprojections (MIP). 3-D volumetric reformatted images were created at [employer] workstation. Precontrast images of the brain were [...] Signed By: Luís Mclain10/29/2022 13:18 CDTWorkstation Name: [id number] BRAIN WITHOUT IV [id number] 13:16:45 [facility] : 1975 Sex: FCT BRAIN WITHOUT IV CONTRAST, CTA CAROTID, CTA BRAINBRAIN CT WITHOUT CONTRASTINDICATION: Unlisted Reason for Exam, intraparenchymal hematomaCOMPARISON: NoneTECHNIQUE:Rapid acquisition spiral images were obtained between the aortic archand the cranial vertex during intravenous contrast infusion toreconstruct axial images and angiographic 3D maximum intensityprojections (MIP). 3-D volumetric reformatted images were created at [employer] workstation. Precontrast images of the brain were [...] Signed By: Luís Mclain10/29/2022 13:18 CDTWorkstation Name: [id number] 13:16:45[facility] : 1975 Sex: FCT BRAIN WITHOUT IV CONTRAST, CTA CAROTID, CTA BRAINBRAIN CT WITHOUT CONTRASTINDICATION: Unlisted Reason for Exam, intraparenchymal hematomaCOMPARISON: NoneTECHNIQUE:Rapid acquisition spiral images were obtained between the aortic archand the cranial vertex during intravenous contrast infusion toreconstruct axial images and angiographic 3D maximum intensityprojections (MIP). 3-D volumetric reformatted images were created at [employer] workstation. Precontrast images of the brain were [...] Signed By: Luís Mclain10/29/2022 13:18 CDTWorkstation Name: [id number], QUANTITATIVE, [id number] 13:15:24 Test Item Value Reference Range Interpretation Comments GONADOTROPIN, CHORIONIC (HCG) QUANT < mIU/mL 0-[address] ([facility]) (test code = 649) Non- Females: <10 mIU/mL Females: Gestation Age Reference Range(mIU/mL) 0.2-1 Week 5-50 1-2 Weeks 50-500 2-3 Weeks 100-5,000 3-4 Weeks 500-10,000 4-5 Weeks 1,000-50,000 5-6 Weeks 10,000-100,000 6-8 Weeks 15,000- 200,000 2-3 Months 10,000-100,000 Blog Writer ID - MARCOOSMOLALITY, [id number] 13:07:55 Test Item Value Reference Range Interpretation Comments OSMOLALITY URINE 529 mOsm/kg See_Comment [Automated message] ([facility]) (test code = The sy stem which 614) generated this result transmitted ref erence range: 50-1,200 mOsm/kg. The reference range was not used to int erpret this result as normal/abnormal . UREA NITROGEN, RANDOM [id number] 12:57:04 Test Item Value Reference Range Interpretation Comments UREA NITROGEN URINE (BEAKER) (test 186 mg/dL code = 538) Reference Range: No NormalsOperator ID - JSSODIUM, RANDOM [id number] 12:57:03 Test Item Value Reference Range Interpretation Comments SODIUM URINE (BEAKER) (test code = 155 meq/L 243) Reference Range: No NormalsOperator ID - JSOSMOLALITY, [id number] 12:52:21 Test Item Value Reference Range Interpretation Comments OSMOLALITY, SERUM (BEAKER) (test 290 mOsm/kg 275-295 code = 615) [id number] 12:52:14 Test Item Value Reference Range Interpretation Comments SODIUM (BEAKER) (test code = 381) 140 meq/L 136-145 Blog Writer ID - MARCOPREGNANCY SCREEN, [id number] 09:52:55 Test Item Value Reference Range Interpretation Comments TEST URINE (BEAKER) (test Negative Negative code = 583) BLOOD GAS, [id number] 08:02:40 Test Item Value Reference Range Interpretation [...] (BEAKER) (test code = 1819) 40.0 T4, [id number] 06:13:37 Test Item Value Reference Range Interpretation Comments FREE T4 (BEAKER) (test code = 655) 0.90 ng/dL 0.70-1.48 Blog Writer ID - ADMINTSH/FREE T4 IF [id number] 05:34:42 Test Item Value Reference Range Interpretation Comments THYROID STIMULATING HORMONE 6.331 uIU/mL 0.350-4.940 H (BEAKER) (test code = 772) Blog Writer ID - [id number] 05:26:57 Test Item Value Reference Range Interpretation Comments MAGNESIUM (BEAKER) (test code = 1.8 mg/dL 1.6-2.6 627) Blog Writer ID - [id number] 05:26:57 Test Item Value Reference Range Interpretation Comments PHOSPHORUS (BEAKER) (test code = 3.0 mg/dL 2.3-4.7 604) Blog Writer ID - MARCOCOMPREHENSIVE METABOLIC [id number] 05:26:56 Test Item Value Reference Range Interpretation [...] not appl icable for dialysis patien ts Blog Writer ID - MARCOXR CHEST 1 VIEW PORTABLE / [id number] 05:03:50 [facility] 1975 Sex: [...] Signed By: Jaziel Monte10/29/2022 05:05 CDTWorkstation Name: [id number] 04:56:04 Test Item Value Reference Range Interpretation Comments PARTIAL THROMBOPLASTIN TIME 30.4 seconds 22.5-36.0 (BEAKER) (test code = 760) PROTHROMBIN TIME/[id number] 04:55:22 Test Item Value Reference Range Interpretation Comments PROTIME (BEAKER) 13.6 seconds 11.9-14.2 (test code = 759) INR (BEAKER) (test 1.06 See_Comment [Automat ed message] code = 370) The system [employer] generated this result transmitted ref erence range: <=5.90. The reference range was not used to int erpret this result as normal/abnormal . RECOMMENDED COUMADIN/WARFARIN INR THERAPY RANGESSTANDARD DOSE: 2.0 - 3.0 Includes: PROPHYLAXIS for venous thrombosis, systemic embolization; TREATMENT for venous thrombosis and/or pulmonary embolus.HIGH RISK: Target INR is 2.5-3.5 for patients with mechanical heart valves.CBC W/PLT COUNT & AUTO [id number] 04:50:18 Test Item Value Reference Range Interpretation [...] (BEAKER) (test code = 2801) BLOOD GAS, [id number] 04:03:20 Test Item Value Reference Range Interpretation [...] (BEAKER) (test code = 1819) 60.0 CALCIUM, [id number] 03:59:22 Test Item Value Reference Range Interpretation Comments CALCIUM IONIZED (BEAKER) (test 1.09 mmol/L 1.12-1.27 L code = 698) PH, BLOOD (BEAKER) (test code = 7.33 1810) Fungus culture + [id number] 08:28:10 Test Item Value Reference Range Interpretation Comments Result (test code = No fungus isolated in 6463-4) 28 days Fungus Smear (test No fungal elements seen code = 1406) [facility] + [id number] 08:28:10 Test Item Value Reference Range Interpretation Comments CULTURE (BEAKER) (test No fungus isolated in code = 1095) 28 days FUNGUS SMEAR (BEAKER) No fungal elements seen (test code = 1406) [id number] 05:54:28 Test Item Value Reference Range Interpretation Comments MAGNESIUM (BEAKER) (test code = 1.9 mg/dL 1.6-2.6 627) Blog Writer ID - [id number] 05:54:28 Test Item Value Reference Range Interpretation Comments PHOSPHORUS (BEAKER) (test code = 5.2 mg/dL 2.3-4.7 H 604) Blog Writer ID - MARCOBASIC METABOLIC [id number] 05:54:27 Test Item Value Reference Range Interpretation [...] not appl icable for dialysis patien ts Blog Writer ID - MARCOCBC W/PLT COUNT & AUTO [id number] 05:42:51 Test Item Value Reference Range Interpretation [...] PERCENT (BEAKER) (test code = 2801) CALCIUM, [id number] 05:36:04 Test Item Value Reference Range Interpretation Comments CALCIUM IONIZED (BEAKER) (test 1.12 mmol/L 1.12-1.27 code = 698) PH, BLOOD (BEAKER) (test code = 7.42 1810) Anaerobic [id number] 02:03:45 Test Item Value Reference Range Interpretation Comments Result (test code = No anaerobes isolated 6463-4) [facility] [id number] 02:03:45 Test Item Value Reference Range Interpretation Comments CULTURE (BEAKER) (test No anaerobes isolated code = 1095) STD Panel - CT/GC [id number] 17:37:44 Test Item Value Reference Interpretation Comments Range C. trachomatis NOT DETECTED RNA, TMA (test code = 0259416) N. gonorrhoeae NOT DETECTED REFERENCE RA NGE: NOT RNA, TMA (test DETECTED Meth odology: code = 1730132) Transcriptio n Mediated Amplification ( TMA)to detect RNA. The analytical perf ormance characteristics of thisassay, when used to test SurePat h(TM) specimens haveb een determined by [employer]. Th e modificationsha ve not been cleared or approved by the FDA. This assayhas b een validated pursu ant to the CLIA regula tions andis used for clinical purpos es. For additional information, pl ease refer tohttps://educa tion.QThru. Captify/faq /GVX516(This li nk is being provided for informational/e ducatio nal purposes on ly.) SUE (test code = Performing Lab SUE) *QDID [facility] [address] [address] Sylvie Gresham MD, PhD [facility] METABOLIC [id number] 16:40:09 Test Item Value Reference Range Interpretation [...] not appl icable for dialysis patien ts Blog Writer ID - BSOsmolality, [id number] 12:43:16 Test Item Value Reference Range Interpretation Comments Osmolality, Ur (test code 245 See_Comment [ Automated message] = 2695-5) The system [employer] generated this result transmitted ref erence range: 50-1,200 mOsm/kg mOsm/kg . The reference range was not used to int erpret this result as normal/abnormal . Lab Interpretation (test Normal code = 53573-1) [facility] CenterOSMOLALITY, [id number] 12:43:16 Test Item Value Reference Range Interpretation Comments OSMOLALITY URINE 245 mOsm/kg See_Comment [Automated message] (BEAKER) (test code = The sy stem which 614) generated this result transmitted ref erence range: 50-1,200 mOsm/kg. The reference range was not used to int erpret this result as normal/abnormal . Sodium, random [id number] 11:48:27 Test Item Value Reference Range Interpretation Comments Sodium Urine (test 82 meq/L code = 2955-3) SUE (test code = Reference Range: No SUE) NormalsOperator ID - ADMIN [facility] CenterUrea Nitrogen, random [id number] 11:48:27 Test Item Value Reference Range Interpretation Comments Urea Nitrogen, Ur 121 mg/dL (test code = 3095-7) SUE (test code = Reference Range: No SUE) NormalsOperator ID - ADMIN [facility]OM [id number] 11:48:27 Test Item Value Reference Range Interpretation Comments SODIUM URINE (BEAKER) (test code = 82 meq/L 243) Reference Range: No NormalsOperator ID - ADMINUREA NITROGEN, RANDOM URINE 2022-08-10 11:48:27 Test Item Value Reference Range Interpretation Comments UREA NITROGEN URINE (BEAKER) (test 121 mg/dL code = 538) Reference Range: No NormalsOperator ID - ADMINCreatinine, random [id number] 11:48:26 Test Item Value Reference Range Interpretation Comments Creatinine, Ur 20.9 mg/dL (test code = 2161-8) SUE (test code = Reference Range: No SUE) NormalsOperator ID - ADMIN [facility] CenterCREATININE, RANDOM [id number] 11:48:26 Test Item Value Reference Range Interpretation Comments CREATININE URINE (BEAKER) (test 20.9 mg/dL code = 375) Reference Range: No NormalsOperator ID - ADMINWound culture + gram stain 2022-08-10 11:24:49 Test Item Value Reference Range Interpretation Comments Result (test code = No growth 6463-4) Gram Stain Result <1+ gram positive cocci (test code = 1123) in pairs [facility] CenterWOUND CULTURE + GRAM [id number] 11:24:49 Test Item Value Reference Range Interpretation Comments CULTURE (BEAKER) (test No growth code = 1095) GRAM STAIN RESULT 4+ WBCs (BEAKER) (test code = 1123) GRAM STAIN RESULT <1+ gram positive cocci (BEAKER) (test code = in pairs 10031) T4, [id number] 11:12:44 Test Item Value Reference Range Interpretation Comments FREE T4 (BEAKER) (test code = 655) 1.25 ng/dL 0.70-1.48 Blog Writer ID - AAHAMIDOSMOLALITY, [id number] 11:11:51 Test Item Value Reference Range Interpretation Comments OSMOLALITY, SERUM (BEAKER) (test 271 mOsm/kg 275-295 L code = 615) TSH/FREE T4 IF [id number] 10:36:27 Test Item Value Reference Range Interpretation Comments THYROID STIMULATING HORMONE 10.385 uIU/mL 0.350-4.940 H (BEAKER) (test code = 772) Blog Writer ID - [id number] 10:30:32 Test Item Value Reference Range Interpretation Comments CORTISOL, TOTAL (BEAKER) (test 11.9 ug/dL 3.7-19.4 code = 2755) Blog Writer ID - AAJA, DRAINAGE, SOFT TISSUE FLUID [id number] 09:56:00Reason for exam:->tubo-ovarian abscess [facility] : 1975 Sex: [...] left lower quadrant fluid collection. Signed: Nilo Whitesideort Verified Date/Time: 08/10/2022 09:56:28 Reading Location: [address] Neuro Reading Room BASIC METABOLIC [id number] 06:16:41 Test Item Value Reference Range Interpretation [...] not appl icable for dialysis patien ts Blog Writer ID - ADMINSpecimen slightly iaytpydCRZGQHJKP4625-20-43 06:16:41 Test Item Value Reference Range Interpretation Comments MAGNESIUM (BEAKER) 1.9 mg/dL 1.6-2.6 Specimen slightly (test code = 627) hemolyzed Blog Writer ID - ADMINCBC (HEMOGRAM ONLY)2022-08-10 05:54:45 Test [...] 0-0 CELLS (BEAKER) (test code = 413) [id number] 04:19:50 Test Item Value Reference Range Interpretation Comments MAGNESIUM (BEAKER) (test code = 1.3 mg/dL 1.6-2.6 L 627) Blog Writer ID - MMBASIC METABOLIC [id number] 04:19:50 Test Item Value Reference Range Interpretation [...] not appl icable for dialysis patien ts Blog Writer ID - MMSpecimen slightly ictericCBC (HEMOGRAM ONLY)2022-08-09 [...] (BEAKER) (test code = 413) BASIC METABOLIC [id number] 06:27:34 Test Item Value Reference Range Interpretation [...] not appl icable for dialysis patien ts Blog Writer ID - DAMIÁN WSpecimen slightly ictericB-TYPE NATRIURETIC FACTOR (BNP) 2022-08-08 05:56:50 Test Item Value Reference Range Interpretation Comments B-TYPE NATRIURETIC PEPTIDE (BEAKER) 202 pg/mL 0-100 H (test code = 700) Blog Writer ID - BSCBC (HEMOGRAM ONLY)2022-08-08 05:36:13 Test [...] (BEAKER) (test code = 413) BASIC METABOLIC [id number] 05:39:11 Test Item Value Reference Range Interpretation [...] not appl icable for dialysis patien ts Blog Writer ID - ADMINSpecimen slightly ictericCBC (HEMOGRAM ONLY)2022-08-07 [...] 0-0 (BEAKER) (test code = 413) CT, [id number] 07:32:00Unlisted Reason for Exam - Click Yes and Enter Reason Below->NoProtocol Please Specify:->Standard ProtocolWill this procedure require oral contrast?->No [facility] : 1975 Sex: [...] MDReport Verified Date/Time: 08/06/2022 07:32:46 Reading Location: [facility] Diagnostic Imaging Reading Room - [place] [address] Pregnancy Screen, urine 2022-08-05 21:59:05 Test Item Value Reference Range Interpretation Comments Preg Test, Ur (test code = 2112-1) Negative Negative Lab Interpretation (test code = Normal 04183-4) [facility], [id number] 21:59:05 Test Item Value Reference Range Interpretation [...] CONCENTRATION Adequate (CELLAVISION)(BEAKER) (test code = 3438) Blog Writer ID - Salena comments: Slide comments:BASIC METABOLIC [...] not appl icable for dialysis patien ts Blog Writer ID - ADMINSpecimen slightly ictericPROTHROMBIN TIME/[id number] 21:25:45 Test Item Value Reference Range Interpretation [...] mechanical heart valves.CBC W/PLT COUNT & AUTO [id number] 21:20:49 Test Item Value Reference Range Interpretation [...] (BEAKER) (test code = 413) Transthoracic echo qfskmc6939-20-00 16:18:18Ejection FractionSLEH ECHO HEARTLAB MKCKESSON [facility] CenterBAS[facility]IC [id number] 05:26:56 Test Item Value Reference Range Interpretation [...] not appl icable for dialysis patien ts Blog Writer ID - MMSpecimen slightly ictericCBC (HEMOGRAM ONLY)2022-08-03 [...] CONCENTRATION Decreased (CELLAVISION)(BEAKER) (test code = 3438) Blog Writer ID - Salena comments: Slide comments:CBC W/PLT COUNT & AUTO [id number] 14:52:12 Test Item Value Reference Range Interpretation [...] (BEAKER) (test code = 413) BASIC METABOLIC [id number] 13:40:34 Test Item Value Reference Range Interpretation [...] not appl icable for dialysis patien ts Blog Writer ID - ADMINSpecimen moderately ictericMYOCARD IMAGING, MULTI, PHARM, [id number] 15:12:00Unlisted Reason for Exam - Click Yes and Enter Reason Below->[facility] : 1975 Sex: FFINAL REPORT PROCEDURE: MYOCARDIAL PERFUSION SPECT IMAGING (Rest/Stress)CPT CODE: 48557 INDICATION: Cardiac screening, high CAD risk CARDIOVASCULAR [...] . "The A1c is measured using a [facility]-certified method. HbA1c value equal to or greater than 6.5% as thediagnosis cutoff for diabetes. An HbA1c value of 5.7- 6.4% indicates increased risk for diabetes (prediabetes)."Blog Writer ID - ADM (CELLAVISION MANUAL DIFF)2022-08-01 08:26:35 [...] CONCENTRATION Decreased (CELLAVISION)(BEAKER) (test code = 3438) Blog Writer ID - Remy Carrerao-onUser comments: Slide comments:CBC W/PLT COUNT & AUTO SPLEMSMHIBFC2310-16-84 08:26:34 Test Item Value Reference Range Interpretation [...] (BEAKER) (test code = 413) HCG, QUANTITATIVE, [id number] 05:48:18 Test Item Value Reference Range Interpretation Comments GONADOTROPIN, CHORIONIC (HCG) QUANT < mIU/mL 0-10 (BEAKER) (test code = 649) Non- Females: <10 mIU/mL Females: Gestation Age Reference Range(mIU/mL) 0.2-1 Week 5-50 1-2 Weeks 50-500 2-3 Weeks 100-5,000 3-4 Weeks 500-10,000 4-5 Weeks 1,000-50,000 5-6 Weeks 10,000-100,000 6-8 Weeks 15,000- 200,000 2-3 Months 10,000-100,000 Blog Writer ID - FLASHBASI METABOLIC PANEL 2022-08-01 05:41:39 [...] not appl icable for dialysis patien ts Blog Writer ID - DAMIÁN WSpecimen moderately gkyrmryBENYWNVRR9760-08-61 05:41:38 Test Item Value Reference Range Interpretation Comments MAGNESIUM (BEAKER) (test code = 1.7 mg/dL 1.6-2.6 627) Blog Writer ID - DAMIÁN TLDGCLEHZYV2432-49-78 05:41:38 Test Item Value Reference Range Interpretation Comments PHOSPHORUS (BEAKER) (test code = 3.0 mg/dL 2.3-4.7 604) Blog Writer ID Gisele STEEL WPT/CMDB2312-71-54 05:39:59 Test Item Value Reference Range Interpretation [...] 2.5-3.5 for patients with mechanical heart valves.LIPID [id number] 22:24:08 Test Item Value Reference Range Interpretation [...] Borderline 130-159 High 160-189 Very High >=190 Blog Writer ID - MUEZTM160Kkhepmpz ID - QQZBSP285Qvblwhrv ID - DXPJTM216Gzjbmvrn slightly icteric U/S, ENDOVAGINAL (EV)2022-07-31 14:38:00Reason for exam:->concern for [facility] : 1975 [...] follow-up imaging with ultrasound. Signed: Shauna Duran MDRepsouthpo[facility] Verified Date/Time: 07/31/2022 14:38:44 U/S, [id number] 14:38:00Reason for exam:->concern for [facility] IV[facility]HA Irineo : 1975 Sex: FFINAL REPORT [...] follow-up imaging with ultrasound. Signed: Shauna Duran MDRthe [facility] Verified Date/Time: 07/31/2022 14:38:44 U/S, DUPLEX, [id number] 14:38:00 [facility] : 1975 Sex: FFINAL [...] follow-up imaging with ultrasound. Signed: Shauna Duran [facility]the [facility] Verified Date/Time: 07/31/2022 14:38:44 CBC W/PLT COUNT & AUTO [id number] 03:57:39 Test Item Value Reference Range Interpretation [...] H PERCENT (BEAKER) (test code = 2801) [id number] 03:56:52 Test Item Value Reference Range Interpretation Comments MAGNESIUM (BEAKER) (test code = 1.5 mg/dL 1.5-3.0 627) Blog Writer ID - NAIL29Tqhdbetk ID - EGFI54Kxvxvoru ID - SVCZ47Hthmibnm ID - ZNMP04 BASIC METABOLIC TVILM2682-17-54 03:55:31 Test Item Value Reference Range Interpretation [...] not appl icable for dialysis patien ts Blog Writer ID - OWYB70Lamtobki ID - USQA24Exnolwbf ID - QBUN47Dtooadcz ID - LYZH49Gvwmjnwz ID - ZJRN61Rinkkckx ID - NELW36Fzzyzzys ID - RZAO27Mhtlkflo ID - LFZL76Ezfeqcne ID - VISH97Aodjzgdl slightly zalrbgaLZZNZGYVWE1715-61-00 03:54:07 Test Item Value Reference Range Interpretation Comments PHOSPHORUS (BEAKER) (test code = 4.0 mg/dL 2.5-4.5 604) Blog Writer ID - [id number] 18:37:08 Test Item Value Reference Range Interpretation Comments MAGNESIUM (BEAKER) (test code = 1.6 mg/dL 1.5-3.0 627) Blog Writer ID - HOFVG267Gitmlxmy ID - DYKFV279Xlfioazo ID - ZGMBQ950Gbkvqohc ID - RZQGU439MME, CHEST, 1 VIEW, NON WFSU8060-27-76 16:51:00Reason for exam:->SOB, wheezingShould this be performed at the bedside?->Yes [facility] : 1975 Sex: [...] MDReport Verified Date/Time: 07/30/2022 16:51:52 Reading [facility] Radiology Reading Room BASI METABOLIC PANEL [...] not appl icable for dialysis patien ts Blog Writer ID - FKPCN990Zeddirks ID - JROMM187Phwmlacb ID - USCUI337Pkhggomq ID - DNLQF928Xgleqyhi ID - RLOPB832Ntvayngl ID - OKKAP927Bbagjztb ID - NXWMI477Thyszgke ID - KJABF494Vvlhjiqx ID - NKJWP195Wudqrjsf ID - JVVKT480Nsfrtxwj ID - OBPBT366Zwjuflvb ID - BEGMY272JZHXETXHFDR TIME/INR 2022-07-30 16:00:01 Test Item Value Reference [...] mechanical heart valves.CBC W/PLT COUNT & AUTO [id number] 15:52:31 Test Item Value Reference Range Interpretation [...] PERCENT (BEAKER) (test code = 2801) TISSUE [id number] 12:09:00Surgical Pathology Report Case: [id number] Authorizing Provider: Trudy James MD Collected: 02/17/2019 1126 Ordering Location: [address] Received: 02/17/2019 1147 Service Pathologist: Angela Beach MD Specimen: Gallbladder A. GALLBLADDER, CHOLECYSTECTOMY: - CHRONIC CHOLECYSTITIS WITHCHOLELITHIASIS. Signing Pathologist Direct Phone Line: [phone] signed by Angela Beach MD on 02/19/2019 at 12:09 [id number] renal mass Gallbladder Received in formalin labeled [...] trabeculated. The wall measures 0.2 cm thick. Body Coverer sections are submitted in A1-A2, with the inked proximalmargin is A1. PA/ew Performed.[facility], Department of Pathology, [address] [place] [address], [facility], Department of Pathology, [address] [place] [address], YkxegwBakersfield Memorial Hospital, Department of Pathology, [address] [place] [address], FHL W/PLT COUNT & AUTO [id number] 07:03:00 Test Item Value Reference Range Interpretation [...] (BEAKER) (test code = 2801) BASIC METABOLIC [id number] 06:57:00 Test Item Value Reference Range Interpretation [...] APPLICABLE FOR DIALYSIS PATIEN TS. HEPATIC FUNCTION [id number] 06:57:00 Test Item Value Reference Range Interpretation [...] (test code = 347) hemolyzed HEPATIC FUNCTION [id number] 06:57:00 Test Item Value Reference Range Interpretation [...] 72 U/L 6-55 H 347) BASIC METABOLIC [id number] 06:57:00 Test Item Value Reference Range Interpretation [...] PATIEN TS. CBC W/PLT COUNT & AUTO [id number] 06:28:00 Test Item Value Reference Range Interpretation [...] PERCENT (BEAKER) (test code = 2801) SCREEN, [id number] 07:28:00 Test Item Value Reference Range Interpretation Comments TEST URINE (BEAKER) (test Negative code = 583) [id number] 07:28:00 Test Item Value Reference Range Interpretation Comments MAGNESIUM (BEAKER) 2.0 mg/dL 1.6-2.6 Specimen moderately (test code = 627) hemolyzed JRLCMREWKC7088-60-05 07:28:00 Test Item Value Reference Range Interpretation Comments PHOSPHORUS (BEAKER) 4.0 mg/dL 2.3-4.7 Specimen moderately (test code = 604) hemolyzed BASIC METABOLIC [id number] 07:28:00 Test Item Value Reference Range Interpretation [...] APPLICABLE FOR DIALYSIS PATIEN TS. HEPATIC FUNCTION [id number] 07:28:00 Test Item Value Reference Range Interpretation [...] Specimen moderately (test code = 347) hemolyzed [id number] 07:28:00 Test Item Value Reference Range Interpretation Comments LIPASE (BEAKER) (test code = 749) 31 U/L 8-78 CBC W/PLT COUNT & AUTO [id number] 07:10:00 Test Item Value Reference Range Interpretation [...] (BEAKER) (test code = 2801) U/S, ABDOMINAL, [id number] 23:50:00Abdomen limited area? Add comment if clarification [...] Date/Time: 02/15/2019 23:50:53 URINALYSIS W/ REFLEX URINE [id number] 22:43:00 Test Item Value Reference Range Interpretation [...] SOURCE(BEAKER) (test code = 2795) HEPATIC FUNCTION [id number] 17:03:00 Test Item Value Reference Range Interpretation [...] Specimen slightly (test code = 347) hemolyzed SCRRRPQGC7739-07-78 16:00:00 Test Item Value Reference Range Interpretation Comments MAGNESIUM (BEAKER) 2.1 mg/dL 1.6-2.6 Specimen slightly (test code = 627) hemolyzed BASIC METABOLIC [id number] 16:00:00 Test Item Value Reference Range Interpretation [...] hemolyz ed (test code = 364) PROTHROMBIN TIME/[id number] 15:31:00 Test Item Value Reference Range Interpretation [...] is 2.5-3.5 for patients wiht mechanical heart valves.[id number] 15:31:00 Test Item Value Reference Range Interpretation Comments PARTIAL THROMBOPLASTIN TIME 31.4 seconds 22.5-36.0 (BEAKER) (test code = 760) CBC W/PLT COUNT & AUTO [id number] 15:14:00 Test Item Value Reference Range Interpretation [...] Consult Notes Date/Time Note Provider Source 2022-11-28 6439-52-45J99:23:09Associated Patrick Wallace OT [facility] 10:23:09 Order(s): CONSULT ADULT OCCUPATIONAL THERAPY OT GENERAL EVALUATIONConsult received via [employer], EMR reviewed and evaluation completed 11/28/22. Patient [...] and verbalizes understanding of teaching provided.Patrick Wallace OTRUniSt. Luke's [facility] of Rehabilitation ServicesTotal Timed Treatment [...] to enable patient to complete evaluation component. 76081-5Rjtjiqq vivhXT0793-42-77D95:15:28Consult noteTXT1.2.840.678465.1.13.104.2.7.2 .332779|[id number] for patient ckxe83566-6Yszvnec [id number] C Lawas [id number] SNDPHOCRITEYEHHAPGOKJK9357-10-82N03: 15:281.2.840.855255.1.72.3.15|1.2.84 0.260695.1.13.104.2.7.2.727879_18983 73104 2022-11-28 5215-18-30Q28:45:00Associated Savanna Larry [facility] 09:45:00 Order(s): CONSULT ADULT PHYSICAL THERAPY [...] on medications) presenting as a transfer from [facility] for NSTEMI. Troponin peaked at 1.34 and [...] on medications) presenting as a transfer from [facility] for NSTEMI. Troponin peaked at 1.34 and [...] a SS house, and sisterDME: Wheel Chair w9Svbdn level of Mobility: requires assistance with transfers, [...] denies pain before and after sessionCOMMUNICATIONPrimary Language: Algerian Able to Verbalize needs: Yes Vision:good; no [...] 31 minTotal Treatment Time in Minutes: 33 minPagarrya ENRIQUETA Juarez, DPTUnAdventHealthRehabilitation Services A physical therapy evaluation of high [...] clinical presentation with unstable and unpredictable characteristics 86120-5Hppqfzz cnrrIT5951-61-49U16:53:18Consult noteTXT1.2.840.774203.1.13.104.2.7.2 .798099|[id number] for patient ktwt10262-7Jrcueta tvioUS132495993Fgjsnl Pallera [address] Wb[id number] UGCFAMQKANCZVMPHJIITLA6317-36-50Y90: 53:181.2.840.363997.1.72.3.15|1.2.84 0.311071.1.13.104.2.7.2.727879_18983 55250 2022-11-25 7561-46-02H27:49:18Associated PN-NEUROLOGY [facility] 18:49:18 Order(s): CONSULT NEUROLOGY STROKE SERVICE [...] at 11/25/22 1829 600 Units/hr at 11/25/22 1829 ipratropium-albuteroL (DUONEB) 0.5 mg-3 mg(2.5 mg base)/3 [...] with Dr. Rivera, Neurology Faculty Stroke pager: [phone] Shahnaz Borges, MDPGY-4, NeurologyPager: [phone] signed by Romaine Rivera MD at 11/26/2022 [...] reported) and/or communicating results to the patient/family/caregiver. 76103-1Expvibd bolrPG1436829Kgwipiaw, Hashem1.2.840.121581.1.13.104.2.7.2. 768646XbyojqtfYhkuuhAB1766-51-94I47: 21:11Consult noteTXT1.2.840.184630.1.13.104.2.7.2 .012656|[id number] for patient fzya88136-8Wscblrd ybldRUDK-HMRSZIQCTBT-XLWKFMRYBXOIPFB [address] ReynLtk[id number] KQDPSITCEJVZKEPZNCDIWM0563-96-45Q19: 21:111.2.840.717211.1.72.3.15|1.2.84 0.575341.1.13.104.2.7.2.727879_18956 55747 2022-11-25 3230-62-54Q54:00:00Associated Analy Caceres [facility] 18:00:00 Order(s): CONSULT PS PASTORAL Filippo CARE Retail Administrative Assistant visited with patient in response to consult for pastoral care and support. Patient was awake and acknowledged sewing machine tester's presence. Pt was alone in room. The Pt said she was of Hindu nicole. The PT. Expressed to the Retail Administrative Assistant of some fear,about her upcomming surgery that going to be done on her heart.Pt asked the Retail Administrative Assistant to pray for her and for God to give her peace. The Retail Administrative Assistant provided spiritual support through prayer of healing, peace and comfort. Retail Administrative Assistant provided pastoral presence, and validated feelings. Pastoral care will continue to follow up as needed. Rev.Analy Ferro [facility] Department of Pastoral CarePh: [phone]: [phone] 38994-0Wiyyngz xczfCQ9866-50-03G34:31:33Consult noteTXT1.2.840.124515.1.13.104.2.7.2 .281500|[id number] for patient qgca44395-8Yqrhllp tpxbHE360691678Mmszxlc M [id number] AOICXQWUUYARTMNEQPCFJG9492-51-89G73: 31:331.2.840.532680.1.72.3.15|1.2.84 0.742392.1.13.104.2.7.2.727879_18956 12557 2022-11-25 8027-11-18M22:53:13Associated PED-PEDIATRICS [facility] 10:53:13 Order(s): CONSULT ALLERGY ALLERGY & IMMUNOLOGY CONSULT NOTEDATE OF SERVICE: 9/10/23REASON FOR CONSULT: Aspirin allergyHPI: Patient is a [...] significant pericardial effusion, no significant valvular pathologyAPTT Ngysozb51 - 36 Seconds >150 High Panic 81 High ASSESSMENT / PLAN / RECOMMENDATIONS:Geetha Minor is a 47 year old female w/:a past medical history significant for recent hemorrhagic stroke (8/14/23; 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 - Plan also explained to via dominican translatorPatient seen with Dr. Magaña. Thank you [...] see the fellow's note for additional details. 14725-7Forwflp czcuHO2961526Xufz, Alexandra1.2.840.783715.1.13.104.2.7.2.8 15450WkxdTnqixAY6658-30-19K84:58:19C onsult noteTXT1.2.840.615675.1.13.104.2.7.2 .462988|4044618151MGRebxxzjud for patient czsz35815-5Lqyrlqp sdwiIYMSG-NOMAIAFBRIZJO-MJEUSVZGYQZH MBUTMB - Health[address] [employer] XkteZoiu[id number] TACYFIFIGQTUHHUXQGOQVV0775-77-12F76: 58:191.2.840.163072.1.72.3.15|1.2.84 0.682609.1.13.104.2.7.2.727879_18954 35873 2022-11-24 8466-73-13J66:08:12Associated NS-NEUROLOGICAL [facility] 16:08:12 Order(s): CONSULT SURGERY NEUROSURGERY NEUROSURGERY [...] on medications) presenting as a transfer from [facility] for NSTEMI currently on heparin drip. Pt [...] 100% 100% Weight: Height: Awake, alert, oriented t6WCOHX bilaterally at 3mmEOMI bilaterallySlight left lower facial [...] on medications) presenting as a transfer from [facility] for NSTEMI currently on heparin drip. NSGY consulted for recs regarding heparin in light of recent hemorrhagic stroke. Pt at neurologic baseline s/p stroke.Recommendations:No neurosurgical interventionPlease consult neurology for management and recommendations of anticoagulation w/ hx of hemorrhagic strokeWill sign off at this timeChristian MD CindyNeurosurgery ServiceFor inquiries please page [phone] signed by Burton Howell MD at 11/25/2022 12:23 PM CDTAssociated attestation - Burton Howell MD - 11/25/2022 12:23 PM CDT I personally evaluated and am primary in decision making on, Geetha Minor, and I agree with the documentation by Sinan White MD,neurosurgery resident.36167-0Xhrwygg lbeeVM3289778Uvwbte, Rudy P1.2.840.408744.1.13.104.2.7.2.87490 8GoffptOgvmYLK8518-34-50G24:23:14Con [facility] noteTXT1.2.840.270161.1.13.104.2.7.2 .233567|7972558092RNShcvdkwwr for patient ohvh33122-2Zdzsnzz noteLNNS-NEUROLOGICAL SURGERYNS-NEUROLOGICAL SURGERY[id number] PXPIIFFQMWSWAFVXAAWAAW8078-07-90F17: 23:141.2.840.215381.1.72.3.15|1.2.84 0.694822.1.13.104.2.7.2.727879_18954 11820 History and Physical Notes Date/Time Note Provider Source 2022-11-24 11:33:08 9000-22-11W19:33:08Formatting of this note [facility] is different from the original.Images from the [...] on medications) presenting as a transfer from [facility] for NSTEMI. On my interview, patient reports [...] for amphetamines during her recent hospitalization.Workup at [facility] showed ST depression and TWI in [...] 454 ms QTC Calculation(Bazett) 460 ms P [place] 19 degrees R [place] 64 degrees T [place] 254 degrees Normal sinus rhythm Possible Left [...] sedated at [facility]SH prior to transfer to [facility], extubated on 10/30, required nicardipine gtt [...] develop- Sedation/Analgesia: NoneRespCOPDHx tobacco abuse- DuoNebs prn- Y2OQPibezerqueukomPEATANSrwsr painReported CAD HFpEFBradycardiaHTNHLDPatient presenting as a transfer [facility] with NSTEMI. Troponin elevated here on [...] of volume status- CXR- Will need [facility] this admission- Continue Plavix (allergic to [...] prophylaxis: heparinLines/Catheters:Peripheral IV 11/24/22 Right Antecubital Inserted UTILITIES SERVICE INVESTIGATOR (Active) Number of days: 0 Dispo: CCUPrognosis: GuardedCode Status: FullJoel Willis, CHANTALEGY-3, Department of Internal Medicine ssociated [...] ordering referrals and/or communicating with other health hospice care consultant (when not separately reported), documenting clinical information in the electronic or other health record, and care coordination (not separately reported).- hemodynamically stable- Neurosurgery consult for systemic AC / DAPT in the future, given h/o ICH- allergy consult for ASA desensitizationJOSE Cierra GONZALEZ MD, [facility], [facility], [facility] SYSTEMAAssistant ProfessorCardiology, Advanced Heart Failure, LVAD & Transplant ServiceDate of service: [id number] and physical ppdmXS0097693Zdddpbkycs-Jiucvevh, Jose C1.2.840.528641.1.13.104.2.7.2.814024Gqrrg vszwm-HykzqintZqenRGI4040-58-10T15:30:41Hi story and physical noteTXT1.2.840.606948.1.13.104.2.7.2.17141 9|[id number] for patient wwzp76377-9Mgfogfj and physical noteLNUTMB[address] SbnpM[id number] KIIJZDKBBXJEXKLT0791-20-65Z82:30:411.2.840 .498616.1.72.3.15|1.2.840.715464.1.13.104. 2.7.2.727879_1895394769
[2023-01-12 19:33] LABS: Absolute Lymphocytes (CBC) 1.6 K/uL (0.7-4.9); Hematocrit 37.3 % (36.0-45.0); Lymphocytes % 22.3 % (15.3-44.8); MCV 93.3 fL (80-100); MPV 7.2 fL (7.6-11.3); Platelets 282 thou/uL (152-406); RBC Red Blood Cell Count 3.99 M/uL (3.86-4.86)
--- NOTE | 2023-01-12 19:43 | RAD REPORT ---
EXAM DESCRIPTION: RAD - Chest Single View - 01/12/2023 7:31 pm CLINICAL HISTORY: CHEST PAIN COMPARISON: Chest Single View dated 01/08/2023; Chest Single View dated 01/03/2023; Chest Single Vie w dated 12/26/2022; Chest Single View dated 12/23/2022 FINDINGS: Lines: None. Lungs: No evidence of edema or pneumonia. Pleural: No significant pleural effusions or pneumothorax. Cardiac: The heart size is within normal limits. Mediastinum: Within normal limits. Bones: No acute fractures. Other: None IMPRESSION: No acute cardiopulmonary disease.
[2023-01-12 19:46] LABS: Protime INR 1.04
[2023-01-12 20:02] LABS: Bilirubin Direct 0.3 mg/dL (0-0.2); Bilirubin Indirect, Calculated 0.4 mg/dL (0.2-0.8); Bilirubin Total 0.7 mg/dL (0.2-1.0); Magnesium 1.5 mg/dL (1.6-2.4); Potassium 3.5 mEq/L (3.5-5.1); Protein, Total 7.7 g/dL (6.4-8.2)
[2023-01-12 20:10] LABS: Troponin High Sensitivity 60.7 pg/mL (<58.9)
--- NOTE | 2023-01-12 20:14 | EDPHYS ---
Physician Documentation [facility] Name: Geetha Khan Age: 47 yrs Sex: Female : 1975 Arrival Date: 01/12/2023 Time: 17:55 Bed 6 Private MD: ED Physician Russell Rodriguez HPI: 01/12 19:34 This 47 yrs old Female presents to ER via Ambulatory with complaints of Chest Pain. sb4 19:34 The patient or guardian reports chest pain that is located primarily in the substernal sb4 area. Onset: just prior to arrival. The pain does not radiate. Associated signs and symptoms:. Associated signs and symptoms: Pertinent positives: palpitations, shortness of breath, Pertinent negatives: headache, nausea, near syncope. The chest pain is described as "feels like palpitations". Modifying factors: The symptoms are alleviated by nothing. the symptoms are aggravated by nothing. The patient has experienced similar episodes in the past, multiple times. The patient has been recently been admitted at [facility], was discharged earlier this week. Historical: - Allergies: 18:43 Aspirin; hb 18:43 CRANBERRY; hb 18:43 FISH PRODUCT DERIVATIVES; hb 18:43 GRAPEFRUIT; hb 18:43 mushrooms; hb - PMHx: 18:43 Asthma; Cerebrovascular accident; COPD; CVA; Left sided deficits.; Hypertension; hb Myocardial infarction; Seizures; Thyroid problem; - Immunization history:: Adult Immunizations up to date. - Social history:: Smoking status: Patient denies any tobacco usage or history of. ROS: 19:34 Constitutional: Negative for fever, chills, and weight loss, sb4 19:34 Cardiovascular: Positive for chest pain, 19:34 All other systems are negative, Exam: 19:34 Constitutional: This is a well developed, well nourished patient who is awake, alert, sb4 and in no acute distress. Head/Face: Normocephalic, atraumatic. Eyes: Extra-ocular motions intact. Periorbital areas with no swelling, redness, or edema. ENT: Mucous membranes moist. Respiratory: Lungs have equal breath sounds bilaterally, clear to auscultation and percussion. No rales, rhonchi or wheezes noted. No increased work of breathing, no retractions or nasal flaring. Abdomen/GI: Soft, non-tender, no distension. Skin: Warm, dry with normal turgor. Normal color with no rashes, no lesions, and no evidence of cellulitis. MS/ Extremity: Pulses equal, no cyanosis. Neurovascular intact. Full, normal range of motion. 19:34 Cardiovascular: Rate: tachycardic, Rhythm: regular, Pulses: no pulse deficits are appreciated, Heart sounds: normal, Edema: is not appreciated, Vital Signs: 18:20 BP 148 / 102; Pulse 106; Resp 16; Temp 98.1; Pulse Ox 100% on R/A; Weight 63.5 kg; hb Height 5 ft. 2 in. ; Pain 10/10; 19:26 BP 131 / 93; Pulse 87; Resp 18 S; Pulse Ox 100% on R/A; lg3 20:39 BP 126 / 91; Pulse 90; Resp 17 S; Pulse Ox 99% on R/A; lg3 18:20 Body Mass Index 25.61 (63.50 kg, 157.48 cm) hb 18:20 Pain Scale: Adult hb MDM: 18:51 Patient medically screened. sb4 19:34 Differential diagnosis: acute myocardial infarction, anxiety, coronary artery disease sb4 costochondritis, esophagitis, gastritis, pleurisy, pneumonia, stable angina, unstable angina. 01/13 08:42 Data reviewed: vital signs, nurses notes, lab test result(s), EKG, radiologic studies, sb4 and as a result, I will discharge patient. Consideration of Admission/Observation Escalation of care including admission/observation considered. Management of patient was discussed with the following: Hospitalist: Dr. Medrano- patient has been admitted several times for chest pain. she had a negative cardiac catheterization 1 month ago. cardiology has stated that they will not cath her again unless there is a significant change. hospitalist does not believe patient needs to be admitted, she is safe for dc home with outpatient cardiology follow up. Counseling: I had a detailed discussion with the patient and/or guardian regarding the historical points, exam findings, and any diagnostic results supporting the discharge/admit diagnosis, the presence of at least one elevated blood pressure reading (>120/80) during this emergency department visit, lab results, radiology results, the need for outpatient follow up, a ore grader, to return to the emergency department if symptoms worsen or persist or if there are any questions or concerns that arise at home, smoking cessation. Special discussion: Based on the patient's history, exam, and Dx evaluation, there is no indication for emergent intervention or inpatient Tx. It is understood by the patient/guardian that if the Sx's persist or worsen they need to return immediately for re-evaluation. 01/12 18:48 Order name: Basic Metabolic Panel; Complete Time: 20:10 sb4 01/12 18:48 Order name: CBC with Diff; Complete Time: 19:37 sb4 01/12 18:48 Order name: LFT's; Complete Time: 20:10 sb4 01/12 18:48 Order name: Magnesium; Complete Time: 20:10 sb4 01/12 18:48 Order name: NT PRO-BNP; Complete Time: 20:10 sb4 01/12 18:48 Order name: PT-INR; Complete Time: 19:46 sb4 01/12 18:48 Order name: Troponin HS; Complete Time: 20:10 sb4 01/12 18:48 Order name: XRAY Chest (1 view); Complete Time: 19:44 sb4 01/12 18:48 Order name: EKG; Complete Time: 18:49 sb4 01/12 18:48 Order name: Cardiac monitoring; Complete Time: 19:24 sb4 01/12 18:48 Order name: EKG - Nurse/Tech; Complete Time: 19:12 sb4 01/12 18:48 Order name: Labs collected and sent; Complete Time: 19:24 sb4 01/12 18:48 Order name: O2 Per Protocol; Complete Time: 19:24 sb4 01/12 18:48 Order name: O2 Sat Monitoring; Complete Time: 19:24 sb4 EC/28 19:27 Rate is 108 beats/min. Rhythm is regular, Sinus tachycardia. FL interval is normal at sb4 174 msec. QRS interval is normal at 90 msec. QT interval is normal at 471 msec. Clinical impression: LVH, Sinus tachycardia, and No evidence of ischemia. Administered Medications: 20:06 Drug: Acetaminophen PO 1000 mg PO once Route: PO; km8 20:40 Follow up: Response: No adverse reaction lg3 20:08 Not Given (no iv access; ok not to give per GOMEZ Santos): [id number] mg IVP once; km8 dilute with 10 mL 0.9% NaCl; give over 2 minutes Disposition Summary: 01/12/23 20:13 Discharge Ordered Notes: Location: Home sb4 Problem: an ongoing problem sb4 Symptoms: are unchanged sb4 Condition: Stable sb4 Diagnosis - Chest pain, unspecified sb4 Followup: sb4 - With: Emergency Department - When: As needed - Reason: Trouble breathing, Worsening of condition Forms: - Medication Reconciliation Form sb4 - Thank You Letter sb4 - Antibiotic Education sb4 - Prescription Opioid Use sb4 - Patient Portal Instructions sb4 - Leadership Thank You Letter sb4 Addendum: 01/14/2023 10:59 I was immediately available for consultation during this patient's visit. I did not e c2 personally see the patient or guide the patient's care. Signatures: Dispatcher [employer] Kristin Gaona, RN RN Kalli Boyd, RENEA PAHermes sb4 Russell Rodriguez MD MD ec2 Mary Coker RN RN km8 Lauren Madera RN lg3 Corrections: (The following items were deleted from the chart) 01/12 20:40 18:48 IV Saline Lock ordered. sb4 lg3
--- NOTE | 2023-01-12 20:14 | ER ---
Nurse's Notes [facility] Name: Geetha Khan Age: 47 yrs Sex: Female : 1975 Arrival Date: 01/12/2023 Time: 17:55 Bed 6 Private MD: Diagnosis: Chest pain, unspecified Presentation: 01/12 18:00 Chief complaint: EMS states: Chest pain and SOB x 2 hours. VS WNL, NSR on 12 lead. hb Coronavirus screen: At this time, the client does not indicate any symptoms associated with coronavirus-19. Ebola Screen: No symptoms or risks identified at this time. Initial Sepsis Screen: Does the patient meet any 2 criteria? No. Patient's initial sepsis screen is negative. Does the patient have a suspected source of infection? No. Patient's initial sepsis screen is negative. Risk Assessment: Do you want to hurt yourself or someone else? Patient reports no desire to harm self or others. Onset of symptoms was January 12, 2023. 18:00 Method Of Arrival: Ambulatory hb 18:00 Acuity: CORRINA 3 hb Historical: - Allergies: 18:43 Aspirin; hb 18:43 CRANBERRY; hb 18:43 FISH PRODUCT DERIVATIVES; hb 18:43 GRAPEFRUIT; hb 18:43 mushrooms; hb - PMHx: 18:43 Asthma; Cerebrovascular accident; COPD; CVA; Left sided deficits.; Hypertension; hb Myocardial infarction; Seizures; Thyroid problem; - Immunization history:: Adult Immunizations up to date. - Social history:: Smoking status: Patient denies any tobacco usage or history of. Screenin:12 [facility] ED Fall Risk Assessment (Adult) History of falling in the last 3 months, lg3 including since admission No falls in past 3 months (0 pts). Abuse screen: Denies threats or abuse. Denies injuries from another. Nutritional screening: No deficits noted. Tuberculosis screening: No symptoms or risk factors identified. Assessment: 19:12 General: Appears in no apparent distress. comfortable, Behavior is calm, cooperative. lg3 Pain: Complains of pain in chest Pain does not radiate. Pain began 2 hours ago. Neuro: No deficits noted. Mullen Agitation-Sedation Scale (RASS): 0 - Alert and Calm Level of Consciousness is awake, alert, obeys commands, Oriented to person, place, time, situation. Cardiovascular: No deficits noted. Reports chest pain, Capillary refill < 3 seconds Clubbing of nail beds is absent JVD is absent Patient's skin is warm and dry. Respiratory: No deficits noted. Airway is patent Respiratory effort is even, unlabored, Respiratory pattern is regular, symmetrical. GI: No deficits noted. No signs and/or symptoms were reported involving the gastrointestinal system. : No deficits noted. No signs and/or symptoms were reported regarding the genitourinary system. EENT: No deficits noted. No signs and/or symptoms were reported regarding the EENT system. Derm: No deficits noted. No signs and/or symptoms reported regarding the dermatologic system. Skin is intact, is healthy with good turgor, Skin is dry, Skin is normal, Skin temperature is warm. Musculoskeletal: No signs and/or symptoms reported regarding the musculoskeletal system. Circulation, motion, and sensation intact. left sided deficits from previous stroke. 20:09 Reassessment: Patient appears in no apparent distress at this time. No changes from lg3 previously documented assessment. Patient and/or family updated on plan of care and expected duration. Pain level reassessed. Patient is alert, oriented x 3, equal unlabored respirations, skin warm/dry/pink. 20:40 Reassessment: Patient appears in no apparent distress at this time. No changes from lg3 previously documented assessment. Patient and/or family updated on plan of care and expected duration. Pain level reassessed. Patient is alert, oriented x 3, equal unlabored respirations, skin warm/dry/pink. Vital Signs: 18:20 BP 148 / 102; Pulse 106; Resp 16; Temp 98.1; Pulse Ox 100% on R/A; Weight 63.5 kg; hb Height 5 ft. 2 in. ; Pain 10/10; 19:26 BP 131 / 93; Pulse 87; Resp 18 S; Pulse Ox 100% on R/A; lg3 20:39 BP 126 / 91; Pulse 90; Resp 17 S; Pulse Ox 99% on R/A; lg3 18:20 Body Mass Index 25.61 (63.50 kg, 157.48 cm) hb 18:20 Pain Scale: Adult hb ED Course: 17:57 Patient arrived in ED. im 17:57 Kalli Bradshaw PA-C is PHCP. sb4 17:57 Russell Rodriguez MD is Attending Physician. sb4 18:43 Triage completed. hb 18:43 Arm band placed on. hb 19:11 Lauren Madera, RN is Primary Nurse. lg3 19:12 Patient has correct armband on for positive identification. Placed in gown. Bed in low lg3 position. Call light in reach. Side rails up X 1. Client placed on continuous cardiac and pulse oximetry monitoring. NIBP monitoring applied. air duct mechanic on. Door closed. Noise minimized. Warm blanket given. 19:12 Patient maintains SpO2 saturation greater than 95% on room air. lg3 19:33 XRAY Chest (1 view) In Process Unspecified. EDMS 20:40 No provider procedures requiring assistance completed. Patient did not have IV access lg3 during this emergency room visit. Administered Medications: 20:06 Drug: Acetaminophen PO 1000 mg PO once Route: PO; km8 20:40 Follow up: Response: No adverse reaction lg3 20:08 Not Given (no iv access; ok not to give per GOMEZ Santos): [id number] mg IVP once; km8 dilute with 10 mL 0.9% NaCl; give over 2 minutes Medication: 20:41 VIS not applicable for this client. lg3 Outcome: 20:13 Discharge ordered by MD. sb4 20:40 Discharged to home via wheelchair, with family, lg3 20:40 Condition: stable 20:40 Discharge instructions given to patient, 20:40 Instructed on discharge instructions, follow up and referral plans. Demonstrated understanding of instructions, follow-up care, 20:50 Patient left the ED. lg3 Signatures: Dispatcher [employer] EDSD Kristin Barrera RN RN Lauren Madera, RN YANETH lg3 Kalli Bradshaw, PA-C PA-C sb4 Verna Jhaveri Katie, YANETH RN km8 Corrections: (The following items were deleted from the chart) 18:57 18:20 BP 148 / 88; Pulse 82bpm; Resp 16bpm; Pulse Ox 100% RA; Temp 98.1F; hb hb
[2023-01-12] MEDS ORDERED: FAMOTIDINE 20 MG/2 ML VIAL IV ONE (20:18)
[2023-01-12] MEDS ORDERED: ACETAMINOPHEN 500 MG TAB ONE (20:18)
[2023-01-12 21:06] VITALS: TEMP 98.1
[2023-01-12 21:08] VITALS: BP 126/91; O2SAT 99
--- NOTE | 2023-01-15 07:57 | EKG ---
Test Date: 2023-01-12 Test Time: 18:57:30 Mercerizer: HB MEASUREMENT RESULTS: Intervals: Rate: 108 NC: 174 QRSD: 90 QT: 352 QTc: 471 Morrison: P: 55 NC: 174 QRS: -16 T: 131 INTERPRETIVE STATEMENTS: Sinus tachycardia Biatrial enlargement Left ventricular hypertrophy with repolarization abnormality Abnormal ECG Compared to ECG 01/08/2023 16:28:36 Atrial abnormality now present Sinus rhythm no longer present Electronically Signed On 01-15-23 07:52:29 CDT by Josse Olson
== END 2023-01-12 20:50 | disposition home or self-care (01) ==
LOC: ER 17:55
DX: R07.9 Chest pain, unspecified (principal); R00.2 Palpitations; I10 Essential (primary) hypertension; I25.2 Old myocardial infarction; Z88.6 Allergy status to analgesic agent; Z91.013 Allergy to seafood; Z91.018 Allergy to other foods
CPT/HCPCS: 36415; 71045; 80048; 80076; 83735; 83880; 84484; 85025; 85610; 93005; 99284

== ENCOUNTER 2023-01-18 17:24 | Emergency (ER) | payer SELFPAY ==
--- OUTSIDE RECORDS SUMMARY | 2023-01-18 17:33 | XMS REPORT | Continuity of Care Document ---
:1975 Author Organization [facility] t Address [address] [facility] [address] [place] [address] Care Team Providers Name Role Phone PCP, PATIENT DOES NOT HAVE A Primary Care Physician UnavailZAHRA Stoner Attending Clinician Unavailable SUSIE TAI Attending Clinician Unavailable KATHY MAHMOOD Attending Clinician Unavailable MURRAY ELISE Attending Clinician Unavailable Desi Sotelo LVN Attending Clinician Zohaib Parsons MD Attending Clinician [phone] Ryne Yoder MD Attending Clinician Meghana Felix MD Attending Clinician RYNE YODER Attending Clinician Unavailable GOYO HANKINS Attending Clinician Unavailable DANYEL WHITESIDE Attending Clinician Unavailable Vijay Jenkins Attending Clinician Fredis ECHEVERRIA, Popeye In H Attending Clinician Aida Alcala MD Attending Clinician [phone] Yariel ECHEVERRIA, Clifton Negro Attending Clinician [phone] Debra ECHEVERRIA, Kristin Cano Attending Clinician [phone] KRISTIN SHAH Attending Clinician Unavailable Les Al MD Attending Clinician Nena Waller MD Attending Clinician Leonid Harris MD Attending Clinician CLIFTON DE LUNA Attending Clinician Unavailable DAYRON FOSTER Attending Clinician Unavailable Dayron Foster MD Attending Clinician [phone] 1 ZAIN SALAS Attending Clinician Unavailable AMANDA [...] abscess 5-21 Iqra kes 00:00: Medical 00 [place] Abdominal Abdominal Disease Recurre [facility] infection infection nce 5-16 [facility] 00:[facility]: Medical 00 Center Pelvic Pelvic Disease Active [facility] abscess in abscess in 5-15 Iqra kes female female 00:00: Medical 00 Center [...] tis tis 2-02 [facility] Medical 00 [place] Hypertensi Hypertensi Disease Recurre 2018- [facility] on on nce 04-19 [facility] 00:[facility]: Medical 00 [place] Seizure Seizure Disease Recurre 2018- [facility] disorder disorder nce 04-19 [facility] 00:00: Medical 00 [place] Anemia Anemia Disease Active 2018-[address] [facility] [facility] 00:[facility]: Medical 00 [place] Thrombocyt Thrombocyt Disease Active 2018- C HI [...] Comments Source Gender identity [facility] Sexual orientation [facility] History SDOH [facility] Alcohol Std Drinks Medica l Center History SDOH [facility] Alcohol Comment Medical C enter History SDOH [facility] Transport Non-Med Medical Center History of Social 2022-11-26 2022-11-26 Univers ity of function 00:00:00 00:00:00 [facility] Cigarettes smoked 2022-11-24 2022-11-24 Univers ity of current (pack per 00:00:00 00:00:00 ) - Reported Branch Cigarette 2022-11-24 2022-11-24 University of pack-years 00:00:00 00:00:00 [facility] Tobacco use and 2022-11-24 2022-11-24 Smokeless Universit y of exposure 00:00:00 00:00:00 tobacco non-user [facility] intake 2022-11-24 2022-11-24 Ex-drinker [facility] 00:00:00 00:00:00 (finding) [facility] History of tobacco 2022-11-03 Passive smoker Un iversity of use 00:00:00 [place] [facility] History [facility] 2022-08-06 2022-08-[address] [facility] Transport Med 00:00:00 00:00:[address] [facility] 2022-08-06 2022-08-[address] [facility] Housing Unable to 00:00:00 00:00:00 Medical Center Pay History [facility] 2022-08-06 2022-08-[address] [facility] Housing Places 00:00:00 00:00:00 Medical Ce nter Lived History [facility] 2022-08-06 2022-08-[address] [facility] Housing Homeless 00:00:00 00:00:00 Medical Center Last Year History [facility] 2019-02-15 2019-02-[address] [facility] Alcohol Binge 00:00:00 00:00:[address] History [facility] 2019-02-15 2019-02-[address] [facility] Alcohol Frequency 00:00:00 00:00:00 Medical Center Sex Ass[birth year] At [birth year] [facility] 00:00:00 00:00:00 [facility] Smoking Status Start Date Stop Date Source Ex-smoker 2022-11-24 00:00:00 2022-11-24 [place] 00:00:00 [facility] Occasional tobacco 2022-07-30 00:00:00 [facility] smoker Center Medications Ordered Filled Start Stop Current Ordering Indication Dosage Frequency Signature Comments Components Source Medication Medication Date Date Medication? Clinician (SIG) Name Name KCL Yes 20meq 20 mEq, Univers (KLOR-CON 9-14 Oral, ity of M20) tablet 14:00: DAILY, [facility] 20 mEq 00 First dose Medical on [facility] Branch 11/29/22 at 0900, Until Discontinu ed, Routine QUEtiapine Yes 25mg Take 1 Unive rs 25 mg 9-13 tablet by ity of tablet 21:49: mouth in [place] [id number] the Medical morning Branch and 1 tablet in the evening. furosemide Yes 20mg Take 1 Unive rs (LASIX) 20 9-13 tablet by ity of mg tablet 21:49: mouth in [facility] 46 the Medical morning. Branch QUEtiapine 2022-0 Yes 25mg Take 1 Unive rs 25 mg 9-13 tablet by ity of tablet 21:49: mouth in [place] 46 the Medical morning Branch and 1 tablet in the evening. furosemide Yes 20mg Take 1 Unive rs (LASIX) 20 11-28 tablet by ity of mg tablet 21:49: mouth in [facility] 46 the Medical morning. Branch albuterol [...] ity of tablet 10:17: 00:00 mouth at [place] 14 :00 bedtime. Medical Branch amLODIPine 2022- No 10mg Take 1 Univ ers 10 mg 11-28 tablet by ity of tablet 10:12: 00:00 mouth in [place] 07 :00 the Medical morning. Branch NIFEdipine 2022- No 60mg Take 1 Univ ers ER 60 mg 11-28 tablet by ity o f tablet 10:12: 00:00 mouth in [place] 04 :00 the Medical morning. Branch metoprolol 2022- No 50mg Take 1 Univ ers tartrate 11-28 tablet by ity o f (LOPRESSOR) 10:12: 00:00 [place] in [place] 50 mg 04 :00 the Medical tablet morning Branch and 1 tablet in the evening. amLODIPine 2022-0 Yes [id number] 2.5mg Take 1 Univers 2.5 mg 11-28 tablet by ity of tablet 00:00: mouth in [place] 00 the Medical morning. Branch metoprolol 2022-0 Yes [id number] 12.5mg Take 0.5 Univers tartrate 25 9-13 tablets by it y of mg tablet 00:00: [place] the Medical morning Branch and 0.5 tablets in the evening. atorvastati Yes [id number] 40mg Take 1 Univers n 40 mg 9-13 tablet by ity of tablet 00:00: mouth at [place] 00 bedtime. Medical Branch amLODIPine Yes [id number] 2.5mg Take 1 Univers 2.5 mg 9-13 tablet by ity of tablet 00:00: mouth in [place] 00 the Medical morning. Branch metoprolol Yes [id number] 12.5mg Take 0.5 Univers tartrate 25 9-13 tablets by it y of mg tablet 00:00: [place] 00 the Medical morning Branch and 0.5 tablets in the evening. atorvastati Yes [id number] 40mg Take 1 Univers n 40 mg 9-13 tablet by ity of tablet 00:00: mouth at [place] 00 bedtime. Medical Branch HYDROcodone Yes 1{tbl} 1 tablet, Univers -acetaminop 11-27 Oral, ity of hen (NORCO 21:16: Q6HPRN, [place] 5) 5-325 mg 22 Starting Medi wale tablet 1 on [facility] tablet 11/27/22 at 1616, Until Discontinu ed, Routine, Pain (scale 4-6) acetaminoph Yes 650mg 650 mg, Un yoana en 11-27 Oral, ity of (TYLENOL) 21:12: Q6HPRN, [place] tablet 650 39 Starting Medic al mg on Tue Branch 11/27/22 at 1612, Until Discontinu ed, Routine, Pain (scale 1-3) nitroglycer 2022- No [id number] .8mg 0.8 mg, Univers in 11-27 Sublingual ity of (NITROSTAT) 20:15: 19:15 , ONCE, 1 [place] sublingual 00 :00 dose, On Medic al tablet 0.8 Tue Branch mg 11/27/22 at 1515, KASSIDY iopamidol 0 2022- No [id number] 80mL 80 mL, U nivers (ISOVUE 11-27 Intravenou ity o f 370-500 mL) 20:15: 19:25 s, ONCE, 1 [place] injection 00 :00 dose, On Medica l 80 mL Tue Branch 11/27/22 at 1515, Routine acetaminoph 2022-2022- No 1{tbl} 1 tablet, Univers en-codeine 11-27 Oral, ity of (TYLENOL 11:15: 10:29 ONCE, 1 [place] #3) 300-30 00 :00 dose, On Medic al mg tablet 1 e Branch tablet 11/27/22 at 0615, Routine acetaminoph 2022-2022- No 1{tbl} 1 tablet, Univers en-codeine 11-26 Oral, ity of (TYLENOL 18:45: 18:50 ONCE, 1 [place] #3) 300-30 00 :00 dose, On Medic al mg tablet 1 [facility] tablet 11/26/22 at 1345, Routine metoprolol Yes 12.5mg 12.5 mg, U nivers tartrate 11-26 Oral, BID, ity o f (LOPRESSOR) 13:00: First dose [place] tablet 12.5 00 on Mon Medica l mg 11/26/22 at Branch 0800, Until Discontinu ed, Routine perflutren 2022- No [id number] 3mL 3 mL, IV Univers protein-A 11-25 Push, ity of microsphr 15:00: 15:00 ONCE, 1 [place] (OPTISON) 00 :00 dose, On Medica l injection 3 Sun Branch mL 11/25/22 at 1000, Routine pantoprazol Yes 40mg 40 mg, Univ ers e 11-25 Oral, ity of (PROTONIX) 14:00: DAILY, [place] EC tablet 00 First dose Medi wale 40 mg on [place] Branch 11/25/22 at 0900, Until Discontinu ed, Routine clopidogreL 2022-2022- No 75mg 75 mg, Uni vers (PLAVIX) 75 11-25 Oral, ity of mg tablet 14:00: 14:47 DAILY, [place] 75 mg 00 :08 First dose Medical on [place] Branch 11/25/22 at 0900, Until Discontinu ed, Routine magnesium 2022- No 4g 4 g, IV Univ ers sulfate in 11-25 Piggyback, it y of water 4 04:15: 07:19 at 25 [place] gram/50 mL 00 :00 mL/hr Medical (8 %) IV Administer Branc h Piggyback 4 over 120 g Minutes, ONCE, 1 dose, On [facility] 11/24/22 at 2315, Routine atorvastati 3-0 Yes 40mg 40 mg, Univ ers n (LIPITOR) 11-25 Oral, QHS, it y of tablet 40 02:00: First dose [place] mg 00 on [facility] Medical 11/24/22 at Branch 2100, Until Discontinu ed, Routine lactated 2023-0 2023- No 500mL at 999 Unive rs ringers IV 11-24 mL/hr, 500 it y of infusion 23:00: 12:43 mL, [place] 500 mL 00 :00 Intravenou Medical s, ONCE, 1 Branch dose, On [facility] 11/24/22 at 1800, Routine lactated 2023-0 2023- No 500mL at 125 Unive rs ringers IV 11-2411 mL/hr, 500 it y of infusion 21:11: 12:43 mL, [place] 500 mL 00 :00 Intravenou Medical s, ONCE, 1 Branch dose, On [facility] 11/24/22 at 1615, Routine ipratropium 2022-0 Yes 3mL 3 mL, Unive rs -albuteroL 11-24 Inhalation ity of (DUONEB) 19:48: , QIDPRN, [place] 0.5 mg-3 04 Starting Medical mg(2.5 mg on [facility] Branch base)/3 mL 11/24/22 at nebulizer 1448, solution 3 Until mL Discontinu ed, Routine, Wheezing lactated 3-0 2023- No 500mL at 999 Unive rs ringers IV 11-2411 mL/hr, 500 it y of infusion 17:45: 12:43 mL, [place] 500 mL 00 :00 Intravenou Medical s, ONCE, 1 Branch dose, On [facility] 11/24/22 at 1245, Routine nitroglycer 3-0 Yes [...] e, Dosing and Testing: &nbs p;FOR [facility] ONLY &nbs p; [...] Q.5D Take 1 [facility] tartrate -27 tablet (50 [facility] (LOPRESSOR) 00:00: mg total) [...] er tablet in the morning. atorvastati 2022-0 2022- No 40mg QD Take [address] n (LIPITOR) 5-19 05-27 tablet (40 L ukes 40 MG 00:00: 00:00 mg total) Medica l tablet 00 :00 by mouth Center nightly. metroNIDAZO 2022- No 500mg Q.[id number] Take [address] LE (FLAGYL) 08-03 05-27 [id number] tablet [facility] 500 MG 00:00: 00:00 3D (500 mg Medical tablet 00 :00 total) by Center mouth in the morning and 1 tablet (500 mg total) at noon and 1 tablet (500 mg total) in the evening. . doxycycline 2022- No 100mg Q.5D Take [address] (MONODOX) 08-03-21 capsule [facility] 100 MG 00:00: 00:00 (100 mg Medical capsule 00 :00 total) by Center mouth in the morning and 1 capsule (100 mg total) before bedtime. divalproex 2022- No epilepsy 125mg QD Take [address] (DEPAKOTE) 5-15 05-15 mg by [facility] 125 MG EC 14:52: 00:00 mouth Medica l tablet 09 :00 daily. [place] divalproex 2018-03 Yes epilepsy 125mg QD Take [address] (DEPAKOTE) 2-04 mg by [facility]ukes 125 MG EC 10:36: mouth Medical tablet 04 daily. [place] divalproex 2018-03 Yes epilepsy 125mg QD Take [address] (DEPAKOTE) 2-04 mg by [facility] 125 MG EC 10:36: mouth Medical tablet 04 daily. [place] divalproex 2018-03 Yes epilepsy 125mg QD Take [address] (DEPAKOTE) 2-04 mg by [facility]ukes 125 MG EC 10:36: mouth Medical tablet 04 daily. [place] famotidine 2018-03 Yes 1{tbl} Take 1 [facility] [...] Source Respiratory rate 2022-11-29 01:59:00 18 /min [facility] Oxygen saturation in 2022-11-29 01:59:00 93 /min [facility] Arterial blood by [facility] Pulse oximetry Branch Systolic blood 2022-11-29 01:23:00 126 mm[Hg[facility] Diastolic blood 2022-11-29 01:23:00 75 mm[Hg] [facility] Heart rate 2022-11-29 01:23:00 72 /min [facility] Body temperature 2022-11-29 01:23:00 36.94 Nahomi [facility] Body weight 2022-11-28 05:16:00 70.421 kg [...] cm Heart rate 2022-08-11 12:33:33 76 /min [facility] Respiratory rate 2022-08-11 12:33:33 18 /min [facility] Oxygen saturation in 2022-08-11 12:33:33 97 /min [facility] Arterial blood by Medical Ce nter Pulse oximetry Body temperature 2022-08-11 12:33:11 36.56 Nahomi [facility] Systolic blood 2022-08-11 12:32:45 129 mm[Hg] [facility] Diastolic blood 2022-08-11 12:32:45 80 mm[Hg] [facility] Body height 2022-08-05 19:35:00 157.5 cm [facility] Body weight 2022-08-05 19:35:00 58.968 kg [facility] BMI 2022-08-05 19:35:00 23.78 kg/m2 [facility] Procedures Procedure Date / Time Performing Clinician Source Performed MAGNESIUM 2022-11-28 09:22:00 Casi Maddox [facility] BASIC METABOLIC PANEL 2022-11-28 09:22:00 Casi Maddox [facility] (NA, K, CL, CO2, Medical Branch GLUCOSE, BUN, CREATININE, CA) CBC WITH DIFF 2022-11-28 09:22:00 Casi Maddox [facility] CT ANGIOGRAPHY 2022-11-27 19:24:21 Tori Hanna [facility] CORONARIES WITH CARDIAC [facility] CALCIUM SCORE CT HEAD WO CONTRAST 2022-11-27 17:24:05 Milagros Choe [facility] CBC WITHOUT DIFF 2022-11-27 09:15:00 Joel Willis [facility] MAGNESIUM 2022-11-26 09:21:00 Paul [facility] HEPATIC FUNCTION PANEL 2022-11-26 09:21:00 Joel Willis [facility] ([id number]) (ALB,T.PRO,BILI Medical Branch T,BU/BC,ALT,AST,ALK PHOS) BASIC METABOLIC PANEL 2022-11-26 09:21:00 [facility] (NA, K, CL, CO2, Medical Branch GLUCOSE, BUN, CREATININE, CA) CBC WITH DIFF 2022-11-26 09:[facility]:00 [facility] 2022-11-25 22:48:00 Lazaro [facility] EKG-12 LEAD 2022-11-25 17:52:00 [facility]OP[facility]IN I 2022-11-25 17:51:00 Aries [facility] HB ECG ROUTINE & RHYTHM 2022-11-25 17:39:36 Joel Willis [facility] STRIP [facility] ACTIVATED PARTIAL 2022-11-25 15:42:00 Lazaro [facility] TRANSTHORACIC ECHO (TTE) 2022-11-25 14:57:34 Joel Willis [facility] COMPLETE W/ CONTRAST Medical Bra nch MAGNESIUM 2022-11-25 09:20:00 [facility] BASIC METABOLIC PANEL 2022-11-25 09:20:00 Joel Willis [facility] (NA, K, CL, CO2, Medical Branch GLUCOSE, BUN, CREATININE, CA) URINE DRUG (IMMUNOASSAY) 2022-11-25 07:32:00 Joel Willis [facility] - COMPREHENSIVE DRUG Medical Bra [facility] SCREEN GC & CHLAMYDIA AMPLIFIED 2022-11-25 07:32:00 Joel Willis [facility] ASSAY [facility] URINE DRUG (LCMSMS) - 2022-11-25 07:32:00 Joel Willis [facility] SYNTHETIC OPIATES PANEL Medical Branch CBC WITHOUT DIFF 2022-11-25 07:31:00 Lazaro [facility] ACTIVATED PARTIAL 2022-11-25 07:31:00 Lazaro [facility] URINALYSIS 2022-11-25 07:31:00 [facility] MAGNESIUM 2022-11-25 01:31:00 [facility] BASIC METABOLIC PANEL 2022-11-25 01:31:00 [facility] (NA, K, CL, CO2, Medical Branch GLUCOSE, BUN, CREATININE, CA) ACTIVATED PARTIAL 2022-11-25 01:31:00 Lazaro [facility] TROPONIN I 2022-11-24 23:01:00 [facility] BLOOD CULTURE SCREEN 2022-11-24 22:57:00 Lazaor [facility] XR CHEST 1 VW 2022-11-24 21:30:59 [facility] US ABDOMEN LIMITED 2022-11-24 21:30:31 Joel Willis [facility] XR CHEST 1 VW 2022-11-24 20:37:[address] [facility] [facility] [address] HEAD WO CONTRAST 2022-11-24 18:42:54 Lazaro [facility] ACTIVATED PARTIAL 2022-11-24 17:43:00 Lazaro [facility] CBC WITH DIFF 2022-11-24 16:39:00 [facility] MSSA SCREEN BY 2022-11-24 16:39:00 Lazaro [facility] 2022-11-24 16:34:00 [facility] THYROID STIMULATING 2022-11-24 16:34:00 [facility] HEPATIC FUNCTION PANEL 2022-11-24 16:34:00 Lazaro [facility] ([id number]) (ALB,T.PRO,BILI Medical Branch T,BU/BC,ALT,AST,ALK PHOS) BASIC METABOLIC PANEL 2022-11-24 16:34:00 Lazaro [facility] (NA, K, CL, CO2, Medical Branch GLUCOSE, BUN, CREATININE, CA) LIPID PANEL 2022-11-24 16:34:00 Lazaro [facility] ([id number])(TOTAL Medical Branch CHOLESTEROL, TRIGLYCERIDES, HDL) GLYCOSYLATED HEMOGLOBIN 2022-11-24 16:34:00 Joel Willis [facility] (A1C) Medical Branch PROTHROMBIN TIME / INR 2022-11-24 16:34:00 Joel Willis [facility] HEPATITIS B SURFACE 2022-11-24 16:34:00 Lazaro [facility] ANTIBODY Medical Branch HEPATITIS B SURFACE 2022-11-24 16:34:00 Lazaro [facility] ANTIGEN [facility] HCV ANTIBODY 2022-11-24 16:34:00 [facility] HEPATITIS A VIRUS 2022-11-24 16:34:00 [facility] IGM [facility] N-TERMINAL PRO-BNP 2022-11-24 16:34:00 L[facility]aro [facility] HIV 1/2 AG-AB WITH 2022-11-24 16:34:00 Lazaro [facility] REFLEX [facility] EKG-12 LEAD 2022-11-24 16:22:20 [facility] BASIC METABOLIC PANEL 2022-08-11 04:41:00 Clifton De Luna [facility] MAGNESIUM 2022-08-11 04:41:00 [facility] [place] CALCIUM, IONIZED 2022-08-11 04:41:00 [facility] PHOSPHORUS 2022-08-11 04:41:00 [facility] CBC W/PLT COUNT & AUTO 2022-08-11 04:41:00 [facility] DIFFERENTIAL [place] CBC W/PLT COUNT & AUTO 2022-08-11 04:41:00 [facility] BASIC METABOLIC PANEL 2022-08-10 16:09:00 [facility] SODIUM, RANDOM URINE 2022-08-10 09:33:00 [facility] UREA NITROGEN, RANDOM 2022-08-10 09:33:00 [facility] URINE [facility] CREATININE, RANDOM URINE 2022-08-10 09:33:00 [facility] OSMOLALITY, URINE 2022-08-10 09:33:00 [facility] TSH/FREE T4 IF INDICATED 2022-08-10 09:33:00 [facility] CORTISOL 2022-08-10 09:33:00 [facility] OSMOLALITY, SERUM 2022-08-10 09:33:00 [facility] T4, FREE 2022-08-10 09:33:00 [facility] CBC (HEMOGRAM ONLY) 2022-08-10 05:06:00 [facility] BASIC METABOLIC PANEL 2022-08-10 05:06:00 [facility] MAGNESIUM 2022-08-10 05:06:00 [facility] CBC (HEMOGRAM ONLY) 2022-08-09 03:38:00 [facility] BASIC METABOLIC PANEL 2022-08-09 03:38:00 [facility] MAGNESIUM 2022-08-09 03:38:00 [facility] CBC (HEMOGRAM ONLY) 2022-08-08 04:25:00 [facility] BASIC METABOLIC PANEL 2022-08-08 04:25:00 [facility] B-TYPE NATRIURETIC 2022-08-08 04:25:00 [facility] Medical FACTOR (BNP) [facility] STD PANEL - CT/GC RNA 2022-08-07 16:52:00 Yariel [facility] FUNGUS CULTURE + SMEAR 2022-08-07 10:22:00 [facility] ANAEROBIC CULTURE 2022-08-07 10:22:00 [facility] WOUND CULTURE + GRAM 2022-08-07 10:22:00 [facility] STAIN [facility] RADIOLOGIC GUIDANCE & 2022-08-07 10:20:00 [facility] BASIC METABOLIC PANEL 2022-08-07 03:42:00 [facility] CBC (HEMOGRAM ONLY) 2022-08-07 03:41:00 [facility] ABDOMEN/PELVIS WITH 2022-08-06 00:22:00 Aida Alcala I [facility] IV CONTRAST [facility] SCREEN, URINE 2022-08-05 21:06:00 OnRonal day [facility] CBC W/PLT COUNT & AUTO 2022-08-05 20:40:00 Aida Alcala [facility] DIFFERENTIAL [facility] BASIC METABOLIC PANEL 2022-08-05 20:40:00 [facility] PROT[facility]BIN [facility]/INR 2022-08-05 20:40:00 Fredrick [facility] TYPE AND SCREEN, 2022-08-05 20:40:00 Aida Alcala [facility] AUTOMATED [facility] CBC W/PLT COUNT & AUTO 2022-08-05 20:40:00 Aida Alcala I [facility] DIFFERENTIAL [facility] (CELLAVISION MANUAL 2022-08-05 20:40:00 [facility]rick [facility]) [facility] TRANSTHORACIC ECHO FOR 2022-08-03 13:59:39 Unknown, Hl7 Doctor C [facility] BASIC METABOLIC PANEL 2022-08-03 04:31:00 [facility] CBC (HEMOGRAM ONLY) 2022-08-03 04:31:00 [facility] CBC W/PLT COUNT & AUTO 2022-08-02 13:09:00 [facility] BASIC METABOLIC PANEL 2022-08-02 13:09:00 [facility] CBC W/PLT COUNT & AUTO 2022-08-02 13:09:00 [facility] (CELLAVISION MANUAL 2022-08-02 13:09:00 [facility]) [place] MYOCARDIAL PERFUSION 2022-08-01 13:31:00 [facility] SPECT, PHARM Azzam [place] TREADMILL 2022-08-01 11:39:56 Unknown, Hl7 [facility](NON-NUCLEAR Center TREADMILL) ECG 12-LEAD 2022-08-01 10:14:26 Unknown, Hl7 [facility] ECG 12-LEAD 2022-08-01 10:14:26 Unknown, 7 [facility] ECG 12-LEAD 2022-08-01 10:13:38 Unknown, 7 [facility] ECG 12-LEAD 2022-08-01 10:13:38 Unknown, 7 [facility] CBC W/PLT COUNT & AUTO 2022-08-01 04:47:00 Leonid Harris [facility] BASIC METABOLIC PANEL 2022-08-01 04:47:00 Leonid Harris [facility] MAGNESIUM 2022-08-01 04:47:00 Leonid Harris [facility] PHOSPHORUS 2022-08-01 04:47:00 Leonid Harris [facility] HEMOGLOBIN A1C 2022-08-01 04:47:00 [facility] PT/APTT 2022-08-01 04:47:00 [facility] HCG, QUANTITATIVE, 2022-08-01 04:47:00 [facility] Center TYPE AND SCREEN, 2022-08-01 04:47:00 Leonid Harris [facility] AUTOMATED Center CBC W/PLT COUNT & AUTO 2022-08-01 04:47:00 [facility] (CELLAVISION MANUAL 2022-08-01 04:47:00 [facility] Center 2D ECHO W/ DOPPLER 2022-07-31 15:20:04 [facility] (CW/PW/COLOR) [facility] ECG 12-LEAD 2022-07-31 15:01:36 [facility] ECG 12-LEAD 2022-07-31 15:01:36 Unknown, Hl7 [facility] US ENDOVAGINAL EV 2022-07-31 12:52:00 [facility] US PELVIS 2022-07-31 12:52:00 [place] [facility] US DOPPLER 2022-07-31 12:52:00 [facility] BASIC METABOLIC PANEL 2022-07-31 03:09:00 [facility] MAGNESIUM 2022-07-31 03:09:00 [facility] An [place] PHOSPHORUS 2022-07-31 03:09:[address] [facility] CBC W/PLT COUNT & AUTO 2022-07-31 03:09:00 [facility] DIFFERENTIAL An Center LIPID PANEL 2022-07-31 03:09:00 [facility] CBC W/PLT COUNT & AUTO 2022-07-31 03:09:00 [facility] [place] Pis [facility] DIFFERENTIAL An Center XR CHEST 1 VIEW PORTABLE 2022-07-30 16:42:00 Dewayne Reilly is [facility] / BEDSIDE An Center CBC W/PLT COUNT & AUTO 2022-07-30 15:38:00 Dewayne Reilly [facility] DIFFERENTIAL An Center BASIC METABOLIC PANEL 2022-07-30 15:38:00 [facility] An Center PROTHROMBIN TIME/INR 2022-07-30 15:38:00 [facility] Pis [facility] An Center MAGNESIUM 2022-07-30 15:38:00 [facility] An Center CBC W/PLT COUNT & AUTO 2022-07-30 15:38:00 Dayron Foster [facility] DIFFERENTIAL [facility] Plan of Care Planned Activity Planned Date Details Comments Source Future Scheduled 2025-07-31 Lipid panel (procedure) [facility] 00:00:00 [code = 77498493] Medical Ce nter Future Scheduled 2022-11-16 Influenza [...] [facility] 00:[facility]:00 [code = 54695812] Medical Ce nter Future Scheduled 2021-03-18 DEPRESSION [...] cervix Medical C enter (procedure) [code = 535497348] Future Scheduled 1997 Screening for malignant [facility] 00:00:00 neoplasm of cervix Medical C enter (procedure) [code = 498153717] Future Scheduled 1995 DTAP/TDAP/TD VACCINES (1 [facility] [...] screening Medical Cent er (procedure) [code = 949186019] Future Scheduled [address] [facility] Test 00:00:00 [code = CT Colonography [facility] (combo)] Future Scheduled 1976 Screening for malignant [facility] 00:00:00 neoplasm of colon Medical Ce nter (procedure) [code = 800246320] Future Scheduled 1976 Screening for malignant [facility] Test 00:00:00 neoplasm of colon Medical Ce nter (procedure) [code = 762269182] Future Scheduled 1976 Screening for malignant [facility] Test 00:00:00 neoplasm of colon Medical Ce nter (procedure) [code = 667638884] Future Scheduled 1976 Screening for malignant [facility] 00:00:00 neoplasm of colon Medical Ce nter (procedure) [code = 623999544] Future Scheduled 1976 Sigmoidoscopy [code = [facility]oscopy] Medical Cente r Future Scheduled 1976 CT Colonography (combo) [facility] 00:00:00 [code = CT Colonography [facility] (combo)] Future Scheduled 1976 Screening for malignant [facility] 00:00:00 neoplasm of colon Medical Ce nter (procedure) [code = 318911564] Future Scheduled 1976 Screening for malignant [facility] 00:00:00 neoplasm of colon Medical Ce nter (procedure) [code = 678077144] Future Scheduled 1976 Screening for malignant [facility] 00:00:00 neoplasm of colon Medical Ce nter (procedure) [code = 618681244] Future Scheduled 1976 Screening for malignant [facility] 00:00:00 neoplasm of colon Medical Ce nter (procedure) [code = 688727702] Future Scheduled 1976 Sigmoidoscopy [facility]code [facility]oscopy] Medical Cente r Encounters Start End Encounter Admission Attending Care Care Encounter Source Date/Time Date/Time Type Type Clinicians Facility Department ID 2022-11-07 Inpatient ER ZAHRA PASCUAL [facility] [id number] [facility] 19:39:43 2022-11-06 Inpatient ER SUSIE TAI [facility] [id number] [facility] 11:21:11 2022-11-06 Inpatient ER SUSIE TAI [facility] [id number] [facility] 10:39:32 2022-11-05 Inpatient ER SUSIE TAI [facility] [id number] [facility] 13:31:19 2022-11-03 Inpatient ER SUSIE TAI [facility] [id number] [facility] 10:45:25 2022-11-01 Inpatient ER SLEH [facility] [id number] [facility] 09:28:17 2022-11-01 Inpatient ER SLEH [facility] [id number] [facility] 09:11:47 2022-10-31 Inpatient ER BERSHAD, [facility]H [facility] [id number] [facility] 00:51:03 KATHY 2022-10-31 Inpatient ER BERSHAD, SLEH [facility] [id number] [facility] 00:50:54 KATHY 2022-10-30 Inpatient ER SLEH [facility] [id number] SLE[facility] 15:54:13 2022-10-30 Inpatient ER BERSHAD, SLEH [facility] [id number] [facility]H 09:14:25 KATHY 2022-10-30 Inpatient ER BERSHAD, SLEH SLEH [id number] SLEH 05:26:11 KATHY 2022-10-29 Inpatient ER BERSHAD, SLEH [facility] [id number] [facility] 17:09:25 KATHY 2022-10-29 Inpatient ER [facility] [id number] SLE[facility] 03:50:03 MURRAY 2022-12-27 2022-12-27 Outpatient SFA SFA [id number] Martin 10:33:43 10:33:43 1012 F Tello 2022-11-29 2022-11-29 Transition MONSE Sotelo [id number] Univers 00:00:00 00:00:00 of Care Desi REDDY 350.1.13.10 ity of [place]AR[place] 4.2.7.2.686 David s [id number] [place] [id number] [place] 2022-11-24 2022-11-28 [facility] Patrick[facility]ohaib 1.2.840.114 [id number] Univers 11:15:00 21:45:00 Encounter Ryne Yoder 350.1.13.1 0 ity [facility] 4.2.7.2.686 [place] [id number] [place] [id number] Branch 2022-11-24 2022-11-28 Inpatient U BEBA [facility] [id number] Univers 11:15:00 [facility]45[facility] 2022-11-28 Inpatient Johnny YODER [facility] [id number] Univers 11:15:00 21:45:00 [facility] 2022-10-29 2022-11-13 Inpatient ER , [facility] Neurology [id number] SLEH 02:56:00 21:30:00 GOYO 2022-11-06 2022-11-06 Inpatient ER SLEH SLEH [id number] SLEH 08:32:27 00:00:00 2022-11-05 2022-11-05 Outpatient SLEH SLEH [id number] [facility]H 00:00:00 00:00:00 2022-11-05 2022-11-05 Outpatient SLEH SLEH [id number] SLEH 00:00:00 00:00:00 2022-11-02 2022-11-02 Inpatient ER SUSIE TAI [facility] SLEH [id number] SLEH 10:58:08 00:00:00 2022-10-29 2022-10-29 Inpatient ER PITTARD, SLEH SLEH [id number] SLEH 10:12:32 23:59:00 MURRAY 2022-10-29 2022-10-29 Inpatient ER PITTARD, SLEH SLEH [id number] SLEH 10:12:49 00:00:00 MURRAY 2022-10-29 2022-10-29 Inpatient ER PITTARD, SLEH SLEH [id number] SLEH 10:12:41 00:00:00 MURRAY 2022-08-12 2022-08-12 Telephone Gregory [facility] [id number] BROCK Goyal 00:00:00 00:00:00 [facility] 2022-08-05 2022-08-11 Hospital ER Popeye Mcneal In [facility] [id number] BROCK Goyal 18:09:00 14:47:00 [facility] [place] 2022-08-05 2022-08-11 Inpatient ER [facility] Gynecology [id number] SLE 18:09:00 14:47:00 KRISTIN 2022-08-05 2022-08-05 [id number] 00:00[facility]00 [facility] 2022-07-31 2022-08-03 [facility] UR Les Al [facility] [id number] 04:37:00 20:00:00 Encounter Nena Waller Ltac, Located Within [facility] Matias Leonid Paula [place] 2022-07-31 2022-08-03 Inpatient UR [facility] Med [id number] SLE 04:37:00 20:00:00 [facility] 2022-07-30 2022-07-31 Inpatient ER [facility] Gynecology [id number] [facility] 14:07:00 04:04:00 [place] 2022-07-30 2022-07-31 [facility] ER [facility], [facility] [id number] 14:07:00 04:04:00 Encounter Dayron [facility] 2022-07-31 2022-07-31 Orders [facility] [id number] 00:00:00 00:00:00 Only [facility] 2022-07-30 2022-07-30 Travel [facility] [id number] [facility] 00:[facility]00 00:00:00 [facility] Results Test Description Test Time Test Comments Results Result Comments Source HEPATIC FUNCTION PANEL (05544) (ALB,T.PRO,BILI 2022-11-26 13 :08:17 T,BU/BC,ALT,AST,ALK PHOS) Test Item Value Reference Range Interpretation Comme nts TOTAL BILI (test code = 9827836604) 0.9 mg/dL 0.1-1.1 BILI UNCON (test code = 2709164697) 0.6 mg/dL 0.1-1.1 BILI CONJ (test code = 0452459706) 0.0 mg/dL 0.0-0.3 T PROTEIN (test code = 4378418559) 6.5 g/dL 6.3-8.2 ALBUMIN (test code = 6406544756) 4.0 g/dL 3.5-5.0 ALK PHOS (test code = 0345389956) 527 U/L 34-122 H ALTv (test code = 1742-6) 116 U/L 5-35 H AST(SGOT) (test code = 9992833075) 76 U/L 13-40 H Lab Interpretation (test code = 74871-8) Abnormal [facility] METABOLIC PANEL (NA, K, CL, CO2, GLUCOSE, BUN, CREATININE, CA)2022-11-26 10:08:01 Test Item Value Reference Range Interpretation Comments NA (test code = 136 mmol/L 135-145 6547997540) K (test code = 4.1 mmol/L 3.5-5.0 0779614702) CL (test code = 100 mmol/L 98-108 6580920395) CO2 TOTAL (test code 28 mmol/L 23-31 = 2130210645) AGAP (test code = 8 2-16 8968191460) BUN (test code = 17 mg/dL 7-23 2035979958) GLUCOSE (test code = 87 mg/dL 70-110 9163984644) CREATININE (test code 1.00 mg/dL 0.50-1.04 = 5295289971) CALCIUM (test code = 9.3 mg/dL 8.6-10.6 3248080605) eGFR (test code = 59.7 mL/min/1.73m2 2183259717) SUE (test code = SUE) Association of [...] or urine or abnormalities in imaging tests). [facility] 10:08[facility]01 Test Item Value Reference Range Interpretation Comments MAGNESIUM (test code = 7031197721) 1.8 mg/dL 1.7-2.4 Lab Interpretation (test code = Normal 64710-1) [facility] WITH [id number] 09:36:22 Test Item Value Reference Range Interpretation Comments WBC (test code = 4.18 See_Comment L [Automated 5490-2) message] The sy stem which generated this result transmitted reference range : 4.30 - 11.10 10*3/?L. The reference range was not used to interpret this result as normal/abnormal . RBC (test code = 3.39 See_Comment L [Automated 159-8) message] The sy stem which generated this [...] RDW-SD (test code = 42.7 fL 39.0-49.9 48648-8) RDW-CV (test code = 12.5 % 12.0-15.5 788-0) PLT (test code = 151 See_Comment L [Automated 777-3) message] The sy stem which generated this result transmitted reference range : 166 - 358 10*3/ ?L. The reference r elizabeth was not used to interpret this result as normal/abnormal . MPV (test code = 9.4 fL 9.5-12.9 L 08279-0) NRBC/100 WBC (test 0.0 See_Comment [Automat ed code = 0942445606) message] The system which generated this result transmitted reference range : 0.0 - 10.0 /100 WBCs. The refer ence range was not u sed to interpret th is result as normal/abnormal . NRBC x10^3 (test code See_Comment [Auto mated = 7421760428) message] The s ystem which generated this result transmitted reference range : 10*3/?L. The reference range was not used to interpret this result as normal/abnormal . GRAN MAT (NEUT) % 68.0 % (test code = 770-8) IMM GRAN % (test code 0.00 % = 1668521809) LYMPH % (test code = 17.7 % 736-9) MONO % (test code = 9.1 % 5905-5) EOS % (test code = 4.5 % 713-8) BASO % (test code = 0.7 % 706-2) GRAN MAT x10^3(ANC) 2.84 10*3/uL 1.88-7.09 (test code = 2485029692) IMM GRAN x10^3 (test 0.00-0.06 code = 1134009544) LYMPH x10^3 (test code 0.74 10*3/uL 1.32-3.29 L = 731-0) MONO x10^3 (test code 0.38 10*3/uL 0.33-0.92 = 742-7) EOS x10^3 (test code = 0.19 10*3/uL 0.03-0.39 711-2) BASO x10^3 (test code 0.03 10*3/uL 0.01-0.07 = 704-7) Lab Interpretation Abnormal (test code = 11327-0) [facility] METABOLIC PANEL (NA, K, CL, CO2, GLUCOSE, BUN, CREATININE, CA)2022-11-25 09:47:18 Test Item Value Reference Range Interpretation Comments NA (test code = 135 mmol/L 135-145 0226431665) K (test code = 5.0 mmol/L 3.5-5.0 Slight 9089648035) hemolysis CL (test code = 100 mmol/L 98-108 2899473695) CO2 TOTAL (test code 28 mmol/L 23-31 = 9566145088) AGAP (test code = 7 2-16 2530435332) BUN (test code = 20 mg/dL 7-23 Slight 1480696345) hemolysis GLUCOSE (test code = 109 mg/dL 70-110 7474578291) CREATININE (test code 1.20 mg/dL 0.50-1.04 H = 8581757432) CALCIUM (test code = 9.2 mg/dL 8.6-10.6 0718215346) eGFR (test code = 48.4 mL/min/1.73m2 3130004640) SUE (test code = SUE) Association of [...] tests). Lab Interpretation Abnormal (test code = 77188-2) [facility] 09:42:55 Test Item Value Reference Range Interpretation Comments MAGNESIUM (test code = 3787521105) 3.1 mg/dL 1.7-2.4 H Lab Interpretation (test code = Abnormal 63850-0) [facility] VIRUS ANTIBODY [id number] 23:52:42 Test Item Value Reference Range Interpretation Comments HAVM 0.05 Semi-Quantitative (test code = 19381-3) SUE (test code = HAVAb IgM Interpretative SUE) Information: Reactive greater than or equal to 1.2 Biotin has been reported to cause a negative bias, interpret results relative to patient's use of biotin. [facility] [id number] 23:35:43 Test Item Value Reference Range Interpretation Comments TROPONIN I (test code = 0.911 ng/mL <=0.034 H 2764109307) SUE (test code = SUE) Reference (Normal) [...] biotin. Lab Interpretation Abnormal (test code = 70327-8) [facility]2 AG-AB WITH [id number] 21:57:58 Test Item Value Reference Range Interpretation Comments HIV 0.12 Negative Semi-quantitative (test code = 63198-4) SUE (test code = Non-reactive for HIV-1 SUE) antigen and HIV-1/HIV-2 antibodies. ?No laboratory evidence of HIV infection. ?Repeat in 2-4 weeks if acute HIV infection is suspected. [facility] HospitalHCV [id number] 21:57:58 Test Item Value Reference Range Interpretation Comments HCV Ab (test code = 96580-5) Negative HCV Semi-Quantitative (test code = 0.01 91434-6) [facility] SURFACE [id number] 21:57:58 Test Item Value Reference Range Interpretation Comments HBsAB (test code = Negative 1056016284) HBsAb 0.00 mIU/mL Semi-Quantitative (test code = 6281677320) SUE (test code = Interpretation: SUE) ?Hepatitis B Surface Antibody ? Negative - Patient is considered to be not immune to infection with HBV. ? ? Positive - Anti-HBs detected at greater than or equal to 12 mIU/mL. ?Patient is considered to be immune to infection with HBV. ? [facility]HEPAT[facility] B SURFACE [id number] 21:40:35 Test Item Value Reference Range Interpretation Comments HBsAg Semi-Quantitative (test code = 0.14 Negative 5195-3) [facility] Hospital[facility]YCOSYLATED HEMOGLOBIN (A1C)2022-11-24 18:18:35 Test Item Value Reference Range Interpretation Comments HGB A1C (test code = 4.6 % 4.0-5.7 4548-4) SUE (test code = SUE) Reference RangesNormal: <5.7%Prediabetes: 5.7 - 6.4%Diabetes: > 6.5% Lab Interpretation (test Normal code = 40976-8) [facility] HospitalTHYROID STIMULATING [id number] 17:58:24 Test Item Value Reference Range Interpretation Comments TSH (test code = 2.03 See_Comment [Automated message] 6126791923) The system 5app generated this result transmitted ref erence range: 0.45 - 4 .70 mIU/L. The refe rence range was not u sed to interpret this result as normal/abnor mal. Lab Interpretation (test Normal code = 16845-3) [facility]TR[facility] [id number] 17:39:48 Test Item Value Reference Range Interpretation Comments TROPONIN I (test code = 1.340 ng/mL <=0.034 H 9410728336) SUE (test code = SUE) Reference (Normal) [...] biotin. Lab Interpretation Abnormal (test code = 53000-0) [facility] HospitalN-TERMINAL [id number] 17:39:48 Test Item Value Reference Range Interpretation Comments NT-proBNP (test code = 2520 pg/mL <=125 H 24336-2) SUE (test code = SUE) Positive: Heart Failure Likely Lab Interpretation (test Abnormal code = 64239-7) [facility] METABOLIC PANEL (NA, K, CL, CO2, GLUCOSE, BUN, CREATININE, CA)2022-11-24 17:30:04 Test Item Value Reference Range Interpretation Comments NA (test code = 135 mmol/L 135-145 1707364721) K (test code = 3.9 mmol/L 3.5-5.0 4948198488) CL (test code = 97 mmol/L 98-108 L 2743612394) CO2 TOTAL (test code = 27 mmol/L 23-31 5338681953) AGAP (test code = 11 2-16 1443394502) BUN (test code = 23 mg/dL 7-23 1942044188) GLUCOSE (test code = 163 mg/dL 70-110 H 1733822730) CREATININE (test code = 1.40 mg/dL 0.50-1.04 H 6231043535) CALCIUM (test code = 9.4 mg/dL 8.6-10.6 7761434475) eGFR (test code = 40.5 mL/min/1.73m2 6298916512) SUE (test code = SUE) Association of [...] tests). Lab Interpretation Abnormal (test code = 66937-8) [facility] FUNCTION PANEL (59254) (ALB,T.PRO,BILI T,BU/BC,ALT,AST,ALK PHOS)2022-11-24 17:30:04 Test Item Value Reference Range Interpretation Comments TOTAL BILI (test code = 4273715029) 1.0 mg/dL 0.1-1.1 BILI UNCON (test code = 8958370147) 0.6 mg/dL 0.1-1.1 BILI CONJ (test code = 2158440194) 0.0 mg/dL 0.0-0.3 T PROTEIN (test code = 5573712144) 6.8 g/dL 6.3-8.2 ALBUMIN (test code = 8884945105) 4.1 g/dL 3.5-5.0 ALK PHOS (test code = 0802089714) 746 U/L 34-122 H ALTv (test code = 1742-6) 183 U/L 5-35 H AST(SGOT) (test code = 3988960830) 196 U/L 13-40 H Lab Interpretation (test code = Abnormal 16309-0) [facility] (29217)(TOTAL CHOLESTEROL, TRIGLYCERIDES, HDL)2022-11-24 17:30:04 Test Item Value Reference Range Interpretation Comments CHOL (test code = 4954259929) 113 mg/dL 120-200 L HDL (test code = 9665101009) 62 mg/dL >=50 HDLC RATIO (test code = 2817383253) 1.8 <=4.5 TRIG (test code = 4738668100) 71 mg/dL 30-170 LDL CHOL (test code = 06853-3) 37 mg/dL <=160 VLDL (test code = 0285435609) 14 mg/dL 5-60 Lab Interpretation (test code = Abnormal 77793-2) [facility] WITH [id number] 16:55:22 Test Item Value Reference Range Interpretation Comments WBC (test code = 6.05 See_Comment [Automated 2390-2) message] The sy stem which generated this result transmitted reference range : 4.30 - 11.10 10*3/?L. The reference range was not used to interpret this result as normal/abnormal . RBC (test code = 3.21 See_Comment L [Automated 607-8) message] The sy stem which generated this [...] RDW-SD (test code = 44.3 fL 39.0-49.9 06060-2) RDW-CV (test code = 12.9 % 12.0-15.5 788-0) PLT (test code = 203 See_Comment [Automated 777-3) message] The sy stem which generated this result transmitted reference range : 166 - 358 10*3/ ?L. The reference r elizabeth was not used to interpret this result as normal/abnormal . MPV (test code = 9.9 fL 9.5-12.9 90652-1) NRBC/100 WBC (test 0.0 See_Comment [Automat ed code = 4561193284) message] The system which generated this result transmitted reference range : 0.0 - 10.0 /100 WBCs. The refer ence range was not u sed to interpret th is result as normal/abnormal . NRBC x10^3 (test code See_Comment [Auto mated = 5917615255) message] The s ystem which generated this result transmitted reference range : 10*3/?L. The reference range was not used to interpret this result as normal/abnormal . GRAN MAT (NEUT) % 59.6 % (test code = 770-8) IMM GRAN % (test code 0.20 % = 2889262138) LYMPH % (test code = 28.3 % 736-9) MONO % (test code = 9.1 % 5905-5) EOS % (test code = 2.5 % 713-8) BASO % (test code = 0.3 % 706-2) GRAN MAT x10^3(ANC) 3.61 10*3/uL 1.88-7.09 (test code = 7143906639) IMM GRAN x10^3 (test 0.00-0.06 code = 5433195716) LYMPH x10^3 (test code 1.71 10*3/uL 1.32-3.29 = 731-0) MONO x10^3 (test code 0.55 10*3/uL 0.33-0.92 = 742-7) EOS x10^3 (test code = 0.15 10*3/uL 0.03-0.39 711-2) BASO x10^3 (test code 0.01-0.07 = 704-7) Lab Interpretation Abnormal (test code = 82358-2) [facility]PO[facility] [id number] 12:43:54 Test Item Value Reference Range Interpretation Comments POC-GLUCOSE METER 138 mg/dL 70-110 H : TESTED A T [facility] 6720 (BEAKER) (test code = [place], 1538) 81385: Lace Pinner/Techni smiley ID = [id number] for MANDA ESPARZA [id number] 06:54:19 Test Item Value Reference Range Interpretation Comments PHOSPHORUS (BEAKER) (test code = 4.2 mg/dL 2.3-4.7 604) Lace Pinner ID - [id number] 06:54:18 Test Item Value Reference Range Interpretation Comments MAGNESIUM (BEAKER) (test code = 1.7 mg/dL 1.6-2.6 627) Lace Pinner ID - ADMINCBC W/PLT COUNT & AUTO [id number] 06:00:54 Test Item Value Reference Range Interpretation [...] PERCENT (BEAKER) (test code = 2801) POCT-GLUCOSE [id number] 21:38:27 Test Item Value Reference Range Interpretation Comments POC-GLUCOSE METER 88 mg/dL 70-110 : TESTED A T [facility] 6720 (BEAKER) (test code = [facility], 153) 48753: Lace Pinner/Techni smiley ID = [id number] for NADEGE MORALES POCT-GLUCOSE [id number] 18:19:26 Test Item Value Reference Range Interpretation Comments POC-GLUCOSE METER 93 mg/dL 70-110 : TESTED A T [facility] 6720 (BEAKER) (test code = [facility], 153) 67404: Lace Pinner/Techni smiley ID = [id number] for NONA REESE, MANDA POCT-GLUCOSE [id number] 13:13:27 Test Item Value Reference Range Interpretation Comments POC-GLUCOSE METER 91 mg/dL 70-110 : TESTED A T [facility] 6720 (BEAKER) (test code = [facility], 153) 64020: Lace Pinner/Techni smiley ID = [id number] for MART MARY ANN, MANDA BLOOD [id number] 12:00:51 Test Item Value Reference Range Interpretation Comments CULTURE (BEAKER) (test No growth in 5 days code = 1095) BLOOD [id number] 12:00:51 Test Item Value Reference Range Interpretation Comments CULTURE (BEAKER) (test No growth in 5 days code = 1095) The specimen volume collected for this blood culture was below the optimum (10 mL per bottle or 20 mL total). Use of lower volumes may adversely affect recovery and/or detection times of some organisms.POCT-GLUCOSE [id number] 06:46:01 Test Item Value Reference Range Interpretation Comments POC-GLUCOSE METER 102 mg/dL 70-110 : [facility] (BEAKER) (test code = AVINASH FARRAR, 1538) 85672: Lace Pinner/Techni smiley ID = [id number] for Teresa Rose [id number] 05:48:23 Test Item Value Reference Range Interpretation Comments MAGNESIUM (BEAKER) (test code = 1.8 mg/dL 1.6-2.6 627) Lace Pinner ID - [id number] 05:48:23 Test Item Value Reference Range Interpretation Comments PHOSPHORUS (BEAKER) (test code = 3.6 mg/dL 2.3-4.7 604) Lace Pinner ID - MARCOBASIC METABOLIC [id number] 05:48:22 Test Item Value Reference Range Interpretation [...] not appl icable for dialysis patien ts Lace Pinner ID - MARCOCBC W/PLT COUNT & AUTO [id number] 05:10:47 Test Item Value Reference Range Interpretation [...] PERCENT (BEAKER) (test code = 2801) POCT-GLUCOSE [id number] 23:44:35 Test Item Value Reference Range Interpretation Comments POC-GLUCOSE METER 93 mg/dL 70-110 : TESTED A T [facility] 6720 (BEAKER) (test code = [facility], 153) 85443: Lace Pinner/Techni smiley ID = [id number] for Teresa Camejo POCT-GLUCOSE [id number] 17:35:54 Test Item Value Reference Range Interpretation Comments POC-GLUCOSE METER 108 mg/dL 70-110 : TESTED A T [facility] 6720 (BEAKER) (test code = [facility], 153) [address]690: Lace Pinner/Techni smiley ID = [id number] for Donna Rolle BLOOD [id number] 17:01:46 Test Item Value Reference Range Interpretation Comments CULTURE (BEAKER) (test No growth in 5 days code = 1095) The specimen volume collected for this blood culture was below the optimum (10 mL per bottle or 20 mL total). Use of lower volumes may adversely affect recovery and/or detection times of some organisms.POCT-GLUCOSE [id number] 13:41:35 Test Item Value Reference Range Interpretation Comments POC-GLUCOSE METER 99 mg/dL 70-110 : TESTED A T [facility] 6720 (BEAKER) (test code = [facility], 153) 34912: Lace Pinner/Techni smiley ID = [id number] for Jean Marie posada, Donna BLOOD [id number] 13:01:43 Test Item Value Reference Range Interpretation Comments CULTURE (BEAKER) (test No growth in 5 days code = 1095) POCT-GLUCOSE [id number] 07:21:17 Test Item Value Reference Range Interpretation Comments POC-GLUCOSE METER 110 mg/dL 70-110 : TESTED A T [facility] 6720 (BEAKER) (test code = [facility]IN[facility] Dunn [facility], 1538) [address]: Lace Pinner/Techni smiley ID = [id number] for Teresa Rose BASIC METABOLIC [id number] 05:31:26 Test Item Value Reference Range Interpretation [...] not appl icable for dialysis patien ts Lace Pinner ID - [id number] 05:31:26 Test Item Value Reference Range Interpretation Comments MAGNESIUM (BEAKER) (test code = 2.0 mg/dL 1.6-2.6 627) Lace Pinner ID - [id number] 05:31:26 Test Item Value Reference Range Interpretation Comments PHOSPHORUS (BEAKER) (test code = 3.6 mg/dL 2.3-4.7 604) Lace Pinner ID - MARCOCBC W/PLT COUNT & AUTO [id number] 04:56:52 Test Item Value Reference Range Interpretation [...] PERCENT (BEAKER) (test code = 2801) POCT-GLUCOSE [id number] 00:26:59 Test Item Value Reference Range Interpretation Comments POC-GLUCOSE METER 135 mg/dL 70-110 H : TESTED A T [facility] 6720 (BEAKER) (test code = [facility], [facility]8) 55[address]: Lace Pinner/Techni smiley ID = [id number] for Teresa Rose POCT-GLUCOSE [id number] 17:22:27 Test Item Value Reference Range Interpretation Comments POC-GLUCOSE METER 127 mg/dL 70-110 H : TESTED A T [facility] 6720 (BEAKER) (test code = [facility], [facility]8) 62345: Lace Pinner/Techni smiley ID = [id number] for Um eh, [place]umbu POCT-GLUCOSE [id number] 17:20:21 Test Item Value Reference Range Interpretation Comments POC-GLUCOSE METER 23 mg/dL 70-110 LL : TESTED A T [facility] 6720 (BEAKER) (test code = [facility], 1538) 79122: Lace Pinner/Techni smiley ID = [id number] for Umeh , [place]umb[place] POCT-GLUCOSE [id number] 12:34:42 Test Item Value Reference Range Interpretation Comments POC-GLUCOSE METER 129 mg/dL 70-110 H : TESTED A T [facility] 6720 (BEAKER) (test code = [facility], [facility]) 83361: Lace Pinner/Techni smiley ID = [id number] for Um eh, [place] [id number] 08:08:41 Test Item Value Reference Range Interpretation Comments MAGNESIUM (BEAKER) (test code = 1.9 mg/dL 1.6-2.6 627) Lace Pinner ID - [id number] 08:08:41 Test Item Value Reference Range Interpretation Comments PHOSPHORUS (BEAKER) (test code = 3.5 mg/dL 2.3-4.7 604) Lace Pinner ID - ADMINBASIC METABOLIC [id number] 08:08:40 Test Item Value Reference Range Interpretation [...] not appl icable for dialysis patien ts Lace Pinner ID - ADMINPOCT-GLUCOSE [id number] 07:08:26 Test Item Value Reference Range Interpretation Comments POC-GLUCOSE METER 119 mg/dL 70-110 H : TESTED A T [facility] 6720 (BEAKER) (test code = [facility]INASH Dunn [facility], 1538) 33276: Lace Pinner/Techni smiley ID = [id number] for Teresa Rose CBC W/PLT COUNT & AUTO [id number] 06:25:01 Test Item Value Reference Range Interpretation [...] PERCENT (BEAKER) (test code = 2801) POCT-GLUCOSE [id number] 23:32:08 Test Item Value Reference Range Interpretation Comments POC-GLUCOSE METER 97 mg/dL 70-110 : TESTED A T [facility] 6720 (BEAKER) (test code = [facility], 1538) 38015: Lace Pinner/Techni smiley ID = [id number] for Teresa Camejo POCT-GLUCOSE [id number] 17:52:25 Test Item Value Reference Range Interpretation Comments POC-GLUCOSE METER 121 mg/dL 70-110 H : TESTED A T [facility] 6720 ([facility]) (test code = [facility], 1538) 38627: Lace Pinner/Techni smiley ID = [id number] for An Donna lucas POCT-GLUCOSE [id number] 12:24:17 Test Item Value Reference Range Interpretation Comments POC-GLUCOSE METER 106 mg/dL 70-110 : TESTED A T [facility] 6720 ([facility]) (test code = [facility], 153) 85380: Lace Pinner/Techni smiley ID = [id number] for An Donna lucas VANCOMYCIN LEVEL, [id number] 10:00:44 Test Item Value Reference Range Interpretation Comments VANCOMYCIN TROUGH ([facility]) (test 35.0 ug/mL 10.0-20.0 HH code = 522) Lace Pinner ID - ADMINPOCT-GLUCOSE [id number] 06:04:34 Test Item Value Reference Range Interpretation Comments POC-GLUCOSE METER 98 mg/dL 70-110 : TESTED A T [facility] 6720 ([facility]) (test code = [facility], 153) 14421: Lace Pinner/Techni smiley ID = [id number] for Andi Warren [id number] 04:34:22 Test Item Value Reference Range Interpretation Comments PHOSPHORUS (BEAKER) (test code = 4.3 mg/dL 2.3-4.7 604) Lace Pinner ID - mmBASIC METABOLIC [id number] 04:34:21 Test Item Value Reference Range Interpretation [...] not appl icable for dialysis patien ts Lace Pinner ID - [id number] 04:34:21 Test Item Value Reference Range Interpretation Comments MAGNESIUM (BEAKER) (test code = 2.0 mg/dL 1.6-2.6 627) Lace Pinner ID - mmCBC W/PLT COUNT & AUTO [id number] 04:15:17 Test Item Value Reference Range Interpretation [...] PERCENT (BEAKER) (test code = 2801) POCT-GLUCOSE [id number] 00:10:22 Test Item Value Reference Range Interpretation Comments POC-GLUCOSE METER 102 mg/dL 70-110 : TESTED A T [facility] 6720 (BEAKER) (test code [facility], = 1538) 85403: Lace Pinner/Techni smiley ID = [id number] for Andi Warren BASIC METABOLIC [id number] 19:00:42 Test Item Value Reference Range Interpretation [...] not appl icable for dialysis patien ts Lace Pinner ID - JSPOCT-GLUCOSE [id number] 17:28:38 Test Item Value Reference Range Interpretation Comments POC-GLUCOSE METER 122 mg/dL 70-110 H : TESTED A T [facility] 6720 (BEAKER) (test code = [facility], 1538) 29861: Lace Pinner/Techni smiley ID = [id number] for An Candace lucasa POCT-GLUCOSE [id number] 12:36:44 Test Item Value Reference Range Interpretation Comments POC-GLUCOSE METER 110 mg/dL 70-110 : TESTED A T [facility] 6720 (BEAKER) (test code = [facility], 1538) 53163: Lace Pinner/Techni smiley ID = [id number] for An Donna lucas [id number] 06:20:37 Test Item Value Reference Range Interpretation Comments MAGNESIUM (BEAKER) (test code = 2.2 mg/dL 1.6-2.6 627) Lace Pinner ID - [id number] 06:20:37 Test Item Value Reference Range Interpretation Comments PHOSPHORUS (BEAKER) (test code = 3.9 mg/dL 2.3-4.7 604) Lace Pinner ID - ADMINBASIC METABOLIC [id number] 06:20:36 Test Item Value Reference Range Interpretation [...] i s not applicable for dialysis patients Lace Pinner ID - ADMINPOCT-GLUCOSE [id number] 06:09:53 Test Item Value Reference Range Interpretation Comments POC-GLUCOSE METER 69 mg/dL 70-110 L : TESTED A T [facility] 6720 (BEAKER) (test code = [facility], 1538) 42118: Lace Pinner/Techni smiley ID = [id number] for Andi Warren CBC W/PLT COUNT & AUTO [id number] 05:15:05 Test Item Value Reference Range Interpretation [...] code = 2801) XR ABDOMEN/KUB 1 VIEW [id number] 21:59:17 [facility] 1975 Sex: FEXAM/TECHNIQUE: XR ABDOMEN/KUB 1 VIEW PORTABLEINDICATION: Confirm corpak placementCOMPARISON: 11/05/2022.FINDINGS: Feeding tube terminates in the distal stomach. No dilated loops of largesmall bowel. No acute osseous process. Lung bases are clear.IMPRESSION:Feeding tube terminates in the distal stomach.Electronically Signed By: Carlos Preciado11/07/2022 22:01 CDTWorkstation Name: [id number] METABOLIC [id number] 18:29:04 Test Item Value Reference Range Interpretation [...] not appl icable for dialysis patien ts Lace Pinner ID - BSDRUG SCREEN, URINE, [id number] 08:47:31 Test Item Value Reference Range Interpretation Comments SCAN RESULT (test see scanned report See scanned report. code = 8992670) see scanned reportPOCT-GLUCOSE [id number] 06:13:13 Test Item Value Reference Range Interpretation Comments POC-GLUCOSE METER 81 mg/dL 70-110 : TESTED A T [facility] 6720 (BEAKER) (test code = SRIRAMTOPHER Dunn [facility], 1538) 71919: Lace Pinner/Techni smiley ID = [id number] for Jessica Rodrigues [id number] 04:03:55 Test Item Value Reference Range Interpretation Comments PHOSPHORUS (BEAKER) (test code = 4.8 mg/dL 2.3-4.7 H 604) Lace Pinner ID - EMBASIC METABOLIC [id number] 04:03:54 Test Item Value Reference Range Interpretation [...] not appl icable for dialysis patien ts Lace Pinner ID - [id number] 04:03:54 Test Item Value Reference Range Interpretation Comments MAGNESIUM (BEAKER) (test code = 2.4 mg/dL 1.6-2.6 627) Lace Pinner ID - EMHIGH SENSITIVITY TROPONIN [id number] 03:58:57 Test Item Value Reference Range Interpretation Comments HIGH SENSITIVITY 165 pg/ml See_Comment H [Automated message] TROPONIN I (test code The sy stem which = [id number]) generated this result transmitted ref erence range: <=17. Th e reference range was not used to int erpret this result as normal/abnormal . Lace Pinner ID - EMThe [employer] STAT High Sensitivity Troponin-I results should be used in conjunctionwith other diagnostic information such as ECG, clinical observations and information, and patient symptoms to aid in the diagnosis of NH.CBC W/PLT COUNT & AUTO [id number] 03:38:52 Test Item Value Reference Range Interpretation [...] PERCENT (BEAKER) (test code = 2801) POCT-GLUCOSE [id number] 00:25:14 Test Item Value Reference Range Interpretation Comments POC-GLUCOSE METER 88 mg/dL 70-110 : [facility] ([facility] (test code = [facility], 1538) 64612: Lace Pinner/Techni smiley ID = [id number] for Jessica Rodrigues HIGH SENSITIVITY TROPONIN [id number] 22:04:24 Test Item Value Reference Range Interpretation Comments HIGH SENSITIVITY 193 pg/ml See_Comment H [Automated message] TROPONIN I (test code The sy stem which = [id number]) generated this result transmitted ref erence range: <=17. Th e reference range was not used to int erpret this result as normal/abnormal . Lace Pinner ID - DBThe [employer] STAT High Sensitivity Troponin-I results should be used in conjunctionwith other diagnostic information such as ECG, clinical observations and information, and patient symptoms to aid in the diagnosis of NH.URINALYSIS W/ REFLEX URINE [id number] 15:49:18 Test Item Value Reference Range Interpretation [...] /LPF 514) SOURCE(BEAKER) (test code = 2795) Lace Pinner ID - [auto]Lace Pinner ID - bsPT/[id number] 15:35:00 Test Item Value Reference Range Interpretation [...] patients with mechanical heart valves.HIGH SENSITIVITY TROPONIN [id number] 15:30:15 Test Item Value Reference Range Interpretation Comments HIGH SENSITIVITY 264 pg/ml See_Comment H [Automated message] TROPONIN I (test code The sy stem which = [id number]) generated this result transmitted ref erence range: <=17. Th e reference range was not used to int erpret this result as normal/abnormal . Lace Pinner ID - ADMINThe [employer] STAT High Sensitivity Troponin-I results should be used in conjunction with other diagnostic information such as ECG, clinical observations and information, and patientsymptoms to aid in the diagnosis of NH. BLOOD GAS, [id number] 15:09:57 Test Item Value Reference Range Interpretation [...] 36.0 XR CHEST 1 VIEW PORTABLE / [id number] 13:38:36 [facility] : 1975 Sex: FChest, 1 view, 11/06/2022 11:58 AM.History: r/o aspiration pneumonia.Comparison: 10/30/2022.Discussion: Thecardiac silhouette is prominent but stable. Lungs areclear. There is no pneumothorax. Feeding tube terminates below thehemidiaphragm. Right IJ central line is no longer present. There are noacute osseous findings.IMPRESSION:No acute pulmonary findings.Electronically Signed By: Sage Zuly11/06/2022 13:40 CDTWorkstation Name: [id number] 2022-11-06 11:32:33 Test Item Value Reference Range Interpretation Comments PROCALCITONIN (BEAKER) (test code 0.31 ng/mL <0.05 H = 3036) SEPSIS RISK (ng/mL)Low: 0.05-0.50Intermediate: 0.51-2.00High: >=2.01HIGH SENSITIVITY TROPONIN [id number] 11:27:53 Test Item Value Reference Range Interpretation Comments HIGH SENSITIVITY 344 pg/ml See_Comment H [Automated message] TROPONIN I (test code The sy stem which = [id number]) generated this result transmitted ref erence range: <=17. Th e reference range was not used to int erpret this result as normal/abnormal . Lace Pinner ID - DAMIÁN WThe [employer] STAT High Sensitivity Troponin-I results should be used in conjunction with other diagnostic information such as ECG, clinical observations and information, and patient symptoms to aid in the diagnosis of NH.LACTIC ACID, [id number] 11:07:17 Test Item Value Reference Range Interpretation Comments LACTATE BLOOD VENOUS (2) (BEAKER) 0.80 mmol/L 0.50-2.00 (test code = 2872) Lace Pinner ID - DAMIÁN WCT BRAIN WITHOUT IV [id number] 10:59:53 [facility] Irineo : 1975 Sex: [...] Signed By: Alexandra Liang11/06/2022 11:01 CDTWorkstation Name: [id number] 10:57:58 Test Item Value Reference Range Interpretation Comments POC-HEMATOCRIT 34 % 36-45 L : Lace Pinner/Te chnician ID = (WESLEY) (test code = 800181 for CARLOS, 1856) SAMY [id number] 10:57:58 Test Item Value Reference Range Interpretation Comments POC-GLUCOSE (NERISBITA) 117 mg/dL 70-110 H : TESTE D AT [facility] 6720 (test code = 1855) [facility], [address]: Lace Pinner/Techni smiley ID = [id number] for SAMY DAVIS [id number] 10:57:57 Test Item Value Reference Range Interpretation Comments POC-POTASSIUM 5.5 meq/L 3.6-5.5 : TESTED AT [facility] 6720 (BEAKER) (test code [facility], = 1540) [address]607: Lace Pinner/Techni smiley ID = [id number] for SAMY DAVIS [id number]-[id number] 10:57:57 Test Item Value Reference Range Interpretation Comments POC-HEMOGLOBIN 11.6 g/dL 12.0-15.0 L : TESTED AT [facility] 6720 (BEAKER) (test code [facility], = 1856) [address]60: Lace Pinner/Techni smiley ID = [id number] for SAMY DAVIS [id number] 10:57:52 Test Item Value Reference Range Interpretation Comments POC-SODIUM (BEAKER) 142 meq/L 135-148 : TESTED AT [facility] 6720 (test code = 1542) [facility], [address]: Lace Pinner/Techni smiley ID = [id number] for SAMY DAVIS POCT-BLOOD GASES, [id number] 10:57:51 Test Item Value Reference Range Interpretation [...] 7.0 meq/L -2.0-3.0 H : TESTED AT [facility] 6720 ARTERIAL-POC [facility], (BEAKER) (test code 96812: = 1841) Lace Pinner/Techni smiley ID = [id number] for SAMY DAVIS POCT-GLUCOSE [id number] 10:21:20 Test Item Value Reference Range Interpretation Comments POC-GLUCOSE METER 117 mg/dL 70-110 H : TESTED A T [facility] 6720 ([facility] (test code = [facility], 1538) [address]: Lace Pinner/Techni smiley ID = [id number] for MANDA ESPARZA POCT-GLUCOSE [id number] 05:45:28 Test Item Value Reference Range Interpretation Comments POC-GLUCOSE METER 116 mg/dL 70-110 H : TESTED A T [facility] 6720 ([facility] (test code = [facility], 1538) [address]: Lace Pinner/Techni smiley ID = [id number] for Teresa Rose BASIC METABOLIC [id number] 05:42:31 Test Item Value Reference Range Interpretation [...] not appl icable for dialysis patien ts Lace Pinner ID - [id number] 05:40:46 Test Item Value Reference Range Interpretation Comments MAGNESIUM (BEAKER) (test code = 2.9 mg/dL 1.6-2.6 H 627) Lace Pinner ID - [id number] 05:40:46 Test Item Value Reference Range Interpretation Comments PHOSPHORUS (BEAKER) (test code = 6.5 mg/dL 2.3-4.7 H 604) Lace Pinner ID - ADMINCBC W/PLT COUNT & AUTO [id number] 05:38:35 Test Item Value Reference Range Interpretation [...] PERCENT (BEAKER) (test code = 2801) POCT-GLUCOSE [id number] 23:35:25 Test Item Value Reference Range Interpretation Comments POC-GLUCOSE METER 135 mg/dL 70-110 H : TESTED A T [facility] 6720 (BEAKER) (test code = [facility], 1538) 330[address]: Lace Pinner/Techni smiley ID = [id number] for Teresa Rose POCT-GLUCOSE [id number] 17:28:48 Test Item Value Reference Range Interpretation Comments POC-GLUCOSE METER 101 mg/dL 70-110 : TESTED A T [facility] 6720 (BEAKER) (test code = [facility], 1538) 60719: Lace Pinner/Techni smiley ID = [id number] for CIRA HUMPHREY BLOOD [id number] 17:00:30 Test Item Value Reference Range Interpretation Comments CULTURE (BEAKER) (test No growth in 5 days code = 1095) BLOOD [id number] 17:00:30 Test Item Value Reference Range Interpretation Comments CULTURE (BEAKER) (test No growth in 5 days code = 1095) XR ABDOMEN/KUB 1 VIEW [id number] 14:17:07 [facility] 1975 Sex: FXR ABDOMEN/KUB 1 VIEW PORTABLETECHNIQUE: Supine radiograph(s) of the abdomen and pelvis.HISTORY: corpak placementCOMPARISON: 12/04/2022IMPRESSION:Lines and tubes: Enteric tube is seen with tip in the stomachElectronically Signed By: Sarah Carrera11/05/2022 14:19 CDTWorkstation Name: [id number] 12:53:33 Test Item Value Reference Range Interpretation Comments POC-GLUCOSE METER 88 mg/dL 70-110 : TESTED A T [facility] 6720 (BEAKER) (test code = [facility], 1538) [address]: Lace Pinner/Techni smiley ID = [id number] for CIRA ROLAND POCT-GLUCOSE [id number] 06:25:50 Test Item Value Reference Range Interpretation Comments POC-GLUCOSE METER 110 mg/dL 70-110 : TESTED A T [facility] 6720 (BEAKER) (test code = [facility], 1538) [address]: Lace Pinner/Techni smiley ID = [id number] for NADEGE IVEY BASIC METABOLIC [id number] 04:16:53 Test Item Value Reference Range Interpretation [...] not appl icable for dialysis patien ts Lace Pinner ID Gisele STEEL [id number] 04:16:53 Test Item Value Reference Range Interpretation Comments MAGNESIUM (BEAKER) (test code = 2.8 mg/dL 1.6-2.6 H 627) Lace Pinner ID Gisele STEEL [id number] 04:16:53 Test Item Value Reference Range Interpretation Comments PHOSPHORUS (BEAKER) (test code = 5.7 mg/dL 2.3-4.7 H 604) Lace Pinner ID Gisele [employer] WCBC W/PLT COUNT & AUTO [id number] 03:44:05 Test Item Value Reference Range Interpretation [...] PERCENT (BEAKER) (test code = 2801) POCT-GLUCOSE [id number] 23:25:33 Test Item Value Reference Range Interpretation Comments POC-GLUCOSE METER 114 mg/dL 70-110 H : TESTED A T [facility] 6720 (BEAKER) (test code = [facility] [place], 1538) [address]: Lace Pinner/Techni smiley ID = [id number] for NADEGE IVEY [id number] 18:58:11 Test Item Value Reference Range Interpretation Comments SODIUM (BEAKER) (test code = 381) 142 meq/L 136-145 Lace Pinner ID - JSPOCT-GLUCOSE [id number] 17:04:52 Test Item Value Reference Range Interpretation Comments POC-GLUCOSE METER 142 mg/dL 70-110 H : TESTED A T [facility] 6720 (BEAKER) (test code = [facility], 1538) [address]: Lace Pinner/Techni smiley ID = [id number] for MANDA ESPARZA POCT-GLUCOSE [id number] 12:43:34 Test Item Value Reference Range Interpretation Comments POC-GLUCOSE METER 127 mg/dL 70-110 H : TESTED A T [facility] 6720 (BEAKER) (test code = [facility], 1538) 55[address]: Lace Pinner/Techni smiley ID = [id number] for MANDA ESPARZA [id number] 12:42:31 Test Item Value Reference Range Interpretation Comments SODIUM (BEAKER) (test code = 381) 141 meq/L 136-145 Lace Pinner ID - JSPOCT-GLUCOSE [id number] 05:53:11 Test Item Value Reference Range Interpretation Comments POC-GLUCOSE METER 122 mg/dL 70-110 H : TESTED A T [facility] 6720 (BEAKER) (test code = [facility], 1538) [address]: Lace Pinner/Techni smiley ID = [id number] for NADEGE IVEY [id number] 04:57:58 Test Item Value Reference Range Interpretation Comments PHOSPHORUS (BEAKER) 6.1 mg/dL 2.3-4.7 H Specimen slightly (test code = 604) hemolyzed Lace Pinner ID - DAMIÁN WBASIC METABOLIC [id number] 04:57:58 Test Item Value Reference Range Interpretation [...] not appl icable for dialysis patien ts Lace Pinner ID - DAMIÁN [id number] 04:57:57 Test Item Value Reference Range Interpretation Comments MAGNESIUM (BEAKER) 2.7 mg/dL 1.6-2.6 H Specimen slightly (test code = 627) hemolyzed Lace Pinner ID - DAMIÁN WCBC W/PLT COUNT & AUTO [id number] 04:36:11 Test Item Value Reference Range Interpretation [...] PERCENT (BEAKER) (test code = 2801) POCT-GLUCOSE [id number] 00:26:17 Test Item Value Reference Range Interpretation Comments POC-GLUCOSE METER 117 mg/dL 70-110 H : TESTED A T [facility] 6720 (BEAKER) (test code = [facility], 153) [address]: Lace Pinner/Techni smiley ID = [id number] for NADEGE IVEY [id number] 19:29:04 Test Item Value Reference Range Interpretation Comments SODIUM (BEAKER) (test code = 381) 141 meq/L 136-145 Lace Pinner ID - ADMINPOCT-GLUCOSE [id number] 16:58:24 Test Item Value Reference Range Interpretation Comments POC-GLUCOSE METER 142 mg/dL 70-110 H : TESTED A T [facility] 6720 (BEAKER) (test code = [facility], 153) [address]: Lace Pinner/Techni smiley ID = [id number] for MANDA ESPARZA XR ABDOMEN/KUB 1 VIEW [id number] 13:01:43 [facility] : 1975 Sex: FAbdomen , one viewHistory:Feeding tube placementComparison:10/30/2022Findings:Tip of the feeding tube is near the pylorus. Nonobstructive bowel gaspattern. Cholecystectomy clips within the right upper quadrant.Electronically Signed By: Kam Gonzalez MD11/03/2022 13:03 CDTWorkstation Name: [id number] 12:39:24 Test Item Value Reference Range Interpretation Comments SODIUM (BEAKER) (test code = 381) 142 meq/L 136-145 POCT-GLUCOSE [id number] 12:05:03 Test Item Value Reference Range Interpretation Comments POC-GLUCOSE METER 118 mg/dL 70-110 H : TESTED A T [facility] 6720 (BEAKER) (test code = [facility], 1538) [address]: Lace Pinner/Techni smiley ID = [id number] for MANDA ESPARZA [id number] 06:17:11 Test Item Value Reference Range Interpretation Comments PHOSPHORUS (BEAKER) (test code = 4.1 mg/dL 2.3-4.7 604) Lace Pinner ID - DAMIÁN WBASIC METABOLIC [id number] 06:17:10 Test Item Value Reference Range Interpretation [...] not appl icable for dialysis patien ts Lace Pinner ID - DAMIÁN [id number] 06:17:10 Test Item Value Reference Range Interpretation Comments MAGNESIUM (BEAKER) (test code = 2.4 mg/dL 1.6-2.6 627) Lace Pinner ID - DAMIÁN WPOCT-GLUCOSE [id number] 05:50:21 Test Item Value Reference Range Interpretation Comments POC-GLUCOSE METER 121 mg/dL 70-110 H : TESTED A T [facility] 6720 (BEAKER) (test code = [facility], 1538) [address]: Lace Pinner/Techni smiley ID = [id number] for NADEGE IVEY CBC W/PLT COUNT & AUTO [id number] 05:25:22 Test Item Value Reference Range Interpretation [...] PERCENT (BEAKER) (test code = 2801) POCT-GLUCOSE [id number] 23:36:51 Test Item Value Reference Range Interpretation Comments POC-GLUCOSE METER 116 mg/dL 70-110 H : TESTED Oscar T [facility] 6720 (BEAKER) (test code = [facility] [place], 1538) [address]: Lace Pinner/Techni smiley ID = [id number] for JODI PENELOPE JAVEDJAY [id number] 18:30:49 Test Item Value Reference Range Interpretation Comments SODIUM (BEAKER) (test code = 381) 141 meq/L 136-145 Lace Pinner ID - ADMINPOCT-GLUCOSE [id number] 17:57:14 Test Item Value Reference Range Interpretation Comments POC-GLUCOSE METER 118 mg/dL 70-110 H : TESTED A T [facility] 6720 (BEAKER) (test code = AVINASH Dunn [facility], 1538) [address]: Lace Pinner/Techni smiley ID = [id number] for An Donna lucas MRSA [id number] 14:39:15 Test Item Value Reference Range Interpretation Comments CULTURE (BEAKER) (test code No MRSA isolated = 1095) [id number] 13:35:39 Test Item Value Reference Range Interpretation Comments SODIUM (BEAKER) (test code = 381) 139 meq/L 136-145 Lace Pinner ID - BVPOCT-GLUCOSE [id number] 13:06:41 Test Item Value Reference Range Interpretation Comments POC-GLUCOSE METER 134 mg/dL 70-110 H : TESTED A T [facility] 6720 (BEAKER) (test code = [facility], 1538) [address]: Lace Pinner/Techni smiley ID = [id number] for An Donna lucas CT BRAIN WITHOUT IV [id number] 13:00:59 [facility] 1975 Sex: FCT [...] disease.IMPRESSION:Increase mass effect related to 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 New leftward subfalcineherniation. Early entrapment of the left lateral ventricle.If there is persistent clinical concern for intracranial pathology, MRexamination is recommended for further characterization.Electronically Signed By: Alexandra Liang11/02/2022 13:03 CDTWorkstation Name: [id number] 06:29:29 Test Item Value Reference Range Interpretation Comments SODIUM (BEAKER) (test code = 381) 139 meq/L 136-145 BASIC METABOLIC [id number] 06:29:28 Test Item Value Reference Range Interpretation [...] not appl icable for dialysis patien ts Lace Pinner ID - [id number] 06:29:28 Test Item Value Reference Range Interpretation Comments MAGNESIUM (BEAKER) (test code = 2.2 mg/dL 1.6-2.6 627) Lace Pinner ID - [id number] 06:29:28 Test Item Value Reference Range Interpretation Comments PHOSPHORUS (BEAKER) (test code = 3.8 mg/dL 2.3-4.7 604) Lace Pinner ID - MARCOPOCT-GLUCOSE [id number] 06:21:55 Test Item Value Reference Range Interpretation Comments POC-GLUCOSE METER 125 mg/dL 70-110 H : TESTED A T [facility] 6720 (BEAKER) (test code = [place], 1538) [address]: Lace Pinner/Techni smiley ID = [id number] for NADEGE IVEY CBC W/PLT COUNT & AUTO [id number] 06:08:00 Test Item Value Reference Range Interpretation [...] PERCENT (BEAKER) (test code = 2801) POCT-GLUCOSE [id number] 00:19:06 Test Item Value Reference Range Interpretation Comments POC-GLUCOSE METER 99 mg/dL 70-110 : TESTED A T [facility] 6720 (BEAKER) (test code = AVINASH [facility], 1538) [address]: Lace Pinner/Techni smiley ID = [id number] for NADEGE MORAELS [id number] 18:45:56 Test Item Value Reference Range Interpretation Comments SODIUM (BEAKER) (test code = 381) 140 meq/L 136-145 Lace Pinner ID - ADMPOCT-GLUCOSE [id number] 18:39:21 Test Item Value Reference Range Interpretation Comments POC-GLUCOSE METER 121 mg/dL 70-110 H : TESTED A T [facility] 6720 (BEAKER) (test code [facility], = 1538) [address]: Lace Pinner/Techni smiley ID = [id number] for Latonia Connolly [id number] 14:24:36 Test Item Value Reference Range Interpretation Comments SODIUM (BEAKER) (test code = 381) 140 meq/L 136-145 Lace Pinner ID - [id number] 10:06:02 Test Item Value Reference Range Interpretation Comments POTASSIUM (BEAKER) (test code = 3.8 meq/L 3.5-5.1 379) Lace Pinner ID - [id number] 10:06:01 Test Item Value Reference Range Interpretation Comments MAGNESIUM (BEAKER) (test code = 2.3 mg/dL 1.6-2.6 627) Lace Pinner ID - ADMVANCOMYCIN LEVEL, [id number] 09:59:39 Test Item Value Reference Range Interpretation Comments VANCOMYCIN TROUGH (BEAKER) (test 8.4 ug/mL 10.0-20.0 L code = 522) Lace Pinner ID - [id number] 04:21:26 Test Item Value Reference Range Interpretation Comments MAGNESIUM (BEAKER) (test code = 2.0 mg/dL 1.6-2.6 627) Lace Pinner ID - [id number] 04:21:26 Test Item Value Reference Range Interpretation Comments PHOSPHORUS (BEAKER) (test code = 3.2 mg/dL 2.3-4.7 604) Lace Pinner ID - ADMINBASIC METABOLIC [id number] 04:21:25 Test Item Value Reference Range Interpretation [...] not appl icable for dialysis patien ts Lace Pinner ID - ADMINCBC W/PLT COUNT & AUTO [id number] 03:36:42 Test Item Value Reference Range Interpretation [...] 0.00-1.00 PERCENT (BEAKER) (test code = 2801) [id number] 00:11:29 Test Item Value Reference Range Interpretation Comments SODIUM (BEAKER) (test code = 381) 139 meq/L 136-145 Lace Pinner ID - [id number] 18:25:44 Test Item Value Reference Range Interpretation Comments SODIUM (BEAKER) (test code = 381) 139 meq/L 136-145 Lace Pinner ID - esauSARS-COV2/INFLUENZA/RSV [id number] 14:03:24 Test Item Value Reference Range Interpretation Comments SARS-COV2/RT-PCR Negative Negative The SARS-Co V-2 target (test code = nucleic acids a re not 7013927) detected in thi s specimen. Negat yesika [...] individuals amanda pected of COVID-19 by the [facility] ide. INFLUENZA A RT-PCR Negative Negative The Flu A target nucleic (test code = acids are not d etected in 3254223) this specimen. INFLUENZA B RT-PCR Negative Negative The Flu B target nucleic (test code = acids are not d etected in 19100422) this specimen. RSV RT-PCR (test Negative Negative The RSV tar get nucleic code = 0239857) acids are no t detected in this [...] Xpress SARS-CoV-2/Flu/RSV by their healthcareprovider. Results from [facility] Xpert Xpress SARS-CoV-2/Flu/RSV test should be [...] of the Act.Fact Sheet for Healthcare Providers:https ://www.[employer].[place]/Documents/Xpert%20Xpress%20SARS%20CoV-2/Fact%20Sheets/302-390 2%78DNZH-SPM-0%20HEALTHCARE%20PROVIDERS%20FACT%20SHEET.pdfFact Sheet for Healthcare Patients:https://www.[employer]/Docum ents/Xpert%20Xpress%20SARS%20Cov-2/Fact%20Sheets/3023801%85GQCP-CIG-2%20PATIENT %20FACT%20SHEET.[id number] 12:52:25 Test Item Value Reference Range Interpretation Comments SODIUM (BEAKER) (test code = 381) 135 meq/L 136-145 L Lace Pinner ID - [id number] 12:52:24 Test Item Value Reference Range Interpretation Comments MAGNESIUM (BEAKER) (test code = 2.4 mg/dL 1.6-2.6 627) Lace Pinner ID - esauPOCT-GLUCOSE [id number] 12:00:51 Test Item Value Reference Range Interpretation Comments POC-GLUCOSE METER 130 mg/dL 70-110 H : [facility] ([facility]ER[facility] (test code [facility], = 1538) [address]: Lace Pinner/Techni smiley ID = [id number] for Latonia Connolly B-TYPE NATRIURETIC FACTOR (BNP)2022-10-31 10:43:21 Test Item Value Reference Range Interpretation Comments B-TYPE NATRIURETIC PEPTIDE (BEAKER) 568 pg/mL 0-100 H (test code = 700) Lace Pinner ID - [id number] 05:07:29 Test Item Value Reference Range Interpretation Comments MAGNESIUM (BEAKER) (test code = 1.9 mg/dL 1.6-2.6 627) Lace Pinner ID - [id number] 05:07:29 Test Item Value Reference Range Interpretation Comments PHOSPHORUS (BEAKER) (test code = 3.7 mg/dL 2.3-4.7 604) Lace Pinner ID - ADMINBASIC METABOLIC [id number] 05:07:28 Test Item Value Reference Range Interpretation [...] not appl icable for dialysis patien ts Lace Pinner ID - ADMINCBC W/PLT COUNT & AUTO [id number] 04:47:13 Test Item Value Reference Range Interpretation [...] 0.00-1.00 PERCENT (BEAKER) (test code = 2801) [id number] 23:06:40 Test Item Value Reference Range Interpretation Comments SODIUM (BEAKER) (test code = 381) 133 meq/L 136-145 L Lace Pinner ID - ADMINHIGH SENSITIVITY TROPONIN [id number] 22:59:43 Test Item Value Reference Range Interpretation Comments HIGH SENSITIVITY 92 pg/ml See_Comment H [Automated message] TROPONIN I (test code = The system which [id number]) generated this result transmitted ref erence range: <=17. Th e reference range was not used to int erpret this result as normal/abnormal . Lace Pinner ID - ADMINThe [employer] STAT High Sensitivity Troponin-I results should be used in conjunction with other diagnostic information such as ECG, clinical observations and information, and patientsymptoms to aid in the diagnosis of NH. XR ABDOMEN/KUB 1 VIEW [id number] 18:54:45 [facility] 1975 Sex: FTECHNIQUE: XR ABDOMEN/KUB 1 VIEW PORTABLEINDICATION: corpak placement.COMPARISON: 10/29/2022FINDINGS:Feeding tube tip projecting over the body of the stomach. No specificevidence for bowel obstruction. Cholecystectomy clips are noted. Supineradiographs are insensitive for detection of free intraperitoneal ai r.IMPRESSION:Feeding tube tip projects over the body of the stomach.Electronically Signed By: Mo Soares10/30/2022 18:56 CDTWorkstation Name: [id number] SENSITIVITY TROPONIN [id number] 17:30:01 Test Item Value Reference Range Interpretation Comments HIGH SENSITIVITY 123 pg/ml See_Comment H [Automated message] TROPONIN I (test code The sy stem which = 3164671) generated this result transmitted ref erence range: <=17. Th e reference range was not used to int erpret this result as normal/abnormal . Lace Pinner ID - BSThe [employer] STAT High Sensitivity Troponin-I results should be used in conjunctionwith other diagnostic information such as ECG, clinical observations and information, and patient symptoms to aid in the diagnosis of NH.LACTIC ACID, [id number] 17:25:59 Test Item Value Reference Range Interpretation Comments LACTATE BLOOD ARTERIAL (2) 1.0 mmol/L 0.5-2.0 (BEAKER) (test code = 2874) Lace Pinner ID - [id number] 17:21:36 Test Item Value Reference Range Interpretation Comments SODIUM (BEAKER) (test code = 381) 136 meq/L 136-145 Lace Pinner ID - ADMINBLOOD GAS, [id number] 14:46:08 Test Item Value Reference Range Interpretation [...] FIO2 (BEAKER) (test code = 1819) 100.0 [id number] 12:47:53 Test Item Value Reference Range Interpretation Comments SODIUM (BEAKER) (test code = 381) 137 meq/L 136-145 Lace Pinner ID - JSLACTIC ACID, [id number] 12:47:37 Test Item Value Reference Range Interpretation Comments LACTATE BLOOD 2.3 mmol/L 0.5-2.0 H Specimen sligh tly ARTERIAL (2) (BEAKER) hemoly zed (test code = 2874) Lace Pinner ID - JSBLOOD GAS, [id number] 12:23:19 Test Item Value Reference Range Interpretation [...] FIO2 (BEAKER) (test code = 1819) 100.0 [id number] 11:15:25 Test Item Value Reference Range Interpretation Comments PROCALCITONIN (BEAKER) (test code 0.05 ng/mL <0.05 H = 3036) SEPSIS RISK (ng/mL)Low: 0.05-0.50Intermediate: 0.51-2.00High: >=2.01HIGH SENSITIVITY TROPONIN [id number] 11:10:59 Test Item Value Reference Range Interpretation Comments HIGH SENSITIVITY 139 pg/ml See_Comment H [Automated message] TROPONIN I (test code The arvind dsouza which = 3158401) generated this result transmitted ref erence range: <=17. Th e reference range was not used to int erpret this result as normal/abnormal . Lace Pinner ID - JSThe [employer] STAT High Sensitivity Troponin-I results should be used in conjunctionwith other diagnostic information such as ECG, clinical observations and information, and patient symptoms to aid in the diagnosis of NH.XR CHEST 1 VIEW PORTABLE / [id number] 10:47:01 [facility] : 1975 Sex: FCLINICAL HISTORY: desaturationTECHNIQUE: 1 view of the chest.COMPARISON: 10/29/2022IMPRESSION:ETT no longer seen. New feeding tube below the diaphragm. Right centralline remains in the right atrium. There are mildly increased bilaterallower lung airspace opacities with blunting of both costophrenic angles.The cardiomediastinal silhouette is magnified by technique.Electronically Signed By: Yeyo Mills10/30/2022 10:49 CDTWorkstation Name: [id number] BRAIN WITHOUT IV [id number] 09:21:03 [facility] : 1975 Sex: FCT [...] Signed By: Luís Mclain10/30/2022 09:23 CDTWorkstation Name: [id number] 04:21:01 Test Item Value Reference Range Interpretation Comments PHOSPHORUS (BEAKER) (test code = 3.2 mg/dL 2.3-4.7 604) Lace Pinner ID - EMBASIC METABOLIC [id number] 04:21:00 Test Item Value Reference Range Interpretation [...] not appl icable for dialysis patien ts Lace Pinner ID - [id number] 04:21:00 Test Item Value Reference Range Interpretation Comments MAGNESIUM (BEAKER) (test code = 1.7 mg/dL 1.6-2.6 627) Lace Pinner ID - EMCBC W/PLT COUNT & AUTO [id number] 03:30:03 Test Item Value Reference Range Interpretation [...] 0.00-1.00 PERCENT (BEAKER) (test code = 2801) [id number] 00:34:48 Test Item Value Reference Range Interpretation Comments SODIUM (BEAKER) (test code = 381) 137 meq/L 136-145 Lace Pinner ID - ADMINXR ABDOMEN/KUB 1 VIEW [id number] 18:55:43 [facility] : 1975 Sex: FTECHNIQUE: [...] Signed By: Mo Soares10/29/2022 18:57 CDTWorkstation Name: [id number] 2022-10-29 18:31:20 Test Item Value Reference Range Interpretation Comments SODIUM (BEAKER) (test code = 381) 138 meq/L 136-145 Lace Pinner ID - ADMINCREATININE, RANDOM [id number] 15:21:04 Test Item Value Reference Range Interpretation Comments CREATININE URINE (BEAKER) (test 24.5 mg/dL code = 375) Reference Range: No NormalsOperator ID - ADMINRAPID DRUG SCREEN, [id number] 14:06:15 Test Item Value Reference Range Interpretation [...] situations. Chain of custody not maintained. Some rwxk-kji-lsbysgn medications, as well as adulterants, may cause inaccurate results. Clinical correlation should be applied. A more comprehensive drug screen or confirmation of a detected drug may be performed upon request.Lace Pinner ID - JSOperatorID - [auto] HEMOGLOBIN [id number] 13:23:17 Test Item Value Reference Range Interpretation Comments HEMOGLOBIN A1C 4.5 % See_Comment [Automated m essage] ELECTROPHORESIS (BEChemDAQ) The system which (test code = 3811) generated this result transmitted ref erence range: <=5.6%. The reference range was not used to int erpret this result as normal/abnormal . "The A1c is measured using a NGSP-certified method. HbA1c value equal to or greater than 6.5% as thediagnosis cutoff for diabetes. An HbA1c value of 5.7- 6.4% indicates increased risk for diabetes (prediabetes)."Lace Pinner ID - ADMOperator ID - ADMCTA [id number] 13:16:45 [facility] : 1975 Sex: FCT BRAIN WITHOUT IV CONTRAST, CTA CAROTID, CTA BRAINBRAIN CT WITHOUT CONTRASTINDICATION: Unlisted Reason for Exam, intraparenchymal hematomaCOMPARISON: NoneTECHNIQUE:Rapid acquisition spiral images were obtained between the aortic archand the cranial vertex during intravenous contrast infusion toreconstruct axial images and angiographic 3D maximum intensityprojections (MIP). 3-D volumetric reformatted images were created at [employer] workstation. Precontrast images of the brain were [...] Signed By: Luís Mclain10/29/2022 13:18 CDTWorkstation Name: [id number] BRAIN WITHOUT IV [id number] 13:16:45 [facility] 1975 Sex: FCT BRAIN WITHOUT IV CONTRAST, CTA CAROTID, CTA BRAINBRAIN CT WITHOUT CONTRASTINDICATION: Unlisted Reason for Exam, intraparenchymal hematomaCOMPARISON: NoneTECHNIQUE:Rapid acquisition spiral images were obtained between the aortic archand the cranial vertex during intravenous contrast infusion toreconstruct axial images and angiographic 3D maximum intensityprojections (MIP). 3-D volumetric reformatted images were created at [employer] workstation. Precontrast images of the brain were [...] Signed By: Luís Mclain10/29/2022 13:18 CDTWorkstation Name: [id number] 13:16:45[facility] : 1975 Sex: FCT BRAIN WITHOUT IV CONTRAST, CTA CAROTID, CTA BRAINBRAIN CT WITHOUT CONTRASTINDICATION: Unlisted Reason for Exam, intraparenchymal hematomaCOMPARISON: NoneTECHNIQUE:Rapid acquisition spiral images were obtained between the aortic archand the cranial vertex during intravenous contrast infusion toreconstruct axial images and angiographic 3D maximum intensityprojections (MIP). 3-D volumetric reformatted images were created at [employer] workstation. Precontrast images of the brain were [...] Signed By: Luís Mclain10/29/2022 13:18 CDTWorkstation Name: [id number], QUANTITATIVE, [id number] 13:15:24 Test Item Value Reference Range Interpretation Comments GONADOTROPIN, CHORIONIC (HCG) QUANT < mIU/mL 0-10 (BEAKER) (test code = 649) Non- Females: <10 mIU/mL Females: Gestation Age Reference Range(mIU/mL) 0.2-1 Week 5-50 1-2 Weeks 50-500 2-3 Weeks 100-5,000 3-4 Weeks 500-10,000 4-5 Weeks 1,000-50,000 5-6 Weeks 10,000-100,000 6-8 Weeks 15,000- 200,000 2-3 Months 10,000-100,000 Lace Pinner ID - MARCOOSMOLALITY, [id number] 13:07:55 Test Item Value Reference Range Interpretation Comments OSMOLALITY URINE 529 mOsm/kg See_Comment [Automated message] (BEAKER) (test code = The sy stem which 614) generated this result transmitted ref erence range: 50-1,200 mOsm/kg. The reference range was not used to int erpret this result as normal/abnormal . UREA NITROGEN, RANDOM [id number] 12:57:04 Test Item Value Reference Range Interpretation Comments UREA NITROGEN URINE (BEAKER) (test 186 mg/dL code = 538) Reference Range: No NormalsOperator ID - JSSODIUM, RANDOM [id number] 12:57:03 Test Item Value Reference Range Interpretation Comments SODIUM URINE (BEAKER) (test code = 155 meq/L 243) Reference Range: No NormalsOperator ID - JSOSMOLALITY, [id number] 12:52:21 Test Item Value Reference Range Interpretation Comments OSMOLALITY, SERUM (BEAKER) (test 290 mOsm/kg 275-295 code = 615) [id number] 12:52:14 Test Item Value Reference Range Interpretation Comments SODIUM (BEAKER) (test code = 381) 140 meq/L 136-145 Lace Pinner ID - MARCOPREGNANCY SCREEN, [id number] 09:52:55 Test Item Value Reference Range Interpretation Comments TEST URINE (BEAKER) (test Negative Negative code = 583) BLOOD GAS, [id number] 08:02:40 Test Item Value Reference Range Interpretation [...] (BEAKER) (test code = 1819) 40.0 T4, [id number] 06:13:37 Test Item Value Reference Range Interpretation Comments FREE T4 (BEAKER) (test code = 655) 0.90 ng/dL 0.70-1.48 Lace Pinner ID - ADMINTSH/FREE T4 IF [id number] 05:34:42 Test Item Value Reference Range Interpretation Comments THYROID STIMULATING HORMONE 6.331 uIU/mL 0.350-4.940 H (BEAKER) (test code = 772) Lace Pinner ID - [id number] 05:26:57 Test Item Value Reference Range Interpretation Comments MAGNESIUM (BEAKER) (test code = 1.8 mg/dL 1.6-2.6 627) Lace Pinner ID - [id number] 05:26:57 Test Item Value Reference Range Interpretation Comments PHOSPHORUS (BEAKER) (test code = 3.0 mg/dL 2.3-4.7 604) Lace Pinner ID - MARCOCOMPREHENSIVE METABOLIC [id number] 05:26:56 Test Item Value Reference Range Interpretation [...] not appl icable for dialysis patien ts Lace Pinner ID - MARCOXR CHEST 1 VIEW PORTABLE / [id number] 05:03:50 [facility] : 1975 Sex: FXR [...] Signed By: Jaziel Monte10/29/2022 05:05 CDTWorkstation Name: [id number] 04:56:04 Test Item Value Reference Range Interpretation Comments PARTIAL THROMBOPLASTIN TIME 30.4 seconds 22.5-36.0 (BEAKER) (test code = 760) PROTHROMBIN TIME/[id number] 04:55:22 Test Item Value Reference Range Interpretation Comments PROTIME (BEAKER) 13.6 seconds 11.9-14.2 (test code = 759) INR (BEAKER) (test 1.06 See_Comment [Automat ed message] code = 370) The system 5app generated this result transmitted ref erence range: <=5.90. The reference range was not used to int erpret this result as normal/abnormal . RECOMMENDED COUMADIN/WARFARIN INR THERAPY RANGESSTANDARD DOSE: 2.0 - 3.0 Includes: PROPHYLAXIS for venous thrombosis, systemic embolization; TREATMENT for venous thrombosis and/or pulmonary embolus.HIGH RISK: Target INR is 2.5-3.5 for patients with mechanical heart valves.CBC W/PLT COUNT & AUTO [id number] 04:50:18 Test Item Value Reference Range Interpretation [...] (BEAKER) (test code = 2801) BLOOD GAS, [id number] 04:03:20 Test Item Value Reference Range Interpretation [...] (BEAKER) (test code = 1819) 60.0 CALCIUM, [id number] 03:59:22 Test Item Value Reference Range Interpretation Comments CALCIUM IONIZED (BEAKER) (test 1.09 mmol/L 1.12-1.27 L code = 698) PH, BLOOD (BEAKER) (test code = 7.33 1810) Fungus culture + [id number] 08:28:10 Test Item Value Reference Range Interpretation Comments Result (test code = No fungus isolated in 6463-4) 28 days Fungus Smear (test No fungal elements seen code = 1406) [facility] [id number] 08:28:10 Test Item Value Reference Range Interpretation Comments CULTURE (BEAKER) (test No fungus isolated in code = 1095) 28 days FUNGUS SMEAR (BEAKER) No fungal elements seen (test code = 1406) [id number] 05:54:28 Test Item Value Reference Range Interpretation Comments MAGNESIUM (BEAKER) (test code = 1.9 mg/dL 1.6-2.6 627) Lace Pinner ID - [id number] 05:54:28 Test Item Value Reference Range Interpretation Comments PHOSPHORUS (BEAKER) (test code = 5.2 mg/dL 2.3-4.7 H 604) Lace Pinner ID - MARCOBASIC METABOLIC [id number] 05:54:27 Test Item Value Reference Range Interpretation [...] not appl icable for dialysis patien ts Lace Pinner ID - MARCOCBC W/PLT COUNT & AUTO [id number] 05:42:51 Test Item Value Reference Range Interpretation [...] PERCENT (BEAKER) (test code = 2801) CALCIUM, [id number] 05:36:04 Test Item Value Reference Range Interpretation Comments CALCIUM IONIZED (BEAKER) (test 1.12 mmol/L 1.12-1.27 code = 698) PH, BLOOD (BEAKER) (test code = 7.42 1810) Anaerobic [id number] 02:03:45 Test Item Value Reference Range Interpretation Comments Result (test code = No anaerobes isolated 6463-4) [facility] [id number] 02:03:45 Test Item Value Reference Range Interpretation Comments CULTURE (BEAKER) (test No anaerobes isolated code = 1095) STD Panel - CT/GC [id number] 17:37:44 Test Item Value Reference Interpretation Comments Range C. trachomatis NOT DETECTED RNA, TMA (test code = 2219646) N. gonorrhoeae NOT DETECTED REFERENCE RA NGE: NOT RNA, TMA (test DETECTED Meth odology: code = 8060547) Transcriptio n Mediated Amplification ( TMA)to detect RNA. The analytical perf ormance characteristics of thisassay, when used to test SurePat h(TM) specimens haveb een determined by [employer]. Th e modificationsha ve not been cleared or approved by the FDA. This assayhas b een validated pursu ant to the CLIA regula tions andis used for clinical purpos es. For additional information, pl ease refer tohttps://educa tion.[employer]. [place]/faq /JKR281(This li nk is being provided for informational/e ducatio nal purposes on ly.) SUE (test code = Performing Lab SUE) *QDID [facility] [address] [address] Sylvie Gresham MD, PhD [facility] METABOLIC [id number] 16:40:09 Test Item Value Reference Range Interpretation [...] not appl icable for dialysis patien ts Lace Pinner ID - BSOsmolality, [id number] 12:43:16 Test Item Value Reference Range Interpretation Comments Osmolality, Ur (test code 245 See_Comment [ Automated message] = 2695-5) The system 5app generated this result transmitted ref erence range: 50-1,200 mOsm/kg mOsm/kg . The reference range was not used to int erpret this result as normal/abnormal . Lab Interpretation (test Normal code = 36409-0) [facility], [id number] 12:43:16 Test Item Value Reference Range Interpretation Comments OSMOLALITY URINE 245 mOsm/kg See_Comment [Automated message] (BEAKER) (test code = The sy stem which 614) generated this result transmitted ref erence range: 50-1,200 mOsm/kg. The reference range was not used to int erpret this result as normal/abnormal . Sodium, random [id number] 11:48:27 Test Item Value Reference Range Interpretation Comments Sodium Urine (test 82 meq/L code = 2955-3) SUE (test code = Reference Range: No SUE) NormalsOperator ID - ADMIN [facility] Nitrogen, random [id number] 11:48:27 Test Item Value Reference Range Interpretation Comments Urea Nitrogen, Ur 121 mg/dL (test code = 3095-7) SUE (test code = Reference Range: No SUE) NormalsOperator ID - ADMIN [facility] Hospital[facility] [id number] 11:48:27 Test Item Value Reference Range Interpretation Comments SODIUM URINE (BEAKER) (test code = 82 meq/L 243) Reference Range: No NormalsOperator ID - ADMINUREA NITROGEN, RANDOM URINE 2022-08-10 11:48:27 Test Item Value Reference Range Interpretation Comments UREA NITROGEN URINE (BEAKER) (test 121 mg/dL code = 538) Reference Range: No NormalsOperator ID - ADMINCreatinine, random qmybo3837-03-06 11:48:26 Test Item Value Reference Range Interpretation Comments Creatinine, Ur 20.9 mg/dL (test code = 2161-8) SUE (test code = Reference Range: No SUE) NormalsOperator ID - ADMIN [facility] HospitalCREATININE, RANDOM [id number] 11:48:26 Test Item Value Reference Range Interpretation Comments CREATININE URINE (BEAKER) (test 20.9 mg/dL code = 375) Reference Range: No NormalsOperator ID - ADMINWound culture + gram stain 2022-08-10 11:24:49 Test Item Value Reference Range Interpretation Comments Result (test code = No growth 6463-4) Gram Stain Result <1+ gram positive cocci (test code = 1123) in pairs [facility] HospitalWOUND CULTURE + GRAM [id number] 11:24:49 Test Item Value Reference Range Interpretation Comments CULTURE (BEAKER) (test No growth code = 1095) GRAM STAIN RESULT 4+ WBCs (BEAKER) (test code = 1123) GRAM STAIN RESULT <1+ gram positive cocci (BEAKER) (test code = in pairs 54353) T4, [id number] 11:12:44 Test Item Value Reference Range Interpretation Comments FREE T4 (BEAKER) (test code = 655) 1.25 ng/dL 0.70-1.48 Lace Pinner ID - AAHAMIDOSMOLALITY, [id number] 11:11:51 Test Item Value Reference Range Interpretation Comments OSMOLALITY, SERUM (BEAKER) (test 271 mOsm/kg 275-295 L code = 615) TSH/FREE T4 IF [id number] 10:36:27 Test Item Value Reference Range Interpretation Comments THYROID STIMULATING HORMONE 10.385 uIU/mL 0.350-4.940 H (BEAKER) (test code = 772) Lace Pinner ID - PNDRCGBYGFFCMSY2707-45-75 10:30:32 Test Item Value Reference Range Interpretation Comments CORTISOL, TOTAL (BEAKER) (test 11.9 ug/dL 3.7-19.4 code = 2755) Lace Pinner ID - AAJDCT, DRAINAGE, SOFT TISSUE FLUID PLNUWDMLLH8520-48-43 09:56:00Reason for exam:->tubo-ovarian abscess [facility] 1975 Sex: [...] lower quadrant fluid collection. Signed: Nilo Whiteside MDRepsaint luke[facility] Verified Date/Time: 08/10/2022 09:56:28 Reading Location: [address] Neuro Reading Room BASIC METABOLIC [id number] 06:16:41 Test Item Value Reference Range Interpretation [...] not appl icable for dialysis patien ts Lace Pinner ID - ADMINSpecimen slightly cjyvjnpVAQSEDJCK5192-11-42 06:16:41 Test Item Value Reference Range Interpretation Comments MAGNESIUM (BEAKER) 1.9 mg/dL 1.6-2.6 Specimen slightly (test code = 627) hemolyzed Lace Pinner ID - ADMINCBC (HEMOGRAM ONLY)2022-08-10 05:54:45 Test [...] 0-0 CELLS (BEAKER) (test code = 413) [id number] 04:19:50 Test Item Value Reference Range Interpretation Comments MAGNESIUM (BEAKER) (test code = 1.3 mg/dL 1.6-2.6 L 627) Lace Pinner ID - MMBASIC METABOLIC [id number] 04:19:50 Test Item Value Reference Range Interpretation [...] not appl icable for dialysis patien ts Lace Pinner ID - MMSpecimen slightly ictericCBC (HEMOGRAM ONLY)2022-08-09 [...] (BEAKER) (test code = 413) BASIC METABOLIC [id number] 06:27:34 Test Item Value Reference Range Interpretation [...] not appl icable for dialysis patien ts Lace Pinner ID - DAMIÁN WSpecimen slightly ictericB-TYPE NATRIURETIC FACTOR (BNP) 2022-08-08 05:56:50 Test Item Value Reference Range Interpretation Comments B-TYPE NATRIURETIC PEPTIDE (BEAKER) 202 pg/mL 0-100 H (test code = 700) Lace Pinner ID - BSCBC (HEMOGRAM ONLY)2022-08-08 05:36:13 Test [...] (BEAKER) (test code = 413) BASIC METABOLIC [id number] 05:39:11 Test Item Value Reference Range Interpretation [...] not appl icable for dialysis patien ts Lace Pinner ID - ADMINSpecimen slightly ictericCBC (HEMOGRAM ONLY)2022-08-07 [...] 0-0 (BEAKER) (test code = 413) CT, [id number] 07:32:00Unlisted Reason for Exam - Click Yes and Enter Reason Below->NoProtocol Please Specify:->Standard ProtocolWill this procedure require oral contrast?->No [facility] : 1975 Sex: FFINAL [...] increase in size from 07/30/2022. Signed: Kam Gonzalez MDReport Verified Date/Time: 08/06/2022 07:32:46 Reading Locatio n: [facility] Diagnostic Imaging Reading Room - [facility] F1 1129 Electronically signed by: Marti GUTIERREZ 08/06/2022 07:32 AMPregnancy Screen, [id number] 21:59:05 Test Item Value Reference Range Interpretation Comments Preg Test, Ur (test code = 2112-1) Negative Negative Lab Interpretation (test code = Normal 08390-8) [facility] HospitalPREGNANCY SCREEN, [id number] 21:59:05 Test Item Value Reference Range Interpretation [...] CONCENTRATION Adequate (CELLAVISION)(BEAKER) (test code = 3438) Lace Pinner ID - Salena comments: Slide comments:BASIC METABOLIC [...] not appl icable for dialysis patien ts Lace Pinner ID - ADMINSpecimen slightly ictericPROTHROMBIN TIME/[id number] 21:25:45 Test Item Value Reference Range Interpretation [...] mechanical heart valves.CBC W/PLT COUNT & AUTO [id number] 21:20:49 Test Item Value Reference Range Interpretation [...] (BEAKER) (test code = 413) Transthoracic echo pemklw2731-13-34 16:18:18Ejection FractionSLEH ECHO HEARTLAB MKCKESSON [facility] HospitalBAS[facility]IC [id number] 05:26:56 Test Item Value Reference Range Interpretation [...] not appl icable for dialysis patien ts Lace Pinner ID - MMSpecimen slightly ictericCBC (HEMOGRAM ONLY)2022-08-03 [...] CONCENTRATION Decreased (CELLAVISION)(BEAKER) (test code = 3438) Lace Pinner ID - Salena comments: Slide comments:CBC W/PLT COUNT & AUTO [id number] 14:52:12 Test Item Value Reference Range Interpretation [...] (BEAKER) (test code = 413) BASIC METABOLIC [id number] 13:40:34 Test Item Value Reference Range Interpretation [...] not appl icable for dialysis patien ts Lace Pinner ID - ADMINSpecimen moderately ictericMYOCARD IMAGING, MULTI, PHARM, [id number] 15:12:00Unlisted Reason for Exam - Click Yes and Enter Reason Below->NoCH[facility] : 1975 Sex: FFINAL REPORT PROCEDURE: MYOCARDIAL PERFUSION SPECT IMAGING (Rest/Stress)CPT CODE: 64696 INDICATION: Cardiac screening, high CAD risk CARDIOVASCULAR [...] . "The A1c is measured using a [facility]-certified method. HbA1c value equal to or greater than 6.5% as thediagnosis cutoff for diabetes. An HbA1c value of 5.7- 6.4% indicates increased risk for diabetes (prediabetes)."Lace Pinner ID - ADM (CELLAVISION MANUAL DIFF)2022-08-01 08:26:35 [...] CONCENTRATION Decreased (CELLAVISION)(BEAKER) (test code = 3438) Lace Pinner ID - Remy Deandreo-onUser comments: Slide comments:CBC W/PLT COUNT & AUTO USCFYRRRQOEV2472-06-20 08:26:34 Test Item Value Reference Range Interpretation [...] (BEAKER) (test code = 413) HCG, QUANTITATIVE, [id number] 05:48:18 Test Item Value Reference Range Interpretation Comments GONADOTROPIN, CHORIONIC (HCG) QUANT < mIU/mL 0-10 (BEAKER) (test code = 649) Non- Females: <10 mIU/mL Females: Gestation Age Reference Range(mIU/mL) 0.2-1 Week 5-50 1-2 Weeks 50-500 2-3 Weeks 100-5,000 3-4 Weeks 500-10,000 4-5 Weeks 1,000-50,000 5-6 Weeks 10,000-100,000 6-8 Weeks 15,000- 200,000 2-3 Months 10,000-100,000 Lace Pinner KURT VIDALESBASIC METABOLIC PANEL 2022-08-01 05:41:39 Test Item Value [...] not appl icable for dialysis patien ts Lace Pinner ID [employer] WSpecimen moderately acadkxfXTIHDZWRV3791-98-94 05:41:38 Test Item Value Reference Range Interpretation Comments MAGNESIUM (BEAKER) (test code = 1.7 mg/dL 1.6-2.6 627) Lace Pinner ID [employer] VMSHXEMLWIG9991-65-66 05:41:38 Test Item Value Reference Range Interpretation Comments PHOSPHORUS (BEAKER) (test code = 3.0 mg/dL 2.3-4.7 604) Lace Pinner [employer] WPT/SZFT4752-72-52 05:39:59 Test Item Value Reference Range Interpretation [...] 2.5-3.5 for patients with mechanical heart valves.LIPID [id number] 22:24:08 Test Item Value Reference Range Interpretation [...] Borderline 130-159 High 160-189 Very High >=190 Lace Pinner ID - EGMDGV764Wtlbwhwc ID - VEGFGD070Pivdcmuv ID - DYKCZF138Fosjcxzs slightly icteric U/S, ENDOVAGINAL (EV)2022-07-31 14:38:00Reason for exam:->concern for [facility] 1975 Sex: FFINAL [...] follow-up imaging with ultrasound. Signed: Shauna Duran MDRepsaint [facility] Verified Date/Time: 07/31/2022 14:38:44 U/S, [id number] 14:38:00Reason for exam:->concern [facility] : 1975 Sex: FFINAL [...] follow-up imaging with ultrasound. Signed: Shauna Duran [facility] Verified Date/Time: 07/31/2022 14:38:44 U/S, DUPLEX, [id number] 14:38:00 [facility] 1975 Sex: FFINAL [...] follow-up imaging with ultrasound. Signed: Shauna Duran [facility] Verified Date/Time: 07/31/2022 14:38:44 CBC W/PLT COUNT & AUTO [id number] 03:57:39 Test Item Value Reference Range Interpretation [...] H PERCENT (BEAKER) (test code = 2801) [id number] 03:56:52 Test Item Value Reference Range Interpretation Comments MAGNESIUM (BEAKER) (test code = 1.5 mg/dL 1.5-3.0 627) Lace Pinner ID - XUNM87Zxwocgum ID - TZBQ46Rhnczpfn ID - VEXI37Dyygceig ID - ZNMP04 BASIC METABOLIC [id number] 03:55:31 Test Item Value Reference Range Interpretation [...] as accur ate as Creatinine María Elena ptitman in predicting glom erular filtration rate . Estimated GFR is not appl icable for dialysis patien ts Lace Pinner ID - HMTN02Iplkaveh ID - WSBR83Jyutgtdu ID - RKQB90Qpbddfnb ID - FWOP61Iebdfydk ID - YOBB87Gxxkulyy ID - QLJA90Vsnybmtx ID - CDTT29Yfimoyjk ID - FHXJ24Nacrpdya ID - BDKK45Ufofiicz slightly ycpofbjPTCVJKBZJU4225-12-43 03:54:07 Test Item Value Reference Range Interpretation Comments PHOSPHORUS (BEAKER) (test code = 4.0 mg/dL 2.5-4.5 604) Lace Pinner ID - [id number] 18:37:08 Test Item Value Reference Range Interpretation Comments MAGNESIUM (BEAKER) (test code = 1.6 mg/dL 1.5-3.0 627) Lace Pinner ID - NBXNM590Lmyhhifj ID - YOFER172Sufrzkcu ID - KYLQA484Mclxvgoz ID - ABSJK684KXZ, CHEST, 1 VIEW, NON [id number] 16:51:00Reason for exam:->SOB, wheezingShould this be performed at the bedside?->Yes [facility] : 1975 Sex: FFINAL [...] MDReport Verified Date/Time: 07/30/2022 16:51:52 Reading Location: [facility] Radiology Reading Room BASI METABOLIC PANEL 2022-07-30 [...] not appl icable for dialysis patien ts Lace Pinner ID - EQGZP323Aswrccwy ID - XOUFC888Oqqccwne ID - SPILG817Liuucyhz ID - TGHDA668Eqmtjcex ID - CQKKU207Ewqdneaz ID - KMNPH937Pzvvqmsf ID - AZQHG780Cidbtwps ID - TNOVX114Ypisjcdz ID - QIWIG960Qiizuvbx ID - IKBDY982Onhllnmj ID - LZKVO100Cvsytvzi ID - POEFB534UDHZGWDJQMT TIME/INR 2022-07-30 16:00:01 Test Item Value Reference [...] mechanical heart valves.CBC W/PLT COUNT & AUTO [id number] 15:52:31 Test Item Value Reference Range Interpretation [...] PERCENT (BEAKER) (test code = 2801) TISSUE [id number] 12:09:00Surgical Pathology Report Case: [id number] Authorizing Provider: Trudy James MD Collected: 02/17/2019 1126 Ordering Location: [address] Received: 02/17/2019 1147 Service Pathologist: Angela Beach MD Specimen: Gallbladder A. GALLBLADDER, CHOLECYSTECTOMY: - CHRONIC CHOLECYSTITIS WITH CHOLELITHIASIS. Signing Pathologist Direct Phone Line: [phone] signed by Angela Beach MD on 02/19/2019 at 12:09 VH23542Gzhi renal mass Gallbladder Received in formalin labeled [...] and trabeculated. Thewall measures 0.2 cm thick. Historic Preservationist sections are submitted in A1-A2, with the inked proximal margin is A1. PA/ew Performed.[facility], Department of Pathology, [address] [place] [address], WqehswGlendora Community Hospital, Department of Pathology, [address] [place], [place] [id number], DgcusmGlendora Community Hospital, Department of Pathology, [address] [place] [address], XSK W/PLT COUNT & AUTO [id number] 07:03:00 Test Item Value Reference Range Interpretation [...] (BEAKER) (test code = 2801) BASIC METABOLIC [id number] 06:57:00 Test Item Value Reference Range Interpretation [...] APPLICABLE FOR DIALYSIS PATIEN TS. HEPATIC FUNCTION [id number] 06:57:00 Test Item Value Reference Range Interpretation [...] (test code = 347) hemolyzed HEPATIC FUNCTION [id number] 06:57:00 Test Item Value Reference Range Interpretation [...] 72 U/L 6-55 H 347) BASIC METABOLIC [id number] 06:57:00 Test Item Value Reference Range Interpretation [...] PATIEN TS. CBC W/PLT COUNT & AUTO [id number] 06:28:00 Test Item Value Reference Range Interpretation [...] PERCENT (BEAKER) (test code = 2801) SCREEN, [id number] 07:28:00 Test Item Value Reference Range Interpretation Comments TEST URINE (BEAKER) (test Negative code = 583) [id number] 07:28:00 Test Item Value Reference Range Interpretation Comments MAGNESIUM (BEAKER) 2.0 mg/dL 1.6-2.6 Specimen moderately (test code = 627) hemolyzed [id number] 07:28:00 Test Item Value Reference Range Interpretation Comments PHOSPHORUS (BEAKER) 4.0 mg/dL 2.3-4.7 Specimen moderately (test code = 604) hemolyzed BASIC METABOLIC [id number] 07:28:00 Test Item Value Reference Range Interpretation [...] APPLICABLE FOR DIALYSIS PATIEN TS. HEPATIC FUNCTION [id number] 07:28:00 Test Item Value Reference Range Interpretation [...] Specimen moderately (test code = 347) hemolyzed [id number] 07:28:00 Test Item Value Reference Range Interpretation Comments LIPASE (BEAKER) (test code = 749) 31 U/L 8-78 CBC W/PLT COUNT & AUTO [id number] 07:10:00 Test Item Value Reference Range Interpretation [...] (BEAKER) (test code = 2801) U/S, ABDOMINAL, [id number] 23:50:00Abdomen limited area? Add comment if clarification [...] Date/Time: 02/15/2019 23:50:53 URINALYSIS W/ REFLEX URINE [id number] 22:43:00 Test Item Value Reference Range Interpretation [...] SOURCE(BEAKER) (test code = 2795) HEPATIC FUNCTION [id number] 17:03:00 Test Item Value Reference Range Interpretation [...] Specimen slightly (test code = 347) hemolyzed [id number] 16:00:00 Test Item Value Reference Range Interpretation Comments MAGNESIUM (BEAKER) 2.1 mg/dL 1.6-2.6 Specimen slightly (test code = 627) hemolyzed BASIC METABOLIC [id number] 16:00:00 Test Item Value Reference Range Interpretation [...] hemolyz ed (test code = 364) PROTHROMBIN TIME/[id number] 15:31:00 Test Item Value Reference Range Interpretation [...] is 2.5-3.5 for patients wiht mechanical heart valves.[id number] 15:31:00 Test Item Value Reference Range Interpretation Comments PARTIAL THROMBOPLASTIN TIME 31.4 seconds 22.5-36.0 (BEAKER) (test code = 760) CBC W/PLT COUNT & AUTO [id number] 15:14:00 Test Item Value Reference Range Interpretation [...] Consult Notes Date/Time Note Provider Source 2022-11-28 2687-37-03T71:23:09Associated Patrick Wallace OT [facility] 10:23:09 Order(s): CONSULT ADULT OCCUPATIONAL THERAPY OT GENERAL EVALUATIONConsult received via Bucky Box, EMR reviewed and evaluation completed 11/28/22. Patient referred to occupational therapy for evaluation and treatment. Patient is 47 year old female with chest pain, NSTEMI. 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 51225-1Dzrzrya dttqUF6294-06-50B67:15:28Consult noteTXT1.2.840.434332.1.13.104.2.7.2 .341308|[id number] for patient apzt30410-6Bqgepyc lcsxJB279969017Yahjlq C Lawas [address][id number] PMZPQQZGRNQIOLIJGEVPWF7422-97-71X64: 15:281.2.840.437781.1.72.3.15|1.2.84 0.453037.1.13.104.2.7.2.727879_18983 95623 2022-11-28 6569-87-65L47:45:00Associated [facility] 09:45:00 Order(s): CONSULT ADULT PHYSICAL THERAPY [...] setting of methamphetamine use), CAD c/b unspecified NH (02/2022 per CareEverywhere), HFpEF, hypertension, hyperlipidemia, COPD, GERD, and seizure disorder (not on medications) presenting as a transfer from [facility] for NSTEMI. Troponin peaked [...] setting of methamphetamine use), CAD c/b unspecified NH (02/2022 per CareEverywhere), HFpEF, hypertension, hyperlipidemia, COPD, GERD, and seizure disorder (not on medications) presenting as a transfer from [facility] for NSTEMI. Troponin peaked [...] a SS house, and sisterDME: Wheel Chair i0Utysh level of Mobility: requires assistance with transfers, requires assistance with bed mobility, uses w/c primarily, family/caregiver. Per patient, her sister puts her on the wheelchair, pushes her on the wheelchair since 2022Suspected ischemic or hemorraghic stroke:Yes, Pre-Stroke Modified [place] Score: 4 - Moderately severe disability; unable to walk without assistance and unable to attend to own bodily needs without assistance Subjective: "My sister pushes me around"Patient/Family Goals: To go homePatient/Family verbalizes understanding of condition: Yes PAIN: denies pain before and after sessionCOMMUNICATIONPrimary Language: Libyan Able to Verbalize needs: Yes Vision:good; no [...] Time in Minutes: 33 minSavanna Juarez PT, DPTUnHCA Houston Healthcare Medical CenterRehabilitation Services A physical therapy evaluation [...] clinical presentation with unstable and unpredictable characteristics 58382-9Ubqvlal ghnrPG8292-96-35B09:53:18Consult noteTXT1.2.840.390904.1.13.104.2.7.2 .369889|[id number] for patient dtmu06650-7Tdxbzij kngoQL976383415Qnsqfk Pallera [address][id number] VVUCLIYBDEPVOGZOWGLECE2686-21-68C39: 53:181.2.840.686218.1.72.3.15|1.2.84 0.450232.1.13.104.2.7.2.727879_18983 32655 2022-11-25 1773-90-82D92:49:18Associated PN-NEUROLOGY [facility] 18:49:18 Order(s): CONSULT NEUROLOGY STROKE SERVICE CONSULTDATE [...] 40 mg Oral DAILY 40 mg at 11/25/22 09 ALLERGY Allergies Allergen Reactions Aspirin Anaphylaxis Throat [...] with Dr. Rivera, Neurology Faculty Stroke pager: [phone] Shahnaz Borges, YARELIGY-4, NeurologyPager: [phone] signed by Romaine Rivera MD at 11/26/2022 [...] reported) and/or communicating results to the patient/family/caregiver. 29167-1Pczsrko eikqDM5794427Hjehjecc, Hashem1.2.840.017775.1.13.104.2.7.2. 016860QcsmjspxFnqhksFS4132-83-42J47: 21:11Consult noteTXT1.2.840.936530.1.13.104.2.7.2 .035501|3423113828BQMspjzlwsa for patient vdfn25245-8Xenyich yypcZFTR-ZTGDZMPQNHN-NCNCHKPKQPZHRUS [address] DybxPikqcqtxqNbmjmblxwCXOK4601303767 GJSADWIQVJETCIFNGELZEL6471-67-00E43: 21:111.2.840.612737.1.72.3.15|1.2.84 0.847494.1.13.104.2.7.2.727879_18956 97450 2022-11-25 9910-93-93P57:00:00Associated Analy Bonner [facility] 18:00:00 Order(s): CONSULT PS PASTORAL Filippo CARE Patient Relations Director visited with patient in response to consult for pastoral care and support. Patient was awake and acknowledged tow operator's presence. Pt was alone in room. The Pt said she was of Sabianist nicole. The PT. Expressed to the Patient Relations Director of some fear,about her upcomming surgery that going to be done on her heart.Pt asked the Patient Relations Director to pray for her and for God to give her peace. The Patient Relations Director provided spiritual support through prayer of healing, peace and comfort. Patient Relations Director provided pastoral presence, and validated feelings. Pastoral care will continue to follow up as needed. Rev.Analy Ferro [facility] Department of Pastoral CarePh: [phone]: [phone] 36853-1Vnpftwi qecjSQ1458-48-09A57:31:33Consult noteTXT1.2.840.647144.1.13.104.2.7.2 .314303|[id number] for patient cabl32587-6Cafobui ghppSD570776617Oiefndu M Quin[address] VwgtXfnrrlogpGtmnsiefxLMCD7409945292 FCSOAXUHEUVZRHHVCHDOIQ7487-07-22T75: 31:331.2.840.073502.1.72.3.15|1.2.84 0.504595.1.13.104.2.7.2.727879_18956 47364 2022-11-25 9618-87-85F14:53:13Associated PED-PEDIATRICS [facility] 10:53:13 Order(s): CONSULT ALLERGY ALLERGY & IMMUNOLOGY CONSULT NOTEDATE OF SERVICE: 11/25/22REASON FOR CONSULT: Aspirin allergyHPI: Patient is a 47 year old female with a past medical history significant for recent hemorrhagic stroke (10/29/22; 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 - Plan also explained to via martiniquais translatorPatient seen with Dr. Magaña. Thank you [...] see the fellow's note for additional details. 87201-9Objtvnr bmieCF9970080Ucsc, Sarah1.2.840.685661.1.13.104.2.7.2.8 85426KymbZrqfpPV1326-59-84J93:58:19C onsult noteTXT1.2.840.779178.1.13.104.2.7.2 .911689|2039728155DORowrlwqyd for patient ffzf42569-8Gyoroqh iwhqCBEJP-BCPDDEIJRSOCW-KBXTWLHNQUQB [address] WeujJjnjrpulhNapdzkniwGJEW5759806397 GFDMLBUYJMWMMZEEPWZNPK5790-96-03G71: 58:191.2.840.578443.1.72.3.15|1.2.84 0.927232.1.13.104.2.7.2.727879_18954 42048 2022-11-24 2789-73-54U48:08:12Associated NS-NEUROLOGICAL [facility] 16:08:12 Order(s): CONSULT SURGERY NEUROSURGERY NEUROSURGERY CONSULTATION HISTORY AND PHYSICALAttending Neurosurgeon: Dr. 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), CAD c/b unspecified NH (02/2022 per CareEverywhere), HFpEF, hypertension, hyperlipidemia, COPD, GERD, and seizure disorder (not on medications) presenting as a transfer from [facility] for NSTEMI currently on [...] 100% 100% Weight: Height: Awake, alert, oriented j6VURUN bilaterally at 3mmEOMI bilaterallySlight left lower facial [...] setting of methamphetamine use), CAD c/b unspecified NH (02/2022 per CareEverywhere), HFpEF, hypertension, hyperlipidemia, COPD, GERD, and seizure disorder (not on medications) presenting as a transfer from [facility] for NSTEMI currently on heparin drip. NSGY consulted for recs regarding heparin in light of recent hemorrhagic stroke. Pt at neurologic baseline s/p stroke.Recommendations:No neurosurgical interventionPlease consult neurology for management and recommendations of anticoagulation w/ hx of hemorrhagic strokeWill sign off at this timeChristian Ogasawara, MDNeurosurgery ServiceFor inquiries please page [phone] signed by Burton Howell MD at 11/25/2022 12:23 PM CDTAssociated attestation - Burton Howell MD - 11/25/2022 12:23 PM CDT I personally evaluated and am primary in decision making on, Geetha Minor, and I agree with the documentation by Sinan White MD,neurosurgery resident.86010-3Wdsbgwf wrddQZ9496180Xvwuea, Rudy P1.2.840.110198.1.13.104.2.7.2.52389 0CsiptfJsvzIDZ5809-51-18B90:23:14Con [facility] noteTXT1.2.840.316721.1.13.104.2.7.2 .987730|[id number] for patient rdbr50652-3Clnqejg noteLNNS-NEUROLOGICAL SURGERYNS-NEUROLOGICAL SURGERY[address] StreetAbjtKww[id number] NKCUWRLEERGQOVZOYALNGU2104-45-39X54: 23:141.2.840.467978.1.72.3.15|1.2.84 0.818588.1.13.104.2.7.2.727879_18954 46277 History and Physical Notes Date/Time Note Provider Source 2022-11-24 11:33:08 4890-58-65Q48:33:08Formatting of this note [facility] is different from the original.Images from the original note were not included.CCU History and Physical Date of Service: 11/24/2022 15:48 ICU day: Intubation Day: CHIEF COMPLAINT: Chest painHistory of Present IllnessGeetha Minor is a 47 year old female with a past medical history significant for recent hemorrhagic stroke (10/29/22; 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 On my [...] for amphetamines during her recent hospitalization.Workup at [facility] showed ST depression and TWI in [...] 112/69 Pulse: 57 56 56 59 Resp: 17 18 SpO2: 91% 100% 100% Weight: 65.8 kg [...] 454 ms QTC Calculation(Bazett) 460 ms P [place] 19 degrees R [place] 64 degrees T [place] 254 degrees Normal sinus rhythm Possible Left [...] sedated at OSH prior to transfer to [facility], extubated on 10/30, required nicardipine gtt [...] develop- Sedation/Analgesia: NoneRespCOPDHx tobacco abuse- DuoNebs prn- E9ZKJoctobfmdjlagkZIUHOQZbztd painReported CAD HFpEFBradycardiaHTNHLDPatient presenting as a transfer [...] evaluation of volume status- CXR- Will need C this admission- Continue Plavix (allergic to ASA)- [...] prophylaxis: heparinLines/Catheters:Peripheral IV 11/24/22 Right Antecubital Inserted TELEVISION ACTOR (Active) Number of days: 0 Dispo: CCUPrognosis: GuardedCode Status: Maricarmen Willis, DOPGY-3, Department of Internal Medicine ssociated attestation - [...] ordering referrals and/or communicating with other health acute care occupational therapist (when not separately reported), documenting clinical information in the electronic or other health record, and care coordination (not separately reported).- hemodynamically stable- Neurosurgery consult for systemic AC / DAPT in the future, given h/o ICH- allergy consult for ASA desensitizationJODISE Cierra GONZALEZ MD, [facility], [facility], [facility]ALTHAAssistant ProfessorCardiology, Advanced Heart Failure, LVAD & Transplant ServiceDate of service: [id number] and physical [id number]-Tddzzjxk, Jose [id number] abipe-[id number]:30:41Hi story and physical [id number] 9|[id number] for patient qbag81733-0Osvqaat and physical noteLNUT[address] Tj[id number] [id number]:30:[id number] .[id number]|[id number]. [id number]
--- NOTE | 2023-01-18 18:22 | RAD REPORT ---
EXAM DESCRIPTION: [facility] Single View01/18/2023 6:11 pm CLINICAL HISTORY: Chest pain COMPARISON: December 2022 FINDINGS: The lungs appear clear of acute infiltrate. The heart is normal size IMPRESSION: No acute abnormalities displayed
[2023-01-18] MEDS ORDERED: ONDANSETRON 4 MG/2 ML VIAL ONE (20:00)
[2023-01-18] MEDS ORDERED: MORPHINE 2 MG/ML SYR ONE ×2 (20:00→22:46)
[2023-01-18 20:32] LABS: Specific Gravity 1.019 (1.005-1.030); Urine Bacteria <20 /HPF (<20); Urine Bilirubin NEGATIVE (Negative); Urine Blood Negative (Negative); Urine Clarity Extremely Turbid (Clear); Urine Color Light-Yellow (Yellow); Urine Crystals Unidentified Few /HPF (None Seen); Urine Glucose NEGATIVE (Negative); Urine Mucus Slight /HPF (None Seen); Urine Protein TRACE (Negative); Urine RBC <5 /HPF (None Seen); Urine Urobilinogen Normal (Normal); Urine WBC Clump Rare /HPF (None Seen); Urine pH 5.5 (5.0-7.0)
[2023-01-18 20:34] LABS: Absolute Lymphocytes (CBC) 1.6 K/uL (0.7-4.9); Hematocrit 32.9 % (36.0-45.0); Lymphocytes % 28.7 % (15.3-44.8); MCV 92.8 fL (80-100); MPV 7.5 fL (7.6-11.3); Platelets 212 thou/uL (152-406); RBC Red Blood Cell Count 3.55 M/uL (3.86-4.86)
[2023-01-18 20:37] LABS: Methadone ND (NEGATIVE)
[2023-01-18 20:49] LABS: Albumin 3.8 g/dL (3.4-5.0); Bilirubin Direct 0.1 mg/dL (0-0.2); Bilirubin Indirect, Calculated 0.4 mg/dL (0.2-0.8); Bilirubin Total 0.5 mg/dL (0.2-1.0); Magnesium 1.6 mg/dL (1.6-2.4); Potassium 3.8 mEq/L (3.5-5.1); Troponin High Sensitivity 46.4 pg/mL (<58.9)
[2023-01-18 20:54] LABS: Barbiturates NEGATIVE (NEGATIVE); Benzodiazepines NEGATIVE (NEGATIVE); Cocaine NEGATIVE (NEGATIVE); METHAMPHETAM NEGATIVE (NEGATIVE); Opiates NEGATIVE (NEGATIVE); Phencyclidine NEGATIVE (NEGATIVE); THC Cannibis NEGATIVE (NEGATIVE)
--- NOTE | 2023-01-18 23:53 | ER ---
Nurse's Notes [facility] Name: Geetha Khan Age: 47 yrs Sex: Female : 1975 Arrival Date: 01/18/2023 Time: 17:24 Bed 17 Private MD: Diagnosis: Chest pain, unspecified Presentation: 01/18 17:36 Chief complaint: EMS states: called to patient's home due to patient having left sided cm10 chest pain that radiates down left arm. 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 Pt describes the pain as a "deep sharp pain" and rates the pain a 10 on the pain scale. Coronavirus screen: Vaccine status: Patient reports being unvaccinated. Client denies travel out of the [place] in the last 14 days. Ebola Screen: Patient denies travel to an Ebola-affected area in the 21 days before illness onset. No symptoms or risks identified at this time. Initial Sepsis Screen: Does the patient meet any 2 criteria? No. Patient's initial sepsis screen is negative. Does the patient have a suspected source of infection? No. Patient's initial sepsis screen is negative. Risk Assessment: Do you want to hurt yourself or someone else? Patient reports no desire to harm self or others. Onset of symptoms was January 18, 2023. 17:36 Method Of Arrival: EMS: [facility] cm10 17:36 Acuity: CORRINA 2 cm10 Historical: - Allergies: 17:38 Aspirin; cm10 17:38 CRANBERRY; cm10 17:38 FISH PRODUCT DERIVATIVES; cm10 17:38 GRAPEFRUIT; cm10 17:38 mushrooms; cm10 - PMHx: 17:38 Asthma; Cerebrovascular accident; COPD; CVA; Left sided deficits.; Hypertension; cm10 Myocardial infarction; Seizures; Thyroid problem; - Immunization history:: Adult Immunizations unknown. - Social history:: Smoking status: Patient reports the use of cigarette tobacco products, smokes one-half pack cigarettes per day. Screenin:15 [facility] ED Fall Risk Assessment (Adult) Score/Fall Risk Level 0 - 2 = Low Risk. Abuse eh3 screen: Denies threats or abuse. Denies injuries from another. Nutritional screening: No deficits noted. Tuberculosis screening: No symptoms or risk factors identified. Assessment: 19:15 General: Appears in no apparent distress. uncomfortable, Behavior is cooperative. Pain: eh3 Complains of pain in chest Pain radiates to left arm Pain began suddenly, 4 hours ago. Neuro: Level of Consciousness is awake, alert, obeys commands, Oriented to person, place, time, situation. Cardiovascular: Capillary refill < 3 seconds Patient's skin is warm and dry. Respiratory: Airway is patent Respiratory effort is even, unlabored, Respiratory pattern is regular, symmetrical. Derm: Skin is pink, warm \\T\\ dry. Musculoskeletal: No signs and/or symptoms reported regarding the musculoskeletal system. 20:15 Reassessment: Patient appears in no apparent distress at this time. Patient and/or eh3 family updated on plan of care and expected duration. Pain level reassessed. Patient is alert, oriented x 3, equal unlabored respirations, skin warm/dry/pink. Vital Signs: 17:36 BP 137 / 92; Pulse 76; Resp 18; Temp 98; Pulse Ox 100% ; Weight 63.5 kg; Height 5 ft. 2 cm10 in. ; Pain 10/10; 19:30 BP 139 / 86; Pulse 64; Resp 16; Pulse Ox 98% on R/A; eh3 20:30 BP 135 / 85; Pulse 92; Resp 20; Pulse Ox 96% on R/A; eh3 22:00 BP 137 / 93; Pulse 66; Resp 16; Pulse Ox 99% on R/A; rv 23:00 BP 127 / 74; Pulse 73; Resp 17; Pulse Ox 99% on R/A; rv 01/19 00:00 BP 145 / 87; Pulse 81; Resp 18; Temp 98; Pulse Ox 99% on R/A; rv 01/18 17:36 Body Mass Index 25.61 (63.50 kg, 157.48 cm) cm10 01/18 17:36 Pain Scale: Adult cm10 ED Course: 01/18 17:30 Patient arrived in ED. ts1 17:33 Michael Nguyen PA is PHCP. cp 17:33 Na Adame MD is Attending Physician. cp 17:38 Triage completed. cm10 17:39 Arm band placed on Patient placed in waiting room. EKG completed in triage. Results cm10 shown to MD. 18:12 XRAY Chest (1 view) In Process Unspecified. EDMS 19:15 Patient has correct armband on for positive identification. Placed in gown. Bed in low eh3 position. Call light in reach. Side rails up X2. Provided Education on: use of call breen. Client placed on continuous cardiac and pulse oximetry monitoring. NIBP monitoring applied. 19:15 Patient maintains SpO2 saturation greater than 95% on room air. eh3 19:33 Donna Brown RN is Primary Nurse. 3 20:14 Inserted saline lock: 20 gauge in right antecubital area, using aseptic technique. eh3 Blood collected. 20:15 PREGU Sent. eh3 20:15 UDS Sent. eh3 20:15 Urinalysis W/Microscopic Sent. eh3 20:45 Report given to YANETH Torres. eh3 22:30 Primary Nurse role handed off by Donna Brown RN as6 23:02 CT Chest For PE Angio In Process Unspecified. EDMS 01/19 00:08 Cale Fernandes, YANETH is Primary Nurse. rv 00:10 No provider procedures requiring assistance completed. IV discontinued, intact, rv bleeding controlled, No redness/swelling at site. Pressure dressing applied. Administered Medications: 01/18 20:00 Drug: morphine IVP or IV 2 mg IVP once over 4 mins Route: IVP; Infused Over: 4 mins; [facility] Site: right antecubital; 01/19 00:08 Follow up: Response: No adverse reaction rv 01/18 20:00 Drug: Ondansetron IVP 4 mg IVP once; over 2 minutes Route: IVP; Site: right antecubital;[facility] 01/19 00:08 Follow up: Response: No adverse reaction rv 01/18 22:35 Drug: morphine IVP or IV 2 mg IVP once over 4 mins Route: IVP; Infused Over: 4 mins; rv Site: right antecubital; 01/19 00:08 Follow up: Response: No adverse reaction 01/18 23:51 CANCELLED (Physician Discretion): [id number] mg PO once cp 01/19 00:08 Drug: Hydrocodone-Acetaminophen PO (7.5 mg-325 mg) 1 tabs PO once; RASS on ADMIN: rv Combtv4, Very Agttd3, Agttd2, Rstlss1, AlertClm0, Drwsy-1, Lt Sdtn-2, Mod Sdtn-3, Dp Sdtn-4, UnArsble-5 Route: PO; 00:08 Follow up: Response: Medication administered at discharge. rv 00:08 Drug: Clopidogrel PO 75 mg PO once Route: PO; rv 00:08 Follow up: Response: Medication administered at discharge. rv Outcome: 01/18 23:52 Discharge ordered by . cp 01/19 00:10 Discharged to home via wheelchair, with family, rv Condition: good Discharge instructions given to patient, Instructed on discharge instructions, follow up and referral plans. Demonstrated understanding of instructions, follow-up care, 00:10 Patient left the ED. rv Signatures: Dispatcher [employer] EDMS Michael Nguyen PA PA cp Vicente, Ronaldo RN RN rv Florentin Lester, RN RN as6 Donna Brown RN RN eh3 Mary Javed PAS PAS ts1 Kelsey Khan, RN RN cm10
--- NOTE | 2023-01-18 23:53 | EDPHYS ---
Physician Documentation [facility] Name: Geetha Khan Age: 47 yrs Sex: Female : 1975 Arrival Date: 01/18/2023 Time: 17:24 Bed 17 Private MD: ED Physician Na Adame HPI: 01/18 17:55 This 47 yrs old Female presents to ER via EMS with complaints of Chest Pain. cp 17:55 The patient or guardian reports chest pain that is located primarily in the left side cp of chest. 17:55 Onset: 1 hour(s) ago. The pain radiates to the left arm. cp 17:55 Associated signs and symptoms: Pertinent positives: shortness of breath, Pertinent cp negatives: abdominal pain, cough, diaphoresis, lower extremity pain, lower extremity swelling. 17:55 The chest pain is described as sharp. cp 17:55 Duration: The patient or guardian reports a single episode, that is still ongoing, and cp unchanged. Historical: - Allergies: 17:38 Aspirin; cm10 17:38 CRANBERRY; cm10 17:38 FISH PRODUCT DERIVATIVES; cm10 17:38 GRAPEFRUIT; cm10 17:38 mushrooms; cm10 - PMHx: 17:38 Asthma; Cerebrovascular accident; COPD; CVA; Left sided deficits.; Hypertension; cm10 Myocardial infarction; Seizures; Thyroid problem; - Immunization history:: Adult Immunizations unknown. - Social history:: Smoking status: Patient reports the use of cigarette tobacco products, smokes one-half pack cigarettes per day. ROS: 18:00 Constitutional: Negative for body aches, chills, fever, poor PO intake, cp 18:00 Eyes: Negative for injury, pain, redness, and discharge, cp 18:00 ENT: Negative for drainage from ear(s), ear pain, sore throat, difficulty swallowing, difficulty handling secretions, 18:00 Cardiovascular: Positive for chest pain, Negative for edema, palpitations, 18:00 Respiratory: Negative for cough, shortness of breath, wheezing, 18:00 Abdomen/GI: Negative for abdominal pain, vomiting, diarrhea, constipation, anorexia, 18:00 Neuro: Negative for altered mental status, dizziness, headache, syncope, weakness, 18:00 All other systems are negative, Exam: 17:46 ECG was reviewed by the Attending Physician. cp 18:05 Constitutional: The patient appears in no acute distress, alert, awake, cp non-diaphoretic, non-toxic, well developed, well nourished, 18:05 Head/Face: Normocephalic, atraumatic. cp 18:05 Eyes: Periorbital structures: appear normal, Conjunctiva: normal, no exudate, no injection, Sclera: no appreciated abnormality, Lids and lashes: appear normal, bilaterally, 18:05 ENT: External ear(s): are unremarkable, Nose: is normal, Mouth: Lips: moist, Oral mucosa: pink and intact, moist, Posterior pharynx: is normal, airway is patent, no erythema, no exudate, 18:05 Neck: ROM/movement: is normal, is supple, without pain, no range of motions limitations, no meningismus, 18:05 Chest/axilla: Inspection: normal, 18:05 Cardiovascular: Rate: normal, Rhythm: regular, Edema: is not appreciated, JVD: is not appreciated, 18:05 Respiratory: the patient does not display signs of respiratory distress, Respirations: normal, no use of accessory muscles, no retractions, labored breathing, is not present, 18:05 Abdomen/GI: Inspection: abdomen appears normal, Palpation: abdomen is soft and non-tender, in all quadrants, 18:05 Back: pain, is absent, ROM is normal, 18:05 Skin: cellulitis, is not appreciated, no rash present. 18:05 Neuro: Orientation: to person, place \T\ time. Mentation: is normal, Cerebellar function: is grossly normal, Motor: moves all fours, strength is normal, Sensation: is normal, Vital Signs: 17:36 BP 137 / 92; Pulse 76; Resp 18; Temp 98; Pulse Ox 100% ; Weight 63.5 kg; Height 5 ft. 2 cm10 in. ; Pain 10/10; 19:30 BP 139 / 86; Pulse 64; Resp 16; Pulse Ox 98% on R/A; eh3 20:30 BP 135 / 85; Pulse 92; Resp 20; Pulse Ox 96% on R/A; eh3 22:00 BP 137 / 93; Pulse 66; Resp 16; Pulse Ox 99% on R/A; rv 23:00 BP 127 / 74; Pulse 73; Resp 17; Pulse Ox 99% on R/A; rv 01/19 00:00 BP 145 / 87; Pulse 81; Resp 18; Temp 98; Pulse Ox 99% on R/A; rv 01/18 17:36 Body Mass Index 25.61 (63.50 kg, 157.48 cm) cm10 11 17:36 Pain Scale: Adult cm10 MDM: 01/18 17:41 Patient medically screened. 23:52 Data reviewed: vital signs, nurses notes, lab test result(s), EKG, radiologic studies, cp CT scan, plain films. 23:52 The patient was not given aspirin in the Emergency Department. Not indicated due to cp patient's past medical history. Consideration of Admission/Observation Escalation of care including admission/observation considered. I considered the following discharge prescriptions or medication management in the emergency department Medications were administered in the Emergency Department. See MAR. Counseling: I had a detailed discussion with the patient and/or guardian regarding the historical points, exam findings, and any diagnostic results supporting the discharge/admit diagnosis, lab results, radiology results, the need for outpatient follow up, a family practitioner, to return to the emergency department if symptoms worsen or persist or if there are any questions or concerns that arise at home. Response to treatment: improved. Special discussion: Based on the patient's history, exam, and Dx evaluation, there is no indication for emergent intervention or inpatient Tx. It is understood by the patient/guardian that if the Sx's persist or worsen they need to return immediately for re-evaluation. ED course: VSS. Reviewed of records show patient with HX of cardiac cath performed in November 2022 that was negative for significant disease. Will discharge to home for continued monitoring. 01/18 17:52 Order name: Basic Metabolic Panel; Complete Time: 21:35 01/18 21:42 Interpretation: Normal except: CRE 1.35; GFR 49. 01/18 17:52 Order name: CBC with Diff; Complete Time: 21:35 cp 01/18 21:42 Interpretation: Normal except: RBC 3.55; HGB 11.5; HCT 32.9; MPV 7.5. 01/18 17:52 Order name: LFT's; Complete Time: 21:35 01/18 21:42 Interpretation: Normal except: ALK 229. 01/18 17:52 Order name: Magnesium; Complete Time: 21:35 cp 01/18 17:52 Order name: NT PRO-BNP; Complete Time: 21:35 01/18 21:42 Interpretation: Abnormal: NT PRO-BNP 2341. 01/18 17:52 Order name: Troponin HS; Complete Time: 21:35 01/18 21:43 Interpretation: Troponin HS 46.4; Reviewed. 01/18 17:52 Order name: Urinalysis W/Microscopic; Complete Time: 21:35 01/18 21:43 Interpretation: Normal except: [facility] Extremely Turbid; UPROT TRACE; UESTR 75; UWBC 20-50. 01/18 17:52 Order name: UDS; Complete Time: 21:35 01/18 17:52 Order name: PREGU; Complete Time: 21:35 01/18 20:35 Order name: Urine Culture EDIL 01/18 22:06 Order name: Troponin High Sensitivity; Complete Time: 23:21 01/18 23:21 Interpretation: Reviewed. 01/18 17:52 Order name: XRAY Chest (1 view); Complete Time: 19:21 01/18 19:21 Interpretation: Report review. 01/18 22:16 Order name: CT Chest For PE Angio 01/18 17:52 Order name: EKG; Complete Time: 17:53 01/18 17:52 Order name: Cardiac monitoring; Complete Time: 19:40 01/18 17:52 Order name: EKG - Nurse/Tech; Complete Time: 18:44 01/18 17:52 Order name: IV Saline Lock; Complete Time: 20:14 01/18 17:52 Order name: Labs collected and sent; Complete Time: 20:14 01/18 17:52 Order name: O2 Per Protocol; Complete Time: 19:40 01/18 17:52 Order name: O2 Sat Monitoring; Complete Time: 19:40 cp EC:46 Rate is 81 beats/min. Rhythm is regular. DE interval is normal. QRS interval is normal. cp QT interval is normal. T waves are Inverted in leads I, II, aVL, V5, V6. Interpreted by me. Reviewed by me. Administered Medications: 20:00 Drug: morphine IVP or IV 2 mg IVP once over 4 mins Route: IVP; Infused Over: 4 mins; eh3 Site: right antecubital; 01/19 00:08 Follow up: Response: No adverse reaction rv 01/18 20:00 Drug: Ondansetron IVP 4 mg IVP once; over 2 minutes Route: IVP; Site: right antecubital;eh3 01/19 00:08 Follow up: Response: No adverse reaction rv 01/18 22:35 Drug: morphine IVP or IV 2 mg IVP once over 4 mins Route: IVP; Infused Over: 4 mins; rv Site: right antecubital; 01/19 00:08 Follow up: Response: No adverse reaction rv 01/18 23:51 CANCELLED (Physician Discretion): [id number] mg PO once cp 01/19 00:08 Drug: Hydrocodone-Acetaminophen PO (7.5 mg-325 mg) 1 tabs PO once; RASS on ADMIN: rv Combtv4, Very Agttd3, Agttd2, Rstlss1, AlertClm0, Drwsy-1, Lt Sdtn-2, Mod Sdtn-3, Dp Sdtn-4, UnArsble-5 Route: PO; 00:08 Follow up: Response: Medication administered at discharge. rv 00:08 Drug: Clopidogrel PO 75 mg PO once Route: PO; rv 00:08 Follow up: Response: Medication administered at discharge. rv Disposition: 01/18 21:30 Co-signature as Attending Physician, Na Adame MD. I agree with the assessment cp3 and plan of care. Disposition Summary: 01/18/23 23:52 Discharge Ordered Notes: Location: Home cp Problem: an ongoing problem cp Symptoms: have improved cp Condition: Stable cp Diagnosis - Chest pain, unspecified cp Followup: cp - With: Private Physician - When: 2 - 3 days - Reason: Recheck today's complaints Discharge Instructions: - Discharge Summary Sheet cp - Nonspecific Chest Pain, Adult cp Forms: - Medication Reconciliation Form cp - Thank You Letter cp - Antibiotic Education cp - Prescription Opioid Use cp - Patient Portal Instructions cp - Leadership Thank You Letter cp Prescriptions: - Plavix 75 mg Oral Tablet - take 1 tablet ORAL route once daily; 20 tablet; Refills: 0, Product Selection cp Permitted Signatures: Dispatcher [employer] Na Dumont MD MD cp3 Michael Nguyen PA PA cp Vicente, Ronaldo, RN RN rv Donna Brown RN RN eh3 Kelsey Khan RN RN cm10 Corrections: (The following items were deleted from the chart) 23:51 23:51 Acetaminophen PO 1000 mg PO once ordered. cp cp
[2023-01-19] MEDS ORDERED: HYDROCODONE/APAP 7.5/325 MG TAB ONE (00:11)
[2023-01-19] MEDS ORDERED: CLOPIDOGREL 75 MG TABLET ONE (00:11)
[2023-01-19 00:53] VITALS: TEMP 98
[2023-01-19 00:57] VITALS: O2SAT 99
[2023-01-19 01:01] VITALS: BP 145/87
--- NOTE | 2023-01-19 13:29 | RAD REPORT ---
EXAM DESCRIPTION: CT - Chest For Pe Angio - 01/19/2023 6:29 am CLINICAL HISTORY: The patient is 47 years old and is Female; CHEST PAIN TECHNIQUE: Axial computed tomographic angiography images of the chest with intravenous contrast. T his CT exam was performed using one or more of the following dose reduction techniques: automated e xposure control, adjustment of the mA and/or kV according to patient size, and/or use of iterative re construction technique. MIP reconstructed images were created and reviewed. Oblique reformatted images were created and reviewed. DLP: 311 mGy*cm COMPARISON: Chest radiograph of the same day. FINDINGS: PULMONARY ARTERIES: Unremarkable. No pulmonary embolism. AORTA: Aneurysm of the ascending aorta measuring approximately 4.3 cm. LUNGS: Unremarkable. No mass. No consolidation. PLEURAL SPACE: Unremarkable. No significant effusion. No pneumothorax. HEART: Coronary calcifications. No significant pericardial effusion. No evidence of RV dysfunction. MEDIASTINUM: Moderately prominent multifocal mediastinal lymph nodes predominantly in the AP window . BONES/JOINTS: No acute fracture. No dislocation. SOFT TISSUES: Unremarkable. LYMPH NODES: See above. IMPRESSION: 1. Aneurysm of the ascending aorta measuring approximately 4.3 cm. 2. No pulmonary embolism. No acute intrathoracic abnormality. Electronically signed by: Quentin Hernandez DO 01/18/2023 11:40 PM CDT Due to temporary technical issues with the PACS/Fluency reporting system, reports are being signed by the in house radiologists without review as a courtesy to insure prompt reporting. The interpreting radiologist is fully responsible for the content of the report.
--- NOTE | 2023-01-26 14:44 | EKG ---
Test Date: 2023-01-18 Test Time: 17:41:36 Epic Beacon Analyst: CELESTE MEASUREMENT RESULTS: Intervals: Rate: 81 SC: 190 QRSD: 90 QT: 400 QTc: 464 [place]: P: 32 SC: 190 QRS: -11 T: 145 INTERPRETIVE STATEMENTS: Normal sinus rhythm Left ventricular hypertrophy with repolarization abnormality Abnormal ECG Compared to ECG 01/12/2023 18:57:30 Sinus tachycardia no longer present Atrial abnormality no longer present Electronically Signed On 01-26-23 14:21:18 WEIGHER PRODUCTION by Josse Olson
== END 2023-01-19 00:10 | disposition home or self-care (01) ==
LOC: ER 17:24
DX: R07.89 Other chest pain (principal)
CPT/HCPCS: 36415; 71045; 71275; 80048; 80076; 80307; 81001; 81025; 83735; 83880; 84484; 85025; 87086; 87088; 93005; 96374; 96375; 99285; J2270; J2405; Q9967

== ENCOUNTER 2023-01-20 19:57 | Emergency (ER) | payer SELFPAY ==
--- OUTSIDE RECORDS SUMMARY | 2023-01-20 20:06 | XMS REPORT | Continuity of Care Document ---
:1975 Author Organization [facility] t Address [address] [facility] [address] [place] [address] Care Team Providers Name Role Phone PCP, PATIENT DOES NOT HAVE A Primary Care Physician UnavailZAHRA Stoner Attending Clinician Unavailable SUSIE TAI Attending Clinician Unavailable KATHY MAHMOOD Attending Clinician Unavailable MURRAY ELISE Attending Clinician Unavailable Desi Sotelo LVN Attending Clinician Zohaib Parsons MD Attending Clinician [phone] Ryne Yoder MD Attending Clinician Meghana Felix MD Attending Clinician RYNE YODER Attending Clinician Unavailable GOYO HANKINS Attending Clinician Unavailable DANYEL WHITESIDE Attending Clinician Unavailable Vijay Jenkins Attending Clinician Fredis ECHEVERRIA, Popeye In Attending Clinician Fredrick ECHEVERRIA, Aida Barreto Attending Clinician [phone] Yariel ECHEVERRIA, Clifton Negro Attending Clinician [phone] BartKristin otoole MD Attending Clinician [phone] KRISTIN SHAH Attending Clinician Unavailable Les Al MD Attending Clinician Nena Waller MD Attending Clinician Leonid Harris MD Attending Clinician CLIFTON DE LUNA Attending Clinician Unavailable DAYRON FOSTER Attending Clinician Unavailable Dayron Foster MD Attending Clinician [phone] 1 ZAIN SALAS Attending Clinician Unavailable AMANDA [...] [facility] St an abscess an abscess 5-21 Iqar kes 00:00: Medical 00 [place] Abdominal Abdominal Disease Recurre [facility] I [facility] infection infection nce 5-16 [facility] s 00:00: Medical 00 Center Pelvic Pelvic Disease Active [facility] abscess in abscess in 5-15 Iqra kes female female 00:00: Medical 00 [place] Acute Acute Disease Active 2018-[address] cholecysti cholecysti 2-03 Iqra kes tis tis 00:00: Medical 00 [place] Calculus Calculus Disease Active 2018-03 [facility] of of [facility]02 [facility] gallbladde gallbladde 00:00: Me dical r without r without 00 Cent er cholecysti cholecysti tis tis without without obstructio obstructio n n Transamini Transamini Disease Active 2019-[address] tis tis 2-02 [facility] 00:00: Medical 00 [place] Hypertensi Hypertensi Disease Recurre 2018- [facility] on on nce 04-19 [facility] 00:00: Medical 00 [place] Seizure Seizure Disease Recurre 2018- [facility] disorder disorder nce 2- [facility] 00:00: Medical 00 [place] Anemia Anemia Disease Active 2019- [facility] 2-02 [facility] 00:00: Medical 00 [place] Thrombocyt Thrombocyt Disease Active 2019- C HI [...] Comments Source Gender identity [facility]it [facility] Sexual orientation Univer sity of [facility] History SDOH [facility] Alcohol Std Drinks Medica l Center History SDOH [facility] Alcohol Comment Medical C enter History SDOH [facility] Transport Non-Med Medical Center History of Social 2022-11-26 2022-11-26 Univers ity of function 00:00:00 00:00:00 [facility] Cigarettes smoked 2022-11-24 2022-11-24 Univers ity of current (pack per 00:00:00 00:00:00 ) - Reported Branch Cigarette 2022-11-24 2022-11-24 University of pack-years 00:00:00 00:00:00 [facility] Tobacco use and 2022-11-24 2022-11-24 Smokeless Universit y of exposure 00:00:00 00:00:00 tobacco non-user [facility] dichi Branch Alcohol intake 2022-11-24 2022-11-24 Ex-drinker University 00:00:00 00:00:00 (finding) [facility] History of tobacco 2022-11-03 Passive smoker Un iversity of use 00:00:00 [place] [facility] History [facility] 2022-08-06 2022-08-[address] [facility] Transport Med 00:00:00 00:00:[address] [facility] 2022-08-06 2022-08-[address] [facility] Housing Unable to 00:00:00 00:00:00 Medical Center Pay History [facility] 2022-08-06 2022-08-[address] [facility] Housing Places 00:00:00 00:00:00 Medical Ce nter Lived History [facility] 2022-08-06 2022-08-[address] [facility] Housing Homeless 00:00:00 00:00:00 Medical Center Last Year History [facility] 2019-02-15 2019-02-[address] [facility] Alcohol Binge 00:00:00 00:00:[address] History [facility] 2019-02-15 2019-02-[address] [facility] Alcohol Frequency 00:00:00 00:00:00 Medical Center Sex Ass[birth year] At [birth year] Universit y of 00:00:00 00:00:00 [facility] Smoking Status Start Date Stop Date Source Ex-smoker 2022-11-24 00:00:00 2022-11-24 University o f [place] 00:00:[address] [facility] Occasional tobacco 2022-07-30 00:00:00 [facility] smoker Center Medications Ordered Filled Start Stop Current Ordering Indication Dosage Frequency Signature Comments Components Source Medication Medication Date Date Medication? Clinician (SIG) Name Name KCL Yes 20meq 20 mEq, Univers (KLOR-CON 9-14 Oral, ity of M20) tablet 14:00: DAILY, [facility] 20 mEq 00 First dose Medical on [place] Branch 11/29/22 at 0900, [facility]ine QUEtiapine Yes 25mg Take 1 Unive rs 25 mg 9-13 tablet by ity of tablet 21:49: mouth in [place] [id number] the Medical morning Branch and 1 tablet [...] ity of mg tablet 21:49: mouth in [facility] s 46 the Medical morning. Branch [...] ity of tablet 10:17: 00:00 mouth at [place] 14 :00 bedtime. Medical Branch amLODIPine 2022- No 10mg Take 1 Univ ers 10 mg 11-28 tablet by ity of tablet 10:12: 00:00 mouth in [place] 07 :00 the Medical morning. Branch NIFEdipine [...] tablet in the evening. amLODIPine 2022-0 Yes [id number] 2.5mg Take 1 Univers 2.5 mg 11-28 tablet by ity of tablet 00:00: mouth in [place] 00 the Medical morning. Branch metoprolol 2022-0 Yes [id number] 12.5mg Take 0.5 Univers tartrate 25 9-13 tablets by it y of mg tablet 00:00: [place] 00 the Medical morning Branch and 0.5 tablets in the evening. atorvastati Yes [id number] 40mg Take 1 Univers n 40 mg 9-13 tablet by ity of tablet 00:00: mouth at [place] 00 bedtime. Medical Branch amLODIPine 0 Yes [id number] 2.5mg Take 1 Univers 2.5 mg 9-13 tablet by ity of tablet 00:00: mouth in [place] 00 the Medical morning. Branch metoprolol Yes [id number] 12.5mg Take 0.5 Univers tartrate 25 9-13 tablets by it y of mg tablet 00:00: [place] 00 the Medical morning Branch and 0.5 tablets in the evening. atorvastati Yes [id number] 40mg Take 1 Univers n 40 mg 9-13 tablet by ity of tablet 00:00: mouth at [place] 00 bedtime. Medical Branch HYDROcodone Yes 1{tbl} 1 tablet, Univers -acetaminop 11-27 Oral, ity of hen (NORCO 21:16: Q6HPRN, [place] 5) 5-325 mg 22 Starting Medi wale tablet 1 on [facility] tablet 11/27/22 at 1616, Until Discontinu ed, Routine, Pain (scale 4-6) acetaminoph Yes 650mg 650 mg, Un yoana en 11-27 Oral, ity of (TYLENOL) 21:12: Q6HPRN, [place] tablet 650 39 Starting Medic al mg on [facility] Branch 11/27/22 at 1612, Until Discontinu ed, Routine, Pain (scale 1-3) nitroglycer 2022- No [id number] .8mg 0.8 mg, Univers in 11-27 Sublingual ity of (NITROSTAT) 20:15: 19:15 , ONCE, 1 [place] sublingual 00 :00 dose, On Medic al tablet 0.8 [facility] Branch mg 11/27/22 at 1515, KASSIDY iopamidol 2022- No [id number] 80mL 80 mL, U nivers (ISOVUE 9-12 [...] dose, On Medic al mg tablet 1 [facility] tablet 11/26/22 at 1345, Routine metoprolol Yes 12.5mg 12.5 mg, U nivers tartrate 11-26 Oral, BID, ity o f (LOPRESSOR) 13:00: First dose [place] tablet 12.5 00 on Mon Medica l mg 11/26/22 at Branch 0800, Until Discontinu ed, Routine perflutren 2022- No [id number] 3mL 3 mL, IV Univers protein-A 11-25 Push, ity of microsphr 15:00: 15:00 ONCE, 1 [place] (OPTISON) 00 :00 dose, On Medica l injection 3 [place] Branch mL 11/25/22 at 1000, Routine pantoprazol Yes 40mg 40 mg, Univ ers e 11-25 Oral, ity of (PROTONIX) 14:00: DAILY, [place] EC tablet 00 First dose Medi wale 40 mg on [place] 11/25/22 at 0900, Until Discontinu ed, Routine clopidogreL 2022- No 75mg 75 mg, Uni vers (PLAVIX) 75 11-25 Oral, ity of mg tablet 14:00: 14:47 DAILY, [place] 75 mg 00 :08 First dose Medical on [place] [facility] 11/25/22 at 0900, Until Discontinu ed, [...] First dose [place] mg 00 on [facility] Medical 11/24/22 at Branch 2100, [...] e, Dosing and Testing: &nbs p;FOR [facility] ONLY &nbs p; [...] mouth Center nightly. metroNIDAZO 2022- No 500mg [id number] Take [address] [facility] (FLAGYL) 08-03 [id number] tablet [facility] 500 MG 00:00: 00:00 3D [...] mouth Medica l tablet 09 :00 daily. [place] divalproex 2018-03 Yes epilepsy 125mg QD Take [address] (DEPAKOTE) 2-04 mg by Lukes 125 MG EC 10:36: mouth Medical tablet 04 daily. [place] divalproex 2018-03 Yes epilepsy 125mg QD Take [address] (DEPAKOTE) 2-04 mg by Lukes 125 MG EC 10:36: mouth Medical tablet 04 daily. [place] divalproex 2018-03 Yes epilepsy 125mg QD Take [address] (DEPAKOTE) 2-04 mg by Lukes 125 MG EC 10:36: mouth Medical tablet 04 daily. [place] famotidine 2018-03 Yes 1{tbl} Take 1 [facility] [...] Source Respiratory rate 2022-11-29 01:59:00 18 /min [facility] Oxygen saturation in 2022-11-29 01:59:00 93 /min [facility] Arterial blood by [facility] Pulse oximetry Branch Systolic blood 2022-11-29 01:23:00 126 mm[Hg] [facility] Diastolic blood 2022-11-29 01:23:00 75 mm[Hg] [facility] Heart rate 2022-11-29 01:23:00 72 /min [facility] Body temperature 2022-11-29 01:23:00 36.94 Nahomi [facility] Body weight 2022-11-28 05:16:00 70.421 kg [facility] BMI 2022-11-28 05:16:00 28.40 kg/m2 [facility] Body height 2022-11-24 16:52:00 157.5 cm [facility] WEIGHT 2022-11-12 07:05:00 74.6 [...] Heart rate 2022-08-11 12:33:33 76 /min [facility] Respiratory rate 2022-08-11 12:33:33 18 /min [facility] Oxygen saturation in 2022-08-11 12:33:33 97 /min [facility] Arterial blood by Medical Ce nter Pulse oximetry Body temperature 2022-08-11 12:33:11 36.56 Nahomi [facility] Systolic blood 2022-08-11 12:32:45 129 mm[Hg] [facility] Diastolic blood 2022-08-11 12:32:45 80 mm[Hg] [facility] Body height 2022-08-05 19:35:[address] [facility] Body weight 2022-08-05 19:35:[address] [facility] BMI 2022-08-05 19:35:00 23.78 kg/m2 [facility] Procedures Procedure Date / Time Performing Clinician Source Performed MAGNESIUM 2022-11-28 09:22:00 Casi Maddox [facility] BASIC METABOLIC PANEL 2022-11-28 09:22:00 Casi Maddox [facility] (NA, K, CL, CO2, Medical Branch GLUCOSE, BUN, CREATININE, CA) CBC WITH DIFF 2022-11-28 09:22:00 Casi Maddox [facility] CT ANGIOGRAPHY 2022-11-27 19:24:21 Tori Hanna [facility] CORONARIES WITH CARDIAC [facility] CALCIUM SCORE CT HEAD WO CONTRAST 2022-11-27 17:24:05 Milagros Choe [facility] CBC WITHOUT DIFF 2022-11-27 09:15:00 Joel Willis [facility] MAGNESIUM 2022-11-26 09:21:00 [facility] HE[facility] FUNCTION PANEL 2022-11-26 09:21:00 Joel Willis [facility] ([id number]) (ALB,T.PRO,BILI Medical Branch T,BU/BC,ALT,AST,ALK PHOS) BASIC METABOLIC PANEL 2022-11-26 09:21:00 Paul [facility] (NA, K, CL, CO2, Medical Branch GLUCOSE, BUN, CREATININE, CA) CBC WITH DIFF 2022-11-26 09:21:00 [facility] ACTIVATED PARTIAL 2022-11-25 22:48:00 Lazaro [facility] EKG-12 LEAD 2022-11-25 17:52:00 [facility]IN I 2022-11-25 17:51:00 Philip Chris [facility]OUTINE & RHYTHM 2022-11-25 17:39:36 Joel Willis [facility] STRIP [facility] ACTIVATED PARTIAL 2022-11-25 15:42:00 Lazaro [facility] TRANSTHORACIC ECHO (TTE) 2022-11-25 14:57:34 Joel Willis [facility] COMPLETE W/ CONTRAST Medical [facility] MAGNESIUM 2022-11-25 09:20:00 Lazaro [facility] BASIC METABOLIC PANEL 2022-11-25 09:20:[address] [facility] (NA, K, CL, CO2, Medical Branch GLUCOSE, BUN, CREATININE, CA) URINE DRUG (IMMUNOASSAY) 2022-11-25 07:32:00 Joel Willis [facility] - COMPREHENSIVE DRUG Medical [facility] SCREEN GC & CHLAMYDIA AMPLIFIED 2022-11-25 07:32:00 Joel Willis [facility] ASSAY [facility] URINE DRUG (LCMSMS) - 2022-11-25 07:32:[address] [facility] SYNTHETIC OPIATES PANEL Medical Branch CBC WITHOUT DIFF 2022-11-25 07:31:00 Lazaro [facility] ACTIVATED PARTIAL 2022-11-25 07:31:00 Lazaro [facility] URINALYSIS 2022-11-25 07:31:00 Lazaro [facility] MAGNESIUM 2022-11-25 01:31:00 [facility] METABOLIC PANEL 2022-11-25 01:31:00 [facility] (NA, K, CL, CO2, Medical Branch GLUCOSE, BUN, CREATININE, CA) ACTIVATED PARTIAL 2022-11-25 01:31:00 Lazaro [facility] TROPONIN I 2022-11-24 23:01:00 Lazaro [facility] BLOOD CULTURE SCREEN 2022-11-24 22:57:00 Lazaro [facility] XR CHEST 1 VW 2022-11-24 21:30:59 Lazaro [facility] US ABDOMEN LIMITED 2022-11-24 21:30:31 Joel Willis [facility] XR CHEST 1 VW 2022-11-24 20:37:00 Lazaro [facility] CT HEAD WO CONTRAST 2022-11-24 18:42:54 Lazaro [facility] ACTIVATED PARTIAL 2022-11-24 17:43:00 Lazaro [facility] CBC WITH DIFF 2022-11-24 16:39:00 Lazaro [facility] MRSA / MSSA SCREEN BY 2022-11-24 16:39:00 Lazaro [facility] PCR, NARES [facility] TROPONIN I 2022-11-24 16:34:00 Lazaro [facility] THYROID STIMULATING 2022-11-24 16:34:00 Lazaro [facility] HORMONE [facility] HEPATIC FUNCTION PANEL 2022-11-24 16:34:00 Joel Willis [facility] ([id number]) (ALB,T.PRO,BILI Medical Branch T,BU/BC,ALT,AST,ALK PHOS) BASIC METABOLIC PANEL 2022-11-24 16:34:00 Lazaro [facility] (NA, K, CL, CO2, Medical Branch GLUCOSE, BUN, CREATININE, CA) LIPID PANEL 2022-11-24 16:34:00 Lazaro [facility] ([id number])(TOTAL Medical Branch CHOLESTEROL, TRIGLYCERIDES, HDL) GLYCOSYLATED HEMOGLOBIN 2022-11-24 16:34:00 Joel Willis [facility] (A1C) [facility] PROTHROMBIN TIME / INR 2022-11-24 16:34:00 Joel Wlilis [facility] HEPATITIS B SURFACE 2022-11-24 16:34:00 Lazaro [facility] ANTIBODY Medical Branch HEPATITIS B SURFACE 2022-11-24 16:34:00 Lazaro [facility] ANTIGEN [facility] HCV ANTIBODY 2022-11-24 16:34:00 Lazaro [facility] HEPATITIS A VIRUS 2022-11-24 16:34:00 [facility] ANTIBODY IGM [facility] N-TERMINAL PRO-BNP 2022-11-24 16:34:00 Lazaro [facility] HIV 1/2 AG-AB WITH 2022-11-24 16:34:00 Lazaro [facility] REFLEX [facility] EKG-12 LEAD 2022-11-24 16:22:20 [facility] BASIC METABOLIC PANEL 2022-08-11 04:41:00 Clifton De Luna [facility] Center MAGNESIUM 2022-08-11 04:41:00 Kristin Shah [facility] CALCIUM, IONIZED 2022-08-11 04:41:00 [facility] PHOSPHORUS 2022-08-11 04:41:00 [facility] CBC W/PLT COUNT & AUTO 2022-08-11 04:41:00 [facility] [place] DIFFERENTIAL [place] CBC W/PLT COUNT & AUTO 2022-08-11 04:41:00 [facility] BASIC METABOLIC PANEL 2022-08-10 16:09:00 [facility] SODIUM, RANDOM URINE 2022-08-10 09:33:00 [facility] UREA NITROGEN, RANDOM 2022-08-10 09:33:00 [facility] URINE [facility] CREATININE, RANDOM URINE 2022-08-10 09:33:00 [facility] OSMOLALITY, URINE 2022-08-10 09:33:[address] [facility] TSH/FREE T4 IF INDICATED 2022-08-10 09:33:00 [facility] CORTISOL 2022-08-10 09:33:00 [facility] OSMOLALITY, SERUM 2022-08-10 09:33:[address] [facility] T4, FREE 2022-08-10 09:33:00 [facility] CBC (HEMOGRAM ONLY) 2022-08-10 05:06:00 [facility] BASIC METABOLIC PANEL 2022-08-10 05:06:00 [facility] MAGNESIUM 2022-08-10 05:06:00 [facility] CBC (HEMOGRAM ONLY) 2022-08-09 03:38:00 [facility] BASIC METABOLIC PANEL 2022-08-09 03:38:00 [facility] MAGNESIUM 2022-08-09 03:38:00 [facility] CBC (HEMOGRAM ONLY) 2022-08-08 04:25:00 [facility] BASIC METABOLIC PANEL 2022-08-08 04:25:00 [facility] B-TYPE NATRIURETIC 2022-08-08 04:25:00 [facility] Medical FACTOR (BNP) [facility] STD PANEL - CT/GC RNA 2022-08-07 16:52:[address] [facility] FUNGUS CULTURE + SMEAR 2022-08-07 10:22:00 [facility] ANAEROBIC CULTURE 2022-08-07 10:22:00 [facility] WOUND CULTURE + GRAM 2022-08-07 10:22:00 [facility] STAIN [facility] RADIOLOGIC GUIDANCE & 2022-08-07 10:20:00 Fredrick [facility] INTERP/SPEC [facility] BASIC METABOLIC PANEL 2022-08-07 03:42:[address] [facility] CBC (HEMOGRAM ONLY) 2022-08-07 03:41:00 [facility] CT ABDOMEN/PELVIS WITH 2022-08-06 00:22:00 Aida Alcala I [facility] IV CONTRAST [facility] SCREEN, URINE 2022-08-05 21:06:00 OnRonal day [facility] CBC W/PLT COUNT & AUTO 2022-08-05 20:40:00 Aida Alcala [facility] DIFFERENTIAL [facility] BASIC METABOLIC PANEL 2022-08-05 20:40:00 [facility]/INR 2022-08-05 20:40:00 [facility] TYPE AND SCREEN, 2022-08-05 20:40:00 Aida Alcala [facility] AUTOMATED [facility] CBC W/PLT COUNT & AUTO 2022-08-05 20:40:00 [facility] DIFFERENTIAL [facility] (CELLAVISION MANUAL 2022-08-05 20:40:00 [facility] DIFF) [facility] TRANSTHORACIC ECHO FOR 2022-08-03 13:59:39 Unknown, Hl7 Doctor C [facility] RES[facility] Center BASIC METABOLIC PANEL 2022-08-03 04:31:[address] [facility] CBC (HEMOGRAM ONLY) 2022-08-03 04:31:00 [facility] CBC W/PLT COUNT & AUTO 2022-08-02 13:09:00 [facility] BASIC METABOLIC PANEL 2022-08-02 13:09:00 [facility] CBC W/PLT COUNT & AUTO 2022-08-02 13:09:00 [facility] (CELLAVISION MANUAL 2022-08-02 13:09:00 [facility]) [place] MYOCARDIAL PERFUSION 2022-08-01 13:31:00 [facility] SPECT, PHARM [facility] TREADMILL 2022-08-01 11:39:56 Unknown, 7 [facility](NON-NUCLEAR Center TREADMILL) ECG 12-LEAD 2022-08-01 10:14:26 Unknown, 7 [facility] ECG 12-LEAD 2022-08-01 10:14:26 Unknown, 7 [facility] ECG 12-LEAD 2022-08-01 10:13:38 Unknown, 7 [facility] ECG 12-LEAD 2022-08-01 10:13:38 Unknown, 7 [facility] CBC W/PLT COUNT & AUTO 2022-08-01 04:47:00 Leonid Harris [facility] BASIC METABOLIC PANEL 2022-08-01 04:47:00 Leonid Harris [facility] MAGNESIUM 2022-08-01 04:47:00 Leonid Harris [facility] PHOSPHORUS 2022-08-01 04:47:00 Leonid Harris [facility] HEMOGLOBIN A1C 2022-08-01 04:47:[address] [facility] PT/APTT 2022-08-01 04:47:00 [facility] HCG, QUANTITATIVE, 2022-08-01 04:47:00 [facility] Center TYPE AND SCREEN, 2022-08-01 04:47:00 Leonid Harris [facility] AUTOMATED Center CBC W/PLT COUNT & AUTO 2022-08-01 04:47:00 Leonid Harris [facility] DIFFERENTIAL Center (CELLAVISION MANUAL 2022-08-01 04:47:00 Leonid Harris [facility] DIFF) Center 2D ECHO W/ DOPPLER 2022-07-31 15:20:04 [facility] (CW/PW/COLOR) [facility] ECG 12-LEAD 2022-07-31 15:01:36 [facility] ECG 12-LEAD 2022-07-31 15:01:36 Unknown, Hl7 [facility] US ENDOVAGINAL EV 2022-07-31 12:52:00 [facility] US PELVIS 2022-07-31 12:52:00 [facility] US DOPPLER 2022-07-31 12:52:00 [facility] BASIC METABOLIC PANEL 2022-07-31 03:09:00 [facility] MAGNESIUM 2022-07-31 03:09:00 [facility] PHOSPHORUS 2022-07-31 03:09:00 [facility] CBC W/PLT COUNT & AUTO 2022-07-31 03:09:00 [facility] LIPID PANEL 2022-07-31 03:09:00 [facility] CBC W/PLT COUNT & AUTO 2022-07-31 03:09:00 FutalaDewayne vazquez Pis [facility] DIFFERENTIAL An Center XR CHEST 1 VIEW PORTABLE 2022-07-30 16:42:00 Dewayne Reilly P is [facility] Medical / BEDSIDE An Center CBC W/PLT COUNT & AUTO 2022-07-30 15:38:00 Dewayne Reilly [facility] DIFFERENTIAL An Center BASIC METABOLIC PANEL 2022-07-30 15:38:00 Dewayne Reilly [facility] Medical An Center PROTHROMBIN TIME/INR 2022-07-30 15:38:00 Dewayne Reilly Pis [facility] Medical An Center MAGNESIUM 2022-07-30 15:38:00 Pierosaint alphonsus eagleDewayne vazquez [facility] An Center CBC W/PLT COUNT & AUTO 2022-07-30 15:38:00 Dayron Foster [facility] Medical DIFFERENTIAL [facility] Plan of Care Planned Activity Planned Date Details Comments Source Future Scheduled 2025-07-31 Lipid panel (procedure) [facility] Test 00:00:00 [code = 04261432] Medical Ce nter Future Scheduled 2022-11-16 Influenza [...] [facility] 00:00:00 [code = 67259622] Medical Ce nter Future Scheduled 2021-03-18 DEPRESSION [...] cervix Medical C enter (procedure) [code = 735978721] Future Scheduled 1997 Screening for malignant [facility] Test 00:00:00 neoplasm of cervix Medical C enter (procedure) [code = 156863266] Future Scheduled 1995 DTAP/TDAP/TD VACCINES (1 [facility] [...] screening Medical Cent er (procedure) [code = 186279419] Future Scheduled [address] [...] colon Medical Ce nter (procedure) [code = 725292001] Future Scheduled 1976 Screening for malignant [facility] Test 00:00:00 neoplasm of colon Medical Ce nter (procedure) [code = 005724023] Future Scheduled 1976 Screening for malignant [facility] Test 00:00:00 neoplasm of colon Medical Ce nter (procedure) [code = [id number]] Future Scheduled 1976 Screening for malignant [facility] 00:00:00 neoplasm of colon Medical Ce nter (procedure) [code = 751573838] Future Scheduled 1976 Sigmoidoscopy [code = [facility]] Medical Cente r Future Scheduled 1976 CT Colonography (combo) [facility] 00:00:00 [code = CT Colonography [facility] (combo)] Future Scheduled 1976 Screening for malignant [facility] 00:00:00 neoplasm of colon Medical Ce nter (procedure) [code = 941760038] Future Scheduled 1976 Screening for malignant [facility] Test 00:00:00 neoplasm of colon Medical Ce nter (procedure) [code = 047739801] Future Scheduled 1976 Screening for malignant [facility] 00:00:00 neoplasm of colon Medical Ce nter (procedure) [code = 239535668] Future Scheduled 1976 Screening for malignant [facility] 00:00:00 neoplasm of colon Medical Ce nter (procedure) [code = 258802496] Future Scheduled 1976 Sigmoidoscopy [code = [facility] S[facility]oscopy] Medical Cente r Encounters Start End Encounter Admission Attending Care Care Encounter Source Date/Time Date/Time Type Type Clinicians Facility Department ID 2022-11-07 Inpatient ER ZAHRA PASCUAL [facility] [id number] [facility] 19:39:43 2022-11-06 Inpatient ER SUSIE TAI [facility] [id number] [facility] 11:21:11 2022-11-06 Inpatient ER SUSIE TAI [facility] [id number] [facility] 10:39:32 2022-11-05 Inpatient ER SUSIE TAI [facility] [id number] [facility] 13:31:19 2022-11-03 Inpatient ER SUSIE TAI [facility] [id number] [facility] 10:45:25 2022-11-01 Inpatient ER SLEH [facility] [id number] [facility] 09:28:17 2022-11-01 Inpatient ER SLEH [facility] [id number] [facility] 09:11:47 2022-10-31 Inpatient ER BERSHAD, [facility] [id number] [facility] 00:51:03 KATHY 2022-10-31 Inpatient ER BERSHAD, [facility]H [facility] [id number] [facility] 00:50:54 KATHY 2022-10-30 Inpatient ER SLEH [facility] [id number] [facility] 15:54:13 2022-10-30 Inpatient ER BERSHAD, [facility]H [facility] [id number] [facility] 09:14:25 KATHY 2022-10-30 Inpatient ER BERSHAD, SLEH [facility] [id number] SLEH 05:26:11 KATHY 2022-10-29 Inpatient ER BERSHAD, SLEH [facility] [id number] SLEH 17:09:25 KATHY 2022-10-29 Inpatient ER TEXTONIE, SLE [facility]H [id number] SLEH 03:50:03 MURRAY 2022-12-27 2022-12-27 Outpatient SFA SFA [id number] Martin 10:33:43 10:33:43 1012 F Tello 2022-11-29 2022-11-29 Transition MONSE Sotelo [id number] [facility] 00:00:00 00:00:00 of Care Desi REDDY 350.1.13.10 ity of KARINA 4.2.7.2.686 David vitale [id number] [place] [address] [address] 2022-11-24 2022-11-28 [facility] [place] 1.2.840.114 [id number] [facility] 11:15:00 21:45:00 Encounter [facility]13.1 [facility] 4.2.7.2.686 [place] [id number] [place] [address] [address] 2022-11-24 2022-11-28 Inpatient Johnny YODER [facility] [id number] [facility] 11:15[facility]22-11-28 Inpatient Johnny YODER [facility] [id number] Univers 11:15:00 21:45:00 [facility] 2022-10-29 2022-11-13 [id number] [facility] 02:56:00 21:30:00 GOYO 2022-11-06 2022-11-06 Inpatient ER SLEH SLEH [id number] SLEH 08:32:27 00:00:00 2022-11-05 2022-11-05 Outpatient SLEH [facility]H [id number] [facility]H 00:00:00 00:00:00 2022-11-05 2022-11-05 Outpatient SLEH [facility] [id number] [facility] 00:00:00 00:00:00 2022-11-02 2022-11-02 Inpatient ER SUSIE TAI [facility] [id number] SLEH 10:58:08 00:00:00 2022-10-29 2022-10-29 Inpatient ER PITTARD, SLEH SLEH [id number] SLEH 10:12:32 23:59:00 MURRAY 2022-10-29 2022-10-29 Inpatient ER PITTARD, SLEH SLEH [id number] SLEH 10:12:49 00:00:00 MURRAY 2022-10-29 2022-10-29 Inpatient ER PITTARD, SLEH SLEH [id number] SLEH 10:12:41 00:00:00 MURRAY 2022-08-12 2022-08-12 Stacy Jenkins [facility] [id number] 00:00:00 00:00:00 [facility] 2022-08-05 2022-08-11 Hospital ER Popeye Mcneal [facility] [id number] 18:09:00 14:47:00 Encounter [facility]cal[facility] 2022-08-05 2022-08-11 Inpatient ER [facility] Gynecology [id number] SLE 18:09:00 14:47:00 [facility] 2022-08-05 2022-08-05 Travel [facility] [id number] [facility] 00:[facility]:00 [facility] 2022-07-31 2022-08-03 [facility] UR Les Al [facility] [id number] 04:37:00 20:00:00 Encounter Nena Waller [facility] Matias Leonid Orr Watrous 2022-07-31 2022-08-03 Inpatient UR [facility] Med [id number] [facility] 04:37:00 20:00:00 [facility] 2022-07-30 2022-07-31 Inpatient ER [facility] Gynecology [id number] [facility] 14:07:00 04:04:00 [place] 2022-07-30 2022-07-31 [facility] ER [facility], [facility] [id number] [facility] 14:07:00 04:04:00 Encounter [facility] 2022-07-31 2022-07-31 Orders [facility] [id number] 00:00:00 00:00:[address] [facility] 2022-07-30 2022-07-30 Travel [facility] [id number] [facility] 00:[facility]00 00:[facility]:00 [facility] Results Test Description Test Time Test Comments Results Result Comments Source HEPATIC FUNCTION PANEL (46586) (ALB,T.PRO,BILI 2022-11-26 13 :08:17 T,BU/BC,ALT,AST,ALK PHOS) Test Item Value Reference Range Interpretation Comme nts TOTAL BILI (test code = 3487221397) 0.9 mg/dL 0.1-1.1 BILI UNCON (test code = 2281334314) 0.6 mg/dL 0.1-1.1 BILI CONJ (test code = 4529851230) 0.0 mg/dL 0.0-0.3 T PROTEIN (test code = 4482263463) 6.5 g/dL 6.3-8.2 ALBUMIN (test code = 9724016818) 4.0 g/dL 3.5-5.0 ALK PHOS (test code = 1433353842) 527 U/L 34-122 H ALTv (test code = 1742-6) 116 U/L 5-35 H AST(SGOT) (test code = 3565297457) 76 U/L 13-40 H Lab Interpretation (test code = 64164-7) Abnormal [facility] METABOLIC PANEL (NA, K, CL, CO2, GLUCOSE, BUN, CREATININE, CA)2022-11-26 10:08:01 Test Item Value Reference Range Interpretation Comments NA (test code = 136 mmol/L 135-145 7095014741) K (test code = 4.1 mmol/L 3.5-5.0 6739771820) CL (test code = 100 mmol/L 98-108 0671670594) CO2 TOTAL (test code 28 mmol/L 23-31 = 8300385247) AGAP (test code = 8 2-16 3157906995) BUN (test code = 17 mg/dL 7-23 6683138237) GLUCOSE (test code = 87 mg/dL 70-110 3451942819) CREATININE (test code 1.00 mg/dL 0.50-1.04 = 3424375272) CALCIUM (test code = 9.3 mg/dL 8.6-10.6 9534003131) eGFR (test code = 59.7 mL/min/1.73m2 1229580012) SUE (test code = SUE) Association of [...] or urine or abnormalities in imaging tests). [facility]01 Test Item Value Reference Range Interpretation Comments MAGNESIUM (test code = 4887576284) 1.8 mg/dL 1.7-2.4 Lab Interpretation (test code = Normal 69747-9) [facility] WITH [id number] 09:36:22 Test Item Value Reference Range Interpretation Comments WBC (test code = 4.18 See_Comment L [Automated 6690-2) message] The sy stem which generated this result transmitted reference range : 4.30 - 11.10 10*3/?L. The reference range was not used to interpret this result as normal/abnormal . RBC (test code = 3.39 See_Comment L [Automated 109-8) message] The sy stem which generated this [...] RDW-SD (test code = 42.7 fL 39.0-49.9 68295-1) RDW-CV (test code = 12.5 % 12.0-15.5 788-0) PLT (test code = 151 See_Comment L [Automated 777-3) message] The sy stem which generated this result transmitted reference range : 166 - 358 10*3/ ?L. The reference r elizabeth was not used to interpret this result as normal/abnormal . MPV (test code = 9.4 fL 9.5-12.9 L 01521-7) NRBC/100 WBC (test 0.0 See_Comment [Automat ed code = 5726133076) message] The system which generated this result transmitted reference range : 0.0 - 10.0 /100 WBCs. The refer ence range was not u sed to interpret th is result as normal/abnormal . NRBC x10^3 (test code See_Comment [Auto mated = 3049801459) message] The s ystem which generated this result transmitted reference range : 10*3/?L. The reference range was not used to interpret this result as normal/abnormal . GRAN MAT (NEUT) % 68.0 % (test code = 770-8) IMM GRAN % (test code 0.00 % = 7153288650) LYMPH % (test code = 17.7 % 736-9) MONO % (test code = 9.1 % 5905-5) EOS % (test code = 4.5 % 713-8) BASO % (test code = 0.7 % 706-2) GRAN MAT x10^3(ANC) 2.84 10*3/uL 1.88-7.09 (test code = 6878780804) IMM GRAN x10^3 (test 0.00-0.06 code = 6783057932) LYMPH x10^3 (test code 0.74 10*3/uL 1.32-3.29 L = 731-0) MONO x10^3 (test code 0.38 10*3/uL 0.33-0.92 = 742-7) EOS x10^3 (test code = 0.19 10*3/uL 0.03-0.39 711-2) BASO x10^3 (test code 0.03 10*3/uL 0.01-0.07 = 704-7) Lab Interpretation Abnormal (test code = 40612-0) [facility] METABOLIC PANEL (NA, K, CL, CO2, GLUCOSE, BUN, CREATININE, CA)2022-11-25 09:47:18 Test Item Value Reference Range Interpretation Comments NA (test code = 135 mmol/L 135-145 8697999981) K (test code = 5.0 mmol/L 3.5-5.0 Slight 0365340051) hemolysis CL (test code = 100 mmol/L 98-108 5045693637) CO2 TOTAL (test code 28 mmol/L 23-31 = 8616272227) AGAP (test code = 7 2-16 0990561766) BUN (test code = 20 mg/dL 7-23 Slight 5395901736) hemolysis GLUCOSE (test code = 109 mg/dL 70-110 8339299058) CREATININE (test code 1.20 mg/dL 0.50-1.04 H = 0366434068) CALCIUM (test code = 9.2 mg/dL 8.6-10.6 1880405617) eGFR (test code = 48.4 mL/min/1.73m2 7099239308) SUE (test code = SUE) Association of [...] tests). Lab Interpretation Abnormal (test code = 90642-1) [facility] 09:42:55 Test Item Value Reference Range Interpretation Comments MAGNESIUM (test code = 7448130584) 3.1 mg/dL 1.7-2.4 H Lab Interpretation (test code = Abnormal 90937-1) [facility] A VIRUS ANTIBODY [id number] 23:52:42 Test Item Value Reference Range Interpretation Comments HAVM 0.05 Semi-Quantitative (test code = 10965-6) SUE (test code = HAVAb IgM Interpretative SUE) Information: Reactive greater than or equal to 1.2 Biotin has been reported to cause a negative bias, interpret results relative to patient's use of biotin. [facility] [id number] 23:35:43 Test Item Value Reference Range Interpretation Comments TROPONIN I (test code = 0.911 ng/mL <=0.034 H 8691974296) SUE (test code = SUE) Reference (Normal) [...] biotin. Lab Interpretation Abnormal (test code = 22293-2) [facility] AG-AB WITH [id number] 21:57:58 Test Item Value Reference Range Interpretation Comments HIV 0.12 Negative Semi-quantitative (test code = 09713-2) SUE (test code = Non-reactive for HIV-1 SUE) antigen and HIV-1/HIV-2 antibodies. ?No laboratory evidence of HIV infection. ?Repeat in 2-4 weeks if acute HIV infection is suspected. [facility] [id number] 21:57:58 Test Item Value Reference Range Interpretation Comments HCV Ab (test code = 71292-7) Negative HCV Semi-Quantitative (test code = 0.01 04440-7) [facility] SURFACE [id number] 21:57:58 Test Item Value Reference Range Interpretation Comments HBsAB (test code = Negative 0298826262) HBsAb 0.00 mIU/mL Semi-Quantitative (test code = 3721833577) SUE (test code = Interpretation: SUE) ?Hepatitis B Surface Antibody ? Negative - Patient is considered to be not immune to infection with HBV. ? ? Positive - Anti-HBs detected at greater than or equal to 12 mIU/mL. ?Patient is considered to be immune to infection with HBV. ? [facility] SURFACE [id number] 21:40:35 Test Item Value Reference Range Interpretation Comments HBsAg Semi-Quantitative (test code = 0.14 Negative 5195-3) [facility]YCOSYL[facility] HEMOGLOBIN (A1C)2022-11-24 18:18:35 Test Item Value Reference Range Interpretation Comments HGB A1C (test code = 4.6 % 4.0-5.7 4548-4) SUE (test code = SUE) Reference RangesNormal: <5.7%Prediabetes: 5.7 - 6.4%Diabetes: > 6.5% Lab Interpretation (test Normal code = 54449-6) [facility] STIM[facility] [id number] 17:58:24 Test Item Value Reference Range Interpretation Comments TSH (test code = 2.03 See_Comment [Automated message] 0456858254) The system [employer] generated this result transmitted ref erence range: 0.45 - 4 .70 mIU/L. The refe rence range was not u sed to interpret this result as normal/abnor mal. Lab Interpretation (test Normal code = 57720-6) [facility]OP[facility] [id number] 17:39:48 Test Item Value Reference Range Interpretation Comments TROPONIN I (test code = 1.340 ng/mL <=0.034 H 1796195707) SUE (test code = SUE) Reference (Normal) [...] biotin. Lab Interpretation Abnormal (test code = 51357-2) [facility] Henderson[facility]-TERMINAL [id number] 17:39:48 Test Item Value Reference Range Interpretation Comments NT-proBNP (test code = 2520 pg/mL <=125 H 00647-1) SUE (test code = SUE) Positive: Heart Failure Likely Lab Interpretation (test Abnormal code = 55328-9) [facility] METABOLIC PANEL (NA, K, CL, CO2, GLUCOSE, BUN, CREATININE, CA)2022-11-24 17:30:04 Test Item Value Reference Range Interpretation Comments NA (test code = 135 mmol/L 135-145 0627198542) K (test code = 3.9 mmol/L 3.5-5.0 3459606203) CL (test code = 97 mmol/L 98-108 L 4143719423) CO2 TOTAL (test code = 27 mmol/L 23-31 4094932618) AGAP (test code = 11 2-16 5771194729) BUN (test code = 23 mg/dL 7-23 1684063535) GLUCOSE (test code = 163 mg/dL 70-110 H 2198133101) CREATININE (test code = 1.40 mg/dL 0.50-1.04 H 5269456688) CALCIUM (test code = 9.4 mg/dL 8.6-10.6 9719662575) eGFR (test code = 40.5 mL/min/1.73m2 0258568400) SUE (test code = SUE) Association of [...] tests). Lab Interpretation Abnormal (test code = 32074-1) [facility] (20302) (ALB,T.PRO,BILI T,BU/BC,ALT,AST,ALK PHOS)2022-11-24 17:30:04 Test Item Value Reference Range Interpretation Comments TOTAL BILI (test code = 4563228959) 1.0 mg/dL 0.1-1.1 BILI UNCON (test code = 2307560684) 0.6 mg/dL 0.1-1.1 BILI CONJ (test code = 0830490210) 0.0 mg/dL 0.0-0.3 T PROTEIN (test code = 8259615787) 6.8 g/dL 6.3-8.2 ALBUMIN (test code = 8526980205) 4.1 g/dL 3.5-5.0 ALK PHOS (test code = 5115532500) 746 U/L 34-122 H ALTv (test code = 1742-6) 183 U/L 5-35 H AST(SGOT) (test code = 4189844193) 196 U/L 13-40 H Lab Interpretation (test code = Abnormal 30604-2) [facility] HendersonLIPID PAN[facility] (94038)(TOTAL CHOLESTEROL, TRIGLYCERIDES, HDL)2022-11-24 17:30:04 Test Item Value Reference Range Interpretation Comments CHOL (test code = 5878296520) 113 mg/dL 120-200 L HDL (test code = 9907501103) 62 mg/dL >=50 HDLC RATIO (test code = 7716181790) 1.8 <=4.5 TRIG (test code = 7075292052) 71 mg/dL 30-170 LDL CHOL (test code = 17021-3) 37 mg/dL <=160 VLDL (test code = 4968602467) 14 mg/dL 5-60 Lab Interpretation (test code = Abnormal 09329-2) [facility] WITH [id number] 16:55:22 Test Item Value Reference Range Interpretation Comments WBC (test code = 6.05 See_Comment [Automated 2017-2) message] The sy stem which generated this result transmitted reference range : 4.30 - 11.10 10*3/?L. The reference range was not used to interpret this result as normal/abnormal . RBC (test code = 3.21 See_Comment L [Automated 274-8) message] The sy stem which generated this [...] RDW-SD (test code = 44.3 fL 39.0-49.9 55409-5) RDW-CV (test code = 12.9 % 12.0-15.5 788-0) PLT (test code = 203 See_Comment [Automated 777-3) message] The sy stem which generated this result transmitted reference range : 166 - 358 10*3/ ?L. The reference r elizabeth was not used to interpret this result as normal/abnormal . MPV (test code = 9.9 fL 9.5-12.9 38053-2) NRBC/100 WBC (test 0.0 See_Comment [Automat ed code = 8865022651) message] The system which generated this result transmitted reference range : 0.0 - 10.0 /100 WBCs. The refer ence range was not u sed to interpret th is result as normal/abnormal . NRBC x10^3 (test code See_Comment [Auto mated = 7865426942) message] The s ystem which generated this result transmitted reference range : 10*3/?L. The reference range was not used to interpret this result as normal/abnormal . GRAN MAT (NEUT) % 59.6 % (test code = 770-8) IMM GRAN % (test code 0.20 % = 2101157578) LYMPH % (test code = 28.3 % 736-9) MONO % (test code = 9.1 % 5905-5) EOS % (test code = 2.5 % 713-8) BASO % (test code = 0.3 % 706-2) GRAN MAT x10^3(ANC) 3.61 10*3/uL 1.88-7.09 (test code = 2637035289) IMM GRAN x10^3 (test 0.00-0.06 code = 5168496966) LYMPH x10^3 (test code 1.71 10*3/uL 1.32-3.29 = 731-0) MONO x10^3 (test code 0.55 10*3/uL 0.33-0.92 = 742-7) EOS x10^3 (test code = 0.15 10*3/uL 0.03-0.39 711-2) BASO x10^3 (test code 0.01-0.07 = 704-7) Lab Interpretation Abnormal (test code = 40907-5) [facility] [id number] 12:43:54 Test Item Value Reference Range Interpretation Comments POC-GLUCOSE METER 138 mg/dL 70-110 H : TESTED A T [facility] 6720 (BEAKER) (test code = [place], 1538) [address]: Luggage Attendant/Techni smiley ID = [id number] for MANDA ESPARZA [id number] 06:54:19 Test Item Value Reference Range Interpretation Comments PHOSPHORUS (BEAKER) (test code = 4.2 mg/dL 2.3-4.7 604) Luggage Attendant ID - [id number] 06:54:18 Test Item Value Reference Range Interpretation Comments MAGNESIUM (BEAKER) (test code = 1.7 mg/dL 1.6-2.6 627) Luggage Attendant ID - ADMINCBC W/PLT COUNT & AUTO [id number] 06:00:54 Test Item Value Reference Range Interpretation [...] PERCENT (BEAKER) (test code = 2801) POCT-GLUCOSE [id number] 21:38:27 Test Item Value Reference Range Interpretation Comments POC-GLUCOSE METER 88 mg/dL 70-110 : TESTED A T [facility] 6720 (BEAKER) (test code = [facility]) [address]: Luggage Attendant/Techni smiley ID = [id number] for NADEGE MORALES POCT-GLUCOSE [id number] 18:19:26 Test Item Value Reference Range Interpretation Comments POC-GLUCOSE METER 93 mg/dL 70-110 : TESTED A T [facility] 6720 (BEAKER) (test code = [facility], 153) [address]: Luggage Attendant/Techni smiley ID = [id number] for NONA REESE, MANDA POCT-GLUCOSE [id number] 13:13:27 Test Item Value Reference Range Interpretation Comments POC-GLUCOSE METER 91 mg/dL 70-110 : TESTED A T [facility] 6720 (BEAKER) (test code = [facility], 153) 48952: Luggage Attendant/Techni smiley ID = [id number] for MART MARY ANN, MANDA BLOOD [id number] 12:00:51 Test Item Value Reference Range Interpretation Comments CULTURE (BEAKER) (test No growth in 5 days code = 1095) BLOOD [id number] 12:00:51 Test Item Value Reference Range Interpretation Comments CULTURE (BEAKER) (test No growth in 5 days code = 1095) The specimen volume collected for this blood culture was below the optimum (10 mL per bottle or 20 mL total). Use of lower volumes may adversely affect recovery and/or detection times of some organisms.POCT-GLUCOSE [id number] 06:46:01 Test Item Value Reference Range Interpretation Comments POC-GLUCOSE METER 102 mg/dL 70-110 : TESTED A T [facility] 6720 (BEAKER) (test code = [place], 1538) [address]: Luggage Attendant/Techni smiley ID = [id number] for Teresa Rose [id number] 05:48:23 Test Item Value Reference Range Interpretation Comments MAGNESIUM (BEAKER) (test code = 1.8 mg/dL 1.6-2.6 627) Luggage Attendant ID - [id number] 05:48:23 Test Item Value Reference Range Interpretation Comments PHOSPHORUS (BEAKER) (test code = 3.6 mg/dL 2.3-4.7 604) Luggage Attendant ID - MARCOBASIC METABOLIC [id number] 05:48:22 Test Item Value Reference Range Interpretation [...] not appl icable for dialysis patien ts Luggage Attendant ID - MARCOCBC W/PLT COUNT & AUTO [id number] 05:10:47 Test Item Value Reference Range Interpretation [...] PERCENT (BEAKER) (test code = 2801) POCT-GLUCOSE [id number] 23:44:35 Test Item Value Reference Range Interpretation Comments POC-GLUCOSE METER 93 mg/dL 70-110 : TESTED A T [facility] 6720 (AKER) (test code = [facility], 153) 98752: Luggage Attendant/Techni smiley ID = [id number] for Teresa Camejo POCT-GLUCOSE [id number] 17:35:54 Test Item Value Reference Range Interpretation Comments POC-GLUCOSE METER 108 mg/dL 70-110 : TESTED A T [facility] 6720 (AKER) (test code = [facility], 153) 03161: Luggage Attendant/Techni smiley ID = [id number] for Donna Rolle BLOOD [id number] 17:01:46 Test Item Value Reference Range Interpretation Comments CULTURE (BEAKER) (test No growth in 5 days code = 1095) The specimen volume collected for this blood culture was below the optimum (10 mL per bottle or 20 mL total). Use of lower volumes may adversely affect recovery and/or detection times of some organisms.POCT-GLUCOSE [id number] 13:41:35 Test Item Value Reference Range Interpretation Comments POC-GLUCOSE METER 99 mg/dL 70-110 : TESTED A T [facility] 6720 (BEAKER) (test code = [facility], 153) 73694: Luggage Attendant/Techni smiley ID = [id number] for Jean Marie posada, Donna BLOOD [id number] 13:01:43 Test Item Value Reference Range Interpretation Comments CULTURE (BEAKER) (test No growth in 5 days code = 1095) POCT-GLUCOSE [id number] 07:21:17 Test Item Value Reference Range Interpretation Comments POC-GLUCOSE METER 110 mg/dL 70-110 : [facility] (test code = [place], 1538) 44[address]: Luggage Attendant/Techni smiley ID = [id number] for Teresa Rose BASIC METABOLIC [id number] 05:31:26 Test Item Value Reference Range Interpretation [...] not appl icable for dialysis patien ts Luggage Attendant ID - [id number] 05:31:26 Test Item Value Reference Range Interpretation Comments MAGNESIUM (BEAKER) (test code = 2.0 mg/dL 1.6-2.6 627) Luggage Attendant ID - [id number] 05:31:26 Test Item Value Reference Range Interpretation Comments PHOSPHORUS (BEAKER) (test code = 3.6 mg/dL 2.3-4.7 604) Luggage Attendant ID - MARCOCBC W/PLT COUNT & AUTO [id number] 04:56:52 Test Item Value Reference Range Interpretation [...] PERCENT (BEAKER) (test code = 2801) POCT-GLUCOSE [id number] 00:26:59 Test Item Value Reference Range Interpretation Comments POC-GLUCOSE METER 135 mg/dL 70-110 H : TESTED A T [facility] 6720 (BEAKER) (test code = [facility], 1538) 57323: Luggage Attendant/Techni smiley ID = [id number] for Teresa Rose POCT-GLUCOSE [id number] 17:22:27 Test Item Value Reference Range Interpretation Comments POC-GLUCOSE METER 127 mg/dL 70-110 H : TESTED A T [facility] 6720 (BEAKER) (test code = [facility], 1538) [address]11: Luggage Attendant/Techni smiley ID = [id number] for Um eh, [place] POCT-GLUCOSE [id number] 17:20:21 Test Item Value Reference Range Interpretation Comments POC-GLUCOSE METER 23 mg/dL 70-110 LL : TESTED A T [facility] 6720 (BEAKER) (test code = [facility], 1538) 40155: Luggage Attendant/Techni smiley ID = [id number] for Umeh , [place] POCT-GLUCOSE [id number] 12:34:42 Test Item Value Reference Range Interpretation Comments POC-GLUCOSE METER 129 mg/dL 70-110 H : TESTED A T [facility] 6720 (BEAKER) (test code = [facility], [facility]8) [address]: Luggage Attendant/Techni smiley ID = [id number] for Um eh, [place] [id number] 08:08:41 Test Item Value Reference Range Interpretation Comments MAGNESIUM (BEAKER) (test code = 1.9 mg/dL 1.6-2.6 627) Luggage Attendant ID - [id number] 08:08:41 Test Item Value Reference Range Interpretation Comments PHOSPHORUS (BEAKER) (test code = 3.5 mg/dL 2.3-4.7 604) Luggage Attendant ID - ADMINBASIC METABOLIC [id number] 08:08:40 Test Item Value Reference Range Interpretation [...] as accur ate as Creatinine María Elena azin in predicting glom erular filtration rate . Estimated GFR is not appl icable for dialysis patien ts Luggage Attendant ID - ADMINPOCT-GLUCOSE [id number] 07:08:26 Test Item Value Reference Range Interpretation Comments POC-GLUCOSE METER 119 mg/dL 70-110 H : TESTED A T [facility] 6720 (BEAKER) (test code = AVINASH Dunn [facility], 1538) [address]: Luggage Attendant/Techni smiley ID = [id number] for Saul addis Teresa CBC W/PLT COUNT & AUTO [id number] 06:25:01 Test Item Value Reference Range Interpretation [...] PERCENT (BEAKER) (test code = 2801) POCT-GLUCOSE [id number] 23:32:08 Test Item Value Reference Range Interpretation Comments POC-GLUCOSE METER 97 mg/dL 70-110 : TESTED A T [facility] 6720 (BEAKER) (test code = [facility], 1538) 15253: Luggage Attendant/Techni smiley ID = [id number] for Teresa Camejo POCT-GLUCOSE [id number] 17:52:25 Test Item Value Reference Range Interpretation Comments POC-GLUCOSE METER 121 mg/dL 70-110 H : TESTED A T [facility] 6720 ([facility]) (test code = [facility], 1538) 69906: Luggage Attendant/Techni smiley ID = [id number] for An Donna lucas POCT-GLUCOSE [id number] 12:24:17 Test Item Value Reference Range Interpretation Comments POC-GLUCOSE METER 106 mg/dL 70-110 : TESTED A T [facility] 6720 ([facility]) (test code = [facility], [facility]8) 65990: Luggage Attendant/Techni smiley ID = [id number] for An Donna lucas VANCOMYCIN LEVEL, [id number] 10:00:44 Test Item Value Reference Range Interpretation Comments VANCOMYCIN TROUGH (AKER) (test 35.0 ug/mL 10.0-20.0 HH code = 522) Luggage Attendant ID - ADMINPOCT-GLUCOSE [id number] 06:04:34 Test Item Value Reference Range Interpretation Comments POC-GLUCOSE METER 98 mg/dL 70-110 : TESTED A T [facility] 6720 ([facility]) (test code = [facility], [facility]) 62125: Luggage Attendant/Techni smiley ID = [id number] for Andi Warren [id number] 04:34:22 Test Item Value Reference Range Interpretation Comments PHOSPHORUS (BEAKER) (test code = 4.3 mg/dL 2.3-4.7 604) Luggage Attendant ID - mmBASIC METABOLIC [id number] 04:34:21 Test Item Value Reference Range Interpretation [...] not appl icable for dialysis patien ts Luggage Attendant ID - [id number] 04:34:21 Test Item Value Reference Range Interpretation Comments MAGNESIUM (BEAKER) (test code = 2.0 mg/dL 1.6-2.6 627) Luggage Attendant ID - mmCBC W/PLT COUNT & AUTO [id number] 04:15:17 Test Item Value Reference Range Interpretation [...] PERCENT (BEAKER) (test code = 2801) POCT-GLUCOSE [id number] 00:10:22 Test Item Value Reference Range Interpretation Comments POC-GLUCOSE METER 102 mg/dL 70-110 : TESTED A T [facility] 6720 (BEAKER) (test code [facility], = 1538) 67132: Luggage Attendant/Techni smiley ID = [id number] for Andi Warren BASIC METABOLIC [id number] 19:00:42 Test Item Value Reference Range Interpretation [...] not appl icable for dialysis patien ts Luggage Attendant ID - JSPOCT-GLUCOSE [id number] 17:28:38 Test Item Value Reference Range Interpretation Comments POC-GLUCOSE METER 122 mg/dL 70-110 H : TESTED A T [facility] 6720 (BEAKER) (test code = [facility], 1538) 53679: Luggage Attendant/Techni smiley ID = [id number] for An Donna lucas POCT-GLUCOSE [id number] 12:36:44 Test Item Value Reference Range Interpretation Comments POC-GLUCOSE METER 110 mg/dL 70-110 : TESTED A T [facility] 6720 (BEAKER) (test code = [facility], 1538) 85191: Luggage Attendant/Techni smiley ID = [id number] for An Donna lucas [id number] 06:20:37 Test Item Value Reference Range Interpretation Comments MAGNESIUM (BEAKER) (test code = 2.2 mg/dL 1.6-2.6 627) Luggage Attendant ID - [id number] 06:20:37 Test Item Value Reference Range Interpretation Comments PHOSPHORUS (BEAKER) (test code = 3.9 mg/dL 2.3-4.7 604) Luggage Attendant ID - ADMINBASIC METABOLIC [id number] 06:20:36 Test Item Value Reference Range Interpretation [...] not appl icable for dialysis patien ts Luggage Attendant ID - ADMINPOCT-GLUCOSE [id number] 06:09:53 Test Item Value Reference Range Interpretation Comments POC-GLUCOSE METER 69 mg/dL 70-110 L : TESTED A T [facility] 6720 (BEAKER) (test code = AVINASH Dunn [facility], 1538) 75747: Luggage Attendant/Techni smiley ID = [id number] for Andi Warren CBC W/PLT COUNT & AUTO [id number] 05:15:05 Test Item Value Reference Range Interpretation [...] code = 2801) XR ABDOMEN/KUB 1 VIEW [id number] 21:59:17 [facility] 1975 Sex: FEXAM/TECHNIQUE: XR ABDOMEN/KUB 1 VIEW PORTABLEINDICATION: Confirm corpak placementCOMPARISON: 11/05/2022.FINDINGS: Feeding tube terminates in the distal stomach. No dilated loops of largesmall bowel. No acute osseous process. Lung bases are clear.IMPRESSION:Feeding tube terminates in the distal stomach.Electronically Signed By: Carlos Preciado11/07/2022 22:01 CDTWorkstation Name: [id number] METABOLIC [id number] 18:29:04 Test Item Value Reference Range Interpretation [...] not appl icable for dialysis patien ts Luggage Attendant ID - BSDRUG SCREEN, URINE, [id number] 08:47:31 Test Item Value Reference Range Interpretation Comments SCAN RESULT (test see scanned report See scanned report. code = 8570543) see scanned reportPOCT-GLUCOSE [id number] 06:13:13 Test Item Value Reference Range Interpretation Comments POC-GLUCOSE METER 81 mg/dL 70-110 : TESTED A T [facility] 6720 (BEAKER) (test code = [facility] [place], 1538) 722[address]: Luggage Attendant/Techni smiley ID = [id number] for Jessica Rodrigues [id number] 04:03:55 Test Item Value Reference Range Interpretation Comments PHOSPHORUS (BEAKER) (test code = 4.8 mg/dL 2.3-4.7 H 604) Luggage Attendant ID - EMBASIC METABOLIC [id number] 04:03:54 Test Item Value Reference Range Interpretation [...] not appl icable for dialysis patien ts Luggage Attendant ID - [id number] 04:03:54 Test Item Value Reference Range Interpretation Comments MAGNESIUM (BEAKER) (test code = 2.4 mg/dL 1.6-2.6 627) Luggage Attendant ID - EMHIGH SENSITIVITY TROPONIN [id number] 03:58:57 Test Item Value Reference Range Interpretation Comments HIGH SENSITIVITY 165 pg/ml See_Comment H [Automated message] TROPONIN I (test code The sy stem which = [id number]) generated this result transmitted ref erence range: <=17. Th e reference range was not used to int erpret this result as normal/abnormal . Luggage Attendant ID - EMThe DISPATCHER STREET DEPARTMENT STAT High Sensitivity Troponin-I results should be used in conjunctionwith other diagnostic information such as ECG, clinical observations and information, and patient symptoms to aid in the diagnosis of IA.CBC W/PLT COUNT & AUTO [id number] 03:38:52 Test Item Value Reference Range Interpretation [...] PERCENT (BEAKER) (test code = 2801) POCT-GLUCOSE [id number] 00:25:14 Test Item Value Reference Range Interpretation Comments POC-GLUCOSE METER 88 mg/dL 70-110 : [facility] (test code = AVINASH Dunn [facility], 1538) 39005: Luggage Attendant/Techni smiley ID = [id number] for Elia Rodriguesy HIGH SENSITIVITY TROPONIN [id number] 22:04:24 Test Item Value Reference Range Interpretation Comments HIGH SENSITIVITY 193 pg/ml See_Comment H [Automated message] TROPONIN I (test code The sy stem which = [id number]) generated this result transmitted ref erence range: <=17. Th e reference range was not used to int erpret this result as normal/abnormal . Luggage Attendant ID - DBThe DISPATCHER STREET DEPARTMENT STAT High Sensitivity Troponin-I results should be used in conjunctionwith other diagnostic information such as ECG, clinical observations and information, and patient symptoms to aid in the diagnosis of IA.URINALYSIS W/ REFLEX URINE [id number] 15:49:18 Test Item Value Reference Range Interpretation [...] /LPF 514) SOURCE(BEAKER) (test code = 2795) Luggage Attendant ID - [auto]Luggage Attendant ID - [id number]/[id number] 15:35:00 Test Item Value Reference Range Interpretation [...] patients with mechanical heart valves.HIGH SENSITIVITY TROPONIN [id number] 15:30:15 Test Item Value Reference Range Interpretation Comments HIGH SENSITIVITY 264 pg/ml See_Comment H [Automated message] TROPONIN I (test code The sy stem which = [id number]) generated this result transmitted ref erence range: <=17. Th e reference range was not used to int erpret this result as normal/abnormal . Luggage Attendant ID - ADMINThe DISPATCHER STREET DEPARTMENT STAT High Sensitivity Troponin-I results should be used in conjunction with other diagnostic information such as ECG, clinical observations and information, and patientsymptoms to aid in the diagnosis of IA. BLOOD GAS, [id number] 15:09:57 Test Item Value Reference Range Interpretation [...] 36.0 XR CHEST 1 VIEW PORTABLE / [id number] 13:38:36 [facility] 1975 Sex: FChest, 1 view, 11/06/2022 11:58 AM.History: r/o aspiration pneumonia.Comparison: 10/30/2022.Discussion: Thecardiac silhouette is prominent but stable. Lungs areclear. There is no pneumothorax. Feeding tube terminates below thehemidiaphragm. Right IJ central line is no longer present. There are noacute osseous findings.IMPRESSION:No acute pulmonary findings.Electronically Signed By: Sage Zuly11/06/2022 13:40 CDTWorkstation Name: [id number] 2022-11-06 11:32:33 Test Item Value Reference Range Interpretation Comments PROCALCITONIN (BEAKER) (test code 0.31 ng/mL <0.05 H = 3036) SEPSIS RISK (ng/mL)Low: 0.05-0.50Intermediate: 0.51-2.00High: >=2.01HIGH SENSITIVITY TROPONIN [id number] 11:27:53 Test Item Value Reference Range Interpretation Comments HIGH SENSITIVITY 344 pg/ml See_Comment H [Automated message] TROPONIN I (test code The sy stem which = [id number]) generated this result transmitted ref erence range: <=17. Th e reference range was not used to int erpret this result as normal/abnormal . Luggage Attendant ID Gisele STEEL WThe DISPATCHER STRE[address] DEPARTMENT STAT High Sensitivity Troponin-I results should be used in conjunction with other diagnostic information such as ECG, clinical observations and information, and patient symptoms to aid in the diagnosis of IA.LACTIC ACID, [id number] 11:07:17 Test Item Value Reference Range Interpretation Comments LACTATE BLOOD VENOUS (2) (BEAKER) 0.80 mmol/L 0.50-2.00 (test code = 2872) Luggage Attendant ID - DAMIÁN WCT BRAIN WITHOUT IV [id number] 10:59:53 [facility]ENTER[facility] GE[facility]HA MINOR Irineo : [...] Signed By: Alexandra Liang11/06/2022 11:01 CDTWorkstation Name: [id number] 10:57:58 Test Item Value Reference Range Interpretation Comments POC-HEMATOCRIT 34 % 36-45 L : Luggage Attendant/Te chnician ID = (WESLEY) (test code = 695938 for CARLOS, 1856) SAMY [id number]-[id number] 10:57:58 Test Item Value Reference Range Interpretation Comments POC-GLUCOSE (NERISBITA) 117 mg/dL 70-110 H : TESTE D AT [facility] 6720 (test code = 1855) [facility], [address]: Luggage Attendant/Techni smiley ID = [id number] for SAMY DAVIS [id number]-[id number] 10:57:57 Test Item Value Reference Range Interpretation Comments POC-POTASSIUM 5.5 meq/L 3.6-5.5 : TESTED AT [facility] 67 (BEAKER) (test code [facility], = 1540) 29023: Luggage Attendant/Techni smiley ID = [id number] for SAMY DAVIS [id number]-[id number] 10:57:57 Test Item Value Reference Range Interpretation Comments POC-HEMOGLOBIN 11.6 g/dL 12.0-15.0 L : TESTED AT [facility] 6720 (BEAKER) (test code [facility], = 1856) 79482: Luggage Attendant/Techni smiley ID = [id number] for SAMY DAVIS COOX-[id number] 10:57:52 Test Item Value Reference Range Interpretation Comments POC-SODIUM (BEAKER) 142 meq/L 135-148 : TESTED AT [facility] 6720 (test code = 1542) [facility], [address]: Luggage Attendant/Techni smiley ID = [id number] for SAMY DAVIS POCT-BLOOD GASES, [id number] 10:57:51 Test Item Value Reference Range Interpretation [...] 7.0 meq/L -2.0-3.0 H : TESTED AT [facility] 6720 ARTERIAL-POC [facility], (BEAKER) (test code 28478: = 1841) Luggage Attendant/Techni smiley ID = [id number] for SAMY DAVIS POCT-GLUCOSE [id number] 10:21:20 Test Item Value Reference Range Interpretation Comments POC-GLUCOSE METER 117 mg/dL 70-110 H : TESTED A T [facility] 6720 (BEAKER) (test code = [facility], 1538) 16522: Luggage Attendant/Techni smiley ID = [id number] for MANDA ESPARZA POCT-GLUCOSE [id number] 05:45:28 Test Item Value Reference Range Interpretation Comments POC-GLUCOSE METER 116 mg/dL 70-110 H : TESTED A T [facility] 6720 (BEAKER) (test code = [facility], 1538) 30276: Luggage Attendant/Techni smiley ID = [id number] for Teresa Rose BASIC METABOLIC [id number] 05:42:31 Test Item Value Reference Range Interpretation [...] not appl icable for dialysis patien ts Luggage Attendant ID - [id number] 05:40:46 Test Item Value Reference Range Interpretation Comments MAGNESIUM (BEAKER) (test code = 2.9 mg/dL 1.6-2.6 H 627) Luggage Attendant ID - [id number] 05:40:46 Test Item Value Reference Range Interpretation Comments PHOSPHORUS (BEAKER) (test code = 6.5 mg/dL 2.3-4.7 H 604) Luggage Attendant ID - ADMINCBC W/PLT COUNT & AUTO [id number] 05:38:35 Test Item Value Reference Range Interpretation [...] PERCENT (BEAKER) (test code = 2801) POCT-GLUCOSE [id number] 23:35:25 Test Item Value Reference Range Interpretation Comments POC-GLUCOSE METER 135 mg/dL 70-110 H : TESTED A T [facility] 6720 (BEAKER) (test code = [facility], 1538) 798[address]: Luggage Attendant/Techni smiley ID = [id number] for Teresa Rose POCT-GLUCOSE [id number] 17:28:48 Test Item Value Reference Range Interpretation Comments POC-GLUCOSE METER 101 mg/dL 70-110 : TESTED A T [facility] 6720 (BEAKER) (test code = [facility], 1538) 16530: Luggage Attendant/Techni smiley ID = [id number] for CIRA HUMPHREY BLOOD [id number] 17:00:30 Test Item Value Reference Range Interpretation Comments CULTURE (BEAKER) (test No growth in 5 days code = 1095) BLOOD [id number] 17:00:30 Test Item Value Reference Range Interpretation Comments CULTURE (BEAKER) (test No growth in 5 days code = 1095) XR ABDOMEN/KUB 1 VIEW [id number] 14:17:07 [facility] 1975 Sex: FXR ABDOMEN/KUB 1 VIEW PORTABLETECHNIQUE: Supine radiograph(s) of the abdomen and pelvis.HISTORY: corpak placementCOMPARISON: 12/04/2022IMPRESSION:Lines and tubes: Enteric tube is seen with tip in the stomachElectronically Signed By: Sarah Carrera11/05/2022 14:19 CDTWorkstation Name: [id number] 12:53:33 Test Item Value Reference Range Interpretation Comments POC-GLUCOSE METER 88 mg/dL 70-110 : TESTED A T [facility] 6720 (BEAKER) (test code = [facility], 1538) [address]26: Luggage Attendant/Techni smiley ID = [id number] for CIRA ROLAND POCT-GLUCOSE [id number] 06:25:50 Test Item Value Reference Range Interpretation Comments POC-GLUCOSE METER 110 mg/dL 70-110 : TESTED A T [facility] 6720 (BEAKER) (test code = [facility], 1538) 9[address]12: Luggage Attendant/Techni smiley ID = [id number] for NADEGE IVEY BASIC METABOLIC [id number] 04:16:53 Test Item Value Reference Range Interpretation [...] not appl icable for dialysis patien ts Luggage Attendant KURT STEEL [id number] 04:16:53 Test Item Value Reference Range Interpretation Comments MAGNESIUM (BEAKER) (test code = 2.8 mg/dL 1.6-2.6 H 627) Luggage Attendant ID Gisele STEEL [id number] 04:16:53 Test Item Value Reference Range Interpretation Comments PHOSPHORUS (BEAKER) (test code = 5.7 mg/dL 2.3-4.7 H 604) Luggage Attendant ID Gisele STEEL WCBC W/PLT COUNT & AUTO [id number] 03:44:05 Test Item Value Reference Range Interpretation [...] PERCENT (BEAKER) (test code = 2801) POCT-GLUCOSE [id number] 23:25:33 Test Item Value Reference Range Interpretation Comments POC-GLUCOSE METER 114 mg/dL 70-110 H : TESTED A T [facility] 6720 (BEAKER) (test code = [facility] [place], 1538) [address]: Luggage Attendant/Techni smiley ID = [id number] for NADEGE IVEY [id number] 18:58:11 Test Item Value Reference Range Interpretation Comments SODIUM (BEAKER) (test code = 381) 142 meq/L 136-145 Luggage Attendant ID - JSPOCT-GLUCOSE [id number] 17:04:52 Test Item Value Reference Range Interpretation Comments POC-GLUCOSE METER 142 mg/dL 70-110 H : TESTED A T [facility] 6720 (BEAKER) (test code = SRIRAMMO Mon[facility], 1538) [address]: Luggage Attendant/Techni smiley ID = [id number] for MANDA ESPARZA POCT-GLUCOSE [id number] 12:43:34 Test Item Value Reference Range Interpretation Comments POC-GLUCOSE METER 127 mg/dL 70-110 H : TESTED A T [facility] 6720 (BEAKER) (test code = [facility] Mona [facility], 1538) 81000: Luggage Attendant/Techni smiley ID = [id number] for MANDA ESPARZA [id number] 12:42:31 Test Item Value Reference Range Interpretation Comments SODIUM (BEAKER) (test code = 381) 141 meq/L 136-145 Luggage Attendant ID - JSPOCT-GLUCOSE [id number] 05:53:11 Test Item Value Reference Range Interpretation Comments POC-GLUCOSE METER 122 mg/dL 70-110 H : TESTED A T [facility] 6720 (BEAKER) (test code = [facility], 1538) 927[address]: Luggage Attendant/Techni smiley ID = [id number] for NADEGE IVEY [id number] 04:57:58 Test Item Value Reference Range Interpretation Comments PHOSPHORUS (BEAKER) 6.1 mg/dL 2.3-4.7 H Specimen slightly (test code = 604) hemolyzed Luggage Attendant ID - DAMIÁN WBASIC METABOLIC [id number] 04:57:58 Test Item Value Reference Range Interpretation [...] not appl icable for dialysis patien ts Luggage Attendant ID - DAMIÁN [id number] 04:57:57 Test Item Value Reference Range Interpretation Comments MAGNESIUM (BEAKER) 2.7 mg/dL 1.6-2.6 H Specimen slightly (test code = 627) hemolyzed Luggage Attendant ID - DAMIÁN WCBC W/PLT COUNT & AUTO [id number] 04:36:11 Test Item Value Reference Range Interpretation [...] PERCENT (BEAKER) (test code = 2801) POCT-GLUCOSE [id number] 00:26:17 Test Item Value Reference Range Interpretation Comments POC-GLUCOSE METER 117 mg/dL 70-110 H : TESTED A T [facility] 6720 (BEAKER) (test code = [facility], 153) 85896: Luggage Attendant/Techni smiley ID = [id number] for NADEGE IVEY [id number] 19:29:04 Test Item Value Reference Range Interpretation Comments SODIUM (BEAKER) (test code = 381) 141 meq/L 136-145 Luggage Attendant ID - ADMINPOCT-GLUCOSE [id number] 16:58:24 Test Item Value Reference Range Interpretation Comments POC-GLUCOSE METER 142 mg/dL 70-110 H : TESTED A T [facility] 6720 (BEAKER) (test code = [facility], 153) 38480: Luggage Attendant/Techni smiley ID = [id number] for MANDA ESPARZA XR ABDOMEN/KUB 1 VIEW [id number] 13:01:43 [facility] 1975 Sex: FAbdomen , one viewHistory:Feeding tube placementComparison:10/30/2022Findings:Tip of the feeding tube is near the pylorus. Nonobstructive bowel gaspattern. Cholecystectomy clips within the right upper quadrant.Electronically Signed By: Kam Vigil MD11/03/2022 13:03 CDTWorkstation Name: [id number] 12:39:24 Test Item Value Reference Range Interpretation Comments SODIUM (BEAKER) (test code = 381) 142 meq/L 136-145 POCT-GLUCOSE [id number] 12:05:03 Test Item Value Reference Range Interpretation Comments POC-GLUCOSE METER 118 mg/dL 70-110 H : TESTED A T [facility] 6720 (BEAKER) (test code = AVINASH [facility], 1538) [address]: Luggage Attendant/Techni smiley ID = [id number] for MANDA ESPARZA [id number] 06:17:11 Test Item Value Reference Range Interpretation Comments PHOSPHORUS (BEAKER) (test code = 4.1 mg/dL 2.3-4.7 604) Luggage Attendant ID - DAMIÁN WBASIC METABOLIC [id number] 06:17:10 Test Item Value Reference Range Interpretation [...] not appl icable for dialysis patien ts Luggage Attendant ID - DAMIÁN [id number] 06:17:10 Test Item Value Reference Range Interpretation Comments MAGNESIUM (BEAKER) (test code = 2.4 mg/dL 1.6-2.6 627) Luggage Attendant ID - DAMIÁN WPOCT-GLUCOSE [id number] 05:50:21 Test Item Value Reference Range Interpretation Comments POC-GLUCOSE METER 121 mg/dL 70-110 H : [facility] (BEAKER[facility] (test code = SRIRAMTOPHER Dunn [facility], 1538) [address]: Luggage Attendant/Techni smiley ID = [id number] for NADEGE IVEY CBC W/PLT COUNT & AUTO [id number] 05:25:22 Test Item Value Reference Range Interpretation [...] PERCENT (BEAKER) (test code = 2801) POCT-GLUCOSE [id number] 23:36:51 Test Item Value Reference Range Interpretation Comments POC-GLUCOSE METER 116 mg/dL 70-110 H : TESTED Oscar T [facility] 6720 (BEAKER) (test code = [facility] [place], 1538) [address]: Luggage Attendant/Techni smiley ID = [id number] for NADEGE IVEY [id number] 18:30:49 Test Item Value Reference Range Interpretation Comments SODIUM (BEAKER) (test code = 381) 141 meq/L 136-145 Luggage Attendant ID - ADMINPOCT-GLUCOSE [id number] 17:57:14 Test Item Value Reference Range Interpretation Comments POC-GLUCOSE METER 118 mg/dL 70-110 H : TESTED A T [facility] 6720 (BEAKER) (test code = [facility], 1538) [address]: Luggage Attendant/Techni smiley ID = [id number] for An Donna lucas MRSA [id number] 14:39:15 Test Item Value Reference Range Interpretation Comments CULTURE (BEAKER) (test code No MRSA isolated = 1095) [id number] 13:35:39 Test Item Value Reference Range Interpretation Comments SODIUM (BEAKER) (test code = 381) 139 meq/L 136-145 Luggage Attendant ID - BVPOCT-GLUCOSE [id number] 13:06:41 Test Item Value Reference Range Interpretation Comments POC-GLUCOSE METER 134 mg/dL 70-110 H : TESTED A T [facility] 6720 (NERISAKER) (test code = [facility], 1538) [address]25: Luggage Attendant/Techni smiley ID = [id number] for An Donna lucas CT BRAIN WITHOUT IV [id number] 13:00:59 [facility] 1975 Sex: FCT [...] Signed By: Alexandra Liang11/02/2022 13:03 CDTWorkstation Name: [id number] 06:29:29 Test Item Value Reference Range Interpretation Comments SODIUM (BEAKER) (test code = 381) 139 meq/L 136-145 BASIC METABOLIC [id number] 06:29:28 Test Item Value Reference Range Interpretation [...] not appl icable for dialysis patien ts Luggage Attendant ID - [id number] 06:29:28 Test Item Value Reference Range Interpretation Comments MAGNESIUM (BEAKER) (test code = 2.2 mg/dL 1.6-2.6 627) Luggage Attendant ID - [id number] 06:29:28 Test Item Value Reference Range Interpretation Comments PHOSPHORUS (BEAKER) (test code = 3.8 mg/dL 2.3-4.7 604) Luggage Attendant ID - MARCOPOCT-GLUCOSE [id number] 06:21:55 Test Item Value Reference Range Interpretation Comments POC-GLUCOSE METER 125 mg/dL 70-110 H : TESTED A T [facility] 6720 (BEAKER) (test code = AVINASH Dunn [facility], 1538) [address]: Luggage Attendant/Techni smiley ID = [id number] for NADEGE IVEY CBC W/PLT COUNT & AUTO [id number] 06:08:00 Test Item Value Reference Range Interpretation [...] PERCENT (BEAKER) (test code = 2801) POCT-GLUCOSE [id number] 00:19:06 Test Item Value Reference Range Interpretation Comments POC-GLUCOSE METER 99 mg/dL 70-110 : TESTED A T [facility] 6720 (BEAKER) (test code = AVINASH Dunn [facility], 1538) [address]: Luggage Attendant/Techni smiley ID = [id number] for NADEGE MORALES [id number] 18:45:56 Test Item Value Reference Range Interpretation Comments SODIUM (BEAKER) (test code = 381) 140 meq/L 136-145 Luggage Attendant ID - ADMPOCT-GLUCOSE [id number] 18:39:21 Test Item Value Reference Range Interpretation Comments POC-GLUCOSE METER 121 mg/dL 70-110 H : TESTED A T [facility] 6720 (BEAKER) (test code [facility], = 1538) [address]: Luggage Attendant/Techni smiley ID = [id number] for Latonia Connolly [id number] 14:24:36 Test Item Value Reference Range Interpretation Comments SODIUM (BEAKER) (test code = 381) 140 meq/L 136-145 Luggage Attendant ID - [id number] 10:06:02 Test Item Value Reference Range Interpretation Comments POTASSIUM (BEAKER) (test code = 3.8 meq/L 3.5-5.1 379) Luggage Attendant ID - [id number] 10:06:01 Test Item Value Reference Range Interpretation Comments MAGNESIUM (BEAKER) (test code = 2.3 mg/dL 1.6-2.6 627) Luggage Attendant ID - ADMVANCOMYCIN LEVEL, [id number] 09:59:39 Test Item Value Reference Range Interpretation Comments VANCOMYCIN TROUGH (BEAKER) (test 8.4 ug/mL 10.0-20.0 L code = 522) Luggage Attendant ID - [id number] 04:21:26 Test Item Value Reference Range Interpretation Comments MAGNESIUM (BEAKER) (test code = 2.0 mg/dL 1.6-2.6 627) Luggage Attendant ID - [id number] 04:21:26 Test Item Value Reference Range Interpretation Comments PHOSPHORUS (BEAKER) (test code = 3.2 mg/dL 2.3-4.7 604) Luggage Attendant ID - ADMINBASIC METABOLIC [id number] 04:21:25 Test Item Value Reference Range Interpretation [...] not appl icable for dialysis patien ts Luggage Attendant ID - ADMINCBC W/PLT COUNT & AUTO [id number] 03:36:42 Test Item Value Reference Range Interpretation [...] 0.00-1.00 PERCENT (BEAKER) (test code = 2801) [id number] 00:11:29 Test Item Value Reference Range Interpretation Comments SODIUM (BEAKER) (test code = 381) 139 meq/L 136-145 Luggage Attendant ID - [id number] 18:25:44 Test Item Value Reference Range Interpretation Comments SODIUM (BEAKER) (test code = 381) 139 meq/L 136-145 Luggage Attendant ID - esauSARS-COV2/INFLUENZA/RSV [id number] 14:03:24 Test Item Value Reference Range Interpretation Comments SARS-COV2/RT-PCR Negative Negative The SARS-Co V-2 target (test code = nucleic acids a re not 7235037) detected in thi s specimen. Negat yesika [...] individuals amanda pected of COVID-19 by [facility] ider. INFLUENZA A RT-PCR Negative Negative The Flu A target nucleic (test code = acids are not d etected in 19100421) this specimen. INFLUENZA B RT-PCR Negative Negative The Flu B target nucleic (test code = acids are not d etected in 19100422) this specimen. RSV RT-PCR (test Negative Negative The RSV tar get nucleic code = 1221168) acids are no t detected in this [...] Xpress SARS-CoV-2/Flu/RSV by their healthcareprovider. Results from [facility] Xpert Xpress SARS-CoV-2/Flu/RSV test should be [...] of the Act.Fact Sheet for Healthcare Providers:https ://www.Touristlink.DutyCalculator/Documents/Xpert%20Xpress%20SARS%20CoV-2/Fact%20Sheets/302-390 2%96YELP-GIC-5%20HEALTHCARE%20PROVIDERS%20FACT%20SHEET.pdfFact Sheet for Healthcare Patients:https://www.Sepaton/Docum ents/Xpert%20Xpress%20SARS%20Cov-2/Fact%20Sheets/302-3801%36KUMK-WCS-7%20PATIENT %20FACT%20SHEET.zjuBXRGEO3611-93-93 12:52:25 Test Item Value Reference Range Interpretation Comments SODIUM (BEAKER) (test code = 381) 135 meq/L 136-145 L Luggage Attendant ID - yrkfKFSQAGOKM8852-89-08 12:52:24 Test Item Value Reference Range Interpretation Comments MAGNESIUM (BEAKER) (test code = 2.4 mg/dL 1.6-2.6 627) Luggage Attendant ID - esauPOCT-GLUCOSE [id number] 12:00:51 Test Item Value Reference Range Interpretation Comments POC-GLUCOSE METER 130 mg/dL 70-110 H : [facility] (test code [facility], = 1538) [address]: Luggage Attendant/Techni smiley ID = [id number] for Latonia Connolly B-TYPE NATRIURETIC FACTOR (BNP)2022-10-31 10:43:21 Test Item Value Reference Range Interpretation Comments B-TYPE NATRIURETIC PEPTIDE (BEAKER) 568 pg/mL 0-100 H (test code = 700) Luggage Attendant ID - [id number] 05:07:29 Test Item Value Reference Range Interpretation Comments MAGNESIUM (BEAKER) (test code = 1.9 mg/dL 1.6-2.6 627) Luggage Attendant ID - MXCPHYLLYZKHUXQ5785-03-06 05:07:29 Test Item Value Reference Range Interpretation Comments PHOSPHORUS (BEAKER) (test code = 3.7 mg/dL 2.3-4.7 604) Luggage Attendant ID - ADMINBASIC METABOLIC [id number] 05:07:28 Test Item Value Reference Range Interpretation [...] not appl icable for dialysis patien ts Luggage Attendant ID - ADMINCBC W/PLT COUNT & AUTO [id number] 04:47:13 Test Item Value Reference Range Interpretation [...] 0.00-1.00 PERCENT (BEAKER) (test code = 2801) [id number] 23:06:40 Test Item Value Reference Range Interpretation Comments SODIUM (BEAKER) (test code = 381) 133 meq/L 136-145 L Luggage Attendant ID - ADMINHIGH SENSITIVITY TROPONIN [id number] 22:59:43 Test Item Value Reference Range Interpretation Comments HIGH SENSITIVITY 92 pg/ml See_Comment H [Automated message] TROPONIN I (test code = The system which [id number]) generated this result transmitted ref erence range: <=17. Th e reference range was not used to int erpret this result as normal/abnormal . Luggage Attendant ID - ADMINThe [facility]RE[address] DEPARTMENT STAT High Sensitivity Troponin-I results should be used in conjunction with other diagnostic information such as ECG, clinical observations and information, and patientsymptoms to aid in the diagnosis of IA. XR ABDOMEN/KUB 1 VIEW [id number] 18:54:45 [facility] 1975 Sex: FTECHNIQUE: XR ABDOMEN/KUB 1 VIEW PORTABLEINDICATION: corpak placement.COMPARISON: 10/29/2022FINDINGS:Feeding tube tip projecting over the body of the stomach. No specificevidence for bowel obstruction. Cholecystectomy clips are noted. Supineradiographs are insensitive for detection of free intraperitoneal a ir.IMPRESSION:Feeding tube tip projects over the body of the stomach.Electronically Signed By: Mo Soares10/30/2022 18:56 CDTWorkstation Name: [id number] SENSITIVITY TROPONIN [id number] 17:30:01 Test Item Value Reference Range Interpretation Comments HIGH SENSITIVITY 123 pg/ml See_Comment H [Automated message] TROPONIN I (test code The sy stem which = [id number]) generated this result transmitted ref erence range: <=17. Th e reference range was not used to int erpret this result as normal/abnormal . Luggage Attendant ID - BSThe DISP[facility] STRE[facility] DEPARTMENT STAT High Sensitivity Troponin-I results should be used in conjunctionwith other diagnostic information such as ECG, clinical observations and information, and patient symptoms to aid in the diagnosis of IA.LACTIC ACID, [id number] 17:25:59 Test Item Value Reference Range Interpretation Comments LACTATE BLOOD ARTERIAL (2) 1.0 mmol/L 0.5-2.0 (BEAKER) (test code = 2874) Luggage Attendant ID - [id number] 17:21:36 Test Item Value Reference Range Interpretation Comments SODIUM (BEAKER) (test code = 381) 136 meq/L 136-145 Luggage Attendant ID - ADMINBLOOD GAS, [id number] 14:46:08 Test Item Value Reference Range Interpretation [...] FIO2 (BEAKER) (test code = 1819) 100.0 [id number] 12:47:53 Test Item Value Reference Range Interpretation Comments SODIUM (BEAKER) (test code = 381) 137 meq/L 136-145 Luggage Attendant ID - JSLACTIC ACID, [id number] 12:47:37 Test Item Value Reference Range Interpretation Comments LACTATE BLOOD 2.3 mmol/L 0.5-2.0 H Specimen sligh tly ARTERIAL (2) (BEAKER) hemoly zed (test code = 2874) Luggage Attendant ID - JSBLOOD GAS, [id number] 12:23:19 Test Item Value Reference Range Interpretation [...] FIO2 (BEAKER) (test code = 1819) 100.0 [id number] 11:15:25 Test Item Value Reference Range Interpretation Comments PROCALCITONIN (BEAKER) (test code 0.05 ng/mL <0.05 H = 3036) SEPSIS RISK (ng/mL)Low: 0.05-0.50Intermediate: 0.51-2.00High: >=2.01HIGH SENSITIVITY TROPONIN [id number] 11:10:59 Test Item Value Reference Range Interpretation Comments HIGH SENSITIVITY 139 pg/ml See_Comment H [Automated message] TROPONIN I (test code The arvind dsouza which = 0003957) generated this result transmitted ref erence range: <=17. Th e reference range was not used to int erpret this result as normal/abnormal . Luggage Attendant ID - JSThe DISP[facility] STREET DEPARTMENT STAT High Sensitivity Troponin-I results should be used in conjunctionwith other diagnostic information such as ECG, clinical observations and information, and patient symptoms to aid in the diagnosis of IA.XR CHEST 1 VIEW PORTABLE / [id number] 10:47:01 [facility] 1975 Sex: FCLINICAL HISTORY: desaturationTECHNIQUE: 1 view of the chest.COMPARISON: 10/29/2022IMPRESSION:ETT no longer seen. New feeding tube below the diaphragm. Right centralline remains in the right atrium. There are mildly increased bilaterallower lung airspace opacities with blunting of both costophrenic angles.The cardiomediastinal silhouette is magnified by technique.Electronically Signed By: Yeyo Mills10/30/2022 10:49 CDTWorkstation Name: [id number] BRAIN WITHOUT IV [id number] 09:21:03 [facility] : 1975 Sex: FCT [...] Signed By: Luís Mclain10/30/2022 09:23 CDTWorkstation Name: [id number] 04:21:01 Test Item Value Reference Range Interpretation Comments PHOSPHORUS (BEAKER) (test code = 3.2 mg/dL 2.3-4.7 604) Luggage Attendant ID - EMBASIC METABOLIC [id number] 04:21:00 Test Item Value Reference Range Interpretation [...] not appl icable for dialysis patien ts Luggage Attendant ID - [id number] 04:21:00 Test Item Value Reference Range Interpretation Comments MAGNESIUM (BEAKER) (test code = 1.7 mg/dL 1.6-2.6 627) Luggage Attendant ID - EMCBC W/PLT COUNT & AUTO [id number] 03:30:03 Test Item Value Reference Range Interpretation [...] 0.00-1.00 PERCENT (BEAKER) (test code = 2801) [id number] 00:34:48 Test Item Value Reference Range Interpretation Comments SODIUM (BEAKER) (test code = 381) 137 meq/L 136-145 Luggage Attendant ID - ADMINXR ABDOMEN/KUB 1 VIEW [id number] 18:55:43 [facility] 1975 Sex: FTECHNIQUE: [...] Signed By: Mo Soares10/29/2022 18:57 CDTWorkstation Name: [id number] 2022-10-29 18:31:20 Test Item Value Reference Range Interpretation Comments SODIUM (BEAKER) (test code = 381) 138 meq/L 136-145 Luggage Attendant ID - ADMINCREATININE, RANDOM [id number] 15:21:04 Test Item Value Reference Range Interpretation Comments CREATININE URINE (BEAKER) (test 24.5 mg/dL code = 375) Reference Range: No NormalsOperator ID - ADMINRAPID DRUG SCREEN, [id number] 14:06:15 Test Item Value Reference Range Interpretation [...] situations. Chain of custody not maintained. Some qzqm-end-dapajpy medications, as well as adulterants, may cause inaccurate results. Clinical correlation should be applied. A more comprehensive drug screen or confirmation of a detected drug may be performed upon request.Luggage Attendant ID - JSOperator ID - [auto] HEMOGLOBIN [id number] 13:23:17 Test Item Value Reference Range Interpretation Comments HEMOGLOBIN A1C 4.5 % See_Comment [Automated m essage] ELECTROPHORESIS ([employer]) The system which (test code = 3811) generated this result transmitted ref erence range: <=5.6%. The reference range was not used to int erpret this result as normal/abnormal . "The A1c is measured using a NGSP-certified method. HbA1c value equal to or greater than 6.5% as thediagnosis cutoff for diabetes. An HbA1c value of 5.7- 6.4% indicates increased risk for diabetes (prediabetes)."Luggage Attendant ID - ADMOperator ID - ADMCTA [id number] 13:16:45 [facility] : 1975 Sex: FCT BRAIN WITHOUT IV CONTRAST, CTA CAROTID, CTA BRAINBRAIN CT WITHOUT CONTRASTINDICATION: Unlisted Reason for Exam, intraparenchymal hematomaCOMPARISON: NoneTECHNIQUE:Rapid acquisition spiral images were obtained between the aortic archand the cranial vertex during intravenous contrast infusion toreconstruct axial images and angiographic 3D maximum intensityprojections (MIP). 3-D volumetric reformatted images were created at [employer] workstation. Precontrast images of the brain were [...] Signed By: Luís Mclain10/29/2022 13:18 CDTWorkstation Name: [id number] BRAIN WITHOUT IV [id number] 13:16:45 [facility] 1975 Sex: FCT BRAIN WITHOUT IV CONTRAST, CTA CAROTID, CTA BRAINBRAIN CT WITHOUT CONTRASTINDICATION: Unlisted Reason for Exam, intraparenchymal hematomaCOMPARISON: NoneTECHNIQUE:Rapid acquisition spiral images were obtained between the aortic archand the cranial vertex during intravenous contrast infusion toreconstruct axial images and angiographic 3D maximum intensityprojections (MIP). 3-D volumetric reformatted images were created at [employer] workstation. Precontrast images of the brain were [...] Signed By: Luís Mclain10/29/2022 13:18 CDTWorkstation Name: [id number] 13:16:45[facility] : 1975 Sex: FCT BRAIN WITHOUT IV CONTRAST, CTA CAROTID, CTA BRAINBRAIN CT WITHOUT CONTRASTINDICATION: Unlisted Reason for Exam, intraparenchymal hematomaCOMPARISON: NoneTECHNIQUE:Rapid acquisition spiral images were obtained between the aortic archand the cranial vertex during intravenous contrast infusion toreconstruct axial images and angiographic 3D maximum intensityprojections (MIP). 3-D volumetric reformatted images were created at [employer] workstation. Precontrast images of the brain were [...] Signed By: Luís Mclain10/29/2022 13:18 CDTWorkstation Name: [id number], QUANTITATIVE, [id number] 13:15:24 Test Item Value Reference Range Interpretation Comments GONADOTROPIN, CHORIONIC (HCG) QUANT < mIU/mL 0-10 ([facility]) (test code = 649) Non- Females: <10 mIU/mL Females: Gestation Age Reference Range(mIU/mL) 0.2-1 Week 5-50 1-2 Weeks 50-500 2-3 Weeks 100-5,000 3-4 Weeks 500-10,000 4-5 Weeks 1,000-50,000 5-6 Weeks 10,000-100,000 6-8 Weeks 15,000- 200,000 2-3 Months 10,000-100,000 Luggage Attendant ID - MARCOOSMOLALITY, [id number] 13:07:55 Test Item Value Reference Range Interpretation Comments OSMOLALITY URINE 529 mOsm/kg See_Comment [Automated message] (WESLEY) (test code = The sy stem which 614) generated this result transmitted ref erence range: 50-1,200 mOsm/kg. The reference range was not used to int erpret this result as normal/abnormal . UREA NITROGEN, RANDOM [id number] 12:57:04 Test Item Value Reference Range Interpretation Comments UREA NITROGEN URINE (BEAKER) (test 186 mg/dL code = 538) Reference Range: No NormalsOperator ID - JSSODIUM, RANDOM [id number] 12:57:03 Test Item Value Reference Range Interpretation Comments SODIUM URINE (BEAKER) (test code = 155 meq/L 243) Reference Range: No NormalsOperator ID - JSOSMOLALITY, [id number] 12:52:21 Test Item Value Reference Range Interpretation Comments OSMOLALITY, SERUM (BEAKER) (test 290 mOsm/kg 275-295 code = 615) [id number] 12:52:14 Test Item Value Reference Range Interpretation Comments SODIUM (BEAKER) (test code = 381) 140 meq/L 136-145 Luggage Attendant ID - MARCOPREGNANCY SCREEN, [id number] 09:52:55 Test Item Value Reference Range Interpretation Comments TEST URINE (BEAKER) (test Negative Negative code = 583) BLOOD GAS, [id number] 08:02:40 Test Item Value Reference Range Interpretation [...] (BEAKER) (test code = 1819) 40.0 T4, [id number] 06:13:37 Test Item Value Reference Range Interpretation Comments FREE T4 (BEAKER) (test code = 655) 0.90 ng/dL 0.70-1.48 Luggage Attendant ID - ADMINTSH/FREE T4 IF [id number] 05:34:42 Test Item Value Reference Range Interpretation Comments THYROID STIMULATING HORMONE 6.331 uIU/mL 0.350-4.940 H (BEAKER) (test code = 772) Luggage Attendant ID - [id number] 05:26:57 Test Item Value Reference Range Interpretation Comments MAGNESIUM (BEAKER) (test code = 1.8 mg/dL 1.6-2.6 627) Luggage Attendant ID - [id number] 05:26:57 Test Item Value Reference Range Interpretation Comments PHOSPHORUS (BEAKER) (test code = 3.0 mg/dL 2.3-4.7 604) Luggage Attendant ID - MARCOCOMPREHENSIVE METABOLIC [id number] 05:26:56 Test Item Value Reference Range Interpretation [...] (test code = 347) EGFR (BEAKER) 44 Interpretati on of eGFR (test code = 1092) mL/min/1.73 [...] not appl icable for dialysis patien ts Luggage Attendant ID - MARCOXR CHEST 1 VIEW PORTABLE / [id number] 05:03:50 [facility] : 1975 [...] with cardiomegaly.Additional findings: None.Electronically Signed By: Jaziel Motne10/29/2022 05:05 CDTWorkstation Name: [id number] 04:56:04 Test Item Value Reference Range Interpretation Comments PARTIAL THROMBOPLASTIN TIME 30.4 seconds 22.5-36.0 (BEAKER) (test code = 760) PROTHROMBIN TIME/[id number] 04:55:22 Test Item Value Reference Range Interpretation Comments PROTIME (BEAKER) 13.6 seconds 11.9-14.2 (test code = 759) INR (BEAKER) (test 1.06 See_Comment [Automat ed message] code = 370) The system [employer] generated this result transmitted ref erence range: <=5.90. The reference range was not used to int erpret this result as normal/abnormal . RECOMMENDED COUMADIN/WARFARIN INR THERAPY RANGESSTANDARD DOSE: 2.0 - 3.0 Includes: PROPHYLAXIS for venous thrombosis, systemic embolization; TREATMENT for venous thrombosis and/or pulmonary embolus.HIGH RISK: Target INR is 2.5-3.5 for patients with mechanical heart valves.CBC W/PLT COUNT & AUTO [id number] 04:50:18 Test Item Value Reference Range Interpretation [...] (BEAKER) (test code = 2801) BLOOD GAS, [id number] 04:03:20 Test Item Value Reference Range Interpretation [...] (BEAKER) (test code = 1819) 60.0 CALCIUM, [id number] 03:59:22 Test Item Value Reference Range Interpretation Comments CALCIUM IONIZED (BEAKER) (test 1.09 mmol/L 1.12-1.27 L code = 698) PH, BLOOD (BEAKER) (test code = 7.33 1810) Fungus culture + [id number] 08:28:10 Test Item Value Reference Range Interpretation Comments Result (test code = No fungus isolated in 6463-4) 28 days Fungus Smear (test No fungal elements seen code = 1406) [facility] [id number] 08:28:10 Test Item Value Reference Range Interpretation Comments CULTURE (BEAKER) (test No fungus isolated in code = 1095) 28 days FUNGUS SMEAR (BEAKER) No fungal elements seen (test code = 1406) [id number] 05:54:28 Test Item Value Reference Range Interpretation Comments MAGNESIUM (BEAKER) (test code = 1.9 mg/dL 1.6-2.6 627) Luggage Attendant ID - [id number] 05:54:28 Test Item Value Reference Range Interpretation Comments PHOSPHORUS (BEAKER) (test code = 5.2 mg/dL 2.3-4.7 H 604) Luggage Attendant ID - MARCOBASIC METABOLIC [id number] 05:54:27 Test Item Value Reference Range Interpretation [...] not appl icable for dialysis patien ts Luggage Attendant ID - MARCOCBC W/PLT COUNT & AUTO [id number] 05:42:51 Test Item Value Reference Range Interpretation [...] PERCENT (BEAKER) (test code = 2801) CALCIUM, [id number] 05:36:04 Test Item Value Reference Range Interpretation Comments CALCIUM IONIZED (BEAKER) (test 1.12 mmol/L 1.12-1.27 code = 698) PH, BLOOD (BEAKER) (test code = 7.42 1810) Anaerobic [id number] 02:03:45 Test Item Value Reference Range Interpretation Comments Result (test code = No anaerobes isolated 6463-4) [facility] [id number] 02:03:45 Test Item Value Reference Range Interpretation Comments CULTURE (BEAKER) (test No anaerobes isolated code = 1095) STD Panel - CT/GC [id number] 17:37:44 Test Item Value Reference Interpretation Comments Range C. trachomatis NOT DETECTED RNA, TMA (test code = 9175597) N. gonorrhoeae NOT DETECTED REFERENCE RA NGE: NOT RNA, TMA (test DETECTED Meth odology: code = 9914211) Transcriptio n Mediated Amplification ( TMA)to detect RNA. The analytical perf ormance characteristics of thisassay, when used to test SurePat h(TM) specimens haveb een determined by [employer]. Th e modificationsha ve not been cleared or approved by the FDA. This assayhas b een validated pursu ant to the CLIA regula tions andis used for clinical purpos es. For additional information, pl ease refer tohttps://educa tion.[employer]. DutyCalculator/faq /DSE709(This li nk is being provided for informational/e ducatio nal purposes on ly.) SUE (test code = Performing Lab SUE) *QDID [facility] [address] [address] Sylvie Gresham MD, PhD [facility] METABOLIC [id number] 16:40:09 Test Item Value Reference Range Interpretation [...] not appl icable for dialysis patien ts Luggage Attendant ID - BSOsmolality, [id number] 12:43:16 Test Item Value Reference Range Interpretation Comments Osmolality, Ur (test code 245 See_Comment [ Automated message] = 2695-5) The system [employer] generated this result transmitted ref erence range: 50-1,200 mOsm/kg mOsm/kg . The reference range was not used to int erpret this result as normal/abnormal . Lab Interpretation (test Normal code = 67178-2) [facility] HospitalOSMOLALITY, [id number] 12:43:16 Test Item Value Reference Range Interpretation Comments OSMOLALITY URINE 245 mOsm/kg See_Comment [Automated message] (BEAKER) (test code = The sy stem which 614) generated this result transmitted ref erence range: 50-1,200 mOsm/kg. The reference range was not used to int erpret this result as normal/abnormal . Sodium, random [id number] 11:48:27 Test Item Value Reference Range Interpretation Comments Sodium Urine (test 82 meq/L code = 2955-3) SUE (test code = Reference Range: No SUE) NormalsOperator ID - ADMIN [facility] HospitalU[facility] Nitrogen, random [id number] 11:48:27 Test Item Value Reference Range Interpretation Comments Urea Nitrogen, Ur 121 mg/dL (test code = 3095-7) SUE (test code = Reference Range: No SUE) NormalsOperator ID - ADMIN [facility] CenterODIUM[facility] RANDOM [id number] 11:48:27 Test Item Value Reference Range Interpretation Comments SODIUM URINE (BEAKER) (test code = 82 meq/L 243) Reference Range: No NormalsOperator ID - ADMINUREA NITROGEN, RANDOM URINE 2022-08-10 11:48:27 Test Item Value Reference Range Interpretation Comments UREA NITROGEN URINE (BEAKER) (test 121 mg/dL code = 538) Reference Range: No NormalsOperator ID - ADMINCreatinine, random [id number] 11:48:26 Test Item Value Reference Range Interpretation Comments Creatinine, Ur 20.9 mg/dL (test code = 2161-8) SUE (test code = Reference Range: No SUE) NormalsOperator ID - ADMIN [facility] HospitalCREATININE, RANDOM [id number] 11:48:26 Test Item Value Reference Range Interpretation Comments CREATININE URINE (BEAKER) (test 20.9 mg/dL code = 375) Reference Range: No NormalsOperator ID - ADMINWound culture + gram stain 2022-08-10 11:24:49 Test Item Value Reference Range Interpretation Comments Result (test code = No growth 6463-4) Gram Stain Result <1+ gram positive cocci (test code = 1123) in pairs [facility] HospitalWOUND CULTURE + GRAM [id number] 11:24:49 Test Item Value Reference Range Interpretation Comments CULTURE (BEAKER) (test No growth code = 1095) GRAM STAIN RESULT 4+ WBCs (BEAKER) (test code = 1123) GRAM STAIN RESULT <1+ gram positive cocci (BEAKER) (test code = in pairs 23002) T4, [id number] 11:12:44 Test Item Value Reference Range Interpretation Comments FREE T4 (BEAKER) (test code = 655) 1.25 ng/dL 0.70-1.48 Luggage Attendant ID - AAHAMIDOSMOLALITY, [id number] 11:11:51 Test Item Value Reference Range Interpretation Comments OSMOLALITY, SERUM (BEAKER) (test 271 mOsm/kg 275-295 L code = 615) TSH/FREE T4 IF [id number] 10:36:27 Test Item Value Reference Range Interpretation Comments THYROID STIMULATING HORMONE 10.385 uIU/mL 0.350-4.940 H (BEAKER) (test code = 772) Luggage Attendant ID - KGVLQZSADMBTXQB6328-50-07 10:30:32 Test Item Value Reference Range Interpretation Comments CORTISOL, TOTAL (BEAKER) (test 11.9 ug/dL 3.7-19.4 code = 2755) Luggage Attendant ID - AAHAMIDCT, DRAINAGE, SOFT TISSUE FLUID [id number] 09:56:00Reason for exam:->tubo-ovarian abscess [facility] CENTERName: GEETHA MINOR : 1975 [...] Whiteside Verified Date/Time: 08/10/2022 09:56:28 Reading Location: [address] Neuro Reading Room BASIC METABOLIC [id number] 06:16:41 Test Item Value Reference Range Interpretation [...] not appl icable for dialysis patien ts Luggage Attendant ID - ADMINSpecimen slightly pwienamHDIQMFRSJ7959-68-01 06:16:41 Test Item Value Reference Range Interpretation Comments MAGNESIUM (BEAKER) 1.9 mg/dL 1.6-2.6 Specimen slightly (test code = 627) hemolyzed Luggage Attendant ID - ADMINCBC (HEMOGRAM ONLY)2022-08-10 05:54:45 Test [...] 0-0 CELLS (BEAKER) (test code = 413) [id number] 04:19:50 Test Item Value Reference Range Interpretation Comments MAGNESIUM (BEAKER) (test code = 1.3 mg/dL 1.6-2.6 L 627) Luggage Attendant ID - MMBASIC METABOLIC [id number] 04:19:50 Test Item Value Reference Range Interpretation [...] not appl icable for dialysis patien ts Luggage Attendant ID - MMSpecimen slightly ictericCBC (HEMOGRAM ONLY)2022-08-09 [...] (BEAKER) (test code = 413) BASIC METABOLIC [id number] 06:27:34 Test Item Value Reference Range Interpretation [...] not appl icable for dialysis patien ts Luggage Attendant ID - DAMIÁN WSpecimen slightly ictericB-TYPE NATRIURETIC FACTOR (BNP) 2022-08-08 05:56:50 Test Item Value Reference Range Interpretation Comments B-TYPE NATRIURETIC PEPTIDE (BEAKER) 202 pg/mL 0-100 H (test code = 700) Luggage Attendant ID - BSCBC (HEMOGRAM ONLY)2022-08-08 05:36:13 Test [...] (BEAKER) (test code = 413) BASIC METABOLIC [id number] 05:39:11 Test Item Value Reference Range Interpretation [...] not appl icable for dialysis patien ts Luggage Attendant ID - ADMINSpecimen slightly ictericCBC (HEMOGRAM ONLY)2022-08-07 [...] 0-0 (BEAKER) (test code = 413) CT, [id number] 07:32:00Unlisted Reason for Exam - Click Yes and Enter Reason Below->NoProtocol Please Specify:->Standard ProtocolWill this procedure require oral contrast?->No [facility] 1975 Sex: FFINAL [...] MDReport Verified Date/Time: 08/06/2022 07:32:46 Reading Location: [facility] Diagnostic Imaging Reading Room - [place] [address] Pregnancy Screen, urine 2022-08-05 21:59:05 Test Item Value Reference Range Interpretation Comments Preg Test, Ur (test code = 2112-1) Negative Negative Lab Interpretation (test code = Normal 30352-9) [facility], [id number] 21:59:05 Test Item Value Reference Range Interpretation [...] CONCENTRATION Adequate (CELLAVISION)(BEAKER) (test code = 3438) Luggage Attendant ID - Salena comments: Slide comments:BASIC METABOLIC [...] not appl icable for dialysis patien ts Luggage Attendant ID - ADMINSpecimen slightly ictericPROTHROMBIN TIME/[id number] 21:25:45 Test Item Value Reference Range Interpretation [...] mechanical heart valves.CBC W/PLT COUNT & AUTO [id number] 21:20:49 Test Item Value Reference Range Interpretation [...] (BEAKER) (test code = 413) Transthoracic echo [id number] 16:18:18Ejection FractionSLEH ECHO HEARTLAB MKCKESSON [facility] CampusBASI MET[facility]OLIC [id number] 05:26:56 Test Item Value Reference Range Interpretation [...] not appl icable for dialysis patien ts Luggage Attendant ID - MMSpecimen slightly ictericCBC (HEMOGRAM ONLY)2022-08-03 [...] CONCENTRATION Decreased (CELLAVISION)(BEAKER) (test code = 3438) Luggage Attendant ID - Salena comments: Slide comments:CBC W/PLT COUNT & AUTO [id number] 14:52:12 Test Item Value Reference Range Interpretation [...] (BEAKER) (test code = 413) BASIC METABOLIC [id number] 13:40:34 Test Item Value Reference Range Interpretation [...] rted eGFR is based on the CKD-EPI 2021 equation t hat does not use a race coefficientEsti mated GFR is not as accur ate as Creatinine María Elena zain in predicting glom erular filtration rate . Estimated GFR is not appl icable for dialysis patien ts Luggage Attendant ID - ADMINSpecimen moderately ictericMYOCARD IMAGING, MULTI, PHARM, [id number] 15:12:00Unlisted Reason for Exam - Click Yes and Enter Reason Below->No[facility] : 1975 Sex: FFINAL REPORT PROCEDURE: MYOCARDIAL PERFUSION SPECT IMAGING (Rest/Stress)CPT CODE: 42691 INDICATION: Cardiac screening, high CAD risk CARDIOVASCULAR [...] Signed: Robbin Cerna Verified Date/Time: 08/01/2022 15:12:23 GLOBIN [id number] 13:52:52 Test Item Value Reference Range Interpretation Comments HEMOGLOBIN A1C 5.0 % See_Comment [Automated m essage] ELECTROPHORESIS (BEAKER) The system which (test code = 3811) generated this result transmitted ref erence range: <=5.6%. The reference range was not used to int erpret this result as normal/abnormal . "The A1c is measured using a [facility]-certified method. HbA1c value equal to or greater than 6.5% as thediagnosis cutoff for diabetes. An HbA1c value of 5.7- 6.4% indicates increased risk for diabetes (prediabetes)."Luggage Attendant ID - ADM (CELLAVISION MANUAL DIFF)2022-08-01 08:26:35 [...] CONCENTRATION Decreased (CELLAVISION)(BEAKER) (test code = 3438) Luggage Attendant ID - Remy Deandreo-onUser comments: Slide comments:CBC W/PLT COUNT & AUTO [id number] 08:26:34 Test Item Value Reference Range Interpretation [...] (BEAKER) (test code = 413) HCG, QUANTITATIVE, [id number] 05:48:18 Test Item Value Reference Range Interpretation Comments GONADOTROPIN, CHORIONIC (HCG) QUANT < mIU/mL 0-10 (BEAKER) (test code = 649) Non- Females: <10 mIU/mL Females: Gestation Age Reference Range(mIU/mL) 0.2-1 Week 5-50 1-2 Weeks 50-500 2-3 Weeks 100-5,000 3-4 Weeks 500-10,000 4-5 Weeks 1,000-50,000 5-6 Weeks 10,000-100,000 6-8 Weeks 15,000- 200,000 2-3 Months 10,000-100,000 Luggage Attendant ID - DBBASI METABOLIC PANEL 2022-08-01 05:41:39 [...] not appl icable for dialysis patien ts Luggage Attendant ID - DAMIÁN WSpecimen moderately [id number] 05:41:38 Test Item Value Reference Range Interpretation Comments MAGNESIUM (BEAKER) (test code = 1.7 mg/dL 1.6-2.6 627) Luggage Attendant ID - DAMIÁN [id number] 05:41:38 Test Item Value Reference Range Interpretation Comments PHOSPHORUS (BEAKER) (test code = 3.0 mg/dL 2.3-4.7 604) Luggage Attendant ID Gisele [employer] WPT/LPTK9060-40-00 05:39:59 Test Item Value Reference Range Interpretation [...] 2.5-3.5 for patients with mechanical heart valves.LIPID [id number] 22:24:08 Test Item Value Reference Range Interpretation [...] Borderline 130-159 High 160-189 Very High >=190 Luggage Attendant ID - YQBSHJ455Qiaalavq ID - XRGRHO218Bjoxmqgv ID - SSPPYF992Xmptdcjd slightly icteric U/S, ENDOVAGINAL (EV)2022-07-31 14:38:00Reason for exam:->concern for [facility] CENTERName: IVÁNLAWGEETHA L : 1975 Sex: FFINAL REPORT TECHNIQUE: [...] Duran MDReport Verified Date/Time: 07/31/2022 14:38:44 U/S, [id number] 14:38:00Reason for exam:->concern for [facility] : 1975 Sex: FFINAL [...] follow-up imaging with ultrasound. Signed: Shauna Duran [facility] Verified Date/Time: 07/31/2022 14:38:44 U/S, DUPLEX, [id number] 14:38:00 [facility] Irineo : 1975 Sex: [...] follow-up imaging with ultrasound. Signed: Shauna Duran MDRepwestern [facility] Verified Date/Time: 07/31/2022 14:38:44 CBC W/PLT COUNT & AUTO [id number] 03:57:39 Test Item Value Reference Range Interpretation [...] H PERCENT (BEAKER) (test code = 2801) [id number] 03:56:52 Test Item Value Reference Range Interpretation Comments MAGNESIUM (BEAKER) (test code = 1.5 mg/dL 1.5-3.0 627) Luggage Attendant ID - UWNB94Wtipugki ID - JEXP58Worbzcks ID - TULD94Yrwfxpor ID - ZNMP04 BASIC METABOLIC [id number] 03:55:31 Test Item Value Reference Range Interpretation [...] not appl icable for dialysis patien ts Luggage Attendant ID - ERYP03Xlngqryj ID - EWAC04Xprqnryn ID - TPAK03Iicnklpd ID - BZGP55Urklmcuz ID - MBPJ57Dxcnrqpm ID - IRND86Wkyjrpwx ID - AHNJ02Vgberlvv ID - RGQG38Bbtkfmfc ID - APOI55Dsdowjuy slightly xlgxwnbGNEYVIMXBW4311-99-77 03:54:07 Test Item Value Reference Range Interpretation Comments PHOSPHORUS (BEAKER) (test code = 4.0 mg/dL 2.5-4.5 604) Luggage Attendant ID - OIEK82XVEYAHQJH0730-49-05 18:37:08 Test Item Value Reference Range Interpretation Comments MAGNESIUM (BEAKER) (test code = 1.6 mg/dL 1.5-3.0 627) Luggage Attendant ID - [id number] ID - LQJCJ608Aofvmwwt ID - JGMIM068Xesppikg ID - [id number], CHEST, 1 VIEW, NON [id number] 16:51:00Reason for exam:->SOB, wheezingShould this be performed at the bedside?->Yes [facility] 1975 Sex: [...] MDReport Verified Date/Time: 07/30/2022 16:51:52 Reading Location: [facility] Radiology Reading Room BASI METABOLIC PANEL [...] not appl icable for dialysis patien ts Luggage Attendant ID - NCALF675Ptlfnqsk ID - VMRIN991Lbzcnfqp ID - CDVJA697Erofpqtz ID - DMZYQ595Gwnwsxyg ID - ETKRX672Yctotoqy ID - FYFXN604Qckmjpiq ID - SFTPC014Ljzfrkom ID - NDUYR190Wogstmwm ID - PBCBI744Axurvjgx ID - KTYEF131Zixabhnw ID - LZBRL719Curniijd ID - PYDKI118RSWHXIRVKAM TIME/INR 2022-07-30 16:00:01 Test Item Value Reference [...] mechanical heart valves.CBC W/PLT COUNT & AUTO [id number] 15:52:31 Test Item Value Reference Range Interpretation [...] PERCENT (BEAKER) (test code = 2801) TISSUE [id number] 12:09:00Surgical Pathology Report Case: [id number] Authorizing Provider: Trudy James MD Collected: 02/17/2019 1126 Ordering Location: [address] Received: 02/17/2019 1147 Service Pathologist: Angela Beach MD Specimen: Gallbladder A. GALLBLADDER, CHOLECYSTECTOMY: - CHRONIC CHOLECYSTITIS WITHCHOLELITHIASIS. Signing Pathologist Direct Phone Line: [phone] signed by Angela Beach MD on 02/19/2019 at 12:09 TY28380Xtum renal mass Gallbladder Received in formalin labeled [...] trabeculated. The wall measures 0.2 cm thick. Clinical Safety Manager sections are submitted in A1-A2, with the inked proximalmargin is A1. PA/ew Performed.[facility], Department of Pathology, [address] [place] [address], [facility], Department of Pathology, [address] [place] [address], RatchzO[facility], Department of Pathology, [address] [place] [address], QNH W/PLT COUNT & AUTO [id number] 07:03:00 Test Item Value Reference Range Interpretation [...] (BEAKER) (test code = 2801) BASIC METABOLIC [id number] 06:57:00 Test Item Value Reference Range Interpretation [...] APPLICABLE FOR DIALYSIS PATIEN TS. HEPATIC FUNCTION [id number] 06:57:00 Test Item Value Reference Range Interpretation [...] (test code = 347) hemolyzed HEPATIC FUNCTION [id number] 06:57:00 Test Item Value Reference Range Interpretation [...] 72 U/L 6-55 H 347) BASIC METABOLIC [id number] 06:57:00 Test Item Value Reference Range Interpretation [...] PATIEN TS. CBC W/PLT COUNT & AUTO [id number] 06:28:00 Test Item Value Reference Range Interpretation [...] PERCENT (BEAKER) (test code = 2801) SCREEN, [id number] 07:28:00 Test Item Value Reference Range Interpretation Comments TEST URINE (BEAKER) (test Negative code = 583) [id number] 07:28:00 Test Item Value Reference Range Interpretation Comments MAGNESIUM (BEAKER) 2.0 mg/dL 1.6-2.6 Specimen moderately (test code = 627) hemolyzed [id number] 07:28:00 Test Item Value Reference Range Interpretation Comments PHOSPHORUS (BEAKER) 4.0 mg/dL 2.3-4.7 Specimen moderately (test code = 604) hemolyzed BASIC METABOLIC [id number] 07:28:00 Test Item Value Reference Range Interpretation [...] APPLICABLE FOR DIALYSIS PATIEN TS. HEPATIC FUNCTION [id number] 07:28:00 Test Item Value Reference Range Interpretation [...] Specimen moderately (test code = 347) hemolyzed [id number] 07:28:00 Test Item Value Reference Range Interpretation Comments LIPASE (BEAKER) (test code = 749) 31 U/L 8-78 CBC W/PLT COUNT & AUTO [id number] 07:10:00 Test Item Value Reference Range Interpretation [...] (BEAKER) (test code = 2801) U/S, ABDOMINAL, [id number] 23:50:00Abdomen limited area? Add comment if clarification [...] Date/Time: 02/15/2019 23:50:53 URINALYSIS W/ REFLEX URINE [id number] 22:43:00 Test Item Value Reference Range Interpretation [...] SOURCE(BEAKER) (test code = 2795) HEPATIC FUNCTION [id number] 17:03:00 Test Item Value Reference Range Interpretation [...] Specimen slightly (test code = 347) hemolyzed [id number] 16:00:00 Test Item Value Reference Range Interpretation Comments MAGNESIUM (BEAKER) 2.1 mg/dL 1.6-2.6 Specimen slightly (test code = 627) hemolyzed BASIC METABOLIC [id number] 16:00:00 Test Item Value Reference Range Interpretation [...] hemolyz ed (test code = 364) PROTHROMBIN TIME/[id number] 15:31:00 Test Item Value Reference Range Interpretation [...] is 2.5-3.5 for patients wiht mechanical heart valves.[id number] 15:31:00 Test Item Value Reference Range Interpretation Comments PARTIAL THROMBOPLASTIN TIME 31.4 seconds 22.5-36.0 (BEAKER) (test code = 760) CBC W/PLT COUNT & AUTO [id number] 15:14:00 Test Item Value Reference Range Interpretation [...] Consult Notes Date/Time Note Provider Source 2022-11-28 7555-58-18R94:23:09Associated Patrick Wallace OT [facility] 10:23:09 Order(s): CONSULT ADULT OCCUPATIONAL THERAPY OT GENERAL EVALUATIONConsult received via [employer], EMR reviewed and evaluation completed 11/28/22. Patient referred to occupational therapy for evaluation and treatment. Patient is 47 year old female with chest pain, NSTEMI. 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 20735-0Iiedfqf geplUA5538-98-13N94:15:28Consult noteTXT1.2.840.357359.1.13.104.2.7.2 .180176|[id number] for patient gfyy43863-5Kmlxckh mcvyUB882442903Gkswpn C Lawas [address] [id number] OENJNESCSOLKPCOAYXTUSA9164-78-21H10: 15:281.2.840.824400.1.72.3.15|1.2.84 0.193845.1.13.104.2.7.2.727879_18983 63734 2022-11-28 4550-12-14Q10:45:00Associated Savanna Hemphillkota [facility] 09:45:00 Order(s): CONSULT ADULT PHYSICAL THERAPY [...] setting of methamphetamine use), CAD c/b unspecified IA (02/2022 per CareEverywhere), HFpEF, hypertension, hyperlipidemia, COPD, GERD, and seizure disorder (not on medications) presenting as a transfer from [facility] for NSTEMI. Troponin peaked at 1.34 [...] setting of methamphetamine use), CAD c/b unspecified IA (02/2022 per CareEverywhere), HFpEF, hypertension, hyperlipidemia, COPD, GERD, and seizure disorder (not on medications) presenting as a transfer from [facility] for NSTEMI. Troponin peaked at 1.34 [...] a SS house, and sisterDME: Wheel Chair m2Hfomg level of Mobility: requires assistance with transfers, requires assistance with bed mobility, uses w/c primarily, family/caregiver. Per patient, her sister puts her on the wheelchair, pushes her on the wheelchair since 2022Suspected ischemic or hemorraghic stroke:Yes, Pre-Stroke Modified [place] Score: 4 - Moderately severe disability; unable to walk without assistance and unable to attend to own bodily needs without assistance Subjective: "My sister pushes me around"Patient/Family Goals: To go homePatient/Family verbalizes understanding of condition: Yes PAIN: denies pain before and after sessionCOMMUNICATIONPrimary Language: Luxembourger Able to Verbalize needs: Yes Vision:good; no [...] Time in Minutes: 33 minSavanna Juarez PT, DPTUnTexas Health Presbyterian Hospital Flower MoundRehabilitation Services A physical therapy evaluation of high [...] clinical presentation with unstable and unpredictable characteristics 07392-7Ouuzzhp ueqqYI4083-83-37S31:53:18Consult noteTXT1.2.840.511318.1.13.104.2.7.2 .697610|[id number] for patient ymgc55995-0Yazuaqc kdcjJZ394571828Xmzpww [address] Yg[id number] CXZCTBHDJDTWNGKJNBGVVW8088-77-11Z66: 53:181.2.840.715949.1.72.3.15|1.2.84 0.803058.1.13.104.2.7.2.727879_18983 93795 2022-11-25 0063-19-15F61:49:18Associated PN-NEUROLOGY [facility] - Health 18:49:18 Order(s): CONSULT NEUROLOGY STROKE SERVICE CONSULTDATE [...] (mIU/L) Date Value 11/24/2022 2.03 Recent Labs 801 TROPNI 0.911* 0.579* RADIOLOGY CT HEAD WO [...] with Dr. Rivera, Neurology Faculty Stroke pager: [phone] Shahnaz Borges, MDPGY-4, NeurologyPager: [phone] signed by Romaine Rivera MD at 11/26/2022 [...] reported) and/or communicating results to the patient/family/caregiver. 50143-6Mvbetmr twpnEW1256713Jikuzuau, Hashem1.2.840.133188.1.13.104.2.7.2. 272702ArdhawizOqmmgwKC2899-95-79L49: 21:11Consult noteTXT1.2.840.081421.1.13.104.2.7.2 .191642|[id number] for patient zyas76328-9Ynogijj ddpyPOLS-WGMIMSHVFLQ-UCYPYZVHKVRRXVW [address] Op[id number] ZAYZVSREHNPKRLDFRAFLXK5512-51-01W23: 21:111.2.840.768949.1.72.3.15|1.2.84 0.008034.1.13.104.2.7.2.727879_18956 37498 2022-11-25 6687-49-80N70:00:00Associated Analy Caceres [facility] 18:00:00 Order(s): CONSULT PS PASTORAL Filippo CARE Log Loader Helper visited with patient in response to consult for pastoral care and support. Patient was awake and acknowledged frame gate mortiser operator's presence. Pt was alone in room. The Pt said she was of [employer]. The PT. Expressed to the Log Loader Helper of some fear,about her upcomming surgery that going to be done on her heart.Pt asked the Log Loader Helper to pray for her and for God to give her peace. The Log Loader Helper provided spiritual support through prayer of healing, peace and comfort. Log Loader Helper provided pastoral presence, and validated feelings. Pastoral care will continue to follow up as needed. Rev.Analy Ferro IUSAINT [facility]OU[facility] Department of Pastoral CarePh: [phone]: [phone] 78974-5Uckpamv eqslKS5143-16-85D70:31:33Consult noteTXT1.2.840.080295.1.13.104.2.7.2 .760279|[id number] for patient adov87322-8Qoygcyl qnnvSI261908343Bckjhdn M [address][id number] EUJOPRZUPJSWQEXTKHWJEY6443-00-19J73: 31:331.2.840.608100.1.72.3.15|1.2.84 0.001562.1.13.104.2.7.2.727879_18956 49554 2022-11-25 1768-29-57N60:53:13Associated PED-PEDIATRICS [facility] 10:53:13 Order(s): CONSULT ALLERGY ALLERGY & IMMUNOLOGY CONSULT NOTEDATE OF SERVICE: 11/25/22REASON FOR CONSULT: Aspirin allergyHPI: Patient is a 47 year old female with a past medical history significant for recent hemorrhagic stroke (10/29/22; 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 - Plan also explained to via romanian translatorPatient seen with Dr. Magaña. Thank you [...] see the fellow's note for additional details. 25120-6Kfpbjeq oytxNZ1604041Oddl, Sarah1.2.840.606001.1.13.104.2.7.2.8 05472KzvlVepnkCG5316-66-02E69:58:19C onsult noteTXT1.2.840.084183.1.13.104.2.7.2 .980478|[id number] for patient tbqb29598-1Rmoytvd wofjXCAQP-WSGGTOPNNBLUJ-TNBLBHVIXMHL [address] StreetPonxFwuxp[id number] OVDCDDHTPVEKKDXOJABAXN2740-27-68Y99: 58:191.2.840.502921.1.72.3.15|1.2.84 0.968780.1.13.104.2.7.2.727879_18954 19094 2022-11-24 6677-29-19E43:08:12Associated NS-NEUROLOGICAL [facility] 16:08:12 Order(s): CONSULT SURGERY NEUROSURGERY NEUROSURGERY CONSULTATION HISTORY AND PHYSICALAttending Neurosurgeon: Dr. 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 [...] 100% 100% Weight: Height: Awake, alert, oriented q8CANZU bilaterally at 3mmEOMI bilaterallySlight left lower facial weaknessTongue midlineIntact CNI-XII, aside from left CN XIRUE 5/5LUE no movementRLE 5/5LLE withdraw to stimSensation intact to LT throughoutExam deep tendon: 2+ patellars BLNo drift appreciated on right No clonusNo Pelletier'sLabs:Recent Labs 09/09/624373 WBC 6.05 HGB 10.4* HCT 30.6* PLT [...] setting of methamphetamine use), CAD c/b unspecified IA (02/2022 per CareEverywhere), HFpEF, hypertension, hyperlipidemia, COPD, GERD, and seizure disorder (not on medications) presenting as a transfer from [facility] for NSTEMI currently on heparin drip. NSGY consulted for recs regarding heparin in light of recent hemorrhagic stroke. Pt at neurologic baseline s/p stroke.Recommendations:No neurosurgical interventionPlease consult neurology for management and recommendations of anticoagulation w/ hx of hemorrhagic strokeWill sign off at this timeChristian MD CindyNeurosurgery ServiceFor inquiries please page [phone] signed by Burton Howell MD at 11/25/2022 12:23 PM CDTAssociated attestation - Burton Howell MD - 11/25/2022 12:23 PM CDT I personally evaluated and am primary in decision making on, Geetha Minor, and I agree with the documentation by Sinan White MD,neurosurgery resident.83348-3Kwcdemo zfzeDP4891437Fvdoag, Rudy P1.2.840.986015.1.13.104.2.7.2.70217 6MyteibUikdAXP0694-52-84D17:23:14Con [facility] noteTXT1.2.840.274504.1.13.104.2.7.2 .269476|[id number] for patient dthw84644-2Dvrzpjc noteLNNS-NEUROLOGICAL SURGERYNS-NEUROLOGICAL SURGERY[id number] XKSDBSGNXTKSVFHCWNGSYV2270-38-29A92: 23:141.2.840.113518.1.72.3.15|1.2.84 0.186060.1.13.104.2.7.2.727879_18954 56477 History and Physical Notes Date/Time Note Provider Source 2022-11-24 11:33:08 4401-73-75M34:33:08Formatting of this note [facility] is different from the original.Images from the original note were not included.CCU History and Physical Date of Service: 11/24/2022 15:48 ICU day: Intubation Day: CHIEF COMPLAINT: Chest painHistory of Present IllnessGeetha Minor is a 47 year old female with a past medical history significant for recent hemorrhagic stroke (10/29/22; 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 On my interview, patient [...] for amphetamines during her recent hospitalization.Workup at [facility] showed ST depression and TWI in [...] 454 ms QTC Calculation(Bazett) 460 ms P Ringle 19 degrees R Ringle 64 degrees T Ringle 254 degrees Normal sinus rhythm Possible Left [...] sedated at OSH prior to transfer to [facility], extubated on 10/30, required nicardipine gtt [...] develop- Sedation/Analgesia: NoneRespCOPDHx tobacco abuse- DuoNebs prn- W2ICAihjgxibcqsxedEHSDXDRgbcc painReported CAD HFpEFBradycardiaHTNHLDPatient presenting as a transfer from [facility] with NSTEMI. 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) Number of days: 0 Dispo: CCUPrognosis: GuardedCode Status: FullJordan CHANTALE LauGY-3, Department of Internal Medicine ssociated attestation - [...] ordering referrals and/or communicating with other health housekeeper child care (when not separately reported), documenting clinical information in the electronic or other health record, and care coordination (not separately reported).- hemodynamically stable- Neurosurgery consult for systemic AC / DAPT in the future, given h/o ICH- allergy consult for ASA desensitizationJOSE Cierra GONZALEZ MD, [facility] [place], [facility], [facility]ITALAAssistant ProfessorCardiology, Advanced Heart Failure, LVAD & Transplant ServiceDate of service: [id number] and physical [id number]-Uvzscxnj, Jose [id number] ownqw-[id number]:30:41Hi story and physical [id number] 9|[id number] for patient [id number] and physical noteLN[address] Y[id number] [id number]:30:[id number] .[id number]. [id number]
--- NOTE | 2023-01-20 21:06 | RAD REPORT ---
EXAM DESCRIPTION: RADCristinat Pa And Lat (2 Views)01/20/2023 8:40 pm CLINICAL HISTORY: CHEST PAIN COMPARISON: Chest Single View dated 01/18/2023; Chest Single View dated 01/12/2023; Chest Single View dated 01/08/2023; Chest Single View dated 01/03/2023 TECHNIQUE: Portable AP view of the chest. FINDINGS: The lungs are clear. No pneumothorax or effusion. The cardiomediastinal contours are unre markable. IMPRESSION: No acute cardiopulmonary process.
--- NOTE | 2023-01-20 21:38 | ER ---
Nurse's Notes [facility] Name: Geetha Khan Age: 47 yrs Sex: Female : 1975 Arrival Date: 01/20/2023 Time: 19:57 Bed IW1 Private MD: Diagnosis: Chest pain, unspecified;Noncardiac chest pain Presentation: 01/20 19:59 Chief complaint: EMS states: Midsternal chest pain that started 90 mins ago. Pt stated hb "I have an aneurysm and it hurts,". Coronavirus screen: At this time, the client does not indicate any symptoms associated with coronavirus-19. Ebola Screen: No symptoms or risks identified at this time. Initial Sepsis Screen: Does the patient meet any 2 criteria? No. Patient's initial sepsis screen is negative. Does the patient have a suspected source of infection? No. Patient's initial sepsis screen is negative. Risk Assessment: Do you want to hurt yourself or someone else? Patient reports no desire to harm self or others. Onset of symptoms was January 20, 2023. 19:59 Method Of Arrival: EMS: [facility] hb 19:59 Acuity: CORRINA 3 hb Triage Assessment: 20:01 General: Appears in no apparent distress. Behavior is calm, cooperative, appropriate bp for age. Pain: Complains of pain in chest. Cardiovascular: Reports chest pain, since YEARS. Historical: - Allergies: 20:01 Aspirin; hb 20:01 CRANBERRY; hb 20:01 FISH PRODUCT DERIVATIVES; hb 20:01 GRAPEFRUIT; hb 20:01 mushrooms; hb - PMHx: 20:01 Asthma; Cerebrovascular accident; COPD; CVA; Left sided deficits.; Hypertension; hb Myocardial infarction; Seizures; Thyroid problem; - Immunization history:: Adult Immunizations up to date. - Social history:: Smoking status: Patient reports the use of cigarette tobacco products, smokes one pack cigarettes per day. - Family history:: not pertinent. Screenin:45 [facility] ED Fall Risk Assessment (Adult) History of falling in the last 3 months, bp including since admission No falls in past 3 months (0 pts). Abuse screen: Denies threats or abuse. Denies injuries from another. Nutritional screening: No deficits noted. Tuberculosis screening: No symptoms or risk factors identified. Assessment: 21:45 Reassessment: DC HOME VIA W/C, FAMILY CONTACTED FOR TRANSPORT. bp Vital Signs: 19:59 BP 148 / 89; Pulse 85; Resp 16; Temp 98.4; Pulse Ox 100% on R/A; Weight 63.5 kg; Height hb 5 ft. 2 in. ; Pain 10/10; 19:59 Body Mass Index 25.61 (63.50 kg, 157.48 cm) hb 19:59 Pain Scale: Adult hb ED Course: 19:59 Patient arrived in ED. hb 20:00 Uriel Cannon MD is Attending Physician. sp4 20:01 Triage completed. hb 20:01 Arm band placed on. hb 20:16 Troponin High Sensitivity Sent. hb 20:16 Initial lab(s) drawn, by me, sent to lab. 5 20:41 Chest Pa And Lat (2 Views) XRAY In Process Unspecified. EDMS 21:45 Patient has correct armband on for positive identification. Provided Education on: N/A. bp Cardiac monitoring not applicable on this patient. 21:45 No provider procedures requiring assistance completed. Patient did not have IV access bp during this emergency room visit. Patient maintains SpO2 saturation greater than 95% on room air. Administered Medications: No medications were administered Medication: 21:45 VIS not applicable for this client. bp Outcome: 21:38 Discharge ordered by . sp4 21:45 Discharged to home via wheelchair, bp 21:45 Condition: stable 21:45 Discharge instructions given to patient, Instructed on discharge instructions, follow up and referral plans. Demonstrated understanding of instructions, follow-up care, 21:47 Patient left the ED. bp Signatures: Dispatcher [employer] EDTX Kristin Barrera RN RN hb Peltier, Brian, RN RN Uriel Bravo MD MD sp4 Cahoon, Moriah 5 Corrections: (The following items were deleted from the chart) 20:19 20:19 Initial lab(s) drawn, by me, sent to lab. 5 5
--- NOTE | 2023-01-20 21:38 | EDPHYS ---
Physician Documentation [facility] Name: Geetha Khan Age: 47 yrs Sex: Female : 1975 Arrival Date: 01/20/2023 Time: 19:57 Bed IW1 Private MD: ED Physician Uriel Cannon HPI: 01/20 20:00 This 47 yrs old Female presents to ER via Unassigned with complaints of Chest sp4 Pain. 20:08 CT review from prior visit - EXAM DESCRIPTION: CT - Chest For Pe Angio - 01/19/2023 6:29 sp4 am CLINICAL HISTORY: The patient is 47 years old and is Female; CHEST PAIN TECHNIQUE: Axial computed tomographic angiography images of the chest with intravenous contrast. This CT exam was performed using one or more of the following dose reduction techniques: automated exposure control, adjustment of the mA and/or kV according to patient size, and/or use of iterative reconstruction technique. MIP reconstructed images were created and reviewed. Oblique reformatted images were created and reviewed. DLP: 311 mGy*cm COMPARISON: Chest radiograph of the same day. FINDINGS: PULMONARY ARTERIES: Unremarkable. No pulmonary embolism. AORTA: Aneurysm of the ascending aorta measuring approximately 4.3 cm. LUNGS: Unremarkable. No mass. No consolidation. PLEURAL SPACE: Unremarkable. No significant effusion. No pneumothorax. HEART: Coronary calcifications. No significant pericardial effusion. No evidence of RV dysfunction. MEDIASTINUM: Moderately prominent multifocal mediastinal lymph nodes predominantly in the AP window. BONES/JOINTS: No acute fracture. No dislocation. SOFT TISSUES: Unremarkable. LYMPH NODES: See above. IMPRESSION: 1. Aneurysm of the ascending aorta measuring approximately 4.3 cm. 2. No pulmonary embolism. No acute intrathoracic abnormality. Electronically signed by: Quentin Hernandez DO 01/18/2023 11:40 PM. 20:09 [facility] review - Date of Procedure: 12/05/2022 Surgeon: JAYNA DIAZ Procedure Performed: sp4 Selective angiogram. Indication: Abnormal stress test, elevated troponin. Access: Right femoral artery 6-Wallisian closed with StarClose and minimal pressure. Complications: None. Bleeding: Less than 20 mL. Description Of Procedure: After risks, benefits, alternatives were explained, patient agreed to procedure and signed informed consent. Patient was brought into cardiac catheterization laboratory, prepped and draped in sterile fashion. An access right femoral artery using micropuncture ultrasound guidance fluoroscopy of a 6-Wallisian [place] sheath and took a 6-Wallisian JL4 catheter. Aortic root engaged left main, took standard views and exchanged for a 6-Wallisian JR4 catheter, engaged the RCA and took 7 views and then removed the catheter and sheath. StarClose was used for closure with good hemostasis. Findings: 1. Left main: Normal. 2. LAD: Entirely normal luminal regularities. 3. Left circumflex is with luminal irregularities throughout. 4. RCA: Proximal 30%, otherwise normal. Conclusion: No significant coronary artery disease.. Patient presents with EMS for persistent midsternal chest pains. Recent admission the record indicates that patient was admitted on 01/08/2023 for evaluation of chest pains with consult to cardiology. Patient has history of hyperlipidemia hypertension tobacco use disorder. Otherwise history of DYLAN chronic diastolic heart ybwxfpa-rdaf-hio with seizure disorder history of CVA. Patient was admitted and her troponins were negative on 01/08/2023 through 01/10/2023. It was no STEMI criteria. Left heart cath work-up on 12/05/2022 revealed no significant coronary artery disease no necessity for stents. No further work-up was recommended during hospitalization. Patient had mild DYLAN. This is improved with IV fluid administration. Patient's medications include atorvastatin 40 mg daily, folic acid 1 mg daily hydrocodone 5 every 8 hours as needed pain, metoprolol 25 mg bedtime, lisinopril 20 mg daily, no additional medications . . Historical: - Allergies: 20:01 Aspirin; hb 20:01 CRANBERRY; hb 20:01 FISH PRODUCT DERIVATIVES; hb 20:01 GRAPEFRUIT; hb 20:01 mushrooms; hb - PMHx: 20:01 Asthma; Cerebrovascular accident; COPD; CVA; Left sided deficits.; Hypertension; hb Myocardial infarction; Seizures; Thyroid problem; - Immunization history:: Adult Immunizations up to date. - Social history:: Smoking status: Patient reports the use of cigarette tobacco products, smokes one pack cigarettes per day. - Family history:: not pertinent. ROS: 20:09 Constitutional: Negative for fever, chills, and weight loss, positive for midsternal sp4 chest pains. Eyes: Negative for injury, pain, redness, and discharge, 20:09 All other systems are negative, Exam: 20:09 Constitutional: This is a well developed, well nourished patient who is awake, alert, sp4 and in no acute distress. Head/Face: Normocephalic, atraumatic. Eyes: Pupils equal round and reactive to light, extra-ocular motions intact. Lids and lashes normal. Conjunctiva and sclera are not injected. Cornea within normal limits. Periorbital areas with no swelling, redness, or edema. ENT: Nares patent. No nasal discharge, no septal abnormalities noted. Tympanic membranes are normal and external auditory canals are clear. Oropharynx with no redness, swelling, or masses, exudates, or evidence of obstruction, uvula midline. Mucous membranes moist. Neck: Trachea midline, no thyromegaly or masses palpated, and no cervical lymphadenopathy. Supple, full range of motion without nuchal rigidity, or vertebral point tenderness. Chest/axilla: Normal chest wall appearance and motion. Nontender with no deformity. No lesions are appreciated. Cardiovascular: Regular rate and rhythm with a normal S1 and S2. No gallops, murmurs, or rubs. Normal PMI, no JVD. No pulse deficits. Respiratory: Lungs have equal breath sounds bilaterally, clear to auscultation and percussion. No rales, rhonchi or wheezes noted. No increased work of breathing, no retractions or nasal flaring. Abdomen/GI: Soft, non-tender, with normal bowel sounds. No distension or tympany. No guarding or rebound. No evidence of tenderness throughout. Back: No spinal tenderness. No costovertebral tenderness. Skin: Warm, dry with normal turgor. Normal color with no rashes, no lesions, and no evidence of cellulitis. MS/ Extremity: Pulses equal, no cyanosis. Neurovascular intact. Full, normal range of motion. Neuro: Awake and alert, GCS 15, oriented to person, place, time, and situation. Cranial nerves II-XII grossly intact. Motor strength 5/5 in all extremities. Sensory grossly intact. Psych: Awake, alert, with orientation to person, place and time. Behavior, mood, and affect are within normal limits 20:09 ECG was reviewed by the Attending Physician. EKG time 2056, normal sinus rhythm at the rate of [address] left ventricular hypertrophy. No ST elevation. No ectopy on EKG. Vital Signs: 19:59 BP 148 / 89; Pulse 85; Resp 16; Temp 98.4; Pulse Ox 100% on R/A; Weight 63.5 kg; Height hb 5 ft. 2 in. ; Pain 10; 19:59 Body Mass Index 25.61 (63.50 kg, 157.48 cm) hb 19:59 Pain Scale: Adult hb MDM: 20:19 Patient medically screened. sp4 21:29 HEART Score: History: Slightly Suspicious (0), ECG: Non specific repolarization sp4 disturbance / LBTB / PM (1), Age: > 45 and < 65 years (1), Risk Factors: > or = 3 Risk factors for atherosclerotic disease (2), Troponin: < or = 1 x Normal Limit (0), Total Score = 4. ED course: EXAM DESCRIPTION: Royer Rodriguez (2 Views)01/20/2023 8:40 pm CLINICAL HISTORY: CHEST PAIN COMPARISON: Chest Single View dated 01/18/2023; Chest Single View dated 01/12/2023; Chest Single View dated 01/08/2023; Chest Single View dated 01/03/2023 TECHNIQUE: Portable AP view of the chest. FINDINGS: The lungs are clear. No pneumothorax or effusion. The cardiomediastinal contours are unremarkable. IMPRESSION: No acute cardiopulmonary process. . 21:30 The patient was not given aspirin in the Emergency Department. Aspirin not given, sp4 patient refused. Data reviewed: vital signs, nurses notes, old medical records, lab test result(s), cardiac enzymes, troponin i, EKG, radiologic studies, plain films. 21:39 Differential diagnosis: acute pericarditis, anxiety, coronary artery disease chest wall sp4 pain, congestive heart failure costochondritis, esophagitis. ED course: No sign of ACS right now, patient apparently has made multiple visits to the emergency room with 6 visits in December and second visit today in January. At this time there is no emotional dangerous problem based on exam assessment and prior records reviewed. It was explained to the patient that during the COVID and influenza season it is very dangerous to visit emergency room for nonemergent problems. Patient is advised to see her primary care physician for pain management or visit dedicated paint stockman for management of chronic chest pains and absence of acute cardiac emergency. . 01/20 20:06 Order name: Troponin High Sensitivity; Complete Time: 21:25 sp4 01/20 20:09 Order name: Chest Pa And Lat (2 Views) XRAY; Complete Time: : sp4 01/20 20:00 Order name: EKG; Complete Time: 20: sp4 01/20 20:00 Order name: EKG - Nurse/Tech; Complete Time: 20:07 sp4 EC:09 Rate is 84 beats/min. Rhythm is regular, Sinus Rhythm. QRS [place] is Normal. SC interval sp4 is normal. QRS interval is normal. QT interval is normal. No Q waves. T waves are Inverted in lead V6. No ST changes noted. Clinical impression: No evidence of ischemia. Interpreted by me. Administered Medications: No medications were administered Disposition Summary: 01/20/23 21:38 Discharge Ordered Problem: new sp4 Symptoms: have improved sp4 Condition: Fair sp4 Diagnosis - Chest pain, unspecified sp4 - Noncardiac chest pain sp4 Followup: sp4 - With: Private Physician - When: 7 - 10 days - Reason: Recheck today's complaints Discharge Instructions: - Discharge Summary Sheet sp4 - Chest Wall Pain sp4 Forms: - Patient Portal Instructions sp4 Signatures: Dispatcher [employer] Kristin Gaona RN RN hb Potepalov, Sergey, MD MD sp4
[2023-01-20 22:14] VITALS: BP 148/89; TEMP 98.4; O2SAT 100
--- NOTE | 2023-01-26 14:35 | EKG ---
Test Date: 2023-01-20 Test Time: 20:57:24 Termite Helper: PIERRE MEASUREMENT RESULTS: Intervals: Rate: 84 KS: 184 QRSD: 92 QT: 396 QTc: 467 [place]: P: 34 KS: 184 QRS: -6 T: 154 INTERPRETIVE STATEMENTS: Normal sinus rhythm Left ventricular hypertrophy with repolarization abnormality Abnormal ECG Compared to ECG 01/18/2023 17:41:36 No significant changes Electronically Signed On 01-26-23 14:18:31 BREAD SLICER MACHINE by Josse Olson
== END 2023-01-20 21:47 | disposition home or self-care (01) ==
LOC: ER 19:57
DX: R07.89 Other chest pain (principal); I10 Essential (primary) hypertension; I25.2 Old myocardial infarction; F17.210 Nicotine dependence, cigarettes, uncomplicated
CPT/HCPCS: 36415; 71046; 84484; 93005; 99284

== ENCOUNTER 2023-02-03 21:00 | Emergency (ER) | payer SELFPAY ==
--- OUTSIDE RECORDS SUMMARY | 2023-02-03 21:09 | XMS REPORT | Continuity of Care Document ---
:1975 Author Organization [facility] t Address [address] [facility] [address] [place] [address] Care Team Providers Name Role Phone Pcp, Patient Does Not Have A Primary Care Physician [id number] ZAHRA PASCUAL Attending Clinician Unavailable SUSIE TAI Attending Clinician Unavailable KATHY MAHMOOD Attending Clinician Unavailable MURRAY ELISE Attending Clinician Unavailable Caty Wang Attending Clinician Unavailable Doctor Unassigned, [place] Attending Clinician Unavailable Desi Sotelo LVN Attending Clinician Babak Parsons MD Attending Clinician [phone] Ryne Yoder MD Attending Clinician Meghana Felix MD Attending Clinician RYNE YODER Attending Clinician Unavailable GOYO HANKINS Attending Clinician Unavailable DANYEL WHITESIDE Attending Clinician Unavailable Vijay Jenkins Attending Clinician Fredis ECHEVERRIA, Popeye In Attending Clinician Aida Alcala MD Attending Clinician [phone] Clifton De Luna MD Attending Clinician [phone] Debra ECHEVERRIA, Kristin Cano Attending Clinician [phone] KRISTIN SHAH Attending Clinician Unavailable Les Al MD Attending Clinician Nena Waller MD Attending Clinician Leonid Harris MD Attending Clinician CLIFTON DE LUNA Attending Clinician Unavailable Cristian ECHEVERRIA, Dayron Hogan Attending Clinician [phone] DAYRON SIFUENTES Attending Clinician Unavailable ZAIN SALAS Attending Clinician Unavailable AMANDA JOHNSTON [...] NSTEMI NSTEMI Disease Active Univers (non-ST (non-ST 9-09 ity of elevated elevated 00:00: [place] myocardial myocardial 00 Me dical infarction infarction Br anch ) ) Tubo-ovari Tubo-ovari Disease Active [facility] an abscess an abscess 5-21 Iqra kes 00:00: Medical 00 [place] Abdominal Abdominal Disease Recurre [facility] infection infection nce 5-16 [facility] s 00:00: Medical 00 [place] Pelvic Pelvic Disease Active [facility] abscess in abscess in 5-15 Iqra kes female female 00:00: Medical 00 [place] Acute Acute Disease Active 2018-[address] cholecysti cholecysti 2-03 Iqra kes tis tis 00:00: Medical 00 [place] Calculus Calculus Disease Active 2018-03 [facility] of 2-02 [facility] gallbladde gallbladde 00:00: Me dical r without r without 00 Cent er cholecysti cholecysti tis tis without without obstructio obstructio n n Transamini Transamini Disease Active 2018-[address] tis tis 04-19 [facility] 00:[facility] Medical 00 Center Hypertensi Hypertensi Disease Recurre 2018-[address] [facility] on on nce 04-19 [facility] 00:[facility] Medical 00 Center Seizure Seizure Disease Recurre 2018-[address] disorder disorder nce 04-19 [facility] 00:[facility]: Medical 00 Center Anemia Anemia Disease Active 2018-[address] 04-19 [facility] 00[facility] Medical 00 Center Thrombocyt Thrombocyt Disease Active 2018-[address] osis osis 04-19 [facility] 00:00: Medical 00 Center Allergies, Adverse Reactions, Alerts Allergy Allergy Status Severity Reaction(s) Onset Inactive Treating Comm ents Source Name Type Date Date Clinician Arnelfru Propensi Active Unknown - Uni vers it [...] 00:00: [place] reaction 00 Medical s Branch Aspirin Propensi Active Anaphylaxis 2022-0 Throat Un yoana ty to 11-24 matts; ity of adverse 00:00: breaks [place] reaction [...] 00 Medical Branch MUSHROOM DRUG Active Unknown-Cmnt 2023-0 Un yoana INGREDI 11-24 ity of 00:00: [place] 00 [facility] Branch Aspirin Drug Active Anaphylaxis 2022-0 CHI [...] NG 00 PRODUCTS Cranberr Drug Active Anaphylaxis, 2018- [facility] y Allergy Hives, 2-01 [facility] Itching 00:00: Medical 00 Center Fish Drug Active Swelling 2018- [facility] Containi Allergy 2-01 [facility] ng 00:00: Medical Products 00 Center CRANBERR Allergy Active High Anaphylaxis 2018- SL EH Y 2- 00:00: 00 FISH Allergy Active High Swelling 2018- SLSL CONTAINI 2-01 NG 00:00: PRODUCTS 00 Social History Social Habit Start Date Stop Date Quantity Comments Source Gender identity [facility] Sexual orientation Univer sity of [facility] History SDOH [facility] Alcohol Std Drinks Medica l Center History SDOH [facility] Alcohol Comment Medical C enter History SDOH [facility] Transport Non-Med Medical Center History of Social 2022-11-26 2022-11-26 Univers ity of function 00:00:00 00:00:00 [facility] Cigarettes smoked 2022-11-24 2022-11-24 Univers ity of current (pack per 00:00:00 00:00:00 ) - Reported Branch Cigarette 2022-11-24 2022-11-24 University of pack-years 00:00:00 00:00:00 [facility] Tobacco use and 2022-11-24 2022-11-24 Smokeless Universit y of exposure 00:00:00 00:00:00 tobacco non-user [facility] Alcohol intake 2022-11-24 2022-11-24 Ex-drinker University of 00:00:00 00:00:00 (finding) [facility] History of tobacco 2022-11-03 Passive smoker Un iversity of use 00:00:00 [facility] [place] [facility] Branch History SDOH 2022-08-06 2022-08-[address] [facility] Transport Med 00:00:00 00:00:[address] [facility] 2022-08-06 2022-08-[address] [facility] Housing Unable to 00:00:00 00:00:00 Medical Center Pay History [facility] 2022-08-06 2022-08-[address] [facility] Housing Places 00:00:00 00:00:00 Medical Ce nter Lived History [facility] 2022-08-06 2022-08-[address] [facility] Housing Homeless 00:00:00 00:00:00 Medical Center Last Year History [facility] 2019-02-15 2019-02-[address] [facility] Alcohol Binge 00:00:00 00:00:[address] History [facility] 2019-02-15 2019-02-[address] [facility] Alcohol Frequency 00:00:00 00:00:00 Medical Center Sex Ass[birth year] At [birth year] Universit y of 00:00:00 00:00:00 [facility] Smoking Status Start Date Stop Date Source Ex-smoker 2022-11-24 00:00:00 2022-11-[address] [place] [address] [facility] 00:00:00 Medical Branch Occasional tobacco 2022-07-30 00:00:00 [facility] smoker Center Medications Ordered Filled Start Stop Current Ordering Indication Dosage Frequency Signature Comments Components Source Medication Medication Date Date Medication? Clinician (SIG) Name Name QUEtiapine Yes 25mg Take 1 Unive rs 25 mg 9-14 tablet by ity of tablet 15:09: mouth in [place] [address] the Medical morning Branch and 1 tablet in the evening. furosemide 2022-0 Yes 20mg Take 1 Unive rs (LASIX) 20 9-14 tablet by ity of mg tablet 15:09: mouth in [place] [address] the Medical morning. Branch QUEtiapine 2022- Yes 25mg Take 1 Unive rs 25 mg 9-14 tablet by ity of tablet 15:09: mouth in [place] [address] the Medical morning Branch and 1 tablet in the evening. furosemide 2023-0 Yes 20mg Take 1 Unive rs (LASIX) 20 9-14 tablet by ity of mg tablet 15:09: mouth in [facility] 36 the Medical morning. Branch KCL 2022-0 Yes 20meq 20 mEq, Univers (KLOR-CON -14 Oral, ity of M20) tablet 14:00: DAILY, [facility] 20 mEq 00 First dose Medical on [place] Branch 11/29/22 at 0900, Until Discontinu ed, Routine QUEtiapine 2023-0 Yes 25mg Take 1 Unive rs 25 mg 9-13 tablet by ity of tablet 21:49: mouth in [place] [address] the Medical morning Branch and 1 tablet in the evening. furosemide 3-0 Yes 20mg Take 1 Unive rs (LASIX) 20 9-13 tablet by ity of mg tablet 21:49: mouth in [facility] 46 the Medical morning. Branch QUEtiapine 2022-0 Yes 25mg Take 1 Unive rs 25 mg 9-13 tablet by ity of tablet 21:49: mouth in [place] [address] the Medical morning Branch and 1 tablet in the evening. furosemide 2022-0 Yes 20mg Take 1 Unive rs (LASIX) 20 9-13 tablet by ity of mg tablet 21:49: mouth in [place] [address] the Medical morning. Branch albuterol 2022- No 2{puff} 2 Puff, U nivers (VENTOLIN) 11-28 Inhalation it y of inhaler 2 20:59: 21:00 , [place] 1 [place] Puff [place] :[place] dose, On Sat [place] 11/28/22 at 1600, Routine magnesium 2022-2022- No 4g 4 g, IV Univ ers sulfate in 11-28 Piggyback, it y of water 4 15:45: 18:49 at 25 [place] gram/50 mL 00 :00 mL/hr Medical (8 %) IV Administer Branc h Piggyback 4 over 120 g Minutes, ONCE, 1 dose, On Sat11/28/22 at 1045, Routine atorvastati 2022-2022- No 40mg Take 1 Uni vers n 40 mg 11-28 tablet by ity of tablet 10:17: 00:00 mouth at [place] 14 :00 bedtime. Medical Branch amLODIPine 2022-2022- No 10mg Take 1 Univ ers 10 mg 11-28 tablet by ity of tablet 10:12: 00:00 mouth in [place] 07 :00 the Medical morning. Branch NIFEdipine 2022-2022- No 60mg Take 1 Univ ers ER 60 mg 11-28 tablet by ity o f tablet 10:12: 00:00 mouth in [place] 04 :00 the Medical morning. Branch metoprolol 2022-0 2022- No 50mg Take 1 Univ ers tartrate 11-28 tablet by ity o f (LOPRESSOR) 10:12: 00:00 [place] 50 mg 04 :00 the Medical tablet morning Branch and 1 tablet in the evening. amLODIPine 2022-0 Yes [id number] 2.5mg Take 1 Univers 2.5 mg 9-13 tablet by ity of tablet 00:00: mouth in [place] 00 the Medical morning. Branch metoprolol 2022-0 Yes [id number] 12.5mg Take 0.5 Univers tartrate 25 9-13 tablets by it y of mg tablet 00:00: [facility] Branch and 0.5 tablets in the evening. atorvastati 2022-0 Yes [id number] 40mg Take 1 Univers n 40 mg 9-13 tablet by ity of tablet 00:00: mouth at [place] 00 bedtime. Medical Branch amLODIPine 2022-0 Yes [id number] 2.5mg Take 1 Univers 2.5 mg 9-13 tablet by ity of tablet 00:00: mouth in [place] 00 the Medical morning. Branch metoprolol 2022-0 Yes [id number] 12.5mg Take 0.5 Univers tartrate 25 9-13 tablets by it y of mg tablet 00:00: [place] the Medical morning Branch and 0.5 tablets in the evening. atorvastati 2022-0 Yes [id number] 40mg Take 1 Univers n 40 mg 9-13 tablet by ity of tablet 00:00: mouth at [place] 00 bedtime. Medical Branch amLODIPine 2022-0 Yes [id number] 2.5mg Take 1 Univers 2.5 mg 9-13 tablet by ity of tablet 00:00: mouth in [place] 00 the Medical morning. Branch metoprolol 2022-0 Yes [id number] 12.5mg Take 0.5 Univers tartrate 25 9-13 tablets by it y of mg tablet 00:00: [place] 00 the Medical morning Branch and 0.5 tablets in the evening. atorvastati Yes [id number] 40mg Take 1 Univers n 40 mg 9-13 tablet by ity of tablet 00:00: mouth at [place] 00 bedtime. Medical Branch amLODIPine 0 Yes [id number] 2.5mg Take 1 Univers 2.5 mg 9-13 tablet by ity of tablet 00:00: mouth in [place] 00 the Medical morning. Branch metoprolol Yes [id number] 12.5mg Take 0.5 Univers tartrate 25 9-13 tablets by it y of mg tablet 00:00: [place] 00 the Medical morning Branch and 0.5 tablets in the evening. atorvastati Yes [id number] 40mg Take 1 Univers n 40 mg 9-13 tablet by ity of tablet 00:00: mouth at [place] 00 bedtime. Medical Branch HYDROcodone Yes 1{tbl} 1 tablet, Univers -acetaminop 11-27 Oral, ity of hen (NORCO 21:16: Q6HPRN, [place] 5) 5-325 mg 22 Starting Medi wale tablet 1 on [facility] tablet 11/27/22 at 1616, Until Discontinu ed, Routine, Pain (scale 4-6) acetaminoph Yes 650mg 650 mg, Un yoana en 11-27 Oral, ity of (TYLENOL) 21:12: Q6HPRN, [place] tablet 650 39 Starting Medic al mg on Tue Branch 11/27/22 at 1612, Until Discontinu ed, Routine, Pain (scale 1-3) nitroglycer 2022- No [id number] .8mg 0.8 mg, Univers in 11-27 Sublingual ity of (NITROSTAT) 20:15: 19:15 , ONCE, 1 [place] sublingual 00 :00 dose, On Medic al tablet 0.8 e Branch mg 11/27/22 at 1515, KASSIDY iopamidol 0 2022- No [id number] 80mL 80 mL, U nivers (ISOVUE 11-27 [...] ity of (TYLENOL 18:45: 18:50 ONCE, 1 [place] #3) 300-30 00 :00 dose, On Medic al mg tablet 1 [facility] tablet 11/26/22 at 1345, Routine metoprolol Yes 12.5mg 12.5 mg, U nivers tartrate 11-26 Oral, BID, ity o f (LOPRESSOR) 13:00: First dose [place] tablet 12.5 00 on Mon Medica l mg 11/26/22 at Branch 0800, Until Discontinu ed, Routine perflutren 2022- No [id number] 3mL 3 mL, IV Univers protein-A 11-25 Push, ity of microsphr 15:00: 15:00 ONCE, 1 [place] (OPTISON) 00 :00 dose, On Medica l injection 3 Sun Branch mL 11/25/22 at 1000, Routine pantoprazol Yes 40mg 40 mg, Univ ers e 11-25 Oral, ity of (PROTONIX) 14:00: DAILY, [place] EC tablet 00 First dose Medi wale 40 mg on [place] Branch 11/25/22 at 0900, Until Discontinu ed, Routine clopidogreL 2022-2022- No 75mg 75 mg, Uni vers (PLAVIX) 75 11-25 Oral, ity of mg tablet 14:00: 14:47 DAILY, [place] 75 mg 00 :08 First dose Medical on [place] Branch 11/25/22 at 0900, Until Discontinu ed, Routine magnesium 2022- No 4g 4 g, IV Univ ers sulfate in 11-25 Piggyback, it y of water 4 04:15: 07:19 at 25 [place] gram/50 mL 00 :00 mL/hr Medical (8 %) IV Administer Branc h Piggyback 4 over 120 g Minutes, ONCE, 1 dose, On [facility] 11/24/22 at 2315, Routine atorvastati 3-0 Yes 40mg 40 mg, Univ ers n (LIPITOR) 11-25 Oral, QHS, it y of tablet 40 02:00: First dose [place] mg 00 on [facility] Medical 11/24/22 at Branch 2100, Until Discontinu ed, Routine lactated 2023-0 2023- No 500mL at [address] [facility] 11-2411 mL/hr, 500 it y of infusion 23:00: 12:43 mL, [place] 500 mL 00 :00 Intravenou Medical s, ONCE, 1 Branch dose, On [facility] 11/24/22 at 1800, Routine lactated 2023-0 2023- No 500mL at 125 Unive rs ringers IV 11-2411 mL/hr, 500 it y of infusion 21:11: 12:43 mL, [place] 500 mL 00 :00 Intravenou Medical s, ONCE, 1 Branch dose, On [facility] 11/24/22 at 1615, Routine ipratropium 2022-0 Yes 3mL 3 mL, [facility] -albuteroL 11-24 Inhalation ity of (DUONEB) 19:48: , QIDPRN, [place] 0.5 mg-3 04 Starting Medical mg(2.5 mg on [facility] Branch base)/3 mL 11/24/22 at nebulizer 1448, solution 3 Until mL Discontinu ed, Routine, Wheezing lactated 3-0 2023- No 500mL at [address] [facility] ringers IV 11-2411 mL/hr, 500 it y of infusion 17:45: 12:43 mL, [place] 500 mL 00 :00 Intravenou Medical s, ONCE, 1 Branch dose, On [facility] 11/24/22 at 1245, Routine nitroglycer 3-0 Yes [...] e, Dosing and Testing: &nbs p;FOR [facility] ONLY &nbs p; [...] by mouth Center in the morning. NIFEdipine 2023-0 Yes 60mg QD Take 1 [facility]I S t (PROCARDIA- 5-27 tablet (60 Iqra kes XL) 60 MG 00:00: mg total) Med ical (OSM) 24 hr 00 by mouth Cent er tablet in the morning. metoprolol 3-0 Yes 50mg Q.5D Take 1 [facility] S [...] :00 by mouth Center nightly. doxycycline 3-0 2022- No 100mg Q.5D Take 1 CH [...] this for 7 days. . NIFEdipine 3-0 202- No 60mg QD Take [address] [...] mouth Center nightly. metroNIDAZO 2022- No 500mg Q.[id number] Take [address] LE (FLAGYL) 08-03 05-27 [id number] tablet [facility] 500 MG 00:00: 00:00 3D [...] capsule (100 mg total) before bedtime. divalproex No epilepsy 125mg QD Take [address] (DEPAKOTE) 5-15 05-15 mg by [facility]ukes 125 MG EC 14:52: 00:00 mouth Medica l tablet 09 :00 daily. [place] divalproex 2018-03 Yes epilepsy 125mg QD Take [address] (DEPAKOTE) 2-04 mg by [facility]ukes 125 MG EC 10:36: mouth Medical tablet 04 daily. [place] divalproex 2018-03 Yes epilepsy 125mg QD Take [address] (DEPAKOTE) 2-04 mg by Lukes 125 MG EC 10:36: mouth Medical tablet 04 daily. [place] divalproex 2018-03 Yes epilepsy 125mg QD Take [address] (DEPAKOTE) 2-04 mg by [facility]ukes 125 MG EC 10:36: mouth Medical tablet 04 daily. [place] famotidine 2018-03 Yes 1{tbl} Take 1 CHI [...] Source Respiratory rate 2022-11-29 01:59:00 18 /min [facility] Oxygen saturation in 2022-11-29 01:59:00 93 /min [facility] Arterial blood by [facility] [place] [facility] Pulse oximetry Branch Systolic blood 2022-11-29 01:23:00 126 mm[Hg] [facility] Diastolic blood 2022-11-29 01:23:00 75 mm[Hg] [facility] Heart rate 2022-11-29 01:23:00 72 /min [facility] Body temperature 2022-11-29 01:23:00 36.94 N[facility]omi [facility] Body weight 2022-11-28 05:16:00 70.421 kg [facility] BMI 2022-11-28 05:16:00 28.40 kg/m2 [facility] Body height 2022-11-24 16:52:00 157.5 cm [facility] WEIGHT 2022-11-12 07:05:00 74.6 kg WEIGHT [...] Heart rate 2022-08-11 12:33:33 76 /min [facility] Respiratory rate 2022-08-11 12:33:33 18 /min [facility] Oxygen saturation in 2022-08-11 12:33:33 97 /min [facility] Arterial blood by Medical Ce nter Pulse oximetry Body temperature 2022-08-11 12:33:11 36.56 Nahomi [facility] Systolic blood 2022-08-11 12:32:45 129 mm[Hg] [facility] Diastolic blood 2022-08-11 12:32:45 80 mm[Hg] [facility] Body height 2022-08-05 19:35:00 157.5 cm [facility] Body weight 2022-08-05 19:35:00 58.968 kg [facility] BMI 2022-08-05 19:35:00 23.78 kg/m2 [facility] Procedures Procedure Date / Time Performing Clinician Source Performed REFERRAL- 2023-01-24 06:01:00 Doctor Unassigned, No [facility] REQUEST/RESPONSE Name Medical Branch MAGNESIUM 2022-11-28 09:22:00 Casi Maddox [facility] BASIC METABOLIC PANEL 2022-11-28 09:22:00 Casi Maddox [facility] (NA, K, CL, CO2, Medical Branch GLUCOSE, BUN, CREATININE, CA) CBC WITH DIFF 2022-11-28 09:22:00 Casi Maddox [facility] CT ANGIOGRAPHY 2022-11-27 19:24:21 Tori Hanna [facility] CORONARIES WITH CARDIAC [facility] CALCIUM SCORE CT HEAD WO CONTRAST 2022-11-27 17:24:05 Milagros Choe [facility] CBC WITHOUT DIFF 2022-11-27 09:15:00 Joel Willis [facility] MAGNESIUM 2022-11-26 09:21:00 Paul [facility] HEPATIC FUNCTION PANEL 2022-11-26 09:21:00 Joel Willis [facility] ([id number]) (ALB,T.PRO,BILI Medical Branch T,BU/BC,ALT,AST,ALK PHOS) BASIC METABOLIC PANEL 2022-11-26 09:21:00 Paul Paul [facility] (NA, K, CL, CO2, Medical Branch GLUCOSE, BUN, CREATININE, CA) CBC WITH DIFF 2022-11-26 09:21:00 Paul [facility] ACTIVATED PARTIAL 2022-11-25 22:48:00 Lazaro [facility] EKG-12 LEAD 2022-11-25 17[facility]52[facility] 2022-11-25 17:51:00 Philip Chris Located within [facility] HB ECG ROUTINE & RHYTHM 2022-11-25 17:39:36 Joel Willis [facility] ACTIVATED PARTIAL 2022-11-25 15:42:00 Lazaro [facility] TRANSTHORACIC ECHO (TTE) 2022-11-25 14:57:34 Joel Willis [facility] COMPLETE W/ CONTRAST Medical [facility] MAGNESIUM 2022-11-25 09:20:00 Joel Willis [facility] BASIC METABOLIC PANEL 2022-11-25 09:20:00 Joel Willis [facility] (NA, K, CL, CO2, Medical Branch GLUCOSE, BUN, CREATININE, CA) URINE DRUG (IMMUNOASSAY) 2022-11-25 07:32:00 Joel Willis [facility] - COMPREHENSIVE DRUG Medical [facility] SCREEN GC & CHLAMYDIA AMPLIFIED 2022-11-25 07:32:00 Joel Willis [facility] ASSAY [facility] URINE DRUG (LCMSMS) - 2022-11-25 07:32:00 Joel Willis [facility] SYNTHETIC OPIATES PANEL Medical Branch CBC WITHOUT DIFF 2022-11-25 07:31:00 Lazaro [facility] ACTIVATED PARTIAL 2022-11-25 07:31:00 Lazaro [facility] URINALYSIS 2022-11-25 07:31:00 Lazaro [facility] MAGNESIUM 2022-11-25 01:31:00 [facility] BASIC METABOLIC PANEL 2022-11-25 01:31:00 [facility] (NA, K, CL, CO2, Medical Branch GLUCOSE, BUN, CREATININE, CA) ACTIVATED PARTIAL 2022-11-25 01:31:00 Lazaro [facility] TROPONIN I 2022-11-24 23:01:00 [facility] BLOOD CULTURE SCREEN 2022-11-24 22:57:00 Lazaro [facility] XR CHEST 1 VW 2022-11-24 21:30:59 L[facility]aro [facility] US ABDOMEN LIMITED 2022-11-24 21:30:31 Lazaro [facility] XR CHEST 1 VW 2022-11-24 20:37:[address] [facility] [address] HEAD WO CONTRAST 2022-11-24 18:42:54 Lazaro [facility] ACTIVATED PARTIAL 2022-11-24 17:43:00 Lazaro [facility] CBC WITH DIFF 2022-11-24 16:39:00 [facility] MRSA / MSSA SCREEN BY 2022-11-24 16:39:00 Lazaro [facility] PCR, NARES [facility] TROPONIN I 2022-11-24 16:34:00 [facility] THYROID STIMULATING 2022-11-24 16:34:00 Lazaro [facility] HORMONE [facility] Branch HEPATIC FUNCTION PANEL 2022-11-24 16:34:00 Lazaro [facility] ([id number]) (ALB,T.PRO,BILI Medical Branch T,BU/BC,ALT,AST,ALK PHOS) BASIC METABOLIC PANEL 2022-11-24 16:34:00 Joel Willis [facility] (NA, K, CL, CO2, Medical Branch GLUCOSE, BUN, CREATININE, CA) LIPID PANEL 2022-11-24 16:34:00 Lazaro [facility] ([id number])(TOTAL Medical Branch CHOLESTEROL, TRIGLYCERIDES, HDL) GLYCOSYLATED HEMOGLOBIN 2022-11-24 16:34:00 Lazaro [facility] (A1C) [facility] PROTHROMBIN TIME / INR 2022-11-24 16:34:00 Joel Willis [facility] HEPATITIS B SURFACE 2022-11-24 16:34:00 Lazaro [facility] ANTIBODY [facility] HEPATITIS B SURFACE 2022-11-24 16:34:00 Lazaro [facility] ANTIGEN [facility] HCV ANTIBODY 2022-11-24 16:34:00 Lazaro [facility] HEPATITIS A VIRUS 2022-11-24 16:34:00 Lazaro [facility] ANTIBODY IGM [facility] N-TERMINAL PRO-BNP 2022-11-24 16:34:00 Lazaro [facility] HIV 1/2 AG-AB WITH 2022-11-24 16:34:00 Lazaro [facility] REFLEX [facility] EKG-12 LEAD 2022-11-24 16:22:20 [facility] BASIC METABOLIC PANEL 2022-08-11 04:41:00 [facility] MAGNESIUM 2022-08-11 04:41:00 Kristin Shah [facility] CALCIUM, IONIZED 2022-08-11 04:41:00 Federico Hua [facility] PHOSPHORUS 2022-08-11 04:41:00 [facility] W/[facility] & AUTO 2022-08-11 04:41:00 [facility] DIFFERENTIAL [place] CBC W/PLT COUNT & AUTO 2022-08-11 04:41:[address] [facility] [place] BASIC METABOLIC PANEL 2022-08-10 16:09:00 Federico Hua [facility] SODIUM, RANDOM URINE 2022-08-10 09:33:00 [facility] UREA NITROGEN, RANDOM 2022-08-10 09:33:00 [facility] CREATININE, RANDOM URINE 2022-08-10 09:33:00 [facility] OSMOLALITY, URINE 2022-08-10 09:33:00 [facility] TSH/FREE T4 IF INDICATED 2022-08-10 09:33:00 [facility] CORTISOL 2022-08-10 09:33:00 [facility] OSMOLALITY, SERUM 2022-08-10 09:33:00 [facility] T4, FREE 2022-08-10 09:33:00 [facility] CBC (HEMOGRAM ONLY) 2022-08-10 05:06:00 [facility] BASIC METABOLIC PANEL 2022-08-10 05:06:00 [facility] MAGNESIUM 2022-08-10 05:06:00 [facility] CBC (HEMOGRAM ONLY) 2022-08-09 03:38:00 [facility] BASIC METABOLIC PANEL 2022-08-09 03:38:00 [facility] MAGNESIUM 2022-08-09 03:38:00 [facility] CBC (HEMOGRAM ONLY) 2022-08-08 04:25:00 [facility] BASIC METABOLIC PANEL 2022-08-08 04:25:00 [facility] B-TYPE NATRIURETIC 2022-08-08 04:25:00 [facility] FACTOR (BNP) [facility] STD PANEL - CT/GC RNA 2022-08-07 16:52:00 [facility] FUNGUS CULTURE + SMEAR 2022-08-07 10:22:00 Aida Alcala CH I [facility] ANAEROBIC CULTURE 2022-08-07 10:22[facility]00 [facility]AM 2022-08-07 10:22:00 [facility] STAIN [facility] RADIOLOGIC GUIDANCE & 2022-08-07 10:20:00 Fredrick [facility] INTERP/SPEC [facility] BASIC METABOLIC PANEL 2022-08-07 03:42:00 [facility] CBC (HEMOGRAM ONLY) 2022-08-07 03:41:00 [facility] CT ABDOMEN/PELVIS WITH 2022-08-06 00:22:00 Dontae Alcalaer CH I [facility] IV CONTRAST [facility] SCREEN, URINE 2022-08-05 21:06:00 OnRonla day [facility] CBC W/PLT COUNT & AUTO 2022-08-05 20:40:00 Aida Alcala CH I [facility] DIFFERENTIAL [facility] BASIC METABOLIC PANEL 2022-08-05 20:40:00 Dontae Alcalaer [facility] PROTHROMBIN TIME/INR 2022-08-05 20:40:00 [facility]athan [facility] TYPE AND SCREEN, 2022-08-05 20:40:00 Fredrick [facility] AUTOMATED [facility] CBC W/PLT COUNT & AUTO 2022-08-05 20:40:00 Dontae Alcalaer CH I [facility] DIFFERENTIAL [facility] (CELLAVISION MANUAL 2022-08-05 20:40:00 [facility]FF) [facility] TRANSTHORACIC ECHO FOR 2022-08-03 13:59:39 Unknown, Hl7 Doctor Mendo[facility] Center BASIC METABOLIC PANEL 2022-08-03 04:31:00 [facility] CBC (HEMOGRAM ONLY) 2022-08-03 04:31:00 [facility] CBC W/PLT COUNT & AUTO 2022-08-02 13:09:00 [facility] BASIC METABOLIC PANEL 2022-08-02 13:09:[address] [facility] CBC W/PLT COUNT & AUTO 2022-08-02 13:09:00 [facility] (CELLAVISION MANUAL 2022-08-02 13:09:00 [facility]) [place] MYOCARDIAL PERFUSION 2022-08-01 13:31:00 Judy Barros [facility] SPECT, PHARM [facility] TREADMILL 2022-08-01 11:39:56 Unknown, Hl7 [facility](NON-NUCLEAR Center TREADMILL) ECG 12-LEAD 2022-08-01 10:14:26 Unknown, Hl7 [facility] ECG 12-LEAD 2022-08-01 10:14:26 Unknown, 7 [facility] ECG 12-LEAD 2022-08-01 10:13:38 Unknown, 7 [facility] ECG 12-LEAD 2022-08-01 10:13:38 Unknown, 7 [facility] CBC W/PLT COUNT & AUTO 2022-08-01 04:47:00 Leonid Harris [facility] BASIC METABOLIC PANEL 2022-08-01 04:47:00 Leonid Harris [facility] MAGNESIUM 2022-08-01 04:47:00 Leonid Harris [facility] PHOSPHORUS 2022-08-01 04:47:00 Leonid Harris [facility] HEMOGLOBIN A1C 2022-08-01 04:47:00 [facility] PT/APTT 2022-08-01 04:47:00 [facility] HCG, QUANTITATIVE, 2022-08-01 04:47:00 [facility] TYPE AND SCREEN, 2022-08-01 04:47:00 Leonid Harris [facility] AUTOMATED Center CBC W/PLT COUNT & AUTO 2022-08-01 04:47:00 [facility] (CELLAVISION MANUAL 2022-08-01 04:47:00 Leonid Harris [facility] DIFF) Center 2D ECHO W/ DOPPLER 2022-07-31 15:20:04 [facility] (CW/PW/COLOR) [facility] ECG 12-LEAD 2022-07-31 15:01:36 [facility] ECG 12-LEAD 2022-07-31 15:01:36 Unknown, Hl7 [facility] ENDOVAGINAL EV 2022-07-31 12:52:00 [facility] US PELVIS 2022-07-31 12:52:00 [facility] US DOPPLER 2022-07-31 12:52:00 [facility] BASIC METABOLIC PANEL 2022-07-31 03:09:00 [facility] MAGNESIUM 2022-07-31 03:09:00 [facility] PHOS[facility]US 2022-07-31 03:09:00 [facility] CBC W/PLT COUNT & AUTO 2022-07-31 03:09:00 [facility] DIFFERENTIAL Center LIPID PANEL 2022-07-31 03:09:00 [facility] CBC W/PLT COUNT & AUTO 2022-07-31 03:09:00 Dewayne Reilly Pis [facility] Medical DIFFERENTIAL An Center XR CHEST 1 VIEW PORTABLE 2022-07-30 16:42:00 Dewayne Reilly P is [facility] / BEDSIDE An Center CBC W/PLT COUNT & AUTO 2022-07-30 15:38:00 [facility] [place] [facility] DIFFERENTIAL An Center BASIC METABOLIC PANEL 2022-07-30 15:38:00 [facility] [place] Pis [facility] An Center PROTHROMBIN TIME/INR 2022-07-30 15:38:00 [facility] Pis C HI [facility] An Center MAGNESIUM 2022-07-30 15:38:00 [facility] [place] [facility] An Center CBC W/PLT COUNT & AUTO 2022-07-30 15:38:00 LianeиринаDayron [facility] S [facility] Medical DIFFERENTIAL [facility] Plan of Care Planned Activity Planned Date Details Comments Source Future Scheduled 2025-07-31 Lipid panel (procedure) [facility] Test 00:00:00 [code = 95821842] Medical Ce nter Future Scheduled 2022-11-16 Influenza [...] [facility] Test 00:00:00 [code = 26035162] Medical Ce nter Future Scheduled 2021-03-18 DEPRESSION [...] cervix Medical C enter (procedure) [code = 037430024] Future Scheduled 1997 Screening for malignant [facility] Test 00:00:00 neoplasm of cervix Medical C enter (procedure) [code = 371753909] Future Scheduled 1995 DTAP/TDAP/TD VACCINES (1 [facility]I [...] screening Medical Cent er (procedure) [code = 333730257] Future Scheduled [address] [facility] Test 00:00:00 Counseling and Screening [facility] Center (12+) [code = Tobacco Cessation Counseling [...] Lukes Test 00:00:00 [code = COVID-19 VACCINE [facility] ical Center (#1)] Future Scheduled 1976 COVID-19 VACCINE (#1) [facility]00 [code = COVID-19 VACCINE Med ical Center (#1)] Future Scheduled 1976 CT Colonography (combo) [facility] Test 00:00:00 [code = CT Colonography [facility] (combo)] Future Scheduled 1976 Screening for malignant [facility] Test 00:00:00 neoplasm of colon Medical Ce nter (procedure) [code = 623066941] Future Scheduled 1976 Screening for malignant [facility] Test 00:00:00 neoplasm of colon Medical Ce nter (procedure) [code = 369820609] Future Scheduled 1976 Screening for malignant [facility] Test 00:00:00 neoplasm of colon Medical Ce nter (procedure) [code = 898494977] Future Scheduled 1976 Screening for malignant [facility] Test 00:00:00 neoplasm of colon Medical Ce nter (procedure) [code = 452281942] Future Scheduled 1976 Sigmoidoscopy [code = [facility] S[facility]oidoscopy] Medical Cente r Future Scheduled 1976 CT Colonography (combo) [facility] Test 00:00:00 [code = CT Colonography [facility] (combo)] Future Scheduled 1976 Screening for malignant [facility] Test 00:00:00 neoplasm of colon Medical Ce nter (procedure) [code = 661736499] Future Scheduled 1976 Screening for malignant [facility] Test 00:00:00 neoplasm of colon Medical Ce nter (procedure) [code = 052831015] Future Scheduled 1976 Screening for malignant [facility] Test 00:00:00 neoplasm of colon Medical Ce nter (procedure) [code = 705136556] Future Scheduled 1976 Screening for malignant [facility] Test 00:00:00 neoplasm of colon Medical Ce nter (procedure) [code = 794942700] Future Scheduled 1976 Sigmoidoscopy [code = [facility] S[facility]oscopy] Medical Cente r Encounters Start End Encounter Admission Attending Care Care Encounter Source Date/Time Date/Time Type Type Clinicians Facility Department ID 2022-11-07 Inpatient ER ZAHRA PASCUAL [facility] [id number] [facility] 19:39:43 2022-11-06 Inpatient ER SUSIE TAI [facility] [id number] [facility] 11:21:11 2022-11-06 Inpatient ER SUSIE TAI [facility] [id number] [facility]H 10:39:32 2022-11-05 Inpatient ER SUSIE TAI [facility] [id number] [facility]H 13:31:19 2022-11-03 Inpatient ER SUSIE TAI [facility] [id number] SLEH 10:45:25 2022-11-01 Inpatient ER SLEH SLEH [id number] [facility]H 09:28:17 2022-11-01 Inpatient ER SLEH SLEH [id number] [facility]H 09:11:47 2022-10-31 Inpatient ER BERSHAD, SLEH [facility] [id number] [facility]H 00:51:03 KATHY 2022-10-31 Inpatient ER BERSHAD, SLEH [facility] [id number] [facility]H 00:50:54 KATHY 2022-10-30 Inpatient ER SLEH SLEH [id number] SLEH 15:54:13 2022-10-30 Inpatient ER BERSHAD, SLEH [facility]H [id number] SLEH 09:14:25 KATHY 2022-10-30 Inpatient ER BERSHAD, SLEH SLEH [id number] SLEH 05:26:11 KATHY 2022-10-29 Inpatient ER BERSHAD, SLEH SLEH [id number] SLEH 17:09:25 KATHY 2022-10-29 Inpatient ER PITTARD, SLEH SLEH [id number] SLEH 03:50:03 MURRAY 2023-01-31 2023-01-31 Outpatient [facility] [id number] Martin 15:10:33 15:10:33 1116 F Tello 2023-01-29 2023-01-29 Robby Wang [facility] 1.2.840.114 [id number] Univers 00:00:00 00:00:00 (Out) Cardiology HEALTH 350.1.13.10 ity of - Clear CLEAR 4.2.7.2.686 David iam WANG [phone] [place] [address] Branch OFFICE [facility] 2023-01-24 2023-01-24 Orders Doctor YAIMA 1.2.840.114 [id number] Univers 00:00:00 00:00:00 Only Unassigned, VLAD 350.1.13.10 ity of [facility] 4.2.7.2.686 Anthony as [id number] [facility] [address] 2023-01-22 2023-01-22 Outpatient SFA SFA [id number] Martin 08:26:51 08:26:51 1107 F Tello 2022-12-27 2022-12-27 Outpatient S[facility] [id number] Martin 10:33:43 10:33:43 1012 F [place] 2022-11-29 2022-11-29 Transition TRENT SoteloGeorge 1.2.840.114 [id number] Univers 00:00:00 00:00:00 of Care Desi REDDY 350.1.13.10 ity of [place] [phone] [facility] [address] 2022-11-24 2022-11-28 [facility] [place] 1.2.840.114 [id number] [facility] 11:15:00 21:45:00 Encounter Ryne Yoder 350.1.13.1 0 ity of [facility] 4.2.7.2.686 [place] [id number] [facility] [address] 2022-11-24 2022-11-28 [facility] [id number] Univers 11:15:00 21:45:00 JINNYLIZETH akbarcandice [facility] 2022-11-24 2022-11-28 Inpatient U [facility] [id number] Univers 11:15:00 21:45:00 JINNYLIZETH ity [facility] 2022-10-29 2022-11-13 Inpatient ER [facility] Neurology [id number] SLE 02:56:00 21:30:00 GOYO 2022-11-06 2022-11-06 Inpatient ER [facility] [id number] SLEH 08:32:27 00:00:00 2022-11-05 2022-11-05 [facility] [id number] [facility] 00:00:00 00:00:00 2022-11-05 2022-11-05 Outpatient SLE SLE [id number] SLEH 00:00:00 00:00:00 2022-11-02 2022-11-02 Inpatient ER SUSIE TAI SLE SLEH [id number] SLEH 10:58:08 00:00:00 2022-10-29 2022-10-29 Inpatient ER PITTARD, SLEH SLE [id number] SLEH 10:12:32 23:59:00 MURRAY 2022-10-29 2022-10-29 Inpatient ER PITTARD, SLEH SLEH [id number] SLEH 10:12:49 00:00:00 MURRAY 2022-10-29 2022-10-29 Inpatient ER PITTARD, SLE SLE [id number] SLEH 10:12:41 00:00:00 [facility] 2022-08-12 2022-08-12 Telephone Gregory [facility] [id number] 00:00:00 00:00:00 [facility] 2022-08-05 2022-08-11 Hospital ER SoniaPopeye Adams In [facility] [id number] 18:09:00 14:47:00 Encounter Aida Alcala [facility] Kristin Shah [place] 2022-08-05 2022-08-11 Inpatient ER [facility] Gynecology [id number] SLE 18:09:00 14:47:00 KRISTIN 2022-08-05 2022-08-05 Travel [facility] [id number] [facility] 00:[facility] 00:00:00 [facility] 2022-07-31 2022-08-03 Hospital UR Les Al [facility] [id number] 04:37:00 20:00:00 Encounter [facility] Leonid Harris [place] 2022-07-31 2022-08-03 Inpatient UR ANNAMARIE [facility] General Med [id number] SLE 04:37:00 20:00:00 [facility] 20[facility]-302022-07-31 Hospital ER Cristian, [facility] [id number] 14:07:00 04:04:00 Encounter Dayron vitale [facility] 2022-07-30 2022-07-31 Inpatient ER CRISTIAN, [facility] [id number] [facility] 14:07:00 04:04:00 DAYRON 2022-07-31 2022-07-31 Orders [facility] [id number] 00:00:00 00:00:00 Only [facility] 2022-07-30 2022-07-30 Travel [facility] [id number] [facility] 00:[facility]:00 00:00:00 [facility] Results Test Description Test Time Test Comments Results Result Comments Source HEPATIC FUNCTION PANEL (06982) (ALB,T.PRO,BILI 2022-11-26 13 :08:17 T,BU/BC,ALT,AST,ALK PHOS) Test Item Value Reference Range Interpretation Comme nts TOTAL BILI (test code = 4792083872) 0.9 mg/dL 0.1-1.1 BILI UNCON (test code = 6473223476) 0.6 mg/dL 0.1-1.1 BILI CONJ (test code = 4510188445) 0.0 mg/dL 0.0-0.3 T PROTEIN (test code = 5325898399) 6.5 g/dL 6.3-8.2 ALBUMIN (test code = 7366817851) 4.0 g/dL 3.5-5.0 ALK PHOS (test code = 8567006527) 527 U/L 34-122 H ALTv (test code = 1742-6) 116 U/L 5-35 H AST(SGOT) (test code = 8098162689) 76 U/L 13-40 H Lab Interpretation (test code = 48470-0) Abnormal [facility] METABOLIC PANEL (NA, K, CL, CO2, GLUCOSE, BUN, CREATININE, CA)2022-11-26 10:08:01 Test Item Value Reference Range Interpretation Comments NA (test code = 136 mmol/L 135-145 8199219470) K (test code = 4.1 mmol/L 3.5-5.0 9298066377) CL (test code = 100 mmol/L 98-108 4842141306) CO2 TOTAL (test code 28 mmol/L 23-31 = 8709873793) AGAP (test code = 8 2-16 1253458775) BUN (test code = 17 mg/dL 7-23 6451845098) GLUCOSE (test code = 87 mg/dL 70-110 1340948268) CREATININE (test code 1.00 mg/dL 0.50-1.04 = 3326827561) CALCIUM (test code = 9.3 mg/dL 8.6-10.6 1739856587) eGFR (test code = 59.7 mL/min/1.73m2 5129335330) SUE (test code = SUE) Association of [...] or urine or abnormalities in imaging tests). [facility] 10:08:01 Test Item Value Reference Range Interpretation Comments MAGNESIUM (test code = 3210355589) 1.8 mg/dL 1.7-2.4 Lab Interpretation (test code = Normal 66783-3) [facility] WITH [id number] 09:36:22 Test Item Value Reference Range Interpretation Comments WBC (test code = 4.18 See_Comment L [Automated 6690-2) message] The sy stem which generated this result transmitted reference range : 4.30 - 11.10 10*3/?L. The reference range was not used to interpret this result as normal/abnormal . RBC (test code = 3.39 See_Comment L [Automated 789-8) message] The sy stem which generated this [...] RDW-SD (test code = 42.7 fL 39.0-49.9 48881-4) RDW-CV (test code = 12.5 % 12.0-15.5 788-0) PLT (test code = 151 See_Comment L [Automated 777-3) message] The sy stem which generated this result transmitted reference range : 166 - 358 10*3/ ?L. The reference r elizabeth was not used to interpret this result as normal/abnormal . MPV (test code = 9.4 fL 9.5-12.9 L 40585-4) NRBC/100 WBC (test 0.0 See_Comment [Automat ed code = 5123078348) message] The system which generated this result transmitted reference range : 0.0 - 10.0 /100 WBCs. The refer ence range was not u sed to interpret th is result as normal/abnormal . NRBC x10^3 (test code See_Comment [Auto mated = 5466651894) message] The s ystem which generated this result transmitted reference range : 10*3/?L. The reference range was not used to interpret this result as normal/abnormal . GRAN MAT (NEUT) % 68.0 % (test code = 770-8) IMM GRAN % (test code 0.00 % = 9209218935) LYMPH % (test code = 17.7 % 736-9) MONO % (test code = 9.1 % 5905-5) EOS % (test code = 4.5 % 713-8) BASO % (test code = 0.7 % 706-2) GRAN MAT x10^3(ANC) 2.84 10*3/uL 1.88-7.09 (test code = 3404403967) IMM GRAN x10^3 (test 0.00-0.06 code = 9547633200) LYMPH x10^3 (test code 0.74 10*3/uL 1.32-3.29 L = 731-0) MONO x10^3 (test code 0.38 10*3/uL 0.33-0.92 = 742-7) EOS x10^3 (test code = 0.19 10*3/uL 0.03-0.39 711-2) BASO x10^3 (test code 0.03 10*3/uL 0.01-0.07 = 704-7) Lab Interpretation Abnormal (test code = 47244-0) [facility] METABOLIC PANEL (NA, K, CL, CO2, GLUCOSE, BUN, CREATININE, CA)2022-11-25 09:47:18 Test Item Value Reference Range Interpretation Comments NA (test code = 135 mmol/L 135-145 4880748820) K (test code = 5.0 mmol/L 3.5-5.0 Slight 8300147852) hemolysis CL (test code = 100 mmol/L 98-108 0595222033) CO2 TOTAL (test code 28 mmol/L 23-31 = 4741214529) AGAP (test code = 7 2-16 8999702843) BUN (test code = 20 mg/dL 7-23 Slight 7660566735) hemolysis GLUCOSE (test code = 109 mg/dL 70-110 3536499373) CREATININE (test code 1.20 mg/dL 0.50-1.04 H = 6882961933) CALCIUM (test code = 9.2 mg/dL 8.6-10.6 2571139035) eGFR (test code = 48.4 mL/min/1.73m2 5444618980) SUE (test code = SUE) Association of [...] tests). Lab Interpretation Abnormal (test code = 55338-7) [facility] 09:42:55 Test Item Value Reference Range Interpretation Comments MAGNESIUM (test code = 8408820662) 3.1 mg/dL 1.7-2.4 H Lab Interpretation (test code = Abnormal 69965-9) [facility]AT[facility]IS A VIRUS ANTIBODY [id number] 23:52:42 Test Item Value Reference Range Interpretation Comments HAVM 0.05 Semi-Quantitative (test code = 02050-7) SUE (test code = HAVAb IgM Interpretative SUE) Information: Reactive greater than or equal to 1.2 Biotin has been reported to cause a negative bias, interpret results relative to patient's use of biotin. [facility] [id number] 23:35:43 Test Item Value Reference Range Interpretation Comments TROPONIN I (test code = 0.911 ng/mL <=0.034 H 4423009147) SUE (test code = SUE) Reference (Normal) [...] biotin. Lab Interpretation Abnormal (test code = 91121-1) [facility]2 AG-AB WITH [id number] 21:57:58 Test Item Value Reference Range Interpretation Comments HIV 0.12 Negative Semi-quantitative (test code = 39280-0) SUE (test code = Non-reactive for HIV-1 SUE) antigen and HIV-1/HIV-2 antibodies. ?No laboratory evidence of HIV infection. ?Repeat in 2-4 weeks if acute HIV infection is suspected. [facility] Hospital[facility]CV [id number] 21:57:58 Test Item Value Reference Range Interpretation Comments HCV Ab (test code = 27858-3) Negative HCV Semi-Quantitative (test code = 0.01 49279-2) [facility]AT[facility]IS B SURFACE [id number] 21:57:58 Test Item Value Reference Range Interpretation Comments HBsAB (test code = Negative 7391263797) HBsAb 0.00 mIU/mL Semi-Quantitative (test code = 5547059884) SUE (test code = Interpretation: SUE) ?Hepatitis B Surface Antibody ? Negative - Patient is considered to be not immune to infection with HBV. ? ? Positive - Anti-HBs detected at greater than or equal to 12 mIU/mL. ?Patient is considered to be immune to infection with HBV. ? [facility]AT[facility]IS [facility] SURFACE [id number] 21:40:35 Test Item Value Reference Range Interpretation Comments HBsAg Semi-Quantitative (test code = 0.14 Negative 5195-3) [facility] HospitalGLYCOSYLATED HEMOGLOBIN (A1C)2022-11-24 18:18:35 Test Item Value Reference Range Interpretation Comments HGB A1C (test code = 4.6 % 4.0-5.7 4548-4) SUE (test code = SUE) Reference RangesNormal: <5.7%Prediabetes: 5.7 - 6.4%Diabetes: > 6.5% Lab Interpretation (test Normal code = 46050-9) [facility] HospitalTHYROID STIMULATING [id number] 17:58:24 Test Item Value Reference Range Interpretation Comments TSH (test code = 2.03 See_Comment [Automated message] 7619570806) The system [employer]OL[employer] generated this result transmitted ref erence range: 0.45 - 4 .70 mIU/L. The refe rence range was not u sed to interpret this result as normal/abnor mal. Lab Interpretation (test Normal code = 74079-2) [facility] HospitalTROP[facility] [id number] 17:39:48 Test Item Value Reference Range Interpretation Comments TROPONIN I (test code = 1.340 ng/mL <=0.034 H 1172728177) SUE (test code = SUE) Reference (Normal) [...] biotin. Lab Interpretation Abnormal (test code = 31257-8) [facility] HospitalN-TERMINAL [id number] 17:39:48 Test Item Value Reference Range Interpretation Comments NT-proBNP (test code = 2520 pg/mL <=125 H 57044-6) SUE (test code = SUE) Positive: Heart Failure Likely Lab Interpretation (test Abnormal code = 57967-5) [facility] METABOLIC PANEL (NA, K, CL, CO2, GLUCOSE, BUN, CREATININE, CA)2022-11-24 17:30:04 Test Item Value Reference Range Interpretation Comments NA (test code = 135 mmol/L 135-145 5791335248) K (test code = 3.9 mmol/L 3.5-5.0 6786820644) CL (test code = 97 mmol/L 98-108 L 0603434000) CO2 TOTAL (test code = 27 mmol/L 23-31 6801580719) AGAP (test code = 11 2-16 5827711484) BUN (test code = 23 mg/dL 7-23 9683845594) GLUCOSE (test code = 163 mg/dL 70-110 H 3161465228) CREATININE (test code = 1.40 mg/dL 0.50-1.04 H 2385306588) CALCIUM (test code = 9.4 mg/dL 8.6-10.6 9620139030) eGFR (test code = 40.5 mL/min/1.73m2 4558027885) SUE (test code = SUE) Association of [...] tests). Lab Interpretation Abnormal (test code = 97601-7) [facility] Hospital[facility]AT[facility] FUNCTION PANEL (42974) (ALB,T.PRO,BILI T,BU/BC,ALT,AST,ALK PHOS)2022-11-24 17:30:04 Test Item Value Reference Range Interpretation Comments TOTAL BILI (test code = 8665536312) 1.0 mg/dL 0.1-1.1 BILI UNCON (test code = 1829606470) 0.6 mg/dL 0.1-1.1 BILI CONJ (test code = 8666969567) 0.0 mg/dL 0.0-0.3 T PROTEIN (test code = 3494557941) 6.8 g/dL 6.3-8.2 ALBUMIN (test code = 4817203679) 4.1 g/dL 3.5-5.0 ALK PHOS (test code = 8839574559) 746 U/L 34-122 H ALTv (test code = 1742-6) 183 U/L 5-35 H AST(SGOT) (test code = 3118994824) 196 U/L 13-40 H Lab Interpretation (test code = Abnormal 03650-1) [facility] Hospital[facility]IP[facility] PANEL (37784)(TOTAL CHOLESTEROL, TRIGLYCERIDES, HDL)2022-11-24 17:30:04 Test Item Value Reference Range Interpretation Comments CHOL (test code = 3546745734) 113 mg/dL 120-200 L HDL (test code = 6579882394) 62 mg/dL >=50 HDLC RATIO (test code = 1051146305) 1.8 <=4.5 TRIG (test code = 6138125899) 71 mg/dL 30-170 LDL CHOL (test code = 98820-5) 37 mg/dL <=160 VLDL (test code = 3386686632) 14 mg/dL 5-60 Lab Interpretation (test code = Abnormal 53515-6) [facility] WITH [id number] 16:55:22 Test Item Value Reference Range Interpretation Comments WBC (test code = 6.05 See_Comment [Automated 6690-2) message] The sy stem which generated this result transmitted reference range : 4.30 - 11.10 10*3/?L. The reference range was not used to interpret this result as normal/abnormal . RBC (test code = 3.21 See_Comment L [Automated 789-8) message] The sy stem which generated this [...] RDW-SD (test code = 44.3 fL 39.0-49.9 76866-4) RDW-CV (test code = 12.9 % 12.0-15.5 788-0) PLT (test code = 203 See_Comment [Automated 777-3) message] The sy stem which generated this result transmitted reference range : 166 - 358 10*3/ ?L. The reference r elizabeth was not used to interpret this result as normal/abnormal . MPV (test code = 9.9 fL 9.5-12.9 59341-9) NRBC/100 WBC (test 0.0 See_Comment [Automat ed code = [id number]) message] The system which generated this result transmitted reference range : 0.0 - 10.0 /100 WBCs. The refer ence range was not u sed to interpret th is result as normal/abnormal . NRBC x10^3 (test code See_Comment [Auto mated = [id number]) message] The s ystem which generated this result transmitted reference range : 10*3/?L. The reference range was not used to interpret this result as normal/abnormal . GRAN MAT (NEUT) % 59.6 % (test code = 770-8) IMM GRAN % (test code 0.20 % = 0723279906) LYMPH % (test code = 28.3 % 736-9) MONO % (test code = 9.1 % 5905-5) EOS % (test code = 2.5 % 713-8) BASO % (test code = 0.3 % 706-2) GRAN MAT x10^3(ANC) 3.61 10*3/uL 1.88-7.09 (test code = 9404797055) IMM GRAN x10^3 (test 0.00-0.06 code = 1118422349) LYMPH x10^3 (test code 1.71 10*3/uL 1.32-3.29 = 731-0) MONO x10^3 (test code 0.55 10*3/uL 0.33-0.92 = 742-7) EOS x10^3 (test code = 0.15 10*3/uL 0.03-0.39 711-2) BASO x10^3 (test code 0.01-0.07 = 704-7) Lab Interpretation Abnormal (test code = 51317-1) [facility] [id number] 12:43:54 Test Item Value Reference Range Interpretation Comments POC-GLUCOSE METER 138 mg/dL 70-110 H : TESTED A T [facility] 6720 (BEAKER) (test code = [facility], 1538) 22928: Silk Brusher/Techni smiley ID = [id number] for MANDA ESPARZA [id number] 06:54:19 Test Item Value Reference Range Interpretation Comments PHOSPHORUS (BEAKER) (test code = 4.2 mg/dL 2.3-4.7 604) Silk Brusher ID - [id number] 06:54:18 Test Item Value Reference Range Interpretation Comments MAGNESIUM (BEAKER) (test code = 1.7 mg/dL 1.6-2.6 627) Silk Brusher ID - ADMINCBC W/PLT COUNT & AUTO [id number] 06:00:54 Test Item Value Reference Range Interpretation [...] PERCENT (BEAKER) (test code = 2801) POCT-GLUCOSE [id number] 21:38:27 Test Item Value Reference Range Interpretation Comments POC-GLUCOSE METER 88 mg/dL 70-110 : TESTED A T [facility] 6720 (BEAKER) (test code = [facility], 1538) 22930: Silk Brusher/Techni smiley ID = [id number] for NADEGE MORALES POCT-GLUCOSE [id number] 18:19:26 Test Item Value Reference Range Interpretation Comments POC-GLUCOSE METER 93 mg/dL 70-110 : TESTED A T [facility] 6720 (BEAKER) (test code = [facility], 1538) 85794: Silk Brusher/Techni smiley ID = [id number] for MANDA PANCHAL POCT-GLUCOSE [id number] 13:13:27 Test Item Value Reference Range Interpretation Comments POC-GLUCOSE METER 91 mg/dL 70-110 : TESTED A T [facility] 6720 (BEAKER) (test code = [facility], 1538) 08387: Silk Brusher/Techni smiley ID = [id number] for MANDA PANCHAL BLOOD [id number] 12:00:51 Test Item Value Reference Range Interpretation Comments CULTURE (BEAKER) (test No growth in 5 days code = 1095) BLOOD [id number] 12:00:51 Test Item Value Reference Range Interpretation Comments CULTURE (BEAKER) (test No growth in 5 days code = 1095) The specimen volume collected for this blood culture was below the optimum (10 mL per bottle or 20 mL total). Use of lower volumes may adversely affect recovery and/or detection times of some organisms.POCT-GLUCOSE [id number] 06:46:01 Test Item Value Reference Range Interpretation Comments POC-GLUCOSE METER 102 mg/dL 70-110 : TESTED A T [facility] 6720 (BEAKER) (test code = [facility], 153) 92221: Silk Brusher/Techni smiley ID = [id number] for Teresa Rose [id number] 05:48:23 Test Item Value Reference Range Interpretation Comments MAGNESIUM (BEAKER) (test code = 1.8 mg/dL 1.6-2.6 627) Silk Brusher ID - [id number] 05:48:23 Test Item Value Reference Range Interpretation Comments PHOSPHORUS (BEAKER) (test code = 3.6 mg/dL 2.3-4.7 604) Silk Brusher ID - MARCOBASIC METABOLIC [id number] 05:48:22 Test Item Value Reference Range Interpretation [...] not appl icable for dialysis patien ts Silk Brusher ID - MARCOCBC W/PLT COUNT & AUTO [id number] 05:10:47 Test Item Value Reference Range Interpretation [...] PERCENT (BEAKER) (test code = 2801) POCT-GLUCOSE [id number] 23:44:35 Test Item Value Reference Range Interpretation Comments POC-GLUCOSE METER 93 mg/dL 70-110 : TESTED A T [facility] 6720 (BEAKER) (test code = [facility] [place], 1538) 28034: Silk Brusher/Techni smiley ID = [id number] for Teresa Camejo POCT-GLUCOSE [id number] 17:35:54 Test Item Value Reference Range Interpretation Comments POC-GLUCOSE METER 108 mg/dL 70-110 : TESTED A T [facility] 6720 (BEAKER) (test code = [facility], 1538) 41924: Silk Brusher/Techni smiley ID = [id number] for Donna Rolle BLOOD [id number] 17:01:46 Test Item Value Reference Range Interpretation Comments CULTURE (BEAKER) (test No growth in 5 days code = 1095) The specimen volume collected for this blood culture was below the optimum (10 mL per bottle or 20 mL total). Use of lower volumes may adversely affect recovery and/or detection times of some organisms.POCT-GLUCOSE [id number] 13:41:35 Test Item Value Reference Range Interpretation Comments POC-GLUCOSE METER 99 mg/dL 70-110 : TESTED A T [facility] 6720 (BEAKER) (test code = [facility], 1538) 75771: Silk Brusher/Techni smiley ID = [id number] for Donna Baxter BLOOD [id number] 13:01:43 Test Item Value Reference Range Interpretation Comments CULTURE (BEAKER) (test No growth in 5 days code = 1095) POCT-GLUCOSE [id number] 07:21:17 Test Item Value Reference Range Interpretation Comments POC-GLUCOSE METER 110 mg/dL 70-110 : TESTED A T [facility] 6720 (BEAKER) (test code = [facility], 1538) 77658: Silk Brusher/Techni smiley ID = [id number] for Teresa Rose BASIC METABOLIC [id number] 05:31:26 Test Item Value Reference Range Interpretation [...] not appl icable for dialysis patien ts Silk Brusher ID - [id number] 05:31:26 Test Item Value Reference Range Interpretation Comments MAGNESIUM (BEAKER) (test code = 2.0 mg/dL 1.6-2.6 627) Silk Brusher ID - [id number] 05:31:26 Test Item Value Reference Range Interpretation Comments PHOSPHORUS (BEAKER) (test code = 3.6 mg/dL 2.3-4.7 604) Silk Brusher ID - MARCOCBC W/PLT COUNT & AUTO [id number] 04:56:52 Test Item Value Reference Range Interpretation [...] PERCENT (BEAKER) (test code = 2801) POCT-GLUCOSE [id number] 00:26:59 Test Item Value Reference Range Interpretation Comments POC-GLUCOSE METER 135 mg/dL 70-110 H : TESTED A T [facility] 6720 (BEAKER) (test code = [facility], 1538) 69395: Silk Brusher/Techni smiley ID = [id number] for Teresa Rose POCT-GLUCOSE [id number] 17:22:27 Test Item Value Reference Range Interpretation Comments POC-GLUCOSE METER 127 mg/dL 70-110 H : TESTED A T [facility] 6720 (BEAKER) (test code = [facility], 1538) 72922: Silk Brusher/Techni smiley ID = [id number] for Um eh, Akumbu POCT-GLUCOSE [id number] 17:20:21 Test Item Value Reference Range Interpretation Comments POC-GLUCOSE METER 23 mg/dL 70-110 LL : TESTED A T [facility] 6720 (BEAKER) (test code = [facility], 1538) 83465: Silk Brusher/Techni smiley ID = [id number] for Umeh , Herbertu POCT-GLUCOSE [id number] 12:34:42 Test Item Value Reference Range Interpretation Comments POC-GLUCOSE METER 129 mg/dL 70-110 H : TESTED A T [facility] 6720 (BEAKER) (test code = [facility], 1538) 72344: Silk Brusher/Techni smiley ID = [id number] for Um eh, Madhuumbu [id number] 08:08:41 Test Item Value Reference Range Interpretation Comments MAGNESIUM (BEAKER) (test code = 1.9 mg/dL 1.6-2.6 627) Silk Brusher ID - [id number] 08:08:41 Test Item Value Reference Range Interpretation Comments PHOSPHORUS (BEAKER) (test code = 3.5 mg/dL 2.3-4.7 604) Silk Brusher ID - ADMINBASIC METABOLIC [id number] 08:08:40 Test Item Value Reference Range Interpretation [...] not appl icable for dialysis patien ts Silk Brusher ID - ADMINPOCT-GLUCOSE [id number] 07:08:26 Test Item Value Reference Range Interpretation Comments POC-GLUCOSE METER 119 mg/dL 70-110 H : TESTED A T [facility] 6720 (BEAKER) (test code = [facility] [place], 1538) 60428: Silk Brusher/Techni smiley ID = [id number] for Teresa Rose CBC W/PLT COUNT & AUTO [id number] 06:25:01 Test Item Value Reference Range Interpretation [...] PERCENT (BEAKER) (test code = 2801) POCT-GLUCOSE [id number] 23:32:08 Test Item Value Reference Range Interpretation Comments POC-GLUCOSE METER 97 mg/dL 70-110 : TESTED A T [facility] 6720 ([facility]) (test code = [facility], 153) 03766: Silk Brusher/Techni smiley ID = [id number] for Teresa Camejo POCT-GLUCOSE [id number] 17:52:25 Test Item Value Reference Range Interpretation Comments POC-GLUCOSE METER 121 mg/dL 70-110 H : [facility] T [facility] 6720 [facility] (test code = [facility], 153) 33926: Silk Brusher/Techni smiley ID = [id number] for An derson, Donna POCT-GLUCOSE [id number] 12:24:17 Test Item Value Reference Range Interpretation Comments POC-GLUCOSE METER 106 mg/dL 70-110 : TEST[facility] A T [facility] 6720 ([facility] (test code = [facility], 153) 26126: Silk Brusher/Techni smiley ID = [id number] for An derson, Donna VANCOMYCIN LEVEL, [id number] 10:00:44 Test Item Value Reference Range Interpretation Comments VANCOMYCIN TROUGH (BEAKER) (test 35.0 ug/mL 10.0-20.0 HH code = 522) Silk Brusher ID - ADMINPOCT-GLUCOSE [id number] 06:04:34 Test Item Value Reference Range Interpretation Comments POC-GLUCOSE METER 98 mg/dL 70-110 : TESTED A T [facility] 6720 (BEAKER) (test code = [facility], 1538) 57537: Silk Brusher/Techni smiley ID = [id number] for Andi Warren [id number] 04:34:22 Test Item Value Reference Range Interpretation Comments PHOSPHORUS (BEAKER) (test code = 4.3 mg/dL 2.3-4.7 604) Silk Brusher ID - mmBASIC METABOLIC [id number] 04:34:21 Test Item Value Reference Range Interpretation [...] not appl icable for dialysis patien ts Silk Brusher ID - [id number] 04:34:21 Test Item Value Reference Range Interpretation Comments MAGNESIUM (BEAKER) (test code = 2.0 mg/dL 1.6-2.6 627) Silk Brusher ID - mmCBC W/PLT COUNT & AUTO [id number] 04:15:17 Test Item Value Reference Range Interpretation [...] PERCENT (BEAKER) (test code = 2801) POCT-GLUCOSE [id number] 00:10:22 Test Item Value Reference Range Interpretation Comments POC-GLUCOSE METER 102 mg/dL 70-110 : TESTED A T [facility] 6720 (BEAKER) (test [facility] = 1538) 64857: Silk Brusher/Techni smiley ID = [id number] for Andi Warren BASIC METABOLIC [id number] 19:00:42 Test Item Value Reference Range Interpretation [...] not appl icable for dialysis patien ts Silk Brusher ID - JSPOCT-GLUCOSE [id number] 17:28:38 Test Item Value Reference Range Interpretation Comments POC-GLUCOSE METER 122 mg/dL 70-110 H : TESTED A T [facility] 6720 (BEAKER) (test code = [facility], 1538) 89657: Silk Brusher/Techni smiley ID = [id number] for An Donna lucas POCT-GLUCOSE [id number] 12:36:44 Test Item Value Reference Range Interpretation Comments POC-GLUCOSE METER 110 mg/dL 70-110 : TESTED A T [facility] 6720 (BEAKER) (test code = [facility], 1538) 19789: Silk Brusher/Techni smiley ID = [id number] for An Donna lucas [id number] 06:20:37 Test Item Value Reference Range Interpretation Comments MAGNESIUM (BEAKER) (test code = 2.2 mg/dL 1.6-2.6 627) Silk Brusher ID - [id number] 06:20:37 Test Item Value Reference Range Interpretation Comments PHOSPHORUS (BEAKER) (test code = 3.9 mg/dL 2.3-4.7 604) Silk Brusher ID - ADMINBASIC METABOLIC [id number] 06:20:36 Test Item Value Reference Range Interpretation [...] not appl icable for dialysis patien ts Silk Brusher ID - ADMINPOCT-GLUCOSE [id number] 06:09:53 Test Item Value Reference Range Interpretation Comments POC-GLUCOSE METER 69 mg/dL 70-110 L : TESTED A T [facility] 6720 (BEAKER) (test code = [facility], 1538) 06011: Silk Brusher/Techni smiley ID = [id number] for Andi Warren CBC W/PLT COUNT & AUTO [id number] 05:15:05 Test Item Value Reference Range Interpretation [...] code = 2801) XR ABDOMEN/KUB 1 VIEW [id number] 21:59:17 [facility] Irineo : 1975 Sex: FEXAM/TECHNIQUE: XR ABDOMEN/KUB 1 VIEW PORTABLEINDICATION: Confirm corpak placementCOMPARISON: 11/05/2022.FINDINGS: Feeding tube terminates in the distal stomach. No dilated loops of largesmall bowel. No acute osseous process. Lung bases are clear.IMPRESSION:Feeding tube terminates in the distal stomach.Electronically Signed By: Carlos Preciado11/07/2022 22:01 CDTWorkstation Name: [id number] METABOLIC [id number] 18:29:04 Test Item Value Reference Range Interpretation [...] not appl icable for dialysis patien ts Silk Brusher ID - BSDRUG SCREEN, URINE, [id number] 08:47:31 Test Item Value Reference Range Interpretation Comments SCAN RESULT (test see scanned report See scanned report. code = [id number]) see scanned reportPOCT-GLUCOSE [id number] 06:13:13 Test Item Value Reference Range Interpretation Comments POC-GLUCOSE METER 81 mg/dL 70-110 : TESTED A T [facility] 6720 (BEAKER) (test code = [facility] [place], 1538) 72115: Silk Brusher/Techni smiley ID = [id number] for Jessica Rodrigues [id number] 04:03:55 Test Item Value Reference Range Interpretation Comments PHOSPHORUS (BEAKER) (test code = 4.8 mg/dL 2.3-4.7 H 604) Silk Brusher ID - EMBASIC METABOLIC [id number] 04:03:54 Test Item Value Reference Range Interpretation [...] not appl icable for dialysis patien ts Silk Brusher ID - [id number] 04:03:54 Test Item Value Reference Range Interpretation Comments MAGNESIUM (BEAKER) (test code = 2.4 mg/dL 1.6-2.6 627) Silk Brusher ID - EMHIGH SENSITIVITY TROPONIN [id number] 03:58:57 Test Item Value Reference Range Interpretation Comments HIGH SENSITIVITY 165 pg/ml See_Comment H [Automated message] TROPONIN I (test code The sy stem which = [id number]) generated this result transmitted ref erence range: <=17. Th e reference range was not used to int erpret this result as normal/abnormal . Silk Brusher ID - EMThe GENERAL FARM MANAGER STAT High Sensitivity Troponin-I results should be used in conjunctionwith other diagnostic information such as ECG, clinical observations and information, and patient symptoms to aid in the diagnosis of NJ.CBC W/PLT COUNT & AUTO [id number] 03:38:52 Test Item Value Reference Range Interpretation [...] PERCENT (BEAKER) (test code = 2801) POCT-GLUCOSE [id number] 00:25:14 Test Item Value Reference Range Interpretation Comments POC-GLUCOSE METER 88 mg/dL 70-110 : TESTED A T [facility] 6720 (BEAKER) (test code = [facility] [place], 1538) [address]: Silk Brusher/Techni smiley ID = [id number] for Jessica Rodrigues HIGH SENSITIVITY TROPONIN [id number] 22:04:24 Test Item Value Reference Range Interpretation Comments HIGH SENSITIVITY 193 pg/ml See_Comment H [Automated message] TROPONIN I (test code The sy stem which = [id number]) generated this result transmitted ref erence range: <=17. Th e reference range was not used to int erpret this result as normal/abnormal . Silk Brusher ID - DBThe GENERAL FARM MANAGER STAT High Sensitivity Troponin-I results should be used in conjunctionwith other diagnostic information such as ECG, clinical observations and information, and patient symptoms to aid in the diagnosis of NJ.URINALYSIS W/ REFLEX URINE [id number] 15:49:18 Test Item Value Reference Range Interpretation [...] /LPF 514) SOURCE(BEAKER) (test code = 2795) Silk Brusher ID - [auto]Silk Brusher ID - bsPT/[id number] 15:35:00 Test Item Value Reference Range Interpretation [...] patients with mechanical heart valves.HIGH SENSITIVITY TROPONIN [id number] 15:30:15 Test Item Value Reference Range Interpretation Comments HIGH SENSITIVITY 264 pg/ml See_Comment H [Automated message] TROPONIN I (test code The sy stem which = [id number]) generated this result transmitted ref erence range: <=17. Th e reference range was not used to int erpret this result as normal/abnormal . Silk Brusher ID - ADMINThe GENERAL FARM MANAGER STAT High Sensitivity Troponin-I results should be used in conjunction with other diagnostic information such as ECG, clinical observations and information, and patientsymptoms to aid in the diagnosis of NJ. BLOOD GAS, [id number] 15:09:57 Test Item Value Reference Range Interpretation [...] 36.0 XR CHEST 1 VIEW PORTABLE / [id number] 13:38:36 [facility] 1975 Sex: FChest, 1 view, 11/06/2022 11:58 AM.History: r/o aspiration pneumonia.Comparison: 10/30/2022.Discussion: Thecardiac silhouette is prominent but stable. Lungs areclear. There is no pneumothorax. Feeding tube terminates below thehemidiaphragm. Right IJ central line is no longer present. There are noacute osseous findings.IMPRESSION:No acute pulmonary findings.Electronically Signed By: Sage Caruso11/06/2022 13:40 CDTWorkstation Name: [id number] 2022-11-06 11:32:33 Test Item Value Reference Range Interpretation Comments PROCALCITONIN (BEAKER) (test code 0.31 ng/mL <0.05 H = 3036) SEPSIS RISK (ng/mL)Low: 0.05-0.50Intermediate: 0.51-2.00High: >=2.01HIGH SENSITIVITY TROPONIN [id number] 11:27:53 Test Item Value Reference Range Interpretation Comments HIGH SENSITIVITY 344 pg/ml See_Comment H [Automated message] TROPONIN I (test code The stem which = [id number]) generated this result transmitted ref erence range: <=17. Th e reference range was not used to int erpret this result as normal/abnormal . Silk Brusher ID - DAMIÁN WThe GENERAL FARM MANAGER STAT High Sensitivity Troponin-I results should be used in conjunction with other diagnostic information such as ECG, clinical observations and information, and patient symptoms to aid in the diagnosis of NJ.LACTIC ACID, [id number] 11:07:17 Test Item Value Reference Range Interpretation Comments LACTATE BLOOD VENOUS (2) (BEAKER) 0.80 mmol/L 0.50-2.00 (test code = 2872) Silk Brusher ID - DAMIÁN WCT BRAIN WITHOUT IV [id number] 10:59:53 [facility] : 1975 Sex: F ADDENDUM #1 Addendum: Compared to 11/02/2022, there is unchanged mass effect relatedto intraparenchymal hematoma given differences in technique with 7 mmleftward midline shift.Electronically Signed By: Alexnadra Liang ORIGINAL REPORT CT BRAIN WITHOUT IV CONTRASTINDICATION: Unlisted Reason for ExamCOMPARISON: CT prior dayTECHNIQUE: Noncontrast axial CT imaging of the brain and skull. DOSE REDUCTION: Dose modulation, iterative reconstruction, and/orweight-based adjustment ofthe mA/kV was utilized to reduce theradiation dose [...] of the left lateral ventricle and leftward subfalc ineherniation. Orbits are within normal limits.No obstructive paranasal sinus disease.IMPRESSION:Increase mass effect related to previously described rightintraparenchymal hematoma with intraventricular extent, formerly with 4mm leftward midline shift and now 6-7 mm. New leftward subfalcineherniation.Early entrapment of the left lateral ventricle.If there is persistent clinical concern for intracranial pathology, MRexamination is recommended for further characterization.Electronically Signed By: Alexandra Liang11/06/2022 11:01 CDTWorkstation Name: [id number] 10:57:58 Test Item Value Reference Range Interpretation Comments POC-HEMATOCRIT 34 % 36-45 L : Silk Brusher/Te chnician ID = ([facility]) (test code = 299659 for CARLOS, 1857) SAMY [id number]-[id number] 10:57:58 Test Item Value Reference Range Interpretation Comments POC-GLUCOSE ([facility]) 117 mg/dL 70-110 H : TESTE D AT [place] [address] (test code = 1855) [facility], [address]: Silk Brusher/Techni smiley ID = [id number] for RACE CANDY, SAMY [id number] 10:57:57 Test Item Value Reference Range Interpretation Comments POC-POTASSIUM 5.5 meq/L 3.6-5.5 : TESTED AT [place] [address] ([facility]) (test code [facility], = 1540) [address]: Silk Brusher/Techni smiley ID = [id number] for RACE CANDY, SAMY [id number] 10:57:57 Test Item Value Reference Range Interpretation Comments POC-HEMOGLOBIN 11.6 g/dL 12.0-15.0 L : TESTED AT [place] [address] ([facility]) (test code [facility], = 1856) [address]: Silk Brusher/Techni smiley ID = [id number] for RACE CANDY, SAMY [id number]-[id number] 10:57:52 Test Item Value Reference Range Interpretation Comments POC-SODIUM ([facility]) 142 meq/L 135-148 : TESTED AT [facility] 6720 (test code = 1542) [facility], [address]: Silk Brusher/Techni smiley ID = [id number] for SAMY DAVIS POCT-BLOOD GASES, [id number] 10:57:51 Test Item Value Reference Range Interpretation [...] 7.0 meq/L -2.0-3.0 H : TESTED AT [place] [address] ARTERIAL-POC [facility], (BEAKER) (test code [address]: = 1841) Silk Brusher/Techni smiley ID = [id number] for SAMY DAVIS POCT-GLUCOSE [id number] 10:21:20 Test Item Value Reference Range Interpretation Comments POC-GLUCOSE METER 117 mg/dL 70-110 H : TESTED A T [place] [address] (BEAKER) (test code = [facility], 1538) [address]: Silk Brusher/Techni smiley ID = [id number] for DENISE ESPARZAILIA POCT-GLUCOSE [id number] 05:45:28 Test Item Value Reference Range Interpretation Comments POC-GLUCOSE METER 116 mg/dL 70-110 H : TESTED A T [place] [address] ([facility] (test code = [facility], 1538) [address]: Silk Brusher/Techni smiley ID = [id number] for Teresa Rose BASIC METABOLIC [id number] 05:42:31 Test Item Value Reference Range Interpretation [...] not appl icable for dialysis patien ts Silk Brusher ID - [id number] 05:40:46 Test Item Value Reference Range Interpretation Comments MAGNESIUM (BEAKER) (test code = 2.9 mg/dL 1.6-2.6 H 627) Silk Brusher ID - [id number] 05:40:46 Test Item Value Reference Range Interpretation Comments PHOSPHORUS (BEAKER) (test code = 6.5 mg/dL 2.3-4.7 H 604) Silk Brusher ID - ADMINCBC W/PLT COUNT & AUTO [id number] 05:38:35 Test Item Value Reference Range Interpretation [...] PERCENT (BEAKER) (test code = 2801) POCT-GLUCOSE [id number] 23:35:25 Test Item Value Reference Range Interpretation Comments POC-GLUCOSE METER 135 mg/dL 70-110 H : TESTED A T [facility] 6720 (BEAKER) (test code = [facility], 1538) [address]: Silk Brusher/Techni smiley ID = [id number] for Teresa Rose POCT-GLUCOSE [id number] 17:28:48 Test Item Value Reference Range Interpretation Comments POC-GLUCOSE METER 101 mg/dL 70-110 : [facility] (test code = [facility], 1538) [address]: Silk Brusher/Techni smiley ID = [id number] for CIRA HUMPHREY BLOOD [id number] 17:00:30 Test Item Value Reference Range Interpretation Comments CULTURE (BEAKER) (test No growth in 5 days code = 1095) BLOOD [id number] 17:00:30 Test Item Value Reference Range Interpretation Comments CULTURE (BEAKER) (test No growth in 5 days code = 1095) XR ABDOMEN/KUB 1 VIEW [id number] 14:17:07 [facility] IV[facility]NLAWGEETHA L : 1975 Sex: FXR ABDOMEN/KUB 1 VIEW PORTABLETECHNIQUE: Supine radiograph(s) of the abdomen and pelvis.HISTORY: corpak placementCOMPARISON: 12/04/2022IMPRESSION:Lines and tubes: Enteric tube is seen with tip in the stomachElectronically Signed By: Sarah Carrera11/05/2022 14:19 CDTWorkstation Name: [id number] 12:53:33 Test Item Value Reference Range Interpretation Comments POC-GLUCOSE METER 88 mg/dL 70-110 : [facility] (test code = AVINASH Dunn [facility], 1538) [address]: Silk Brusher/Techni smiley ID = [id number] for CIRA ROLAND POCT-GLUCOSE [id number] 06:25:50 Test Item Value Reference Range Interpretation Comments POC-GLUCOSE METER 110 mg/dL 70-110 : TESTED A T [facility] 6720 (BEAKER) (test code = AVINASH Dunn [facility], 1538) 85[address]: Silk Brusher/Techni smiley ID = [id number] for NADEGE IVEY BASIC METABOLIC [id number] 04:16:53 Test Item Value Reference Range Interpretation [...] not appl icable for dialysis patien ts Silk Brusher ID - DAMIÁN [id number] 04:16:53 Test Item Value Reference Range Interpretation Comments MAGNESIUM (BEAKER) (test code = 2.8 mg/dL 1.6-2.6 H 627) Silk Brusher ID - DAMIÁN [id number] 04:16:53 Test Item Value Reference Range Interpretation Comments PHOSPHORUS (BEAKER) (test code = 5.7 mg/dL 2.3-4.7 H 604) Silk Brusher ID Gisele STEEL WCBC W/PLT COUNT & AUTO [id number] 03:44:05 Test Item Value Reference Range Interpretation [...] PERCENT (BEAKER) (test code = 2801) POCT-GLUCOSE [id number] 23:25:33 Test Item Value Reference Range Interpretation Comments POC-GLUCOSE METER 114 mg/dL 70-110 H : TESTED A T [facility] 6720 (BEAKER) (test code = [facility], 153) 25395: Silk Brusher/Techni smiley ID = [id number] for NADEGE IVEY [id number] 18:58:11 Test Item Value Reference Range Interpretation Comments SODIUM (BEAKER) (test code = 381) 142 meq/L 136-145 Silk Brusher ID - JSPOCT-GLUCOSE [id number] 17:04:52 Test Item Value Reference Range Interpretation Comments POC-GLUCOSE METER 142 mg/dL 70-110 H : TESTED A T [facility] 6720 (BEAKER) (test code = [facility], 153) 96882: Silk Brusher/Techni smiley ID = [id number] for MA RTINEZ, MANDA POCT-GLUCOSE [id number] 12:43:34 Test Item Value Reference Range Interpretation Comments POC-GLUCOSE METER 127 mg/dL 70-110 H : TESTED A T [facility] 6720 (BEAKER) (test code = [facility], 153) 26334: Silk Brusher/Techni smiley ID = [id number] for MA RTINEZ, MANDA [id number] 12:42:31 Test Item Value Reference Range Interpretation Comments SODIUM (BEAKER) (test code = 381) 141 meq/L 136-145 Silk Brusher ID - JSPOCT-GLUCOSE [id number] 05:53:11 Test Item Value Reference Range Interpretation Comments POC-GLUCOSE METER 122 mg/dL 70-110 H : TESTED A T [facility] 6720 (BEAKER) (test code = [facility], 153) 33710: Silk Brusher/Techni smiley ID = [id number] for NADEGE IVEY [id number] 04:57:58 Test Item Value Reference Range Interpretation Comments PHOSPHORUS (BEAKER) 6.1 mg/dL 2.3-4.7 H Specimen slightly (test code = 604) hemolyzed Silk Brusher ID - DAMIÁN WBASIC METABOLIC [id number] 04:57:58 Test Item Value Reference Range Interpretation [...] (test code = 697) EGFR (BEAKER) 49 Interpretati on of eGFR (test code = [...] not appl icable for dialysis patien ts Silk Brusher ID - DAMIÁN [id number] 04:57:57 Test Item Value Reference Range Interpretation Comments MAGNESIUM (BEAKER) 2.7 mg/dL 1.6-2.6 H Specimen slightly (test code = 627) hemolyzed Silk Brusher ID - DAMIÁN WCBC W/PLT COUNT & AUTO [id number] 04:36:11 Test Item Value Reference Range Interpretation [...] 417) IMMATURE GRANULOCYTES-RELATIVE 0.50 % 0.00-1.00 PERCENT (WESLEY) (test code = 2801) POCT-GLUCOSE [id number] 00:26:17 Test Item Value Reference Range Interpretation Comments POC-GLUCOSE METER 117 mg/dL 70-110 H : TESTED A T [facility] 6720 (BEBITA) (test code = [facility], 1538) 95614: Silk Brusher/Techni smiley ID = [id number] for NADEGE IVEY [id number] 19:29:04 Test Item Value Reference Range Interpretation Comments SODIUM (BEAKER) (test code = 381) 141 meq/L 136-145 Silk Brusher ID - ADMINPOCT-GLUCOSE [id number] 16:58:24 Test Item Value Reference Range Interpretation Comments POC-GLUCOSE METER 142 mg/dL 70-110 H : [facility] (test code = [facility], 1538) 39849: Silk Brusher/Techni smiley ID = [id number] for MANDA ESPARZA XR ABDOMEN/KUB 1 VIEW [id number] 13:01:43 [facility] Irineo : 1975 Sex: FAbdomen , one viewHistory:Feeding tube placementComparison:10/30/2022Findings:Tip of the feeding tube is near the pylorus. Nonobstructive bowel gaspattern. Cholecystectomy clips within the right upper quadrant.Electronically Signed By: Kam Vigil MD11/03/2022 13:03 CDTWorkstation Name: [id number] 12:39:24 Test Item Value Reference Range Interpretation Comments SODIUM (BEAKER) (test code = 381) 142 meq/L 136-145 POCT-GLUCOSE [id number] 12:05:03 Test Item Value Reference Range Interpretation Comments POC-GLUCOSE METER 118 mg/dL 70-110 H : TESTED A T [facility] 6720 (BEAKER) (test code = [facility] [place], 1538) 83939: Silk Brusher/Techni smiley ID = [id number] for MANDA ESPARZA [id number] 06:17:11 Test Item Value Reference Range Interpretation Comments PHOSPHORUS (BEAKER) (test code = 4.1 mg/dL 2.3-4.7 604) Silk Brusher ID - DAMIÁN WBASIC METABOLIC [id number] 06:17:10 Test Item Value Reference Range Interpretation [...] not appl icable for dialysis patien ts Silk Brusher ID - DAMIÁN [id number] 06:17:10 Test Item Value Reference Range Interpretation Comments MAGNESIUM (BEAKER) (test code = 2.4 mg/dL 1.6-2.6 627) Silk Brusher ID - DAMIÁN WPOCT-GLUCOSE [id number] 05:50:21 Test Item Value Reference Range Interpretation Comments POC-GLUCOSE METER 121 mg/dL 70-110 H : TESTED A T [facility] 6720 (BEAKER) (test code = [facility] [place], 1538) 02084: Silk Brusher/Techni smiley ID = [id number] for NADEGE IVEY CBC W/PLT COUNT & AUTO [id number] 05:25:22 Test Item Value Reference Range Interpretation [...] PERCENT (BEAKER) (test code = 2801) POCT-GLUCOSE [id number] 23:36:51 Test Item Value Reference Range Interpretation Comments POC-GLUCOSE METER 116 mg/dL 70-110 H : TESTED A T [facility] 6720 (BEAKER) (test code = [facility], 1538) 77028: Silk Brusher/Techni smiley ID = [id number] for NADEGE IVEY [id number] 18:30:49 Test Item Value Reference Range Interpretation Comments SODIUM (BEAKER) (test code = 381) 141 meq/L 136-145 Silk Brusher ID - ADMINPOCT-GLUCOSE [id number] 17:57:14 Test Item Value Reference Range Interpretation Comments POC-GLUCOSE METER 118 mg/dL 70-110 H : TESTED A T [facility] 6720 (BEAKER) (test code = [facility], 1538) 31988: Silk Brusher/Techni smiley ID = [id number] for An Donna lucas MRSA [id number] 14:39:15 Test Item Value Reference Range Interpretation Comments CULTURE (BEAKER) (test code No MRSA isolated = 1095) [id number] 13:35:39 Test Item Value Reference Range Interpretation Comments SODIUM (BEAKER) (test code = 381) 139 meq/L 136-145 Silk Brusher ID - BVPOCT-GLUCOSE [id number] 13:06:41 Test Item Value Reference Range Interpretation Comments POC-GLUCOSE METER 134 mg/dL 70-110 H : TESTED A T [facility] 6720 (BEAKER) (test code = [facility], 1538) 76828: Silk Brusher/Techni smiley ID = [id number] for An Donna lucas CT BRAIN WITHOUT IV [id number] 13:00:59 [facility] : 1975 [...] Signed By: Alexandra Liang11/02/2022 13:03 CDTWorkstation Name: [id number] 06:29:29 Test Item Value Reference Range Interpretation Comments SODIUM (BEAKER) (test code = 381) 139 meq/L 136-145 BASIC METABOLIC [id number] 06:29:28 Test Item Value Reference Range Interpretation [...] not appl icable for dialysis patien ts Silk Brusher ID - [id number] 06:29:28 Test Item Value Reference Range Interpretation Comments MAGNESIUM (BEAKER) (test code = 2.2 mg/dL 1.6-2.6 627) Silk Brusher ID - [id number] 06:29:28 Test Item Value Reference Range Interpretation Comments PHOSPHORUS (BEAKER) (test code = 3.8 mg/dL 2.3-4.7 604) Silk Brusher ID - ALTONOPOCT-GLUCOSE [id number] 06:21:55 Test Item Value Reference Range Interpretation Comments POC-GLUCOSE METER 125 mg/dL 70-110 H : TESTED A T [facility] 6720 (BEAKER) (test code = [facility] [place], 1538) 92096: Silk Brusher/Techni smiley ID = [id number] for NADEGE IVEY CBC W/PLT COUNT & AUTO [id number] 06:08:00 Test Item Value Reference Range Interpretation [...] PERCENT (BEAKER) (test code = 2801) POCT-GLUCOSE [id number] 00:19:06 Test Item Value Reference Range Interpretation Comments POC-GLUCOSE METER 99 mg/dL 70-110 : TESTED A T [facility] 6720 (BEAKER) (test code = [facility], 1538) 63000: Silk Brusher/Techni smiley ID = [id number] for NADEGE MORALES [id number] 18:45:56 Test Item Value Reference Range Interpretation Comments SODIUM (BEAKER) (test code = 381) 140 meq/L 136-145 Silk Brusher ID - ADMPOCT-GLUCOSE [id number] 18:39:21 Test Item Value Reference Range Interpretation Comments POC-GLUCOSE METER 121 mg/dL 70-110 H : TESTED A T [facility] 6720 (BEAKER) (test code [facility], = 1538) 57224: Silk Brusher/Techni smiley ID = [id number] for Latonia Connolly [id number] 14:24:36 Test Item Value Reference Range Interpretation Comments SODIUM (BEAKER) (test code = 381) 140 meq/L 136-145 Silk Brusher ID - [id number] 10:06:02 Test Item Value Reference Range Interpretation Comments POTASSIUM (BEAKER) (test code = 3.8 meq/L 3.5-5.1 379) Silk Brusher ID - [id number] 10:06:01 Test Item Value Reference Range Interpretation Comments MAGNESIUM (BEAKER) (test code = 2.3 mg/dL 1.6-2.6 627) Silk Brusher ID - ADMVANCOMYCIN LEVEL, [id number] 09:59:39 Test Item Value Reference Range Interpretation Comments VANCOMYCIN TROUGH (BEAKER) (test 8.4 ug/mL 10.0-20.0 L code = 522) Silk Brusher ID - [id number] 04:21:26 Test Item Value Reference Range Interpretation Comments MAGNESIUM (BEAKER) (test code = 2.0 mg/dL 1.6-2.6 627) Silk Brusher ID - [id number] 04:21:26 Test Item Value Reference Range Interpretation Comments PHOSPHORUS (BEAKER) (test code = 3.2 mg/dL 2.3-4.7 604) Silk Brusher ID - ADMINBASIC METABOLIC [id number] 04:21:25 Test Item Value Reference Range Interpretation [...] not appl icable for dialysis patien ts Silk Brusher ID - ADMINCBC W/PLT COUNT & AUTO [id number] 03:36:42 Test Item Value Reference Range Interpretation [...] 0.00-1.00 PERCENT (BEAKER) (test code = 2801) [id number] 00:11:29 Test Item Value Reference Range Interpretation Comments SODIUM (BEAKER) (test code = 381) 139 meq/L 136-145 Silk Brusher ID - [id number] 18:25:44 Test Item Value Reference Range Interpretation Comments SODIUM (NERISAKER) (test code = 381) 139 meq/L 136-145 Silk Brusher ID - esauSARS-COV2/INFLUENZA/RSV [id number] 14:03:24 Test Item Value Reference Range Interpretation Comments SARS-COV2/RT-PCR Negative Negative The SARS-Co V-2 target (test code = nucleic acids a re not 1734522) detected in thi s specimen. Negat yesika [...] individuals amanda pected of COVID-19 by the [facility]. INFLUENZA A RT-PCR Negative Negative The Flu A target nucleic (test code = acids are not d etected in 5292272) this specimen. INFLUENZA B RT-PCR Negative Negative The Flu B target nucleic (test code = acids are not d etected in 2927310) this specimen. RSV RT-PCR (test Negative Negative The RSV tar get nucleic code = 1467262) acids are no t detected in this [...] Xpress SARS-CoV-2/Flu/RSV by their healthcareprovider. Results from [facility] Xpert Xpress SARS-CoV-2/Flu/RSV test should be [...] of the Act.Fact Sheet for Healthcare Providers:https ://www.[employer]/Documents/Xpert%20Xpress%20SARS%20CoV-2/Fact%20Sheets/302-390 2%76TYMO-QLH-2%20HEALTHCARE%20PROVIDERS%20FACT%20SHEET.pdfFact Sheet for Healthcare Patients:https://www.[employer]/Docum ents/Xpert%20Xpress%20SARS%20Cov-2/Fact%20Sheets/302-3801%82VAZK-DRW-8%20PATIENT %20FACT%20SHEET.[id number] 12:52:25 Test Item Value Reference Range Interpretation Comments SODIUM (BEAKER) (test code = 381) 135 meq/L 136-145 L Silk Brusher ID - [id number] 12:52:24 Test Item Value Reference Range Interpretation Comments MAGNESIUM (BEAKER) (test code = 2.4 mg/dL 1.6-2.6 627) Silk Brusher ID - esauPOCT-GLUCOSE [id number] 12:00:51 Test Item Value Reference Range Interpretation Comments POC-GLUCOSE METER 130 mg/dL 70-110 H : TESTED A T [facility] 6720 (BEAKER) (test code [facility], = 1538) 12081: Silk Brusher/Techni smiley ID = [id number] for Latonia Connolly B-TYPE NATRIURETIC FACTOR (BNP)2022-10-31 10:43:21 Test Item Value Reference Range Interpretation Comments B-TYPE NATRIURETIC PEPTIDE (BEAKER) 568 pg/mL 0-100 H (test code = 700) Silk Brusher ID - [id number] 05:07:29 Test Item Value Reference Range Interpretation Comments MAGNESIUM (BEAKER) (test code = 1.9 mg/dL 1.6-2.6 627) Silk Brusher ID - [id number] 05:07:29 Test Item Value Reference Range Interpretation Comments PHOSPHORUS (BEAKER) (test code = 3.7 mg/dL 2.3-4.7 604) Silk Brusher ID - ADMINBASIC METABOLIC [id number] 05:07:28 Test Item Value Reference Range Interpretation [...] not appl icable for dialysis patien ts Silk Brusher ID - ADMINCBC W/PLT COUNT & AUTO [id number] 04:47:13 Test Item Value Reference Range Interpretation [...] 0.00-1.00 PERCENT (BEAKER) (test code = 2801) [id number] 23:06:40 Test Item Value Reference Range Interpretation Comments SODIUM (BEAKER) (test code = 381) 133 meq/L 136-145 L Silk Brusher ID - ADMINHIGH SENSITIVITY TROPONIN [id number] 22:59:43 Test Item Value Reference Range Interpretation Comments HIGH SENSITIVITY 92 pg/ml See_Comment H [Automated message] TROPONIN I (test code = The system which 3968926) generated this result transmitted ref erence range: <=17. Th e reference range was not used to int erpret this result as normal/abnormal . Silk Brusher ID - ADMINThe GENERAL FARM MANAGER STAT High Sensitivity Troponin-I results should be used in conjunction with other diagnostic information such as ECG, clinical observations and information, and patientsymptoms to aid in the diagnosis of [place]. XR ABDOMEN/KUB 1 VIEW [id number] 18:54:45 [facility] : 1975 Sex: FTECHNIQUE: XR ABDOMEN/KUB 1 VIEW PORTABLEINDICATION: corpak placement.COMPARISON: 10/29/2022FINDINGS:Feeding tube tip projecting over the body of the stomach. No specificevidence for bowel obstruction. Cholecystectomy clips are noted. Supineradiographs are insensitive for detection of free intraperitoneal ai r.IMPRESSION:Feeding tube tip projects over the body of the stomach.Electronically Signed By: Mo Soares10/30/2022 18:56 CDTWorkstation Name: [id number] SENSITIVITY TROPONIN [id number] 17:30:01 Test Item Value Reference Range Interpretation Comments HIGH SENSITIVITY 123 pg/ml See_Comment H [Automated message] TROPONIN I (test code The sy stem which = [id number]) generated this result transmitted ref erence range: <=17. Th e reference range was not used to int erpret this result as normal/abnormal . Silk Brusher ID - BSThe GENERAL FARM MANAGER STAT High Sensitivity Troponin-I results should be used in conjunctionwith other diagnostic information such as ECG, clinical observations and information, and patient symptoms to aid in the diagnosis of NJ.LACTIC ACID, [id number] 17:25:59 Test Item Value Reference Range Interpretation Comments LACTATE BLOOD ARTERIAL (2) 1.0 mmol/L 0.5-2.0 (BEAKER) (test code = 2874) Silk Brusher ID - [id number] 17:21:36 Test Item Value Reference Range Interpretation Comments SODIUM (BEAKER) (test code = 381) 136 meq/L 136-145 Silk Brusher ID - ADMINBLOOD GAS, [id number] 14:46:08 Test Item Value Reference Range Interpretation [...] FIO2 (BEAKER) (test code = 1819) 100.0 [id number] 12:47:53 Test Item Value Reference Range Interpretation Comments SODIUM (BEAKER) (test code = 381) 137 meq/L 136-145 Silk Brusher ID - JSLACTIC ACID, [id number] 12:47:37 Test Item Value Reference Range Interpretation Comments LACTATE BLOOD 2.3 mmol/L 0.5-2.0 H Specimen sligh tly ARTERIAL (2) (BEAKER) hemoly zed (test code = 2874) Silk Brusher ID - JSBLOOD GAS, [id number] 12:23:19 Test Item Value Reference Range Interpretation [...] FIO2 (BEAKER) (test code = 1819) 100.0 [id number] 11:15:25 Test Item Value Reference Range Interpretation Comments PROCALCITONIN (BEAKER) (test code 0.05 ng/mL <0.05 H = 3036) SEPSIS RISK (ng/mL)Low: 0.05-0.50Intermediate: 0.51-2.00High: >=2.01HIGH SENSITIVITY TROPONIN [id number] 11:10:59 Test Item Value Reference Range Interpretation Comments HIGH SENSITIVITY 139 pg/ml See_Comment H [Automated message] TROPONIN I (test code The sy stem which = [id number]) generated this result transmitted ref erence range: <=17. Th e reference range was not used to int erpret this result as normal/abnormal . Silk Brusher ID - JSThe GENERAL FARM MANAGER STAT High Sensitivity Troponin-I results should be used in conjunctionwith other diagnostic information such as ECG, clinical observations and information, and patient symptoms to aid in the diagnosis of NJ.XR CHEST 1 VIEW PORTABLE / [id number] 10:47:01 [facility] : 1975 Sex: FCLINICAL HISTORY: desaturationTECHNIQUE: 1 view of the chest.COMPARISON: 10/29/2022IMPRESSION:ETT no longer seen. New feeding tube below the diaphragm. Right centralline remains in the right atrium. There are mildly increased bilaterallower lung airspace opacities with blunting of both costophrenic angles.The cardiomediastinal silhouette is magnified by technique.Electronically Signed By: Yeyo Mills10/30/2022 10:49 CDTWorkstation Name: [id number] BRAIN WITHOUT IV [id number] 09:21:03 [facility] : 1975 Sex: FCT BRAIN [...] Signed By: Luís Mclain10/30/2022 09:23 CDTWorkstation Name: [id number] 04:21:01 Test Item Value Reference Range Interpretation Comments PHOSPHORUS (BEAKER) (test code = 3.2 mg/dL 2.3-4.7 604) Silk Brusher ID - EMBASIC METABOLIC [id number] 04:21:00 Test Item Value Reference Range Interpretation [...] not appl icable for dialysis patien ts Silk Brusher ID - [id number] 04:21:00 Test Item Value Reference Range Interpretation Comments MAGNESIUM (BEAKER) (test code = 1.7 mg/dL 1.6-2.6 627) Silk Brusher ID - EMCBC W/PLT COUNT & AUTO [id number] 03:30:03 Test Item Value Reference Range Interpretation [...] 0.00-1.00 PERCENT (BEAKER) (test code = 2801) [id number] 00:34:48 Test Item Value Reference Range Interpretation Comments SODIUM (BEAKER) (test code = 381) 137 meq/L 136-145 Silk Brusher ID - ADMINXR ABDOMEN/KUB 1 VIEW [id number] 18:55:43 [facility] : 1975 Sex: FTECHNIQUE: XR [...] Signed By: Mo Soares10/29/2022 18:57 CDTWorkstation Name: [id number] 2022-10-29 18:31:20 Test Item Value Reference Range Interpretation Comments SODIUM (BEAKER) (test code = 381) 138 meq/L 136-145 Silk Brusher ID - ADMINCREATININE, RANDOM [id number] 15:21:04 Test Item Value Reference Range Interpretation Comments CREATININE URINE (BEAKER) (test 24.5 mg/dL code = 375) Reference Range: No NormalsOperator ID - ADMINRAPID DRUG SCREEN, [id number] 14:06:15 Test Item Value Reference Range Interpretation [...] situations. Chain of custody not maintained. Some abeq-yuw-jeciapw medications, as well as adulterants, may cause inaccurate results. Clinical correlation should be applied. A more comprehensive drug screen or confirmation of a detected drug may be performed upon request.Silk Brusher ID - JSOperator ID - [auto] HEMOGLOBIN [id number] 13:23:17 Test Item Value Reference Range Interpretation [...] 5.7- 6.4% indicates increased risk for diabetes (prediabetes)."Silk Brusher ID - ADMOperator ID - ADMCTA [id number] 13:16:45 [facility] GE[facility] : 1975 Sex: FCT BRAIN WITHOUT IV CONTRAST, CTA CAROTID, CTA BRAINBRAIN CT WITHOUT CONTRASTINDICATION: Unlisted Reason for Exam, intraparenchymal hematomaCOMPARISON: NoneTECHNIQUE:Rapid acquisition spiral images were obtained between the aortic archand the cranial vertex during intravenous contrast infusion toreconstruct axial images and angiographic 3D maximum intensityprojections (MIP). 3-D volumetric reformatted images were created at [employer] workstation. Precontrast images of the brain were [...] Signed By: Luís Mclain10/29/2022 13:18 CDTWorkstation Name: [id number] BRAIN WITHOUT IV [id number] 13:16:45 [facility] : 1975 Sex: FCT BRAIN WITHOUT IV CONTRAST, CTA CAROTID, CTA BRAINBRAIN CT WITHOUT CONTRASTINDICATION: Unlisted Reason for Exam, intraparenchymal hematomaCOMPARISON: NoneTECHNIQUE:Rapid acquisition spiral images were obtained between the aortic archand the cranial vertex during intravenous contrast infusion toreconstruct axial images and angiographic 3D maximum intensityprojections (MIP). 3-D volumetric reformatted images were created at [employer] workstation. Precontrast images of the brain were [...] Signed By: Luís Mclain10/29/2022 13:18 CDTWorkstation Name: [id number] 13:16[facility]45[facility] : 1975 Sex: FCT BRAIN WITHOUT IV CONTRAST, CTA CAROTID, CTA BRAINBRAIN CT WITHOUT CONTRASTINDICATION: Unlisted Reason for Exam, intraparenchymal hematomaCOMPARISON: NoneTECHNIQUE:Rapid acquisition spiral images were obtained between the aortic archand the cranial vertex during intravenous contrast infusion toreconstruct axial images and angiographic 3D maximum intensityprojections (MIP). 3-D volumetric reformatted images were created at [employer] workstation. Precontrast images of the brain were [...] Signed By: Luís Mclain10/29/2022 13:18 CDTWorkstation Name: [id number], QUANTITATIVE, [id number] 13:15:24 Test Item Value Reference Range Interpretation Comments GONADOTROPIN, CHORIONIC (HCG) QUANT < mIU/mL 0-10 (WESLEY) (test code = 649) Non- Females: <10 mIU/mL Females: Gestation Age Reference Range(mIU/mL) 0.2-1 Week 5-50 1-2 Weeks 50-500 2-3 Weeks 100-5,000 3-4 Weeks 500-10,000 4-5 Weeks 1,000-50,000 5-6 Weeks 10,000-100,000 6-8 Weeks 15,000- 200,000 2-3 Months 10,000-100,000 Silk Brusher ID - MARCOOSMOLALITY, [id number] 13:07:55 Test Item Value Reference Range Interpretation Comments OSMOLALITY URINE 529 mOsm/kg See_Comment [Automated message] (BEAKER) (test code = The sy stem which 614) generated this result transmitted ref erence range: 50-1,200 mOsm/kg. The reference range was not used to int erpret this result as normal/abnormal . UREA NITROGEN, RANDOM [id number] 12:57:04 Test Item Value Reference Range Interpretation Comments UREA NITROGEN URINE (BEAKER) (test 186 mg/dL code = 538) Reference Range: No NormalsOperator ID - JSSODIUM, RANDOM [id number] 12:57:03 Test Item Value Reference Range Interpretation Comments SODIUM URINE (BEAKER) (test code = 155 meq/L 243) Reference Range: No NormalsOperator ID - JSOSMOLALITY, [id number] 12:52:21 Test Item Value Reference Range Interpretation Comments OSMOLALITY, SERUM (BEAKER) (test 290 mOsm/kg 275-295 code = 615) [id number] 12:52:14 Test Item Value Reference Range Interpretation Comments SODIUM (BEAKER) (test code = 381) 140 meq/L 136-145 Silk Brusher ID - MARCOPREGNANCY SCREEN, [id number] 09:52:55 Test Item Value Reference Range Interpretation Comments TEST URINE (BEAKER) (test Negative Negative code = 583) BLOOD GAS, [id number] 08:02:40 Test Item Value Reference Range Interpretation [...] (BEAKER) (test code = 1819) 40.0 T4, [id number] 06:13:37 Test Item Value Reference Range Interpretation Comments FREE T4 (BEAKER) (test code = 655) 0.90 ng/dL 0.70-1.48 Silk Brusher ID - ADMINTSH/FREE T4 IF [id number] 05:34:42 Test Item Value Reference Range Interpretation Comments THYROID STIMULATING HORMONE 6.331 uIU/mL 0.350-4.940 H (BEAKER) (test code = 772) Silk Brusher ID - [id number] 05:26:57 Test Item Value Reference Range Interpretation Comments MAGNESIUM (BEAKER) (test code = 1.8 mg/dL 1.6-2.6 627) Silk Brusher ID - [id number] 05:26:57 Test Item Value Reference Range Interpretation Comments PHOSPHORUS (BEAKER) (test code = 3.0 mg/dL 2.3-4.7 604) Silk Brusher ID - MARCOCOMPREHENSIVE METABOLIC [id number] 05:26:56 Test Item Value Reference Range Interpretation [...] not appl icable for dialysis patien ts Silk Brusher ID - MARCOXR CHEST 1 VIEW PORTABLE / [id number] 05:03:50 [facility]IONR : 1975 Sex: FXR CHEST 1 VIEW [...] contours with cardiomegaly.Additional findings: None.Electronically Signed By: Jaizel Monte10/29/2022 05:05 CDTWorkstation Name: [id number] 04:56:04 Test Item Value Reference Range Interpretation Comments PARTIAL THROMBOPLASTIN TIME 30.4 seconds 22.5-36.0 (BEAKER) (test code = 760) PROTHROMBIN TIME/[id number] 04:55:22 Test Item Value Reference Range Interpretation Comments PROTIME (BEAKER) 13.6 seconds 11.9-14.2 (test code = 759) INR (BEAKER) (test 1.06 See_Comment [Automat ed message] code = 370) The system FOLUP generated this result transmitted ref erence range: <=5.90. The reference range was not used to int erpret this result as normal/abnormal . RECOMMENDED COUMADIN/WARFARIN INR THERAPY RANGESSTANDARD DOSE: 2.0 - 3.0 Includes: PROPHYLAXIS for venous thrombosis, systemic embolization; TREATMENT for venous thrombosis and/or pulmonary embolus.HIGH RISK: Target INR is 2.5-3.5 for patients with mechanical heart valves.CBC W/PLT COUNT & AUTO [id number] 04:50:18 Test Item Value Reference Range Interpretation [...] (BEAKER) (test code = 2801) BLOOD GAS, [id number] 04:03:20 Test Item Value Reference Range Interpretation [...] (BEAKER) (test code = 1819) 60.0 CALCIUM, [id number] 03:59:22 Test Item Value Reference Range Interpretation Comments CALCIUM IONIZED (BEAKER) (test 1.09 mmol/L 1.12-1.27 L code = 698) PH, BLOOD (BEAKER) (test code = 7.33 1810) Fungus culture + [id number] 08:28:10 Test Item Value Reference Range Interpretation Comments Result (test code = No fungus isolated in 6463-4) 28 days Fungus Smear (test No fungal elements seen code = 1406) [facility] [id number] 08:28:10 Test Item Value Reference Range Interpretation Comments CULTURE (BEAKER) (test No fungus isolated in code = 1095) 28 days FUNGUS SMEAR (BEAKER) No fungal elements seen (test code = 1406) [id number] 05:54:28 Test Item Value Reference Range Interpretation Comments MAGNESIUM (BEAKER) (test code = 1.9 mg/dL 1.6-2.6 627) Silk Brusher ID - [id number] 05:54:28 Test Item Value Reference Range Interpretation Comments PHOSPHORUS (BEAKER) (test code = 5.2 mg/dL 2.3-4.7 H 604) Silk Brusher ID - MARCOBASIC METABOLIC [id number] 05:54:27 Test Item Value Reference Range Interpretation [...] not appl icable for dialysis patien ts Silk Brusher ID - MARCOCBC W/PLT COUNT & AUTO [id number] 05:42:51 Test Item Value Reference Range Interpretation [...] PERCENT (BEAKER) (test code = 2801) CALCIUM, [id number] 05:36:04 Test Item Value Reference Range Interpretation Comments CALCIUM IONIZED (BEAKER) (test 1.12 mmol/L 1.12-1.27 code = 698) PH, BLOOD (BEAKER) (test code = 7.42 1810) Anaerobic [id number] 02:03:45 Test Item Value Reference Range Interpretation Comments Result (test code = No anaerobes isolated 6463-4) [facility] [id number] 02:03:45 Test Item Value Reference Range Interpretation Comments CULTURE (BEAKER) (test No anaerobes isolated code = 1095) STD Panel - CT/GC [id number] 17:37:44 Test Item Value Reference Interpretation Comments Range C. trachomatis NOT DETECTED RNA, TMA (test code = 7297301) N. gonorrhoeae NOT DETECTED REFERENCE RA NGE: NOT RNA, TMA (test DETECTED Meth odology: code = 3284754) Transcriptio n Mediated Amplification ( TMA)to detect RNA. The analytical perf ormance characteristics of thisassay, when used to test SurePat h(TM) specimens haveb een determined by [employer] Th e modificationsha ve not been cleared or approved by the FDA. This assayhas b een validated pursu ant to the CLIA regula tions andis used for clinical purpos es. For additional information, pl ease refer tohttps://educa tion.Gl[employer] estArganteal. com/faq /AXR395(This li nk is being provided for informational/e ducatio nal purposes on ly.) SUE (test code = Performing Lab SUE) *QDID [facility] [address] [place] [address] Sylvie Gresham MD, PhD [facility] CenterBASIC METABOLIC [id number] 16:40:09 Test Item Value Reference Range Interpretation [...] not appl icable for dialysis patien ts Silk Brusher ID - BSOsmolality, [id number] 12:43:16 Test Item Value Reference Range Interpretation Comments Osmolality, Ur (test code 245 See_Comment [ Automated message] = 2695-5) The system FOLUP generated this result transmitted ref erence range: 50-1,200 mOsm/kg mOsm/kg . The reference range was not used to int erpret this result as normal/abnormal . Lab Interpretation (test Normal code = 14007-8) [facility] CenterOSMOLALITY, [id number] 12:43:16 Test Item Value Reference Range Interpretation Comments OSMOLALITY URINE 245 mOsm/kg See_Comment [Automated message] (BEAKER) (test code = The sy stem which 614) generated this result transmitted ref erence range: 50-1,200 mOsm/kg. The reference range was not used to int erpret this result as normal/abnormal . Sodium, random [id number] 11:48:27 Test Item Value Reference Range Interpretation Comments Sodium Urine (test 82 meq/L code = 2955-3) SUE (test code = Reference Range: No SUE) NormalsOperator ID - ADMIN [facility] CenterUrea Nitrogen, random [id number] 11:48:27 Test Item Value Reference Range Interpretation Comments Urea Nitrogen, Ur 121 mg/dL (test code = 3095-7) SUE (test code = Reference Range: No SUE) NormalsOperator ID - ADMIN [facility] CenterODIUM, RANDOM [id number] 11:48:27 Test Item Value Reference Range Interpretation Comments SODIUM URINE (BEAKER) (test code = 82 meq/L 243) Reference Range: No NormalsOperator ID - ADMINUREA NITROGEN, RANDOM URINE 2022-08-10 11:48:27 Test Item Value Reference Range Interpretation Comments UREA NITROGEN URINE (BEAKER) (test 121 mg/dL code = 538) Reference Range: No NormalsOperator ID - ADMINCreatinine, random [id number] 11:48:26 Test Item Value Reference Range Interpretation Comments Creatinine, Ur 20.9 mg/dL (test code = 2161-8) SUE (test code = Reference Range: No SUE) NormalsOperator ID - ADMIN [facility] CenterCREATININE, RANDOM [id number] 11:48:26 Test Item Value Reference Range Interpretation Comments CREATININE URINE (BEAKER) (test 20.9 mg/dL code = 375) Reference Range: No NormalsOperator ID - ADMINWound culture + gram stain 2022-08-10 11:24:49 Test Item Value Reference Range Interpretation Comments Result (test code = No growth 6463-4) Gram Stain Result <1+ gram positive cocci (test code = 1123) in pairs [facility] CenterWOUND CULTURE + GRAM [id number] 11:24:49 Test Item Value Reference Range Interpretation Comments CULTURE (BEAKER) (test No growth code = 1095) GRAM STAIN RESULT 4+ WBCs (BEAKER) (test code = 1123) GRAM STAIN RESULT <1+ gram positive cocci (BEAKER) (test code = in pairs 31810) T4, [id number] 11:12:44 Test Item Value Reference Range Interpretation Comments FREE T4 (BEAKER) (test code = 655) 1.25 ng/dL 0.70-1.48 Silk Brusher ID - AAHAMIDOSMOLALITY, [id number] 11:11:51 Test Item Value Reference Range Interpretation Comments OSMOLALITY, SERUM (BEAKER) (test 271 mOsm/kg 275-295 L code = 615) TSH/FREE T4 IF [id number] 10:36:27 Test Item Value Reference Range Interpretation Comments THYROID STIMULATING HORMONE 10.385 uIU/mL 0.350-4.940 H (BEAKER) (test code = 772) Silk Brusher ID - [id number] 10:30:32 Test Item Value Reference Range Interpretation Comments CORTISOL, TOTAL (BEAKER) (test 11.9 ug/dL 3.7-19.4 code = 2755) Silk Brusher ID - AAHAMIDCT, DRAINAGE, SOFT TISSUE FLUID [id number] 09:56:00Reason for exam:->tubo-ovarian abscess [facility] 1975 Sex: [...] lower quadrant fluid collection. Signed: Nilo Whiteside [facility] Verified Date/Time: 08/10/2022 09:56:28 Reading Location: [address] Neuro Reading Room BASIC METABOLIC [id number] 06:16:41 Test Item Value Reference Range Interpretation [...] not appl icable for dialysis patien ts Silk Brusher ID - ADMINSpecimen slightly gaabkafPIOUPORCD4643-02-68 06:16:41 Test Item Value Reference Range Interpretation Comments MAGNESIUM (BEAKER) 1.9 mg/dL 1.6-2.6 Specimen slightly (test code = 627) hemolyzed Silk Brusher ID - ADMINCBC (HEMOGRAM ONLY)2022-08-10 05:54:45 Test [...] 0-0 CELLS (BEAKER) (test code = 413) [id number] 04:19:50 Test Item Value Reference Range Interpretation Comments MAGNESIUM (BEAKER) (test code = 1.3 mg/dL 1.6-2.6 L 627) Silk Brusher ID - MMBASIC METABOLIC [id number] 04:19:50 Test Item Value Reference Range Interpretation [...] not appl icable for dialysis patien ts Silk Brusher ID - MMSpecimen slightly ictericCBC (HEMOGRAM ONLY)2022-08-09 [...] (BEAKER) (test code = 413) BASIC METABOLIC [id number] 06:27:34 Test Item Value Reference Range Interpretation [...] not appl icable for dialysis patien ts Silk Brusher ID - DAMIÁN WSpecimen slightly ictericB-TYPE NATRIURETIC FACTOR (BNP) 2022-08-08 05:56:50 Test Item Value Reference Range Interpretation Comments B-TYPE NATRIURETIC PEPTIDE (BEAKER) 202 pg/mL 0-100 H (test code = 700) Silk Brusher ID - BSCBC (HEMOGRAM ONLY)2022-08-08 05:36:13 Test [...] (BEAKER) (test code = 413) BASIC METABOLIC [id number] 05:39:11 Test Item Value Reference Range Interpretation [...] not appl icable for dialysis patien ts Silk Brusher ID - ADMINSpecimen slightly ictericCBC (HEMOGRAM ONLY)2022-08-07 [...] 0-0 (BEAKER) (test code = 413) CT, [id number] 07:32:00Unlisted Reason for Exam - Click Yes and Enter Reason Below->NoProtocol Please Specify:->Standard ProtocolWill this procedure require oral contrast?->No [facility] : 1975 [...] MDReport Verified Date/Time: 08/06/2022 07:32:46 Reading Location: [facility] Diagnostic Imaging Reading Room - [place] [address]9 Pregnancy Screen, urine 2022-08-05 21:59:05 Test Item Value Reference Range Interpretation Comments Preg Test, Ur (test code = 2112-1) Negative Negative Lab Interpretation (test code = Normal 94375-9) [facility] CenterPREGNANCY SCREEN, [id number] 21:59:05 Test Item Value Reference Range Interpretation [...] CONCENTRATION Adequate (CELLAVISION)(BEAKER) (test code = 3438) Silk Brusher ID - Sal[place] comments: Slide comments:BASIC METABOLIC [...] not appl icable for dialysis patien ts Silk Brusher ID - ADMINSpecimen slightly ictericPROTHROMBIN TIME/[id number] 21:25:45 Test Item Value Reference Range Interpretation [...] mechanical heart valves.CBC W/PLT COUNT & AUTO [id number] 21:20:49 Test Item Value Reference Range Interpretation [...] (BEAKER) (test code = 413) Transthoracic echo [id number] 16:18:18Ejection FractionSLEH ECHO HEARTLAB MKCKESSON CPACSCHI St. [facility] CamarilloBASIC METABOLIC [id number] 05:26:56 Test Item Value Reference Range Interpretation [...] not appl icable for dialysis patien ts Silk Brusher ID - MMSpecimen slightly ictericCBC (HEMOGRAM ONLY)2022-08-03 [...] CONCENTRATION Decreased (CELLAVISION)(BEAKER) (test code = 3438) Silk Brusher ID - StanleyUser comments: Slide comments:CBC W/PLT COUNT & AUTO [id number] 14:52:12 Test Item Value Reference Range Interpretation [...] (BEAKER) (test code = 413) BASIC METABOLIC [id number] 13:40:34 Test Item Value Reference Range Interpretation [...] not appl icable for dialysis patien ts Silk Brusher ID - ADMINSpecimen moderately ictericMYOCARD IMAGING, MULTI, PHARM, [id number] 15:12:00Unlisted Reason for Exam - Click Yes and Enter Reason Below->NoPR[facility]: LAW IVÁNKRISTI Cabello : 1975 Sex: FFINAL REPORT PROCEDURE: MYOCARDIAL PERFUSION SPECT IMAGING (Rest/Stress)CPT CODE: 64835 INDICATION: Cardiac screening, high CAD risk CARDIOVASCULAR [...] no prior study for comparison. Signed: Robbin Cernaeport Verified Date/Time: 08/01/2022 15:12:23 HEMOGLOBIN A1C 2022-08-01 13:52:52 Test Item Value Reference Range Interpretation Comments HEMOGLOBIN A1C 5.0 % See_Comment [Automated m essage] ELECTROPHORESIS ([employer]) The system which (test code = 3811) generated this result transmitted ref erence range: <=5.6%. The reference range was not used to int erpret this result as normal/abnormal . "The A1c is measured using a NGSP-certified method. HbA1c value equal to or greater than 6.5% as thediagnosis cutoff for diabetes. An HbA1c value of 5.7- 6.4% indicates increased risk for diabetes (prediabetes)."Silk Brusher ID - ADM (CELLAVISION MANUAL DIFF)2022-08-01 08:26:35 [...] CONCENTRATION Decreased (CELLAVISION)(BEAKER) (test code = 3438) Silk Brusher ID - Remy Dato-onUser comments: Slide comments:CBC W/PLT COUNT & AUTO [id number] 08:26:34 Test Item Value Reference Range Interpretation [...] (BEAKER) (test code = 413) HCG, QUANTITATIVE, [id number] 05:48:18 Test Item Value Reference Range Interpretation Comments GONADOTROPIN, CHORIONIC (HCG) QUANT < mIU/mL 0-10 (BEAKER) (test code = 649) Non- Females: <10 mIU/mL Females: Gestation Age Reference Range(mIU/mL) 0.2-1 Week 5-50 1-2 Weeks 50-500 2-3 Weeks 100-5,000 3-4 Weeks 500-10,000 4-5 Weeks 1,000-50,000 5-6 Weeks 10,000-100,000 6-8 Weeks 15,000- 200,000 2-3 Months 10,000-100,000 Silk Brusher ID - DBBASI METABOLIC PANEL 2022-08-01 05:41:39 [...] not appl icable for dialysis patien ts Silk Brusher [employer] WSpecimen moderately [id number] 05:41:38 Test Item Value Reference Range Interpretation Comments MAGNESIUM (BEAKER) (test code = 1.7 mg/dL 1.6-2.6 627) Silk Brusher [employer] [id number] 05:41:38 Test Item Value Reference Range Interpretation Comments PHOSPHORUS (BEAKER) (test code = 3.0 mg/dL 2.3-4.7 604) Silk Brusher [employer] WPT/[id number] 05:39:59 Test Item Value Reference Range Interpretation [...] 2.5-3.5 for patients with mechanical heart valves.LIPID [id number] 22:24:08 Test Item Value Reference Range Interpretation [...] Borderline 130-159 High 160-189 Very High >=190 Silk Brusher ID - CAYZVE845Kvonwgjd ID - FOVZSF487Gevxuccm ID - SCCIHL831Dcgjdfxh slightly icteric U/S, ENDOVAGINAL (EV)2022-07-31 14:38:00Reason for exam:->concern for TOA [facility] MIN[facility] : 1975 Sex: FFINAL REPORT [...] No free fluid. IMPRESSION: No definite tubo-ovarian abscessis seen on this ultrasound. The tubular peripherally enhancing structure and likely abscesses eitherwithin or adjacent to the ovary on the prior CT are not confidently visualized on this ultrasound. An anechoic structure in the left ovary has an appearance most like a dominant follicle. If the patient is worsening clinically, consider a repeat CT. If the patient is improving clinically, consider continued follow-up imaging with ultrasound. Signed: Shauna Duran MDReport Verified Date/Time: 07/31/2022 14:38:44 U/S, [id number] 14:38:00Reason for exam:->concern for TOA [facility] : 1975 [...] MDReport Verified Date/Time: 07/31/2022 14:38:44 U/S, DUPLEX, [id number] 14:38:00 [facility] IV[facility]N GEETHA L : [...] 07/31/2022 14:38:44 CBC W/PLT COUNT & AUTO [id number] 03:57:39 Test Item Value Reference Range Interpretation [...] H PERCENT (BEAKER) (test code = 2801) [id number] 03:56:52 Test Item Value Reference Range Interpretation Comments MAGNESIUM (BEAKER) (test code = 1.5 mg/dL 1.5-3.0 627) Silk Brusher ID - SOSC69Ijsabsst ID - MZIC58Gjighrxx ID - MXZS18Adosknwh ID - ZNMP04 BASIC METABOLIC [id number] 03:55:31 Test Item Value Reference Range Interpretation [...] not appl icable for dialysis patien ts Silk Brusher ID - WCFI81Jvuusvsw ID - DXOU43Wutrndbk ID - DGKZ24Jsqeedwu ID - AWVL71Llzmosah ID - RLRP12Koxapufm ID - QOYE06Kropoist ID - LNUF86Faqkncgi ID - UYCM38Jekvrfos ID - CSPL89Prejrphf slightly wodynhpLKNPYMCOTB3189-85-66 03:54:07 Test Item Value Reference Range Interpretation Comments PHOSPHORUS (BEAKER) (test code = 4.0 mg/dL 2.5-4.5 604) Silk Brusher ID - [id number] 18:37:08 Test Item Value Reference Range Interpretation Comments MAGNESIUM (BEAKER) (test code = 1.6 mg/dL 1.5-3.0 627) Silk Brusher ID - AHIIM202Axgiqenu ID - AXZBH025Gjuoghqo ID - BWABY937Zxhcokxs ID - TSZGU854YWJ, CHEST, 1 VIEW, NON [id number] 16:51:00Reason for exam:->SOB, wheezingShould this be performed at the bedside?->Yes [facility] IV[facility]N GEETHA SORENSENETTE : 1975 Sex: FFINAL REPORT RAD, CHEST, 1 VIEW, NON DEPT TECHNIQUE: Frontal view(s) of the chest. INDICATION: SOB, wheezing COMPARISON: None FINDINGS/IMPRESSION: Lines/Tubes: None Lungs/pleura: No consolidation. Mild perihilar prominence with mild interstitial opacities, may represent mild edema. No pleural effusion. No pneumothorax. Heart and Mediastinum: Unremarkable. Soft Tissues and Bones: Unremarkable. Signed: Sarah Carreraepramirez Verified Date/Time: 07/30/2022 16:51:52 Reading Location: [facility] Radiology Reading Room BASI METABOLIC [...] not appl icable for dialysis patien ts Silk Brusher ID - TYTTM378Hijeseeg ID - PPTMH824Caqylott ID - SNKHQ409Vwgigtnz ID - AZGCV338Tugmsonm ID - NQRMT438Eipaxvog ID - QGSTP088Baxpyrnt ID - PWQRF321Pmcnqfdz ID - EZLEC322Qevhyixs ID - PSEYK240Paoitaht ID - JYUOA908Lcqdffvk ID - XYWVB375Coczpdxl ID - EADNX496ULNCGKAQWYH TIME/INR 2022-07-30 16:00:01 Test Item Value Reference [...] mechanical heart valves.CBC W/PLT COUNT & AUTO [id number] 15:52:31 Test Item Value Reference Range Interpretation [...] PERCENT (BEAKER) (test code = 2801) TISSUE [id number] 12:09:00Surgical Pathology Report Case: [id number] Authorizing Provider: Trudy James MD Collected: 02/17/2019 1126 Ordering Location: [address] Received: 02/17/2019 1147 Service Pathologist: Angela Beach MD Specimen: Gallbladder A. GALLBLADDER, CHOLECYSTECTOMY: - CHRONIC CHOLECYSTITIS WITHCHOLELITHIASIS. Signing Pathologist Direct Phone Line: [phone] signed by Angela Beach MD on 02/19/2019 at 12:09 [id number] renal mass Gallbladder Received in formalin labeled [...] trabeculated. The wall measures 0.2 cm thick. Medical Facilities Section Director sections are submitted in A1-A2, with the inked proximalmargin is A1. PA/ew Performed.[facility], Department of Pathology, [address] [place] [address], HstpepGarden Grove [facility], Department of Pathology, [address] [place] [address], HzsauaRedlands Community Hospital, Department of Pathology, [address] [place] [address], VWP W/PLT COUNT & AUTO [id number] 07:03:00 Test Item Value Reference Range Interpretation [...] (BEAKER) (test code = 2801) BASIC METABOLIC [id number] 06:57:00 Test Item Value Reference Range Interpretation [...] APPLICABLE FOR DIALYSIS PATIEN TS. HEPATIC FUNCTION [id number] 06:57:00 Test Item Value Reference Range Interpretation [...] (test code = 347) hemolyzed HEPATIC FUNCTION [id number] 06:57:00 Test Item Value Reference Range Interpretation [...] 72 U/L 6-55 H 347) BASIC METABOLIC [id number] 06:57:00 Test Item Value Reference Range Interpretation [...] PATIEN TS. CBC W/PLT COUNT & AUTO [id number] 06:28:00 Test Item Value Reference Range Interpretation [...] PERCENT (BEAKER) (test code = 2801) SCREEN, [id number] 07:28:00 Test Item Value Reference Range Interpretation Comments TEST URINE (BEAKER) (test Negative code = 583) [id number] 07:28:00 Test Item Value Reference Range Interpretation Comments MAGNESIUM (BEAKER) 2.0 mg/dL 1.6-2.6 Specimen moderately (test code = 627) hemolyzed [id number] 07:28:00 Test Item Value Reference Range Interpretation Comments PHOSPHORUS (BEAKER) 4.0 mg/dL 2.3-4.7 Specimen moderately (test code = 604) hemolyzed BASIC METABOLIC [id number] 07:28:00 Test Item Value Reference Range Interpretation [...] APPLICABLE FOR DIALYSIS PATIEN TS. HEPATIC FUNCTION [id number] 07:28:00 Test Item Value Reference Range Interpretation [...] Specimen moderately (test code = 347) hemolyzed [id number] 07:28:00 Test Item Value Reference Range Interpretation Comments LIPASE (BEAKER) (test code = 749) 31 U/L 8-78 CBC W/PLT COUNT & AUTO [id number] 07:10:00 Test Item Value Reference Range Interpretation [...] (BEAKER) (test code = 2801) U/S, ABDOMINAL, [id number] 23:50:00Abdomen limited area? Add comment if clarification [...] Date/Time: 02/15/2019 23:50:53 URINALYSIS W/ REFLEX URINE [id number] 22:43:00 Test Item Value Reference Range Interpretation [...] code = 516) SOURCE(BEAKER) (test code = 2159) HEPATIC FUNCTION [id number] 17:03:00 Test Item Value Reference Range Interpretation [...] Specimen slightly (test code = 347) hemolyzed [id number] 16:00:00 Test Item Value Reference Range Interpretation Comments MAGNESIUM (BEAKER) 2.1 mg/dL 1.6-2.6 Specimen slightly (test code = 627) hemolyzed BASIC METABOLIC [id number] 16:00:00 Test Item Value Reference Range Interpretation [...] 697) EGFR (BEAKER) (test 70 mL/min/1.73 ESTIMA MARIKE GFR IS code = 1092) sq m NOT ACCURATE CREATININE CLEARANCE IN PREDICTING GLOMERULAR FILTRATION RATE . ESTIMATED GFR I S NOT APPLICABLE FOR DIALYSIS PATIEN TS. GAMMA GLUTAMYL TRANSFERASE (GGT)2019-02-15 16:00:00 Test Item Value Reference Range Interpretation Comments GAMMA GLUTAMYL 149 U/L 9-64 H Specimen slig htly TRANSFERASE (BEAKER) hemolyz ed (test code = 364) PROTHROMBIN TIME/[id number] 15:31:00 Test Item Value Reference Range Interpretation [...] is 2.5-3.5 for patients wiht mechanical heart valves.[id number] 15:31:00 Test Item Value Reference Range Interpretation Comments PARTIAL THROMBOPLASTIN TIME 31.4 seconds 22.5-36.0 (BEAKER) (test code = 760) CBC W/PLT COUNT & AUTO [id number] 15:14:00 Test Item Value Reference Range Interpretation [...] Consult Notes Date/Time Note Provider Source 2022-11-28 7809-90-53C82:23:09Associated Patrick Wallace OT [facility] 10:23:09 Order(s): CONSULT ADULT OCCUPATIONAL THERAPY OT GENERAL EVALUATIONConsult received via [employer], EMR reviewed and evaluation completed 11/28/22. Patient referred to occupational therapy for evaluation and treatment. Patient is 47 year old female with chest pain, NSTEMI. 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 75330-4Hbfacdl hrusVN8589-73-81G97:15:28Consult noteTXT1.2.840.762433.1.13.104.2.7.2 .772326|[id number] for patient xmlp99476-6Kakkyey koixGG165018396Zrfezu C Lawas [address] Weeks [id number] RQXLFNLRSPSJRVSRAIZPQC7741-03-53R59: 15:281.2.840.635858.1.72.3.15|1.2.84 0.868957.1.13.104.2.7.2.727879_18983 11103 2022-11-28 1524-14-26Y73:45:00Associated Savanna Juarez PT [facility] 09:45:00 Order(s): CONSULT ADULT PHYSICAL THERAPY Patient [...] setting of methamphetamine use), CAD c/b unspecified [place] (02/2022 per CareEverywhere), HFpEF, hypertension, hyperlipidemia, COPD, GERD, and seizure disorder (not on medications) presenting as a transfer from [facility] for NSTEMI. Troponin peaked [...] setting of methamphetamine use), CAD c/b unspecified [place] (02/2022 per CareEverywhere), HFpEF, hypertension, hyperlipidemia, COPD, GERD, and seizure disorder (not on medications) presenting as a transfer from [facility] for NSTEMI. Troponin peaked [...] a SS house, and sisterDME: Wheel Chair q0Zrwqz level of Mobility: requires assistance with transfers, [...] denies pain before and after sessionCOMMUNICATIONPrimary Language: Azeri Able to Verbalize needs: Yes Vision:good; no [...] Time in Minutes: 33 minSavanna Juarez PT, DPTUnShannon Medical Center SouthRehabilitation Services A physical therapy evaluation of high [...] clinical presentation with unstable and unpredictable characteristics 42374-5Uvaupwg xpnvYM8615-45-39S99:53:18Consult noteTXT1.2.840.513614.1.13.104.2.7.2 .729802|[id number] for patient gtkl14787-9Obyrlud [id number] Pallera [address][id number] NEHWGXESXQAGYYVYABQJOT1453-19-63R06: 53:181.2.840.586478.1.72.3.15|1.2.84 0.938637.1.13.104.2.7.2.727879_18983 57797 2022-11-25 8689-18-70N73:49:18Associated PN-NEUROLOGY [facility] 18:49:18 Order(s): CONSULT NEUROLOGY STROKE SERVICE CONSULTDATE [...] 75 mg Oral DAILY 75 mg at 11/25/22 09 FENTanyl PF (SUBLIMAZE (PF)) injection 25 mcg 25 mcg Slow IV Push Q3HPRN heparin (1,000 unit/mL, 10 mL vial) for Rebolusing 3,000 Units Slow IV Push FOR REBOLUSING heparin 25,000 Units/250 mL (Premixed Bag) in D5W 0-2,750 Units/hr IV Infusion TITRATE 6 mL/hr at 11/25/229 600 Units/hr at 11/25/221828 ipratropium-albuteroL (DUONEB) 0.5 mg-3 mg(2.5 mg base)/3 [...] with Dr. Rivera, Neurology Faculty Stroke pager: [phone] Shahnaz Borges, MDPGY-4, NeurologyPager: [phone] signed by Romaine Rivera MD at 11/26/2022 [...] reported) and/or communicating results to the patient/family/caregiver. 72547-0Cperdac [id number], Hashem1.2.840.998973.1.13.104.2.7.2. 581765FxqnojawEuxizsVT2698-71-41Z30: 21:11Consult noteTXT1.2.840.198822.1.13.104.2.7.2 .488281|[id number] for patient caas65710-7Rvnewqr qzmsDRXP-PQYAJNWFWKB-NOPFAVUQJESAEZZ [address] Pl[id number] OFDOYWYNLCOIYZTLPQGSLX1452-81-36X35: 21:111.2.840.161235.1.72.3.15|1.2.84 0.605310.1.13.104.2.7.2.727879_18956 03159 2022-11-25 7057-75-63L17:00:00Associated Analy Caceres [facility] 18:00:00 Order(s): CONSULT PS PASTORAL [place] CARE Engraving Patternmaker visited with patient in response to consult for pastoral care and support. Patient was awake and acknowledged meter inspector's presence. Pt was alone in room. The Pt said she was of Anabaptism nicole. The PT. Expressed to the Engraving Patternmaker of some fear,about her upcomming surgery that going to be done on her heart.Pt asked the Engraving Patternmaker to pray for her and for God to give her peace. The Engraving Patternmaker provided spiritual support through prayer of healing, peace and comfort. Engraving Patternmaker provided pastoral presence, and validated feelings. Pastoral care will continue to follow up as needed. Rev.Analy Ferro [facility] Department of Pastoral CarePh: [phone]: [phone] 34028-8Rjjxqza szrhNA6425-33-36R86:31:33Consult noteTXT1.2.840.050990.1.13.104.2.7.2 .807101|[id number] for patient sohi95544-2Lrrcoph hqolKZ263231704Jvfuvdo M Swathi[address] Nz[id number] ZKVAWHXDOTSZEZEECUOHCW7914-68-50H13: 31:331.2.840.696759.1.72.3.15|1.2.84 0.111401.1.13.104.2.7.2.727879_18956 84193 2022-11-25 3741-08-11E59:53:13Associated PED-PEDIATRICS [facility] 10:53:13 Order(s): CONSULT ALLERGY ALLERGY & IMMUNOLOGY CONSULT NOTEDATE OF SERVICE: 11/25/22REASON FOR CONSULT: Aspirin allergyHPI: Patient is a 47 year old female with a past medical history significant for recent hemorrhagic stroke (10/29/22; 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 - Plan also explained to via cape verdean translatorPatient seen with Dr. Magaña. Thank you for this consult. We will continue to follow the patient peripherally. Please do not hesitate to reach out to the on-call fellow with additional questions or concerns. Bere Arroyo, [facility] HOSPITALllergy and Immunology Fellow, PGY-4 ssociated attestation - [...] see the fellow's note for additional details. 05171-7Hwfudio [id number] Alexandra1.2.840.876616.1.13.104.2.7.2.8 21808LzexMoaxpVS3463-62-55M51:58:19C onsult noteTXT1.2.840.893872.1.13.104.2.7.2 .465474|[id number] for patient vtfh59153-5Ieyyrje jwmnGVNUI-ESFMOCLMVWUZH-QLIQGSMBZEXB [facility] - [address] Vl[id number] MOWGMTCQMIDBFPZOPSYHEL5436-22-09S80: 58:191.2.840.370717.1.72.3.15|1.2.84 0.073474.1.13.104.2.7.2.727879_18954 88468 2022-11-24 5120-41-51Y41:08:12Associated NS-NEUROLOGICAL [facility] 16:08:12 Order(s): CONSULT SURGERY NEUROSURGERY NEUROSURGERY CONSULTATION HISTORY AND PHYSICALAttending Neurosurgeon: Dr. 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), CAD c/b unspecified [place] (02/2022 [facility]), HFpEF, hypertension, hyperlipidemia, COPD, GERD, and seizure disorder (not on medications) presenting as a transfer from [facility] for NSTEMI currently on [...] 100% 100% Weight: Height: Awake, alert, oriented s1TXRTV bilaterally at 3mmEOMI bilaterallySlight left lower facial [...] setting of methamphetamine use), CAD c/b unspecified [place] (02/2022 [facility]), HFpEF, hypertension, hyperlipidemia, COPD, GERD, and seizure disorder (not on medications) presenting as a transfer from [facility] for NSTEMI currently on heparin drip. NSGY consulted for recs regarding heparin in light of recent hemorrhagic stroke. Pt at neurologic baseline s/p stroke.Recommendations:No neurosurgical interventionPlease consult neurology for management and recommendations of anticoagulation w/ hx of hemorrhagic strokeWill sign off at this timeChflory White MDNeurosurgery ServiceFor inquiries please page [phone] signed by Burton Howell MD at 11/25/2022 12:23 PM CDTAssociated attestation - Burton Howell MD - 11/25/2022 12:23 PM CDT I personally evaluated and am primary in decision making on, Geetha Minor, and I agree with the documentation by Sinan White MD,neurosurgery resident.16771-4Pstjsyz [id number], Rudy P1.2.840.704482.1.13.104.2.7.2.00232 5HemxvdWbsjZZH2851-97-01A05:23:14Con sult noteTXT1.2.840.082697.1.13.104.2.7.2 .932189|[id number] for patient zgng55669-1Mhgzsay noteLNNS-NEUROLOGICAL SURGERYNS-NEUROLOGICAL SURGERY[address] Vp[id number] BZDBYAPPBOZIRZCAVMVHCX3085-67-62D53: 23:141.2.840.752833.1.72.3.15|1.2.84 0.778518.1.13.104.2.7.2.727879_18954 34799 History and Physical Notes Date/Time Note Provider Source 2022-11-24 11:33:08 1295-40-03T46:33:08Formatting of this note [facility] is different from the original.Images from the original note were not included.CCU History and Physical Date of Service: 11/24/2022 15:48 ICU day: Intubation Day: CHIEF COMPLAINT: Chest painHistory of Present IllnessGeetha Minor is a 47 year old female with a past medical history significant for recent hemorrhagic stroke (10/29/22; 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 On my [...] for amphetamines during her recent hospitalization.Workup at [facility] showed ST depression and TWI in [...] 112/69 Pulse: 57 56 56 59 Resp: 22 15 17 18 SpO2: 91% 100% 100% Weight: [...] normal right-sided strength and sensationLabs (pertinent only)/Imaging:TTE 8/17/23Summary The left ventricle is chamber size (by [...] 454 ms QTC Calculation(Bazett) 460 ms P Tigrett 19 degrees R Tigrett 64 degrees T Tigrett 254 degrees Normal sinus rhythm Possible Left [...] sedated at [facility] prior [facility], extubated on 10/30, required nicardipine gtt [...] care of her , she will need 08/10 assistance. UDS 10/29/22Assessment/Plan:Geetha Minor is a 47 [...] develop- Sedation/Analgesia: NoneRespCOPDHx tobacco abuse- DuoNebs prn- G2UAWcmfafczhbrpmeWALHCIMtckp painReported CAD HFpEFBradycardiaHTNHLDPatient presenting as a transfer from [facility] with NSTEMI. 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) Number of days: 0 Dispo: CCUPrognosis: GuardedCode Status: Maricarmen Willis, CHANTALEGY-3, Department of Internal Medicine ssociated attestation - Babak Parsons MD - 11/25/2022 3:30 PM CDT [...] ordering referrals and/or communicating with other health team primary care physician (when not separately reported), documenting clinical information in the electronic or other health record, and care coordination (not separately reported).- hemodynamically stable- Neurosurgery consult for systemic AC / DAPT in the future, given h/o ICH- allergy consult for ASA desensitizationJOSE Cierra ITURRIZAGA, MD, [facility], [facility], [facility], kent campust ProfessorCardiology, Advanced Heart Failure, LVAD & Transplant ServiceDate of service: [id number] and physical [id number]-Mztnnbgh, Jose C1.2.840.595615.1.13.104.2.7.2.736219Rgyus fjszg-WqxlcwxjWxauLAZ2185-61-10T15:30:41Hi story and physical noteTXT1.2.840.492496.1.13.104.2.7.2.06151 9|[id number] for patient waif13180-3Jwvnutu and physical noteLNUT[address] Sei[id number] HBWQVXTXMTNESWXF4922-51-67D46:30:411.2.840 .808257.1.72.3.15|1.2.840.382219.1.13.104. 2.7.2.727879_[id number]
[2023-02-03 21:41] LABS: Absolute Lymphocytes (CBC) 1.8 K/uL (0.7-4.9); Hematocrit 31.5 % (36.0-45.0); Lymphocytes % 27.5 % (15.3-44.8); MCV 91.3 fL (80-100); MPV 7.6 fL (7.6-11.3); Platelets 203 thou/uL (152-406); RBC Red Blood Cell Count 3.45 M/uL (3.86-4.86)
[2023-02-03 21:58] LABS: Potassium 3.1 mEq/L (3.5-5.1)
[2023-02-03 22:02] LABS: Troponin High Sensitivity 70.3 pg/mL (<58.9)
[2023-02-03] MEDS ORDERED: ONDANSETRON 4 MG/2 ML VIAL ONE (22:20)
[2023-02-03] MEDS ORDERED: MORPHINE 4 MG/ML SYR ONE (22:20)
--- NOTE | 2023-02-03 22:25 | RAD REPORT ---
EXAM DESCRIPTION: RAD - Chest Single View - 02/03/2023 10:09 pm CLINICAL HISTORY: CHEST PAIN Chest pain. COMPARISON: <Comparisons> FINDINGS: Portable technique limits examination quality. The lungs are grossly clear. The heart is mildly enlarged in size. No displaced fractures. IMPRESSION: No acute intrathoracic process suspected.
[2023-02-03] MEDS ORDERED: POTASSIUM 25 MEQ EFFERV TAB ONE (23:08)
[2023-02-03] MEDS ORDERED: NA CHLORIDE 0.9% 1,000 ML ONE (23:08)
--- NOTE | 2023-02-04 00:37 | EDPHYS ---
Physician Documentation [facility] Name: Geetha Khan Age: 47 yrs Sex: Female : 1975 Arrival Date: 02/03/2023 Time: 21:00 Bed 14 Private MD: ED Physician Russell Rodriguez HPI: 02/04 00:03 This 47 yrs old Female presents to ER via EMS with complaints of chest pain. sb4 01:06 The patient or guardian reports chest pain that is located primarily in the anterior sb4 chest wall, left. Onset: just prior to arrival. The pain does not radiate. Associated signs and symptoms: The patient has no apparent associated signs or symptoms. The chest pain is described as a heaviness. Modifying factors: The symptoms are alleviated by nothing. the symptoms are aggravated by nothing. The patient has experienced similar episodes in the past, chronically, today's symptoms are similar. Historical: - Allergies: 02/03 21:17 Aspirin; kl 21:17 CRANBERRY; kl 21:17 FISH PRODUCT DERIVATIVES; kl 21:17 GRAPEFRUIT; kl 21:17 mushrooms; kl - Home Meds: 21:17 amlodipine oral [Active]; atorvastatin oral [Active]; Dexamethasone Oral [Active]; kl lisinopril Oral [Active]; Metoprolol Tartrate Oral [Active]; - PMHx: 21:17 Asthma; Cerebrovascular accident; COPD; Hypertension; Myocardial infarction; Seizures; kl Thyroid problem; - Immunization history:: Adult Immunizations Flu vaccine is up to date. - Social history:: Smoking status: Patient reports the use of cigarette tobacco products, smokes one-half pack cigarettes per day. ROS: 02/04 01:06 Constitutional: Negative for fever, chills, and weight loss, sb4 Cardiovascular: Positive for chest pain, All other systems are negative, Exam: 01:06 Constitutional: This is a well developed, well nourished patient who is awake, alert, sb4 and in no acute distress. Head/Face: Normocephalic, atraumatic. Eyes: Extra-ocular motions intact. Periorbital areas with no swelling, redness, or edema. ENT: Mucous membranes moist. Cardiovascular: Regular rate and rhythm with a normal S1 and S2. Respiratory: Lungs have equal breath sounds bilaterally, clear to auscultation and percussion. No rales, rhonchi or wheezes noted. No increased work of breathing, no retractions or nasal flaring. Abdomen/GI: Soft, non-tender, no distension. Skin: Warm, dry with normal turgor. Normal color with no rashes, no lesions, and no evidence of cellulitis. MS/ Extremity: Pulses equal, no cyanosis. Neurovascular intact. Full, normal range of motion. Vital Signs: 02/03 21:00 BP 150 / 104; Pulse 69; Resp 18; Temp 97(O); Pulse Ox 99% on R/A; Height 5 ft. 4 in. ; kl 21:22 BP 140 / 102; kl 22:30 BP 133 / 93; Pulse 68; Resp 18; Pulse Ox 98% on R/A; kl 02/04 01:07 BP 138 / 89; Pulse 72; Resp 18; Pulse Ox 100% on R/A; kl MDM: 02/03 21:02 Patient medically screened. sb4 02/04 01:06 Differential diagnosis: chest wall pain, pleurisy, stable angina. The patient was not sb4 given aspirin in the Emergency Department. Not indicated due to patient's past medical history. Data reviewed: vital signs, nurses notes, EMS record, old medical records, prior admission notes, labs, cardiac catheterization lab test result(s), EKG, radiologic studies, I have discussed the patient's presentation/case with the attending Emergency Department Physician; and as a result, I will discharge patient. Consideration of Admission/Observation Escalation of care including admission/observation considered. Care significantly affected by the following chronic conditions: Hypertension, Chronic Obstructive Pulmonary Disease. Counseling: I had a detailed discussion with the patient and/or guardian regarding the historical points, exam findings, and any diagnostic results supporting the discharge/admit diagnosis, the presence of at least one elevated blood pressure reading (>120/80) during this emergency department visit, lab results, radiology results, the need for outpatient follow up, a accredited legal secretary, to return to the emergency department if symptoms worsen or persist or if there are any questions or concerns that arise at home, smoking cessation. ED course: patient has chronic chest pain, no new alarming symptoms today. she has been seen by cardiology recently and had negative cardiac catheterization. they have recommended medical management. troponin is mildly but chronically elevated without significant change after 3 hours. she is safe to discharge home. 02/03 21:02 Order name: Basic Metabolic Panel; Complete Time: 22:03 sb4 02/03 21:02 Order name: CBC with Diff; Complete Time: 21:46 sb4 02/03 21:02 Order name: Troponin HS; Complete Time: 22:03 sb4 02/03 23:25 Order name: Troponin High Sensitivity; Complete Time: 00:25 sb4 02/03 21:02 Order name: XRAY Chest (1 view); Complete Time: 22:25 sb4 02/03 21:02 Order name: EKG; Complete Time: 21:03 sb4 02/03 21:02 Order name: Cardiac monitoring; Complete Time: 21:24 sb4 02/03 21:02 Order name: EKG - Nurse/Tech; Complete Time: 21:24 sb4 02/03 21:02 Order name: IV Saline Lock; Complete Time: 21:24 sb4 02/03 21:02 Order name: Labs collected and sent; Complete Time: 21:24 sb4 02/03 21:02 Order name: O2 Per Protocol; Complete Time: 21:24 sb4 02/03 21:02 Order name: O2 Sat Monitoring; Complete Time: 21:44 sb4 EC/19 21:25 Rate is 70 beats/min. Rhythm is regular, Normal Sinus Rhythm. WA interval is normal at sb4 198 msec. QRS interval is normal at 100 msec. QT interval is normal at [address] changes noted. Clinical impression: Abnormal EKG without significant change and LVH. Interpreted by me. Reviewed by me. Administered Medications: 22:10 Drug: morphine IVP or IV 4 mg IVP once over 4 mins Route: IVP; Infused Over: 4 mins; kl Site: right antecubital; 22:12 Drug: Ondansetron IVP 4 mg IVP once; over 2 minutes Route: IVP; Site: right antecubital;kl 23:13 Drug: NS 0.9% IV 1000 ml IV at 1 bolus Per protocol; 1000 mL bolus Route: IV; Rate: 1 kl bolus; Site: right antecubital; 23:13 Drug: Potassium PO Effervescent Tablet 50 mEq PO once; dissolve in 4 ounces of water or kl juice Route: PO; Disposition Summary: 02/04/23 00:36 Discharge Ordered Notes: Location: Home sb4 Problem: an ongoing problem sb4 Symptoms: have improved sb4 Condition: Stable sb4 Diagnosis - Chest pain, unspecified sb4 Followup: sb4 - With: Emergency Department - When: As needed - Reason: Trouble breathing, Worsening of condition Discharge Instructions: - Discharge Summary Sheet sb4 - Nonspecific Chest Pain, Adult, Dhar-fs-Qcim sb4 Forms: - Medication Reconciliation Form sb4 - Thank You Letter sb4 - Antibiotic Education sb4 - Prescription Opioid Use sb4 - Patient Portal Instructions sb4 - Leadership Thank You Letter sb4 Addendum: 02/05/2023 10:38 I reviewed the patient's care provided by the Advanced Practice Provider and agree with e c2 the diagnosis and treatment plan. Signatures: Dispatcher [employer] Dhara Martinez RN RN kl Brown, Sophia, PA-C PA-C sb4 Russell Rodriguez MD MD ec2 Corrections: (The following items were deleted from the chart) 02/03 21:19 21:17 PMHx: CVA; Left sided deficits.; handy murrell
--- NOTE | 2023-02-04 00:37 | ER ---
Nurse's Notes [facility] Name: Geetha Khan Age: 47 yrs Sex: Female : 1975 Arrival Date: 02/03/2023 Time: 21:00 Bed 14 Private MD: Diagnosis: Chest pain, unspecified Presentation: 02/03 21:00 Chief complaint: Patient states: chest pain since 5 pm took 800 mg Motrin with o kl improvement. Coronavirus screen: Vaccine status: Patient reports being unvaccinated. Ebola Screen: Patient negative for fever greater than or equal to 101.5 degrees Fahrenheit, and additional compatible Ebola Virus Disease symptoms. Initial Sepsis Screen: Does the patient meet any 2 criteria? No. Patient's initial sepsis screen is negative. Does the patient have a suspected source of infection? No. Patient's initial sepsis screen is negative. Risk Assessment: Do you want to hurt yourself or someone else? Patient reports no desire to harm self or others. 21:00 [facility] 21:00 Acuity: CORRINA 3 kl Triage Assessment: 21:19 General: Appears in no apparent distress. comfortable, Behavior is calm, cooperative. kl Pain: Complains of pain in chest Pain does not radiate. Pain currently is 9 out of 10 on a pain scale. Quality of pain is described as aching. EENT: No deficits noted. Neuro: No deficits noted. Cardiovascular: Reports chest pain, Denies diaphoresis, lightheadedness, nausea, palpitations, shortness of breath, Rhythm is sinus rhythm. Respiratory: No deficits noted. GI: No deficits noted. No signs and/or symptoms were reported involving the gastrointestinal system. : No deficits noted. No signs and/or symptoms were reported regarding the genitourinary system. Musculoskeletal: left sided paralysis s/p CVA. Historical: - Allergies: 21:17 Aspirin; kl 21:17 CRANBERRY; kl 21:17 FISH PRODUCT DERIVATIVES; kl 21:17 GRAPEFRUIT; kl 21:17 mushrooms; kl - Home Meds: 21:17 amlodipine oral [Active]; atorvastatin oral [Active]; Dexamethasone Oral [Active]; kl lisinopril Oral [Active]; Metoprolol Tartrate Oral [Active]; - PMHx: 21:17 Asthma; Cerebrovascular accident; COPD; Hypertension; Myocardial infarction; Seizures; kl Thyroid problem; - Immunization history:: Adult Immunizations Flu vaccine is up to date. - Social history:: Smoking status: Patient reports the use of cigarette tobacco products, smokes one-half pack cigarettes per day. Screenin:21 [facility] ED Fall Risk Assessment (Adult) History of falling in the last 3 months, including since admission No falls in past 3 months (0 pts) Confusion or Disorientation No (0 pts) Intoxicated or Sedated No (0 pts) Impaired Gait Yes (1 pt) Mobility Assist Device Used No (0 pt) Altered Elimination No (0 pt) Score/Fall Risk Level 0 - 2 = Low Risk Oriented to surroundings, Maintained a safe environment. Abuse screen: Denies threats or abuse. Nutritional screening: No deficits noted. Tuberculosis screening: No symptoms or risk factors identified. Assessment: 21:22 Reassessment: see triage. 02/04 01:07 Reassessment: Patient appears in no apparent distress at this time. No changes from previously documented assessment. Patient is alert, oriented x 3, equal unlabored respirations, skin warm/dry/pink. Patient denies pain at this time. Patient states feeling better. Patient states symptoms have improved. Vital Signs: 02/03 21:00 BP 150 / 104; Pulse 69; Resp 18; Temp 97(O); Pulse Ox 99% on R/A; Height 5 ft. 4 in. ; 21:22 BP 140 / 102; kl 22:30 BP 133 / 93; Pulse 68; Resp 18; Pulse Ox 98% on R/A; 02/04 01:07 BP 138 / 89; Pulse 72; Resp 18; Pulse Ox 100% on R/A; ED Course: 02/03 21:01 Patient arrived in ED. as6 21:02 Kalli Bradshaw PA-C is PHCP. sb4 21:02 Russell Rodriguez MD is Attending Physician. sb4 21:15 Inserted saline lock: 22 gauge in right antecubital area, using aseptic technique. Blood collected. 21:17 Triage completed. 21:21 Arm band placed on right wrist. EKG completed in triage. Results shown to MD. 21:21 No provider procedures requiring assistance completed. 21:22 Patient has correct armband on for positive identification. Bed in low position. Call kl light in reach. Side rails up X2. Client placed on continuous cardiac and pulse oximetry monitoring. NIBP monitoring applied. 21:24 Basic Metabolic Panel Sent. kl 21:24 CBC with Diff Sent. kl 21:24 Troponin HS Sent. kl 22:11 XRAY Chest (1 view) In Process Unspecified. EDMS 22:14 Notified Nurse Practitioner and/or Physician Brake Repairer Railroad of a critical lab result(s), kl troponin 70.3. 02/04 00:36 Josse Olson MD is Referral Physician. sb4 01:08 IV discontinued, intact, bleeding controlled, No redness/swelling at site. Pressure kl dressing applied. Administered Medications: 02/03 22:10 Drug: morphine IVP or IV 4 mg IVP once over 4 mins Route: IVP; Infused Over: 4 mins; kl Site: right antecubital; 22:12 Drug: Ondansetron IVP 4 mg IVP once; over 2 minutes Route: IVP; Site: right antecubital;kl 23:13 Drug: NS 0.9% IV 1000 ml IV at 1 bolus Per protocol; 1000 mL bolus Route: IV; Rate: 1 kl bolus; Site: right antecubital; 23:13 Drug: Potassium PO Effervescent Tablet 50 mEq PO once; dissolve in 4 ounces of water or kl juice Route: PO; Outcome: 02/04 00:36 Discharge ordered by . sb4 01:08 Discharged to home via wheelchair, kl 01:08 Condition: stable 01:08 Discharge instructions given to patient, Instructed on discharge instructions, follow up and referral plans. Demonstrated understanding of instructions, follow-up care, 01:08 Patient left the ED. Signatures: Dispatcher [employer] EDAR Dhara East RN Florentin Orellana RN RN as6 Kalli Bradshaw, PA-C PA-C sb4 Corrections: (The following items were deleted from the chart) 02/03 21: 21:17 PMHx: CVA; Left sided deficits.; kl kl 22:14 22:13 Notified Nurse Practitioner and/or Physician Brake Repairer Railroad of a critical lab result(s), troponin 79.3 kl
[2023-02-04 01:17] VITALS: TEMP 97
[2023-02-04 01:21] VITALS: BP 138/89; O2SAT 100
--- NOTE | 2023-02-06 16:59 | EKG ---
Test Date: 2023-02-03 Test Time: 21:09:32 [employer] Work[employer]: HUSAM MEASUREMENT RESULTS: Intervals: Rate: 70 [place]: 198 QRSD: 100 QT: 424 QTc: 457 [place]: P: 18 [place]: 198 QRS: -10 T: 165 INTERPRETIVE STATEMENTS: Normal sinus rhythm Left ventricular hypertrophy with repolarization abnormality Abnormal ECG Compared to ECG 01/20/2023 20:57:24 No significant changes Electronically Signed On 02-06-23 16:53:18 [employer] by Josse Olson
== END 2023-02-04 01:08 | disposition home or self-care (01) ==
LOC: ER 21:00
DX: R07.89 Other chest pain (principal)
CPT/HCPCS: 36415; 71045; 80048; 84484; 85025; 93005; 96374; 96375; 99285; J2405; J7030

== ENCOUNTER 2023-02-06 20:17 | Emergency (ER) | payer SELFPAY ==
--- OUTSIDE RECORDS SUMMARY | 2023-02-06 20:29 | XMS REPORT | Continuity of Care Document ---
:1975 Author Organization [facility] t Address [address] [facility] [address] [place] [id number] Care Team Providers Name Role Phone No, Pcp [facility] Primary Care Physician Unavailable MIR ARITA Attending Clinician Unavailable JUJU TAI Attending Clinician Unavailable KATHY ZEPEDA Attending Clinician Unavailable MURRAY ELISE Attending Clinician Unavailable Caty Wang Attending Clinician Unavailable Doctor Unassigned, Morrison Attending Clinician Unavailable Desi Sotelo LVN Attending Clinician Babak Parsons MD Attending Clinician [phone] Ryne Yoder MD Attending Clinician Meghana Felix MD Attending Clinician RYNE YODER Attending Clinician Unavailable GOYO HANKINS Attending Clinician Unavailable Santiago Whiteside MD Attending Clinician [phone] Kathy Zepeda MD Attending Clinician Unavailable Bessy Shah MD Attending Clinician Juju Tai DO Attending Clinician Sonido ECHEVERRIA, Amanda Tejada Attending Clinician [phone] Juan J ECHEVERRIA, Mir Meeks Attending Clinician Merchant ECHEVERRIA, Goyo Attending Clinician Gosia DYER, Murray Attending Clinician Vijay Jenkins Attending Clinician KRISTIN SHAH Attending Clinician Unavailable Fredis ECHEVERRIA, Popeye In Attending Clinician Fredrick ECHEVERRIA, Aida Barreto Attending Clinician [phone] Yariel ECHEVERRIA, Clifton Negro Attending Clinician [phone] Debra ECHEVERRIA, Kristin Cano Attending Clinician [phone] CLIFTON DE LUNA Attending Clinician Unavailable Servando ECHEVERRIA, Les Attending Clinician Nena Waller MD Attending Clinician Matias ECHEVERRIA, Leonid Orr Attending Clinician DAYRON FOSTER Attending Clinician Unavailable Cristian ECHEVERRIA, Dayron Hogan Attending Clinician [phone] ZAIN SALAS Attending Clinician Unavailable AMANDA HEAD Admitting Clinician Unavailable Ryne Yoder MD Admitting [...] dical infarction infarction Br anch ) ) ICH ICH Disease Active [facility] (intracere (intracere 8-14 [facility] bral bral 00:00: Medical hemorrhage hemorrhage 00 Ce nter ) ) Acute Acute Disease Active [facility] respirator respirator 8-14 [facility] y failure y failure 00:00: Medi wale with with 00 Center hypoxia hypoxia Encephalop Encephalop Disease Active [facility] athy acute athy acute 8-14 [facility] kes 00:00: Medical 00 Center NIGEL (acute NIGEL (acute Disease Active [facility] kidney kidney 8-14 [facility] injury) injury) 00:00: Medical 00 Jeff Tubo-ovari Tubo-ovari Disease Active [facility] an abscess an abscess 5-21 [facility]es 00:00: Medical 00 Center Abdominal Abdominal Disease Recurre [facility] infection infection nce 5-16 [facility] 00:00: Medical 00 Jeff Pelvic Pelvic Disease Active [facility] abscess in abscess in 5-15 [facility] female female 00:00: Medical 00 Center Acute Acute Disease Active 2018-[address] [facility] cholecysti cholecysti 2-03 [facility]qra kes tis tis 00:00: Medical 00 Center Seizure Seizure Disease Recurre 2018-[address] [facility] disorder disorder nce 2 [facility] 00:[facility]: Medical 00 Center Calculus Calculus Disease Active 2018-03 [facility] 2 [facility] gallbladde gallbladde 00:00: Me dical r without r without 00 Cent er cholecysti cholecysti tis tis without without obstructio obstructio n n Transamini Transamini Disease Active 2018-[address] tis tis 2- [facility] 00:[facility]: Medical 00 Center Hypertensi Hypertensi Disease Active 2018- [facility] ve crisis ve crisis 2-02 [facility] 00:00: Medical 00 Center Anemia Anemia Disease Active 2018- [facility] 2-[facility] 00[facility] Medical 00 Center Thrombocyt Thrombocyt Disease Active 2018-[address] osis osis 2- [facility] 00[facility]: Medical 00 Center Hypertensi Hypertensi Disease Recurre 2018-[address] [facility] on on nce 2- [facility] 00:00: Medical 00 Center Allergies, Adverse Reactions, Alerts Allergy Allergy Status Severity Reaction(s) Onset Inactive Treating Comm ents Source Name Type Date Date Clinician CRANBERR DRUG Active Unknown-Cmnt 3-0 Un yoana Y INGREDI - ity of 00:00: [place] 00 Medical Branch GRAPEFRU DRUG Active Unknown-Cmnt 2022-0 Un yoana IT INGREDI 11-26 ity of 00:00: [place] 00 Medical Branch Cranberr Propensi Active Unknown - 3-0 Uni vers y ty to See comments [...] Active High Anaphylaxis 3-0 Univ ers INGREDI 9 ity of 00:00: [place] 00 Medical Branch FISH Drug Active Unknown-Cmnt 3-0 Univ ers CONTAINI Class 11-24 ity of NG 00:00: [place] PRODUCTS 00 Medical Branch MUSHROOM DRUG Active Unknown-Cmnt 3-0 Un yoana INGREDI 11-24 ity of 00:00: [place] 00 Medical Branch ASPIRIN Allergy Active High Anaphylaxis 2023-0 SLE H 5-15 00:00: 00 MUSHROOM Allergy Active High Anaphylaxis 2023-0 SL EH 5-15 00:00: 00 SHELLFIS Allergy Active High Anaphylaxis 2023-0 SL EH H 5-15 CONTAINI 00:00: [place] 00 PRODUCTS Aspirin Drug Active Anaphylaxis 2023-[address] [facility] Allergy 5-15 [facility] 00:00: Medical 00 Center Mushroom Drug Active Anaphylaxis 2023-[address] [facility] [address] Allergy 5-15 [facility] 00:00: Medical 00 Center Shellfis Drug Active Anaphylaxis 2023-[address] [facility] h Allergy 5-15 [facility] Containi 00:00: Medical ng 00 Center Products CRANBERR Allergy Active High Anaphylaxis 2019-1 SL EH Y 2- 00:00: 00 FISH Allergy Active High Swelling 2019- SLSL CONTAINI 2-01 NG 00:00: PRODUCTS 00 Cranberr Drug Active Anaphylaxis, 2019- [facility] y Allergy Hives, 2-01 [facility] Itching 00:00: Medical 00 Center Fish Drug Active Swelling 2018- [facility] Containi Allergy 2-01 [facility] ng 00:00: Medical Products 00 Center Social History Social Habit Start Date Stop Date Quantity Comments Source History [facility] Alcohol Std Drinks Medica l Center History [facility] Alcohol Comment Medical C enter History [facility] Transport Non-Med Medical Center Sexual orientation [facility] [place] [facility] Tobacco use and 2022-11-24 2022-11-24 Smokeless Universit y of exposure 00:00:00 00:00:00 tobacco non-user [facility] History of Social 2022-11-07 2022-11-[address] [facility] function 00:00:00 00:00:00 Medical Center History of tobacco 2022-11-03 Passive smoker Un iversity of use 00:00:00 [facility] History [facility] 2022-08-06 2022-08-[address] [facility] Transport Med 00:00:00 00:00:[address] [facility] 2022-08-06 2022-08-[address] [facility] Housing Unable to 00:00:00 00:00:00 Medical Center Pay History [facility] 2022-08-06 2022-08-[address] [facility] Housing Places 00:00:00 00:00:00 Medical Ce nter Lived History [facility] 2022-08-06 2022-08-[address] [facility] Housing Homeless 00:00:00 00:00:00 Medical Center Last Year Alcohol intake 2022-08-06 2022-08-06 Ex-drinker [facility] es 00:00:00 00:00:00 (finding) Medical Center Cigarettes smoked 2022-07-30 2022-07-[address] [facility] current (pack per 00:00:00 00:00:00 Medical Center day) - Reported Cigarette 2022-07-30 2022-07-[address] [facility] pack-years 00:00:00 00:00:00 Medical Center History [facility] 2019-02-15 2019-02-15 1 [facility] Alcohol Binge 00:00:00 00:00:[address] History [facility] 2019-02-15 2019-02-[address] Lulashanda Alcohol Frequency 00:00:00 00:00:00 Medical Center Sex [birth year] [facility] 00:00:00 00:00:00 Medical Center Smoking Status Start Date Stop Date Source Ex-smoker 2022-11-24 00:00:00 2022-11-24 [facility] [place] 00:00:00 Medical Branch Occasional tobacco 2022-07-30 00:00:00 [facility] smoker Center Medications Ordered Filled Start Stop Current Ordering Indication Dosage Frequency Signature Comments Components Source Medication Medication Date Date Medication? Clinician (SIG) Name Name QUEtiapine 2022-0 Yes 25mg Take 1 Unive rs 25 mg 9-14 tablet by ity of tablet 15:09: mouth in [place] [address] the Medical morning Branch and 1 tablet in the evening. furosemide 2023-0 Yes 20mg Take 1 Unive rs (LASIX) 20 9-14 tablet by ity of mg tablet 15:09: mouth in [place] [address] the Medical morning. Branch QUEtiapine 3-0 Yes 25mg Take 1 Unive rs 25 mg 9-14 tablet by ity of tablet 15:09: mouth in [place] [address] the Medical morning Branch and 1 tablet in the evening. furosemide 2023-0 Yes 20mg Take 1 Unive rs (LASIX) 20 9-14 tablet by ity of mg tablet 15:09: mouth in [place] [address] the Medical morning. Branch KCL 3-0 Yes 20meq 20 mEq, Univers (KLOR-CON 9-14 Oral, ity of M20) tablet 14:00: DAILY, [facility] 20 mEq 00 First dose Medical on [place] Branch 11/29/22 at 0900, Until Discontinu ed, Routine QUEtiapine 2023-0 Yes 25mg Take 1 Unive rs 25 mg 9-13 tablet by ity of tablet 21:49: mouth in [place] [address] the Medical morning Branch and 1 tablet in the evening. furosemide 2023-0 Yes 20mg Take 1 Unive rs (LASIX) 20 9-13 tablet by ity of mg tablet 21:49: mouth in [place] [address] the Medical morning. Branch QUEtiapine 2022- Yes 25mg Take 1 Unive rs 25 mg 11-28 tablet by ity of tablet 21:49: mouth in [place] [address] the Medical morning Branch and 1 tablet in the evening. furosemide 2022- Yes 20mg Take 1 Unive rs (LASIX) 20 11-28 tablet by ity of mg tablet 21:49: mouth in [place] [address] the Medical morning. Branch albuterol 2022- No 2{puff} 2 Puff, U nivers (VENTOLIN) 11-28 Inhalation it y of inhaler 2 20:59: 21:00 , [place] 1 [place] :[place] dose, On Wed Branch 11/28/22 at 1600, Routine magnesium [...] [place] 14 :00 bedtime. Medical Branch amLODIPine 2022- No 10mg Take 1 Univ ers 10 mg 11-28 tablet by ity of tablet 10:12: 00:00 mouth in [place] 07 :00 the Medical morning. Branch NIFEdipine 2022-2022- No 60mg Take 1 Univ ers ER 60 mg 11-28 tablet by ity o f tablet 10:12: 00:00 mouth in [place] 04 :00 the Medical morning. Branch metoprolol 2022-2022- No 50mg Take 1 Univ ers tartrate 11-28 tablet by ity o f (LOPRESSOR) 10:12: 00:00 [place] 50 mg 04 :00 the Medical tablet morning Branch and 1 tablet in the evening. amLODIPine 2022- Yes [id number] 2.5mg Take 1 Univers 2.5 mg 11-28 tablet by ity of tablet 00:00: mouth in [place] 00 the Medical morning. Branch metoprolol 3-0 Yes [id number] 12.5mg Take 0.5 Univers tartrate 25 9-13 tablets by it y of mg tablet 00:00: [place] the Medical morning Branch and 0.5 tablets in the evening. atorvastati 3-0 Yes [id number] 40mg Take 1 Univers n 40 mg 9-13 tablet by ity of tablet 00:00: mouth at [place] 00 bedtime. Medical Branch amLODIPine 3-0 Yes [id number] 2.5mg Take 1 Univers 2.5 mg 9-13 tablet by ity of tablet 00:00: mouth in [place] 00 the Medical morning. Branch metoprolol 3-0 Yes [id number] 12.5mg Take 0.5 Univers tartrate 25 9-13 tablets by it y of mg tablet 00:00: [place] the Medical morning Branch and 0.5 tablets in the evening. atorvastati 2022-0 Yes [id number] 40mg Take 1 Univers n 40 mg 9-13 tablet by ity of tablet 00:00: mouth at [place] 00 bedtime. Medical Branch amLODIPine 2022-0 Yes [id number] 2.5mg Take 1 Univers 2.5 mg 9-13 tablet by ity of tablet 00:00: mouth in [place] 00 the Medical morning. Branch metoprolol 3-0 Yes [id number] 12.5mg Take 0.5 Univers tartrate 25 9-13 tablets by it y of mg tablet 00:00: [place] the Medical morning Branch and 0.5 tablets in the evening. atorvastati 3-0 Yes [id number] 40mg Take 1 Univers n 40 mg 9-13 tablet by ity of tablet 00:00: mouth at [place] 00 bedtime. Medical Branch amLODIPine 3-0 Yes [id number] 2.5mg Take 1 Univers 2.5 mg 9-13 tablet by ity of tablet 00:00: mouth in [place] 00 the Medical morning. Branch metoprolol 3-0 Yes [id number] 12.5mg Take 0.5 Univers tartrate 25 9-13 tablets by it y of mg tablet 00:00: [place] the Medical morning Branch and 0.5 tablets in the evening. atorvastati 2023-0 Yes [id number] 40mg Take 1 Univers n 40 mg 11-28 tablet by ity of tablet 00:00: mouth at [place] 00 bedtime. Medical Branch HYDROcodone 0 Yes 1{tbl} 1 tablet, Univers -acetaminop 11-27 Oral, ity of hen (NORCO 21:16: Q6HPRN, [place] 5) 5-325 mg 22 Starting Medi wale tablet 1 on Tue Branch tablet 11/27/22 at 1616, Until Discontinu ed, Routine, Pain (scale 4-6) acetaminoph Yes 650mg 650 mg, Un yoana en 11-27 Oral, ity of (TYLENOL) 21:12: Q6HPRN, [place] tablet 650 39 Starting Medic al mg on Tue Branch 11/27/22 at 1612, Until Discontinu ed, Routine, Pain (scale 1-3) nitroglycer 2022- No [id number] .8mg 0.8 mg, Univers in 11-27 Sublingual ity of (NITROSTAT) 20:15: 19:15 , ONCE, 1 [place] sublingual 00 :00 dose, On Medic al tablet 0.8 Tue Branch mg 11/27/22 at 1515, KASSIDY iopamidol 2022- No [id number] 80mL 80 mL, U nivers (ISOVUE 11-27 Intravenou ity o f 370-500 mL) 20:15: 19:25 s, ONCE, 1 [place] injection 00 :00 dose, On Medica l 80 mL Sat Branch 11/27/22 at 1515, Routine acetaminoph 0 2022- No 1{tbl} 1 tablet, Univers en-codeine 11-27 Oral, ity of (TYLENOL 11:15: 10:29 ONCE, 1 [place] #3) 300-30 00 :00 dose, On Medic al mg tablet 1 e Branch tablet 11/27/22 at 0615, Routine acetaminoph 2022-0 2022- No 1{tbl} 1 tablet, Univers en-codeine 11-26 Oral, ity of (TYLENOL 18:45: 18:50 ONCE, 1 [place] #3) 300-30 00 :00 dose, On Medic al mg tablet 1 Mon Branch tablet 11/26/22 at 1345, Routine metoprolol Yes 12.5mg 12.5 mg, U nivers tartrate 11-26 Oral, BID, ity o f (LOPRESSOR) 13:00: First dose [place] tablet 12.5 00 on Mon Medica l mg 11/26/22 at Branch 0800, Until Discontinu ed, Routine perflutren 2022- No [id number] 3mL 3 mL, IV Univers protein-A 11-25 Push, ity of microsphr 15:00: 15:00 ONCE, 1 [place] (OPTISON) 00 :00 dose, On Medica l injection 3 [facility] mL 11/25/22 at 1000, Routine pantoprazol Yes 40mg 40 mg, Univ ers e 11-25 Oral, ity of (PROTONIX) 14:00: DAILY, [place] EC tablet 00 First dose Medi wale 40 mg on [facility] 11/25/22 at 0900, Until Discontinu ed, Routine clopidogreL 2022- No 75mg 75 mg, Uni vers (PLAVIX) 75 11-25 Oral, ity of mg tablet 14:00: 14:47 DAILY, [place] 75 mg 00 :08 First dose Medical on [facility] 11/25/22 at 0900, Until Discontinu ed, Routine magnesium 2022- No 4g 4 g, IV Univ ers sulfate in 11-25 Piggyback, it y of water 4 04:15: 07:19 at 25 [place] gram/50 mL 00 :00 mL/hr Medical (8 %) IV Administer Branc h Piggyback 4 over 120 g Minutes, ONCE, 1 dose, On [facility] 11/24/22 at 2315, Routine atorvastati Yes 40mg 40 mg, Univ ers n (LIPITOR) 11-25 Oral, QHS, it y of tablet 40 02:00: First dose [place] mg 00 on [facility] Medical 11/24/22 at Branch 2100, Until Discontinu ed, Routine lactated 2022- No 500mL at 999 Unive rs ringers IV 11-24 mL/hr, 500 it y of infusion 23:00: 12:43 mL, [place] 500 mL 00 :00 Intravenou Medical s, ONCE, 1 Branch dose, On 11/24/22 at 1800, Routine lactated 2022-0 2022- [...] Until mL Discontinu ed, Routine, Wheezing lactated 2022-2022- No 500mL at 999 Unive rs ringers IV 11-24 mL/hr, 500 it y of infusion 17:45: 12:43 mL, [place] 500 mL 00 :00 Intravenou Medical s, ONCE, 1 Branch dose, On 11/24/22 at 1245, Routine nitroglycer 2022- Yes .4mg 0.4 mg, Uni vers in 11-24 Sublingual ity of (NITROSTAT) 17:23: , Q5MIN [place] as sublingual 08 PRN, Medical tablet 0.4 Starting Branc h mg on 11/24/22 at 1223, Until Discontinu ed, Routine, Chest pain heparin 0 2022- No 0U/h 0-2,750 Univer s 25,000 11-24-11 Units/hr ity of Units/250 16:21: 00:06 (0-27.5 [...] Rang e, Dosing and Testing: &nbs p;FOR [facility], [facility], AND [facility] &nbs p; - aPTT < 35: [...] ADJUST INITIAL BOLUS OR INITIAL INFUSION RATE.
amLODIPine 2023- Yes 10mg QD Take [address] [facility] (NORVASC) 11-14 tablet (10 Reyna es 10 MG 00:00: 23:59 mg total) Medica l tablet 00 :00 by mouth Center daily. amLODIPine 2023- Yes 10mg QD Take [address] [facility] (NORVASC) 11-14- tablet (10 Reyna es 10 MG 00:00: 23:59 mg total) Medica l tablet 00 :00 by mouth Center daily. thiamine 2022- No 100mg QD Take 1 [facility] 100 MG 11-14 tablet [facility] tablet 00:00: 23:59 (100 mg Medical 00 :00 total) by Center mouth daily for 30 days. thiamine 2022- No 100mg QD Take 1 [facility] t 100 MG 11-14 tablet [facility] tablet 00:00: 23:59 (100 mg Medical 00 :00 total) by Center mouth daily for 30 days. atorvastati 2023- Yes 40mg QD Take [address] [facility] n (LIPITOR) 11-13 tablet (40 L ukes 40 MG 00:00: 23:59 mg total) Medica l tablet 00 :00 by mouth Center nightly. atorvastati 2023- Yes 40mg QD Take [address] [facility] n (LIPITOR) 11-13 tablet (40 L ukes 40 MG 00:00: 23:59 mg total) Medica l tablet 00 :00 by mouth Center nightly. QUEtiapine 2022- No 25mg Q.5D Take [address] [facility] [address] (SEROquel) 11-13 tablet (25 [facility] [facility] 25 MG 00:00: 23:59 mg total) Medica l tablet 00 :00 by mouth 2 Center (two) times daily for 30 days. QUEtiapine 2022- No 25mg Q.5D Take [address] [facility] (SEROquel) 11-13 tablet (25 Iqra kes 25 MG 00:00: 23:59 mg total) Medica l tablet 00 :00 by mouth 2 Center (two) times daily for 30 days. furosemide Yes 20mg QD Take 1 [facility] (LASIX) 20 - tablet (20 Reyna es MG tablet 00:00: mg total) Med ical 00 by mouth Center in the morning. furosemide 2022- No 20mg QD Take [address] [facility] [address] (LASIX) 20 -12 11- tablet (20 Iqra kes MG tablet 00:00: 00:00 mg total) Me dical 00 :00 by mouth Center in the morning. furosemide 2022- No 20mg QD Take [address] [facility] [address] (LASIX) 20 -12 11-29 tablet (20 Iqra kes MG tablet 00:00: 00:00 mg total) Me dical 00 :00 by mouth Center in the morning. NIFEdipine Yes 60mg QD Take 1 [facility] t (PROCARDIA- - tablet (60 Iqra kes XL) 60 MG [...] tablet 00 :00 by mouth Center nightly. atorvastati 2022- No 40mg QD Take [address] [facility] n (LIPITOR) 08-11-29 tablet (40 L ukes 40 MG 00:00: 00:00 mg total) Medica l tablet 00 :00 by mouth Center nightly. NIFEdipine 2022- No 60mg QD Take [address] [facility] [address] (PROCARDIA- 08-11-29 tablet (60 L ukes XL) 60 MG 00:00: 00:00 mg total) Me dical (OSM) 24 hr 00 :00 by mouth Cent er tablet in the morning. metoprolol 2022- No 50mg Q.5D Take [address] tartrate 08-11- tablet (50 Luke s (LOPRESSOR) 00:00: 00:00 mg total) Medical 50 MG 00 :00 by mouth Center tablet in the morning and 1 tablet (50 mg total) before bedtime. atorvastati 2022- No 40mg QD Take [address] n (LIPITOR) 08-11-29 tablet (40 L ukes 40 MG 00:00: 00:00 mg total) Medica l tablet 00 :00 by mouth Center nightly. NIFEdipine 2022- No 60mg QD Take [address] (PROCARDIA- 08-11-29 tablet (60 L ukes XL) 60 MG 00:00: 00:00 mg total) Me dical (OSM) 24 hr 00 :00 by mouth Cent er tablet in the morning. metoprolol 2022- No 50mg Q.5D Take [address] tartrate 5-27 08- tablet (50 Luke s (LOPRESSOR) 00:00: 00:00 mg total) Medical 50 MG 00 :00 by mouth Center tablet in the morning and 1 tablet (50 mg total) before bedtime. doxycycline 2023-0 2023- No 100mg Q.5D Take [address] (MONODOX) 08-11- capsule [facility] 100 MG 00:00: 23:59 (100 mg Medical capsule 00 :00 total) by Center mouth in the morning and 1 capsule (100 mg total) before bedtime. Do all this for 7 days. metroNIDAZO 3-0 2023- No 500mg Q.5D Take [address] LE (FLAGYL) 08-11- tablet [facility] 500 MG 00:00: 23:59 (500 mg Medical tablet 00 :00 total) by Center mouth in the morning and 1 tablet (500 mg total) before bedtime. Do all this for 7 days. . doxycycline 3-0 2023- No 100mg Q.5D Take [address] (MONODOX) 08-11- capsule [facility] 100 MG 00:00: 23:59 (100 mg Medical capsule 00 :00 total) by Center mouth in the morning and 1 capsule (100 mg total) before bedtime. Do all this for 7 days. metroNIDAZO 2023-0 2023- No 500mg Q.5D Take [address] [facility] (FLAGYL) 08-11- tablet [facility] 500 MG 00:00: 23:59 (500 mg Medical tablet 00 :00 total) by Center mouth in the morning and 1 tablet (500 mg total) before bedtime. Do all this for 7 days. . doxycycline 2023-0 2023- No 100mg Q.5D Take [address] (MONODOX) 08-11- capsule [facility] 100 MG 00:00: 23:59 (100 mg Medical capsule 00 :00 total) by Center mouth in the morning and 1 capsule (100 mg total) before bedtime. Do all this for 7 days. metroNIDAZO 2023-0 2023- No 500mg Q.5D Take [address] [facility] (FLAGYL) 08-11- tablet [facility] 500 MG 00:00: 23:59 (500 mg Medical tablet 00 :00 total) by Center mouth in the morning and 1 tablet (500 mg total) before bedtime. Do all this for 7 days. . NIFEdipine 2022-2022- No 60mg QD Take [address] [facility] (PROCARDIA- 5-20 05-27 tablet (60 L ukes XL) 60 MG 00:00: 00:00 mg total) Me dical (OSM) 24 hr 00 :00 by mouth Cent er tablet in the morning. NIFEdipine 2022-0 2022- No 60mg QD Take [address] [facility] (PROCARDIA- 5-20 05-27 tablet (60 L ukes XL) 60 MG 00:00: 00:00 mg total) Me dical (OSM) 24 hr 00 :00 by mouth Cent er tablet in the morning. NIFEdipine 2022-0 2022- No 60mg QD Take [...] 00 :00 by mouth Center nightly. metroNIDAZO 2022-2022- No 500mg Q.[id number] Take [address] [facility] (FLAGYL) 08-03 [id number] tablet [facility] 500 MG 00:00: 00:00 3D (500 mg Medical tablet 00 :00 total) by Center mouth in the morning and 1 tablet (500 mg total) at noon and 1 tablet (500 mg total) in the evening. . atorvastati 2022-0 2022- No 40mg QD Take [address] n (LIPITOR) 5-27 tablet (40 L ukes 40 MG 00:00: 00:00 mg total) Medica l tablet 00 :00 by mouth Center nightly. metroNIDAZO 2022-0 2022- No 500mg Q.[id number] Take [address] [facility] (FLAGYL) 08-03 [id number] tablet [facility] 500 MG 00:00: 00:00 3D (500 mg Medical tablet 00 :00 total) by Center mouth in the morning and 1 tablet (500 mg total) at noon and 1 tablet (500 mg total) in the evening. . atorvastati 2022-2022- No 40mg QD Take [address] n (LIPITOR) 08-03 tablet (40 L ukes 40 MG 00:00: 00:00 mg total) Medica l tablet 00 :00 by mouth Center nightly. metroNIDAZO 2022-2022- No 500mg Q.[id number] Take [address] [facility] (FLAGYL) 08-03 [id number] tablet [facility] 500 MG 00:00: 00:00 3D (500 mg Medical tablet 00 :00 total) by Center mouth in the morning and 1 tablet (500 mg total) at noon and 1 tablet (500 mg total) in the evening. . doxycycline 2022-2022- No 100mg Q.5D Take [address] (MONODOX) 08-03 capsule [facility] 100 MG 00:00: 00:00 (100 mg Medical capsule 00 :00 total) by Center mouth in the morning and 1 capsule (100 mg total) before bedtime. doxycycline 2022-0 2022- No 100mg Q.5D Take [address] (MONODOX) 08-03 capsule [facility] 100 MG 00:00: 00:00 (100 mg Medical capsule 00 :00 total) by Center mouth in the morning and 1 capsule (100 mg total) before bedtime. doxycycline 2022-0 2022- No 100mg Q.5D Take [address] (MONODOX) 08-03 capsule [facility] 100 MG 00:00: 00:00 (100 mg Medical capsule 00 :00 total) by Center mouth in the morning and 1 capsule (100 mg total) before bedtime. divalproex 2022-2022- No epilepsy 125mg QD Take [address] (DEPAKOTE) 5-15 05-15 mg by [facility] 125 MG EC 14:52: 00:00 mouth Medica l tablet 09 :00 daily. Jeff divalproex 2022-2022- No epilepsy 125mg QD Take [address] (DEPAKOTE) 5-15 05-15 mg by [facility] 125 MG EC 14:52: 00:00 mouth Medica l tablet 09 :00 daily. Jeff divalproex 2022- No epilepsy 125mg QD Take [address] (DEPAKOTE) 5-15 05-15 mg by [facility] 125 MG EC 14:52: 00:00 mouth Medica l tablet 09 :00 daily. Jeff divalproex 2018-03 Yes epilepsy 125mg QD Take [address] (DEPAKOTE) 2-04 mg by [facility] 125 MG EC 10:36: mouth Medical tablet 04 daily. Jeff divalproex 2018-03 Yes epilepsy 125mg QD Take [address] (DEPAKOTE) 2-04 mg by [facility] 125 MG EC 10:36: mouth Medical tablet 04 daily. Jeff divalproex 2018-03 Yes epilepsy 125mg QD Take [address] (DEPAKOTE) 2-04 mg by [facility] 125 MG EC 10:36: mouth Medical tablet 04 daily. Jeff famotidine 2018-03 Yes 1{tbl} Take 1 [facility] [...] 00 :00 every 12 Center (twelve) hours. famotidine 2018-03- No 1{tbl} Take [address] (PEPCID) 20 1-30 05-15 tablet by Iqra kes MG tablet 00:00: 00:00 mouth Medica l 00 :00 every 12 Center (twelve) hours. famotidine 2018-03- No 1{tbl} Take [address] (PEPCID) 20 1-30 05-15 tablet by Iqra kes MG tablet 00:00: 00:00 mouth Medica l 00 :00 every 12 Center (twelve) hours. Vital Signs Vital Name Observation Time Observation Value Comments Source Respiratory rate 2022-11-29 01:59:00 18 /min [facility] Oxygen saturation in 2022-11-29 01:59:00 93 /min [facility] Arterial blood by [facility] Pulse oximetry Branch Systolic blood 2022-11-29 01:23:00 126 mm[Hg] Univer sity of pressure [facility] Diastolic blood 2022-11-29 01:23:00 75 mm[Hg] [facility] 2022-11-29 01:23:00 72 /min [facility] Body temperature 2022-11-29 01:23:00 36.94 Nahomi [facility] Body weight 2022-11-28 05:16:00 70.421 kg [facility] BMI 2022-11-28 05:16:00 28.40 kg/m2 [facility] Body height 2022-11-24 16:52:00 157.5 cm [facility] WEIGHT 2022-11-12 07:05:00 74.6 kg [...] HEIGHT 2022-07-30 14:32:00 157.5 cm Heart rate 2022-11-13 20:42:00 75 /min [facility] Respiratory rate 2022-11-13 20:42:00 18 /min [facility] Oxygen saturation in 2022-11-13 20:42:00 98 /min [facility] Arterial blood by Medical Ce nter Pulse oximetry Systolic blood 2022-11-13 16:00:00 124 mm[Hg] [facility] Diastolic blood 2022-11-13 16:00:00 74 mm[Hg] [facility] Body temperature 2022-11-13 16:00:00 36.44 Nahomi [facility] Body weight 2022-11-12 07:05:00 74.6 kg [facility] BMI 2022-11-12 07:05:00 30.08 kg/m2 [facility] Heart rate 2022-08-11 12:33:33 76 /min [facility] Respiratory rate 2022-08-11 12:33:33 18 /min [facility] Oxygen saturation in 2022-08-11 12:33:33 97 /min [facility] Arterial blood by Medical Ce nter Pulse oximetry Body temperature 2022-08-11 12:33:11 36.56 Nahomi [facility] Systolic blood 2022-08-11 12:32:45 129 mm[Hg] [facility] Diastolic blood 2022-08-11 12:32:45 80 mm[Hg] [facility] Body height 2022-08-05 19:35:00 157.5 cm [facility] Body weight 2022-08-05 19:35:00 58.968 kg [facility] BMI 2022-08-05 19:35:00 23.78 kg/m2 [facility] Procedures Procedure Date / Time Performing Clinician Source Performed REFERRAL- 2023-01-24 06:01:00 Doctor Unassigned, No [facility] REQUEST/RESPONSE Name Medical Branch MAGNESIUM 2022-11-28 09:22:00 Casi Maddox [facility] BASIC METABOLIC PANEL 2022-11-28 09:22:00 Casi Maddox [facility] (NA, K, CL, CO2, Medical Branch GLUCOSE, BUN, CREATININE, CA) CBC WITH DIFF 2022-11-28 09:22:00 Casi Maddox [facility] CT ANGIOGRAPHY 2022-11-27 19:24:21 Tori Hanna [facility] CORONARIES WITH CARDIAC [facility] CALCIUM SCORE CT HEAD WO CONTRAST 2022-11-27 17:24:05 Milagros Choe [facility] CBC WITHOUT DIFF 2022-11-27 09:15:00 Lazaro [facility] MAGNESIUM 2022-11-26 09:21:00 [facility] 2022-11-26 09:21:00 Lazaro [facility] ([id number]) (ALB,T.PRO,BILI Medical Branch T,BU/BC,ALT,AST,ALK PHOS) BASIC METABOLIC PANEL 2022-11-26 09:21:00 Paul [facility] (NA, K, CL, CO2, Medical Branch GLUCOSE, BUN, CREATININE, CA) CBC WITH DIFF 2022-11-26 09:21:00 Paul [facility] ACTIVATED PARTIAL 2022-11-25 22:48:00 Lazaro [facility] THRMPLAS JOHAN [facility] EKG-12 LEAD 2022-11-25 17:52:00 Issa [facility] Zackary [facility] TROPONIN I 2022-11-25 17:51:00 Philip Chris [facility] ROUTINE & RHYTHM 2022-11-25 17:39:36 Joel Willis [facility] STRIP [facility] Branch ACTIVATED PARTIAL 2022-11-25 15:42:00 Joel Willis [facility] TRANSTHORACIC ECHO (TTE) 2022-11-25 14:57:34 Joel Willis [facility] COMPLETE W/ CONTRAST Medical Bra nch MAGNESIUM 2022-11-25 09:20:00 Joel Willis [facility] BASIC METABOLIC PANEL 2022-11-25 09:20:00 Joel Willis [facility] (NA, K, CL, CO2, Medical Branch GLUCOSE, BUN, CREATININE, CA) URINE DRUG (IMMUNOASSAY) 2022-11-25 07:32:00 Joel Willis [facility] - COMPREHENSIVE DRUG Medical [facility] SCREEN GC & CHLAMYDIA AMPLIFIED 2022-11-25 07:32:00 Joel Willis [facility] ASSAY [facility] URINE DRUG (LCMSMS) - 2022-11-25 07:32:00 Joel Willis [facility] SYNTHETIC OPIATES PANEL Medical Branch CBC WITHOUT DIFF 2022-11-25 07:31:00 Lazaro [facility] ACTIVATED PARTIAL 2022-11-25 07:31:00 Lazaro [facility] URINALYSIS 2022-11-25 07:31:00 Lazaro [facility] MAGNESIUM 2022-11-25 01:31:00 Bruno [facility] BASIC METABOLIC PANEL 2022-11-25 01:31:00 Bruno [facility] (NA, K, CL, CO2, Medical Branch GLUCOSE, BUN, CREATININE, CA) ACTIVATED PARTIAL 2022-11-25 01:31:00 Lazaro [facility] TROPONIN I 2022-11-24 23:01:00 Lazaro [facility] BLOOD CULTURE SCREEN 2022-11-24 22:57:00 Joel Willis [facility] XR CHEST 1 VW 2022-11-24 21:30:59 Lazaro [facility] US ABDOMEN LIMITED 2022-11-24 21:30:31 Joel Willis [facility] XR CHEST 1 VW 2022-11-24 20:37:00 Lazaro [facility] CT HEAD WO CONTRAST 2022-11-24 18:42:54 Joel Willis [facility] ACTIVATED PARTIAL 2022-11-24 17:43:00 Lazaro [facility] THRMPLAS JOHAN [facility] CBC WITH DIFF 2022-11-24 16:39:00 Lazaro [facility] MRSA / MSSA SCREEN BY 2022-11-24 16:39:00 [facility], [facility] TROPONIN I 2022-11-24 16:34:00 Lazaro [facility] THYROID STIMULATING 2022-11-24 16:34:00 Lazaro [facility] HORMONE [facility] HEPATIC FUNCTION PANEL 2022-11-24 16:34:00 Joel Willis [facility] ([id number]) (ALB,T.PRO,BILI Medical Branch T,BU/BC,ALT,AST,ALK PHOS) BASIC METABOLIC PANEL 2022-11-24 16:34:00 [facility] (NA, K, CL, CO2, Medical Branch GLUCOSE, BUN, CREATININE, CA) LIPID PANEL 2022-11-24 16:34:00 [facility] ([id number])(TOTAL Medical Branch CHOLESTEROL, TRIGLYCERIDES, HDL) GLYCOSYLATED HEMOGLOBIN 2022-11-24 16:34:00 Lazaro [facility] (A1C) [facility] PROTHROMBIN TIME / INR 2022-11-24 16:34:00 [facility] SURFACE 2022-11-24 16:34:00 Lazaro [facility] ANTIBODY [facility] HEPATITIS B SURFACE 2022-11-24 16:34:00 Lazaro [facility] ANTIGEN [facility] HCV ANTIBODY 2022-11-24 16:34:00 Lazaro [facility] HEPATITIS A VIRUS 2022-11-24 16:34:00 [facility]TIBODY IGM Medical Branch N-TERMINAL PRO-BNP 2022-11-24 16:34:00 Willis Joel [facility] HIV 1/2 AG-AB WITH 2022-11-24 16:34:00 Lazaro [facility] EKG-12 LEAD 2022-11-24 16:22:20 Issa [facility] POCT-GLUCOSE METER 2022-11-13 12:03:00 Merchant [facility] PHOSPHORUS 2022-11-13 04:55:00 Merchant [facility] MAGNESIUM 2022-11-13 04:55:00 Merchant, [facility] CBC W/PLT COUNT & AUTO 2022-11-13 04:55:00 [place], [facility] CBC W/PLT COUNT & AUTO 2022-11-13 04:55:00 Merchant [facility] POCT-GLUCOSE METER 2022-11-12 21:27:00 Mercyunier [facility] POCT-GLUCOSE METER 2022-11-12 18:07:00 Merchant, [facility] POCT-GLUCOSE METER 2022-11-12 13:01:00 Mercmichaelt, [facility] POCT-GLUCOSE METER 2022-11-12 06:34:00 Merchant [facility] BASIC METABOLIC PANEL 2022-11-12 04:44:00 Merchant [facility] PHOSPHORUS 2022-11-12 04:44:00 Merchant, [facility] MAGNESIUM 2022-11-12 04:44:00 Kaylahant, [facility] CBC W/PLT COUNT & AUTO 2022-11-12 04:44:00 Mercmichaelt, [facility] CBC W/PLT COUNT & AUTO 2022-11-12 04:44:00 Chelseat [facility] POCT-GLUCOSE METER 2022-11-11 23:33:00 Merchant, [facility] POCT-GLUCOSE METER 2022-11-11 17:24:00 Merchant, [facility] POCT-GLUCOSE METER 2022-11-11 12:50:00 Merchant, [facility] POCT-GLUCOSE METER 2022-11-11 07:10:00 Merchant, [facility] BASIC METABOLIC PANEL 2022-11-11 04:41:00 Merchant, [facility] PHOSPHORUS 2022-11-11 04:41:00 Merchant, [facility] MAGNESIUM 2022-11-11 04:41:00 Merchant, [facility] CBC W/PLT COUNT & AUTO 2022-11-11 04:41:00 Kaylahant, [facility] CBC W/PLT COUNT & AUTO 2022-11-11 04:41:00 [facility] POCT-GLUCOSE METER 2022-11-11 00:15:00 Merchant, [facility] POCT-GLUCOSE METER 2022-11-10 17:10:00 Merchant, [facility] POCT-GLUCOSE METER 2022-11-10 16:56:00 Merchant, [facility] POCT-GLUCOSE METER 2022-11-10 12:12:00 Merchant, [facility] POCT-GLUCOSE METER 2022-11-10 06:57:00 Merchant, [facility] BASIC METABOLIC PANEL 2022-11-10 04:59:00 Merchant, [facility] PHOSPHORUS 2022-11-10 04:59:00 Merchant, [facility] MAGNESIUM 2022-11-10 04:59:00 Merchant, [facility] CBC W/PLT COUNT & AUTO 2022-11-10 04:59:00 [facility] Health[facility], [facility] CBC W/PLT COUNT & AUTO 2022-11-10 04:59:00 Merchant [facility] POCT-GLUCOSE METER 2022-11-09 23:21:00 Merchant, [facility] POCT-GLUCOSE METER 2022-11-09 17:12:00 Merchant, [facility] POCT-GLUCOSE METER 2022-11-09 12:09:00 Merchant, [facility] VANCOMYCIN LEVEL, TROUGH 2022-11-09 09:28:00 Clyde Florentino [facility] POCT-GLUCOSE METER 2022-11-09 05:53:00 Merchant, [facility] BASIC METABOLIC PANEL 2022-11-09 03:49:00 Juan J [facility] PHOSPHORUS 2022-11-09 03:49:00 Juan J [facility] MAGNESIUM 2022-11-09 03:49:00 Juan J [facility] CBC W/PLT COUNT & AUTO 2022-11-09 03:49:00 [facility] CBC W/PLT COUNT & AUTO 2022-11-09 03:49:00 Juan J [facility] POCT-GLUCOSE METER 2022-11-08 23:58:00 Kaylahant, [facility] BASIC METABOLIC PANEL 2022-11-08 18:20:00 [facility] POCT-GLUCOSE METER 2022-11-08 17:17:00 Merchant, [facility] POCT-GLUCOSE METER 2022-11-08 12:24:00 Merchant, [facility] POCT-GLUCOSE METER 2022-11-08 05:58:00 Juan J [facility] BASIC METABOLIC PANEL 2022-11-08 04:09:00 Juan J [facility] PHOSPHORUS 2022-11-08 04:09:00 Juan J [facility] MAGNESIUM 2022-11-08 04:09:00 Mir Arita [facility] CBC W/PLT COUNT & AUTO 2022-11-08 04:09:00 Mir Arita [facility] CBC W/PLT COUNT & AUTO 2022-11-08 04:09:00 Juan J [facility] Meeks [facility] XR ABDOMEN/KUB 1 VIEW 2022-11-07 21:11:00 Mir Arita [facility] BASIC METABOLIC PANEL 2022-11-07 17:58:00 [facility] Constantino [facility] BLOOD CULTURE 2022-11-07 10:27:00 Tiffanie Noel [facility] POCT-GLUCOSE METER 2022-11-07 06:01:00 Amanda Head [facility] HIGH SENSITIVITY 2022-11-07 03:17:00 [facility]OPONIN I Jeff BASIC METABOLIC PANEL 2022-11-07 03:17:00 [facility] Keanu Jeff PHOSPHORUS 2022-11-07 03:17:00 [facility] Ignacio Jeff MAGNESIUM 2022-11-07 03:17:00 [facility] Jeff CBC W/PLT COUNT & AUTO 2022-11-07 03:17:00 Agustin [facility] CBC W/PLT COUNT & AUTO 2022-11-07 03:17:00 Saeid [facility] POCT-GLUCOSE METER 2022-11-07 00:13:00 Ra Sonidohul [facility] HIGH SENSITIVITY 2022-11-06 21:18:00 Tiffanie Noel [facility] TROPONIN I Center BLOOD CULTURE 2022-11-06 14:48:00 Tesha Valladares [facility] URINALYSIS W/ REFLEX 2022-11-06 14:48:00 Jose Mas, [facility]URE [facility] PT/APTT 2022-11-06 14:47:00 Tesha Valladares [facility] HIGH SENSITIVITY 2022-11-06 14:47:00 Tiffanie Noel [facility] TROPONIN I Jeff BLOOD GAS, ARTERIAL 2022-11-06 14:46:00 [facility] 1 VIEW PORTABLE 2022-11-06 12:18:35 [facility]ia [facility] / BEDSIDE [facility] BLOOD CULTURE 2022-11-06 10:38:00 [facility] LACTIC ACID, VENOUS 2022-11-06 10:38:00 [facility] PROCALCITONIN 2022-11-06 10:38:00 Jose Kirk [facility] HIGH SENSITIVITY 2022-11-06 10:38:00 Tesha Vallada[facility] TROPONIN I [facility] POCT-BLOOD GASES, 2022-11-06 10:38:00 [facility] POCT-SODIUM 2022-11-06 10:38:00 [facility] 2022-11-06 10:38:00 [facility] PO[facility]-HEMOGLOBIN 2022-11-06 10:38:00 [facility] PO[facility]-HEMATOCRIT 2022-11-06 10:38:00 [facility] POCT-GLUCOSE 2022-11-06 10:38:00 [facility] ECG 12-LEAD 2022-11-06 10:26:42 Unknown, Hl7 [facility] ECG 12-LEAD 2022-11-06 10:26:42 Unknown, Hl7 [facility] ECG 12-LEAD 2022-11-06 10:24:58 Unknown, Hl7 [facility] ECG 12-LEAD 2022-11-06 10:24:58 Unknown, Hl[facility] ECG 12-LEAD 2022-11-06 10:23:56 Unknown, Hl7 [facility] ECG 12-LEAD 2022-11-06 10:23:56 Unknown, Hl7 [facility] ECG 12-LEAD 2022-11-06 10:23:56 Unknown, Hl7 [facility] POCT-GLUCOSE METER 2022-11-06 10:09:00 Elvia [facility] CT BRAIN WITHOUT IV 2022-11-06 08:46:36 Jhony Curtis Niki [facility] POCT-GLUCOSE METER 2022-11-06 05:34:00 Elvia [facility] BASIC METABOLIC PANEL 2022-11-06 04:38:00 [facility]US 2022-11-06 04:38:00 [facility] MAGNESIUM 2022-11-06 04:38:00 Agustin [facility] CBC W/PLT COUNT & AUTO 2022-11-06 04:38:00 [facility] CBC W/PLT COUNT & AUTO 2022-11-06 04:38:00 Conrado Saeid [facility] POCT-GLUCOSE METER 2022-11-05 23:23:00 Elvia [facility] POCT-GLUCOSE METER 2022-11-05 17:17:00 Elvia [facility] XR ABDOMEN/KUB 1 VIEW 2022-11-05 14:12:00 Elvia [facility] POCT-GLUCOSE METER 2022-11-05 12:42:00 Elvia [facility] POCT-GLUCOSE METER 2022-11-05 06:14:00 [facility]OLIC PANEL 2022-11-05 03:34:00 [facility] PHOSPHORUS 2022-11-05 03:34:00 Agustin E[facility] Ignacio Jeff MAGNESIUM 2022-11-05 03:34:00 [facility]ustin [facility], [facility] CBC W/PLT COUNT & AUTO 2022-11-05 03:34:00 Agustin Erick, [facility] CBC W/PLT COUNT & AUTO 2022-11-05 03:34:00 Saeid [facility] POCT-GLUCOSE METER 2022-11-04 23:14:00 Elvia [facility] SODIUM 2022-11-04 18:28:00 KanSaeid sanders Manuel [facility] POCT-GLUCOSE METER 2022-11-04 16:53:00 Elvia [facility] POCT-GLUCOSE METER 2022-11-04 12:30:00 Elvia [facility] SODIUM 2022-11-04 12:17:00 KanakiSaeid [place] Manuel [facility] POCT-GLUCOSE METER 2022-11-04 05:41:00 Elvia [facility] BASIC METABOLIC PANEL 2022-11-04 04:12:00 Agustin Erick, [facility] Ignacio Jeff PHOSPHORUS 2022-11-04 04:12:00 [facility] Jeff MAGNESIUM 2022-11-04 04:12:00 Agustin Erick, [facility] CBC W/PLT COUNT & AUTO 2022-11-04 04:12:00 Agustin Erick, [facility] Jeff CBC W/PLT COUNT & AUTO 2022-11-04 04:12:00 KanSaeid [facility] POCT-GLUCOSE METER 2022-11-04 00:14:00 Elvia [facility] SODIUM 2022-11-03 18:20:00 KanakiaSaeid [facility] POCT-GLUCOSE METER 2022-11-03 16:39:00 Elvia [facility] SODIUM 2022-11-03 12:06:00 ShonSaeid sandersdip [facility] POCT-GLUCOSE METER 2022-11-03 11:53:00 Elvia [facility] XR ABDOMEN/KUB 1 VIEW 2022-11-03 11:27:11 Elvia [facility] POCT-GLUCOSE METER 2022-11-03 05:39:00 Elvia [facility] BASIC METABOLIC PANEL 2022-11-03 05:04:00 [facility] PHOSPHORUS 2022-11-03 05:04:00 [facility] Ignacio Jeff MAGNESIUM 2022-11-03 05:04:00 [facility] CBC W/PLT COUNT & AUTO 2022-11-03 05:04:00 Agustin [facility] CBC W/PLT COUNT & AUTO 2022-11-03 05:04:00 [facility] POCT-GLUCOSE METER 2022-11-02 23:23:00 Elvia [facility] SODIUM 2022-11-02 18:10:00 Saeid Camp [facility] POCT-GLUCOSE METER 2022-11-02 17:45:00 Elvia [facility] POCT-GLUCOSE METER 2022-11-02 12:55:00 Elvia [facility] SODIUM 2022-11-02 12:29:00 Conrado [facility] CT BRAIN WITHOUT IV 2022-11-02 11:03:00 Elvia [facility] POCT-GLUCOSE METER 2022-11-02 06:10:00 Bessy Shah [facility] SODIUM 2022-11-02 05:19:00 Saeid [place] [facility] BASIC METABOLIC PANEL 2022-11-02 05:19:00 [facility] Ignacio Jeff PHOSPHORUS 2022-11-02 05:19:00 [facility] MAGNESIUM 2022-11-02 05:19:00 [facility] W/[facility]T COUNT & AUTO 2022-11-02 05:19:00 [facility] CBC W/PLT COUNT & AUTO 2022-11-02 05:19:00 Conrado Saeid [facility] POCT-GLUCOSE METER 2022-11-02 00:07:00 Alyssa [facility] SODIUM 2022-11-01 18:31:00 Conrado [facility] POCT-GLUCOSE METER 2022-11-01 18:27:00 Alyssa [facility] 2D ECHO W/ DOPPLER 2022-11-01 15:27:00 [facility] (CW/PW/COLOR) Jeff SODIUM 2022-11-01 13:53:00 [facility] VANCOMYCIN LEVEL, TROUGH 2022-11-01 08:58:00 Yaima Mccracken [facility] MAGNESIUM 2022-11-01 08:58:00 [facility] POTASSIUM 2022-11-01 08:58:00 [facility] BASIC METABOLIC PANEL 2022-11-01 03:10:00 [facility] 2022-11-01 03:10:00 [facility] MAGNESIUM 2022-11-01 03:10:00 [facility] CBC W/PLT COUNT & AUTO 2022-11-01 03:10:00 [facility] DIFFERENTIAL [facility] CBC W/PLT COUNT & AUTO 2022-11-01 03:10:00 Saeid Camp [facility] DIFFERENTIAL Center SODIUM 2022-10-31 23:53:00 Conrado [facility] SODIUM 2022-10-31 17:42:00 Gladys [facility] BLOOD CULTURE 2022-10-31 15:54:00 Alyssa [facility] SARS-COV2/INFLUENZA/RSV 2022-10-31 11:52:00 Alyssa [facility] RT-PCR Center SODIUM 2022-10-31 11:52:00 Shontommy [facility] MAGNESIUM 2022-10-31 11:52:00 Nehemias Russo [facility] POCT-GLUCOSE METER 2022-10-31 11:49:00 Kathy Zepeda [facility] B-TYPE NATRIURETIC 2022-10-31 09:42:00 [facility] ([facility] Center MRSA SCREEN 2022-10-31 08:30:00 Clyde Florentino [facility] BASIC METABOLIC PANEL 2022-10-31 04:01:00 Agustin Erick [facility] Ignacio Jeff PHOSPHORUS 2022-10-31 04:01:00 [facility] Jeff MAGNESIUM 2022-10-31 04:01:00 [facility] W/PLT COUNT & AUTO 2022-10-31 04:01:00 [facility] W/PLT COUNT & AUTO 2022-10-31 04:01:00 Saeid Camp [facility] VENOUS DOPPLER LEGS 2022-10-31 03:37:28 Sreekanth Guveara I [facility] VENOUS DOPPLER ARMS 2022-10-31 03:31:47 Sreekanth Guevara I [facility] HIGH SENSITIVITY 2022-10-30 22:19:00 Agustin Suarez [facility] TROPONIN I [facility] SODIUM 2022-10-30 22:19:00 Kanakioscar, [facility] 12-LEAD 2022-10-30 17:27:26 Unknown, Hl7 [facility] ECG 12-LEAD 2022-10-30 17:27:26 Unknown, Hl7 [facility] ECG 12-LEAD 2022-10-30 17:26:59 Unknown, Hl7 [facility] ECG 12-LEAD 2022-10-30 17:26:59 Sreekanth Guevara [facility] ECG 12-LEAD 2022-10-30 17:26:59 Unknown, Hl7 [facility] XR ABDOMEN/KUB 1 VIEW 2022-10-30 17:09:00 Kanakia, Saeid [facility] PORTABLE Center LACTIC ACID, ARTERIAL 2022-10-30 16:48:00 Donnie Gonzalez [facility] HIGH SENSITIVITY 2022-10-30 16:48:00 Agustin Suarez [facility] TROPONIN I [facility] SODIUM 2022-10-30 16:48:00 Kanakia, [facility] BLOOD GAS, ARTERIAL 2022-10-30 14:41:00 Agustin Erick [facility] BLOOD GAS, ARTERIAL 2022-10-30 12:13:00 Nehemias [facility] SODIUM 2022-10-30 12:12:00 Kanakia, [facility] LACTIC ACID, ARTERIAL 2022-10-30 12:12:00 Donnie Gonzalez [facility] XR CHEST 1 VIEW PORTABLE 2022-10-30 10:28:00 Kelly Medellin [facility] / BEDSIDE [facility] PROCALCITONIN 2022-10-30 10:14:00 Donnie Gonzalez [facility] HIGH SENSITIVITY 2022-10-30 10:14:00 Sreekanth Guevara [facility] TROPONIN I Center ECG 12-LEAD 2022-10-30 10:02:46 Unknown, Hl7 [facility] ECG 12-LEAD 2022-10-30 10:02:46 Unknown, Hl7 [facility] ECG 12-LEAD 2022-10-30 10:02:15 Unknown, Hl7 [facility] ECG 12-LEAD 2022-10-30 10:02:15 [facility] 12-LEAD 2022-10-30 10:02:15 Unknown, Hl7 [facility] CT BRAIN WITHOUT IV 2022-10-30 06:24:45 [facility] BASIC METABOLIC PANEL 2022-10-30 03:19:00 Agustin Erick [facility] PHOSPHORUS 2022-10-30 03:19:00 [facility] MAGNESIUM 2022-10-30 03:19:00 [facility] CBC W/PLT COUNT & AUTO 2022-10-30 03:19:00 [facility] CBC W/PLT COUNT & AUTO 2022-10-30 03:19:00 Saeid Camp [facility] DIFFERENTIAL Center SODIUM 2022-10-29 23:11:00 Saeid Camp Manuel [facility] XR ABDOMEN/KUB 1 VIEW 2022-10-29 18:16:00 Sreekanth Guevara [facility] PORTABLE Center SODIUM 2022-10-29 18:14:00 [facility] Center[facility] CREATININE, RANDOM URINE 2022-10-29 14:52:00 Pamela Angela [facility] SODIUM 2022-10-29 12:19:00 Conrado Saeid Manuel [facility] SODIUM, RANDOM URINE 2022-10-29 12:19:00 Conrado Saeid [facility] Center UREA NITROGEN, RANDOM 2022-10-29 12:19:00 Conrado Saeid Jackson [facility] URINE Center OSMOLALITY, URINE 2022-10-29 12:19:00 ConradoSaeid [facility] OSMOLALITY, SERUM 2022-10-29 12:19:00 ConradoSaeid [facility] DRUG SCREEN, URINE, 2022-10-29 12:19:00 Agustin Suarez [facility] COMPREHENSIVE [facility] HCG, QUANTITATIVE, 2022-10-29 12:19:00 Agustinjackie Suarez [facility] CTA CAROTID 2022-10-29 10:40:[address] [facility] CT BRAIN WITHOUT IV 2022-10-29 10:30:00 [facility] CONTRAST Center CTA BRAIN 2022-10-29 10:20:[address] [facility] RAPID DRUG SCREEN, URINE 2022-10-29 08:37:00 ShonSaeid sanders [facility] SCREEN, URINE 2022-10-29 08:37:00 Dolomite [facility] BLOOD GAS, ARTERIAL 2022-10-29 07:53:00 Dolomite [facility] XR CHEST 1 VIEW PORTABLE 2022-10-29 04:06:00 [facility] / BEDSIDE Center US GUIDE, VASCULAR 2022-10-29 03:47:51 [facility] ACCESS Center WI INSERT 2022-10-29 03:46:45 Gosia [facility] M BLOOD GAS, ARTERIAL 2022-10-29 03:46:00 [facility] CBC W/PLT COUNT & AUTO 2022-10-29 03:45:00 Pittard, [facility] COMPREHENSIVE METABOLIC 2022-10-29 03:45:00 Pittard, [facility] PANEL Center MAGNESIUM 2022-10-29 03:45:00 Pittard, [facility] PHOSPHORUS 2022-10-29 03:45:00 Pittard, [facility] CALCIUM, IONIZED 2022-10-29 03:45:00 Pittard, [facility] TSH/FREE T4 IF INDICATED 2022-10-29 03:45:00 Pittard, [facility] HEMOGLOBIN A1C 2022-10-29 03:45:00 Pitta, [facility] PROTHROMBIN TIME/INR 2022-10-29 03:45:00 Pittard, [facility] APTT 2022-10-29 03:45:00 Pittard, [facility] T4, FREE 2022-10-29 03:45:00 Pittard, [facility] CBC W/PLT COUNT & AUTO 2022-10-29 03:45:00 Pittard, [facility] ECG 12-LEAD 2022-10-29 03:28:02 Unknown, Hl7 [facility] ECG 12-LEAD 2022-10-29 03:28:02 Unknown, 7 [facility] ECG 12-LEAD 2022-10-29 03:27:17 Unknown, Hl7 [facility] ECG 12-LEAD 2022-10-29 03:27:17 Pittard, [facility] ECG 12-LEAD 2022-10-29 03:27:17 Unknown, 7 [facility] EKG-SCANNED 2022-10-29 00:00:00 Dahiana [facility] BASIC METABOLIC PANEL 2022-08-11 04:41:00 [facility] MAGNESIUM 2022-08-11 04:41:00 [facility] CALCIUM, IONIZED 2022-08-11 04:41:00 [facility] PHOSPHORUS 2022-08-11 04:41:00 [facility] CBC W/PLT COUNT & AUTO 2022-08-11 04:41:00 [facility] CBC W/PLT COUNT & AUTO 2022-08-11 04:41:00 [facility] BASIC METABOLIC PANEL 2022-08-10 16:09:00 [facility] SODIUM, RANDOM URINE 2022-08-10 09:33:00 [facility] UREA NITROGEN, RANDOM 2022-08-10 09:33:00 [facility] URINE [facility] CREATININE, RANDOM URINE 2022-08-10 09:33:00 [facility] OSMOLALITY, URINE 2022-08-10 09:33:00 [facility] TSH/FREE T4 IF INDICATED 2022-08-10 09:33:00 [facility] CORTISOL 2022-08-10 09:33:00 [facility] OSMOLALITY, SERUM 2022-08-10 09:33:00 [facility] T4, FREE 2022-08-10 09:33:00 [facility] CBC (HEMOGRAM ONLY) 2022-08-10 05:06:00 Higinio [facility] BASIC METABOLIC PANEL 2022-08-10 05:06:00 Yariel [facility] MAGNESIUM 2022-08-10 05:06:00 [facility] (HEMOGRAM ONLY) 2022-08-09 03:38:00 [facility]IC METABOLIC PANEL 2022-08-09 03:38:00 [facility] MAGNESIUM 2022-08-09 03:38:00 Shane Shahher [facility] CBC (HEMOGRAM ONLY) 2022-08-08 04:25:00 Higinio [facility] BASIC METABOLIC PANEL 2022-08-08 04:25:00 [facility] B-TYPE NATRIURETIC 2022-08-08 04:25:00 [facility] FACTOR (BNP[facility] STD PANEL - CT/GC RNA 2022-08-07 16:52:00 [facility] + SMEAR 2022-08-07 10:22:00 Aida Alcala CH I [facility] ANAEROBIC CULTURE 2022-08-07 10:22:00 Aida Alcala [facility] WOUND CULTURE + GRAM 2022-08-07 10:22:00 [facility] RAD[facility]UID[facility] & 2022-08-07 10:20:00 Aida Alcala [facility] INTERP/SPEC [facility] BASIC METABOLIC PANEL 2022-08-07 03:42:00 [facility] CBC (HEMOGRAM ONLY) 2022-08-07 03:41:00 [facility] CT ABDOMEN/PELVIS WITH 2022-08-06 00:22:00 Aida Alcala CH I [facility] IV CONTRAST [facility] SCREEN, URINE 2022-08-05 21:06:00 Ronal Duran [facility] CBC W/PLT COUNT & AUTO 2022-08-05 20:40:00 [address]ida Al[address] [facility] DIFFERENTIAL [facility] BASIC METABOLIC PANEL 2022-08-05 20:40:00 MaximoAida [facility] PROTHROMBIN TIME/INR 2022-08-05 20:40:00 [facility] TYPE AND SCREEN, 2022-08-05 20:40:00 Aida Alcala [facility] Medical AUTOMATED [facility] CBC W/PLT COUNT & AUTO 2022-08-05 20:40:00 Aida Alcala I [facility] DIFFERENTIAL [facility] (CELLAVISION MANUAL 2022-08-05 20:40:00 Maximo, [facility] Medical DIFF) [facility] TRANSTHORACIC ECHO FOR 2022-08-03 13:59:39 Unknown, Hl7 Doctor Kelly HOLLOWAY [facility] BASIC METABOLIC PANEL 2022-08-03 04:31:00 [facility] CBC (HEMOGRAM ONLY) 2022-08-03 04:31:00 [facility] CBC W/PLT COUNT & AUTO 2022-08-02 13:09:00 [facility] BASIC METABOLIC PANEL 2022-08-02 13:09:00 [facility] CBC W/PLT COUNT & AUTO 2022-08-02 13:09:00 [facility] (CELLAVISION MANUAL 2022-08-02 13:09:00 [facility] DIFF) Jeff NM MYOCARDIAL PERFUSION 2022-08-01 13:31:00 carlosJudy [facility] SPECT, PHARM [facility] TREADMILL 2022-08-01 11:39:56 Unknown, Hl7 [facility] TOLERANCE(NON-NUCLEAR Center TREADMILL) ECG 12-LEAD 2022-08-01 10:14:26 Unknown, [facility] ECG 12-LEAD 2022-08-01 10:14:26 Unknown, [facility] ECG 12-LEAD 2022-08-01 10:14:26 Unknown, Hl7 [facility] ECG 12-LEAD 2022-08-01 10:13:38 Unknown, 7 [facility] ECG 12-LEAD 2022-08-01 10:13:38 Unknown, 7 [facility] ECG 12-LEAD 2022-08-01 10:13:38 Unknown, 7 [facility] CBC W/PLT COUNT & AUTO 2022-08-01 04:47:00 Leonid [facility] BASIC METABOLIC PANEL 2022-08-01 04:47:00 Leonid [facility] MAGNESIUM 2022-08-01 04:47:00 Leonid Harris [facility] PHOSPHORUS 2022-08-01 04:47:00 [facility] HEMO[facility] A1C 2022-08-01 04:47:00 [facility] PT/APTT 2022-08-01 04:47:00 [facility] HCG, QUANTITATIVE, 2022-08-01 04:47:00 [facility] Center TYPE AND SCREEN, 2022-08-01 04:47:00 Leonid Harris [facility] AUTOMATED Center CBC W/PLT COUNT & AUTO 2022-08-01 04:47:00 [facility] DIFFERENTIAL Jeff (CELLAVISION MANUAL 2022-08-01 04:47:00 [facility] DIFF) Center 2D ECHO W/ DOPPLER 2022-07-31 15:20:04 [facility] (CW/PW/COLOR) [facility] ECG 12-LEAD 2022-07-31 15:01:36 Unknown, [address] ECG 12-LEAD 2022-07-31 15:01:36 [facility] ECG 12-LEAD 2022-07-31 15:01:36 Unknown, Hl7 [facility] ENDOVAGINAL EV 2022-07-31 12:52:00 [facility] PELVIS 2022-07-31 12:52:00 [facility] DOPPLER 2022-07-31 12:52:00 [facility] BASIC METABOLIC PANEL 2022-07-31 03:09:00 Tommie [place] Pis [facility] Medical An Center MAGNESIUM 2022-07-31 03:09:00 Eloisen, [place] Pis [facility] Center PHOSPHORUS 2022-07-31 03:09:00 [facility] [place] [facility] CBC W/PLT COUNT & AUTO 2022-07-31 03:09:00 Yulissa Reillyille Pis [facility] DIFFERENTIAL An Jeff LIPID PANEL 2022-07-31 03:09:00 Judy Barros [facility] CBC W/PLT COUNT & AUTO 2022-07-31 03:09:00 Tommie [place] Pis [facility] DIFFERENTIAL An Jeff XR CHEST 1 VIEW PORTABLE 2022-07-30 16:42:00 Yulissa Reillyille P is [facility] / BEDSIDE An Center CBC W/PLT COUNT & AUTO 2022-07-30 15:38:00 Tommie [place] Pis [facility] DIFFERENTIAL An Jeff BASIC METABOLIC PANEL 2022-07-30 15:38:00 Tommie [place] Pis [facility] PROTHROMBIN TIME/INR 2022-07-30 15:38:00 Tommie [place] Pis C [facility] An Center MAGNESIUM 2022-07-30 15:38:00 [facility] [place] [facility] CBC W/PLT COUNT & AUTO 2022-07-30 15:38:00 Dayron Foster [facility] Medical DIFFERENTIAL [facility] Plan of Care Planned Activity Planned Date Details Comments Source Future Scheduled 2025-07-31 Lipid panel (procedure) [facility] Test 00:00:00 [code = 16587230] Medical Ce nter Future Scheduled 2025-07-31 Lipid panel (procedure) [facility] Test 00:00:00 [code = 85319802] Medical Ce nter Future Scheduled 2025-07-31 Lipid panel (procedure) [facility] Test 00:00:00 [code = 28431368] Medical Ce nter Future Scheduled 2022-11-16 Influenza Vaccine (#1) [facility] 00:[facility]00 [code = Influenza Vaccine Me dical Center (#1)] Future Scheduled 2022-11-16 Influenza Vaccine (#1) [facility] 00:00:00 [code = Influenza Vaccine Me dical Center (#1)] Future Scheduled 2022-11-16 Influenza Vaccine (#1) [facility] 00:00:00 [code = Influenza Vaccine Me dical Center (#1)] Future Scheduled 2022-03-[address] [facility] Test 00:00:00 (12+) [code = DEPRESSION Med ical Center SCREENING (12+)] Future Scheduled 2022-03-[address] [facility] Test 00:00:00 (12+) [code = DEPRESSION Med ical Center SCREENING (12+)] Future Scheduled 2022-03-[address] [facility] Test 00:00:00 (12+) [code = DEPRESSION Med ical Center SCREENING (12+)] Future Scheduled 2021-11-16 INFLUENZA VACCINE (#1) [facility] 00:00:00 [code = INFLUENZA VACCINE Me dical Center (#1)] Future Scheduled 2021 Lipid panel (procedure) [facility] Test 00:00:00 [code = 34473737] Medical Ce nter Future Scheduled 2021-03-18 DEPRESSION [...] cervix Medical C enter (procedure) [code = 710371375] Future Scheduled 1997 Screening for malignant [facility] Test 00:00:00 neoplasm of cervix Medical C enter (procedure) [code = 083559293] Future Scheduled 1997 Screening for malignant [facility] Test 00:00:00 neoplasm of cervix Medical C enter (procedure) [code = 879853513] Future Scheduled 1997 Screening for malignant [facility] Test 00:00:00 neoplasm of cervix Medical C enter (procedure) [code = 545670294] Future Scheduled 1995 DTAP/TDAP/TD VACCINES (1 [facility] [...] screening Medical Cent er (procedure) [code = 881289907] Future Scheduled [address] [facility] 00:00:00 virus screening Medical Cent er (procedure) [code = 015371198] Future Scheduled [address] [facility] 00:00:00 virus screening Medical Cent er (procedure) [code = 977720701] Future Scheduled [address] [facility] Test 00:00:00 Counseling and Screening [facility] (12+) [code = Tobacco Cessation Counseling and Screening (12+)] Future Scheduled [address] [facility] Test 00:00:00 Counseling and Screening [facility] (12+) [code = Tobacco Cessation Counseling and Screening (12+)] Future Scheduled [address] [facility] Test 00:00:00 Counseling and Screening [facility] (12+) [code = Tobacco Cessation Counseling and Screening (12+)] Future Scheduled 1982 Pneumococcal Vaccine: [facility] 00:00:00 0-64 Years (1 - PCV) Medical Center [code = Pneumococcal Vaccine: 0-64 Years (1 - PCV)] Future Scheduled 1982 Pneumococcal Vaccine: [facility] 00:00:00 0-64 Years (1 - PCV) Medical Center [code = Pneumococcal Vaccine: 0-64 Years (1 - PCV)] Future Scheduled 1982 PNEUMOCOCCAL VACCINE 0-[address] [facility] Test 00:00:00 YRS (1 - PCV) [code = Medica Center PNEUMOCOCCAL VACCINE 0-64 YRS (1 - [...] Lukes Test 00:00:00 [code = COVID-19 VACCINE [facility] Center (#1)] Future Scheduled 1976 CT Colonography (combo) [facility] 00:00:00 [code = CT Colonography Medi wale Center (combo)] Future Scheduled 1976 Screening for malignant [facility] Test 00:00:00 neoplasm of colon Medical Ce nter (procedure) [code = 647671512] Future Scheduled 1976 Screening for malignant [facility] Test 00:00:00 neoplasm of colon Medical Ce nter (procedure) [code = 157560003] Future Scheduled 1976 Screening for malignant [facility] Test 00:00:00 neoplasm of colon Medical Ce nter (procedure) [code = 949930122] Future Scheduled 1976 Screening for malignant [facility] Test 00:00:00 neoplasm of colon Medical Ce nter (procedure) [code = 111337432] Future Scheduled 1976 Sigmoidoscopy [code = [facility] Sigmoidoscopy] Medical Cente r Future Scheduled 1976 CT Colonography (combo) [facility] Test 00:00:00 [code = CT Colonography [facility] (combo)] Future Scheduled 1976 Screening for malignant [facility] Test 00:00:00 neoplasm of colon Medical Ce nter (procedure) [code = 083841905] Future Scheduled 1976 Screening for malignant [facility] Test 00:00:00 neoplasm of colon Medical Ce nter (procedure) [code = 329363380] Future Scheduled 1976 Screening for malignant [facility] Test 00:00:00 neoplasm of colon Medical Ce nter (procedure) [code = 379580685] Future Scheduled 1976 Screening for malignant [facility] Test 00:00:00 neoplasm of colon Medical Ce nter (procedure) [code = 984208888] Future Scheduled 1976 Sigmoidoscopy [code = [facility] Sigmoidoscopy] Medical Cente r Future Scheduled 1976 CT Colonography (combo) [facility] Test 00:00:00 [code = CT Colonography Medi wale Center (combo)] Future Scheduled 1976 Screening for malignant [facility] Test 00:00:00 neoplasm of colon Medical Ce nter (procedure) [code = 861860618] Future Scheduled 1976 Screening for malignant [facility] Test 00:00:00 neoplasm of colon Medical Ce nter (procedure) [code = 095722846] Future Scheduled 1976 Screening for malignant [facility] Test 00:00:00 neoplasm of colon Medical Ce nter (procedure) [code = 440606122] Future Scheduled 1976 Screening for malignant [facility] Test 00:00:00 neoplasm of colon Medical Ce nter (procedure) [code = 771200756] Future Scheduled 1976 Sigmoidoscopy [code = [facility] 00:[facility] Sigmoidoscopy] Medical Cente r Future Scheduled 1976 CT Colonography (combo) [facility] Test 00:00:00 [code = CT Colonography [facility] (combo)] Future Scheduled 1976 Screening for malignant [facility] Test 00:00:00 neoplasm of colon Medical Ce nter (procedure) [code = 567483490] Future Scheduled 1976 Screening for malignant [facility] Test 00:00:00 neoplasm of colon Medical Ce nter (procedure) [code = 731251820] Future Scheduled 1976 Screening for malignant [facility] Test 00:00:00 neoplasm of colon Medical Ce nter (procedure) [code = 082469864] Future Scheduled 1976 Screening for malignant [facility] Test 00:00:00 neoplasm of colon Medical Ce nter (procedure) [code = 056020113] Future Scheduled 1976 Sigmoidoscopy [facility]code [facility] Sigmoidoscopy] Medical Cente r Encounters Start End Encounter Admission Attending Care Care Encounter Source Date/Time Date/Time Type Type Clinicians Facility Department ID 2022-11-07 Inpatient ER MIR ARITA [facility] [id number] [facility] 19:39:43 2022-11-06 Inpatient ER JUJU TAI [facility] [id number] [facility] 11:21:11 2022-11-06 Inpatient ER JUJU TAI [facility] [id number] [facility] 10:39:32 2022-11-05 Inpatient ER JUJU TAI [facility] [id number] [facility] 13:31:19 2022-11-03 Inpatient ER JUJU TAI [facility] [id number] [facility] 10:45:25 2022-11-01 Inpatient ER SLEH [facility] [id number] [facility] 09:28:17 2022-11-01 Inpatient ER SLEH [facility]H [id number] [facility] 09:11:47 2022-10-31 Inpatient ER BERSHAD, SLEH [facility] [id number] [facility] 00:51:03 KATHY 2022-10-31 Inpatient ER BERSHAD, SLEH [facility] [id number] [facility] 00:50:54 KATHY 2022-10-30 Inpatient ER SLEH SLEH [id number] [facility] 15:54:13 2022-10-30 Inpatient ER BERSHAD, SLEH [facility] [id number] [facility] 09:14:25 KATHY 2022-10-30 Inpatient ER BERSHAD, SLEH [facility] [id number] [facility] 05:26:11 KATHY 2022-10-29 Inpatient ER BERSHAD, SLEH SLEH [id number] [facility] 17:09:25 KATHY 2022-10-29 Inpatient ER PITTARD, SLEH SLEH [id number] SLE[facility] 03:50:03 MURRAY 2023-01-31 2023-01-31 Outpatient SFA SFA [id number] Martin 15:10:33 15:10:33 1116 F Tello 2023-01-29 2023-01-29 Robby Wang [facility] [id number] Univers 00:00:00 00:00:00 (Out) Cardiology HEALTH [id number] ity of - Clear CLEAR [id number] David WANG [phone] [place] [address] [address] OFFICE BUILDING 2023-01-24 2023-01-24 Orders Doctor YAIMA [id number] Univers 00:00:00 00:00:00 Only Unassigned, VLAD 350.1.13.10 ity of [place] [facility] 4.2.7.2.686 Anthony as [phone] [facility] [address] 2023-01-22 2023-01-22 Outpatient SFA [facility] [id number] Martin 08:26:51 08:26:51 1107 F Tello 2022-12-27 2022-12-27 Outpatient SFA SFA [id number] Martin 10:33:43 10:33:43 1012 F Tello 2022-11-29 2022-11-29 Transition Deepak TRENTGeorge [id number] Univers 00:00:00 00:00:00 of Care Desi GOLDBERGY 350.1.13.10 ity of [place] 4.2.7.2.[place] [id number] [facility] [address] 2022-11-24 2022-11-28 [facility], Babak Orourke [id number] Univers 11:15:00 21:45:00 Encounter Ryne Yoder 350.1.13.1 0 [facility] 4.2.7.2.686 [place] [id number] [facility] [address] 2022-11-24 2022-11-[address] [facility] [id number] Univers 11:15:00 21:45:00 KHALED ity [facility] 2022-11-24 2022-11-28 [facility] [id number] Univers 11:15:00 21:45:00 [facility] WESTD ity [facility] 2022-10-29 2022-11-13 Inpatient ER LEXA HANKINS Neurology [id number] [facility] 02:56:00 21:30:00 MARION 2022-10-29 2022-11-13 [facility] [id number] [facility] 02:56:00 21:30:00 Encounter Kathy Zepeda Najamus M edical Khan, Maria Cent er Damani, Rahul Hareshkumar Ali, Hiba Tahir Merchant, [place] 2022-10-29 2022-11-13 [facility] Santiago Whiteside [facility] [id number] [facility] 02:56:00 21:30:00 Encounter Kathy Zepeda Najamus M edical Khan, Maria [facility] er Sonido, Amanda Arita, Mir Constantino , Goyo 2022-11-06 2022-11-06 Inpatient ER SLE SLE [id number] [facility]H 08:32:27 00:00:00 2022-11-06 2022-11-06 Orders [facility] [id number] 00:00:00 00:00:00 Only [facility] 2022-11-06 2022-11-06 Orders [facility] [id number] 00:00:00 00:00:00 [facility] 2022-11-05 2022-11-05 Outpatient SLEH SLEH [id number] [facility] 00:00:00 00:00:00 2022-11-05 2022-11-05 Outpatient SLEH SLEH [id number] [facility]H 00:00:00 00:00:00 2022-11-02 2022-11-02 Inpatient ER JUJU TAI SLE SLE [id number] SLE 10:58:08 00:00:00 2022-10-29 2022-10-29 Inpatient ER [facility] SLE [id number] SLEH 10:12:32 23:59:00 [facility] 2022-10-29 2022-10-29 [facility] [id number] [facility] 09:35:00 23:59:00 Encounter Ra Sonidohul [facility] 2022-10-29 2022-10-29 [facility] [id number] [facility] 09:35:00 23:59:00 Encounter Ra Sonidohul [facility] 2022-10-29 2022-10-29 [facility] [id number] [facility] 10:12:49 00:00:00 [facility] 2022-10-29 2022-10-29 Inpatient ER GOSIA [facility] [id number] SLE 10:12:41 00:00:00 MURRAY 2022-10-29 2022-10-29 Orders [facility] [id number] 00:00:00 00:00:00 Only [facility] 2022-10-29 2022-10-29 Orders [facility] [id number] 00:00:00 00:00:00 [facility] 2022-08-12 2022-08-12 Telephone [facility] [id number] 00:00:00 00:00:00 [facility] 2022-08-12 2022-08-12 Telephone [facility] [id number] 00:00:00 00:00:00 [facility] 2022-08-05 2022-08-11 Inpatient [facility] [id number] SLE 18:09:00 14:47:00 [facility] 2022-08-05 2022-08-11 [facility] [id number] 18:09:00 14:47:00 Encounter [facility] 2022-08-05 2022-08-11 Hospital ER [facility] [id number] 18:09:00 14:47:00 Encounter [facility]ida [facility]cal[facility] 2022-08-05 2022-08-05 Travel [facility] [id number] [facility] 00:00:00 00:00:00 [facility] 2022-08-05 2022-08-05 Travel [facility] [id number] [facility] 00:00:00 00:00:00 [facility] 2022-07-31 2022-08-03 [id number] [facility] 04:37:00 20:00:00 [facility] 2022-07-31 2022-08-03 [facility] [id number] 04:37:00 20:00:00 Encounter [facility] 2022-07-31 2022-08-03 [facility] [id number] 04:37:00 20:00:00 Encounter [facility] 2022-07-30 2022-07-[address] [facility] Gynecology [id number] [facility] 14:07:00 04:04:00 [place] 2022-07-30 2022-07-31 [facility] [id number] 14:07:00 04:04:00 Encounter [facility] 2022-07-30 2022-07-31 [facility] [id number] 14:07:00 04:04:00 Encounter [facility] 2022-07-31 2022-07-31 Orders [facility] [id number] 00:00:00 00:00:00 [facility] 2022-07-31 2022-07-31 Orders [facility] [id number] 00:00:00 00:00:00 Only [facility] 2022-07-30 2022-07-30 Travel [facility] [id number] [facility] 00:[facility]:00 [facility] 2022-07-30 2022-07-30 Travel [facility] [id number] [facility] 00:[facility]:00 [facility] Results Test Description Test Time Test Comments Results Result Comments Source HEPATIC FUNCTION PANEL (65426) (ALB,T.PRO,BILI 2022-11-26 13 :08:17 T,BU/BC,ALT,AST,ALK PHOS) Test Item Value Reference Range Interpretation Comme nts TOTAL BILI (test code = 9815131930) 0.9 mg/dL 0.1-1.1 BILI UNCON (test code = 9447600058) 0.6 mg/dL 0.1-1.1 BILI CONJ (test code = 8928127855) 0.0 mg/dL 0.0-0.3 T PROTEIN (test code = 2479933703) 6.5 g/dL 6.3-8.2 ALBUMIN (test code = 4084410408) 4.0 g/dL 3.5-5.0 ALK PHOS (test code = 8820173467) 527 U/L 34-122 H ALTv (test code = 1742-6) 116 U/L 5-35 H AST(SGOT) (test code = 2678994720) 76 U/L 13-40 H Lab Interpretation (test code = 94753-1) Abnormal [facility]ly [facility] METABOLIC PANEL (NA, K, CL, CO2, GLUCOSE, BUN, CREATININE, CA)2022-11-26 10:08:01 Test Item Value Reference Range Interpretation Comments NA (test code = 136 mmol/L 135-145 1655870401) K (test code = 4.1 mmol/L 3.5-5.0 1433898555) CL (test code = 100 mmol/L 98-108 6709236176) CO2 TOTAL (test code 28 mmol/L 23-31 = 1225116851) AGAP (test code = 8 2-16 6639969235) BUN (test code = 17 mg/dL 7-23 2993097005) GLUCOSE (test code = 87 mg/dL 70-110 7977941198) CREATININE (test code 1.00 mg/dL 0.50-1.04 = 7855548340) CALCIUM (test code = 9.3 mg/dL 8.6-10.6 7386122110) eGFR (test code = 59.7 mL/min/1.73m2 8913844210) SUE (test code = SUE) Association of [...] or urine or abnormalities in imaging tests). [facility] 10:08:01 Test Item Value Reference Range Interpretation Comments MAGNESIUM (test code = 1065588116) 1.8 mg/dL 1.7-2.4 Lab Interpretation (test code = Normal 85414-4) [facility] WITH [id number] 09:36:22 Test Item Value Reference Range Interpretation Comments WBC (test code = 4.18 See_Comment L [Automated 0807-2) message] The sy stem which generated this result transmitted reference range : 4.30 - 11.10 10*3/?L. The reference range was not used to interpret this result as normal/abnormal . RBC (test code = 3.39 See_Comment L [Automated 150-8) message] The sy stem which generated this [...] RDW-SD (test code = 42.7 fL 39.0-49.9 17417-7) RDW-CV (test code = 12.5 % 12.0-15.5 788-0) PLT (test code = 151 See_Comment L [Automated 777-3) message] The sy stem which generated this result transmitted reference range : 166 - 358 10*3/ ?L. The reference r elizabeth was not used to interpret this result as normal/abnormal . MPV (test code = 9.4 fL 9.5-12.9 L 30209-0) NRBC/100 WBC (test 0.0 See_Comment [Automat ed code = 6581474871) message] The system which generated this result transmitted reference range : 0.0 - 10.0 /100 WBCs. The refer ence range was not u sed to interpret th is result as normal/abnormal . NRBC x10^3 (test code See_Comment [Auto mated = 6010416366) message] The s ystem which generated this result transmitted reference range : 10*3/?L. The reference range was not used to interpret this result as normal/abnormal . GRAN MAT (NEUT) % 68.0 % (test code = 770-8) IMM GRAN % (test code 0.00 % = 7406035046) LYMPH % (test code = 17.7 % 736-9) MONO % (test code = 9.1 % 5905-5) EOS % (test code = 4.5 % 713-8) BASO % (test code = 0.7 % 706-2) GRAN MAT x10^3(ANC) 2.84 10*3/uL 1.88-7.09 (test code = 9535966033) IMM GRAN x10^3 (test 0.00-0.06 code = 7930431217) LYMPH x10^3 (test code 0.74 10*3/uL 1.32-3.29 L = 731-0) MONO x10^3 (test code 0.38 10*3/uL 0.33-0.92 = 742-7) EOS x10^3 (test code = 0.19 10*3/uL 0.03-0.39 711-2) BASO x10^3 (test code 0.03 10*3/uL 0.01-0.07 = 704-7) Lab Interpretation Abnormal (test code = 11924-0) [facility] METABOLIC PANEL (NA, K, CL, CO2, GLUCOSE, BUN, CREATININE, CA)2022-11-25 09:47:18 Test Item Value Reference Range Interpretation Comments NA (test code = 135 mmol/L 135-145 0127949846) K (test code = 5.0 mmol/L 3.5-5.0 Slight 2842147540) hemolysis CL (test code = 100 mmol/L 98-108 4106218223) CO2 TOTAL (test code 28 mmol/L 23-31 = 6029530871) AGAP (test code = 7 2-16 6631325560) BUN (test code = 20 mg/dL 7-23 Slight 2628798333) hemolysis GLUCOSE (test code = 109 mg/dL 70-110 1792152582) CREATININE (test code 1.20 mg/dL 0.50-1.04 H = 9192945491) CALCIUM (test code = 9.2 mg/dL 8.6-10.6 0129125332) eGFR (test code = 48.4 mL/min/1.73m2 0070475433) SUE (test code = SUE) Association of [...] tests). Lab Interpretation Abnormal (test code = 72123-4) [facility]20[facility]10 09:42:55 Test Item Value Reference Range Interpretation Comments MAGNESIUM (test code = 9174173012) 3.1 mg/dL 1.7-2.4 H Lab Interpretation (test code = Abnormal 73728-6) [facility] CenterHEPATITIS A VIRUS ANTIBODY [id number] 23:52:42 Test Item Value Reference Range Interpretation Comments HAVM 0.05 Semi-Quantitative (test code = 06572-3) SUE (test code = HAVAb IgM Interpretative SUE) Information: Reactive greater than or equal to 1.2 Biotin has been reported to cause a negative bias, interpret results relative to patient's use of biotin. [facility] CenterTROPONIN [id number] 23:35:43 Test Item Value Reference Range Interpretation Comments TROPONIN I (test code = 0.911 ng/mL <=0.034 H 2917050004) SUE (test code = SUE) Reference (Normal) [...] biotin. Lab Interpretation Abnormal (test code = 27597-0) [facility] CenterHIV 1/2 AG-AB WITH [id number] 21:57:58 Test Item Value Reference Range Interpretation Comments HIV 0.12 Negative Semi-quantitative (test code = 58597-3) SUE (test code = Non-reactive for HIV-1 SUE) antigen and HIV-1/HIV-2 antibodies. ?No laboratory evidence of HIV infection. ?Repeat in 2-4 weeks if acute HIV infection is suspected. [facility] CenterHCV [id number] 21:57:58 Test Item Value Reference Range Interpretation Comments HCV Ab (test code = 03280-8) Negative HCV Semi-Quantitative (test code = 0.01 45482-9) [facility] CenterHEPATITIS B SURFACE [id number] 21:57:58 Test Item Value Reference Range Interpretation Comments HBsAB (test code = Negative 4400074044) HBsAb 0.00 mIU/mL Semi-Quantitative (test code = 4255949748) SUE (test code = Interpretation: SUE) ?Hepatitis B Surface Antibody ? Negative - Patient is considered to be not immune to infection with HBV. ? ? Positive - Anti-HBs detected at greater than or equal to 12 mIU/mL. ?Patient is considered to be immune to infection with HBV. ? [facility] CenterHEPATITIS B SURFACE [id number] 21:40:35 Test Item Value Reference Range Interpretation Comments HBsAg Semi-Quantitative (test code = 0.14 Negative 5195-3) [facility] CenterGLYCOSYLATED HEMOGLOBIN (A1C)2022-11-24 18:18:35 Test Item Value Reference Range Interpretation Comments HGB A1C (test code = 4.6 % 4.0-5.7 4548-4) SUE (test code = SUE) Reference RangesNormal: <5.7%Prediabetes: 5.7 - 6.4%Diabetes: > 6.5% Lab Interpretation (test Normal code = 40104-2) [facility] CenterTHYROID STIMULATING [id number] 17:58:24 Test Item Value Reference Range Interpretation Comments TSH (test code = 2.03 See_Comment [Automated message] 3930304086) The system [employer] generated this result transmitted ref erence range: 0.45 - 4 .70 mIU/L. The refe rence range was not u sed to interpret this result as normal/abnor mal. Lab Interpretation (test Normal code = 13979-3) [facility] CenterTROPONIN [id number] 17:39:48 Test Item Value Reference Range Interpretation Comments TROPONIN I (test code = 1.340 ng/mL <=0.034 H 0194361533) SUE (test code = SUE) Reference (Normal) [...] biotin. Lab Interpretation Abnormal (test code = 79204-6) [facility] CenterN-TERMINAL [id number] 17:39:48 Test Item Value Reference Range Interpretation Comments NT-proBNP (test code = 2520 pg/mL <=125 H 79653-4) SUE (test code = SUE) Positive: Heart Failure Likely Lab Interpretation (test Abnormal code = 58598-2) [facility] CenterBAS[facility] METABOLIC PANEL (NA, K, CL, CO2, GLUCOSE, BUN, CREATININE, CA)2022-11-24 17:30:04 Test Item Value Reference Range Interpretation Comments NA (test code = 135 mmol/L 135-145 6622255140) K (test code = 3.9 mmol/L 3.5-5.0 9074471622) CL (test code = 97 mmol/L 98-108 L 1053571595) CO2 TOTAL (test code = 27 mmol/L 23-31 4250819613) AGAP (test code = 11 2-16 6162449567) BUN (test code = 23 mg/dL 7-23 1798543317) GLUCOSE (test code = 163 mg/dL 70-110 H 8202213113) CREATININE (test code = 1.40 mg/dL 0.50-1.04 H 6611049562) CALCIUM (test code = 9.4 mg/dL 8.6-10.6 3196096002) eGFR (test code = 40.5 mL/min/1.73m2 9730068890) SUE (test code = SUE) Association of [...] tests). Lab Interpretation Abnormal (test code = 70960-8) [facility] CenterHEPATIC FUNCTION PANEL (13782) (ALB,T.PRO,BILI T,BU/BC,ALT,AST,ALK PHOS)2022-11-24 17:30:04 Test Item Value Reference Range Interpretation Comments TOTAL BILI (test code = 7156059849) 1.0 mg/dL 0.1-1.1 BILI UNCON (test code = 1523615616) 0.6 mg/dL 0.1-1.1 BILI CONJ (test code = 2307879545) 0.0 mg/dL 0.0-0.3 T PROTEIN (test code = 4773634201) 6.8 g/dL 6.3-8.2 ALBUMIN (test code = 8449721932) 4.1 g/dL 3.5-5.0 ALK PHOS (test code = 3768129264) 746 U/L 34-122 H ALTv (test code = 1742-6) 183 U/L 5-35 H AST(SGOT) (test code = 9805280985) 196 U/L 13-40 H Lab Interpretation (test code = Abnormal 23385-5) [facility] CenterLIPID PANEL (14926)(TOTAL CHOLESTEROL, TRIGLYCERIDES, HDL)2022-11-24 17:30:04 Test Item Value Reference Range Interpretation Comments CHOL (test code = 5237498454) 113 mg/dL 120-200 L HDL (test code = 0564416982) 62 mg/dL >=50 HDLC RATIO (test code = 9121887500) 1.8 <=4.5 TRIG (test code = 6050840706) 71 mg/dL 30-170 LDL CHOL (test code = 23078-5) 37 mg/dL <=160 VLDL (test code = 8228737415) 14 mg/dL 5-60 Lab Interpretation (test code = Abnormal 11882-5) [facility] WITH [id number] 16:55:22 Test Item Value Reference Range Interpretation Comments WBC (test code = 6.05 See_Comment [Automated 1148-2) message] The sy stem which generated this result transmitted reference range : 4.30 - 11.10 10*3/?L. The reference range was not used to interpret this result as normal/abnormal . RBC (test code = 3.21 See_Comment L [Automated 969-8) message] The sy stem which generated this [...] RDW-SD (test code = 44.3 fL 39.0-49.9 67349-1) RDW-CV (test code = 12.9 % 12.0-15.5 788-0) PLT (test code = 203 See_Comment [Automated 777-3) message] The sy stem which generated this result transmitted reference range : 166 - 358 10*3/ ?L. The reference r elizabeth was not used to interpret this result as normal/abnormal . MPV (test code = 9.9 fL 9.5-12.9 52576-7) NRBC/100 WBC (test 0.0 See_Comment [Automat ed code = 0186879676) message] The system which generated this result transmitted reference range : 0.0 - 10.0 /100 WBCs. The refer ence range was not u sed to interpret th is result as normal/abnormal . NRBC x10^3 (test code See_Comment [Auto mated = 4104805819) message] The s ystem which generated this result transmitted reference range : 10*3/?L. The reference range was not used to interpret this result as normal/abnormal . GRAN MAT (NEUT) % 59.6 % (test code = 770-8) IMM GRAN % (test code 0.20 % = 7955603617) LYMPH % (test code = 28.3 % 736-9) MONO % (test code = 9.1 % 5905-5) EOS % (test code = 2.5 % 713-8) BASO % (test code = 0.3 % 706-2) GRAN MAT x10^3(ANC) 3.61 10*3/uL 1.88-7.09 (test code = 1850393204) IMM GRAN x10^3 (test 0.00-0.06 code = 9602503583) LYMPH x10^3 (test code 1.71 10*3/uL 1.32-3.29 = 731-0) MONO x10^3 (test code 0.55 10*3/uL 0.33-0.92 = 742-7) EOS x10^3 (test code = 0.15 10*3/uL 0.03-0.39 711-2) BASO x10^3 (test code 0.01-0.07 = 704-7) Lab Interpretation Abnormal (test code = 01705-6) [facility]-Glucose [id number] 12:43:54 Test Item Value Reference Range Interpretation Comments POC-Glucose Meter (test 138 mg/dL 70-110 H : TE STED AT [facility] code = 1538) [address] [place] [address], 770 30: Sculpture Conservator/Techni smiley ID = [id number] for FERMIN MINOR [place] Lab Interpretation (test Abnormal code = 31472-1) [facility]-Glucose [id number] 12:43:54 Test Item Value Reference Range Interpretation Comments POC-Glucose Meter (test 138 mg/dL 70-110 H : TE STED AT [facility] code = 1538) [address] [place] [address], 770 30: Sculpture Conservator/Techni smiley ID = [id number] for FERMIN MINOR [place] Lab Interpretation (test Abnormal code = 39700-4) [facility]-GLUCOSE [id number] 12:43:54 Test Item Value Reference Range Interpretation Comments POC-GLUCOSE METER 138 mg/dL 70-110 H : TESTED A T [facility] 6720 (BEAKER) (test code = AVINASH Dunn [facility], 1538) [address]: Sculpture Conservator/Techni smiley ID = [id number] for MANAD ESPARZA [id number] 06:54:19 Test Item Value Reference Range Interpretation Comments PHOSPHORUS (BEAKER) (test code = 4.2 mg/dL 2.3-4.7 604) Sculpture Conservator ID - [id number] 06:54:18 Test Item Value Reference Range Interpretation Comments MAGNESIUM (BEAKER) (test code = 1.7 mg/dL 1.6-2.6 627) Sculpture Conservator ID - ADMINCBC W/PLT COUNT & AUTO [id number] 06:00:54 Test Item Value Reference Range Interpretation [...] PERCENT (BEAKER) (test code = 2801) POCT-GLUCOSE [id number] 21:38:27 Test Item Value Reference Range Interpretation Comments POC-GLUCOSE METER 88 mg/dL 70-110 : TESTED A T [facility] 6720 (BEAKER) (test code = [facility], 1538) 15958: Sculpture Conservator/Techni smiley ID = [id number] for NADEGE MORALES POCT-GLUCOSE [id number] 18:19:26 Test Item Value Reference Range Interpretation Comments POC-GLUCOSE METER 93 mg/dL 70-110 : TESTED A T [facility] 6720 (BEAKER) (test code = [facility], 1538) 18237: Sculpture Conservator/Techni smiley ID = [id number] for MANDA PANCHAL POCT-GLUCOSE [id number] 13:13:27 Test Item Value Reference Range Interpretation Comments POC-GLUCOSE METER 91 mg/dL 70-110 : TESTED A T [facility] 6720 (BEAKER) (test code = [facility], 1538) 36436: Sculpture Conservator/Techni smiley ID = [id number] for MANDA PANCHAL BLOOD [id number] 12:00:51 Test Item Value Reference Range Interpretation Comments CULTURE (BEAKER) (test No growth in 5 days code = 1095) BLOOD [id number] 12:00:51 Test Item Value Reference Range Interpretation Comments CULTURE (BEAKER) (test No growth in 5 days code = 1095) The specimen volume collected for this blood culture was below the optimum (10 mL per bottle or 20 mL total). Use of lower volumes may adversely affect recovery and/or detection times of some organisms.POCT-GLUCOSE [id number] 06:46:01 Test Item Value Reference Range Interpretation Comments POC-GLUCOSE METER 102 mg/dL 70-110 : TESTED A T [facility] 6720 (BEAKER) (test code = [facility], 153) 57153: Sculpture Conservator/Techni smiley ID = [id number] for Teresa Rose [id number] 05:48:23 Test Item Value Reference Range Interpretation Comments MAGNESIUM (BEAKER) (test code = 1.8 mg/dL 1.6-2.6 627) Sculpture Conservator ID - [id number] 05:48:23 Test Item Value Reference Range Interpretation Comments PHOSPHORUS (BEAKER) (test code = 3.6 mg/dL 2.3-4.7 604) Sculpture Conservator ID - MARCOBASIC METABOLIC [id number] 05:48:22 Test Item Value Reference Range Interpretation [...] not appl icable for dialysis patien ts Sculpture Conservator ID - MARCOCBC W/PLT COUNT & AUTO [id number] 05:10:47 Test Item Value Reference Range Interpretation [...] PERCENT (BEAKER) (test code = 2801) POCT-GLUCOSE [id number] 23:44:35 Test Item Value Reference Range Interpretation Comments POC-GLUCOSE METER 93 mg/dL 70-110 : TESTED A T [facility] 6720 (BEAKER) (test code = [facility] [place], 1538) [address]: Sculpture Conservator/Techni smiley ID = [id number] for Weav er, Teresa POCT-GLUCOSE [id number] 17:35:54 Test Item Value Reference Range Interpretation Comments POC-GLUCOSE METER 108 mg/dL 70-110 : TESTED A T [facility] 6720 (BEAKER) (test code = [facility], 1538) 70754: Sculpture Conservator/Techni smiley ID = [id number] for Donna Rolle BLOOD [id number] 17:01:46 Test Item Value Reference Range Interpretation Comments CULTURE (BEAKER) (test No growth in 5 days code = 1095) The specimen volume collected for this blood culture was below the optimum (10 mL per bottle or 20 mL total). Use of lower volumes may adversely affect recovery and/or detection times of some organisms.POCT-GLUCOSE [id number] 13:41:35 Test Item Value Reference Range Interpretation Comments POC-GLUCOSE METER 99 mg/dL 70-110 : TESTED A T [facility] 6720 (BEAKER) (test code = [facility], 1538) 11090: Sculpture Conservator/Techni smiley ID = [id number] for Donna Baxter BLOOD [id number] 13:01:43 Test Item Value Reference Range Interpretation Comments CULTURE (BEAKER) (test No growth in 5 days code = 1095) POCT-GLUCOSE [id number] 07:21:17 Test Item Value Reference Range Interpretation Comments POC-GLUCOSE METER 110 mg/dL 70-110 : TESTED A T [facility] 6720 (BEAKER) (test code = [facility], 1538) 96422: Sculpture Conservator/Techni smiley ID = [id number] for Teresa Rose BASIC METABOLIC [id number] 05:31:26 Test Item Value Reference Range Interpretation [...] not appl icable for dialysis patien ts Sculpture Conservator ID - [id number] 05:31:26 Test Item Value Reference Range Interpretation Comments MAGNESIUM (BEAKER) (test code = 2.0 mg/dL 1.6-2.6 627) Sculpture Conservator ID - [id number] 05:31:26 Test Item Value Reference Range Interpretation Comments PHOSPHORUS (BEAKER) (test code = 3.6 mg/dL 2.3-4.7 604) Sculpture Conservator ID - MARCOCBC W/PLT COUNT & AUTO [id number] 04:56:52 Test Item Value Reference Range Interpretation [...] PERCENT (BEAKER) (test code = 2801) POCT-GLUCOSE [id number] 00:26:59 Test Item Value Reference Range Interpretation Comments POC-GLUCOSE METER 135 mg/dL 70-110 H : TESTED A T [facility] 6720 (BEAKER) (test code = [facility], 153) 87338: Sculpture Conservator/Techni smiley ID = [id number] for Teresa Rose POCT-GLUCOSE [id number] 17:22:27 Test Item Value Reference Range Interpretation Comments POC-GLUCOSE METER 127 mg/dL 70-110 H : TESTED A T [facility] 6720 (BEAKER) (test code = [facility], 1538) 06878: Sculpture Conservator/Techni smiley ID = [id number] for Um eh, Akumbu POCT-GLUCOSE [id number] 17:20:21 Test Item Value Reference Range Interpretation Comments POC-GLUCOSE METER 23 mg/dL 70-110 LL : TESTED A T [facility] 6720 (BEAKER) (test code = [facility], 1538) 81092: Sculpture Conservator/Techni smiley ID = [id number] for Umeh Herbertu POCT-GLUCOSE [id number] 12:34:42 Test Item Value Reference Range Interpretation Comments POC-GLUCOSE METER 129 mg/dL 70-110 H : TESTED A T [facility] 6720 (BEAKER) (test code = [facility], 1538) 08549: Sculpture Conservator/Techni smiley ID = [id number] for Um eh, Madhuumbu [id number] 08:08:41 Test Item Value Reference Range Interpretation Comments MAGNESIUM (BEAKER) (test code = 1.9 mg/dL 1.6-2.6 627) Sculpture Conservator ID - [id number] 08:08:41 Test Item Value Reference Range Interpretation Comments PHOSPHORUS (BEAKER) (test code = 3.5 mg/dL 2.3-4.7 604) Sculpture Conservator ID - ADMINBASIC METABOLIC [id number] 08:08:40 Test Item Value Reference Range Interpretation [...] not appl icable for dialysis patien ts Sculpture Conservator ID - ADMINPOCT-GLUCOSE [id number] 07:08:26 Test Item Value Reference Range Interpretation Comments POC-GLUCOSE METER 119 mg/dL 70-110 H : TESTED A T [facility] 6720 (BEAKER) (test code = AVINASH Dunn [facility], 1538) 28395: Sculpture Conservator/Techni smiley ID = [id number] for Teresa Rose CBC W/PLT COUNT & AUTO [id number] 06:25:01 Test Item Value Reference Range Interpretation [...] PERCENT (BEAKER) (test code = 2801) POCT-GLUCOSE [id number] 23:32:08 Test Item Value Reference Range Interpretation Comments POC-GLUCOSE METER 97 mg/dL 70-110 : [facility] 67[facility] (test code = [facility], 153) 68637: Sculpture Conservator/Techni smiley ID = [id number] for WeTeresa munoz POCT-GLUCOSE [id number] 17:52:25 Test Item Value Reference Range Interpretation Comments POC-GLUCOSE METER 121 mg/dL 70-110 H : [facility] T [facility] 6720 [facility] (test code = [facility], 153) 41714: Sculpture Conservator/Techni smiley ID = [id number] for An derson, Donna POCT-GLUCOSE [id number] 12:24:17 Test Item Value Reference Range Interpretation Comments POC-GLUCOSE METER 106 mg/dL 70-110 : [facility] T [facility] 6720 [facility] (test code = [facility], 153) 64975: Sculpture Conservator/Techni smiley ID = [id number] for An derson, Donna VANCOMYCIN LEVEL, [id number] 10:00:44 Test Item Value Reference Range Interpretation Comments VANCOMYCIN TROUGH (BEAKER) (test 35.0 ug/mL 10.0-20.0 HH code = 522) Sculpture Conservator ID - ADMINPOCT-GLUCOSE [id number] 06:04:34 Test Item Value Reference Range Interpretation Comments POC-GLUCOSE METER 98 mg/dL 70-110 : TESTED A T [facility] 6720 (BEAKER) (test code = [facility] [place], 1538) 52773: Sculpture Conservator/Techni smiley ID = [id number] for Andi Warren [id number] 04:34:22 Test Item Value Reference Range Interpretation Comments PHOSPHORUS (BEAKER) (test code = 4.3 mg/dL 2.3-4.7 604) Sculpture Conservator ID - mmBASIC METABOLIC [id number] 04:34:21 Test Item Value Reference Range Interpretation [...] not appl icable for dialysis patien ts Sculpture Conservator ID - [id number] 04:34:21 Test Item Value Reference Range Interpretation Comments MAGNESIUM (BEAKER) (test code = 2.0 mg/dL 1.6-2.6 627) Sculpture Conservator ID - mmCBC W/PLT COUNT & AUTO [id number] 04:15:17 Test Item Value Reference Range Interpretation [...] PERCENT (BEAKER) (test code = 2801) POCT-GLUCOSE [id number] 00:10:22 Test Item Value Reference Range Interpretation Comments POC-GLUCOSE METER 102 mg/dL 70-110 : TESTED A T [facility] 6720 (BEAKER) (test [facility], = 1538) 92140: Sculpture Conservator/Techni smiley ID = [id number] for Andi Warren BASIC METABOLIC [id number] 19:00:42 Test Item Value Reference Range Interpretation [...] not appl icable for dialysis patien ts Sculpture Conservator ID - JSPOCT-GLUCOSE [id number] 17:28:38 Test Item Value Reference Range Interpretation Comments POC-GLUCOSE METER 122 mg/dL 70-110 H : TESTED A T [facility] 6720 (BEAKER) (test code = AVINASH Dunn [facility], 1538) [address]: Sculpture Conservator/Techni smiley ID = [id number] for An Donna lucas POCT-GLUCOSE [id number] 12:36:44 Test Item Value Reference Range Interpretation Comments POC-GLUCOSE METER 110 mg/dL 70-110 : TESTED A T [facility] 6720 (BEAKER) (test code = AVINASH Dunn [facility], 1538) [address]: Sculpture Conservator/Techni smiley ID = [id number] for An Donna lucas [id number] 06:20:37 Test Item Value Reference Range Interpretation Comments MAGNESIUM (BEAKER) (test code = 2.2 mg/dL 1.6-2.6 627) Sculpture Conservator ID - [id number] 06:20:37 Test Item Value Reference Range Interpretation Comments PHOSPHORUS (BEAKER) (test code = 3.9 mg/dL 2.3-4.7 604) Sculpture Conservator ID - ADMINBASIC METABOLIC [id number] 06:20:36 Test Item Value Reference Range Interpretation [...] not appl icable for dialysis patien ts Sculpture Conservator ID - ADMINPOCT-GLUCOSE SPODI6300-10-22 06:09:53 Test Item Value Reference Range Interpretation Comments POC-GLUCOSE METER 69 mg/dL 70-110 L : TESTED A T [facility] 6720 (BEAKER) (test code = AVINASH Dunn [facility], 1538) [address]: Sculpture Conservator/Techni smiley ID = [id number] for Andi Warren CBC W/PLT COUNT & AUTO [id number] 05:15:05 Test Item Value Reference Range Interpretation [...] PERCENT (BEAKER) (test code = 2801) XR abdomen / KUB 1 [id number] 21:59:17EXAM/TECHNIQUE: XR ABDOMEN/KUB 1 VIEW PORTABLE INDICATION: Confirm corpak placement COMPARISON: 11/05/2022. FINDINGS: Feeding tube terminates in the distal stomach. No dilated loops of largesmall bowel.No acute osseous process. Lung bases are clear.[facility] XR abdomen / KUB 1 [id number] 21:59:17EXAM/TECHNIQUE: XR ABDOMEN/KUB 1 VIEW PORTABLE INDICATION: Confirm corpak placement COMPARISON: 11/05/2022. FINDINGS: Feeding tube terminates in the distal stomach. No dilated loops of largesmall bowel.No acute osseous process. Lung bases are clear.[facility] XR ABDOMEN/KUB 1 VIEW [id number] 21:59:17 [facility] Irineo : 1975 Sex: FEXAM/TECHNIQUE: XR ABDOMEN/KUB 1 VIEW PORTABLEINDICATION: Confirm corpak placementCOMPARISON: 11/05/2022.FINDINGS: Feeding tube terminates in the distal stomach. No dilated loops of largesmall bowel. No acute osseous process. Lung bases are clear.IMPRESSION:Feeding tube terminates in the distal stomach.Electronically Signed By: Carlos Preciado11/07/2022 22:01 CDTWorkstation Name: [id number] METABOLIC [id number] 18:29:04 Test Item Value Reference Range Interpretation [...] not appl icable for dialysis patien ts Sculpture Conservator ID - BSDrug screen, urine, nztbcdxrmzgia6194-29-07 08:47:31 Test Item Value Reference Range Interpretation Comments Scan Result (test see scanned report See scanned report. code = 7200453) SUE (test code = see scanned report SUE) [facility] urine, ohxmojhfyzrop3171-50-02 08:47:31 Test Item Value Reference Range Interpretation Comments Scan Result (test see scanned report See scanned report. code = 0937571) SUE (test code = see scanned report SUE) [facility], URINE, [id number] 08:47:31 Test Item Value Reference Range Interpretation Comments SCAN RESULT (test see scanned report See scanned report. code = 7908472) see scanned reportPOCT-GLUCOSE [id number] 06:13:13 Test Item Value Reference Range Interpretation Comments POC-GLUCOSE METER 81 mg/dL 70-110 : TESTED A T [facility] 6720 (BEAKER) (test code = [place] [place], 1538) [address]: Sculpture Conservator/Techni smiley ID = [id number] for Jessica Rodrigues [id number] 04:03:55 Test Item Value Reference Range Interpretation Comments PHOSPHORUS (BEAKER) (test code = 4.8 mg/dL 2.3-4.7 H 604) Sculpture Conservator ID - EMBASIC METABOLIC [id number] 04:03:54 Test Item Value Reference Range Interpretation [...] not appl icable for dialysis patien ts Sculpture Conservator ID - JAYJYIYEIPR4866-94-46 04:03:54 Test Item Value Reference Range Interpretation Comments MAGNESIUM (BEAKER) (test code = 2.4 mg/dL 1.6-2.6 627) Sculpture Conservator ID - EMHIGH SENSITIVITY TROPONIN [id number] 03:58:57 Test Item Value Reference Range Interpretation Comments HIGH SENSITIVITY 165 pg/ml See_Comment H [Automated message] TROPONIN I (test code The sy stem which = 0827218) generated this result transmitted ref erence range: <=17. Th e reference range was not used to int erpret this result as normal/abnormal . Sculpture Conservator ID - EMThe ACCOUNT DEVELOPMENT EXECUTIVE STAT High Sensitivity Troponin-I results should be used in conjunctionwith other diagnostic information such as ECG, clinical observations and information, and patient symptoms to aid in the diagnosis of NH.CBC W/PLT COUNT & AUTO [id number] 03:38:52 Test Item Value Reference Range Interpretation [...] PERCENT (BEAKER) (test code = 2801) POCT-GLUCOSE [id number] 00:25:14 Test Item Value Reference Range Interpretation Comments POC-GLUCOSE METER 88 mg/dL 70-110 : TESTED A T [facility] 6720 (BEAKER) (test code = AVINASH Dunn [facility], 1538) [address]: Sculpture Conservator/Techni smiley ID = [id number] for Jessica Rodrigues HIGH SENSITIVITY TROPONIN [id number] 22:04:24 Test Item Value Reference Range Interpretation Comments HIGH SENSITIVITY 193 pg/ml See_Comment H [Automated message] TROPONIN I (test code The sy stem which = [id number]) generated this result transmitted ref erence range: <=17. Th e reference range was not used to int erpret this result as normal/abnormal . Sculpture Conservator ID - DBThe ACCOUNT DEVELOPMENT EXECUTIVE STAT High Sensitivity Troponin-I results should be used in conjunctionwith other diagnostic information such as ECG, clinical observations and information, and patient symptoms to aid in the diagnosis of NH.Urinalysis w/Microscopic + Reflex to [id number] 15:49:18 Test Item Value Reference Range Interpretation Comments Color, UA (test code Yellow = 5778-6) Clarity, UA (test Cloudy code = 5767-9) Specific Sheldon, UA 1.021 1.001-1.035 (test code = 5811-5) pH, UA (test code = 6.0 5.0-8.0 5803-2) Protein, UA (test 70 mg/dL Negative A code = 85570-0) Glucose, UA (test Negative Negative code = 365) Ketones, UA (test Negative Negative code = 2514-8) Bilirubin, UA (test Negative Negative code = 22271-6) Blood, UA (test code Moderate Negative A = 95278-1) Nitrite, UA (test Negative Negative code = 5802-4) Leukocytes, UA (test Trace Negative A code = 5799-2) Urobilinogen, UA 0.2 0.2-1.0 (test code = 58971-7) RBC, UA (test code = 23 See_Comment [Autom ated 15396-5) message] The system which generated this result transmit markie reference range : /HPF. The reference range was not used to interpret this result as normal/abnormal . WBC, UA (test code = 8 See_Comment [Autom ated 5821-4) message] The system which generated this result transmit markie reference range : /HPF. The reference range was not used to interpret this result as normal/abnormal . Mucus (test code = Rare 8247-9) Squam Epithel, UA 6 See_Comment [Automate d (test code = 10045-9) messag e] The system which generated this result transmit markie reference range : /HPF. The reference range was not used to interpret this result as normal/abnormal . Hyaline Casts, UA 1 See_Comment [Automate d (test code = 60978-9) messag e] The system which generated this result transmit markie reference range : /LPF. The reference range was not used to interpret this result as normal/abnormal . Specimen Source (test code = 2795) SUE (test code = SUE) Sculpture Conservator ID - [auto]Sculpture Conservator ID - bs Lab Interpretation Abnormal (test code = 25787-5) [facility] + Reflex to Culture 2022-11-06 15:49:18 Test Item Value Reference Range Interpretation Comments Color, UA (test code Yellow = 5778-6) Clarity, UA (test Cloudy code = 5767-9) Specific Sheldon, UA 1.021 1.001-1.035 (test code = 5811-5) pH, UA (test code = 6.0 5.0-8.0 5803-2) Protein, UA (test 70 mg/dL Negative A code = 18998-7) Glucose, UA (test Negative Negative code = 365) Ketones, UA (test Negative Negative code = 2514-8) Bilirubin, UA (test Negative Negative code = 59660-0) Blood, UA (test code Moderate Negative A = 01839-7) Nitrite, UA (test Negative Negative code = 5802-4) Leukocytes, UA (test Trace Negative A code = 5799-2) Urobilinogen, UA 0.2 0.2-1.0 (test code = 02632-4) RBC, UA (test code = 23 See_Comment [Autom ated 53477-1) message] The system which generated this result transmit markie reference range : /HPF. The reference range was not used to interpret this result as normal/abnormal . WBC, UA (test code = 8 See_Comment [Autom ated 5821-4) message] The system which generated this result transmit markie reference range : /HPF. The reference range was not used to interpret this result as normal/abnormal . Mucus (test code = Rare 8247-9) Squam Epithel, UA 6 See_Comment [Automate d (test code = 41133-2) messag e] The system which generated this result transmit markie reference range : /HPF. The reference range was not used to interpret this result as normal/abnormal . Hyaline Casts, UA 1 See_Comment [Automate d (test code = 29328-1) messag e] The system which generated this result transmit markie reference range : /LPF. The reference range was not used to interpret this result as normal/abnormal . Specimen Source (test code = 2795) SUE (test code = SUE) Sculpture Conservator ID - [auto]Sculpture Conservator ID - bs Lab Interpretation Abnormal (test code = 59889-3) [facility]FLEX URINE [id number] 15:49:18 Test Item Value Reference Range Interpretation [...] /LPF 514) SOURCE(BEAKER) (test code = 2795) Sculpture Conservator ID - [auto]Sculpture Conservator ID - bsPT/NEHZ4281-42-28 15:35:00 Test Item Value Reference Range Interpretation [...] patients with mechanical heart valves.HIGH SENSITIVITY TROPONIN [id number] 15:30:15 Test Item Value Reference Range Interpretation Comments HIGH SENSITIVITY 264 pg/ml See_Comment H [Automated message] TROPONIN I (test code The sy stem which = 4114155) generated this result transmitted ref erence range: <=17. Th e reference range was not used to int erpret this result as normal/abnormal . Sculpture Conservator ID - ADMINThe ACCOUNT DEVELOPMENT EXECUTIVE STAT High Sensitivity Troponin-I results should be used in conjunction with other diagnostic information such as ECG, clinical observations and information, and patientsymptoms to aid in the diagnosis of NH. Blood gas, fygymuyk3750-04-52 15:09:57 Test Item Value Reference Range Interpretation Comments pH, Arterial (test code 7.40 7.35-7.45 = 2744-1) pCO2, Arterial (test 44 See_Comment [Autom ated message] code = 2018-10) The system [employer] generated this result transmit markie reference range : 35 - 45 mm Hg. The reference range was not used to interpret this result as normal/abnormal . pO2, Arterial (test 195 See_Comment H [Automa markie message] code = 2703-7) The system [employer] generated this result transmit markie reference range : 80 - 90 mm Hg. The reference range was not used to interpret this result as normal/abnormal . O2 Sat, Arterial (test 99.3 % 96.0-97.0 H code = 2708-6) HCO3, Arterial (test 27 mmol/L 21-29 code = 1960-4) Base Excess, Arterial 1.6 mmol/L -2.0-3.0 (test code = 1925-7) Patient Temperature 37.0 (test code = 8310-5) FIO2 (test code = 1819) 36.0 Lab Interpretation Abnormal (test code = 00194-6) [facility], [id number] 15:09:57 Test Item Value Reference Range Interpretation Comments pH, Arterial (test code 7.40 7.35-7.45 = 2744-1) pCO2, Arterial (test 44 See_Comment [Autom ated message] code = 2018-10) The system [facility] generated this result transmit markie reference range : 35 - 45 mm Hg. The reference range was not used to interpret this result as normal/abnormal . pO2, Arterial (test 195 See_Comment H [Automa markie message] code = 2703-7) The system [employer] generated this result transmit markie reference range : 80 - 90 mm Hg. The reference range was not used to interpret this result as normal/abnormal . O2 Sat, Arterial (test 99.3 % 96.0-97.0 H code = 2708-6) HCO3, Arterial (test 27 mmol/L 21-29 code = 1960-4) Base Excess, Arterial 1.6 mmol/L -2.0-3.0 (test code = 1925-7) Patient Temperature 37.0 (test code = 8310-5) FIO2 (test code = 1819) 36.0 Lab Interpretation Abnormal (test code = 21147-9) [facility]AS, [id number] 15:09:57 Test Item Value Reference Range Interpretation [...] FIO2 (BEAKER) (test code = 1819) 36.0 ECG 12 [id number] 13:44:42Ventricular Rate 62 BPMAtrial Rate 62 BPMP-R Interval 180 msQRS Duration 90 msQ-T Interval 454 msQTCCalculation(Bazett) 460 msP Meraux 19 degreesR Meraux 64 degreesT Meraux 254 degrees Normal sinus rhythmPos sible Left atrial enlargementLeft ventricular hypertrophy with repolarization abnormalityAbnormal ECGWhen compared with ECG of 01-AUG-2022 10:14,ST now depressed in Inferior leadsT wave inversion more evident in Inferior leads Confirmed by MD CHARLES YOCHAI ([id number]) on 11/06/2022 1:44:41 [facility] [id number] 13:44:42Ventricular Rate 62 BPMAtrial Rate 62 BPMP-R Interval 180 msQRS Duration 90 msQ-T Interval 454 msQTC Calculation(Bazett) 460 msP Meraux 19 degreesR Meraux 64 degreesT Meraux 254 degrees Normal sinus rhythmPossible Left atrial enlargementLeft ventricular hypertrophy with repolarization abnormalityAbnormal ECGWhen compared with ECG of 01-AUG-2022 10:14,ST now depressed in Inferior leadsT wave inversion more evident in Inferior leads Confirmed by MD CHARLES YOCHAI ([id number]) on 11/06/2022 1:44:41 PM [facility] 1 view portable / [id number] 13:38:36 Chest, 1 view, 11/06/2022 11:58 AM. History: r/o aspiration pneumonia. Comparison: 10/30/2022. Discussion: The cardiac silhouette is prominent but stable. Lungs areclear. There is no pneumothorax. Feeding tube terminates below thehemidiaphragm. Right IJ central line is no longer present. There are noacute osseous findings.[facility] 1 view portable / bedside 2022-11-06 13:38:36Chest, 1 view, 11/06/2022 11:58 AM. History: r/o aspiration pneumonia. Comparison: 10/30/2022. Discussion: The cardiac silhouette is prominent but stable. Lungs areclear. There is no pneumothorax. Feeding tube terminates below thehemidiaphragm. Right IJ central line is no longer present. There are noacute osseous findings.[facility] CHEST 1 VIEW PORTABLE / [id number] 13:38:36 [facility] : 1975 Sex: FChest, 1 view, 11/06/2022 11:58 AM.History: r/o aspiration pneumonia.Comparison: 10/30/2022.Discussion: Thecardiac silhouette is prominent but stable. Lungs areclear. There is no pneumothorax. Feeding tube terminates below thehemidiaphragm. Right IJ central line is no longer present. There are noacute osseous findings.IMPRESSION:No acute pulmonary findings.Electronically Signed By: Sage Caruso11/06/2022 13:40 CDTWorkstation Name: [id number] 2022-11-06 11:32:33 Test Item Value Reference Range Interpretation Comments PROCALCITONIN (BEAKER) (test code 0.31 ng/mL <0.05 H = 3036) SEPSIS RISK (ng/mL)Low: 0.05-0.50Intermediate: 0.51-2.00High: >=2.01HIGH SENSITIVITY TROPONIN [id number] 11:27:53 Test Item Value Reference Range Interpretation Comments HIGH SENSITIVITY 344 pg/ml See_Comment H [Automated message] TROPONIN I (test code The sy stem which = 3590440) generated this result transmitted ref erence range: <=17. Th e reference range was not used to int erpret this result as normal/abnormal . Sculpture Conservator ID - DAMIÁN WThe ACCOUNT DEVELOPMENT EXECUTIVE STAT High Sensitivity Troponin-I results should be used in conjunction with other diagnostic information such as ECG, clinical observations and information, and patient symptoms to aid in the diagnosis of NH.LACTIC ACID, [id number] 11:07:17 Test Item Value Reference Range Interpretation Comments LACTATE BLOOD VENOUS (2) (BEAKER) 0.80 mmol/L 0.50-2.00 (test code = 2872) Sculpture Conservator ID - DAMIÁN WCT BRAIN WITHOUT IV [id number] 10:59:53 [facility] : 1975 Sex: F [...] Signed By: Alexandra Liang11/06/2022 11:01 CDTWorkstation Name: [id number] 10:57:58 Test Item Value Reference Range Interpretation Comments POC-Glucose (test code = 117 mg/dL 70-110 H : T ESTED AT [facility] 1855) [address] [facility], [address]: Sculpture Conservator/Techni smiley ID = [id number] for RACELIS, SHELBY INE Lab Interpretation (test Abnormal code = 87748-6) [facility] HospitalMbonksKOOV-HPMLJFWOGY9183-14-22 10:57:58 Test Item Value Reference Range Interpretation Comments POC-Hematocrit (test code 34 % 36-45 L : = 1857) Sculpture Conservator/Techni smiley ID = [id number] for RACELIS, SHELBY INE Lab Interpretation (test Abnormal code = 98833-9) [facility] Ykcptgz8830-22-99 10:57:58 Test Item Value Reference Range Interpretation Comments POC-Glucose (test code = 117 mg/dL 70-110 H : T ESTED AT [facility] 1855) [address] [facility], 7[address] 30: Sculpture Conservator/Techni smiley ID = [id number] for RACELIS, SHELBY INE Lab Interpretation (test Abnormal code = 07998-2) [facility] HospitalCvobezSRMZ-[id number] 10:57:58 Test Item Value Reference Range Interpretation Comments POC-Hematocrit (test code 34 % 36-45 L : = 1857) Sculpture Conservator/Techni smiley ID = [id number] for RACELIS, SHELBY INE Lab Interpretation (test Abnormal code = 88525-9) [facility] HospitalTubljcQSGY-[id number] 10:57:58 Test Item Value Reference Range Interpretation Comments POC-HEMATOCRIT 34 % 36-45 L : Sculpture Conservator/Te chnician ID = (BEAKER) (test code = 477945 for RACELIS, 1857) SAMY LJED-[id number] 10:57:58 Test Item Value Reference Range Interpretation Comments POC-GLUCOSE (BEAKER) 117 mg/dL 70-110 H : TESTE D AT [facility] 6720 (test code = 1855) [facility], [address]: Sculpture Conservator/Techni smiley ID = [id number] for RACE LIS, SAMY OIV-Cjmxvgjwu2466-21-22 10:57:57 Test Item Value Reference Range Interpretation Comments POC-Potassium (test code 5.5 meq/L 3.6-5.5 : T ESTED AT [facility] = 1540) [address] [place] [address], [address]: Sculpture Conservator/Techni smiley ID = [id number] for RACELIS, SHELBY INE Lab Interpretation (test Normal code = 83078-5) [facility] HospitalBelwjmMSIW-YSVPYARKRP0606-85-22 10:57:57 Test Item Value Reference Range Interpretation Comments POC-Hemoglobin (test code 11.6 g/dL 12.0-15.0 L : TESTED AT [facility] = 1856) [address] [place] [address], 770 30: Sculpture Conservator/Techni smiley ID = [id number] for RACELIS, SHELBY INE Lab Interpretation (test Abnormal code = 43989-7) [facility] HospitalPOC-Zrukqtjea6444-99-84 10:57:57 Test Item Value Reference Range Interpretation Comments POC-Potassium (test code 5.5 meq/L 3.6-5.5 : T ESTED AT [facility] = 1540) [address] [place] [address], 7[address] 30: Sculpture Conservator/Techni smiley ID = [id number] for RACELIS, SHELBY INE Lab Interpretation (test Normal code = 62960-1) [facility] HospitalSwfbmpTPLG-GRQQEDOHIE8027-73-22 10:57:57 Test Item Value Reference Range Interpretation Comments POC-Hemoglobin (test code 11.6 g/dL 12.0-15.0 L : TESTED AT [facility] = 1856) [address] [place] [address], [address]70 30: Sculpture Conservator/Techni smiley ID = [id number] for RACELIS, SHELBY INE Lab Interpretation (test Abnormal code = 87598-1) [facility] ParkCT-KNHYDFTPU1337-06-28 10:57:57 Test Item Value Reference Range Interpretation Comments POC-POTASSIUM 5.5 meq/L 3.6-5.5 : TESTED AT [facility] 6720 (BEAKER) (test code [facility], = 1540) [address]: Sculpture Conservator/Techni smiley ID = [id number] for RACE LIS, SAMY AIVI-TKTBRLFGLV8009-57-22 10:57:57 Test Item Value Reference Range Interpretation Comments POC-HEMOGLOBIN 11.6 g/dL 12.0-15.0 L : TESTED AT [facility] 6720 (BEAKER) (test code [facility], = 1856) [address]: Sculpture Conservator/Techni smiley ID = [id number] for RACE LIS, SAMY SGM-Ivixgf4655-59-22 10:57:52 Test Item Value Reference Range Interpretation Comments POC-Sodium (test code = 142 meq/L 135-148 : TE STED AT [facility] 1542) [address] [facility], 7[address]: Sculpture Conservator/Techni smiley ID = [id number] for SHELBY GONZALEZ INE Lab Interpretation (test Normal code = 40778-5) [facility]-Iviqdf0223-20-47 10:57:52 Test Item Value Reference Range Interpretation Comments POC-Sodium (test code = 142 meq/L 135-148 : TE STED AT [facility] 1542) [address] [facility], [address]: Sculpture Conservator/Techni smiley ID = [id number] for RACELIS, SHELBY INE Lab Interpretation (test Normal code = 10119-0) [facility]-BNPAGS9604-87-83 10:57:52 Test Item Value Reference Range Interpretation Comments POC-SODIUM (BEAKER) 142 meq/L 135-148 : TESTED AT [facility] 6720 (test code = 1542) [facility], [address]: Sculpture Conservator/Techni smiley ID = [id number] for SAMY DAVIS POC-Blood gases, vnwtazxu8639-82-26 10:57:51 Test Item Value Reference Range Interpretation Comments Temp. Celsius-POC (test code = 1834) FIO2-POC (test code = 1835) pH, Arterial-POC (test 7.36 7.35-7.45 code = 2744-1) PCO2, Arterial-POC 57.4 See_Comment H If pO2 is >180, pCO2 (test code = 1837) may be po sitively biased [Automat ed message] The sy stem which generated this result transmit markie reference range : 35.0 - 45.0 mm Hg. The reference r elizabeth was not used to interpret this result as normal/abnormal . PO2, Arterial-POC (test 22.0 See_Comment LL [Au tomated message] code = 1838) The system ic h generated this result transmit markie reference range : 80.0 - 90.0 mm Hg. The reference r elizabeth was not used to interpret this result as normal/abnormal . SO2, Arterial-POC (test 35.0 % 96.0-97.0 L code = 1839) HCO3, Arterilal-POC 32.6 meq/L 21.0-29.0 H (test code = 1840) BE, Arterial-POC (test 7.0 meq/L -2.0-3.0 H : LAISHA MARKIE AT [facility] code = 1841) [address] [facility], [address]: Sculpture Conservator/Techni smiley ID = [id number] for RACELIS, SHELBY INE Lab Interpretation Abnormal (test code = 90397-6) [facility]-Blood gases, hllqmxzf2397-80-13 10:57:51 Test Item Value Reference Range Interpretation Comments Temp. Celsius-POC (test code = 1834) FIO2-POC (test code = 1835) pH, Arterial-POC (test 7.36 7.35-7.45 code = 2744-1) PCO2, Arterial-POC 57.4 See_Comment H If pO2 is >180, pCO2 (test code = 1837) may be po sitively biased [Automat ed message] The sy stem which generated this result transmit markie reference range : 35.0 - 45.0 mm Hg. The reference r elizabeth was not used to interpret this result as normal/abnormal . PO2, Arterial-POC (test 22.0 See_Comment LL [Au tomated message] code = 1838) The system [employer] h generated this result transmit markie reference range : 80.0 - 90.0 mm Hg. The reference r elizabeth was not used to interpret this result as normal/abnormal . SO2, Arterial-POC (test 35.0 % 96.0-97.0 L code = 1839) HCO3, Arterilal-POC 32.6 meq/L 21.0-29.0 H (test code = 1840) BE, Arterial-POC (test 7.0 meq/L -2.0-3.0 H : LAISHA MARKIE AT [facility] code = 1841) [address] [place], [address]: Sculpture Conservator/Techni smiley ID = [id number] for RACELIS, SHELBY INE Lab Interpretation Abnormal (test code = 57600-2) [facility]-BLOOD GASES, [id number] 10:57:51 Test Item Value Reference Range Interpretation [...] 7.0 meq/L -2.0-3.0 H : TESTED AT [facility] 6720 [facility], (BEAKER) (test code 91985: = 1841) Sculpture Conservator/Techni smiley ID = [id number] for SAMY DAVIS POCT-GLUCOSE [id number] 10:21:20 Test Item Value Reference Range Interpretation Comments POC-GLUCOSE METER 117 mg/dL 70-110 H : TESTED A T [facility] 6720 ([facility]) (test code = [facility], 1538) [address]: Sculpture Conservator/Techni smiley ID = [id number] for MANDA ESPARZA CT brain without IV iqpbgyiu8821-68-26 09:31:[address] BRAIN WITHOUT IV CONTRAST INDICATION: Unlisted Reason for Exam CO MPARISON: CT prior day TECHNIQUE: Noncontrast axial CT imaging of the brain and skull. DOSE REDUCTION: Dose modulation, iterative reconstruction, and/orweight- based adjustment of the mA/kV was utilizedto reduce theradiation dose to as low as reasonably achievable. FINDINGS:No significant interval change in previously described intraparenchymalhematoma centered at the right basal ganglia with intraventricularextent and trace acute blood products within the dependent portions ofthe lateral ventricles. Midline shift is increased, formerly 4 mm andnow 6-7 mm. There is effacement of the right lateral ventricle withearly entrapment of the left lateral ventricle and leftward subfalcineherniation. Orbitsare within normal limits. No obstructive paranasal sinus disease.[facility]CT [facility] without IV [id number] 09:31:[address] BRAIN WITHOUT IV CONTRAST INDICATION: Unlisted Reason for Exam COMPARISON: CT prior day TECHNIQUE: Noncontrast axial CT imaging of the brain and skull. DOSE REDUCTION: Dose modulation, iterative reconstruction, and/orweight-based adjustment of the mA/kV was utilizedto reduce theradiation dose to as low as reasonably achievable. FINDINGS:No significant interval change in previously described intraparenchymalhematoma centered at the right basal ganglia with intraventricularextent and trace acute blood products within the dependent portions ofthe lateral ventricles. Midline shift is increased, formerly 4 mm andnow 6-7 mm. There is effacement of the right lateral ventricle withearly entrapment of the left lateral ventricle and leftward subfalcineherniation. Orbitsare within normal limits. No obstructive paranasal sinus disease.[facility] HospitalPOCT-GLUCOSE [id number] 05:45:28 Test Item Value Reference Range Interpretation Comments POC-GLUCOSE METER 116 mg/dL 70-110 H : [facility] (test code = [place], 1538) [address]: Sculpture Conservator/Techni smiley ID = [id number] for Teresa Rose BASIC METABOLIC [id number] 05:42:31 Test Item Value Reference Range Interpretation [...] not appl icable for dialysis patien ts Sculpture Conservator ID - [id number] 05:40:46 Test Item Value Reference Range Interpretation Comments MAGNESIUM (BEAKER) (test code = 2.9 mg/dL 1.6-2.6 H 627) Sculpture Conservator ID - [id number] 05:40:46 Test Item Value Reference Range Interpretation Comments PHOSPHORUS (BEAKER) (test code = 6.5 mg/dL 2.3-4.7 H 604) Sculpture Conservator ID - ADMINCBC W/PLT COUNT & AUTO [id number] 05:38:35 Test Item Value Reference Range Interpretation [...] PERCENT (BEAKER) (test code = 2801) POCT-GLUCOSE [id number] 23:35:25 Test Item Value Reference Range Interpretation Comments POC-GLUCOSE METER 135 mg/dL 70-110 H : TESTED A T [facility] 6720 (BEAKER) (test code = [facility], 153) 10518: Sculpture Conservator/Techni smiley ID = [id number] for Teresa Rose POCT-GLUCOSE [id number] 17:28:48 Test Item Value Reference Range Interpretation Comments POC-GLUCOSE METER 101 mg/dL 70-110 : TESTED A T [facility] 6720 (BEAKER) (test code = [facility], 153) 98483: Sculpture Conservator/Techni smiley ID = [id number] for CIRA HUMPHREY BLOOD [id number] 17:00:30 Test Item Value Reference Range Interpretation Comments CULTURE (BEAKER) (test No growth in 5 days code = 1095) BLOOD [id number] 17:00:30 Test Item Value Reference Range Interpretation Comments CULTURE (BEAKER) (test No growth in 5 days code = 1095) XR ABDOMEN/KUB 1 VIEW [id number] 14:17:07 [facility] 1975 Sex: FXR ABDOMEN/KUB 1 VIEW PORTABLETECHNIQUE: Supine radiograph(s) of the abdomen and pelvis.HISTORY: corpak placementCOMPARISON: 12/04/2022IMPRESSION:Lines and tubes: Enteric tube is seen with tip in the stomachElectronically Signed By: Sarah Carrera11/05/2022 14:19 CDTWorkstation Name: [id number] 12:53:33 Test Item Value Reference Range Interpretation Comments POC-GLUCOSE METER 88 mg/dL 70-110 : [facility] (test code = [facility] [employer] [facility], 1538) 54862: Sculpture Conservator/Techni smiley ID = [id number] for CIRA ROLAND POCT-GLUCOSE [id number] 06:25:50 Test Item Value Reference Range Interpretation Comments POC-GLUCOSE METER 110 mg/dL 70-110 : TESTED A T [facility] 6720 ([employer]) (test code = [facility] [employer] [facility], 1538) 98564: Sculpture Conservator/Techni smiley ID = [id number] for NADEGE IVEY BASIC METABOLIC [id number] 04:16:53 Test Item Value Reference Range Interpretation [...] not appl icable for dialysis patien ts Sculpture Conservator ID Gisele STEEL [id number] 04:16:53 Test Item Value Reference Range Interpretation Comments MAGNESIUM (BEAKER) (test code = 2.8 mg/dL 1.6-2.6 H 627) Sculpture Conservator ID - DAMIÁN [id number] 04:16:53 Test Item Value Reference Range Interpretation Comments PHOSPHORUS (BEAKER) (test code = 5.7 mg/dL 2.3-4.7 H 604) Sculpture Conservator ID - DAMIÁN WCBC W/PLT COUNT & AUTO [id number] 03:44:05 Test Item Value Reference Range Interpretation [...] PERCENT (BEAKER) (test code = 2801) POCT-GLUCOSE [id number] 23:25:33 Test Item Value Reference Range Interpretation Comments POC-GLUCOSE METER 114 mg/dL 70-110 H : TESTED Oscar Art [facility] 6720 (BEAKER) (test code = [facility], 1538) 36522: Sculpture Conservator/Techni smiley ID = [id number] for NADEGE IVEY [id number] 18:58:11 Test Item Value Reference Range Interpretation Comments SODIUM (BEAKER) (test code = 381) 142 meq/L 136-145 Sculpture Conservator ID - JSPOCT-GLUCOSE [id number] 17:04:52 Test Item Value Reference Range Interpretation Comments POC-GLUCOSE METER 142 mg/dL 70-110 H : TESTED A T [facility] 6720 (BEAKER) (test code = [facility], 1538) 94959: Sculpture Conservator/Techni smiley ID = [id number] for MA RTINEZ, MANDA POCT-GLUCOSE [id number] 12:43:34 Test Item Value Reference Range Interpretation Comments POC-GLUCOSE METER 127 mg/dL 70-110 H : TESTED A T [facility] 6720 (BEAKER) (test code = [facility], 1538) 34635: Sculpture Conservator/Techni smiley ID = [id number] for MA RTINEZ, MANDA [id number] 12:42:31 Test Item Value Reference Range Interpretation Comments SODIUM (BEAKER) (test code = 381) 141 meq/L 136-145 Sculpture Conservator ID - JSPOCT-GLUCOSE [id number] 05:53:11 Test Item Value Reference Range Interpretation Comments POC-GLUCOSE METER 122 mg/dL 70-110 H : TESTED A T [facility] 6720 (BEAKER) (test code = [facility], 1538) 00735: Sculpture Conservator/Techni smiley ID = [id number] for NADEGE IVEY [id number] 04:57:58 Test Item Value Reference Range Interpretation Comments PHOSPHORUS (BEAKER) 6.1 mg/dL 2.3-4.7 H Specimen slightly (test code = 604) hemolyzed Sculpture Conservator ID - DAMIÁN WBASIC METABOLIC [id number] 04:57:58 Test Item Value Reference Range Interpretation [...] not appl icable for dialysis patien ts Sculpture Conservator ID - DAMIÁN [id number] 04:57:57 Test Item Value Reference Range Interpretation Comments MAGNESIUM (BEAKER) 2.7 mg/dL 1.6-2.6 H Specimen slightly (test code = 627) hemolyzed Sculpture Conservator ID - DAMIÁN WCBC W/PLT COUNT & AUTO [id number] 04:36:11 Test Item Value Reference Range Interpretation [...] PERCENT (BEAKER) (test code = 2801) POCT-GLUCOSE [id number] 00:26:17 Test Item Value Reference Range Interpretation Comments POC-GLUCOSE METER 117 mg/dL 70-110 H : TESTED A T [facility] 6720 (BEAKER) (test code = [facility] [place], 1538) 41896: Sculpture Conservator/Techni smiley ID = [id number] for NADEGE IVEY [id number] 19:29:04 Test Item Value Reference Range Interpretation Comments SODIUM (BEAKER) (test code = 381) 141 meq/L 136-145 Sculpture Conservator ID - ADMINPOCT-GLUCOSE [id number] 16:58:24 Test Item Value Reference Range Interpretation Comments POC-GLUCOSE METER 142 mg/dL 70-110 H : TESTED A T [facility] 6720 (WESLEY) (test code = AVINASH Dunn [facility], 1538) 32644: Sculpture Conservator/Techni smiley ID = [id number] for MANDA ESPARZA XR ABDOMEN/KUB 1 VIEW [id number] 13:01:43 [facility] CENTER[facility] GEETHA MINOR Irineo : 1975 Sex: FAbdomen , one viewHistory:Feeding tube placementComparison:10/30/2022Findings:Tip of the feeding tube is near the pylorus. Nonobstructive bowel gaspattern. Cholecystectomy clips within the right upper quadrant.Electronically Signed By: Kam Vigil MD11/03/2022 13:03 CDTWorkstation Name: [id number] 12:39:24 Test Item Value Reference Range Interpretation Comments SODIUM (WESLEY) (test code = 381) 142 meq/L 136-145 POCT-GLUCOSE [id number] 12:05:03 Test Item Value Reference Range Interpretation Comments POC-GLUCOSE METER 118 mg/dL 70-110 H : TESTED A T [facility] 6720 (WESLEY) (test code = [facility]INASH Dunn [facility], 1538) 49677: Sculpture Conservator/Techni smiley ID = [id number] for MANDA ESPARZA [id number] 06:17:11 Test Item Value Reference Range Interpretation Comments PHOSPHORUS (BEAKER) (test code = 4.1 mg/dL 2.3-4.7 604) Sculpture Conservator ID - DAMIÁN WBASIC METABOLIC [id number] 06:17:10 Test Item Value Reference Range Interpretation [...] not appl icable for dialysis patien ts Sculpture Conservator ID - DAMIÁN [id number] 06:17:10 Test Item Value Reference Range Interpretation Comments MAGNESIUM (BEAKER) (test code = 2.4 mg/dL 1.6-2.6 627) Sculpture Conservator ID - DAMIÁN WPOCT-GLUCOSE [id number] 05:50:21 Test Item Value Reference Range Interpretation Comments POC-GLUCOSE METER 121 mg/dL 70-110 H : TESTED A T [facility] 6720 (BEAKER) (test code = [facility] [place], 1538) 69765: Sculpture Conservator/Techni smiley ID = [id number] for NADEGE IVEY CBC W/PLT COUNT & AUTO [id number] 05:25:22 Test Item Value Reference Range Interpretation [...] PERCENT (BEAKER) (test code = 2801) POCT-GLUCOSE [id number] 23:36:51 Test Item Value Reference Range Interpretation Comments POC-GLUCOSE METER 116 mg/dL 70-110 H : TESTED A T [facility] 6720 (BEAKER) (test code = [facility], 153) 11399: Sculpture Conservator/Techni smiley ID = [id number] for NADEGE IVEY [id number] 18:30:49 Test Item Value Reference Range Interpretation Comments SODIUM (BEAKER) (test code = 381) 141 meq/L 136-145 Sculpture Conservator ID - ADMINPOCT-GLUCOSE [id number] 17:57:14 Test Item Value Reference Range Interpretation Comments POC-GLUCOSE METER 118 mg/dL 70-110 H : TESTED A T [facility] 6720 (BEAKER) (test code = [facility], 153) 68019: Sculpture Conservator/Techni smiley ID = [id number] for An Donna lucas MRSA [id number] 14:39:15 Test Item Value Reference Range Interpretation Comments Result (test code = 6463-4) No [facility] [id number] 14:39:15 Test Item Value Reference Range Interpretation Comments Result (test code = 6463-4) No [facility] [id number] 14:39:15 Test Item Value Reference Range Interpretation Comments CULTURE (BEAKER) (test code No MRSA isolated = 1095) [id number] 13:35:39 Test Item Value Reference Range Interpretation Comments SODIUM (BEAKER) (test code = 381) 139 meq/L 136-145 Sculpture Conservator ID - BVPOCT-GLUCOSE [id number] 13:06:41 Test Item Value Reference Range Interpretation Comments POC-GLUCOSE METER 134 mg/dL 70-110 H : TESTED A T [facility] 6720 (BEAKER) (test code = [facility], 153) 96753: Sculpture Conservator/Techni smiley ID = [id number] for An Donna lucas CT BRAIN WITHOUT IV [id number] 13:00:59 [facility] 1975 Sex: FCT [...] Signed By: Alexandra Liang11/02/2022 13:03 CDTWorkstation Name: [id number] 06:29:29 Test Item Value Reference Range Interpretation Comments SODIUM (BEAKER) (test code = 381) 139 meq/L 136-145 BASIC METABOLIC [id number] 06:29:28 Test Item Value Reference Range Interpretation [...] not appl icable for dialysis patien ts Sculpture Conservator ID - [id number] 06:29:28 Test Item Value Reference Range Interpretation Comments MAGNESIUM (BEAKER) (test code = 2.2 mg/dL 1.6-2.6 627) Sculpture Conservator ID - [id number] 06:29:28 Test Item Value Reference Range Interpretation Comments PHOSPHORUS (BEAKER) (test code = 3.8 mg/dL 2.3-4.7 604) Sculpture Conservator ID - MARCOPOCT-GLUCOSE [id number] 06:21:55 Test Item Value Reference Range Interpretation Comments POC-GLUCOSE METER 125 mg/dL 70-110 H : TESTED A T [facility] 6720 (BEAKER) (test code = [facility] [place], 1538) 08987: Sculpture Conservator/Techni smiley ID = [id number] for NADEGE IVEY CBC W/PLT COUNT & AUTO [id number] 06:08:00 Test Item Value Reference Range Interpretation [...] PERCENT (BEAKER) (test code = 2801) POCT-GLUCOSE [id number] 00:19:06 Test Item Value Reference Range Interpretation Comments POC-GLUCOSE METER 99 mg/dL 70-110 : TESTED A T [facility] 6720 (BEBITA) (test code = AVINASH Dunn [facility], 1538) 94777: Sculpture Conservator/Techni smiley ID = [id number] for NADEGE [id number] 18:45:56 Test Item Value Reference Range Interpretation Comments SODIUM (WESLEY) (test code = 381) 140 meq/L 136-145 Sculpture Conservator ID - ADMPOCT-GLUCOSE [id number] 18:39:21 Test Item Value Reference Range Interpretation Comments POC-GLUCOSE METER 121 mg/dL 70-110 H : TESTED A T [facility] 6720 (WESLEY) (test 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 Moderate concentric LV hypertrophy. All of the LV segments contract normally . LVEF by Javed's method of disk assessment is normal (55-60%) . Grade 2 diastolic dysfunction (moderately increased LA pressure). High (cardiac index >4 L/min/m2) cardiac output state at rest is noted. Unable to estimate peak systolic PA pressure; inadequate TR velocity signal. Signature Findings Left Ventricle TheLV endocardium is adequately visualized. The left ventricle is chamber size (by vol index) is normal(female - LVED vol - 29-61ml/m2). Moderate concentric LV hypertrophy. All of the LV segments contract normally . Global LV systolic function normal . LVEF by Javed's method of disk assessment is normal (55-60%) . Grade 2 diastolic dysfunction (moderately increased LA pressure). High (cardiac index >4 L/min/m2) cardiac output state at rest is noted. Left Atrium LA size is severely enlarged (>48 ml/m2) . Right Ventricle Normal RV size and systolic function. Right Atrium RA size is normal. Atrial Septum Normal interatrial septum by available views. Aortic Valve Normal AoV structure. Early systolic closure by M-mode noted. No evidence of aortic stenosis. No evidence of aortic regurgitation. Noevidence of intracavitary obstruction. Mitral Valve Mild mitral annular calcification. Mild MV leaflet thickening. No systolic anterior motion noted. Tricuspid Valve TV structure is normal. No evidenceof tricuspid regurgitation. Unable to estimate peak systolic PA pressure; inadequate TR velocity signal. Pulmonic Valve Normal PV structure and function by limited views and Doppler. A trace of pulmonary regurgitation. Aorta Proximal ascending aorta size moderately dilated. 4.6 cm Pericardium No pericardial effusion is visualized. IVC/SVC/PA/PV/Pleural The inferior vena cava size is small . The estimated RA pressure by IVC dynamics 0-5mmHg .Chambers/Structures Left Atrium LA Volume: 96.33 ml LA Area: 28.38 cm^2 LA Vol. Index: 55 ml/m^2 Left Ventricle LVIDd: 4.28 cm LVEDV:60.06 ml LV Septum Diastolic: 1.54 cm LV PW Diastolic: 1.39 cm LVEDV Javed's:76.48 ml LV Length: 8.96 cm LVESV Javed's:34.26 ml LVEF Javed's: 55.1 % LVEDVI: 43 ml/m^2 LVESVI: 19 ml/m^2 LVOT Diameter: 1.98 cm Right Atrium RA Vol. (Sngl Plane): 39.7 ml Right Ventricle RVOT VTI: 22.34 cm TAPSE: 1.72 cmAorta Ao Root S of Charis.: 3.23 cm Ascending Aorta: 4.58 cmDoppler/Quantitative Measurements Mitral Valve MV Peak E-Wave: 0.63 m/s MV Peak A-Wave: 0.97 m/s E/A Ratio: 0.65 Peak Gradient: 1.59 mmHg Deceleration Time: 360.5 msec MV Gris. Peak: Tissue Doppler E' Septal Velocity: 0.03 m/s E/E': 18.39 E' Lateral Velocity: 0.04 m/sAortic Valve Peak Velocity: 1.97 m/s Mean Velocity: 1.2 m/s Peak Gradient: 15.45 mmHg Mean Gradient:7.44 mmHg AV Area (continuity): 3.69 cm^2 AV VTI: 25.64 cm AV DVI: 1.2 LVOT Peak Velocity: 1.87 m/s Peak Gradient: 13.99 mmHg Mean Velocity: 1.19 m/s Mean Gradient: 7.17 mmHg LVOT Diameter: 1.98 cm LVOT VTI: 30.71 cm LVOT Area: 3.08 cm^2 LVOT SV:94.51 ml LVOT CO: 7.66 l/min LVOT CI: 4.35 l/min/m^2 Pulmonic Valve Peak Velocity: 1.32 m/s Peak Gradient: 7.01 mmHgGood Samaritan Hospital2D Echo W/Doppler(CW/PW/Color)2022-11-01 17:30:35Transthoracic Echocardiography Report (TTE) Demographics Patient Name IVÁN Cabello Date of Study 11/01/2022 Gender Female Visit Number [id number] Race Unknown RoomNumber 7516 Number Date of 1975 Referring Physician Katelyn Chavez Age 47 year(s)Manufacturing Process Engineer Bernard Lopez Tape Stringer No Evangelista, Interpreting Ermias Fink RDCS PhysicianMDProcedure Type of Study TTE procedure:2DECHO W DOPPLER(CW/PW/COLOR) (Routine)Indications:Known or suspected cardiomyopathy.Clinical HistoryASTHMA, GERD , HTN , THYROID DISEASE , MIHeight: 62 inches Weight: 74.39 kg (164 lbs) BSA: 1.76 m^2 BMI: 30 kg/m^2HR: 81 bpm BP: 155/94 mmHg Summary The left ventricle is chamber size (by vol index) is normal (female - LVED vol - 29-61ml/m2). Moderate concentricLV hypertrophy. All of the LV segments contract normally . LVEF by Javed's method of disk assessment is normal (55-60%) . Grade 2 diastolic dysfunction (moderately increased LA pressure). High (cardiac index >4 L/min/m2) cardiac output state at rest is noted. Unable to estimate peak systolic PA pressure; inadequate TR velocity signal. Signature Findings Left Ventricle The LV endocardium is adequately visualized. The left ventricle is chamber size (by vol index) is normal (female - LVED vol - 29-61ml/m2). Moderate concentric LV hypertrophy. All of the LV segments contractnormally . Global LV systolic function normal . LVEF by Javed's method of disk assessment is normal (55-60%) . Grade 2 diastolic dysfunction (moderately increased LA pressure). High (cardiac index >4 L/min/m2) cardiac output state at rest is noted. Left Atrium LA size is severely enlarged (>48ml/m2) . Right Ventricle Normal RV size and systolic function. Right Atrium RA size is normal. Atrial Septum Normal interatrial septum by available views. Aortic Valve Normal AoV structure. Early systolic closure by M-mode noted. No evidence of aortic stenosis. No evidence of aortic regurgitation. No evidence of intracavitary obstruction. Mitral Valve Mild mitral annular calcification. Mild MV leaflet thickening. No systolic anterior motion noted. Tricuspid Valve TV structure is normal. No evidence of tricuspid regurgitation. Unable to estimate peak systolic PA pressure; inadequate TR velocity signal. Pulmonic Valve Normal PV structure and function by limited views and Doppler. A trace of pulmonary regurgitation. Aorta Proximal ascending aorta size moderately dilated. 4.6 cm Pericardium No michelle cardial effusion is visualized. IVC/SVC/PA/PV/Pleural The inferior vena cava size is small . The estimated RA pressure by IVC dynamics 0-5mmHg .Chambers/Structures Left Atrium LA Volume: 96.33 ml LA Area: 28.38 cm^2 LA Vol. Index: 55 ml/m^2 Left Ventricle LVIDd: 4.28 cm LVEDV:60.06 ml LV Septum Diastol ic: 1.54 cm LV PW Diastolic: 1.39 cm LVEDV Javed's:76.48 ml LV Length: 8.96 cm LVESV Javed's:34.26 ml LVEF Javed's: 55.1 % LVEDVI: 43 ml/m^2 LVESVI: 19 ml/m^2 LVOT Diameter: 1.98 cm Right AtriumRA Vol. (Sngl Plane): 39.7 ml Right Ventricle RVOT VTI: 22.34 cm TAPSE: 1.72 cmAorta Ao Root S of Charis.: 3.23 cm Ascending Aorta: 4.58 cmDoppler/Quantitative Measurements Mitral Valve MV Peak E-Wave: 0.63 m/s MV Peak A-Wave: 0.97 m/s E/A Ratio: 0.65 Peak Gradient: 1.59 mmHg Deceleration Time: 360.5 msec MV Gris. Peak: Tissue Doppler E' Septal Velocity: 0.03 m/s E/E': 18.39 E' Lateral Velocity: 0.04 m/s Aortic Valve Peak Velocity: 1.97 m/s Mean Velocity: 1.2 m/s Peak Gradient: 15.45 mmHg Mean Gradient: 7.44 mmHg AV Area (continuity): 3.69 cm^2 AV VTI: 25.64 cm AV DVI: 1.2 LVOT Peak Velocity: 1.87 m/sPeak Gradient: 13.99 mmHg Mean Velocity: 1.19 m/s Mean Gradient: 7.17 mmHg LVOT Diameter: 1.98 cm LVOT VTI: 30.71 cm LVOT Area: 3.08 cm^2 LVOT SV:94.51 ml LVOT CO: 7.66 l/min LVOT CI: 4.35 l/min/m^2 Pulmonic Valve Peak Velocity: 1.32 m/s Peak Gradient: 7.01 mmHgColusa Regional Medical CenterODIUM2023-08-17 14:24:36 Test Item Value Reference Range Interpretation Comments SODIUM (BEAKER) (test code = 381) 140 meq/L 136-145 Sculpture Conservator ID - [id number] 10:06:02 Test Item Value Reference Range Interpretation Comments POTASSIUM (BEAKER) (test code = 3.8 meq/L 3.5-5.1 379) Sculpture Conservator ID - [id number] 10:06:01 Test Item Value Reference Range Interpretation Comments MAGNESIUM (BEAKER) (test code = 2.3 mg/dL 1.6-2.6 627) Sculpture Conservator ID - ADMVANCOMYCIN LEVEL, [id number] 09:59:39 Test Item Value Reference Range Interpretation Comments VANCOMYCIN TROUGH (BEAKER) (test 8.4 ug/mL 10.0-20.0 L code = 522) Sculpture Conservator ID - [id number] 04:21:26 Test Item Value Reference Range Interpretation Comments MAGNESIUM (BEAKER) (test code = 2.0 mg/dL 1.6-2.6 627) Sculpture Conservator ID - [id number] 04:21:26 Test Item Value Reference Range Interpretation Comments PHOSPHORUS (BEAKER) (test code = 3.2 mg/dL 2.3-4.7 604) Sculpture Conservator ID - ADMINBASIC METABOLIC [id number] 04:21:25 Test Item Value Reference Range Interpretation [...] not appl icable for dialysis patien ts Sculpture Conservator ID - ADMINCBC W/PLT COUNT & AUTO [id number] 03:36:42 Test Item Value Reference Range Interpretation [...] 0.00-1.00 PERCENT (BEAKER) (test code = 2801) [id number] 00:11:29 Test Item Value Reference Range Interpretation Comments SODIUM (BEAKER) (test code = 381) 139 meq/L 136-145 Sculpture Conservator ID - [id number] 18:25:44 Test Item Value Reference Range Interpretation Comments SODIUM (BEAKER) (test code = 381) 139 meq/L 136-145 Sculpture Conservator ID - esauSARS-CoV2/Influenza/RSV RT-PCR (Symptomatic ONLY)2022-10-31 14:03:24 Test Item Value Reference Interpretation Comments Range SARS-COV2/RT-PCR Negative Negative The SARS-Co V-2 (test code = target nucleic 73089-5) acids are not detected in thi s specimen. Negat yesika results do not preclude SARS-C oV-2 infection and should not be u sed as the sole bas is for patient management decisions. Nega tive results must be combined with clinical observations, patient history , and epidemiolog ical information. A false negative result may occu r if a specimen is improperly collected, transported or handled. This S ARS CoV-2 test is a rapid, real-johan e RT-PCR test intended for e qualitative detection of nucleic acid fr om SARS-CoV-2 in a nasopharyngeal swab specimen colle markie from individual s suspected of COVID-19 by the healthcare provider. Influenza A RT-PCR Negative Negative The Flu A target (test code = [place] [address]151-6) not detected in this specimen. Influenza B RT-PCR Negative Negative The Flu B target (test code = [place] [address]-8) not detected in this specimen. RSV by RT-PCR (test Negative Negative The RSV target code = 97003-2) nucleic acid s are not detected in this specimen. SUE (test code = The presence of SUE) SARS-CoV-2/FLU/RSV viral nucleic acids cannot rule out co-infections or disease caused by other viral or [...] below the analytical limit of detection in this specimen. This Xpert Xpress SARS-CoV-2/Flu/RSV test is a rapid, real-time RT-PCR test intended for the qualitative detection of nucleic acid from Xpert Xpress SARS-CoV-2/Flu/RSV in a nasopharyngeal swab specimen collected from individuals suspected of Xpert Xpress SARS-CoV-2/Flu/RSV by their healthcare provider. Results from [facility] Xpert Xpress SARS-CoV-2/Flu/RSV test should be correlated with the clinical history, epidemiological data, and other data available to the clinician evaluating the patient. Viral nucleic acid may persist in vivo, independent of virus viability. Detection of analyte target(s) does not imply that the corresponding virus(es) are infectious or are the causative agents for clinical symptoms. This test has not been Food and Drug Administration (FDA) cleared or approved and has been authorized by FDA under an Emergency Use Authorization (EUA). This EUA will be effective until the declaration that circumstances exist justifying the authorization of the emergency use of in vitro diagnostic tests for detection and/or diagnosis of COVID-19 is terminated under Section 564(b)(2) of the Act or the EUA is revoked under Section 564(g) of the Act. Fact Sheet for Healthcare Providers:https://w [employer]/Docu ments/Xpert%20Xpres s%20SARS%20CoV-2/Fa ct%20Sheets/302-390 2%94XCSH-XCQ-6%20HE ALTHCARE%20PROVIDER S%20FACT%20SHEET.pd f Fact Sheet for Healthcare Patients:https://[employer]/Docum ents/Xpert%20Xpress %20SARS%20Cov-2/Fac t%20Sheets/302-3801 %44QGTG-COK-7%20PAT IENT%20FACT%20SHEET .pdf Lab Interpretation Normal (test code = 82782-5) [facility]Symptomatic ONLY) 2022-10-31 14:03:24 Test Item Value Reference Interpretation Comments Range SARS-COV2/RT-PCR Negative Negative The SARS-Co V-2 (test code = target nucleic 83669-5) acids are not detected in thi s specimen. Negat yesika results do not preclude SARS-C oV-2 infection and should not be u sed as the sole bas is for patient management decisions. Nega tive results must be combined with clinical observations, patient history , and epidemiolog ical information. A false negative result may occu r if a specimen is improperly collected, transported or handled. This S ARS CoV-2 test is a rapid, real-johan e RT-PCR test intended for th e qualitative detection of nucleic acid fr om SARS-CoV-2 in a nasopharyngeal swab specimen collec markie from individual s suspected of COVID-19 by the ir healthcare provider. Influenza A RT-PCR Negative Negative The Flu A target (test code = [place] [address]-4) not detected in this specimen. Influenza B RT-PCR Negative Negative The Flu B target (test code = [place] 47521-9) not detected in this specimen. RSV by RT-PCR (test Negative Negative The RSV target code = 59891-5) nucleic acid s are not detected in this specimen. SUE (test code = The presence of SUE) SARS-CoV-2/FLU/RSV viral nucleic acids cannot rule out co-infections or disease caused by other viral or [...] below the analytical limit of detection in this specimen. This Xpert Xpress SARS-CoV-2/Flu/RSV test is a rapid, real-time RT-PCR test intended for the qualitative detection of nucleic acid from Xpert Xpress SARS-CoV-2/Flu/RSV in a nasopharyngeal swab specimen collected from individuals suspected of Xpert Xpress SARS-CoV-2/Flu/RSV by their healthcare provider. Results from [facility] Xpert Xpress SARS-CoV-2/Flu/RSV test should be correlated with the clinical history, epidemiological data, and other data available to the clinician evaluating the patient. Viral nucleic acid may persist in vivo, independent of virus viability. Detection of analyte target(s) does not imply that the corresponding virus(es) are infectious or are the causative agents for clinical symptoms. This test has not been Food and Drug Administration (FDA) cleared or approved and has been authorized by FDA under an Emergency Use Authorization (EUA). This EUA will be effective until the declaration that circumstances exist justifying the authorization of the emergency use of in vitro diagnostic tests for detection and/or diagnosis of COVID-19 is terminated under Section 564(b)(2) of the Act or the EUA is revoked under Section 564(g) of the Act. Fact Sheet for Healthcare Providers:https://w ww.[employer]/Docu ments/Xpert%20Xpres s%20SARS%20CoV-2/Fa ct%20Sheets/302-390 2%89OGAY-GOH-1%20HE ALTHCARE%20PROVIDER S%20FACT%20SHEET.pd f Fact Sheet for Healthcare Patients:https://ww w.[employer]/Docum ents/Xpert%20Xpress %20SARS%20Cov-2/Fac t%20Sheets/302-3801 %86DMHO-HIK-8%20PAT IENT%20FACT%20SHEET .pdf Lab Interpretation Normal (test code = 11686-2) [facility]RSV [id number] 14:03:24 Test Item Value Reference Range Interpretation Comments SARS-COV2/RT-PCR Negative Negative The SARS-Co V-2 target (test code = nucleic acids a re not 1827530) detected in thi s specimen. Negat yesika [...] This SARS CoV-2 test is a rapid, real-johan e RT-PCR test intended f or the qualitative det ection of nucleic acid fr om SARS-CoV-2 in a nasopharyngeal swab specimen collec markie from individuals amanda pected of COVID-19 by the [facility] ide. INFLUENZA A RT-PCR Negative Negative The Flu A target nucleic (test code = acids are not d etected in 6455152) this specimen. INFLUENZA B RT-PCR Negative Negative The Flu B target nucleic (test code = acids are not d etected in 4661720) this specimen. RSV RT-PCR (test Negative Negative The RSV tar get nucleic code = 8217493) acids are no t detected in this [...] Xpress SARS-CoV-2/Flu/RSV by their healthcareprovider. Results from [facility] Xpert Xpress SARS-CoV-2/Flu/RSV test should be [...] of the Act.Fact Sheet for Healthcare Providers:https ://www.[employer]/Documents/Xpert%20Xpress%20SARS%20CoV-2/Fact%20Sheets/302390 2%22PYUL-AJS-9%20HEALTHCARE%20PROVIDERS%20FACT%20SHEET.pdfFact Sheet for Healthcare Patients:https://www.[employer]/Docum ents/Xpert%20Xpress%20SARS%20Cov-2/Fact%20Sheets/3023801%22BPSA-OLU-7%20PATIENT %20FACT%20SHEET.arbOMBNOH1471-08-42 12:52:25 Test Item Value Reference Range Interpretation Comments SODIUM (BEAKER) (test code = 381) 135 meq/L 136-145 L Sculpture Conservator ID - [id number] 12:52:24 Test Item Value Reference Range Interpretation Comments MAGNESIUM (BEAKER) (test code = 2.4 mg/dL 1.6-2.6 627) Sculpture Conservator ID - esauPOCT-GLUCOSE [id number] 12:00:51 Test Item Value Reference Range Interpretation Comments POC-GLUCOSE METER 130 mg/dL 70-110 H : TESTED Oscar Art [facility] 6720 (BEAKER) (test code [facility], = 1538) 69460: Sculpture Conservator/Techni smiley ID = [id number] for Latonia Connolly B-TYPE NATRIURETIC FACTOR (BNP)2022-10-31 10:43:21 Test Item Value Reference Range Interpretation Comments B-TYPE NATRIURETIC PEPTIDE (WESLEY) 568 pg/mL 0-100 H (test code = 700) Sculpture Conservator ID - esauVenous doppler legs [id number] 08:29:42PV LAB - Lower Extremities DVT Study Demographics Patient Name IVÁN INIGUEZ Date of Study 10/31/2022 Irineo Age 47 Visit Number [id number] Gender Female Accession Number [id number] Date of 1975 Referring Kathy Zepeda MD Room Number 3620 Physician Manufacturing Process Engineer Wayne Zavala [facility] Interpreting Bia Herbert MD Physician FellowProcedureType of Study: Veins: Lower Extremities DVT Study, VENOUS DOPPLER LEG, BILATERAL.Indications for Study:DVT.Patient Status:Routine.Study Location:Portable.Technical Quality:Adequate visualization.Risk FactorsHistory of Disease+ +----+--------+!Diagnosis !Date!Comments!+ +----+--------+!History/Risk Factors: ! !HTN !+ +----+--------+ImpressionsRight Impression1. There is nodeep venous obstruction in the common femoral, profundafemoral, femoral, popliteal, posterior tibialor peroneal veins.2. There is no superficial venous obstruction in the great saphenous vein.Left Impr ession1. There is no deep venous obstruction in the common femoral, profundafemoral, femoral, popliteal, posterior tibial or peroneal veins.2. There is no superficial venous obstruction in the great saphenous vein. Conclusions Summary Venous duplex imaging and compression of the bilateral lower extremities were performed. The veins were adequately visualized. The bilateral venous systems were patent and compressible with no evidence of thrombus. The venous Doppler waveforms were phasic with respiration . Signature Velocities are measured in cm/s ; Diameters are measured in [facility] [id number] 08:29:42PV LAB - Lower Extremities DVT Study Demographics Patient Name IVÁN INIGUEZ Date of Study 10/31/2022 Irineo Age 47 Visit Number [id number] Gender Female Accession Number [id number] Date of 1975 Referring Kathy Zepeda MD Room Number 7516 Physician Manufacturing Process Engineer Wayne Zavala [facility] Interpreting Bia Herbert MD Physician FellowProcedureType of Study: Veins: Lower Extremities DVT Study, VENOUS DOPPLER LEG, BILATERAL.Indications for Study:DVT.Patient Status:Routine.Study Location:Portable.Technical Quality:Adequate visualization.Risk FactorsHistory of Disease+ +----+--------+!Diagnosis !Date!Comments!+ +----+--------+!History/Risk Factors: ! !HTN !+ +----+--------+ImpressionsRight Impression1. There is no deep venous obstruction in the common femoral, profundafemoral, femoral, popliteal, posterior tibial or peroneal veins.2. There is no superficial venous obstruction in the great saphenous vein.Left Imp ression1. There is no deep venous obstruction in the common femoral, profundafemoral, femoral, popliteal, posterior tibial or peroneal veins.2. There is no superficial venous obstruction in the great saphenous vein. Conclusions Summary Venous duplex imaging and compression of the bilateral lower extremities were performed. The veins were adequately visualized. The bilateral venous systems were patentand compressible with no evidence of thrombus. The venous Doppler waveforms were phasic with respiration . Signature Velocities are measured in cm/s ; Diameters are measured in [facility] do[facility] arms [id number] 08:29:21PV LAB - Upper Extremities Veins Demographics Patient Name IVÁN INIGUEZ Date of Study 10/31/2022L Age 47 Visit Number [id number] Gender Female Accession Number [id number] Date of Birth1975 Referring Kathy Zepeda MD Room Number 7516 Physician Manufacturing Process Engineer Wayne Zavala [facility] Interpreting Bia Herbert MD Physician FellowProcedureType of Study: Veins: Upper Extremities Veins, VENOUS DOPPLER ARMS, BILATERAL.Indications for Study:Evaluate for DVT.Patient Status:Routine.Study Location:Portable.Technical Quality:Adequate visualization. - Results were reported to:Qasim Osuna, VIKTORIA @3:42 am on 10/31/22.Risk FactorsHistory of Disease+ ---------+----+--------+!Diagnosis !Date!Comments!+ +----+--------+!History/Risk Factors: ! !HTN !+ +----+--------+ImpressionsRight Impression1. There is no deep venous obstruction in the jugular, subclavian, axillary,brachial, radial or ulnar veins.2. There is partial echolucent superficial venous obstruction in thecephalic vein.3. There is no superficial venous obstruction in the basilic veins.Left Impression1. There is no deep venous obstruction in the jugular, subclavian, axillary,brachial, radial or ulnar veins.2. There is no superficial venous obstruction in the cephalic or basilicveins. Conclusions Summary Venous duplex imaging and compression of the bilateral upper extremities was performed. The veins were adequately visualized. The bilateral deep venous systems were patent and compressible with no evidence of thrombus. The right superficial venous system was positive with acute thrombus. The left superficial venous system was patent and compressible with no evidence ofthrombus. Signature Velocities are measured in cm/s ; Diameters are measured in [facility] do[facility] arms [id number] 08:29:21PV LAB - Upper Extremities Veins Demographics Patient Name IVÁN INIGUEZ Date of Study 10/31/2022L Age 47 Visit Number [id number] Gender Female Accession Number [id number] Date of 1975 Referring Kathy Zepeda MD Room Number 2136 Physician Manufacturing Process Engineer Wayne Zavala [facility] Interpreting Bia Herbert MD Physician FellowProcedureType of Study: Veins: Upper Extremities Veins, VENOUS DOPPLER ARMS, BILATERAL.Indications for Study:Evaluate for DVT.Patient Status:Routine.Study Location:Portable.Technical Quality:Adequate visualization. - Results were reported to:VIKTORIA Akins @ 3:42 am on 10/31/22.Risk FactorsHistory of Disease+ --------+----+--------+!Diagnosis !Date!Comments!+ ---------+----+--------+!History/Risk Factors: ! !HTN !+ +----+--------+ImpressionsRight Impression1. There is no deep venous obstruction in the jugular, subclavian, axillary,brachial, radial or ulnar veins.2. There is partial echolucent superficial venous obstruction in thecephalic vein.3. There is no superficial venous obstruction in the basilic veins.Left Impression1. There is no deep venous obstruction in the jugular, subclavian, axillary,brachial, radial or ulnar veins.2. There is no superficial venous obstruction in the cephalic or basilicveins. Conclusions Summary Venous duplex imaging and compression of the bilateral upper extremities was performed. The veins were adequately visualized. The bilateral deep venous systems were patent and compressible with no evidence of thrombus. The right superficial venous system was positive with acute thrombus. The left superficial venous system was patent and compressible with no evidence of thrombus. Signature Velocities are measured in cm/s ; Diameters are measured in [facility] [id number] 05:07:29 Test Item Value Reference Range Interpretation Comments MAGNESIUM (BEAKER) (test code = 1.9 mg/dL 1.6-2.6 627) Sculpture Conservator ID - [id number] 05:07:29 Test Item Value Reference Range Interpretation Comments PHOSPHORUS (BEAKER) (test code = 3.7 mg/dL 2.3-4.7 604) Sculpture Conservator ID - ADMINBASIC METABOLIC [id number] 05:07:28 Test Item Value Reference Range Interpretation [...] not appl icable for dialysis patien ts Sculpture Conservator ID - ADMINCBC W/PLT COUNT & AUTO [id number] 04:47:13 Test Item Value Reference Range Interpretation [...] 0.00-1.00 PERCENT (BEAKER) (test code = 2801) [id number] 23:06:40 Test Item Value Reference Range Interpretation Comments SODIUM (BEAKER) (test code = 381) 133 meq/L 136-145 L Sculpture Conservator ID - ADMINHIGH SENSITIVITY TROPONIN [id number] 22:59:43 Test Item Value Reference Range Interpretation Comments HIGH SENSITIVITY 92 pg/ml See_Comment H [Automated message] TROPONIN I (test code = The system which 1502156) generated this result transmitted ref erence range: <=17. Th e reference range was not used to int erpret this result as normal/abnormal . Sculpture Conservator ID - ADMINThe ACCOUNT DEVELOPMENT EXECUTIVE STAT High Sensitivity Troponin-I results should be used in conjunction with other diagnostic information such as ECG, clinical observations and information, and patientsymptoms to aid in the diagnosis of NH. XR ABDOMEN/KUB 1 VIEW [id number] 18:54:45 [facility] : 1975 Sex: FTECHNIQUE: XR ABDOMEN/KUB 1 VIEW PORTABLEINDICATION: corpak placement.COMPARISON: 10/29/2022FINDINGS:Feeding tube tip projecting over the body of the stomach. No specificevidence for bowel obstruction. Cholecystectomy clips are noted. Supineradiographs are insensitive for detection of free intraperitoneal ai r.IMPRESSION:Feeding tube tip projects over the body of the stomach.Electronically Signed By: Mo Soares10/30/2022 18:56 CDTWorkstation Name: [id number] SENSITIVITY TROPONIN [id number] 17:30:01 Test Item Value Reference Range Interpretation Comments HIGH SENSITIVITY 123 pg/ml See_Comment H [Automated message] TROPONIN I (test code The sy stem which = 0880220) generated this result transmitted ref erence range: <=17. Th e reference range was not used to int erpret this result as normal/abnormal . Sculpture Conservator ID - BSThe ACCOUNT DEVELOPMENT EXECUTIVE STAT High Sensitivity Troponin-I results should be used in conjunctionwith other diagnostic information such as ECG, clinical observations and information, and patient symptoms to aid in the diagnosis of NH.Lactic Acid, [id number] 17:25:59 Test Item Value Reference Range Interpretation Comments Lactate, Art (test code = 1.0 mmol/L 0.5-2.0 4) SUE (test code = SUE) Sculpture Conservator ID - ADMIN Lab Interpretation (test Normal code = 44127-1) [facility] HospitalL[facility], [id number] 17:25:59 Test Item Value Reference Range Interpretation Comments Lactate, Art (test code = 1.0 mmol/L 0.5-2.0 4) SUE (test code = SUE) Sculpture Conservator ID - ADMIN Lab Interpretation (test Normal code = 16129-2) [facility] HospitalLACTIC ACID, [id number] 17:25:59 Test Item Value Reference Range Interpretation Comments LACTATE BLOOD ARTERIAL (2) 1.0 mmol/L 0.5-2.0 (BEAKER) (test code = 2874) Sculpture Conservator ID - [id number] 17:21:36 Test Item Value Reference Range Interpretation Comments SODIUM (BEAKER) (test code = 381) 136 meq/L 136-145 Sculpture Conservator ID - ADMINBLOOD GAS, [id number] 14:46:08 Test Item Value Reference Range Interpretation [...] FIO2 (BEAKER) (test code = 1819) 100.0 [id number] 12:47:53 Test Item Value Reference Range Interpretation Comments SODIUM (BEAKER) (test code = 381) 137 meq/L 136-145 Sculpture Conservator ID - JSLACTIC ACID, [id number] 12:47:37 Test Item Value Reference Range Interpretation Comments LACTATE BLOOD 2.3 mmol/L 0.5-2.0 H Specimen sligh tly ARTERIAL (2) (BEAKER) hemoly zed (test code = 2874) Sculpture Conservator ID - JSBLOOD GAS, [id number] 12:23:19 Test Item Value Reference Range Interpretation [...] FIO2 (BEAKER) (test code = 1819) 100.0 [id number] 11:15:25 Test Item Value Reference Range Interpretation Comments PROCALCITONIN (BEAKER) (test code 0.05 ng/mL <0.05 H = 3036) SEPSIS RISK (ng/mL)Low: 0.05-0.50Intermediate: 0.51-2.00High: >=2.01HIGH SENSITIVITY TROPONIN [id number] 11:10:59 Test Item Value Reference Range Interpretation Comments HIGH SENSITIVITY 139 pg/ml See_Comment H [Automated message] TROPONIN I (test code The sy stem which = 4194138) generated this result transmitted ref erence range: <=17. Th e reference range was not used to int erpret this result as normal/abnormal . Sculpture Conservator ID - JSThe ACCOUNT DEVELOPMENT EXECUTIVE STAT High Sensitivity Troponin-I results should be used in conjunctionwith other diagnostic information such as ECG, clinical observations and information, and patient symptoms to aid in the diagnosis of NH.XR CHEST 1 VIEW PORTABLE / [id number] 10:47:01 [facility] : 1975 Sex: FCLINICAL HISTORY: desaturationTECHNIQUE: 1 view of the chest.COMPARISON: 10/29/2022IMPRESSION:ETT no longer seen. New feeding tube below the diaphragm. Right centralline remains in the right atrium. There are mildly increased bilaterallower lung airspace opacities with blunting of both costophrenic angles.The cardiomediastinal silhouette is magnified by technique.Electronically Signed By: Yeyo Mills10/30/2022 10:49 CDTWorkstation Name: [id number] BRAIN WITHOUT IV [id number] 09:21:03 [facility] : 1975 Sex: FCT BRAIN WITHOUT IV [...] Signed By: Luís Mclain10/30/2022 09:23 CDTWorkstation Name: [id number] 04:21:01 Test Item Value Reference Range Interpretation Comments PHOSPHORUS (BEAKER) (test code = 3.2 mg/dL 2.3-4.7 604) Sculpture Conservator ID - EMBASIC METABOLIC [id number] 04:21:00 Test Item Value Reference Range Interpretation [...] not appl icable for dialysis patien ts Sculpture Conservator ID - [id number] 04:21:00 Test Item Value Reference Range Interpretation Comments MAGNESIUM (BEAKER) (test code = 1.7 mg/dL 1.6-2.6 627) Sculpture Conservator ID - EMCBC W/PLT COUNT & AUTO [id number] 03:30:03 Test Item Value Reference Range Interpretation [...] 0.00-1.00 PERCENT (BEAKER) (test code = 2801) [id number] 00:34:48 Test Item Value Reference Range Interpretation Comments SODIUM (BEAKER) (test code = 381) 137 meq/L 136-145 Sculpture Conservator ID - ADMINXR ABDOMEN/KUB 1 VIEW [id number] 18:55:43 [facility] : 1975 Sex: FTECHNIQUE: [...] Signed By: Mo Soares10/29/2022 18:57 CDTWorkstation Name: [id number] 2022-10-29 18:31:20 Test Item Value Reference Range Interpretation Comments SODIUM (BEAKER) (test code = 381) 138 meq/L 136-145 Sculpture Conservator ID - ADMINCreatinine, random [id number] 15:21:04 Test Item Value Reference Range Interpretation Comments Creatinine, Ur 24.5 mg/dL (test code = 2161-8) SUE (test code = Reference Range: No SUE) NormalsOperator ID - ADMIN [facility] HospitalCreatinine, random [id number] 15:21:04 Test Item Value Reference Range Interpretation Comments Creatinine, Ur 24.5 mg/dL (test code = 2161-8) SUE (test code = Reference Range: No SUE) NormalsOperator ID - ADMIN [facility] HospitalCREATININE, RANDOM [id number] 15:21:04 Test Item Value Reference Range Interpretation Comments CREATININE URINE (BEAKER) (test 24.5 mg/dL code = 375) Reference Range: No NormalsOperator ID - ADMINRapid drug screen, [id number] 14:06:15 Test Item Value Reference Range Interpretation Comments Barbiturate Screen Negative Negative (test code = 57849-6) Benzodiazepine Screen Negative Negative (test code = 97361-2) Cocaine (Metab.) Negative Negative Screen (test code = 3397-7) Methadone Screen (test Negative Negative code = 07196-7) Opiate Screen (test Negative Negative code = 51510-1) Cannabinoid Screen Negative Negative (test code = 69274-0) Amph/Methamph Screen Positive Negative A (test code = 52557-4) Phencyclidine Screen Negative Negative (test code = 08246-2) pH, UA (test code = 6.0 5.0-8.0 5803-2) SUE (test code = SUE) DRUG CUTOFF CONC.Cocaine 300 ng/mL Cannabinoid 50 ng/mLBenzodiazepine 200 ng/mLBarbiturate 200 ng/mLPhencyclidine 25 ng/mLOpiate 300 ng/mLMethadone 300 ng/mLAmphetamine/ 1000 ng/mL Methamphetamine This assay provides an unconfirmed qualitative test result for the clinical management of patients in emergency situations. Chain of custody not maintained. Some hphp-ebf-pkqvjqq medications, as well as adulterants, may cause inaccurate results. Clinical correlation should be applied. A more comprehensive drug screen or confirmation of a detected drug may be performed upon request.Sculpture Conservator ID - JSOperator ID - [auto] Lab Interpretation Abnormal (test code = 66158-4) [facility] HospitalRapid drug screen, [id number] 14:06:15 Test Item Value Reference Range Interpretation Comments Barbiturate Screen Negative Negative (test code = 40637-3) Benzodiazepine Screen Negative Negative (test code = 56065-1) Cocaine (Metab.) Negative Negative Screen (test code = 3397-7) Methadone Screen (test Negative Negative code = 72983-7) Opiate Screen (test Negative Negative code = 71488-7) Cannabinoid Screen Negative Negative (test code = 49190-3) Amph/Methamph Screen Positive Negative A (test code = 48324-0) Phencyclidine Screen Negative Negative (test code = 41915-3) pH, UA (test code = 6.0 5.0-8.0 5803-2) SUE (test code = SUE) DRUG CUTOFF CONC.Cocaine 300 ng/mL Cannabinoid 50 ng/mLBenzodiazepine 200 ng/mLBarbiturate 200 ng/mLPhencyclidine 25 ng/mLOpiate 300 ng/mLMethadone 300 ng/mLAmphetamine/ 1000 ng/mL Methamphetamine This assay provides an unconfirmed qualitative test result for the clinical management of patients in emergency situations. Chain of custody not maintained. Some bewn-rre-naqusxg medications, as well as adulterants, may cause inaccurate results. Clinical correlation should be applied. A more comprehensive drug screen or confirmation of a detected drug may be performed upon request.Sculpture Conservator ID - JSOperator ID - [auto] Lab Interpretation Abnormal (test code = 72336-4) [facility] HospitalRAPID DRUG SCREEN, [id number] 14:06:15 Test Item Value Reference Range Interpretation [...] situations. Chain of custody not maintained. Some jisp-eas-tpqoyzo medications, as well as adulterants, may cause inaccurate results. Clinical correlation should be applied. A more comprehensive drug screen or confirmation of a detected drug may be performed upon request.Sculpture Conservator ID - JSOperator ID - [auto] HEMOGLOBIN [id number] 13:23:17 Test Item Value Reference Range Interpretation [...] 5.7- 6.4% indicates increased risk for diabetes (prediabetes)."Sculpture Conservator ID - ADMOperator ID - ADMCTA [id number] 13:16:45CT BRAIN WITHOUT IV CONTRAST, CTA CAROTID, CTA BRAINBRAIN CT WITHOUT CONTRAST INDICATION: Unlisted Reason for Exam, intraparenchymal hematoma COMPARISON: None TECHNIQUE:Rapid acquisition spiral images were obtained between the aortic archand the cranial vertex during intravenous contrast infusion toreconstruct axial images and angiographic 3D maximum intensityprojections (MIP). 3-D volumetric reformatted images were created at [employer] workstation. Precontrast images of the brain were alsoobtained. Stenosis evaluation reported in compliance with NASCET criteria. DOSE REDUCTION: Dose modulation, iterative reconstruction, and/orweight-based adjustment of the mA/kV was utilized to reduce theradiation dose to as low as reasonably achievable. FINDINGS:CT BRAIN:Intraparenchymal hematoma centered in the right subinsular regionmeasuring 5.4 x 5.8 x 2.7 cm. Small adjacent hemorrhages are seen in theright central white matter and basal ganglia. Midline structures are normally developed. Diffuse senescent parenchymal volume loss.No hydrocephalus. Effacement of the right lateral ventricle.Small volume in traventricular hemorrhageAtherosclerotic calcification of the intracranial internal carotid andvertebral arteries. Orbits are within normal limits. No obstructive paranasal sinus disease. CTA BRAIN:Internal carotid arteries: Petrous, cavernous and supraclinoid portionspatent. Middle cerebral arteries: Patent to distal branches.Anterior cerebral arteries: Patent. No A-comm aneurysm.Basilar system: Patent vertebrobasilar system.Posterior cerebral arteries:Patent P1 and P2 segments. Venous opacification: Major dural sinuses unremarkable for bolus timing.Additional findings: None. CTA NECK:Common carotid arteries: The common carotid arteries are normal in size. Bifurcations: No flow- limiting stenosis.Cervical internal carotid arteries: No flow limiting stenosis.Tortuosity of the bilateral cervical segments.Vertebral arteries: Hypoplastic left vertebral artery. Bifurcation ofthe left vertebral artery at the left C4-C5 level, with origins at theaortic arch and left subclavian artery.Arch anatomy: Conventional. Nonvascular findings:Osseous structures: No acute osseous abnormality. Intact calvarium andskull base. Dental caries and periapical abscesses in the molar teethbilaterally.Cervical soft tissues: No adenopathy. Patent aerodigestive tract.Lung apices: Bilateral airspace and interstitial opacities, which mayrepresent atelectasis, pneumonia or pulmonary edema.[facility] HospitalCTA [id number] 13:16:45CT BRAIN WITHOUT IV CONTRAST, CTA CAROTID, CTA BRAINBRAIN CT WITHOUT CONTRAST INDICATION: Unlisted Reason for Exam, intraparenchymal hematoma COMPARISON: None TECHNIQUE:Rapid acquisition spiral images were obtained between the aortic archand the cranial vertex during intravenous contrast infusion toreconstruct axial images and angiographic 3D maximum intensityprojections (MIP). 3-D volumetric reformatted images were created at [employer] workstation. Precontrast images of the brain were alsoobtained. Stenosis evaluation reported in compliance with NASCET criteria. DOSE REDUCTION: Dose modulation, iterative reconstruction, and/orweight-based adjustment of the mA/kV was utilized to reduce theradiation dose to as low as reasonably achievable. FINDINGS:CT BRAIN:Intraparenchymal hematoma centered in the right subinsular [...] within normal limits. No obstructive paranasal sinus disease. CTA BRAIN:Inte rnal carotid arteries: Petrous, cavernous and supraclinoid portionspatent. Middle cerebral arteries:Patent to distal branches.Anterior cerebral arteries: Patent. No A-comm aneurysm.Basilar system: Patent vertebrobasilar system.Posterior cerebral arteries:Patent P1 and P2 segments. Venous opacification: Major dural sinuses unremarkable for bolus timing.Additional findings: None. CTA NECK:Common carotid arteries: The common carotid arteries are normal in size. Bifurcations: No flow-limiting stenosis.Cervical internal carotid arteries: No flow limiting stenosis.Tortuosity of the bilateral cervical segments.Vertebral arteries: Hypoplastic left vertebral artery. Bifurcation ofthe left vertebral artery at the left C4-C5 level, with origins at theaortic arch and left subclavian artery.Arch anatomy: Conventional. Nonvascular findings:Osseous structures: No acute osseous abnormality. Intact calvarium an dskull base. Dental caries and periapical abscesses in the molar teethbilaterally.Cervical soft tissues: No adenopathy. Patent aerodigestive tract.Lung apices: Bilateral airspace and interstitial opacities, which mayrepresent atelectasis, pneumonia or pulmonary edema.[facility] HospitalCTA [id number] 13:16:45CT BRAIN WITHOUT IV CONTRAST, CTA CAROTID, CTA BRAINBRAIN CT WITHOUT CONTRAST INDICATION: Unlisted Reason for Exam, intraparenchymal hematoma COMPARISON: None TECHNIQUE:Rapid acquisition spiral images were obtained between the aortic archand the cranial vertex during intravenous contrast infusion toreconstruct axial images and angiographic 3D maximum intensityprojections (MIP). 3-D volumetric reformatted images were created at [employer] workstation. Precontrast images of the brain were alsoobtained. Stenosis evaluation reported in compliance with NASCET criteria. DOSE REDUCTION: Dose modulation, iterative reconstruction, and/orweight-based adjustment of the mA/kV was utilized to reduce theradiation dose to as low as reasonably achievable. FINDINGS:CT BRAIN:Intraparenchymal hematoma centered in the right subinsular regionmeasuring 5.4 x 5.8 x 2.7 cm. Small adjacent hemorrhages are seen in theright central white matter and basal ganglia. Midline structures are normally developed. Diffuse senescent parenchymal volume loss.No hydrocephalus. Effacement of the right lateral ventricle.Small volume in traventricular hemorrhageAtherosclerotic calcification of the intracranial internal carotid andvertebral arteries. Orbits are within normal limits. No obstructive paranasal sinus disease. CTA BRAIN:Internal carotid arteries: Petrous, cavernous and supraclinoid portionspatent. Middle cerebral arteries: Patent to distal branches.Anterior cerebral arteries: Patent. No A-comm aneurysm.Basilar system: Patent vertebrobasilar system.Posterior cerebral arteries:Patent P1 and P2 segments. Venous opacification: Major dural sinuses unremarkable for bolus timing.Additional findings: None. CTA NECK:Common carotid arteries: The common carotid arteries are normal in size. Bifurcations: No flow- limiting stenosis.Cervical internal carotid arteries: No flow limiting stenosis.Tortuosity of the bilateral cervical segments.Vertebral arteries: Hypoplastic left vertebral artery. Bifurcation ofthe left vertebral artery at the left C4-C5 level, with origins at theaortic arch and left subclavian artery.Arch anatomy: Conventional. Nonvascular findings:Osseous structures: No acute osseous abnormality. Intact calvarium andskull base. Dental caries and periapical abscesses in the molar teethbilaterally.Cervical soft tissues: No adenopathy. Patent aerodigestive tract.Lung apices: Bilateral airspace and interstitial opacities, which mayrepresent atelectasis, pneumonia or pulmonary edema.[facility] HospitalCTA [id number] 13:16:45CT BRAIN WITHOUT IV CONTRAST, CTA CAROTID, CTA BRAINBRAIN CT WITHOUT CONTRAST INDICATION: Unlisted Reason for Exam, intraparenchymal hematoma COMPARISON: None TECHNIQUE:Rapid acquisition spiral images were obtained between the aortic archand the cranial vertex during intravenous contrast infusion toreconstruct axial images and angiographic 3D maximum intensityprojections (MIP). 3-D volumetric reformatted images were created at [employer] workstation. Precontrast images of the brain were alsoobtained. Stenosis evaluation reported in compliance with NASCET criteria. DOSE REDUCTION: Dose modulation, iterative reconstruction, and/orweight-based adjustment of the mA/kV was utilized to reduce theradiation dose to as low as reasonably achievable. FINDINGS:CT BRAIN:Intraparenchymal hematoma centered in the right subinsular [...] within normal limits. No obstructive paranasal sinus disease. CTA BRAIN:Internal carotid arteries: Petrous, cavernous and supraclinoid portionspatent. Middle cerebral arteries:Patent to distal branches.Anterior cerebral arteries: Patent. No A-comm aneurysm.Basilar system: Patent vertebrobasilar system.Posterior cerebral arteries:Patent P1 and P2 segments. Venous opacification: Major dural sinuses unremarkable for bolus timing.Additional findings: None. CTA NECK:Common carotid arteries: The common carotid arteries are normal in size. Bifurcations: No flow-limiting stenosis.Cervical internal carotid arteries: No flow limiting stenosis.Tortuosity of the bilateral cervical segments.Vertebral arteries: Hypoplastic left vertebral artery. Bifurcation ofthe left vertebral artery at the left C4-C5 level, with origins at theaortic arch and left subclavian artery.Arch anatomy: Conventional. Nonvascular findings:Osseous structures: No acute osseous abnormality. Intact calvarium andskull base. Dental caries and periapical abscesses in the molar teethbilaterally.Cervical soft tissues: No adenopathy. Patent aerodigestive tract.Lung apices: Bilateral airspace and interstitial opacities, which mayrepresent atelectasis, pneumonia or pulmonary edema.[facility] HospitalCTA [id number] 13:16:45 [facility] : 1975 Sex: FCT BRAIN WITHOUT IV CONTRAST, CTA CAROTID, CTA BRAINBRAIN CT WITHOUT CONTRASTINDICATION: Unlisted Reason for Exam, intraparenchymal hematomaCOMPARISON: NoneTECHNIQUE:Rapid acquisition spiral images were obtained between the aortic archand the cranial vertex during intravenous contrast infusion toreconstruct axial images and angiographic 3D maximum intensityprojections (MIP). 3-D volumetric reformatted images were created at [employer] workstation. Precontrast images of the brain were [...] Signed By: Luís Mclain10/29/2022 13:18 CDTWorkstation Name: [id number] BRAIN WITHOUT IV [id number] 13:16:45 [facility] : 1975 Sex: FCT BRAIN WITHOUT IV CONTRAST, CTA CAROTID, CTA BRAINBRAIN CT WITHOUT CONTRASTINDICATION: Unlisted Reason for Exam, intraparenchymal hematomaCOMPARISON: NoneTECHNIQUE:Rapid acquisition spiral images were obtained between the aortic archand the cranial vertex during intravenous contrast infusion toreconstruct axial images and angiographic 3D maximum intensityprojections (MIP). 3-D volumetric reformatted images were created at [employer] workstation. Precontrast images of the brain were [...] Signed By: Luís Mclain10/29/2022 13:18 CDTWorkstation Name: [id number] 13:16:45[facility] IVÁNLAWGEETHA L : 1975 Sex: FCT BRAIN WITHOUT IV CONTRAST, CTA CAROTID, CTA BRAINBRAIN CT WITHOUT CONTRASTINDICATION: Unlisted Reason for Exam, intraparenchymal hematomaCOMPARISON: NoneTECHNIQUE:Rapid acquisition spiral images were obtained between the aortic archand the cranial vertex during intravenous contrast infusion toreconstruct axial images and angiographic 3D maximum intensityprojections (MIP). 3-D volumetric reformatted images were created at [employer] workstation. Precontrast images of the brain were [...] Signed By: Luís Mclain10/29/2022 13:18 CDTWorkstation Name: [id number], QUANTITATIVE, [id number] 13:15:24 Test Item Value Reference Range Interpretation Comments GONADOTROPIN, CHORIONIC (HCG) QUANT < mIU/mL 0-10 (BEAKER) (test code = 649) Non- Females: <10 mIU/mL Females: Gestation Age Reference Range(mIU/mL) 0.2-1 Week 5-50 1-2 Weeks 50-500 2-3 Weeks 100-5,000 3-4 Weeks 500-10,000 4-5 Weeks 1,000-50,000 5-6 Weeks 10,000-100,000 6-8 Weeks 15,000- 200,000 2-3 Months 10,000-100,000 Sculpture Conservator ID - Jorgelihina, [id number] 13:07:55 Test Item Value Reference Range Interpretation Comments Osmolality, Ur (test code 529 See_Comment [ Automated message] = 2695-5) The system [employer] generated this result transmitted ref erence range: 50-1,200 mOsm/kg mOsm/kg . The reference range was not used to int erpret this result as normal/abnormal . Lab Interpretation (test Normal code = 91912-6) [facility] HospitalOsmolality, [id number] 13:07:55 Test Item Value Reference Range Interpretation Comments Osmolality, Ur (test code 529 See_Comment [ Automated message] = 2695-5) The system [employer] generated this result transmitted ref erence range: 50-1,200 mOsm/kg mOsm/kg . The reference range was not used to int erpret this result as normal/abnormal . Lab Interpretation (test Normal code = 54729-0) [facility] HospitalOSMOLALITY, [id number] 13:07:55 Test Item Value Reference Range Interpretation Comments OSMOLALITY URINE 529 mOsm/kg See_Comment [Automated message] (BEAKER) (test code = The sy stem which 614) generated this result transmitted ref erence range: 50-1,200 mOsm/kg. The reference range was not used to int erpret this result as normal/abnormal . Urea Nitrogen, random [id number] 12:57:04 Test Item Value Reference Range Interpretation Comments Urea Nitrogen, Ur 186 mg/dL (test code = 3095-7) SUE (test code = Reference Range: No SUE) NormalsOperator ID - JS [facility] HospitalUrea Nitrogen, random [id number] 12:57:04 Test Item Value Reference Range Interpretation Comments Urea Nitrogen, Ur 186 mg/dL (test code = 3095-7) SUE (test code = Reference Range: No SUE) NormalsOperator ID - JS [facility] HospitalUREA NITROGEN, RANDOM [id number] 12:57:04 Test Item Value Reference Range Interpretation Comments UREA NITROGEN URINE (BEAKER) (test 186 mg/dL code = 538) Reference Range: No NormalsOperator ID - JSSodium, random [id number] 12:57:03 Test Item Value Reference Range Interpretation Comments Sodium Urine (test 155 meq/L code = 2955-3) SUE (test code = Reference Range: No SUE) NormalsOperator ID - JS [facility] Centerodium, random [id number] 12:57:03 Test Item Value Reference Range Interpretation Comments Sodium Urine (test 155 meq/L code = 2955-3) SUE (test code = Reference Range: No SUE) NormalsOperator ID - JS [facility] CenterODIUM, RANDOM [id number] 12:57:03 Test Item Value Reference Range Interpretation Comments SODIUM URINE (BEAKER) (test code = 155 meq/L 243) Reference Range: No NormalsOperator ID - JSOSMOLALITY, [id number] 12:52:21 Test Item Value Reference Range Interpretation Comments OSMOLALITY, SERUM (BEAKER) (test 290 mOsm/kg 275-295 code = 615) [id number] 12:52:14 Test Item Value Reference Range Interpretation Comments SODIUM (BEAKER) (test code = 381) 140 meq/L 136-145 Sculpture Conservator ID - MARCOPregnancy Screen, [id number] 09:52:55 Test Item Value Reference Range Interpretation Comments Preg Test, Ur (test code = 2112-1) Negative Negative Lab Interpretation (test code = Normal 92836-3) [facility] HospitalPregnancy Screen, [id number] 09:52:55 Test Item Value Reference Range Interpretation Comments Preg Test, Ur (test code = 2112-1) Negative Negative Lab Interpretation (test code = Normal 73404-3) [facility] HospitalPREGNANCY SCREEN, [id number] 09:52:55 Test Item Value Reference Range Interpretation Comments TEST URINE (BEAKER) (test Negative Negative code = 583) BLOOD GAS, [id number] 08:02:40 Test Item Value Reference Range Interpretation [...] (BEAKER) (test code = 1819) 40.0 T4, [id number] 06:13:37 Test Item Value Reference Range Interpretation Comments FREE T4 (BEAKER) (test code = 655) 0.90 ng/dL 0.70-1.48 Sculpture Conservator ID - ADMINTSH/FREE T4 IF [id number] 05:34:42 Test Item Value Reference Range Interpretation Comments THYROID STIMULATING HORMONE 6.331 uIU/mL 0.350-4.940 H (BEAKER) (test code = 772) Sculpture Conservator ID - [id number] 05:26:57 Test Item Value Reference Range Interpretation Comments MAGNESIUM (BEAKER) (test code = 1.8 mg/dL 1.6-2.6 627) Sculpture Conservator ID - [id number] 05:26:57 Test Item Value Reference Range Interpretation Comments PHOSPHORUS (BEAKER) (test code = 3.0 mg/dL 2.3-4.7 604) Sculpture Conservator ID - MARCOCOMPREHENSIVE METABOLIC [id number] 05:26:56 Test Item Value Reference Range Interpretation [...] not appl icable for dialysis patien ts Sculpture Conservator ID - MARCOXR CHEST 1 VIEW PORTABLE / [id number] 05:03:50 [facility]ENTERName: GEETHA MINOR Irineo : 1975 Sex: FXR CHEST 1 VIEW [...] Signed By: Jaziel Monte10/29/2022 05:05 CDTWorkstation Name: [id number] 04:56:04 Test Item Value Reference Range Interpretation Comments PARTIAL THROMBOPLASTIN TIME 30.4 seconds 22.5-36.0 (BEAKER) (test code = 760) PROTHROMBIN TIME/[id number] 04:55:22 Test Item Value Reference Range Interpretation Comments PROTIME (BEAKER) 13.6 seconds 11.9-14.2 (test code = 759) INR (BEAKER) (test 1.06 See_Comment [Automat ed message] code = 370) The system [employer] generated this result transmitted ref erence range: <=5.90. The reference range was not used to int erpret this result as normal/abnormal . RECOMMENDED COUMADIN/WARFARIN INR THERAPY RANGESSTANDARD DOSE: 2.0 - 3.0 Includes: PROPHYLAXIS for venous thrombosis, systemic embolization; TREATMENT for venous thrombosis and/or pulmonary embolus.HIGH RISK: Target INR is 2.5-3.5 for patients with mechanical heart valves.CBC W/PLT COUNT & AUTO [id number] 04:50:18 Test Item Value Reference Range Interpretation [...] (BEAKER) (test code = 2801) BLOOD GAS, [id number] 04:03:20 Test Item Value Reference Range Interpretation [...] (BEAKER) (test code = 1819) 60.0 CALCIUM, [id number] 03:59:22 Test Item Value Reference Range Interpretation Comments CALCIUM IONIZED (BEAKER) (test 1.09 mmol/L 1.12-1.27 L code = 698) PH, BLOOD (BEAKER) (test code = 7.33 1810) [facility] [id number] 03:47:51Murray Elise NP 10/29/2022 3:48 AMCentral Line Date/Time: 10/29/2022 3:47 AMPerformed by: Murray Elise NPAuthorized by: Murray Elise NP Consent: The procedure was performed in an emergent situation. Relevant documents: relevant documents present and verifiedTest results: test results available and properly labeledSite marked: the operative site was markedImaging studies: imaging studies availableRequired items: required blood products, implants, devices, and special equipment availablePatient identity confirmed: arm bandTime out: Immediately prior to procedure a "time out" was called to verify the correct patient, procedure, equipment, residential support specialist and site/side marked as required.Indications:vascular accessAnesthesia: local infiltration Anesthesia:Local Anesthetic: lidocaine 2% without epine phrinePreparation: skin prepped with 2% chlorhexidineLocation details: right internal jugularPatientposition: flatCatheter type: triple lumenPre-procedure: landmarks identifiedUltrasound guidance: yesSterile ultrasound techniques: sterile gel and sterile probe covers were usedNumber of attempts: 1Successful placement: yesPost-procedure: line sutured and dressing appliedAssessment: blood return through all ports, free fluid flow, placement verified by x-ray and no pneumothorax on x-rayPatient tolerance: patient tolerated the procedure well with no immediate complications Immediate Post-Procedure Note Assistants to the procedure: NonePre-procedure diagnosis: ICHPost-procedure diagnosis: ICHProcedures Performed: Central LineSpecimens removed: NoneEstimated blood loss (mL): NoneComplications: NoneType of anesthesia: NoneGrafts or Implants: [facility] CenterCentral [id number] 03:47:51Murray Elise NP 10/29/2022 3:48 AMCentral Line Date/Time: 10/29/2022 3:47 AMPerformed by: Murray Elise NPAuthorized by: Murray Elise NP Consent: The procedure was performed in an emergent situation.Relevant documents: relevant documents present and verifiedTest results: test results available and properly labeledSite marked: the operative site was markedImaging studies: imaging studies availableRequired items: required blood products, implants, devices, and special equipment availablePatient identity confirmed: arm bandTime out: Immediately prior to procedure a "time out" was called to verify the correct patient, procedure, equipment, residential support specialist and site/side marked as required.Indications:vascular accessAnesthesia: local infiltration Anesthesia:Local Anesthetic: lidocaine 2% without epinephrinePreparation: skin prepped with 2% chlorhexidineLocation details: right internal jugularPatientposition: flatCatheter type: triple lumenPre-procedure: landmarks identifiedUltrasound guidance: yesSterile ultrasound techniques: sterile gel and sterile probe covers were usedNumber of attempts: 1Successful placement: yesPost-procedure: line sutured and dressing appliedAssessment: blood return through all ports, free fluid flow, placement verified by x-ray and no pneumothorax on x-rayPatient tolerance: patient tolerated the procedure well with no immediate complications Immediate Post- Procedure Note Assistants to the procedure: NonePre-procedure diagnosis: ICHPost-procedure diagnosis: ICHProcedures Performed: Central LineSpecimens removed: NoneEstimated blood loss (mL): NoneComplications: NoneType of anesthesia: NoneGrafts or Implants: [facility] CenterInsert Arterial [id number] 03:46:45Murray Elise NP 10/29/2022 3:47 AMInsert Arterial Line Date/Time: 10/29/2022 3:46 AMPerformed by: Murray Elise NPAuthorized by: Murray Elise NP Consent: The procedure was performed in an emergent situation.Relevant documents: relevant documents present and verifiedTest results: test results available and properly labeledSite marked: the operative site was markedImaging studies: imaging studies availablePatient identity confirmed: arm bandTime out: Immediately prior to procedure a "time out" was called to verify the correct patient, procedure, equipment, residential support specialist and site/side marked as required.Preparation: Patient was prepped and draped in the usual sterile fashion.Indications: multiple ABGs and hemodynamic monitoringLocation: right radial Anesthesia:Local Anesthetic: lidocaine 2% without epinephrineAllen's test normal: yesNeedle gauge: 18Seldinger technique: Seldinger technique usedNumber of attempts: 1Post-procedure: line sutured and dressing appliedPost-procedure CMS: normalPatienttolerance: patient tolerated the procedure well with no immediate complicationsGood Samaritan Hospital Insert Arterial [id number] 03:46:45Murray Elise NP 10/29/2022 3:47 AMInsert Arterial Line Date/Time: 10/29/2022 3:46 AMPerformed by: Murray Elise NPAuthorized by: Murray Elise NP Consent: The procedure was performed in an emergent situation.Relevant documents: relevant documents present and verifiedTest results: test results available and properly labeledSite marked: the operative site was markedImaging studies: imaging studies availablePatient identity confirmed: arm bandTime out: Immediately prior to procedure a "time out" was called to verify the correct patient, procedure, equipment, residential support specialist and site/side marked as required.Preparation: Patient was prepped and draped in the usual sterile fashion.Indications: multiple ABGs and hemodynamic monitoringLocation: right radial Anesthesia:Local Anesthetic: lidocaine 2% without epinephrineAllen's test normal: yesNeedle gauge: 18Seldinger technique: Seldinger technique usedNumber of attempts: 1Post-procedure: line sutured and dressing appliedPost-procedure CMS: normalPatienttolerance: patient tolerated the procedure well with no immediate complicationsGood [facility] OFM-[id number] 00:00:00Ordered by an unspecified provider.[facility] HospitalEKG-[id number] 00:00:00Ordered by an unspecified provider. [facility] HospitalFungus culture + [id number] 08:28:10 Test Item Value Reference Range Interpretation Comments Result (test code = No fungus isolated in 6463-4) 28 days Fungus Smear (test No fungal elements seen code = 1406) [facility] HospitalFungus culture + [id number] 08:28:10 Test Item Value Reference Range Interpretation Comments Result (test code = No fungus isolated in 6463-4) 28 days Fungus Smear (test No fungal elements seen code = 1406) [facility] HospitalFungus culture + [id number] 08:28:10 Test Item Value Reference Range Interpretation Comments Result (test code = No fungus isolated in 6463-4) 28 days Fungus Smear (test No fungal elements seen code = 1406) [facility] HospitalFUNGUS CULTURE + [id number] 08:28:10 Test Item Value Reference Range Interpretation Comments CULTURE (BEAKER) (test No fungus isolated in code = 1095) 28 days FUNGUS SMEAR (BEAKER) No fungal elements seen (test code = 1406) [id number] 05:54:28 Test Item Value Reference Range Interpretation Comments MAGNESIUM (BEAKER) (test code = 1.9 mg/dL 1.6-2.6 627) Sculpture Conservator ID - RPBSGJDPSUZGQWG1239-12-71 05:54:28 Test Item Value Reference Range Interpretation Comments PHOSPHORUS (BEAKER) (test code = 5.2 mg/dL 2.3-4.7 H 604) Sculpture Conservator ID - MARCOBASIC METABOLIC [id number] 05:54:27 Test Item Value Reference Range Interpretation [...] not appl icable for dialysis patien ts Sculpture Conservator ID - MARCOCBC W/PLT COUNT & AUTO [id number] 05:42:51 Test Item Value Reference Range Interpretation [...] PERCENT (BEAKER) (test code = 2801) CALCIUM, [id number] 05:36:04 Test Item Value Reference Range Interpretation Comments CALCIUM IONIZED (BEAKER) (test 1.12 mmol/L 1.12-1.27 code = 698) PH, BLOOD (BEAKER) (test code = 7.42 1810) Anaerobic [id number] 02:03:45 Test Item Value Reference Range Interpretation Comments Result (test code = No anaerobes isolated 6463-4) [facility] [id number] 02:03:45 Test Item Value Reference Range Interpretation Comments Result (test code = No anaerobes isolated 6463-4) [facility] [id number] 02:03:45 Test Item Value Reference Range Interpretation Comments Result (test code = No anaerobes isolated 6463-4) [facility] [id number] 02:03:45 Test Item Value Reference Range Interpretation Comments CULTURE (BEAKER) (test No anaerobes isolated code = 1095) STD Panel - CT/GC [id number] 17:37:44 Test Item Value Reference Interpretation Comments Range C. trachomatis NOT DETECTED RNA, TMA (test code = 8341261) N. gonorrhoeae NOT DETECTED REFERENCE RA NGE: NOT RNA, TMA (test DETECTED Meth odology: code = 6854260) Transcriptio n Mediated Amplification ( TMA)to detect RNA. The analytical perf ormance characteristics of thisassay, when used to test SurePat h(TM) specimens haveb een determined by [facility]. Th e modificationsha ve not been cleared or approved by the FDA. This assayhas b een validated pursu ant to the CLIA regula tions andis used for clinical purpos es. For additional information, pl ease refer tohttps://educa [employer]. [employer]/faq /NXP642(This li nk is being provided for informational/e ducatio nal purposes on ly.) SUE (test code = Performing Lab SUE) *[facility] [address] [address] Sylvie Gresham MD, PhD [facility] Panel - CT/GC [id number] 17:37:44 Test Item Value Reference Interpretation Comments Range C. trachomatis NOT DETECTED RNA, TMA (test code = 2835951) N. gonorrhoeae NOT DETECTED REFERENCE RA NGE: NOT RNA, TMA (test DETECTED Meth odology: code = 1310620) Transcriptio n Mediated Amplification ( TMA)to detect RNA. The analytical perf ormance characteristics of thisassay, when used to test SurePat h(TM) specimens haveb een determined by [facility]. Th e modificationsha ve not been cleared or approved by the FDA. This assayhas b een validated pursu ant to the CLIA regula tions andis used for clinical purpos es. For additional information, pl ease refer tohttps://educa [employer]. [employer]/faq /JPL092(This li nk is being provided for informational/e ducatio nal purposes on ly.) SUE (test code = Performing Lab SUE) *[facility] [address] [address] Sylvie Gresham MD, PhD [facility] Panel - CT/GC [id number] 17:37:44 Test Item Value Reference Interpretation Comments Range C. trachomatis NOT DETECTED RNA, TMA (test code = 9229598) N. gonorrhoeae NOT DETECTED REFERENCE RA NGE: NOT RNA, TMA (test DETECTED Meth odology: code = 9584508) Transcriptio n Mediated Amplification ( TMA)to detect RNA. The analytical perf ormance characteristics of thisassay, when used to test SurePat h(TM) specimens haveb een determined by [facility]. Th e modificationsha ve not been cleared or approved by the FDA. This assayhas b een validated pursu ant to the CLIA regula tions andis used for clinical purpos es. For additional information, pl ease refer tohttps://educa tion.[employer]. [employer]/faq /PHY607(This li nk is being provided for informational/e ducatio nal purposes on ly.) SUE (test code = Performing Lab SUE) *[facility] [address] [address] Sylvie Gresham MD, PhD [facility] HospitalBASI METABOLIC [id number] 16:40:09 Test Item Value Reference Range Interpretation [...] not appl icable for dialysis patien ts Sculpture Conservator ID - BSOsmolality, [id number] 12:43:16 Test Item Value Reference Range Interpretation Comments Osmolality, Ur (test code 245 See_Comment [ Automated message] = 2695-5) The system [employer] generated this result transmitted ref erence range: 50-1,200 mOsm/kg mOsm/kg . The reference range was not used to int erpret this result as normal/abnormal . Lab Interpretation (test Normal code = 77913-4) [facility] HospitalOSMOLALITY, [id number] 12:43:16 Test Item Value Reference Range Interpretation Comments OSMOLALITY URINE 245 mOsm/kg See_Comment [Automated message] (BEAKER) (test code = The sy stem which 614) generated this result transmitted ref erence range: 50-1,200 mOsm/kg. The reference range was not used to int erpret this result as normal/abnormal . Sodium, random [id number] 11:48:27 Test Item Value Reference Range Interpretation Comments Sodium Urine (test 82 meq/L code = 2955-3) SUE (test code = Reference Range: No SUE) NormalsOperator ID - ADMIN [facility] HospitalUrea Nitrogen, random [id number] 11:48:27 Test Item Value Reference Range Interpretation Comments Urea Nitrogen, Ur 121 mg/dL (test code = 3095-7) SUE (test code = Reference Range: No SUE) NormalsOperator ID - ADMIN [facility] CenterOD[facility], RANDOM [id number] 11:48:27 Test Item Value Reference Range Interpretation Comments SODIUM URINE (BEAKER) (test code = 82 meq/L 243) Reference Range: No NormalsOperator ID - ADMINUREA NITROGEN, RANDOM URINE 2022-08-10 11:48:27 Test Item Value Reference Range Interpretation Comments UREA NITROGEN URINE (BEAKER) (test 121 mg/dL code = 538) Reference Range: No NormalsOperator ID - ADMINCreatinine, random [id number] 11:48:26 Test Item Value Reference Range Interpretation Comments Creatinine, Ur 20.9 mg/dL (test code = 2161-8) SUE (test code = Reference Range: No SUE) NormalsOperator ID - ADMIN [facility] HospitalCREATININE, RANDOM [id number] 11:48:26 Test Item Value Reference Range Interpretation Comments CREATININE URINE (BEAKER) (test 20.9 mg/dL code = 375) Reference Range: No NormalsOperator ID - ADMINWound culture + gram stain 2022-08-10 11:24:49 Test Item Value Reference Range Interpretation Comments Result (test code = No growth 6463-4) Gram Stain Result <1+ gram positive cocci (test code = 1123) in pairs [facility] culture + gram [id number] 11:24:49 Test Item Value Reference Range Interpretation Comments Result (test code = No growth 6463-4) Gram Stain Result <1+ gram positive cocci (test code = 1123) in pairs [facility] HospitalW[facility] culture + gram [id number] 11:24:49 Test Item Value Reference Range Interpretation Comments Result (test code = No growth 6463-4) Gram Stain Result <1+ gram positive cocci (test code = 1123) in pairs [facility] HospitalW[facility] + GRAM [id number] 11:24:49 Test Item Value Reference Range Interpretation Comments CULTURE (BEAKER) (test No growth code = 1095) GRAM STAIN RESULT 4+ WBCs (BEAKER) (test code = 1123) GRAM STAIN RESULT <1+ gram positive cocci (BEAKER) (test code = in pairs 50279) T4, [id number] 11:12:44 Test Item Value Reference Range Interpretation Comments FREE T4 (BEAKER) (test code = 655) 1.25 ng/dL 0.70-1.48 Sculpture Conservator ID - AAHAMIDOSMOLALITY, [id number] 11:11:51 Test Item Value Reference Range Interpretation Comments OSMOLALITY, SERUM (BEAKER) (test 271 mOsm/kg 275-295 L code = 615) TSH/FREE T4 IF [id number] 10:36:27 Test Item Value Reference Range Interpretation Comments THYROID STIMULATING HORMONE 10.385 uIU/mL 0.350-4.940 H (BEAKER) (test code = 772) Sculpture Conservator ID - YZPIXOFSPQVLFPI2938-33-04 10:30:32 Test Item Value Reference Range Interpretation Comments CORTISOL, TOTAL (BEAKER) (test 11.9 ug/dL 3.7-19.4 code = 2755) Sculpture Conservator ID - AAJDCT, DRAINAGE, SOFT TISSUE FLUID [id number] 09:56:00Reason for exam:->tubo-ovarian abscess [facility] GE[facility] L : 1975 Sex: FFINAL REPORT CT guided [...] Whitesideort Verified Date/Time: 08/10/2022 09:56:28 Reading Location: [address] Neuro Reading Room RADIOLOGIC GUIDANCE & INTERP/[id number] 09:56:00FINAL REPORT CT guided fluid aspiration Clinical History: Left lower quadrant fluid collection. Local anesthesia: Lidocaine. Conscious sedation: (Given after informed consent is obtained.) 2 mg of Versed and 100 mcg of fentanyl intravenously for total of 30 minutes. Technique: After informed consent is obtained, which included the risks of bleeding, infection, injury to adjacent s tructures/bowel, adverse medication reaction, the patient's abdomen is scanned. The fluid collectionis localized. After the skin is prepped and draped in the usual sterile manner, and local anesthesiais achieved, a one-step needle is advanced into [...] Whiteside Verified Date/Time: 08/10/2022 09:56:28 Reading Location: [address] Neuro Reading Room [facility]/[id number] 09:56:00FINAL REPORT CT guided fluid aspiration Clinical History: [...] the patient's abdomen is scanned. The fluid collectionis localized. After the skin is prepped and draped in the usual sterile manner, and local anesthesiais achieved, a one-step needle is advanced into [...] MDReport Verified Date/Time: 08/10/2022 09:56:28 Reading Location: [address] Neuro Reading Room [facility] CenterTreadmill tolerance(Non-Nuclear Treadmill)2022-08-10 08:12:31 Protocol Name Lexiscan Time In Exercise Phase 00:01:00 Max. Systolic BP 131 mmHgMax Diastolic BP 78 mmHgMax Heart Rate 97 BPMMax Predicted Heart Rate 174 BPMReason For Termination Predetermined end point Reason for Test Cardiac Screening, CAD high risk Target HR Formula (220 - Age)*100% Arrhythmias Pre mature Ventricular Contractions atrial premature beatsResting ECG Normal sinus rhythm left ventricular hypertrophyST Changes No Significant Changes Overall Impression Indeterminate due to pharmacological stress Chest Pain none HR Response To Exercise BP Response To Exercise Lipitor, Nifedipine Confirmed by fellow Gamaliel Joshua ([id number]) on 08/01/2022 1:30:42 PMConfirmed by Kelton Stapleton ([id number]) on 38:12:24 [facility] CenterTreadmill tolerance(Non- Nuclear Treadmill)2022-08-10 08:12:31Protocol Name Lexiscan Time In Exercise Phase 00:01:00 Max. Systolic BP 131 mmHgMax Diastolic BP 78 mmHgMax Heart Rate 97 BPMMax Predicted Heart Rate 174 BPMReason For Termination Predetermined end point Reason for Test Cardiac Screening, CAD high risk Target HR Formula (220 - Age)*100% Arrhythmias Premature Ventricular Contractions atrial premature beatsResting ECG Normal sinus rhythm left ventricular hypertrophyST Changes No Significant Changes Overall Impression Indeterminate due to pharmacological stress Chest Pain none HR Response To Exercise BP Response To Exercise Lipitor, Nifedipine Confirmed by fellow Gamaliel Joshua ([id number]) on 08/01/2022 1:30:42 PMConfirmed by Kelton Stapleton ([id number]) on 38:12:24 [facility] CenterBASIC METABOLIC [id number] 06:16:41 Test Item Value Reference Range Interpretation [...] not appl icable for dialysis patien ts Sculpture Conservator ID - ADMINSpecimen slightly [id number] 06:16:41 Test Item Value Reference Range Interpretation Comments MAGNESIUM (BEAKER) 1.9 mg/dL 1.6-2.6 Specimen slightly (test code = 627) hemolyzed Sculpture Conservator ID - ADMINCBC (HEMOGRAM ONLY)2022-08-10 05:54:45 Test [...] 0-0 CELLS (BEAKER) (test code = 413) [id number] 04:19:50 Test Item Value Reference Range Interpretation Comments MAGNESIUM (BEAKER) (test code = 1.3 mg/dL 1.6-2.6 L 627) Sculpture Conservator ID - MMBASIC METABOLIC [id number] 04:19:50 Test Item Value Reference Range Interpretation [...] not appl icable for dialysis patien ts Sculpture Conservator ID - MMSpecimen slightly ictericCBC (HEMOGRAM ONLY)2022-08-09 [...] (BEAKER) (test code = 413) BASIC METABOLIC [id number] 06:27:34 Test Item Value Reference Range Interpretation [...] not appl icable for dialysis patien ts Sculpture Conservator ID - DAMIÁN WSpecimen slightly ictericB-TYPE NATRIURETIC FACTOR (BNP) 2022-08-08 05:56:50 Test Item Value Reference Range Interpretation Comments B-TYPE NATRIURETIC PEPTIDE (BEAKER) 202 pg/mL 0-100 H (test code = 700) Sculpture Conservator ID - BSCBC (HEMOGRAM ONLY)2022-08-08 05:36:13 Test [...] (BEAKER) (test code = 413) BASIC METABOLIC [id number] 05:39:11 Test Item Value Reference Range Interpretation [...] not appl icable for dialysis patien ts Sculpture Conservator ID - ADMINSpecimen slightly ictericCBC (HEMOGRAM ONLY)2022-08-07 [...] 0-0 (BEAKER) (test code = 413) CT, [id number] 07:32:00Unlisted Reason for Exam - Click Yes and Enter Reason Below->NoProtocol Please Specify:->Standard ProtocolWill this procedure require oral contrast?->No [facility] : 1975 Sex: FFINAL REPORT CT abdomen and pelvis with contrast History: Tubo-ovarian abscess Comparison: none Technique: serial axial imaging was performed following up to 100cc of non ionic iodinated intravenous contrast as per departmental protocol. Multiplanar images are reconstructed and reviewed when indicated. This CT examination is performed using one or more of the following dose reductiontechniques: Automated exposure control, adjustment of the mA [...] in size from 07/30/2022. Signed: Kam Vigil MDRnorwalk hospital Verified Date/Time: 08/06/2022 07:32:46 Reading Locatio n: [facility] Diagnostic Imaging Reading Room - [place] [id number] Electronically signed by: Marti GUTIERREZ 08/06/2022 07:32 [facility] CONTRAST Standard [id number] 07:32:00FINAL REPORT CT abdomen and pelvis with contrast [...] iterative reconstruction technique. Findings:Unremarkable appearance of pancreas andspleen. Unremarkable appearance of the liver. The patient is status post cholecystectomy. Unremarkable appearance of the adrenal glands. Moderate cortical scarring/atrophy of the right kidney. There isno evidence of hydronephrosis. There is no concerning [...] abdominal aortic aneurysm. No aggressive osseous lesion. Im pression:Findings remain suspicious for left adnexal tubo-ovarian abscess, with mild increase in size from 07/30/2022. Signed: Kam Vigil MDReport Verified Date/Time: 08/06/2022 07:32:46 Reading Location: [facility] Diagnostic Imaging Reading Room [place] [address] [facility]CT [facility]AST Standard [id number] 07:32:00FINAL REPORT CT abdomen and pelvis with contrast [...] iterative reconstruction technique. Findings:Unremarkable appearance of pancreas andspleen. Unremarkable appearance of the liver. The patient is status post cholecystectomy. Unremarkable appearance of the adrenal glands. Moderate cortical scarring/atrophy of the right kidney. There isno evidence of hydronephrosis. There is no concerning [...] abdominal aortic aneurysm. No aggressive osseous lesion. Im pression:Findings remain suspicious for left adnexal tubo-ovarian abscess, with mild increase in size from 07/30/2022. Signed: Kam Vigil MDReport Verified Date/Time: 08/06/2022 07:32:46 Reading Location: [facility] Diagnostic Imaging Reading Room - [place] [address] [facility] CenterPregnancy Screen, [id number] 21:59:05 Test Item Value Reference Range Interpretation Comments Preg Test, Ur (test code = 2112-1) Negative Negative Lab Interpretation (test code = Normal 75520-5) [facility] HospitalPREGNANCY SCREEN, [id number] 21:59:05 Test Item Value Reference Range Interpretation [...] CONCENTRATION Adequate (CELLAVISION)(BEAKER) (test code = 3438) Sculpture Conservator ID - Salena comments: Slide comments:BASIC METABOLIC [...] not appl icable for dialysis patien ts Sculpture Conservator ID - ADMINSpecimen slightly ictericPROTHROMBIN TIME/[id number] 21:25:45 Test Item Value Reference Range Interpretation [...] mechanical heart valves.CBC W/PLT COUNT & AUTO [id number] 21:20:49 Test Item Value Reference Range Interpretation [...] (BEAKER) (test code = 413) Transthoracic echo [id number] 16:18:18Ejection FractionSLEH ECHO HEARTLAB [facility] HospitalTransthoracic echo [id number] 16:18:18Ejection FractionSLEH ECHO [facility]LAB [facility]Transthoracic echo [id number] 16:18:18Ejection FractionSLE ECHO [facility]angeBASIC METABOLIC PANEL 2022-08-03 05:26:56 Test Item Value [...] not appl icable for dialysis patien ts Sculpture Conservator ID - MMSpecimen slightly ictericCBC (HEMOGRAM ONLY)2022-08-03 [...] CONCENTRATION Decreased (CELLAVISION)(BEAKER) (test code = 3438) Sculpture Conservator ID - Salena comments: Slide comments:CBC W/PLT COUNT & AUTO [id number] 14:52:12 Test Item Value Reference Range Interpretation [...] (BEAKER) (test code = 413) BASIC METABOLIC [id number] 13:40:34 Test Item Value Reference Range Interpretation [...] not appl icable for dialysis patien ts Sculpture Conservator ID - ADMINSpecimen moderately ictericMYOCARD IMAGING, MULTI, PHARM, [id number] 15:12:00Unlisted Reason for Exam - Click Yes and Enter Reason Below->[facility] : 1975 Sex: FFINAL REPORT PROCEDURE: MYOCARDIAL PERFUSION SPECT IMAGING (Rest/Stress)CPT CODE: 48762 INDICATION: Cardiac screening, high CAD risk CARDIOVASCULAR [...] prior study for comparison. Signed: Marilyn Cerna [facility] Verified Date/Time: 08/01/2022 15:12:23 NM myocardial perfusion SPECT, pharm(Lexiscan)2022-08-01 15:12:00FINAL REPORT PROCEDURE: MYOCARDIAL PERFUSION SPECT IMAGING (Rest/Stress)CPT CODE: 91017 INDICATION: Cardiac screening, high CAD risk CARDIOVASCULAR PROFILE:CAD History: History of MISymptoms: NoneRisk Factors: Hypertension, tobacco useBMI: 23.8Medications: Atorvastatin, nifedipineSTRESS PROTOCOL:Pharmacologic stress was achieved with a 10-second [...] prior study for comparison. Signed: Marilyn Cerna MDReport Verified Date/Time: 08/01/2022 15:12:23 [facility] myocardial perfusion SPECT, pharm(Lexiscan) 2022-08-01 15:12:00FINAL REPORT PROCEDURE: MYOCARDIAL PERFUSION SPECT IMAGING (Rest/Stress)CPT CODE: 41967 INDICATION: Cardiac screening, high CAD risk CARDIOVASCULAR PROFILE:CAD History: History of M ISymptoms: NoneRisk Factors: Hypertension, tobacco useBMI: 23.8Medications: Atorvastatin, nifedipineSTRESS PROTOCOL:Pharmacologic stress was achieved with a 10-second [...] prior study for comparison. Signed: Marilyn Cerna MDReport Verified Date/Time: 08/01/2022 15:12:23 [facility]HEMO[facility] [id number] 13:52:52 Test Item Value Reference Range Interpretation [...] 5.7- 6.4% indicates increased risk for diabetes (prediabetes)."Sculpture Conservator ID - ADM (CELLAVISION MANUAL DIFF)2022-08-01 08:26:35 [...] CONCENTRATION Decreased (CELLAVISION)(BEAKER) (test code = 3438) Sculpture Conservator ID - Remy Nagy comments: Slide comments:CBC W/PLT COUNT & AUTO [id number] 08:26:34 Test Item Value Reference Range Interpretation [...] (BEAKER) (test code = 413) HCG, QUANTITATIVE, [id number] 05:48:18 Test Item Value Reference Range Interpretation Comments GONADOTROPIN, CHORIONIC (HCG) QUANT < mIU/mL 0-10 (BEAKER) (test code = 649) Non- Females: <10 mIU/mL Females: Gestation Age Reference Range(mIU/mL) 0.2-1 Week 5-50 1-2 Weeks 50-500 2-3 Weeks 100-5,000 3-4 Weeks 500-10,000 4-5 Weeks 1,000-50,000 5-6 Weeks 10,000-100,000 6-8 Weeks 15,000- 200,000 2-3 Months 10,000-100,000 Sculpture Conservator ID - DBBASIC METABOLIC PANEL 2022-08-01 05:41:39 [...] not appl icable for dialysis patien ts Sculpture Conservator ID Gisele STEEL WSpecimen moderately [id number] 05:41:38 Test Item Value Reference Range Interpretation Comments MAGNESIUM (BEAKER) (test code = 1.7 mg/dL 1.6-2.6 627) Sculpture Conservator ID Gisele STEEL [id number] 05:41:38 Test Item Value Reference Range Interpretation Comments PHOSPHORUS (BEAKER) (test code = 3.0 mg/dL 2.3-4.7 604) Sculpture Conservator [employer] WPT/[id number] 05:39:59 Test Item Value Reference Range Interpretation [...] 2.5-3.5 for patients with mechanical heart valves.LIPID [id number] 22:24:08 Test Item Value Reference Range Interpretation [...] Borderline 130-159 High 160-189 Very High >=190 Sculpture Conservator ID - [id number] ID - [id number] ID - VPSGHO680Kipfonmz slightly icteric U/S, ENDOVAGINAL (EV)2022-07-31 14:38:00Reason for exam:->concern for [facility] 1975 Sex: FFINAL [...] Duran MDReport Verified Date/Time: 07/31/2022 14:38:44 U/S, [id number] 14:38:00Reason for exam:->concern for [facility] : 1975 Sex: FFINAL [...] MDReport Verified Date/Time: 07/31/2022 14:38:44 U/S, DUPLEX, [id number] 14:38:00 [facility] : 1975 Sex: FFINAL [...] follow-up imaging with ultrasound. Signed: Shauna Duran Verified Date/Time: 07/31/2022 14:38:44 US [id number] 14:38:00FINAL REPORT TECHNIQUE: Transabdominal and transvaginal grayscale ultrasound ofthe pelvis with color Doppler and spectral Doppler [...] the left ovary measures 5.8 x 4.2 x 5 cm. Arterial and venous spectral waveforms detected [...] CT. If the patient is improving clinically, considercontinued follow-up imaging with ultrasound. Signed: Shauna Duran Verified Date/Time: 07/31/2022 14:38:44 [facility] sugaw[facility]g8006-[facility]-54 14:38:00FINAL REPORT TECHNIQUE: Transabdominal and transvaginal grayscale ultrasound ofthe pelvis with color Doppler and spectral Doppler [...] the left ovary measures 5.8 x 4.2 x 5 cm. Arterial and venous spectral waveforms detected [...] CT. If the patient is improving clinically, considercontinued follow-up imaging with ultrasound. Signed: Shauna Duran [facility] Verified Date/Time: 07/31/2022 14:38:44 [facility] Szdmjjuadcz7898-38-63 14:38:00FINAL REPORT TECHNIQUE: Transabdominal and transvaginal grayscale ultrasound ofthe pelvis with color Doppler and spectral Doppler [...] the left ovary measures 5.8 x 4.2 x 5 cm. Arterial and venous spectral waveforms detected [...] CT. If the patient is improving clinically, considercontinued follow-up imaging with ultrasound. Signed: Shauna Duran MDReport Verified Date/Time: 07/31/2022 14:38:44 [facility] mqofsl9789-81-54 14:38:00FINAL REPORT TECHNIQUE: Transabdominal and transvaginal grayscale ultrasound ofthe pelvis with color Doppler and spectral Doppler [...] the left ovary measures 5.8 x 4.2 x 5 cm. Arterial and venous spectral waveforms detected [...] CT. If the patient is improving clinically, considercontinued follow-up imaging with ultrasound. Signed: Kelly Shaunacandice Sanchez Verified Date/Time: 07/31/2022 14:38:44 [facility] xqhtkva8509-13-91 14:38:00FINAL REPORT TECHNIQUE: Transabdominal and transvaginal grayscale ultrasound ofthe pelvis with color Doppler and spectral Doppler [...] the left ovary measures 5.8 x 4.2 x 5 cm. Arterial and venous spectral waveforms detected [...] CT. If the patient is improving clinically, considercontinued follow-up imaging with ultrasound. Signed: Shauna Duran MDRharshort Verified Date/Time: 07/31/2022 14:38:44 [facility] Jxzhlmmvkzt4399-69-87 14:38:00FINAL REPORT TECHNIQUE: Transabdominal and transvaginal grayscale ultrasound ofthe pelvis with color Doppler and spectral Doppler [...] the left ovary measures 5.8 x 4.2 x 5 cm. Arterial and venous spectral waveforms detected [...] CT. If the patient is improving clinically, considercontinued follow-up imaging with ultrasound. Signed: Shauna Duran MDReport Verified Date/Time: 07/31/2022 14:38:44 [facility] W/PLT COUNT & AUTO [id number] 03:57:39 Test Item Value Reference Range Interpretation [...] H PERCENT (BEAKER) (test code = 2801) [id number] 03:56:52 Test Item Value Reference Range Interpretation Comments MAGNESIUM (BEAKER) (test code = 1.5 mg/dL 1.5-3.0 627) Sculpture Conservator ID - [id number] ID - [id number] ID - [id number] ID - [id number] BASIC METABOLIC [id number] 03:55:31 Test Item Value Reference Range Interpretation [...] not appl icable for dialysis patien ts Sculpture Conservator ID - [id number] ID - [id number] ID - [id number] ID - [id number] ID - [id number] ID - [id number] ID - [id number] ID - [id number] ID - [id number] slightly bbsebcjEVJKYZTLCQ4934-34-53 03:54:07 Test Item Value Reference Range Interpretation Comments PHOSPHORUS (BEAKER) (test code = 4.0 mg/dL 2.5-4.5 604) Sculpture Conservator ID - [id number] 18:37:08 Test Item Value Reference Range Interpretation Comments MAGNESIUM (BEAKER) (test code = 1.6 mg/dL 1.5-3.0 627) Sculpture Conservator ID - [id number] ID - [id number] ID - [id number] ID - [id number], CHEST, 1 VIEW, NON [id number] 16:51:00Reason for exam:->SOB, wheezingShould this be performed at the bedside?->Yes [facility] : 1975 Sex: FFINAL [...] Carreraeport Verified Date/Time: 07/30/2022 16:51:52 Reading Location: [facility] Radiology Reading Room BAPSYCHIATRIC METABOLIC PANEL 2022-07-30 16:02:18 Test Item Value [...] not appl icable for dialysis patien ts Sculpture Conservator ID - [id number] ID - [id number] ID - [id number] ID - [id number] ID - [id number] ID - [id number] ID - [id number] ID - [id number] ID - [id number] ID - [id number] ID - [id number] ID - [id number] TIME/INR 2022-07-30 16:00:01 Test Item Value Reference [...] mechanical heart valves.CBC W/PLT COUNT & AUTO [id number] 15:52:31 Test Item Value Reference Range Interpretation [...] PERCENT (BEAKER) (test code = 2801) TISSUE [id number] 12:09:00Surgical Pathology Report Case: [id number] Authorizing Provider: Trudy James MD Collected: 02/17/2019 1126 Ordering Location: [address] Received: 02/17/2019 1147 Service Pathologist: Angela Beach MD Specimen: Gallbladder A. GALLBLADDER, CHOLECYSTECTOMY: - CHRONIC CHOLECYSTITIS WITH CHOLELITHIASIS. Signing Pathologist Direct Phone Line: [phone] signed by Angela Beach MD on 02/19/2019 at 12:09 [id number] renal mass Gallbladder Received in formalin labeled with the pa harrison's name, accession number and "gallbladder" is a [...] trabeculated. The wall measures 0.2 cm thick. Surgical Supervisor sections are submitted in A1-A2, with the inked proximal margin is A1. PA/ew Performed.[facility], Department of Pathology, [address] [place] [address], [facility], Department of Pathology,[address] [place] [address], [facility]vemntAvalon [facility], Departmentof Pathology, [address] [place] [address], AKD W/PLT COUNT & AUTO [id number] 07:03:00 Test Item Value Reference Range Interpretation [...] (BEAKER) (test code = 2801) BASIC METABOLIC [id number] 06:57:00 Test Item Value Reference Range Interpretation [...] APPLICABLE FOR DIALYSIS PATIEN TS. HEPATIC FUNCTION [id number] 06:57:00 Test Item Value Reference Range Interpretation [...] (test code = 347) hemolyzed HEPATIC FUNCTION [id number] 06:57:00 Test Item Value Reference Range Interpretation [...] 72 U/L 6-55 H 347) BASIC METABOLIC [id number] 06:57:00 Test Item Value Reference Range Interpretation [...] PATIEN TS. CBC W/PLT COUNT & AUTO [id number] 06:28:00 Test Item Value Reference Range Interpretation [...] PERCENT (BEAKER) (test code = 2801) SCREEN, [id number] 07:28:00 Test Item Value Reference Range Interpretation Comments TEST URINE (BEAKER) (test Negative code = 583) [id number] 07:28:00 Test Item Value Reference Range Interpretation Comments MAGNESIUM (BEAKER) 2.0 mg/dL 1.6-2.6 Specimen moderately (test code = 627) hemolyzed [id number] 07:28:00 Test Item Value Reference Range Interpretation Comments PHOSPHORUS (BEAKER) 4.0 mg/dL 2.3-4.7 Specimen moderately (test code = 604) hemolyzed BASIC METABOLIC [id number] 07:28:00 Test Item Value Reference Range Interpretation [...] APPLICABLE FOR DIALYSIS PATIEN TS. HEPATIC FUNCTION [id number] 07:28:00 Test Item Value Reference Range Interpretation [...] Specimen moderately (test code = 347) hemolyzed [id number] 07:28:00 Test Item Value Reference Range Interpretation Comments LIPASE (BEAKER) (test code = 749) 31 U/L 8-78 CBC W/PLT COUNT & AUTO [id number] 07:10:00 Test Item Value Reference Range Interpretation [...] (BEAKER) (test code = 2801) U/S, ABDOMINAL, [id number] 23:50:00Abdomen limited area? Add comment if clarification [...] Date/Time: 02/15/2019 23:50:53 URINALYSIS W/ REFLEX URINE [id number] 22:43:00 Test Item Value Reference Range Interpretation [...] SOURCE(BEAKER) (test code = 2795) HEPATIC FUNCTION [id number] 17:03:00 Test Item Value Reference Range Interpretation [...] Specimen slightly (test code = 347) hemolyzed [id number] 16:00:00 Test Item Value Reference Range Interpretation Comments MAGNESIUM (BEAKER) 2.1 mg/dL 1.6-2.6 Specimen slightly (test code = 627) hemolyzed BASIC METABOLIC [id number] 16:00:00 Test Item Value Reference Range Interpretation [...] hemolyz ed (test code = 364) PROTHROMBIN TIME/[id number] 15:31:00 Test Item Value Reference Range Interpretation [...] is 2.5-3.5 for patients wiht mechanical heart valves.[id number] 15:31:00 Test Item Value Reference Range Interpretation Comments PARTIAL THROMBOPLASTIN TIME 31.4 seconds 22.5-36.0 (BEAKER) (test code = 760) CBC W/PLT COUNT & AUTO [id number] 15:14:00 Test Item Value Reference Range Interpretation [...] Consult Notes Date/Time Note Provider Source 2022-11-28 5096-90-39J32:23:09Associated Patrick Wallace OT [facility] 10:23:09 Order(s): CONSULT ADULT OCCUPATIONAL THERAPY OT GENERAL EVALUATIONConsult received via Sidelines, EMR reviewed and evaluation completed 11/28/22. Patient [...] and verbalizes understanding of teaching provided.Patrick Wallace, OTRUniMemorial Hermann [facility]y Hospital of Rehabilitation ServicesTotal Timed Treatment Codes: [...] to enable patient to complete evaluation component. 12316-3Ldteaya zarxPN1589-62-82V35:15:28Consult noteTXT1.2.840.871337.1.13.104.2.7.2 .380168|[id number] for patient gnne59044-9Htjhucw vlgmIG917209257Seflfc C Lawas [address] RsuaW[id number] IEUCEMAOBUBLPAXNPSLITT8951-19-20Y31: 15:281.2.840.827203.1.72.3.15|1.2.84 0.541122.1.13.104.2.7.2.727879_18983 64646 2022-11-28 0362-33-54H95:45:00Associated Savanna Juarez [facility] 09:45:00 Order(s): CONSULT ADULT PHYSICAL THERAPY Patient [...] a SS house, and sisterDME: Wheel Chair i3Tybfq level of Mobility: requires assistance with transfers, [...] denies pain before and after sessionCOMMUNICATIONPrimary Language: Chilean Able to Verbalize needs: Yes Vision:good; no [...] Time in Minutes: 33 minSavanna Juarez PT, DPTUnVal Verde Regional Medical CenterRehabilitation Services A physical therapy [...] clinical presentation with unstable and unpredictable characteristics 81877-3Qrhirqd bpkrLE2746-54-59Y28:53:18Consult noteTXT1.2.840.590133.1.13.104.2.7.2 .587587|[id number] for patient hujq06295-1Shedtbh mebcLD795980911Pyqhev Pallera [address] RpgbEoswopdfkYizzqcbkvRYKG8385984108 CZHKDVGDRVLNZJOKNQNBSQ4304-02-78F25: 53:181.2.840.805531.1.72.3.15|1.2.84 0.305098.1.13.104.2.7.2.727879_18983 08848 2022-11-25 1721-81-91D94:49:18Associated PN-NEUROLOGY [facility] 18:49:18 Order(s): CONSULT NEUROLOGY STROKE SERVICE [...] (mIU/L) Date Value 11/24/2022 2.03 Recent Labs TROPNI 0.911* 0.579* RADIOLOGY CT HEAD WO [...] with Dr. Rivera, Neurology Faculty Stroke pager: [phone] Shahnaz Borges, MDPGY-4, NeurologyPager: [phone] signed by Romaine Rivera MD at 11/26/2022 [...] reported) and/or communicating results to the patient/family/caregiver. 91877-9Ulxiovs kwlyDR7444067Xncyjyvn, Hashem1.2.840.021542.1.13.104.2.7.2. 603954IlcomxamWrjrfyPN3815-44-78D61: 21:11Consult noteTXT1.2.840.098711.1.13.104.2.7.2 .884171|[id number] for patient varl06576-7Htkycoa kebyEJAM-SBBOFCPWPJG-IRYFPJBXNEQODDC MB - Health301 University CxlsXhzizxilnJbukrjymcYUYT6920529632 OKNWYUHZLKBMYAHFZJSQLW4090-98-41Y29: 21:111.2.840.127483.1.72.3.15|1.2.84 0.893529.1.13.104.2.7.2.727879_18956 02413 2022-11-25 9483-32-93D31:00:00Associated Analy Caceres [facility] 18:00:00 Order(s): CONSULT PS PASTORAL Barkley CARE Interactive Graphic Designer visited with patient in response to consult for pastoral care and support. Patient was awake and acknowledged patternmaker apprentice metal's presence. Pt was alone in room. The Pt said she was of Yazidism nicole. The PT. Expressed to the Interactive Graphic Designer of some fear,about her upcomming surgery that going to be done on her heart.Pt asked the Interactive Graphic Designer to pray for her and for God to give her peace. The Interactive Graphic Designer provided spiritual support through prayer of healing, peace and comfort. Interactive Graphic Designer provided pastoral presence, and validated feelings. Pastoral care will continue to follow up as needed. Rev.Analy Ferro [facility] Department of Pastoral CarePh: [phone]: [phone] 27818-1Bzzqylq pxloWS7173-06-81W92:31:33Consult noteTXT1.2.840.431781.1.13.104.2.7.2 .960787|[id number] for patient vdmg13516-2Ywdvasf jgitUJ085622796Czqzpbr M [address] [id number] UUPJCVGUQJPIPQNUFIAGGR9499-63-95H26: 31:331.2.840.319140.1.72.3.15|1.2.84 0.888476.1.13.104.2.7.2.727879_18956 00430 2022-11-25 0797-62-18J22:53:13Associated PED-PEDIATRICS [facility] 10:53:13 Order(s): CONSULT ALLERGY ALLERGY & [...] significant pericardial effusion, no significant valvular pathologyAPTT Ccpkvue59 - 36 Seconds >150 High Panic 81 [...] patient. - Plan also explained to via luxembourgish translatorPatient seen with Dr. Magaña. Thank you [...] see the fellow's note for additional details. 73375-2Nqokhnl yktmRM7999292Himn, Sarah1.2.840.285542.1.13.104.2.7.2.8 38179BqrmMokjsAH7902-05-78A32:58:19C onsult noteTXT1.2.840.450304.1.13.104.2.7.2 .803555|[id number] for patient vlos11247-0Hspthxj ksznYTNBH-EODFNHOCSZQKQ-AIQMXQESDJJM MBUTMB - Health301 University WuktXorflubfxIkopgrrvyWOUB1129044306 KMJCJYDGGGXXMMCKLAYBNO5205-81-49Y20: 58:191.2.840.035010.1.72.3.15|1.2.84 0.855252.1.13.104.2.7.2.727879_18954 35033 2022-11-24 2827-83-39T16:08:12Associated NS-NEUROLOGICAL [facility] 16:08:12 Order(s): CONSULT SURGERY NEUROSURGERY NEUROSURGERY CONSULTATION HISTORY AND PHYSICALAttending Neurosurgeon: Dr. 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), CAD c/b unspecified [place] (02/2022 per [facility]), HFpEF, hypertension, hyperlipidemia, COPD, [...] 100% 100% Weight: Height: Awake, alert, oriented c4FSGPB bilaterally at 3mmEOMI bilaterallySlight left lower facial [...] timeChristian MD CindyNeurosurgery ServiceFor inquiries please page [phone] signed by Burton Howell MD at 11/25/2022 12:23 PM CDTAssociated attestation - Burton Howell MD - 11/25/2022 12:23 PM CDT I personally evaluated and am primary in decision making on, Geetha Minor, and I agree with the documentation by Sinan White MD,neurosurgery resident.75818-0Tnxpiaq yfhhQM2686701Ylzhsz, Rudy P1.2.840.683530.1.13.104.2.7.2.85285 9YsbteaXpigOMC4785-02-58J60:23:14Con sul noteTXT1.2.840.604745.1.13.104.2.7.2 .257140|[id number] for patient dbtf32573-5Kvikect noteLNNS-NEUROLOGICAL SURGERYNS-NEUROLOGICAL SURGERY38 Craig StreetSwchHbqtsxfefLucuqjvccVUAV5938207464 FXJKJWJQLOLAGKELRCLRUN1045-51-09X40: 23:141.2.840.899606.1.72.3.15|1.2.84 0.275219.1.13.104.2.7.2.727879_18954 19579 History and Physical Notes Date/Time Note Provider Source 2022-11-24 11:33:08 6703-42-35L22:33:08Formatting of this note [facility] is different from the original.Images from [...] for amphetamines during her recent hospitalization.Workup at [facility] showed ST depression and TWI in [...] 454 ms QTC Calculation(Bazett) 460 ms P Meraux 19 degrees R Meraux 64 degrees T Meraux 254 degrees Normal sinus rhythm Possible Left [...] sedated at OSH prior to transfer to [facility], extubated on 10/30, required nicardipine gtt [...] develop- Sedation/Analgesia: NoneRespCOPDHx tobacco abuse- DuoNebs prn- S5VBIeijekijwvtedrSEJYSBPvzmp painReported CAD HFpEFBradycardiaHTNHLDPatient presenting as a transfer [...] evaluation of volume status- CXR- Will need [facility] this admission- Continue Plavix (allergic to [...] prophylaxis: heparinLines/Catheters:Peripheral IV 11/24/22 Right Antecubital Inserted DIRECTOR OF ACQUISITION MARKETING (Active) Number of days: 0 Dispo: CCUPrognosis: GuardedCode Status: FullJoel Willis, DOPGY-3, Department of Internal Medicine ssociated [...] ordering referrals and/or communicating with other health care team assistant (when not separately reported), documenting clinical information in the electronic or other health record, and care coordination (not separately reported).- hemodynamically stable- Neurosurgery consult for systemic AC / DAPT in the future, given h/o ICH- allergy consult for ASA desensitizationJOSE Cierra GONZALEZ MD, [facility], [facility], [facility], delawaret ProfessorCardiology, Advanced Heart Failure, LVAD & Transplant ServiceDate of service: [id number] and physical cvzhUY8345116Hdauzqescz-Vweyxxvc, Jose C1.2.840.759756.1.13.104.2.7.2.672235Jiqzq oufyu-SrteqffqHdjtIXR6386-65-10T15:30:41Hi story and physical noteTXT1.2.840.431000.1.13.104.2.7.2.40039 9|[id number] for patient hnve08774-2Bhjtzaw and physical noteLNUT[address] [id number] KDZJBBKBKFJZDTZW8481-96-23L08:30:411.2.840 .845594.1.72.3.15|1.2.840.546052.1.13.104. 2.7.2.727879_[id number] Notes Date/Time Note Provider Source 2022-11-29 13:58:46 7233-44-93M24:58:46Formatting Desi hernandez LVN [facility] of this note is different from the original.2nd call no contact. 54931-2Opqumvtws encounter HnkvXG9938-67-96D07:58:57Teleph one encounter NoteTXT1.2.840.657405.1.13.104. 2.7.2.831995|4951454669FSXvkwbr ble for patient eaic58486-5UjxyEC170258816Omoeb kellie Sotelo [address]TXTX[address] 17227GYIQOZXUZRGZBAAGBPZSBR1884 -09-14T13:58:571.2.840.360182.1 .72.3.15|1.2.840.079887.1.13.10 4.2.7.2.727879_[id number] 2022-11-29 12:58:12 0875-01-57N39:58:12Formatting [facility] of this note might be different from the original.TRANSITIONAL CARE MANAGEMENT ASSESSMENT11/29/2022 Geetha MinorVovwerlz366464SAzoakhw Martinez is a 47 year old /White female was admitted on 11/24/[address] She was discharged on 11/28/22 with discharge disposition of HR- Routine Discharge.Admitting Physician: Ryne Yoder FDischarge Diagnosis: NSTEMI (non-ST elevated myocardial infarction) [I21.4]No contact.No linked episodesTCM Rpv-dzwm-hs-face outreach documentation: Future Appointments: 46102-0Pdjlgsici encounter SmcyPZ6708-82-58T27:58:44Teleph one encounter NoteTXT1.2.840.631214.1.13.104. 2.7.2.491290|6608839374QFCfhilz ble for patient yhmb95479-3PptuVLUVXPBGDX[address] StreetTXTX[address] 08130EEGHLVMGYHNOLOLJEHCHXI1689 -09-14T12:58:441.2.840.377450.1 .72.3.15|1.2.840.814299.1.13.10 4.2.7.2.727879_[id number] 2022-11-28 16:51:33 0192-14-42Y59:51:33Formatting Sylvia Abad [facility] of this note might be different RN from the original.Problem: Discharge PlanningGoal: Adequate for dischargeOutcome: Adequate for dischargeGoal: Adequate to move to next level of careOutcome: Adequate for dischargeGoal: Knowledge of medication managementOutcome: Adequate for discharge Problem: Falls, Risk ofGoal: Absence of fallsOutcome: Adequate for discharge Problem: Nutrition DeficitGoal: Adequate nutritional intakeOutcome: Adequate for discharge Problem: PainGoal: Control of pain at or below patient's documented comfort goalOutcome: Adequate for dischargeGoal: Reduction in pain sensationOutcome: Adequate for discharge Problem: Bleeding, Risk ofGoal: Absence of impaired coagulation signs and symptomsOutcome: Adequate for dischargeGoal: Absence of active bleedingOutcome: Adequate for discharge Problem: Procedure RoutineGoal: Absence of post-procedure complicationsOutcome: Adequate for dischargeGoal: Knowledge of procedureOutcome: Adequate for discharge Problem: Mobility - ImpairedGoal: Able to achieve maximum mobility levelOutcome: Adequate for dischargeGoal: Able to use ambulatory assistive device appropriatelyOutcome: Adequate for discharge Problem: Skin integrity Impaired (Risk or Actual)Goal: Prevention of new skin breakdownOutcome: Adequate for discharge 41027-8Omcg of care uholBJ3233-16-10H79:51:41Plan of care noteTXT1.2.840.609894.1.13.104. 2.7.2.936931|[id number] [facility] wywa74855-1NlnwMW745144578Gmuvc feroz QUINTERO[address] PbloSaitnbwtsJjkoziivcVOMM55905 24020OKQJXUWMMGTDDCSUCYDUVG5995 -09-13T16:51:411.2.840.569356.1 .72.3.15|1.2.840.135322.1.13.10 4.2.7.2.727879_[id number] 2022-11-28 01:14:27 4890-34-44W16:14:27Formatting Trang mendes [facility] of this note might be different RN from the original.Problem: Discharge PlanningGoal: Adequate for dischargeOutcome: Progressing as expectedGoal: Adequate to move to next level of careOutcome: Progressing as expectedGoal: Knowledge of medication managementOutcome: Progressing as expected Problem: Falls, Risk ofGoal: Absence of fallsOutcome: Progressing as expected Problem: Nutrition DeficitGoal: Adequate nutritional intakeOutcome: Progressing as expected Problem: PainGoal: Control of pain at or below patient's documented comfort goalOutcome: Progressing as expectedGoal: Reduction in pain sensationOutcome: Progressing as expected Problem: Bleeding, Risk ofGoal: Absence of impaired coagulation signs and symptomsOutcome: Progressing as expectedGoal: Absence of active bleedingOutcome: Progressing as expected Problem: Procedure RoutineGoal: Absence of post-procedure complicationsOutcome: Progressing as expectedGoal: Knowledge of procedureOutcome: Progressing as expected Problem: Mobility - ImpairedGoal: Able to achieve maximum mobility levelOutcome: Progressing as expectedGoal: Able to use ambulatory assistive device appropriatelyOutcome: Progressing as expected Problem: Skin integrity Impaired (Risk or Actual)Goal: Prevention of new skin breakdownOutcome: Progressing as expected 71500-3Sdjx of care adnfKG2392-30-05K83:14:30Plan of care noteTXT1.2.840.730330.1.13.104. 2.7.2.905607|8111436511FYBkeaeu [facility] exdc78553-1DxdjTE128255169Vjjqm anders Morton RNUT[address] DwvkKswzihnwpFhrisoukyCPQT595[address] 67964DEIUNAABQVRCNVMXQCJKQI9273 -09-13T01:14:301.2.840.838413.1 .72.3.15|1.2.840.752227.1.13.10 4.2.7.2.727879_[id number] 2022-11-27 06:31:47 8338-65-54Z44:31:47Formatting Laisha Bartlett RN [facility] of this note might be different from the original.Problem: Discharge PlanningGoal: Adequate for dischargeOutcome: Progressing as expectedGoal: Adequate to move to next level of careOutcome: Progressing as expectedGoal: Knowledge of medication managementOutcome: Progressing as expected Problem: Falls, Risk ofGoal: Absence of fallsOutcome: Progressing as expected Problem: Nutrition DeficitGoal: Adequate nutritional intakeOutcome: Progressing as expected Problem: PainGoal: Control of pain at or below patient's documented comfort goalOutcome: Progressing as expectedGoal: Reduction in pain sensationOutcome: Progressing as expected Problem: Bleeding, Risk ofGoal: Absence of impaired coagulation signs and symptomsOutcome: Progressing as expectedGoal: Absence of active bleedingOutcome: Progressing as expected Problem: Procedure RoutineGoal: Absence of post-procedure complicationsOutcome: Progressing as expectedGoal: Knowledge of procedureOutcome: Progressing as expected Problem: Mobility - ImpairedGoal: Able to achieve maximum mobility levelOutcome: Progressing as expectedGoal: Able to use ambulatory assistive device appropriatelyOutcome: Progressing as expected Problem: Skin integrity Impaired (Risk or Actual)Goal: Prevention of new skin breakdownOutcome: Progressing as expected 38906-8Nnjh of care iixePV2935-07-69O89:31:49Plan of care noteTXT1.2.840.198801.1.13.104. 2.7.2.844783|[id number] [facility] syan34631-4AjswPX367199063Xqnp N. Au RNUTMBLEA REGIONAL MEDICAL CENTER - [address] XzylAepwlcjzcHsoxkurdgUDDZ83926 98712ZXSSIRSQIZAFGYFXLUSRHZ7658 -09-12T06:31:491.2.840.913218.1 .72.3.15|1.2.840.227086.1.13.10 4.2.7.2.727879_[id number] 2022-11-26 21:20:10 1570-14-09L32:20:10Formatting Angelia Cardenas RN [facility] of this note might be different from the original.Problem: Discharge PlanningGoal: Adequate for dischargeOutcome: Progressing as expectedGoal: Adequate to move to next level of careOutcome: Progressing as expectedGoal: Knowledge of medication managementOutcome: Progressing as expected Problem: Falls, Risk ofGoal: Absence of fallsOutcome: Progressing as expected Problem: Nutrition DeficitGoal: Adequate nutritional intakeOutcome: Progressing as expected Problem: PainGoal: Control of pain at or below patient's documented comfort goalOutcome: Progressing as expectedGoal: Reduction in pain sensationOutcome: Progressing as expected 97876-0Zjqx of care ypqyJS5059-70-00H26:20:13Plan of care noteTXT1.2.840.637660.1.13.104. 2.7.2.174504|[id number] [facility] [id number] candice Cardenas [facility] - [address]HgpoXjenizxsjCqdcscxgzXNPN78024 [id number]2306 -09-11T21:20:131.2.840.893194.1 .72.3.15|1.2.840.203387.1.13.10 [id number] 2022-11-26 17:36:46 7498-41-30D58:36:46Formatting Sushma Velazquez RN [facility] of this note might be different from the original.Problem: Discharge PlanningGoal: Adequate for dischargeOutcome: Progressing as expectedGoal: Adequate to move to next level of careOutcome: Progressing as expectedGoal: Knowledge of medication managementOutcome: Progressing as expected Problem: Falls, Risk ofGoal: Absence of fallsOutcome: Progressing as expected Problem: Nutrition DeficitGoal: Adequate nutritional intakeOutcome: Progressing as expected Problem: PainGoal: Control of pain at or below patient's documented comfort goalOutcome: Progressing as expectedGoal: Reduction in pain sensationOutcome: Progressing as expected 93683-5Jein of care dzktZR0940-04-44S39:36:51Plan of care noteTXT1.2.840.754141.1.13.104. 2.7.2.215490|[id number] ble for patient [id number] oscar Velazquez [address]TX[address] 51083OCFTVZKFTDDCNKWQCPUKMP1814 -09-11T17:36:511.2.840.541739.1 .72.3.15|1.2.840.049553.1.13.10 [id number] 2022-11-25 23:27:36 8396-67-87H69:27:36Formatting Chuyita Marcial [facility] of this note might be different RN from the original.Problem: Falls, Risk ofGoal: Absence of fallsOutcome: Progressing as expected Problem: PainGoal: Control of pain at or below patient's documented comfort goalOutcome: Progressing as expected 13114-5Opto of care mptbBM5762-26-61E86:27:40Plan of care noteTXT1.2.840.499822.1.13.104. 2.7.2.038723|[id number] ble for patient [id number] ia D Rodriguez [address]TXTX[address] 55405SDKMCIITHBTXQOWPSAXVWO7729 -09-10T23:27:401.2.840.892307.1 .72.3.15|1.2.840.765038.1.13.10 4.2.7.2.727879_[id number] 2022-11-25 17:36:51 2624-09-45P40:36:51Formatting Angelia Serrano son RN [facility] of this note might be different from the original.Problem: Falls, Risk ofGoal: Absence of fallsOutcome: Progressing as expected Problem: Nutrition DeficitGoal: Adequate nutritional intakeOutcome: Progressing as expected Problem: PainGoal: Control of pain at or below patient's documented comfort goalOutcome: Progressing as expectedGoal: Reduction in pain sensationOutcome: Progressing as expected Problem: Discharge PlanningGoal: Adequate for dischargeOutcome: Not progressing as expectedGoal: Adequate to move to next level of careOutcome: Not progressing as expectedGoal: Knowledge of medication managementOutcome: Not progressing as expected 66644-6Xhpl of care wxqyXS9405-56-62J12:36:56Plan of care noteTXT1.2.840.827033.1.13.104. 2.7.2.061260|[id number] [facility] [id number] candice Carrion [facility]UTMB[facility] - [address] BxceFlfnlujqpXqbqqagzoJCBZ55695 [id number]72 -09-10T17:36:561.2.840.988731.1 .72.3.15|1.2.840.091659.1.13.10 4.2.7.2.727879_[id number] 2022-07-30 20:59:40 [id number]:59:40 YAIMA GOMEZ [facility]ATIONGEET[facility] MINORFACILITY: DELORESLCoco #: [id number] Room: [address] [place] [address] #: [id number] : 1975DATE OF ADMISSION: 3DATE OF CONSULTATION: 07/30/2022REQUESTING PHYSICIAN:REFORESTATION WORKER: Yaima Gomez [facility] ENIDonsultation is with lower quadrant pain, possible tubo-ovarianabscesses.HISTORY OF PRESENT ILLNESS: 47-year-old female with history ofpain, left lower quadrant that began three days ago, was at [facility] and transferred here this morning. Thought to havehemorrhagic cyst in the past. Recently, then a CT showed aleft tubo-ovarian abscess. Pain better with antibiotics aswell as significant leukocytosis. However, she did reportimproved pain. No sore problems in the past. Does complain ofa vaginal discharge. She has no change in bowel habits. Nofever or chills. No nausea or vomiting. No urinary symptoms.No problems with the cast.PAST MEDICAL HISTORY: COPD, hypertension, and seizures.PAST SURGICAL HISTORY: Appendix, tonsillectomy.MEDICATIONS: Per reconciliation sheet. On IV antibiotics.ALLERGIES: PER CHART.REVIEW OF SYSTEMS:No current chest pain, shortness of breath, fever, or chills.PHYSICAL EXAMINATION:GENERAL: Awake, alert, no distress.VITAL SIGNS: Elevated BP noted. Afebrile. Vital signsstable.HEAD AND NECK: Unremarkable.CHEST: Clear.ABDOMEN: Obese. Soft. Tenderness in the left pelvic area.No peritonitis. No hernias.EXTREMITIES: Unremarkable.NEUROLOGIC: Nonfocal.LABORATORY DATA: Reviewed.IMPRESSION AND PLAN: Abnormal left adnexal per CT scan andclinical picture similar to this. Leukocytosis. Agree withcurrent plan, antibiotics, and LICENSED CLINICAL PSYCHOLOGIST. We will follow with you.JDF/MODLDD: 07/30/2022 17:17:10DT: 07/30/2022 20:59:40Job #: [id number] signed by: YAIMA GOMEZ at 2022-07-30 17:17:10.004FGRjktsdbzwcqb7350- 05-15T20:59:106664-26-14N64:29: [id number], ZNWPASULVNODXFHWWKJCP9448-06-15 T11:29:34
[2023-02-06] MEDS ORDERED: MORPHINE 4 MG/ML SYR ONE (20:59)
[2023-02-06] MEDS ORDERED: ONDANSETRON 4 MG/2 ML VIAL ONE (20:59)
[2023-02-06 21:04] LABS: Absolute Lymphocytes (CBC) 1.5 K/uL (0.7-4.9); Hematocrit 30.7 % (36.0-45.0); Lymphocytes % 26.4 % (15.3-44.8); MCV 91.1 fL (80-100); MPV 7.7 fL (7.6-11.3); Platelets 194 thou/uL (152-406); RBC Red Blood Cell Count 3.36 M/uL (3.86-4.86)
--- NOTE | 2023-02-06 21:13 | RAD REPORT ---
EXAM DESCRIPTION: RAD - Chest Single View - 02/06/2023 9:03 pm CLINICAL HISTORY: CHEST PAIN Chest pain. COMPARISON: Chest Single View dated 02/03/2023; Chest Pa And Lat (2 Views) dated 01/20/2023; Chest Si ngle View dated 01/18/2023; Chest Single View dated 01/12/2023 FINDINGS: Portable technique limits examination quality. The lungs are grossly clear. The heart is normal in size. No displaced fractures. IMPRESSION: No acute intrathoracic process suspected.
[2023-02-06 21:25] LABS: Protime INR 0.97
[2023-02-06 21:41] LABS: Albumin 3.6 g/dL (3.4-5.0); Bilirubin Direct 0.2 mg/dL (0-0.2); Bilirubin Indirect, Calculated 0.3 mg/dL (0.2-0.8); Bilirubin Total 0.5 mg/dL (0.2-1.0); Magnesium 1.7 mg/dL (1.6-2.4); Potassium 3.6 mEq/L (3.5-5.1); Protein, Total 6.6 g/dL (6.4-8.2)
[2023-02-06 21:43] LABS: Troponin High Sensitivity 62.3 pg/mL (<58.9)
--- NOTE | 2023-02-06 22:06 | ER ---
Nurse's Notes [facility] Name: Geetha Khan Age: 47 yrs Sex: Female : 1975 Arrival Date: 02/06/2023 Time: 20:17 Bed 7 Private MD: Diagnosis: Chest pain, unspecified;Pleuritic chest pain, non cardiac chest pain ;Hypertensive urgency Presentation: 02/06 20:26 Chief complaint: EMS states: Pt reports chest pain starting one hour ago after jb4 sneezing. Pt reports pain that is midline and radiates to the back. Pain is 9/10. Tried to give aspirin to pt, pt refused. Coronavirus screen: At this time, the client does not indicate any symptoms associated with coronavirus-19. Ebola Screen: No symptoms or risks identified at this time. Initial Sepsis Screen: Does the patient meet any 2 criteria? No. Patient's initial sepsis screen is negative. Does the patient have a suspected source of infection? No. Patient's initial sepsis screen is negative. Risk Assessment: Do you want to hurt yourself or someone else? Patient reports no desire to harm self or others. Onset of symptoms was February 06, 2023. Transition of care: patient was not received from another setting of care. 20:26 Method Of Arrival: EMS: [facility] jb4 20:26 Acuity: CORRINA 3 jb4 Historical: - Allergies: 20:30 Aspirin; jb4 20:30 CRANBERRY; jb4 20:30 FISH PRODUCT DERIVATIVES; jb4 20:30 GRAPEFRUIT; jb4 20:30 mushrooms; jb4 - Home Meds: 20:30 amlodipine oral [Active]; atorvastatin oral [Active]; Dexamethasone Oral [Active]; jb4 lisinopril Oral [Active]; Metoprolol Tartrate Oral [Active]; - PMHx: 20:30 Asthma; Cerebrovascular accident; Hypertension; Myocardial infarction; Seizures; jb4 Thyroid problem; COPD; - Family history:: not pertinent. Screenin:02 [facility] ED Fall Risk Assessment (Adult) History of falling in the last 3 months, jb4 including since admission No falls in past 3 months (0 pts) Confusion or Disorientation No (0 pts) Score/Fall Risk Level 0 - 2 = Low Risk Oriented to surroundings, Maintained a safe environment. Abuse screen: Denies threats or abuse. Nutritional screening: No deficits noted. Tuberculosis screening: No symptoms or risk factors identified. Assessment: 20:38 General: Appears in no apparent distress. comfortable, Behavior is calm. Pain: kinsey Complains of pain in chest Pain radiates to back Pain currently is 9 out of 10 on a pain scale. Pain began 1 hour ago. Neuro: Level of Consciousness is awake, alert, obeys commands, Oriented to person, place, time, situation. Cardiovascular: Patient's skin is warm and dry. Respiratory: Airway is patent Respiratory effort is even, unlabored, Respiratory pattern is regular, symmetrical. GI: No signs and/or symptoms were reported involving the gastrointestinal system. : No signs and/or symptoms were reported regarding the genitourinary system. EENT: No signs and/or symptoms were reported regarding the EENT system. Derm: Skin is intact, Skin is pink, warm \T\ dry. Musculoskeletal: Circulation, motion, and sensation intact. Range of motion: Pt unable to use left side due to prior CVA. 21:30 Reassessment: Patient appears in no apparent distress at this time. Patient and/or jb4 family updated on plan of care and expected duration. Pain level reassessed. Patient is alert, oriented x 3, equal unlabored respirations, skin warm/dry/pink. 23:02 Reassessment: Patient appears in no apparent distress at this time. Patient and/or jb4 family updated on plan of care and expected duration. Pain level reassessed. Patient is alert, oriented x 3, equal unlabored respirations, skin warm/dry/pink. Vital Signs: 20:26 BP 157 / 111; Pulse 67; Resp 16; Temp 97.9(O); Pulse Ox 100% on R/A; Weight 65.77 kg jb4 (M); Height 5 ft. 2 in. ; Pain 9/10; 21:58 BP 181 / 112; Pulse 56; Resp 16; Pulse Ox 99% on R/A; [facility] 22:16 BP 161 / 108; Pulse 63; Resp 16; Pulse Ox 97% on R/A; jb4 20:26 Body Mass Index 26.52 (65.77 kg, 157.48 cm) [facility] 20:26 Pain Scale: Adult [facility] ED Course: 20:20 Patient arrived in ED. jj6 20:22 Uriel Cannon MD is Attending Physician. sp4 20:30 Triage completed. jb4 20:30 Arm band placed on right wrist. jb4 20:47 Jaziel Storm, RN is Primary Nurse. jb4 20:50 Inserted saline lock: 20 gauge in right antecubital area, using aseptic technique. mc5 Blood collected. 21:05 XRAY Chest (1 view) In Process Unspecified. EDMS 21:43 Notified ED physician of a critical lab result(s). Troponin 62.5. cm10 23:02 No provider procedures requiring assistance completed. IV discontinued, intact, jb4 bleeding controlled, No redness/swelling at site. Pressure dressing applied. Patient maintains SpO2 saturation greater than 95% on room air. Administered Medications: 20:52 Drug: morphine IVP or IV 4 mg IVP once over 4 mins Route: IVP; Infused Over: 4 mins; jb4 Site: right antecubital; 20:52 Drug: Ondansetron IVP 4 mg IVP once; over 2 minutes Route: IVP; Site: right antecubital;jb4 22:17 Not Given (Other Intervention Used): teyuizmrymx94 mg IVP once jb4 22:17 Drug: cloNIDine PO 0.1 mg PO once Route: PO; jb4 Outcome: 22:05 Discharge ordered by . sp4 23:02 Discharged to home with family, jb4 23:02 Condition: stable 23:02 Discharge instructions given to patient, Instructed on discharge instructions, follow up and referral plans. Demonstrated understanding of instructions, follow-up care, 23:03 Patient left the ED. jb4 Signatures: Dispatcher [employer] EDNV Jaziel Storm, YANETH RN jb4 Bia Garciaj6 Uriel Cannon MD MD sp4 Kelsey Khan RN RN cm10 Lily Baig [facility]
--- NOTE | 2023-02-06 22:06 | EDPHYS ---
Physician Documentation [facility] Name: Geetha Khan Age: 47 yrs Sex: Female : 1975 Arrival Date: 02/06/2023 Time: 20:17 Bed 7 Private MD: ED Physician Uriel Cannon HPI: 02/06 20:22 This 47 yrs old Female presents to ER via Unassigned with complaints of sp4 Chest Pain. 20:43 Patient states she has some use at home developing midsternal to right-sided chest sp4 pain. Patient states she has a fractures on the right side that have occurred several weeks ago. She presents with EMS for evaluation of chest pain.. CT report review from prior record CT - Chest For Pe Angio - 01/19/2023 6:29 am CLINICAL HISTORY: The patient is 47 years old and is Female; CHEST PAIN TECHNIQUE: Axial computed tomographic angiography images of the chest with intravenous contrast. This CT exam was performed using one or more of the following dose reduction techniques: automated exposure control, adjustment of the mA and/or kV according to patient size, and/or use of iterative reconstruction technique. MIP reconstructed images were created and reviewed. Oblique reformatted images were created and reviewed. DLP: 311 mGy*cm COMPARISON: Chest radiograph of the same day. FINDINGS: PULMONARY ARTERIES: Unremarkable. No pulmonary embolism. AORTA: Aneurysm of the ascending aorta measuring approximately 4.3 cm. LUNGS: Unremarkable. No mass. No consolidation. PLEURAL SPACE: Unremarkable. No significant effusion. No pneumothorax. HEART: Coronary calcifications. No significant pericardial effusion. No evidence of RV dysfunction. MEDIASTINUM: Moderately prominent multifocal mediastinal lymph nodes predominantly in the AP window. BONES/JOINTS: No acute fracture. No dislocation. SOFT TISSUES: Unremarkable. LYMPH NODES: See above. IMPRESSION: 1. Aneurysm of the ascending aorta measuring approximately 4.3 cm. 2. No pulmonary embolism. No acute intrathoracic abnormality. Electronically signed by: Quentin Hernandez DO 01/18/2023 11:40 PM. Chest X ray review from prior visit - EXAM DESCRIPTION: RAD - Chest Single View - 02/03/2023 10:09 pm CLINICAL HISTORY: CHEST PAIN FINDINGS: Portable technique limits examination quality. The lungs are grossly clear. The heart is mildly enlarged in size. No displaced fractures. IMPRESSION: No acute intrathoracic process suspected.. 20:52 Last admission that occurred 01/08/2023 for chest pain, acute kidney injury, chronic sp4 diastolic heart failure, seizure disorder, hypertension, hyperlipidemia, CVA history of, tobacco use. Patient's medication list includes atorvastatin, folic acid, hydrocodone as needed, metoprolol XL 25 mg bedtime, lisinopril 20 daily.. 22:01 [facility] by Dr. Olson - Findings: 1. Left main: Normal. 2. LAD: Entirely normal luminal sp4 regularities. 3. Left circumflex is with luminal irregularities throughout. 4. RCA: Proximal 30%, otherwise normal. Conclusion: No significant coronary artery disease. SR/MODL . Historical: - Allergies: 20:30 Aspirin; jb4 20:30 CRANBERRY; jb4 20:30 FISH PRODUCT DERIVATIVES; jb4 20:30 GRAPEFRUIT; jb4 20:30 mushrooms; jb4 - Home Meds: 20:30 amlodipine oral [Active]; atorvastatin oral [Active]; Dexamethasone Oral [Active]; jb4 lisinopril Oral [Active]; Metoprolol Tartrate Oral [Active]; - PMHx: 20:30 Asthma; Cerebrovascular accident; Hypertension; Myocardial infarction; Seizures; jb4 Thyroid problem; COPD; - Family history:: not pertinent. ROS: 20:52 Constitutional: Negative for fever, chills, and weight loss, positive for right-sided sp4 chest pain 20:52 All other systems are negative, Exam: 20:52 Constitutional: This is a well developed, well nourished patient who is awake, alert, sp4 and in no acute distress. Patient is physically debilitated Head/Face: Normocephalic, atraumatic. Eyes: Pupils equal round and reactive to light, extra-ocular motions intact. Lids and lashes normal. Conjunctiva and sclera are not injected. Cornea within normal limits. Periorbital areas with no swelling, redness, or edema. ENT: Nares patent. No nasal discharge, no septal abnormalities noted. Tympanic membranes are normal and external auditory canals are clear. Oropharynx with no redness, swelling, or masses, exudates, or evidence of obstruction, uvula midline. Mucous membranes moist. Neck: Trachea midline, no thyromegaly or masses palpated, and no cervical lymphadenopathy. Supple, full range of motion without nuchal rigidity, or vertebral point tenderness. Chest/axilla: Normal chest wall appearance and motion. Nontender with no deformity. No lesions are appreciated. Cardiovascular: Regular rate and rhythm with a normal S1 and S2. No gallops, murmurs, or rubs. Normal PMI, no JVD. No pulse deficits. Respiratory: Lungs have equal breath sounds bilaterally, clear to auscultation and percussion. No rales, rhonchi or wheezes noted. No increased work of breathing, no retractions or nasal flaring. Abdomen/GI: Soft, non-tender, with normal bowel sounds. No distension or tympany. No guarding or rebound. No evidence of tenderness throughout. Back: No spinal tenderness. No costovertebral tenderness. Skin: Warm, dry with normal turgor. Normal color with no rashes, no lesions, and no evidence of cellulitis. MS/ Extremity: Pulses equal, no cyanosis. Neurovascular intact. Full, normal range of motion. Neuro: Awake and alert, GCS 15, oriented to person, place, time, and situation. Cranial nerves II-XII grossly intact. Motor strength 5/5 in all extremities. Sensory grossly intact. Psych: Awake, alert, with orientation to person, place and time. Behavior, mood, and affect are within normal limits 20:52 ECG was reviewed by the Attending Physician. EKG 2036 reveals normal sinus rhythm with a rate of [address] elevation or depression, there are inverted T waves in V6, normal intervals, also inverted T wave lead II Vital Signs: 20:26 BP 157 / 111; Pulse 67; Resp 16; Temp 97.9(O); Pulse Ox 100% on R/A; Weight 65.77 kg jb4 (M); Height 5 ft. 2 in. ; Pain 9/10; 21:58 BP 181 / 112; Pulse 56; Resp 16; Pulse Ox 99% on R/A; jb4 22:16 BP 161 / 108; Pulse 63; Resp 16; Pulse Ox 97% on R/A; jb4 20:26 Body Mass Index 26.52 (65.77 kg, 157.48 cm) jb4 20:26 Pain Scale: Adult jb4 MDM: 20:29 Patient medically screened. sp4 22:06 Differential diagnosis: acute myocardial infarction, acute pericarditis, anxiety, sp4 coronary artery disease chest wall pain, congestive heart failure. HEART Score: History: Slightly Suspicious (0), ECG: Non specific repolarization disturbance / LBTB / PM (1), Age: > 45 and < 65 years (1), Risk Factors: > or = 3 Risk factors for atherosclerotic disease (2), Troponin: < or = 1 x Normal Limit (0), Total Score = 4. The patient was not given aspirin in the Emergency Department. Aspirin not given, patient refused. Data reviewed: vital signs, nurses notes, EMS record, old medical records, lab test result(s), cardiac enzymes, CBC, electrolytes, hepatic panel, EKG, radiologic studies, plain films. ED course: Has history of negative heart cath on 12/05/2022. Troponin today is at the baseline. Even though is mildly elevated is at the baseline. Patient stable for discharge home. Advised to take her standard medications for blood pressure. . 02/06 20:28 Order name: Basic Metabolic Panel; Complete Time: 21:57 4 02/06 20:28 Order name: CBC with Diff; Complete Time: 21:57 4 02/06 20:28 Order name: LFT's; Complete Time: 21:57 4 02/06 20:28 Order name: Magnesium; Complete Time: 21:57 4 02/06 20:28 Order name: NT PRO-BNP; Complete Time: 21:57 4 02/06 20:28 Order name: PT-INR; Complete Time: 21:57 4 02/06 20:28 Order name: Troponin HS; Complete Time: 21:57 4 02/06 21:59 Interpretation: Troponin HS 62.3. 4 02/06 20:28 Order name: XRAY Chest (1 view); Complete Time: 21:18 4 02/06 20:28 Order name: EKG; Complete Time: 20:29 4 02/06 20:28 Order name: Cardiac monitoring; Complete Time: 20:41 4 02/06 20:28 Order name: EKG - Nurse/Tech; Complete Time: 20:41 4 02/06 20:28 Order name: IV Saline Lock; Complete Time: 20:47 4 02/06 20:28 Order name: Labs collected and sent; Complete Time: 20:47 4 02/06 20:28 Order name: O2 Per Protocol; Complete Time: 20:47 sp4 02/06 20:28 Order name: O2 Sat Monitoring; Complete Time: 20:47 sp4 EC:52 Rate is 74 beats/min. Rhythm is regular, Sinus Rhythm. QRS [place] is Normal. MS interval sp4 is normal. QRS interval is normal. QT interval is normal. T waves are Inverted in leads II, V6. Clinical impression: No evidence of ischemia. Interpreted by me. Administered Medications: 20:52 Drug: morphine IVP or IV 4 mg IVP once over 4 mins Route: IVP; Infused Over: 4 mins; jb4 Site: right antecubital; 20:52 Drug: Ondansetron IVP 4 mg IVP once; over 2 minutes Route: IVP; Site: right antecubital;jb4 22:17 Not Given (Other Intervention Used): bvryqswxmrm56 mg IVP once jb4 22:17 Drug: cloNIDine PO 0.1 mg PO once Route: PO; jb4 Disposition Summary: 02/06/23 22:05 Discharge Ordered Notes: Take your medications on time Location: Home sp4 Problem: new sp4 Symptoms: have improved sp4 Condition: Stable sp4 Diagnosis - Chest pain, unspecified sp4 - Pleuritic chest pain, non cardiac chest pain sp4 - Hypertensive urgency sp4 Followup: sp4 - With: Private Physician - When: 7 - 10 days - Reason: Recheck today's complaints Discharge Instructions: - Discharge Summary Sheet sp4 - Nonspecific Chest Pain, Adult, Tlkb-bx-Lewr sp4 Forms: - Patient Portal Instructions sp4 Signatures: Dispatcher [employer] Jaziel Cameron, YANETH WOLFE jb4 Uriel Cannon MD MD sp4
[2023-02-06] MEDS ORDERED: HYDRALAZINE HCL 20 MG/ML VIAL ONE (22:17)
[2023-02-06] MEDS ORDERED: cloNIDine HCL 0.1 MG TAB ONE (22:26)
[2023-02-06 23:30] VITALS: TEMP 97.9
[2023-02-06 23:32] VITALS: BP 161/108; O2SAT 97
--- NOTE | 2023-02-11 16:59 | EKG ---
Test Date: 2023-02-06 Test Time: 20:37:19 [employer]: PIERRE MEASUREMENT RESULTS: Intervals: Rate: 74 MS: 194 QRSD: 96 QT: 412 QTc: 457 [place]: P: 43 MS: 194 QRS: -6 T: 154 INTERPRETIVE STATEMENTS: Normal sinus rhythm Left ventricular hypertrophy with repolarization abnormality Abnormal ECG Compared to ECG 02/03/2023 21:09:32 No significant changes Electronically Signed On 02-11-23 16:53:54 MALLET CUTTER by Josse Olson
== END 2023-02-06 23:03 | disposition home or self-care (01) ==
LOC: ER 20:17
DX: R07.89 Other chest pain (principal); I16.0 Hypertensive urgency; R09.1 Pleurisy
CPT/HCPCS: 36415; 71045; 80048; 80076; 83735; 83880; 84484; 85025; 85610; 93005; 96374; 96375; 99285; J0360; J2405

== ENCOUNTER 2023-02-09 03:20 | Emergency (ER) | payer SELFPAY ==
--- OUTSIDE RECORDS SUMMARY | 2023-02-09 03:33 | XMS REPORT | Continuity of Care Document ---
:1975 Author Organization [facility] t Address [address] [place] [address] [place] [id number] Care Team Providers Name Role Phone Pcp, Patient Does Not Have A Primary Care Physician +[phone] MIR ARITA Attending Clinician Unavailable JUJU TAI Attending Clinician Unavailable KATHY ZEPEDA Attending Clinician Unavailable MURRAY ELISE Attending Clinician Unavailable Caty Wang Attending Clinician Unavailable Doctor Unassigned, Alleene Attending Clinician Unavailable Desi Sotelo LVN Attending Clinician Zohaib Parsons MD Attending Clinician [phone] Ryne Yoder MD Attending Clinician Meghana Felix MD Attending Clinician RYNE YODER Attending Clinician Unavailable Surjit ECHEVERRIA, Santiago Her Attending Clinician [phone] Kathy Zepeda MD Attending Clinician Unavailable Bessy Shah MD Attending Clinician Juju Tai DO Attending Clinician Sonido ECHEVERRIA, Amanda Tejada Attending Clinician [phone] Juan J ECHEVERRIA, Mir Meeks Attending Clinician Merchant ECHEVERRIA, Goyo Attending Clinician GOYO HANKINS Attending Clinician Unavailable Jason DYER, Murray Attending Clinician Vijay Jenkins Attending Clinician Fredis ECHEVERRIA, Popeye Cyndi Attending Clinician Fredrick ECHEVERRIA, Aida Barreto Attending Clinician [phone] Yariel ECHEVERRIA, Clifton Negro Attending Clinician [phone] Debra ECHEVERRIA, Kristin Cano Attending Clinician [phone] KRISTIN SHAH Attending Clinician Unavailable Servando ECHEVERRIA, Les Attending Clinician Nena Waller MD Attending Clinician Matias ECHEVERRIA, Leonid Orr Attending Clinician CLIFTON DE LUNA Attending Clinician Unavailable DAYRON FOSTER Attending Clinician Unavailable Cristian ECHEVERRIA, Dayron Hogan Attending Clinician [phone] ZAIN SALAS Attending Clinician Unavailable AMANDA [...] Iqra kes y failure y failure 00:00: [facility] wale with with 00 Center hypoxia hypoxia Encephalop Encephalop Disease Active C [facility] athy acute athy acute 8-14 Iqra kes 00:00: Medical 00 Center NIGEL (acute NIGEL (acute Disease Active [facility] kidney kidney 8-14 [facility] injury) injury) 00:00: Medical 00 Center Tubo-ovari Tubo-ovari Disease Active C [facility] [...] nce 2- [facility] 00:[facility]: Medical 00 Center Seizure Seizure Disease Recurre 2018- [facility] disorder disorder nce 2-02 [facility] 00 Center Anemia Anemia Disease Active 2018- [facility] 2-[facility] 00 Center Thrombocyt Thrombocyt Disease Active 2018-[address] osis osis 2-02 [facility] 00:[facility] Medical 00 Center Hypertensi Hypertensi Disease Active 2018-[address] ve crisis ve crisis 2-02 [facility] s 00:00: Medical 00 Center Allergies, Adverse Reactions, [...] 00 Medical Branch Aspirin Drug Active Anaphylaxis 3-[address] [facility] Allergy 5-15 [facility] 00:[facility]: Medical 00 Center Mushroom Drug Active Anaphylaxis 3-[address] [facility] Allergy 5-15 [facility] 00:00: Medical 00 Center Shellfis Drug Active Anaphylaxis 3-[address] [facility] h Allergy 5-15 [facility] Containi 00:00: Medical ng 00 Center Products ASPIRIN Allergy Active High Anaphylaxis 2023-0 SLE H 5-15 00:00: 00 MUSHROOM Allergy Active High Anaphylaxis 2023-0 SL EH 5-15 00:00: 00 SHELLFIS Allergy Active High Anaphylaxis 3-0 SL EH H 5-15 CONTAINI 00:00: NG 00 PRODUCTS FISH Allergy Active High Swelling 2019- SLSL CONTAINI 2-01 NG 00:00: PRODUCTS 00 [place] Drug Active Anaphylaxis, 2019-[address] [facility] Allergy Hives, 2- [facility] Itching 00:00: Medical 00 Center Fish Drug Active Swelling 2018- [facility] Containi Allergy 2- [facility] ng 00:00: Medical Products 00 Center CRANBERR Allergy Active High Anaphylaxis 2018- [facility] EH Y 04-18 00:00: 00 Social History Social Habit Start Date Stop Date Quantity Comments Source History SDOH [facility] Alcohol Std Drinks Medica l Center History SDOH [facility] Alcohol Comment Medical C enter History SDFL [facility] Transport Non-Med Medical Center Sexual orientation [facility] Gender identity [facility]it y of [facility] Cigarettes smoked 2022-11-24 2022-11-24 Univers ity of current (pack per 00:00:00 00:00:00 [facility] ) - Reported Branch Cigarette 2022-11-24 2022-11-24 University of pack-years 00:00:00 00:00:00 [facility] Tobacco use and 2022-11-24 2022-11-24 Smokeless Universit y of exposure 00:00:00 00:00:00 tobacco non-user [facility] Alcohol intake 2022-11-24 2022-11-24 Ex-drinker [facility] 00:00:00 00:00:00 (finding) [facility] History of Social 2022-11-07 2022-11-[address] [facility] function 00:00:00 00:00:00 Medical Center History of tobacco 2022-11-03 Passive smoker Un iversity of use 00:00:00 [facility] History SDOH 2022-08-06 2022-08-[address] [facility] Transport Med 00:00:00 00:00:[address] History SDFL 2022-08-06 2022-08-[address] [facility] Housing Unable to 00:00:00 00:00:00 Medical Center Pay History SDOH 2022-08-06 2022-08-[address] [facility] Housing Places 00:00:00 00:00:00 Medical Ce nter Lived History [facility] 2022-08-06 2022-08-[address] [facility] Housing Homeless 00:00:00 00:00:00 Medical Center Last Year History SDFL 2019-02-15 2019-02-15 1 [facility] Alcohol Binge 00:00:00 00:00:[address] [facility] [address] History [facility] 2019-02-15 2019-02-[address] [facility] Alcohol Frequency 00:00:00 00:00:00 Medical Center Sex [birth year] Universit y of 00:00:00 00:00:00 [facility] Smoking Status Start Date Stop Date Source Ex-smoker 2022-11-24 00:00:00 2022-11-24 [facility] [place] 00:00:00 Medical [place] Occasional tobacco 2022-07-30 00:00:00 [facility] smoker Center Medications Ordered Filled Start Stop Current Ordering Indication Dosage Frequency Signature Comments Components Source Medication Medication Date Date Medication? Clinician (SIG) Name Name QUEtiapine Yes 25mg Take 1 Unive rs 25 mg 9-14 tablet by ity of tablet 15:09: mouth in [place] [address] the Medical morning Branch and 1 tablet in the evening. furosemide 2022-0 Yes 20mg Take 1 Unive rs (LASIX) 20 9-14 tablet by ity of mg tablet 15:09: mouth in [place] [address] the Medical morning. Branch QUEtiapine 2022-0 Yes 25mg Take 1 Unive rs 25 mg 9-14 tablet by ity of tablet 15:09: mouth in [place] [address] the Medical morning Branch and 1 tablet in the evening. furosemide 3-0 Yes 20mg Take 1 Unive rs (LASIX) 20 9-14 tablet by ity of mg tablet 15:09: mouth in [place] [address] the Medical morning. Branch KCL 2022-0 Yes 20meq 20 mEq, Univers (KLOR-CON 9-14 Oral, ity of M20) tablet 14:00: DAILY, [facility] 20 mEq 00 First dose Medical on [facility] Branch 11/29/22 at 0900, Until Discontinu ed, Routine QUEtiapine 3-0 Yes 25mg Take 1 Unive rs 25 mg 9-13 tablet by ity of tablet 21:49: mouth in [place] [address] the Medical morning Branch and 1 tablet in the evening. furosemide 3-0 Yes 20mg Take 1 Unive rs (LASIX) 20 9-13 tablet by ity of mg tablet 21:49: mouth in [place] [address] the Medical morning. Branch QUEtiapine 2022- Yes 25mg Take 1 Unive rs 25 mg 11-28 tablet by ity of tablet 21:49: mouth in [place] [address] the Medical morning Branch and 1 tablet in the evening. furosemide 2022- Yes 20mg Take 1 Unive rs (LASIX) 20 11-28 tablet by ity of mg tablet 21:49: mouth in [place] [address] the Medical morning. Branch albuterol 2022- No 2{puff} 2 Puff, U nivers (VENTOLIN) 11-28 Inhalation it y of inhaler 2 20:59: 21:00 , [place]CE, 1 [place] Puff 00 :00 dose, On Sat Branch 11/28/22 at 1600, Routine magnesium 2022- No 4g 4 g, IV Univ ers sulfate in 11-28 Piggyback, it y of water 4 15:45: 18:49 at 25 [place] gram/50 mL 00 :00 mL/hr Medical (8 %) IV Administer Branc h Piggyback 4 over 120 g Minutes, ONCE, 1 dose, On Sat11/28/22 at 1045, Routine atorvastati 2022- No 40mg Take 1 Uni vers n 40 mg 11-28 tablet by ity of tablet 10:17: 00:00 mouth at [place] 14 :00 bedtime. Medical Branch amLODIPine 2022-2022- No 10mg Take 1 Univ ers 10 mg 11-28 tablet by ity of tablet 10:12: 00:00 mouth in [place] 07 :00 the Medical morning. Branch NIFEdipine 2022-0 2022- No 60mg Take 1 Univ ers ER 60 mg 11-28 tablet by ity o f tablet 10:12: 00:00 mouth in [place] 04 :00 the Medical morning. Branch metoprolol 2022-2022- No 50mg Take 1 Univ ers tartrate 11-28 tablet by ity o f (LOPRESSOR) 10:12: 00:00 mouth [place] 50 mg 04 :00 the Medical tablet morning Branch and 1 tablet in the evening. amLODIPine 2022-0 Yes [id number] 2.5mg Take 1 Univers 2.5 mg 9-13 tablet by ity of tablet 00:00: mouth in [place] 00 the Medical morning. Branch metoprolol 3-0 Yes [id number] 12.5mg Take 0.5 Univers tartrate 25 9-13 tablets by it y of mg tablet 00:00: [place] the Medical morning Branch and 0.5 tablets in the evening. atorvastati 3-0 Yes [id number] 40mg Take 1 Univers n 40 mg 9-13 tablet by ity of tablet 00:00: mouth at [place] 00 bedtime. Medical Branch amLODIPine 3-0 Yes [id number] 2.5mg Take 1 Univers 2.5 mg 9-13 tablet by ity of tablet 00:00: mouth in [place] 00 the Medical morning. Branch metoprolol 3-0 Yes [id number] 12.5mg Take 0.5 Univers tartrate 25 9-13 tablets by it y of mg tablet 00:00: [place] 00 the Medical morning Branch and 0.5 tablets in the evening. atorvastati 2022-0 Yes [id number] 40mg Take 1 Univers n 40 mg 9-13 tablet by ity of tablet 00:00: mouth at [place] 00 bedtime. Medical Branch amLODIPine 2022-0 Yes [id number] 2.5mg Take 1 Univers 2.5 mg 9-13 tablet by ity of tablet 00:00: mouth in [place] 00 the Medical morning. Branch metoprolol 3-0 Yes [id number] 12.5mg Take 0.5 Univers tartrate 25 9-13 tablets by it y of mg tablet 00:00: [place] 00 the Medical morning Branch and 0.5 tablets in the evening. atorvastati 3-0 Yes [id number] 40mg Take 1 Univers n 40 mg 9-13 tablet by ity of tablet 00:00: mouth at [place] 00 bedtime. Medical Branch amLODIPine 3-0 Yes [id number] 2.5mg Take 1 Univers 2.5 mg 9-13 tablet by ity of tablet 00:00: mouth in [place] 00 the Medical morning. Branch metoprolol 3-0 Yes [id number] 12.5mg Take 0.5 Univers tartrate 25 9-13 tablets by it y of mg tablet 00:00: [place] 00 the Medical morning Branch and 0.5 tablets in the evening. atorvastati 2023-0 Yes [id number] 40mg Take 1 Univers n 40 mg 11-28 tablet by ity of tablet 00:00: mouth at [place] 00 bedtime. Medical Branch HYDROcodone Yes 1{tbl} [...] Routine, Pain (scale 1-3) nitroglycer 2022- No [id number] .8mg 0.8 mg, Univers in 11-27 Sublingual ity of (NITROSTAT) 20:15: 19:15 , ONCE, 1 [place] sublingual 00 :00 dose, On Medic al tablet 0.8 Tue Branch mg 11/27/22 at 1515, KASSIDY iopamidol 2022- No [id number] 80mL 80 mL, U nivers (ISOVUE 11-27 Intravenou ity o f 370-500 mL) 20:15: 19:25 s, ONCE, 1 [place] injection 00 :00 dose, On Medica l 80 mL e Branch 11/27/22 at 1515, Routine acetaminoph 2022- No 1{tbl} 1 tablet, Univers en-codeine 11-27 Oral, ity of (TYLENOL 11:15: 10:29 ONCE, 1 [place] #3) 300-30 00 :00 dose, On Medic al mg tablet 1 Tue Branch tablet 11/27/22 at 0615, Routine acetaminoph 0 2022- No 1{tbl} 1 tablet, Univers en-codeine 11-26 Oral, ity of (TYLENOL 18:45: 18:50 ONCE, 1 [place] #3) 300-30 00 :00 dose, On Medic al mg tablet 1 Sat [place] tablet 11/26/22 at 1345, Routine metoprolol Yes 12.5mg 12.5 mg, U nivers tartrate 11 Oral, BID, ity o f (LOPRESSOR) 13:00: First dose [place] tablet 12.5 00 on Mon Medica l mg 11/26/22 at Branch 0800, Until Discontinu ed, Routine perflutren 2022- No [id number] 3mL 3 mL, IV Univers protein-A 11-25 Push, ity of microsphr 15:00: 15:00 ONCE, 1 [place] (OPTISON) 00 :00 dose, On Medica l injection 3 [facility] mL 11/25/22 at 1000, Routine pantoprazol Yes 40mg 40 mg, Univ ers e 11-25 Oral, ity of (PROTONIX) 14:00: DAILY, [place] EC tablet 00 First dose Medi wale 40 mg on [facility] 11/25/22 at 0900, Until Discontinu ed, Routine clopidogreL 2022- No 75mg 75 mg, Uni vers (PLAVIX) 75 11-25 Oral, ity of mg tablet 14:00: 14:47 DAILY, [place] 75 mg 00 :08 First dose Medical on [facility] 11/25/22 at 0900, Until Discontinu ed, Routine magnesium 2022- No 4g 4 g, IV Univ ers sulfate in 11-25 Piggyback, it y of water 4 04:15: 07:19 at 25 [place] gram/50 mL 00 :00 mL/hr Medical (8 %) IV Administer Branc h Piggyback 4 over 120 g Minutes, ONCE, 1 dose, On [facility] 11/24/22 at 2315, Routine atorvastati Yes 40mg 40 mg, Univ ers n (LIPITOR) 11-25 Oral, QHS, it y of tablet 40 02:00: First dose [place] mg 00 on [facility] Medical 11/24/22 at Branch 2100, Until Discontinu [...] dose, On 11/24/22 at 1615, Routine ipratropium 0 Yes 3mL 3 mL, Unive rs -albuteroL [...] dose, On 11/24/22 at 1245, Routine nitroglycer Yes .4mg 0.4 mg, Uni vers in 11-24 Sublingual ity of (NITROSTAT) 17:23: , Q5MIN [place] as sublingual 08 PRN, Medical tablet 0.4 Starting Branc h mg on 11/24/22 at 1223, Until Discontinu ed, Routine, Chest pain heparin 0 202- No 0U/h 0-2,750 Univer s 25,000 11-24-11 [...] Rang e, Dosing and Testing: &nbs p;FOR [facility], [employer], AND [facility] ONLY &nbs p; - aPTT < 35: [...] Center mouth daily for 30 days. thiamine 3- No 100mg QD Take 1 [facility] 100 MG 11-14 tablet [facility] tablet 00:00: 23:59 (100 mg Medical 00 :00 total) by Center mouth daily for 30 days. atorvastati 2022-0 2023- Yes 40mg QD Take [address] n (LIPITOR) 11-13 tablet (40 L ukes 40 MG 00:00: 23:59 mg total) Medica l tablet 00 :00 by mouth Center nightly. atorvastati 2022-2023- Yes 40mg QD Take [address] n (LIPITOR) 11-13 tablet (40 L ukes 40 MG 00:00: 23:59 mg total) Medica l tablet 00 :00 by mouth Center nightly. QUEtiapine 2022-0 2022- No 25mg Q.5D Take [address] (SEROquel) 11-13 tablet (25 Iq[place] kes 25 MG 00:00: 23:59 mg total) Medica l tablet 00 :00 by mouth 2 Center (two) times daily for 30 days. QUEtiapine 2022-0 2022- No 25mg Q.5D Take [address] (SEROquel) 11-13 tablet (25 Iqra kes 25 MG 00:00: 23:59 mg total) Medica l tablet 00 :00 by mouth 2 Center (two) times daily for 30 days. furosemide 0 Yes 20mg QD Take 1 [facility] (LASIX) 20 - tablet (20 Reyna es MG tablet 00:00: mg total) Med ical 00 by mouth Center in the morning. furosemide 2022-0 2022- No 20mg QD Take [address] (LASIX) 20 -12 11- tablet (20 Iqra kes MG tablet 00:00: 00:00 mg total) Me dical 00 :00 by mouth Center in the morning. furosemide 2022-0 2022- No 20mg QD Take [address] (LASIX) 20 -28 -29 tablet (20 Iqra kes MG tablet 00:00: [...] QD Take [address] [facility] n (LIPITOR) 08-11- tablet (40 L ukes 40 MG 00:00: 23:59 mg total) Medica l tablet 00 :00 by mouth Center nightly. atorvastati 2022- No 40mg QD Take [address] n (LIPITOR) 08-11- tablet (40 L ukes 40 MG 00:00: 00:00 mg total) Medica l tablet 00 :00 by mouth Center nightly. NIFEdipine 2022- No 60mg QD Take [address] (PROCARDIA- 08-11- tablet (60 L ukes XL) 60 MG 00:00: 00:00 mg total) Me dical (OSM) 24 hr 00 :00 by mouth Cent er tablet in the morning. metoprolol 2022- No 50mg Q.5D Take [address] tartrate 08-11 tablet (50 Luke s (LOPRESSOR) 00:00: 00:00 mg total) Medical 50 MG 00 :00 by mouth Center tablet in the morning and 1 tablet (50 mg total) before bedtime. atorvastati 2022- No 40mg QD Take [address] n (LIPITOR) 08-11- tablet (40 L ukes 40 MG 00:00: 00:00 mg total) Medica l tablet 00 :00 by mouth Center nightly. NIFEdipine 2022-2022- No 60mg QD Take [address] (PROCARDIA- -11 11-29 tablet (60 L ukes XL) 60 MG 00:00: 00:00 mg total) Me dical (OSM) 24 hr 00 :00 by mouth Cent er tablet in the morning. metoprolol 2022- No 50mg Q.5D Take [address] tartrate 08-11-29 tablet (50 Luke s (LOPRESSOR) 00:00: 00:00 [...] Cent er tablet in the morning. NIFEdipine 2022-2022- No 60mg QD Take 1 [...] mouth Center nightly. metroNIDAZO 2022-2022- No 500mg [id number] Take [address] [facility] (FLAGYL) 08-03 [id number] tablet [facility] 500 MG 00:00: 00:00 3D [...] Center nightly. metroNIDAZO 2022-0 2022- No 500mg Q.[id number] Take [address] [facility] (FLAGYL) 08-03 [id number] tablet [facility] 500 MG 00:00: 00:00 3D [...] mouth Center nightly. metroNIDAZO 2022-2022- No 500mg Q.[id number] Take [address] [facility] (FLAGYL) 08-03 [id number] tablet [facility] 500 MG 00:00: 00:00 3D [...] Q.5D Take [address] (MONODOX) 08-03- capsule [facility] 100 MG 00:00: 00:00 (100 [...] mouth Medica l tablet 09 :00 daily. [place] divalproex 2022-2022- No epilepsy 125mg QD Take [address] (DEPAKOTE) 5-15 05-15 mg by [facility] 125 MG EC 14:52: 00:00 mouth Medica l tablet 09 :00 daily. [place] divalproex 2022- No epilepsy 125mg QD Take [address] (DEPAKOTE) 5-15 05-15 mg by [facility] 125 MG EC 14:52: 00:00 mouth Medica l tablet 09 :00 daily. [place] divalproex 2018-03 Yes epilepsy 125mg QD Take [address] (DEPAKOTE) 2-04 mg by [facility] 125 MG EC 10:36: mouth Medical tablet 04 daily. [place] divalproex 2018-03 Yes epilepsy 125mg QD Take [address] (DEPAKOTE) 2-04 mg by [facility] 125 MG EC 10:36: mouth Medical tablet 04 daily. [place] divalproex 2018-03 Yes epilepsy 125mg QD Take [address] (DEPAKOTE) 2-04 mg by [facility] 125 MG EC 10:36: mouth Medical tablet 04 daily. [place] famotidine 2018-03 Yes 1{tbl} Take 1 [facility] [...] [facility] Arterial blood by [facility] Pulse oximetry Branch Systolic blood 2022-11-29 01:23:00 126 mm[Hg] Univer sity of pressure [facility] Diastolic blood 2022-11-29 01:23:00 75 [facility]Hg[facility] 2022-11-29 01:23:00 72 /min [facility] Body temperature 2022-11-29 01:23:00 36.94 Nahomi [facility] Body weight 2022-11-28 05:16:00 70.421 kg [facility] BMI 2022-11-28 05:16:00 28.40 kg/m2 [facility] Body height 2022-11-24 16:52:00 157.5 cm [facility] WEIGHT 2022-11-12 07:05:00 74.6 kg WEIGHT 2022-11-11 [...] cm Heart rate 2022-11-13 20:42:00 75 /min [facility] Respiratory rate 2022-11-13 20:42:00 18 /min [facility] Oxygen saturation in 2022-11-13 20:42:00 98 /min [facility] Arterial blood by Medical Ce nter Pulse oximetry Systolic blood 2022-11-13 16:00:00 124 mm[Hg] [facility] Diastolic blood 2022-11-13 16:00:00 74 mm[Hg] [facility] Body temperature 2022-11-13 16:00:00 36.44 Nahomi [facility] Body weight 2022-11-12 07:05:00 74.6 kg [facility] BMI 2022-11-12 07:05:00 30.08 kg/m2 [facility] Heart rate 2022-08-11 12:33:33 76 /min [facility] Respiratory rate 2022-08-11 12:33:33 18 /min [facility] Oxygen saturation in 2022-08-11 12:33:33 97 /min [facility] Arterial blood by Medical Ce nter Pulse oximetry Body temperature 2022-08-11 12:33:11 36.56 Nahomi [facility] Systolic blood 2022-08-11 12:32:45 129 mm[Hg] [facility] Diastolic blood 2022-08-11 12:32:45 80 mm[Hg] [facility] Body height 2022-08-05 19:35:00 157.5 cm [facility] Body weight 2022-08-05 19:35:00 58.968 kg [facility] BMI 2022-08-05 19:35:00 23.78 kg/m2 [facility] Procedures Procedure Date / Time Performing Clinician Source Performed REFERRAL- 2023-01-24 06:01:00 Doctor Unassigned, No [facility] REQUEST/RESPONSE Name Medical Branch MAGNESIUM 2022-11-28 09:22:00 Casi Maddox [facility] BASIC METABOLIC PANEL 2022-11-28 09:22:00 Casi Maddox [facility] (NA, K, CL, CO2, Medical Branch GLUCOSE, BUN, CREATININE, CA) CBC WITH DIFF 2022-11-28 09:22:00 Casi Maddox [facility] CT ANGIOGRAPHY 2022-11-27 19:24:21 Tori Hanna [facility] CORONARIES WITH CARDIAC [facility] CALCIUM SCORE CT HEAD WO CONTRAST 2022-11-27 17:24:05 Milagros Choe [facility] CBC WITHOUT DIFF 2022-11-27 09:15:00 Lazaro [facility] MAGNESIUM 2022-11-26 09:21:00 Paul [facility] HEPATIC FUNCTION PANEL 2022-11-26 09:21:00 Joel Willis [facility] ([id number]) (ALB,T.PRO,BILI Medical Branch T,BU/BC,ALT,AST,ALK PHOS) BASIC METABOLIC PANEL 2022-11-26 09:21:00 Paul [facility] (NA, K, CL, CO2, Medical Branch GLUCOSE, BUN, CREATININE, CA) CBC WITH DIFF 2022-11-26 09:21:00 Paul [facility] ACTIVATED PARTIAL 2022-11-25 22:48:[address] [facility] EKG-12 LEAD 2022-11-25 17:52:00 Issa [facility] TROPONIN I 2022-11-25 17:51:00 Philip Chris [facility] HB ECG ROUTINE & RHYTHM 2022-11-25 17:39:36 Joel Willis [facility] ACTIVATED PARTIAL 2022-11-25 15:42:[address] [facility] TRANSTHORACIC ECHO (TTE) 2022-11-25 14:57:34 Joel Willis [facility] COMPLETE W/ CONTRAST Medical Bra nch MAGNESIUM 2022-11-25 09:20:00 Lazaro [facility] BASIC METABOLIC PANEL 2022-11-25 09:20:[address] [facility] (NA, K, CL, CO2, Medical Branch GLUCOSE, BUN, CREATININE, CA) URINE DRUG (IMMUNOASSAY) 2022-11-25 07:32:00 Joel Willis [facility] - COMPREHENSIVE DRUG Medical Bra nch SCREEN GC & CHLAMYDIA AMPLIFIED 2022-11-25 07:32:00 Joel Willis [facility] ASSAY [facility] URINE DRUG (LCMSMS) - 2022-11-25 07:32:[address] [facility] SYNTHETIC OPIATES PANEL Medical Branch CBC WITHOUT DIFF 2022-11-25 07:31:00 Lazaro [facility] ACTIVATED PARTIAL 2022-11-25 07:31:[address] [facility] URINALYSIS 2022-11-25 07:31:00 Lazaro [facility] MAGNESIUM 2022-11-25 01:31:00 Bruno [facility] BASIC METABOLIC PANEL 2022-11-25 01:31:00 [facility] ([facility], K, CL, CO2, Medical Branch GLUCOSE, BUN, CREATININE, CA) ACTIVATED PARTIAL 2022-11-25 01:31:[address] [facility] TROPONIN I 2022-11-24 23:01:00 Lazaro [facility] BLOOD CULTURE SCREEN 2022-11-24 22:57:00 Joel Willis [facility] XR CHEST 1 VW 2022-11-24 21:30:59 Joel Willis [facility] US ABDOMEN LIMITED 2022-11-24 21:30:31 Joel Willis [facility] XR CHEST 1 VW 2022-11-24 20:37:00 Joel Willis [facility] CT HEAD WO CONTRAST 2022-11-24 18:42:54 Joel Willis [facility] ACTIVATED PARTIAL 2022-11-24 17:43:00 Joel Willis [facility] CBC WITH DIFF 2022-11-24 16:39:00 Lazaro [facility] MRSA / MSSA SCREEN BY 2022-11-24 16:39:00 Lazaro [facility] PCR, NARES [facility] TROPONIN I 2022-11-24 16:34:00 Lazaro [facility] THYROID STIMULATING 2022-11-24 16:34:00 Lazaro [facility] HORMONE [facility] Branch HEPATIC FUNCTION PANEL 2022-11-24 16:34:00 Lazaro [facility] ([id number]) (ALB,T.PRO,BILI Medical Branch T,BU/BC,ALT,AST,ALK PHOS) BASIC METABOLIC PANEL 2022-11-24 16:34:00 [facility] (NA, K, CL, CO2, Medical Branch GLUCOSE, BUN, CREATININE, CA) LIPID PANEL 2022-11-24 16:34:00 Lazaro [facility] ([id number])(TOTAL Medical Branch CHOLESTEROL, TRIGLYCERIDES, HDL) GLYCOSYLATED HEMOGLOBIN 2022-11-24 16:34:00 Lazaro [facility] (A1C) [facility] PROTHROMBIN TIME / INR 2022-11-24 16:34:00 Lazaro [facility] HEPATITIS B SURFACE 2022-11-24 16:34:00 Lazaro [facility] ANTIBODY [facility] Branch HEPATITIS B SURFACE 2022-11-24 16:34:00 Lazaro [facility] ANTIGEN [facility] HCV ANTIBODY 2022-11-24 16:34:00 [facility] VIRUS 2022-11-24 16:34[facility]00 [facility] IGM [facility] N-TERMINAL PRO-BNP 2022-11-24 16:34:00 Lazaro [facility] [facility] HIV 1/2 AG-AB WITH 2022-11-24 16:34:00 [facility] EKG-12 LEAD 2022-11-24 16:22:20 Issa [facility] POCT-GLUCOSE METER 2022-11-13 12:03:00 Goyo Hankins [facility] PHOSPHORUS 2022-11-13 04:55:00 Merchant, [facility] MAGNESIUM 2022-11-13 04:55:00 Merchant, [facility] CBC W/PLT COUNT & AUTO 2022-11-13 04:55:00 Kaylahant, [facility] CBC W/PLT COUNT & AUTO 2022-11-13 04:55:00 Chelseat, [facility] POCT-GLUCOSE METER 2022-11-12 21:27:00 Kaylahant, [facility] POCT-GLUCOSE METER 2022-11-12 18:07:00 Merchant, [facility] POCT-GLUCOSE METER 2022-11-12 13:01:00 Kaylahant, [facility] POCT-GLUCOSE METER 2022-11-12 06:34:00 Chelseat, [facility] BASIC METABOLIC PANEL 2022-11-12 04:44:00 Merchant, [facility] PHOSPHORUS 2022-11-12 04:44:00 Merchant, [facility] MAGNESIUM 2022-11-12 04:44:00 Kaylahant, [facility] CBC W/PLT COUNT & AUTO 2022-11-12 04:44:00 Chelseat, [facility] CBC W/PLT COUNT & AUTO 2022-11-12 04:44:00 Chelseat, [facility] POCT-GLUCOSE METER 2022-11-11 23:33:00 Kaylahant, [facility] POCT-GLUCOSE METER 2022-11-11 17:24:00 Merchant, [facility] POCT-GLUCOSE METER 2022-11-11 12:50:00 Merchant, [facility] POCT-GLUCOSE METER 2022-11-11 07:10:00 Kaylahant, [facility] BASIC METABOLIC PANEL 2022-11-11 04:41:00 Kaylahant, [facility] PHOSPHORUS 2022-11-11 04:41:00 Merchant, [facility] MAGNESIUM 2022-11-11 04:41:00 Merchant, [facility] CBC W/PLT COUNT & AUTO 2022-11-11 04:41:00 Merchant, [facility] CBC W/PLT COUNT & AUTO 2022-11-11 04:41:00 Merchant, [facility] POCT-GLUCOSE METER 2022-11-11 00:15:00 Merchant, [facility] POCT-GLUCOSE METER 2022-11-10 17:10:00 Merchant, [facility] POCT-GLUCOSE METER 2022-11-10 16:56:00 Merchant, [facility] POCT-GLUCOSE METER 2022-11-10 12:12:00 Merchant, [facility] POCT-GLUCOSE METER 2022-11-10 06:57:00 Merchant, [facility] BASIC METABOLIC PANEL 2022-11-10 04:59:00 Merchant, [facility] PHOSPHORUS 2022-11-10 04:59:00 Merchant, [facility] MAGNESIUM 2022-11-10 04:59:00 Merchant, [facility] CBC W/PLT COUNT & AUTO 2022-11-10 04:59:00 Merchant, [facility] CBC W/PLT COUNT & AUTO 2022-11-10 04:59:00 Merchant, [facility] POCT-GLUCOSE METER 2022-11-09 23:21:00 Merchant, [facility] POCT-GLUCOSE METER 2022-11-09 17:12:00 Merchant, [facility] POCT-GLUCOSE METER 2022-11-09 12:09:00 Merchant, [facility] VANCOMYCIN LEVEL, TROUGH 2022-11-09 09:28:00 [facility] POCT-GLUCOSE METER 2022-11-09 05:53:00 Mercyunier [facility] BASIC METABOLIC PANEL 2022-11-09 03:49:00 [facility] PHOSPHORUS 2022-11-09 03:49:00 [facility] MAGNESIUM 2022-11-09 03:49:00 [facility] SalterConstantino [facility] CBC W/PLT COUNT & AUTO 2022-11-09 03:49:00 [facility] W/[facility] COUNT & AUTO 2022-11-09 03:49:00 [facility] POCT-GLUCOSE METER 2022-11-08 23:58:00 Merchant [facility] BASIC METABOLIC PANEL 2022-11-08 18:20:00 [facility] POCT-GLUCOSE METER 2022-11-08 17:17:00 Kaylahant [facility] POCT-GLUCOSE METER 2022-11-08 12:24:00 Merchant, [facility] POCT-GLUCOSE METER 2022-11-08 05:58:00 Juan J [facility] BASIC METABOLIC PANEL 2022-11-08 04:09:00 [facility]US 2022-11-08 04:09:00 [facility] Meeks [facility] MAGNESIUM 2022-11-08 04:09:00 [facility] Constantino [facility] CBC W/PLT COUNT & AUTO 2022-11-08 04:09:00 [facility] CBC W/PLT COUNT & AUTO 2022-11-08 04:09:00 Juan J [facility] XR ABDOMEN/KUB 1 VIEW 2022-11-07 21:11:00 [facility] BASIC METABOLIC PANEL 2022-11-07 17:58:00 Mir Arita [facility] BLOOD CULTURE 2022-11-07 10:27:00 Tiffanie Noel [facility] POCT-GLUCOSE METER 2022-11-07 06:01:00 Amanda Head [facility] HIGH SENSITIVITY 2022-11-07 03:17:00 [facility] TROPONIN I [place] BASIC METABOLIC PANEL 2022-11-07 03:17:00 Agustin Alegre, [facility] Keanu [place] PHOSPHORUS 2022-11-07 03:17:00 [facility] [place] MAGNESIUM 2022-11-07 03:17:00 [facility] [place] CBC W/PLT COUNT & AUTO 2022-11-07 03:17:00 Agustin [facility] CBC W/PLT COUNT & AUTO 2022-11-07 03:17:00 Saeid Camp [facility] DIFFERENTIAL Center POCT-GLUCOSE METER 2022-11-07 00:13:00 Amanda Head [facility] HIGH SENSITIVITY 2022-11-06 21:18:00 Tiffanei oNel Ruthie [facility] TROPONIN I [place] BLOOD CULTURE 2022-11-06 14:48:00 [facility] [place] URINALYSIS W/ REFLEX 2022-11-06 14:48:00 Tesha Valladares [facility] URINE CULTURE [facility] PT/APTT 2022-11-06 14:47:00 Tesha [facility] [place] HIGH SENSITIVITY 2022-11-06 14:47:00 Tiffanie Noel [facility] TROPONIN I [place] BLOOD GAS, ARTERIAL 2022-11-06 14:46:[address] [facility] [place] XR CHEST 1 VIEW PORTABLE 2022-11-06 12:18:35 Tesha Valladares [facility] / BEDSIDE Jayla [place] BLOOD CULTURE 2022-11-06 10:38:00 Tesha Valladares [facility] LACTIC ACID, VENOUS 2022-11-06 10:38:00 Tesha Valladares [facility] PROCALCITONIN 2022-11-06 10:38:00 Tesha Valladares [facility] HIGH SENSITIVITY 2022-11-06 10:38:00 Hortensia [facility] TROPONIN I [facility] POCT-BLOOD GASES, 2022-11-06 10:38:00 Elvia, [facility] ARTERIAL [place] POCT-SODIUM 2022-11-06 10:38:00 Tai, [facility] POCT-POTASSIUM 2022-11-06 10:38:00 Tai, [facility] POCT-HEMOGLOBIN 2022-11-06 10:38:00 Tai, [facility] POCT-HEMATOCRIT 2022-11-06 10:38:00 Tai, [facility] POCT-GLUCOSE 2022-11-06 10:38:00 Elvia, [facility] ECG 12-LEAD 2022-11-06 10:26:42 Unknown, 7 [facility] ECG 12-LEAD 2022-11-06 10:24:58 Unknown, 7 [facility] ECG 12-LEAD 2022-11-06 10:23:56 Unknown, 7 [facility] ECG 12-LEAD 2022-11-06 10:23:56 Unknown, 7 [facility] POCT-GLUCOSE METER 2022-11-06 10:09:[address] [facility] IV 2022-11-06 08:46:36 Jhony Curtis [facility] CONTRAST [place] POCT-GLUCOSE METER 2022-11-06 05:34:00 Elvia [facility] BASIC METABOLIC PANEL 2022-11-06 04:38:00 Agustin Suarez [facility] Keanu Center PHOSPHORUS 2022-11-06 04:38:00 Agustin Erick [facility] Ign[place] MAGNESIUM 2022-11-06 04:38:00 [facility]in [facility] [place] CBC W/PLT COUNT & AUTO 2022-11-06 04:38:00 [facility] [place] CBC W/PLT COUNT & AUTO 2022-11-06 04:38:00 Saeid Camp [facility] POCT-GLUCOSE METER 2022-11-05 23:23:00 Elvia [facility] POCT-GLUCOSE METER 2022-11-05 17:17:00 Elvia [facility] XR ABDOMEN/KUB 1 VIEW 2022-11-05 14:12:00 Elvia [facility] POCT-GLUCOSE METER 2022-11-05 12:42:00 Elvia [facility] POCT-GLUCOSE METER 2022-11-05 06:14:00 Elvia [facility] BASIC METABOLIC PANEL 2022-11-05 03:34:00 [facility] Ign[place] PHOSPHORUS 2022-11-05 03:34:[address] [facility] [facility] [place] MAGNESIUM 2022-11-05 03:34:00 [facility]in [facility] [place] CBC W/PLT COUNT & AUTO 2022-11-05 03:34:00 [facility] CBC W/PLT COUNT & AUTO 2022-11-05 03:34:00 Saeid Camp [facility] POCT-GLUCOSE METER 2022-11-04 23:14:00 Elvia [facility] SODIUM 2022-11-04 18:28:00 Saeid Camp Manuel [facility] POCT-GLUCOSE METER 2022-11-04 16:53:00 Elvia [facility] POCT-GLUCOSE METER 2022-11-04 12:30:00 Elvia [facility] SODIUM 2022-11-04 12:17:00 KanSaeid sanders [facility] POCT-GLUCOSE METER 2022-11-04 05:41:00 Elvia [facility] BASIC METABOLIC PANEL 2022-11-04 04:12:00 Agustin Erick, [facility] Ign[place] PHOSPHORUS 2022-11-04 04:12:00 Agustin Erick, [facility] Ign[place] MAGNESIUM 2022-11-04 04:12:00 Agustin E[facility], [facility] [place] CBC W/PLT COUNT & AUTO 2022-11-04 04:12:00 [facility] CBC W/PLT COUNT & AUTO 2022-11-04 04:12:00 Saeid Camp [facility] POCT-GLUCOSE METER 2022-11-04 00:14:00 Elvia [facility] SODIUM 2022-11-03 18:20:00 Saeid Campdip [facility] POCT-GLUCOSE METER 2022-11-03 16:39:00 Elvia [facility] SODIUM 2022-11-03 12:06:00 Saeid Camp [facility] POCT-GLUCOSE METER 2022-11-03 11:53:00 Elvia [facility] XR ABDOMEN/KUB 1 VIEW 2022-11-03 11:27:11 Elvia [facility] POCT-GLUCOSE METER 2022-11-03 05:39:00 Elvia [facility] BASIC METABOLIC PANEL 2022-11-03 05:04:00 Agustin Erick, [facility] Ign[place] PHOSPHORUS 2022-11-03 05:04:00 Agustin Erick, [facility] Ign[place] MAGNESIUM 2022-11-03 05:04:00 [facility] [place] CBC W/PLT COUNT & AUTO 2022-11-03 05:04:00 [facility] CBC W/PLT COUNT & AUTO 2022-11-03 05:04:[address] [facility] POCT-GLUCOSE METER 2022-11-02 23:23:00 Elvia [facility] SODIUM 2022-11-02 18:10:00 Kantommy [facility] POCT-GLUCOSE METER 2022-11-02 17:45:00 [facility] POCT-GLUCOSE METER 2022-11-02 12:55:00 Elvia [facility] SODIUM 2022-11-02 12:29:00 Saeid Camp [facility] CT BRAIN WITHOUT IV 2022-11-02 11:03:00 Elvia [facility] POCT-GLUCOSE METER 2022-11-02 06:10:00 Bessy Shah [facility] SODIUM 2022-11-02 05:19:00 Saeid Camp [facility] BASIC METABOLIC PANEL 2022-11-02 05:19:[address] [facility] Ign[place] PHOSPHORUS 2022-11-02 05:19:00 Agustin Erick, [facility] [place] MAGNESIUM 2022-11-02 05:19:00 Agustin [facility] [place] CBC W/PLT COUNT & AUTO 2022-11-02 05:19:00 [facility] CBC W/PLT COUNT & AUTO 2022-11-02 05:19:00 [facility]id [facility] POCT-GLUCOSE METER 2022-11-02 00:07:00 Alyssa, [facility] SODIUM 2022-11-01 18:31:00 Conrado [facility] POCT-GLUCOSE METER 2022-11-01 18:27:00 Alyssa [facility] 2D ECHO W/ DOPPLER 2022-11-01 15:27:00 Conrado [facility] (CW/PW/COLOR) [place] SODIUM 2022-11-01 13:53:00 Conrado [facility] VANCOMYCIN LEVEL, TROUGH 2022-11-01 08:58:00 Yaima Mccracken [facility] MAGNESIUM 2022-11-01 08:58:00 Karan [facility] POTASSIUM 2022-11-01 08:58:00 Karan [facility] BASIC METABOLIC PANEL 2022-11-01 03:10:00 [facility] [place] PHOSPHORUS 2022-11-01 03:10:00 [facility]in [facility] [place] MAGNESIUM 2022-11-01 03:10:00 Agustin [facility] CBC W/PLT COUNT & AUTO 2022-11-01 03:10:00 Agustin [facility] CBC W/PLT COUNT & AUTO 2022-11-01 03:10:00 Conrado [facility] DIFFERENTIAL Center SODIUM 2022-10-31 23:53:00 Conrado [facility] SODIUM 2022-10-31 17:42:00 Shontommy [facility] BLOOD CULTURE 2022-10-31 15:54:00 Alyssa, [facility] SARS-COV2/INFLUENZA/RSV 2022-10-31 11:52:00 Alyssa [facility] RT-PCR Center SODIUM 2022-10-31 11:52:00 Conrado [facility] MAGNESIUM 2022-10-31 11:52:00 Nehemias Russo [facility] POCT-GLUCOSE METER 2022-10-31 11:49:00 Kathy Zepeda [facility] B-TYPE NATRIURETIC 2022-10-31 09:42:00 Saeid Camp [facility] FACTOR (BNP) Center MRSA SCREEN 2022-10-31 08:30:00 Clyde Florentino [facility] BASIC METABOLIC PANEL 2022-10-31 04:01:[address] [facility] Ign[place] PHOSPHORUS 2022-10-31 04:01:00 [facility] MAGNESIUM 2022-10-31 04:01:00 [facility] CBC W/PLT COUNT & AUTO 2022-10-31 04:01:00 [facility] DIFFERENTIAL [facility] CBC W/PLT COUNT & AUTO 2022-10-31 04:01:00 [facility] VEN[facility] DOPPLER LEGS 2022-10-31 03:37:28 Sreekanth Guevara [facility] VENOUS DOPPLER ARMS 2022-10-31 03:31:47 Sreekanth Guevara [facility] HIGH SENSITIVITY 2022-10-30 22:19:00 [facility] SODIUM 2022-10-30 22:19:00 Saeid Camp [facility] ECG 12-LEAD 2022-10-30 17:27:26 Unknown, Hl7 Doctor [facility] ECG 12-LEAD 2022-10-30 17:26:59 Sreekanth Guevara [facility] ECG 12-LEAD 2022-10-30 17:26:59 Unknown, Hl7 Doctor [facility] XR ABDOMEN/KUB 1 VIEW 2022-10-30 17:09:00 Saeid Camp [facility] PORTABLE Center LACTIC ACID, ARTERIAL 2022-10-30 16:48:00 Donnie Gonzalez [facility] HIGH SENSITIVITY 2022-10-30 16:48:00 Agustinjackie Suarez [facility] TROPONIN I [facility] SODIUM 2022-10-30 16:48:00 Kanakia, Saeid [facility] BLOOD GAS, ARTERIAL 2022-10-30 14:41:00 [facility] BLOOD GAS, ARTERIAL 2022-10-30 12:13:00 KaranHarley alexanderkh [facility] SODIUM 2022-10-30 12:12:00 Kanakia, [facility] LACTIC ACID, ARTERIAL 2022-10-30 12:12:00 Donnie Gonzalez [facility] XR CHEST 1 VIEW PORTABLE 2022-10-30 10:28:00 AgustinKelly Omal[facility] / BEDSIDE [facility] PROCALCITONIN 2022-10-30 10:14:00 Donnie Gonzalez [facility] HIGH SENSITIVITY 2022-10-30 10:14:00 Sreekanth Guevara [facility] TROPONIN I Center ECG 12-LEAD 2022-10-30 10:02:46 Unknown, Hl7 Doctor [facility] ECG 12-LEAD 2022-10-30 10:02:15 Agustinjackie Suarez [facility] ECG 12-LEAD 2022-10-30 10:02:15 Unknown, Hl7 Doctor [facility] CT BRAIN WITHOUT IV 2022-10-30 06:24:45 [facility] Erick [facility] CONTRAST [facility] BASIC METABOLIC PANEL 2022-10-30 03:19:00 Agustinjackie Suarez [facility] PHOSPHORUS 2022-10-30 03:19:00 Agustin Suarez [facility] MAGNESIUM 2022-10-30 03:19:00 [facility] CBC W/PLT COUNT & AUTO 2022-10-30 03:19:00 Agustin Suarez [facility] DIFFERENTIAL [facility] CBC W/PLT COUNT & AUTO 2022-10-30 03:19:00 Conrado Saeid Manuel [facility] DIFFERENTIAL Center SODIUM 2022-10-29 23:11:00 Kanakia, Saeid Manuel [facility] XR ABDOMEN/KUB 1 VIEW 2022-10-29 18:16:00 Sreekanth Guevara [facility] PORTABLE Center SODIUM 2022-10-29 18:14:00 ShonHumphrey sandersal Manuel [facility] CREATININE, RANDOM URINE 2022-10-29 14:52:00 Pamela Angela [facility] SODIUM 2022-10-29 12:19:00 Kanakia Saeid Manuel [facility] SODIUM, RANDOM URINE 2022-10-29 12:19:00 KanSaeid sandersdip [facility] UREA NITROGEN, RANDOM 2022-10-29 12:19:00 Humphrey Campal Manuel [facility] URINE Center OSMOLALITY, URINE 2022-10-29 12:19:00 Kantommy, [facility] OSMOLALITY, SERUM 2022-10-29 12:19:00 Kannigela, Saeid Manuel [facility] DRUG SCREEN, URINE, 2022-10-29 12:19:00 Agustinjackie Suarez [facility] COMPREHENSIVE [facility] HCG, QUANTITATIVE, 2022-10-29 12:19:00 Agustinjackie Suarez [facility] CTA CAROTID 2022-10-29 10:40:00 Jason [facility] CT BRAIN WITHOUT IV 2022-10-29 10:30:00 Jason [facility] CTA BRAIN 2022-10-29 10:20:00 Alexia [facility] RAPID DRUG SCREEN, URINE 2022-10-29 08:37:00 Saeid Camp [facility] SCREEN, URINE 2022-10-29 08:37:00 Bailey IslandDonnie [facility] BLOOD GAS, ARTERIAL 2022-10-29 07:53:00 [place] [facility] XR CHEST 1 VIEW PORTABLE 2022-10-29 04:06:00 Pitta, [facility] / BEDSIDE Center US GUIDE, VASCULAR 2022-10-29 03:47:51 [facility] MO INSERT 2022-10-29 03:46:45 [facility] CATH,ART,PERCUT,SHORTTER Center M BLOOD GAS, ARTERIAL 2022-10-29 03:46:00 [facility] W/PLT COUNT & AUTO 2022-10-29 03:45:00 [facility] COMPREHENSIVE METABOLIC 2022-10-29 03:45:00 [facility] PANEL Center MAGNESIUM 2022-10-29 03:45:00 [facility]US 2022-10-29 03:45:00 [facility] CALCIUM, IONIZED 2022-10-29 03:45:00 [facility] TSH/FREE T4 IF INDICATED 2022-10-29 03:45:00 [facility] HEMOGLOBIN A1C 2022-10-29 03:45:00 [facility] PROTHROMBIN TIME/INR 2022-10-29 03:45:00 [facility] APTT 2022-10-29 03:45:00 [facility] T4, FREE 2022-10-29 03:45:00 [facility] CBC W/PLT COUNT & AUTO 2022-10-29 03:45:00 [facility] ECG 12-LEAD 2022-10-29 03:28:02 Unknown, Hl7 Doctor [facility] ECG 12-LEAD 2022-10-29 03:27:17 PitMurray nina [facility] ECG 12-LEAD 2022-10-29 03:27:17 Unknown, Hl7 Doctor [facility] EKG-SCANNED 2022-10-29 00:00:00 Provider, Cesilia [facility] BASIC METABOLIC PANEL 2022-08-11 04:41:00 Sybil De Lunalucillegeorge [facility] MAGNESIUM 2022-08-11 04:41:00 Nicolaformerly [facility] CALCIUM, IONIZED 2022-08-11 04:41:00 [facility] PHOSPHORUS 2022-08-11 04:41:00 [facility] CBC W/PLT COUNT & AUTO 2022-08-11 04:41:00 [facility] CBC W/PLT COUNT & AUTO 2022-08-11 04:41:00 [facility] BASIC METABOLIC PANEL 2022-08-10 16:09:00 [facility] SODIUM, RANDOM URINE 2022-08-10 09:33:00 [facility] UREA NITROGEN, RANDOM 2022-08-10 09:33:00 [facility] URINE [facility] CREATININE, RANDOM URINE 2022-08-10 09:33:00 [facility] OSMOLALITY, URINE 2022-08-10 09:33:00 [facility] TSH/FREE T4 IF INDICATED 2022-08-10 09:33:00 [facility] CORTISOL 2022-08-10 09:33:00 [facility] OSMOLALITY, SERUM 2022-08-10 09:33:00 [facility] T4, FREE 2022-08-10 09:33:00 [facility] CBC (HEMOGRAM ONLY) 2022-08-10 05:06:00 [facility] BASIC METABOLIC PANEL 2022-08-10 05:06:00 [facility] 2022-08-10 05:06:00 [facility] CBC (HEMOGRAM ONLY) 2022-08-09 03:38:00 [facility] BASIC METABOLIC PANEL 2022-08-09 03:38:00 [facility] MAGNESIUM 2022-08-09 03:38:00 [facility] CBC (HEMOGRAM ONLY) 2022-08-08 04:25:00 [facility] BASIC METABOLIC PANEL 2022-08-08 04:25:00 [facility] B-TYPE NATRIURETIC 2022-08-08 04:25:00 [facility] FACTOR (BNP) [facility] STD PANEL - CT/GC RNA 2022-08-07 16:52:00 [facility] FUNGUS C[facility] + SMEAR 2022-08-07 10:22:00 Aida Alcala I [facility] ANAEROBIC CULTURE 2022-08-07 10:22:00 Aida Alcala [facility] WOUND CULTURE + GRAM 2022-08-07 10:22:00 [facility] RADIOLOGIC GUIDANCE & 2022-08-07 10:20:00 Aida Alcala [facility] INTERP/[facility] BASIC METABOLIC PANEL 2022-08-07 03:42:00 [facility] CBC (HEMOGRAM ONLY) 2022-08-07 03:41:00 [facility] CT ABDOMEN/PELVIS WITH 2022-08-06 00:22:00 Aida Alcala I [facility] IV CONTRAST [facility] SCREEN, URINE 2022-08-05 21:06:00 OnAlex daycarly [facility] CBC W/PLT COUNT & AUTO 2022-08-05 20:40:00 Aida Alcala I [facility] DIFFERENTIAL [facility] BASIC METABOLIC PANEL 2022-08-05 20:40:00 [facility] PROTHROMBIN TIME/INR 2022-08-05 20:40:00 [facility] TYPE AND SCREEN, 2022-08-05 20:40:00 Fredrick, [facility] AUTOMATED [facility] CBC W/PLT COUNT & AUTO 2022-08-05 20:40:00 Aida Alcala I [facility] DIFFERENTIAL [facility] (CELLAVISION MANUAL 2022-08-05 20:40:00 Fredrick, [facility] DIFF) [facility] TRANSTHORACIC ECHO FOR 2022-08-03 13:59:39 Unknown, Hl7 Doctor [facility] BASIC METABOLIC PANEL 2022-08-03 04:31:00 [facility] CBC (HEMOGRAM ONLY) 2022-08-03 04:31:00 [facility] CBC W/PLT COUNT & AUTO 2022-08-02 13:09:[address] [facility] BASIC METABOLIC PANEL 2022-08-02 13:09:00 [facility] CBC W/PLT COUNT & AUTO 2022-08-02 13:09:[address] [facility] (CELLAVISION MANUAL 2022-08-02 13:09:00 [facility] DIFF) [place] MYOCARDIAL PERFUSION 2022-08-01 13:31:00 [facility] SPECT, PHARM [facility] TREADMILL 2022-08-01 11:39:56 Unknown, [address] TOLERANCE(NON-NUCLEAR Center TREADMILL) ECG 12-LEAD 2022-08-01 10:14:26 Unknown, 7 [facility] ECG 12-LEAD 2022-08-01 10:14:26 Unknown, 7 [facility] ECG 12-LEAD 2022-08-01 10:13:38 Unknown, 7 [facility] ECG 12-LEAD 2022-08-01 10:13:38 Unknown, 7 [facility] CBC W/PLT COUNT & AUTO 2022-08-01 04:47:00 Leonid aHrris [facility] DIFFERENTIAL [place] BASIC METABOLIC PANEL 2022-08-01 04:47:00 Leonid Harris [facility] MAGNESIUM 2022-08-01 04:47:00 Leonid Harris [facility] PHOSPHORUS 2022-08-01 04:47:00 [facility]C 2022-08-01 04:47:00 [facility] PT/APTT 2022-08-01 04:47:00 [facility] HCG, QUANTITATIVE, 2022-08-01 04:47:00 [facility] TYPE AND SCREEN, 2022-08-01 04:47:00 Leonid Harris [facility] AUTOMATED Center CBC W/PLT COUNT & AUTO 2022-08-01 04:47:00 Leonid Harris [facility] DIFFERENTIAL [place] (CELLAVISION MANUAL 2022-08-01 04:47:00 Leonid Harris [facility] DIFF) Center 2D ECHO W/ DOPPLER 2022-07-31 15:20:04 [facility] ([facility]AD 2022-07-31 15:01:36 [facility] 2022-07-31 15:01:36 Unknown, H[facility] ENDOVAGINAL EV 2022-07-31 12:52:00 [facility] PELVIS 2022-07-31 12:52:00 [facility] DOPPLER 2022-07-31 12:52:00 [facility] BASIC METABOLIC PANEL 2022-07-31 03:09:00 Tommie Nerville Pis [facility] An [place] MAGNESIUM 2022-07-31 03:09:00 Tommie Nerville Pis [facility] PHOSPHORUS 2022-07-31 03:09:00 Yulissa Reillyille Pis [facility] CBC W/PLT COUNT & AUTO 2022-07-31 03:09:00 Tommie Nerville Pis [facility] DIFFERENTIAL An [place] LIPID PANEL 2022-07-31 03:09:00 [facility] CBC W/PLT COUNT & AUTO 2022-07-31 03:09:00 Tommie Nerville Pis [facility] DIFFERENTIAL An [place] XR CHEST 1 VIEW PORTABLE 2022-07-30 16:42:00 Dewayne Reilly P is [facility] / BEDSIDE An Center CBC W/PLT COUNT & AUTO 2022-07-30 15:38:00 Tommie Nerville Pis [facility] DIFFERENTIAL An [place] BASIC METABOLIC PANEL 2022-07-30 15:38:00 Tommie Nerville Pis [facility] PROTHROMBIN TIME/INR 2022-07-30 15:38:00 Yulissa Reillyille Pis [facility] Medical An [place] MAGNESIUM 2022-07-30 15:38:00 Tommie Nerville Pis [facility] CBC W/PLT COUNT & AUTO 2022-07-30 15:38:00 Dayron Foster [facility] Medical DIFFERENTIAL [facility] Plan of Care Planned Activity Planned Date Details Comments Source Future Scheduled 2025-07-31 Lipid panel (procedure) [facility] 00:00:00 [code = 02353118] Medical Ce nter Future Scheduled 2025-07-31 Lipid panel (procedure) [facility] 00:00:00 [code = 84714579] Medical Ce nter Future Scheduled 2025-07-31 Lipid panel (procedure) [facility] 00:00:00 [code = 45948636] Medical Ce nter Future Scheduled 2022-11-16 Influenza [...] [facility] 00:00:00 [code = 63229344] Medical Ce nter Future Scheduled 2021-03-18 DEPRESSION [...] cervix Medical C enter (procedure) [code = 999798964] Future Scheduled 1997 Screening for malignant [facility] Test 00:00:00 neoplasm of cervix Medical C enter (procedure) [code = 388044696] Future Scheduled 1997 Screening for malignant [facility] Test 00:00:00 neoplasm of cervix Medical C enter (procedure) [code = 770872920] Future Scheduled 1997 Screening for malignant [facility] Test 00:00:00 neoplasm of cervix Medical C enter (procedure) [code = 805097990] Future Scheduled 1995 DTAP/TDAP/TD VACCINES (1 [facility] [...] screening Medical Cent er (procedure) [code = 438010635] Future Scheduled [address] [facility] 00:[facility]00 virus screening Medical Cent er (procedure) [code = 719249291] Future Scheduled [address] [facility] 00:00:00 virus screening Medical Cent er (procedure) [code = 370103975] Future Scheduled [address] [facility] Test 00:00:00 Counseling and Screening Med ica Center (12+) [code = Tobacco Cessation Counseling [...] Test 00:00:00 [code = COVID-19 VACCINE Med ica Center (#1)] Future Scheduled 1976 COVID-19 VACCINE (#1[facility]00 [code = COVID-19 VACCINE [facility] Center (#1)] Future Scheduled 1976 COVID-19 VACCINE [...] colon Medical Ce nter (procedure) [code = 091820380] Future Scheduled 1976 Screening for malignant [facility] Test 00:00:00 neoplasm of colon Medical Ce nter (procedure) [code = 144362651] Future Scheduled 1976 Screening for malignant [facility] Test 00:00:00 neoplasm of colon Medical Ce nter (procedure) [code = 561504495] Future Scheduled 1976 Screening for malignant [facility] 00:00:00 neoplasm of colon Medical Ce nter (procedure) [code = 213180820] Future Scheduled 1976 Sigmoidoscopy [code = [facility] S[facility]oidoscopy] Medical [facility] r Future Scheduled 1976 CT Colonography (combo) [facility] 00:00:00 [code = CT Colonography [facility] (combo)] Future Scheduled 1976 Screening for malignant [facility] 00:00:00 neoplasm of colon Medical Ce nter (procedure) [code = 741182306] Future Scheduled 1976 Screening for malignant [facility] Test 00:00:00 neoplasm of colon Medical Ce nter (procedure) [code = 337157792] Future Scheduled 1976 Screening for malignant [facility] 00:00:00 neoplasm of colon Medical Ce nter (procedure) [code = 298756021] Future Scheduled 1976 Screening for malignant [facility] 00:00:00 neoplasm of colon Medical Ce nter (procedure) [code = 167425715] Future Scheduled 1976 Sigmoidoscopy [facility]code = [facility]oscopy] Medical Cente r Future Scheduled 1976 CT Colonography (combo) [facility] 00:00:00 [code = CT [facility] ([facility]bo)] Future Scheduled 1976 Screening for malignant [facility] 00:00:00 neoplasm of colon Medical Ce nter (procedure) [code = 904828621] Future Scheduled 1976 Screening for malignant [facility] Test 00:00:00 neoplasm of colon Medical Ce nter (procedure) [code = 938817506] Future Scheduled 1976 Screening for malignant [facility] 00:00:00 neoplasm of colon Medical Ce nter (procedure) [code = 179926298] Future Scheduled 1976 Screening for malignant [facility] 00:00:00 neoplasm of colon Medical Ce nter (procedure) [code = 403634923] Future Scheduled 1976 Sigmoidoscopy [facility]code = [facility]oscopy] Medical Cente r Future Scheduled 1976 CT Colonography (combo) [facility] 00:00:00 [code = CT Colonography [facility] (combo)] Future Scheduled 1976 Screening for malignant [facility] 00:00:00 neoplasm of colon Medical Ce nter (procedure) [code = 110953691] Future Scheduled 1976 Screening for malignant [facility] 00:00:00 neoplasm of colon Medical Ce nter (procedure) [code = 791186348] Future Scheduled 1976 Screening for malignant [facility] 00:00:00 neoplasm of colon Medical Ce nter (procedure) [code = 005197590] Future Scheduled 1976 Screening for malignant [facility] 00:00:00 neoplasm of colon Medical Ce nter (procedure) [code = 899784231] Future Scheduled 1976 Sigmoidoscopy [facility]code [facility]oscopy] Medical Cente r Encounters Start End Encounter Admission Attending Care Care Encounter Source Date/Time Date/Time Type Type Clinicians Facility Department ID 2022-11-07 Inpatient ER JUAN JMIR [facility] [id number] [facility] 19:39:43 2022-11-06 Inpatient ER JUJU TAI [facility] [id number] [facility]H 11:21:11 2022-11-06 Inpatient ER JUJU TAI [facility]H [id number] SLEH 10:39:32 2022-11-05 Inpatient ER JUJU TAI [facility]H SLEH [id number] SLEH 13:31:19 2022-11-03 Inpatient ER JUJU TAI SLEH SLEH [id number] SLEH 10:45:25 2022-11-01 Inpatient ER SLEH SLEH [id number] SLEH 09:28:17 2022-11-01 Inpatient ER SLEH SLEH [id number] SLEH 09:11:47 2022-10-31 Inpatient ER BERSHAD, SLEH [facility]H [id number] SLEH 00:51:03 KATHY 2022-10-31 Inpatient ER BERSHAD, SLEH SLEH [id number] SLEH 00:50:54 KTAHY 2022-10-30 Inpatient ER SLEH SLEH [id number] SLEH 15:54:13 2022-10-30 Inpatient ER BERSHAD, SLEH SLEH [id number] SLEH 09:14:25 KATHY 2022-10-30 Inpatient ER BERSHAD, SLEH SLEH [id number] SLEH 05:26:11 KATHY 2022-10-29 Inpatient ER BERSHAD, SLEH SLEH [id number] SLEH 17:09:25 KATHY 2022-10-29 Inpatient ER PITTARD, SLEH SLEH [id number] SLEH 03:50:03 MURRAY 2023-01-31 2023-01-31 Outpatient SFA SFA [id number] Martin 15:10:33 15:10:33 1116 F Tello 2023-01-29 2023-01-29 CARLOS Caruso 1.2.840.114 [id number] Univers 00:00:00 00:00:00 (Out) Cardiology HEALTH 350.1.13.10 ity of - Clear CLEAR 4.2.7.2.686 David WANG [id number] [place] [address] [address] OFFICE [facility] 2023-01-24 2023-01-24 Orders Doctor YAIMA 1.2.840.114 [id number] Univers 00:00:00 00:00:00 Only Unassigned, VLAD 350.1.13.10 [facility] 4.2.7.2.686 Anthony as [phone] [facility] [address] 2023-01-22 2023-01-22 Outpatient SFA SFA [id number] Martin 08:26:51 08:26:51 1107 [place] 2022-12-27 2022-12-27 Outpatient SFA [facility] [id number] Martin 10:33:43 10:33:43 1012 F [place] 2022-11-29 2022-11-29 Transition MONSE Sotelo 1.2.840.114 [id number] Univers 00:00:00 00:00:00 of Care Desi RDEDY 350.1.13.10 it[place] of [place] [phone] [facility] [address] 2022-11-24 2022-11-28 [facility] 1.2.840.114 [id number] Univers 11:15:00 21:45:00 Encounter Ryne Yoder 350.1.13.1 [address] [facility] 4.2.7.2.686 [place] [id number] [facility] [address] 2022-11-24 2022-11-28 Inpatient U [facility] [id number] Univers 11:15:00 21:45:[address] [facility] 2022-11-24 2022-11-28 Inpatient U [facility] [id number] Univers 11:15:00 21:45:[address] [facility] 2022-10-29 2022-11-13 [facility] Santiago Garcia [facility] [id number] [facility] 02:56:00 21:30:00 Encounter Kathy Zepeda Najamus M edical Khan, Maria Cent er Damani, Rahul Hareshkumar Ali, Hiba Tahir Merchant, Omar 2022-10-29 2022-11-13 Inpatient ER , SLE Neurology [id number] SLEH 02:56:00 21:30:00 GOYO 2022-11-06 2022-11-06 Inpatient ER SLEH SLEH [id number] SLEH 08:32:27 00:00:00 2022-11-06 2022-11-06 Orders [facility] [id number] 00:00:00 00:00:00 [facility] 2022-11-05 2022-11-05 Outpatient SLEH SLEH [id number] SLEH 00:00:00 00:00:00 2022-11-05 2022-11-05 Outpatient SLEH SLEH [id number] SLEH 00:00:00 00:00:00 2022-11-02 2022-11-02 Inpatient ER JUJU TAI SLEH SLEH [id number] SLEH 10:58:08 00:00:00 2022-10-29 2022-10-29 Inpatient ER PITTARD, SLEH SLEH [id number] SLEH 10:12:32 23:59:00 MURRAY 2022-10-29 2022-10-29 [facility] [id number] [facility] 09:35:00 23:59:00 [facility] 2022-10-29 Inpatient ER PITTARD, SLEH SLEH [id number] SLEH 10:12:49 00:00:00 MURRAY 2022-10-29 2022-10-29 Inpatient ER PITTARD, SLEH SLEH [id number] SLEH 10:12:41 00:00:00 MURRAY 2022-10-29 2022-10-29 Orders [facility] [id number] 00:00:00 00:00:00 [facility] 2022-08-12 2022-08-12 Telephone Gregory [facility] [id number] 00:00:00 00:00:00 [facility] 2022-08-05 2022-08-11 Hospital ER Popeye Mcneal [facility] [id number] 18:09:00 14:47:00 Encounter [facility] [place] 2022-08-05 2022-08-11 Inpatient ER [facility] Gynecology [id number] SLE 18:09:00 14:47:00 KRISTIN 2022-08-05 2022-08-05 Travel [facility] [id number] [facility] 00:00[facility]00 00:00[facility]00 [facility] 2022-07-31 2022-08-03 [facility] UR Les Al [facility] [id number] 04:37:00 20:00:00 Encounter Nena Waller [facility] Leonid Harris [place] 2022-07-31 2022-08-03 Inpatient [facility] Med [id number] [facility] 04:37:00 20:00:00 [facility] 2022-07-30 2022-07-31 Inpatient ER [facility] Gynecology [id number] [facility] 14:07:00 04:04:00 DAYRON 2022-07-30 2022-07-31 [facility] ER [facility], [facility] [id number] 14:07:00 04:04:00 Encounter Dayron [facility] 2022-07-31 2022-07-31 Orders [facility] [id number] 00:00:00 00:00:00 Only [facility] 2022-07-30 2022-07-30 Travel [facility] [id number] [facility] 00:00:00 00:00:00 [facility] Results Test Description Test Time Test Comments Results Result Comments Source HEPATIC FUNCTION PANEL (63867) (ALB,T.PRO,BILI 2022-11-26 13 :08:17 T,BU/BC,ALT,AST,ALK PHOS) Test Item Value Reference Range Interpretation Comme nts TOTAL BILI (test code = 8428334125) 0.9 mg/dL 0.1-1.1 BILI UNCON (test code = 2409665809) 0.6 mg/dL 0.1-1.1 BILI CONJ (test code = 5844002305) 0.0 mg/dL 0.0-0.3 T PROTEIN (test code = 1086514398) 6.5 g/dL 6.3-8.2 ALBUMIN (test code = 4856944700) 4.0 g/dL 3.5-5.0 ALK PHOS (test code = 7508544553) 527 U/L 34-122 H ALTv (test code = 1742-6) 116 U/L 5-35 H AST(SGOT) (test code = 5830431442) 76 U/L 13-40 H Lab Interpretation (test code = 07713-5) Abnormal [facility] METABOLIC PANEL (NA, K, CL, CO2, GLUCOSE, BUN, CREATININE, CA)2022-11-26 10:08:01 Test Item Value Reference Range Interpretation Comments NA (test code = 136 mmol/L 135-145 7207435428) K (test code = 4.1 mmol/L 3.5-5.0 4219511512) CL (test code = 100 mmol/L 98-108 9702373718) CO2 TOTAL (test code 28 mmol/L 23-31 = 4672984051) AGAP (test code = 8 2-16 6231989668) BUN (test code = 17 mg/dL 7-23 9431392043) GLUCOSE (test code = 87 mg/dL 70-110 0691198979) CREATININE (test code 1.00 mg/dL 0.50-1.04 = 9305956843) CALCIUM (test code = 9.3 mg/dL 8.6-10.6 7508722491) eGFR (test code = 59.7 mL/min/1.73m2 9210367750) SUE (test code = SUE) Association of [...] or urine or abnormalities in imaging tests). [facility]01 Test Item Value Reference Range Interpretation Comments MAGNESIUM (test code = 0845547461) 1.8 mg/dL 1.7-2.4 Lab Interpretation (test code = Normal 66880-0) [facility] WITH [id number] 09:36:22 Test Item Value Reference Range Interpretation [...] RDW-SD (test code = 42.7 fL 39.0-49.9 96236-1) RDW-CV (test code = 12.5 % 12.0-15.5 788-0) PLT (test code = 151 See_Comment L [Automated 777-3) message] The sy stem which generated this result transmitted reference range : 166 - 358 10*3/ ?L. The reference r elizabeth was not used to interpret this result as normal/abnormal . MPV (test code = 9.4 fL 9.5-12.9 L 14016-0) NRBC/100 WBC (test 0.0 See_Comment [Automat ed code = 9687928672) message] The system which generated this result transmitted reference range : 0.0 - 10.0 /100 WBCs. The refer ence range was not u sed to interpret th is result as normal/abnormal . NRBC x10^3 (test code See_Comment [Auto mated = 2570781782) message] The s ystem which generated this result transmitted reference range : 10*3/?L. The reference range was not used to interpret this result as normal/abnormal . GRAN MAT (NEUT) % 68.0 % (test code = 770-8) IMM GRAN % (test code 0.00 % = 2930578552) LYMPH % (test code = 17.7 % 736-9) MONO % (test code = 9.1 % 5905-5) EOS % (test code = 4.5 % 713-8) BASO % (test code = 0.7 % 706-2) GRAN MAT x10^3(ANC) 2.84 10*3/uL 1.88-7.09 (test code = 9163469294) IMM GRAN x10^3 (test 0.00-0.06 code = 4231880598) LYMPH x10^3 (test code 0.74 10*3/uL 1.32-3.29 L = 731-0) MONO x10^3 (test code 0.38 10*3/uL 0.33-0.92 = 742-7) EOS x10^3 (test code = 0.19 10*3/uL 0.03-0.39 711-2) BASO x10^3 (test code 0.03 10*3/uL 0.01-0.07 = 704-7) Lab Interpretation Abnormal (test code = 97410-0) [facility] METABOLIC PANEL (NA, K, CL, CO2, GLUCOSE, BUN, CREATININE, CA)2022-11-25 09:47:18 Test Item Value Reference Range Interpretation Comments NA (test code = 135 mmol/L 135-145 1392596389) K (test code = 5.0 mmol/L 3.5-5.0 Slight 6694817531) hemolysis CL (test code = 100 mmol/L 98-108 1757803864) CO2 TOTAL (test code 28 mmol/L 23-31 = 1733645436) AGAP (test code = 7 2-16 6131845990) BUN (test code = 20 mg/dL 7-23 Slight 7521721481) hemolysis GLUCOSE (test code = 109 mg/dL 70-110 7073900547) CREATININE (test code 1.20 mg/dL 0.50-1.04 H = 5557040737) CALCIUM (test code = 9.2 mg/dL 8.6-10.6 0984142056) eGFR (test code = 48.4 mL/min/1.73m2 7411772503) SUE (test code = SUE) Association of [...] tests). Lab Interpretation Abnormal (test code = 65487-8) [facility] 09:42:55 Test Item Value Reference Range Interpretation Comments MAGNESIUM (test code = 1973229065) 3.1 mg/dL 1.7-2.4 H Lab Interpretation (test code = Abnormal 31328-7) [facility] VIRUS ANTIBODY [id number] 23:52:42 Test Item Value Reference Range Interpretation Comments HAVM 0.05 Semi-Quantitative (test code = 14469-3) SUE (test code = HAVAb IgM Interpretative SUE) Information: Reactive greater than or equal to 1.2 Biotin has been reported to cause a negative bias, interpret results relative to patient's use of biotin. [facility] [id number] 23:35:43 Test Item Value Reference Range Interpretation Comments TROPONIN I (test code = 0.911 ng/mL <=0.034 H 5689379071) SUE (test code = SUE) Reference (Normal) [...] biotin. Lab Interpretation Abnormal (test code = 04289-7) [facility] AG-AB WITH [id number] 21:57:58 Test Item Value Reference Range Interpretation Comments HIV 0.12 Negative Semi-quantitative (test code = 33545-4) SUE (test code = Non-reactive for HIV-1 SUE) antigen and HIV-1/HIV-2 antibodies. ?No laboratory evidence of HIV infection. ?Repeat in 2-4 weeks if acute HIV infection is suspected. [facility] [id number] 21:57:58 Test Item Value Reference Range Interpretation Comments HCV Ab (test code = 68037-3) Negative HCV Semi-Quantitative (test code = 0.01 58737-4) [facility] SURFACE [id number] 21:57:58 Test Item Value Reference Range Interpretation Comments HBsAB (test code = Negative 9037777031) HBsAb 0.00 mIU/mL Semi-Quantitative (test code = 5948243478) SUE (test code = Interpretation: SUE) ?Hepatitis B Surface Antibody ? Negative - Patient is considered to be not immune to infection with HBV. ? ? Positive - Anti-HBs detected at greater than or equal to 12 mIU/mL. ?Patient is considered to be immune to infection with HBV. ? [facility] [id number] 21:40:35 Test Item Value Reference Range Interpretation Comments HBsAg Semi-Quantitative (test code = 0.14 Negative 5195-3) [facility]GLOB[facility] (A1C)2022-11-24 18:18:35 Test Item Value Reference Range Interpretation Comments HGB A1C (test code = 4.6 % 4.0-5.7 4548-4) SUE (test code = SUE) Reference RangesNormal: <5.7%Prediabetes: 5.7 - 6.4%Diabetes: > 6.5% Lab Interpretation (test Normal code = 19744-3) [facility] Hospital[facility]YRO[facility] STIMULATING [id number] 17:58:24 Test Item Value Reference Range Interpretation Comments TSH (test code = 2.03 See_Comment [Automated message] 8879682305) The system [employer] generated this result transmitted ref erence range: 0.45 - 4 .70 mIU/L. The refe rence range was not u sed to interpret this result as normal/abnor mal. Lab Interpretation (test Normal code = 38781-3) [facility] [id number] 17:39:48 Test Item Value Reference Range Interpretation Comments TROPONIN I (test code = 1.340 ng/mL <=0.034 H 4716672582) SUE (test code = SUE) Reference (Normal) [...] biotin. Lab Interpretation Abnormal (test code = 96446-3) [facility]MINAL [id number] 17:39:48 Test Item Value Reference Range Interpretation Comments NT-proBNP (test code = 2520 pg/mL <=125 H 47094-2) SUE (test code = SUE) Positive: Heart Failure Likely Lab Interpretation (test Abnormal code = 33190-3) [facility] (NA, K, CL, CO2, GLUCOSE, BUN, CREATININE, CA)2022-11-24 17:30:04 Test Item Value Reference Range Interpretation Comments NA (test code = 135 mmol/L 135-145 0164431693) K (test code = 3.9 mmol/L 3.5-5.0 8177926993) CL (test code = 97 mmol/L 98-108 L 5496413731) CO2 TOTAL (test code = 27 mmol/L 23-31 9246356160) AGAP (test code = 11 2-16 0274587324) BUN (test code = 23 mg/dL 7-23 7501175235) GLUCOSE (test code = 163 mg/dL 70-110 H 7406309815) CREATININE (test code = 1.40 mg/dL 0.50-1.04 H 6682460346) CALCIUM (test code = 9.4 mg/dL 8.6-10.6 4300595976) eGFR (test code = 40.5 mL/min/1.73m2 4312884456) SUE (test code = SUE) Association of [...] tests). Lab Interpretation Abnormal (test code = 68319-8) [facility] (50157) (ALB,T.PRO,BILI T,BU/BC,ALT,AST,ALK PHOS)2022-11-24 17:30:04 Test Item Value Reference Range Interpretation Comments TOTAL BILI (test code = 4858062978) 1.0 mg/dL 0.1-1.1 BILI UNCON (test code = 1698913842) 0.6 mg/dL 0.1-1.1 BILI CONJ (test code = 4840575282) 0.0 mg/dL 0.0-0.3 T PROTEIN (test code = 8333445069) 6.8 g/dL 6.3-8.2 ALBUMIN (test code = 1213394171) 4.1 g/dL 3.5-5.0 ALK PHOS (test code = 7318055745) 746 U/L 34-122 H ALTv (test code = 1742-6) 183 U/L 5-35 H AST(SGOT) (test code = 0365121656) 196 U/L 13-40 H Lab Interpretation (test code = Abnormal 78878-4) [facility] (41471)(TOTAL CHOLESTEROL, TRIGLYCERIDES, HDL)2022-11-24 17:30:04 Test Item Value Reference Range Interpretation Comments CHOL (test code = 3186940006) 113 mg/dL 120-200 L HDL (test code = 8762521363) 62 mg/dL >=50 HDLC RATIO (test code = 2812935805) 1.8 <=4.5 TRIG (test code = 6594946642) 71 mg/dL 30-170 LDL CHOL (test code = 21140-3) 37 mg/dL <=160 VLDL (test code = 2281784190) 14 mg/dL 5-60 Lab Interpretation (test code = Abnormal 93207-8) [facility] WITH [id number] 16:55:22 Test Item Value Reference Range Interpretation Comments WBC (test code = 6.05 See_Comment [Automated 5250-2) message] The sy stem which generated this result transmitted reference range : 4.30 - 11.10 10*3/?L. The reference range was not used to interpret this result as normal/abnormal . RBC (test code = 3.21 See_Comment L [Automated 546-8) message] The sy stem which generated this [...] RDW-SD (test code = 44.3 fL 39.0-49.9 47247-8) RDW-CV (test code = 12.9 % 12.0-15.5 788-0) PLT (test code = 203 See_Comment [Automated 777-3) message] The sy stem which generated this result transmitted reference range : 166 - 358 10*3/ ?L. The reference r elizabeth was not used to interpret this result as normal/abnormal . MPV (test code = 9.9 fL 9.5-12.9 97060-4) NRBC/100 WBC (test 0.0 See_Comment [Automat ed code = 5826315233) message] The system which generated this result transmitted reference range : 0.0 - 10.0 /100 WBCs. The refer ence range was not u sed to interpret th is result as normal/abnormal . NRBC x10^3 (test code See_Comment [Auto mated = 0305912661) message] The s ystem which generated this result transmitted reference range : 10*3/?L. The reference range was not used to interpret this result as normal/abnormal . GRAN MAT (NEUT) % 59.6 % (test code = 770-8) IMM GRAN % (test code 0.20 % = 1131802869) LYMPH % (test code = 28.3 % 736-9) MONO % (test code = 9.1 % 5905-5) EOS % (test code = 2.5 % 713-8) BASO % (test code = 0.3 % 706-2) GRAN MAT x10^3(ANC) 3.61 10*3/uL 1.88-7.09 (test code = 7315004894) IMM GRAN x10^3 (test 0.00-0.06 code = 5969423783) LYMPH x10^3 (test code 1.71 10*3/uL 1.32-3.29 = 731-0) MONO x10^3 (test code 0.55 10*3/uL 0.33-0.92 = 742-7) EOS x10^3 (test code = 0.15 10*3/uL 0.03-0.39 711-2) ELMOO x10^3 (test code 0.01-0.07 = 704-7) Lab Interpretation Abnormal (test code = 07156-7) General acute hospital-Glucose [id number] 12:43:54 Test Item Value Reference Range Interpretation Comments POC-Glucose Meter (test 138 mg/dL 70-110 H : TE STED AT [facility] code = 1538) 6720 [facility], 770 30: Hearth Feeder/Techni smiley ID = [id number] for FERMIN MINOR [place] Lab Interpretation (test Abnormal code = 06459-1) [facility]-Glucose [id number] 12:43:54 Test Item Value Reference Range Interpretation Comments POC-Glucose Meter (test 138 mg/dL 70-110 H : TE STED AT [facility] code = 1538) 67[address] [facility], 770 30: Hearth Feeder/Techni smiley ID = [id number] for FERMIN MINOR [place] Lab Interpretation (test Abnormal code = 29939-0) [facility]-GLUCOSE [id number] 12:43:54 Test Item Value Reference Range Interpretation Comments POC-GLUCOSE METER 138 mg/dL 70-110 H : TESTED A T [facility] 6720 (BEAKER) ([facility] = [facility], 1538) 15303: Hearth Feeder/Techni smiley ID = [id number] for TRACEY MUNADragan MANDA [id number] 06:54:19 Test Item Value Reference Range Interpretation Comments PHOSPHORUS (BEAKER) (test code = 4.2 mg/dL 2.3-4.7 604) Hearth Feeder ID - [id number] 06:54:18 Test Item Value Reference Range Interpretation Comments MAGNESIUM (BEAKER) (test code = 1.7 mg/dL 1.6-2.6 627) Hearth Feeder ID - ADMINCBC W/PLT COUNT & AUTO [id number] 06:00:54 Test Item Value Reference Range Interpretation [...] PERCENT (BEAKER) (test code = 2801) POCT-GLUCOSE [id number] 21:38:27 Test Item Value Reference Range Interpretation Comments POC-GLUCOSE METER 88 mg/dL 70-110 : TESTED A T [facility] 6720 (BEAKER) (test code = [facility], 153) 05199: Hearth Feeder/Techni smiley ID = [id number] for NADEGE MORALES POCT-GLUCOSE [id number] 18:19:26 Test Item Value Reference Range Interpretation Comments POC-GLUCOSE METER 93 mg/dL 70-110 : TESTED A T [facility] 6720 (BEAKER) (test code = [facility], 1538) 06237: Hearth Feeder/Techni smiley ID = [id number] for MANDA PANCHAL POCT-GLUCOSE [id number] 13:13:27 Test Item Value Reference Range Interpretation Comments POC-GLUCOSE METER 91 mg/dL 70-110 : TESTED A T [facility] 6720 (BEAKER) (test code = [facility], 153) 54887: Hearth Feeder/Techni smiley ID = [id number] for MANDA PANCHAL BLOOD [id number] 12:00:51 Test Item Value Reference Range Interpretation Comments CULTURE (BEAKER) (test No growth in 5 days code = 1095) BLOOD [id number] 12:00:51 Test Item Value Reference Range Interpretation Comments CULTURE (BEAKER) (test No growth in 5 days code = 1095) The specimen volume collected for this blood culture was below the optimum (10 mL per bottle or 20 mL total). Use of lower volumes may adversely affect recovery and/or detection times of some organisms.POCT-GLUCOSE [id number] 06:46:01 Test Item Value Reference Range Interpretation Comments POC-GLUCOSE METER 102 mg/dL 70-110 : TESTED A T [facility] 6720 (BEAKER) (test code = [facility], 153) 36121: Hearth Feeder/Techni smiley ID = [id number] for Teresa Rose [id number] 05:48:23 Test Item Value Reference Range Interpretation Comments MAGNESIUM (BEAKER) (test code = 1.8 mg/dL 1.6-2.6 627) Hearth Feeder ID - [id number] 05:48:23 Test Item Value Reference Range Interpretation Comments PHOSPHORUS (BEAKER) (test code = 3.6 mg/dL 2.3-4.7 604) Hearth Feeder ID - MARCOBASIC METABOLIC [id number] 05:48:22 Test Item Value Reference Range Interpretation [...] not appl icable for dialysis patien ts Hearth Feeder ID - MARCOCBC W/PLT COUNT & AUTO [id number] 05:10:47 Test Item Value Reference Range Interpretation [...] PERCENT (BEAKER) (test code = 2801) POCT-GLUCOSE [id number] 23:44:35 Test Item Value Reference Range Interpretation Comments POC-GLUCOSE METER 93 mg/dL 70-110 : TESTED A T [facility] 6720 ([employer]) (test code = [place], 1538) [address]: Hearth Feeder/Techni smiley ID = [id number] for Teresa Camejo POCT-GLUCOSE [id number] 17:35:54 Test Item Value Reference Range Interpretation Comments POC-GLUCOSE METER 108 mg/dL 70-110 : TESTED A T [facility] 6720 ([employer]) (test code = [facility], 1538) 83464: Hearth Feeder/Techni smiley ID = [id number] for Donna Rolle BLOOD [id number] 17:01:46 Test Item Value Reference Range Interpretation Comments CULTURE (BEAKER) (test No growth in 5 days code = 1095) The specimen volume collected for this blood culture was below the optimum (10 mL per bottle or 20 mL total). Use of lower volumes may adversely affect recovery and/or detection times of some organisms.POCT-GLUCOSE [id number] 13:41:35 Test Item Value Reference Range Interpretation Comments POC-GLUCOSE METER 99 mg/dL 70-110 : TESTED Oscar [facility] 6720 (BEAKER) (test code = [facility], 1538) 56994: Hearth Feeder/Techni smiley ID = [id number] for Donna Baxter BLOOD [id number] 13:01:43 Test Item Value Reference Range Interpretation Comments CULTURE (BEAKER) (test No growth in 5 days code = 1095) POCT-GLUCOSE [id number] 07:21:17 Test Item Value Reference Range Interpretation Comments POC-GLUCOSE METER 110 mg/dL 70-110 : TESTED Osacr Art [facility] 6720 (BEAKER) (test code = [facility], 1538) 23559: Hearth Feeder/Techni smiley ID = [id number] for Teresa Rose BASIC METABOLIC [id number] 05:31:26 Test Item Value Reference Range Interpretation [...] not appl icable for dialysis patien ts Hearth Feeder ID - [id number] 05:31:26 Test Item Value Reference Range Interpretation Comments MAGNESIUM (BEAKER) (test code = 2.0 mg/dL 1.6-2.6 627) Hearth Feeder ID - [id number] 05:31:26 Test Item Value Reference Range Interpretation Comments PHOSPHORUS (BEAKER) (test code = 3.6 mg/dL 2.3-4.7 604) Hearth Feeder ID - MARCOCBC W/PLT COUNT & AUTO [id number] 04:56:52 Test Item Value Reference Range Interpretation [...] PERCENT (BEAKER) (test code = 2801) POCT-GLUCOSE [id number] 00:26:59 Test Item Value Reference Range Interpretation Comments POC-GLUCOSE METER 135 mg/dL 70-110 H : TESTED A T [facility] 6720 (BEAKER) (test code = [facility], 153) 15671: Hearth Feeder/Techni smiley ID = [id number] for Teresa Rose POCT-GLUCOSE [id number] 17:22:27 Test Item Value Reference Range Interpretation Comments POC-GLUCOSE METER 127 mg/dL 70-110 H : TESTED A T [facility] 6720 (BEAKER) (test code = [facility], 153) 71990: Hearth Feeder/Techni smiley ID = [id number] for Um eh, [place]umb[place] POCT-GLUCOSE [id number] 17:20:21 Test Item Value Reference Range Interpretation Comments POC-GLUCOSE METER 23 mg/dL 70-110 LL : TESTED A T [facility] 6720 (BEAKER) (test code = [facility], 1538) 07031: Hearth Feeder/Techni smiley ID = [id number] for Jorge Luis Baez POCT-GLUCOSE [id number] 12:34:42 Test Item Value Reference Range Interpretation Comments POC-GLUCOSE METER 129 mg/dL 70-110 H : TESTED A T [facility] 6720 (BEAKER) (test code = [facility] Dunn [facility], 1538) 74651: Hearth Feeder/Techni smiley ID = [id number] for Robert ehHerbertu [id number] 08:08:41 Test Item Value Reference Range Interpretation Comments MAGNESIUM (BEAKER) (test code = 1.9 mg/dL 1.6-2.6 627) Hearth Feeder ID - [id number] 08:08:41 Test Item Value Reference Range Interpretation Comments PHOSPHORUS (BEAKER) (test code = 3.5 mg/dL 2.3-4.7 604) Hearth Feeder ID - ADMINBASIC METABOLIC [id number] 08:08:40 Test Item Value Reference Range Interpretation [...] not appl icable for dialysis patien ts [employer]earth Feeder ID - ADMINPOCT-GLUCOSE [id number] 07:08:26 Test Item Value Reference Range Interpretation Comments POC-GLUCOSE METER 119 mg/dL 70-110 H : TESTED A T [facility] 6720 (BEAKER) (test code = [place], 1538) [address]: Hearth Feeder/Techni smiley ID = [id number] for Teresa Rose CBC W/PLT COUNT & AUTO [id number] 06:25:01 Test Item Value Reference Range Interpretation [...] 417) IMMATURE GRANULOCYTES-RELATIVE 0.20 % 0.00-1.00 PERCENT (AKER) (test code = 2801) POCT-GLUCOSE [id number] 23:32:08 Test Item Value Reference Range Interpretation Comments POC-GLUCOSE METER 97 mg/dL 70-110 : TESTED A T [facility] 67[address] ([facility]) (test code = [facility], [facility]) 86058: Hearth Feeder/Techni smiley ID = [id number] for Teresa Camejo POCT-GLUCOSE [id number] 17:52:25 Test Item Value Reference Range Interpretation Comments POC-GLUCOSE METER 121 mg/dL 70-110 H : TESTED A T [facility] 67[address] ([facility]) (test code = [facility], 153) 31822: Hearth Feeder/Techni smiley ID = [id number] for An derCandace causeya POCT-GLUCOSE [id number] 12:24:17 Test Item Value Reference Range Interpretation Comments POC-GLUCOSE METER 106 mg/dL 70-110 : TESTED A T [facility] 67[address] ([facility]) (test code = [facility], 153) 26281: Hearth Feeder/Techni smiley ID = [id number] for An dermarium, Donna VANCOMYCIN LEVEL, [id number] 10:00:44 Test Item Value Reference Range Interpretation Comments VANCOMYCIN TROUGH ([facility]) (test 35.0 ug/mL 10.0-20.0 HH code = 522) Hearth Feeder ID - ADMINPOCT-GLUCOSE [id number] 06:04:34 Test Item Value Reference Range Interpretation Comments POC-GLUCOSE METER 98 mg/dL 70-110 : TESTED A T [facility] 6720 (BEAKER) (test code = [place], 1538) 956[address]: Hearth Feeder/Techni smiley ID = [id number] for Andi Warren [id number] 04:34:22 Test Item Value Reference Range Interpretation Comments PHOSPHORUS (BEAKER) (test code = 4.3 mg/dL 2.3-4.7 604) Hearth Feeder ID - mmBASIC METABOLIC [id number] 04:34:21 Test Item Value Reference Range Interpretation [...] not appl icable for dialysis patien ts [employer]earth Feeder ID - [id number] 04:34:21 Test Item Value Reference Range Interpretation Comments MAGNESIUM (BEAKER) (test code = 2.0 mg/dL 1.6-2.6 627) Hearth Feeder ID - mmCBC W/PLT COUNT & AUTO [id number] 04:15:17 Test Item Value Reference Range Interpretation [...] PERCENT (BEAKER) (test code = 2801) POCT-GLUCOSE [id number] 00:10:22 Test Item Value Reference Range Interpretation Comments POC-GLUCOSE METER 102 mg/dL 70-110 : TESTED A T [facility] 6720 (BEAKER) ([facility] 81055: Hearth Feeder/Techni smiley ID = [id number] for Andi Warren BASIC METABOLIC [id number] 19:00:42 Test Item Value Reference Range Interpretation [...] i s not applicable for dialysis patients Hearth Feeder ID - JSPOCT-GLUCOSE [id number] 17:28:38 Test Item Value Reference Range Interpretation Comments POC-GLUCOSE METER 122 mg/dL 70-110 H : TESTED A T [facility] 6720 (BEAKER) (test code = [facility] Dunn [facility], 1538) 15770: Hearth Feeder/Techni smiley ID = [id number] for An Donna lucas POCT-GLUCOSE [id number] 12:36:44 Test Item Value Reference Range Interpretation Comments POC-GLUCOSE METER 110 mg/dL 70-110 : TESTED A T [facility] 6720 (BEAKER) (test code = [facility], 1538) 71157: Hearth Feeder/Techni smiley ID = [id number] for An Donna lucas [id number] 06:20:37 Test Item Value Reference Range Interpretation Comments MAGNESIUM (BEAKER) (test code = 2.2 mg/dL 1.6-2.6 627) Hearth Feeder ID - [id number] 06:20:37 Test Item Value Reference Range Interpretation Comments PHOSPHORUS (BEAKER) (test code = 3.9 mg/dL 2.3-4.7 604) Hearth Feeder ID - ADMINBASIC METABOLIC [id number] 06:20:36 Test Item Value Reference Range Interpretation [...] is not appl icable for dialysis patien emani [employer]earth Feeder ID - ADMINPOCT-GLUCOSE [id number] 06:09:53 Test Item Value Reference Range Interpretation Comments POC-GLUCOSE METER 69 mg/dL 70-110 L : TESTED Oscar T [facility] [address] (BEAKER) (test code = [place], 1538) 31552: Hearth Feeder/Techni smiley ID = [id number] for Andi Warren CBC W/PLT COUNT & AUTO [id number] 05:15:05 Test Item Value Reference Range Interpretation [...] = 2801) XR abdomen / KUB 1 [id number] 21:59:17EXAM/TECHNIQUE: XR ABDOMEN/KUB 1 VIEW PORTABLE INDICATION: Confirm corpak placement COMPARISON: 11/05/2022. FINDINGS: Feeding tube terminates in the distal stomach. No dilated loops of largesmall bowel.No acute osseous process. Lung bases are clear.[facility] XR ABDOMEN/KUB 1 VIEW [id number] 21:59:17 [facility] 1975 Sex: FEXAM/TECHNIQUE: XR ABDOMEN/KUB 1 VIEW PORTABLEINDICATION: Confirm corpak placementCOMPARISON: 11/05/2022.FINDINGS: Feeding tube terminates in the distal stomach. No dilated loops of largesmall bowel. No acute osseous process. Lung bases are clear.IMPRESSION:Feeding tube terminates in the distal stomach.Electronically Signed By: Carlos Preciado11/07/2022 22:01 CDTWorkstation Name: [id number] METABOLIC [id number] 18:29:04 Test Item Value Reference Range Interpretation [...] not appl icable for dialysis patien ts Hearth Feeder ID - BSDrug screen, urine, uxbpjvwverrac8328-68-31 08:47:31 Test Item Value Reference Range Interpretation Comments Scan Result (test see scanned report See scanned report. code = 5007847) SUE (test code = see scanned report SUE) [facility], [id number] 08:47:31 Test Item Value Reference Range Interpretation Comments Scan Result (test see scanned report See scanned report. code = 1194148) SUE (test code = see scanned report SUE) [facility], URINE, [id number] 08:47:31 Test Item Value Reference Range Interpretation Comments SCAN RESULT (test see scanned report See scanned report. code = 0475673) see scanned reportPOCT-GLUCOSE [id number] 06:13:13 Test Item Value Reference Range Interpretation Comments POC-GLUCOSE METER 81 mg/dL 70-110 : TESTED A T [facility] 6720 (BEAKER) (test code = [facility], 1538) [address]: Hearth Feeder/Techni smiley ID = [id number] for Jessica Rodrigues [id number] 04:03:55 Test Item Value Reference Range Interpretation Comments PHOSPHORUS (BEAKER) (test code = 4.8 mg/dL 2.3-4.7 H 604) Hearth Feeder ID - EMBASIC METABOLIC [id number] 04:03:54 Test Item Value Reference Range Interpretation [...] not appl icable for dialysis patien ts Hearth Feeder ID - [id number] 04:03:54 Test Item Value Reference Range Interpretation Comments MAGNESIUM (BEAKER) (test code = 2.4 mg/dL 1.6-2.6 627) Hearth Feeder ID - EMHIGH SENSITIVITY TROPONIN [id number] 03:58:57 Test Item Value Reference Range Interpretation Comments HIGH SENSITIVITY 165 pg/ml See_Comment H [Automated message] TROPONIN I (test code The sy stem which = 4041456) generated this result transmitted ref erence range: <=17. Th e reference range was not used to int erpret this result as normal/abnormal . Hearth Feeder ID - EMThe BREAKFAST HOSTESS STAT High Sensitivity Troponin-I results should be used in conjunctionwith other diagnostic information such as ECG, clinical observations and information, and patient symptoms to aid in the diagnosis of [facility].CBC W/PLT COUNT & AUTO [id number] 03:38:52 Test Item Value Reference Range Interpretation [...] PERCENT (BEAKER) (test code = 2801) POCT-GLUCOSE [id number] 00:25:14 Test Item Value Reference Range Interpretation Comments POC-GLUCOSE METER 88 mg/dL 70-110 : TESTED A T [facility] 6720 (BEAKER) (test code = [facility], 1538) 69472: Hearth Feeder/Techni smiley ID = [id number] for Jessica Rodrigues HIGH SENSITIVITY TROPONIN [id number] 22:04:24 Test Item Value Reference Range Interpretation Comments HIGH SENSITIVITY 193 pg/ml See_Comment H [Automated message] TROPONIN I (test code The sy stem which = 3556984) generated this result transmitted ref erence range: <=17. Th e reference range was not used to int erpret this result as normal/abnormal . Hearth Feeder ID - DBThe BREAKFAST HOSTESS STAT High Sensitivity Troponin-I results should be used in conjunctionwith other diagnostic information such as ECG, clinical observations and information, and patient symptoms to aid in the diagnosis of [facility].Urinalysis w/Microscopic + Reflex to [id number] 15:49:18 Test Item Value Reference Range Interpretation Comments Color, UA (test code Yellow = 5778-6) Clarity, UA (test Cloudy code = 5767-9) Specific [place], UA 1.021 1.001-1.035 (test code = 5811-5) pH, UA (test code = 6.0 5.0-8.0 5803-2) Protein, UA (test 70 mg/dL Negative A code = 94884-3) Glucose, UA (test Negative Negative code = 365) Ketones, UA (test Negative Negative code = 2514-8) Bilirubin, UA (test Negative Negative code = 71088-0) Blood, UA (test code Moderate Negative A = 59448-9) Nitrite, UA (test Negative Negative code = 5802-4) Leukocytes, UA (test Trace Negative A code = 5799-2) Urobilinogen, UA 0.2 0.2-1.0 (test code = 16443-8) RBC, UA (test code = 23 See_Comment [Autom ated 89736-3) message] The system which generated this result [...] 6 See_Comment [Automate d (test code = 37178-6) messag e] The system which generated this result transmit markie reference range : /HPF. The reference range was not used to interpret this result as normal/abnormal . Hyaline Casts, UA 1 See_Comment [Automate d (test code = 55291-0) messag e] The system which generated this result transmit markie reference range : /LPF. The reference range was not used to interpret this result as normal/abnormal . Specimen Source (test code = 2795) SUE (test code = SUE) Hearth Feeder ID - [auto]Hearth Feeder ID - bs Lab Interpretation Abnormal (test code = 80511-3) [facility]/Microscopic + Reflex to Culture 2022-11-06 15:49:18 Test Item Value Reference Range Interpretation Comments Color, UA (test code Yellow = 5778-6) Clarity, UA (test Cloudy code = 5767-9) Specific [place], UA 1.021 1.001-1.035 (test code = 5811-5) pH, UA (test code = 6.0 5.0-8.0 5803-2) Protein, UA (test 70 mg/dL Negative A code = 12699-3) Glucose, UA (test Negative Negative code = 365) Ketones, UA (test Negative Negative code = 2514-8) Bilirubin, UA (test Negative Negative code = 42714-2) Blood, UA (test code Moderate Negative A = 58153-4) Nitrite, UA (test Negative Negative code = 5802-4) Leukocytes, UA (test Trace Negative A code = 5799-2) Urobilinogen, UA 0.2 0.2-1.0 (test code = 34949-8) RBC, UA (test code = 23 See_Comment [Autom ated 30708-2) message] The system which generated this result [...] 6 See_Comment [Automate d (test code = 90578-9) messag e] The system which generated this result transmit markie reference range : /HPF. The reference range was not used to interpret this result as normal/abnormal . Hyaline Casts, UA 1 See_Comment [Automate d (test code = 92271-1) messag e] The system which generated this result transmit markie reference range : /LPF. The reference range was not used to interpret this result as normal/abnormal . Specimen Source (test code = 2795) SUE (test code = SUE) Hearth Feeder ID - [auto]Hearth Feeder ID - bs Lab Interpretation Abnormal (test code = 37095-0) [facility]/ REFLEX URINE [id number] 15:49:18 Test Item Value Reference Range Interpretation [...] /LPF 514) SOURCE(BEAKER) (test code = 2795) Hearth Feeder ID - [auto]Hearth Feeder ID - bsPT/[id number] 15:35:00 Test Item Value Reference Range Interpretation [...] patients with mechanical heart valves.HIGH SENSITIVITY TROPONIN [id number] 15:30:15 Test Item Value Reference Range Interpretation Comments HIGH SENSITIVITY 264 pg/ml See_Comment H [Automated message] TROPONIN I (test code The sy stem which = [id number]) generated this result transmitted ref erence range: <=17. Th e reference range was not used to int erpret this result as normal/abnormal . Hearth Feeder ID - ADMINThe BREAKFAST HOSTESS STAT High Sensitivity Troponin-I results should be used in conjunction with other diagnostic information such as ECG, clinical observations and information, and patientsymptoms to aid in the diagnosis of [facility]. Blood gas, [id number] 15:09:57 Test Item Value Reference Range Interpretation Comments pH, Arterial (test code 7.40 7.35-7.45 = 2744-1) pCO2, Arterial (test 44 See_Comment [Autom ated message] code = 2019-) The system [facility] generated this result transmit markie reference range : 35 - 45 mm Hg. The reference range was not used to interpret this result as normal/abnormal . pO2, Arterial (test 195 See_Comment H [Automa markie message] code = 2703-7) The system [employer] generated this result transmit markie reference range [...] 36.0 Lab Interpretation Abnormal (test code = 87031-7) [facility] Hospital[facility], [id number] 15:09:57 Test Item Value Reference Range Interpretation Comments pH, Arterial (test code 7.40 7.35-7.45 = 2744-1) pCO2, Arterial (test 44 See_Comment [Autom ated message] code = 2018-) The system [employer] generated this result transmit markie reference range : 35 - 45 mm Hg. The reference range was not used to interpret this result as normal/abnormal . pO2, Arterial (test 195 See_Comment H [Automa markie message] code = 2703-7) The system [employer] generated this result transmit markie reference range [...] 36.0 Lab Interpretation Abnormal (test code = 97584-0) [facility] HospitalBL[facility]OD GAS, [id number] 15:09:57 Test Item Value Reference Range Interpretation [...] (test code = 1819) 36.0 ECG 12 [id number] 13:44:42Ventricular Rate 62 BPMAtrial Rate 62 BPMP-R Interval 180 msQRS Duration 90 msQ-T Interval 454 msQTCCalculation(Bazett) 460 msP [place] 19 degreesR [place] 64 degreesT [place] 254 degrees Normal sinus rhythmPos sible Left atrial enlargementLeft ventricular hypertrophy with repolarization abnormalityAbnormal ECGWhen compared with ECG of 01-AUG-2022 10:14,ST now depressed in Inferior leadsT wave inversion more evident in Inferior leads Confirmed by MD MELVIN, DANII ([id number]) on 11/06/2022 1:44:41 [facility] [id number] 13:44:42Ventricular Rate 62 BPMAtrial Rate 62 BPMP-R Interval 180 msQRS Duration 90 msQ-T Interval 454 msQTC Calculation(Bazett) 460 msP [place] 19 degreesR [place] 64 degreesT [place] 254 degrees Normal sinus rhythmPossible Left atrial enlargementLeft ventricular hypertrophy with repolarization abnormalityAbnormal ECGWhen compared with ECG of 01-AUG-2022 10:14,ST now depressed in Inferior leadsT wave inversion more evident in Inferior leads Confirmed by MD MELVIN, [facility] ([id number]) on 11/06/2022 1:44:41 PM [facility] HospitalXR [facility] 1 view portable / [id number] 13:38:36 Chest, 1 view, 11/06/2022 11:58 AM. History: r/o aspiration pneumonia. Comparison: 10/30/2022. Discussion: The cardiac silhouette is prominent but stable. Lungs areclear. There is no pneumothorax. Feeding tube terminates below thehemidiaphragm. Right IJ central line is no longer present. There are noacute osseous findings.[facility] HospitalXR [facility] 1 VIEW PORTABLE / BEDSIDE 2022-11-06 13:38:36 [facility] 1975 Sex: FChest, 1 view, 11/06/2022 11:58 AM.History: r/o aspiration pneumonia.Comparison: 10/30/2022.Discussion: Thecardiac silhouette is prominent but stable. Lungs areclear. There is no pneumothorax. Feeding tube terminates below thehemidiaphragm. Right IJ central line is no longer present. There are noacute osseous findings.IMPRESSION:No acute pulmonary findings.Electronically Signed By: Sage Caruso11/06/2022 13:40 CDTWorkstation Name: [id number] 2022-11-06 11:32:33 Test Item Value Reference Range Interpretation Comments PROCALCITONIN (BEAKER) (test code 0.31 ng/mL <0.05 H = 3036) SEPSIS RISK (ng/mL)Low: 0.05-0.50Intermediate: 0.51-2.00High: >=2.01HIGH SENSITIVITY TROPONIN [id number] 11:27:53 Test Item Value Reference Range Interpretation Comments HIGH SENSITIVITY 344 pg/ml See_Comment H [Automated message] TROPONIN I (test code The sy lianna which = 9200261) generated this result transmitted ref erence range: <=17. Th e reference range was not used to int erpret this result as normal/abnormal . Hearth Feeder ID - DAMIÁN WThe BREAKFAST HOSTESS STAT High Sensitivity Troponin-I results should be used in conjunction with other diagnostic information such as ECG, clinical observations and information, and patient symptoms to aid in the diagnosis of VA.LACTIC ACID, [id number] 11:07:17 Test Item Value Reference Range Interpretation Comments LACTATE BLOOD VENOUS (2) (BEAKER) 0.80 mmol/L 0.50-2.00 (test code = 2872) Hearth Feeder ID Gisele STEEL WCT BRAIN WITHOUT IV [id number] 10:59:53 [facility] : 1975 Sex: F ADDENDUM #1 Addendum: [...] Signed By: Alexandra Liang11/06/2022 11:01 CDTWorkstation Name: [id number] 10:57:58 Test Item Value Reference Range Interpretation Comments POC-Glucose (test code = 117 mg/dL 70-110 H : T ESTED AT [facility] 1855) 6720 [facility], 770 30: Hearth Feeder/Techni smiley ID = [id number] for RACELIS, SHELBY INE Lab Interpretation (test Abnormal code = 92676-6) [facility]-[id number] 10:57:58 Test Item Value Reference Range Interpretation Comments POC-Hematocrit (test code 34 % 36-45 L : = 1857) Hearth Feeder/Techni smiley ID = [id number] for RACELIS, SHELBY INE Lab Interpretation (test Abnormal code = 33540-9) [facility] [id number] 10:57:58 Test Item Value Reference Range Interpretation Comments POC-Glucose (test code = 117 mg/dL 70-110 H : T ESTED AT [facility] 1855) 67[address] [facility], 770 30: Hearth Feeder/Techni smiley ID = [id number] for RACELIS, SHELBY INE Lab Interpretation (test Abnormal code = 79912-2) [facility]-[id number] 10:57:58 Test Item Value Reference Range Interpretation Comments POC-Hematocrit (test code 34 % 36-45 L : = 1857) Hearth Feeder/Techni smiley ID = [id number] for RACELIS, SHELBY INE Lab Interpretation (test Abnormal code = 49602-2) [facility]-[id number] 10:57:58 Test Item Value Reference Range Interpretation Comments POC-HEMATOCRIT 34 % 36-45 L : Hearth Feeder/Te chnician ID = (BEAKER) (test code = 593594 for RACELIS, 1857) SAMY [id number]-[id number] 10:57:58 Test Item Value Reference Range Interpretation Comments POC-GLUCOSE (BEAKER) 117 mg/dL 70-110 H : TESTE D AT [facility] 6720 (test code = 1855) [facility], [address]: Hearth Feeder/Techni smiley ID = [id number] for RACE LIS SAMY AKY-[id number] 10:57:57 Test Item Value Reference Range Interpretation Comments POC-Potassium (test code 5.5 meq/L 3.6-5.5 : T ESTED AT [facility] = 1540) [address] [facility], 770 30: Hearth Feeder/Techni smiley ID = [id number] for RACELIS, SHELBY INE Lab Interpretation (test Normal code = 82579-0) [facility]-[id number] 10:57:57 Test Item Value Reference Range Interpretation Comments POC-Hemoglobin (test code 11.6 g/dL 12.0-15.0 L : TESTED AT [facility] = 1856) [address] [facility], 770 30: Hearth Feeder/Techni smiley ID = [id number] for RACELIS, SHELBY INE Lab Interpretation (test Abnormal code = 61976-7) [facility]-Vjnyfntkp3533-47-57 10:57:57 Test Item Value Reference Range Interpretation Comments POC-Potassium (test code 5.5 meq/L 3.6-5.5 : T ESTED AT [facility] = 1540) 67[address] [facility], 770 30: Hearth Feeder/Techni smiley ID = [id number] for RACELIS, SHELBY INE Lab Interpretation (test Normal code = 48320-8) [facility]-[id number] 10:57:57 Test Item Value Reference Range Interpretation Comments POC-Hemoglobin (test code 11.6 g/dL 12.0-15.0 L : TESTED AT [facility] = 1856) [address] [place] [address], 770 30: Hearth Feeder/Techni smiley ID = [id number] for RACELIS, SHELBY INE Lab Interpretation (test Abnormal code = 80246-1) [id number] 10:57:57 Test Item Value Reference Range Interpretation Comments POC-POTASSIUM 5.5 meq/L 3.6-5.5 : TESTED AT [place] [address] (BEAKER) (test code [facility], = 1540) [address]: Hearth Feeder/Techni smiley ID = [id number] for RACE SAMY GUPTA QMWM-[id number] 10:57:57 Test Item Value Reference Range Interpretation Comments POC-HEMOGLOBIN 11.6 g/dL 12.0-15.0 L : TESTED AT [place] [address] (BEAKER) (test code [facility], = 1856) [address]: Hearth Feeder/Techni smiley ID = [id number] for RACE SHELBY GUPTAINE NWV-Pgnrje9212-55-22 10:57:52 Test Item Value Reference Range Interpretation Comments POC-Sodium (test code = 142 meq/L 135-148 : TE STED AT [facility] 1542) [address] [place] [address], 770 30: Hearth Feeder/Techni smiley ID = [id number] for RACELIS, SHELBY INE Lab Interpretation (test Normal code = 92887-5) [facility]-Vaumjd1077-79-67 10:57:52 Test Item Value Reference Range Interpretation Comments POC-Sodium (test code = 142 meq/L 135-148 : TE STED AT [facility] 1542) [address] [place] [address], 770 30: Hearth Feeder/Techni smiley ID = [id number] for RACELIS, SHELBY INE Lab Interpretation (test Normal code = 11904-8) [facility]-VAOSDQ0519-54-07 10:57:52 Test Item Value Reference Range Interpretation Comments POC-SODIUM (BEAKER) 142 meq/L 135-148 : TESTED AT [facility] 67 (test code = 1542) [place], [address]: Hearth Feeder/Techni smiley ID = [id number] for SAMY DAVIS POC-Blood gases, tmrhbsno1645-39-17 10:57:51 Test Item Value Reference Range Interpretation [...] tomated message] code = 1838) The system Miaopai generated this result transmit markie reference range : 80.0 - 90.0 mm Hg. The reference r elizabeth was not used to interpret this result as normal/abnormal . SO2, Arterial-POC (test 35.0 % 96.0-97.0 L code = 1839) HCO3, Arterilal-POC 32.6 meq/L 21.0-29.0 H (test code = 1840) BE, Arterial-POC (test 7.0 meq/L -2.0-3.0 H : LAISHA MARKIE AT [facility] code = 1841) [address] [facility], [address]: Hearth Feeder/Techni smiley ID = [id number] for SHELBY GONZALEZ DORENE Lab Interpretation Abnormal (test code = 84097-5) [facility]-Blood gases, [id number] 10:57:51 Test Item Value Reference Range Interpretation [...] tomated message] code = 1838) The system Miaopai generated this result transmit markie reference range : 80.0 - 90.0 mm Hg. The reference r elizabeth was not used to interpret this result as normal/abnormal . SO2, Arterial-POC (test 35.0 % 96.0-97.0 L code = 1839) HCO3, Arterilal-POC 32.6 meq/L 21.0-29.0 H (test code = 1840) BE, Arterial-POC (test 7.0 meq/L -2.0-3.0 H : LAISHA MARKIE AT [facility] code = 1841) [address]20 [facility] [place], [address]: Hearth Feeder/Techni smiley ID = [id number] for SHELBY GONZALEZ Lab Interpretation Abnormal (test code = 54146-1) [facility], [id number] 10:57:51 Test Item Value Reference Range Interpretation [...] meq/L -2.0-3.0 H : TESTED AT [facility] 6720 ARTERIAL-POC [facility], (BEAKER) (test code 888[address]: = 1841) Hearth Feeder/Techni smiley ID = [id number] for SAMY DAVIS POCT-GLUCOSE [id number] 10:21:20 Test Item Value Reference Range Interpretation Comments POC-GLUCOSE METER 117 mg/dL 70-110 H : TESTED A T [facility] 6720 (BEAKER) (test code = [facility], 1538) [address]: Hearth Feeder/Techni smiley ID = [id number] for MANDA ESPARZA CT brain without IV qcemfcvt8968-20-35 09:31:[address] BRAIN WITHOUT IV [...] within normal limits. No obstructive paranasal sinus disease.[facility]PO[facility] [id number] 05:45:28 Test Item Value Reference Range Interpretation Comments POC-GLUCOSE METER 116 mg/dL 70-110 H : TESTED A T [facility] 6720 (BEAKER) (test code = [facility], 1538) [address]: Hearth Feeder/Techni smiley ID = [id number] for Teresa Rose BASIC METABOLIC [id number] 05:42:31 Test Item Value Reference Range Interpretation [...] not appl icable for dialysis patien ts Hearth Feeder ID - QOUMPSPDGBOCNR7878-24-82 05:40:46 Test Item Value Reference Range Interpretation Comments MAGNESIUM (BEAKER) (test code = 2.9 mg/dL 1.6-2.6 H 627) Hearth Feeder ID - [id number] 05:40:46 Test Item Value Reference Range Interpretation Comments PHOSPHORUS (BEAKER) (test code = 6.5 mg/dL 2.3-4.7 H 604) Hearth Feeder ID - ADMINCBC W/PLT COUNT & AUTO [id number] 05:38:35 Test Item Value Reference Range Interpretation [...] PERCENT (BEAKER) (test code = 2801) POCT-GLUCOSE [id number] 23:35:25 Test Item Value Reference Range Interpretation Comments POC-GLUCOSE METER 135 mg/dL 70-110 H : TESTED A T [facility] 6720 (BEAKER) (test code = [place], 1538) [address]: Hearth Feeder/Techni smiley ID = [id number] for Teresa Rose POCT-GLUCOSE [id number] 17:28:48 Test Item Value Reference Range Interpretation Comments POC-GLUCOSE METER 101 mg/dL 70-110 : TESTED A T [facility] 6720 (BEAKER) (test code = [place], 1538) [address]: Hearth Feeder/Techni smliey ID = [id number] for CIRA HUMPHREY BLOOD [id number] 17:00:30 Test Item Value Reference Range Interpretation Comments CULTURE (BEAKER) (test No growth in 5 days code = 1095) BLOOD [id number] 17:00:30 Test Item Value Reference Range Interpretation Comments CULTURE (BEAKER) (test No growth in 5 days code = 1095) XR ABDOMEN/KUB 1 VIEW [id number] 14:17:07 [facility] 1975 Sex: FXR ABDOMEN/KUB 1 VIEW PORTABLETECHNIQUE: Supine radiograph(s) of the abdomen and pelvis.HISTORY: corpak placementCOMPARISON: 12/04/2022IMPRESSION:Lines and tubes: Enteric tube is seen with tip in the stomachElectronically Signed By: Sarah Carrera11/05/2022 14:19 CDTWorkstation Name: [id number] [id number] 12:53:33 Test Item Value Reference Range Interpretation Comments POC-GLUCOSE METER 88 mg/dL 70-110 : TESTED A T [facility] 6720 (BEAKER) (test code = [facility], 1538) [address]: Hearth Feeder/Techni smiley ID = [id number] for CIRA ROLAND POCT-GLUCOSE [id number] 06:25:50 Test Item Value Reference Range Interpretation Comments POC-GLUCOSE METER 110 mg/dL 70-110 : TESTED A T [facility] 6720 (BEAKER) (test code = [facility], 1538) [address]: Hearth Feeder/Techni smiley ID = [id number] for NADEGE IVEY BASIC METABOLIC [id number] 04:16:53 Test Item Value Reference Range Interpretation [...] not appl icable for dialysis patien ts Hearth Feeder ID - DAMIÁN YRJCESBAHL7153-12-14 04:16:53 Test Item Value Reference Range Interpretation Comments MAGNESIUM (BEAKER) (test code = 2.8 mg/dL 1.6-2.6 H 627) Hearth Feeder ID - DAMIÁN [id number] 04:16:53 Test Item Value Reference Range Interpretation Comments PHOSPHORUS (BEAKER) (test code = 5.7 mg/dL 2.3-4.7 H 604) Hearth Feeder ID - DAMIÁN WCBC W/PLT COUNT & AUTO [id number] 03:44:05 Test Item Value Reference Range Interpretation [...] % 0.00-1.00 PERCENT (BEAKER) (test code = 8871) POCT-GLUCOSE [id number] 23:25:33 Test Item Value Reference Range Interpretation Comments POC-GLUCOSE METER 114 mg/dL 70-110 H : TESTED A T [facility] 6720 (BEAKER) (test code = [facility], 153) [address]: Hearth Feeder/Techni smiley ID = [id number] for NADEGE IVEY [id number] 18:58:11 Test Item Value Reference Range Interpretation Comments SODIUM (BEAKER) (test code = 381) 142 meq/L 136-145 Hearth Feeder ID - JSPOCT-GLUCOSE EHVLV6384-55-03 17:04:52 Test Item Value Reference Range Interpretation Comments POC-GLUCOSE METER 142 mg/dL 70-110 H : TESTED A T [facility] 6720 (BEAKER) (test code = [facility], 153) [address]: Hearth Feeder/Techni smiley ID = [id number] for MA RTINEZ, MANDA POCT-GLUCOSE [id number] 12:43:34 Test Item Value Reference Range Interpretation Comments POC-GLUCOSE METER 127 mg/dL 70-110 H : TESTED A T [facility] 6720 (BEAKER) (test code = [facility], 153) [address]: Hearth Feeder/Techni smiley ID = [id number] for MA RTINEZ, MANDA [id number] 12:42:31 Test Item Value Reference Range Interpretation Comments SODIUM (BEAKER) (test code = 381) 141 meq/L 136-145 Hearth Feeder ID - JSPOCT-GLUCOSE RXCFN3950-84-69 05:53:11 Test Item Value Reference Range Interpretation Comments POC-GLUCOSE METER 122 mg/dL 70-110 H : TESTED A T [facility] 6720 (BEAKER) (test code = [facility], 153) [address]: Hearth Feeder/Techni smiley ID = [id number] for NADEGE IVEY [id number] 04:57:58 Test Item Value Reference Range Interpretation Comments PHOSPHORUS (BEAKER) 6.1 mg/dL 2.3-4.7 H Specimen slightly (test code = 604) hemolyzed Hearth Feeder ID - DAMIÁN WBASIC METABOLIC [id number] 04:57:58 Test Item Value Reference Range Interpretation [...] not appl icable for dialysis patien ts Hearth Feeder ID - DAMIÁN SKXOCIGIEU5907-09-45 04:57:57 Test Item Value Reference Range Interpretation Comments MAGNESIUM (BEAKER) 2.7 mg/dL 1.6-2.6 H Specimen slightly (test code = 627) hemolyzed Hearth Feeder ID - DAMIÁN WCBC W/PLT COUNT & AUTO [id number] 04:36:11 Test Item Value Reference Range Interpretation [...] PERCENT (BEAKER) (test code = 2801) POCT-GLUCOSE [id number] 00:26:17 Test Item Value Reference Range Interpretation Comments POC-GLUCOSE METER 117 mg/dL 70-110 H : TESTED A T [facility] 6720 (BEAKER) (test code = [place], 1538) [address]: Hearth Feeder/Techni smiley ID = [id number] for NADEGE IVEY2023-08-19 19:29:04 Test Item Value Reference Range Interpretation Comments SODIUM (BEAKER) (test code = 381) 141 meq/L 136-145 Hearth Feeder ID - ADMINPOCT-GLUCOSE [id number] 16:58:24 Test Item Value Reference Range Interpretation Comments POC-GLUCOSE METER 142 mg/dL 70-110 H : TESTED A T [facility] 6720 (BEAKER) (test code = [place], 1538) [address]: Hearth Feeder/Techni smiley ID = [id number] for TRACEY GEORGE, MANDA XR ABDOMEN/KUB 1 VIEW [id number] 13:01:43 [facility] 1975 Sex: FAbdomen , one viewHistory:Feeding tube placementComparison:10/30/2022Findings:Tip of the feeding tube is near the pylorus. Nonobstructive bowel gaspattern. Cholecystectomy clips within the right upper quadrant.Electronically Signed By: Kam Vigil MD11/03/2022 13:03 CDTWorkstation Name: [id number] 12:39:24 Test Item Value Reference Range Interpretation Comments SODIUM (BEAKER) (test code = 381) 142 meq/L 136-145 POCT-GLUCOSE [id number] 12:05:03 Test Item Value Reference Range Interpretation Comments POC-GLUCOSE METER 118 mg/dL 70-110 H : TESTED A T [facility] 6720 (BEAKER) (test code = [facility] [place] [facility], 1538) [address]: Hearth Feeder/Techni smiley ID = [id number] for MA RTINEZ, MANDA [id number] 06:17:11 Test Item Value Reference Range Interpretation Comments PHOSPHORUS (BEAKER) (test code = 4.1 mg/dL 2.3-4.7 604) Hearth Feeder ID Gisele STEEL WBASIC METABOLIC [id number] 06:17:10 Test Item Value Reference Range Interpretation [...] not appl icable for dialysis patien ts Hearth Feeder ID Gisele STEEL [id number] 06:17:10 Test Item Value Reference Range Interpretation Comments MAGNESIUM (BEAKER) (test code = 2.4 mg/dL 1.6-2.6 627) Hearth Feeder ID Gisele STEEL WPOCT-GLUCOSE [id number] 05:50:21 Test Item Value Reference Range Interpretation Comments POC-GLUCOSE METER 121 mg/dL 70-110 H : TESTED A T [facility] 6720 (BEAKER) (test code = [place], 1538) [address]: Hearth Feeder/Techni smiley ID = [id number] for NADEGE IVEY CBC W/PLT COUNT & AUTO [id number] 05:25:22 Test Item Value Reference Range Interpretation [...] PERCENT (BEAKER) (test code = 2801) POCT-GLUCOSE [id number] 23:36:51 Test Item Value Reference Range Interpretation Comments POC-GLUCOSE METER 116 mg/dL 70-110 H : TESTED A T [facility] 6720 (BEAKER) (test code = [facility], 1538) [address]: Hearth Feeder/Techni smiley ID = [id number] for NADEGE IVEY [id number] 18:30:49 Test Item Value Reference Range Interpretation Comments SODIUM (BEAKER) (test code = 381) 141 meq/L 136-145 Hearth Feeder ID - ADMINPOCT-GLUCOSE [id number] 17:57:14 Test Item Value Reference Range Interpretation Comments POC-GLUCOSE METER 118 mg/dL 70-110 H : TESTED A T [facility] 6720 (BEAKER) (test code = [facility], 153) [address]: Hearth Feeder/Techni smiley ID = [id number] for An Donna lucas MRSA ciytke0813-18-19 14:39:15 Test Item Value Reference Range Interpretation Comments Result (test code = 6463-4) No [facility] [id number] 14:39:15 Test Item Value Reference Range Interpretation Comments Result (test code = 6463-4) No [facility] [id number] 14:39:15 Test Item Value Reference Range Interpretation Comments CULTURE (BEAKER) (test code No MRSA isolated = 1095) [id number] 13:35:39 Test Item Value Reference Range Interpretation Comments SODIUM (BEAKER) (test code = 381) 139 meq/L 136-145 Hearth Feeder ID - BVPOCT-GLUCOSE HSDLJ0032-80-44 13:06:41 Test Item Value Reference Range Interpretation Comments POC-GLUCOSE METER 134 mg/dL 70-110 H : TESTED A T [facility] 6720 (BEAKER) (test code = [facility], 1538) [address]: Hearth Feeder/Techni smiley ID = [id number] for An Donna lucas CT BRAIN WITHOUT IV [id number] 13:00:59 [facility] : 1975 Sex: [...] Signed By: Alexandra Liang11/02/2022 13:03 CDTWorkstation Name: [id number] 06:29:29 Test Item Value Reference Range Interpretation Comments SODIUM (BEAKER) (test code = 381) 139 meq/L 136-145 BASIC METABOLIC [id number] 06:29:28 Test Item Value Reference Range Interpretation [...] not appl icable for dialysis patien ts Hearth Feeder ID - BQTFDEIDTDKFQM3309-57-29 06:29:28 Test Item Value Reference Range Interpretation Comments MAGNESIUM (BEAKER) (test code = 2.2 mg/dL 1.6-2.6 627) Hearth Feeder ID - HCAJUOIVVXXESAH0255-38-54 06:29:28 Test Item Value Reference Range Interpretation Comments PHOSPHORUS (BEAKER) (test code = 3.8 mg/dL 2.3-4.7 604) Hearth Feeder ID - MARCOPOCT-GLUCOSE [id number] 06:21:55 Test Item Value Reference Range Interpretation Comments POC-GLUCOSE METER 125 mg/dL 70-110 H : TESTED A T [facility] 6720 (BEAKER) (test code = [place], 1538) [address]: Hearth Feeder/Techni smiley ID = [id number] for NADEGE IVEY CBC W/PLT COUNT & AUTO [id number] 06:08:00 Test Item Value Reference Range Interpretation [...] PERCENT (BEAKER) (test code = 2801) POCT-GLUCOSE [id number] 00:19:06 Test Item Value Reference Range Interpretation Comments POC-GLUCOSE METER 99 mg/dL 70-110 : TESTED A T [facility] 6720 (BEAKER) (test code = [facility] [place] [facility], 1538) [address]: Hearth Feeder/Techni smiley ID = [id number] for NADEGE MORALES [id number] 18:45:56 Test Item Value Reference Range Interpretation Comments SODIUM (BEAKER) (test code = 381) 140 meq/L 136-145 Hearth Feeder ID - ADMPOCT-GLUCOSE [id number] 18:39:21 Test Item Value Reference Range Interpretation Comments POC-GLUCOSE METER 121 mg/dL 70-110 H : TESTED A T [facility] 6720 (BEAKER) (test code [facility], = 1538) [address]: Hearth Feeder/Techni smiley ID = [id number] for Latonia Connolly 2D Echo W/Doppler(CW/PW/Color)2022-11-01 17:30:35Transthoracic Echocardiography Report (TTE) Demographics Patient Name IVÁN Cabello Date of Study 11/01/2022 Gender Female Visit Number [id number] Race Unknown Room Number 7516 Number Date of 1975 Referring Physician Katelyn Chavez Age 47 year(s)Candle Pourer Bernard Lopez [employer] As[employer] No Evangelista, Interpreting Ermias Fink [facility] PhysicianMDProcedure Type of Study TTE procedure:2DECHO W [...] cmDoppler/Quantitative Measurements Mitral Valve MV Peak E-Wave: 0.6 3 m/s MV Peak A-Wave: 0.97 m/s E/A [...] Peak Velocity: 1.32 m/s Peak Gradient: 7.01 mmHgKaiser Foundation Hospital [id number] 14:24:36 Test Item Value Reference Range Interpretation Comments SODIUM (BEAKER) (test code = 381) 140 meq/L 136-145 Hearth Feeder ID - [id number] 10:06:02 Test Item Value Reference Range Interpretation Comments POTASSIUM (BEAKER) (test code = 3.8 meq/L 3.5-5.1 379) Hearth Feeder ID - [id number] 10:06:01 Test Item Value Reference Range Interpretation Comments MAGNESIUM (BEAKER) (test code = 2.3 mg/dL 1.6-2.6 627) Hearth Feeder ID - ADMVANCOMYCIN LEVEL, [id number] 09:59:39 Test Item Value Reference Range Interpretation Comments VANCOMYCIN TROUGH (BEAKER) (test 8.4 ug/mL 10.0-20.0 L code = 522) Hearth Feeder ID - [id number] 04:21:26 Test Item Value Reference Range Interpretation Comments MAGNESIUM (BEAKER) (test code = 2.0 mg/dL 1.6-2.6 627) Hearth Feeder ID - [id number] 04:21:26 Test Item Value Reference Range Interpretation Comments PHOSPHORUS (BEAKER) (test code = 3.2 mg/dL 2.3-4.7 604) Hearth Feeder ID - ADMINBASIC METABOLIC [id number] 04:21:25 Test Item Value Reference Range Interpretation [...] not appl icable for dialysis patien ts Hearth Feeder ID - ADMINCBC W/PLT COUNT & AUTO [id number] 03:36:42 Test Item Value Reference Range Interpretation [...] 0.00-1.00 PERCENT (BEAKER) (test code = 2801) [id number] 00:11:29 Test Item Value Reference Range Interpretation Comments SODIUM (BEAKER) (test code = 381) 139 meq/L 136-145 Hearth Feeder ID - [id number] 18:25:44 Test Item Value Reference Range Interpretation Comments SODIUM (BEAKER) (test code = 381) 139 meq/L 136-145 Hearth Feeder ID - esauSARS-CoV2/Influenza/RSV RT-PCR (Symptomatic ONLY)2022-10-31 14:03:24 Test Item Value Reference Interpretation Comments Range SARS-COV2/RT-PCR Negative Negative The SARS-Co V-2 (test code = target nucleic 30047-9) acids are not detected in thi s [...] S ARS CoV-2 test is a rapid, real-marichuy e RT-PCR test intended for e qualitative detection of nucleic acid fr om SARS-CoV-2 in a nasopharyngeal swab specimen [facility] from individual s suspected of COVID-19 by the ir healthcare provider. Influenza A RT-PCR Negative Negative The Flu A target (test code = [place] 10255-4) not detected in this specimen. Influenza B RT-PCR Negative Negative The Flu B target (test code = nucleic [place] 09987-5) not detected in this specimen. RSV by RT-PCR (test Negative Negative The RSV target code = 85356-0) nucleic acid s are not detected in [...] of the Act. Fact Sheet for Healthcare Providers:https://murphy mckeon.[employer]/Docu ments/Xpert%20Xpres s%20SARS%20CoV-2/Fa ct%20Sheets/302-390 2%84QZQW-UQE-7%20HE ALTHCARE%20PROVIDER S%20FACT%20SHEET.pd f Fact Sheet for Healthcare Patients:https://[employer]/Docum ents/Xpert%20Xpress %20SARS%20Cov-2/Fac t%20Sheets/302-3801 %82TSDX-VNF-3%20PAT IENT%20FACT%20SHEET .pdf Lab Interpretation Normal (test code = 98206-7) [facility]Symptomatic ONLY) 2022-10-31 14:03:24 Test Item Value Reference Interpretation Comments Range SARS-COV2/RT-PCR Negative Negative The SARS-Co V-2 (test code = target nucleic 91714-0) acids are not detected in thi s [...] S ARS CoV-2 test is a rapid, real-marichuy e RT-PCR test intended for e qualitative detection of nucleic acid fr om SARS-CoV-2 in a nasopharyngeal swab specimen colle markie from individual s suspected of COVID-19 by the ir healthcare provider. Influenza A RT-PCR Negative Negative The Flu A target (test code = [place] [address]-3) not detected in this specimen. Influenza B RT-PCR Negative Negative The Flu B target (test code = [place] [address]-4) not detected in this specimen. RSV by RT-PCR (test Negative Negative The RSV target code = 67107-0) nucleic acid s are not detected in [...] SARS-CoV-2/Flu/RSV by their healthcare provider. Results from [facility] Xpert Xpress SARS-CoV-2/Flu/RSV test should be [...] the Act. Fact Sheet for Healthcare Providers:https://w [employer]/Docu ments/Xpert%20Xpres s%20SARS%20CoV-2/Fa ct%20Sheets/302-390 2%83JWBY-OGE-3%20HE ALTHCARE%20PROVIDER S%20FACT%20SHEET.pd f Fact Sheet for Healthcare Patients:https://[employer]/Docum ents/Xpert%20Xpress %20SARS%20Cov-2/Fac t%20Sheets/302-3801 %82BHFJ-IUP-4%20PAT IENT%20FACT%20SHEET .pdf Lab Interpretation Normal (test code = 86635-2) [facility]RSV [id number] 14:03:24 Test Item Value Reference Range Interpretation Comments SARS-COV2/RT-PCR Negative Negative The SARS-Co V-2 target (test code = nucleic acids a re not 4347888) detected in thi s specimen. Negat yesika [...] individuals amanda pected of COVID-19 by the [facility]. INFLUENZA A RT-PCR Negative Negative The Flu A target nucleic (test code = acids are not d etected in 19100421) this specimen. INFLUENZA B RT-PCR Negative Negative The Flu B target nucleic (test code = acids are not d etected in 19100422) this specimen. RSV RT-PCR (test Negative Negative The RSV tar get nucleic code = 19100423) acids are no t detected in this [...] of the Act.Fact Sheet for Healthcare Providers:https ://www.[employer]/Documents/Xpert%20Xpress%20SARS%20CoV-2/Fact%20Sheets/302-390 2%21FFCL-BLE-3%20HEALTHCARE%20PROVIDERS%20FACT%20SHEET.pdfFact Sheet for Healthcare Patients:https://www.[employer]/Docum ents/Xpert%20Xpress%20SARS%20Cov-2/Fact%20Sheets/302-3801%57NAIW-IRA-4%20PATIENT %20FACT%20SHEET.[id number] 12:52:25 Test Item Value Reference Range Interpretation Comments SODIUM (BEAKER) (test code = 381) 135 meq/L 136-145 L [employer] ID - elehZVHPDZJCJ5808-97-39 12:52:24 Test Item Value Reference Range Interpretation Comments MAGNESIUM (BEAKER) (test code = 2.4 mg/dL 1.6-2.6 627) [employer] ID - esauPOCT-GLUCOSE [id number] 12:00:51 Test Item Value Reference Range Interpretation Comments POC-GLUCOSE METER 130 mg/dL 70-110 H : TESTED A T [facility] 6720 (BEAKER) (test code [facility], = 1538) [address]335: [employer]/Techni smiley ID = [id number] for Latonia Connolly B-TYPE NATRIURETIC FACTOR (BNP)2022-10-31 10:43:21 Test Item Value Reference Range Interpretation Comments B-TYPE NATRIURETIC PEPTIDE (BEAKER) 568 pg/mL 0-100 H (test code = 700) [employer] ID - esauVenous doppler legs oolyvrxms4699-65-20 08:29:42PV LAB - Lower Extremities DVT Study Demographics Patient Name IVÁN INIGUEZ Date of Study 10/31/2022 L Age 47 Visit Number [id number] Gender Female Accession Number [id number] Date of 1975 Referring Kathy Zepeda MD Room Number 7516 Physician Candle Pourer Wayne Zavala [facility] Interpreting Bia Herbert MD Physician [...] venous obstruction in the great saphenous vein.Left Impre ssion1. There is no deep venous obstruction in [...] waveforms were phasic with respiration . Signature Electronically signedby Bia Herbert MD(Interpreting physician) on 10/31/2022 08:29 AM Velocities are measured in cm/s ; Diameters are measured in [facility] do[facility] arms lmqkrrzis2692-42-19 08:29:21PV LAB - Upper Extremities Veins Demographics Patient Name IVÁN INIGUEZ Date of Study 10/31/2022L Age 47 Visit Number [id number] Gender Female Accession Number [id number] Date of Birth1975 Referring Kathy Zepeda MD Room Number 7546 Physician Candle Pourer Wayne Zavala [facility] Interpreting Bia Herbert MD Physician FellowProcedureType of Study: Veins: Upper Extremities Veins, VENOUS DOPPLER ARMS, BILATERAL.Indications for Study:Evaluate for DVT.Patient Status:Routine.Study Location:Portable.Technical Quality:Adequate visualization. - Results were reported to:VIKTORIA Akins @3:42 am on 10/31/22.Risk FactorsHistory of Disease+ ---------+----+--------+!Diagnosis !Date!Comments!+ +----+--------+!History/Risk Factors: ! !HTN !+ +----+--------+ImpressionsRight Impression1. There is no deep venous obstruction inthe jugular, subclavian, axillary,brachial, radial or ulnar veins.2. [...] in cm/s ; Diameters are measured in [facility] [id number] 05:07:29 Test Item Value Reference Range Interpretation Comments MAGNESIUM (BEAKER) (test code = 1.9 mg/dL 1.6-2.6 627) [employer] ID - [id number] 05:07:29 Test Item Value Reference Range Interpretation Comments PHOSPHORUS (BEAKER) (test code = 3.7 mg/dL 2.3-4.7 604) [employer] ID - ADMINBASIC METABOLIC [id number] 05:07:28 Test Item Value Reference Range Interpretation [...] not appl icable for dialysis patien ts [employer] ID - ADMINCBC W/PLT COUNT & AUTO [id number] 04:47:13 Test Item Value Reference Range Interpretation [...] 0.00-1.00 PERCENT (BEAKER) (test code = 2801) [id number] 23:06:40 Test Item Value Reference Range Interpretation Comments SODIUM (BEAKER) (test code = 381) 133 meq/L 136-145 L [employer] ID - ADMINHIGH SENSITIVITY TROPONIN [id number] 22:59:43 Test Item Value Reference Range Interpretation Comments HIGH SENSITIVITY 92 pg/ml See_Comment H [Automated message] TROPONIN I (test code = The system which [id number]) generated this result transmitted ref erence range: <=17. Th e reference range was not used to int erpret this result as normal/abnormal . [employer] ID - ADMINThe BREAKFAST HOSTESS STAT High Sensitivity Troponin-I results should be used in conjunction with other diagnostic information such as ECG, clinical observations and information, and patientsymptoms to aid in the diagnosis of [facility]. XR ABDOMEN/KUB 1 VIEW [id number] 18:54:45 [facility] : 1975 Sex: FTECHNIQUE: XR ABDOMEN/KUB 1 VIEW PORTABLEINDICATION: corpak placement.COMPARISON: 10/29/2022FINDINGS:Feeding tube tip projecting over the body of the stomach. No specificevidence for bowel obstruction. Cholecystectomy clips are noted. Supineradiographs are insensitive for detection of free intraperitoneal ai r.IMPRESSION:Feeding tube tip projects over the body of the stomach.Electronically Signed By: Mo Soares10/30/2022 18:56 CDTWorkstation Name: [id number] SENSITIVITY TROPONIN [id number] 17:30:01 Test Item Value Reference Range Interpretation Comments HIGH SENSITIVITY 123 pg/ml See_Comment H [Automated message] TROPONIN I (test code The sy stem which = [id number]) generated this result transmitted ref erence range: <=17. Th e reference range was not used to int erpret this result as normal/abnormal . [employer] ID - BSThe BREAKFAST HOSTESS STAT High Sensitivity Troponin-I results should be used in conjunctionwith other diagnostic information such as ECG, clinical observations and information, and patient symptoms to aid in the diagnosis of [facility].Lactic Acid, [id number] 17:25:59 Test Item Value Reference Range Interpretation Comments Lactate, Art (test code = 1.0 mmol/L 0.5-2.0 2874) SUE (test code = SUE) [employer] ID - ADMIN Lab Interpretation (test Normal code = 77495-9) [facility] HospitalL[facility], [id number] 17:25:59 Test Item Value Reference Range Interpretation Comments Lactate, Art (test code = 1.0 mmol/L 0.5-2.0 2874) SUE (test code = SUE) [employer] ID - ADMIN Lab Interpretation (test Normal code = 48912-4) [facility] HospitalLACTIC ACID, [id number] 17:25:59 Test Item Value Reference Range Interpretation Comments LACTATE BLOOD ARTERIAL (2) 1.0 mmol/L 0.5-2.0 (BEAKER) (test code = 2874) [employer] ID - [id number] 17:21:36 Test Item Value Reference Range Interpretation Comments SODIUM (BEAKER) (test code = 381) 136 meq/L 136-145 [employer] ID - ADMINBLOOD GAS, [id number] 14:46:08 Test Item Value Reference Range Interpretation [...] FIO2 (BEAKER) (test code = 1819) 100.0 [id number] 12:47:53 Test Item Value Reference Range Interpretation Comments SODIUM (BEAKER) (test code = 381) 137 meq/L 136-145 [employer] ID - JSLACTIC ACID, [id number] 12:47:37 Test Item Value Reference Range Interpretation Comments LACTATE BLOOD 2.3 mmol/L 0.5-2.0 H Specimen sligh tly ARTERIAL (2) (BEAKER) hemoly zed (test code = 2874) [employer] ID - JSBLOOD GAS, [id number] 12:23:19 Test Item Value Reference Range Interpretation [...] FIO2 (BEAKER) (test code = 1819) 100.0 [id number] 11:15:25 Test Item Value Reference Range Interpretation Comments PROCALCITONIN (BEAKER) (test code 0.05 ng/mL <0.05 H = 3036) SEPSIS RISK (ng/mL)Low: 0.05-0.50Intermediate: 0.51-2.00High: >=2.01HIGH SENSITIVITY TROPONIN [id number] 11:10:59 Test Item Value Reference Range Interpretation Comments HIGH SENSITIVITY 139 pg/ml See_Comment H [Automated message] TROPONIN I (test code The sy stem which = [id number]) generated this result transmitted ref erence range: <=17. Th e reference range was not used to int erpret this result as normal/abnormal . [employer] ID - JSThe BREAKFAST HOSTESS STAT High Sensitivity Troponin-I results should be used in conjunctionwith other diagnostic information such as ECG, clinical observations and information, and patient symptoms to aid in the diagnosis of [facility].XR CHEST 1 VIEW PORTABLE / [id number] 10:47:01 [facility] 1975 Sex: FCLINICAL HISTORY: desaturationTECHNIQUE: 1 view of the chest.COMPARISON: 10/29/2022IMPRESSION:ETT no longer seen. New feeding tube below the diaphragm. Right centralline remains in the right atrium. There are mildly increased bilaterallower lung airspace opacities with blunting of both costophrenic angles.The cardiomediastinal silhouette is magnified by technique.Electronically Signed By: Yeyo Mills10/30/2022 10:49 CDTWorkstation Name: [id number] BRAIN WITHOUT IV [id number] 09:21:03 [facility] 1975 Sex: FCT [...] Signed By: Luís Mclain10/30/2022 09:23 CDTWorkstation Name: [id number] 04:21:01 Test Item Value Reference Range Interpretation Comments PHOSPHORUS (BEAKER) (test code = 3.2 mg/dL 2.3-4.7 604) [employer] ID - EMBASIC METABOLIC [id number] 04:21:00 Test Item Value Reference Range Interpretation [...] not appl icable for dialysis patien ts [employer] ID - [id number] 04:21:00 Test Item Value Reference Range Interpretation Comments MAGNESIUM (BEAKER) (test code = 1.7 mg/dL 1.6-2.6 627) [employer] ID - EMCBC W/PLT COUNT & AUTO [id number] 03:30:03 Test Item Value Reference Range Interpretation [...] 0.00-1.00 PERCENT (BEAKER) (test code = 2801) [id number] 00:34:48 Test Item Value Reference Range Interpretation Comments SODIUM (BEAKER) (test code = 381) 137 meq/L 136-145 [employer] ID - ADMINXR ABDOMEN/KUB 1 VIEW [id number] 18:55:43 [facility] : 1975 Sex: [...] Signed By: Mo Soares10/29/2022 18:57 CDTWorkstation Name: [id number] 2022-10-29 18:31:20 Test Item Value Reference Range Interpretation Comments SODIUM (BEAKER) (test code = 381) 138 meq/L 136-145 [employer] ID - ADMINCreatinine, random [id number] 15:21:04 Test Item Value Reference Range Interpretation Comments Creatinine, Ur 24.5 mg/dL (test code = 2161-8) SUE (test code = Reference Range: No SUE) NormalsOperator ID - ADMIN [facility] HospitalCreatinine, random [id number] 15:21:04 Test Item Value Reference Range Interpretation Comments Creatinine, Ur 24.5 mg/dL (test code = 2161-8) SUE (test code = Reference Range: No SUE) NormalsOperator ID - ADMIN [facility] HospitalCREATININE, RANDOM [id number] 15:21:04 Test Item Value Reference Range Interpretation Comments CREATININE URINE (BEAKER) (test 24.5 mg/dL code = 375) Reference Range: No NormalsOperator ID - ADMINRapid drug screen, [id number] 14:06:15 Test Item Value Reference Range Interpretation Comments Barbiturate Screen Negative Negative (test code = 64856-6) Benzodiazepine Screen Negative Negative (test code = 26638-6) Cocaine (Metab.) Negative Negative Screen (test code = 3397-7) Methadone Screen (test Negative Negative code = 60243-9) Opiate Screen (test Negative Negative code = 10229-7) Cannabinoid Screen Negative Negative (test code = 14705-4) Amph/Methamph Screen Positive Negative A (test code = 59057-6) Phencyclidine Screen Negative Negative (test code = 54640-1) pH, UA (test code = 6.0 5.0-8.0 5803-2) SUE (test code = SUE) DRUG CUTOFF CONC.Cocaine 300 ng/mL Cannabinoid 50 ng/mLBenzodiazepine 200 ng/mLBarbiturate 200 ng/mLPhencyclidine 25 ng/mLOpiate 300 ng/mLMethadone 300 ng/mLAmphetamine/ 1000 ng/mL Methamphetamine This assay provides an unconfirmed qualitative test result for the clinical management of patients in emergency situations. Chain of custody not maintained. Some asha-vzs-gjnulhk medications, as well as adulterants, may cause inaccurate results. Clinical correlation should be applied. A more comprehensive drug screen or confirmation of a detected drug may be performed upon request.[employer] ID - JSOperator ID - [auto] Lab Interpretation Abnormal (test code = 82874-3) [facility] HospitalRapid drug screen, [id number] 14:06:15 Test Item Value Reference Range Interpretation Comments Barbiturate Screen Negative Negative (test code = 47148-1) Benzodiazepine Screen Negative Negative (test code = 51159-3) Cocaine (Metab.) Negative Negative Screen (test code = 3397-7) Methadone Screen (test Negative Negative code = 95060-3) Opiate Screen (test Negative Negative code = 40970-7) Cannabinoid Screen Negative Negative (test code = 89865-5) Amph/Methamph Screen Positive Negative A (test code = 07876-2) Phencyclidine Screen Negative Negative (test code = 63934-1) pH, UA (test code = 6.0 5.0-8.0 5803-2) SUE (test code = SUE) DRUG CUTOFF CONC.Cocaine 300 ng/mL Cannabinoid 50 ng/mLBenzodiazepine 200 ng/mLBarbiturate 200 ng/mLPhencyclidine 25 ng/mLOpiate 300 ng/mLMethadone 300 ng/mLAmphetamine/ 1000 ng/mL Methamphetamine This assay provides an unconfirmed qualitative test result for the clinical management of patients in emergency situations. Chain of custody not maintained. Some cbou-klo-jnuqgta medications, as well as adulterants, may cause inaccurate results. Clinical correlation should be applied. A more comprehensive drug screen or confirmation of a detected drug may be performed upon request.[employer] ID - JSOperator ID - [auto] Lab Interpretation Abnormal (test code = 41920-2) [facility] HospitalR[facility]ID DRUG SCREEN, [id number] 14:06:15 Test Item Value Reference Range Interpretation [...] Negative (test code = 608) PH UA ([employer]) (test code = 467) 6.0 5.0-8.0 DRUG CUTOFF CONC.Cocaine 300 ng/mL Cannabinoid 50 ng/mLBenzodiazepine 200 ng/mLBarbiturate 200 ng/mLPhencyclidine 25 ng/mLOpiate 300 ng/mLMethadone 300 ng/mLAmphetamine/ 1000 ng/mL MethamphetamineThisassay provides an unconfirmed qualitative test result for the clinical management of patients in emergency situations. Chain of custody not maintained. Some wxzf-uuj-hystpqv medications, as well as adulterants, may cause inaccurate results. Clinical correlation should be applied. A more comprehensive drug screen or confirmation of a detected drug may be performed upon request.[employer] ID - JSOperatorID - [auto] HEMOGLOBIN [id number] 13:23:17 Test Item Value Reference Range Interpretation Comments HEMOGLOBIN A1C 4.5 % See_Comment [Automated m essage] ELECTROPHORESIS ([employer]) The system which (test code = 3811) generated this result transmitted ref erence range: <=5.6%. The reference range was not used to int erpret this result as normal/abnormal . "The A1c is measured using a NGSP-certified method. HbA1c value equal to or greater than 6.5% as thediagnosis cutoff for diabetes. An HbA1c value of 5.7- 6.4% indicates increased risk for diabetes (prediabetes)."[employer] Feeder ID - ADMOperator ID - ADMCTA [id number] 13:16:45CT BRAIN WITHOUT IV CONTRAST, CTA CAROTID, CTA BRAINBRAIN CT WITHOUT CONTRAST INDICATION: Unlisted Reason for Exam, intraparenchymal hematoma COMPARISON: None TECHNIQUE:Rapid acquisition spiral images were obtained between the aortic archand the cranial vertex during intravenous contrast infusion toreconstruct axial images and angiographic 3D maximum intensityprojections (MIP). 3-D volumetric reformatted images were created at [employer] workstation. Precontrast images of the brain were [...] opacities, which mayrepresent atelectasis, pneumonia or pulmonary edema.[facility] HospitalCTA [id number] 13:16:45CT BRAIN WITHOUT IV CONTRAST, CTA CAROTID, CTA BRAINBRAIN CT WITHOUT CONTRAST INDICATION: Unlisted Reason for Exam, intraparenchymal hematoma COMPARISON: None TECHNIQUE:Rapid acquisition spiral images were obtained between the aortic archand the cranial vertex during intravenous contrast infusion toreconstruct axial images and angiographic 3D maximum intensityprojections (MIP). 3-D volumetric reformatted images were created at [employer] workstation. Precontrast images of the brain were [...] opacities, which mayrepresent atelectasis, pneumonia or pulmonary edema.[facility] HospitalCTA [id number] 13:16:45 [facility] 1975 Sex: FCT BRAIN WITHOUT IV CONTRAST, CTA CAROTID, CTA BRAINBRAIN CT WITHOUT CONTRASTINDICATION: Unlisted Reason for Exam, intraparenchymal hematomaCOMPARISON: NoneTECHNIQUE:Rapid acquisition spiral images were obtained between the aortic archand the cranial vertex during intravenous contrast infusion toreconstruct axial images and angiographic 3D maximum intensityprojections (MIP). 3-D volumetric reformatted images were created at [employer] workstation. Precontrast images of the brain were [...] Signed By: Luís Mclain10/29/2022 13:18 CDTWorkstation Name: [id number] BRAIN WITHOUT IV [id number] 13:16:45 [facility] : 1975 Sex: FCT BRAIN WITHOUT IV CONTRAST, CTA CAROTID, CTA BRAINBRAIN CT WITHOUT CONTRASTINDICATION: Unlisted Reason for Exam, intraparenchymal hematomaCOMPARISON: NoneTECHNIQUE:Rapid acquisition spiral images were obtained between the aortic archand the cranial vertex during intravenous contrast infusion toreconstruct axial images and angiographic 3D maximum intensityprojections (MIP). 3-D volumetric reformatted images were created at [employer] workstation. Precontrast images of the brain were [...] Signed By: Luís Mclain10/29/2022 13:18 CDTWorkstation Name: [id number] 13:16:[address] : 1975 Sex: FCT BRAIN WITHOUT IV CONTRAST, CTA CAROTID, CTA BRAINBRAIN CT WITHOUT CONTRASTINDICATION: Unlisted Reasonfor Exam, intraparenchymal hematomaCOMPARISON: NoneTECHNIQUE:Rapid acquisition spiral images were obtained between the aortic archand the cranial vertex during intravenous contrast infusion toreconstruct axial images and angiographic 3D maximum intensityprojections (MIP). 3-D volumetric reformatted images were created at [employer] workstation. Precontrast images of the brain were [...] Signed By: Luís Mclain10/29/2022 13:18 CDTWorkstation Name: [id number], QUANTITATIVE, [id number] 13:15:24 Test Item Value Reference Range Interpretation Comments GONADOTROPIN, CHORIONIC (HCG) QUANT < mIU/mL 0-10 (BEAKER) (test code = 649) Non- Females: <10 mIU/mL Females: Gestation Age Reference Range(mIU/mL) 0.2-1 Week 5-50 1-2 Weeks 50-500 2-3 Weeks 100-5,000 3-4 Weeks 500-10,000 4-5 Weeks 1,000-50,000 5-6 Weeks 10,000-100,000 6-8 Weeks 15,000- 200,000 2-3 Months 10,000-100,000 [employer] ID - Jorgelity, [id number] 13:07:55 Test Item Value Reference Range Interpretation Comments Osmolality, Ur (test code 529 See_Comment [ Automated message] = 7172-9) The system [employer] generated this result transmitted ref erence range: 50-1,200 mOsm/kg mOsm/kg . The reference range was not used to int erpret this result as normal/abnormal . Lab Interpretation (test Normal code = 53698-3) [facility] HospitalOsmolality, [id number] 13:07:55 Test Item Value Reference Range Interpretation Comments Osmolality, Ur (test code 529 See_Comment [ Automated message] = 2695-5) The system [employer] generated this result transmitted ref erence range: 50-1,200 mOsm/kg mOsm/kg . The reference range was not used to int erpret this result as normal/abnormal . Lab Interpretation (test Normal code = 36485-5) [facility] HospitalOSMOLALITY, [id number] 13:07:55 Test Item Value Reference Range Interpretation Comments OSMOLALITY URINE 529 mOsm/kg See_Comment [Automated message] (BEAKER) (test code = The sy stem which 614) generated this result transmitted ref erence range: 50-1,200 mOsm/kg. The reference range was not used to int erpret this result as normal/abnormal . Urea Nitrogen, random [id number] 12:57:04 Test Item Value Reference Range Interpretation Comments Urea Nitrogen, Ur 186 mg/dL (test code = 3095-7) SUE (test code = Reference Range: No SUE) NormalsOperator ID - [facility] CenterUrea Nitrogen, random [id number] 12:57:04 Test Item Value Reference Range Interpretation Comments Urea Nitrogen, Ur 186 mg/dL (test code = 3095-7) SUE (test code = Reference Range: No SUE) NormalsOperator ID - [facility] CenterUREA NITROGEN, RANDOM [id number] 12:57:04 Test Item Value Reference Range Interpretation Comments UREA NITROGEN URINE (BEAKER) (test 186 mg/dL code = 538) Reference Range: No NormalsOperator ID - Sodium, random [id number] 12:57:03 Test Item Value Reference Range Interpretation Comments Sodium Urine (test 155 meq/L code = 2955-3) SUE (test code = Reference Range: No SUE) NormalsOperator ID - [facility] Hospitalodium, random [id number] 12:57:03 Test Item Value Reference Range Interpretation Comments Sodium Urine (test 155 meq/L code = 2955-3) SUE (test code = Reference Range: No SUE) NormalsOperator ID - [facility] HospitalODIUM, RANDOM [id number] 12:57:03 Test Item Value Reference Range Interpretation Comments SODIUM URINE (BEAKER) (test code = 155 meq/L 243) Reference Range: No NormalsOperator ID - JSOSMOLALITY, [id number] 12:52:21 Test Item Value Reference Range Interpretation Comments OSMOLALITY, SERUM (BEAKER) (test 290 mOsm/kg 275-295 code = 615) [id number] 12:52:14 Test Item Value Reference Range Interpretation Comments SODIUM (BEAKER) (test code = 381) 140 meq/L 136-145 [employer] ID - MARCOPregnancy Screen, [id number] 09:52:55 Test Item Value Reference Range Interpretation Comments Preg Test, Ur (test code = 2112-1) Negative Negative Lab Interpretation (test code = Normal 37002-4) [facility] HospitalPregnancy Screen, [id number] 09:52:55 Test Item Value Reference Range Interpretation Comments Preg Test, Ur (test code = 2112-1) Negative Negative Lab Interpretation (test code = Normal 09750-0) [facility] HospitalPREANCY SCREEN, [id number] 09:52:55 Test Item Value Reference Range Interpretation Comments TEST URINE (BEAKER) (test Negative Negative code = 583) BLOOD GAS, [id number] 08:02:40 Test Item Value Reference Range Interpretation [...] (BEAKER) (test code = 1819) 40.0 T4, [id number] 06:13:37 Test Item Value Reference Range Interpretation Comments FREE T4 (BEAKER) (test code = 655) 0.90 ng/dL 0.70-1.48 [employer] ID - ADMINTSH/FREE T4 IF [id number] 05:34:42 Test Item Value Reference Range Interpretation Comments THYROID STIMULATING HORMONE 6.331 uIU/mL 0.350-4.940 H (BEAKER) (test code = 772) [employer] ID - [id number] 05:26:57 Test Item Value Reference Range Interpretation Comments MAGNESIUM (BEAKER) (test code = 1.8 mg/dL 1.6-2.6 627) [employer] ID - [id number] 05:26:57 Test Item Value Reference Range Interpretation Comments PHOSPHORUS (BEAKER) (test code = 3.0 mg/dL 2.3-4.7 604) [employer] ID - MARCOCOMPREHENSIVE METABOLIC [id number] 05:26:56 Test Item Value Reference Range Interpretation [...] not appl icable for dialysis patien ts [employer]earth Feeder ID - MARCOXR CHEST 1 VIEW PORTABLE / [id number] 05:03:50 [facility] Irineo : [...] Signed By: Jaziel Monte10/29/2022 05:05 CDTWorkstation Name: [id number] 04:56:04 Test Item Value Reference Range Interpretation Comments PARTIAL THROMBOPLASTIN TIME 30.4 seconds 22.5-36.0 (WESLEY) (test code = 760) PROTHROMBIN TIME/[id number] 04:55:22 Test Item Value Reference Range Interpretation Comments PROTIME (BEAKER) 13.6 seconds 11.9-14.2 (test code = 759) INR (BEAKER) (test 1.06 See_Comment [Automat ed message] code = 370) The system Miaopai generated this result transmitted ref erence range: <=5.90. The reference range was not used to int erpret this result as normal/abnormal . RECOMMENDED COUMADIN/WARFARIN INR THERAPY RANGESSTANDARD DOSE: 2.0 - 3.0 Includes: PROPHYLAXIS for venous thrombosis, systemic embolization; TREATMENT for venous thrombosis and/or pulmonary embolus.HIGH RISK: Target INR is 2.5-3.5 for patients with mechanical heart valves.CBC W/PLT COUNT & AUTO [id number] 04:50:18 Test Item Value Reference Range Interpretation [...] (BEAKER) (test code = 2801) BLOOD GAS, [id number] 04:03:20 Test Item Value Reference Range Interpretation [...] (BEAKER) (test code = 1819) 60.0 CALCIUM, [id number] 03:59:22 Test Item Value Reference Range Interpretation Comments CALCIUM IONIZED (BEAKER) (test 1.09 mmol/L 1.12-1.27 L code = 698) PH, BLOOD (BEAKER) (test code = 7.33 1810) Central [id number] 03:47:51Murray Elise NP 10/29/2022 3:48 AMCentral Line [...] to verify the correct patient, procedure, equipment, community support specialist and site/side marked as required.Indications:vascular [...] NoneComplications: NoneType of anesthesia: NoneGrafts or Implants: NoneCH[facility] CenterCentral [id number] 03:47:51Murray Elise NP 10/29/2022 3:48 AMCentral Line [...] to verify the correct patient, procedure, equipment, community support specialist and site/side marked as required.Indications:vascular [...] NoneComplications: NoneType of anesthesia: NoneGrafts or Implants: NoneK[facility] Foundation HospitalInsert Arterial [id number] 03:46:45Murray Elise NP 10/29/2022 3:47 AMInsert Arterial [...] to verify the correct patient, procedure, equipment, community support specialist and site/side marked as required.Preparation: Patient was prepped and draped in the usual sterile fashion.Indications: multiple ABGs and hemodynamic monitoringLocation: right radial Anesthesia:Local Anesthetic: lidocaine 2% without epinephrineAllen's test normal: yesNeedle gauge: 18Seldinger technique: Seldinger technique usedNumber of attempts: 1Post-procedure: line sutured and dressing appliedPost-procedure CMS: normalPatienttolerance: patient tolerated the procedure well with no immediate complicationsCHI [facility] Insert Arterial [id number] 03:46:45Murray Elise NP 10/29/2022 3:47 AMInsert Arterial [...] to verify the correct patient, procedure, equipment, community support specialist and site/side marked as required.Preparation: Patient was prepped and draped in the usual sterile fashion.Indications: multiple ABGs and hemodynamic monitoringLocation: right radial Anesthesia:Local Anesthetic: lidocaine 2% without epinephrineAllen's test normal: yesNeedle gauge: 18Seldinger technique: Seldinger technique usedNumber of attempts: 1Post-procedure: line sutured and dressing appliedPost-procedure CMS: normalPatienttolerance: patient tolerated the procedure well with no immediate complicationsKaiser Foundation Hospital DHC-[id number] 00:00:00Ordered by an unspecified provider.[facility] HospitalEKG-[id number] 00:00:00Ordered by an unspecified provider. [facility] HospitalFungus culture + [id number] 08:28:10 Test Item Value Reference Range Interpretation Comments Result (test code = No fungus isolated in 6463-4) 28 days Fungus Smear (test No fungal elements seen code = 1406) [facility] HospitalFungus culture + [id number] 08:28:10 Test Item Value Reference Range Interpretation Comments Result (test code = No fungus isolated in 6463-4) 28 days Fungus Smear (test No fungal elements seen code = 1406) [facility] HospitalFungus culture + [id number] 08:28:10 Test Item Value Reference Range Interpretation Comments Result (test code = No fungus isolated in 6463-4) 28 days Fungus Smear (test No fungal elements seen code = 1406) [facility] HospitalFUNGUS CULTURE + [id number] 08:28:10 Test Item Value Reference Range Interpretation Comments CULTURE (BEAKER) (test No fungus isolated in code = 1095) 28 days FUNGUS SMEAR (BEAKER) No fungal elements seen (test code = 1406) [id number] 05:54:28 Test Item Value Reference Range Interpretation Comments MAGNESIUM (BEAKER) (test code = 1.9 mg/dL 1.6-2.6 627) [employer] ID - [id number] 05:54:28 Test Item Value Reference Range Interpretation Comments PHOSPHORUS (BEAKER) (test code = 5.2 mg/dL 2.3-4.7 H 604) [employer] ID - MARCOBASIC METABOLIC [id number] 05:54:27 Test Item Value Reference Range Interpretation [...] not appl icable for dialysis patien ts [employer]earth [employer] ID - MARCOCBC W/PLT COUNT & AUTO [id number] 05:42:51 Test Item Value Reference Range Interpretation [...] PERCENT (BEAKER) (test code = 2801) CALCIUM, [id number] 05:36:04 Test Item Value Reference Range Interpretation Comments CALCIUM IONIZED (BEAKER) (test 1.12 mmol/L 1.12-1.27 code = 698) PH, BLOOD (BEAKER) (test code = 7.42 1810) Anaerobic [id number] 02:03:45 Test Item Value Reference Range Interpretation Comments Result (test code = No anaerobes isolated 6463-4) [facility] [id number] 02:03:45 Test Item Value Reference Range Interpretation Comments Result (test code = No anaerobes isolated 6463-4) [facility] [id number] 02:03:45 Test Item Value Reference Range Interpretation Comments Result (test code = No anaerobes isolated 6463-4) [facility] [id number] 02:03:45 Test Item Value Reference Range Interpretation Comments CULTURE (BEAKER) (test No anaerobes isolated code = 1095) STD Panel - CT/GC [id number] 17:37:44 Test Item Value Reference Interpretation Comments Range C. trachomatis NOT DETECTED RNA, TMA (test code = 1308155) N. gonorrhoeae NOT DETECTED REFERENCE RA NGE: NOT RNA, TMA (test DETECTED Meth odology: code = 3858435) Transcriptio n Mediated Amplification ( TMA)to detect RNA. The analytical perf ormance characteristics of thisassay, when used to test SurePat h(TM) specimens haveb een determined by [employer]. Th e modificationsha ve not been cleared or approved by the FDA. This assayhas b een validated pursu ant to the CLIA regula tions andis used for clinical purpos es. For additional information, pl ease refer tohttps://educa tion.[employer]val[employer] estKinems [employer] Gamess. com/faq /OLI840(This li nk is being provided for informational/e ducatio nal purposes on ly.) SUE (test code = Performing Lab SUE) *QDID [facility] [address] [place] [address] Sylvie Gresham MD, PhD [facility] Panel - CT/GC [id number] 17:37:44 Test Item Value Reference Interpretation Comments Range C. trachomatis NOT DETECTED RNA, TMA (test code = 3548426) N. gonorrhoeae NOT DETECTED REFERENCE RA NGE: NOT RNA, TMA (test DETECTED Meth odology: code = 9786508) Transcriptio n Mediated Amplification ( TMA)to detect RNA. The analytical perf ormance characteristics of thisassay, when used to test SurePat h(TM) specimens haveb een determined by [facility]. Th e modificationsha ve not been cleared or approved by the FDA. This assayhas b een validated pursu ant to the CLIA regula tions andis used for clinical purpos es. For additional information, pl ease refer tohttps://[employer].com. [employer]/faq /BSV927(This li nk is being provided for informational/e ducatio nal purposes on ly.) SUE (test code = Performing Lab SUE) *[facility]DID [facility] [address] [address] Sylvie Gresham MD, PhD [facility] Panel - CT/GC [id number] 17:37:44 Test Item Value Reference Interpretation Comments Range C. trachomatis NOT DETECTED RNA, TMA (test code = 9115263) N. gonorrhoeae NOT DETECTED REFERENCE RA NGE: NOT RNA, TMA (test DETECTED Meth odology: code = 2825385) Transcriptio n Mediated Amplification ( TMA)to detect RNA. The analytical perf ormance characteristics of thisassay, when used to test SurePat h(TM) specimens haveb een determined by [facility]. Th e modificationsha ve not been cleared or approved by the FDA. This assayhas b een validated pursu ant to the CLIA regula tions andis used for clinical purpos es. For additional information, pl ease refer tohttps://[employer]/faq /LZG815(This li nk is being provided for informational/e ducatio nal purposes on ly.) SUE (test code = Performing Lab SUE) *QDID [facility] [address] [place] [address] Sylvie Gresham MD, PhD [facility] HospitalBASIC METABOLIC [id number] 16:40:09 Test Item Value Reference Range Interpretation [...] not appl icable for dialysis patien ts [employer] ID - BSOsmolality, [id number] 12:43:16 Test Item Value Reference Range Interpretation Comments Osmolality, Ur (test code 245 See_Comment [ Automated message] = 2695-5) The system Miaopai generated this result transmitted ref erence range: 50-1,200 mOsm/kg mOsm/kg . The reference range was not used to int erpret this result as normal/abnormal . Lab Interpretation (test Normal code = 05769-5) [facility] HospitalOSMOLALITY, [id number] 12:43:16 Test Item Value Reference Range Interpretation Comments OSMOLALITY URINE 245 mOsm/kg See_Comment [Automated message] (BEAKER) (test code = The sy stem which 614) generated this result transmitted ref erence range: 50-1,200 mOsm/kg. The reference range was not used to int erpret this result as normal/abnormal . Sodium, random [id number] 11:48:27 Test Item Value Reference Range Interpretation Comments Sodium Urine (test 82 meq/L code = 2955-3) SUE (test code = Reference Range: No SUE) NormalsOperator ID - ADMIN [facility] HospitalUrea Nitrogen, random [id number] 11:48:27 Test Item Value Reference Range Interpretation Comments Urea Nitrogen, Ur 121 mg/dL (test code = 3095-7) SUE (test code = Reference Range: No SUE) NormalsOperator ID - ADMIN [facility] HospitalODIUM, RANDOM [id number] 11:48:27 Test Item Value Reference Range Interpretation Comments SODIUM URINE (BEAKER) (test code = 82 meq/L 243) Reference Range: No NormalsOperator ID - ADMINUREA NITROGEN, RANDOM URINE 2022-08-10 11:48:27 Test Item Value Reference Range Interpretation Comments UREA NITROGEN URINE (BEAKER) (test 121 mg/dL code = 538) Reference Range: No NormalsOperator ID - ADMINCreatinine, random [id number] 11:48:26 Test Item Value Reference Range Interpretation Comments Creatinine, Ur 20.9 mg/dL (test code = 2161-8) SUE (test code = Reference Range: No SUE) NormalsOperator ID - ADMIN [facility] HospitalCREATININE, RANDOM [id number] 11:48:26 Test Item Value Reference Range Interpretation Comments CREATININE URINE (BEAKER) (test 20.9 mg/dL code = 375) Reference Range: No NormalsOperator ID - ADMINWound culture + gram stain 2022-08-10 11:24:49 Test Item Value Reference Range Interpretation Comments Result (test code = No growth 6463-4) Gram Stain Result <1+ gram positive cocci (test code = 1123) in pairs [facility] HospitalWound culture + gram [id number] 11:24:49 Test Item Value Reference Range Interpretation Comments Result (test code = No growth 6463-4) Gram Stain Result <1+ gram positive cocci (test code = 1123) in pairs [facility] HospitalWound culture + gram [id number] 11:24:49 Test Item Value Reference Range Interpretation Comments Result (test code = No growth 6463-4) Gram Stain Result <1+ gram positive cocci (test code = 1123) in pairs [facility] HospitalWOUND CULTURE + GRAM [id number] 11:24:49 Test Item Value Reference Range Interpretation Comments CULTURE (BEAKER) (test No growth code = 1095) GRAM STAIN RESULT 4+ WBCs (BEAKER) (test code = 1123) GRAM STAIN RESULT <1+ gram positive cocci (BEAKER) (test code = in pairs 77150) T4, [id number] 11:12:44 Test Item Value Reference Range Interpretation Comments FREE T4 (BEAKER) (test code = 655) 1.25 ng/dL 0.70-1.48 [employer]earth Feeder ID - AAHAMIDOSMOLALITY, [id number] 11:11:51 Test Item Value Reference Range Interpretation Comments OSMOLALITY, SERUM (BEAKER) (test 271 mOsm/kg 275-295 L code = 615) TSH/FREE T4 IF [id number] 10:36:27 Test Item Value Reference Range Interpretation Comments THYROID STIMULATING HORMONE 10.385 uIU/mL 0.350-4.940 H (BEAKER) (test code = 772) Hearth Feeder ID - [id number] 10:30:32 Test Item Value Reference Range Interpretation Comments CORTISOL, TOTAL (BEAKER) (test 11.9 ug/dL 3.7-19.4 code = 2755) Hearth Feeder ID - AAHAMIDCT, DRAINAGE, SOFT TISSUE FLUID [id number] 09:56:00Reason for exam:->tubo-ovarian abscess [facility] 1975 Sex: FFINAL [...] lower quadrant fluid collection. Signed: Nilo Whiteside [facility] Verified Date/Time: 08/10/2022 09:56:28 Reading Location: [address] Neuro Reading Room RADIOLOGIC GUIDANCE & INTERP/[id number] 09:56:00FINAL REPORT CT guided fluid aspiration Clinical [...] Whiteside Verified Date/Time: 08/10/2022 09:56:28 Reading Location: [address] Neuro Reading Room [facility]/[id number] 09:56:00FINAL REPORT CT guided fluid aspiration Clinical [...] Whiteside Verified Date/Time: 08/10/2022 09:56:28 Reading Location: [address] Neuro Reading Room [facility] HospitalTreadmill tolerance(Non-Nuclear Treadmill)2022-08-10 08:12:31 Protocol Name Lexiscan Time [...] 1:30:42 PMConfirmed by Kelton Stapleton ([id number]) on :12:24 [facility] HospitalTreadmill tolerance(Non- Nuclear Treadmill)2022-08-10 08:12:31Protocol Name Lexiscan Time [...] 1:30:42 PMConfirmed by Kelton Stapleton ([id number]) on :12:24 [facility] HospitalBASIC METABOLIC [id number] 06:16:41 Test Item Value Reference Range Interpretation [...] not appl icable for dialysis patien ts [employer]earth Feeder ID - ADMINSpecimen slightly [id number] 06:16:41 Test Item Value Reference Range Interpretation Comments MAGNESIUM (BEAKER) 1.9 mg/dL 1.6-2.6 Specimen slightly (test code = 627) hemolyzed [employer] Feeder ID - ADMINCBC (HEMOGRAM ONLY)2022-08-10 05:54:45 Test [...] 0-0 CELLS (BEAKER) (test code = 413) [id number] 04:19:50 Test Item Value Reference Range Interpretation Comments MAGNESIUM (BEAKER) (test code = 1.3 mg/dL 1.6-2.6 L 627) Hearth Feeder ID - MMBASIC METABOLIC [id number] 04:19:50 Test Item Value Reference Range Interpretation [...] not appl icable for dialysis patien ts [employer] Feeder ID - MMSpecimen slightly ictericCBC (HEMOGRAM ONLY)2022-08-09 [...] (BEAKER) (test code = 413) BASIC METABOLIC [id number] 06:27:34 Test Item Value Reference Range Interpretation [...] not appl icable for dialysis patien ts [employer] Feeder ID - DAMIÁN WSpecimen slightly ictericB-TYPE NATRIURETIC FACTOR (BNP) 2022-08-08 05:56:50 Test Item Value Reference Range Interpretation Comments B-TYPE NATRIURETIC PEPTIDE (BEAKER) 202 pg/mL 0-100 H (test code = 700) Hearth Feeder ID - BSCBC (HEMOGRAM ONLY)2022-08-08 05:36:13 Test [...] (BEAKER) (test code = 413) BASIC METABOLIC [id number] 05:39:11 Test Item Value Reference Range Interpretation [...] not appl icable for dialysis patien ts [employer] ID - ADMINSpecimen slightly ictericCBC (HEMOGRAM ONLY)2022-08-07 [...] 0-0 (BEAKER) (test code = 413) CT, [id number] 07:32:00Unlisted Reason for Exam - Click Yes and Enter Reason Below->NoProtocol Please Specify:->Standard ProtocolWill this procedure require oral contrast?->No [facility] : 1975 [...] in size from 07/30/2022. Signed: Kam Vigil Verified Date/Time: 08/06/2022 07:32:46 Reading Location: [facility] Diagnostic Imaging Reading Room - [place] [address] ABDOMEN/PELVIS WITH IV CONTRAST Standard [id number] 07:32:00FINAL REPORT CT abdomen and pelvis with [...] in size from 07/30/2022. Signed: Kam Vigil Verified Date/Time: 08/06/2022 07:32:46 Reading Location: [facility] Diagnostic Imaging Reading Room - [place] [address] [facility] HospitalCT [facility]PELVIS WITH IV CONTRAST Standard [id number] 07:32:00FINAL REPORT CT abdomen and pelvis with contrast History: Tubo-ovarian abscess C omparison: none Technique: serial axial imaging was performed [...] Vigil MDReport Verified Date/Time: 08/06/2022 07:32:46 Reading Loc ation: [facility] Diagnostic Imaging Reading Room - [place] [address] [address] [facility] Screen, [id number] 21:59:05 Test Item Value Reference Range Interpretation Comments Preg Test, Ur (test code = 2112-1) Negative Negative Lab Interpretation (test code = Normal 61329-3) [facility] HospitalPREGNANCY SCREEN, [id number] 21:59:05 Test Item Value Reference Range Interpretation [...] CONCENTRATION Adequate (CELLAVISION)(BEAKER) (test code = 3438) Hearth Feeder ID - Salena comments: Slide comments:BASIC METABOLIC [...] not appl icable for dialysis patien ts [employer]earth Feeder ID - ADMINSpecimen slightly ictericPROTHROMBIN TIME/[id number] 21:25:45 Test Item Value Reference Range Interpretation [...] mechanical heart valves.CBC W/PLT COUNT & AUTO [id number] 21:20:49 Test Item Value Reference Range Interpretation [...] (BEAKER) (test code = 413) Transthoracic echo [id number] 16:18:18Ejection FractionSLEH ECHO HEARTLAB MKCKESSON [facility] HospitalTransthoracic echo [id number] 16:18:18Ejection FractionSLEH ECHO HEARTLAB MKTOWN[facility]ENTERON [facility] HospitalTransthoracic echo [id number] 16:18:18Ejection FractionSLEH ECHO HEARTLAB MKCKESSON [facility] HospitalBASIC METABOLIC PANEL 2022-08-03 05:26:56 Test Item Value [...] not appl icable for dialysis patien ts Hearth Feeder ID - MMSpecimen slightly ictericCBC (HEMOGRAM ONLY)2022-08-03 [...] CONCENTRATION Decreased (CELLAVISION)(BEAKER) (test code = 3438) Hearth Feeder ID - Salena comments: Slide comments:CBC W/PLT COUNT & AUTO [id number] 14:52:12 Test Item Value Reference Range Interpretation [...] (BEAKER) (test code = 413) BASIC METABOLIC [id number] 13:40:34 Test Item Value Reference Range Interpretation [...] not appl icable for dialysis patien ts [employer]earth Feeder ID - ADMINSpecimen moderately ictericMYOCARD IMAGING, MULTI, PHARM, [id number] 15:12:00Unlisted Reason for Exam - Click Yes and Enter Reason Below->NoCH[facility] : 1975 Sex: FFINAL REPORT PROCEDURE: MYOCARDIAL PERFUSION SPECT IMAGING (Rest/Stress)CPT CODE: 15163 INDICATION: Cardiac screening, high CAD risk CARDIOVASCULAR [...] Marilyn Cerna MDReport Verified Date/Time: 08/01/2022 15:12:23 NM myocardial perfusion SPECT, pharm(Lexiscan)2022-08-01 15:12:00FINAL REPORT PROCEDURE: MYOCARDIAL PERFUSION SPECT IMAGING (Rest/Stress)CPT CODE: 17041 INDICATION: Cardiac screening, high CAD risk CARDIOVASCULAR [...] prior study for comparison. Signed: Marilyn Cerna Verified Date/Time: 08/01/2022 15:12:23 [facility] HospitalNM [facility] S[facility], pharm(Lexiscan) 2022-08-01 15:12:00FINAL REPORT PROCEDURE: MYOCARDIAL PERFUSION SPECT IMAGING (Rest/Stress)CPT CODE: 64328 INDICATION: Cardiac screening, high CAD risk CARDIOVASCULAR [...] prior study for comparison. Signed: Marilyn Cerna MDRharhsort Verified Date/Time: 08/01/2022 15:12:23 [facility] HospitalHEMOGLOBIN [id number] 13:52:52 Test Item Value Reference Range Interpretation Comments HEMOGLOBIN A1C 5.0 % See_Comment [Automated m essage] ELECTROPHORESIS (BEAKER) The system which (test code = 3811) generated this result transmitted ref erence range: <=5.6%. The reference range was not used to int erpret this result as normal/abnormal . "The A1c is measured using a [facility]ANP-certified method. HbA1c value equal to or greater than 6.5% as thediagnosis cutoff for diabetes. An HbA1c value of 5.7- 6.4% indicates increased risk for diabetes (prediabetes)."Hearth Feeder ID - ADM (CELLAVISION MANUAL DIFF)2022-08-01 08:26:35 [...] CONCENTRATION Decreased (CELLAVISION)(BEAKER) (test code = 3438) Hearth Feeder ID - Remy Dato-onUser comments: Slide comments:CBC W/PLT COUNT & AUTO [id number] 08:26:34 Test Item Value Reference Range Interpretation [...] (BEAKER) (test code = 413) HCG, QUANTITATIVE, [id number] 05:48:18 Test Item Value Reference Range Interpretation Comments GONADOTROPIN, CHORIONIC (HCG) QUANT < mIU/mL 0-10 (BEAKER) (test code = 649) Non- Females: <10 mIU/mL Females: Gestation Age Reference Range(mIU/mL) 0.2-1 Week 5-50 1-2 Weeks 50-500 2-3 Weeks 100-5,000 3-4 Weeks 500-10,000 4-5 Weeks 1,000-50,000 5-6 Weeks 10,000-100,000 6-8 Weeks 15,000- 200,000 2-3 Months 10,000-100,000 Hearth Feeder ID Gisele VIDALESBASIC METABOLIC PANEL 2022-08-01 05:41:39 Test Item [...] not appl icable for dialysis patien ts [employer]earth Feeder ID - DAMIÁN WSpecimen moderately [id number] 05:41:38 Test Item Value Reference Range Interpretation Comments MAGNESIUM (BEAKER) (test code = 1.7 mg/dL 1.6-2.6 627) Hearth Feeder ID Gisele STEEL [id number] 05:41:38 Test Item Value Reference Range Interpretation Comments PHOSPHORUS (BEAKER) (test code = 3.0 mg/dL 2.3-4.7 604) Hearth Feeder ID - DAMIÁN WPT/[id number] 05:39:59 Test Item Value Reference Range Interpretation [...] 2.5-3.5 for patients with mechanical heart valves.LIPID [id number] 22:24:08 Test Item Value Reference Range Interpretation [...] Borderline 130-159 High 160-189 Very High >=190 Hearth Feeder ID - MAJROV368Oizykpcp ID - CNMROE027Pmvfdzyd ID - JXCMZN427Qqjbymdu slightly icteric U/S, ENDOVAGINAL (EV)2022-07-31 14:38:00Reason for exam:->[facility] 1975 Sex: FFINAL [...] follow-up imaging with ultrasound. Signed: Shauna Duran [facility] Verified Date/Time: 07/31/2022 14:38:44 U/S, [id number] 14:38:00Reason for exam:->[facility] : 1975 [...] follow-up imaging with ultrasound. Signed: Shauna Duran [facility] Verified Date/Time: 07/31/2022 14:38:44 U/S, CODY, [id number] 14:38:00 [facility] : 1975 [...] follow-up imaging with ultrasound. Signed: Shauna Duran [facility] Verified Date/Time: 07/31/2022 14:38:44 US [id number] 14:38:00FINAL REPORT TECHNIQUE: Transabdominal and transvaginal grayscale [...] follow-up imaging with ultrasound. Signed: Shauna Duran [facility] Verified Date/Time: 07/31/2022 14:38:44 [facility] HospitalUS [id number] 14:38:00FINAL REPORT TECHNIQUE: Transabdominal and transvaginal grayscale [...] Signed: Shauna Duran Verified Date/Time: 07/31/2022 14:38:44 [facility] HospitalUS [id number] 14:38:00FINAL REPORT TECHNIQUE: Transabdominal and transvaginal grayscale [...] Signed: Shauna Duran Verified Date/Time: 07/31/2022 14:38:44 [facility] HospitalUS [id number] 14:38:00FINAL REPORT TECHNIQUE: Transabdominal and transvaginal grayscale [...] follow-up imaging with ultrasound. Signed: Shauna Duran [facility] Verified Date/Time: 07/31/2022 14:38:44 [facility] HospitalUS [id number] 14:38:00FINAL REPORT TECHNIQUE: Transabdominal and transvaginal grayscale [...] Shauna Duran MDReport Verified Date/Time: 07/31/2022 14:38:44 [facility]US [id number] 14:38:00FINAL REPORT TECHNIQUE: Transabdominal and transvaginal grayscale [...] Shauna Duran MDReport Verified Date/Time: 07/31/2022 14:38:44 [facility] W/PLT COUNT & AUTO [id number] 03:57:39 Test Item Value Reference Range Interpretation [...] H PERCENT (BEAKER) (test code = 2801) [id number] 03:56:52 Test Item Value Reference Range Interpretation Comments MAGNESIUM (BEAKER) (test code = 1.5 mg/dL 1.5-3.0 627) Hearth Feeder ID - [id number] ID - [id number] ID - [id number] ID - [id number] BASIC METABOLIC [id number] 03:55:31 Test Item Value Reference Range Interpretation [...] not appl icable for dialysis patien ts Hearth Feeder ID - [id number] ID - [id number] ID - [id number] ID - ZHXL91Xojphhub ID - [id number] ID - KUFY51Bythkzeo ID - JDYB98Jydldbbe ID - LHPS14Eporailk ID - [id number] slightly zqefkmiKXTBWIPSWT7263-74-19 03:54:07 Test Item Value Reference Range Interpretation Comments PHOSPHORUS (BEAKER) (test code = 4.0 mg/dL 2.5-4.5 604) Hearth Feeder ID - [id number] 18:37:08 Test Item Value Reference Range Interpretation Comments MAGNESIUM (BEAKER) (test code = 1.6 mg/dL 1.5-3.0 627) Hearth Feeder ID - [id number] ID - [id number] ID - [id number] ID - [id number], CHEST, 1 VIEW, NON [id number] 16:51:00Reason for exam:->SOB, wheezingShould this be performed at the bedside?->Yes [facility] 1975 Sex: FFINAL [...] Carrera Verified Date/Time: 07/30/2022 16:51:52 Reading Location: [facility] Radiology Reading Room BASIC METABOLIC PANEL 2022-07-30 16:02:18 Test Item Value [...] not appl icable for dialysis patien ts Hearth Feeder ID - [id number] ID - [id number] ID - [id number] ID - [id number] ID - OMFJS924Mcwggrrp ID - IQFCR158Ijfzzwzr ID - GGQOJ217Odshdekd ID - PZTHB499Zjsgekdx ID - [id number] ID - QLCRX771Frusvmod ID - [id number] ID - [id number] TIME/INR 2022-07-30 16:00:01 Test Item Value Reference [...] mechanical heart valves.CBC W/PLT COUNT & AUTO [id number] 15:52:31 Test Item Value Reference Range Interpretation [...] PERCENT (BEAKER) (test code = 2801) TISSUE [id number] 12:09:00Surgical Pathology Report Case: [id number] Authorizing Provider: Trudy James MD Collected: 02/17/2019 1126 Ordering Location: [address] Received: 02/17/2019 1147 Service Pathologist: Angela Beach MD Specimen: Gallbladder A. GALLBLADDER, CHOLECYSTECTOMY: - CHRONIC CHOLECYSTITIS WITH CHOLELITHIASIS. Signing Pathologist Direct Phone Line: [phone] signed by Angela Beach MD on 02/19/2019 at 12:09 [id number] renal mass Gallbladder Received in formalin labeled [...] and trabeculated. Thewall measures 0.2 cm thick. Compliance Reviewer sections are submitted in A1-A2, with the inked proximal margin is A1. PA/ew Performed.[facility], Department of Pathology, [address] [place] [address], [facility], Department of Pathology, [address] [place] [address], [facility], Department of Pathology, [address] [place] [address], KRB W/PLT COUNT & AUTO [id number] 07:03:00 Test Item Value Reference Range Interpretation [...] (BEAKER) (test code = 2801) BASIC METABOLIC [id number] 06:57:00 Test Item Value Reference Range Interpretation [...] APPLICABLE FOR DIALYSIS PATIEN TS. HEPATIC FUNCTION [id number] 06:57:00 Test Item Value Reference Range Interpretation [...] (test code = 347) hemolyzed HEPATIC FUNCTION [id number] 06:57:00 Test Item Value Reference Range Interpretation [...] 72 U/L 6-55 H 347) BASIC METABOLIC [id number] 06:57:00 Test Item Value Reference Range Interpretation [...] PATIEN TS. CBC W/PLT COUNT & AUTO [id number] 06:28:00 Test Item Value Reference Range Interpretation [...] PERCENT (BEAKER) (test code = 2801) SCREEN, [id number] 07:28:00 Test Item Value Reference Range Interpretation Comments TEST URINE (BEAKER) (test Negative code = 583) [id number] 07:28:00 Test Item Value Reference Range Interpretation Comments MAGNESIUM (BEAKER) 2.0 mg/dL 1.6-2.6 Specimen moderately (test code = 627) hemolyzed [id number] 07:28:00 Test Item Value Reference Range Interpretation Comments PHOSPHORUS (BEAKER) 4.0 mg/dL 2.3-4.7 Specimen moderately (test code = 604) hemolyzed BASIC METABOLIC [id number] 07:28:00 Test Item Value Reference Range Interpretation [...] APPLICABLE FOR DIALYSIS PATIEN TS. HEPATIC FUNCTION [id number] 07:28:00 Test Item Value Reference Range Interpretation [...] Specimen moderately (test code = 347) hemolyzed [id number] 07:28:00 Test Item Value Reference Range Interpretation Comments LIPASE (BEAKER) (test code = 749) 31 U/L 8-78 CBC W/PLT COUNT & AUTO [id number] 07:10:00 Test Item Value Reference Range Interpretation [...] (BEAKER) (test code = 2801) U/S, ABDOMINAL, [id number] 23:50:00Abdomen limited area? Add comment if clarification [...] Date/Time: 02/15/2019 23:50:53 URINALYSIS W/ REFLEX URINE [id number] 22:43:00 Test Item Value Reference Range Interpretation [...] code = 516) SOURCE(BEAKER) (test code = 279) HEPATIC FUNCTION [id number] 17:03:00 Test Item Value Reference Range Interpretation [...] Specimen slightly (test code = 347) hemolyzed [id number] 16:00:00 Test Item Value Reference Range Interpretation Comments MAGNESIUM (BEAKER) 2.1 mg/dL 1.6-2.6 Specimen slightly (test code = 627) hemolyzed BASIC METABOLIC [id number] 16:00:00 Test Item Value Reference Range Interpretation [...] hemolyz ed (test code = 364) PROTHROMBIN TIME/[id number] 15:31:00 Test Item Value Reference Range Interpretation [...] is 2.5-3.5 for patients wiht mechanical heart valves.[id number] 15:31:00 Test Item Value Reference Range Interpretation Comments PARTIAL THROMBOPLASTIN TIME 31.4 seconds 22.5-36.0 (BEAKER) (test code = 760) CBC W/PLT COUNT & AUTO [id number] 15:14:00 Test Item Value Reference Range Interpretation [...] Consult Notes Date/Time Note Provider Source 2022-11-28 8437-03-54F82:23:09Associated Patrick Wallace OT [facility] 10:23:09 Order(s): CONSULT ADULT OCCUPATIONAL THERAPY OT GENERAL EVALUATIONConsult received via [employer], EMR reviewed and evaluation completed 11/28/22. Patient referred to occupational therapy for evaluation and treatment. Patient is 47 year old female with chest pain, NSTEMI. 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 85923-8Wnvryzu eeeuCV6200-02-03F88:15:28Consult noteTXT1.2.840.497047.1.13.104.2.7.2 .143156|[id number] for patient enam99240-8Titmxba rxslKH250675036Jqkvbo C Lawas [address] TxknXeyiemeqkBysndlnuxIZGN8540737496 UNPEYTLHMZVFQRJTEOKKLF8321-89-73W39: 15:281.2.840.311341.1.72.3.15|1.2.84 0.540494.1.13.104.2.7.2.727879_18983 49771 2022-11-28 9086-13-45Z03:45:00Associated Savanna Juarez PT [facility] 09:45:00 Order(s): CONSULT ADULT PHYSICAL THERAPY [...] setting of methamphetamine use), CAD c/b unspecified [place] (02/2022 per [facility]), HFpEF, hypertension, hyperlipidemia, COPD, GERD, and seizure disorder (not on medications) presenting as a transfer from [facility] for NSTEMI. Troponin peaked at 1.34 and [...] setting of methamphetamine use), CAD c/b unspecified [place] (02/2022 per [facility]where), HFpEF, hypertension, hyperlipidemia, COPD, GERD, and seizure disorder (not on medications) presenting as a transfer from [facility] for NSTEMI. Troponin peaked at 1.34 and [...] a SS house, and sisterDME: Wheel Chair g7Wcswi level of Mobility: requires assistance with transfers, requires assistance with bed mobility, uses w/c primarily, family/caregiver. Per patient, her sister puts her on the wheelchair, pushes her on the wheelchair since 2022Suspected ischemic or hemorraghic stroke:Yes, Pre-Stroke Modified Edgar Score: 4 - Moderately severe disability; unable to walk without assistance and unable to attend to own bodily needs without assistance Subjective: "My sister pushes me around"Patient/Family Goals: To go homePatient/Family verbalizes understanding of condition: Yes PAIN: denies pain before and after sessionCOMMUNICATIONPrimary Language: Jordanian Able to Verbalize needs: Yes Vision:good; no [...] 31 minTotal Treatment Time in Minutes: 33 Leticia Juarez PT, DPTUnBaylor Scott & White Medical Center – UptownRehabilitation Services A physical therapy evaluation of high [...] clinical presentation with unstable and unpredictable characteristics 97100-0Ucjrxwl nhgqEL9789-60-86G27:53:18Consult noteTXT1.2.840.519106.1.13.104.2.7.2 .116872|[id number] for patient iwav26719-1Aiyldik nhlsEW092415995Yejsom Pallera PT[address] StreetGalvestonGalvestonTXTX[address] BKIKKVCGVVSLGIQHFVTFLK4273-60-80C41: 53:181.2.840.673610.1.72.3.15|1.2.84 0.287759.1.13.104.2.7.2.727879_18983 17240 2022-11-25 7221-49-81Y08:49:18Associated PN-NEUROLOGY [facility] 18:49:18 Order(s): CONSULT NEUROLOGY STROKE [...] Units/hr IV Infusion TITRATE 6 mL/hr at 11/25/221828 600 Units/hr at 11/25/221828 ipratropium-albuteroL (DUONEB) 0.5 mg-3 mg(2.5 mg base)/3 mL nebulizer solution 3 mL 3 mL Inhalation QIDPRN nitroglycerin (NITROSTAT) sublingual tablet 0.4 mg 0.4 mg Sublingual Q5MIN PRN 0.4 mg at 11/25/22 1249 pantoprazole (PROTONIX) EC tablet 40 mg 40 mg Oral DAILY 40 mg at 11/25/22 0917 ALLERGY Allergies Allergen Reactions Aspirin Anaphylaxis Throat [...] with Dr. Rivera, Neurology Faculty Stroke pager: [phone] Shahnaz Borges, MDPGY-4, NeurologyPager: [phone] signed by Romaine Rivera MD at 11/26/2022 [...] reported) and/or communicating results to the patient/family/caregiver. 76182-7Kyedgyc wlbrKX3943367Obplnmey, Hashem1.2.840.097918.1.13.104.2.7.2. 220115PsiyywjqGghsnkZK0676-01-03M99: 21:11Consult noteTXT1.2.840.710406.1.13.104.2.7.2 .961925|0349779820OCKzcawdlkf for patient cqpp55686-8Qxapzwm cemqWPHL-XJJYBRBSHBA-WRMITMESNXFRVHZ [address] RqjnHhawhskmoZwtmfnbkoIQXL7115333695 UKHRPYNQPBLJZZXCCGSDNY9030-08-50I90: 21:111.2.840.347765.1.72.3.15|1.2.84 0.174053.1.13.104.2.7.2.727879_18956 23948 2022-11-25 0350-03-40V07:00:00Associated Analy Bonner [facility] 18:00:00 Order(s): CONSULT PS PASTORAL Filippo CARE Grass Farm Laborer visited with patient in response to consult for pastoral care and support. Patient was awake and acknowledged senior technical writer's presence. Pt was alone in room. The Pt said she was of [employer]. The PT. Expressed to the Grass Farm Laborer of some fear,about her upcomming surgery that going to be done on her heart.Pt asked the Grass Farm Laborer to pray for her and for God to give her peace. The Grass Farm Laborer provided spiritual support through prayer of healing, peace and comfort. Grass Farm Laborer provided pastoral presence, and validated feelings. Pastoral care will continue to follow up as needed. Rev.Analy Ferro [facility] Department of Pastoral CarePh: [phone]: [phone] 81955-6Tucdalo nnanTZ6202-24-68O67:31:33Consult noteTXT1.2.840.393094.1.13.104.2.7.2 .973167|[id number] for patient kzzq40128-0Wstspdx ezpuBC055925312Tfbbiyq M [address] JstlXpkeijkakVpqzpwtcpHCCY7514951429 SKIBVMXPKOVBIRNOHVSJGY0953-84-24X82: 31:331.2.840.185608.1.72.3.15|1.2.84 0.053419.1.13.104.2.7.2.727879_18956 58485 2022-11-25 9100-39-03R20:53:13Associated PED-PEDIATRICS [facility] 10:53:13 Order(s): CONSULT ALLERGY ALLERGY & IMMUNOLOGY CONSULT NOTEDATE OF SERVICE: 11/25/22REASON FOR CONSULT: Aspirin allergyHPI: Patient is a 47 year old female with a past medical history significant for recent hemorrhagic stroke (10/29/22; 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 - Plan also explained to via burkinan translatorPatient seen with Dr. Magaña. Thank you for this consult. We will continue to follow the patient peripherally. Please do not hesitate to reach out to the on-call fellow with additional questions or concerns. Bere Arroyo, [facility] HOSPITALllergy and Immunology Fellow, PGY-4 ssociated attestation [...] see the fellow's note for additional details. 04689-5Wdcqetw cjslUH5977724Ltzr, Sarah1.2.840.107494.1.13.104.2.7.2.8 79845SengZuyflQS5890-93-05D03:58:19C onsult noteTXT1.2.840.637942.1.13.104.2.7.2 .281222|7326124556NNOexhihirm for patient amut24531-5Uygcavj jgalOVWFN-EMDOBCFNXOLQZ-PWCAQTBTTUKM MBUTMB - Health301 University IgecUjnwziobqMwgrmzxwjPHUB8546343603 FEBTFRPCUEYIPWHWZKSRNF4349-84-33U95: 58:191.2.840.611748.1.72.3.15|1.2.84 0.953428.1.13.104.2.7.2.727879_18954 58993 2022-11-24 5465-55-76S11:08:12Associated NS-NEUROLOGICAL [facility] 16:08:12 Order(s): CONSULT SURGERY NEUROSURGERY NEUROSURGERY CONSULTATION HISTORY AND PHYSICALAttending Neurosurgeon: Dr. 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 Pt [...] 100% 100% Weight: Height: Awake, alert, oriented r6OJPNF bilaterally at 3mmEOMI bilaterallySlight left lower facial [...] setting of methamphetamine use), CAD c/b unspecified [place] (02/2022 per [facility]), HFpEF, hypertension, hyperlipidemia, COPD, GERD, and seizure disorder (not on medications) presenting as a transfer from [facility] for NSTEMI currently on heparin drip. NSGY consulted for recs regarding heparin in light of recent hemorrhagic stroke. Pt at neurologic baseline s/p stroke.Recommendations:No neurosurgical interventionPlease consult neurology for management and recommendations of anticoagulation w/ hx of hemorrhagic strokeWill sign off at this timeChrismariangel White MDNeurosurgery ServiceFor inquiries please page [phone] signed by Burton Howell MD at 11/25/2022 12:23 PM CDTAssociated attestation - Burton Howell MD - 11/25/2022 12:23 PM CDT I personally evaluated and am primary in decision making on, Geetha Minor, and I agree with the documentation by Sinan White MD,neurosurgery resident.15175-9Ktgtjzt sjaiVK1777221Gmvbyu, Rudy P1.2.840.945095.1.13.104.2.7.2.65470 1NzbmhrLfczOPC7921-80-14R50:23:14Con sult noteTXT1.2.840.172132.1.13.104.2.7.2 .324033|4286372343CPWqtybtdkp for patient ucfc51390-5Inxawhy noteLNNS-NEUROLOGICAL SURGERYNS-NEUROLOGICAL SURGERY[address] Zm[id number] YWWJGCKPWBTIJQNILWKBYG8957-13-88O35: 23:141.2.840.845001.1.72.3.15|1.2.84 0.148211.1.13.104.2.7.2.727879_18954 32175 History and Physical Notes Date/Time Note Provider Source 2022-11-24 11:33:08 3083-01-19W13:33:08Formatting of this note [facility] is different from the original.Images from the original note were not included.CCU History and Physical Date of Service: 11/24/2022 15:48 ICU day: Intubation Day: CHIEF COMPLAINT: Chest painHistory of Present IllnessGeetha Minor is a 47 year old female with a past medical history significant for recent hemorrhagic stroke (10/29/22; 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 On my interview, patient reports [...] for amphetamines during her recent hospitalization.Workup at [facility] showed ST depression and TWI in [...] 454 ms QTC Calculation(Bazett) 460 ms P [place] 19 degrees R [place] 64 degrees T [place] 254 degrees Normal sinus rhythm Possible Left [...] sedated at OSH prior to transfer to [facility], extubated on 10/30, required nicardipine gtt and [...] her , she will need 08/10 assistance. S 10/29/22Assessment/Plan:Geetha Minor is a 47 year old [...] develop- Sedation/Analgesia: NoneRespCOPDHx tobacco abuse- DuoNebs prn- B9VUOrjbzdyaqbvrrsNICDXKZaqbe painReported CAD HFpEFBradycardiaHTNHLDPatient presenting as a transfer [...] evaluation of volume status- CXR- Will need [facility] this admission- Continue Plavix (allergic to [...] prophylaxis: heparinLines/Catheters:Peripheral IV 11/24/22 Right Antecubital Inserted INSTITUTIONAL COOK (Active) Number of days: 0 Dispo: CCUPrognosis: [...] ordering referrals and/or communicating with other health health care law specialist (when not separately reported), documenting clinical information in the electronic or other health record, and care coordination (not separately reported).- hemodynamically stable- Neurosurgery consult for systemic AC / DAPT in the future, given h/o ICH- allergy consult for ASA desensitizationJOSE Cierra GONZALEZ MD, [facility], FACC, [facility] SYSTEMAAssistant ProfessorCardiology, Advanced Heart Failure, LVAD & Transplant ServiceDate of service: 282616616-5Cvehnur and physical tbafSG3312123Diolptxqfu-Yziqkmxb, Jose C1.2.840.268358.1.13.104.2.7.2.276726Rqcdwazeem Partidagvkxz-JdgxvhgxJufoYNV2901-51-10T15:30:41Hi story and physical noteTXT1.2.840.347052.1.13.104.2.7.2.57683 9|7466161768VDRmzwmtkoy for patient pdpl90026-2Iwzziez and physical noteLN[address] [id number] OBTZAYVGGUMGBTMK8869-56-94Z39:30:411.2.840 .177336.1.72.3.15|1.2.840.497960.1.13.104. 2.7.2.727879_[id number] Notes Date/Time Note Provider Source 2022-11-29 13:58:46 6142-74-35J06:58:46Formatting Desi hernandez ORTHOPEDIC TECH [facility] of this note is different from the original.2nd call no contact. 00716-1Ltdkiydul encounter ChvqHV5055-58-39X21:58:57Teleph one encounter NoteTXT1.2.840.092267.1.13.104. 2.7.2.869826|1227877114LPRgavzq ble for patient toke72667-7GuvkXF561429312Ocpnh kellie Sotelo [address]TXTX[address] 02773CMMVDBYODRLPXILOMBXWYC1546 -09-14T13:58:571.2.840.301845.1 .72.3.15|1.2.840.315895.1.13.10 4.2.7.2.727879_1899775951 2022-11-29 12:58:12 4339-88-01M61:58:12Formatting [facility] of this note might be different from the original.TRANSITIONAL CARE MANAGEMENT ASSESSMENT11/29/2022 Geetha MinorOjnjvpom301296NDmyktsg Martinez is a 47 year old /White female was admitted on 11/24/[address] She was discharged on 11/28/22 with discharge disposition of HR- Routine Discharge.Admitting Physician: Ryne Yoder FDischarge Diagnosis: NSTEMI (non-ST elevated myocardial infarction) [I21.4]No contact.No linked episodesTCM Qok-vcyo-ym-face outreach documentation: Future Appointments: 51726-0Watvyfpcd encounter DzdqWQ3739-45-95B79:58:44Teleph one encounter NoteTXT1.2.840.306096.1.13.104. 2.7.2.621913|7812187330JSKiilmw [facility] ievq77364-3NnhmRJMFRAZBXS[address] KsqbMqhayvvisDflwodyytPUAK31765 87458FMXWIGUGRRQHZQQXCLILLL8987 -09-14T12:58:441.2.840.068286.1 .72.3.15|1.2.840.511146.1.13.10 4.2.7.2.727879_1899716552 2022-11-28 16:51:33 8866-68-96S97:51:33Formatting Sylvia camacho [facility] of this note might be different [...] of new skin breakdownOutcome: Adequate for discharge 38156-1Legq of care vhuuDH9968-95-60H71:51:41Plan of care noteTXT1.2.840.763363.1.13.104. 2.7.2.858303|6581505431FSLfimxk ble for patient yscm12113-4OmmeAC798038397Egepd feroz Iniguez RN[address] TyfoWmplomstiDsoekamohZYNE86[address] 45804IGMRTPKGTTCQDWODJVKSQT5275 -09-13T16:51:411.2.840.903349.1 .72.3.15|1.2.840.486392.1.13.10 4.2.7.2.727879_1898798115 2022-11-28 01:14:27 4055-23-36V06:14:27Formatting Trang mendes [facility] of this note might be different [...] of new skin breakdownOutcome: Progressing as expected 15685-6Aqnp of care ndadPU0686-75-30I41:14:30Plan of care noteTXT1.2.840.966068.1.13.104. 2.7.2.581541|0110630418SJFvdfmo ble for patient zupl90005-5McexLI027060166Atzer anders Morton RNUT[address] StreetvdGalvestonGalvestonTXTX[address] 73979MAEOTVDFDCLOKBGVAEKMIJ4191 -09-13T01:14:301.2.840.351769.1 .72.3.15|1.2.840.513836.1.13.10 4.2.7.2.727879_[id number] 2022-11-27 06:31:47 4305-09-46Y73:31:47Formatting Laisha Bartlett RN [facility] of this note might be different [...] of new skin breakdownOutcome: Progressing as expected 43310-3Hnvl of care meukOY9658-66-87C46:31:49Plan of care noteTXT1.2.840.496461.1.13.104. 2.7.2.596623|0622515376HFBtxayr [facility] lofy62005-3FsodNS168897633Fkvj N. Au RNUT[address] RygqLqatjlreiXuzkowttcZDHJ99692 20179HPGWDOCJAEYJBKESQOYBBN8312 -09-12T06:31:491.2.840.430998.1 .72.3.15|1.2.840.214673.1.13.10 4.2.7.2.727879_1896843962 2022-11-26 21:20:10 6466-98-05G04:20:10Formatting Angelia Cardenas RN [facility] of this note might be different [...] Reduction in pain sensationOutcome: Progressing as expected 68807-8Ptiw of care bfwmPU6613-38-85Z77:20:13Plan of care noteTXT1.2.840.995270.1.13.104. 2.7.2.910507|9406376330XJMcudav ble for patient dglc59267-2LgikRH994143684Rwrvo y D Burns RN[address] StreetTXTX[address] 97192QYXYHCYFOONTCPFNXWLDGH3325 -09-11T21:20:131.2.840.660840.1 .72.3.15|1.2.840.459348.1.13.10 4.2.7.2.727879_1896613986 2022-11-26 17:36:46 3017-26-10Q73:36:46Formatting Sushma Velazquez [facility]ly [facility] of this note might be different [...] Reduction in pain sensationOutcome: Progressing as expected 61646-3Cdkj of care oivcVR0593-77-68X87:36:51Plan of care noteTXT1.2.840.357060.1.13.104. 2.7.2.182279|0710055921QIAgcrks ble for patient fwtg16460-2GxvzQV844844421Infhg a D Cantu RN[address] StreetTXTX[address] 94824CNYYFTDFKYXYHSIVKKCQTB8434 -09-11T17:36:511.2.840.894231.1 .72.3.15|1.2.840.898862.1.13.10 4.2.7.2.727879_[id number] 2022-11-25 23:27:36 2656-68-80B77:27:36Formatting Chuyita lackey [facility] of this note might be different RN from the original.Problem: Falls, Risk ofGoal: Absence of fallsOutcome: Progressing as expected Problem: PainGoal: Control of pain at or below patient's documented comfort goalOutcome: Progressing as expected 49178-3Dvec of care ktucZS1820-04-94K06:27:40Plan of care noteTXT1.2.840.303435.1.13.104. 2.7.2.661471|[id number] ble for patient [id number] jorje Rosen RN[address]vd[place] 20844LFCTPTGDOVPWOSNNIYXMKJ0428 -09-10T23:27:401.2.840.352411.1 .72.3.15|1.2.840.735343.1.13.10 4.2.7.2.727879_[id number] 2022-11-25 17:36:51 6996-87-50G99:36:51Formatting Angelia causey RN [facility] of this note might be different [...] of medication managementOutcome: Not progressing as expected 89091-5Duvc of care gzvkQR7471-81-48P60:36:56Plan of care noteTXT1.2.840.832268.1.13.104. 2.7.2.321808|[id number] [facility] [id number] candice Carrion RNUT67 [place] [address] [id number] -09-10T17:36:[id number] 2022-07-30 20:59:40 [id number] YAIMA GOMEZ [facility] CONSULTATIONGEETHA MINORFACILITY: SLSLBilling #: [id number] Room: [address] [place] [address] #: [id number] : 1975DATE OF ADMISSION: 3DATE OF CONSULTATION: 07/30/2022REQUESTING PHYSICIAN:FINANCIAL AUDITOR: Yaima Gomez, MDConsultation is with lower quadrant pain, possible tubo-ovarianabscesses.HISTORY OF PRESENT ILLNESS: 47-year-old female with history ofpain, left lower quadrant that began three days ago, was at [facility] and transferred here this morning. Thought to [...] this. Leukocytosis. Agree withcurrent plan, antibiotics, and FINANCIAL SERVICES INTERN. We will follow with you.JDF/MODLDD: 07/30/2022 17:17:10DT: 07/30/2022 20:59:40Job #: [id number] signed by: YAIMA GOMEZ at 2022-07-30 17:17:[id number]- 05-15T20:59:[id number]:29: [id number], [id number] T11:29:34
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
--- NOTE | 2023-02-09 04:58 | EDPHYS ---
Physician Documentation [facility] Name: Geetha Khan Age: 47 yrs Sex: Female : 1975 Arrival Date: 02/09/2023 Time: 03:20 Bed 13 Private MD: ED Physician Gene Medrano HPI: 02/09 04:06 This 47 yrs old Female presents to ER via EMS with complaints of shoulder popped. rn 04:06 The patient or guardian complains of pain. right shoulder. Onset: The symptoms/episode rn began/occurred just prior to arrival. Modifying factors: the symptoms are alleviated by remaining still, The symptoms are aggravated by movement, rotation of arm. Severity of symptoms: At their worst the symptoms were mild, in the emergency department the symptoms are unchanged. The patient has experienced similar episodes in the past. Patient with chronic pain, was holding onto furniture trying to reposition herself and heard a pop in her shoulder. Did not fall, did not have direct blunt trauma to shoulder. Able to move shoulder but hurts her. Pain is mild.. Historical: - Allergies: 03:24 Aspirin; rv 03:24 CRANBERRY; rv 03:24 FISH PRODUCT DERIVATIVES; rv 03:24 GRAPEFRUIT; rv 03:24 mushrooms; rv - PMHx: 03:24 Asthma; Cerebrovascular accident; COPD; Hypertension; Myocardial infarction; Seizures; rv Thyroid problem; - Immunization history:: Adult Immunizations up to date. - Social history:: Smoking status: Patient reports the use of cigarette tobacco products, smokes one pack cigarettes per day. - Family history:: not pertinent. - Hospitalizations: : No recent hospitalization is reported. ROS: 04:07 Constitutional: Negative for fever, chills, and weight loss, Neck: Negative for injury, rn pain, and swelling, Cardiovascular: Negative for chest pain, palpitations, and edema, Respiratory: Negative for shortness of breath, cough, wheezing, and pleuritic chest pain, Abdomen/GI: Negative for abdominal pain, nausea, vomiting, diarrhea, and constipation, Back: Negative for injury and pain, MS/Extremity: Positive for right shoulder pain and injury Skin: Negative for injury, rash, and discoloration, Neuro: Negative for headache, weakness, numbness, tingling, and seizure, Exam: 04:07 Constitutional: This is a well developed, well nourished patient who is awake, alert, rn and in no acute distress. Neck: No spinal tenderness Cardiovascular: Regular rate and rhythm. No pulse deficits. Respiratory: No increased work of breathing, no retractions or nasal flaring. Abdomen/GI: Soft, non-tender MS/ Extremity: Pulses equal, no cyanosis. Neurovascular intact. Mild pain with range of motion right shoulder. No swelling. No ecchymosis. Grinding and clicking present in right shoulder. No tenderness over scapula or clavicle. Neuro: Awake and alert, GCS 15 Vital Signs: 03:23 BP 167 / 108; Pulse 100; Resp 18; Temp 98; Pulse Ox 98% on R/A; Weight 65.77 kg; Height rv 5 ft. 2 in. ; 03:50 BP 163 / 103; Pulse 100; Resp 20 S; Pulse Ox 98% on R/A; ha1 04:30 BP 160 / 101; Pulse 98; Resp 17 S; Pulse Ox 98% on R/A; ha1 05:31 BP 158 / 101; Pulse 98; Resp 17 S; Pulse Ox 98% on R/A; ha1 03:23 Body Mass Index 26.52 (65.77 kg, 157.48 cm) rv MDM: 03:23 Patient medically screened. rn 04:57 Differential diagnosis: humeral head fracture, DJD, tendonitis. Data reviewed: vital rn signs, nurses notes, radiologic studies, plain films, and as a result, I will discharge patient. Counseling: I had a detailed discussion with the patient and/or guardian regarding the historical points, exam findings, and any diagnostic results supporting the discharge/admit diagnosis, radiology results, the need for outpatient follow up, to return to the emergency department if symptoms worsen or persist or if there are any questions or concerns that arise at home. Special discussion: I discussed with the patient/guardian in detail that at this point there is no indication for admission to the hospital. It is understood, however, that if the symptoms persist or worsen the patient needs to return immediately for re-evaluation. ED course: No acute findings on x-ray of right shoulder. Patient request morphine. Shoulder morphine not indicated given great range of motion and lack of fracture or abnormal findings on x-ray. Will give p.o. pain medication. Will discharge. I have personally reviewed all of the results, including but not limited to imaging deemed necessary to safely discharge this patient at this time. All results given to and printed out for patient. I personally went over all the results with the patient and answered all questions. Patient will follow-up with PCP and or specialist as discussed. Return precautions given and understood.. 02/09 03:25 Order name: XRAY Shoulder RIGHT 2 view rn Administered Medications: 05:06 Drug: traMADol PO 50 mg PO once Route: PO; ha1 05:31 Follow up: Response: No adverse reaction; Pain is decreased; RASS: Alert and Calm (0) ha1 Disposition Summary: 02/09/23 04:58 Discharge Ordered Notes: Location: Home rn Problem: new rn Symptoms: have improved rn Condition: Stable rn Diagnosis - Strain of other muscles, fascia and tendons at shoulder and upper arm level, right rn arm - Strain of muscle(s) and tendon(s) of the rotator cuff of right shoulder rn Followup: rn - With: Private Physician - When: As needed - Reason: Recheck today's complaints, Re-evaluation by your physician Discharge Instructions: - Discharge Summary Sheet rn - Shoulder Sprain rn Forms: - Medication Reconciliation Form rn - Thank You Letter rn - Antibiotic heat treating furnace tender - Prescription Opioid Use rn - Patient Portal Instructions rn - Leadership Thank You Letter rn Signatures: Dispatcher [employer] Gene Simon MD MD rn Vicente, Ronaldo, RN RN rv Ayala, Heidy, RN RN 1
[2023-02-09] MEDS ORDERED: TRAMADOL HCL 50 MG TAB ONE (05:17)
[2023-02-09 05:48] VITALS: TEMP 98; O2SAT 98
[2023-02-09 05:53] VITALS: BP 158/101
--- NOTE | 2023-02-11 11:45 | RAD REPORT ---
EXAM DESCRIPTION: XR SHOULDER 2 OR MORE VIEWS RIGHT CLINICAL HISTORY: Female, 47 years old, PAIN TECHNIQUE: 2 views COMPARISON: None. FINDINGS: Exam is limited by lack of orthogonal view. No acute fracture or dislocation. Normal osseo us mineralization. Joint spaces and articular surfaces are preserved. The soft tissues and imaged cecil st are unremarkable. IMPRESSION: No acute osseous finding of the right shoulder. Electronically signed by: Vadim Cohen MD 02/09/2023 05:01 AM CONCRETE PUDDLER Due to temporary technical issues with the PACS/Fluency reporting system, reports are being signed by the in house radiologist without review as a courtesy to ensure prompt reporting. The interpreting r adiologist is fully responsible for the content of the report.
== END 2023-02-09 05:32 | disposition home or self-care (01) ==
LOC: ER 03:20
DX: S46.011A Strain of muscle(s) and tendon(s) of the rotator cuff of right shoulder, initial encounter (principal); S46.811A Strain of other muscles, fascia and tendons at shoulder and upper arm level, right arm, initial encounter
CPT/HCPCS: 99284

== ENCOUNTER 2023-02-11 23:05 | Emergency (ER) | payer SELFPAY ==
--- OUTSIDE RECORDS SUMMARY | 2023-02-11 23:20 | XMS REPORT | Continuity of Care Document ---
:1975 Author Organization [facility] t Address [address] [facility] [address] [place] [id number] Care Team Providers Name Role Phone No, Pcp [facility] Primary Care Physician Unavailable MIR ARITA Attending Clinician Unavailable JUJU TAI Attending Clinician Unavailable KATHY ZEPEDA Attending Clinician Unavailable MURRAY ELISE Attending Clinician Unavailable Caty Wang Attending Clinician Unavailable Doctor Unassigned, [place] Attending Clinician Unavailable Desi Sotelo LVN Attending Clinician RYNE YODER Attending Clinician Unavailable Zohaib Parsons MD Attending Clinician [phone] Ryne Yoder MD Attending Clinician Meghana Felix MD Attending Clinician Santiago Whiteside MD Attending Clinician [phone] Kathy Zepeda MD Attending Clinician Unavailable Bessy Shah MD Attending Clinician Juju Tai DO Attending Clinician Amanda Head MD Attending Clinician [phone] Mir Arita MD Attending Clinician Merchant ECHEVERRIA, Goyo Attending Clinician GOYO HANKINS Attending Clinician Unavailable Jason DYER, Murray Attending Clinician Vijay Jenkins Attending Clinician Fredis ECHEVERRIA, Popeye In Attending Clinician Aida Alcala MD Attending Clinician [phone] Yariel ECHEVERRIA, Clifotn Negro Attending Clinician [phone] Kristin Shah MD Attending Clinician [phone] KRISTIN SHAH Attending Clinician Unavailable Servando ECHEVERRIA, Les Attending Clinician Christin ECHEVERRIA, Nena Attending Clinician Leonid Harris MD Attending Clinician CLIFTON DE LUNA Attending Clinician Unavailable Dayron Foster MD Attending Clinician [phone] DAYRON FOSTER Attending Clinician Unavailable ZAIN SALAS Attending Clinician Unavailable AMANDA HEAD Admitting Clinician Unavailable RYNE YODER Admitting Clinician Unavailable Ryne Yoder MD Admitting Clinician AIDA ALCALA Admitting Clinician Unavailable LEONID HARRIS Admitting Clinician Unavailable DAYRON FOSTER Admitting Clinician Unavailable SCOTT MCWILLIAMS Admitting Clinician Unavailable Problems Condition Condition Condition Status Onset Resolution Last Treating Co mments Source Name Details Category Date Date Treatment Clinician Date NSTEMI NSTEMI Disease Active Univers (non-ST (non-ST 9- ity of elevated elevated 00:00: [place] myocardial myocardial 00 Me dical infarction infarction Br anch ) ) ICH ICH Disease Active [facility] (intracere (intracere 8-14 [facility] bral bral 00:00: Medical hemorrhage hemorrhage 00 Ce nter ) ) Acute Acute Disease Active [facility] respirator respirator 8-14 [facility] y failure y failure 00:00: [facility] wale with with 00 Center hypoxia hypoxia Encephalop Encephalop Disease Active [facility] athy acute athy acute 8-14 [facility] 00:00: Medical 00 [facility] NIGEL (acute NIGEL (acute Disease Active [facility] kidney kidney 8-14 [facility] injury) injury) 00:00: Medical 00 [facility] Tubo-ovari Tubo-ovari Disease Active [facility] an abscess an abscess 5-21 [facility] 00:00: Medical 00 [place] Abdominal Abdominal Disease Recurre [facility] infection infection nce 5-16 [facility] 00:00: Medical [facility] Pelvic Pelvic Disease Active [facility] abscess in abscess in -15 [facility] female female 00:00: Medical 00 [facility] Acute Acute Disease Active 2018-[address] [facility] [address] cholecysti cholecysti 2-03 [facility] tis tis 00:00: Medical 00 [facility] Seizure Seizure Disease Recurre 2018-[address] [facility] disorder disorder nce 04-19 [facility] 00:00: Medical 00 [place] Calculus Calculus Disease Active 2018-03 [facility] of of 04-19 [facility] gallbladde gallbladde 00:00: Me dical r without r without 00 Cent er cholecysti cholecysti tis tis without without obstructio obstructio n n Transamini Transamini Disease Active 2018-[address] tis tis 2- [facility] 00:00: Medical 00 [facility] Hypertensi Hypertensi Disease Active 2018-[address] ve crisis ve crisis - [facility] 00:00: Medical 00 [place] Anemia Anemia Disease Active 2018-[address] [facility] [address] 2-02 [facility] 00:00: Medical 00 [place] Thrombocyt Thrombocyt Disease Active 2018- [facility] osis osis 2- [facility] 00:[facility]: Medical 00 [facility] Hypertensi Hypertensi Disease Recurre 2018-[address] [facility] on on nce 04-19 [facility] 00:00: Medical 00 [facility] Allergies, Adverse Reactions, Alerts Allergy Allergy Status Severity Reaction(s) Onset Inactive Treating Comm ents Source Name Type Date Date Clinician Scot Schulte Active Unknown - Uni vers y ty [...] 00 Medical Branch GRAPEFRU DRUG Active Unknown-Cmnt 3-0 Un yoana IT INGREDI 11-26 ity of 00:00: [place] 00 Medical Branch Aspirin Propensi Active Anaphylaxis 3-0 Throat Un yoana ty to 11-24 swells; [...] Active Swelling 2018- [facility] Containi Allergy 04-18 [facility] ng 00:00: Medical Products 00 Center CRANBERR Allergy Active High Anaphylaxis 2018- [facility] EH Y 04-18 00:00: 00 Social History Social Habit Start Date Stop Date Quantity Comments Source History [facility] Alcohol Std Drinks Medica l Center History [facility] Alcohol Comment Medical C enter History [facility] Transport Non-Med Medical Center Sexual orientation [facility] Gender identity [facility] [place] [facility] Tobacco use and 2022-11-24 2022-11-24 Smokeless Universit y of exposure 00:00:00 00:00:00 tobacco non-user [facility] History of Social 2022-11-07 2022-11-[address] [facility] function 00:00:00 00:00:00 Medical Center History of tobacco 2022-11-03 Passive smoker Un iversity of use 00:00:00 [facility] History [facility] 2022-08-06 2022-08-[address] [facility] Transport Med 00:00:00 00:00:[address] [facility] 2022-08-06 2022-08-[address] [facility] Housing Unable to 00:00:00 00:00:00 Medical Center Pay History [facility] 2022-08-06 2022-08-[address] [facility] Housing Places 00:00:00 00:00:00 Medical Ce nter Lived History [facility] 2022-08-06 2022-08-[address] [facility] Housing Homeless 00:00:00 00:00:00 Medical Center Last Year Alcohol intake 2022-08-06 2022-08-06 Ex-drinker [facility] 00:00:00 00:00:00 (finding) Medical Center Cigarettes smoked 2022-07-30 2022-07-[address] [facility] current (pack per 00:00:00 00:00:00 Medical Center day) - Reported Cigarette 2022-07-30 2022-07-[address] [facility] pack-years 00:00:00 00:00:00 Medical Center History [facility] 2019-02-15 2019-02-[address] [facility] Alcohol Binge 00:00:00 00:00:[address] History [facility] 2019-02-15 2019-02-15 1 [facility] Cifuentes Alcohol Frequency 00:00:00 00:00:00 Medical Center Sex [birth year] BR[facility] 00:00:00 00:00:00 Medical Center Smoking Status Start Date Stop Date Source Ex-smoker 2022-11-24 00:00:00 2022-11-24 [facility] [place] 00:00:00 Medical Branch Occasional tobacco 2022-07-30 00:00:00 [facility] smoker Center Medications Ordered Filled Start Stop Current Ordering Indication Dosage Frequency Signature Comments Components Source Medication Medication Date Date Medication? Clinician (SIG) Name Name QUEtiapine Yes 25mg Take 1 Unive rs 25 mg 9-14 tablet by ity of tablet 15:09: mouth in [place] [address] the Medical morning Branch and 1 tablet in the evening. furosemide 2022-0 Yes 20mg Take 1 Unive rs (LASIX) 20 9-14 tablet by ity of mg tablet 15:09: mouth in [place] [address] the Medical morning. Branch QUEtiapine 2022-0 Yes 25mg Take 1 Unive rs 25 mg 9-14 tablet by ity of tablet 15:09: mouth in [place] [address] the Medical morning Branch and 1 tablet in the evening. furosemide 3-0 Yes 20mg Take 1 Unive rs (LASIX) 20 9-14 tablet by ity of mg tablet 15:09: mouth in [place] [address] the Medical morning. Branch KCL 2022-0 Yes 20meq 20 mEq, Univers (KLOR-CON 9-14 Oral, ity of M20) tablet 14:00: DAILY, [facility] 20 mEq 00 First dose Medical on Vivian Branch 11/29/22 at 0900, Until Discontinu ed, Routine QUEtiapine 2023-0 Yes 25mg Take 1 Unive rs 25 mg 9-13 tablet by ity of tablet 21:49: mouth in [place] [address] the Medical morning Branch and 1 tablet in the evening. furosemide 2023-0 Yes 20mg Take 1 Unive rs (LASIX) 20 9-13 tablet by ity of mg tablet 21:49: mouth in [place] [address] the Medical morning. Branch QUEtiapine 2023-0 Yes 25mg Take 1 Unive rs 25 mg 9-13 tablet by ity of tablet 21:49: mouth in [place] 46 the Medical morning Branch and 1 tablet in the evening. furosemide Yes 20mg Take 1 Unive rs (LASIX) 20 11-28 tablet by ity of mg tablet 21:49: mouth in [facility] s 46 the Medical morning. Branch [...] o f tablet 10:12: 00:00 mouth in [place] 04 :00 the Medical morning. Branch metoprolol 2022- No 50mg Take 1 Univ ers tartrate 11-28 tablet by ity o f (LOPRESSOR) 10:12: 00:00 mouth in [place] 50 mg 04 :00 the Medical tablet morning Branch and 1 tablet in the evening. amLODIPine 2022-0 Yes [id number] 2.5mg Take 1 Univers 2.5 mg 11-28 tablet by ity of tablet 00:00: mouth in [place] 00 the Medical morning. Branch metoprolol 2022-0 Yes [id number] 12.5mg Take 0.5 Univers tartrate 25 9-13 tablets by it y of mg tablet 00:00: [place] the Medical morning Branch and 0.5 tablets in the evening. atorvastati 2022-0 Yes [id number] 40mg Take 1 Univers n 40 mg 9-13 tablet by ity of tablet 00:00: mouth at [place] 00 bedtime. Medical Branch amLODIPine 2022-0 Yes [id number] 2.5mg Take 1 Univers 2.5 mg 9-13 tablet by ity of tablet 00:00: mouth in [place] 00 the Medical morning. Branch metoprolol 2022-0 Yes [id number] 12.5mg Take 0.5 Univers tartrate 25 9-13 tablets by it y of mg tablet 00:00: [place] 00 the Medical morning Branch and 0.5 tablets in the evening. atorvastati 2022-0 Yes [id number] 40mg Take 1 Univers n 40 mg 9-13 tablet by ity of tablet 00:00: mouth at [place] 00 bedtime. Medical Branch amLODIPine 2022-0 Yes [id number] 2.5mg Take 1 Univers 2.5 mg 9-13 tablet by ity of tablet 00:00: mouth in [place] 00 the Medical morning. Branch metoprolol 2022-0 Yes [id number] 12.5mg Take 0.5 Univers tartrate 25 9-13 tablets by it y of mg tablet 00:00: [place] 00 the Medical morning Branch and 0.5 tablets in the evening. atorvastati 2022-0 Yes [id number] 40mg Take 1 Univers n 40 mg 9-13 tablet by ity of tablet 00:00: mouth at [place] 00 bedtime. Medical Branch amLODIPine 2022-0 Yes [id number] 2.5mg Take 1 Univers 2.5 mg 9-13 tablet by ity of tablet 00:00: mouth in [place] 00 the Medical morning. Branch metoprolol 3-0 Yes [id number] 12.5mg Take 0.5 Univers tartrate 25 9-13 tablets by it y of mg tablet 00:00: [place] 00 the Medical morning Branch and 0.5 tablets in the evening. atorvastati 3-0 Yes [id number] 40mg Take 1 Univers n 40 mg [...] Routine, Pain (scale 1-3) nitroglycer 2022- No [id number] .8mg 0.8 mg, Univers in 11-27 Sublingual ity of (NITROSTAT) 20:15: 19:15 , ONCE, 1 [place] sublingual 00 :00 dose, On Medic al tablet 0.8 e Branch mg 11/27/22 at 1515, KASSIDY iopamidol 2022- No [id number] 80mL 80 mL, U nivers (ISOVUE 11-27 Intravenou ity o f 370-500 mL) 20:15: 19:25 s, ONCE, 1 [place] injection 00 :00 dose, On Medica l 80 mL e Branch 11/27/22 at 1515, Routine acetaminoph 2022-0 2022- No 1{tbl} 1 tablet, Univers en-codeine 11-27 Oral, ity of (TYLENOL 11:15: 10:29 ONCE, 1 [place] #3) 300-30 00 :00 dose, On Medic al mg tablet 1 Tue Branch tablet 11/27/22 at 0615, Routine acetaminoph 2022-0 2022- No 1{tbl} 1 tablet, Univers en-codeine 11-26 Oral, ity of (TYLENOL 18:45: 18:50 ONCE, 1 [place] #3) 300-30 00 :00 dose, On Medic al mg tablet 1 Mon Branch tablet 11/26/22 at 1345, Routine metoprolol Yes 12.5mg 12.5 mg, U nivers tartrate 11-26 Oral, BID, ity o f (LOPRESSOR) 13:00: First dose [place] tablet 12.5 00 on Mon Medica l mg 11/26/22 at Branch 0800, Until Discontinu ed, Routine perflutren 2022- No [id number] 3mL 3 mL, IV Univers protein-A 11-25 Push, ity of microsphr 15:00: 15:00 ONCE, 1 [place] (OPTISON) 00 :00 dose, On Medica l injection 3 Sun [place] mL 11/25/22 at 1000, Routine pantoprazol Yes 40mg 40 mg, Univ ers e 11-25 Oral, ity of (PROTONIX) 14:00: DAILY, [place] EC tablet 00 First dose Medi wale 40 mg on [facility] 11/25/22 at 0900, Until Discontinu ed, Routine clopidogreL 2022- No 75mg 75 mg, Uni vers (PLAVIX) 75 11-25 Oral, ity of mg tablet 14:00: 14:47 DAILY, [place] 75 mg 00 :08 First dose Medical on [facility] 11/25/22 at 0900, Until Discontinu ed, Routine magnesium No 4g 4 g, IV Univ ers sulfate in 11-25 Piggyback, it y of water 4 04:15: 07:19 at 25 [place] gram/50 mL 00 :00 mL/hr Medical (8 %) IV Administer Branc h Piggyback 4 over 120 g Minutes, ONCE, 1 dose, On [facility] 11/24/22 at 2315, Routine atorvastati Yes 40mg 40 mg, Univ ers n (LIPITOR) 11-25 Oral, QHS, it y of tablet 40 02:00: First dose [place] mg [address] [facility] Medical 11/24/22 at Branch 2100, Until Discontinu ed, Routine lactated 2022- No 500mL at 999 Unive rs ringers IV 11-2411 mL/hr, 500 it y of infusion 23:00: 12:43 mL, [place] 500 mL 00 :00 Intravenou Medical s, ONCE, 1 Branch dose, On [facility] 11/24/22 at 1800, Routine lactated 2022- No 500mL at 125 Unive rs ringers IV 11-24-11 mL/hr, 500 it y of infusion 21:11: 12:43 mL, [place] 500 mL 00 :00 Intravenou Medical s, ONCE, 1 Branch dose, On 11/24/22 at 1615, Routine ipratropium Yes 3mL 3 mL, Unive rs -albuteroL 11-24 Inhalation ity of (DUONEB) 19:48: , QIDPRN, [place] 0.5 mg-3 04 Starting Medical mg(2.5 mg on Sat Branch base)/3 mL 11/24/22 at nebulizer 1448, solution 3 Until mL Discontinu ed, Routine, Wheezing lactated 2022- No 500mL at 999 Unive [...] Until Discontinu ed, Routine, Chest pain heparin 2022- No 0U/h 0-2,750 Univer s 25,000 11-24- Units/hr ity of Units/250 16:21: 00:06 (0-27.5 [...] Dosing and Testing: &nbs p;[facility], AND [facility] ONLY &nbs p; - aPTT [...] (two) times daily for 30 days. furosemide 2022-0 Yes 20mg QD Take 1 [facility] (LASIX) 20 5-28 tablet (20 Reyn[facility] es MG tablet 00:00: mg total) Med ical 00 by mouth Center in the morning. furosemide 2022-0 2023- No 20mg QD Take [address] [facility] (LASIX) 20 5-28 08-29 tablet (20 I[facility] MG tablet 00:00: 00:00 mg total) Me dical 00 :00 by mouth Center in the morning. furosemide 2022-0 2022- No 20mg QD Take [address] [facility] [address] (LASIX) 20 5-28 08-29 tablet (20 Iq[facility] kes MG tablet 00:00: 00:00 mg total) Me dical 00 :00 by mouth Center in the morning. furosemide 2022-0 2022- No 20mg QD Take [address] [facility] [address] (LASIX) 20 5-28 -29 tablet (20 Iqra kes MG tablet 00:00: 00:00 mg total) Me dical 00 :00 by mouth Center in the morning. furosemide 2022-0 2022- No 20mg QD Take [address] [facility] [address] (LASIX) 20 5-12 11-29 tablet (20 Iqra kes MG tablet 00:00: 00:00 mg total) Me dical 00 :00 by mouth Center in the morning. furosemide 2022-0 2022- No 20mg QD Take [address] [facility] [address] (LASIX) 20 5-28 -29 tablet (20 Iqra kes MG tablet [...] Take [address] [facility] [address] n (LIPITOR) 5-27 05-26 tablet (40 L ukes 40 MG 00:00: 23:59 mg total) Medica l tablet 00 :00 by mouth Center nightly. atorvastati 2022-0 3- No 40mg QD Take [address] [facility] n (LIPITOR) 08-11-29 tablet (40 L ukes 40 MG 00:00: 00:00 mg total) Medica l tablet 00 :00 by mouth Center nightly. NIFEdipine 2022-0 2022- No 60mg QD Take [address] [facility] [address] (PROCARDIA- 08-11-29 tablet (60 L ukes XL) 60 MG 00:00: 00:00 mg total) Me dical (OSM) 24 hr 00 :00 by mouth Cent er tablet in the morning. metoprolol 2022-0 2022- No 50mg Q.5D Take [address] tartrate 08-11-29 tablet (50 [facility] (LOPRESSOR) 00:00: 00:00 mg total) Medical 50 MG 00 :00 by mouth Center tablet in the morning and 1 tablet (50 mg total) before bedtime. atorvastati 2022-0 2022- No 40mg QD Take [address] [facility] n (LIPITOR) 08-11- tablet (40 L ukes 40 MG 00:00: 00:00 mg total) Medica l tablet 00 :00 by mouth Center nightly. NIFEdipine 2022-0 2022- No 60mg QD Take [address] (PROCARDIA- 08-11-29 tablet (60 L ukes XL) 60 MG 00:00: 00:00 mg total) Me dical (OSM) 24 hr 00 :00 by mouth Cent er tablet in the morning. metoprolol 2022-0 2022- No 50mg Q.5D Take [address] tartrate 08-11-29 tablet (50 [facility] (LOPRESSOR) 00:00: 00:00 mg total) Medical 50 MG 00 :00 by mouth Center tablet in the morning and 1 tablet (50 mg total) before bedtime. atorvastati 2022-0 3- No 40mg QD Take [address] [facility] [address] n (LIPITOR) 08-11-29 tablet (40 L ukes 40 MG 00:00: 00:00 mg total) Medica l tablet 00 :00 by mouth Center nightly. NIFEdipine 2022-0 2022- No 60mg QD Take [address] [facility] (PROCARDIA- 5-27 08-29 tablet (60 L ukes XL) 60 MG 00:00: 00:00 mg total) Me dical (OSM) 24 hr 00 :00 by mouth Cent er tablet in the morning. metoprolol 2023-0 2023- No 50mg Q.5D Take [address] tartrate 5-27 08-29 tablet (50 [facility] (LOPRESSOR) 00:00: 00:00 mg total) Medical 50 MG 00 :00 by mouth Center tablet in the morning and 1 tablet (50 mg total) before bedtime. atorvastati 3-0 2023- No 40mg QD Take [address] [facility] n (LIPITOR) 5-27 08-29 tablet (40 L ukes 40 MG 00:00: 00:00 mg total) Medica l tablet 00 :00 by mouth Center nightly. NIFEdipine 2023-0 2023- No 60mg QD Take [address] [facility] (PROCARDIA- 5-27 08-29 tablet (60 L ukes XL) 60 MG 00:00: 00:00 mg total) Me dical (OSM) 24 hr 00 :00 by mouth Cent er tablet in the morning. metoprolol 2023-0 2023- No 50mg Q.5D Take [address] tartrate 5-27 08-29 tablet (50 Luke [facility] (LOPRESSOR) 00:00: 00:00 mg total) Medical 50 MG 00 :00 by mouth Center tablet in the morning and 1 tablet (50 mg total) before bedtime. atorvastati 2023-0 2023- No 40mg QD Take [address] [facility] n (LIPITOR) 5- 08-29 tablet (40 L ukes 40 MG 00:00: 00:00 mg total) Medica l tablet 00 :00 by mouth Center nightly. NIFEdipine 2023-0 2023- No 60mg QD Take [address] [facility] (PROCARDIA- 5-27 08-29 tablet (60 L ukes XL) 60 MG 00:00: 00:00 mg total) Me dical (OSM) 24 hr 00 :00 by mouth Cent er tablet in the morning. metoprolol 2023-0 2023- No 50mg Q.5D Take [address] tartrate 5-27 08-29 tablet (50 [facility] (LOPRESSOR) 00:00: 00:00 [...] all this for 7 days. . NIFEdipine 2023-0 2023- No 60mg QD Take [address] [facility] (PROCARDIA- -04 08- tablet (60 L ukes XL) 60 MG 00:00: 00:00 mg total) Me dical (OSM) 24 hr 00 :00 by mouth Cent er tablet in the morning. NIFEdipine 2022- No 60mg QD Take 1 [...] Cent er tablet in the morning. NIFEdipine 2022- No 60mg QD Take [address] (PROCARDIA- 5-20 05-27 tablet (60 L ukes XL) 60 MG 00:00: 00:00 mg total) Me dical (OSM) 24 hr 00 :00 by mouth Cent er tablet in the morning. NIFEdipine 2022- No 60mg QD Take [address] [facility] (PROCARDIA- 5-20 05-27 tablet (60 L ukes XL) 60 MG 00:00: 00:00 mg total) Me dical (OSM) 24 hr 00 :00 by mouth Cent er tablet in the morning. NIFEdipine 2022- No 60mg QD Take 1 [...] mouth Center nightly. metroNIDAZO 2022- No 500mg Q.[id number] Take [address] LE (FLAGYL) 08-03 [id number] tablet [facility] 500 MG 00:00: 00:00 3D (500 mg Medical tablet 00 :00 total) by Center mouth in the morning and 1 tablet (500 mg total) at noon and 1 tablet (500 mg total) in the evening. . atorvastati 2023-0 2023- No 40mg QD Take [address] n (LIPITOR) 08-03-27 tablet (40 L ukes 40 MG 00:00: 00:00 mg total) Medica l tablet 00 :00 by mouth Center nightly. metroNIDAZO 2023-0 2023- No 500mg Q.[id number] Take [address] [facility] (FLAGYL) 08-03 [id number] tablet [facility] 500 MG 00:00: 00:00 3D (500 mg Medical tablet 00 :00 total) by Center mouth in the morning and 1 tablet (500 mg total) at noon and 1 tablet (500 mg total) in the evening. . atorvastati 2023-0 2023- No 40mg QD Take [address] n (LIPITOR) 08-03 tablet (40 L ukes 40 MG 00:00: 00:00 mg total) Medica l tablet 00 :00 by mouth Center nightly. metroNIDAZO 2023-0 2023- No 500mg Q.[id number] Take [address] [facility] (FLAGYL) 08-03 [id number] tablet [facility] 500 MG 00:00: 00:00 3D (500 mg Medical tablet 00 :00 total) by Center mouth in the morning and 1 tablet (500 mg total) at noon and 1 tablet (500 mg total) in the evening. . atorvastati 2023-0 2023- No 40mg QD Take [address] n (LIPITOR) 08-03-27 tablet (40 L ukes 40 MG 00:00: 00:00 mg total) Medica l tablet 00 :00 by mouth Center nightly. metroNIDAZO 2023-0 2023- No 500mg Q.[id number] Take [address] [facility] (FLAGYL) 08-03- [id number] tablet [facility] 500 MG 00:00: 00:00 3D (500 mg Medical tablet 00 :00 total) by Center mouth in the morning and 1 tablet (500 mg total) at noon and 1 tablet (500 mg total) in the evening. . atorvastati 2023-0 2023- No 40mg QD Take [address] n (LIPITOR) 5-19 05-27 tablet (40 L ukes 40 MG 00:00: 00:00 mg total) Medica l tablet 00 :00 by mouth Center nightly. metroNIDAZO 2022-0 3- No 500mg Q.[id number] Take [address] [facility] (FLAGYL) 08-03 [id number] tablet [facility] 500 MG 00:00: 00:00 3D [...] Center nightly. metroNIDAZO 2022-0 2022- No 500mg Q.[id number] Take [address] [facility] (FLAGYL) 08-03 [id number] tablet [facility] 500 MG 00:00: 00:00 3D (500 mg Medical tablet 00 :00 total) by Center mouth in the morning and 1 tablet (500 mg total) at noon and 1 tablet (500 mg total) in the evening. . doxycycline 2022-0 3- No 100mg Q.5D Take [address] (MONODOX) 08-03 capsule [facility] 100 MG 00:00: 00:00 (100 mg Medical capsule 00 :00 total) by Center mouth in the morning and 1 capsule (100 mg total) before bedtime. doxycycline 2022-0 2023- No 100mg Q.5D Take [address] (MONODOX) 08-03 capsule [facility] 100 MG 00:00: 00:00 (100 mg Medical capsule 00 :00 total) by Center mouth in the morning and 1 capsule (100 mg total) before bedtime. doxycycline 2022-0 2023- No 100mg Q.5D Take [address] (MONODOX) 08-03 capsule [facility] 100 MG 00:00: 00:00 (100 mg Medical capsule 00 :00 total) by Center mouth in the morning and 1 capsule (100 mg total) before bedtime. doxycycline 2023-0 2023- No 100mg Q.5D Take [address] (MONODOX) 5-19 05-21 capsule [facility] 100 MG 00:00: 00:00 (100 mg Medical capsule 00 :00 total) by Center mouth in the morning and 1 capsule (100 mg total) before bedtime. doxycycline 2022- No 100mg Q.5D Take [address] (MONODOX) 5-19 05-21 capsule [facility] 100 MG 00:00: 00:00 (100 mg Medical capsule 00 :00 total) by Center mouth in the morning and 1 capsule (100 mg total) before bedtime. doxycycline 2022- No 100mg Q.5D Take [address] (MONODOX) 5- 05-21 capsule [facility] 100 MG 00:00: 00:00 (100 mg Medical capsule 00 :00 total) by Center mouth in the morning and 1 capsule (100 mg total) before bedtime. divalproex 2022- No epilepsy 125mg QD Take [address] (DEPAKOTE) 5-15 05-15 mg by [facility] 125 MG EC 14:52: 00:00 mouth Medica l tablet 09 :00 daily. [facility] divalproex 2022- No epilepsy 125mg QD Take [address] (DEPAKOTE) 5-15 05-15 mg by [facility] 125 MG EC 14:52: 00:00 mouth Medica l tablet 09 :00 daily. [facility] divalproex 2022- No epilepsy 125mg QD Take [address] (DEPAKOTE) 5-15 05-15 mg by [facility] 125 MG EC 14:52: 00:00 mouth Medica l tablet 09 :00 daily. [facility] divalproex 2022- No epilepsy 125mg QD Take [address] (DEPAKOTE) 5-15 05-15 mg by [facility] 125 MG EC 14:52: 00:00 mouth Medica l tablet 09 :00 daily. [facility] divalproex 2022- No epilepsy 125mg QD Take [address] (DEPAKOTE) 5-15 05-15 mg by [facility] 125 MG EC 14:52: 00:00 mouth Medica l tablet 09 :00 daily. [facility] divalproex 2022- No epilepsy 125mg QD Take [address] (DEPAKOTE) 5-15 05-15 mg by [facility] 125 MG EC 14:52: 00:00 mouth Medica l tablet 09 :00 daily. [place] divalproex 2018-03 Yes epilepsy 125mg QD Take [address] (DEPAKOTE) 2-04 mg by [facility] 125 MG EC 10:36: mouth Medical tablet 04 daily. [place] divalproex 2018-03 Yes epilepsy 125mg QD Take [address] (DEPAKOTE) 2-04 mg by [facility] 125 MG EC 10:36: mouth Medical tablet 04 daily. [facility] divalproex 2018-03 Yes epilepsy 125mg QD Take [address] (DEPAKOTE) 2-04 mg by [facility] 125 MG EC 10:36: mouth Medical tablet 04 daily. [facility] famotidine 2018-03 Yes 1{tbl} Take 1 [facility] [...] Take [address] (PEPCID) 20 30 05-15 tablet by Iqra kes MG tablet 00:00: 00:00 mouth Medica l 00 :00 every 12 Center (twelve) hours. famotidine 2018-03- No 1{tbl} Take [address] (PEPCID) 04-16 05-15 tablet by Iqra kes MG tablet 00:00: 00:00 mouth Medica l 00 :00 every 12 Center (twelve) hours. Vital Signs Vital Name Observation Time Observation Value Comments Source Respiratory rate 2022-11-29 01:59:00 18 /min [facility] Oxygen saturation in 2022-11-29 01:59:00 93 /min [facility] Arterial blood by [facility] Pulse oximetry Branch Systolic blood 2022-11-29 01:23:00 126 mm[Hg] [facility] Di[facility] blood 2022-11-29 01:23:00 75 mm[Hg] [facility] Heart rate 2022-11-29 01:23:00 72 /min [facility] Body temperature 2022-11-29 01:23:00 36.94 [facility] Body weight 2022-11-28 05:16:00 70.421 kg [facility] BMI 2022-11-28 05:16:00 28.40 kg/m2 [facility] Body height 2022-11-24 16:52:00 157.5 cm [facility] WEIGHT 2022-11-12 07:05:00 74.6 kg [...] cm Heart rate 2022-11-13 20:42:00 75 /min [facility] Respiratory rate 2022-11-13 20:42:00 18 /min [facility] Oxygen saturation in 2022-11-13 20:42:00 98 /min [facility] Arterial blood by Medical Ce nter Pulse oximetry Systolic blood 2022-11-13 16:00:00 124 mm[Hg] [facility] Diastolic blood 2022-11-13 16:00:00 74 mm[Hg] [facility] Body temperature 2022-11-13 16:00:00 36.44 Nahomi [facility] Body weight 2022-11-12 07:05:00 74.6 kg [facility] BMI 2022-11-12 07:05:00 30.08 kg/m2 [facility] Heart rate 2022-08-11 12:33:33 76 /min [facility] Respiratory rate 2022-08-11 12:33:33 18 /min [facility] Oxygen saturation in 2022-08-11 12:33:33 97 /min [facility] Arterial blood by Medical Ce nter Pulse oximetry Body temperature 2022-08-11 12:33:11 36.56 Nahomi [facility] Systolic blood 2022-08-11 12:32:45 129 mm[Hg] [facility] Diastolic blood 2022-08-11 12:32:45 80 mm[Hg] [facility] Body height 2022-08-05 19:35:00 157.5 cm [facility] Body weight 2022-08-05 19:35:00 58.968 kg [facility] BMI 2022-08-05 19:35:00 23.78 kg/m2 [facility] Procedures Procedure Date / Time Performing Clinician Source Performed REFERRAL- 2023-01-24 06:01:00 Doctor Unassigned, Eidth [facility] REQUEST/RESPONSE Name Medical Branch MAGNESIUM 2022-11-28 09:22:00 Casi Maddox [facility] BASIC METABOLIC PANEL 2022-11-28 09:22:00 TanCasi carter [facility] (NA, K, CL, CO2, [facility] GLUCOSE, BUN, CREATININE, CA) CBC WITH DIFF 2022-11-28 09:22:00 Casi Maddox [facility] CT ANGIOGRAPHY 2022-11-27 19:24:21 Tori Hanna [facility] CORONARIES WITH CARDIAC [facility] CALCIUM SCORE CT HEAD WO CONTRAST 2022-11-27 17:24:05 Milagros Choe [facility] CBC WITHOUT DIFF 2022-11-27 09:15:00 Lazrao [facility] MAGNESIUM 2022-11-26 09:21:00 Paul [facility] HEPATIC FUNCTION PANEL 2022-11-26 09:21:00 Joel Willis [facility] ([id number]) (ALB,T.PRO,BILI Medical Branch T,BU/BC,ALT,AST,ALK PHOS) BASIC METABOLIC PANEL 2022-11-26 09:21:00 Paul [facility] (NA, K, CL, CO2, Medical Branch GLUCOSE, BUN, CREATININE, CA) CBC WITH DIFF 2022-11-26 09:21:00 Paul [facility] ACTIVATED PARTIAL 2022-11-25 22:48:00 Lazaro [facility] EKG-12 LEAD 2022-11-25 17:52:00 [facility] TROPONIN I 2022-11-25 17:51:[address] [facility] HB ECG ROUTINE & RHYTHM 2022-11-25 17:39:36 Joel Willis [facility] STRIP [facility] ACTIVATED PARTIAL 2022-11-25 15:42:00 Lazaro [facility] TRANSTHORACIC ECHO (TTE) 2022-11-25 14:57:34 Joel Willis [facility] COMPLETE W/ CONTRAST Medical [facility] MAGNESIUM 2022-11-25 09:20:00 Lazaro [facility] BASIC METABOLIC PANEL 2022-11-25 09:20:00 Joel Willis [facility] (NA, K, CL, CO2, Medical Branch GLUCOSE, BUN, CREATININE, CA) URINE DRUG (IMMUNOASSAY) 2022-11-25 07:32:00 Joel Willis [facility] - COMPREHENSIVE DRUG Medical [facility] SCREEN GC & CHLAMYDIA AMPLIFIED 2022-11-25 07:32:00 Joel Willis [facility] ASSAY [facility] URINE DRUG (LCMSMS) - 2022-11-25 07:32:00 Joel Willis [facility] SYNTHETIC OPIATES PANEL Medical Branch CBC WITHOUT DIFF 2022-11-25 07:31:00 Lazaro [facility] ACTIVATED PARTIAL 2022-11-25 07:31:00 Lazaro [facility] URINALYSIS 2022-11-25 07:31:00 Lazaro [facility] MAGNESIUM 2022-11-25 01:31:00 [facility] BASIC METABOLIC PANEL 2022-11-25 01:31:00 [facility] (NA, K, CL, CO2, Medical Branch GLUCOSE, BUN, CREATININE, CA) ACTIVATED PARTIAL 2022-11-25 01:31:00 Lazaro [facility] TROPONIN I 2022-11-24 23:01:00 Lazaro [facility] BLOOD CULTURE SCREEN 2022-11-24 22:57:00 Lazaro [facility] XR CHEST 1 VW 2022-11-24 21:30:59 Lazaro [facility] US ABDOMEN LIMITED 2022-11-24 21:30:31 Lazaro [facility] XR CHEST 1 VW 2022-11-24 20:37:00 Lazaro [facility] CT HEAD WO CONTRAST 2022-11-24 18:42:54 Lazaro [facility] ACTIVATED PARTIAL 2022-11-24 17:43:00 Lazaro [facility] CBC WITH DIFF 2022-11-24 16:39:00 [facility] / MSSA SCREEN BY 2022-11-24 16:39:00 [facility], NARES [facility] TROPONIN I 2022-11-24 16:34:00 [facility] THYROID STIMULATING 2022-11-24 16:34:00 Lazaro [facility] HORMONE [facility] HEPATIC FUNCTION PANEL 2022-11-24 16:34:00 [facility] ([id number] (ALB,T.PRO,BILI Medical Branch T,BU/BC,ALT,AST,ALK PHOS) BASIC METABOLIC PANEL 2022-11-24 16:34:00 [facility] (NA, K, CL, CO2, Medical Branch GLUCOSE, BUN, CREATININE, CA) LIPID PANEL 2022-11-24 16:34:00 [facility] ([id number])(TOTAL Medical Branch CHOLESTEROL, TRIGLYCERIDES, HDL) GLYCOSYLATED HEMOGLOBIN 2022-11-24 16:34:00 Joel Willis [facility] (A1C) [facility] PROTHROMBIN TIME / INR 2022-11-24 16:34:00 Joel Willis [facility] HEPATITIS B SURFACE 2022-11-24 16:34:00 Joel Willis [facility] ANTIBODY Medical Branch HEPATITIS B SURFACE 2022-11-24 16:34:00 Lazaro [facility] ANTIGEN [facility] HCV ANTIBODY 2022-11-24 16:34:00 Joel Willis [facility] HEPATITIS A VIRUS 2022-11-24 16:34:00 Lazaro [facility] ANTIBODY IGM Medical Branch N-TERMINAL PRO-BNP 2022-11-24 16:34:00 Lazaor [facility] HIV 1/2 AG-AB WITH 2022-11-24 16:34:00 Lazaro [facility] REFLEX [facility] EKG-12 LEAD 2022-11-24 16:22[facility] POCT-GLU[facility]SE METER 2022-11-13 12:03:00 Merchant [facility] PHOSPHORUS 2022-11-13 04:55:00 [facility] MAGNESIUM 2022-11-13 04:55:00 [facility] CBC W/PLT COUNT & AUTO 2022-11-13 04:55:00 [facility] DI[facility] [place] CBC W/PLT COUNT & AUTO 2022-11-13 04:55:00 Merchant [facility] POCT-GLUCOSE METER 2022-11-12 21:27:00 Merchant, [facility] POCT-GLUCOSE METER 2022-11-12 18:07:00 Merchant, [facility] POCT-GLUCOSE METER 2022-11-12 13:01:00 [facility] POCT-GLUCOSE METER 2022-11-12 06:34:00 [facility] BASIC METABOLIC PANEL 2022-11-12 04:44:00 [facility] PHOSPHORUS 2022-11-12 04:44:00 Merchant, [facility] MAGNESIUM 2022-11-12 04:44:00 Merchant, [facility] CBC W/PLT COUNT & AUTO 2022-11-12 04:44:00 Merchant, [facility] CBC W/PLT COUNT & AUTO 2022-11-12 04:44:00 Merchant, [facility] POCT-GLUCOSE METER 2022-11-11 23:33:00 Merchant, [facility] POCT-GLUCOSE METER 2022-11-11 17:24:00 Merchant, [facility] POCT-GLUCOSE METER 2022-11-11 12:50:00 Merchant, [facility] POCT-GLUCOSE METER 2022-11-11 07:10:00 Kaylahant, [facility] BASIC METABOLIC PANEL 2022-11-11 04:41:00 Merchant, [facility] PHOSPHORUS 2022-11-11 04:41:00 Merchant, [facility] MAGNESIUM 2022-11-11 04:41:00 Merchant, [facility] CBC W/PLT COUNT & AUTO 2022-11-11 04:41:00 Merchant, [facility] CBC W/PLT COUNT & AUTO 2022-11-11 04:41:00 Merchant, [facility] POCT-GLUCOSE METER 2022-11-11 00:15:00 Merchant, [facility] POCT-GLUCOSE METER 2022-11-10 17:10:00 Merchant, [facility] POCT-GLUCOSE METER 2022-11-10 16:56:00 Merchant, [facility] POCT-GLUCOSE METER 2022-11-10 12:12:00 Merchant, [facility] POCT-GLUCOSE METER 2022-11-10 06:57:00 Merchant, [facility] BASIC METABOLIC PANEL 2022-11-10 04:59:00 Merchant, [facility] PHOSPHORUS 2022-11-10 04:59:00 Merchant, [facility] MAGNESIUM 2022-11-10 04:59:00 Merchant, [facility] CBC W/PLT COUNT & AUTO 2022-11-10 04:59:00 Merchant, [facility] CBC W/PLT COUNT & AUTO 2022-11-10 04:59:00 Merchant, [facility] POCT-GLUCOSE METER 2022-11-09 23:21:00 Merchant, [facility] POCT-GLUCOSE METER 2022-11-09 17:12:00 Merchant, [facility] POCT-GLUCOSE METER 2022-11-09 12:09:00 Merchant, [facility] VANCOMYCIN LEVEL, TROUGH 2022-11-09 09:28:00 Clyde Florentino [facility] POCT-GLUCOSE METER 2022-11-09 05:53:00 Merchant, [facility] BASIC METABOLIC PANEL 2022-11-09 03:49:00 Juan J Cox Bransonoscar SalterConstantino [facility] PHOSPHORUS 2022-11-09 03:49:00 Ali Cox Bransonoscar [facility] MAGNESIUM 2022-11-09 03:49:00 Ali Cox Bransonoscar [facility] CBC W/PLT COUNT & AUTO 2022-11-09 03:49:00 Juan J [facility] CBC W/PLT COUNT & AUTO 2022-11-09 03:49:00 Juan J [facility] POCT-GLUCOSE METER 2022-11-08 23:58:00 Merchant, [facility] BASIC METABOLIC PANEL 2022-11-08 18:20:00 Mir Arita [facility] POCT-GLUCOSE METER 2022-11-08 17:17:00 [facility] POCT-GLUCOSE METER 2022-11-08 12:24:00 Merchant [facility] POCT-GLUCOSE METER 2022-11-08 05:58:00 [facility] BASIC METABOLIC PANEL 2022-11-08 04:09:00 Juan J Cox Bransonoscar [facility] PHOSPHORUS 2022-11-08 04:09:00 Juan J Cox Bransonoscar [facility] MAGNESIUM 2022-11-08 04:09:00 [facility] CBC W/PLT COUNT & AUTO 2022-11-08 04:09:00 [facility] CBC W/PLT COUNT & AUTO 2022-11-08 04:09:00 [facility] XR ABDOMEN/KUB 1 VIEW 2022-11-07 21:11:00 [facility] BASIC METABOLIC PANEL 2022-11-07 17:58:00 [facility] BLOOD CULTURE 2022-11-07 10:27:00 Tiffanie Noel [facility] POCT-GLUCOSE METER 2022-11-07 06:01:00 Amanda Head [facility] HIGH SENSITIVITY 2022-11-07 03:17:00 Tiffanie Noel [facility] TROPONIN I Center BASIC METABOLIC PANEL 2022-11-07 03:17:00 Agustinjackie Suarez [facility] PHOSPHORUS 2022-11-07 03:17:00 Agustin Erick [facility] MAGNESIUM 2022-11-07 03:17:00 Agustin [facility] CBC W/PLT COUNT & AUTO 2022-11-07 03:17:00 Agustin Erick, [facility] DIFFERENTIAL Keanu [place] CBC W/PLT COUNT & AUTO 2022-11-07 03:17:00 Saeid Campp [facility] POCT-GLUCOSE METER 2022-11-07 00:13:00 Ra Sonidohul [facility] Hareshkumar [place] HIGH SENSITIVITY 2022-11-06 21:18:00 Tiffanie Noel [facility] TROPONIN I [place] BLOOD CULTURE 2022-11-06 14:48:00 [facility] W/ REFLEX 2022-11-06 14:48:[address] [facility] URINE CULTURE [facility] PT/APTT 2022-11-06 14:47:00 [facility] HIGH SENSITIVITY 2022-11-06 14:47:00 Tiffanie Noel [facility] TROPONIN I [place] BLOOD GAS, ARTERIAL 2022-11-06 14:46:[address] [facility] XR CHEST 1 VIEW PORTABLE 2022-11-06 12:18:[address] [facility] / BEDSIDE [facility] BLOOD CULTURE 2022-11-06 10:38:00 Jose Kirk [facility] LACTIC ACID, VENOUS 2022-11-06 10:38:[address] [facility] PROCALCITONIN 2022-11-06 10:38:00 Jose Kirk [facility] HIGH SENSITIVITY 2022-11-06 10:38:00 [facility]OP[facility]IN I [facility] POCT-BLOOD GASES, 2022-11-06 10:38:00 Tai, [facility] ARTERIAL Center POCT-SODIUM 2022-11-06 10:38:00 [facility] 2022-11-06 10:38:00 [facility] POCT-HEMOGLOBIN 2022-11-06 10:38:00 [facility] POCT-HEMATOCRIT 2022-11-06 10:38:00 [facility] POCT-GLUCOSE 2022-11-06 10:38:00 [facility] ECG 12-LEAD 2022-11-06 10:26:42 Unknown, 7 [facility] ECG 12-LEAD 2022-11-06 10:26:42 Unknown, 7 [facility] ECG 12-LEAD 2022-11-06 10:24:58 Unknown, 7 [facility] ECG 12-LEAD 2022-11-06 10:24:58 Unknown, 7 [facility] ECG 12-LEAD 2022-11-06 10:23:56 Unknown, 7 [facility] ECG 12-LEAD 2022-11-06 10:23:56 Unknown, [address] ECG 12-LEAD 2022-11-06 10:23:56 Unknown, 7 [facility] POCT-GLUCOSE METER 2022-11-06 10:09:[address] [facility] [address] BRAIN WITHOUT IV 2022-11-06 08:46:36 Jhony [facility] POCT-GLUCOSE METER 2022-11-06 05:34:00 Abida [facility] BASIC METABOLIC PANEL 2022-11-06 04:38:00 Agustinjackie Suarez [facility] [place] PHOSPHORUS 2022-11-06 04:38:00 Agustin [facility] [place] MAGNESIUM 2022-11-06 04:38:00 [facility] W/PLT COUNT & AUTO 2022-11-06 04:38:00 [facility] CBC W/PLT COUNT & AUTO 2022-11-06 04:38:00 Saeid Camp [facility] POCT-GLUCOSE METER 2022-11-05 23:23:00 Abida [facility] POCT-GLUCOSE METER 2022-11-05 17:17:00 Abida [facility] XR ABDOMEN/KUB 1 VIEW 2022-11-05 14:12:00 Abida [facility] POCT-GLUCOSE METER 2022-11-05 12:42:00 Tai [facility] POCT-GLUCOSE METER 2022-11-05 06:14:00 Tai [facility] BASIC METABOLIC PANEL 2022-11-05 03:34:00 Agustin Erick, [facility] [place] PHOSPHORUS 2022-11-05 03:34:00 Agustin Erick, [facility] [place] MAGNESIUM 2022-11-05 03:34:00 [facility] CBC W/PLT COUNT & AUTO 2022-11-05 03:34:00 [facility] CBC W/PLT COUNT & AUTO 2022-11-05 03:34:00 Saeid Campdip [facility] POCT-GLUCOSE METER 2022-11-04 23:14:00 Tai [facility] SODIUM 2022-11-04 18:28:00 KanakiHumphrey birminghamal Manuel [facility] POCT-GLUCOSE METER 2022-11-04 16:53:00 Abida [facility] POCT-GLUCOSE METER 2022-11-04 12:30:00 Abida [facility] SODIUM 2022-11-04 12:17:00 KanakiaSaeid Manuel [facility] POCT-GLUCOSE METER 2022-11-04 05:41:00 Tai [facility] BASIC METABOLIC PANEL 2022-11-04 04:12:00 [facility] [place] PHOSPHORUS 2022-11-04 04:12:00 [facility] [place] MAGNESIUM 2022-11-04 04:12:00 Agustin Erick [facility] [place] CBC W/PLT COUNT & AUTO 2022-11-04 04:12:00 [facility] CBC W/PLT COUNT & AUTO 2022-11-04 04:12:00 Saeid Camp [facility] POCT-GLUCOSE METER 2022-11-04 00:14:00 Abida [facility] SODIUM 2022-11-03 18:20:00 KanakiaHumphreyal Manuel [facility] POCT-GLUCOSE METER 2022-11-03 16:39:00 Abida [facility] SODIUM 2022-11-03 12:06:00 Saeid Camp Manuel [facility] POCT-GLUCOSE METER 2022-11-03 11:53:00 Abida [facility] XR ABDOMEN/KUB 1 VIEW 2022-11-03 11:27:11 Abida [facility] POCT-GLUCOSE METER 2022-11-03 05:39:00 Abida [facility] BASIC METABOLIC PANEL 2022-11-03 05:04:00 [facility] [place] PHOSPHORUS 2022-11-03 05:04:00 [facility] [place] MAGNESIUM 2022-11-03 05:04:00 [facility] CBC W/PLT COUNT & AUTO 2022-11-03 05:04:00 [facility] CBC W/PLT COUNT & AUTO 2022-11-03 05:04:00 Humphrey Campal Manuel [facility] POCT-GLUCOSE METER 2022-11-02 23:23:00 Abida [facility] SODIUM 2022-11-02 18:10:00 Saeid [facility] POCT-GLUCOSE METER 2022-11-02 17:45:00 Abida [facility] POCT-GLUCOSE METER 2022-11-02 12:55:00 Abida [facility] SODIUM 2022-11-02 12:29:00 Conrado Saeid [facility] CT BRAIN WITHOUT IV 2022-11-02 11:03:00 Abida [facility] POCT-GLUCOSE METER 2022-11-02 06:10:00 [facility] SODIUM 2022-11-02 05:19:00 Conrado [facility] BASIC METABOLIC PANEL 2022-11-02 05:19:00 Agustin [facility] [place] PHOSPHORUS 2022-11-02 05:19:00 [facility] [place] MAGNESIUM 2022-11-02 05:19:00 Agustin [facility] CBC W/PLT COUNT & AUTO 2022-11-02 05:19:00 Agustin [facility] CBC W/PLT COUNT & AUTO 2022-11-02 05:19:00 Conrado [facility] POCT-GLUCOSE METER 2022-11-02 00:07:00 [facility] SODIUM 2022-11-01 18:31:00 Conrado [facility] POCT-GLUCOSE METER 2022-11-01 18:27:00 Alyssa [facility] 2D ECHO W/ DOPPLER 2022-11-01 15:27:00 Conrado [facility] (CW/PW/COLOR) [place] SODIUM 2022-11-01 13:53:00 Shontommy [facility] VANCOMYCIN LEVEL, TROUGH 2022-11-01 08:58:00 Mccracken, Yaima D [facility] MAGNESIUM 2022-11-01 08:58:00 [facility] POTASSIUM 2022-11-01 08:58:00 Karan [facility] BASIC METABOLIC PANEL 2022-11-01 03:10:00 Agustin Erick, [facility] [place] PHOSPHORUS 2022-11-01 03:10:00 Agustin Erick, [facility] [place] MAGNESIUM 2022-11-01 03:10:00 [facility] CBC W/PLT COUNT & AUTO 2022-11-01 03:10:00 [facility] CBC W/PLT COUNT & AUTO 2022-11-01 03:10:00 [facility]nigel [facility] SODIUM 2022-10-31 23:53:00 [facility] SODIUM 2022-10-31 17:42:00 [facility] BLOOD CULTURE 2022-10-31 15:54:00 Alyssa [facility] SARS-COV2/INFLUENZA/RSV 2022-10-31 11:52:00 [facility] RT-PCR Center SODIUM 2022-10-31 11:52:00 Conrado [facility] MAGNESIUM 2022-10-31 11:52:00 [facility] POCT-GLUCOSE METER 2022-10-31 11:49:00 Kathy Zepeda [facility] B-TYPE NATRIURETIC 2022-10-31 09:42:00 Conrado Saeid [facility] ([facility] Center MRSA SCREEN 2022-10-31 08:30:00 Clyde Florentino [facility] BASIC METABOLIC PANEL 2022-10-31 04:01:00 [facility]OS[facility]US 2022-10-31 04:01:00 Agustin Erick, [facility] MAGNESIUM 2022-10-31 04:01:00 Agustin Erick, [facility] CBC W/PLT COUNT & AUTO 2022-10-31 04:01:00 Agustin Erick, [facility] CBC W/PLT COUNT & AUTO 2022-10-31 04:01:00 Saeid Camp [facility] VENOUS DOPPLER LEGS 2022-10-31 03:37:28 Sreekanth [facility] VENOUS DOPPLER ARMS 2022-10-31 03:31:47 Sreekanth [facility] HIGH SENSITIVITY 2022-10-30 22:19:00 [facility]OPON[facility] I [facility] SODIUM 2022-10-30 22:19:00 Saeid Camp Manuel [facility] ECG 12-LEAD 2022-10-30 17:27:26 Unknown, Hl7 [facility] ECG 12-LEAD 2022-10-30 17:27:26 Unknown, H[facility]7 [facility] ECG 12-LEAD 2022-10-30 17:26:59 Sreekanth Guevara [facility] ECG 12-LEAD 2022-10-30 17:26:59 Unknown, Hl7 Doctor [facility] ECG 12-LEAD 2022-10-30 17:26:59 Unknown, Hl7 Doctor [facility] XR ABDOMEN/KUB 1 VIEW 2022-10-30 17:09:00 Humphrey Campal Manuel [facility] LACTIC ACID, ARTERIAL 2022-10-30 16:48:00 Donnie Gonzalez [facility] HIGH SENSITIVITY 2022-10-30 16:48:00 [facility]OPONIN I [facility] SODIUM 2022-10-30 16:48:00 Humphrey Campal Manuel [facility] BLOOD GAS, ARTERIAL 2022-10-30 14:41:00 [facility] BLOOD [facility], ARTERIAL 2022-10-30 12:13:00 Nehemias Russo [facility] SODIUM 2022-10-30 12:12:00 Saeid Campdip [facility] LACTIC ACID, ARTERIAL 2022-10-30 12:12:00 Donnie Gonzalez [facility] XR CHEST 1 VIEW PORTABLE 2022-10-30 10:28:00 Kelly Medellin [facility] / BEDSIDE [facility] PROCALCITONIN 2022-10-30 10:14:00 Donnie Gonzalez [facility] HIGH SENSITIVITY 2022-10-30 10:14:00 Sreekanth Guevara [facility] TROPONIN I Center ECG 12-LEAD 2022-10-30 10:02:46 Unknown, Hl7 [facility] ECG 12-LEAD 2022-10-30 10:02:46 Unknown, Hl7 [facility] ECG 12-LEAD 2022-10-30 10:02:15 [facility] 12-LEAD 2022-10-30 10:02:15 Unknown, Hl7 [facility] ECG 12-LEAD 2022-10-30 10:02:15 Unknown, Hl7 Doctor [facility] CT BRAIN WITHOUT IV 2022-10-30 06:24:45 Agustin Suarez [facility] CONTRAST [facility] BASIC METABOLIC PANEL 2022-10-30 03:19:00 Agustinjackie Suarez [facility] PHOSPHORUS 2022-10-30 03:19:00 Agustinjackie Suarez [facility] MAGNESIUM 2022-10-30 03:19:00 Agustinjackie Suarez [facility] CBC W/PLT COUNT & AUTO 2022-10-30 03:19:00 [facility] W/PLT COUNT & AUTO 2022-10-30 03:19:00 Saeid Camp Manuel [facility] DIFFERENTIAL Center SODIUM 2022-10-29 23:11:00 Conrado Saeid Manuel [facility] XR ABDOMEN/KUB 1 VIEW 2022-10-29 18:16:00 Sreekanth Guevara [facility] PORTABLE Center SODIUM 2022-10-29 18:14:00 Conrado Saeid Manuel [facility] CREATININE, RANDOM URINE 2022-10-29 14:52:00 Pamela Angela [facility] SODIUM 2022-10-29 12:19:00 Gladysa, Saeid Manuel [facility] SODIUM, RANDOM URINE 2022-10-29 12:19:00 Saeid Campdip C [facility] UREA NITROGEN, RANDOM 2022-10-29 12:19:00 Saeid Camp [facility] URINE Center OSMOLALITY, URINE 2022-10-29 12:19:00 Shonnigela, [facility] OSMOLALITY, SERUM 2022-10-29 12:19:00 ShnoHumphrey sandersal [facility] DRUG SCREEN, URINE, 2022-10-29 12:19:00 Agustin Suarez [facility] COMPREHENSIVE [facility] HCG, QUANTITATIVE, 2022-10-29 12:19:00 Agustin Suarez [facility] CTA CAROTID 2022-10-29 10:40:00 Murray Elise [facility] CT BRAIN WITHOUT IV 2022-10-29 10:30:00 [facility] CONTRAST Center CTA BRAIN 2022-10-29 10:20:00 Alexia Murray [facility] RAPID DRUG SCREEN, URINE 2022-10-29 08:37:00 Saeid Camp [facility] SCREEN, URINE 2022-10-29 08:37:00 Gonzalez, [facility] BLOOD GAS, ARTERIAL 2022-10-29 07:53:00 [facility] XR CHEST 1 VIEW PORTABLE 2022-10-29 04:06:00 [facility] BEDSIDE Center US GUIDE, VASCULAR 2022-10-29 03:47:51 [facility], [facility] ACCESS Center NH INSERT 2022-10-29 03:46:45 [facility] CATH,ART,PERCUT,SHORTTER Center M BLOOD GAS, ARTERIAL 2022-10-29 03:46:00 Pitta, [facility] CBC W/PLT COUNT & AUTO 2022-10-29 [facility]:45[facility] METABOLIC 2022-10-29 03:45:00 [facility] MAGNESIUM 2022-10-29 03:45:00 [facility]OS[facility]US 2022-10-29 03:45:00 [facility] CALCI[facility], [facility]ON[facility]ED 2022-10-29 03:45:00 [facility] TSH/FREE T4 IF INDICATED 2022-10-29 03:45:00 [facility] HEM[facility] A[facility]C 2022-10-29 03:45:00 [facility] PROTHROMBIN TIME/INR 2022-10-29 03:45:00 [facility] APTT 2022-10-29 03:45:00 [facility] T4, FREE 2022-10-29 03:45:00 [facility] CBC W/PLT COUNT & AUTO 2022-10-29 03:45:00 [facility] ECG 12-LEAD 2022-10-29 03:28:02 Unknown, Hl7 [facility] ECG 12-LEAD 2022-10-29 03:28:02 Unknown, Hl7 [facility] ECG 12-LEAD 2022-10-29 03:27:17 PittaMurray rodriguez [facility] ECG 12-LEAD 2022-10-29 03:27:17 Unknown, Hl7 [facility] ECG 12-LEAD 2022-10-29 03:27:17 Unknown, Hl7 [facility] EKG-SCANNED 2022-10-29 00:00:00 Cesilia Talbot [facility] BASIC METABOLIC PANEL 2022-08-11 04:41:00 [facility] MAG[facility]ESIUM 2022-08-11 04:41:00 [facility] 2022-08-11 04:41:00 [facility] PHOSPHORUS 2022-08-11 04:41:00 [facility] CBC W/PLT COUNT & AUTO 2022-08-11 04:41:00 [facility] CBC W/PLT COUNT & AUTO 2022-08-11 04:41:00 [facility] BASIC METABOLIC PANEL 2022-08-10 16:09:00 [facility] SODIUM, RANDOM URINE 2022-08-10 09:33:00 [facility] UREA NITROGEN, RANDOM 2022-08-10 09:33:00 [facility] URINE [facility] CREATININE, RANDOM URINE 2022-08-10 09:33:00 [facility] OSMOLALITY, URINE 2022-08-10 09:33:00 [facility] TSH/FREE T4 IF INDICATED 2022-08-10 09:33:00 [facility] CORTISOL 2022-08-10 09:33:00 [facility] OSMOLALITY, SERUM 2022-08-10 09:33:00 [facility] T4, FREE 2022-08-10 09:33:00 [facility] CBC (HEMOGRAM ONLY) 2022-08-10 05:06:00 [facility] BASIC METABOLIC PANEL 2022-08-10 05:06:00 [facility] MAGNESIUM 2022-08-10 05:06:00 [facility] CBC (HEMOGRAM ONLY) 2022-08-09 03:38:00 [facility] BASIC METABOLIC PANEL 2022-08-09 03:38:00 [facility] MAGNESIUM 2022-08-09 03:38:00 [facility] CBC (HEMOGRAM ONLY) 2022-08-08 04:25:00 [facility] BASIC METABOLIC PANEL 2022-08-08 04:25:00 [facility] B-TYPE NATRIURETIC 2022-08-08 04:25:00 [facility] FACTOR (BNP) [facility] STD PANEL - CT/GC RNA 2022-08-07 16:52:00 [facility] FUNGUS [facility]ULT[facility] + SMEAR 2022-08-07 10:22:00 Aida Alcala I [facility] ANAEROBIC CULTURE 2022-08-07 10:22:00 Aida Alcala [facility] WOUND CULTURE + GRAM 2022-08-07 10:22:[address] [facility] [address] [facility] RADIOLOGIC GUIDANCE & 2022-08-07 10:20:00 [facility]SPEC [facility] BASIC METABOLIC PANEL 2022-08-07 03:42:00 [facility] (HEMOGRAM ONLY) 2022-08-07 03:41:00 [facility] CT ABDOMEN/PELVIS WITH 2022-08-06 00:22:00 Aida Alcala CH I [facility] IV CONTRAST [facility] SCREEN, URINE 2022-08-05 21:06:00 Ronal Duran [facility] CBC W/PLT COUNT & AUTO 2022-08-05 20:40:00 Aida Alcala I [facility] DIFFERENTIAL [facility] BASIC METABOLIC PANEL 2022-08-05 20:40:00 [facility] PROTHROMBIN TIME/INR 2022-08-05 20:40:00 [facility] TYPE AND SCREEN, 2022-08-05 20:40:00 Aida Alcala [facility] AUTOMATED [facility] CBC W/PLT COUNT & AUTO 2022-08-05 20:40:00 Aida Alcala I [facility] DIFFERENTIAL [facility] (CELLAVISION MANUAL 2022-08-05 20:40:00 [facility] TRANSTHORACIC ECHO FOR 2022-08-03 13:59:39 Unknown, Hl7 Doctor Kelly [facility] BASIC METABOLIC PANEL 2022-08-03 04:31:00 [facility] CBC (HEMOGRAM ONLY) 2022-08-03 04:31:00 [facility] CBC W/PLT COUNT & AUTO 2022-08-02 13:09:00 [facility] BASIC METABOLIC PANEL 2022-08-02 13:09:00 [facility] CBC W/PLT COUNT & AUTO 2022-08-02 13:09:00 [facility] (CELLAVISION MANUAL 2022-08-02 13:09:00 JustinorashmiLaura pak [facility] DIFF) Center NM MYOCARDIAL PERFUSION 2022-08-01 13:31:00 [facility] SPECT, PHARM [facility] TREADMILL 2022-08-01 11:39:56 Unknown, Hl7 [facility] TOLERANCE(NON-NUCLEAR Center TREADMILL) ECG 12-LEAD 2022-08-01 10:14:26 Unknown, Hl7 [facility] ECG 12-LEAD 2022-08-01 10:14:26 Unknown, 7 [facility] ECG 12-LEAD 2022-08-01 10:14:26 Unknown, 7 [facility] ECG 12-LEAD 2022-08-01 10:13:38 Unknown, 7 [facility] ECG 12-LEAD 2022-08-01 10:13:38 Unknown, 7 [facility] ECG 12-LEAD 2022-08-01 10:13:38 Unknown, Hl7 [facility] CBC W/PLT COUNT & AUTO 2022-08-01 04:47:00 Leonid Harris [facility] DIFFERENTIAL Center BASIC METABOLIC PANEL 2022-08-01 04:47:00 Leonid Harris [facility] MAGNESIUM 2022-08-01 04:47:00 Leonid Harris [facility] PHOSPHORUS 2022-08-01 04:47:00 Leonid Harris [facility] HEMOGLOBIN A1C 2022-08-01 04:47:00 [facility] PT/APTT 2022-08-01 04:47:00 [facility] HCG, QUANTITATIVE, 2022-08-01 04:47:00 [facility] TYPE AND SCREEN, 2022-08-01 04:47:00 Leonid Harris [facility] AUTOMATED Center CBC W/PLT COUNT & AUTO 2022-08-01 04:47:00 Harris, Leonid [facility] DIFFERENTIAL Center (CELLAVISION MANUAL 2022-08-01 04:47:00 Leonid Harris [facility] DIFF) Center 2D ECHO W/ DOPPLER 2022-07-31 15:20:04 [facility] (CW/PW/COLOR) [facility] ECG 12-LEAD 2022-07-31 15:01:36 [facility] ECG 12-LEAD 2022-07-31 15:01:36 Unknown, Hl7 [facility] ECG 12-LEAD 2022-07-31 15:01:36 Unknown, Hl7 [facility] US ENDOVAGINAL EV 2022-07-31 12:52:00 [facility] US PELVIS 2022-07-31 12:52:00 [facility] US DOPPLER 2022-07-31 12:52:00 [facility] BASIC METABOLIC PANEL 2022-07-31 03:09:00 Dewayne Reilly [facility] An Center MAGNESIUM 2022-07-31 03:09:00 [facility] [place] PHOSPHORUS 2022-07-31 03:09:00 [facility] CBC W/PLT COUNT & AUTO 2022-07-31 03:09:00 [facility]ew[facility]ne vazquez [facility] DIFFERENTIAL An Center LIPID PANEL 2022-07-31 03:09:00 [facility] CBC W/PLT COUNT & AUTO 2022-07-31 03:09:00 Dewayne Reilly [facility] DIFFERENTIAL [place] XR CHEST 1 VIEW PORTABLE 2022-07-30 16:42:00 Dewayne Reilly P is [facility] / BEDSIDE An Center CBC W/PLT COUNT & AUTO 2022-07-30 15:38:00 Dewayne Reilly Pis [facility] DIFFERENTIAL An Center BASIC METABOLIC PANEL 2022-07-30 15:38:00 [facility] [place] PROTHROMBIN TIME/INR 2022-07-30 15:38:00 [facility]orgeYulissadave [facility] An Center MAGNESIUM 2022-07-30 15:38:00 Pierosaint [facility] nampageorgeDewayne [facility] [place] CBC W/PLT COUNT & AUTO 2022-07-30 15:38:[address] Day[address] [facility] Medical DIFFERENTIAL [facility] Plan of Care Planned Activity Planned Date Details Comments Source Future Scheduled 2025-07-31 Lipid panel (procedure) [facility] 00:00:00 [code = 84286818] Medical Ce nter Future Scheduled 2025-07-31 Lipid panel (procedure) [facility] 00:00:00 [code = 82961735] Medical Ce nter Future Scheduled 2025-07-31 Lipid panel (procedure) [facility] 00:00:00 [code = 38176480] Medical Ce nter Future Scheduled 2025-07-31 Lipid panel (procedure) [facility] 00:00:00 [code = 30187088] Medical Ce nter Future Scheduled 2025-07-31 Lipid panel (procedure) [facility] 00:00:00 [code = 37360332] Medical Ce nter Future Scheduled 2025-07-31 Lipid panel (procedure) [facility] 00:00:00 [code = 36351142] Medical Ce nter Future Scheduled 2022-11-16 Influenza [...] [facility] 00:00:00 [code = 06567417] Medical Ce nter Future Scheduled 2021-03-18 DEPRESSION [...] cervix Medical C enter (procedure) [code = 190999968] Future Scheduled 1997 Screening for malignant [facility] 00:00:00 neoplasm of cervix Medical C enter (procedure) [code = 051529076] Future Scheduled 1997 Screening for malignant [facility] 00:00:00 neoplasm of cervix Medical C enter (procedure) [code = 015745053] Future Scheduled 1997 Screening for malignant [facility] 00:00:00 neoplasm of cervix Medical C enter (procedure) [code = 776657257] Future Scheduled 1997 Screening for malignant [facility] 00:00:00 neoplasm of cervix Medical C enter (procedure) [code = 875958004] Future Scheduled 1997 Screening for malignant [facility] 00:00:00 neoplasm of cervix Medical C enter (procedure) [code = 362305683] Future Scheduled 1997 Screening for malignant [facility] 00:00:00 neoplasm of cervix Medical C enter (procedure) [code = 777193323] Future Scheduled 1995 DTAP/TDAP/TD VACCINES (1 [facility] [...] screening Medical Cent er (procedure) [code = 654981930] Future Scheduled [address] [facility] 00[facility]00 virus screening Medical Cent er (procedure) [code = 027414501] Future Scheduled [address] Human immunodeficiency [facility] 00:00:00 virus screening Medical Cent er (procedure) [code = 468478725] Future Scheduled [address] Human immunodeficiency [facility] 00:00:00 virus screening Medical Cent er (procedure) [code = 494186557] Future Scheduled [address] Human immunodeficiency [facility] 00:00:00 virus screening Medical Cent er (procedure) [code = 376003313] Future Scheduled [address] Human immunodeficiency [facility] 00:00:00 virus screening Medical Cent er (procedure) [code = 408876864] Future Scheduled [address] [...] Test 00:00:00 [code = CT Colonography [facility]i [facility] Center (combo)] Future Scheduled 1976 Screening for malignant [facility] 00:00:00 neoplasm of colon Medical Ce nter (procedure) [code = 933627490] Future Scheduled 1976 Screening for malignant [facility] 00:00:00 neoplasm of colon Medical Ce nter (procedure) [code = 715957279] Future Scheduled 1976 Screening for malignant [facility] 00:00:00 neoplasm of colon Medical Ce nter (procedure) [code = 116596811] Future Scheduled 1976 Screening for malignant [facility] 00:00:00 neoplasm of colon Medical Ce nter (procedure) [code = 798665494] Future Scheduled 1976 Sigmoidoscopy [code = [facility] S[facility]oscopy] Medical Cente r Future Scheduled 1976 Sigmoidoscopy [code = [facility] Sigmoidoscopy] Medical Cente r Future Scheduled 1976 CT Colonography (combo) [facility] 00:00:00 [code = CT Colonography [facility] Center (combo)] Future Scheduled 1976 Screening for malignant [facility] 00:00:00 neoplasm of colon Medical Ce nter (procedure) [code = 770134906] Future Scheduled 1976 Screening for malignant [facility] 00:00:00 neoplasm of colon Medical Ce nter (procedure) [code = 742967760] Future Scheduled 1976 Screening for malignant [facility] 00:00:00 neoplasm of colon Medical Ce nter (procedure) [code = 470914025] Future Scheduled 1976 Screening for malignant [facility] 00:00:00 neoplasm of colon Medical Ce nter (procedure) [code = 021222430] Future Scheduled 1976 Sigmoidoscopy [facility]code = [facility] S[facility]oscopy] Medical Cente r Future Scheduled 1976 CT Colonography (combo) [facility] 00:00:00 [code = CT Colonography Medi wale Center (combo)] Future Scheduled 1976 Screening for malignant [facility] 00:00:00 neoplasm of colon Medical Ce nter (procedure) [code = 842368577] Future Scheduled 1976 Screening for malignant [facility] 00:00:00 neoplasm of colon Medical Ce nter (procedure) [code = 706476387] Future Scheduled 1976 Screening for malignant [facility] 00:00:00 neoplasm of colon Medical Ce nter (procedure) [code = 876218717] Future Scheduled 1976 Screening for malignant [facility] 00:00:00 neoplasm of colon Medical Ce nter (procedure) [code = 954842636] Future Scheduled 1976 Sigmoidoscopy [facility]code = [facility] S[facility]oidoscopy] Medical Cente r Future Scheduled 1976 CT Colonography (combo) [facility] 00:00:00 [code = CT Colonography Medi wale Center (combo)] Future Scheduled 1976 Screening for malignant [facility] 00:00:00 neoplasm of colon Medical Ce nter (procedure) [code = 610536171] Future Scheduled 1976 Screening for malignant [facility] 00:00:00 neoplasm of colon Medical Ce nter (procedure) [code = 555126724] Future Scheduled 1976 Screening for malignant [facility] 00:00:00 neoplasm of colon Medical Ce nter (procedure) [code = 837554637] Future Scheduled 1976 Screening for malignant [facility] 00:00:00 neoplasm of colon Medical Ce nter (procedure) [code = 092859440] Future Scheduled 1976 Sigmoidoscopy [facility]code = [facility] S[facility]oidoscopy] Medical Cente r Future Scheduled 1976 CT Colonography (combo) [facility] 00:00:00 [code = CT Colonography Medi wale Center (combo)] Future Scheduled 1976 Screening for malignant [facility] 00:00:00 neoplasm of colon Medical Ce nter (procedure) [code = 926793591] Future Scheduled 1976 Screening for malignant [facility] 00:00:00 neoplasm of colon Medical Ce nter (procedure) [code = 208105394] Future Scheduled 1976 Screening for malignant [facility] 00:00:00 neoplasm of colon Medical Ce nter (procedure) [code = 921817310] Future Scheduled 1976 Screening for malignant [facility] 00:00:00 neoplasm of colon Medical Ce nter (procedure) [code = 289927897] Future Scheduled 1976 Sigmoidoscopy [facility]code = [facility] Sigmoidoscopy] Medical Cente r Future Scheduled 1976 CT Colonography (combo) [facility] 00:00:00 [code = CT Colonography Medi wale Center (combo)] Future Scheduled 1976 Screening for malignant [facility] 00:00:00 neoplasm of colon Medical Ce nter (procedure) [code = 457254241] Future Scheduled 1976 Screening for malignant [facility] 00:00:00 neoplasm of colon Medical Ce nter (procedure) [code = 673399937] Future Scheduled 1976 Screening for malignant [facility] 00:00:00 neoplasm of colon Medical Ce nter (procedure) [code = 200442939] Future Scheduled 1976 Screening for malignant [facility] 00:00:00 neoplasm of colon Medical Ce nter (procedure) [code = 521528695] Future Scheduled 1976 Sigmoidoscopy [code = [facility] Sigmoidoscopy] Medical Petrae r Future Scheduled 1976 CT Colonography (combo) [facility] 00:00:00 [code = CT Colonography Medi wale Center (combo)] Future Scheduled 1976 Screening for malignant [facility] 00:00:00 neoplasm of colon Medical Ce nter (procedure) [code = 123795036] Future Scheduled 1976 Screening for malignant [facility] 00:00:00 neoplasm of colon Medical Ce nter (procedure) [code = 672731286] Future Scheduled 1976 Screening for malignant [facility] 00:00:00 neoplasm of colon Medical Ce nter (procedure) [code = 355627639] Future Scheduled 1976 Screening for malignant [facility] 00:00:00 neoplasm of colon Medical Ce nter (procedure) [code = 000827865] Encounters Start End Encounter Admission Attending Care Care Encounter Source Date/Time Date/Time Type Type Clinicians Facility Department ID 2022-11-07 Inpatient ER MIR ARITA [facility] [id number] SLE 19:39:43 2022-11-06 Inpatient ER ABIDA JUJU [facility] [id number] SLE 11:21:11 2022-11-06 Inpatient ER [address]UJU [facility]AI [facility] SLE [id number] SLEH 10:39:32 2022-11-05 Inpatient ER JUJU TAI [facility] [id number] SLEH 13:31:19 2022-11-03 Inpatient ER JUJU TAI [facility]H [id number] SLEH 10:45:25 2022-11-01 Inpatient ER SLEH SLEH [id number] SLEH 09:28:17 2022-11-01 Inpatient ER SLEH SLEH [id number] SLEH 09:11:47 2022-10-31 Inpatient ER BERSHAD, SLEH SLEH [id number] SLEH 00:51:03 KATHY 2022-10-31 Inpatient ER BERSHAD, SLEH SLEH [id number] SLEH 00:50:54 KATHY 2022-10-30 Inpatient ER SLEH SLEH [id number] SLEH 15:54:13 2022-10-30 Inpatient ER BERSHAD, SLEH SLEH [id number] SLEH 09:14:25 KATHY 2022-10-30 Inpatient ER BERSHAD, SLEH SLEH [id number] SLEH 05:26:11 KATHY 2022-10-29 Inpatient ER BERSHAD, SLEH SLEH [id number] SLEH 17:09:25 KATHY 2022-10-29 Inpatient ER PITTARD, SLEH SLEH [id number] SLEH 03:50:03 MURRAY 2023-01-31 2023-01-31 Outpatient [facility] [id number] Martin 15:10:33 15:10:33 1116 F Tello 2023-01-29 2023-01-29 Robby Wang [facility] [id number] [id number] Univers 00:00:00 00:00:00 (Out) Cardiology HEALTH 350.1.13.10 ity of - Clear CLEAR 4.2.7.2.686 David WANG [phone] [place] [address] [address] OFFICE BUILDING 2023-01-24 2023-01-24 Orders Doctor YAIMA [id number] [id number] Univers 00:00:00 00:00:00 Only Unassigned, VLAD 350.1.13.10 ity of [place] [facility] 4.2.7.2.686 Anthony as [phone] [facility] [address] 2023-01-22 2023-01-22 Outpatient [facility] [id number] Martin 08:26:51 08:26:51 1107 F Remington 2022-12-27 2022-12-27 Outpatient [facility] [id number] Martin 10:33:43 10:33:43 1012 F Remington 2022-11-29 2022-11-29 Transition MONSE Sotelo [id number] [id number] Univers 00:00:00 00:00:00 of Care Desi REDDY 350.1.13.10 [place] [phone] [facility] [address] 2022-11-24 2022-11-28 Inpatient U [facility] [id number] Univers 11:15:00 21:45:00 KHALED ity of [facility] 2022-11-24 2022-11-28 [facility] 1.2.840.114 [id number] Univers 11:15:00 21:45:00 Encounter Ryne Yoder 350.1.13.1 0 ity [facility] 4.2.7.2.686 [place] [id number] [facility] [address] 2022-11-24 2022-11-28 Inpatient U [facility] [id number] Univers 11:15:00 21:45:00 KHALED ity [facility] 2022-10-29 2022-11-13 [facility] [id number] [facility] 02:56:00 21:30:00 Encounter Kathy Zepeda Najamus M edical Khan, Maria Cent er Damani, Mir Reyes Omar 2022-10-29 2022-11-13 [facility] [id number] [facility] 02:56:00 21:30:[address] [facility] Bessy [facility] Sonido, Mir Reyes , Goyo 2022-10-29 2022-11-13 [id number] [facility] 02:56:00 21:30:00 GOYO 2022-11-06 2022-11-06 Inpatient ER SLE SLE [id number] SLEH 08:32:27 00:00:00 2022-11-06 2022-11-06 Orders [facility] [id number] 00:00:00 00:00:00 [facility] 2022-11-06 2022-11-06 Orders [facility] [id number] 00:00:00 00:00:00 [facility] 2022-11-05 2022-11-05 Outpatient SLE SLE [id number] SLEH 00:00:00 00:00:00 2022-11-05 2022-11-05 Outpatient SLE SLE [id number] SLEH 00:00:00 00:00:00 2022-11-02 2022-11-02 Inpatient ER JUJU TAI [facility] SLE [id number] SLE 10:58:08 00:00:00 2022-10-29 2022-10-29 Inpatient ER [facility] [id number] SLEH 10:12:32 23:59:00 MURRAY 2022-10-29 2022-10-29 [facility] [id number] [facility] 09:35:00 23:59:00 [facility]-29 2022-10-29 [facility] [id number] [facility] 09:35:00 23:59:00 Encounter Amanda Headde [facility] 2022-10-29 2022-10-29 Inpatient ER [facility] SLE [id number] SLEH 10:12:49 00:00:00 MURRAY 2022-10-29 2022-10-29 Inpatient ER [facility] [id number] SLE 10:12:41 00:00:00 MURRAY 2022-10-29 2022-10-29 Orders [facility] [id number] 00:00:00 00:00:00 Only [facility] 2022-10-29 2022-10-29 Orders [facility] [id number] 00:00:00 00:00:00 Only [facility] 2022-08-12 2022-08-12 [facility] [id number] 00:00:00 00:00:00 [facility] 2022-08-12 2022-08-12 [facility]phone [facility] [id number] 00:00:00 00:00:00 [facility] 2022-08-05 2022-08-11 [facility] [id number] 18:09:00 14:47:00 Encounter Aida Alcala [facility] [facility] 2022-08-05 2022-08-11 [facility] In [facility] [id number] 18:09:00 14:47:00 Encounter Aida Alcala [facility] 2022-08-05 2022-08-11 Inpatient ER [facility], [facility] Gynecology [id number] [facility] 18:09:00 14:47:00 [facility] 2022-08-05 2022-08-05 Travel [facility] [id number] [facility] 00:[facility] 00:[facility]:00 [facility] 2022-08-05 2022-08-05 Travel [facility] [id number] [facility] 00:[facility] 00:00:00 [facility] 2022-07-31 2022-08-03 [facility], Sahar [facility] [id number] 04:37:00 20:00:00 [facility] 2022-07-31 2022-08-03 [facility] UR Les Al [facility] [id number] 04:37:00 20:00:00 Encounter Dereck Wallerutnaif [facility]anda [facility] 2022-07-31 2022-08-03 [id number] [facility] 04:37:00 20:00:00 [facility] 2022-07-30 2022-07-31 [facility] [id number] 14:07:00 04:04:00 Encounter [facility] 2022-07-30 2022-07-31 [facility] ER [facility], [facility] [id number] 14:07:00 04:04:00 Encounter [facility] 2022-07-30 2022-07-31 Inpatient ER [facility] Gynecology [id number] [facility] 14:07:00 04:04:00 [place] 2022-07-31 2022-07-31 Orders [facility] [id number] 00:00:00 00:00:00 Only [facility] 2022-07-31 2022-07-31 Orders [facility] [id number] 00:00:00 00:00:00 Only [facility] 2022-07-30 2022-07-30 Travel [facility] [id number] [facility] 00:[facility]:00 00:00:00 [facility] 2022-07-30 2022-07-30 Travel [facility] [id number] [facility] 00:[facility] 00:00:00 [facility] Results Test Description Test Time Test Comments Results Result Comments Source HEPATIC FUNCTION PANEL (58746) (ALB,T.PRO,BILI 2022-11-26 13 :08:17 T,BU/BC,ALT,AST,ALK PHOS) Test Item Value Reference Range Interpretation Comme nts TOTAL BILI (test code = 5544136314) 0.9 mg/dL 0.1-1.1 BILI UNCON (test code = 1817578199) 0.6 mg/dL 0.1-1.1 BILI CONJ (test code = 5322167866) 0.0 mg/dL 0.0-0.3 T PROTEIN (test code = 5265311594) 6.5 g/dL 6.3-8.2 ALBUMIN (test code = 9874843892) 4.0 g/dL 3.5-5.0 ALK PHOS (test code = 8118723667) 527 U/L 34-122 H ALTv (test code = 1742-6) 116 U/L 5-35 H AST(SGOT) (test code = 8921642222) 76 U/L 13-40 H Lab Interpretation (test code = 78480-1) Abnormal [facility] METABOLIC PANEL (NA, K, CL, CO2, GLUCOSE, BUN, CREATININE, CA)2022-11-26 10:08:01 Test Item Value Reference Range Interpretation Comments NA (test code = 136 mmol/L 135-145 0921050635) K (test code = 4.1 mmol/L 3.5-5.0 6870431809) CL (test code = 100 mmol/L 98-108 5563679568) CO2 TOTAL (test code 28 mmol/L 23-31 = 7832348322) AGAP (test code = 8 2-16 9549550198) BUN (test code = 17 mg/dL 7-23 6280846402) GLUCOSE (test code = 87 mg/dL 70-110 2483798162) CREATININE (test code 1.00 mg/dL 0.50-1.04 = 4126733733) CALCIUM (test code = 9.3 mg/dL 8.6-10.6 5845647290) eGFR (test code = 59.7 mL/min/1.73m2 1138062226) SUE (test code = SUE) Association of [...] or urine or abnormalities in imaging tests). [facility]2023-[facility]-11 10:08:01 Test Item Value Reference Range Interpretation Comments MAGNESIUM (test code = 0126255265) 1.8 mg/dL 1.7-2.4 Lab Interpretation (test code = Normal 55076-6) [facility] WITH [id number] 09:36:22 Test Item Value Reference Range Interpretation Comments WBC (test code = 4.18 See_Comment L [Automated 1290-2) message] The sy stem which generated this result transmitted reference range : 4.30 - 11.10 10*3/?L. The reference range was not used to interpret this result as normal/abnormal . RBC (test code = 3.39 See_Comment L [Automated 899-8) message] The sy stem which generated this [...] RDW-SD (test code = 42.7 fL 39.0-49.9 51736-9) RDW-CV (test code = 12.5 % 12.0-15.5 788-0) PLT (test code = 151 See_Comment L [Automated 777-3) message] The sy stem which generated this result transmitted reference range : 166 - 358 10*3/ ?L. The reference r elizabeth was not used to interpret this result as normal/abnormal . MPV (test code = 9.4 fL 9.5-12.9 L 12003-3) NRBC/100 WBC (test 0.0 See_Comment [Automat ed code = 5751687615) message] The system which generated this result transmitted reference range : 0.0 - 10.0 /100 WBCs. The refer ence range was not u sed to interpret th is result as normal/abnormal . NRBC x10^3 (test code See_Comment [Auto mated = 4633390860) message] The s ystem which generated this result transmitted reference range : 10*3/?L. The reference range was not used to interpret this result as normal/abnormal . GRAN MAT (NEUT) % 68.0 % (test code = 770-8) IMM GRAN % (test code 0.00 % = 7535741659) LYMPH % (test code = 17.7 % 736-9) MONO % (test code = 9.1 % 5905-5) EOS % (test code = 4.5 % 713-8) BASO % (test code = 0.7 % 706-2) GRAN MAT x10^3(ANC) 2.84 10*3/uL 1.88-7.09 (test code = 2139171054) IMM GRAN x10^3 (test 0.00-0.06 code = 7407157097) LYMPH x10^3 (test code 0.74 10*3/uL 1.32-3.29 L = 731-0) MONO x10^3 (test code 0.38 10*3/uL 0.33-0.92 = 742-7) EOS x10^3 (test code = 0.19 10*3/uL 0.03-0.39 711-2) BASO x10^3 (test code 0.03 10*3/uL 0.01-0.07 = 704-7) Lab Interpretation Abnormal (test code = 85034-4) [facility] METABOLIC PANEL (NA, K, CL, CO2, GLUCOSE, BUN, CREATININE, CA)2022-11-25 09:47:18 Test Item Value Reference Range Interpretation Comments NA (test code = 135 mmol/L 135-145 2313806445) K (test code = 5.0 mmol/L 3.5-5.0 Slight 4732148428) hemolysis CL (test code = 100 mmol/L 98-108 4924016267) CO2 TOTAL (test code 28 mmol/L 23-31 = 9456343174) AGAP (test code = 7 2-16 8825423557) BUN (test code = 20 mg/dL 7-23 Slight 5396525656) hemolysis GLUCOSE (test code = 109 mg/dL 70-110 4198427879) CREATININE (test code 1.20 mg/dL 0.50-1.04 H = 8572792446) CALCIUM (test code = 9.2 mg/dL 8.6-10.6 8223237731) eGFR (test code = 48.4 mL/min/1.73m2 4828488872) SUE (test code = SUE) Association of [...] tests). Lab Interpretation Abnormal (test code = 60072-6) [facility]2023-09-10 09:42:55 Test Item Value Reference Range Interpretation Comments MAGNESIUM (test code = 0531374349) 3.1 mg/dL 1.7-2.4 H Lab Interpretation (test code = Abnormal 12586-5) [facility]AT[facility] A VIRUS ANTIBODY [id number] 23:52:42 Test Item Value Reference Range Interpretation Comments HAVM 0.05 Semi-Quantitative (test code = 83771-9) SUE (test code = HAVAb IgM Interpretative SUE) Information: Reactive greater than or equal to 1.2 Biotin has been reported to cause a negative bias, interpret results relative to patient's use of biotin. [facility]IN [id number] 23:35:43 Test Item Value Reference Range Interpretation Comments TROPONIN I (test code = 0.911 ng/mL <=0.034 H 8626410543) SUE (test code = SUE) Reference (Normal) [...] biotin. Lab Interpretation Abnormal (test code = 30692-5) [facility] HoustonHIV 1/2 AG-AB WITH [id number] 21:57:58 Test Item Value Reference Range Interpretation Comments HIV 0.12 Negative Semi-quantitative (test code = 72279-0) SUE (test code = Non-reactive for HIV-1 SUE) antigen and HIV-1/HIV-2 antibodies. ?No laboratory evidence of HIV infection. ?Repeat in 2-4 weeks if acute HIV infection is suspected. [facility]CV [id number] 21:57:58 Test Item Value Reference Range Interpretation Comments HCV Ab (test code = 19065-6) Negative HCV Semi-Quantitative (test code = 0.01 38197-3) [facility]AT[facility] SURFACE [id number] 21:57:58 Test Item Value Reference Range Interpretation Comments HBsAB (test code = Negative 2356618645) HBsAb 0.00 mIU/mL Semi-Quantitative (test code = 3899827947) SUE (test code = Interpretation: SUE) ?Hepatitis B Surface Antibody ? Negative - Patient is considered to be not immune to infection with HBV. ? ? Positive - Anti-HBs detected at greater than or equal to 12 mIU/mL. ?Patient is considered to be immune to infection with HBV. ? [facility] SURFACE [id number] 21:40:35 Test Item Value Reference Range Interpretation Comments HBsAg Semi-Quantitative (test code = 0.14 Negative 5195-3) [facility] HoustonGLYCOSYLATED HEMOGLOBIN (A1C)2022-11-24 18:18:35 Test Item Value Reference Range Interpretation Comments HGB A1C (test code = 4.6 % 4.0-5.7 4548-4) SUE (test code = SUE) Reference RangesNormal: <5.7%Prediabetes: 5.7 - 6.4%Diabetes: > 6.5% Lab Interpretation (test Normal code = 02539-9) [facility] Houston[facility]YROID STIMULATING [id number] 17:58:24 Test Item Value Reference Range Interpretation Comments TSH (test code = 2.03 See_Comment [Automated message] 9341152900) The system [employer] generated this result transmitted ref erence range: 0.45 - 4 .70 mIU/L. The refe rence range was not u sed to interpret this result as normal/abnor mal. Lab Interpretation (test Normal code = 71467-0) [facility] HoustonTROPONIN [id number] 17:39:48 Test Item Value Reference Range Interpretation Comments TROPONIN I (test code = 1.340 ng/mL <=0.034 H 1781080196) SUE (test code = SUE) Reference (Normal) [...] biotin. Lab Interpretation Abnormal (test code = 06266-9) [facility] HoustonN-TERMINAL [id number] 17:39:48 Test Item Value Reference Range Interpretation Comments NT-proBNP (test code = 2520 pg/mL <=125 H 34929-8) SUE (test code = SUE) Positive: Heart Failure Likely Lab Interpretation (test Abnormal code = 00499-1) [facility] METABOLIC PANEL (NA, K, CL, CO2, GLUCOSE, BUN, CREATININE, CA)2022-11-24 17:30:04 Test Item Value Reference Range Interpretation Comments NA (test code = 135 mmol/L 135-145 5236083518) K (test code = 3.9 mmol/L 3.5-5.0 9538686522) CL (test code = 97 mmol/L 98-108 L 0540509511) CO2 TOTAL (test code = 27 mmol/L 23-31 7373014229) AGAP (test code = 11 2-16 6017873019) BUN (test code = 23 mg/dL 7- 3954909034) GLUCOSE (test code = 163 mg/dL 70-110 H 0106099579) CREATININE (test code = 1.40 mg/dL 0.50-1.04 H 7649478769) CALCIUM (test code = 9.4 mg/dL 8.6-10.6 6227641624) eGFR (test code = 40.5 mL/min/1.73m2 5041615373) SUE (test code = SUE) Association of [...] tests). Lab Interpretation Abnormal (test code = 92587-4) [facility] HoustonHEPATIC FUNCTION PANEL (48214) (ALB,T.PRO,BILI T,BU/BC,ALT,AST,ALK PHOS)2022-11-24 17:30:04 Test Item Value Reference Range Interpretation Comments TOTAL BILI (test code = 8746483431) 1.0 mg/dL 0.1-1.1 BILI UNCON (test code = 7731558370) 0.6 mg/dL 0.1-1.1 BILI CONJ (test code = 3554908493) 0.0 mg/dL 0.0-0.3 T PROTEIN (test code = 8818447841) 6.8 g/dL 6.3-8.2 ALBUMIN (test code = 0800256737) 4.1 g/dL 3.5-5.0 ALK PHOS (test code = 3244543711) 746 U/L 34-122 H ALTv (test code = 1742-6) 183 U/L 5-35 H AST(SGOT) (test code = 9951913214) 196 U/L 13-40 H Lab Interpretation (test code = Abnormal 87607-9) [facility] HoustonLIPID PANEL (11221)(TOTAL CHOLESTEROL, TRIGLYCERIDES, HDL)2022-11-24 17:30:04 Test Item Value Reference Range Interpretation Comments CHOL (test code = 3856358656) 113 mg/dL 120-200 L HDL (test code = 0582427959) 62 mg/dL >=50 HDLC RATIO (test code = 7649884284) 1.8 <=4.5 TRIG (test code = 7211299217) 71 mg/dL 30-170 LDL CHOL (test code = 65177-5) 37 mg/dL <=160 VLDL (test code = 0339109529) 14 mg/dL 5-60 Lab Interpretation (test code = Abnormal 48647-4) [facility] WITH [id number] 16:55:22 Test Item Value Reference Range Interpretation Comments WBC (test code = 6.05 See_Comment [Automated 2633-2) message] The sy stem which generated this result transmitted reference range : 4.30 - 11.10 10*3/?L. The reference range was not used to interpret this result as normal/abnormal . RBC (test code = 3.21 See_Comment L [Automated 488-8) message] The sy stem which generated this [...] RDW-SD (test code = 44.3 fL 39.0-49.9 79346-3) RDW-CV (test code = 12.9 % 12.0-15.5 788-0) PLT (test code = 203 See_Comment [Automated 777-3) message] The sy stem which generated this result transmitted reference range : 166 - 358 10*3/ ?L. The reference r elizabeth was not used to interpret this result as normal/abnormal . MPV (test code = 9.9 fL 9.5-12.9 55788-3) NRBC/100 WBC (test 0.0 See_Comment [Automat ed code = 5155277319) message] The system which generated this result transmitted reference range : 0.0 - 10.0 /100 WBCs. The refer ence range was not u sed to interpret th is result as normal/abnormal . NRBC x10^3 (test code See_Comment [Auto mated = 5496773964) message] The s ystem which generated this result transmitted reference range : 10*3/?L. The reference range was not used to interpret this result as normal/abnormal . GRAN MAT (NEUT) % 59.6 % (test code = 770-8) IMM GRAN % (test code 0.20 % = 6996834655) LYMPH % (test code = 28.3 % 736-9) MONO % (test code = 9.1 % 5905-5) EOS % (test code = 2.5 % 713-8) BASO % (test code = 0.3 % 706-2) GRAN MAT x10^3(ANC) 3.61 10*3/uL 1.88-7.09 (test code = 3207947551) IMM GRAN x10^3 (test 0.00-0.06 code = 3842080878) LYMPH x10^3 (test code 1.71 10*3/uL 1.32-3.29 = 731-0) MONO x10^3 (test code 0.55 10*3/uL 0.33-0.92 = 742-7) EOS x10^3 (test code = 0.15 10*3/uL 0.03-0.39 711-2) BASO x10^3 (test code 0.01-0.07 = 704-7) Lab Interpretation Abnormal (test code = 08343-6) [facility]-Glucose [id number] 12:43:54 Test Item Value Reference Range Interpretation Comments POC-Glucose Meter (test 138 mg/dL 70-110 H : TE STED AT [facility] code = 1538) [address] [place] [address], [facility] 30: Housing Coordinator/Techni smiley ID = [id number] for IVÁN, FERMIN [place] Lab Interpretation (test Abnormal code = 91029-2) [facility]-Glucose [id number] 12:43:54 Test Item Value Reference Range Interpretation Comments POC-Glucose Meter (test 138 mg/dL 70-110 H : TE STED AT [facility] code = 1538) [address] [place] [address], [facility] 30: Housing Coordinator/Techni smiley ID = [id number] for IVÁN, FERMIN [place] Lab Interpretation (test Abnormal code = 71600-7) [facility]-Glucose [id number] 12:43:54 Test Item Value Reference Range Interpretation Comments POC-Glucose Meter (test 138 mg/dL 70-110 H : TE STED AT [facility] code = 1538) [address] [place] [address], [facility] 30: Housing Coordinator/Techni smiley ID = [id number] for IVÁN, FERMIN [place] Lab Interpretation (test Abnormal code = 19542-0) [facility]-Glucose [id number] 12:43:54 Test Item Value Reference Range Interpretation Comments POC-Glucose Meter (test 138 mg/dL 70-110 H : TE STED AT [facility] code = 1538) [address] [place] [address], [facility] 30: Housing Coordinator/Techni smiley ID = [id number] for IVÁN, FERMIN [place] Lab Interpretation (test Abnormal code = 74276-0) [facility]-Glucose [id number] 12:43:54 Test Item Value Reference Range Interpretation Comments POC-Glucose Meter (test 138 mg/dL 70-110 H : TE STED AT [facility] code = 1538) [address] [place], [address]: Housing Coordinator/Techni smiley ID = [id number] for IVÁN FERMIN [place] Lab Interpretation (test Abnormal code = 06590-8) [facility] [id number] 12:43:54 Test Item Value Reference Range Interpretation Comments POC-GLUCOSE METER 138 mg/dL 70-110 H : TESTED A T [facility] 6720 (BEAKER) (test code = AVINASH R [facility], 1538) [address]: Housing Coordinator/Techni smiley ID = [id number] for MANDA ESPARZA [id number] 06:54:19 Test Item Value Reference Range Interpretation Comments PHOSPHORUS (BEAKER) (test code = 4.2 mg/dL 2.3-4.7 604) Housing Coordinator ID - [id number] 06:54:18 Test Item Value Reference Range Interpretation Comments MAGNESIUM (BEAKER) (test code = 1.7 mg/dL 1.6-2.6 627) Housing Coordinator ID - ADMINCBC W/PLT COUNT & AUTO [id number] 06:00:54 Test Item Value Reference Range Interpretation [...] PERCENT (BEAKER) (test code = 2801) POCT-GLUCOSE [id number] 21:38:27 Test Item Value Reference Range Interpretation Comments POC-GLUCOSE METER 88 mg/dL 70-110 : TESTED A T [facility] 6720 (BEAKER) (test code = [facility], 153) [address]: Housing Coordinator/Techni smiley ID = [id number] for NADEGE MORALES POCT-GLUCOSE [id number] 18:19:26 Test Item Value Reference Range Interpretation Comments POC-GLUCOSE METER 93 mg/dL 70-110 : TESTED A T [facility] 6720 (BEAKER) (test code = [facility], 153) [address]: Housing Coordinator/Techni smiley ID = [id number] for NONA DENISE REESEILIA POCT-GLUCOSE [id number] 13:13:27 Test Item Value Reference Range Interpretation Comments POC-GLUCOSE METER 91 mg/dL 70-110 : TESTED A T [facility] 6720 (BEAKER) (test code = AVINASH Dunn [facility], 1538) [address]: Housing Coordinator/Techni smiley ID = [id number] for MANDA PANCHAL BLOOD [id number] 12:00:51 Test Item Value Reference Range Interpretation Comments CULTURE (BEAKER) (test No growth in 5 days code = 1095) BLOOD [id number] 12:00:51 Test Item Value Reference Range Interpretation Comments CULTURE (BEAKER) (test No growth in 5 days code = 1095) The specimen volume collected for this blood culture was below the optimum (10 mL per bottle or 20 mL total). Use of lower volumes may adversely affect recovery and/or detection times of some organisms.POCT-GLUCOSE [id number] 06:46:01 Test Item Value Reference Range Interpretation Comments POC-GLUCOSE METER 102 mg/dL 70-110 : TESTED A T [facility] 6720 (BEAKER) (test code = AVINASH [address] [place], 1538) [address]: Housing Coordinator/Techni smiley ID = [id number] for Teresa Rose [id number] 05:48:23 Test Item Value Reference Range Interpretation Comments MAGNESIUM (BEAKER) (test code = 1.8 mg/dL 1.6-2.6 627) Housing Coordinator ID - [id number] 05:48:23 Test Item Value Reference Range Interpretation Comments PHOSPHORUS (BEAKER) (test code = 3.6 mg/dL 2.3-4.7 604) Housing Coordinator ID - MARCOBASIC METABOLIC [id number] 05:48:22 Test Item Value Reference Range Interpretation [...] not appl icable for dialysis patien ts Housing Coordinator ID - MARCOCBC W/PLT COUNT & AUTO [id number] 05:10:47 Test Item Value Reference Range Interpretation [...] PERCENT (BEAKER) (test code = 2801) POCT-GLUCOSE [id number] 23:44:35 Test Item Value Reference Range Interpretation Comments POC-GLUCOSE METER 93 mg/dL 70-110 : TESTED A T [facility] 6720 (BEAKER) (test code = [facility], 1538) [address]: Housing Coordinator/Techni smiley ID = [id number] for Teresa Camejo POCT-GLUCOSE [id number] 17:35:54 Test Item Value Reference Range Interpretation Comments POC-GLUCOSE METER 108 mg/dL 70-110 : TESTED A T [facility] 6720 (BEAKER) (test code = [facility] [employer] [facility], 1538) [address]: Housing Coordinator/Techni smiley ID = [id number] for Donna Rolle BLOOD [id number] 17:01:46 Test Item Value Reference Range Interpretation Comments CULTURE (BEAKER) (test No growth in 5 days code = 1095) The specimen volume collected for this blood culture was below the optimum (10 mL per bottle or 20 mL total). Use of lower volumes may adversely affect recovery and/or detection times of some organisms.POCT-GLUCOSE [id number] 13:41:35 Test Item Value Reference Range Interpretation Comments POC-GLUCOSE METER 99 mg/dL 70-110 : TESTED A T [facility] 6720 (BEAKER) (test code = AVINASH Dunn [facility], 1538) [address]: Housing Coordinator/Techni smiley ID = [id number] for Donna Baxter BLOOD [id number] 13:01:43 Test Item Value Reference Range Interpretation Comments CULTURE (BEAKER) (test No growth in 5 days code = 1095) POCT-GLUCOSE [id number] 07:21:17 Test Item Value Reference Range Interpretation Comments POC-GLUCOSE METER 110 mg/dL 70-110 : TESTED A T [facility] 6720 (BEAKER) (test code = AVINASH Dunn [facility], 1538) [address]: Housing Coordinator/Techni smiley ID = [id number] for Teresa Rose BASIC METABOLIC [id number] 05:31:26 Test Item Value Reference Range Interpretation [...] not appl icable for dialysis patien ts Housing Coordinator ID - [id number] 05:31:26 Test Item Value Reference Range Interpretation Comments MAGNESIUM (BEAKER) (test code = 2.0 mg/dL 1.6-2.6 627) Housing Coordinator ID - [id number] 05:31:26 Test Item Value Reference Range Interpretation Comments PHOSPHORUS (BEAKER) (test code = 3.6 mg/dL 2.3-4.7 604) Housing Coordinator ID - MARCOCBC W/PLT COUNT & AUTO [id number] 04:56:52 Test Item Value Reference Range Interpretation [...] PERCENT (BEAKER) (test code = 2801) POCT-GLUCOSE [id number] 00:26:59 Test Item Value Reference Range Interpretation Comments POC-GLUCOSE METER 135 mg/dL 70-110 H : TESTED A T [facility] 6720 (BEAKER) (test code = [facility], 153) [address]: Housing Coordinator/Techni smiley ID = [id number] for Teresa Rose POCT-GLUCOSE [id number] 17:22:27 Test Item Value Reference Range Interpretation Comments POC-GLUCOSE METER 127 mg/dL 70-110 H : TESTED A T [facility] 6720 (BEAKER) (test code = [facility], 1538) [address]: Housing Coordinator/Techni smiley ID = [id number] for Um eh, [place]umb[place] POCT-GLUCOSE [id number] 17:20:21 Test Item Value Reference Range Interpretation Comments POC-GLUCOSE METER 23 mg/dL 70-110 LL : TESTED A T [facility] 6720 (BEAKER) (test code = [facility], 1538) [address]: Housing Coordinator/Techni smiley ID = [id number] for Umeh , [place] POCT-GLUCOSE [id number] 12:34:42 Test Item Value Reference Range Interpretation Comments POC-GLUCOSE METER 129 mg/dL 70-110 H : TESTED A T [facility] 6720 (BEAKER) (test code = [facility], 1538) [address]: Housing Coordinator/Techni smiley ID = [id number] for Um eh, [place] [id number] 08:08:41 Test Item Value Reference Range Interpretation Comments MAGNESIUM (BEAKER) (test code = 1.9 mg/dL 1.6-2.6 627) Housing Coordinator ID - [id number] 08:08:41 Test Item Value Reference Range Interpretation Comments PHOSPHORUS (BEAKER) (test code = 3.5 mg/dL 2.3-4.7 604) Housing Coordinator ID - ADMINBASIC METABOLIC [id number] 08:08:40 Test Item Value Reference Range Interpretation [...] not appl icable for dialysis patien ts Housing Coordinator ID - ADMINPOCT-GLUCOSE [id number] 07:08:26 Test Item Value Reference Range Interpretation Comments POC-GLUCOSE METER 119 mg/dL 70-110 H : TESTED A T [facility] 6720 (BEAKER) (test code = AVINASH [address] [place], 1538) [address]: Housing Coordinator/Techni smiley ID = [id number] for Teresa Rose CBC W/PLT COUNT & AUTO [id number] 06:25:01 Test Item Value Reference Range Interpretation [...] PERCENT (BEAKER) (test code = 2801) POCT-GLUCOSE [id number] 23:32:08 Test Item Value Reference Range Interpretation Comments POC-GLUCOSE METER 97 mg/dL 70-110 : TESTED A T [facility] 6720 (BEAKER) (test code = [facility], 153) 30924: Housing Coordinator/Techni smiley ID = [id number] for Teresa Camejo POCT-GLUCOSE [id number] 17:52:25 Test Item Value Reference Range Interpretation Comments POC-GLUCOSE METER 121 mg/dL 70-110 H : TESTED A T [facility] 6720 (BEAKER) (test code = [facility], 1538) 01175: Housing Coordinator/Techni smiley ID = [id number] for An Donna lucas POCT-GLUCOSE [id number] 12:24:17 Test Item Value Reference Range Interpretation Comments POC-GLUCOSE METER 106 mg/dL 70-110 : TESTED A T [facility] ([facility]) (test code = [facility], 153) [address]: Housing Coordinator/Techni smiley ID = [id number] for An Donna lucas VANCOMYCIN LEVEL, [id number] 10:00:44 Test Item Value Reference Range Interpretation Comments VANCOMYCIN TROUGH (AKER) (test 35.0 ug/mL 10.0-20.0 HH code = 522) Housing Coordinator ID - ADMINPOCT-GLUCOSE [id number] 06:04:34 Test Item Value Reference Range Interpretation Comments POC-GLUCOSE METER 98 mg/dL 70-110 : TESTED A T [facility] 6720 (BEAKER) (test code = [facility], [facility]) [address]: Housing Coordinator/Techni smiley ID = [id number] for Andi Warren [id number] 04:34:22 Test Item Value Reference Range Interpretation Comments PHOSPHORUS (BEAKER) (test code = 4.3 mg/dL 2.3-4.7 604) Housing Coordinator ID - mmBASIC METABOLIC [id number] 04:34:21 Test Item Value Reference Range Interpretation [...] not appl icable for dialysis patien ts Housing Coordinator ID - [id number] 04:34:21 Test Item Value Reference Range Interpretation Comments MAGNESIUM (BEAKER) (test code = 2.0 mg/dL 1.6-2.6 627) Housing Coordinator ID - mmCBC W/PLT COUNT & AUTO [id number] 04:15:17 Test Item Value Reference Range Interpretation [...] PERCENT (BEAKER) (test code = 2801) POCT-GLUCOSE [id number] 00:10:22 Test Item Value Reference Range Interpretation Comments POC-GLUCOSE METER 102 mg/dL 70-110 : TESTED A T [facility] 6720 (BEAKER) (test code [facility], = 1538) [address]: Housing Coordinator/Techni smiley ID = [id number] for Andi Warren BASIC METABOLIC [id number] 19:00:42 Test Item Value Reference Range Interpretation [...] not appl icable for dialysis patien ts Housing Coordinator ID - JSPOCT-GLUCOSE [id number] 17:28:38 Test Item Value Reference Range Interpretation Comments POC-GLUCOSE METER 122 mg/dL 70-110 H : TESTED A T [facility] 6720 (BEAKER) ([facility], 1538) [address]: Housing Coordinator/Techni smiley ID = [id number] for An dermarium, Donna POCT-GLUCOSE [id number] 12:36:44 Test Item Value Reference Range Interpretation Comments POC-GLUCOSE METER 110 mg/dL 70-110 : TESTED A T [facility] 6720 (BEAKER) (test code = [facility] Mona [facility], 1538) 324[address]: Housing Coordinator/Techni smiley ID = [id number] for An derson, Donna [id number] 06:20:37 Test Item Value Reference Range Interpretation Comments MAGNESIUM (BEAKER) (test code = 2.2 mg/dL 1.6-2.6 627) Housing Coordinator ID - [id number] 06:20:37 Test Item Value Reference Range Interpretation Comments PHOSPHORUS (BEAKER) (test code = 3.9 mg/dL 2.3-4.7 604) Housing Coordinator ID - ADMINBASIC METABOLIC [id number] 06:20:36 Test Item Value Reference Range Interpretation [...] not appl icable for dialysis patien ts Housing Coordinator ID - ADMINPOCT-GLUCOSE [id number] 06:09:53 Test Item Value Reference Range Interpretation Comments POC-GLUCOSE METER 69 mg/dL 70-110 L : TESTED A T [facility] 6720 (BEAKER) (test code = [facility] [place], 1538) [address]: Housing Coordinator/Techni smiley ID = [id number] for Andi Warren CBC W/PLT COUNT & AUTO [id number] 05:15:05 Test Item Value Reference Range Interpretation [...] = 2801) XR abdomen / KUB 1 [id number] 21:59:17EXAM/TECHNIQUE: XR ABDOMEN/KUB 1 VIEW PORTABLE INDICATION: Confirm corpak placement COMPARISON: 11/05/2022. FINDINGS: Feeding tube terminates in the distal stomach. No dilated loops of largesmall bowel.No acute osseous process. Lung bases are clear.[facility] XR abdomen / KUB 1 [id number] 21:59:17EXAM/TECHNIQUE: XR ABDOMEN/KUB 1 VIEW PORTABLE INDICATION: Confirm corpak placement COMPARISON: 11/05/2022. FINDINGS: Feeding tube terminates in the distal stomach. No dilated loops of largesmall bowel.No acute osseous process. Lung bases are clear.[facility] XR ABDOMEN/KUB 1 VIEW [id number] 21:59:17 [facility] : 1975 Sex: FEXAM/TECHNIQUE: XR ABDOMEN/KUB 1 VIEW PORTABLEINDICATION: Confirm corpak placementCOMPARISON: 11/05/2022.FINDINGS: Feeding tube terminates in the distal stomach. No dilated loops of largesmall bowel. No acute osseous process. Lung bases are clear.IMPRESSION:Feeding tube terminates in the distal stomach.Electronically Signed By: Carlos Preciado11/07/2022 22:01 CDTWorkstation Name: [id number] METABOLIC [id number] 18:29:04 Test Item Value Reference Range Interpretation [...] not appl icable for dialysis patien ts Housing Coordinator ID - BSDrug screen, urine, [id number] 08:47:31 Test Item Value Reference Range Interpretation Comments Scan Result (test see scanned report See scanned report. code = 6720758) SUE (test code = see scanned report SUE) [facility], [id number] 08:47:31 Test Item Value Reference Range Interpretation Comments Scan Result (test see scanned report See scanned report. code = 8699074) SUE (test code = see scanned report SUE) [facility] urine, [id number] 08:47:31 Test Item Value Reference Range Interpretation Comments Scan Result (test see scanned report See scanned report. code = 4194665) SUE (test code = see scanned report SUE) [facility], [id number] 08:47:31 Test Item Value Reference Range Interpretation Comments Scan Result (test see scanned report See scanned report. code = 3964564) SUE (test code = see scanned report SUE) [facility], [id number] 08:47:31 Test Item Value Reference Range Interpretation Comments Scan Result (test see scanned report See scanned report. code = 9217875) SUE (test code = see scanned report SUE) [facility]EN, URINE, [id number] 08:47:31 Test Item Value Reference Range Interpretation Comments SCAN RESULT (test see scanned report See scanned report. code = 1230326) see scanned reportPOCT-GLUCOSE [id number] 06:13:13 Test Item Value Reference Range Interpretation Comments POC-GLUCOSE METER 81 mg/dL 70-110 : TESTED A T [facility] 67[facility] (BEAKER) (test code = [facility] [place], 1538) 12[address]: Housing Coordinator/Techni smiley ID = [id number] for Jessica Rodrigues [id number] 04:03:55 Test Item Value Reference Range Interpretation Comments PHOSPHORUS (BEAKER) (test code = 4.8 mg/dL 2.3-4.7 H 604) Housing Coordinator ID - EMBASIC METABOLIC [id number] 04:03:54 Test Item Value Reference Range Interpretation [...] not appl icable for dialysis patien ts Housing Coordinator ID - [id number] 04:03:54 Test Item Value Reference Range Interpretation Comments MAGNESIUM (BEAKER) (test code = 2.4 mg/dL 1.6-2.6 627) Housing Coordinator ID - EMHIGH SENSITIVITY TROPONIN [id number] 03:58:57 Test Item Value Reference Range Interpretation Comments HIGH SENSITIVITY 165 pg/ml See_Comment H [Automated message] TROPONIN I (test code The sy stem which = 9783354) generated this result transmitted ref erence range: <=17. Th e reference range was not used to int erpret this result as normal/abnormal . Housing Coordinator ID - EMThe BANKMAN STAT High Sensitivity Troponin-I results should be used in conjunctionwith other diagnostic information such as ECG, clinical observations and information, and patient symptoms to aid in the diagnosis of ND.CBC W/PLT COUNT & AUTO [id number] 03:38:52 Test Item Value Reference Range Interpretation [...] PERCENT (BEAKER) (test code = 2801) POCT-GLUCOSE [id number] 00:25:14 Test Item Value Reference Range Interpretation Comments POC-GLUCOSE METER 88 mg/dL 70-110 : TESTED A T [facility] 67[facility] (BEAKER) (test code = [facility] Dunn [facility], 1538) [address]: Housing Coordinator/Techni smiley ID = [id number] for Elia Rodriguesy HIGH SENSITIVITY TROPONIN [id number] 22:04:24 Test Item Value Reference Range Interpretation Comments HIGH SENSITIVITY 193 pg/ml See_Comment H [Automated message] TROPONIN I (test code The sy stem which = 7338475) generated this result transmitted ref erence range: <=17. Th e reference range was not used to int erpret this result as normal/abnormal . Housing Coordinator ID - DBThe BANKMAN STAT High Sensitivity Troponin-I results should be used in conjunctionwith other diagnostic information such as ECG, clinical observations and information, and patient symptoms to aid in the diagnosis of ND.Urinalysis w/Microscopic + Reflex to [id number] 15:49:18 Test Item Value Reference Range Interpretation Comments Color, UA (test code Yellow = 5778-6) Clarity, UA (test Cloudy code = 5767-9) Specific Alverda, UA 1.021 1.001-1.035 (test code = 5811-5) pH, UA (test code = 6.0 5.0-8.0 5803-2) Protein, UA (test 70 mg/dL Negative A code = 26748-5) Glucose, UA (test Negative Negative code = 365) Ketones, UA (test Negative Negative code = 2514-8) Bilirubin, UA (test Negative Negative code = 87502-3) Blood, UA (test code Moderate Negative A = 69173-0) Nitrite, UA (test Negative Negative code = 5802-4) Leukocytes, UA (test Trace Negative A code = 5799-2) Urobilinogen, UA 0.2 0.2-1.0 (test code = 88239-9) RBC, UA (test code = 23 See_Comment [Autom ated 23885-8) message] The system which generated this result [...] 6 See_Comment [Automate d (test code = 04831-1) messag e] The system which generated this result transmit markie reference range : /HPF. The reference range was not used to interpret this result as normal/abnormal . Hyaline Casts, UA 1 See_Comment [Automate d (test code = 26653-1) messag e] The system which generated this result transmit markie reference range : /LPF. The reference range was not used to interpret this result as normal/abnormal . Specimen Source (test code = 2795) SUE (test code = SUE) Housing Coordinator ID - [auto]Housing Coordinator ID - bs Lab Interpretation Abnormal (test code = 75294-8) [facility] + Reflex to Culture 2022-11-06 15:49:18 Test Item Value Reference Range Interpretation Comments Color, UA (test code Yellow = 5778-6) Clarity, UA (test Cloudy code = 5767-9) Specific Alverda, UA 1.021 1.001-1.035 (test code = 5811-5) pH, UA (test code = 6.0 5.0-8.0 5803-2) Protein, UA (test 70 mg/dL Negative A code = 24586-3) Glucose, UA (test Negative Negative code = 365) Ketones, UA (test Negative Negative code = 2514-8) Bilirubin, UA (test Negative Negative code = 73894-7) Blood, UA (test code Moderate Negative A = 30706-0) Nitrite, UA (test Negative Negative code = 5802-4) Leukocytes, UA (test Trace Negative A code = 5799-2) Urobilinogen, UA 0.2 0.2-1.0 (test code = 12530-5) RBC, UA (test code = 23 See_Comment [Autom ated 70674-5) message] The system which generated this result [...] 6 See_Comment [Automate d (test code = 85128-4) messag e] The system which generated this result transmit markie reference range : /HPF. The reference range was not used to interpret this result as normal/abnormal . Hyaline Casts, UA 1 See_Comment [Automate d (test code = 61651-9) messag e] The system which generated this result transmit markie reference range : /LPF. The reference range was not used to interpret this result as normal/abnormal . Specimen Source (test code = 2795) SUE (test code = SUE) Housing Coordinator ID - [auto]Housing Coordinator ID - bs Lab Interpretation Abnormal (test code = 69420-3) [facility] Reflex to Culture 2022-11-06 15:49:18 Test Item Value Reference Range Interpretation Comments Color, UA (test code Yellow = 5778-6) Clarity, UA (test Cloudy code = 5767-9) Specific Alverda, UA 1.021 1.001-1.035 (test code = 5811-5) pH, UA (test code = 6.0 5.0-8.0 5803-2) Protein, UA (test 70 mg/dL Negative A code = 48900-0) Glucose, UA (test Negative Negative code = 365) Ketones, UA (test Negative Negative code = 2514-8) Bilirubin, UA (test Negative Negative code = 38622-9) Blood, UA (test code Moderate Negative A = 79017-7) Nitrite, UA (test Negative Negative code = 5802-4) Leukocytes, UA (test Trace Negative A code = 5799-2) Urobilinogen, UA 0.2 0.2-1.0 (test code = 85408-5) RBC, UA (test code = 23 See_Comment [Autom ated 12095-9) message] The system which generated this result [...] 6 See_Comment [Automate d (test code = 22544-9) messag e] The system which generated this result transmit markie reference range : /HPF. The reference range was not used to interpret this result as normal/abnormal . Hyaline Casts, UA 1 See_Comment [Automate d (test code = 17753-2) messag e] The system which generated this result transmit markie reference range : /LPF. The reference range was not used to interpret this result as normal/abnormal . Specimen Source (test code = 2795) SUE (test code = SUE) Housing Coordinator ID - [auto]Housing Coordinator ID - bs Lab Interpretation Abnormal (test code = 44243-7) [facility] Reflex to Culture 2022-11-06 15:49:18 Test Item Value Reference Range Interpretation Comments Color, UA (test code Yellow = 5778-6) Clarity, UA (test Cloudy code = 5767-9) Specific Alverda, UA 1.021 1.001-1.035 (test code = 5811-5) pH, UA (test code = 6.0 5.0-8.0 5803-2) Protein, UA (test 70 mg/dL Negative A code = 25236-2) Glucose, UA (test Negative Negative code = 365) Ketones, UA (test Negative Negative code = 2514-8) Bilirubin, UA (test Negative Negative code = 83877-3) Blood, UA (test code Moderate Negative A = 59898-3) Nitrite, UA (test Negative Negative code = 5802-4) Leukocytes, UA (test Trace Negative A code = 5799-2) Urobilinogen, UA 0.2 0.2-1.0 (test code = 02485-1) RBC, UA (test code = 23 See_Comment [Autom ated 49326-5) message] The system which generated this result [...] 6 See_Comment [Automate d (test code = 36200-5) messag e] The system which generated this result transmit markie reference range : /HPF. The reference range was not used to interpret this result as normal/abnormal . Hyaline Casts, UA 1 See_Comment [Automate d (test code = 12461-7) messag e] The system which generated this result transmit markie reference range : /LPF. The reference range was not used to interpret this result as normal/abnormal . Specimen Source (test code = 2795) SUE (test code = SUE) Housing Coordinator ID - [auto]Housing Coordinator ID - bs Lab Interpretation Abnormal (test code = 96336-4) [facility] + Reflex to Culture 2022-11-06 15:49:18 Test Item Value Reference Range Interpretation Comments Color, UA (test code Yellow = 5778-6) Clarity, UA (test Cloudy code = 5767-9) Specific Alverda, UA 1.021 1.001-1.035 (test code = 5811-5) pH, UA (test code = 6.0 5.0-8.0 5803-2) Protein, UA (test 70 mg/dL Negative A code = 70342-3) Glucose, UA (test Negative Negative code = 365) Ketones, UA (test Negative Negative code = 2514-8) Bilirubin, UA (test Negative Negative code = 16797-1) Blood, UA (test code Moderate Negative A = 54953-1) Nitrite, UA (test Negative Negative code = 5802-4) Leukocytes, UA (test Trace Negative A code = 5799-2) Urobilinogen, UA 0.2 0.2-1.0 (test code = 86782-3) RBC, UA (test code = 23 See_Comment [Autom ated 37451-2) message] The system which generated this result [...] 6 See_Comment [Automate d (test code = 59955-8) messag e] The system which generated this result transmit markie reference range : /HPF. The reference range was not used to interpret this result as normal/abnormal . Hyaline Casts, UA 1 See_Comment [Automate d (test code = 07497-8) messag e] The system which generated this result transmit markie reference range : /LPF. The reference range was not used to interpret this result as normal/abnormal . Specimen Source (test code = 2795) SUE (test code = SUE) Housing Coordinator ID - [auto]Housing Coordinator ID - bs Lab Interpretation Abnormal (test code = 22149-9) [facility]FLEX URINE [id number] 15:49:18 Test Item Value Reference Range Interpretation [...] /LPF 514) SOURCE(BEAKER) (test code = 2795) Housing Coordinator ID - [auto]Housing Coordinator ID - bsPT/[id number] 15:35:00 Test Item Value Reference Range Interpretation [...] patients with mechanical heart valves.HIGH SENSITIVITY TROPONIN [id number] 15:30:15 Test Item Value Reference Range Interpretation Comments HIGH SENSITIVITY 264 pg/ml See_Comment H [Automated message] TROPONIN I (test code The sy stem which = 6911238) generated this result transmitted ref erence range: <=17. Th e reference range was not used to int erpret this result as normal/abnormal . Housing Coordinator ID - ADMINThe BANKMAN STAT High Sensitivity Troponin-I results should be used in conjunction with other diagnostic information such as ECG, clinical observations and information, and patientsymptoms to aid in the diagnosis of ND. Blood gas, [id number] 15:09:57 Test Item Value Reference Range Interpretation Comments pH, Arterial (test code 7.40 7.35-7.45 = 2744-1) pCO2, Arterial (test 44 See_Comment [Autom ated message] code = 2018-10) The system [facility] generated this result transmit markie reference range : 35 - 45 mm Hg. The reference range was not used to interpret this result as normal/abnormal . pO2, Arterial (test 195 See_Comment H [Automa markie message] code = 2703-7) The system [facility] generated this result transmit markie reference [...] 36.0 Lab Interpretation Abnormal (test code = 64267-7) [facility] Center[facility], [id number] 15:09:57 Test Item Value Reference Range Interpretation Comments pH, Arterial (test code 7.40 7.35-7.45 = 2744-1) pCO2, Arterial (test 44 See_Comment [Autom ated message] code = 2019) The system [facility] generated this result transmit markie reference range : 35 - 45 mm Hg. The reference range was not used to interpret this result as normal/abnormal . pO2, Arterial (test 195 See_Comment H [Automa markie message] code = 2703-7) The system [employer] generated this result transmit markie reference range [...] 36.0 Lab Interpretation Abnormal (test code = 13199-5) [facility] Center[facility], [id number] 15:09:57 Test Item Value Reference Range Interpretation Comments pH, Arterial (test code 7.40 7.35-7.45 = 2744-1) pCO2, Arterial (test 44 See_Comment [Autom ated message] code = 2018-10) The system [employer] generated this result transmit markie reference range : 35 - 45 mm Hg. The reference range was not used to interpret this result as normal/abnormal . pO2, Arterial (test 195 See_Comment H [Automa markie message] code = 2703-7) The system [employer] generated this result transmit markie reference range [...] 36.0 Lab Interpretation Abnormal (test code = 26352-6) [facility] Center[facility], [id number] 15:09:57 Test Item Value Reference Range Interpretation Comments pH, Arterial (test code 7.40 7.35-7.45 = 2744-1) pCO2, Arterial (test 44 See_Comment [Autom ated message] code = 2019-) The system [employer] generated this result transmit markie reference range : 35 - 45 mm Hg. The reference range was not used to interpret this result as normal/abnormal . pO2, Arterial (test 195 See_Comment H [Automa markie message] code = 2703-7) The system [employer] generated this result transmit markie reference range [...] 36.0 Lab Interpretation Abnormal (test code = 64506-0) [facility], [id number] 15:09:57 Test Item Value Reference Range Interpretation Comments pH, Arterial (test code 7.40 7.35-7.45 = 2744-1) pCO2, Arterial (test 44 See_Comment [Autom ated message] code = 2019-8) The system [employer] generated this result transmit markie reference range : 35 - 45 mm Hg. The reference range was not used to interpret this result as normal/abnormal . pO2, Arterial (test 195 See_Comment H [Automa markie message] code = 2703-7) The system [employer] generated this result transmit markie reference range [...] 36.0 Lab Interpretation Abnormal (test code = 21460-6) [facility] CenterBLOOD GAS, [id number] 15:09:57 Test Item Value Reference Range Interpretation [...] (test code = 1819) 36.0 ECG 12 [id number] 13:44:42Ventricular Rate 62 BPMAtrial Rate 62 BPMP-R Interval 180 msQRS Duration 90 msQ-T Interval 454 msQTCCalculation(Bazett) 460 msP Ridge 19 degreesR Ridge 64 degreesT Ridge 254 degrees Normal sinus rhythmPos sible Left atrial enlargementLeft ventricular hypertrophy with repolarization abnormalityAbnormal ECGWhen compared with ECG of 01-AUG-2022 10:14,ST now depressed in Inferior leadsT wave inversion more evident in Inferior leads Confirmed by MD MELVIN, DANII ([id number]) on 11/06/2022 1:44:41 [facility] 12 [id number] 13:44:42Ventricular Rate 62 BPMAtrial Rate 62 BPMP-R Interval 180 msQRS Duration 90 msQ-T Interval 454 msQTC Calculation(Bazett) 460 msP Ridge 19 degreesR Ridge 64 degreesT Ridge 254 degrees Normal sinus rhythmPossible Left atrial enlargementLeft ventricular hypertrophy with repolarization abnormalityAbnormal ECGWhen compared with ECG of 01-AUG-2022 10:14,ST now depressed in Inferior leadsT wave inversion more evident in Inferior leads Confirmed by MD CHARLES YOCHAI (1903) on 11/06/2022 1:44:41 PM [facility] 12 [id number] 13:44:42Ventricular Rate 62 BPMAtrial Rate 62 BPMP-R Interval 180 msQRS Duration 90 msQ-T Interval 454 msQTC Calculation(Bazett) 460 msP Ridge 19 degreesR Ridge 64 degreesT Ridge 254 degrees Normal sinus rhythmPossible Left atrial enlargementLeft ventricular hypertrophy with repolarization abnormalityAbnormal ECGWhen compared with ECG of 01-AUG-2022 10:14,ST now depressed in Inferior leadsT wave inversion more evident in Inferior leads Confirmed by MD CHARLES YOCHAI (1903) on 11/06/2022 1:44:41 PM [facility] 12 [id number] 13:44:42Ventricular Rate 62 BPMAtrial Rate 62 BPMP-R Interval 180 msQRS Duration 90 msQ-T Interval 454 msQTC Calculation(Bazett) 460 msP Ridge 19 degreesR Ridge 64 degreesT Ridge 254 degrees Normal sinus rhythmPossible Left atrial enlargementLeft ventricular hypertrophy with repolarization abnormalityAbnormal ECGWhen compared with ECG of 01-AUG-2022 10:14,ST now depressed in Inferior leadsT wave inversion more evident in Inferior leads Confirmed by MD CHARLES YOCHAI (1903) on 11/06/2022 1:44:41 PM [facility] 12 [id number] 13:44:42Ventricular Rate 62 BPMAtrial Rate 62 BPMP-R Interval 180 msQRS Duration 90 msQ-T Interval 454 msQTC Calculation(Bazett) 460 msP Ridge 19 degreesR Ridge 64 degreesT Ridge 254 degrees Normal sinus rhythmPossible Left atrial enlargementLeft ventricular hypertrophy with repolarization abnormalityAbnormal ECGWhen compared with ECG of 01-AUG-2022 10:14,ST now depressed in Inferior leadsT wave inversion more evident in Inferior leads Confirmed by MD CHARLES YOCHAI (1903) on 11/06/2022 1:44:41 PM [facility] 1 view portable / [id number] 13:38:36 Chest, 1 view, 11/06/2022 11:58 AM. History: r/o aspiration pneumonia. Comparison: 10/30/2022. Discussion: The cardiac silhouette is prominent but stable. Lungs areclear. There is no pneumothorax. Feeding tube terminates below thehemidiaphragm. Right IJ central line is no longer present. There are noacute osseous findings.[facility] CenterXR [facility] 1 view portable / bedside 2022-11-06 13:38:36Chest, 1 view, 11/06/2022 11:58 AM. History: r/o aspiration pneumonia. Comparison: 10/30/2022. Discussion: The cardiac silhouette is prominent but stable. Lungs areclear. There is no pneumothorax. Feeding tube terminates below thehemidiaphragm. Right IJ central line is no longer present. There are noacute osseous findings.[facility] CenterXR CHEST 1 VIEW PORTABLE / [id number] 13:38:36 [facility] : 1975 Sex: FChest, 1 view, 11/06/2022 11:58 AM.History: r/o aspiration pneumonia.Comparison: 10/30/2022.Discussion: Thecardiac silhouette is prominent but stable. Lungs areclear. There is no pneumothorax. Feeding tube terminates below thehemidiaphragm. Right IJ central line is no longer present. There are noacute osseous findings.IMPRESSION:No acute pulmonary findings.Electronically Signed By: Sage Caruso11/06/2022 13:40 CDTWorkstation Name: [id number] 2022-11-06 11:32:33 Test Item Value Reference Range Interpretation Comments PROCALCITONIN (BEAKER) (test code 0.31 ng/mL <0.05 H = 3036) SEPSIS RISK (ng/mL)Low: 0.05-0.50Intermediate: 0.51-2.00High: >=2.01HIGH SENSITIVITY TROPONIN [id number] 11:27:53 Test Item Value Reference Range Interpretation Comments HIGH SENSITIVITY 344 pg/ml See_Comment H [Automated message] TROPONIN I (test code The stem which = 4671156) generated this result transmitted ref erence range: <=17. Th e reference range was not used to int erpret this result as normal/abnormal . Housing Coordinator ID - DAMIÁN WThe BANKMAN STAT High Sensitivity Troponin-I results should be used in conjunction with other diagnostic information such as ECG, clinical observations and information, and patient symptoms to aid in the diagnosis of ND.LACTIC ACID, [id number] 11:07:17 Test Item Value Reference Range Interpretation Comments LACTATE BLOOD VENOUS (2) (BEAKER) 0.80 mmol/L 0.50-2.00 (test code = 2872) Housing Coordinator ID - DAMIÁN WCT BRAIN WITHOUT IV [id number] 10:59:53 [facility] : 1975 Sex: F [...] Signed By: Alexandra Liang11/06/2022 11:01 CDTWorkstation Name: [id number] 10:57:58 Test Item Value Reference Range Interpretation Comments POC-Glucose (test code = 117 mg/dL 70-110 H : T ESTED AT [facility] 1855) [address] [facility], 770 30: Housing Coordinator/Techni smiley ID = [id number] for RACELIS, SHELBY INE Lab Interpretation (test Abnormal code = 73653-5) [id number] 10:57:58 Test Item Value Reference Range Interpretation Comments POC-Hematocrit (test code 34 % 36-45 L : = 1857) Housing Coordinator/Techni smiley ID = [id number] for RACELIS, SHELBY INE Lab Interpretation (test Abnormal code = 63524-1) [facility] [id number] 10:57:58 Test Item Value Reference Range Interpretation Comments POC-Glucose (test code = 117 mg/dL 70-110 H : T ESTED AT [facility] 1855) [address] [facility], 770 30: Housing Coordinator/Techni smiley ID = [id number] for RACELIS, SHELBY INE Lab Interpretation (test Abnormal code = 36704-0) [facility]-[id number] 10:57:58 Test Item Value Reference Range Interpretation Comments POC-Hematocrit (test code 34 % 36-45 L : = 1857) Housing Coordinator/Techni smiley ID = [id number] for RACELIS, SHELBY INE Lab Interpretation (test Abnormal code = 25829-1) [facility] [id number] 10:57:58 Test Item Value Reference Range Interpretation Comments POC-Glucose (test code = 117 mg/dL 70-110 H : T ESTED AT [facility] 1855) [address] [place] [address], 770 30: Housing Coordinator/Techni smiley ID = [id number] for RACELIS, SHELBY INE Lab Interpretation (test Abnormal code = 65550-8) [facility]-[id number] 10:57:58 Test Item Value Reference Range Interpretation Comments POC-Hematocrit (test code 34 % 36-45 L : = 1857) Housing Coordinator/Techni smiley ID = [id number] for RACELIS, SHELBY INE Lab Interpretation (test Abnormal code = 65487-7) [facility] Xwsughz6585-98-07 10:57:58 Test Item Value Reference Range Interpretation Comments POC-Glucose (test code = 117 mg/dL 70-110 H : T ESTED AT [facility] 1855) [address] [place] [address], 770 30: Housing Coordinator/Techni smiley ID = [id number] for RACELIS, SHELBY INE Lab Interpretation (test Abnormal code = 56770-4) [facility]-[id number] 10:57:58 Test Item Value Reference Range Interpretation Comments POC-Hematocrit (test code 34 % 36-45 L : = 1857) Housing Coordinator/Techni smiley ID = [id number] for RACELIS, SHELBY INE Lab Interpretation (test Abnormal code = 94393-8) [facility] Zdedjxy5467-82-71 10:57:58 Test Item Value Reference Range Interpretation Comments POC-Glucose (test code = 117 mg/dL 70-110 H : T ESTED AT [facility] 1855) [address] [place] [address], 770 30: Housing Coordinator/Techni smiley ID = [id number] for RACELIS, SHELBY INE Lab Interpretation (test Abnormal code = 71563-2) [facility]-[id number] 10:57:58 Test Item Value Reference Range Interpretation Comments POC-Hematocrit (test code 34 % 36-45 L : = 1857) Housing Coordinator/Techni smiley ID = [id number] for RACELIS, SHELBY INE Lab Interpretation (test Abnormal code = 23889-3) [facility]gicgaXFQA-[id number] 10:57:58 Test Item Value Reference Range Interpretation Comments POC-HEMATOCRIT 34 % 36-45 L : Housing Coordinator/Te chnician ID = (WESLEY) (test code = 030470 for RACELIS, 1857) SAMY NQWP-[id number] 10:57:58 Test Item Value Reference Range Interpretation Comments POC-GLUCOSE (WESLEY) 117 mg/dL 70-110 H : TESTE D AT [facility] 6720 (test code = 1855) [facility], [address]: Housing Coordinator/Techni smiley ID = [id number] for RACE LIS SAMY EZS-Wucowxcsd0024-28-22 10:57:57 Test Item Value Reference Range Interpretation Comments POC-Potassium (test code 5.5 meq/L 3.6-5.5 : T ESTED AT [facility] = 1540) [address] [facility], 770 30: Housing Coordinator/Techni smiley ID = [id number] for RACELIS, SHELBY INE Lab Interpretation (test Normal code = 10140-4) [facility]-[id number] 10:57:57 Test Item Value Reference Range Interpretation Comments POC-Hemoglobin (test code 11.6 g/dL 12.0-15.0 L : TESTED AT [facility] = 1856) [address] [facility], 770 30: Housing Coordinator/Techni smiley ID = [id number] for RACELIS, SHELBY INE Lab Interpretation (test Abnormal code = 39393-6) [facility]-Rtawooqjl3785-95-34 10:57:57 Test Item Value Reference Range Interpretation Comments POC-Potassium (test code 5.5 meq/L 3.6-5.5 : T ESTED AT [facility] = 1540) [address] [place] [address], 770 30: Housing Coordinator/Techni smiley ID = [id number] for RACELIS, SHELBY INE Lab Interpretation (test Normal code = 51776-8) [facility]-[id number] 10:57:57 Test Item Value Reference Range Interpretation Comments POC-Hemoglobin (test code 11.6 g/dL 12.0-15.0 L : TESTED AT [facility] = 1856) [address] [place] [address], 770 30: Housing Coordinator/Techni smiley ID = [id number] for RACELIS, SHELBY INE Lab Interpretation (test Abnormal code = 24101-5) [facility]-Xjfkcdlfu5253-72-13 10:57:57 Test Item Value Reference Range Interpretation Comments POC-Potassium (test code 5.5 meq/L 3.6-5.5 : T ESTED AT [facility] = 1540) [address] [place] [address], [facility] 30: Housing Coordinator/Techni smiley ID = [id number] for RACELIS, SHELBY INE Lab Interpretation (test Normal code = 36911-7) [facility]-HQCIZFTYGM7209-50-05 10:57:57 Test Item Value Reference Range Interpretation Comments POC-Hemoglobin (test code 11.6 g/dL 12.0-15.0 L : TESTED AT [facility] = 1856) [address] [place] [address], [facility] 30: Housing Coordinator/Techni smiley ID = [id number] for RACELIS, SHELBY INE Lab Interpretation (test Abnormal code = 29321-1) [facility]-Bblmavelv8299-09-26 10:57:57 Test Item Value Reference Range Interpretation Comments POC-Potassium (test code 5.5 meq/L 3.6-5.5 : T ESTED AT [facility] = 1540) [address] [place] [address], [facility] 30: Housing Coordinator/Techni smiley ID = [id number] for RACELIS, SHELBY INE Lab Interpretation (test Normal code = 74806-4) [facility]-[id number] 10:57:57 Test Item Value Reference Range Interpretation Comments POC-Hemoglobin (test code 11.6 g/dL 12.0-15.0 L : [facility] 18[facility] [address] [place] [address], [facility] 30: Housing Coordinator/Techni smiley ID = [id number] for RACELIS, SHELBY INE Lab Interpretation (test Abnormal code = 24916-1) [facility]-Uexbxzcjc2904-40-82 10:57:57 Test Item Value Reference Range Interpretation Comments POC-Potassium (test code 5.5 meq/L 3.6-5.5 : T ESTED AT [facility] = 1540) [address] [place] [address], 770 30: Housing Coordinator/Techni smiley ID = [id number] for RACELIS, SHELBY INE Lab Interpretation (test Normal code = 88524-6) [facility] CenterKywjedKTLM-[id number] 10:57:57 Test Item Value Reference Range Interpretation Comments POC-Hemoglobin (test code 11.6 g/dL 12.0-15.0 L : TESTED AT [facility] = 1856) [address] [place] [address], 770 30: Housing Coordinator/Techni smiley ID = [id number] for RACELIS, SHELYB INE Lab Interpretation (test Abnormal code = 33158-2) [facility] CenterPOCT-[id number] 10:57:57 Test Item Value Reference Range Interpretation Comments POC-POTASSIUM 5.5 meq/L 3.6-5.5 : TESTED AT [facility] 6720 (BEAKER) (test code [facility], = 1540) [address]: Housing Coordinator/Techni smiley ID = [id number] for RACE SAMY GUPTA DXJW-[id number] 10:57:57 Test Item Value Reference Range Interpretation Comments POC-HEMOGLOBIN 11.6 g/dL 12.0-15.0 L : TESTED AT [facility] 6720 (BEAKER) (test code [facility], = 1856) [address]: Housing Coordinator/Techni smiley ID = [id number] for RACE SHELBY GUPTAINE JOQ-Kisrib5146-15-22 10:57:52 Test Item Value Reference Range Interpretation Comments POC-Sodium (test code = 142 meq/L 135-148 : TE STED AT [facility] 1542) [address] [facility], 770 30: Housing Coordinator/Techni smiley ID = [id number] for RACELIS, SHELBY INE Lab Interpretation (test Normal code = 68341-2) [facility]-Byfvwg3669-21-70 10:57:52 Test Item Value Reference Range Interpretation Comments POC-Sodium (test code = 142 meq/L 135-148 : TE STED AT [facility] 1542) [address] [place] [address], 770 30: Housing Coordinator/Techni smiley ID = [id number] for RACELIS, SHELBY INE Lab Interpretation (test Normal code = 05422-4) [facility]-Kynmhw6185-23-92 10:57:52 Test Item Value Reference Range Interpretation Comments POC-Sodium (test code = 142 meq/L 135-148 : TE STED AT [facility] 1542) [address] [facility], 770 30: Housing Coordinator/Techni smiley ID = [id number] for RACELIS, SHELBY INE Lab Interpretation (test Normal code = 28327-7) [facility]-Txpdlq6018-49-43 10:57:52 Test Item Value Reference Range Interpretation Comments POC-Sodium (test code = 142 meq/L 135-148 : TE STED AT [facility] 1542) [address] [facility], 770 30: Housing Coordinator/Techni smiley ID = [id number] for RACELIS, SHELBY INE Lab Interpretation (test Normal code = 70588-9) [facility]-Owlayz7139-88-24 10:57:52 Test Item Value Reference Range Interpretation Comments POC-Sodium (test code = 142 meq/L 135-148 : TE STED AT [facility] 1542) [address] [facility], 770 30: Housing Coordinator/Techni smiley ID = [id number] for RACELIS, SHELBY INE Lab Interpretation (test Normal code = 42074-2) [facility]-[id number] 10:57:52 Test Item Value Reference Range Interpretation Comments POC-SODIUM (BEAKER) 142 meq/L 135-148 : TESTED AT [facility] 6720 (test code = 1542) [facility], [address]: Housing Coordinator/Techni smiley ID = [id number] for RACE LIS, SAMY POC-Blood gases, [id number] 10:57:51 Test Item Value Reference Range Interpretation [...] tomated message] code = 1838) The system [employer] generated this result transmit markie reference range [...] [facility] code = 1841) [address] [facility], [address]: Housing Coordinator/Techni smiley ID = [id number] for SHELBY GONZALEZ DORENE Lab Interpretation Abnormal (test code = 90328-2) [facility]-Blood gases, jhnhjnsa0466-96-74 10:57:51 Test Item Value Reference Range Interpretation [...] - 45.0 mm Hg. The reference r elizabteh was not used to interpret this result as normal/abnormal . PO2, Arterial-POC (test 22.0 See_Comment LL [Au tomated message] code = 1838) The system [employer] generated this result transmit markie reference range [...] [facility] code = 1841) [address] [place], [address]: Housing Coordinator/Techni smiley ID = [id number] for SHELBY GONZALEZ Lab Interpretation Abnormal (test code = 18768-2) [facility]-Blood gases, zvdxjcbl8669-99-51 10:57:51 Test Item Value Reference Range Interpretation [...] tomated message] code = 1838) The system [employer] generated this result transmit markie reference range [...] [facility] code = 1841) [address] [facility], [address]: Housing Coordinator/Techni smiley ID = [id number] for SHELBY GONZALEZ Lab Interpretation Abnormal (test code = 65924-9) [facility]-Blood gases, qdzuqrby0705-04-41 10:57:51 Test Item Value Reference Range Interpretation [...] tomated message] code = 1838) The system [employer] generated this result transmit markie reference range [...] [facility] code = 1841) [address] [place], [address]: Housing Coordinator/Techni smiley ID = [id number] for CARLOSSHELBY Lab Interpretation Abnormal (test code = 14486-6) [facility]-Blood gases, oqovxtnb5156-97-81 10:57:51 Test Item Value Reference Range Interpretation [...] tomated message] code = 1838) The system [employer] generated this result transmit markie reference range [...] [facility] code = 1841) [address] [facility], [address]: Housing Coordinator/Techni smiley ID = [id number] for SHELBY GONZALEZ DORENE Lab Interpretation Abnormal (test code = 25664-2) [facility], [id number] 10:57:51 Test Item Value Reference Range Interpretation [...] 7.0 meq/L -2.0-3.0 H : TESTED AT [facility] 6720 ARTERIAL-POC [facility], (BEAKER) (test code [address]: = 1841) Housing Coordinator/Techni smiley ID = [id number] for SAMY DAVIS POCT-GLUCOSE [id number] 10:21:20 Test Item Value Reference Range Interpretation Comments POC-GLUCOSE METER 117 mg/dL 70-110 H : TESTED A T [facility] 6720 (BEAKER) (test code = [facility], 1538) [address]: Housing Coordinator/Techni smiley ID = [id number] for MANDA ESPARZA CT brain without IV [id number] 09:31:[address] BRAIN WITHOUT IV [...] within normal limits. No obstructive paranasal sinus disease.[facility] without IV tjzwnlur6116-73-74 09:31:[address] BRAIN WITHOUT IV [...] and leftward subfalcineherniation. Orbits are within normal limits. No obstructive paranasal sinus disease.[facility] CenterPO[facility]UCOSE [id number] 05:45:28 Test Item Value Reference Range Interpretation Comments POC-GLUCOSE METER 116 mg/dL 70-110 H : TESTED A T [facility] 6720 (BEAKER) (test code = [place], 1538) [address]: Housing Coordinator/Techni smiley ID = [id number] for Teresa Rose BASIC METABOLIC [id number] 05:42:31 Test Item Value Reference Range Interpretation [...] not appl icable for dialysis patien ts Housing Coordinator ID - LCDCCXCYAVGGDB7693-04-61 05:40:46 Test Item Value Reference Range Interpretation Comments MAGNESIUM (BEAKER) (test code = 2.9 mg/dL 1.6-2.6 H 627) Housing Coordinator ID - [id number] 05:40:46 Test Item Value Reference Range Interpretation Comments PHOSPHORUS (BEAKER) (test code = 6.5 mg/dL 2.3-4.7 H 604) Housing Coordinator ID - ADMINCBC W/PLT COUNT & AUTO [id number] 05:38:35 Test Item Value Reference Range Interpretation [...] PERCENT (BEAKER) (test code = 2801) POCT-GLUCOSE [id number] 23:35:25 Test Item Value Reference Range Interpretation Comments POC-GLUCOSE METER 135 mg/dL 70-110 H : TESTED A T [facility] 6720 (BEAKER) (test code = [place], [address]) [address]: Housing Coordinator/Techni smiley ID = [id number] for Teresa Rose POCT-GLUCOSE [id number] 17:28:48 Test Item Value Reference Range Interpretation Comments POC-GLUCOSE METER 101 mg/dL 70-110 : TESTED A T [facility] 6720 (BEAKER) (test code = [facility], 1538) [address]: Housing Coordinator/Techni smiley ID = [id number] for CIRA HUMPHREY BLOOD [id number] 17:00:30 Test Item Value Reference Range Interpretation Comments CULTURE (BEAKER) (test No growth in 5 days code = 1095) BLOOD [id number] 17:00:30 Test Item Value Reference Range Interpretation Comments CULTURE (BEAKER) (test No growth in 5 days code = 1095) XR ABDOMEN/KUB 1 VIEW [id number] 14:17:07 [facility] : 1975 Sex: FXR ABDOMEN/KUB 1 VIEW PORTABLETECHNIQUE: Supine radiograph(s) of the abdomen and pelvis.HISTORY: corpak placementCOMPARISON: 12/04/2022IMPRESSION:Lines and tubes: Enteric tube is seen with tip in the stomachElectronically Signed By: Sarah Carrera11/05/2022 14:19 CDTWorkstation Name: [id number] 12:53:33 Test Item Value Reference Range Interpretation Comments POC-GLUCOSE METER 88 mg/dL 70-110 : TESTED A T [facility] 6720 (BEAKER) (test code = [facility], 1538) [address]: Housing Coordinator/Techni smiley ID = [id number] for CIRA ROLAND POCT-GLUCOSE [id number] 06:25:50 Test Item Value Reference Range Interpretation Comments POC-GLUCOSE METER 110 mg/dL 70-110 : TESTED A T [facility] 6720 (BEAKER) (test code = [place], 1538) [address]: Housing Coordinator/Techni smiley ID = [id number] for NADEGE IVEY BASIC METABOLIC [id number] 04:16:53 Test Item Value Reference Range Interpretation [...] not appl icable for dialysis patien ts Housing Coordinator ID - DAMIÁN [id number] 04:16:53 Test Item Value Reference Range Interpretation Comments MAGNESIUM (BEAKER) (test code = 2.8 mg/dL 1.6-2.6 H 627) Housing Coordinator ID - DAMIÁN NFPOEIYPIPR1549-41-18 04:16:53 Test Item Value Reference Range Interpretation Comments PHOSPHORUS (BEAKER) (test code = 5.7 mg/dL 2.3-4.7 H 604) Housing Coordinator ID - DAMIÁN WCBC W/PLT COUNT & AUTO [id number] 03:44:05 Test Item Value Reference Range Interpretation [...] PERCENT (BEAKER) (test code = 2801) POCT-GLUCOSE [id number] 23:25:33 Test Item Value Reference Range Interpretation Comments POC-GLUCOSE METER 114 mg/dL 70-110 H : TESTED A T [facility] 6720 (BEAKER) (test code = [facility], [facility]8) [address]: Housing Coordinator/Techni smiley ID = [id number] for NADEGE IVEY [id number] 18:58:11 Test Item Value Reference Range Interpretation Comments SODIUM (BEAKER) (test code = 381) 142 meq/L 136-145 Housing Coordinator ID - JSPOCT-GLUCOSE [id number] 17:04:52 Test Item Value Reference Range Interpretation Comments POC-GLUCOSE METER 142 mg/dL 70-110 H : TESTED A T [facility] 6720 (BEAKER) (test code = [facility], [facility]) [address]: Housing Coordinator/Techni smiley ID = [id number] for MA RTINEZ, MANDA POCT-GLUCOSE [id number] 12:43:34 Test Item Value Reference Range Interpretation Comments POC-GLUCOSE METER 127 mg/dL 70-110 H : TESTED A T [facility] 6720 (BEAKER) (test code = [facility], [facility]) [address]: Housing Coordinator/Techni smiley ID = [id number] for MA RTINEZ, MANDA [id number] 12:42:31 Test Item Value Reference Range Interpretation Comments SODIUM (BEAKER) (test code = 381) 141 meq/L 136-145 Housing Coordinator ID - JSPOCT-GLUCOSE OAVHO7059-56-16 05:53:11 Test Item Value Reference Range Interpretation Comments POC-GLUCOSE METER 122 mg/dL 70-110 H : TESTED A T [facility] 6720 (BEAKER) (test code = [facility], 1538) [address]: Housing Coordinator/Techni smiley ID = [id number] for NADEGE IVEY [id number] 04:57:58 Test Item Value Reference Range Interpretation Comments PHOSPHORUS (BEAKER) 6.1 mg/dL 2.3-4.7 H Specimen slightly (test code = 604) hemolyzed Housing Coordinator ID - DAMIÁN WBASIC METABOLIC [id number] 04:57:58 Test Item Value Reference Range Interpretation [...] not appl icable for dialysis patien ts Housing Coordinator ID - DAMIÁN RWYWRAPQYG9837-37-19 04:57:57 Test Item Value Reference Range Interpretation Comments MAGNESIUM (BEAKER) 2.7 mg/dL 1.6-2.6 H Specimen slightly (test code = 627) hemolyzed Housing Coordinator ID Gisele STEEL WCBC W/PLT COUNT & AUTO [id number] 04:36:11 Test Item Value Reference Range Interpretation [...] PERCENT (BEAKER) (test code = 2801) POCT-GLUCOSE [id number] 00:26:17 Test Item Value Reference Range Interpretation Comments POC-GLUCOSE METER 117 mg/dL 70-110 H : TESTED A T [facility] 6720 (BEAKER) (test code = [facility] Mona [facility], 1538) [address]: Housing Coordinator/Techni smiley ID = [id number] for NADEGE IVEY [id number] 19:29:04 Test Item Value Reference Range Interpretation Comments SODIUM (BEAKER) (test code = 381) 141 meq/L 136-145 Housing Coordinator ID - ADMINPOCT-GLUCOSE YKEVG2941-74-07 16:58:24 Test Item Value Reference Range Interpretation Comments POC-GLUCOSE METER 142 mg/dL 70-110 H : TESTED A T [facility] 6720 (BEAKER) (test code = [facility], 1538) [address]: Housing Coordinator/Techni smiley ID = [id number] for MANDA ESPARZA XR ABDOMEN/KUB 1 VIEW [id number] 13:01:43 [facility] : 1975 Sex: FAbdomen , one viewHistory:Feeding tube placementComparison:10/30/2022Findings:Tip of the feeding tube is near the pylorus. Nonobstructive bowel gaspattern. Cholecystectomy clips within the right upper quadrant.Electronically Signed By: Dion Vigil MD11/03/2022 13:03 CDTWorkstation Name: [id number] 12:39:24 Test Item Value Reference Range Interpretation Comments SODIUM (BEAKER) (test code = 381) 142 meq/L 136-145 POCT-GLUCOSE [id number] 12:05:03 Test Item Value Reference Range Interpretation Comments POC-GLUCOSE METER 118 mg/dL 70-110 H : TESTED A T [facility] 6720 (BEAKER) (test code = [place], 1538) [address]: Housing Coordinator/Techni smiley ID = [id number] for MANDA ESPARZA [id number] 06:17:11 Test Item Value Reference Range Interpretation Comments PHOSPHORUS (BEAKER) (test code = 4.1 mg/dL 2.3-4.7 604) Housing Coordinator ID - DAMIÁN WBASIC METABOLIC [id number] 06:17:10 Test Item Value Reference Range Interpretation [...] not appl icable for dialysis patien ts Housing Coordinator ID - DAMIÁN JJUPZMHLJQ9890-19-27 06:17:10 Test Item Value Reference Range Interpretation Comments MAGNESIUM (BEAKER) (test code = 2.4 mg/dL 1.6-2.6 627) Housing Coordinator ID - DAMIÁN WPOCT-GLUCOSE [id number] 05:50:21 Test Item Value Reference Range Interpretation Comments POC-GLUCOSE METER 121 mg/dL 70-110 H : TESTED Oscar T [facility] 6720 (BEAKER) (test code = [place], 1538) [address]: Housing Coordinator/Techni smiley ID = [id number] for NADEGE IVEY CBC W/PLT COUNT & AUTO [id number] 05:25:22 Test Item Value Reference Range Interpretation [...] PERCENT (BEAKER) (test code = 2801) POCT-GLUCOSE [id number] 23:36:51 Test Item Value Reference Range Interpretation Comments POC-GLUCOSE METER 116 mg/dL 70-110 H : TESTED A T [facility] 6720 (BEAKER) (test code = [facility], 1538) [address]: Housing Coordinator/Techni smiley ID = [id number] for NADEGE IVEY [id number] 18:30:49 Test Item Value Reference Range Interpretation Comments SODIUM (BEAKER) (test code = 381) 141 meq/L 136-145 Housing Coordinator ID - ADMINPOCT-GLUCOSE [id number] 17:57:14 Test Item Value Reference Range Interpretation Comments POC-GLUCOSE METER 118 mg/dL 70-110 H : TESTED A T [facility] 6720 (AKER) (test code = [facility], 153) [address]: Housing Coordinator/Techni smiley ID = [id number] for An Donna lucas MRSA [id number] 14:39:15 Test Item Value Reference Range Interpretation Comments Result (test code = 6463-4) No MRSA [facility] [id number] 14:39:15 Test Item Value Reference Range Interpretation Comments Result (test code = 6463-4) No [facility] [id number] 14:39:15 Test Item Value Reference Range Interpretation Comments Result (test code = 6463-4) No MRSA isolated [facility] [id number] 14:39:15 Test Item Value Reference Range Interpretation Comments Result (test code = 6463-4) No MRSA isolated [facility] [id number] 14:39:15 Test Item Value Reference Range Interpretation Comments Result (test code = 6463-4) No [facility] [id number] 14:39:15 Test Item Value Reference Range Interpretation Comments CULTURE (BEAKER) (test code No MRSA isolated = 1095) [id number] 13:35:39 Test Item Value Reference Range Interpretation Comments SODIUM (BEAKER) (test code = 381) 139 meq/L 136-145 Housing Coordinator ID - BVPOCT-GLUCOSE [id number] 13:06:41 Test Item Value Reference Range Interpretation Comments POC-GLUCOSE METER 134 mg/dL 70-110 H : TESTED A T [facility] 6720 (BEAKER) (test code = [place], 1538) [address]: Housing Coordinator/Techni smiley ID = [id number] for An Donna lucas CT BRAIN WITHOUT IV [id number] 13:00:59 [facility] : 1975 Sex: FCT [...] Signed By: Alexandra Liang11/02/2022 13:03 CDTWorkstation Name: [id number] 06:29:29 Test Item Value Reference Range Interpretation Comments SODIUM (BEAKER) (test code = 381) 139 meq/L 136-145 BASIC METABOLIC [id number] 06:29:28 Test Item Value Reference Range Interpretation [...] as accur ate as Creatinine María Elena pitmtan in predicting glom erular filtration rate . Estimated GFR is not appl icable for dialysis patien ts Housing Coordinator ID - [id number] 06:29:28 Test Item Value Reference Range Interpretation Comments MAGNESIUM (BEAKER) (test code = 2.2 mg/dL 1.6-2.6 627) Housing Coordinator ID - [id number] 06:29:28 Test Item Value Reference Range Interpretation Comments PHOSPHORUS (BEAKER) (test code = 3.8 mg/dL 2.3-4.7 604) Housing Coordinator ID - MARCOPOCT-GLUCOSE [id number] 06:21:55 Test Item Value Reference Range Interpretation Comments POC-GLUCOSE METER 125 mg/dL 70-110 H : TESTED A T [facility] 6720 (BEAKER) (test code = [place], 1538) [address]: Housing Coordinator/Techni smiley ID = [id number] for NADEGE IVEY CBC W/PLT COUNT & AUTO [id number] 06:08:00 Test Item Value Reference Range Interpretation [...] PERCENT (BEAKER) (test code = 2801) POCT-GLUCOSE [id number] 00:19:06 Test Item Value Reference Range Interpretation Comments POC-GLUCOSE METER 99 mg/dL 70-110 : TESTED A T [facility] 6720 (BEAKER) (test code = AVINASH Dunn [facility], 1538) 63345: Housing Coordinator/Techni smiley ID = [id number] for NADEGE MORALES [id number] 18:45:56 Test Item Value Reference Range Interpretation Comments SODIUM (BEAKER) (test code = 381) 140 meq/L 136-145 Housing Coordinator ID - ADMPOCT-GLUCOSE [id number] 18:39:21 Test Item Value Reference Range Interpretation Comments POC-GLUCOSE METER 121 mg/dL 70-110 H : TESTED A T [facility] 6720 (BEAKER) (test code [facility], = 1538) 71453: Housing Coordinator/Techni smiley ID = [id number] for Kristin vitale Lat[place] 2D Echo W/Doppler(CW/PW/Color)2022-11-01 17:30:35Transthoracic Echocardiography Report (TTE) Demographics Patient Name IVÁN Cabello Date of Study 11/01/2022 Gender Female Visit Number [id number] Race Unknown RoomNumber 7516 Number Date of 1975 Referring Physician Katelyn Chavez Age 47 year(s)Packaging Manager Bernard Lopez Sub Plant Manager No Evangelista, Interpreting Ermias Fink ZACHARIAH PhysicianMDProcedure Type of Study TTE procedure:2DECHO W [...] by Javed's method of disk assessment is nor mal (55-60%) . Grade 2 diastolic dysfunction (moderately increased LA pressure). High (cardiac index>4 L/min/m2) cardiac output state at rest is noted. Left Atrium LA size is severely enlarged (>48 ml/m2) . Right Ventricle Normal RV size and systolic function. Right Atrium RA size is normal. Atrial Septum Normal interatrial septum by available views. Aortic Valve Normal AoV structure. Early systolic closure by M-mode noted. No evidence of aortic stenosis. No evidence of aortic regurgitation.No evidence of intracavitary obstruction. Mitral Valve Mild [...] size moderately dilated. 4.6 cm Pericardium No pe ricardial effusion is visualized. IVC/SVC/PA/PV/Pleural The inferior vena cava size is small . The estimated RA pressure by IVC dynamics 0-5mmHg .Chambers/Structures Left Atrium LA Volume: 96.33 ml LA Area: 28.38 cm^2 LA Vol. Index: 55 ml/m^2 Left Ventricle LVIDd: 4.28 cm LVEDV:60.06 ml LV Septum Diast olic: 1.54 cm LV PW Diastolic: 1.39 cm [...] Peak Velocity: 1.32 m/s Peak Gradient: 7.01 mmHgPal[facility] Center2D Echo W/Doppler(CW/PW/Color)2022-11-01 17:30:35Transthoracic Echocardiography Report (TTE) Demographics Patient Name IVÁN Cabello Date of Study 11/01/2022 Gender Female Visit Number [id number] Race Unknown RoomNumber 7516 Number Date of 1975 Referring Physician Katelyn Chavez Age 47 year(s)Packaging Manager Bernard Lopez Sub Plant Manager No Evangelista, Interpreting Ermias Fink [facility] PhysicianMDProcedure Type of Study TTE [...] by Javed's method of disk assessment is nor mal (55-60%) . Grade 2 diastolic dysfunction (moderately increased LA pressure). High (cardiac index>4 L/min/m2) cardiac output state at rest is noted. Left Atrium LA size is severely enlarged (>48 ml/m2) . Right Ventricle Normal RV size and systolic function. Right Atrium RA size is normal. Atrial Septum Normal interatrial septum by available views. Aortic Valve Normal AoV structure. Early systolic closure by M-mode noted. No evidence of aortic stenosis. No evidence of aortic regurgitation.No evidence of intracavitary obstruction. Mitral Valve Mild mitral annular calcification. Mild MV leaflet thickening. No systolic anterior motion noted. Tricuspid Valve TV structure is normal. No evidence of tricuspid regurgitation. Unable to estimate peak systolic PA pressure; inadequate TR velocitysignal. Pulmonic Valve Normal PV structure and function by limited views and Doppler. A trace of pulmonary regurgitation. Aorta Proximal ascending aorta size moderately dilated. 4.6 cm Pericardium No pericardial effusion is visualized. IVC/SVC/PA/PV/Pleural The inferior vena cava size is small . The e stimated RA pressure by IVC dynamics 0-5mmHg .Chambers/Structures Left Atrium LA Volume: 96.33 ml LAArea: 28.38 cm^2 LA Vol. Index: 55 ml/m^2 [...] cm TAPSE: 1.72 cmAorta Ao Root S ofVal.: 3.23 cm Ascending Aorta: 4.58 cmDoppler/Quantitative Measurements Mitral Valve MV Peak E-Wave:0.63 m/s MV Peak A-Wave: 0.97 m/s E/A Ratio: 0.65 Peak Gradient: 1.59 mmHg Deceleration Time: 360.5msec MV Gris. Peak: Tissue Doppler E' Septal Velocity: 0.03 m/s E/E': 18.39 E' Lateral Velocity: 0.04m/s Aortic Valve Peak Velocity: 1.97 m/s Mean Velocity: 1.2 m/s Peak Gradient: 15.45 mmHg Mean Gradient: 7.44 mmHg AV Area (continuity): 3.69 cm^2 AV VTI: 25.64 cm AV DVI: 1.2 LVOT Peak Velocity: 1.87 m/s Peak Gradient: 13.99 mmHg Mean Velocity: 1.19 m/s Mean Gradient: 7.17 mmHg LVOT Diameter: 1.98 cmLVOT VTI: 30.71 cm LVOT Area: 3.08 cm^2 LVOT SV:94.51 ml LVOT CO: 7.66 l/min LVOT CI: 4.35 l/min/m^2Pulmonic Valve Peak Velocity: 1.32 m/s Peak Gradient: 7.01 mmHgGlendora Community HospitalODIUM2023-08-17 14:24:36 Test Item Value Reference Range Interpretation Comments SODIUM (BEAKER) (test code = 381) 140 meq/L 136-145 Housing Coordinator ID - [id number] 10:06:02 Test Item Value Reference Range Interpretation Comments POTASSIUM (BEAKER) (test code = 3.8 meq/L 3.5-5.1 379) Housing Coordinator ID - [id number] 10:06:01 Test Item Value Reference Range Interpretation Comments MAGNESIUM (BEAKER) (test code = 2.3 mg/dL 1.6-2.6 627) Housing Coordinator ID - ADMVANCOMYCIN LEVEL, [id number] 09:59:39 Test Item Value Reference Range Interpretation Comments VANCOMYCIN TROUGH (BEAKER) (test 8.4 ug/mL 10.0-20.0 L code = 522) Housing Coordinator ID - [id number] 04:21:26 Test Item Value Reference Range Interpretation Comments MAGNESIUM (BEAKER) (test code = 2.0 mg/dL 1.6-2.6 627) Housing Coordinator ID - [id number] 04:21:26 Test Item Value Reference Range Interpretation Comments PHOSPHORUS (BEAKER) (test code = 3.2 mg/dL 2.3-4.7 604) Housing Coordinator ID - ADMINBASIC METABOLIC [id number] 04:21:25 Test Item Value Reference Range Interpretation [...] not appl icable for dialysis patien ts Housing Coordinator ID - ADMINCBC W/PLT COUNT & AUTO [id number] 03:36:42 Test Item Value Reference Range Interpretation [...] 0.00-1.00 PERCENT (BEAKER) (test code = 2801) [id number] 00:11:29 Test Item Value Reference Range Interpretation Comments SODIUM (BEAKER) (test code = 381) 139 meq/L 136-145 Housing Coordinator ID - [id number] 18:25:44 Test Item Value Reference Range Interpretation Comments SODIUM (BEAKER) (test code = 381) 139 meq/L 136-145 Housing Coordinator ID - esauSARS-CoV2/Influenza/RSV RT-PCR (Symptomatic ONLY)2022-10-31 14:03:24 Test Item Value Reference Interpretation Comments Range SARS-COV2/RT-PCR Negative Negative The SARS-Co V-2 (test code = target nucleic 85114-0) acids are not detected in thi s [...] om SARS-CoV-2 in a nasopharyngeal swab specimen [facility] from individual s suspected of COVID-19 by the healthcare provider. Influenza A RT-PCR Negative Negative The Flu A target (test code = [place] [address]-0) not detected in this specimen. Influenza B RT-PCR Negative Negative The Flu B target (test code = [place] 53837-9) not detected in this specimen. RSV by RT-PCR (test Negative Negative The RSV target code = 54439-2) nucleic acid s are not detected in [...] the Act. Fact Sheet for Healthcare Providers:https://w Spr[employer]/Docu ments/Xpert%20Xpres s%20SARS%20CoV-2/Fa ct%20Sheets/302-390 2%99USPO-FAT-4%20HE ALTHCARE%20PROVIDER S%20FACT%20SHEET.pd f Fact Sheet for Healthcare Patients:https://linda Curex.Co/Docum ents/Xpert%20Xpress %20SARS%20Cov-2/Fac t%20Sheets/302-3801 %27FKCI-WJT-9%20PAT IENT%20FACT%20SHEET .pdf Lab Interpretation Normal (test code = 72740-9) [facility]V RT-PCR (Symptomatic ONLY) 2022-10-31 14:03:24 Test Item Value Reference Interpretation Comments Range SARS-COV2/RT-PCR Negative Negative The SARS-Co V-2 (test code = target nucleic 38400-0) acids are not detected in thi s [...] rapid, real-marichuy e RT-PCR test intended for th e qualitative detection of nucleic acid fr om SARS-CoV-2 in a nasopharyngeal swab specimen collec markie from individual s suspected of COVID-19 by the ir healthcare provider. Influenza A RT-PCR Negative Negative The Flu A target (test code = [place] 95553-5) not detected in this specimen. Influenza B RT-PCR Negative Negative The Flu B target (test code = [place] 11978-1) not detected in this specimen. RSV by RT-PCR (test Negative Negative The RSV target code = 27089-2) nucleic acid s are not detected in [...] SARS-CoV-2/Flu/RSV by their healthcare provider. Results from [facility] Xpert Xpress SARS-CoV-2/Flu/RSV test should be [...] the Act. Fact Sheet for Healthcare Providers:https://w [employer]/Docu ments/Xpert%20Xpres s%20SARS%20CoV-2/Fa ct%20Sheets/302-390 2%62XLNE-VSV-6%20HE ALTHCARE%20PROVIDER S%20FACT%20SHEET.pd f Fact Sheet for Healthcare Patients:https://linda [employer].Co/Docum ents/Xpert%20Xpress %20SARS%20Cov-2/Fac t%20Sheets/302-3801 %55ISYH-XBX-0%20PAT IENT%20FACT%20SHEET .pdf Lab Interpretation Normal (test code = 55261-6) [facility]V RT-PCR (Symptomatic ONLY) 2022-10-31 14:03:24 Test Item Value Reference Interpretation Comments Range SARS-COV2/RT-PCR Negative Negative The SARS-Co V-2 (test code = target nucleic 98144-0) acids are not detected in thi s [...] rapid, real-marichuy e RT-PCR test intended for th e qualitative detection of nucleic acid fr om SARS-CoV-2 in a nasopharyngeal swab specimen collec markie from individual s suspected of COVID-19 by the healthcare provider. Influenza A RT-PCR Negative Negative The Flu A target (test code = [place] 10185-8) not detected in this specimen. Influenza B RT-PCR Negative Negative The Flu B target (test code = nucleic acids a re 55536-2) not detected in this specimen. RSV by RT-PCR (test Negative Negative The RSV target code = 83881-7) nucleic acid s are not detected in [...] SARS-CoV-2/Flu/RSV by their healthcare provider. Results from [facility] Xpert Xpress SARS-CoV-2/Flu/RSV test should be [...] the Act. Fact Sheet for Healthcare Providers:https://w [employer]/Docu ments/Xpert%20Xpres s%20SARS%20CoV-2/Fa ct%20Sheets/302-390 2%44BIOS-PDP-8%20HE ALTHCARE%20PROVIDER S%20FACT%20SHEET.pd f Fact Sheet for Healthcare Patients:https://ww Curex.Co/Docum ents/Xpert%20Xpress %20SARS%20Cov-2/Fac t%20Sheets/302-3801 %26JSWN-RTG-8%20PAT IENT%20FACT%20SHEET .pdf Lab Interpretation Normal (test code = 04077-0) [facility]V RT-PCR (Symptomatic ONLY) 2022-10-31 14:03:24 Test Item Value Reference Interpretation Comments Range SARS-COV2/RT-PCR Negative Negative The SARS-Co V-2 (test code = target nucleic 22984-9) acids are not detected in thi s [...] (test code = [place] 72843-6) not detected in this specimen. Influenza B RT-PCR Negative Negative The Flu B target (test code = [place] 77374-2) not detected in this specimen. RSV by RT-PCR (test Negative Negative The RSV target code = 85141-7) nucleic acid s are not detected in [...] the Act. Fact Sheet for Healthcare Providers:https://w [employer]/Docu ments/Xpert%20Xpres s%20SARS%20CoV-2/Fa ct%20Sheets/302-390 2%13IRBS-SXD-1%20HE ALTHCARE%20PROVIDER S%20FACT%20SHEET.pd f Fact Sheet for Healthcare Patients:https://linda C[employer]x.Co/Docum ents/Xpert%20Xpress %20SARS%20Cov-2/Fac t%20Sheets/302-3801 %03YEUD-QSJ-0%20PAT IENT%20FACT%20SHEET .pdf Lab Interpretation Normal (test code = 56030-8) [facility]V RT-PCR (Symptomatic ONLY) 2022-10-31 14:03:24 Test Item Value Reference Interpretation Comments Range SARS-COV2/RT-PCR Negative Negative The SARS-Co V-2 (test code = target nucleic 73416-4) acids are not detected in thi s [...] (test code = [place] 69[address]-5) not detected in this specimen. Influenza B RT-PCR Negative Negative The Flu B target (test code = [place] re 45573-2) not detected in this specimen. RSV by RT-PCR (test Negative Negative The RSV target code = 66982-5) nucleic acid s are not detected in [...] SARS-CoV-2/Flu/RSV by their healthcare provider. Results from [facility] Xpert Xpress SARS-CoV-2/Flu/RSV test should be [...] the Act. Fact Sheet for Healthcare Providers:https://w [employer]/Docu ments/Xpert%20Xpres s%20SARS%20CoV-2/Fa ct%20Sheets/302-390 2%85LOLD-WAV-6%20HE ALTHCARE%20PROVIDER S%20FACT%20SHEET.pd f Fact Sheet for Healthcare Patients:https://Yuenimei/Docum ents/Xpert%20Xpress %20SARS%20Cov-2/Fac t%20Sheets/302-3801 %93UZEC-IOM-1%20PAT IENT%20FACT%20SHEET .pdf Lab Interpretation Normal (test code = 95799-4) [facility]/INFLUENZA/RSV [id number] 14:03:24 Test Item Value Reference Range Interpretation Comments SARS-COV2/RT-PCR Negative Negative The SARS-Co V-2 target (test code = nucleic acids a re not 5754150) detected in thi s specimen. Negat yesika [...] individuals amanda [facility]ect[facility]. INFLUENZA A RT-PCR Negative Negative The [...] of the Act.Fact Sheet for Healthcare Providers:https ://www.[employer]Med/Documents/Xpert%20Xpress%20SARS%20CoV-2/Fact%20Sheets/302-390 2%07VYIH-GWJ-9%20HEALTHCARE%20PROVIDERS%20FACT%20SHEET.pdfFact Sheet for Healthcare Patients:https://www.[employer]Med/Docum ents/Xpert%20Xpress%20SARS%20Cov-2/Fact%20Sheets/302-3801%60ZARI-RYG-9%20PATIENT %20FACT%20SHEET.qenXZXPPT8835-30-46 12:52:25 Test Item Value Reference Range Interpretation Comments SODIUM (BEAKER) (test code = 381) 135 meq/L 136-145 L Housing Coordinator ID - gfhrJNESCOENX7141-28-54 12:52:24 Test Item Value Reference Range Interpretation Comments MAGNESIUM (BEAKER) (test code = 2.4 mg/dL 1.6-2.6 627) Housing Coordinator ID - esauPOCT-GLUCOSE [id number] 12:00:51 Test Item Value Reference Range Interpretation Comments POC-GLUCOSE METER 130 mg/dL 70-110 H : [facility] (test code [facility], = 1538) 69610: Housing Coordinator/Techni smiley ID = [id number] for Latonia Connolly B-TYPE NATRIURETIC FACTOR (BNP)2022-10-31 10:43:21 Test Item Value Reference Range Interpretation Comments B-TYPE NATRIURETIC PEPTIDE (BEAKER) 568 pg/mL 0-100 H (test code = 700) Housing Coordinator ID - esauVenous doppler legs uymawoivo3953-66-01 08:29:42PV LAB - Lower Extremities DVT Study Demographics Patient Name IVÁN INIGUEZ Date of Study 10/31/2022 L Age 47 Visit Number [id number] Gender Female Accession Number [id number] Date of 1975 Referring Kathy Zepeda MD Room Number 2813 Physician Packaging Manager Wayne Zavala T Interpreting Bia Herbert MD Physician FellowProcedureType of [...] venous obstruction in the great saphenous vein.Left Im pression1. There is no deep venous obstruction in [...] in cm/s ; Diameters are [facility] in [facility] legs [id number] 08:29:42PV LAB - Lower Extremities DVT Study Demographics Patient Name IVÁN INIGUEZ Date of Study 10/31/2022 Irineo Age 47 Visit Number [id number] Gender Female Accession Number [id number] Date of 1975 Referring Kathy Zepeda MD Room Number 7516 Physician Packaging Manager Wayne Zavala [facility] Interpreting Bia Herbert MD Physician FellowProcedureType of [...] in cm/s ; Diameters are measured in [facility] CenterVenous doppler arms irdjycrdr0296-06-59 08:29:21PV LAB - Upper Extremities Veins Demographics Patient Name IVÁN INIGUEZ Date of Study 10/31/2022L Age 47 Visit Number [id number] Gender Female Accession Number [id number] Date of Birth1975 Referring Kathy Zepeda MD Room Number 1494 Physician Packaging Manager Wayne Zavala [facility] Interpreting Bia Herbert MD Physician FellowProcedureType of [...] in cm/s ; Diameters are measured in [facility] CenterVenous doppler arms [id number] 08:29:21PV LAB - Upper Extremities Veins Demographics Patient Name IVÁN INIGUEZ Date of Study 10/31/2022L Age 47 Visit Number [id number] Gender Female Accession Number [id number] Date of Birth1975 Referring Kathy Zepeda MD Room Number 7516 Physician Packaging Manager Wayne Zavala [facility] Interpreting Bia Herbert MD Physician FellowProcedureType of Study: Veins: Upper Extremities Veins, VENOUS DOPPLER ARMS, BILATERAL.Indications for Study:Evaluate for DVT.Patient Status:Routine.Study Location:Portable.Technical Quality:Adequate visualization. - Results were reported to:Qasim Osuna, VIKTORIA @ 3:42 am on 10/31/22.Risk FactorsHistory of Disease+ +----+--------+!Diagnosis !Date!Comments!+ +----+--------+!History/Risk Factors: [...] in cm/s ; Diameters are measured in [facility] [id number] 05:07:29 Test Item Value Reference Range Interpretation Comments MAGNESIUM (BEAKER) (test code = 1.9 mg/dL 1.6-2.6 627) Housing Coordinator ID - [id number] 05:07:29 Test Item Value Reference Range Interpretation Comments PHOSPHORUS (BEAKER) (test code = 3.7 mg/dL 2.3-4.7 604) Housing Coordinator ID - ADMINBASIC METABOLIC [id number] 05:07:28 Test Item Value Reference Range Interpretation [...] not appl icable for dialysis patien ts Housing Coordinator ID - ADMINCBC W/PLT COUNT & AUTO [id number] 04:47:13 Test Item Value Reference Range Interpretation [...] 0.00-1.00 PERCENT (BEAKER) (test code = 2801) [id number] 23:06:40 Test Item Value Reference Range Interpretation Comments SODIUM (BEAKER) (test code = 381) 133 meq/L 136-145 L Housing Coordinator ID - ADMINHIGH SENSITIVITY TROPONIN [id number] 22:59:43 Test Item Value Reference Range Interpretation Comments HIGH SENSITIVITY 92 pg/ml See_Comment H [Automated message] TROPONIN I (test code = The system which [id number]) generated this result transmitted ref erence range: <=17. Th e reference range was not used to int erpret this result as normal/abnormal . Housing Coordinator ID - ADMINThe BANKMAN STAT High Sensitivity Troponin-I results should be used in conjunction with other diagnostic information such as ECG, clinical observations and information, and patientsymptoms to aid in the diagnosis of ND. XR ABDOMEN/KUB 1 VIEW [id number] 18:54:45 [facility] CENTERName: GEETHA MINOR : 1975 Sex: FTECHNIQUE: XR ABDOMEN/KUB 1 VIEW PORTABLEINDICATION: corpak placement.COMPARISON: 10/29/2022FINDINGS:Feeding tube tip projecting over the body of the stomach. No specificevidence for bowel obstruction. Cholecystectomy clips are noted. Supineradiographs are insensitive for detection of free intraperitoneal ai r.IMPRESSION:Feeding tube tip projects over the body of the stomach.Electronically Signed By: Mo Soares10/30/2022 18:56 CDTWorkstation Name: [id number] SENSITIVITY TROPONIN [id number] 17:30:01 Test Item Value Reference Range Interpretation Comments HIGH SENSITIVITY 123 pg/ml See_Comment H [Automated message] TROPONIN I (test code The sy stem which = [id number]) generated this result transmitted ref erence range: <=17. Th e reference range was not used to int erpret this result as normal/abnormal . Housing Coordinator ID - BSThe BANKMAN STAT High Sensitivity Troponin-I results should be used in conjunctionwith other diagnostic information such as ECG, clinical observations and information, and patient symptoms to aid in the diagnosis of ND.Lactic Acid, [id number] 17:25:59 Test Item Value Reference Range Interpretation Comments Lactate, Art (test code = 1.0 mmol/L 0.5-2.0 2874) SUE (test code = SUE) Housing Coordinator ID - ADMIN Lab Interpretation (test Normal code = 67562-3) [facility], [id number] 17:25:59 Test Item Value Reference Range Interpretation Comments Lactate, Art (test code = 1.0 mmol/L 0.5-2.0 2874) SUE (test code = SUE) Housing Coordinator ID - ADMIN Lab Interpretation (test Normal code = 96733-5) [facility] CenterL[facility], [id number] 17:25:59 Test Item Value Reference Range Interpretation Comments Lactate, Art (test code = 1.0 mmol/L 0.5-2.0 2874) SUE (test code = SUE) Housing Coordinator ID - ADMIN Lab Interpretation (test Normal code = 02055-8) [facility] CenterL[facility] Acid, [id number] 17:25:59 Test Item Value Reference Range Interpretation Comments Lactate, Art (test code = 1.0 mmol/L 0.5-2.0 2874) SUE (test code = SUE) Housing Coordinator ID - ADMIN Lab Interpretation (test Normal code = 90603-5) [facility] CenterL[facility], [id number] 17:25:59 Test Item Value Reference Range Interpretation Comments Lactate, Art (test code = 1.0 mmol/L 0.5-2.0 2874) SUE (test code = SUE) Housing Coordinator ID - ADMIN Lab Interpretation (test Normal code = 15374-5) [facility] CenterLACTIC ACID, [id number] 17:25:59 Test Item Value Reference Range Interpretation Comments LACTATE BLOOD ARTERIAL (2) 1.0 mmol/L 0.5-2.0 (BEAKER) (test code = 2874) Housing Coordinator ID - [id number] 17:21:36 Test Item Value Reference Range Interpretation Comments SODIUM (BEAKER) (test code = 381) 136 meq/L 136-145 Housing Coordinator ID - ADMINBLOOD GAS, [id number] 14:46:08 Test Item Value Reference Range Interpretation [...] FIO2 (BEAKER) (test code = 1819) 100.0 [id number] 12:47:53 Test Item Value Reference Range Interpretation Comments SODIUM (BEAKER) (test code = 381) 137 meq/L 136-145 Housing Coordinator ID - JSLACTIC ACID, [id number] 12:47:37 Test Item Value Reference Range Interpretation Comments LACTATE BLOOD 2.3 mmol/L 0.5-2.0 H Specimen sligh tly ARTERIAL (2) (BEAKER) hemoly zed (test code = 2874) Housing Coordinator ID - JSBLOOD GAS, [id number] 12:23:19 Test Item Value Reference Range Interpretation [...] FIO2 (BEAKER) (test code = 1819) 100.0 [id number] 11:15:25 Test Item Value Reference Range Interpretation Comments PROCALCITONIN (BEAKER) (test code 0.05 ng/mL <0.05 H = 3036) SEPSIS RISK (ng/mL)Low: 0.05-0.50Intermediate: 0.51-2.00High: >=2.01HIGH SENSITIVITY TROPONIN [id number] 11:10:59 Test Item Value Reference Range Interpretation Comments HIGH SENSITIVITY 139 pg/ml See_Comment H [Automated message] TROPONIN I (test code The sy stem which = 7471683) generated this result transmitted ref erence range: <=17. Th e reference range was not used to int erpret this result as normal/abnormal . Housing Coordinator ID - JSThe BANKMAN STAT High Sensitivity Troponin-I results should be used in conjunctionwith other diagnostic information such as ECG, clinical observations and information, and patient symptoms to aid in the diagnosis of ND.XR CHEST 1 VIEW PORTABLE / [id number] 10:47:01 [facility] 1975 Sex: FCLINICAL HISTORY: desaturationTECHNIQUE: 1 view of the chest.COMPARISON: 10/29/2022IMPRESSION:ETT no longer seen. New feeding tube below the diaphragm. Right centralline remains in the right atrium. There are mildly increased bilaterallower lung airspace opacities with blunting of both costophrenic angles.The cardiomediastinal silhouette is magnified by technique.Electronically Signed By: Yeyo Mills10/30/2022 10:49 CDTWorkstation Name: [id number] BRAIN WITHOUT IV [id number] 09:21:03 [facility] CENTERName: GEETHA MINOR Irineo : 1975 Sex: FCT [...] Signed By: Luís Mclain10/30/2022 09:23 CDTWorkstation Name: [id number] 04:21:01 Test Item Value Reference Range Interpretation Comments PHOSPHORUS (BEAKER) (test code = 3.2 mg/dL 2.3-4.7 604) Housing Coordinator ID - EMBASIC METABOLIC [id number] 04:21:00 Test Item Value Reference Range Interpretation [...] not appl icable for dialysis patien ts Housing Coordinator ID - [id number] 04:21:00 Test Item Value Reference Range Interpretation Comments MAGNESIUM (BEAKER) (test code = 1.7 mg/dL 1.6-2.6 627) Housing Coordinator ID - EMCBC W/PLT COUNT & AUTO [id number] 03:30:03 Test Item Value Reference Range Interpretation [...] 0.00-1.00 PERCENT (BEAKER) (test code = 2801) [id number] 00:34:48 Test Item Value Reference Range Interpretation Comments SODIUM (BEAKER) (test code = 381) 137 meq/L 136-145 Housing Coordinator ID - ADMINXR ABDOMEN/KUB 1 VIEW [id number] 18:55:43 [facility] : 1975 Sex: [...] Signed By: Mo Soares10/29/2022 18:57 CDTWorkstation Name: [id number] 2022-10-29 18:31:20 Test Item Value Reference Range Interpretation Comments SODIUM (BEAKER) (test code = 381) 138 meq/L 136-145 Housing Coordinator ID - [facility]ine, random [id number] 15:21:04 Test Item Value Reference Range Interpretation Comments Creatinine, Ur 24.5 mg/dL (test code = 2161-8) SUE (test code = Reference Range: No SUE) NormalsOperator ID - ADMIN [facility], random [id number] 15:21:04 Test Item Value Reference Range Interpretation Comments Creatinine, Ur 24.5 mg/dL (test code = 2161-8) SUE (test code = Reference Range: No SUE) NormalsOperator ID - ADMIN [facility] CenterCreatinine, random [id number] 15:21:04 Test Item Value Reference Range Interpretation Comments Creatinine, Ur 24.5 mg/dL (test code = 2161-8) SUE (test code = Reference Range: No SUE) NormalsOperator ID - ADMIN [facility] CenterCreatinine, random [id number] 15:21:04 Test Item Value Reference Range Interpretation Comments Creatinine, Ur 24.5 mg/dL (test code = 2161-8) SUE (test code = Reference Range: No SUE) NormalsOperator ID - ADMIN [facility] CenterCreatinine, random [id number] 15:21:04 Test Item Value Reference Range Interpretation Comments Creatinine, Ur 24.5 mg/dL (test code = 2161-8) SUE (test code = Reference Range: No SUE) NormalsOperator ID - ADMIN [facility] CenterCREATININE, RANDOM [id number] 15:21:04 Test Item Value Reference Range Interpretation Comments CREATININE URINE (BEAKER) (test 24.5 mg/dL code = 375) Reference Range: No NormalsOperator ID - ADMINRapid drug screen, [id number] 14:06:15 Test Item Value Reference Range Interpretation Comments Barbiturate Screen Negative Negative (test code = 92803-6) Benzodiazepine Screen Negative Negative (test code = 34661-6) Cocaine (Metab.) Negative Negative Screen (test code = 3397-7) Methadone Screen (test Negative Negative code = 00302-6) Opiate Screen (test Negative Negative code = 32887-8) Cannabinoid Screen Negative Negative (test code = 50310-0) Amph/Methamph Screen Positive Negative A (test code = 57689-4) Phencyclidine Screen Negative Negative (test code = 21114-8) pH, UA (test code = 6.0 5.0-8.0 5803-2) SUE (test code = SUE) DRUG CUTOFF CONC.Cocaine 300 ng/mL Cannabinoid 50 ng/mLBenzodiazepine 200 ng/mLBarbiturate 200 ng/mLPhencyclidine 25 ng/mLOpiate 300 ng/mLMethadone 300 ng/mLAmphetamine/ 1000 ng/mL Methamphetamine This assay provides an unconfirmed qualitative test result for the clinical management of patients in emergency situations. Chain of custody not maintained. Some cvbf-kzh-fkthxds medications, as well as adulterants, may cause inaccurate results. Clinical correlation should be applied. A more comprehensive drug screen or confirmation of a detected drug may be performed upon request.Housing Coordinator ID - JSOperator ID - [auto] Lab Interpretation Abnormal (test code = 99043-5) [facility] CenterR[facility] screen, [id number] 14:06:15 Test Item Value Reference Range Interpretation Comments Barbiturate Screen Negative Negative (test code = 40479-4) Benzodiazepine Screen Negative Negative (test code = 47209-0) Cocaine (Metab.) Negative Negative Screen (test code = 3397-7) Methadone Screen (test Negative Negative code = 28681-6) Opiate Screen (test Negative Negative code = 73637-2) Cannabinoid Screen Negative Negative (test code = 96225-7) Amph/Methamph Screen Positive Negative A (test code = 59086-5) Phencyclidine Screen Negative Negative (test code = 92107-6) pH, UA (test code = 6.0 5.0-8.0 5803-2) SUE (test code = SUE) DRUG CUTOFF CONC.Cocaine 300 ng/mL Cannabinoid 50 ng/mLBenzodiazepine 200 ng/mLBarbiturate 200 ng/mLPhencyclidine 25 ng/mLOpiate 300 ng/mLMethadone 300 ng/mLAmphetamine/ 1000 ng/mL Methamphetamine This assay provides an unconfirmed qualitative test result for the clinical management of patients in emergency situations. Chain of custody not maintained. Some tlxr-aem-gyxrzie medications, as well as adulterants, may cause inaccurate results. Clinical correlation should be applied. A more comprehensive drug screen or confirmation of a detected drug may be performed upon request.Housing Coordinator ID - JSOperator ID - [auto] Lab Interpretation Abnormal (test code = 80206-2) [facility] CenterR[facility] screen, [id number] 14:06:15 Test Item Value Reference Range Interpretation Comments Barbiturate Screen Negative Negative (test code = 10051-4) Benzodiazepine Screen Negative Negative (test code = 46148-7) Cocaine (Metab.) Negative Negative Screen (test code = 3397-7) Methadone Screen (test Negative Negative code = 18734-5) Opiate Screen (test Negative Negative code = 69673-4) Cannabinoid Screen Negative Negative (test code = 93560-5) Amph/Methamph Screen Positive Negative A (test code = 12367-5) Phencyclidine Screen Negative Negative (test code = 37622-0) pH, UA (test code = 6.0 5.0-8.0 5803-2) SUE (test code = SUE) DRUG CUTOFF CONC.Cocaine 300 ng/mL Cannabinoid 50 ng/mLBenzodiazepine 200 ng/mLBarbiturate 200 ng/mLPhencyclidine 25 ng/mLOpiate 300 ng/mLMethadone 300 ng/mLAmphetamine/ 1000 ng/mL Methamphetamine This assay provides an unconfirmed qualitative test result for the clinical management of patients in emergency situations. Chain of custody not maintained. Some mnfv-blp-mluvhcp medications, as well as adulterants, may cause inaccurate results. Clinical correlation should be applied. A more comprehensive drug screen or confirmation of a detected drug may be performed upon request.Housing Coordinator ID - JSOperator ID - [auto] Lab Interpretation Abnormal (test code = 69153-8) [facility] CenterRapi drug screen, [id number] 14:06:15 Test Item Value Reference Range Interpretation Comments Barbiturate Screen Negative Negative (test code = 73972-5) Benzodiazepine Screen Negative Negative (test code = 58533-0) Cocaine (Metab.) Negative Negative Screen (test code = 3397-7) Methadone Screen (test Negative Negative code = 01097-3) Opiate Screen (test Negative Negative code = 37717-2) Cannabinoid Screen Negative Negative (test code = 77509-4) Amph/Methamph Screen Positive Negative A (test code = 62691-9) Phencyclidine Screen Negative Negative (test code = 10014-7) pH, UA (test code = 6.0 5.0-8.0 5803-2) SUE (test code = SUE) DRUG CUTOFF CONC.Cocaine 300 ng/mL Cannabinoid 50 ng/mLBenzodiazepine 200 ng/mLBarbiturate 200 ng/mLPhencyclidine 25 ng/mLOpiate 300 ng/mLMethadone 300 ng/mLAmphetamine/ 1000 ng/mL Methamphetamine This assay provides an unconfirmed qualitative test result for the clinical management of patients in emergency situations. Chain of custody not maintained. Some wtms-axc-tkvolxe medications, as well as adulterants, may cause inaccurate results. Clinical correlation should be applied. A more comprehensive drug screen or confirmation of a detected drug may be performed upon request.Housing Coordinator ID - JSOperator ID - [auto] Lab Interpretation Abnormal (test code = 47918-3) [facility], [id number] 14:06:15 Test Item Value Reference Range Interpretation Comments Barbiturate Screen Negative Negative (test code = 49208-9) Benzodiazepine Screen Negative Negative (test code = 52626-8) Cocaine (Metab.) Negative Negative Screen (test code = 3397-7) Methadone Screen (test Negative Negative code = 75231-9) Opiate Screen (test Negative Negative code = 44276-2) Cannabinoid Screen Negative Negative (test code = 56485-6) Amph/Methamph Screen Positive Negative A (test code = 49212-2) Phencyclidine Screen Negative Negative (test code = 36546-4) pH, UA (test code = 6.0 5.0-8.0 5803-2) SUE (test code = SUE) DRUG CUTOFF CONC.Cocaine 300 ng/mL Cannabinoid 50 ng/mLBenzodiazepine 200 ng/mLBarbiturate 200 ng/mLPhencyclidine 25 ng/mLOpiate 300 ng/mLMethadone 300 ng/mLAmphetamine/ 1000 ng/mL Methamphetamine This assay provides an unconfirmed qualitative test result for the clinical management of patients in emergency situations. Chain of custody not maintained. Some wcum-ebu-evxcwmi medications, as well as adulterants, may cause inaccurate results. Clinical correlation should be applied. A more comprehensive drug screen or confirmation of a detected drug may be performed upon request.Housing Coordinator ID - JSOperator ID - [auto] Lab Interpretation Abnormal (test code = 23306-7) [facility] Center[facility] SCREEN, [id number] 14:06:15 Test Item Value Reference Range Interpretation [...] situations. Chain of custody not maintained. Some wxiq-mkr-uvsgvbs medications, as well as adulterants, may cause inaccurate results. Clinical correlation should be applied. A more comprehensivedrug screen or confirmation of a detected drug may be performed upon request.Housing Coordinator ID - JSOperator ID - [auto] HEMOGLOBIN [id number] 13:23:17 Test Item Value Reference Range Interpretation Comments HEMOGLOBIN A1C 4.5 % See_Comment [Automated m essage] ELECTROPHORESIS (WESLEY) The system which (test code = 3811) generated this result transmitted ref erence range: <=5.6%. The reference range was not used to int erpret this result as normal/abnormal . "The A1c is measured using a NGSP-certified method. HbA1c value equal to or greater than 6.5% as thediagnosis cutoff for diabetes. An HbA1c value of 5.7- 6.4% indicates increased risk for diabetes (prediabetes)."Housing Coordinator ID - ADMOperator ID - ADMCTA [id number] 13:16:45CT BRAIN WITHOUT IV CONTRAST, CTA CAROTID, CTA BRAINBRAIN CT WITHOUT CONTRAST INDICATION: Unlisted Reason for Exam, intraparenchymal hematoma COMPARISON: None TECHNIQUE:Rapid acquisition spiral images were obtained between the aortic archand the cranial vertex during intravenous contrast infusion toreconstruct axial images and angiographic 3D maximum intensityprojections (MIP). 3-D volumetric reformatted images were created at [employer] workstation. Precontrast images of the brain were [...] opacities, which mayrepresent atelectasis, pneumonia or pulmonary edema.[facility] CenterCTA [id number] 13:16:45CT BRAIN WITHOUT IV CONTRAST, CTA CAROTID, CTA BRAINBRAIN CT WITHOUT CONTRAST INDICATION: Unlisted Reason for Exam, intraparenchymal hematoma COMPARISON: None TECHNIQUE:Rapid acquisition spiral images were obtained between the aortic archand the cranial vertex during intravenous contrast infusion toreconstruct axial images and angiographic 3D maximum intensityprojections (MIP). 3-D volumetric reformatted images were created at [employer] workstation. Precontrast images of the brain were [...] opacities, which mayrepresent atelectasis, pneumonia or pulmonary edema.[facility] CenterCTA [id number] 13:16:45CT BRAIN WITHOUT IV CONTRAST, CTA CAROTID, CTA BRAINBRAIN CT WITHOUT CONTRAST INDICATION: Unlisted Reason for Exam, intraparenchymal hematoma COMPARISON: None TECHNIQUE:Rapid acquisition spiral images were obtained between the aortic archand the cranial vertex during intravenous contrast infusion toreconstruct axial images and angiographic 3D maximum intensityprojections (MIP). 3-D volumetric reformatted images were created at [employer] workstation. Precontrast images of the brain were alsoobtained. Stenosis evaluation reported in compliance with NASCET criteria. DOSE REDUCTION: Dose modulation, iterative reconstruction, and/orweight-based adjustment of the mA/kV was utilized to reduce theradiation dose to as low as reasonably achievable. FINDINGS:CT BRAIN:Intraparenchymal hematoma centered in t he right subinsular regionmeasuring 5.4 x 5.8 x 2.7 cm. Small adjacent hemorrhages are seen in theright central white matter and basal ganglia. Midline structures are normally developed. Diffuse senescent parenchymal volume loss.No hydrocephalus. Effacement of the right lateral ventricle.Small volume i ntraventricular hemorrhageAtherosclerotic calcification of the intracranial internal carotid [...] opacities, which mayrepresent atelectasis, pneumonia or pulmonary edema.[facility] CenterCTA [id number] 13:16:45CT BRAIN WITHOUT IV CONTRAST, CTA CAROTID, CTA BRAINBRAIN CT WITHOUT CONTRAST INDICATION: Unlisted Reason for Exam, intraparenchymal hematoma COMPARISON: None TECHNIQUE:Rapid acquisition spiral images were obtained between the aortic archand the cranial vertex during intravenous contrast infusion toreconstruct axial images and angiographic 3D maximum intensityprojections (MIP). 3-D volumetric reformatted images were created at [employer] workstation. Precontrast images of the brain were [...] opacities, which mayrepresent atelectasis, pneumonia or pulmonary edema.[facility] CenterCTA [id number] 13:16:45 [facility] : 1975 Sex: FCT BRAIN WITHOUT IV CONTRAST, CTA CAROTID, CTA BRAINBRAIN CT WITHOUT CONTRASTINDICATION: Unlisted Reason for Exam, intraparenchymal hematomaCOMPARISON: NoneTECHNIQUE:Rapid acquisition spiral images were obtained between the aortic archand the cranial vertex during intravenous contrast infusion toreconstruct axial images and angiographic 3D maximum intensityprojections (MIP). 3-D volumetric reformatted images were created at [employer] workstation. Precontrast images of the brain were [...] Signed By: Luís Mclain10/29/2022 13:18 CDTWorkstation Name: [id number] BRAIN WITHOUT IV [id number] 13:16:45 [facility] CENTERName: GEETHA MINOR : 1975 Sex: FCT BRAIN WITHOUT IV CONTRAST, CTA CAROTID, CTA BRAINBRAIN CT WITHOUT CONTRASTINDICATION: Unlisted Reason for Exam, intraparenchymal hematomaCOMPARISON: NoneTECHNIQUE:Rapid acquisition spiral images were obtained between the aortic archand the cranial vertex during intravenous contrast infusion toreconstruct axial images and angiographic 3D maximum intensityprojections (MIP). 3-D volumetric reformatted images were created at [employer] workstation. Precontrast images of the brain were [...] Signed By: Luís Mclain10/29/2022 13:18 CDTWorkstation Name: [id number] 13:16:45[facility] : 1975 Sex: FCT BRAIN WITHOUT IV CONTRAST, CTA CAROTID, CTA BRAINBRAIN CT WITHOUT CONTRASTINDICATION: Unlisted Reason for Exam, intraparenchymal hematomaCOMPARISON: NoneTECHNIQUE:Rapid acquisition spiral images were obtained between the aortic archand the cranial vertex during intravenous contrast infusion toreconstruct axial images and angiographic 3D maximum intensityprojections (MIP). 3-D volumetric reformatted images were created at [employer] workstation. Precontrast images of the brain were [...] Signed By: Luís Mclain10/29/2022 13:18 CDTWorkstation Name: [id number] Chang, [id number] 13:15:24 Test Item Value Reference Range Interpretation Comments GONADOTROPIN, CHORIONIC (HCG) QUANT < mIU/mL 0-10 (BEAKER) (test code = 649) Non- Females: <10 mIU/mL Females: Gestation Age Reference Range(mIU/mL) 0.2-1 Week 5-50 1-2 Weeks 50-500 2-3 Weeks 100-5,000 3-4 Weeks 500-10,000 4-5 Weeks 1,000-50,000 5-6 Weeks 10,000-100,000 6-8 Weeks 15,000- 200,000 2-3 Months 10,000-100,000 Housing Coordinator ID - Jorgeli, [id number] 13:07:55 Test Item Value Reference Range Interpretation Comments Osmolality, Ur (test code 529 See_Comment [ Automated message] = 2695-5) The system [employer] generated this result transmitted ref erence range: 50-1,200 mOsm/kg mOsm/kg . The reference range was not used to int erpret this result as normal/abnormal . Lab Interpretation (test Normal code = 28278-3) [facility] CenterOsmolality, [id number] 13:07:55 Test Item Value Reference Range Interpretation Comments Osmolality, Ur (test code 529 See_Comment [ Automated message] = 2695-5) The system [employer] generated this result transmitted ref erence range: 50-1,200 mOsm/kg mOsm/kg . The reference range was not used to int erpret this result as normal/abnormal . Lab Interpretation (test Normal code = 31161-5) [facility] CenterOsmolality, [id number] 13:07:55 Test Item Value Reference Range Interpretation Comments Osmolality, Ur (test code 529 See_Comment [ Automated message] = 2695-5) The system [employer] generated this result transmitted ref erence range: 50-1,200 mOsm/kg mOsm/kg . The reference range was not used to int erpret this result as normal/abnormal . Lab Interpretation (test Normal code = 32677-3) [facility] CenterOsmolality, [id number] 13:07:55 Test Item Value Reference Range Interpretation Comments Osmolality, Ur (test code 529 See_Comment [ Automated message] = 2695-5) The system [employer] generated this result transmitted ref erence range: 50-1,200 mOsm/kg mOsm/kg . The reference range was not used to int erpret this result as normal/abnormal . Lab Interpretation (test Normal code = 22219-6) [facility] CenterOsmolality, [id number] 13:07:55 Test Item Value Reference Range Interpretation Comments Osmolality, Ur (test code 529 See_Comment [ Automated message] = 2695-5) The system [employer] generated this result transmitted ref erence range: 50-1,200 mOsm/kg mOsm/kg . The reference range was not used to int erpret this result as normal/abnormal . Lab Interpretation (test Normal code = 70863-5) [facility] CenterOSMOLALITY, [id number] 13:07:55 Test Item Value Reference Range Interpretation Comments OSMOLALITY URINE 529 mOsm/kg See_Comment [Automated message] (BEAKER) (test code = The sy stem which 614) generated this result transmitted ref erence range: 50-1,200 mOsm/kg. The reference range was not used to int erpret this result as normal/abnormal . Urea Nitrogen, random [id number] 12:57:04 Test Item Value Reference Range Interpretation Comments Urea Nitrogen, Ur 186 mg/dL (test code = 3095-7) SUE (test code = Reference Range: No SUE) NormalsOperator ID - JS [facility] CenterUrea Nitrogen, random [id number] 12:57:04 Test Item Value Reference Range Interpretation Comments Urea Nitrogen, Ur 186 mg/dL (test code = 3095-7) SUE (test code = Reference Range: No SUE) NormalsOperator ID - JS [facility] CenterUrea Nitrogen, random [id number] 12:57:04 Test Item Value Reference Range Interpretation Comments Urea Nitrogen, Ur 186 mg/dL (test code = 3095-7) SUE (test code = Reference Range: No SUE) NormalsOperator [facility] [id number] 12:57:04 Test Item Value Reference Range Interpretation Comments Urea Nitrogen, Ur 186 mg/dL (test code = 3095-7) SUE (test code = Reference Range: No SUE) NormalsOperator ID - [facility] Monica[facility] Nitrogen, random [id number] 12:57:04 Test Item Value Reference Range Interpretation Comments Urea Nitrogen, Ur 186 mg/dL (test code = 3095-7) SUE (test code = Reference Range: No SUE) NormalsOperator ID - [facility] MonicaUREA NITROGEN, RANDOM [id number] 12:57:04 Test Item Value Reference Range Interpretation Comments UREA NITROGEN URINE (BEAKER) (test 186 mg/dL code = 538) Reference Range: No NormalsOperator ID - Sodium, random [id number] 12:57:03 Test Item Value Reference Range Interpretation Comments Sodium Urine (test 155 meq/L code = 2955-3) SUE (test code = Reference Range: No SUE) NormalsOperator ID - [facility] [id number] 12:57:03 Test Item Value Reference Range Interpretation Comments Sodium Urine (test 155 meq/L code = 2955-3) SUE (test code = Reference Range: No SUE) NormalsOperator ID - [facility], random [id number] 12:57:03 Test Item Value Reference Range Interpretation Comments Sodium Urine (test 155 meq/L code = 2955-3) SUE (test code = Reference Range: No SUE) NormalsOperator ID - [facility], random [id number] 12:57:03 Test Item Value Reference Range Interpretation Comments Sodium Urine (test 155 meq/L code = 2955-3) SUE (test code = Reference Range: No SUE) NormalsOperator ID - [facility], random [id number] 12:57:03 Test Item Value Reference Range Interpretation Comments Sodium Urine (test 155 meq/L code = 2955-3) SUE (test code = Reference Range: No SUE) NormalsOperator ID - JS [facility] RANDOM [id number] 12:57:03 Test Item Value Reference Range Interpretation Comments SODIUM URINE (BEAKER) (test code = 155 meq/L 243) Reference Range: No NormalsOperator ID - JSOSMOLALITY, [id number] 12:52:21 Test Item Value Reference Range Interpretation Comments OSMOLALITY, SERUM (BEAKER) (test 290 mOsm/kg 275-295 code = 615) [id number] 12:52:14 Test Item Value Reference Range Interpretation Comments SODIUM (BEAKER) (test code = 381) 140 meq/L 136-145 Housing Coordinator ID - MARCOPregnancy Screen, [id number] 09:52:55 Test Item Value Reference Range Interpretation Comments Preg Test, Ur (test code = 2112-1) Negative Negative Lab Interpretation (test code = Normal 03155-6) [facility] CenterPregnancy Screen, [id number] 09:52:55 Test Item Value Reference Range Interpretation Comments Preg Test, Ur (test code = 2112-1) Negative Negative Lab Interpretation (test code = Normal 21118-1) [facility] CenterPregnancy Screen, [id number] 09:52:55 Test Item Value Reference Range Interpretation Comments Preg Test, Ur (test code = 2112-1) Negative Negative Lab Interpretation (test code = Normal 74933-4) [facility] CenterPregnancy Screen, [id number] 09:52:55 Test Item Value Reference Range Interpretation Comments Preg Test, Ur (test code = 2112-1) Negative Negative Lab Interpretation (test code = Normal 34946-4) [facility] Screen, [id number] 09:52:55 Test Item Value Reference Range Interpretation Comments Preg Test, Ur (test code = 2112-1) Negative Negative Lab Interpretation (test code = Normal 02923-0) [facility] CenterPREGNANCY SCREEN, [id number] 09:52:55 Test Item Value Reference Range Interpretation Comments TEST URINE (BEAKER) (test Negative Negative code = 583) BLOOD GAS, [id number] 08:02:40 Test Item Value Reference Range Interpretation [...] (BEAKER) (test code = 1819) 40.0 T4, [id number] 06:13:37 Test Item Value Reference Range Interpretation Comments FREE T4 (BEAKER) (test code = 655) 0.90 ng/dL 0.70-1.48 Housing Coordinator ID - ADMINTSH/FREE T4 IF [id number] 05:34:42 Test Item Value Reference Range Interpretation Comments THYROID STIMULATING HORMONE 6.331 uIU/mL 0.350-4.940 H (BEAKER) (test code = 772) Housing Coordinator ID - HSDDYKUVSRIEAU1371-28-96 05:26:57 Test Item Value Reference Range Interpretation Comments MAGNESIUM (BEAKER) (test code = 1.8 mg/dL 1.6-2.6 627) Housing Coordinator ID - NQKJOZTIAGWVYLU8752-81-29 05:26:57 Test Item Value Reference Range Interpretation Comments PHOSPHORUS (BEAKER) (test code = 3.0 mg/dL 2.3-4.7 604) Housing Coordinator ID - MARCOCOMPREHENSIVE METABOLIC [id number] 05:26:56 Test Item Value Reference Range Interpretation [...] not appl icable for dialysis patien ts Housing Coordinator ID - MARCOXR CHEST 1 VIEW PORTABLE / [id number] 05:03:50 [facility] CENTERName: IVÁNGEETHA Irineo : 1975 Sex: FXR CHEST 1 [...] Signed By: Jaziel Monte10/29/2022 05:05 CDTWorkstation Name: [id number] 04:56:04 Test Item Value Reference Range Interpretation Comments PARTIAL THROMBOPLASTIN TIME 30.4 seconds 22.5-36.0 (BEAKER) (test code = 760) PROTHROMBIN TIME/[id number] 04:55:22 Test Item Value Reference Range Interpretation Comments PROTIME (BEAKER) 13.6 seconds 11.9-14.2 (test code = 759) INR (BEAKER) (test 1.06 See_Comment [Automat ed message] code = 370) The system [employer] generated this result transmitted ref erence range: <=5.90. The reference range was not used to int erpret this result as normal/abnormal . RECOMMENDED COUMADIN/WARFARIN INR THERAPY RANGESSTANDARD DOSE: 2.0 - 3.0 Includes: PROPHYLAXIS for venous thrombosis, systemic embolization; TREATMENT for venous thrombosis and/or pulmonary embolus.HIGH RISK: Target INR is 2.5-3.5 for patients with mechanical heart valves.CBC W/PLT COUNT & AUTO [id number] 04:50:18 Test Item Value Reference Range Interpretation [...] (BEAKER) (test code = 2801) BLOOD GAS, [id number] 04:03:20 Test Item Value Reference Range Interpretation [...] (BEAKER) (test code = 1819) 60.0 CALCIUM, [id number] 03:59:22 Test Item Value Reference Range Interpretation Comments CALCIUM IONIZED (BEAKER) (test 1.09 mmol/L 1.12-1.27 L code = 698) PH, BLOOD (BEAKER) (test code = 7.33 1810) Central [id number] 03:47:51Murray Elise NP 10/29/2022 3:48 AMCentral Line [...] to verify the correct patient, procedure, equipment, manager client support and site/side marked as required.Indications:vascular accessAnesthesia: local [...] NoneComplications: NoneType of anesthesia: NoneGrafts or Implants: [facility] [id number] 03:47:51Murray Elise NP 10/29/2022 3:48 AMCentral Line [...] to verify the correct patient, procedure, equipment, manager client support and site/side marked as required.Indications:vascular accessAnesthesia: local [...] NoneComplications: NoneType of anesthesia: NoneGrafts or Implants: [facility] Line 2022-10-29 03:47:51Murray Elise NP 10/29/2022 3:48 AMCentral Line [...] to verify the correct patient, procedure, equipment, manager client support and site/side marked as required.Indications:vascular accessAnesthesia: local infiltration Anesthesia:Local Anesthetic: lidocaine 2% without epinephrinePreparation: skin prepped with 2% chlorhexidineLocation details: right internal jugularPatient position: flatCatheter type: triple lumenPre-procedure: landmarks identifiedUltrasound guidance: [...] NoneType of anesthesia: NoneGrafts or Implants: NoneCH[facility] CenterCentral [id number] 03:47:51Murray Elise NP 10/29/2022 3:48 AMCentral Line [...] to verify the correct patient, procedure, equipment, manager client support and site/side marked as required.Indications:vascular accessAnesthesia: local [...] NoneType of anesthesia: NoneGrafts or Implants: NoneCH[facility] CenterCentral Line 2022-10-29 03:47:51Murray Elise NP 10/29/2022 3:48 AMCentral Line [...] to verify the correct patient, procedure, equipment, manager client support and site/side marked as required.Indications:vascular accessAnesthesia: local infiltration Anesthesia:Local Anesthetic: lidocaine 2% without epinephrinePreparation: skin prepped with 2% chlorhexidineLocation details: right internal jugularPatient position: flatCatheter type: triple lumenPre-procedure: landmarks identifiedUltrasound guidance: [...] NoneType of anesthesia: NoneGrafts or Implants: None[facility] CenterIn[facility] Arterial [id number] 03:46:45Murray Elise NP 10/29/2022 3:47 AMInsert Arterial [...] to verify the correct patient, procedure, equipment, manager client support and site/side marked as required.Preparation: Patient was prepped and draped in the usual sterile fashion.Indications: multiple ABGs and hemodynamic monitoringLocation: right radial Anesthesia:Local Anesthetic: lidocaine 2% without epinephrineAllen's test normal: yesNeedle gauge: 18Seldinger technique: Seldinger technique usedNumber of attempts: 1Post- procedure: line sutured and dressing appliedPost-procedure CMS: normalPatient tolerance: patient tolerated the procedure well with no immediate complications [facility] CenterInsert Arterial [id number] 03:46:45Murray Elise NP 10/29/2022 3:47 AMInsert Arterial [...] to verify the correct patient, procedure, equipment, manager client support and site/side marked as required.Preparation: Patient was prepped and draped in the usual sterile fashion.Indications: multiple ABGs and hemodynamic monitoringLocation: right radial Anesthesia:Local Anesthetic: lidocaine 2% without epinephrineAllen's test normal: yesNeedle gauge: 18Seldinger technique: Seldinger technique usedNumber of attempts: 1Post- procedure: line sutured and dressing appliedPost-procedure CMS: normalPatient tolerance: patient tolerated the procedure well with no immediate complications [facility] CenterInsert Arterial [id number] 03:46:45Murray Elise NP 10/29/2022 3:47 AMInsert Arterial [...] to verify the correct patient, procedure, equipment, manager client support and site/side marked as required.Preparation: Patient was prepped and draped in the usual sterile fashion.Indications: multiple ABGs and hemodynamic monitoringLocation: right radial Anesthesia:Local Anesthetic: lidocaine 2% without epinephrineAllen's test normal: yesNeedle gauge: 18Seldinger technique: Seldinger technique usedNumber of attempts: 1Post- procedure: line sutured and dressing appliedPost-procedure CMS: normalPatient tolerance: patient tolerated the procedure well with no immediate complications [facility] CenterInss[facility] Arterial [id number] 03:46:45Murray Elise NP 10/29/2022 3:47 AMInsert Arterial [...] to verify the correct patient, procedure, equipment, manager client support and site/side marked as required.Preparation: Patient was prepped and draped in the usual sterile fashion.Indications: multiple ABGs and hemodynamic monitoringLocation: right radial Anesthesia:Local Anesthetic: lidocaine 2% without epinephrineAllen's test normal: yesNeedle gauge: 18Seldinger technique: Seldinger technique usedNumber of attempts: 1Post- procedure: line sutured and dressing appliedPost-procedure CMS: normalPatient tolerance: patient tolerated the procedure well with no immediate complications [facility] CenterInsert Arterial [id number] 03:46:45Murray Elise NP 10/29/2022 3:47 AMInsert Arterial [...] to verify the correct patient, procedure, equipment, manager client support and site/side marked as required.Preparation: Patient was prepped and draped in the usual sterile fashion.Indications: multiple ABGs and hemodynamic monitoringLocation: right radial Anesthesia:Local Anesthetic: lidocaine 2% without epinephrineAllen's test normal: yesNeedle gauge: 18Seldinger technique: Seldinger technique usedNumber of attempts: 1Post- procedure: line sutured and dressing appliedPost-procedure CMS: normalPatient tolerance: patient tolerated the procedure well with no immediate complications [facility] CenterEKG-[id number] 00:00:00Ordered by an unspecified provider.[facility] CenterEKG-[id number] 00:00:00 Ordered by an unspecified provider.[facility] CenterEKG-SCANNED 2022-10-29 00:00:00Ordered by an unspecified provider.[facility]-[id number] 00:00:00Ordered by an unspecified provider.[facility]-[id number] 00:00:00Ordered by an unspecified provider.[facility] CenterFungus culture + [id number] 08:28:10 Test Item Value Reference Range Interpretation Comments Result (test code = No fungus isolated in 6463-4) 28 days Fungus Smear (test No fungal elements seen code = 1406) [facility] CenterFungus culture + [id number] 08:28:10 Test Item Value Reference Range Interpretation Comments Result (test code = No fungus isolated in 6463-4) 28 days Fungus Smear (test No fungal elements seen code = 1406) [facility] culture + [id number] 08:28:10 Test Item Value Reference Range Interpretation Comments Result (test code = No fungus isolated in 6463-4) 28 days Fungus Smear (test No fungal elements seen code = 1406) [facility] CenterFungus culture + [id number] 08:28:10 Test Item Value Reference Range Interpretation Comments Result (test code = No fungus isolated in 6463-4) 28 days Fungus Smear (test No fungal elements seen code = 1406) [facility] CenterFuac[facility] + [id number] 08:28:10 Test Item Value Reference Range Interpretation Comments Result (test code = No fungus isolated in 6463-4) 28 days Fungus Smear (test No fungal elements seen code = 1406) [facility] CenterFungus culture + [id number] 08:28:10 Test Item Value Reference Range Interpretation Comments Result (test code = No fungus isolated in 6463-4) 28 days Fungus Smear (test No fungal elements seen code = 1406) [facility] CenterFUNGUS CULTURE + [id number] 08:28:10 Test Item Value Reference Range Interpretation Comments CULTURE (BEAKER) (test No fungus isolated in code = 1095) 28 days FUNGUS SMEAR (BEAKER) No fungal elements seen (test code = 1406) [id number] 05:54:28 Test Item Value Reference Range Interpretation Comments MAGNESIUM (BEAKER) (test code = 1.9 mg/dL 1.6-2.6 627) Housing Coordinator ID - NIYCCAZACTBILTJ1074-46-65 05:54:28 Test Item Value Reference Range Interpretation Comments PHOSPHORUS (BEAKER) (test code = 5.2 mg/dL 2.3-4.7 H 604) Housing Coordinator ID - MARCOBASIC METABOLIC [id number] 05:54:27 Test Item Value Reference Range Interpretation [...] not appl icable for dialysis patien ts Housing Coordinator ID - MARCOCBC W/PLT COUNT & AUTO [id number] 05:42:51 Test Item Value Reference Range Interpretation [...] PERCENT (BEAKER) (test code = 2801) CALCIUM, [id number] 05:36:04 Test Item Value Reference Range Interpretation Comments CALCIUM IONIZED (BEAKER) (test 1.12 mmol/L 1.12-1.27 code = 698) PH, BLOOD (BEAKER) (test code = 7.42 1810) Anaerobic [id number] 02:03:45 Test Item Value Reference Range Interpretation Comments Result (test code = No anaerobes isolated 6463-4) [facility] [id number] 02:03:45 Test Item Value Reference Range Interpretation Comments Result (test code = No anaerobes isolated 6463-4) [facility] [id number] 02:03:45 Test Item Value Reference Range Interpretation Comments Result (test code = No anaerobes isolated 6463-4) [facility] [id number] 02:03:45 Test Item Value Reference Range Interpretation Comments Result (test code = No anaerobes isolated 6463-4) [facility] [id number] 02:03:45 Test Item Value Reference Range Interpretation Comments Result (test code = No anaerobes isolated 6463-4) [facility] [id number] 02:03:45 Test Item Value Reference Range Interpretation Comments Result (test code = No anaerobes isolated 6463-4) [facility] [id number] 02:03:45 Test Item Value Reference Range Interpretation Comments CULTURE (BEAKER) (test No anaerobes isolated code = 1095) STD Panel - CT/GC [id number] 17:37:44 Test Item Value Reference Interpretation Comments Range C. trachomatis NOT DETECTED RNA, TMA (test code = 5477216) N. gonorrhoeae NOT DETECTED REFERENCE RA NGE: NOT RNA, TMA (test DETECTED Meth odology: code = 8472551) Transcriptio n Mediated Amplification ( TMA)to detect RNA. The analytical perf ormance characteristics of thisassay, when used to test SurePat h(TM) specimens haveb een determined by [employer]. Th e modificationsha ve not been cleared or approved by the FDA. This assayhas b een validated pursu ant to the CLIA regula tions andis used for clinical purpos es. For additional information, pl ease refer tohttps://educa tion.Zeebo. com/faq /ITP903(This li nk is being provided for informational/e ducatio nal purposes on ly.) SUE (test code = Performing Lab SUE) *[email or web address] [address] [address] Sylvie Gresham MD, PhD [facility] Panel - CT/GC [id number] 17:37:44 Test Item Value Reference Interpretation Comments Range C. trachomatis NOT DETECTED RNA, TMA (test code = 7095619) N. gonorrhoeae NOT DETECTED REFERENCE RA NGE: NOT RNA, TMA (test DETECTED Meth odology: code = 7257842) Transcriptio n Mediated Amplification ( TMA)to detect RNA. The analytical perf ormance characteristics of thisassay, when used to test SurePat h(TM) specimens haveb een determined by [facility]. Th e modificationsha ve not been cleared or approved by the FDA. This assayhas b een validated pursu ant to the CLIA regula tions andis used for clinical purpos es. For additional information, pl ease refer tohttps://educa tion.TriplePulse/faq /NWV015(This li nk is being provided for informational/e ducatio nal purposes on ly.) SUE (test code = Performing Lab SUE) *[email or web address] [address] [address] Sylvie Gresham MD, PhD [facility] Panel - CT/GC [id number] 17:37:44 Test Item Value Reference Interpretation Comments Range C. trachomatis NOT DETECTED RNA, TMA (test code = 1639533) N. gonorrhoeae NOT DETECTED REFERENCE RA NGE: NOT RNA, TMA (test DETECTED Meth odology: code = 6192491) Transcriptio n Mediated Amplification ( TMA)to detect RNA. The analytical perf ormance characteristics of thisassay, when used to test SurePat h(TM) specimens haveb een determined by [facility]. Th e modificationsha ve not been cleared or approved by the FDA. This assayhas b een validated pursu ant to the CLIA regula tions andis used for clinical purpos es. For additional information, pl ease refer tohttps://[employer] Systemsa [employer]eebo. [employer]/faq /SEL018(This li nk is being provided for informational/e ducatio nal purposes on ly.) SUE (test code = Performing Lab SUE) *[facility] [address] [address] Sylvie Gresham MD, PhD [facility] Panel - CT/GC [id number] 17:37:44 Test Item Value Reference Interpretation Comments Range C. trachomatis NOT DETECTED RNA, TMA (test code = 4635727) N. gonorrhoeae NOT DETECTED REFERENCE RA NGE: NOT RNA, TMA (test DETECTED Meth odology: code = 2272147) Transcriptio n Mediated Amplification ( TMA)to detect RNA. The analytical perf ormance characteristics of thisassay, when used to test SurePat h(TM) specimens haveb een determined by [facility]. Th e modificationsha ve not been cleared or approved by the FDA. This assayhas b een validated pursu ant to the CLIA regula tions andis used for clinical purpos es. For additional information, pl ease refer tohttps://educa tiJH Network.Zeebo. [employer]/faq /XVG885(This li nk is being provided for informational/e ducatio nal purposes on ly.) SUE (test code = Performing Lab SUE) *[email or web address] [address] [address] Sylvie Gresham MD, PhD [facility] Panel - CT/GC [id number] 17:37:44 Test Item Value Reference Interpretation Comments Range C. trachomatis NOT DETECTED RNA, TMA (test code = 5421238) N. gonorrhoeae NOT DETECTED REFERENCE RA NGE: NOT RNA, TMA (test DETECTED Meth odology: code = 1727955) Transcriptio n Mediated Amplification ( TMA)to detect [...] es. For additional information, pl ease refer tohttps://[employer]/faq /AWF196(This li nk is being provided for informational/e ducatio nal purposes on ly.) SUE (test code = Performing Lab SUE) *[facility] [address] [place] [address] Sylvie Gresham MD, PhD [facility]/GC [id number] 17:37:44 Test Item Value Reference Interpretation Comments Range C. trachomatis NOT DETECTED RNA, TMA (test code = 8149230) N. gonorrhoeae NOT DETECTED REFERENCE RA NGE: NOT RNA, TMA (test DETECTED Meth odology: code = 3774184) Transcriptio n Mediated Amplification ( TMA)to detect RNA. The analytical perf ormance characteristics of thisassay, when used to test SurePat h(TM) specimens haveb een determined by [employer]. Th e modificationsha ve not been cleared or approved by the FDA. This assayhas b een validated pursu ant to the CLIA regula tions andis used for clinical purpos es. For additional information, pl ease refer tohttps://educa Innovate2.Zeebo. [employer]/faq /JPO738(This li nk is being provided for informational/e ducatio nal purposes on ly.) SUE (test code = Performing Lab SUE) *[facility] [place] [address] [place] [address] Sylvie Gresham MD, PhD [facility] CenterBASIC METABOLIC [id number] 16:40:09 Test Item Value Reference Range Interpretation [...] not appl icable for dialysis patien ts Housing Coordinator ID - BSOsmolality, [id number] 12:43:16 Test Item Value Reference Range Interpretation Comments Osmolality, Ur (test code 245 See_Comment [ Automated message] = 2695-5) The system [employer] generated this result transmitted ref erence range: 50-1,200 mOsm/kg mOsm/kg . The reference range was not used to int erpret this result as normal/abnormal . Lab Interpretation (test Normal code = 33823-2) [facility] CenterOSMOLALITY, [id number] 12:43:16 Test Item Value Reference Range Interpretation Comments OSMOLALITY URINE 245 mOsm/kg See_Comment [Automated message] (BEAKER) (test code = The sy stem which 614) generated this result transmitted ref erence range: 50-1,200 mOsm/kg. The reference range was not used to int erpret this result as normal/abnormal . Sodium, random [id number] 11:48:27 Test Item Value Reference Range Interpretation Comments Sodium Urine (test 82 meq/L code = 2955-3) SUE (test code = Reference Range: No SUE) NormalsOperator ID - ADMIN [facility] CenterUrea Nitrogen, random [id number] 11:48:27 Test Item Value Reference Range Interpretation Comments Urea Nitrogen, Ur 121 mg/dL (test code = 3095-7) SUE (test code = Reference Range: No SUE) NormalsOperator ID - ADMIN [facility] HospitalODIUM, RANDOM [id number] 11:48:27 Test Item Value Reference Range Interpretation Comments SODIUM URINE (BEAKER) (test code = 82 meq/L 243) Reference Range: No NormalsOperator ID - ADMINUREA NITROGEN, RANDOM URINE 2022-08-10 11:48:27 Test Item Value Reference Range Interpretation Comments UREA NITROGEN URINE (BEAKER) (test 121 mg/dL code = 538) Reference Range: No NormalsOperator ID - ADMINCreatinine, random [id number] 11:48:26 Test Item Value Reference Range Interpretation Comments Creatinine, Ur 20.9 mg/dL (test code = 2161-8) SUE (test code = Reference Range: No SUE) NormalsOperator ID - ADMIN [facility] CenterCREATININE, RANDOM [id number] 11:48:26 Test Item Value Reference Range Interpretation Comments CREATININE URINE (BEAKER) (test 20.9 mg/dL code = 375) Reference Range: No NormalsOperator ID - ADMINWound culture + gram stain 2022-08-10 11:24:49 Test Item Value Reference Range Interpretation Comments Result (test code = No growth 6463-4) Gram Stain Result <1+ gram positive cocci (test code = 1123) in pairs [facility] CenterWound culture + gram [id number] 11:24:49 Test Item Value Reference Range Interpretation Comments Result (test code = No growth 6463-4) Gram Stain Result <1+ gram positive cocci (test code = 1123) in pairs [facility] CenterWound culture + gram [id number] 11:24:49 Test Item Value Reference Range Interpretation Comments Result (test code = No growth 6463-4) Gram Stain Result <1+ gram positive cocci (test code = 1123) in pairs [facility] CenterWound culture + gram [id number] 11:24:49 Test Item Value Reference Range Interpretation Comments Result (test code = No growth 6463-4) Gram Stain Result <1+ gram positive cocci (test code = 1123) in pairs [facility] + gram [id number] 11:24:49 Test Item Value Reference Range Interpretation Comments Result (test code = No growth 6463-4) Gram Stain Result <1+ gram positive cocci (test code = 1123) in pairs [facility] culture + gram [id number] 11:24:49 Test Item Value Reference Range Interpretation Comments Result (test code = No growth 6463-4) Gram Stain Result <1+ gram positive cocci (test code = 1123) in pairs [facility] C[facility] + GRAM [id number] 11:24:49 Test Item Value Reference Range Interpretation Comments CULTURE (BEAKER) (test No growth code = 1095) GRAM STAIN RESULT 4+ WBCs (BEAKER) (test code = 1123) GRAM STAIN RESULT <1+ gram positive cocci (BEAKER) (test code = in pairs 29561) T4, [id number] 11:12:44 Test Item Value Reference Range Interpretation Comments FREE T4 (BEAKER) (test code = 655) 1.25 ng/dL 0.70-1.48 Housing Coordinator ID - AAHAMIDOSMOLALITY, [id number] 11:11:51 Test Item Value Reference Range Interpretation Comments OSMOLALITY, SERUM (BEAKER) (test 271 mOsm/kg 275-295 L code = 615) TSH/FREE T4 IF [id number] 10:36:27 Test Item Value Reference Range Interpretation Comments THYROID STIMULATING HORMONE 10.385 uIU/mL 0.350-4.940 H (BEAKER) (test code = 772) Housing Coordinator ID - [id number] 10:30:32 Test Item Value Reference Range Interpretation Comments CORTISOL, TOTAL (BEAKER) (test 11.9 ug/dL 3.7-19.4 code = 2755) Housing Coordinator ID - AAHAMIDCT, DRAINAGE, SOFT TISSUE FLUID [id number] 09:56:00Reason for exam:->tubo-ovarian abscess [facility] : 1975 Sex: [...] MDReport Verified Date/Time: 08/10/2022 09:56:28 Reading Location: [address] Neuro Reading Room RADIOLOGIC GUIDANCE & INTERP/[id number] 09:56:00FINAL REPORT CT guided fluid aspiration Clinical [...] left lower quadrant fluid collection. Signed: [facility] Verified Date/Time: 08/10/2022 09:56:28 Reading Location: [address] Neuro Reading Room [facility]/[id number] 09:56:00FINAL REPORT CT guided fluid aspiration Clinical [...] Whiteside Verified Date/Time: 08/10/2022 09:56:28 Reading Location: [address] Neuro Reading Room [facility]RAD[facility] & INTERP/[id number] 09:56:00FINAL REPORT CT guided fluid aspiration Clinical [...] Whiteside Verified Date/Time: 08/10/2022 09:56:28 Reading Location: [address] Neuro Reading [facility]P/[id number] 09:56:00FINAL REPORT CT guided fluid aspiration Clinical [...] Whiteside Verified Date/Time: 08/10/2022 09:56:28 Reading Location: [address] Neuro Reading [facility] & INTERP/[id number] 09:56:00FINAL REPORT CT guided fluid aspiration Clinical [...] lower quadrant fluid collection. Signed: Nilo Whiteside [facility] Verified Date/Time: 08/10/2022 09:56:28 Reading Location: [address] Neuro Reading Room [facility] Angeles[facility] tolerance(Non-Nuclear Treadmill)2022-08-10 08:12:31 Protocol Name Lexiscan Time [...] PMConfirmed by Kelton Stapleton ([id number]) on 38:12:24 [facility] Angeles[facility]read[facility] tolerance(Non- Nuclear Treadmill)2022-08-10 08:12:31Protocol Name Lexiscan Time [...] PMConfirmed by Kelton Stapleton ([id number]) on 38:12:24 [facility] Angeles[facility] tolerance(Non-Nuclear Treadmill)2022-08-10 08:12:31Protocol Name Lexiscan Time In Exercise [...] 1:30:42 PMConfirmed by Kelton Stapleton ([id number]) on 08/10/2022 8:12:24 [facility] Angeles[facility] tolerance(Non-Nuclear Treadmill) 2022-08-10 08:12:31Protocol Name Lexiscan Time In Exercise Phase [...] PMConfirmed by Kelton Stapleton ([id number]) on :12:24 [facility] Angeles[facility] tolerance(Non- Nuclear Treadmill)2022-08-10 08:12:31Protocol Name Shani Time In Exercise Phase 00:01:00 Max. Systolic [...] PMConfirmed by Kelton Stapleton ([id number]) on :12:24 [facility] AngelesBASIC METABOLIC [id number] 06:16:41 Test Item Value Reference Range Interpretation [...] not appl icable for dialysis patien ts Housing Coordinator ID - ADMINSpecimen slightly [id number] 06:16:41 Test Item Value Reference Range Interpretation Comments MAGNESIUM (BEAKER) 1.9 mg/dL 1.6-2.6 Specimen slightly (test code = 627) hemolyzed Housing Coordinator ID - ADMINCBC (HEMOGRAM ONLY)2022-08-10 05:54:45 Test [...] 0-0 CELLS (BEAKER) (test code = 413) [id number] 04:19:50 Test Item Value Reference Range Interpretation Comments MAGNESIUM (BEAKER) (test code = 1.3 mg/dL 1.6-2.6 L 627) Housing Coordinator ID - MMBASIC METABOLIC [id number] 04:19:50 Test Item Value Reference Range Interpretation [...] not appl icable for dialysis patien ts Housing Coordinator ID - MMSpecimen slightly ictericCBC (HEMOGRAM ONLY)2022-08-09 [...] (BEAKER) (test code = 413) BASIC METABOLIC [id number] 06:27:34 Test Item Value Reference Range Interpretation [...] not appl icable for dialysis patien ts Housing Coordinator ID - DAMIÁN WSpecimen slightly ictericB-TYPE NATRIURETIC FACTOR (BNP) 2022-08-08 05:56:50 Test Item Value Reference Range Interpretation Comments B-TYPE NATRIURETIC PEPTIDE (BEAKER) 202 pg/mL 0-100 H (test code = 700) Housing Coordinator ID - BSCBC (HEMOGRAM ONLY)2022-08-08 05:36:13 Test [...] (BEAKER) (test code = 413) BASIC METABOLIC [id number] 05:39:11 Test Item Value Reference Range Interpretation [...] not appl icable for dialysis patien ts Housing Coordinator ID - ADMINSpecimen slightly ictericCBC (HEMOGRAM ONLY)2022-08-07 [...] 0-0 (BEAKER) (test code = 413) CT, [id number] 07:32:00Unlisted Reason for Exam - Click Yes and Enter Reason Below->NoProtocol Please Specify:->Standard ProtocolWill this procedure require oral contrast?->No [facility] 1975 [...] mild increase in size from 07/30/2022. Signed: Dion Vigil Verified Date/Time: 08/06/2022 07:32:46 Reading Location: [facility] Diagnostic Imaging Reading Room - [place] [id number] S HOSPITAL ABDOMEN/PELVIS WITH IV CONTRAST Standard [id number] 07:32:00FINAL REPORT CT abdomen and pelvis with [...] mild increase in size from 07/30/2022. Signed: Dion Vigil Verified Date/Time: 08/06/2022 07:32:46 Reading Location: [facility] Diagnostic Imaging Reading Room - [place] [address] [facility] AngelesCT [facility]PELVIS WITH IV CONTRAST Standard [id number] 07:32:00FINAL REPORT CT abdomen and pelvis with [...] mild increase in size from 07/30/2022. Signed: Dion Vigil MDReport Verified Date/Time: 08/06/2022 07:32:46 Reading Loc ation: [facility] Diagnostic Imaging Reading Room - [facility] F1 [address] [facility] CT ABDOMEN/PELVIS WITH IV CONTRAST Standard [id number] 07:32:00FINAL REPORT CT abdomen and pelvis with contrast History: Tubo- ovarian abscess Comparison: none Technique: serial axial imaging [...] liver. The patient is status post cholecystectomy. Unremarkabl e appearance of the adrenal glands. Moderate cortical [...] mild increase in size from 07/30/2022. Signed: Dion Vigil MDReppershing memorial hospital Verified Date/Time: 08/06/2022 07:32:46 Reading Loc ation: [facility] Diagnostic Imaging Reading Room - [facility] F1 [address] [facility] CT ABDOMEN/PELVIS WITH IV CONTRAST Standard [id number] 07:32:00FINAL REPORT CT abdomen and pelvis with contrast History: Tubo- ovarian abscess Comparison: none Technique: serial axial imaging [...] liver. The patient is status post cholecystectomy. Unremarkabl e appearance of the adrenal glands. Moderate cortical [...] mild increase in size from 07/30/2022. Signed: Dion Vigil MDReport Verified Date/Time: 08/06/2022 07:32:46 Reading Loc ation: [facility] Diagnostic [facility] [address] [facility] CT ABDOMEN/PELVIS WITH IV CONTRAST Standard [id number] 07:32:00FINAL REPORT CT abdomen and pelvis with contrast History: Tubo- ovarian abscess Comparison: none Technique: serial axial imaging [...] liver. The patient is status post cholecystectomy. Unremarkabl e appearance of the adrenal glands. Moderate cortical [...] mild increase in size from 07/30/2022. Signed: Dion Vigil MDReport Verified Date/Time: 08/06/2022 07:32:46 Reading Loc ation: [facility] Diagnostic Imaging Reading Room - [facility] F1 [address] [facility] Screen, [id number] 21:59:05 Test Item Value Reference Range Interpretation Comments Preg Test, Ur (test code = 2112-1) Negative Negative Lab Interpretation (test code = Normal 13732-7) [facility], [id number] 21:59:05 Test Item Value Reference Range Interpretation [...] CONCENTRATION Adequate (CELLAVISION)(BEAKER) (test code = 3438) Housing Coordinator ID - Salena comments: Slide comments:BASIC METABOLIC [...] not appl icable for dialysis patien ts Housing Coordinator ID - ADMINSpecimen slightly ictericPROTHROMBIN TIME/[id number] 21:25:45 Test Item Value Reference Range Interpretation [...] mechanical heart valves.CBC W/PLT COUNT & AUTO [id number] 21:20:49 Test Item Value Reference Range Interpretation [...] (BEAKER) (test code = 413) Transthoracic echo [id number] 16:18:18Ejection FractionSLEH ECHO HEARTLAB MKCKESSON [facility] CenterTransthor[facility] echo [id number] 16:18:18Ejection FractionSLEH ECHO HEARTLAB MKCKM[facility]ON [facility] CenterTransthoracic echo [id number] 16:18:18Ejection FractionSLEH ECHO HEARTLAB MKCKESSON [facility] CenterTransthoracic echo result 2022-08-03 16:18:18Ejection FractionSLEH ECHO HEARTLAB MKCKM[facility]ON [facility] CenterTransthoracic echo [id number] 16:18:18Ejection FractionSLEH ECHO HEARTLAB [facility] Transthoracic echo [id number] 16:18:18Ejection FractionSLEH ECHO HEARTLAB [facility] HospitalBAS[facility]OLIC [id number] 05:26:56 Test Item Value Reference Range Interpretation [...] not appl icable for dialysis patien ts Housing Coordinator ID - MMSpecimen slightly ictericCBC (HEMOGRAM ONLY)2022-08-03 [...] CONCENTRATION Decreased (CELLAVISION)(BEAKER) (test code = 3438) Housing Coordinator ID - Salena comments: Slide comments:CBC W/PLT COUNT & AUTO [id number] 14:52:12 Test Item Value Reference Range Interpretation [...] (BEAKER) (test code = 413) BASIC METABOLIC [id number] 13:40:34 Test Item Value Reference Range Interpretation [...] not appl icable for dialysis patien ts Housing Coordinator ID - ADMINSpecimen moderately ictericMYOCARD IMAGING, MULTI, PHARM, [id number] 15:12:00Unlisted Reason for Exam - Click Yes and Enter Reason Below->NoBR[facility] IV[facility]N GEETHA L : 1975 Sex: FFINAL REPORT PROCEDURE: MYOCARDIAL PERFUSION SPECT IMAGING (Rest/Stress)CPT CODE: 06509 INDICATION: Cardiac screening, high CAD risk CARDIOVASCULAR [...] no prior study for comparison. Signed: Marilyn Cernaeppershing memorial hospital Verified Date/Time: 08/01/2022 15:12:23 NM myocardial perfusion SPECT, pharm(Lexiscan)2022-08-01 15:12:00FINAL REPORT PROCEDURE: MYOCARDIAL PERFUSION SPECT IMAGING (Rest/Stress)CPT CODE: 67192 INDICATION: Cardiac screening, high CAD risk CARDIOVASCULAR [...] prior study for comparison. Signed: Marilyn Cerna MDRnorma Verified Date/Time: 08/01/2022 15:12:23 [facility](Lexiscan) 2022-08-01 15:12:00FINAL REPORT PROCEDURE: MYOCARDIAL PERFUSION SPECT IMAGING (Rest/Stress)CPT CODE: 04277 INDICATION: Cardiac screening, high CAD risk CARDIOVASCULAR [...] Signed: Marilyn Cerna Verified Date/Time: 08/01/2022 15:12:23 [facility] myocardial perfusion SPECT, pharm(Lexiscan) 2022-08-01 15:12:00FINAL REPORT PROCEDURE: MYOCARDIAL PERFUSION SPECT IMAGING (Rest/Stress)CPT CODE: 34514 INDICATION: Cardiac screening, high CAD risk CARDIOVASCULAR [...] prior study for comparison. Signed: Marilyn Cerna MDRepramirez Verified Date/Time: 08/01/2022 15:12:23 [facility], pharm(Lexiscan) 2022-08-01 15:12:00FINAL REPORT PROCEDURE: MYOCARDIAL PERFUSION SPECT IMAGING (Rest/Stress)CPT CODE: 58557 INDICATION: Cardiac screening, high CAD risk CARDIOVASCULAR [...] Marilyn Cerna MDReport Verified Date/Time: 08/01/2022 15:12:23 [facility] SPECT, pharm(Lexiscan) 2022-08-01 15:12:00FINAL REPORT PROCEDURE: MYOCARDIAL PERFUSION SPECT IMAGING (Rest/Stress)CPT CODE: 44056 INDICATION: Cardiac screening, high CAD risk CARDIOVASCULAR [...] Marilyn Cerna MDReport Verified Date/Time: 08/01/2022 15:12:23 [facility] HospitalHEMOGLOBIN [id number] 13:52:52 Test Item Value Reference Range Interpretation Comments HEMOGLOBIN A1C 5.0 % See_Comment [Automated m essage] ELECTROPHORESIS (BEAKER) The system which (test code = 3811) generated this result transmitted ref erence range: <=5.6%. The reference range was not used to int erpret this result as normal/abnormal . "The A1c is measured using a [facility]-certified method. HbA1c value equal to or greater than 6.5% as thediagnosis cutoff for diabetes. An HbA1c value of 5.7- 6.4% indicates increased risk for diabetes (prediabetes)."Housing Coordinator ID - ADM (CELLAVISION MANUAL DIFF)2022-08-01 08:26:35 [...] CONCENTRATION Decreased (CELLAVISION)(BEAKER) (test code = 3438) Housing Coordinator ID - Remy PradoGiseleavaRegis comments: Slide comments:CBC W/PLT COUNT & AUTO [id number] 08:26:34 Test Item Value Reference Range Interpretation [...] (BEAKER) (test code = 413) HCG, QUANTITATIVE, [id number] 05:48:18 Test Item Value Reference Range Interpretation Comments GONADOTROPIN, CHORIONIC (HCG) QUANT < mIU/mL 0-10 (BEAKER) (test code = 649) Non- Females: <10 mIU/mL Females: Gestation Age Reference Range(mIU/mL) 0.2-1 Week 5-50 1-2 Weeks 50-500 2-3 Weeks 100-5,000 3-4 Weeks 500-10,000 4-5 Weeks 1,000-50,000 5-6 Weeks 10,000-100,000 6-8 Weeks 15,000- 200,000 2-3 Months 10,000-100,000 Housing Coordinator ID Gisele VIDALESBASIC METABOLIC PANEL 2022-08-01 05:41:39 [...] not appl icable for dialysis patien ts Housing Coordinator ID Gisele STEEL WSpecimen moderately [id number] 05:41:38 Test Item Value Reference Range Interpretation Comments MAGNESIUM (BEAKER) (test code = 1.7 mg/dL 1.6-2.6 627) Housing Coordinator [employer] [id number] 05:41:38 Test Item Value Reference Range Interpretation Comments PHOSPHORUS (BEAKER) (test code = 3.0 mg/dL 2.3-4.7 604) Housing Coordinator [employer] WPT/[id number] 05:39:59 Test Item Value Reference Range Interpretation [...] 2.5-3.5 for patients with mechanical heart valves.LIPID [id number] 22:24:08 Test Item Value Reference Range Interpretation [...] Borderline 130-159 High 160-189 Very High >=190 Housing Coordinator ID - [id number] ID - [id number] ID - [id number] slightly icteric U/S, ENDOVAGINAL (EV)2022-07-31 14:38:00Reason for exam:->[facility] for [facility] : 1975 Sex: [...] Duran MDReport Verified Date/Time: 07/31/2022 14:38:44 U/S, [id number] 14:38:00Reason for exam:->[facility] for [facility] : 1975 Sex: [...] follow-up imaging with ultrasound. Signed: Shauna Duran MDRrockville general hospital Verified Date/Time: 07/31/2022 14:38:44 U/S, DUPLEX, [id number] 14:38:00 [facility] : 1975 Sex: [...] follow-up imaging with ultrasound. Signed: Shauna Duran [facility] Verified Date/Time: 07/31/2022 14:38:44 US [id number] 14:38:00FINAL REPORT TECHNIQUE: Transabdominal and transvaginal grayscale [...] Shauna Duran MDReport Verified Date/Time: 07/31/2022 14:38:44 [facility] [id number] 14:38:00FINAL REPORT TECHNIQUE: Transabdominal and transvaginal grayscale [...] Signed: Shauna Duran Verified Date/Time: 07/31/2022 14:38:44 [facility] [id number] 14:38:00FINAL REPORT TECHNIQUE: Transabdominal and transvaginal grayscale [...] follow-up imaging with ultrasound. Signed: Shauna Duran MDRnorma Verified Date/Time: 07/31/2022 14:38:44 [facility] [id number] 14:38:00FINAL REPORT TECHNIQUE: Transabdominal and transvaginal grayscale [...] follow-up imaging with ultrasound. Signed: Shauna Duran [facility] Verified Date/Time: 07/31/2022 14:38:44 [facility] [id number] 14:38:00FINAL REPORT TECHNIQUE: Transabdominal and transvaginal grayscale [...] Shauna Duran MDReport Verified Date/Time: 07/31/2022 14:38:44 [facility] [id number] 14:38:00FINAL REPORT TECHNIQUE: Transabdominal and transvaginal grayscale [...] follow-up imaging with ultrasound. Signed: Kelly Shaunacandice Bauerort Verified Date/Time: 07/31/2022 14:38:44 [facility] [id number] 14:38:00FINAL REPORT TECHNIQUE: Transabdominal and transvaginal grayscale [...] Shauna Duran MDRharshort Verified Date/Time: 07/31/2022 14:38:44 [facility] [id number] 14:38:00FINAL REPORT TECHNIQUE: Transabdominal and transvaginal grayscale [...] follow-up imaging with ultrasound. Signed: Shauna Duran MDRort Verified Date/Time: 07/31/2022 14:38:44 [facility] [id number] 14:38:00FINAL REPORT TECHNIQUE: Transabdominal and transvaginal grayscale [...] Signed: Shauna Duran Verified Date/Time: 07/31/2022 14:38:44 [facility] [id number] 14:38:00FINAL REPORT TECHNIQUE: Transabdominal and transvaginal grayscale [...] Signed: Shauna Duran Verified Date/Time: 07/31/2022 14:38:44 [facility] [id number] 14:38:00FINAL REPORT TECHNIQUE: Transabdominal and transvaginal grayscale [...] follow-up imaging with ultrasound. Signed: Shauna Duran [facility] Verified Date/Time: 07/31/2022 14:38:44 [facility] [id number] 14:38:00FINAL REPORT TECHNIQUE: Transabdominal and transvaginal grayscale [...] Shauna Duran MDReport Verified Date/Time: 07/31/2022 14:38:44 [facility] [id number] 14:38:00FINAL REPORT TECHNIQUE: Transabdominal and transvaginal grayscale [...] Signed: Shauna Duran Verified Date/Time: 07/31/2022 14:38:44 [facility] [id number] 14:38:00FINAL REPORT TECHNIQUE: Transabdominal and transvaginal grayscale [...] Signed: Shauna Duran Verified Date/Time: 07/31/2022 14:38:44 [facility] [id number] 14:38:00FINAL REPORT TECHNIQUE: Transabdominal and transvaginal grayscale [...] follow-up imaging with ultrasound. Signed: Shauna Duran [facility] Verified Date/Time: 07/31/2022 14:38:44 [facility] W/PLT COUNT & AUTO [id number] 03:57:39 Test Item Value Reference Range Interpretation [...] H PERCENT (BEAKER) (test code = 2801) [id number] 03:56:52 Test Item Value Reference Range Interpretation Comments MAGNESIUM (BEAKER) (test code = 1.5 mg/dL 1.5-3.0 627) Housing Coordinator ID - [id number] ID - [id number] ID - [id number] ID - [id number] BASIC METABOLIC [id number] 03:55:31 Test Item Value Reference Range Interpretation [...] not appl icable for dialysis patien ts Housing Coordinator ID - [id number] ID - [id number] ID - PZST51Hnctbyum ID - [id number] ID - [id number] ID - [id number] ID - [id number] ID - [id number] ID - [id number] slightly yacieinTQUQYCQSXY6015-68-71 03:54:07 Test Item Value Reference Range Interpretation Comments PHOSPHORUS (BEAKER) (test code = 4.0 mg/dL 2.5-4.5 604) Housing Coordinator ID - [id number] 18:37:08 Test Item Value Reference Range Interpretation Comments MAGNESIUM (BEAKER) (test code = 1.6 mg/dL 1.5-3.0 627) Housing Coordinator ID - [id number] ID - [id number] ID - [id number] ID - [id number], CHEST, 1 VIEW, NON [id number] 16:51:00Reason for exam:->SOB, wheezingShould this be performed at the bedside?->Yes [facility] 1975 [...] not appl icable for dialysis patien ts Housing Coordinator ID - [id number] ID - [id number] ID - [id number] ID - [id number] ID - [id number] ID - [id number] ID - [id number] ID - [id number] ID - [id number] ID - [id number] ID - [id number] ID - [id number] TIME/INR 2022-07-30 16:00:01 Test Item Value Reference [...] mechanical heart valves.CBC W/PLT COUNT & AUTO [id number] 15:52:31 Test Item Value Reference Range Interpretation [...] PERCENT (BEAKER) (test code = 2801) TISSUE [id number] 12:09:00Surgical Pathology Report Case: [id number] Authorizing Provider: Trudy James MD Collected: 02/17/2019 1126 Ordering Location: [address] Received: 02/17/2019 1147 Service Pathologist: Angela Beach MD Specimen: Gallbladder A. GALLBLADDER, CHOLECYSTECTOMY: - CHRONIC CHOLECYSTITIS WITH CHOLELITHIASIS. Signing Pathologist Direct Phone Line: [phone] signed by Angela Beach MD on 02/19/2019 at 12:09 [id number] renal mass Gallbladder Received in formalin labeled [...] and trabeculated. Thewall measures 0.2 cm thick. Plant Maintenance Manager sections are submitted in A1-A2, with the inked proximal margin is A1. PA/ew Performed.[facility], Department of Pathology, [address] [place] [address], [facility], [facility] of [facility], [address] [place], [place] [address], [facility], Department of [facility], [address] [place] [address], RQF W/PLT COUNT & AUTO [id number] 07:03:00 Test Item Value Reference Range Interpretation [...] (BEAKER) (test code = 2801) BASIC METABOLIC [id number] 06:57:00 Test Item Value Reference Range Interpretation [...] APPLICABLE FOR DIALYSIS PATIEN TS. HEPATIC FUNCTION [id number] 06:57:00 Test Item Value Reference Range Interpretation [...] (test code = 347) hemolyzed HEPATIC FUNCTION [id number] 06:57:00 Test Item Value Reference Range Interpretation [...] 72 U/L 6-55 H 347) BASIC METABOLIC [id number] 06:57:00 Test Item Value Reference Range Interpretation [...] PATIEN TS. CBC W/PLT COUNT & AUTO [id number] 06:28:00 Test Item Value Reference Range Interpretation [...] PERCENT (BEAKER) (test code = 2801) SCREEN, [id number] 07:28:00 Test Item Value Reference Range Interpretation Comments TEST URINE (BEAKER) (test Negative code = 583) [id number] 07:28:00 Test Item Value Reference Range Interpretation Comments MAGNESIUM (BEAKER) 2.0 mg/dL 1.6-2.6 Specimen moderately (test code = 627) hemolyzed [id number] 07:28:00 Test Item Value Reference Range Interpretation Comments PHOSPHORUS (BEAKER) 4.0 mg/dL 2.3-4.7 Specimen moderately (test code = 604) hemolyzed BASIC METABOLIC [id number] 07:28:00 Test Item Value Reference Range Interpretation [...] APPLICABLE FOR DIALYSIS PATIEN TS. HEPATIC FUNCTION [id number] 07:28:00 Test Item Value Reference Range Interpretation [...] Specimen moderately (test code = 347) hemolyzed [id number] 07:28:00 Test Item Value Reference Range Interpretation Comments LIPASE (BEAKER) (test code = 749) 31 U/L 8-78 CBC W/PLT COUNT & AUTO [id number] 07:10:00 Test Item Value Reference Range Interpretation [...] (BEAKER) (test code = 2801) U/S, ABDOMINAL, [id number] 23:50:00Abdomen limited area? Add comment if clarification [...] dilatation or visualized choledocholithiasis. . Signed: Latasha Garcia MDReport Verified Date/Time: 02/15/2019 23:50:53 URINALYSIS W/ REFLEX URINE [id number] 22:43:00 Test Item Value Reference Range Interpretation [...] SOURCE(BEAKER) (test code = 2795) HEPATIC FUNCTION [id number] 17:03:00 Test Item Value Reference Range Interpretation [...] Specimen slightly (test code = 347) hemolyzed [id number] 16:00:00 Test Item Value Reference Range Interpretation Comments MAGNESIUM (BEAKER) 2.1 mg/dL 1.6-2.6 Specimen slightly (test code = 627) hemolyzed BASIC METABOLIC [id number] 16:00:00 Test Item Value Reference Range Interpretation [...] hemolyz ed (test code = 364) PROTHROMBIN TIME/[id number] 15:31:00 Test Item Value Reference Range Interpretation [...] is 2.5-3.5 for patients wiht mechanical heart valves.[id number] 15:31:00 Test Item Value Reference Range Interpretation Comments PARTIAL THROMBOPLASTIN TIME 31.4 seconds 22.5-36.0 (BEAKER) (test code = 760) CBC W/PLT COUNT & AUTO [id number] 15:14:00 Test Item Value Reference Range Interpretation [...] Consult Notes Date/Time Note Provider Source 2022-11-28 5252-31-99P52:23:09Associated Patrick Wallace OT [facility] 10:23:09 Order(s): CONSULT ADULT OCCUPATIONAL THERAPY OT GENERAL EVALUATIONConsult received via Sojern, EMR reviewed and evaluation completed 11/28/22. Patient referred to occupational therapy for evaluation and treatment. Patient is 47 year old female with chest pain, NSTEMI. 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 Luke's Health – Memorial Livingston HospitalDemimbres memorial hospitalment of Rehabilitation ServicesTotal Timed Treatment Codes: 10 [...] to enable patient to complete evaluation component. 91110-9Nmbztup odupTI9616-11-24Q65:15:28Consult noteTXT1.2.840.285928.1.13.104.2.7.2 .317423|[id number] for patient atgo64804-2Cgndwco wbrjWF381594768Gbpekl C Lawas [address] Lx[id number] NMGDEBJVPCUDMCSEXRYQPY9604-42-73L88: 15:281.2.840.697570.1.72.3.15|1.2.84 0.152415.1.13.104.2.7.2.727879_18983 39023 2022-11-28 5627-10-57Z95:45:00Associated Savanna Juarez PT [facility] 09:45:00 Order(s): CONSULT ADULT PHYSICAL THERAPY [...] setting of methamphetamine use), CAD c/b unspecified ND (02/2022 per CareEverywhere), HFpEF, hypertension, hyperlipidemia, COPD, GERD, and seizure disorder (not on medications) presenting as a transfer from [facility] for NSTEMI. Troponin peaked at [...] setting of methamphetamine use), CAD c/b unspecified ND (02/2022 per [facility]Everywhere), HFpEF, hypertension, hyperlipidemia, COPD, GERD, and seizure disorder (not on medications) presenting as a transfer from [facility] for NSTEMI. Troponin peaked at [...] a SS house, and sisterDME: Wheel Chair p8Bxipt level of Mobility: requires assistance with transfers, requires assistance with bed mobility, uses w/c primarily, family/caregiver. Per patient, her sister puts her on the wheelchair, pushes her on the wheelchair since 2022Suspected ischemic or hemorraghic stroke:Yes, Pre-Stroke Modified Blue Score: 4 - Moderately severe disability; unable to walk without assistance and unable to attend to own bodily needs without assistance Subjective: "My sister pushes me around"Patient/Family Goals: To go homePatient/Family verbalizes understanding of condition: Yes PAIN: denies pain before and after sessionCOMMUNICATIONPrimary Language: Arabic Able to Verbalize needs: Yes Vision:good; no [...] Time in Minutes: 33 minSavanna Juarez PT, DPTUnLegent Orthopedic HospitalRehabilitation Services A physical therapy evaluation of high [...] clinical presentation with unstable and unpredictable characteristics 31577-2Pfwtypc flvzUK8053-23-18Y64:53:18Consult noteTXT1.2.840.224963.1.13.104.2.7.2 .610563|[id number] for patient isdn61611-0Qqicitx cvfvRB211182054Fwkojr Pallera PT[address] [id number] FIBXGEUZTOIFUHKSSLURRW9673-94-19E81: 53:181.2.840.606661.1.72.3.15|1.2.84 0.381926.1.13.104.2.7.2.727879_18983 41963 2022-11-25 6851-07-99P51:49:18Associated PN-NEUROLOGY [facility] 18:49:18 Order(s): CONSULT NEUROLOGY STROKE SERVICE [...] with Dr. Rivera, Neurology Faculty Stroke pager: [phone] Shahnaz Borges, [facility], NeurologyPager: [phone] signed by Romaine Rivera MD at 11/26/2022 [...] reported) and/or communicating results to the patient/family/caregiver. 92721-8Wqjlvgs rwgnHO2880472Axlfbvdr, Hashem1.2.840.055388.1.13.104.2.7.2. 905682QrxygmacDaygcyOK4154-58-30X16: 21:11Consult noteTXT1.2.840.688412.1.13.104.2.7.2 .691048|[id number] for patient aimn73774-4Hmzenda kolwCDAF-FISJZJXJCQN-EEPADWFLCALRHQF [address] MnxyWicxkmvwmHocsarunjFQXR8587360372 FZTQEAGMHZUYKIEIFSWAJH8704-58-60G71: 21:111.2.840.269908.1.72.3.15|1.2.84 0.313679.1.13.104.2.7.2.727879_18956 87740 2022-11-25 4649-52-05Y98:00:00Associated Analy Caceres [facility] 18:00:00 Order(s): CONSULT PS PASTORAL Filippo CARE Windows Systems Architect visited with patient in response to consult for pastoral care and support. Patient was awake and acknowledged systems auditor's presence. Pt was alone in room. The Pt said she was of [employer]ism nicole. The PT. Expressed to the Windows Systems Architect of some fear,about her upcomming surgery that going to be done on her heart.Pt asked the Windows Systems Architect to pray for her and for God to give her peace. The Windows Systems Architect provided spiritual support through prayer of healing, peace and comfort. Windows Systems Architect provided pastoral presence, and validated feelings. Pastoral care will continue to follow up as needed. Rev.Analy Ferro [facility] Department of Pastoral CarePh: [phone]: [phone] 10618-1Qvkqghn opwtDS5557-40-15L39:31:33Consult noteTXT1.2.840.338123.1.13.104.2.7.2 .507899|[id number] for patient tcge10133-6Revchtu snceLQ698516558Fmhgovr M [address] LsljBd[id number] HWEVQGPGYNJWFWDFLLYGXY4452-85-02U86: 31:331.2.840.170469.1.72.3.15|1.2.84 0.561878.1.13.104.2.7.2.727879_18956 25904 2022-11-25 6520-89-90R08:53:13Associated PED-PEDIATRICS [facility] 10:53:13 Order(s): CONSULT ALLERGY ALLERGY & IMMUNOLOGY CONSULT NOTEDATE OF SERVICE: 11/25/22REASON FOR CONSULT: Aspirin allergyHPI: Patient is a 47 year old female with a past medical history significant for recent hemorrhagic stroke (10/29/22; 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 - Plan also explained to via kosovan translatorPatient seen with Dr. Magaña. Thank you [...] see the fellow's note for additional details. 71648-9Kmuupat mvqrOW9160165Uexf, Sarah1.2.840.937710.1.13.104.2.7.2.8 90305YpmzCooznOY2411-14-25X45:58:19C onsult noteTXT1.2.840.172903.1.13.104.2.7.2 .477940|[id number] for patient yttq89915-9Wddmhjc ogcyQUQWW-FOBYXQMETOYWM-GAUAIDCOMDLM [address] StreetVrbcNaw[id number] TLOQUXFMIXADKMSOMXAVVI4805-23-54B75: 58:191.2.840.941248.1.72.3.15|1.2.84 0.881826.1.13.104.2.7.2.727879_18954 72354 2022-11-24 2670-51-03Y79:08:12Associated NS-NEUROLOGICAL [facility] 16:08:12 Order(s): CONSULT SURGERY NEUROSURGERY NEUROSURGERY CONSULTATION HISTORY AND PHYSICALAttending Neurosurgeon: Dr. 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), CAD c/b unspecified ND (02/2022 per [facility]where), HFpEF, hypertension, hyperlipidemia, COPD, GERD, and seizure disorder (not on medications) presenting as a transfer from [facility] for NSTEMI currently on heparin [...] 100% 100% Weight: Height: Awake, alert, oriented k9JKKFO bilaterally at 3mmEOMI bilaterallySlight left lower facial [...] setting of methamphetamine use), CAD c/b unspecified ND (02/2022 per [facility]Everywhere), HFpEF, hypertension, hyperlipidemia, COPD, GERD, and seizure disorder (not on medications) presenting as a transfer from [facility] for NSTEMI currently on heparin drip. NSGY consulted for recs regarding heparin in light of recent hemorrhagic stroke. Pt at neurologic baseline s/p stroke.Recommendations:No neurosurgical interventionPlease consult neurology for management and recommendations of anticoagulation w/ hx of hemorrhagic strokeWill sign off at this timeChrismariangel White MDNeurosurgery ServiceFor inquiries please page [phone] signed by Burton Howell MD at 11/25/2022 12:23 PM CDTAssociated attestation - Burton Howell MD - 11/25/2022 12:23 PM CDT I personally evaluated and am primary in decision making on, Geetha Minor, and I agree with the documentation by Sinan White MD,neurosurgery resident.63414-6Ujiauvv sqnsWZ0471360Rxncup, Rudy P1.2.840.161693.1.13.104.2.7.2.71516 5TsnznuHfpqDLG7695-25-70Q28:23:14Con [facility] noteTXT1.2.840.467217.1.13.104.2.7.2 .312749|[id number] for patient bpvo24566-2Tlvinzu noteLNNS-NEUROLOGICAL SURGERYNS-NEUROLOGICAL SURGERY[address] StreetGvctZu[id number] LWJCSMEPPTGYRXECVUCEFL6911-15-43J18: 23:141.2.840.242126.1.72.3.15|1.2.84 0.043013.1.13.104.2.7.2.727879_18954 14995 History and Physical Notes Date/Time Note Provider Source 2022-11-24 11:33:08 4458-06-65L04:33:08Formatting of this note [facility] is different from the original.Images from the original note were not included.CCU History and Physical Date of Service: 11/24/2022 15:48 ICU day: Intubation Day: CHIEF COMPLAINT: Chest painHistory of Present IllnessGeetha Minor is a 47 year old female with a past medical history significant for recent hemorrhagic stroke (10/29/22; 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 On my interview, [...] for amphetamines during her recent hospitalization.Workup at [facility] showed ST depression and TWI [...] 454 ms QTC Calculation(Bazett) 460 ms P Ridge 19 degrees R Ridge 64 degrees T Ridge 254 degrees Normal sinus rhythm Possible Left [...] sedated at [facility]SH prior to transfer to [facility], extubated on 10/30, required nicardipine gtt [...] develop- Sedation/Analgesia: NoneRespCOPDHx tobacco abuse- DuoNebs prn- S1CBWiyjtnbakmtysiPYYJGTNmsjl painReported CAD HFpEFBradycardiaHTNHLDPatient presenting as a transfer from [facility] with NSTEMI. Troponin elevated here on arrival [...] evaluation of volume status- CXR- Will need [facility] this admission- Continue Plavix (allergic to [...] prophylaxis: heparinLines/Catheters:Peripheral IV 11/24/22 Right Antecubital Inserted REAL PROPERTY APPRAISER (Active) Number of days: 0 Dispo: CCUPrognosis: [...] ordering referrals and/or communicating with other health medicare specialist (when not separately reported), documenting clinical information in the electronic or other health record, and care coordination (not separately reported).- hemodynamically stable- Neurosurgery consult for systemic AC / DAPT in the future, given h/o ICH- allergy consult for ASA desensitizationJOSE Cierra GONZALEZ MD, [facility], [facility], [facility]OSPITALAAssistant ProfessorCardiology, Advanced Heart Failure, LVAD & Transplant ServiceDate of service: 220163322-4Qubseai and physical hagcNF1627755Zalboemoai-Onaeosep, Jose C1.2.840.092649.1.13.104.2.7.2.827976Gfihy cwddj-ZacveiaaDspkPQC0265-45-10T15:30:41Hi story and physical noteTXT1.2.840.019969.1.13.104.2.7.2.12903 9|[id number] for patient plza74006-5Ecboqeq and physical noteLNUTMB[address] DvejIgzuynvvbNzstdcziwFSVQ0320718640RWNANI FCHFEUNECLCBTADE7054-37-60M46:30:411.2.840 .462570.1.72.3.15|1.2.840.385186.1.13.104. 2.7.2.727879_[id number] Notes Date/Time Note Provider Source 2022-11-29 13:58:46 4572-32-09E09:58:46Formatting Desi Carol Ann as NATURALIZATION EXAMINER [facility] of this note is different from the original.2nd call no contact. 55065-1Vbcczezjw encounter CcnjSO0820-15-03F76:58:57Teleph one encounter NoteTXT1.2.840.141797.1.13.104. 2.7.2.883641|0771024110MPNkyvdj ble for patient azqb08635-0AwbbMK014485720Krfup kellie Deepak [address]TXTX[address] 89765WYZVZDWVTNYQGMKLUZVMMP5200 -09-14T13:58:571.2.840.836250.1 .72.3.15|1.2.840.414876.1.13.10 4.2.7.2.727879_1899775951 2022-11-29 12:58:12 1341-62-43H75:58:12Formatting [facility] of this note might be different from the original.TRANSITIONAL CARE MANAGEMENT ASSESSMENT11/29/2022 Geetha MinorJjcvcvtr203640FDofodwb Martinez is a 47 year old /White female was admitted on 11/24/[address] She was discharged on 11/28/22 with discharge disposition of HR- Routine Discharge.Admitting Physician: Ryne Yoder FDischarge Diagnosis: NSTEMI (non-ST elevated myocardial infarction) [I21.4]No contact.No linked episodesTCM Xos-ovim-mz-face outreach documentation: Future Appointments: 37756-7Fryfogdaj encounter MqizUD0869-76-74I52:58:44Teleph one encounter NoteTXT1.2.840.480070.1.13.104. 2.7.2.752676|[id number] ble for patient vtuw63435-4LncvAGBVALMMKP[address] StreetTXTX[address] 78062GKRVJGGRBSOXQNCPVCDTZU0916 -09-14T12:58:441.2.840.200388.1 .72.3.15|1.2.840.448386.1.13.10 4.2.7.2.727879_1899716552 2022-11-28 16:51:33 0374-03-26J21:51:33Formatting [facility] of this note might be different RN [...] of new skin breakdownOutcome: Adequate for discharge 72492-2Wkrc of care mrejBU8440-00-57D23:51:41Plan of care noteTXT1.2.840.595279.1.13.104. 2.7.2.523550|3384227056KAQslldd ble for patient usbj05910-4RpcrIQ292604009Lkxvj feroz Iniguez RN[address]TX[address] 94856SDWWADHIXQLOWPKJKLUPQL1134 -09-13T16:51:411.2.840.720222.1 .72.3.15|1.2.840.670561.1.13.10 4.2.7.2.727879_1898798115 2022-11-28 01:14:27 9052-85-92Z87:14:27Formatting Trang mendes [facility] of this note might be different [...] of new skin breakdownOutcome: Progressing as expected 39518-5Xznw of care iexwBN2016-97-55X57:14:30Plan of care noteTXT1.2.840.425777.1.13.104. 2.7.2.950320|9756828267XIBbjeph ble for patient wqub36518-9BanaCI251190156Rxrgn anders Morton RNKAISER RICHMOND MEDICAL [facility] - [address]TXTX[address] 52771ZKFVCBQAGTXAUUKHHMYGGH9181 -09-13T01:14:301.2.840.823594.1 .72.3.15|1.2.840.423494.1.13.10 4.2.7.2.727879_1897819579 2022-11-27 06:31:47 9275-78-57A18:31:47Formatting Laisha Bartlett RN [facility] of this note might be different [...] of new skin breakdownOutcome: Progressing as expected 30901-9Ediu of care iejrJU1170-35-23W23:31:49Plan of care noteTXT1.2.840.915410.1.13.104. 2.7.2.009879|4831828869QKPishjq ble for patient crgn98535-9QdlrNY106518820Rnbr N. Au RNUT[address]vdGalvestonGalvestonTXTX[address] 08607ELOYSOHQXBRGYDTCMMNHRQ0031 -09-12T06:31:491.2.840.045334.1 .72.3.15|1.2.840.561928.1.13.10 4.2.7.2.727879_1896843962 2022-11-26 21:20:10 6421-07-77Q17:20:10Formatting Angelia Cardenas RN [facility] - [facility] of this note might be different [...] Reduction in pain sensationOutcome: Progressing as expected 52226-8Augm of care mqnqOY3285-01-28Y64:20:13Plan of care noteTXT1.2.840.162884.1.13.104. 2.7.2.405611|9525147005TVYyteae [facility] quxk60512-8QahoNF084582966Rclrt y D Burns RNUT[address]vdGalvestonGalvestonTXTX[address] 60978JJSXWRAZNQOOFEKPITTPEC5823 -09-11T21:20:131.2.840.006300.1 .72.3.15|1.2.840.260376.1.13.10 4.2.7.2.727879_1896613986 2022-11-26 17:36:46 8078-87-99U04:36:46Formatting Sushma Velazquez RN [facility] of this note might be different [...] Reduction in pain sensationOutcome: Progressing as expected 29989-8Pckk of care swytNC1242-26-36H59:36:51Plan of care noteTXT1.2.840.909110.1.13.104. 2.7.2.328942|1462898879XQTxqojr ble for patient sehj36437-0UtvqHL462696948Dunop oscar Velazquez [address]TXTX[address] 20938XKCRVVSXAOWMXNEBKIUQYF4292 -09-11T17:36:511.2.840.333724.1 .72.3.15|1.2.840.348808.1.13.10 4.2.7.2.727879_[id number] 2022-11-25 23:27:36 4703-07-80I12:27:36Formatting Chuyita Marcial [facility] of this note might be different RN from the original.Problem: Falls, Risk ofGoal: Absence of fallsOutcome: Progressing as expected Problem: PainGoal: Control of pain at or below patient's documented comfort goalOutcome: Progressing as expected 03239-1Lgtk of care eovhGU9021-24-55W02:27:40Plan of care noteTXT1.2.840.139842.1.13.104. 2.7.2.333039|0650842146VKTmthqh ble for patient xsbm72883-1PtbjSR542304408Ydkgp ia D Rodriguez [address]vestonGalvestonTXTX[address] 68226TRARJUGIQXKLWOXMVJIWPF2850 -09-10T23:27:401.2.840.760488.1 .72.3.15|1.2.840.541532.1.13.10 4.2.7.2.727879_1895696159 2022-11-25 17:36:51 2505-44-48D14:36:51Formatting Angelia causey RN [facility] of this note might be different [...] of medication managementOutcome: Not progressing as expected 80766-3Mxff of care kgrpAR8966-09-92G64:36:56Plan of care noteTXT1.2.840.384537.1.13.104. 2.7.2.952525|7612361305SIHziisb [facility] ldtg07346-7LmxzTU184292175Dtmcw candice Carrion RN[address]TXTX[address] 86926WUGPBDFDTYZDZHWEJYEYAI4560 -09-10T17:36:561.2.840.126240.1 .72.3.15|1.2.840.881595.1.13.10 4.2.7.2.727879_1895662873 2022-07-30 20:59:40 87214105895537-72-38Q24:59:40 YAIMA GOMEZ [facility] GERALDINE CANDELARIOITY: Yuriy #: [id number] Room: [address] [place] [address] #: [id number] : 1975DATE OF ADMISSION: 07/30/2022ATE OF CONSULTATION: 07/30/2022REQUESTING PHYSICIAN:GROOVER AND STRIPER OPERATOR: Yaima Gomez, [facility] HOBARTonsultation is with lower quadrant pain, possible tubo-ovarianabscesses.HISTORY OF PRESENT ILLNESS: 47-year-old female with history ofpain, left lower quadrant that began three days ago, was at [facility] and transferred here this morning. Thought [...] this. Leukocytosis. Agree withcurrent plan, antibiotics, and REGULATORY AGENCY DIRECTOR. We will follow with you.JDF/MODLDD: 07/30/2022 17:17:10DT: 07/30/2022 20:59:40Job #: [id number] signed by: YAIMA GOMEZ at 2022-07-30 17:17:10.440BPJbdjjzsijrlu2775- 05-15T20:59:223697-77-79Z91:29: [id number], CSHHSDSMNEEEPVDQFLGLJ1875-88-35 T11:29:34
[2023-02-12] MEDS ORDERED: KETOROLAC 30 MG/ML INJ ONE (00:07)
[2023-02-12] MEDS ORDERED: ONDANSETRON 4 MG (ODT) TAB ONE (00:07)
[2023-02-12] MEDS ORDERED: HYDROCODONE/APAP 10/325 TAB ONE (00:07)
[2023-02-12 00:42] LABS: Hematocrit 31.7 % (36.0-45.0); Lymphocytes % 21.7 % (15.3-44.8); MCV 90.3 fL (80-100); Platelets 181 thou/uL (152-406); RBC Red Blood Cell Count 3.51 M/uL (3.86-4.86)
[2023-02-12 01:01] LABS: Albumin 3.8 g/dL (3.4-5.0); Bilirubin Direct 0.3 mg/dL (0-0.2); Bilirubin Indirect, Calculated 0.6 mg/dL (0.2-0.8); Bilirubin Total 0.9 mg/dL (0.2-1.0); Potassium 3.2 mEq/L (3.5-5.1); Protein, Total 6.6 g/dL (6.4-8.2)
[2023-02-12 01:07] LABS: Troponin High Sensitivity 61.1 pg/mL (<58.9)
--- NOTE | 2023-02-12 02:06 | EDPHYS ---
Physician Documentation [facility] Name: Geetha Khan Age: 47 yrs Sex: Female : 1975 Arrival Date: 02/11/2023 Time: 23:05 Bed 19 Private MD: ED Physician Uriel Cannon HPI: 02/11 23:25 This 47 yrs old Female presents to ER via EMS with complaints of chest pain . sp4 02/12 00:07 47-year-old female with history of left-sided paralysis, history of NSTEMI, history of sp4 CVA with residual left-sided weakness, history of COPD, hypertension, thyroid disorder. Presents with EMS for complaint of acute onset midsternal chest pain. Patient is well familiar to me from multiple prior visits for the same complaint. . 00:09 PM - [facility] by Dr. Olson - Findings: 1. Left main: Normal. 2. LAD: Entirely normal sp4 luminal regularities. 3. Left circumflex is with luminal irregularities throughout. 4. RCA: Proximal 30%, otherwise normal. Conclusion: No significant coronary artery disease. SR/MODL . . Historical: - Allergies: 02/11 23:25 Aspirin; jb4 23:25 CRANBERRY; jb4 23:25 FISH PRODUCT DERIVATIVES; jb4 23:25 GRAPEFRUIT; jb4 23:25 mushrooms; jb4 - Home Meds: 23:25 amlodipine oral [Active]; Dexamethasone Oral [Active]; atorvastatin oral [Active]; jb4 Metoprolol Tartrate Oral [Active]; lisinopril Oral [Active]; - PMHx: 23:25 Cerebrovascular accident; COPD; Hypertension; Myocardial infarction; Thyroid problem; jb4 Asthma; Seizures; - Family history:: not pertinent. ROS: 02/12 00:09 Constitutional: Negative for fever, chills, and weight loss, Cardiovascular: Positive sp4 midsternal chest pain All other systems are negative, Exam: 00:09 Constitutional: This is a well developed, well nourished patient who is awake, alert, sp4 and in no acute distress. Patient is debilitated female with left-sided weakness after her prior CVA Head/Face: Normocephalic, atraumatic. Eyes: Pupils equal round and reactive to light, extra-ocular motions intact. Lids and lashes normal. Conjunctiva and sclera are not injected. Cornea within normal limits. Periorbital areas with no swelling, redness, or edema. ENT: Nares patent. No nasal discharge, no septal abnormalities noted. Tympanic membranes are normal and external auditory canals are clear. Oropharynx with no redness, swelling, or masses, exudates, or evidence of obstruction, uvula midline. Mucous membranes moist. Neck: Trachea midline, no thyromegaly or masses palpated, and no cervical lymphadenopathy. Supple, full range of motion without nuchal rigidity, or vertebral point tenderness. Chest/axilla: Normal chest wall appearance and motion. Nontender with no deformity. No lesions are appreciated. Cardiovascular: Regular rate and rhythm with a normal S1 and S2. No gallops, murmurs, or rubs. Normal PMI, no JVD. No pulse deficits. Respiratory: Lungs have equal breath sounds bilaterally, clear to auscultation and percussion. No rales, rhonchi or wheezes noted. No increased work of breathing, no retractions or nasal flaring. Abdomen/GI: Soft, non-tender, with normal bowel sounds. No distension or tympany. No guarding or rebound. No evidence of tenderness throughout. Back: No spinal tenderness. No costovertebral tenderness. Skin: Warm, dry with normal turgor. Normal color with no rashes, no lesions, and no evidence of cellulitis. MS/ Extremity: Pulses equal, no cyanosis. Neurovascular intact. Left-sided paresis from prior CVA Neuro: Awake and alert, GCS 15, oriented to person, place, time, and situation. Cranial nerves II-XII grossly intact. Sensory grossly intact. There is left-sided paresis from prior CVA, no new neurologic deficits Psych: Awake, alert, with orientation to person, place and time. Behavior, mood, and affect are within normal limits 00:09 ECG was reviewed by the Attending Physician. EKG at 2345- normal sinus rhythm at a rate of 65, left ventricular hypertrophy, no ST elevation or depression Vital Signs: 02/11 23:16 BP 167 / 107; Pulse 66; Resp 16; Temp 98.2; Pulse Ox 100% on R/A; Weight 65.77 kg; jb4 Height 5 ft. 2 in. ; 02/12 00:57 BP 145 / 101; Pulse 66; Resp 16; Pulse Ox 97% on R/A; [facility] 02:28 BP 140 / 93; Pulse 64; Resp 16; Pulse Ox 98% on R/A; [facility] 02/11 23:16 Body Mass Index 26.52 (65.77 kg, 157.48 cm) [facility] MDM: 02/11 23:35 Patient medically screened. [facility] 02/12 02:03 Differential Diagnosis altered mental status, sepsis, flu. Data reviewed: vital signs, 4 nurses notes, EMS record, old medical records, lab test result(s), cardiac enzymes, electrolytes, hepatic panel, EKG. Consideration of Admission/Observation Escalation of care including admission/observation considered. ED course: Patient's troponin is actually below her baseline. No sign of acute ACS at this time. Left heart cath in November reveals no signs of critical coronary artery disease. Patient is stable for discharge home. . 02:06 ED course: There is mild hypokalemia, will replace p.o. single dose . [facility] 02/11 23:23 Order name: Basic Metabolic Panel; Complete Time: 01:56 [facility] 02/11 23:23 Order name: CBC with Diff; Complete Time: 01:56 [facility] 02/11 23:23 Order name: LFT's; Complete Time: 01:56 [facility] 02/11 23:23 Order name: Troponin HS; Complete Time: 01:56 [facility] 02/11 23:23 Order name: Cardiac monitoring; Complete Time: 00:00 [facility] 02/11 23:23 Order name: EKG - Nurse/Tech; Complete Time: 00:00 [facility] 02/11 23:23 Order name: IV Saline Lock; Complete Time: 00:00 [facility] 02/11 23:23 Order name: Labs collected and sent; Complete Time: 00:00 [facility] 02/11 23:23 Order name: O2 Per Protocol; Complete Time: 00:00 [facility] 02/11 23:23 Order name: O2 Sat Monitoring; Complete Time: 00:00 [facility] EC:09 Rate is 65 beats/min. Rhythm is regular, Normal Sinus Rhythm. QRS [place] is Normal. GA sp4 interval is normal. QRS interval is normal. QT interval is normal. No Q waves. T waves are Inverted in leads V5, V6. No ST changes noted. Clinical impression: No evidence of ischemia. Interpreted by me. Reviewed by me. Administered Medications: 00:00 Drug: Worley PO 10 mg-325 mg 1 tabs PO once Route: PO; jb4 00:00 Drug: Ondansetron PO 4 mg PO once Route: PO; jb4 00:00 Drug: Ketorolac IVP 30 mg IVP once Route: IVP; Site: right antecubital; jb4 00:00 Not Given (Pt allergicc): aspirinchewable tablet 324 mg PO once; 81 mg tablets x 4 jb4 02:23 Drug: Potassium Chloride PO 40 mEq PO once Route: PO; jb4 Disposition Summary: 02/12/23 02:05 Discharge Ordered Notes: Location: Home sp4 Problem: new sp4 Symptoms: have improved sp4 Condition: Stable sp4 Diagnosis - Chest pain, unspecified sp4 - Noncardiac chest pain, physical deconditioning sp4 Followup: sp4 - With: Private Physician - When: 7 - 10 days - Reason: Recheck today's complaints Discharge Instructions: - Discharge Summary Sheet sp4 - Nonspecific Chest Pain, Adult sp4 Forms: - Patient Portal Instructions sp4 Signatures: Dispatcher [employer] Jaziel Cameron RN RN jb4 Uriel Cannon MD MD sp4
--- NOTE | 2023-02-12 02:06 | ER ---
Nurse's Notes [facility] Name: Geetha Khan Age: 47 yrs Sex: Female : 1975 Arrival Date: 02/11/2023 Time: 23:05 Bed 19 Private MD: Diagnosis: Chest pain, unspecified;Noncardiac chest pain, physical deconditioning Presentation: 02/11 23:16 Chief complaint: EMS states: Pt called EMS for chest pain with respirations. Denies jb4 SOB, Dyspnea, N/V. Report sCP started yesterday at 9pm and has a headache. Coronavirus screen: At this time, the client does not indicate any symptoms associated with coronavirus-19. Ebola Screen: No symptoms or risks identified at this time. Initial Sepsis Screen: Does the patient meet any 2 criteria? No. Patient's initial sepsis screen is negative. Does the patient have a suspected source of infection? No. Patient's initial sepsis screen is negative. Risk Assessment: Do you want to hurt yourself or someone else? Patient reports no desire to harm self or others. Onset of symptoms was February 10, 2023. Transition of care: patient was not received from another setting of care. 23:16 Method Of Arrival: EMS: [facility] jb4 23:16 Acuity: CORRINA 3 jb4 Triage Assessment: 23:25 General: Appears in no apparent distress. uncomfortable, Behavior is calm, cooperative. jb4 Pain: Complains of pain in Left shoulder, left arm Pain does not radiate. Pain currently is 6 out of 10 on a pain scale. EENT: No signs and/or symptoms were reported regarding the EENT system. Neuro: Level of Consciousness is awake, alert, obeys commands, Oriented to person, place, time, situation. Cardiovascular: Patient's skin is warm and dry. Respiratory: Airway is patent Respiratory effort is even, unlabored, Respiratory pattern is regular, symmetrical. GI: No signs and/or symptoms were reported involving the gastrointestinal system. : No signs and/or symptoms were reported regarding the genitourinary system. Derm: Skin is intact, Skin is pink, warm \T\ dry. Musculoskeletal: Circulation, motion, and sensation intact. Range of motion: intact in all extremities. Historical: - Allergies: 23:25 Aspirin; jb4 23:25 CRANBERRY; jb4 23:25 FISH PRODUCT DERIVATIVES; jb4 23:25 GRAPEFRUIT; jb4 23:25 mushrooms; jb4 - Home Meds: 23:25 amlodipine oral [Active]; Dexamethasone Oral [Active]; atorvastatin oral [Active]; jb4 Metoprolol Tartrate Oral [Active]; lisinopril Oral [Active]; - PMHx: 23:25 Cerebrovascular accident; COPD; Hypertension; Myocardial infarction; Thyroid problem; jb4 Asthma; Seizures; - Family history:: not pertinent. Screenin/28 02:28 [facility] ED Fall Risk Assessment (Adult) History of falling in the last 3 months, jb4 including since admission No falls in past 3 months (0 pts) Confusion or Disorientation No (0 pts) Score/Fall Risk Level 0 - 2 = Low Risk Oriented to surroundings, Maintained a safe environment. Abuse screen: Denies threats or abuse. Nutritional screening: No deficits noted. Tuberculosis screening: No symptoms or risk factors identified. Assessment: 00:57 Reassessment: Patient appears in no apparent distress at this time. Patient and/or jb4 family updated on plan of care and expected duration. Pain level reassessed. Patient is alert, oriented x 3, equal unlabored respirations, skin warm/dry/pink. 02:28 Reassessment: Patient appears in no apparent distress at this time. Patient and/or jb4 family updated on plan of care and expected duration. Pain level reassessed. Patient is alert, oriented x 3, equal unlabored respirations, skin warm/dry/pink. Vital Signs: 02/11 23:16 BP 167 / 107; Pulse 66; Resp 16; Temp 98.2; Pulse Ox 100% on R/A; Weight 65.77 kg; jb4 Height 5 ft. 2 in. ; 02/12 00:57 BP 145 / 101; Pulse 66; Resp 16; Pulse Ox 97% on R/A; jb4 02:28 BP 140 / 93; Pulse 64; Resp 16; Pulse Ox 98% on R/A; jb4 02/11 23:16 Body Mass Index 26.52 (65.77 kg, 157.48 cm) jb4 ED Course: 02/11 23:14 Patient arrived in ED. as6 23:23 Uriel Cannon MD is Attending Physician. sp4 23:25 Triage completed. jb4 23:25 Arm band placed on right wrist. jb4 02/12 00:57 Jaziel Storm, RN is Primary Nurse. jb4 02:28 Patient has correct armband on for positive identification. Bed in low position. Call jb4 light in reach. Side rails up X 1. 02:28 No provider procedures requiring assistance completed. IV discontinued, intact, jb4 bleeding controlled, No redness/swelling at site. Pressure dressing applied. Administered Medications: 00:00 Drug: [place] PO 10 mg-325 mg 1 tabs PO once Route: PO; jb4 00:00 Drug: Ondansetron PO 4 mg PO once Route: PO; jb4 00:00 Drug: Ketorolac IVP 30 mg IVP once Route: IVP; Site: right antecubital; jb4 00:00 Not Given (Pt allergicc): aspirinchewable tablet 324 mg PO once; 81 mg tablets x 4 jb4 02:23 Drug: Potassium Chloride PO 40 mEq PO once Route: PO; jb4 Outcome: 02:05 Discharge ordered by . sp4 02:29 Discharged to home via wheelchair, with family, jb4 02:29 Condition: stable 02:29 Discharge instructions given to patient, Instructed on discharge instructions, follow up and referral plans. Demonstrated understanding of instructions, follow-up care, 02:29 Patient left the ED. jb4 Signatures: Jaziel Storm, YANETH WOLFE jb4 Florentin Lester RN RN as6 Uriel Cannon MD MD sp4
[2023-02-12] MEDS ORDERED: POTASSIUM CL SA 10 MEQ TAB PO ONE (02:25)
[2023-02-12 02:34] VITALS: TEMP 98.2
[2023-02-12 02:37] VITALS: BP 140/93; O2SAT 98
--- NOTE | 2023-02-14 15:24 | EKG ---
Test Date: 2023-02-11 Test Time: 23:45:13 Telephone Quotation Clerk: NAOMY MEASUREMENT RESULTS: Intervals: Rate: 65 MD: 184 QRSD: 90 QT: 430 QTc: 447 [place]: P: 49 MD: 184 QRS: 10 T: 157 INTERPRETIVE STATEMENTS: Normal sinus rhythm Left ventricular hypertrophy with repolarization abnormality Abnormal ECG Compared to ECG 02/06/2023 20:37:19 No significant changes Electronically Signed On 02-14-23 15:14:44 RETAIL MAINTENANCE TECHNICIAN by Josse Olson
== END 2023-02-12 02:29 | disposition home or self-care (01) ==
LOC: ER 23:05
DX: R07.89 Other chest pain (principal); Z72.3 Lack of physical exercise
CPT/HCPCS: 36415; 80048; 80076; 84484; 85025; 93005; 96374; 99284

== ENCOUNTER 2023-02-13 10:25 | Observation (INO) | payer SELFPAY ==
--- OUTSIDE RECORDS SUMMARY | 2023-02-13 10:40 | XMS REPORT | Continuity of Care Document ---
:1975 Author Organization [facility] t Address [address] [facility] [address] [place] [address] Care Team Providers Name Role Phone No, Pcp [facility] Primary Care Physician Unavailable MIR ARITA Attending Clinician Unavailable JUJU TAI Attending Clinician Unavailable KATHY ZEPEDA Attending Clinician Unavailable MURRAY ELISE Attending Clinician Unavailable Caty Wang - Elizabeth Attending Clinician Unavailable Doctor Unassigned, [place] Attending Clinician Unavailable Desi Sotelo LVN Attending Clinician RYNE YODER Attending Clinician Unavailable Zohaib Parsons MD Attending Clinician [phone] Ryne Yoder MD Attending Clinician Meghana Felix MD Attending Clinician Santiago Whiteside MD Attending Clinician [phone] Kathy Zepeda MD Attending Clinician Unavailable Bessy Shah MD Attending Clinician Juju Tai DO Attending Clinician Sonido ECHEVERRIA, Amanda Tejada Attending Clinician [phone] Mir Arita MD Attending Clinician Merchant ECHEVERRIA, Goyo Attending Clinician GOYO HANKINS Attending Clinician Unavailable Jason DYER, Murray Attending Clinician Vijay Jenkins Attending Clinician Fredis ECHEVERRIA, Popeye In Attending Clinician Fredrick ECHEVERRIA, Aida Barreto Attending Clinician [phone] Yariel ECHEVERRIA, Clifton Negro Attending Clinician [phone] Debra ECHEVERRIA, Kristin Cano Attending Clinician [phone] KRISTIN SHAH Attending Clinician Unavailable Servando ECHEVERRIA, Les Attending Clinician Christin ECHEVERRIA, Nena Attending Clinician Matias ECHEVERRIA, Leonid Orr Attending Clinician CLIFTON DE LUNA Attending Clinician Unavailable DAYRON FOSTER Attending Clinician Unavailable Dayron Foster MD Attending Clinician [phone] ZAIN SALAS Attending Clinician Unavailable AMANDA [...] Iqra kes y failure y failure 00:00: [facility] wale with with 00 Center hypoxia hypoxia Encephalop Encephalop Disease Active [facility] athy acute athy acute 8-14 [facility] 00:00: Medical 00 [place] NIGEL (acute NIGEL (acute Disease Active [facility] kidney kidney 8-14 [facility] injury) injury) 00:00: Medical 00 [place] Tubo-ovari Tubo-ovari Disease Active [facility] an abscess an abscess 5-21 [facility] 00:00: Medical 00 [place] Abdominal Abdominal Disease Recurre [facility] infection infection nce 5-16 [facility] 00:[facility]: Medical [place] Pelvic Pelvic Disease Active [facility] abscess in abscess in 5-15 [facility] female female 00:00: Medical 00 [place] Acute Acute Disease Active 2018-[address] [facility] cholecysti cholecysti 2-03 [facility] k[facility] tis tis 00:00: Medical 00 [place] Calculus Calculus Disease Active 2018-03 [facility] 04[facility]19 [facility] gallbladde gallbladde 00:00: Me dical r without r without 00 Cent er cholecysti cholecysti tis tis without without obstructio obstructio n n Transamini Transamini Disease Active 2018-[address] tis tis 2- [facility] 00:[facility]: Medical 00 Center Hypertensi Hypertensi Disease Recurre 2018-[address] [facility] on on nce 2 [facility] 00:00: Medical 00 [place] Seizure Seizure Disease Recurre 2018-[address] disorder disorder nce 2- [facility] 00:00: Medical 00 [place] Anemia Anemia Disease Active 2018-[address] [facility] 2-02 [facility] 00:00: Medical 00 [place] Thrombocyt Thrombocyt Disease Active 2018- [facility] osis osis 2- [facility] 00:[facility]: Medical 00 Center Hypertensi Hypertensi Disease Active 2018- [facility] ve crisis ve crisis 2- [facility] 00:00: Medical 00 Center Allergies, Adverse Reactions, Alerts Allergy Allergy Status Severity Reaction(s) Onset Inactive Treating Comm ents Source Name Type Date Date Clinician Scot Schulte Active Unknown - Uni vers y ty to See comments - ity of adverse 00:00: [place] reaction 00 [...] [facility] Sexual orientation [facility] Gender identity [facility]it y of [facility] Cigarettes smoked 2022-11-24 2022-11-24 Univers ity of current (pack per 00:00:00 00:00:00 [facility] ) - Reported Branch Cigarette 2022-11-24 2022-11-24 University of pack-years 00:00:00 00:00:00 [facility] Tobacco use and 2022-11-24 2022-11-24 Smokeless Universit y of exposure 00:00:00 00:00:00 tobacco non-user [facility] Alcohol intake 2022-11-24 2022-11-24 Ex-drinker University 00:00:00 00:00:00 (finding) [facility] History of Social 2022-11-07 2022-11-[address] [facility] function 00:00:00 00:00:00 Medical Center History of tobacco 2022-11-03 Passive smoker Un iversity of use 00:00:00 [facility] History [facility] 2022-08-06 2022-08-[address] [facility] Transport Med 00:00:00 00:00:[address] [facility] 2022-08-06 2022-08-[address] [facility] Housing Unable to 00:00:00 00:00:00 Medical Center Pay History [facility] 2022-08-06 2022-08-[address] [facility] Housing Places 00:00:00 00:00:00 Medical Ce nter Lived History [facility] 2022-08-06 2022-08-[address] [facility] Housing Homeless 00:00:00 00:00:00 Medical Center Last Year History [facility] 2019-02-15 2019-02-[address] [facility] Alcohol Binge 00:00:00 00:00:[address] History [facility] 2019-02-15 2019-02-15 1 [facility] Alcohol Frequency 00:00:00 00:00:00 Medical Center Sex Ass[birth year] At [birth year] Universit [facility] of 00:00:00 00:00:00 [facility] Smoking Status Start Date Stop Date Source Ex-smoker 2022-11-24 00:00:00 2022-11-24 [facility] [place] 00:00:00 [facility] Occasional tobacco 2022-07-30 00:00:[address] [facility] smoker Center Medications Ordered Filled Start Stop Current Ordering Indication Dosage Frequency Signature Comments Components Source Medication Medication Date Date Medication? Clinician (SIG) Name Name QUEtiapine Yes 25mg Take 1 Unive rs 25 mg 9-14 tablet by ity of tablet 15:09: mouth in [place] [address] the Medical morning Branch and 1 tablet in the evening. furosemide 2022-0 Yes 20mg Take 1 Unive rs (LASIX) 20 9-14 tablet by ity of mg tablet 15:09: mouth in [place] [address] the Medical morning. Branch QUEtiapine 2022-0 Yes 25mg Take 1 Unive rs 25 mg 9-14 tablet by ity of tablet 15:09: mouth in [place] [address] the Medical morning Branch and 1 tablet in the evening. furosemide 2022-0 Yes 20mg Take 1 Unive rs (LASIX) 20 9-14 tablet by ity of mg tablet 15:09: mouth in [place] [address] the Medical morning. Branch KCL 2022-0 Yes 20meq 20 mEq, Univers (KLOR-CON 9-14 Oral, ity of M20) tablet 14:00: DAILY, [facility] 20 mEq 00 First dose Medical on [place] Branch 11/29/22 at 0900, [facility] QUEtiapine 2022-0 Yes 25mg Take 1 Unive rs 25 mg 9-13 tablet by ity of tablet 21:49: mouth in [place] [address] the Medical morning Branch and 1 tablet in the evening. furosemide 2023-0 Yes 20mg Take 1 Unive rs (LASIX) 20 9-13 tablet by ity of mg tablet 21:49: mouth in [place] [address] the Medical morning. Branch QUEtiapine 3-0 Yes 25mg Take 1 Unive rs 25 mg 9-13 tablet by ity of tablet 21:49: mouth in [place] 46 the Medical morning Branch and 1 tablet in the evening. furosemide 2022- Yes 20mg Take 1 Unive rs (LASIX) 20 11-28 tablet by ity of mg tablet 21:49: mouth in [facility] s 46 the Medical morning. Branch albuterol 2022- No 2{puff} 2 Puff, U nivers (VENTOLIN) 11-28 Inhalation it y of inhaler 2 20:59: 21:00 , [place], 1 [place] P[place] :[place] dose, On Sat Branch 11/28/22 at 1600, Routine magnesium 2022-2022- No 4g 4 g, IV Univ ers sulfate in 11-28 Piggyback, it y of water 4 15:45: 18:49 at 25 [place] gram/50 mL 00 :00 mL/hr Medical (8 %) IV Administer Branc h Piggyback 4 over 120 g Minutes, ONCE, 1 dose, On Sat11/28/22 at 1045, Routine atorvastati 2022-2022- No 40mg Take 1 Uni vers n 40 mg 11-28 tablet by ity of tablet 10:17: 00:00 mouth at [place] 14 :00 bedtime. Medical Branch amLODIPine 2022-2022- No 10mg Take 1 Univ ers 10 mg 11-28 tablet by ity of tablet 10:12: 00:00 mouth in [place] 07 :00 the Medical morning. Branch NIFEdipine 2022-0 2022- No 60mg Take 1 Univ ers ER 60 mg 11-28 tablet by ity o f tablet 10:12: 00:00 mouth in [place] 04 :00 the Medical morning. Branch metoprolol 2022-0 2022- No 50mg Take 1 Univ ers tartrate 11-28 tablet by ity o f (LOPRESSOR) 10:12: 00:00 mouth [place] 50 mg 04 :00 the Medical tablet morning Branch and 1 tablet in the evening. amLODIPine 2022-0 Yes [id number] 2.5mg Take 1 Univers 2.5 mg - tablet by ity of tablet 00:00: mouth in [place] 00 the Medical morning. Branch metoprolol 2022-0 Yes [id number] 12.5mg Take 0.5 Univers tartrate 25 9-13 tablets by it y of mg tablet 00:00: [place] the Medical morning Branch and 0.5 tablets in the evening. atorvastati 2022-0 Yes [id number] 40mg Take 1 Univers n 40 mg 9-13 tablet by ity of tablet 00:00: mouth at [place] 00 bedtime. Medical Branch amLODIPine 2022-0 Yes [id number] 2.5mg Take 1 Univers 2.5 mg 9-13 tablet by ity of tablet 00:00: mouth in [place] 00 the Medical morning. Branch metoprolol 2022-0 Yes [id number] 12.5mg Take 0.5 Univers tartrate 25 9-13 tablets by it y of mg tablet 00:00: [place] 00 the Medical morning Branch and 0.5 tablets in the evening. atorvastati 2022-0 Yes [id number] 40mg Take 1 Univers n 40 mg 9-13 tablet by ity of tablet 00:00: mouth at [place] 00 bedtime. Medical Branch amLODIPine 2022-0 Yes [id number] 2.5mg Take 1 Univers 2.5 mg 9-13 tablet by ity of tablet 00:00: mouth in [place] 00 the Medical morning. Branch metoprolol 2022-0 Yes [id number] 12.5mg Take 0.5 Univers tartrate 25 9-13 tablets by it y of mg tablet 00:00: [place] 00 the Medical morning Branch and 0.5 tablets in the evening. atorvastati 2022-0 Yes [id number] 40mg Take 1 Univers n 40 mg 9-13 tablet by ity of tablet 00:00: mouth at [place] 00 bedtime. Medical Branch amLODIPine 2022-0 Yes [id number] 2.5mg Take 1 Univers 2.5 mg 9-13 tablet by ity of tablet 00:00: mouth in [place] 00 the Medical morning. Branch metoprolol 2022-0 Yes [id number] 12.5mg Take 0.5 Univers tartrate 25 9-13 tablets by it y of mg tablet 00:00: [place] 00 the Medical morning Branch and 0.5 tablets in the evening. atorvastati 2022-0 Yes [id number] 40mg Take 1 Univers n 40 mg 9-13 tablet by ity of tablet 00:00: mouth at [place] 00 bedtime. Medical Branch HYDROcodone 2023-0 Yes 1{tbl} 1 tablet, Univers -acetaminop 11-27 Oral, ity of hen (NORCO 21:16: Q6HPRN, [place] 5) 5-325 mg 22 Starting Medi wale tablet 1 on Tue Branch tablet 11/27/22 at 1616, Until Discontinu ed, Routine, Pain (scale 4-6) acetaminoph 2022-0 Yes 650mg 650 mg, Un yoana en 11-27 Oral, ity of (TYLENOL) 21:12: Q6HPRN, [place] tablet 650 39 Starting Medic al mg on Tue Branch 11/27/22 at 1612, Until Discontinu ed, Routine, Pain (scale 1-3) nitroglycer 2022- No [id number] .8mg 0.8 mg, Univers in 11-27 Sublingual ity of (NITROSTAT) 20:15: 19:15 , ONCE, 1 [place] sublingual 00 :00 dose, On Medic al tablet 0.8 Tue Branch mg 11/27/22 at 1515, KASSIDY iopamidol 2022- No [id number] 80mL 80 mL, U nivers (ISOVUE 11-27 [...] Branch tablet 11/26/22 at 1345, Routine metoprolol 2022-0 Yes 12.5mg 12.5 mg, U nivers tartrate 11-26 Oral, BID, ity o f (LOPRESSOR) 13:00: First dose [place] tablet 12.5 00 on Mon Medica l mg 11/26/22 at Branch 0800, Until Discontinu ed, Routine perflutren 2022- No [id number] 3mL 3 mL, IV Univers protein-A 11-25 Push, ity of microsphr 15:00: 15:00 ONCE, 1 [place] (OPTISON) 00 :00 dose, On Medica l injection 3 [place] mL 11/25/22 at 1000, Routine pantoprazol Yes 40mg 40 mg, Univ ers e 11-25 Oral, ity of (PROTONIX) 14:00: DAILY, [place] EC tablet 00 First dose Medi wale 40 mg on [facility] 11/25/22 at 0900, Until Discontinu ed, Routine clopidogreL 2022- No 75mg 75 mg, Uni vers (PLAVIX) 75 11-25 Oral, ity of mg tablet 14:00: 14:47 DAILY, [place] 75 mg 00 :08 First dose Medical on [facility] 11/25/22 at 0900, Until Discontinu ed, Routine magnesium 2022- No 4g 4 g, IV Univ ers sulfate in 11-25 Piggyback, it y of water 4 04:15: 07:19 at 25 [place] gram/50 mL 00 :00 mL/hr Medical (8 %) IV Administer Branc h Piggyback 4 over 120 g Minutes, ONCE, 1 dose, On [facility] 11/24/22 at 2315, Routine atorvastati Yes 40mg 40 mg, Univ ers n (LIPITOR) 11-25 Oral, QHS, it y of tablet 40 02:00: First dose [place] mg 00 on [facility] Medical 11/24/22 at Branch 2100, Until Discontinu ed, Routine lactated 2022-2022- No 500mL at 999 Unive rs ringers IV 11-2411 mL/hr, 500 it y of infusion 23:00: 12:43 mL, [place] 500 mL 00 :00 Intravenou Medical s, ONCE, 1 Branch dose, On [facility] 11/24/22 at 1800, Routine lactated [...] Wheezing lactated 2022- No 500[facility] 11-24 mL/hr, 500 it [...] Rang e, Dosing and Testing: &nbs p;FOR [facility], [facility] ONLY &nbs p; - aPTT < 35: [...] BOLUS OR INITIAL INFUSION RATE.
amLODIPine 2023- No 10mg QD Take [address] [facility] (NORVASC) 11-14 tablet (10 [place] 10 MG 00:00: 23:59 mg total) Medica l tablet 00 :00 by mouth Center daily. amLODIPine 2023- No 10mg QD Take [address] [facility] (NORVASC) 11-14 tablet (10 [place] 10 MG 00:00: 23:59 mg total) Medica l tablet 00 :00 by mouth Center daily. amLODIPine 2023- No 10mg QD Take [address] [facility] (NORVASC) 11-14 tablet (10 [place] 10 MG 00:00: 23:59 mg total) Medica l tablet 00 :00 by mouth Center daily. amLODIPine 2023- No 10mg QD Take [address] [facility] [facility] (NORVASC) 11-14 tablet (10 [place] 10 MG 00:00: 23:59 mg total) Medica l tablet 00 :00 by mouth Center daily. amLODIPine 2023- No 10mg QD Take [address] [facility] [facility] (NORVASC) 11-14 tablet (10 [place] es 10 MG 00:00: 23:59 mg total) Medica l tablet 00 :00 by mouth Center daily. thiamine 2022-3- No 100mg QD Take 1 [facility] 100 MG 11-14 tablet [facility] tablet 00:00: 23:59 (100 mg Medical 00 :00 total) by Center mouth daily for 30 days. thiamine 2022-0 2022- No 100mg QD Take 1 [facility] t 100 MG 11-14 tablet [facility] tablet 00:00: 23:59 (100 mg Medical 00 :00 total) by Center mouth daily for 30 days. thiamine 2022-0 2022- No 100mg QD Take 1 [facility] t 100 MG 11-14 tablet [facility] tablet 00:00: 23:59 (100 mg Medical 00 :00 total) by Center mouth daily for 30 days. thiamine 2022-0 2022- No 100mg QD Take 1 [facility] t 100 MG 11-14 tablet [facility] tablet 00:00: 23:59 (100 mg Medical 00 :00 total) by Center mouth daily for 30 days. thiamine 2022-0 2022- No 100mg QD Take 1 [facility] t 100 MG 11-14 tablet [facility] tablet 00:00: 23:59 (100 mg Medical 00 :00 total) by Center mouth daily for 30 days. atorvastati 2022-0 2023- No 40mg QD Take [address] [facility] n (LIPITOR) 11-13 tablet (40 L ukes 40 MG 00:00: 23:59 mg total) Medica l tablet 00 :00 by mouth Center nightly. atorvastati 2022-0 4- No 40mg QD Take [address] [facility] [address] n (LIPITOR) 11-13 tablet (40 L ukes 40 MG 00:00: 23:59 mg total) Medica l tablet 00 :00 by mouth Center nightly. atorvastati 2022-0 2023- No 40mg QD Take [address] [facility] n (LIPITOR) 11-13 tablet (40 L ukes 40 MG 00:00: 23:59 mg total) Medica l tablet 00 :00 by mouth Center nightly. atorvastati 2022-0 4- No 40mg QD Take [address] [facility] [address] n (LIPITOR) 11-13 tablet (40 L ukes 40 MG 00:00: 23:59 mg total) Medica l tablet 00 :00 by mouth Center nightly. atorvastati 2022-0 2023- No 40mg QD Take [address] [facility] n (LIPITOR) 11-13 tablet (40 L ukes 40 MG 00:00: 23:59 mg total) Medica l tablet 00 :00 by mouth Center nightly. QUEtiapine 2022-0 3- No 25mg Q.5D Take [address] [facility] [...] times daily for 30 days. QUEtiapine 2022-0 3- No 25mg Q.5D Take [address] [facility] (SEROquel) 11-13 tablet (25 [place] k[place] 25 MG 00:00: 23:59 mg total) Medica l tablet 00 :00 by mouth 2 Center (two) times daily for 30 days. QUEtiapine 2022-0 3- No 25mg Q.5D Take [address] (SEROquel) 11-13 tablet (25 [place] k[place] 25 MG 00:00: 23:59 mg total) Medica l tablet 00 :00 by mouth 2 Center (two) times daily for 30 days. QUEtiapine 2022-0 3- No 25mg Q.5D Take [address] [facility] (SEROquel) 11-13 tablet (25 I[facility] k[place] 25 MG 00:00: 23:59 mg total) Medica l tablet 00 :00 by mouth 2 Center (two) times daily for 30 days. furosemide 2023-0 Yes 20mg QD Take 1 [facility] (LASIX) 20 -28 tablet (20 [place] MG tablet 00:00: mg total) Med ical 00 by mouth Center in the morning. furosemide 2022-2022- No 20mg QD Take [address] [facility] [...] QD Take [address] [facility] (LASIX) 20 08-12- tablet (20 Iq[place] kes MG tablet 00:00: 00:00 mg total) Me dical 00 :00 by mouth Center in the morning. furosemide 2022- No 20mg QD Take [address] [facility] (LASIX) 20 08-12- tablet (20 Iq[place] kes MG tablet 00:00: 00:00 mg total) Me dical 00 :00 by mouth Center in the morning. furosemide 2022- No 20mg QD Take [address] [facility] (LASIX) 20 08-12- tablet (20 [place] k[place] MG tablet 00:00: 00:00 mg total) Me dical 00 :00 by mouth Center in the morning. NIFEdipine 0 Yes 60mg QD Take 1 [facility] [...] tablet (50 mg total) before bedtime. atorvastati 0 2023- No 40mg QD Take [address] n (LIPITOR) 5-27 05-26 tablet (40 L ukes 40 MG 00:00: 23:59 mg total) Medica l tablet 00 :00 by mouth Center nightly. atorvastati 2022-0 2023- No 40mg QD Take [address] [facility] n (LIPITOR) 08-11-29 tablet (40 L ukes 40 MG 00:00: 00:00 mg total) Medica l tablet 00 :00 by mouth Center nightly. NIFEdipine 3-0 2023- No 60mg QD Take [address] [facility] (PROCARDIA- 08-11-29 tablet (60 L ukes XL) 60 MG 00:00: 00:00 mg total) Me dical (OSM) 24 hr 00 :00 by mouth Cent er tablet in the morning. metoprolol 2022-0 2023- No 50mg Q.5D Take 1 [facility] [...] er tablet in the morning. metoprolol 2022-0 2023- No 50mg Q.5D Take 1 [facility] [...] 00 :00 by mouth Center nightly. NIFEdipine 3-0 2023- No 60mg QD Take [address] [facility] (PROCARDIA- -27 08-29 tablet (60 L ukes XL) 60 MG 00:00: 00:00 mg total) Me dical (OSM) 24 hr 00 :00 by mouth Cent er tablet in the morning. metoprolol 2023-0 2023- No 50mg Q.5D Take [address] tartrate 5-27 -29 tablet (50 Luke s (LOPRESSOR) 00:00: 00:00 [...] Q.5D Take [address] tartrate 5-27 -29 tablet (50 Luke s (LOPRESSOR) 00:00: 00:00 mg total) Medical 50 MG 00 :00 by mouth Center tablet in the morning and 1 tablet (50 mg total) before bedtime. atorvastati 2023-0 2023- No 40mg QD Take [address] [facility] n (LIPITOR) - 08-29 tablet (40 L ukes 40 MG [...] 60mg QD Take [address] [facility] (PROCARDIA- 5-04 08- tablet (60 L ukes XL) 60 [...] mouth Center nightly. metroNIDAZO 2022- No 500mg Q.[id number] Take [address] LE (FLAGYL) 08-03 [id number] tablet [facility] 500 MG 00:00: 00:00 3D (500 mg Medical tablet 00 :00 total) by Center mouth in the morning and 1 tablet (500 mg total) at noon and 1 tablet (500 mg total) in the evening. . atorvastati 3-0 2023- No 40mg QD Take [address] n (LIPITOR) 08-03- tablet (40 L ukes 40 MG 00:00: 00:00 mg total) Medica l tablet 00 :00 by mouth Center nightly. metroNIDAZO 3-0 2023- No 500mg Q.[id number] Take [address] [facility] (FLAGYL) 08-03 [id number] tablet [facility] 500 MG 00:00: 00:00 3D (500 mg Medical tablet 00 :00 total) by Center mouth in the morning and 1 tablet (500 mg total) at noon and 1 tablet (500 mg total) in the evening. . atorvastati 3-0 2023- No 40mg QD Take [address] n (LIPITOR) 08-03 tablet (40 L ukes 40 MG 00:00: 00:00 mg total) Medica l tablet 00 :00 by mouth Center nightly. metroNIDAZO 3-0 2023- No 500mg Q.[id number] Take [address] [facility] (FLAGYL) 08-03 [id number] tablet [facility] 500 MG 00:00: 00:00 3D (500 mg Medical tablet 00 :00 total) by Center mouth in the morning and 1 tablet (500 mg total) at noon and 1 tablet (500 mg total) in the evening. . atorvastati 3-0 3- No 40mg QD Take [address] n (LIPITOR) 08-03 tablet (40 L ukes 40 MG 00:00: 00:00 mg total) Medica l tablet 00 :00 by mouth Center nightly. metroNIDAZO 3-0 2023- No 500mg Q.[id number] Take [address] [facility] (FLAGYL) 08-03 [id number] tablet [facility] 500 MG 00:00: 00:00 3D (500 mg Medical tablet 00 :00 total) by Center mouth in the morning and 1 tablet (500 mg total) at noon and 1 tablet (500 mg total) in the evening. . atorvastati 3-0 2023- No 40mg QD Take [address] n (LIPITOR) 08-0327 tablet (40 L ukes 40 MG 00:00: 00:00 mg total) Medica l tablet 00 :00 by mouth Center nightly. metroNIDAZO 3-0 2023- No 500mg Q.[id number] Take [address] [facility] (FLAGYL) 08-03 [id number] tablet [facility] 500 MG 00:00: 00:00 3D (500 mg Medical tablet 00 :00 total) by Center mouth in the morning and 1 tablet (500 mg total) at noon and 1 tablet (500 mg total) in the evening. . atorvastati 3-0 202- No 40mg QD Take [address] n (LIPITOR) 08-03 tablet (40 L ukes 40 MG 00:00: 00:00 mg total) Medica l tablet 00 :00 by mouth Center nightly. metroNIDAZO 2022-0 2023- No 500mg Q.[id number] Take [address] [facility] (FLAGYL) 08-03 [id number] tablet [facility] 500 MG 00:00: 00:00 3D (500 mg Medical tablet 00 :00 total) by Center mouth in the morning and 1 tablet (500 mg total) at noon and 1 tablet (500 mg total) in the evening. . doxycycline 3-0 2023- No 100mg Q.5D [...] mouth Medica l tablet 09 :00 daily. [place] divalproex 2022- No epilepsy 125mg QD Take [address] (DEPAKOTE) 5-15 05-15 mg by [facility] 125 MG EC 14:52: 00:00 mouth Medica l tablet 09 :00 daily. [place] divalproex 2022- No epilepsy 125mg QD Take [address] (DEPAKOTE) 5-15 05-15 mg by [facility] 125 MG EC 14:52: 00:00 mouth Medica l tablet 09 :00 daily. [place] divalproex 2022- No epilepsy 125mg QD Take [address] (DEPAKOTE) 5-15 05-15 mg by [facility] 125 MG EC 14:52: 00:00 mouth Medica l tablet 09 :00 daily. [place] divalproex 2022- No epilepsy 125mg QD Take [address] (DEPAKOTE) 5-15 05-15 mg by [facility] 125 MG EC 14:52: 00:00 mouth Medica l tablet 09 :00 daily. [place] divalproex 2022- No epilepsy 125mg QD Take [address] (DEPAKOTE) 5-15 05-15 mg by [facility] 125 MG EC 14:52: 00:00 mouth Medica l tablet 09 :00 daily. [place] divalproex 2018-03 Yes epilepsy 125mg QD Take [address] (DEPAKOTE) 2-04 mg by [facility] 125 MG EC 10:36: mouth Medical tablet 04 daily. [place] divalproex 2018-03 Yes epilepsy 125mg QD Take [address] (DEPAKOTE) 2-04 mg by [facility] 125 MG EC 10:36: mouth Medical tablet 04 daily. [place] divalproex 2018-03 Yes epilepsy 125mg QD Take [address] (DEPAKOTE) 2-04 mg by [facility] 125 MG EC 10:36: mouth Medical tablet 04 daily. [place] famotidine 2018-03 Yes 1{tbl} Take 1 [facility] [...] Take [address] (PEPCID) 20 -30 05-15 tablet by Iqra kes MG tablet [...] Source Respiratory rate 2022-11-29 01:59:00 18 /min [facility] Oxygen saturation in 2022-11-29 01:59:00 93 /min [facility] Arterial blood by [facility] Pulse oximetry Branch Systolic blood 2022-11-29 01:23:00 126 mm[facility]Hg[facility] Diastolic blood 2022-11-29 01:23:00 75 mm[Hg] [facility] Heart rate 2022-11-29 01:23:00 72 /min [facility] Body temperature 2022-11-29 01:23:00 36.94 Nahomi [facility] Body weight 2022-11-28 05:16:00 70.421 kg [facility] BMI 2022-11-28 05:16:00 28.40 kg/m2 [facility] Body height 2022-11-24 16:52:00 157.5 cm [facility] WEIGHT 2022-11-12 07:05:00 74.6 kg WEIGHT [...] cm Heart rate 2022-11-13 20:42:00 75 /min [facility] Respiratory rate 2022-11-13 20:42:00 18 /min [facility] Oxygen saturation in 2022-11-13 20:42:00 98 /min [facility] Arterial blood by Medical Ce nter Pulse oximetry Systolic blood 2022-11-13 16:00:00 124 mm[Hg] [facility] Diastolic blood 2022-11-13 16:00:00 74 mm[Hg] [facility] Body temperature 2022-11-13 16:00:00 36.44 Nahomi [facility] Body weight 2022-11-12 07:05:00 74.6 kg [facility] BMI 2022-11-12 07:05:00 30.08 kg/m2 [facility] Heart rate 2022-08-11 12:33:33 76 /min [facility] Respiratory rate 2022-08-11 12:33:33 18 /min [facility] Oxygen saturation in 2022-08-11 12:33:33 97 /min [facility] Arterial blood by Medical Ce nter Pulse oximetry Body temperature 2022-08-11 12:33:11 36.56 Nahomi [facility] Systolic blood 2022-08-11 12:32:45 129 mm[Hg] [facility] Diastolic blood 2022-08-11 12:32:45 80 mm[Hg] [facility] Body height 2022-08-05 19:35:00 157.5 cm [facility] Body weight 2022-08-05 19:35:00 58.968 kg [facility] BMI 2022-08-05 19:35:00 23.78 kg/m2 [facility] Procedures Procedure Date / Time Performing Clinician Source Performed REFERRAL- 2023-01-24 06:01:00 [facility]RESPONSE Name Medical Branch MAGNESIUM 2022-11-28 09:22:00 Casi [facility] BASIC METABOLIC PANEL 2022-11-28 09:22:00 TanCasi carter [facility] (NA, K, CL, CO2, Medical Branch GLUCOSE, BUN, CREATININE, CA) CBC WITH DIFF 2022-11-28 09:22:00 Casi [facility] CT ANGIOGRAPHY 2022-11-27 19:24:21 Tori Hanna [facility] CORONARIES WITH CARDIAC [facility] CALCIUM SCORE CT HEAD WO CONTRAST 2022-11-27 17:24:05 Milagros Choe [facility] CBC WITHOUT DIFF 2022-11-27 09:15:00 Lazaro [facility] MAGNESIUM 2022-11-26 09:21:00 [facility] 2022-11-26 09:21:00 Lazaro [facility] ([id number]) (ALB,T.PRO,BILI Medical Branch T,BU/BC,ALT,AST,ALK PHOS) BASIC METABOLIC PANEL 2022-11-26 09:21:00 [facility] (NA, K, CL, CO2, Medical Branch GLUCOSE, BUN, CREATININE, CA) CBC WITH DIFF 2022-11-26 09:21:00 [facility] ACTIVATED PARTIAL 2022-11-25 22:48:00 Lazaro [facility] THRMPLAS JOHAN [facility] EKG-12 LEAD 2022-11-25 17:52:00 Issa [facility] Zackary Medical Branch TROPONIN I 2022-11-25 17:51:00 Philip Chris [facility] ECG ROUTINE & RHYTHM 2022-11-25 17:39:36 Joel Willis [facility] Branch ACTIVATED PARTIAL 2022-11-25 15:42:00 Joel Willis [facility] TRANSTHORACIC ECHO (TTE) 2022-11-25 14:57:34 Joel Willis [facility] COMPLETE W/ CONTRAST Medical Bra nch MAGNESIUM 2022-11-25 09:20:00 Joel Willis [facility] BASIC METABOLIC PANEL 2022-11-25 09:20:00 [facility] (NA, K, CL, CO2, Medical Branch GLUCOSE, BUN, CREATININE, CA) URINE DRUG (IMMUNOASSAY) 2022-11-25 07:32:00 Joel Willis [facility] - COMPREHENSIVE DRUG Medical [facility] SCREEN GC & CHLAMYDIA AMPLIFIED 2022-11-25 07:32:00 Joel Willis [facility] ASSAY [facility] URINE DRUG (LCMSMS) - 2022-11-25 07:32:00 [facility] SYNTHETIC OPIATES PANEL Medical Branch CBC WITHOUT DIFF 2022-11-25 07:31:00 Joel Willis [facility] ACTIVATED PARTIAL 2022-11-25 07:31:00 Joel Willis [facility] URINALYSIS 2022-11-25 07:31:00 Lazaro [facility] MAGNESIUM 2022-11-25 01:31:00 Bruno [facility] BASIC METABOLIC PANEL 2022-11-25 01:31:00 Bruno [facility] (NA, K, CL, CO2, Medical Branch GLUCOSE, BUN, CREATININE, CA) ACTIVATED PARTIAL 2022-11-25 01:31:00 Joel Willis [facility] TROPONIN I 2022-11-24 23:01:00 Joel Willis [facility] BLOOD CULTURE SCREEN 2022-11-24 22:57:00 Joel [facility] XR CHEST 1 VW 2022-11-24 21:30:59 Lazaro [facility] US ABDOMEN LIMITED 2022-11-24 21:30:31 Joel Willis [facility] XR CHEST 1 VW 2022-11-24 20:37:00 Lazaro [facility] CT HEAD WO CONTRAST 2022-11-24 18:42:54 Lazaro [facility] ACTIVATED PARTIAL 2022-11-24 17:43:00 Lazaro [facility] THRMPLAS JOHAN [facility] CBC WITH DIFF 2022-11-24 16:39:00 Lazaro [facility] MRSA / MSSA SCREEN BY 2022-11-24 16:39:00 [facility], [facility] TROPONIN I 2022-11-24 16:34:00 Lazaro [facility] THYROID STIMULATING 2022-11-24 16:34:00 [facility] Branch HEPATIC FUNCTION PANEL 2022-11-24 16:34:00 Lazaro [facility] ([id number]) (ALB,T.PRO,BILI Medical Branch T,BU/BC,ALT,AST,ALK PHOS) BASIC METABOLIC PANEL 2022-11-24 16:34:00 [facility] (NA, K, CL, CO2, Medical Branch GLUCOSE, BUN, CREATININE, CA) LIPID PANEL 2022-11-24 16:34:[address] [facility] ([id number])(TOTAL Medical Branch CHOLESTEROL, TRIGLYCERIDES, HDL) GLYCOSYLATED HEMOGLOBIN 2022-11-24 16:34:00 [facility] ([facility] PROTHROMBIN TIME / INR 2022-11-24 16:34:00 [facility] HEPATITIS B SURFACE 2022-11-24 16:34:00 Lazaro [facility] ANTIBODY [facility] HEPATITIS B SURFACE 2022-11-24 16:34:00 Lazaro [facility] ANTIGEN [facility] HCV ANTIBODY 2022-11-24 16:34:00 [facility] A VIRUS 2022-11-24 16:34:00 WillisGolisano [facility] ANTIBODY IGM Medical Branch N-TERMINAL PRO-BNP 2022-11-24 16:34:00 Joel Willis [facility] HIV 1/2 AG-AB WITH 2022-11-24 16:34:00 Joel Willis [facility] REFLEX [facility] Branch EKG-12 LEAD 2022-11-24 16:22:20 Issa [facility] POCT-GLUCOSE METER 2022-11-13 12:03:00 Chelseat [facility] PHOSPHORUS 2022-11-13 04:55:00 Merchant, [facility] MAGNESIUM 2022-11-13 04:55:00 Kaylahant, [facility] CBC W/PLT COUNT & AUTO 2022-11-13 04:55:00 Kaylahant, [facility] CBC W/PLT COUNT & AUTO 2022-11-13 04:55:00 Chelseat [facility] POCT-GLUCOSE METER 2022-11-12 21:27:00 Merchant, [facility] POCT-GLUCOSE METER 2022-11-12 18:07:00 Merchant, [facility] POCT-GLUCOSE METER 2022-11-12 13:01:00 Merchant, [facility] POCT-GLUCOSE METER 2022-11-12 06:34:00 Merchant [facility] BASIC METABOLIC PANEL 2022-11-12 04:44:00 Merchant, [facility] PHOSPHORUS 2022-11-12 04:44:00 Merchant, [facility] MAGNESIUM 2022-11-12 04:44:00 Merchant, [facility] CBC W/PLT COUNT & AUTO 2022-11-12 04:44:00 Merchant, [facility] CBC W/PLT COUNT & AUTO 2022-11-12 04:44:00 Merchant [facility] POCT-GLUCOSE METER 2022-11-11 23:33:00 Merchant [facility] POCT-GLUCOSE METER 2022-11-11 17:24:00 Merchant, [facility] POCT-GLUCOSE METER 2022-11-11 12:50:00 Merchant, [facility] POCT-GLUCOSE METER 2022-11-11 07:10:00 Merchant, [facility] BASIC METABOLIC PANEL 2022-11-11 04:41:00 Merchant, [facility] PHOSPHORUS 2022-11-11 04:41:00 Merchant, [facility] MAGNESIUM 2022-11-11 04:41:00 Kaylahant, [facility] CBC W/PLT COUNT & AUTO 2022-11-11 04:41:00 Kaylahant, [facility] CBC W/PLT COUNT & AUTO 2022-11-11 04:41:00 Kaylahant, [facility] POCT-GLUCOSE METER 2022-11-11 00:15:00 Merchant, [facility] POCT-GLUCOSE METER 2022-11-10 17:10:00 Merchant, [facility] POCT-GLUCOSE METER 2022-11-10 16:56:00 Merchant, [facility] POCT-GLUCOSE METER 2022-11-10 12:12:00 Merchant, [facility] POCT-GLUCOSE METER 2022-11-10 06:57:00 Merchant, [facility] BASIC METABOLIC PANEL 2022-11-10 04:59:00 Merchant, [facility] PHOSPHORUS 2022-11-10 04:59:00 Merchant, [facility] MAGNESIUM 2022-11-10 04:59:00 Merchant, [facility] CBC W/PLT COUNT & AUTO 2022-11-10 04:59:00 Merchant, [facility] CBC W/PLT COUNT & AUTO 2022-11-10 04:59:00 Merchant [facility] POCT-GLUCOSE METER 2022-11-09 23:21:00 Kaylahant, [facility] POCT-GLUCOSE METER 2022-11-09 17:12:00 Merchant, [facility] POCT-GLUCOSE METER 2022-11-09 12:09:00 Merchant, [facility] VANCOMYCIN LEVEL, TROUGH 2022-11-09 09:28:00 ChaddClyde kerns [facility] POCT-GLUCOSE METER 2022-11-09 05:53:00 Merchant, [facility] BASIC METABOLIC PANEL 2022-11-09 03:49:00 Juan J [facility] PHOSPHORUS 2022-11-09 03:49:00 Ali [facility] MAGNESIUM 2022-11-09 03:49:00 Juan J [facility] CBC W/PLT COUNT & AUTO 2022-11-09 03:49:00 Juan J [facility] CBC W/PLT COUNT & AUTO 2022-11-09 03:49:00 Juan J [facility] POCT-GLUCOSE METER 2022-11-08 23:58:00 Merchant, [facility] BASIC METABOLIC PANEL 2022-11-08 18:20:00 [facility] POCT-GLUCOSE METER 2022-11-08 17:17:00 Merchant, [facility] POCT-GLUCOSE METER 2022-11-08 12:24:00 Merchant, [facility] POCT-GLUCOSE METER 2022-11-08 05:58:[address] [facility] BASIC METABOLIC PANEL 2022-11-08 04:09:00 Ali [facility] PHOSPHORUS 2022-11-08 04:09:00 Mir Arita [facility] MAGNESIUM 2022-11-08 04:09:00 [facility] SalterConstantino [facility] CBC W/PLT COUNT & AUTO 2022-11-08 04:09:00 [facility] Constantino [facility] CBC W/PLT COUNT & AUTO 2022-11-08 04:09:00 [facility] XR ABDOMEN/KUB 1 VIEW 2022-11-07 21:11:00 Mir Arita [facility] BASIC METABOLIC PANEL 2022-11-07 17:58:00 [facility] BLOOD CULTURE 2022-11-07 10:27:00 Tiffanie Noel [facility] POCT-GLUCOSE METER 2022-11-07 06:01:00 Amanda Head [facility] HIGH SENSITIVITY 2022-11-07 03:17:00 Tiffanie Noel [facility] TROPONIN I [place] BASIC METABOLIC PANEL 2022-11-07 03:17:00 Agustin Erick [facility] Keanu [place] PHOSPHORUS 2022-11-07 03:17:00 Agustin Erick, [facility] Ignacio [place] MAGNESIUM 2022-11-07 03:17:00 [facility] [place] CBC W/PLT COUNT & AUTO 2022-11-07 03:17:00 [facility]in [facility] [place] CBC W/PLT COUNT & AUTO 2022-11-07 03:17:00 Saeid Camp [facility] POCT-GLUCOSE METER 2022-11-07 00:13:00 Ra Sonidohul [facility] HIGH SENSITIVITY 2022-11-06 21:18:00 Tiffanie Noel Ruthie [facility] TROPONIN I Center BLOOD CULTURE 2022-11-06 14:48:00 Tesha Valladares [facility]IN[facility] W/ REFLEX 2022-11-06 14:48:00 Jose Kirk [facility] URINE CULTURE [facility] PT/APTT 2022-11-06 14:47:00 Jose Kirk [facility] HIGH SENSITIVITY 2022-11-06 14:47:00 Tiffanie Noel [facility] TROPONIN I [place] BLOOD GAS, ARTERIAL 2022-11-06 14:46:00 Jose Kirk [facility] XR CHEST 1 VIEW PORTABLE 2022-11-06 12:18:35 [facility]ensia [facility] BLOOD CULTURE 2022-11-06 10:38:00 Tesha Valladares [facility] LACTIC ACID, VENOUS 2022-11-06 10:38:00 Jose Kirk [facility] PROCALCITONIN 2022-11-06 10:38:00 [facility] HIGH SENSITIVITY 2022-11-06 10:38:[address] [facility] TROPONIN I [facility] POCT-BLOOD GASES, 2022-11-06 10:38:00 [facility] POCT-SODIUM 2022-11-06 10:38:00 [facility] POCT-POTASSIUM 2022-11-06 10:38:00 ElviaResnick [facility] POCT-HEMOGLOBIN 2022-11-06 10:38:00 ElviaResnick [facility] POCT-HEMATOCRIT 2022-11-06 10:38:00 ElviaResnick [facility] POCT-GLUCOSE 2022-11-06 10:38:00 ElviaResnick [facility] ECG 12-LEAD 2022-11-06 10:26:42 Unknown, Hl7 [facility] ECG 12-LEAD 2022-11-06 10:24:58 Unknown, Hl7 [facility] ECG 12-LEAD 2022-11-06 10:23:56 Unknown, Hl7 [facility] ECG 12-LEAD 2022-11-06 10:23:56 Unknown, Hl7 Doctor [facility] POCT-GLUCOSE METER 2022-11-06 10:09:00 Elvia [facility] CT BRAIN WITHOUT IV 2022-11-06 08:46:36 Jhony Curtis [facility] POCT-GLUCOSE METER 2022-11-06 05:34:00 Elvia [facility] BASIC METABOLIC PANEL 2022-11-06 04:38:00 [facility] [place] PHOSPHORUS 2022-11-06 04:38:00 [facility]ES[facility]UM 2022-11-06 04:38:00 [facility] CBC W/PLT COUNT & AUTO 2022-11-06 04:38:00 [facility] W/PLT COUNT & AUTO 2022-11-06 04:38:00 ShonnigelvalenciaHumphreyshan Mckennadip [facility] POCT-GLUCOSE METER 2022-11-05 23:23:00 Elvia [facility] POCT-GLUCOSE METER 2022-11-05 17:17:00 Elvia [facility] XR ABDOMEN/KUB 1 VIEW 2022-11-05 14:12:00 Elvia [facility] POCT-GLUCOSE METER 2022-11-05 12:42:00 Elvia [facility] POCT-GLUCOSE METER 2022-11-05 06:14:00 Elvia [facility] BASIC METABOLIC PANEL 2022-11-05 03:34:00 Agustin Erick [facility] PHOSPHORUS 2022-11-05 03:34:00 [facility]sutin [facility] [place] [facility]UM 2022-11-05 03:34:00 [facility] CBC W/PLT COUNT & AUTO 2022-11-05 03:34:00 Agustin Erick, [facility] Ignacio [place] CBC W/PLT COUNT & AUTO 2022-11-05 03:34:00 Saeid Camp [facility] POCT-GLUCOSE METER 2022-11-04 23:14:00 Elvia [facility] SODIUM 2022-11-04 18:28:00 KanSaeid [facility] POCT-GLUCOSE METER 2022-11-04 16:53:00 Elvia [facility] POCT-GLUCOSE METER 2022-11-04 12:30:00 Elvia [facility] SODIUM 2022-11-04 12:17:00 KanSaeid sandersdip [facility] POCT-GLUCOSE METER 2022-11-04 05:41:00 Elvia [facility] BASIC METABOLIC PANEL 2022-11-04 04:12:00 Agustin Erick, [facility] Ignacio [place] PHOSPHORUS 2022-11-04 04:12:00 Agustin Erick, [facility] Ignacio [place] MAGNESIUM 2022-11-04 04:12:00 [facility]in [facility], [facility] [place] CBC W/PLT COUNT & AUTO 2022-11-04 04:12:00 Agustin Erick, [facility] CBC W/PLT COUNT & AUTO 2022-11-04 04:12:00 KanSaeid sandersdip [facility] POCT-GLUCOSE METER 2022-11-04 00:14:00 Elvia [facility] SODIUM 2022-11-03 18:20:00 Kanakivalencia, Saeid Manuel [facility] POCT-GLUCOSE METER 2022-11-03 16:39:00 Elvia [facility] SODIUM 2022-11-03 12:06:00 KanakiaSaeid Manuel [facility] POCT-GLUCOSE METER 2022-11-03 11:53:00 Evlia [facility] XR ABDOMEN/KUB 1 VIEW 2022-11-03 11:27:11 Tai [facility] POCT-GLUCOSE METER 2022-11-03 05:39:00 Tai [facility] BASIC METABOLIC PANEL 2022-11-03 05:04:00 Agustin Erick, [facility] Ignacio [place] PHOSPHORUS 2022-11-03 05:04:00 [facility]ustin [facility], [facility] [place] MAGNESIUM 2022-11-03 05:04:00 [facility] CBC W/PLT COUNT & AUTO 2022-11-03 05:04:00 [facility] CBC W/PLT COUNT & AUTO 2022-11-03 05:04:00 Saeid Camp [facility] POCT-GLUCOSE METER 2022-11-02 23:23:00 Elvia [facility] SODIUM 2022-11-02 18:10:00 Saeid Camp [facility] POCT-GLUCOSE METER 2022-11-02 17:45:00 Elvia [facility] POCT-GLUCOSE METER 2022-11-02 12:55:00 Elvia [facility] SODIUM 2022-11-02 12:29:00 Saeid Camp [facility] CT BRAIN WITHOUT IV 2022-11-02 11:03:00 Elvia [facility] POCT-GLUCOSE METER 2022-11-02 06:10:00 Bessy Shah [facility] SODIUM 2022-11-02 05:19:00 Saeid Camp Manuel [facility] BASIC METABOLIC PANEL 2022-11-02 05:19:00 Agustin Erick, [facility] Ignacio [place] PHOSPHORUS 2022-11-02 05:19:00 [facility] Ign[facility] [place] MAGNESIUM 2022-11-02 05:19:00 [facility]dwell[facility] [place] CBC W/PLT COUNT & AUTO 2022-11-02 05:19:00 [facility] CBC W/PLT COUNT & AUTO 2022-11-02 05:19:00 Saeid Camp [facility] POCT-GLUCOSE METER 2022-11-02 00:07:00 [facility] SODIUM 2022-11-01 18:31:00 Conrado Saeid [facility] POCT-GLUCOSE METER 2022-11-01 18:27:00 Alyssa [facility] 2D ECHO W/ DOPPLER 2022-11-01 15:27:00 Conrado Saeid [facility] (CW/PW/COLOR) [place] SODIUM 2022-11-01 13:53:00 Conrado Saeid [facility] VANCOMYCIN LEVEL, TROUGH 2022-11-01 08:58:00 Yaima Mccracken [facility] MAGNESIUM 2022-11-01 08:58:00 Karan [facility] POTASSIUM 2022-11-01 08:58:00 Karan [facility] BASIC METABOLIC PANEL 2022-11-01 03:10:00 [facility] Ign[facility] [place] PHOSPHORUS 2022-11-01 03:10:00 [facility] [place] MAGNESIUM 2022-11-01 03:10:00 [facility] [place] CBC W/PLT COUNT & AUTO 2022-11-01 03:10:00 [facility] CBC W/PLT COUNT & AUTO 2022-11-01 03:10:00 Saeid Camp [facility] SODIUM 2022-10-31 23:53:00 Saeid Camp [facility] SODIUM 2022-10-31 17:42:00 Conrado [facility] BLOOD CULTURE 2022-10-31 15:54:00 [facility] SARS-COV2/INFLUENZA/RSV 2022-10-31 11:52:00 [facility] SODIUM 2022-10-31 11:52:00 Saeid Camp [facility] MAGNESIUM 2022-10-31 11:52:00 Nehemias Russo [facility] POCT-GLUCOSE METER 2022-10-31 11:49:00 Kathy Zepeda [facility] B-TYPE NATRIURETIC 2022-10-31 09:42:00 Conrado [facility] (BNP) Center MRSA SCREEN 2022-10-31 08:30:00 Clyde Florentino [facility] BASIC METABOLIC PANEL 2022-10-31 04:01:00 [facility]in [facility] Keanu [place] PHOSPHORUS 2022-10-31 04:01:00 [facility] MAGNESIUM 2022-10-31 04:01:00 [facility] CBC W/PLT COUNT & AUTO 2022-10-31 04:01:00 [facility]in [facility] DIFFERENTIAL [facility] CBC W/PLT COUNT & AUTO 2022-10-31 04:01:00 [facility] VENOUS DOPPLER LEGS 2022-10-31 03:37:28 Sreekanth Guevara [facility] VENOUS DOPPLER ARMS 2022-10-31 03:31:47 Sreekanth Guevara [facility] HIGH SENSITIVITY 2022-10-30 22:19:00 [facility]IN [facility] SODIUM 2022-10-30 22:19:00 Shonakivalencia, Saeid [facility] ECG 12-LEAD 2022-10-30 17:27:26 Unknown, Hl7 Doctor [facility] ECG 12-LEAD 2022-10-30 17:26:59 Sreekanth Guevara [facility] ECG 12-LEAD 2022-10-30 17:26:59 Unknown, Hl7 Doctor [facility] XR ABDOMEN/KUB 1 VIEW 2022-10-30 17:09:00 Kanakia, [facility] PORTABLE Center LACTIC ACID, ARTERIAL 2022-10-30 16:48:00 Donnie Gonzalez [facility] HIGH SENSITIVITY 2022-10-30 16:48:00 Agustin Suarez [facility] TROPONIN I [facility] SODIUM 2022-10-30 16:48:00 Kanaki, [facility] BLOOD GAS, ARTERIAL 2022-10-30 14:41:00 [facility] BLOOD GAS, ARTERIAL 2022-10-30 12:13:00 Nehemias Russo [facility] SODIUM 2022-10-30 12:12:00 Kanakia, [facility] LACTIC ACID, ARTERIAL 2022-10-30 12:12:00 Donnie Gonzalez [facility] XR CHEST 1 VIEW PORTABLE 2022-10-30 10:28:00 Kelly Medellin [facility] / BEDSIDE [facility] PROCALCITONIN 2022-10-30 10:14:00 Donnie Gonzalez [facility] HIGH SENSITIVITY 2022-10-30 10:14:00 Sreekanth Guevar[facility] TROPONIN I Center ECG 12-LEAD 2022-10-30 10:02:46 Unknown, Hl7 Doctor [facility] ECG 12-LEAD 2022-10-30 10:02:15 Agustinjackie Suarez [facility] ECG 12-LEAD 2022-10-30 10:02:15 Unknown, Hl7 Doctor [facility] CT BRAIN WITHOUT IV 2022-10-30 06:24:45 Agustin Erick [facility] BASIC METABOLIC PANEL 2022-10-30 03:19:00 Agustin Erick [facility] PHOSPHORUS 2022-10-30 03:19:00 Agustin Erick [facility] MAGNESIUM 2022-10-30 03:19:00 Agustin Erick, [facility] CBC W/PLT COUNT & AUTO 2022-10-30 03:19:00 [facility] CBC W/PLT COUNT & AUTO 2022-10-30 03:19:00 Saeid Camp Manuel [facility] Center SODIUM 2022-10-29 23:11:00 Saeid Capm Manuel [facility] XR ABDOMEN/KUB 1 VIEW 2022-10-29 18:16:00 Sreekanth Guevara [facility] PORTABLE Center SODIUM 2022-10-29 18:14:00 Saeid Camp Manuel [facility] CREATININE, RANDOM URINE 2022-10-29 14:52:00 Pamela Angela [facility] SODIUM 2022-10-29 12:19:00 Humphrey Campal Manuel [facility] SODIUM, RANDOM URINE 2022-10-29 12:19:00 Saeid [facility] UREA NITROGEN, RANDOM 2022-10-29 12:19:00 Saeid Camp Manuel [facility] URINE Center OSMOLALITY, URINE 2022-10-29 12:19:00 Saeid Camp Manuel [facility] OSMOLALITY, SERUM 2022-10-29 12:19:00 Conrado Saeid Manuel [facility] DRUG SCREEN, URINE, 2022-10-29 12:19:00 Agustin Suarez [facility] COMPREHENSIVE [facility] HCG, QUANTITATIVE, 2022-10-29 12:19:00 Agustin Erick, [facility] CTA CAROTID 2022-10-29 10:40:00 [facility]donita [facility] CT BRAIN WITHOUT IV 2022-10-29 10:30:00 [facility] CONTRAST [place] CTA BRAIN 2022-10-29 10:20:00 [facility] RAPID DRUG SCREEN, URINE 2022-10-29 08:37:00 Saeid Camp ip [facility] SCREEN, URINE 2022-10-29 08:37:00 [place] [facility] BLOOD GAS, ARTERIAL 2022-10-29 07:53:00 [facility] XR CHEST 1 VIEW PORTABLE 2022-10-29 04:06:00 [facility] / BEDSIDE Center US GUIDE, VASCULAR 2022-10-29 03:47:51 [facility] ACCESS Center OR INSERT 2022-10-29 03:46:45 [facility] CATH,ART,PERCUT,SHORTTER Center M BLOOD GAS, ARTERIAL 2022-10-29 03:46:00 [facility] CBC W/PLT COUNT & AUTO 2022-10-29 03:45:00 [facility] DIFFERENTIAL Center COMPREHENSIVE METABOLIC 2022-10-29 03:45:00 [facility] PANEL Center MAGNESIUM 2022-10-29 03:45:00 [facility] PHOSPHORUS 2022-10-29 03:45:00 [facility] CALCIUM, IONIZED 2022-10-29 03:45:00 [facility] TSH/FREE T4 IF INDICATED 2022-10-29 03:45:00 [facility] HEMOGLOBIN A1C 2022-10-29 03:45:00 [facility], [facility] PROTHROMBIN TIME/INR 2022-10-29 03:45:00 [facility] APTT 2022-10-29 03:45:00 [facility] T4, FREE 2022-10-29 03:45:00 [facility] CBC W/PLT COUNT & AUTO 2022-10-29 03:45:00 Pitta, [facility] ECG 12-LEAD 2022-10-29 03:28:02 Unknown, Hl7 [facility] ECG 12-LEAD 2022-10-29 03:27:17 Pitta, [facility] ECG 12-LEAD 2022-10-29 03:27:17 Unknown, Hl7 [facility] EKG-SCANNED 2022-10-29 00:00:00 Provider, [facility] BASIC METABOLIC PANEL 2022-08-11 04:41:00 [facility] MAGNESIUM 2022-08-11 04:41:00 [facility] CALCIUM, IONIZED 2022-08-11 04:41:00 [facility] PHOSPHORUS 2022-08-11 04:41:00 [facility] CBC W/PLT COUNT & AUTO 2022-08-11 04:41:00 [facility] CBC W/PLT COUNT & AUTO 2022-08-11 04:41:00 [facility] BASIC METABOLIC PANEL 2022-08-10 16:09:00 [facility] SODIUM, RANDOM URINE 2022-08-10 09:33:00 [facility] UREA NITROGEN, RANDOM 2022-08-10 09:33:00 [facility] URINE [facility] CREATININE, RANDOM URINE 2022-08-10 09:33:00 [facility] OSMOLALITY, URINE 2022-08-10 09:33:00 [facility] TSH/FREE T4 IF INDICATED 2022-08-10 09:33:00 [facility] CORTISOL 2022-08-10 09:33:00 [facility] OSMOLALITY, SERUM 2022-08-10 09:33:00 [facility] T4, FREE 2022-08-10 09:33:00 [facility] CBC (HEMOGRAM ONLY) 2022-08-10 05:06:00 [facility] BASIC METABOLIC PANEL 2022-08-10 05:06:00 [facility] MAGNESIUM 2022-08-10 05:06:00 [facility] CBC (HEMOGRAM ONLY) 2022-08-09 03:38:00 [facility] BASIC METABOLIC PANEL 2022-08-09 03:38:00 [facility] MAGNESIUM 2022-08-09 03:38:00 [facility] CBC (HEMOGRAM ONLY) 2022-08-08 04:25:00 [facility] BASIC METABOLIC PANEL 2022-08-08 04:25:00 [facility] B-TYPE NATRIURETIC 2022-08-08 04:25:00 [facility] Medical FACTOR (BNP) [facility] STD PANEL - CT/GC RNA 2022-08-07 16:52:00 [facility] FUNGUS CULTURE + SMEAR 2022-08-07 10:22:00 Aida Alcala CH I [facility] ANAEROBIC CULTURE 2022-08-07 10:22:00 Aida Alcala [facility] WOUND CULTURE + GRAM 2022-08-07 10:22:00 Clifton De Luna [facility] STAIN [facility] RADIOLOGIC GUIDANCE & 2022-08-07 10:20:00 Aida Alcala [facility] INTERP/SPEC [facility] BASIC METABOLIC PANEL 2022-08-07 03:42:00 Higinio [facility] CBC (HEMOGRAM ONLY) 2022-08-07 03:41:00 Higinio [facility] CT ABDOMEN/PELVIS WITH 2022-08-06 00:22:00 Aida Alcala CH I [facility] IV CONTRAST [facility] SCREEN, URINE 2022-08-05 21:06:00 Ronal Duran [facility] CBC W/PLT COUNT & AUTO 2022-08-05 20:40:00 Aida Alcala I [facility] DIFFERENTIAL [facility] BASIC METABOLIC PANEL 2022-08-05 20:40:00 Aida Alcala [facility] PROTHROMBIN TIME/INR 2022-08-05 20:40:00 [facility] TYPE AND SCREEN, 2022-08-05 20:40:[address] [facility] AUTOMATED [facility] CBC W/PLT COUNT & AUTO 2022-08-05 20:40:00 Aida Alcala I [facility] DIFFERENTIAL [facility] (CELLAVISION MANUAL 2022-08-05 20:40:00 [facility] DIFF) [facility] TRANSTHORACIC ECHO FOR 2022-08-03 13:59:39 Unknown, Hl7 Doctor C [facility] BASIC METABOLIC PANEL 2022-08-03 04:31:00 [facility] CBC (HEMOGRAM ONLY) 2022-08-03 04:31:00 Sybil De Lunalucillegeorge [facility] CBC W/PLT COUNT & AUTO 2022-08-02 13:09:00 [facility] BASIC METABOLIC PANEL 2022-08-02 13:09:00 [facility] CBC W/PLT COUNT & AUTO 2022-08-02 13:09:00 [facility] (CELLAVISION MANUAL 2022-08-02 13:09:[address] [facility] DIFF) Center NM MYOCARDIAL PERFUSION 2022-08-01 13:31:00 [facility] SPECT, PHARM [facility] TREADMILL 2022-08-01 11:39:56 Unknown, 7 [facility](NON-NUCLEAR Center TREADMILL) ECG 12-LEAD 2022-08-01 10:14:26 Unknown, Hl7 [facility] ECG 12-LEAD 2022-08-01 10:14:26 Unknown, 7 [facility] ECG 12-LEAD 2022-08-01 10:13:38 Unknown, 7 [facility] ECG 12-LEAD 2022-08-01 10:13:38 Unknown, 7 [facility] CBC W/PLT COUNT & AUTO 2022-08-01 04:47:00 [facility] BASIC METABOLIC PANEL 2022-08-01 04:47:00 Leonid [facility] MAGNESIUM 2022-08-01 04:47:00 Leonid Harris [facility] PHOSPHORUS 2022-08-01 04:47:00 Leonid Harris [facility] HEMOGLOBIN A1C 2022-08-01 04:47:00 [facility] PT/APTT 2022-08-01 04:47:00 [facility] HCG, QUANTITATIVE, 2022-08-01 04:47:00 [facility] TYPE AND SCREEN, 2022-08-01 04:47:00 Leonid Harris [facility] AUTOMATED Center CBC W/PLT COUNT & AUTO 2022-08-01 04:47:00 [facility] (CELLAVISION MANUAL 2022-08-01 04:47:00 [facility] DIFF) Center 2D ECHO W/ DOPPLER 2022-07-31 15:20:04 LT[facility] (CW/PW/COLOR) [facility] ECG 12-LEAD 2022-07-31 15:01:36 [facility] ECG 12-LEAD 2022-07-31 15:01:36 Unknown, Hl7 [facility] ENDOVAGINAL EV 2022-07-31 12:52:00 [facility] US PELVIS 2022-07-31 12:52:00 [facility] US DOPPLER 2022-07-31 12:52:00 [facility] BASIC METABOLIC PANEL 2022-07-31 03:09:00 Dewayne Reilly [facility] An [place] MAGNESIUM 2022-07-31 03:09:00 Dewayne Reilly [facility] PHOSPHORUS 2022-07-31 03:09:00 Dewayne Reilly [facility] CBC W/PLT COUNT & AUTO 2022-07-31 03:09:00 Dewayne Reilly [facility] DIFFERENTIAL [facility] LIPID PANEL 2022-07-31 03:09:00 [facility] CBC W/PLT COUNT & AUTO 2022-07-31 03:09:00 Dewayne Reilly [facility] DIFFERENTIAL An [place] XR CHEST 1 VIEW PORTABLE 2022-07-30 16:42:00 Dewayne Reilly [facility] / BEDSIDE An Center CBC W/PLT COUNT & AUTO 2022-07-30 15:38:00 [facility] Medical DIFFERENTIAL An Center BASIC METABOLIC PANEL 2022-07-30 15:38:00 [facility] Medical An Center PROTHROMBIN TIME/INR 2022-07-30 15:38:00 [facility] MAGNESIUM 2022-07-30 15:38:00 [facility] Medical An Center CBC W/PLT COUNT & AUTO 2022-07-30 15:38:00 [facility] DI[facility] Plan of Care Planned Activity Planned Date Details Comments Source Future Scheduled 2025-07-31 Lipid panel (procedure) [facility] 00:00:00 [code = 97259274] Medical Ce nter Future Scheduled 2025-07-31 Lipid panel (procedure) [facility] 00:00:00 [code = 79846260] Medical Ce nter Future Scheduled 2025-07-31 Lipid panel (procedure) [facility] 00:00:00 [code = 09591493] Medical Ce nter Future Scheduled 2025-07-31 Lipid panel (procedure) [facility] 00:00:00 [code = 51068029] Medical Ce nter Future Scheduled 2025-07-31 Lipid panel (procedure) [facility] 00:00:00 [code = 18606884] Medical Ce nter Future Scheduled 2025-07-31 Lipid panel (procedure) [facility] 00:00:00 [code = 57608983] Medical Ce nter Future Scheduled 2022-11-16 Influenza [...] [facility] 00:00:00 [code = 86353840] Medical Ce nter Future Scheduled 2021-03-18 DEPRESSION [...] cervix Medical C enter (procedure) [code = 473411581] Future Scheduled 1997 Screening for malignant [facility] 00:00:00 neoplasm of cervix Medical C enter (procedure) [code = 969891704] Future Scheduled 1997 Screening for malignant [facility] 00:00:00 neoplasm of cervix Medical C enter (procedure) [code = 981583746] Future Scheduled 1997 Screening for malignant [facility] 00:00:00 neoplasm of cervix Medical C enter (procedure) [code = 495241430] Future Scheduled 1997 Screening for malignant [facility] 00:00:00 neoplasm of cervix Medical C enter (procedure) [code = 678663773] Future Scheduled 1997 Screening for malignant [facility] 00:00:00 neoplasm of cervix Medical C enter (procedure) [code = 365096537] Future Scheduled 1997 Screening for malignant [facility] 00:00:00 neoplasm of cervix Medical C enter (procedure) [code = 428197647] Future Scheduled 1995 DTAP/TDAP/TD VACCINES (1 [facility] [...] screening Medical Cent er (procedure) [code = 808482290] Future Scheduled [address] [facility]00 virus screening Medical Cent er (procedure) [code = 391763182] Future Scheduled [address] [facility] 00:00:00 virus screening Medical Cent er (procedure) [code = 554005775] Future Scheduled [address] [facility] 00:00:00 virus screening Medical Cent er (procedure) [code = 721319471] Future Scheduled [address] [facility] 00:00:00 virus screening Medical Cent er (procedure) [code = 589787120] Future Scheduled [address] [facility] 00:00:00 virus screening Medical Cent er (procedure) [code = 173573186] Future Scheduled [address] [facility] 00:00:00 Counseling and Screening [facility] Center (12+) [code = Tobacco Cessation Counseling and Screening (12+)] Future Scheduled [address] [facility] 00:00:00 Counseling and Screening [facility] (12+) [code = Tobacco Cessation Counseling and Screening (12+)] Future Scheduled [address] [facility] 00:00:00 Counseling and Screening [facility] Center (12+) [code = Tobacco Cessation Counseling and Screening (12+)] Future Scheduled [address] [facility] 00:00:00 Counseling and Screening [facility] (12+) [code = Tobacco Cessation Counseling and Screening (12+)] Future Scheduled [address] [facility] 00:00:00 Counseling and Screening [facility] (12+) [code = Tobacco Cessation Counseling and Screening (12+)] Future Scheduled [address] [facility] 00:00:00 Counseling and Screening [facility] (12+) [code = Tobacco Cessation Counseling and [...] Med ical Center (#1)] Future Scheduled 1976 Sigmoidoscopy [code = [facility] S[facility]oidoscopy] [facility] Future Scheduled 1976 CT Colonography (combo) [facility] 00:00:00 [code = CT Colonography [facility] (combo)] Future Scheduled 1976 Screening for malignant [facility] 00:00:00 neoplasm of colon Medical Ce nter (procedure) [code = 009443497] Future Scheduled 1976 Screening for malignant [facility] 00:00:00 neoplasm of colon Medical Ce nter (procedure) [code = 100225348] Future Scheduled 1976 Screening for malignant [facility] 00:00:00 neoplasm of colon Medical Ce nter (procedure) [code = 839583878] Future Scheduled 1976 Screening for malignant [facility] 00:00:00 neoplasm of colon Medical Ce nter (procedure) [code = 350509474] Future Scheduled 1976 Sigmoidoscopy [facility]code [facility] S[facility]oscopy] Medical Cente r Future Scheduled 1976 CT Colonography (combo) [facility] 00:00:00 [code = CT Colonography [facility] (combo)] Future Scheduled 1976 Screening for malignant [facility] 00:00:00 neoplasm of colon Medical Ce nter (procedure) [code = 297161441] Future Scheduled 1976 Screening for malignant [facility] 00:00:00 neoplasm of colon Medical Ce nter (procedure) [code = 686918658] Future Scheduled 1976 Screening for malignant [facility] 00:00:00 neoplasm of colon Medical Ce nter (procedure) [code = 772935051] Future Scheduled 1976 Screening for malignant [facility] 00:00:00 neoplasm of colon Medical Ce nter (procedure) [code = 883951561] Future Scheduled 1976 Sigmoidoscopy [facility]code = [facility] S[facility]oidoscopy] Medical Cente r Future Scheduled 1976 CT Colonography (combo) [facility] 00:00:00 [code = CT Colonography [facility] (combo)] Future Scheduled 1976 Screening for malignant [facility] 00:00:00 neoplasm of colon Medical Ce nter (procedure) [code = 311511544] Future Scheduled 1976 Screening for malignant [facility] 00:00:00 neoplasm of colon Medical Ce nter (procedure) [code = 142133591] Future Scheduled 1976 Screening for malignant [facility] 00:00:00 neoplasm of colon Medical Ce nter (procedure) [code = 208894150] Future Scheduled 1976 Screening for malignant [facility] 00:00:00 neoplasm of colon Medical Ce nter (procedure) [code = 242055796] Future Scheduled 1976 Sigmoidoscopy [facility]code = [facility] S[facility]oidoscopy] Medical Cente r Future Scheduled 1976 CT Colonography (combo) [facility] 00:00:00 [code = CT Colonography [facility] (combo)] Future Scheduled 1976 Screening for malignant [facility] 00:00:00 neoplasm of colon Medical Ce nter (procedure) [code = 731290468] Future Scheduled 1976 Screening for malignant [facility] 00:00:00 neoplasm of colon Medical Ce nter (procedure) [code = 897490688] Future Scheduled 1976 Screening for malignant [facility] 00:00:00 neoplasm of colon Medical Ce nter (procedure) [code = 614957856] Future Scheduled 1976 Screening for malignant [facility] 00:00:00 neoplasm of colon Medical Ce nter (procedure) [code = 203014034] Future Scheduled 1976 Sigmoidoscopy [facility]code = [facility] S[facility]oidoscopy] Medical Cente r Future Scheduled 1976 CT Colonography (combo) [facility] 00:00:00 [code = CT Colonography [facility] Center (combo)] Future Scheduled 1976 Screening for malignant [facility] 00:00:00 neoplasm of colon Medical Ce nter (procedure) [code = 670660947] Future Scheduled 1976 Screening for malignant [facility] 00:00:00 neoplasm of colon Medical Ce nter (procedure) [code = 286597005] Future Scheduled 1976 Screening for malignant [facility] 00:00:00 neoplasm of colon Medical Ce nter (procedure) [code = 859129120] Future Scheduled 1976 Screening for malignant [facility] 00:00:00 neoplasm of colon Medical Ce nter (procedure) [code = 835009236] Future Scheduled 1976 Sigmoidoscopy [facility]code [facility] S[facility]oidoscopy] Medical Cente r Future Scheduled 1976 CT Colonography (combo) [facility] 00:00:00 [code = CT Colonography [facility] Center (combo)] Future Scheduled 1976 Screening for malignant [facility] 00:00:00 neoplasm of colon Medical Ce nter (procedure) [code = 193213153] Future Scheduled 1976 Screening for malignant [facility] 00:00:00 neoplasm of colon Medical Ce nter (procedure) [code = 660388431] Future Scheduled 1976 Screening for malignant [facility] 00:00:00 neoplasm of colon Medical Ce nter (procedure) [code = 687511786] Future Scheduled 1976 Screening for malignant [facility] 00:00:00 neoplasm of colon Medical Ce nter (procedure) [code = 674702201] Future Scheduled 1976 Sigmoidoscopy [code = [facility] Sigmoidoscopy] Medical Cente r Future Scheduled 1976 CT Colonography (combo) [facility] 00:00:00 [code = CT Colonography [facility] Center (combo)] Future Scheduled 1976 Screening for malignant [facility] 00:00:00 neoplasm of colon Medical Ce nter (procedure) [code = 481848603] Future Scheduled 1976 Screening for malignant [facility] 00:00:00 neoplasm of colon Medical Ce nter (procedure) [code = 902166419] Future Scheduled 1976 Screening for malignant [facility] 00:00:00 neoplasm of colon Medical Ce nter (procedure) [code = 890290565] Future Scheduled 1976 Screening for malignant [facility] 00:00:00 neoplasm of colon Medical Ce nter (procedure) [code = 323709166] Encounters Start End Encounter Admission Attending Care Care Encounter Source Date/Time Date/Time Type Type Clinicians Facility Department ID 2022-11-07 Inpatient ER MIR ARITA [facility] [id number] [facility] 19:39:43 2022-11-06 Inpatient ER JUJU TAI [facility] [id number] [facility] 11:21:11 2022-11-06 Inpatient ER JUJU TAI [facility] SLEH [id number] SLEH 10:39:32 2022-11-05 Inpatient ER JUJU TAI [facility] SLEH [id number] SLEH 13:31:19 2022-11-03 Inpatient ER JUUJ TAI [facility]H SLEH [id number] SLEH 10:45:25 2022-11-01 Inpatient ER SLEH SLEH [id number] SLEH 09:28:17 2022-11-01 Inpatient ER SLEH SLEH [id number] SLEH 09:11:47 2022-10-31 Inpatient ER BERSHAD, SLEH SLEH [id number] SLEH 00:51:03 KATHY 2022-10-31 Inpatient ER BERSHAD, SLEH SLEH [id number] SLEH 00:50:54 KATHY 2022-10-30 Inpatient ER SLEH SLEH [id number] SLEH 15:54:13 2022-10-30 Inpatient ER BERSHAD, SLEH SLEH [id number] SLEH 09:14:25 KATHY 2022-10-30 Inpatient ER BERSHAD, SLEH SLEH [id number] SLEH 05:26:11 KATHY 2022-10-29 Inpatient ER BERSHAD, SLEH SLEH [id number] SLEH 17:09:25 KATHY 2022-10-29 [facility] [id number] [facility] 03:50:03 MURRAY 2023-01-31 2023-01-31 Outpatient [facility] [id number] Martin 15:10:33 15:10:33 1116 F Tello 2023-01-29 2023-01-29 CARLOS Caruso 1.2.840.114 [id number] Univers 00:00:00 00:00:00 (Out) Cardiology HEALTH 350.1.13.10 ity of - Clear CLEAR 4.2.7.2.686 David WANG [id number] [place] [address] [address] OFFICE [facility] 2023-01-24 2023-01-24 Orders Doctor YAIMA 1.2.840.114 [id number] Univers 00:00:00 00:00:00 Only Unassigned, VLAD 350.1.13.10 [facility] 4.2.7.2.686 Anthony as [id number] [facility] [address] 2023-01-22 2023-01-22 Outpatient [facility] [id number] Martin 08:26:51 08:26:51 1107 F [place] 2022-12-27 2022-12-27 Outpatient [facility] [id number] Martin 10:33:43 10:33:43 1012 F [place] 2022-11-29 2022-11-29 Transition MONSE Sotelo 1.2.840.114 [id number] Univers 00:00:00 00:00:00 of Care Desi REDDY 350.1.13.10 ity of [place] [id number] [facility] [address] 2022-11-24 2022-11-28 Inpatient U [facility] [id number] Univers 11:15:00 21:45:[address] [facility] 2022-11-24 2022-11-28 [facility] 1.2.840.114 [id number] Univers 11:15:00 21:45:00 Encounter Ryne Yoder 350.1.13.1 0 ity of [facility] 4.2.7.2.686 [place] [id number] [facility] [address] 2022-11-24 2022-11-28 Inpatient U [facility] [id number] Univers 11:15:00 21:45:[address] [facility] 2022-10-29 2022-11-13 [facility] [id number] [facility] 02:56:00 21:30:00 Kathy Espinosa Najamus M edical Khan, Maria Cent er Damani, Rahul Hareshkumar Ali, Hiba Tahir Merchant, Omar 2022-10-29 2022-11-13 Inpatient ER , SLE Neurology [id number] SLEH 02:56:00 21:30:00 GOYO 2022-11-06 2022-11-06 Inpatient ER SLEH SLEH [id number] SLEH 08:32:27 00:00:00 2022-11-06 2022-11-06 Orders [facility] [id number] 00:00:00 00:00:00 [facility] 2022-11-05 2022-11-05 Outpatient SLEH SLEH [id number] SLEH 00:00:00 00:00:00 2022-11-05 2022-11-05 Outpatient SLEH SLEH [id number] SLEH 00:00:00 00:00:00 2022-11-02 2022-11-02 Inpatient ER JUJU TAI SLEH SLEH [id number] SLEH 10:58:08 00:00:00 2022-10-29 2022-10-29 Inpatient ER PITTARD, SLEH SLEH [id number] SLEH 10:12:32 23:59:00 MURRAY 2022-10-29 2022-10-29 [facility] Murray [facility] [id number] [facility] 09:35:00 23:59:00 [facility] 2022-10-29 2022-10-29 Inpatient ER PITTARD, SLEH SLEH [id number] SLEH 10:12:49 00:00:00 MURRAY 2022-10-29 2022-10-29 Inpatient ER PITTARD, SLEH SLEH [id number] SLEH 10:12:41 00:00:00 MURRAY 2022-10-29 2022-10-29 Orders [facility] [id number] 00:00:00 00:00:00 [facility] 2022-08-12 2022-08-12 Telephone Gregory [facility] [id number] 00:00:00 00:00:00 [facility] 2022-08-05 2022-08-11 Hospital ER Popeye Mcneal [facility] [id number] 18:09:00 14:47:00 Encounter Aida Alcala [facility] Kristin [facility] 2022-08-05 2022-08-11 Inpatient ER [facility] Gynecology [id number] SLE 18:09:00 14:47:00 [place] [facility] 2022-08-05 2022-08-05 Travel [facility] [id number] [facility] 00:00:00 00:00:00 [facility] 2022-07-31 2022-08-03 Hospital UR Les Al [facility] [id number] 04:37:00 20:00:00 [facility] 2022-07-31 2022-08-[address] [facility] Med [id number] [facility] 04:37:00 20:00:00 [facility] 2022-07-30 2022-07-31 Inpatient ER [facility] Gynecology [id number] SLS 14:07:00 04:04:00 DAYRON 2022-07-30 2022-07-31 [facility] [id number] 14:07:00 04:04:00 Encounter Dayron [facility] 2022-07-31 2022-07-31 Orders [facility] [id number] 00:00:00 00:00:00 Only [facility] 2022-07-30 2022-07-30 Travel [facility] [id number] [facility] 00:00:00 00:00:00 [facility] Results Test Description Test Time Test Comments Results Result Comments Source HEPATIC FUNCTION PANEL (25426) (ALB,T.PRO,BILI 2022-11-26 13 :08:17 T,BU/BC,ALT,AST,ALK PHOS) Test Item Value Reference Range Interpretation Comme nts TOTAL BILI (test code = 9033356542) 0.9 mg/dL 0.1-1.1 BILI UNCON (test code = 4483493136) 0.6 mg/dL 0.1-1.1 BILI CONJ (test code = 7443554502) 0.0 mg/dL 0.0-0.3 T PROTEIN (test code = 5709287648) 6.5 g/dL 6.3-8.2 ALBUMIN (test code = 3642003012) 4.0 g/dL 3.5-5.0 ALK PHOS (test code = 0341204898) 527 U/L 34-122 H ALTv (test code = 1742-6) 116 U/L 5-35 H AST(SGOT) (test code = 1724262864) 76 U/L 13-40 H Lab Interpretation (test code = 21126-2) Abnormal [facility] METABOLIC PANEL (NA, K, CL, CO2, GLUCOSE, BUN, CREATININE, CA)2022-11-26 10:08:01 Test Item Value Reference Range Interpretation Comments NA (test code = 136 mmol/L 135-145 9465282199) K (test code = 4.1 mmol/L 3.5-5.0 7772882442) CL (test code = 100 mmol/L 98-108 7728735052) CO2 TOTAL (test code 28 mmol/L 23-31 = 3726816797) AGAP (test code = 8 2-16 7510730988) BUN (test code = 17 mg/dL 7-23 8828171536) GLUCOSE (test code = 87 mg/dL 70-110 5908425605) CREATININE (test code 1.00 mg/dL 0.50-1.04 = 8723116347) CALCIUM (test code = 9.3 mg/dL 8.6-10.6 3210666646) eGFR (test code = 59.7 mL/min/1.73m2 9680887248) SUE (test code = SUE) Association of [...] or urine or abnormalities in imaging tests). [facility] Test Item Value Reference Range Interpretation Comments MAGNESIUM (test code = 3238365504) 1.8 mg/dL 1.7-2.4 Lab Interpretation (test code = Normal 56943-7) [facility] WITH [id number] 09:36:22 Test Item Value Reference Range Interpretation [...] RDW-SD (test code = 42.7 fL 39.0-49.9 55343-2) RDW-CV (test code = 12.5 % 12.0-15.5 788-0) PLT (test code = 151 See_Comment L [Automated 777-3) message] The sy stem which generated this result transmitted reference range : 166 - 358 10*3/ ?L. The reference r elizabeth was not used to interpret this result as normal/abnormal . MPV (test code = 9.4 fL 9.5-12.9 L 07341-9) NRBC/100 WBC (test 0.0 See_Comment [Automat ed code = 1163433202) message] The system which generated this result transmitted reference range : 0.0 - 10.0 /100 WBCs. The refer ence range was not u sed to interpret th is result as normal/abnormal . NRBC x10^3 (test code See_Comment [Auto mated = 7626007320) message] The s ystem which generated this result transmitted reference range : 10*3/?L. The reference range was not used to interpret this result as normal/abnormal . GRAN MAT (NEUT) % 68.0 % (test code = 770-8) IMM GRAN % (test code 0.00 % = 1173241051) LYMPH % (test code = 17.7 % 736-9) MONO % (test code = 9.1 % 5905-5) EOS % (test code = 4.5 % 713-8) BASO % (test code = 0.7 % 706-2) GRAN MAT x10^3(ANC) 2.84 10*3/uL 1.88-7.09 (test code = 5078326301) IMM GRAN x10^3 (test 0.00-0.06 code = 5693657563) LYMPH x10^3 (test code 0.74 10*3/uL 1.32-3.29 L = 731-0) MONO x10^3 (test code 0.38 10*3/uL 0.33-0.92 = 742-7) EOS x10^3 (test code = 0.19 10*3/uL 0.03-0.39 711-2) BASO x10^3 (test code 0.03 10*3/uL 0.01-0.07 = 704-7) Lab Interpretation Abnormal (test code = 79381-6) [facility] METABOLIC PANEL (NA, K, CL, CO2, GLUCOSE, BUN, CREATININE, CA)2022-11-25 09:47:18 Test Item Value Reference Range Interpretation Comments NA (test code = 135 mmol/L 135-145 7736027678) K (test code = 5.0 mmol/L 3.5-5.0 Slight 1790396992) hemolysis CL (test code = 100 mmol/L 98-108 4682437333) CO2 TOTAL (test code 28 mmol/L 23-31 = 5884396852) AGAP (test code = 7 2-16 9843276157) BUN (test code = 20 mg/dL 7-23 Slight 1021600005) hemolysis GLUCOSE (test code = 109 mg/dL 70-110 3170219153) CREATININE (test code 1.20 mg/dL 0.50-1.04 H = 4960075481) CALCIUM (test code = 9.2 mg/dL 8.6-10.6 5692154889) eGFR (test code = 48.4 mL/min/1.73m2 0290943008) SUE (test code = SUE) Association of [...] tests). Lab Interpretation Abnormal (test code = 01007-6) [facility] Test Item Value Reference Range Interpretation Comments MAGNESIUM (test code = 9224855662) 3.1 mg/dL 1.7-2.4 H Lab Interpretation (test code = Abnormal 80556-9) [facility] [id number] 23:52:42 Test Item Value Reference Range Interpretation Comments HAVM 0.05 Semi-Quantitative (test code = 97207-0) SUE (test code = HAVAb IgM Interpretative SUE) Information: Reactive greater than or equal to 1.2 Biotin has been reported to cause a negative bias, interpret results relative to patient's use of biotin. [facility] [id number] 23:35:43 Test Item Value Reference Range Interpretation Comments TROPONIN I (test code = 0.911 ng/mL <=0.034 H 1992327997) SUE (test code = SUE) Reference (Normal) [...] biotin. Lab Interpretation Abnormal (test code = 38917-9) [facility]-AB WITH [id number] 21:57:58 Test Item Value Reference Range Interpretation Comments HIV 0.12 Negative Semi-quantitative (test code = 06714-6) SUE (test code = Non-reactive for HIV-1 SUE) antigen and HIV-1/HIV-2 antibodies. ?No laboratory evidence of HIV infection. ?Repeat in 2-4 weeks if acute HIV infection is suspected. [facility] [id number] 21:57:58 Test Item Value Reference Range Interpretation Comments HCV Ab (test code = 89677-3) Negative HCV Semi-Quantitative (test code = 0.01 18953-1) [facility] [id number] 21:57:58 Test Item Value Reference Range Interpretation Comments HBsAB (test code = Negative 4207244636) HBsAb 0.00 mIU/mL Semi-Quantitative (test code = 6765573690) SUE (test code = Interpretation: SUE) ?Hepatitis B Surface Antibody ? Negative - Patient is considered to be not immune to infection with HBV. ? ? Positive - Anti-HBs detected at greater than or equal to 12 mIU/mL. ?Patient is considered to be immune to infection with HBV. ? [facility] [id number] 21:40:35 Test Item Value Reference Range Interpretation Comments HBsAg Semi-Quantitative (test code = 0.14 Negative 5195-3) [facility] (A1C)2022-11-24 18:18:35 Test Item Value Reference Range Interpretation Comments HGB A1C (test code = 4.6 % 4.0-5.7 4548-4) SUE (test code = SUE) Reference RangesNormal: <5.7%Prediabetes: 5.7 - 6.4%Diabetes: > 6.5% Lab Interpretation (test Normal code = 69692-3) [facility] [id number] 17:58:24 Test Item Value Reference Range Interpretation Comments TSH (test code = 2.03 See_Comment [Automated message] 6795222543) The system Sample6 generated this result transmitted ref erence range: 0.45 - 4 .70 mIU/L. The refe rence range was not u sed to interpret this result as normal/abnor mal. Lab Interpretation (test Normal code = 67132-8) [facility] [id number] 17:39:48 Test Item Value Reference Range Interpretation Comments TROPONIN I (test code = 1.340 ng/mL <=0.034 H 8297946549) SUE (test code = SUE) Reference (Normal) [...] biotin. Lab Interpretation Abnormal (test code = 57606-6) [facility]MINAL [id number] 17:39:48 Test Item Value Reference Range Interpretation Comments NT-proBNP (test code = 2520 pg/mL <=125 H 38703-5) SUE (test code = SUE) Positive: Heart Failure Likely Lab Interpretation (test Abnormal code = 90027-4) [facility] (NA, K, CL, CO2, GLUCOSE, BUN, CREATININE, CA)2022-11-24 17:30:04 Test Item Value Reference Range Interpretation Comments NA (test code = 135 mmol/L 135-145 3838184553) K (test code = 3.9 mmol/L 3.5-5.0 0451647538) CL (test code = 97 mmol/L 98-108 L 3489358883) CO2 TOTAL (test code = 27 mmol/L 23-31 5223285638) AGAP (test code = 11 2-16 6406369179) BUN (test code = 23 mg/dL 7-23 1958368541) GLUCOSE (test code = 163 mg/dL 70-110 H 3339743902) CREATININE (test code = 1.40 mg/dL 0.50-1.04 H 6930448147) CALCIUM (test code = 9.4 mg/dL 8.6-10.6 9145630417) eGFR (test code = 40.5 mL/min/1.73m2 1624632646) SUE (test code = SUE) Association of [...] tests). Lab Interpretation Abnormal (test code = 40059-1) [facility]49880[facility] (ALB,T.PRO,BILI T,BU/BC,ALT,AST,ALK PHOS)2022-11-24 17:30:04 Test Item Value Reference Range Interpretation Comments TOTAL BILI (test code = 3771804993) 1.0 mg/dL 0.1-1.1 BILI UNCON (test code = 7923646209) 0.6 mg/dL 0.1-1.1 BILI CONJ (test code = 7331733836) 0.0 mg/dL 0.0-0.3 T PROTEIN (test code = 5932781356) 6.8 g/dL 6.3-8.2 ALBUMIN (test code = 0563831840) 4.1 g/dL 3.5-5.0 ALK PHOS (test code = 6483879170) 746 U/L 34-122 H ALTv (test code = 1742-6) 183 U/L 5-35 H AST(SGOT) (test code = 2543792612) 196 U/L 13-40 H Lab Interpretation (test code = Abnormal 37397-8) [facility] (60259)(TOTAL CHOLESTEROL, TRIGLYCERIDES, HDL)2022-11-24 17:30:04 Test Item Value Reference Range Interpretation Comments CHOL (test code = 4528504001) 113 mg/dL 120-200 L HDL (test code = 2866909132) 62 mg/dL >=50 HDLC RATIO (test code = 5956664053) 1.8 <=4.5 TRIG (test code = 9919513562) 71 mg/dL 30-170 LDL CHOL (test code = 05710-4) 37 mg/dL <=160 VLDL (test code = 1194168414) 14 mg/dL 5-60 Lab Interpretation (test code = Abnormal 75659-7) [facility] WITH [id number] 16:55:22 Test Item Value Reference Range Interpretation Comments WBC (test code = 6.05 See_Comment [Automated 4032-2) message] The sy stem which generated this result transmitted reference range : 4.30 - 11.10 10*3/?L. The reference range was not used to interpret this result as normal/abnormal . RBC (test code = 3.21 See_Comment L [Automated 543-8) message] The sy stem which generated this [...] RDW-SD (test code = 44.3 fL 39.0-49.9 35137-6) RDW-CV (test code = 12.9 % 12.0-15.5 788-0) PLT (test code = 203 See_Comment [Automated 777-3) message] The sy stem which generated this result transmitted reference range : 166 - 358 10*3/ ?L. The reference r elizabeth was not used to interpret this result as normal/abnormal . MPV (test code = 9.9 fL 9.5-12.9 70172-6) NRBC/100 WBC (test 0.0 See_Comment [Automat ed code = 1589220681) message] The system which generated this result transmitted reference range : 0.0 - 10.0 /100 WBCs. The refer ence range was not u sed to interpret th is result as normal/abnormal . NRBC x10^3 (test code See_Comment [Auto mated = 5399180490) message] The s ystem which generated this result transmitted reference range : 10*3/?L. The reference range was not used to interpret this result as normal/abnormal . GRAN MAT (NEUT) % 59.6 % (test code = 770-8) IMM GRAN % (test code 0.20 % = 0124354519) LYMPH % (test code = 28.3 % 736-9) MONO % (test code = 9.1 % 5905-5) EOS % (test code = 2.5 % 713-8) BASO % (test code = 0.3 % 706-2) GRAN MAT x10^3(ANC) 3.61 10*3/uL 1.88-7.09 (test code = 5389736113) IMM GRAN x10^3 (test 0.00-0.06 code = 9394396181) LYMPH x10^3 (test code 1.71 10*3/uL 1.32-3.29 = 731-0) MONO x10^3 (test code 0.55 10*3/uL 0.33-0.92 = 742-7) EOS x10^3 (test code = 0.15 10*3/uL 0.03-0.39 711-2) BASO x10^3 (test code 0.01-0.07 = 704-7) Lab Interpretation Abnormal (test code = 17336-3) [facility]-Glucose [id number] 12:43:54 Test Item Value Reference Range Interpretation Comments POC-Glucose Meter (test 138 mg/dL 70-110 H : TE STED AT [facility] code = 1538) [address] [place] [address], [facility] 30: Vocational Counselor/Techni smiley ID = [id number] for IVÁN, FERMIN [place] Lab Interpretation (test Abnormal code = 34767-5) [facility]-Glucose [id number] 12:43:54 Test Item Value Reference Range Interpretation Comments POC-Glucose Meter (test 138 mg/dL 70-110 H : TE STED AT [facility] code = 1538) [address] [place] [address], [facility] 30: Vocational Counselor/Techni smiley ID = [id number] for IVÁN, FERMIN [place] Lab Interpretation (test Abnormal code = 00006-3) [facility]-Glucose [id number] 12:43:54 Test Item Value Reference Range Interpretation Comments POC-Glucose Meter (test 138 mg/dL 70-110 H : TE STED AT [facility] code = 1538) [address] [place] [address], [facility] 30: Vocational Counselor/Techni smiley ID = [id number] for IVÁN, FERMIN [place] Lab Interpretation (test Abnormal code = 35355-5) [facility]-Glucose [id number] 12:43:54 Test Item Value Reference Range Interpretation Comments POC-Glucose Meter (test 138 mg/dL 70-110 H : TE STED AT [facility] code = 1538) [address] [place] [address], [facility] 30: Vocational Counselor/Techni smiley ID = [id number] for IVÁN, FERMIN [place] Lab Interpretation (test Abnormal code = 14342-7) [facility]-Glucose [id number] 12:43:54 Test Item Value Reference Range Interpretation Comments POC-Glucose Meter (test 138 mg/dL 70-110 H : TE STED AT [facility] code = 1538) [address] [place] [address], [facility] 30: Vocational Counselor/Techni smiley ID = [id number] for FERMIN MINOR [place] Lab Interpretation (test Abnormal code = 15787-2) [facility] [id number] 12:43:54 Test Item Value Reference Range Interpretation Comments POC-GLUCOSE METER 138 mg/dL 70-110 H : TESTED A T [facility] 67[address] (BEAKER) (test code = [place], 1538) [address]: Vocational Counselor/Techni smiley ID = [id number] for MANDA ESPARZA [id number] 06:54:19 Test Item Value Reference Range Interpretation Comments PHOSPHORUS (BEAKER) (test code = 4.2 mg/dL 2.3-4.7 604) Vocational Counselor ID - [id number] 06:54:18 Test Item Value Reference Range Interpretation Comments MAGNESIUM (BEAKER) (test code = 1.7 mg/dL 1.6-2.6 627) Vocational Counselor ID - ADMINCBC W/PLT COUNT & AUTO [id number] 06:00:54 Test Item Value Reference Range Interpretation [...] PERCENT (BEAKER) (test code = 2801) POCT-GLUCOSE [id number] 21:38:27 Test Item Value Reference Range Interpretation Comments POC-GLUCOSE METER 88 mg/dL 70-110 : TESTED A T [facility] 6720 (BEAKER) (test code = [facility], 153) [address]: Vocational Counselor/Techni smiley ID = [id number] for NADEGE MORALES POCT-GLUCOSE [id number] 18:19:26 Test Item Value Reference Range Interpretation Comments POC-GLUCOSE METER 93 mg/dL 70-110 : TESTED A T [facility] 6720 (BEAKER) (test code = [facility], 153) [address]: Vocational Counselor/Techni smiley ID = [id number] for NONA REESE, MANDA POCT-GLUCOSE [id number] 13:13:27 Test Item Value Reference Range Interpretation Comments POC-GLUCOSE METER 91 mg/dL 70-110 : TESTED A T [facility] 6720 (BEAKER) (test code = [facility], 153) [address]: Vocational Counselor/Techni smiley ID = [id number] for MART MARY ANN, MANDA BLOOD [id number] 12:00:51 Test Item Value Reference Range Interpretation Comments CULTURE (BEAKER) (test No growth in 5 days code = 1095) BLOOD [id number] 12:00:51 Test Item Value Reference Range Interpretation Comments CULTURE (BEAKER) (test No growth in 5 days code = 1095) The specimen volume collected for this blood culture was below the optimum (10 mL per bottle or 20 mL total). Use of lower volumes may adversely affect recovery and/or detection times of some organisms.POCT-GLUCOSE [id number] 06:46:01 Test Item Value Reference Range Interpretation Comments POC-GLUCOSE METER 102 mg/dL 70-110 : TESTED A T [facility] 6720 (BEAKER) (test code = [place], 1538) [address]: Vocational Counselor/Techni smiley ID = [id number] for Teresa Rose [id number] 05:48:23 Test Item Value Reference Range Interpretation Comments MAGNESIUM (BEAKER) (test code = 1.8 mg/dL 1.6-2.6 627) Vocational Counselor ID - [id number] 05:48:23 Test Item Value Reference Range Interpretation Comments PHOSPHORUS (BEAKER) (test code = 3.6 mg/dL 2.3-4.7 604) Vocational Counselor ID - MARCOBASIC METABOLIC [id number] 05:48:22 Test Item Value Reference Range Interpretation [...] not appl icable for dialysis patien ts Vocational Counselor ID - MARCOCBC W/PLT COUNT & AUTO [id number] 05:10:47 Test Item Value Reference Range Interpretation [...] PERCENT (BEAKER) (test code = 2801) POCT-GLUCOSE [id number] 23:44:35 Test Item Value Reference Range Interpretation Comments POC-GLUCOSE METER 93 mg/dL 70-110 : TESTED A T [facility] 6720 (BEAKER) (test code = [facility], 153) [address]: Vocational Counselor/Techni smiley ID = [id number] for Teresa Camejo POCT-GLUCOSE [id number] 17:35:54 Test Item Value Reference Range Interpretation Comments POC-GLUCOSE METER 108 mg/dL 70-110 : TESTED A T [facility] 6720 (BEAKER) (test code = [facility], 1538) [address]: Vocational Counselor/Techni smiley ID = [id number] for Donna Rolle BLOOD [id number] 17:01:46 Test Item Value Reference Range Interpretation Comments CULTURE (BEAKER) (test No growth in 5 days code = 1095) The specimen volume collected for this blood culture was below the optimum (10 mL per bottle or 20 mL total). Use of lower volumes may adversely affect recovery and/or detection times of some organisms.POCT-GLUCOSE [id number] 13:41:35 Test Item Value Reference Range Interpretation Comments POC-GLUCOSE METER 99 mg/dL 70-110 : TESTED A T [facility] 6720 (BEAKER) (test code = [facility], 153) [address]: Vocational Counselor/Techni smiley ID = [id number] for Jean Marie posada, Donna BLOOD [id number] 13:01:43 Test Item Value Reference Range Interpretation Comments CULTURE (BEAKER) (test No growth in 5 days code = 1095) POCT-GLUCOSE [id number] 07:21:17 Test Item Value Reference Range Interpretation Comments POC-GLUCOSE METER 110 mg/dL 70-110 : TESTED A T [facility] 6720 (BEAKER) (test code = [facility] [place] [facility], 1538) [address]: Vocational Counselor/Techni smiley ID = [id number] for Teresa Rose BASIC METABOLIC [id number] 05:31:26 Test Item Value Reference Range Interpretation [...] not appl icable for dialysis patien ts Vocational Counselor ID - [id number] 05:31:26 Test Item Value Reference Range Interpretation Comments MAGNESIUM (BEAKER) (test code = 2.0 mg/dL 1.6-2.6 627) Vocational Counselor ID - [id number] 05:31:26 Test Item Value Reference Range Interpretation Comments PHOSPHORUS (BEAKER) (test code = 3.6 mg/dL 2.3-4.7 604) Vocational Counselor ID - MARCOCBC W/PLT COUNT & AUTO [id number] 04:56:52 Test Item Value Reference Range Interpretation [...] PERCENT (BEAKER) (test code = 2801) POCT-GLUCOSE [id number] 00:26:59 Test Item Value Reference Range Interpretation Comments POC-GLUCOSE METER 135 mg/dL 70-110 H : TESTED A T [facility] 6720 (BEAKER) (test code = [facility], 1538) [address]: Vocational Counselor/Techni smiley ID = [id number] for Teresa Rose POCT-GLUCOSE [id number] 17:22:27 Test Item Value Reference Range Interpretation Comments POC-GLUCOSE METER 127 mg/dL 70-110 H : TESTED A T [facility] 6720 (BEAKER) (test code = [facility], [facility]8) [address]: Vocational Counselor/Techni smiley ID = [id number] for Um eh, Akumbu POCT-GLUCOSE [id number] 17:20:21 Test Item Value Reference Range Interpretation Comments POC-GLUCOSE METER 23 mg/dL 70-110 LL : TESTED A T [facility] 6720 (BEAKER) (test code = [facility], 1538) [address]: Vocational Counselor/Techni smiley ID = [id number] for Umeh , Akumbu POCT-GLUCOSE [id number] 12:34:42 Test Item Value Reference Range Interpretation Comments POC-GLUCOSE METER 129 mg/dL 70-110 H : TESTED A T [facility] 6720 (BEAKER) (test code = [facility], [facility]8) [address]: Vocational Counselor/Techni smiley ID = [id number] for Um eh, [place]umb[place] [id number] 08:08:41 Test Item Value Reference Range Interpretation Comments MAGNESIUM (BEAKER) (test code = 1.9 mg/dL 1.6-2.6 627) Vocational Counselor ID - [id number] 08:08:41 Test Item Value Reference Range Interpretation Comments PHOSPHORUS (BEAKER) (test code = 3.5 mg/dL 2.3-4.7 604) Vocational Counselor ID - ADMINBASIC METABOLIC [id number] 08:08:40 Test Item Value Reference Range Interpretation [...] not appl icable for dialysis patien ts Vocational Counselor ID - ADMINPOCT-GLUCOSE [id number] 07:08:26 Test Item Value Reference Range Interpretation Comments POC-GLUCOSE METER 119 mg/dL 70-110 H : TESTED A T [facility] 6720 (BEAKER) (test code = AVIN[facility] [place] [facility], 1538) [address]: Vocational Counselor/Techni smiley ID = [id number] for Teresa Rose CBC W/PLT COUNT & AUTO [id number] 06:25:01 Test Item Value Reference Range Interpretation [...] PERCENT (BEAKER) (test code = 2801) POCT-GLUCOSE [id number] 23:32:08 Test Item Value Reference Range Interpretation Comments POC-GLUCOSE METER 97 mg/dL 70-110 : TESTED A Kaelyn [facility] 6720 (BEAKER) (test code = [facility], 1538) [address]: Vocational Counselor/Techni smiley ID = [id number] for Teresa Camejo POCT-GLUCOSE [id number] 17:52:25 Test Item Value Reference Range Interpretation Comments POC-GLUCOSE METER 121 mg/dL 70-110 H : TESTED A T [facility] 6720 (BEAKER) (test code = [facility], 1538) [address]: Vocational Counselor/Techni smiley ID = [id number] for An Donna lucas POCT-GLUCOSE [id number] 12:24:17 Test Item Value Reference Range Interpretation Comments POC-GLUCOSE METER 106 mg/dL 70-110 : TESTED A T [facility] 6720 (BEAKER) (test code = [facility], 153) [address]: Vocational Counselor/Techni smiley ID = [id number] for An Donna lucas VANCOMYCIN LEVEL, [id number] 10:00:44 Test Item Value Reference Range Interpretation Comments VANCOMYCIN TROUGH (BEAKER) (test 35.0 ug/mL 10.0-20.0 HH code = 522) Vocational Counselor ID - ADMINPOCT-GLUCOSE [id number] 06:04:34 Test Item Value Reference Range Interpretation Comments POC-GLUCOSE METER 98 mg/dL 70-110 : TESTED A T [facility] 6720 (BEAKER) (test code = [facility], 153) [address]: Vocational Counselor/Techni smiley ID = [id number] for Andi Warren [id number] 04:34:22 Test Item Value Reference Range Interpretation Comments PHOSPHORUS (BEAKER) (test code = 4.3 mg/dL 2.3-4.7 604) Vocational Counselor ID - mmBASIC METABOLIC [id number] 04:34:21 Test Item Value Reference Range Interpretation [...] not appl icable for dialysis patien ts Vocational Counselor ID - [id number] 04:34:21 Test Item Value Reference Range Interpretation Comments MAGNESIUM (BEAKER) (test code = 2.0 mg/dL 1.6-2.6 627) Vocational Counselor ID - mmCBC W/PLT COUNT & AUTO [id number] 04:15:17 Test Item Value Reference Range Interpretation [...] PERCENT (BEAKER) (test code = 2801) POCT-GLUCOSE [id number] 00:10:22 Test Item Value Reference Range Interpretation Comments POC-GLUCOSE METER 102 mg/dL 70-110 : TESTED A T [facility] 6720 (BEAKER) (test code [facility], = 1538) [address]: Vocational Counselor/Techni smiley ID = [id number] for Andi Warren BASIC METABOLIC [id number] 19:00:42 Test Item Value Reference Range Interpretation [...] not appl icable for dialysis patien ts Vocational Counselor ID - JSPOCT-GLUCOSE [id number] 17:28:38 Test Item Value Reference Range Interpretation Comments POC-GLUCOSE METER 122 mg/dL 70-110 H : TESTED A T [facility] 6720 (BEAKER) (test code = [facility], 1538) [address]: Vocational Counselor/Techni smiley ID = [id number] for An Candace lucasa POCT-GLUCOSE [id number] 12:36:44 Test Item Value Reference Range Interpretation Comments POC-GLUCOSE METER 110 mg/dL 70-110 : TESTED A T [facility] 6720 (BEAKER) (test code = [facility], 1538) [address]: Vocational Counselor/Techni smiley ID = [id number] for An Donna lucas [id number] 06:20:37 Test Item Value Reference Range Interpretation Comments MAGNESIUM (BEAKER) (test code = 2.2 mg/dL 1.6-2.6 627) Vocational Counselor ID - FRMVZKQEFERGGFY5416-68-18 06:20:37 Test Item Value Reference Range Interpretation Comments PHOSPHORUS (BEAKER) (test code = 3.9 mg/dL 2.3-4.7 604) Vocational Counselor ID - ADMINBASIC METABOLIC [id number] 06:20:36 Test Item Value Reference Range Interpretation [...] not appl icable for dialysis patien ts Vocational Counselor ID - ADMINPOCT-GLUCOSE [id number] 06:09:53 Test Item Value Reference Range Interpretation Comments POC-GLUCOSE METER 69 mg/dL 70-110 L : TESTED A T [facility] 6720 (BEAKER) (test code = [facility] [place] [facility], 1538) [address]: Vocational Counselor/Techni smiley ID = [id number] for Andi Warren CBC W/PLT COUNT & AUTO [id number] 05:15:05 Test Item Value Reference Range Interpretation [...] = 2801) XR abdomen / KUB 1 [id number] 21:59:17EXAM/TECHNIQUE: XR ABDOMEN/KUB 1 VIEW PORTABLE INDICATION: Confirm corpak placement COMPARISON: 11/05/2022. FINDINGS: Feeding tube terminates in the distal stomach. No dilated loops of largesmall bowel.No acute osseous process. Lung bases are clear.[facility] XR ABDOMEN/KUB 1 VIEW [id number] 21:59:17 [facility] 1975 Sex: FEXAM/TECHNIQUE: XR ABDOMEN/KUB 1 VIEW PORTABLEINDICATION: Confirm corpak placementCOMPARISON: 11/05/2022.FINDINGS: Feeding tube terminates in the distal stomach. No dilated loops of largesmall bowel. No acute osseous process. Lung bases are clear.IMPRESSION:Feeding tube terminates in the distal stomach.Electronically Signed By: Carlos Preciado11/07/2022 22:01 CDTWorkstation Name: [id number] METABOLIC [id number] 18:29:04 Test Item Value Reference Range Interpretation [...] not appl icable for dialysis patien ts Vocational Counselor ID - BSDrug screen, urine, oarefftgpetqh6854-02-80 08:47:31 Test Item Value Reference Range Interpretation Comments Scan Result (test see scanned report See scanned report. code = 2372477) SUE (test code = see scanned report SUE) [facility], [facility], [id number] 08:47:31 Test Item Value Reference Range Interpretation Comments Scan Result (test see scanned report See scanned report. code = 9963546) SUE (test code = see scanned report SUE) [facility], [id number] 08:47:31 Test Item Value Reference Range Interpretation Comments Scan Result (test see scanned report See scanned report. code = 7336948) SUE (test code = see scanned report SUE) [facility], [id number] 08:47:31 Test Item Value Reference Range Interpretation Comments Scan Result (test see scanned report See scanned report. code = 5517147) SUE (test code = see scanned report SUE) [facility], [id number] 08:47:31 Test Item Value Reference Range Interpretation Comments Scan Result (test see scanned report See scanned report. code = 3863305) SUE (test code = see scanned report SUE) [facility] UR[facility], [id number] 08:47:31 Test Item Value Reference Range Interpretation Comments SCAN RESULT (test see scanned report See scanned report. code = 7514551) see scanned reportPOCT-GLUCOSE [id number] 06:13:13 Test Item Value Reference Range Interpretation Comments POC-GLUCOSE METER 81 mg/dL 70-110 : [facility] (BEAKER) (test code = AVINASH [place], 1538) [address]: Vocational Counselor/Techni smiley ID = [id number] for Jessica Rodrigues [id number] 04:03:55 Test Item Value Reference Range Interpretation Comments PHOSPHORUS (BEAKER) (test code = 4.8 mg/dL 2.3-4.7 H 604) Vocational Counselor ID - EMBASIC METABOLIC [id number] 04:03:54 Test Item Value Reference Range Interpretation [...] not appl icable for dialysis patien ts Vocational Counselor ID - AIIKYRCJGFT3062-16-95 04:03:54 Test Item Value Reference Range Interpretation Comments MAGNESIUM (BEAKER) (test code = 2.4 mg/dL 1.6-2.6 627) Vocational Counselor ID - EMHIGH SENSITIVITY TROPONIN [id number] 03:58:57 Test Item Value Reference Range Interpretation Comments HIGH SENSITIVITY 165 pg/ml See_Comment H [Automated message] TROPONIN I (test code The sy stem which = [id number]) generated this result transmitted ref erence range: <=17. Th e reference range was not used to int erpret this result as normal/abnormal . Vocational Counselor ID - EMThe ADJUNCT FACULTY FOR MEDICAL TERMINOLOGY STAT High Sensitivity Troponin-I results should be used in conjunctionwith other diagnostic information such as ECG, clinical observations and information, and patient symptoms to aid in the diagnosis of ME.CBC W/PLT COUNT & AUTO [id number] 03:38:52 Test Item Value Reference Range Interpretation [...] PERCENT (BEAKER) (test code = 2801) POCT-GLUCOSE [id number] 00:25:14 Test Item Value Reference Range Interpretation Comments POC-GLUCOSE METER 88 mg/dL 70-110 : [facility] (test code = AVINASH Mona [facility], 1538) [address]: Vocational Counselor/Techni smiley ID = [id number] for Jessica Rodrigues HIGH SENSITIVITY TROPONIN [id number] 22:04:24 Test Item Value Reference Range Interpretation Comments HIGH SENSITIVITY 193 pg/ml See_Comment H [Automated message] TROPONIN I (test code The sy stem which = [id number]) generated this result transmitted ref erence range: <=17. Th e reference range was not used to int erpret this result as normal/abnormal . Vocational Counselor ID - DBThe ADJUNCT FACULTY FOR MEDICAL TERMINOLOGY STAT High Sensitivity Troponin-I results should be used in conjunctionwith other diagnostic information such as ECG, clinical observations and information, and patient symptoms to aid in the diagnosis of ME.Urinalysis w/Microscopic + Reflex to [id number] 15:49:18 Test Item Value Reference Range Interpretation Comments Color, UA (test code Yellow = 5778-6) Clarity, UA (test Cloudy code = 5767-9) Specific [place], UA 1.021 1.001-1.035 (test code = 5811-5) pH, UA (test code = 6.0 5.0-8.0 5803-2) Protein, UA (test 70 mg/dL Negative A code = 67640-0) Glucose, UA (test Negative Negative code = 365) Ketones, UA (test Negative Negative code = 2514-8) Bilirubin, UA (test Negative Negative code = 71473-0) Blood, UA (test code Moderate Negative A = 72714-3) Nitrite, UA (test Negative Negative code = 5802-4) Leukocytes, UA (test Trace Negative A code = 5799-2) Urobilinogen, UA 0.2 0.2-1.0 (test code = 73937-9) RBC, UA (test code = 23 See_Comment [Autom ated 34381-8) message] The system which generated this result [...] 6 See_Comment [Automate d (test code = 47890-5) messag e] The system which generated this result transmit markie reference range : /HPF. The reference range was not used to interpret this result as normal/abnormal . Hyaline Casts, UA 1 See_Comment [Automate d (test code = 54144-9) messag e] The system which generated this result transmit markie reference range : /LPF. The reference range was not used to interpret this result as normal/abnormal . Specimen Source (test code = 2795) SUE (test code = SUE) Vocational Counselor ID - [auto]Vocational Counselor ID - bs Lab Interpretation Abnormal (test code = 93045-7) [facility] Reflex to Culture 2022-11-06 15:49:18 Test Item Value Reference Range Interpretation Comments Color, UA (test code Yellow = 5778-6) Clarity, UA (test Cloudy code = 5767-9) Specific [place], UA 1.021 1.001-1.035 (test code = 5811-5) pH, UA (test code = 6.0 5.0-8.0 5803-2) Protein, UA (test 70 mg/dL Negative A code = 25147-2) Glucose, UA (test Negative Negative code = 365) Ketones, UA (test Negative Negative code = 2514-8) Bilirubin, UA (test Negative Negative code = 62938-9) Blood, UA (test code Moderate Negative A = 80780-9) Nitrite, UA (test Negative Negative code = 5802-4) Leukocytes, UA (test Trace Negative A code = 5799-2) Urobilinogen, UA 0.2 0.2-1.0 (test code = 04837-9) RBC, UA (test code = 23 See_Comment [Autom ated 12190-1) message] The system which generated this result [...] 6 See_Comment [Automate d (test code = 34193-1) messag e] The system which generated this result transmit markie reference range : /HPF. The reference range was not used to interpret this result as normal/abnormal . Hyaline Casts, UA 1 See_Comment [Automate d (test code = 24013-2) messag e] The system which generated this result transmit markie reference range : /LPF. The reference range was not used to interpret this result as normal/abnormal . Specimen Source (test code = 2795) SUE (test code = SUE) Vocational Counselor ID - [auto]Vocational Counselor ID - bs Lab Interpretation Abnormal (test code = 24116-0) [facility] Reflex to Culture 2022-11-06 15:49:18 Test Item Value Reference Range Interpretation Comments Color, UA (test code Yellow = 5778-6) Clarity, UA (test Cloudy code = 5767-9) Specific [place], UA 1.021 1.001-1.035 (test code = 5811-5) pH, UA (test code = 6.0 5.0-8.0 5803-2) Protein, UA (test 70 mg/dL Negative A code = 47157-6) Glucose, UA (test Negative Negative code = 365) Ketones, UA (test Negative Negative code = 2514-8) Bilirubin, UA (test Negative Negative code = 53110-0) Blood, UA (test code Moderate Negative A = 40686-4) Nitrite, UA (test Negative Negative code = 5802-4) Leukocytes, UA (test Trace Negative A code = 5799-2) Urobilinogen, UA 0.2 0.2-1.0 (test code = 39685-0) RBC, UA (test code = 23 See_Comment [Autom ated 62858-9) message] The system which generated this result [...] 6 See_Comment [Automate d (test code = 47867-9) messag e] The system which generated this result transmit markie reference range : /HPF. The reference range was not used to interpret this result as normal/abnormal . Hyaline Casts, UA 1 See_Comment [Automate d (test code = 99190-4) messag e] The system which generated this result transmit markie reference range : /LPF. The reference range was not used to interpret this result as normal/abnormal . Specimen Source (test code = 2795) SUE (test code = SUE) Vocational Counselor ID - [auto]Vocational Counselor ID - bs Lab Interpretation Abnormal (test code = 11474-1) [facility] Reflex to Culture 2022-11-06 15:49:18 Test Item Value Reference Range Interpretation Comments Color, UA (test code Yellow = 5778-6) Clarity, UA (test Cloudy code = 5767-9) Specific [place], UA 1.021 1.001-1.035 (test code = 5811-5) pH, UA (test code = 6.0 5.0-8.0 5803-2) Protein, UA (test 70 mg/dL Negative A code = 97264-8) Glucose, UA (test Negative Negative code = 365) Ketones, UA (test Negative Negative code = 2514-8) Bilirubin, UA (test Negative Negative code = 51693-3) Blood, UA (test code Moderate Negative A = 46651-9) Nitrite, UA (test Negative Negative code = 5802-4) Leukocytes, UA (test Trace Negative A code = 5799-2) Urobilinogen, UA 0.2 0.2-1.0 (test code = 09044-8) RBC, UA (test code = 23 See_Comment [Autom ated 34389-7) message] The system which generated this result [...] 6 See_Comment [Automate d (test code = 47467-7) messag e] The system which generated this result transmit markie reference range : /HPF. The reference range was not used to interpret this result as normal/abnormal . Hyaline Casts, UA 1 See_Comment [Automate d (test code = 90716-7) messag e] The system which generated this result transmit markie reference range : /LPF. The reference range was not used to interpret this result as normal/abnormal . Specimen Source (test code = 2795) SUE (test code = SUE) Vocational Counselor ID - [auto]Vocational Counselor ID - bs Lab Interpretation Abnormal (test code = 84629-7) [facility] + Reflex to Culture 2022-11-06 15:49:18 Test Item Value Reference Range Interpretation Comments Color, UA (test code Yellow = 5778-6) Clarity, UA (test Cloudy code = 5767-9) Specific [place], UA 1.021 1.001-1.035 (test code = 5811-5) pH, UA (test code = 6.0 5.0-8.0 5803-2) Protein, UA (test 70 mg/dL Negative A code = 56088-7) Glucose, UA (test Negative Negative code = 365) Ketones, UA (test Negative Negative code = 2514-8) Bilirubin, UA (test Negative Negative code = 60205-0) Blood, UA (test code Moderate Negative A = 26092-2) Nitrite, UA (test Negative Negative code = 5802-4) Leukocytes, UA (test Trace Negative A code = 5799-2) Urobilinogen, UA 0.2 0.2-1.0 (test code = 15599-2) RBC, UA (test code = 23 See_Comment [Autom ated 57983-6) message] The system which generated this result [...] 6 See_Comment [Automate d (test code = 60586-7) messag e] The system which generated this result transmit markie reference range : /HPF. The reference range was not used to interpret this result as normal/abnormal . Hyaline Casts, UA 1 See_Comment [Automate d (test code = 32332-1) messag e] The system which generated this result transmit markie reference range : /LPF. The reference range was not used to interpret this result as normal/abnormal . Specimen Source (test code = 2795) SUE (test code = SUE) Vocational Counselor ID - [auto]Vocational Counselor ID - bs Lab Interpretation Abnormal (test code = 00487-2) [facility] URINE [id number] 15:49:18 Test Item Value Reference Range Interpretation [...] /LPF 514) SOURCE(BEAKER) (test code = 2795) Vocational Counselor ID - [auto]Vocational Counselor ID - bsPT/KKMS0886-70-15 15:35:00 Test Item Value Reference Range Interpretation [...] patients with mechanical heart valves.HIGH SENSITIVITY TROPONIN [id number] 15:30:15 Test Item Value Reference Range Interpretation Comments HIGH SENSITIVITY 264 pg/ml See_Comment H [Automated message] TROPONIN I (test code The sy stem which = [id number]) generated this result transmitted ref erence range: <=17. Th e reference range was not used to int erpret this result as normal/abnormal . Vocational Counselor ID - ADMINThe ADJUNCT FACULTY FOR MEDICAL TERMINOLOGY STAT High Sensitivity Troponin-I results should be used in conjunction with other diagnostic information such as ECG, clinical observations and information, and patientsymptoms to aid in the diagnosis of ME. Blood gas, [id number] 15:09:57 Test Item Value Reference Range Interpretation Comments pH, Arterial (test code 7.40 7.35-7.45 = 2744-1) pCO2, Arterial (test 44 See_Comment [Autom ated message] code = 2019-8) The system [employer] generated this result transmit markie reference range : 35 - 45 mm Hg. The reference range was not used to interpret this result as normal/abnormal . pO2, Arterial (test 195 See_Comment H [Automa markie message] code = 2703-7) The system [employer] generated this result transmit markie reference range [...] 36.0 Lab Interpretation Abnormal (test code = 39160-3) [facility], [id number] 15:09:57 Test Item Value Reference Range Interpretation Comments pH, Arterial (test code 7.40 7.35-7.45 = 2744-1) pCO2, Arterial (test 44 See_Comment [Autom ated message] code = 2019-) The system [employer] generated this result transmit markie reference range : 35 - 45 mm Hg. The reference range was not used to interpret this result as normal/abnormal . pO2, Arterial (test 195 See_Comment H [Automa markie message] code = 2703-7) The system [facility] generated this result transmit markie reference [...] 36.0 Lab Interpretation Abnormal (test code = 09967-5) [facility], [id number] 15:09:57 Test Item Value Reference Range Interpretation Comments pH, Arterial (test code 7.40 7.35-7.45 = 2744-1) pCO2, Arterial (test 44 See_Comment [Autom ated message] code = 2019-) The system [employer] generated this result transmit markie reference range : 35 - 45 mm Hg. The reference range was not used to interpret this result as normal/abnormal . pO2, Arterial (test 195 See_Comment H [Automa markie message] code = 2703-7) The system [employer] generated this result transmit markie reference range [...] 36.0 Lab Interpretation Abnormal (test code = 50414-1) [facility] gas, wuczlxgb3875-08-11 15:09:57 Test Item Value Reference Range Interpretation Comments pH, Arterial (test code 7.40 7.35-7.45 = 2744-1) pCO2, Arterial (test 44 See_Comment [Autom ated message] code = 2018-10) The system [employer] generated this result transmit markie reference range : 35 - 45 mm Hg. The reference range was not used to interpret this result as normal/abnormal . pO2, Arterial (test 195 See_Comment H [Automa markie message] code = 2703-7) The system [employer] generated this result transmit markie reference range [...] 36.0 Lab Interpretation Abnormal (test code = 84286-7) [facility], [id number] 15:09:57 Test Item Value Reference Range Interpretation Comments pH, Arterial (test code 7.40 7.35-7.45 = 2744-1) pCO2, Arterial (test 44 See_Comment [Autom ated message] code = 2019-8) The system [facility] generated this result transmit markie reference range : 35 - 45 mm Hg. The reference range was not used to interpret this result as normal/abnormal . pO2, Arterial (test 195 See_Comment H [Automa markie message] code = 2703-7) The system [employer] generated this result transmit markie reference range [...] 36.0 Lab Interpretation Abnormal (test code = 57844-0) [facility] GAS, [id number] 15:09:57 Test Item Value Reference Range Interpretation [...] (test code = 1819) 36.0 ECG 12 [id number] 13:44:42Ventricular Rate 62 BPMAtrial Rate 62 BPMP-R Interval 180 msQRS Duration 90 msQ-T Interval 454 msQTCCalculation(Bazett) 460 msP [place] 19 degreesR [place] 64 degreesT [place] 254 degrees Normal sinus rhythmPos sible Left atrial enlargementLeft ventricular hypertrophy with repolarization abnormalityAbnormal ECGWhen compared with ECG of 01-AUG-2022 10:14,ST now depressed in Inferior leadsT wave inversion more evident in Inferior leads Confirmed by MD CHARLES YOCHAI ([id number]) on 11/06/2022 1:44:41 [facility] 12 [id number] 13:44:42Ventricular Rate 62 BPMAtrial Rate 62 BPMP-R Interval 180 msQRS Duration 90 msQ-T Interval 454 msQTC Calculation(Bazett) 460 msP [place] 19 degreesR [place] 64 degreesT [place] 254 degrees Normal sinus rhythmPossible Left atrial enlargementLeft ventricular hypertrophy with repolarization abnormalityAbnormal ECGWhen compared with ECG of 01-AUG-2022 10:14,ST now depressed in Inferior leadsT wave inversion more evident in Inferior leads Confirmed by MD CHARLES YOCHAI ([id number]) on 11/06/2022 1:44:[address]2023-08-22 13:44:42Ventricular Rate 62 BPMAtrial Rate 62 BPMP-R Interval 180 msQRS Duration 90 msQ-T Interval 454 msQTC Calculation(Bazett) 460 msP [place] 19 degreesR [place] 64 degreesT [place] 254 degrees Normal sinus rhythmPossible Left atrial enlargementLeft ventricular hypertrophy with repolarization abnormalityAbnormal ECGWhen compared with ECG of 01-AUG-2022 10:14,ST now depressed in Inferior leadsT wave inversion more evident in Inferior leads Confirmed by MD CHARLES YOCHAI (1903) on 11/06/2022 1:44:41 PM [place] [address] twxk6000-23-28 13:44:42Ventricular Rate 62 BPMAtrial Rate 62 BPMP-R Interval 180 msQRS Duration 90 msQ-T Interval 454 msQTC Calculation(Bazett) 460 msP [place] 19 degreesR [place] 64 degreesT [place] 254 degrees Normal sinus rhythmPossible Left atrial enlargementLeft ventricular hypertrophy with repolarization abnormalityAbnormal ECGWhen compared with ECG of 01-AUG-2022 10:14,ST now depressed in Inferior leadsT wave inversion more evident in Inferior leads Confirmed by MD CHARLES YOCHAI (1903) on 11/06/2022 1:44:41 PM [facility] 12 [id number] 13:44:42Ventricular Rate 62 BPMAtrial Rate 62 BPMP-R Interval 180 msQRS Duration 90 msQ-T Interval 454 msQTC Calculation(Bazett) 460 msP [place] 19 degreesR [place] 64 degreesT [place] 254 degrees Normal sinus rhythmPossible Left atrial enlargementLeft ventricular hypertrophy with repolarization abnormalityAbnormal ECGWhen compared with ECG of 01-AUG-2022 10:14,ST now depressed in Inferior leadsT wave inversion more evident in Inferior leads Confirmed by MD CHARLES YOCHAI (1903) on 11/06/2022 1:44:41 PM [facility] 1 view portable / [id number] 13:38:36 Chest, 1 view, 11/06/2022 11:58 AM. History: r/o aspiration pneumonia. Comparison: 10/30/2022. Discussion: The cardiac silhouette is prominent but stable. Lungs areclear. There is no pneumothorax. Feeding tube terminates below thehemidiaphragm. Right IJ central line is no longer present. There are noacute osseous findings.[facility] VIEW PORTABLE / BEDSIDE 2022-11-06 13:38:36 [facility] 1975 Sex: FChest, 1 view, 11/06/2022 11:58 AM.History: r/o aspiration pneumonia.Comparison: 10/30/2022.Discussion: Thecardiac silhouette is prominent but stable. Lungs areclear. There is no pneumothorax. Feeding tube terminates below thehemidiaphragm. Right IJ central line is no longer present. There are noacute osseous findings.IMPRESSION:No acute pulmonary findings.Electronically Signed By: Saeg Zuly11/06/2022 13:40 CDTWorkstation Name: [id number] 2022-11-06 11:32:33 Test Item Value Reference Range Interpretation Comments PROCALCITONIN (BEAKER) (test code 0.31 ng/mL <0.05 H = 3036) SEPSIS RISK (ng/mL)Low: 0.05-0.50Intermediate: 0.51-2.00High: >=2.01HIGH SENSITIVITY TROPONIN [id number] 11:27:53 Test Item Value Reference Range Interpretation Comments HIGH SENSITIVITY 344 pg/ml See_Comment H [Automated message] TROPONIN I (test code The sy stem which = [id number]) generated this result transmitted ref erence range: <=17. Th e reference range was not used to int erpret this result as normal/abnormal . Vocational Counselor ID - DAMIÁN WThe ADJUNCT FACULTY FOR MEDICAL TERMINOLOGY STAT High Sensitivity Troponin-I results should be used in conjunction with other diagnostic information such as ECG, clinical observations and information, and patient symptoms to aid in the diagnosis of ME.LACTIC ACID, [id number] 11:07:17 Test Item Value Reference Range Interpretation Comments LACTATE BLOOD VENOUS (2) (BEAKER) 0.80 mmol/L 0.50-2.00 (test code = 2872) Vocational Counselor ID - DAMIÁN WCT BRAIN WITHOUT IV [id number] 10:59:53 [facility] 1975 Sex: F [...] Signed By: Alexandra Liang11/06/2022 11:01 CDTWorkstation Name: [id number] [id number] 10:57:58 Test Item Value Reference Range Interpretation Comments POC-Glucose (test code = 117 mg/dL 70-110 H : T ESTED AT [facility] 1855) [address] [facility], 770 30: Vocational Counselor/Techni smiley ID = [id number] for RACELIS, SHELBY INE Lab Interpretation (test Abnormal code = 08010-2) [facility] [place][id number] 10:57:58 Test Item Value Reference Range Interpretation Comments POC-Hematocrit (test code 34 % 36-45 L : = 1857) Vocational Counselor/Techni smiley ID = [id number] for RACELIS, SHELBY INE Lab Interpretation (test Abnormal code = 49872-4) [facility] [id number] 10:57:58 Test Item Value Reference Range Interpretation Comments POC-Glucose (test code = 117 mg/dL 70-110 H : T ESTED AT [facility] 1855) [address] [facility], 7[address] 30: Vocational Counselor/Techni smiley ID = [id number] for RACELIS, SHELBY INE Lab Interpretation (test Abnormal code = 97362-7) [facility] [place][id number] 10:57:58 Test Item Value Reference Range Interpretation Comments POC-Hematocrit (test code 34 % 36-45 L : = 1857) Vocational Counselor/Techni smiley ID = [id number] for RACELIS, SHELBY INE Lab Interpretation (test Abnormal code = 80962-6) [facility] [id number] 10:57:58 Test Item Value Reference Range Interpretation Comments POC-Glucose (test code = 117 mg/dL 70-110 H : T ESTED AT [facility] 1855) [address] [place] [address], 770 30: Vocational Counselor/Techni smiley ID = [id number] for RACELIS, SHELBY INE Lab Interpretation (test Abnormal code = 12133-4) [facility] [place][id number] 10:57:58 Test Item Value Reference Range Interpretation Comments POC-Hematocrit (test code 34 % 36-45 L : = 1857) Vocational Counselor/Techni smiley ID = [id number] for RACELIS, SHELBY INE Lab Interpretation (test Abnormal code = 44713-8) [facility] Fvviqbj5824-55-64 10:57:58 Test Item Value Reference Range Interpretation Comments POC-Glucose (test code = 117 mg/dL 70-110 H : T ESTED AT [facility] 1855) [address] [place] [address], 770 30: Vocational Counselor/Techni smiley ID = [id number] for RACELIS, SHELBY INE Lab Interpretation (test Abnormal code = 29768-4) [facility] [place][id number] 10:57:58 Test Item Value Reference Range Interpretation Comments POC-Hematocrit (test code 34 % 36-45 L : = 1857) Vocational Counselor/Techni smiley ID = [id number] for RACELIS, SHELBY INE Lab Interpretation (test Abnormal code = 73789-2) [facility] [id number] 10:57:58 Test Item Value Reference Range Interpretation Comments POC-Glucose (test code = 117 mg/dL 70-110 H : T ESTED AT [facility] 1855) [address] [facility], 770 30: Vocational Counselor/Techni smiley ID = [id number] for RACELIS, SHELBY INE Lab Interpretation (test Abnormal code = 38894-3) [facility] [place][id number] 10:57:58 Test Item Value Reference Range Interpretation Comments POC-Hematocrit (test code 34 % 36-45 L : = 1857) Vocational Counselor/Techni smiley ID = [id number] for RACELIS, SHELBY INE Lab Interpretation (test Abnormal code = 10426-3) [facility] [place][id number] 10:57:58 Test Item Value Reference Range Interpretation Comments POC-HEMATOCRIT 34 % 36-45 L : Vocational Counselor/Te chnician ID = (BEAKER) (test code = 743726 for RACELIS, 1857) SAMY [id number]-[id number] 10:57:58 Test Item Value Reference Range Interpretation Comments POC-GLUCOSE (BEAKER) 117 mg/dL 70-110 H : TESTE D AT [facility] 6720 (test code = 1855) [facility], [address]: Vocational Counselor/Techni smiley ID = [id number] for RACE LIS, SAMY CJL-[id number] 10:57:57 Test Item Value Reference Range Interpretation Comments POC-Potassium (test code 5.5 meq/L 3.6-5.5 : T ESTED AT [facility] = 1540) 6720 [facility] [place], [address]: Vocational Counselor/Techni smiley ID = [id number] for RACELIS, SHELBY INE Lab Interpretation (test Normal code = 04008-3) [facility] [place][id number] 10:57:57 Test Item Value Reference Range Interpretation Comments POC-Hemoglobin (test code 11.6 g/dL 12.0-15.0 L : TESTED AT [facility] = 1856) [address] [place] [address], [address]: Vocational Counselor/Techni smiley ID = [id number] for RACELIS, SHELBY INE Lab Interpretation (test Abnormal code = 34570-2) [facility]-Spwwwjhus7192-19-39 10:57:57 Test Item Value Reference Range Interpretation Comments POC-Potassium (test code 5.5 meq/L 3.6-5.5 : T ESTED AT [facility] = 1540) [address] [place] [address], [address]: Vocational Counselor/Techni smiley ID = [id number] for RACELIS, SHELBY INE Lab Interpretation (test Normal code = 39175-2) [facility] [place][id number] 10:57:57 Test Item Value Reference Range Interpretation Comments POC-Hemoglobin (test code 11.6 g/dL 12.0-15.0 L : TESTED AT [facility] = 1856) [address] [place] [address], [address]: Vocational Counselor/Techni smiley ID = [id number] for RACELIS, SHELBY INE Lab Interpretation (test Abnormal code = 17454-1) [facility]-Jrlseoxys7465-68-82 10:57:57 Test Item Value Reference Range Interpretation Comments POC-Potassium (test code 5.5 meq/L 3.6-5.5 : T ESTED AT [facility] = 1540) [address] [place] [address], [address]: Vocational Counselor/Techni smiley ID = [id number] for RACELIS, SHELBY INE Lab Interpretation (test Normal code = 59325-6) [facility] [place][id number] 10:57:57 Test Item Value Reference Range Interpretation Comments POC-Hemoglobin (test code 11.6 g/dL 12.0-15.0 L : TESTED AT [facility] = 1856) [address] [place] [address], [address] 30: Vocational Counselor/Techni smiley ID = [id number] for RACELIS, SHELBY INE Lab Interpretation (test Abnormal code = 88589-5) [facility]-Sopfthlmm4766-17-16 10:57:57 Test Item Value Reference Range Interpretation Comments POC-Potassium (test code 5.5 meq/L 3.6-5.5 : T ESTED AT [facility] = 1540) [address] [place] [address], [address]: Vocational Counselor/Techni smiley ID = [id number] for RACELIS, SHELBY INE Lab Interpretation (test Normal code = 64555-2) [facility] [place]VLFVMQZBZO2602-29-68 10:57:57 Test Item Value Reference Range Interpretation Comments POC-Hemoglobin (test code 11.6 g/dL 12.0-15.0 L : TESTED AT [facility] = 1856) [address] [place] [address], [address]: Vocational Counselor/Techni smiley ID = [id number] for RACELIS, SHELBY INE Lab Interpretation (test Abnormal code = 67603-7) [facility]-Cplcwdswh7779-86-15 10:57:57 Test Item Value Reference Range Interpretation Comments POC-Potassium (test code 5.5 meq/L 3.6-5.5 : T ESTED AT [facility] = 1540) [address] [place] [address], [address]: Vocational Counselor/Techni smiley ID = [id number] for RACELIS, SHELBY INE Lab Interpretation (test Normal code = 85508-8) [facility]LNIKVLIBVZ7340-71-22 10:57:57 Test Item Value Reference Range Interpretation Comments POC-Hemoglobin (test code 11.6 g/dL 12.0-15.0 L : TESTED AT [facility] = 1856) [address] [place] [address], [address]: Vocational Counselor/Techni smiley ID = [id number] for RACELIS, SHELBY INE Lab Interpretation (test Abnormal code = 85445-6) [facility] [place][id number] 10:57:57 Test Item Value Reference Range Interpretation Comments POC-POTASSIUM 5.5 meq/L 3.6-5.5 : TESTED AT [facility] 6720 (BEAKER) (test code [facility], = 1540) [address]: Vocational Counselor/Techni smiley ID = [id number] for RACE LIS, SAMY BZBL-[id number] 10:57:57 Test Item Value Reference Range Interpretation Comments POC-HEMOGLOBIN 11.6 g/dL 12.0-15.0 L : TESTED AT [facility] 6720 (BEAKER) (test code [facility], = 1856) [address]: Vocational Counselor/Techni smiley ID = [id number] for RACE LIS, SAMY EHT-Ixrmfn4206-01-22 10:57:52 Test Item Value Reference Range Interpretation Comments POC-Sodium (test code = 142 meq/L 135-148 : TE STED AT [facility] 1542) [address] [place] [address], [address]: Vocational Counselor/Techni smiley ID = [id number] for RACELIS, SHELBY INE Lab Interpretation (test Normal code = 67964-5) [facility]-Jelcni0477-79-99 10:57:52 Test Item Value Reference Range Interpretation Comments POC-Sodium (test code = 142 meq/L 135-148 : [facility] [address] [place] [address], [address]: Vocational Counselor/Techni smiley ID = [id number] for RACELIS, SHELBY INE Lab Interpretation (test Normal code = 84338-4) [facility]-Citwag7776-62-60 10:57:52 Test Item Value Reference Range Interpretation Comments POC-Sodium (test code = 142 meq/L 135-148 : [facility] [address] [place] [address], [facility] 30: Vocational Counselor/Techni smiley ID = [id number] for RACELIS, SHELBY INE Lab Interpretation (test Normal code = 19667-7) [facility]-Avfrct3626-31-01 10:57:52 Test Item Value Reference Range Interpretation Comments POC-Sodium (test code = 142 meq/L 135-148 : [facility] [address] [place] [address], [facility] 30: Vocational Counselor/Techni smiley ID = [id number] for RACELIS, SHELBY INE Lab Interpretation (test Normal code = 66215-8) [facility]-Lxxvzi8047-49-04 10:57:52 Test Item Value Reference Range Interpretation Comments POC-Sodium (test code = 142 meq/L 135-148 : [facility] [address] [place] [address], [facility] 30: Vocational Counselor/Techni smiley ID = [id number] for RACELIS, SHELBY INE Lab Interpretation (test Normal code = 26574-5) [id number] 10:57:52 Test Item Value Reference Range Interpretation Comments POC-SODIUM (BEAKER) 142 meq/L 135-148 : TESTED AT [facility] 6720 (test code = 1542) [place], [address]: Vocational Counselor/Techni smiley ID = [id number] for SHELBY DAVISINE POC-Blood gases, xhcepinx2544-95-48 10:57:51 Test Item Value Reference Range Interpretation [...] tomated message] code = 1838) The system Sample6 generated this result transmit markie reference range : 80.0 - 90.0 mm Hg. The reference r elizabeth was not used to interpret this result as normal/abnormal . SO2, Arterial-POC (test 35.0 % 96.0-97.0 L code = 1839) HCO3, Arterilal-POC 32.6 meq/L 21.0-29.0 H (test code = 1840) BE, Arterial-POC (test 7.0 meq/L -2.0-3.0 H : LAISHA MARKIE AT [facility] code = 1841) [address] [place], [address]: Vocational Counselor/Techni smiley ID = [id number] for DWIGHTSHELBY Vitale DORENE Lab Interpretation Abnormal (test code = 33509-9) [facility], ruztjfga3566-12-56 10:57:51 Test Item Value Reference Range Interpretation [...] tomated message] code = 1838) The system Sample6 generated this result transmit markie reference range : 80.0 - 90.0 mm Hg. The reference r elizabeth was not used to interpret this result as normal/abnormal . SO2, Arterial-POC (test 35.0 % 96.0-97.0 L code = 1839) HCO3, Arterilal-POC 32.6 meq/L 21.0-29.0 H (test code = 1840) BE, Arterial-POC (test 7.0 meq/L -2.0-3.0 H : LAISHA MARKIE AT [facility] code = 1841) 6720 [facility] [place] [place], [address]: Vocational Counselor/Techni smiley ID = [id number] for SHELBY GONZALEZ DORENE Lab Interpretation Abnormal (test code = 68532-1) [facility]-Blood gases, sqxfyqae0123-44-94 10:57:51 Test Item Value Reference Range Interpretation [...] tomated message] code = 1838) The system Sample6 generated this result transmit markie reference range : 80.0 - 90.0 mm Hg. The reference r elizabeth was not used to interpret this result as normal/abnormal . SO2, Arterial-POC (test 35.0 % 96.0-97.0 L code = 1839) HCO3, Arterilal-POC 32.6 meq/L 21.0-29.0 H (test code = 1840) BE, Arterial-POC (test 7.0 meq/L -2.0-3.0 H : LAISHA MARKIE AT [facility] code = 1841) 6720 [facility], [address]: Vocational Counselor/Techni smiley ID = [id number] for RACELIS, SHELBY INE Lab Interpretation Abnormal (test code = 12135-3) [facility]-Blood gases, kxvgfgcs0360-93-49 10:57:51 Test Item Value Reference Range Interpretation [...] tomated message] code = 1838) The system [employer] h generated this result transmit markie reference range : 80.0 - 90.0 mm Hg. The reference r elizabeth was not used to interpret this result as normal/abnormal . SO2, Arterial-POC (test 35.0 % 96.0-97.0 L code = 1839) HCO3, Arterilal-POC 32.6 meq/L 21.0-29.0 H (test code = 1840) BE, Arterial-POC (test 7.0 meq/L -2.0-3.0 H : LAISHA MARKIE AT [facility] code = 1841) 6720 [facility] [place] [place], [address]: Vocational Counselor/Techni smiley ID = [id number] for RACELIS, SHELBY INE Lab Interpretation Abnormal (test code = 17596-1) [facility]-Blood gases, ktudohcb3167-69-98 10:57:51 Test Item Value Reference Range Interpretation [...] tomated message] code = 1838) The system [employer] h generated this result transmit markie reference range : 80.0 - 90.0 mm Hg. The reference r elizabeth was not used to interpret this result as normal/abnormal . SO2, Arterial-POC (test 35.0 % 96.0-97.0 L code = 1839) HCO3, Arterilal-POC 32.6 meq/L 21.0-29.0 H (test code = 1840) BE, Arterial-POC (test 7.0 meq/L -2.0-3.0 H : LAISHA MARKIE AT [facility] code = 1841) [address] [place], [address]: Vocational Counselor/Techni smiley ID = [id number] for SHELBY GONZALEZ Lab Interpretation Abnormal (test code = 38852-8) [facility] [place]BLO[place] GASES, [id number] 10:57:51 Test Item Value Reference Range Interpretation [...] 1838) SO2, ARTERIAL-POC 35.0 % 96.0-97.0 L (AKER) (test code = 1839) HCO3, ARTERIAL-POC 32.6 meq/L 21.0-29.0 H (AKER) (test code = 1840) BASE EXCESS, 7.0 meq/L -2.0-3.0 H : TESTED AT [facility] 6720 ARTERIAL-POC [facility], ([facility]) (test code [address]: = 1841) Vocational Counselor/Techni smiley ID = [id number] for SAMY DAVIS POCT-GLUCOSE [id number] 10:21:20 Test Item Value Reference Range Interpretation Comments POC-GLUCOSE METER 117 mg/dL 70-110 H : TESTED A T [facility] 6720 ([facility]) (test code = [facility], 1538) [address]: Vocational Counselor/Techni smiley ID = [id number] for TRACEY MANDA VAZQUEZ CT brain without IV kkzspfll4132-25-57 09:31:[address] BRAIN WITHOUT IV [...] within normal limits. No obstructive paranasal sinus disease.[facility] [id number] 05:45:28 Test Item Value Reference Range Interpretation Comments POC-GLUCOSE METER 116 mg/dL 70-110 H : TESTED A T [facility] 6720 ([facility]) (test code = [facility], 1538) [address]: Vocational Counselor/Techni smiley ID = [id number] for Teresa Rose BASIC METABOLIC [id number] 05:42:31 Test Item Value Reference Range Interpretation [...] not appl icable for dialysis patien ts Vocational Counselor ID - [id number] 05:40:46 Test Item Value Reference Range Interpretation Comments MAGNESIUM (BEAKER) (test code = 2.9 mg/dL 1.6-2.6 H 627) Vocational Counselor ID - PDNGVOKOPLMJLPG5035-29-22 05:40:46 Test Item Value Reference Range Interpretation Comments PHOSPHORUS (BEAKER) (test code = 6.5 mg/dL 2.3-4.7 H 604) Vocational Counselor ID - ADMINCBC W/PLT COUNT & AUTO [id number] 05:38:35 Test Item Value Reference Range Interpretation [...] PERCENT (BEAKER) (test code = 2801) POCT-GLUCOSE [id number] 23:35:25 Test Item Value Reference Range Interpretation Comments POC-GLUCOSE METER 135 mg/dL 70-110 H : TESTED A T [facility] 6720 (BEAKER) (test code = AVINASH Dunn [facility], 1538) [address]: Vocational Counselor/Techni smiley ID = [id number] for Teresa Rose POCT-GLUCOSE [id number] 17:28:48 Test Item Value Reference Range Interpretation Comments POC-GLUCOSE METER 101 mg/dL 70-110 : TESTED A T [facility] 6720 (BEAKER) (test code = AVINASH Dunn [facility], 1538) [address]: Vocational Counselor/Techni smiley ID = [id number] for CIRA HUMPHREY BLOOD [id number] 17:00:30 Test Item Value Reference Range Interpretation Comments CULTURE (BEAKER) (test No growth in 5 days code = 1095) BLOOD [id number] 17:00:30 Test Item Value Reference Range Interpretation Comments CULTURE (BEAKER) (test No growth in 5 days code = 1095) XR ABDOMEN/KUB 1 VIEW [id number] 14:17:[facility] 1975 Sex: FXR ABDOMEN/KUB 1 VIEW PORTABLETECHNIQUE: Supine radiograph(s) of the abdomen and pelvis.HISTORY: corpak placementCOMPARISON: 12/04/2022IMPRESSION:Lines and tubes: Enteric tube is seen with tip in the stomachElectronically Signed By: Sarah Carrera11/05/2022 14:19 CDTWorkstation Name: [id number] 12:53:33 Test Item Value Reference Range Interpretation Comments POC-GLUCOSE METER 88 mg/dL 70-110 : TESTED A T [facility] 6720 (BEAKER) (test code = AVINASH Dunn [place], 1538) [address]: Vocational Counselor/Techni smiley ID = [id number] for CIRA ROLAND POCT-GLUCOSE [id number] 06:25:50 Test Item Value Reference Range Interpretation Comments POC-GLUCOSE METER 110 mg/dL 70-110 : TESTED A T [facility] 6720 (BEAKER) (test code = AVINASH Dunn [place], 1538) [address]: Vocational Counselor/Techni smiley ID = [id number] for NADEGE IVEY BASIC METABOLIC [id number] 04:16:53 Test Item Value Reference Range Interpretation [...] not appl icable for dialysis patien ts Vocational Counselor ID - DAMIÁN [id number] 04:16:53 Test Item Value Reference Range Interpretation Comments MAGNESIUM (BEAKER) (test code = 2.8 mg/dL 1.6-2.6 H 627) Vocational Counselor ID - DAMIÁN [id number] 04:16:53 Test Item Value Reference Range Interpretation Comments PHOSPHORUS (BEAKER) (test code = 5.7 mg/dL 2.3-4.7 H 604) Vocational Counselor ID Gisele STEEL WCBC W/PLT COUNT & AUTO [id number] 03:44:05 Test Item Value Reference Range Interpretation [...] PERCENT (BEAKER) (test code = 2801) POCT-GLUCOSE [id number] 23:25:33 Test Item Value Reference Range Interpretation Comments POC-GLUCOSE METER 114 mg/dL 70-110 H : TESTED A T [facility] 6720 (BEAKER) (test code = [facility]) [address]: Vocational Counselor/Techni smiley ID = [id number] for NADEGE IVEY [id number] 18:58:11 Test Item Value Reference Range Interpretation Comments SODIUM (BEAKER) (test code = 381) 142 meq/L 136-145 Vocational Counselor ID - JSPOCT-GLUCOSE [id number] 17:04:52 Test Item Value Reference Range Interpretation Comments POC-GLUCOSE METER 142 mg/dL 70-110 H : TESTED A T [facility] 6720 (BEAKER) (test code = [facility], 153) [address]: Vocational Counselor/Techni smiley ID = [id number] for MA RTINEZ, MANDA POCT-GLUCOSE [id number] 12:43:34 Test Item Value Reference Range Interpretation Comments POC-GLUCOSE METER 127 mg/dL 70-110 H : TESTED A T [facility] 6720 (BEAKER) (test code = [facility], 153) [address]: Vocational Counselor/Techni smiley ID = [id number] for MA RTINEZ, MANDA [id number] 12:42:31 Test Item Value Reference Range Interpretation Comments SODIUM (BEAKER) (test code = 381) 141 meq/L 136-145 Vocational Counselor ID - JSPOCT-GLUCOSE [id number] 05:53:11 Test Item Value Reference Range Interpretation Comments POC-GLUCOSE METER 122 mg/dL 70-110 H : TESTED A T [facility] 6720 (BEAKER) (test code = [facility], 1538) [address]: Vocational Counselor/Techni smiley ID = [id number] for NADEGE IVEY [id number] 04:57:58 Test Item Value Reference Range Interpretation Comments PHOSPHORUS (BEAKER) 6.1 mg/dL 2.3-4.7 H Specimen slightly (test code = 604) hemolyzed Vocational Counselor ID - DAMIÁN WBASIC METABOLIC [id number] 04:57:58 Test Item Value Reference Range Interpretation [...] not appl icable for dialysis patien ts Vocational Counselor ID - DAMIÁN [id number] 04:57:57 Test Item Value Reference Range Interpretation Comments MAGNESIUM (BEAKER) 2.7 mg/dL 1.6-2.6 H Specimen slightly (test code = 627) hemolyzed Vocational Counselor ID - DAMIÁN WCBC W/PLT COUNT & AUTO [id number] 04:36:11 Test Item Value Reference Range Interpretation [...] PERCENT (BEAKER) (test code = 2801) POCT-GLUCOSE [id number] 00:26:17 Test Item Value Reference Range Interpretation Comments POC-GLUCOSE METER 117 mg/dL 70-110 H : TESTED A T [facility] 6720 (BEAKER) (test code = AVINASH Dunn [place], 1538) [address]: Vocational Counselor/Techni smiley ID = [id number] for NADEGE IVEY [id number] 19:29:04 Test Item Value Reference Range Interpretation Comments SODIUM (BEAKER) (test code = 381) 141 meq/L 136-145 Vocational Counselor ID - ADMINPOCT-GLUCOSE [id number] 16:58:24 Test Item Value Reference Range Interpretation Comments POC-GLUCOSE METER 142 mg/dL 70-110 H : TESTED A T [facility] 6720 (BEAKER) (test code = SRIRAMTN Mona [facility], 1538) [address]: Vocational Counselor/Techni smiley ID = [id number] for MANDA ESPARZA XR ABDOMEN/KUB 1 VIEW [id number] 13:01:43 [facility] 1975 Sex: FAbdomen , one viewHistory:Feeding tube placementComparison:10/30/2022Findings:Tip of the feeding tube is near the pylorus. Nonobstructive bowel gaspattern. Cholecystectomy clips within the right upper quadrant.Electronically Signed By: Dion Vigil MD11/03/2022 13:03 CDTWorkstation Name: [id number] 12:39:24 Test Item Value Reference Range Interpretation Comments SODIUM (BEAKER) (test code = 381) 142 meq/L 136-145 POCT-GLUCOSE [id number] 12:05:03 Test Item Value Reference Range Interpretation Comments POC-GLUCOSE METER 118 mg/dL 70-110 H : TESTED A T [facility] 6720 (BEAKER) (test code = [place], 1538) [address]: Vocational Counselor/Techni smiley ID = [id number] for MANDA ESPARZA [id number] 06:17:11 Test Item Value Reference Range Interpretation Comments PHOSPHORUS (BEAKER) (test code = 4.1 mg/dL 2.3-4.7 604) Vocational Counselor ID - DAMIÁN WBASIC METABOLIC [id number] 06:17:10 Test Item Value Reference Range Interpretation [...] not appl icable for dialysis patien ts Vocational Counselor ID - DAMIÁN [id number] 06:17:10 Test Item Value Reference Range Interpretation Comments MAGNESIUM (BEAKER) (test code = 2.4 mg/dL 1.6-2.6 627) Vocational Counselor ID - DAMIÁN WPOCT-GLUCOSE [id number] 05:50:21 Test Item Value Reference Range Interpretation Comments POC-GLUCOSE METER 121 mg/dL 70-110 H : TESTED A T [facility] 6720 (BEAKER) (test code = [place], 1538) [address]: Vocational Counselor/Techni smiley ID = [id number] for NADEGE IVEY CBC W/PLT COUNT & AUTO [id number] 05:25:22 Test Item Value Reference Range Interpretation [...] PERCENT (BEAKER) (test code = 2801) POCT-GLUCOSE [id number] 23:36:51 Test Item Value Reference Range Interpretation Comments POC-GLUCOSE METER 116 mg/dL 70-110 H : [facility]) (test code = [facility], 1538) [address]: Vocational Counselor/Techni smiley ID = [id number] for NADEGE IVEY [id number] 18:30:49 Test Item Value Reference Range Interpretation Comments SODIUM (AKER) (test code = 381) 141 meq/L 136-145 Vocational Counselor ID - ADMINPOCT-GLUCOSE [id number] 17:57:14 Test Item Value Reference Range Interpretation Comments POC-GLUCOSE METER 118 mg/dL 70-110 H : TESTED A T [facility] 6720 ([facility]) (test code = [facility], 153) [address]: Vocational Counselor/Techni smiley ID = [id number] for Donna Rolle MRSA [id number] 14:39:15 Test Item Value Reference Range Interpretation Comments Result (test code = 6463-4) [facility] [id number] 14:39:15 Test Item Value Reference Range Interpretation Comments Result (test code = 6463-4) No [facility] [id number] 14:39:15 Test Item Value Reference Range Interpretation Comments Result (test code = 6463-4) No [facility] [id number] 14:39:15 Test Item Value Reference Range Interpretation Comments Result (test code = 6463-4) No [facility] [id number] 14:39:15 Test Item Value Reference Range Interpretation Comments Result (test code = 6463-4) No [facility] isolated [facility] [id number] 14:39:15 Test Item Value Reference Range Interpretation Comments CULTURE (BEAKER) (test code No MRSA isolated = 1095) [id number] 13:35:39 Test Item Value Reference Range Interpretation Comments SODIUM (BEAKER) (test code = 381) 139 meq/L 136-145 Vocational Counselor ID - BVPOCT-GLUCOSE [id number] 13:06:41 Test Item Value Reference Range Interpretation Comments POC-GLUCOSE METER 134 mg/dL 70-110 H : TESTED A T [facility] 6720 (BEAKER) (test code = [place], 1538) [address]: Vocational Counselor/Techni smiley ID = [id number] for An Donna lucas CT BRAIN WITHOUT IV [id number] 13:00:59 [facility] 1975 Sex: FCT [...] Signed By: Alexandra Liang11/02/2022 13:03 CDTWorkstation Name: [id number] 06:29:29 Test Item Value Reference Range Interpretation Comments SODIUM (BEAKER) (test code = 381) 139 meq/L 136-145 BASIC METABOLIC [id number] 06:29:28 Test Item Value Reference Range Interpretation [...] not appl icable for dialysis patien ts Vocational Counselor ID - [id number] 06:29:28 Test Item Value Reference Range Interpretation Comments MAGNESIUM (BEAKER) (test code = 2.2 mg/dL 1.6-2.6 627) Vocational Counselor ID - NFVCDLGXFHVVBJD7837-70-93 06:29:28 Test Item Value Reference Range Interpretation Comments PHOSPHORUS (BEAKER) (test code = 3.8 mg/dL 2.3-4.7 604) Vocational Counselor ID - MARCOPOCT-GLUCOSE [id number] 06:21:55 Test Item Value Reference Range Interpretation Comments POC-GLUCOSE METER 125 mg/dL 70-110 H : [facility] (BEAKER) (test code = [place], 1538) [address]: Vocational Counselor/Techni smiley ID = [id number] for NADEGE IVEY CBC W/PLT COUNT & AUTO [id number] 06:08:00 Test Item Value Reference Range Interpretation [...] PERCENT (BEAKER) (test code = 2801) POCT-GLUCOSE [id number] 00:19:06 Test Item Value Reference Range Interpretation Comments POC-GLUCOSE METER 99 mg/dL 70-110 : TESTED A T [facility] 6720 (BEAKER) (test code = [facility], 1538) [address]: Vocational Counselor/Techni smiley ID = [id number] for NADEGE MORALES [id number] 18:45:56 Test Item Value Reference Range Interpretation Comments SODIUM (BEAKER) (test code = 381) 140 meq/L 136-145 Vocational Counselor ID - ADMPOCT-GLUCOSE [id number] 18:39:21 Test Item Value Reference Range Interpretation Comments POC-GLUCOSE METER 121 mg/dL 70-110 H : TESTED A T [facility] 6720 (BEAKER) (test code [facility], = 1538) [address]: Vocational Counselor/Techni smiley ID = [id number] for Kristin vitale [place] 2D Echo W/Doppler(CW/PW/Color)2022-11-01 17:30:35Transthoracic Echocardiography Report (TTE) Demographics Patient Name IVÁN Cabello Date of Study 11/01/2022 Gender Female Visit Number [id number] Race Unknown RoomNumber 7516 Number Date of 1975 Referring Physician Katelyn Chavez Age 47 year(s) Lead Principal Technical Architect Bernard Lopez Distribution Superintendent No Evangelista, Interpreting Ermias Fink RDCS Physician M DProcedure Type of Study TTE procedure:2DECHO W DOPPLER(CW/PW/COLOR) (Routine)Indications:Known or suspected cardiomyopathy.Clinical HistoryASTHMA, GERD , HTN , THYROID DISEASE , MIHeight: 62 inches Weight: 74.39 kg (164 lbs) BSA: 1.76 m^2 BMI: 30 kg/m^2HR: 81 bpm BP: 155/94 mmHg Summary The left ventr icle is chamber size (by vol index) is [...] by Javed's method of disk assessment is norm al (55-60%) . Grade 2 diastolic dysfunction (moderately [...] Peak Velocity: 1.32 m/s Peak Gradient: 7.01 mmHgSaddleback Memorial Medical CenterODIUM2023-08-17 14:24:36 Test Item Value Reference Range Interpretation Comments SODIUM (BEAKER) (test code = 381) 140 meq/L 136-145 Vocational Counselor ID - HSWHEMQTQTFN7160-12-73 10:06:02 Test Item Value Reference Range Interpretation Comments POTASSIUM (BEAKER) (test code = 3.8 meq/L 3.5-5.1 379) Vocational Counselor ID - XWSCZVSBQGMD1125-03-41 10:06:01 Test Item Value Reference Range Interpretation Comments MAGNESIUM (BEAKER) (test code = 2.3 mg/dL 1.6-2.6 627) Vocational Counselor ID - ADMVANCOMYCIN LEVEL, [id number] 09:59:39 Test Item Value Reference Range Interpretation Comments VANCOMYCIN TROUGH (BEAKER) (test 8.4 ug/mL 10.0-20.0 L code = 522) Vocational Counselor ID - [id number] 04:21:26 Test Item Value Reference Range Interpretation Comments MAGNESIUM (BEAKER) (test code = 2.0 mg/dL 1.6-2.6 627) Vocational Counselor ID - JOOWUSKUTDAVCDL3424-52-03 04:21:26 Test Item Value Reference Range Interpretation Comments PHOSPHORUS (BEAKER) (test code = 3.2 mg/dL 2.3-4.7 604) Vocational Counselor ID - ADMINBASIC METABOLIC [id number] 04:21:25 Test Item Value Reference Range Interpretation [...] not appl icable for dialysis patien ts Vocational Counselor ID - ADMINCBC W/PLT COUNT & AUTO [id number] 03:36:42 Test Item Value Reference Range Interpretation [...] 0.00-1.00 PERCENT (BEAKER) (test code = 2801) [id number] 00:11:29 Test Item Value Reference Range Interpretation Comments SODIUM (BEAKER) (test code = 381) 139 meq/L 136-145 Vocational Counselor ID - [id number] 18:25:44 Test Item Value Reference Range Interpretation Comments SODIUM (BEAKER) (test code = 381) 139 meq/L 136-145 Vocational Counselor ID - esauSARS-CoV2/Influenza/RSV RT-PCR (Symptomatic ONLY)2022-10-31 14:03:24 Test Item Value Reference Interpretation Comments Range SARS-COV2/RT-PCR Negative Negative The SARS-Co V-2 (test code = target nucleic 30162-9) acids are not detected in thi s [...] (test code = [place] re 18127-1) not detected in this specimen. Influenza B RT-PCR Negative Negative The Flu B target (test code = [place] 45079-6) not detected in this specimen. RSV by RT-PCR (test Negative Negative The RSV target code = 50211-6) nucleic acid s are not detected in [...] SARS-CoV-2/Flu/RSV by their healthcare provider. Results from [facility] Xpert Xpress SARS-CoV-2/Flu/RSV test should be [...] of the Act. Fact Sheet for Healthcare Providers:https://S[employer] Roundtable/Docu ments/Xpert%20Xpres s%20SARS%20CoV-2/Fa ct%20Sheets/302-390 2%89KJVP-UKW-7%20HE ALTHCARE%20PROVIDER S%20FACT%20SHEET.pd f Fact Sheet for Healthcare Patients:https://Synt[employer]a/Docum ents/Xpert%20Xpress %20SARS%20Cov-2/Fac t%20Sheets/302-3801 %65KQYH-FKR-5%20PAT IENT%20FACT%20SHEET .pdf Lab Interpretation Normal (test code = 40245-9) [facility] CenterARS[facility]/Influenza/RSV RT-PCR (Symptomatic ONLY) 2022-10-31 14:03:24 Test Item Value Reference Interpretation Comments Range SARS-COV2/RT-PCR Negative Negative The SARS-Co V-2 (test code = target nucleic 78272-9) acids are not detected in thi s [...] (test code = [place] re 38444-4) not detected in this specimen. Influenza B RT-PCR Negative Negative The Flu B target (test code = [place] re 06603-8) not detected in this specimen. RSV by RT-PCR (test Negative Negative The RSV target code = 42752-7) nucleic acid s are not detected in [...] SARS-CoV-2/Flu/RSV by their healthcare provider. Results from [facility] Xpert Xpress SARS-CoV-2/Flu/RSV test should be [...] the Act. Fact Sheet for Healthcare Providers:https://w ww.Codesion/Docu ments/Xpert%20Xpres s%20SARS%20CoV-2/Fa ct%20Sheets/302-390 2%41PDDA-XKY-3%20HE ALTHCARE%20PROVIDER S%20FACT%20SHEET.pd f Fact Sheet for Healthcare Patients:https://ww Bluefly/Docum ents/Xpert%20Xpress %20SARS%20Cov-2/Fac t%20Sheets/302-3801 %92YPIL-DTL-4%20PAT IENT%20FACT%20SHEET .pdf Lab Interpretation Normal (test code = 57498-1) [facility] CenterARS-CoV[facility]/Influenza/RSV RT-PCR (Symptomatic ONLY) 2022-10-31 14:03:24 Test Item Value Reference Interpretation Comments Range SARS-COV2/RT-PCR Negative Negative The SARS-Co V-2 (test code = target nucleic 65128-3) acids are not detected in thi s [...] (test code = [place] re 89479-6) not detected in this specimen. Influenza B RT-PCR Negative Negative The Flu B target (test code = [place] re 26998-7) not detected in this specimen. RSV by RT-PCR (test Negative Negative The RSV target code = 84250-6) nucleic acid s are not detected in [...] SARS-CoV-2/Flu/RSV by their healthcare provider. Results from [facility] Xpert Xpress SARS-CoV-2/Flu/RSV test should be [...] the Act. Fact Sheet for Healthcare Providers:https://murphy SweetSlap/Docu ments/Xpert%20Xpres s%20SARS%20CoV-2/Fa ct%20Sheets/302-390 2%77SOJR-EIV-4%20HE ALTHCARE%20PROVIDER S%20FACT%20SHEET.pd f Fact Sheet for Healthcare Patients:https://linda Bluefly/Docum ents/Xpert%20Xpress %20SARS%20Cov-2/Fac t%20Sheets/302-3801 %42OOII-HCR-2%20PAT IENT%20FACT%20SHEET .pdf Lab Interpretation Normal (test code = 25434-9) [facility] CenterARS[facility]/Influenza/RSV RT-PCR (Symptomatic ONLY) 2022-10-31 14:03:24 Test Item Value Reference Interpretation Comments Range SARS-COV2/RT-PCR Negative Negative The SARS-Co V-2 (test code = target nucleic 87259-8) acids are not detected in thi s [...] (test code = [place] re 95438-8) not detected in this specimen. Influenza B RT-PCR Negative Negative The Flu B target (test code = [place] 71610-6) not detected in this specimen. RSV by RT-PCR (test Negative Negative The RSV target code = 04768-1) nucleic acid s are not detected in [...] SARS-CoV-2/Flu/RSV by their healthcare provider. Results from [facility] Xpert Xpress SARS-CoV-2/Flu/RSV test should be [...] the Act. Fact Sheet for Healthcare Providers:https://w SweetSlap/Docu ments/Xpert%20Xpres s%20SARS%20CoV-2/Fa ct%20Sheets/302-390 2%12EJZK-VKC-4%20HE ALTHCARE%20PROVIDER S%20FACT%20SHEET.pd f Fact Sheet for Healthcare Patients:https://Synt[employer]a/Docum ents/Xpert%20Xpress %20SARS%20Cov-2/Fac t%20Sheets/302-3801 %82FTXV-UHS-6%20PAT IENT%20FACT%20SHEET .pdf Lab Interpretation Normal (test code = 17962-5) [facility]/Influenza/RSV RT-PCR (Symptomatic ONLY) 2022-10-31 14:03:24 Test Item Value Reference Interpretation Comments Range SARS-COV2/RT-PCR Negative Negative The SARS-Co V-2 (test code = target nucleic 57134-6) acids are not detected in thi s [...] (test code = [place] re 88702-6) not detected in this specimen. Influenza B RT-PCR Negative Negative The Flu B target (test code = nucleic [place] re 08124-4) not detected in this specimen. RSV by RT-PCR (test Negative Negative The RSV target code = 90603-1) nucleic acid s are not detected in [...] SARS-CoV-2/Flu/RSV by their healthcare provider. Results from [facility] Xpert Xpress SARS-CoV-2/Flu/RSV test should be [...] the Act. Fact Sheet for Healthcare Providers:https://w ww.BidAway.com.[employer]/Docu ments/Xpert%20Xpres s%20SARS%20CoV-2/Fa ct%20Sheets/302-390 2%84HNUV-HYW-2%20HE ALTHCARE%20PROVIDER S%20FACT%20SHEET.pd f Fact Sheet for Healthcare Patients:https://ww wWDFA Marketing/Docum ents/Xpert%20Xpress %20SARS%20Cov-2/Fac t%20Sheets/302-3801 %40DYSU-EGB-5%20PAT IENT%20FACT%20SHEET .pdf Lab Interpretation Normal (test code = 67419-7) [facility] CenterARS-COV2/INFLUENZA/RSV [id number] 14:03:24 Test Item Value Reference Range Interpretation Comments SARS-COV2/RT-PCR Negative Negative The SARS-Co V-2 target (test code = nucleic acids a re not 8465054) detected in thi s specimen. Negat yesika [...] individuals amanda pected of COVID-[address] [facility] ide. INFLUENZA A RT-PCR Negative Negative The Flu A target nucleic (test code = acids are not d etected in 7654506) this specimen. INFLUENZA B RT-PCR Negative Negative The Flu B target nucleic (test code = acids are not d etected in 7280095) this specimen. RSV RT-PCR (test Negative Negative The RSV tar get nucleic code = 6998123) acids are no t detected in this [...] Xpress SARS-CoV-2/Flu/RSV by their healthcareprovider. Results from [facility] Xpert Xpress SARS-CoV-2/Flu/RSV test should be [...] of the Act.Fact Sheet for Healthcare Providers:https ://www.Codesion/Documents/Xpert%20Xpress%20SARS%20CoV-2/Fact%20Sheets/302-390 2%93OWVS-UYE-5%20HEALTHCARE%20PROVIDERS%20FACT%20SHEET.pdfFact Sheet for Healthcare Patients:https://www.Codesion/Docum ents/Xpert%20Xpress%20SARS%20Cov-2/Fact%20Sheets/3023801%78HHPU-WEK-1%20PATIENT %20FACT%20SHEET.qfxQDVAHW4854-91-21 12:52:25 Test Item Value Reference Range Interpretation Comments SODIUM (BEAKER) (test code = 381) 135 meq/L 136-145 L Vocational Counselor ID - mmlaZJOOMXGHF0145-01-15 12:52:24 Test Item Value Reference Range Interpretation Comments MAGNESIUM (BEAKER) (test code = 2.4 mg/dL 1.6-2.6 627) Vocational Counselor ID - esauPOCT-GLUCOSE [id number] 12:00:51 Test Item Value Reference Range Interpretation Comments POC-GLUCOSE METER 130 mg/dL 70-110 H [facility] (test code [facility], = 1538) 835[address]: Vocational Counselor/Techni smiley ID = [id number] for Latonia Connolly B-TYPE NATRIURETIC FACTOR (BNP)2022-10-31 10:43:21 Test Item Value Reference Range Interpretation Comments B-TYPE NATRIURETIC PEPTIDE (BEAKER) 568 pg/mL 0-100 H (test code = 700) Vocational Counselor ID - esauVenous doppler legs bkwcnmvnj3806-71-28 08:29:42PV LAB - Lower Extremities DVT Study Demographics Patient Name IVÁN INIGUEZ Date of Study 10/31/2022 Annabel Age 47 Visit Number [id number] Gender Female Accession Number [id number] Date of 1975 Referring Kathy Zepeda MD Room Number 6413 Physician Lead Principal Technical Architect Wayne Zavala [facility] Interpreting Bia Herbert MD Physician FellowProcedureType of [...] in cm/s ; Diameters [facility] [id number] 08:29:21PV LAB - Upper Extremities Veins Demographics Patient Name IVÁN INIGUEZ Date of Study 10/31/2022 Annabel Age 47 Visit Number [id number] Gender Female Accession Number [id number] Date of Birth1975 Referring Kathy Zepeda MD Room Number 2584 Physician Lead Principal Technical Architect Wayne Zavala [facility] Interpreting Bia Herbert MD Physician FellowProcedureType of [...] in cm/s ; Diameters are measured in [facility] [id number] 05:07:29 Test Item Value Reference Range Interpretation Comments MAGNESIUM (BEAKER) (test code = 1.9 mg/dL 1.6-2.6 627) Vocational Counselor ID - [id number] 05:07:29 Test Item Value Reference Range Interpretation Comments PHOSPHORUS (BEAKER) (test code = 3.7 mg/dL 2.3-4.7 604) Vocational Counselor ID - ADMINBASIC METABOLIC [id number] 05:07:28 Test Item Value Reference Range Interpretation [...] not appl icable for dialysis patien ts Vocational Counselor ID - ADMINCBC W/PLT COUNT & AUTO [id number] 04:47:13 Test Item Value Reference Range Interpretation [...] 0.00-1.00 PERCENT (BEAKER) (test code = 2801) [id number] 23:06:40 Test Item Value Reference Range Interpretation Comments SODIUM (BEAKER) (test code = 381) 133 meq/L 136-145 L Vocational Counselor ID - ADMINHIGH SENSITIVITY TROPONIN [id number] 22:59:43 Test Item Value Reference Range Interpretation Comments HIGH SENSITIVITY 92 pg/ml See_Comment H [Automated message] TROPONIN I (test code = The system which 6051431) generated this result transmitted ref erence range: <=17. Th e reference range was not used to int erpret this result as normal/abnormal . Vocational Counselor ID - ADMINThe ADJUNCT FACULTY FOR MEDICAL TERMINOLOGY STAT High Sensitivity Troponin-I results should be used in conjunction with other diagnostic information such as ECG, clinical observations and information, and patientsymptoms to aid in the diagnosis of ME. XR ABDOMEN/KUB 1 VIEW [id number] 18:54:45 [facility] Annabel : 1975 Sex: FTECHNIQUE: XR ABDOMEN/KUB 1 VIEW PORTABLEINDICATION: corpak placement.COMPARISON: 10/29/2022FINDINGS:Feeding tube tip projecting over the body of the stomach. No specificevidence for bowel obstruction. Cholecystectomy clips are noted. Supineradiographs are insensitive for detection of free intraperitoneal ai r.IMPRESSION:Feeding tube tip projects over the body of the stomach.Electronically Signed By: Mo Soares10/30/2022 18:56 CDTWorkstation Name: [id number] SENSITIVITY TROPONIN [id number] 17:30:01 Test Item Value Reference Range Interpretation Comments HIGH SENSITIVITY 123 pg/ml See_Comment H [Automated message] TROPONIN I (test code The sy stem which = 5723058) generated this result transmitted ref erence range: <=17. Th e reference range was not used to int erpret this result as normal/abnormal . Vocational Counselor ID - BSThe ADJUNCT FACULTY FOR MEDICAL TERMINOLOGY STAT High Sensitivity Troponin-I results should be used in conjunctionwith other diagnostic information such as ECG, clinical observations and information, and patient symptoms to aid in the diagnosis of ME.Lactic Acid, [id number] 17:25:59 Test Item Value Reference Range Interpretation Comments Lactate, Art (test code = 1.0 mmol/L 0.5-2.0 2874) SUE (test code = SUE) Vocational Counselor ID - ADMIN Lab Interpretation (test Normal code = 51343-0) [facility] [id number] 17:25:59 Test Item Value Reference Range Interpretation Comments Lactate, Art (test code = 1.0 mmol/L 0.5-2.0 2874) SUE (test code = SUE) Vocational Counselor ID - ADMIN Lab Interpretation (test Normal code = 16313-6) [facility], [id number] 17:25:59 Test Item Value Reference Range Interpretation Comments Lactate, Art (test code = 1.0 mmol/L 0.5-2.0 2874) SUE (test code = SUE) Vocational Counselor ID - ADMIN Lab Interpretation (test Normal code = 16496-3) [facility], [id number] 17:25:59 Test Item Value Reference Range Interpretation Comments Lactate, Art (test code = 1.0 mmol/L 0.5-2.0 2874) SUE (test code = SUE) Vocational Counselor ID - ADMIN Lab Interpretation (test Normal code = 58598-6) [facility], [id number] 17:25:59 Test Item Value Reference Range Interpretation Comments Lactate, Art (test code = 1.0 mmol/L 0.5-2.0 2874) SUE (test code = SUE) Vocational Counselor ID - ADMIN Lab Interpretation (test Normal code = 15006-5) [facility] HospitalLACT[facility] ACID, [id number] 17:25:59 Test Item Value Reference Range Interpretation Comments LACTATE BLOOD ARTERIAL (2) 1.0 mmol/L 0.5-2.0 (BEAKER) (test code = 2874) Vocational Counselor ID - [id number] 17:21:36 Test Item Value Reference Range Interpretation Comments SODIUM (BEAKER) (test code = 381) 136 meq/L 136-145 Vocational Counselor ID - ADMINBLOOD GAS, [id number] 14:46:08 Test Item Value Reference Range Interpretation [...] FIO2 (BEAKER) (test code = 1819) 100.0 [id number] 12:47:53 Test Item Value Reference Range Interpretation Comments SODIUM (BEAKER) (test code = 381) 137 meq/L 136-145 Vocational Counselor ID - JSLACTIC ACID, [id number] 12:47:37 Test Item Value Reference Range Interpretation Comments LACTATE BLOOD 2.3 mmol/L 0.5-2.0 H Specimen sligh tly ARTERIAL (2) (BEAKER) hemoly zed (test code = 2874) Vocational Counselor ID - JSBLOOD GAS, [id number] 12:23:19 Test Item Value Reference Range Interpretation [...] FIO2 (BEAKER) (test code = 1819) 100.0 [id number] 11:15:25 Test Item Value Reference Range Interpretation Comments PROCALCITONIN (BEAKER) (test code 0.05 ng/mL <0.05 H = 3036) SEPSIS RISK (ng/mL)Low: 0.05-0.50Intermediate: 0.51-2.00High: >=2.01HIGH SENSITIVITY TROPONIN [id number] 11:10:59 Test Item Value Reference Range Interpretation Comments HIGH SENSITIVITY 139 pg/ml See_Comment H [Automated message] TROPONIN I (test code The sy stem which = 9874750) generated this result transmitted ref erence range: <=17. Th e reference range was not used to int erpret this result as normal/abnormal . Vocational Counselor ID - JSThe ADJUNCT FACULTY FOR MEDICAL TERMINOLOGY STAT High Sensitivity Troponin-I results should be used in conjunctionwith other diagnostic information such as ECG, clinical observations and information, and patient symptoms to aid in the diagnosis of ME.XR CHEST 1 VIEW PORTABLE / [id number] 10:47:01 [facility] Annabel : 1975 Sex: FCLINICAL HISTORY: desaturationTECHNIQUE: 1 view of the chest.COMPARISON: 10/29/2022IMPRESSION:ETT no longer seen. New feeding tube below the diaphragm. Right centralline remains in the right atrium. There are mildly increased bilaterallower lung airspace opacities with blunting of both costophrenic angles.The cardiomediastinal silhouette is magnified by technique.Electronically Signed By: Yeyo Mills10/30/2022 10:49 CDTWorkstation Name: [id number] BRAIN WITHOUT IV [id number] 09:21:03 [facility] : 1975 Sex: [...] Signed By: Luís Mclain10/30/2022 09:23 CDTWorkstation Name: [id number] 04:21:01 Test Item Value Reference Range Interpretation Comments PHOSPHORUS (BEAKER) (test code = 3.2 mg/dL 2.3-4.7 604) Vocational Counselor ID - EMBASIC METABOLIC [id number] 04:21:00 Test Item Value Reference Range Interpretation [...] not appl icable for dialysis patien ts Vocational Counselor ID - [id number] 04:21:00 Test Item Value Reference Range Interpretation Comments MAGNESIUM (BEAKER) (test code = 1.7 mg/dL 1.6-2.6 627) Vocational Counselor ID - EMCBC W/PLT COUNT & AUTO [id number] 03:30:03 Test Item Value Reference Range Interpretation [...] 0.00-1.00 PERCENT (BEAKER) (test code = 2801) [id number] 00:34:48 Test Item Value Reference Range Interpretation Comments SODIUM (BEAKER) (test code = 381) 137 meq/L 136-145 Vocational Counselor ID - ADMINXR ABDOMEN/KUB 1 VIEW [id number] 18:55:43 [facility] L : [...] Signed By: Mo Soares10/29/2022 18:57 CDTWorkstation Name: [id number] 2022-10-29 18:31:20 Test Item Value Reference Range Interpretation Comments SODIUM (BEAKER) (test code = 381) 138 meq/L 136-145 Vocational Counselor ID - ADMINCreatinine, random [id number] 15:21:04 Test Item Value Reference Range Interpretation Comments Creatinine, Ur 24.5 mg/dL (test code = 2161-8) SUE (test code = Reference Range: No SUE) NormalsOperator ID - ADMIN [facility] HospitalCreatinine, random [id number] 15:21:04 Test Item Value Reference Range Interpretation Comments Creatinine, Ur 24.5 mg/dL (test code = 2161-8) SUE (test code = Reference Range: No SUE) NormalsOperator ID - ADMIN [facility] HospitalCreatinine, random [id number] 15:21:04 Test Item Value Reference Range Interpretation Comments Creatinine, Ur 24.5 mg/dL (test code = 2161-8) SUE (test code = Reference Range: No SUE) NormalsOperator ID - ADMIN [facility] HospitalCreatinine, random [id number] 15:21:04 Test Item Value Reference Range Interpretation Comments Creatinine, Ur 24.5 mg/dL (test code = 2161-8) SUE (test code = Reference Range: No SUE) NormalsOperator ID - ADMIN [facility] HospitalCreatinine, random [id number] 15:21:04 Test Item Value Reference Range Interpretation Comments Creatinine, Ur 24.5 mg/dL (test code = 2161-8) SUE (test code = Reference Range: No SUE) NormalsOperator ID - ADMIN [facility] HospitalCREATININE, RANDOM [id number] 15:21:04 Test Item Value Reference Range Interpretation Comments CREATININE URINE (BEAKER) (test 24.5 mg/dL code = 375) Reference Range: No NormalsOperator ID - ADMINRapid drug screen, [id number] 14:06:15 Test Item Value Reference Range Interpretation Comments Barbiturate Screen Negative Negative (test code = 49459-8) Benzodiazepine Screen Negative Negative (test code = 34196-3) Cocaine (Metab.) Negative Negative Screen (test code = 3397-7) Methadone Screen (test Negative Negative code = 41894-4) Opiate Screen (test Negative Negative code = 69958-6) Cannabinoid Screen Negative Negative (test code = 80360-8) Amph/Methamph Screen Positive Negative A (test code = 14698-9) Phencyclidine Screen Negative Negative (test code = 52050-1) pH, UA (test code = 6.0 5.0-8.0 5803-2) SUE (test code = SUE) DRUG CUTOFF CONC.Cocaine 300 ng/mL Cannabinoid 50 ng/mLBenzodiazepine 200 ng/mLBarbiturate 200 ng/mLPhencyclidine 25 ng/mLOpiate 300 ng/mLMethadone 300 ng/mLAmphetamine/ 1000 ng/mL Methamphetamine This assay provides an unconfirmed qualitative test result for the clinical management of patients in emergency situations. Chain of custody not maintained. Some lcxc-mvt-pjpybui medications, as well as adulterants, may cause inaccurate results. Clinical correlation should be applied. A more comprehensive drug screen or confirmation of a detected drug may be performed upon request.Vocational Counselor ID - JSOperator ID - [auto] Lab Interpretation Abnormal (test code = 46814-0) [facility] HospitalR[facility], [id number] 14:06:15 Test Item Value Reference Range Interpretation Comments Barbiturate Screen Negative Negative (test code = 85756-6) Benzodiazepine Screen Negative Negative (test code = 16248-3) Cocaine (Metab.) Negative Negative Screen (test code = 3397-7) Methadone Screen (test Negative Negative code = 36203-6) Opiate Screen (test Negative Negative code = 89837-8) Cannabinoid Screen Negative Negative (test code = 84443-6) Amph/Methamph Screen Positive Negative A (test code = 20002-4) Phencyclidine Screen Negative Negative (test code = 47738-7) pH, UA (test code = 6.0 5.0-8.0 5803-2) SUE (test code = SUE) DRUG CUTOFF CONC.Cocaine 300 ng/mL Cannabinoid 50 ng/mLBenzodiazepine 200 ng/mLBarbiturate 200 ng/mLPhencyclidine 25 ng/mLOpiate 300 ng/mLMethadone 300 ng/mLAmphetamine/ 1000 ng/mL Methamphetamine This assay provides an unconfirmed qualitative test result for the clinical management of patients in emergency situations. Chain of custody not maintained. Some wiil-gyy-dlzedzj medications, as well as adulterants, may cause inaccurate results. Clinical correlation should be applied. A more comprehensive drug screen or confirmation of a detected drug may be performed upon request.Vocational Counselor ID - JSOperator ID - [auto] Lab Interpretation Abnormal (test code = 36337-6) [facility], [id number] 14:06:15 Test Item Value Reference Range Interpretation Comments Barbiturate Screen Negative Negative (test code = 54751-5) Benzodiazepine Screen Negative Negative (test code = 35014-2) Cocaine (Metab.) Negative Negative Screen (test code = 3397-7) Methadone Screen (test Negative Negative code = 78614-1) Opiate Screen (test Negative Negative code = 41529-9) Cannabinoid Screen Negative Negative (test code = 12077-0) Amph/Methamph Screen Positive Negative A (test code = 90432-8) Phencyclidine Screen Negative Negative (test code = 28256-2) pH, UA (test code = 6.0 5.0-8.0 5803-2) SUE (test code = SUE) DRUG CUTOFF CONC.Cocaine 300 ng/mL Cannabinoid 50 ng/mLBenzodiazepine 200 ng/mLBarbiturate 200 ng/mLPhencyclidine 25 ng/mLOpiate 300 ng/mLMethadone 300 ng/mLAmphetamine/ 1000 ng/mL Methamphetamine This assay provides an unconfirmed qualitative test result for the clinical management of patients in emergency situations. Chain of custody not maintained. Some timq-yam-cquzgbg medications, as well as adulterants, may cause inaccurate results. Clinical correlation should be applied. A more comprehensive drug screen or confirmation of a detected drug may be performed upon request.Vocational Counselor ID - JSOperator ID - [auto] Lab Interpretation Abnormal (test code = 95399-1) [facility], [id number] 14:06:15 Test Item Value Reference Range Interpretation Comments Barbiturate Screen Negative Negative (test code = 39844-0) Benzodiazepine Screen Negative Negative (test code = 19387-8) Cocaine (Metab.) Negative Negative Screen (test code = 3397-7) Methadone Screen (test Negative Negative code = 89724-3) Opiate Screen (test Negative Negative code = 65783-5) Cannabinoid Screen Negative Negative (test code = 94946-5) Amph/Methamph Screen Positive Negative A (test code = 24423-9) Phencyclidine Screen Negative Negative (test code = 70657-4) pH, UA (test code = 6.0 5.0-8.0 5803-2) SUE (test code = SUE) DRUG CUTOFF CONC.Cocaine 300 ng/mL Cannabinoid 50 ng/mLBenzodiazepine 200 ng/mLBarbiturate 200 ng/mLPhencyclidine 25 ng/mLOpiate 300 ng/mLMethadone 300 ng/mLAmphetamine/ 1000 ng/mL Methamphetamine This assay provides an unconfirmed qualitative test result for the clinical management of patients in emergency situations. Chain of custody not maintained. Some xvrz-ulq-vtnklqe medications, as well as adulterants, may cause inaccurate results. Clinical correlation should be applied. A more comprehensive drug screen or confirmation of a detected drug may be performed upon request.Vocational Counselor ID - JSOperator ID - [auto] Lab Interpretation Abnormal (test code = 01253-9) [facility], [id number] 14:06:15 Test Item Value Reference Range Interpretation Comments Barbiturate Screen Negative Negative (test code = 55866-9) Benzodiazepine Screen Negative Negative (test code = 91140-8) Cocaine (Metab.) Negative Negative Screen (test code = 3397-7) Methadone Screen (test Negative Negative code = 33456-5) Opiate Screen (test Negative Negative code = 89540-1) Cannabinoid Screen Negative Negative (test code = 59994-2) Amph/Methamph Screen Positive Negative A (test code = 28593-9) Phencyclidine Screen Negative Negative (test code = 25405-5) pH, UA (test code = 6.0 5.0-8.0 5803-2) SUE (test code = SUE) DRUG CUTOFF CONC.Cocaine 300 ng/mL Cannabinoid 50 ng/mLBenzodiazepine 200 ng/mLBarbiturate 200 ng/mLPhencyclidine 25 ng/mLOpiate 300 ng/mLMethadone 300 ng/mLAmphetamine/ 1000 ng/mL Methamphetamine This assay provides an unconfirmed qualitative test result for the clinical management of patients in emergency situations. Chain of custody not maintained. Some cfdp-ubb-nmpeowz medications, as well as adulterants, may cause inaccurate results. Clinical correlation should be applied. A more comprehensive drug screen or confirmation of a detected drug may be performed upon request.Vocational Counselor ID - JSOperator ID - [auto] Lab Interpretation Abnormal (test code = 76440-2) [facility], [id number] 14:06:15 Test Item Value Reference Range Interpretation [...] situations. Chain of custody not maintained. Some ytuy-nqk-iqvefvt medications, as well as adulterants, may cause inaccurate results. Clinical correlation should be applied. A more comprehensive drug screen or confirmation of a detected drug may be performed upon request.Vocational Counselor ID - JSOperatorID - [auto] HEMOGLOBIN [id number] 13:23:17 Test Item Value Reference Range Interpretation [...] 5.7- 6.4% indicates increased risk for diabetes (prediabetes)."Vocational Counselor ID - ADMOperator ID - ADMCTA [id number] 13:16:45CT BRAIN WITHOUT IV CONTRAST, CTA CAROTID, CTA BRAINBRAIN CT WITHOUT CONTRAST INDICATION: Unlisted Reason for Exam, intraparenchymal hematoma COMPARISON: None TECHNIQUE:Rapid acquisition spiral images were obtained between the aortic archand the cranial vertex during intravenous contrast infusion toreconstruct axial images and angiographic 3D maximum intensityprojections (MIP). 3-D volumetric reformatted images were created at [employer] workstation. Precontrast images of the brain were [...] opacities, which mayrepresent atelectasis, pneumonia or pulmonary edema.[facility] [id number] 13:16:45CT BRAIN WITHOUT IV CONTRAST, CTA CAROTID, CTA BRAINBRAIN CT WITHOUT CONTRAST INDICATION: Unlisted Reason for Exam, intraparenchymal hematoma COMPARISON: None TECHNIQUE:Rapid acquisition spiral images were obtained between the aortic archand the cranial vertex during intravenous contrast infusion toreconstruct axial images and angiographic 3D maximum intensityprojections (MIP). 3-D volumetric reformatted images were created at [employer] workstation. Precontrast images of the brain were [...] opacities, which mayrepresent atelectasis, pneumonia or pulmonary edema.[facility] HospitalCT[facility] [id number] 13:16:45 [facility] : 1975 Sex: FCT BRAIN WITHOUT IV CONTRAST, CTA CAROTID, CTA BRAINBRAIN CT WITHOUT CONTRASTINDICATION: Unlisted Reason for Exam, intraparenchymal hematomaCOMPARISON: NoneTECHNIQUE:Rapid acquisition spiral images were obtained between the aortic archand the cranial vertex during intravenous contrast infusion toreconstruct axial images and angiographic 3D maximum intensityprojections (MIP). 3-D volumetric reformatted images were created at [employer] workstation. Precontrast images of the brain were [...] Signed By: Luís Mclain10/29/2022 13:18 CDTWorkstation Name: [id number] BRAIN WITHOUT IV [id number] 13:16:45 [facility] 1975 Sex: FCT BRAIN WITHOUT IV CONTRAST, CTA CAROTID, CTA BRAINBRAIN CT WITHOUT CONTRASTINDICATION: Unlisted Reason for Exam, intraparenchymal hematomaCOMPARISON: NoneTECHNIQUE:Rapid acquisition spiral images were obtained between the aortic archand the cranial vertex during intravenous contrast infusion toreconstruct axial images and angiographic 3D maximum intensityprojections (MIP). 3-D volumetric reformatted images were created at [employer] workstation. Precontrast images of the brain were [...] Signed By: Luís Mclain10/29/2022 13:18 CDTWorkstation Name: [id number] 13:16:45[facility] : 1975 Sex: FCT BRAIN WITHOUT IV CONTRAST, CTA CAROTID, CTA BRAINBRAIN CT WITHOUT CONTRASTINDICATION: Unlisted Reason for Exam, intraparenchymal hematomaCOMPARISON: NoneTECHNIQUE:Rapid acquisition spiral images were obtained between the aortic archand the cranial vertex during intravenous contrast infusion toreconstruct axial images and angiographic 3D maximum intensityprojections (MIP). 3-D volumetric reformatted images were created at [employer] workstation. Precontrast images of the brain were [...] cm leftward midline shift at the [employer]am[employer]. CTA head and neck:1. No acute vascular abnormality in the head and neck.2. Hypoplastic left vertebral artery.Electronically Signed By: Luís Mclain10/29/2022 13:18 CDTWorkstation Name: [id number], QUANTITATIVE, [id number] 13:15:24 Test Item Value Reference Range Interpretation Comments GONADOTROPIN, CHORIONIC (HCG) QUANT < mIU/mL 0-10 (WESLEY) (test code = 649) Non- Females: <10 mIU/mL Females: Gestation Age Reference Range(mIU/mL) 0.2-1 Week 5-50 1-2 Weeks 50-500 2-3 Weeks 100-5,000 3-4 Weeks 500-10,000 4-5 Weeks 1,000-50,000 5-6 Weeks 10,000-100,000 6-8 Weeks 15,000- 200,000 2-3 Months 10,000-100,000 Vocational Counselor ID - Brody, urine 2022-10-29 13:07:55 Test Item Value Reference Range Interpretation Comments Osmolality, Ur (test code 529 See_Comment [ Automated message] = 2695-5) The system [employer] generated this result transmitted ref erence range: 50-1,200 mOsm/kg mOsm/kg . The reference range was not used to int erpret this result as normal/abnormal . Lab Interpretation (test Normal code = 26433-0) [facility], [id number] 13:07:55 Test Item Value Reference Range Interpretation Comments Osmolality, Ur (test code 529 See_Comment [ Automated message] = 2695-5) The system [employer] generated this result transmitted ref erence range: 50-1,200 mOsm/kg mOsm/kg . The reference range was not used to int erpret this result as normal/abnormal . Lab Interpretation (test Normal code = 02428-8) [facility], [id number] 13:07:55 Test Item Value Reference Range Interpretation Comments Osmolality, Ur (test code 529 See_Comment [ Automated message] = 2695-5) The system [employer] generated this result transmitted ref erence range: 50-1,200 mOsm/kg mOsm/kg . The reference range was not used to int erpret this result as normal/abnormal . Lab Interpretation (test Normal code = 96282-4) [facility], [id number] 13:07:55 Test Item Value Reference Range Interpretation Comments Osmolality, Ur (test code 529 See_Comment [ Automated message] = 2695-5) The system [employer] generated this result transmitted ref erence range: 50-1,200 mOsm/kg mOsm/kg . The reference range was not used to int erpret this result as normal/abnormal . Lab Interpretation (test Normal code = 25156-2) [facility], [id number] 13:07:55 Test Item Value Reference Range Interpretation Comments Osmolality, Ur (test code 529 See_Comment [ Automated message] = 2695-5) The system [employer] generated this result transmitted ref erence range: 50-1,200 mOsm/kg mOsm/kg . The reference range was not used to int erpret this result as normal/abnormal . Lab Interpretation (test Normal code = 38773-3) [facility]OSMOLALITY, [id number] 13:07:55 Test Item Value Reference Range Interpretation Comments OSMOLALITY URINE 529 mOsm/kg See_Comment [Automated message] (BEAKER) (test code = The sy stem which 614) generated this result transmitted ref erence range: 50-1,200 mOsm/kg. The reference range was not used to int erpret this result as normal/abnormal . Urea Nitrogen, random [id number] 12:57:04 Test Item Value Reference Range Interpretation Comments Urea Nitrogen, Ur 186 mg/dL (test code = 3095-7) SUE (test code = Reference Range: No SUE) NormalsOperator ID - [facility], random [id number] 12:57:04 Test Item Value Reference Range Interpretation Comments Urea Nitrogen, Ur 186 mg/dL (test code = 3095-7) SUE (test code = Reference Range: No SUE) NormalsOperator ID - [facility] Hollywood[facility] Nitrogen, random [id number] 12:57:04 Test Item Value Reference Range Interpretation Comments Urea Nitrogen, Ur 186 mg/dL (test code = 3095-7) SUE (test code = Reference Range: No SUE) NormalsOperator ID - [facility] Hollywood[facility] Nitrogen, random [id number] 12:57:04 Test Item Value Reference Range Interpretation Comments Urea Nitrogen, Ur 186 mg/dL (test code = 3095-7) SUE (test code = Reference Range: No SUE) NormalsOperator ID - [facility] Hollywood[facility] Nitrogen, random [id number] 12:57:04 Test Item Value Reference Range Interpretation Comments Urea Nitrogen, Ur 186 mg/dL (test code = 3095-7) SUE (test code = Reference Range: No SUE) NormalsOperator ID - [facility] HollywoodUREA NITROGEN, RANDOM [id number] 12:57:04 Test Item Value Reference Range Interpretation Comments UREA NITROGEN URINE (BEAKER) (test 186 mg/dL code = 538) Reference Range: No NormalsOperator ID - JSSodium, random [id number] 12:57:03 Test Item Value Reference Range Interpretation Comments Sodium Urine (test 155 meq/L code = 2955-3) SUE (test code = Reference Range: No SUE) NormalsOperator ID - [facility], random [id number] 12:57:03 Test Item Value Reference Range Interpretation Comments Sodium Urine (test 155 meq/L code = 2955-3) SUE (test code = Reference Range: No SUE) NormalsOperator ID - JS [facility] Centerodium, random [id number] 12:57:03 Test Item Value Reference Range Interpretation Comments Sodium Urine (test 155 meq/L code = 2955-3) SUE (test code = Reference Range: No SUE) NormalsOperator ID - JS [facility] Centerodium, random [id number] 12:57:03 Test Item Value Reference Range Interpretation Comments Sodium Urine (test 155 meq/L code = 2955-3) SUE (test code = Reference Range: No SUE) NormalsOperator ID - JS [facility] Centerodium, random [id number] 12:57:03 Test Item Value Reference Range Interpretation Comments Sodium Urine (test 155 meq/L code = 2955-3) SUE (test code = Reference Range: No SUE) NormalsOperator ID - JS [facility] CenterODIUM, RANDOM [id number] 12:57:03 Test Item Value Reference Range Interpretation Comments SODIUM URINE (BEAKER) (test code = 155 meq/L 243) Reference Range: No NormalsOperator ID - LENAOSMOLALITY, [id number] 12:52:21 Test Item Value Reference Range Interpretation Comments OSMOLALITY, SERUM (BEAKER) (test 290 mOsm/kg 275-295 code = 615) [id number] 12:52:14 Test Item Value Reference Range Interpretation Comments SODIUM (BEAKER) (test code = 381) 140 meq/L 136-145 Vocational Counselor ID - MARCOPregnancy Screen, [id number] 09:52:55 Test Item Value Reference Range Interpretation Comments Preg Test, Ur (test code = 2112-1) Negative Negative Lab Interpretation (test code = Normal 79789-8) [facility], [id number] 09:52:55 Test Item Value Reference Range Interpretation Comments Preg Test, Ur (test code = 2112-1) Negative Negative Lab Interpretation (test code = Normal 68286-9) [facility], [id number] 09:52:55 Test Item Value Reference Range Interpretation Comments Preg Test, Ur (test code = 2112-1) Negative Negative Lab Interpretation (test code = Normal 95254-8) [facility] HospitalPreancy Screen, [id number] 09:52:55 Test Item Value Reference Range Interpretation Comments Preg Test, Ur (test code = 2112-1) Negative Negative Lab Interpretation (test code = Normal 25070-6) [facility] Screen, [id number] 09:52:55 Test Item Value Reference Range Interpretation Comments Preg Test, Ur (test code = 2112-1) Negative Negative Lab Interpretation (test code = Normal 55468-9) [facility] SCREEN, [id number] 09:52:55 Test Item Value Reference Range Interpretation Comments TEST URINE (BEAKER) (test Negative Negative code = 583) BLOOD GAS, [id number] 08:02:40 Test Item Value Reference Range Interpretation [...] (BEAKER) (test code = 1819) 40.0 T4, [id number] 06:13:37 Test Item Value Reference Range Interpretation Comments FREE T4 (BEAKER) (test code = 655) 0.90 ng/dL 0.70-1.48 Vocational Counselor ID - ADMINTSH/FREE T4 IF [id number] 05:34:42 Test Item Value Reference Range Interpretation Comments THYROID STIMULATING HORMONE 6.331 uIU/mL 0.350-4.940 H (BEAKER) (test code = 772) Vocational Counselor ID - [id number] 05:26:57 Test Item Value Reference Range Interpretation Comments MAGNESIUM (BEAKER) (test code = 1.8 mg/dL 1.6-2.6 627) Vocational Counselor ID - [id number] 05:26:57 Test Item Value Reference Range Interpretation Comments PHOSPHORUS (BEAKER) (test code = 3.0 mg/dL 2.3-4.7 604) Vocational Counselor ID - MARCOCOMPREHENSIVE METABOLIC [id number] 05:26:56 Test Item Value Reference Range Interpretation [...] not appl icable for dialysis patien ts Vocational Counselor ID - MARCOXR CHEST 1 VIEW PORTABLE / [id number] 05:03:50 [facility] Annabel : 1975 Sex: FXR CHEST 1 VIEW [...] Signed By: Jaziel Monte10/29/2022 05:05 CDTWorkstation Name: [id number] 04:56:04 Test Item Value Reference Range Interpretation Comments PARTIAL THROMBOPLASTIN TIME 30.4 seconds 22.5-36.0 (WESLEY) (test code = 760) PROTHROMBIN TIME/[id number] 04:55:22 Test Item Value Reference Range Interpretation Comments PROTIME (BEAKER) 13.6 seconds 11.9-14.2 (test code = 759) INR (BEAKER) (test 1.06 See_Comment [Automat ed message] code = 370) The system [employer] generated this result transmitted ref erence range: <=5.90. The reference range was not used to int erpret this result as normal/abnormal . RECOMMENDED COUMADIN/WARFARIN INR THERAPY RANGESSTANDARD DOSE: 2.0 - 3.0 Includes: PROPHYLAXIS for venous thrombosis, systemic embolization; TREATMENT for venous thrombosis and/or pulmonary embolus.HIGH RISK: Target INR is 2.5-3.5 for patients with mechanical heart valves.CBC W/PLT COUNT & AUTO [id number] 04:50:18 Test Item Value Reference Range Interpretation [...] (BEAKER) (test code = 2801) BLOOD GAS, [id number] 04:03:20 Test Item Value Reference Range Interpretation [...] (BEAKER) (test code = 1819) 60.0 CALCIUM, [id number] 03:59:22 Test Item Value Reference Range Interpretation Comments CALCIUM IONIZED (BEAKER) (test 1.09 mmol/L 1.12-1.27 L code = 698) PH, BLOOD (BEAKER) (test code = 7.33 1810) Central [id number] 03:47:51Murray Elise NP 10/29/2022 3:48 AMCentral Line [...] to verify the correct patient, procedure, equipment, whanau support worker and site/side marked as required.Indications:vascular accessAnesthesia: local [...] NoneType of anesthesia: NoneGrafts or Implants: NoneCH[facility] HospitalCentral [id number] 03:47:51Murray Elise NP 10/29/2022 3:[address] [facility] Line Date/Time: 10/29/2022 3:47 AMPerformed by: Murray [...] to verify the correct patient, procedure, equipment, whanau support worker and site/side marked as required.Indications:vascular accessAnesthesia: local [...] NoneType of anesthesia: NoneGrafts or Implants: NoneCH[facility] HospitalCentral Line 2022-10-29 03:47:51Murray Elise NP 10/29/2022 3:48 [...] to verify the correct patient, procedure, equipment, whanau support worker and site/side marked as required.Indications:vascular accessAnesthesia: local [...] NoneComplications: NoneType of anesthesia: NoneGrafts or Implants: [facility] Centerral [id number] 03:47:51Murray Elise NP 10/29/2022 3:48 AMCentral Line [...] to verify the correct patient, procedure, equipment, whanau support worker and site/side marked as required.Indications:vascular accessAnesthesia: local [...] NoneComplications: NoneType of anesthesia: NoneGrafts or Implants: [facility] Centerral Line 2022-10-29 03:47:51Murray Elise NP 10/29/2022 3:48 [...] to verify the correct patient, procedure, equipment, whanau support worker and site/side marked as required.Indications:vascular accessAnesthesia: local [...] NoneType of anesthesia: NoneGrafts or Implants: NoneCH[facility] HospitalInsert Arterial [id number] 03:46:45Murray Elise NP 10/29/2022 3:47 AMInsert Arterial [...] to verify the correct patient, procedure, equipment, whanau support worker and site/side marked as required.Preparation: Patient was prepped and draped in the usual sterile fashion.Indications: multiple ABGs and hemodynamic monitoringLocation: right radial Anesthesia:Local Anesthetic: lidocaine 2% without epinephrineAllen's test normal: yesNeedle gauge: 18Seldinger technique: Seldinger technique usedNumber of attempts: 1Post- procedure: line sutured and dressing appliedPost-procedure CMS: normalPatient tolerance: patient tolerated the procedure well with no immediate complications [facility] Arterial [id number] 03:46:45Murray Elise NP 10/29/2022 3:47 AMInsert Arterial [...] to verify the correct patient, procedure, equipment, whanau support worker and site/side marked as required.Preparation: Patient was prepped and draped in the usual sterile fashion.Indications: multiple ABGs and hemodynamic monitoringLocation: right radial Anesthesia:Local Anesthetic: lidocaine 2% without epinephrineAllen's test normal: yesNeedle gauge: 18Seldinger technique: Seldinger technique usedNumber of attempts: 1Post- procedure: line sutured and dressing appliedPost-procedure CMS: normalPatient tolerance: patient tolerated the procedure well with no immediate complications [facility] Arterial [id number] 03:46:45Murray Elise NP 10/29/2022 3:47 AMInsert Arterial [...] to verify the correct patient, procedure, equipment, whanau support worker and site/side marked as required.Preparation: Patient was prepped and draped in the usual sterile fashion.Indications: multiple ABGs and hemodynamic monitoringLocation: right radial Anesthesia:Local Anesthetic: lidocaine 2% without epinephrineAllen's test normal: yesNeedle gauge: 18Seldinger technique: Seldinger technique usedNumber of attempts: 1Post- procedure: line sutured and dressing appliedPost-procedure CMS: normalPatient tolerance: patient tolerated the procedure well with no immediate complications [facility] Arterial [id number] 03:46:45Murray Elise NP 10/29/2022 3:47 AMInsert Arterial [...] to verify the correct patient, procedure, equipment, whanau support worker and site/side marked as required.Preparation: Patient was prepped and draped in the usual sterile fashion.Indications: multiple ABGs and hemodynamic monitoringLocation: right radial Anesthesia:Local Anesthetic: lidocaine 2% without epinephrineAllen's test normal: yesNeedle gauge: 18Seldinger technique: Seldinger technique usedNumber of attempts: 1Post- procedure: line sutured and dressing appliedPost-procedure CMS: normalPatient tolerance: patient tolerated the procedure well with no immediate complications [facility] HospitalInsert Arterial [id number] 03:46:45Murray Elise NP 10/29/2022 3:47 AMInsert Arterial [...] to verify the correct patient, procedure, equipment, whanau support worker and site/side marked as required.Preparation: Patient was prepped and draped in the usual sterile fashion.Indications: multiple ABGs and hemodynamic monitoringLocation: right radial Anesthesia:Local Anesthetic: lidocaine 2% without epinephrineAllen's test normal: yesNeedle gauge: 18Seldinger technique: Seldinger technique usedNumber of attempts: 1Post- procedure: line sutured and dressing appliedPost-procedure CMS: normalPatient tolerance: patient tolerated the procedure well with no immediate complications [facility] [id number] 00:00:00Ordered by an unspecified provider.[facility]-[id number] 00:00:00 Ordered by an unspecified provider.[facility]-SCANNED 2022-10-29 00:00:00Ordered by an unspecified provider.[facility]-[id number] 00:00:00Ordered by an unspecified provider.[facility]-[id number] 00:00:00Ordered by an unspecified provider.[facility] HospitalFungus culture + [id number] 08:28:10 Test Item Value Reference Range Interpretation Comments Result (test code = No fungus isolated in 6463-4) 28 days Fungus Smear (test No fungal elements seen code = 1406) [facility] HospitalFungus culture + [id number] 08:28:10 Test Item Value Reference Range Interpretation Comments Result (test code = No fungus isolated in 6463-4) 28 days Fungus Smear (test No fungal elements seen code = 1406) [facility] HospitalFungus culture + [id number] 08:28:10 Test Item Value Reference Range Interpretation Comments Result (test code = No fungus isolated in 6463-4) 28 days Fungus Smear (test No fungal elements seen code = 1406) [facility] HospitalFungus culture + [id number] 08:28:10 Test Item Value Reference Range Interpretation Comments Result (test code = No fungus isolated in St. [facility]) 28 days Fungus Smear (test No fungal elements seen code = 1406) [facility] [id number] 08:28:10 Test Item Value Reference Range Interpretation Comments Result (test code = No fungus isolated in [facility]) 28 days Fungus Smear (test No fungal elements seen code = 1406) [facility] + [id number] 08:28:10 Test Item Value Reference Range Interpretation Comments Result (test code = No fungus isolated in [facility]) 28 days Fungus Smear (test No fungal elements seen code = 1406) [facility] [id number] 08:28:10 Test Item Value Reference Range Interpretation Comments CULTURE (BEAKER) (test No fungus isolated in code = 1095) 28 days FUNGUS SMEAR (BEAKER) No fungal elements seen (test code = 1406) [id number] 05:54:28 Test Item Value Reference Range Interpretation Comments MAGNESIUM (BEAKER) (test code = 1.9 mg/dL 1.6-2.6 627) Vocational Counselor ID - BJBKPHROOTUCAPG1167-74-42 05:54:28 Test Item Value Reference Range Interpretation Comments PHOSPHORUS (BEAKER) (test code = 5.2 mg/dL 2.3-4.7 H 604) Vocational Counselor ID - MARCOBASIC METABOLIC [id number] 05:54:27 Test Item Value Reference Range Interpretation [...] not appl icable for dialysis patien ts Vocational Counselor ID - MARCOCBC W/PLT COUNT & AUTO [id number] 05:42:51 Test Item Value Reference Range Interpretation [...] PERCENT (BEAKER) (test code = 2801) CALCIUM, [id number] 05:36:04 Test Item Value Reference Range Interpretation Comments CALCIUM IONIZED (BEAKER) (test 1.12 mmol/L 1.12-1.27 code = 698) PH, BLOOD (BEAKER) (test code = 7.42 1810) Anaerobic [id number] 02:03:45 Test Item Value Reference Range Interpretation Comments Result (test code = No anaerobes isolated 6463-4) [facility] [id number] 02:03:45 Test Item Value Reference Range Interpretation Comments Result (test code = No anaerobes isolated 6463-4) [facility] [id number] 02:03:45 Test Item Value Reference Range Interpretation Comments Result (test code = No anaerobes isolated 6463-4) [facility] afrvkur5093-06-28 02:03:45 Test Item Value Reference Range Interpretation Comments Result (test code = No anaerobes isolated 6463-4) [facility] [id number] 02:03:45 Test Item Value Reference Range Interpretation Comments Result (test code = No anaerobes isolated 6463-4) [facility] [id number] 02:03:45 Test Item Value Reference Range Interpretation Comments Result (test code = No anaerobes isolated 6463-4) [facility] [id number] 02:03:45 Test Item Value Reference Range Interpretation Comments CULTURE (BEAKER) (test No anaerobes isolated code = 1095) STD Panel - CT/GC [id number] 17:37:44 Test Item Value Reference Interpretation Comments Range C. trachomatis NOT DETECTED RNA, TMA (test code = 9025542) N. gonorrhoeae NOT DETECTED REFERENCE RA NGE: NOT RNA, TMA (test DETECTED Meth odology: code = 5817468) Transcriptio n Mediated Amplification ( TMA)to detect RNA. The analytical perf ormance characteristics of thisassay, when used to test SurePat h(TM) specimens haveb een determined by [facility]. Th e modificationsha ve not been cleared or approved by the FDA. This assayhas b een validated pursu ant to the CLIA regula tions andis used for clinical purpos es. For additional information, pl ease refer tohttps://educa tion.[employer]. [employer]/faq /GVP792(This li nk is being provided for informational/e ducatio nal purposes on ly.) SUE (test code = Performing Lab SUE) *QDID [facility] [address] [address] Sylvie Gresham MD, PhD [facility]/GC [id number] 17:37:44 Test Item Value Reference Interpretation Comments Range C. trachomatis NOT DETECTED RNA, TMA (test code = 8045808) N. gonorrhoeae NOT DETECTED REFERENCE RA NGE: NOT RNA, TMA (test DETECTED Meth odology: code = 4867896) Transcriptio n Mediated Amplification ( TMA)to detect RNA. The analytical perf ormance characteristics of thisassay, when used to test SurePat h(TM) specimens haveb een determined by [facility]. Th e modificationsha ve not been cleared or approved by the FDA. This assayhas b een validated pursu ant to the CLIA regula tions andis used for clinical purpos es. For additional information, pl ease refer tohttps://DoYouRemembera Toutiao.[employer]. [employer]/faq /MHW684(This li nk is being provided for informational/e ducatio nal purposes on ly.) SUE (test code = Performing Lab SUE) *[employer] [place] [id number] Sylvie Gresham MD, PhD [facility] Panel - CT/GC [id number] 17:37:44 Test Item Value Reference Interpretation Comments Range C. trachomatis NOT DETECTED RNA, TMA (test code = 2559279) N. gonorrhoeae NOT DETECTED REFERENCE RA NGE: NOT RNA, TMA (test DETECTED Meth odology: code = 3490923) Transcriptio n Mediated Amplification ( TMA)to detect RNA. The analytical perf ormance characteristics of thisassay, when used to test SurePat h(TM) specimens haveb een determined by [employer]. Th e modificationsha ve not been cleared or approved by the FDA. This assayhas b een validated pursu ant to the CLIA regula tions andis used for clinical purpos es. For additional information, pl ease refer tohttps://educa Cloud Amenityon.[employer]. [employer]/faq /MZF803(This li nk is being provided for informational/e ducatio nal purposes on ly.) SUE (test code = Performing Lab SUE) *[employer] Sylvie Gresham MD, PhD [facility] Panel - CT/GC [id number] 17:37:44 Test Item Value Reference Interpretation Comments Range C. trachomatis NOT DETECTED RNA, TMA (test code = 3015968) N. gonorrhoeae NOT DETECTED REFERENCE RA NGE: NOT RNA, TMA (test DETECTED Meth odology: code = 0707358) Transcriptio n Mediated Amplification ( TMA)to detect RNA. The analytical perf ormance characteristics of thisassay, when used to test SurePat h(TM) specimens haveb een determined by [employer]. Th e modificationsha ve not been cleared or approved by the FDA. This assayhas b een validated pursu ant to the CLIA regula tions andis used for clinical purpos es. For additional information, pl ease refer tohttps://DoYouRemembera Toutiao.[employer]. [employer]/faq /LHL121(This li nk is being provided for informational/e ducatio nal purposes on ly.) SUE (test code = Performing Lab SUE) *[employer] [address] Sylvie Gresham MD, PhD [facility] Panel - CT/GC [id number] 17:37:44 Test Item Value Reference Interpretation Comments Range C. trachomatis NOT DETECTED RNA, TMA (test code = 8954396) N. gonorrhoeae NOT DETECTED REFERENCE RA NGE: NOT RNA, TMA (test DETECTED Meth odology: code = 6472182) Transcriptio n Mediated Amplification ( TMA)to detect RNA. The analytical perf ormance characteristics of thisassay, when used to test SurePat h(TM) specimens haveb een determined by [employer]. Th e modificationsha ve not been cleared or approved by the FDA. This assayhas b een validated pursu ant to the CLIA regula tions andis used for clinical purpos es. For additional information, pl ease refer tohttps://educa Toutiao.[employer]. [employer]/faq /ROS632(This li nk is being provided for informational/e ducatio nal purposes on ly.) SUE (test code = Performing Lab SUE) *[employer] Sylvie Gresham MD, PhD [facility] Panel - CT/GC [id number] 17:37:44 Test Item Value Reference Interpretation Comments Range C. trachomatis NOT DETECTED RNA, TMA (test code = 1602702) N. gonorrhoeae NOT DETECTED REFERENCE RA NGE: NOT RNA, TMA (test DETECTED Meth odology: code = 0178009) Transcriptio n Mediated Amplification ( TMA)to detect RNA. The analytical perf ormance characteristics of thisassay, when used to test SurePat h(TM) specimens haveb een determined by [employer] [facility]. Th e modificationsha ve not been cleared or approved by the FDA. This assayhas b een validated pursu ant to the CLIA regula tions andis used for clinical purpos es. For additional information, pl ease refer tohttps://educa tion.[employer]. [employer]/faq /ULP629(This li nk is being provided for informational/e ducatio nal purposes on ly.) SUE (test code = Performing Lab SUE) *QDID [facility] [id number] [place] [address] Sylvie Gresham MD, PhD [facility] METABOLIC [id number] 16:40:09 Test Item Value Reference Range Interpretation [...] not appl icable for dialysis patien ts Vocational Counselor ID - BSOsmolality, [id number] 12:43:16 Test Item Value Reference Range Interpretation Comments Osmolality, Ur (test code 245 See_Comment [ Automated message] = 2695-5) The system Sample6 generated this result transmitted ref erence range: 50-1,200 mOsm/kg mOsm/kg . The reference range was not used to int erpret this result as normal/abnormal . Lab Interpretation (test Normal code = 92203-3) [facility] HospitalOSMOLALITY, [id number] 12:43:16 Test Item Value Reference Range Interpretation Comments OSMOLALITY URINE 245 mOsm/kg See_Comment [Automated message] (BEAKER) (test code = The sy stem which 614) generated this result transmitted ref erence range: 50-1,200 mOsm/kg. The reference range was not used to int erpret this result as normal/abnormal . Sodium, random [id number] 11:48:27 Test Item Value Reference Range Interpretation Comments Sodium Urine (test 82 meq/L code = 2955-3) SUE (test code = Reference Range: No SUE) NormalsOperator ID - ADMIN [facility] HospitalUrea Nitrogen, random [id number] 11:48:27 Test Item Value Reference Range Interpretation Comments Urea Nitrogen, Ur 121 mg/dL (test code = 3095-7) SUE (test code = Reference Range: No SUE) NormalsOperator ID - ADMIN [facility] CenterODIUM, RANDOM [id number] 11:48:27 Test Item Value Reference Range Interpretation Comments SODIUM URINE (BEAKER) (test code = 82 meq/L 243) Reference Range: No NormalsOperator ID - ADMINUREA NITROGEN, RANDOM URINE 2022-08-10 11:48:27 Test Item Value Reference Range Interpretation Comments UREA NITROGEN URINE (BEAKER) (test 121 mg/dL code = 538) Reference Range: No NormalsOperator ID - ADMINCreatinine, random [id number] 11:48:26 Test Item Value Reference Range Interpretation Comments Creatinine, Ur 20.9 mg/dL (test code = 2161-8) SUE (test code = Reference Range: No SUE) NormalsOperator ID - ADMIN [facility]CREATININE, RANDOM [id number] 11:48:26 Test Item Value Reference Range Interpretation Comments CREATININE URINE (BEAKER) (test 20.9 mg/dL code = 375) Reference Range: No NormalsOperator ID - [facility]Wbay[facility] culture + gram stain 2022-08-10 11:24:49 Test Item Value Reference Range Interpretation Comments Result (test code = No growth 6463-4) Gram Stain Result <1+ gram positive cocci (test code = 1123) in pairs [facility] culture + gram [id number] 11:24:49 Test Item Value Reference Range Interpretation Comments Result (test code = No growth 6463-4) Gram Stain Result <1+ gram positive cocci (test code = 1123) in pairs [facility] culture + gram [id number] 11:24:49 Test Item Value Reference Range Interpretation Comments Result (test code = No growth 6463-4) Gram Stain Result <1+ gram positive cocci (test code = 1123) in pairs [facility] culture + gram [id number] 11:24:49 Test Item Value Reference Range Interpretation Comments Result (test code = No growth 6463-4) Gram Stain Result <1+ gram positive cocci (test code = 1123) in pairs [facility] culture + gram [id number] 11:24:49 Test Item Value Reference Range Interpretation Comments Result (test code = No growth 6463-4) Gram Stain Result <1+ gram positive cocci (test code = 1123) in pairs [facility] culture + gram [id number] 11:24:49 Test Item Value Reference Range Interpretation Comments Result (test code = No growth 6463-4) Gram Stain Result <1+ gram positive cocci (test code = 1123) in pairs [facility] CULTURE + GRAM [id number] 11:24:49 Test Item Value Reference Range Interpretation Comments CULTURE (BEAKER) (test No growth code = 1095) GRAM STAIN RESULT 4+ WBCs (BEAKER) (test code = 1123) GRAM STAIN RESULT <1+ gram positive cocci (BEAKER) (test code = in pairs [address]) T4, [id number] 11:12:44 Test Item Value Reference Range Interpretation Comments FREE T4 (BEAKER) (test code = 655) 1.25 ng/dL 0.70-1.48 Vocational Counselor ID - JACOBIDOSMOLALITY, [id number] 11:11:51 Test Item Value Reference Range Interpretation Comments OSMOLALITY, SERUM (BEAKER) (test 271 mOsm/kg 275-295 L code = 615) TSH/FREE T4 IF [id number] 10:36:27 Test Item Value Reference Range Interpretation Comments THYROID STIMULATING HORMONE 10.385 uIU/mL 0.350-4.940 H (BEAKER) (test code = 772) Vocational Counselor ID - GGNGPLGWGJNPXOZ8890-26-80 10:30:32 Test Item Value Reference Range Interpretation Comments CORTISOL, TOTAL (BEAKER) (test 11.9 ug/dL 3.7-19.4 code = 2755) Vocational Counselor ID - AANIESHAIDCT, DRAINAGE, SOFT TISSUE FLUID [id number] 09:56:00Reason for exam:->[facility]arian [facility] : 1975 [...] Whiteside Verified Date/Time: 08/10/2022 09:56:28 Reading Location: [address] Neuro Reading [facility] INTERP/[id number] 09:56:00FINAL REPORT CT guided fluid aspiration Clinical [...] Whiteside Verified Date/Time: 08/10/2022 09:56:28 Reading Location: [address] Neuro [facility]/[id number] 09:56:00FINAL REPORT CT guided fluid aspiration Clinical [...] Whiteside Verified Date/Time: 08/10/2022 09:56:28 Reading Location: [address] Neuro Reading [facility]P/[id number] 09:56:00FINAL REPORT CT guided fluid aspiration Clinical [...] Whiteside Verified Date/Time: 08/10/2022 09:56:28 Reading Location: [address] Neuro Reading [facility]RAD[facility] INTERP/[id number] 09:56:00FINAL REPORT CT guided fluid aspiration Clinical [...] lower quadrant fluid collection. Signed: Nilo Whiteside [facility] Verified Date/Time: 08/10/2022 09:56:28 Reading Location: [facility] C013 Neuro Reading Room [facility] INTERP/[id number] 09:56:00FINAL REPORT CT guided fluid aspiration Clinical [...] MDReport Verified Date/Time: 08/10/2022 09:56:28 Reading Location: [facility] C013V Neuro Reading Room [facility] CenterTread[facility] tolerance(Non-Nuclear Treadmill)2022-08-10 08:12:31 Protocol Name [...] PMConfirmed by Kelton Stapleton ([id number]) on :12:24 [facility] CenterTread[facility] tolerance(Non- Nuclear Treadmill)2022-08-10 08:12:31Protocol Name [...] PMConfirmed by Kelton Stapleton ([id number]) on :12:24 [facility] CenterTread[facility] tolerance(Non-Nuclear Treadmill)2022-08-10 08:12:31Protocol Name Lexiscan Time In [...] by Kelton Stapleton ([id number]) on 08/10/2022 8:12:24 [facility] CenterTread[facility] tolerance(Non-Nuclear Treadmill) 2022-08-10 08:12:31Protocol Name Lexiscan Time [...] PMConfirmed by Kelton Stapleton ([id number]) on 38:12:24 [facility] CenterTread[facility] tolerance(Non- Nuclear Treadmill)2022-08-10 08:12:31Protocol Name [...] PMConfirmed by Kelton Stapleton ([id number]) on 38:12:24 [facility] CenterBASI METABOLIC [id number] 06:16:41 Test Item Value Reference Range Interpretation [...] not appl icable for dialysis patien ts Vocational Counselor ID - ADMINSpecimen slightly [id number] 06:16:41 Test Item Value Reference Range Interpretation Comments MAGNESIUM (BEAKER) 1.9 mg/dL 1.6-2.6 Specimen slightly (test code = 627) hemolyzed Vocational Counselor ID - ADMINCBC (HEMOGRAM ONLY)2022-08-10 05:54:45 Test [...] 0-0 CELLS (BEAKER) (test code = 413) [id number] 04:19:50 Test Item Value Reference Range Interpretation Comments MAGNESIUM (BEAKER) (test code = 1.3 mg/dL 1.6-2.6 L 627) Vocational Counselor ID - MMBASIC METABOLIC [id number] 04:19:50 Test Item Value Reference Range Interpretation [...] not appl icable for dialysis patien ts Vocational Counselor ID - MMSpecimen slightly ictericCBC (HEMOGRAM ONLY)2022-08-09 [...] (BEAKER) (test code = 413) BASIC METABOLIC [id number] 06:27:34 Test Item Value Reference Range Interpretation [...] not appl icable for dialysis patien ts Vocational Counselor ID - DAMIÁN WSpecimen slightly ictericB-TYPE NATRIURETIC FACTOR (BNP) 2022-08-08 05:56:50 Test Item Value Reference Range Interpretation Comments B-TYPE NATRIURETIC PEPTIDE (BEAKER) 202 pg/mL 0-100 H (test code = 700) Vocational Counselor ID - BSCBC (HEMOGRAM ONLY)2022-08-08 05:36:13 Test [...] (BEAKER) (test code = 413) BASIC METABOLIC [id number] 05:39:11 Test Item Value Reference Range Interpretation [...] not appl icable for dialysis patien ts Vocational Counselor ID - ADMINSpecimen slightly ictericCBC (HEMOGRAM ONLY)2022-08-07 [...] 0-0 (BEAKER) (test code = 413) CT, [id number] 07:32:00Unlisted Reason for Exam - Click Yes and Enter Reason Below->NoProtocol Please Specify:->Standard ProtocolWill this procedure require oral contrast?->No [facility] 1975 Sex: FFINAL [...] [facility] Diagnostic Imaging Reading Room - [place] [address] [facility]LV[facility] WITH IV CONTRAST Standard [id number] 07:32:00FINAL REPORT CT abdomen and pelvis with [...] Location: [facility] Diagnostic Imaging Reading Room [place] [address] [facility]CT [facility]PELV[facility] WITH IV CONTRAST Standard [id number] 07:32:00FINAL REPORT CT abdomen and pelvis with [...] Dion Vigil Verified Date/Time: 08/06/2022 07:32:46 Reading Lo cation: [facility] Diagnostic Imaging Reading Room - [facility] F1 [address] [facility] CT ABDOMEN/PELVIS WITH IV CONTRAST Standard [id number] 07:32:00FINAL REPORT CT abdomen and pelvis with [...] Dion Vigil Verified Date/Time: 08/06/2022 07:32:46 Reading Loc ation: [facility] Diagnostic Imaging Reading Room - [facility] F1 [address] [facility] CT ABDOMEN/PELVIS WITH IV CONTRAST Standard [id number] 07:32:00FINAL REPORT CT abdomen and pelvis with [...] Dion Vigil Verified Date/Time: 08/06/2022 07:32:46 Reading Loc ation: [facility] Diagnostic Imaging Reading Room - [facility] F1 [address] [facility] [address] ABDOMEN/PELVIS WITH IV CONTRAST Standard [id number] 07:32:00FINAL REPORT CT abdomen and pelvis with [...] Verified Date/Time: 08/06/2022 07:32:46 Reading Loc ation: [facility] Diagnostic Imaging Reading Room - [facility] F1 [address] [facility] Screen, [id number] 21:59:05 Test Item Value Reference Range Interpretation Comments Preg Test, Ur (test code = 2112-1) Negative Negative Lab Interpretation (test code = Normal 75306-1) [facility]PREGNANCY SCREEN, [id number] 21:59:05 Test Item Value Reference Range Interpretation [...] CONCENTRATION Adequate (CELLAVISION)(BEAKER) (test code = 3438) Vocational Counselor ID - Salena comments: Slide comments:BASIC METABOLIC [...] not appl icable for dialysis patien ts Vocational Counselor ID - ADMINSpecimen slightly ictericPROTHROMBIN TIME/[id number] 21:25:45 Test Item Value Reference Range Interpretation [...] mechanical heart valves.CBC W/PLT COUNT & AUTO [id number] 21:20:49 Test Item Value Reference Range Interpretation [...] (BEAKER) (test code = 413) Transthoracic echo [id number] 16:18:18Ejection FractionSLEH ECHO HEARTLAB [facility] CenterTransthoracic echo [id number] 16:18:18Ejection FractionSLEH ECHO HEARTLAB [facility]CKB[facility] CenterTransthoracic echo [id number] 16:18:18Ejection FractionSLEH ECHO HEARTLAB [facility]ikiCKMOHA[facility] SYSTEMON [facility] HospitalTransthoracic echo result 2022-08-03 16:18:18Ejection FractionSLEH ECHO HEARTLAB [facility]ikiUofL [facility] InstituteTransthoracic echo [id number] 16:18:18Ejection FractionSLEH ECHO HEARTLAB [facility] Transthoracic echo [id number] 16:18:18Ejection FractionSLEH ECHO HEARTLAB [facility]ikiSaint [facility] Fort Thomas CenterBASIC METABOLIC [id number] 05:26:56 Test Item Value Reference Range Interpretation [...] not appl icable for dialysis patien ts Vocational Counselor ID - MMSpecimen slightly ictericCBC (HEMOGRAM ONLY)2022-08-03 [...] CONCENTRATION Decreased (CELLAVISION)(BEAKER) (test code = 3438) Vocational Counselor ID - Salena comments: Slide comments:CBC W/PLT COUNT & AUTO [id number] 14:52:12 Test Item Value Reference Range Interpretation [...] (BEAKER) (test code = 413) BASIC METABOLIC [id number] 13:40:34 Test Item Value Reference Range Interpretation [...] not appl icable for dialysis patien ts Vocational Counselor ID - ADMINSpecimen moderately ictericMYOCARD IMAGING, MULTI, PHARM, [id number] 15:12:00Unlisted Reason for Exam - Click Yes and Enter Reason Below->No[facility] : 1975 Sex: FFINAL REPORT PROCEDURE: MYOCARDIAL PERFUSION SPECT IMAGING (Rest/Stress)CPT CODE: 79105 INDICATION: Cardiac screening, high CAD risk CARDIOVASCULAR [...] Robbin Cerna MDReport Verified Date/Time: 08/01/2022 15:12:23 NM myocardial perfusion SPECT, pharm(Lexiscan)2022-08-01 15:12:00FINAL REPORT PROCEDURE: MYOCARDIAL PERFUSION SPECT IMAGING (Rest/Stress)CPT CODE: 24157 INDICATION: Cardiac screening, high CAD risk CARDIOVASCULAR [...] Signed: Robbin Cerna Verified Date/Time: 08/01/2022 15:12:23 [facility](Lexiscan) 2022-08-01 15:12:00FINAL REPORT PROCEDURE: MYOCARDIAL PERFUSION SPECT IMAGING (Rest/Stress)CPT CODE: 30215 INDICATION: Cardiac screening, high CAD risk CARDIOVASCULAR [...] Robbin Cerna MDReport Verified Date/Time: 08/01/2022 15:12:23 [facility] myocardial perfusion SPECT, pharm(Lexiscan) 2022-08-01 15:12:00FINAL REPORT PROCEDURE: MYOCARDIAL PERFUSION SPECT IMAGING (Rest/Stress)CPT CODE: 40712 INDICATION: Cardiac screening, high CAD risk CARDIOVASCULAR [...] Robbin Cerna MDReport Verified Date/Time: 08/01/2022 15:12:23 [facility] myocardial perfusion SPECT, pharm(Lexiscan) 2022-08-01 15:12:00FINAL REPORT PROCEDURE: MYOCARDIAL PERFUSION SPECT IMAGING (Rest/Stress)CPT CODE: 28576 INDICATION: Cardiac screening, high CAD risk CARDIOVASCULAR [...] Signed: Robbin Cerna Verified Date/Time: 08/01/2022 15:12:23 [facility]NM [facility] perfusion SPECT, pharm(Lexiscan) 2022-08-01 15:12:00FINAL REPORT PROCEDURE: MYOCARDIAL PERFUSION SPECT IMAGING (Rest/Stress)CPT CODE: 66849 INDICATION: Cardiac screening, high CAD risk CARDIOVASCULAR [...] prior study for comparison. Signed: Robbin Cerna [facility] Verified Date/Time: 08/01/2022 15:12:23 [facility] HospitalHEMOGLOBIN [id number] 13:52:52 Test Item Value Reference Range Interpretation [...] 5.7- 6.4% indicates increased risk for diabetes (prediabetes)."Vocational Counselor ID - ADM (CELLAVISION MANUAL DIFF)2022-08-01 08:26:35 [...] CONCENTRATION Decreased (CELLAVISION)(BEAKER) (test code = 3438) Vocational Counselor ID - Remy Dato-onUser comments: Slide comments:CBC W/PLT COUNT & AUTO [id number] 08:26:34 Test Item Value Reference Range Interpretation [...] (BEAKER) (test code = 413) HCG, QUANTITATIVE, [id number] 05:48:18 Test Item Value Reference Range Interpretation Comments GONADOTROPIN, CHORIONIC (HCG) QUANT < mIU/mL 0-10 (BEAKER) (test code = 649) Non- Females: <10 mIU/mL Females: Gestation Age Reference Range(mIU/mL) 0.2-1 Week 5-50 1-2 Weeks 50-500 2-3 Weeks 100-5,000 3-4 Weeks 500-10,000 4-5 Weeks 1,000-50,000 5-6 Weeks 10,000-100,000 6-8 Weeks 15,000- 200,000 2-3 Months 10,000-100,000 Vocational Counselor ID - DBBASIC METABOLIC PANEL 2022-08-01 05:41:39 [...] not appl icable for dialysis patien ts Vocational Counselor ID - DAMIÁN WSpecimen moderately [id number] 05:41:38 Test Item Value Reference Range Interpretation Comments MAGNESIUM (BEAKER) (test code = 1.7 mg/dL 1.6-2.6 627) Vocational Counselor ID Gisele STEEL EGSWIKMLVXX1795-05-34 05:41:38 Test Item Value Reference Range Interpretation Comments PHOSPHORUS (BEAKER) (test code = 3.0 mg/dL 2.3-4.7 604) Vocational Counselor ID Gisele STEEL WPT/APTT6015-46-94 05:39:59 Test Item Value Reference Range Interpretation [...] 2.5-3.5 for patients with mechanical heart valves.LIPID [id number] 22:24:08 Test Item Value Reference Range Interpretation [...] Borderline 130-159 High 160-189 Very High >=190 Vocational Counselor ID - [id number] ID - [id number] ID - [id number] slightly icteric U/S, ENDOVAGINAL (EV)2022-07-31 14:38:00Reason for exam:->concern for TOA [facility] : 1975 Sex: [...] follow-up imaging with ultrasound. Signed: Shauna Duran [facility] Verified Date/Time: 07/31/2022 14:38:44 U/S, [id number] 14:38:00Reason for exam:->concern for [facility] : 1975 Sex: FFINAL [...] MDReport Verified Date/Time: 07/31/2022 14:38:44 U/S, DUPLEX, [id number] 14:38:00 [facility] : 1975 Sex: FFINAL [...] Shauna Duran Verified Date/Time: 07/31/2022 14:38:44 [place] ysemtc4479-72-58 14:38:00FINAL REPORT TECHNIQUE: Transabdominal and transvaginal grayscale [...] Shauna Duran MDRnorma Verified Date/Time: 07/31/2022 14:38:44 [facility] kihobhe0411-89-28 14:38:00FINAL REPORT TECHNIQUE: Transabdominal and transvaginal grayscale [...] [facility] Verified Date/Time: 07/31/2022 14:38:44 [facility] Gashccuesez8454-04-61 14:38:00FINAL REPORT TECHNIQUE: Transabdominal and transvaginal grayscale [...] follow-up imaging with ultrasound. Signed: Shauna Duran [facility] Verified Date/Time: 07/31/2022 14:38:44 [facility] bfhkvp5048-46-34 14:38:00FINAL REPORT TECHNIQUE: Transabdominal and transvaginal grayscale [...] Signed: Shauna Duran Verified Date/Time: 07/31/2022 14:38:44 [facility] mkozfuo0846-40-06 14:38:00FINAL REPORT TECHNIQUE: Transabdominal and transvaginal grayscale [...] Signed: Shauna Duran Verified Date/Time: 07/31/2022 14:38:44 [facility] Jacbhdkgroh2598-80-59 14:38:00FINAL REPORT TECHNIQUE: Transabdominal and transvaginal grayscale ultrasound ofthe pelvis with color Doppler and spectral Doppler ultrasound of the ovaries. INDICATION: concern for TOA. COMPARISON: Outside facility CT from 07/30/2022. FINDINGS: UTERUS: The uterus measures 9.6 x 5.3 x 7.3 cm. The endometrial echo complex measures 1 cm, within normal limits. Nabothian cysts in thecervix. OVARIES/ADNEXA: The right ovary measures 2.9 x 1.5 x 3 cm, and the left ovary measures 5.8 x4.2 x 5 cm. Arterial and venous spectral waveforms detected in both ovaries. The left ovary is prominent, the likely fluid collections and tubular, enhancing structure in the left adnexum are not definitely visualized in this examination. An anechoic structure in the left ovary measures 2.1 cm and hasa configuration most like a follicle. PELVIS: No [...] Shauna Duran MDReport Verified Date/Time: 07/31/2022 14:38:44 [facility] xrpnum7926-72-00 14:38:00FINAL REPORT TECHNIQUE: Transabdominal and transvaginal grayscale [...] Shauna Duran MDReport Verified Date/Time: 07/31/2022 14:38:44 [facility] mhjvldm2608-26-82 14:38:00FINAL REPORT TECHNIQUE: Transabdominal and transvaginal grayscale [...] Signed: Shauna Duran Verified Date/Time: 07/31/2022 14:38:44 [facility] Mqcbfsvbaur7464-85-94 14:38:00FINAL REPORT TECHNIQUE: Transabdominal and transvaginal grayscale [...] Shauna Duran MDRnorma Verified Date/Time: 07/31/2022 14:38:44 [facility] idvfgw2185-65-88 14:38:00FINAL REPORT TECHNIQUE: Transabdominal and transvaginal grayscale [...] Shauna Duran MDReport Verified Date/Time: 07/31/2022 14:38:44 [facility] qldlock3086-99-79 14:38:00FINAL REPORT TECHNIQUE: Transabdominal and transvaginal grayscale [...] Signed: Shauna Duran Verified Date/Time: 07/31/2022 14:38:44 [facility] Cawikcqwwhw8272-68-86 14:38:00FINAL REPORT TECHNIQUE: Transabdominal and transvaginal grayscale [...] Signed: Shauna Duran Verified Date/Time: 07/31/2022 14:38:44 [facility] ivyiqx0415-73-42 14:38:00FINAL REPORT TECHNIQUE: Transabdominal and transvaginal grayscale [...] Shauna Duran MDReport Verified Date/Time: 07/31/2022 14:38:44 [facility] riewuwy3331-48-31 14:38:00FINAL REPORT TECHNIQUE: Transabdominal and transvaginal grayscale [...] Shauna Duran MDReport Verified Date/Time: 07/31/2022 14:38:44 [facility] Nvreaqdspfl8040-71-57 14:38:00FINAL REPORT TECHNIQUE: Transabdominal and transvaginal grayscale [...] Shauna Duran MDReport Verified Date/Time: 07/31/2022 14:38:44 [facility] W/PLT COUNT & AUTO [id number] 03:57:39 Test Item Value Reference Range Interpretation [...] H PERCENT (BEAKER) (test code = 2801) [id number] 03:56:52 Test Item Value Reference Range Interpretation Comments MAGNESIUM (BEAKER) (test code = 1.5 mg/dL 1.5-3.0 627) Vocational Counselor ID - [id number] ID - [id number] ID - [id number] ID - [id number] BASIC METABOLIC [id number] 03:55:31 Test Item Value Reference Range Interpretation [...] not appl icable for dialysis patien ts Vocational Counselor ID - [id number] ID - [id number] ID - [id number] ID - VZKG31Hqiktzqq ID - TLEG76Dozeoqhq ID - GVQV88Agtzlrbf ID - HMUL58Etjvdfdc ID - TOCV80Zjjlhrce ID - CTTD87Fgjnfxpa slightly ybnjwqoRKAOFOZXFX5051-17-12 03:54:07 Test Item Value Reference Range Interpretation Comments PHOSPHORUS (BEAKER) (test code = 4.0 mg/dL 2.5-4.5 604) Vocational Counselor ID - [id number] 18:37:08 Test Item Value Reference Range Interpretation Comments MAGNESIUM (BEAKER) (test code = 1.6 mg/dL 1.5-3.0 627) Vocational Counselor ID - [id number] ID - [id number] ID - [id number] ID - [id number], CHEST, 1 VIEW, NON [id number] 16:51:00Reason for exam:->SOB, wheezingShould this be performed at the bedside?->Yes [facility] 1975 Sex: FFINAL [...] Carrera Verified Date/Time: 07/30/2022 16:51:52 Reading Location: [facility] Radiology Reading Room BASI METABOLIC PANEL 2022-07-30 [...] not appl icable for dialysis patien ts Vocational Counselor ID - [id number] ID - [id number] ID - [id number] ID - [id number] ID - PKASV622Fohdvpwb ID - XPSDW307Sjhvkoli ID - QWJDR160Gnnrfpbf ID - FUIBJ530Eyvbsafe ID - LULFN590Nweojckz ID - [id number] ID - THIXE571Sqnukhlc ID - [id number] TIME/INR 2022-07-30 16:00:01 Test Item Value Reference [...] mechanical heart valves.CBC W/PLT COUNT & AUTO [id number] 15:52:31 Test Item Value Reference Range Interpretation [...] PERCENT (BEAKER) (test code = 2801) TISSUE [id number] 12:09:00Surgical Pathology Report Case: [id number] Authorizing Provider: Trudy James MD Collected: 02/17/2019 1126 Ordering Location: [address] Received: 02/17/2019 1147 Service Pathologist: Angela Beach MD Specimen: Gallbladder A. GALLBLADDER, CHOLECYSTECTOMY: - CHRONIC CHOLECYSTITIS WITH CHOLELITHIASIS. Signing Pathologist Direct Phone Line: [phone] signed by Angela Beach MD on 02/19/2019 at 12:09 [id number] renal mass Gallbladder Received in formalin labeled [...] trabeculated. The wall measures 0.2 cm thick. Automatic Pinsetter Adjuster sections are submitted in A1-A2, with the inked proximal margin is A1. PA/ew Performed.[facility], Department of Pathology, [address] [place] [address], [facility]dvqxh[facility], Department of Pathology,[address] [place] [address], [address] [facility], Departmentof Pathology, [address] [place] [address], THM W/PLT COUNT & AUTO [id number] 07:03:00 Test Item Value Reference Range Interpretation [...] (BEAKER) (test code = 2801) BASIC METABOLIC [id number] 06:57:00 Test Item Value Reference Range Interpretation [...] APPLICABLE FOR DIALYSIS PATIEN TS. HEPATIC FUNCTION [id number] 06:57:00 Test Item Value Reference Range Interpretation [...] (test code = 347) hemolyzed HEPATIC FUNCTION [id number] 06:57:00 Test Item Value Reference Range Interpretation [...] 72 U/L 6-55 H 347) BASIC METABOLIC [id number] 06:57:00 Test Item Value Reference Range Interpretation [...] PATIEN TS. CBC W/PLT COUNT & AUTO [id number] 06:28:00 Test Item Value Reference Range Interpretation [...] PERCENT (BEAKER) (test code = 2801) SCREEN, [id number] 07:28:00 Test Item Value Reference Range Interpretation Comments TEST URINE (BEAKER) (test Negative code = 583) [id number] 07:28:00 Test Item Value Reference Range Interpretation Comments MAGNESIUM (BEAKER) 2.0 mg/dL 1.6-2.6 Specimen moderately (test code = 627) hemolyzed [id number] 07:28:00 Test Item Value Reference Range Interpretation Comments PHOSPHORUS (BEAKER) 4.0 mg/dL 2.3-4.7 Specimen moderately (test code = 604) hemolyzed BASIC METABOLIC [id number] 07:28:00 Test Item Value Reference Range Interpretation [...] APPLICABLE FOR DIALYSIS PATIEN TS. HEPATIC FUNCTION [id number] 07:28:00 Test Item Value Reference Range Interpretation [...] Specimen moderately (test code = 347) hemolyzed [id number] 07:28:00 Test Item Value Reference Range Interpretation Comments LIPASE (BEAKER) (test code = 749) 31 U/L 8-78 CBC W/PLT COUNT & AUTO [id number] 07:10:00 Test Item Value Reference Range Interpretation [...] (BEAKER) (test code = 2801) U/S, ABDOMINAL, [id number] 23:50:00Abdomen limited area? Add comment if clarification [...] Date/Time: 02/15/2019 23:50:53 URINALYSIS W/ REFLEX URINE [id number] 22:43:00 Test Item Value Reference Range Interpretation [...] code = 516) SOURCE(BEAKER) (test code = 3837) HEPATIC FUNCTION [id number] 17:03:00 Test Item Value Reference Range Interpretation [...] Specimen slightly (test code = 347) hemolyzed [id number] 16:00:00 Test Item Value Reference Range Interpretation Comments MAGNESIUM (BEAKER) 2.1 mg/dL 1.6-2.6 Specimen slightly (test code = 627) hemolyzed BASIC METABOLIC [id number] 16:00:00 Test Item Value Reference Range Interpretation [...] hemolyz ed (test code = 364) PROTHROMBIN TIME/[id number] 15:31:00 Test Item Value Reference Range Interpretation [...] is 2.5-3.5 for patients wiht mechanical heart valves.[id number] 15:31:00 Test Item Value Reference Range Interpretation Comments PARTIAL THROMBOPLASTIN TIME 31.4 seconds 22.5-36.0 (BEAKER) (test code = 760) CBC W/PLT COUNT & AUTO [id number] 15:14:00 Test Item Value Reference Range Interpretation [...] Consult Notes Date/Time Note Provider Source 2022-11-28 7293-60-81V99:23:09Associated Patrick Wallace OT [facility] 10:23:09 Order(s): CONSULT ADULT OCCUPATIONAL THERAPY OT GENERAL EVALUATIONConsult received via [employer], EMR reviewed and evaluation completed 11/28/22. Patient referred to occupational therapy for evaluation and treatment. Patient is 47 year old female with chest pain, NSTEMI. 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 Luke's Health – Patients Medical CenterDepartment of Rehabilitation ServicesTotal Timed Treatment Codes: 10 [...] to enable patient to complete evaluation component. 63659-9Fqazdvq almhNW4528-38-07R72:15:28Consult noteTXT1.2.840.088412.1.13.104.2.7.2 .525045|[id number] for patient vpnb54562-2Gkhbufd [id number] C Lawmary [address] Zi[id number] ZKVESUVUTZYAEAPYMMXMAC5524-49-25O85: 15:281.2.840.820632.1.72.3.15|1.2.84 0.092943.1.13.104.2.7.2.727879_18983 01603 2022-11-28 8381-10-94Q85:45:00Associated Savanna Juarez PT [facility] 09:45:00 Order(s): CONSULT ADULT PHYSICAL [...] setting of methamphetamine use), CAD c/b unspecified ME (02/2022 per CareEverywhere), HFpEF, hypertension, hyperlipidemia, COPD, GERD, and seizure disorder (not on medications) presenting as a transfer from [facility] for NSTEMI. Troponin peaked at 1.34 and [...] setting of methamphetamine use), CAD c/b unspecified ME (02/2022 per CareEverywhere), HFpEF, hypertension, hyperlipidemia, COPD, GERD, and seizure disorder (not on medications) presenting as a transfer from [facility] for NSTEMI. Troponin peaked at 1.34 and [...] a SS house, and sisterDME: Wheel Chair y1Aofjd level of Mobility: requires assistance with transfers, [...] denies pain before and after sessionCOMMUNICATIONPrimary Language: Angolan Able to Verbalize needs: Yes Vision:good; no [...] Time in Minutes: 33 minSavanna Juarez PT, DPTUnGraham Regional Medical CenterRehabilitation Services A physical therapy [...] clinical presentation with unstable and unpredictable characteristics 45657-4Admxdnc jlasEZ3451-99-42H11:53:18Consult noteTXT1.2.840.208363.1.13.104.2.7.2 .187054|[id number] for patient qrnn90188-6Phiwxmu [id number] Pallera [id number] NFAHSGIPPCHEIWGSRZPHNV7745-25-21M96: 53:181.2.840.213445.1.72.3.15|1.2.84 0.560121.1.13.104.2.7.2.727879_18983 34353 2022-11-25 3671-62-51E59:49:18Associated PN-NEUROLOGY [facility] 18:49:18 Order(s): CONSULT NEUROLOGY STROKE SERVICE [...] with Dr. Rivera, Neurology Faculty Stroke pager: [phone] Shahnaz Borges, MDPGY-4, NeurologyPager: [phone] signed by Romaine Rivera MD at 11/26/2022 [...] reported) and/or communicating results to the patient/family/caregiver. 76716-3Zfuaruz cpqrID9828681Pvbjmcvh, Hashem1.2.840.498110.1.13.104.2.7.2. 873413BknnztzvRehfqiNN6227-24-16F60: 21:11Consult noteTXT1.2.840.659439.1.13.104.2.7.2 .458168|[id number] for patient ezyr47940-8Bpgpdxv pwtzIMTZ-HCSTJSIOVKG-WVUJDWGCIFUQVYJ [address] StreetGc[id number] REJDYWSJGIZBVZVQXHUFPD7969-59-92K60: 21:111.2.840.819764.1.72.3.15|1.2.84 0.666542.1.13.104.2.7.2.727879_18956 52327 2022-11-25 9349-99-15L41:00:00Associated Analy Bonner [facility] 18:00:00 Order(s): CONSULT PS PASTORAL Filippo CARE Sql Bi Developer visited with patient in response to consult for pastoral care and support. Patient was awake and acknowledged basketball scout's presence. Pt was alone in room. The Pt said she was of Gnosticism nicole. The PT. Expressed to the Sql Bi Developer of some fear,about her upcomming surgery that going to be done on her heart.Pt asked the Sql Bi Developer to pray for her and for God to give her peace. The Sql Bi Developer provided spiritual support through prayer of healing, peace and comfort. Sql Bi Developer provided pastoral presence, and validated feelings. Pastoral care will continue to follow up as needed. Rev.Analy Ferro [facility] Department of Pastoral CarePh: [phone]: [phone] 93673-3Rkpzdgz gxlgNJ7340-32-86S93:31:33Consult noteTXT1.2.840.946757.1.13.104.2.7.2 .325180|[id number] for patient wtqi56425-1Cnmwlhb zpaaDL268188364Pjbwvrd M [address][id number] HAAZMBAMKOWDOMHQUUPAWV6917-28-99A37: 31:331.2.840.029712.1.72.3.15|1.2.84 0.496012.1.13.104.2.7.2.727879_18956 18823 2022-11-25 0161-87-08P83:53:13Associated PED-PEDIATRICS [facility] 10:53:13 Order(s): CONSULT ALLERGY ALLERGY & IMMUNOLOGY CONSULT NOTEDATE OF SERVICE: 11/25/22REASON FOR CONSULT: Aspirin allergyHPI: Patient is a 47 year old female with a past medical history significant for recent hemorrhagic stroke (10/29/22; 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 - Plan also explained to via british virgin islander translatorPatient seen with Dr. Magaña. Thank you for this consult. We will continue to follow the patient peripherally. Please do not hesitate to reach out to the on-call fellow with additional questions or concerns. Bere Arroyo, GULFPORT BEHAVIORAL HEALTH SYSTEMllergy and Immunology Fellow, PGY-4 ssociated attestation - [...] see the fellow's note for additional details. 04150-1Vttihie gmjdGA7048529Oijr, Sarah1.2.840.208999.1.13.104.2.7.2.8 62630QkgnZyjugVL7032-34-96W17:58:19C onsult noteTXT1.2.840.996392.1.13.104.2.7.2 .950352|[id number] for patient pqab61514-4Aozyptc snxdTMFVM-TKFRWEZROUCAC-QCVFWXILNBSP MBUTMB - Health[address] [employer] UravOrkapuzrsIisrhivooPMYI0965933597 KPVATZEERFTDYEYPYZVDFE7532-31-03X88: 58:191.2.840.354904.1.72.3.15|1.2.84 0.379416.1.13.104.2.7.2.727879_18954 85678 2022-11-24 7275-73-56O94:08:12Associated NS-NEUROLOGICAL [facility] 16:08:12 Order(s): CONSULT SURGERY NEUROSURGERY NEUROSURGERY CONSULTATION HISTORY AND PHYSICALAttending Neurosurgeon: Dr. 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 HFpEF, hypertension, hyperlipidemia, COPD, GERD, and seizure disorder (not on medications) presenting as a transfer from [facility] for NSTEMI currently on heparin drip. Pt [...] 100% 100% Weight: Height: Awake, alert, oriented d8OHVMJ bilaterally at 3mmEOMI bilaterallySlight left lower facial [...] setting of methamphetamine use), CAD c/b unspecified ME (02/2022 per CareEverywhere), HFpEF, hypertension, hyperlipidemia, COPD, GERD, and seizure disorder (not on medications) presenting as a transfer from [facility] for NSTEMI currently on heparin drip. NSGY consulted for recs regarding heparin in light of recent hemorrhagic stroke. Pt at neurologic baseline s/p stroke.Recommendations:No neurosurgical interventionPlease consult neurology for management and recommendations of anticoagulation w/ hx of hemorrhagic strokeWill sign off at this timeChflory White MDNeurosurgery ServiceFor inquiries please page [phone] signed by Burton Howell MD at 11/25/2022 12:23 PM CDTAssociated attestation - Burton Howell MD - 11/25/2022 12:23 PM CDT I personally evaluated and am primary in decision making on, Geetha Minor, and I agree with the documentation by Sinan White MD,neurosurgery resident.65115-6Fmoucue glngYV0815512Jdwxsp, Rudy P1.2.840.726816.1.13.104.2.7.2.10355 8KeldawTrewUDQ5299-49-47M73:23:14Con sult noteTXT1.2.840.942104.1.13.104.2.7.2 .314801|[id number] for patient jmyg70588-2Zfuzdxw noteLNNS-NEUROLOGICAL SURGERYNS-NEUROLOGICAL SURGERY[address] Vf[id number] ZQLNXHHVUAPPXVQMBIHPVW9560-76-27G80: 23:141.2.840.568911.1.72.3.15|1.2.84 0.504297.1.13.104.2.7.2.727879_18954 17814 History and Physical Notes Date/Time Note Provider Source 2022-11-24 11:33:08 8806-25-92N82:33:08Formatting of this note [facility] is [...] setting of methamphetamine use), CAD c/b unspecified ME (02/2022 per CareEverywhere), HFpEF, hypertension, hyperlipidemia, COPD, GERD, and seizure disorder (not on medications) presenting as a transfer from [facility] for NSTEMI. On my interview, patient reports [...] 454 ms QTC Calculation(Bazett) 460 ms P [place] 19 degrees R [place] 64 degrees T [place] 254 degrees Normal sinus rhythm Possible Left [...] sedated at OSH prior to transfer to [facility] NICU, extubated on 10/30, required nicardipine [...] sided hemiparesis. Transferred to the floor on 8/23. Cleared by speech therapy for soft foods. [...] develop- Sedation/Analgesia: NoneRespCOPDHx tobacco abuse- DuoNebs prn- M2JGEhqpchedqzbyfoTZXYDXWglvj painReported CAD HFpEFBradycardiaHTNHLDPatient presenting as a transfer from [facility] with NSTEMI. Troponin elevated here on [...] evaluation of volume status- CXR- Will need [facility] this admission- Continue Plavix (allergic to ASA)- [...] prophylaxis: heparinLines/Catheters:Peripheral IV 11/24/22 Right Antecubital Inserted FACILITY COORDINATOR (Active) Number of days: 0 Dispo: CCUPrognosis: GuardedCode Status: FullJordan Cierra Willis, DOPGY-3, Department of Internal Medicine ssociated [...] ordering referrals and/or communicating with other health critical care technician (when not separately reported), documenting clinical information in the electronic or other health record, and care coordination (not separately reported).- hemodynamically stable- Neurosurgery consult for systemic AC / DAPT in the future, given h/o ICH- allergy consult for ASA desensitizationJOSE Cierra GONZALEZ MD, MSHA, FACC, [facility] HOSPITALAAssistant ProfessorCardiology, Advanced Heart Failure, LVAD & Transplant ServiceDate of service: [id number] and physical twfvMH0824190Lpdmkoykcc-Tonmpuyw, Jose C1.2.840.645054.1.13.104.2.7.2.591409Djwlh soajq-YqmaagkxHrlvBVN4169-04-10T15:30:41Hi story and physical noteTXT1.2.840.248637.1.13.104.2.7.2.31307 9|[id number] for patient yxaq12664-6Lnzcmjv and physical noteLNUT[address] [id number] ULFLNOFHXMLOVXGQ4033-37-56S93:30:411.2.840 .343009.1.72.3.15|1.2.840.137212.1.13.104. 2.7.2.727879_1895394769 Notes Date/Time Note Provider Source 2022-11-29 13:58:46 9681-44-94Z22:58:46Formatting Desi hernandez LVN [facility] of this note is different from the original.2nd call no contact. 92753-7Pwybwyfyp encounter SgvhBA5197-60-46T42:58:57Teleph one encounter NoteTXT1.2.840.981526.1.13.104. 2.7.2.852496|[id number] ble for patient omyg73855-6SmtpQW196255712Jvfak kellie Sotelo [address] StreetTXTX[address] 50033FRMAKULGMBXGRIZXTYNNEY3825 -09-14T13:58:571.2.840.004514.1 .72.3.15|1.2.840.982340.1.13.10 4.2.7.2.727879_1899775951 2022-11-29 12:58:12 2138-26-14I28:58:12Formatting [facility] of this note might be different from the original.TRANSITIONAL CARE MANAGEMENT ASSESSMENT11/29/2022 Geetha MinorPuvrbskn373530IKelbngo Martinez is a 47 year old /White female was admitted on 11/24/[address] She was discharged on 11/28/22 with discharge disposition of HR- Routine Discharge.Admitting Physician: Ryne Yoder FDischarge Diagnosis: NSTEMI (non-ST elevated myocardial infarction) [I21.4]No contact.No linked episodesTCM Vvl-ptyn-rl-face outreach documentation: Future Appointments: [id number] encounter [id number]:58:44Teleph one encounter [id number]. [id number] [facility] [id number][id number] 40117IKAOBENNYZTKOBAYZZVMAN8900 -09-14T12:58:441.2.840.993507.1 .72.3.15|1.2.840.102453.1.13.10 4.2.7.2.727879_[id number] 2022-11-28 16:51:33 1714-38-83O82:51:33Formatting Sylvia Abad rustava [facility] of this note might be different [...] of new skin breakdownOutcome: Adequate for discharge 84144-3Xeup of care demfPL7646-31-64B89:51:41Plan of care noteTXT1.2.840.574185.1.13.104. 2.7.2.758013|[id number] [facility] [id number] feroz Iniugez [facility] - [address]JsebRqufistueGclvbedcrRBNE82484 69587UXCCVXJCAATRQVMHOUFOQP5983 -09-13T16:51:411.2.840.979750.1 .72.3.15|1.2.840.629902.1.13.10 4.2.7.2.727879_[id number] 2022-11-28 01:14:27 0523-14-83Y20:14:27Formatting Trang mendes [facility] of this note might be different [...] of new skin breakdownOutcome: Progressing as expected 44833-1Cqxp of care gjkzDO9765-98-84U27:14:30Plan of care noteTXT1.2.840.669158.1.13.104. 2.7.2.542442|[id number] ble for patient opab52995-9JilpAG061742166Jtvgu anders Morton RNUT[address] KmgjYoixdotfeNxunjrpzmIPMD87621 51537LOWXJBAOGCZFFQWLZSPZGC9924 -09-13T01:14:301.2.840.129441.1 .72.3.15|1.2.840.058444.1.13.10 4.2.7.2.727879_[id number] 2022-11-27 06:31:47 0833-31-13P84:31:47Formatting Laisha Bartlett RN [facility] of this note might be different [...] of new skin breakdownOutcome: Progressing as expected 32479-0Acty of care bqfxHY2592-18-62E18:31:49Plan of care noteTXT1.2.840.584657.1.13.104. 2.7.2.837118|[id number] ble for patient [id number] N. Au RNUTMB[address] LvqaWrkkslttuCjqkaqcalBMOH78692 68894NEXENXGNPPSWKCUSHPFNNB2864 -09-12T06:31:491.2.840.943942.1 .72.3.15|1.2.840.009616.1.13.10 4.2.7.2.727879_[id number] 2022-11-26 21:20:10 1860-72-76A00:20:10Formatting Angelia Cardenas RN [facility] of this note might be different [...] Reduction in pain sensationOutcome: Progressing as expected 59459-8Jpfb of care vkuaHD9660-58-88I25:20:13Plan of care noteTXT1.2.840.504802.1.13.104. 2.7.2.012244|[id number] ble for patient ggph72497-3VovqUG707065592Fnvrg y D Burns RN[address]TXTX[address] 39449DVQLRVHZBGBQDULNXIIYWK7129 -09-11T21:20:131.2.840.425069.1 .72.3.15|1.2.840.138655.1.13.10 4.2.7.2.727879_[id number] 2022-11-26 17:36:46 6906-05-27T77:36:46Formatting Sushma Velazquez [facility] of this note might be different from [...] Reduction in pain sensationOutcome: Progressing as expected 82690-8Mnhj of care itgfAY3295-72-82Y60:36:51Plan of care noteTXT1.2.840.003188.1.13.104. 2.7.2.364572|[id number] ble for patient qdmv18581-5DskoQP924482772Oyyxd a D Cantu RN[address]TX[address] 01169RGFTQXRSZMTLUYHXMJTEDM8142 -09-11T17:36:511.2.840.460746.1 .72.3.15|1.2.840.096388.1.13.10 4.2.7.2.727879_[id number] 2022-11-25 23:27:36 9081-51-15F53:27:36Formatting Chuyita lackey [facility] of this note might be different RN from the original.Problem: Falls, Risk ofGoal: Absence of fallsOutcome: Progressing as expected Problem: PainGoal: Control of pain at or below patient's documented comfort goalOutcome: Progressing as expected 05790-3Texx of care wmqmPC5099-52-29X51:27:40Plan of care noteTXT1.2.840.696264.1.13.104. 2.7.2.447367|[id number] ble for patient wlkx29701-4LfnsSV121436705Peuej jorje Rosen RN[address]vd[place] 75448NHMNGUKVAVZFIKOENSFQOA5091 -09-10T23:27:401.2.840.978390.1 .72.3.15|1.2.840.572652.1.13.10 4.2.7.2.727879_[id number] 2022-11-25 17:36:51 7616-15-23K35:36:51Formatting Angelia causey RN [facility] of this note might be different [...] of medication managementOutcome: Not progressing as expected 05336-2Xnjh of care toeqIU7201-52-64S51:36:56Plan of care noteTXT1.2.840.321464.1.13.104. 2.7.2.113070|[id number] [facility] zzpn06964-1DfdeYS616383420Riqgq y Annabel Carrion RNUTMBUT - [address] StreetTifsPwrucclytNtahadepdDRIM380[address] 22368QSXQOMQAQLFVQCDGGGKLQU9830 -09-10T17:36:561.2.840.251726.1 .72.3.15|1.2.840.432636.1.13.10 4.2.7.2.727879_[id number] 2022-07-30 20:59:40 [id number]:59:40 YAIMA GOMEZ [facility] CONSULTATIONGEETHA MINORFACILITY: SLSLBilkatie #: [id number] Room: [address] [place] [address] #: [id number] : 1975DATE OF ADMISSION: 3DATE OF CONSULTATION: 07/30/2022REQUESTING PHYSICIAN:SR RISK MANAGEMENT CONSULTANT: Yaima Gomez, TRENTONonsultation is with lower quadrant pain, possible tubo-ovarianabscesses.HISTORY OF PRESENT ILLNESS: 47-year-old female with history ofpain, left lower quadrant that began three days ago, was at [facility] and transferred here this morning. Thought [...] this. Leukocytosis. 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 We will follow with you.PopDF/MODLDD: 07/30/2022 17:17:10DT: 07/30/2022 20:59:40Job #: [id number] signed by: YAIMA GOMEZ at 2022-07-30 17:17:10.293NTIzimbrxbvihr4865- 05-15T20:59:235113-89-86O21:29: [id number], OVREHQHCBEYLDQEMFZCXH4313-13-32 T11:29:34
[2023-02-13 11:10] LABS: Absolute Lymphocytes (CBC) 1.8 K/uL (0.7-4.9); Hematocrit 30.9 % (36.0-45.0); Lymphocytes % 37.4 % (15.3-44.8); MCV 90.8 fL (80-100); MPV 7.8 fL (7.6-11.3); Platelets 173 thou/uL (152-406)
[2023-02-13 11:18] LABS: Protime INR 0.99
[2023-02-13 11:26] LABS: Albumin 3.8 g/dL (3.4-5.0); Bilirubin Direct 0.2 mg/dL (0-0.2); Bilirubin Indirect, Calculated 0.5 mg/dL (0.2-0.8); Bilirubin Total 0.7 mg/dL (0.2-1.0); Magnesium 1.5 mg/dL (1.6-2.4); Potassium 3.3 mEq/L (3.5-5.1); Protein, Total 6.8 g/dL (6.4-8.2)
[2023-02-13 11:41] LABS: Troponin High Sensitivity 65.1 pg/mL (<58.9)
[2023-02-13] MEDS ORDERED: NA CHLORIDE 0.9% 500 ML ONE (11:45)
--- NOTE | 2023-02-13 11:55 | RAD REPORT ---
EXAM DESCRIPTION: [place] Single View02/13/2023 11:24 am CLINICAL HISTORY: Chest pain COMPARISON: none FINDINGS: The lungs appear clear of acute infiltrate. The heart is mildly enlarged Callus formation is present about subacute left rib fractures IMPRESSION: No acute abnormalities displayed
[2023-02-13] MEDS ORDERED: CLOPIDOGREL 75 MG TABLET ONE (12:11)
[2023-02-13] MEDS ORDERED: ONDANSETRON 4 MG/2 ML VIAL ONE (12:11)
[2023-02-13] MEDS ORDERED: FAMOTIDINE 20 MG/2 ML VIAL IV ONE (12:11)
[2023-02-13] MEDS ORDERED: MORPHINE 4 MG/ML SYR ONE (12:11)
[2023-02-13] MEDS ORDERED: METOPROLOL TAR 50 MG TAB ONE (12:11)
[2023-02-13] MEDS ORDERED: ENOXAPARIN 60 MG/0.6 ML SQ ONE (12:12)
--- NOTE | 2023-02-13 12:12 | EDPHYS ---
Physician Documentation [facility] Name: Geetha Khan Age: 47 yrs Sex: Female : 1975 Arrival Date: 02/13/2023 Time: 10:25 Bed 20 Private MD: ED Physician Michael Grimm HPI: 02/13 12:02 This 47 yrs old Female presents to ER via EMS with complaints of Chest Pain. juan diego 12:02 The patient or guardian reports chest pain that is located primarily in the substernal [place]an [place]go area, anterior chest wall. Onset: just prior to arrival, this morning. The pain does not radiate. Associated signs and symptoms: Pertinent positives: dizziness, shortness of breath. The chest pain is described as a pressure. Duration: The patient or guardian reports multiple episodes, with no pattern. Modifying factors: The symptoms are alleviated by nothing. the symptoms are aggravated by nothing. Severity of pain: At its worst the pain was moderate in the emergency department the pain has improved mildly. The patient has experienced similar episodes in the past, multiple times. 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 - Social history:: Smoking status: Patient/guardian denies using tobacco. - Family history:: not pertinent. ROS: 12:02 Constitutional: Negative for fever, chills, and weight loss, Eyes: Negative for injury, ju[place] pain, redness, and discharge, ENT: Negative for injury, pain, and discharge, Neck: Negative for injury, pain, and swelling, Respiratory: Negative for shortness of breath, cough, wheezing, and pleuritic chest pain, Abdomen/GI: Negative for abdominal pain, nausea, vomiting, diarrhea, and constipation, Back: Negative for injury and pain, : Negative for injury, bleeding, discharge, and swelling, MS/Extremity: Negative for injury and deformity, Skin: Negative for injury, rash, and discoloration, Neuro: Negative for headache, weakness, numbness, tingling, and seizure, Psych: Negative for depression, anxiety, suicide ideation, homicidal ideation, and hallucinations, Allergy/Immunology: Negative for hives, rash, and allergies, Endocrine: Negative for neck swelling, polydipsia, polyuria, polyphagia, and marked weight changes, Hematologic/Lymphatic: Negative for swollen nodes, abnormal bleeding, and unusual bruising, 12:02 Cardiovascular: Positive for chest pain, Exam: 12:02 Constitutional: This is a well developed, well nourished patient who is awake, alert, juan [place]go and in no acute distress. Head/Face: Normocephalic, atraumatic. Eyes: Pupils equal round and reactive to light, extra-ocular motions intact. Lids and lashes normal. Conjunctiva and sclera are non-icteric and not injected. Cornea within normal limits. Periorbital areas with no swelling, redness, or edema. ENT: Nares patent. No nasal discharge, no septal abnormalities noted. Tympanic membranes are normal and external auditory canals are clear. Oropharynx with no redness, swelling, or masses, exudates, or evidence of obstruction, uvula midline. Mucous membranes moist. Neck: Trachea midline, no thyromegaly or masses palpated, and no cervical lymphadenopathy. Supple, full range of motion without nuchal rigidity, or vertebral point tenderness. No Meningismus. Chest/axilla: Normal chest wall appearance and motion. Nontender with no deformity. No lesions are appreciated. Cardiovascular: Regular rate and rhythm with a normal S1 and S2. No gallops, murmurs, or rubs. Normal PMI, no JVD. No pulse deficits. Respiratory: Lungs have equal breath sounds bilaterally, clear to auscultation and percussion. No rales, rhonchi or wheezes noted. No increased work of breathing, no retractions or nasal flaring. Abdomen/GI: Soft, non-tender, with normal bowel sounds. No distension or tympany. No guarding or rebound. No evidence of tenderness throughout. Back: No spinal tenderness. No costovertebral tenderness. Full range of motion. Skin: Warm, dry with normal turgor. Normal color with no rashes, no lesions, and no evidence of cellulitis. MS/ Extremity: Pulses equal, no cyanosis. Neurovascular intact. Full, normal range of motion. Neuro: Awake and alert, GCS 15, oriented to person, place, time, and situation. Cranial nerves II-XII grossly intact. Motor strength 5/5 in all extremities. Sensory grossly intact. Cerebellar exam normal. Normal gait. Psych: Awake, alert, with orientation to person, place and time. Behavior, mood, and affect are within normal limits. 12:02 ECG was reviewed by the Attending Physician. Vital Signs: 10:26 BP 153 / 93; Pulse 80; Resp 16 S; Temp 97.3(TE); Pulse Ox 96% on R/A; Weight 65.77 kg aa5 (R); Height 5 ft. 2 in. (R); 11:30 BP 136 / 73; Pulse 93; Resp 18; Pulse Ox 99% on R/A; cm10 13:03 BP 126 / 81; Pulse 60; Resp 18; Pulse Ox 100% on R/A; cm10 10:26 Body Mass Index 26.52 (65.77 kg, 157.48 cm) aa5 MDM: 10:27 Patient medically screened. [facility] 02/13 10:30 Order name: Basic Metabolic Panel; Complete Time: 11:48 [facility] 02/13 10:30 Order name: CBC with Diff; Complete Time: 11:48 [facility] 02/13 10:30 Order name: D-Dimer; Complete Time: 11:48 [facility] 02/13 10:30 Order name: LFT's; Complete Time: 11:48 [facility] 02/13 10:30 Order name: Magnesium; Complete Time: 11:48 [facility] 02/13 10:30 Order name: NT PRO-BNP; Complete Time: 11:48 [place] 02/13 10:30 Order name: PT-INR; Complete Time: 11:48 [facility] 02/13 10:30 Order name: Troponin HS; Complete Time: 11:48 [facility] 02/13 10:30 Order name: Lipase; Complete Time: 11:48 [facility] 02/13 10:30 Order name: Urinalysis w/ reflexes [facility] 02/13 10:30 Order name: PREGU [facility] 02/13 10:30 Order name: UDS [facility] 02/13 13:05 Order name: Magnesium [facility] 02/13 13:05 Order name: Phosphorus [facility] 02/13 13:05 Order name: Basic Metabolic Panel [facility] 02/13 13:05 Order name: Basic Metabolic Panel [facility] 02/13 13:05 Order name: Basic Metabolic Panel [facility] 02/13 13:05 Order name: Basic Metabolic Panel [facility] 02/13 13:05 Order name: Basic Metabolic Panel [facility] 02/13 13:05 Order name: Basic Metabolic Panel [facility] 02/13 13:05 Order name: CBC with Automated Diff [facility] 02/13 13:05 Order name: CBC with Automated Diff [facility] 02/13 13:05 Order name: CBC with Automated Diff [facility] 02/13 13:05 Order name: CBC with Automated Diff [facility] 02/13 13:05 Order name: CBC with Automated Diff [facility] 02/13 13:05 Order name: CBC with Automated Diff [facility] 02/13 13:05 Order name: Lipid Profile [facility] 02/13 13:05 Order name: Lipid Profile [facility] 02/13 13:05 Order name: Troponin High Sensitivity [facility] 02/13 13:05 Order name: Troponin High Sensitivity [facility] 02/13 13:05 Order name: Troponin High Sensitivity [facility] 02/13 13:05 Order name: Troponin High Sensitivity [facility] 02/13 10:30 Order name: XRAY Chest (1 view); Complete Time: 11:55 [facility] 02/13 10:30 Order name: EKG; Complete Time: 10:32 [facility] 02/13 13:05 Order name: CONS Physician Consult [facility] 02/13 10:30 Order name: Cardiac monitoring; Complete Time: 12:07 [facility] 02/13 10:30 Order name: EKG - Nurse/Tech; Complete Time: 10:35 [facility] 02/13 10:30 Order name: IV Saline Lock; Complete Time: 10:51 [facility] 02/13 10:30 Order name: Labs collected and sent; Complete Time: 10:51 [facility] 02/13 10:30 Order name: O2 Per Protocol; Complete Time: 12:07 [facility] 02/13 10:30 Order name: O2 Sat Monitoring; Complete Time: 12:07 [facility] EC:02 Rate is 77 beats/min. Rhythm is regular. QRS [place] is Normal. IN interval is normal. QRS [place] interval is normal. QT interval is normal. No Q waves. T waves are Normal. No ST changes noted. Clinical impression: Abnormal EKG without significant change and No evidence of ischemia. Interpreted by me. Reviewed by me. Administered Medications: 10:44 CANCELLED (Duplicate Order): aspirinchewable tablet 324 mg PO once; 81 mg tablets x 4 [place]go 11:37 Drug: NS 0.9% IV 500 ml IV at bolus once Route: IV; Rate: bolus; Site: right cm10 antecubital; 12:53 Follow up: Response: No adverse reaction; IV Status: Completed infusion; IV Intake: cm10 500ml 12:06 Drug: Ondansetron IVP 4 mg IVP once; over 2 minutes Route: IVP; Site: right antecubital;cm10 12:53 Follow up: Response: No adverse reaction cm10 12:06 Drug: Famotidine IVP 20 mg IVP once; dilute with 10 mL 0.9% NaCl; give over 2 minutes cm10 Route: IVP; Site: right antecubital; 12:52 Follow up: Response: No adverse reaction cm10 12:07 Drug: Metoprolol PO 50 mg PO once Route: PO; cm10 12:53 Follow up: Response: No adverse reaction cm10 12:07 Drug: Enoxaparin Sub-Q 1 mg/kg Sub-Q once Route: Sub-Q; Site: abdomen; cm10 12:53 Follow up: Response: No adverse reaction cm10 12:07 Drug: Clopidogrel PO 75 mg PO once Route: PO; cm10 12:53 Follow up: Response: No adverse reaction cm10 12:07 Drug: morphine IVP or IV 4 mg IVP once over 4 mins Route: IVP; Infused Over: 4 mins; cm10 Site: right antecubital; 12:53 Follow up: Response: No adverse reaction cm10 12:21 Drug: Magnesium Sulfate IVPB 1 grams IVPB once over 1 hrs Route: IVPB; Infused Over: 1 cm10 hrs; Site: right antecubital; 13:22 Follow up: Response: No adverse reaction; IV Status: Completed infusion; IV Intake: cm10 100ml 12:21 Drug: Potassium PO Effervescent Tablet 25 mEq PO once; dissolve in 4 ounces of water or cm10 juice Route: PO; 12:52 Follow up: Response: No adverse reaction cm10 Disposition Summary: 02/14/23 00:07 Hospitalization Ordered Notes: Hospitalization Status: Inpatient Admission(02/14/23 00:07) lg3 Provider: Ermias Kitchen(02/14/23 00:07) lg3 Condition: Stable(02/14/23 00:07) lg3 Symptoms: have improved(02/14/23 00:07) lg3 Bed/Room Type: Standard(02/14/23 00:07) lg3 Location: Telemetry/MedSurg (Inpatient)(02/14/23 00:42) rv1 Room Assignment: 406(02/14/23 00:42) rv1 Diagnosis - Chest pain, unspecified(02/14/23 00:07) lg3 - Tobacco abuse counseling(02/14/23 00:07) lg3 - Tobacco use(02/14/23 00:07) lg3 - Essential (primary) hypertension(02/14/23 00:07) lg3 - Hypokalemia(02/14/23 00:07) lg3 - Hypomagnesemia(02/14/23 00:07) lg3 - Non ST elevation [place](02/14/23 00:07) lg3 Discharge Instructions: - Discharge Summary Sheet ha1 Forms: - Medication Reconciliation Form lg3 - Leadership Thank You Letter lg3 - SBAR form ha1 Signatures: Dispatcher [employer] EDDhara Newman, RN Michael Ortega MD MD cha Calderon, Audri RN RN aa5 Kailey Ching RN RN jl7 Lauren Madera RN YANETH lg3 Ruth East RN RN ll1 Autumn Rodriguez rv1 Kelsey Khan RN RN cm10 Corrections: (The following items were deleted from the chart) 10:44 10:30 Aspirin PO Chewable Tablet 324 mg PO once; 81 mg tablets x 4 ordered. juan diego juan diego 14:57 12:12 Telemetry/MedSurg (Inpatient) juan diego jl7 14:57 12:12 juan diego jl7 22:53 14:57 [facility] ER HOLD jl7 kl 22:53 14:57 ERHOLD- jl7 kl 23:58 12:12 Inpatient Admission juan diego rv1 23:58 12:12 Ermias Kitchen juan diego rv1 23:58 12:12 Stable juan diego rv1 23:58 12:12 new juan [place]go rv1 23:58 12:12 have improved juan diego rv1 23:58 12:12 Standard juan [place]go rv1 23:58 12:12 Chest pain, unspecified juan diego rv1 23:58 12:12 Tobacco abuse counseling juan diego rv1 23:58 12:12 Tobacco use juan diego rv1 23:58 12:12 Essential (primary) hypertension juan diego rv1 23:58 12:12 Hypokalemia juan diego rv1 23:58 12:12 Hypomagnesemia juan diego rv1 23:58 12:[address] elevation [place] juan diego rv1 23:58 22:53 Telemetry/MedSurg (observation) kl rv1 23:58 22:53 209 kl rv1 02/14 00:07 00:07 lg3 rv1 00:07 00:07 ERHOLD- rv1 lg3 00:42 00:07 [facility] ER HOLD lg3 rv1 00:42 00:07 ERHOLD- lg3 rv1
--- NOTE | 2023-02-13 12:12 | ER ---
Nurse's Notes [facility] Name: Geetha Khan Age: 47 yrs Sex: Female : 1975 Arrival Date: 02/13/2023 Time: 10:25 Bed 20 Private MD: Diagnosis: Chest pain, unspecified;Tobacco abuse counseling;Tobacco use;Essential (primary) hypertension;Hypokalemia;Hypomagnesemia;Non ST elevation SD Presentation: 02/13 10:26 Chief complaint: Patient states: chest pain x 12 hours. aa5 10:26 Method Of Arrival: EMS: [facility] aa5 10:26 Coronavirus screen: At this time, the client does not indicate any symptoms associated aa5 with coronavirus-19. Ebola Screen: Patient denies travel to an Ebola-affected area in the 21 days before illness onset. Initial Sepsis Screen: Does the patient meet any 2 criteria? No. Patient's initial sepsis screen is negative. Does the patient have a suspected source of infection? No. Patient's initial sepsis screen is negative. Risk Assessment: Do you want to hurt yourself or someone else? Patient reports no desire to harm self or others. Onset of symptoms was February 12, 2023. 10:26 Acuity: CORRINA 3 aa5 Triage Assessment: 10:32 General: Appears in no apparent distress. Behavior is calm, cooperative, appropriate ll1 for age. Pain: Complains of pain in chest Quality of pain is described as aching. Cardiovascular: Reports chest pain. 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 - Social history:: Smoking status: Patient/guardian denies using tobacco. - Family history:: not pertinent. Screenin:40 [facility] ED Fall Risk Assessment (Adult) History of falling in the last 3 months, cm10 including since admission Yes- single mechanical fall (1 pt) Confusion or Disorientation No (0 pts) Intoxicated or Sedated No (0 pts) Impaired Gait Yes (1 pt) Mobility Assist Device Used Yes (1 pt) Altered Elimination Yes (1 pt) Score/Fall Risk Level 3 or more points = High Risk Oriented to surroundings, Maintained a safe environment, Educated pt \T\ family on fall prevention, incl call for assistance when getting out of bed, Hourly rounding (assess needs \T\ fall precautionary measures) done, Used ambulatory aids as needed (educated on \T\ assisted with). Abuse screen: Denies threats or abuse. Denies injuries from another. Nutritional screening: No deficits noted. Tuberculosis screening: No symptoms or risk factors identified. Assessment: 10:52 Reassessment: Patient and/or family updated on plan of care and expected duration. Pain ll1 level reassessed. 11:38 General: Appears in no apparent distress. comfortable, Behavior is calm, cooperative. cm10 Pain: Complains of pain in chest Pain does not radiate. Pain currently is 10 out of 10 on a pain scale. Pain began Chronic pain Is continuous. Neuro: No deficits noted. Level of Consciousness is awake, alert, obeys commands, Oriented to person, place, time, situation. Cardiovascular: No deficits noted. Patient's skin is warm and dry. Chest pain is described as Pain is 10 out of 10 on a pain scale. is located in chest wall. Respiratory: No deficits noted. Airway is patent Respiratory effort is even, unlabored, Respiratory pattern is regular, symmetrical. Derm: No deficits noted. Skin is intact, Skin is pink, warm \T\ dry. 13:03 Reassessment: Patient appears in no apparent distress at this time. No changes from cm10 previously documented assessment. Patient and/or family updated on plan of care and expected duration. Pain level reassessed. Patient is alert, oriented x 3, equal unlabored respirations, skin warm/dry/pink. 02/14 00:50 Reassessment: attempted to give report. ha1 01:15 Reassessment: report given to YANETH Espinoza. 1 Vital Signs: 02/13 10:26 BP 153 / 93; Pulse 80; Resp 16 S; Temp 97.3(TE); Pulse Ox 96% on R/A; Weight 65.77 kg aa5 (R); Height 5 ft. 2 in. (R); 11:30 BP 136 / 73; Pulse 93; Resp 18; Pulse Ox 99% on R/A; cm10 13:03 BP 126 / 81; Pulse 60; Resp 18; Pulse Ox 100% on R/A; cm10 10:26 Body Mass Index 26.52 (65.77 kg, 157.48 cm) aa5 ED Course: 10:26 Patient arrived in ED. aa5 10:26 Arm band placed on. aa5 10:27 Michael Grimm MD is Attending Physician. juan diego 10:32 EKG completed in triage. Results shown to MD. aa5 10:35 Triage completed. aa5 11:03 Basic Metabolic Panel Sent. bc6 11:03 CBC with Diff Sent. bc6 11:03 D-Dimer Sent. bc6 11:03 LFT's Sent. bc6 11:03 Magnesium Sent. bc6 11:03 NT PRO-BNP Sent. bc6 11:03 PT-INR Sent. bc6 11:03 Troponin HS Sent. bc6 11:03 Inserted saline lock: 20 gauge in right antecubital area, using aseptic technique. bc6 Blood collected. 11:26 XRAY Chest (1 view) In Process Unspecified. EDMS 11:26 Patient placed in an exam room, on a stretcher. aa5 11:40 Patient has correct armband on for positive identification. Bed in low position. Call cm10 light in reach. Side rails up X2. Provided Education on: ER process and procedures. . Client placed on continuous cardiac and pulse oximetry monitoring. NIBP monitoring applied. 11:40 No provider procedures requiring assistance completed. Patient maintains SpO2 cm10 saturation greater than 95% on room air. 12:05 Ermias Kitchen is Hospitalizing Provider. juan diego 12:08 Kelsey Khan, YANETH is Primary Nurse. cm10 16:13 Patient admitted, IV remains in place. cm10 02/14 00:06 Ermias Kitchen is Hospitalizing Provider. lg3 01:29 No provider procedures requiring assistance completed. ha1 Administered Medications: 02/13 10:44 CANCELLED (Duplicate Order): aspirinchewable tablet 324 mg PO once; 81 mg tablets x 4 juan diego 11:37 Drug: NS 0.9% IV 500 ml IV at bolus once Route: IV; Rate: bolus; Site: right cm10 antecubital; 12:53 Follow up: Response: No adverse reaction; IV Status: Completed infusion; IV Intake: cm10 500ml 12:06 Drug: Ondansetron IVP 4 mg IVP once; over 2 minutes Route: IVP; Site: right antecubital;cm10 12:53 Follow up: Response: No adverse reaction cm10 12:06 Drug: Famotidine IVP 20 mg IVP once; dilute with 10 mL 0.9% NaCl; give over 2 minutes cm10 Route: IVP; Site: right antecubital; 12:52 Follow up: Response: No adverse reaction cm10 12:07 Drug: Metoprolol PO 50 mg PO once Route: PO; cm10 12:53 Follow up: Response: No adverse reaction cm10 12:07 Drug: Enoxaparin Sub-Q 1 mg/kg Sub-Q once Route: Sub-Q; Site: abdomen; cm10 12:53 Follow up: Response: No adverse reaction cm10 12:07 Drug: Clopidogrel PO 75 mg PO once Route: PO; cm10 12:53 Follow up: Response: No adverse reaction cm10 12:07 Drug: morphine IVP or IV 4 mg IVP once over 4 mins Route: IVP; Infused Over: 4 mins; cm10 Site: right antecubital; 12:53 Follow up: Response: No adverse reaction cm10 12:21 Drug: Magnesium Sulfate IVPB 1 grams IVPB once over 1 hrs Route: IVPB; Infused Over: 1 cm10 hrs; Site: right antecubital; 13:22 Follow up: Response: No adverse reaction; IV Status: Completed infusion; IV Intake: cm10 100ml 12:21 Drug: Potassium PO Effervescent Tablet 25 mEq PO once; dissolve in 4 ounces of water or cm10 juice Route: PO; 12:52 Follow up: Response: No adverse reaction cm10 Medication: 11:40 VIS not applicable for this client. cm10 Intake: 12:53 IV: 500ml; Total: 500ml. cm10 13:22 IV: 100ml; Total: 600ml. cm10 Outcome: 12:12 Decision to Hospitalize by Provider. juan diego 16:13 Admitted to ER Hold. Please see [facility] for further documentation. cm10 16:13 Condition: good 16:13 Instructed on the need for admit, PT admitted to ER hold, see charting in [facility]. 02/14 00:07 Decision to Hospitalize by Provider. lg3 01:29 Admitted to Tele accompanied by tech, via stretcher, with chart, Report called to jesus Espinoza RN 01:30 Patient left the ED. [facility] Signatures: Dispatcher [employer] Michael Meyer MD MD cha Calderon, Audri, RN RN aa5 Lauren Madera, RN RN lg3 Ruth East, RN RN ll1 Aydee Ulrich RN RN [email or web address] Grisel Delvalle6 Kelsey Khan RN RN cm10
[2023-02-13] MEDS ORDERED: MAGNESIUM SULFATE 1 gm IVPB 1 GM/100 ML BAG IV ONE (12:26)
[2023-02-13] MEDS ORDERED: POTASSIUM 25 MEQ EFFERV TAB ONE (12:26)
[2023-02-13] MEDS ORDERED: NITROGLYCERIN 0.4 MG/TAB SL PRN (12:58)
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
[2023-02-13 14:55] VITALS: BMI 26.5
[2023-02-13] MEDS: ATORVASTATIN 40 MG TAB PO SCH (21:55)
[2023-02-13] MEDS: ACETAMINOPHEN 500 MG TAB PO PRN (21:55)
[2023-02-13] MEDS ORDERED: ATORVASTATIN 40 MG TAB ONE (22:03)
[2023-02-13] MEDS ORDERED: ACETAMINOPHEN 500 MG TAB ONE (22:13)
[2023-02-13 22:18] LABS: Phosphorus 4.2 mg/dL (2.5-4.9); Troponin High Sensitivity 54.3 pg/mL (<58.9)
[2023-02-14] MEDS: ACETAMINOPHEN 500 MG TAB PO PRN ×3 (02:29→22:29)
[2023-02-14 06:05] LABS: Absolute Lymphocytes (CBC) 1.6 K/uL (0.7-4.9); Hematocrit 30.5 % (36.0-45.0); Lymphocytes % 33.6 % (15.3-44.8); MCV 92.1 fL (80-100); Platelets 170 thou/uL (152-406)
[2023-02-14 06:23] LABS: Potassium 4.3 mEq/L (3.5-5.1); Troponin High Sensitivity 52.4 pg/mL (<58.9)
--- NOTE | 2023-02-14 09:36 | P.DS ---
Admission Date: 02/13/23 Discharge Date: 02/14/23 Disposition: ROUTINE DISCHARGE Discharge Condition: GOOD Reason for Admission: Chest pain r/o [place] Hospital Course: Diagnosis Chest pain r/o MN patient with history of MN Stable angina Elevated troponin Ascending aortic aneurysm 4.3 cm Geetha is a pleasant 61-year-old female with a past medical history significant for asthma, CVA (with residual left-sided weakness), thyroid problem, COPD, hypertension, myocardial infarction, seizures who was admitted to the [facility] on 02/13/2030 for chest pain. Geetha presents to the ED with complaints of left-sided chest pain radiating down her left arm, she stated this felt similar to her previous chest pain which required a heart cath. During this admission troponins was elevated in the ED at 65 and serial decreased. Consulted Dr. Olson who recommended discharge at this time. Previous work-up includes stress test in November, echocardiogram 11/22, heart cath 12/20. She is on room air, tolerating p.o. diet, hemodynamically stable, with no acute events overnight. On 02/15/2020, Geetha was seen on morning rounds and deemed medically stable for discharge. Geetha was discharged with instructions to schedule follow-up appointments with Dr. Olson. Mariel was provided prescriptions for [place]. The patient and family members were given the opportunity to ask questions and reported no further questions. Furthermore, all questions were answered to the best of my ability. A copy of this discharge summary will be sent to the above providers to facilitate continuity of care. Today, I personally spent 55 minutes with Geetha, of which greater than 50% of the time was spent in patient education, counseling, and coordination of care as described above. Vital Signs/Physical Exam: Temp Pulse Resp BP Pulse Ox 97.2 F 57 14 158/79 H 100 02/14/23 08:00 02/14/23 08:00 02/14/23 08:00 02/14/23 08:00 02/14/23 08:00 Laboratory Data at Discharge: WBC 4.80 thou/uL (4.3-10.9) 02/14/23 05:35 Hgb 10.5 g/dL (12.0-15.0) L 02/14/23 05:35 Hct 30.5 % (36.0-45.0) L 02/14/23 05:35 Plt Count 170 thou/uL (152-406) 02/14/23 05:35 PT 10.9 SECONDS (9.5-12.5) 02/13/23 10:50 INR 0.99 02/13/23 10:50 Sodium 140 mEq/L (136-145) 02/14/23 05:35 Potassium 4.3 mEq/L (3.5-5.1) D 02/14/23 05:35 BUN 21 mg/dL (7-18) H 02/14/23 05:35 Creatinine 1.75 mg/dL (0.55-1.02) H 02/14/23 05:35 Glucose 74 mg/dL (74-106) 02/14/23 05:35 Phosphorus 4.2 mg/dL (2.5-4.9) 02/13/23 21:30 Magnesium 2.0 mg/dL (1.6-2.4) 02/13/23 21:30 Total Bilirubin 0.7 mg/dL (0.2-1.0) 02/13/23 10:50 AST 21 U/L (15-37) 02/13/23 10:50 ALT 20 U/L (13-56) 02/13/23 10:50 Alkaline Phosphatase 114 U/L (45-117) 02/13/23 10:50 Triglycerides 103 mg/dL (<150) 02/13/23 21:30 Cholesterol 153 mg/dL (<200) 02/13/23 21:30 HDL Cholesterol 75 mg/dL (40-60) H 02/13/23 21:30 Cholesterol/HDL Ratio 2.04 02/13/23 21:30 Lipase 37 U/L (13-75) 02/13/23 10:50 Home Medications: Atorvastatin Calcium [Lipitor] 40 mg PO BEDTIME #30 tab 01/03/23 Folic Acid 1 mg PO DAILY #30 tab 01/03/23 Metoprolol Succinate [Toprol Xl*] 25 mg PO BEDTIME #30 tab 01/03/23 lisinopriL [Prinivil*] 20 mg PO DAILY #30 tab 01/03/23 Hydrocodone 5/APAP 325 [[place] 5/325*] 1 tab PO Q8H PRN 12 Days #30 tab 02/14/23 New Medications: Hydrocodone 5/APAP 325 [[place] 5/325*] 1 tab PO Q8H PRN 12 Days #30 tab PRN Reason: Pain Physician Discharge Instructions: PROBLEM: Non-specific Chest Pain GOAL: Clear understanding of disease process INSTRUCTIONS: 1. Please call and schedule a follow-up appointment with your PCP in 3-5 days - Please follow-up with your PCP for medication refills/adjustments 2. Please call and schedule a follow-up appointment with Dr. Olson in 3-5 days for stable angina management 3. Continue Heart healthy diet 4. Fall precautions 5. Return to ED if symptoms return and are concerning New medication [place] one tablet every 8 hours if needed for pain Diet: AHA Activity: Fall precautions DME DME: Date Ordered: Name of Company: [employer] Services Needed: Name of Company: Date or Referral: IMMUNIZATION Influenza Vaccine Indicated: No Influenza Vaccine Given: Date Given: Pneumonia Vaccine Indicated: No Pneumonia Vaccine Given: Date Given: Physical Exam General: Alert, In no apparent distress, Oriented x3 HEENT: Atraumatic, Normocephalic, PERRLA Neck: Supple, 2+ carotid pulse no bruit, JVD not distended Respiratory: Clear to auscultation bilaterally, Normal air movement Cardiovascular: No edema, Normal pulses, Regular rate/rhythm, Normal S1 S2 Capillary refill: <2 Seconds Gastrointestinal: Normal bowel sounds, Soft and benign Musculoskeletal: No clubbing, No swelling, No contractures Integumentary: No rashes, No breakdown, No significant lesion Neurological: Normal speech, Normal strength at 5/5 x4 extr, Normal tone Diet: AHA Activity: Fall precautions Followup: NONE,NONE [Primary Care Provider] - Josse Olson MD [ACTIVE - CAN ADMIT] - Time spent managing pt's care (in minutes): 55
--- NOTE | 2023-02-14 15:16 | EKG ---
Test Date: 2023-02-13 Test Time: 10:32:23 [employer] Coach: KATRINA MEASUREMENT RESULTS: Intervals: Rate: 77 [place]: 180 QRSD: 90 QT: 390 QTc: 441 [place]: P: 57 [place]: 180 QRS: 14 T: 172 INTERPRETIVE STATEMENTS: Normal sinus rhythm Possible Left atrial enlargement Left ventricular hypertrophy with repolarization abnormality Abnormal ECG Compared to ECG 02/11/2023 23:45:13 No significant changes Electronically Signed On 02-14-23 15:12:17 DUPLICATOR PUNCH SET UP OPERATOR by Josse Olsno
[2023-02-14 19:38] VITALS: BP 149/67; TEMP 97.6; O2SAT 98
[2023-02-14] MEDS: ATORVASTATIN 40 MG TAB PO SCH (19:59)
== END 2023-02-15 | disposition home or self-care (01) ==
LOC: ER 10:25 → ERHOLD 13:58 → 4TH 02-14 00:50
PROVIDERS: ADMIT Internal Medicine; ATTEND Internal Medicine
DX: I20.9 Angina pectoris, unspecified (principal); R79.89 Other specified abnormal findings of blood chemistry; I71.21 Aneurysm of the ascending aorta, without rupture; F17.210 Nicotine dependence, cigarettes, uncomplicated; J45.909 Unspecified asthma, uncomplicated; I69.954 Hemiplegia and hemiparesis following unspecified cerebrovascular disease affecting left non-dominant side; E03.9 Hypothyroidism, unspecified; E87.6 Hypokalemia; E83.42 Hypomagnesemia; J44.9 Chronic obstructive pulmonary disease, unspecified; I10 Essential (primary) hypertension; I25.2 Old myocardial infarction; R56.9 Unspecified convulsions; R06.02 Shortness of breath; R42 Dizziness and giddiness; Z91.013 Allergy to seafood; Z91.018 Allergy to other foods; Z88.6 Allergy status to analgesic agent; Z71.6 Tobacco abuse counseling
CPT/HCPCS: 36415; 71045; 80048; 80061; 80076; 83690; 83735; 83880; 84100; 84484; 85025; 85379; 85610; 93005; 96361; 96365; 96372; 96375; 97110; 97161; 97530; 99285; G0378; J1650; J2405; J3475; J7040

== ENCOUNTER 2023-02-16 10:31 | Emergency (ER) | payer SELFPAY ==
[2023-02-16] MEDS ORDERED: CYCLOBENZAPRINE 10 MG TAB ONE (10:59)
[2023-02-16] MEDS ORDERED: KETOROLAC 30 MG/ML INJ ONE (10:59)
--- OUTSIDE RECORDS SUMMARY | 2023-02-16 10:59 | XMS REPORT | Continuity of Care Document ---
:1975 Author Organization [facility] t Address [address] [facility] [address] [place] [address] Care Team Providers Name Role Phone Pcp, Patient Does Not Have A Primary Care Physician [phone] 00-0000 MIR ARITA Attending Clinician Unavailable JUJU TAI Attending Clinician Unavailable KATHY ZEPEDA Attending Clinician Unavailable MURRAY ELISE Attending Clinician Unavailable Caty Wang Attending Clinician Unavailable Doctor Unassigned, [place] Attending Clinician Unavailable Desi Sotelo LVN Attending Clinician Zohaib Parsons MD Attending Clinician [phone] Ryne Yoder MD Attending Clinician Meghana Felix MD Attending Clinician RYNE YODER Attending Clinician Unavailable Santiago Whiteside MD Attending Clinician [phone] Kathy Zepeda MD Attending Clinician Unavailable Bessy Shah MD Attending Clinician Juju Tai DO Attending Clinician Sonido ECHEVERRIA, Amanda Tejada Attending Clinician [phone] Juan J ECHEVERRIA, Mir Meeks Attending Clinician Merchant ECHEVERRIA, Goyo Attending Clinician GOYO HANKINS Attending Clinician Unavailable Gosia DYER, Murray Attending Clinician Vijay Jenkins Attending Clinician KRISTIN SHAH Attending Clinician Unavailable Fredis ECHEVERRIA, [facility] In Attending Clinician Fredrick ECHEVERRIA, Aida Barreto Attending Clinician [phone] Yariel ECHEVERRIA, Clifton Negro Attending Clinician [phone] Debra ECHEVERRIA, Kristin Cano Attending Clinician [phone] 1 CLIFTON DE LUNA Attending Clinician Unavailable Les Al MD Attending Clinician Nena Waller MD Attending Clinician Leonid Harris MD Attending Clinician DAYRON FOSTER Attending Clinician Unavailable Cristian ECHEVERRIA, Dayron Hogan Attending Clinician [phone] 1 ZAIN SALAS Attending Clinician Unavailable AMANDA [...] Iqra kes y failure y failure 00:00: [facility] wale with with 00 Center hypoxia [...] nce 5-16 [facility] 00:00: Medical 00 [place] Pelvic Pelvic Disease Active [facility] abscess [...] Medical Branch ASPIRIN Allergy Active High Anaphylaxis 3-0 SLE H 5-15 00:00: 00 MUSHROOM Allergy Active High Anaphylaxis 2023-0 SL EH 5-15 00:00: 00 SHELLFIS Allergy Active High Anaphylaxis 2023-0 SL EH H 5-15 CONTAINI 00:00: NG 00 PRODUCTS Aspirin Drug Active Anaphylaxis 3-[address] [facility] 00:[facility]: Medical 00 Center Mushroom Drug Active Anaphylaxis 2023-[address] [facility] Allergy 5-15 [facility] 00:00: Medical 00 Center Shellfis Drug Active Anaphylaxis 2023-[address] [facility] Allergy 5-15 [facility] Containi 00:00: Medical ng 00 Center Products CRANBERR Allergy Active High Anaphylaxis 2019-1 SL EH Y 2-01 00:00: 00 FISH Allergy Active High Swelling 2019- SLSL CONTAINI 2-01 NG 00:00: PRODUCTS 00 Cranberr Drug Active Anaphylaxis, 2019-[address] [facility] Allergy Hives, 2-01 [facility] Itching 00:00: Medical 00 Center Fish Drug Active Swelling 2019- [facility] Containi Allergy 2-01 [facility] ng 00:00: Medical Products 00 Center Social History Social Habit Start Date Stop Date Quantity Comments Source History SDNV [facility] Alcohol Std Drinks Medica l Center History SDNV [facility] Alcohol Comment Medical C enter History [facility] Transport Non-Med Medical Center Sexual orientation [facility] Gender identity Universit y of [facility] Cigarettes smoked 2022-11-24 2022-11-24 Univers ity of current (pack per 00:00:00 00:00:00 [facility] ) - Reported Branch Cigarette 2022-11-24 2022-11-24 University of pack-years 00:00:00 00:00:00 [facility] Tobacco use and 2022-11-24 2022-11-24 Smokeless Universit y of exposure 00:00:00 00:00:00 tobacco non-user [facility] intake 2022-11-24 2022-11-24 Ex-drinker [facility] 00:00:00 00:00:00 (finding) [facility] History of Social 2022-11-07 2022-11-[address] [facility] function 00:00:00 00:00:00 Medical Center History of tobacco 2022-11-03 Passive smoker Un iversity of use 00:00:00 [facility] History OROH 2022-08-06 2022-08-[address] [facility] Transport Med 00:00:00 00:00:[address] [facility] 2022-08-06 2022-08-[address] [facility] Housing Unable to 00:00:00 00:00:00 Medical Center Pay History [facility] 2022-08-06 2022-08-[address] [facility] Housing Places 00:00:00 00:00:00 Medical Ce nter Lived History [facility] 2022-08-06 2022-08-[address] [facility] Housing Homeless 00:00:00 00:00:00 Medical Center Last Year History [facility] 2019-02-15 2019-02-[address] [facility] Alcohol Binge 00:00:00 00:00:[address] History [facility] 2019-02-15 2019-02-[address] [facility] Alcohol Frequency 00:00:00 00:00:00 Medical Center Sex Ass[birth year] At [birth year] Universit [facility] of 00:00:00 00:00:00 [facility] Smoking Status Start Date Stop Date Source Ex-smoker 2022-11-24 00:00:00 2022-11-24 [facility] [place] 00:00:00 Medical Branch Occasional tobacco 2022-07-30 00:00:00 [facility] smoker Center Medications Ordered Filled Start Stop Current Ordering Indication Dosage Frequency Signature Comments Components Source Medication Medication Date Date Medication? Clinician (SIG) Name Name QUEtiapine 2022-0 Yes 25mg Take 1 Unive rs 25 mg 9-14 tablet by ity of tablet 15:09: mouth in [place] [address] the Medical morning Branch and 1 tablet in the evening. furosemide 3-0 Yes 20mg Take 1 Unive rs (LASIX) 20 9-14 tablet by ity of mg tablet 15:09: mouth in [place] [address] the Medical morning. Branch QUEtiapine 2022-0 Yes 25mg Take 1 Unive rs 25 mg 9-14 tablet by ity of tablet 15:09: mouth in [place] [address] the Medical morning Branch and 1 tablet in the evening. furosemide 3-0 Yes 20mg Take 1 Unive rs (LASIX) 20 9-14 tablet by ity of mg tablet 15:09: mouth in [place] [address] the Medical morning. Branch KCL 2022-0 Yes 20meq 20 mEq, Univers (KLOR-CON 9-14 Oral, ity of M20) tablet 14:00: DAILY, [facility] 20 mEq 00 First dose Medical on [facility] Branch 11/29/22 at 0900, Until Discontinu ed, Routine QUEtiapine 2023-0 Yes 25mg Take 1 Unive rs 25 mg 9-13 tablet by ity of tablet 21:49: mouth in [place] [address] the Medical morning Branch and 1 tablet in the evening. furosemide 3-0 Yes 20mg Take 1 Unive rs (LASIX) 20 9-13 tablet by ity of mg tablet 21:49: mouth in [place] [address] the Medical morning. Branch QUEtiapine 2022- Yes 25mg Take 1 Unive rs 25 mg 11-28 tablet by ity of tablet 21:49: mouth in [place] [address] the Medical morning Branch and 1 tablet in the evening. furosemide 2022- Yes 20mg Take 1 Unive rs (LASIX) 20 11-28 tablet by ity of mg tablet 21:49: mouth in [place] [address] the Medical morning. Branch albuterol 2022- No 2{puff} 2 Puff, U nivers (VENTOLIN) 11-28 Inhalation it y of inhaler 2 20:59: 21:00 [place] P[place] :[place] dose, On Medical Wed Branch 11/28/22 at 1600, Routine magnesium 2022-2022- No 4g 4 g, IV Univ ers sulfate in 11-28 Piggyback, it y of water 4 15:45: 18:49 at 25 [place] gram/50 mL 00 :00 mL/hr Medical (8 %) IV Administer Branc h Piggyback 4 over 120 g Minutes, ONCE, 1 dose, On Sat11/28/22 at 1045, Routine atorvastati 2022-2022- No 40mg Take 1 Uni vers n 40 mg 11-28 tablet by ity of tablet 10:17: 00:00 mouth at [place] 14 :00 bedtime. Medical Branch amLODIPine 2022- [...] tablet in the evening. amLODIPine 2022-0 Yes [id number] 2.5mg Take 1 Univers 2.5 mg 11-28 tablet by ity of tablet 00:00: mouth in [place] 00 the Medical morning. Branch metoprolol 3-0 Yes [id number] 12.5mg Take 0.5 Univers tartrate 25 9-13 tablets by it y of mg tablet 00:00: [place] the Medical morning Branch and 0.5 tablets in the evening. atorvastati 3-0 Yes [id number] 40mg Take 1 Univers n 40 mg 9-13 tablet by ity of tablet 00:00: mouth at [place] 00 bedtime. Medical Branch amLODIPine 3-0 Yes [id number] 2.5mg Take 1 Univers 2.5 mg 9-13 tablet by ity of tablet 00:00: mouth in [place] 00 the Medical morning. Branch metoprolol 3-0 Yes [id number] 12.5mg Take 0.5 Univers tartrate 25 9-13 tablets by it y of mg tablet 00:00: [place] the Medical morning Branch and 0.5 tablets in the evening. atorvastati 2022-0 Yes [id number] 40mg Take 1 Univers n 40 mg 9-13 tablet by ity of tablet 00:00: mouth at [place] 00 bedtime. Medical Branch amLODIPine 2022-0 Yes [id number] 2.5mg Take 1 Univers 2.5 mg 9-13 tablet by ity of tablet 00:00: mouth in [place] 00 the Medical morning. Branch metoprolol 3-0 Yes [id number] 12.5mg Take 0.5 Univers tartrate 25 9-13 tablets by it y of mg tablet 00:00: [place] the Medical morning Branch and 0.5 tablets in the evening. atorvastati 3-0 Yes [id number] 40mg Take 1 Univers n 40 mg 9-13 tablet by ity of tablet 00:00: mouth at [place] 00 bedtime. Medical Branch amLODIPine 3-0 Yes [id number] 2.5mg Take 1 Univers 2.5 mg 9-13 tablet by ity of tablet 00:00: mouth in [place] 00 the Medical morning. Branch metoprolol 3-0 Yes [id number] 12.5mg Take 0.5 Univers tartrate 25 9-13 tablets by it y of mg tablet 00:00: [place] the Medical morning Branch and 0.5 tablets in the evening. atorvastati 2023-0 Yes [id number] 40mg Take 1 Univers n 40 mg [...] Routine, Pain (scale 1-3) nitroglycer 2022- No [id number] .8mg 0.8 mg, Univers in 11-27 Sublingual ity of (NITROSTAT) 20:15: 19:15 , ONCE, 1 [place] sublingual 00 :00 dose, On Medic al tablet 0.8 e Branch mg 11/27/22 at 1515, KASSIDY iopamidol 2022- No [id number] 80mL 80 mL, U nivers (ISOVUE 11-27 [...] Until Discontinu ed, Routine perflutren 2022- No [id number] 3mL 3 mL, IV Univers protein-A 11-25 Push, ity of microsphr 15:00: 15:00 [place] (OPTISON[place] 00 :00 dose, On Medica l injection 3 [facility] mL 11/25/22 at 1000, Routine pantoprazol Yes 40mg 40 mg, Univ ers e 11-25 Oral, ity of (PROTONIX) 14:00: DAILY, [place] EC tablet 00 First dose Medi wale 40 mg on [facility] 11/25/22 at 0900, Until Discontinu ed, Routine clopidogreL 2022- No 75mg 75 mg, Uni vers (PLAVIX) 75 11-25 Oral, ity of mg tablet 14:00: 14:47 DAILY, [place] 75 mg 00 :08 First dose Medical on [facility] 11/25/22 at 0900, Until Discontinu ed, Routine magnesium 2022- No 4g 4 g, IV Univ ers sulfate in 11-25 Piggyback, it y of water 4 04:15: 07:19 at 25 [place] gram/50 mL 00 :00 mL/hr Medical (8 [...] Rang e, Dosing and Testing: &nbs p;FOR DIBOLL, [facility], AND [facility] ONLY &nbs p; - aPTT < 35: [...] 00 :00 by mouth Center daily. amLODIPine 2022-0 2023- No 10mg QD Take [address] [facility] (NORVASC) 8-14 11- tablet (10 Reyna es 10 MG 00:00: 23:59 mg total) Medica l tablet 00 :00 by mouth Center daily. amLODIPine 2022-0 2023- No 10mg QD Take [address] [facility] (NORVASC) 8-14 11- tablet (10 Reyna es 10 MG 00:00: 23:59 mg total) Medica l tablet 00 :00 by mouth Center daily. amLODIPine 2022-0 2023- No 10mg QD Take [address] [facility] (NORVASC) 8- tablet (10 Reyna es 10 MG 00:00: 23:59 mg total) Medica l tablet 00 :00 by mouth Center daily. thiamine 2022-0 2023- No 100mg QD Take 1 [facility] 100 MG 11-14 tablet [facility] tablet 00:00: 23:59 (100 mg Medical 00 :00 total) by Center mouth daily for 30 days. thiamine 2022-0 2023- No 100mg QD Take 1 [facility] 100 MG 11-14 tablet [facility] tablet 00:00: 23:59 (100 mg Medical 00 :00 total) by Center mouth daily for 30 days. thiamine 2022-0 3- No 100mg QD Take 1 [facility] 100 MG 11-14- tablet [facility] tablet 00:00: 23:59 (100 mg Medical 00 :00 total) by Center mouth daily for 30 days. thiamine 2022-0 3- No 100mg QD Take 1 [facility] 100 MG 11-14- tablet [facility] tablet 00:00: 23:59 (100 mg Medical 00 :00 total) by Center mouth daily for 30 days. thiamine 2022-0 2023- No 100mg QD Take 1 [facility] 100 MG 11-14- tablet [facility] tablet 00:00: 23:59 (100 mg Medical 00 :00 total) by Center mouth daily for 30 days. thiamine 2022-0 2023- No 100mg QD Take 1 [facility] 100 MG 11-14- tablet [facility] tablet 00:00: 23:59 (100 mg Medical 00 :00 total) by Center mouth daily for 30 days. atorvastati 2022-2023- No 40mg QD Take [address] [facility] [facility] (LIPITOR) 11-13- tablet (40 L ukes 40 MG 00:00: 23:59 mg total) Medica l tablet 00 :00 by mouth Center nightly. atorvastati 2022-2023- No 40mg QD Take [address] [facility] n (LIPITOR) 11-13- tablet (40 L ukes 40 MG 00:00: 23:59 mg total) Medica l tablet 00 :00 by mouth Center nightly. atorvastati 2022-2023- No 40mg QD Take [address] [facility] n (LIPITOR) 11-13- tablet (40 L ukes 40 MG 00:00: 23:59 mg total) Medica l tablet 00 :00 by mouth Center nightly. atorvastati 2022-2023- No 40mg QD Take [address] [facility] n (LIPITOR) 11-13- tablet (40 L ukes 40 MG 00:00: 23:59 mg total) Medica l tablet 00 :00 by mouth Center nightly. atorvastati 2023- No 40mg QD Take [address] [facility] n (LIPITOR) 11-13- tablet (40 L ukes 40 MG 00:00: 23:59 mg total) Medica l tablet 00 :00 by mouth Center nightly. atorvastati 2023- No 40mg QD Take [address] [facility] n (LIPITOR) 11-13- tablet (40 L ukes 40 MG 00:00: 23:59 mg total) Medica l tablet 00 :00 by mouth Center nightly. QUEtiapine 2022-2022- No 25mg Q.5D Take [address] (SEROquel) 11-13- tablet (25 Iqra kes 25 MG 00:00: 23:59 mg total) Medica l tablet 00 :00 by mouth 2 Center (two) times daily for 30 days. QUEtiapine 2022-0 2022- No 25mg Q.5D Take [address] (SEROquel) 11-13-28 tablet (25 Iqra kes 25 MG 00:00: 23:59 mg total) Medica l tablet 00 :00 by mouth 2 Center (two) times daily for 30 days. QUEtiapine 2022-0 2023- No 25mg Q.5D Take [address] (SEROquel) 11-13- tablet (25 Iqra kes 25 MG 00:00: 23:59 mg total) Medica l tablet 00 :00 by mouth 2 Center (two) times daily for 30 days. QUEtiapine 2023-0 2023- No 25mg Q.5D Take [address] (SEROquel) 11-13-28 tablet (25 Iqra kes 25 MG 00:00: 23:59 mg total) Medica l tablet 00 :00 by mouth 2 Center (two) times daily for 30 days. QUEtiapine 2023-0 2023- No 25mg Q.5D Take [address] (SEROquel) 11-13- tablet (25 Iqra kes 25 MG 00:00: 23:59 mg total) Medica l tablet 00 :00 by mouth 2 Center (two) times daily for 30 days. QUEtiapine 2023-0 2023- No 25mg Q.5D Take [address] (SEROquel) 11-13- tablet (25 Iqra kes 25 MG 00:00: [...] by mouth Center in the morning. furosemide 3-0 2023- No 20mg QD Take 1 [facility] [...] 50mg Q.5D Take [address] tartrate 5- 08-29 tablet (50 Luke s (LOPRESSOR) 00:00: [...] 50mg Q.5D Take [address] tartrate 5- 08-29 tablet (50 Luke s (LOPRESSOR) 00:00: 00:00 mg total) Medical 50 MG 00 :00 by mouth Center tablet in the morning and 1 tablet (50 mg total) before bedtime. atorvastati 2023-0 2023- No 40mg QD Take [address] [facility] [facility] (LIPITOR) -11 11-29 tablet (40 L ukes 40 MG 00:00: 00:00 mg total) Medica l tablet 00 :00 by mouth Center nightly. NIFEdipine 2023-0 2023- No 60mg QD Take [address] [facility] (PROCARDIA- 5- 08-29 tablet (60 L ukes XL) 60 [...] :00 by mouth Center nightly. NIFEdipine 2022-0 2023- No 60mg QD Take [address] [facility] (PROCARDIA- 08-11 08-29 tablet (60 L ukes XL) 60 MG 00:00: 00:00 mg total) Me dical (OSM) 24 hr 00 :00 by mouth Cent er tablet in the morning. metoprolol 2022-0 3- No 50mg Q.5D Take [address] [facility] [...] :00 by mouth Center nightly. NIFEdipine 2022-0 2023- No 60mg QD Take [address] (PROCARDIA- -27 -29 tablet (60 L ukes XL) 60 MG [...] Do all this for 7 days. metroNIDAZO 2022-2022- No 500mg Q.5D Take 1 CH I [...] mouth Center nightly. metroNIDAZO 2022-2022- No 500mg Q.[id number] Take [address] [facility] (FLAGYL) 08-03 [id number] tablet [facility] 500 MG 00:00: 00:00 3D [...] Center nightly. metroNIDAZO 2022-0 2022- No 500mg Q.[id number] Take [address] [facility] (FLAGYL) 08-03 [id number] tablet [facility] 500 MG 00:00: 00:00 3D [...] Center nightly. metroNIDAZO 2022-0 2022- No 500mg Q.[id number] Take [address] [facility] (FLAGYL) 08-03 [id number] tablet [facility] 500 MG 00:00: 00:00 3D [...] Center nightly. metroNIDAZO 3-0 2023- No 500mg Q.[id number] Take [address] [facility] (FLAGYL) 08-03 [id number] tablet [facility] 500 MG 00:00: 00:00 3D [...] :00 by mouth Center nightly. metroNIDAZO 3-0 3- No 500mg Q.[id number] Take [address] [facility] (FLAGYL) 08-03 [id number] tablet [facility] 500 MG 00:00: 00:00 3D [...] Center nightly. metroNIDAZO 2023-0 2023- No 500mg Q.[id number] Take [address] [facility] (FLAGYL) 08-03 [id number] tablet [facility] 500 MG 00:00: 00:00 3D (500 mg Medical tablet 00 :00 total) by Center mouth in the morning and 1 tablet (500 mg total) at noon and 1 tablet (500 mg total) in the evening. . atorvastati 2022-0 3- No 40mg QD Take [address] n (LIPITOR) 08-03 tablet (40 L ukes 40 MG 00:00: 00:00 mg total) Medica l tablet 00 :00 by mouth Center nightly. metroNIDAZO 2022-0 2022- No 500mg Q.[id number] Take [address] [facility] (FLAGYL) 08-03 [id number] tablet [facility] 500 MG 00:00: 00:00 3D [...] capsule (100 mg total) before bedtime. doxycycline 3-0 2023- No 100mg Q.5D Take [address] (MONODOX) 08-03 capsule [facility] 100 MG 00:00: 00:00 (100 mg Medical capsule 00 :00 total) by Center mouth in the morning and 1 capsule (100 mg total) before bedtime. doxycycline 3-0 2023- No 100mg Q.5D Take [...] capsule (100 mg total) before bedtime. doxycycline 2022-2022- No 100mg Q.5D Take 1 [...] mouth Medica l tablet 09 :00 daily. [place] divalproex 2022- No epilepsy 125mg QD Take [address] (DEPAKOTE) 5-15 05-15 mg by [facility] 125 MG EC 14:52: 00:00 mouth Medica l tablet 09 :00 daily. [place] divalproex 2022- No epilepsy 125mg QD Take [address] (DEPAKOTE) 5-15 05-15 mg by [facility] 125 MG EC 14:52: 00:00 mouth Medica l tablet 09 :00 daily. [place] divalproex 2022- No epilepsy 125mg QD Take [address] (DEPAKOTE) 5-15 05-15 mg by [facility] 125 MG EC 14:52: 00:00 mouth Medica l tablet 09 :00 daily. [place] divalproex 2022- No epilepsy 125mg QD Take [address] (DEPAKOTE) 5-15 05-15 mg by [facility] 125 MG EC 14:52: 00:00 mouth Medica l tablet 09 :00 daily. [place] divalproex 2022- No epilepsy 125mg QD Take [address] (DEPAKOTE) 5-15 05-15 mg by [facility] 125 MG EC 14:52: 00:00 mouth Medica l tablet 09 :00 daily. [place] divalproex 2022- No epilepsy 125mg QD Take [address] (DEPAKOTE) 5-15 05-15 mg by [facility] 125 MG EC 14:52: 00:00 mouth Medica l tablet 09 :00 daily. [place] divalproex 2018-03 Yes epilepsy 125mg QD Take [address] (DEPAKOTE) 2-04 mg by [facility] 125 MG EC 10:36: mouth Medical tablet 04 daily. [place] divorproex 2018-03 Yes epilepsy 125mg QD Take [address] (DEPAKOTE) 2-04 mg by [facility] 125 MG EC 10:36: mouth Medical tablet 04 daily. [place] divalproex 2018-03 Yes epilepsy 125mg QD Take [address] (DEPAKOTE) 2-04 mg by [facility] 125 MG EC 10:36: mouth Medical tablet 04 daily. [place] famotidine 2018-03 Yes 1{tbl} Take 1 [facility] [...] :00 every 12 Center (twelve) hours. famotidine 2018-03 No 1{tbl} Take [address] (PEPCID) 20 1-30 05-15 tablet by Iqra kes MG tablet 00:00: 00:00 mouth Medica l 00 :00 every 12 Center (twelve) hours. Vital Signs Vital Name Observation Time Observation Value Comments Source Respiratory rate 2022-11-29 01:59:00 18 /min [facility] Oxygen saturation in 2022-11-29 01:59:00 93 /min [facility] Arterial blood by [facility] Pulse oximetry Branch Systolic blood 2022-11-29 01:23:00 126 mm[Hg] [facility] sity pressure [facility] Diastolic blood 2022-11-29 01:23:00 75 mm[Hg] [facility] Heart rate 2022-11-29 01:23:00 72 /min [facility] Body temperature 2022-11-29 01:23:00 36.94 Nahomi [facility] Body weight 2022-11-28 05:16:00 70.421 kg [facility] BMI 2022-11-28 05:16:00 28.40 kg/m2 [facility] Body height 2022-11-24 16:52:00 157.5 cm [facility] WEIGHT 2022-11-12 07:05:00 74.6 kg [...] cm Heart rate 2022-11-13 20:42:00 75 /min [facility] Respiratory rate 2022-11-13 20:42:00 18 /min [facility] Oxygen saturation in 2022-11-13 20:42:00 98 /min [facility] Arterial blood by Medical Ce nter Pulse oximetry Systolic blood 2022-11-13 16:00:00 124 mm[Hg] [facility] Diastolic blood 2022-11-13 16:00:00 74 mm[Hg] [facility] Body temperature 2022-11-13 16:00:00 36.44 Nahomi [facility] Body weight 2022-11-12 07:05:00 74.6 kg [facility] BMI 2022-11-12 07:05:00 30.08 kg/m2 [facility] Heart rate 2022-08-11 12:33:33 76 /min [facility] Respiratory rate 2022-08-11 12:33:33 18 /min [facility] Oxygen saturation in 2022-08-11 12:33:33 97 /min [facility] Arterial blood by Medical Ce ntterry Pulse oximetry Body temperature 2022-08-11 12:33:11 36.56 Nahomi [facility] Systolic blood 2022-08-11 12:32:45 129 mm[Hg] [facility] Diastolic blood 2022-08-11 12:32:45 80 mm[Hg] [facility] Body height 2022-08-05 19:35:00 157.5 cm [facility] Body weight 2022-08-05 19:35:00 58.968 kg [facility] BMI 2022-08-05 19:35:00 23.78 kg/m2 [facility] Procedures Procedure Date / Time Performing Clinician Source Performed REFERRAL- 2023-01-24 06:01:00 Doctor Unassigned, No [facility] REQUEST/RESPONSE Name Medical Branch MAGNESIUM 2022-11-28 09:22:00 Cais Maddox [facility] BASIC METABOLIC PANEL 2022-11-28 09:22:00 Casi Maddox [facility] (NA, K, CL, CO2, Medical Branch GLUCOSE, BUN, CREATININE, CA) CBC WITH DIFF 2022-11-28 09:22:00 Casi Maddox [facility] CT ANGIOGRAPHY 2022-11-27 19:24:21 Tori Hanna [facility] CORONARIES WITH CARDIAC [facility] CALCIUM SCORE CT HEAD WO CONTRAST 2022-11-27 17:24:05 Milagros Choe [facility] CBC WITHOUT DIFF 2022-11-27 09:15:00 Lazaro [facility] MAGNESIUM 2022-11-26 09:21:00 Paul [facility] HEPATIC FUNCTION PANEL 2022-11-26 09:21:00 Lazaro [facility] ([id number]) (ALB,T.PRO,BILI [facility] Branch T,BU/BC,ALT,AST,ALK PHOS) BASIC METABOLIC PANEL 2022-11-26 09:21:00 Paul Munson [facility] (NA, K, CL, CO2, Medical Branch GLUCOSE, BUN, CREATININE, CA) CBC WITH DIFF 2022-11-26 09:21:00 Sue Miller [facility] ACTIVATED PARTIAL 2022-11-25 22:48:00 Joel Willis [facility] EKG-12 LEAD 2022-11-25 17:52:00 Issa [facility] [place] TROPONIN I 2022-11-25 17:51:00 Philip Chris [facility] HB ECG ROUTINE & RHYTHM 2022-11-25 17:39:36 Joel Willis [facility] ACTIVATED PARTIAL 2022-11-25 15:42:00 Lazaro [facility] TRANSTHORACIC ECHO (TTE) 2022-11-25 14:57:34 Joel Willis [facility] COMPLETE W/ CONTRAST Medical [facility] MAGNESIUM 2022-11-25 09:20:00 Joel Willis [facility] BASIC METABOLIC PANEL 2022-11-25 09:20:00 Joel Willis [facility] (NA, K, CL, CO2, Medical Branch GLUCOSE, BUN, CREATININE, CA) URINE DRUG (IMMUNOASSAY) 2022-11-25 07:32:00 Joel Willis [facility] - COMPREHENSIVE DRUG Medical [facility] SCREEN GC & CHLAMYDIA AMPLIFIED 2022-11-25 07:32:00 Joel Willis [facility] ASSAY [facility] URINE DRUG (LCMSMS) - 2022-11-25 07:32:00 Joel Willis [facility] SYNTHETIC OPIATES PANEL Medical Branch CBC WITHOUT DIFF 2022-11-25 07:31:00 Joel Willis [facility] ACTIVATED PARTIAL 2022-11-25 07:31:00 Joel Willis [facility] URINALYSIS 2022-11-25 07:31:00 Joel Willis [facility] MAGNESIUM 2022-11-25 01:31:00 Bruno [facility] BASIC METABOLIC PANEL 2022-11-25 01:31:00 Bruno [facility] (NA, K, CL, CO2, Medical Branch GLUCOSE, BUN, CREATININE, CA) ACTIVATED PARTIAL 2022-11-25 01:31:00 Lazaro [facility] TROPONIN I 2022-11-24 23:01:00 Lazaro [facility] [facility] BLOOD CULTURE SCREEN 2022-11-24 22:57:00 Joel iWllis [facility] XR CHEST 1 VW 2022-11-24 21:30:59 Lazaro [facility] US ABDOMEN LIMITED 2022-11-24 21:30:31 Joel Willis [facility] XR CHEST 1 VW 2022-11-24 20:37:00 Lazaro [facility] CT HEAD WO CONTRAST 2022-11-24 18:42:54 Joel Willis [facility] ACTIVATED PARTIAL 2022-11-24 17:43:00 Lazaro [facility] CBC WITH DIFF 2022-11-24 16:39:00 [facility] / MSSA SCREEN BY 2022-11-24 16:39:00 [facility], NARES [facility] TROPONIN I 2022-11-24 16:34:00 Lazaro [facility] THYROID STIMULATING 2022-11-24 16:34:00 [facility] HORMONE [facility] HEPATIC FUNCTION PANEL 2022-11-24 16:34:00 Lazaro [facility] ([id number]) (ALB,T.PRO,BILI Medical Branch T,BU/BC,ALT,AST,ALK PHOS) BASIC METABOLIC PANEL 2022-11-24 16:34:00 [facility] (NA, K, CL, CO2, Medical Branch GLUCOSE, BUN, CREATININE, CA) LIPID PANEL 2022-11-24 16:34:00 [facility] ([id number])(TOTAL Medical Branch CHOLESTEROL, TRIGLYCERIDES, HDL) GLYCOSYLATED HEMOGLOBIN 2022-11-24 16:34:00 [facility] (A1C) Medical [place] PROTHROMBIN TIME / INR 2022-11-24 16:34:[facility] HE[facility]IS B SURFACE 2022-11-24 16:34:00 Willis [facility] ANTIBODY Medical Branch HEPATITIS B SURFACE 2022-11-24 16:34:00 Willis [facility] ANTIGEN [facility] HCV ANTIBODY 2022-11-24 16:34:00 Lazaro [facility] HEPATITIS A VIRUS 2022-11-24 16:34:00 Lazaro [facility] ANTIBODY IGM Medical Branch N-TERMINAL PRO-BNP 2022-11-24 16:34:00 Lazaro [facility] HIV 1/2 AG-AB WITH 2022-11-24 16:34:00 Lazaro [facility] REFLEX [facility] EKG-12 LEAD 2022-11-24 16:22:20 Issa [facility] POCT-GLUCOSE METER 2022-11-13 12:03:00 Merchant [facility] PHOSPHORUS 2022-11-13 04:55:00 Merchant [facility] MAGNESIUM 2022-11-13 04:55:00 Merchant [facility] CBC W/PLT COUNT & AUTO 2022-11-13 04:55:00 Merchant [facility] DIFFERENTIAL [place] CBC W/PLT COUNT & AUTO 2022-11-13 04:55:00 Merchant [facility] DIFFERENTIAL [place] POCT-GLUCOSE METER 2022-11-12 21:27:00 Merchant [facility] POCT-GLUCOSE METER 2022-11-12 18:07:00 Merchant, [facility] POCT-GLUCOSE METER 2022-11-12 13:01:00 Merchant, [facility] POCT-GLUCOSE METER 2022-11-12 06:34:00 Kaylaboston [facility] hospitaljas[facility] BASIC METABOLIC PANEL 2022-11-12 04:44:00 Merchant [facility] PHOSPHORUS 2022-11-12 04:44:00 Merchant [facility] MAGNESIUM 2022-11-12 04:44:00 Merchant, [facility] CBC W/PLT COUNT & AUTO 2022-11-12 04:44:00 Merchant, [facility] CBC W/PLT COUNT & AUTO 2022-11-12 04:44:00 Kaylahant, [facility] POCT-GLUCOSE METER 2022-11-11 23:33:00 Kaylahant, [facility] POCT-GLUCOSE METER 2022-11-11 17:24:00 Merchant, [facility] POCT-GLUCOSE METER 2022-11-11 12:50:00 Merchant, [facility] POCT-GLUCOSE METER 2022-11-11 07:10:[address] [facility] BASIC METABOLIC PANEL 2022-11-11 04:41:00 Merchant, [facility] PHOSPHORUS 2022-11-11 04:41:00 Merchant, [facility] MAGNESIUM 2022-11-11 04:41:00 Merchant, [facility] CBC W/PLT COUNT & AUTO 2022-11-11 04:41:[address] [facility], [facility] CBC W/PLT COUNT & AUTO 2022-11-11 04:41:[address] [facility]michaelt, [facility] POCT-GLUCOSE METER 2022-11-11 00:15:00 Merchant, [facility] POCT-GLUCOSE METER 2022-11-10 17:10:00 Merchant, [facility] POCT-GLUCOSE METER 2022-11-10 16:56:00 Merchant, [facility] POCT-GLUCOSE METER 2022-11-10 12:12:00 Kaylahant, [facility] POCT-GLUCOSE METER 2022-11-10 06:57:00 Merchant, [facility] BASIC METABOLIC PANEL 2022-11-10 04:59:00 Merchant, [facility] PHOSPHORUS 2022-11-10 04:59:00 Merchant, [facility] MAGNESIUM 2022-11-10 04:59:00 Merchant, [facility] CBC W/PLT COUNT & AUTO 2022-11-10 04:59:00 Merchant, [facility] CBC W/PLT COUNT & AUTO 2022-11-10 04:59:00 Merchant, [facility] POCT-GLUCOSE METER 2022-11-09 23:21:00 Merchant, [facility] POCT-GLUCOSE METER 2022-11-09 17:12:00 Merchant, [facility] POCT-GLUCOSE METER 2022-11-09 12:09:00 Merchant, [facility] VANCOMYCIN LEVEL, TROUGH 2022-11-09 09:28:00 Clyde Florentino [facility] POCT-GLUCOSE METER 2022-11-09 05:53:00 Merchant, [facility] BASIC METABOLIC PANEL 2022-11-09 03:49:00 [facility] PHOSPHORUS 2022-11-09 03:49:00 [facility] MAGNESIUM 2022-11-09 03:49:00 [facility] CBC W/PLT COUNT & AUTO 2022-11-09 03:49:00 Ali [facility] CBC W/PLT COUNT & AUTO 2022-11-09 03:49:00 Ali [facility] POCT-GLUCOSE METER 2022-11-08 23:58:00 Merchant, [facility] BASIC METABOLIC PANEL 2022-11-08 18:20:00 [facility] POCT-GLUCOSE METER 2022-11-08 17:17:00 Merchant, [facility] POCT-GLUCOSE METER 2022-11-08 12:24:00 Goyo Hankins [facility] POCT-GLUCOSE METER 2022-11-08 05:58:00 Juan J [facility] Meeks [facility] BASIC METABOLIC PANEL 2022-11-08 04:09:00 Juan J [facility] SalterConstantino [facility] PHOSPHORUS 2022-11-08 04:09:00 Juan J [facility] Meeks [facility] MAGNESIUM 2022-11-08 04:09:00 Juan J [facility] CBC W/PLT COUNT & AUTO 2022-11-08 04:09:00 [facility] CBC W/PLT COUNT & AUTO 2022-11-08 04:09:00 Juan J [facility] XR ABDOMEN/KUB 1 VIEW 2022-11-07 21:11:00 Juan JMir [facility] BASIC METABOLIC PANEL 2022-11-07 17:58:00 Juan J [facility] Meeks [facility] BLOOD CULTURE 2022-11-07 10:27:00 Tiffanie Noel [facility] POCT-GLUCOSE METER 2022-11-07 06:01:00 Amanda Head [facility] Hareshkumar [place] HIGH SENSITIVITY 2022-11-07 03:17:00 Tiffanie Noel [facility] TROPONIN I Center BASIC METABOLIC PANEL 2022-11-07 03:17:00 Agustin rEick [facility] Keanu [place] PHOSPHORUS 2022-11-07 03:17:00 Agustin Erick, [facility] Ignacio [place] MAGNESIUM 2022-11-07 03:17:00 [facility] [place] CBC W/PLT COUNT & AUTO 2022-11-07 03:17:00 Agustin Erick, [facility] CBC W/PLT COUNT & AUTO 2022-11-07 03:17:00 Saeid Camp [facility] POCT-GLUCOSE METER 2022-11-07 00:13:00 Amanda Head [facility] Hareshkumar [place] HIGH SENSITIVITY 2022-11-06 21:18:00 Tiffanie Neol [facility] TROPONIN I [place] BLOOD CULTURE 2022-11-06 14:48:00 [facility] W/ REFLEX 2022-11-06 14:48:00 Jose Kirk [facility] URINE CULTURE [facility] PT/APTT 2022-11-06 14:47:00 Jose Kirk [facility] HIGH SENSITIVITY 2022-11-06 14:47:00 Tiffanie Noel [facility] TROPONIN I [place] BLOOD GAS, ARTERIAL 2022-11-06 14:46:00 Jose Kirk [facility] XR CHEST 1 VIEW PORTABLE 2022-11-06 12:18:35 Jose Kirk [facility] / BEDSIDE [facility] BLOOD CULTURE 2022-11-06 10:38:00 Jose Kirk [facility] LACTIC ACID, VENOUS 2022-11-06 10:38:00 Jose Kirk [facility] PROCALCITONIN 2022-11-06 10:38:00 [facility] HIGH SENSITIVITY 2022-11-06 10:38:00 Jose Kirk [facility] TROPONIN I [facility] POCT-BLOOD GASES, 2022-11-06 10:38:00 [facility] POCT-SODIUM 2022-11-06 10:38:00 Elvia [facility] POCT-POTASSIUM 2022-11-06 10:38:00 Elvia [facility] POCT-HEMOGLOBIN 2022-11-06 10:38:00 Elvia [facility] POCT-HEMATOCRIT 2022-11-06 10:38:00 [facility] PO[facility]UCOSE 2022-11-06 10:38:00 Elvia [facility] ECG 12-LEAD 2022-11-06 10:26:42 Unknown, Hl7 [facility] ECG 12-LEAD 2022-11-06 10:24:58 Unknown, Hl7 [facility] ECG 12-LEAD 2022-11-06 10:23:56 Unknown, Hl7 [facility] ECG 12-LEAD 2022-11-06 10:23:56 Unknown, Hl7 [facility] POCT-GLUCOSE METER 2022-11-06 10:09:[address] [facility] IV 2022-11-06 08:46:36 Jhony Curtis [facility] POCT-GLUCOSE METER 2022-11-06 05:34:00 [facility] BASIC METABOLIC PANEL 2022-11-06 04:38:00 [facility] Ign[facility] [place] PHOSPHORUS 2022-11-06 04:38:00 [facility] 2022-11-06 04:38:00 [facility] CBC W/PLT COUNT & AUTO 2022-11-06 04:38:00 [facility] CBC W/PLT COUNT & AUTO 2022-11-06 04:38:00 Saeid Camp [facility] POCT-GLUCOSE METER 2022-11-05 23:23:00 [facility] POCT-[facility]UCOSE METER 2022-11-05 17:17:00 [facility] XR ABDOMEN/KUB 1 VIEW 2022-11-05 14:12:00 [facility] POCT-GLUCOSE METER 2022-11-05 12:42:00 [facility] POCT-GLUCOSE METER 2022-11-05 06:14:00 [facility] BASIC METABOLIC PANEL 2022-11-05 03:34:00 Agustin Erick, [facility] Ignacio [place] PHOSPHORUS 2022-11-05 03:34:00 Agustin Erick, [facility] Ignacio [place] MAGNESIUM 2022-11-05 03:34:00 [facility]ustin [facility]rick, [facility] [place] CBC W/PLT COUNT & AUTO 2022-11-05 03:34:00 [facility]in [facility], [facility] [place] CBC W/PLT COUNT & AUTO 2022-11-05 03:34:00 Saeid Camp Manuel [facility] POCT-GLUCOSE METER 2022-11-04 23:14:00 Elvia [facility] SODIUM 2022-11-04 18:28:00 KanakiHumphrey birminghamal Manuel [facility] POCT-GLUCOSE METER 2022-11-04 16:53:00 Tai [facility] POCT-GLUCOSE METER 2022-11-04 12:30:00 Tai [facility] SODIUM 2022-11-04 12:17:00 KanakiaHumphreyal Manuel [facility] POCT-GLUCOSE METER 2022-11-04 05:41:00 Elvia [facility] BASIC METABOLIC PANEL 2022-11-04 04:12:00 Agustin Erick, [facility] Ignacio [place] PHOSPHORUS 2022-11-04 04:12:00 Agustin Erick, [facility] Ignacio [place] MAGNESIUM 2022-11-04 04:12:00 Agustin [facility], [facility] [place] CBC W/PLT COUNT & AUTO 2022-11-04 04:12:00 [facility] [place] CBC W/PLT COUNT & AUTO 2022-11-04 04:12:00 Kanakia Saeid Manuel [facility] POCT-GLUCOSE METER 2022-11-04 00:14:00 Tai [facility] SODIUM 2022-11-03 18:20:00 KanSaeid sanders Mnauel [facility] POCT-GLUCOSE METER 2022-11-03 16:39:00 Elvia [facility] SODIUM 2022-11-03 12:06:00 Saeid Camp [facility] POCT-GLUCOSE METER 2022-11-03 11:53:00 Elvia [facility] XR ABDOMEN/KUB 1 VIEW 2022-11-03 11:27:11 Elvia [facility] POCT-GLUCOSE METER 2022-11-03 05:39:00 Elvia [facility] BASIC METABOLIC PANEL 2022-11-03 05:04:00 Agustin Erick, [facility] Ignacio [place] PHOSPHORUS 2022-11-03 05:04:00 Agustin Erick, [facility] Ignacio [place] MAGNESIUM 2022-11-03 05:04:00 [facility] W/[facility]T COUNT & AUTO 2022-11-03 05:04:00 [facility] W/PLT COUNT & AUTO 2022-11-03 05:04:00 ShonSaeid sanders [facility] DIFFERENTIAL [place] POCT-GLUCOSE METER 2022-11-02 23:23:00 Elvia [facility] SODIUM 2022-11-02 18:10:00 Kantommy Saeid [facility] POCT-GLUCOSE METER 2022-11-02 17:45:00 Elvia [facility] POCT-GLUCOSE METER 2022-11-02 12:55:00 Elvia [facility] SODIUM 2022-11-02 12:29:00 Saeid Camp [facility] CT BRAIN WITHOUT IV 2022-11-02 11:03:[address] [facility] POCT-GLUCOSE METER 2022-11-02 06:10:00 [facility] 2022-11-02 05:19:00 Conrado Saeid [facility] BASIC METABOLIC PANEL 2022-11-02 05:19:00 Agustin Erick, [facility] Ignacio [place] PHOSPHORUS 2022-11-02 05:19:00 Agustin Erick, [facility] [place] MAGNESIUM 2022-11-02 05:19:00 [facility] CBC W/PLT COUNT & AUTO 2022-11-02 05:19:00 [facility] W/PLT COUNT & AUTO 2022-11-02 05:19:00 Humphrey Campal [facility] POCT-GLUCOSE METER 2022-11-02 00:07:00 [facility] SODIUM 2022-11-01 18:31:00 Conrado [facility] POCT-GLUCOSE METER 2022-11-01 18:27:00 Alyssa [facility] 2D ECHO W/ DOPPLER 2022-11-01 15:27:00 Conrado [facility] (CW/PW/COLOR) [place] SODIUM 2022-11-01 13:53:00 Conrado [facility] VANCOMYCIN LEVEL, TROUGH 2022-11-01 08:58:00 Yaima Mccracken [facility] MAGNESIUM 2022-11-01 08:58:00 [facility] POTASSIUM 2022-11-01 08:58:00 Karan [facility] BASIC METABOLIC PANEL 2022-11-01 03:10:00 [facility] [place] PHOSPHORUS 2022-11-01 03:10:00 [facility] MAGNESIUM 2022-11-01 03:10:00 [facility] CBC W/PLT COUNT & AUTO 2022-11-01 03:10:00 Gaustin [facility] W/PLT COUNT & AUTO 2022-11-01 03:10:00 Humphrey Campal [facility] DIFFERENTIAL [place] SODIUM 2022-10-31 23:53:00 Shontommy [facility] SODIUM 2022-10-31 17:42:00 Gladys [facility] BLOOD CULTURE 2022-10-31 15:54:00 Alyssa [facility] SARS-COV2/INFLUENZA/RSV 2022-10-31 11:52:00 [facility] RT-PCR Center SODIUM 2022-10-31 11:52:00 Conrado [facility] MAGNESIUM 2022-10-31 11:52:00 Nehemias Russo [facility] POCT-GLUCOSE METER 2022-10-31 11:49:00 Kathy Zepeda [facility] B-TYPE NATRIURETIC 2022-10-31 09:42:00 Conrado Saeid [facility] (BNP) Center MRSA SCREEN 2022-10-31 08:30:00 Clyde Florentino [facility] BASIC METABOLIC PANEL 2022-10-31 04:01:00 [facility] Ign[facility] [place] PHOSPHORUS 2022-10-31 04:01:00 [facility] MAGNESIUM 2022-10-31 04:01:00 [facility] CBC W/PLT COUNT & AUTO 2022-10-31 04:01:00 [facility] W/PLT COUNT & AUTO 2022-10-31 04:01:00 Saeid Campdip [facility] VENOUS DOPPLER LEGS 2022-10-31 03:37:28 Sreekanth Guevara [facility] VENOUS DOPPLER ARMS 2022-10-31 03:31:47 Sreekanth Guevara [facility] HIGH SENSITIVITY 2022-10-30 22:19:00 Agustin Erick [facility] TROPONIN I [facility] SODIUM 2022-10-30 22:19:00 [facility] 12-LEAD 2022-10-30 17:27:26 Unknown, Hl7 [facility] ECG 12-LEAD 2022-10-30 17:26:59 Sreekanth Guevara [facility] ECG 12-LEAD 2022-10-30 17:26:59 Unknown, Hl7 [facility] XR ABDOMEN/KUB 1 VIEW 2022-10-30 17:09:00 Conrado Saeid [facility] PORTABLE Center LACTIC ACID, ARTERIAL 2022-10-30 16:48:00 Donnie Gonzalez [facility] HIGH SENSITIVITY 2022-10-30 16:48:00 Agustin Erick [facility] TROPONIN I [facility] SODIUM 2022-10-30 16:48:00 Conrado [facility] BLOOD GAS, ARTERIAL 2022-10-30 14:41:00 Agustin Erick [facility] BLOOD GAS, ARTERIAL 2022-10-30 12:13:00 Nehemias Russo [facility] SODIUM 2022-10-30 12:12:00 Kanakioscar, [facility] LACTIC ACID, ARTERIAL 2022-10-30 12:12:00 Donnie Gonzalez [facility] XR CHEST 1 VIEW PORTABLE 2022-10-30 10:28:00 Kelly Medellin [facility] Medical / BEDSIDE [facility] PROCALCITONIN 2022-10-30 10:14:00 Donnie Gonzalez [facility] HIGH SENSITIVITY 2022-10-30 10:14:00 Sreekanth Guevara [facility] Center ECG 12-LEAD 2022-10-30 10:02:46 Unknown, Hl7 [facility] ECG 12-LEAD 2022-10-30 10:02:15 [facility] 12-LEAD 2022-10-30 10:02:15 Unknown, Hl7 [facility] CT BRAIN WITHOUT IV 2022-10-30 06:24:[address] [facility] BASIC METABOLIC PANEL 2022-10-30 03:19:00 Agustin Erick, [facility] PHOSPHORUS 2022-10-30 03:19:00 [facility] MAGNESIUM 2022-10-30 03:19:00 [facility] CBC W/PLT COUNT & AUTO 2022-10-30 03:19:00 [facility] W/PLT COUNT & AUTO 2022-10-30 03:19:00 Saeid Camp [facility] DIFFERENTIAL Center SODIUM 2022-10-29 23:11:00 Saeid Camp Manuel [facility] XR ABDOMEN/KUB 1 VIEW 2022-10-29 18:16:00 Sreekanth Guevara [facility] PORTABLE Center SODIUM 2022-10-29 18:14:00 KanSaeid sanders Manuel [facility] CREATININE, RANDOM URINE 2022-10-29 14:52:00 Pamela Angela [facility] SODIUM 2022-10-29 12:19:00 Kannigela, Saeid Manuel [facility] SODIUM, RANDOM URINE 2022-10-29 12:19:00 Saeid Campdip [facility] UREA NITROGEN, RANDOM 2022-10-29 12:19:00 Saeid Camp [facility] URINE Center OSMOLALITY, URINE 2022-10-29 12:19:00 ShonnigeloscarSaeid [facility] OSMOLALITY, SERUM 2022-10-29 12:19:00 ShonSaeid sanders Manuel [facility] DRUG SCREEN, URINE, 2022-10-29 12:19:00 Agustin Erick, [facility] COMPREHENSIVE [facility] HCG, QUANTITATIVE, 2022-10-29 12:19:00 Agustin Erick, [facility] CTA CAROTID 2022-10-29 10:40:[address] [facility] [address] BRAIN WITHOUT IV 2022-10-29 10:30:00 [facility] CONTRAST [place] CTA BRAIN 2022-10-29 10:20:00 Gosia [facility] RAPID DRUG SCREEN, URINE 2022-10-29 08:37:00 Saeid Camp [facility] SCREEN, URINE 2022-10-29 08:37:00 [place] [facility] BLOOD GAS, ARTERIAL 2022-10-29 07:53:00 Gonzalez, [facility] XR CHEST 1 VIEW PORTABLE 2022-10-29 04:06:00 [facility] BEDSIDE Center US GUIDE, VASCULAR 2022-10-29 03:47:51 [facility] ACCESS Center HI INSERT 2022-10-29 03:46:45 Gosia [facility] CATH,ART,PERCUT,SHORTTER Center M BLOOD GAS, ARTERIAL 2022-10-29 03:46:00 [facility] CBC W/PLT COUNT & AUTO 2022-10-29 03:45:00 Tanvir Eliselie [facility] DIFFERENTIAL Center COMPREHENSIVE METABOLIC 2022-10-29 03:45:00 Pitmaico [facility] PANEL Center MAGNESIUM 2022-10-29 03:45:00 [facility] PH[facility]US 2022-10-29 03:45:00 [facility] CALCIUM, IONIZED 2022-10-29 03:45:00 [facility] TSH/FREE T4 IF INDICATED 2022-10-29 03:45:00 [facility] HEMO[facility] A1C 2022-10-29 03:45:00 [facility] PROTHROMBIN TIME/INR 2022-10-29 03:45:00 [facility] APTT 2022-10-29 03:45:00 [facility] T4, FREE 2022-10-29 03:45:00 [facility] CBC W/PLT COUNT & AUTO 2022-10-29 03:45:00 [facility] ECG 12-LEAD 2022-10-29 03:28:02 Unknown, Hl7 [facility] ECG 12-LEAD 2022-10-29 03:27:17 [facility] 12-LEAD 2022-10-29 03:27:17 Unknown, Hl7 [facility] EKG-SCANNED 2022-10-29 00:00:00 Provider, [facility] BASIC METABOLIC PANEL 2022-08-11 04:41:00 Clifton De Luna [facility] [place] MAGNESIUM 2022-08-11 04:41:00 Kristin Shah [facility] CALCIUM, IONIZED 2022-08-11 04:41:00 [facility] PHOSPHORUS 2022-08-11 04:41:00 [facility] CBC W/PLT COUNT & AUTO 2022-08-11 04:41:00 [facility] HospitalAl[facility]Feder[facility]Sur[facility] CBC W/PLT COUNT & AUTO 2022-08-11 04:41:00 [facility] BASIC METABOLIC PANEL 2022-08-10 16:09:00 [facility] SODIUM, RANDOM URINE 2022-08-10 09:33:00 [facility] UREA NITROGEN, RANDOM 2022-08-10 09:33:00 [facility] CREATININE, RANDOM URINE 2022-08-10 09:33:00 [facility] OSMOLALITY, URINE 2022-08-10 09:33:00 [facility] TSH/FREE T4 IF INDICATED 2022-08-10 09:33:00 [facility] CORTISOL 2022-08-10 09:33:00 [facility] OSMOLALITY, SERUM 2022-08-10 09:33:00 [facility] T4, FREE 2022-08-10 09:33:00 [facility] CBC (HEMOGRAM ONLY) 2022-08-10 05:06:00 [facility] BASIC METABOLIC PANEL 2022-08-10 05:06:00 [facility]NESIUM 2022-08-10 05:06:00 [facility] CBC (HEMOGRAM ONLY) 2022-08-09 03:38:00 [facility] BASIC METABOLIC PANEL 2022-08-09 03:38:00 [facility] MAGNESIUM 2022-08-09 03:38:00 [facility] CBC (HEMOGRAM ONLY) 2022-08-08 04:25:00 [facility] BASIC METABOLIC PANEL 2022-08-08 04:25:00 Clifton De Luna [facility] B-TYPE NATRIURETIC 2022-08-08 04:25:00 [facility]st[facility] hospital[facility] FACTOR (BNP) [facility] STD PANEL - CT/GC RNA 2022-08-07 16:52:00 [facility] FUNGUS CULTURE + SMEAR 2022-08-07 10:22:00 Aida Alcala [facility] ANAEROBIC CULTURE 2022-08-07 10:22:00 Aida Alcala [facility] WOUND CULTURE + GRAM 2022-08-07 10:22:00 [facility] STAIN [facility] RADIOLOGIC GUIDANCE & 2022-08-07 10:20:00 [facility] BASIC METABOLIC PANEL 2022-08-07 03:42:00 [facility] CBC (HEMOGRAM ONLY) 2022-08-07 03:41:00 [facility] CT ABDOMEN/PELVIS WITH 2022-08-06 00:22:00 Aida Alcala [facility] IV CONTRAST [facility] SCREEN, URINE 2022-08-05 21:06:00 Ronal [facility] CBC W/PLT COUNT & AUTO 2022-08-05 20:40:00 Aida Alcala [facility] DIFFERENTIAL [facility] BASIC METABOLIC PANEL 2022-08-05 20:40:00 [facility]R 2022-08-05 20:40:00 [facility] TYPE AND SCREEN, 2022-08-05 20:40:00 [facility] CBC W/PLT COUNT & AUTO 2022-08-05 20:40:00 Aida Alcala [facility] DIFFERENTIAL [facility] (CELLAVISION MANUAL 2022-08-05 20:40:00 Aida Alcala [facility] Medical DIFF) [facility] TRANSTHORACIC ECHO FOR 2022-08-03 13:59:39 Unknown, Hl7 Doctor M[facility] Hospital Center BASIC METABOLIC PANEL 2022-08-03 04:31:00 [facility] n[facility] CBC (HEMOGRAM ONLY) 2022-08-03 04:31:00 [facility] CBC W/PLT COUNT & AUTO 2022-08-02 13:09:00 [facility] BASIC METABOLIC PANEL 2022-08-02 13:09:00 [facility] CBC W/PLT COUNT & AUTO 2022-08-02 13:09:00 [facility] (CELLAVISION MANUAL 2022-08-02 13:09:00 [facility]) [place] MYOCARDIAL PERFUSION 2022-08-01 13:31:00 JoeJudy [facility] SPECT, PHARM [facility] TREADMILL 2022-08-01 11:39:56 Unknown, Hl7 [facility](NON-NUCLEAR Center TREADMILL) ECG 12-LEAD 2022-08-01 10:14:26 Unknown, Hl7 [facility] ECG 12-LEAD 2022-08-01 10:14:26 Unknown, 7 [facility] ECG 12-LEAD 2022-08-01 10:13:38 Unknown, Hl7 [facility] ECG 12-LEAD 2022-08-01 10:13:38 Unknown, 7 [facility] CBC W/PLT COUNT & AUTO 2022-08-01 04:47:00 Leonid Harris [facility] BASIC METABOLIC PANEL 2022-08-01 04:47:00 Leonid Harris [facility] MAGNESIUM 2022-08-01 04:47:00 Leonid Harris [facility] PHOSPHORUS 2022-08-01 04:47:00 [facility] HEM[facility] A1C 2022-08-01 04:47:00 [facility] PT/APTT 2022-08-01 04:47:00 [facility] HCG, QUANTITATIVE, 2022-08-01 04:47:00 [facility] Center TYPE AND SCREEN, 2022-08-01 04:47:00 Leonid Harris [facility] AUTOMATED Center CBC W/PLT COUNT & AUTO 2022-08-01 04:47:00 Leonid Harris [facility] DIFFERENTIAL [place] (CELLAVISION MANUAL 2022-08-01 04:47:00 [facility] Center 2D ECHO W/ DOPPLER 2022-07-31 15:20:04 [facility] (CW/PW/COLOR) [facility] ECG 12-LEAD 2022-07-31 15:01:36 [facility] ECG 12-LEAD 2022-07-31 15:01:36 Unknown, Hl7 [facility] US ENDOVAGINAL EV 2022-07-31 12:52:00 [facility] US PELVIS 2022-07-31 12:52:00 [facility] US DOPPLER 2022-07-31 12:52:00 [facility] BASIC METABOLIC PANEL 2022-07-31 03:09:00 Dewayne Reilly [facility] An Center MAGNESIUM 2022-07-31 03:09:00 Dewayne Reilly [facility] An [place] PHOSPHORUS 2022-07-31 03:09:00 [facility] CBC W/PLT COUNT & AUTO 2022-07-31 03:09:00 [facility] DIFFERENTIAL An Center LIPID PANEL 2022-07-31 03:09:00 Judy Barros [facility] CBC W/PLT COUNT & AUTO 2022-07-31 03:09:00 PieroclydeDewayne Pis [facility] DIFFERENTIAL An Center XR CHEST 1 VIEW PORTABLE 2022-07-30 16:42:00 PieroclydeDewayne P is [facility] Medical / BEDSIDE An Center CBC W/PLT COUNT & AUTO 2022-07-30 15:38:00 [facility] Dewayne Pis [facility] DIFFERENTIAL An Center BASIC METABOLIC PANEL 2022-07-30 15:38:00 [facility] Dewayne Pis [facility] Medical An Center PROTHROMBIN TIME/INR 2022-07-30 15:38:00 [facility] Pis [facility] Medical An Center MAGNESIUM 2022-07-30 15:38:00 [facility] Dewayne Pis [facility] An Center CBC W/PLT COUNT & AUTO 2022-07-30 15:38:00 Dayron Foster [facility] Medical DIFFERENTIAL [facility] Planned Activity Planned Date Details Comments Source Future Scheduled 2025-07-31 Lipid panel (procedure) [facility] 00:00:00 [code = 12815883] Medical Ce nter Future Scheduled 2025-07-31 Lipid panel (procedure) [facility] 00:00:00 [code = 43145467] Medical Ce nter Future Scheduled 2025-07-31 Lipid panel (procedure) [facility] 00:00:00 [code = 81664430] Medical Ce nter Future Scheduled 2025-07-31 Lipid panel (procedure) [facility] 00:00:00 [code = 10931671] Medical Ce nter Future Scheduled 2025-07-31 Lipid panel (procedure) [facility] 00:00:00 [code = 74274987] Medical Ce nter Future Scheduled 2025-07-31 Lipid panel (procedure) [facility] 00:00:00 [code = 20292720] Medical Ce nter Future Scheduled 2025-07-31 Lipid panel (procedure) [facility] 00:00:00 [code = 47002074] Medical Ce nter Future Scheduled 2022-11-16 Influenza [...] [facility]ukes Test 00:00:00 [code = INFLUENZA VACCINE Il dical Center (#1)] Future Scheduled 2021 Lipid panel (procedure) [facility] 00:00:00 [code = 28789883] Medical Ce nter Future Scheduled 2021-03-18 DEPRESSION [...] cervix Medical C enter (procedure) [code = 145028300] Future Scheduled 1997 Screening for malignant [facility] 00:00:00 neoplasm of cervix Medical C enter (procedure) [code = 189282431] Future Scheduled 1997 Screening for malignant [facility] 00:00:00 neoplasm of cervix Medical C enter (procedure) [code = 952339931] Future Scheduled 1997 Screening for malignant [facility] 00:00:00 neoplasm of cervix Medical C enter (procedure) [code = 294935823] Future Scheduled 1997 Screening for malignant [facility] 00:00:00 neoplasm of cervix Medical C enter (procedure) [code = 379414086] Future Scheduled 1997 Screening for malignant [facility] 00:00:00 neoplasm of cervix Medical C enter (procedure) [code = 617857516] Future Scheduled 1997 Screening for malignant [facility] 00:00:00 neoplasm of cervix Medical C enter (procedure) [code = 329864717] Future Scheduled 1997 Screening for malignant [facility] 00:00:00 neoplasm of cervix Medical C enter (procedure) [code = 839313230] Future Scheduled 1995 DTAP/TDAP/TD VACCINES (1 [facility] [...] screening Medical Cent er (procedure) [code = 765672176] Future Scheduled [address] [facility]00 virus screening Medical Cent er (procedure) [code = 250865540] Future Scheduled [address] Human immunodeficiency [facility] 00:[facility]:00 virus screening Medical Cent er (procedure) [code = 329834192] Future Scheduled [address] Human immunodeficiency [facility] 00:00:00 virus screening Medical Cent er (procedure) [code = 770935056] Future Scheduled [address] Human immunodeficiency [facility] 00:00:00 virus screening Medical Cent er (procedure) [code = 082328326] Future Scheduled [address] [facility] 00:00:00 virus screening Medical Cent er (procedure) [code = 089316668] Future Scheduled [address] [facility] 00:00:00 virus screening Medical Cent er (procedure) [code = 844744571] Future Scheduled [address] [facility] 00:00:00 Counseling and Screening [facility] (12+) [code = Tobacco Cessation Counseling and Screening (12+)] Future Scheduled [address] [facility] 00:00:00 Counseling and Screening Med [facility] (12+) [code = Tobacco Cessation Counseling and Screening (12+)] Future Scheduled [address] [facility] 00:00:00 Counseling and Screening [facility] (12+) [code = Tobacco Cessation Counseling and Screening (12+)] Future Scheduled [address] [facility] 00:00:00 Counseling and Screening [facility] (12+) [code = Tobacco Cessation Counseling and [...] colon Medical Ce nter (procedure) [code = 924001508] Future Scheduled 1976 Screening for malignant [facility] 00:00:00 neoplasm of colon Medical Ce nter (procedure) [code = 676304343] Future Scheduled 1976 Screening for malignant [facility] 00:00:00 neoplasm of colon Medical Ce nter (procedure) [code = 877536192] Future Scheduled 1976 Screening for malignant [facility] 00:00:00 neoplasm of colon Medical Ce nter (procedure) [code = 458695086] Future Scheduled 1976 Sigmoidoscopy [code = [facility] S[facility]oidoscopy] Medical Cente r Future Scheduled 1976 CT Colonography (combo) [facility] 00:00:00 [code = CT Colonography Medi wale Center (combo)] Future Scheduled 1976 Screening for malignant [facility] 00:00:00 neoplasm of colon Medical Ce nter (procedure) [code = 224287230] Future Scheduled 1976 Screening for malignant [facility] 00:00:00 neoplasm of colon Medical Ce nter (procedure) [code = 373671421] Future Scheduled 1976 Screening for malignant [facility] 00:00:00 neoplasm of colon Medical Ce nter (procedure) [code = 327973238] Future Scheduled 1976 Screening for malignant [facility] 00:00:00 neoplasm of colon Medical Ce nter (procedure) [code = 511867300] Future Scheduled 1976 Sigmoidoscopy [facility]code = [facility] S[facility]oidoscopy] Medical Cente r Future Scheduled 1976 CT Colonography (combo) [facility] 00:00:00 [code = CT Colonography Medi wale Center (combo)] Future Scheduled 1976 Screening for malignant [facility] 00:00:00 neoplasm of colon Medical Ce nter (procedure) [code = 792650322] Future Scheduled 1976 Screening for malignant [facility] 00:00:00 neoplasm of colon Medical Ce nter (procedure) [code = 375526703] Future Scheduled 1976 Screening for malignant [facility] 00:00:00 neoplasm of colon Medical Ce nter (procedure) [code = 399187367] Future Scheduled 1976 Screening for malignant [facility] 00:00:00 neoplasm of colon Medical Ce nter (procedure) [code = 974212458] Future Scheduled 1976 Sigmoidoscopy [facility]code = [facility]oidoscopy] Medical Cente r Future Scheduled 1976 CT Colonography (combo) [facility] 00:00:00 [code = CT Colonography Medi wale Center (combo)] Future Scheduled 1976 Screening for malignant [facility] 00:00:00 neoplasm of colon Medical Ce nter (procedure) [code = 837727040] Future Scheduled 1976 Screening for malignant [facility] 00:00:00 neoplasm of colon Medical Ce nter (procedure) [code = 932397770] Future Scheduled 1976 Screening for malignant [facility] 00:00:00 neoplasm of colon Medical Ce nter (procedure) [code = 782518917] Future Scheduled 1976 Screening for malignant [facility] 00:00:00 neoplasm of colon Medical Ce nter (procedure) [code = 405567546] Future Scheduled 1976 Sigmoidoscopy [facility]code = [facility] S[facility]oidoscopy] Medical Cente r Future Scheduled 1976 CT Colonography (combo) [facility] 00:00:00 [code = CT Colonography [facility] (combo)] Future Scheduled 1976 Screening for malignant [facility] 00:00:00 neoplasm of colon Medical Ce nter (procedure) [code = 991701730] Future Scheduled 1976 Screening for malignant [facility] 00:00:00 neoplasm of colon Medical Ce nter (procedure) [code = 608939608] Future Scheduled 1976 Screening for malignant [facility] 00:00:00 neoplasm of colon Medical Ce nter (procedure) [code = 182602251] Future Scheduled 1976 Screening for malignant [facility] 00:00:00 neoplasm of colon Medical Ce nter (procedure) [code = 773310068] Future Scheduled 1976 Sigmoidoscopy [code = [facility] S[facility]oidoscopy] Medical Petrae r Future Scheduled 1976 CT Colonography (combo) [facility] 00:00:00 [code = CT Colonography Medi wale Center (combo)] Future Scheduled 1976 Screening for malignant [facility] 00:00:00 neoplasm of colon Medical Ce nter (procedure) [code = 108689608] Future Scheduled 1976 Screening for malignant [facility] 00:00:00 neoplasm of colon Medical Ce nter (procedure) [code = 089698821] Future Scheduled 1976 Screening for malignant [facility] 00:00:00 neoplasm of colon Medical Ce nter (procedure) [code = 008296584] Future Scheduled 1976 Screening for malignant [facility] 00:00:00 neoplasm of colon Medical Ce nter (procedure) [code = 034933969] Future Scheduled 1976 Sigmoidoscopy [facility]code = [facility] S[facility]oidoscopy] Medical Petrae r Future Scheduled 1976 CT Colonography (combo) [facility] 00:00:00 [code = CT Colonography [facility]ale Center (combo)] Future Scheduled 1976 Screening for malignant [facility] 00:00:00 neoplasm of colon Medical Ce nter (procedure) [code = 376870324] Future Scheduled 1976 Screening for malignant [facility] 00:00:00 neoplasm of colon Medical Ce nter (procedure) [code = 813478724] Future Scheduled 1976 Screening for malignant [facility] 00:00:00 neoplasm of colon Medical Ce nter (procedure) [code = 447923143] Future Scheduled 1976 Screening for malignant [facility] 00:00:00 neoplasm of colon Medical Ce nter (procedure) [code = 502965604] Future Scheduled 1976 Sigmoidoscopy [facility]code = [facility] S[facility]oidoscopy] Medical Petrae r Future Scheduled 1976 CT Colonography (combo) [facility] 00:00:00 [code = CT Colonography Medi wale Center (combo)] Future Scheduled 1976 Screening for malignant [facility] 00:00:00 neoplasm of colon Medical Ce nter (procedure) [code = 186261079] Future Scheduled 1976 Screening for malignant [facility] 00:00:00 neoplasm of colon Medical Ce nter (procedure) [code = 822938168] Future Scheduled 1976 Screening for malignant [facility] 00:00:00 neoplasm of colon Medical Ce nter (procedure) [code = 163449450] Future Scheduled 1976 Screening for malignant [facility] 00:00:00 neoplasm of colon Medical Ce nter (procedure) [code = 310215766] Future Scheduled 1976 Sigmoidoscopy [facility]oscopy] Medical Cente r Encounters Start End Encounter Admission Attending Care Care Encounter Source Date/Time Date/Time Type Type Clinicians Facility Department ID 2022-11-07 Inpatient ER MIR ARITA [facility] [id number] [facility] 19:39:43 2022-11-06 Inpatient ER JUJU TAI SLE [facility] [id number] [facility] 11:21:11 2022-11-06 Inpatient ER JUJU TAI SLE [facility] [id number] [facility] 10:39:32 2022-11-05 Inpatient ER JUJU TAI SLE SLE [id number] SLE[facility] 13:31:19 2022-11-03 Inpatient ER JUJU TAI SLE [facility] [id number] SLEH 10:45:25 2022-11-01 Inpatient ER SLEH SLE [id number] SLEH 09:28:17 2022-11-01 Inpatient ER SLEH SLE [id number] SLE[facility] 09:11:47 2022-10-31 Inpatient ER KATELYN SLE SLE [id number] SLE[facility] 00:51:03 KATHY 2022-10-31 Inpatient ER BERGREGORIAAD, SLE SLE [id number] SLEH 00:50:54 KATHY 2022-10-30 Inpatient ER SLE SLE [id number] SLEH 15:54:13 2022-10-30 Inpatient ER BERSHAD, SLE SLE [id number] SLEH 09:14:25 KATHY 2022-10-30 Inpatient ER BERSHAHEED, SLEH SLEH [id number] [facility] 05:26:11 [facility] 2022-10-29 Inpatient ER KATELYN [facility] [id number] SLE 17:09:25 [facility] 2022-10-29 Inpatient ER GOSIA [facility] [id number] [facility] 03:50:03 MURRAY 2023-01-31 2023-01-31 Outpatient [facility] [id number] Martin 15:10:33 15:10:33 1116 F [place] 2023-01-29 2023-01-29 Robby Wang [facility] 1.2.840.114 [id number] Univers 00:00:00 00:00:00 (Out) Cardiology HEALTH 350.1.13.10 ity of - [place] [id number] [facility] [address] OFFICE BUILDING 2023-01-24 2023-01-24 Orders Doctor YAIMA 1.2.840.114 [id number] Univers 00:00:00 00:00:00 Only Unassigned, VLAD 350.1.13.10 ity of [place] [facility] 4.2.7.2.686 Anthony as [id number] [facility] [address] 2023-01-22 2023-01-22 Outpatient [facility] [id number] Martin 08:26:51 08:26:51 1107 F [place] 2022-12-27 2022-12-27 Outpatient [facility] [id number] Martin 10:33:43 10:33:43 1012 F [place] 2022-11-29 2022-11-29 Transition MONSE Sotelo 1.2.840.114 [id number] Univers 00:00:00 00:00:00 of Care Desi REDDY 350.1.13.10 [place] [id number] [facility] [address] 2022-11-24 2022-11-28 Hospital NicoZohaib Mcduffie 1.2.840.114 [id number] Univers 11:15:00 21:45:00 Encounter Ryne Yoder VLAD 350.1.13.1 0 ity of [place], [place] [facility] 4.2.7.2.686 [place] [id number] [place] [address] [address] 2022-11-24 2022-11-28 Inpatient U [facility] [id number] Univers 11:15:00 21:45:00 [facility] 2022-[facility]-24 2022-11-28 Inpatient U [facility] [id number] Univers 11:15:00 21:45:00 [facility] 2022-10-29 2022-11-13 [facility] ER Santiago Whitesidemartin [facility] [id number] [facility] 02:56:00 21:30:00 Kathy Espinosa, Juju Zapata, Amanda Arita, Mir Meeks [facility] [place] 2022-10-29 2022-11-13 Inpatient ER [facility] [id number] SLE[facility] 02:56:00 21:30:00 [facility] 2022-11-06 2022-11-06 Inpatient ER SLE SLE [id number] SLEH 08:32:27 00:00:00 2022-11-06 2022-11-06 [facility] [id number] 00:00:00 00:00:[address] [facility] 2022-11-05 2022-11-05 Outpatient SLE SLE [id number] SLEH 00:00:00 00:00:00 2022-11-05 2022-11-05 Outpatient SLEH [facility] [id number] SLEH 00:00:00 00:00:00 2022-11-02 2022-11-02 Inpatient ER TAIJUJU BERNAL [facility] [id number] SLEH 10:58:08 00:00:00 2022-10-29 2022-10-[address] [facility] [id number] SLEH 10:12:32 23:59:00 MURRAY 2022-10-29 2022-10-29 [facility] Murray Elise [facility] [id number] [facility] 09:35:00 23:59:[address] [facility] 2022-10-29 2022-10-29 Inpatient ER PITTARD, SLE SLE [id number] SLEH 10:12:49 00:00:00 MURRAY 2022-10-29 2022-10-29 Inpatient ER PITTARD, SLE SLE [id number] SLE 10:12:41 00:00:00 MURRAY 2022-10-29 2022-10-29 Orders [facility] [id number] 00:00:00 00:00:[address] [facility] 2022-08-12 2022-08-12 Telephone Jenkins [facility] [id number] 00:00:00 00:00:00 [facility] 2022-08-05 2022-08-11 Inpatient ER [facility] Gynecology [id number] SLE 18:09:00 14:47:00 [facility] 2022-08-05 2022-08-11 Hospital ER SoniaPopeye Adams In [facility] [id number] 18:09:00 14:47:00 Encounter Aida Alcala [facility] 2022-08-05 2022-08-05 Travel [facility] [id number] [facility] 00:00:00 00:00:00 [facility] 2022-07-31 2022-08-03 [facility] General Med [id number] SLE 04:37:00 20:00:00 [facility] 2022-07-31 2022-08-03 Hospital UR Ashly Allindsay [facility] [id number] 04:37:00 20:00:00 Encounter Nena Waller [facility] Leonid Harris [place] 2022-07-30 2022-07-31 Inpatient ER CRISTIAN, [facility] Gynecology [id number] [facility]SL 14:07:00 04:04:00 DAYRON 2022-07-30 2022-07-31 Hospital ER Cristian, [facility] [id number] 14:07:00 04:04:00 Encounter Dayron vitale [facility] 2022-07-31 2022-07-31 Orders [facility] [id number] 00:00:00 00:00:[address] [facility] 2022-07-30 2022-07-30 Travel [facility] [id number] [facility] 00:00:00 00:00:00 [facility] Results Test Description Test Time Test Comments Results Result Comments Source HEPATIC FUNCTION PANEL (18183) (ALB,T.PRO,BILI 2022-11-26 13 :08:17 T,BU/BC,ALT,AST,ALK PHOS) Test Item Value Reference Range Interpretation Comme nts TOTAL BILI (test code = 9687475937) 0.9 mg/dL 0.1-1.1 BILI UNCON (test code = 0403679037) 0.6 mg/dL 0.1-1.1 BILI CONJ (test code = 1190249066) 0.0 mg/dL 0.0-0.3 T PROTEIN (test code = 6026942558) 6.5 g/dL 6.3-8.2 ALBUMIN (test code = 9980589443) 4.0 g/dL 3.5-5.0 ALK PHOS (test code = 6763219019) 527 U/L 34-122 H ALTv (test code = 1742-6) 116 U/L 5-35 H AST(SGOT) (test code = 6402036488) 76 U/L 13-40 H Lab Interpretation (test code = 53585-3) [facility]normal [facility] 10:08:01 Test Item Value Reference Range Interpretation Comments MAGNESIUM (test code = 5357292776) 1.8 mg/dL 1.7-2.4 Lab Interpretation (test code = Normal 04396-0) [facility] (NA, K, CL, CO2, GLUCOSE, BUN, CREATININE, CA)2022-11-26 10:08:01 Test Item Value Reference Range Interpretation Comments NA (test code = 136 mmol/L 135-145 8512537398) K (test code = 4.1 mmol/L 3.5-5.0 0355561251) CL (test code = 100 mmol/L 98-108 5475777012) CO2 TOTAL (test code 28 mmol/L 23-31 = 8489916104) AGAP (test code = 8 2-16 2239048024) BUN (test code = 17 mg/dL 7-23 7200393618) GLUCOSE (test code = 87 mg/dL 70-110 2481079082) CREATININE (test code 1.00 mg/dL 0.50-1.04 = 8630331031) CALCIUM (test code = 9.3 mg/dL 8.6-10.6 8658136902) eGFR (test code = 59.7 mL/min/1.73m2 4536019245) SUE (test code = SUE) Association of [...] or urine or abnormalities in imaging tests). [facility] WITH [id number] 09:36:22 Test Item Value Reference Range Interpretation [...] RDW-SD (test code = 42.7 fL 39.0-49.9 22808-9) RDW-CV (test code = 12.5 % 12.0-15.5 788-0) PLT (test code = 151 See_Comment L [Automated 777-3) message] The sy stem which generated this result transmitted reference range : 166 - 358 10*3/ ?L. The reference r elizabeth was not used to interpret this result as normal/abnormal . MPV (test code = 9.4 fL 9.5-12.9 L 28069-2) NRBC/100 WBC (test 0.0 See_Comment [Automat ed code = 6308405623) message] The system which generated this result transmitted reference range : 0.0 - 10.0 /100 WBCs. The refer ence range was not u sed to interpret th is result as normal/abnormal . NRBC x10^3 (test code See_Comment [Auto mated = 7968551977) message] The s ystem which generated this result transmitted reference range : 10*3/?L. The reference range was not used to interpret this result as normal/abnormal . GRAN MAT (NEUT) % 68.0 % (test code = 770-8) IMM GRAN % (test code 0.00 % = 3878878076) LYMPH % (test code = 17.7 % 736-9) MONO % (test code = 9.1 % 5905-5) EOS % (test code = 4.5 % 713-8) BASO % (test code = 0.7 % 706-2) GRAN MAT x10^3(ANC) 2.84 10*3/uL 1.88-7.09 (test code = 8548706400) IMM GRAN x10^3 (test 0.00-0.06 code = 4740976096) LYMPH x10^3 (test code 0.74 10*3/uL 1.32-3.29 L = 731-0) MONO x10^3 (test code 0.38 10*3/uL 0.33-0.92 = 742-7) EOS x10^3 (test code = 0.19 10*3/uL 0.03-0.39 711-2) BASO x10^3 (test code 0.03 10*3/uL 0.01-0.07 = 704-7) Lab Interpretation Abnormal (test code = 56304-0) [facility] METABOLIC PANEL (NA, K, CL, CO2, GLUCOSE, BUN, CREATININE, CA)2022-11-25 09:47:18 Test Item Value Reference Range Interpretation Comments NA (test code = 135 mmol/L 135-145 3974099558) K (test code = 5.0 mmol/L 3.5-5.0 Slight 2579431894) hemolysis CL (test code = 100 mmol/L 98-108 5487719217) CO2 TOTAL (test code 28 mmol/L 23-31 = 4327338128) AGAP (test code = 7 2-16 0089695545) BUN (test code = 20 mg/dL 7-23 Slight 5373315489) hemolysis GLUCOSE (test code = 109 mg/dL 70-110 6059025894) CREATININE (test code 1.20 mg/dL 0.50-1.04 H = 9713246966) CALCIUM (test code = 9.2 mg/dL 8.6-10.6 1778038778) eGFR (test code = 48.4 mL/min/1.73m2 6061202519) SUE (test code = SUE) Association of [...] tests). Lab Interpretation Abnormal (test code = 06875-0) [facility] 09:42:55 Test Item Value Reference Range Interpretation Comments MAGNESIUM (test code = 9066018066) 3.1 mg/dL 1.7-2.4 H Lab Interpretation (test code = Abnormal 03527-4) [facility] CenterHEPAT[facility]IS A VIRUS ANTIBODY [id number] 23:52:42 Test Item Value Reference Range Interpretation Comments HAVM 0.05 Semi-Quantitative (test code = 30660-0) SUE (test code = HAVAb IgM Interpretative SUE) Information: Reactive greater than or equal to 1.2 Biotin has been reported to cause a negative bias, interpret results relative to patient's use of biotin. [facility] CenterTROP[facility]IN [id number] 23:35:43 Test Item Value Reference Range Interpretation Comments TROPONIN I (test code = 0.911 ng/mL <=0.034 H 8978627460) SUE (test code = SUE) Reference (Normal) [...] biotin. Lab Interpretation Abnormal (test code = 87322-6) [facility] CenterHI 1/2 AG-AB WITH [id number] 21:57:58 Test Item Value Reference Range Interpretation Comments HIV 0.12 Negative Semi-quantitative (test code = 31949-8) SUE (test code = Non-reactive for HIV-1 SUE) antigen and HIV-1/HIV-2 antibodies. ?No laboratory evidence of HIV infection. ?Repeat in 2-4 weeks if acute HIV infection is suspected. [facility] CenterHCV [id number] 21:57:58 Test Item Value Reference Range Interpretation Comments HCV Ab (test code = 04518-9) Negative HCV Semi-Quantitative (test code = 0.01 48817-1) [facility] CenterHEPAT[facility]IS B SURFACE [id number] 21:57:58 Test Item Value Reference Range Interpretation Comments HBsAB (test code = Negative 6564434904) HBsAb 0.00 mIU/mL Semi-Quantitative (test code = 3736054833) SUE (test code = Interpretation: SUE) ?Hepatitis B Surface Antibody ? Negative - Patient is considered to be not immune to infection with HBV. ? ? Positive - Anti-HBs detected at greater than or equal to 12 mIU/mL. ?Patient is considered to be immune to infection with HBV. ? [facility] [id number] 21:40:35 Test Item Value Reference Range Interpretation Comments HBsAg Semi-Quantitative (test code = 0.14 Negative 5195-3) [facility] CenterGLYCOSYLATED HEMOGLOBIN (A1C)2022-11-24 18:18:35 Test Item Value Reference Range Interpretation Comments HGB A1C (test code = 4.6 % 4.0-5.7 4548-4) SUE (test code = SUE) Reference RangesNormal: <5.7%Prediabetes: 5.7 - 6.4%Diabetes: > 6.5% Lab Interpretation (test Normal code = 55903-8) [facility] CenterTHYROID STIMULATING [id number] 17:58:24 Test Item Value Reference Range Interpretation Comments TSH (test code = 2.03 See_Comment [Automated message] 5374009980) The system to-BBB generated this result transmitted ref erence range: 0.45 - 4 .70 mIU/L. The refe rence range was not u sed to interpret this result as normal/abnor mal. Lab Interpretation (test Normal code = 08026-8) [facility] CenterTROPONIN [id number] 17:39:48 Test Item Value Reference Range Interpretation Comments TROPONIN I (test code = 1.340 ng/mL <=0.034 H 3506422085) SUE (test code = SUE) Reference (Normal) [...] biotin. Lab Interpretation Abnormal (test code = 90565-6) [facility] CenterN-TERMINAL [id number] 17:39:48 Test Item Value Reference Range Interpretation Comments NT-proBNP (test code = 2520 pg/mL <=125 H 18501-5) SUE (test code = SUE) Positive: Heart Failure Likely Lab Interpretation (test Abnormal code = 44400-0) [facility] METABOLIC PANEL (NA, K, CL, CO2, GLUCOSE, BUN, CREATININE, CA)2022-11-24 17:30:04 Test Item Value Reference Range Interpretation Comments NA (test code = 135 mmol/L 135-145 4750322728) K (test code = 3.9 mmol/L 3.5-5.0 1095449651) CL (test code = 97 mmol/L 98-108 L 2475493383) CO2 TOTAL (test code = 27 mmol/L 23-31 5820080572) AGAP (test code = 11 2-16 9350896131) BUN (test code = 23 mg/dL 7-23 1514596481) GLUCOSE (test code = 163 mg/dL 70-110 H 3735657579) CREATININE (test code = 1.40 mg/dL 0.50-1.04 H 5340261079) CALCIUM (test code = 9.4 mg/dL 8.6-10.6 9646919390) eGFR (test code = 40.5 mL/min/1.73m2 1149990972) SUE (test code = USE) Association of Glomerular Filtration Rate (GFR) and [...] tests). Lab Interpretation Abnormal (test code = 53883-6) [facility] CenterHEPATIC FUNCTION PANEL (69491) (ALB,T.PRO,BILI T,BU/BC,ALT,AST,ALK PHOS)2022-11-24 17:30:04 Test Item Value Reference Range Interpretation Comments TOTAL BILI (test code = 8284080455) 1.0 mg/dL 0.1-1.1 BILI UNCON (test code = 0218921938) 0.6 mg/dL 0.1-1.1 BILI CONJ (test code = 1840900712) 0.0 mg/dL 0.0-0.3 T PROTEIN (test code = 9863845333) 6.8 g/dL 6.3-8.2 ALBUMIN (test code = 5232377700) 4.1 g/dL 3.5-5.0 ALK PHOS (test code = 9519934945) 746 U/L 34-122 H ALTv (test code = 1742-6) 183 U/L 5-35 H AST(SGOT) (test code = 9269951749) 196 U/L 13-40 H Lab Interpretation (test code = Abnormal 23198-9) [facility] CenterLIPID PANEL (52630)(TOTAL CHOLESTEROL, TRIGLYCERIDES, HDL)2022-11-24 17:30:04 Test Item Value Reference Range Interpretation Comments CHOL (test code = 6266012071) 113 mg/dL 120-200 L HDL (test code = 2940746880) 62 mg/dL >=50 HDLC RATIO (test code = 2998194299) 1.8 <=4.5 TRIG (test code = 5775942908) 71 mg/dL 30-170 LDL CHOL (test code = 91276-6) 37 mg/dL <=160 VLDL (test code = 2532631769) 14 mg/dL 5-60 Lab Interpretation (test code = Abnormal 07815-2) [facility] CenterCBC WITH [id number] 16:55:22 Test Item Value Reference Range Interpretation [...] RDW-SD (test code = 44.3 fL 39.0-49.9 47784-6) RDW-CV (test code = 12.9 % 12.0-15.5 788-0) PLT (test code = 203 See_Comment [Automated 777-3) message] The sy stem which generated this result transmitted reference range : 166 - 358 10*3/ ?L. The reference r elizabeth was not used to interpret this result as normal/abnormal . MPV (test code = 9.9 fL 9.5-12.9 08838-7) NRBC/100 WBC (test 0.0 See_Comment [Automat ed code = 3298442545) message] The system which generated this result transmitted reference range : 0.0 - 10.0 /100 WBCs. The refer ence range was not u sed to interpret th is result as normal/abnormal . NRBC x10^3 (test code See_Comment [Auto mated = 9762701331) message] The s ystem which generated this result transmitted reference range : 10*3/?L. The reference range was not used to interpret this result as normal/abnormal . GRAN MAT (NEUT) % 59.6 % (test code = 770-8) IMM GRAN % (test code 0.20 % = 7829933580) LYMPH % (test code = 28.3 % 736-9) MONO % (test code = 9.1 % 5905-5) EOS % (test code = 2.5 % 713-8) BASO % (test code = 0.3 % 706-2) GRAN MAT x10^3(ANC) 3.61 10*3/uL 1.88-7.09 (test code = 3014414757) IMM GRAN x10^3 (test 0.00-0.06 code = 1808201243) LYMPH x10^3 (test code 1.71 10*3/uL 1.32-3.29 = 731-0) MONO x10^3 (test code 0.55 10*3/uL 0.33-0.92 = 742-7) EOS x10^3 (test code = 0.15 10*3/uL 0.03-0.39 711-2) BASO x10^3 (test code 0.01-0.07 = 704-7) Lab Interpretation Abnormal (test code = 91568-6) [facility]-Glucose [id number] 12:43:54 Test Item Value Reference Range Interpretation Comments POC-Glucose Meter (test 138 mg/dL 70-110 H : TE STED AT [facility] code = 1538) [address] [place] [address], [facility] 30: Configuration Management Analyst/Techni smiley ID = [id number] for FERMIN MINOR [place] Lab Interpretation (test Abnormal code = 94856-1) [facility]-Glucose [id number] 12:43:54 Test Item Value Reference Range Interpretation Comments POC-Glucose Meter (test 138 mg/dL 70-110 H : TE STED AT [facility] code = 1538) [address] [place] [address], [facility] 30: Configuration Management Analyst/Techni smiley ID = [id number] for FERMIN MINOR [place] Lab Interpretation (test Abnormal code = 15544-3) [facility]-Glucose [id number] 12:43:54 Test Item Value Reference Range Interpretation Comments POC-Glucose Meter (test 138 mg/dL 70-110 H : TE STED AT [facility] code = 1538) [address] [facility], 770 30: Configuration Management Analyst/Techni smiley ID = [id number] for IVÁN FERMIN [place] Lab Interpretation (test Abnormal code = 77550-4) [facility]-Glucose [id number] 12:43:54 Test Item Value Reference Range Interpretation Comments POC-Glucose Meter (test 138 mg/dL 70-110 H : TE STED AT [facility] code = 1538) [address] [place] [address], 770 30: Configuration Management Analyst/Techni smiley ID = [id number] for IVÁN FERMIN [place] Lab Interpretation (test Abnormal code = 85645-6) [facility]-Glucose [id number] 12:43:54 Test Item Value Reference Range Interpretation Comments POC-Glucose Meter (test 138 mg/dL 70-110 H : TE STED AT [facility] code = 1538) [address] [place] [address], 770 30: Configuration Management Analyst/Techni smiley ID = [id number] for IVÁN FERMIN [place] Lab Interpretation (test Abnormal code = 81651-2) [facility]-Glucose [id number] 12:43:54 Test Item Value Reference Range Interpretation Comments POC-Glucose Meter (test 138 mg/dL 70-110 H : TE STED AT [facility] code = 1538) [address] [place] [address], 770 30: Configuration Management Analyst/Techni smiley ID = [id number] for IVÁN FERMIN [place] Lab Interpretation (test Abnormal code = 30457-8) [facility]-GLUCOSE [id number] 12:43:54 Test Item Value Reference Range Interpretation Comments POC-GLUCOSE METER 138 mg/dL 70-110 H : TESTED A T [facility] 6720 (BEAKER) (test code = BERTNE R [facility], 1538) [address]: Configuration Management Analyst/Techni smiley ID = [id number] for MANDA ESPARZA [id number] 06:54:19 Test Item Value Reference Range Interpretation Comments PHOSPHORUS (BEAKER) (test code = 4.2 mg/dL 2.3-4.7 604) Configuration Management Analyst ID - [id number] 06:54:18 Test Item Value Reference Range Interpretation Comments MAGNESIUM (BEAKER) (test code = 1.7 mg/dL 1.6-2.6 627) Configuration Management Analyst ID - ADMINCBC W/PLT COUNT & AUTO [id number] 06:00:54 Test Item Value Reference Range Interpretation [...] PERCENT (BEAKER) (test code = 2801) POCT-GLUCOSE [id number] 21:38:27 Test Item Value Reference Range Interpretation Comments POC-GLUCOSE METER 88 mg/dL 70-110 : TESTED A T [facility] 6720 (BEAKER) (test code = [facility], 1538) 23914: Configuration Management Analyst/Techni smiley ID = [id number] for NADEGE MORALES POCT-GLUCOSE [id number] 18:19:26 Test Item Value Reference Range Interpretation Comments POC-GLUCOSE METER 93 mg/dL 70-110 : TESTED A T [facility] 6720 (BEAKER) (test code = [facility], 1538) 045[address]: Configuration Management Analyst/Techni smiley ID = [id number] for NONA MARY ANN MANDA POCT-GLUCOSE [id number] 13:13:27 Test Item Value Reference Range Interpretation Comments POC-GLUCOSE METER 91 mg/dL 70-110 : TESTED A T [facility] 6720 (BEAKER) (test code = [facility], 1538) 28678: Configuration Management Analyst/Techni smiley ID = [id number] for NONA MARY ANN MANDA BLOOD [id number] 12:00:51 Test Item Value Reference Range Interpretation Comments CULTURE (BEAKER) (test No growth in 5 days code = 1095) BLOOD [id number] 12:00:51 Test Item Value Reference Range Interpretation Comments CULTURE (BEAKER) (test No growth in 5 days code = 1095) The specimen volume collected for this blood culture was below the optimum (10 mL per bottle or 20 mL total). Use of lower volumes may adversely affect recovery and/or detection times of some organisms.POCT-GLUCOSE [id number] 06:46:01 Test Item Value Reference Range Interpretation Comments POC-GLUCOSE METER 102 mg/dL 70-110 : TESTED A T [facility] 6720 (BEAKER) (test code = [facility], 1538) 28243: Configuration Management Analyst/Techni smiley ID = [id number] for Saul Teresa mancini [id number] 05:48:23 Test Item Value Reference Range Interpretation Comments MAGNESIUM (BEAKER) (test code = 1.8 mg/dL 1.6-2.6 627) Configuration Management Analyst ID - [id number] 05:48:23 Test Item Value Reference Range Interpretation Comments PHOSPHORUS (BEAKER) (test code = 3.6 mg/dL 2.3-4.7 604) Configuration Management Analyst ID - MARCOBASIC METABOLIC [id number] 05:48:22 Test Item Value Reference Range Interpretation [...] not appl icable for dialysis patien ts Configuration Management Analyst ID - MARCOCBC W/PLT COUNT & AUTO [id number] 05:10:47 Test Item Value Reference Range Interpretation [...] PERCENT (BEAKER) (test code = 2801) POCT-GLUCOSE [id number] 23:44:35 Test Item Value Reference Range Interpretation Comments POC-GLUCOSE METER 93 mg/dL 70-110 : TESTED A T [facility] 6720 (BEAKER) (test code = [facility], 1538) 14981: Configuration Management Analyst/Techni smiley ID = [id number] for Teresa Camejo POCT-GLUCOSE [id number] 17:35:54 Test Item Value Reference Range Interpretation Comments POC-GLUCOSE METER 108 mg/dL 70-110 : TESTED A T [facility] 6720 (BEAKER) (test code = [facility], 1538) 31777: Configuration Management Analyst/Techni smiley ID = [id number] for Donna Rolle BLOOD [id number] 17:01:46 Test Item Value Reference Range Interpretation Comments CULTURE (BEAKER) (test No growth in 5 days code = 1095) The specimen volume collected for this blood culture was below the optimum (10 mL per bottle or 20 mL total). Use of lower volumes may adversely affect recovery and/or detection times of some organisms.POCT-GLUCOSE [id number] 13:41:35 Test Item Value Reference Range Interpretation Comments POC-GLUCOSE METER 99 mg/dL 70-110 : TESTED A T [facility] 6720 (BEAKER) (test code = [facility], 1538) 46426: Configuration Management Analyst/Techni smiley ID = [id number] for Donna Baxter BLOOD [id number] 13:01:43 Test Item Value Reference Range Interpretation Comments CULTURE (BEAKER) (test No growth in 5 days code = 1095) POCT-GLUCOSE [id number] 07:21:17 Test Item Value Reference Range Interpretation Comments POC-GLUCOSE METER 110 mg/dL 70-110 : TESTED A T [facility] 6720 (BEAKER) (test code = [facility], 1538) 97503: Configuration Management Analyst/Techni smiley ID = [id number] for Teresa Rose BASIC METABOLIC [id number] 05:31:26 Test Item Value Reference Range Interpretation [...] not appl icable for dialysis patien ts Configuration Management Analyst ID - [id number] 05:31:26 Test Item Value Reference Range Interpretation Comments MAGNESIUM (BEAKER) (test code = 2.0 mg/dL 1.6-2.6 627) Configuration Management Analyst ID - [id number] 05:31:26 Test Item Value Reference Range Interpretation Comments PHOSPHORUS (BEAKER) (test code = 3.6 mg/dL 2.3-4.7 604) Configuration Management Analyst ID - MARCOCBC W/PLT COUNT & AUTO [id number] 04:56:52 Test Item Value Reference Range Interpretation [...] PERCENT (BEAKER) (test code = 2801) POCT-GLUCOSE [id number] 00:26:59 Test Item Value Reference Range Interpretation Comments POC-GLUCOSE METER 135 mg/dL 70-110 H : [facility] (BEAKER) (test code = [facility], 1538) 45068: Configuration Management Analyst/Techni smiley ID = [id number] for Teresa Rose POCT-GLUCOSE [id number] 17:22:27 Test Item Value Reference Range Interpretation Comments POC-GLUCOSE METER 127 mg/dL 70-110 H : TESTED A T [facility] 6720 (BEAKER) (test code = [facility], 1538) 94808: Configuration Management Analyst/Techni smiley ID = [id number] for Um eh, Madhuumbu POCT-GLUCOSE [id number] 17:20:21 Test Item Value Reference Range Interpretation Comments POC-GLUCOSE METER 23 mg/dL 70-110 LL : TESTED A T [facility] 6720 (BEAKER) (test code = [facility], 1538) 44188: Configuration Management Analyst/Techni smiley ID = [id number] for Umeh , Madhuumbu POCT-GLUCOSE [id number] 12:34:42 Test Item Value Reference Range Interpretation Comments POC-GLUCOSE METER 129 mg/dL 70-110 H : TESTED A T [facility] 6720 (BEAKER) (test code = [facility], 1538) 36128: Configuration Management Analyst/Techni smiley ID = [id number] for Um eh, Madhuumbu [id number] 08:08:41 Test Item Value Reference Range Interpretation Comments MAGNESIUM (BEAKER) (test code = 1.9 mg/dL 1.6-2.6 627) Configuration Management Analyst ID - [id number] 08:08:41 Test Item Value Reference Range Interpretation Comments PHOSPHORUS (BEAKER) (test code = 3.5 mg/dL 2.3-4.7 604) Configuration Management Analyst ID - ADMINBASIC METABOLIC [id number] 08:08:40 Test Item Value Reference Range Interpretation [...] not appl icable for dialysis patien ts Configuration Management Analyst ID - ADMINPOCT-GLUCOSE [id number] 07:08:26 Test Item Value Reference Range Interpretation Comments POC-GLUCOSE METER 119 mg/dL 70-110 H : TESTED A T [facility] 6720 (BEAKER) (test code = AVINASH Dunn [facility], 1538) 43117: Configuration Management Analyst/Techni smiley ID = [id number] for Saul addis Teresa CBC W/PLT COUNT & AUTO [id number] 06:25:01 Test Item Value Reference Range Interpretation [...] PERCENT (BEAKER) (test code = 2801) POCT-GLUCOSE [id number] 23:32:08 Test Item Value Reference Range Interpretation Comments POC-GLUCOSE METER 97 mg/dL 70-110 : TESTED A T [facility] 6720 (BEAKER) (test code = [facility], [facility]) 62531: Configuration Management Analyst/Techni smiley ID = [id number] for Teresa Camejo POCT-GLUCOSE [id number] 17:52:25 Test Item Value Reference Range Interpretation Comments POC-GLUCOSE METER 121 mg/dL 70-110 H : TESTED A T [facility] 6720 (BEAKER) (test code = [facility], 153) 03190: Configuration Management Analyst/Techni smiley ID = [id number] for An lance, Donna POCT-GLUCOSE [id number] 12:24:17 Test Item Value Reference Range Interpretation Comments POC-GLUCOSE METER 106 mg/dL 70-110 : TESTED A T [facility] 6720 (BEAKER) (test code = [facility], 153) 33204: Configuration Management Analyst/Techni smiley ID = [id number] for An Donna lucas VANCOMYCIN LEVEL, [id number] 10:00:44 Test Item Value Reference Range Interpretation Comments VANCOMYCIN TROUGH (BEAKER) (test 35.0 ug/mL 10.0-20.0 HH code = 522) Configuration Management Analyst ID - ADMINPOCT-GLUCOSE [id number] 06:04:34 Test Item Value Reference Range Interpretation Comments POC-GLUCOSE METER 98 mg/dL 70-110 : TESTED A T [facility] 6720 (BEAKER) (test code = [facility] [place], 1538) 38941: Configuration Management Analyst/Techni smiley ID = [id number] for Andi Warren [id number] 04:34:22 Test Item Value Reference Range Interpretation Comments PHOSPHORUS (BEAKER) (test code = 4.3 mg/dL 2.3-4.7 604) Configuration Management Analyst ID - mmBASIC METABOLIC [id number] 04:34:21 Test Item Value Reference Range Interpretation [...] as accur ate as Creatinine María Elena fieldsce in predicting glom erular filtration rate . Estimated GFR is not appl icable for dialysis patien ts Configuration Management Analyst ID - [id number] 04:34:21 Test Item Value Reference Range Interpretation Comments MAGNESIUM (BEAKER) (test code = 2.0 mg/dL 1.6-2.6 627) Configuration Management Analyst ID - mmCBC W/PLT COUNT & AUTO [id number] 04:15:17 Test Item Value Reference Range Interpretation [...] PERCENT (BEAKER) (test code = 2801) POCT-GLUCOSE [id number] 00:10:22 Test Item Value Reference Range Interpretation Comments POC-GLUCOSE METER 102 mg/dL 70-110 : TESTED Oscar T [facility] 6720 (BEAKER) (test [facility], = 1538) 99946: Configuration Management Analyst/Techni smiley ID = [id number] for Andi Warren BASIC METABOLIC [id number] 19:00:42 Test Item Value Reference Range Interpretation [...] not appl icable for dialysis patien ts Configuration Management Analyst ID - JSPOCT-GLUCOSE [id number] 17:28:38 Test Item Value Reference Range Interpretation Comments POC-GLUCOSE METER 122 mg/dL 70-110 H : TESTED A T [facility] 6720 (BEAKER) (test code = [facility], 1538) 94445: Configuration Management Analyst/Techni smiley ID = [id number] for An Candace lucasa POCT-GLUCOSE [id number] 12:36:44 Test Item Value Reference Range Interpretation Comments POC-GLUCOSE METER 110 mg/dL 70-110 : TESTED A T [facility] 6720 (BEAKER) (test code = [facility], 1538) 16828: Configuration Management Analyst/Techni smiley ID = [id number] for An Candace lucasa [id number] 06:20:37 Test Item Value Reference Range Interpretation Comments MAGNESIUM (BEAKER) (test code = 2.2 mg/dL 1.6-2.6 627) Configuration Management Analyst ID - [id number] 06:20:37 Test Item Value Reference Range Interpretation Comments PHOSPHORUS (BEAKER) (test code = 3.9 mg/dL 2.3-4.7 604) Configuration Management Analyst ID - ADMINBASIC METABOLIC [id number] 06:20:36 Test Item Value Reference Range Interpretation [...] not appl icable for dialysis patien ts Configuration Management Analyst ID - ADMINPOCT-GLUCOSE [id number] 06:09:53 Test Item Value Reference Range Interpretation Comments POC-GLUCOSE METER 69 mg/dL 70-110 L : TESTED A T [facility] 6720 (BEAKER) (test code = AVINASH Dunn [facility], 1538) 87603: Configuration Management Analyst/Techni smiley ID = [id number] for Andi Warren CBC W/PLT COUNT & AUTO [id number] 05:15:05 Test Item Value Reference Range Interpretation [...] = 2801) XR abdomen / KUB 1 [id number] 21:59:17EXAM/TECHNIQUE: XR ABDOMEN/KUB 1 VIEW PORTABLE INDICATION: Confirm corpak placement COMPARISON: 11/05/2022. FINDINGS: Feeding tube terminates in the distal stomach. No dilated loops of largesmall bowel.No acute osseous process. Lung bases are clear.[facility] XR ABDOMEN/KUB 1 VIEW [id number] 21:59:17 [facility] : 1975 Sex: FEXAM/TECHNIQUE: XR ABDOMEN/KUB 1 VIEW PORTABLEINDICATION: Confirm corpak placementCOMPARISON: 11/05/2022.FINDINGS: Feeding tube terminates in the distal stomach. No dilated loops of largesmall bowel. No acute osseous process. Lung bases are clear.IMPRESSION:Feeding tube terminates in the distal stomach.Electronically Signed By: Carlos Preciado11/07/2022 22:01 CDTWorkstation Name: [id number] METABOLIC [id number] 18:29:04 Test Item Value Reference Range Interpretation [...] not appl icable for dialysis patien ts Configuration Management Analyst ID - BSDrug screen, urine, byrbpjonrmqir1092-33-33 08:47:31 Test Item Value Reference Range Interpretation Comments Scan Result (test see scanned report See scanned report. code = [id number]) SUE (test code = see scanned report SUE) [facility], urine, chpwmajjlppch4215-02-92 08:47:31 Test Item Value Reference Range Interpretation Comments Scan Result (test see scanned report See scanned report. code = [id number]) SUE (test code = see scanned report SUE) [facility], [facility], [id number] 08:47:31 Test Item Value Reference Range Interpretation Comments Scan Result (test see scanned report See scanned report. code = 3105869) SUE (test code = see scanned report SUE) [facility], [id number] 08:47:31 Test Item Value Reference Range Interpretation Comments Scan Result (test see scanned report See scanned report. code = 2112016) SUE (test code = see scanned report SUE) [facility], [id number] 08:47:31 Test Item Value Reference Range Interpretation Comments Scan Result (test see scanned report See scanned report. code = 8192867) SUE (test code = see scanned report SUE) [facility], [id number] 08:47:31 Test Item Value Reference Range Interpretation Comments Scan Result (test see scanned report See scanned report. code = 2052091) SUE (test code = see scanned report SUE) [facility], URINE, [id number] 08:47:31 Test Item Value Reference Range Interpretation Comments SCAN RESULT (test see scanned report See scanned report. code = 4781394) see scanned reportPOCT-GLUCOSE [id number] 06:13:13 Test Item Value Reference Range Interpretation Comments POC-GLUCOSE METER 81 mg/dL 70-110 : TESTED A T [facility] 6720 (BEAKER) (test code = AVINASH ISLAS MS, 1538) [address]681: Configuration Management Analyst/Techni smiley ID = [id number] for Theresa lydia Jessica [id number] 04:03:55 Test Item Value Reference Range Interpretation Comments PHOSPHORUS (BEAKER) (test code = 4.8 mg/dL 2.3-4.7 H 604) Configuration Management Analyst ID - EMBASIC METABOLIC [id number] 04:03:54 Test Item Value Reference Range Interpretation [...] not appl icable for dialysis patien ts Configuration Management Analyst ID - [id number] 04:03:54 Test Item Value Reference Range Interpretation Comments MAGNESIUM (BEAKER) (test code = 2.4 mg/dL 1.6-2.6 627) Configuration Management Analyst ID - EMHIGH SENSITIVITY TROPONIN [id number] 03:58:57 Test Item Value Reference Range Interpretation Comments HIGH SENSITIVITY 165 pg/ml See_Comment H [Automated message] TROPONIN I (test code The sy stem which = [id number]) generated this result transmitted ref erence range: <=17. Th e reference range was not used to int erpret this result as normal/abnormal . Configuration Management Analyst ID - EMThe CONCRETE WORKER STAT High Sensitivity Troponin-I results should be used in conjunctionwith other diagnostic information such as ECG, clinical observations and information, and patient symptoms to aid in the diagnosis of TX.CBC W/PLT COUNT & AUTO [id number] 03:38:52 Test Item Value Reference Range Interpretation [...] PERCENT (BEAKER) (test code = 2801) POCT-GLUCOSE [id number] 00:25:14 Test Item Value Reference Range Interpretation Comments POC-GLUCOSE METER 88 mg/dL 70-110 : [facility] ([facility]AKER) (test code = AVINASH ISLAS MS, 1538) 58579: Configuration Management Analyst/Techni smiley ID = [id number] for Jessica Rodrigues HIGH SENSITIVITY TROPONIN [id number] 22:04:24 Test Item Value Reference Range Interpretation Comments HIGH SENSITIVITY 193 pg/ml See_Comment H [Automated message] TROPONIN I (test code The sy stem which = [id number]) generated this result transmitted ref erence range: <=17. Th e reference range was not used to int erpret this result as normal/abnormal . Configuration Management Analyst ID - DBThe CONCRETE WORKER STAT High Sensitivity Troponin-I results should be used in conjunctionwith other diagnostic information such as ECG, clinical observations and information, and patient symptoms to aid in the diagnosis of TX.Urinalysis w/Microscopic + Reflex to [id number] 15:49:18 Test Item Value Reference Range Interpretation Comments Color, UA (test code Yellow = 5778-6) Clarity, UA (test Cloudy code = 5767-9) Specific Victor, UA 1.021 1.001-1.035 (test code = 5811-5) pH, UA (test code = 6.0 5.0-8.0 5803-2) Protein, UA (test 70 mg/dL Negative A code = 53705-2) Glucose, UA (test Negative Negative code = 365) Ketones, UA (test Negative Negative code = 2514-8) Bilirubin, UA (test Negative Negative code = 27754-3) Blood, UA (test code Moderate Negative A = 28423-0) Nitrite, UA (test Negative Negative code = 5802-4) Leukocytes, UA (test Trace Negative A code = 5799-2) Urobilinogen, UA 0.2 0.2-1.0 (test code = 57068-5) RBC, UA (test code = 23 See_Comment [Autom ated 50221-3) message] The system which generated this result [...] 6 See_Comment [Automate d (test code = 96499-4) messag e] The system which generated this result transmit markie reference range : /HPF. The reference range was not used to interpret this result as normal/abnormal . Hyaline Casts, UA 1 See_Comment [Automate d (test code = 49822-5) messag e] The system which generated this result transmit markie reference range : /LPF. The reference range was not used to interpret this result as normal/abnormal . Specimen Source (test code = 2795) SUE (test code = SUE) Configuration Management Analyst ID - [auto]Configuration Management Analyst ID - bs Lab Interpretation Abnormal (test code = 88292-7) [facility] + Reflex to Culture 2022-11-06 15:49:18 Test Item Value Reference Range Interpretation Comments Color, UA (test code Yellow = 5778-6) Clarity, UA (test Cloudy code = 5767-9) Specific Victor, UA 1.021 1.001-1.035 (test code = 5811-5) pH, UA (test code = 6.0 5.0-8.0 5803-2) Protein, UA (test 70 mg/dL Negative A code = 81641-0) Glucose, UA (test Negative Negative code = 365) Ketones, UA (test Negative Negative code = 2514-8) Bilirubin, UA (test Negative Negative code = 45519-6) Blood, UA (test code Moderate Negative A = 50711-5) Nitrite, UA (test Negative Negative code = 5802-4) Leukocytes, UA (test Trace Negative A code = 5799-2) Urobilinogen, UA 0.2 0.2-1.0 (test code = 86588-4) RBC, UA (test code = 23 See_Comment [Autom ated 66455-1) message] The system which generated this result [...] 6 See_Comment [Automate d (test code = 02881-7) messag e] The system which generated this result transmit markie reference range : /HPF. The reference range was not used to interpret this result as normal/abnormal . Hyaline Casts, UA 1 See_Comment [Automate d (test code = 60353-0) messag e] The system which generated this result transmit markie reference range : /LPF. The reference range was not used to interpret this result as normal/abnormal . Specimen Source (test code = 2795) SUE (test code = SUE) Configuration Management Analyst ID - [auto]Configuration Management Analyst ID - bs Lab Interpretation Abnormal (test code = 05789-6) [facility] Reflex to Culture 2022-11-06 15:49:18 Test Item Value Reference Range Interpretation Comments Color, UA (test code Yellow = 5778-6) Clarity, UA (test Cloudy code = 5767-9) Specific Victor, UA 1.021 1.001-1.035 (test code = 5811-5) pH, UA (test code = 6.0 5.0-8.0 5803-2) Protein, UA (test 70 mg/dL Negative A code = 61419-0) Glucose, UA (test Negative Negative code = 365) Ketones, UA (test Negative Negative code = 2514-8) Bilirubin, UA (test Negative Negative code = 70247-4) Blood, UA (test code Moderate Negative A = 92320-0) Nitrite, UA (test Negative Negative code = 5802-4) Leukocytes, UA (test Trace Negative A code = 5799-2) Urobilinogen, UA 0.2 0.2-1.0 (test code = 16934-5) RBC, UA (test code = 23 See_Comment [Autom ated 50742-1) message] The system which generated this result [...] 6 See_Comment [Automate d (test code = 60026-4) messag e] The system which generated this result transmit markie reference range : /HPF. The reference range was not used to interpret this result as normal/abnormal . Hyaline Casts, UA 1 See_Comment [Automate d (test code = 57513-3) messag e] The system which generated this result transmit markie reference range : /LPF. The reference range was not used to interpret this result as normal/abnormal . Specimen Source (test code = 2795) SUE (test code = SUE) Configuration Management Analyst ID - [auto]Configuration Management Analyst ID - bs Lab Interpretation Abnormal (test code = 82290-3) [facility] Reflex to Culture 2022-11-06 15:49:18 Test Item Value Reference Range Interpretation Comments Color, UA (test code Yellow = 5778-6) Clarity, UA (test Cloudy code = 5767-9) Specific Victor, UA 1.021 1.001-1.035 (test code = 5811-5) pH, UA (test code = 6.0 5.0-8.0 5803-2) Protein, UA (test 70 mg/dL Negative A code = 06277-8) Glucose, UA (test Negative Negative code = 365) Ketones, UA (test Negative Negative code = 2514-8) Bilirubin, UA (test Negative Negative code = 00590-5) Blood, UA (test code Moderate Negative A = 62099-2) Nitrite, UA (test Negative Negative code = 5802-4) Leukocytes, UA (test Trace Negative A code = 5799-2) Urobilinogen, UA 0.2 0.2-1.0 (test code = 76023-1) RBC, UA (test code = 23 See_Comment [Autom ated 37555-3) message] The system which generated this result [...] 6 See_Comment [Automate d (test code = 57378-0) messag e] The system which generated this result transmit markie reference range : /HPF. The reference range was not used to interpret this result as normal/abnormal . Hyaline Casts, UA 1 See_Comment [Automate d (test code = 51080-4) messag e] The system which generated this result transmit markie reference range : /LPF. The reference range was not used to interpret this result as normal/abnormal . Specimen Source (test code = 2795) SUE (test code = SUE) Configuration Management Analyst ID - [auto]Configuration Management Analyst ID - bs Lab Interpretation Abnormal (test code = 05517-6) [facility] + Reflex to Culture 2022-11-06 15:49:18 Test Item Value Reference Range Interpretation Comments Color, UA (test code Yellow = 5778-6) Clarity, UA (test Cloudy code = 5767-9) Specific Victor, UA 1.021 1.001-1.035 (test code = 5811-5) pH, UA (test code = 6.0 5.0-8.0 5803-2) Protein, UA (test 70 mg/dL Negative A code = 90448-4) Glucose, UA (test Negative Negative code = 365) Ketones, UA (test Negative Negative code = 2514-8) Bilirubin, UA (test Negative Negative code = 95369-8) Blood, UA (test code Moderate Negative A = 83171-5) Nitrite, UA (test Negative Negative code = 5802-4) Leukocytes, UA (test Trace Negative A code = 5799-2) Urobilinogen, UA 0.2 0.2-1.0 (test code = 22171-7) RBC, UA (test code = 23 See_Comment [Autom ated 28314-0) message] The system which generated this result [...] 6 See_Comment [Automate d (test code = 01154-1) messag e] The system which generated this result transmit markie reference range : /HPF. The reference range was not used to interpret this result as normal/abnormal . Hyaline Casts, UA 1 See_Comment [Automate d (test code = 35775-3) messag e] The system which generated this result transmit markie reference range : /LPF. The reference range was not used to interpret this result as normal/abnormal . Specimen Source (test code = 2795) SUE (test code = SUE) Configuration Management Analyst ID - [auto]Configuration Management Analyst ID - bs Lab Interpretation Abnormal (test code = 63411-8) [facility] Reflex to Culture 2022-11-06 15:49:18 Test Item Value Reference Range Interpretation Comments Color, UA (test code Yellow = 5778-6) Clarity, UA (test Cloudy code = 5767-9) Specific Victor, UA 1.021 1.001-1.035 (test code = 5811-5) pH, UA (test code = 6.0 5.0-8.0 5803-2) Protein, UA (test 70 mg/dL Negative A code = 65423-7) Glucose, UA (test Negative Negative code = 365) Ketones, UA (test Negative Negative code = 2514-8) Bilirubin, UA (test Negative Negative code = 39405-7) Blood, UA (test code Moderate Negative A = 80042-0) Nitrite, UA (test Negative Negative code = 5802-4) Leukocytes, UA (test Trace Negative A code = 5799-2) Urobilinogen, UA 0.2 0.2-1.0 (test code = 46994-5) RBC, UA (test code = 23 See_Comment [Autom ated 46192-4) message] The system which generated this result [...] 6 See_Comment [Automate d (test code = 68276-1) messag e] The system which generated this result transmit markie reference range : /HPF. The reference range was not used to interpret this result as normal/abnormal . Hyaline Casts, UA 1 See_Comment [Automate d (test code = 18255-3) messag e] The system which generated this result transmit markie reference range : /LPF. The reference range was not used to interpret this result as normal/abnormal . Specimen Source (test code = 2795) SUE (test code = SUE) Configuration Management Analyst ID - [auto]Configuration Management Analyst ID - bs Lab Interpretation Abnormal (test code = 81525-1) [facility]LEX URINE [id number] 15:49:18 Test Item Value Reference Range Interpretation [...] /LPF 514) SOURCE(BEAKER) (test code = 2795) Configuration Management Analyst ID - [auto]Configuration Management Analyst ID - bsPT/ONZO9654-36-52 15:35:00 Test Item Value Reference Range Interpretation [...] patients with mechanical heart valves.HIGH SENSITIVITY TROPONIN [id number] 15:30:15 Test Item Value Reference Range Interpretation Comments HIGH SENSITIVITY 264 pg/ml See_Comment H [Automated message] TROPONIN I (test code The sy stem which = 9291776) generated this result transmitted ref erence range: <=17. Th e reference range was not used to int erpret this result as normal/abnormal . Configuration Management Analyst ID - ADMINThe CONCRETE WORKER STAT High Sensitivity Troponin-I results should be used in conjunction with other diagnostic information such as ECG, clinical observations and information, and patientsymptoms to aid in the diagnosis of [place]. Blood gas, [id number] 15:09:57 Test Item Value Reference Range Interpretation Comments pH, Arterial (test code 7.40 7.35-7.45 = 2744-1) pCO2, Arterial (test 44 See_Comment [Autom ated message] code = 2019-8) The system Magisto generated this result transmit markie reference range : 35 - 45 mm Hg. The reference range was not used to interpret this result as normal/abnormal . pO2, Arterial (test 195 See_Comment H [Automa markie message] code = 2703-7) The system Magisto generated this result transmit markie reference range [...] 36.0 Lab Interpretation Abnormal (test code = 66619-4) [facility] gas, [id number] 15:09:57 Test Item Value Reference Range Interpretation Comments pH, Arterial (test code 7.40 7.35-7.45 = 2744-1) pCO2, Arterial (test 44 See_Comment [Autom ated message] code = 2018-10) The system Magisto generated this result transmit markie reference range : 35 - 45 mm Hg. The reference range was not used to interpret this result as normal/abnormal . pO2, Arterial (test 195 See_Comment H [Automa markie message] code = 2703-7) The system Magisto generated this result transmit markie reference range [...] 36.0 Lab Interpretation Abnormal (test code = 95851-5) [facility] gas, [id number] 15:09:57 Test Item Value Reference Range Interpretation Comments pH, Arterial (test code 7.40 7.35-7.45 = 2744-1) pCO2, Arterial (test 44 See_Comment [Autom ated message] code = 2019-) The system Magisto generated this result transmit markie reference range : 35 - 45 mm Hg. The reference range was not used to interpret this result as normal/abnormal . pO2, Arterial (test 195 See_Comment H [Automa markie message] code = 2703-7) The system Magisto generated this result transmit markie reference range [...] 36.0 Lab Interpretation Abnormal (test code = 23911-1) [facility], [id number] 15:09:57 Test Item Value Reference Range Interpretation Comments pH, Arterial (test code 7.40 7.35-7.45 = 2744-1) pCO2, Arterial (test 44 See_Comment [Autom ated message] code = 2018-) The system Magisto generated this result transmit markie reference range : 35 - 45 mm Hg. The reference range was not used to interpret this result as normal/abnormal . pO2, Arterial (test 195 See_Comment H [Automa markie message] code = 2703-7) The system Magisto generated this result transmit markie reference range [...] 36.0 Lab Interpretation Abnormal (test code = 93755-1) [facility] CenterBlood [facility], [id number] 15:09:57 Test Item Value Reference Range Interpretation Comments pH, Arterial (test code 7.40 7.35-7.45 = 2744-1) pCO2, Arterial (test 44 See_Comment [Autom ated message] code = 2019-) The system Magisto generated this result transmit markie reference range : 35 - 45 mm Hg. The reference range was not used to interpret this result as normal/abnormal . pO2, Arterial (test 195 See_Comment H [Automa markie message] code = 2703-7) The system Magisto generated this result transmit markie reference range [...] 36.0 Lab Interpretation Abnormal (test code = 02414-9) [facility], [id number] 15:09:57 Test Item Value Reference Range Interpretation Comments pH, Arterial (test code 7.40 7.35-7.45 = 2744-1) pCO2, Arterial (test 44 See_Comment [Autom ated message] code = 2019-8) The system Magisto generated this result transmit markie reference range : 35 - 45 mm Hg. The reference range was not used to interpret this result as normal/abnormal . pO2, Arterial (test 195 See_Comment H [Automa markie message] code = 2703-7) The system Magisto generated this result transmit markie reference range [...] 36.0 Lab Interpretation Abnormal (test code = 59160-2) [facility] CenterBL[facility], [id number] 15:09:57 Test Item Value Reference Range Interpretation [...] (test code = 1819) 36.0 ECG 12 [id number] 13:44:42Ventricular Rate 62 BPMAtrial Rate 62 BPMP-R Interval 180 msQRS Duration 90 msQ-T Interval 454 msQTCCalculation(Bazett) 460 msP [place] 19 degreesR [place] 64 degreesT [place] 254 degrees Normal sinus rhythmPos sible Left atrial enlargementLeft ventricular hypertrophy with repolarization abnormalityAbnormal ECGWhen compared with ECG of 01-AUG-2022 10:14,ST now depressed in Inferior leadsT wave inversion more evident in Inferior leads Confirmed by MD MELVIN, DANII ([id number]) on 11/06/2022 1:44:[facility] [id number] 13:44:42Ventricular Rate 62 BPMAtrial Rate 62 BPMP-R Interval 180 msQRS Duration 90 msQ-T Interval 454 msQTC Calculation(Bazett) 460 msP [place] 19 degreesR [place] 64 degreesT [place] 254 degrees Normal sinus rhythmPossible Left atrial enlargementLeft ventricular hypertrophy with repolarization abnormalityAbnormal ECGWhen compared with ECG of 01-AUG-2022 10:14,ST now depressed in Inferior leadsT wave inversion more evident in Inferior leads Confirmed by MD MELVIN, DANII (1903) on 11/06/2022 1:44:41 PM [facility] 12 [id number] 13:44:42Ventricular Rate 62 BPMAtrial Rate 62 BPMP-R Interval 180 msQRS Duration 90 msQ-T Interval 454 msQTC Calculation(Bazett) 460 msP Charlotte 19 degreesR [place] 64 degreesT [place] 254 degrees Normal sinus rhythmPossible Left atrial enlargementLeft ventricular hypertrophy with repolarization abnormalityAbnormal ECGWhen compared with ECG of 01-AUG-2022 10:14,ST now depressed in Inferior leadsT wave inversion more evident in Inferior leads Confirmed by MD CHARLES YOCHAI (190) on 11/06/2022 1:44:41 PM [place] [address] [id number] 13:44:42Ventricular Rate 62 BPMAtrial Rate 62 BPMP-R Interval 180 msQRS Duration 90 msQ-T Interval 454 msQTC Calculation(Bazett) 460 msP Charlotte 19 degreesR [place] 64 degreesT [place] 254 degrees Normal sinus rhythmPossible Left atrial enlargementLeft ventricular hypertrophy with repolarization abnormalityAbnormal ECGWhen compared with ECG of 01-AUG-2022 10:14,ST now depressed in Inferior leadsT wave inversion more evident in Inferior leads Confirmed by MD CHARLES YOCHAI (1903) on 11/06/2022 1:44:41 PM [place] [address] [id number] 13:44:42Ventricular Rate 62 BPMAtrial Rate 62 BPMP-R Interval 180 msQRS Duration 90 msQ-T Interval 454 msQTC Calculation(Bazett) 460 msP Charlotte 19 degreesR [place] 64 degreesT [place] 254 degrees Normal sinus rhythmPossible Left atrial enlargementLeft ventricular hypertrophy with repolarization abnormalityAbnormal ECGWhen compared with ECG of 01-AUG-2022 10:14,ST now depressed in Inferior leadsT wave inversion more evident in Inferior leads Confirmed by MD CHARLES YOCHAI (190) on 11/06/2022 1:44:41 PM [place] [address] [id number] 13:44:42Ventricular Rate 62 BPMAtrial Rate 62 BPMP-R Interval 180 msQRS Duration 90 msQ-T Interval 454 msQTC Calculation(Bazett) 460 msP Charlotte 19 degreesR Charlotte 64 degreesT [place] 254 degrees Normal sinus rhythmPossible Left atrial enlargementLeft ventricular hypertrophy with repolarization abnormalityAbnormal ECGWhen compared with ECG of 01-AUG-2022 10:14,ST now depressed in Inferior leadsT wave inversion more evident in Inferior leads Confirmed by MD CHARLES YOCHAI (1904) on 11/06/2022 1:44:41 PM [facility] CenterXR [facility] 1 view portable / [id number] 13:38:36 Chest, 1 view, 11/06/2022 11:58 AM. History: r/o aspiration pneumonia. Comparison: 10/30/2022. Discussion: The cardiac silhouette is prominent but stable. Lungs areclear. There is no pneumothorax. Feeding tube terminates below thehemidiaphragm. Right IJ central line is no longer present. There are noacute osseous findings.[facility] CenterXR CHEST 1 VIEW PORTABLE / BEDSIDE 2022-11-06 13:38:36 [facility] 1975 Sex: FChest, 1 view, 11/06/2022 11:58 AM.History: r/o aspiration pneumonia.Comparison: 10/30/2022.Discussion: Thecardiac silhouette is prominent but stable. Lungs areclear. There is no pneumothorax. Feeding tube terminates below thehemidiaphragm. Right IJ central line is no longer present. There are noacute osseous findings.IMPRESSION:No acute pulmonary findings.Electronically Signed By: Sage Caruso11/06/2022 13:40 CDTWorkstation Name: [id number] 2022-11-06 11:32:33 Test Item Value Reference Range Interpretation Comments PROCALCITONIN (WESLEY) (test code 0.31 ng/mL <0.05 H = 3036) SEPSIS RISK (ng/mL)Low: 0.05-0.50Intermediate: 0.51-2.00High: >=2.01HIGH SENSITIVITY TROPONIN [id number] 11:27:53 Test Item Value Reference Range Interpretation Comments HIGH SENSITIVITY 344 pg/ml See_Comment H [Automated message] TROPONIN I (test code The sy lianna which = [id number]) generated this result transmitted ref erence range: <=17. Th e reference range was not used to int erpret this result as normal/abnormal . Configuration Management Analyst ID - DAMIÁN WThe CONCRETE WORKER STAT High Sensitivity Troponin-I results should be used in conjunction with other diagnostic information such as ECG, clinical observations and information, and patient symptoms to aid in the diagnosis of [place].LACTIC ACID, [id number] 11:07:17 Test Item Value Reference Range Interpretation Comments LACTATE BLOOD VENOUS (2) (BEAKER) 0.80 mmol/L 0.50-2.00 (test code = 2872) Configuration Management Analyst ID Gisele STELE WCT BRAIN WITHOUT IV [id number] 10:59:53 [facility] Irineo : 1975 Sex: F ADDENDUM #1 Addendum: Compared to 11/02/2022, there is unchanged mass effect relatedto intraparenchymal hematoma given differences in technique with 7 mmleftward midline shift.Electronically Signed By: Alexandra Liang ORIGINAL REPORT CT BRAIN [...] Signed By: Alexandra Liang11/06/2022 11:01 CDTWorkstation Name: [id number] 10:57:58 Test Item Value Reference Range Interpretation Comments POC-Glucose (test code = 117 mg/dL 70-110 H : T ESTED AT [facility] 1855) [address] [facility], 770 30: Configuration Management Analyst/Techni smiley ID = [id number] for RACELIS, SHELBY INE Lab Interpretation (test Abnormal code = 17399-4) [facility]-[id number] 10:57:58 Test Item Value Reference Range Interpretation Comments POC-Hematocrit (test code 34 % 36-45 L : = 1857) Configuration Management Analyst/Techni smiley ID = [id number] for RACELIS, SHELBY INE Lab Interpretation (test Abnormal code = 05218-7) [facility] [id number] 10:57:58 Test Item Value Reference Range Interpretation Comments POC-Glucose (test code = 117 mg/dL 70-110 H : T ESTED AT [facility] 1855) 6720 [facility], 770 30: Configuration Management Analyst/Techni smiley ID = [id number] for RACELIS, SHELBY INE Lab Interpretation (test Abnormal code = 59887-0) [facility]-[id number] 10:57:58 Test Item Value Reference Range Interpretation Comments POC-Hematocrit (test code 34 % 36-45 L : = 1857) Configuration Management Analyst/Techni smiley ID = [id number] for RACELIS, SHELBY INE Lab Interpretation (test Abnormal code = 82090-9) [facility] Dgomjgp2849-48-43 10:57:58 Test Item Value Reference Range Interpretation Comments POC-Glucose (test code = 117 mg/dL 70-110 H : T ESTED AT [facility] 1855) [address] [place] [address], 770 30: Configuration Management Analyst/Techni smiley ID = [id number] for RACELIS, SHELBY INE Lab Interpretation (test Abnormal code = 90680-2) [facility][id number] 10:57:58 Test Item Value Reference Range Interpretation Comments POC-Hematocrit (test code 34 % 36-45 L : = 1857) Configuration Management Analyst/Techni smiley ID = [id number] for RACELIS, SHELBY INE Lab Interpretation (test Abnormal code = 41158-2) [facility] Jmrmndw9724-06-13 10:57:58 Test Item Value Reference Range Interpretation Comments POC-Glucose (test code = 117 mg/dL 70-110 H : T ESTED AT [facility] 1855) [address] [place] [address], 770 30: Configuration Management Analyst/Techni smiley ID = [id number] for RACELIS, SHELBY INE Lab Interpretation (test Abnormal code = 79497-1) [facility]-[id number] 10:57:58 Test Item Value Reference Range Interpretation Comments POC-Hematocrit (test code 34 % 36-45 L : = 1857) Configuration Management Analyst/Techni smiley ID = [id number] for RACELIS, SHELBY INE Lab Interpretation (test Abnormal code = 95907-5) [facility] Dugxolw9146-64-93 10:57:58 Test Item Value Reference Range Interpretation Comments POC-Glucose (test code = 117 mg/dL 70-110 H : T ESTED AT [facility] 1855) [address] [place] [address], 770 30: Configuration Management Analyst/Techni smiley ID = [id number] for RACELIS, SHELBY INE Lab Interpretation (test Abnormal code = 34993-2) [facility]-[id number] 10:57:58 Test Item Value Reference Range Interpretation Comments POC-Hematocrit (test code 34 % 36-45 L : = 1857) Configuration Management Analyst/Techni smiley ID = [id number] for RACELIS, SHELBY INE Lab Interpretation (test Abnormal code = 47221-8) [facility] Mvzijrp4281-41-68 10:57:58 Test Item Value Reference Range Interpretation Comments POC-Glucose (test code = 117 mg/dL 70-110 H : T ESTED AT [facility] 1855) 6720 [facility], 770 30: Configuration Management Analyst/Techni smiley ID = [id number] for RACELIS, SHELBY INE Lab Interpretation (test Abnormal code = 41376-8) [facility]HT[facility]-EXJSMDJCLP0971-10-22 10:57:58 Test Item Value Reference Range Interpretation Comments POC-Hematocrit (test code 34 % 36-45 L : = 1857) Configuration Management Analyst/Techni smiley ID = [id number] for RACELIS, SHELBY INE Lab Interpretation (test Abnormal code = 53196-1) [facility]-[id number] 10:57:58 Test Item Value Reference Range Interpretation Comments POC-HEMATOCRIT 34 % 36-45 L : Configuration Management Analyst/Te chnician ID = (BEAKER) (test code = 800927 for RACELIS, 1857) SAMY HRUO-[id number] 10:57:58 Test Item Value Reference Range Interpretation Comments POC-GLUCOSE (BEAKER) 117 mg/dL 70-110 H : TESTE D AT [facility] 6720 (test code = 1855) [facility] [place], [address]: Configuration Management Analyst/Techni smiley ID = [id number] for RACE LIS, SAMY IGP-Evnbwfymi8080-70-22 10:57:57 Test Item Value Reference Range Interpretation Comments POC-Potassium (test code 5.5 meq/L 3.6-5.5 : T ESTED AT [facility] = 1540) 6720 [facility], 770 30: Configuration Management Analyst/Techni smiley ID = [id number] for RACELIS, SHELBY INE Lab Interpretation (test Normal code = 80462-3) [facility] CenterTclgyrLLDV-DFWLKXZJSF0457-62-22 10:57:57 Test Item Value Reference Range Interpretation Comments POC-Hemoglobin (test code 11.6 g/dL 12.0-15.0 L : TESTED AT [facility] = 1856) [address] [place] [address], 770 30: Configuration Management Analyst/Techni smiley ID = [id number] for RACELIS, SHELBY INE Lab Interpretation (test Abnormal code = 48853-7) [facility]-Pilyvzyeq5267-07-41 10:57:57 Test Item Value Reference Range Interpretation Comments POC-Potassium (test code 5.5 meq/L 3.6-5.5 : T ESTED AT [facility] = 1540) [address] [place] [address], [facility] 30: Configuration Management Analyst/Techni smiley ID = [id number] for RACELIS, SHELBY INE Lab Interpretation (test Normal code = 18016-0) [facility]-VIEYFPBTEF6463-77-97 10:57:57 Test Item Value Reference Range Interpretation Comments POC-Hemoglobin (test code 11.6 g/dL 12.0-15.0 L : [facility] = 1856) [address] [place] [address], [facility] 30: Configuration Management Analyst/Techni smiley ID = [id number] for RACELIS, SHELBY INE Lab Interpretation (test Abnormal code = 79360-1) [facility]-Durulgkup4771-10-22 10:57:57 Test Item Value Reference Range Interpretation Comments POC-Potassium (test code 5.5 meq/L 3.6-5.5 : T ESTED AT [facility] = 1540) [address] [place] [address], [facility] 30: Configuration Management Analyst/Techni smiley ID = [id number] for RACELIS, SHELBY INE Lab Interpretation (test Normal code = 72364-5) [facility]-CGNYQKGOSA3425-83-11 10:57:57 Test Item Value Reference Range Interpretation Comments POC-Hemoglobin (test code 11.6 g/dL 12.0-15.0 L : [facility] = 1856) [address] [place] [address], [facility] 30: Configuration Management Analyst/Techni smiley ID = [id number] for RACELIS, SHELBY INE Lab Interpretation (test Abnormal code = 42261-3) [facility]-Oftyjdsoo9934-85-58 10:57:57 Test Item Value Reference Range Interpretation Comments POC-Potassium (test code 5.5 meq/L 3.6-5.5 : T ESTED AT [facility] = 1540) [address] [place] [address], [facility] 30: Configuration Management Analyst/Techni smiley ID = [id number] for RACELIS, SHELBY INE Lab Interpretation (test Normal code = 40454-0) [facility]-SKJNNMSRRU8243-10-77 10:57:57 Test Item Value Reference Range Interpretation Comments POC-Hemoglobin (test code 11.6 g/dL 12.0-15.0 L : TESTED AT [facility] = 1856) [address] [place] [address], [facility] 30: Configuration Management Analyst/Techni smiley ID = [id number] for RACELIS, SHELBY INE Lab Interpretation (test Abnormal code = 90568-3) [facility]-Gdmjediqx3285-66-64 10:57:57 Test Item Value Reference Range Interpretation Comments POC-Potassium (test code 5.5 meq/L 3.6-5.5 : T ESTED AT [facility] = 1540) [address] [place] [address], [facility] 30: Configuration Management Analyst/Techni smiley ID = [id number] for RACELIS, SHELBY INE Lab Interpretation (test Normal code = 00040-3) [facility]-YJPJQGMJMC9014-06-91 10:57:57 Test Item Value Reference Range Interpretation Comments POC-Hemoglobin (test code 11.6 g/dL 12.0-15.0 L : TESTED AT [facility] = 1856) [address] [place] [address], [facility] 30: Configuration Management Analyst/Techni smiley ID = [id number] for RACELIS, SHELBY INE Lab Interpretation (test Abnormal code = 82516-1) [facility]-Xgyngqufg7273-04-11 10:57:57 Test Item Value Reference Range Interpretation Comments POC-Potassium (test code 5.5 meq/L 3.6-5.5 : T ESTED AT [facility] = 1540) [address] [place] [address], [facility] 30: Configuration Management Analyst/Techni smiley ID = [id number] for RACELIS, SHELBY INE Lab Interpretation (test Normal code = 86304-4) [facility]-MJRSZTAVAK9634-66-88 10:57:57 Test Item Value Reference Range Interpretation Comments POC-Hemoglobin (test code 11.6 g/dL 12.0-15.0 L : [facility] AT [facility] = 1856) [address] [place] [address], 770 30: Configuration Management Analyst/Techni smiley ID = [id number] for RACELIS, SHELBY INE Lab Interpretation (test Abnormal code = 12781-2) [facility]-[id number] 10:57:57 Test Item Value Reference Range Interpretation Comments POC-POTASSIUM 5.5 meq/L 3.6-5.5 : TESTED AT [place] [address] ([facility]) (test code [facility], = 1540) [address]: Configuration Management Analyst/Techni smiley ID = [id number] for RACE SAMY GUPTA CQFO-[id number] 10:57:57 Test Item Value Reference Range Interpretation Comments POC-HEMOGLOBIN 11.6 g/dL 12.0-15.0 L : TESTED AT [place] [address] ([facility]) (test code [facility], = 1856) [address]: Configuration Management Analyst/Techni smiley ID = [id number] for SAMY DAVIS PKE-Ydhlzn7842-07-22 10:57:52 Test Item Value Reference Range Interpretation Comments POC-Sodium (test code = 142 meq/L 135-148 : TE STED AT [facility] 1542) [address] [place] [address], [facility] 30: Configuration Management Analyst/Techni smiley ID = [id number] for RACELIS, SHELBY INE Lab Interpretation (test Normal code = 33275-4) [facility]-Yucite8959-32-92 10:57:52 Test Item Value Reference Range Interpretation Comments POC-Sodium (test code = 142 meq/L 135-148 : TE STED AT [facility] 1542) [address] [place] [address], [facility] 30: Configuration Management Analyst/Techni smiley ID = [id number] for RACELIS, SHELBY INE Lab Interpretation (test Normal code = 51093-3) [facility]-Slsujx1723-70-91 10:57:52 Test Item Value Reference Range Interpretation Comments POC-Sodium (test code = 142 meq/L 135-148 : TE STED AT [facility] 1542) [address] [place] [address], 770 30: Configuration Management Analyst/Techni smiley ID = [id number] for RACELIS, SHELBY INE Lab Interpretation (test Normal code = 93611-9) [facility]-Ssduhc6127-48-64 10:57:52 Test Item Value Reference Range Interpretation Comments POC-Sodium (test code = 142 meq/L 135-148 : TE STED AT [facility] 1542) 6720 [facility], 770 30: Configuration Management Analyst/Techni smiley ID = [id number] for RACELIS, SHELBY INE Lab Interpretation (test Normal code = 53451-4) [facility]-Cozjrw3897-36-15 10:57:52 Test Item Value Reference Range Interpretation Comments POC-Sodium (test code = 142 meq/L 135-148 : TE STED AT [facility] 1542) 6720 [facility], 770 30: Configuration Management Analyst/Techni smiley ID = [id number] for RACELIS, SHELBY INE Lab Interpretation (test Normal code = 19019-4) [facility]-Wxovcg7864-94-27 10:57:52 Test Item Value Reference Range Interpretation Comments POC-Sodium (test code = 142 meq/L 135-148 : TE STED AT [facility] 1542) 6720 [facility], 770 30: Configuration Management Analyst/Techni smiley ID = [id number] for RACELIS, SHELBY INE Lab Interpretation (test Normal code = 23208-4) [facility]-[id number] 10:57:52 Test Item Value Reference Range Interpretation Comments POC-SODIUM (BEAKER) 142 meq/L 135-148 : TESTED AT [facility] 6720 (test code = 1542) [facility], [address]: Configuration Management Analyst/Techni smiley ID = [id number] for RACE LIS, SAMY POC-Blood gases, holbkiit4190-80-38 10:57:51 Test Item Value Reference Range Interpretation [...] tomated message] code = 1838) The system to-BBB generated this result transmit markie reference range : 80.0 - 90.0 mm Hg. The reference r elizabeth was not used to interpret this result as normal/abnormal . SO2, Arterial-POC (test 35.0 % 96.0-97.0 L code = 1839) HCO3, Arterilal-POC 32.6 meq/L 21.0-29.0 H (test code = 1840) BE, Arterial-POC (test 7.0 meq/L -2.0-3.0 H : LAISHA MARKIE AT [facility] code = 1841) 6720 [facility], [address]: Configuration Management Analyst/Techni smiley ID = [id number] for SHELBY GONZALEZ DORENE Lab Interpretation Abnormal (test code = 73004-8) [facility]-Blood gases, lqzavokw0879-49-36 10:57:51 Test Item Value Reference Range Interpretation [...] tomated message] code = 1838) The system to-BBB generated this result transmit markie reference range : 80.0 - 90.0 mm Hg. The reference r elizabeth was not used to interpret this result as normal/abnormal . SO2, Arterial-POC (test 35.0 % 96.0-97.0 L code = 1839) HCO3, Arterilal-POC 32.6 meq/L 21.0-29.0 H (test code = 1840) BE, Arterial-POC (test 7.0 meq/L -2.0-3.0 H : LAISHA MARKIE AT [facility] code = 1841) [address] [place] [place], [address]: Configuration Management Analyst/Techni smiley ID = [id number] for DWIGHTSSHELBY INE Lab Interpretation Abnormal (test code = 12578-2) [facility]-Blood gases, bercdtif6004-26-69 10:57:51 Test Item Value Reference Range Interpretation [...] tomated message] code = 1838) The system to-BBB generated this result transmit markie reference range : 80.0 - 90.0 mm Hg. The reference r elizabeth was not used to interpret this result as normal/abnormal . SO2, Arterial-POC (test 35.0 % 96.0-97.0 L code = 1839) HCO3, Arterilal-POC 32.6 meq/L 21.0-29.0 H (test code = 1840) BE, Arterial-POC (test 7.0 meq/L -2.0-3.0 H : LAISHA MARKIE AT [facility] code = 1841) [address] [facility], [address]: Configuration Management Analyst/Techni smiley ID = [id number] for SHELBY GONZALEZ INE Lab Interpretation Abnormal (test code = 63687-1) [facility]-Blood gases, prfsvdsm0716-99-91 10:57:51 Test Item Value Reference Range Interpretation [...] tomated message] code = 1838) The system to-BBB generated this result transmit markie reference range : 80.0 - 90.0 mm Hg. The reference r elizabeth was not used to interpret this result as normal/abnormal . SO2, Arterial-POC (test 35.0 % 96.0-97.0 L code = 1839) HCO3, Arterilal-POC 32.6 meq/L 21.0-29.0 H (test code = 1840) BE, Arterial-POC (test 7.0 meq/L -2.0-3.0 H : LAISHA MARKIE AT [facility] code = 1841) [address] [place], [address]: Configuration Management Analyst/Techni smiley ID = [id number] for SHELBY GONZALEZ Lab Interpretation Abnormal (test code = 00294-3) [facility]-Blood gases, brvoxobv7624-95-93 10:57:51 Test Item Value Reference Range Interpretation [...] tomated message] code = 1838) The system to-BBB generated this result transmit markie reference range : 80.0 - 90.0 mm Hg. The reference r elizabeth was not used to interpret this result as normal/abnormal . SO2, Arterial-POC (test 35.0 % 96.0-97.0 L code = 1839) HCO3, Arterilal-POC 32.6 meq/L 21.0-29.0 H (test code = 1840) BE, Arterial-POC (test 7.0 meq/L -2.0-3.0 H : LAISHA MARKIE AT [facility] code = 1841) 6720 [facility], [address]: Configuration Management Analyst/Techni smiley ID = [id number] for SHELBY GONZALEZ Lab Interpretation Abnormal (test code = 64891-8) [facility]-Blood gases, msnkrtaj4612-62-82 10:57:51 Test Item Value Reference Range Interpretation [...] tomated message] code = 1838) The system [place] h generated this result transmit markie reference range : 80.0 - 90.0 mm Hg. The reference r elizabeth was not used to interpret this result as normal/abnormal . SO2, Arterial-POC (test 35.0 % 96.0-97.0 L code = 1839) HCO3, Arterilal-POC 32.6 meq/L 21.0-29.0 H (test code = 1840) BE, Arterial-POC (test 7.0 meq/L -2.0-3.0 H : LAISHA MARKIE AT [facility] code = 1841) [address] [place], [address]: Configuration Management Analyst/Techni smiley ID = [id number] for SHELBY GONZALEZ Lab Interpretation Abnormal (test code = 04299-0) [facility]-BLOOD GASES, [id number] 10:57:51 Test Item Value Reference Range Interpretation [...] meq/L -2.0-3.0 H : TESTED AT [facility] 6720 ARTERIAL-POC [facility], (BEAKER) (test code [address]: = 1841) Configuration Management Analyst/Techni smiley ID = [id number] for SAMY DAVIS POCT-GLUCOSE [id number] 10:21:20 Test Item Value Reference Range Interpretation Comments POC-GLUCOSE METER 117 mg/dL 70-110 H : TESTED A T [facility] 6720 (BEAKER) (test code = [facility], 1538) [address]: Configuration Management Analyst/Techni smiley ID = [id number] for MANDA ESPARZA CT brain without IV zezdvovv9916-50-53 09:31:[address] BRAIN WITHOUT IV [...] within normal limits. No obstructive paranasal sinus disease.[facility] [id number] 05:45:28 Test Item Value Reference Range Interpretation Comments POC-GLUCOSE METER 116 mg/dL 70-110 H : TESTED A T [facility] 6720 (BEAKER) (test code = [place], 1538) [address]: Configuration Management Analyst/Techni smiley ID = [id number] for Teresa Rose BASIC METABOLIC [id number] 05:42:31 Test Item Value Reference Range Interpretation [...] not appl icable for dialysis patien ts Configuration Management Analyst ID - [id number] 05:40:46 Test Item Value Reference Range Interpretation Comments MAGNESIUM (BEAKER) (test code = 2.9 mg/dL 1.6-2.6 H 627) Configuration Management Analyst ID - [id number] 05:40:46 Test Item Value Reference Range Interpretation Comments PHOSPHORUS (BEAKER) (test code = 6.5 mg/dL 2.3-4.7 H 604) Configuration Management Analyst ID - ADMINCBC W/PLT COUNT & AUTO [id number] 05:38:35 Test Item Value Reference Range Interpretation [...] PERCENT (BEAKER) (test code = 2801) POCT-GLUCOSE [id number] 23:35:25 Test Item Value Reference Range Interpretation Comments POC-GLUCOSE METER 135 mg/dL 70-110 H : TESTED A T [facility] 6720 (BEAKER) (test code = [facility], 1538) [address]: Configuration Management Analyst/Techni smiley ID = [id number] for Teresa Rose POCT-GLUCOSE [id number] 17:28:48 Test Item Value Reference Range Interpretation Comments POC-GLUCOSE METER 101 mg/dL 70-110 : TESTED A T [facility] 6720 (BEAKER) (test code = [facility], 1538) [address]: Configuration Management Analyst/Techni smiley ID = [id number] for CIRA HUMPHREY BLOOD [id number] 17:00:30 Test Item Value Reference Range Interpretation Comments CULTURE (BEAKER) (test No growth in 5 days code = 1095) BLOOD [id number] 17:00:30 Test Item Value Reference Range Interpretation Comments CULTURE (BEAKER) (test No growth in 5 days code = 1095) XR ABDOMEN/KUB 1 VIEW [id number] 14:17:07 [facility] : 1975 Sex: FXR ABDOMEN/KUB 1 VIEW PORTABLETECHNIQUE: Supine radiograph(s) of the abdomen and pelvis.HISTORY: corpak placementCOMPARISON: 12/04/2022IMPRESSION:Lines and tubes: Enteric tube is seen with tip in the stomachElectronically Signed By: Sarah Carrera11/05/2022 14:19 CDTWorkstation Name: [id number]-PRNPCHY [id number] 12:53:33 Test Item Value Reference Range Interpretation Comments POC-GLUCOSE METER 88 mg/dL 70-110 : TESTED A T [facility] 6720 (BEAKER) (test code = [facility] [employer] [facility], 1538) [address]: Configuration Management Analyst/Techni smiley ID = [id number] for CIRA ROLAND POCT-GLUCOSE [id number] 06:25:50 Test Item Value Reference Range Interpretation Comments POC-GLUCOSE METER 110 mg/dL 70-110 : TESTED A T [facility] 6720 (BEAKER) (test code = [employer] [facility], 1538) [address]: Configuration Management Analyst/Techni smiley ID = [id number] for NADEGE IVEY BASIC METABOLIC [id number] 04:16:53 Test Item Value Reference Range Interpretation [...] not appl icable for dialysis patien ts Configuration Management Analyst ID - DAMIÁN [id number] 04:16:53 Test Item Value Reference Range Interpretation Comments MAGNESIUM (BEAKER) (test code = 2.8 mg/dL 1.6-2.6 H 627) Configuration Management Analyst ID - DAMIÁN [id number] 04:16:53 Test Item Value Reference Range Interpretation Comments PHOSPHORUS (BEAKER) (test code = 5.7 mg/dL 2.3-4.7 H 604) Configuration Management Analyst ID Gisele STEEL WCBC W/PLT COUNT & AUTO [id number] 03:44:05 Test Item Value Reference Range Interpretation [...] PERCENT (BEAKER) (test code = 2801) POCT-GLUCOSE [id number] 23:25:33 Test Item Value Reference Range Interpretation Comments POC-GLUCOSE METER 114 mg/dL 70-110 H : TESTED A T [facility] 6720 (BEAKER) (test code = [facility], 153) [address]: Configuration Management Analyst/Techni smiley ID = [id number] for NADEGE IVEY [id number] 18:58:11 Test Item Value Reference Range Interpretation Comments SODIUM (BEAKER) (test code = 381) 142 meq/L 136-145 Configuration Management Analyst ID - JSPOCT-GLUCOSE [id number] 17:04:52 Test Item Value Reference Range Interpretation Comments POC-GLUCOSE METER 142 mg/dL 70-110 H : TESTED A T [facility] 6720 (BEAKER) (test code = [facility], 153) [address]: Configuration Management Analyst/Techni smiley ID = [id number] for MA RTINEZ, MANDA POCT-GLUCOSE [id number] 12:43:34 Test Item Value Reference Range Interpretation Comments POC-GLUCOSE METER 127 mg/dL 70-110 H : TESTED A T [facility] 6720 (BEAKER) (test code = [facility], 153) [address]: Configuration Management Analyst/Techni smiley ID = [id number] for MA RTINEZ, MANDA [id number] 12:42:31 Test Item Value Reference Range Interpretation Comments SODIUM (BEAKER) (test code = 381) 141 meq/L 136-145 Configuration Management Analyst ID - JSPOCT-GLUCOSE [id number] 05:53:11 Test Item Value Reference Range Interpretation Comments POC-GLUCOSE METER 122 mg/dL 70-110 H : TESTED A T [facility] 6720 (BEAKER) (test code = [facility] [place], 1538) [address]: Configuration Management Analyst/Techni smiley ID = [id number] for NADEGE IVEY [id number] 04:57:58 Test Item Value Reference Range Interpretation Comments PHOSPHORUS (BEAKER) 6.1 mg/dL 2.3-4.7 H Specimen slightly (test code = 604) hemolyzed Configuration Management Analyst ID - DAMIÁN WBASIC METABOLIC [id number] 04:57:58 Test Item Value Reference Range Interpretation [...] not as accur ate as Creatinine María Elean zain in predicting glom erular filtration rate . Estimated GFR is not appl icable for dialysis patien ts Configuration Management Analyst ID - DAMIÁN [id number] 04:57:57 Test Item Value Reference Range Interpretation Comments MAGNESIUM (BEAKER) 2.7 mg/dL 1.6-2.6 H Specimen slightly (test code = 627) hemolyzed Configuration Management Analyst ID - DAMIÁN WCBC W/PLT COUNT & AUTO [id number] 04:36:11 Test Item Value Reference Range Interpretation [...] PERCENT (BEAKER) (test code = 2801) POCT-GLUCOSE [id number] 00:26:17 Test Item Value Reference Range Interpretation Comments POC-GLUCOSE METER 117 mg/dL 70-110 H : TESTED A T [facility] 6720 (BEAKER) (test code = [facility], 1538) 53832: Configuration Management Analyst/Techni smiley ID = [id number] for NADEGE IVEY [id number] 19:29:04 Test Item Value Reference Range Interpretation Comments SODIUM (BEAKER) (test code = 381) 141 meq/L 136-145 Configuration Management Analyst ID - ADMINPOCT-GLUCOSE [id number] 16:58:24 Test Item Value Reference Range Interpretation Comments POC-GLUCOSE METER 142 mg/dL 70-110 H : TESTED A T [facility] 6720 (BEAKER) (test code = [facility], 1538) 53231: Configuration Management Analyst/Techni smiley ID = [id number] for MANDA ESPARZA XR ABDOMEN/KUB 1 VIEW [id number] 13:01:43 [facility] : 1975 Sex: FAbdomen , one viewHistory:Feeding tube placementComparison:10/30/2022Findings:Tip of the feeding tube is near the pylorus. Nonobstructive bowel gaspattern. Cholecystectomy clips within the right upper quadrant.Electronically Signed By: Kam Vigil MD11/03/2022 13:03 CDTWorkstation Name: [id number] 12:39:24 Test Item Value Reference Range Interpretation Comments SODIUM (BEAKER) (test code = 381) 142 meq/L 136-145 POCT-GLUCOSE [id number] 12:05:03 Test Item Value Reference Range Interpretation Comments POC-GLUCOSE METER 118 mg/dL 70-110 H : TESTED A T [facility] 6720 (BEAKER) (test code = [facility] [place], 1538) 41405: Configuration Management Analyst/Techni smiley ID = [id number] for MANDA ESPARZA [id number] 06:17:11 Test Item Value Reference Range Interpretation Comments PHOSPHORUS (BEAKER) (test code = 4.1 mg/dL 2.3-4.7 604) Configuration Management Analyst ID - DAMIÁN WBASIC METABOLIC [id number] 06:17:10 Test Item Value Reference Range Interpretation [...] not appl icable for dialysis patien ts Configuration Management Analyst ID - DAMIÁN [id number] 06:17:10 Test Item Value Reference Range Interpretation Comments MAGNESIUM (BEAKER) (test code = 2.4 mg/dL 1.6-2.6 627) Configuration Management Analyst ID - DAMIÁN WPOCT-GLUCOSE [id number] 05:50:21 Test Item Value Reference Range Interpretation Comments POC-GLUCOSE METER 121 mg/dL 70-110 H : TESTED A T [facility] 6720 (BEAKER) (test code = [facility], 1538) 61961: Configuration Management Analyst/Techni smiley ID = [id number] for NADEGE IVEY CBC W/PLT COUNT & AUTO [id number] 05:25:22 Test Item Value Reference Range Interpretation [...] PERCENT (BEAKER) (test code = 2801) POCT-GLUCOSE [id number] 23:36:51 Test Item Value Reference Range Interpretation Comments POC-GLUCOSE METER 116 mg/dL 70-110 H : TESTED A T [facility] 6720 (BEAKER) (test code = [facility], 153) 24275: Configuration Management Analyst/Techni smiley ID = [id number] for NADEGE IVEY [id number] 18:30:49 Test Item Value Reference Range Interpretation Comments SODIUM (BEAKER) (test code = 381) 141 meq/L 136-145 Configuration Management Analyst ID - ADMINPOCT-GLUCOSE [id number] 17:57:14 Test Item Value Reference Range Interpretation Comments POC-GLUCOSE METER 118 mg/dL 70-110 H : TESTED A T [facility] 6720 (BEAKER) (test code = [facility], 153) 56862: Configuration Management Analyst/Techni smiley ID = [id number] for An Donna lucas MRSA [id number] 14:39:15 Test Item Value Reference Range Interpretation Comments Result (test code = 6463-4) No [facility] [id number] 14:39:15 Test Item Value Reference Range Interpretation Comments Result (test code = 6463-4) No [facility] [id number] 14:39:15 Test Item Value Reference Range Interpretation Comments Result (test code = 6463-4) No [facility] [id number] 14:39:15 Test Item Value Reference Range Interpretation Comments Result (test code = 6463-4) No [facility] [id number] 14:39:15 Test Item Value Reference Range Interpretation Comments Result (test code = 6463-4) No MRSA isolated [facility] [id number] 14:39:15 Test Item Value Reference Range Interpretation Comments Result (test code = 6463-4) No MRSA isolated [facility] [id number] 14:39:15 Test Item Value Reference Range Interpretation Comments CULTURE (BEAKER) (test code No MRSA isolated = 1095) [id number] 13:35:39 Test Item Value Reference Range Interpretation Comments SODIUM (BEAKER) (test code = 381) 139 meq/L 136-145 Configuration Management Analyst ID - BVPOCT-GLUCOSE [id number] 13:06:41 Test Item Value Reference Range Interpretation Comments POC-GLUCOSE METER 134 mg/dL 70-110 H : TESTED A T [facility] 6720 (BEAKER) (test code = [facility] [place], 1538) 75585: Configuration Management Analyst/Techni smiley ID = [id number] for An Donna lucas CT BRAIN WITHOUT IV [id number] 13:00:59 [facility] : 1975 Sex: [...] Signed By: Alexandra Liang11/02/2022 13:03 CDTWorkstation Name: [id number] 06:29:29 Test Item Value Reference Range Interpretation Comments SODIUM (BEAKER) (test code = 381) 139 meq/L 136-145 BASIC METABOLIC [id number] 06:29:28 Test Item Value Reference Range Interpretation [...] not appl icable for dialysis patien ts Configuration Management Analyst ID - [id number] 06:29:28 Test Item Value Reference Range Interpretation Comments MAGNESIUM (BEAKER) (test code = 2.2 mg/dL 1.6-2.6 627) Configuration Management Analyst ID - [id number] 06:29:28 Test Item Value Reference Range Interpretation Comments PHOSPHORUS (BEAKER) (test code = 3.8 mg/dL 2.3-4.7 604) Configuration Management Analyst ID - MARCOPOCT-GLUCOSE [id number] 06:21:55 Test Item Value Reference Range Interpretation Comments POC-GLUCOSE METER 125 mg/dL 70-110 H : TESTED A T [facility] 6720 (BEAKER) (test code = [facility] Dunn [facility], 1538) 07512: Configuration Management Analyst/Techni smiley ID = [id number] for NADEGE IVEY CBC W/PLT COUNT & AUTO [id number] 06:08:00 Test Item Value Reference Range Interpretation [...] PERCENT (BEAKER) (test code = 2801) POCT-GLUCOSE [id number] 00:19:06 Test Item Value Reference Range Interpretation Comments POC-GLUCOSE METER 99 mg/dL 70-110 : TESTED Oscar Art [facility] 6720 (BEAKER) (test code = [facility], 1538) 97026: Configuration Management Analyst/Techni smiley ID = [id number] for NADEGE MORALES2023-08-17 18:45:56 Test Item Value Reference Range Interpretation Comments SODIUM (BEAKER) (test code = 381) 140 meq/L 136-145 Configuration Management Analyst ID - ADMPOCT-GLUCOSE [id number] 18:39:21 Test Item Value Reference Range Interpretation Comments POC-GLUCOSE METER 121 mg/dL 70-110 H : TESTED A T 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 Right Atrium RA size is normal. AtrialSeptum Normal interatrial septum by available views. Aortic Valve Normal AoV structure. Early systolic closure by M-mode noted. No evidence of aortic stenosis. No evidence of aortic regurgitation. No evidence of intracavitary obstruction. Mitral Valve Mild mitral annular calcification. Mild MV leafletthickening. No systolic anterior motion noted. Tricuspid Valve [...] Left Atrium LA Volume: 96.33 ml LA Area:28.38 cm^2 LA Vol. Index: 55 ml/m^2 Left Ventricle LVIDd: 4.28 cm LVEDV:60.06 ml LV Septum Diastolic: 1.54 cm LV PW Diastolic: 1.39 cm LVEDV Javed's:76.48 ml LV Length: 8.96 cm LVESV Javed's:34.26ml LVEF Javed's: 55.1 % LVEDVI: 43 ml/m^2 LVESVI: 19 ml/m^2 LVOT Diameter: 1.98 cm Right Atrium RAVol. (Sngl Plane): 39.7 ml Right Ventricle RVOT VTI: 22.34 cm TAPSE: 1.72 cmAorta Ao Root S of Charis.:3.23 cm Ascending Aorta: 4.58 cmDoppler/Quantitative Measurements Mitral [...] Gradient: 7.17 mmHg LVOT Diameter: 1.98 cm LVOTVTI: 30.71 cm LVOT Area: 3.08 cm^2 LVOT SV:94.51 ml LVOT CO: 7.66 l/min LVOT CI: 4.35 l/min/m^2 Pulmonic Valve Peak Velocity: 1.32 m/s Peak Gradient: 7.01 [facility] [id number] 14:24:36 Test Item Value Reference Range Interpretation Comments SODIUM (BEAKER) (test code = 381) 140 meq/L 136-145 Configuration Management Analyst ID - [id number] 10:06:02 Test Item Value Reference Range Interpretation Comments POTASSIUM (BEAKER) (test code = 3.8 meq/L 3.5-5.1 379) Configuration Management Analyst ID - [id number] 10:06:01 Test Item Value Reference Range Interpretation Comments MAGNESIUM (BEAKER) (test code = 2.3 mg/dL 1.6-2.6 627) Configuration Management Analyst ID - ADMVANCOMYCIN LEVEL, [id number] 09:59:39 Test Item Value Reference Range Interpretation Comments VANCOMYCIN TROUGH (BEAKER) (test 8.4 ug/mL 10.0-20.0 L code = 522) Configuration Management Analyst ID - [id number] 04:21:26 Test Item Value Reference Range Interpretation Comments MAGNESIUM (BEAKER) (test code = 2.0 mg/dL 1.6-2.6 627) Configuration Management Analyst ID - [id number] 04:21:26 Test Item Value Reference Range Interpretation Comments PHOSPHORUS (BEAKER) (test code = 3.2 mg/dL 2.3-4.7 604) Configuration Management Analyst ID - ADMINBASIC METABOLIC [id number] 04:21:25 Test Item Value Reference Range Interpretation [...] not appl icable for dialysis patien ts Configuration Management Analyst ID - ADMINCBC W/PLT COUNT & AUTO [id number] 03:36:42 Test Item Value Reference Range Interpretation [...] 0.00-1.00 PERCENT (BEAKER) (test code = 2801) [id number] 00:11:29 Test Item Value Reference Range Interpretation Comments SODIUM (WESLEY) (test code = 381) 139 meq/L 136-145 Configuration Management Analyst ID - [id number] 18:25:44 Test Item Value Reference Range Interpretation Comments SODIUM (WESLEY) (test code = 381) 139 meq/L 136-145 Configuration Management Analyst ID - esauSARS-CoV2/Influenza/RSV RT-PCR (Symptomatic ONLY)2022-10-31 14:03:24 Test Item Value Reference Interpretation Comments Range SARS-COV2/RT-PCR Negative Negative The SARS-Co V-2 (test code = target nucleic 18465-5) acids are not detected in thi s [...] om SARS-CoV-2 in a nasopharyngeal swab specimen [facility] from individual s suspected of COVID-19 by the ir healthcare provider. Influenza A RT-PCR Negative Negative The Flu A target (test code = [place] 88843-5) not detected in this specimen. Influenza B RT-PCR Negative Negative The Flu B target (test code = [place] 82501-1) not detected in this specimen. RSV by RT-PCR (test Negative Negative The RSV target code = 59102-3) nucleic acid s are not detected in [...] the Act. Fact Sheet for Healthcare Providers:https://w i-[employer]/Docu ments/Xpert%20Xpres s%20SARS%20CoV-2/Fa ct%20Sheets/302-390 2%64IPNN-FKK-1%20HE ALTHCARE%20PROVIDER S%20FACT%20SHEET.pd f Fact Sheet for Healthcare Patients:https://[employer]/Docum ents/Xpert%20Xpress %20SARS%20Cov-2/Fac t%20Sheets/302-3801 %13EDXI-XND-8%20PAT IENT%20FACT%20SHEET .pdf Lab Interpretation Normal (test code = 41330-9) [facility]Symptomatic ONLY) 2022-10-31 14:03:24 Test Item Value Reference Interpretation Comments Range SARS-COV2/RT-PCR Negative Negative The SARS-Co V-2 (test code = target nucleic 72299-1) acids are not detected in thi s [...] (test code = [place] 92839-3) not detected in this specimen. Influenza B RT-PCR Negative Negative The Flu B target (test code = [place] 89243-3) not detected in this specimen. RSV by RT-PCR (test Negative Negative The RSV target code = 66769-8) nucleic acid s are not detected in [...] SARS-CoV-2/Flu/RSV by their healthcare provider. [facility] Xpert Xpress SARS-CoV-2/Flu/RSV test should be [...] the Act. Fact Sheet for Healthcare Providers:https://w i-[employer]/Docu ments/Xpert%20Xpres s%20SARS%20CoV-2/Fa ct%20Sheets/302-390 2%88OWOV-ADR-0%20HE ALTHCARE%20PROVIDER S%20FACT%20SHEET.pd f Fact Sheet for Healthcare Patients:https://[employer]/Docum ents/Xpert%20Xpress %20SARS%20Cov-2/Fac t%20Sheets/302-3801 %04VANC-YYG-6%20PAT IENT%20FACT%20SHEET .pdf Lab Interpretation Normal (test code = 73247-6) [facility] (Symptomatic ONLY) 2022-10-31 14:03:24 Test Item Value Reference Interpretation Comments Range SARS-COV2/RT-PCR Negative Negative The SARS-Co V-2 (test code = target nucleic 23271-3) acids are not detected in thi s [...] (test code = [place] [address]-1) not detected in this specimen. Influenza B RT-PCR Negative Negative The Flu B target (test code = [place] re 19423-5) not detected in this specimen. RSV by RT-PCR (test Negative Negative The RSV target code = 85063-2) nucleic acid s are not detected in [...] the Act. Fact Sheet for Healthcare Providers:https://w ww.[employer]/Docu ments/Xpert%20Xpres s%20SARS%20CoV-2/Fa ct%20Sheets/302-390 2%14HCXM-XTI-7%20HE ALTHCARE%20PROVIDER S%20FACT%20SHEET.pd f Fact Sheet for Healthcare Patients:https://linda w.[employer]/Docum ents/Xpert%20Xpress %20SARS%20Cov-2/Fac t%20Sheets/302-3801 %47SCOF-BDM-7%20PAT IENT%20FACT%20SHEET .pdf Lab Interpretation Normal (test code = 16548-6) [facility] (Symptomatic ONLY) 2022-10-31 14:03:24 Test Item Value Reference Interpretation Comments Range SARS-COV2/RT-PCR Negative Negative The SARS-Co V-2 (test code = target nucleic 87209-2) acids are not detected in thi s [...] (test code = [place] 81337-2) not detected in this specimen. Influenza B RT-PCR Negative Negative The Flu B target (test code = [place] 26110-5) not detected in this specimen. RSV by RT-PCR (test Negative Negative The RSV target code = 43096-9) nucleic acid s are not detected in [...] the Act. Fact Sheet for Healthcare Providers:https://w i-[employer]/Docu ments/Xpert%20Xpres s%20SARS%20CoV-2/Fa ct%20Sheets/302-390 2%35XWHZ-FUQ-2%20HE ALTHCARE%20PROVIDER S%20FACT%20SHEET.pd f Fact Sheet for Healthcare Patients:https://[employer]/Docum ents/Xpert%20Xpress %20SARS%20Cov-2/Fac t%20Sheets/302-3801 %46SPMJ-RHB-1%20PAT IENT%20FACT%20SHEET .pdf Lab Interpretation Normal (test code = 13068-2) [facility] (Symptomatic ONLY) 2022-10-31 14:03:24 Test Item Value Reference Interpretation Comments Range SARS-COV2/RT-PCR Negative Negative The SARS-Co V-2 (test code = target nucleic 31167-7) acids are not detected in thi s [...] (test code = [place] re 39188-9) not detected in this specimen. Influenza B RT-PCR Negative Negative The Flu B target (test code = nucleic [place] re 77874-6) not detected in this specimen. RSV by RT-PCR (test Negative Negative The RSV target code = 79896-7) nucleic acid s are not detected in [...] SARS-CoV-2/Flu/RSV by their healthcare provider. Results from [facility] Xpert Xpress SARS-CoV-2/Flu/RSV test should be [...] the Act. Fact Sheet for Healthcare Providers:https://w i-[employer]/Docu ments/Xpert%20Xpres s%20SARS%20CoV-2/Fa ct%20Sheets/302-390 2%75SNWX-MWQ-4%20HE ALTHCARE%20PROVIDER S%20FACT%20SHEET.pd f Fact Sheet for Healthcare Patients:https://[employer]/Docum ents/Xpert%20Xpress %20SARS%20Cov-2/Fac t%20Sheets/302-3801 %87TMSS-BJW-4%20PAT IENT%20FACT%20SHEET .pdf Lab Interpretation Normal (test code = 58335-3) [facility] (Symptomatic ONLY) 2022-10-31 14:03:24 Test Item Value Reference Interpretation Comments Range SARS-COV2/RT-PCR Negative Negative The SARS-Co V-2 (test code = target nucleic 21587-9) acids are not detected in thi s [...] (test code = [place] re 10422-8) not detected in this specimen. Influenza B RT-PCR Negative Negative The Flu B target (test code = [place] re 40672-9) not detected in this specimen. RSV by RT-PCR (test Negative Negative The RSV target code = 47472-3) nucleic acid s are not detected in [...] the Act. Fact Sheet for Healthcare Providers:https://w ww.[employer]/Docu ments/Xpert%20Xpres s%20SARS%20CoV-2/Fa ct%20Sheets/302-390 2%98BEOJ-RVI-1%20HE ALTHCARE%20PROVIDER S%20FACT%20SHEET.pd f Fact Sheet for Healthcare Patients:https://ww w.[employer]/Docum ents/Xpert%20Xpress %20SARS%20Cov-2/Fac t%20Sheets/302-3801 %52IKWL-KOC-2%20PAT IENT%20FACT%20SHEET .pdf Lab Interpretation Normal (test code = 58634-3) [facility]INFLUENZA/RSV [id number] 14:03:24 Test Item Value Reference Range Interpretation Comments SARS-COV2/RT-PCR Negative Negative The SARS-Co V-2 target (test code = nucleic acids a re not 7639720) detected in thi s specimen. Negat yesika [...] individuals amanda pected of COVID-19 by the [facility] ide. INFLUENZA A RT-PCR Negative Negative The Flu A target nucleic (test code = acids are not d etected in 9200763) this specimen. INFLUENZA B RT-PCR Negative Negative The Flu B target nucleic (test code = acids are not d etected in 4725950) this specimen. RSV RT-PCR (test Negative Negative The RSV tar get nucleic code = 4123423) acids are no t detected in this [...] Xpress SARS-CoV-2/Flu/RSV by their healthcareprovider. [facility] Xpert Xpress SARS-CoV-2/Flu/RSV test should be [...] of the Act.Fact Sheet for Healthcare Providers:https ://www.[employer]/Documents/Xpert%20Xpress%20SARS%20CoV-2/Fact%20Sheets/302390 2%09BNBJ-RAK-2%20HEALTHCARE%20PROVIDERS%20FACT%20SHEET.pdfFact Sheet for Healthcare Patients:https://www.[employer]/Docum ents/Xpert%20Xpress%20SARS%20Cov-2/Fact%20Sheets/3023801%14BINA-KKD-1%20PATIENT %20FACT%20SHEET.kwrWYMEOR1082-70-58 12:52:25 Test Item Value Reference Range Interpretation Comments SODIUM (BEAKER) (test code = 381) 135 meq/L 136-145 L Configuration Management Analyst ID - hrhsDCHIPJKCY7421-44-20 12:52:24 Test Item Value Reference Range Interpretation Comments MAGNESIUM (BEAKER) (test code = 2.4 mg/dL 1.6-2.6 627) Configuration Management Analyst ID - esauPOCT-GLUCOSE VHJSK2175-02-02 12:00:51 Test Item Value Reference Range Interpretation Comments POC-GLUCOSE METER 130 mg/dL 70-110 H : TESTED Oscar Art [facility] 6720 (BEAKER) (test code SAVANNAH [facility], = 1538) 89659: Configuration Management Analyst/Techni smiley ID = [id number] for Latonia Connolly B-TYPE NATRIURETIC FACTOR (BNP)2022-10-31 10:43:21 Test Item Value Reference Range Interpretation Comments B-TYPE NATRIURETIC PEPTIDE (WESLEY) 568 pg/mL 0-100 H (test code = 700) Configuration Management Analyst ID - esauVenous doppler legs gxljvcdda9096-83-22 08:29:42PV LAB - Lower Extremities DVT Study Demographics Patient Name IVÁN INIGUEZ Date of Study 10/31/2022 Irineo Age 47 Visit Number [id number] Gender Female Accession Number [id number] Date of 1975 Referring Kathy Zepeda MD Room Number 4913 Physician Tassel Maker Wayne Zavala [facility] Interpreting Bia Herbert MD Physician FellowProcedureType [...] in cm/s ; Di[facility] kiwcgaqvo7625-98-06 08:29:21PV LAB - Upper Extremities Veins Demographics Patient Name IVÁN INIGUEZ Date of Study 10/31/2022L Age 47 Visit Number [id number] Gender Female Accession Number [id number] Date of 1975 Referring Kathy Zepeda MD Room Number 7516 Physician Tassel Maker Wayne Zavala [facility] Interpreting Bia Herbert MD Physician FellowProcedureType [...] in cm/s ; Diameters are measured in [facility] [id number] 05:07:29 Test Item Value Reference Range Interpretation Comments MAGNESIUM (BEAKER) (test code = 1.9 mg/dL 1.6-2.6 627) Configuration Management Analyst ID - [id number] 05:07:29 Test Item Value Reference Range Interpretation Comments PHOSPHORUS (BEAKER) (test code = 3.7 mg/dL 2.3-4.7 604) Configuration Management Analyst ID - ADMINBASIC METABOLIC [id number] 05:07:28 Test Item Value Reference Range Interpretation [...] (test code = 697) EGFR (BEAKER) 55 Interpretati on of eGFR (test code = [...] not appl icable for dialysis patien ts Configuration Management Analyst ID - ADMINCBC W/PLT COUNT & AUTO [id number] 04:47:13 Test Item Value Reference Range Interpretation [...] 0.00-1.00 PERCENT (BEAKER) (test code = 2801) [id number] 23:06:40 Test Item Value Reference Range Interpretation Comments SODIUM (BEAKER) (test code = 381) 133 meq/L 136-145 L Configuration Management Analyst ID - ADMINHIGH SENSITIVITY TROPONIN [id number] 22:59:43 Test Item Value Reference Range Interpretation Comments HIGH SENSITIVITY 92 pg/ml See_Comment H [Automated message] TROPONIN I (test code = The system which 7158132) generated this result transmitted ref erence range: <=17. Th e reference range was not used to int erpret this result as normal/abnormal . Configuration Management Analyst ID - ADMINThe CONCRETE WORKER STAT High Sensitivity Troponin-I results should be used in conjunction with other diagnostic information such as ECG, clinical observations and information, and patientsymptoms to aid in the diagnosis of TX. XR ABDOMEN/KUB 1 VIEW [id number] 18:54:45 [facility] : 1975 Sex: FTECHNIQUE: XR ABDOMEN/KUB 1 VIEW PORTABLEINDICATION: corpak placement.COMPARISON: 10/29/2022FINDINGS:Feeding tube tip projecting over the body of the stomach. No specificevidence for bowel obstruction. Cholecystectomy clips are noted. Supineradiographs are insensitive for detection of free intraperitoneal ai r.IMPRESSION:Feeding tube tip projects over the body of the stomach.Electronically Signed By: Mo Soares10/30/2022 18:56 CDTWorkstation Name: [id number] SENSITIVITY TROPONIN [id number] 17:30:01 Test Item Value Reference Range Interpretation Comments HIGH SENSITIVITY 123 pg/ml See_Comment H [Automated message] TROPONIN I (test code The sy stem which = 3738767) generated this result transmitted ref erence range: <=17. Th e reference range was not used to int erpret this result as normal/abnormal . Configuration Management Analyst ID - BSThe CONCRETE WORKER STAT High Sensitivity Troponin-I results should be used in conjunctionwith other diagnostic information such as ECG, clinical observations and information, and patient symptoms to aid in the diagnosis of TX.Lactic Acid, [id number] 17:25:59 Test Item Value Reference Range Interpretation Comments Lactate, Art (test code = 1.0 mmol/L 0.5-2.0 2874) SUE (test code = SUE) Configuration Management Analyst ID - ADMIN Lab Interpretation (test Normal code = 93777-5) [facility] CenterL[facility], Rzmywgsa4940-05-29 17:25:59 Test Item Value Reference Range Interpretation Comments Lactate, Art (test code = 1.0 mmol/L 0.5-2.0 2874) SUE (test code = SUE) Configuration Management Analyst ID - ADMIN Lab Interpretation (test Normal code = 70875-8) [facility] CenterL[facility] Acid, [id number] 17:25:59 Test Item Value Reference Range Interpretation Comments Lactate, Art (test code = 1.0 mmol/L 0.5-2.0 2874) SUE (test code = SUE) Configuration Management Analyst ID - ADMIN Lab Interpretation (test Normal code = 30184-8) [facility] CenterLactic Acid, [id number] 17:25:59 Test Item Value Reference Range Interpretation Comments Lactate, Art (test code = 1.0 mmol/L 0.5-2.0 2874) SUE (test code = SUE) Configuration Management Analyst ID - ADMIN Lab Interpretation (test Normal code = 98594-5) [facility] CenterLactic Acid, [id number] 17:25:59 Test Item Value Reference Range Interpretation Comments Lactate, Art (test code = 1.0 mmol/L 0.5-2.0 2874) SUE (test code = SUE) Configuration Management Analyst ID - ADMIN Lab Interpretation (test Normal code = 39693-4) [facility] CenterL[facility], [id number] 17:25:59 Test Item Value Reference Range Interpretation Comments Lactate, Art (test code = 1.0 mmol/L 0.5-2.0 2874) SUE (test code = SUE) Configuration Management Analyst ID - ADMIN Lab Interpretation (test Normal code = 40436-5) [facility] CenterLACTIC ACID, [id number] 17:25:59 Test Item Value Reference Range Interpretation Comments LACTATE BLOOD ARTERIAL (2) 1.0 mmol/L 0.5-2.0 (BEAKER) (test code = 2874) Configuration Management Analyst ID - [id number] 17:21:36 Test Item Value Reference Range Interpretation Comments SODIUM (BEAKER) (test code = 381) 136 meq/L 136-145 Configuration Management Analyst ID - ADMINBLOOD GAS, [id number] 14:46:08 Test Item Value Reference Range Interpretation [...] FIO2 (BEAKER) (test code = 1819) 100.0 [id number] 12:47:53 Test Item Value Reference Range Interpretation Comments SODIUM (BEAKER) (test code = 381) 137 meq/L 136-145 Configuration Management Analyst ID - JSLACTIC ACID, [id number] 12:47:37 Test Item Value Reference Range Interpretation Comments LACTATE BLOOD 2.3 mmol/L 0.5-2.0 H Specimen sligh tly ARTERIAL (2) (BEAKER) hemoly zed (test code = 2874) Configuration Management Analyst ID - JSBLOOD GAS, [id number] 12:23:19 Test Item Value Reference Range Interpretation [...] FIO2 (BEAKER) (test code = 1819) 100.0 [id number] 11:15:25 Test Item Value Reference Range Interpretation Comments PROCALCITONIN (BEAKER) (test code 0.05 ng/mL <0.05 H = 3036) SEPSIS RISK (ng/mL)Low: 0.05-0.50Intermediate: 0.51-2.00High: >=2.01HIGH SENSITIVITY TROPONIN [id number] 11:10:59 Test Item Value Reference Range Interpretation Comments HIGH SENSITIVITY 139 pg/ml See_Comment H [Automated message] TROPONIN I (test code The sy stem which = 1599537) generated this result transmitted ref erence range: <=17. Th e reference range was not used to int erpret this result as normal/abnormal . Configuration Management Analyst ID - JSThe CONCRETE WORKER STAT High Sensitivity Troponin-I results should be used in conjunctionwith other diagnostic information such as ECG, clinical observations and information, and patient symptoms to aid in the diagnosis of TX.XR CHEST 1 VIEW PORTABLE / [id number] 10:47:01 [facility] 1975 Sex: FCLINICAL HISTORY: desaturationTECHNIQUE: 1 view of the chest.COMPARISON: 10/29/2022IMPRESSION:ETT no longer seen. New feeding tube below the diaphragm. Right centralline remains in the right atrium. There are mildly increased bilaterallower lung airspace opacities with blunting of both costophrenic angles.The cardiomediastinal silhouette is magnified by technique.Electronically Signed By: Yeyo Mills10/30/2022 10:49 CDTWorkstation Name: [id number] BRAIN WITHOUT IV [id number] 09:21:03 [facility] : 1975 [...] Signed By: Luís Mclain10/30/2022 09:23 CDTWorkstation Name: [id number] 04:21:01 Test Item Value Reference Range Interpretation Comments PHOSPHORUS (BEAKER) (test code = 3.2 mg/dL 2.3-4.7 604) Configuration Management Analyst ID - EMBASIC METABOLIC [id number] 04:21:00 Test Item Value Reference Range Interpretation [...] not appl icable for dialysis patien ts Configuration Management Analyst ID - [id number] 04:21:00 Test Item Value Reference Range Interpretation Comments MAGNESIUM (BEAKER) (test code = 1.7 mg/dL 1.6-2.6 627) Configuration Management Analyst ID - EMCBC W/PLT COUNT & AUTO [id number] 03:30:03 Test Item Value Reference Range Interpretation [...] 0.00-1.00 PERCENT (BEAKER) (test code = 2801) [id number] 00:34:48 Test Item Value Reference Range Interpretation Comments SODIUM (BEAKER) (test code = 381) 137 meq/L 136-145 Configuration Management Analyst ID - ADMINXR ABDOMEN/KUB 1 VIEW [id number] 18:55:43 [facility] : 1975 Sex: FTECHNIQUE: [...] Signed By: Mo Soares10/29/2022 18:57 CDTWorkstation Name: [id number] 2022-10-29 18:31:20 Test Item Value Reference Range Interpretation Comments SODIUM (BEAKER) (test code = 381) 138 meq/L 136-145 Configuration Management Analyst ID - ADMINCreatinine, random [id number] 15:21:04 Test Item Value Reference Range Interpretation Comments Creatinine, Ur 24.5 mg/dL (test code = 2161-8) SUE (test code = Reference Range: No SUE) NormalsOperator ID - ADMIN [facility] CenterCreatinine, random [id number] 15:21:04 Test Item Value Reference Range Interpretation Comments Creatinine, Ur 24.5 mg/dL (test code = 2161-8) SUE (test code = Reference Range: No SUE) NormalsOperator ID - ADMIN [facility] CenterCreatinine, random [id number] 15:21:04 Test Item Value Reference Range Interpretation Comments Creatinine, Ur 24.5 mg/dL (test code = 2161-8) SUE (test code = Reference Range: No SUE) NormalsOperator ID - ADMIN [facility] CenterCreatinine, random [id number] 15:21:04 Test Item Value Reference Range Interpretation Comments Creatinine, Ur 24.5 mg/dL (test code = 2161-8) SUE (test code = Reference Range: No SUE) NormalsOperator ID - ADMIN [facility] CenterCreatinine, random [id number] 15:21:04 Test Item Value Reference Range Interpretation Comments Creatinine, Ur 24.5 mg/dL (test code = 2161-8) SUE (test code = Reference Range: No SUE) NormalsOperator ID - ADMIN [facility] CenterCreatinine, random [id number] 15:21:04 Test Item Value Reference Range Interpretation Comments Creatinine, Ur 24.5 mg/dL (test code = 2161-8) SUE (test code = Reference Range: No SUE) NormalsOperator ID - ADMIN [facility] CenterCREATININE, RANDOM [id number] 15:21:04 Test Item Value Reference Range Interpretation Comments CREATININE URINE (BEAKER) (test 24.5 mg/dL code = 375) Reference Range: No NormalsOperator ID - ADMINRapid drug screen, [id number] 14:06:15 Test Item Value Reference Range Interpretation Comments Barbiturate Screen Negative Negative (test code = 27812-9) Benzodiazepine Screen Negative Negative (test code = 49797-4) Cocaine (Metab.) Negative Negative Screen (test code = 3397-7) Methadone Screen (test Negative Negative code = 35811-5) Opiate Screen (test Negative Negative code = 21240-4) Cannabinoid Screen Negative Negative (test code = 35924-0) Amph/Methamph Screen Positive Negative A (test code = 84545-9) Phencyclidine Screen Negative Negative (test code = 58209-0) pH, UA (test code = 6.0 5.0-8.0 5803-2) SUE (test code = SUE) DRUG CUTOFF CONC.Cocaine 300 ng/mL Cannabinoid 50 ng/mLBenzodiazepine 200 ng/mLBarbiturate 200 ng/mLPhencyclidine 25 ng/mLOpiate 300 ng/mLMethadone 300 ng/mLAmphetamine/ 1000 ng/mL Methamphetamine This assay provides an unconfirmed qualitative test result for the clinical management of patients in emergency situations. Chain of custody not maintained. Some tpiz-igp-nitddyn medications, as well as adulterants, may cause inaccurate results. Clinical correlation should be applied. A more comprehensive drug screen or confirmation of a detected drug may be performed upon request.Configuration Management Analyst ID - JSOperator ID - [auto] Lab Interpretation Abnormal (test code = 98056-1) [facility] CenterRapid drug screen, [id number] 14:06:15 Test Item Value Reference Range Interpretation Comments Barbiturate Screen Negative Negative (test code = 22303-1) Benzodiazepine Screen Negative Negative (test code = 40796-9) Cocaine (Metab.) Negative Negative Screen (test code = 3397-7) Methadone Screen (test Negative Negative code = 87867-1) Opiate Screen (test Negative Negative code = 49314-0) Cannabinoid Screen Negative Negative (test code = 07676-7) Amph/Methamph Screen Positive Negative A (test code = 62574-1) Phencyclidine Screen Negative Negative (test code = 32698-0) pH, UA (test code = 6.0 5.0-8.0 5803-2) SUE (test code = SUE) DRUG CUTOFF CONC.Cocaine 300 ng/mL Cannabinoid 50 ng/mLBenzodiazepine 200 ng/mLBarbiturate 200 ng/mLPhencyclidine 25 ng/mLOpiate 300 ng/mLMethadone 300 ng/mLAmphetamine/ 1000 ng/mL Methamphetamine This assay provides an unconfirmed qualitative test result for the clinical management of patients in emergency situations. Chain of custody not maintained. Some ixpc-ltk-hwinyuz medications, as well as adulterants, may cause inaccurate results. Clinical correlation should be applied. A more comprehensive drug screen or confirmation of a detected drug may be performed upon request.Configuration Management Analyst ID - JSOperator ID - [auto] Lab Interpretation Abnormal (test code = 45737-8) [facility] CenterR[facility] screen, [id number] 14:06:15 Test Item Value Reference Range Interpretation Comments Barbiturate Screen Negative Negative (test code = 18983-4) Benzodiazepine Screen Negative Negative (test code = 53673-8) Cocaine (Metab.) Negative Negative Screen (test code = 3397-7) Methadone Screen (test Negative Negative code = 91845-3) Opiate Screen (test Negative Negative code = 50022-2) Cannabinoid Screen Negative Negative (test code = 20841-2) Amph/Methamph Screen Positive Negative A (test code = 63663-3) Phencyclidine Screen Negative Negative (test code = 94799-9) pH, UA (test code = 6.0 5.0-8.0 5803-2) SUE (test code = SUE) DRUG CUTOFF CONC.Cocaine 300 ng/mL Cannabinoid 50 ng/mLBenzodiazepine 200 ng/mLBarbiturate 200 ng/mLPhencyclidine 25 ng/mLOpiate 300 ng/mLMethadone 300 ng/mLAmphetamine/ 1000 ng/mL Methamphetamine This assay provides an unconfirmed qualitative test result for the clinical management of patients in emergency situations. Chain of custody not maintained. Some efvn-qiq-darvomk medications, as well as adulterants, may cause inaccurate results. Clinical correlation should be applied. A more comprehensive drug screen or confirmation of a detected drug may be performed upon request.Configuration Management Analyst ID - JSOperator ID - [auto] Lab Interpretation Abnormal (test code = 54261-0) [facility] CenterR[facility] screen, [id number] 14:06:15 Test Item Value Reference Range Interpretation Comments Barbiturate Screen Negative Negative (test code = 06455-7) Benzodiazepine Screen Negative Negative (test code = 70686-6) Cocaine (Metab.) Negative Negative Screen (test code = 3397-7) Methadone Screen (test Negative Negative code = 58427-2) Opiate Screen (test Negative Negative code = 08226-2) Cannabinoid Screen Negative Negative (test code = 94201-9) Amph/Methamph Screen Positive Negative A (test code = 20417-3) Phencyclidine Screen Negative Negative (test code = 34919-8) pH, UA (test code = 6.0 5.0-8.0 5803-2) SUE (test code = SUE) DRUG CUTOFF CONC.Cocaine 300 ng/mL Cannabinoid 50 ng/mLBenzodiazepine 200 ng/mLBarbiturate 200 ng/mLPhencyclidine 25 ng/mLOpiate 300 ng/mLMethadone 300 ng/mLAmphetamine/ 1000 ng/mL Methamphetamine This assay provides an unconfirmed qualitative test result for the clinical management of patients in emergency situations. Chain of custody not maintained. Some jkxk-nxe-fxrliev medications, as well as adulterants, may cause inaccurate results. Clinical correlation should be applied. A more comprehensive drug screen or confirmation of a detected drug may be performed upon request.Configuration Management Analyst ID - JSOperator ID - [auto] Lab Interpretation Abnormal (test code = 27783-6) [facility] CenterR[facility] screen, [id number] 14:06:15 Test Item Value Reference Range Interpretation Comments Barbiturate Screen Negative Negative (test code = 91349-6) Benzodiazepine Screen Negative Negative (test code = 99939-2) Cocaine (Metab.) Negative Negative Screen (test code = 3397-7) Methadone Screen (test Negative Negative code = 84680-9) Opiate Screen (test Negative Negative code = 42022-0) Cannabinoid Screen Negative Negative (test code = 20703-5) Amph/Methamph Screen Positive Negative A (test code = 32622-7) Phencyclidine Screen Negative Negative (test code = 13076-7) pH, UA (test code = 6.0 5.0-8.0 5803-2) SUE (test code = SUE) DRUG CUTOFF CONC.Cocaine 300 ng/mL Cannabinoid 50 ng/mLBenzodiazepine 200 ng/mLBarbiturate 200 ng/mLPhencyclidine 25 ng/mLOpiate 300 ng/mLMethadone 300 ng/mLAmphetamine/ 1000 ng/mL Methamphetamine This assay provides an unconfirmed qualitative test result for the clinical management of patients in emergency situations. Chain of custody not maintained. Some yyhq-qwg-iljvume medications, as well as adulterants, may cause inaccurate results. Clinical correlation should be applied. A more comprehensive drug screen or confirmation of a detected drug may be performed upon request.Configuration Management Analyst ID - JSOperator ID - [auto] Lab Interpretation Abnormal (test code = 21640-4) [facility] CenterR[facility] screen, [id number] 14:06:15 Test Item Value Reference Range Interpretation Comments Barbiturate Screen Negative Negative (test code = 49513-3) Benzodiazepine Screen Negative Negative (test code = 13163-8) Cocaine (Metab.) Negative Negative Screen (test code = 3397-7) Methadone Screen (test Negative Negative code = 38270-7) Opiate Screen (test Negative Negative code = 21642-1) Cannabinoid Screen Negative Negative (test code = 01261-4) Amph/Methamph Screen Positive Negative A (test code = 03341-9) Phencyclidine Screen Negative Negative (test code = 88280-7) pH, UA (test code = 6.0 5.0-8.0 5803-2) SUE (test code = SUE) DRUG CUTOFF CONC.Cocaine 300 ng/mL Cannabinoid 50 ng/mLBenzodiazepine 200 ng/mLBarbiturate 200 ng/mLPhencyclidine 25 ng/mLOpiate 300 ng/mLMethadone 300 ng/mLAmphetamine/ 1000 ng/mL Methamphetamine This assay provides an unconfirmed qualitative test result for the clinical management of patients in emergency situations. Chain of custody not maintained. Some cfdn-vfw-zdregia medications, as well as adulterants, may cause inaccurate results. Clinical correlation should be applied. A more comprehensive drug screen or confirmation of a detected drug may be performed upon request.Configuration Management Analyst ID - JSOperator ID - [auto] Lab Interpretation Abnormal (test code = 32318-1) [facility] CenterR[facility]ID DRUG SCREEN, [id number] 14:06:15 Test Item Value Reference Range Interpretation [...] situations. Chain of custody not maintained. Some asot-qhz-dvszgib medications, as well as adulterants, may cause inaccurate results. Clinical correlation should be applied. A more comprehensive drug screen or confirmation of a detected drug may be performed upon request.Configuration Management Analyst ID - JSOperator ID - [auto] HEMOGLOBIN [id number] 13:23:17 Test Item Value Reference Range Interpretation [...] 5.7- 6.4% indicates increased risk for diabetes (prediabetes)."Configuration Management Analyst ID - ADMOperator ID - ADMCTA [id number] 13:16:45CT BRAIN WITHOUT IV CONTRAST, CTA CAROTID, CTA BRAINBRAIN CT WITHOUT CONTRAST INDICATION: Unlisted Reason for Exam, intraparenchymal hematoma COMPARISON: None TECHNIQUE:Rapid acquisition spiral images were obtained between the aortic archand the cranial vertex during intravenous contrast infusion toreconstruct axial images and angiographic 3D maximum intensityprojections (MIP). 3-D volumetric reformatted images were created at [employer] workstation. Precontrast images of the brain were [...] which mayrepresent atelectasis, pneumonia or pulmonary edema.[facility] CenterCTA [id number] 13:16:45CT BRAIN WITHOUT IV CONTRAST, CTA CAROTID, CTA BRAINBRAIN CT WITHOUT CONTRAST INDICATION: Unlisted Reason for Exam, intraparenchymal hematoma COMPARISON: None TECHNIQUE:Rapid acquisition spiral images were obtained between the aortic archand the cranial vertex during intravenous contrast infusion toreconstruct axial images and angiographic 3D maximum intensityprojections (MIP). 3-D volumetric reformatted images were created at [employer] workstation. Precontrast images of the brain were [...] which mayrepresent atelectasis, pneumonia or pulmonary edema.[facility] CenterCTA [id number] 13:16:45 [facility] : 1975 Sex: FCT BRAIN WITHOUT IV CONTRAST, CTA CAROTID, CTA BRAINBRAIN CT WITHOUT CONTRASTINDICATION: Unlisted Reason for Exam, intraparenchymal hematomaCOMPARISON: NoneTECHNIQUE:Rapid acquisition spiral images were obtained between the aortic archand the cranial vertex during intravenous contrast infusion toreconstruct axial images and angiographic 3D maximum intensityprojections (MIP). 3-D volumetric reformatted images were created at [employer] workstation. Precontrast images of the brain were [...] Signed By: Luís Mclain10/29/2022 13:18 CDTWorkstation Name: [id number] BRAIN WITHOUT IV [id number] 13:16:45 [facility] : 1975 Sex: FCT BRAIN WITHOUT IV CONTRAST, CTA CAROTID, CTA BRAINBRAIN CT WITHOUT CONTRASTINDICATION: Unlisted Reason for Exam, intraparenchymal hematomaCOMPARISON: NoneTECHNIQUE:Rapid acquisition spiral images were obtained between the aortic archand the cranial vertex during intravenous contrast infusion toreconstruct axial images and angiographic 3D maximum intensityprojections (MIP). 3-D volumetric reformatted images were created at [employer] workstation. Precontrast images of the brain were [...] Signed By: Luís Mclain10/29/2022 13:18 CDTWorkstation Name: [id number] 13:16:45[facility] : 1975 Sex: FCT BRAIN WITHOUT IV CONTRAST, CTA CAROTID, CTA BRAINBRAIN CT WITHOUT CONTRASTINDICATION: Unlisted Reason for Exam, intraparenchymal hematomaCOMPARISON: NoneTECHNIQUE:Rapid acquisition spiral images were obtained between the aortic archand the cranial vertex during intravenous contrast infusion toreconstruct axial images and angiographic 3D maximum intensityprojections (MIP). 3-D volumetric reformatted images were created at [employer] workstation. Precontrast images of the brain were [...] Signed By: Luís Mclain10/29/2022 13:18 CDTWorkstation Name: [id number], QUANTITATIVE, [id number] 13:15:24 Test Item Value Reference Range Interpretation Comments GONADOTROPIN, CHORIONIC (HCG) QUANT < mIU/mL 0-10 (WESLEY) (test code = 649) Non- Females: <10 mIU/mL Females: Gestation Age Reference Range(mIU/mL) 0.2-1 Week 5-50 1-2 Weeks 50-500 2-3 Weeks 100-5,000 3-4 Weeks 500-10,000 4-5 Weeks 1,000-50,000 5-6 Weeks 10,000-100,000 6-8 Weeks 15,000- 200,000 2-3 Months 10,000-100,000 Configuration Management Analyst ID - [employer], [id number] 13:07:55 Test Item Value Reference Range Interpretation Comments Osmolality, Ur (test code 529 See_Comment [ Automated message] = 8488-1) The system to-BBB generated this result transmitted ref erence range: 50-1,200 mOsm/kg mOsm/kg . The reference range was not used to int erpret this result as normal/abnormal . Lab Interpretation (test Normal code = 08874-0) [facility], [id number] 13:07:55 Test Item Value Reference Range Interpretation Comments Osmolality, Ur (test code 529 See_Comment [ Automated message] = 2695-5) The system to-BBB generated this result transmitted ref erence range: 50-1,200 mOsm/kg mOsm/kg . The reference range was not used to int erpret this result as normal/abnormal . Lab Interpretation (test Normal code = 49847-5) [facility], [id number] 13:07:55 Test Item Value Reference Range Interpretation Comments Osmolality, Ur (test code 529 See_Comment [ Automated message] = 2695-5) The system to-BBB generated this result transmitted ref erence range: 50-1,200 mOsm/kg mOsm/kg . The reference range was not used to int erpret this result as normal/abnormal . Lab Interpretation (test Normal code = 77940-6) [facility], [id number] 13:07:55 Test Item Value Reference Range Interpretation Comments Osmolality, Ur (test code 529 See_Comment [ Automated message] = 2695-5) The system to-BBB generated this result transmitted ref erence range: 50-1,200 mOsm/kg mOsm/kg . The reference range was not used to int erpret this result as normal/abnormal . Lab Interpretation (test Normal code = 73521-1) [facility], [id number] 13:07:55 Test Item Value Reference Range Interpretation Comments Osmolality, Ur (test code 529 See_Comment [ Automated message] = 2695-5) The system to-BBB generated this result transmitted ref erence range: 50-1,200 mOsm/kg mOsm/kg . The reference range was not used to int erpret this result as normal/abnormal . Lab Interpretation (test Normal code = 86645-9) [facility], [id number] 13:07:55 Test Item Value Reference Range Interpretation Comments Osmolality, Ur (test code 529 See_Comment [ Automated message] = 2695-5) The system [place] h generated this result transmitted ref erence range: 50-1,200 mOsm/kg mOsm/kg . The reference range was not used to int erpret this result as normal/abnormal . Lab Interpretation (test Normal code = 85944-5) [facility] CenterOSMOLALITY, [id number] 13:07:55 Test Item Value Reference Range Interpretation Comments OSMOLALITY URINE 529 mOsm/kg See_Comment [Automated message] (BEAKER) (test code = The sy stem which 614) generated this result transmitted ref erence range: 50-1,200 mOsm/kg. The reference range was not used to int erpret this result as normal/abnormal . Urea Nitrogen, random [id number] 12:57:04 Test Item Value Reference Range Interpretation Comments Urea Nitrogen, Ur 186 mg/dL (test code = 3095-7) SUE (test code = Reference Range: No SUE) NormalsOperator ID - [facility], random [id number] 12:57:04 Test Item Value Reference Range Interpretation Comments Urea Nitrogen, Ur 186 mg/dL (test code = 3095-7) SUE (test code = Reference Range: No SUE) NormalsOperator ID - [facility] CenterU[facility] Nitrogen, random [id number] 12:57:04 Test Item Value Reference Range Interpretation Comments Urea Nitrogen, Ur 186 mg/dL (test code = 3095-7) SUE (test code = Reference Range: No SUE) NormalsOperator ID - [facility] CenterU[facility] Nitrogen, random [id number] 12:57:04 Test Item Value Reference Range Interpretation Comments Urea Nitrogen, Ur 186 mg/dL (test code = 3095-7) SUE (test code = Reference Range: No SUE) NormalsOperator ID - [facility] CenterU[facility]itrogen, random [id number] 12:57:04 Test Item Value Reference Range Interpretation Comments Urea Nitrogen, Ur 186 mg/dL (test code = 3095-7) SUE (test code = Reference Range: No SUE) NormalsOperator ID - [facility] CenterU[facility] Nitrogen, random [id number] 12:57:04 Test Item Value Reference Range Interpretation Comments Urea Nitrogen, Ur 186 mg/dL (test code = 3095-7) SUE (test code = Reference Range: No SUE) NormalsOperator ID - [facility] CenterUREA NITROGEN, RANDOM [id number] 12:57:04 Test Item Value Reference Range Interpretation Comments UREA NITROGEN URINE (BEAKER) (test 186 mg/dL code = 538) Reference Range: No NormalsOperator ID - Sodium, random [id number] 12:57:03 Test Item Value Reference Range Interpretation Comments Sodium Urine (test 155 meq/L code = 2955-3) SUE (test code = Reference Range: No SUE) NormalsOperator ID - [facility] Centerodium, random [id number] 12:57:03 Test Item Value Reference Range Interpretation Comments Sodium Urine (test 155 meq/L code = 2955-3) SUE (test code = Reference Range: No SUE) NormalsOperator ID - [facility] Centerodium, random [id number] 12:57:03 Test Item Value Reference Range Interpretation Comments Sodium Urine (test 155 meq/L code = 2955-3) SUE (test code = Reference Range: No SUE) NormalsOperator ID - [facility] Centerodium, random [id number] 12:57:03 Test Item Value Reference Range Interpretation Comments Sodium Urine (test 155 meq/L code = 2955-3) SUE (test code = Reference Range: No SUE) NormalsOperator ID - [facility] Centerodium, random [id number] 12:57:03 Test Item Value Reference Range Interpretation Comments Sodium Urine (test 155 meq/L code = 2955-3) SUE (test code = Reference Range: No SUE) NormalsOperator ID - [facility] Centerodium, random [id number] 12:57:03 Test Item Value Reference Range Interpretation Comments Sodium Urine (test 155 meq/L code = 2955-3) SUE (test code = Reference Range: No SUE) NormalsOperator ID - [facility] CenterODIUM, RANDOM [id number] 12:57:03 Test Item Value Reference Range Interpretation Comments SODIUM URINE (BEAKER) (test code = 155 meq/L 243) Reference Range: No NormalsOperator ID - JSOSMOLALITY, [id number] 12:52:21 Test Item Value Reference Range Interpretation Comments OSMOLALITY, SERUM (BEAKER) (test 290 mOsm/kg 275-295 code = 615) [id number] 12:52:14 Test Item Value Reference Range Interpretation Comments SODIUM (BEAKER) (test code = 381) 140 meq/L 136-145 Configuration Management Analyst ID - MARCOPregnancy Screen, [id number] 09:52:55 Test Item Value Reference Range Interpretation Comments Preg Test, Ur (test code = 2112-1) Negative Negative Lab Interpretation (test code = Normal 37112-1) [facility], [id number] 09:52:55 Test Item Value Reference Range Interpretation Comments Preg Test, Ur (test code = 2112-1) Negative Negative Lab Interpretation (test code = Normal 20433-0) [facility] CenterPregnancy Screen, [id number] 09:52:55 Test Item Value Reference Range Interpretation Comments Preg Test, Ur (test code = 2112-1) Negative Negative Lab Interpretation (test code = Normal 12977-1) [facility] CenterPregnancy Screen, [id number] 09:52:55 Test Item Value Reference Range Interpretation Comments Preg Test, Ur (test code = 2112-1) Negative Negative Lab Interpretation (test code = Normal 99312-6) [facility] CenterPregnancy Screen, [id number] 09:52:55 Test Item Value Reference Range Interpretation Comments Preg Test, Ur (test code = 2112-1) Negative Negative Lab Interpretation (test code = Normal 01328-7) [facility] CenterPregnancy Screen, [id number] 09:52:55 Test Item Value Reference Range Interpretation Comments Preg Test, Ur (test code = 2112-1) Negative Negative Lab Interpretation (test code = Normal 91905-7) [facility] CenterPREGNANCY SCREEN, [id number] 09:52:55 Test Item Value Reference Range Interpretation Comments TEST URINE (BEAKER) (test Negative Negative code = 583) BLOOD GAS, [id number] 08:02:40 Test Item Value Reference Range Interpretation [...] (BEAKER) (test code = 1819) 40.0 T4, [id number] 06:13:37 Test Item Value Reference Range Interpretation Comments FREE T4 (BEAKER) (test code = 655) 0.90 ng/dL 0.70-1.48 Configuration Management Analyst ID - ADMINTSH/FREE T4 IF [id number] 05:34:42 Test Item Value Reference Range Interpretation Comments THYROID STIMULATING HORMONE 6.331 uIU/mL 0.350-4.940 H (BEAKER) (test code = 772) Configuration Management Analyst ID - [id number] 05:26:57 Test Item Value Reference Range Interpretation Comments MAGNESIUM (BEAKER) (test code = 1.8 mg/dL 1.6-2.6 627) Configuration Management Analyst ID - [id number] 05:26:57 Test Item Value Reference Range Interpretation Comments PHOSPHORUS (BEAKER) (test code = 3.0 mg/dL 2.3-4.7 604) Configuration Management Analyst ID - MARCOCOMPREHENSIVE METABOLIC [id number] 05:26:56 Test Item Value Reference Range Interpretation [...] not appl icable for dialysis patien ts Configuration Management Analyst ID - MARCOXR CHEST 1 VIEW PORTABLE / [id number] 05:03:50 [facility] Irineo : 1975 [...] Signed By: Jaziel Monte10/29/2022 05:05 CDTWorkstation Name: [id number] 04:56:04 Test Item Value Reference Range Interpretation Comments PARTIAL THROMBOPLASTIN TIME 30.4 seconds 22.5-36.0 (BEAKER) (test code = 760) PROTHROMBIN TIME/[id number] 04:55:22 Test Item Value Reference Range Interpretation Comments PROTIME (BEAKER) 13.6 seconds 11.9-14.2 (test code = 759) INR (BEAKER) (test 1.06 See_Comment [Automat ed message] code = 370) The system to-BBB generated this result transmitted ref erence range: <=5.90. The reference range was not used to int erpret this result as normal/abnormal . RECOMMENDED COUMADIN/WARFARIN INR THERAPY RANGESSTANDARD DOSE: 2.0 - 3.0 Includes: PROPHYLAXIS for venous thrombosis, systemic embolization; TREATMENT for venous thrombosis and/or pulmonary embolus.HIGH RISK: Target INR is 2.5-3.5 for patients with mechanical heart valves.CBC W/PLT COUNT & AUTO [id number] 04:50:18 Test Item Value Reference Range Interpretation [...] (BEAKER) (test code = 2801) BLOOD GAS, [id number] 04:03:20 Test Item Value Reference Range Interpretation [...] (BEAKER) (test code = 1819) 60.0 CALCIUM, [id number] 03:59:22 Test Item Value Reference Range Interpretation Comments CALCIUM IONIZED (BEAKER) (test 1.09 mmol/L 1.12-1.27 L code = 698) PH, BLOOD (BEAKER) (test code = 7.33 1810) [facility] [id number] 03:47:51Murray Elise NP 10/29/2022 3:48 AMCentral Line [...] to verify the correct patient, procedure, equipment, customer support assistant and site/side marked as required.Indications:vascular accessAnesthesia: local [...] NoneComplications: NoneType of anesthesia: NoneGrafts or Implants: [facility] [id number] 03:47:51Murray Elise NP 10/29/2022 3:48 AMCentral Line [...] to verify the correct patient, procedure, equipment, customer support assistant and site/side marked as required.Indications:vascular accessAnesthesia: local [...] NoneComplications: NoneType of anesthesia: NoneGrafts or Implants: [facility] Line 2022-10-29 03:47:51Murray Elise NP 10/29/2022 [...] to verify the correct patient, procedure, equipment, customer support assistant and site/side marked as required.Indications:vascular accessAnesthesia: local [...] NoneType of anesthesia: NoneGrafts or Implants: NoneCH[facility] CenterCentral [id number] 03:47:51Murray Elise NP 10/29/2022 3:48 AMCentral Line [...] to verify the correct patient, procedure, equipment, customer support assistant and site/side marked as required.Indications:vascular accessAnesthesia: local [...] NoneType of anesthesia: NoneGrafts or Implants: NoneCH[facility] CenterCentral Line 2022-10-29 03:47:51Murray Elise NP [...] to verify the correct patient, procedure, equipment, customer support assistant and site/side marked as required.Indications:vascular accessAnesthesia: local [...] NoneComplications: NoneType of anesthesia: NoneGrafts or Implants: [facility] [id number] 03:47:51Murray Elise NP 10/29/2022 3:48 AMCentral Line [...] to verify the correct patient, procedure, equipment, customer support assistant and site/side marked as required.Indications:vascular accessAnesthesia: local [...] NoneComplications: NoneType of anesthesia: NoneGrafts or Implants: [facility] CenterInsert Arterial [id number] 03:46:45Murray Elise NP 10/29/2022 3:47 AMInsert Arterial [...] to verify the correct patient, procedure, equipment, customer support assistant and site/side marked as required.Preparation: Patient was prepped and draped in the usual sterile fashion.Indications: multiple ABGs and hemodynamic monitoringLocation: right radial Anesthesia:Local Anesthetic: lidocaine 2% without epinephrineAllen's test normal: yesNeedle gauge: 18Seldinger technique: Seldinger technique usedNumber of attempts: 1Post-procedure: line sutured and dressing appliedPost-procedure CMS: normalPatienttolerance: patient tolerated the procedure well with no immediate complicationsCHI [facility] Insert Arterial [id number] 03:46:45Murray Elise NP 10/29/2022 3:47 AMInsert Arterial [...] to verify the correct patient, procedure, equipment, customer support assistant and site/side marked as required.Preparation: Patient was prepped and draped in the usual sterile fashion.Indications: multiple ABGs and hemodynamic monitoringLocation: right radial Anesthesia:Local Anesthetic: lidocaine 2% without epinephrineAllen's test normal: yesNeedle gauge: 18Seldinger technique: Seldinger technique usedNumber of attempts: 1Post-procedure: line sutured and dressing appliedPost-procedure CMS: normalPatienttolerance: patient tolerated the procedure well with no immediate complicationsCHI [facility] Insert Arterial [id number] 03:46:45Murray Elise NP 10/29/2022 3:47 AMInsert Arterial [...] to verify the correct patient, procedure, equipment, customer support assistant and site/side marked as required.Preparation: Patient was prepped and draped in the usual sterile fashion.Indications: multiple ABGs and hemodynamic monitoringLocation: right radial Anesthesia:Local Anesthetic: lidocaine 2% without epinephrineAllen's test normal: yesNeedle gauge: 18Seldinger technique: Seldinger technique usedNumber of attempts: 1Post-procedure: line sutured and dressing appliedPost-procedure CMS: normalPatienttolerance: patient tolerated the procedure well with no immediate complicationsCHI [facility] Insert Arterial [id number] 03:46:45Murray Elise NP 10/29/2022 3:47 AMInsert Arterial [...] to verify the correct patient, procedure, equipment, customer support assistant and site/side marked as required.Preparation: Patient was prepped and draped in the usual sterile fashion.Indications: multiple ABGs and hemodynamic monitoringLocation: right radial Anesthesia:Local Anesthetic: lidocaine 2% without epinephrineAllen's test normal: yesNeedle gauge: 18Seldinger technique: Seldinger technique usedNumber of attempts: 1Post-procedure: line sutured and dressing appliedPost-procedure CMS: normalPatienttolerance: patient tolerated the procedure well with no immediate complicationsCHI [facility] Insert Arterial [id number] 03:46:45Murray Elise NP 10/29/2022 3:47 AMInsert Arterial [...] to verify the correct patient, procedure, equipment, customer support assistant and site/side marked as required.Preparation: Patient was prepped and draped in the usual sterile fashion.Indications: multiple ABGs and hemodynamic monitoringLocation: right radial Anesthesia:Local Anesthetic: lidocaine 2% without epinephrineAllen's test normal: yesNeedle gauge: 18Seldinger technique: Seldinger technique usedNumber of attempts: 1Post-procedure: line sutured and dressing appliedPost-procedure CMS: normalPatienttolerance: patient tolerated the procedure well with no immediate complicationsCHI [facility] Insert Arterial [id number] 03:46:45Murray Elise NP 10/29/2022 3:47 AMInsert Arterial [...] to verify the correct patient, procedure, equipment, customer support assistant and site/side marked as required.Preparation: Patient was prepped and draped in the usual sterile fashion.Indications: multiple ABGs and hemodynamic monitoringLocation: right radial Anesthesia:Local Anesthetic: lidocaine 2% without epinephrineAllen's test normal: yesNeedle gauge: 18Seldinger technique: Seldinger technique usedNumber of attempts: 1Post-procedure: line sutured and dressing appliedPost-procedure CMS: normalPatienttolerance: patient tolerated the procedure well with no immediate complicationsK[facility] CCV-[id number] 00:00:00Ordered by an unspecified provider.[facility] CenterEKG-[id number] 00:00:00Ordered by an unspecified provider. [facility] CenterEKG-[id number] 00:00:00Ordered by an unspecified provider.[facility] CenterEKG-[id number] 00:00:00 Ordered by an unspecified provider.[facility] CenterEKG-SCANNED 2022-10-29 00:00:00Ordered by an unspecified provider.[facility] CenterEKG-[id number] 00:00:00Ordered by an unspecified provider.[facility] CenterFungus culture + [id number] 08:28:10 Test Item Value Reference Range Interpretation Comments Result (test code = No fungus isolated in 6463-4) 28 days Fungus Smear (test No fungal elements seen code = 1406) [facility] CenterFungus culture + [id number] 08:28:10 Test Item Value Reference Range Interpretation Comments Result (test code = No fungus isolated in 6463-4) 28 days Fungus Smear (test No fungal elements seen code = 1406) [facility] CenterFungus culture + [id number] 08:28:10 Test Item Value Reference Range Interpretation Comments Result (test code = No fungus isolated in 6463-4) 28 days Fungus Smear (test No fungal elements seen code = 1406) [facility] CenterFungus culture + [id number] 08:28:10 Test Item Value Reference Range Interpretation Comments Result (test code = No fungus isolated in 6463-4) 28 days Fungus Smear (test No fungal elements seen code = 1406) [facility] CenterFungus culture + [id number] 08:28:10 Test Item Value Reference Range Interpretation Comments Result (test code = No fungus isolated in 6463-4) 28 days Fungus Smear (test No fungal elements seen code = 1406) [facility] CenterFungus culture + [id number] 08:28:10 Test Item Value Reference Range Interpretation Comments Result (test code = No fungus isolated in 6463-4) 28 days Fungus Smear (test No fungal elements seen code = 1406) [facility] CenterFungus culture + [id number] 08:28:10 Test Item Value Reference Range Interpretation Comments Result (test code = No fungus isolated in 6463-4) 28 days Fungus Smear (test No fungal elements seen code = 1406) [facility] CenterFUNGUS CULTURE + [id number] 08:28:10 Test Item Value Reference Range Interpretation Comments CULTURE (BEAKER) (test No fungus isolated in code = 1095) 28 days FUNGUS SMEAR (BEAKER) No fungal elements seen (test code = 1406) [id number] 05:54:28 Test Item Value Reference Range Interpretation Comments MAGNESIUM (BEAKER) (test code = 1.9 mg/dL 1.6-2.6 627) Configuration Management Analyst ID - [id number] 05:54:28 Test Item Value Reference Range Interpretation Comments PHOSPHORUS (BEAKER) (test code = 5.2 mg/dL 2.3-4.7 H 604) Configuration Management Analyst ID - MARCOBASIC METABOLIC [id number] 05:54:27 Test Item Value Reference Range Interpretation [...] not appl icable for dialysis patien ts Configuration Management Analyst ID - MARCOCBC W/PLT COUNT & AUTO [id number] 05:42:51 Test Item Value Reference Range Interpretation [...] PERCENT (BEAKER) (test code = 2801) CALCIUM, [id number] 05:36:04 Test Item Value Reference Range Interpretation Comments CALCIUM IONIZED (BEAKER) (test 1.12 mmol/L 1.12-1.27 code = 698) PH, BLOOD (BEAKER) (test code = 7.42 1810) Anaerobic [id number] 02:03:45 Test Item Value Reference Range Interpretation Comments Result (test code = No anaerobes isolated 6463-4) [facility] [id number] 02:03:45 Test Item Value Reference Range Interpretation Comments Result (test code = No anaerobes isolated 6463-4) [facility] [id number] 02:03:45 Test Item Value Reference Range Interpretation Comments Result (test code = No anaerobes isolated 6463-4) [facility] [id number] 02:03:45 Test Item Value Reference Range Interpretation Comments Result (test code = No anaerobes isolated 6463-4) [facility] [id number] 02:03:45 Test Item Value Reference Range Interpretation Comments Result (test code = No anaerobes isolated 6463-4) [facility] [id number] 02:03:45 Test Item Value Reference Range Interpretation Comments Result (test code = No anaerobes isolated 6463-4) [facility] [id number] 02:03:45 Test Item Value Reference Range Interpretation Comments Result (test code = No anaerobes isolated 6463-4) [facility] [id number] 02:03:45 Test Item Value Reference Range Interpretation Comments CULTURE (BEAKER) (test No anaerobes isolated code = 1095) STD Panel - CT/GC [id number] 17:37:44 Test Item Value Reference Interpretation Comments Range C. trachomatis NOT DETECTED RNA, TMA (test code = 0976353) N. gonorrhoeae NOT DETECTED REFERENCE RA NGE: NOT RNA, TMA (test DETECTED Meth odology: code = 3987264) Transcriptio n Mediated Amplification ( TMA)to detect RNA. The analytical perf ormance characteristics of thisassay, when used to test SurePat h(TM) specimens haveb een determined by [facility]. Th e modificationsha ve not been cleared or approved by the FDA. This assayhas b een validated pursu ant to the CLIA regula tions andis used for clinical purpos es. For additional information, pl ease refer tohttps://educa tion.[employer]. [employer]/faq /JHM536(This li nk is being provided for informational/e ducatio nal purposes on ly.) SUE (test code = Performing Lab SUE) *[facility] [address] [address] Sylvie Gresham MD, PhD [facility]TD [facility] - CT/GC [id number] 17:37:44 Test Item Value Reference Interpretation Comments Range C. trachomatis NOT DETECTED RNA, TMA (test code = 4434704) N. gonorrhoeae NOT DETECTED REFERENCE RA NGE: NOT RNA, TMA (test DETECTED Meth odology: code = 4441439) Transcriptio n Mediated Amplification ( TMA)to detect RNA. The analytical perf ormance characteristics of thisassay, when used to test SurePat h(TM) specimens haveb een determined by [facility]. Th e modificationsha ve not been cleared or approved by the FDA. This assayhas b een validated pursu ant to the CLIA regula tions andis used for clinical purpos es. For additional information, pl ease refer tohttps://ISVWorlda Quellan.[employer]. [employer]/faq /DLA401(This li nk is being provided for informational/e ducatio nal purposes on ly.) SUE (test code = Performing Lab SUE) *[facility] [place] [id number] Sylvie Gresham MD, PhD [facility] Panel - CT/GC [id number] 17:37:44 Test Item Value Reference Interpretation Comments Range C. trachomatis NOT DETECTED RNA, TMA (test code = 9585252) N. gonorrhoeae NOT DETECTED REFERENCE RA NGE: NOT RNA, TMA (test DETECTED Meth odology: code = 9294861) Transcriptio n Mediated Amplification ( TMA)to detect RNA. The analytical perf ormance characteristics of thisassay, when used to test SurePat h(TM) specimens haveb een determined by [facility]. Th e modificationsha ve not been cleared or approved by the FDA. This assayhas b een validated pursu ant to the CLIA regula tions andis used for clinical purpos es. For additional information, pl ease refer tohttps://educa HealthSourceon.[employer]. [employer]/faq /WPU732(This li nk is being provided for informational/e ducatio nal purposes on ly.) SUE (test code = Performing Lab SUE) *[facility] Sylvie Gresham MD, PhD [facility] Panel - CT/GC [id number] 17:37:44 Test Item Value Reference Interpretation Comments Range C. trachomatis NOT DETECTED RNA, TMA (test code = 0486560) N. gonorrhoeae NOT DETECTED REFERENCE RA NGE: NOT RNA, TMA (test DETECTED Meth odology: code = 8401213) Transcriptio n Mediated Amplification ( TMA)to detect RNA. The analytical perf ormance characteristics of thisassay, when used to test SurePat h(TM) specimens haveb een determined by [facility]. Th e modificationsha ve not been cleared or approved by the FDA. This assayhas b een validated pursu ant to the CLIA regula tions andis used for clinical purpos es. For additional information, pl ease refer tohttps://ISVWorlda Quellan.[employer]. [employer]/faq /UAI873(This li nk is being provided for informational/e ducatio nal purposes on ly.) SUE (test code = Performing Lab SUE) *[facility] [address] Sylvie Gresham MD, PhD [facility] Panel - CT/GC [id number] 17:37:44 Test Item Value Reference Interpretation Comments Range C. trachomatis NOT DETECTED RNA, TMA (test code = 9910531) N. gonorrhoeae NOT DETECTED REFERENCE RA NGE: NOT RNA, TMA (test DETECTED Meth odology: code = 3560970) Transcriptio n Mediated Amplification ( TMA)to detect RNA. The analytical perf ormance characteristics of thisassay, when used to test SurePat h(TM) specimens haveb een determined by [facility]. Th e modificationsha ve not been cleared or approved by the FDA. This assayhas b een validated pursu ant to the CLIA regula tions andis used for clinical purpos es. For additional information, pl ease refer tohttps://educa Quellan.[employer]. [employer]/faq /TGU292(This li nk is being provided for informational/e ducatio nal purposes on ly.) SUE (test code = Performing Lab SUE) *[facility] Sylvie Gresham MD, PhD [facility] Panel - CT/GC [id number] 17:37:44 Test Item Value Reference Interpretation Comments Range C. trachomatis NOT DETECTED RNA, TMA (test code = 0375301) N. gonorrhoeae NOT DETECTED REFERENCE RA NGE: NOT RNA, TMA (test DETECTED Meth odology: code = 8474483) Transcriptio n Mediated Amplification ( TMA)to detect RNA. The analytical perf ormance characteristics of thisassay, when used to test SurePat h(TM) specimens haveb een determined by [facility]. Th e modificationsha ve not been cleared or approved by the FDA. This assayhas b een validated pursu ant to the CLIA regula tions andis used for clinical purpos es. For additional information, pl ease refer tohttps://educa Quellan.[employer]. [employer]/faq /QKI705(This li nk is being provided for informational/e ducatio nal purposes on ly.) SUE (test code = Performing Lab SUE) *[facility] [address] [address] Sylvie Gresham MD, PhD [facility]TD [facility] - CT/GC [id number] 17:37:44 Test Item Value Reference Interpretation Comments Range C. trachomatis NOT DETECTED RNA, TMA (test code = 6318701) N. gonorrhoeae NOT DETECTED REFERENCE RA NGE: NOT RNA, TMA (test DETECTED Meth odology: code = 7720736) Transcriptio n Mediated Amplification ( TMA)to detect RNA. The analytical perf ormance characteristics of thisassay, when used to test SurePat h(TM) specimens haveb een determined by [facility]. Th e modificationsha ve not been cleared or approved by the FDA. This assayhas b een validated pursu ant to the CLIA regula tions andis used for clinical purpos es. For additional information, pl ease refer tohttps://ISVWorlda Quellan.[employer]. [employer]/faq /DLN611(This li nk is being provided for informational/e ducatio nal purposes on ly.) SUE (test code = Performing Lab SUE) *[facility] [place] [id number] [place] [phone] Sylvie Gresham MD, PhD [facility] CenterBASIC METABOLIC [id number] 16:40:09 Test Item Value Reference Range Interpretation [...] not appl icable for dialysis patien ts Configuration Management Analyst ID - BSOsmolality, [id number] 12:43:16 Test Item Value Reference Range Interpretation Comments Osmolality, Ur (test code 245 See_Comment [ Automated message] = 2695-5) The system to-BBB generated this result transmitted ref erence range: 50-1,200 mOsm/kg mOsm/kg . The reference range was not used to int erpret this result as normal/abnormal . Lab Interpretation (test Normal code = 23794-9) [facility] CenterOSMOLALITY, [id number] 12:43:16 Test Item Value Reference Range Interpretation Comments OSMOLALITY URINE 245 mOsm/kg See_Comment [Automated message] (BEAKER) (test code = The sy stem which 614) generated this result transmitted ref erence range: 50-1,200 mOsm/kg. The reference range was not used to int erpret this result as normal/abnormal . Sodium, random [id number] 11:48:27 Test Item Value Reference Range Interpretation Comments Sodium Urine (test 82 meq/L code = 2955-3) SUE (test code = Reference Range: No SUE) NormalsOperator ID - ADMIN [facility] Center[facility] Nitrogen, random [id number] 11:48:27 Test Item Value Reference Range Interpretation Comments Urea Nitrogen, Ur 121 mg/dL (test code = 3095-7) SUE (test code = Reference Range: No SUE) NormalsOperator ID - ADMIN [facility] [id number] 11:48:27 Test Item Value Reference Range Interpretation Comments SODIUM URINE (BEAKER) (test code = 82 meq/L 243) Reference Range: No NormalsOperator ID - ADMINUREA NITROGEN, RANDOM URINE 2022-08-10 11:48:27 Test Item Value Reference Range Interpretation Comments UREA NITROGEN URINE (BEAKER) (test 121 mg/dL code = 538) Reference Range: No NormalsOperator ID - ADMINCreatinine, random [id number] 11:48:26 Test Item Value Reference Range Interpretation Comments Creatinine, Ur 20.9 mg/dL (test code = 2161-8) USE (test code = Reference Range: No SUE) NormalsOperator ID - ADMIN [facility] CenterCREATININE, RANDOM [id number] 11:48:26 Test Item Value Reference Range Interpretation Comments CREATININE URINE (BEAKER) (test 20.9 mg/dL code = 375) Reference Range: No NormalsOperator ID - ADMINWound culture + gram stain 2022-08-10 11:24:49 Test Item Value Reference Range Interpretation Comments Result (test code = No growth 6463-4) Gram Stain Result <1+ gram positive cocci (test code = 1123) in pairs [facility] CenterWound [facility] + gram [id number] 11:24:49 Test Item Value Reference Range Interpretation Comments Result (test code = No growth 6463-4) Gram Stain Result <1+ gram positive cocci (test code = 1123) in pairs [facility] CenterW[facility] + gram [id number] 11:24:49 Test Item Value Reference Range Interpretation Comments Result (test code = No growth 6463-4) Gram Stain Result <1+ gram positive cocci (test code = 1123) in pairs [facility] culture + gram egqjp2479-18-20 11:24:49 Test Item Value Reference Range Interpretation Comments Result (test code = No growth 6463-4) Gram Stain Result <1+ gram positive cocci (test code = 1123) in pairs [facility] culture + gram [id number] 11:24:49 Test Item Value Reference Range Interpretation Comments Result (test code = No growth 6463-4) Gram Stain Result <1+ gram positive cocci (test code = 1123) in pairs [facility] culture + gram [id number] 11:24:49 Test Item Value Reference Range Interpretation Comments Result (test code = No growth 6463-4) Gram Stain Result <1+ gram positive cocci (test code = 1123) in pairs [facility] culture + gram [id number] 11:24:49 Test Item Value Reference Range Interpretation Comments Result (test code = No growth 6463-4) Gram Stain Result <1+ gram positive cocci (test code = 1123) in pairs [facility] CULTURE + GRAM [id number] 11:24:49 Test Item Value Reference Range Interpretation Comments CULTURE (BEAKER) (test No growth code = 1095) GRAM STAIN RESULT 4+ WBCs (BEAKER) (test code = 1123) GRAM STAIN RESULT <1+ gram positive cocci (BEAKER) (test code = in pairs 49900) T4, [id number] 11:12:44 Test Item Value Reference Range Interpretation Comments FREE T4 (BEAKER) (test code = 655) 1.25 ng/dL 0.70-1.48 Configuration Management Analyst ID - AAHAMIDOSMOLALITY, [id number] 11:11:51 Test Item Value Reference Range Interpretation Comments OSMOLALITY, SERUM (BEAKER) (test 271 mOsm/kg 275-295 L code = 615) TSH/FREE T4 IF [id number] 10:36:27 Test Item Value Reference Range Interpretation Comments THYROID STIMULATING HORMONE 10.385 uIU/mL 0.350-4.940 H (BEAKER) (test code = 772) Configuration Management Analyst ID - CLIFDVXMTBWYGWU5978-28-23 10:30:32 Test Item Value Reference Range Interpretation Comments CORTISOL, TOTAL (BEAKER) (test 11.9 ug/dL 3.7-19.4 code = 2755) Configuration Management Analyst ID - AAJA, DRAINAGE, SOFT TISSUE FLUID CFPSKBQQNW0332-20-03 09:56:00Reason for exam:->tubo-ovarian abscess [facility] : 1975 Sex: [...] Whitesideort Verified Date/Time: 08/10/2022 09:56:28 Reading Location: [address] Neuro Reading Room RADIOLOGIC GUIDANCE & INTERP/[id number] 09:56:00FINAL REPORT CT guided fluid aspiration Clinical [...] Whiteside Verified Date/Time: 08/10/2022 09:56:28 Reading Location: [address] Neuro [facility]/[id number] 09:56:00FINAL REPORT CT guided fluid aspiration Clinical [...] Whiteside Verified Date/Time: 08/10/2022 09:56:28 Reading Location: [address] Neuro Reading Room [facility]/[id number] 09:56:00FINAL REPORT CT guided fluid aspiration Clinical [...] lower quadrant fluid collection. Signed: Nilo Whiteside [facility]epced[facility] Verified Date/Time: 08/10/2022 09:56:28 Reading Location: [address] Neuro Reading Room [facility]RAD[facility]P/[id number] 09:56:00FINAL REPORT CT guided fluid aspiration Clinical [...] Whiteside Verified Date/Time: 08/10/2022 09:56:28 Reading Location: [address] Neuro Reading Room [facility]/[id number] 09:56:00FINAL REPORT CT guided fluid aspiration Clinical [...] Whiteside Verified Date/Time: 08/10/2022 09:56:28 Reading Location: [address] Neuro Reading Room [facility]RAD[facility]/[id number] 09:56:00FINAL REPORT CT guided fluid aspiration Clinical [...] MDReport Verified Date/Time: 08/10/2022 09:56:28 Reading Location: [facility] C013 Neuro Reading Room [facility] HospitalTreadmill tolerance(Non-Nuclear Treadmill)2022-08-10 08:12:31 Protocol Name Lexiscan [...] PMConfirmed by Kelton Stapleton ([id number]) on 38:12:24 [facility] HospitalTread[facility] tolerance(Non- Nuclear Treadmill)2022-08-10 08:12:31Protocol Name Lexiscan [...] PMConfirmed by Kelton Stapleton ([id number]) on 38:12:24 [facility] HospitalTread[facility] tolerance(Non-Nuclear Treadmill)2022-08-10 08:12:31Protocol Name Lexiscan Time In [...] by Kelton Stapleton ([id number]) on 08/10/2022 8:12:24 [facility] HospitalTread[facility] tolerance(Non-Nuclear Treadmill) 2022-08-10 08:12:31Protocol Name Lexiscan Time [...] PMConfirmed by Kelton Stapleton ([id number]) on 38:12:24 [facility] HospitalTread[facility] tolerance(Non- Nuclear Treadmill)2022-08-10 08:12:31Protocol Name Lexiscan [...] PMConfirmed by Kelton Stapleton ([id number]) on 38:12:24 [facility] HospitalTread[facility] tolerance(Non-Nuclear Treadmill)2022-08-10 08:12:31Protocol Name Lexiscan Time In [...] by Kelton Stapleton ([id number]) on 08/10/2022 8:12:24 [facility] HospitalBASIC METABOLIC [id number] 06:16:41 Test Item Value Reference Range Interpretation [...] not appl icable for dialysis patien ts Configuration Management Analyst ID - ADMINSpecimen slightly [id number] 06:16:41 Test Item Value Reference Range Interpretation Comments MAGNESIUM (BEAKER) 1.9 mg/dL 1.6-2.6 Specimen slightly (test code = 627) hemolyzed Configuration Management Analyst ID - ADMINCBC (HEMOGRAM ONLY)2022-08-10 05:54:45 Test [...] 0-0 CELLS (BEAKER) (test code = 413) [id number] 04:19:50 Test Item Value Reference Range Interpretation Comments MAGNESIUM (BEAKER) (test code = 1.3 mg/dL 1.6-2.6 L 627) Configuration Management Analyst ID - MMBASIC METABOLIC [id number] 04:19:50 Test Item Value Reference Range Interpretation [...] not appl icable for dialysis patien ts Configuration Management Analyst ID - MMSpecimen slightly ictericCBC (HEMOGRAM ONLY)2022-08-09 [...] (BEAKER) (test code = 413) BASIC METABOLIC [id number] 06:27:34 Test Item Value Reference Range Interpretation [...] not appl icable for dialysis patien ts Configuration Management Analyst ID - DAMIÁN WSpecimen slightly ictericB-TYPE NATRIURETIC FACTOR (BNP) 2022-08-08 05:56:50 Test Item Value Reference Range Interpretation Comments B-TYPE NATRIURETIC PEPTIDE (BEAKER) 202 pg/mL 0-100 H (test code = 700) Configuration Management Analyst ID - BSCBC (HEMOGRAM ONLY)2022-08-08 05:36:13 Test [...] (BEAKER) (test code = 413) BASIC METABOLIC [id number] 05:39:11 Test Item Value Reference Range Interpretation [...] not appl icable for dialysis patien ts Configuration Management Analyst ID - ADMINSpecimen slightly ictericCBC (HEMOGRAM ONLY)2022-08-07 [...] 0-0 (BEAKER) (test code = 413) CT, [id number] 07:32:00Unlisted Reason for Exam - Click Yes and Enter Reason Below->NoProtocol Please Specify:->Standard ProtocolWill this procedure require oral contrast?->No [facility] : 1975 Sex: [...] Vigil MDReport Verified Date/Time: 08/06/2022 07:32:46 Reading Locatio n: [facility] Diagnostic Imaging Reading Room - [facility] F1 1129 Electronically signed by: Marti GUTIERREZ 08/06/2022 07:32 AMCT ABDOMEN/PELVIS WITH IV CONTRAST Standard [id number] 07:32:00FINAL REPORT CT abdomen and pelvis with [...] MDReport Verified Date/Time: 08/06/2022 07:32:46 Reading Location: [facility] Diagnostic Imaging Reading Room - [place] [address] [facility]AST Standard [id number] 07:32:00FINAL REPORT CT abdomen and pelvis with [...] MDReport Verified Date/Time: 08/06/2022 07:32:46 Reading Location: [facility] Diagnostic Imaging Reading Room - [place] [address] [facility]PELV[facility] WITH IV CONTRAST Standard Ndurblzs1844-33-01 07:32:00FINAL REPORT CT abdomen and pelvis with [...] in size from 07/30/2022. Signed: Kam Vigil [facility]epced[facility] Verified Date/Time: 08/06/2022 07:32:46 Reading Location: [facility] Diagnostic Imaging Reading Room [place] [address] [facility]CT [facility]PELV[facility] WITH IV CONTRAST Standard [id number] 07:32:00FINAL REPORT CT abdomen and pelvis with [...] MDReport Verified Date/Time: 08/06/2022 07:32:46 Reading Location: [facility] Diagnostic Imaging Reading Room [place] [address] [facility]PELVIS WITH IV CONTRAST Standard [id number] 07:32:00FINAL REPORT CT abdomen and pelvis with [...] MDReport Verified Date/Time: 08/06/2022 07:32:46 Reading Location: [facility] Diagnostic Imaging Reading Room - [place] [address] [facility]CT [facility]PELVIS WITH IV CONTRAST Standard Bjeaagsg5860-11-01 07:32:00FINAL REPORT CT abdomen and pelvis with [...] MDReport Verified Date/Time: 08/06/2022 07:32:46 Reading Location: [facility] Diagnostic Imaging Reading Room - [place] [address] [facility] HospitalPregnancy Screen, [id number] 21:59:05 Test Item Value Reference Range Interpretation Comments Preg Test, Ur (test code = 2112-1) Negative Negative Lab Interpretation (test code = Normal 59082-3) [facility] CenterPREGNANCY SCREEN, [id number] 21:59:05 Test Item Value Reference Range Interpretation [...] CONCENTRATION Adequate (CELLAVISION)(BEAKER) (test code = 3438) Configuration Management Analyst ID - Salena comments: Slide comments:BASIC METABOLIC [...] not appl icable for dialysis patien ts Configuration Management Analyst ID - ADMINSpecimen slightly ictericPROTHROMBIN TIME/[id number] 21:25:45 Test Item Value Reference Range Interpretation [...] mechanical heart valves.CBC W/PLT COUNT & AUTO [id number] 21:20:49 Test Item Value Reference Range Interpretation [...] (BEAKER) (test code = 413) Transthoracic echo [id number] 16:18:18Ejection FractionSLEH ECHO HEARTLAB MKCKAPRILON [facility] CenterTransthoracic echo [id number] 16:18:18Ejection FractionSLEH ECHO HEARTLAB MKDERRICKSTONY BR[facility] HOSPITALON [facility] CenterTransthoracic echo [id number] 16:18:18Ejection FractionSLEH ECHO HEARTLAB MK[facility]ENTERON [facility] CenterTransthoracic echo result 2022-08-03 16:18:18Ejection FractionSLEH ECHO HEARTLAB MKCKAPRILON [facility] CenterTransthoracic echo [id number] 16:18:18Ejection FractionSLEH ECHO HEARTLAB [facility] Transthoracic echo [id number] 16:18:18Ejection FractionSLEH ECHO HEARTLAB [facility]IEUN[facility] CENTERJOSE [facility] CenterTransthoracic echo [id number] 16:18:18Ejection FractionSLEH ECHO HEARTLAB [facility]BAS[facility] [id number] 05:26:56 Test Item Value Reference Range Interpretation [...] (test code = 697) EGFR (BEAKER) 48 Interpretati on of eGFR (test code = mL/min/1.73 values Stage De scription 1092) sq m Result G1 Ecci l or high >=90 G2 Mildly decreased [...] not appl icable for dialysis patien ts Configuration Management Analyst ID - MMSpecimen slightly ictericCBC (HEMOGRAM ONLY)2022-08-03 [...] CONCENTRATION Decreased (CELLAVISION)(BEAKER) (test code = 3438) Configuration Management Analyst ID - Salena comments: Slide comments:CBC W/PLT COUNT & AUTO [id number] 14:52:12 Test Item Value Reference Range Interpretation [...] (BEAKER) (test code = 413) BASIC METABOLIC [id number] 13:40:34 Test Item Value Reference Range Interpretation [...] not appl icable for dialysis patien ts Configuration Management Analyst ID - ADMINSpecimen moderately ictericMYOCARD IMAGING, MULTI, PHARM, [id number] 15:12:00Unlisted Reason for Exam - Click Yes and Enter Reason Below->NoS[facility] : 1975 Sex: FFINAL REPORT PROCEDURE: MYOCARDIAL PERFUSION SPECT IMAGING (Rest/Stress)CPT CODE: 95290 INDICATION: Cardiac screening, high CAD risk CARDIOVASCULAR [...] PROCEDURE: MYOCARDIAL PERFUSION SPECT IMAGING (Rest/Stress)CPT CODE: 92253 INDICATION: Cardiac screening, high CAD risk CARDIOVASCULAR [...] Signed: Robbin Cerna Verified Date/Time: 08/01/2022 15:12:23 [facility](Lexiscan) 2022-08-01 15:12:00FINAL REPORT PROCEDURE: MYOCARDIAL PERFUSION SPECT IMAGING (Rest/Stress)CPT CODE: 03228 INDICATION: Cardiac screening, high CAD risk CARDIOVASCULAR [...] is no prior study for comparison. Signed: Rbobin Cerna MDRepramirez Verified Date/Time: 08/01/2022 15:12:23 [facility] myocardial perfusion SPECT, pharm(Lexiscan) 2022-08-01 15:12:00FINAL REPORT PROCEDURE: MYOCARDIAL PERFUSION SPECT IMAGING (Rest/Stress)CPT CODE: 38758 INDICATION: Cardiac screening, high CAD risk CARDIOVASCULAR [...] Robbin Cerna MDReport Verified Date/Time: 08/01/2022 15:12:23 [facility] SPECT, pharm(Lexiscan) 2022-08-01 15:12:00FINAL REPORT PROCEDURE: MYOCARDIAL PERFUSION SPECT IMAGING (Rest/Stress)CPT CODE: 37583 INDICATION: Cardiac screening, high CAD risk CARDIOVASCULAR [...] Robbin Cerna MDReport Verified Date/Time: 08/01/2022 15:12:23 [facility] myocardial perfusion SPECT, pharm(Lexiscan) 2022-08-01 15:12:00FINAL REPORT PROCEDURE: MYOCARDIAL PERFUSION SPECT IMAGING (Rest/Stress)CPT CODE: 64772 INDICATION: Cardiac screening, high CAD risk CARDIOVASCULAR [...] Robbin Cerna MDReport Verified Date/Time: 08/01/2022 15:12:23 [facility] myocardial perfusion SPECT, pharm(Lexiscan) 2022-08-01 15:12:00FINAL REPORT PROCEDURE: MYOCARDIAL PERFUSION SPECT IMAGING (Rest/Stress)CPT CODE: 55875 INDICATION: Cardiac screening, high CAD risk CARDIOVASCULAR [...] prior study for comparison. Signed: Robbin Cerna [facility]epced[facility] Verified Date/Time: 08/01/2022 15:12:23 [facility] CenterHEMOGLOBIN [id number] 13:52:52 Test Item Value Reference Range Interpretation [...] 5.7- 6.4% indicates increased risk for diabetes (prediabetes)."Configuration Management Analyst ID - ADM (CELLAVISION MANUAL DIFF)2022-08-01 08:26:35 [...] CONCENTRATION Decreased (CELLAVISION)(BEAKER) (test code = 3438) Configuration Management Analyst ID - Remy Dato-onUser comments: Slide comments:CBC W/PLT COUNT & AUTO [id number] 08:26:34 Test Item Value Reference Range Interpretation [...] (BEAKER) (test code = 413) HCG, QUANTITATIVE, [id number] 05:48:18 Test Item Value Reference Range Interpretation Comments GONADOTROPIN, CHORIONIC (HCG) QUANT < mIU/mL 0-10 (BEAKER) (test code = 649) Non- Females: <10 mIU/mL Females: Gestation Age Reference Range(mIU/mL) 0.2-1 Week 5-50 1-2 Weeks 50-500 2-3 Weeks 100-5,000 3-4 Weeks 500-10,000 4-5 Weeks 1,000-50,000 5-6 Weeks 10,000-100,000 6-8 Weeks 15,000- 200,000 2-3 Months 10,000-100,000 Configuration Management Analyst ID - DBBASIC METABOLIC PANEL 2022-08-01 05:41:39 [...] not appl icable for dialysis patien ts Configuration Management Analyst ID Gisele DAMIÁN WSpecimen moderately [id number] 05:41:38 Test Item Value Reference Range Interpretation Comments MAGNESIUM (BEAKER) (test code = 1.7 mg/dL 1.6-2.6 627) Configuration Management Analyst ID Gisele STEEL [id number] 05:41:38 Test Item Value Reference Range Interpretation Comments PHOSPHORUS (BEAKER) (test code = 3.0 mg/dL 2.3-4.7 604) Configuration Management Analyst ID Gisele DAMIÁN T/[id number] 05:39:59 Test Item Value Reference Range Interpretation [...] 2.5-3.5 for patients with mechanical heart valves.LIPID [id number] 22:24:08 Test Item Value Reference Range Interpretation Comments TRIGLYCERIDES (BEAKER) (test code = 51 mg/dL 540) CHOLESTEROL (BEAKER) (test code = 102 mg/dL 631) HDL CHOLESTEROL (BEAKER) (test code 45 mg/dL = 976) LDL CHOLESTEROL CALCULATED (SynerGene TherapeuticsAKER) 47 mg/dL (test code = 633) Triglyceride Reference Range: Low Risk <150 Borderline 150-199 High Risk 200- 499 Very High Risk >=500Cholesterol Reference Range: Low Risk <200 Borderline 200-239 High Risk >240HDL Cholesterol Reference Range: Low Risk >=60 High Risk <40LDL Cholesterol Reference Range: Optimal <100 Near Optimal 100-129 Borderline 130-159 High 160-189 Very High >=190 Configuration Management Analyst ID - [id number] ID - [id number] ID - [id number] slightly icteric U/S, ENDOVAGINAL (EV)2022-07-31 14:38:00Reason for exam:->concern for [facility]A [facility] : 1975 Sex: FFINAL [...] Signed: Shauna Duran Verified Date/Time: 07/31/2022 14:38:44 U/S, [id number] 14:38:00Reason for exam:->concern for TOASUTTER [facility]Name: [facility] : 1975 Sex: FFINAL [...] follow-up imaging with ultrasound. Signed: Shauna Duran MDRgriffin hospital Verified Date/Time: 07/31/2022 14:38:44 U/S, DUPLEX, [id number] 14:38:00 [facility] : 1975 Sex: FFINAL [...] follow-up imaging with ultrasound. Signed: Shauna Duran [facility] Verified Date/Time: 07/31/2022 14:38:44 [place] [id number] 14:38:00FINAL REPORT TECHNIQUE: Transabdominal and transvaginal grayscale [...] Signed: Shauna Duran Verified Date/Time: 07/31/2022 14:38:44 [facility] [id number] 14:38:00FINAL REPORT TECHNIQUE: Transabdominal and transvaginal grayscale [...] Signed: Shauna Duran Verified Date/Time: 07/31/2022 14:38:44 [facility]US Bidooytbimm7130-92-67 14:38:00FINAL REPORT TECHNIQUE: Transabdominal and transvaginal grayscale [...] Signed: Shauna Duran Verified Date/Time: 07/31/2022 14:38:44 [facility] [id number] 14:38:00FINAL REPORT TECHNIQUE: Transabdominal and transvaginal grayscale [...] follow-up imaging with ultrasound. Signed: Shauna Duran [facility] Verified Date/Time: 07/31/2022 14:38:44 [facility] obndsoh6240-71-04 14:38:00FINAL REPORT TECHNIQUE: Transabdominal and transvaginal grayscale [...] Signed: Shauna Duran Verified Date/Time: 07/31/2022 14:38:44 [facility]US Glvhkxgdnfl0255-59-64 14:38:00FINAL REPORT TECHNIQUE: Transabdominal and transvaginal grayscale [...] Signed: Shauna Duran Verified Date/Time: 07/31/2022 14:38:44 [facility] [id number] 14:38:00FINAL REPORT TECHNIQUE: Transabdominal and transvaginal grayscale [...] Shauna Duran MDReport Verified Date/Time: 07/31/2022 14:38:44 [facility] jblqdij5513-03-20 14:38:00FINAL REPORT TECHNIQUE: Transabdominal and transvaginal grayscale [...] Shauna Duran MDReport Verified Date/Time: 07/31/2022 14:38:44 [facility] Wuvnmuppjvk2459-51-10 14:38:00FINAL REPORT TECHNIQUE: Transabdominal and transvaginal grayscale [...] Signed: Shauna Duran Verified Date/Time: 07/31/2022 14:38:44 [facility]US lnonrp0662-30-87 14:38:00FINAL REPORT TECHNIQUE: Transabdominal and transvaginal grayscale [...] Signed: Shauna Duran Verified Date/Time: 07/31/2022 14:38:44 [facility] kpuyvza1520-44-50 14:38:00FINAL REPORT TECHNIQUE: Transabdominal and transvaginal grayscale [...] follow-up imaging with ultrasound. Signed: Shauna Duran [facility] Verified Date/Time: 07/31/2022 14:38:44 [facility]US Otfelxmocte0942-10-92 14:38:00FINAL REPORT TECHNIQUE: Transabdominal and transvaginal grayscale [...] Shauna Duran MDReport Verified Date/Time: 07/31/2022 14:38:44 [facility] itigkb1142-24-70 14:38:00FINAL REPORT TECHNIQUE: Transabdominal and transvaginal grayscale [...] Shauna Duran MDReport Verified Date/Time: 07/31/2022 14:38:44 [facility] ufndwvm4499-02-53 14:38:00FINAL REPORT TECHNIQUE: Transabdominal and transvaginal grayscale [...] follow-up imaging with ultrasound. Signed: Shauna Duran [facility] Verified Date/Time: 07/31/2022 14:38:44 [facility] Wdjdytqabam1721-07-63 14:38:00FINAL REPORT TECHNIQUE: Transabdominal and transvaginal grayscale [...] follow-up imaging with ultrasound. Signed: Shauna Duran [facility] Verified Date/Time: 07/31/2022 14:38:44 [facility] [id number] 14:38:00FINAL REPORT TECHNIQUE: Transabdominal and transvaginal grayscale [...] Signed: Shauna Duran Verified Date/Time: 07/31/2022 14:38:44 [facility] qttheyd6189-07-57 14:38:00FINAL REPORT TECHNIQUE: Transabdominal and transvaginal grayscale [...] Signed: Shauna Duran Verified Date/Time: 07/31/2022 14:38:44 [facility] Xbvivjdspxc0229-34-95 14:38:00FINAL REPORT TECHNIQUE: Transabdominal and transvaginal grayscale [...] Shauna Duran MDReport Verified Date/Time: 07/31/2022 14:38:44 [facility] W/PLT COUNT & AUTO [id number] 03:57:39 Test Item Value Reference Range Interpretation [...] H PERCENT (BEAKER) (test code = 2801) [id number] 03:56:52 Test Item Value Reference Range Interpretation Comments MAGNESIUM (BEAKER) (test code = 1.5 mg/dL 1.5-3.0 627) Configuration Management Analyst ID - [id number] ID - [id number] ID - [id number] ID - [id number] BASIC METABOLIC [id number] 03:55:31 Test Item Value Reference Range Interpretation [...] not appl icable for dialysis patien ts Configuration Management Analyst ID - [id number] ID - [id number] ID - [id number] ID - WCXN34Hnxeeefb ID - ILEA58Aalddrao ID - OHXA45Taisohjo ID - STTH10Mlibvynu ID - [id number] ID - EBBF70Qzktfttd slightly nnfdgjgLMDMMMKMRR9594-27-15 03:54:07 Test Item Value Reference Range Interpretation Comments PHOSPHORUS (BEAKER) (test code = 4.0 mg/dL 2.5-4.5 604) Configuration Management Analyst ID - [id number] 18:37:08 Test Item Value Reference Range Interpretation Comments MAGNESIUM (BEAKER) (test code = 1.6 mg/dL 1.5-3.0 627) Configuration Management Analyst ID - [id number] ID - [id number] ID - [id number] ID - [id number], CHEST, 1 VIEW, NON [id number] 16:51:00Reason for exam:->SOB, wheezingShould this be performed at the bedside?->Yes [facility] : 1975 Sex: [...] Car[place]eport Verified Date/Time: 07/30/2022 16:51:52 Reading Location: [facility] Radiology Reading Room BASI METABOLIC PANEL [...] not appl icable for dialysis patien ts Configuration Management Analyst ID - [id number] ID - [id number] ID - [id number] ID - [id number] ID - [id number] ID - [id number] ID - [id number] ID - [id number] ID - [id number] ID - [id number] ID - [id number] ID - [id number] TIME/INR 2022-07-30 16:00:01 Test Item Value Reference [...] mechanical heart valves.CBC W/PLT COUNT & AUTO [id number] 15:52:31 Test Item Value Reference Range Interpretation [...] PERCENT (BEAKER) (test code = 2801) TISSUE [id number] 12:09:00Surgical Pathology Report Case: [id number] Authorizing Provider: Trudy James MD Collected: 02/17/2019 1126 Ordering Location: [address] Received: 02/17/2019 1147 Service Pathologist: Angela Beach MD Specimen: Gallbladder A. GALLBLADDER, CHOLECYSTECTOMY: - CHRONIC CHOLECYSTITIS WITHCHOLELITHIASIS. Signing Pathologist Direct Phone Line: [phone] signed by Angela Beach MD on 02/19/2019 at 12:09 [id number] renal mass Gallbladder Received in formalin labeled [...] trabeculated. The wall measures 0.2 cm thick. Driver Manager sections are submitted in A1-A2, with the inked proximalmargin is A1. PA/ew Performed.[facility], Department of Pathology, [address] [place] [address], [facility], [facility] of Pathology, [address] [place] [address] 64[address], [facility], Department of Pathology, [address] [place] [address], [facility] W/PLT COUNT & AUTO [id number] 07:03:00 Test Item Value Reference Range Interpretation [...] (BEAKER) (test code = 2801) BASIC METABOLIC [id number] 06:57:00 Test Item Value Reference Range Interpretation [...] APPLICABLE FOR DIALYSIS PATIEN TS. HEPATIC FUNCTION [id number] 06:57:00 Test Item Value Reference Range Interpretation [...] (test code = 347) hemolyzed HEPATIC FUNCTION [id number] 06:57:00 Test Item Value Reference Range Interpretation [...] 72 U/L 6-55 H 347) BASIC METABOLIC [id number] 06:57:00 Test Item Value Reference Range Interpretation [...] PATIEN TS. CBC W/PLT COUNT & AUTO [id number] 06:28:00 Test Item Value Reference Range Interpretation [...] PERCENT (BEAKER) (test code = 2801) SCREEN, [id number] 07:28:00 Test Item Value Reference Range Interpretation Comments TEST URINE (BEAKER) (test Negative code = 583) [id number] 07:28:00 Test Item Value Reference Range Interpretation Comments MAGNESIUM (BEAKER) 2.0 mg/dL 1.6-2.6 Specimen moderately (test code = 627) hemolyzed [id number] 07:28:00 Test Item Value Reference Range Interpretation Comments PHOSPHORUS (BEAKER) 4.0 mg/dL 2.3-4.7 Specimen moderately (test code = 604) hemolyzed BASIC METABOLIC [id number] 07:28:00 Test Item Value Reference Range Interpretation [...] APPLICABLE FOR DIALYSIS PATIEN TS. HEPATIC FUNCTION [id number] 07:28:00 Test Item Value Reference Range Interpretation [...] Specimen moderately (test code = 347) hemolyzed [id number] 07:28:00 Test Item Value Reference Range Interpretation Comments LIPASE (BEAKER) (test code = 749) 31 U/L 8-78 CBC W/PLT COUNT & AUTO [id number] 07:10:00 Test Item Value Reference Range Interpretation [...] (BEAKER) (test code = 2801) U/S, ABDOMINAL, [id number] 23:50:00Abdomen limited area? Add comment if clarification [...] Date/Time: 02/15/2019 23:50:53 URINALYSIS W/ REFLEX URINE [id number] 22:43:00 Test Item Value Reference Range Interpretation [...] SOURCE(BEAKER) (test code = 2795) HEPATIC FUNCTION [id number] 17:03:00 Test Item Value Reference Range Interpretation [...] Specimen slightly (test code = 347) hemolyzed [id number] 16:00:00 Test Item Value Reference Range Interpretation Comments MAGNESIUM (BEAKER) 2.1 mg/dL 1.6-2.6 Specimen slightly (test code = 627) hemolyzed BASIC METABOLIC [id number] 16:00:00 Test Item Value Reference Range Interpretation [...] hemolyz ed (test code = 364) PROTHROMBIN TIME/[id number] 15:31:00 Test Item Value Reference Range Interpretation [...] is 2.5-3.5 for patients wiht mechanical heart valves.[id number] 15:31:00 Test Item Value Reference Range Interpretation Comments PARTIAL THROMBOPLASTIN TIME 31.4 seconds 22.5-36.0 (BEAKER) (test code = 760) CBC W/PLT COUNT & AUTO [id number] 15:14:00 Test Item Value Reference Range Interpretation [...] Consult Notes Date/Time Note Provider Source 2022-11-28 3577-40-25P60:23:09Associated Patrick Wallace OT [facility] 10:23:09 Order(s): CONSULT ADULT OCCUPATIONAL THERAPY OT GENERAL EVALUATIONConsult received via [employer], EMR reviewed and evaluation completed 11/28/22. Patient referred to occupational therapy for evaluation and treatment. Patient is 47 year old female with chest pain, NSTEMI. PMHx recent hemorrhagic stroke (10/29/22; hypertensive emergency in setting of methamphetamine use), CAD c/b unspecified [place] (02/2022 per [facility]), HFpEF, hypertension, hyperlipidemia, COPD, [...] and verbalizes understanding of teaching provided.Patrick Wallace, OTRUniversTexas Health Harris [facility] of Rehabilitation ServicesTotal Timed Treatment Codes: 10 [...] to enable patient to complete evaluation component. 94974-6Tcjmdzj lptlIX7851-04-13T10:15:28Consult noteTXT1.2.840.756629.1.13.104.2.7.2 .643395|[id number] for patient ehst21397-3Zqzqbwv sjgvMQ216162075Twavnj C Lawas [address]vdGalvestonGalvestonTXTX[address] AKCUCUGXQDKEMQFYPOZRUI3062-24-59K69: 15:281.2.840.236903.1.72.3.15|1.2.84 0.311478.1.13.104.2.7.2.727879_18983 76463 2022-11-28 0020-69-62L44:45:00Associated Savanna Juarez [facility] 09:45:00 Order(s): [...] setting of methamphetamine use), CAD c/b unspecified [place] (02/2022 per [facility]), HFpEF, hypertension, hyperlipidemia, COPD, [...] setting of methamphetamine use), CAD c/b unspecified [place] (02/2022 per [facility]), HFpEF, hypertension, hyperlipidemia, COPD, [...] a SS house, and sisterDME: Wheel Chair j4Oogeg level of Mobility: requires assistance with transfers, [...] denies pain before and after sessionCOMMUNICATIONPrimary Language: Filipino Able to Verbalize needs: Yes Vision:good; no [...] clinical presentation with unstable and unpredictable characteristics 79837-3Wjnnffb tcoaNA6311-84-84P06:53:18Consult noteTXT1.2.840.008871.1.13.104.2.7.2 .254710|4420383203LYCtdsncabk for patient kxki71460-6Jfhufyx rnkzVU695620422Bbgxpq Pallera [address] SnctQevobasqnTbkquqisaQICS0892201371 WAVGMEPNVHTLSNRJASYWOV6590-58-93X82: 53:181.2.840.088042.1.72.3.15|1.2.84 0.730551.1.13.104.2.7.2.727879_18983 79685 2022-11-25 3385-83-01V49:49:18Associated PN-NEUROLOGY [facility] 18:49:18 Order(s): CONSULT NEUROLOGY STROKE SERVICE CONSULTDATE [...] Result Value Ref Range APTT Patient >150 () 26 - 36 Seconds DRUG PANEL 2 [...] with Dr. Rivera, Neurology Faculty Stroke pager: [phone] Shahnaz Borges, MDPGY-4, NeurologyPager: [phone] signed by Romaine Rivera MD at 11/26/2022 [...] reported) and/or communicating results to the patient/family/caregiver. 82240-3Soaahjl wxavRN4420353Ghciajcg, Hashem1.2.840.142944.1.13.104.2.7.2. 972201JwqtpfxxOlkkxwFQ1839-23-10P73: 21:11Consult noteTXT1.2.840.948152.1.13.104.2.7.2 .165531|1258303546ZMSpsvxjhxl for patient agpj49596-6Jhqpskf nhoiXJEO-RFVVTYXUTBX-BOYMGSIAWWFMLHE [address] XsvpHpfhtlbcwVnwydkywxUXFE9852826251 UPKTNCHLAAYUCNIYZYTJIX7927-28-18J07: 21:111.2.840.513588.1.72.3.15|1.2.84 0.732257.1.13.104.2.7.2.727879_18956 61245 2022-11-25 6597-94-86L30:00:00Associated Analy Caceres [facility] 18:00:00 Order(s): CONSULT PS PASTORAL Filippo CARE Ground Water Pump Installer visited with patient in response to consult for pastoral care and support. Patient was awake and acknowledged professor of sociology's presence. Pt was alone in room. The Pt said she was of Rastafari nicole. The PT. Expressed to the Ground Water Pump Installer of some fear,about her upcomming surgery that going to be done on her heart.Pt asked the Ground Water Pump Installer to pray for her and for God to give her peace. The Ground Water Pump Installer provided spiritual support through prayer of healing, peace and comfort. Ground Water Pump Installer provided pastoral presence, and validated feelings. Pastoral care will continue to follow up as needed. Rev.Analy Ferro [facility] Department of Pastoral CarePh: [phone]: [phone] 76995-6Qumogqa wagmPV8149-43-46E67:31:33Consult noteTXT1.2.840.990911.1.13.104.2.7.2 .632025|6097923770QGGzabyvelq for patient ztvb63532-6Uwwwget sjfpAT933594773Zbtdxwo M [address] RqgyGklssdflwYncehhisnIHLL1106450895 KLKSWSTUWXLQNIJKSAPSDJ2883-33-01G09: 31:331.2.840.383184.1.72.3.15|1.2.84 0.247064.1.13.104.2.7.2.727879_18956 23508 2022-11-25 4549-42-18X79:53:13Associated PED-PEDIATRICS [facility] 10:53:13 Order(s): CONSULT ALLERGY ALLERGY & IMMUNOLOGY CONSULT NOTEDATE OF SERVICE: 11/25/22REASON FOR CONSULT: Aspirin allergyHPI: Patient is a 47 year old female with a past medical history significant for recent hemorrhagic stroke (10/29/22; hypertensive emergency in setting of methamphetamine use), CAD c/b unspecified [place] (02/2022 per [facility]), HFpEF, hypertension, hyperlipidemia, Asthma/COPD, GERD, and seizure [...] significant pericardial effusion, no significant valvular pathologyAPTT Qxoeqqn08 - 36 Seconds >150 High Panic 81 High ASSESSMENT / PLAN / RECOMMENDATIONS:Geetha Minor is a 47 year old female w/:a past medical history significant for recent hemorrhagic stroke (10/29/22; hypertensive emergency in setting of methamphetamine use), CAD c/b unspecified [place] (02/2022 per [facility]), HFpEF, hypertension, hyperlipidemia, Asthma/COPD, [...] patient. - Plan also explained to via vietnamese translatorPatient seen with Dr. Magaña. Thank you [...] see the fellow's note for additional details. 35774-1Oabaaft rgaoTM4002324Bshj, Sarah1.2.840.814726.1.13.104.2.7.2.8 36582SkleCkaqcNO9403-22-80V30:58:19C onsult noteTXT1.2.840.886614.1.13.104.2.7.2 .468208|3133579269YDCmsjiosgl for patient ujua98017-0Qlxscwj ihetXOXMU-MNRXNKKLJJWUM-AULDQVUNZNHK [id number] GOCVODNEPXADCLXJINOBKB4867-28-73C81: 58:191.2.840.335453.1.72.3.15|1.2.84 0.646133.1.13.104.2.7.2.727879_18954 68949 2022-11-24 8197-83-61G58:08:12Associated NS-NEUROLOGICAL [facility] 16:08:12 Order(s): CONSULT SURGERY NEUROSURGERY NEUROSURGERY CONSULTATION HISTORY AND PHYSICALAttending Neurosurgeon: Dr. 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), CAD c/b unspecified [place] (02/2022 per [facility]), HFpEF, hypertension, hyperlipidemia, COPD, [...] 100% 100% Weight: Height: Awake, alert, oriented s2WTQZD bilaterally at 3mmEOMI bilaterallySlight left lower facial [...] setting of methamphetamine use), CAD c/b unspecified [place] (02/2022 per [facility]), HFpEF, hypertension, hyperlipidemia, COPD, [...] timeChristian MD CindyNeurosurgery ServiceFor inquiries please page [phone] signed by Burton Howell MD at 11/25/2022 12:23 PM CDTAssociated attestation - Burton Howell MD - 11/25/2022 12:23 PM CDT I personally evaluated and am primary in decision making on, Geetha Minor, and I agree with the documentation by Sinan White MD,neurosurgery resident.49422-4Lkprxyq uiheKD6989387Mfbnlw, Rudy P1.2.840.051259.1.13.104.2.7.2.44175 9WtnaolOyqkCPE6892-29-36H55:23:14Con [facility] noteTXT1.2.840.215794.1.13.104.2.7.2 .856790|3118390141MYGqcakinot for patient rymo40999-2Clhfwnq noteLNNS-NEUROLOGICAL SURGERYNS-NEUROLOGICAL SURGERY[address] StreetXfyoTittqjeclXwtenwbyjALYK3912259955 QEZDOJSZDDZJLTIZMXIGEO1313-89-12V03: 23:141.2.840.179806.1.72.3.15|1.2.84 0.974609.1.13.104.2.7.2.727879_18954 49438 History and Physical Notes Date/Time Note Provider Source 2022-11-24 11:33:08 2012-36-16C75:33:08Formatting of this note [facility] is different from the original.Images from the original note were not included.CCU History and Physical Date of Service: 11/24/2022 15:48 ICU day: Intubation Day: CHIEF COMPLAINT: Chest painHistory of Present IllnessGeetha Minor is a 47 year old female with a past medical history significant for recent hemorrhagic stroke (10/29/22; 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 showed ST depression and TWI [...] 454 ms QTC Calculation(Bazett) 460 ms P [place] 19 degrees R [place] 64 degrees T [place] 254 degrees Normal sinus rhythm Possible Left [...] sedated at OSH prior to transfer to [facility], extubated on 10/30, required nicardipine gtt and [...] develop- Sedation/Analgesia: NoneRespCOPDHx tobacco abuse- DuoNebs prn- S6ORVkrnlyhceayouoAKBPZQVithp painReported CAD HFpEFBradycardiaHTNHLDPatient presenting as a transfer [facility] with NSTEMI. Troponin elevated here on arrival [...] evaluation of volume status- CXR- Will need [facility] this admission- Continue Plavix (allergic [...] prophylaxis: heparinLines/Catheters:Peripheral IV 11/24/22 Right Antecubital Inserted PROJECT SPECIALIST (Active) Number of days: 0 Dispo: CCUPrognosis: GuardedCode Status: FullDANIEL Diaz-3, Department of Internal Medicine ssociated attestation - [...] referrals and/or communicating with other health care mgr (when not separately reported), documenting clinical information in the electronic or other health record, and care coordination (not separately reported).- hemodynamically stable- Neurosurgery consult for systemic AC / DAPT in the future, given h/o ICH- allergy consult for ASA desensitizationJOSE Cierra GONZALEZ MD, [facility], [facility], [facility] HOSPITALAAssistant ProfessorCardiology, Advanced Heart Failure, LVAD & Transplant ServiceDate of service: 691935366-8Sdnnxck and physical lfziDE6532473Hpjahhsnbq-Lmjjjgwk, Jose C1.2.840.630422.1.13.104.2.7.2.147581Nxiuf fmoiy-HmjvvpgnXmqhZFS8812-01-10T15:30:41Hi story and physical noteTXT1.2.840.390510.1.13.104.2.7.2.84023 9|9603007498LGBbjflnawt for patient citn78100-5Bvcjnvk and physical noteLNUT[address] AlxaSbxgbusnaMhmdnnpnxAJKQ3686566293BMHYTA ZTLOECGJTKHXZNBZ4360-59-06J08:30:411.2.840 .763739.1.72.3.15|1.2.840.977745.1.13.104. 2.7.2.727879_[id number] Notes Date/Time Note Provider Source 2022-11-29 13:58:46 8225-99-99M77:58:46Formatting Desi hernandez CURB SETTER [facility] of this note is different from the original.2nd call no contact. 08460-4Xtrzjzgdt encounter OdxnSE1310-73-98J45:58:57Teleph one encounter NoteTXT1.2.840.807898.1.13.104. 2.7.2.911872|0583988715VGAolubz ble for patient ilkj60620-8JuhdBN011836283Gmvvh [facility] Deepak [address] AkyxAxgjpiuqjKamytsaiiCGDS70308 62738KYVHTBKFACOSQFMBEHOEUP3141 -09-14T13:58:571.2.840.335831.1 .72.3.15|1.2.840.259648.1.13.10 4.2.7.2.727879_1899775951 2022-11-29 12:58:12 6550-08-98T95:58:12Formatting [facility] of this note might be different from the original.TRANSITIONAL CARE MANAGEMENT ASSESSMENT11/29/2022 Geetha MinorPovjnpdm934452QJalbaui Martinez is a 47 year old /White female was admitted on 11/24/[address] She was discharged on 11/28/22 with discharge disposition of HR- Routine Discharge.Admitting Physician: Ryne Yoder FDischarge Diagnosis: NSTEMI (non-ST elevated myocardial infarction) [I21.4]No contact.No linked episodesTCM Ern-sdpq-tl-face outreach documentation: Future Appointments: 39816-6Otitwhmxv encounter GqcnWY9167-58-71X44:58:44Teleph one encounter NoteTXT1.2.840.910051.1.13.104. 2.7.2.327490|0151153269WOCvzgzw ble for patient aumj44235-1JhxoMVYABZUQGD[address] NywuMcutxntkdEstromtnkCOTY38050 69493YKAFVBUBEAIFBWJFKKBXML9825 -09-14T12:58:441.2.840.925808.1 .72.3.15|1.2.840.492215.1.13.10 4.2.7.2.727879_1899716552 2022-11-28 16:51:33 1574-94-33O90:51:33Formatting Sylvia Abad [facility] of this note might be different [...] of new skin breakdownOutcome: Adequate for discharge 55060-8Gpai of care lswoBB5127-41-01P48:51:41Plan of care noteTXT1.2.840.490654.1.13.104. 2.7.2.821758|8766186883EGYlrtiq ble for patient qlcx89305-0IklnVJ312892763Hwjsq anie Patterson RNUT[address] PsvfVpurhznbmIxmhrongfQAKY64357 48159GRWKYHZVAAFPUWMDWVLHRZ6917 -09-13T16:51:411.2.840.770472.1 .72.3.15|1.2.840.252900.1.13.10 4.2.7.2.727879_1898798115 2022-11-28 01:14:27 8660-36-23E97:14:27Formatting Trang mendes [facility] of this note might be different [...] of new skin breakdownOutcome: Progressing as expected 49665-3Kzsd of care lqhwOJ0483-22-86G41:14:30Plan of care noteTXT1.2.840.868665.1.13.104. 2.7.2.887160|6481970311VSKdbzqn page [facility] ykoz97317-1NxwvTA029178043Eenmy anders QUINTERO[address] StreetTXTX[address] 70650VCJMRISLERFBASJAJJAEKW1279 -09-13T01:14:301.2.840.943013.1 .72.3.15|1.2.840.890548.1.13.10 4.2.7.2.727879_1897819579 2022-11-27 06:31:47 0243-32-38J97:31:47Formatting Laisha Bartlett RN [facility] of this note might be different [...] of new skin breakdownOutcome: Progressing as expected 85315-3Pjrm of care paygXC5033-79-13T13:31:49Plan of care noteTXT1.2.840.155222.1.13.104. 2.7.2.642754|7052436735AZYspmov ble for patient lvak65591-6CnsoZL752638352Jxvt N. Au RNUTMB23 Stewart StreetTXTX[address] 32609LDEMAZZQDLKRUUGYNSOHOY3319 -09-12T06:31:491.2.840.526053.1 .72.3.15|1.2.840.902638.1.13.10 4.2.7.2.727879_1896843962 2022-11-26 21:20:10 2818-44-53W06:20:10Formatting Angelia Cardenas RN [facility] of this note might be different [...] Reduction in pain sensationOutcome: Progressing as expected 71290-7Wevk of care fzaqJH1570-77-81P96:20:13Plan of care noteTXT1.2.840.820628.1.13.104. 2.7.2.603630|5595004720BSMrogha ble for patient blon49546-5ItqcJH887031956Wqyuq y D Burns RNST. JUDE MEDICAL CENTER - [address] StreetQwdcNmhjdwokzUekdivwprPHCG49185 09246PQOVEPWLHUQUUWMZTEFKUX3515 -09-11T21:20:131.2.840.298320.1 .72.3.15|1.2.840.119564.1.13.10 4.2.7.2.727879_1896613986 2022-11-26 17:36:46 4608-86-54H10:36:46Formatting Sushma Velazquez RN [facility] of this note might be different [...] Reduction in pain sensationOutcome: Progressing as expected 49969-4Puun of care lhmxOD9097-96-48L12:36:51Plan of care noteTXT1.2.840.825860.1.13.104. 2.7.2.144487|6091609074NTLlynkq ble for patient yfes29892-5HadyYN861267891Hzbzi a D Cantu RN[address] StreetTXTX[address] 07183XXRHGWLTJSCZJYASDSOWKE8396 -09-11T17:36:511.2.840.546136.1 .72.3.15|1.2.840.470387.1.13.10 4.2.7.2.727879_1896571024 2022-11-25 23:27:36 7727-07-51O81:27:36Formatting Chuyita Marcial jarrod [facility] of this note might be different RN from the original.Problem: Falls, Risk ofGoal: Absence of fallsOutcome: Progressing as expected Problem: PainGoal: Control of pain at or below patient's documented comfort goalOutcome: Progressing as expected 99967-9Ezgf of care stcaOU8374-30-44Q00:27:40Plan of care noteTXT1.2.840.729616.1.13.104. 2.7.2.406258|0612689563BHDfoobf ble for patient fbtw96536-1NuqfZB497408527Fvvxh ia D Rodriguez RNUT[address] StreetTXTX[address] 63322WYHAUUBPFGTEQGSAFZVEMV4799 -09-10T23:27:401.2.840.623864.1 .72.3.15|1.2.840.970314.1.13.10 4.2.7.2.727879_1895696159 2022-11-25 17:36:51 8646-30-71I34:36:51Formatting Angelia Serrano son RN [facility] of this note might be different [...] of medication managementOutcome: Not progressing as expected 70866-2Zsdd of care rcweAV0762-82-99V75:36:56Plan of care noteTXT1.2.840.720834.1.13.104. 2.7.2.914219|6505321652IETxuvgf ble for patient xdyq62367-8CoalCS718156839Iwjug candice Carrion RN[address] StreetTXTX[address] 09432WFAGYAOZMSAMLLUWERIIGH5157 -09-10T17:36:561.2.840.655276.1 .72.3.15|1.2.840.721699.1.13.10 4.2.7.2.727879_1895662873 2022-07-30 20:59:40 29787298508500-01-20D85:59:40 [facility]A [facility]ZSPECIAL [facility]ITALZ, LAWANDAFACILITY: SLSLBilkatie #: [id number] Room: [address] [place] [address] #: [id number] : 1975DATE OF ADMISSION: 07/30/2022ATE OF CONSULTATION: 07/30/2022REQUESTING PHYSICIAN:IT DISASTER RECOVERY MANAGER: Yaima Gomez, MDConsultation is with lower quadrant pain, possible tubo-ovarianabscesses.HISTORY OF PRESENT ILLNESS: 47-year-old female with history ofpain, left lower quadrant that began three days ago, was at [facility] and transferred here this morning. Thought [...] this. Leukocytosis. Agree withcurrent plan, antibiotics, and CHEMISTRY LECTURER. We will follow with you.JDF/MODLDD: 07/30/2022 17:17:10DT: 07/30/2022 20:59:40Job #: [id number] signed by: YAIMA GOMEZ at 2022-07-30 17:17:10.388QETxcxnsoeboww8392- 05-15T20:59:501866-43-22Z82:29: [id number], NAOWSUUVYTUCHKPHDSOMH4237-96-02 T11:29:34
--- NOTE | 2023-02-16 12:30 | RAD REPORT ---
EXAM DESCRIPTION: RAD - Chest Single View - 02/16/2023 12:22 pm CLINICAL HISTORY: BLUNT CHEST TRAUMA Chest pain. COMPARISON: <Comparisons> FINDINGS: Portable technique limits examination quality. The lungs are grossly clear. The heart is normal in size. No displaced fractures. IMPRESSION: No acute intrathoracic process suspected.
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
[2023-02-16 13:35] VITALS: TEMP 98.5; O2SAT 99
[2023-02-16 13:36] VITALS: BP 133/106
== END 2023-02-16 13:27 | disposition home or self-care (01) ==
LOC: ER 10:31
DX: S20.219A Contusion of unspecified front wall of thorax, initial encounter (principal)
CPT/HCPCS: 71045; 96372; 99285

== ENCOUNTER 2023-02-17 08:55 | Emergency (ER) | payer SELFPAY ==
--- OUTSIDE RECORDS SUMMARY | 2023-02-17 09:11 | XMS REPORT | Continuity of Care Document ---
:1975 Author Organization Formerly [facility] t Address [address] [facility] [address] [place] [address] Care Team Providers Name Role Phone Pcp, Patient Does Not Have A Primary Care Physician [phone] 00-0000 MIR PASCUAL Attending Clinician Unavailable JUJU TAI Attending Clinician Unavailable KATHY ZEPEDA Attending Clinician Unavailable MURRAY ELISE Attending Clinician Unavailable Caty Wang Attending Clinician Unavailable Doctor Unassigned, [place] Attending Clinician Unavailable Desi Sotelo LVN Attending Clinician Zohaib Parsons MD Attending Clinician [phone] Ryne Yoder MD Attending Clinician Meghana Felix MD Attending Clinician RYNE YODER Attending Clinician Unavailable Santiago Whiteside MD Attending Clinician [phone] Kathy Zepeda MD Attending Clinician Unavailable Bessy Shah MD Attending Clinician Juju Tai DO Attending Clinician Sonido ECHEVERRIA, Amanda Tejada Attending Clinician [phone] Juan J ECHEVERRIA, Mir Meeks Attending Clinician Merchant ECHEVERRIA, Goyo Attending Clinician GOYO HANKINS Attending Clinician Unavailable Jason DYER, Murray Attending Clinician Vijay Jenkins Attending Clinician Fredis ECHEVERRIA, Madelynlemuel In Attending Clinician Fredrick ECHEVERRIA, Aida Barreto Attending Clinician [phone] Yariel ECHEVERRIA, Clifton Negro Attending Clinician [phone] Debra ECHEVERRIA, Kristin Cano Attending Clinician [phone] 1 KRISTIN SHAH Attending Clinician Unavailable Servando ECHEVERRIA, Les Attending Clinician Christin ECHEVERRIA, Nena Attending Clinician Matias ECHEVERRIA, Leonid Orr Attending Clinician CLIFTON DE LUNA Attending Clinician Unavailable DAYRON FOSTER Attending Clinician Unavailable Cristian ECHEVERRIA, Dayron Hogan Attending Clinician [phone] 1 ZAIN SALAS Attending Clinician Unavailable AMANDA [...] Iqra kes y failure y failure 00:00: [facility] wale with with 00 Center hypoxia hypoxia Encephalop Encephalop Disease Active [facility] athy acute athy acute 8-14 Iqra kes 00:00: Medical 00 Center NIGLE (acute NIGEL (acute Disease Active [facility] kidney kidney 8-14 [facility] injury) injury) 00:00: Medical 00 Center Tubo-ovari Tubo-ovari Disease Active [facility] an abscess an abscess 5-21 Iqra kes 00:00: Medical 00 Center Abdominal Abdominal Disease Recurre [facility] infection infection nce 5-16 [facility] 00:00: Medical 00 [place] Pelvic Pelvic Disease Active [facility] abscess [...] s Branch Grapefru Propensi Active Unknown - 0 Uni vers it ty to See comments [...] s Branch Mushroom Propensi Active Unknown - Uni vers ty to See comments 11-24 [...] Center Products ASPIRIN Allergy Active High Anaphylaxis 3-0 SLE H 5-15 00:00: 00 MUSHROOM Allergy Active High Anaphylaxis 3-0 SL EH 5-15 00:00: 00 SHELLFIS Allergy [...] Date Stop Date Quantity Comments Source History SDVT [facility] Alcohol Std Drinks Medica l Center History SDOH [facility] Alcohol Comment Medical C enter History SDVT [facility] Transport Non-Med Medical Center Sexual orientation [facility] Gender identity Universit y of [facility] Cigarettes smoked 2022-11-24 2022-11-24 Univers ity of current (pack per 00:00:00 00:00:00 [facility] ) - Reported Branch Cigarette 2022-11-24 2022-11-24 University of pack-years 00:00:00 00:00:00 [facility] Tobacco use and 2022-11-24 2022-11-24 Smokeless Universit y of exposure 00:00:00 00:00:00 tobacco non-user [facility] Alcohol intake 2022-11-24 2022-11-24 Ex-drinker University 00:00:00 00:00:00 (finding) [facility] History of Social 2022-11-07 2022-11-[address] [facility] function 00:00:00 00:00:00 Medical Center History of tobacco 2022-11-03 Passive smoker Un iversity of use 00:00:00 [facility] History TNOH 2022-08-06 2022-08-[address] [facility] Transport Med 00:00:00 00:00:[address] [facility] 2022-08-06 2022-08-[address] [facility] Housing Unable to 00:00:00 00:00:00 Medical Center Pay History [facility] 2022-08-06 2022-08-[address] [facility] Housing Places 00:00:00 00:00:00 Medical Ce nter Lived History [facility] 2022-08-06 2022-08-[address] [facility] Housing Homeless 00:00:00 00:00:00 Medical Center Last Year History [facility] 2019-02-15 2019-02-[address] [facility] Alcohol Binge 00:00:00 00:00:[address] History [facility] 2019-02-15 2019-02-[address] [facility] Alcohol Frequency 00:00:00 00:00:00 Medical Center Sex [birth year] Univers[facility] of 00:00:00 00:00:00 [facility] Smoking Status Start Date Stop Date Source Ex-smoker 2022-11-24 00:00:00 2022-11-24 [facility] [place] 00:00:00 Medical Branch Occasional tobacco 2022-07-30 00:00:00 [facility] smoker Center Medications Ordered Filled Start Stop Current Ordering Indication Dosage Frequency Signature Comments Components Source Medication Medication Date Date Medication? Clinician (SIG) Name Name QUEtiapine 2022-0 Yes 25mg Take 1 Unive rs 25 mg 9-14 tablet by ity of tablet 15:09: mouth in [place] [address] the Medical morning Branch and 1 tablet in the evening. furosemide 3-0 Yes 20mg Take 1 Unive rs (LASIX) 20 9-14 tablet by ity of mg tablet 15:09: mouth in [place] [address] the Medical morning. Branch QUEtiapine 2022-0 Yes 25mg Take 1 Unive rs 25 mg 9-14 tablet by ity of tablet 15:09: mouth in [place] [address] the Medical morning Branch and 1 tablet in the evening. furosemide 3-0 Yes 20mg Take 1 Unive rs (LASIX) 20 9-14 tablet by ity of mg tablet 15:09: mouth in [place] [address] the Medical morning. Branch KCL 2022-0 Yes 20meq 20 mEq, Univers (KLOR-CON 9-14 Oral, ity of M20) tablet 14:00: DAILY, [facility] 20 mEq 00 First dose Medical on [facility] Branch 11/29/22 at 0900, Until Discontinu ed, Routine QUEtiapine 2023-0 Yes 25mg Take 1 Unive rs 25 mg 9-13 tablet by ity of tablet 21:49: mouth in [place] [address] the Medical morning Branch and 1 tablet in the evening. furosemide 3-0 Yes 20mg Take 1 Unive rs (LASIX) 20 9-13 tablet by ity of mg tablet 21:49: mouth in [place] [address] the Medical morning. Branch QUEtiapine 2022- Yes 25mg Take 1 Unive rs 25 mg 11-28 tablet by ity of tablet 21:49: mouth in [place] [address] the Medical morning Branch and 1 tablet in the evening. furosemide 2022- Yes 20mg Take 1 Unive rs (LASIX) 20 11-28 tablet by ity of mg tablet 21:49: mouth in [place] [address] the Medical morning. Branch albuterol 2022- No [...] [place] 14 :00 bedtime. Medical Branch amLODIPine 2022- [...] tablet in the evening. amLODIPine 2022-0 Yes [id number] 2.5mg Take 1 Univers 2.5 mg 11-28 tablet by ity of tablet 00:00: mouth in [place] 00 the Medical morning. Branch metoprolol 3-0 Yes [id number] 12.5mg Take 0.5 Univers tartrate 25 9-13 tablets by it y of mg tablet 00:00: [place] the Medical morning Branch and 0.5 tablets in the evening. atorvastati 3-0 Yes [id number] 40mg Take 1 Univers n 40 mg 9-13 tablet by ity of tablet 00:00: mouth at [place] 00 bedtime. Medical Branch amLODIPine 3-0 Yes [id number] 2.5mg Take 1 Univers 2.5 mg 9-13 tablet by ity of tablet 00:00: mouth in [place] 00 the Medical morning. Branch metoprolol 3-0 Yes [id number] 12.5mg Take 0.5 Univers tartrate 25 9-13 tablets by it y of mg tablet 00:00: [place] 00 the Medical morning Branch and 0.5 tablets in the evening. atorvastati 2022-0 Yes [id number] 40mg Take 1 Univers n 40 mg 9-13 tablet by ity of tablet 00:00: mouth at [place] 00 bedtime. Medical Branch amLODIPine 2022-0 Yes [id number] 2.5mg Take 1 Univers 2.5 mg 9-13 tablet by ity of tablet 00:00: mouth in [place] 00 the Medical morning. Branch metoprolol 3-0 Yes [id number] 12.5mg Take 0.5 Univers tartrate 25 9-13 tablets by it y of mg tablet 00:00: [place] 00 the Medical morning Branch and 0.5 tablets in the evening. atorvastati 3-0 Yes [id number] 40mg Take 1 Univers n 40 mg 9-13 tablet by ity of tablet 00:00: mouth at [place] 00 bedtime. Medical Branch amLODIPine 3-0 Yes [id number] 2.5mg Take 1 Univers 2.5 mg 9-13 tablet by ity of tablet 00:00: mouth in [place] 00 the Medical morning. Branch metoprolol 3-0 Yes [id number] 12.5mg Take 0.5 Univers tartrate 25 9-13 tablets by it y of mg tablet 00:00: [place] 00 the Medical morning Branch and 0.5 tablets in the evening. atorvastati 2023-0 Yes [id number] 40mg Take 1 Univers n 40 mg [...] Routine, Pain (scale 1-3) nitroglycer 2022- No [id number] .8mg 0.8 mg, Univers in 11-27 Sublingual ity of (NITROSTAT) 20:15: 19:15 , ONCE, 1 [place] sublingual 00 :00 dose, On Medic al tablet 0.8 e Branch mg 11/27/22 at 1515, KASSIDY iopamidol 2022- No [id number] 80mL 80 mL, U nivers (ISOVUE 11-27 Intravenou ity o f 370-500 mL) 20:15: 19:25 s, ONCE, 1 [place] injection 00 :00 dose, On Medica l 80 mL e Branch 11/27/22 at 1515, Routine acetaminoph 2022- No 1{tbl} 1 tablet, Univers en-codeine 11-27 Oral, ity of (TYLENOL 11:15: 10:29 ONCE, 1 [place] #3) 300-30 00 :00 dose, On Medic al mg tablet 1 Tue Branch tablet 11/27/22 at 0615, Routine acetaminoph 0 2022- No 1{tbl} 1 tablet, Univers en-codeine 11-26 Oral, ity of (TYLENOL 18:45: 18:50 ONCE, 1 [place] #3) 300-30 00 :00 dose, On Medic al mg tablet 1 Mon Branch tablet 11/26/22 at 1345, Routine metoprolol Yes 12.5mg 12.5 mg, U nivers tartrate 11-26 Oral, BID, ity o f (LOPRESSOR) 13:00: First dose [place] tablet 12.5 00 on Mon Medica l mg 11/26/22 at Branch 0800, Until Discontinu ed, Routine perflutren 2022- No [id number] 3mL 3 mL, IV Univers protein-A 11-25 Push, ity of microsphr 15:00: 15:00 [place]CE, 1 [place] (OPTISON) 00 :00 dose, On Medica l injection 3 [facility] mL 11/25/22 at 1000, Routine pantoprazol Yes 40mg 40 mg, Univ ers e 11-25 Oral, ity of (PROTONIX) 14:00: DAILY, [place] EC tablet 00 First dose Medi wale 40 mg on [facility] 11/25/22 at 0900, Until Discontinu ed, Routine clopidogreL 2022- No 75mg 75 mg, Uni vers (PLAVIX) 75 11-25 Oral, ity of mg tablet 14:00: 14:47 DAILY, [place] 75 mg 00 :08 First dose Medical on [facility] 11/25/22 at 0900, Until Discontinu ed, Routine magnesium 2022- No 4g 4 g, IV Univ ers sulfate in 11-25 Piggyback, it y of water 4 04:15: 07:19 at 25 [place] gram/50 mL 00 :00 mL/hr Medical (8 %) IV Administer Branc h Piggyback 4 over 120 g Minutes, ONCE, 1 dose, On [facility] 11/24/22 at 2315, Routine atorvastati Yes 40mg 40 mg, Univ ers n (LIPITOR) 11-25 Oral, QHS, it y of tablet 40 02:00: First dose [place] mg 00 on [facility] Medical 11/24/22 at Branch 2100, Until [...] Rang e, Dosing and Testing: &nbs p;FOR [place], [facility], AND [facility] ONLY &nbs p; - aPTT < 35: [...] :00 by mouth Center daily. amLODIPine 2022-0 4- No 10mg QD Take [address] [facility] (NORVASC) 8-30 -29 tablet (10 Reyna es 10 MG 00:00: 23:59 mg total) Medica l tablet 00 :00 by mouth Center daily. amLODIPine 2022-0 4- No 10mg QD Take [address] [facility] (NORVASC) 8-30 -29 tablet (10 [place]a es 10 MG 00:00: 23:59 mg total) Medica l tablet 00 :00 by mouth Center daily. amLODIPine 2022-0 4- No 10mg QD Take [address] [facility] (NORVASC) 8-14 11- tablet (10 [place] es 10 MG 00:00: 23:59 mg total) Medica l tablet 00 :00 by mouth Center daily. amLODIPine 2022-0 4- No 10mg QD Take [address] (NORVASC) 8-14 11- tablet (10 Reyna es 10 MG 00:00: 23:59 mg total) Medica l tablet 00 :00 by mouth Center daily. thiamine 3-0 2023- No 100mg QD Take 1 [facility] 100 MG 11-14- tablet [facility] tablet 00:00: 23:59 (100 mg Medical 00 :00 total) by Center mouth daily for 30 days. thiamine 3-0 2023- No 100mg QD Take 1 [facility] 100 MG 8- tablet [facility] tablet 00:00: 23:59 (100 mg Medical 00 :00 total) by Center mouth daily for 30 days. thiamine 3-0 2023- No 100mg QD Take 1 [facility] 100 MG 11-14- tablet [facility] tablet 00:00: 23:59 (100 mg Medical 00 :00 total) by Center mouth daily for 30 days. thiamine 2023-0 2023- No 100mg QD Take 1 [facility] 100 MG 8-15 12- tablet [facility] tablet 00:00: 23:59 (100 mg Medical 00 :00 total) by Center mouth daily for 30 days. thiamine 2023-0 2023- No 100mg QD Take 1 [facility] 100 MG 8-15 12- tablet [facility] tablet 00:00: 23:59 (100 mg Medical 00 :00 total) by Center mouth daily for 30 days. thiamine 2023-0 2023- No 100mg QD Take 1 [facility] 100 MG 11-14 tablet [facility] tablet 00:00: 23:59 (100 mg Medical 00 :00 total) by Center mouth daily for 30 days. thiamine 2022- No 100mg QD Take 1 [facility] 100 MG 11-14 tablet [facility] tablet 00:00: 23:59 (100 mg Medical 00 :00 total) by Center mouth daily for 30 days. atorvastati 2023- No 40mg QD Take 1 [...] 00 :00 by mouth Center nightly. QUEtiapine 2023-0 2023- No 25mg Q.5D Take [...] mouth Center in the morning. furosemide 2022-0 3- No 20mg QD Take [address] [facility] [...] all this for 7 days. metroNIDAZO 3-0 3- No 500mg Q.5D Take 1 CH I [...] er tablet in the morning. NIFEdipine 2022-0 2023- No 60mg QD Take [address] [facility] (PROCARDIA- 5-20 05-27 tablet (60 L ukes XL) 60 MG 00:00: 00:00 mg total) Me dical (OSM) 24 hr 00 :00 by mouth Cent er tablet in the morning. NIFEdipine 2022-0 2023- No 60mg QD Take [...] mouth Center nightly. metroNIDAZO 2022-2022- No 500mg Q.[id number] Take [address] [facility] (FLAGYL) 08-03 [id number] tablet [facility] 500 MG 00:00: 00:00 3D [...] Center nightly. metroNIDAZO 3-0 2023- No 500mg Q.[id number] Take [address] [facility] (FLAGYL) 08-03- [id number] tablet [facility] 500 MG 00:00: 00:00 3D [...] Center nightly. metroNIDAZO 3-0 2023- No 500mg Q.[id number] Take [address] [facility] (FLAGYL) 08-03 [id number] tablet [facility] 500 MG 00:00: 00:00 3D [...] Center nightly. metroNIDAZO 3-0 3- No 500mg Q.[id number] Take [address] [facility] (FLAGYL) 08-03 [id number] tablet [facility] 500 MG 00:00: 00:00 3D [...] Center nightly. metroNIDAZO 3-0 2023- No 500mg Q.[id number] Take [address] [facility] (FLAGYL) 08-03 [id number] tablet [facility] 500 MG 00:00: 00:00 3D [...] Center nightly. metroNIDAZO 3-0 2023- No 500mg Q.[id number] Take [address] [address] [facility] (FLAGYL) 08-03 [id number] tablet [facility] 500 MG 00:00: 00:00 3D [...] Center nightly. metroNIDAZO 3-0 3- No 500mg Q.[id number] Take [address] [facility] [address] [facility] (FLAGYL) 08-03 [id number] tablet [facility] 500 MG 00:00: 00:00 3D [...] Center nightly. metroNIDAZO 2023-0 2023- No 500mg Q.[id number] Take [address] [facility] (FLAGYL) 08-03 [id number] tablet [facility] 500 MG 00:00: 00:00 3D (500 mg Medical tablet 00 :00 total) by Center mouth in the morning and 1 tablet (500 mg total) at noon and 1 tablet (500 mg total) in the evening. . doxycycline 2022-0 2023- No 100mg Q.5D Take [address] (MONODOX) 5 05-21 capsule [facility] 100 MG 00:00: 00:00 [...] Q.5D Take [address] (MONODOX) 5-21 capsule [facility] 100 MG 00:00: 00:00 (100 mg Medical capsule 00 :00 total) by Center mouth in the morning and 1 capsule (100 mg total) before bedtime. doxycycline 2022-0 2023- No 100mg Q.5D Take [address] (MONODOX) 5-21 capsule [facility] 100 MG 00:00: 00:00 (100 [...] mouth Medica l tablet 09 :00 daily. [place] divalproex 2022- No epilepsy 125mg QD Take [address] (DEPAKOTE) 5-15 05-15 mg by [facility] 125 MG EC 14:52: 00:00 mouth Medica l tablet 09 :00 daily. [place] divalproex 2022- No epilepsy 125mg QD Take [address] (DEPAKOTE) 5-15 05-15 mg by [facility] 125 MG EC 14:52: 00:00 mouth Medica l tablet 09 :00 daily. [place] divalproex 2022- No epilepsy 125mg QD Take [address] (DEPAKOTE) 5-15 05-15 mg by [facility] 125 MG EC 14:52: 00:00 mouth Medica l tablet 09 :00 daily. [place] divalproex 2022- No epilepsy 125mg QD Take [address] (DEPAKOTE) 5-15 05-15 mg by [facility] 125 MG EC 14:52: 00:00 mouth Medica l tablet 09 :00 daily. [place] divalproex 2022- No epilepsy 125mg QD Take [address] (DEPAKOTE) 5-15 05-15 mg by [facility] 125 MG EC 14:52: 00:00 mouth Medica l tablet 09 :00 daily. [place] divalproex 2022- No epilepsy 125mg QD Take [address] (DEPAKOTE) 5-15 05-15 mg by [facility] 125 MG EC 14:52: 00:00 mouth Medica l tablet 09 :00 daily. [place] divalproex 2022- No epilepsy 125mg QD Take [address] (DEPAKOTE) 5-15 05-15 mg by [facility] 125 MG EC 14:52: 00:00 mouth Medica l tablet 09 :00 daily. [place] divalproex 2018-03 Yes epilepsy 125mg QD Take [address] (DEPAKOTE) 2-04 mg by [facility] 125 MG EC 10:36: mouth Medical tablet 04 daily. [place] divkyproex 2018-03 Yes epilepsy 125mg QD Take [address] (DEPAKOTE) 2-04 mg by [facility] 125 MG EC 10:36: mouth Medical tablet 04 daily. [place] divalproex 2018-03 Yes epilepsy 125mg QD Take [address] (DEPAKOTE) 2-04 mg by [facility] 125 MG EC 10:36: mouth Medical tablet 04 daily. [place] famotidine 2018-03 Yes 1{tbl} Take 1 [facility] [...] Oxygen saturation in 2022-11-29 01:59:00 93 /min [facility] Arterial blood by [facility] Pulse oximetry Branch Systolic blood 2022-11-29 01:23:00 126 mm[Hg] Univer sity pressure [facility] Diastolic blood 2022-11-29 01:23:00 75 mm[Hg] [facility] Heart rate 2022-11-29 01:23:00 72 /min [facility] Body temperature 2022-11-29 01:23:00 36.94 Nahomi [facility] Body weight 2022-11-28 05:16:00 70.421 kg [facility] BMI 2022-11-28 05:16:00 28.40 kg/m2 [facility] Body height 2022-11-24 16:52:00 157.5 cm [facility] WEIGHT 2022-11-12 07:05:00 74.6 [...] cm Heart rate 2022-11-13 20:42:00 75 /min [facility] Respiratory rate 2022-11-13 20:42:00 18 /min [facility] Oxygen saturation in 2022-11-13 20:42:00 98 /min [facility] Arterial blood by Medical Ce nter Pulse oximetry Systolic blood 2022-11-13 16:00:00 124 mm[Hg] [facility] Diastolic blood 2022-11-13 16:00:00 74 mm[Hg] [facility] Body temperature 2022-11-13 16:00:00 36.44 Nahomi [facility] Body weight 2022-11-12 07:05:00 74.6 kg [facility] BMI 2022-11-12 07:05:00 30.08 kg/m2 [facility] Heart rate 2022-08-11 12:33:33 76 /min [facility] Respiratory rate 2022-08-11 12:33:33 18 /min [facility] Oxygen saturation in 2022-08-11 12:33:33 97 /min [facility] Arterial blood by Medical Ce nter Pulse oximetry Body temperature 2022-08-11 12:33:11 36.56 Nahomi [facility] Systolic blood 2022-08-11 12:32:45 129 mm[Hg] [facility] Diastolic blood 2022-08-11 12:32:45 80 mm[Hg] [facility] Body height 2022-08-05 19:35:00 157.5 cm [facility] Body weight 2022-08-05 19:35:00 58.968 kg [facility] BMI 2022-08-05 19:35:00 23.78 kg/m2 [facility] Procedures Procedure Date / Time Performing Clinician Source Performed REFERRAL- 2023-01-24 06:01:00 Doctor Unassigned, [facility] REQUEST/RESPONSE Name Medical Branch MAGNESIUM 2022-11-28 09:22:00 Casi Maddox [facility] BASIC METABOLIC PANEL 2022-11-28 09:22:00 Casi Maddox [facility] (NA, K, CL, CO2, Medical Branch GLUCOSE, BUN, CREATININE, CA) CBC WITH DIFF 2022-11-28 09:22:00 Casi Maddox [facility] CT ANGIOGRAPHY 2022-11-27 19:24:21 Tori Hanna [facility] CORONARIES WITH CARDIAC [facility] CALCIUM SCORE CT HEAD WO CONTRAST 2022-11-27 17:24:05 Milagros Choe [facility] CBC WITHOUT DIFF 2022-11-27 09:15:00 Joel Willis [facility] MAGNESIUM 2022-11-26 09:21:00 Sue Miller [facility] HEPATIC FUNCTION PANEL 2022-11-26 09:21:00 Joel Willis [facility] ([id number]) (ALB,T.PRO,BILI Medical Branch T,BU/BC,ALT,AST,ALK PHOS) BASIC METABOLIC PANEL 2022-11-26 09:21:00 [facility] ([facility], K, CL, CO2, Medical Branch GLUCOSE, BUN, CREATININE, CA) CBC WITH DIFF 2022-11-26 09:21:00 Paul [facility] ACTIVATED PARTIAL 2022-11-25 22:48:00 Lazaro [facility] EKG-12 LEAD 2022-11-25 17:52[facility] 2022-11-25 17:51:00 Philip Chris [facility] HB ECG ROUTINE & RHYTHM 2022-11-25 17:39:36 Lazaro [facility] STRIP [facility] Branch ACTIVATED PARTIAL 2022-11-25 15:42:00 Lazaro [facility] TRANSTHORACIC ECHO (TTE) 2022-11-25 14:57:34 Joel Willis [facility] COMPLETE W/ CONTRAST Medical [facility] MAGNESIUM 2022-11-25 09:20:00 Lazaro [facility] BASIC METABOLIC PANEL 2022-11-25 09:20:[address] [facility] (NA, K, CL, CO2, Medical Branch GLUCOSE, BUN, CREATININE, CA) URINE DRUG (IMMUNOASSAY) 2022-11-25 07:32:00 Joel Willis [facility] - COMPREHENSIVE DRUG Medical [facility] SCREEN GC & CHLAMYDIA AMPLIFIED 2022-11-25 07:32:00 Joel Willis [facility] ASSAY [facility] URINE DRUG (LCMSMS) - 2022-11-25 07:32:[address] [facility] SYNTHETIC OPIATES PANEL Medical Branch CBC WITHOUT DIFF 2022-11-25 07:31:00 Lazaro [facility] ACTIVATED PARTIAL 2022-11-25 07:31:00 Lazaro [facility] URINALYSIS 2022-11-25 07:31:00 Lazaor [facility] MAGNESIUM 2022-11-25 01:31:00 [facility] BASIC METABOLIC PANEL 2022-11-25 01:31:00 [facility] (NA, K, CL, CO2, Medical Branch GLUCOSE, BUN, CREATININE, CA) ACTIVATED PARTIAL 2022-11-25 01:31:00 Lazaro [facility] TROPONIN I 2022-11-24 23:01:00 Lazaro [facility] BLOOD CULTURE SCREEN 2022-11-24 22:57:[address] [facility] XR CHEST 1 VW 2022-11-24 21:30:59 Lazaro [facility] US ABDOMEN LIMITED 2022-11-24 21:30:31 Lazaro [facility] XR CHEST 1 VW 2022-11-24 20:37:00 Lazaro [facility] CT HEAD WO CONTRAST 2022-11-24 18:42:54 Lazaro [facility] ACTIVATED PARTIAL 2022-11-24 17:43:00 Lazaro [facility] CBC WITH DIFF 2022-11-24 16:39:[facility]A SCREEN BY 2022-11-24 16:39:00 [facility], NARES [facility] TROPONIN I 2022-11-24 16:34:00 Lazaro [facility] THYROID STIMULATING 2022-11-24 16:34:00 [facility] HEPATIC FUNCTION PANEL 2022-11-24 16:34:00 [id number] (ALB,T.PRO,BILI Medical Branch T,BU/BC,ALT,AST,ALK PHOS) BASIC METABOLIC PANEL 2022-11-24 16:34:00 [facility] (NA, K, CL, CO2, Medical Branch GLUCOSE, BUN, CREATININE, CA) LIPID PANEL 2022-11-24 16:34:00 [id number]TOTAL Medical Branch CHOLESTEROL, TRIGLYCERIDES, HDL) GLYCOSYLATED HEMOGLOBIN 2022-11-24 16:34:00 Joel Willis [facility] (A1C) Medical Branch PROTHROMBIN TIME / INR 2022-11-24 16:34:[address] [facility] HEPATITIS B SURFACE 2022-11-24 16:34:00 Lazaro [facility] ANTIBODY Medical Branch HEPATITIS B SURFACE 2022-11-24 16:34:00 Lazaro [facility] ANTIGEN [facility] HCV ANTIBODY 2022-11-24 16:34:00 Lazaro [facility] HEPATITIS A VIRUS 2022-11-24 16:34:00 Lazaro [facility] ANTIBODY IGM [facility] N-TERMINAL PRO-BNP 2022-11-24 16:34:00 Lazaro [facility] HIV 1/2 AG-AB WITH 2022-11-24 16:34:00 Lazaro [facility] REFLEX [facility] EKG-12 LEAD 2022-11-24 16:22:20 [facility] POCT-GLUCOSE METER 2022-11-13 12:03:00 Merchant [facility] PHOSPHORUS 2022-11-13 04:55:00 Merchant [facility] MAGNESIUM 2022-11-13 04:55:00 Merchant [facility] CBC W/PLT COUNT & AUTO 2022-11-13 04:55:00 Merchant [facility] DIFFERENTIAL [place] CBC W/PLT COUNT & AUTO 2022-11-13 04:55:00 Merchant [facility] Center POCT-GLUCOSE METER 2022-11-12 21:27:00 Merchant, [facility] POCT-GLUCOSE METER 2022-11-12 18:07:00 Merchant, [facility] POCT-GLUCOSE METER 2022-11-12 13:01:00 Merchant, [facility] POCT-GLUCOSE METER 2022-11-12 06:34:00 Merchant, [facility] BASIC METABOLIC PANEL 2022-11-12 04:44:00 Merchant, [facility] PHOSPHORUS 2022-11-12 04:44:00 Merchant, [facility] MAGNESIUM 2022-11-12 04:44:00 Merchant, [facility] CBC W/PLT COUNT & AUTO 2022-11-12 04:44:00 Merchant, [facility] CBC W/PLT COUNT & AUTO 2022-11-12 04:44:00 Merchant, [facility] POCT-GLUCOSE METER 2022-11-11 23:33:00 Merchant, [facility] POCT-GLUCOSE METER 2022-11-11 17:24:00 Merchant, [facility] POCT-GLUCOSE METER 2022-11-11 12:50:00 Merchant, [facility] POCT-GLUCOSE METER 2022-11-11 07:10:00 Merchant, [facility] BASIC METABOLIC PANEL 2022-11-11 04:41:00 Merchant, [facility] PHOSPHORUS 2022-11-11 04:41:00 Merchant, [facility] MAGNESIUM 2022-11-11 04:41:00 Merchant, [facility] CBC W/PLT COUNT & AUTO 2022-11-11 04:41:00 Merchant, [facility] CBC W/PLT COUNT & AUTO 2022-11-11 04:41:00 Merchant, [facility] POCT-GLUCOSE METER 2022-11-11 00:15:00 Merchant, [facility] POCT-GLUCOSE METER 2022-11-10 17:10:00 Merchant, [facility] POCT-GLUCOSE METER 2022-11-10 16:56:00 Merchant, [facility] POCT-GLUCOSE METER 2022-11-10 12:12:00 Merchant, [facility] POCT-GLUCOSE METER 2022-11-10 06:57:00 Merchant, [facility] BASIC METABOLIC PANEL 2022-11-10 04:59:00 Merchant, [facility] PHOSPHORUS 2022-11-10 04:59:00 Merchant, [facility] MAGNESIUM 2022-11-10 04:59:00 Merchant, [facility] CBC W/PLT COUNT & AUTO 2022-11-10 04:59:00 Merchant, [facility] CBC W/PLT COUNT & AUTO 2022-11-10 04:59:00 Merchant, [facility] POCT-GLUCOSE METER 2022-11-09 23:21:00 Merchant, [facility] POCT-GLUCOSE METER 2022-11-09 17:12:00 Merchant, [facility] POCT-GLUCOSE METER 2022-11-09 12:09:00 Merchant, [facility] VANCOMYCIN LEVEL, TROUGH 2022-11-09 09:28:00 Clyde Florentino [facility] POCT-GLUCOSE METER 2022-11-09 05:53:00 Merchant, [facility] BASIC METABOLIC PANEL 2022-11-09 03:49:00 Juan J [facility] PHOSPHORUS 2022-11-09 03:49:00 Ali [facility] MAGNESIUM 2022-11-09 03:49:00 Ali [facility] CBC W/PLT COUNT & AUTO 2022-11-09 03:49:00 Ali [facility] CBC W/PLT COUNT & AUTO 2022-11-09 03:49:00 [facility] POCT-GLUCOSE METER 2022-11-08 23:58:00 Merchant, [facility] BASIC METABOLIC PANEL 2022-11-08 18:20:00 [facility] POCT-GLUCOSE METER 2022-11-08 17:17:00 Merchant [facility] POCT-GLUCOSE METER 2022-11-08 12:24:00 [facility] POCT-GLUCOSE METER 2022-11-08 05:58:00 [facility] BASIC METABOLIC PANEL 2022-11-08 04:09:00 [facility] PHOSPHORUS 2022-11-08 04:09:00 [facility] MAGNESIUM 2022-11-08 04:09:00 Juan J [facility] CBC W/PLT COUNT & AUTO 2022-11-08 04:09:00 [facility] CBC W/PLT COUNT & AUTO 2022-11-08 04:09:00 [facility] XR ABDOMEN/KUB 1 VIEW 2022-11-07 21:11:00 [facility] BASIC METABOLIC PANEL 2022-11-07 17:58:00 [facility] BLOOD CULTURE 2022-11-07 10:27:00 Tiffanie Noel [facility] POCT-GLUCOSE METER 2022-11-07 06:01:00 Amanda Head [facility] Haresh[facility]umar Center HIGH SENSITIVITY 2022-11-07 03:17:00 [facility]OPONIN I Center BASIC METABOLIC PANEL 2022-11-07 03:17:00 Agustinjackie Suarez [facility] Center PHOSPHORUS 2022-11-07 03:17:00 Agustin Erick [facility] Ignacio [place] MAGNESIUM 2022-11-07 03:17:00 Agustin Erick [facility] CBC W/PLT COUNT & AUTO 2022-11-07 03:17:00 Agustin Suarez [facility] DIFFERENTIAL [facility] CBC W/PLT COUNT & AUTO 2022-11-07 03:17:[address] [facility] DIFFERENTIAL Center POCT-GLUCOSE METER 2022-11-07 00:13:00 Amanda Head [facility] Hareshkumar [place] HIGH SENSITIVITY 2022-11-06 21:18:00 Tiffanie Noel [facility] TROPONIN I [place] BLOOD CULTURE 2022-11-06 14:48:00 Tesha Valladares [facility] URINALYSIS W/ REFLEX 2022-11-06 14:48:00 Tesha Valladares [facility] URINE CULTURE [facility] PT/APTT 2022-11-06 14:47:00 Tesha Valladares [facility] HIGH SENSITIVITY 2022-11-06 14:47:00 Tiffanie Noel [facility] TROPONIN I [place] BLOOD GAS, ARTERIAL 2022-11-06 14:46:00 [facility] CHEST 1 VIEW PORTABLE 2022-11-06 12:18:35 Tesha Valladares [facility] / BEDSIDE [facility] BLOOD CULTURE 2022-11-06 10:38:00 [facility] LACTIC ACID, VENOUS 2022-11-06 10:38:00 [facility] PROCALCITONIN 2022-11-06 10:38:00 Tesha Valladares [facility] HIGH SENSITIVITY 2022-11-06 10:38:00 [facility] TROPONIN I [facility] POCT-BLOOD GASES, 2022-11-06 10:38:00 Tai, [facility] ARTERIAL Center POCT-SODIUM 2022-11-06 10:38:00 Tai, [facility] POCT-POTASSIUM 2022-11-06 10:38:00 [facility] PO[facility]-HEMO[facility]IN 2022-11-06 10:38:00 Elvia, [facility] POCT-HEMATOCRIT 2022-11-06 10:38:00 Elvia, [facility] POCT-GLUCOSE 2022-11-06 10:38:00 Tai, [facility] ECG 12-LEAD 2022-11-06 10:26:42 Unknown, 7 [facility] ECG 12-LEAD 2022-11-06 10:24:58 Unknown, 7 [facility] ECG 12-LEAD 2022-11-06 10:23:56 Unknown, 7 [facility] ECG 12-LEAD 2022-11-06 10:23:56 Unknown, 7 [facility] POCT-GLUCOSE METER 2022-11-06 10:09:00 Tai [facility] CT BRAIN WITHOUT IV 2022-11-06 08:46:36 Jhony Curtis [facility] CONTRAST [place] POCT-GLUCOSE METER 2022-11-06 05:34:00 Tai, [facility] BASIC METABOLIC PANEL 2022-11-06 04:38:00 [facility] [place] PHOSPHORUS 2022-11-06 04:38:00 [facility] MAGNESIUM 2022-11-06 04:38:00 [facility] CBC W/PLT COUNT & AUTO 2022-11-06 04:38:00 [facility] CBC W/PLT COUNT & AUTO 2022-11-06 04:38:00 Saeid [facility] POCT-GLUCOSE METER 2022-11-05 23:23:00 Elvia [facility] POCT-GLUCOSE METER 2022-11-05 17:17:00 [facility]KUB 1 VIEW 2022-11-05 14:12:00 Elvia [facility] POCT-GLUCOSE METER 2022-11-05 12:42:00 Elvia [facility] POCT-GLUCOSE METER 2022-11-05 06:14:00 Elvia [facility] BASIC METABOLIC PANEL 2022-11-05 03:34:00 [facility] [place] [facility] 2022-11-05 03:34:00 [facility]in [facility], [facility] [place] MAGNESIUM 2022-11-05 03:34:00 Agustin Erick, [facility] CBC W/PLT COUNT & AUTO 2022-11-05 03:34:00 [facility] CBC W/PLT COUNT & AUTO 2022-11-05 03:34:00 Saeid [facility] POCT-GLUCOSE METER 2022-11-04 23:14:00 Elvia [facility] SODIUM 2022-11-04 18:28:00 KanakiHumphrey birminghamal Manuel [facility] POCT-GLUCOSE METER 2022-11-04 16:53:00 Elvia [facility] POCT-GLUCOSE METER 2022-11-04 12:30:00 Elvia [facility] SODIUM 2022-11-04 12:17:00 KanakiHumphrey [place] Manuel [facility] POCT-GLUCOSE METER 2022-11-04 05:41:00 Elvia [facility] BASIC METABOLIC PANEL 2022-11-04 04:12:00 Agustin [facility], [facility] [place] PHOSPH[facility]US 2022-11-04 04:12:00 Agustin Erick, [facility] [place] MAGNESIUM 2022-11-04 04:12:00 [facility] CBC W/PLT COUNT & AUTO 2022-11-04 04:12:00 Agustin Erick, [facility] Keanu [place] CBC W/PLT COUNT & AUTO 2022-11-04 04:12:00 Conrado Saeid Manuel [facility] POCT-GLUCOSE METER 2022-11-04 00:14:00 Tai [facility] SODIUM 2022-11-03 18:20:00 Kanakioscar Saeid Jackson [facility] POCT-GLUCOSE METER 2022-11-03 16:39:00 Elvia [facility] SODIUM 2022-11-03 12:06:00 ShonnigelSaeid b[place] [facility] POCT-GLUCOSE METER 2022-11-03 11:53:00 Elvia [facility] XR ABDOMEN/KUB 1 VIEW 2022-11-03 11:27:11 Elvia [facility] POCT-GLUCOSE METER 2022-11-03 05:39:00 Elvia [facility] BASIC METABOLIC PANEL 2022-11-03 05:04:00 Agustin Erick [facility] Keanu [place] PHOSPHORUS 2022-11-03 05:04:00 Agustin Erick [facility] Ignacio [place] MAGNESIUM 2022-11-03 05:04:00 [facility] [place] CBC W/PLT COUNT & AUTO 2022-11-03 05:04:00 [facility] CBC W/PLT COUNT & AUTO 2022-11-03 05:04:00 ShonSaeid [facility]ers [facility] POCT-GLUCOSE METER 2022-11-02 23:23:00 Elvia [facility] SODIUM 2022-11-02 18:10:00 KanSaeid [facility] POCT-GLUCOSE METER 2022-11-02 17:45:00 Elvia [facility] POCT-GLUCOSE METER 2022-11-02 12:55:00 Tai, Juju [facility] SODIUM 2022-11-02 12:29:00 Saeid [place] Manuel [facility] CT BRAIN WITHOUT IV 2022-11-02 11:03:00 Juju Tai [facility] Center POCT-GLUCOSE METER 2022-11-02 06:10:00 [facility]UM 2022-11-02 05:19:00 Saeid Camp [facility] BASIC METABOLIC PANEL 2022-11-02 05:19:00 Agustin Erick, [facility] Keanu Center PHOSPHORUS 2022-11-02 05:19:00 Agustin Erick, [facility] Ignacio [place] MAGNESIUM 2022-11-02 05:19:00 [facility] CBC W/PLT COUNT & AUTO 2022-11-02 05:19:00 [facility]in [facility] CBC W/PLT COUNT & AUTO 2022-11-02 05:19:00 Saeid Camp [facility] Center POCT-GLUCOSE METER 2022-11-02 00:07:00 [facility] SODIUM 2022-11-01 18:31:00 Conrado [facility] POCT-GLUCOSE METER 2022-11-01 18:27:00 Alyssa [facility] 2D ECHO W/ DOPPLER 2022-11-01 15:27:00 Conrado Saeid [facility] (CW/PW/COLOR) Center SODIUM 2022-11-01 13:53:00 Conrado Saeid [facility] VANCOMYCIN LEVEL, TROUGH 2022-11-01 08:58:00 Yaima Mccracken [facility] MAGNESIUM 2022-11-01 08:58:00 [facility] POT[facility]UM 2022-11-01 08:58:00 [facility] BASIC METABOLIC PANEL 2022-11-01 03:10:00 Agustin Erick [facility] [place] PHOSPHORUS 2022-11-01 03:10:00 [facility]ustin [facility] [place] MAGNESIUM 2022-11-01 03:10:00 [facility] CBC W/PLT COUNT & AUTO 2022-11-01 03:10:00 [facility] CBC W/PLT COUNT & AUTO 2022-11-01 03:10:00 [facility] SODIUM 2022-10-31 23:53:00 Gladys [facility] SODIUM 2022-10-31 17:42:00 [facility] BLOOD CULTURE 2022-10-31 15:54:00 Alyssa [facility] SARS-COV2/INFLUENZA/RSV 2022-10-31 11:52:00 [facility] RT-PCR Center SODIUM 2022-10-31 11:52:00 Conrado [facility] MAGNESIUM 2022-10-31 11:52:00 [facility]an [facility] POCT-GLUCOSE METER 2022-10-31 11:49:00 Kathy Zepeda [facility] B-TYPE NATRIURETIC 2022-10-31 09:42:00 Conrado [facility] (BNP) Center MRSA SCREEN 2022-10-31 08:30:00 Clyde Florentino [facility] BASIC METABOLIC PANEL 2022-10-31 04:01:00 [facility] [place] PHOSPHORUS 2022-10-31 04:01:00 Agustin ErickR[facility] Center[facility] [place] MAGNESIUM 2022-10-31 04:01:00 Agustin Erick, [facility] CBC W/PLT COUNT & AUTO 2022-10-31 04:01:00 [facility] CBC W/PLT COUNT & AUTO 2022-10-31 04:01:00 Saeid Camp[facility] VENOUS DOPPLER LEGS 2022-10-31 03:37:28 Sreekanth Guevara [facility] VENOUS DOPPLER ARMS 2022-10-31 03:31:47 Serekanth Guevara I [facility] HIGH SENSITIVITY 2022-10-30 22:19:00 Agustin Alegre, [facility] TROPONIN I [facility] SODIUM 2022-10-30 22:19:00 Kanakia, Saeid Manuel [facility] ECG 12-LEAD 2022-10-30 17:27:26 Unknown, Hl7 [facility] ECG 12-LEAD 2022-10-30 17:26:59 Sreekanth Guevara [facility] ECG 12-LEAD 2022-10-30 17:26:59 Unknown, Hl7 [facility] XR ABDOMEN/KUB 1 VIEW 2022-10-30 17:09:00 Kanakia, [facility] LACTIC ACID, ARTERIAL 2022-10-30 16:48:00 Donnie Gonzalez [facility] HIGH SENSITIVITY 2022-10-30 16:48:00 [facility]OPONIN I [facility] SODIUM 2022-10-30 16:48:00 Kanakia, [facility] BLOOD GAS, ARTERIAL 2022-10-30 14:41:00 [facility] BLOOD GAS, ARTERIAL 2022-10-30 12:13:00 Nehemias Russo [facility] SODIUM 2022-10-30 12:12:00 Kanakia, [facility] LACTIC ACID, ARTERIAL 2022-10-30 12:12:00 Donnie Gonzalez [facility] XR CHEST 1 VIEW PORTABLE 2022-10-30 10:28:00 [facility] Kelly Suarez [facility] / BEDSIDE [facility] PROCALCITONIN 2022-10-30 10:14:00 Donnie Gonzalez [facility] HIGH SENSITIVITY 2022-10-30 10:14:00 Sreekanth Guevara [facility] TROPONIN I Center ECG 12-LEAD 2022-10-30 10:02:46 Unknown, Hl7 [facility] ECG 12-LEAD 2022-10-30 10:02:15 [facility] ECG 12-LEAD 2022-10-30 10:02:15 Unknown, Hl7 [facility] BRAIN WITHOUT IV 2022-10-30 06:24:45 [facility] BASIC METABOLIC PANEL 2022-10-30 03:19:00 [facility] PHOSPHORUS 2022-10-30 03:19:00 [facility] MAGNESIUM 2022-10-30 03:19:00 [facility] CBC W/PLT COUNT & AUTO 2022-10-30 03:19:00 [facility] CBC W/PLT COUNT & AUTO 2022-10-30 03:19:[address] [facility] DIFFERENTIAL Center SODIUM 2022-10-29 23:11:00 Saeid Camp [facility] XR ABDOMEN/KUB 1 VIEW 2022-10-29 18:16:00 Sreekanth Guevara [facility] PORTABLE Center SODIUM 2022-10-29 18:14:00 Saeid Camp [facility] CREATININE, RANDOM URINE 2022-10-29 14:52:00 Pamela Angela [facility] SODIUM 2022-10-29 12:19:00 Saeid Camp [facility] SODIUM, RANDOM URINE 2022-10-29 12:19:00 Saeid Camp [facility] UREA NITROGEN, RANDOM 2022-10-29 12:19:00 ShonnigeloscraSaeid [facility] URINE Center OSMOLALITY, URINE 2022-10-29 12:19:00 ShonSaeid sanders [facility] OSMOLALITY, SERUM 2022-10-29 12:19:00 Saeid Camp [facility] DRUG SCREEN, URINE, 2022-10-29 12:19:00 Agustin Suarez [facility] COMPREHENSIVE [facility] HCG, QUANTITATIVE, 2022-10-29 12:19:00 Agustin Suarez [facility] CTA CAROTID 2022-10-29 10:40:[address] [facility] BRAIN WITHOUT IV 2022-10-29 10:30:00 Jason [facility] CONTRAST Center CTA BRAIN 2022-10-29 10:20:00 [facility] RAPID DRUG SCREEN, URINE 2022-10-29 08:37:00 Saeid Camp [facility] SCREEN, URINE 2022-10-29 08:37:00 [place] [facility] BLOOD GAS, ARTERIAL 2022-10-29 07:53:00 Carlos [facility] XR CHEST 1 VIEW PORTABLE 2022-10-29 04:06:00 Alexia [facility] / BEDSIDE Center US GUIDE, VASCULAR 2022-10-29 03:47:[address] [facility] ACCESS Center MN INSERT 2022-10-29 03:46:45 Alexia [facility] CATH,ART,PERCUT,SHORTTER Center M BLOOD GAS, ARTERIAL 2022-10-29 03:46:00 [facility] CBC W/PLT COUNT & AUTO 2022-10-29 03:45:00 [facility]PREHENSIVE METABOLIC 2022-10-29 03:45:00 [facility] MAGNESIUM 2022-10-29 03:45:00 [facility] 2022-10-29 03:45:00 [facility] CALCIUM, IONIZED 2022-10-29 03:45:00 [facility] TSH/FREE T4 IF INDICATED 2022-10-29 03:45:00 [facility] HEMOGLOBIN A1C 2022-10-29 03:45:00 [facility] PROTHROMBIN TIME/INR 2022-10-29 03:45:00 [facility] APTT 2022-10-29 03:45:00 [facility] T4, FREE 2022-10-29 03:45:00 [facility] CBC W/PLT COUNT & AUTO 2022-10-29 03:45:00 [facility] ECG 12-LEAD 2022-10-29 03:28:02 Unknown, Hl7 [facility] ECG 12-LEAD 2022-10-29 03:27:17 PitVA [facility] ECG 12-LEAD 2022-10-29 03:27:17 Unknown, Hl7 [facility] EKG-SCANNED 2022-10-29 00:00:00 Provider, [facility] BASIC METABOLIC PANEL 2022-08-11 04:41:00 Clifton De Luna [facility] K[facility] Center MAGNESIUM 2022-08-11 04:41:00 Kristin Shah [facility] Rachael [place] CALCIUM, IONIZED 2022-08-11 04:41:00 Federico Hua [facility] PHOSPHORUS 2022-08-11 04:41:00 [facility] CBC W/PLT COUNT & AUTO 2022-08-11 04:41:00 [facility] CBC W/PLT COUNT & AUTO 2022-08-11 04:41:00 [facility] BASIC METABOLIC PANEL 2022-08-10 16:09:00 [facility] SODIUM, RANDOM URINE 2022-08-10 09:33:00 [facility] UREA NITROGEN, RANDOM 2022-08-10 09:33:00 [facility] CREATININE, RANDOM URINE 2022-08-10 09:33:00 [facility] OSMOLALITY, URINE 2022-08-10 09:33:00 [facility] TSH/FREE T4 IF INDICATED 2022-08-10 09:33:00 [facility] CORTISOL 2022-08-10 09:33:[address] [facility] OSMOLALITY, SERUM 2022-08-10 09:33:00 [facility] T4, FREE 2022-08-10 09:33:[address] [facility] CBC (HEMOGRAM ONLY) 2022-08-10 05:06:00 [facility] BASIC METABOLIC PANEL 2022-08-10 05:06:00 [facility] 2022-08-10 05:06:[address] [facility] CBC (HEMOGRAM ONLY) 2022-08-09 03:38:00 [facility] BASIC METABOLIC PANEL 2022-08-09 03:38:00 [facility] MAGNESIUM 2022-08-09 03:38:00 Kristin Shah [facility] CBC (HEMOGRAM ONLY) 2022-08-08 04:25:00 [facility] BASIC METABOLIC PANEL 2022-08-08 04:25:00 [facility] B-TYPE NATRIURETIC 2022-08-08 04:25:00 [facility] Medical FACTOR (BNP) [facility] STD PANEL - CT/GC RNA 2022-08-07 16:52:00 [facility] FUNGUS CULTURE + SMEAR 2022-08-07 10:22:00 Aida Alcala [facility] ANAEROBIC CULTURE 2022-08-07 10:22:00 [facility] WOUND CULTURE + GRAM 2022-08-07 10:22:00 [facility] RADIOLOGIC GUIDANCE & 2022-08-07 10:20:00 [facility] BASIC METABOLIC PANEL 2022-08-07 03:42:00 [facility] CBC (HEMOGRAM ONLY) 2022-08-07 03:41:00 [facility] CT ABDOMEN/PELVIS WITH 2022-08-06 00:22:00 Aida Alcala CH [facility] IV CONTRAST [facility] SCREEN, URINE 2022-08-05 21:06:00 OnRonal [facility] CBC W/PLT COUNT & AUTO 2022-08-05 20:40:00 Aida Alcala I [facility] DIFFERENTIAL [facility] BASIC METABOLIC PANEL 2022-08-05 20:40:00 [facility] PROTHROMBIN TIME/INR 2022-08-05 20:40:00 Fredrick [facility] TYPE AND SCREEN, 2022-08-05 20:40:00 Aida Alcala [facility] AUTOMATED [facility] CBC W/PLT COUNT & AUTO 2022-08-05 20:40:00 Aida Alcala I [facility] DIFFERENTIAL [facility] (CELLAVISION MANUAL 2022-08-05 20:40:00 Aida Alcala [facility] Medical DIFF) [facility] TRANSTHORACIC ECHO FOR 2022-08-03 13:59:39 Unknown, Hl7 Doctor Mendoza [facility] RESULTS Center BASIC METABOLIC PANEL 2022-08-03 04:31:00 [facility] CBC (HEMOGRAM ONLY) 2022-08-03 04:31:00 [facility] CBC W/PLT COUNT & AUTO 2022-08-02 13:09:00 [facility] BASIC METABOLIC PANEL 2022-08-02 13:09:00 [facility] CBC W/PLT COUNT & AUTO 2022-08-02 13:09:00 [facility] (CELLAVISION MANUAL 2022-08-02 13:09:00 [facility] DIFF) [place] MYOCARDIAL PERFUSION 2022-08-01 13:31:00 Judy Barros [facility] SPECT, PHARM [facility] TREADMILL 2022-08-01 11:39:56 Unknown, Hl7 [facility] TOLERANCE(NON-NUCLEAR Center TREADMILL) ECG 12-LEAD 2022-08-01 10:14:26 Unknown, Hl7 [facility] ECG 12-LEAD 2022-08-01 10:14:26 Unknown, Hl7 [facility] ECG 12-LEAD 2022-08-01 10:13:38 Unknown, 7 [facility] ECG 12-LEAD 2022-08-01 10:13:38 Unknown, 7 [facility] CBC W/PLT COUNT & AUTO 2022-08-01 04:47:00 Harris[facility] BASIC METABOLIC PANEL 2022-08-01 04:47:00 Leonid Harris [facility] MAGNESIUM 2022-08-01 04:47:00 Leonid Harris [facility] PHOSPHORUS 2022-08-01 04:47:00 Leonid Harris [facility] HEMOGLOBIN A1C 2022-08-01 04:47:00 [facility] PT/APTT 2022-08-01 04:47:00 [facility] HCG, QUANTITATIVE, 2022-08-01 04:47:00 [facility] TYPE AND SCREEN, 2022-08-01 04:47:00 Leonid Harris [facility] AUTOMATED Center CBC W/PLT COUNT & AUTO 2022-08-01 04:47:00 Leonid Harris [facility] (CELLAVISION MANUAL 2022-08-01 04:47:00 [facility] [place] 2D ECHO W/ DOPPLER 2022-07-31 15:20:04 [facility] (CW/PW/COLOR) [facility] ECG 12-LEAD 2022-07-31 15:01:36 [facility] ECG 12-LEAD 2022-07-31 15:01:36 Unknown, Hl7 [facility] US ENDOVAGINAL EV 2022-07-31 12:52:00 [facility] US PELVIS 2022-07-31 12:52:00 [facility] US DOPPLER 2022-07-31 12:52:00 [facility] BASIC METABOLIC PANEL 2022-07-31 03:09:00 Dewayne Reilly Pis [facility] MAGNESIUM 2022-07-31 03:09:00 Dewayne Reilly [facility] PHOSPHORUS 2022-07-31 03:09:00 PieroclydeDewayne [facility] An Center CBC W/PLT COUNT & AUTO 2022-07-31 03:09:00 PieroclydeDewayne Pis [facility] DIFFERENTIAL An Center LIPID PANEL 2022-07-31 03:09:00 Judy Barros [facility] CBC W/PLT COUNT & AUTO 2022-07-31 03:09:00 Pieroclyde Dewayne Pis [facility] DIFFERENTIAL An Center XR CHEST 1 VIEW PORTABLE 2022-07-30 16:42:00 TommieYulissaille P is [facility] / BEDSIDE An Center CBC W/PLT COUNT & AUTO 2022-07-30 15:38:00 Tommie Dewayne Pis [facility] DIFFERENTIAL An Center BASIC METABOLIC PANEL 2022-07-30 15:38:00 [facility] Yuliss[facility] Tracy [facility] An [place] PROTHROMBIN TIME/INR 2022-07-30 15:38:00 Dewayne Reilly Pis C [facility] Medical An Center MAGNESIUM 2022-07-30 15:38:00 [facility] Yulissaille Pis [facility] Medical An Center CBC W/PLT COUNT & AUTO 2022-07-30 15:38:00 Dayron Foster [facility] Medical DIFFERENTIAL [facility] Plan of Care Planned Activity Planned Date Details Comments Source Future Scheduled 2025-07-31 Lipid panel (procedure) [facility] 00:00:00 [code = 96943608] Medical Ce nter Future Scheduled 2025-07-31 Lipid panel (procedure) [facility] 00:00:00 [code = 88248543] Medical Ce nter Future Scheduled 2025-07-31 Lipid panel (procedure) [facility] 00:00:00 [code = 90349910] Medical Ce nter Future Scheduled 2025-07-31 Lipid panel (procedure) [facility] 00:00:00 [code = 97228128] Medical Ce nter Future Scheduled 2025-07-31 Lipid panel (procedure) [facility] 00:00:00 [code = 55875663] Medical Ce nter Future Scheduled 2025-07-31 Lipid panel (procedure) [facility] 00:00:00 [code = 79965268] Medical Ce nter Future Scheduled 2025-07-31 Lipid panel (procedure) [facility] 00:00:00 [code = 62046148] Medical Ce nter Future Scheduled 2025-07-31 Lipid panel (procedure) [facility] 00:00:00 [code = 00415215] Medical Ce nter Future Scheduled 2022-11-16 Influenza [...] [facility] Test 00:00:00 [code = INFLUENZA VACCINE Nm dical Center (#1)] Future Scheduled 2021 Lipid panel (procedure) [facility] 00:00:00 [code = 17164413] Medical Ce nter Future Scheduled 2021-03-18 DEPRESSION [...] cervix Medical C enter (procedure) [code = 811804997] Future Scheduled 1997 Screening for malignant [facility] 00:00:00 neoplasm of cervix Medical C enter (procedure) [code = 950575713] Future Scheduled 1997 Screening for malignant [facility] 00:00:00 neoplasm of cervix Medical C enter (procedure) [code = 591017672] Future Scheduled 1997 Screening for malignant [facility] 00:00:00 neoplasm of cervix Medical C enter (procedure) [code = 877736871] Future Scheduled 1997 Screening for malignant [facility] 00:00:00 neoplasm of cervix Medical C enter (procedure) [code = 994103037] Future Scheduled 1997 Screening for malignant [facility] 00:00:00 neoplasm of cervix Medical C enter (procedure) [code = 211084026] Future Scheduled 1997 Screening for malignant [facility] 00:00:00 neoplasm of cervix Medical C enter (procedure) [code = 584346167] Future Scheduled 1997 Screening for malignant [facility] 00:00:00 neoplasm of cervix Medical C enter (procedure) [code = 076114831] Future Scheduled 1997 Screening for malignant [facility] 00:00:00 neoplasm of cervix Medical C enter (procedure) [code = 844221597] Future Scheduled 1995 DTAP/TDAP/TD VACCINES (1 [facility] [...] screening Medical Cent er (procedure) [code = 477368474] Future Scheduled [address] Human immunodeficiency [facility]00 virus screening Medical Cent er (procedure) [code = 655051561] Future Scheduled [address] Human immunodeficiency [facility] 00:[facility]:00 virus screening Medical Cent er (procedure) [code = 107958653] Future Scheduled [address] Human immunodeficiency [facility] 00:00:00 virus screening Medical Cent er (procedure) [code = 609783521] Future Scheduled [address] Human immunodeficiency [facility] 00:00:00 virus screening Medical Cent er (procedure) [code = 224580783] Future Scheduled [address] Human immunodeficiency [facility] 00:00:00 virus screening Medical Cent er (procedure) [code = 763537390] Future Scheduled [address] [facility] 00:00:00 virus screening Medical Cent er (procedure) [code = 818607624] Future Scheduled [address] [facility] 00:00:00 virus screening Medical Cent er (procedure) [code = 917327212] Future Scheduled [address] [...] [facility] Test 00:00:00 Counseling and Screening [facility] (12+) [code = Tobacco Cessation Counseling and [...] 00:00:00 YRS (1 - PCV) [[facility] PNEUMOCOCCAL VACCINE 0-64 YRS (1 - PCV)] [...] [facility] CT Colonography (combo) [facility] 00:00:00 [code = CT Colonography Medi [facility] (combo)] Future Scheduled 1976 Screening for malignant [facility] 00:00:00 neoplasm of colon Medical Ce nter (procedure) [code = 443094504] Future Scheduled 1976 Screening for malignant [facility] 00:00:00 neoplasm of colon Medical Ce nter (procedure) [code = 187765720] Future Scheduled 1976 Screening for malignant [facility] 00:00:00 neoplasm of colon Medical Ce nter (procedure) [code = 141369956] Future Scheduled 1976 Screening for malignant [facility] 00:00:00 neoplasm of colon Medical Ce nter (procedure) [code = 083609370] Future Scheduled 1976 Sigmoidoscopy [code = [facility]oscopy] Medical Cente r Future Scheduled 1976 CT Colonography (combo) [facility] 00:00:00 [code = CT Colonography [facility] (combo)] Future Scheduled 1976 Screening for malignant [facility] 00:00:00 neoplasm of colon Medical Ce nter (procedure) [code = 014056296] Future Scheduled 1976 Screening for malignant [facility] 00:00:00 neoplasm of colon Medical Ce nter (procedure) [code = 796353961] Future Scheduled 1976 Screening for malignant [facility] 00:00:00 neoplasm of colon Medical Ce nter (procedure) [code = 386770125] Future Scheduled 1976 Screening for malignant [facility] 00:00:00 neoplasm of colon Medical Ce nter (procedure) [code = 231782605] Future Scheduled 1976 Sigmoidoscopy [code = [facility] S[facility]oidoscopy] Medical Cente r Future Scheduled 1976 CT Colonography (combo) [facility] 00:00:00 [code = CT Colonography [facility] (combo)] Future Scheduled 1976 Screening for malignant [facility] 00:00:00 neoplasm of colon Medical Ce nter (procedure) [code = 972520232] Future Scheduled 1976 Screening for malignant [facility] 00:00:00 neoplasm of colon Medical Ce nter (procedure) [code = 413855454] Future Scheduled 1976 Screening for malignant [facility] 00:00:00 neoplasm of colon Medical Ce nter (procedure) [code = 583646313] Future Scheduled 1976 Screening for malignant [facility] 00:00:00 neoplasm of colon Medical Ce nter (procedure) [code = 422734172] Future Scheduled 1976 Sigmoidoscopy [code = [facility] S[facility]oidoscopy] Medical Cente r Future Scheduled 1976 CT Colonography (combo) [facility] 00:00:00 [code = CT Colonography [facility] (combo)] Future Scheduled 1976 Screening for malignant [facility] 00:00:00 neoplasm of colon Medical Ce nter (procedure) [code = 688324172] Future Scheduled 1976 Screening for malignant [facility] 00:00:00 neoplasm of colon Medical Ce nter (procedure) [code = 337057149] Future Scheduled 1976 Screening for malignant [facility] 00:00:00 neoplasm of colon Medical Ce nter (procedure) [code = 422863958] Future Scheduled 1976 Screening for malignant [facility] 00:00:00 neoplasm of colon Medical Ce nter (procedure) [code = 894666621] Future Scheduled 1976 Sigmoidoscopy [code = [facility] S[facility]oidoscopy] Medical Cente r Future Scheduled 1976 CT Colonography (combo) [facility] 00:00:00 [code = CT Colonography [facility] (combo)] Future Scheduled 1976 Screening for malignant [facility] 00:00:00 neoplasm of colon Medical Ce nter (procedure) [code = 123224297] Future Scheduled 1976 Screening for malignant [facility] 00:00:00 neoplasm of colon Medical Ce nter (procedure) [code = 404379627] Future Scheduled 1976 Screening for malignant [facility] 00:00:00 neoplasm of colon Medical Ce nter (procedure) [code = 741515075] Future Scheduled 1976 Screening for malignant [facility] 00:00:00 neoplasm of colon Medical Ce nter (procedure) [code = 256685956] Future Scheduled 1976 Sigmoidoscopy [code = [facility] S[facility]oidoscopy] Medical Cente r Future Scheduled 1976 CT Colonography (combo) [facility] 00:00:00 [code = CT Colonography [facility] (combo)] Future Scheduled 1976 Screening for malignant [facility] 00:00:00 neoplasm of colon Medical Ce nter (procedure) [code = 509986746] Future Scheduled 1976 Screening for malignant [facility] 00:00:00 neoplasm of colon Medical Ce nter (procedure) [code = 091071497] Future Scheduled 1976 Screening for malignant [facility] 00:00:00 neoplasm of colon Medical Ce nter (procedure) [code = 021472016] Future Scheduled 1976 Screening for malignant [facility] 00:00:00 neoplasm of colon Medical Ce nter (procedure) [code = 718751534] Future Scheduled 1976 Sigmoidoscopy [code = [facility] Sigmoidoscopy] Medical Petrae r Future Scheduled 1976 CT Colonography (combo) [facility] 00:00:00 [code = CT Colonography [facility] (combo)] Future Scheduled 1976 Screening for malignant [facility] 00:00:00 neoplasm of colon Medical Ce nter (procedure) [code = 084592908] Future Scheduled 1976 Screening for malignant [facility] 00:00:00 neoplasm of colon Medical Ce nter (procedure) [code = 055501072] Future Scheduled 1976 Screening for malignant [facility] 00:00:00 neoplasm of colon Medical Ce nter (procedure) [code = 422445048] Future Scheduled 1976 Screening for malignant [facility] 00:00:00 neoplasm of colon Medical Ce nter (procedure) [code = 785989636] Future Scheduled 1976 Sigmoidoscopy [code = [facility] S[facility]oidoscopy] Medical Petrae r Future Scheduled 1976 CT Colonography (combo) [facility] 00:00:00 [code = CT Colonography [facility] (combo)] Future Scheduled 1976 Screening for malignant [facility] 00:00:00 neoplasm of colon Medical Ce nter (procedure) [code = 424628553] Future Scheduled 1976 Screening for malignant [facility] 00:00:00 neoplasm of colon Medical Ce nter (procedure) [code = 085757324] Future Scheduled 1976 Screening for malignant [facility] 00:00:00 neoplasm of colon Medical Ce nter (procedure) [code = 420074247] Future Scheduled 1976 Screening for malignant [facility] 00:00:00 neoplasm of colon Medical Ce nter (procedure) [code = 985253553] Future Scheduled 1976 Sigmoidoscopy [code = [facility] 00:[facility] Sigmoidoscopy] Medical Cente r Future Scheduled 1976 CT Colonography (combo) [facility] 00:00:00 [code = CT Colonography [facility] (combo)] Future Scheduled 1976 Screening for malignant [facility] 00:00:00 neoplasm of colon Medical Ce nter (procedure) [code = 823767369] Future Scheduled 1976 Screening for malignant [facility] 00:00:00 neoplasm of colon Medical Ce nter (procedure) [code = 242389948] Future Scheduled 1976 Screening for malignant [facility] 00:00:00 neoplasm of colon Medical Ce nter (procedure) [code = 866913951] Future Scheduled 1976 Screening for malignant [facility] 00:00:00 neoplasm of colon Medical Ce nter (procedure) [code = 022743220] Encounters Start End Encounter Admission Attending Care Care Encounter Source Date/Time Date/Time Type Type Clinicians Facility Department ID 2022-11-07 Inpatient ER MIR PASCUAL [facility] SLE [id number] SLEH 19:39:43 2022-11-06 Inpatient ER JUJU TAI [facility] [id number] SLEH 11:21:11 2022-11-06 Inpatient ER JUJU TAI [facility] [id number] SLEH 10:39:32 2022-11-05 Inpatient ER JUJU TAI [facility] SLE [id number] SLEH 13:31:19 2022-11-03 Inpatient ER JUJU TAI [facility] [id number] SLEH 10:45:25 2022-11-01 Inpatient ER SLEH SLEH [id number] SLEH 09:28:17 2022-11-01 Inpatient ER SLEH SLEH [id number] SLEH 09:11:47 2022-10-31 Inpatient ER BERSHAD, SLEH SLEH [id number] SLEH 00:51:03 KATHY 2022-10-31 Inpatient ER BERSHAD, SLEH SLEH [id number] SLEH 00:50:54 KATHY 2022-10-30 Inpatient ER SLEH SLEH [id number] SLEH 15:54:13 2022-10-30 Inpatient ER BERSHAD, SLEH SLEH [id number] SLEH 09:14:25 KATHY 2022-10-30 Inpatient ER BERSHAD, SLEH SLEH [id number] SLEH 05:26:11 KATYH 2022-10-29 Inpatient ER BERSHAD, SLEH SLE [id number] SLEH 17:09:25 KATHY 2022-10-29 Inpatient ER PITTARD, SLEH SLEH [id number] SLEH 03:50:03 MURRAY 2023-01-31 2023-01-31 Outpatient SFA SFA [id number] Martin 15:10:33 15:10:33 1116 F Tello 2023-01-29 2023-01-29 Robby Wang [facility] 1.2.840.114 [id number] Univers 00:00:00 00:00:00 (Out) Cardiology HEALTH 350.1.13.10 ity of - Clear CLEAR 4.2.7.2.686 David WANG [id number] [facility] [address] OFFICE BUILDING 2023-01-24 2023-01-24 Orders Doctor YAIMA 1.2.840.114 [id number] Univers 00:00:00 00:00:00 Only Unassigned, VLAD 350.1.13.10 ity of [place] [facility] 4.2.7.2.686 Anthony as [id number] [facility] [address] 2023-01-22 2023-01-22 Outpatient SFA SFA [id number] Martni 08:26:51 08:26:51 1107 F Tello 2022-12-27 2022-12-27 Outpatient SFA [facility] [id number] Martin 10:33:43 10:33:43 1012 F Tello 2022-11-29 2022-11-29 Transition MONSE Sotelo 1.2.840.114 [id number] Univers 00:00:00 00:00:00 of Care Desi REDDY 350.1.13.10 ity of [place] [id number] [facility] [address] 2022-11-24 2022-11-28 [facility] Sharad 1.2.840.114 [id number] [facility] 11:15:00 21:45:00 Encounter Ryne Yoder 350.1.13.1 0 ity of [facility] 4.2.7.2.686 [place] [id number] [facility] [address] 2022-11-24 2022-11-28 Inpatient U [facility] [id number] Univers 11:15:00 21:45:00 [facility] 2022-11-24 2022-11-28 Inpatient U [facility] [id number] Univers 11:15:00 21:45:00 [facility] 2022-10-29 2022-11-13 [facility] ER Whiteside Santiagoyosef Her [facility] [id number] [facility] St 02:56:00 21:30:00 Encounter Kathy Zepeda Najamus M edical Khan, Maria Cent er Damani, Rahul Hareshkumar Ali, Hiba Tahir Merchant, [place] 2022-10-29 2022-11-13 Inpatient ER MERCHANT [facility] Neurology [id number] SLE 02:56:00 21:30:00 LILY DALE 2022-11-06 2022-11-06 Inpatient ER [facility] [id number] SLE 08:32:27 00:00:00 2022-11-06 2022-11-06 [facility] [id number] 00:00:00 00:00:00 Only [facility] 2022-11-05 2022-11-05 Outpatient SLEH SLE [id number] SLEH 00:00:00 00:00:00 2022-11-05 2022-11-05 Outpatient SLEH SLEH [id number] SLEH 00:00:00 00:00:00 2022-11-02 2022-11-02 Inpatient ER JUJU TAI SLE SLEH [id number] SLEH 10:58:08 00:00:00 2022-10-29 2022-10-29 [facility] [id number] SLE 10:12:32 23:59:00 MURRAY 2022-10-29 2022-10-29 [facility] [id number] [facility] 09:35:00 23:59:00 Encounter Sonido [facility] 2022-10-29 2022-10-29 [facility] [id number] SLE 10:12:49 00:00:00 MURRAY 2022-10-29 2022-10-29 [facility] [id number] SLE 10:12:41 00:00:00 [facility] 2022-10-29 2022-10-29 Orders [facility] [id number] 00:00:00 00:00:00 Only [facility] 2022-08-12 2022-08-12 Telephone Gregory [facility] [id number] 00:00:00 00:00:00 [facility] 2022-08-05 2022-08-11 Hospital ER Popeye Mcneal In [facility] [id number] 18:09:00 14:47:00 Encounter Aida Alcala [facility]1983Clif[facility] foster [facility] Kristin [facility] 2022-08-05 2022-08-11 Inpatient ER [facility], [facility] [id number] SLE 18:09:00 14:47:00 [facility] 2022-08-05 2022-08-05 Travel [facility] [id number] [facility] 00:00:00 00:00:00 [facility] 2022-07-31 2022-08-03 Hospital UR Les Al [facility] [id number] [facility] St 04:37:00 20:00:00 Encounter Nena Waller [facility], Leonid Orr [place] 2022-07-31 2022-08-03 Inpatient [facility] [id number] [facility] 04:37:00 20:00:00 [facility] 2022-07-30 2022-07-31 Inpatient ER [facility], [facility] Gynecology [id number] [facility] 14:07:00 04:04:00 DAYRON 2022-07-30 2022-07-31 [facility] ER [facility], [facility] [id number] [facility] [address] 14:07:00 04:04:00 Encounter Dayron [facility] 2022-07-31 2022-07-31 Orders [facility] [id number] [facility] [address] 00:00:00 00:00:00 Only [facility] 2022-07-30 2022-07-30 Travel [facility] [id number] [facility] St 00:00:00 00:00:00 [facility] Results Test Description Test Time Test Comments Results Result Comments Source HEPATIC FUNCTION PANEL (94761) (ALB,T.PRO,BILI 2022-11-26 13 :08:17 T,BU/BC,ALT,AST,ALK PHOS) Test Item Value Reference Range Interpretation Comme nts TOTAL BILI (test code = 0730035766) 0.9 mg/dL 0.1-1.1 BILI UNCON (test code = 7713652556) 0.6 mg/dL 0.1-1.1 BILI CONJ (test code = 1049271296) 0.0 mg/dL 0.0-0.3 T PROTEIN (test code = 7794558085) 6.5 g/dL 6.3-8.2 ALBUMIN (test code = 2684415138) 4.0 g/dL 3.5-5.0 ALK PHOS (test code = 1012088700) 527 U/L 34-122 H ALTv (test code = 1742-6) 116 U/L 5-35 H AST(SGOT) (test code = 5791761175) 76 U/L 13-40 H Lab Interpretation (test code = 44159-5) Abnormal [facility] METABOLIC PANEL (NA, K, CL, CO2, GLUCOSE, BUN, CREATININE, CA)2022-11-26 10:08:01 Test Item Value Reference Range Interpretation Comments NA (test code = 136 mmol/L 135-145 3773574575) K (test code = 4.1 mmol/L 3.5-5.0 2042706664) CL (test code = 100 mmol/L 98-108 4373489075) CO2 TOTAL (test code 28 mmol/L 23-31 = 5008157829) AGAP (test code = 8 2-16 4081166510) BUN (test code = 17 mg/dL 7-23 0870076146) GLUCOSE (test code = 87 mg/dL 70-110 6707171684) CREATININE (test code 1.00 mg/dL 0.50-1.04 = 5279924831) CALCIUM (test code = 9.3 mg/dL 8.6-10.6 1740446191) eGFR (test code = 59.7 mL/min/1.73m2 3012825586) SUE (test code = SUE) Association of [...] or urine or abnormalities in imaging tests). [facility] Test Item Value Reference Range Interpretation Comments MAGNESIUM (test code = 1497693887) 1.8 mg/dL 1.7-2.4 Lab Interpretation (test code = Normal 42213-9) [facility] WITH [id number] 09:36:22 Test Item Value Reference Range Interpretation [...] RDW-SD (test code = 42.7 fL 39.0-49.9 43233-4) RDW-CV (test code = 12.5 % 12.0-15.5 788-0) PLT (test code = 151 See_Comment L [Automated 777-3) message] The sy stem which generated this result transmitted reference range : 166 - 358 10*3/ ?L. The reference r elizabeth was not used to interpret this result as normal/abnormal . MPV (test code = 9.4 fL 9.5-12.9 L 50436-2) NRBC/100 WBC (test 0.0 See_Comment [Automat ed code = 3786851057) message] The system which generated this result transmitted reference range : 0.0 - 10.0 /100 WBCs. The refer ence range was not u sed to interpret th is result as normal/abnormal . NRBC x10^3 (test code See_Comment [Auto mated = 1094902691) message] The s ystem which generated this result transmitted reference range : 10*3/?L. The reference range was not used to interpret this result as normal/abnormal . GRAN MAT (NEUT) % 68.0 % (test code = 770-8) IMM GRAN % (test code 0.00 % = 6104048319) LYMPH % (test code = 17.7 % 736-9) MONO % (test code = 9.1 % 5905-5) EOS % (test code = 4.5 % 713-8) BASO % (test code = 0.7 % 706-2) GRAN MAT x10^3(ANC) 2.84 10*3/uL 1.88-7.09 (test code = 4006496256) IMM GRAN x10^3 (test 0.00-0.06 code = 5919483361) LYMPH x10^3 (test code 0.74 10*3/uL 1.32-3.29 L = 731-0) MONO x10^3 (test code 0.38 10*3/uL 0.33-0.92 = 742-7) EOS x10^3 (test code = 0.19 10*3/uL 0.03-0.39 711-2) BASO x10^3 (test code 0.03 10*3/uL 0.01-0.07 = 704-7) Lab Interpretation Abnormal (test code = 71427-1) [facility] METABOLIC PANEL (NA, K, CL, CO2, GLUCOSE, BUN, CREATININE, CA)2022-11-25 09:47:18 Test Item Value Reference Range Interpretation Comments NA (test code = 135 mmol/L 135-145 4984529169) K (test code = 5.0 mmol/L 3.5-5.0 Slight 0080928848) hemolysis CL (test code = 100 mmol/L 98-108 0606425121) CO2 TOTAL (test code 28 mmol/L 23-31 = 9915450734) AGAP (test code = 7 2-16 6046723834) BUN (test code = 20 mg/dL 7-23 Slight 0498589301) hemolysis GLUCOSE (test code = 109 mg/dL 70-110 8251139622) CREATININE (test code 1.20 mg/dL 0.50-1.04 H = 5354363430) CALCIUM (test code = 9.2 mg/dL 8.6-10.6 4130469462) eGFR (test code = 48.4 mL/min/1.73m2 3855820233) SUE (test code = SUE) Association of [...] tests). Lab Interpretation Abnormal (test code = 24794-3) [facility]42[facility]55 Test Item Value Reference Range Interpretation Comments MAGNESIUM (test code = 2080502817) 3.1 mg/dL 1.7-2.4 H Lab Interpretation (test code = Abnormal 70417-7) [facility] ANTIBODY [id number] 23:52:42 Test Item Value Reference Range Interpretation Comments HAVM 0.05 Semi-Quantitative (test code = 43200-0) SUE (test code = HAVAb IgM Interpretative SUE) Information: Reactive greater than or equal to 1.2 Biotin has been reported to cause a negative bias, interpret results relative to patient's use of biotin. [facility] [id number] 23:35:43 Test Item Value Reference Range Interpretation Comments TROPONIN I (test code = 0.911 ng/mL <=0.034 H 7810221560) SUE (test code = SUE) Reference (Normal) [...] biotin. Lab Interpretation Abnormal (test code = 64553-9) [facility]HIV [facility]2 AG-AB WITH [id number] 21:57:58 Test Item Value Reference Range Interpretation Comments HIV 0.12 Negative Semi-quantitative (test code = 36718-1) SUE (test code = Non-reactive for HIV-1 SUE) antigen and HIV-1/HIV-2 antibodies. ?No laboratory evidence of HIV infection. ?Repeat in 2-4 weeks if acute HIV infection is suspected. [facility]CV [id number] 21:57:58 Test Item Value Reference Range Interpretation Comments HCV Ab (test code = 93173-4) Negative HCV Semi-Quantitative (test code = 0.01 20599-6) [facility] [id number] 21:57:58 Test Item Value Reference Range Interpretation Comments HBsAB (test code = Negative 4184888133) HBsAb 0.00 mIU/mL Semi-Quantitative (test code = 4199485376) SUE (test code = Interpretation: SUE) ?Hepatitis B Surface Antibody ? Negative - Patient is considered to be not immune to infection with HBV. ? ? Positive - Anti-HBs detected at greater than or equal to 12 mIU/mL. ?Patient is considered to be immune to infection with HBV. ? [facility] B SURFACE [id number] 21:40:35 Test Item Value Reference Range Interpretation Comments HBsAg Semi-Quantitative (test code = 0.14 Negative 5195-3) [facility] HospitalGLYCOSYLATED HEMOGLOBIN (A1C)2022-11-24 18:18:35 Test Item Value Reference Range Interpretation Comments HGB A1C (test code = 4.6 % 4.0-5.7 4548-4) SUE (test code = SUE) Reference RangesNormal: <5.7%Prediabetes: 5.7 - 6.4%Diabetes: > 6.5% Lab Interpretation (test Normal code = 34812-5) [facility]THYROID STIMULATING [id number] 17:58:24 Test Item Value Reference Range Interpretation Comments TSH (test code = 2.03 See_Comment [Automated message] 2156933365) The system [employer] generated this result transmitted ref erence range: 0.45 - 4 .70 mIU/L. The refe rence range was not u sed to interpret this result as normal/abnor mal. Lab Interpretation (test Normal code = 00371-5) [facility]TR[facility] [id number] 17:39:48 Test Item Value Reference Range Interpretation Comments TROPONIN I (test code = 1.340 ng/mL <=0.034 H 7467897264) SUE (test code = SUE) Reference (Normal) [...] biotin. Lab Interpretation Abnormal (test code = 33729-9) [facility] HospitalN-TERMINAL [id number] 17:39:48 Test Item Value Reference Range Interpretation Comments NT-proBNP (test code = 2520 pg/mL <=125 H 06493-5) SUE (test code = SUE) Positive: Heart Failure Likely Lab Interpretation (test Abnormal code = 63171-9) [facility] (NA, K, CL, CO2, GLUCOSE, BUN, CREATININE, CA)2022-11-24 17:30:04 Test Item Value Reference Range Interpretation Comments NA (test code = 135 mmol/L 135-145 2072209915) K (test code = 3.9 mmol/L 3.5-5.0 2990615769) CL (test code = 97 mmol/L 98-108 L 1046851564) CO2 TOTAL (test code = 27 mmol/L 23-31 8996633166) AGAP (test code = 11 2-16 5324512261) BUN (test code = 23 mg/dL 7-23 2978673224) GLUCOSE (test code = 163 mg/dL 70-110 H 5487437723) CREATININE (test code = 1.40 mg/dL 0.50-1.04 H 0519219994) CALCIUM (test code = 9.4 mg/dL 8.6-10.6 0582318884) eGFR (test code = 40.5 mL/min/1.73m2 0467537469) SUE (test code = SUE) Association of [...] tests). Lab Interpretation Abnormal (test code = 28550-1) [facility]HEPAT[facility] PAN[facility] (34915) (ALB,T.PRO,BILI T,BU/BC,ALT,AST,ALK PHOS)2022-11-24 17:30:04 Test Item Value Reference Range Interpretation Comments TOTAL BILI (test code = 9543182253) 1.0 mg/dL 0.1-1.1 BILI UNCON (test code = 0412642148) 0.6 mg/dL 0.1-1.1 BILI CONJ (test code = 3324535048) 0.0 mg/dL 0.0-0.3 T PROTEIN (test code = 1264339779) 6.8 g/dL 6.3-8.2 ALBUMIN (test code = 1250173225) 4.1 g/dL 3.5-5.0 ALK PHOS (test code = 9555700550) 746 U/L 34-122 H ALTv (test code = 1742-6) 183 U/L 5-35 H AST(SGOT) (test code = 8605018094) 196 U/L 13-40 H Lab Interpretation (test code = Abnormal 89102-9) [facility] HospitalLIPID PANEL (35082)(TOTAL CHOLESTEROL, TRIGLYCERIDES, HDL)2022-11-24 17:30:04 Test Item Value Reference Range Interpretation Comments CHOL (test code = 2797587749) 113 mg/dL 120-200 L HDL (test code = 0002162430) 62 mg/dL >=50 HDLC RATIO (test code = 1304209401) 1.8 <=4.5 TRIG (test code = 2754789751) 71 mg/dL 30-170 LDL CHOL (test code = 87699-2) 37 mg/dL <=160 VLDL (test code = 0124909274) 14 mg/dL 5-60 Lab Interpretation (test code = Abnormal 39432-1) [facility]CB WITH [id number] 16:55:22 Test Item Value Reference Range Interpretation Comments WBC (test code = 6.05 See_Comment [Automated 0390-2) message] The sy stem which generated this result transmitted reference range : 4.30 - 11.10 10*3/?L. The reference range was not used to interpret this result as normal/abnormal . RBC (test code = 3.21 See_Comment L [Automated 479-8) message] The sy stem which generated this [...] RDW-SD (test code = 44.3 fL 39.0-49.9 60791-2) RDW-CV (test code = 12.9 % 12.0-15.5 788-0) PLT (test code = 203 See_Comment [Automated 007-3) message] The sy stem which generated this result transmitted reference range : 166 - 358 10*3/ ?L. The reference r elizabeth was not used to interpret this result as normal/abnormal . MPV (test code = 9.9 fL 9.5-12.9 50793-2) NRBC/100 WBC (test 0.0 See_Comment [Automat ed code = 9076342957) message] The system which generated this result transmitted reference range : 0.0 - 10.0 /100 WBCs. The refer ence range was not u sed to interpret th is result as normal/abnormal . NRBC x10^3 (test code See_Comment [Auto mated = 7069640563) message] The s ystem which generated this result transmitted reference range : 10*3/?L. The reference range was not used to interpret this result as normal/abnormal . GRAN MAT (NEUT) % 59.6 % (test code = 770-8) IMM GRAN % (test code 0.20 % = 8185998960) LYMPH % (test code = 28.3 % 736-9) MONO % (test code = 9.1 % 5905-5) EOS % (test code = 2.5 % 713-8) BASO % (test code = 0.3 % 706-2) GRAN MAT x10^3(ANC) 3.61 10*3/uL 1.88-7.09 (test code = 0541015211) IMM GRAN x10^3 (test 0.00-0.06 code = 8814093125) LYMPH x10^3 (test code 1.71 10*3/uL 1.32-3.29 = 731-0) MONO x10^3 (test code 0.55 10*3/uL 0.33-0.92 = 742-7) EOS x10^3 (test code = 0.15 10*3/uL 0.03-0.39 711-2) BASO x10^3 (test code 0.01-0.07 = 704-7) Lab Interpretation Abnormal (test code = 52742-4) [facility]-Glucose [id number] 12:43:54 Test Item Value Reference Range Interpretation Comments POC-Glucose Meter (test 138 mg/dL 70-110 H : TE STED AT [facility] code = 1538) [address] [place] [address], 770 30: Coil Assembler/Techni smiley ID = [id number] for IVÁN, FERMIN [place] Lab Interpretation (test Abnormal code = 38583-0) [facility]-Glucose [id number] 12:43:54 Test Item Value Reference Range Interpretation Comments POC-Glucose Meter (test 138 mg/dL 70-110 H : TE STED AT [facility] code = 1538) [address] [place] [address], 770 30: Coil Assembler/Techni smiley ID = [id number] for IVÁN, FERMIN [place] Lab Interpretation (test Abnormal code = 46700-1) [facility]-Glucose [id number] 12:43:54 Test Item Value Reference Range Interpretation Comments POC-Glucose Meter (test 138 mg/dL 70-110 H : TE STED AT [facility] code = 1538) [address] [place] [address], [facility] 30: Coil Assembler/Techni smiley ID = [id number] for IVÁN, FERMIN IA Lab Interpretation (test Abnormal code = 54718-5) [facility]-Glucose [id number] 12:43:54 Test Item Value Reference Range Interpretation Comments POC-Glucose Meter (test 138 mg/dL 70-110 H : TE STED AT [facility] code = 1538) [address] [place] [address], 770 30: Coil Assembler/Techni smiley ID = [id number] for IVÁN, FERMIN [place] Lab Interpretation (test Abnormal code = 38518-9) [facility]-Glucose [id number] 12:43:54 Test Item Value Reference Range Interpretation Comments POC-Glucose Meter (test 138 mg/dL 70-110 H : TE STED AT [facility] code = 1538) [address] [place] [address], 770 30: Coil Assembler/Techni smiley ID = [id number] for IVÁN, FERMIN [place] Lab Interpretation (test Abnormal code = 91079-0) [facility]-Glucose [id number] 12:43:54 Test Item Value Reference Range Interpretation Comments POC-Glucose Meter (test 138 mg/dL 70-110 H : TE STED AT [facility] code = 1538) [address] [place] [address], 770 30: Coil Assembler/Techni smiley ID = [id number] for IVÁN, FERMIN IA Lab Interpretation (test Abnormal code = 25269-0) [facility]-Glucose [id number] 12:43:54 Test Item Value Reference Range Interpretation Comments POC-Glucose Meter (test 138 mg/dL 70-110 H : TE STED AT [facility] code = 1538) [address] [facility] 770 30: Coil Assembler/Techni smiley ID = [id number] for FERMIN MINOR [place] Lab Interpretation (test Abnormal code = 95475-6) [facility]-GLUCOSE [id number] 12:43:54 Test Item Value Reference Range Interpretation Comments POC-GLUCOSE METER 138 mg/dL 70-110 H : TESTED A T [facility] 6720 (BEAKER) (test code = [facility] R [facility], 1538) [address]: Coil Assembler/Techni smiley ID = [id number] for MANDA ESPARZA [id number] 06:54:19 Test Item Value Reference Range Interpretation Comments PHOSPHORUS (BEAKER) (test code = 4.2 mg/dL 2.3-4.7 604) Coil Assembler ID - [id number] 06:54:18 Test Item Value Reference Range Interpretation Comments MAGNESIUM (BEAKER) (test code = 1.7 mg/dL 1.6-2.6 627) Coil Assembler ID - ADMINCBC W/PLT COUNT & AUTO [id number] 06:00:54 Test Item Value Reference Range Interpretation [...] PERCENT (BEAKER) (test code = 2801) POCT-GLUCOSE [id number] 21:38:27 Test Item Value Reference Range Interpretation Comments POC-GLUCOSE METER 88 mg/dL 70-110 : TESTED A T [facility] 6720 (BEAKER) (test code = [facility], 153) [address]: Coil Assembler/Techni smiley ID = [id number] for NADEGE MORALES POCT-GLUCOSE [id number] 18:19:26 Test Item Value Reference Range Interpretation Comments POC-GLUCOSE METER 93 mg/dL 70-110 : TESTED A T [facility] 6720 (BEAKER) (test code = [facility], 153) 15963: Coil Assembler/Techni smiley ID = [id number] for MANDA PANCHAL POCT-GLUCOSE [id number] 13:13:27 Test Item Value Reference Range Interpretation Comments POC-GLUCOSE METER 91 mg/dL 70-110 : TESTED A T [facility] 6720 (BEAKER) (test code = [facility], 1538) 87816: Coil Assembler/Techni smiley ID = [id number] for MANDA PANCHAL BLOOD [id number] 12:00:51 Test Item Value Reference Range Interpretation Comments CULTURE (BEAKER) (test No growth in 5 days code = 1095) BLOOD [id number] 12:00:51 Test Item Value Reference Range Interpretation Comments CULTURE (BEAKER) (test No growth in 5 days code = 1095) The specimen volume collected for this blood culture was below the optimum (10 mL per bottle or 20 mL total). Use of lower volumes may adversely affect recovery and/or detection times of some organisms.POCT-GLUCOSE [id number] 06:46:01 Test Item Value Reference Range Interpretation Comments POC-GLUCOSE METER 102 mg/dL 70-110 : TESTED A T [facility] 6720 (BEAKER) (test code = [facility], 1538) 68526: Coil Assembler/Techni smiley ID = [id number] for Teresa Rose [id number] 05:48:23 Test Item Value Reference Range Interpretation Comments MAGNESIUM (BEAKER) (test code = 1.8 mg/dL 1.6-2.6 627) Coil Assembler ID - [id number] 05:48:23 Test Item Value Reference Range Interpretation Comments PHOSPHORUS (BEAKER) (test code = 3.6 mg/dL 2.3-4.7 604) Coil Assembler ID - MARCOBASIC METABOLIC [id number] 05:48:22 Test Item Value Reference Range Interpretation [...] not appl icable for dialysis patien ts Coil Assembler ID - MARCOCBC W/PLT COUNT & AUTO [id number] 05:10:47 Test Item Value Reference Range Interpretation [...] PERCENT (BEAKER) (test code = 2801) POCT-GLUCOSE [id number] 23:44:35 Test Item Value Reference Range Interpretation Comments POC-GLUCOSE METER 93 mg/dL 70-110 : TESTED A T [facility] 6720 (BEAKER) (test code = [facility], 153) 13493: Coil Assembler/Techni smiley ID = [id number] for Teresa Camejo POCT-GLUCOSE [id number] 17:35:54 Test Item Value Reference Range Interpretation Comments POC-GLUCOSE METER 108 mg/dL 70-110 : TESTED A T [facility] 6720 (BEAKER) (test code = [facility], 153) 07426: Coil Assembler/Techni smiley ID = [id number] for An Donna lucas BLOOD [id number] 17:01:46 Test Item Value Reference Range Interpretation Comments CULTURE (BEAKER) (test No growth in 5 days code = 1095) The specimen volume collected for this blood culture was below the optimum (10 mL per bottle or 20 mL total). Use of lower volumes may adversely affect recovery and/or detection times of some organisms.POCT-GLUCOSE [id number] 13:41:35 Test Item Value Reference Range Interpretation Comments POC-GLUCOSE METER 99 mg/dL 70-110 : TESTED A T [facility] 6720 (BEAKER) (test code = [facility]IN[facility], 1538) 73915: Coil Assembler/Techni smiley ID = [id number] for Donna Baxter BLOOD [id number] 13:01:43 Test Item Value Reference Range Interpretation Comments CULTURE (BEAKER) (test No growth in 5 days code = 1095) POCT-GLUCOSE [id number] 07:21:17 Test Item Value Reference Range Interpretation Comments POC-GLUCOSE METER 110 mg/dL 70-110 : TESTED A T [facility] 6720 (BEAKER) (test code = AIVNASH [place], 1538) [address]: Coil Assembler/Techni smiley ID = [id number] for Teresa Rose BASIC METABOLIC [id number] 05:31:26 Test Item Value Reference Range Interpretation [...] not appl icable for dialysis patien ts Coil Assembler ID - [id number] 05:31:26 Test Item Value Reference Range Interpretation Comments MAGNESIUM (BEAKER) (test code = 2.0 mg/dL 1.6-2.6 627) Coil Assembler ID - [id number] 05:31:26 Test Item Value Reference Range Interpretation Comments PHOSPHORUS (BEAKER) (test code = 3.6 mg/dL 2.3-4.7 604) Coil Assembler ID - MARCOCBC W/PLT COUNT & AUTO [id number] 04:56:52 Test Item Value Reference Range Interpretation [...] PERCENT (BEAKER) (test code = 2801) POCT-GLUCOSE [id number] 00:26:59 Test Item Value Reference Range Interpretation Comments POC-GLUCOSE METER 135 mg/dL 70-110 H : TESTED A T [facility] 6720 (BEAKER) (test code = [facility], [facility]) 89993: Coil Assembler/Techni smiley ID = [id number] for Teresa Rose POCT-GLUCOSE [id number] 17:22:27 Test Item Value Reference Range Interpretation Comments POC-GLUCOSE METER 127 mg/dL 70-110 H : TESTED A T [facility] 6720 (BEAKER) (test code = [facility], [facility]) 34106: Coil Assembler/Techni smiley ID = [id number] for Um eh, Akumbu POCT-GLUCOSE [id number] 17:20:21 Test Item Value Reference Range Interpretation Comments POC-GLUCOSE METER 23 mg/dL 70-110 LL : TESTED A T [facility] 6720 (BEAKER) (test code = [facility], [facility]) 28402: Coil Assembler/Techni smiley ID = [id number] for Umeh , Akumbu POCT-GLUCOSE [id number] 12:34:42 Test Item Value Reference Range Interpretation Comments POC-GLUCOSE METER 129 mg/dL 70-110 H : TESTED A T [facility] 6720 (BEAKER) (test code = [facility], [facility]) 34403: Coil Assembler/Techni smiley ID = [id number] for Um eh, [place]umbu [id number] 08:08:41 Test Item Value Reference Range Interpretation Comments MAGNESIUM (BEAKER) (test code = 1.9 mg/dL 1.6-2.6 627) Coil Assembler ID - [id number] 08:08:41 Test Item Value Reference Range Interpretation Comments PHOSPHORUS (BEAKER) (test code = 3.5 mg/dL 2.3-4.7 604) Coil Assembler ID - ADMINBASIC METABOLIC [id number] 08:08:40 Test Item Value Reference Range Interpretation [...] not appl icable for dialysis patien ts Coil Assembler ID - ADMINPOCT-GLUCOSE [id number] 07:08:26 Test Item Value Reference Range Interpretation Comments POC-GLUCOSE METER 119 mg/dL 70-110 H : TESTED A T [facility] 6720 (BEAKER) (test code = [place], 1538) [address]: Coil Assembler/Techni smiley ID = [id number] for Teresa Rose CBC W/PLT COUNT & AUTO [id number] 06:25:01 Test Item Value Reference Range Interpretation [...] PERCENT (BEAKER) (test code = 2801) POCT-GLUCOSE [id number] 23:32:08 Test Item Value Reference Range Interpretation Comments POC-GLUCOSE METER 97 mg/dL 70-110 : TESTED A T [facility] 6720 ([facility]) (test code = [facility], 1538) 55324: Coil Assembler/Techni smiley ID = [id number] for Teresa Camejo POCT-GLUCOSE [id number] 17:52:25 Test Item Value Reference Range Interpretation Comments POC-GLUCOSE METER 121 mg/dL 70-110 H : TESTED A T [facility] 6720 ([facility]) (test code = [facility], 1538) 05448: Coil Assembler/Techni smiley ID = [id number] for Donna Rolle POCT-GLUCOSE [id number] 12:24:17 Test Item Value Reference Range Interpretation Comments POC-GLUCOSE METER 106 mg/dL 70-110 : TESTED A T [facility] 6720 ([facility]) (test code = [facility], 1538) 14093: Coil Assembler/Techni smiley ID = [id number] for An Donna lucas VANCOMYCIN LEVEL, [id number] 10:00:44 Test Item Value Reference Range Interpretation Comments VANCOMYCIN TROUGH ([facility]) (test 35.0 ug/mL 10.0-20.0 HH code = 522) Coil Assembler ID - ADMINPOCT-GLUCOSE [id number] 06:04:34 Test Item Value Reference Range Interpretation Comments POC-GLUCOSE METER 98 mg/dL 70-110 : [facility] 6720 [facility] (test code = [facility], 1538) 03561: Coil Assembler/Techni smiley ID = [id number] for Andi Warren [id number] 04:34:22 Test Item Value Reference Range Interpretation Comments PHOSPHORUS (BEAKER) (test code = 4.3 mg/dL 2.3-4.7 604) Coil Assembler ID - mmBASIC METABOLIC [id number] 04:34:21 Test Item Value Reference Range Interpretation [...] not appl icable for dialysis patien ts Coil Assembler ID - [id number] 04:34:21 Test Item Value Reference Range Interpretation Comments MAGNESIUM (BEAKER) (test code = 2.0 mg/dL 1.6-2.6 627) Coil Assembler ID - mmCBC W/PLT COUNT & AUTO [id number] 04:15:17 Test Item Value Reference Range Interpretation [...] PERCENT (BEAKER) (test code = 2801) POCT-GLUCOSE [id number] 00:10:22 Test Item Value Reference Range Interpretation Comments POC-GLUCOSE METER 102 mg/dL 70-110 : TESTED Oscar Art [facility] 6720 (BEAKER) (test code [facility], = 1538) 66047: Coil Assembler/Techni smiley ID = [id number] for Andi Warren BASIC METABOLIC [id number] 19:00:42 Test Item Value Reference Range Interpretation [...] not appl icable for dialysis patien ts Coil Assembler ID - JSPOCT-GLUCOSE [id number] 17:28:38 Test Item Value Reference Range Interpretation Comments POC-GLUCOSE METER 122 mg/dL 70-110 H : TESTED A T [facility] 6720 (BEAKER) (test code = [facility], 153) 70451: Coil Assembler/Techni smiley ID = [id number] for An derson, Donna POCT-GLUCOSE [id number] 12:36:44 Test Item Value Reference Range Interpretation Comments POC-GLUCOSE METER 110 mg/dL 70-110 : TESTED A T [facility] 6720 (BEAKER) (test code = [facility], 153) 53112: Coil Assembler/Techni smiley ID = [id number] for An derson, Donna [id number] 06:20:37 Test Item Value Reference Range Interpretation Comments MAGNESIUM (BEAKER) (test code = 2.2 mg/dL 1.6-2.6 627) Coil Assembler ID - [id number] 06:20:37 Test Item Value Reference Range Interpretation Comments PHOSPHORUS (BEAKER) (test code = 3.9 mg/dL 2.3-4.7 604) Coil Assembler ID - ADMINBASIC METABOLIC [id number] 06:20:36 Test Item Value Reference Range Interpretation [...] not appl icable for dialysis patien ts Coil Assembler ID - ADMINPOCT-GLUCOSE [id number] 06:09:53 Test Item Value Reference Range Interpretation Comments POC-GLUCOSE METER 69 mg/dL 70-110 L : TESTED A T [facility] 6720 (BEAKER) (test code = [place], 1538) [address]: Coil Assembler/Techni smiley ID = [id number] for Andi Warren CBC W/PLT COUNT & AUTO [id number] 05:15:05 Test Item Value Reference Range Interpretation [...] = 2801) XR abdomen / KUB 1 [id number] 21:59:17EXAM/TECHNIQUE: XR ABDOMEN/KUB 1 VIEW PORTABLE INDICATION: Confirm corpak placement COMPARISON: 11/05/2022. FINDINGS: Feeding tube terminates in the distal stomach. No dilated loops of largesmall bowel.No acute osseous process. Lung bases are clear.[facility] XR ABDOMEN/KUB 1 VIEW [id number] 21:59:17 [facility] : 1975 Sex: FEXAM/TECHNIQUE: XR ABDOMEN/KUB 1 VIEW PORTABLEINDICATION: Confirm corpak placementCOMPARISON: 11/05/2022.FINDINGS: Feeding tube terminates in the distal stomach. No dilated loops of largesmall bowel. No acute osseous process. Lung bases are clear.IMPRESSION:Feeding tube terminates in the distal stomach.Electronically Signed By: Carlos Preciado11/07/2022 22:01 CDTWorkstation Name: [id number] METABOLIC [id number] 18:29:04 Test Item Value Reference Range Interpretation [...] (test code = 697) EGFR (BEAKER) 42 Interpretati on of eGFR (test code = [...] not appl icable for dialysis patien ts Coil Assembler ID - BSDrug screen, urine, xnknhwnqiuzdz7895-66-55 08:47:31 Test Item Value Reference Range Interpretation Comments Scan Result (test see scanned report See scanned report. code = 4273886) SUE (test code = see scanned report SUE) [facility], [id number] 08:47:31 Test Item Value Reference Range Interpretation Comments Scan Result (test see scanned report See scanned report. code = 8327423) SUE (test code = see scanned report SUE) [facility], [id number] 08:47:31 Test Item Value Reference Range Interpretation Comments Scan Result (test see scanned report See scanned report. code = 2898331) SUE (test code = see scanned report SUE) [facility], [id number] 08:47:31 Test Item Value Reference Range Interpretation Comments Scan Result (test see scanned report See scanned report. code = [id number]) SUE (test code = see scanned report SUE) [facility], [id number] 08:47:31 Test Item Value Reference Range Interpretation Comments Scan Result (test see scanned report See scanned report. code = [id number]) SUE (test code = see scanned report SUE) [facility], [id number] 08:47:31 Test Item Value Reference Range Interpretation Comments Scan Result (test see scanned report See scanned report. code = 6282937) SUE (test code = see scanned report SUE) [facility], [facility], [id number] 08:47:31 Test Item Value Reference Range Interpretation Comments Scan Result (test see scanned report See scanned report. code = 3008903) SUE (test code = see scanned report SUE) [facility], URINE, [id number] 08:47:31 Test Item Value Reference Range Interpretation Comments SCAN RESULT (test see scanned report See scanned report. code = 4941865) see scanned reportPOCT-GLUCOSE [id number] 06:13:13 Test Item Value Reference Range Interpretation Comments POC-GLUCOSE METER 81 mg/dL 70-110 : [facility] (BEAKER) (test code = [place], 1538) [address]: Coil Assembler/Techni smiley ID = [id number] for Jessica Rodrigues [id number] 04:03:55 Test Item Value Reference Range Interpretation Comments PHOSPHORUS (BEAKER) (test code = 4.8 mg/dL 2.3-4.7 H 604) Coil Assembler ID - EMBASIC METABOLIC [id number] 04:03:54 Test Item Value Reference Range Interpretation [...] not appl icable for dialysis patien ts Coil Assembler ID - [id number] 04:03:54 Test Item Value Reference Range Interpretation Comments MAGNESIUM (BEAKER) (test code = 2.4 mg/dL 1.6-2.6 627) Coil Assembler ID - EMHIGH SENSITIVITY TROPONIN [id number] 03:58:57 Test Item Value Reference Range Interpretation Comments HIGH SENSITIVITY 165 pg/ml See_Comment H [Automated message] TROPONIN I (test code The sy stem which = 6330460) generated this result transmitted ref erence range: <=17. Th e reference range was not used to int erpret this result as normal/abnormal . Coil Assembler ID - EMThe [facility] MAGISTRATE STAT High Sensitivity Troponin-I results should be used in conjunctionwith other diagnostic information such as ECG, clinical observations and information, and patient symptoms to aid in the diagnosis of PR.CBC W/PLT COUNT & AUTO [id number] 03:38:52 Test Item Value Reference Range Interpretation [...] PERCENT (BEAKER) (test code = 2801) POCT-GLUCOSE [id number] 00:25:14 Test Item Value Reference Range Interpretation Comments POC-GLUCOSE METER 88 mg/dL 70-110 : TESTED A T [facility] 6720 (BEAKER) (test code = SRIRAMTOPHER [place], 1538) [address]: Coil Assembler/Techni smiley ID = [id number] for Jessica Rodrigues HIGH SENSITIVITY TROPONIN [id number] 22:04:24 Test Item Value Reference Range Interpretation Comments HIGH SENSITIVITY 193 pg/ml See_Comment H [Automated message] TROPONIN I (test code The sy stem which = 3131508) generated this result transmitted ref erence range: <=17. Th e reference range was not used to int erpret this result as normal/abnormal . Coil Assembler ID - DBThe [facility] MAGISTRATE STAT High Sensitivity Troponin-I results should be used in conjunctionwith other diagnostic information such as ECG, clinical observations and information, and patient symptoms to aid in the diagnosis of PR.Urinalysis w/Microscopic + Reflex to [id number] 15:49:18 Test Item Value Reference Range Interpretation Comments Color, UA (test code Yellow = 5778-6) Clarity, UA (test Cloudy code = 5767-9) Specific [place], UA 1.021 1.001-1.035 (test code = 5811-5) pH, UA (test code = 6.0 5.0-8.0 5803-2) Protein, UA (test 70 mg/dL Negative A code = 00304-2) Glucose, UA (test Negative Negative code = 365) Ketones, UA (test Negative Negative code = 2514-8) Bilirubin, UA (test Negative Negative code = 66625-9) Blood, UA (test code Moderate Negative A = 12002-0) Nitrite, UA (test Negative Negative code = 5802-4) Leukocytes, UA (test Trace Negative A code = 5799-2) Urobilinogen, UA 0.2 0.2-1.0 (test code = 45017-4) RBC, UA (test code = 23 See_Comment [Autom ated 43912-7) message] The system which generated this result [...] 6 See_Comment [Automate d (test code = 27231-7) messag e] The system which generated this result transmit markie reference range : /HPF. The reference range was not used to interpret this result as normal/abnormal . Hyaline Casts, UA 1 See_Comment [Automate d (test code = 96564-0) messag e] The system which generated this result transmit markie reference range : /LPF. The reference range was not used to interpret this result as normal/abnormal . Specimen Source (test code = 2795) SUE (test code = SUE) Coil Assembler ID - [auto]Coil Assembler ID - bs Lab Interpretation Abnormal (test code = 23364-4) [facility] CenterUrinal[facility] w/[facility]scopic + Reflex to Culture 2022-11-06 15:49:18 Test Item Value Reference Range Interpretation Comments Color, UA (test code Yellow = 5778-6) Clarity, UA (test Cloudy code = 5767-9) Specific [place], UA 1.021 1.001-1.035 (test code = 5811-5) pH, UA (test code = 6.0 5.0-8.0 5803-2) Protein, UA (test 70 mg/dL Negative A code = 27566-2) Glucose, UA (test Negative Negative code = 365) Ketones, UA (test Negative Negative code = 2514-8) Bilirubin, UA (test Negative Negative code = 23519-7) Blood, UA (test code Moderate Negative A = 89059-3) Nitrite, UA (test Negative Negative code = 5802-4) Leukocytes, UA (test Trace Negative A code = 5799-2) Urobilinogen, UA 0.2 0.2-1.0 (test code = 82143-8) RBC, UA (test code = 23 See_Comment [Autom ated 04499-0) message] The system which generated this result [...] 6 See_Comment [Automate d (test code = 66728-7) messag e] The system which generated this result transmit markie reference range : /HPF. The reference range was not used to interpret this result as normal/abnormal . Hyaline Casts, UA 1 See_Comment [Automate d (test code = 00500-4) messag e] The system which generated this result transmit markie reference range : /LPF. The reference range was not used to interpret this result as normal/abnormal . Specimen Source (test code = 2795) SUE (test code = SUE) Coil Assembler ID - [auto]Coil Assembler ID - bs Lab Interpretation Abnormal (test code = 61616-0) [facility] + Reflex to Culture 2022-11-06 15:49:18 Test Item Value Reference Range Interpretation Comments Color, UA (test code Yellow = 5778-6) Clarity, UA (test Cloudy code = 5767-9) Specific [place], UA 1.021 1.001-1.035 (test code = 5811-5) pH, UA (test code = 6.0 5.0-8.0 5803-2) Protein, UA (test 70 mg/dL Negative A code = 67058-9) Glucose, UA (test Negative Negative code = 365) Ketones, UA (test Negative Negative code = 2514-8) Bilirubin, UA (test Negative Negative code = 52477-0) Blood, UA (test code Moderate Negative A = 78284-5) Nitrite, UA (test Negative Negative code = 5802-4) Leukocytes, UA (test Trace Negative A code = 5799-2) Urobilinogen, UA 0.2 0.2-1.0 (test code = 77782-9) RBC, UA (test code = 23 See_Comment [Autom ated 81917-4) message] The system which generated this result [...] 6 See_Comment [Automate d (test code = 81672-6) messag e] The system which generated this result transmit markie reference range : /HPF. The reference range was not used to interpret this result as normal/abnormal . Hyaline Casts, UA 1 See_Comment [Automate d (test code = 10531-7) messag e] The system which generated this result transmit markie reference range : /LPF. The reference range was not used to interpret this result as normal/abnormal . Specimen Source (test code = 2795) SUE (test code = SUE) Coil Assembler ID - [auto]Coil Assembler ID - bs Lab Interpretation Abnormal (test code = 17898-8) [facility] + Reflex to Culture 2022-11-06 15:49:18 Test Item Value Reference Range Interpretation Comments Color, UA (test code Yellow = 5778-6) Clarity, UA (test Cloudy code = 5767-9) Specific [place], UA 1.021 1.001-1.035 (test code = 5811-5) pH, UA (test code = 6.0 5.0-8.0 5803-2) Protein, UA (test 70 mg/dL Negative A code = 34721-6) Glucose, UA (test Negative Negative code = 365) Ketones, UA (test Negative Negative code = 2514-8) Bilirubin, UA (test Negative Negative code = 18850-2) Blood, UA (test code Moderate Negative A = 26270-6) Nitrite, UA (test Negative Negative code = 5802-4) Leukocytes, UA (test Trace Negative A code = 5799-2) Urobilinogen, UA 0.2 0.2-1.0 (test code = 93396-5) RBC, UA (test code = 23 See_Comment [Autom ated 18710-7) message] The system which generated this result [...] 6 See_Comment [Automate d (test code = 83810-8) messag e] The system which generated this result transmit markie reference range : /HPF. The reference range was not used to interpret this result as normal/abnormal . Hyaline Casts, UA 1 See_Comment [Automate d (test code = 38870-4) messag e] The system which generated this result transmit markie reference range : /LPF. The reference range was not used to interpret this result as normal/abnormal . Specimen Source (test code = 2795) SUE (test code = SUE) Coil Assembler ID - [auto]Coil Assembler ID - bs Lab Interpretation Abnormal (test code = 09185-7) [facility] + Reflex to Culture 2022-11-06 15:49:18 Test Item Value Reference Range Interpretation Comments Color, UA (test code Yellow = 5778-6) Clarity, UA (test Cloudy code = 5767-9) Specific [place], UA 1.021 1.001-1.035 (test code = 5811-5) pH, UA (test code = 6.0 5.0-8.0 5803-2) Protein, UA (test 70 mg/dL Negative A code = 46629-1) Glucose, UA (test Negative Negative code = 365) Ketones, UA (test Negative Negative code = 2514-8) Bilirubin, UA (test Negative Negative code = 68680-3) Blood, UA (test code Moderate Negative A = 07213-9) Nitrite, UA (test Negative Negative code = 5802-4) Leukocytes, UA (test Trace Negative A code = 5799-2) Urobilinogen, UA 0.2 0.2-1.0 (test code = 88108-9) RBC, UA (test code = 23 See_Comment [Autom ated 66579-5) message] The system which generated this result [...] 6 See_Comment [Automate d (test code = 04539-1) messag e] The system which generated this result transmit markie reference range : /HPF. The reference range was not used to interpret this result as normal/abnormal . Hyaline Casts, UA 1 See_Comment [Automate d (test code = 47807-0) messag e] The system which generated this result transmit markie reference range : /LPF. The reference range was not used to interpret this result as normal/abnormal . Specimen Source (test code = 2795) SUE (test code = SUE) Coil Assembler ID - [auto]Coil Assembler ID - bs Lab Interpretation Abnormal (test code = 92515-0) [facility] + Reflex to Culture 2022-11-06 15:49:18 Test Item Value Reference Range Interpretation Comments Color, UA (test code Yellow = 5778-6) Clarity, UA (test Cloudy code = 5767-9) Specific [place], UA 1.021 1.001-1.035 (test code = 5811-5) pH, UA (test code = 6.0 5.0-8.0 5803-2) Protein, UA (test 70 mg/dL Negative A code = 80112-6) Glucose, UA (test Negative Negative code = 365) Ketones, UA (test Negative Negative code = 2514-8) Bilirubin, UA (test Negative Negative code = 92456-6) Blood, UA (test code Moderate Negative A = 67410-5) Nitrite, UA (test Negative Negative code = 5802-4) Leukocytes, UA (test Trace Negative A code = 5799-2) Urobilinogen, UA 0.2 0.2-1.0 (test code = 41992-3) RBC, UA (test code = 23 See_Comment [Autom ated 78135-4) message] The system which generated this result [...] 6 See_Comment [Automate d (test code = 40240-1) messag e] The system which generated this result transmit markie reference range : /HPF. The reference range was not used to interpret this result as normal/abnormal . Hyaline Casts, UA 1 See_Comment [Automate d (test code = 85649-1) messag e] The system which generated this result transmit markie reference range : /LPF. The reference range was not used to interpret this result as normal/abnormal . Specimen Source (test code = 2795) SUE (test code = SUE) Coil Assembler ID - [auto]Coil Assembler ID - bs Lab Interpretation Abnormal (test code = 33743-0) [facility] + Reflex to Culture 2022-11-06 15:49:18 Test Item Value Reference Range Interpretation Comments Color, UA (test code Yellow = 5778-6) Clarity, UA (test Cloudy code = 5767-9) Specific [place], UA 1.021 1.001-1.035 (test code = 5811-5) pH, UA (test code = 6.0 5.0-8.0 5803-2) Protein, UA (test 70 mg/dL Negative A code = 54799-7) Glucose, UA (test Negative Negative code = 365) Ketones, UA (test Negative Negative code = 2514-8) Bilirubin, UA (test Negative Negative code = 57108-7) Blood, UA (test code Moderate Negative A = 87669-1) Nitrite, UA (test Negative Negative code = 5802-4) Leukocytes, UA (test Trace Negative A code = 5799-2) Urobilinogen, UA 0.2 0.2-1.0 (test code = 98105-7) RBC, UA (test code = 23 See_Comment [Autom ated 82243-5) message] The system which generated this result [...] 6 See_Comment [Automate d (test code = 94304-2) messag e] The system which generated this result transmit markie reference range : /HPF. The reference range was not used to interpret this result as normal/abnormal . Hyaline Casts, UA 1 See_Comment [Automate d (test code = 83949-0) messag e] The system which generated this result transmit markie reference range : /LPF. The reference range was not used to interpret this result as normal/abnormal . Specimen Source (test code = 2795) SUE (test code = SUE) Coil Assembler ID - [auto]Coil Assembler ID - bs Lab Interpretation Abnormal (test code = 64578-0) [facility]URIN[facility]FLEX URINE [id number] 15:49:18 Test Item Value Reference Range Interpretation [...] /LPF 514) SOURCE(BEAKER) (test code = 2795) Coil Assembler ID - [auto]Coil Assembler ID - bsPT/[id number] 15:35:00 Test Item Value Reference Range Interpretation [...] patients with mechanical heart valves.HIGH SENSITIVITY TROPONIN [id number] 15:30:15 Test Item Value Reference Range Interpretation Comments HIGH SENSITIVITY 264 pg/ml See_Comment H [Automated message] TROPONIN I (test code The sy stem which = 2070044) generated this result transmitted ref erence range: <=17. Th e reference range was not used to int erpret this result as normal/abnormal . Coil Assembler ID - ADMINThe [facility] [facility] MAGISTRATE STAT High Sensitivity Troponin-I results should be used in conjunction with other diagnostic information such as ECG, clinical observations and information, and patientsymptoms to aid in the diagnosis of PR. Blood gas, [id number] 15:09:57 Test Item Value Reference Range Interpretation Comments pH, Arterial (test code 7.40 7.35-7.45 = 2744-1) pCO2, Arterial (test 44 See_Comment [Autom ated message] code = 2018-10) The system [facility] generated this result transmit markie reference range : 35 - 45 mm Hg. The reference range was not used to interpret this result as normal/abnormal . pO2, Arterial (test 195 See_Comment H [Automa markie message] code = 2703-7) The system [employer] generated this result transmit markie reference range [...] 36.0 Lab Interpretation Abnormal (test code = 56916-5) [facility] CenterBlood [facility], [id number] 15:09:57 Test Item Value Reference Range Interpretation Comments pH, Arterial (test code 7.40 7.35-7.45 = 2744-1) pCO2, Arterial (test 44 See_Comment [Autom ated message] code = 2018-10) The system [employer] generated this result transmit markie reference range : 35 - 45 mm Hg. The reference range was not used to interpret this result as normal/abnormal . pO2, Arterial (test 195 See_Comment H [Automa markie message] code = 2703-7) The system [employer] generated this result transmit markie reference range [...] 36.0 Lab Interpretation Abnormal (test code = 78613-9) [facility] CenterBlood [facility], [id number] 15:09:57 Test Item Value Reference Range Interpretation Comments pH, Arterial (test code 7.40 7.35-7.45 = 2744-1) pCO2, Arterial (test 44 See_Comment [Autom ated message] code = 2019-) The system [employer] generated this result transmit markie reference range : 35 - 45 mm Hg. The reference range was not used to interpret this result as normal/abnormal . pO2, Arterial (test 195 See_Comment H [Automa markie message] code = 2703-7) The system [employer] generated this result transmit markie reference range [...] 36.0 Lab Interpretation Abnormal (test code = 61664-7) [facility] CenterBlood [facility], [id number] 15:09:57 Test Item Value Reference Range Interpretation Comments pH, Arterial (test code 7.40 7.35-7.45 = 2744-1) pCO2, Arterial (test 44 See_Comment [Autom ated message] code = 2019-8) The system [employer] generated this result transmit markie reference range : 35 - 45 mm Hg. The reference range was not used to interpret this result as normal/abnormal . pO2, Arterial (test 195 See_Comment H [Automa markie message] code = 2703-7) The system [employer] generated this result transmit markie reference range [...] 36.0 Lab Interpretation Abnormal (test code = 09311-4) [facility] CenterBlood [facility], [id number] 15:09:57 Test Item Value Reference Range Interpretation Comments pH, Arterial (test code 7.40 7.35-7.45 = 2744-1) pCO2, Arterial (test 44 See_Comment [Autom ated message] code = 2019-) The system [facility] generated this result transmit markie reference range : 35 - 45 mm Hg. The reference range was not used to interpret this result as normal/abnormal . pO2, Arterial (test 195 See_Comment H [Automa markie message] code = 2703-7) The system [facility] generated this result transmit markie reference range [...] 36.0 Lab Interpretation Abnormal (test code = 54743-6) [facility] CenterBlood [facility], [id number] 15:09:57 Test Item Value Reference Range Interpretation Comments pH, Arterial (test code 7.40 7.35-7.45 = 2744-1) pCO2, Arterial (test 44 See_Comment [Autom ated message] code = 2019-) The system [employer] generated this result transmit markie reference range : 35 - 45 mm Hg. The reference range was not used to interpret this result as normal/abnormal . pO2, Arterial (test 195 See_Comment H [Automa markie message] code = 2703-7) The system [employer] generated this result transmit markie reference range [...] 36.0 Lab Interpretation Abnormal (test code = 53847-3) [facility] gas, [id number] 15:09:57 Test Item Value Reference Range Interpretation Comments pH, Arterial (test code 7.40 7.35-7.45 = 2744-1) pCO2, Arterial (test 44 See_Comment [Autom ated message] code = 2018-10) The system [employer] generated this result transmit markie reference range : 35 - 45 mm Hg. The reference range was not used to interpret this result as normal/abnormal . pO2, Arterial (test 195 See_Comment H [Automa markie message] code = 2703-7) The system [employer] generated this result transmit markie reference range [...] 36.0 Lab Interpretation Abnormal (test code = 26569-3) [facility] CenterBL[facility]OD GAS, [id number] 15:09:57 Test Item Value Reference Range Interpretation [...] (test code = 1819) 36.0 ECG 12 [id number] 13:44:42Ventricular Rate 62 BPMAtrial Rate 62 BPMP-R Interval 180 msQRS Duration 90 msQ-T Interval 454 msQTCCalculation(Bazett) 460 msP [place] 19 degreesR [place] 64 degreesT [place] 254 degrees Normal sinus rhythmPos sible Left atrial enlargementLeft ventricular hypertrophy with repolarization abnormalityAbnormal ECGWhen compared with ECG of 01-AUG-2022 10:14,ST now depressed in Inferior leadsT wave inversion more evident in Inferior leads Confirmed by MD CHARLES YOCHAI ([id number]) on 11/06/2022 1:44:41 [facility] [id number] 13:44:42Ventricular Rate 62 BPMAtrial Rate 62 BPMP-R Interval 180 msQRS Duration 90 msQ-T Interval 454 msQTC Calculation(Bazett) 460 msP [place] 19 degreesR [place] 64 degreesT [place] 254 degrees Normal sinus rhythmPossible Left atrial enlargementLeft ventricular hypertrophy with repolarization abnormalityAbnormal ECGWhen compared with ECG of 01-AUG-2022 10:14,ST now depressed in Inferior leadsT wave inversion more evident in Inferior leads Confirmed by MD CHARLES YOCHAI ([id number]) on 11/06/2022 1:44:41 PM [facility] 12 [id number] 13:44:42Ventricular Rate 62 BPMAtrial Rate 62 BPMP-R Interval 180 msQRS Duration 90 msQ-T Interval 454 msQTC Calculation(Bazett) 460 msP [place] 19 degreesR [place] 64 degreesT [place] 254 degrees Normal sinus rhythmPossible Left atrial enlargementLeft ventricular hypertrophy with repolarization abnormalityAbnormal ECGWhen compared with ECG of 01-AUG-2022 10:14,ST now depressed in Inferior leadsT wave inversion more evident in Inferior leads Confirmed by MD CHARLES YOCHAI (1903) on 11/06/2022 1:44:41 PM [facility] 12 [id number] 13:44:42Ventricular Rate 62 BPMAtrial Rate 62 BPMP-R Interval 180 msQRS Duration 90 msQ-T Interval 454 msQTC Calculation(Bazett) 460 msP [place] 19 degreesR [place] 64 degreesT [place] 254 degrees Normal sinus rhythmPossible Left atrial enlargementLeft ventricular hypertrophy with repolarization abnormalityAbnormal ECGWhen compared with ECG of 01-AUG-2022 10:14,ST now depressed in Inferior leadsT wave inversion more evident in Inferior leads Confirmed by MD CHARLES YOCHAI (1903) on 11/06/2022 1:44:41 PM [facility] 12 [id number] 13:44:42Ventricular Rate 62 BPMAtrial Rate 62 BPMP-R Interval 180 msQRS Duration 90 msQ-T Interval 454 msQTC Calculation(Bazett) 460 msP [place] 19 degreesR [place] 64 degreesT [place] 254 degrees Normal sinus rhythmPossible Left atrial enlargementLeft ventricular hypertrophy with repolarization abnormalityAbnormal ECGWhen compared with ECG of 01-AUG-2022 10:14,ST now depressed in Inferior leadsT wave inversion more evident in Inferior leads Confirmed by MD CHARLES YOCHAI (1903) on 11/06/2022 1:44:41 PM [facility] 12 [id number] 13:44:42Ventricular Rate 62 BPMAtrial Rate 62 BPMP-R Interval 180 msQRS Duration 90 msQ-T Interval 454 msQTC Calculation(Bazett) 460 msP [place] 19 degreesR [place] 64 degreesT [place] 254 degrees Normal sinus rhythmPossible Left atrial enlargementLeft ventricular hypertrophy with repolarization abnormalityAbnormal ECGWhen compared with ECG of 01-AUG-2022 10:14,ST now depressed in Inferior leadsT wave inversion more evident in Inferior leads Confirmed by MD CHARLES YOCHAI (1903) on 11/06/2022 1:44:41 PM [facility] [id number] 13:44:42Ventricular Rate 62 BPMAtrial Rate 62 BPMP-R Interval 180 msQRS Duration 90 msQ-T Interval 454 msQTC Calculation(Bazett) 460 msP [place] 19 degreesR [place] 64 degreesT [place] 254 degrees Normal sinus rhythmPossible Left atrial enlargementLeft ventricular hypertrophy with repolarization abnormalityAbnormal ECGWhen compared with ECG of 01-AUG-2022 10:14,ST now depressed in Inferior leadsT wave inversion more evident in Inferior leads Confirmed by MD CHARLES YOCHAI (1903) on 11/06/2022 1:44:41 PM [facility] CenterXR [facility] 1 view portable / [id number] 13:38:36 Chest, 1 view, 11/06/2022 11:58 AM. History: r/o aspiration pneumonia. Comparison: 10/30/2022. Discussion: The cardiac silhouette is prominent but stable. Lungs areclear. There is no pneumothorax. Feeding tube terminates below thehemidiaphragm. Right IJ central line is no longer present. There are noacute osseous findings.[facility] CenterXR CHEST 1 VIEW PORTABLE / BEDSIDE 2022-11-06 13:38:36 [facility] Irineo : 1975 Sex: FChest, 1 view, 11/06/2022 11:58 AM.History: r/o aspiration pneumonia.Comparison: 10/30/2022.Discussion: Thecardiac silhouette is prominent but stable. Lungs areclear. There is no pneumothorax. Feeding tube terminates below thehemidiaphragm. Right IJ central line is no longer present. There are noacute osseous findings.IMPRESSION:No acute pulmonary findings.Electronically Signed By: Sage Caruso11/06/2022 13:40 CDTWorkstation Name: [id number] 2022-11-06 11:32:33 Test Item Value Reference Range Interpretation Comments PROCALCITONIN (BEAKER) (test code 0.31 ng/mL <0.05 H = 3036) SEPSIS RISK (ng/mL)Low: 0.05-0.50Intermediate: 0.51-2.00High: >=2.01HIGH SENSITIVITY TROPONIN [id number] 11:27:53 Test Item Value Reference Range Interpretation Comments HIGH SENSITIVITY 344 pg/ml See_Comment H [Automated message] TROPONIN I (test code The sy stem which = [id number]) generated this result transmitted ref erence range: <=17. Th e reference range was not used to int erpret this result as normal/abnormal . Coil Assembler ID - DAMIÁN WThe [facility]ICENSING [facility] MAGISTRATE STAT High Sensitivity Troponin-I results should be used in conjunction with other diagnostic information such as ECG, clinical observations and information, and patient symptoms to aid in the diagnosis of PR.LACTIC ACID, [id number] 11:07:17 Test Item Value Reference Range Interpretation Comments LACTATE BLOOD VENOUS (2) (BEAKER) 0.80 mmol/L 0.50-2.00 (test code = 2872) Coil Assembler ID - DAMIÁN WCT BRAIN WITHOUT IV [id number] 10:59:53 [facility] 1975 Sex: F [...] Signed By: Alexandra Liang11/06/2022 11:01 CDTWorkstation Name: [id number] [id number] 10:57:58 Test Item Value Reference Range Interpretation Comments POC-Glucose (test code = 117 mg/dL 70-110 H : Jasmeet SAINZ AT [facility] 0145) [address] [place] [address], 770 30: Coil Assembler/Techni smiley ID = [id number] for RACELIS, SHELBY INE Lab Interpretation (test Abnormal code = 51743-8) [facility]-[id number] 10:57:58 Test Item Value Reference Range Interpretation Comments POC-Hematocrit (test code 34 % 36-45 L : = 1857) Coil Assembler/Techni smiley ID = [id number] for RACELIS, SHELBY INE Lab Interpretation (test Abnormal code = 23419-3) [facility] [id number] 10:57:58 Test Item Value Reference Range Interpretation Comments POC-Glucose (test code = 117 mg/dL 70-110 H : T ESTED AT [facility] 1855) [address] [place] [address], 770 30: Coil Assembler/Techni smiley ID = [id number] for RACELIS, SHELBY INE Lab Interpretation (test Abnormal code = 40906-1) [facility]-[id number] 10:57:58 Test Item Value Reference Range Interpretation Comments POC-Hematocrit (test code 34 % 36-45 L : = 1857) Coil Assembler/Techni smiley ID = [id number] for RACELIS, SHELBY INE Lab Interpretation (test Abnormal code = 59166-3) [facility] Jdaisgh1830-05-96 10:57:58 Test Item Value Reference Range Interpretation Comments POC-Glucose (test code = 117 mg/dL 70-110 H : T ESTED AT [facility] 1855) [address] [place] [address], [facility] 30: Coil Assembler/Techni smiley ID = [id number] for RACELIS, SHELBY INE Lab Interpretation (test Abnormal code = 14882-2) [facility]-[id number] 10:57:58 Test Item Value Reference Range Interpretation Comments POC-Hematocrit (test code 34 % 36-45 L : = 1857) Coil Assembler/Techni smiley ID = [id number] for RACELIS, SHELBY INE Lab Interpretation (test Abnormal code = 50907-1) [facility] Xfuyvmd4781-59-93 10:57:58 Test Item Value Reference Range Interpretation Comments POC-Glucose (test code = 117 mg/dL 70-110 H : T ESTED AT [facility] 1855) [address] [place] [address], 770 30: Coil Assembler/Techni smiley ID = [id number] for RACELIS, SHELBY INE Lab Interpretation (test Abnormal code = 25501-4) [facility]-[id number] 10:57:58 Test Item Value Reference Range Interpretation Comments POC-Hematocrit (test code 34 % 36-45 L : = 1857) Coil Assembler/Techni smiley ID = [id number] for RACELIS, SHELBY INE Lab Interpretation (test Abnormal code = 47964-3) [facility] Cbczobx7943-36-44 10:57:58 Test Item Value Reference Range Interpretation Comments POC-Glucose (test code = 117 mg/dL 70-110 H : T ESTED AT [facility] 1855) [address] [place] [address], 770 30: Coil Assembler/Techni smiley ID = [id number] for RACELIS, SHELBY INE Lab Interpretation (test Abnormal code = 20040-4) [facility]-[id number] 10:57:58 Test Item Value Reference Range Interpretation Comments POC-Hematocrit (test code 34 % 36-45 L : = 1857) Coil Assembler/Techni smiley ID = [id number] for RACELIS, SHELBY INE Lab Interpretation (test Abnormal code = 25452-7) [facility] Ntbzacl3936-81-62 10:57:58 Test Item Value Reference Range Interpretation Comments POC-Glucose (test code = 117 mg/dL 70-110 H : T ESTED AT [facility] 1855) [address] [place] [address], 770 30: Coil Assembler/Techni smiley ID = [id number] for RACELIS, SHELBY INE Lab Interpretation (test Abnormal code = 23694-4) [facility]-[id number] 10:57:58 Test Item Value Reference Range Interpretation Comments POC-Hematocrit (test code 34 % 36-45 L : = 1857) Coil Assembler/Techni smiley ID = [id number] for RACELIS, SHELBY INE Lab Interpretation (test Abnormal code = 57306-1) [facility] Eigonqk6865-69-22 10:57:58 Test Item Value Reference Range Interpretation Comments POC-Glucose (test code = 117 mg/dL 70-110 H : T ESTED AT [facility] 1855) [address] [facility], 770 30: Coil Assembler/Techni smiley ID = [id number] for RACELIS, SHELBY INE Lab Interpretation (test Abnormal code = 80460-1) [facility]-RFSYGFAZKF8380-08-15 10:57:58 Test Item Value Reference Range Interpretation Comments POC-Hematocrit (test code 34 % 36-45 L : = 1857) Coil Assembler/Techni smiley ID = [id number] for RACELIS, SHELBY INE Lab Interpretation (test Abnormal code = 33191-5) [facility]-[id number] 10:57:58 Test Item Value Reference Range Interpretation Comments POC-HEMATOCRIT 34 % 36-45 L : Coil Assembler/Te chnician ID = (BEAKER) (test code = 333891 for RACELIS, 185) SAMY [id number]-[id number] 10:57:58 Test Item Value Reference Range Interpretation Comments POC-GLUCOSE (BEAKER) 117 mg/dL 70-110 H : TESTE D AT [facility] 67 (test code = 1855) [facility], [address]: Coil Assembler/Techni smiley ID = [id number] for RACE LIS SAMY RWM-Wgmhqsvvj2525-73-22 10:57:57 Test Item Value Reference Range Interpretation Comments POC-Potassium (test code 5.5 meq/L 3.6-5.5 : Jasmeet SAINZ AT [facility] = 1540) [address] [place] [address], 770 30: Coil Assembler/Techni smiley ID = [id number] for RACELIS, SHELBY INE Lab Interpretation (test Normal code = 48245-8) [facility]robz[facility]KZF-MMWPWFJNIL4196-09-22 10:57:57 Test Item Value Reference Range Interpretation Comments POC-Hemoglobin (test code 11.6 g/dL 12.0-15.0 L : TESTED AT [facility] = 1856) [address] [place] [address], 770 30: Coil Assembler/Techni smiley ID = [id number] for RACELIS, SHELBY INE Lab Interpretation (test Abnormal code = 46323-3) [facility]-Svmbktrmw0029-07-29 10:57:57 Test Item Value Reference Range Interpretation Comments POC-Potassium (test code 5.5 meq/L 3.6-5.5 : T ESTED AT [facility] = 1540) 20 [facility], 770 30: Coil Assembler/Techni smiley ID = [id number] for RACELIS, SHELBY INE Lab Interpretation (test Normal code = 32383-6) [facility]-[id number] 10:57:57 Test Item Value Reference Range Interpretation Comments POC-Hemoglobin (test code 11.6 g/dL 12.0-15.0 L : TESTED AT [facility] = 1856) [address] [place] [address], 770 30: Coil Assembler/Techni smiley ID = [id number] for RACELIS, SHELBY INE Lab Interpretation (test Abnormal code = 94088-3) [facility]-Yfjvkdwye4792-84-59 10:57:57 Test Item Value Reference Range Interpretation Comments POC-Potassium (test code 5.5 meq/L 3.6-5.5 : T ESTED AT [facility] = 1540) [address] [place] [address], 770 30: Coil Assembler/Techni smiley ID = [id number] for RACELIS, SHELBY INE Lab Interpretation (test Normal code = 19115-3) [facility]-HKSWNCCRLQ1409-48-73 10:57:57 Test Item Value Reference Range Interpretation Comments POC-Hemoglobin (test code 11.6 g/dL 12.0-15.0 L : TESTED AT [facility] = 1856) [address] [place] [address], 770 30: Coil Assembler/Techni smiley ID = [id number] for RACELIS, SHELBY INE Lab Interpretation (test Abnormal code = 81974-8) [facility]-Liyxbhsog5656-92-86 10:57:57 Test Item Value Reference Range Interpretation Comments POC-Potassium (test code 5.5 meq/L 3.6-5.5 : T ESTED AT [facility] = 1540) [address] [place] [address], 770 30: Coil Assembler/Techni smiley ID = [id number] for RACELIS, SHELBY INE Lab Interpretation (test Normal code = 82500-2) [facility]-VNRHVTRHUA7410-39-09 10:57:57 Test Item Value Reference Range Interpretation Comments POC-Hemoglobin (test code 11.6 g/dL 12.0-15.0 L : TESTED AT [facility] = 1856) [address] [place] [address], 770 30: Coil Assembler/Techni smiley ID = [id number] for RACELIS, SHELBY INE Lab Interpretation (test Abnormal code = 03781-8) [facility]-Yuggiqncq1445-32-22 10:57:57 Test Item Value Reference Range Interpretation Comments POC-Potassium (test code 5.5 meq/L 3.6-5.5 : T ESTED AT [facility] = 1540) [address] [place] [address], [facility] 30: Coil Assembler/Techni smiley ID = [id number] for RACELIS, SHELBY INE Lab Interpretation (test Normal code = 67132-6) [facility]-KYCCCMDLJZ2502-74-31 10:57:57 Test Item Value Reference Range Interpretation Comments POC-Hemoglobin (test code 11.6 g/dL 12.0-15.0 L : [facility] 18[facility] [address] [place] [address], [facility] 30: Coil Assembler/Techni smiley ID = [id number] for RACELIS, SHELBY INE Lab Interpretation (test Abnormal code = 06700-3) [facility]-Muhpfcjek8191-32-80 10:57:57 Test Item Value Reference Range Interpretation Comments POC-Potassium (test code 5.5 meq/L 3.6-5.5 : T ESTED AT [facility] = 1540) [address] [place] [address], [facility] 30: Coil Assembler/Techni smiley ID = [id number] for RACELIS, SHELBY INE Lab Interpretation (test Normal code = 28870-2) [facility]-HDKJHASXLX9748-20-38 10:57:57 Test Item Value Reference Range Interpretation Comments POC-Hemoglobin (test code 11.6 g/dL 12.0-15.0 L : [facility] 1856[facility] [address] [place] [address], [facility] 30: Coil Assembler/Techni smiley ID = [id number] for RACELIS, SHELBY INE Lab Interpretation (test Abnormal code = 94479-3) [facility]-Wreqovzmi2930-59-65 10:57:57 Test Item Value Reference Range Interpretation Comments POC-Potassium (test code 5.5 meq/L 3.6-5.5 : T ESTED AT [facility] = 1540) [address] [facility], 770 30: Coil Assembler/Techni smiley ID = [id number] for RACELIS, SHELBY INE Lab Interpretation (test Normal code = 58320-9) [facility] CenterQumfdmVWYS-PPHJSPRHEQ0030-91-22 10:57:57 Test Item Value Reference Range Interpretation Comments POC-Hemoglobin (test code 11.6 g/dL 12.0-15.0 L : TESTED AT [facility] = 1856) [address] [place] [address], 770 30: Coil Assembler/Techni smiley ID = [id number] for RACELIS, SHELBY INE Lab Interpretation (test Abnormal code = 42012-7) [facility] CenterPOCT-ZYMRAVRHQ7229-72-60 10:57:57 Test Item Value Reference Range Interpretation Comments POC-POTASSIUM 5.5 meq/L 3.6-5.5 : TESTED AT [place] [address] (BEAKER) (test code [facility], = 1540) [address]: Coil Assembler/Techni smiley ID = [id number] for RACE SHELBY GUPTAINE CTYY-[id number] 10:57:57 Test Item Value Reference Range Interpretation Comments POC-HEMOGLOBIN 11.6 g/dL 12.0-15.0 L : TESTED AT [place] [address] (BEAKER) (test code [facility], = 1856) [address]: Coil Assembler/Techni smiley ID = [id number] for RACE LISSHELBYSAMY GFN-Zkulwk0975-89-22 10:57:52 Test Item Value Reference Range Interpretation Comments POC-Sodium (test code = 142 meq/L 135-148 : TE STED AT [facility] 1542) [address] [place] [address], 770 30: Coil Assembler/Techni smiley ID = [id number] for RACELIS, SHELBY INE Lab Interpretation (test Normal code = 77283-2) [facility] CenterPOC-Zfsnze0491-45-30 10:57:52 Test Item Value Reference Range Interpretation Comments POC-Sodium (test code = 142 meq/L 135-148 : TE STED AT [facility] 1542) [address] [place] [address], 770 30: Coil Assembler/Techni smiley ID = [id number] for RACELIS, SHELBY INE Lab Interpretation (test Normal code = 49527-0) [facility]-Gaiuif4706-31-77 10:57:52 Test Item Value Reference Range Interpretation Comments POC-Sodium (test code = 142 meq/L 135-148 : TE STED AT [facility] 1542) [address] [place] [address], 770 30: Coil Assembler/Techni smiley ID = [id number] for RACELIS, SHELBY INE Lab Interpretation (test Normal code = 10096-1) [facility] CenterYxpgja8521-73-23 10:57:52 Test Item Value Reference Range Interpretation Comments POC-Sodium (test code = 142 meq/L 135-148 : TE STED AT [facility] 1542) [address] [place] [address], 770 30: Coil Assembler/Techni smiley ID = [id number] for RACELIS, SHELBY INE Lab Interpretation (test Normal code = 92547-7) [facility] CenterAsjgrw3104-17-56 10:57:52 Test Item Value Reference Range Interpretation Comments POC-Sodium (test code = 142 meq/L 135-148 : TE STED AT [facility] 1542) [address] [place] [address], [facility] 30: Coil Assembler/Techni smiley ID = [id number] for RACELIS, SHELBY INE Lab Interpretation (test Normal code = 97922-1) [facility] CenterWgjayu1938-87-26 10:57:52 Test Item Value Reference Range Interpretation Comments POC-Sodium (test code = 142 meq/L 135-148 : TE STED AT [facility] 1542) [address] [place] [address], [facility] 30: Coil Assembler/Techni smiley ID = [id number] for RACELIS, SHELBY INE Lab Interpretation (test Normal code = 40119-5) [facility] CenterSpbxeg4083-71-24 10:57:52 Test Item Value Reference Range Interpretation Comments POC-Sodium (test code = 142 meq/L 135-148 : TE STED AT [facility] 1542) [address] [place] [address], 770 30: Coil Assembler/Techni smiley ID = [id number] for RACELIS, SHELBY INE Lab Interpretation (test Normal code = 75208-0) [facility]-KRBLXD4841-87-34 10:57:52 Test Item Value Reference Range Interpretation Comments POC-SODIUM (BEAKER) 142 meq/L 135-148 : TESTED AT [facility] 6720 (test code = 1542) [facility] [place], [address]: Coil Assembler/Techni smiley ID = [id number] for SAMY DAVIS POC-Blood gases, nhloxava8202-98-38 10:57:51 Test Item Value Reference Range Interpretation [...] tomated message] code = 1838) The system [employer] generated this result transmit markie reference range : 80.0 - 90.0 mm Hg. The reference r elizabeth was not used to interpret this result as normal/abnormal . SO2, Arterial-POC (test 35.0 % 96.0-97.0 L code = 1839) HCO3, Arterilal-POC 32.6 meq/L 21.0-29.0 H (test code = 1840) BE, Arterial-POC (test 7.0 meq/L -2.0-3.0 H : LAISHA MARKIE AT [facility] code = 1841) [address] [place], [address]: Coil Assembler/Techni smiley ID = [id number] for SHELBY GONZALEZ DORENE Lab Interpretation Abnormal (test code = 66440-6) [facility]-Blood gases, pvmkdbzd6016-30-39 10:57:51 Test Item Value Reference Range Interpretation [...] tomated message] code = 1838) The system [employer] generated this result transmit markie reference range : 80.0 - 90.0 mm Hg. The reference r elizabeth was not used to interpret this result as normal/abnormal . SO2, Arterial-POC (test 35.0 % 96.0-97.0 L code = 1839) HCO3, Arterilal-POC 32.6 meq/L 21.0-29.0 H (test code = 1840) BE, Arterial-POC (test 7.0 meq/L -2.0-3.0 H : LAISHA MARKIE AT [facility] code = 1841) [address] [place], [address]: Coil Assembler/Techni smiley ID = [id number] for ISMAELSHELBY GUPTA Lab Interpretation Abnormal (test code = 28783-4) [facility]-Blood gases, wqdxipsc5074-58-36 10:57:51 Test Item Value Reference Range Interpretation [...] tomated message] code = 1838) The system [employer] generated this result transmit markie reference range : 80.0 - 90.0 mm Hg. The reference r elizabeth was not used to interpret this result as normal/abnormal . SO2, Arterial-POC (test 35.0 % 96.0-97.0 L code = 1839) HCO3, Arterilal-POC 32.6 meq/L 21.0-29.0 H (test code = 1840) BE, Arterial-POC (test 7.0 meq/L -2.0-3.0 H : LAISHA MARKIE AT [facility] code = 1841) [address] [facility], [address]: Coil Assembler/Techni smiley ID = [id number] for SHELBY GONZALEZ Lab Interpretation Abnormal (test code = 19468-3) [facility]-Blood gases, kkjhclsu2326-15-76 10:57:51 Test Item Value Reference Range Interpretation [...] tomated message] code = 1838) The system [employer] generated this result transmit markie reference range : 80.0 - 90.0 mm Hg. The reference r elizabeth was not used to interpret this result as normal/abnormal . SO2, Arterial-POC (test 35.0 % 96.0-97.0 L code = 1839) HCO3, Arterilal-POC 32.6 meq/L 21.0-29.0 H (test code = 1840) BE, Arterial-POC (test 7.0 meq/L -2.0-3.0 H : LAISHA MARKIE AT [facility] code = 1841) [address] [place], [address]: Coil Assembler/Techni smiley ID = [id number] for SHELBY GONZALEZ Lab Interpretation Abnormal (test code = 45298-6) [facility]-Blood gases, nopalaky4982-22-42 10:57:51 Test Item Value Reference Range Interpretation [...] tomated message] code = 1838) The system [employer] generated this result transmit markie reference range : 80.0 - 90.0 mm Hg. The reference r elizabeth was not used to interpret this result as normal/abnormal . SO2, Arterial-POC (test 35.0 % 96.0-97.0 L code = 1839) HCO3, Arterilal-POC 32.6 meq/L 21.0-29.0 H (test code = 1840) BE, Arterial-POC (test 7.0 meq/L -2.0-3.0 H : LAISHA MARKIE AT [facility] code = 1841) [address] [facility], [address]: Coil Assembler/Techni smiley ID = [id number] for SHELBY GONZALEZ Lab Interpretation Abnormal (test code = 24566-5) [facility]-Blood gases, kcvofanr4185-16-50 10:57:51 Test Item Value Reference Range Interpretation [...] tomated message] code = 1838) The system [employer] generated this result transmit markie reference range : 80.0 - 90.0 mm Hg. The reference r elizabeth was not used to interpret this result as normal/abnormal . SO2, Arterial-POC (test 35.0 % 96.0-97.0 L code = 1839) HCO3, Arterilal-POC 32.6 meq/L 21.0-29.0 H (test code = 1840) BE, Arterial-POC (test 7.0 meq/L -2.0-3.0 H : LAISHA MARKIE AT [facility] code = 1841) [address] [facility], [address]: Coil Assembler/Techni smiley ID = [id number] for RACELIS, SHELBY INE Lab Interpretation Abnormal (test code = 14425-1) [facility]-Blood gases, ikthhtxv6573-75-53 10:57:51 Test Item Value Reference Range Interpretation [...] tomated message] code = 1838) The system [employer] h generated this result transmit markie reference range : 80.0 - 90.0 mm Hg. The reference r elizabeth was not used to interpret this result as normal/abnormal . SO2, Arterial-POC (test 35.0 % 96.0-97.0 L code = 1839) HCO3, Arterilal-POC 32.6 meq/L 21.0-29.0 H (test code = 1840) BE, Arterial-POC (test 7.0 meq/L -2.0-3.0 H : LAISHA MARKIE AT [facility] code = 1841) [address] [place] [place], [address]: Coil Assembler/Techni smiley ID = [id number] for RACELIS, SHELBY INE Lab Interpretation Abnormal (test code = 51003-5) [facility]-BLOOD GASES, MTJLTEPM9064-41-90 10:57:51 Test Item Value Reference Range Interpretation [...] 7.0 meq/L -2.0-3.0 H : TESTED AT [facility] 6720 ARTERIAL-POC [facility], (BEAKER) (test code [address]: = 1841) Coil Assembler/Techni smiley ID = [id number] for SAMY DAVIS POCT-GLUCOSE [id number] 10:21:20 Test Item Value Reference Range Interpretation Comments POC-GLUCOSE METER 117 mg/dL 70-110 H : TESTED A T [facility] 6720 (BEAKER) (test code = [facility], 1538) [address]: Coil Assembler/Techni smiley ID = [id number] for MANDA ESPARZA CT brain without IV fluxfpyy2060-26-21 09:31:[address] BRAIN WITHOUT IV [...] normal limits. No obstructive paranasal sinus disease.[facility] [id number] 05:45:28 Test Item Value Reference Range Interpretation Comments POC-GLUCOSE METER 116 mg/dL 70-110 H : TESTED A T [facility] 6720 (BEAKER) (test code = [place], 1538) [address]: Coil Assembler/Techni smiley ID = [id number] for Teresa Rose BASIC METABOLIC [id number] 05:42:31 Test Item Value Reference Range Interpretation [...] not appl icable for dialysis patien ts Coil Assembler ID - ABGDJXWGOHVDVD7468-09-42 05:40:46 Test Item Value Reference Range Interpretation Comments MAGNESIUM (BEAKER) (test code = 2.9 mg/dL 1.6-2.6 H 627) Coil Assembler ID - RNVRXNTBMSVVDPV7481-75-80 05:40:46 Test Item Value Reference Range Interpretation Comments PHOSPHORUS (BEAKER) (test code = 6.5 mg/dL 2.3-4.7 H 604) Coil Assembler ID - ADMINCBC W/PLT COUNT & AUTO RFKAPOEQDHRN9450-24-44 05:38:35 Test Item Value Reference Range Interpretation [...] PERCENT (BEAKER) (test code = 2801) POCT-GLUCOSE [id number] 23:35:25 Test Item Value Reference Range Interpretation Comments POC-GLUCOSE METER 135 mg/dL 70-110 H : TESTED A T [facility] 6720 (BEAKER) (test code = [facility], 1538) [address]: Coil Assembler/Techni smiley ID = [id number] for Teresa Rose POCT-GLUCOSE [id number] 17:28:48 Test Item Value Reference Range Interpretation Comments POC-GLUCOSE METER 101 mg/dL 70-110 : TESTED A T [facility] 6720 (BEAKER) (test code = [facility], 1538) [address]: Coil Assembler/Techni smiley ID = [id number] for CIRA HUMPHREY BLOOD SYICRCH1142-29-07 17:00:30 Test Item Value Reference Range Interpretation Comments CULTURE (BEAKER) (test No growth in 5 days code = 1095) BLOOD [id number] 17:00:30 Test Item Value Reference Range Interpretation Comments CULTURE (BEAKER) (test No growth in 5 days code = 1095) XR ABDOMEN/KUB 1 VIEW [id number] 14:17:07 [facility] L : 1975 Sex: FXR ABDOMEN/KUB 1 VIEW PORTABLETECHNIQUE: Supine radiograph(s) of the abdomen and pelvis.HISTORY: corpak placementCOMPARISON: 12/04/2022IMPRESSION:Lines and tubes: Enteric tube is seen with tip in the stomachElectronically Signed By: Sarah Carrera11/05/2022 14:19 CDTWorkstation Name: [id number] 12:53:33 Test Item Value Reference Range Interpretation Comments POC-GLUCOSE METER 88 mg/dL 70-110 : TESTED A T [facility] 6720 (BEAKER) (test code = [facility], 1538) [address]10: Coil Assembler/Techni smiley ID = [id number] for CIRA ROLAND POCT-GLUCOSE [id number] 06:25:50 Test Item Value Reference Range Interpretation Comments POC-GLUCOSE METER 110 mg/dL 70-110 : TESTED A T [facility] 6720 (BEAKER) (test code = [employer] [facility], 1538) 76854: Coil Assembler/Techni smiley ID = [id number] for NADEGE IVEY BASIC METABOLIC [id number] 04:16:53 Test Item Value Reference Range Interpretation [...] not appl icable for dialysis patien ts Coil Assembler ID - DAMIÁN [id number] 04:16:53 Test Item Value Reference Range Interpretation Comments MAGNESIUM (BEAKER) (test code = 2.8 mg/dL 1.6-2.6 H 627) Coil Assembler ID Gisele STEEL [id number] 04:16:53 Test Item Value Reference Range Interpretation Comments PHOSPHORUS (BEAKER) (test code = 5.7 mg/dL 2.3-4.7 H 604) Coil Assembler ID Gisele STEEL WCBC W/PLT COUNT & AUTO [id number] 03:44:05 Test Item Value Reference Range Interpretation [...] PERCENT (BEAKER) (test code = 2801) POCT-GLUCOSE [id number] 23:25:33 Test Item Value Reference Range Interpretation Comments POC-GLUCOSE METER 114 mg/dL 70-110 H : TESTED A T [facility] 6720 (BEAKER) (test code = [facility], 153) 52119: Coil Assembler/Techni smiley ID = [id number] for JODI NEGRETE NADEGE [id number] 18:58:11 Test Item Value Reference Range Interpretation Comments SODIUM (BEAKER) (test code = 381) 142 meq/L 136-145 Coil Assembler ID - JSPOCT-GLUCOSE [id number] 17:04:52 Test Item Value Reference Range Interpretation Comments POC-GLUCOSE METER 142 mg/dL 70-110 H : TESTED A T [facility] 6720 (BEAKER) (test code = [facility], 153) 13157: Coil Assembler/Techni smiley ID = [id number] for MANDA ESPARZA POCT-GLUCOSE [id number] 12:43:34 Test Item Value Reference Range Interpretation Comments POC-GLUCOSE METER 127 mg/dL 70-110 H : TESTED A T [facility] 6720 (BEAKER) (test code = [facility], 1538) 57235: Coil Assembler/Techni smiley ID = [id number] for MANDA ESPARZA [id number] 12:42:31 Test Item Value Reference Range Interpretation Comments SODIUM (BEAKER) (test code = 381) 141 meq/L 136-145 Coil Assembler ID - JSPOCT-GLUCOSE [id number] 05:53:11 Test Item Value Reference Range Interpretation Comments POC-GLUCOSE METER 122 mg/dL 70-110 H : TESTED A T [facility] 6720 (BEAKER) (test code = [facility], 1538) 62201: Coil Assembler/Techni smiley ID = [id number] for NADEGE IVEY [id number] 04:57:58 Test Item Value Reference Range Interpretation Comments PHOSPHORUS (BEAKER) 6.1 mg/dL 2.3-4.7 H Specimen slightly (test code = 604) hemolyzed Coil Assembler ID - DAMIÁN WBASIC METABOLIC [id number] 04:57:58 Test Item Value Reference Range Interpretation [...] not appl icable for dialysis patien ts Coil Assembler ID - DAMIÁN [id number] 04:57:57 Test Item Value Reference Range Interpretation Comments MAGNESIUM (BEAKER) 2.7 mg/dL 1.6-2.6 H Specimen slightly (test code = 627) hemolyzed Coil Assembler ID - DAMIÁN WCBC W/PLT COUNT & AUTO [id number] 04:36:11 Test Item Value Reference Range Interpretation [...] PERCENT (BEAKER) (test code = 2801) POCT-GLUCOSE [id number] 00:26:17 Test Item Value Reference Range Interpretation Comments POC-GLUCOSE METER 117 mg/dL 70-110 H : TESTED A T [facility] 6720 (BEAKER) (test code = [facility], 1538) 47743: Coil Assembler/Techni smiley ID = [id number] for NADEGE IVEY [id number] 19:29:04 Test Item Value Reference Range Interpretation Comments SODIUM (BEAKER) (test code = 381) 141 meq/L 136-145 Coil Assembler ID - ADMINPOCT-GLUCOSE [id number] 16:58:24 Test Item Value Reference Range Interpretation Comments POC-GLUCOSE METER 142 mg/dL 70-110 H : TESTED A T [facility] 6720 (BEAKER) (test code = [facility], 1538) 21138: Coil Assembler/Techni smiley ID = [id number] for MANDA ESPARZA XR ABDOMEN/KUB 1 VIEW [id number] 13:01:43 [facility] : 1975 Sex: FAbdomen , one viewHistory:Feeding tube placementComparison:10/30/2022Findings:Tip of the feeding tube is near the pylorus. Nonobstructive bowel gaspattern. Cholecystectomy clips within the right upper quadrant.Electronically Signed By: Kam Vigil MD11/03/2022 13:03 CDTWorkstation Name: [id number] 12:39:24 Test Item Value Reference Range Interpretation Comments SODIUM (BEAKER) (test code = 381) 142 meq/L 136-145 POCT-GLUCOSE [id number] 12:05:03 Test Item Value Reference Range Interpretation Comments POC-GLUCOSE METER 118 mg/dL 70-110 H : TESTED A T [facility] 6720 (BEAKER) (test code = [facility] [place], 1538) 90312: Coil Assembler/Techni smiley ID = [id number] for MANDA ESPARZA [id number] 06:17:11 Test Item Value Reference Range Interpretation Comments PHOSPHORUS (BEAKER) (test code = 4.1 mg/dL 2.3-4.7 604) Coil Assembler ID - DAMIÁN WBASIC METABOLIC [id number] 06:17:10 Test Item Value Reference Range Interpretation [...] not appl icable for dialysis patien ts Coil Assembler ID - DAMIÁN [id number] 06:17:10 Test Item Value Reference Range Interpretation Comments MAGNESIUM (BEAKER) (test code = 2.4 mg/dL 1.6-2.6 627) Coil Assembler ID - DAMIÁN WPOCT-GLUCOSE [id number] 05:50:21 Test Item Value Reference Range Interpretation Comments POC-GLUCOSE METER 121 mg/dL 70-110 H : [facility] (BEAKER) (test code = [facility], 1538) 51475: Coil Assembler/Techni smiley ID = [id number] for NADEGE IVEY CBC W/PLT COUNT & AUTO [id number] 05:25:22 Test Item Value Reference Range Interpretation [...] PERCENT (BEAKER) (test code = 2801) POCT-GLUCOSE [id number] 23:36:51 Test Item Value Reference Range Interpretation Comments POC-GLUCOSE METER 116 mg/dL 70-110 H : TESTED A T [facility] 6720 (BEAKER) (test code = [facility], 1538) 29992: Coil Assembler/Techni smiley ID = [id number] for NADEGE IVEY [id number] 18:30:49 Test Item Value Reference Range Interpretation Comments SODIUM (BEAKER) (test code = 381) 141 meq/L 136-145 Coil Assembler ID - ADMINPOCT-GLUCOSE [id number] 17:57:14 Test Item Value Reference Range Interpretation Comments POC-GLUCOSE METER 118 mg/dL 70-110 H : TESTED A T [facility] 6720 (BEAKER) (test code = [facility], 153) 81108: Coil Assembler/Techni smiley ID = [id number] for An Donna lucas MRSA [id number] 14:39:15 Test Item Value Reference Range Interpretation Comments Result (test code = 6463-4) No [id number] 14:39:15 Test Item Value Reference Range Interpretation Comments Result (test code = 6463-4) No [facility] [id number] 14:39:15 Test Item Value Reference Range Interpretation Comments Result (test code = 6463-4) No [facility] [id number] 14:39:15 Test Item Value Reference Range Interpretation Comments Result (test code = 6463-4) No [facility] [id number] 14:39:15 Test Item Value Reference Range Interpretation Comments Result (test code = 6463-4) No [facility] [id number] 14:39:15 Test Item Value Reference Range Interpretation Comments Result (test code = 6463-4) No MRSA isolated [facility] [id number] 14:39:15 Test Item Value Reference Range Interpretation Comments Result (test code = 6463-4) No [facility] [id number] 14:39:15 Test Item Value Reference Range Interpretation Comments CULTURE (BEAKER) (test code No MRSA isolated = 1095) [id number] 13:35:39 Test Item Value Reference Range Interpretation Comments SODIUM (BEAKER) (test code = 381) 139 meq/L 136-145 Coil Assembler ID - BVPOCT-GLUCOSE [id number] 13:06:41 Test Item Value Reference Range Interpretation Comments POC-GLUCOSE METER 134 mg/dL 70-110 H : TESTED A T [facility] 6720 (BEAKER) (test code = [facility], 1537) 37015: Coil Assembler/Techni smiley ID = [id number] for An Donna lucas CT BRAIN WITHOUT IV [id number] 13:00:59 [facility] : 1975 Sex: [...] Signed By: Alexandra Liang11/02/2022 13:03 CDTWorkstation Name: [id number] 06:29:29 Test Item Value Reference Range Interpretation Comments SODIUM (BEAKER) (test code = 381) 139 meq/L 136-145 BASIC METABOLIC [id number] 06:29:28 Test Item Value Reference Range Interpretation [...] not appl icable for dialysis patien ts Coil Assembler ID - [id number] 06:29:28 Test Item Value Reference Range Interpretation Comments MAGNESIUM (BEAKER) (test code = 2.2 mg/dL 1.6-2.6 627) Coil Assembler ID - [id number] 06:29:28 Test Item Value Reference Range Interpretation Comments PHOSPHORUS (BEAKER) (test code = 3.8 mg/dL 2.3-4.7 604) Coil Assembler ID - MARCOPOCT-GLUCOSE [id number] 06:21:55 Test Item Value Reference Range Interpretation Comments POC-GLUCOSE METER 125 mg/dL 70-110 H : [facility] (BEAKER) (test code = [facility], 1538) 06654: Coil Assembler/Techni smiley ID = [id number] for NADEGE IVEY CBC W/PLT COUNT & AUTO [id number] 06:08:00 Test Item Value Reference Range Interpretation [...] PERCENT (BEAKER) (test code = 2801) POCT-GLUCOSE [id number] 00:19:06 Test Item Value Reference Range Interpretation Comments POC-GLUCOSE METER 99 mg/dL 70-110 : TESTED A T [facility] 6720 (WESLEY) (test code = [facility], 1538) 02597: Coil Assembler/Techni smiley ID = [id number] for NADEGE MORALES [id number] 18:45:56 Test Item Value Reference Range Interpretation Comments SODIUM (WESLEY) (test code = 381) 140 meq/L 136-145 Coil Assembler ID - ADMPOCT-GLUCOSE [id number] 18:39:21 Test Item Value Reference Range Interpretation Comments POC-GLUCOSE METER 121 mg/dL 70-110 H : TESTED A T [facility] 6720 (WESLEY) ([facility], = 1538) 36191: Coil Assembler/Techni smiley ID = [id number] for Latonia Connolly 2D Echo W/Doppler(CW/PW/Color)2022-11-01 17:30:35Transthoracic Echocardiography Report (TTE) Demographics Patient Name IVÁN Cabello Date of Study 11/01/2022 Gender Female Visit Number [id number] Race Unknown RoomNumber 7516 Number Date of 1975 Referring Physician Katelyn Chavez 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 Peak: Tissue Doppler E' Septal Velocity: [...] Peak Velocity: 1.32 m/s Peak Gradient: 7.01 mmHgSierra Nevada Memorial HospitalODIUM2023-08-17 14:24:36 Test Item Value Reference Range Interpretation Comments SODIUM (BEAKER) (test code = 381) 140 meq/L 136-145 Coil Assembler ID - [id number] 10:06:02 Test Item Value Reference Range Interpretation Comments POTASSIUM (BEAKER) (test code = 3.8 meq/L 3.5-5.1 379) Coil Assembler ID - [id number] 10:06:01 Test Item Value Reference Range Interpretation Comments MAGNESIUM (BEAKER) (test code = 2.3 mg/dL 1.6-2.6 627) Coil Assembler ID - ADMVANCOMYCIN LEVEL, [id number] 09:59:39 Test Item Value Reference Range Interpretation Comments VANCOMYCIN TROUGH (BEAKER) (test 8.4 ug/mL 10.0-20.0 L code = 522) Coil Assembler ID - [id number] 04:21:26 Test Item Value Reference Range Interpretation Comments MAGNESIUM (BEAKER) (test code = 2.0 mg/dL 1.6-2.6 627) Coil Assembler ID - [id number] 04:21:26 Test Item Value Reference Range Interpretation Comments PHOSPHORUS (BEAKER) (test code = 3.2 mg/dL 2.3-4.7 604) Coil Assembler ID - ADMINBASIC METABOLIC [id number] 04:21:25 Test Item Value Reference Range Interpretation [...] not appl icable for dialysis patien ts Coil Assembler ID - ADMINCBC W/PLT COUNT & AUTO [id number] 03:36:42 Test Item Value Reference Range Interpretation [...] 0.00-1.00 PERCENT (BEAKER) (test code = 2801) [id number] 00:11:29 Test Item Value Reference Range Interpretation Comments SODIUM (BEAKER) (test code = 381) 139 meq/L 136-145 Coil Assembler ID - [id number] 18:25:44 Test Item Value Reference Range Interpretation Comments SODIUM (BEAKER) (test code = 381) 139 meq/L 136-145 Coil Assembler ID - esauSARS-CoV2/Influenza/RSV RT-PCR (Symptomatic ONLY)2022-10-31 14:03:24 Test Item Value Reference Interpretation Comments Range SARS-COV2/RT-PCR Negative Negative The SARS-Co V-2 (test code = target nucleic 94387-4) acids are not detected in [facility] s specimen. Negat yesika results do not [...] (test code = [place] re 79354-5) not detected in this specimen. Influenza B RT-PCR Negative Negative The Flu B target (test code = [place] acids a re 18801-2) not detected in this specimen. RSV by RT-PCR (test Negative Negative The RSV target code = 21154-8) nucleic acid s are not detected in [...] the Act. Fact Sheet for Healthcare Providers:https://w [employer]/Docu ments/Xpert%20Xpres s%20SARS%20CoV-2/Fa ct%20Sheets/302-390 2%52OYKE-RYZ-3%20HE ALTHCARE%20PROVIDER S%20FACT%20SHEET.pd f Fact Sheet for Healthcare Patients:https://linda [employer]/Docum ents/Xpert%20Xpress %20SARS%20Cov-2/Fac t%20Sheets/302-3801 %78RWVY-EUY-3%20PAT IENT%20FACT%20SHEET .pdf Lab Interpretation Normal (test code = 46404-6) [facility]ARS-CoV[facility]/Influenza/RSV RT-PCR (Symptomatic ONLY) 2022-10-31 14:03:24 Test Item Value Reference Interpretation Comments Range SARS-COV2/RT-PCR Negative Negative The SARS-Co V-2 (test code = target nucleic 05897-0) acids are not detected in thi s [...] (test code = [place] 70573-2) not detected in this specimen. Influenza B RT-PCR Negative Negative The Flu B target (test code = [place] re 73455-3) not detected in this specimen. RSV by RT-PCR (test Negative Negative The RSV target code = 04060-5) nucleic acid s are not detected in [...] SARS-CoV-2/Flu/RSV by their healthcare provider. Results from [facility] Xpert Xpress SARS-CoV-2/Flu/RSV test should be correlated [...] the Act. Fact Sheet for Healthcare Providers:https://w [employer]/Docu ments/Xpert%20Xpres s%20SARS%20CoV-2/Fa ct%20Sheets/302-390 2%13RIIS-FRK-9%20HE ALTHCARE%20PROVIDER S%20FACT%20SHEET.pd f Fact Sheet for Healthcare Patients:https://[employer]/Docum ents/Xpert%20Xpress %20SARS%20Cov-2/Fac t%20Sheets/302-3801 %49ZUBO-WAT-6%20PAT IENT%20FACT%20SHEET .pdf Lab Interpretation Normal (test code = 79242-8) [facility]/Influenza/RSV RT-PCR (Symptomatic ONLY) 2022-10-31 14:03:24 Test Item Value Reference Interpretation Comments Range SARS-COV2/RT-PCR Negative Negative The SARS-Co V-2 (test code = target nucleic 31699-1) acids are not detected in thi s [...] (test code = [place] re 61883-2) not detected in this specimen. Influenza B RT-PCR Negative Negative The Flu B target (test code = nucleic acids [place] re 54296-4) not detected in this specimen. RSV by RT-PCR (test Negative Negative The RSV target code = 31701-1) nucleic acid s are not detected in [...] SARS-CoV-2/Flu/RSV by their healthcare provider. Results from [facility] Xpert Xpress SARS-CoV-2/Flu/RSV test should be correlated [...] the Act. Fact Sheet for Healthcare Providers:https://w [employer]/Docu ments/Xpert%20Xpres s%20SARS%20CoV-2/Fa ct%20Sheets/302-390 2%91EFSV-RRM-9%20HE ALTHCARE%20PROVIDER S%20FACT%20SHEET.pd f Fact Sheet for Healthcare Patients:https://ww [employer]/Docum ents/Xpert%20Xpress %20SARS%20Cov-2/Fac t%20Sheets/302-3801 %32ACBW-EZL-5%20PAT IENT%20FACT%20SHEET .pdf Lab Interpretation Normal (test code = 03144-5) [facility]fluenza/RSV RT-PCR (Symptomatic ONLY) 2022-10-31 14:03:24 Test Item Value Reference Interpretation Comments Range SARS-COV2/RT-PCR Negative Negative The SARS-Co V-2 (test code = target nucleic 77985-7) acids are not detected in thi s [...] (test code = [place] 87467-2) not detected in this specimen. Influenza B RT-PCR Negative Negative The Flu B target (test code = nucleic acids a re 32314-8) not detected in this specimen. RSV by RT-PCR (test Negative Negative The RSV target code = 88077-1) nucleic acid s are not detected in [...] SARS-CoV-2/Flu/RSV by their healthcare provider. Results from [facility] Xpert Xpress SARS-CoV-2/Flu/RSV test should be correlated [...] the Act. Fact Sheet for Healthcare Providers:https://w [employer]/Docu ments/Xpert%20Xpres s%20SARS%20CoV-2/Fa ct%20Sheets/302-390 2%00CYNZ-QIV-6%20HE ALTHCARE%20PROVIDER S%20FACT%20SHEET.pd f Fact Sheet for Healthcare Patients:https://linda [employer]/Docum ents/Xpert%20Xpress %20SARS%20Cov-2/Fac t%20Sheets/302-3801 %12XVAQ-WQF-0%20PAT IENT%20FACT%20SHEET .pdf Lab Interpretation Normal (test code = 38891-1) [facility]flu[facility]/RSV RT-PCR (Symptomatic ONLY) 2022-10-31 14:03:24 Test Item Value Reference Interpretation Comments Range SARS-COV2/RT-PCR Negative Negative The SARS-Co V-2 (test code = target nucleic 50367-4) acids are not detected in thi s [...] (test code = [place] 89785-1) not detected in this specimen. Influenza B RT-PCR Negative Negative The Flu B target (test code = nucleic [place] re 72480-8) not detected in this specimen. RSV by RT-PCR (test Negative Negative The RSV target code = 49987-0) nucleic acid s are not detected in [...] SARS-CoV-2/Flu/RSV by their healthcare provider. Results from [facility] Xpert Xpress SARS-CoV-2/Flu/RSV test should be correlated [...] the Act. Fact Sheet for Healthcare Providers:https://w [employer]/Docu ments/Xpert%20Xpres s%20SARS%20CoV-2/Fa ct%20Sheets/302-390 2%56QTDN-LSA-4%20HE ALTHCARE%20PROVIDER S%20FACT%20SHEET.pd f Fact Sheet for Healthcare Patients:https://[employer]/Docum ents/Xpert%20Xpress %20SARS%20Cov-2/Fac t%20Sheets/302-3801 %32ZFRK-XWH-6%20PAT IENT%20FACT%20SHEET .pdf Lab Interpretation Normal (test code = 13173-5) [facility]/RSV RT-PCR (Symptomatic ONLY) 2022-10-31 14:03:24 Test Item Value Reference Interpretation Comments Range SARS-COV2/RT-PCR Negative Negative The SARS-Co V-2 (test code = target nucleic 11416-3) acids are not detected in thi s [...] (test code = [place] 75077-4) not detected in this specimen. Influenza B RT-PCR Negative Negative The Flu B target (test code = [place] re 11797-2) not detected in this specimen. RSV by RT-PCR (test Negative Negative The RSV target code = 92995-3) nucleic acid s are not detected in [...] SARS-CoV-2/Flu/RSV by their healthcare provider. Results from [facility] Xpert Xpress SARS-CoV-2/Flu/RSV test should be correlated [...] the Act. Fact Sheet for Healthcare Providers:https://w [employer]/Docu ments/Xpert%20Xpres s%20SARS%20CoV-2/Fa ct%20Sheets/302-390 2%81EOIJ-ZZD-1%20HE ALTHCARE%20PROVIDER S%20FACT%20SHEET.pd f Fact Sheet for Healthcare Patients:https://ww [employer]/Docum ents/Xpert%20Xpress %20SARS%20Cov-2/Fac t%20Sheets/302-3801 %61GQPI-RGX-1%20PAT IENT%20FACT%20SHEET .pdf Lab Interpretation Normal (test code = 55014-9) [facility]V RT-PCR (Symptomatic ONLY) 2022-10-31 14:03:24 Test Item Value Reference Interpretation Comments Range SARS-COV2/RT-PCR Negative Negative The SARS-Co V-2 (test code = target nucleic 13929-6) acids are not detected in thi s [...] (test code = [place] re 49768-8) not detected in this specimen. Influenza B RT-PCR Negative Negative The Flu B target (test code = nucleic [place] re 84008-1) not detected in this specimen. RSV by RT-PCR (test Negative Negative The RSV target code = 32469-5) nucleic acid s are not detected in [...] the Act. Fact Sheet for Healthcare Providers:https://w [employer]/Docu ments/Xpert%20Xpres s%20SARS%20CoV-2/Fa ct%20Sheets/302-390 2%50BEOX-ZXI-8%20HE ALTHCARE%20PROVIDER S%20FACT%20SHEET.pd f Fact Sheet for Healthcare Patients:https://linda [employer]/Docum ents/Xpert%20Xpress %20SARS%20Cov-2/Fac t%20Sheets/302-3801 %35IHVT-EAK-2%20PAT IENT%20FACT%20SHEET .pdf Lab Interpretation Normal (test code = 79341-3) [facility]/INFLUENZA/RSV [id number] 14:03:24 Test Item Value Reference Range Interpretation Comments SARS-COV2/RT-PCR Negative Negative The SARS-Co V-2 target (test code = nucleic acids a re not 2208801) detected in thi s specimen. Negat yesika [...] individuals amanda pected of COVID-19 by the [facility]. INFLUENZA A RT-PCR Negative Negative The Flu A target nucleic (test code = acids are not d etected in 7325827) this specimen. INFLUENZA B RT-PCR Negative Negative The Flu B target nucleic (test code = acids are not d etected in 9625807) this specimen. RSV RT-PCR (test Negative Negative The RSV tar get nucleic code = 7513394) acids are no t detected in this [...] Xpress SARS-CoV-2/Flu/RSV by their healthcareprovider. Results from [facility] Xpert Xpress SARS-CoV-2/Flu/RSV test should be correlated [...] of the Act.Fact Sheet for Healthcare Providers:https ://www.[employer]/Documents/Xpert%20Xpress%20SARS%20CoV-2/Fact%20Sheets/302-390 2%71EDTW-ZVP-8%20HEALTHCARE%20PROVIDERS%20FACT%20SHEET.pdfFact Sheet for Healthcare Patients:https://www.[employer]/Docum ents/Xpert%20Xpress%20SARS%20Cov-2/Fact%20Sheets/302-3801%92LWDV-DXH-5%20PATIENT %20FACT%20SHEET.ynqFLAQZA5066-24-73 12:52:25 Test Item Value Reference Range Interpretation Comments SODIUM (BEAKER) (test code = 381) 135 meq/L 136-145 L Coil Assembler ID - tnzaAFFLYTLSN7746-57-81 12:52:24 Test Item Value Reference Range Interpretation Comments MAGNESIUM (BEAKER) (test code = 2.4 mg/dL 1.6-2.6 627) Coil Assembler ID - esauPOCT-GLUCOSE [id number] 12:00:51 Test Item Value Reference Range Interpretation Comments POC-GLUCOSE METER 130 mg/dL 70-110 H : TESTED A T [facility] 6720 (BEAKER) (test code [facility], = 1538) 29962: Coil Assembler/Techni smiley ID = [id number] for Latonia Connolly B-TYPE NATRIURETIC FACTOR (BNP)2022-10-31 10:43:21 Test Item Value Reference Range Interpretation Comments B-TYPE NATRIURETIC PEPTIDE (NERISAKER) 568 pg/mL 0-100 H (test code = 700) Coil Assembler ID - esauVenous doppler legs cmxsnsgue4146-07-09 08:29:42PV LAB - Lower Extremities DVT Study Demographics Patient Name IVÁN INIGUEZ Date of Study 10/31/2022 Irineo Age 47 Visit Number [id number] Gender Female Accession Number [id number] Date of 1975 Referring Kathy Zepeda MD Room Number 6016 Physician Real Estate Job Titles Wayne Zavala [facility] Interpreting Bia Herbert MD Physician [...] in cm/s ; Di[facility] emawmuhpg7409-05-34 08:29:21PV LAB - Upper Extremities Veins Demographics Patient Name IVÁN INIGUEZ Date of Study 10/31/2022L Age 47 Visit Number [id number] Gender Female Accession Number [id number] Date of Birth1975 Referring Kathy Zepeda MD Room Number 7516 Physician Real Estate Job Titles Wayne Zavala [facility] Interpreting Bia Herbert MD Physician [...] in cm/s ; Diameters are measured in [facility] [id number] 05:07:29 Test Item Value Reference Range Interpretation Comments MAGNESIUM (BEAKER) (test code = 1.9 mg/dL 1.6-2.6 627) Coil Assembler ID - [id number] 05:07:29 Test Item Value Reference Range Interpretation Comments PHOSPHORUS (BEAKER) (test code = 3.7 mg/dL 2.3-4.7 604) Coil Assembler ID - ADMINBASIC METABOLIC [id number] 05:07:28 Test Item Value Reference Range Interpretation [...] not appl icable for dialysis patien ts Coil Assembler ID - ADMINCBC W/PLT COUNT & AUTO [id number] 04:47:13 Test Item Value Reference Range Interpretation [...] 417) IMMATURE GRANULOCYTES-RELATIVE 0.40 % 0.00-1.00 PERCENT (WESLEY) (test code = 2801) [id number] 23:06:40 Test Item Value Reference Range Interpretation Comments SODIUM (WESLEY) (test code = 381) 133 meq/L 136-145 L Coil Assembler ID - ADMINHIGH SENSITIVITY TROPONIN [id number] 22:59:43 Test Item Value Reference Range Interpretation Comments HIGH SENSITIVITY 92 pg/ml See_Comment H [Automated message] TROPONIN I (test code = The system which 6972112) generated this result transmitted ref erence range: <=17. Th e reference range was not used to int erpret this result as normal/abnormal . Coil Assembler ID - ADMINThe [facility] MAGISTRATE STAT High Sensitivity Troponin-I results should be used in conjunction with other diagnostic information such as ECG, clinical observations and information, and patientsymptoms to aid in the diagnosis of PR. XR ABDOMEN/KUB 1 VIEW [id number] 18:54:45 [facility]o : 1975 Sex: FTECHNIQUE: XR ABDOMEN/KUB 1 VIEW PORTABLEINDICATION: corpak placement.COMPARISON: 10/29/2022FINDINGS:Feeding tube tip projecting over the body of the stomach. No specificevidence for bowel obstruction. Cholecystectomy clips are noted. Supineradiographs are insensitive for detection of free intraperitoneal ai r.IMPRESSION:Feeding tube tip projects over the body of the stomach.Electronically Signed By: Mo Soares10/30/2022 18:56 CDTWorkstation Name: [id number] SENSITIVITY TROPONIN [id number] 17:30:01 Test Item Value Reference Range Interpretation Comments HIGH SENSITIVITY 123 pg/ml See_Comment H [Automated message] TROPONIN I (test code The sy stem which = [id number]) generated this result transmitted ref erence range: <=17. Th e reference range was not used to int erpret this result as normal/abnormal . Coil Assembler ID - BSThe [facility] MAGISTRATE STAT High Sensitivity Troponin-I results should be used in conjunctionwith other diagnostic information such as ECG, clinical observations and information, and patient symptoms to aid in the diagnosis of PR.Lactic Acid, [id number] 17:25:59 Test Item Value Reference Range Interpretation Comments Lactate, Art (test code = 1.0 mmol/L 0.5-2.0 2874) SUE (test code = SUE) Coil Assembler ID - ADMIN Lab Interpretation (test Normal code = 43669-5) [facility] CenterL[facility], [id number] 17:25:59 Test Item Value Reference Range Interpretation Comments Lactate, Art (test code = 1.0 mmol/L 0.5-2.0 2874) SUE (test code = SUE) Coil Assembler ID - ADMIN Lab Interpretation (test Normal code = 92855-4) [facility] CenterL[facility], [id number] 17:25:59 Test Item Value Reference Range Interpretation Comments Lactate, Art (test code = 1.0 mmol/L 0.5-2.0 2874) SUE (test code = SUE) Coil Assembler ID - ADMIN Lab Interpretation (test Normal code = 95041-6) [facility] CenterL[facility], [id number] 17:25:59 Test Item Value Reference Range Interpretation Comments Lactate, Art (test code = 1.0 mmol/L 0.5-2.0 2874) SUE (test code = SUE) Coil Assembler ID - ADMIN Lab Interpretation (test Normal code = 46706-8) [facility] CenterLactic Acid, [id number] 17:25:59 Test Item Value Reference Range Interpretation Comments Lactate, Art (test code = 1.0 mmol/L 0.5-2.0 2874) SUE (test code = SUE) Coil Assembler ID - ADMIN Lab Interpretation (test Normal code = 27452-8) [facility] CenterL[facility] Acid, [id number] 17:25:59 Test Item Value Reference Range Interpretation Comments Lactate, Art (test code = 1.0 mmol/L 0.5-2.0 2874) SUE (test code = SUE) Coil Assembler ID - ADMIN Lab Interpretation (test Normal code = 28943-2) [facility] CenterL[facility], [id number] 17:25:59 Test Item Value Reference Range Interpretation Comments Lactate, Art (test code = 1.0 mmol/L 0.5-2.0 2874) SUE (test code = SUE) Coil Assembler ID - ADMIN Lab Interpretation (test Normal code = 90759-8) [facility] CenterLACTIC ACID, [id number] 17:25:59 Test Item Value Reference Range Interpretation Comments LACTATE BLOOD ARTERIAL (2) 1.0 mmol/L 0.5-2.0 (BEAKER) (test code = 2874) Coil Assembler ID - [id number] 17:21:36 Test Item Value Reference Range Interpretation Comments SODIUM (BEAKER) (test code = 381) 136 meq/L 136-145 Coil Assembler ID - ADMINBLOOD GAS, [id number] 14:46:08 Test Item Value Reference Range Interpretation [...] FIO2 (BEAKER) (test code = 1819) 100.0 [id number] 12:47:53 Test Item Value Reference Range Interpretation Comments SODIUM (BEAKER) (test code = 381) 137 meq/L 136-145 Coil Assembler ID - JSLACTIC ACID, [id number] 12:47:37 Test Item Value Reference Range Interpretation Comments LACTATE BLOOD 2.3 mmol/L 0.5-2.0 H Specimen sligh tly ARTERIAL (2) (BEAKER) hemoly zed (test code = 2874) Coil Assembler ID - JSBLOOD GAS, [id number] 12:23:19 Test Item Value Reference Range Interpretation [...] FIO2 (BEAKER) (test code = 1819) 100.0 [id number] 11:15:25 Test Item Value Reference Range Interpretation Comments PROCALCITONIN (BEAKER) (test code 0.05 ng/mL <0.05 H = 3036) SEPSIS RISK (ng/mL)Low: 0.05-0.50Intermediate: 0.51-2.00High: >=2.01HIGH SENSITIVITY TROPONIN [id number] 11:10:59 Test Item Value Reference Range Interpretation Comments HIGH SENSITIVITY 139 pg/ml See_Comment H [Automated message] TROPONIN I (test code The sy stem which = [id number]) generated this result transmitted ref erence range: <=17. Th e reference range was not used to int erpret this result as normal/abnormal . Coil Assembler ID - JSThe [facility] MAGISTRATE STAT High Sensitivity Troponin-I results should be used in conjunctionwith other diagnostic information such as ECG, clinical observations and information, and patient symptoms to aid in the diagnosis of PR.XR CHEST 1 VIEW PORTABLE / [id number] 10:47:01 [facility]B: 1975 Sex: FCLINICAL HISTORY: desaturationTECHNIQUE: 1 view of the chest.COMPARISON: 10/29/2022IMPRESSION:ETT no longer seen. New feeding tube below the diaphragm. Right centralline remains in the right atrium. There are mildly increased bilaterallower lung airspace opacities with blunting of both costophrenic angles.The cardiomediastinal silhouette is magnified by technique.Electronically Signed By: Yeyo Mills10/30/2022 10:49 CDTWorkstation Name: [id number] BRAIN WITHOUT IV [id number] 09:21:03 [facility] : 1975 [...] Signed By: Luís Mclain10/30/2022 09:23 CDTWorkstation Name: [id number] 04:21:01 Test Item Value Reference Range Interpretation Comments PHOSPHORUS (BEAKER) (test code = 3.2 mg/dL 2.3-4.7 604) Coil Assembler ID - EMBASIC METABOLIC [id number] 04:21:00 Test Item Value Reference Range Interpretation [...] not appl icable for dialysis patien ts Coil Assembler ID - [id number] 04:21:00 Test Item Value Reference Range Interpretation Comments MAGNESIUM (BEAKER) (test code = 1.7 mg/dL 1.6-2.6 627) Coil Assembler ID - EMCBC W/PLT COUNT & AUTO [id number] 03:30:03 Test Item Value Reference Range Interpretation [...] 0.00-1.00 PERCENT (BEAKER) (test code = 2801) [id number] 00:34:48 Test Item Value Reference Range Interpretation Comments SODIUM (BEAKER) (test code = 381) 137 meq/L 136-145 Coil Assembler ID - ADMINXR ABDOMEN/KUB 1 VIEW [id number] 18:55:43 [facility] : 1975 Sex: [...] Signed By: Mo Soares10/29/2022 18:57 CDTWorkstation Name: [id number] 2022-10-29 18:31:20 Test Item Value Reference Range Interpretation Comments SODIUM (BEAKER) (test code = 381) 138 meq/L 136-145 Coil Assembler ID - ADMINCreatinine, random [id number] 15:21:04 Test Item Value Reference Range Interpretation Comments Creatinine, Ur 24.5 mg/dL (test code = 2161-8) SUE (test code = Reference Range: No SUE) NormalsOperator ID - ADMIN [facility] CenterCreatinine, random [id number] 15:21:04 Test Item Value Reference Range Interpretation Comments Creatinine, Ur 24.5 mg/dL (test code = 2161-8) SUE (test code = Reference Range: No SUE) NormalsOperator ID - ADMIN [facility] CenterCreatinine, random [id number] 15:21:04 Test Item Value Reference Range Interpretation Comments Creatinine, Ur 24.5 mg/dL (test code = 2161-8) SUE (test code = Reference Range: No SUE) NormalsOperator ID - ADMIN [facility] CenterCreatinine, random [id number] 15:21:04 Test Item Value Reference Range Interpretation Comments Creatinine, Ur 24.5 mg/dL (test code = 2161-8) SUE (test code = Reference Range: No SUE) NormalsOperator ID - ADMIN [facility] CenterCreatinine, random [id number] 15:21:04 Test Item Value Reference Range Interpretation Comments Creatinine, Ur 24.5 mg/dL (test code = 2161-8) SUE (test code = Reference Range: No SUE) NormalsOperator ID - ADMIN [facility] CenterCreatinine, random [id number] 15:21:04 Test Item Value Reference Range Interpretation Comments Creatinine, Ur 24.5 mg/dL (test code = 2161-8) SUE (test code = Reference Range: No SUE) NormalsOperator ID - ADMIN [facility] CenterCreatinine, random [id number] 15:21:04 Test Item Value Reference Range Interpretation Comments Creatinine, Ur 24.5 mg/dL (test code = 2161-8) SUE (test code = Reference Range: No SUE) NormalsOperator ID - ADMIN [facility] CenterCREATININE, RANDOM [id number] 15:21:04 Test Item Value Reference Range Interpretation Comments CREATININE URINE (BEAKER) (test 24.5 mg/dL code = 375) Reference Range: No NormalsOperator ID - ADMINRapid drug screen, [id number] 14:06:15 Test Item Value Reference Range Interpretation Comments Barbiturate Screen Negative Negative (test code = 58629-0) Benzodiazepine Screen Negative Negative (test code = 92679-2) Cocaine (Metab.) Negative Negative Screen (test code = 3397-7) Methadone Screen (test Negative Negative code = 67490-4) Opiate Screen (test Negative Negative code = 12175-7) Cannabinoid Screen Negative Negative (test code = 80247-9) Amph/Methamph Screen Positive Negative A (test code = 60241-5) Phencyclidine Screen Negative Negative (test code = 89739-4) pH, UA (test code = 6.0 5.0-8.0 5803-2) SUE (test code = SUE) DRUG CUTOFF CONC.Cocaine 300 ng/mL Cannabinoid 50 ng/mLBenzodiazepine 200 ng/mLBarbiturate 200 ng/mLPhencyclidine 25 ng/mLOpiate 300 ng/mLMethadone 300 ng/mLAmphetamine/ 1000 ng/mL Methamphetamine This assay provides an unconfirmed qualitative test result for the clinical management of patients in emergency situations. Chain of custody not maintained. Some qkhi-wdj-pvtsdol medications, as well as adulterants, may cause inaccurate results. Clinical correlation should be applied. A more comprehensive drug screen or confirmation of a detected drug may be performed upon request.Coil Assembler ID - JSOperator ID - [auto] Lab Interpretation Abnormal (test code = 66007-6) [facility] CenterRapid drug screen, [id number] 14:06:15 Test Item Value Reference Range Interpretation Comments Barbiturate Screen Negative Negative (test code = 53083-1) Benzodiazepine Screen Negative Negative (test code = 93218-3) Cocaine (Metab.) Negative Negative Screen (test code = 3397-7) Methadone Screen (test Negative Negative code = 87926-7) Opiate Screen (test Negative Negative code = 75602-7) Cannabinoid Screen Negative Negative (test code = 43808-9) Amph/Methamph Screen Positive Negative A (test code = 93323-1) Phencyclidine Screen Negative Negative (test code = 15201-2) pH, UA (test code = 6.0 5.0-8.0 5803-2) SUE (test code = SUE) DRUG CUTOFF CONC.Cocaine 300 ng/mL Cannabinoid 50 ng/mLBenzodiazepine 200 ng/mLBarbiturate 200 ng/mLPhencyclidine 25 ng/mLOpiate 300 ng/mLMethadone 300 ng/mLAmphetamine/ 1000 ng/mL Methamphetamine This assay provides an unconfirmed qualitative test result for the clinical management of patients in emergency situations. Chain of custody not maintained. Some gwpk-llx-rqfzwqa medications, as well as adulterants, may cause inaccurate results. Clinical correlation should be applied. A more comprehensive drug screen or confirmation of a detected drug may be performed upon request.Coil Assembler ID - JSOperator ID - [auto] Lab Interpretation Abnormal (test code = 84099-0) [facility] CenterRapid [facility] screen, [id number] 14:06:15 Test Item Value Reference Range Interpretation Comments Barbiturate Screen Negative Negative (test code = 92630-3) Benzodiazepine Screen Negative Negative (test code = 05764-2) Cocaine (Metab.) Negative Negative Screen (test code = 3397-7) Methadone Screen (test Negative Negative code = 89525-3) Opiate Screen (test Negative Negative code = 15239-9) Cannabinoid Screen Negative Negative (test code = 82185-8) Amph/Methamph Screen Positive Negative A (test code = 19046-9) Phencyclidine Screen Negative Negative (test code = 44442-6) pH, UA (test code = 6.0 5.0-8.0 5803-2) SUE (test code = SUE) DRUG CUTOFF CONC.Cocaine 300 ng/mL Cannabinoid 50 ng/mLBenzodiazepine 200 ng/mLBarbiturate 200 ng/mLPhencyclidine 25 ng/mLOpiate 300 ng/mLMethadone 300 ng/mLAmphetamine/ 1000 ng/mL Methamphetamine This assay provides an unconfirmed qualitative test result for the clinical management of patients in emergency situations. Chain of custody not maintained. Some kujc-stc-bsazjcs medications, as well as adulterants, may cause inaccurate results. Clinical correlation should be applied. A more comprehensive drug screen or confirmation of a detected drug may be performed upon request.Coil Assembler ID - JSOperator ID - [auto] Lab Interpretation Abnormal (test code = 05509-5) [facility] CenterRapi drug screen, [id number] 14:06:15 Test Item Value Reference Range Interpretation Comments Barbiturate Screen Negative Negative (test code = 58442-5) Benzodiazepine Screen Negative Negative (test code = 03528-7) Cocaine (Metab.) Negative Negative Screen (test code = 3397-7) Methadone Screen (test Negative Negative code = 14445-3) Opiate Screen (test Negative Negative code = 88505-8) Cannabinoid Screen Negative Negative (test code = 50617-4) Amph/Methamph Screen Positive Negative A (test code = 45595-7) Phencyclidine Screen Negative Negative (test code = 30657-2) pH, UA (test code = 6.0 5.0-8.0 5803-2) SUE (test code = SUE) DRUG CUTOFF CONC.Cocaine 300 ng/mL Cannabinoid 50 ng/mLBenzodiazepine 200 ng/mLBarbiturate 200 ng/mLPhencyclidine 25 ng/mLOpiate 300 ng/mLMethadone 300 ng/mLAmphetamine/ 1000 ng/mL Methamphetamine This assay provides an unconfirmed qualitative test result for the clinical management of patients in emergency situations. Chain of custody not maintained. Some cwdj-ney-lmkubkp medications, as well as adulterants, may cause inaccurate results. Clinical correlation should be applied. A more comprehensive drug screen or confirmation of a detected drug may be performed upon request.Coil Assembler ID - JSOperator ID - [auto] Lab Interpretation Abnormal (test code = 78621-6) [facility] drug screen, [id number] 14:06:15 Test Item Value Reference Range Interpretation Comments Barbiturate Screen Negative Negative (test code = 83696-3) Benzodiazepine Screen Negative Negative (test code = 50783-2) Cocaine (Metab.) Negative Negative Screen (test code = 3397-7) Methadone Screen (test Negative Negative code = 58561-6) Opiate Screen (test Negative Negative code = 98641-1) Cannabinoid Screen Negative Negative (test code = 92721-5) Amph/Methamph Screen Positive Negative A (test code = 05667-8) Phencyclidine Screen Negative Negative (test code = 44637-1) pH, UA (test code = 6.0 5.0-8.0 5803-2) SUE (test code = SUE) DRUG CUTOFF CONC.Cocaine 300 ng/mL Cannabinoid 50 ng/mLBenzodiazepine 200 ng/mLBarbiturate 200 ng/mLPhencyclidine 25 ng/mLOpiate 300 ng/mLMethadone 300 ng/mLAmphetamine/ 1000 ng/mL Methamphetamine This assay provides an unconfirmed qualitative test result for the clinical management of patients in emergency situations. Chain of custody not maintained. Some lwoq-psd-hbgctwq medications, as well as adulterants, may cause inaccurate results. Clinical correlation should be applied. A more comprehensive drug screen or confirmation of a detected drug may be performed upon request.Coil Assembler ID - JSOperator ID - [auto] Lab Interpretation Abnormal (test code = 85086-4) [facility] CenterRapid [facility] screen, [id number] 14:06:15 Test Item Value Reference Range Interpretation Comments Barbiturate Screen Negative Negative (test code = 18456-7) Benzodiazepine Screen Negative Negative (test code = 60834-7) Cocaine (Metab.) Negative Negative Screen (test code = 3397-7) Methadone Screen (test Negative Negative code = 56459-8) Opiate Screen (test Negative Negative code = 24602-3) Cannabinoid Screen Negative Negative (test code = 92290-6) Amph/Methamph Screen Positive Negative A (test code = 90453-1) Phencyclidine Screen Negative Negative (test code = 38012-7) pH, UA (test code = 6.0 5.0-8.0 5803-2) SUE (test code = SUE) DRUG CUTOFF CONC.Cocaine 300 ng/mL Cannabinoid 50 ng/mLBenzodiazepine 200 ng/mLBarbiturate 200 ng/mLPhencyclidine 25 ng/mLOpiate 300 ng/mLMethadone 300 ng/mLAmphetamine/ 1000 ng/mL Methamphetamine This assay provides an unconfirmed qualitative test result for the clinical management of patients in emergency situations. Chain of custody not maintained. Some xfll-hrf-ggomjvq medications, as well as adulterants, may cause inaccurate results. Clinical correlation should be applied. A more comprehensive drug screen or confirmation of a detected drug may be performed upon request.Coil Assembler ID - JSOperator ID - [auto] Lab Interpretation Abnormal (test code = 53833-7) [facility] CenterR[facility] screen, [id number] 14:06:15 Test Item Value Reference Range Interpretation Comments Barbiturate Screen Negative Negative (test code = 03524-1) Benzodiazepine Screen Negative Negative (test code = 51757-5) Cocaine (Metab.) Negative Negative Screen (test code = 3397-7) Methadone Screen (test Negative Negative code = 01108-5) Opiate Screen (test Negative Negative code = 17755-2) Cannabinoid Screen Negative Negative (test code = 07563-7) Amph/Methamph Screen Positive Negative A (test code = 46670-4) Phencyclidine Screen Negative Negative (test code = 65127-2) pH, UA (test code = 6.0 5.0-8.0 5803-2) SUE (test code = SUE) DRUG CUTOFF CONC.Cocaine 300 ng/mL Cannabinoid 50 ng/mLBenzodiazepine 200 ng/mLBarbiturate 200 ng/mLPhencyclidine 25 ng/mLOpiate 300 ng/mLMethadone 300 ng/mLAmphetamine/ 1000 ng/mL Methamphetamine This assay provides an unconfirmed qualitative test result for the clinical management of patients in emergency situations. Chain of custody not maintained. Some hctz-ehc-lojcbvw medications, as well as adulterants, may cause inaccurate results. Clinical correlation should be applied. A more comprehensive drug screen or confirmation of a detected drug may be performed upon request.Coil Assembler ID - JSOperator ID - [auto] Lab Interpretation Abnormal (test code = 20018-0) [facility] CenterRAPID DRUG SCREEN, [id number] 14:06:15 Test Item Value Reference Range Interpretation [...] situations. Chain of custody not maintained. Some gouv-ozq-golsyay medications, as well as adulterants, may cause inaccurate results. Clinical correlation should be applied. A more comprehensive drug screen or confirmation of a detected drug may be performed upon request.Coil Assembler ID - JSOperator ID - [auto] HEMOGLOBIN [id number] 13:23:17 Test Item Value Reference Range Interpretation Comments HEMOGLOBIN A1C 4.5 % See_Comment [Automated m essage] ELECTROPHORESIS (Publish2) The system which (test code = 3811) generated this result transmitted ref erence range: <=5.6%. The reference range was not used to int erpret this result as normal/abnormal . "The A1c is measured using a NGSP-certified method. HbA1c value equal to or greater than 6.5% as thediagnosis cutoff for diabetes. An HbA1c value of 5.7- 6.4% indicates increased risk for diabetes (prediabetes)."Coil Assembler ID - ADMOperator ID - ADMCTA [id number] 13:16:45CT BRAIN WITHOUT IV CONTRAST, CTA CAROTID, CTA BRAINBRAIN CT WITHOUT CONTRAST INDICATION: Unlisted Reason for Exam, intraparenchymal hematoma COMPARISON: None TECHNIQUE:Rapid acquisition spiral images were obtained between the aortic archand the cranial vertex during intravenous contrast infusion toreconstruct axial images and angiographic 3D maximum intensityprojections (MIP). 3-D volumetric reformatted images were created at [employer] workstation. Precontrast images of the brain were [...] opacities, which mayrepresent atelectasis, pneumonia or pulmonary edema.[facility] CenterCTA [id number] 13:16:45CT BRAIN WITHOUT IV CONTRAST, CTA CAROTID, CTA BRAINBRAIN CT WITHOUT CONTRAST INDICATION: Unlisted Reason for Exam, intraparenchymal hematoma COMPARISON: None TECHNIQUE:Rapid acquisition spiral images were obtained between the aortic archand the cranial vertex during intravenous contrast infusion toreconstruct axial images and angiographic 3D maximum intensityprojections (MIP). 3-D volumetric reformatted images were created at [employer] workstation. Precontrast images of the brain were [...] opacities, which mayrepresent atelectasis, pneumonia or pulmonary edema.[facility] CenterCTA [id number] 13:16:45 [facility] : 1975 Sex: FCT BRAIN WITHOUT IV CONTRAST, CTA CAROTID, CTA BRAINBRAIN CT WITHOUT CONTRASTINDICATION: Unlisted Reason for Exam, intraparenchymal hematomaCOMPARISON: NoneTECHNIQUE:Rapid acquisition spiral images were obtained between the aortic archand the cranial vertex during intravenous contrast infusion toreconstruct axial images and angiographic 3D maximum intensityprojections (MIP). 3-D volumetric reformatted images were created at [employer] workstation. Precontrast images of the brain were [...] Signed By: Luís Mclain10/29/2022 13:18 CDTWorkstation Name: [id number] BRAIN WITHOUT IV [id number] 13:16:45 [facility] : 1975 Sex: FCT BRAIN WITHOUT IV CONTRAST, CTA CAROTID, CTA BRAINBRAIN CT WITHOUT CONTRASTINDICATION: Unlisted Reason for Exam, intraparenchymal hematomaCOMPARISON: NoneTECHNIQUE:Rapid acquisition spiral images were obtained between the aortic archand the cranial vertex during intravenous contrast infusion toreconstruct axial images and angiographic 3D maximum intensityprojections (MIP). 3-D volumetric reformatted images were created at [employer] workstation. Precontrast images of the brain were [...] Signed By: Luís Mclain10/29/2022 13:18 CDTWorkstation Name: [id number] 13:16:45[facility] Irineo : 1975 Sex: FCT BRAIN WITHOUT IV CONTRAST, CTA CAROTID, CTA BRAINBRAIN CT WITHOUT CONTRASTINDICATION: Unlisted Reason for Exam, intraparenchymal hematomaCOMPARISON: NoneTECHNIQUE:Rapid acquisition spiral images were obtained between the aortic archand the cranial vertex during intravenous contrast infusion toreconstruct axial images and angiographic 3D maximum intensityprojections (MIP). 3-D volumetric reformatted images were created at [employer] workstation. Precontrast images of the brain were [...] Signed By: Luís Mclain10/29/2022 13:18 CDTWorkstation Name: [id number], QUANTITATIVE, [id number] 13:15:24 Test Item Value Reference Range Interpretation Comments GONADOTROPIN, CHORIONIC (HCG) QUANT < mIU/mL 0-10 (BEAKER) (test code = 649) Non- Females: <10 mIU/mL Females: Gestation Age Reference Range(mIU/mL) 0.2-1 Week 5-50 1-2 Weeks 50-500 2-3 Weeks 100-5,000 3-4 Weeks 500-10,000 4-5 Weeks 1,000-50,000 5-6 Weeks 10,000-100,000 6-8 Weeks 15,000- 200,000 2-3 Months 10,000-100,000 Coil Assembler ID - Jorgelity, [id number] 13:07:55 Test Item Value Reference Range Interpretation Comments Osmolality, Ur (test code 529 See_Comment [ Automated message] = 2695-5) The system [employer] generated this result transmitted ref erence range: 50-1,200 mOsm/kg mOsm/kg . The reference range was not used to int erpret this result as normal/abnormal . Lab Interpretation (test Normal code = 87414-0) [facility] CenterOsmolality, [id number] 13:07:55 Test Item Value Reference Range Interpretation Comments Osmolality, Ur (test code 529 See_Comment [ Automated message] = 2695-5) The system [employer] generated this result transmitted ref erence range: 50-1,200 mOsm/kg mOsm/kg . The reference range was not used to int erpret this result as normal/abnormal . Lab Interpretation (test Normal code = 71278-7) [facility], [id number] 13:07:55 Test Item Value Reference Range Interpretation Comments Osmolality, Ur (test code 529 See_Comment [ Automated message] = 2695-5) The system [employer] generated this result transmitted ref erence range: 50-1,200 mOsm/kg mOsm/kg . The reference range was not used to int erpret this result as normal/abnormal . Lab Interpretation (test Normal code = 19109-2) [facility], [id number] 13:07:55 Test Item Value Reference Range Interpretation Comments Osmolality, Ur (test code 529 See_Comment [ Automated message] = 2695-5) The system [employer] generated this result transmitted ref erence range: 50-1,200 mOsm/kg mOsm/kg . The reference range was not used to int erpret this result as normal/abnormal . Lab Interpretation (test Normal code = 37782-0) [facility], [id number] 13:07:55 Test Item Value Reference Range Interpretation Comments Osmolality, Ur (test code 529 See_Comment [ Automated message] = 2695-5) The system [employer] generated this result transmitted ref erence range: 50-1,200 mOsm/kg mOsm/kg . The reference range was not used to int erpret this result as normal/abnormal . Lab Interpretation (test Normal code = 73576-0) [facility], [id number] 13:07:55 Test Item Value Reference Range Interpretation Comments Osmolality, Ur (test code 529 See_Comment [ Automated message] = 2695-5) The system [employer] generated this result transmitted ref erence range: 50-1,200 mOsm/kg mOsm/kg . The reference range was not used to int erpret this result as normal/abnormal . Lab Interpretation (test Normal code = 44813-0) [facility], [id number] 13:07:55 Test Item Value Reference Range Interpretation Comments Osmolality, Ur (test code 529 See_Comment [ Automated message] = 2695-5) The system [employer] generated this result transmitted ref erence range: 50-1,200 mOsm/kg mOsm/kg . The reference range was not used to int erpret this result as normal/abnormal . Lab Interpretation (test Normal code = 46005-9) [facility] [id number] 13:07:55 Test Item Value Reference Range Interpretation Comments OSMOLALITY URINE 529 mOsm/kg See_Comment [Automated message] (BEAKER) (test code = The sy stem which 614) generated this result transmitted ref erence range: 50-1,200 mOsm/kg. The reference range was not used to int erpret this result as normal/abnormal . Urea Nitrogen, random [id number] 12:57:04 Test Item Value Reference Range Interpretation Comments Urea Nitrogen, Ur 186 mg/dL (test code = 3095-7) SUE (test code = Reference Range: No SUE) NormalsOperator ID - [facility] [id number] 12:57:04 Test Item Value Reference Range Interpretation Comments Urea Nitrogen, Ur 186 mg/dL (test code = 3095-7) SUE (test code = Reference Range: No SUE) NormalsOperator ID - [facility], random [id number] 12:57:04 Test Item Value Reference Range Interpretation Comments Urea Nitrogen, Ur 186 mg/dL (test code = 3095-7) SUE (test code = Reference Range: No SUE) NormalsOperator ID - [facility], random [id number] 12:57:04 Test Item Value Reference Range Interpretation Comments Urea Nitrogen, Ur 186 mg/dL (test code = 3095-7) SUE (test code = Reference Range: No SUE) NormalsOperator ID - [facility], random [id number] 12:57:04 Test Item Value Reference Range Interpretation Comments Urea Nitrogen, Ur 186 mg/dL (test code = 3095-7) SUE (test code = Reference Range: No SUE) NormalsOperator ID - [facility], random [id number] 12:57:04 Test Item Value Reference Range Interpretation Comments Urea Nitrogen, Ur 186 mg/dL (test code = 3095-7) SUE (test code = Reference Range: No SUE) NormalsOperator ID - [facility], random [id number] 12:57:04 Test Item Value Reference Range Interpretation Comments Urea Nitrogen, Ur 186 mg/dL (test code = 3095-7) SUE (test code = Reference Range: No SUE) NormalsOperator ID - [facility] NITROGEN, RANDOM [id number] 12:57:04 Test Item Value Reference Range Interpretation Comments UREA NITROGEN URINE (BEAKER) (test 186 mg/dL code = 538) Reference Range: No NormalsOperator ID - Juvenciodium, random [id number] 12:57:03 Test Item Value Reference Range Interpretation Comments Sodium Urine (test 155 meq/L code = 2955-3) SUE (test code = Reference Range: No SUE) NormalsOperator [facility] [id number] 12:57:03 Test Item Value Reference Range Interpretation Comments Sodium Urine (test 155 meq/L code = 2955-3) SUE (test code = Reference Range: No SUE) NormalsOperator ID - [facility] [id number] 12:57:03 Test Item Value Reference Range Interpretation Comments Sodium Urine (test 155 meq/L code = 2955-3) SUE (test code = Reference Range: No SUE) NormalsOperator ID - [facility] [id number] 12:57:03 Test Item Value Reference Range Interpretation Comments Sodium Urine (test 155 meq/L code = 2955-3) SUE (test code = Reference Range: No SUE) NormalsOperator ID - [facility] [id number] 12:57:03 Test Item Value Reference Range Interpretation Comments Sodium Urine (test 155 meq/L code = 2955-3) SUE (test code = Reference Range: No SUE) NormalsOperator ID - [facility] [id number] 12:57:03 Test Item Value Reference Range Interpretation Comments Sodium Urine (test 155 meq/L code = 2955-3) SUE (test code = Reference Range: No SUE) NormalsOperator ID - [facility] [id number] 12:57:03 Test Item Value Reference Range Interpretation Comments Sodium Urine (test 155 meq/L code = 2955-3) SUE (test code = Reference Range: No SUE) NormalsOperator ID - [facility] HospitalODI[facility], RANDOM [id number] 12:57:03 Test Item Value Reference Range Interpretation Comments SODIUM URINE (BEAKER) (test code = 155 meq/L 243) Reference Range: No NormalsOperator ID - JSOSMOLALITY, [id number] 12:52:21 Test Item Value Reference Range Interpretation Comments OSMOLALITY, SERUM (BEAKER) (test 290 mOsm/kg 275-295 code = 615) [id number] 12:52:14 Test Item Value Reference Range Interpretation Comments SODIUM (BEAKER) (test code = 381) 140 meq/L 136-145 Coil Assembler ID - MARCOPregnancy Screen, [id number] 09:52:55 Test Item Value Reference Range Interpretation Comments Preg Test, Ur (test code = 2112-1) Negative Negative Lab Interpretation (test code = Normal 68372-5) [facility], [id number] 09:52:55 Test Item Value Reference Range Interpretation Comments Preg Test, Ur (test code = 2112-1) Negative Negative Lab Interpretation (test code = Normal 01781-6) [facility], [id number] 09:52:55 Test Item Value Reference Range Interpretation Comments Preg Test, Ur (test code = 2112-1) Negative Negative Lab Interpretation (test code = Normal 78136-0) [facility], [id number] 09:52:55 Test Item Value Reference Range Interpretation Comments Preg Test, Ur (test code = 2112-1) Negative Negative Lab Interpretation (test code = Normal 10068-5) [facility], [id number] 09:52:55 Test Item Value Reference Range Interpretation Comments Preg Test, Ur (test code = 2112-1) Negative Negative Lab Interpretation (test code = Normal 82363-6) [facility] CenterP[facility], [id number] 09:52:55 Test Item Value Reference Range Interpretation Comments Preg Test, Ur (test code = 2112-1) Negative Negative Lab Interpretation (test code = Normal 93915-4) [facility] CenterP[facility] Screen, [id number] 09:52:55 Test Item Value Reference Range Interpretation Comments Preg Test, Ur (test code = 2112-1) Negative Negative Lab Interpretation (test code = Normal 27202-7) [facility] CenterPREANCY SCREEN, [id number] 09:52:55 Test Item Value Reference Range Interpretation Comments TEST URINE (BEAKER) (test Negative Negative code = 583) BLOOD GAS, [id number] 08:02:40 Test Item Value Reference Range Interpretation [...] (BEAKER) (test code = 1819) 40.0 T4, [id number] 06:13:37 Test Item Value Reference Range Interpretation Comments FREE T4 (BEAKER) (test code = 655) 0.90 ng/dL 0.70-1.48 Coil Assembler ID - ADMINTSH/FREE T4 IF [id number] 05:34:42 Test Item Value Reference Range Interpretation Comments THYROID STIMULATING HORMONE 6.331 uIU/mL 0.350-4.940 H (BEAKER) (test code = 772) Coil Assembler ID - [id number] 05:26:57 Test Item Value Reference Range Interpretation Comments MAGNESIUM (BEAKER) (test code = 1.8 mg/dL 1.6-2.6 627) Coil Assembler ID - [id number] 05:26:57 Test Item Value Reference Range Interpretation Comments PHOSPHORUS (BEAKER) (test code = 3.0 mg/dL 2.3-4.7 604) Coil Assembler ID - MARCOCOMPREHENSIVE METABOLIC [id number] 05:26:56 Test Item Value Reference Range Interpretation [...] not appl icable for dialysis patien ts Coil Assembler ID - LUIS ER CHEST 1 VIEW PORTABLE / [id number] 05:03:50 [facility] : 1975 Sex: FXR [...] Signed By: Jaziel Monte10/29/2022 05:05 CDTWorkstation Name: [id number] 04:56:04 Test Item Value Reference Range Interpretation Comments PARTIAL THROMBOPLASTIN TIME 30.4 seconds 22.5-36.0 (BEAKER) (test code = 760) PROTHROMBIN TIME/[id number] 04:55:22 Test Item Value Reference Range Interpretation Comments PROTIME (BEAKER) 13.6 seconds 11.9-14.2 (test code = 759) INR (BEAKER) (test 1.06 See_Comment [Automat ed message] code = 370) The system [employer] generated this result transmitted ref erence range: <=5.90. The reference range was not used to int erpret this result as normal/abnormal . RECOMMENDED COUMADIN/WARFARIN INR THERAPY RANGESSTANDARD DOSE: 2.0 - 3.0 Includes: PROPHYLAXIS for venous thrombosis, systemic embolization; TREATMENT for venous thrombosis and/or pulmonary embolus.HIGH RISK: Target INR is 2.5-3.5 for patients with mechanical heart valves.CBC W/PLT COUNT & AUTO [id number] 04:50:18 Test Item Value Reference Range Interpretation [...] (BEAKER) (test code = 2801) BLOOD GAS, [id number] 04:03:20 Test Item Value Reference Range Interpretation [...] (BEAKER) (test code = 1819) 60.0 CALCIUM, [id number] 03:59:22 Test Item Value Reference Range Interpretation Comments CALCIUM IONIZED (BEAKER) (test 1.09 mmol/L 1.12-1.27 L code = 698) PH, BLOOD (BEAKER) (test code = 7.33 1810) [facility] [id number] 03:47:51Murray Elise NP 10/29/2022 3:48 AMCentral Line [...] to verify the correct patient, procedure, equipment, user support analyst supervisor and site/side marked as required.Indications:vascular accessAnesthesia: local [...] NoneType of anesthesia: NoneGrafts or Implants: NoneCH[facility] Center[facility] [id number] 03:47:51Murray Elise NP 10/29/2022 3:48 AMCentral Line [...] to verify the correct patient, procedure, equipment, user support analyst supervisor and site/side marked as required.Indications:vascular accessAnesthesia: local [...] NoneComplications: NoneType of anesthesia: NoneGrafts or Implants: [facility] 2022-[facility]-29 03:47:51Murray Elise NP 10/29/2022 [...] to verify the correct patient, procedure, equipment, user support analyst supervisor and site/side marked as required.Indications:vascular accessAnesthesia: local [...] NoneComplications: NoneType of anesthesia: NoneGrafts or Implants: [facility] [id number] 03:47:51Murray Elise NP 10/29/2022 3:48 [facility] Line Date/Time: 10/29/2022 3:47 AMPerformed by: Murray [...] to verify the correct patient, procedure, equipment, user support analyst supervisor and site/side marked as required.Indications:vascular accessAnesthesia: local [...] NoneComplications: NoneType of anesthesia: NoneGrafts or Implants: [facility] Line 2022-10-29 03:47:51Murray Elise NP 10/29/2022 3:48 [facility] Line Date/Time: 10/29/2022 3:47 AMPerformed by: Murray [...] to verify the correct patient, procedure, equipment, user support analyst supervisor and site/side marked as required.Indications:vascular accessAnesthesia: local [...] NoneType of anesthesia: NoneGrafts or Implants: None[facility] CenterCentral [id number] 03:47:51Murray Elise NP 10/29/2022 3:48 AMCentral Line [...] to verify the correct patient, procedure, equipment, user support analyst supervisor and site/side marked as required.Indications:vascular accessAnesthesia: local [...] NoneType of anesthesia: NoneGrafts or Implants: [facility] Line 2022-10-29 03:47:51Murray Elise NP [...] to verify the correct patient, procedure, equipment, user support analyst supervisor and site/side marked as required.Indications:vascular accessAnesthesia: local [...] NoneType of anesthesia: NoneGrafts or Implants: NoneCH[facility] CenterInsm[facility] Arterial [id number] 03:46:45Murray Elise NP 10/29/2022 3:47 AMInsert Arterial [...] to verify the correct patient, procedure, equipment, user support analyst supervisor and site/side marked as required.Preparation: Patient was prepped and draped in the usual sterile fashion.Indications: multiple ABGs and hemodynamic monitoringLocation: right radial Anesthesia:Local Anesthetic: lidocaine 2% without epinephrineAllen's test normal: yesNeedle gauge: 18Seldinger technique: Seldinger technique usedNumber of attempts: 1Post- procedure: line sutured and dressing appliedPost-procedure CMS: normalPatient tolerance: patient tolerated the procedure well with no immediate complications [facility] Arterial [id number] 03:46:45Murray Elise NP 10/29/2022 3:47 AMInsert Arterial Line Date/Time: 10/29/2022 3:46 AMPerformed by: Murray Elise, NPAuthorized by: Murray Elise NP Consent: The procedure was performed in an emergent situation.Relevant documents: relevant documents present and verifiedTest results: test results available and properly labeledSite marked: the operative site was markedImaging studies: imaging studies availablePatient identity confirmed: arm bandTime out: Immediately prior to procedure a "time out" was called to verify the correct patient, procedure, equipment, user support analyst supervisor and site/side marked as required.Preparation: Patient was prepped and draped in the usual sterile fashion.Indications: multiple ABGs and hemodynamic monitoringLocation: right radial Anesthesia:Local Anesthetic: lidocaine 2% without epinephrineAllen's test normal: yesNeedle gauge: 18Seldinger technique: Seldinger technique usedNumber of attempts: 1Post- procedure: line sutured and dressing appliedPost-procedure CMS: normalPatient tolerance: patient tolerated the procedure well with no immediate complications [facility] Ar[facility] [id number] 03:46:45Murray Elise NP 10/29/2022 3:47 AMInsert Arterial [...] to verify the correct patient, procedure, equipment, user support analyst supervisor and site/side marked as required.Preparation: Patient was prepped and draped in the usual sterile fashion.Indications: multiple ABGs and hemodynamic monitoringLocation: right radial Anesthesia:Local Anesthetic: lidocaine 2% without epinephrineAllen's test normal: yesNeedle gauge: 18Seldinger technique: Seldinger technique usedNumber of attempts: 1Post- procedure: line sutured and dressing appliedPost-procedure CMS: normalPatient tolerance: patient tolerated the procedure well with no immediate complications [facility] Arterial [id number] 03:46:45Murray Elise NP 10/29/2022 3:47 AMInsert Arterial [...] to verify the correct patient, procedure, equipment, user support analyst supervisor and site/side marked as required.Preparation: Patient was prepped and draped in the usual sterile fashion.Indications: multiple ABGs and hemodynamic monitoringLocation: right radial Anesthesia:Local Anesthetic: lidocaine 2% without epinephrineAllen's test normal: yesNeedle gauge: 18Seldinger technique: Seldinger technique usedNumber of attempts: 1Post- procedure: line sutured and dressing appliedPost-procedure CMS: normalPatient tolerance: patient tolerated the procedure well with no immediate complications [facility] Arterial [id number] 03:46:45Murray Elise NP 10/29/2022 3:47 AMInsert Arterial [...] to verify the correct patient, procedure, equipment, user support analyst supervisor and site/side marked as required.Preparation: Patient was prepped and draped in the usual sterile fashion.Indications: multiple ABGs and hemodynamic monitoringLocation: right radial Anesthesia:Local Anesthetic: lidocaine 2% without epinephrineAllen's test normal: yesNeedle gauge: 18Seldinger technique: Seldinger technique usedNumber of attempts: 1Post- procedure: line sutured and dressing appliedPost-procedure CMS: normalPatient tolerance: patient tolerated the procedure well with no immediate complications [facility] Arterial [id number] 03:46:45Murray Elise NP 10/29/2022 3:47 AMInsert Arterial [...] to verify the correct patient, procedure, equipment, user support analyst supervisor and site/side marked as required.Preparation: Patient was prepped and draped in the usual sterile fashion.Indications: multiple ABGs and hemodynamic monitoringLocation: right radial Anesthesia:Local Anesthetic: lidocaine 2% without epinephrineAllen's test normal: yesNeedle gauge: 18Seldinger technique: Seldinger technique usedNumber of attempts: 1Post- procedure: line sutured and dressing appliedPost-procedure CMS: normalPatient tolerance: patient tolerated the procedure well with no immediate complications [facility] CenterInsert Arterial [id number] 03:46:45Murray Elise NP 10/29/2022 3:47 AMInsert Arterial [...] to verify the correct patient, procedure, equipment, user support analyst supervisor and site/side marked as required.Preparation: Patient was prepped and draped in the usual sterile fashion.Indications: multiple ABGs and hemodynamic monitoringLocation: right radial Anesthesia:Local Anesthetic: lidocaine 2% without epinephrineAllen's test normal: yesNeedle gauge: 18Seldinger technique: Seldinger technique usedNumber of attempts: 1Post- procedure: line sutured and dressing appliedPost-procedure CMS: normalPatient tolerance: patient tolerated the procedure well with no immediate complications [facility]-[id number] 00:00:00Ordered by an unspecified provider.[facility]-[id number] 00:00:00 Ordered by an unspecified provider.[facility]-SCANNED 2022-10-29 00:00:00Ordered by an unspecified provider.[facility]-[id number] 00:00:00Ordered by an unspecified provider.[facility]-[id number] 00:00:00Ordered by an unspecified provider.[facility]-[id number] 00:00:00Ordered by an unspecified provider.[facility]-[id number] 00:00:00 [facility] an unspecified provider[facility] + [id number] 08:28:10 Test Item Value Reference Range Interpretation Comments Result (test code = No fungus isolated in 6463-4) 28 days Fungus Smear (test No fungal elements seen code = 1406) [facility] culture + [id number] 08:28:10 Test Item Value Reference Range Interpretation Comments Result (test code = No fungus isolated in 6463-4) 28 days Fungus Smear (test No fungal elements seen code = 1406) [facility] culture + [id number] 08:28:10 Test Item Value Reference Range Interpretation Comments Result (test code = No fungus isolated in 6463-4) 28 days Fungus Smear (test No fungal elements seen code = 1406) [facility] culture + [id number] 08:28:10 Test Item Value Reference Range Interpretation Comments Result (test code = No fungus isolated in 6463-4) 28 days Fungus Smear (test No fungal elements seen code = 1406) [facility] culture + [id number] 08:28:10 Test Item Value Reference Range Interpretation Comments Result (test code = No fungus isolated in 6463-4) 28 days Fungus Smear (test No fungal elements seen code = 1406) [facility] + [id number] 08:28:10 Test Item Value Reference Range Interpretation Comments Result (test code = No fungus isolated in 6463-4) 28 days Fungus Smear (test No fungal elements seen code = 1406) [facility] culture + [id number] 08:28:10 Test Item Value Reference Range Interpretation Comments Result (test code = No fungus isolated in 6463-4) 28 days Fungus Smear (test No fungal elements seen code = 1406) [facility] culture + [id number] 08:28:10 Test Item Value Reference Range Interpretation Comments Result (test code = No fungus isolated in 6463-4) 28 days Fungus Smear (test No fungal elements seen code = 1406) [facility] + [id number] 08:28:10 Test Item Value Reference Range Interpretation Comments CULTURE (BEAKER) (test No fungus isolated in code = 1095) 28 days FUNGUS SMEAR (BEAKER) No fungal elements seen (test code = 1406) [id number] 05:54:28 Test Item Value Reference Range Interpretation Comments MAGNESIUM (BEAKER) (test code = 1.9 mg/dL 1.6-2.6 627) Coil Assembler ID - [id number] 05:54:28 Test Item Value Reference Range Interpretation Comments PHOSPHORUS (BEAKER) (test code = 5.2 mg/dL 2.3-4.7 H 604) Coil Assembler ID - MARCOBASIC METABOLIC [id number] 05:54:27 Test Item Value Reference Range Interpretation [...] not appl icable for dialysis patien ts Coil Assembler ID - MARCOCBC W/PLT COUNT & AUTO [id number] 05:42:51 Test Item Value Reference Range Interpretation [...] PERCENT (BEAKER) (test code = 2801) CALCIUM, [id number] 05:36:04 Test Item Value Reference Range Interpretation Comments CALCIUM IONIZED (BEAKER) (test 1.12 mmol/L 1.12-1.27 code = 698) PH, BLOOD (BEAKER) (test code = 7.42 1810) Anaerobic [id number] 02:03:45 Test Item Value Reference Range Interpretation Comments Result (test code = No anaerobes isolated 6463-4) [facility] [id number] 02:03:45 Test Item Value Reference Range Interpretation Comments Result (test code = No anaerobes isolated 6463-4) [facility] [id number] 02:03:45 Test Item Value Reference Range Interpretation Comments Result (test code = No anaerobes isolated 6463-4) [facility] [id number] 02:03:45 Test Item Value Reference Range Interpretation Comments Result (test code = No anaerobes isolated 6463-4) [facility] [id number] 02:03:45 Test Item Value Reference Range Interpretation Comments Result (test code = No anaerobes isolated 6463-4) [facility] [id number] 02:03:45 Test Item Value Reference Range Interpretation Comments Result (test code = No anaerobes isolated 6463-4) [facility]2023-05-27 02:03:45 Test Item Value Reference Range Interpretation Comments Result (test code = No anaerobes isolated 6463-4) [facility]2023-05-27 02:03:45 Test Item Value Reference Range Interpretation Comments Result (test code = No anaerobes isolated 6463-4) [facility] [id number] 02:03:45 Test Item Value Reference Range Interpretation Comments CULTURE (BEAKER) (test No anaerobes isolated code = 1095) STD Panel - CT/GC [id number] 17:37:44 Test Item Value Reference Interpretation Comments Range C. trachomatis NOT DETECTED RNA, TMA (test code = 0597707) N. gonorrhoeae NOT DETECTED REFERENCE RA NGE: NOT RNA, TMA (test DETECTED Meth odology: code = 9612109) Transcriptio n Mediated Amplification ( TMA)to detect RNA. The analytical perf ormance characteristics of thisassay, when used to test SurePat h(TM) specimens haveb een determined by [facility]. Th e modificationsha ve not been cleared or approved by the FDA. This assayhas b een validated pursu ant to the [place] tions andis used for clinical purpos es. For additional information, pl ease refer tohttps://Genoa [employer]a Agilyx/faq /NCD197(This li nk is being provided for informational/e ducatio nal purposes on ly.) SUE (test code = Performing Lab SUE) *[facility] [address] [address] Sylvie Gresham MD, PhD [facility]GC [id number] 17:37:44 Test Item Value Reference Interpretation Comments Range C. trachomatis NOT DETECTED RNA, TMA (test code = 9123731) N. gonorrhoeae NOT DETECTED REFERENCE RA NGE: NOT RNA, TMA (test DETECTED Meth odology: code = 9994544) Transcriptio n Mediated Amplification ( TMA)to detect RNA. The analytical perf ormance characteristics of thisassay, when used to test SurePat h(TM) specimens haveb een determined by [facility]. Th e modificationsha ve not been cleared or approved by the FDA. This assayhas b een validated pursu ant to the CLIA regula tions andis used for clinical purpos es. For additional information, pl ease refer tohttps://educa Agilyx/faq /YHC833(This li nk is being provided for informational/e ducatio nal purposes on ly.) SUE (test code = Performing Lab SUE) *[facility] [address] [address] Sylvie Gresham MD, PhD [facility] Panel - CT/GC [id number] 17:37:44 Test Item Value Reference Interpretation Comments Range C. trachomatis NOT DETECTED RNA, TMA (test code = 1406252) N. gonorrhoeae NOT DETECTED REFERENCE RA NGE: NOT RNA, TMA (test DETECTED Meth odology: code = 3141765) Transcriptio n Mediated Amplification ( TMA)to detect RNA. The analytical perf ormance characteristics of thisassay, when used to test SurePat h(TM) specimens haveb een determined by [facility]. Th e modificationsha ve not been cleared or approved by the FDA. This assayhas b een validated pursu ant to the CLIA regula tions andis used for clinical purpos es. For additional information, pl ease refer tohttps://educa tion.Ecommo/faq /DEJ322(This li nk is being provided for informational/e ducatio nal purposes on ly.) SUE (test code = Performing Lab SUE) *[facility] [address] [address] Sylvie Gresham MD, PhD [facility] Panel - CT/GC [id number] 17:37:44 Test Item Value Reference Interpretation Comments Range C. trachomatis NOT DETECTED RNA, TMA (test code = 3317748) N. gonorrhoeae NOT DETECTED REFERENCE RA NGE: NOT RNA, TMA (test DETECTED Meth odology: code = 0989861) Transcriptio n Mediated Amplification ( TMA)to detect RNA. The analytical perf ormance characteristics of thisassay, when used to test SurePat h(TM) specimens haveb een determined by [facility]. Th e modificationsha ve not been cleared or approved by the FDA. This assayhas b een validated pursu ant to the CLIA regula tions andis used for clinical purpos es. For additional information, pl ease refer tohttps://[employer]a [employer]. [employer]/faq /JST068(This li nk is being provided for informational/e ducatio nal purposes on ly.) SUE (test code = Performing Lab SUE) *[facility] [address] [address] Sylvie Gresham MD, PhD [facility] Panel - CT/GC [id number] 17:37:44 Test Item Value Reference Interpretation Comments Range C. trachomatis NOT DETECTED RNA, TMA (test code = 9576561) N. gonorrhoeae NOT DETECTED REFERENCE RA NGE: NOT RNA, TMA (test DETECTED Meth odology: code = 2748969) Transcriptio n Mediated Amplification ( TMA)to detect RNA. The analytical perf ormance characteristics of thisassay, when used to test SurePat h(TM) specimens haveb een determined by [facility]. Th e modificationsha ve not been cleared or approved by the FDA. This assayhas b een validated pursu ant to the CLIA regula tions andis used for clinical purpos es. For additional information, pl ease refer tohttps://educa [employer]. [employer]/faq /CXR986(This li nk is being provided for informational/e ducatio nal purposes on ly.) SUE (test code = Performing Lab SUE) *[facility] [address] [address] Sylvie Gresham MD, PhD [facility] Panel - CT/GC [id number] 17:37:44 Test Item Value Reference Interpretation Comments Range C. trachomatis NOT DETECTED RNA, TMA (test code = 0889480) N. gonorrhoeae NOT DETECTED REFERENCE RA NGE: NOT RNA, TMA (test DETECTED Meth odology: code = 3198335) Transcriptio n Mediated Amplification ( TMA)to detect RNA. The analytical perf ormance characteristics of thisassay, when used to test SurePat h(TM) specimens haveb een determined by [facility]. Th e modificationsha ve not been cleared or approved by the FDA. This assayhas b een validated pursu ant to the CLIA regula tions andis used for clinical purpos es. For additional information, pl ease refer tohttps://[employer]oa [employer]a [employer]. [employer]/faq /IMN430(This li nk is being provided for informational/e ducatio nal purposes on ly.) SUE (test code = Performing Lab SUE) *[facility] [place] [id number] Sylvie Gresham MD, PhD [facility] Panel - CT/GC [id number] 17:37:44 Test Item Value Reference Interpretation Comments Range C. trachomatis NOT DETECTED RNA, TMA (test code = 2409312) N. gonorrhoeae NOT DETECTED REFERENCE RA NGE: NOT RNA, TMA (test DETECTED Meth odology: code = 2060600) Transcriptio n Mediated Amplification ( TMA)to detect RNA. The analytical perf ormance characteristics of thisassay, when used to test SurePat h(TM) specimens haveb een determined by [facility]. Th e modificationsha ve not been cleared or approved by the FDA. This assayhas b een validated pursu ant to the CLIA regula tions andis used for clinical purpos es. For additional information, pl ease refer tohttps://educa [employer]on.[employer]. [employer]/faq /SKQ125(This li nk is being provided for informational/e ducatio nal purposes on ly.) SUE (test code = Performing Lab SUE) *[facility] Sylvie Gresham MD, PhD [facility] Panel - CT/GC [id number] 17:37:44 Test Item Value Reference Interpretation Comments Range C. trachomatis NOT DETECTED RNA, TMA (test code = 9811583) N. gonorrhoeae NOT DETECTED REFERENCE RA NGE: NOT RNA, TMA (test DETECTED Meth odology: code = 5197125) Transcriptio n Mediated Amplification ( TMA)to detect [...] For additional information, pl ease refer tohttps://educa vamsi.[employer]. [employer]/faq /RNR561(This li nk is being provided for informational/e ducatio nal purposes on ly.) SUE (test code = Performing Lab SUE) *[facility] [address] [place] [address] Sylvie Gresham MD, PhD [facility] METABOLIC [id number] 16:40:09 Test Item Value Reference Range Interpretation [...] not appl icable for dialysis patien ts Coil Assembler ID - BSOsmolality, [id number] 12:43:16 Test Item Value Reference Range Interpretation Comments Osmolality, Ur (test code 245 See_Comment [ Automated message] = 2695-5) The system [employer] generated this result transmitted ref erence range: 50-1,200 mOsm/kg mOsm/kg . The reference range was not used to int erpret this result as normal/abnormal . Lab Interpretation (test Normal code = 17562-9) [facility] CenterOSMOLALITY, [id number] 12:43:16 Test Item Value Reference Range Interpretation Comments OSMOLALITY URINE 245 mOsm/kg See_Comment [Automated message] (BEAKER) (test code = The sy stem which 614) generated this result transmitted ref erence range: 50-1,200 mOsm/kg. The reference range was not used to int erpret this result as normal/abnormal . Sodium, random [id number] 11:48:27 Test Item Value Reference Range Interpretation Comments Sodium Urine (test 82 meq/L code = 2955-3) SUE (test code = Reference Range: No SUE) NormalsOperator ID - ADMIN [facility] CenterUrea Nitrogen, random [id number] 11:48:27 Test Item Value Reference Range Interpretation Comments Urea Nitrogen, Ur 121 mg/dL (test code = 3095-7) SUE (test code = Reference Range: No SUE) NormalsOperator ID - ADMIN [facility] HospitalODIUM, RANDOM [id number] 11:48:27 Test Item Value Reference Range Interpretation Comments SODIUM URINE (BEAKER) (test code = 82 meq/L 243) Reference Range: No NormalsOperator ID - ADMINUREA NITROGEN, RANDOM URINE 2022-08-10 11:48:27 Test Item Value Reference Range Interpretation Comments UREA NITROGEN URINE (BEAKER) (test 121 mg/dL code = 538) Reference Range: No NormalsOperator ID - ADMINCreatinine, random [id number] 11:48:26 Test Item Value Reference Range Interpretation Comments Creatinine, Ur 20.9 mg/dL (test code = 2161-8) SUE (test code = Reference Range: No SEU) NormalsOperator ID - ADMIN [facility] CenterCREATININE, RANDOM [id number] 11:48:26 Test Item Value Reference Range Interpretation Comments CREATININE URINE (BEAKER) (test 20.9 mg/dL code = 375) Reference Range: No NormalsOperator ID - [facility] stain 2022-08-10 11:24:49 Test Item Value Reference Range Interpretation Comments Result (test code = No growth 6463-4) Gram Stain Result <1+ gram positive cocci (test code = 1123) in pairs [facility] culture + gram [id number] 11:24:49 Test Item Value Reference Range Interpretation Comments Result (test code = No growth 6463-4) Gram Stain Result <1+ gram positive cocci (test code = 1123) in pairs [facility] culture + gram [id number] 11:24:49 Test Item Value Reference Range Interpretation Comments Result (test code = No growth 6463-4) Gram Stain Result <1+ gram positive cocci (test code = 1123) in pairs [facility] culture + gram [id number] 11:24:49 Test Item Value Reference Range Interpretation Comments Result (test code = No growth 6463-4) Gram Stain Result <1+ gram positive cocci (test code = 1123) in pairs [facility] culture + gram [id number] 11:24:49 Test Item Value Reference Range Interpretation Comments Result (test code = No growth 6463-4) Gram Stain Result <1+ gram positive cocci (test code = 1123) in pairs [facility] culture + gram [id number] 11:24:49 Test Item Value Reference Range Interpretation Comments Result (test code = No growth 6463-4) Gram Stain Result <1+ gram positive cocci (test code = 1123) in pairs [facility] culture + gram [id number] 11:24:49 Test Item Value Reference Range Interpretation Comments Result (test code = No growth 6463-4) Gram Stain Result <1+ gram positive cocci (test code = 1123) in pairs [facility] culture + gram [id number] 11:24:49 Test Item Value Reference Range Interpretation Comments Result (test code = No growth 6463-4) Gram Stain Result <1+ gram positive cocci (test code = 1123) in pairs [facility] CenterWOUND CULTURE + GRAM [id number] 11:24:49 Test Item Value Reference Range Interpretation Comments CULTURE (BEAKER) (test No growth code = 1095) GRAM STAIN RESULT 4+ WBCs (BEAKER) (test code = 1123) GRAM STAIN RESULT <1+ gram positive cocci (BEAKER) (test code = in pairs 21243) T4, [id number] 11:12:44 Test Item Value Reference Range Interpretation Comments FREE T4 (BEAKER) (test code = 655) 1.25 ng/dL 0.70-1.48 Coil Assembler ID - AAHAMIDOSMOLALITY, [id number] 11:11:51 Test Item Value Reference Range Interpretation Comments OSMOLALITY, SERUM (BEAKER) (test 271 mOsm/kg 275-295 L code = 615) TSH/FREE T4 IF [id number] 10:36:27 Test Item Value Reference Range Interpretation Comments THYROID STIMULATING HORMONE 10.385 uIU/mL 0.350-4.940 H (BEAKER) (test code = 772) Coil Assembler ID - [id number] 10:30:32 Test Item Value Reference Range Interpretation Comments CORTISOL, TOTAL (BEAKER) (test 11.9 ug/dL 3.7-19.4 code = 2755) Coil Assembler ID - AAHAMIDCT, DRAINAGE, SOFT TISSUE FLUID [id number] 09:56:00Reason for exam:->tubo-ovarian abscess [facility] : 1975 Sex: [...] Whiteside Verified Date/Time: 08/10/2022 09:56:28 Reading Location: [address] Neuro Reading Room RADIOLOGIC GUIDANCE & INTERP/[id number] 09:56:00FINAL REPORT CT guided fluid aspiration Clinical [...] Whiteside Verified Date/Time: 08/10/2022 09:56:28 Reading Location: [address] Neuro [facility]/[id number] 09:56:00FINAL REPORT CT guided fluid aspiration Clinical [...] lower quadrant fluid collection. Signed: Nilo Whiteside MDRep[facility] Verified Date/Time: 08/10/2022 09:56:28 Reading Location: [address] Neuro Reading [facility]/[id number] 09:56:00FINAL REPORT CT guided fluid aspiration Clinical [...] Whiteside Verified Date/Time: 08/10/2022 09:56:28 Reading Location: [address] Neuro Reading [facility]/[id number] 09:56:00FINAL REPORT CT guided fluid aspiration Clinical [...] Whiteside Verified Date/Time: 08/10/2022 09:56:28 Reading Location: [address] Neuro Reading [facility]/[id number] 09:56:00FINAL REPORT CT guided fluid aspiration Clinical [...] Whiteside Verified Date/Time: 08/10/2022 09:56:28 Reading Location: [address] Reading [facility]/[id number] 09:56:00FINAL REPORT CT guided fluid aspiration Clinical [...] Whiteside Verified Date/Time: 08/10/2022 09:56:28 Reading Location: [address] Neuro Reading [facility]/[id number] 09:56:00FINAL REPORT CT guided fluid aspiration Clinical [...] Whiteside Verified Date/Time: 08/10/2022 09:56:28 Reading Location: [address] Neuro Reading Room [facility] HospitalTreadmill tolerance(Non-Nuclear Treadmill)2022-08-10 08:12:31 Protocol Name Lexiscan [...] PMConfirmed by Kelton Stapleton ([id number]) on 38:12:24 [facility] tolerance(Non- Nuclear Treadmill)2022-08-10 08:12:31Protocol Name Lexiscan [...] PMConfirmed by Kelton Stapleton ([id number]) on 38:12:24 [facility] tolerance(Non-Nuclear Treadmill)2022-08-10 08:12:31Protocol Name Lexiscan Time [...] by Kelton Stapleton ([id number]) on 08/10/2022 8:12:24 [facility] tolerance(Non-Nuclear Treadmill) 2022-08-10 08:12:31Protocol Name Lexiscan [...] PMConfirmed by Kelton Stapleton ([id number]) on 38:12:24 [facility]Tread[facility] tolerance(Non- Nuclear Treadmill)2022-08-10 08:12:31Protocol Name Lexiscan [...] PMConfirmed by Kelton Stapleton ([id number]) on 38:12:24 [facility] tolerance(Non-Nuclear Treadmill)2022-08-10 08:12:31Protocol Name Lexiscan Time [...] by Kelton Stapleton ([id number]) on 08/10/2022 8:12:24 [facility] tolerance(Non-Nuclear Treadmill) 2022-08-10 08:12:31Protocol Name Lexiscan [...] PMConfirmed by Kelton Stapleton ([id number]) on 38:12:24 [facility] HospitalBASI METABOLIC PANEL 2022-08-10 06:16:41 Test Item Value Reference Range [...] De scription 1092) sq m Result G1 Ceic l or high >=90 G2 Mildly decreased [...] not appl icable for dialysis patien ts Coil Assembler ID - ADMINSpecimen slightly [id number] 06:16:41 Test Item Value Reference Range Interpretation Comments MAGNESIUM (BEAKER) 1.9 mg/dL 1.6-2.6 Specimen slightly (test code = 627) hemolyzed Coil Assembler ID - ADMINCBC (HEMOGRAM ONLY)2022-08-10 05:54:45 Test [...] 0-0 CELLS (BEAKER) (test code = 413) [id number] 04:19:50 Test Item Value Reference Range Interpretation Comments MAGNESIUM (BEAKER) (test code = 1.3 mg/dL 1.6-2.6 L 627) Coil Assembler ID - MMBASIC METABOLIC [id number] 04:19:50 Test Item Value Reference Range Interpretation [...] not appl icable for dialysis patien ts Coil Assembler ID - MMSpecimen slightly ictericCBC (HEMOGRAM ONLY)2022-08-09 [...] (BEAKER) (test code = 413) BASIC METABOLIC [id number] 06:27:34 Test Item Value Reference Range Interpretation [...] not appl icable for dialysis patien ts Coil Assembler ID - DAMIÁN WSpecimen slightly ictericB-TYPE NATRIURETIC FACTOR (BNP) 2022-08-08 05:56:50 Test Item Value Reference Range Interpretation Comments B-TYPE NATRIURETIC PEPTIDE (BEAKER) 202 pg/mL 0-100 H (test code = 700) Coil Assembler ID - BSCBC (HEMOGRAM ONLY)2022-08-08 05:36:13 Test [...] (BEAKER) (test code = 413) BASIC METABOLIC [id number] 05:39:11 Test Item Value Reference Range Interpretation [...] (test code = 697) EGFR (BEAKER) 65 Interpretati on of eGFR (test code = [...] not appl icable for dialysis patien ts Coil Assembler ID - ADMINSpecimen slightly ictericCBC (HEMOGRAM ONLY)2022-08-07 [...] 0-0 (BEAKER) (test code = 413) CT, [id number] 07:32:00Unlisted Reason for Exam - Click Yes and Enter Reason Below->NoProtocol Please Specify:->Standard ProtocolWill this procedure require oral contrast?->No [facility] : 1975 Sex: [...] MDReport Verified Date/Time: 08/06/2022 07:32:46 Reading Location: [facility] Diagnostic Imaging Reading Room - [place] [address] CT ABDOMEN/PELVIS WITH IV CONTRAST Standard [id number] 07:32:00FINAL REPORT CT abdomen and pelvis with [...] in size from 07/30/2022. Signed: Kam Vigil [facility] Verified Date/Time: 08/06/2022 07:32:46 Reading Location: [facility] Diagnostic Imaging Reading Room - [place] [address] [facility] CONTRAST Standard [id number] 07:32:00FINAL REPORT CT abdomen and pelvis with [...] Verified Date/Time: 08/06/2022 07:32:46 Reading Loc ation: [facility] Diagnostic Imaging Reading Room - [facility] F[address] [facility] [address] ABDOMEN/PELVIS WITH IV CONTRAST Standard [id number] 07:32:00FINAL REPORT CT abdomen and pelvis with [...] Kam Vigil Verified Date/Time: 08/06/2022 07:32:46 Reading Loc ation: [facility] Diagnostic Imaging [facility] [address] [facility] [address] ABDOMEN/PELVIS WITH IV CONTRAST Standard [id number] 07:32:00FINAL REPORT CT abdomen and pelvis with [...] mild increase in size from 07/30/2022. Signed: Kma Vigil Verified Date/Time: 08/06/2022 07:32:46 Reading Loc ation: [facility] [address] [facility] [address] ABDOMEN/PELVIS WITH IV CONTRAST Standard [id number] 07:32:00FINAL REPORT CT abdomen and pelvis with [...] in size from 07/30/2022. Signed: Kam Vigil MDR[facility] Verified Date/Time: 08/06/2022 07:32:46 Reading Loc ation: [facility] Diagnostic [facility] [address] [facility] [address] ABDOMEN/PELVIS WITH IV CONTRAST Standard [id number] 07:32:00FINAL REPORT CT abdomen and pelvis with [...] Verified Date/Time: 08/06/2022 07:32:46 Reading Loc ation: [facility] Diagnostic Imaging Reading Room - [facility] F[address] [facility] [address] ABDOMEN/PELVIS WITH IV CONTRAST Standard [id number] 07:32:00FINAL REPORT CT abdomen and pelvis with [...] Verified Date/Time: 08/06/2022 07:32:46 Reading Loc ation: [facility] Diagnostic Imaging Reading Room - [facility] F[address] [facility] Screen, [id number] 21:59:05 Test Item Value Reference Range Interpretation Comments Preg Test, Ur (test code = 2112-1) Negative Negative Lab Interpretation (test code = Normal 51777-9) [facility] CenterPREGNANCY SCREEN, [id number] 21:59:05 Test Item Value Reference Range Interpretation [...] CONCENTRATION Adequate (CELLAVISION)(BEAKER) (test code = 3438) Coil Assembler ID - Salena comments: Slide comments:BASIC METABOLIC [...] not appl icable for dialysis patien ts Coil Assembler ID - ADMINSpecimen slightly ictericPROTHROMBIN TIME/[id number] 21:25:45 Test Item Value Reference Range Interpretation [...] mechanical heart valves.CBC W/PLT COUNT & AUTO [id number] 21:20:49 Test Item Value Reference Range Interpretation [...] (BEAKER) (test code = 413) Transthoracic echo [id number] 16:18:18Ejection FractionSLEH ECHO HEARTLAB [facility] [id number] 16:18:18Ejection FractionSLEH ECHO HEARTLAB [facility] HospitalTransthoracic echo [id number] 16:18:18Ejection FractionSLEH ECHO HEARTLAB [facility] HospitalTransthoracic echo result 2022-08-03 16:18:18Ejection FractionSLEH ECHO HEARTLAB [facility]CKPacific[facility] The ValleyTransthoracic echo [id number] 16:18:18Ejection FractionSLEH ECHO HEARTLAB [facility] Transthoracic echo [id number] 16:18:18Ejection FractionSLEH ECHO HEARTLAB MKCK[facility]ON [facility] CenterTransthoracic echo [id number] 16:18:18Ejection FractionSLEH ECHO HEARTLAB MKCK[facility]ON [facility] CenterTransthoracic echo [id number] 16:18:18Ejection FractionSLE ECHO HEARTLAB [facility] HospitalBASIC METABOLIC PANEL 2022-08-03 05:26:56 Test Item [...] not appl icable for dialysis patien ts Coil Assembler ID - MMSpecimen slightly ictericCBC (HEMOGRAM ONLY)2022-08-03 [...] CONCENTRATION Decreased (CELLAVISION)(BEAKER) (test code = 3438) Coil Assembler ID - Salena comments: Slide comments:CBC W/PLT COUNT & AUTO [id number] 14:52:12 Test Item Value Reference Range Interpretation [...] (BEAKER) (test code = 413) BASIC METABOLIC [id number] 13:40:34 Test Item Value Reference Range Interpretation [...] not appl icable for dialysis patien ts Coil Assembler ID - ADMINSpecimen moderately ictericMYOCARD IMAGING, MULTI, PHARM, [id number] 15:12:00Unlisted Reason for Exam - Click Yes and Enter Reason Below->NoCH[facility] Irineo : 1975 Sex: FFINAL REPORT PROCEDURE: MYOCARDIAL PERFUSION SPECT IMAGING (Rest/Stress)CPT CODE: 90433 INDICATION: Cardiac screening, high CAD risk CARDIOVASCULAR [...] Signed: Marilyn Cerna Verified Date/Time: 08/01/2022 15:12:23 NM myocardial perfusion SPECT, pharm(Lexiscan)2022-08-01 15:12:00FINAL REPORT PROCEDURE: MYOCARDIAL PERFUSION SPECT IMAGING (Rest/Stress)CPT CODE: 97558 INDICATION: Cardiac screening, high CAD risk CARDIOVASCULAR [...] no prior study for comparison. Signed: Marilyn Cernaort Verified Date/Time: 08/01/2022 15:12:23 [facility] myocardial perfusion SPECT, pharm(Lexiscan) 2022-08-01 15:12:00FINAL REPORT PROCEDURE: MYOCARDIAL PERFUSION SPECT IMAGING (Rest/Stress)CPT CODE: 47731 INDICATION: Cardiac screening, high CAD risk CARDIOVASCULAR [...] Marilyn Cerna MDReport Verified Date/Time: 08/01/2022 15:12:23 [facility] myocardial perfusion SPECT, pharm(Lexiscan) 2022-08-01 15:12:00FINAL REPORT PROCEDURE: MYOCARDIAL PERFUSION SPECT IMAGING (Rest/Stress)CPT CODE: 18572 INDICATION: Cardiac screening, high CAD risk CARDIOVASCULAR [...] Signed: Marilyn Cerna Verified Date/Time: 08/01/2022 15:12:23 [facility], pharm(Lexiscan) 2022-08-01 15:12:00FINAL REPORT PROCEDURE: MYOCARDIAL PERFUSION SPECT IMAGING (Rest/Stress)CPT CODE: 17440 INDICATION: Cardiac screening, high CAD risk CARDIOVASCULAR [...] prior study for comparison. Signed: Marilyn Cerna MDRepfreeman orth[facility] sports [facility] Verified Date/Time: 08/01/2022 15:12:23 [facility]NM myocardial perfusion SPECT, pharm(Lexiscan) 2022-08-01 15:12:00FINAL REPORT PROCEDURE: MYOCARDIAL PERFUSION SPECT IMAGING (Rest/Stress)CPT CODE: 77308 INDICATION: Cardiac screening, high CAD risk CARDIOVASCULAR [...] Marilyn Cerna MDReport Verified Date/Time: 08/01/2022 15:12:23 [facility](Lexiscan[facility] 2022-08-01 15:12:00FINAL REPORT PROCEDURE: MYOCARDIAL PERFUSION SPECT IMAGING (Rest/Stress)CPT CODE: 41477 INDICATION: Cardiac screening, high CAD risk CARDIOVASCULAR [...] Signed: Marilyn Cerna Verified Date/Time: 08/01/2022 15:12:23 [facility](Lexiscan) 2022-08-01 15:12:00FINAL REPORT PROCEDURE: MYOCARDIAL PERFUSION SPECT IMAGING (Rest/Stress)CPT CODE: 21742 INDICATION: Cardiac screening, high CAD risk CARDIOVASCULAR [...] Signed: Marilyn Cerna Verified Date/Time: 08/01/2022 15:12:23 [facility]HEMOGLOBIN [id number] 13:52:52 Test Item Value Reference Range Interpretation [...] 5.7- 6.4% indicates increased risk for diabetes (prediabetes)."Coil Assembler ID - ADM (CELLAVISION MANUAL DIFF)2022-08-01 08:26:35 [...] CONCENTRATION Decreased (CELLAVISION)(BEAKER) (test code = 3438) Coil Assembler ID - Remy Dato-onUser comments: Slide comments:CBC W/PLT COUNT & AUTO [id number] 08:26:34 Test Item Value Reference Range Interpretation [...] (BEAKER) (test code = 413) HCG, QUANTITATIVE, [id number] 05:48:18 Test Item Value Reference Range Interpretation Comments GONADOTROPIN, CHORIONIC (HCG) QUANT < mIU/mL 0-10 (BEAKER) (test code = 649) Non- Females: <10 mIU/mL Females: Gestation Age Reference Range(mIU/mL) 0.2-1 Week 5-50 1-2 Weeks 50-500 2-3 Weeks 100-5,000 3-4 Weeks 500-10,000 4-5 Weeks 1,000-50,000 5-6 Weeks 10,000-100,000 6-8 Weeks 15,000- 200,000 2-3 Months 10,000-100,000 Coil Assembler ID - FLASHBASIC METABOLIC PANEL 2022-08-01 05:41:39 Test Item Value [...] not appl icable for dialysis patien ts Coil Assembler ID - DAMIÁN WSpecimen moderately [id number] 05:41:38 Test Item Value Reference Range Interpretation Comments MAGNESIUM (BEAKER) (test code = 1.7 mg/dL 1.6-2.6 627) Coil Assembler ID - DAMIÁN [id number] 05:41:38 Test Item Value Reference Range Interpretation Comments PHOSPHORUS (BEAKER) (test code = 3.0 mg/dL 2.3-4.7 604) Coil Assembler ID - DAMIÁN WPT/AJEW5605-19-25 05:39:59 Test Item Value Reference Range Interpretation [...] 2.5-3.5 for patients with mechanical heart valves.LIPID [id number] 22:24:08 Test Item Value Reference Range Interpretation [...] Borderline 130-159 High 160-189 Very High >=190 Coil Assembler ID - [id number] ID - [id number] ID - [id number] slightly icteric U/S, ENDOVAGINAL (EV)2022-07-31 14:38:00Reason for exam:->[facility] 1975 Sex: [...] follow-up imaging with ultrasound. Signed: Shauna Duran [facility] Verified Date/Time: 07/31/2022 14:38:44 U/S, [id number] 14:38:00Reason for exam:->[facility] : 1975 Sex: [...] MDReport Verified Date/Time: 07/31/2022 14:38:44 U/S, DUPLEX, [id number] 14:38:00 [facility] 1975 [...] follow-up imaging with ultrasound. Signed: [facility] Verified Date/Time: 07/31/2022 14:38:44 gpwrwk9873-84-43 14:38:00FINAL REPORT TECHNIQUE: Transabdominal and transvaginal grayscale [...] follow-up imaging with ultrasound. Signed: Shauna Duran [facility] Verified Date/Time: 07/31/2022 14:38:44 [facility] irmaiba2597-37-70 14:38:00FINAL REPORT TECHNIQUE: Transabdominal and transvaginal grayscale [...] Signed: Shauna Duran Verified Date/Time: 07/31/2022 14:38:44 [facility] Bwiggqtmdti0564-15-29 14:38:00FINAL REPORT TECHNIQUE: Transabdominal and transvaginal grayscale [...] Signed: Shauna Duran Verified Date/Time: 07/31/2022 14:38:44 [facility] eeuzyv0497-20-59 14:38:00FINAL REPORT TECHNIQUE: Transabdominal and transvaginal grayscale [...] & sports medicine Verified Date/Time: 07/31/2022 14:38:44 [facility] uhxzuqh0279-87-64 14:38:00FINAL REPORT TECHNIQUE: Transabdominal and transvaginal grayscale [...] Duran MDReport Verified Date/Time: 07/31/2022 14:38:44 [facility] Kmcfjroghfy3254-01-78 14:38:00FINAL REPORT TECHNIQUE: Transabdominal and transvaginal grayscale [...] Signed: Shauna Duran Verified Date/Time: 07/31/2022 14:38:44 [facility] xwmcmh6814-04-97 14:38:00FINAL REPORT TECHNIQUE: Transabdominal and transvaginal grayscale [...] Signed: Shauna Duran Verified Date/Time: 07/31/2022 14:38:44 [facility] coieqxg9818-01-42 14:38:00FINAL REPORT TECHNIQUE: Transabdominal and transvaginal grayscale [...] follow-up imaging with ultrasound. Signed: Shauna Duran [facility] Verified Date/Time: 07/31/2022 14:38:44 [facility] Lkhtqjayeqa9719-44-12 14:38:00FINAL REPORT TECHNIQUE: Transabdominal and transvaginal grayscale [...] Signed: Shauna Duran Verified Date/Time: 07/31/2022 14:38:44 [facility] qqtukd0781-80-03 14:38:00FINAL REPORT TECHNIQUE: Transabdominal and transvaginal grayscale [...] Signed: Shauna Duran Verified Date/Time: 07/31/2022 14:38:44 [facility] tlbzcdi0423-41-36 14:38:00FINAL REPORT TECHNIQUE: Transabdominal and transvaginal grayscale [...] Shauna Duran MDRnorma Verified Date/Time: 07/31/2022 14:38:44 [facility] Alozlbwpfyr9637-35-22 14:38:00FINAL REPORT TECHNIQUE: Transabdominal and transvaginal grayscale [...] follow-up imaging with ultrasound. Signed: Shauna Duran [facility] Verified Date/Time: 07/31/2022 14:38:44 [facility] kyzbrd3790-32-57 14:38:00FINAL REPORT TECHNIQUE: Transabdominal and transvaginal grayscale [...] Signed: Shauna Duran Verified Date/Time: 07/31/2022 14:38:44 [facility] adscvrf3700-82-96 14:38:00FINAL REPORT TECHNIQUE: Transabdominal and transvaginal grayscale [...] Signed: Shauna Duran Verified Date/Time: 07/31/2022 14:38:44 [facility] Wnrdtxxeega0550-55-39 14:38:00FINAL REPORT TECHNIQUE: Transabdominal and transvaginal grayscale [...] follow-up imaging with ultrasound. Signed: Shauna Duran [facility] Verified Date/Time: 07/31/2022 14:38:44 [facility] dqosuw4841-59-24 14:38:00FINAL REPORT TECHNIQUE: Transabdominal and transvaginal grayscale [...] Duran MDReport Verified Date/Time: 07/31/2022 14:38:44 [facility] sicvcmr2148-61-15 14:38:00FINAL REPORT TECHNIQUE: Transabdominal and transvaginal grayscale [...] Kelly Shaunacandice Sanchez Verified Date/Time: 07/31/2022 14:38:44 [facility] Gupbaeqsfsk1425-94-28 14:38:00FINAL REPORT TECHNIQUE: Transabdominal and transvaginal grayscale [...] Signed: Shauna Duran Verified Date/Time: 07/31/2022 14:38:44 [facility] shpftd8615-25-57 14:38:00FINAL REPORT TECHNIQUE: Transabdominal and transvaginal grayscale [...] Duran MDReport Verified Date/Time: 07/31/2022 14:38:44 [facility] hxvrauk3912-44-11 14:38:00FINAL REPORT TECHNIQUE: Transabdominal and transvaginal grayscale [...] Signed: Shauna Duran Verified Date/Time: 07/31/2022 14:38:44 [facility] Kjgduogyied7834-83-49 14:38:00FINAL REPORT TECHNIQUE: Transabdominal and transvaginal grayscale [...] clinically, considercontinued follow-up imaging with ultrasound. Signed: Horn, Shauna MDReport Verified Date/Time: 07/31/2022 14:38:44 [facility] W/PLT COUNT & AUTO [id number] 03:57:39 Test Item Value Reference Range Interpretation [...] H PERCENT (BEAKER) (test code = 2801) [id number] 03:56:52 Test Item Value Reference Range Interpretation Comments MAGNESIUM (BEAKER) (test code = 1.5 mg/dL 1.5-3.0 627) Coil Assembler ID - [id number] ID - [id number] ID - [id number] ID - [id number] BASIC METABOLIC [id number] 03:55:31 Test Item Value Reference Range Interpretation [...] not appl icable for dialysis patien ts Coil Assembler ID - [id number] ID - [id number] ID - GYFP21Kwnuyosn ID - XEUS43Tilmtizw ID - MEMF58Xdrkavxa ID - LAEL68Gewxjsak ID - SJPY22Fmffncnr ID - SFAY84Dejzjcor ID - HVMO11Bqaudjor slightly rwrssiyXTRNTSPVQW4239-97-58 03:54:07 Test Item Value Reference Range Interpretation Comments PHOSPHORUS (BEAKER) (test code = 4.0 mg/dL 2.5-4.5 604) Coil Assembler ID - [id number] 18:37:08 Test Item Value Reference Range Interpretation Comments MAGNESIUM (BEAKER) (test code = 1.6 mg/dL 1.5-3.0 627) Coil Assembler ID - [id number] ID - [id number] ID - [id number] ID - [id number], CHEST, 1 VIEW, NON [id number] 16:51:00Reason for exam:->SOB, wheezingShould this be performed at the bedside?->Yes [facility] : 1975 Sex: [...] 16:51:52 Reading Location: [facility] Radiology Reading Room BASIC METABOLIC PANEL 2022-07-30 [...] not appl icable for dialysis patien ts Coil Assembler ID - [id number] ID - [id number] ID - HBMCF546Cmazaomo ID - YNQZV470Qplkstvv ID - TRWGI213Jkhuebpc ID - VKNBR730Xadkuizs ID - LVVJQ715Ybpvzmjp ID - YRGUD390Nqmgbvub ID - CUIWE653Bgwcjxaf ID - WXCLN052Yavsbhng ID - BIDKR003Japmpfoy ID - [id number] TIME/INR 2022-07-30 16:00:01 Test Item Value Reference [...] mechanical heart valves.CBC W/PLT COUNT & AUTO [id number] 15:52:31 Test Item Value Reference Range Interpretation [...] PERCENT (BEAKER) (test code = 2801) TISSUE [id number] 12:09:00Surgical Pathology Report Case: [id number] Authorizing Provider: Trudy James MD Collected: 02/17/2019 1126 Ordering Location: [address] Received: 02/17/2019 1147 Service Pathologist: Angela Beach MD Specimen: Gallbladder A. GALLBLADDER, CHOLECYSTECTOMY: - CHRONIC CHOLECYSTITIS WITH CHOLELITHIASIS. Signing Pathologist Direct Phone Line: [phone] signed by Angela Beach MD on 02/19/2019 at 12:09 [id number] renal mass Gallbladder Received in formalin labeled [...] and trabeculated. Thewall measures 0.2 cm thick. Material Processor sections are submitted in A1-A2, with the inked proximal margin is A1. PA/ew Performed.[facility], Department of Pathology, [address] [place] [address], [facility], Department of Pathology, [address] [place] [address], LwiqusK[facility], Department of Pathology, [address] [place] [address], PCR W/PLT COUNT & AUTO [id number] 07:03:00 Test Item Value Reference Range Interpretation [...] (BEAKER) (test code = 2801) BASIC METABOLIC [id number] 06:57:00 Test Item Value Reference Range Interpretation [...] APPLICABLE FOR DIALYSIS PATIEN TS. HEPATIC FUNCTION [id number] 06:57:00 Test Item Value Reference Range Interpretation [...] (test code = 347) hemolyzed HEPATIC FUNCTION [id number] 06:57:00 Test Item Value Reference Range Interpretation [...] 72 U/L 6-55 H 347) BASIC METABOLIC [id number] 06:57:00 Test Item Value Reference Range Interpretation [...] PATIEN TS. CBC W/PLT COUNT & AUTO [id number] 06:28:00 Test Item Value Reference Range Interpretation [...] PERCENT (BEAKER) (test code = 2801) SCREEN, [id number] 07:28:00 Test Item Value Reference Range Interpretation Comments TEST URINE (BEAKER) (test Negative code = 583) [id number] 07:28:00 Test Item Value Reference Range Interpretation Comments MAGNESIUM (BEAKER) 2.0 mg/dL 1.6-2.6 Specimen moderately (test code = 627) hemolyzed [id number] 07:28:00 Test Item Value Reference Range Interpretation Comments PHOSPHORUS (BEAKER) 4.0 mg/dL 2.3-4.7 Specimen moderately (test code = 604) hemolyzed BASIC METABOLIC [id number] 07:28:00 Test Item Value Reference Range Interpretation [...] APPLICABLE FOR DIALYSIS PATIEN TS. HEPATIC FUNCTION [id number] 07:28:00 Test Item Value Reference Range Interpretation [...] Specimen moderately (test code = 347) hemolyzed [id number] 07:28:00 Test Item Value Reference Range Interpretation Comments LIPASE (BEAKER) (test code = 749) 31 U/L 8-78 CBC W/PLT COUNT & AUTO [id number] 07:10:00 Test Item Value Reference Range Interpretation [...] (BEAKER) (test code = 2801) U/S, ABDOMINAL, [id number] 23:50:00Abdomen limited area? Add comment if clarification [...] or visualized choledocholithiasis. . Signed: [facility] Verified Date/Time: 02/15/2019 23:50:53 URINALYSIS W/ REFLEX URINE [id number] 22:43:00 Test Item Value Reference Range Interpretation [...] SOURCE(BEAKER) (test code = 2795) HEPATIC FUNCTION [id number] 17:03:00 Test Item Value Reference Range Interpretation [...] Specimen slightly (test code = 347) hemolyzed [id number] 16:00:00 Test Item Value Reference Range Interpretation Comments MAGNESIUM (BEAKER) 2.1 mg/dL 1.6-2.6 Specimen slightly (test code = 627) hemolyzed BASIC METABOLIC [id number] 16:00:00 Test Item Value Reference Range Interpretation [...] hemolyz ed (test code = 364) PROTHROMBIN TIME/[id number] 15:31:00 Test Item Value Reference Range Interpretation [...] is 2.5-3.5 for patients wiht mechanical heart valves.[id number] 15:31:00 Test Item Value Reference Range Interpretation Comments PARTIAL THROMBOPLASTIN TIME 31.4 seconds 22.5-36.0 (BEAKER) (test code = 760) CBC W/PLT COUNT & AUTO [id number] 15:14:00 Test Item Value Reference Range Interpretation [...] Consult Notes Date/Time Note Provider Source 2022-11-28 2356-04-02N20:23:09Associated Patrick Wallace OT [facility] 10:23:09 Order(s): CONSULT ADULT OCCUPATIONAL THERAPY OT GENERAL EVALUATIONConsult received via [employer], EMR reviewed and evaluation completed 11/28/22. Patient referred to occupational therapy for evaluation and treatment. Patient is 47 year old female with chest pain, NSTEMI. PMHx recent hemorrhagic stroke (10/29/22; hypertensive emergency in setting of methamphetamine use), CAD c/b unspecified PR (02/2022 per CareEverywhere), HFpEF, hypertension, hyperlipidemia, COPD, [...] and verbalizes understanding of teaching provided.Patrick Wallace OTRUniStephen[facility] of Rehabilitation ServicesTotal Timed Treatment [...] to enable patient to complete evaluation component. 57007-7Bmhstwv mycpEK2050-80-24I19:15:28Consult noteTXT1.2.840.782058.1.13.104.2.7.2 .633204|[id number] for patient winj50192-3Inkaghh oyptRI029382873Nbjjte C Lawas OT[address] Xbjr[id number] VRSZPSHPBQBKNFNRIILPAU6789-14-14J48: 15:281.2.840.080007.1.72.3.15|1.2.84 0.022794.1.13.104.2.7.2.727879_18983 89826 2022-11-28 6181-88-11M93:45:00Associated Savanna Juarez PT [facility] 09:45:00 Order(s): CONSULT ADULT PHYSICAL THERAPY [...] setting of methamphetamine use), CAD c/b unspecified PR (02/2022 per CareEverywhere), HFpEF, hypertension, hyperlipidemia, COPD, GERD, and seizure disorder (not on medications) presenting as a transfer from [facility] for NSTEMI. Troponin peaked at 1.34 [...] setting of methamphetamine use), CAD c/b unspecified PR (02/2022 per CareEverywhere), HFpEF, hypertension, hyperlipidemia, COPD, GERD, and seizure disorder (not on medications) presenting as a transfer from [facility] for NSTEMI. Troponin peaked at 1.34 [...] a SS house, and sisterDME: Wheel Chair m2Gtedf level of Mobility: requires assistance with transfers, [...] denies pain before and after sessionCOMMUNICATIONPrimary Language: Moldovan Able to Verbalize needs: Yes Vision:good; no [...] Time in Minutes: 33 minSavanna Juarez PT, DPTUnMemorial Hermann Memorial City Medical CenterRehabilitation Services A physical therapy evaluation [...] clinical presentation with unstable and unpredictable characteristics 27167-0Emkzdqq stcxLK1862-74-23P23:53:18Consult noteTXT1.2.840.496663.1.13.104.2.7.2 .333873|[id number] for patient xesd71486-7Qdppidg vgigAG375568868Rbpclb Larry PT[address] StreetVqyuOrrmkfvoeAgepufbdiKULC2545797625 DSSWCHOTYAOXTXNHSCWXQS3525-25-78V33: 53:181.2.840.061384.1.72.3.15|1.2.84 0.834871.1.13.104.2.7.2.727879_18983 75564 2022-11-25 1595-62-84W61:49:18Associated PN-NEUROLOGY [facility] 18:49:18 Order(s): CONSULT NEUROLOGY STROKE SERVICE [...] with Dr. Rivera, Neurology Faculty Stroke pager: [phone] Shahnaz Borges, MDPGY-4, NeurologyPager: [phone] signed by Romaine Rivera MD at 11/26/2022 [...] reported) and/or communicating results to the patient/family/caregiver. 41934-8Qsuzvmr jifyGS6337600Sdvqdrav, Hashem1.2.840.317946.1.13.104.2.7.2. 271232TbrudumnFgqtudFQ0202-90-50C03: 21:11Consult noteTXT1.2.840.287289.1.13.104.2.7.2 .754499|[id number] for patient gmmy41032-3Uwmkmvq ppxwIHHK-UNWSRUPDNEC-MMWWVNVAHOIQDBD03 [address]lier StreetTXTX7755577555 GLKIOWFMDARKZQTKSRGCIB3176-74-70F70: 21:111.2.840.444473.1.72.3.15|1.2.84 0.133770.1.13.104.2.7.2.727879_18956 78926 2022-11-25 8555-08-59T21:00:00Associated Analy Morris [facility] 18:00:00 Order(s): CONSULT PS PASTORAL Filippo CARE Glass Technician/Installer visited with patient in response to consult for pastoral care and support. Patient was awake and acknowledged corrosion prevention metal sprayer's presence. Pt was alone in room. The Pt said she was of Druze nicole. The PT. Expressed to the Glass Technician/Installer of some fear,about her upcomming surgery that going to be done on her heart.Pt asked the Glass Technician/Installer to pray for her and for God to give her peace. The Glass Technician/Installer provided spiritual support through prayer of healing, peace and comfort. Glass Technician/Installer provided pastoral presence, and validated feelings. Pastoral care will continue to follow up as needed. Rev.Analy Ferro [facility] Department of Pastoral CarePh: [phone]: [phone] 90700-1Xzuwdxc goupDG4678-51-45M10:31:33Consult noteTXT1.2.840.252885.1.13.104.2.7.2 .778271|[id number] for patient vntb95138-2Pvzdvbe qakyJG067336836Jrduhhg M [address] NrrnOlmapanbqGhlmslqnaSVXP2679484895 VQDZKUFEPDAFSDWEJJVRPH9857-31-48F92: 31:331.2.840.587570.1.72.3.15|1.2.84 0.834875.1.13.104.2.7.2.727879_18956 22671 2022-11-25 8839-71-36K20:53:13Associated PED-PEDIATRICS [facility] 10:53:13 Order(s): CONSULT ALLERGY ALLERGY & IMMUNOLOGY CONSULT NOTEDATE OF SERVICE: 11/25/22REASON FOR CONSULT: Aspirin allergyHPI: Patient is a 47 year old female with a past medical history significant for recent hemorrhagic stroke (10/29/22; hypertensive emergency in setting of methamphetamine use), CAD c/b unspecified PR (02/2022 per CareEverywhere), HFpEF, hypertension, hyperlipidemia, Asthma/COPD, [...] significant pericardial effusion, no significant valvular pathologyAPTT Wpgklrm86 - 36 Seconds >150 High Panic 81 High ASSESSMENT / PLAN / RECOMMENDATIONS:Geetha Minor is a 47 year old female w/:a past medical history significant for recent hemorrhagic stroke (10/29/22; hypertensive emergency in setting of methamphetamine use), CAD c/b unspecified PR (02/2022 per CareEverywhere), HFpEF, hypertension, hyperlipidemia, Asthma/COPD, [...] patient. - Plan also explained to via bahraini translatorPatient seen with Dr. Magaña. Thank you for this consult. We will continue to follow the patient peripherally. Please do not hesitate to reach out to the on-call fellow with additional questions or concerns. Bere Arroyo, [facility]ICKS[facility]Gllergy and Immunology Fellow, PGY-4 ssociated attestation - [...] see the fellow's note for additional details. 10197-4Skakfal owblNI1840440Krbj, Sarah1.2.840.878689.1.13.104.2.7.2.8 62184NjzgXluwfBK2797-62-32R23:58:19C onsult noteTXT1.2.840.892212.1.13.104.2.7.2 .083949|[id number] for patient wqtw74659-3Ccslkeu bwuwYRKTU-RHSSUQYOCANEH-OZSOGGRAMMYU [address] MelyOrrgmdkwhBcujobwquPQLI6861206420 PKDBNEJAECIUJKIYREKZLC2706-66-73H97: 58:191.2.840.700348.1.72.3.15|1.2.84 0.522164.1.13.104.2.7.2.727879_18954 17538 2022-11-24 8618-38-32I59:08:12Associated NS-NEUROLOGICAL [facility] 16:08:12 Order(s): CONSULT SURGERY NEUROSURGERY NEUROSURGERY CONSULTATION HISTORY AND PHYSICALAttending Neurosurgeon: Dr. 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), CAD c/b unspecified PR (02/2022 per CareEverywhere), HFpEF, hypertension, hyperlipidemia, COPD, GERD, and seizure disorder (not on medications) presenting as a transfer from [facility] for NSTEMI currently on heparin drip. [...] 100% 100% Weight: Height: Awake, alert, oriented m2AORDM bilaterally at 3mmEOMI bilaterallySlight left lower facial [...] setting of methamphetamine use), CAD c/b unspecified PR (02/2022 per CareEverywhere), HFpEF, hypertension, hyperlipidemia, COPD, GERD, and seizure disorder (not on medications) presenting as a transfer from [facility] for NSTEMI currently on heparin drip. NSGY consulted for recs regarding heparin in light of recent hemorrhagic stroke. Pt at neurologic baseline s/p stroke.Recommendations:No neurosurgical interventionPlease consult neurology for management and recommendations of anticoagulation w/ hx of hemorrhagic strokeWill sign off at this timeChrismariangel White MDNeurosurgery ServiceFor inquiries please page [phone] signed by Butron Howell MD at 11/25/2022 12:23 PM CDTAssociated attestation - Burton Howell MD - 11/25/2022 12:23 PM CDT I personally evaluated and am primary in decision making on, Geetha Minor, and I agree with the documentation by Sinan White MD,neurosurgery resident.21746-1Wstsyfu ikytRC4388066Gpxgbb, Rudy P1.2.840.492390.1.13.104.2.7.2.80953 9IxakhqOpujQEB3366-84-95M99:23:14Con [facility] noteTXT1.2.840.569358.1.13.104.2.7.2 .214519|[id number] for patient cgwm37028-3Sgqlykr noteLNNS-NEUROLOGICAL SURGERYNS-NEUROLOGICAL SURGERYCOMMUNITY HOSP[facility] - [address] Gu[id number] JPBRVTOEOYYVSVRWZTGIZY1509-98-75C71: 23:141.2.840.244640.1.72.3.15|1.2.84 0.192945.1.13.104.2.7.2.727879_18954 68027 History and Physical Notes Date/Time Note Provider Source 2022-11-24 11:33:08 8552-63-97F92:33:08Formatting of this note [facility] is different from the original.Images from the original note were not included.CCU History and Physical Date of Service: 11/24/2022 15:48 ICU day: Intubation Day: CHIEF COMPLAINT: Chest painHistory of Present IllnessGeetha Minor is a 47 year old female with a past medical history significant for recent hemorrhagic stroke (10/29/22; hypertensive emergency in setting of methamphetamine use), CAD c/b unspecified PR (02/2022 per CareEverywhere), HFpEF, hypertension, hyperlipidemia, COPD, GERD, and seizure disorder (not on medications) presenting as a transfer from [facility] for NSTEMI. On my interview, patient [...] for amphetamines during her recent hospitalization.Workup at [facility] showed ST depression and TWI in [...] 454 ms QTC Calculation(Bazett) 460 ms P [place] 19 degrees R [place] 64 degrees T [place] 254 degrees Normal sinus rhythm Possible Left [...] sedated at OSH prior to transfer to [facility] NICU, extubated on 10/30, required nicardipine [...] develop- Sedation/Analgesia: NoneRespCOPDHx tobacco abuse- DuoNebs prn- G0AYUcdvuhrlxpztscXFOZOPScyrm painReported CAD HFpEFBradycardiaHTNHLDPatient presenting as a transfer from [facility] with NSTEMI. Troponin elevated here on [...] prophylaxis: heparinLines/Catheters:Peripheral IV 11/24/22 Right Antecubital Inserted MECHANICAL EQUIPMENT SALES ENGINEER (Active) Number of days: 0 Dispo: CCUPrognosis: [...] referrals and/or communicating with other health healthcare management consultant (when not separately reported), documenting clinical information in the electronic or other health record, and care coordination (not separately reported).- hemodynamically stable- Neurosurgery consult for systemic AC / DAPT in the future, given h/o ICH- allergy consult for ASA desensitizationJOSE Cierra GONZALEZ MD, [facility] [place], [facility] CAMPUSAAssistant ProfessorCardiology, Advanced Heart Failure, LVAD & Transplant ServiceDate of service: [id number] and physical [id number]-Zxzipmfe, Jose C1.2.840.896921.1.13.104.2.7.2.226152Ehedl vehbz-NzafojllWeteFVA7173-60-10T15:30:41Hi story and physical noteTXT1.2.840.859717.1.13.104.2.7.2.17556 9|[id number] for patient ovid38385-0Olskeco and physical noteLN[address] StreetTXTX[address]5577555USUSGA SCETNGTRADJYBZTM1780-46-63U75:30:411.2.840 .971447.1.72.3.15|1.2.840.799775.1.13.104. 2.7.2.727879_[id number] Notes Date/Time Note Provider Source 2022-11-29 13:58:46 3483-13-34D11:58:46Formatting Desi hernandez CURTAIN CUTTER HAND [facility] of this note is different from the original.2nd call no contact. 58653-9Pnybvcwya encounter OmkoCU9191-86-42T67:58:57Teleph one encounter NoteTXT1.2.840.706352.1.13.104. 2.7.2.522301|[id number] ble for patient bqjp05753-4EadxCX390304400Puecz kellie Sotelo [address]TXTX[address] 64102UJPVETDWPAFXSXBJRCVSTQ4513 -09-14T13:58:571.2.840.976924.1 .72.3.15|1.2.840.764321.1.13.10 4.2.7.2.727879_[id number] 2022-11-29 12:58:12 9592-55-27V37:58:12Formatting [facility] of this note might be different from the original.TRANSITIONAL CARE MANAGEMENT ASSESSMENT11/29/2022 Geetha MinorIltowbhz754201UXcszfel Martinez is a 47 year old /White female was admitted on 11/24/[address] She was discharged on 11/28/22 with discharge disposition of HR- Routine Discharge.Admitting Physician: Ryne Yoder FDischarge Diagnosis: NSTEMI (non-ST elevated myocardial infarction) [I21.4]No contact.No linked episodesTCM Zbh-bnzd-ug-face outreach documentation: Future Appointments: 76790-3Uavkogpys encounter KmexWV4800-68-94R58:58:44Teleph one encounter NoteTXT1.2.840.721746.1.13.104. 2.7.2.278331|[id number] [facility] daij15732-3EuymCXWHFFSLDB[address]vdGalvestonGalvestonTXTX[address] 98336CAFQHUDJYHSYIGTQLIXQGS4808 -09-14T12:58:441.2.840.655929.1 .72.3.15|1.2.840.298794.1.13.10 4.2.7.2.727879_[id number] 2022-11-28 16:51:33 0169-11-27S42:51:33Formatting Sylviacamilla Abad [facility] of this note might be different RN [...] of new skin breakdownOutcome: Adequate for discharge 55992-0Xbke of care dfzkKY8391-52-31M99:51:41Plan of care noteTXT1.2.840.795767.1.13.104. 2.7.2.168140|[id number] [facility] orga06623-8HvfkYU093050251Yazaj feroz Iniguez RN[address]vdGalvestonGalvestonTXTX[address] 86334SSUAKITVKJGYPBTITBBJGC7832 -09-13T16:51:411.2.840.874519.1 .72.3.15|1.2.840.692765.1.13.10 4.2.7.2.727879_[id number] 2022-11-28 01:14:27 5765-80-66Y12:14:27Formatting Trang K Ulises vaughn [facility] of this note might be different [...] of new skin breakdownOutcome: Progressing as expected 75217-1Bcob of care rkppHP2729-43-18I41:14:30Plan of care noteTXT1.2.840.098869.1.13.104. 2.7.2.105469|[id number] [facility] rvsq94745-3MgagKH129253574Xvpne anders Morton RNUT[address]vdGalvestonGalvestonTXTX[address] 40710WKBXBXYXTYAFWUWYUZJOBO4843 -09-13T01:14:301.2.840.811771.1 .72.3.15|1.2.840.283759.1.13.10 4.2.7.2.727879_[id number] 2022-11-27 06:31:47 6407-89-30V96:31:47Formatting Laisha Bartlett RN [facility] of this note might be different [...] of new skin breakdownOutcome: Progressing as expected 71937-4Vbpp of care rwmvXY9489-00-68K32:31:49Plan of care noteTXT1.2.840.004739.1.13.104. 2.7.2.171569|[id number] [facility] tzam27201-6AzfsLM622680220Zbkt N. Au RNUT[address] StreetTXTX[address] 27951ADRYDZTUWGPGGISVWITAWO1553 -09-12T06:31:491.2.840.198193.1 .72.3.15|1.2.840.241573.1.13.10 4.2.7.2.727879_[id number] 2022-11-26 21:20:10 3145-96-79M18:20:10Formatting Angelia Cardenas RN [facility] of this note might be different [...] Reduction in pain sensationOutcome: Progressing as expected 20622-1Szil of care zilnTB5428-79-39P83:20:13Plan of care noteTXT1.2.840.834014.1.13.104. 2.7.2.316679|[id number] ble for patient ibwp64646-3SzzhMS284021010Xpedu y D Burns RN[address] StreetTXTX[address] 31033PGZSWQCNAUTNIYNEOKBBPO6617 -09-11T21:20:131.2.840.866491.1 .72.3.15|1.2.840.043207.1.13.10 4.2.7.2.727879_[id number] 2022-11-26 17:36:46 1129-69-17S88:36:46Formatting Sushma Velazquez RN [facility] of this note might be different [...] Reduction in pain sensationOutcome: Progressing as expected 81590-7Qgps of care iitmVS2552-31-96K59:36:51Plan of care noteTXT1.2.840.210519.1.13.104. 2.7.2.719940|[id number] ble for patient xtgl60021-4KsuwHW779582958Runzf a D Cantu RN[address]TXTX[address] 47270TDECTSPHNYWYQZZXREVRFP2589 -09-11T17:36:511.2.840.315467.1 .72.3.15|1.2.840.421768.1.13.10 4.2.7.2.727879_[id number] 2022-11-25 23:27:36 8183-13-64Z02:27:36Formatting Chuyita Marcial jarrod [facility] of this note might be different RN from the original.Problem: Falls, Risk ofGoal: Absence of fallsOutcome: Progressing as expected Problem: PainGoal: Control of pain at or below patient's documented comfort goalOutcome: Progressing as expected 00999-9Xcnm of care yucoCT9870-61-00Q18:27:40Plan of care noteTXT1.2.840.216161.1.13.104. 2.7.2.702533|[id number] [facility] poce15446-8NytiHS891965350Rpfgz jorje Rosen [address]TXTX[address] 78428GMGOGJPNVJDVWBUIDMAUKC8206 -09-10T23:27:401.2.840.555401.1 .72.3.15|1.2.840.017647.1.13.10 4.2.7.2.727879_[id number] 2022-11-25 17:36:51 8826-57-30O83:36:51Formatting Angelia causey RN [facility] of this note might be different [...] of medication managementOutcome: Not progressing as expected 18643-2Nzch of care kwyxZX6811-30-88F03:36:56Plan of care noteTXT1.2.840.450473.1.13.104. 2.7.2.915785|[id number] [facility] wiaw54915-3JyfcEI887005892Rkxhy candice Cabello Murali RNCANDICEMBUT - [address] WpluHktjknfbqMqnjwozguDBAF[address] 80748VLQTUNURBMINPWPPTVLRUY6200 -09-10T17:36:561.2.840.359985.1 .72.3.15|1.2.840.628683.1.13.10 4.2.7.2.727879_[id number] 2022-07-30 20:59:40 47446113116207-57-17S81:59:40 YAIMA GOMEZ [facility] CONSULTATIONGEETHA MINORFACILITY: [facility] #: [id number] Room: [address] [place] [address] #: [id number] : 1975DATE OF ADMISSION: 3DATE OF CONSULTATION: 07/30/2022REQUESTING PHYSICIAN:CANNING MACHINE OPERATOR: Yaima Gomez, [facility] [place]ultation is with lower quadrant pain, possible tubo-ovarianabscesses.HISTORY OF PRESENT ILLNESS: 47-year-old female with history ofpain, left lower quadrant that began three days ago, was at [facility] and transferred here this morning. Thought [...] this. Leukocytosis. 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 We will follow with you.JDF/MODLDD: 07/30/2022 17:17:10DT: 07/30/2022 20:59:40Job #: [id number] signed by: YAIMA GOMEZ at 2022-07-30 17:17:10.595KEBqaofuxldooc7987- 05-15T20:59:906026-98-48Y63:29: [id number], JTPMWFCVBULKWQEDQBFWI7626-35-67 T11:29:34
[2023-02-17] MEDS ORDERED: ACETAMINOPHEN 325 MG TABLET ONE (09:17)
--- NOTE | 2023-02-17 10:38 | ER ---
Nurse's Notes [facility] Name: Geetha Khan Age: 47 yrs Sex: Female : 1975 Arrival Date: 02/17/2023 Time: 08:55 Bed 5 Private MD: Diagnosis: Contusion of right shoulder Presentation: 02/17 08:58 Chief complaint: EMS states: "toned out for rolling out of bed last night, landing on mb9 right shoulder and has pain. Pt did not hit head, no LOC, and does not take blood thinners. No bruising or deformity noted to right shoulder.". Coronavirus screen: Vaccine status: Patient reports being unvaccinated. Ebola Screen: No symptoms or risks identified at this time. Initial Sepsis Screen: Does the patient meet any 2 criteria? No. Patient's initial sepsis screen is negative. Does the patient have a suspected source of infection? No. Patient's initial sepsis screen is negative. Risk Assessment: Do you want to hurt yourself or someone else? Patient reports no desire to harm self or others. Onset of symptoms was February 17, 2023. 08:58 Method Of Arrival: EMS: [facility] mb9 08:58 Acuity: CORRINA 4 mb9 Triage Assessment: 09:00 General: Appears in no apparent distress. Behavior is calm, cooperative, appropriate mb9 for age. Pain: Complains of pain in right shoulder Pain does not radiate. Pain currently is 10 out of 10 on a pain scale. Quality of pain is described as throbbing, Pain began suddenly. EENT: No signs and/or symptoms were reported regarding the EENT system. Neuro: Mullen Agitation-Sedation Scale (RASS): 0 - Alert and Calm Level of Consciousness is awake, alert, obeys commands, Oriented to person, place, time, situation, Appropriate for age. Cardiovascular: Patient's skin is warm and dry. Respiratory: Airway is patent Respiratory effort is even, unlabored, Respiratory pattern is regular, symmetrical. GI: No signs and/or symptoms were reported involving the gastrointestinal system. : No signs and/or symptoms were reported regarding the genitourinary system. Derm: Skin is pink, warm \\T\\ dry. Musculoskeletal: Range of motion: intact in all extremities. 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 - Social history:: Smoking status: Patient reports the use of cigarette tobacco products, smokes one-half pack cigarettes per day. Screenin:01 [facility] ED Fall Risk Assessment (Adult) History of falling in the last 3 months, mb9 including since admission Yes- fall prone (multiple falls) (3 pts) Confusion or Disorientation No (0 pts) Intoxicated or Sedated No (0 pts) Impaired Gait Yes (1 pt) Mobility Assist Device Used Yes (1 pt) Altered Elimination No (0 pt) Score/Fall Risk Level 3 or more points = High Risk Oriented to surroundings, Maintained a safe environment, Educated pt \\T\\ family on fall prevention, incl call for assistance when getting out of bed. Abuse screen: Denies threats or abuse. Nutritional screening: No deficits noted. Tuberculosis screening: No symptoms or risk factors identified. Assessment: 10:14 Reassessment: No changes from previously documented assessment. Patient and/or family mb9 updated on plan of care and expected duration. Pain level reassessed. Patient is alert, oriented x 3, equal unlabored respirations, skin warm/dry/pink. 10:47 Reassessment: Patient appears in no apparent distress at this time. No changes from mb9 previously documented assessment. Patient and/or family updated on plan of care and expected duration. Pain level reassessed. Patient is alert, oriented x 3, equal unlabored respirations, skin warm/dry/pink. 10:48 Reassessment: Discharge pending ride home. Called pts and he states he will be mb9 here in 10-20 minutes. Vital Signs: 08:58 BP 130 / 80; Pulse 88; Resp 18; Temp 98.1; Pulse Ox 100% ; Weight 65.77 kg; Height 5 mb9 ft. 2 in. ; Pain 10/10; 10:48 BP 128 / 86; Pulse 84; Resp 16; Pulse Ox 99% on R/A; mb9 08:58 Body Mass Index 26.52 (65.77 kg, 157.48 cm) mb9 08:58 Pain Scale: Adult mb9 ED Course: 08:57 Patient arrived in ED. 08:57 Bia Posey FNP is [facility] 08:57 Michael Grimm MD is Attending Physician. 08:58 Clair Jorge, RN is Primary Nurse. mb9 09:00 Triage completed. mb9 09:00 Arm band placed on. mb9 09:01 Placed in gown. Bed in low position. Call light in reach. Side rails up X 1. Client mb9 placed on continuous cardiac and pulse oximetry monitoring. NIBP monitoring applied. 09:01 No provider procedures requiring assistance completed. mb9 10:14 Patient did not have IV access during this emergency room visit. mb9 10:24 Shoulder Right (2 View) XRAY In Process Unspecified. EDMS Administered Medications: 09:06 Drug: Acetaminophen PO 650 mg PO once Route: PO; mb9 10:14 Follow up: Response: No adverse reaction mb9 Medication: 09:01 VIS not applicable for this client. mb9 Outcome: 10:38 Discharge ordered by . jh7 10:48 Discharged to home via wheelchair, with family, mb9 10:48 Condition: stable 10:48 Discharge instructions given to patient, family, Instructed on discharge instructions, follow up and referral plans. Demonstrated understanding of instructions, follow-up care, 11:08 Patient left the ED. mb9 Signatures: Dispatcher [employer] EDMS Sharona Faith Bia Posey FNP PAY STATION COLLECTOR [facility] Clair Jorge, RN RN mb9
--- NOTE | 2023-02-17 10:38 | EDPHYS ---
Physician Documentation [facility] Name: Geetha Khan Age: 47 yrs Sex: Female : 1975 Arrival Date: 02/17/2023 Time: 08:55 Bed 5 Private MD: ED Physician Michael Grimm HPI: 02/17 09:00 This 47 yrs old Female presents to ER via EMS with complaints of R shoulder pain. jh7 09:00 The patient or guardian complains of pain, that is acute. right shoulder. Context: The jh7 problem was sustained at home, resulted from a fall, out of bed, The patient experiences decreased range of motion, when attempts to raise arm, The patient reports no obvious deformity. Onset: The symptoms/episode began/occurred acutely. Associated signs and symptoms: The patient has no apparent associated signs or symptoms. 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 - Social history:: Smoking status: Patient reports the use of cigarette tobacco products, smokes one-half pack cigarettes per day. ROS: 09:00 Constitutional: Negative for fever, chills, and weight loss, Eyes: Negative for injury, jh7 pain, redness, and discharge, ENT: Negative for injury, pain, and discharge, Neck: Negative for injury, pain, and swelling, Cardiovascular: Negative for chest pain, palpitations, and edema, Respiratory: Negative for shortness of breath, cough, wheezing, and pleuritic chest pain, Back: Negative for injury and pain, Skin: Negative for injury, rash, and discoloration, Neuro: Negative for headache, weakness, numbness, tingling, and seizure, 09:00 MS/extremity: Positive for pain, of the right shoulder, 09:00 All other systems are negative, Exam: 09:00 Constitutional: This is a well developed, well nourished patient who is awake, alert, jh7 and in no acute distress. Head/Face: Normocephalic, atraumatic. Neck: Trachea midline, no thyromegaly or masses palpated, and no cervical lymphadenopathy. Supple, full range of motion without nuchal rigidity, or vertebral point tenderness. No Meningismus. Cardiovascular: Regular rate and rhythm with a normal S1 and S2. No gallops, murmurs, or rubs. Normal PMI, no JVD. No pulse deficits. Respiratory: Lungs have equal breath sounds bilaterally, clear to auscultation and percussion. No rales, rhonchi or wheezes noted. No increased work of breathing, no retractions or nasal flaring. Back: No spinal tenderness. No costovertebral tenderness. Full range of motion. Skin: Warm, dry with normal turgor. Normal color with no rashes, no lesions, and no evidence of cellulitis. Neuro: Awake and alert, GCS 15, oriented to person, place, time, and situation. Sensory grossly intact. Normal gait. 09:00 Musculoskeletal/extremity: Extremities: noted in the right shoulder: pain, posterior shoulder pain worsening with movement/palpation, ROM: limited active range of motion due to pain, in the right shoulder, Circulation is intact in all extremities. Perfusion: the extremity is normally perfused throughout, pink, warm, with brisk capillary refill, Sensation intact. Vital Signs: 08:58 BP 130 / 80; Pulse 88; Resp 18; Temp 98.1; Pulse Ox 100% ; Weight 65.77 kg; Height 5 mb9 ft. 2 in. ; Pain 10/10; 10:48 BP 128 / 86; Pulse 84; Resp 16; Pulse Ox 99% on R/A; mb9 08:58 Body Mass Index 26.52 (65.77 kg, 157.48 cm) mb9 08:58 Pain Scale: Adult mb9 MDM: 08:57 Patient medically screened. [facility] 10:42 Differential diagnosis: Anterior dislocation with fracture, Anterior dislocation jh7 without fracture, tendonitis, Contusion, sprain. Data reviewed: vital signs, nurses notes, radiologic studies, plain films. I considered the following discharge prescriptions or medication management in the emergency department Medications were administered in the Emergency Department. See MAR. Care significantly affected by the following chronic conditions: Hypertension. Counseling: I had a detailed discussion with the patient and/or guardian regarding the historical points, exam findings, and any diagnostic results supporting the discharge/admit diagnosis, to return to the emergency department if symptoms worsen or persist or if there are any questions or concerns that arise at home. Response to treatment: the patient's symptoms have mildly improved after treatment. 02/17 09:01 Order name: Shoulder Right (2 View) XRAY; Complete Time: 10:41 [facility] Administered Medications: 09:06 Drug: Acetaminophen PO 650 mg PO once Route: PO; mb9 10:14 Follow up: Response: No adverse reaction 9 Disposition Summary: 02/17/23 10:38 Discharge Ordered Notes: Location: Home [facility] Problem: new [facility] Symptoms: have improved [facility] Condition: Stable [facility] Diagnosis - Contusion of right shoulder [facility] Followup: [facility] - With: Private Physician - When: 2 - 3 days - Reason: Recheck today's complaints Discharge Instructions: - Discharge Summary Sheet [facility] - Contusion [facility] - Shoulder Pain [facility] Forms: - Medication Reconciliation Form [facility] - Thank You Letter [facility] - Patient Portal Instructions [facility] - Leadership Thank You Letter [facility] Signatures: Dispatcher [employer] Bia Fleming, SUPERVISOR POWDER AND PRIMER CANNING SUPERVISOR P[employer]ER [employer]NING [facility] Clair Jorge, RN RN mb9
--- NOTE | 2023-02-17 10:40 | RAD REPORT ---
EXAM DESCRIPTION: RAD - Shoulder Right 2 View - 02/17/2023 10:22 am CLINICAL HISTORY: Right shoulder pain FINDINGS: No fracture seen. On one view there is question of an anterior humeral dislocation. It topher ears normal on the other view and probably is positional rather than pathologic. Axillary view of the right shoulder could be obtained for confirmation. Osteoporosis. No additional bone or joint abnormality noted
[2023-02-17 11:43] VITALS: TEMP 98.1
[2023-02-17 11:44] VITALS: BP 128/86; O2SAT 99
--- NOTE | 2023-02-19 13:40 | EKG ---
Test Date: 2023-02-16 Test Time: 10:51:34 Paginator: TRISTAN MEASUREMENT RESULTS: Intervals: Rate: 89 CT: 198 QRSD: 92 QT: 366 QTc: 445 [place]: P: 68 CT: 198 QRS: 5 T: 163 INTERPRETIVE STATEMENTS: Normal sinus rhythm Right atrial enlargement Left ventricular hypertrophy with repolarization abnormality Abnormal ECG Compared to ECG 02/13/2023 10:32:23 No significant changes Electronically Signed On 02-19-23 13:30:30 MANAGER MASSAGE DEPARTMENT by Josse Olson
== END 2023-02-17 11:08 | disposition home or self-care (01) ==
LOC: ER 08:55
DX: S40.011A Contusion of right shoulder, initial encounter (principal)
CPT/HCPCS: 93005; 99284

== ENCOUNTER 2023-02-18 09:43 | Emergency (ER) | payer SELFPAY ==
--- OUTSIDE RECORDS SUMMARY | 2023-02-18 09:59 | XMS REPORT | Continuity of Care Document ---
:1975 Author Organization [facility] t Address [address] [facility] [address] [place] [address] Care Team Providers Name Role Phone Pcp, Patient Does Not Have A Primary Care Physician [phone] MIR ARITA Attending Clinician Unavailable JUJU TAI Attending Clinician Unavailable AKTHY ZEPEDA Attending Clinician Unavailable MURRAY ELISE Attending Clinician Unavailable Caty Wang Attending Clinician Unavailable Doctor Unassigned, [place] Attending Clinician Unavailable Desi Sotelo LVN Attending Clinician Zohaib Parsons MD Attending Clinician [phone] Ryne Yoder MD Attending Clinician Meghana Felix MD Attending Clinician RYNE YODER Attending Clinician Unavailable GOYO HANKINS Attending Clinician Unavailable Santiago Whiteside MD Attending Clinician [phone] Kathy Zepeda MD Attending Clinician Unavailable Bessy Shah MD Attending Clinician Juju Tai DO Attending Clinician Sonido ECHEVERRIA, Amanda Tejada Attending Clinician [phone] Juan J ECHEVERRIA, Mir Meeks Attending Clinician Merchant ECHEVERRIA, Goyo Attending Clinician Jason DYER, Murray Attending Clinician Vijay Jenkins Attending Clinician KRISTIN SHAH Attending Clinician Unavailable Fredis ECHEVERRIA, Popeye In Attending Clinician Fredrick ECHEVERRIA, Aida Barreto Attending Clinician [phone] Yariel ECHEVERRIA, Clifton Negro Attending Clinician [phone] Debra ECHEVERRIA, Kristin Cano Attending Clinician [phone] CLIFTON DE LUNA Attending Clinician Unavailable Servando ECHEVERRIA, Les Attending Clinician Nena Waller MD Attending Clinician Matias ECHEVERRIA, Leonid Orr Attending Clinician DAYRON FOSTER Attending Clinician Unavailable Cristian ECHEVERRIA, Dayron Hogan Attending Clinician [phone] ZAIN SALAS Attending Clinician Unavailable AMANDA [...] Iqra kes y failure y failure 00:00: [facility] with with 00 Center hypoxia hypoxia [...] nce 5-16 [facility] 00:00: Medical 00 [place] Pelvic Pelvic Disease Active [facility] abscess [...] disorder nce [facility] 00:[facility] Medical 00 Center Anemia Anemia [...] ents Source Name Type Date Date Clinician Christ Schulte Active Unknown - 2022-0 Uni vers it ty to See comments 11-26 ity of adverse 00:00: [place] reaction 00 Medical s Branch CRANBERR DRUG Active Unknown-Cmnt 3-0 Un yoana Y INGREDI 11-26 ity of [...] Date Stop Date Quantity Comments Source History [facility] Alcohol Std Drinks Medica l Center History [facility] Alcohol Comment Medical C enter History [facility] Transport Non-Med Medical Center Sexual orientation [facility] Gender identity [facility]it y of [facility] Cigarettes smoked 2022-11-24 2022-11-24 Univers ity of current (pack per 00:00:00 00:00:00 [facility] ) - Reported Branch Cigarette 2022-11-24 2022-11-24 University of pack-years 00:00:00 00:00:00 [facility] Tobacco use and 2022-11-24 2022-11-24 Smokeless Universit y of exposure 00:00:00 00:00:00 tobacco non-user [facility] 2022-11-24 2022-11-24 Ex-drinker [facility] 00:00:00 00:00:00 (finding) [facility] History of Social 2022-11-07 2022-11-[address] [facility] function 00:00:00 00:00:00 Medical Center History of tobacco 2022-11-03 Passive smoker Un iversity of use 00:00:00 [facility] History [facility] 2022-08-06 2022-08-[address] [facility] Transport Med 00:00:00 00:00:[address] [facility] 2022-08-06 2022-08-[address] [facility] Housing Unable to 00:00:00 00:00:00 Medical Center Pay History [facility] 2022-08-06 2022-08-[address] [facility] Housing Places 00:00:00 00:00:00 Medical Ce nter Lived History [facility] 2022-08-06 2022-08-[address] [facility] Housing Homeless 00:00:00 00:00:00 Medical Center Last Year History [facility] 2019-02-15 2019-02-[address] [facility] Alcohol Binge 00:00:00 00:00:[address] History [facility] 2019-02-15 2019-02-[address] [facility] Alcohol Frequency 00:00:00 00:00:00 Medical Center Sex [birth year] Universit y of 00:00:00 00:00:00 [facility] Smoking Status Start Date Stop Date Source Ex-smoker 2022-11-24 00:00:00 2022-11-24 [facility] [place] 00:00:00 Medical Branch Occasional tobacco 2022-07-30 00:00:00 [facility] smoker Center Medications Ordered Filled Start Stop Current Ordering Indication Dosage Frequency Signature Comments Components Source Medication Medication Date Date Medication? Clinician (SIG) Name Name QUEtiapine 2022-0 Yes 25mg Take 1 Unive rs 25 mg 9-14 tablet by ity of tablet 15:09: mouth in [place] [address] the Medical morning Branch and 1 tablet in the evening. furosemide 3-0 Yes 20mg Take 1 Unive rs (LASIX) 20 9-14 tablet by ity of mg tablet 15:09: mouth in [place] [address] the Medical morning. Branch QUEtiapine 2022-0 Yes 25mg Take 1 Unive rs 25 mg 9-14 tablet by ity of tablet 15:09: mouth in [place] [address] the Medical morning Branch and 1 tablet in the evening. furosemide 3-0 Yes 20mg Take 1 Unive rs (LASIX) 20 9-14 tablet by ity of mg tablet 15:09: mouth in [place] [address] the Medical morning. Branch KCL 2022-0 Yes 20meq 20 mEq, Univers (KLOR-CON 9-14 Oral, ity of M20) tablet 14:00: DAILY, [facility] 20 mEq 00 First dose Medical on [facility] Branch 11/29/22 at 0900, Until Discontinu ed, Routine QUEtiapine 2023-0 Yes 25mg Take 1 Unive rs 25 mg 9-13 tablet by ity of tablet 21:49: mouth in [place] [address] the Medical morning Branch and 1 tablet in the evening. furosemide 3-0 Yes 20mg Take 1 Unive rs (LASIX) 20 9-13 tablet by ity of mg tablet 21:49: mouth in [place] [address] the Medical morning. Branch QUEtiapine 2022- Yes 25mg Take 1 Unive rs 25 mg 11-28 tablet by ity of tablet 21:49: mouth in [place] [address] the Medical morning Branch and 1 tablet in the evening. furosemide 2022- Yes 20mg Take 1 Unive rs (LASIX) 20 11-28 tablet by ity of mg tablet 21:49: mouth in [place] [address] the Medical morning. Branch albuterol 2022- No 2{puff} 2 Puff, U nivers (VENTOLIN) 11-28 Inhalation it y of inhaler 2 20:59: 21:00 , [place] 1 [place] P[place] :[place] dose, On Medical Wed Branch 11/28/22 at 1600, Routine magnesium 2022-2022- No 4g 4 g, IV Univ ers sulfate in 11-28 Piggyback, it y of water 4 15:45: 18:49 at 25 [place] gram/50 mL 00 :00 mL/hr Medical (8 %) IV Administer Branc h Piggyback 4 over 120 g Minutes, ONCE, 1 dose, On Sat11/28/22 at 1045, Routine atorvastati 2022-2022- No 40mg Take 1 Uni vers n 40 mg 11-28 tablet by ity of tablet 10:17: 00:00 mouth at [place] 14 :00 bedtime. Medical Branch amLODIPine 2022- No 10mg Take 1 Univ ers 10 mg 11-28 tablet by ity of tablet 10:12: 00:00 mouth in [place] 07 :00 the Medical morning. Branch NIFEdipine 2022-2022- No 60mg Take 1 Univ ers ER 60 mg 11-28 tablet by ity o f tablet 10:12: 00:00 mouth in [place] 04 :00 the Medical morning. Branch metoprolol 2022-2022- No 50mg Take 1 Univ ers tartrate 11-28 tablet by ity o f (LOPRESSOR) 10:12: 00:00 [place] 50 mg 04 :00 the Medical tablet morning Branch and 1 tablet in the evening. amLODIPine 2022-0 Yes [id number] 2.5mg Take 1 Univers 2.5 mg 11-28 tablet by ity of tablet 00:00: mouth in [place] 00 the Medical morning. Branch metoprolol 3-0 Yes [id number] 12.5mg Take 0.5 Univers tartrate 25 9-13 tablets by it y of mg tablet 00:00: [place] the Medical morning Branch and 0.5 tablets in the evening. atorvastati 3-0 Yes [id number] 40mg Take 1 Univers n 40 mg 9-13 tablet by ity of tablet 00:00: mouth at [place] 00 bedtime. Medical Branch amLODIPine 3-0 Yes [id number] 2.5mg Take 1 Univers 2.5 mg 9-13 tablet by ity of tablet 00:00: mouth in [place] 00 the Medical morning. Branch metoprolol 3-0 Yes [id number] 12.5mg Take 0.5 Univers tartrate 25 9-13 tablets by it y of mg tablet 00:00: [place] the Medical morning Branch and 0.5 tablets in the evening. atorvastati 2022-0 Yes [id number] 40mg Take 1 Univers n 40 mg 9-13 tablet by ity of tablet 00:00: mouth at [place] 00 bedtime. Medical Branch amLODIPine 2022-0 Yes [id number] 2.5mg Take 1 Univers 2.5 mg 9-13 tablet by ity of tablet 00:00: mouth in [place] 00 the Medical morning. Branch metoprolol 3-0 Yes [id number] 12.5mg Take 0.5 Univers tartrate 25 9-13 tablets by it y of mg tablet 00:00: [place] the Medical morning Branch and 0.5 tablets in the evening. atorvastati 3-0 Yes [id number] 40mg Take 1 Univers n 40 mg 9-13 tablet by ity of tablet 00:00: mouth at [place] 00 bedtime. Medical Branch amLODIPine 3-0 Yes [id number] 2.5mg Take 1 Univers 2.5 mg 9-13 tablet by ity of tablet 00:00: mouth in [place] 00 the Medical morning. Branch metoprolol 3-0 Yes [id number] 12.5mg Take 0.5 Univers tartrate 25 9-13 tablets by it y of mg tablet 00:00: [place] 00 the Medical morning Branch and 0.5 tablets in the evening. atorvastati 2023-0 Yes [id number] 40mg Take 1 Univers n 40 mg 11-28 tablet by ity of tablet 00:00: mouth at [place] 00 bedtime. Medical Branch HYDROcodone Yes 1{tbl} [...] Routine, Pain (scale 1-3) nitroglycer 2022- No [id number] .8mg 0.8 mg, Univers in 11-27 Sublingual ity of (NITROSTAT) 20:15: 19:15 , ONCE, 1 [place] sublingual 00 :00 dose, On Medic al tablet 0.8 e Branch mg 11/27/22 at 1515, KASSIDY iopamidol 2022- No [id number] 80mL 80 mL, U nivers (ISOVUE 11-27 Intravenou ity o f 370-500 mL) 20:15: 19:25 s, ONCE, 1 [place] injection 00 :00 dose, On Medica l 80 mL e Branch 11/27/22 at 1515, Routine acetaminoph 2022- No 1{tbl} 1 tablet, Univers en-codeine 11-27 Oral, ity of (TYLENOL 11:15: 10:29 ONCE, 1 [place] #3) 300-30 00 :00 dose, On Medic al mg tablet 1 Tue Branch tablet 11/27/22 at 0615, Routine acetaminoph 0 2022- No 1{tbl} 1 tablet, Univers en-codeine 11-26 Oral, ity of (TYLENOL 18:45: 18:50 ONCE, 1 [place] #3) 300-30 00 :00 dose, On Medic al mg tablet 1 Mon Branch tablet 11/26/22 at 1345, Routine metoprolol Yes 12.5mg 12.5 mg, U nivers tartrate 11-26 Oral, BID, ity o f (LOPRESSOR) 13:00: First dose [place] tablet 12.5 00 on Mon Medica l mg 11/26/22 at Branch 0800, Until Discontinu ed, Routine perflutren 2022- No [id number] 3mL 3 mL, IV Univers protein-A 11-25 Push, ity of microsphr 15:00: 15:00 [place]CE, [place] (OPTISON) 00 :00 dose, On Medica l injection 3 [facility] mL 11/25/22 at 1000, Routine pantoprazol Yes 40mg 40 mg, Univ ers e 11-25 Oral, ity of (PROTONIX) 14:00: DAILY, [place] EC tablet 00 First dose Medi wale 40 mg on [facility] 11/25/22 at 0900, Until Discontinu ed, Routine clopidogreL 2022- No 75mg 75 mg, Uni vers (PLAVIX) 75 11-25 Oral, ity of mg tablet 14:00: 14:47 DAILY, [place] 75 mg 00 :08 First dose Medical on [facility] 11/25/22 at 0900, Until Discontinu ed, Routine magnesium 2022- No 4g 4 g, IV Univ ers sulfate in 11-25 Piggyback, it y of water 4 04:15: 07:19 at 25 [place] gram/50 mL 00 :00 mL/hr Medical (8 %) IV Administer Branc h Piggyback 4 over 120 g Minutes, ONCE, 1 dose, On [facility] 11/24/22 at 2315, Routine atorvastati Yes 40mg 40 mg, Univ ers n (LIPITOR) 11-25 Oral, QHS, it y of tablet 40 02:00: [place] mg 00 on [facility] Medical 11/24/22 at Branch 2100, Until Discontinu [...] Rang e, Dosing and Testing: &nbs p;FOR [facility], AND [facility] ONLY &nbs p; - aPTT < 35: [...] :00 by mouth Center daily. amLODIPine 2022-0 2024- No 10mg QD Take [address] [facility] (NORVASC) 8-30 08-29 tablet (10 Reyna es 10 MG 00:00: 23:59 mg total) Medica l tablet 00 :00 by mouth Center daily. amLODIPine 2022-0 2024- No 10mg QD Take [address] [facility] (NORVASC) 8-30 -29 tablet (10 Reyna es 10 MG 00:00: 23:59 mg total) Medica l tablet 00 :00 by mouth Center daily. amLODIPine 2022-0 2024- No 10mg QD Take [address] [facility] (NORVASC) 8-30 -29 tablet (10 Reyna es 10 MG 00:00: 23:59 mg total) Medica l tablet 00 :00 by mouth Center daily. amLODIPine 2022-0 2024- No 10mg QD Take [address] [facility] [address] [...] Center mouth daily for 30 days. thiamine 2022-2022- No 100mg QD Take 1 [facility]I S t 100 MG 11-14 tablet [facility] tablet 00:00: 23:59 (100 mg Medical 00 :00 total) by Center mouth daily for 30 days. thiamine 2022-2022- No 100mg QD Take 1 [facility] [...] (two) times daily for 30 days. QUEtiapine 2022-2022- No 25mg Q.5D Take [address] (SEROquel) 11-13 tablet (25 Iqra kes 25 MG 00:00: 23:59 mg total) Medica l tablet 00 :00 by mouth 2 Center (two) times daily for 30 days. QUEtiapine 2022-2022- No 25mg Q.5D Take [address] (SEROquel) 11-13 tablet (25 Iqra kes 25 MG 00:00: 23:59 mg total) Medica l tablet 00 :00 by mouth 2 Center (two) times daily for 30 days. QUEtiapine 2022-2022- No 25mg Q.5D Take 1 [...] by mouth Center in the morning. furosemide 2023-0 2023- No 20mg QD Take [address] [facility] (LASIX) 20 5-28 08-29 tablet (20 Iqra kes MG tablet 00:00: 00:00 mg total) Me dical 00 :00 by mouth Center in the morning. furosemide 2023-0 2023- No 20mg QD Take 1 CHI [...] 00 :00 by mouth Center nightly. atorvastati 0 2022- No 40mg QD Take [address] [facility] n (LIPITOR) 5-27 -29 tablet (40 L ukes 40 MG 00:00: [...] QD Take [address] [facility] [address] (PROCARDIA- 5-20 - tablet (60 L ukes XL) 60 MG [...] Cent er tablet in the morning. NIFEdipine 0 2022- No 60mg QD Take 1 CHI [...] Cent er tablet in the morning. NIFEdipine 0 2022- No 60mg QD Take [address] [facility] (PROCARDIA- 5-20 05-27 tablet (60 L ukes XL) 60 MG 00:00: 00:00 mg total) Me dical (OSM) 24 hr 00 :00 by mouth Cent er tablet in the morning. NIFEdipine 2022- No 60mg QD Take [address] [facility] [address] (PROCARDIA- 08-04-27 tablet (60 L ukes XL) 60 MG 00:00: 00:00 mg total) Me dical (OSM) 24 hr 00 :00 by mouth Cent er tablet in the morning. atorvastati 2022- No 40mg QD Take [address] [facility] n (LIPITOR) 08-0327 tablet (40 L ukes 40 MG 00:00: 00:00 mg total) Medica l tablet 00 :00 by mouth Center nightly. metroNIDAZO 2022-2022- No 500mg Q.[id number] Take [address] [facility] (FLAGYL) 08-03 [id number] tablet [facility] 500 MG 00:00: 00:00 3D [...] mouth Center nightly. metroNIDAZO 2022-2022- No 500mg Q.[id number] Take [address] [facility] (FLAGYL) 08-03 [id number] tablet [facility] 500 MG 00:00: 00:00 3D [...] mouth Center nightly. metroNIDAZO 2022-2022- No 500mg Q.[id number] Take [address] [facility] (FLAGYL) 08-03 [id number] tablet [facility] 500 MG 00:00: 00:00 3D [...] Center nightly. metroNIDAZO 2023-0 2023- No 500mg Q.[id number] Take [address] [facility] (FLAGYL) 08-03- [id number] tablet [facility] 500 MG 00:00: 00:00 3D [...] Center nightly. metroNIDAZO 2023-0 2023- No 500mg Q.[id number] Take [address] [facility] (FLAGYL) 08-03- [id number] tablet [facility] 500 MG 00:00: 00:00 3D [...] Center nightly. metroNIDAZO 2023-0 2023- No 500mg Q.[id number] Take [address] [facility] (FLAGYL) 08-03- [id number] tablet [facility] 500 MG 00:00: 00:00 3D [...] Center nightly. metroNIDAZO 2022-0 3- No 500mg Q.[id number] Take [address] [facility] (FLAGYL) 08-03 [id number] tablet [facility] 500 MG 00:00: 00:00 3D [...] Center nightly. metroNIDAZO 2022-0 2022- No 500mg Q.[id number] Take [address] [facility] (FLAGYL) 08-03 [id number] tablet [facility] 500 MG 00:00: 00:00 3D [...] :00 by mouth Center nightly. metroNIDAZO 3-0 2022- No 500mg Q.[id number] Take [address] [facility] (FLAGYL) 08-03 [id number] tablet [facility] 500 MG 00:00: 00:00 3D (500 mg Medical tablet 00 :00 total) by Center mouth in the morning and 1 tablet (500 mg total) at noon and 1 tablet (500 mg total) in the evening. . doxycycline 2022-0 2022- No 100mg Q.5D Take [...] Q.5D Take [address] (MONODOX) 5-03 08-21 capsule [facility] 100 MG 00:00: 00:00 (100 [...] mouth Medica l tablet 09 :00 daily. [place] divalproex 2022- No epilepsy 125mg QD Take [address] (DEPAKOTE) 5-15 05-15 mg by [facility] 125 MG EC 14:52: 00:00 mouth Medica l tablet 09 :00 daily. [place] divalproex 2022- No epilepsy 125mg QD Take [address] (DEPAKOTE) 5-15 05-15 mg by [facility] 125 MG EC 14:52: 00:00 mouth Medica l tablet 09 :00 daily. [place] divalproex 2022- No epilepsy 125mg QD Take [address] (DEPAKOTE) 5-15 05-15 mg by [facility]ukes 125 MG EC 14:52: 00:00 mouth Medica l tablet 09 :00 daily. [place] divalproex 2022- No epilepsy 125mg QD Take [address] (DEPAKOTE) 5-15 05-15 mg by [facility]ukes 125 MG EC 14:52: 00:00 mouth Medica l tablet 09 :00 daily. [place] divalproex 2022- No epilepsy 125mg QD Take [address] (DEPAKOTE) 5-15 05-15 mg by [facility]ukes 125 MG EC 14:52: 00:00 mouth Medica l tablet 09 :00 daily. [place] divalproex 2022- No epilepsy 125mg QD Take [address] (DEPAKOTE) 5-15 05-15 mg by [facility] 125 MG EC 14:52: 00:00 mouth Medica l tablet 09 :00 daily. [place] divalproex 2022- No epilepsy 125mg QD Take [address] (DEPAKOTE) 5-15 05-15 mg by [facility]ukes 125 MG EC 14:52: 00:00 mouth Medica l tablet 09 :00 daily. [place] divalproex 2022- No epilepsy 125mg QD Take [address] (DEPAKOTE) 5-15 05-15 mg by [facility] 125 MG EC 14:52: 00:00 mouth Medica l tablet 09 :00 daily. [place] divalproex 2018-03 Yes epilepsy 125mg QD Take [address] (DEPAKOTE) 2-04 mg by [facility] 125 MG EC 10:36: mouth Medical tablet 04 daily. [place] divscproex 2018-03 Yes epilepsy 125mg QD Take [address] (DEPAKOTE) 2-04 mg by [facility] 125 MG EC 10:36: mouth Medical tablet 04 daily. [place] divalproex 2018-03 Yes epilepsy 125mg QD Take [address] (DEPAKOTE) 2-04 mg by [facility] 125 MG EC 10:36: mouth Medical tablet 04 daily. [facility] famotidine 2018-03 Yes 1{tbl} Take 1 [facility] [...] Source Respiratory rate 2022-11-29 01:59:00 18 /min [facility] in 2022-11-29 01:59:00 93 /min [facility] Arterial blood by [facility] Pulse oximetry Branch Systolic blood 2022-11-29 01:23:00 126 mm[Hg] Univer sity of pressure [facility] Diastolic blood 2022-11-29 01:23:00 75 mm[Hg] [facility] 2022-11-29 01:23:00 72 /min [facility] Body temperature 2022-11-29 01:23:00 36.94 [facility] Body weight 2022-11-28 05:16:00 70.421 kg [facility] BMI 2022-11-28 05:16:00 28.40 kg/m2 [facility] Body height 2022-11-24 16:52:00 157.5 cm [facility] WEIGHT 2022-11-12 07:05:00 74.6 [...] cm Heart rate 2022-11-13 20:42:00 75 /min [facility] Respiratory rate 2022-11-13 20:42:00 18 /min [facility] Oxygen saturation in 2022-11-13 20:42:00 98 /min [facility] Arterial blood by Medical Ce nter Pulse oximetry Systolic blood 2022-11-13 16:00:00 124 mm[Hg] [facility] Diastolic blood 2022-11-13 16:00:00 74 mm[Hg] [facility] S t [facility] Body temperature 2022-11-13 16:00:00 36.44 Nahomi [facility] Body weight 2022-11-12 07:05:00 74.6 kg [facility] BMI 2022-11-12 07:05:00 30.08 kg/m2 [facility] Heart rate 2022-08-11 12:33:33 76 /min [facility] Respiratory rate 2022-08-11 12:33:33 18 /min [facility] Oxygen saturation in 2022-08-11 12:33:33 97 /min [facility] Arterial blood by Medical Ce nter Pulse oximetry Body temperature 2022-08-11 12:33:11 36.56 Nahomi [facility] Systolic blood 2022-08-11 12:32:45 129 mm[Hg] [facility] Diastolic blood 2022-08-11 12:32:45 80 mm[Hg] [facility] Body height 2022-08-05 19:35:00 157.5 cm [facility] Body weight 2022-08-05 19:35:00 58.968 kg [facility] BMI 2022-08-05 19:35:00 23.78 kg/m2 [facility] Procedures Procedure Date / Time Performing Clinician Source Performed REFERRAL- 2023-01-24 06:01:00 Doctor Unassigned, No [facility] REQUEST/RESPONSE Name Medical Branch MAGNESIUM 2022-11-28 09:22:00 Casi Maddox [facility] BASIC METABOLIC PANEL 2022-11-28 09:22:00 [facility], K, CL, CO2, Medical Branch GLUCOSE, BUN, CREATININE, [place]) CBC WITH DIFF 2022-11-28 09:22:00 Casi Maddox [facility] ANGIOGRAPHY 2022-11-27 19:24:21 Tori Hanna [facility] CORONARIES WITH CARDIAC [facility] CALCIUM SCORE CT HEAD WO CONTRAST 2022-11-27 17:24:05 Milagros Choe [facility] CBC WITHOUT DIFF 2022-11-27 09:15:00 Joel Willis [facility] MAGNESIUM 2022-11-26 09:21:00 [facility] HEPATIC FUNCTION PANEL 2022-11-26 09:21:00 Jeol Willis [facility] ([id number]) (ALB,T.PRO,BILI Medical Branch T,BU/BC,ALT,AST,ALK PHOS) BASIC METABOLIC PANEL 2022-11-26 09:21:00 Paul [facility] (NA, K, CL, CO2, Medical Branch GLUCOSE, BUN, CREATININE, CA) CBC WITH DIFF 2022-11-26 09:21:00 [facility] ACTIVATED PARTIAL 2022-11-25 22:48:00 Lazaro [facility] EKG-12 LEAD 2022-11-25 17:52:00 [facility] 2022-11-25 17:51:00 Philip Chris [facility] HB ECG ROUTINE & RHYTHM 2022-11-25 17:39:36 Joel Willis [facility] ACTIVATED PARTIAL 2022-11-25 15:42:00 Lazaro [facility] TRANSTHORACIC ECHO (TTE) 2022-11-25 14:57:34 Joel Willis [facility] COMPLETE W/ CONTRAST Medical [facility] MAGNESIUM 2022-11-25 09:20:00 Jole Willis [facility] BASIC METABOLIC PANEL 2022-11-25 09:20:00 Joel Willis [facility] (NA, K, CL, CO2, Medical Branch GLUCOSE, BUN, CREATININE, CA) URINE DRUG (IMMUNOASSAY) 2022-11-25 07:32:00 Joel Willis [facility] - COMPREHENSIVE DRUG Medical Bra [facility] SCREEN GC & CHLAMYDIA AMPLIFIED 2022-11-25 07:32:00 Joel Willis [facility] ASSAY [facility] URINE DRUG (LCMSMS) - 2022-11-25 07:32:00 Joel Willis [facility] SYNTHETIC OPIATES PANEL Medical Branch CBC WITHOUT DIFF 2022-11-25 07:31:00 Lazaro [facility] ACTIVATED PARTIAL 2022-11-25 07:31:00 Lazaro [facility] URINALYSIS 2022-11-25 07:31:00 Lazaro [facility] MAGNESIUM 2022-11-25 01:31:00 [facility] BASIC METABOLIC PANEL 2022-11-25 01:31:00 [facility] (NA, K, CL, CO2, Medical Branch GLUCOSE, BUN, CREATININE, CA) ACTIVATED PARTIAL 2022-11-25 01:31:00 Lazaro [facility] TROPONIN I 2022-11-24 23:01:00 Lazaro [facility] BLOOD CULTURE SCREEN 2022-11-24 22:57:00 Lazaro [facility] XR CHEST 1 VW 2022-11-24 21:30:59 Lazaro [facility] US ABDOMEN LIMITED 2022-11-24 21:30:31 Lazrao [facility] XR CHEST 1 VW 2022-11-24 20:37:[address] [facility] CT HEAD WO CONTRAST 2022-11-24 18:42:54 Joel Willis [facility] ACTIVATED PARTIAL 2022-11-24 17:43:00 Lazaro [facility] CBC WITH DIFF 2022-11-24 16:39:00 Lazaro [facility] MRSA / MSSA SCREEN BY 2022-11-24 16:39:00 Lazaro [facility] PCR, NARES [facility] TROPONIN I 2022-11-24 16:34:00 Lazaro [facility] THYROID STIMULATING 2022-11-24 16:34:00 Lazaro [facility] HORMONE [facility] HEPATIC FUNCTION PANEL 2022-11-24 16:34:00 Joel Willis [facility] ([id number]) (ALB,T.PRO,BILI Medical Branch T,BU/BC,ALT,AST,ALK PHOS) BASIC METABOLIC PANEL 2022-11-24 16:34:00 Joel Willis [facility] (NA, K, CL, CO2, Medical Branch GLUCOSE, BUN, CREATININE, CA) LIPID PANEL 2022-11-24 16:34:00 Lazaro [facility] ([id number])(TOTAL Medical Branch CHOLESTEROL, TRIGLYCERIDES, HDL) GLYCOSYLATED HEMOGLOBIN 2022-11-24 16:34:00 Lazaro [facility] (A1C) [facility] PROTHROMBIN TIME / INR 2022-11-24 16:34:00 Joel Willis [facility] HEPATITIS B SURFACE 2022-11-24 16:34:00 Lazaro [facility] ANTIBODY [facility] Branch HEPATITIS B SURFACE 2022-11-24 16:34:00 Lazaro [facility] ANTIGEN [facility] Branch HCV ANTIBODY 2022-11-24 16:34:00 Lazaro [place] [facility] HEPATITIS A VIRUS 2022-11-24 16:34:00 Lazaro [facility] ANTIBODY IGM [facility] N-TERMINAL PRO-BNP 2022-11-24 16:34:00 Lazaro [facility] HIV 1/2 AG-AB WITH 2022-11-24 16:34:00 Lazaro [facility] REFLEX [facility] EKG-12 LEAD 2022-11-24 16:22:20 Issa [facility] Zackary [facility] POCT-GLUCOSE METER 2022-11-13 12:03:00 Merchant [facility] PHOSPHORUS 2022-11-13 04:55:00 Merchant [facility] MAGNESIUM 2022-11-13 04:55:00 Kaylahant [facility] CBC W/PLT COUNT & AUTO 2022-11-13 04:55:00 [facility] DIFFERENTIAL [place] CBC W/PLT COUNT & AUTO 2022-11-13 04:55:00 Merchant [facility] POCT-GLUCOSE METER 2022-11-12 21:27:00 Merchant [facility] POCT-GLUCOSE METER 2022-11-12 18:07:00 Merchant, [facility] POCT-GLUCOSE METER 2022-11-12 13:01:00 Merchant, [facility] POCT-GLUCOSE METER 2022-11-12 06:34:00 Merchant, [facility] BASIC METABOLIC PANEL 2022-11-12 04:44:00 Merchant, [facility] PHOSPHORUS 2022-11-12 04:44:00 Merchant, [facility] MAGNESIUM 2022-11-12 04:44:00 Merchant, [facility] CBC W/PLT COUNT & AUTO 2022-11-12 04:44:00 Merchant, [facility] CBC W/PLT COUNT & AUTO 2022-11-12 04:44:00 Merchant, [facility] POCT-GLUCOSE METER 2022-11-11 23:33:00 Merchant, [facility] POCT-GLUCOSE METER 2022-11-11 17:24:00 Merchant, [facility] POCT-GLUCOSE METER 2022-11-11 12:50:00 Merchant, [facility] POCT-GLUCOSE METER 2022-11-11 07:10:00 Merchant, [facility] BASIC METABOLIC PANEL 2022-11-11 04:41:00 Merchant, [facility] PHOSPHORUS 2022-11-11 04:41:00 Merchant, [facility] MAGNESIUM 2022-11-11 04:41:00 Merchant, [facility] CBC W/PLT COUNT & AUTO 2022-11-11 04:41:00 Merchant, [facility] CBC W/PLT COUNT & AUTO 2022-11-11 04:41:00 [facility] POCT-GLUCOSE METER 2022-11-11 00:15:00 Merchant, [facility] POCT-GLUCOSE METER 2022-11-10 17:10:00 Merchant, [facility] POCT-GLUCOSE METER 2022-11-10 16:56:00 Merchant, [facility] POCT-GLUCOSE METER 2022-11-10 12:12:00 Merchant, [facility] POCT-GLUCOSE METER 2022-11-10 06:57:00 Merchant, [facility] BASIC METABOLIC PANEL 2022-11-10 04:59:00 Merchant, [facility] PHOSPHORUS 2022-11-10 04:59:00 Merchant, [facility] MAGNESIUM 2022-11-10 04:59:00 Merchant, [facility] CBC W/PLT COUNT & AUTO 2022-11-10 04:59:00 Merchant, [facility] CBC W/PLT COUNT & AUTO 2022-11-10 04:59:00 Merchant, [facility] POCT-GLUCOSE METER 2022-11-09 23:21:00 Merchant, [facility] POCT-GLUCOSE METER 2022-11-09 17:12:00 Merchant, [facility] POCT-GLUCOSE METER 2022-11-09 12:09:00 Merchant, [facility] VANCOMYCIN LEVEL, TROUGH 2022-11-09 09:28:00 Clyde Florentino [facility] POCT-GLUCOSE METER 2022-11-09 05:53:00 Merchant, [facility] BASIC METABOLIC PANEL 2022-11-09 03:49:00 [facility] PHOSPHORUS 2022-11-09 03:49:00 [facility] MAGNESIUM 2022-11-09 03:49:00 Juan [facility] CBC W/PLT COUNT & AUTO 2022-11-09 03:49:00 Juan J [facility] CBC W/PLT COUNT & AUTO 2022-11-09 03:49:00 [facility] POCT-GLUCOSE METER 2022-11-08 23:58:00 Merchant [facility] BASIC METABOLIC PANEL 2022-11-08 18:20:00 Juan J [facility] POCT-GLUCOSE METER 2022-11-08 17:17:00 Merchant, [facility] POCT-GLUCOSE METER 2022-11-08 12:24:00 [facility] POCT-GLUCOSE METER 2022-11-08 05:58:00 [facility] BASIC METABOLIC PANEL 2022-11-08 04:09:00 [facility] PHOSPHORUS 2022-11-08 04:09:00 Juan J [facility] MAGNESIUM 2022-11-08 04:09:00 Juan J [facility] CBC W/PLT COUNT & AUTO 2022-11-08 04:09:00 [facility] CBC W/PLT COUNT & AUTO 2022-11-08 04:09:00 [facility] XR ABDOMEN/KUB 1 VIEW 2022-11-07 21:11:00 [facility] BASIC METABOLIC PANEL 2022-11-07 17:58:00 [facility] BLOOD CULTURE 2022-11-07 10:27:00 Tiffanie Noel [facility] POCT-GLUCOSE METER 2022-11-07 06:01:00 Amanda Head [facility]resh[facility] Center HIGH SENSITIVITY 2022-11-07 03:17:00 Tiffanie Noel [facility] TROPONIN I Center BASIC METABOLIC PANEL 2022-11-07 03:17:00 Agustin Suarez [facility] PHOSPHORUS 2022-11-07 03:17:00 Agustin Erick, [facility] [place] MAGNESIUM 2022-11-07 03:17:00 [facility]in [facility] [place] CBC W/PLT COUNT & AUTO 2022-11-07 03:17:00 Agustin [facility], [facility] CBC W/PLT COUNT & AUTO 2022-11-07 03:17:00 Saeid Campdip [facility] POCT-GLUCOSE METER 2022-11-07 00:13:00 Amanda Head [facility] Hareshkumar [place] HIGH SENSITIVITY 2022-11-06 21:18:00 Tiffanie Noel [facility] TROPONIN I [place] BLOOD CULTURE 2022-11-06 14:48:00 Tesha Valladares [facility] URINALYSIS W/ REFLEX 2022-11-06 14:48:00 Tesha Valladares [facility] URINE CULTURE [facility] PT/APTT 2022-11-06 14:47:00 Tesha Valladares [facility] HIGH SENSITIVITY 2022-11-06 14:47:00 Tiffanie Noel [facility] TROPONIN I [place] BLOOD GAS, ARTERIAL 2022-11-06 14:46:00 Tesha Valladares [facility] XR CHEST 1 VIEW PORTABLE 2022-11-06 12:18:35 Tesha Valladares [facility] / BEDSIDE [facility] BLOOD CULTURE 2022-11-06 10:38:00 Tesha Valladares [facility] LACTIC ACID, VENOUS 2022-11-06 10:38:00 Tesha Valladares [facility] PROCALCITONIN 2022-11-06 10:38:00 Tesha Valladares [facility] HIGH SENSITIVITY 2022-11-06 10:38:00 Tesha Valladares [facility] TROPONIN I [facility] POCT-BLOOD GASES, 2022-11-06 10:38:00 Tai, [facility] ARTERIAL [place] POCT-SODIUM 2022-11-06 10:38:00 Elvia, [facility] POCT-POTASSIUM 2022-11-06 10:38:00 Elvia, [facility] POCT-HEMOGLOBIN 2022-11-06 10:38:00 Elvia, [facility] POCT-HEMATOCRIT 2022-11-06 10:38:00 Tai, [facility] POCT-GLUCOSE 2022-11-06 10:38:00 Elvia, [facility] ECG 12-LEAD 2022-11-06 10:26:42 Unknown, 7 [facility] ECG 12-LEAD 2022-11-06 10:24:58 Unknown, 7 [facility] ECG 12-LEAD 2022-11-06 10:23:56 Unknown, 7 [facility] ECG 12-LEAD 2022-11-06 10:23:56 Unknown, 7 [facility] POCT-GLUCOSE METER 2022-11-06 10:09:00 Elvia, [facility] CT BRAIN WITHOUT IV 2022-11-06 08:46:36 Jhony Curtis [facility] CONTRAST [place] POCT-GLUCOSE METER 2022-11-06 05:34:00 Elvia [facility] BASIC METABOLIC PANEL 2022-11-06 04:38:00 Agustin Erick [facility] [place] PHOSPHORUS 2022-11-06 04:38:00 [facility] [place] MAGNESIUM 2022-11-06 04:38:00 [facility]in [facility] [place] CBC W/PLT COUNT & AUTO 2022-11-06 04:38:00 [facility] CBC W/PLT COUNT & AUTO 2022-11-06 04:38:00 Saeid Camp [facility] DIFFERENTIAL [place] POCT-GLUCOSE METER 2022-11-05 23:23:00 Tai, [facility] POCT-GLUCOSE METER 2022-11-05 17:17:00 Elvia [facility] XR ABDOMEN/KUB 1 VIEW 2022-11-05 14:12:00 Elvia [facility] POCT-GLUCOSE METER 2022-11-05 12:42:00 Tai [facility] POCT-GLUCOSE METER 2022-11-05 06:14:00 Tai, [facility] BASIC METABOLIC PANEL 2022-11-05 03:34:00 [facility] [place] PHOSPHORUS 2022-11-05 03:34:00 [facility] [place] [facility]NESIUM 2022-11-05 03:34:00 [facility] W/PLT COUNT & AUTO 2022-11-05 03:34:00 [facility] CBC W/PLT COUNT & AUTO 2022-11-05 03:34:00 Saeid Camp [facility] POCT-GLUCOSE METER 2022-11-04 23:14:00 Tai, [facility] SODIUM 2022-11-04 18:28:00 Saeid Camp Manuel [facility] POCT-GLUCOSE METER 2022-11-04 16:53:00 Elvia [facility] POCT-GLUCOSE METER 2022-11-04 12:30:00 Elvia [facility] SODIUM 2022-11-04 12:17:00 KanSaeid sanders Manuel [facility] POCT-GLUCOSE METER 2022-11-04 05:41:00 Elvia [facility] BASIC METABOLIC PANEL 2022-11-04 04:12:00 [facility] [place] PHOSPHORUS 2022-11-04 04:12:00 [facility] [place] MAGNESIUM 2022-11-04 04:12:00 [facility] [place] CBC W/PLT COUNT & AUTO 2022-11-04 04:12:00 [facility] CBC W/PLT COUNT & AUTO 2022-11-04 04:12:00 Saeid Camp [facility] POCT-GLUCOSE METER 2022-11-04 00:14:00 Elvia [facility] SODIUM 2022-11-03 18:20:00 Saeid Camp [facility] POCT-GLUCOSE METER 2022-11-03 16:39:00 Elvia [facility] SODIUM 2022-11-03 12:06:00 Saeid Camp [facility] POCT-GLUCOSE METER 2022-11-03 11:53:00 Elvia [facility] XR ABDOMEN/KUB 1 VIEW 2022-11-03 11:27:11 Elvia Sharp [facility] POCT-GLUCOSE METER 2022-11-03 05:39:00 Elvia [facility] BASIC METABOLIC PANEL 2022-11-03 05:04:00 Agustin [facility] PHOSPHORUS 2022-11-03 05:04:00 [facility] [place] MAGNESIUM 2022-11-03 05:04:00 [facility] [place] CBC W/PLT COUNT & AUTO 2022-11-03 05:04:00 [facility] CBC W/PLT COUNT & AUTO 2022-11-03 05:04:00 Saeid Camp [facility] POCT-GLUCOSE METER 2022-11-02 23:23:00 Elvia [facility] SODIUM 2022-11-02 18:10:00 Saeid Camp [facility] POCT-GLUCOSE METER 2022-11-02 17:45:00 Elvia [facility] POCT-GLUCOSE METER 2022-11-02 12:55:00 Elvia [facility] SODIUM 2022-11-02 12:29:00 Conrado [facility] CT BRAIN WITHOUT IV 2022-11-02 11:03:00 Elvia [facility] POCT-GLUCOSE METER 2022-11-02 06:10:00 [facility]UM 2022-11-02 05:19:00 Conrado [facility] BASIC METABOLIC PANEL 2022-11-02 05:19:00 [facility] [place] PHOSPHORUS 2022-11-02 05:19:00 [facility] [place] MAGNESIUM 2022-11-02 05:19:00 [facility] W/PLT COUNT & AUTO 2022-11-02 05:19:00 Agustin [facility] CBC W/PLT COUNT & AUTO 2022-11-02 05:19:00 Conrado [facility] POCT-GLUCOSE METER 2022-11-02 00:07:00 [facility] SODIUM 2022-11-01 18:31:00 Conrado [facility] POCT-GLUCOSE METER 2022-11-01 18:27:00 Alyssa [facility] 2D ECHO W/ DOPPLER 2022-11-01 15:27:00 Conrado [facility] (CW/PW/COLOR) [place] SODIUM 2022-11-01 13:53:00 Conrado [facility] VANCOMYCIN LEVEL, TROUGH 2022-11-01 08:58:00 Yaima Mccrack[facility] MAGNESIUM 2022-11-01 08:58:00 [facility] POT[facility]UM 2022-11-01 08:58:00 [facility] BASIC METABOLIC PANEL 2022-11-01 03:10:00 [facility] [place] PHOSPHORUS 2022-11-01 03:10:00 Agustin Erick, [facility] MAGNESIUM 2022-11-01 03:10:00 Agustin Erick, [facility] CBC W/PLT COUNT & AUTO 2022-11-01 03:10:00 [facility] CBC W/PLT COUNT & AUTO 2022-11-01 03:10:00 Bann[facility]igel [facility] SODIUM 2022-10-31 23:53:00 [facility] SODIUM 2022-10-31 17:42:00 [facility] BLOOD CULTURE 2022-10-31 15:54:00 Alyssa [facility] SARS-COV2/INFLUENZA/RSV 2022-10-31 11:52:00 [facility] RT-PCR Center SODIUM 2022-10-31 11:52:00 Conrado [facility] MAGNESIUM 2022-10-31 11:52:00 [facility] POCT-GLUCOSE METER 2022-10-31 11:49:00 Kathy Zepeda [facility] B-TYPE NATRIURETIC 2022-10-31 09:42:00 Conrado Saeid [facility] ([facility] Center MRSA SCREEN 2022-10-31 08:30:00 Clyde Florentino [facility] BASIC METABOLIC PANEL 2022-10-31 04:01:00 Agustin Erick, [facility] PHOSPHORUS 2022-10-31 04:01:00 Agustin Erick, [facility] MAGNESIUM 2022-10-31 04:01:00 Agustin Erick, [facility] CBC W/PLT COUNT & AUTO 2022-10-31 04:01:00 Agustin Erick, [facility] CBC W/PLT COUNT & AUTO 2022-10-31 04:01:00 KanakiSaeid [place] Manuel [facility] VENOUS DOPPLER LEGS 2022-10-31 03:37:28 Sreekanth Guevara [facility] VENOUS DOPPLER ARMS 2022-10-31 03:31:47 Sreekanth Guevara [facility] HIGH SENSITIVITY 2022-10-30 22:19:00 [facility]IN I [facility] SODIUM 2022-10-30 22:19:00 Kanakia, Saeid [facility] ECG 12-LEAD 2022-10-30 17:27:26 Unknown, Hl7 Doctor [facility] ECG 12-LEAD 2022-10-30 17:26:59 Sreekanth Guevara [facility] ECG 12-LEAD 2022-10-30 17:26:59 Unknown, Hl7 Doctor [facility] XR ABDOMEN/KUB 1 VIEW 2022-10-30 17:09:00 KanHumphrey sandersal Manuel [facility] LACTIC ACID, ARTERIAL 2022-10-30 16:48:00 Donnie Gonzalez [facility] HIGH SENSITIVITY 2022-10-30 16:48:00 [facility]OPONIN I [facility] SODIUM 2022-10-30 16:48:00 Kanakivalencia, Saeid Manuel [facility] BLOOD GAS, ARTERIAL 2022-10-30 14:41:00 [facility] BLOOD GAS, ARTERIAL 2022-10-30 12:13:00 Nehemias Russo [facility] SODIUM 2022-10-30 12:12:00 KanakiSaeid [place] [facility] LACTIC ACID, ARTERIAL 2022-10-30 12:12:00 Donnie Gonzalez [facility] XR CHEST 1 VIEW PORTABLE 2022-10-30 10:28:00 AgustinKelly Omalley [facility] / BEDSIDE [facility] PROCALCITONIN 2022-10-30 10:14:00 Donnie Gonzalez [facility] HIGH SENSITIVITY 2022-10-30 10:14:00 Sreekanth Guevara [facility] TROPONIN I Center ECG 12-LEAD 2022-10-30 10:02:46 Unknown, Hl7 Doctor [facility] ECG 12-LEAD 2022-10-30 10:02:15 [facility] 12-LEAD 2022-10-30 10:02:15 Unknown, Hl7 Doctor [facility] CT BRAIN WITHOUT IV 2022-10-30 06:24:45 [facility] BASIC METABOLIC PANEL 2022-10-30 03:19:00 [facility]US 2022-10-30 03:19:00 [facility] MAGNESIUM 2022-10-30 03:19:00 [facility] CBC W/PLT COUNT & AUTO 2022-10-30 03:19:00 [facility] DIFFERENTIAL [facility] CBC W/PLT COUNT & AUTO 2022-10-30 03:19:00 Saeid Camp [facility] DIFFERENTIAL Center SODIUM 2022-10-29 23:11:00 Conrado Saeid [facility] XR ABDOMEN/KUB 1 VIEW 2022-10-29 18:16:00 Sreekanth Guevara [facility] PORTABLE Center SODIUM 2022-10-29 18:14:00 Kanakia, Saeid Jackson [facility] CREATININE, RANDOM URINE 2022-10-29 14:52:00 Pamela Angela [facility] SODIUM 2022-10-29 12:19:00 Conrado Saeid Manuel [facility] SODIUM, RANDOM URINE 2022-10-29 12:19:00 ShonnigelvalenciaSaeid C [facility] UREA NITROGEN, RANDOM 2022-10-29 12:19:00 ConradoSaeid [facility] URINE Center OSMOLALITY, URINE 2022-10-29 12:19:00 Shontommy [facility] OSMOLALITY, SERUM 2022-10-29 12:19:00 Saeid Campdip [facility] DRUG SCREEN, URINE, 2022-10-29 12:19:00 Agustin Suarez [facility] COMPREHENSIVE [facility] HCG, QUANTITATIVE, 2022-10-29 12:19:00 Agustinjackie Suarez [facility] CTA CAROTID 2022-10-29 10:40:00 Jason [facility] CT BRAIN WITHOUT IV 2022-10-29 10:30:00 Alexia [facility] CONTRAST Center CTA BRAIN 2022-10-29 10:20:00 Murray Elise [facility] RAPID DRUG SCREEN, URINE 2022-10-29 08:37:00 Saeid Camp [facility] SCREEN, URINE 2022-10-29 08:37:00 Donnie Gonzalez [facility] BLOOD GAS, ARTERIAL 2022-10-29 07:53:00 Donnie Gonzalez [facility] XR CHEST 1 VIEW PORTABLE 2022-10-29 04:06:00 Murray Elise [facility] / BEDSIDE Center US GUIDE, VASCULAR 2022-10-29 03:47:51 Murray Elise [facility] ACCESS Center IA INSERT 2022-10-29 03:46:45 Jason [facility],ART,PERCUT,SHORTTER Center M BLOOD GAS, ARTERIAL 2022-10-29 03:46:00 Pitta, [facility] CBC W/PLT COUNT & AUTO 2022-10-29 03:45:00 [facility] COMPREHENSIVE METABOLIC 2022-10-29 03:45:00 [facility] MAGNESIUM 2022-10-29 03:45:00 [facility] 2022-10-29 03:45:00 [facility] CALCIUM, IONIZED 2022-10-29 03:45:00 [facility] TSH/FREE T4 IF INDICATED 2022-10-29 03:45:00 [facility] HEMOGLOBIN A1C 2022-10-29 03:45:00 [facility] PROTHROMBIN TIME/INR 2022-10-29 03:45:00 [facility] APTT 2022-10-29 03:45:00 [facility] T4, FREE 2022-10-29 03:45:00 [facility] CBC W/PLT COUNT & AUTO 2022-10-29 03:45:00 [facility], [facility] ECG 12-LEAD 2022-10-29 03:28:02 Unknown, Hl7 [facility] ECG 12-LEAD 2022-10-29 03:27:17 [facility] 12-LEAD 2022-10-29 03:27:17 Unknown, Hl7 [facility] EKG-SCANNED 2022-10-29 00:00:00 Dahiana [facility] BASIC METABOLIC PANEL 2022-08-11 04:41:00 Clifton De Luna [facility] MAGNESIUM 2022-08-11 04:41:00 [facility] CALCIUM, IONIZED 2022-08-11 04:41:00 [facility] PHOSPHORUS 2022-08-11 04:41:00 [facility] CBC W/PLT COUNT & AUTO 2022-08-11 04:41:00 [facility] CBC W/PLT COUNT & AUTO 2022-08-11 04:41:00 [facility] BASIC METABOLIC PANEL 2022-08-10 16:09:00 [facility] SODIUM, RANDOM URINE 2022-08-10 09:33:00 [facility] UREA NITROGEN, RANDOM 2022-08-10 09:33:00 [facility] CREATININE, RANDOM URINE 2022-08-10 09:33:00 [facility] OSMOLALITY, URINE 2022-08-10 09:33:00 [facility] TSH/FREE T4 IF INDICATED 2022-08-10 09:33:00 [facility] CORTISOL 2022-08-10 09:33:00 [facility] OSMOLALITY, SERUM 2022-08-10 09:33:00 [facility] T4, FREE 2022-08-10 09:33:00 [facility] CBC (HEMOGRAM ONLY) 2022-08-10 05:06:00 Yariel niko [facility] BASIC METABOLIC PANEL 2022-08-10 05:06:00 Clifton De Luna [facility] MAGNESIUM 2022-08-10 05:06:00 [facility] (HEMOGRAM ONLY) 2022-08-09 03:38:00 Athreya, [facility] BASIC METABOLIC PANEL 2022-08-09 03:38[facility]00 [facility]UM 2022-08-09 03:38:[address] [facility] CBC (HEMOGRAM ONLY) 2022-08-08 04:25:00 [facility] BASIC METABOLIC PANEL 2022-08-08 04:25:00 [facility] B-TYPE NATRIURETIC 2022-08-08 04:25:00 [facility] FACTOR (BNP) [facility] STD PANEL - CT/GC RNA 2022-08-07 16:52:00 [facility] FUNGUS CULTURE + SMEAR 2022-08-07 10:22:00 Aida Alcala CH I [facility] ANAEROBIC CULTURE 2022-08-07 10:22:00 Aida Alcala [facility] WOUND CULTURE + GRAM 2022-08-07 10:22:[address] [facility] RADIOLOGIC GUIDANCE & 2022-08-07 10:20:00 Aida Alcala [facility] INTERP/SPEC [facility] BASIC METABOLIC PANEL 2022-08-07 03:42:00 [facility] CBC (HEMOGRAM ONLY) 2022-08-07 03:41:00 [facility] CT ABDOMEN/PELVIS WITH 2022-08-06 00:22:00 Aida Alcala CH I [facility] IV CONTRAST [facility] SCREEN, URINE 2022-08-05 21:06:[address] [facility] CBC W/PLT COUNT & AUTO 2022-08-05 20:40:00 Aida Alcala CH I [facility] DIFFERENTIAL [facility] BASIC METABOLIC PANEL 2022-08-05 20:40:00 [facility] PROTHROMBIN TIME/INR 2022-08-05 20:40:00 [facility] TYPE AND SCREEN, 2022-08-05 20:40:00 [facility] AUTOMATED [facility] CBC W/PLT COUNT & AUTO 2022-08-05 20:40:00 [facility] DIFFERENTIAL [facility] (CELLAVISION MANUAL 2022-08-05 20:40:00 [facility], [facility] Medical DIFF) [facility] TRANSTHORACIC ECHO FOR 2022-08-03 13:59:39 Unknown, Hl7 Doctor [facility] BASIC METABOLIC PANEL 2022-08-03 04:31:00 [facility] CBC (HEMOGRAM ONLY) 2022-08-03 04:31:00 [facility] CBC W/PLT COUNT & AUTO 2022-08-02 13:09:00 [facility] DIFFERENTIAL [place] BASIC METABOLIC PANEL 2022-08-02 13:09:00 [facility] CBC W/PLT COUNT & AUTO 2022-08-02 13:09:00 [facility] DIFFERENTIAL [place] (CELLAVISION MANUAL 2022-08-02 13:09:00 [facility] DIFF) [place] MYOCARDIAL PERFUSION 2022-08-01 13:31:00 Judy Barros [facility] SPECT, PHARM [facility] TREADMILL 2022-08-01 11:39:56 Unknown, Hl7 [facility] TOLERANCE(NON-NUCLEAR Center TREADMILL) ECG 12-LEAD 2022-08-01 10:14:26 Unknown, Hl7 [facility] ECG 12-LEAD 2022-08-01 10:14:26 Unknown, Hl7 [facility] ECG 12-LEAD 2022-08-01 10:13:38 Unknown, Hl7 [facility] ECG 12-LEAD 2022-08-01 10:13:38 Unknown, 7 [facility] CBC W/PLT COUNT & AUTO 2022-08-01 04:47:00 Leonid Harris [facility] DIFFERENTIAL Center BASIC METABOLIC PANEL 2022-08-01 04:47:00 Leonid Harris [facility] MAGNESIUM 2022-08-01 04:47:00 Leonid Harris [facility] PHOSPHORUS 2022-08-01 04:47:00 Leonid Harris [facility] HEMOGLOBIN A1C 2022-08-01 04:47:00 [facility] PT/APTT 2022-08-01 04:47:00 [facility] HCG, QUANTITATIVE, 2022-08-01 04:47:00 [facility] TYPE AND SCREEN, 2022-08-01 04:47:00 Leonid Harris [facility] AUTOMATED Center CBC W/PLT COUNT & AUTO 2022-08-01 04:47:00 Leonid Harris [facility] DIFFERENTIAL Suring (CELLAVISION MANUAL 2022-08-01 04:47:00 [facility] 2D ECHO W/ DOPPLER 2022-07-31 15:20:04 [facility] (CW/PW/COLOR) [facility] ECG 12-LEAD 2022-07-31 15:01:36 [facility] ECG 12-LEAD 2022-07-31 15:01:36 Unknown, Hl7 [facility] ENDOVAGINAL EV 2022-07-31 12:52:00 [facility] US PELVIS 2022-07-31 12:52:00 [facility] US DOPPLER 2022-07-31 12:52:00 [facility] Center BASIC METABOLIC PANEL 2022-07-31 03:09:00 Futclyde [place] [facility] Medical An Center MAGNESIUM 2022-07-31 03:09:00 Pieronoran [place] Pis [facility] An Center PHOSPHORUS 2022-07-31 03:09:00 [facility] [place] [facility] An Center CBC W/PLT COUNT & AUTO 2022-07-31 03:09:00 [facility] [place] [facility] DIFFERENTIAL An Center LIPID PANEL 2022-07-31 03:09:00 Judy Barros [facility] CBC W/PLT COUNT & AUTO 2022-07-31 03:09:00 [facility] [place] [facility] DIFFERENTIAL An Center XR CHEST 1 VIEW PORTABLE 2022-07-30 16:42:00 TommieYulissaille P is [facility] / BEDSIDE An Center CBC W/PLT COUNT & AUTO 2022-07-30 15:38:00 [facility] [place] [facility] DIFFERENTIAL An Center BASIC METABOLIC PANEL 2022-07-30 15:38:00 [facility] [place] [facility] PROTHROMBIN TIME/INR 2022-07-30 15:38:00 [facility] [place] [facility] An Center MAGNESIUM 2022-07-30 15:38:00 [facility] [place] [facility] Center CBC W/PLT COUNT & AUTO 2022-07-30 15:38:00 Dayron Foster [facility] Medical DIFFERENTIAL [facility] Plan of Care Planned Activity Planned Date Details Comments Source Future Scheduled 2025-07-31 Lipid panel (procedure) [facility] 00:00:00 [code = 41395607] Medical Ce nter Future Scheduled 2025-07-31 Lipid panel (procedure) [facility] 00:00:00 [code = 95024610] Medical Ce nter Future Scheduled 2025-07-31 Lipid panel (procedure) [facility] 00:00:00 [code = 78458441] Medical Ce nter Future Scheduled 2025-07-31 Lipid panel (procedure) [facility] 00:00:00 [code = 89747674] Medical Ce nter Future Scheduled 2025-07-31 Lipid panel (procedure) [facility] 00:00:00 [code = 18520164] Medical Ce nter Future Scheduled 2025-07-31 Lipid panel (procedure) [facility] 00:00:00 [code = 00400092] Medical Ce nter Future Scheduled 2025-07-31 Lipid panel (procedure) [facility] 00:00:00 [code = 39391483] Medical Ce nter Future Scheduled 2025-07-31 Lipid panel (procedure) [facility] 00:00:00 [code = 55224235] Medical Ce nter Future Scheduled 2025-07-31 Lipid panel (procedure) [facility] 00:00:00 [code = 07369556] Medical Ce nter Future Scheduled 2022-11-16 Influenza [...] [facility] 00:00:00 [code = 06031569] Medical Ce nter Future Scheduled 2021-03-[address] [facility] 00:00:00 (12+) [code = DEPRESSION Med ical Center SCREENING (12+)] Future Scheduled 2020-02-[address] [facility] 00:00:00 Counseling and Screening [facility] (12+) [code = Tobacco Cessation Counseling and Screening (12+)] Future Scheduled 1997 Screening for malignant [facility] 00:00:00 neoplasm of cervix Medical C enter (procedure) [code = 861390473] Future Scheduled 1997 Screening for malignant [facility] 00:00:00 neoplasm of cervix Medical C enter (procedure) [code = 509051667] Future Scheduled 1997 Screening for malignant [facility] 00:00:00 neoplasm of cervix Medical C enter (procedure) [code = 941969102] Future Scheduled 1997 Screening for malignant [facility] 00:00:00 neoplasm of cervix Medical C enter (procedure) [code = 682010240] Future Scheduled 1997 Screening for malignant [facility] 00:00:00 neoplasm of cervix Medical C enter (procedure) [code = 114424089] Future Scheduled 1997 Screening for malignant [facility] 00:00:00 neoplasm of cervix Medical C enter (procedure) [code = 552559677] Future Scheduled 1997 Screening for malignant [facility] 00:00:00 neoplasm of cervix Medical C enter (procedure) [code = 348779278] Future Scheduled 1997 Screening for malignant [facility] 00:00:00 neoplasm of cervix Medical C enter (procedure) [code = 355603015] Future Scheduled 1997 Screening for malignant [facility] 00:00:00 neoplasm of cervix Medical C enter (procedure) [code = 647001689] Future Scheduled 1997 Screening for malignant [facility] 00:00:00 neoplasm of cervix Medical C enter (procedure) [code = 050319244] Future Scheduled 1995 DTAP/TDAP/TD VACCINES (1 [facility] [...] screening Medical Cent er (procedure) [code = 769942771] Future Scheduled [address] [facility]00 virus screening Medical Cent er (procedure) [code = 216686995] Future Scheduled [address] Human immunodeficiency [facility] 00:00:00 virus screening Medical Cent er (procedure) [code = 691262133] Future Scheduled [address] Human immunodeficiency [facility] 00:00:00 virus screening Medical Cent er (procedure) [code = 763165515] Future Scheduled [address] Human immunodeficiency [facility] 00:00:00 virus screening Medical Cent er (procedure) [code = 498940485] Future Scheduled [address] Human immunodeficiency [facility] 00:00:00 virus screening Medical Cent er (procedure) [code = 368711412] Future Scheduled [address] Human immunodeficiency [facility] 00:00:00 virus screening Medical Cent er (procedure) [code = 064474467] Future Scheduled [address] Human [facility] 00:00:00 virus screening Medical Cent er (procedure) [code = 573557778] Future Scheduled [address] [facility] 00:00:00 virus screening Medical Cent er (procedure) [code = 797695322] Future Scheduled [address] [facility]] [facility] Future Scheduled 1976 CT Colonography (combo) [facility] 00:00:00 [code = CT [facility] (combo)] Future Scheduled 1976 Screening for malignant [facility] 00:00:00 neoplasm of colon Medical Ce nter (procedure) [code = 532967425] Future Scheduled 1976 Screening for malignant [facility] 00:00:00 neoplasm of colon Medical Ce nter (procedure) [code = 503612430] Future Scheduled 1976 Screening for malignant [facility] 00:00:00 neoplasm of colon Medical Ce nter (procedure) [code = 370343279] Future Scheduled 1976 Screening for malignant [facility] 00:00:00 neoplasm of colon Medical Ce nter (procedure) [code = 885575472] Future Scheduled 1976 Sigmoidoscopy [code = [facility]oscopy] Medical Cente r Future Scheduled 1976 CT Colonography (combo) [facility] 00:00:00 [code = CT [facility] ([facility]bo)] Future Scheduled 1976 Screening for malignant [facility] 00:00:00 neoplasm of colon Medical Ce nter (procedure) [code = 848758247] Future Scheduled 1976 Screening for malignant [facility] 00:00:00 neoplasm of colon Medical Ce nter (procedure) [code = 366481564] Future Scheduled 1976 Screening for malignant [facility] 00:00:00 neoplasm of colon Medical Ce nter (procedure) [code = 241071765] Future Scheduled 1976 Screening for malignant [facility] 00:00:00 neoplasm of colon Medical Ce nter (procedure) [code = 500257785] Future Scheduled 1976 Sigmoidoscopy [facility]code = [facility] S[facility]oscopy] Medical Cente r Future Scheduled 1976 CT Colonography (combo) [facility] 00:00:00 [code = CT Colonography [facility] (combo)] Future Scheduled 1976 Screening for malignant [facility] 00:00:00 neoplasm of colon Medical Ce nter (procedure) [code = 606694208] Future Scheduled 1976 Screening for malignant [facility] 00:00:00 neoplasm of colon Medical Ce nter (procedure) [code = 440382180] Future Scheduled 1976 Screening for malignant [facility] 00:00:00 neoplasm of colon Medical Ce nter (procedure) [code = 052150188] Future Scheduled 1976 Screening for malignant [facility] 00:00:00 neoplasm of colon Medical Ce nter (procedure) [code = 672130641] Future Scheduled 1976 Sigmoidoscopy [facility]code = [facility]oscopy] Medical Cente r Future Scheduled 1976 CT Colonography (combo) [facility] 00:00:00 [code = CT Colonography [facility] (combo)] Future Scheduled 1976 Screening for malignant [facility] 00:00:00 neoplasm of colon Medical Ce nter (procedure) [code = 253389586] Future Scheduled 1976 Screening for malignant [facility] 00:00:00 neoplasm of colon Medical Ce nter (procedure) [code = 768486367] Future Scheduled 1976 Screening for malignant [facility] 00:00:00 neoplasm of colon Medical Ce nter (procedure) [code = 878850083] Future Scheduled 1976 Screening for malignant [facility] 00:00:00 neoplasm of colon Medical Ce nter (procedure) [code = 821125384] Future Scheduled 1976 Sigmoidoscopy [code = [facility] S[facility]oscopy] Medical Cente r Future Scheduled 1976 CT Colonography (combo) [facility] 00:00:00 [code = CT [facility] (combo)] Future Scheduled 1976 Screening for malignant [facility] 00:00:00 neoplasm of colon Medical Ce nter (procedure) [code = 741873838] Future Scheduled 1976 Screening for malignant [facility] 00:00:00 neoplasm of colon Medical Ce nter (procedure) [code = 057613282] Future Scheduled 1976 Screening for malignant [facility] 00:00:00 neoplasm of colon Medical Ce nter (procedure) [code = 222825445] Future Scheduled 1976 Screening for malignant [facility] 00:00:00 neoplasm of colon Medical Ce nter (procedure) [code = 830713745] Future Scheduled 1976 Sigmoidoscopy [facility]code = [facility]oscopy] Medical Cente r Future Scheduled 1976 CT Colonography (combo) [facility] 00:00:00 [code = CT [facility] (combo)] Future Scheduled 1976 Screening for malignant [facility] 00:00:00 neoplasm of colon Medical Ce nter (procedure) [code = 841304237] Future Scheduled 1976 Screening for malignant [facility] 00:00:00 neoplasm of colon Medical Ce nter (procedure) [code = 902653290] Future Scheduled 1976 Screening for malignant [facility] 00:00:00 neoplasm of colon Medical Ce nter (procedure) [code = 082066317] Future Scheduled 1976 Screening for malignant [facility] 00:00:00 neoplasm of colon Medical Ce nter (procedure) [code = 032828071] Future Scheduled 1976 Sigmoidoscopy [facility]code = [facility]oscopy] Medical Cente r Future Scheduled 1976 CT Colonography (combo) [facility] 00:00:00 [code = CT [facility] (combo)] Future Scheduled 1976 Screening for malignant [facility] 00:00:00 neoplasm of colon Medical Ce nter (procedure) [code = 784323601] Future Scheduled 1976 Screening for malignant [facility] 00:00:00 neoplasm of colon Medical Ce nter (procedure) [code = 353695018] Future Scheduled 1976 Screening for malignant [facility] 00:00:00 neoplasm of colon Medical Ce nter (procedure) [code = 638711424] Future Scheduled 1976 Screening for malignant [facility] 00:00:00 neoplasm of colon Medical Ce nter (procedure) [code = 698038088] Future Scheduled 1976 Sigmoidoscopy [facility]code = [facility]oscopy] Medical Cente r Future Scheduled 1976 CT Colonography (combo) [facility] 00:00:00 [code = CT Colonography [facility] (combo)] Future Scheduled 1976 Screening for malignant [facility] 00:00:00 neoplasm of colon Medical Ce nter (procedure) [code = 131453789] Future Scheduled 1976 Screening for malignant [facility] 00:00:00 neoplasm of colon Medical Ce nter (procedure) [code = 158782117] Future Scheduled 1976 Screening for malignant [facility] 00:00:00 neoplasm of colon Medical Ce nter (procedure) [code = 515120714] Future Scheduled 1976 Screening for malignant [facility] 00:00:00 neoplasm of colon Medical Ce nter (procedure) [code = 384328670] Future Scheduled 1976 Sigmoidoscopy [facility]code = [facility] S[facility]oidoscopy] Medical Cente r Future Scheduled 1976 CT Colonography (combo) [facility] 00:00:00 [code = CT [facility]ography [facility] (combo)] Future Scheduled 1976 Screening for malignant [facility] 00:00:00 neoplasm of colon Medical Ce nter (procedure) [code = 506371081] Future Scheduled 1976 Screening for malignant [facility] 00:00:00 neoplasm of colon Medical Ce nter (procedure) [code = 078192593] Future Scheduled 1976 Screening for malignant [facility] 00:00:00 neoplasm of colon Medical Ce nter (procedure) [code = 052343867] Future Scheduled 1976 Screening for malignant [facility] 00:00:00 neoplasm of colon Medical Ce nter (procedure) [code = 585665515] Future Scheduled 1976 Sigmoidoscopy [facility]code = [facility] S[facility]oidoscopy] Medical Cente r Future Scheduled 1976 CT Colonography (combo) [facility] 00:00:00 [code = CT Colonography [facility] (combo)] Future Scheduled 1976 Screening for malignant [facility] 00:00:00 neoplasm of colon Medical Ce nter (procedure) [code = 196065378] Future Scheduled 1976 Screening for malignant [facility] 00:00:00 neoplasm of colon Medical Ce nter (procedure) [code = 543178228] Future Scheduled 1976 Screening for malignant [facility] 00:00:00 neoplasm of colon Medical Ce nter (procedure) [code = 477390373] Future Scheduled 1976 Screening for malignant [facility] 00:00:00 neoplasm of colon Medical Ce nter (procedure) [code = 226087551] Encounters Start End Encounter Admission Attending Care Care Encounter Source Date/Time Date/Time Type Type Clinicians Facility Department ID 2022-11-07 Inpatient ER MIR ARITA [facility] [id number] [facility] 19:39:43 2022-11-06 Inpatient ER JUJU TAI [facility] [id number] [facility] 11:21:11 2022-11-06 Inpatient ER JUJU TAI [facility] [id number] [facility] 10:39:32 2022-11-05 Inpatient ER JUJU TAI [facility] [id number] SLEH 13:31:19 2022-11-03 Inpatient ER JUJU TAI [facility] [id number] SLEH 10:45:25 2022-11-01 Inpatient ER SLEH SLEH [id number] SLEH 09:28:17 2022-11-01 Inpatient ER SLEH [facility] [id number] [facility] 09:11:47 2022-10-31 Inpatient ER BERSHAD, [facility]H [facility] [id number] [facility] 00:51:03 KATHY 2022-10-31 Inpatient ER BERSHAD, SLEH [facility] [id number] SLEH 00:50:54 KATHY 2022-10-30 Inpatient ER SLEH SLEH [id number] SLEH 15:54:13 2022-10-30 Inpatient ER BERSHAD, SLEH [facility]H [id number] SLEH 09:14:25 KATHY 2022-10-30 Inpatient ER BERSHAD, SLEH SLEH [id number] SLEH 05:26:11 KATHY 2022-10-29 Inpatient ER BERSHAD, SLEH [facility]H [id number] SLEH 17:09:25 KATHY 2022-10-29 Inpatient ER PITTARD, SLEH SLEH [id number] SLEH 03:50:03 MURRAY 2023-01-31 2023-01-31 Outpatient SFA SFA [id number] Martin 15:10:33 15:10:33 1116 F Tello 2023-01-29 2023-01-29 [facility] 1.2.840.114 [id number] Univers 00:00:00 00:00:00 (Out) Cardiology HEALTH 350.1.13.10 ity of - [place] [phone] [facility] MEDICAL [address] OFFICE BUILDING 2023-01-24 2023-01-24 Orders Doctor YAIMA 1.2.840.114 [id number] Univers 00:00:00 00:00:00 Only Unassigned, VLAD 350.1.13.10 ity of [place] [facility] 4.2.7.2.686 Anthony as [phone] [facility] [address] 2023-01-22 2023-01-22 Outpatient [facility] [id number] Martin 08:26:51 08:26:51 1107 F [place] 2022-12-27 2022-12-27 Outpatient [facility] [id number] Martin 10:33:43 10:33:43 1012 F [place] 2022-11-29 2022-11-29 Transition MONSE Sotelo 1.2.840.114 [id number] Univers 00:00:00 00:00:00 of Care Desi REDDY 350.1.13.10 [place] [id number] [facility] [address] 2022-11-24 2022-11-28 [facility] [place] 1.2.840.114 [id number] Univers 11:15:00 21:45:00 Encounter Ryne Yoder 350.1.13.1 0 ity of [place] [facility] 4.2.7.2.686 [place] [id number] [facility] [address] 2022-11-24 2022-11-28 Inpatient U BEBA [facility] [id number] Univers 11:15:00 21:45:00 RYNE ity [facility] 2022-11-24 2022-11-28 Inpatient U BEBA [facility] [id number] Univers 11:15:00 21:45:00 RYNE ity [facility] 2022-10-29 2022-11-13 Inpatient ER MERCHANT, [facility] Neurology [id number] SLE[facility] 02:56:00 21:30:00 GOYO 2022-10-29 2022-11-13 [facility] ER Santiago Whiteside [facility] [id number] [facility] 02:56:00 21:30:00 Kathy Espinosa [facility] Alyssa, Bessy Tai, Juju [facility], Amanda Arita, Mir Hankins, [place] 2022-11-06 2022-11-06 Inpatient ER SLEH SLEH [id number] SLEH 08:32:27 00:00:00 2022-11-06 2022-11-06 Orders [facility] [id number] 00:00:00 00:00:00 [facility] 2022-11-05 2022-11-05 Outpatient SLEH SLEH [id number] [facility] 00:00:00 00:00:00 2022-11-05 2022-11-05 Outpatient SLEH SLEH [id number] [facility]H 00:00:00 00:00:00 2022-11-02 2022-11-02 Inpatient ER JUJU TAI [facility] SLEH [id number] SLEH 10:58:08 00:00:00 2022-10-29 2022-10-29 Inpatient ER PITTARD, SLEH SLEH [id number] SLEH 10:12:32 23:59:00 [facility] 2022-10-29 2022-10-29 [facility] [id number] [facility] 09:35:00 23:59:00 [place] Rahul [facility] 2022-10-29 2022-10-29 Inpatient ER PITTARD, SLEH SLEH [id number] SLEH 10:12:49 00:00:00 MURRAY 2022-10-29 2022-10-29 Inpatient ER PITTARD, SLEH SLEH [id number] SLEH 10:12:41 00:00:00 MURRAY 2022-10-29 2022-10-29 Orders [facility] [id number] 00:00:00 00:00:00 Only [facility] 2022-08-12 2022-08-12 Telephone Gregory [facility] [id number] 00:00:00 00:00:00 [facility] 2022-08-05 2022-08-11 Inpatient ER [facility] Gynecology [id number] SLE 18:09:00 14:47:00 [facility] 2022-08-05 2022-08-11 Hospital ER Popeye Mcneal [facility] [id number] 18:09:00 14:47:00 Encounter Aida [facility] 2022-08-05 2022-08-[address] [facility] [id number] [facility] 00:00:00 00:00:00 [facility] 2022-07-31 2022-08-03 In[facility] [id number] [facility] 04:37:00 20:00:00 [facility] 2022-07-31 2022-08-03 Hospital UR Les Al [facility] [id number] 04:37:00 20:00:00 Encounter Nena [facility], [place] Leonid Harris S[place] 2022-07-30 2022-07-31 Inpatient ER [facility] Gynecology [id number] [facility] 14:07:00 04:04:00 DAYRON 2022-07-30 2022-07-31 Hospital ER [facility], [facility] [id number] 14:07:00 04:04:00 Encounter Dayron vitale [facility] 2022-07-31 2022-07-31 Orders [facility] [id number] 00:00:00 00:00:00 Only [facility] 2022-07-30 2022-07-[address] [facility] [id number] [facility] 00:00:00 00:00:00 [facility] Results Test Description Test Time Test Comments Results Result Comments Source HEPATIC FUNCTION PANEL (34348) (ALB,T.PRO,BILI 2022-11-26 13 :08:17 T,BU/BC,ALT,AST,ALK PHOS) Test Item Value Reference Range Interpretation Comme nts TOTAL BILI (test code = 1823108941) 0.9 mg/dL 0.1-1.1 BILI UNCON (test code = 8547543611) 0.6 mg/dL 0.1-1.1 BILI CONJ (test code = 5772803783) 0.0 mg/dL 0.0-0.3 T PROTEIN (test code = 4066712733) 6.5 g/dL 6.3-8.2 ALBUMIN (test code = 2157096392) 4.0 g/dL 3.5-5.0 ALK PHOS (test code = 8955602454) 527 U/L 34-122 H ALTv (test code = 1742-6) 116 U/L 5-35 H AST(SGOT) (test code = 2758943538) 76 U/L 13-40 H Lab Interpretation (test code = 96300-8) [facility]normal [facility] (NA, K, CL, CO2, GLUCOSE, BUN, CREATININE, CA)2022-11-26 10:08:01 Test Item Value Reference Range Interpretation Comments NA (test code = 136 mmol/L 135-145 4293286122) K (test code = 4.1 mmol/L 3.5-5.0 8209204785) CL (test code = 100 mmol/L 98-108 4666915546) CO2 TOTAL (test code 28 mmol/L 23-31 = 0073835765) AGAP (test code = 8 2-16 9534950800) BUN (test code = 17 mg/dL 7-23 0207185202) GLUCOSE (test code = 87 mg/dL 70-110 6972859003) CREATININE (test code 1.00 mg/dL 0.50-1.04 = 0390002166) CALCIUM (test code = 9.3 mg/dL 8.6-10.6 6927014798) eGFR (test code = 59.7 mL/min/1.73m2 5558476310) SUE (test code = SUE) Association of [...] or urine or abnormalities in imaging tests). [facility] Test Item Value Reference Range Interpretation Comments MAGNESIUM (test code = 2878104965) 1.8 mg/dL 1.7-2.4 Lab Interpretation (test code = Normal 73159-9) [facility] WITH [id number] 09:36:22 Test Item Value Reference Range Interpretation Comments WBC (test code = 4.18 See_Comment L [Automated 1890-2) message] The sy stem which generated this [...] RDW-SD (test code = 42.7 fL 39.0-49.9 98250-4) RDW-CV (test code = 12.5 % 12.0-15.5 788-0) PLT (test code = 151 See_Comment L [Automated 777-3) message] The sy stem which generated this result transmitted reference range : 166 - 358 10*3/ ?L. The reference r elizabeth was not used to interpret this result as normal/abnormal . MPV (test code = 9.4 fL 9.5-12.9 L 85827-9) NRBC/100 WBC (test 0.0 See_Comment [Automat ed code = 5753421549) message] The system which generated this result transmitted reference range : 0.0 - 10.0 /100 WBCs. The refer ence range was not u sed to interpret th is result as normal/abnormal . NRBC x10^3 (test code See_Comment [Auto mated = 2005289280) message] The s ystem which generated this result transmitted reference range : 10*3/?L. The reference range was not used to interpret this result as normal/abnormal . GRAN MAT (NEUT) % 68.0 % (test code = 770-8) IMM GRAN % (test code 0.00 % = 3554845783) LYMPH % (test code = 17.7 % 736-9) MONO % (test code = 9.1 % 5905-5) EOS % (test code = 4.5 % 713-8) BASO % (test code = 0.7 % 706-2) GRAN MAT x10^3(ANC) 2.84 10*3/uL 1.88-7.09 (test code = 9723471433) IMM GRAN x10^3 (test 0.00-0.06 code = 5837427635) LYMPH x10^3 (test code 0.74 10*3/uL 1.32-3.29 L = 731-0) MONO x10^3 (test code 0.38 10*3/uL 0.33-0.92 = 742-7) EOS x10^3 (test code = 0.19 10*3/uL 0.03-0.39 711-2) BASO x10^3 (test code 0.03 10*3/uL 0.01-0.07 = 704-7) Lab Interpretation Abnormal (test code = 44252-2) [facility] METABOLIC PANEL (NA, K, CL, CO2, GLUCOSE, BUN, CREATININE, CA)2022-11-25 09:47:18 Test Item Value Reference Range Interpretation Comments NA (test code = 135 mmol/L 135-145 5441327255) K (test code = 5.0 mmol/L 3.5-5.0 Slight 3460522266) hemolysis CL (test code = 100 mmol/L 98-108 3049567049) CO2 TOTAL (test code 28 mmol/L 23-31 = 5636432291) AGAP (test code = 7 2-16 0248472649) BUN (test code = 20 mg/dL 7-23 Slight 4304088727) hemolysis GLUCOSE (test code = 109 mg/dL 70-110 8308986164) CREATININE (test code 1.20 mg/dL 0.50-1.04 H = 7389129759) CALCIUM (test code = 9.2 mg/dL 8.6-10.6 3994055983) eGFR (test code = 48.4 mL/min/1.73m2 5681902520) SUE (test code = SUE) Association of [...] tests). Lab Interpretation Abnormal (test code = 76513-4) [facility]55 Test Item Value Reference Range Interpretation Comments MAGNESIUM (test code = 6071489715) 3.1 mg/dL 1.7-2.4 H Lab Interpretation (test code = Abnormal 61136-5) [facility]TIBODY [id number] 23:52:42 Test Item Value Reference Range Interpretation Comments HAVM 0.05 Semi-Quantitative (test code = 22104-0) SUE (test code = HAVAb IgM Interpretative SUE) Information: Reactive greater than or equal to 1.2 Biotin has been reported to cause a negative bias, interpret results relative to patient's use of biotin. [facility] [id number] 23:35:43 Test Item Value Reference Range Interpretation Comments TROPONIN I (test code = 0.911 ng/mL <=0.034 H 2734132570) SUE (test code = SUE) Reference (Normal) [...] biotin. Lab Interpretation Abnormal (test code = 50847-5) [facility]-AB WITH [id number] 21:57:58 Test Item Value Reference Range Interpretation Comments HIV 0.12 Negative Semi-quantitative (test code = 77877-6) SUE (test code = Non-reactive for HIV-1 SUE) antigen and HIV-1/HIV-2 antibodies. ?No laboratory evidence of HIV infection. ?Repeat in 2-4 weeks if acute HIV infection is suspected. [facility] [id number] 21:57:58 Test Item Value Reference Range Interpretation Comments HCV Ab (test code = 27692-2) Negative HCV Semi-Quantitative (test code = 0.01 33962-4) [facility] [id number] 21:57:58 Test Item Value Reference Range Interpretation Comments HBsAB (test code = Negative 1595721852) HBsAb 0.00 mIU/mL Semi-Quantitative (test code = 2833817502) SUE (test code = Interpretation: SUE) ?Hepatitis B Surface Antibody ? Negative - Patient is considered to be not immune to infection with HBV. ? ? Positive - Anti-HBs detected at greater than or equal to 12 mIU/mL. ?Patient is considered to be immune to infection with HBV. ? [facility] [id number] 21:40:35 Test Item Value Reference Range Interpretation Comments HBsAg Semi-Quantitative (test code = 0.14 Negative 5195-3) [facility]EMOGLOBIN (A1C)2022-11-24 18:18:35 Test Item Value Reference Range Interpretation Comments HGB A1C (test code = 4.6 % 4.0-5.7 4548-4) SUE (test code = SUE) Reference RangesNormal: <5.7%Prediabetes: 5.7 - 6.4%Diabetes: > 6.5% Lab Interpretation (test Normal code = 41082-7) [facility] [id number] 17:58:24 Test Item Value Reference Range Interpretation Comments TSH (test code = 2.03 See_Comment [Automated message] [id number]) The system Ryst[employer] generated this result transmitted ref erence range: 0.45 - 4 .70 mIU/L. The refe rence range was not u sed to interpret this result as normal/abnor mal. Lab Interpretation (test Normal code = 74006-6) [facility] [id number] 17:39:48 Test Item Value Reference Range Interpretation Comments TROPONIN I (test code = 1.340 ng/mL <=0.034 H 0362031766) SUE (test code = SUE) Reference (Normal) [...] biotin. Lab Interpretation Abnormal (test code = 27845-3) [facility]N-[facility]MINAL [id number] 17:39:48 Test Item Value Reference Range Interpretation Comments NT-proBNP (test code = 2520 pg/mL <=125 H 31935-2) SUE (test code = SUE) Positive: Heart Failure Likely Lab Interpretation (test Abnormal code = 08367-8) [facility] (NA, K, CL, CO2, GLUCOSE, BUN, CREATININE, CA)2022-11-24 17:30:04 Test Item Value Reference Range Interpretation Comments NA (test code = 135 mmol/L 135-145 6274798713) K (test code = 3.9 mmol/L 3.5-5.0 3048650373) CL (test code = 97 mmol/L 98-108 L 1133354525) CO2 TOTAL (test code = 27 mmol/L 23-31 3613561528) AGAP (test code = 11 2-16 6544287147) BUN (test code = 23 mg/dL 7-23 1005482157) GLUCOSE (test code = 163 mg/dL 70-110 H 6830047519) CREATININE (test code = 1.40 mg/dL 0.50-1.04 H 1805717282) CALCIUM (test code = 9.4 mg/dL 8.6-10.6 4016727033) eGFR (test code = 40.5 mL/min/1.73m2 1777103598) SUE (test code = SUE) Association of [...] tests). Lab Interpretation Abnormal (test code = 82300-9) [facility] (75485[facility] (ALB,T.PRO,BILI T,BU/BC,ALT,AST,ALK PHOS)2022-11-24 17:30:04 Test Item Value Reference Range Interpretation Comments TOTAL BILI (test code = 1709553806) 1.0 mg/dL 0.1-1.1 BILI UNCON (test code = 9719597446) 0.6 mg/dL 0.1-1.1 BILI CONJ (test code = 8096375273) 0.0 mg/dL 0.0-0.3 T PROTEIN (test code = 7846851119) 6.8 g/dL 6.3-8.2 ALBUMIN (test code = 6884054935) 4.1 g/dL 3.5-5.0 ALK PHOS (test code = 8245310494) 746 U/L 34-122 H ALTv (test code = 1742-6) 183 U/L 5-35 H AST(SGOT) (test code = 8692996402) 196 U/L 13-40 H Lab Interpretation (test code = Abnormal 29874-9) [facility]LIP[facility] PANEL (00430)(TOTAL CHOLESTEROL, TRIGLYCERIDES, HDL)2022-11-24 17:30:04 Test Item Value Reference Range Interpretation Comments CHOL (test code = 8251995810) 113 mg/dL 120-200 L HDL (test code = 1965446350) 62 mg/dL >=50 HDLC RATIO (test code = 4490489724) 1.8 <=4.5 TRIG (test code = 3454234977) 71 mg/dL 30-170 LDL CHOL (test code = 63192-3) 37 mg/dL <=160 VLDL (test code = 5285548456) 14 mg/dL 5-60 Lab Interpretation (test code = Abnormal 30204-8) [facility] WITH [id number] 16:55:22 Test Item Value Reference Range Interpretation Comments WBC (test code = 6.05 See_Comment [Automated 3667-2) message] The sy stem which generated this result transmitted reference range : 4.30 - 11.10 10*3/?L. The reference range was not used to interpret this result as normal/abnormal . RBC (test code = 3.21 See_Comment L [Automated 285-8) message] The sy stem which generated this [...] RDW-SD (test code = 44.3 fL 39.0-49.9 33833-5) RDW-CV (test code = 12.9 % 12.0-15.5 788-0) PLT (test code = 203 See_Comment [Automated 777-3) message] The sy stem which generated this result transmitted reference range : 166 - 358 10*3/ ?L. The reference r elizabeth was not used to interpret this result as normal/abnormal . MPV (test code = 9.9 fL 9.5-12.9 51294-6) NRBC/100 WBC (test 0.0 See_Comment [Automat ed code = 8606328610) message] The system which generated this result transmitted reference range : 0.0 - 10.0 /100 WBCs. The refer ence range was not u sed to interpret th is result as normal/abnormal . NRBC x10^3 (test code See_Comment [Auto mated = 6992055480) message] The s ystem which generated this result transmitted reference range : 10*3/?L. The reference range was not used to interpret this result as normal/abnormal . GRAN MAT (NEUT) % 59.6 % (test code = 770-8) IMM GRAN % (test code 0.20 % = 7033986884) LYMPH % (test code = 28.3 % 736-9) MONO % (test code = 9.1 % 5905-5) EOS % (test code = 2.5 % 713-8) BASO % (test code = 0.3 % 706-2) GRAN MAT x10^3(ANC) 3.61 10*3/uL 1.88-7.09 (test code = 8448817240) IMM GRAN x10^3 (test 0.00-0.06 code = 9753432482) LYMPH x10^3 (test code 1.71 10*3/uL 1.32-3.29 = 731-0) MONO x10^3 (test code 0.55 10*3/uL 0.33-0.92 = 742-7) EOS x10^3 (test code = 0.15 10*3/uL 0.03-0.39 711-2) BASO x10^3 (test code 0.01-0.07 = 704-7) Lab Interpretation Abnormal (test code = 02386-1) [facility]-Glucose [id number] 12:43:54 Test Item Value Reference Range Interpretation Comments POC-Glucose Meter (test 138 mg/dL 70-110 H : TE STED AT [facility] code = 1538) [address] [place] [address], [facility] 30: Crime Investigator Special Agent/Techni smiley ID = [id number] for IVÁN, FERMIN [place] Lab Interpretation (test Abnormal code = 01996-6) [place] [facility]-Glucose [id number] 12:43:54 Test Item Value Reference Range Interpretation Comments POC-Glucose Meter (test 138 mg/dL 70-110 H : TE STED AT [facility] code = 1538) [address] [place] [address], [facility] 30: Crime Investigator Special Agent/Techni smiley ID = [id number] for IVÁN, FERMIN [place] Lab Interpretation (test Abnormal code = 86906-6) [facility]-Glucose [id number] 12:43:54 Test Item Value Reference Range Interpretation Comments POC-Glucose Meter (test 138 mg/dL 70-110 H : TE STED AT [facility] code = 1538) [address] [place] [address], [facility] 30: Crime Investigator Special Agent/Techni smiley ID = [id number] for IVÁN, FERMIN [place] Lab Interpretation (test Abnormal code = 96891-8) [facility]-Glucose [id number] 12:43:54 Test Item Value Reference Range Interpretation Comments POC-Glucose Meter (test 138 mg/dL 70-110 H : TE STED AT [facility] code = 1538) [address] [place] [address], [facility] 30: Crime Investigator Special Agent/Techni smiley ID = [id number] for IVÁN, FERMIN [place] Lab Interpretation (test Abnormal code = 75023-7) [facility]-Glucose [id number] 12:43:54 Test Item Value Reference Range Interpretation Comments POC-Glucose Meter (test 138 mg/dL 70-110 H : TE STED AT [facility] code = 1538) [address] [place] [address], [facility] 30: Crime Investigator Special Agent/Techni smiley ID = [id number] for IVÁN, FERMIN [place] Lab Interpretation (test Abnormal code = 01843-2) [facility]-Gl[facility] [id number] 12:43:54 Test Item Value Reference Range Interpretation Comments POC-Glucose Meter (test 138 mg/dL 70-110 H : TE STED AT [facility] code = 1538) [address] [place] [address], [facility] 30: Crime Investigator Special Agent/Techni smiley ID = [id number] for IVÁN, FERMIN [place] Lab Interpretation (test Abnormal code = 76660-9) [facility]-Glucose [id number] 12:43:54 Test Item Value Reference Range Interpretation Comments POC-Glucose Meter (test 138 mg/dL 70-110 H : TE STED AT [facility] code = 1538) [address] [place] [address], 770 30: Crime Investigator Special Agent/Techni smiley ID = [id number] for IVÁN, FERMIN [place] Lab Interpretation (test Abnormal code = 69051-2) [facility]-Glucose [id number] 12:43:54 Test Item Value Reference Range Interpretation Comments POC-Glucose Meter (test 138 mg/dL 70-110 H : TE STED AT [facility] code = 1538) [address] [place] [address], [facility] 30: Crime Investigator Special Agent/Techni smiley ID = [id number] for IVÁN, FERMIN [place] Lab Interpretation (test Abnormal code = 42100-8) [facility]-GLUCOSE [id number] 12:43:54 Test Item Value Reference Range Interpretation Comments POC-GLUCOSE METER 138 mg/dL 70-110 H : TESTED A T [facility] 6720 (BEAKER) (test code = SRIRAMOTPHER Dunn [facility], 1538) [address]: Crime Investigator Special Agent/Techni smiley ID = [id number] for MANDA ESPARZA [id number] 06:54:19 Test Item Value Reference Range Interpretation Comments PHOSPHORUS (BEAKER) (test code = 4.2 mg/dL 2.3-4.7 604) Crime Investigator Special Agent ID - [id number] 06:54:18 Test Item Value Reference Range Interpretation Comments MAGNESIUM (BEAKER) (test code = 1.7 mg/dL 1.6-2.6 627) Crime Investigator Special Agent ID - ADMINCBC W/PLT COUNT & AUTO [id number] 06:00:54 Test Item Value Reference Range Interpretation [...] PERCENT (BEAKER) (test code = 2801) POCT-GLUCOSE [id number] 21:38:27 Test Item Value Reference Range Interpretation Comments POC-GLUCOSE METER 88 mg/dL 70-110 : TESTED A T [facility] 6720 (BEAKER) (test code = [facility], [facility]8) [address]: Crime Investigator Special Agent/Techni smiley ID = [id number] for NADEGE MORALES POCT-GLUCOSE [id number] 18:19:26 Test Item Value Reference Range Interpretation Comments POC-GLUCOSE METER 93 mg/dL 70-110 : TESTED A T [facility] 6720 (BEAKER) (test code = [facility], 1538) [address]: Crime Investigator Special Agent/Techni smiley ID = [id number] for NONA REESE, MANDA POCT-GLUCOSE [id number] 13:13:27 Test Item Value Reference Range Interpretation Comments POC-GLUCOSE METER 91 mg/dL 70-110 : TESTED A T [facility] 6720 (BEAKER) (test code = [facility], 153) [address]: Crime Investigator Special Agent/Techni smiley ID = [id number] for NONA REESE, MANDA BLOOD [id number] 12:00:51 Test Item Value Reference Range Interpretation Comments CULTURE (BEAKER) (test No growth in 5 days code = 1095) BLOOD [id number] 12:00:51 Test Item Value Reference Range Interpretation Comments CULTURE (BEAKER) (test No growth in 5 days code = 1095) The specimen volume collected for this blood culture was below the optimum (10 mL per bottle or 20 mL total). Use of lower volumes may adversely affect recovery and/or detection times of some organisms.POCT-GLUCOSE [id number] 06:46:01 Test Item Value Reference Range Interpretation Comments POC-GLUCOSE METER 102 mg/dL 70-110 : TESTED A T [facility] 6720 (BEAKER) (test code = [facility] [place], 1538) [address]: Crime Investigator Special Agent/Techni smiley ID = [id number] for Teresa Rose [id number] 05:48:23 Test Item Value Reference Range Interpretation Comments MAGNESIUM (BEAKER) (test code = 1.8 mg/dL 1.6-2.6 627) Crime Investigator Special Agent ID - [id number] 05:48:23 Test Item Value Reference Range Interpretation Comments PHOSPHORUS (BEAKER) (test code = 3.6 mg/dL 2.3-4.7 604) Crime Investigator Special Agent ID - MARCOBASIC METABOLIC [id number] 05:48:22 Test Item Value Reference Range Interpretation [...] not appl icable for dialysis patien ts Crime Investigator Special Agent ID - MARCOCBC W/PLT COUNT & AUTO [id number] 05:10:47 Test Item Value Reference Range Interpretation [...] PERCENT (BEAKER) (test code = 2801) POCT-GLUCOSE [id number] 23:44:35 Test Item Value Reference Range Interpretation Comments POC-GLUCOSE METER 93 mg/dL 70-110 : TESTED A T [facility] 6720 (BEAKER) (test code = [facility], 1538) 44677: Crime Investigator Special Agent/Techni smiley ID = [id number] for Teresa Camejo POCT-GLUCOSE [id number] 17:35:54 Test Item Value Reference Range Interpretation Comments POC-GLUCOSE METER 108 mg/dL 70-110 : TESTED A T [facility] 6720 (BEAKER) (test code = [facility], 1538) 830[address]: Crime Investigator Special Agent/Techni smiley ID = [id number] for Donna Rolle BLOOD [id number] 17:01:46 Test Item Value Reference Range Interpretation Comments CULTURE (BEAKER) (test No growth in 5 days code = 1095) The specimen volume collected for this blood culture was below the optimum (10 mL per bottle or 20 mL total). Use of lower volumes may adversely affect recovery and/or detection times of some organisms.POCT-GLUCOSE [id number] 13:41:35 Test Item Value Reference Range Interpretation Comments POC-GLUCOSE METER 99 mg/dL 70-110 : TESTED A T [facility] 6720 (BEAKER) (test code = [facility], 1538) [address]277: Crime Investigator Special Agent/Techni smiley ID = [id number] for Donna Baxter BLOOD [id number] 13:01:43 Test Item Value Reference Range Interpretation Comments CULTURE (BEAKER) (test No growth in 5 days code = 1095) POCT-GLUCOSE [id number] 07:21:17 Test Item Value Reference Range Interpretation Comments POC-GLUCOSE METER 110 mg/dL 70-110 : TESTED A T [facility] 6720 (BEAKER) (test code = [facility], 1538) [address]: Crime Investigator Special Agent/Techni smiley ID = [id number] for Teresa Rose BASIC METABOLIC [id number] 05:31:26 Test Item Value Reference Range Interpretation [...] not appl icable for dialysis patien ts Crime Investigator Special Agent ID - [id number] 05:31:26 Test Item Value Reference Range Interpretation Comments MAGNESIUM (BEAKER) (test code = 2.0 mg/dL 1.6-2.6 627) Crime Investigator Special Agent ID - [id number] 05:31:26 Test Item Value Reference Range Interpretation Comments PHOSPHORUS (BEAKER) (test code = 3.6 mg/dL 2.3-4.7 604) Crime Investigator Special Agent ID - MARCOCBC W/PLT COUNT & AUTO [id number] 04:56:52 Test Item Value Reference Range Interpretation [...] PERCENT (BEAKER) (test code = 2801) POCT-GLUCOSE [id number] 00:26:59 Test Item Value Reference Range Interpretation Comments POC-GLUCOSE METER 135 mg/dL 70-110 H : TESTED A T [facility] 6720 (BEAKER) (test code = [facility], 1538) [address]: Crime Investigator Special Agent/Techni smiley ID = [id number] for Teresa Rose POCT-GLUCOSE [id number] 17:22:27 Test Item Value Reference Range Interpretation Comments POC-GLUCOSE METER 127 mg/dL 70-110 H : TESTED A T [facility] 6720 (BEAKER) (test code = [facility], 1538) 10969: Crime Investigator Special Agent/Techni smiley ID = [id number] for Um eh, Akumbu POCT-GLUCOSE [id number] 17:20:21 Test Item Value Reference Range Interpretation Comments POC-GLUCOSE METER 23 mg/dL 70-110 LL : TESTED A T [facility] 6720 (BEAKER) (test code = [facility], 1538) 52431: Crime Investigator Special Agent/Techni smiley ID = [id number] for Umeh , Akumbu POCT-GLUCOSE [id number] 12:34:42 Test Item Value Reference Range Interpretation Comments POC-GLUCOSE METER 129 mg/dL 70-110 H : TESTED A T [facility] 6720 (BEAKER) (test code = [facility], 1538) 07331: Crime Investigator Special Agent/Techni smiley ID = [id number] for Um eh, Madhuumbu [id number] 08:08:41 Test Item Value Reference Range Interpretation Comments MAGNESIUM (BEAKER) (test code = 1.9 mg/dL 1.6-2.6 627) Crime Investigator Special Agent ID - [id number] 08:08:41 Test Item Value Reference Range Interpretation Comments PHOSPHORUS (BEAKER) (test code = 3.5 mg/dL 2.3-4.7 604) Crime Investigator Special Agent ID - ADMINBASIC METABOLIC [id number] 08:08:40 Test Item Value Reference Range Interpretation [...] not appl icable for dialysis patien ts Crime Investigator Special Agent ID - ADMINPOCT-GLUCOSE [id number] 07:08:26 Test Item Value Reference Range Interpretation Comments POC-GLUCOSE METER 119 mg/dL 70-110 H : TESTED A T [facility] 6720 (BEAKER) (test code = SRIRAMTOPHER Dunn [facility], 1538) [address]: Crime Investigator Special Agent/Techni smiley ID = [id number] for Teresa Rose CBC W/PLT COUNT & AUTO [id number] 06:25:01 Test Item Value Reference Range Interpretation [...] PERCENT (BEAKER) (test code = 2801) POCT-GLUCOSE [id number] 23:32:08 Test Item Value Reference Range Interpretation Comments POC-GLUCOSE METER 97 mg/dL 70-110 : TESTED A T [facility] 6720 (BEAKER) (test code = [facility], 153) [address]: Crime Investigator Special Agent/Techni smiley ID = [id number] for Teresa Camejo POCT-GLUCOSE [id number] 17:52:25 Test Item Value Reference Range Interpretation Comments POC-GLUCOSE METER 121 mg/dL 70-110 H : TESTED A T [facility] 6720 (BEAKER) (test code = [facility], 153) [address]38[address]: Crime Investigator Special Agent/Techni smiley ID = [id number] for An dermarium, Donna POCT-GLUCOSE [id number] 12:24:17 Test Item Value Reference Range Interpretation Comments POC-GLUCOSE METER 106 mg/dL 70-110 : TESTED A T [facility] 6720 (BEAKER) (test code = [facility] [place], 1538) [address]: Crime Investigator Special Agent/Techni smiley ID = [id number] for An Donna lucas VANCOMYCIN LEVEL, [id number] 10:00:44 Test Item Value Reference Range Interpretation Comments VANCOMYCIN TROUGH (BEAKER) (test 35.0 ug/mL 10.0-20.0 HH code = 522) Crime Investigator Special Agent ID - ADMINPOCT-GLUCOSE [id number] 06:04:34 Test Item Value Reference Range Interpretation Comments POC-GLUCOSE METER 98 mg/dL 70-110 : TESTED A T [facility] 6720 (BEAKER) (test code = [facility], 1538) [address]: Crime Investigator Special Agent/Techni smiley ID = [id number] for Andi Warren [id number] 04:34:22 Test Item Value Reference Range Interpretation Comments PHOSPHORUS (BEAKER) (test code = 4.3 mg/dL 2.3-4.7 604) Crime Investigator Special Agent ID - mmBASIC METABOLIC [id number] 04:34:21 Test Item Value Reference Range Interpretation [...] not appl icable for dialysis patien ts Crime Investigator Special Agent ID - [id number] 04:34:21 Test Item Value Reference Range Interpretation Comments MAGNESIUM (BEAKER) (test code = 2.0 mg/dL 1.6-2.6 627) Crime Investigator Special Agent ID - mmCBC W/PLT COUNT & AUTO [id number] 04:15:17 Test Item Value Reference Range Interpretation [...] PERCENT (BEAKER) (test code = 2801) POCT-GLUCOSE [id number] 00:10:22 Test Item Value Reference Range Interpretation Comments POC-GLUCOSE METER 102 mg/dL 70-110 : TESTED A T [facility] 6720 (BEAKER) (test code [facility], = 1538) [address]: Crime Investigator Special Agent/Techni smiley ID = [id number] for Andi Warren BASIC METABOLIC [id number] 19:00:42 Test Item Value Reference Range Interpretation [...] not appl icable for dialysis patien ts Crime Investigator Special Agent ID - JSPOCT-GLUCOSE [id number] 17:28:38 Test Item Value Reference Range Interpretation Comments POC-GLUCOSE METER 122 mg/dL 70-110 H : TESTED A T [facility] 6720 (BEAKER) (test [facility] = [facility], 1538) [address]: Crime Investigator Special Agent/Techni smiley ID = [id number] for An Donna lucas POCT-GLUCOSE [id number] 12:36:44 Test Item Value Reference Range Interpretation Comments POC-GLUCOSE METER 110 mg/dL 70-110 : TESTED A T [facility] 6720 (BEAKER) (test code = [facility] Mona [facility], 1538) [address]: Crime Investigator Special Agent/Techni smiley ID = [id number] for An Donna lucas [id number] 06:20:37 Test Item Value Reference Range Interpretation Comments MAGNESIUM (BEAKER) (test code = 2.2 mg/dL 1.6-2.6 627) Crime Investigator Special Agent ID - [id number] 06:20:37 Test Item Value Reference Range Interpretation Comments PHOSPHORUS (BEAKER) (test code = 3.9 mg/dL 2.3-4.7 604) Crime Investigator Special Agent ID - ADMINBASIC METABOLIC [id number] 06:20:36 Test Item Value Reference Range Interpretation [...] not appl icable for dialysis patien ts Crime Investigator Special Agent ID - ADMINPOCT-GLUCOSE [id number] 06:09:53 Test Item Value Reference Range Interpretation Comments POC-GLUCOSE METER 69 mg/dL 70-110 L : TESTED A T [facility] 6720 ([facility]) (test code = [facility], 1538) [address]: Crime Investigator Special Agent/Techni smiley ID = [id number] for Andi Warren CBC W/PLT COUNT & AUTO [id number] 05:15:05 Test Item Value Reference Range Interpretation [...] = 2801) XR abdomen / KUB 1 [id number] 21:59:17EXAM/TECHNIQUE: XR ABDOMEN/KUB 1 VIEW PORTABLE INDICATION: Confirm corpak placement COMPARISON: 11/05/2022. FINDINGS: Feeding tube terminates in the distal stomach. No dilated loops of largesmall bowel.No acute osseous process. Lung bases are clear.[facility] XR ABDOMEN/KUB 1 VIEW [id number] 21:59:17 [facility] : 1975 Sex: FEXAM/TECHNIQUE: XR ABDOMEN/KUB 1 VIEW PORTABLEINDICATION: Confirm corpak placementCOMPARISON: 11/05/2022.FINDINGS: Feeding tube terminates in the distal stomach. No dilated loops of largesmall bowel. No acute osseous process. Lung bases are clear.IMPRESSION:Feeding tube terminates in the distal stomach.Electronically Signed By: Calros Preciado11/07/2022 22:01 CDTWorkstation Name: [id number] METABOLIC [id number] 18:29:04 Test Item Value Reference Range Interpretation [...] not appl icable for dialysis patien ts Crime Investigator Special Agent ID - BSDrug screen, urine, [id number] 08:47:31 Test Item Value Reference Range Interpretation Comments Scan Result (test see scanned report See scanned report. code = 0178958) SUE (test code = see scanned report SUE) [facility], [id number] 08:47:31 Test Item Value Reference Range Interpretation Comments Scan Result (test see scanned report See scanned report. code = 2670573) SUE (test code = see scanned report SUE) [facility], [id number] 08:47:31 Test Item Value Reference Range Interpretation Comments Scan Result (test see scanned report See scanned report. code = 4270335) SUE (test code = see scanned report SUE) [facility], [id number] 08:47:31 Test Item Value Reference Range Interpretation Comments Scan Result (test see scanned report See scanned report. code = 2074187) SUE (test code = see scanned report SUE) [facility], [id number] 08:47:31 Test Item Value Reference Range Interpretation Comments Scan Result (test see scanned report See scanned report. code = 6702334) SUE (test code = see scanned report SUE) [facility], [id number] 08:47:31 Test Item Value Reference Range Interpretation Comments Scan Result (test see scanned report See scanned report. code = 7887134) SUE (test code = see scanned report SUE) [facility], [id number] 08:47:31 Test Item Value Reference Range Interpretation Comments Scan Result (test see scanned report See scanned report. code = 8406747) SUE (test code = see scanned report SUE) [facility], [id number] 08:47:31 Test Item Value Reference Range Interpretation Comments Scan Result (test see scanned report See scanned report. code = 4312803) SUE (test code = see scanned report SUE) [facility] URINE, [id number] 08:47:31 Test Item Value Reference Range Interpretation Comments SCAN RESULT (test see scanned report See scanned report. code = 9070098) see scanned reportPOCT-GLUCOSE [id number] 06:13:13 Test Item Value Reference Range Interpretation Comments POC-GLUCOSE METER 81 mg/dL 70-110 : TESTED A T [facility] 6720 (BEAKER) (test code = [place], 1538) [address]: Crime Investigator Special Agent/Techni smiley ID = [id number] for Jessica Rodrigues [id number] 04:03:55 Test Item Value Reference Range Interpretation Comments PHOSPHORUS (BEAKER) (test code = 4.8 mg/dL 2.3-4.7 H 604) Crime Investigator Special Agent ID - EMBASIC METABOLIC [id number] 04:03:54 Test Item Value Reference Range Interpretation [...] not appl icable for dialysis patien ts Crime Investigator Special Agent ID - [id number] 04:03:54 Test Item Value Reference Range Interpretation Comments MAGNESIUM (BEAKER) (test code = 2.4 mg/dL 1.6-2.6 627) Crime Investigator Special Agent ID - EMHIGH SENSITIVITY TROPONIN [id number] 03:58:57 Test Item Value Reference Range Interpretation Comments HIGH SENSITIVITY 165 pg/ml See_Comment H [Automated message] TROPONIN I (test code The sy stem which = [id number]) generated this result transmitted ref erence range: <=17. Th e reference range was not used to int erpret this result as normal/abnormal . Crime Investigator Special Agent ID - EMThe [employer] SUPERVISOR STAT High Sensitivity Troponin-I results should be used in conjunctionwith other diagnostic information such as ECG, clinical observations and information, and patient symptoms to aid in the diagnosis of [place].CBC W/PLT COUNT & AUTO [id number] 03:38:52 Test Item Value Reference Range Interpretation [...] PERCENT (BEAKER) (test code = 2801) POCT-GLUCOSE [id number] 00:25:14 Test Item Value Reference Range Interpretation Comments POC-GLUCOSE METER 88 mg/dL 70-110 : TESTED A T [facility] 6720 (BEAKER) (test code = [facility], 1538) [address]: Crime Investigator Special Agent/Techni smiley ID = [id number] for Jessica Rodrigues HIGH SENSITIVITY TROPONIN [id number] 22:04:24 Test Item Value Reference Range Interpretation Comments HIGH SENSITIVITY 193 pg/ml See_Comment H [Automated message] TROPONIN I (test code The sy stem which = [id number]) generated this result transmitted ref erence range: <=17. Th e reference range was not used to int erpret this result as normal/abnormal . Crime Investigator Special Agent ID - DBThe [employer] SUPERVISOR STAT High Sensitivity Troponin-I results should be used in conjunctionwith other diagnostic information such as ECG, clinical observations and information, and patient symptoms to aid in the diagnosis of [place].Urinalysis w/Microscopic + Reflex to [id number] 15:49:18 Test Item Value Reference Range Interpretation Comments Color, UA (test code Yellow = 5778-6) Clarity, UA (test Cloudy code = 5767-9) Specific [place], UA 1.021 1.001-1.035 (test code = 5811-5) pH, UA (test code = 6.0 5.0-8.0 5803-2) Protein, UA (test 70 mg/dL Negative A code = 99668-2) Glucose, UA (test Negative Negative code = 365) Ketones, UA (test Negative Negative code = 2514-8) Bilirubin, UA (test Negative Negative code = 69184-4) Blood, UA (test code Moderate Negative A = 75264-1) Nitrite, UA (test Negative Negative code = 5802-4) Leukocytes, UA (test Trace Negative A code = 5799-2) Urobilinogen, UA 0.2 0.2-1.0 (test code = 75066-6) RBC, UA (test code = 23 See_Comment [Autom ated 38301-8) message] The system which generated this result [...] 6 See_Comment [Automate d (test code = 04056-7) messag e] The system which generated this result transmit markie reference range : /HPF. The reference range was not used to interpret this result as normal/abnormal . Hyaline Casts, UA 1 See_Comment [Automate d (test code = 08434-3) messag e] The system which generated this result transmit markie reference range : /LPF. The reference range was not used to interpret this result as normal/abnormal . Specimen Source (test code = 2795) SUE (test code = SUE) Crime Investigator Special Agent ID - [auto]Crime Investigator Special Agent ID - bs Lab Interpretation Abnormal (test code = 32477-6) [facility] Reflex to Culture 2022-11-06 15:49:18 Test Item Value Reference Range Interpretation Comments Color, UA (test code Yellow = 5778-6) Clarity, UA (test Cloudy code = 5767-9) Specific [place], UA 1.021 1.001-1.035 (test code = 5811-5) pH, UA (test code = 6.0 5.0-8.0 5803-2) Protein, UA (test 70 mg/dL Negative A code = 46996-4) Glucose, UA (test Negative Negative code = 365) Ketones, UA (test Negative Negative code = 2514-8) Bilirubin, UA (test Negative Negative code = 93392-3) Blood, UA (test code Moderate Negative A = 09498-5) Nitrite, UA (test Negative Negative code = 5802-4) Leukocytes, UA (test Trace Negative A code = 5799-2) Urobilinogen, UA 0.2 0.2-1.0 (test code = 79004-3) RBC, UA (test code = 23 See_Comment [Autom ated 05880-1) message] The system which generated this result [...] 6 See_Comment [Automate d (test code = 06280-8) messag e] The system which generated this result transmit markie reference range : /HPF. The reference range was not used to interpret this result as normal/abnormal . Hyaline Casts, UA 1 See_Comment [Automate d (test code = 14991-7) messag e] The system which generated this result transmit markie reference range : /LPF. The reference range was not used to interpret this result as normal/abnormal . Specimen Source (test code = 2795) SUE (test code = SUE) Crime Investigator Special Agent ID - [auto]Crime Investigator Special Agent ID - bs Lab Interpretation Abnormal (test code = 82913-2) [facility] Reflex [facility] Culture 2022-11-06 15:49:18 Test Item Value Reference Range Interpretation Comments Color, UA (test code Yellow = 5778-6) Clarity, UA (test Cloudy code = 5767-9) Specific [place], UA 1.021 1.001-1.035 (test code = 5811-5) pH, UA (test code = 6.0 5.0-8.0 5803-2) Protein, UA (test 70 mg/dL Negative A code = 48871-5) Glucose, UA (test Negative Negative code = 365) Ketones, UA (test Negative Negative code = 2514-8) Bilirubin, UA (test Negative Negative code = 65084-7) Blood, UA (test code Moderate Negative A = 33305-4) Nitrite, UA (test Negative Negative code = 5802-4) Leukocytes, UA (test Trace Negative A code = 5799-2) Urobilinogen, UA 0.2 0.2-1.0 (test code = 39529-9) RBC, UA (test code = 23 See_Comment [Autom ated 38245-2) message] The system which generated this result [...] 6 See_Comment [Automate d (test code = 00129-1) messag e] The system which generated this result transmit markie reference range : /HPF. The reference range was not used to interpret this result as normal/abnormal . Hyaline Casts, UA 1 See_Comment [Automate d (test code = 57411-1) messag e] The system which generated this result transmit markie reference range : /LPF. The reference range was not used to interpret this result as normal/abnormal . Specimen Source (test code = 2795) SUE (test code = SUE) Crime Investigator Special Agent ID - [auto]Crime Investigator Special Agent ID - bs Lab Interpretation Abnormal (test code = 65696-0) [facility] Reflex [facility] Culture 2022-11-06 15:49:18 Test Item Value Reference Range Interpretation Comments Color, UA (test code Yellow = 5778-6) Clarity, UA (test Cloudy code = 5767-9) Specific [place], UA 1.021 1.001-1.035 (test code = 5811-5) pH, UA (test code = 6.0 5.0-8.0 5803-2) Protein, UA (test 70 mg/dL Negative A code = 08639-0) Glucose, UA (test Negative Negative code = 365) Ketones, UA (test Negative Negative code = 2514-8) Bilirubin, UA (test Negative Negative code = 71349-4) Blood, UA (test code Moderate Negative A = 71845-6) Nitrite, UA (test Negative Negative code = 5802-4) Leukocytes, UA (test Trace Negative A code = 5799-2) Urobilinogen, UA 0.2 0.2-1.0 (test code = 83786-9) RBC, UA (test code = 23 See_Comment [Autom ated 20311-8) message] The system which generated this result [...] 6 See_Comment [Automate d (test code = 59463-4) messag e] The system which generated this result transmit markie reference range : /HPF. The reference range was not used to interpret this result as normal/abnormal . Hyaline Casts, UA 1 See_Comment [Automate d (test code = 34957-3) messag e] The system which generated this result transmit markie reference range : /LPF. The reference range was not used to interpret this result as normal/abnormal . Specimen Source (test code = 2795) SUE (test code = SUE) Crime Investigator Special Agent ID - [auto]Crime Investigator Special Agent ID - bs Lab Interpretation Abnormal (test code = 69883-8) [facility] Ref[facility] Culture 2022-11-06 15:49:18 Test Item Value Reference Range Interpretation Comments Color, UA (test code Yellow = 5778-6) Clarity, UA (test Cloudy code = 5767-9) Specific [place], UA 1.021 1.001-1.035 (test code = 5811-5) pH, UA (test code = 6.0 5.0-8.0 5803-2) Protein, UA (test 70 mg/dL Negative A code = 39142-0) Glucose, UA (test Negative Negative code = 365) Ketones, UA (test Negative Negative code = 2514-8) Bilirubin, UA (test Negative Negative code = 52950-3) Blood, UA (test code Moderate Negative A = 05936-3) Nitrite, UA (test Negative Negative code = 5802-4) Leukocytes, UA (test Trace Negative A code = 5799-2) Urobilinogen, UA 0.2 0.2-1.0 (test code = 70690-7) RBC, UA (test code = 23 See_Comment [Autom ated 28656-8) message] The system which generated this result [...] 6 See_Comment [Automate d (test code = 29530-9) messag e] The system which generated this result transmit markie reference range : /HPF. The reference range was not used to interpret this result as normal/abnormal . Hyaline Casts, UA 1 See_Comment [Automate d (test code = 78402-6) messag e] The system which generated this result transmit markie reference range : /LPF. The reference range was not used to interpret this result as normal/abnormal . Specimen Source (test code = 2795) SUE (test code = SUE) Crime Investigator Special Agent ID - [auto]Crime Investigator Special Agent ID - bs Lab Interpretation Abnormal (test code = 21514-3) [facility] Reflex [facility] Culture 2022-11-06 15:49:18 Test Item Value Reference Range Interpretation Comments Color, UA (test code Yellow = 5778-6) Clarity, UA (test Cloudy code = 5767-9) Specific [place], UA 1.021 1.001-1.035 (test code = 5811-5) pH, UA (test code = 6.0 5.0-8.0 5803-2) Protein, UA (test 70 mg/dL Negative A code = 43768-3) Glucose, UA (test Negative Negative code = 365) Ketones, UA (test Negative Negative code = 2514-8) Bilirubin, UA (test Negative Negative code = 66592-3) Blood, UA (test code Moderate Negative A = 36502-8) Nitrite, UA (test Negative Negative code = 5802-4) Leukocytes, UA (test Trace Negative A code = 5799-2) Urobilinogen, UA 0.2 0.2-1.0 (test code = 77194-0) RBC, UA (test code = 23 See_Comment [Autom ated 57051-9) message] The system which generated this result [...] 6 See_Comment [Automate d (test code = 05238-1) messag e] The system which generated this result transmit markie reference range : /HPF. The reference range was not used to interpret this result as normal/abnormal . Hyaline Casts, UA 1 See_Comment [Automate d (test code = 72783-5) messag e] The system which generated this result transmit markie reference range : /LPF. The reference range was not used to interpret this result as normal/abnormal . Specimen Source (test code = 2795) SUE (test code = SUE) Crime Investigator Special Agent ID - [auto]Crime Investigator Special Agent ID - bs Lab Interpretation Abnormal (test code = 42522-6) [facility] Reflex to Culture 2022-11-06 15:49:18 Test Item Value Reference Range Interpretation Comments Color, UA (test code Yellow = 5778-6) Clarity, UA (test Cloudy code = 5767-9) Specific [place], UA 1.021 1.001-1.035 (test code = 5811-5) pH, UA (test code = 6.0 5.0-8.0 5803-2) Protein, UA (test 70 mg/dL Negative A code = 30312-5) Glucose, UA (test Negative Negative code = 365) Ketones, UA (test Negative Negative code = 2514-8) Bilirubin, UA (test Negative Negative code = 13215-1) Blood, UA (test code Moderate Negative A = 40298-4) Nitrite, UA (test Negative Negative code = 5802-4) Leukocytes, UA (test Trace Negative A code = 5799-2) Urobilinogen, UA 0.2 0.2-1.0 (test code = 46462-9) RBC, UA (test code = 23 See_Comment [Autom ated 00064-6) message] The system which generated this result [...] 6 See_Comment [Automate d (test code = 08167-2) messag e] The system which generated this result transmit markie reference range : /HPF. The reference range was not used to interpret this result as normal/abnormal . Hyaline Casts, UA 1 See_Comment [Automate d (test code = 31633-4) messag e] The system which generated this result transmit markie reference range : /LPF. The reference range was not used to interpret this result as normal/abnormal . Specimen Source (test code = 2795) SUE (test code = SUE) Crime Investigator Special Agent ID - [auto]Crime Investigator Special Agent ID - bs Lab Interpretation Abnormal (test code = 32589-7) [facility] Reflex to Culture 2022-11-06 15:49:18 Test Item Value Reference Range Interpretation Comments Color, UA (test code Yellow = 5778-6) Clarity, UA (test Cloudy code = 5767-9) Specific [place], UA 1.021 1.001-1.035 (test code = 5811-5) pH, UA (test code = 6.0 5.0-8.0 5803-2) Protein, UA (test 70 mg/dL Negative A code = 51048-0) Glucose, UA (test Negative Negative code = 365) Ketones, UA (test Negative Negative code = 2514-8) Bilirubin, UA (test Negative Negative code = 92820-3) Blood, UA (test code Moderate Negative A = 41262-3) Nitrite, UA (test Negative Negative code = 5802-4) Leukocytes, UA (test Trace Negative A code = 5799-2) Urobilinogen, UA 0.2 0.2-1.0 (test code = 47905-2) RBC, UA (test code = 23 See_Comment [Autom ated 08146-1) message] The system which generated this result [...] 6 See_Comment [Automate d (test code = 85034-8) messag e] The system which generated this result transmit markie reference range : /HPF. The reference range was not used to interpret this result as normal/abnormal . Hyaline Casts, UA 1 See_Comment [Automate d (test code = 35387-5) messag e] The system which generated this result transmit markie reference range : /LPF. The reference range was not used to interpret this result as normal/abnormal . Specimen Source (test code = 2795) SUE (test code = SUE) Crime Investigator Special Agent ID - [auto]Crime Investigator Special Agent ID - bs Lab Interpretation Abnormal (test code = 84665-3) [facility] [id number] 15:49:18 Test Item Value Reference Range Interpretation [...] /LPF 514) SOURCE(BEAKER) (test code = 2795) Crime Investigator Special Agent ID - [auto]Crime Investigator Special Agent ID - bsPT/XHEM7828-99-28 15:35:00 Test Item Value Reference Range Interpretation [...] patients with mechanical heart valves.HIGH SENSITIVITY TROPONIN [id number] 15:30:15 Test Item Value Reference Range Interpretation Comments HIGH SENSITIVITY 264 pg/ml See_Comment H [Automated message] TROPONIN I (test code The sy stem which = 4936501) generated this result transmitted ref erence range: <=17. Th e reference range was not used to int erpret this result as normal/abnormal . Crime Investigator Special Agent ID - ADMINThe [employer] SUPERVISOR STAT High Sensitivity Troponin-I results should be used in conjunction with other diagnostic information such as ECG, clinical observations and information, and patientsymptoms to aid in the diagnosis of [place]. Blood gas, [id number] 15:09:57 Test Item Value Reference Range Interpretation Comments pH, Arterial (test code 7.40 7.35-7.45 = 2744-1) pCO2, Arterial (test 44 See_Comment [Autom ated message] code = 2019-8) The system [employer] generated this result transmit markie reference range : 35 - 45 mm Hg. The reference range was not used to interpret this result as normal/abnormal . pO2, Arterial (test 195 See_Comment H [Automa markie message] code = 2703-7) The system [employer] generated this result transmit markie reference range [...] 36.0 Lab Interpretation Abnormal (test code = 12911-3) [facility], [id number] 15:09:57 Test Item Value Reference Range Interpretation Comments pH, Arterial (test code 7.40 7.35-7.45 = 2744-1) pCO2, Arterial (test 44 See_Comment [Autom ated message] code = 2019-8) The system [employer] generated this result transmit markie reference range : 35 - 45 mm Hg. The reference range was not used to interpret this result as normal/abnormal . pO2, Arterial (test 195 See_Comment H [Automa markie message] code = 2703-7) The system [employer] generated this result transmit markie reference range [...] 36.0 Lab Interpretation Abnormal (test code = 25921-7) [facility], [id number] 15:09:57 Test Item Value Reference Range Interpretation Comments pH, Arterial (test code 7.40 7.35-7.45 = 2744-1) pCO2, Arterial (test 44 See_Comment [Autom ated message] code = 2019-) The system [facility] generated this result transmit markie reference range : 35 - 45 mm Hg. The reference range was not used to interpret this result as normal/abnormal . pO2, Arterial (test 195 See_Comment H [Automa markie message] code = 2703-7) The system [employer] generated this result transmit markie reference range [...] 36.0 Lab Interpretation Abnormal (test code = 67752-5) [facility] gas, [id number] 15:09:57 Test Item Value Reference Range Interpretation Comments pH, Arterial (test code 7.40 7.35-7.45 = 2744-1) pCO2, Arterial (test 44 See_Comment [Autom ated message] code = 2018-) The system [employer] generated this result transmit markie reference range : 35 - 45 mm Hg. The reference range was not used to interpret this result as normal/abnormal . pO2, Arterial (test 195 See_Comment H [Automa markie message] code = 2703-7) The system [employer] generated this result transmit markie reference range [...] 36.0 Lab Interpretation Abnormal (test code = 78195-6) [facility], [id number] 15:09:57 Test Item Value Reference Range Interpretation Comments pH, Arterial (test code 7.40 7.35-7.45 = 2744-1) pCO2, Arterial (test 44 See_Comment [Autom ated message] code = 2019-) The system [employer] generated this result transmit markie reference range : 35 - 45 mm Hg. The reference range was not used to interpret this result as normal/abnormal . pO2, Arterial (test 195 See_Comment H [Automa markie message] code = 2703-7) The system [employer] generated this result transmit markie reference range [...] 36.0 Lab Interpretation Abnormal (test code = 10012-7) [facility] gas, [id number] 15:09:57 Test Item Value Reference Range Interpretation Comments pH, Arterial (test code 7.40 7.35-7.45 = 2744-1) pCO2, Arterial (test 44 See_Comment [Autom ated message] code = 2019-) The system [employer] generated this result transmit markie reference range : 35 - 45 mm Hg. The reference range was not used to interpret this result as normal/abnormal . pO2, Arterial (test 195 See_Comment H [Automa markie message] code = 2703-7) The system [employer] generated this result transmit markie reference range [...] 36.0 Lab Interpretation Abnormal (test code = 91064-4) [facility], [id number] 15:09:57 Test Item Value Reference Range Interpretation Comments pH, Arterial (test code 7.40 7.35-7.45 = 2744-1) pCO2, Arterial (test 44 See_Comment [Autom ated message] code = 2018-) The system [employer] generated this result transmit markie reference range : 35 - 45 mm Hg. The reference range was not used to interpret this result as normal/abnormal . pO2, Arterial (test 195 See_Comment H [Automa markie message] code = 2703-7) The system [employer] generated this result transmit markie reference range [...] 36.0 Lab Interpretation Abnormal (test code = 60949-5) [facility], [id number] 15:09:57 Test Item Value Reference Range Interpretation Comments pH, Arterial (test code 7.40 7.35-7.45 = 2744-1) pCO2, Arterial (test 44 See_Comment [Autom ated message] code = 2019-) The system [employer] generated this result transmit markie reference range : 35 - 45 mm Hg. The reference range was not used to interpret this result as normal/abnormal . pO2, Arterial (test 195 See_Comment H [Automa markie message] code = 2703-7) The system [facility] generated this result transmit [...] 36.0 Lab Interpretation Abnormal (test code = 87488-4) [facility], [id number] 15:09:57 Test Item Value Reference Range Interpretation [...] (test code = 1819) 36.0 ECG 12 [id number] 13:44:42Ventricular Rate 62 BPMAtrial Rate 62 BPMP-R Interval 180 msQRS Duration 90 msQ-T Interval 454 msQTCCalculation(Bazett) 460 msP Willard 19 degreesR Willard 64 degreesT Willard 254 degrees Normal sinus rhythmPos sible Left atrial enlargementLeft ventricular hypertrophy with repolarization abnormalityAbnormal ECGWhen compared with ECG of 01-AUG-2022 10:14,ST now depressed in Inferior leadsT wave inversion more evident in Inferior leads Confirmed by MD MELVIN, DANII ([id number]) on 11/06/2022 1:44:41 [facility] [id number] 13:44:42Ventricular Rate 62 BPMAtrial Rate 62 BPMP-R Interval 180 msQRS Duration 90 msQ-T Interval 454 msQTC Calculation(Bazett) 460 msP Willard 19 degreesR Willard 64 degreesT Willard 254 degrees Normal sinus rhythmPossible Left atrial enlargementLeft ventricular hypertrophy with repolarization abnormalityAbnormal ECGWhen compared with ECG of 01-AUG-2022 10:14,ST now depressed in Inferior leadsT wave inversion more evident in Inferior leads Confirmed by MD CHARLES YOCHAI ([id number]) on 11/06/2022 1:44:41 PM [place] [address] [id number] 13:44:42Ventricular Rate 62 BPMAtrial Rate 62 BPMP-R Interval 180 msQRS Duration 90 msQ-T Interval 454 msQTC Calculation(Bazett) 460 msP Willard 19 degreesR Willard 64 degreesT Willard 254 degrees Normal sinus rhythmPossible Left atrial enlargementLeft ventricular hypertrophy with repolarization abnormalityAbnormal ECGWhen compared with ECG of 01-AUG-2022 10:14,ST now depressed in Inferior leadsT wave inversion more evident in Inferior leads Confirmed by MD CHARLES YOCHAI ([id number]) on 11/06/2022 1:44:41 PM [place] [address] [id number] 13:44:42Ventricular Rate 62 BPMAtrial Rate 62 BPMP-R Interval 180 msQRS Duration 90 msQ-T Interval 454 msQTC Calculation(Bazett) 460 msP Willard 19 degreesR Willard 64 degreesT Willard 254 degrees Normal sinus rhythmPossible Left atrial enlargementLeft ventricular hypertrophy with repolarization abnormalityAbnormal ECGWhen compared with ECG of 01-AUG-2022 10:14,ST now depressed in Inferior leadsT wave inversion more evident in Inferior leads Confirmed by MD CHARLES YOCHAI (190) on 11/06/2022 1:44:41 PM [place] [address] [id number] 13:44:42Ventricular Rate 62 BPMAtrial Rate 62 BPMP-R Interval 180 msQRS Duration 90 msQ-T Interval 454 msQTC Calculation(Bazett) 460 msP Willard 19 degreesR Willard 64 degreesT Willard 254 degrees Normal sinus rhythmPossible Left atrial enlargementLeft ventricular hypertrophy with repolarization abnormalityAbnormal ECGWhen compared with ECG of 01-AUG-2022 10:14,ST now depressed in Inferior leadsT wave inversion more evident in Inferior leads Confirmed by MD CHARLES YOCHAI ([id number]) on 11/06/2022 1:44:41 PM [facility] 12 [id number] 13:44:42Ventricular Rate 62 BPMAtrial Rate 62 BPMP-R Interval 180 msQRS Duration 90 msQ-T Interval 454 msQTC Calculation(Bazett) 460 msP Willard 19 degreesR Willard 64 degreesT Willard 254 degrees Normal sinus rhythmPossible Left atrial enlargementLeft ventricular hypertrophy with repolarization abnormalityAbnormal ECGWhen compared with ECG of 01-AUG-2022 10:14,ST now depressed in Inferior leadsT wave inversion more evident in Inferior leads Confirmed by MD CHARLES YOCHAI ([id number]) on 11/06/2022 1:44:41 PM [place] [address] [id number] 13:44:42Ventricular Rate 62 BPMAtrial Rate 62 BPMP-R Interval 180 msQRS Duration 90 msQ-T Interval 454 msQTC Calculation(Bazett) 460 msP Willard 19 degreesR Willard 64 degreesT Willard 254 degrees Normal sinus rhythmPossible Left atrial enlargementLeft ventricular hypertrophy with repolarization abnormalityAbnormal ECGWhen compared with ECG of 01-AUG-2022 10:14,ST now depressed in Inferior leadsT wave inversion more evident in Inferior leads Confirmed by MD CHARLES YOCHAI (1903) on 11/06/2022 1:44:41 PM [place] [address] [id number] 13:44:42Ventricular Rate 62 BPMAtrial Rate 62 BPMP-R Interval 180 msQRS Duration 90 msQ-T Interval 454 msQTC Calculation(Bazett) 460 msP Willard 19 degreesR Willard 64 degreesT Willard 254 degrees Normal sinus rhythmPossible Left atrial enlargementLeft ventricular hypertrophy with repolarization abnormalityAbnormal ECGWhen compared with ECG of 01-AUG-2022 10:14,ST now depressed in Inferior leadsT wave inversion more evident in Inferior leads Confirmed by MD CHARLES YOCHAI ([id number]) on 11/06/2022 1:44:41 PM [facility] / [id number] 13:38:36 Chest, 1 view, 11/06/2022 11:58 AM. History: r/o aspiration pneumonia. Comparison: 10/30/2022. Discussion: The cardiac silhouette is prominent but stable. Lungs areclear. There is no pneumothorax. Feeding tube terminates below thehemidiaphragm. Right IJ central line is no longer present. There are noacute osseous findings.[facility] PORT[facility] / BEDSIDE 2022-11-06 13:38:36 [facility] : 1975 Sex: FChest, 1 view, 11/06/2022 11:58 AM.History: r/o aspiration pneumonia.Comparison: 10/30/2022.Discussion: Thecardiac silhouette is prominent but stable. Lungs areclear. There is no pneumothorax. Feeding tube terminates below thehemidiaphragm. Right IJ central line is no longer present. There are noacute osseous findings.IMPRESSION:No acute pulmonary findings.Electronically Signed By: Sage Caruso11/06/2022 13:40 CDTWorkstation Name: [id number] 2022-11-06 11:32:33 Test Item Value Reference Range Interpretation Comments PROCALCITONIN (NERISAKER) (test code 0.31 ng/mL <0.05 H = 3036) SEPSIS RISK (ng/mL)Low: 0.05-0.50Intermediate: 0.51-2.00High: >=2.01HIGH SENSITIVITY TROPONIN [id number] 11:27:53 Test Item Value Reference Range Interpretation Comments HIGH SENSITIVITY 344 pg/ml See_Comment H [Automated message] TROPONIN I (test code The sy stem which = 1602386) generated this result transmitted ref erence range: <=17. Th e reference range was not used to int erpret this result as normal/abnormal . Crime Investigator Special Agent ID Gisele STEEL WThe [employer] SUPER[employer]OR STAT High Sensitivity Troponin-I results should be used in conjunction with other diagnostic information such as ECG, clinical observations and information, and patient symptoms to aid in the diagnosis of [place].LACTIC ACID, [id number] 11:07:17 Test Item Value Reference Range Interpretation Comments LACTATE BLOOD VENOUS (2) (BEAKER) 0.80 mmol/L 0.50-2.00 (test code = 2872) Crime Investigator Special Agent ID Gisele STEEL WCT BRAIN WITHOUT IV [id number] 10:59:53 [facility] Annabel : 1975 Sex: F ADDENDUM #1 Addendum: [...] Signed By: Alexandra Liang11/06/2022 11:01 CDTWorkstation Name: [id number] 10:57:58 Test Item Value Reference Range Interpretation Comments POC-Glucose (test code = 117 mg/dL 70-110 H : T ESTED AT [facility] 1855) [address] [facility], [address] 30: Crime Investigator Special Agent/Techni smiley ID = [id number] for RACELIS, SHELBY INE Lab Interpretation (test Abnormal code = 11899-5) [facility] Heart[facility]-[id number] 10:57:58 Test Item Value Reference Range Interpretation Comments POC-Hematocrit (test code 34 % 36-45 L : = 1857) Crime Investigator Special Agent/Techni smiley ID = [id number] for RACELIS, SHELBY INE Lab Interpretation (test Abnormal code = 18937-3) [place] [facility] [id number] 10:57:58 Test Item Value Reference Range Interpretation Comments POC-Glucose (test code = 117 mg/dL 70-110 H : T ESTED AT [facility] 1855) [address] [facility], 770 30: Crime Investigator Special Agent/Techni smiley ID = [id number] for RACELIS, SHELBY INE Lab Interpretation (test Abnormal code = 63123-5) [facility]-[id number] 10:57:58 Test Item Value Reference Range Interpretation Comments POC-Hematocrit (test code 34 % 36-45 L : = 1857) Crime Investigator Special Agent/Techni smiley ID = [id number] for RACELIS, SHELBY INE Lab Interpretation (test Abnormal code = 20445-4) [place] [facility] [id number] 10:57:58 Test Item Value Reference Range Interpretation Comments POC-Glucose (test code = 117 mg/dL 70-110 H : T ESTED AT [facility] 1855) [address] [place] [address], 770 30: Crime Investigator Special Agent/Techni smiley ID = [id number] for RACELIS, SHELBY INE Lab Interpretation (test Abnormal code = 66749-7) [facility] Center[facility]rnsxoMARC-[id number] 10:57:58 Test Item Value Reference Range Interpretation Comments POC-Hematocrit (test code 34 % 36-45 L : = 1857) Crime Investigator Special Agent/Techni smiley ID = [id number] for RACELIS, SHELBY INE Lab Interpretation (test Abnormal code = 58408-5) [place] [facility] [id number] 10:57:58 Test Item Value Reference Range Interpretation Comments POC-Glucose (test code = 117 mg/dL 70-110 H : T ESTED AT [facility] 1855) [address] [place] [address], 770 30: Crime Investigator Special Agent/Techni smiley ID = [id number] for RACELIS, SHELBY INE Lab Interpretation (test Abnormal code = 81741-8) [facility] HeartCT-[id number] 10:57:58 Test Item Value Reference Range Interpretation Comments POC-Hematocrit (test code 34 % 36-45 L : = 1857) Crime Investigator Special Agent/Techni smiley ID = [id number] for RACELIS, SHELBY INE Lab Interpretation (test Abnormal code = 78817-0) [place] [facility] [id number] 10:57:58 Test Item Value Reference Range Interpretation Comments POC-Glucose (test code = 117 mg/dL 70-110 H : T ESTED AT [facility] 1855) [address] [place] [address], [address]70 30: Crime Investigator Special Agent/Techni smiley ID = [id number] for RACELIS, SHELBY INE Lab Interpretation (test Abnormal code = 77381-5) [facility]-[id number] 10:57:58 Test Item Value Reference Range Interpretation Comments POC-Hematocrit (test code 34 % 36-45 L : = 1857) Crime Investigator Special Agent/Techni smiley ID = [id number] for RACELIS, SHELBY INE Lab Interpretation (test Abnormal code = 21272-6) [place] [facility] [id number] 10:57:58 Test Item Value Reference Range Interpretation Comments POC-Glucose (test code = 117 mg/dL 70-110 H : T ESTED AT [facility] 1855) [address] [place] [address], [address]70 30: Crime Investigator Special Agent/Techni smiley ID = [id number] for RACELIS, SHELBY INE Lab Interpretation (test Abnormal code = 09136-9) [facility]-[id number] 10:57:58 Test Item Value Reference Range Interpretation Comments POC-Hematocrit (test code 34 % 36-45 L : = 1857) Crime Investigator Special Agent/Techni smiley ID = [id number] for RACELIS, SHELBY INE Lab Interpretation (test Abnormal code = 64399-8) [place] [facility] [id number] 10:57:58 Test Item Value Reference Range Interpretation Comments POC-Glucose (test code = 117 mg/dL 70-110 H : T ESTED AT [facility] 1855) [address] [place] [address], [address]70 30: Crime Investigator Special Agent/Techni smiley ID = [id number] for RACELIS, SHELBY INE Lab Interpretation (test Abnormal code = 99009-3) [facility]-[id number] 10:57:58 Test Item Value Reference Range Interpretation Comments POC-Hematocrit (test code 34 % 36-45 L : = 1857) Crime Investigator Special Agent/Techni smiley ID = [id number] for RACELIS, SHELBY INE Lab Interpretation (test Abnormal code = 19255-2) [place] [facility] [id number] 10:57:58 Test Item Value Reference Range Interpretation Comments POC-Glucose (test code = 117 mg/dL 70-110 H : T ESTED AT [facility] 1855) [address] [place] [address], [address]70 30: Crime Investigator Special Agent/Techni smiley ID = [id number] for RACELIS, SHELBY INE Lab Interpretation (test Abnormal code = 77266-9) [facility]-[id number] 10:57:58 Test Item Value Reference Range Interpretation Comments POC-Hematocrit (test code 34 % 36-45 L : = 1857) Crime Investigator Special Agent/Techni smiley ID = [id number] for RACELIS, SHELBY INE Lab Interpretation (test Abnormal code = 28824-7) [facility] CenterRavmleKIMH-[id number] 10:57:58 Test Item Value Reference Range Interpretation Comments POC-HEMATOCRIT 34 % 36-45 L : Crime Investigator Special Agent/Te chnician ID = (BEAKER) (test code = 219238 for RACELIS, 1857) SAMY TQNW-[id number] 10:57:58 Test Item Value Reference Range Interpretation Comments POC-GLUCOSE (BEAKER) 117 mg/dL 70-110 H : TESTE D AT [facility] 6720 (test code = 1855) [facility], [address]: Crime Investigator Special Agent/Techni smiley ID = [id number] for RACE LIS, SAMY FMW-[id number] 10:57:57 Test Item Value Reference Range Interpretation Comments POC-Potassium (test code 5.5 meq/L 3.6-5.5 : T ESTED AT [facility] = 1540) [address] [facility], [address]70 30: Crime Investigator Special Agent/Techni smiley ID = [id number] for RACELIS, SHELBY INE Lab Interpretation (test Normal code = 14321-0) [facility]-[id number] 10:57:57 Test Item Value Reference Range Interpretation Comments POC-Hemoglobin (test code 11.6 g/dL 12.0-15.0 L : TESTED AT [facility] = 1856) [address] [facility], [address]70 30: Crime Investigator Special Agent/Techni smiley ID = [id number] for RACELIS, SHELBY INE Lab Interpretation (test Abnormal code = 35204-2) [facility]-[id number] 10:57:57 Test Item Value Reference Range Interpretation Comments POC-Potassium (test code 5.5 meq/L 3.6-5.5 : T ESTED AT [facility] = 1540) [address] [facility], [address] 30: Crime Investigator Special Agent/Techni smiley ID = [id number] for RACELIS, SHELBY INE Lab Interpretation (test Normal code = 11293-9) [facility]-[id number] 10:57:57 Test Item Value Reference Range Interpretation Comments POC-Hemoglobin (test code 11.6 g/dL 12.0-15.0 L : [place] [facility] [place] [address] [place] [address], [address]70 30: Crime Investigator Special Agent/Techni smiley ID = [id number] for RACELIS, SHELBY INE Lab Interpretation (test Abnormal code = 42233-2) [place] [facility]-Wxmjutpwd4778-60-87 10:57:57 Test Item Value Reference Range Interpretation Comments POC-Potassium (test code 5.5 meq/L 3.6-5.5 : T ESTED AT [facility] = 1540) [address] [place] [address], [address]70 30: Crime Investigator Special Agent/Techni smiley ID = [id number] for RACELIS, SHELBY INE Lab Interpretation (test Normal code = 82306-7) [facility]-[id number] 10:57:57 Test Item Value Reference Range Interpretation Comments POC-Hemoglobin (test code 11.6 g/dL 12.0-15.0 L : [place] [facility] [place] [address] [place] [address], [facility] 30: Crime Investigator Special Agent/Techni smiley ID = [id number] for RACELIS, SHELBY INE Lab Interpretation (test Abnormal code = 19485-7) [place] [facility]-Xefzxtjwa1695-53-15 10:57:57 Test Item Value Reference Range Interpretation Comments POC-Potassium (test code 5.5 meq/L 3.6-5.5 : T ESTED AT [facility] = 1540) [address] [place] [address], [facility] 30: Crime Investigator Special Agent/Techni smiley ID = [id number] for RACELIS, SHELBY INE Lab Interpretation (test Normal code = 22080-7) [facility]-[id number] 10:57:57 Test Item Value Reference Range Interpretation Comments POC-Hemoglobin (test code 11.6 g/dL 12.0-15.0 L : [place] [facility] [address] [place] [address], [address]70 30: Crime Investigator Special Agent/Techni smiley ID = [id number] for RACELIS, SHELBY INE Lab Interpretation (test Abnormal code = 33229-4) [place] [facility]-[id number] 10:57:57 Test Item Value Reference Range Interpretation Comments POC-Potassium (test code 5.5 meq/L 3.6-5.5 : T [place] [facility] [address] [place] [address], [facility] 30: Crime Investigator Special Agent/Techni smiley ID = [id number] for RACELIS, SHELBY INE Lab Interpretation (test Normal code = 77329-8) [facility]-[id number] 10:57:57 Test Item Value Reference Range Interpretation Comments POC-Hemoglobin (test code 11.6 g/dL 12.0-15.0 L : [place] [facility] [place] [address] [place] [address], [facility] 30: Crime Investigator Special Agent/Techni smiley ID = [id number] for RACELIS, SHELBY INE Lab Interpretation (test Abnormal code = 00629-0) [place] [facility]-Avvuyspus0310-43-71 10:57:57 Test Item Value Reference Range Interpretation Comments POC-Potassium (test code 5.5 meq/L 3.6-5.5 : T ESTED AT [facility] = 1540) [address] [place] [address], [facility] 30: Crime Investigator Special Agent/Techni smiley ID = [id number] for RACELIS, SHELBY INE Lab Interpretation (test Normal code = 74353-2) [facility]-[id number] 10:57:57 Test Item Value Reference Range Interpretation Comments POC-Hemoglobin (test code 11.6 g/dL 12.0-15.0 L : [place] [facility] [place] [address] [place] [address], [facility] 30: Crime Investigator Special Agent/Techni smiley ID = [id number] for RACELIS, SHELBY INE Lab Interpretation (test Abnormal code = 48715-3) [place] [facility]-Ruccecphf3040-37-92 10:57:57 Test Item Value Reference Range Interpretation Comments POC-Potassium (test code 5.5 meq/L 3.6-5.5 : T ESTED AT [facility] = 1540) [address] [place] [address], [facility] 30: Crime Investigator Special Agent/Techni smiley ID = [id number] for RACELIS, SHELBY INE Lab Interpretation (test Normal code = 93572-4) [facility]-[id number] 10:57:57 Test Item Value Reference Range Interpretation Comments POC-Hemoglobin (test code 11.6 g/dL 12.0-15.0 L : TESTED AT [facility] = 1856) [address] [facility], 770 30: Crime Investigator Special Agent/Techni smiley ID = [id number] for RACELIS, SHELBY INE Lab Interpretation (test Abnormal code = 25075-5) [place] [facility]-Tjvpdpvmt2712-02-70 10:57:57 Test Item Value Reference Range Interpretation Comments POC-Potassium (test code 5.5 meq/L 3.6-5.5 : T ESTED AT [facility] = 1540) [address] [place] [address], [address]70 30: Crime Investigator Special Agent/Techni smiley ID = [id number] for RACELIS, SHELBY INE Lab Interpretation (test Normal code = 31522-7) [facility]-[id number] 10:57:57 Test Item Value Reference Range Interpretation Comments POC-Hemoglobin (test code 11.6 g/dL 12.0-15.0 L : TESTED AT [facility] = 1856) [address] [place] [address], 770 30: Crime Investigator Special Agent/Techni smiley ID = [id number] for RACELIS, SHELBY INE Lab Interpretation (test Abnormal code = 98399-4) [facility]-[id number] 10:57:57 Test Item Value Reference Range Interpretation Comments POC-POTASSIUM 5.5 meq/L 3.6-5.5 : TESTED AT [facility] 6720 (BEAKER) (test code [facility], = 1540) [address]: Crime Investigator Special Agent/Techni smiley ID = [id number] for RACE LIS, SAMY CPBF-[id number] 10:57:57 Test Item Value Reference Range Interpretation Comments POC-HEMOGLOBIN 11.6 g/dL 12.0-15.0 L : TESTED AT [facility] 6720 (BEAKER) (test code [facility], = 1856) [address]: Crime Investigator Special Agent/Techni smiley ID = [id number] for RACE LIS, SAMY WUC-[id number] 10:57:52 Test Item Value Reference Range Interpretation Comments POC-Sodium (test code = 142 meq/L 135-148 : TE STED AT [facility] 1542) [address] [place] [address], [address] 30: Crime Investigator Special Agent/Techni smiley ID = [id number] for RACELIS, SHELBY INE Lab Interpretation (test Normal code = 10380-5) [place] [facility]-Rcgpdw0740-53-29 10:57:52 Test Item Value Reference Range Interpretation Comments POC-Sodium (test code = 142 meq/L 135-148 : TE STED AT [facility] 1542) [address] [place] [address], [facility] 30: Crime Investigator Special Agent/Techni smiley ID = [id number] for RACELIS, SHELBY INE Lab Interpretation (test Normal code = 00021-9) [place] [facility]-Xytbzq6734-98-80 10:57:52 Test Item Value Reference Range Interpretation Comments POC-Sodium (test code = 142 meq/L 135-148 : TE STED AT [facility] 1542) [address] [place] [address], [facility] 30: Crime Investigator Special Agent/Techni smiley ID = [id number] for RACELIS, SHELBY INE Lab Interpretation (test Normal code = 68498-8) [place] [facility]-Giqsyo4893-23-73 10:57:52 Test Item Value Reference Range Interpretation Comments POC-Sodium (test code = 142 meq/L 135-148 : TE STED AT [facility] 1542) [address] [place] [address], [facility] 30: Crime Investigator Special Agent/Techni smiley ID = [id number] for RACELIS, SHELBY INE Lab Interpretation (test Normal code = 68661-9) [facility] 10:57:52 Test Item Value Reference Range Interpretation Comments POC-Sodium (test code = 142 meq/L 135-148 : TE STED AT [facility] 1542) [address] [place] [address], [facility] 30: Crime Investigator Special Agent/Techni smiley ID = [id number] for RACELIS, SHELBY INE Lab Interpretation (test Normal code = 84047-7) [facility]ud[facility]22[facility]50-11 10:57:52 Test Item Value Reference Range Interpretation Comments POC-Sodium (test code = 142 meq/L 135-148 : TE STED AT [facility] 1542) [address] [place] [address], [facility] 30: Crime Investigator Special Agent/Techni smiley ID = [id number] for RACELIS, SHELBY INE Lab Interpretation (test Normal code = 37835-3) [facility]ac[facility]23-10-66 10:57:52 Test Item Value Reference Range Interpretation Comments POC-Sodium (test code = 142 meq/L 135-148 : TE STED AT [facility] 1542) [address] [facility], [address] 30: Crime Investigator Special Agent/Techni smiley ID = [id number] for RACELIS, SHELBY INE Lab Interpretation (test Normal code = 12502-3) [place] [facility]-Arxlxa2395-46-83 10:57:52 Test Item Value Reference Range Interpretation Comments POC-Sodium (test code = 142 meq/L 135-148 : TE STED AT [facility] 1542) [address] [facility], [address] 30: Crime Investigator Special Agent/Techni smiley ID = [id number] for RACELIS, SHELBY INE Lab Interpretation (test Normal code = 70386-4) [facility]-[id number] 10:57:52 Test Item Value Reference Range Interpretation Comments POC-SODIUM (BEAKER) 142 meq/L 135-148 : TESTED AT [facility] 6720 (test code = 1542) [facility], [address]: Crime Investigator Special Agent/Techni smiley ID = [id number] for RACE LISSHELBYSAMY POC-Blood gases, aceyupxj6017-73-20 10:57:51 Test Item Value Reference Range Interpretation [...] tomated message] code = 1838) The system [facility] h generated this result transmit markie reference range : 80.0 - 90.0 mm Hg. The reference r elizabeth was not used to interpret this result as normal/abnormal . SO2, Arterial-POC (test 35.0 % 96.0-97.0 L code = 1839) HCO3, Arterilal-POC 32.6 meq/L 21.0-29.0 H (test code = 1840) BE, Arterial-POC (test 7.0 meq/L -2.0-3.0 H : LAISHA MARKIE AT [facility] code = 1841) [address] [facility], [address]: Crime Investigator Special Agent/Techni smiley ID = [id number] for RACELIS SHELBY INE Lab Interpretation Abnormal (test code = 41651-4) [facility]-Blood gases, nlsyljbi6199-84-55 10:57:51 Test Item Value Reference Range Interpretation [...] tomated message] code = 1838) The system [employer] generated this result transmit markie reference range : 80.0 - 90.0 mm Hg. The reference r elizabeth was not used to interpret this result as normal/abnormal . SO2, Arterial-POC (test 35.0 % 96.0-97.0 L code = 1839) HCO3, Arterilal-POC 32.6 meq/L 21.0-29.0 H (test code = 1840) BE, Arterial-POC (test 7.0 meq/L -2.0-3.0 H : LAISHA MARKIE AT [facility] code = 1841) [address] [place], [address]: Crime Investigator Special Agent/Techni smiley ID = [id number] for RACELIS, SHELBY INE Lab Interpretation Abnormal (test code = 62999-5) [place] [facility], [id number] 10:57:51 Test Item Value Reference Range Interpretation [...] tomated message] code = 1838) The system Rysto generated this result transmit markie reference range : 80.0 - 90.0 mm Hg. The reference r elizabeth was not used to interpret this result as normal/abnormal . SO2, Arterial-POC (test 35.0 % 96.0-97.0 L code = 1839) HCO3, Arterilal-POC 32.6 meq/L 21.0-29.0 H (test code = 1840) BE, Arterial-POC (test 7.0 meq/L -2.0-3.0 H : LAISHA MARKIE AT [facility] code = 1841) [address] [facility], [address]: Crime Investigator Special Agent/Techni smiley ID = [id number] for CARLOS SHELBY CATHERINE Lab Interpretation Abnormal (test code = 57907-3) [place] [facility], [id number] 10:57:51 Test Item Value Reference Range Interpretation [...] tomated message] code = 1838) The system Rysto generated this result transmit markie reference range : 80.0 - 90.0 mm Hg. The reference r elizabeth was not used to interpret this result as normal/abnormal . SO2, Arterial-POC (test 35.0 % 96.0-97.0 L code = 1839) HCO3, Arterilal-POC 32.6 meq/L 21.0-29.0 H (test code = 1840) BE, Arterial-POC (test 7.0 meq/L -2.0-3.0 H : LAISHA MARKIE AT [facility] code = 1841) [address] [facility], [address]: Crime Investigator Special Agent/Techni smiley ID = [id number] for RACELIS, SHELBY INE Lab Interpretation Abnormal (test code = 05701-0) [place] [facility], [id number] 10:57:51 Test Item Value Reference Range Interpretation [...] tomated message] code = 1838) The system [employer] h generated this result transmit markie reference range : 80.0 - 90.0 mm Hg. The reference r elizabeth was not used to interpret this result as normal/abnormal . SO2, Arterial-POC (test 35.0 % 96.0-97.0 L code = 1839) HCO3, Arterilal-POC 32.6 meq/L 21.0-29.0 H (test code = 1840) BE, Arterial-POC (test 7.0 meq/L -2.0-3.0 H : LAISHA MARKIE AT [facility] code = 1841) [address] [place], [address]: Crime Investigator Special Agent/Techni smiley ID = [id number] for RACELIS, SHELBY INE Lab Interpretation Abnormal (test code = 39144-5) [place] [facility], [id number] 10:57:51 Test Item Value Reference Range Interpretation [...] tomated message] code = 1838) The system [employer] h generated this result transmit markie reference range : 80.0 - 90.0 mm Hg. The reference r elizabeth was not used to interpret this result as normal/abnormal . SO2, Arterial-POC (test 35.0 % 96.0-97.0 L code = 1839) HCO3, Arterilal-POC 32.6 meq/L 21.0-29.0 H (test code = 1840) BE, Arterial-POC (test 7.0 meq/L -2.0-3.0 H : LAISHA MARKIE AT [facility] code = 1841) [address] [facility] [place] [place], [address]: Crime Investigator Special Agent/Techni smiley ID = [id number] for SHELBY GONZALEZ DORENE Lab Interpretation Abnormal (test code = 63299-8) [place] [facility], [id number] 10:57:51 Test Item Value Reference Range Interpretation [...] tomated message] code = 1838) The system Rysto generated this result transmit markie reference range : 80.0 - 90.0 mm Hg. The reference r elizabeth was not used to interpret this result as normal/abnormal . SO2, Arterial-POC (test 35.0 % 96.0-97.0 L code = 1839) HCO3, Arterilal-POC 32.6 meq/L 21.0-29.0 H (test code = 1840) BE, Arterial-POC (test 7.0 meq/L -2.0-3.0 H : LAISHA MARKIE AT [facility] code = 1841) [address] [facility], [address]: Crime Investigator Special Agent/Techni smiley ID = [id number] for SHELBY GONZALEZ DORENE Lab Interpretation Abnormal (test code = 01953-3) [place] [facility], [id number] 10:57:51 Test Item Value Reference Range Interpretation [...] tomated message] code = 1838) The system Rysto generated this result transmit markie reference range : 80.0 - 90.0 mm Hg. The reference r elizabeth was not used to interpret this result as normal/abnormal . SO2, Arterial-POC (test 35.0 % 96.0-97.0 L code = 1839) HCO3, Arterilal-POC 32.6 meq/L 21.0-29.0 H (test code = 1840) BE, Arterial-POC (test 7.0 meq/L -2.0-3.0 H : LAISHA MARKIE AT [facility] code = 1841) [address] [facility], [address]: Crime Investigator Special Agent/Techni smiley ID = [id number] for SHELBY GONZALEZ Lab Interpretation Abnormal (test code = 94450-4) [facility] [id number] 10:57:51 Test Item Value Reference Range Interpretation [...] AT [facility] [address] ARTERIAL-POC [facility], (BEAKER) (test code 14[address]: = 1841) Crime Investigator Special Agent/Techni smiley ID = [id number] for SAMY DAVIS POCT-GLUCOSE [id number] 10:21:20 Test Item Value Reference Range Interpretation Comments POC-GLUCOSE METER 117 mg/dL 70-110 H : TESTED A T [facility] [address] (BEAKER) (test code = [facility], 1538) [address]: Crime Investigator Special Agent/Techni smiley ID = [id number] for TRACEY VAZQUEZ MANDA CT brain without IV [id number] 09:31:[address] BRAIN WITHOUT IV [...] normal limits. No obstructive paranasal sinus disease.[facility] [id number] 05:45:28 Test Item Value Reference Range Interpretation Comments POC-GLUCOSE METER 116 mg/dL 70-110 H : TESTED A T [facility] 6720 (BEAKER) (test code = [place], 1538) [address]: Crime Investigator Special Agent/Techni smiley ID = [id number] for Teresa Rose BASIC METABOLIC [id number] 05:42:31 Test Item Value Reference Range Interpretation [...] not appl icable for dialysis patien ts Crime Investigator Special Agent ID - [id number] 05:40:46 Test Item Value Reference Range Interpretation Comments MAGNESIUM (BEAKER) (test code = 2.9 mg/dL 1.6-2.6 H 627) Crime Investigator Special Agent ID - [id number] 05:40:46 Test Item Value Reference Range Interpretation Comments PHOSPHORUS (BEAKER) (test code = 6.5 mg/dL 2.3-4.7 H 604) Crime Investigator Special Agent ID - ADMINCBC W/PLT COUNT & AUTO [id number] 05:38:35 Test Item Value Reference Range Interpretation [...] PERCENT (BEAKER) (test code = 2801) POCT-GLUCOSE [id number] 23:35:25 Test Item Value Reference Range Interpretation Comments POC-GLUCOSE METER 135 mg/dL 70-110 H : TESTED A T [facility] [address] (BEAKER) (test code = [facility], 1538) [address]: Crime Investigator Special Agent/Techni smiley ID = [id number] for Teresa Rose POCT-GLUCOSE [id number] 17:28:48 Test Item Value Reference Range Interpretation Comments POC-GLUCOSE METER 101 mg/dL 70-110 : TESTED A T [facility] [address] (BEAKER) (test code = [facility], 1538) [address]: Crime Investigator Special Agent/Techni smiley ID = [id number] for CIRA HUMPHREY BLOOD [id number] 17:00:30 Test Item Value Reference Range Interpretation Comments CULTURE (BEAKER) (test No growth in 5 days code = 1095) BLOOD [id number] 17:00:30 Test Item Value Reference Range Interpretation Comments CULTURE (BEAKER) (test No growth in 5 days code = 1095) XR ABDOMEN/KUB 1 VIEW [id number] 14:17:07 [facility] 1975 Sex: FXR ABDOMEN/KUB 1 VIEW PORTABLETECHNIQUE: Supine radiograph(s) of the abdomen and pelvis.HISTORY: corpak placementCOMPARISON: 12/04/2022IMPRESSION:Lines and tubes: Enteric tube is seen with tip in the stomachElectronically Signed By: Sarah Carrera11/05/2022 14:19 CDTWorkstation Name: [id number] 12:53:33 Test Item Value Reference Range Interpretation Comments POC-GLUCOSE METER 88 mg/dL 70-110 : TESTED A T [facility] 67[address] (BEAKER) (test code = [facility], 1538) [address]: Crime Investigator Special Agent/Techni smiley ID = [id number] for CIRA ROLAND POCT-GLUCOSE [id number] 06:25:50 Test Item Value Reference Range Interpretation Comments POC-GLUCOSE METER 110 mg/dL 70-110 : TESTED A T [facility] [address] (BEAKER) (test code = [facility], 1538) [address]: Crime Investigator Special Agent/Techni smiley ID = [id number] for NADEGE IVEY BASIC METABOLIC [id number] 04:16:53 Test Item Value Reference Range Interpretation [...] not appl icable for dialysis patien ts Crime Investigator Special Agent ID Gisele STEEL [id number] 04:16:53 Test Item Value Reference Range Interpretation Comments MAGNESIUM (BEAKER) (test code = 2.8 mg/dL 1.6-2.6 H 627) Crime Investigator Special Agent ID Gisele STEEL [id number] 04:16:53 Test Item Value Reference Range Interpretation Comments PHOSPHORUS (BEAKER) (test code = 5.7 mg/dL 2.3-4.7 H 604) Crime Investigator Special Agent ID Gisele STEEL WCBC W/PLT COUNT & AUTO [id number] 03:44:05 Test Item Value Reference Range Interpretation [...] PERCENT (BEAKER) (test code = 2801) POCT-GLUCOSE [id number] 23:25:33 Test Item Value Reference Range Interpretation Comments POC-GLUCOSE METER 114 mg/dL 70-110 H : TESTED A T [facility] [address] (BEAKER) (test code = [facility], 153) [address]: Crime Investigator Special Agent/Techni smiley ID = [id number] for NADEGE IVEY [id number] 18:58:11 Test Item Value Reference Range Interpretation Comments SODIUM (BEAKER) (test code = 381) 142 meq/L 136-145 Crime Investigator Special Agent ID - JSPOCT-GLUCOSE [id number] 17:04:52 Test Item Value Reference Range Interpretation Comments POC-GLUCOSE METER 142 mg/dL 70-110 H : TESTED A T [facility] [address] (BEAKER) (test code = [facility], 1538) [address]: Crime Investigator Special Agent/Techni smiley ID = [id number] for MANDA ESPARZA POCT-GLUCOSE [id number] 12:43:34 Test Item Value Reference Range Interpretation Comments POC-GLUCOSE METER 127 mg/dL 70-110 H : TESTED A T [facility] 67[address] (BEAKER) (test code = [facility] [place] [facility], 1538) [address]: Crime Investigator Special Agent/Techni smiley ID = [id number] for MANDA ESPARZA [id number] 12:42:31 Test Item Value Reference Range Interpretation Comments SODIUM (BEAKER) (test code = 381) 141 meq/L 136-145 Crime Investigator Special Agent ID - JSPOCT-GLUCOSE [id number] 05:53:11 Test Item Value Reference Range Interpretation Comments POC-GLUCOSE METER 122 mg/dL 70-110 H : TESTED A T [facility] [address] (BEAKER) (test code = AVINASH Dunn [facility], 1538) [address]: Crime Investigator Special Agent/Techni smiley ID = [id number] for NADEGE IVEY [id number] 04:57:58 Test Item Value Reference Range Interpretation Comments PHOSPHORUS (BEAKER) 6.1 mg/dL 2.3-4.7 H Specimen slightly (test code = 604) hemolyzed Crime Investigator Special Agent ID - DAMIÁN WBASIC METABOLIC [id number] 04:57:58 Test Item Value Reference Range Interpretation [...] not appl icable for dialysis patien ts Crime Investigator Special Agent ID - DAMIÁN [id number] 04:57:57 Test Item Value Reference Range Interpretation Comments MAGNESIUM (BEAKER) 2.7 mg/dL 1.6-2.6 H Specimen slightly (test code = 627) hemolyzed Crime Investigator Special Agent ID - DAMIÁN WCBC W/PLT COUNT & AUTO [id number] 04:36:11 Test Item Value Reference Range Interpretation [...] PERCENT (BEAKER) (test code = 2801) POCT-GLUCOSE [id number] 00:26:17 Test Item Value Reference Range Interpretation Comments POC-GLUCOSE METER 117 mg/dL 70-110 H : TESTED A T [facility] [address] (BEAKER) (test code = [facility], 153) [address]: Crime Investigator Special Agent/Techni smiley ID = [id number] for NADEGE IVEY [id number] 19:29:04 Test Item Value Reference Range Interpretation Comments SODIUM (BEAKER) (test code = 381) 141 meq/L 136-145 Crime Investigator Special Agent ID - ADMINPOCT-GLUCOSE [id number] 16:58:24 Test Item Value Reference Range Interpretation Comments POC-GLUCOSE METER 142 mg/dL 70-110 H : TESTED A T [facility] [address] (BEAKER) (test code = [facility], 153) [address]: Crime Investigator Special Agent/Techni smiley ID = [id number] for MANDA ESPARZA XR ABDOMEN/KUB 1 VIEW [id number] 13:01:43 [facility] : 1975 Sex: FAbdomen , one viewHistory:Feeding tube placementComparison:10/30/2022Findings:Tip of the feeding tube is near the pylorus. Nonobstructive bowel gaspattern. Cholecystectomy clips within the right upper quadrant.Electronically Signed By: Kam Vigil MD11/03/2022 13:03 CDTWorkstation Name: [id number] 12:39:24 Test Item Value Reference Range Interpretation Comments SODIUM (BEAKER) (test code = 381) 142 meq/L 136-145 POCT-GLUCOSE [id number] 12:05:03 Test Item Value Reference Range Interpretation Comments POC-GLUCOSE METER 118 mg/dL 70-110 H : TESTED A T [facility] 67[address] (BEAKER) (test code = [facility] [place], 1538) [address]: Crime Investigator Special Agent/Techni smiley ID = [id number] for MANDA ESPARZA [id number] 06:17:11 Test Item Value Reference Range Interpretation Comments PHOSPHORUS (BEAKER) (test code = 4.1 mg/dL 2.3-4.7 604) Crime Investigator Special Agent ID - DAMIÁN WBASIC METABOLIC [id number] 06:17:10 Test Item Value Reference Range Interpretation [...] not appl icable for dialysis patien ts Crime Investigator Special Agent ID - DAMIÁN [id number] 06:17:10 Test Item Value Reference Range Interpretation Comments MAGNESIUM (BEAKER) (test code = 2.4 mg/dL 1.6-2.6 627) Crime Investigator Special Agent ID - DAMIÁN WPOCT-GLUCOSE [id number] 05:50:21 Test Item Value Reference Range Interpretation Comments POC-GLUCOSE METER 121 mg/dL 70-110 H : TESTED A T [facility] 67[address] (BEAKER) (test code = AVINASH Mona [facility], 1538) [address]: Crime Investigator Special Agent/Techni smiley ID = [id number] for NADEGE IVEY CBC W/PLT COUNT & AUTO [id number] 05:25:22 Test Item Value Reference Range Interpretation [...] PERCENT (BEAKER) (test code = 2801) POCT-GLUCOSE [id number] 23:36:51 Test Item Value Reference Range Interpretation Comments POC-GLUCOSE METER 116 mg/dL 70-110 H : TESTED A T [facility] 67[address] (BEAKER) (test code = [facility] [place], 1538) [address]: Crime Investigator Special Agent/Techni smiley ID = [id number] for NADEGE IVEY [id number] 18:30:49 Test Item Value Reference Range Interpretation Comments SODIUM (BEAKER) (test code = 381) 141 meq/L 136-145 Crime Investigator Special Agent ID - ADMINPOCT-GLUCOSE [id number] 17:57:14 Test Item Value Reference Range Interpretation Comments POC-GLUCOSE METER 118 mg/dL 70-110 H : TESTED A T [facility] 67[address] (BEAKER) (test code = [facility], 1538) [address]: Crime Investigator Special Agent/Techni smiley ID = [id number] for An Donna lucas MRSA [id number] 14:39:15 Test Item Value Reference Range Interpretation Comments Result (test code = 6463-4) No [facility] [id number] 14:39:15 Test Item Value Reference Range Interpretation Comments Result (test code = 6463-4) No [facility] [id number] 14:39:15 Test Item Value Reference Range Interpretation Comments Result (test code = 6463-4) No MRSA isolated [facility] [id number] 14:39:15 Test Item Value Reference Range Interpretation Comments Result (test code = 6463-4) No [facility] isolated [facility] [id number] 14:39:15 Test Item Value Reference Range Interpretation Comments Result (test code = 6463-4) No [facility] [id number] 14:39:15 Test Item Value Reference Range Interpretation Comments Result (test code = 6463-4) No MRSA isolated [facility] [id number] 14:39:15 Test Item Value Reference Range Interpretation Comments Result (test code = 6463-4) No [facility] isolated [facility] [id number] 14:39:15 Test Item Value Reference Range Interpretation Comments Result (test code = 6463-4) No [facility] [id number] 14:39:15 Test Item Value Reference Range Interpretation Comments CULTURE (BEAKER) (test code No MRSA isolated = 1095) [id number] 13:35:39 Test Item Value Reference Range Interpretation Comments SODIUM (BEAKER) (test code = 381) 139 meq/L 136-145 Crime Investigator Special Agent ID - BVPOCT-GLUCOSE [id number] 13:06:41 Test Item Value Reference Range Interpretation Comments POC-GLUCOSE METER 134 mg/dL 70-110 H : TESTED A Jasmeet [facility] 6720 ([place]) (test code = [place], 1538) [address]: Crime Investigator Special Agent/Techni smiley ID = [id number] for An Donna lucas CT BRAIN WITHOUT IV [id number] 13:00:59 [facility] [...] Signed By: Alexandra Liang11/02/2022 13:03 CDTWorkstation Name: [id number] 06:29:29 Test Item Value Reference Range Interpretation Comments SODIUM (BEAKER) (test code = 381) 139 meq/L 136-145 BASIC METABOLIC [id number] 06:29:28 Test Item Value Reference Range Interpretation [...] not appl icable for dialysis patien ts Crime Investigator Special Agent ID - [id number] 06:29:28 Test Item Value Reference Range Interpretation Comments MAGNESIUM (BEAKER) (test code = 2.2 mg/dL 1.6-2.6 627) Crime Investigator Special Agent ID - [id number] 06:29:28 Test Item Value Reference Range Interpretation Comments PHOSPHORUS (BEAKER) (test code = 3.8 mg/dL 2.3-4.7 604) Crime Investigator Special Agent ID - MARCOPOCT-GLUCOSE [id number] 06:21:55 Test Item Value Reference Range Interpretation Comments POC-GLUCOSE METER 125 mg/dL 70-110 H : TESTED A T [facility] 67[address] (BEAKER) (test code = [facility], 1538) [address]: Crime Investigator Special Agent/Techni smiley ID = [id number] for NADEGE IVEY CBC W/PLT COUNT & AUTO [id number] 06:08:00 Test Item Value Reference Range Interpretation [...] PERCENT (BEAKER) (test code = 2801) POCT-GLUCOSE [id number] 00:19:06 Test Item Value Reference Range Interpretation Comments POC-GLUCOSE METER 99 mg/dL 70-110 : TESTED A T [facility] 6720 (BEAKER) (test code = AVINASH Dunn [facility], 1538) [address]: Crime Investigator Special Agent/Techni smiley ID = [id number] for NADEGE MORALES [id number] 18:45:56 Test Item Value Reference Range Interpretation Comments SODIUM (BEAKER) (test code = 381) 140 meq/L 136-145 Crime Investigator Special Agent ID - ADMPOCT-GLUCOSE [id number] 18:39:21 Test Item Value Reference Range Interpretation Comments POC-GLUCOSE METER 121 mg/dL 70-110 H : TESTED A T [facility] 6720 (BEAKER) (test code [facility], = 1538) [address]: Crime Investigator Special Agent/Techni smiley ID = [id number] for Latonia Connolly 2D Echo W/Doppler(CW/PW/Color)2022-11-01 17:30:35Transthoracic Echocardiography Report (TTE) Demographics Patient Name IVÁN Cabello Date of Study 11/01/2022 Gender Female Visit Number [id number] Race Unknown RoomNumber 7516 Number Date of 1975 Referring Physician Katelyn Chavez Age 47 year(s) 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 4.6 cm Pericardium No pericar dial effusion is visualized. IVC/SVC/PA/PV/Pleural The inferior vena [...] 1.72 cmAorta Ao Root S of Charis.: 3 .23 cm Ascending Aorta: 4.58 cmDoppler/Quantitative Measurements Mitral Valve MV Peak E-Wave: 0.63 m/s MV Peak A-Wave: 0.97 m/s E/A Ratio: 0.65 Peak Gradient: 1.59 mmHg Deceleration Time: 360.5 msec MVVel. Peak: Tissue Doppler E' Septal Velocity: 0.03 m/s E/E': 18.39 E' Lateral Velocity: 0.04 m/s Aortic Valve Peak Velocity: 1.97 m/s Mean Velocity: 1.2 m/s Peak Gradient: 15.45 mmHg Mean Gradient: 7.44 mmHg AV Area (continuity): 3.69 cm^2 AV VTI: 25.64 cm AV DVI: 1.2 LVOT Peak Velocity: 1.87 m/s PeakGradient: 13.99 mmHg Mean Velocity: 1.19 m/s Mean Gradient: 7.17 mmHg LVOT Diameter: 1.98 cm LVOT VTI: 30.71 cm LVOT Area: 3.08 cm^2 LVOT SV:94.51 ml LVOT CO: 7.66 l/min LVOT CI: 4.35 l/min/m^2 Pulmonic Valve Peak Velocity: 1.32 m/s Peak Gradient: 7.01 mmHgIndian [facility] HospitalODIUM2023-08-17 14:24:36 Test Item Value Reference Range Interpretation Comments SODIUM (BEAKER) (test code = 381) 140 meq/L 136-145 Crime Investigator Special Agent ID - [id number] 10:06:02 Test Item Value Reference Range Interpretation Comments POTASSIUM (BEAKER) (test code = 3.8 meq/L 3.5-5.1 379) Crime Investigator Special Agent ID - [id number] 10:06:01 Test Item Value Reference Range Interpretation Comments MAGNESIUM (BEAKER) (test code = 2.3 mg/dL 1.6-2.6 627) Crime Investigator Special Agent ID - ADMVANCOMYCIN LEVEL, [id number] 09:59:39 Test Item Value Reference Range Interpretation Comments VANCOMYCIN TROUGH (BEAKER) (test 8.4 ug/mL 10.0-20.0 L code = 522) Crime Investigator Special Agent ID - [id number] 04:21:26 Test Item Value Reference Range Interpretation Comments MAGNESIUM (BEAKER) (test code = 2.0 mg/dL 1.6-2.6 627) Crime Investigator Special Agent ID - [id number] 04:21:26 Test Item Value Reference Range Interpretation Comments PHOSPHORUS (BEAKER) (test code = 3.2 mg/dL 2.3-4.7 604) Crime Investigator Special Agent ID - ADMINBASIC METABOLIC [id number] 04:21:25 Test Item Value Reference Range Interpretation [...] not appl icable for dialysis patien ts Crime Investigator Special Agent ID - ADMINCBC W/PLT COUNT & AUTO [id number] 03:36:42 Test Item Value Reference Range Interpretation [...] 0.00-1.00 PERCENT (BEAKER) (test code = 2801) [id number] 00:11:29 Test Item Value Reference Range Interpretation Comments SODIUM (BEAKER) (test code = 381) 139 meq/L 136-145 Crime Investigator Special Agent ID - [id number] 18:25:44 Test Item Value Reference Range Interpretation Comments SODIUM (BEAKER) (test code = 381) 139 meq/L 136-145 Crime Investigator Special Agent ID - esauSARS-CoV2/Influenza/RSV RT-PCR (Symptomatic ONLY)2022-10-31 14:03:24 Test Item Value Reference Interpretation Comments Range SARS-COV2/RT-PCR Negative Negative The SARS-Co V-2 (test code = target nucleic 91222-5) acids are not detected in [facility] s specimen. Negat yesika results do [...] (test code = [place] [address]-0) not detected in this specimen. Influenza B RT-PCR Negative Negative The Flu B target (test code = [place] 37061-6) not detected in this specimen. RSV by RT-PCR (test Negative Negative The RSV target code = 43657-2) nucleic acid s are not detected in [...] the Act. Fact Sheet for Healthcare Providers:https://w linda.Vividolabs.Motion Math/Docu ments/Xpert%20Xpres s%20SARS%20CoV-2/Fa ct%20Sheets/302-390 2%53TJHA-FPG-1%20HE ALTHCARE%20PROVIDER S%20FACT%20SHEET.pd f Fact Sheet for Healthcare Patients:https://ww w.TaskBeat/Docum ents/Xpert%20Xpress %20SARS%20Cov-2/Fac t%20Sheets/302-3801 %04JVXB-BUF-7%20PAT IENT%20FACT%20SHEET .pdf Lab Interpretation Normal (test code = 54712-2) [facility] (Symptomatic ONLY) 2022-10-31 14:03:24 Test Item Value Reference Interpretation Comments Range SARS-COV2/RT-PCR Negative Negative The SARS-Co V-2 (test code = target nucleic 59079-0) acids are not detected in thi s [...] (test code = [place] [address]-1) not detected in this specimen. Influenza B RT-PCR Negative Negative The Flu B target (test code = [place] [address]63[address]-2) not detected in this specimen. RSV by RT-PCR (test Negative Negative The RSV target code = 99885-4) nucleic acid s are not detected in [...] SARS-CoV-2/Flu/RSV by their healthcare provider. [facility] from [facility] Xpert Xpress SARS-CoV-2/Flu/RSV test should [...] the Act. Fact Sheet for Healthcare Providers:https://w voxapp/Docu ments/Xpert%20Xpres s%20SARS%20CoV-2/Fa ct%20Sheets/302-390 2%17LLGH-QTH-9%20HE ALTHCARE%20PROVIDER S%20FACT%20SHEET.pd f Fact Sheet for Healthcare Patients:https://ww BodeTree/Docum ents/Xpert%20Xpress %20SARS%20Cov-2/Fac t%20Sheets/302-3801 %43DIYO-OZI-9%20PAT IENT%20FACT%20SHEET .pdf Lab Interpretation Normal (test code = 06528-9) [facility]pt[facility] ONLY[facility] 2022-10-31 14:03:24 Test Item Value Reference Interpretation Comments Range SARS-COV2/RT-PCR Negative Negative The SARS-Co V-2 (test code = target nucleic 14081-0) acids are not detected in thi s [...] (test code = [place] 28447-1) not detected in this specimen. Influenza B RT-PCR Negative Negative The Flu B target (test code = nucleic acids a re 00695-2) not detected in this specimen. RSV by RT-PCR (test Negative Negative The RSV target code = 04367-9) nucleic acid s are not detected in [...] SARS-CoV-2/Flu/RSV by their healthcare provider. [facility] SARS-CoV-2/Flu/RSV test should [...] the Act. Fact Sheet for Healthcare Providers:https://w voxapp/Docu ments/Xpert%20Xpres s%20SARS%20CoV-2/Fa ct%20Sheets/302-390 2%59WOJI-CDX-4%20HE ALTHCARE%20PROVIDER S%20FACT%20SHEET.pd f Fact Sheet for Healthcare Patients:https://Medical Connections/Docum ents/Xpert%20Xpress %20SARS%20Cov-2/Fac t%20Sheets/302-3801 %41YPJS-PNI-9%20PAT IENT%20FACT%20SHEET .pdf Lab Interpretation Normal (test code = 15523-4) [facility]Symptomatic ONLY) 2022-10-31 14:03:24 Test Item Value Reference Interpretation Comments Range SARS-COV2/RT-PCR Negative Negative The SARS-Co V-2 (test code = target nucleic 55981-8) acids are not detected in [facility] s specimen. Negat yesika results do [...] (test code = [place] 06197-3) not detected in this specimen. Influenza B RT-PCR Negative Negative The Flu B target (test code = [place] re 58962-2) not detected in this specimen. RSV by RT-PCR (test Negative Negative The RSV target code = 74639-0) nucleic acid s are not detected in [...] the Act. Fact Sheet for Healthcare Providers:https://w ww.Vividolabs.com/Docu ments/Xpert%20Xpres s%20SARS%20CoV-2/Fa ct%20Sheets/302-390 2%32FXBW-ZJA-0%20HE ALTHCARE%20PROVIDER S%20FACT%20SHEET.pd f Fact Sheet for Healthcare Patients:https://linad w.TaskBeat/Docum ents/Xpert%20Xpress %20SARS%20Cov-2/Fac t%20Sheets/302-3801 %89NUAF-QAW-3%20PAT IENT%20FACT%20SHEET .pdf Lab Interpretation Normal (test code = 91973-6) [facility]Symptomatic ONLY) 2022-10-31 14:03:24 Test Item Value Reference Interpretation Comments Range SARS-COV2/RT-PCR Negative Negative The SARS-Co V-2 (test code = target nucleic 88548-6) acids are not detected in thi s [...] om SARS-CoV-2 in a nasopharyngeal swab [facility] s suspected of COVID-19 by the ir healthcare provider. Influenza A RT-PCR Negative Negative The Flu A target (test code = [place] [address]64-4) not detected in this specimen. Influenza B RT-PCR Negative Negative The Flu B target (test code = nucleic acids a re 91927-0) not detected in this specimen. RSV by RT-PCR (test Negative Negative The RSV target code = 38285-7) nucleic acid s are not detected in [...] SARS-CoV-2/Flu/RSV by their healthcare provider. [facility]press SARS-CoV-2/Flu/RSV test should [...] the Act. Fact Sheet for Healthcare Providers:https://w voxapp/Docu ments/Xpert%20Xpres s%20SARS%20CoV-2/Fa ct%20Sheets/302-390 2%35XVJF-EQG-6%20HE ALTHCARE%20PROVIDER S%20FACT%20SHEET.pd f Fact Sheet for Healthcare Patients:https://Medical Connections/Docum ents/Xpert%20Xpress %20SARS%20Cov-2/Fac t%20Sheets/302-3801 %20JTFZ-SKX-1%20PAT IENT%20FACT%20SHEET .pdf Lab Interpretation Normal (test code = 53784-3) [facility]Symptomatic ONLY) 2022-10-31 14:03:24 Test Item Value Reference Interpretation Comments Range SARS-COV2/RT-PCR Negative Negative The SARS-Co V-2 (test code = target nucleic 45527-6) acids are not detected in thi s [...] (test code = [place] re 34991-7) not detected in this specimen. Influenza B RT-PCR Negative Negative The Flu B target (test code = nucleic [place] re 55822-1) not detected in this specimen. RSV by RT-PCR (test Negative Negative The RSV target code = 13893-6) nucleic acid s are not detected in [...] SARS-CoV-2/Flu/RSV by their healthcare provider. [facility]press SARS-CoV-2/Flu/RSV test should [...] the Act. Fact Sheet for Healthcare Providers:https://w voxapp/Docu ments/Xpert%20Xpres s%20SARS%20CoV-2/Fa ct%20Sheets/302-390 2%04OAEA-ORJ-0%20HE ALTHCARE%20PROVIDER S%20FACT%20SHEET.pd f Fact Sheet for Healthcare Patients:https://linda BodeTree/Docum ents/Xpert%20Xpress %20SARS%20Cov-2/Fac t%20Sheets/302-3801 %75CXFQ-BVI-5%20PAT IENT%20FACT%20SHEET .pdf Lab Interpretation Normal (test code = 32099-1) [facility] (Symptomatic ONLY) 2022-10-31 14:03:24 Test Item Value Reference Interpretation Comments Range SARS-COV2/RT-PCR Negative Negative The SARS-Co V-2 (test code = target nucleic 25475-5) acids are not detected in thi s [...] (test code = [place] 93909-4) not detected in this specimen. Influenza B RT-PCR Negative Negative The Flu B target (test code = [place] re 61847-2) not detected in this specimen. RSV by RT-PCR (test Negative Negative The RSV target code = 59227-9) nucleic acid s are not detected in [...] the Act. Fact Sheet for Healthcare Providers:https://w ww.Vividolabs.Motion Math/Docu ments/Xpert%20Xpres s%20SARS%20CoV-2/Fa ct%20Sheets/302-390 2%53WUKO-ENE-5%20HE ALTHCARE%20PROVIDER S%20FACT%20SHEET.pd f Fact Sheet for Healthcare Patients:https://Pathgather wVideoAvatars/Docum ents/Xpert%20Xpress %20SARS%20Cov-2/Fac t%20Sheets/302-3801 %13CIWR-XYV-6%20PAT IENT%20FACT%20SHEET .pdf Lab Interpretation Normal (test code = 12961-6) [facility] (Symptomatic ONLY) 2022-10-31 14:03:24 Test Item Value Reference Interpretation Comments Range SARS-COV2/RT-PCR Negative Negative The SARS-Co V-2 (test code = target nucleic 65329-8) acids are not detected in thi s [...] om SARS-CoV-2 in a nasopharyngeal swab [facility] s suspected of COVID-19 by the ir healthcare provider. Influenza A RT-PCR Negative Negative The Flu A target (test code = [place] 23320-2) not detected in this specimen. Influenza B RT-PCR Negative Negative The Flu B target (test code = [place] 82472-9) not detected in this specimen. RSV by RT-PCR (test Negative Negative The RSV target code = 51064-1) nucleic acid s are not detected in [...] the Act. Fact Sheet for Healthcare Providers:https://w voxapp/Docu ments/Xpert%20Xpres s%20SARS%20CoV-2/Fa ct%20Sheets/302-390 2%27FNSZ-MSK-5%20HE ALTHCARE%20PROVIDER S%20FACT%20SHEET.pd f Fact Sheet for Healthcare Patients:https://Medical Connections/Docum ents/Xpert%20Xpress %20SARS%20Cov-2/Fac t%20Sheets/302-3801 %43KNXE-ZPH-0%20PAT IENT%20FACT%20SHEET .pdf Lab Interpretation Normal (test code = 68512-2) [facility]RSV [id number] 14:03:24 Test Item Value Reference Range Interpretation Comments SARS-COV2/RT-PCR Negative Negative The SARS-Co V-2 target (test code = nucleic acids a re not 4651750) detected in thi s specimen. Negat yesika [...] This SARS CoV-2 test is a rapid, real-maricuhy e RT-PCR test intended f or the qualitative det ection of nucleic acid fr om SARS-CoV-2 in a nasopharyngeal swab specimen collec mark[facility] from individuals amanda pected of COVID-[facility] by the [facility]. INFLUENZA A RT-PCR Negative Negative The Flu A target nucleic (test code = acids are not d etected in 0224668) this specimen. INFLUENZA B RT-PCR Negative Negative The Flu B target nucleic (test code = acids are not d etected in 8201321) this specimen. RSV RT-PCR (test Negative Negative The RSV tar get nucleic code = 6325446) acids are no t detected in this [...] Xpress SARS-CoV-2/Flu/RSV by their healthcareprovider. [facility] SARS-CoV-2/Flu/RSV test should [...] of the Act.Fact Sheet for Healthcare Providers:https ://www.TaskBeat/Documents/Xpert%20Xpress%20SARS%20CoV-2/Fact%20Sheets/302-390 2%44SIDR-ZEG-0%20HEALTHCARE%20PROVIDERS%20FACT%20SHEET.pdfFact Sheet for Healthcare Patients:https://www.TaskBeat/Docum ents/Xpert%20Xpress%20SARS%20Cov-2/Fact%20Sheets/302-3801%93QRFM-ZGZ-3%20PATIENT %20FACT%20SHEET.jhqRATAYR8429-60-20 12:52:25 Test Item Value Reference Range Interpretation Comments SODIUM (BEAKER) (test code = 381) 135 meq/L 136-145 L Crime Investigator Special Agent ID - wyalNDBUPSDIM7842-48-34 12:52:24 Test Item Value Reference Range Interpretation Comments MAGNESIUM (BEAKER) (test code = 2.4 mg/dL 1.6-2.6 627) Crime Investigator Special Agent ID - esauPOCT-GLUCOSE [id number] 12:00:51 Test Item Value Reference Range Interpretation Comments POC-GLUCOSE METER 130 mg/dL 70-110 H [facility] (BE[facility]ER) (test code [facility], = 1538) [address]: Crime Investigator Special Agent/Techni smiley ID = [id number] for Kristin vitale Latonia B-TYPE NATRIURETIC FACTOR (BNP)2022-10-31 10:43:21 Test Item Value Reference Range Interpretation Comments B-TYPE NATRIURETIC PEPTIDE (BEAKER) 568 pg/mL 0-100 H (test code = 700) Crime Investigator Special Agent ID - esauVenous doppler legs wmvrfcvhn9540-14-46 08:29:42PV LAB - Lower Extremities DVT Study Demographics Patient Name IVÁN INIGUEZ Date of Study 10/31/2022 Annabel Age 47 Visit Number [id number] Gender Female Accession Number [id number] Date of 1975 Referring Kathy Zepeda MD Room Number 7516 Physician Elevator Conductor Wayne Zavala [facility] Interpreting Bia Herbert MD Physician FellowProcedureType [...] in cm/s ; Diameters [facility] [id number] 08:29:21PV LAB - Upper Extremities Veins Demographics Patient Name IVÁN INIGUEZ Date of Study 10/31/2022L Age 47 Visit Number [id number] Gender Female Accession Number [id number] Date of 1975 Referring Kathy Zepeda MD Room Number 7516 Physician Elevator Conductor Wayne Zavala [facility] Interpreting Bia Herbert MD Physician FellowProcedureType [...] There is no superficial venous obstruction in thebasilic veins.Left Impression1. There is no deep venous obstruction in the jugular, subclavian, axillary,brachial, radial or ulnar veins.2. There is no superficial venous obstruction in the cephalic orbasilicveins. Conclusions Summary Venous duplex imaging and compression of the bilateral upper extremities was performed. The veins were adequately visualized. The bilateral deep venous systems were pat ent and compressible with no evidence of thrombus. The right superficial venous system was positive with acute thrombus. The left superficial venous system was patent and compressible with no evidence of thrombus. Signature Velocities are measured in cm/s ; Diameters are measured [facility] [id number] 05:07:29 Test Item Value Reference Range Interpretation Comments MAGNESIUM (BEAKER) (test code = 1.9 mg/dL 1.6-2.6 627) Crime Investigator Special Agent ID - [id number] 05:07:29 Test Item Value Reference Range Interpretation Comments PHOSPHORUS (BEAKER) (test code = 3.7 mg/dL 2.3-4.7 604) Crime Investigator Special Agent ID - ADMINBASIC METABOLIC [id number] 05:07:28 Test Item Value Reference Range Interpretation [...] not appl icable for dialysis patien ts Crime Investigator Special Agent ID - ADMINCBC W/PLT COUNT & AUTO [id number] 04:47:13 Test Item Value Reference Range Interpretation [...] 0.00-1.00 PERCENT (BEAKER) (test code = 2801) [id number] 23:06:40 Test Item Value Reference Range Interpretation Comments SODIUM (BEAKER) (test code = 381) 133 meq/L 136-145 L Crime Investigator Special Agent ID - ADMINHIGH SENSITIVITY TROPONIN [id number] 22:59:43 Test Item Value Reference Range Interpretation Comments HIGH SENSITIVITY 92 pg/ml See_Comment H [Automated message] TROPONIN I (test code = The system which 9820749) generated this result transmitted ref erence range: <=17. Th e reference range was not used to int erpret this result as normal/abnormal . Crime Investigator Special Agent ID - ADMINThe [employer] SUPER[employer]OR STAT High Sensitivity Troponin-I results should be used in conjunction with other diagnostic information such as ECG, clinical observations and information, and patientsymptoms to aid in the diagnosis of [place]. XR ABDOMEN/KUB 1 VIEW [id number] 18:54:45 [facility] : 1975 Sex: FTECHNIQUE: XR ABDOMEN/KUB 1 VIEW PORTABLEINDICATION: corpak placement.COMPARISON: 10/29/2022FINDINGS:Feeding tube tip projecting over the body of the stomach. No specificevidence for bowel obstruction. Cholecystectomy clips are noted. Supineradiographs are insensitive for detection of free intraperitoneal ai r.IMPRESSION:Feeding tube tip projects over the body of the stomach.Electronically Signed By: Mo Soares10/30/2022 18:56 CDTWorkstation Name: [id number] SENSITIVITY TROPONIN [id number] 17:30:01 Test Item Value Reference Range Interpretation Comments HIGH SENSITIVITY 123 pg/ml See_Comment H [Automated message] TROPONIN I (test code The sy stem which = 1378088) generated this result transmitted ref erence range: <=17. Th e reference range was not used to int erpret this result as normal/abnormal . Crime Investigator Special Agent ID - BSThe [employer] SUPERVISOR STAT High Sensitivity Troponin-I results should be used in conjunctionwith other diagnostic information such as ECG, clinical observations and information, and patient symptoms to aid in the diagnosis of [place].Lactic Acid, [id number] 17:25:59 Test Item Value Reference Range Interpretation Comments Lactate, Art (test code = 1.0 mmol/L 0.5-2.0 2874) SUE (test code = SUE) Crime Investigator Special Agent ID - ADMIN Lab Interpretation (test Normal code = 36804-5) [facility], [id number] 17:25:59 Test Item Value Reference Range Interpretation Comments Lactate, Art (test code = 1.0 mmol/L 0.5-2.0 2874) SUE (test code = SUE) Crime Investigator Special Agent ID - ADMIN Lab Interpretation (test Normal code = 63933-4) [facility] CenterL[facility], [id number] 17:25:59 Test Item Value Reference Range Interpretation Comments Lactate, Art (test code = 1.0 mmol/L 0.5-2.0 2874) SUE (test code = SUE) Crime Investigator Special Agent ID - ADMIN Lab Interpretation (test Normal code = 65509-2) [facility] CenterL[facility], [id number] 17:25:59 Test Item Value Reference Range Interpretation Comments Lactate, Art (test code = 1.0 mmol/L 0.5-2.0 2874) SUE (test code = SUE) Crime Investigator Special Agent ID - ADMIN Lab Interpretation (test Normal code = 80971-8) [facility] CenterL[facility], [id number] 17:25:59 Test Item Value Reference Range Interpretation Comments Lactate, Art (test code = 1.0 mmol/L 0.5-2.0 2874) SUE (test code = SUE) Crime Investigator Special Agent ID - ADMIN Lab Interpretation (test Normal code = 44192-0) [facility] CenterL[facility], [id number] 17:25:59 Test Item Value Reference Range Interpretation Comments Lactate, Art (test code = 1.0 mmol/L 0.5-2.0 2874) SUE (test code = SUE) Crime Investigator Special Agent ID - ADMIN Lab Interpretation (test Normal code = 85771-7) [facility] CenterL[facility], [id number] 17:25:59 Test Item Value Reference Range Interpretation Comments Lactate, Art (test code = 1.0 mmol/L 0.5-2.0 2874) SUE (test code = SUE) Crime Investigator Special Agent ID - ADMIN Lab Interpretation (test Normal code = 42834-1) [facility] CenterL[facility], [id number] 17:25:59 Test Item Value Reference Range Interpretation Comments Lactate, Art (test code = 1.0 mmol/L 0.5-2.0 2874) SUE (test code = SUE) Crime Investigator Special Agent ID - ADMIN Lab Interpretation (test Normal code = 16019-0) [facility] CenterLACTIC ACID, [id number] 17:25:59 Test Item Value Reference Range Interpretation Comments LACTATE BLOOD ARTERIAL (2) 1.0 mmol/L 0.5-2.0 (BEAKER) (test code = 2874) Crime Investigator Special Agent ID - [id number] 17:21:36 Test Item Value Reference Range Interpretation Comments SODIUM (BEAKER) (test code = 381) 136 meq/L 136-145 Crime Investigator Special Agent ID - ADMINBLOOD GAS, [id number] 14:46:08 Test Item Value Reference Range Interpretation [...] FIO2 (BEAKER) (test code = 1819) 100.0 [id number] 12:47:53 Test Item Value Reference Range Interpretation Comments SODIUM (BEAKER) (test code = 381) 137 meq/L 136-145 Crime Investigator Special Agent ID - JSLACTIC ACID, [id number] 12:47:37 Test Item Value Reference Range Interpretation Comments LACTATE BLOOD 2.3 mmol/L 0.5-2.0 H Specimen sligh tly ARTERIAL (2) (BEAKER) hemoly zed (test code = 2874) Crime Investigator Special Agent ID - JSBLOOD GAS, [id number] 12:23:19 Test Item Value Reference Range Interpretation [...] FIO2 (BEAKER) (test code = 1819) 100.0 [id number] 11:15:25 Test Item Value Reference Range Interpretation Comments PROCALCITONIN (BEAKER) (test code 0.05 ng/mL <0.05 H = 3036) SEPSIS RISK (ng/mL)Low: 0.05-0.50Intermediate: 0.51-2.00High: >=2.01HIGH SENSITIVITY TROPONIN [id number] 11:10:59 Test Item Value Reference Range Interpretation Comments HIGH SENSITIVITY 139 pg/ml See_Comment H [Automated message] TROPONIN I (test code The sy stem which = 0692935) generated this result transmitted ref erence range: <=17. Th e reference range was not used to int erpret this result as normal/abnormal . Crime Investigator Special Agent ID - JSThe [employer] SUPER[employer]OR STAT High Sensitivity Troponin-I results should be used in conjunctionwith other diagnostic information such as ECG, clinical observations and information, and patient symptoms to aid in the diagnosis of [place].XR CHEST 1 VIEW PORTABLE / [id number] 10:47:01 [facility] 1975 Sex: FCLINICAL HISTORY: desaturationTECHNIQUE: 1 view of the chest.COMPARISON: 10/29/2022IMPRESSION:ETT no longer seen. New feeding tube below the diaphragm. Right centralline remains in the right atrium. There are mildly increased bilaterallower lung airspace opacities with blunting of both costophrenic angles.The cardiomediastinal silhouette is magnified by technique.Electronically Signed By: Yeyo Mills10/30/2022 10:49 CDTWorkstation Name: [id number] BRAIN WITHOUT IV [id number] 09:21:03 [facility] : 1975 [...] Signed By: Luís Mclain10/30/2022 09:23 CDTWorkstation Name: [id number] 04:21:01 Test Item Value Reference Range Interpretation Comments PHOSPHORUS (BEAKER) (test code = 3.2 mg/dL 2.3-4.7 604) Crime Investigator Special Agent ID - EMBASIC METABOLIC [id number] 04:21:00 Test Item Value Reference Range Interpretation [...] not appl icable for dialysis patien ts Crime Investigator Special Agent ID - [id number] 04:21:00 Test Item Value Reference Range Interpretation Comments MAGNESIUM (BEAKER) (test code = 1.7 mg/dL 1.6-2.6 627) Crime Investigator Special Agent ID - EMCBC W/PLT COUNT & AUTO [id number] 03:30:03 Test Item Value Reference Range Interpretation [...] 0.00-1.00 PERCENT (BEAKER) (test code = 2801) [id number] 00:34:48 Test Item Value Reference Range Interpretation Comments SODIUM (BEAKER) (test code = 381) 137 meq/L 136-145 Crime Investigator Special Agent ID - ADMINXR ABDOMEN/KUB 1 VIEW [id number] 18:55:43 [facility] 1975 Sex: FTECHNIQUE: [...] Signed By: Mo Soares10/29/2022 18:57 CDTWorkstation Name: [id number] 2022-10-29 18:31:20 Test Item Value Reference Range Interpretation Comments SODIUM (BEAKER) (test code = 381) 138 meq/L 136-145 Crime Investigator Special Agent ID - ADMINCreatinine, random [id number] 15:21:04 Test Item Value Reference Range Interpretation Comments Creatinine, Ur 24.5 mg/dL (test code = 2161-8) SUE (test code = Reference Range: No SUE) NormalsOperator ID - ADMIN [facility] CenterCreatinine, random [id number] 15:21:04 Test Item Value Reference Range Interpretation Comments Creatinine, Ur 24.5 mg/dL (test code = 2161-8) SUE (test code = Reference Range: No SUE) NormalsOperator ID - ADMIN [facility] CenterCreatinine, random [id number] 15:21:04 Test Item Value Reference Range Interpretation Comments Creatinine, Ur 24.5 mg/dL (test code = 2161-8) SUE (test code = Reference Range: No SUE) NormalsOperator ID - ADMIN [facility] CenterCreatinine, random [id number] 15:21:04 Test Item Value Reference Range Interpretation Comments Creatinine, Ur 24.5 mg/dL (test code = 2161-8) SUE (test code = Reference Range: No SUE) NormalsOperator ID - ADMIN [facility] CenterCreatinine, random [id number] 15:21:04 Test Item Value Reference Range Interpretation Comments Creatinine, Ur 24.5 mg/dL (test code = 2161-8) SUE (test code = Reference Range: No SUE) NormalsOperator ID - ADMIN [facility] CenterCreatinine, random [id number] 15:21:04 Test Item Value Reference Range Interpretation Comments Creatinine, Ur 24.5 mg/dL (test code = 2161-8) SUE (test code = Reference Range: No SUE) NormalsOperator ID - ADMIN [facility] CenterCreatinine, random [id number] 15:21:04 Test Item Value Reference Range Interpretation Comments Creatinine, Ur 24.5 mg/dL (test code = 2161-8) SUE (test code = Reference Range: No SUE) NormalsOperator ID - ADMIN [facility] CenterCreatinine, random [id number] 15:21:04 Test Item Value Reference Range Interpretation Comments Creatinine, Ur 24.5 mg/dL (test code = 2161-8) SUE (test code = Reference Range: No SUE) NormalsOperator ID - ADMIN [facility] CenterCREATININE, RANDOM [id number] 15:21:04 Test Item Value Reference Range Interpretation Comments CREATININE URINE (BEAKER) (test 24.5 mg/dL code = 375) Reference Range: No NormalsOperator ID - ADMINRapid drug screen, [id number] 14:06:15 Test Item Value Reference Range Interpretation Comments Barbiturate Screen Negative Negative (test code = 46461-7) Benzodiazepine Screen Negative Negative (test code = 35924-5) Cocaine (Metab.) Negative Negative Screen (test code = 3397-7) Methadone Screen (test Negative Negative code = 35804-7) Opiate Screen (test Negative Negative code = 49168-7) Cannabinoid Screen Negative Negative (test code = 18559-7) Amph/Methamph Screen Positive Negative A (test code = 72922-6) Phencyclidine Screen Negative Negative (test code = 09295-6) pH, UA (test code = 6.0 5.0-8.0 5803-2) SUE (test code = SUE) DRUG CUTOFF CONC.Cocaine 300 ng/mL Cannabinoid 50 ng/mLBenzodiazepine 200 ng/mLBarbiturate 200 ng/mLPhencyclidine 25 ng/mLOpiate 300 ng/mLMethadone 300 ng/mLAmphetamine/ 1000 ng/mL Methamphetamine This assay provides an unconfirmed qualitative test result for the clinical management of patients in emergency situations. Chain of custody not maintained. Some emdy-fwl-ltxtpdk medications, as well as adulterants, may cause inaccurate results. Clinical correlation should be applied. A more comprehensive drug screen or confirmation of a detected drug may be performed upon request.Crime Investigator Special Agent ID - JSOperator ID - [auto] Lab Interpretation Abnormal (test code = 18306-4) [facility] CenterRapid drug screen, [id number] 14:06:15 Test Item Value Reference Range Interpretation Comments Barbiturate Screen Negative Negative (test code = 24690-8) Benzodiazepine Screen Negative Negative (test code = 31695-4) Cocaine (Metab.) Negative Negative Screen (test code = 3397-7) Methadone Screen (test Negative Negative code = 33882-9) Opiate Screen (test Negative Negative code = 78604-4) Cannabinoid Screen Negative Negative (test code = 48347-2) Amph/Methamph Screen Positive Negative A (test code = 62392-6) Phencyclidine Screen Negative Negative (test code = 12406-0) pH, UA (test code = 6.0 5.0-8.0 5803-2) SUE (test code = SUE) DRUG CUTOFF CONC.Cocaine 300 ng/mL Cannabinoid 50 ng/mLBenzodiazepine 200 ng/mLBarbiturate 200 ng/mLPhencyclidine 25 ng/mLOpiate 300 ng/mLMethadone 300 ng/mLAmphetamine/ 1000 ng/mL Methamphetamine This assay provides an unconfirmed qualitative test result for the clinical management of patients in emergency situations. Chain of custody not maintained. Some oeet-uey-tzvhdjj medications, as well as adulterants, may cause inaccurate results. Clinical correlation should be applied. A more comprehensive drug screen or confirmation of a detected drug may be performed upon request.Crime Investigator Special Agent ID - JSOperator ID - [auto] Lab Interpretation Abnormal (test code = 15259-2) [facility], [id number] 14:06:15 Test Item Value Reference Range Interpretation Comments Barbiturate Screen Negative Negative (test code = 50501-8) Benzodiazepine Screen Negative Negative (test code = 48670-2) Cocaine (Metab.) Negative Negative Screen (test code = 3397-7) Methadone Screen (test Negative Negative code = 97385-1) Opiate Screen (test Negative Negative code = 39121-4) Cannabinoid Screen Negative Negative (test code = 78163-4) Amph/Methamph Screen Positive Negative A (test code = 29185-8) Phencyclidine Screen Negative Negative (test code = 86566-6) pH, UA (test code = 6.0 5.0-8.0 5803-2) SUE (test code = SUE) DRUG CUTOFF CONC.Cocaine 300 ng/mL Cannabinoid 50 ng/mLBenzodiazepine 200 ng/mLBarbiturate 200 ng/mLPhencyclidine 25 ng/mLOpiate 300 ng/mLMethadone 300 ng/mLAmphetamine/ 1000 ng/mL Methamphetamine This assay provides an unconfirmed qualitative test result for the clinical management of patients in emergency situations. Chain of custody not maintained. Some qmky-opm-ispgvwh medications, as well as adulterants, may cause inaccurate results. Clinical correlation should be applied. A more comprehensive drug screen or confirmation of a detected drug may be performed upon request.Crime Investigator Special Agent ID - JSOperator ID - [auto] Lab Interpretation Abnormal (test code = 29789-9) [facility], [id number] 14:06:15 Test Item Value Reference Range Interpretation Comments Barbiturate Screen Negative Negative (test code = 03126-7) Benzodiazepine Screen Negative Negative (test code = 18065-8) Cocaine (Metab.) Negative Negative Screen (test code = 3397-7) Methadone Screen (test Negative Negative code = 19614-7) Opiate Screen (test Negative Negative code = 22009-7) Cannabinoid Screen Negative Negative (test code = 67812-4) Amph/Methamph Screen Positive Negative A (test code = 98656-2) Phencyclidine Screen Negative Negative (test code = 16373-8) pH, UA (test code = 6.0 5.0-8.0 5803-2) SUE (test code = SUE) DRUG CUTOFF CONC.Cocaine 300 ng/mL Cannabinoid 50 ng/mLBenzodiazepine 200 ng/mLBarbiturate 200 ng/mLPhencyclidine 25 ng/mLOpiate 300 ng/mLMethadone 300 ng/mLAmphetamine/ 1000 ng/mL Methamphetamine This assay provides an unconfirmed qualitative test result for the clinical management of patients in emergency situations. Chain of custody not maintained. Some afdk-yzi-yzfejuc medications, as well as adulterants, may cause inaccurate results. Clinical correlation should be applied. A more comprehensive drug screen or confirmation of a detected drug may be performed upon request.Crime Investigator Special Agent ID - JSOperator ID - [auto] Lab Interpretation Abnormal (test code = 27481-3) [facility], [id number] 14:06:15 Test Item Value Reference Range Interpretation Comments Barbiturate Screen Negative Negative (test code = 32704-3) Benzodiazepine Screen Negative Negative (test code = 57470-1) Cocaine (Metab.) Negative Negative Screen (test code = 3397-7) Methadone Screen (test Negative Negative code = 62597-4) Opiate Screen (test Negative Negative code = 62071-5) Cannabinoid Screen Negative Negative (test code = 14965-6) Amph/Methamph Screen Positive Negative A (test code = 27207-4) Phencyclidine Screen Negative Negative (test code = 73498-1) pH, UA (test code = 6.0 5.0-8.0 5803-2) SUE (test code = SUE) DRUG CUTOFF CONC.Cocaine 300 ng/mL Cannabinoid 50 ng/mLBenzodiazepine 200 ng/mLBarbiturate 200 ng/mLPhencyclidine 25 ng/mLOpiate 300 ng/mLMethadone 300 ng/mLAmphetamine/ 1000 ng/mL Methamphetamine This assay provides an unconfirmed qualitative test result for the clinical management of patients in emergency situations. Chain of custody not maintained. Some onql-viy-vuciqji medications, as well as adulterants, may cause inaccurate results. Clinical correlation should be applied. A more comprehensive drug screen or confirmation of a detected drug may be performed upon request.Crime Investigator Special Agent ID - JSOperator ID - [auto] Lab Interpretation Abnormal (test code = 12368-7) [facility], [id number] 14:06:15 Test Item Value Reference Range Interpretation Comments Barbiturate Screen Negative Negative (test code = 08431-8) Benzodiazepine Screen Negative Negative (test code = 94816-6) Cocaine (Metab.) Negative Negative Screen (test code = 3397-7) Methadone Screen (test Negative Negative code = 72378-0) Opiate Screen (test Negative Negative code = 01881-4) Cannabinoid Screen Negative Negative (test code = 08381-8) Amph/Methamph Screen Positive Negative A (test code = 22039-3) Phencyclidine Screen Negative Negative (test code = 02517-2) pH, UA (test code = 6.0 5.0-8.0 5803-2) SUE (test code = SUE) DRUG CUTOFF CONC.Cocaine 300 ng/mL Cannabinoid 50 ng/mLBenzodiazepine 200 ng/mLBarbiturate 200 ng/mLPhencyclidine 25 ng/mLOpiate 300 ng/mLMethadone 300 ng/mLAmphetamine/ 1000 ng/mL Methamphetamine This assay provides an unconfirmed qualitative test result for the clinical management of patients in emergency situations. Chain of custody not maintained. Some tjvb-pzm-lbvtmwe medications, as well as adulterants, may cause inaccurate results. Clinical correlation should be applied. A more comprehensive drug screen or confirmation of a detected drug may be performed upon request.Crime Investigator Special Agent ID - JSOperator ID - [auto] Lab Interpretation Abnormal (test code = 85646-0) [facility], [id number] 14:06:15 Test Item Value Reference Range Interpretation Comments Barbiturate Screen Negative Negative (test code = 82717-2) Benzodiazepine Screen Negative Negative (test code = 22977-8) Cocaine (Metab.) Negative Negative Screen (test code = 3397-7) Methadone Screen (test Negative Negative code = 68989-8) Opiate Screen (test Negative Negative code = 70260-0) Cannabinoid Screen Negative Negative (test code = 41848-5) Amph/Methamph Screen Positive Negative A (test code = 09384-9) Phencyclidine Screen Negative Negative (test code = 49843-3) pH, UA (test code = 6.0 5.0-8.0 5803-2) SUE (test code = SUE) DRUG CUTOFF CONC.Cocaine 300 ng/mL Cannabinoid 50 ng/mLBenzodiazepine 200 ng/mLBarbiturate 200 ng/mLPhencyclidine 25 ng/mLOpiate 300 ng/mLMethadone 300 ng/mLAmphetamine/ 1000 ng/mL Methamphetamine This assay provides an unconfirmed qualitative test result for the clinical management of patients in emergency situations. Chain of custody not maintained. Some myrb-sqk-bhqxmlq medications, as well as adulterants, may cause inaccurate results. Clinical correlation should be applied. A more comprehensive drug screen or confirmation of a detected drug may be performed upon request.Crime Investigator Special Agent ID - JSOperator ID - [auto] Lab Interpretation Abnormal (test code = 79222-3) [facility], [id number] 14:06:15 Test Item Value Reference Range Interpretation Comments Barbiturate Screen Negative Negative (test code = 95218-6) Benzodiazepine Screen Negative Negative (test code = 62277-6) Cocaine (Metab.) Negative Negative Screen (test code = 3397-7) Methadone Screen (test Negative Negative code = 94086-4) Opiate Screen (test Negative Negative code = 15390-8) Cannabinoid Screen Negative Negative (test code = 30085-3) Amph/Methamph Screen Positive Negative A (test code = 33760-9) Phencyclidine Screen Negative Negative (test code = 55019-8) pH, UA (test code = 6.0 5.0-8.0 5803-2) SUE (test code = SUE) DRUG CUTOFF CONC.Cocaine 300 ng/mL Cannabinoid 50 ng/mLBenzodiazepine 200 ng/mLBarbiturate 200 ng/mLPhencyclidine 25 ng/mLOpiate 300 ng/mLMethadone 300 ng/mLAmphetamine/ 1000 ng/mL Methamphetamine This assay provides an unconfirmed qualitative test result for the clinical management of patients in emergency situations. Chain of custody not maintained. Some dzut-klx-djvsbax medications, as well as adulterants, may cause inaccurate results. Clinical correlation should be applied. A more comprehensive drug screen or confirmation of a detected drug may be performed upon request.Crime Investigator Special Agent ID - JSOperator ID - [auto] Lab Interpretation Abnormal (test code = 23739-8) [facility], [id number] 14:06:15 Test Item Value Reference Range Interpretation [...] situations. Chain of custody not maintained. Some xycc-ehg-brpnpwm medications, as well as adulterants, may cause inaccurate results. Clinical correlation should be applied. A more comprehensive drug screen or confirmation of a detected drug may be performed upon request.Crime Investigator Special Agent ID - JSOperator ID - [auto] HEMOGLOBIN [id number] 13:23:17 Test Item Value Reference Range Interpretation [...] 5.7- 6.4% indicates increased risk for diabetes (prediabetes)."Crime Investigator Special Agent ID - ADMOperator ID - ADMCTA [id number] 13:16:45CT BRAIN WITHOUT IV CONTRAST, CTA CAROTID, CTA BRAINBRAIN CT WITHOUT CONTRAST INDICATION: Unlisted Reason for Exam, intraparenchymal hematoma COMPARISON: None TECHNIQUE:Rapid acquisition spiral images were obtained between the aortic archand the cranial vertex during intravenous contrast infusion toreconstruct axial images and angiographic 3D maximum intensityprojections (MIP). 3-D volumetric reformatted images were created at [employer]. Precontrast images of the brain were [...] opacities, which mayrepresent atelectasis, pneumonia or pulmonary edema.[facility] CenterCTA [id number] 13:16:45CT BRAIN WITHOUT IV CONTRAST, CTA CAROTID, CTA BRAINBRAIN CT WITHOUT CONTRAST INDICATION: Unlisted Reason for Exam, intraparenchymal hematoma COMPARISON: None TECHNIQUE:Rapid acquisition spiral images were obtained between the aortic archand the cranial vertex during intravenous contrast infusion toreconstruct axial images and angiographic 3D maximum intensityprojections (MIP). 3-D volumetric reformatted images were created at [employer]. Precontrast images of the brain were [...] opacities, which mayrepresent atelectasis, pneumonia or pulmonary edema.[facility] CenterCTA [id number] 13:16:45 [facility] 1975 Sex: FCT BRAIN WITHOUT IV CONTRAST, CTA CAROTID, CTA BRAINBRAIN CT WITHOUT CONTRASTINDICATION: Unlisted Reason for Exam, intraparenchymal hematomaCOMPARISON: NoneTECHNIQUE:Rapid acquisition spiral images were obtained between the aortic archand the cranial vertex during intravenous contrast infusion toreconstruct axial images and angiographic 3D maximum intensityprojections (MIP). 3-D volumetric reformatted images were created at [employer]. Precontrast images of the brain were [...] Signed By: Luís Mclain10/29/2022 13:18 CDTWorkstation Name: [id number] BRAIN WITHOUT IV [id number] 13:16:45 [facility] : 1975 Sex: FCT BRAIN WITHOUT IV CONTRAST, CTA CAROTID, CTA BRAINBRAIN CT WITHOUT CONTRASTINDICATION: Unlisted Reason for Exam, intraparenchymal hematomaCOMPARISON: NoneTECHNIQUE:Rapid acquisition spiral images were obtained between the aortic archand the cranial vertex during intravenous contrast infusion toreconstruct axial images and angiographic 3D maximum intensityprojections (MIP). 3-D volumetric reformatted images were created at [employer]. Precontrast images of the brain were [...] Signed By: Luís Mclain10/29/2022 13:18 CDTWorkstation Name: [id number] 13:16:45[facility] : 1975 Sex: FCT BRAIN WITHOUT IV CONTRAST, CTA CAROTID, CTA BRAINBRAIN CT WITHOUT CONTRASTINDICATION: Unlisted Reason for Exam, intraparenchymal hematomaCOMPARISON: NoneTECHNIQUE:Rapid acquisition spiral images were obtained between the aortic archand the cranial vertex during intravenous contrast infusion toreconstruct axial images and angiographic 3D maximum intensityprojections (MIP). 3-D volumetric reformatted images were created at [employer]. Precontrast images of the brain were [...] Signed By: Luís Mclain10/29/2022 13:18 CDTWorkstation Name: [id number] Chang, [id number] 13:15:24 Test Item Value Reference Range Interpretation Comments GONADOTROPIN, CHORIONIC (HCG) QUANT < mIU/mL 0-10 (BEAKER) (test code = 649) Non- Females: <10 mIU/mL Females: Gestation Age Reference Range(mIU/mL) 0.2-1 Week 5-50 1-2 Weeks 50-500 2-3 Weeks 100-5,000 3-4 Weeks 500-10,000 4-5 Weeks 1,000-50,000 5-6 Weeks 10,000-100,000 6-8 Weeks 15,000- 200,000 2-3 Months 10,000-100,000 Crime Investigator Special Agent ID - Jorgeli, [id number] 13:07:55 Test Item Value Reference Range Interpretation Comments Osmolality, Ur (test code 529 See_Comment [ Automated message] = 2695-5) The system [employer] generated this result transmitted ref erence range: 50-1,200 mOsm/kg mOsm/kg . The reference range was not used to int erpret this result as normal/abnormal . Lab Interpretation (test Normal code = 98292-5) [facility], [id number] 13:07:55 Test Item Value Reference Range Interpretation Comments Osmolality, Ur (test code 529 See_Comment [ Automated message] = 2695-5) The system [employer] generated this result transmitted ref erence range: 50-1,200 mOsm/kg mOsm/kg . The reference range was not used to int erpret this result as normal/abnormal . Lab Interpretation (test Normal code = 21477-2) [facility] CenterOsmolality, [id number] 13:07:55 Test Item Value Reference Range Interpretation Comments Osmolality, Ur (test code 529 See_Comment [ Automated message] = 2695-5) The system [employer] generated this result transmitted ref erence range: 50-1,200 mOsm/kg mOsm/kg . The reference range was not used to int erpret this result as normal/abnormal . Lab Interpretation (test Normal code = 39141-5) [facility], [id number] 13:07:55 Test Item Value Reference Range Interpretation Comments Osmolality, Ur (test code 529 See_Comment [ Automated message] = 2695-5) The system [employer] generated this result transmitted ref erence range: 50-1,200 mOsm/kg mOsm/kg . The reference range was not used to int erpret this result as normal/abnormal . Lab Interpretation (test Normal code = 38757-8) [facility], [id number] 13:07:55 Test Item Value Reference Range Interpretation Comments Osmolality, Ur (test code 529 See_Comment [ Automated message] = 2695-5) The system [employer] generated this result transmitted ref erence range: 50-1,200 mOsm/kg mOsm/kg . The reference range was not used to int erpret this result as normal/abnormal . Lab Interpretation (test Normal code = 33892-6) [facility], [id number] 13:07:55 Test Item Value Reference Range Interpretation Comments Osmolality, Ur (test code 529 See_Comment [ Automated message] = 2695-5) The system [employer] generated this result transmitted ref erence range: 50-1,200 mOsm/kg mOsm/kg . The reference range was not used to int erpret this result as normal/abnormal . Lab Interpretation (test Normal code = 29289-2) [facility], [id number] 13:07:55 Test Item Value Reference Range Interpretation Comments Osmolality, Ur (test code 529 See_Comment [ Automated message] = 2695-5) The system [employer] generated this result transmitted ref erence range: 50-1,200 mOsm/kg mOsm/kg . The reference range was not used to int erpret this result as normal/abnormal . Lab Interpretation (test Normal code = 81213-4) [facility], [id number] 13:07:55 Test Item Value Reference Range Interpretation Comments Osmolality, Ur (test code 529 See_Comment [ Automated message] = 2695-5) The system Yu Rong h generated this result transmitted ref erence range: 50-1,200 mOsm/kg mOsm/kg . The reference range was not used to int erpret this result as normal/abnormal . Lab Interpretation (test Normal code = 19223-6) [facility] CenterOSMOLALITY, [id number] 13:07:55 Test Item Value Reference Range Interpretation Comments OSMOLALITY URINE 529 mOsm/kg See_Comment [Automated message] (BEAKER) (test code = The sy stem which 614) generated this result transmitted ref erence range: 50-1,200 mOsm/kg. The reference range was not used to int erpret this result as normal/abnormal . Urea Nitrogen, random [id number] 12:57:04 Test Item Value Reference Range Interpretation Comments Urea Nitrogen, Ur 186 mg/dL (test code = 3095-7) SUE (test code = Reference Range: No SUE) NormalsOperator ID - [facility] [id number] 12:57:04 Test Item Value Reference Range Interpretation Comments Urea Nitrogen, Ur 186 mg/dL (test code = 3095-7) SUE (test code = Reference Range: No SUE) NormalsOperator ID - [facility], random [id number] 12:57:04 Test Item Value Reference Range Interpretation Comments Urea Nitrogen, Ur 186 mg/dL (test code = 3095-7) SUE (test code = Reference Range: No SUE) NormalsOperator ID - [facility] N[facility], random [id number] 12:57:04 Test Item Value Reference Range Interpretation Comments Urea Nitrogen, Ur 186 mg/dL (test code = 3095-7) SUE (test code = Reference Range: No SUE) NormalsOperator ID - [facility], random [id number] 12:57:04 Test Item Value Reference Range Interpretation Comments Urea Nitrogen, Ur 186 mg/dL (test code = 3095-7) SUE (test code = Reference Range: No SUE) NormalsOperator ID - [facility]Urea Nitrogen, random [id number] 12:57:04 Test Item Value Reference Range Interpretation Comments Urea Nitrogen, Ur 186 mg/dL (test code = 3095-7) SUE (test code = Reference Range: No SEU) NormalsOperator ID - [facility] N[facility], random [id number] 12:57:04 Test Item Value Reference Range Interpretation Comments Urea Nitrogen, Ur 186 mg/dL (test code = 3095-7) SUE (test code = Reference Range: No SUE) NormalsOperator ID - [facility]Urea Nitrogen, random [id number] 12:57:04 Test Item Value Reference Range Interpretation Comments Urea Nitrogen, Ur 186 mg/dL (test code = 3095-7) SUE (test code = Reference Range: No SUE) NormalsOperator ID - [facility]UREA NITROGEN, RANDOM [id number] 12:57:04 Test Item Value Reference Range Interpretation Comments UREA NITROGEN URINE (BEAKER) (test 186 mg/dL code = 538) Reference Range: No NormalsOperator ID - Sodium, random [id number] 12:57:03 Test Item Value Reference Range Interpretation Comments Sodium Urine (test 155 meq/L code = 2955-3) SUE (test code = Reference Range: No SUE) NormalsOperator [facility] [id number] 12:57:03 Test Item Value Reference Range Interpretation Comments Sodium Urine (test 155 meq/L code = 2955-3) SUE (test code = Reference Range: No SUE) NormalsOperator ID [facility] [id number] 12:57:03 Test Item Value Reference Range Interpretation Comments Sodium Urine (test 155 meq/L code = 2955-3) SUE (test code = Reference Range: No SUE) NormalsOperator ID - [facility] random [id number] 12:57:03 Test Item Value Reference Range Interpretation Comments Sodium Urine (test 155 meq/L code = 2955-3) SUE (test code = Reference Range: No SUE) NormalsOperator ID - [facility] random [id number] 12:57:03 Test Item Value Reference Range Interpretation Comments Sodium Urine (test 155 meq/L code = 2955-3) SUE (test code = Reference Range: No SUE) NormalsOperator ID - [facility] [id number] 12:57:03 Test Item Value Reference Range Interpretation Comments Sodium Urine (test 155 meq/L code = 2955-3) SUE (test code = Reference Range: No SUE) NormalsOperator ID - [facility] [id number] 12:57:03 Test Item Value Reference Range Interpretation Comments Sodium Urine (test 155 meq/L code = 2955-3) USE (test code = Reference Range: No SUE) NormalsOperator ID - [facility], random [id number] 12:57:03 Test Item Value Reference Range Interpretation Comments Sodium Urine (test 155 meq/L code = 2955-3) SUE (test code = Reference Range: No SUE) NormalsOperator ID - [facility]OD[facility], RANDOM [id number] 12:57:03 Test Item Value Reference Range Interpretation Comments SODIUM URINE (BEAKER) (test code = 155 meq/L 243) Reference Range: No NormalsOperator ID - JSOSMOLALITY, [id number] 12:52:21 Test Item Value Reference Range Interpretation Comments OSMOLALITY, SERUM (BEAKER) (test 290 mOsm/kg 275-295 code = 615) [id number] 12:52:14 Test Item Value Reference Range Interpretation Comments SODIUM (BEAKER) (test code = 381) 140 meq/L 136-145 Crime Investigator Special Agent ID - MARCOPregnancy Screen, [id number] 09:52:55 Test Item Value Reference Range Interpretation Comments Preg Test, Ur (test code = 2112-1) Negative Negative Lab Interpretation (test code = Normal 38758-4) [facility], [id number] 09:52:55 Test Item Value Reference Range Interpretation Comments Preg Test, Ur (test code = 2112-1) Negative Negative Lab Interpretation (test code = Normal 53407-3) [facility], [id number] 09:52:55 Test Item Value Reference Range Interpretation Comments Preg Test, Ur (test code = 2112-1) Negative Negative Lab Interpretation (test code = Normal 93441-1) [facility], [id number] 09:52:55 Test Item Value Reference Range Interpretation Comments Preg Test, Ur (test code = 2112-1) Negative Negative Lab Interpretation (test code = Normal 75328-4) [facility], [id number] 09:52:55 Test Item Value Reference Range Interpretation Comments Preg Test, Ur (test code = 2112-1) Negative Negative Lab Interpretation (test code = Normal 69230-1) [facility] CenterPre[facility] Screen, [id number] 09:52:55 Test Item Value Reference Range Interpretation Comments Preg Test, Ur (test code = 2-1) Negative Negative Lab Interpretation (test code = Normal 86162-3) [facility], [id number] 09:52:55 Test Item Value Reference Range Interpretation Comments Preg Test, Ur (test code = 2-1) Negative Negative Lab Interpretation (test code = Normal 51422-4) [facility] CenterPre[facility] Screen, [id number] 09:52:55 Test Item Value Reference Range Interpretation Comments Preg Test, Ur (test code = 2-1) Negative Negative Lab Interpretation (test code = Normal 22368-5) [facility] CenterPREGNANCY SCREEN, [id number] 09:52:55 Test Item Value Reference Range Interpretation Comments TEST URINE (BEAKER) (test Negative Negative code = 583) BLOOD GAS, [id number] 08:02:40 Test Item Value Reference Range Interpretation [...] (BEAKER) (test code = 1819) 40.0 T4, [id number] 06:13:37 Test Item Value Reference Range Interpretation Comments FREE T4 (BEAKER) (test code = 655) 0.90 ng/dL 0.70-1.48 Crime Investigator Special Agent ID - ADMINTSH/FREE T4 IF [id number] 05:34:42 Test Item Value Reference Range Interpretation Comments THYROID STIMULATING HORMONE 6.331 uIU/mL 0.350-4.940 H (BEAKER) (test code = 772) Crime Investigator Special Agent ID - [id number] 05:26:57 Test Item Value Reference Range Interpretation Comments MAGNESIUM (BEAKER) (test code = 1.8 mg/dL 1.6-2.6 627) Crime Investigator Special Agent ID - [id number] 05:26:57 Test Item Value Reference Range Interpretation Comments PHOSPHORUS (BEAKER) (test code = 3.0 mg/dL 2.3-4.7 604) Crime Investigator Special Agent ID - MARCOCOMPREHENSIVE METABOLIC [id number] 05:26:56 Test Item Value Reference Range Interpretation [...] not appl icable for dialysis patien ts Crime Investigator Special Agent ID - MARCOXR CHEST 1 VIEW PORTABLE / [id number] 05:03:50 [facility] : 1975 [...] contours with cardiomegaly.Additional findings: None.Electronically Signed By: Jazeil Monte10/29/2022 05:05 CDTWorkstation Name: [id number] 04:56:04 Test Item Value Reference Range Interpretation Comments PARTIAL THROMBOPLASTIN TIME 30.4 seconds 22.5-36.0 (BEAKER) (test code = 760) PROTHROMBIN TIME/[id number] 04:55:22 Test Item Value Reference Range Interpretation Comments PROTIME (BEAKER) 13.6 seconds 11.9-14.2 (test code = 759) INR (BEAKER) (test 1.06 See_Comment [Automat ed message] code = 370) The system Rysto generated this result transmitted ref erence range: <=5.90. The reference range was not used to int erpret this result as normal/abnormal . RECOMMENDED COUMADIN/WARFARIN INR THERAPY RANGESSTANDARD DOSE: 2.0 - 3.0 Includes: PROPHYLAXIS for venous thrombosis, systemic embolization; TREATMENT for venous thrombosis and/or pulmonary embolus.HIGH RISK: Target INR is 2.5-3.5 for patients with mechanical heart valves.CBC W/PLT COUNT & AUTO [id number] 04:50:18 Test Item Value Reference Range Interpretation [...] (BEAKER) (test code = 2801) BLOOD GAS, [id number] 04:03:20 Test Item Value Reference Range Interpretation [...] (BEAKER) (test code = 1819) 60.0 CALCIUM, [id number] 03:59:22 Test Item Value Reference Range Interpretation Comments CALCIUM IONIZED (BEAKER) (test 1.09 mmol/L 1.12-1.27 L code = 698) PH, BLOOD (BEAKER) (test code = 7.33 1810) [place] [id number] 03:47:51Murray Elise NP 10/29/2022 3:48 AMCentral Line [...] to verify the correct patient, procedure, equipment, support assistant and site/side marked as required.Indications:vascular [...] NoneType of anesthesia: NoneGrafts or Implants: None[facility] [id number] 03:47:51Murray Elise NP 10/29/2022 3:48 AMCentral Line [...] to verify the correct patient, procedure, equipment, support assistant and site/side marked as required.Indications:vascular [...] NoneType of anesthesia: NoneGrafts or Implants: [facility] 2022-10-29 03:47:51Murray Elise NP 10/29/2022 [...] to verify the correct patient, procedure, equipment, support assistant and site/side marked as required.Indications:vascular [...] NoneType of anesthesia: NoneGrafts or Implants: None[facility] [id number] 03:47:51Murray Elise NP 10/29/2022 3:48 AMCentral Line [...] to verify the correct patient, procedure, equipment, support assistant and site/side marked as required.Indications:vascular [...] NoneComplications: NoneType of anesthesia: NoneGrafts or Implants: [facility] Line 2022-10-29 03:47:51Murray Elise NP 10/29/2022 3:48 [...] to verify the correct patient, procedure, equipment, support assistant and site/side marked as required.Indications:vascular [...] NoneComplications: NoneType of anesthesia: NoneGrafts or Implants: [facility] [id number] 03:47:51Murray Elise NP 10/29/2022 3:48 AMCentral Line [...] to verify the correct patient, procedure, equipment, support assistant and site/side marked as required.Indications:vascular [...] NoneType of anesthesia: NoneGrafts or Implants: [facility] 2022-10-29 03:47:51Murray Elise NP 10/29/2022 3:48 [facility] Date/Time: 10/29/2022 3:47 AMPerformed by: Murray [...] to verify the correct patient, procedure, equipment, support assistant and site/side marked as required.Indications:vascular [...] NoneType of anesthesia: NoneGrafts or Implants: None[facility] [id number] 03:47:51Murray Elise NP 10/29/2022 3:48 AMCentral Line [...] to verify the correct patient, procedure, equipment, support assistant and site/side marked as required.Indications:vascular [...] NoneComplications: NoneType of anesthesia: NoneGrafts or Implants: None[facility] CenterInsert [facility]terial [id number] 03:46:45Murray Elise NP 10/29/2022 3:47 AMInsert Arterial [...] to verify the correct patient, procedure, equipment, support assistant and site/side marked as required.Preparation: Patient was prepped and draped in the usual sterile fashion.Indications: multiple ABGs and hemodynamic monitoringLocation: right radial Anesthesia:Local Anesthetic: lidocaine 2% without epinephrineAllen's test normal: yesNeedle gauge: 18Seldinger technique: Seldinger technique usedNumber of attempts: 1Post-procedure: line sutured and dressing appliedPost-procedure CMS: normalPatienttolerance: patient tolerated the procedure well with no immediate complicationsDoctors Medical Center Insert Arterial [id number] 03:46:45Murray Elise NP 10/29/2022 3:47 AMInsert Arterial [...] to verify the correct patient, procedure, equipment, support assistant and site/side marked as required.Preparation: Patient was prepped and draped in the usual sterile fashion.Indications: multiple ABGs and hemodynamic monitoringLocation: right radial Anesthesia:Local Anesthetic: lidocaine 2% without epinephrineAllen's test normal: yesNeedle gauge: 18Seldinger technique: Seldinger technique usedNumber of attempts: 1Post-procedure: line sutured and dressing appliedPost-procedure CMS: normalPatienttolerance: patient tolerated the procedure well with no immediate complicationsCH[facility] Hospital Insert Arterial [id number] 03:46:45Murray Elise NP 10/29/2022 3:47 AMInsert Arterial [...] to verify the correct patient, procedure, equipment, support assistant and site/side marked as required.Preparation: Patient was prepped and draped in the usual sterile fashion.Indications: multiple ABGs and hemodynamic monitoringLocation: right radial Anesthesia:Local Anesthetic: lidocaine 2% without epinephrineAllen's test normal: yesNeedle gauge: 18Seldinger technique: Seldinger technique usedNumber of attempts: 1Post-procedure: line sutured and dressing appliedPost-procedure CMS: normalPatienttolerance: patient tolerated the procedure well with no immediate complicationsCH[facility] Hospital Insert Arterial [id number] 03:46:45Murray Elise NP 10/29/2022 3:47 AMInsert Arterial [...] to verify the correct patient, procedure, equipment, support assistant and site/side marked as required.Preparation: Patient was prepped and draped in the usual sterile fashion.Indications: multiple ABGs and hemodynamic monitoringLocation: right radial Anesthesia:Local Anesthetic: lidocaine 2% without epinephrineAllen's test normal: yesNeedle gauge: 18Seldinger technique: Seldinger technique usedNumber of attempts: 1Post-procedure: line sutured and dressing appliedPost-procedure CMS: normalPatienttolerance: patient tolerated the procedure well with no immediate complicationsCH[facility] Hospital Insert Arterial [id number] 03:46:45Murray Elise NP 10/29/2022 3:47 AMInsert Arterial [...] to verify the correct patient, procedure, equipment, support assistant and site/side marked as required.Preparation: Patient was prepped and draped in the usual sterile fashion.Indications: multiple ABGs and hemodynamic monitoringLocation: right radial Anesthesia:Local Anesthetic: lidocaine 2% without epinephrineAllen's test normal: yesNeedle gauge: 18Seldinger technique: Seldinger technique usedNumber of attempts: 1Post-procedure: line sutured and dressing appliedPost-procedure CMS: normalPatienttolerance: patient tolerated the procedure well with no immediate complicationsCH[facility] Hospital Insert Arterial [id number] 03:46:45Murray Elise NP 10/29/2022 3:47 AMInsert Arterial [...] to verify the correct patient, procedure, equipment, support assistant and site/side marked as required.Preparation: Patient was prepped and draped in the usual sterile fashion.Indications: multiple ABGs and hemodynamic monitoringLocation: right radial Anesthesia:Local Anesthetic: lidocaine 2% without epinephrineAllen's test normal: yesNeedle gauge: 18Seldinger technique: Seldinger technique usedNumber of attempts: 1Post-procedure: line sutured and dressing appliedPost-procedure CMS: normalPatienttolerance: patient tolerated the procedure well with no immediate complicationsCH[facility] Hospital Insert Arterial [id number] 03:46:45Murray Elise NP 10/29/2022 3:47 AMInsert Arterial [...] to verify the correct patient, procedure, equipment, support assistant and site/side marked as required.Preparation: Patient was prepped and draped in the usual sterile fashion.Indications: multiple ABGs and hemodynamic monitoringLocation: right radial Anesthesia:Local Anesthetic: lidocaine 2% without epinephrineAllen's test normal: yesNeedle gauge: 18Seldinger technique: Seldinger technique usedNumber of attempts: 1Post-procedure: line sutured and dressing appliedPost-procedure CMS: normalPatienttolerance: patient tolerated the procedure well with no immediate complicationsCH[facility] Insert Arterial [id number] 03:46:45Murray Elise NP 10/29/2022 3:47 AMInsert Arterial [...] Immediately prior to procedure a "time out" wascalled to verify the correct patient, procedure, equipment, support assistant and site/side marked as required.Preparation: Patient was prepped and draped in the usual sterile fashion.Indications: multipleABGs and hemodynamic monitoringLocation: right radial Anesthesia:Local Anesthetic: lidocaine 2% witho ut epinephrineAllen's test normal: yesNeedle gauge: 18Seldinger technique: Seldinger technique usedNumber of attempts: 1Post-procedure: line sutured and dressing appliedPost-procedure CMS: normalPatient tolerance: patient tolerated the procedure well with no immediate complicationsDoctors Medical Center AKS-[id number] 00:00:00Ordered by an unspecified provider.[facility] CenterEKG-[id number] 00:00:00Ordered by an unspecified provider. [facility]-[id number] 00:00:00Ordered by an unspecified provider.[facility] CenterEKG-[id number] 00:00:00 Ordered by an unspecified provider.[facility] CenterEKG-SCANNED 2022-10-29 00:00:00Ordered by an unspecified provider.[facility] CenterEKG-[id number] 00:00:00Ordered by an unspecified provider.[facility] CenterEKG-[id number] 00:00:00Ordered by an unspecified provider.[facility] CenterEKG-[id number] 00:00:00Ordered by an unspecified provider.[facility] CenterFungus culture + [id number] 08:28:10 Test Item Value Reference Range Interpretation Comments Result (test code = No fungus isolated in 6463-4) 28 days Fungus Smear (test No fungal elements seen code = 1406) [facility] + [id number] 08:28:10 Test Item Value Reference Range Interpretation Comments Result (test code = No fungus isolated in 63) 28 days Fungus Smear (test No fungal elements seen code = 1406) [facility] CenterF[facility] + [id number] 08:28:10 Test Item Value Reference Range Interpretation Comments Result (test code = No fungus isolated in 63) 28 days Fungus Smear (test No fungal elements seen code = 1406) [facility] Center[facility] + [id number] 08:28:10 Test Item Value Reference Range Interpretation Comments Result (test code = No fungus isolated in 63) 28 days Fungus Smear (test No fungal elements seen code = 1406) [facility] [id number] 08:28:10 Test Item Value Reference Range Interpretation Comments Result (test code = No fungus isolated in [facility]) 28 days Fungus Smear (test No fungal elements seen code = 1406) [facility] Center[facility] + [id number] 08:28:10 Test Item Value Reference Range Interpretation Comments Result (test code = No fungus isolated in 63) 28 days Fungus Smear (test No fungal elements seen code = 1406) [facility] Center[facility] + [id number] 08:28:10 Test Item Value Reference Range Interpretation Comments Result (test code = No fungus isolated in 63) 28 days Fungus Smear (test No fungal elements seen code = 1406) [facility] Center[facility] + [id number] 08:28:10 Test Item Value Reference Range Interpretation Comments Result (test code = No fungus isolated in 63) 28 days Fungus Smear (test No fungal elements seen code = 1406) [facility] [id number] 08:28:10 Test Item Value Reference Range Interpretation Comments Result (test code = No fungus isolated in 63) 28 days Fungus Smear (test No fungal elements seen code = 1406) [facility] Center[facility] + [id number] 08:28:10 Test Item Value Reference Range Interpretation Comments CULTURE (BEAKER) (test No fungus isolated in code = 1095) 28 days FUNGUS SMEAR (BEAKER) No fungal elements seen (test code = 1406) [id number] 05:54:28 Test Item Value Reference Range Interpretation Comments MAGNESIUM (BEAKER) (test code = 1.9 mg/dL 1.6-2.6 627) Crime Investigator Special Agent ID - [id number] 05:54:28 Test Item Value Reference Range Interpretation Comments PHOSPHORUS (BEAKER) (test code = 5.2 mg/dL 2.3-4.7 H 604) Crime Investigator Special Agent ID - MARCOBASIC METABOLIC [id number] 05:54:27 Test Item Value Reference Range Interpretation [...] not appl icable for dialysis patien ts Crime Investigator Special Agent ID - MARCOCBC W/PLT COUNT & AUTO [id number] 05:42:51 Test Item Value Reference Range Interpretation [...] PERCENT (BEAKER) (test code = 2801) CALCIUM, [id number] 05:36:04 Test Item Value Reference Range Interpretation Comments CALCIUM IONIZED (BEAKER) (test 1.12 mmol/L 1.12-1.27 code = 698) PH, BLOOD (BEAKER) (test code = 7.42 1810) Anaerobic [id number] 02:03:45 Test Item Value Reference Range Interpretation Comments Result (test code = No anaerobes isolated 6463-4) [facility] [id number] 02:03:45 Test Item Value Reference Range Interpretation Comments Result (test code = No anaerobes isolated 6463-4) [facility] [id number] 02:03:45 Test Item Value Reference Range Interpretation Comments Result (test code = No anaerobes isolated 6463-4) [facility] [id number] 02:03:45 Test Item Value Reference Range Interpretation Comments Result (test code = No anaerobes isolated 6463-4) [facility] [id number] 02:03:45 Test Item Value Reference Range Interpretation Comments Result (test code = No anaerobes isolated 6463-4) [facility] [id number] 02:03:45 Test Item Value Reference Range Interpretation Comments Result (test code = No anaerobes isolated 6463-4) [facility] [id number] 02:03:45 Test Item Value Reference Range Interpretation Comments Result (test code = No anaerobes isolated 6463-4) [facility]2023-05-27 02:03:45 Test Item Value Reference Range Interpretation Comments Result (test code = No anaerobes isolated 6463-4) [facility] [id number] 02:03:45 Test Item Value Reference Range Interpretation Comments Result (test code = No anaerobes isolated 6463-4) [facility] [id number] 02:03:45 Test Item Value Reference Range Interpretation Comments CULTURE (BEAKER) (test No anaerobes isolated code = 1095) STD Panel - CT/GC [id number] 17:37:44 Test Item Value Reference Interpretation Comments Range C. trachomatis NOT DETECTED RNA, TMA (test code = 8622545) N. gonorrhoeae NOT DETECTED REFERENCE RA NGE: NOT RNA, TMA (test DETECTED Meth odology: code = 0336750) Transcriptio n Mediated Amplification ( TMA)to detect RNA. The analytical perf ormance characteristics of thisassay, when used to test SurePat h(TM) specimens haveb een determined by [employer]. Th e modificationsha ve not been cleared or approved by the FDA. This assayhas b een validated pursu ant to the CLIA regula tions andis used for clinical purpos es. For additional information, pl ease refer tohttps://ActionFlow/faq /FBD737(This li nk is being provided for informational/e ducatio nal purposes on ly.) SUE (test code = Performing Lab SUE) *[facility] [address] [place] [address] Sylvie Gresham MD, PhD [facility]GC [id number] 17:37:44 Test Item Value Reference Interpretation Comments Range C. trachomatis NOT DETECTED RNA, TMA (test code = 5588666) N. gonorrhoeae NOT DETECTED REFERENCE RA NGE: NOT RNA, TMA (test DETECTED Meth odology: code = 6119821) Transcriptio n Mediated Amplification ( TMA)to detect RNA. The analytical perf ormance characteristics of thisassay, when used to test SurePat h(TM) specimens haveb een determined by [employer]. Th e modificationsha ve not been cleared or approved by the FDA. This assayhas b een validated pursu ant to the CLIA regula tions andis used for clinical purpos es. For additional information, pl ease refer tohttps://InfoGina Plibber/faq /VJJ801(This li nk is being provided for informational/e ducatio nal purposes on ly.) SUE (test code = Performing Lab SUE) *[facility] [address] [place] [address] Sylvie Gresham MD, PhD [facility] Panel - CT/GC [id number] 17:37:44 Test Item Value Reference Interpretation Comments Range C. trachomatis NOT DETECTED RNA, TMA (test code = 7826968) N. gonorrhoeae NOT DETECTED REFERENCE RA NGE: NOT RNA, TMA (test DETECTED Meth odology: code = 7177564) Transcriptio n Mediated Amplification ( TMA)to detect RNA. The analytical perf ormance characteristics of thisassay, when used to test SurePat h(TM) specimens haveb een determined by [facility] [employer] [facility]. Th e modificationsha ve not been cleared or approved by the FDA. This assayhas b een validated pursu ant to the CortexymeIA regula tions andis used for clinical purpos es. For additional information, pl ease refer tohttps://educa Plibber/faq /ESX663(This li nk is being provided for informational/e ducatio nal purposes on ly.) SUE (test code = Performing Lab SUE) *[facility] [place] [id number] [place] [address] Sylvie Gresham MD, PhD [facility] Panel - CT/GC [id number] 17:37:44 Test Item Value Reference Interpretation Comments Range C. trachomatis NOT DETECTED RNA, TMA (test code = 4380405) N. gonorrhoeae NOT DETECTED REFERENCE RA NGE: NOT RNA, TMA (test DETECTED Meth odology: code = 9035731) Transcriptio n Mediated Amplification ( TMA)to detect RNA. The analytical perf ormance characteristics of thisassay, when used to test SurePat h(TM) specimens haveb een determined by [employer] [facility]. Th e modificationsha ve not been cleared or approved by the FDA. This assayhas b een validated pursu ant to the CLIA regula tions andis used for clinical purpos es. For additional information, pl ease refer tohttps://educa tiCyclos Semiconductor/faq /MCB360(This li nk is being provided for informational/e ducatio nal purposes on ly.) SUE (test code = Performing Lab SUE) *[facility] [address] Sylvie Gresham MD, PhD [facility] Panel - CT/GC [id number] 17:37:44 Test Item Value Reference Interpretation Comments Range C. trachomatis NOT DETECTED RNA, TMA (test code = 3128584) N. gonorrhoeae NOT DETECTED REFERENCE RA NGE: NOT RNA, TMA (test DETECTED Meth odology: code = 7095798) Transcriptio n Mediated Amplification ( TMA)to detect RNA. The analytical perf ormance characteristics of thisassay, when used to test SurePat h(TM) specimens haveb een determined by [employer] [facility]. Th e modificationsha ve not been cleared or approved by the FDA. This assayhas b een validated pursu ant to the CortexymeIA BiancaMeda tions andis used for clinical purpos es. For additional information, pl ease refer tohttps://educa tion.CoverPage Publishing/faq /FMO549(This li nk is being provided for informational/e ducatio nal purposes on ly.) SUE (test code = Performing Lab SUE) *[facility] [address] [address] Sylvie Gresham MD, PhD [facility] Panel - CT/GC [id number] 17:37:44 Test Item Value Reference Interpretation Comments Range C. trachomatis NOT DETECTED RNA, TMA (test code = 8147002) N. gonorrhoeae NOT DETECTED REFERENCE RA NGE: NOT RNA, TMA (test DETECTED Meth odology: code = 2024567) Transcriptio n Mediated Amplification ( TMA)to detect RNA. The analytical perf ormance characteristics of thisassay, when used to test SurePat h(TM) specimens haveb een determined by [facility] [facility]. Th e modificationsha ve not been cleared or approved by the FDA. This assayhas b een validated pursu ant to the CLIA regula tions andis used for clinical purpos es. For additional information, pl ease refer tohttps://educa tion.qu estdiagnostics. com/faq /IIR145(This li nk is being provided for informational/e ducatio nal purposes on ly.) SUE (test code = Performing Lab SUE) *[facility] [address] [address] Sylvie Gresham MD, PhD [facility] Panel - CT/GC [id number] 17:37:44 Test Item Value Reference Interpretation Comments Range C. trachomatis NOT DETECTED RNA, TMA (test code = 6892341) N. gonorrhoeae NOT DETECTED REFERENCE RA NGE: NOT RNA, TMA (test DETECTED Meth odology: code = 9465771) Transcriptio n Mediated Amplification ( TMA)to detect RNA. The analytical perf ormance characteristics of thisassay, when used to test SurePat h(TM) specimens haveb een determined by [employer] [facility]. Th e modificationsha ve not been cleared or approved by the FDA. This assayhas b een validated pursu ant to the CLIA regula tions andis used for clinical purpos es. For additional information, pl ease refer tohttps://InfoGina [employer]. Motion Math/faq /ZDD757(This li nk is being provided for informational/e ducatio nal purposes on ly.) SUE (test code = Performing Lab SUE) *[facility] [address] [address] Sylvie Gresham MD, PhD [facility] Panel - CT/GC [id number] 17:37:44 Test Item Value Reference Interpretation Comments Range C. trachomatis NOT DETECTED RNA, TMA (test code = 6986852) N. gonorrhoeae NOT DETECTED REFERENCE RA NGE: NOT RNA, TMA (test DETECTED Meth odology: code = 2297874) Transcriptio n Mediated Amplification ( TMA)to detect [...] For additional information, pl ease refer tohttps://educa tion.Zerista. Motion Math/faq /YSO589(This li nk is being provided for informational/e ducatio nal purposes on ly.) SUE (test code = Performing Lab SUE) *[facility] [address] Sylvie Gresahm MD, PhD [facility]/GC [id number] 17:37:44 Test Item Value Reference Interpretation Comments Range C. trachomatis NOT DETECTED RNA, TMA (test code = 8370313) N. gonorrhoeae NOT DETECTED REFERENCE RA NGE: NOT RNA, TMA (test DETECTED Meth odology: code = 3014869) Transcriptio n Mediated Amplification ( TMA)to detect RNA. The analytical perf ormance characteristics of thisassay, when used to test SurePat h(TM) specimens haveb een determined by [employer]. Th e modificationsha ve not been cleared or approved by the FDA. This assayhas b een validated pursu ant to the CLIA regula tions andis used for clinical purpos es. For additional information, pl ease refer tohttps://educa tion.Zerista. Motion Math/faq /GYZ103(This li nk is being provided for informational/e ducatio nal purposes on ly.) SUE (test code = Performing Lab SUE) *[facility] [address] [address] Sylvie Gresham MD, PhD [facility] Center[facility]IC METABOLIC [id number] 16:40:09 Test Item Value Reference Range Interpretation [...] not appl icable for dialysis patien ts Crime Investigator Special Agent ID - BSOsmolality, [id number] 12:43:16 Test Item Value Reference Range Interpretation Comments Osmolality, Ur (test code 245 See_Comment [ Automated message] = 2695-5) The system Rysto generated this result transmitted ref erence range: 50-1,200 mOsm/kg mOsm/kg . The reference range was not used to int erpret this result as normal/abnormal . Lab Interpretation (test Normal code = 53006-0) [facility] CenterOSMOLALITY, [id number] 12:43:16 Test Item Value Reference Range Interpretation Comments OSMOLALITY URINE 245 mOsm/kg See_Comment [Automated message] ([facility]) (test code = The sy stem which 614) generated this result transmitted ref erence range: 50-1,200 mOsm/kg. The reference range was not used to int erpret this result as normal/abnormal . Sodium, random [id number] 11:48:27 Test Item Value Reference Range Interpretation Comments Sodium Urine (test 82 meq/L code = 2955-3) SUE (test code = Reference Range: No SUE) NormalsOperator ID - ADMIN [facility] CenterUrea Nitrogen, random [id number] 11:48:27 Test Item Value Reference Range Interpretation Comments Urea Nitrogen, Ur 121 mg/dL (test code = 3095-7) SUE (test code = Reference Range: No SUE) NormalsOperator ID - ADMIN [facility] [id number] 11:48:27 Test Item Value Reference Range Interpretation Comments SODIUM URINE (BEAKER) (test code = 82 meq/L 243) Reference Range: No NormalsOperator ID - ADMINUREA NITROGEN, RANDOM URINE 2022-08-10 11:48:27 Test Item Value Reference Range Interpretation Comments UREA NITROGEN URINE (BEAKER) (test 121 mg/dL code = 538) Reference Range: No NormalsOperator ID - ADMINCreatinine, random [id number] 11:48:26 Test Item Value Reference Range Interpretation Comments Creatinine, Ur 20.9 mg/dL (test code = 2161-8) SUE (test code = Reference Range: No SUE) NormalsOperator ID - ADMIN [facility] CenterCREATININE, RANDOM [id number] 11:48:26 Test Item Value Reference Range Interpretation Comments CREATININE URINE (BEAKER) (test 20.9 mg/dL code = 375) Reference Range: No NormalsOperator ID - ADMINWound culture + gram stain 2022-08-10 11:24:49 Test Item Value Reference Range Interpretation Comments Result (test code = No growth 6463-4) Gram Stain Result <1+ gram positive cocci (test code = 1123) in pairs [facility] culture + gram [id number] 11:24:49 Test Item Value Reference Range Interpretation Comments Result (test code = No growth 6463-4) Gram Stain Result <1+ gram positive cocci (test code = 1123) in pairs [facility] culture + gram [id number] 11:24:49 Test Item Value Reference Range Interpretation Comments Result (test code = No growth 6463-4) Gram Stain Result <1+ gram positive cocci (test code = 1123) in pairs [facility] culture + gram [id number] 11:24:49 Test Item Value Reference Range Interpretation Comments Result (test code = No growth 6463-4) Gram Stain Result <1+ gram positive cocci (test code = 1123) in pairs [facility] culture + gram [id number] 11:24:49 Test Item Value Reference Range Interpretation Comments Result (test code = No growth 6463-4) Gram Stain Result <1+ gram positive cocci (test code = 1123) in pairs [facility] culture + gram [id number] 11:24:49 Test Item Value Reference Range Interpretation Comments Result (test code = No growth 6463-4) Gram Stain Result <1+ gram positive cocci (test code = 1123) in pairs [facility] culture + gram [id number] 11:24:49 Test Item Value Reference Range Interpretation Comments Result (test code = No growth 6463-4) Gram Stain Result <1+ gram positive cocci (test code = 1123) in pairs [facility] culture + gram [id number] 11:24:49 Test Item Value Reference Range Interpretation Comments Result (test code = No growth 6463-4) Gram Stain Result <1+ gram positive cocci (test code = 1123) in pairs [facility] culture + gram [id number] 11:24:49 Test Item Value Reference Range Interpretation Comments Result (test code = No growth 6463-4) Gram Stain Result <1+ gram positive cocci (test code = 1123) in pairs [facility] CULTURE + GRAM [id number] 11:24:49 Test Item Value Reference Range Interpretation Comments CULTURE (BEAKER) (test No growth code = 1095) GRAM STAIN RESULT 4+ WBCs (BEAKER) (test code = 1123) GRAM STAIN RESULT <1+ gram positive cocci (BEAKER) (test code = in pairs 29830) T4, [id number] 11:12:44 Test Item Value Reference Range Interpretation Comments FREE T4 (BEAKER) (test code = 655) 1.25 ng/dL 0.70-1.48 Crime Investigator Special Agent ID - AAHAMIDOSMOLALITY, [id number] 11:11:51 Test Item Value Reference Range Interpretation Comments OSMOLALITY, SERUM (BEAKER) (test 271 mOsm/kg 275-295 L code = 615) TSH/FREE T4 IF [id number] 10:36:27 Test Item Value Reference Range Interpretation Comments THYROID STIMULATING HORMONE 10.385 uIU/mL 0.350-4.940 H (BEAKER) (test code = 772) Crime Investigator Special Agent ID - QIZLXODBCEOTLPV3575-00-80 10:30:32 Test Item Value Reference Range Interpretation Comments CORTISOL, TOTAL (BEAKER) (test 11.9 ug/dL 3.7-19.4 code = 2755) Crime Investigator Special Agent ID - AAJDCT, DRAINAGE, SOFT TISSUE FLUID [id number] 09:56:00Reason for exam:->tubo-ovarian abscess [facility] 1975 Sex: FFINAL [...] left lower quadrant fluid collection. Signed: [facility] Verified Date/Time: 08/10/2022 09:56:28 Reading Location: [address] Neuro Reading Room RADIOLOGIC GUIDANCE & INTERP/[id number] 09:56:00FINAL REPORT CT guided fluid aspiration Clinical [...] MDReport Verified Date/Time: 08/10/2022 09:56:28 Reading Location: [address] Neuro [facility]/[id number] 09:56:00FINAL REPORT CT guided fluid aspiration Clinical [...] Whiteside Verified Date/Time: 08/10/2022 09:56:28 Reading Location: [address] Neuro Reading Room [facility]/[id number] 09:56:00FINAL REPORT CT guided fluid aspiration Clinical [...] Whiteside Verified Date/Time: 08/10/2022 09:56:28 Reading Location: [address] Neuro Reading Room [facility]RAD[facility]/[id number] 09:56:00FINAL REPORT CT guided fluid aspiration Clinical [...] Whiteside Verified Date/Time: 08/10/2022 09:56:28 Reading Location: [address] Neuro Reading Room [facility]RAD[facility]/[id number] 09:56:00FINAL REPORT CT guided fluid aspiration Clinical [...] Whiteside Verified Date/Time: 08/10/2022 09:56:28 Reading Location: [address] Neuro Reading Room [facility]RAD[facility]/[id number] 09:56:00FINAL REPORT CT guided fluid aspiration Clinical [...] Whiteside Verified Date/Time: 08/10/2022 09:56:28 Reading Location: [address] Neuro Reading Room [facility]/[id number] 09:56:00FINAL REPORT CT guided fluid aspiration Clinical [...] Whiteside Verified Date/Time: 08/10/2022 09:56:28 Reading Location: [address] Neuro Reading Room [facility]RAD[facility]/[id number] 09:56:00FINAL REPORT CT guided fluid aspiration Clinical [...] MDReport Verified Date/Time: 08/10/2022 09:56:28 Reading Location: [facility] C0[facility] Neuro Reading Room [facility] campusTreadmill tolerance(Non-Nuclear Treadmill)2022-08-10 08:12:31 Protocol Name Lexiscan Time [...] PMConfirmed by Kelton Stapleton ([id number]) on 38:12:[address] CenterTread[facility] tolerance(Non- Nuclear Treadmill)2022-08-10 08:12:31Protocol Name [...] PMConfirmed by Kelton Stapleton ([id number]) on 38:12:24 [facility]Tread[facility] tolerance(Non-Nuclear Treadmill)2022-08-10 08:12:31Protocol Name Lexiscan Time In [...] by Kelton Stapleton ([id number]) on 08/10/2022 8:12:24 [facility]Treadmill tolerance(Non-Nuclear Treadmill) 2022-08-10 08:12:31Protocol Name Lexiscan Time [...] PMConfirmed by Kelton Stapleton ([id number]) on 38:12:24 [facility]Tread[facility] tolerance(Non- Nuclear Treadmill)2022-08-10 08:12:31Protocol Name Lexiscan Time [...] PMConfirmed by Kelton Stapleton ([id number]) on 38:12:24 [facility]Treadmill tolerance(Non-Nuclear Treadmill)2022-08-10 08:12:31Protocol Name Lexiscan Time In [...] by Kelton Stapleton ([id number]) on 08/10/2022 8:12:24 [facility]Tread[facility] tolerance(Non-Nuclear Treadmill) 2022-08-10 08:12:31Protocol Name Lexiscan Time [...] PMConfirmed by Kelton Stapleton ([id number]) on :12:24 [facility] campusTreadmill tolerance(Non- Nuclear Treadmill)2022-08-10 08:12:31Protocol Name Lexiscan Time [...] PMConfirmed by Kelton Stapleton ([id number]) on :12:24 [facility] campusBASIC METABOLIC [id number] 06:16:41 Test Item Value Reference Range Interpretation [...] not appl icable for dialysis patien ts Crime Investigator Special Agent ID - ADMINSpecimen slightly [id number] 06:16:41 Test Item Value Reference Range Interpretation Comments MAGNESIUM (BEAKER) 1.9 mg/dL 1.6-2.6 Specimen slightly (test code = 627) hemolyzed Crime Investigator Special Agent ID - ADMINCBC (HEMOGRAM ONLY)2022-08-10 05:54:45 Test [...] 0-0 CELLS (BEAKER) (test code = 413) [id number] 04:19:50 Test Item Value Reference Range Interpretation Comments MAGNESIUM (BEAKER) (test code = 1.3 mg/dL 1.6-2.6 L 627) Crime Investigator Special Agent ID - MMBASIC METABOLIC [id number] 04:19:50 Test Item Value Reference Range Interpretation [...] not appl icable for dialysis patien ts Crime Investigator Special Agent ID - MMSpecimen slightly ictericCBC (HEMOGRAM ONLY)2022-08-09 [...] (BEAKER) (test code = 413) BASIC METABOLIC [id number] 06:27:34 Test Item Value Reference Range Interpretation [...] not appl icable for dialysis patien ts Crime Investigator Special Agent ID - DAMIÁN WSpecimen slightly ictericB-TYPE NATRIURETIC FACTOR (BNP) 2022-08-08 05:56:50 Test Item Value Reference Range Interpretation Comments B-TYPE NATRIURETIC PEPTIDE (BEAKER) 202 pg/mL 0-100 H (test code = 700) Crime Investigator Special Agent ID - BSCBC (HEMOGRAM ONLY)2022-08-08 05:36:13 Test [...] (BEAKER) (test code = 413) BASIC METABOLIC [id number] 05:39:11 Test Item Value Reference Range Interpretation [...] not appl icable for dialysis patien ts Crime Investigator Special Agent ID - ADMINSpecimen slightly ictericCBC (HEMOGRAM ONLY)2022-08-07 [...] 0-0 (BEAKER) (test code = 413) CT, [id number] 07:32:00Unlisted Reason for Exam - Click Yes [...] Vigil Verified Date/Time: 08/06/2022 07:32:46 Reading Location: [facility] Diagnostic Imaging Reading Room - [place] [address] CT ABDOMEN/PELVIS WITH IV CONTRAST Standard [id number] 07:32:00FINAL REPORT CT abdomen and pelvis with [...] Vigil Verified Date/Time: 08/06/2022 07:32:46 Reading Location: [facility] Diagnostic Imaging Reading Room - [place] [address] [address] [facility]CT ABDOMEN/PELVIS WITH IV CONTRAST Standard [id number] 07:32:00FINAL REPORT CT abdomen and pelvis with [...] Verified Date/Time: 08/06/2022 07:32:46 Reading Loc ation: [facility] Diagnostic Imaging Reading Room - [place] [address] [address] ABDOMEN/PELVIS WITH IV CONTRAST Standard [id number] 07:32:00FINAL REPORT CT abdomen and pelvis with [...] in size from 07/30/2022. Signed: Kam Vigil MDRepssm rehab Verified Date/Time: 08/06/2022 07:32:46 Reading Loc ation: [facility] Diagnostic Imaging Reading Room - [facility] F[address] ABDOMEN/PELVIS WITH IV CONTRAST Standard [id number] 07:32:00FINAL REPORT CT abdomen and pelvis with [...] Verified Date/Time: 08/06/2022 07:32:46 Reading Loc ation: [facility] Diagnostic Imaging Reading Room - [facility] F[address] ABDOMEN/PELVIS WITH IV CONTRAST Standard [id number] 07:32:00FINAL REPORT CT abdomen and pelvis with [...] Verified Date/Time: 08/06/2022 07:32:46 Reading Loc ation: [facility] Diagnostic Imaging Reading Room - [facility] [address] ABDOMEN/PELVIS WITH IV CONTRAST Standard [id number] 07:32:00FINAL REPORT CT abdomen and pelvis with [...] Verified Date/Time: 08/06/2022 07:32:46 Reading Loc ation: [facility] Diagnostic Imaging Reading Room - [facility] F[address] ABDOMEN/PELVIS WITH IV CONTRAST Standard [id number] 07:32:00FINAL REPORT CT abdomen and pelvis with [...] Verified Date/Time: 08/06/2022 07:32:46 Reading Loc ation: [facility] Diagnostic Imaging Reading Room - [facility] F[address] ABDOMEN/PELVIS WITH IV CONTRAST Standard [id number] 07:32:00FINAL REPORT CT abdomen and pelvis with [...] Verified Date/Time: 08/06/2022 07:32:46 Reading Loc ation: [facility] Diagnostic Imaging Reading Room - [facility] F1 [address] Screen, [id number] 21:59:05 Test Item Value Reference Range Interpretation Comments Preg Test, Ur (test code = 2112-1) Negative Negative Lab Interpretation (test code = Normal 06136-0) [facility] CenterPREGNANCY SCREEN, [id number] 21:59:05 Test Item Value Reference Range Interpretation [...] CONCENTRATION Adequate (CELLAVISION)(BEAKER) (test code = 3438) Crime Investigator Special Agent ID - Salena comments: Slide comments:BASIC METABOLIC [...] not appl icable for dialysis patien ts Crime Investigator Special Agent ID - ADMINSpecimen slightly ictericPROTHROMBIN TIME/[id number] 21:25:45 Test Item Value Reference Range Interpretation [...] mechanical heart valves.CBC W/PLT COUNT & AUTO [id number] 21:20:49 Test Item Value Reference Range Interpretation [...] (BEAKER) (test code = 413) Transthoracic echo [id number] 16:18:18Ejection FractionSLEH ECHO HEARTLAB [facility] [id number] 16:18:18Ejection FractionSLEH ECHO HEARTLAB [facility]Tran[facility] echo [id number] 16:18:18Ejection FractionSLEH ECHO HEARTLAB [facility] echo result 2022-08-03 16:18:18Ejection FractionSLEH ECHO HEARTLAB [facility]Tran[facility] echo [id number] 16:18:18Ejection FractionSLEH ECHO HEARTLAB [facility] Transthoracic echo [id number] 16:18:18Ejection FractionSLEH ECHO HEARTLAB [facility] [id number] 16:18:18Ejection FractionSLEH ECHO [facility]ARTLAB [facility] [id number] 16:18:18Ejection FractionSLEH ECHO HEARTLAB [facility]Tran[facility] result 2022-08-03 16:18:18Ejection FractionSLEH ECHO HEARTLAB [facility] HospitalBASIC METABOLIC [id number] 05:26:56 Test Item Value Reference Range Interpretation [...] as accur ate as Creatinine María Elena zani in predicting glom erular filtration rate . Estimated GFR is not appl icable for dialysis patien ts Crime Investigator Special Agent ID - MMSpecimen slightly ictericCBC (HEMOGRAM ONLY)2022-08-03 [...] CONCENTRATION Decreased (CELLAVISION)(BEAKER) (test code = 3438) Crime Investigator Special Agent ID - Salena comments: Slide comments:CBC W/PLT COUNT & AUTO [id number] 14:52:12 Test Item Value Reference Range Interpretation [...] (BEAKER) (test code = 413) BASIC METABOLIC [id number] 13:40:34 Test Item Value Reference Range Interpretation [...] not appl icable for dialysis patien ts Crime Investigator Special Agent ID - ADMINSpecimen moderately ictericMYOCARD IMAGING, MULTI, PHARM, [id number] 15:12:00Unlisted Reason for Exam - Click Yes and Enter Reason Below->No[facility] : 1975 Sex: FFINAL REPORT PROCEDURE: MYOCARDIAL PERFUSION SPECT IMAGING (Rest/Stress)CPT CODE: 90601 INDICATION: Cardiac screening, high CAD risk CARDIOVASCULAR [...] prior study for comparison. Signed: Marilyn Cerna [facility] Verified Date/Time: 08/01/2022 15:12:23 NM myocardial perfusion SPECT, pharm(Lexiscan)2022-08-01 15:12:00FINAL REPORT PROCEDURE: MYOCARDIAL PERFUSION SPECT IMAGING (Rest/Stress)CPT CODE: 64139 INDICATION: Cardiac screening, high CAD risk CARDIOVASCULAR [...] no prior study for comparison. Signed: Marilyn Cernaepramirez Verified Date/Time: 08/01/2022 15:12:23 [facility] myocardial perfusion SPECT, pharm(Lexiscan) 2022-08-01 15:12:00FINAL REPORT PROCEDURE: MYOCARDIAL PERFUSION SPECT IMAGING (Rest/Stress)CPT CODE: 71193 INDICATION: Cardiac screening, high CAD risk CARDIOVASCULAR [...] Marilyn Cerna MDRepramirez Verified Date/Time: 08/01/2022 15:12:23 [facility], [facility](Lexiscan) 2022-08-01 15:12:00FINAL REPORT PROCEDURE: MYOCARDIAL PERFUSION SPECT IMAGING (Rest/Stress)CPT CODE: 82161 INDICATION: Cardiac screening, high CAD risk CARDIOVASCULAR [...] Marilyn Cerna MDReport Verified Date/Time: 08/01/2022 15:12:23 [facility] myocardial perfusion SPECT, pharm(Lexiscan) 2022-08-01 15:12:00FINAL REPORT PROCEDURE: MYOCARDIAL PERFUSION SPECT IMAGING (Rest/Stress)CPT CODE: 60120 INDICATION: Cardiac screening, high CAD risk CARDIOVASCULAR [...] Marilyn Cerna MDReport Verified Date/Time: 08/01/2022 15:12:23 [facility] myocardial perfusion SPECT, pharm(Lexiscan) 2022-08-01 15:12:00FINAL REPORT PROCEDURE: MYOCARDIAL PERFUSION SPECT IMAGING (Rest/Stress)CPT CODE: 61297 INDICATION: Cardiac screening, high CAD risk CARDIOVASCULAR [...] prior study for comparison. Signed: Marilyn Cerna [facility] Verified Date/Time: 08/01/2022 15:12:23 [facility] SPECT, pharm(Lexiscan) 2022-08-01 15:12:00FINAL REPORT PROCEDURE: MYOCARDIAL PERFUSION SPECT IMAGING (Rest/Stress)CPT CODE: 81675 INDICATION: Cardiac screening, high CAD risk CARDIOVASCULAR [...] no prior study for comparison. Signed: Marilyn Crena MDReport Verified Date/Time: 08/01/2022 15:12:23 [facility] myocardial perfusion SPECT, pharm(Lexiscan) 2022-08-01 15:12:00FINAL REPORT PROCEDURE: MYOCARDIAL PERFUSION SPECT IMAGING (Rest/Stress)CPT CODE: 85419 INDICATION: Cardiac screening, high CAD risk CARDIOVASCULAR [...] no prior study for comparison. Signed: Marilyn Cernaepramirez Verified Date/Time: 08/01/2022 15:12:23 [facility] myocardial perfusion SPECT, pharm(Lexiscan)2022-08-01 15:12:00FINAL REPORT PROCEDURE: MYOCARDIAL PERFUSION SPECT IMAGING (Rest/Stress)CPT CODE: 17804 INDICATION: Cardiac screening, high CAD risk CARDIOVASCULAR [...] Marilyn Cerna MDReport Verified Date/Time: 08/01/2022 15:12:23 [facility] HospitalHEMOGLOBIN [id number] 13:52:52 Test Item Value Reference Range Interpretation [...] 5.7- 6.4% indicates increased risk for diabetes (prediabetes)."Crime Investigator Special Agent ID - ADM (CELLAVISION MANUAL DIFF)2022-08-01 08:26:35 [...] CONCENTRATION Decreased (CELLAVISION)(BEAKER) (test code = 3438) Crime Investigator Special Agent ID - Remy Deandreo-onUser comments: Slide comments:CBC W/PLT COUNT & AUTO [id number] 08:26:34 Test Item Value Reference Range Interpretation [...] (BEAKER) (test code = 413) HCG, QUANTITATIVE, [id number] 05:48:18 Test Item Value Reference Range Interpretation Comments GONADOTROPIN, CHORIONIC (HCG) QUANT < mIU/mL 0-10 (BEAKER) (test code = 649) Non- Females: <10 mIU/mL Females: Gestation Age Reference Range(mIU/mL) 0.2-1 Week 5-50 1-2 Weeks 50-500 2-3 Weeks 100-5,000 3-4 Weeks 500-10,000 4-5 Weeks 1,000-50,000 5-6 Weeks 10,000-100,000 6-8 Weeks 15,000- 200,000 2-3 Months 10,000-100,000 Crime Investigator Special Agent ID - DBBASIC METABOLIC PANEL 2022-08-01 05:41:39 [...] not appl icable for dialysis patien ts Crime Investigator Special Agent ID - DAMIÁN WSpecimen moderately cepdmhcJGNAQBHMW5214-12-13 05:41:38 Test Item Value Reference Range Interpretation Comments MAGNESIUM (BEAKER) (test code = 1.7 mg/dL 1.6-2.6 627) Crime Investigator Special Agent ID Gisele STEEL [id number] 05:41:38 Test Item Value Reference Range Interpretation Comments PHOSPHORUS (BEAKER) (test code = 3.0 mg/dL 2.3-4.7 604) Crime Investigator Special Agent ID Gisele STEEL WPT/[id number] 05:39:59 Test Item Value Reference Range Interpretation [...] 2.5-3.5 for patients with mechanical heart valves.LIPID [id number] 22:24:08 Test Item Value Reference Range Interpretation [...] Borderline 130-159 High 160-189 Very High >=190 Crime Investigator Special Agent ID - [id number] ID - [id number] ID - [id number] slightly icteric U/S, ENDOVAGINAL (EV)2022-07-31 14:38:00Reason for exam:->concern for [facility]ENTERName: GEETHA MIN[facility] : 1975 [...] follow-up imaging with ultrasound. Signed: Shauna Duran [facility] Verified Date/Time: 07/31/2022 14:38:44 U/S, [id number] 14:38:00Reason for exam:->[facility] : 1975 Sex: FFINAL [...] MDReport Verified Date/Time: 07/31/2022 14:38:44 U/S, DUPLEX, [id number] 14:38:00 [facility] : 1975 Sex: FFINAL [...] Shauna Duran MDReport Verified Date/Time: 07/31/2022 14:38:44 US [id number] 14:38:00FINAL REPORT TECHNIQUE: Transabdominal and transvaginal grayscale [...] follow-up imaging with ultrasound. Signed: Shauna Duran [facility] Verified Date/Time: 07/31/2022 14:38:44 [facility] [id number] 14:38:00FINAL REPORT TECHNIQUE: Transabdominal and transvaginal grayscale [...] follow-up imaging with ultrasound. Signed: [facility] Duran [facility] Verified Date/Time: 07/31/2022 14:38:44 [facility]US [id number] 14:38:00FINAL REPORT TECHNIQUE: Transabdominal and transvaginal grayscale [...] Signed: Shauna Duran Verified Date/Time: 07/31/2022 14:38:44 [facility] [id number] 14:38:00FINAL REPORT TECHNIQUE: Transabdominal and transvaginal grayscale [...] Signed: Shauna Duran Verified Date/Time: 07/31/2022 14:38:44 [facility] [id number] 14:38:00FINAL REPORT TECHNIQUE: Transabdominal and transvaginal grayscale [...] imaging with ultrasound. Signed: Shauna Duran MDRepssm rehab Verified Date/Time: 07/31/2022 14:38:44 [facility] [id number] 14:38:00FINAL REPORT TECHNIQUE: Transabdominal and transvaginal grayscale [...] Shauna Duran MDReport Verified Date/Time: 07/31/2022 14:38:44 [facility] [id number] 14:38:00FINAL REPORT TECHNIQUE: Transabdominal and transvaginal grayscale [...] Signed: Shauna Duran Verified Date/Time: 07/31/2022 14:38:44 [facility] [id number] 14:38:00FINAL REPORT TECHNIQUE: Transabdominal and transvaginal grayscale [...] Shauna Duran MDRharshort Verified Date/Time: 07/31/2022 14:38:44 [facility] [id number] 14:38:00FINAL REPORT TECHNIQUE: Transabdominal and transvaginal grayscale [...] Shauna Duran MDRort Verified Date/Time: 07/31/2022 14:38:44 [facility] [id number] 14:38:00FINAL REPORT TECHNIQUE: Transabdominal and transvaginal grayscale [...] Signed: Shauna Duran Verified Date/Time: 07/31/2022 14:38:44 [facility] [id number] 14:38:00FINAL REPORT TECHNIQUE: Transabdominal and transvaginal grayscale [...] Shauna Duran MDReport Verified Date/Time: 07/31/2022 14:38:44 [facility] [id number] 14:38:00FINAL REPORT TECHNIQUE: Transabdominal and transvaginal grayscale [...] follow-up imaging with ultrasound. Signed: Shauna [facility]an [facility] Verified Date/Time: 07/31/2022 14:38:44 [facility] [id number] 14:38:00FINAL REPORT TECHNIQUE: Transabdominal and transvaginal grayscale [...] Shauna Duran MDReport Verified Date/Time: 07/31/2022 14:38:44 [facility] [id number] 14:38:00FINAL REPORT TECHNIQUE: Transabdominal and transvaginal grayscale [...] Signed: Shauna Duran Verified Date/Time: 07/31/2022 14:38:44 [facility] [id number] 14:38:00FINAL REPORT TECHNIQUE: Transabdominal and transvaginal grayscale [...] Signed: Shauna Duran Verified Date/Time: 07/31/2022 14:38:44 [facility] tyzkmr2739-35-18 14:38:00FINAL REPORT TECHNIQUE: Transabdominal and transvaginal grayscale [...] follow-up imaging with ultrasound. Signed: Shauna Duran [facility] Verified Date/Time: 07/31/2022 14:38:44 [facility] hikvtrb9424-84-29 14:38:00FINAL REPORT TECHNIQUE: Transabdominal and transvaginal grayscale [...] Shauna Duran MDReport Verified Date/Time: 07/31/2022 14:38:44 [facility] Ueclqycxvyi9321-53-78 14:38:00FINAL REPORT TECHNIQUE: Transabdominal and transvaginal grayscale [...] considercontinued follow-up imaging with ultrasound. Signed: Kelly Shauna MDRharshort Verified Date/Time: 07/31/2022 14:38:44 [facility] aewogk1414-59-68 14:38:00FINAL REPORT TECHNIQUE: Transabdominal and transvaginal grayscale [...] Shauna Duran MDReport Verified Date/Time: 07/31/2022 14:38:44 [facility] ebkwmgl2686-22-72 14:38:00FINAL REPORT TECHNIQUE: Transabdominal and transvaginal grayscale [...] Shauna Duran MDReport Verified Date/Time: 07/31/2022 14:38:44 [facility] Qcesplosvds2149-65-57 14:38:00FINAL REPORT TECHNIQUE: Transabdominal and transvaginal grayscale [...] Signed: Shauna Duran Verified Date/Time: 07/31/2022 14:38:44 [facility] pdtqmq2876-12-03 14:38:00FINAL REPORT TECHNIQUE: Transabdominal and transvaginal grayscale [...] Signed: Shauna Duran Verified Date/Time: 07/31/2022 14:38:44 [facility] jwybxcv4497-15-27 14:38:00FINAL REPORT TECHNIQUE: Transabdominal and transvaginal grayscale [...] follow-up imaging with ultrasound. Signed: [facility]an [facility] Verified Date/Time: 07/31/2022 14:38:44 [facility] Pmjtjsblzwe4852-31-03 14:38:00FINAL REPORT TECHNIQUE: Transabdominal and transvaginal grayscale [...] Shauna Duran MDReport Verified Date/Time: 07/31/2022 14:38:44 [facility] W/PLT COUNT & AUTO [id number] 03:57:39 Test Item Value Reference Range Interpretation [...] H PERCENT (BEAKER) (test code = 2801) [id number] 03:56:52 Test Item Value Reference Range Interpretation Comments MAGNESIUM (BEAKER) (test code = 1.5 mg/dL 1.5-3.0 627) Crime Investigator Special Agent ID - [id number] ID - [id number] ID - [id number] ID - [id number] BASIC METABOLIC [id number] 03:55:31 Test Item Value Reference Range Interpretation [...] not appl icable for dialysis patien ts Crime Investigator Special Agent ID - [id number] ID - [id number] ID - [id number] ID - ZPQI97Jncavaqg ID - [id number] ID - [id number] ID - [id number] ID - [id number] ID - [id number] slightly anbkdfhLOKQRSFQWV7245-81-86 03:54:07 Test Item Value Reference Range Interpretation Comments PHOSPHORUS (BEAKER) (test code = 4.0 mg/dL 2.5-4.5 604) Crime Investigator Special Agent ID - [id number] 18:37:08 Test Item Value Reference Range Interpretation Comments MAGNESIUM (BEAKER) (test code = 1.6 mg/dL 1.5-3.0 627) Crime Investigator Special Agent ID - [id number] ID - [id number] ID - [id number] ID - [id number], CHEST, 1 VIEW, NON [id number] 16:51:00Reason for exam:->SOB, wheezingShould this be performed at the bedside?->Yes [facility] 1975 Sex: FFINAL [...] Carrera Verified Date/Time: 07/30/2022 16:51:52 Reading Location[facility] Radiology Reading Room BASI METABOLIC PANEL [...] not appl icable for dialysis patien ts Crime Investigator Special Agent ID - [id number] ID - [id number] ID - [id number] ID - AHHNQ325Ahbejyzp ID - [id number] ID - [id number] ID - [id number] ID - [id number] ID - [id number] ID - [id number] ID - [id number] ID - [id number] TIME/INR 2022-07-30 16:00:01 Test Item Value Reference [...] mechanical heart valves.CBC W/PLT COUNT & AUTO [id number] 15:52:31 Test Item Value Reference Range Interpretation [...] PERCENT (BEAKER) (test code = 2801) TISSUE [id number] 12:09:00Surgical Pathology Report Case: [id number] Authorizing Provider: Trudy James MD Collected: 02/17/2019 1126 Ordering Location: [address] Received: 02/17/2019 1147 Service Pathologist: Angela Beahc MD Specimen: Gallbladder A. GALLBLADDER, CHOLECYSTECTOMY: - CHRONIC CHOLECYSTITIS WITHCHOLELITHIASIS. Signing Pathologist Direct Phone Line: [phone] signed by Angela Beach MD on 02/19/2019 at 12:09 [id number] renal mass Gallbladder Received in formalin labeled [...] trabeculated. The wall measures 0.2 cm thick. Offc Spec sections are submitted in A1-A2, with the inked proximalmargin is A1. PA/ew Performed.[facility], Department of Pathology, [address] [place] [address], [facility]uzxsSaint [facility], [facility] of Pathology, [address] [place] [address], IwrmotSaint Francis Medical Center, Department of Pathology, [address] [place] [address], KJA W/PLT COUNT & AUTO [id number] 07:03:00 Test Item Value Reference Range Interpretation [...] (BEAKER) (test code = 2801) BASIC METABOLIC [id number] 06:57:00 Test Item Value Reference Range Interpretation [...] APPLICABLE FOR DIALYSIS PATIEN TS. HEPATIC FUNCTION [id number] 06:57:00 Test Item Value Reference Range Interpretation [...] (test code = 347) hemolyzed HEPATIC FUNCTION [id number] 06:57:00 Test Item Value Reference Range Interpretation [...] 72 U/L 6-55 H 347) BASIC METABOLIC [id number] 06:57:00 Test Item Value Reference Range Interpretation [...] PATIEN TS. CBC W/PLT COUNT & AUTO [id number] 06:28:00 Test Item Value Reference Range Interpretation [...] PERCENT (BEAKER) (test code = 2801) SCREEN, [id number] 07:28:00 Test Item Value Reference Range Interpretation Comments TEST URINE (BEAKER) (test Negative code = 583) [id number] 07:28:00 Test Item Value Reference Range Interpretation Comments MAGNESIUM (BEAKER) 2.0 mg/dL 1.6-2.6 Specimen moderately (test code = 627) hemolyzed [id number] 07:28:00 Test Item Value Reference Range Interpretation Comments PHOSPHORUS (BEAKER) 4.0 mg/dL 2.3-4.7 Specimen moderately (test code = 604) hemolyzed BASIC METABOLIC [id number] 07:28:00 Test Item Value Reference Range Interpretation [...] APPLICABLE FOR DIALYSIS PATIEN TS. HEPATIC FUNCTION [id number] 07:28:00 Test Item Value Reference Range Interpretation [...] Specimen moderately (test code = 347) hemolyzed [id number] 07:28:00 Test Item Value Reference Range Interpretation Comments LIPASE (BEAKER) (test code = 749) 31 U/L 8-78 CBC W/PLT COUNT & AUTO [id number] 07:10:00 Test Item Value Reference Range Interpretation [...] (BEAKER) (test code = 2801) U/S, ABDOMINAL, [id number] 23:50:00Abdomen limited area? Add comment if clarification [...] Date/Time: 02/15/2019 23:50:53 URINALYSIS W/ REFLEX URINE [id number] 22:43:00 Test Item Value Reference Range Interpretation [...] SOURCE(BEAKER) (test code = 2795) HEPATIC FUNCTION [id number] 17:03:00 Test Item Value Reference Range Interpretation [...] Specimen slightly (test code = 347) hemolyzed [id number] 16:00:00 Test Item Value Reference Range Interpretation Comments MAGNESIUM (BEAKER) 2.1 mg/dL 1.6-2.6 Specimen slightly (test code = 627) hemolyzed BASIC METABOLIC [id number] 16:00:00 Test Item Value Reference Range Interpretation [...] hemolyz ed (test code = 364) PROTHROMBIN TIME/[id number] 15:31:00 Test Item Value Reference Range Interpretation [...] is 2.5-3.5 for patients wiht mechanical heart valves.[id number] 15:31:00 Test Item Value Reference Range Interpretation Comments PARTIAL THROMBOPLASTIN TIME 31.4 seconds 22.5-36.0 (BEAKER) (test code = 760) CBC W/PLT COUNT & AUTO [id number] 15:14:00 Test Item Value Reference Range Interpretation [...] Consult Notes Date/Time Note Provider Source 2022-11-28 4402-21-59D24:23:09Associated Patrick Wallace OT [facility] 10:23:09 Order(s): CONSULT ADULT OCCUPATIONAL THERAPY OT GENERAL EVALUATIONConsult received via Bookmycab, EMR reviewed and evaluation completed 11/28/22. Patient referred to occupational therapy for evaluation and treatment. Patient is 47 year old female with chest pain, NSTEMI. 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 66525-1Qlencqo ugtnMY8009-47-27U49:15:28Consult noteTXT1.2.840.668173.1.13.104.2.7.2 .319315|[id number] for patient wkpb35855-6Ypvwfkx huleKB947379221Gbyhtg C Lawas [address][id number] ONBATDRLZLQCATEAYRSGSK0623-84-05E37: 15:281.2.840.705785.1.72.3.15|1.2.84 0.550251.1.13.104.2.7.2.727879_18983 47994 2022-11-28 5475-35-85I54:45:00Associated Savanna Juarez PT [facility] 09:45:00 Order(s): CONSULT ADULT PHYSICAL THERAPY Patient [...] setting of methamphetamine use), CAD c/b unspecified [place] (02/2022 per [facility]where), HFpEF, hypertension, hyperlipidemia, COPD, GERD, and seizure disorder (not on medications) presenting as a transfer from [facility] for NSTEMI. Troponin peaked at 1.34 [...] setting of methamphetamine use), CAD c/b unspecified [place] (02/2022 per CareEverywhere), HFpEF, hypertension, hyperlipidemia, COPD, GERD, and seizure disorder (not on medications) presenting as a transfer from [facility] for NSTEMI. Troponin peaked at 1.34 [...] a SS house, and sisterDME: Wheel Chair u1Rmike level of Mobility: requires assistance with transfers, requires assistance with bed mobility, uses w/c primarily, family/caregiver. Per patient, her sister puts her on the wheelchair, pushes her on the wheelchair since 2022Suspected ischemic or hemorraghic stroke:Yes, Pre-Stroke Modified Piatt Score: 4 - Moderately severe disability; unable to walk without assistance and unable to attend to own bodily needs without assistance Subjective: "My sister pushes me around"Patient/Family Goals: To go homePatient/Family verbalizes understanding of condition: Yes PAIN: denies pain before and after sessionCOMMUNICATIONPrimary Language: Tongan Able to Verbalize needs: Yes Vision:good; no [...] Time in Minutes: 33 minSavanna Juarez PT, DPTUnBrooke Army Medical CenterRehabilitation Services A physical therapy evaluation [...] clinical presentation with unstable and unpredictable characteristics 97840-8Dgvgkun vojhCY9616-68-08X00:53:18Consult noteTXT1.2.840.886558.1.13.104.2.7.2 .226470|3284197510IDRnersyhup for patient vgiq68936-9Bulhtlf ztxeLY704465801Utmgkv Pallera [address] GnvgCrcqympgaIisuxozelZWEB4991429150 PECVAKJUSGDCBPOUQBUYKP6143-72-24T70: 53:181.2.840.700752.1.72.3.15|1.2.84 0.968213.1.13.104.2.7.2.727879_18983 22533 2022-11-25 8033-77-31G20:49:18Associated PN-NEUROLOGY [facility] 18:49:18 Order(s): CONSULT NEUROLOGY STROKE SERVICE [...] mL/hr at 11/25/22 1829 600 Units/hr at 11/25/221828 ipratropium-albuteroL (DUONEB) 0.5 [...] with Dr. Rivera, Neurology Faculty Stroke pager: [phone] Shahnaz Borges, MDPGY-4, NeurologyPager: [phone] signed by Romaine Rivera MD at 11/26/2022 [...] reported) and/or communicating results to the patient/family/caregiver. 45147-6Tepasiw lxpmMG2337387Wknugxfg, Hashem1.2.840.147196.1.13.104.2.7.2. 488066IugeigzlGiynrgEH8710-56-37T29: 21:11Consult noteTXT1.2.840.331198.1.13.104.2.7.2 .896705|5889901919ZYDelchpssr for patient zmng34648-7Jwmswtv armaFNJQ-YERKANPRAFU-GOXJOJSEYZIWFID MB - Health[address] [employer] Jo[id number] EDPHBCTWFDZHESBHTUPCUM3928-17-54Z40: 21:111.2.840.340214.1.72.3.15|1.2.84 0.896485.1.13.104.2.7.2.727879_18956 08889 2022-11-25 3286-41-72N16:00:00Associated Analy Bonner [facility] 18:00:00 Order(s): CONSULT PS PASTORAL [place] CARE Supervisor [employer] visited with patient in response to consult for pastoral care and support. Patient was awake and acknowledged licensed customs broker's presence. Pt was alone in room. The Pt said she was of Scientology nicole. The PT. Expressed to the Supervisor [employer] of some fear,about her upcomming surgery that going to be done on her heart.Pt asked the Supervisor [employer] to pray for her and for God to give her peace. The Supervisor [employer] provided spiritual support through prayer of healing, peace and comfort. Supervisor [employer] provided pastoral presence, and validated feelings. Pastoral care will continue to follow up as needed. Rev.Analy Ferro [facility] Department of Pastoral CarePh: [phone]: [phone] 69259-2Xuocduf hrpnQF3925-07-41F81:31:33Consult noteTXT1.2.840.497918.1.13.104.2.7.2 .201042|9999144960SEXleegeqib for patient afuz18482-9Yzvbivp kpesCK294838432Egypaqj M [address][id number] JEIUJZRGRAISLYLQRBCAKL1308-23-36F39: 31:331.2.840.698368.1.72.3.15|1.2.84 0.463790.1.13.104.2.7.2.727879_18956 59864 2022-11-25 2975-56-09M33:53:13Associated PED-PEDIATRICS [facility] 10:53:13 Order(s): CONSULT ALLERGY ALLERGY & IMMUNOLOGY CONSULT NOTEDATE OF SERVICE: 11/25/22REASON FOR CONSULT: Aspirin allergyHPI: Patient is a 47 year old female with a past medical history significant for recent hemorrhagic stroke (10/29/22; 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 - Plan also explained to via estonian translatorPatient seen with Dr. Magaña. Thank you [...] see the fellow's note for additional details. 36358-0Ihnlypk wvupTB0576761Orlb, Sarah1.2.840.563788.1.13.104.2.7.2.8 75100QvpkHuzpyRA1311-13-44T25:58:19C onsult noteTXT1.2.840.182979.1.13.104.2.7.2 .253987|8483576779JLUksbayubx for patient dwbw53781-9Stmugad cxwaSTYXV-NQQUCLOFSOKYJ-JBWKZHXPAIZV [address] [id number] XMWCCEOTIBOYRVQHPCLCZE2494-80-22H14: 58:191.2.840.045714.1.72.3.15|1.2.84 0.676523.1.13.104.2.7.2.727879_18954 05320 2022-11-24 5992-43-96H19:08:12Associated NS-NEUROLOGICAL [facility] 16:08:12 Order(s): CONSULT SURGERY NEUROSURGERY NEUROSURGERY CONSULTATION HISTORY AND PHYSICALAttending Neurosurgeon: Dr. 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 [...] 100% 100% Weight: Height: Awake, alert, oriented i3BATJB bilaterally at 3mmEOMI bilaterallySlight left lower facial [...] setting of methamphetamine use), CAD c/b unspecified [place] (02/2022 per [facility]where), HFpEF, hypertension, hyperlipidemia, COPD, GERD, and seizure disorder (not on medications) presenting as a transfer from [facility] for NSTEMI currently on heparin drip. NSGY consulted for recs regarding heparin in light of recent hemorrhagic stroke. Pt at neurologic baseline s/p stroke.Recommendations:No neurosurgical interventionPlease consult neurology for management and recommendations of anticoagulation w/ hx of hemorrhagic strokeWill sign off at this timeChflory White MDNeurosurgery ServiceFor inquiries please page [id number] signed by Burton Howell MD at 11/25/2022 12:23 PM CDTAssociated attestation - Burton Howell MD - 11/25/2022 12:23 PM CDT I personally evaluated and am primary in decision making on, Geetha Minor, and I agree with the documentation by Sinan White MD,neurosurgery resident.71449-7Kdbzzoz gsnlFY2688083Bwpdbw, Rudy P1.2.840.768749.1.13.104.2.7.2.80476 1YfeuiqArudISI5965-67-88W56:23:14Con sult noteTXT1.2.840.922801.1.13.104.2.7.2 .163174|4706768024CRYmlgbnojs for patient vdin49540-3Ygifckk noteLNNS-NEUROLOGICAL SURGERYNS-NEUROLOGICAL SURGERY[address] StreetIljbKejgivmggBrigakcluQUDW8158926268 APGPMFPXGEJOIZIUYJYPZG7427-51-42Q80: 23:141.2.840.201449.1.72.3.15|1.2.84 0.055584.1.13.104.2.7.2.727879_18954 47803 History and Physical Notes Date/Time Note Provider Source 2022-11-24 11:33:08 0952-05-64V03:33:08Formatting of this note [facility] is different from the original.Images from the original note were not included.CCU History and Physical Date of Service: 11/24/2022 15:48 ICU day: Intubation Day: CHIEF COMPLAINT: Chest painHistory of Present IllnessGeetha Minor is a 47 year old female with a past medical history significant for recent hemorrhagic stroke (10/29/22; 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 On my interview, patient [...] for amphetamines during her recent hospitalization.Workup at [facility] showed ST depression and TWI in [...] 454 ms QTC Calculation(Bazett) 460 ms P Willard 19 degrees R Willard 64 degrees T Willard 254 degrees Normal sinus rhythm Possible Left [...] at OSH prior to transfer to [facility] NICU, extubated on 10/30, required nicardipine gtt [...] develop- Sedation/Analgesia: NoneRespCOPDHx tobacco abuse- DuoNebs prn- E5FHKluxvxzlqltvexOKPGXOBdago painReported CAD HFpEFBradycardiaHTNHLDPatient presenting as a transfer [...] evaluation of volume status- CXR- Will need [facility] this admission- Continue Plavix (allergic to ASA)- [...] prophylaxis: heparinLines/Catheters:Peripheral IV 11/24/22 Right Antecubital Inserted CONTROL SYSTEMS DESIGNER (Active) Number of days: 0 Dispo: CCUPrognosis: [...] ordering referrals and/or communicating with other health nursing care partner (when not separately reported), documenting clinical information in the electronic or other health record, and care coordination (not separately reported).- hemodynamically stable- Neurosurgery consult for systemic AC / DAPT in the future, given h/o ICH- allergy consult for ASA desensitizationJOSE Cierra GONZALEZ MD, [facility], [facility]USssistant ProfessorCardiology, Advanced Heart Failure, LVAD & Transplant ServiceDate of service: 838215354-3Sgindyd and physical hloqSB5137874Ydysoalpjr-Lqxdfmac, Jose C1.2.840.193277.1.13.104.2.7.2.469786Eszie bzmse-ZmhaylzvSwtzZNA6719-15-10T15:30:41Hi story and physical noteTXT1.2.840.264503.1.13.104.2.7.2.52743 9|[id number] for patient cqfk82419-3Ueexxdp and physical noteLNUT59 [address] StreetPlecItsrzsoheKuiaoremvNTHK5959762164DIZWKL RXHGFSAFIWTTKDYW4595-54-32Q28:30:411.2.840 .292586.1.72.3.15|1.2.840.149732.1.13.104. 2.7.2.727879_[id number] Notes Date/Time Note Provider Source 2022-11-29 13:58:46 0985-85-72Z58:58:46Formatting Desi hernandez [employer] DEVELOPMENT INTERN [facility] of this note is different from the original.2nd call no contact. 73908-5Wdoybmcgm encounter LmlxXA7010-99-14T13:58:57Teleph one encounter NoteTXT1.2.840.636067.1.13.104. 2.7.2.419168|9466363394WUKdnqjj ble for patient azyh56210-1IvspDO816129242Zicgb kellie Sotelo [address]TXTX[address] 06539DNBMWTCNMUVIISLQJOHIIP9260 -09-14T13:58:571.2.840.521253.1 .72.3.15|1.2.840.438819.1.13.10 4.2.7.2.727879_1899775951 2022-11-29 12:58:12 4500-91-66Q96:58:12Formatting [facility] of this note might be different from the original.TRANSITIONAL CARE MANAGEMENT ASSESSMENT11/29/2022 Geetha MinorAhmvbrkn030187ESpvpvmh Martinez is a 47 year old /White female was admitted on 11/24/[address] She was discharged on 11/28/22 with discharge disposition of HR- Routine Discharge.Admitting Physician: Ryne Yoder FDischarge Diagnosis: NSTEMI (non-ST elevated myocardial infarction) [I21.4]No contact.No linked episodesTCM Abv-aiyg-ol-face outreach documentation: Future Appointments: 42257-6Xmsoptzfy encounter JqxdCU8188-33-56S90:58:44Teleph one encounter NoteTXT1.2.840.364200.1.13.104. 2.7.2.908095|7930463828DAQnixhk ble for patient diqm86108-1PhtpAWQOFILUHH[address] By[address] StreetTXTX[address] 15469XUFEFSHNWYIGJQTVPJAJJS7855 -09-14T12:58:441.2.840.744084.1 .72.3.15|1.2.840.259619.1.13.10 4.2.7.2.727879_1899716552 2022-11-28 16:51:33 8072-11-79W58:51:33Formatting Sylvia Abad [facility] of this note might be different [...] of new skin breakdownOutcome: Adequate for discharge 12901-4Bsea of care cimrWB5208-02-44Q34:51:41Plan of care noteTXT1.2.840.470053.1.13.104. 2.7.2.856758|7681209239ZBDpsibr ble for patient viub94424-4JtqxNN652685577Hkswa feroz Iniguez RNUT[address] SvikYesvymaoxSzhjhffndHFLY02428 61696JLUREVKXMRYQHLAEIWSJEJ2897 -09-13T16:51:411.2.840.143974.1 .72.3.15|1.2.840.676356.1.13.10 4.2.7.2.727879_[id number] 2022-11-28 01:14:27 9315-44-19Z10:14:27Formatting Trang mendes [facility] of this note might be [...] of new skin breakdownOutcome: Progressing as expected 31082-5Pzig of care dwalFW2002-99-16H52:14:30Plan of care noteTXT1.2.840.286006.1.13.104. 2.7.2.549836|3298240775FUHtuhgn ble for patient iduv81786-9TlcmBS626637282Vcnut anders Morton RNUTMBEASTERN NEW MEXICO MEDICAL [facility] - [address] JzqnZdewrjajyVllvtejnlOMYQ33639 09887SBQWYAYPRHUHNYZOPJEODJ8228 -09-13T01:14:301.2.840.324782.1 .72.3.15|1.2.840.910890.1.13.10 4.2.7.2.727879_[id number] 2022-11-27 06:31:47 3349-11-42D52:31:47Formatting Laisha Bartlett RN [facility] of this note might be [...] of new skin breakdownOutcome: Progressing as expected 64819-0Iwog of care wwdmQR4940-30-52M87:31:49Plan of care noteTXT1.2.840.105675.1.13.104. 2.7.2.660009|6787356991DMSpkfll ble for patient ybsb49200-3NuqsVK633294748Xfjj N. Au RNUTMBUTMB - [address] WwvdCabqordewUmqwmyhgsEXOL35742 93806ORVCIKKVKWCMHSKTQAAHQI5435 -09-12T06:31:491.2.840.366195.1 .72.3.15|1.2.840.686388.1.13.10 4.2.7.2.727879_1896843962 2022-11-26 21:20:10 7601-42-54C28:20:10Formatting Angelia Cardenas RN [facility] of this note might be [...] Reduction in pain sensationOutcome: Progressing as expected 40764-5Bnub of care xsulVB9342-71-55V87:20:13Plan of care noteTXT1.2.840.937019.1.13.104. 2.7.2.959223|3922067878HGRwfioi [facility] for patient wrav56987-6AajkOA710859850Qjsva candice Cardenas RNUT56 [address] StreetGalvestonTXTX[address] 07169ZYRUEAEUOWSYOKUFVNEDRU9397 -09-11T21:20:131.2.840.550215.1 .72.3.15|1.2.840.155386.1.13.10 4.2.7.2.727879_[id number] 2022-11-26 17:36:46 6580-50-82Z07:36:46Formatting Sushma Velazquez RN [facility] of this note might be [...] Reduction in pain sensationOutcome: Progressing as expected 87705-1Wgpb of care oksoIF3034-01-64S30:36:51Plan of care noteTXT1.2.840.174757.1.13.104. 2.7.2.495469|[id number] ble for patient [id number] a D Cantu [address] 23656VXXSEVEVHQMKJQBUBBPMNW6104 -09-11T17:36:511.2.840.067692.1 .72.3.15|1.2.840.927364.1.13.10 4.2.7.2.727879_[id number] 2022-11-25 23:27:36 2456-91-92F18:27:36Formatting Chuyita quigleyAtrium Health Lincoln of this note might be different RN from the original.Problem: Falls, Risk ofGoal: Absence of fallsOutcome: Progressing as expected Problem: PainGoal: Control of pain at or below patient's documented comfort goalOutcome: Progressing as expected [id number] of care dndhSM9527-88-14W42:27:40Plan of care [id number]. 2.7.2.140781|[id number] ble for patient [id number] ia D Rodriguez [address]TXTX[address] [id number] -09-10T23:27:401.2.840.368201.1 .72.3.15|1.2.840.154060.1.13.10 [id number] 2022-11-25 17:36:51 2046-96-96R88:36:51Formatting Angelia causey RN [facility] of this note might be [...] of medication managementOutcome: Not progressing as expected 32629-2Rige of care mphzXC9034-30-48W21:36:56Plan of care noteTXT1.2.840.462067.1.13.104. 2.7.2.414553|[id number] ble for patient [id number] candice Carrion [address] [id number] -09-10T17:36:561.2.840.875916.1 .72.3.15|1.2.840.652142.1.13.10 4.2.7.2.727879_[id number] 2022-07-30 20:59:40 [id number]:59:40 YAIMA GOMEZ [facility]DELARIOFACILITY: [facility] #: [id number] Room: [address] [place] [address] #: [id number] : 1975DATE OF ADMISSION: 3DATE OF CONSULTATION: 07/30/2022REQUESTING PHYSICIAN:EXAM PROCTOR: Yaima Gomez, MDConsultation is with lower quadrant pain, possible tubo-ovarianabscesses.HISTORY OF PRESENT ILLNESS: 47-year-old female with history ofpain, left lower quadrant that began three days ago, was at [facility] and transferred here this morning. [...] this. Leukocytosis. Agree withcurrent plan, antibiotics, and SIMULATION EDUCATOR. We will follow with you.PopDF/MODLDD: 07/30/2022 17:17:10DT: 07/30/2022 20:59:40Job #: [id number] signed by: YAIMA GOMEZ at 2022-07-30 17:17:10.301OYNkimqarglgsy3054- 05-15T20:59:371407-98-98N81:29: [id number], TRYDEPOVSWHSQECDBMOIT1979-84-58 T11:29:34
--- NOTE | 2023-02-18 10:19 | EDPHYS ---
Physician Documentation [facility] Name: Geetha Khan Age: 47 yrs Sex: Female : 1975 Arrival Date: 02/18/2023 Time: 09:43 Bed IW4 Private MD: ED Physician Hoa Eddy HPI: 02/18 10:09 This 47 yrs old Female presents to ER via Wheelchair with complaints of Chest Pain. sp3 10:09 47-year-old female with extensive past medical history including prior NM, CVA, COPD, sp3 hypertension who presents again today for chest pain. Patient has had 3 visits in the last 3 days and multiple visits to the emergency department over the last 6 months for recurrent symptoms that she states are not getting better. EMS was filed reports for EMS abuse and overutilization. Patient has not had any positive pathology here with us. There is no new findings or changes from her prior presentations. She still does not have a primary care physician that she sees regularly. She denies any shortness of breath, fever, trauma, fall, back pain, abdominal pain, vomiting, diarrhea, syncope or any other signs or symptoms on ROS at this time.. 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 CVA (Thyroid problem); Myocardial infarction; Seizures; Seizures; Thyroid problem; ROS: 10:10 Constitutional: Negative for fever, chills, and weight loss, Eyes: Negative for injury, sp3 pain, redness, and discharge, ENT: Negative for injury, pain, and discharge, Neck: Negative for injury, pain, and swelling, Respiratory: Negative for shortness of breath, cough, wheezing, and pleuritic chest pain, Abdomen/GI: Negative for abdominal pain, nausea, vomiting, diarrhea, and constipation, Back: Negative for injury and pain, MS/Extremity: Negative for injury and deformity, Skin: Negative for injury, rash, and discoloration, Neuro: Negative for headache, weakness, numbness, tingling, and seizure, Psych: Negative for depression, anxiety, suicide ideation, homicidal ideation, and hallucinations, Allergy/Immunology: Negative for hives, rash, and allergies, Endocrine: Negative for neck swelling, polydipsia, polyuria, polyphagia, and marked weight changes, 10:10 All other systems are negative, Exam: 10:11 Constitutional: This is a well developed, well nourished patient who is awake, alert, sp3 and in no acute distress. Head/Face: Normocephalic, atraumatic. Eyes: Pupils equal round and reactive to light, extra-ocular motions intact. Lids and lashes normal. Conjunctiva and sclera are non-icteric and not injected. Cornea within normal limits. Periorbital areas with no swelling, redness, or edema. ENT: Nares patent. No nasal discharge, no septal abnormalities noted. External auditory canals are clear. Oropharynx with no redness, swelling, or masses, exudates, or evidence of obstruction, uvula midline. Mucous membranes moist. Neck: Trachea midline, no thyromegaly or masses palpated, and no cervical lymphadenopathy. Supple, full range of motion without nuchal rigidity, or vertebral point tenderness. No Meningismus. Chest/axilla: Normal chest wall appearance and motion. Nontender with no deformity. No lesions are appreciated. Cardiovascular: Regular rate and rhythm with a normal S1 and S2. No gallops, murmurs, or rubs. Normal PMI, no JVD. No pulse deficits. Respiratory: Lungs have equal breath sounds bilaterally, clear to auscultation and percussion. No rales, rhonchi or wheezes noted. No increased work of breathing, no retractions or nasal flaring. Abdomen/GI: Soft, non-tender, with normal bowel sounds. No distension or tympany. No guarding or rebound. No evidence of tenderness throughout. Back: No spinal tenderness. No costovertebral tenderness. Full range of motion. Skin: Warm, dry with normal turgor. Normal color with no rashes, no lesions, and no evidence of cellulitis. MS/ Extremity: Pulses equal, no cyanosis. Neurovascular intact. Full, normal range of motion. 10:17 ECG was reviewed by the Attending Physician. EKG represents normal sinus rhythm at 75 sp3 bpm with LVH and repolarization syndrome with nonspecific diffuse ST/T changes without evidence of acute ischemia and unchanged from prior EKG dated 02-16-23. Vital Signs: 10:07 BP 139 / 99; Pulse 80; Resp 16; Temp 97.5; Pulse Ox 100% on R/A; iw MDM: 10:00 Patient medically screened. sp3 10:11 Data reviewed: vital signs, nurses notes, old medical records, EKG. ED course: sp3 47-year-old female with recurrent chest pain. I am not highly clinically suspicious for acute coronary syndrome, aortic pathology including dissection and/or aneurysm, pneumonia, sepsis, shock, mediastinitis, trauma, esophagitis, or any other critical pathology at this time. Patient has a high probability of malingering and I have discussed these findings with the patient. I explained to her that we will see any true emergency however malingering will not be tolerated in the emergency department. She verbalized understanding. We will obtain EKG and if no change from prior, we will safely discharge her home.. 02/18 09:59 Order name: EKG; Complete Time: 10:00 sp3 02/18 09:59 Order name: EKG - Nurse/Tech; Complete Time: 10:18 sp3 Administered Medications: No medications were administered Disposition Summary: 02/18/23 10:18 Discharge Ordered Notes: Location: Home sp3 Condition: Stable sp3 Diagnosis - Chest pain, unspecified sp3 Followup: sp3 - With: Private Physician - When: Upon discharge from the Emergency Department - Reason: Continuance of care Discharge Instructions: - Discharge Summary Sheet sp3 - Nonspecific Chest Pain, Adult, Vlon-kg-Axvq sp3 Forms: - Medication Reconciliation Form sp3 - Thank You Letter sp3 - Antibiotic Education sp3 - Prescription Opioid Use sp3 - Patient Portal Instructions sp3 - Leadership Thank You Letter sp3 Signatures: Dispatcher [employer] Iqra Antony, YANETH RN Hoa Nichols MD MD sp3
--- NOTE | 2023-02-18 10:19 | ER ---
Nurse's Notes [facility] Name: Geetha Khan Age: 47 yrs Sex: Female : 1975 Arrival Date: 02/18/2023 Time: 09:43 Bed IW4 Private MD: Diagnosis: Chest pain, unspecified Presentation: 02/18 10:05 Chief complaint: Patient states: woke up with pain in left shoulder , hurts when she iw cough and when she turns her head , when I take a deep breath my chest hurts. Coronavirus screen: At this time, the client does not indicate any symptoms associated with coronavirus-19. Ebola Screen: Patient negative for fever greater than or equal to 101.5 degrees Fahrenheit, and additional compatible Ebola Virus Disease symptoms Patient denies exposure to infectious person. Patient denies travel to an Ebola-affected area in the 21 days before illness onset. No symptoms or risks identified at this time. Initial Sepsis Screen: Does the patient meet any 2 criteria? No. Patient's initial sepsis screen is negative. Does the patient have a suspected source of infection? No. Patient's initial sepsis screen is negative. Risk Assessment: Do you want to hurt yourself or someone else? Patient reports no desire to harm self or others. Onset of symptoms was February 18, 2023. 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 im 09:50 Kishor Hoyos DO is Attending Physician. ms3 09:51 Attending Physician role handed off by Kishor Hoyos DO sp3 09:51 Hoa Eddy MD is Attending Physician. sp3 10:07 Triage completed. iw 10:08 Arm band placed on. iw 10:47 Iqra Issa, RN is Primary Nurse. iw Administered Medications: No medications were administered Outcome: 10:18 Discharge ordered by sp3 10:47 Patient left the ED. iw Signatures: Iqra Issa RN RN iw Kishor Hoyos DO DO ms3 Hoa Eddy MD MD sp3 Verna Jhaveri im
[2023-02-18 11:04] VITALS: BP 139/99; TEMP 97.5; O2SAT 100
--- NOTE | 2023-02-19 13:31 | EKG ---
Test Date: 2023-02-18 Test Time: 10:13:22 Double Bottom Driver: SHAY MEASUREMENT RESULTS: Intervals: Rate: 81 WY: 178 QRSD: 92 QT: 386 QTc: 448 [place]: P: 45 WY: 178 QRS: -8 T: 161 INTERPRETIVE STATEMENTS: Normal sinus rhythm Possible Left atrial enlargement Left ventricular hypertrophy with repolarization abnormality Abnormal ECG Compared to ECG 02/16/2023 10:51:34 No significant changes Electronically Signed On 02-19-23 13:27:17 STAFF PHYSICAL THERAPY ASSISTANT by Josse Oslon
== END 2023-02-18 10:47 | disposition home or self-care (01) ==
LOC: ER 09:43
DX: R07.9 Chest pain, unspecified (principal)
CPT/HCPCS: 93005; 99281

== ENCOUNTER 2023-02-20 13:50 | Emergency (ER) | payer SELFPAY ==
--- NOTE | 2023-02-20 15:07 | RAD REPORT ---
EXAM DESCRIPTION: RAD - Thoracic Spine Ap/Lat - 02/20/2023 2:49 pm CLINICAL HISTORY: PAIN Radiculopathy COMPARISON: No comparisons FINDINGS: Mild diffuse osteopenia is seen. No acute compression fracture. Subtle dextroscoliosis of the thoracic spine. IMPRESSION: No acute abnormality detected.
--- NOTE | 2023-02-20 15:07 | RAD REPORT ---
EXAM DESCRIPTION: RAD - Shoulder Right 2 View - 02/20/2023 2:49 pm CLINICAL HISTORY: PAIN COMPARISON: Shoulder Right 2 View dated 02/17/2023 FINDINGS: No evidence of acute fracture or dislocation.
--- NOTE | 2023-02-20 15:13 | ER ---
Nurse's Notes [facility] Name: Geetha Khan Age: 47 yrs Sex: Female : 1975 Arrival Date: 02/20/2023 Time: 13:50 Bed 12 Private MD: Diagnosis: Fall from bed, initial encounter;Pain in thoracic spine;Pain in right shoulder;Contusion of right forearm Presentation: 02/20 13:47 Chief complaint: EMS states: FALL OUT OF BED TODAY. HURT RIGHT SHOULDER AND RIGHT ARM. db BRUISE TO RIGHT FOREARM. HIT HARDWOOD FLOOR. HX OF CVA AND LEFT SIDED PARALYSIS. Coronavirus screen: Client denies travel out of the [place] in the last 14 days. At this time, the client does not indicate any symptoms associated with coronavirus-19. Ebola Screen: Patient negative for fever greater than or equal to 101.5 degrees Fahrenheit, and additional compatible Ebola Virus Disease symptoms Patient denies exposure to infectious person. Patient denies travel to an Ebola-affected area in the 21 days before illness onset. No symptoms or risks identified at this time. Initial Sepsis Screen: Does the patient meet any 2 criteria? No. Patient's initial sepsis screen is negative. Does the patient have a suspected source of infection? No. Patient's initial sepsis screen is negative. Risk Assessment: Do you want to hurt yourself or someone else? Patient reports no desire to harm self or others. Onset of symptoms was February 20, 2023. 13:47 Method Of Arrival: EMS: [facility] db 13:47 Acuity: CORRINA 3 db Triage Assessment: 14:00 General: Appears in no apparent distress. comfortable, Behavior is calm, cooperative. db Pain: Complains of pain in right arm. Historical: - Allergies: 13:57 Aspirin; db 13:57 CRANBERRY; db 13:57 FISH PRODUCT DERIVATIVES; db 13:57 GRAPEFRUIT; db 13:57 mushrooms; db - Home Meds: 13:57 Metoprolol Tartrate Oral [Active]; lisinopril Oral [Active]; db 13:57 amlodipine oral [Active]; atorvastatin oral [Active]; Dexamethasone Oral [Active]; db - PMHx: 13:57 Cerebrovascular accident; COPD; Hypertension; Left arm paralysis and left leg weakness db from previous CVA (Thyroid problem); Myocardial infarction; Seizures; Thyroid problem; Asthma; - Immunization history:: Adult Immunizations unknown. - Social history:: Smoking status: Patient reports the use of cigarette tobacco products, smokes one-half pack cigarettes per day. Screenin:52 [facility] ED Fall Risk Assessment (Adult) History of falling in the last 3 months, cp4 including since admission Yes- single mechanical fall (1 pt) Confusion or Disorientation No (0 pts) Intoxicated or Sedated No (0 pts) Impaired Gait Yes (1 pt) Mobility Assist Device Used Yes (1 pt) Altered Elimination Yes (1 pt) Score/Fall Risk Level 3 or more points = High Risk Oriented to surroundings, Maintained a safe environment, Educated pt \T\ family on fall prevention, incl call for assistance when getting out of bed, Provided non-skid footwear, Hourly rounding (assess needs \T\ fall precautionary measures) done. Abuse screen: Denies threats or abuse. Nutritional screening: No deficits noted. Tuberculosis screening: No symptoms or risk factors identified. Assessment: 14:52 General: Appears in no apparent distress. Behavior is calm, cooperative, appropriate cp4 for age. Vital Signs: 13:47 BP 147 / 96; Pulse 65; Resp 18; Temp 98.5(O); Pulse Ox 100% on R/A; Weight 65.77 kg; db Height 5 ft. 2 in. ; 15:26 BP 142 / 96; Pulse 72; Resp 18; Pulse Ox 98% ; cp4 13:47 Body Mass Index 26.52 (65.77 kg, 157.48 cm) db ED Course: 13:51 Patient arrived in ED. kb 13:51 Kathy Kerns FNP-C is [facility]. kb 13:51 Gene Medrano MD is Attending Physician. kb 13:56 Triage completed. db 14:00 Arm band placed on Patient placed. db 14:49 Shoulder Right (2 View) XRAY In Process Unspecified. EDMS 14:50 XRAY Thoracic Spine (Ap/lat) In Process Unspecified. EDMS 14:52 Yasmeen Vasquez is Primary Nurse. cp4 14:52 Fall risk band placed. Bed in low position. Call light in reach. Side rails up X 1. cp4 14:52 No provider procedures requiring assistance completed. Patient did not have IV access cp4 during this emergency room visit. 15:26 Provided Education on: fall. cp4 Administered Medications: 15:25 Drug: Acetaminophen PO 650 mg PO once Route: PO; cp4 15:25 Follow up: Response: No adverse reaction cp4 Medication: 14:52 VIS not applicable for this client. cp4 Outcome: 15:12 Discharge ordered by MD. lozano 15: Discharged to home via wheelchair, cp4 15: Condition: stable 15: Discharge instructions given to patient, Instructed on discharge instructions, follow up and referral plans. Demonstrated understanding of instructions, follow-up care, 15:45 Patient left the ED. cp4 Signatures: Dispatcher [employer] EDMS Kathy Kerns, TREASURY REPRESENTATIVE-C TREASURY REPRESENTATIVE-Yeimy Mckeon RN RN Yasmeen Myers cp4
--- NOTE | 2023-02-20 15:13 | EDPHYS ---
Physician Documentation [facility] Name: Geetha Khan Age: 47 yrs Sex: Female : 1975 Arrival Date: 02/20/2023 Time: 13:50 Bed 12 Private MD: ED Physician Gene Medrano HPI: 02/20 14:47 This 47 yrs old Female presents to ER via EMS with complaints of Arm Injury. kb 14:48 Pt is a 47 year old female who presents to right shoulder and upper back pain after kb falling out of bed this morning. . Historical: - Allergies: 13:57 Aspirin; db 13:57 CRANBERRY; db 13:57 FISH PRODUCT DERIVATIVES; db 13:57 GRAPEFRUIT; db 13:57 mushrooms; db - Home Meds: 13:57 Metoprolol Tartrate Oral [Active]; lisinopril Oral [Active]; db 13:57 amlodipine oral [Active]; atorvastatin oral [Active]; Dexamethasone Oral [Active]; db - PMHx: 13:57 Cerebrovascular accident; COPD; Hypertension; Left arm paralysis and left leg weakness db from previous CVA (Thyroid problem); Myocardial infarction; Seizures; Thyroid problem; Asthma; - Immunization history:: Adult Immunizations unknown. - Social history:: Smoking status: Patient reports the use of cigarette tobacco products, smokes one-half pack cigarettes per day. ROS: 14:45 Constitutional: Negative for fever, chills, and weight loss, kb 14:45 Back: Positive for pain at rest, pain with movement, of the right scapular area, right subscapular area and thoracic area, 14:45 MS/extremity: Positive for pain, of the posterior aspect of right shoulder, 14:45 All other systems are negative, Exam: 14:45 Constitutional: This is a well developed, well nourished patient who is awake, alert, kb and in no acute distress. Head/Face: Normocephalic, atraumatic. ENT: Moist Mucous membranes Respiratory: Respirations even and unlabored. No increased work of breathing. Talking in full sentences Abdomen/GI: Soft, non-tender. No distention Skin: Warm, dry with normal turgor. Normal color. Neuro: Awake and alert, GCS 15, oriented to person, place, time, and situation. . 14:45 Back: pain, that is moderate, of the right scapular area, right subscapular area and thoracic area, 14:45 Musculoskeletal/extremity: Extremities: grossly normal except: noted in the posterior aspect of right shoulder: pain, tenderness, noted in the palmar aspect of right forearm: contusion, ROM: intact in all extremities, Circulation is intact in all extremities. Sensation intact. Vital Signs: 13:47 BP 147 / 96; Pulse 65; Resp 18; Temp 98.5(O); Pulse Ox 100% on R/A; Weight 65.77 kg; db Height 5 ft. 2 in. ; 15:26 BP 142 / 96; Pulse 72; Resp 18; Pulse Ox 98% ; cp4 13:47 Body Mass Index 26.52 (65.77 kg, 157.48 cm) db MDM: 13:51 Patient medically screened. kb 14:47 Differential diagnosis: dislocation, closed fracture, contusion. Data reviewed: vital kb signs, nurses notes. Historians other than the Patient: EMS: [facility]. 15:12 Counseling: I had a detailed discussion with the patient and/or guardian regarding the kb historical points, exam findings, and any diagnostic results supporting the discharge/admit diagnosis, radiology results, the need for outpatient follow up, a family practitioner, to return to the emergency department if symptoms worsen or persist or if there are any questions or concerns that arise at home. 02/20 13:51 Order name: Shoulder Right (2 View) XRAY; Complete Time: 15:11 kb 02/20 13:51 Order name: XRAY Thoracic Spine (Ap/lat); Complete Time: 15:11 kb Administered Medications: 15:25 Drug: Acetaminophen PO 650 mg PO once Route: PO; cp4 15:25 Follow up: Response: No adverse reaction cp4 Disposition: 16:52 Co-signature as Attending Physician, Gene Medrano MD I reviewed the patient's care rn provided by the Advanced Practice Provider and agree with the diagnosis and treatment plan. Disposition Summary: 02/20/23 15:12 Discharge Ordered Notes: Location: Home kb Condition: Stable kb Diagnosis - Fall from bed, initial encounter kb - Pain in thoracic spine kb - Pain in right shoulder kb - Contusion of right forearm kb Followup: kb - With: Emergency Department - When: As needed - Reason: Worsening of condition Followup: kb - With: Private Physician - When: 2 - 3 days - Reason: Recheck today's complaints, Continuance of care, Re-evaluation by your physician Discharge Instructions: - Discharge Summary Sheet kb - Musculoskeletal Pain kb - Shoulder Pain, Fata-ch-Ctjn kb Forms: - Medication Reconciliation Form kb - Thank You Letter kb - Antibiotic Education kb - Prescription Opioid Use kb - Patient Portal Instructions kb - Leadership Thank You Letter kb Signatures: Dispatcher [employer] EDMS Kathy Kerns, LC-C INSPECTOR WATCH TRAIN-Gene Ward MD MD rn Benton, Danielle, RN RN db Potter, Christina cp4 Corrections: (The following items were deleted from the chart) 14:23 14:13 Shoulder Right 2 View ordered. EDMS EDMS 14:23 14:13 Thoracic Spine Ap/Lat ordered. EDMS EDMS
[2023-02-20] MEDS ORDERED: ACETAMINOPHEN 325 MG TABLET ONE (15:36)
[2023-02-20 18:50] VITALS: BP 142/96; O2SAT 98
== END 2023-02-20 15:45 | disposition home or self-care (01) ==
LOC: ER 13:50
DX: M54.6 Pain in thoracic spine (principal); M25.511 Pain in right shoulder; S50.11XA Contusion of right forearm, initial encounter; W06.XXXA Fall from bed, initial encounter
CPT/HCPCS: 72070; 99283

== ENCOUNTER 2023-02-27 18:05 | Observation (INO) | payer SELFPAY ==
[2023-02-27] MEDS ORDERED: NA CHLORIDE 0.9% 1,000 ML ONE (18:43)
[2023-02-27] MEDS ORDERED: ASPIRIN 81 MG CHEWABLE TABLET ONE (18:43)
[2023-02-27 18:52] LABS: Absolute Lymphocytes (CBC) 1.6 K/uL (0.7-4.9); Hematocrit 29.2 % (36.0-45.0); Lymphocytes % 29.9 % (15.3-44.8); MCV 91.9 fL (80-100); MPV 7.1 fL (7.6-11.3); Platelets 202 thou/uL (152-406); RBC Red Blood Cell Count 3.18 M/uL (3.86-4.86)
[2023-02-27 18:55] LABS: Protime INR 0.99
--- NOTE | 2023-02-27 19:23 | RAD REPORT ---
EXAM DESCRIPTION: RAD - Chest Single View - 02/27/2023 7:14 pm CLINICAL HISTORY: CHEST PAIN Chest pain. COMPARISON: Chest Single View dated 02/16/2023; Chest Single View dated 02/13/2023; Chest Single View dated 02/06/2023; Chest Single View dated 02/03/2023 FINDINGS: Portable technique limits examination quality. The lungs are grossly clear. The heart is mildly enlarged in size. No displaced fractures. IMPRESSION: No acute intrathoracic process suspected.
--- NOTE | 2023-02-27 19:36 | ER ---
Nurse's Notes [facility] Name: Geetha Khan Age: 47 yrs Sex: Female : 1975 Arrival Date: 02/27/2023 Time: 18:05 Bed 16 Private MD: Diagnosis: Chest pain, unspecified;Essential (primary) hypertension Presentation: 02/27 18:30 Chief complaint: Patient states: PATIENT STATES CALLED EMS DUE TO LEFT SHOULDER PAIN db FROM FALLING OUT OF BED 2 WEEKS AGO. PAIN RADIATES TO CHEST. RIGHT ARM FEELS NUMB TODAY. 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 Coronavirus screen: Vaccine status: Patient reports being unvaccinated. Client denies travel out of the [place] in the last 14 days. At this time, the client does not indicate any symptoms associated with coronavirus-19. Ebola Screen: Patient negative for fever greater than or equal to 101.5 degrees Fahrenheit, and additional compatible Ebola Virus Disease symptoms Patient denies exposure to infectious person. Patient denies travel to an Ebola-affected area in the 21 days before illness onset. No symptoms or risks identified at this time. Initial Sepsis Screen: Does the patient meet any 2 criteria? No. Patient's initial sepsis screen is negative. Does the patient have a suspected source of infection? No. Patient's initial sepsis screen is negative. Risk Assessment: Do you want to hurt yourself or someone else? Patient reports no desire to harm self or others. Onset of symptoms was February 27, 2023. 18:30 Method Of Arrival: EMS db 18:30 Acuity: CORRINA 2 db Triage Assessment: 18:30 General: Appears in no apparent distress. Behavior is calm, cooperative. Pain: db Complains of pain in chest and left arm, LEFT SHOULDER. Neuro: Level of Consciousness is awake, alert, obeys commands, Oriented to person, place, time, situation. Cardiovascular: Reports chest pain. Respiratory: Airway is patent Respiratory effort is even, unlabored, Respiratory pattern is regular, symmetrical. : No deficits noted. No signs and/or symptoms were reported regarding the genitourinary system. 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 - Social history:: Smoking status: Patient reports the use of cigarette tobacco products, smokes one-half pack cigarettes per day. - Family history:: not pertinent. Screenin:44 [facility] ED Fall Risk Assessment (Adult) History of falling in the last 3 months, ha1 including since admission No falls in past 3 months (0 pts) Confusion or Disorientation No (0 pts) Intoxicated or Sedated No (0 pts) Impaired Gait Yes (1 pt) Mobility Assist Device Used Yes (1 pt) Altered Elimination No (0 pt) Score/Fall Risk Level 3 or more points = High Risk Oriented to surroundings, Maintained a safe environment, Educated pt \T\ family on fall prevention, incl call for assistance when getting out of bed, Hourly rounding (assess needs \T\ fall precautionary measures) done. Abuse screen: Denies threats or abuse. Denies injuries from another. Nutritional screening: No deficits noted. Tuberculosis screening: No symptoms or risk factors identified. Assessment: 18:35 Reassessment: Patient appears in no apparent distress at this time. Patient and/or db family updated on plan of care and expected duration. Pain level reassessed. Patient is alert, oriented x 3, equal unlabored respirations, skin warm/dry/pink. PATIENT INCONTINENT OF STOOL. CLEANED AND CHANGED X 2 NURSING STAFF. NOTED SCRATCHES TO LEFT BUTTOCK. Pain: Complains of pain in left arm Pain radiates to chest. GI:. 19:20 General: Appears comfortable, Behavior is calm, cooperative. Pain: Complains of pain in ha1 chest and left arm Pain currently is 8 out of 10 on a pain scale. Neuro: Level of Consciousness is awake, alert, obeys commands, Oriented to person, place, time, situation. Neuro: Reports weakness in left side weakness from previous TIA. Cardiovascular: Capillary refill < 3 seconds Patient's skin is warm and dry. Cardiovascular: Reports chest pain, Heart tones S1 S2 present Capillary refill < 3 seconds Patient's skin is warm and dry. Rhythm is sinus rhythm. Respiratory: Airway is patent Respiratory effort is even, unlabored, Respiratory pattern is regular, symmetrical. GI: No signs and/or symptoms were reported involving the gastrointestinal system. Abdomen is round non-distended. 19:20 Pain: Pain began suddenly. ha1 20:40 Reassessment: Patient and/or family updated on plan of care and expected duration. Pain ha1 level reassessed. Patient is alert, oriented x 3, equal unlabored respirations, skin warm/dry/pink. 21:43 Reassessment: Patient and/or family updated on plan of care and expected duration. Pain ha1 level reassessed. Patient is alert, oriented x 3, equal unlabored respirations, skin warm/dry/pink. Vital Signs: 18:30 BP 135 / 81; Pulse 71; Resp 18; Temp 97.9(O); Pulse Ox 98% ; Weight 65.77 kg; Height 5 db ft. 2 in. ; Pain 10/10; 19:20 BP 132 / 81; Pulse 69; Resp 17 S; Pulse Ox 100% on R/A; ha1 20:20 BP 137 / 82; Pulse 67; Resp 16 S; Pulse Ox 96% on R/A; ha1 20:40 BP 149 / 90; Pulse 64; Resp 17 S; Pulse Ox 95% on R/A; ha1 21:43 BP 127 / 77; Pulse 86; Resp 15 S; Pulse Ox 97% on R/A; ha1 18:30 Body Mass Index 26.52 (65.77 kg, 157.48 cm) db 18:30 Pain Scale: Adult db NIH Stroke Scale Scores: 19:28 NIHSS Score: 0 [place] ED Course: 18:08 Patient arrived in ED. im 18:17 Michael Grimm MD is Attending Physician. [place] 18:25 Yeimy Martel, YANETH is Primary Nurse. db 18:30 Arm band placed on Patient placed in an exam room. db 19:00 Patient has correct armband on for positive identification. Placed in gown. Bed in low ha1 position. Call light in reach. Side rails up X2. 19:00 Client placed on continuous cardiac and pulse oximetry monitoring. NIBP monitoring ha1 applied. 19:15 XRAY Chest (1 view) In Process Unspecified. EDMS 19:17 Triage completed. db 19:34 Ermias Kitchen is Hospitalizing Provider. [facility] 21:17 Troponin High Sensitivity Sent. 3 21:45 Provided Education on: need for admit . ha1 21:45 Patient maintains SpO2 saturation greater than 95% on room air. ha1 02/28 02:34 No provider procedures requiring assistance completed. Patient admitted, IV remains in ha1 place. Administered Medications: 02/27 19:03 Not Given (Patient Refused): aspirinchewable tablet 162 mg PO once db 19:03 Drug: NS 0.9% IV 1000 ml IV at 125 ml/hr continuous Route: IV; Rate: 125 ml/hr; Site: db right antecubital; 21:47 Follow up: Response: No adverse reaction; IV Status: Infusion continued ha1 20:40 Drug: Ondansetron IVP 4 mg IVP once; over 2 minutes Route: IVP; Site: right wrist; ha1 21:00 Follow up: Response: No adverse reaction ha1 20:42 Drug: morphine IVP or IV 4 mg IVP once over 4 mins Route: IVP; Infused Over: 4 mins; ha1 Site: right wrist; 21:00 Follow up: Response: No adverse reaction; Pain is decreased; RASS: Alert and Calm (0) ha1 Medication: 21:45 VIS not applicable for this client. ha1 Outcome: 19:35 Decision to Hospitalize by Provider. [facility] 02/28 02:34 Admitted to Med/surg accompanied by tech, room 232, with chart, [facility] Condition: stable Discharge instructions given to patient, Instructed on the need for admit, Demonstrated understanding of instructions, 03:04 Patient left the ED. ha1 NIH Stroke Scale - NIH Stroke Score Date: 02/27/2023 Time: 19:28 Total Score = 0 10. Dysarthria (speech clarity - read or repeat words) - 0(Normal) 11. Extinction and Inattention (visual/tactile/auditory/spatial/personal) - 0(No abnormality) 1a. Level of Consciousness (LOC) - 0(Alert) 1b. Level of Consciousness (LOC) (Month \T\ Age) - 0(Both) 1c. LOC Commands (Open \T\ Closes Eyes/Dairy Science Teacher) - 0(Both) 2. Best Gaze (Lateral Gaze Paresis) - 0(Normal) 3. Visual Field Loss - 0(No visual loss) 4. Facial Palsy - 0(Normal) 5a. Left Arm: Motor (10-second hold) - 0(No drift) 5b. Right Arm: Motor (10-second hold) - 0(No drift) 6a. Left Leg: Motor (5-second hold - always test supine) - 0(No drift) 6b. Right Leg: Motor (5-second hold - always test supine) - 0(No drift) 7. Limb Ataxia (finger/nose \T\ heel/kimble - test with eyes open) - 0(Absent) 8. Sensory Loss (pinprick arms/legs/face) - 0(Normal) 9. Best Language: Aphasia (description/naming/reading) - 0(No aphasia) Initials: juan [place]go Signatures: Dispatcher [employer] EDMichael Salas MD MD cha Ayala, Heidy, RN RN ha1 Yeimy Martel RN RN Verna Arias Coral [id number] Corrections: (The following items were deleted from the chart) 02/27 19:19 19:17 Immunization history: Adult Immunizations unknown, Client reports having db NOT received the Covid vaccine. sean 19:19 19:17 Social history: Smoking status: Patient reports the use of cigarette db tobacco products, smokes one-half pack cigarettes per day, db
--- NOTE | 2023-02-27 19:36 | EDPHYS ---
Physician Documentation [facility] Name: Geetha Khan Age: 47 yrs Sex: Female : 1975 Arrival Date: 02/27/2023 Time: 18:05 Bed 16 Private MD: ED Physician Michael Grimm HPI: 02/27 19:26 This 47 yrs old Female presents to ER via EMS with complaints of Chest Pain. juan [place]go 19:26 The patient or guardian reports chest pain that is located primarily in the substernal juan [place]go area. Onset: today. The pain does not radiate. Associated signs and symptoms: The patient has no apparent associated signs or symptoms. The chest pain is described as a heaviness, a pressure. Modifying factors: The symptoms are alleviated by nothing. the symptoms are aggravated by nothing. Severity of pain: At its worst the pain was moderate in the emergency department the pain is unchanged. The patient has experienced similar episodes in the past, multiple times. 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 - Social history:: Smoking status: Patient reports the use of cigarette tobacco products, smokes one-half pack cigarettes per day. - Family history:: not pertinent. ROS: 19:28 Constitutional: Negative for fever, chills, and weight loss, Eyes: Negative for injury, [place] pain, redness, and discharge, ENT: Negative for injury, pain, and discharge, Neck: Negative for injury, pain, and swelling, Respiratory: Negative for shortness of breath, cough, wheezing, and pleuritic chest pain, Abdomen/GI: Negative for abdominal pain, nausea, vomiting, diarrhea, and constipation, Back: Negative for injury and pain, : Negative for injury, bleeding, discharge, and swelling, MS/Extremity: Negative for injury and deformity, Skin: Negative for injury, rash, and discoloration, Neuro: Negative for headache, weakness, numbness, tingling, and seizure, Psych: Negative for depression, anxiety, suicide ideation, homicidal ideation, and hallucinations, Allergy/Immunology: Negative for hives, rash, and allergies, Endocrine: Negative for neck swelling, polydipsia, polyuria, polyphagia, and marked weight changes, Hematologic/Lymphatic: Negative for swollen nodes, abnormal bleeding, and unusual bruising, 19:28 Cardiovascular: Positive for chest pain, of the chest, 19:28 Respiratory: Negative for cough, shortness of breath, Exam: 19:28 Constitutional: This is a well developed, well nourished patient who is awake, alert, juan [place]go and in no acute distress. Head/Face: Normocephalic, atraumatic. Eyes: Pupils equal round and reactive to light, extra-ocular motions intact. Lids and lashes normal. Conjunctiva and sclera are non-icteric and not injected. Cornea within normal limits. Periorbital areas with no swelling, redness, or edema. ENT: Nares patent. No nasal discharge, no septal abnormalities noted. Tympanic membranes are normal and external auditory canals are clear. Oropharynx with no redness, swelling, or masses, exudates, or evidence of obstruction, uvula midline. Mucous membranes moist. Neck: Trachea midline, no thyromegaly or masses palpated, and no cervical lymphadenopathy. Supple, full range of motion without nuchal rigidity, or vertebral point tenderness. No Meningismus. Chest/axilla: Normal chest wall appearance and motion. Nontender with no deformity. No lesions are appreciated. Cardiovascular: Regular rate and rhythm with a normal S1 and S2. No gallops, murmurs, or rubs. Normal PMI, no JVD. No pulse deficits. Respiratory: Lungs have equal breath sounds bilaterally, clear to auscultation and percussion. No rales, rhonchi or wheezes noted. No increased work of breathing, no retractions or nasal flaring. Abdomen/GI: Soft, non-tender, with normal bowel sounds. No distension or tympany. No guarding or rebound. No evidence of tenderness throughout. Back: No spinal tenderness. No costovertebral tenderness. Full range of motion. Skin: Warm, dry with normal turgor. Normal color with no rashes, no lesions, and no evidence of cellulitis. MS/ Extremity: Pulses equal, no cyanosis. Neurovascular intact. Full, normal range of motion. Neuro: Awake and alert, GCS 15, oriented to person, place, time, and situation. Cranial nerves II-XII grossly intact. Motor strength 5/5 in all extremities. Sensory grossly intact. Cerebellar exam normal. Normal gait. Psych: Awake, alert, with orientation to person, place and time. Behavior, mood, and affect are within normal limits. 19:28 ECG was reviewed by the Attending Physician. 19:28 Neuro: Orientation: is normal, appropriate for stated age, no acute changes, Mentation: is normal, appropriate for stated age, no acute changes, Memory: is normal, appropriate for stated age, no acute changes, Cranial nerves: grossly normal, is grossly normal based on the patient's age, no acute changes, Cerebellar function: is grossly normal, Motor: LEFT HEMIPARESIS, Sensation: is normal, no obvious gross deficits, appropriate no acute changes, Gait: not tested. Babinski testing is normal, seizure activity, is not displayed by the patient, Vital Signs: 18:30 BP 135 / 81; Pulse 71; Resp 18; Temp 97.9(O); Pulse Ox 98% ; Weight 65.77 kg; Height 5 db ft. 2 in. ; Pain 10/10; 19:20 BP 132 / 81; Pulse 69; Resp 17 S; Pulse Ox 100% on R/A; ha1 20:20 BP 137 / 82; Pulse 67; Resp 16 S; Pulse Ox 96% on R/A; ha1 20:40 BP 149 / 90; Pulse 64; Resp 17 S; Pulse Ox 95% on R/A; ha1 21:43 BP 127 / 77; Pulse 86; Resp 15 S; Pulse Ox 97% on R/A; ha1 18:30 Body Mass Index 26.52 (65.77 kg, 157.48 cm) db 18:30 Pain Scale: Adult db NIH Stroke Scale Scores: 19:28 NIHSS Score: 0 juan [place]go MDM: 18:17 Patient medically screened. juan diego 18:33 Patient medically screened. juan diego 19:30 Differential diagnosis: abnormal EKG, acute myocardial infarction, acute pericarditis, juan [place]go anxiety, chest wall pain, hiatal hernia, pancreatitis, pleurisy, stable angina, unstable angina. HEART Score: History: Slightly Suspicious (0), ECG: Non specific repolarization disturbance / LBTB / PM (1), Age: > 45 and < 65 years (1), Risk Factors: > or = 3 Risk factors for atherosclerotic disease (2), [Hypertension] [+ Family HX] Troponin: < or = 1 x Normal Limit (0). The patient was not given aspirin in the Emergency Department. Not indicated due to patient's past medical history. YEVGENIY Risk Score: 1 - Recent [<24hrs] Severe Angina, TOTAL SCORE = 1. Data reviewed: vital signs, nurses notes, EMS record, lab test result(s), EKG, radiologic studies, plain films. Consideration of Admission/Observation Patient was admitted/placed on observation. Escalation of care including admission/observation considered. I considered the following discharge prescriptions or medication management in the emergency department Medications were administered in the Emergency Department. See MAR. Independent interpretation of the following test(s) in the Emergency Department EKG: See my EKG interpretation above. Test considered but Not performed: CT: NO CT CHEST RO PE. Historians other than the Patient: EMS: WELL INFORMED , DW HOME SITUATION. PT WELL INFORMED. Care significantly affected by the following chronic conditions: Hypertension, ASTHMA, CVA, LEFT HEMIPARESIS. 02/27 18:20 Order name: Basic Metabolic Panel; Complete Time: 20:28 [facility] 02/27 18:20 Order name: CBC with Diff; Complete Time: 19:15 [facility] 02/27 18:20 Order name: LFT's; Complete Time: 20:28 [facility] 02/27 18:20 Order name: Magnesium; Complete Time: 20:28 [facility] 02/27 18:20 Order name: NT PRO-BNP; Complete Time: 20:28 [facility] 02/27 18:20 Order name: PT-INR; Complete Time: 19:15 [facility] 02/27 18:20 Order name: Troponin HS; Complete Time: 20:28 [facility] 02/27 18:20 Order name: Lipase; Complete Time: 20:28 [facility] 02/27 18:20 Order name: Urinalysis w/ reflexes [facility] 02/27 18:20 Order name: UDS [facility] 02/27 18:20 Order name: PREGU [facility] 02/27 20:08 Order name: Basic Metabolic Panel [facility] 02/27 20:08 Order name: Basic Metabolic Panel [facility] 02/27 20:08 Order name: Lipid Profile [facility] 02/27 20:08 Order name: Lipid Profile [facility] 02/27 20:08 Order name: Troponin High Sensitivity [facility] 02/27 20:08 Order name: Troponin High Sensitivity [facility] 02/27 20:08 Order name: Troponin High Sensitivity [facility] 02/27 20:08 Order name: Troponin High Sensitivity [facility] 02/27 21:09 Order name: Troponin High Sensitivity ha 02/27 22:06 Order name: Troponin High Sensitivity [facility] 02/27 18:20 Order name: XRAY Chest (1 view); Complete Time: 19:26 [facility] 02/27 20:09 Order name: Echo with Doppler [facility] 02/27 18:20 Order name: EKG; Complete Time: 18:21 [facility] 02/27 18:20 Order name: Cardiac monitoring; Complete Time: 19:21 [facility] 02/27 18:20 Order name: EKG - Nurse/Tech; Complete Time: 19:17 [facility] 02/27 18:20 Order name: IV Saline Lock; Complete Time: 19:21 [facility] 02/27 18:20 Order name: Labs collected and sent; Complete Time: 19:21 [facility] 02/27 18:20 Order name: O2 Per Protocol; Complete Time: 19:21 [facility] 02/27 18:20 Order name: O2 Sat Monitoring; Complete Time: 19:21 [facility] EC:28 Rate is 69 beats/min. Rhythm is regular. QRS [place] is Normal. [place] interval is normal. QRS [place] interval is normal. QT interval is normal. No Q waves. T waves are Normal. No ST changes noted. Clinical impression: Abnormal EKG without significant change and No evidence of ischemia. Interpreted by me. Reviewed by me. Administered Medications: 19:03 Not Given (Patient Refused): aspirinchewable tablet 162 mg PO once db 19:03 Drug: NS 0.9% IV 1000 ml IV at 125 ml/hr continuous Route: IV; Rate: 125 ml/hr; Site: db right antecubital; 21:47 Follow up: Response: No adverse reaction; IV Status: Infusion continued ha1 20:40 Drug: Ondansetron IVP 4 mg IVP once; over 2 minutes Route: IVP; Site: right wrist; ha1 21:00 Follow up: Response: No adverse reaction ha1 20:42 Drug: morphine IVP or IV 4 mg IVP once over 4 mins Route: IVP; Infused Over: 4 mins; ha1 Site: right wrist; 21:00 Follow up: Response: No adverse reaction; Pain is decreased; RASS: Alert and Calm (0) ha1 Disposition Summary: 02/27/23 19:35 Hospitalization Ordered Notes: Hospitalization Status: Observation juan diego Provider: Ermias Kitchen cha Condition: Fair juan diego Problem: new juan diego Symptoms: have improved juan diego Bed/Room Type: Standard juan [place]go Location: Telemetry/MedSurg (observation)(02/28/23 01:37) jr Room Assignment: 232(02/28/23 01:37) [facility] Diagnosis - Chest pain, unspecified juan diego - Essential (primary) hypertension juan diego Forms: - Medication Reconciliation Form juan diego - SBAR form juan diego - Leadership Thank You Letter juan diego NIH Stroke Scale - NIH Stroke Score Date: 02/27/2023 Time: 19:28 Total Score = 0 10. Dysarthria (speech clarity - read or repeat words) - 0(Normal) 11. Extinction and Inattention (visual/tactile/auditory/spatial/personal) - 0(No abnormality) 1a. Level of Consciousness (LOC) - 0(Alert) 1b. Level of Consciousness (LOC) (Month \T\ Age) - 0(Both) 1c. LOC Commands (Open \T\ Closes Eyes/Drier Transfer Car Operator) - 0(Both) 2. Best Gaze (Lateral Gaze Paresis) - 0(Normal) 3. Visual Field Loss - 0(No visual loss) 4. Facial Palsy - 0(Normal) 5a. Left Arm: Motor (10-second hold) - 0(No drift) 5b. Right Arm: Motor (10-second hold) - 0(No drift) 6a. Left Leg: Motor (5-second hold - always test supine) - 0(No drift) 6b. Right Leg: Motor (5-second hold - always test supine) - 0(No drift) 7. Limb Ataxia (finger/nose \T\ heel/kimble - test with eyes open) - 0(Absent) 8. Sensory Loss (pinprick arms/legs/face) - 0(Normal) 9. Best Language: Aphasia (description/naming/reading) - 0(No aphasia) Initials: [place]go Signatures: Dispatcher [employer] Dhara Martinez RN RN kl Anderson, Corey, MD MD cha Ayala, Aydee, RN RN ha1 Yeimy Maretl RN RN Susanne Villalpando [id number] Corrections: (The following items were deleted from the chart) 19:17 Immunization history: Adult Immunizations unknown, Client reports having db NOT received the Covid vaccine. db 19:17 Social history: Smoking status: Patient reports the use of cigarette db tobacco products, smokes one-half pack cigarettes per day, db 19:35 Telemetry/MedSurg (observation) [facility] 19:35 [facility] 02/28 01:37 02/27 21:28 [facility] ER [facility] kl [id number] 02/28 01:37 02/27 21:28 [facility]- kl [id number]
[2023-02-27 19:51] LABS: Potassium 3.6 mEq/L (3.5-5.1)
[2023-02-27 19:53] LABS: Bilirubin Direct 0.2 mg/dL (0-0.2); Protein, Total 6.6 g/dL (6.4-8.2)
[2023-02-27 19:54] LABS: Albumin 3.7 g/dL (3.4-5.0); Magnesium 1.7; Troponin High Sensitivity 48.8 (<58.9)
[2023-02-27] MEDS ORDERED: ONDANSETRON 4 MG/2 ML VIAL IV PRN (20:02)
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
[2023-02-27 20:13] LABS: Bilirubin Indirect, Calculated 0.4 mg/dL (0.2-0.8); Bilirubin Total 0.6 mg/dL (0.2-1.0)
[2023-02-27] MEDS ORDERED: MORPHINE 4 MG/ML SYR ONE (20:28)
[2023-02-27 22:51] VITALS: BMI 24.5
[2023-02-28] MEDS ORDERED: INFLUENZA VACCINE (for 6+ mo) 0.5 ML DOSE IMVAC ONE (08:00)
[2023-02-28] MEDS: ACETAMINOPHEN 325 MG TABLET PO PRN ×2 (08:29→14:55)
[2023-02-28 08:52] LABS: Potassium 3.5 mEq/L (3.5-5.1)
[2023-02-28] MEDS ORDERED: CLOPIDOGREL 75 MG TABLET PO SCH (09:00)
[2023-02-28] MEDS ORDERED: ENOXAPARIN 40 MG/0.4 ML SQ SCH (09:00)
[2023-02-28] MEDS ORDERED: ASPIRIN EC 81 MG TAB PO SCH (09:00)
[2023-02-28 15:38] VITALS: O2SAT 100
--- NOTE | 2023-02-28 16:30 | P.DS ---
Admission Date: 02/27/23 Discharge Date: 02/28/23 Disposition: ROUTINE DISCHARGE Discharge Condition: FAIR Reason for Admission: Chest pain. - Problems (1) Chest pain Status: Acute (2) COPD (chronic obstructive pulmonary disease) Status: Acute Qualifiers: Emphysema type: unspecified (3) Hypertension Status: Chronic Qualifiers: Brief History of Present Illness: 47-year-old female patient with medical history significant for hyperlipidemia, hypertension was evaluated for episode of chest pain. She reported chest pain located in the midsternal area rated 8 out of 10 in intensity without radiation to the neck or left arm. She denied trauma, fever, chills, cough. She has a strong family history and the youngest person that has a heart issue is in the 40s. Initial troponin trend was negative and EKG did not show any ischemic changes. Patient placed on observation for ACS rule out. Hospital Course: Troponin trended negative. Patient chest pain appears atypical. Recent cardiac catheterization in December 2022 showed no significant coronary artery disease. ACS ruled out. Patient is deemed stable for discharge. Vital Signs/Physical Exam: Temp Pulse Resp BP Pulse Ox 97.3 F 60 16 136/79 98 02/28/23 12:00 02/28/23 12:00 02/28/23 12:00 02/28/23 12:00 02/28/23 12:00 General: Alert, In no apparent distress, Oriented x3 HEENT: Mucous membr. moist/pink Neck: JVD not distended Respiratory: Clear to auscultation bilaterally, Normal air movement Cardiovascular: No edema, Regular rate/rhythm, Normal S1 S2 Gastrointestinal: Normal bowel sounds, Soft and benign, Non-distended Musculoskeletal: No swelling Integumentary: No cyanosis Neurological: Other (Left-sided weakness) Laboratory Data at Discharge: WBC 5.50 thou/uL (4.3-10.9) 02/27/23 18:43 Hgb 10.1 g/dL (12.0-15.0) L 02/27/23 18:43 Hct 29.2 % (36.0-45.0) L 02/27/23 18:43 Plt Count 202 thou/uL (152-406) 02/27/23 18:43 PT 10.9 SECONDS (9.5-12.5) 02/27/23 18:43 INR 0.99 02/27/23 18:43 Sodium 142 mEq/L (136-145) 02/28/23 08:13 Potassium 3.5 mEq/L (3.5-5.1) 02/28/23 08:13 BUN 22 mg/dL (7-18) H 02/28/23 08:13 Creatinine 1.46 mg/dL (0.55-1.02) H 02/28/23 08:13 Glucose 83 mg/dL (74-106) 02/28/23 08:13 Magnesium 1.7 02/27/23 18:43 Total Bilirubin 0.6 mg/dL (0.2-1.0) 02/27/23 18:43 AST 32 U/L (15-37) 02/27/23 18:43 ALT 34 U/L (13-56) 02/27/23 18:43 Alkaline Phosphatase 124 U/L (45-117) H 02/27/23 18:43 Triglycerides 72 mg/dL (<150) 02/28/23 08:13 Cholesterol 135 mg/dL (<200) 02/28/23 08:13 HDL Cholesterol 70 mg/dL (40-60) H 02/28/23 08:13 Cholesterol/HDL Ratio 1.93 02/28/23 08:13 Lipase 30 U/L (13-75) 02/27/23 18:43 Home Medications: Atorvastatin Calcium [Lipitor] 40 mg PO BEDTIME #30 tab 01/03/23 Folic Acid 1 mg PO DAILY #30 tab 01/03/23 Metoprolol Succinate [Toprol Xl*] 25 mg PO BEDTIME #30 tab 01/03/23 lisinopriL [Prinivil*] 20 mg PO DAILY #30 tab 01/03/23 Hydrocodone 5/APAP 325 [[place] 5/325*] 1 tab PO Q8H PRN 12 Days #30 tab 02/14/23 Clopidogrel Bisulfate [Plavix*] 75 mg PO DAILY #30 tab 02/28/23 Codeine/APAP [Tylenol W/Codeine #3 tab] 1 tab PO Q6HP PRN #20 tab 02/28/23 New Medications: Codeine/APAP [Tylenol W/Codeine #3 tab] 1 tab PO Q6HP PRN #20 tab PRN Reason: Pain Clopidogrel Bisulfate [Plavix*] 75 mg PO DAILY #30 tab Diet: AHA Activity: Fall precautions Followup: KELLI GALLOWAY [Primary Care Provider] - 1-2 Weeks Time spent managing pt's care (in minutes): 26
[2023-02-28 17:02] VITALS: BP 149/70; TEMP 99.1
--- NOTE | 2023-03-01 07:51 | ECHO ---
HEIGHT: 5 ft 4 in WEIGHT: 143 lb 0 oz DATE OF STUDY: 02/28/[address]: Giovanni Del Valle MD 2-DIMENSIONAL: YES M.MODE: YES DOPPLER: YES COLOR FLOW: YES TDS: PORTABLE: YES DEFINITY: BUBBLE STUDY: DIAGNOSIS: EVALUATION OF CHEST PAIN CARDIAC HISTORY: CATHERIZATION: NO SURGERY: NO PROSTHETIC VALVE: NO PACEMAKER: NO MEASUREMENTS (cm) DIASTOLIC (NORMALS) SYSTOLIC (NORMALS) IVSd 1.4 (0.6-1.2) LA Diam 2.7 (1.9-4.0) LVEF 55-60% LVIDd 3.9 (3.5-5.7) LVIDs 2.6 (2.0-3.5) %FS 32% LVPWd 1.4 (0.6-1.2) Ao Diam 2.9 (2.0-3.7) 2 DIMENSIONAL ASSESSMENT: RIGHT ATRIUM: NORMAL LEFT ATRIUM: NORMAL RIGHT VENTRICLE: NORMAL LEFT VENTRICLE: NORMAL, MODERATE LEFT VENTRICULAR HYPERTROPHY TRICUSPID VALVE: NORMAL MITRAL VALVE: NORMAL PULMONIC VALVE: NOT SEEN AORTIC VALVE: NORMAL PERICARDIAL EFFUSION: NONE AORTIC ROOT: LEFT VENTRICULAR WALL MOTION: DOPPLER/COLOR FLOW: COMMENTS: 1. MODERATE LEFT VENTRICULAR HYPERTROPHY 2. EJECTION FRACTION 55-60% TECHNOLOGIST: JACINDA BILL
--- NOTE | 2023-03-01 15:24 | EKG ---
Test Date: 2023-02-27 Test Time: 19:14:11 Check Clerk: RAQUEL MEASUREMENT RESULTS: Intervals: Rate: 69 MA: 188 QRSD: 94 QT: 426 QTc: 456 [place]: P: 24 MA: 188 QRS: 2 T: 172 INTERPRETIVE STATEMENTS: Normal sinus rhythm Left ventricular hypertrophy with repolarization abnormality Abnormal ECG Compared to ECG 02/18/2023 10:14:17 No significant changes Electronically Signed On 03-01-23 15:20:26 PATIENT SITTER by Josse Olson
== END 2023-02-28 17:46 | disposition home or self-care (01) ==
LOC: ER 18:05 → ERHOLD 20:02 → UNDOADMOB 21:10 → ERHOLD 21:10 → 2ND 02-28 02:37
PROVIDERS: ADMIT Internal Medicine Nephrology; ATTEND Internal Medicine
DX: R07.89 Other chest pain (principal); J44.9 Chronic obstructive pulmonary disease, unspecified; E78.5 Hyperlipidemia, unspecified; I69.954 Hemiplegia and hemiparesis following unspecified cerebrovascular disease affecting left non-dominant side; I10 Essential (primary) hypertension; F17.210 Nicotine dependence, cigarettes, uncomplicated; Z88.6 Allergy status to analgesic agent; Z91.013 Allergy to seafood; Z91.018 Allergy to other foods
CPT/HCPCS: 36415; 71045; 80048; 80061; 80076; 83690; 83735; 83880; 84484; 85025; 85610; 93005; 93306; 96361; 96374; 96375; 99285; G0378; J1650; J2405; J7030

== ENCOUNTER → 2023-03-09 | Emergency (ER) | payer SELFPAY ==
[~2023-03-09] MED LIST: FAMOTIDINE 20 MG/2 ML VIAL IV ONE; ONDANSETRON 4 MG/2 ML VIAL ONE; POTASSIUM 25 MEQ EFFERV TAB ONE
--- NOTE | 2023-03-09 22:20 | RAD REPORT ---
EXAM DESCRIPTION: MOHSENChest Single View03/09/2023 9:32 pm CLINICAL HISTORY: Chest pain COMPARISON: 02/27/2023 FINDINGS: The lungs appear clear of acute infiltrate. The heart is normal size IMPRESSION: No acute abnormalities displayed
[2023-03-09 22:23] LABS: SARS-CoV-2 Antigen Rapid Res Negative (Negative)
[2023-03-09 22:32] LABS: Absolute Lymphocytes (CBC) 0.8 K/uL (0.7-4.9); Hematocrit 27.9 % (36.0-45.0); Lymphocytes % 5.5 % (15.3-44.8); MCV 90.5 fL (80-100); MPV 7.2 fL (7.6-11.3); Platelets 298 thou/uL (152-406); RBC Red Blood Cell Count 3.08 M/uL (3.86-4.86)
[2023-03-09 22:47] LABS: Magnesium 1.5 mg/dL (1.6-2.4); Potassium 2.9 mEq/L (3.5-5.1)
--- NOTE | 2023-03-09 23:37 | EDPHYS ---
Physician Documentation [facility] Name: Geetha Khan Age: 47 yrs Sex: Female : 1975 Arrival Date: 03/09/2023 Time: 21:15 Bed 12 Private MD: ED Physician Sallie Wilson HPI: 03/09 21:22 This 47 yrs old Female presents to ER via Unassigned with complaints of generalized sb4 pain. 21:22 patient presents via EMS complaining of 4 days of abdominal pain, nausea, vomiting, sb4 headache and dizziness. states she cannot hold anything down. she also endorses left sided chest pain, which is chronic. notably emitting a foul odor. she denies any known fevers/sick contacts . 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 Last tetanus immunization: > 10 years ago Flu vaccine is up to date. - Social history:: Smoking status: Patient reports the use of cigarette tobacco products, smokes one-half pack cigarettes per day, Patient/guardian denies using alcohol, street drugs. ROS: 21:22 Constitutional: Negative for fever, chills, and weight loss, sb4 21:22 Abdomen/GI: Positive for abdominal pain, nausea and vomiting, 21:22 Neuro: Positive for headache, 21:22 All other systems are negative, Exam: 21:22 Head/Face: Normocephalic, atraumatic. Eyes: Extra-ocular motions intact. Periorbital sb4 areas with no swelling, redness, or edema. ENT: Mucous membranes moist. Cardiovascular: Regular rate and rhythm with a normal S1 and S2. Respiratory: Lungs have equal breath sounds bilaterally, clear to auscultation and percussion. No rales, rhonchi or wheezes noted. No increased work of breathing, no retractions or nasal flaring. Abdomen/GI: Soft, non-tender, no distension. Skin: Warm, dry with normal turgor. Normal color with no rashes, no lesions, and no evidence of cellulitis. MS/ Extremity: Pulses equal, no cyanosis. Neurovascular intact. Full, normal range of motion. Neuro: Awake and alert, GCS 15, oriented to person, place, time, and situation. Motor strength 5/5 in all extremities. Sensory grossly intact. 21:22 Constitutional: The patient appears alert, awake, smells of urine, unkempt, Vital Signs: 21:24 BP 142 / 81; Pulse 95; Resp 18; Temp 98.8; Pulse Ox 100% on R/A; Weight 65.77 kg; pf1 Height 5 ft. 3 in. ; Pain 10/10; 21:45 BP 146 / 96; Pulse 98; Resp 27 S; Pulse Ox 98% on R/A; jw7 22:30 BP 136 / 94; Pulse 96; Resp 26 S; Pulse Ox 98% on R/A; jw7 23:30 BP 139 / 91; Pulse 88; Resp 24 S; Pulse Ox 97% on R/A; jw7 21:24 Body Mass Index 25.69 (65.77 kg, 160.02 cm) pf1 21:24 Pain Scale: Adult pf1 MDM: 21:15 Patient medically screened. sb4 21:22 Differential Diagnosis covid, flu, gastroenteritis, uti, pneumonia, viral syndrome. sb4 23:35 Data reviewed: vital signs, nurses notes, EMS record, lab test result(s), EKG, sb4 radiologic studies, and as a result, I will discharge patient. Consideration of Admission/Observation Escalation of care including admission/observation considered. Care significantly affected by the following chronic conditions: Hypertension, Congestive Heart Failure, Chronic Obstructive Pulmonary Disease. Counseling: I had a detailed discussion with the patient and/or guardian regarding the historical points, exam findings, and any diagnostic results supporting the discharge/admit diagnosis, the presence of at least one elevated blood pressure reading (>120/80) during this emergency department visit, lab results, radiology results, the need for outpatient follow up, for definitive care, to return to the emergency department if symptoms worsen or persist or if there are any questions or concerns that arise at home. 03/09 21:17 Order name: Basic Metabolic Panel; Complete Time: 22:48 sb4 12/23 21:17 Order name: CBC with Diff sb4 03/09 21:17 Order name: Magnesium; Complete Time: 22:48 sb4 03/09 21:17 Order name: NT PRO-BNP; Complete Time: 22:48 sb4 03/09 21:17 Order name: Troponin HS; Complete Time: 22:48 sb4 03/09 21:22 Order name: SARS RAPID; Complete Time: 22:27 sb4 03/09 21:22 Order name: Flu; Complete Time: 22:31 sb4 03/09 21:17 Order name: XRAY Chest (1 view); Complete Time: 22:21 sb4 03/09 21:17 Order name: Head Brain Wo Cont CT sb4 03/09 23:49 Order name: Abdomen EDMS 03/09 21:17 Order name: EKG; Complete Time: 21:18 sb4 03/09 21:17 Order name: Cardiac monitoring; Complete Time: 22:00 sb4 03/09 21:17 Order name: EKG - Nurse/Tech; Complete Time: 21:52 sb4 03/09 21:17 Order name: IV Saline Lock; Complete Time: 22:00 sb4 03/09 21:17 Order name: Labs collected and sent; Complete Time: 22:00 sb4 03/09 21:17 Order name: O2 Per Protocol; Complete Time: 22:00 sb4 03/09 21:17 Order name: O2 Sat Monitoring; Complete Time: 22:00 sb4 EC:28 Rate is 95 beats/min. Rhythm is regular, Normal Sinus Rhythm. RI interval is normal at sb4 160 msec. QRS interval is normal at 90 msec. QT interval is normal at 380 msec. No Q waves. T waves are Normal. No ST changes noted. Clinical impression: Abnormal EKG without significant change, LVH, and No evidence of ischemia. Interpreted by me. Reviewed by me. Administered Medications: 22:14 Drug: Ondansetron IVP 4 mg IVP once; over 2 minutes Route: IVP; Site: right antecubital;jw7 23:38 Follow up: Response: No adverse reaction; Marked relief of symptoms jw7 22:14 Drug: Famotidine IVP 20 mg IVP once; dilute with 10 mL 0.9% NaCl; give over 2 minutes jw7 Route: IVP; Site: right antecubital; 23:38 Follow up: Response: No adverse reaction; Marked relief of symptoms jw7 23:38 Drug: Potassium PO Effervescent Tablet 50 mEq PO once; dissolve in 4 ounces of water or jw7 juice Route: PO; 23:39 Follow up: Response: No adverse reaction jw7 Disposition: 03/10 07:25 Co-signature as Attending Physician, Sallie Wilson I reviewed the patient's care ci provided by the Advanced Practice Provider and agree with the diagnosis and treatment plan. Disposition Summary: 03/09/23 23:36 Discharge Ordered Notes: Location: Home sb4 Problem: new sb4 Symptoms: have improved sb4 Condition: Stable sb4 Diagnosis - Noninfective gastroenteritis and colitis, unspecified sb4 - Hypokalemia sb4 Followup: sb4 - With: Emergency Department - When: As needed - Reason: Trouble breathing, Worsening of condition Discharge Instructions: - Discharge Summary Sheet sb4 - Viral Gastroenteritis, Adult sb4 - Hypokalemia sb4 Forms: - Medication Reconciliation Form sb4 - Thank You Letter sb4 - Antibiotic Education sb4 - Prescription Opioid Use sb4 - Patient Portal Instructions sb4 - Leadership Thank You Letter sb4 Signatures: Dispatcher [employer] EDMS Lauren Nguyen RN RN jw7 Kalli Bradshaw, PAGiseleC PAGiseleC sb4 Maddy Gar RN RN pf1 Sallie Wilson Corrections: (The following items were deleted from the chart) 03/09 23:49 21:21 Abdomen Pelvis W Con+CT.RAD.BRZ ordered. EDMS EDMS
--- NOTE | 2023-03-09 23:37 | ER ---
Nurse's Notes [facility] Name: Geetha Khan Age: 47 yrs Sex: Female : 1975 Arrival Date: 03/09/2023 Time: 21:15 Bed 12 Private MD: Diagnosis: Noninfective gastroenteritis and colitis, unspecified;Hypokalemia Presentation: 03/09 21:24 Chief complaint: Patient states: bilateral chest pain, lower abdominal pain of 10, SOB, pf1 nausea, vomiting with dizziness for 4 days. Coronavirus screen: Vaccine status: Patient reports being unvaccinated. Client denies travel out of the [place] in the last 14 days. Client presents with at least one sign or symptom that may indicate coronavirus-19. Ebola Screen: Patient negative for fever greater than or equal to 101.5 degrees Fahrenheit, and additional compatible Ebola Virus Disease symptoms. Initial Sepsis Screen: Does the patient meet any 2 criteria? No. Patient's initial sepsis screen is negative. Does the patient have a suspected source of infection? No. Patient's initial sepsis screen is negative. Risk Assessment: Do you want to hurt yourself or someone else? Patient reports no desire to harm self or others. 21:24 Method Of Arrival: EMS: [facility] pf1 21:24 Acuity: [place] 2 pf1 22:00 Onset of symptoms was March 06, 2023. 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 Last tetanus immunization: > 10 years ago Flu vaccine is up to date. - Social history:: Smoking status: Patient reports the use of cigarette tobacco products, smokes one-half pack cigarettes per day, Patient/guardian denies using alcohol, street drugs. Screenin:55 [facility] ED Fall Risk Assessment (Adult) History of falling in the last 3 months, jw7 including since admission No falls in past 3 months (0 pts) Confusion or Disorientation No (0 pts) Intoxicated or Sedated No (0 pts) Impaired Gait Yes (1 pt) Mobility Assist Device Used No (0 pt) Altered Elimination No (0 pt) Score/Fall Risk Level 0 - 2 = Low Risk Oriented to surroundings, Maintained a safe environment. Abuse screen: Denies threats or abuse. Denies injuries from another. Nutritional screening: No deficits noted. Tuberculosis screening: No symptoms or risk factors identified. Assessment: 21:55 General: Appears in no apparent distress. comfortable, Behavior is calm, cooperative. jw7 Pain: Complains of pain in chest and abdomen, and head Pain does not radiate. Pain currently is 8 out of 10 on a pain scale. Quality of pain is described as pressure, Pain began 2-3 days ago. Is continuous. Neuro: Mullen Agitation-Sedation Scale (RASS): 0 - Alert and Calm Level of Consciousness is awake, alert, obeys commands, Oriented to person, place, time, situation. Cardiovascular: Capillary refill < 3 seconds Clubbing of nail beds is absent JVD is absent Patient's skin is warm and dry. Respiratory: Airway is patent Trachea midline Respiratory effort is even, unlabored, Respiratory pattern is regular, symmetrical. GI: Abdomen is round non-distended. : No deficits noted. No signs and/or symptoms were reported regarding the genitourinary system. EENT: No deficits noted. No signs and/or symptoms were reported regarding the EENT system. Derm: No deficits noted. No signs and/or symptoms reported regarding the dermatologic system. Musculoskeletal: Range of motion: limited in Left side due to previous stroke. 23:31 Reassessment: Patient appears in no apparent distress at this time. No changes from jw7 previously documented assessment. Patient and/or family updated on plan of care and expected duration. Pain level reassessed. Patient is alert, oriented x 3, equal unlabored respirations, skin warm/dry/pink. Vital Signs: 21:24 BP 142 / 81; Pulse 95; Resp 18; Temp 98.8; Pulse Ox 100% on R/A; Weight 65.77 kg; pf1 Height 5 ft. 3 in. ; Pain 10/10; 21:45 BP 146 / 96; Pulse 98; Resp 27 S; Pulse Ox 98% on R/A; jw7 22:30 BP 136 / 94; Pulse 96; Resp 26 S; Pulse Ox 98% on R/A; jw7 23:30 BP 139 / 91; Pulse 88; Resp 24 S; Pulse Ox 97% on R/A; jw7 21:24 Body Mass Index 25.69 (65.77 kg, 160.02 cm) pf1 21:24 Pain Scale: Adult pf1 ED Course: 21:15 Patient arrived in ED. sb4 21:15 Kalli Bradshaw PA-C is PHCP. sb4 21:15 Sallie Wilson is Attending Physician. sb4 21:27 Triage completed. pf1 21:34 XRAY Chest (1 view) In Process Unspecified. EDMS 21:35 Lauren Nguyen, YANETH is Primary Nurse. jw7 21:55 Patient has correct armband on for positive identification. Bed in low position. Call jw7 light in reach. Side rails up X2. 21:55 Initial lab(s) drawn, by ED staff, sent to lab. EKG done, by ED staff, reviewed by hemal Bradshaw PA-C COVID swab sent to lab. Flu and/or RSV swab sent to lab. Inserted saline lock: 22 gauge in right antecubital area, using aseptic technique. Blood collected. 22:00 Arm band placed on. jw7 22:00 Flu Sent. jw7 22:00 SARS RAPID Sent. jw7 23:48 No provider procedures requiring assistance completed. IV discontinued, intact, jw7 bleeding controlled, No redness/swelling at site. Pressure dressing applied. 23:49 Head Brain Wo Cont CT In Process Unspecified. EDMS 23:49 Abdomen In Process Unspecified. EDMS 23:49 Provided Education on: discharge instructions. jw7 Administered Medications: 22:14 Drug: Ondansetron IVP 4 mg IVP once; over 2 minutes Route: IVP; Site: right antecubital;jw7 23:38 Follow up: Response: No adverse reaction; Marked relief of symptoms jw7 22:14 Drug: Famotidine IVP 20 mg IVP once; dilute with 10 mL 0.9% NaCl; give over 2 minutes jw7 Route: IVP; Site: right antecubital; 23:38 Follow up: Response: No adverse reaction; Marked relief of symptoms jw7 23:38 Drug: Potassium PO Effervescent Tablet 50 mEq PO once; dissolve in 4 ounces of water or jw7 juice Route: PO; 23:39 Follow up: Response: No adverse reaction jw7 Medication: 23:49 VIS not applicable for this client. jw7 Outcome: 23:36 Discharge ordered by MD. mattson 23:48 Discharged to home via wheelchair, with family, hemal 23:48 Condition: stable 23:48 Discharge instructions given to patient, Instructed on discharge instructions, follow up and referral plans. Demonstrated understanding of instructions, follow-up care, 23:49 Patient left the ED. jw7 Signatures: Dispatcher [employer] EDMS Lauren Nguyen RN RN jw7 Kalli Bradshaw, PA-C PA-C sb4 Maddy Gar RN RN pf1
[2023-03-10 01:28] VITALS: TEMP 98.8
[2023-03-10 01:46] VITALS: BP 139/91; O2SAT 97
[2023-03-10 05:20] LABS: Blood Morphology Comment NOT SEEN (NOT SEEN); Platelet Estimate ADEQ; White Blood Cell Scan OK (OK)
--- NOTE | 2023-03-11 12:40 | RAD REPORT ---
EXAM DESCRIPTION: CT - Abdomen Pelvis Wo Contrast - 03/10/2023 7:20 am CLINICAL HISTORY: 47 years Female, ABD PAIN TECHNIQUE: Helical CT axial images are obtained from the lung bases to the pubic symphysis without I V contrast. No oral contrast was administered. Multiplanar reconstruction. This exam was performed ac cording to our departmental dose-optimization program, which includes automated exposure control, adj ustment of the mA and/or kV according to patient size and/or use of iterative reconstruction techniqu e. COMPARISON: 08/05/2022 FINDINGS: Motion artifact and streak artifact from patient's arms mildly limits this exam. LUNG BASES: No basilar consolidation or effusions. LIVER: Hepatomegaly. Homogenous attenuation. No focal masses. HEPATOBILIARY: Status post cholecystectomy. No intra- or extrahepatic ductal dilatation. SPLEEN: Mild splenomegaly. PANCREAS: Normal size and contour. No focal mass. ADRENAL GLANDS: Normal size. No adrenal masses. KIDNEYS: No obstructing calculi or hydronephrosis bilaterally. Mild right renal atrophy. No nephrol ithiasis. No significant cysts are present. BOWEL AND MESENTERY: No small or large bowel dilatation. No colonic diverticulosis. Normal appendix. No abnormal mesenteric lymphadenopathy. No free fluid or pneumoperitoneum. RETROPERITONEUM: Normal caliber abdominal aorta without aneurysm. No abnormal retroperitoneal lymphad enopathy. PELVIS: Urinary bladder is unremarkable. Uterus and adnexal regions are unremarkable. ABDOMINAL WALL: The abdominal wall is intact. BONES: No suspicious osseous lytic or blastic lesions seen. IMPRESSION: 1. No acute intra-abdominal or pelvic disease. 2. Hepatosplenomegaly. 3. Status post cholecystectomy. 4. Mild right renal atrophy. 5. Motion artifact and streak artifact from patient's arms mildly limits this exam. Electronically signed by: Scott Wilson MD 03/10/2023 12:08 AM CYBER SECURITY MANAGER Due to temporary technical issues with the PACS/Fluency reporting system, reports are being signed by the in house radiologists without review as a courtesy to insure prompt reporting. The interpreting radiologist is fully responsible for the content of the report.
--- NOTE | 2023-03-11 13:02 | RAD REPORT ---
EXAM DESCRIPTION: CT - Head Brain Wo Cont - 03/10/2023 7:20 am CLINICAL HISTORY: 47 years, Female, DIZZINESS COMPARISON: 11/21/2022 FINDINGS: Multiple transaxial tomograms of the brain were obtained from the base of the skull to the vertex without contrast. An individualized dose optimization technique, Automated Exposure Control, was utilized for the perfo rmed procedure. Focal areas of hypodensity evolving/porencephalic changes within the right basal ganglia at the level of the region of the previous intraparenchymal hemorrhage. The rest of the brain parenchyma as well as the mack and white matter differentiation demonstrate to be unremarkable. There is no evidence for acute intraparenchymal hemorrhage. There is no midline shift and/or mass effect. No focal areas of h ypodensities. Lateral ventricles and cisterns displace normal appearance. No intra or extra axial fluid collections were seen. The calvarium demonstrate to be intact with no evidence for acute bony injuries. The visualized portions of the paranasal sinuses and orbits demonstrate to be clear. IMPRESSION: Focal areas of hypodensity evolving/porencephalic changes within the right basal ganglia at the level of the previous intraparenchymal hemorrhage. No evidence for acute intraparenchymal hemorrhage. Electronically signed by: Ashwin Morel MD 03/10/2023 12:02 AM MARKING STITCHER Due to temporary technical issues with the PACS/Fluency reporting system, reports are being signed by the in house radiologists without review as a courtesy to insure prompt reporting. The interpreting radiologist is fully responsible for the content of the report.
== END ==
LOC: ER 21:15
DX: K52.9 Noninfective gastroenteritis and colitis, unspecified (principal); E87.6 Hypokalemia; Z11.52 Encounter for screening for COVID-19
CPT/HCPCS: 36415; 70450; 71045; 74176; 80048; 83735; 83880; 84484; 85025; 87804; 87811; 93005; 96374; 96375; 99284; J2405

== ENCOUNTER → 2023-04-19 | Emergency (ER) | payer SELFPAY ==
[~2023-04-19] MED LIST changes: +ALBUTEROL 2.5 MG/3 ML NEB SOL ONE; -FAMOTIDINE 20 MG/2 ML VIAL IV ONE; +IPRATROPIUM BROM 0.5MG/2.5ML ONE; +MORPHINE 4 MG/ML SYR ONE; +NA CHLORIDE 0.9% 1,000 ML ONE; -POTASSIUM 25 MEQ EFFERV TAB ONE
[2023-04-19 03:51] LABS: Absolute Lymphocytes (CBC) 1.5 K/uL (0.7-4.9); Hematocrit 33.2 % (36.0-45.0); Lymphocytes % 19.8 % (15.3-44.8); MCV 93.4 fL (80-100); MPV 6.9 fL (7.6-11.3); Platelets 271 thou/uL (152-406); RBC Red Blood Cell Count 3.55 M/uL (3.86-4.86)
[2023-04-19 04:20] LABS: Albumin 3.7 g/dL (3.4-5.0); Bilirubin Direct 0.2 mg/dL (0-0.2); Bilirubin Indirect, Calculated 0.3 mg/dL (0.2-0.8); Bilirubin Total 0.5 mg/dL (0.2-1.0); Magnesium 1.8 mg/dL (1.6-2.4); Potassium 4.2 mEq/L (3.5-5.1); Protein, Total 7.7 g/dL (6.4-8.2); Troponin High Sensitivity 43.7 pg/mL (<58.9)
--- NOTE | 2023-04-19 06:03 | EDPHYS ---
Physician Documentation [facility] Name: Geetha Khan Age: 48 yrs Sex: Female : 1975 Arrival Date: 04/19/2023 Time: 03:18 Bed 6 Private MD: ED Physician Kye De Anda HPI: 04/19 04:16 This 48 yrs old Female presents to ER via Wheelchair with complaints of Chest Pain, rt Shoulder Pain. 04:16 Patient presents to the ED with right-sided chest pain that radiates to the right rt shoulder. The patient states that the pain started last night. Did not take anything for the symptoms. Denies other acute complaints at this time, symptoms are moderate in severity, no other aggravating or alleviating factors.. 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 Last tetanus immunization: > 10 years ago Flu vaccine is up to date. - Social history:: Smoking status: Patient reports the use of cigarette tobacco products, Patient/guardian denies using alcohol, street drugs. - Family history:: not pertinent. ROS: 04:16 Constitutional: Negative for fever, chills, and weight loss, Respiratory: Negative for rt shortness of breath, cough, wheezing, and pleuritic chest pain, Abdomen/GI: Negative for abdominal pain, nausea, vomiting, diarrhea, and constipation, MS/Extremity: Negative for injury and deformity, Skin: Negative for injury, rash, and discoloration, Neuro: Negative for headache, weakness, numbness, tingling, and seizure, Psych: Negative for depression, anxiety, suicide ideation, homicidal ideation, and hallucinations, 04:16 Cardiovascular: Positive for chest pain, Negative for edema, Exam: 04:16 Constitutional: This is a well developed, well nourished patient who is awake, alert, rt and in no acute distress. Head/Face: Normocephalic, atraumatic. Chest/axilla: Normal chest wall appearance and motion. Nontender with no deformity. No lesions are appreciated. Cardiovascular: Regular rate and rhythm with a normal S1 and S2. No gallops, murmurs, or rubs. Normal PMI, no JVD. No pulse deficits. Abdomen/GI: Soft, non-tender, with normal bowel sounds. No distension or tympany. No guarding or rebound. No evidence of tenderness throughout. Skin: Warm, dry with normal turgor. Normal color with no rashes, no lesions, and no evidence of cellulitis. MS/ Extremity: Pulses equal, no cyanosis. Neurovascular intact. Full, normal range of motion. 04:16 ECG was reviewed by the Attending Physician. 04:16 Abdomen/GI: Wheezes heard on all lung cortez, no respiratory distress, 04:16 Neuro: Left-sided hemiparesis, chronic, Vital Signs: 03:24 BP 103 / 81; Pulse 85; Resp 18; Temp 98.1; Pulse Ox 97% on R/A; Weight 65.77 kg; Height pf1 5 ft. 2 in. ; Pain 10/10; 04:39 BP 108 / 72; Pulse 79; Resp 16; Pulse Ox 100% on R/A; jb4 05:30 BP 135 / 71; Pulse 81; Resp 19; Pulse Ox 97% on R/A; ha1 06:36 BP 104 / 73; Pulse 80; Resp 20; Pulse Ox 98% on R/A; ha1 03:24 Body Mass Index 26.52 (65.77 kg, 157.48 cm) pf1 03:24 Pain Scale: Adult pf1 MDM: 03:29 Patient medically screened. rt 06:03 Differential diagnosis: ACS, chest wall pain, pneumonia. The patient was not given rt aspirin in the Emergency Department. Aspirin not given, patient refused. Data reviewed: vital signs, nurses notes, lab test result(s), EKG, radiologic studies. Consideration of Admission/Observation Escalation of care including admission/observation considered. Patient with no significant coronary disease in November. Has 2 negative troponins, low suspicion for acute coronary syndrome as the etiology of the patient's presentation, stable for outpatient care.. I considered the following discharge prescriptions or medication management in the emergency department Medications were administered in the Emergency Department. See MAR. Independent interpretation of the following test(s) in the Emergency Department X-Ray: My interpretation is No pneumonia seen on interpretation of x-ray images. Test considered but Not performed: CT: Low suspicion for PE, CT angiogram not indicated. Care significantly affected by the following chronic conditions: Hypertension. Counseling: I had a detailed discussion with the patient and/or guardian regarding the historical points, exam findings, and any diagnostic results supporting the discharge/admit diagnosis, lab results, radiology results, the need for outpatient follow up. Response to treatment: the patient's symptoms have markedly improved after treatment. 04/19 03:35 Order name: Basic Metabolic Panel; Complete Time: 04:20 rt 04/19 03:35 Order name: CBC with Diff; Complete Time: 04:19 rt 04/19 03:35 Order name: LFT's; Complete Time: 04:20 rt 04/19 03:35 Order name: Magnesium; Complete Time: 04:20 rt 04/19 03:35 Order name: Troponin HS; Complete Time: 04:20 rt 04/19 05:21 Order name: Troponin High Sensitivity; Complete Time: 05:59 rt 04/19 03:35 Order name: XRAY Chest (1 view) rt 04/19 03:35 Order name: EKG; Complete Time: 03:35 rt 04/19 03:35 Order name: Cardiac monitoring; Complete Time: 03:42 rt 02 03:35 Order name: EKG - Nurse/Tech; Complete Time: 03:42 rt 02 03:35 Order name: IV Saline Lock; Complete Time: 03:43 rt 02 03:35 Order name: Labs collected and sent; Complete Time: 03:43 rt 04/19 03:35 Order name: O2 Per Protocol; Complete Time: 03:43 rt 04/19 03:35 Order name: O2 Sat Monitoring; Complete Time: 03:43 rt EC:16 Rate is 76 beats/min. Rhythm is regular, Normal Sinus Rhythm with Occasional PVCs, LVH rt with repolarization abnormality, no appreciable change compared to multiple prior EKGs. CA interval is normal. QRS interval is normal. QT interval is normal. No Q waves. Administered Medications: 03:54 Drug: DuoNeb Nebulize (3:1) (2.5 mg - 0.5 mg) 3 ml Nebulizer once Route: Nebulizer; jb4 03:54 Drug: NS 0.9% IV 1000 ml IV at 1 bolus Per protocol; 1000 mL bolus Route: IV; Rate: 1 jb4 bolus; Site: right antecubital; 05:35 Drug: morphine IVP or IV 4 mg IVP once over 4 mins Route: IVP; Infused Over: 4 mins; jb4 Site: right antecubital; 05:35 Drug: Ondansetron IVP 4 mg IVP once; over 2 minutes Route: IVP; Site: right antecubital;jb4 Disposition Summary: 04/19/23 06:03 Discharge Ordered Notes: Location: Home rt Problem: new rt Symptoms: have improved rt Condition: Stable rt Diagnosis - Chest pain, unspecified rt Followup: rt - With: Private Physician - When: 2 - 3 days - Reason: Discharge Instructions: - Discharge Summary Sheet rt - Nonspecific Chest Pain, Adult rt Forms: - Medication Reconciliation Form rt - Thank You Letter rt - Antibiotic Education rt - Prescription Opioid Use rt - Patient Portal Instructions rt - Leadership Thank You Letter rt Signatures: Dispatcher [employer] Jaziel Cameron, RN RN jb4 Kye De Anda MD MD rt Maddy Gar RN RN pf1
--- NOTE | 2023-04-19 06:03 | ER ---
Nurse's Notes [facility] Name: Geetha Khan Age: 48 yrs Sex: Female : 1975 Arrival Date: 04/19/2023 Time: 03:18 Bed 6 Private MD: Diagnosis: Chest pain, unspecified Presentation: 04/19 03:24 Chief complaint: Patient states: right side chest pain of 10 that radiates to right pf1 shoulder,onset night while laying down watching TV. 03:24 Coronavirus screen: Vaccine status: Patient reports being unvaccinated. Client denies 1 travel out of the [place] in the last 14 days. At this time, the client does not indicate any symptoms associated with coronavirus-19. Ebola Screen: Patient negative for fever greater than or equal to 101.5 degrees Fahrenheit, and additional compatible Ebola Virus Disease symptoms. Initial Sepsis Screen: Does the patient meet any 2 criteria? No. Patient's initial sepsis screen is negative. Does the patient have a suspected source of infection? No. Patient's initial sepsis screen is negative. Risk Assessment: Do you want to hurt yourself or someone else? Patient reports no desire to harm self or others. 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 Last tetanus immunization: > 10 years ago Flu vaccine is up to date. - Social history:: Smoking status: Patient reports the use of cigarette tobacco products, Patient/guardian denies using alcohol, street drugs. - Family history:: not pertinent. Screenin:37 [facility] ED Fall Risk Assessment (Adult) History of falling in the last 3 months, ha1 including since admission Yes- single mechanical fall (1 pt) Confusion or Disorientation No (0 pts) Intoxicated or Sedated No (0 pts) Impaired Gait Yes (1 pt) Mobility Assist Device Used Yes (1 pt) Altered Elimination No (0 pt) Score/Fall Risk Level 3 or more points = High Risk Oriented to surroundings, Maintained a safe environment, Hourly rounding (assess needs \T\ fall precautionary measures) done. Abuse screen: Denies threats or abuse. Denies injuries from another. Nutritional screening: No deficits noted. Tuberculosis screening: No symptoms or risk factors identified. Tuberculosis screening: No symptoms or risk factors identified. Assessment: 03:44 General: Appears in no apparent distress. comfortable, Behavior is calm, cooperative, jb4 appropriate for age. Pain: Complains of pain in chest Pain radiates to Left shoulder, right breast Pain. Neuro: Level of Consciousness is awake, alert, obeys commands, Oriented to person, place, time, situation. Cardiovascular: Patient's skin is warm and dry. Respiratory: Airway is patent Respiratory effort is even, unlabored, Respiratory pattern is regular, symmetrical. GI: No signs and/or symptoms were reported involving the gastrointestinal system. : No signs and/or symptoms were reported regarding the genitourinary system. EENT: No signs and/or symptoms were reported regarding the EENT system. Derm: Skin is intact, Skin is pink, warm \T\ dry. Musculoskeletal: Circulation, motion, and sensation intact. Range of motion: Intact on right side, pt suffers deficits on left side from prior CVA. 04:52 Reassessment: Patient appears in no apparent distress at this time. Patient and/or jb4 family updated on plan of care and expected duration. Pain level reassessed. Patient is alert, oriented x 3, equal unlabored respirations, skin warm/dry/pink. 06:00 Reassessment: Patient and/or family updated on plan of care and expected duration. Pain ha1 level reassessed. Patient is alert, oriented x 3, equal unlabored respirations, skin warm/dry/pink. Vital Signs: 03:24 BP 103 / 81; Pulse 85; Resp 18; Temp 98.1; Pulse Ox 97% on R/A; Weight 65.77 kg; Height pf1 5 ft. 2 in. ; Pain 10/10; 04:39 BP 108 / 72; Pulse 79; Resp 16; Pulse Ox 100% on R/A; jb4 05:30 BP 135 / 71; Pulse 81; Resp 19; Pulse Ox 97% on R/A; ha1 06:36 BP 104 / 73; Pulse 80; Resp 20; Pulse Ox 98% on R/A; ha1 03:24 Body Mass Index 26.52 (65.77 kg, 157.48 cm) pf1 03:24 Pain Scale: Adult pf1 ED Course: 03:22 Patient arrived in ED. jj6 03:23 Kye De Anda MD is Attending Physician. rt 03:24 Arm band placed on right wrist. ha1 03:24 Patient has correct armband on for positive identification. Placed in gown. Bed in low ha1 position. Call light in reach. Side rails up X2. Client placed on continuous cardiac and pulse oximetry monitoring. NIBP monitoring applied. alarm security or surveillance monitor on. 03:34 Jaziel Storm, RN is Primary Nurse. jb4 03:39 Triage completed. pf1 03:58 XRAY Chest (1 view) In Process Unspecified. EDMS 06:39 No provider procedures requiring assistance completed. IV discontinued, intact, ha1 bleeding controlled, No redness/swelling at site. Pressure dressing applied. Administered Medications: 03:54 Drug: DuoNeb Nebulize (3:1) (2.5 mg - 0.5 mg) 3 ml Nebulizer once Route: Nebulizer; jb4 03:54 Drug: NS 0.9% IV 1000 ml IV at 1 bolus Per protocol; 1000 mL bolus Route: IV; Rate: 1 jb4 bolus; Site: right antecubital; 05:35 Drug: morphine IVP or IV 4 mg IVP once over 4 mins Route: IVP; Infused Over: 4 mins; jb4 Site: right antecubital; 05:35 Drug: Ondansetron IVP 4 mg IVP once; over 2 minutes Route: IVP; Site: right antecubital;jb4 Medication: 06:40 VIS not applicable for this client. ha1 Outcome: 06:03 Discharge ordered by . rt 06:39 Discharged to home via wheelchair, ha1 06:39 Condition: stable 06:39 Discharge instructions given to patient, family, Instructed on discharge instructions, follow up and referral plans. Demonstrated understanding of instructions, follow-up care, 06:41 Patient left the ED. ha1 Signatures: Dispatcher [employer] EDMS Jaziel Storm, RN RN jb4 Bia Garcia jj6 Aydee Ulrich, RN RN ha1 Kye De Anda MD MD rt Maddy Gar RN RN pf1
[2023-04-19 06:50] VITALS: BP 104/73; TEMP 98.1; O2SAT 98
--- NOTE | 2023-04-19 16:57 | RAD REPORT ---
EXAM DESCRIPTION: EXAM: XR Chest 1 View AP CLINICAL HISTORY: Chest Pain COMPARISON: Chest 1 View AP 12/23/2022 CTA chest 01/18/2023 TECHNIQUE: Chest 1 View AP FINDINGS: Trachea midline. Heart size and pulmonary vessels within normal limits. Lungs clear without evidence of consolidation, mass, or significant pulmonary edema. No significant pleural effusion or pneumothorax. Osteopenia or diffuse decreased bone density. IMPRESSION: No radiographic evidence of acute chest disease. Electronically signed by: Vijay Carter MD 04/19/2023 04:07 AM RECLAMATION WORKER Due to temporary technical issues with the PACS/Fluency reporting system, reports are being signed by the in house radiologists without review as a courtesy to insure prompt reporting. The interpreting radiologist is fully responsible for the content of the report.
--- NOTE | 2023-04-22 15:11 | EKG ---
Test Date: 2023-04-19 Test Time: 03:34:17 Polysomnographic Technician: ARTEM MEASUREMENT RESULTS: Intervals: Rate: 76 WY: 186 QRSD: 90 QT: 388 QTc: 436 [place]: P: 55 WY: 186 QRS: 15 T: 169 INTERPRETIVE STATEMENTS: Sinus rhythm with occasional premature ventricular complexes Left ventricular hypertrophy with repolarization abnormality Abnormal ECG Compared to ECG 03/09/2023 21:23:46 Ventricular premature complex(es) now present Electronically Signed On 04-22-23 15:02:51 QUARRY SUPERVISOR by Josse Olson
== END ==
LOC: ER 03:18
DX: R07.9 Chest pain, unspecified (principal)
CPT/HCPCS: 36415; 71045; 80048; 80076; 83735; 84484; 85025; 93005; 94640; J2405; J7030; J7613; J7644

== ENCOUNTER → 2023-05-05 | Emergency (ER) | payer OTHER, SELFPAY ==
[~2023-05-05] MED LIST changes: -ALBUTEROL 2.5 MG/3 ML NEB SOL ONE; +HYDROCODONE/APAP 5/325 MG TAB ONE; -IPRATROPIUM BROM 0.5MG/2.5ML ONE; -MORPHINE 4 MG/ML SYR ONE; -NA CHLORIDE 0.9% 1,000 ML ONE; -ONDANSETRON 4 MG/2 ML VIAL ONE
--- NOTE | 2023-05-05 19:28 | RAD REPORT ---
EXAM DESCRIPTION: RAD - Shoulder Right 2 View - 05/05/2023 7:06 pm CLINICAL HISTORY: PAIN COMPARISON: Shoulder Right 2 View dated 02/20/2023 FINDINGS/IMPRESSION: No acute fracture. No malalignment. No significant focal degenerative changes.
--- NOTE | 2023-05-05 19:35 | EDPHYS ---
Physician Documentation [facility] Name: Geetha Khan Age: 48 yrs Sex: Female : 1975 Arrival Date: 05/05/2023 Time: 17:33 Bed 19 Private MD: ED Physician Kye De Anda HPI: 05/05 17:53 This 48 yrs old Female presents to ER via Unassigned with complaints of shoulder pain. sb4 17:53 The patient or guardian complains of an injury, pain, that is acute. right shoulder. sb4 patient states that her shoulder "popped" a few days ago when her family was moving her. she is now complaining of pain with ROM in that shoulder, primarily on the posterior side. no sob, nausea, vomiting, diarrhea. 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 - Social history:: Smoking status: Patient reports the use of cigarette tobacco products, smokes one-half pack cigarettes per day. ROS: 17:53 Constitutional: Negative for fever, chills, and weight loss, sb4 17:53 MS/extremity: Positive for pain, of the right shoulder, 17:53 All other systems are negative, Exam: 17:53 Constitutional: This is a well developed, well nourished patient who is awake, alert, sb4 and in no acute distress. Head/Face: Normocephalic, atraumatic. Eyes: Extra-ocular motions intact. Periorbital areas with no swelling, redness, or edema. ENT: Mucous membranes moist. Cardiovascular: Regular rate and rhythm with a normal S1 and S2. Respiratory: Lungs have equal breath sounds bilaterally, clear to auscultation and percussion. No rales, rhonchi or wheezes noted. No increased work of breathing, no retractions or nasal flaring. Abdomen/GI: Soft, non-tender, no distension. Skin: Warm, dry with normal turgor. Normal color with no rashes, no lesions, and no evidence of cellulitis. 17:53 Musculoskeletal/extremity: ROM: limited active range of motion due to pain, limited passive range of motion due to pain, in the right shoulder, Circulation is intact in all extremities. Pulses: are normal with no appreciated deficits, Perfusion: the extremity is normally perfused throughout, Sensation intact. Vital Signs: 18:20 BP 125 / 81; Pulse 65; Resp 18; Temp 97.7(O); Pulse Ox 100% on R/A; Weight 65.77 kg; tl4 Height 5 ft. 2 in. ; Pain 8/10; 18:40 BP 109 / 74; Pulse 66; Resp 18; Pulse Ox 100% on R/A; tl4 19:39 BP 114 / 75; Pulse 65; Resp 15; Pulse Ox 97% ; vc1 18:20 Body Mass Index 26.52 (65.77 kg, 157.48 cm) tl4 18:20 Pain Scale: Adult tl4 [place] Coma Score: 18:40 Eye Response: spontaneous(4). Motor Response: obeys commands(6). Verbal Response: tl4 oriented(5). Total: 15. MDM: 17:34 Patient medically screened. sb4 19:34 Data reviewed: vital signs, nurses notes, radiologic studies, and as a result, I will sb4 discharge patient. Counseling: I had a detailed discussion with the patient and/or guardian regarding the historical points, exam findings, and any diagnostic results supporting the discharge/admit diagnosis, radiology results, to return to the emergency department if symptoms worsen or persist or if there are any questions or concerns that arise at home. 05/05 17:52 Order name: Shoulder Right (2 View) XRAY; Complete Time: 19:32 sb4 EC:53 Rate is 63 beats/min. Rhythm is regular, Sinus Rhythm with 1st degree heart block. [place] sb4 interval is prolonged at 216 msec. QRS interval is normal at 100 msec. QT interval is normal at 440 msec. No Q waves. T waves are Normal. No ST changes noted. Clinical impression: Abnormal EKG without significant change. Interpreted by me. Reviewed by me. Administered Medications: 18:33 Drug: HYDROcodone-acetaminophen PO 5 mg-325 mg 2 tabs PO once Route: PO; tl4 19:40 Follow up: Response: No adverse reaction; Marked relief of symptoms; Pain is decreased vc1 Disposition: 05/06 07:12 Co-signature as Attending Physician, Kye De Anda MD I reviewed the patient's care rt provided by the Advanced Practice Provider and agree with the diagnosis and treatment plan. Disposition Summary: 05/05/23 19:34 Discharge Ordered Notes: Location: Home sb4 Problem: new sb4 Symptoms: have improved sb4 Condition: Stable sb4 Diagnosis - Pain in right shoulder sb4 Followup: sb4 - With: Emergency Department - When: As needed - Reason: Trouble breathing, Worsening of condition Discharge Instructions: - Discharge Summary Sheet sb4 - Shoulder Pain sb4 Forms: - Thank You Letter sb4 - Patient Portal Instructions sb4 - Leadership Thank You Letter sb4 Signatures: Dispatcher [employer] Kalli Boudreaux, RENEA PAHermes sb4 Kye De Anda MD MD rt Ruben Ruiz RN RN tl4 Syeda Bruce RN vc1
--- NOTE | 2023-05-05 19:35 | ER ---
Nurse's Notes [facility] Name: Geetha Khan Age: 48 yrs Sex: Female : 1975 Arrival Date: 05/05/2023 Time: 17:33 Bed 19 Private MD: Diagnosis: Pain in right shoulder Presentation: 05/05 18:20 Coronavirus screen: At this time, the client does not indicate any symptoms associated tl4 with coronavirus-19. Ebola Screen: No symptoms or risks identified at this time. Initial Sepsis Screen: Does the patient meet any 2 criteria? No. Patient's initial sepsis screen is negative. Does the patient have a suspected source of infection? No. Patient's initial sepsis screen is negative. Risk Assessment: Do you want to hurt yourself or someone else? Patient reports no desire to harm self or others. Onset of symptoms was May 05, 2023 at 14:30. 18:20 Acuity: CORRINA 4 tl4 18:20 Method Of Arrival: EMS: [facility] 18:33 Chief complaint: Patient states: Pt c/o right shoulder pain since being lifted into her tl4 chair. Pt states pain radiates into her chest. Pt denies SOB, nausea, diaphoresis. Pt states she has decreased ROM in right arm. Triage Assessment: 18:39 General: Appears in no apparent distress. Behavior is calm, cooperative. Pain: tl4 Complains of pain in right arm. EENT: No deficits noted. No signs and/or symptoms were reported regarding the EENT system. Neuro: No deficits noted. Denies weakness dizziness, headache. Cardiovascular: No deficits noted. Denies chest pain, diaphoresis, nausea, palpitations. Respiratory: No deficits noted. Denies cough, shortness of breath. GI: No deficits noted. No signs and/or symptoms were reported involving the gastrointestinal system. : No deficits noted. No signs and/or symptoms were reported regarding the genitourinary system. :. Derm: No deficits noted. No signs and/or symptoms reported regarding the dermatologic system. Musculoskeletal: No deficits noted. No signs and/or symptoms reported regarding the musculoskeletal system. 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 - Social history:: Smoking status: Patient reports the use of cigarette tobacco products, smokes one-half pack cigarettes per day. Screenin:41 [facility] ED Fall Risk Assessment (Adult) History of falling in the last 3 months, tl4 including since admission No falls in past 3 months (0 pts) Confusion or Disorientation No (0 pts) Intoxicated or Sedated No (0 pts) Impaired Gait No (0 pts) Mobility Assist Device Used No (0 pt) Altered Elimination No (0 pt) Score/Fall Risk Level 0 - 2 = Low Risk Oriented to surroundings, Maintained a safe environment, Educated pt \T\ family on fall prevention, incl call for assistance when getting out of bed, Assessed \T\ reinforced patient's understanding of fall precautions, Provided non-skid footwear, Hourly rounding (assess needs \T\ fall precautionary measures) done, Used ambulatory aids as needed (educated on \T\ assisted with), Used gait belt as appropriate. Abuse screen: Denies threats or abuse. Denies injuries from another. Nutritional screening: No deficits noted. Tuberculosis screening: No symptoms or risk factors identified. Assessment: 18:42 Reassessment: No changes from previously documented assessment. Patient and/or family tl4 updated on plan of care and expected duration. Pain level reassessed. Patient is alert, oriented x 3, equal unlabored respirations, skin warm/dry/pink. 19:39 Reassessment: No changes from previously documented assessment. Patient and/or family vc1 updated on plan of care and expected duration. Pain level reassessed. Patient is alert, oriented x 3, equal unlabored respirations, skin warm/dry/pink. Vital Signs: 18:20 BP 125 / 81; Pulse 65; Resp 18; Temp 97.7(O); Pulse Ox 100% on R/A; Weight 65.77 kg; tl4 Height 5 ft. 2 in. ; Pain 8/10; 18:40 BP 109 / 74; Pulse 66; Resp 18; Pulse Ox 100% on R/A; tl4 19:39 BP 114 / 75; Pulse 65; Resp 15; Pulse Ox 97% ; vc1 18:20 Body Mass Index 26.52 (65.77 kg, 157.48 cm) tl4 18:20 Pain Scale: Adult tl4 Vitals: 18:40 Cardiac Rhythm Assessment Regular Sinus rhythm. tl4 [place] Coma Score: 18:40 Eye Response: spontaneous(4). Motor Response: obeys commands(6). Verbal Response: tl4 oriented(5). Total: 15. ED Course: 17:34 Patient arrived in ED. sb4 17:34 Kalli Bradshaw PA-C is PHCP. sb4 17:34 Kye De Anda MD is Attending Physician. sb4 18:16 Ruben Ruiz RN is Primary Nurse. tl4 18:21 Triage completed. tl4 18:40 Arm band placed on right wrist. tl4 18:42 No provider procedures requiring assistance completed. Patient did not have IV access tl4 during this emergency room visit. 19:07 Shoulder Right (2 View) XRAY In Process Unspecified. EDMS Administered Medications: 18:33 Drug: HYDROcodone-acetaminophen PO 5 mg-325 mg 2 tabs PO once Route: PO; tl4 19:40 Follow up: Response: No adverse reaction; Marked relief of symptoms; Pain is decreased vc1 Medication: 18:41 VIS not applicable for this client. tl4 Outcome: 19:34 Discharge ordered by . sb4 19:59 Discharged to home via wheelchair, vc1 19:59 Condition: good 19:59 Discharge instructions given to patient, Instructed on discharge instructions, follow up and referral plans. Demonstrated understanding of instructions, follow-up care, 20:02 Patient left the ED. vc1 Signatures: Dispatcher [employer] EDMS Syeda Bruce RN RN vc1 Kalli Bradshaw PA-C PA-C sb4 Ruben Ruiz RN RN tl4
[2023-05-05 20:12] VITALS: BP 114/75; TEMP 97.7; O2SAT 97
--- NOTE | 2023-05-06 10:55 | EKG ---
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
== END ==
LOC: ER 17:33
DX: M25.511 Pain in right shoulder (principal); F17.210 Nicotine dependence, cigarettes, uncomplicated; Z88.6 Allergy status to analgesic agent; Z91.013 Allergy to seafood; Z91.018 Allergy to other foods
CPT/HCPCS: 93005

== ENCOUNTER → 2023-05-07 | Emergency (ER) | payer OTHER ==
[~2023-05-07] MED LIST changes: +ACETAMINOPHEN 500 MG TAB ONE; +ASPIRIN 81 MG CHEWABLE TABLET ONE; -HYDROCODONE/APAP 5/325 MG TAB ONE; +NA CHLORIDE 0.9% 500 ML ONE
--- NOTE | 2023-05-07 20:27 | RAD REPORT ---
EXAM DESCRIPTION: [place] Single View05/07/2023 7:46 pm CLINICAL HISTORY: Chest pain COMPARISON: April 19, 2023 FINDINGS: The lungs appear clear of acute infiltrate. The heart is mildly enlarged IMPRESSION: No acute abnormalities displayed
[2023-05-07 20:31] LABS: Absolute Lymphocytes (CBC) 0.8 K/uL (0.7-4.9); Hematocrit 30.8 % (36.0-45.0); Lymphocytes % 15.6 % (15.3-44.8); MCV 94.3 fL (80-100); MPV 6.5 fL (7.6-11.3); Platelets 221 thou/uL (152-406); RBC Red Blood Cell Count 3.27 M/uL (3.86-4.86)
[2023-05-07 21:01] LABS: Magnesium 1.8 mg/dL (1.6-2.4); Potassium 4.8 mEq/L (3.5-5.1); Troponin High Sensitivity 23.2 pg/mL (<58.9)
--- NOTE | 2023-05-07 23:27 | ER ---
Nurse's Notes [facility] Name: Geetha Khan Age: 48 yrs Sex: Female : 1975 Arrival Date: 05/07/2023 Time: 19:17 Bed Treatment Private MD: Diagnosis: Chest pain, unspecified Presentation: 05/07 19:18 Chief complaint: EMS states: toned out for left sided chest pain and left breast pain. km8 Coronavirus screen: Client denies travel out of the [place] in the last 14 days. Ebola Screen: No symptoms or risks identified at this time. Initial Sepsis Screen:. Risk Assessment: Do you want to hurt yourself or someone else? Patient reports no desire to harm self or others. Onset of symptoms was May 07, 2023. 19:18 Method Of Arrival: EMS: [facility] km8 19:18 Initial Sepsis Screen: Does the patient meet any 2 criteria? No. Patient's initial km8 sepsis screen is negative. Does the patient have a suspected source of infection? No. Patient's initial sepsis screen is negative. 19:18 Acuity: CORRINA 3 km8 Triage Assessment: 19:18 General: Appears in no apparent distress. comfortable, Behavior is calm, cooperative, km8 appropriate for age. Pain: Complains of pain in left breast Pain currently is 10 out of 10 on a pain scale. EENT: No signs and/or symptoms were reported regarding the EENT system. Neuro: Level of Consciousness is awake, alert, obeys commands, Oriented to person, place, time, situation, Appropriate for age left sided weakness due to previous CVA. Cardiovascular: Reports chest pain, Denies shortness of breath, Capillary refill < 3 seconds Patient's skin is warm and dry. Chest pain is described as severe, is located in left anterior. Respiratory: Airway is patent Respiratory effort is even, unlabored, Respiratory pattern is regular, symmetrical. GI: No signs and/or symptoms were reported involving the gastrointestinal system. : No signs and/or symptoms were reported regarding the genitourinary system. Derm: No signs and/or symptoms reported regarding the dermatologic system. Skin is intact, is healthy with good turgor, Skin is dry, Skin is pink, warm \T\ dry. normal, Skin temperature is warm. Musculoskeletal: No signs and/or symptoms reported regarding the musculoskeletal system. 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 Flu vaccine is up to date. - Social history:: Smoking status: Patient reports the use of cigarette tobacco products, smokes one pack cigarettes per day. Patient/guardian denies using alcohol, street drugs. Screenin:18 [facility] ED Fall Risk Assessment (Adult) History of falling in the last 3 months, km8 including since admission Yes- single mechanical fall (1 pt) Confusion or Disorientation No (0 pts) Intoxicated or Sedated No (0 pts) Impaired Gait Yes (1 pt) Mobility Assist Device Used No (0 pt) Altered Elimination No (0 pt) Score/Fall Risk Level 0 - 2 = Low Risk Oriented to surroundings, Maintained a safe environment, Educated pt \T\ family on fall prevention, incl call for assistance when getting out of bed, Assessed \T\ reinforced patient's understanding of fall precautions. Abuse screen: Denies threats or abuse. Denies injuries from another. Nutritional screening: No deficits noted. Tuberculosis screening: No symptoms or risk factors identified. Assessment: 19:18 General: see triage assessment/notes. km8 20:00 Reassessment: Patient appears in no apparent distress at this time. No changes from km8 previously documented assessment. Patient and/or family updated on plan of care and expected duration. Pain level reassessed. Patient is alert, oriented x 3, equal unlabored respirations, skin warm/dry/pink. 21:08 Reassessment: Patient appears in no apparent distress at this time. No changes from km8 previously documented assessment. Patient and/or family updated on plan of care and expected duration. Pain level reassessed. Patient is alert, oriented x 3, equal unlabored respirations, skin warm/dry/pink. 22:00 Reassessment: Patient appears in no apparent distress at this time. No changes from pf1 previously documented assessment. Patient and/or family updated on plan of care and expected duration. Pain level reassessed. Patient is alert, oriented x 3, equal unlabored respirations, skin warm/dry/pink. 23:00 Reassessment: Patient appears in no apparent distress at this time. Patient and/or pf1 family updated on plan of care and expected duration. Pain level reassessed. Patient is alert, oriented x 3, equal unlabored respirations, skin warm/dry/pink. Patient states symptoms have improved. Vital Signs: 19:18 BP 125 / 78; Pulse 74; Resp 16; Temp 98.1(TE); Pulse Ox 97% on R/A; Weight 65.77 kg km8 (R); Height 5 ft. 2 in. (R); Pain 10/10; 20:00 BP 124 / 63; Pulse 75; Resp 16; Pulse Ox 99% on R/A; pf1 21:00 BP 112 / 71; Pulse 72; Resp 15; Pulse Ox 97% on R/A; pf1 22:00 BP 119 / 84; Pulse 75; Resp 16; Pulse Ox 97% on R/A; pf1 23:00 BP 121 / 91; Pulse 80; Resp 16; Pulse Ox 100% ; Pain 7/10; pf1 19:18 Body Mass Index 26.52 (65.77 kg, 157.48 cm) km8 19:18 Pain Scale: Adult km8 23:00 Pain Scale: Adult pf1 [place] Coma Score: 19:18 Eye Response: spontaneous(4). Motor Response: obeys commands(6). Verbal Response: km8 oriented(5). Total: 15. ED Course: 19:18 Patient arrived in ED. km8 19:18 Kathy Kerns FNP-C [facility]. kb 19:18 Kye De Anda MD is Attending Physician. kb 19:18 No provider procedures requiring assistance completed. Patient maintains SpO2 km8 saturation greater than 95% on room air. 19:18 Arm band placed on right wrist. km8 19:18 Patient has correct armband on for positive identification. Bed in low position. Call km8 light in reach. Side rails up X2. Client placed on continuous cardiac and pulse oximetry monitoring. NIBP monitoring applied. Door closed. Lights dimmed. Warm blanket given. Pillow given. 19:48 XRAY Chest (1 view) In Process Unspecified. EDMS 20:18 Basic Metabolic Panel Sent. km8 20:18 CBC with Diff Sent. km8 20:18 Magnesium Sent. km8 20:18 NT PRO-BNP Sent. km8 20:18 Troponin HS Sent. km8 20:18 Inserted saline lock: 22 gauge in right antecubital area, using aseptic technique. km8 Blood collected. 20:21 Triage completed. km8 22:32 Troponin High Sensitivity Sent. pf1 23:36 IV discontinued, intact, bleeding controlled, No redness/swelling at site. Pressure ap3 dressing applied. 23:36 Provided Education on: discharge instructions. ap3 Administered Medications: 20:11 Not Given (Patient Refused): aspirinchewable tablet 324 mg PO once; 81 mg tablets x 4 km8 23:22 Drug: NS 0.9% IV 500 ml IV at bolus once Route: IV; Rate: bolus; Site: right pf1 antecubital; 23:35 Follow up: IV Status: Completed infusion; IV Intake: 100ml ap3 23:22 Drug: Acetaminophen PO 1000 mg PO once Route: PO; pf1 23:35 Follow up: Response: No adverse reaction; Pain is decreased ap3 Medication: 19:18 VIS not applicable for this client. km8 Intake: 23:35 IV: 100ml; Total: 100ml. ap3 Outcome: 23:26 Discharge ordered by . kb 23:35 Discharged to home via wheelchair, with family, ap3 23:35 Condition: good 23:35 Discharge instructions given to patient, Instructed on discharge instructions, follow up and referral plans. Demonstrated understanding of instructions, follow-up care, 23:36 Patient left the ED. ap3 Signatures: Dispatcher [employer] EDMS Kathy Kerns, Anayeli Cohn RN RN ap3 Maddy Gar RN RN pf1 Mary Coker RN RN km8 Corrections: (The following items were deleted from the chart) 19:41 19:41 Aspirin PO Chewable Tablet 324 mg PO km8 km8
--- NOTE | 2023-05-07 23:27 | EDPHYS ---
Physician Documentation [facility] Name: Geetha Khan Age: 48 yrs Sex: Female : 1975 Arrival Date: 05/07/2023 Time: 19:17 Bed Treatment Private MD: ED Physician Kye De Anda HPI: 05/07 22:40 This 48 yrs old Female presents to ER via EMS with complaints of Chest pain. kb 22:40 Patient is a 48-year-old female who presents for chest pain on the left side that kb started 1 hour prior to arrival while having an argument with her sister. Also reports left breast pain that started yesterday. Reports breast pain is worse with palpation. Denies shortness of breath, nausea, vomiting, fever, cough, congestion.. 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 Flu vaccine is up to date. - Social history:: Smoking status: Patient reports the use of cigarette tobacco products, smokes one pack cigarettes per day. Patient/guardian denies using alcohol, street drugs. ROS: 22:40 Constitutional: Negative for fever, chills, and weight loss, ENT: Negative for injury, kb pain, and discharge, Respiratory: Negative for shortness of breath, cough, wheezing, and pleuritic chest pain, Abdomen/GI: Negative for abdominal pain, nausea, vomiting, diarrhea, and constipation, MS/Extremity: Negative for injury and deformity, Skin: Negative for injury, rash, and discoloration, Neuro: Negative for headache, weakness, numbness, tingling, and seizure, 22:40 Cardiovascular: Positive for chest pain, Exam: 22:40 Constitutional: This is a well developed, well nourished patient who is awake, alert, kb and in no acute distress. Head/Face: Normocephalic, atraumatic. ENT: Moist Mucous membranes Cardiovascular: Regular rate Respiratory: Respirations even and unlabored. No increased work of breathing. Talking in full sentences Abdomen/GI: Soft, non-tender. No distention Skin: Warm, dry with normal turgor. Normal color. MS/ Extremity: Pulses equal, no cyanosis. Neurovascular intact. Full, normal range of motion. Neuro: Awake and alert, GCS 15, oriented to person, place, time, and situation. Moves all extremities. Normal gait. 22:40 Chest/axilla: Inspection: normal, Palpation: tenderness, that is moderate, of the left breast, that totally reproduces the patient's complaints, Vital Signs: 19:18 BP 125 / 78; Pulse 74; Resp 16; Temp 98.1(TE); Pulse Ox 97% on R/A; Weight 65.77 kg km8 (R); Height 5 ft. 2 in. (R); Pain 10/10; 20:00 BP 124 / 63; Pulse 75; Resp 16; Pulse Ox 99% on R/A; pf1 21:00 BP 112 / 71; Pulse 72; Resp 15; Pulse Ox 97% on R/A; pf1 22:00 BP 119 / 84; Pulse 75; Resp 16; Pulse Ox 97% on R/A; pf1 23:00 BP 121 / 91; Pulse 80; Resp 16; Pulse Ox 100% ; Pain 7/10; pf1 19:18 Body Mass Index 26.52 (65.77 kg, 157.48 cm) km8 19:18 Pain Scale: Adult km8 23:00 Pain Scale: Adult pf1 [place] Coma Score: 19:18 Eye Response: spontaneous(4). Motor Response: obeys commands(6). Verbal Response: km8 oriented(5). Total: 15. MDM: 19:18 Patient medically screened. kb 22:41 Differential diagnosis: abnormal EKG, acute myocardial infarction, anxiety, coronary kb artery disease chest wall pain. The patient was given aspirin in the Emergency Department. Data reviewed: vital signs, nurses notes. Historians other than the Patient: EMS: [facility]. 23:24 Consideration of Admission/Observation Escalation of care including kb admission/observation considered. admission considered for chest pain, but serial troponins normal. Pt has been here multiple times for similar complaints. . Counseling: I had a detailed discussion with the patient and/or guardian regarding the historical points, exam findings, and any diagnostic results supporting the discharge/admit diagnosis, lab results, radiology results, the need for outpatient follow up, a family practitioner, to return to the emergency department if symptoms worsen or persist or if there are any questions or concerns that arise at home. 05/07 19:25 Order name: Basic Metabolic Panel; Complete Time: 21:04 kb 05/07 19:25 Order name: CBC with Diff; Complete Time: 20:39 kb 05/07 19:25 Order name: Magnesium; Complete Time: 21:04 kb 05/07 19:25 Order name: NT PRO-BNP; Complete Time: 21:04 kb 05/07 19:25 Order name: Troponin HS; Complete Time: 21:04 kb 05/07 21:59 Order name: Troponin High Sensitivity; Complete Time: 23:08 kb 05/07 19:25 Order name: XRAY Chest (1 view); Complete Time: 20:39 kb 05/07 19:25 Order name: EKG; Complete Time: 19:25 kb 05/07 19:25 Order name: Cardiac monitoring; Complete Time: 19:39 kb 05/07 19:25 Order name: EKG - Nurse/Tech; Complete Time: 19:39 kb 05/07 19:25 Order name: IV Saline Lock; Complete Time: 20:18 kb 05/07 19:25 Order name: Labs collected and sent; Complete Time: 20:18 kb 05/07 19:25 Order name: O2 Per Protocol; Complete Time: 19:39 kb 05/07 19:25 Order name: O2 Sat Monitoring; Complete Time: 19:39 kb Administered Medications: 20:11 Not Given (Patient Refused): aspirinchewable tablet 324 mg PO once; 81 mg tablets x 4 km8 23:22 Drug: NS 0.9% IV 500 ml IV at bolus once Route: IV; Rate: bolus; Site: right pf1 antecubital; 23:35 Follow up: IV Status: Completed infusion; IV Intake: 100ml ap3 23:22 Drug: Acetaminophen PO 1000 mg PO once Route: PO; pf1 23:35 Follow up: Response: No adverse reaction; Pain is decreased ap3 Disposition Summary: 05/07/23 23:26 Discharge Ordered Notes: Location: Home kb Condition: Stable kb Diagnosis - Chest pain, unspecified kb Followup: kb - With: Emergency Department - When: As needed - Reason: Worsening of condition Followup: kb - With: Private Physician - When: 2 - 3 days - Reason: Recheck today's complaints, Continuance of care, Re-evaluation by your physician Discharge Instructions: - Discharge Summary Sheet kb - Nonspecific Chest Pain, Adult, [id number] kb Forms: - Medication Reconciliation Form kb - Thank You Letter kb - Antibiotic Education kb - Prescription Opioid Use kb - Patient Portal Instructions kb - Leadership Thank You Letter kb Signatures: Dispatcher [employer] EDMS Kathy Kerns, BOSS MINER-C BOSS MINER-Maddy Patel, RN RN pf1 Mary Coker RN RN km8 Anayeli Chandra RN ap3
[2023-05-07 23:54] VITALS: BP 119/84; TEMP 98.1; O2SAT 97
== END ==
LOC: ER 19:17
DX: R07.9 Chest pain, unspecified (principal); J44.9 Chronic obstructive pulmonary disease, unspecified; I10 Essential (primary) hypertension; F17.210 Nicotine dependence, cigarettes, uncomplicated; Z88.6 Allergy status to analgesic agent; Z91.013 Allergy to seafood; Z91.018 Allergy to other foods
CPT/HCPCS: 85025; 80048; 36415; 83735; 84484 ×2; 83880; 71045; J7040; 93005

== ENCOUNTER → 2023-06-01 | Emergency (ER) | payer OTHER ==
[2023-06-01 15:08] LABS: Hematocrit 33.1 % (36.0-45.0); Hemoglobin 11.6 g/dL (12.0-15.0); MCH 32.5 pg (27.0-35.0); MCHC 34.9 g/dL (32.0-36.0); MCV 93.1 fL (80-100); Platelets 163 thou/uL (152-406); RBC Red Blood Cell Count 3.56 M/uL (3.86-4.86); Red Cell Distribution Width 12.7 % (12.1-15.2)
[2023-06-01 15:09] LABS: Absolute Eosinophils 0.1 K/uL (0-0.5); Absolute Lymphocytes (CBC) 1.4 K/uL (0.7-4.9); Absolute Monocytes 0.3 K/uL (0.1-1.3); Absolute Neutrophil 2.9 K/uL (1.8-8.0); Eosinophils % 1.9 % (0-4.4); Lymphocytes % 29.2 % (15.3-44.8); MPV 6.7 fL (7.6-11.3); Monocytes % 5.7 % (3.3-12.3); Neutrophils % 62.2 % (41.7-73.7)
[2023-06-01 15:31] LABS: Anion Gap 13.8 mEq/L (5.0-15.0); Potassium 5.8 mEq/L (3.5-5.1); Troponin High Sensitivity 54.2 pg/mL (<58.9)
--- NOTE | 2023-06-01 15:40 | RAD REPORT ---
EXAM DESCRIPTION: RAD - Chest Single View - 06/01/2023 3:32 pm CLINICAL HISTORY: CHEST PAIN Chest pain. COMPARISON: Chest Single View dated 05/21/2023; Chest Single View dated 05/17/2023; Chest Single View [place] 05/07/2023; Chest Single View dated 04/19/2023 FINDINGS: Portable technique limits examination quality. The lungs are grossly clear. The heart is normal in size. No displaced fractures. IMPRESSION: No acute intrathoracic process suspected.
--- NOTE | 2023-06-01 16:51 | ER ---
Nurse's Notes [facility] Name: Geetha Khan Age: 48 yrs Sex: Female : 1975 Arrival Date: 06/01/2023 Time: 14:42 Bed 4 Private MD: Diagnosis: acute chest pain Presentation: 05/31 14:48 Chief complaint: EMS states: toned out to patient home for chest pain. Coronavirus ld1 screen: At this time, the client does not indicate any symptoms associated with coronavirus-19. Ebola Screen: No symptoms or risks identified at this time. Initial Sepsis Screen: Does the patient meet any 2 criteria? No. Patient's initial sepsis screen is negative. Does the patient have a suspected source of infection? No. Patient's initial sepsis screen is negative. Risk Assessment: Do you want to hurt yourself or someone else? Patient reports no desire to harm self or others. Onset of symptoms was June 01, 2023. 14:48 Method Of Arrival: EMS: [facility] ld1 14:48 Acuity: CORRINA 3 ld1 Triage Assessment: 14:48 General: Appears in no apparent distress. comfortable, Behavior is calm, cooperative, ld1 appropriate for age. Pain: Complains of pain in chest Pain does not radiate. Pain currently is 7 out of 10 on a pain scale. Quality of pain is described as throbbing, Pain began suddenly, Is continuous. EENT: EENT: No signs and/or symptoms were reported regarding the EENT system. Neuro: Level of Consciousness is awake, alert, obeys commands, Oriented to person, place, time, situation. Cardiovascular: Capillary refill < 3 seconds Patient's skin is warm and dry. Respiratory: Airway is patent Respiratory effort is even, unlabored. GI: Abdomen is flat, non-distended. : No signs and/or symptoms were reported regarding the genitourinary system. Derm: No signs and/or symptoms reported regarding the dermatologic system. Musculoskeletal: No signs and/or symptoms reported regarding the musculoskeletal system. 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 - Social history:: Smoking status: Patient denies any tobacco usage or history of. Patient/guardian denies using alcohol. Screenin:58 [facility] ED Fall Risk Assessment (Adult) History of falling in the last 3 months, ld1 including since admission No falls in past 3 months (0 pts). Abuse screen: Denies threats or abuse. Denies injuries from another. Nutritional screening: No deficits noted. Tuberculosis screening: No symptoms or risk factors identified. Assessment: 14:58 Reassessment: See triage assessment. ld1 15:28 Reassessment: Patient appears in no apparent distress at this time. Patient and/or ld1 family updated on plan of care and expected duration. Pain level reassessed. 16:12 Reassessment: Patient appears in no apparent distress at this time. Patient and/or ld1 family updated on plan of care and expected duration. Pain level reassessed. 16:55 Reassessment: No changes from previously documented assessment. Patient and/or family mb9 updated on plan of care and expected duration. Pain level reassessed. Patient is alert, oriented x 3, equal unlabored respirations, skin warm/dry/pink. Vital Signs: 14:48 BP 150 / 116; Pulse 82; Resp 18; Temp 98.2(TE); Pulse Ox 100% on R/A; Weight 67.13 kg; ld1 Height 5 ft. 4 in. ; Pain 7/10; 14:58 BP 143 / 108; Pulse 82; Resp 24; Pulse Ox 100% on R/A; ld1 16:12 BP 157 / 93; Pulse 84; Resp 20; Pulse Ox 100% on R/A; ld1 16:55 BP 145 / 89; Pulse 80; Resp 18; Pulse Ox 100% on R/A; mb9 14:48 Body Mass Index 25.40 (67.13 kg, 162.56 cm) ld1 14:48 Pain Scale: Adult ld1 ED Course: 14:43 Patient arrived in ED. sb4 14:46 Na Adame MD is Attending Physician. cp3 14:47 Rita Hoyos, RN is Primary Nurse. ld1 14:47 Arm band placed on. mb9 14:47 Placed in gown. Bed in low position. Call light in reach. Side rails up X 1. Client mb9 placed on continuous cardiac and pulse oximetry monitoring. NIBP monitoring applied. journalism teacher on. Door closed. Noise minimized. Warm blanket given. 14:50 Triage completed. ld1 14:52 Missed attempt(s): 20 gauge in right antecubital area. ld1 14:54 Inserted saline lock: 22 gauge in left antecubital area, using aseptic technique. Blood mb9 collected. 14:58 No provider procedures requiring assistance completed. ld1 15:12 EKG done, by ED staff, reviewed by Na Adame MD. mc5 15:34 XRAY Chest (1 view) In Process Unspecified. EDMS 16:12 Warm blanket given. ld1 16:42 Repositioned patient. Cleaned of incontinence. Linen changed. mb9 16:56 IV discontinued, intact, bleeding controlled, No redness/swelling at site. Pressure mb9 dressing applied. Administered Medications: No medications were administered Medication: 14:58 VIS not applicable for this client. ld1 Outcome: 16:51 Discharge ordered by . cp3 16:56 Discharged to home via wheelchair, with family, mb9 16:56 Condition: stable 16:56 Discharge instructions given to patient, Instructed on discharge instructions, follow up and referral plans. Demonstrated understanding of instructions, follow-up care, 16:56 Patient left the ED. mb9 Signatures: Dispatcher [employer] EDMS Na Adame MD MD cp3 Sims, Lauren, RN RN ld1 Kalli Bradshaw PA-C PAHermes sb4 Clair Jorge RN RN mb9 Lily Baig 5
--- NOTE | 2023-06-01 16:51 | EDPHYS ---
Physician Documentation [facility] Name: Geetha Khan Age: 48 yrs Sex: Female : 1975 Arrival Date: 06/01/2023 Time: 14:42 Bed 4 Private MD: ED Physician Na Adame HPI: 05/31 15:07 This 48 yrs old Female presents to ER via EMS with complaints of Chest Pain. cp3 15:07 Patient is a 48-year-old female with a history of CVA, COPD with residual left-sided cp3 deficits who presents to the ED secondary to substernal chest discomfort that started roughly 3 hours prior to arrival. No nausea, vomiting, diaphoresis, shortness of breath, cough patient. 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 - Social history:: Smoking status: Patient denies any tobacco usage or history of. Patient/guardian denies using alcohol. ROS: 15:07 Constitutional: Negative for fever, chills, and weight loss, Eyes: Negative for injury, cp3 pain, redness, and discharge, ENT: Negative for injury, pain, and discharge, Neck: Negative for injury, pain, and swelling, Cardiovascular: Negative for chest pain, palpitations, and edema, Respiratory: Negative for shortness of breath, cough, wheezing, and pleuritic chest pain, Abdomen/GI: Negative for abdominal pain, nausea, vomiting, diarrhea, and constipation, Back: Negative for injury and pain, : Negative for injury, bleeding, discharge, and swelling, MS/Extremity: Negative for injury and deformity, Skin: Negative for injury, rash, and discoloration, Neuro: Negative for headache, weakness, numbness, tingling, and seizure, Psych: Negative for depression, anxiety, suicide ideation, homicidal ideation, and hallucinations, Allergy/Immunology: Negative for hives, rash, and allergies, Endocrine: Negative for neck swelling, polydipsia, polyuria, polyphagia, and marked weight changes, Hematologic/Lymphatic: Negative for swollen nodes, abnormal bleeding, and unusual bruising, 15:07 Cardiovascular: Positive for chest pain, Exam: 15:07 Constitutional: This is a well developed, well nourished patient who is awake, alert, cp3 and in no acute distress. Head/Face: Normocephalic, atraumatic. Eyes: Pupils equal round and reactive to light, extra-ocular motions intact. Lids and lashes normal. Conjunctiva and sclera are non-icteric and not injected. Cornea within normal limits. Periorbital areas with no swelling, redness, or edema. ENT: Nares patent. No nasal discharge, no septal abnormalities noted. Tympanic membranes are normal and external auditory canals are clear. Oropharynx with no redness, swelling, or masses, exudates, or evidence of obstruction, uvula midline. Mucous membranes moist. Neck: Trachea midline, no thyromegaly or masses palpated, and no cervical lymphadenopathy. Supple, full range of motion without nuchal rigidity, or vertebral point tenderness. No Meningismus. Chest/axilla: Normal chest wall appearance and motion. Nontender with no deformity. No lesions are appreciated. Cardiovascular: Regular rate and rhythm with a normal S1 and S2. No gallops, murmurs, or rubs. Normal PMI, no JVD. No pulse deficits. Respiratory: Lungs have equal breath sounds bilaterally, clear to auscultation and percussion. No rales, rhonchi or wheezes noted. No increased work of breathing, no retractions or nasal flaring. Abdomen/GI: Soft, non-tender, with normal bowel sounds. No distension or tympany. No guarding or rebound. No evidence of tenderness throughout. Back: No spinal tenderness. No costovertebral tenderness. Full range of motion. MS/ Extremity: Pulses equal, no cyanosis. Neurovascular intact. Full, normal range of motion. 15:07 Neuro: Patient with left upper and left lower extremity weakness at baseline, patient with rightward gaze which is baseline, patient does not ambulate which is baseline, Vital Signs: 14:48 BP 150 / 116; Pulse 82; Resp 18; Temp 98.2(TE); Pulse Ox 100% on R/A; Weight 67.13 kg; ld1 Height 5 ft. 4 in. ; Pain 7/10; 14:58 BP 143 / 108; Pulse 82; Resp 24; Pulse Ox 100% on R/A; ld1 16:12 BP 157 / 93; Pulse 84; Resp 20; Pulse Ox 100% on R/A; ld1 16:55 BP 145 / 89; Pulse 80; Resp 18; Pulse Ox 100% on R/A; mb9 14:48 Body Mass Index 25.40 (67.13 kg, 162.56 cm) ld1 14:48 Pain Scale: Adult ld1 MDM: 14:46 Patient medically screened. cp3 15:07 Differential diagnosis: acute myocardial infarction, coronary artery disease congestive cp3 heart failure pleurisy, pneumonia, pneumothorax. Data reviewed: vital signs, nurses notes, lab test result(s), EKG, radiologic studies, plain films. Consideration of Admission/Observation Escalation of care including admission/observation considered. Independent interpretation of the following test(s) in the Emergency Department EKG: See my EKG interpretation above surveillance monitor: rate 82, sinus rhythm. ED course: 1237- ekg interpreted by me, no evidence of acute mi, rate 80. 05/31 14:55 Order name: Basic Metabolic Panel; Complete Time: 16:07 05/31 14:55 Order name: CBC with Diff; Complete Time: 16:07 05/31 14:55 Order name: Troponin HS; Complete Time: 16:07 05/31 14:55 Order name: XRAY Chest (1 view); Complete Time: 16:07 05/31 14:55 Order name: EKG; Complete Time: 14:56 05/31 14:55 Order name: Cardiac monitoring; Complete Time: 14:56 05/31 14:55 Order name: EKG - Nurse/Tech; Complete Time: 14:56 05/31 14:55 Order name: IV Saline Lock; Complete Time: 14:56 05/31 14:55 Order name: Labs collected and sent; Complete Time: 14:59 05/31 14:55 Order name: O2 Per Protocol; Complete Time: 14:56 ld1 05/31 14:55 Order name: O2 Sat Monitoring; Complete Time: 14:56 ld1 Administered Medications: No medications were administered Disposition Summary: 06/01/23 16:51 Discharge Ordered Notes: Location: Home cp3 Condition: Stable cp3 Diagnosis - acute chest pain cp3 Discharge Instructions: - Discharge Summary Sheet cp3 - Nonspecific Chest Pain, Adult cp3 Forms: - Medication Reconciliation Form cp3 - Thank You Letter cp3 - Antibiotic Education cp3 - Prescription Opioid Use cp3 - Patient Portal Instructions cp3 - Leadership Thank You Letter cp3 Signatures: Dispatcher [employer] Na Dumont MD MD cp3 Rita Hoyos RN RN ld1 Clair Jorge RN RN mb9
[2023-06-01 17:17] VITALS: BP 145/89; TEMP 98.2; O2SAT 100
--- NOTE | 2023-06-04 14:14 | EKG ---
Test Date: 2023-06-01 Test Time: 13:44:45 Butt Trimmer: PIERRE MEASUREMENT RESULTS: Intervals: Rate: 80 MO: 222 QRSD: 100 QT: 382 QTc: 440 Gay: P: 58 MO: 222 QRS: -3 T: 150 INTERPRETIVE STATEMENTS: Sinus rhythm with 1st degree AV block Left ventricular hypertrophy with repolarization abnormality Abnormal ECG Compared to ECG 05/21/2023 01:13:06 First degree AV block now present Electronically Signed On 06-04-23 14:07:37 CDT by Josse Olson
== END ==
LOC: ER 14:42
DX: R07.89 Other chest pain (principal); I10 Essential (primary) hypertension; I25.2 Old myocardial infarction; J44.9 Chronic obstructive pulmonary disease, unspecified; Z88.6 Allergy status to analgesic agent; Z91.013 Allergy to seafood; Z91.018 Allergy to other foods; Z86.73 Personal history of transient ischemic attack (TIA), and cerebral infarction without residual deficits
CPT/HCPCS: 36415; 71045; 80048; 84484; 85025; 93005; 99285

== ENCOUNTER → 2023-06-03 | Emergency (ER) | payer OTHER ==
[~2023-06-03] MED LIST changes: -ACETAMINOPHEN 500 MG TAB ONE; -ASPIRIN 81 MG CHEWABLE TABLET ONE; -NA CHLORIDE 0.9% 500 ML ONE; +NITROGLYCERIN 0.4 MG/TAB SL ONE
[2023-06-03 17:35] LABS: Absolute Basophils 0.1 K/uL (0-0.5); Absolute Eosinophils 0.1 K/uL (0-0.5); Absolute Lymphocytes (CBC) 1.2 K/uL (0.7-4.9); Absolute Monocytes 0.5 K/uL (0.1-1.3); Absolute Neutrophil 9.1 K/uL (1.8-8.0); Basophils % 0.5 % (0-1.3); Eosinophils % 0.8 % (0-4.4); Hematocrit 34.4 % (36.0-45.0); Hemoglobin 12.2 g/dL (12.0-15.0); MCH 32.7 pg (27.0-35.0); MCHC 35.5 g/dL (32.0-36.0); MPV 6.8 fL (7.6-11.3); Monocytes % 4.8 % (3.3-12.3); Neutrophils % 82.9 % (41.7-73.7); Platelets 188 thou/uL (152-406); RBC Red Blood Cell Count 3.74 M/uL (3.86-4.86); Red Cell Distribution Width 12.9 % (12.1-15.2)
[2023-06-03 17:39] LABS: Protime INR 1.09
--- NOTE | 2023-06-03 17:46 | ER ---
Nurse's Notes 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 Coronavirus screen: Client denies ll1 travel out of the [place] in the last 14 days. At this time, the client does not indicate any symptoms associated with coronavirus-19. Ebola Screen: Patient denies travel to an Ebola-affected area in the 21 days before illness onset. Initial Sepsis Screen: Does the patient meet any 2 criteria? No. Patient's initial sepsis screen is negative. Does the patient have a suspected source of infection? No. Patient's initial sepsis screen is negative. Risk Assessment: Do you want to hurt yourself or someone else? Patient reports no desire to harm self or others. Onset of symptoms was June 03, 2023. 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 - Social history:: Smoking status: Patient reports the use of cigarette tobacco products, smokes one-half pack cigarettes per day. Screenin:49 [facility] ED Fall Risk Assessment (Adult) History of falling in the last 3 months, ll1 including since admission No falls in past 3 months (0 pts) Confusion or Disorientation No (0 pts) Intoxicated or Sedated No (0 pts) Impaired Gait Yes (1 pt) Mobility Assist Device Used Yes (1 pt) Altered Elimination Yes (1 pt) Score/Fall Risk Level 3 or more points = High Risk Maintained a safe environment, Hourly rounding (assess needs \T\ fall precautionary measures) done. Abuse screen: Denies threats or abuse. Nutritional screening: No deficits noted. Tuberculosis screening: No symptoms or risk factors identified. Assessment: 16:58 General: Appears uncomfortable, Behavior is calm, cooperative, appropriate for age. ll1 Pain: Complains of pain in chest Pain radiates to R shoulder Pain currently is 10 out of 10 on a pain scale. Cardiovascular: Reports chest pain. 17:46 Reassessment: No changes from previously documented assessment. Patient and/or family ll1 updated on plan of care and expected duration. Pain level reassessed. Patient is alert, oriented x 3, equal unlabored respirations, skin warm/dry/pink. Patient states feeling better. 18:40 Pain: Pain began 2 hours ago. ll1 Vital Signs: 16:56 BP 124 / 106; Pulse 83; Resp 18; Temp 98; Pulse Ox 97% on R/A; Weight 68.04 kg; Height ll1 5 ft. 2 in. ; Pain 10/10; 17:10 BP 137 / 108; Pulse 94; Pulse Ox 97% on R/A; ll1 17:30 BP 121 / 100; Pulse 99; Resp 17; Pulse Ox 99% ; ll1 16:56 Body Mass Index 27.44 (68.04 kg, 157.48 cm) ll1 16:56 Pain Scale: Adult ll1 ED Course: 16:56 Patient arrived in ED. ll1 16:56 Kalli Bradshaw PA[facility]C [facility]. sb4 16:56 Russell Rodriguez MD is Attending Physician. sb4 16:58 Triage completed. ll1 16:58 Arm band placed on Patient placed in an exam room, on a stretcher. ll1 17:00 Ruth East, YANETH is Primary Nurse. ll1 17:00 Provided Education on: ER procedures and process. ll1 17:00 No provider procedures requiring assistance completed. Inserted saline lock: 22 gauge ll1 in right antecubital area, using aseptic technique. Blood collected. Patient maintains SpO2 saturation greater than 95% on room air. 17:37 XRAY Chest (1 view) In Process Unspecified. EDMS 17:45 IV discontinued, intact, bleeding controlled, No redness/swelling at site. Pressure ll1 dressing applied. 17:49 Josse Olson MD is Referral Physician. sb4 18:40 Patient has correct armband on for positive identification. Bed in low position. Client ll1 placed on continuous cardiac and pulse oximetry monitoring. NIBP monitoring applied. monitoring coordinator on. Administered Medications: 17:25 Drug: Nitroglycerin Sublingual 0.4 mg Sublingual once; every five minute if needed x3 ll1 Route: Sublingual; 17:39 Drug: Nitroglycerin Sublingual 0.4 mg Sublingual once; every five minute if needed x3 ll1 Route: Sublingual; 18:41 Follow up: Response: No adverse reaction ll1 Medication: 18:40 VIS not applicable for this client. ll1 Outcome: 17:46 Patient left the ED. ll1 17:49 Discharge ordered by MD. sb4 17:49 Discharged to home via wheelchair, ll1 17:49 Condition: stable 17:49 Discharge instructions given to patient, Instructed on discharge instructions, follow up and referral plans. Demonstrated understanding of instructions, follow-up care, 17:50 Patient left the ED. sb4 Signatures: Dispatcher [employer] Ruth Martinez RN RN ll1 Kalli Bradshaw, PA-C PA-C sb4
--- NOTE | 2023-06-03 17:47 | EDPHYS ---
Physician Documentation [facility] Name: Geetha Khan Age: 48 yrs Sex: Female : 1975 Arrival Date: 06/03/2023 Time: 16:51 Bed 2 Private MD: ED Physician Russell Rodriguez HPI: 06/02 17:00 This 48 yrs old Female presents to ER via EMS with complaints of Chest Pain. sb4 17:00 Patient presents via EMS with complaints of left-sided substernal chest pain. Patient sb4 was seen here 2 days ago for chest pain had a negative workup. I asked patient if she was having chest pain she said "always"no alleviating or aggravating factors. No other associated signs or symptoms. 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 - Social history:: Smoking status: Patient reports the use of cigarette tobacco products, smokes one-half pack cigarettes per day. ROS: 17:00 Constitutional: Negative for fever, chills, and weight loss, sb4 17:00 Cardiovascular: Positive for chest pain, 17:00 All other systems are negative, Exam: 17:00 Head/Face: Normocephalic, atraumatic. Eyes: Extra-ocular motions intact. Periorbital sb4 areas with no swelling, redness, or edema. ENT: Mucous membranes moist. Cardiovascular: Regular rate and rhythm with a normal S1 and S2. Respiratory: Lungs have equal breath sounds bilaterally, clear to auscultation and percussion. No rales, rhonchi or wheezes noted. No increased work of breathing, no retractions or nasal flaring. Abdomen/GI: Soft, non-tender, no distension. Skin: Warm, dry with normal turgor. Normal color with no rashes, no lesions, and no evidence of cellulitis. MS/ Extremity: Pulses equal, no cyanosis. Neurovascular intact. Full, normal range of motion. 17:00 Constitutional: The patient appears in no acute distress, alert, awake, smells of urine, 17:00 Special observations: no evidence of discomfort, Vital Signs: 16:56 BP 124 / 106; Pulse 83; Resp 18; Temp 98; Pulse Ox 97% on R/A; Weight 68.04 kg; Height ll1 5 ft. 2 in. ; Pain 10/10; 17:10 BP 137 / 108; Pulse 94; Pulse Ox 97% on R/A; ll1 17:30 BP 121 / 100; Pulse 99; Resp 17; Pulse Ox 99% ; ll1 16:56 Body Mass Index 27.44 (68.04 kg, 157.48 cm) ll1 16:56 Pain Scale: Adult ll1 MDM: 16:56 Patient medically screened. sb4 17:46 Data reviewed: vital signs, nurses notes, lab test result(s), EKG, radiologic studies, sb4 I have discussed the patient's presentation/case with the attending Emergency Department Physician; and as a result, I will discharge patient. 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 Refusal of service: The patient/guardian displays adequate decision making capability and despite a detailed discussion of alternatives, benefits, risks, and consequences refuses: staying for completion of work up. ED course: Patient requested to sign out AMA because she comes here all the time and we "never find anything"I urged her to stay until her workup was completed but she declined. Instructed her to come back with any new or worsening symptoms and to follow-up with cardiology as soon as possible. 18:21 ED course: Troponin came back elevated at 73.3. Attempted to contact patient via phone sb4 to notify of the results. 06/02 17:00 Order name: Basic Metabolic Panel sb4 06/02 17:00 Order name: CBC with Diff; Complete Time: 17:38 sb4 06/02 17:00 Order name: LFT's sb4 06/02 17:00 Order name: Magnesium sb4 06/02 17:00 Order name: NT PRO-BNP sb4 06/02 17:00 Order name: PT-INR; Complete Time: 17:42 sb4 06/02 17:00 Order name: Troponin HS sb4 06/02 17:00 Order name: XRAY Chest (1 view) sb4 06/02 17:00 Order name: EKG; Complete Time: 17:00 sb4 06/02 17:00 Order name: Cardiac monitoring; Complete Time: 17:25 sb4 06/02 17:00 Order name: EKG - Nurse/Tech; Complete Time: 17:25 sb4 06/02 17:00 Order name: IV Saline Lock; Complete Time: 17:11 sb4 06/02 17:00 Order name: Labs collected and sent; Complete Time: 17:11 sb4 06/02 17:00 Order name: O2 Per Protocol; Complete Time: 17:00 sb4 06/02 17:00 Order name: O2 Sat Monitoring; Complete Time: 17:00 sb4 EC:30 Rate is 93 beats/min. Rhythm is regular, Sinus Rhythm. SD interval is normal at 174 sb4 msec. QRS interval is normal at 98 msec. QT interval is normal at [address] changes noted. Clinical impression: Abnormal EKG without significant change. Interpreted by me. Reviewed by me. Administered Medications: 17:25 Drug: Nitroglycerin Sublingual 0.4 mg Sublingual once; every five minute if needed x3 ll1 Route: Sublingual; 17:39 Drug: Nitroglycerin Sublingual 0.4 mg Sublingual once; every five minute if needed x3 ll1 Route: Sublingual; 18:41 Follow up: Response: No adverse reaction ll1 Disposition Summary: 06/03/23 17:49 Discharge Ordered Notes: Location: Home(06/03/23 17:49) sb4 Problem: an ongoing problem sb4 Symptoms: are unchanged sb4 Condition: Stable(06/03/23 17:49) sb4 Diagnosis - Chest pain, unspecified sb4 Followup: sb4 - With: Emergency Department - When: As needed - Reason: Trouble breathing, Worsening of condition Followup: sb4 - With: Josse Olson MD - When: Tomorrow - Reason: Further diagnostic work-up, Recheck today's complaints, Re-evaluation by your physician Forms: - Medication Reconciliation Form sb4 - Thank You Letter sb4 - Antibiotic Education sb4 - Prescription Opioid Use sb4 - Patient Portal Instructions sb4 - Leadership Thank You Letter sb4 Addendum: 06/04/2023 19:00 I was immediately available for consultation during this patient's visit. I did not e c2 personally see the patient or discuss the patient with the SEGUN. . Signatures: Dispatcher [employer] Ruth Martinez RN RN ll1 Kalli Bradshaw PA-C PAHermes sb4 Russell Rodriguez MD MD ec2 Corrections: (The following items were deleted from the chart) 06/02 17:48 17:46 Home ll1 ll1 17:48 17:46 Fair 1 ll1
--- NOTE | 2023-06-03 17:57 | RAD REPORT ---
EXAM DESCRIPTION: RADChest Single View06/03/2023 5:35 pm CLINICAL HISTORY: CHEST PAIN COMPARISON: Chest Single View dated 06/01/2023; Chest Single View dated 05/21/2023; Chest Single View d ated 05/17/2023; Chest Single View dated 05/07/2023 TECHNIQUE: Portable AP view of the chest. FINDINGS: The lungs are clear. No pneumothorax or effusion. The cardiomediastinal contours are unre markable. IMPRESSION: No acute cardiopulmonary process.
[2023-06-03 18:18] LABS: Albumin 4.2 g/dL (3.4-5.0); Albumin/Globulin Ratio 1.1 (1.1-1.8); Anion Gap 10.8 mEq/L (5.0-15.0); Bilirubin Direct 0.2 mg/dL (0-0.2); Bilirubin Indirect, Calculated 0.3 mg/dL (0.2-0.8); Bilirubin Total 0.5 mg/dL (0.2-1.0); Globulin 3.8 g/dL (2.3-3.5); Magnesium 1.3 mg/dL (1.6-2.4); Potassium 4.8 mEq/L (3.5-5.1)
[2023-06-03 18:19] LABS: Troponin High Sensitivity 73.3 pg/mL (<58.9)
[2023-06-03 18:44] VITALS: BP 124/106; TEMP 98; O2SAT 97
--- NOTE | 2023-06-04 14:08 | EKG ---
Test Date: 2023-06-03 Test Time: 16:22:49 Wine Pasteurizer: LML MEASUREMENT RESULTS: Intervals: Rate: 93 WV: 174 QRSD: 98 QT: 358 QTc: 445 [place]: P: 62 WV: 174 QRS: -8 T: 135 INTERPRETIVE STATEMENTS: Sinus rhythm with fusion complexes Left ventricular hypertrophy with repolarization abnormality Abnormal ECG Compared to ECG 06/01/2023 13:44:45 Fusion complex(es) now present First degree AV block no longer present Electronically Signed On 06-04-23 14:05:31 CDT by Josse Olson
== END ==
LOC: ER 16:51
DX: R07.9 Chest pain, unspecified (principal); I10 Essential (primary) hypertension; J44.9 Chronic obstructive pulmonary disease, unspecified; I25.2 Old myocardial infarction; F17.210 Nicotine dependence, cigarettes, uncomplicated; Z88.6 Allergy status to analgesic agent; Z91.013 Allergy to seafood; Z91.018 Allergy to other foods; Z86.73 Personal history of transient ischemic attack (TIA), and cerebral infarction without residual deficits
CPT/HCPCS: 36415; 71045; 80048; 80076; 83735; 83880; 84484; 85025; 85610; 93005; 99285

== ENCOUNTER 2023-06-07 12:54 | Inpatient (IN) | payer OTHER ==
[2023-06-07] MEDS ORDERED: ASPIRIN 81 MG CHEWABLE TABLET ONE (13:39)
[2023-06-07] MEDS ORDERED: NA CHLORIDE 0.9% 1,000 ML ONE (13:39)
[2023-06-07 13:45] LABS: Absolute Basophils 0.1 K/uL (0-0.5); Absolute Eosinophils 0.3 K/uL (0-0.5); Absolute Lymphocytes (CBC) 1.5 K/uL (0.7-4.9); Absolute Monocytes 0.4 K/uL (0.1-1.3); Absolute Neutrophil 2.8 K/uL (1.8-8.0); Basophils % 1.3 % (0-1.3); Hematocrit 34.7 % (36.0-45.0); Hemoglobin 11.6 g/dL (12.0-15.0); Lymphocytes % 30.2 % (15.3-44.8); MCH 30.9 pg (27.0-35.0); MCHC 33.5 g/dL (32.0-36.0); MCV 92.2 fL (80-100); MPV 7.4 fL (7.6-11.3); Monocytes % 7.9 % (3.3-12.3); Neutrophils % 54.6 % (41.7-73.7); Platelets 233 thou/uL (152-406); RBC Red Blood Cell Count 3.76 M/uL (3.86-4.86); Red Cell Distribution Width 12.7 % (12.1-15.2)
[2023-06-07 14:35] LABS: Anion Gap 9.2 mEq/L (5.0-15.0); Potassium 4.2 mEq/L (3.5-5.1)
[2023-06-07 14:36] LABS: Troponin High Sensitivity 127.3 pg/mL (<58.9)
--- NOTE | 2023-06-07 14:46 | RAD REPORT ---
EXAM DESCRIPTION: RAD - Chest Single View - 06/07/2023 2:34 pm CLINICAL HISTORY: CHEST PAIN Chest pain. COMPARISON: Chest Single View dated 06/03/2023; Chest Single View dated 06/01/2023; Chest Single View dated 05/21/2023; Chest Single View dated 05/17/2023 FINDINGS: Portable technique limits examination quality. The lungs are grossly clear. The heart is normal in size. No displaced fractures. IMPRESSION: No acute intrathoracic process suspected.
--- NOTE | 2023-06-07 14:54 | ER ---
Nurse's Notes [facility] Name: Geetha Khan Age: 48 yrs Sex: Female : 1975 Arrival Date: 06/07/2023 Time: 12:54 Bed 14 Private MD: Diagnosis: Chest pain, unspecified-elevated troponin;Acute kidney failure, unspecified Presentation: 06/06 13:00 Chief complaint: EMS states: CENTER CHEST PAIN STARTED AT NOON. PT SMELLS OF URINE. db 13:00 Coronavirus screen: Vaccine status: Patient reports being unvaccinated. Client denies db travel out of the [place] in the last 14 days. At this time, the client does not indicate any symptoms associated with coronavirus-19. Ebola Screen: Patient negative for fever greater than or equal to 101.5 degrees Fahrenheit, and additional compatible Ebola Virus Disease symptoms Patient denies exposure to infectious person. Patient denies travel to an Ebola-affected area in the 21 days before illness onset. No symptoms or risks identified at this time. Initial Sepsis Screen: Does the patient meet any 2 criteria? No. Patient's initial sepsis screen is negative. Does the patient have a suspected source of infection? No. Patient's initial sepsis screen is negative. Risk Assessment: Do you want to hurt yourself or someone else? Patient reports no desire to harm self or others. Onset of symptoms was June 07, 2023 at 12:00. 13:00 Method Of Arrival: EMS: [facility] db 13:00 Acuity: CORRINA 2 db Triage Assessment: 13:15 General: Appears in no apparent distress. comfortable, Behavior is calm, cooperative. db Pain: Complains of pain in chest. Cardiovascular: Reports chest pain, Capillary refill < 3 seconds Patient's skin is warm and dry. Chest pain. Respiratory: No deficits noted. Airway is patent Respiratory effort is even, unlabored, Respiratory pattern is regular, symmetrical. GI: No deficits noted. No signs and/or symptoms were reported involving the gastrointestinal system. : No deficits noted. No signs and/or symptoms were reported regarding the genitourinary system. Derm: No deficits noted. No signs and/or symptoms reported regarding the dermatologic system. Musculoskeletal: No deficits noted. No signs and/or symptoms reported regarding the musculoskeletal system. 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 - Social history:: Smoking status: Patient reports the use of cigarette tobacco products, smokes one-half pack cigarettes per day. Screenin:15 [facility] ED Fall Risk Assessment (Adult) History of falling in the last 3 months, me1 including since admission No falls in past 3 months (0 pts) Confusion or Disorientation No (0 pts) Intoxicated or Sedated No (0 pts) Impaired Gait Yes (1 pt) Mobility Assist Device Used Yes (1 pt) Altered Elimination Yes (1 pt) Score/Fall Risk Level 3 or more points = High Risk Maintained a safe environment, Hourly rounding (assess needs \\T\\ fall precautionary measures) done. Abuse screen: Denies threats or abuse. Nutritional screening: No deficits noted. Tuberculosis screening: No symptoms or risk factors identified. Assessment: 13:15 General: Appears uncomfortable, unkempt, Behavior is calm, cooperative, appropriate for me1 age, Smells of urine. Pain: Complains of pain in chest Pain does not radiate. Pain currently is 7 out of 10 on a pain scale. Quality of pain is described as sharp, Pain began suddenly, Is continuous. 13:15 Neuro: Level of Consciousness is awake, alert, obeys commands, Oriented to person, me1 place, time, situation, Appropriate for age. Cardiovascular: Reports chest pain. Respiratory: Respiratory effort is even, unlabored, Respiratory pattern is regular, symmetrical. Derm: Skin is pink, warm \\T\\ dry. Musculoskeletal: left sided weakness from previous CVA. 14:55 Reassessment: Patient is alert, oriented x 3, equal unlabored respirations, skin aa5 warm/dry/pink. Pt states "I want to go home, please call my ". Provider spoke to pt and notified of need for admission, pt refusing to be admitted to hospital. Called pt's , left voice mail. . 15:00 Reassessment: Patient is alert, oriented x 3, equal unlabored respirations, skin aa5 warm/dry/pink. Hospitalist GOMEZ Montalvo at bedside, speaking to patient, pt agrees to stay admitted to hospital at this time. . 15:29 Reassessment: Patient appears in no apparent distress at this time. Patient is alert, db oriented x 3, equal unlabored respirations, skin warm/dry/pink. PATIENT STATES WANTS TO GO HOME. STATES JUST WANTS TO LEAVE. PT STATES DOES NOT HAVE A RIDE BUT WANTS TO JUST GO SIT IN WAITING ROOM. ASKED PATIENT AGAIN IF SHE CAN WAIT SO THAT STAFF CAN HELP CLEAN HER BRIEF. PATIENT STATES IS AGREEABLE. 15:45 Reassessment: Answered call light, pt states "I just want to go home", pt denies chest aa5 pain, brief noted to be soiled, pt refused to be cleaned and declined new brief. Notified pt hasn't called back, pt states "I'll just wait in the lobby and call my myself, I just don't want to be in the hospital". Cierra Estrada NP was notified and pt will leave AMA. . Vital Signs: 13:00 BP 92 / 64; Pulse 73; Resp 18; Temp 98.3; Pulse Ox 98% ; Weight 68.04 kg; Height 5 ft. db 2 in. ; Pain 9/10; 14:00 BP 125 / 90; Pulse 74; Resp 16; Pulse Ox 95% on R/A; me1 15:15 BP 118 / 59; Pulse 76; Resp 14; Pulse Ox 95% on R/A; me1 13:00 Body Mass Index 27.44 (68.04 kg, 157.48 cm) db 13:00 Pain Scale: Adult db ED Course: 13:04 Patient arrived in ED. eb 13:07 Yeimy Martel, YANETH is Primary Nurse. db 13:12 Kathy Kerns FNP-C is PHCP. kb 13:12 Gene Medrano MD is Attending Physician. kb 13:15 Triage completed. db 13:15 Arm band placed on Patient placed in an exam room. db 13:15 Patient has correct armband on for positive identification. Bed in low position. Call me1 light in reach. Side rails up X2. Provided Education on: POC. Verbalized understanding. . Client placed on continuous cardiac and pulse oximetry monitoring. NIBP monitoring applied. desk monitor on. Pulse ox on. NIBP on. 13:15 No provider procedures requiring assistance completed. Patient maintains SpO2 me1 saturation greater than 95% on room air. 13:17 Nohemy Clark, RN is Primary Nurse. me1 13:36 Initial lab(s) drawn, by me, sent to lab. Inserted saline lock: 22 gauge in right me1 antecubital area, using aseptic technique. 13:37 Basic Metabolic Panel Sent. me1 13:37 CBC with Diff Sent. me1 13:37 Troponin HS Sent. me1 13:53 EKG done, by ED staff, reviewed by Kathy ENCINAS. me1 14:36 XRAY Chest (1 view) In Process Unspecified. EDMO 14:53 Tacos Franco MD is Hospitalizing Provider. kb 15:45 IV discontinued, intact, bleeding controlled, No redness/swelling at site. Pressure aa5 dressing applied. Administered Medications: 13:42 Not Given (patient has an aspirin allergy.): aspirinchewable tablet 324 mg PO once; 81 me1 mg tablets x 4 13:42 Drug: NS 0.9% IV 1000 ml IV at 1000 ml once Route: IV; Rate: 1000 ml; Site: right me1 antecubital; Medication: 13:15 VIS not applicable for this client. me1 Outcome: 14:54 Decision to Hospitalize by Provider. kb 15:00 Admitted to ER Hold. Please see [facility] for further documentation. aa5 16:15 Patient left the ED. aa5 Signatures: Dispatcher [employer] EDMO Kathy Kerns FNP-C FNP-Rosemarie Logan, RN RN aa5 Sharona Faith Danielle, RN RN Nohemy Clark, YANETH RN me1
--- NOTE | 2023-06-07 14:54 | EDPHYS ---
Physician Documentation [facility] Name: Geetha Khan Age: 48 yrs Sex: Female : 1975 Arrival Date: 06/07/2023 Time: 12:54 Bed 14 Private MD: ED Physician Gene Medrano HPI: 06/06 13:15 This 48 yrs old Female presents to ER via EMS with complaints of Chest Pain. 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 States she has this pain all of the time, but sometimes it gets worse and that is what makes her call 911. Pt denies any alleviating/aggravating factors. Denies n/v/d, dyspnea, cough, congestion, diaphoresis or fever. . 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 - Social history:: Smoking status: Patient reports the use of cigarette tobacco products, smokes one-half pack cigarettes per day. ROS: 13:15 Constitutional: As per HPI kb Exam: 13:15 Constitutional: This is a well developed, well nourished patient who is awake, alert, kb and in no acute distress. Head/Face: Normocephalic, atraumatic. ENT: Moist Mucous membranes Cardiovascular: Regular rate Respiratory: Respirations even and unlabored. No increased work of breathing. Talking in full sentences Abdomen/GI: Soft, non-tender. No distention Skin: Warm, dry with normal turgor. Normal color. MS/ Extremity: Pulses equal, no cyanosis. Neurovascular intact. Full, normal range of motion. Neuro: Awake and alert, GCS 15, oriented to person, place, time, and situation. Vital Signs: 13:00 BP 92 / 64; Pulse 73; Resp 18; Temp 98.3; Pulse Ox 98% ; Weight 68.04 kg; Height 5 ft. db 2 in. ; Pain 9/10; 14:00 BP 125 / 90; Pulse 74; Resp 16; Pulse Ox 95% on R/A; me1 15:15 BP 118 / 59; Pulse 76; Resp 14; Pulse Ox 95% on R/A; me1 13:00 Body Mass Index 27.44 (68.04 kg, 157.48 cm) db 13:00 Pain Scale: Adult db MDM: 13:12 Patient medically screened. kb 13:15 Data reviewed: vital signs, nurses notes. kb 13:15 Differential diagnosis: abnormal EKG, acute myocardial infarction, coronary artery kb disease chest wall pain. The patient was given aspirin in the Emergency Department. Historians other than the Patient: EMS: [facility]. 14:39 Consideration of Admission/Observation Patient was admitted/placed on observation. kb Escalation of care including admission/observation considered. 14:53 Management of patient was discussed with the following: Hospitalist: Hospitalist team, kb pt accepted for consult under Dr Franco. Barrel Roller: Dr Garay consulted and accepts pt for admission here. Counseling: I had a detailed discussion with the patient and/or guardian regarding the historical points, exam findings, and any diagnostic results supporting the discharge/admit diagnosis, lab results, radiology results, the need for further work-up and treatment in the hospital. ED course: HEART score 6. . 06/06 13:12 Order name: Basic Metabolic Panel; Complete Time: 14:37 kb 06/06 13:12 Order name: CBC with Diff; Complete Time: 13:48 kb 06/06 13:12 Order name: Troponin HS; Complete Time: 14:37 kb 06/06 15:01 Order name: Basic Metabolic Panel EDOK 06/06 15:01 Order name: Basic Metabolic Panel EDOK 06/06 15:01 Order name: Urinalysis w/ reflexes EDOK 06/06 13:12 Order name: XRAY Chest (1 view); Complete Time: 14:47 kb 06/06 13:12 Order name: EKG; Complete Time: 13:12 kb 06/06 13:12 Order name: Cardiac monitoring; Complete Time: 13:52 kb 06/06 13:12 Order name: EKG - Nurse/Tech; Complete Time: 13:52 kb 06/06 13:12 Order name: IV Saline Lock; Complete Time: 13:37 kb 06/06 13:12 Order name: Labs collected and sent; Complete Time: 13:37 kb 06/06 13:12 Order name: O2 Per Protocol; Complete Time: 13:37 kb 06/06 13:12 Order name: O2 Sat Monitoring; Complete Time: 13:37 kb 06/06 13:52 Order name: Labs - recollect needed: recollect chemistries/ hemolyzed; Complete Time: eb 14:09 Administered Medications: 13:42 Not Given (patient has an aspirin allergy.): aspirinchewable tablet 324 mg PO once; 81 me1 mg tablets x 4 13:42 Drug: NS 0.9% IV 1000 ml IV at 1000 ml once Route: IV; Rate: 1000 ml; Site: right me1 antecubital; Disposition: 17:49 Co-signature as Attending Physician, Gene Medrano MD I reviewed the patient's care rn provided by the Advanced Practice Provider and agree with the diagnosis and treatment plan. Disposition Summary: 06/07/23 14:54 Hospitalization Ordered Notes: Hospitalization Status: Observation kb Provider: Tacos Franco Location: Telemetry/MedSurg (observation) kb Condition: Stable kb Problem: new kb Symptoms: are unchanged kb Bed/Room Type: Standard Room Assignment: kb Diagnosis - Chest pain, unspecified - elevated troponin kb - Acute kidney failure, unspecified kb Forms: - Medication Reconciliation Form kb - SBAR form kb - Leadership Thank You Letter kb Signatures: Dispatcher [employer] Kathy Hines, DIRECTOR CORPORATE SECURITY-C DIRECTOR CORPORATE SECURITY-Ckb Gene Medrano MD MD rn Botello, Elizabeth eb Benton, Danielle, RN Nohemy Bryan RN RN me1 Corrections: (The following items were deleted from the chart) 13:25 13:15 Pt is a 48 year old female who presents with 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 States she has this pain all of the time, but sometimes it gets worse and that is what makes her call 911. Pt denies any alleviating/aggravating factors. Denies n/v/d, dyspnea, cough, congestion, fever. . kb
[2023-06-07] MEDS ORDERED: ACETAMINOPHEN 500 MG TAB PO PRN (14:58)
[2023-06-07] MEDS ORDERED: ONDANSETRON 4 MG/2 ML VIAL IV PRN (14:58)
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
[2023-06-07] MEDS ORDERED: HYDROCODONE/APAP 5/325 MG TAB PO PRN (15:04)
[2023-06-07 17:06] VITALS: BP 118/59; TEMP 98.3
[2023-06-07 17:07] VITALS: O2SAT 95
[2023-06-07] MEDS ORDERED: ATORVASTATIN 40 MG TAB PO SCH (21:00)
[2023-06-07] MEDS ORDERED: METOPROLOL XL 25 MG TAB PO SCH (21:00)
[2023-06-08] MEDS ORDERED: lisinopriL 20 MG TAB PO SCH (09:00)
[2023-06-08] MEDS ORDERED: CLOPIDOGREL 75 MG TABLET PO SCH (09:00)
--- NOTE | 2023-06-10 14:27 | EKG ---
Test Date: 2023-06-07 Test Time: 12:48:43 [employer]efier: MEASUREMENT RESULTS: Intervals: Rate: 69 GA: 180 QRSD: 96 QT: 404 QTc: 432 [place]: P: 60 GA: 180 QRS: 17 T: 189 INTERPRETIVE STATEMENTS: Normal sinus rhythm Left ventricular hypertrophy with repolarization abnormality Nonspecific ST abnormality Abnormal ECG Compared to ECG 06/03/2023 16:22:49 ST (T wave) deviation now present Fusion complex(es) no longer present Electronically Signed On 06-10-23 14:16:48 CDT by Josse Olson
== END 2023-06-07 16:00 | disposition left against medical advice (07) | DRG 281 ==
LOC: ER 12:54 → ERHOLD 14:57
PROVIDERS: ADMIT Hospitalist; ATTEND Hospitalist
DX: I21.4 Non-ST elevation (NSTEMI) myocardial infarction (principal); I50.32 Chronic diastolic (congestive) heart failure; N17.9 Acute kidney failure, unspecified; I11.0 Hypertensive heart disease with heart failure; E78.5 Hyperlipidemia, unspecified; J44.9 Chronic obstructive pulmonary disease, unspecified; I25.2 Old myocardial infarction; F17.210 Nicotine dependence, cigarettes, uncomplicated; Z88.6 Allergy status to analgesic agent; Z79.02 Long term (current) use of antithrombotics/antiplatelets; Z86.73 Personal history of transient ischemic attack (TIA), and cerebral infarction without residual deficits; Z53.29 Procedure and treatment not carried out because of patient's decision for other reasons; Z79.899 Other long term (current) drug therapy; Z91.018 Allergy to other foods; Z91.013 Allergy to seafood
CPT/HCPCS: 36415; 71045; 80048; 84484; 85025; 93005; 99285; J7030

== ENCOUNTER → 2023-06-08 | Emergency (ER) | payer OTHER ==
[~2023-06-08] MED LIST changes: +CLOPIDOGREL 75 MG TABLET ONE; +MORPHINE 2 MG/ML SYR ONE; -NITROGLYCERIN 0.4 MG/TAB SL ONE
--- NOTE | 2023-06-08 18:45 | RAD REPORT ---
EXAM DESCRIPTION: RAD - Chest Single View - 06/08/2023 6:29 pm CLINICAL HISTORY: CHEST PAIN COMPARISON: Chest Single View dated 06/07/2023; Chest Single View dated 06/03/2023; Chest Single View dated 06/01/2023; Chest Single View dated 05/21/2023 FINDINGS: Lines: None. Lungs: No evidence of edema or pneumonia. Pleural: No significant pleural effusions or pneumothorax. Cardiac: The heart size is within normal limits. Mediastinum: Within normal limits. Bones: No acute fractures. Other: None IMPRESSION: No acute cardiopulmonary disease.
[2023-06-08 18:49] LABS: Absolute Basophils 0.1 K/uL (0-0.5); Absolute Eosinophils 0.3 K/uL (0-0.5); Absolute Lymphocytes (CBC) 1.6 K/uL (0.7-4.9); Absolute Monocytes 0.3 K/uL (0.1-1.3); Absolute Neutrophil 3.4 K/uL (1.8-8.0); Basophils % 1.4 % (0-1.3); Eosinophils % 4.9 % (0-4.4); Hematocrit 32.6 % (36.0-45.0); Hemoglobin 11.4 g/dL (12.0-15.0); Lymphocytes % 28.2 % (15.3-44.8); MCH 32.1 pg (27.0-35.0); MCV 91.7 fL (80-100); MPV 7.4 fL (7.6-11.3); Monocytes % 5.9 % (3.3-12.3); Neutrophils % 59.6 % (41.7-73.7); Platelets 234 thou/uL (152-406); RBC Red Blood Cell Count 3.55 M/uL (3.86-4.86); Red Cell Distribution Width 12.7 % (12.1-15.2)
[2023-06-08 18:52] LABS: PT Prothrombin Time 11.5 SECONDS (9.5-12.5); Protime INR 1.05
[2023-06-08 19:16] LABS: Albumin 4.1 g/dL (3.4-5.0); Albumin/Globulin Ratio 1.1 (1.1-1.8); Anion Gap 11.1 mEq/L (5.0-15.0); Bilirubin Direct 0.1 mg/dL (0-0.2); Bilirubin Indirect, Calculated 0.3 mg/dL (0.2-0.8); Bilirubin Total 0.4 mg/dL (0.2-1.0); Globulin 3.6 g/dL (2.3-3.5); Magnesium 1.3 mg/dL (1.6-2.4); Potassium 4.1 mEq/L (3.5-5.1); Protein, Total 7.7 g/dL (6.4-8.2)
[2023-06-08 19:17] LABS: Troponin High Sensitivity 150.3 pg/mL (<58.9)
--- NOTE | 2023-06-08 20:08 | ER ---
Nurse's Notes [facility] Name: Geetha Khan Age: 48 yrs Sex: Female : 1975 Arrival Date: 06/08/2023 Time: 17:52 Bed 7 Private MD: Diagnosis: Chest pain, unspecified;Unspecified kidney failure Presentation: 06/07 18:00 Chief complaint: Patient states: chest pain in center of chest. Coronavirus screen: At ko1 this time, the client does not indicate any symptoms associated with coronavirus-19. Ebola Screen: No symptoms or risks identified at this time. Initial Sepsis Screen: Does the patient meet any 2 criteria? No. Patient's initial sepsis screen is negative. Does the patient have a suspected source of infection? No. Patient's initial sepsis screen is negative. Risk Assessment: Do you want to hurt yourself or someone else? Patient reports no desire to harm self or others. Onset of symptoms is unknown. 18:00 Method Of Arrival: Wheelchair ko1 18:00 Acuity: CORRINA 3 ko1 Triage Assessment: 18:05 General: Appears in no apparent distress. unkempt, Behavior is calm, cooperative, ko1 appropriate for age. Pain: Complains of pain in chest. Cardiovascular: Reports chest pain. 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 - Social history:: Smoking status: Patient reports the use of cigarette tobacco products, smokes one pack cigarettes per day. Screenin:12 [facility] ED Fall Risk Assessment (Adult) Score/Fall Risk Level. Abuse screen: Denies iw threats or abuse. Denies injuries from another. Nutritional screening: No deficits noted. Tuberculosis screening: No symptoms or risk factors identified. Assessment: 18:40 General: Appears in no apparent distress. comfortable, Behavior is calm, cooperative. iw Pain: Complains of pain in chest Pain does not radiate. Pain began 1 day ago. Is continuous. Neuro: Level of Consciousness is awake, alert, obeys commands, Oriented to person, place, time, situation. Cardiovascular: Reports chest pain, has resolved Patient's skin is warm and dry. Respiratory: Airway is patent Respiratory effort is even, unlabored, Respiratory pattern is regular. GI: Abdomen is non-distended. Derm: Skin is healthy with good turgor. Musculoskeletal: Range of motion: limited in all extremities. 19:12 Reassessment: Patient appears in no apparent distress at this time. Patient and/or iw family updated on plan of care and expected duration. Pain level reassessed. Patient is alert, oriented x 3, equal unlabored respirations, skin warm/dry/pink. 19:54 Reassessment: Patient states feeling better. tm6 19:54 Reassessment: patient wanting to leave AMA. Patient educated on elevated troponin tm6 levels and possible heart attack. Patient stated she understood, but that she did not want to be here any more. Patient stated she has an appointment with a [facility] radar operator/navigator on Saturday, and that she would not stay at the hospital any longer. RN explained that if patient left now, it would be against medical advice. Patient stated she still would like to leave. Patient signed AMA form. Vital Signs: 18:00 BP 115 / 80; Pulse 83; Resp 18; Temp 98.1; Pulse Ox 99% on R/A; ko1 19:53 BP 128 / 80; Pulse 87; Resp 18; Temp 97.5(TE); Pulse Ox 99% on R/A; Pain 0/10; tm6 19:53 Pain Scale: Adult tm6 ED Course: 17:54 Patient arrived in ED. rg4 18:05 Triage completed. ko1 18:05 Arm band placed on right wrist. Patient placed in an exam room, in a wheelchair, on ko1 equipment monitor phototypesetting, on pulse oximetry, Patient notified of wait time. 18:18 Michael Nguyen PA is PHCP. cp 18:18 Michael Grimm MD is Attending Physician. cp 18:30 XRAY Chest (1 view) In Process Unspecified. EDMS 18:44 Initial lab(s) drawn, by me, sent to lab. Inserted saline lock: 22 gauge in right hand, iw using aseptic technique. 19:14 Patient maintains SpO2 saturation greater than 95% on room air. iw 19:46 Greg Allen, RN is Primary Nurse. tm6 19:58 No provider procedures requiring assistance completed. IV discontinued, intact, tm6 bleeding controlled, No redness/swelling at site. Pressure dressing applied. 20:08 Primary Nurse role handed off by Greg Allen, YANETH tm6 20:10 Josse Olson MD is Referral Physician. cp Administered Medications: 19:09 Drug: Clopidogrel PO 75 mg PO once Route: PO; iw 19:10 Drug: morphine IVP or IV 2 mg IVP once over 4 mins Route: IVP; Infused Over: 4 mins; iw Site: right hand; Outcome: 19:58 AMA AMA form signed tm6 19:58 Condition: stable 19:58 Instructed on need for further medical care Demonstrated understanding of leaving against medical advice 20:08 Patient left the ED. tm6 20:18 Patient left the ED. jb4 Signatures: Dispatcher [employer] EDMS Iqra Issa RN RN iw Michael Nguyen PA PA cp Erica Talley rg4 Jaziel Storm RN RN jb4 Toya Huerta RN RN ko1 Greg Allen, YANETH RN tm6
--- NOTE | 2023-06-08 20:11 | EDPHYS ---
Physician Documentation [facility] Name: Geetha Khan Age: 48 yrs Sex: Female : 1975 Arrival Date: 06/08/2023 Time: 17:52 Bed 7 Private MD: ED Physician Michael Grimm HPI: 06/07 18:20 This 48 yrs old Female presents to ER via Wheelchair with complaints of Chest Pain. cp 18:20 The patient or guardian reports chest pain that is located primarily in the substernal cp area. 18:20 Onset: yesterday. cp 18:20 The pain does not radiate. cp 18:20 Associated signs and symptoms: Pertinent negatives: abdominal pain, diaphoresis, near cp syncope, shortness of breath, syncope. 18:20 Duration: The patient or guardian reports multiple episodes. cp 18:20 The patient has been recently seen at the [facility] Emergency cp Department, yesterday, for similar complaints admitted to hospital. 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 - Social history:: Smoking status: Patient reports the use of cigarette tobacco products, smokes one pack cigarettes per day. ROS: 18:25 Constitutional: Negative for body aches, chills, fever, poor PO intake, cp 18:25 Eyes: Negative for injury, pain, redness, and discharge, cp 18:25 ENT: Negative for drainage from ear(s), ear pain, sore throat, difficulty swallowing, difficulty handling secretions, 18:25 Cardiovascular: Positive for chest pain, Negative for edema, palpitations, 18:25 Respiratory: Negative for cough, shortness of breath, wheezing, 18:25 Abdomen/GI: Negative for abdominal pain, vomiting, diarrhea, constipation, 18:25 Neuro: Negative for altered mental status, headache, 18:25 All other systems are negative, Exam: 18:30 Constitutional: The patient appears in no acute distress, alert, awake, cp non-diaphoretic, non-toxic, well developed, well nourished, 18:30 Head/Face: Normocephalic, atraumatic. cp 18:30 Eyes: Periorbital structures: appear normal, Conjunctiva: normal, no exudate, no injection, Sclera: no appreciated abnormality, Lids and lashes: appear normal, bilaterally, 18:30 ENT: External ear(s): are unremarkable, Nose: is normal, Mouth: Lips: moist, Oral mucosa: pink and intact, moist, Posterior pharynx: Airway: no evidence of obstruction, patent, 18:30 Neck: ROM/movement: is normal, is supple, without pain, no range of motions limitations, 18:30 Chest/axilla: Inspection: normal, 18:30 Cardiovascular: Rate: normal, Rhythm: regular, JVD: is not appreciated, 18:30 Respiratory: the patient does not display signs of respiratory distress, Respirations: normal, no use of accessory muscles, no retractions, labored breathing, is not present, Breath sounds: are clear throughout, no decreased breath sounds, no stridor, no wheezing, 18:30 Abdomen/GI: Exam negative for discomfort, distension, guarding, Inspection: abdomen appears normal, 18:30 Neuro: Orientation: to person, place \T\ time. Mentation: is normal, Motor: left side weakness from previous CVA, 19:08 ECG was reviewed by the Attending Physician. cp Vital Signs: 18:00 BP 115 / 80; Pulse 83; Resp 18; Temp 98.1; Pulse Ox 99% on R/A; ko1 19:53 BP 128 / 80; Pulse 87; Resp 18; Temp 97.5(TE); Pulse Ox 99% on R/A; Pain 0/10; tm6 19:53 Pain Scale: Adult tm6 MDM: 18:18 Patient medically screened. cp 19:20 The patient was not given aspirin in the Emergency Department. Not indicated due to cp patient's past medical history. 19:20 Data reviewed: vital signs, nurses notes, lab test result(s), EKG, radiologic studies, cp plain films. 20:00 Refusal of service: The patient/guardian displays adequate decision making capability cp and despite a detailed discussion of alternatives, benefits, risks, and consequences refuses: Admission to the hospital for further work-up and treatment. 20:00 Counseling: I had a detailed discussion with the patient and/or guardian regarding the cp historical points, exam findings, and any diagnostic results supporting the discharge/admit diagnosis, lab results, radiology results, the need for further work-up and treatment in the hospital. 06/07 18:19 Order name: Basic Metabolic Panel; Complete Time: 19:17 cp 06/07 19:18 Interpretation: Normal except: CL 111; CO2 19; BUN 44; CRE 2.10; GFR 29; CA 10.4. cp 06/07 18:19 Order name: CBC with Diff; Complete Time: 19:11 cp 06/07 19:11 Interpretation: Normal except: RBC 3.55; HGB 11.4; HCT 32.6; MPV 7.4; EOSINOPHIL % 4.9; cp BASO% 1.4. 06/07 18:19 Order name: LFT's; Complete Time: 19:17 cp 06/07 19:19 Interpretation: Normal except: AST 65; ALK 236; GLOB 3.6. cp 06/07 18:19 Order name: Magnesium; Complete Time: 19:17 cp 06/07 19:19 Interpretation: Abnormal: MG 1.3. cp 06/07 18:19 Order name: NT PRO-BNP; Complete Time: 19:17 cp 06/07 18:19 Order name: PT-INR; Complete Time: 19:11 cp 06/07 18:19 Order name: Troponin HS; Complete Time: 19:17 cp 06/07 18:19 Order name: XRAY Chest (1 view); Complete Time: 18:48 cp 06/07 18:19 Order name: EKG; Complete Time: 18:20 cp 06/07 18:19 Order name: Cardiac monitoring; Complete Time: 19:20 cp 06/07 18:19 Order name: EKG - Nurse/Tech; Complete Time: 19:20 cp 06/07 18:19 Order name: IV Saline Lock; Complete Time: 19:00 cp 06/07 18:19 Order name: Labs collected and sent; Complete Time: 19:00 cp 06/07 18:19 Order name: O2 Per Protocol; Complete Time: 19:20 cp 06/07 18:19 Order name: O2 Sat Monitoring; Complete Time: 19:20 cp EC:08 Rate is 81 beats/min. Rhythm is regular. MA interval is normal. QRS interval is normal. cp QT interval is normal. T waves are Inverted in leads I, II, aVL, V2. Interpreted by me. Reviewed by me. Administered Medications: 19:09 Drug: Clopidogrel PO 75 mg PO once Route: PO; iw 19:10 Drug: morphine IVP or IV 2 mg IVP once over 4 mins Route: IVP; Infused Over: 4 mins; iw Site: right hand; Disposition Summary: 06/08/23 20:10 Left Against Medical Advice Notes: Location: Home(06/08/23 20:10) cp Problem: an ongoing problem cp Symptoms: have improved cp Condition: Stable(06/08/23 20:10) cp Diagnosis - Chest pain, unspecified cp - Unspecified kidney failure cp Followup: cp - With: Josse Olson MD - When: 1 - 2 days - Reason: Signatures: Dispatcher [employer] EDIqra Nieto RN RN iw Michael Nguyen PA PA cp Toya Huerta, RN RN ko1 Greg Allen RN RN tm6 Corrections: (The following items were deleted from the chart) 20:08 20:08 Home tm6 tm6 20:08 20:08 Stable tm6 tm6 06/08 19:37 06/07 18:20 Onset: today, cp cp 06/08 19:42 06/07 19:20 Consideration of Admission/Observation Patient was admitted/placed on cp observation. cp
[2023-06-08 21:27] VITALS: BP 128/80; TEMP 97.5; O2SAT 99
--- NOTE | 2023-06-10 14:19 | EKG ---
Test Date: 2023-06-08 Test Time: 19:03:11 Cancer Program Coordinator: LINSEY MEASUREMENT RESULTS: Intervals: Rate: 81 IL: 172 QRSD: 98 QT: 384 QTc: 446 [place]: P: 55 IL: 172 QRS: 5 T: 148 INTERPRETIVE STATEMENTS: Sinus rhythm with occasional premature ventricular complexes Possible Left atrial enlargement Left ventricular hypertrophy with repolarization abnormality Abnormal ECG Compared to ECG 06/07/2023 12:48:43 Ventricular premature complex(es) now present ST (T wave) deviation no longer present Electronically Signed On 06-10-23 14:14:39 CDT by Josse Olson
== END ==
LOC: ER 17:52
DX: R07.9 Chest pain, unspecified (principal); N19 Unspecified kidney failure; J44.9 Chronic obstructive pulmonary disease, unspecified; I10 Essential (primary) hypertension; F17.210 Nicotine dependence, cigarettes, uncomplicated; Z88.6 Allergy status to analgesic agent; Z91.013 Allergy to seafood; Z91.018 Allergy to other foods
CPT/HCPCS: 93005; 85025; 80048; 36415; 83735; 85610; 80076; 84484; 83880; 71045; 96374; 99285; J2270

== ENCOUNTER → 2023-06-10 | Emergency (ER) | payer OTHER ==
[~2023-06-10] MED LIST changes: -CLOPIDOGREL 75 MG TABLET ONE; -MORPHINE 2 MG/ML SYR ONE; +NITROGLYCERIN 0.4 MG/TAB SL ONE
--- NOTE | 2023-06-10 16:22 | RAD REPORT ---
EXAM DESCRIPTION: Wait Single View06/10/2023 4:05 pm CLINICAL HISTORY: Chest pain COMPARISON: 06/08/2023 FINDINGS: The lungs appear clear of acute infiltrate. The heart is normal size IMPRESSION: No acute abnormalities displayed
[2023-06-10 16:56] LABS: Absolute Basophils 0.1 K/uL (0-0.5); Absolute Eosinophils 0.3 K/uL (0-0.5); Absolute Lymphocytes (CBC) 1.8 K/uL (0.7-4.9); Absolute Monocytes 0.4 K/uL (0.1-1.3); Absolute Neutrophil 2.3 K/uL (1.8-8.0); Eosinophils % 7.1 % (0-4.4); Hematocrit 33.5 % (36.0-45.0); Hemoglobin 11.8 g/dL (12.0-15.0); Lymphocytes % 36.7 % (15.3-44.8); MCH 32.3 pg (27.0-35.0); MCHC 35.2 g/dL (32.0-36.0); MCV 91.8 fL (80-100); MPV 7.2 fL (7.6-11.3); Monocytes % 7.2 % (3.3-12.3); Nucleated Red Blood Cells % 0.1 % (0-0); Platelets 218 thou/uL (152-406); RBC Red Blood Cell Count 3.64 M/uL (3.86-4.86); Red Cell Distribution Width 12.9 % (12.1-15.2)
[2023-06-10 17:04] LABS: PT Prothrombin Time 12.1 SECONDS (9.5-12.5); Protime INR 1.1
[2023-06-10 17:16] LABS: Albumin 4.4 g/dL (3.4-5.0); Albumin/Globulin Ratio 1.4 (1.1-1.8); Anion Gap 11.1 mEq/L (5.0-15.0); Bilirubin Direct 0.1 mg/dL (0-0.2); Bilirubin Indirect, Calculated 0.2 mg/dL (0.2-0.8); Bilirubin Total 0.3 mg/dL (0.2-1.0); Globulin 3.2 g/dL (2.3-3.5); Magnesium 1.4 mg/dL (1.6-2.4); Potassium 4.1 mEq/L (3.5-5.1); Protein, Total 7.6 g/dL (6.4-8.2)
[2023-06-10 17:19] LABS: Troponin High Sensitivity 105.4 pg/mL (<58.9)
--- NOTE | 2023-06-10 17:28 | EDPHYS ---
Physician Documentation [facility] Name: Geetha Khan Age: 48 yrs Sex: Female : 1975 Arrival Date: 06/10/2023 Time: 15:22 Bed 16 Private MD: ED Physician Hoa Eddy HPI: 06/09 15:28 This 48 yrs old Female presents to ER via EMS with complaints of Chest Pain > 30 y/o. sp3 15:28 48-year-old female with known CVA, coronary artery disease, hypertension now presents sp3 to the ED with continued chest pain for greater than 1 week. Patient was seen earlier several days ago and was admitted and left AMA. During that time she had positive troponins. She continues to have chest pain coupled with shortness of breath. She denies any headache, fever, URI symptoms, Erik pain, nausea, vomiting, diarrhea, syncope, near syncope, or any other signs or symptoms on ROS at this time.. 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 - Social history:: Smoking status: Patient reports the use of cigarette tobacco products, smokes one-half pack cigarettes per day. ROS: 15:28 Constitutional: Negative for fever, chills, and weight loss, Eyes: Negative for injury, sp3 pain, redness, and discharge, ENT: Negative for injury, pain, and discharge, Neck: Negative for injury, pain, and swelling, Abdomen/GI: Negative for abdominal pain, nausea, vomiting, diarrhea, and constipation, Back: Negative for injury and pain, MS/Extremity: Negative for injury and deformity, Skin: Negative for injury, rash, and discoloration, Neuro: Negative for headache, weakness, numbness, tingling, and seizure, Psych: Negative for depression, anxiety, suicide ideation, homicidal ideation, and hallucinations, Allergy/Immunology: Negative for hives, rash, and allergies, Endocrine: Negative for neck swelling, polydipsia, polyuria, polyphagia, and marked weight changes, 15:28 All other systems are negative, Exam: 15:29 Constitutional: This is a well developed, well nourished patient who is awake, alert, sp3 and in no acute distress. Head/Face: Normocephalic, atraumatic. Eyes: Pupils equal round and reactive to light, extra-ocular motions intact. Lids and lashes normal. Conjunctiva and sclera are non-icteric and not injected. Cornea within normal limits. Periorbital areas with no swelling, redness, or edema. Neck: Trachea midline, no thyromegaly or masses palpated, and no cervical lymphadenopathy. Supple, full range of motion without nuchal rigidity, or vertebral point tenderness. No Meningismus. Chest/axilla: Normal chest wall appearance and motion. Nontender with no deformity. No lesions are appreciated. Cardiovascular: Regular rate and rhythm with a normal S1 and S2. No gallops, murmurs, or rubs. Normal PMI, no JVD. No pulse deficits. Respiratory: Lungs have equal breath sounds bilaterally, clear to auscultation and percussion. No rales, rhonchi or wheezes noted. No increased work of breathing, no retractions or nasal flaring. Abdomen/GI: Soft, non-tender, with normal bowel sounds. No distension or tympany. No guarding or rebound. No evidence of tenderness throughout. Skin: Warm, dry with normal turgor. Normal color with no rashes, no lesions, and no evidence of cellulitis. MS/ Extremity: Pulses equal, no cyanosis. Neurovascular intact. Full, normal range of motion. Psych: Awake, alert, with orientation to person, place and time. Behavior, mood, and affect are within normal limits. 15:46 ECG was reviewed by the Attending Physician. EKG demonstrates normal sinus rhythm at 70 sp3 bpm with normal intervals, normal QRS 6, normal axis, diffuse T wave inversions inferior laterally with nonspecific diffuse changes. Vital Signs: 15:25 BP 117 / 78; Pulse 72; Resp 16; Temp 98.4(O); Pulse Ox 94% on R/A; Weight 65.77 kg; me1 Height 5 ft. 2 in. ; Pain 10/10; 15:30 BP 108 / 77; Pulse 76; Resp 16; Pulse Ox 99% on R/A; me1 15:50 BP 138 / 97; Pulse 67; Resp 15; Pulse Ox 100% on R/A; me1 17:00 BP 103 / 81; Pulse 71; Resp 11; Pulse Ox 100% on R/A; me1 17:29 Pain 0/10; me1 18:00 BP 120 / 99; Pulse 56; Resp 21; Pulse Ox 98% on R/A; me1 19:00 BP 116 / 69; Pulse 74; Resp 16; Pulse Ox 100% on R/A; me1 15:25 Body Mass Index 26.52 (65.77 kg, 157.48 cm) ct1 15:25 Pain Scale: Adult me1 17:29 Pain Scale: Adult ct1 MDM: 15:25 Patient medically screened. sp3 15:29 Data reviewed: vital signs, nurses notes, lab test result(s), EKG, radiologic studies. sp3 ED course: 48-year-old female with extensive past medical history well-documented in multiple visits to the ED now with recurrent and continued chest pain. Differential diagnosis includes acute coronary syndrome, angina, electrolyte abnormality, among others. I am not highly suspicious for pulmonary embolism, pneumonia, vascular pathology or any other critical process at this time. Disposition possible admission. Patient has had multiple episodes of chest pain and recurrent symptoms in the past.. 17:26 ED course: Troponin elevated with elevated creatinine as well. Patient states that she sp3 will stay and not leave AMA at this time. We will place her in admission with cardiology consult. Hospitalist service says to admit to night team with Dr. Kitchen.. 19:23 ED course: Patient was again want to leave AMA.. 3 06/09 15:25 Order name: Basic Metabolic Panel; Complete Time: 17:22 3 06/09 15:25 Order name: CBC with Diff; Complete Time: 17:16 3 06/09 15:25 Order name: LFT's; Complete Time: 17:22 3 06/09 15:25 Order name: Magnesium; Complete Time: 17:22 3 06/09 15:25 Order name: NT PRO-BNP; Complete Time: 17:22 3 06/09 15:25 Order name: PT-INR; Complete Time: 17:16 3 06/09 15:25 Order name: Troponin HS; Complete Time: 17:22 3 06/09 15:25 Order name: XRAY Chest (1 view); Complete Time: 16:32 3 06/09 15:25 Order name: EKG; Complete Time: 15:26 3 06/09 15:25 Order name: Cardiac monitoring; Complete Time: 15:43 3 06/09 15:25 Order name: EKG - Nurse/Tech; Complete Time: 15:43 3 06/09 15:25 Order name: IV Saline Lock; Complete Time: 16:55 3 06/09 15:25 Order name: Labs collected and sent; Complete Time: 16:55 3 06/09 15:25 Order name: O2 Per Protocol; Complete Time: 15:43 3 06/09 15:25 Order name: O2 Sat Monitoring; Complete Time: 15:44 3 Administered Medications: 17:17 Drug: Nitroglycerin Sublingual 0.4 mg Sublingual once; every five minute if needed x3 me1 Route: Sublingual; 17:29 Follow up: Pain 0/10 Adult; Response: No adverse reaction; Marked relief of symptoms; me1 Pain is decreased Disposition Summary: 06/10/23 19:23 Left Against Medical Advice Notes: Location: Home(06/10/23 19:23) sp3 Problem: an acute exacerbation(06/10/23 19:23) sp3 Symptoms: have worsened(06/10/23 19:23) sp3 Condition: Stable(06/10/23 19:23) sp3 Diagnosis - Chest pain, NSTEMI sp3 Followup: sp3 - With: Private Physician - When: Upon discharge from the Emergency Department - Reason: Continuance of care Signatures: Dispatcher [employer] EDMS Hoa Eddy MD MD sp3 Nohemy Clark RN RN me1 Corrections: (The following items were deleted from the chart) 15:31 15:29 ED course: 48-year-old female with extensive past medical history well-documented sp3 in multiple visits to the ED now with recurrent and continued chest pain. Differential diagnosis includes acute coronary syndrome, angina, electrolyte abnormality, among others. I am not highly suspicious for pulmonary embolism, pneumonia, vascular pathology or any other critical process at this time. Disposition probable admission.. sp3 19:23 17:27 Inpatient Admission sp3 sp3 19:23 17:27 Ermias Kitchen sp3 sp3 19: 17:27 Telemetry/MedSurg (Inpatient) sp3 sp3 19: 17:27 Stable sp3 sp3 19: 17:27 an acute exacerbation sp3 sp3 19: 17:27 have worsened sp3 sp3 19:23 17:27 Standard sp3 sp3 19: 17:27 sp3 sp3 19: 17:27 Chest pain, NSTEMI sp3 sp3
--- NOTE | 2023-06-10 17:28 | ER ---
Nurse's Notes [facility] Name: Geetha Khan Age: 48 yrs Sex: Female : 1975 Arrival Date: 06/10/2023 Time: 15:22 Bed 16 Private MD: Diagnosis: Chest pain, NSTEMI Presentation: 06/09 15:25 Chief complaint: EMS states: toned out for chest pain. Midsternal 10/10. Coronavirus me1 screen: Vaccine status: Patient reports being unvaccinated. Ebola Screen: No symptoms or risks identified at this time. Initial Sepsis Screen: Does the patient meet any 2 criteria? No. Patient's initial sepsis screen is negative. Does the patient have a suspected source of infection? No. Patient's initial sepsis screen is negative. Risk Assessment: Do you want to hurt yourself or someone else? Patient reports no desire to harm self or others. Onset of symptoms was June 10, 2023. 15:25 Method Of Arrival: EMS: [facility] [place]:25 Acuity: CORRINA 2 me1 Triage Assessment: 15:27 General: Appears uncomfortable, unkempt, well developed, well nourished, Behavior is me1 calm, cooperative, appropriate for age, Reports chest pain that started earlier today. Pain is midsternal 10/10, does not radiate. Denies SOB. Denies nausea. Pain: Complains of pain in chest Pain does not radiate. Pain currently is 10 out of 10 on a pain scale. Quality of pain is described as sharp, Pain began suddenly, Is continuous. Neuro: Level of Consciousness is awake, alert, obeys commands, Oriented to person, place, time, situation, Appropriate for age left sided weakness from previous CVA. Cardiovascular: Patient's skin is warm and dry. Cardiovascular: Reports chest pain, Denies nausea, shortness of breath. Respiratory: Respiratory effort is even, unlabored, Respiratory pattern is regular, symmetrical. GI: No deficits noted. : Reports incontinence. Derm: Skin is pink, warm \T\ dry. Musculoskeletal: left sided weakness from previous CVA. 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 - Social history:: Smoking status: Patient reports the use of cigarette tobacco products, smokes one-half pack cigarettes per day. Screenin:31 [facility] ED Fall Risk Assessment (Adult) History of falling in the last 3 months, me1 including since admission No falls in past 3 months (0 pts) Confusion or Disorientation No (0 pts) Intoxicated or Sedated No (0 pts) Impaired Gait No (0 pts) Mobility Assist Device Used No (0 pt) Altered Elimination No (0 pt) Score/Fall Risk Level 0 - 2 = Low Risk Maintained a safe environment, Provided non-skid footwear, Hourly rounding (assess needs \T\ fall precautionary measures) done. Abuse screen: Denies threats or abuse. Nutritional screening: No deficits noted. Tuberculosis screening: No symptoms or risk factors identified. Assessment: 15:31 General: See triage assessment. . Pain: Complains of pain in chest Pain does not me1 radiate. Pain currently is 10 out of 10 on a pain scale. Quality of pain is described as sharp, Pain began suddenly, Is continuous. 16:30 Reassessment: No changes from previously documented assessment. Patient is alert, me1 oriented x 3, equal unlabored respirations, skin warm/dry/pink. 17:30 Reassessment: No changes from previously documented assessment. Patient is alert, me1 oriented x 3, equal unlabored respirations, skin warm/dry/pink. Patient states feeling better. 19:23 General: Patient verbalized that she wanted to go home. Informed Dr Eddy. Patient me1 signed AMA form. Charge nurse, YANETH Landa informed as well. Attempted to call patient's to ask him to come pickling solution maker patient, no answer, left a message on voicemail. Patient agreed to continue trying to call him from the lobby while waiting. . Vital Signs: 15:25 BP 117 / 78; Pulse 72; Resp 16; Temp 98.4(O); Pulse Ox 94% on R/A; Weight 65.77 kg; me1 Height 5 ft. 2 in. ; Pain 10/10; 15:30 BP 108 / 77; Pulse 76; Resp 16; Pulse Ox 99% on R/A; me1 15:50 BP 138 / 97; Pulse 67; Resp 15; Pulse Ox 100% on R/A; me1 17:00 BP 103 / 81; Pulse 71; Resp 11; Pulse Ox 100% on R/A; me1 17:29 Pain 0/10; me1 18:00 BP 120 / 99; Pulse 56; Resp 21; Pulse Ox 98% on R/A; me1 19:00 BP 116 / 69; Pulse 74; Resp 16; Pulse Ox 100% on R/A; me1 15:25 Body Mass Index 26.52 (65.77 kg, 157.48 cm) me1 15:25 Pain Scale: Adult me1 17:29 Pain Scale: Adult me1 ED Course: 15:24 Patient arrived in ED. me1 15:25 Hoa Eddy MD is Attending Physician. sp3 15:27 Triage completed. me1 15:27 Arm band placed on Patient placed in an exam room. me1 15:31 Patient has correct armband on for positive identification. Bed in low position. Call me1 light in reach. Side rails up X 1. Provided Education on: POC. Verbalized understanding. . Client placed on continuous cardiac and pulse oximetry monitoring. NIBP monitoring applied. electronic device monitor on. Pulse ox on. NIBP on. 15:31 No provider procedures requiring assistance completed. Patient maintains SpO2 me1 saturation greater than 95% on room air. 16:07 XRAY Chest (1 view) In Process Unspecified. EDMS 16:10 Nohemy Clark, YANETH is Primary Nurse. me1 16:48 Initial lab(s) drawn, by me, sent to lab. Inserted saline lock: 22 gauge in right hand, aa5 using aseptic technique. Blood collected. 17:27 Ermias Kitchen is Hospitalizing Provider. sp3 Administered Medications: 17:17 Drug: Nitroglycerin Sublingual 0.4 mg Sublingual once; every five minute if needed x3 me1 Route: Sublingual; 17:29 Follow up: Pain 0/10 Adult; Response: No adverse reaction; Marked relief of symptoms; me1 Pain is decreased Medication: 15:31 VIS not applicable for this client. me1 Outcome: 17:27 Decision to Hospitalize by Provider. sp3 19:29 Patient left the ED. me1 Signatures: Dispatcher [employer] Rosemarie Hernandez RN RN aa5 Hoa Eddy MD MD sp3 Nohemy Clark RN RN me1
[2023-06-10 20:41] VITALS: BP 116/69; TEMP 98.4; O2SAT 100
--- NOTE | 2023-06-11 17:04 | EKG ---
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
== END | disposition left against medical advice (07) ==
LOC: ER 15:22
DX: I21.4 Non-ST elevation (NSTEMI) myocardial infarction (principal); I10 Essential (primary) hypertension; I25.2 Old myocardial infarction; F17.210 Nicotine dependence, cigarettes, uncomplicated; Z86.73 Personal history of transient ischemic attack (TIA), and cerebral infarction without residual deficits; Z88.6 Allergy status to analgesic agent; Z91.013 Allergy to seafood; Z91.018 Allergy to other foods
CPT/HCPCS: 36415; 71045; 80048; 80076; 83735; 83880; 84484; 85025; 85610; 93005; 99285

== ENCOUNTER 2023-06-15 17:53 | Emergency (ER) | payer OTHER ==
[2023-06-15] MEDS ORDERED: NA CHLORIDE 0.9% 500 ML ONE (19:13)
[2023-06-15 19:38] LABS: Absolute Basophils 0.1 K/uL (0-0.5); Absolute Eosinophils 0.6 K/uL (0-0.5); Absolute Lymphocytes (CBC) 2.1 K/uL (0.7-4.9); Absolute Monocytes 0.5 K/uL (0.1-1.3); Absolute Neutrophil 3.3 K/uL (1.8-8.0); Basophils % 1.2 % (0-1.3); Eosinophils % 9.3 % (0-4.4); Hematocrit 32.3 % (36.0-45.0); Hemoglobin 11.3 g/dL (12.0-15.0); Lymphocytes % 31.9 % (15.3-44.8); MCH 32.1 pg (27.0-35.0); MCV 91.7 fL (80-100); MPV 7.6 fL (7.6-11.3); Monocytes % 7.9 % (3.3-12.3); Neutrophils % 49.7 % (41.7-73.7); Nucleated Red Blood Cells % 0.1 % (0-0); Platelets 211 thou/uL (152-406); RBC Red Blood Cell Count 3.52 M/uL (3.86-4.86); Red Cell Distribution Width 12.8 % (12.1-15.2)
[2023-06-15 19:42] LABS: PT Prothrombin Time 10.8 SECONDS (9.5-12.5); Protime INR 0.98
[2023-06-15 19:56] LABS: Albumin 4.1 g/dL (3.4-5.0); Albumin/Globulin Ratio 1.3 (1.1-1.8); Anion Gap 11.5 mEq/L (5.0-15.0); Bilirubin Direct 0.1 mg/dL (0-0.2); Bilirubin Indirect, Calculated 0.2 mg/dL (0.2-0.8); Bilirubin Total 0.3 mg/dL (0.2-1.0); Globulin 3.1 g/dL (2.3-3.5); Potassium 4.5 mEq/L (3.5-5.1); Protein, Total 7.2 g/dL (6.4-8.2)
[2023-06-15 19:58] LABS: Magnesium 1.3 mg/dL (1.6-2.4)
[2023-06-15] MEDS ORDERED: MECLIZINE HCL 12.5 MG TAB ONE (19:58)
[2023-06-15] MEDS ORDERED: ACETAMINOPHEN 325 MG TABLET ONE (19:59)
[2023-06-15 20:00] LABS: Troponin High Sensitivity 62.3 pg/mL (<58.9)
[2023-06-15] MEDS ORDERED: Magnesium Sulfate 2gm IVPB 2 G/50 ML BAG IV ONE (20:09)
--- NOTE | 2023-06-15 20:29 | RAD REPORT ---
EXAM DESCRIPTION: [place] Single View06/15/2023 7:17 pm CLINICAL HISTORY: Nausea/abdominal pain COMPARISON: June 10, 2023 FINDINGS: The lungs appear clear of acute infiltrate. The heart is normal size IMPRESSION: No acute abnormalities displayed
--- NOTE | 2023-06-15 20:33 | RAD REPORT ---
EXAM DESCRIPTION: CT - Head Brain Wo Cont - 06/15/2023 8:21 pm CLINICAL HISTORY: Dizziness COMPARISON: 2022 TECHNIQUE: Computed axial tomography of the head was obtained. IV contrast was not requested. All CT scans are performed using dose optimization technique as appropriate and may include automated exposure control or mA/KV adjustment according to patient size. FINDINGS: The ventricles are normal in caliber No extra-axial fluid collection is noted. Low-density within the right basal ganglia, right internal capsule, right lynette and right bernal radia ta is the sequela an old bleed No acute intracranial bleed Fluid within the sinuses/ mastoids is not seen. IMPRESSION: No acute intracranial abnormality is seen If patient's symptoms persist MRI of the brain would be recommended
--- NOTE | 2023-06-15 23:26 | EDPHYS ---
Physician Documentation [facility] Name: Geetha Khan Age: 48 yrs Sex: Female : 1975 Arrival Date: 06/15/2023 Time: 17:53 Bed 2 Private MD: ED Physician Kishor Hoyos HPI: 06/14 18:45 This 48 yrs old Female presents to ER via EMS with complaints of Nausea/Vomiting. cp 18:45 The patient presents to the emergency department with nausea, that is moderate, cp vomiting, that is intermittent. 18:45 Onset: The symptoms/episode began/occurred 3 day(s) ago. Possible causes: unknown. cp Associated signs and symptoms: Pertinent positives: dizziness, Pertinent negatives: constipation, diarrhea, fever, GI bleeding, chest pain. Severity of symptoms: in the emergency department the symptoms are unchanged despite EMS interventions. 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 - Social history:: Smoking status: Patient reports the use of cigarette tobacco products. ROS: 18:50 Constitutional: Negative for body aches, chills, fever, poor PO intake, cp 18:50 Eyes: Negative for injury, pain, redness, and discharge, cp 18:50 ENT: Negative for drainage from ear(s), ear pain, sore throat, difficulty swallowing, difficulty handling secretions, 18:50 Cardiovascular: Negative for chest pain, edema, palpitations, 18:50 Respiratory: Negative for cough, shortness of breath, wheezing, 18:50 Abdomen/GI: Positive for nausea and vomiting, Negative for diarrhea, constipation, hematemesis, 18:50 Back: Negative for pain at rest, pain with movement, 18:50 Neuro: Positive for dizziness, Negative for altered mental status, headache, syncope, near syncope, weakness, 18:50 All other systems are negative, Exam: 18:55 Constitutional: The patient appears in no acute distress, alert, awake, cp non-diaphoretic, non-toxic, well developed, well nourished, 18:55 Head/Face: Normocephalic, atraumatic. cp 18:55 Eyes: Periorbital structures: appear normal, Conjunctiva: normal, no exudate, no injection, Sclera: no appreciated abnormality, Lids and lashes: appear normal, bilaterally, 18:55 ENT: External ear(s): are unremarkable, Nose: is normal, Mouth: Lips: moist, Oral mucosa: pink and intact, moist, Posterior pharynx: Airway: no evidence of obstruction, patent, 18:55 Neck: ROM/movement: is normal, is supple, without pain, no range of motions limitations, 18:55 Chest/axilla: Inspection: normal, 18:55 Cardiovascular: Rate: normal, Rhythm: regular, Edema: ankle edema, that is very mild, JVD: is not appreciated, 18:55 Respiratory: the patient does not display signs of respiratory distress, Respirations: normal, no use of accessory muscles, no retractions, labored breathing, is not present, Breath sounds: are clear throughout, no decreased breath sounds, no stridor, no wheezing, 18:55 Abdomen/GI: Inspection: abdomen appears normal, Palpation: abdomen is soft and non-tender, in all quadrants, 18:55 Neuro: Orientation: to person, place \T\ time. Mentation: is normal, Motor: no acute changes, left side weakness from previous CVA, Sensation: no acute changes, 19:23 ECG was reviewed by the Attending Physician. cp Vital Signs: 18:19 BP 87 / 57; Pulse 72; Resp 18 S; Temp 97.6(O); Pulse Ox 100% on R/A; Weight 72.57 kg as6 (R); Height 5 ft. 3 in. (R); Pain 0/10; 19:17 BP 94 / 77; Pulse 73; Pulse Ox 100% ; tm6 19:35 BP 89 / 57; Pulse 77; Resp 23; Pulse Ox 100% on R/A; Pain 0/10; tm6 20:19 BP 98 / 82; Pulse 75; Resp 13; Pulse Ox 100% on R/A; Pain 0/10; tm6 21:24 BP 115 / 97; Pulse 74; Pulse Ox 100% on R/A; Pain 0/10; tm6 18:19 Body Mass Index 28.34 (72.57 kg, 160.02 cm) as6 18:19 Pain Scale: Adult as6 19:35 Pain Scale: Adult tm6 20:19 Pain Scale: Adult tm6 21:24 Pain Scale: Adult tm6 MDM: 18:28 Patient medically screened. 20:00 Differential diagnosis: gastritis, cholecystitis, viral gastroenteritis, cp gastroenteritis, dehydration, NE. 23:26 Data reviewed: vital signs, nurses notes, lab test result(s), EKG, radiologic studies, cp CT scan, plain films, and as a result, I will discharge patient. 23:26 I considered the following discharge prescriptions or medication management in the emergency department Medications were administered in the Emergency Department. See MAR. Independent interpretation of the following test(s) in the Emergency Department EKG: See my EKG interpretation above. Counseling: I had a detailed discussion with the patient and/or guardian regarding the historical points, exam findings, and any diagnostic results supporting the discharge/admit diagnosis, lab results, radiology results, to return to the emergency department if symptoms worsen or persist or if there are any questions or concerns that arise at home. Response to treatment: the patient's symptoms have markedly improved after treatment, and as a result, I will discharge patient. 06/14 18: Order name: Basic Metabolic Panel; Complete Time: 20:06 06/14 20:06 Interpretation: Normal except: NA 135; BUN 43; CRE 1.91; GFR 32. cp 06/14 18: Order name: CBC with Diff; Complete Time: 19:47 06/14 19:47 Interpretation: Normal except: RBC 3.52; HGB 11.3; HCT 32.3; EOSINOPHIL % 9.3; EOSA 0.6.cp 06/14 18: Order name: LFT's; Complete Time: 20:06 cp 06/14 20:06 Interpretation: Normal except: ALK 209. cp 06/14 18: Order name: Magnesium; Complete Time: 20:06 cp 06/14 20:06 Interpretation: Abnormal: MG 1.3. cp 06/14 18:29 Order name: NT PRO-BNP; Complete Time: 20:06 cp 06/14 18: Order name: PT-INR; Complete Time: 19:47 cp 06/14 18:29 Order name: Troponin HS; Complete Time: 20:06 cp 06/14 20:06 Interpretation: Abnormal: Troponin HS 62.3. cp 06/14 21:25 Order name: Troponin HS; Complete Time: 23:25 cp 06/14 18:29 Order name: XRAY Chest (1 view); Complete Time: 21:03 cp 06/14 21:03 Interpretation: Report review. cp 06/14 19:48 Order name: CT Head Brain wo Cont; Complete Time: 21:03 cp 06/14 21:03 Interpretation: Report reviewed. cp 06/14 18:29 Order name: Cardiac monitoring; Complete Time: 19:33 cp 06/14 18:29 Order name: EKG - Nurse/Tech; Complete Time: 19:33 cp 06/14 18:29 Order name: IV Saline Lock; Complete Time: 19:27 cp 06/14 18:29 Order name: Labs collected and sent; Complete Time: 19:27 cp 06/14 18:29 Order name: O2 Per Protocol; Complete Time: 19:17 cp 06/14 18:29 Order name: O2 Sat Monitoring; Complete Time: 19:17 cp 06/14 21:52 Order name: PO challenge; Complete Time: 21:54 cp EC:23 Rate is 76 beats/min. Rhythm is regular. NM interval is normal. QRS interval is normal. cp QT interval is normal. T waves are Inverted in leads I, II, aVL, V5, V6. Interpreted by me. Reviewed by me. Administered Medications: 19:27 Drug: NS 0.9% IV 500 ml IV at bolus once Route: IV; Rate: bolus; Site: right tm6 antecubital; 20:27 Follow up: IV Status: Completed infusion; IV Intake: 500ml tm6 20:05 Drug: Meclizine PO 25 mg PO once Route: PO; tm6 20:06 Not Given (Patient Refused): [id number] mg PO once tm6 20:26 Drug: Magnesium Sulfate IVPB 2 grams IVPB once over 2 hrs Route: IVPB; Infused Over: 2 tm6 hrs; Site: right antecubital; Disposition Summary: 06/15/23 23:26 Discharge Ordered Notes: Location: Home cp Problem: new cp Symptoms: have improved cp Condition: Stable cp Diagnosis - Nausea with vomiting, unspecified cp - Dizziness and giddiness cp Followup: cp - With: Private Physician - When: 2 - 3 days - Reason: Recheck today's complaints Discharge Instructions: - Discharge Summary Sheet cp - Dizziness cp - Nausea and Vomiting, Adult cp Forms: - Medication Reconciliation Form cp - Thank You Letter cp - Antibiotic Education cp - Prescription Opioid Use cp - Patient Portal Instructions cp - Leadership Thank You Letter cp Prescriptions: - Meclizine 25 mg Oral Tablet - take 1 tablet ORAL route every 8 hours As needed; 30 tablet; Refills: 0, cp Product Selection Permitted - Zofran 4 mg Oral Tablet - take 1 tablet ORAL route every 12 hours As needed; 20 tablet; Refills: 0, cp Product Selection Permitted Addendum: 06/17/2023 10:09 I was immediately available on-site in the Emergency Department for consultation in the m s3 care of the patient. Signatures: Dispatcher [employer] EDMS Michael Nguyen PA PA cp Sims, Marcus, DO DO ms3 Florentin Lester RN RN as6 Greg Allen RN RN tm6 Corrections: (The following items were deleted from the chart) 06/14 18:30 18:30 BASIC METABOLIC PANEL+C.LAB.BRZ ordered. EDMS EDMS 18:30 18:30 CBC+H.LAB.BRZ ordered. EDMS EDMS 18:30 18:30 HEPATIC FUNCTION+C.LAB.BRZ ordered. EDMS EDMS 18:30 18:30 MAGNESIUM+C.LAB.BRZ ordered. EDMS EDMS 18:30 18:30 PROBNP+C.LAB.BRZ ordered. EDMS EDMS 18:30 18:30 PROTIME (+INR)+COAG.LAB.BRZ ordered. EDMS EDMS 18:30 18:30 Troponin High Sensitivity+C.LAB.BRZ ordered. EDMS EDMS 18:30 18:30 Chest Single View+RAD.RAD.BRZ ordered. EDWY EDMS 06/15 23:24 06/14 18:45 Associated signs and symptoms: Pertinent negatives: constipation, diarrhea, cp fever, GI bleeding, chest pain, cp 06/15 23:24 06/14 18:50 Neuro: Negative for altered mental status, dizziness, headache, syncope, cp near syncope, weakness, cp
--- NOTE | 2023-06-15 23:26 | ER ---
Nurse's Notes [facility] Name: Geetha Khan Age: 48 yrs Sex: Female : 1975 Arrival Date: 06/15/2023 Time: 17:53 Bed 2 Private MD: Diagnosis: Nausea with vomiting, unspecified;Dizziness and giddiness Presentation: 06/14 17:58 Chief complaint: EMS states: called out for nausea. Coronavirus screen: At this time, as6 the client does not indicate any symptoms associated with coronavirus-19. Ebola Screen: No symptoms or risks identified at this time. Risk Assessment: Do you want to hurt yourself or someone else? Patient reports no desire to harm self or others. Onset of symptoms was June 15, 2023. 17:58 Method Of Arrival: EMS: [facility] as6 17:58 Acuity: CORRINA 3 as6 18:19 Initial Sepsis Screen: Does the patient meet any 2 criteria? No. Patient's initial as6 sepsis screen is negative. Does the patient have a suspected source of infection? No. Patient's initial sepsis screen is negative. 18:21 Chief complaint: Patient states: pt reports nausea and vomiting for 3 days. as6 Triage Assessment: 18:21 General: Appears in no apparent distress. Behavior is calm, cooperative. Pain: Denies as6 pain. GI: Reports nausea, vomiting. 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 - Social history:: Smoking status: Patient reports the use of cigarette tobacco products. Screenin:19 [facility] ED Fall Risk Assessment (Adult) History of falling in the last 3 months, tm6 including since admission No falls in past 3 months (0 pts) Confusion or Disorientation No (0 pts) Intoxicated or Sedated No (0 pts) Impaired Gait No (0 pts) Mobility Assist Device Used No (0 pt) Altered Elimination No (0 pt) Score/Fall Risk Level 0 - 2 = Low Risk Oriented to surroundings, Maintained a safe environment. Abuse screen: Denies threats or abuse. Denies injuries from another. Nutritional screening: No deficits noted. Tuberculosis screening: No symptoms or risk factors identified. Assessment: 19:17 General: Appears in no apparent distress. Behavior is calm, cooperative. Pain: Denies tm6 pain. Neuro: Level of Consciousness is awake, alert, obeys commands, Oriented to person, place, time, situation, Reports dizziness. Cardiovascular: Denies chest pain, Patient's skin is warm and dry. Respiratory: Airway is patent Respiratory effort is even, unlabored, Respiratory pattern is regular, symmetrical. GI: Abdomen is flat, non-distended, Abd is soft and non tender X 4 quads. Reports nausea, vomiting. : No signs and/or symptoms were reported regarding the genitourinary system. EENT: No signs and/or symptoms were reported regarding the EENT system. Derm: No signs and/or symptoms reported regarding the dermatologic system. Musculoskeletal: No signs and/or symptoms reported regarding the musculoskeletal system. 20:19 Reassessment: Patient and/or family updated on plan of care and expected duration. Pain tm6 level reassessed. Patient is alert, oriented x 3, equal unlabored respirations, skin warm/dry/pink. 21:24 Reassessment: Patient and/or family updated on plan of care and expected duration. Pain tm6 level reassessed. Patient is alert, oriented x 3, equal unlabored respirations, skin warm/dry/pink. 21:25 Reassessment: Patient states feeling better. tm6 23:47 Reassessment: Patient appears in no apparent distress at this time. Patient and/or jb4 family updated on plan of care and expected duration. Pain level reassessed. Patient is alert, oriented x 3, equal unlabored respirations, skin warm/dry/pink. Vital Signs: 18:19 BP 87 / 57; Pulse 72; Resp 18 S; Temp 97.6(O); Pulse Ox 100% on R/A; Weight 72.57 kg as6 (R); Height 5 ft. 3 in. (R); Pain 0/10; 19:17 BP 94 / 77; Pulse 73; Pulse Ox 100% ; tm6 19:35 BP 89 / 57; Pulse 77; Resp 23; Pulse Ox 100% on R/A; Pain 0/10; tm6 20:19 BP 98 / 82; Pulse 75; Resp 13; Pulse Ox 100% on R/A; Pain 0/10; tm6 21:24 BP 115 / 97; Pulse 74; Pulse Ox 100% on R/A; Pain 0/10; tm6 18:19 Body Mass Index 28.34 (72.57 kg, 160.02 cm) as6 18:19 Pain Scale: Adult as6 19:35 Pain Scale: Adult tm6 20:19 Pain Scale: Adult tm6 21:24 Pain Scale: Adult tm6 ED Course: 17:57 Patient arrived in ED. ra3 17:58 Triage completed. as6 17:59 Arm band placed on. as6 18:00 Michael Nguyen PA is PHCP. cp 18:00 Kishor Hoyos DO is Attending Physician. cp 19:10 Greg Allen, YANETH is Primary Nurse. tm6 19:15 Client placed on continuous cardiac and pulse oximetry monitoring. NIBP monitoring kmf applied. 19:19 XRAY Chest (1 view) In Process Unspecified. EDMS 19:19 Patient has correct armband on for positive identification. Placed in gown. Bed in low tm6 position. Call light in reach. Side rails up X2. Provided Education on: plan of care. airplane captain on. Pulse ox on. NIBP on. Door closed. Noise minimized. Warm blanket given. 19:27 Basic Metabolic Panel Sent. tm6 19:27 CBC with Diff Sent. tm6 19:27 LFT's Sent. tm6 19:27 Magnesium Sent. tm6 19:27 NT PRO-BNP Sent. tm6 19:27 PT-INR Sent. tm6 19:27 Troponin HS Sent. tm6 19:31 Initial lab(s) drawn, by ca, sent to lab. EKG done, by ED staff, reviewed by Michael quinterof BERNARDINO. 20:23 CT Head Brain wo Cont In Process Unspecified. EDMS 22:08 Troponin HS Sent. tm6 23:47 No provider procedures requiring assistance completed. IV discontinued, intact, jb4 bleeding controlled, No redness/swelling at site. Pressure dressing applied. Administered Medications: 19:27 Drug: NS 0.9% IV 500 ml IV at bolus once Route: IV; Rate: bolus; Site: right tm6 antecubital; 20:27 Follow up: IV Status: Completed infusion; IV Intake: 500ml tm6 20:05 Drug: Meclizine PO 25 mg PO once Route: PO; tm6 20:06 Not Given (Patient Refused): [id number] mg PO once tm6 20:26 Drug: Magnesium Sulfate IVPB 2 grams IVPB once over 2 hrs Route: IVPB; Infused Over: 2 tm6 hrs; Site: right antecubital; Medication: 19:19 VIS not applicable for this client. tm6 Intake: 20:27 IV: 500ml; Total: 500ml. tm6 Outcome: 23:26 Discharge ordered by MD. cp 23:47 Discharged to home via wheelchair, kinsey 23:47 Condition: stable 23:47 Discharge instructions given to patient, Instructed on discharge instructions, follow up and referral plans. medication usage, Demonstrated understanding of instructions, follow-up care, medications, Prescriptions given X 2, 23:47 Patient left the ED. jb4 Signatures: Dispatcher [employer] EDMS Michael Nguyen PA PA cp Bryson, James, RN RN jb4 Florentin Lester, YANETH RN as6 Phuong Day [facility] Greg Allen RN RN tm6 Renea Gallardo ra3
[2023-06-16 01:57] VITALS: BP 115/97; TEMP 97.6; O2SAT 100
--- NOTE | 2023-06-17 13:43 | EKG ---
Test Date: 2023-06-15 Test Time: 19:17:13 [facility] Representative: PRAVIN MEASUREMENT RESULTS: Intervals: Rate: 76 FL: 184 QRSD: 94 QT: 406 QTc: 456 Success: P: 50 FL: 184 QRS: 9 T: 162 INTERPRETIVE STATEMENTS: Sinus rhythm with sinus arrhythmia with occasional premature ventricular complexes Left ventricular hypertrophy with repolarization abnormality Abnormal ECG Compared to ECG 06/10/2023 15:29:24 Ventricular premature complex(es) now present Electronically Signed On 06-17-23 13:37:34 CDT by Josse Olson
== END 2023-06-15 23:47 | disposition home or self-care (01) ==
LOC: ER 17:53
DX: R11.2 Nausea with vomiting, unspecified (principal); R42 Dizziness and giddiness; I10 Essential (primary) hypertension; Z72.0 Tobacco use; Z88.6 Allergy status to analgesic agent; Z91.013 Allergy to seafood; Z91.018 Allergy to other foods
CPT/HCPCS: 96361; 93005 ×2; 85025; 80048; 36415; 83735; 85610; 80076; 84484 ×2; 83880; 70450; 71045; 96374; 99285; J8597; J3475; J7040

== ENCOUNTER 2023-06-17 19:47 | Emergency (ER) | payer OTHER ==
[2023-06-17 20:37] LABS: Absolute Eosinophils 0.4 K/uL (0-0.5); Absolute Lymphocytes (CBC) 1.5 K/uL (0.7-4.9); Absolute Monocytes 0.4 K/uL (0.1-1.3); Absolute Neutrophil 3.1 K/uL (1.8-8.0); Basophils % 1.1 % (0-1.3); Eosinophils % 8.1 % (0-4.4); Hematocrit 26.5 % (36.0-45.0); Hemoglobin 9.2 g/dL (12.0-15.0); Lymphocytes % 27.8 % (15.3-44.8); MCHC 34.8 g/dL (32.0-36.0); MPV 8.3 fL (7.6-11.3); Monocytes % 7.3 % (3.3-12.3); Neutrophils % 55.7 % (41.7-73.7); Platelets 158 thou/uL (152-406); RBC Red Blood Cell Count 2.88 M/uL (3.86-4.86); Red Cell Distribution Width 12.7 % (12.1-15.2)
[2023-06-17 20:38] LABS: Absolute Basophils 0.1 K/uL (0-0.5)
[2023-06-17 20:40] LABS: PT Prothrombin Time 11.2 SECONDS (9.5-12.5); Protime INR 1.02
[2023-06-17 20:54] LABS: ALT/SGPT 27 U/L (13-56); AST/SGOT 22 U/L (15-37); Albumin 3.5 g/dL (3.4-5.0); Albumin/Globulin Ratio 1.2 (1.1-1.8); Alkaline Phosphatase 158 U/L (45-117); Anion Gap 9.1 mEq/L (5.0-15.0); BUN Blood Urea Nitrogen 22 mg/dL (7-18); Bicarbonate 22 mEq/L (21-32); Bilirubin Direct < 0.1 mg/dL (0-0.2); Bilirubin Indirect, Calculated ND mg/dL (0.2-0.8); Bilirubin Total 0.2 mg/dL (0.2-1.0); Globulin 2.9 g/dL (2.3-3.5); Glomerular Filtration Rate 57 ml/min (=/>90); Glucose Level 89 mg/dL (74-106); Magnesium 1.1 mg/dL (1.6-2.4); NT PRO-BNP 1373 pg/mL (<125); Potassium 4.1 mEq/L (3.5-5.1); Protein, Total 6.4 g/dL (6.4-8.2); Sodium Level 135 mEq/L (136-145)
[2023-06-17 20:55] LABS: Troponin High Sensitivity 59.2 pg/mL (<58.9)
--- NOTE | 2023-06-17 21:00 | RAD REPORT ---
EXAM DESCRIPTION: [place] Single View06/17/2023 8:44 pm CLINICAL HISTORY: Chest pain COMPARISON: April 2023 FINDINGS: Small calcified granulomas within lungs. The lungs appear clear of acute infiltrate. The heart is mildly enlarged IMPRESSION: No acute abnormalities displayed
--- NOTE | 2023-06-17 21:02 | EDPHYS ---
Physician Documentation [facility] Name: Geetha Khan Age: 48 yrs Sex: Female : 1975 Arrival Date: 06/17/2023 Time: 19:47 Bed 20 Private MD: ED Physician Uriel Cannon HPI: 06/16 20:03 This 48 yrs old Other Female presents to ER via EMS with complaints of Chest Pain, sp4 Irregular Pulse. 20:49 48-year-old female presents with acute onset chest pain and irregular pulse. EMS states sp4 patient consumed 3 nitroglycerin prior to arrival. . 20:50 Patient does have extensive past medical history of hypertension.. sp4 20:51 Patient also has history of hemorrhagic CVA, hypothyroidism, COPD, seizure disorder, sp4 CHF, medical noncompliance, asthma, tonsillectomy, , ovarian cystectomy. Patient has history of hemorrhagic CVA with left-sided hemiparesis. Patient is having poor mobility. Patient presented with EMS for palpitations and dizziness chest pain.. Patient's left heart cath from 12/05/2022 has revealed no significant coronary artery disease. . Historical: - Allergies: 20:00 Aspirin; cp4 20:00 CRANBERRY; cp4 20:00 FISH PRODUCT DERIVATIVES; cp4 20:00 GRAPEFRUIT; cp4 20:00 mushrooms; cp4 - Home Meds: 20:00 amlodipine oral [Active]; atorvastatin oral [Active]; dexamethasone 1.5 mg (35 tabs) cp4 Oral tablet [Active]; lisinopril Oral [Active]; metoprolol succinate oral [Active]; - PMHx: 20:00 Asthma; COPD; Cerebrovascular accident; Hypertension; Left arm paralysis and left leg cp4 weakness from previous CVA (Thyroid problem); Myocardial infarction; Seizures; Thyroid problem; - Immunization history:: Adult Immunizations up to date. - Infectious Disease History:: Denies. CDIFF, C. Auris, ESBL, MRSA (w/in 1 year), VRE (w/in 1 year), TB, . - Social history:: Smoking status: Patient denies any tobacco usage or history of. - Family history:: not pertinent. ROS: 20:51 Constitutional: Negative for fever, chills, and weight loss, positive for dizziness, sp4 chest pain, palpitations 20:51 All other systems are negative, Exam: 20:51 Constitutional: This is a well developed, well nourished patient who is awake, alert, sp4 and in no acute distress. Patient is chronically immobilized with old left-sided hemiparesis from prior hemorrhagic CVA. Head/Face: Normocephalic, atraumatic. Eyes: Pupils equal round and reactive to light, extra-ocular motions intact. Lids and lashes normal. Conjunctiva and sclera are not injected. Cornea within normal limits. Periorbital areas with no swelling, redness, or edema. ENT: Nares patent. No nasal discharge, no septal abnormalities noted. Tympanic membranes are normal and external auditory canals are clear. Oropharynx with no redness, swelling, or masses, exudates, or evidence of obstruction, uvula midline. Mucous membranes moist. Neck: Trachea midline, no thyromegaly or masses palpated, and no cervical lymphadenopathy. Supple, full range of motion without nuchal rigidity, or vertebral point tenderness. Chest/axilla: Normal chest wall appearance and motion. Nontender with no deformity. No lesions are appreciated. Cardiovascular: Regular rate and rhythm with a normal S1 and S2. No gallops, murmurs, or rubs. Normal PMI, no JVD. No pulse deficits. Respiratory: Lungs have equal breath sounds bilaterally, clear to auscultation and percussion. No rales, rhonchi or wheezes noted. No increased work of breathing, no retractions or nasal flaring. Abdomen/GI: Soft, with normal bowel sounds. No distension or tympany. No guarding or rebound. No evidence of tenderness throughout. Back: No spinal tenderness. No costovertebral tenderness. Skin: Warm, dry with normal turgor. Normal color with no rashes, no lesions, and no evidence of cellulitis. MS/ Extremity: Pulses equal, no cyanosis. Neurovascular intact. Full, normal range of motion. Neuro: Awake and alert, GCS 15, oriented to person, place, time, and situation. Cranial nerves II-XII grossly intact. There is old standing left-sided hemiparesis from prior CVA Psych: Awake, alert, with orientation to person, place and time. Behavior, mood, and affect are within normal limits 20:59 ECG was reviewed by the Attending Physician. EKG at 2016 sinus rhythm with sp4 occasional PVCs rate 79. Left ventricular hypertrophy , no ST elevation or depression Vital Signs: 19:58 BP 109 / 62; Pulse 18; Resp 18; Temp 98; Pulse Ox 99% ; Pain 0/10; cp4 21:00 BP 133 / 82; Pulse 82; Resp 18; Pulse Ox 100% ; cp4 19:58 Pain Scale: Adult cp4 MDM: 19:58 Patient medically screened. kb 21:00 HEART Score: History: Slightly Suspicious (0), ECG: Non specific repolarization sp4 disturbance / LBTB / PM (1), Age: > 45 and < 65 years (1), Risk Factors: > or = 3 Risk factors for atherosclerotic disease (2), Troponin: > 1 and < 3 x normal limit (1), Total Score = 5. Data reviewed: vital signs, nurses notes, EMS record, old medical records, lab test result(s), EKG, radiologic studies, plain films. ED course: Patient's baseline troponin is about 60-65, today's 59. Patient's wishes to be released home. Based on patient's heart catheter report from 12/05/2022 that has revealed no significant coronary artery disease patient is stable for discharge home. Advised to continue regular home medications. . 06/16 20:04 Order name: Basic Metabolic Panel; Complete Time: 20:58 [facility] 06/16 20:04 Order name: CBC with Diff; Complete Time: 20:58 [facility] 06/16 20:04 Order name: LFT's; Complete Time: 20:58 [facility] 06/16 20:04 Order name: Magnesium; Complete Time: 20:58 [facility] 06/16 20:04 Order name: NT PRO-BNP; Complete Time: 20:58 [facility] 06/16 20:04 Order name: PT-INR; Complete Time: 20:58 [facility] 06/16 20:04 Order name: Troponin HS; Complete Time: 20:58 [facility] 06/16 20:04 Order name: XRAY Chest (1 view); Complete Time: 21:03 [facility] 06/16 20:04 Order name: Cardiac monitoring; Complete Time: 20:07 [facility] 06/16 20:04 Order name: EKG - Nurse/Tech; Complete Time: 20:18 [facility] 06/16 20:04 Order name: IV Saline Lock; Complete Time: 20:19 sp4 06/16 20:04 Order name: Labs collected and sent; Complete Time: 20:19 sp4 06/16 20:04 Order name: O2 Per Protocol; Complete Time: 20: sp4 06/16 20:04 Order name: O2 Sat Monitoring; Complete Time: 20: sp4 EC:59 Rate is 79 beats/min. Rhythm is regular, Normal Sinus Rhythm with Occasional PVCs. QRS sp4 [place] is Normal. [place] interval is normal. QRS interval is normal. QT interval is normal. No ST changes noted. Clinical impression: No evidence of ischemia. Interpreted by me. Reviewed by me. Administered Medications: 20:57 Not Given (Patient Refused): ns 0.9% 1000 ml IV at 1 bolus Per protocol; 1000 mL bolus cp4 Disposition Summary: 06/17/23 21:02 Discharge Ordered Notes: Location: Home sp4 Problem: new sp4 Symptoms: have improved sp4 Condition: Stable sp4 Diagnosis - Chest pain, unspecified sp4 - Complications of immobility. sp4 Followup: sp4 - With: Private Physician - When: 7 - 10 days - Reason: Recheck today's complaints Discharge Instructions: - Discharge Summary Sheet sp4 - Nonspecific Chest Pain, Adult sp4 Forms: - Patient Portal Instructions sp4 Signatures: Dispatcher [employer] Kathy Hines FNP-C FNP-Uriel Do MD MD sp4 Yasmeen Vasquez cp4 Corrections: (The following items were deleted from the chart) 20:04 20:04 BASIC METABOLIC PANEL+C.LAB.BRZ ordered. EDMS EDMS 20:04 20:04 CBC+H.LAB.BRZ ordered. EDMS EDMS 20:04 20:04 HEPATIC FUNCTION+C.LAB.BRZ ordered. EDMS EDMS 20:04 20:04 MAGNESIUM+C.LAB.BRZ ordered. EDMS EDMS 20:04 20:04 PROBNP+C.LAB.BRZ ordered. EDMS EDMS 20:04 20:04 PROTIME (+INR)+COAG.LAB.BRZ ordered. EDMS EDMS 20:04 20:04 Troponin High Sensitivity+C.LAB.BRZ ordered. EDMS EDMS 20:04 20:04 Chest Single View+RAD.RAD.BRZ ordered. EDMS EDMS
--- NOTE | 2023-06-17 21:02 | ER ---
Nurse's Notes [facility] Name: Geetha Khan Age: 48 yrs Sex: Female : 1975 Arrival Date: 06/17/2023 Time: 19:47 Bed 20 Private MD: Diagnosis: Chest pain, unspecified;Complications of immobility. Presentation: 06/16 19:58 Chief complaint: EMS states: of hypotension. Patient reportedly took 3 nitro because cp4 she was "dizzy and heart was racing". Coronavirus screen: Client denies travel out of the [place] in the last 14 days. At this time, the client does not indicate any symptoms associated with coronavirus-19. Ebola Screen: Patient negative for fever greater than or equal to 101.5 degrees Fahrenheit, and additional compatible Ebola Virus Disease symptoms Patient denies exposure to infectious person. Patient denies travel to an Ebola-affected area in the 21 days before illness onset. No symptoms or risks identified at this time. Initial Sepsis Screen: Does the patient meet any 2 criteria? No. Patient's initial sepsis screen is negative. Does the patient have a suspected source of infection? No. Patient's initial sepsis screen is negative. Risk Assessment: Do you want to hurt yourself or someone else? Patient reports no desire to harm self or others. Onset of symptoms was June 17, 2023. 19:58 Method Of Arrival: EMS: [facility] 19:58 Acuity: CORRINA 3 cp4 Triage Assessment: 20:00 General: Appears in no apparent distress. Behavior is calm, cooperative, appropriate cp4 for age. Pain: Denies pain. Cardiovascular: Reports lightheadedness, Denies chest pain, shortness of breath. Historical: - Allergies: 20:00 Aspirin; cp4 20:00 CRANBERRY; cp4 20:00 FISH PRODUCT DERIVATIVES; cp4 20:00 GRAPEFRUIT; cp4 20:00 mushrooms; cp4 - Home Meds: 20:00 amlodipine oral [Active]; atorvastatin oral [Active]; dexamethasone 1.5 mg (35 tabs) cp4 Oral tablet [Active]; lisinopril Oral [Active]; metoprolol succinate oral [Active]; - PMHx: 20:00 Asthma; COPD; Cerebrovascular accident; Hypertension; Left arm paralysis and left leg cp4 weakness from previous CVA (Thyroid problem); Myocardial infarction; Seizures; Thyroid problem; - Immunization history:: Adult Immunizations up to date. - Infectious Disease History:: Denies. CDIFF, C. Auris, ESBL, MRSA (w/in 1 year), VRE (w/in 1 year), TB, . - Social history:: Smoking status: Patient denies any tobacco usage or history of. - Family history:: not pertinent. Screenin:05 [facility] ED Fall Risk Assessment (Adult) History of falling in the last 3 months, cp4 including since admission No falls in past 3 months (0 pts) Confusion or Disorientation No (0 pts) Intoxicated or Sedated No (0 pts) Impaired Gait No (0 pts) Mobility Assist Device Used No (0 pt) Altered Elimination No (0 pt) Score/Fall Risk Level 0 - 2 = Low Risk Oriented to surroundings, Maintained a safe environment, Assessed \\T\\ reinforced patient's understanding of fall precautions, Hourly rounding (assess needs \\T\\ fall precautionary measures) done. Abuse screen: Denies threats or abuse. Nutritional screening: No deficits noted. Tuberculosis screening: No symptoms or risk factors identified. Assessment: 20:05 Reassessment: No changes from previously documented assessment. Pain: Denies pain. Pain cp4 does not radiate. Pain began no pain. Vital Signs: 19:58 BP 109 / 62; Pulse 18; Resp 18; Temp 98; Pulse Ox 99% ; Pain 0/10; cp4 21:00 BP 133 / 82; Pulse 82; Resp 18; Pulse Ox 100% ; cp4 19:58 Pain Scale: Adult cp4 ED Course: 19:54 Patient arrived in ED. jj6 19:58 Yasmeen Vasquez is Primary Nurse. cp4 20:00 Triage completed. cp4 20:00 Arm band placed on right wrist. Patient placed in an exam room, on a stretcher. cp4 20:03 Uriel Cannon MD is Attending Physician. sp4 20:05 Placed in gown. Bed in low position. Call light in reach. Side rails up X2. Client cp4 placed on continuous cardiac and pulse oximetry monitoring. NIBP monitoring applied. tattoo artist on. Cleaned of incontinence. 20:05 No provider procedures requiring assistance completed. Patient maintains SpO2 cp4 saturation greater than 95% on room air. 20:16 EKG done, by ED staff, reviewed by Uriel Cannon MD. kmf 20:19 Basic Metabolic Panel Sent. cp4 20:19 CBC with Diff Sent. cp4 20:19 LFT's Sent. cp4 20:19 Magnesium Sent. cp4 20:19 NT PRO-BNP Sent. cp4 20:19 PT-INR Sent. cp4 20:19 Troponin HS Sent. cp4 20:46 XRAY Chest (1 view) In Process Unspecified. EDMS 21:25 Provided Education on: hypotension. cp4 21:25 intact, bleeding controlled, No redness/swelling at site. Pressure dressing applied. cp4 Administered Medications: 20:57 Not Given (Patient Refused): ns 0.9% 1000 ml IV at 1 bolus Per protocol; 1000 mL bolus cp4 Medication: 20:05 VIS not applicable for this client. cp4 Outcome: 21:02 Discharge ordered by MD. sp4 21:25 Discharged to home via wheelchair, cp4 21:25 Condition: stable 21:25 Discharge instructions given to patient, Instructed on discharge instructions, follow up and referral plans. Demonstrated understanding of instructions, follow-up care, 21:26 Patient left the ED. cp4 Signatures: Dispatcher [employer] EDMS Bia Garcia jjUriel Rivero MD MD sp4 Yasmeen Vasquez cp4 Phuong Day f
[2023-06-18 04:44] VITALS: BP 133/82; TEMP 98; O2SAT 100
--- NOTE | 2023-06-18 13:28 | EKG ---
Test Date: 2023-06-17 Test Time: 20:16:51 Deck Hand: JONSA MEASUREMENT RESULTS: Intervals: Rate: 79 NE: 188 QRSD: 94 QT: 398 QTc: 456 [place]: P: 65 NE: 188 QRS: 25 T: 147 INTERPRETIVE STATEMENTS: Sinus rhythm with occasional premature ventricular complexes Left ventricular hypertrophy with repolarization abnormality Abnormal ECG Compared to ECG 06/15/2023 19:17:13 Sinus arrhythmia no longer present Electronically Signed On 06-18-23 13:27:08 CDT by Josse Olson
== END 2023-06-17 21:26 | disposition home or self-care (01) ==
LOC: ER 19:47
DX: R07.9 Chest pain, unspecified (principal); G81.94 Hemiplegia, unspecified affecting left nondominant side; M62.3 Immobility syndrome (paraplegic); Z86.73 Personal history of transient ischemic attack (TIA), and cerebral infarction without residual deficits; I10 Essential (primary) hypertension; Z88.6 Allergy status to analgesic agent; Z91.013 Allergy to seafood; Z91.018 Allergy to other foods
CPT/HCPCS: 36415; 71045; 80048; 80076; 83735; 83880; 84484; 85025; 85610; 93005; 99285

== ENCOUNTER 2023-06-19 20:06 | Emergency (ER) | payer OTHER ==
--- NOTE | 2023-06-19 21:18 | EDPHYS ---
Physician Documentation [facility] Name: Geetha Khan Age: 48 yrs Sex: Female : 1975 Arrival Date: 06/19/2023 Time: 20:06 Bed DX3 Private MD: ED Physician Uriel Cannon HPI: 06/18 20:13 This 48 yrs old Female presents to ER via EMS with complaints of Dizziness. sp4 23:32 EMS reports that patient has also complained of chest pain while in the route. . sp4 23:33 Patient reports he 06/17/2023 and had a full cardiac workup which was essentially sp4 negative for ACS. On evaluation patient states she is no longer dizzy and denied any chest pain.. 23:43 Patient's left heart cath from 12/05/2022 has revealed no significant coronary artery sp4 disease. .. Historical: - Allergies: 20:12 Aspirin; mb9 20:12 CRANBERRY; mb9 20:12 FISH PRODUCT DERIVATIVES; mb9 20:12 GRAPEFRUIT; mb9 20:12 mushrooms; mb9 - Home Meds: 20:12 metoprolol succinate oral [Active]; lisinopril Oral [Active]; mb9 - PMHx: 20:12 Asthma; Cerebrovascular accident; COPD; Hypertension; Left arm paralysis and left leg mb9 weakness from previous CVA (Thyroid problem); Seizures; Myocardial infarction; Thyroid problem; - Immunization history:: Adult Immunizations up to date. - Infectious Disease History:: Denies. - Social history:: Smoking status: Patient reports the use of cigarette tobacco products. - Family history:: not pertinent. ROS: 23:33 Constitutional: Negative for fever, chills, and weight loss, positive dizziness , sp4 positive chest pain Eyes: Negative for injury, pain, redness, and discharge, 23:33 All other systems are negative, Exam: 23:33 Constitutional: This is a well developed, well nourished patient who is awake, alert, sp4 and in no acute distress. Patient had longstanding left-sided hemiparesis from prior CVA. Poor mobility, ambulates via wheelchair Head/Face: Normocephalic, atraumatic. Eyes: Pupils equal round and reactive to light, extra-ocular motions intact. Lids and lashes normal. Conjunctiva and sclera are not injected. Cornea within normal limits. Periorbital areas with no swelling, redness, or edema. ENT: Nares patent. No nasal discharge, no septal abnormalities noted. Tympanic membranes are normal and external auditory canals are clear. Oropharynx with no redness, swelling, or masses, exudates, or evidence of obstruction, uvula midline. Mucous membranes moist. Neck: Trachea midline, no thyromegaly or masses palpated, and no cervical lymphadenopathy. Supple, full range of motion without nuchal rigidity, or vertebral point tenderness. Chest/axilla: Normal chest wall appearance and motion. Nontender with no deformity. No lesions are appreciated. Cardiovascular: Regular rate and rhythm with a normal S1 and S2. No gallops, murmurs, or rubs. Normal PMI, no JVD. No pulse deficits. Respiratory: Lungs have equal breath sounds bilaterally, clear to auscultation and percussion. No rales, rhonchi or wheezes noted. No increased work of breathing, no retractions or nasal flaring. Abdomen/GI: Soft, with normal bowel sounds. No distension or tympany. No guarding or rebound. No evidence of tenderness throughout. Back: No spinal tenderness. No costovertebral tenderness. Skin: Warm, dry with normal turgor. Normal color with no rashes, no lesions, and no evidence of cellulitis. MS/ Extremity: Pulses equal, no cyanosis. Neurovascular intact. Long standing Left-sided hemiparesis Neuro: Awake and alert, GCS 15, oriented to person, place, time, and situation. Left hemiparesis from prior CVA otherwise no new neurologic deficits. 23:33 ECG was reviewed by the Attending Physician. EKG at 2021, sinus rhythm with occasional premature ventricular complexes at the rate of 81 left ventricular hypertrophy Vital Signs: 20:10 BP 116 / 78; Pulse 76; Resp 16; Temp 98.1; Pulse Ox 98% on R/A; Weight 65.77 kg; Height mb9 5 ft. 5 in. ; 20:10 Body Mass Index 24.13 (65.77 kg, 165.1 cm) mb9 MDM: 20:16 Patient medically screened. sp4 23:33 Differential diagnosis: cardiac arrhythmia, generalized weakness, hyperventilation, sp4 vertigo. Data reviewed: vital signs, nurses notes, EMS record, old medical records, EKG. ED course: Patient was here on 06/17/2023 and had a full cardiac workup. At this time patient reports symptoms have completely resolved spontaneously. At this time repeat cardiac workup is not necessary. Patient stable for discharge home. . 06/18 20:16 Order name: EKG; Complete Time: 20:17 sp4 06/18 20:16 Order name: EKG - Nurse/Tech; Complete Time: 20:26 sp4 EC:33 Rate is 81 beats/min. Rhythm is regular, Sinus Rhythm with Occasional PVCs. QRS [place] is sp4 Normal. DC interval is normal. QRS interval is normal. QT interval is normal. No ST changes noted. Clinical impression: No evidence of ischemia. Interpreted by me. Reviewed by me. Administered Medications: No medications were administered Disposition: 23:44 Chart complete. sp4 Disposition Summary: 06/19/23 21:17 Discharge Ordered Notes: Location: Home sp4 Problem: new sp4 Symptoms: have improved sp4 Condition: Stable sp4 Diagnosis - Dizziness and giddiness sp4 Followup: sp4 - With: Private Physician - When: 7 - 10 days - Reason: Recheck today's complaints Discharge Instructions: - Discharge Summary Sheet sp4 - Dizziness sp4 Signatures: Clair Jorge RN RN mb9 Uriel Cannon MD MD sp4
--- NOTE | 2023-06-19 21:18 | ER ---
Nurse's Notes [facility] Name: Geetha Khan Age: 48 yrs Sex: Female : 1975 Arrival Date: 06/19/2023 Time: 20:06 Bed DX3 Private MD: Diagnosis: Dizziness and giddiness Presentation: 06/18 20:10 Chief complaint: EMS states: "toned out for vital sign check and dizziness that started mb9 a few hours ago.". Coronavirus screen: Vaccine status: Patient reports receiving the 2nd dose of the covid vaccine. Ebola Screen: No symptoms or risks identified at this time. Initial Sepsis Screen: Does the patient meet any 2 criteria? No. Patient's initial sepsis screen is negative. Does the patient have a suspected source of infection? No. Patient's initial sepsis screen is negative. Risk Assessment: Do you want to hurt yourself or someone else? Patient reports no desire to harm self or others. Onset of symptoms was June 19, 2023. 20:10 Method Of Arrival: EMS: [facility] mb9 20:10 Acuity: CORRINA 3 mb9 Triage Assessment: 20:13 General: Appears in no apparent distress. Behavior is calm, cooperative. Neuro: mb9 [place]ullen Agitation-Sedation Scale (RASS): 0 - Alert and Calm Level of Consciousness is awake, alert, obeys commands, Oriented to person, place, time, situation, Appropriate for age Reports dizziness. Cardiovascular: Patient's skin is warm and dry. Derm: Skin is pink, warm \\T\\ dry. Musculoskeletal: Range of motion: intact in all extremities. Historical: - Allergies: 20:12 Aspirin; mb9 20:12 CRANBERRY; mb9 20:12 FISH PRODUCT DERIVATIVES; mb9 20:12 GRAPEFRUIT; mb9 20:12 mushrooms; mb9 - Home Meds: 20:12 metoprolol succinate oral [Active]; lisinopril Oral [Active]; mb9 - PMHx: 20:12 Asthma; Cerebrovascular accident; COPD; Hypertension; Left arm paralysis and left leg mb9 weakness from previous CVA (Thyroid problem); Seizures; Myocardial infarction; Thyroid problem; - Immunization history:: Adult Immunizations up to date. - Infectious Disease History:: Denies. - Social history:: Smoking status: Patient reports the use of cigarette tobacco products. - Family history:: not pertinent. Screenin:15 [facility] ED Fall Risk Assessment (Adult) History of falling in the last 3 months, cm10 including since admission Yes- single mechanical fall (1 pt) Confusion or Disorientation No (0 pts) Intoxicated or Sedated No (0 pts) Impaired Gait Yes (1 pt) Mobility Assist Device Used Yes (1 pt) Altered Elimination Yes (1 pt) Score/Fall Risk Level 3 or more points = High Risk Oriented to surroundings, Maintained a safe environment, Provided non-skid footwear, Hourly rounding (assess needs \\T\\ fall precautionary measures) done. Abuse screen: Denies threats or abuse. Denies injuries from another. Nutritional screening: No deficits noted. Tuberculosis screening: No symptoms or risk factors identified. Assessment: 21:51 Reassessment: PT refused to have brief changed. Pt states that she can wait until she cm10 gets home to have it changed. Pain:. Vital Signs: 20:10 BP 116 / 78; Pulse 76; Resp 16; Temp 98.1; Pulse Ox 98% on R/A; Weight 65.77 kg; Height mb9 5 ft. 5 in. ; 20:10 Body Mass Index 24.13 (65.77 kg, 165.1 cm) mb9 ED Course: 20:08 Patient arrived in ED. im 20:10 Arm band placed on. mb9 20:11 Triage completed. mb9 20:13 Uriel Cannon MD is Attending Physician. sp4 20:15 Patient has correct armband on for positive identification. Provided Education on: ER cm10 process and procedures.. 20:15 No provider procedures requiring assistance completed. Patient did not have IV access cm10 during this emergency room visit. 20:26 EKG done, by ED staff, reviewed by Uriel Cannon MD. cm10 Administered Medications: No medications were administered Medication: 20:15 VIS not applicable for this client. cm10 Outcome: 21:17 Discharge ordered by . sp4 21:52 Discharged to home via wheelchair, Pt wheeled outside per request to wait for ride. cm10 21:52 Condition: good 21:52 Discharge instructions given to patient, Instructed on discharge instructions, follow up and referral plans. Demonstrated understanding of instructions, follow-up care, 21:52 Patient left the ED. cm10 Signatures: Clair Jorge RN RN mb9 Uriel Cannon MD MD sp4 Verna Jhaveri Clarissa, RN RN cm10 Corrections: (The following items were deleted from the chart) 20:13 20:10 Chief complaint: EMS states: "pt states she is dizzy and having chest pain" mb9 mb9
[2023-06-19 22:14] VITALS: BP 116/78; TEMP 98.1; O2SAT 98
== END 2023-06-19 21:52 | disposition home or self-care (01) ==
LOC: ER 20:06
DX: R42 Dizziness and giddiness (principal); I10 Essential (primary) hypertension; Z88.6 Allergy status to analgesic agent; Z91.013 Allergy to seafood; Z91.018 Allergy to other foods; Z72.0 Tobacco use
CPT/HCPCS: 93005

== ENCOUNTER 2023-06-28 20:46 | Emergency (ER) | payer OTHER ==
[2023-06-28 21:24] LABS: Absolute Eosinophils 0.3 K/uL (0-0.5); Absolute Lymphocytes (CBC) 1.1 K/uL (0.7-4.9); Absolute Monocytes 0.3 K/uL (0.1-1.3); Absolute Neutrophil 2.3 K/uL (1.8-8.0); Basophils % 0.9 % (0-1.3); Eosinophils % 8.2 % (0-4.4); Hematocrit 28.5 % (36.0-45.0); MCH 32.8 pg (27.0-35.0); MCHC 34.9 g/dL (32.0-36.0); MCV 93.9 fL (80-100); MPV 6.4 fL (7.6-11.3); Monocytes % 6.6 % (3.3-12.3); Neutrophils % 56.3 % (41.7-73.7); Nucleated Red Blood Cells % 0.1 % (0-0); Platelets 191 thou/uL (152-406); RBC Red Blood Cell Count 3.04 M/uL (3.86-4.86); Red Cell Distribution Width 13.5 % (12.1-15.2)
[2023-06-28 21:34] LABS: Anion Gap 10.9 mEq/L (5.0-15.0); Potassium 4.9 mEq/L (3.5-5.1); Troponin High Sensitivity 29.3 pg/mL (<58.9)
[2023-06-28] MEDS ORDERED: MORPHINE 4 MG/ML SYR ONE (21:37)
[2023-06-28] MEDS ORDERED: ALBUTEROL 2.5 MG/3 ML NEB SOL ONE (21:46)
[2023-06-28] MEDS ORDERED: IPRATROPIUM BROM 0.5MG/2.5ML ONE (21:47)
--- NOTE | 2023-06-28 22:57 | RAD REPORT ---
EXAM DESCRIPTION: Wait Single View06/28/2023 9:46 pm CLINICAL HISTORY: CHEST PAIN COMPARISON: Chest Single View dated 06/17/2023; Chest Single View dated 06/15/2023; Chest Single View d ated 06/10/2023; Chest Single View dated 06/08/2023hest Single View dated 06/17/2023; Chest Single View dated 06/15/2023; Chest Single View dated 06/10/2023; Chest Single View dated 06/08/2023 TECHNIQUE: Portable AP view of the chest. FINDINGS: The lungs are clear. No pneumothorax or effusion. The cardiomediastinal contours are unre markable. IMPRESSION: No acute cardiopulmonary process.
--- NOTE | 2023-06-28 23:30 | EDPHYS ---
Physician Documentation [facility] Name: Geetha Khan Age: 48 yrs Sex: Female : 1975 Arrival Date: 06/28/2023 Time: 20:46 Bed 4 Private MD: ED Physician Russell Rodriguez HPI: 06/27 20:54 This 48 yrs old Female presents to ER via EMS with complaints of Dizziness. ec2 20:54 Patient arrives today for evaluation of chest pain. Patient reports significant history ec2 of subsequent chest pain, no alleviating or exacerbating factors. Patient reports no significant difficulty breathing. History of asthma, COPD, hypertension.. 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 - Infectious Disease History:: Denies. - Social history:: Smoking status: Patient reports the use of cigarette tobacco products, smokes one pack cigarettes per day. ROS: 20:54 Constitutional: as per hpi ec2 Exam: 20:54 Constitutional: GEN: NAD Head: atraumatic Eyes: EOMI Ears: External ears are ec2 normal. CV: regular rate LUNGS: no respiratory distress ABD: non-distended SKIN: no evidence of rashes MSK: no evidence of trauma NEURO: moves all extremities equally Vital Signs: 20:51 BP 113 / 90; Pulse 68; Resp 17; Temp 98; Pulse Ox 96% on R/A; Weight 60 kg; rv 21:47 BP 150 / 101; Pulse 77; Resp 18; Pulse Ox 100% on R/A; Pain 7/10; tm6 22:43 BP 132 / 85; Pulse 69; Resp 17; Pulse Ox 98% on R/A; tm6 23:53 BP 125 / 81; Pulse 68; Resp 16; Temp 98; Pulse Ox 99% on R/A; rv 21:47 Pain Scale: Adult tm6 MDM: 20:54 Patient medically screened. ec2 20:54 Data reviewed: vital signs. ED course: Patient arrives Today for evaluation of chest ec2 pain. examination remarkable for well appearing nontoxic dividual is otherwise in no acute distress but will obtain labs, EKG, chest x-ray. Evaluate for ACS, electrolyte disturbances, arrhythmia. . 21:53 ED course: Metabolic profile with renal dysfunction, CBC reassuring with slight anemia ec2 noted. Slight BNP elevation at 1000. Troponin within normal ranges. . 22:00 ED course: Chest x-ray independently reviewed and interpreted by me, shows no acute ec2 intrathoracic process. Cardiomegaly noted.. 22:18 ED course: EKG independently reviewed and interpreted by me, shows normal sinus rhythm, ec2 rate 69, significant motion artifact noted, no acute ST segment elevations, nonspecific T wave abnormalities noted in the lateral leads. Will obtain repeat EKG and troponin at 2-hour gaye. . 23:00 ED course: Chest x-ray shows no acute intrathoracic process.. ec2 23:13 ED course: Repeat EKG independently reviewed and interpreted by me, shows normal sinus ec2 rhythm, rate of 67, no acute ST segment elevations, no significant changes when compared to initial. I did compared to external record EKG, EKG is grossly unchanged. Both EKGs do read as acute ME however there is no ST elevations that are consistent with STEMI diagnosis.. 23:28 ED course: Repeat troponin is unchanged. Will discharge home. Return precautions given. ec2 Instructed on tobacco cessation.. 0412 20:54 Order name: Basic Metabolic Panel; Complete Time: 21:53 ec2 06/27 20:54 Order name: CBC with Diff; Complete Time: 21:53 ec2 06/27 20:54 Order name: NT PRO-BNP; Complete Time: 21:53 ec2 06/27 20:54 Order name: Troponin HS; Complete Time: 21:53 ec2 06/27 22:50 Order name: Troponin High Sensitivity; Complete Time: 23:28 ec2 06/27 20:54 Order name: XRAY Chest (1 view); Complete Time: 23:00 ec2 06/27 20:54 Order name: Cardiac monitoring; Complete Time: 20:54 ec2 06/27 20:54 Order name: EKG - Nurse/Tech; Complete Time: 20:54 ec2 06/27 20:54 Order name: IV Saline Lock; Complete Time: 20:54 ec2 06/27 20:54 Order name: Labs collected and sent; Complete Time: 20:54 ec2 06/27 20:54 Order name: O2 Per Protocol; Complete Time: 20:55 ec2 06/27 20:54 Order name: O2 Sat Monitoring; Complete Time: 20:55 ec2 06/27 22:50 Order name: EKG - Nurse/Tech; Complete Time: 23:12 ec2 06/27 22:50 Order name: Misc. Order: repeat ekg/trop; Complete Time: 23:12 ec2 Administered Medications: 21:43 Drug: morphine IVP or IV 4 mg IVP once over 4 mins Route: IVP; Infused Over: 4 mins; tm6 Site: right antecubital; 23:53 Follow up: Response: No adverse reaction; Marked relief of symptoms rv 21:52 Drug: DuoNeb Nebulize (3:1) (2.5 mg - 0.5 mg) 3 ml Nebulizer once Route: Nebulizer; rv 23:53 Follow up: Response: No adverse reaction; Wheezing diminished rv 23:53 Drug: Ketorolac IVP 15 mg IVP once Route: IVP; Site: right antecubital; rv 23:53 Follow up: Response: Medication administered at discharge. rv Disposition Summary: 06/28/23 23:30 Discharge Ordered Notes: Location: Home ec2 Condition: Stable ec2 Diagnosis - Chest pain, unspecified ec2 Followup: ec2 - With: Private Physician - When: - Reason: Re-evaluation by your physician Discharge Instructions: - Discharge Summary Sheet ec2 - Nonspecific Chest Pain, Adult, [id number] ec2 Forms: - Medication Reconciliation Form ec2 - Thank You Letter ec2 - Antibiotic Education ec2 - Prescription Opioid Use ec2 - Patient Portal Instructions ec2 - Leadership Thank You Letter ec2 Signatures: Dispatcher [employer] Cale Levi RN RN rv Russell Rodriguez MD MD 2 Greg Allen RN RN tm6
--- NOTE | 2023-06-28 23:30 | ER ---
Nurse's Notes [facility] Name: Geetha Khan Age: 48 yrs Sex: Female : 1975 Arrival Date: 06/28/2023 Time: 20:46 Bed 4 Private MD: Diagnosis: Chest pain, unspecified Presentation: 06/27 20:51 Chief complaint: EMS states: sudden onset of dizziness and lightheadedness, denies rv other symptoms. Coronavirus screen: At this time, the client does not indicate any symptoms associated with coronavirus-19. Ebola Screen: No symptoms or risks identified at this time. Initial Sepsis Screen: Does the patient meet any 2 criteria? No. Patient's initial sepsis screen is negative. Does the patient have a suspected source of infection? No. Patient's initial sepsis screen is negative. Risk Assessment: Do you want to hurt yourself or someone else? Patient reports no desire to harm self or others. Onset of symptoms was June 28, 2023. 20:51 Method Of Arrival: EMS: [facility] rv 20:51 Acuity: CORRINA 3 rv Triage Assessment: 20:52 General: Appears comfortable, Behavior is calm, cooperative. Pain: Denies pain. Neuro: rv Level of Consciousness is awake, alert, obeys commands, Oriented to person, place, time, situation, Reports dizziness, since today. Cardiovascular: Capillary refill < 3 seconds Patient's skin is warm and dry. Respiratory: Airway is patent Respiratory effort is even, unlabored. GI: No signs and/or symptoms were reported involving the gastrointestinal system. : No signs and/or symptoms were reported regarding the genitourinary system. Derm: Skin is intact. Musculoskeletal: left sided weakness from stroke. 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 - Infectious Disease History:: Denies. - Social history:: Smoking status: Patient reports the use of cigarette tobacco products, smokes one pack cigarettes per day. Screenin:54 [facility] ED Fall Risk Assessment (Adult) History of falling in the last 3 months, rv including since admission No falls in past 3 months (0 pts) Score/Fall Risk Level 0 - 2 = Low Risk Oriented to surroundings, Maintained a safe environment, Educated pt \T\ family on fall prevention, incl call for assistance when getting out of bed, Assessed \T\ reinforced patient's understanding of fall precautions. Abuse screen: Denies threats or abuse. Denies injuries from another. Nutritional screening: No deficits noted. Tuberculosis screening: No symptoms or risk factors identified. Assessment: 21:48 General: Appears uncomfortable, Behavior is calm, cooperative. Pain: Complains of pain tm6 in face and chest Pain currently is 7 out of 10 on a pain scale. Quality of pain is described as aching. Neuro: Level of Consciousness is awake, alert, obeys commands, Oriented to person, place, time, situation. Neuro: Reports dizziness. Cardiovascular: Reports chest pain. Respiratory: Airway is patent Respiratory effort is even, unlabored, Respiratory pattern is regular, symmetrical, Breath sounds with wheezes bilaterally. GI: No signs and/or symptoms were reported involving the gastrointestinal system. Abdomen is flat, non-distended. : No signs and/or symptoms were reported regarding the genitourinary system. EENT: No signs and/or symptoms were reported regarding the EENT system. Derm: No signs and/or symptoms reported regarding the dermatologic system. Musculoskeletal: No signs and/or symptoms reported regarding the musculoskeletal system. 22:43 Reassessment: Patient and/or family updated on plan of care and expected duration. Pain tm6 level reassessed. Patient is alert, oriented x 3, equal unlabored respirations, skin warm/dry/pink. chest still hurts, but is no longer dizzy. 23:54 Reassessment: Patient states feeling better. Patient states symptoms have improved. rv Vital Signs: 20:51 BP 113 / 90; Pulse 68; Resp 17; Temp 98; Pulse Ox 96% on R/A; Weight 60 kg; rv 21:47 BP 150 / 101; Pulse 77; Resp 18; Pulse Ox 100% on R/A; Pain 7/10; tm6 22:43 BP 132 / 85; Pulse 69; Resp 17; Pulse Ox 98% on R/A; tm6 23:53 BP 125 / 81; Pulse 68; Resp 16; Temp 98; Pulse Ox 99% on R/A; rv 21:47 Pain Scale: Adult tm6 ED Course: 20:47 Patient arrived in ED. rv1 20:50 Russell Rodriguez MD is Attending Physician. ec2 20:52 Triage completed. rv 20:52 Arm band placed on right wrist. rv 20:54 Cale Fernandes, RN is Primary Nurse. rv 20:54 Patient has correct armband on for positive identification. Client placed on continuous rv cardiac and pulse oximetry monitoring. NIBP monitoring applied. gynaecological oncologist on. 20:54 No provider procedures requiring assistance completed. rv 21:00 Inserted saline lock: 20 gauge in right antecubital area, using aseptic technique. kmf Blood collected. 21:32 Basic Metabolic Panel Sent. rv 21:32 NT PRO-BNP Sent. rv 21:32 Troponin HS Sent. rv 21:47 XRAY Chest (1 view) In Process Unspecified. EDMS 21:48 Provided Education on: plan of care. Pulse ox on. NIBP on. Door closed. Noise tm6 minimized. Lights dimmed. Warm blanket given. 22:18 EKG done, by ED staff, reviewed by Russell Rodriguez MD. tm6 23:13 EKG done, by ED staff, reviewed by Russell Rodriguez MD. tm6 23:54 IV discontinued, intact, bleeding controlled, No redness/swelling at site. Pressure rv dressing applied. Administered Medications: 21:43 Drug: morphine IVP or IV 4 mg IVP once over 4 mins Route: IVP; Infused Over: 4 mins; tm6 Site: right antecubital; 23:53 Follow up: Response: No adverse reaction; Marked relief of symptoms rv 21:52 Drug: DuoNeb Nebulize (3:1) (2.5 mg - 0.5 mg) 3 ml Nebulizer once Route: Nebulizer; rv 23:53 Follow up: Response: No adverse reaction; Wheezing diminished rv 23:53 Drug: Ketorolac IVP 15 mg IVP once Route: IVP; Site: right antecubital; rv 23:53 Follow up: Response: Medication administered at discharge. rv Medication: 20:54 VIS not applicable for this client. rv Outcome: 23:30 Discharge ordered by . ec2 23:54 Discharged to home via wheelchair, with family, rv 23:54 Condition: good 23:54 Discharge instructions given to patient, Instructed on discharge instructions, follow up and referral plans. Demonstrated understanding of instructions, follow-up care, 23:54 Patient left the ED. rv Signatures: Dispatcher [employer] Cale Levi, RN RN rv Autumn Rodriguez rv1 Russell Rodriguez MD MD ec2 [facility] Greg Allen RN RN tm6
[2023-06-28] MEDS ORDERED: KETOROLAC 30 MG/ML INJ ONE (23:43)
[2023-06-29 07:48] VITALS: BP 125/81; TEMP 98; O2SAT 99
== END 2023-06-28 23:54 | disposition home or self-care (01) ==
LOC: ER 20:46
DX: R07.9 Chest pain, unspecified (principal); I10 Essential (primary) hypertension; J44.9 Chronic obstructive pulmonary disease, unspecified; F17.210 Nicotine dependence, cigarettes, uncomplicated; Z88.6 Allergy status to analgesic agent; Z91.013 Allergy to seafood; Z91.018 Allergy to other foods
CPT/HCPCS: 85025; 80048; 36415; 84484 ×2; 83880; 71045; 94640; 96375; 96374; 99285; J7613; J7644; 93005

== ENCOUNTER 2023-06-29 20:47 | Emergency (ER) | payer OTHER ==
[2023-06-29] MEDS ORDERED: ALBUTEROL 2.5 MG/3 ML NEB SOL ONE (21:13)
[2023-06-29] MEDS ORDERED: METHYLPREDNISOLONE 125 MG INJ ONE (21:14)
[2023-06-29] MEDS ORDERED: IPRATROPIUM BROM 0.5MG/2.5ML ONE (21:14)
[2023-06-29 21:23] LABS: Absolute Eosinophils 0.5 K/uL (0-0.5); Absolute Lymphocytes (CBC) 0.9 K/uL (0.7-4.9); Absolute Monocytes 0.3 K/uL (0.1-1.3); Absolute Neutrophil 2.4 K/uL (1.8-8.0); Basophils % 0.7 % (0-1.3); Eosinophils % 12.6 % (0-4.4); Hematocrit 29.9 % (36.0-45.0); Hemoglobin 10.2 g/dL (12.0-15.0); Lymphocytes % 21.5 % (15.3-44.8); MCH 32.3 pg (27.0-35.0); MCHC 34.1 g/dL (32.0-36.0); MCV 94.8 fL (80-100); MPV 6.3 fL (7.6-11.3); Monocytes % 6.2 % (3.3-12.3); Nucleated Red Blood Cells % 0.1 % (0-0); Platelets 174 thou/uL (152-406); RBC Red Blood Cell Count 3.15 M/uL (3.86-4.86); Red Cell Distribution Width 13.6 % (12.1-15.2)
[2023-06-29 21:32] LABS: Protime INR 0.91
[2023-06-29 21:42] LABS: Albumin 3.6 g/dL (3.4-5.0); Albumin/Globulin Ratio 1.1 (1.1-1.8); Anion Gap 9.2 mEq/L (5.0-15.0); Bilirubin Direct 0.1 mg/dL (0-0.2); Bilirubin Indirect, Calculated 0.1 mg/dL (0.2-0.8); Bilirubin Total 0.2 mg/dL (0.2-1.0); Globulin 3.2 g/dL (2.3-3.5); Magnesium 1.6 mg/dL (1.6-2.4); Potassium 5.2 mEq/L (3.5-5.1); Protein, Total 6.8 g/dL (6.4-8.2); Troponin High Sensitivity 28.1 pg/mL (<58.9)
[2023-06-29] MEDS ORDERED: FUROSEMIDE 20 MG/ 2ML VIAL ONE (22:20)
--- NOTE | 2023-06-29 22:23 | RAD REPORT ---
EXAM DESCRIPTION: [place] Single View06/29/2023 9:49 pm CLINICAL HISTORY: Chest pain COMPARISON: June 28, 2023 FINDINGS: 3 millimeter nodule left mid to lower lung unchanged probably benign. Follow-up x-ray 1 ye ar recommended to assess stability. Right lung appears clear. Heart is mildly enlarged
[2023-06-30] MEDS ORDERED: LIDOCAINE VISCOUS 2% 10ML ORAL SOLN ONE (00:13)
[2023-06-30] MEDS ORDERED: MAGNES/ALUMIN/SIMET 30ML UCUP ONE (00:13)
[2023-06-30 00:52] LABS: Potassium 4.7 mEq/L (3.5-5.1); Troponin High Sensitivity 25.6 pg/mL (<58.9)
--- NOTE | 2023-06-30 01:12 | EDPHYS ---
Physician Documentation [facility] Name: Geetha Khan Age: 48 yrs Sex: Female : 1975 Arrival Date: 06/29/2023 Time: 20:47 Bed 8 Private MD: ED Physician Russell Rodriguez HPI: 06/28 21:10 This 48 yrs old Female presents to ER via EMS with complaints of Chest Pain. cp 21:10 The patient or guardian reports chest pain that is located primarily in the anterior cp chest wall. 21:10 Onset: today. cp 21:10 Associated signs and symptoms: Pertinent positives: shortness of breath, right shoulder cp pain, Pertinent negatives: abdominal pain, cough, diaphoresis, dizziness, lower extremity pain, lower extremity swelling, palpitations, vomiting. The chest pain is described as constant. Duration: The patient or guardian reports a single episode, that is still ongoing. Severity of pain: in the emergency department the pain is unchanged despite EMS interventions. 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 - Infectious Disease History:: Denies. - Social history:: Smoking status: Patient reports the use of cigarette tobacco products, smokes one-half pack cigarettes per day. ROS: 21:15 Constitutional: Negative for body aches, chills, fever, poor PO intake, cp 21:15 Eyes: Negative for injury, pain, redness, and discharge, cp 21:15 ENT: Negative for drainage from ear(s), ear pain, sore throat, difficulty swallowing, difficulty handling secretions, 21:15 Neck: Negative for pain with movement, pain at rest, stiffness, 21:15 Cardiovascular: Positive for chest pain, Negative for palpitations, 21:15 Respiratory: Positive for shortness of breath, Negative for cough, wheezing, 21:15 Abdomen/GI: Negative for abdominal pain, vomiting, diarrhea, constipation, 21:15 MS/extremity: Positive for pain, of the right shoulder, Negative for injury or acute deformity, decreased range of motion, paresthesias, 21:15 Neuro: Negative for altered mental status, headache, syncope, 21:15 All other systems are negative, Exam: 21:08 ECG was reviewed by the Attending Physician. cp 21:20 Constitutional: The patient appears in no acute distress, alert, awake, cp non-diaphoretic, non-toxic, well developed, well nourished, 21:20 Head/Face: Normocephalic, atraumatic. cp 21:20 Eyes: Periorbital structures: appear normal, Conjunctiva: normal, no exudate, no injection, Sclera: no appreciated abnormality, Lids and lashes: appear normal, bilaterally, 21:20 ENT: External ear(s): are unremarkable, Nose: is normal, Mouth: Lips: moist, Oral mucosa: moist, Posterior pharynx: Airway: no evidence of obstruction, patent, 21:20 Neck: ROM/movement: is normal, is supple, without pain, no range of motions limitations, 21:20 Chest/axilla: Inspection: normal, 21:20 Cardiovascular: Rate: normal, Rhythm: regular, Edema: ankle edema, that is mild, JVD: is not appreciated, 21:20 Respiratory: the patient does not display signs of respiratory distress, Respirations: labored breathing, is not present, shallow respirations, that is mild, Breath sounds: decreased breath sounds, that are mild, throughout, stridor, is not appreciated, wheezing: that is mild, is heard diffusely, 21:20 Abdomen/GI: Inspection: abdomen appears normal, Palpation: abdomen is soft and non-tender, in all quadrants, 21:20 Back: pain, is absent, ROM is normal, 21:20 Neuro: Orientation: to person, place \T\ time. Mentation: is normal, Motor: no acute changes, Sensation: no acute changes, Vital Signs: 20:50 BP 123 / 99; Pulse 66; Resp 20; Temp 98.9; Pulse Ox 100% on R/A; Weight 61.23 kg (M); jb4 Height 5 ft. 3 in. ; Pain 10/10; 22:14 BP 114 / 77; Pulse 64; Resp 16; Pulse Ox 97% on R/A; jb4 23:50 BP 133 / 82; Pulse 66; Resp 19; Pulse Ox 95% ; [facility] 06/29 01:30 BP 134 / 91; Pulse 74; Resp 16; Pulse Ox 100% on R/A; [facility] 06/28 20:50 Body Mass Index 23.91 (61.23 kg, 160.02 cm) [facility] 06/28 20:50 Pain Scale: Adult [facility] MDM: 06/28 20:55 Patient medically screened. 22:00 Differential diagnosis: acute myocardial infarction, costochondritis, pancreatitis, cp pericarditis, pleurisy, pneumonia, pneumothorax, pulmonary embolus, stable angina, unstable angina, choledocholithiasis. 06/29 01:11 The patient was not given aspirin in the Emergency Department. Not indicated due to cp patient's past medical history. Data reviewed: vital signs, nurses notes, lab test result(s), EKG, radiologic studies, CT scan, plain films, and as a result, I will discharge patient. 01:11 Consideration of Admission/Observation Escalation of care including cp admission/observation considered. I considered the following discharge prescriptions or medication management in the emergency department Medications were administered in the Emergency Department. See MAR. Independent interpretation of the following test(s) in the Emergency Department EKG: See my EKG interpretation above. Care significantly affected by the following chronic conditions: Hypertension, Chronic Obstructive Pulmonary Disease, cva with left side weakness. Response to treatment: the patient's symptoms have markedly improved after treatment, and as a result, I will discharge patient. Special discussion: Based on the patient's history, exam, and Dx evaluation, there is no indication for emergent intervention or inpatient Tx. It is understood by the patient/guardian that if the Sx's persist or worsen they need to return immediately for re-evaluation. 01:12 ED course: initial and repeat troponin negative, EKG similar to previous. Will cp discharge to home for continued monitoring. 06/28 21:04 Order name: Basic Metabolic Panel; Complete Time: 22:10 06/28 22:10 Interpretation: Normal except: NA 133; K 5.2; BUN 21; CRE 1.51; GFR 43; CA 8.4. 06/28 21:04 Order name: CBC with Diff; Complete Time: 22:10 06/28 22:12 Interpretation: Normal except: WBC 4.10; RBC 3.15; HGB 10.2; HCT 29.9; MPV 6.3; cp EOSINOPHIL % 12.6. 06/28 21:04 Order name: LFT's; Complete Time: 22:10 cp 06/29 01:03 Interpretation: Normal except: AST 221; ALT 200; ALK 339; IBILI, CALC 0.1. cp 06/28 21:04 Order name: Magnesium; Complete Time: 22:10 cp 06/28 21:04 Order name: NT PRO-BNP; Complete Time: 22:10 cp 06/28 21:04 Order name: PT-INR; Complete Time: 22:10 cp 06/28 21:04 Order name: Troponin HS; Complete Time: 22:10 cp 06/29 00:14 Order name: Troponin HS: 3 hr repeat; Complete Time: 01:00 cp 06/29 00:15 Order name: Potassium; Complete Time: 01:00 cp 06/28 21:04 Order name: XRAY Chest (1 view); Complete Time: 00:04 cp 06/28 22:20 Order name: CT Chest Abdomen Pelvis W/O Contrast cp 06/28 21:04 Order name: Cardiac monitoring; Complete Time: 21:11 cp 06/28 21:04 Order name: EKG - Nurse/Tech; Complete Time: 21:11 cp 06/28 21:04 Order name: IV Saline Lock; Complete Time: 21:11 cp 06/28 21:04 Order name: Labs collected and sent; Complete Time: 21:11 cp 06/28 21:04 Order name: O2 Per Protocol; Complete Time: 21:11 cp 06/28 21:04 Order name: O2 Sat Monitoring; Complete Time: 21:11 cp EC/13 21:08 Rate is 66 beats/min. Rhythm is regular. NJ interval is prolonged at 210 msec. QRS cp interval is prolonged at 102 msec. QT interval is normal. T waves are Inverted in leads I, II, aVL, V5, V6. Clinical impression: Abnormal EKG without significant change. Interpreted by me. Reviewed by me. Administered Medications: 21:21 Drug: DuoNeb Nebulize (2.5 mg - 0.5 mg) 3 ml Nebulizer once Route: Nebulizer; jb4 21:49 Follow up: Response: No adverse reaction; Marked relief of symptoms; Wheezing diminishedjb4 21:21 Drug: MethylPrednisoLONE IVP 125 mg IVP once Route: IVP; Site: right antecubital; jb4 21:49 Follow up: Response: No adverse reaction; Marked relief of symptoms jb4 22:25 Drug: Furosemide IVP 10 mg IVP once; give over 2 minutes Route: IVP; Site: right jb4 antecubital; 06/29 00:58 Follow up: Response: No adverse reaction jb4 00:25 Drug: GI Cocktail without - (Maalox PO 30 ml, Lidocaine Mucous Membrane 2 % 15 jb4 ml) PO once {Note: Given with 10ml per ER provider..} Route: PO; 00:58 Follow up: Response: No adverse reaction; Marked relief of symptoms jb4 01:28 Drug: Rocephin IV 1 grams IV at calculated rate once; Given slow IV push per pharmacy jb4 instructions Route: IV; Rate: calculated rate; Site: right antecubital; 01:28 Drug: AZITHromycin PO 500 mg PO once Route: PO; jb4 01:33 Drug: Ketorolac IVP 15 mg IVP once Route: IVP; Site: right antecubital; jb4 Disposition Summary: 06/30/23 01:12 Discharge Ordered Notes: Location: Home cp Problem: an ongoing problem cp Symptoms: have improved cp Condition: Stable cp Diagnosis - Chest pain, unspecified cp - Abnormal results of liver function studies cp - Pneumonia, unspecified organism cp - Multiple fractures of ribs cp Followup: cp - With: Private Physician - When: 1 - 2 days - Reason: Recheck today's complaints Discharge Instructions: - Discharge Summary Sheet cp - Nonspecific Chest Pain, Adult cp - Community-Acquired Pneumonia, Adult cp - Rib Fracture cp Forms: - Medication Reconciliation Form cp - Thank You Letter cp - Antibiotic Education cp - Prescription Opioid Use cp - Patient Portal Instructions cp - Leadership Thank You Letter cp Prescriptions: - Zithromax Z-Zack 250 mg Oral Tablet - take 1 tablet ORAL route as directed for 5 days Day 1 - take two (2) tablets cp one time. Day 2, 3, 4 , 5 take one (1) tablet once daily.; 6 tablet; Refills: 0, Product Selection Permitted Addendum: 07/01/2023 09:41 I was immediately available for consultation during this patient's visit. I did not e c2 personally see the patient or discuss the patient with the SEGUN. . Signatures: Dispatcher [employer] EDWI Michael Nguyen PA PA cp Jaziel Storm, RN RN jb4 Russell Rodriguez MD MD ec2 Corrections: (The following items were deleted from the chart) 06/28 21:05 21:05 Chest Single View+RAD.RAD.BRZ ordered. EDWI EDMS 22:16 22:16 Abdomen Limited+US.RAD.BRZ ordered. EDWI EDWI 06/30 00:29 06/29 21:15 Constitutional: Negative for body aches, chills, fever, poor PO intake, cp cp 06/30 00:29 06/29 21:15 Eyes: Negative for injury, pain, redness, and discharge, cp cp 06/30 01:16 06/28 21:10 The patient or guardian reports chest pain that is located primarily in the cp anterior chest wall, right, cp 06/30 00:23 01:20 The patient was not given aspirin in the Emergency Department. Not indicated due cp to patient's past medical history. cp 01:20 Data reviewed: vital signs, nurses notes, lab test result(s), EKG, radiologic cp studies, CT scan, plain films, and as a result, I will discharge patient, cp
--- NOTE | 2023-06-30 01:12 | ER ---
Nurse's Notes [facility] Name: Geetha Khan Age: 48 yrs Sex: Female : 1975 Arrival Date: 06/29/2023 Time: 20:47 Bed 8 Private MD: Diagnosis: Chest pain, unspecified;Abnormal results of liver function studies;Pneumonia, unspecified organism;Multiple fractures of ribs Presentation: 06/28 20:50 Chief complaint: EMS states: Pt reports chest pain, R shoulder pain, and SOB. jb4 Coronavirus screen: At this time, the client does not indicate any symptoms associated with coronavirus-19. Ebola Screen: No symptoms or risks identified at this time. Initial Sepsis Screen: Does the patient meet any 2 criteria? No. Patient's initial sepsis screen is negative. Does the patient have a suspected source of infection? No. Patient's initial sepsis screen is negative. Risk Assessment: Do you want to hurt yourself or someone else? Patient reports no desire to harm self or others. Onset of symptoms was June 29, 2023. Transition of care: patient was not received from another setting of care. 20:50 Method Of Arrival: EMS: [facility] jb4 20:50 Acuity: CORRINA 3 jb4 Triage Assessment: 20:52 General: Appears in no apparent distress. comfortable, Behavior is calm, cooperative, jb4 appropriate for age. Pain: Complains of pain in chest and anterior aspect of right shoulder Pain does not radiate. Pain currently is 10 out of 10 on a pain scale. EENT: No signs and/or symptoms were reported regarding the EENT system. Neuro: Level of Consciousness is awake, alert, obeys commands, Oriented to person, place, time, situation. Cardiovascular: Patient's skin is warm and dry. Derm: Skin is intact, Skin is pink, warm \T\ dry. Musculoskeletal: Circulation, motion, and sensation intact. Range of motion: intact in all extremities. 20:52 Respiratory: Airway is patent Respiratory effort is even, unlabored, Respiratory jb4 pattern is regular, symmetrical, Audible wheezing noted. 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 - Infectious Disease History:: Denies. - Social history:: Smoking status: Patient reports the use of cigarette tobacco products, smokes one-half pack cigarettes per day. Screenin:14 [facility] ED Fall Risk Assessment (Adult) History of falling in the last 3 months, jb4 including since admission No falls in past 3 months (0 pts) Confusion or Disorientation No (0 pts) Intoxicated or Sedated No (0 pts) Impaired Gait No (0 pts) Mobility Assist Device Used No (0 pt) Altered Elimination No (0 pt) Score/Fall Risk Level 0 - 2 = Low Risk Oriented to surroundings, Maintained a safe environment. Abuse screen: Denies threats or abuse. Nutritional screening: No deficits noted. Tuberculosis screening: No symptoms or risk factors identified. Assessment: 21:30 Reassessment: Patient appears in no apparent distress at this time. Patient and/or jb4 family updated on plan of care and expected duration. Pain level reassessed. Patient is alert, oriented x 3, equal unlabored respirations, skin warm/dry/pink. Respiratory: Breath sounds are clear bilaterally. 22:14 Reassessment: Patient appears in no apparent distress at this time. Patient and/or jb4 family updated on plan of care and expected duration. Pain level reassessed. Patient is alert, oriented x 3, equal unlabored respirations, skin warm/dry/pink. 23:50 Reassessment: Patient appears in no apparent distress at this time. Patient and/or jb4 family updated on plan of care and expected duration. Pain level reassessed. Patient is alert, oriented x 3, equal unlabored respirations, skin warm/dry/pink. 06/29 00:10 Reassessment: Pt reports chest pain has returned, provider notified, see MAY. jb 00:57 Reassessment: Patient appears in no apparent distress at this time. Patient and/or jb4 family updated on plan of care and expected duration. Pain level reassessed. Patient is alert, oriented x 3, equal unlabored respirations, skin warm/dry/pink. Pt reports having chest pain again, provider notified, no new orders. Vital Signs: 06/28 20:50 BP 123 / 99; Pulse 66; Resp 20; Temp 98.9; Pulse Ox 100% on R/A; Weight 61.23 kg (M); jb4 Height 5 ft. 3 in. ; Pain 10/10; 22:14 BP 114 / 77; Pulse 64; Resp 16; Pulse Ox 97% on R/A; jb4 23:50 BP 133 / 82; Pulse 66; Resp 19; Pulse Ox 95% ; jb4 06/29 01:30 BP 134 / 91; Pulse 74; Resp 16; Pulse Ox 100% on R/A; jb4 06/28 20:50 Body Mass Index 23.91 (61.23 kg, 160.02 cm) jb4 06/28 20:50 Pain Scale: Adult 4 ED Course: 06/28 20:50 Patient arrived in ED. jb4 20:52 Triage completed. jb4 20:52 Arm band placed on right wrist. jb4 20:55 Michael Nguyen PA is PHCP. cp 20:55 Russell Rodriguez MD is Attending Physician. cp 21:10 Initial lab(s) drawn, by [facility], sent to lab. Inserted saline lock: 18 gauge in right jb4 antecubital area, using aseptic technique. Blood collected. 21:11 Troponin HS Sent. jb4 21:11 PT-INR Sent. jb4 21:11 NT PRO-BNP Sent. jb4 21:11 Magnesium Sent. jb4 21:12 LFT's Sent. jb4 21:12 CBC with Diff Sent. jb4 21:12 Basic Metabolic Panel Sent. jb4 21:15 Door closed. Noise minimized. Warm blanket given. jb4 21:29 Jaziel Storm, RN is Primary Nurse. jb4 21:51 XRAY Chest (1 view) In Process Unspecified. EDMS 22:14 Patient has correct armband on for positive identification. Bed in low position. Call [facility] light in reach. Side rails up X 1. Provided Education on: discharge instructions.. 22:32 Cleaned of incontinence. jb4 23:04 CT Chest Abdomen Pelvis W/O Contrast In Process Unspecified. EDMS 06/29 01:35 No provider procedures requiring assistance completed. IV discontinued, intact, jb4 bleeding controlled, No redness/swelling at site. Pressure dressing applied. Administered Medications: 06/28 21:21 Drug: DuoNeb Nebulize (2.5 mg - 0.5 mg) 3 ml Nebulizer once Route: Nebulizer; jb4 21:49 Follow up: Response: No adverse reaction; Marked relief of symptoms; Wheezing diminishedjb4 21:21 Drug: MethylPrednisoLONE IVP 125 mg IVP once Route: IVP; Site: right antecubital; jb4 21:49 Follow up: Response: No adverse reaction; Marked relief of symptoms jb4 22:25 Drug: Furosemide IVP 10 mg IVP once; give over 2 minutes Route: IVP; Site: right jb4 antecubital; 06/29 00:58 Follow up: Response: No adverse reaction jb4 00:25 Drug: GI Cocktail without - (Maalox PO 30 ml, Lidocaine Mucous Membrane 2 % 15 jb4 ml) PO once {Note: Given with 10ml per ER provider..} Route: PO; 00:58 Follow up: Response: No adverse reaction; Marked relief of symptoms jb4 01:28 Drug: Rocephin IV 1 grams IV at calculated rate once; Given slow IV push per pharmacy jb4 instructions Route: IV; Rate: calculated rate; Site: right antecubital; 01:28 Drug: AZITHromycin PO 500 mg PO once Route: PO; jb4 01:33 Drug: Ketorolac IVP 15 mg IVP once Route: IVP; Site: right antecubital; jb4 Medication: 06/28 22:14 VIS not applicable for this client. jb4 Outcome: 06/29 01:12 Discharge ordered by MD. spaulding 01:35 Discharged to home ambulatory, via wheelchair, with family, jb4 01:35 Condition: stable 01:35 Discharge instructions given to patient, Instructed on discharge instructions, follow up and referral plans. medication usage, Demonstrated understanding of instructions, follow-up care, medications, Prescriptions given X 1, 01:37 Patient left the ED. jb4 Signatures: Dispatcher [employer] EDMS Michael Nguyen PA PA cp Bryson, James, RN RN jb4 Corrections: (The following items were deleted from the chart) 06/28 21:29 20:52 Neuro: Level of Consciousness is awake, alert, obeys commands, Oriented to jb4 person, place, time, situation, jb4 20:52 Respiratory: Airway is patent Respiratory effort is even, unlabored, Respiratory jb4 pattern is regular, symmetrical, jb4 : 22:14 No provider procedures requiring assistance completed. jb4 jb4 22:14 IV discontinued, intact, bleeding controlled, No redness/swelling at site. jb4 Pressure dressing applied, jb4 22:14 Condition: stable jb4 jb4 22:14 Discharge instructions given to patient, Instructed on discharge instructions, jb4 follow up and referral plans. medication usage, Demonstrated understanding of instructions, follow-up care, medications, Prescriptions given X 2, jb4 22:14 Discharged to home ambulatory, with family, jb4 jb4 06/29 01:49 01:40 No provider procedures requiring assistance completed. jb4 jb4 01:49 01:40 IV discontinued, intact, bleeding controlled, No redness/swelling at site. jb4 Pressure dressing applied, jb4
[2023-06-30] MEDS ORDERED: AZITHROMYCIN 250 MG TAB ONE (01:20)
[2023-06-30] MEDS ORDERED: CEFTRIAXONE 1000 MG/VIAL ONE (01:20)
[2023-06-30] MEDS ORDERED: KETOROLAC 30 MG/ML INJ ONE (01:31)
[2023-06-30 10:30] VITALS: TEMP 98.9
[2023-06-30 11:02] VITALS: BP 133/82; O2SAT 95
--- NOTE | 2023-07-02 22:15 | RAD REPORT ---
EXAM DESCRIPTION: CT - Chest Abd Pelvis Wo Con - 06/30/2023 7:12 am CLINICAL HISTORY: The patient is 48 years old and is Female; elevated liver enzymes;Chest pain Bed Name: 8 TECHNIQUE: Axial computed tomography images of the chest, abdomen and pelvis without intravenous con trast. Sagittal and coronal reformatted images were created and reviewed. This CT exam was perfor med using one or more of the following dose reduction techniques: automated exposure control, adjus tment of the mA and/or kV according to patient size, and/or use of iterative reconstruction technique . COMPARISON: 01/18/2023 CTA chest, 03/09/2023 CT abdomen pelvis without contrast FINDINGS: CHEST: LUNGS: Mild focal tree-in-bud opacities in the dependent right lower lobe, suggesting endobronchial infection. PLEURAL SPACE: Unremarkable No significant effusion. No pneumothorax. HEART: Heart size upper limits of normal with borderline left ventricular enlargement. Slightly decreased intraventricular attenuation versus the myocardial parenchyma is suggestiv e of anemia. ABDOMEN: LIVER: Borderline hepatomegaly. GALLBLADDER AND BILE DUCTS: Cholecystectomy clips noted in the gallbladder fossa. No greater than e xpected ductal dilatation. PANCREAS: Unremarkable No ductal dilation. SPLEEN: Unremarkable No splenomegaly. ADRENALS: Unremarkable No mass. KIDNEYS AND URETERS: Relatively atrophic appearance of the right kidney. No hydronephrosis or obstructive intrarenal or intraureteral stones. STOMACH AND BOWEL: Unremarkable No obstruction. No mucosal thickening. PELVIS: APPENDIX: No findings to suggest acute appendicitis. BLADDER: Unremarkable No stones. REPRODUCTIVE: Unremarkable as visualized. CHEST, ABDOMEN and PELVIS: INTRAPERITONEAL SPACE: Unremarkable No significant fluid collection. No free air. BONES/JOINTS: Multilevel nondisplaced fractures of the left anterior ribs and right anterior costoc hondral junctions. Benign enostosis demonstrated within the T10 vertebral body. No dislocation. No vertebral body fractures. SOFT TISSUES: Unremarkable VASCULATURE: Ectasia of the ascending thoracic aorta, measuring up to 4.5 cm in diameter. No signif icant pericardial effusion. Mild multivessel coronary artery calcifications. No aortic aneurysm. LYMPH NODES: Multiple prominent but nonpathologically retroperitoneal enlarged lymph nodes. These topher ear stable to slightly improved from prior exam. IMPRESSION: 1. Multilevel nondisplaced fractures of the left anterior ribs and right anterior cost ochondral junctions. 2. Mild focal tree-in-bud opacities in the dependent right lower lobe, suggesting endobronchial inf ection. 3. Ectasia of the ascending thoracic aorta, measuring up to 4.5 cm in diameter. 4. Allowing for lack of intravenous contrast, no acute findings in the abdomen or pelvis. 5. Borderline hepatomegaly. Resolution of previously demonstrated splenomegaly. Stable to slightly improved appearance of retroperitoneal lymph nodes. 6. Relatively atrophic appearance of the right kidney. 7. Slightly decreased intraventricular attenuation versus the myocardial parenchyma is suggestive o f anemia. Electronically signed by: Jackson Arias MD 06/30/2023 12:41 AM CDT Due to temporary technical issues with the PACS/Fluency reporting system, reports are being signed by the in house radiologists without review as a courtesy to insure prompt reporting. The interpreting radiologist is fully responsible for the content of the report.
== END 2023-06-30 01:37 | disposition home or self-care (01) ==
LOC: ER 20:47
DX: J18.9 Pneumonia, unspecified organism (principal); S22.41XA Multiple fractures of ribs, right side, initial encounter for closed fracture; R94.5 Abnormal results of liver function studies; I10 Essential (primary) hypertension; F17.210 Nicotine dependence, cigarettes, uncomplicated; Z88.6 Allergy status to analgesic agent; Z91.013 Allergy to seafood; Z91.018 Allergy to other foods
CPT/HCPCS: 93005; 85025; 80048; 36415; 83735; 84132; 85610; 80076; 84484 ×2; 83880; 71250; 74176; 71045; 94640; 96375; 96374; 99285; J1940; J7613; J7644; J2930; J0696

== ENCOUNTER 2023-06-30 17:24 | Emergency (ER) | payer OTHER ==
[2023-06-30 18:14] LABS: Absolute Eosinophils 0.1 K/uL (0-0.5); Absolute Lymphocytes (CBC) 1.2 K/uL (0.7-4.9); Absolute Monocytes 0.5 K/uL (0.1-1.3); Absolute Neutrophil 3.3 K/uL (1.8-8.0); Basophils % 0.5 % (0-1.3); Eosinophils % 1.6 % (0-4.4); Hematocrit 25.8 % (36.0-45.0); Hemoglobin 8.9 g/dL (12.0-15.0); Lymphocytes % 22.7 % (15.3-44.8); MCH 32.9 pg (27.0-35.0); MCHC 34.6 g/dL (32.0-36.0); MCV 95.1 fL (80-100); MPV 6.4 fL (7.6-11.3); Monocytes % 9.7 % (3.3-12.3); Neutrophils % 65.5 % (41.7-73.7); Nucleated Red Blood Cells % 0.1 % (0-0); Platelets 163 thou/uL (152-406); RBC Red Blood Cell Count 2.71 M/uL (3.86-4.86); Red Cell Distribution Width 13.8 % (12.1-15.2)
[2023-06-30 18:30] LABS: ALT/SGPT 134 U/L (13-56); AST/SGOT 95 U/L (15-37); Albumin 3.4 g/dL (3.4-5.0); Albumin/Globulin Ratio 1.1 (1.1-1.8); Alkaline Phosphatase 268 U/L (45-117); BUN Blood Urea Nitrogen 25 mg/dL (7-18); Bicarbonate 28 mEq/L (21-32); Bilirubin Total 0.3 mg/dL (0.2-1.0); Glomerular Filtration Rate 34 ml/min (=/>90); Glucose Level 71 mg/dL (74-106); Magnesium 1.6 mg/dL (1.6-2.4); Protein, Total 6.4 g/dL (6.4-8.2); Sodium Level 135 mEq/L (136-145)
[2023-06-30 18:32] LABS: Bilirubin Direct < 0.1 mg/dL (0-0.2); Bilirubin Indirect, Calculated ND mg/dL (0.2-0.8)
--- NOTE | 2023-06-30 18:53 | RAD REPORT ---
[facility] CLINICAL HISTORY: CHEST PAIN COMPARISON: Chest Single View dated 06/29/2023; Chest Single View dated 06/28/2023; Chest Single View dated 06/17/2023; Chest Single View dated 06/15/2023 TECHNIQUE: Portable AP view of the chest. FINDINGS: The lungs are clear. No pneumothorax or effusion. The cardiomediastinal contours are unre markable. IMPRESSION: No acute cardiopulmonary process.
[2023-06-30 18:55] LABS: Specific Gravity 1.021 (1.005-1.030); Sqamous Epithelial <5 /HPF (None Seen); Urine Bacteria None Seen /HPF (<20); Urine Bilirubin NEGATIVE (Negative); Urine Blood Negative (Negative); Urine Clarity Clear (Clear); Urine Color Light-Yellow (Yellow); Urine Culture Reflex Order REFLEXED; Urine Glucose NEGATIVE (Negative); Urine Ketones NEGATIVE (Negative); Urine Micro Reflex YN NO BILL MICROSCOPIC; Urine Mucus Slight /HPF (None Seen); Urine Nitrite NEGATIVE (Negative); Urine Protein TRACE (Negative); Urine RBC <5 /HPF (None Seen); Urine Urobilinogen Normal (Normal)
[2023-06-30 19:06] LABS: Barbiturates NEGATIVE (NEGATIVE); Benzodiazepines NEGATIVE (NEGATIVE); Cocaine NEGATIVE (NEGATIVE); METHAMPHETAM NEGATIVE (NEGATIVE); Methadone NEGATIVE (NEGATIVE); Opiates NEGATIVE (NEGATIVE); Phencyclidine NEGATIVE (NEGATIVE); THC Cannibis NEGATIVE (NEGATIVE)
--- NOTE | 2023-06-30 19:20 | RAD REPORT ---
EXAM DESCRIPTION: CT - Head Brain Wo Cont - 06/30/2023 6:09 pm CLINICAL HISTORY: hallucinations COMPARISON: Head Brain Wo Cont dated 06/15/2023; Head Brain Wo Cont dated 03/09/2023; Chest Single Vi ew dated 06/07/2023 TECHNIQUE: Noncontrast head CT images were obtained without IV contrast. Multiplanar reformats were generated and reviewed. All CT scans are performed using dose optimization technique as appropriate and may include automated exposure control or mA/KV adjustment according to patient size. FINDINGS: No intracranial hemorrhage, mass, or edema. Midline structures are unremarkable. Stable ventricular caliber with ex vacuo dilation of the right lateral ventricle Encephalomalacia in the right subinsular, anterior temporal, and centrum semiovale regions, stable. M ild atrophy of the right cerebral peduncle as well. Currie-white matter differentiation is preserved el sewhere, without evidence of acute infarct. No abnormal extra-axial fluid collections. Mastoid air cells and visualized portions of the paranasal sinuses are clear. No acute bony findings. IMPRESSION: No evidence of an acute intracranial process. Stable chronic findings as above.
--- NOTE | 2023-06-30 19:39 | ER ---
Nurse's Notes [facility] Name: Geetha Khan Age: 48 yrs Sex: Female : 1975 Arrival Date: 06/30/2023 Time: 17:24 Bed 18 Private MD: Diagnosis: Chest pain, unspecified Presentation: 06/29 17:31 Chief complaint: EMS states: patient reports chest pains, dizziness, and cp4 hallucinations. Coronavirus screen: Client denies travel out of the [place] in the last 14 days. At this time, the client does not indicate any symptoms associated with coronavirus-19. Ebola Screen: Patient negative for fever greater than or equal to 101.5 degrees Fahrenheit, and additional compatible Ebola Virus Disease symptoms Patient denies exposure to infectious person. Patient denies travel to an Ebola-affected area in the 21 days before illness onset. No symptoms or risks identified at this time. Initial Sepsis Screen: Does the patient meet any 2 criteria? No. Patient's initial sepsis screen is negative. Does the patient have a suspected source of infection? No. Patient's initial sepsis screen is negative. Risk Assessment: Do you want to hurt yourself or someone else? Patient reports no desire to harm self or others. 17:31 Method Of Arrival: EMS: [facility] cp4 17:31 Acuity: CORRINA 3 cp4 17:31 Onset of symptoms is unknown. cp4 Triage Assessment: 17:32 General: Appears in no apparent distress. Behavior is calm, cooperative, appropriate cp4 for age. Pain: Denies pain. Cardiovascular: Reports chest pain, lightheadedness, hallucinations. Historical: - Allergies: 17:32 Aspirin; cp4 17:32 FISH PRODUCT DERIVATIVES; cp4 17:32 CRANBERRY; cp4 17:32 GRAPEFRUIT; cp4 17:32 mushrooms; cp4 - PMHx: 17:32 Asthma; Cerebrovascular accident; COPD; Hypertension; Left arm paralysis and left leg cp4 weakness from previous CVA (Thyroid problem); Myocardial infarction; Seizures; Thyroid problem; - Immunization history:: Adult Immunizations up to date. - Infectious Disease History:: Denies. CDIFF, C. Auris, ESBL, MRSA (w/in 1 year), VRE (w/in 1 year), TB, . - Social history:: Smoking status: Patient denies any tobacco usage or history of. - Family history:: not pertinent. Screenin:35 [facility] ED Fall Risk Assessment (Adult) History of falling in the last 3 months, cp4 including since admission No falls in past 3 months (0 pts) Confusion or Disorientation No (0 pts) Intoxicated or Sedated No (0 pts) Impaired Gait No (0 pts) Mobility Assist Device Used No (0 pt) Altered Elimination No (0 pt) Score/Fall Risk Level 0 - 2 = Low Risk Oriented to surroundings, Maintained a safe environment, Assessed \T\ reinforced patient's understanding of fall precautions, Hourly rounding (assess needs \T\ fall precautionary measures) done. Abuse screen: Denies threats or abuse. Nutritional screening: No deficits noted. Tuberculosis screening: No symptoms or risk factors identified. Assessment: 17:35 Pain: Pain does not radiate. Pain began suddenly. Cardiovascular: Reports chest pain, cp4 lightheadedness. 19:46 Reassessment: Pt noted to have a BGL of 71. Given soda and sand which. Provider jb4 notified, okayed to continue with discharge. Vital Signs: 17:31 BP 115 / 74; Pulse 88; Resp 18; Temp 98; Pulse Ox 96% ; cp4 ED Course: 17:29 Patient arrived in ED. cp4 17:29 Kye De Anda MD is Attending Physician. rt 17:32 Triage completed. cp4 17:32 Arm band placed on right wrist. Patient placed in an exam room, on a stretcher. cp4 17:35 Placed in gown. Bed in low position. Call light in reach. Side rails up X2. Client cp4 placed on continuous cardiac and pulse oximetry monitoring. NIBP monitoring applied. lunchroom monitor on. 17:35 No provider procedures requiring assistance completed. O2 via room air. cp4 17:47 Yasmeen Vasquez is Primary Nurse. cp4 17:59 XRAY Chest (1 view) In Process Unspecified. EDMS 18:04 Basic Metabolic Panel Sent. cp4 18:04 CBC with Diff Sent. cp4 18:04 Magnesium Sent. cp4 18:04 Troponin HS Sent. cp4 18:04 Initial lab(s) drawn, by nc, sent to lab. Inserted saline lock: 22 gauge in right cp4 antecubital area, using aseptic technique. Blood collected. 18:11 CT Head Brain wo Cont In Process Unspecified. EDMS 18:37 UDS Sent. cp4 18:37 UAM Sent. cp4 18:38 Urine collected: straight cath specimen, clear, Amount Returned: 200mL. cp4 19:05 Attending Physician role handed off by Kye De Anda MD sp3 19:05 Hoa Eddy MD is Attending Physician. sp3 19:59 Provided Education on: chest pain. cp4 19:59 intact, bleeding controlled, No redness/swelling at site. Pressure dressing applied. cp4 Administered Medications: No medications were administered Medication: 17:35 VIS not applicable for this client. cp4 Outcome: 19:38 Discharge ordered by . sp3 19:53 Patient left the ED. jb4 19:58 Discharged to home via wheelchair, cp4 19:58 Condition: stable 19:58 Discharge instructions given to patient, Instructed on discharge instructions, follow up and referral plans. Demonstrated understanding of instructions, follow-up care, Signatures: Dispatcher [employer] EDMS Jaziel Storm, YANETH RN jb4 Hoa Eddy MD MD sp3 Kye De Anda MD MD rt Yasmeen Vasquez cp4
--- NOTE | 2023-06-30 19:39 | EDPHYS ---
Physician Documentation [facility] Name: Geetha Khan Age: 48 yrs Sex: Female : 1975 Arrival Date: 06/30/2023 Time: 17:24 Bed 18 Private MD: ED Physician Hoa Eddy HPI: 06/29 18:53 This 48 yrs old Female presents to ER via EMS with complaints of Chest Pain. rt 18:53 Patient who was seen earlier in the ED within the past 24 hours for chest pain presents rt to the ED with complaint of chest pain. She also reports hallucinations, reports seeing things. Denies SI, HI. Denies auditory hallucinations. Denies other acute complaints, symptoms are moderate in severity. No other aggravating relieving factors.. Historical: - Allergies: 17:32 Aspirin; cp4 17:32 FISH PRODUCT DERIVATIVES; cp4 17:32 CRANBERRY; cp4 17:32 GRAPEFRUIT; cp4 17:32 mushrooms; cp4 - PMHx: 17:32 Asthma; Cerebrovascular accident; COPD; Hypertension; Left arm paralysis and left leg cp4 weakness from previous CVA (Thyroid problem); Myocardial infarction; Seizures; Thyroid problem; - Immunization history:: Adult Immunizations up to date. - Infectious Disease History:: Denies. CDIFF, C. Auris, ESBL, MRSA (w/in 1 year), VRE (w/in 1 year), TB, . - Social history:: Smoking status: Patient denies any tobacco usage or history of. - Family history:: not pertinent. ROS: 18:53 Constitutional: Negative for fever, chills, and weight loss, Respiratory: Negative for rt shortness of breath, cough, wheezing, and pleuritic chest pain, Abdomen/GI: Negative for abdominal pain, nausea, vomiting, diarrhea, and constipation, MS/Extremity: Negative for injury and deformity, Skin: Negative for injury, rash, and discoloration, Neuro: Negative for headache, weakness, numbness, tingling, and seizure, 18:53 Cardiovascular: Positive for chest pain, Negative for edema, 18:53 Psych: Positive for visual hallucinations, Negative for suicide gesture, suicidal ideation, Exam: 18:53 Constitutional: This is a well developed, well nourished patient who is awake, alert, rt and in no acute distress. Head/Face: Normocephalic, atraumatic. Chest/axilla: Normal chest wall appearance and motion. Nontender with no deformity. No lesions are appreciated. Cardiovascular: Regular rate and rhythm with a normal S1 and S2. No gallops, murmurs, or rubs. Normal PMI, no JVD. No pulse deficits. Respiratory: Lungs have equal breath sounds bilaterally, clear to auscultation and percussion. No rales, rhonchi or wheezes noted. No increased work of breathing, no retractions or nasal flaring. Abdomen/GI: Soft, non-tender, with normal bowel sounds. No distension or tympany. No guarding or rebound. No evidence of tenderness throughout. Skin: Warm, dry with normal turgor. Normal color with no rashes, no lesions, and no evidence of cellulitis. MS/ Extremity: Pulses equal, no cyanosis. Neurovascular intact. Full, normal range of motion. Neuro: Awake and alert, GCS 15, oriented to person, place, time, and situation. Cranial nerves II-XII grossly intact. Motor strength 5/5 in all extremities. Sensory grossly intact. Cerebellar exam normal. Normal gait. 18:53 ECG was reviewed by the Attending Physician. Vital Signs: 17:31 BP 115 / 74; Pulse 88; Resp 18; Temp 98; Pulse Ox 96% ; cp4 MDM: 17:33 Patient medically screened. rt 19:38 Data reviewed: vital signs, old medical records, lab test result(s), EKG, radiologic sp3 studies. ED course: Full workup is negative including troponin and CT head. We will discharge patient home at this time.. 06/29 17:38 Order name: Basic Metabolic Panel; Complete Time: 18:52 rt 06/29 17:38 Order name: CBC with Diff; Complete Time: 18:52 rt 06/29 17:38 Order name: LFT's; Complete Time: 18:52 rt 06/29 17:38 Order name: Magnesium; Complete Time: 18:52 rt 06/29 17:38 Order name: Troponin HS; Complete Time: 18:52 rt 06/29 17:38 Order name: UAM; Complete Time: 19:15 rt 06/29 17:38 Order name: UDS; Complete Time: 19:15 rt 06/29 19:11 Order name: Urine Culture EDMS 06/29 17:38 Order name: XRAY Chest (1 view); Complete Time: 19:15 rt 06/29 17:38 Order name: CT Head Brain wo Cont; Complete Time: 19:37 rt 06/29 17:38 Order name: Cardiac monitoring; Complete Time: 18:04 rt 06/29 17:38 Order name: EKG - Nurse/Tech; Complete Time: 18:04 rt 06/29 17:38 Order name: IV Saline Lock; Complete Time: 18:04 rt 06/29 17:38 Order name: Labs collected and sent; Complete Time: 18:04 rt 06/29 17:38 Order name: O2 Per Protocol; Complete Time: 18:04 rt 06/29 17:38 Order name: O2 Sat Monitoring; Complete Time: 18:04 rt EC:53 Rate is 67 beats/min. Rhythm is regular, Normal Sinus Rhythm with No ectopy. QRS [place] rt is Normal. NH interval is normal. QRS interval is normal. QT interval is normal. No Q waves. Clinical impression: NSR w/ Non-specific ST/T Changes. Administered Medications: No medications were administered Disposition Summary: 06/30/23 19:38 Discharge Ordered Notes: Location: Home sp3 Condition: Stable sp3 Diagnosis - Chest pain, unspecified sp3 Followup: sp3 - With: Private Physician - When: Upon discharge from the Emergency Department - Reason: Continuance of care Discharge Instructions: - Discharge Summary Sheet sp3 - Nonspecific Chest Pain, Adult sp3 Forms: - Medication Reconciliation Form sp3 - Thank You Letter sp3 - Antibiotic Education sp3 - Prescription Opioid Use sp3 - Patient Portal Instructions sp3 - Leadership Thank You Letter sp3 Signatures: Dispatcher [employer] EDHoa Bahena MD MD sp3 Kye De Anda MD MD rt Yasmeen Vasquez cp4 Corrections: (The following items were deleted from the chart) 17:39 17:39 BASIC METABOLIC PANEL+C.LAB.BRZ ordered. EDMS EDMS 17:39 17:39 CBC+H.LAB.BRZ ordered. EDMS EDMS 17:39 17:39 HEPATIC FUNCTION+C.LAB.BRZ ordered. EDMS EDMS 17:39 17:39 MAGNESIUM+C.LAB.BRZ ordered. EDMS EDMS 17:39 17:39 Troponin High Sensitivity+C.LAB.BRZ ordered. EDMS EDMS 17:39 17:39 Urinalysis W/Microscopic+U.LAB.BRZ ordered. EDMS EDMS 17:39 17:39 URINE DRUG SCREEN+UC.LAB.BRZ ordered. EDMS EDMS 17:39 17:39 Chest Single View+RAD.RAD.BRZ ordered. EDMS EDMS 17:39 17:39 Head Brain Wo Cont+CT.RAD.BRZ ordered. EDMS EDMS
[2023-06-30 20:29] VITALS: BP 115/74; TEMP 98; O2SAT 96
== END 2023-06-30 19:53 | disposition home or self-care (01) ==
LOC: ER 17:24
DX: R07.9 Chest pain, unspecified (principal); R44.1 Visual hallucinations; I10 Essential (primary) hypertension; F17.210 Nicotine dependence, cigarettes, uncomplicated; Z88.6 Allergy status to analgesic agent; Z91.013 Allergy to seafood; Z91.018 Allergy to other foods
CPT/HCPCS: 36415; 70450; 71045; 80048; 80076; 80307; 81001; 83735; 84484; 85025; 87086; 87088; 93005; 99285

== ENCOUNTER 2023-07-03 21:05 | Emergency (ER) | payer OTHER ==
[2023-07-03] MEDS ORDERED: KETOROLAC 30 MG/ML INJ ONE (21:31)
[2023-07-03] MEDS ORDERED: HYDROCODONE/APAP 10/325 TAB ONE (21:31)
[2023-07-03] MEDS ORDERED: ALBUTEROL 2.5 MG/3 ML NEB SOL ONE (23:16)
--- NOTE | 2023-07-03 23:30 | ER ---
Nurse's Notes [facility] Name: Geetha Khan Age: 48 yrs Sex: Female : 1975 Arrival Date: 07/03/2023 Time: 21:05 Bed 2 Private MD: Diagnosis: Unspecified injury of head, initial encounter;Acute head injury, acute right shoulder contusion, complications of immobility Presentation: 07/02 21:10 Chief complaint: Patient states: HEADACHE AND RIGHT SHOULDER PAIN AFTER FALLING OFF [facility] BED. EMS states: PT STATED SHE TOLD THEM SHE FELL OUT THE BED AND HIT HER HEAD. PT'S SISTER INFORMED EMS SHE DID NOT FALL OUT THE BED SHE CRAWLED OUT THE BED ONTO THE FLOOR. HAVING HEAD,NECK AND RIGHT SHOULD PAIN. Coronavirus screen: At this time, the client does not indicate any symptoms associated with coronavirus-19. Ebola Screen: No symptoms or risks identified at this time. Initial Sepsis Screen: Does the patient meet any 2 criteria? No. Patient's initial sepsis screen is negative. Does the patient have a suspected source of infection? No. Patient's initial sepsis screen is negative. Risk Assessment: Do you want to hurt yourself or someone else? Patient reports no desire to harm self or others. Onset of symptoms was July 03, 2023. 21:10 Method Of Arrival: EMS: [facility] 21:10 Acuity: CORRINA 4 jj7 Triage Assessment: 21:10 General: Appears in no apparent distress. comfortable, Behavior is calm, cooperative, jj7 appropriate for age. Pain: Complains of pain in head, neck, right arm and face. Cardiovascular: No deficits noted. 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 Flu vaccine is up to date. - Infectious Disease History:: Denies. - Social history:: Smoking status: Patient reports the use of cigarette tobacco products, smokes one-half pack cigarettes per day, Patient/guardian denies using alcohol, street drugs. - Family history:: not pertinent. Screenin:10 [facility] ED Fall Risk Assessment (Adult) History of falling in the last 3 months, [facility] including since admission Yes- fall prone (multiple falls) (3 pts) Confusion or Disorientation No (0 pts) Intoxicated or Sedated No (0 pts) Impaired Gait Yes (1 pt) Mobility Assist Device Used No (0 pt) Altered Elimination No (0 pt) Score/Fall Risk Level 3 or more points = High Risk Oriented to surroundings, Maintained a safe environment, Educated pt \T\ family on fall prevention, incl call for assistance when getting out of bed. Abuse screen: Denies threats or abuse. Nutritional screening: No deficits noted. Tuberculosis screening: No symptoms or risk factors identified. Assessment: 21:10 Reassessment: SEE TRIAGE ASSESSMENT. Pain: Complains of pain in head Pain radiates to [facility] scalp. Vital Signs: 21:10 BP 125 / 78; Pulse 67; Resp 16; Temp 97.9; Pulse Ox 100% on R/A; Weight 56.25 kg; jj7 Height 5 ft. 7 in. ; Pain 10/10; 21:17 BP 125 / 78; Pulse 69; Resp 18; Temp 98.1(O); Pulse Ox 99% on R/A; Weight 27.77 kg; rv1 Height 5 ft. 3 in. ; Pain 10/10; 22:15 BP 110 / 68; Pulse 64; Resp 17; Pulse Ox 97% ; 7 23:15 BP 95 / 73; Pulse 58; Resp 16; Pulse Ox 100% on 2 lpm NC; [facility] 07/03 00:00 BP 119 / 81; Pulse 69; Resp 20; Temp 98; Pulse Ox 97% on R/A; [facility] 07/02 21:17 Body Mass Index 10.85 (27.77 kg, 160.02 cm) [facility] 07/02 21:10 Pain Scale: Adult [facility] 21:17 Pain Scale: Adult [facility] Shannock Coma Score: 07/02 23:30 Eye Response: spontaneous(4). Motor Response: obeys commands(6). Verbal Response: sp4 oriented(5). Total: 15. ED Course: 21:10 Patient arrived in ED. wm 21:10 Arm band placed on left wrist. Patient placed in an exam room, on a stretcher. jj7 21:10 Patient has correct armband on for positive identification. Bed in low position. Call jj7 light in reach. Side rails up X2. Client placed on continuous cardiac and pulse oximetry monitoring. NIBP monitoring applied. Warm blanket given. 21:10 No provider procedures requiring assistance completed. jj7 21:13 Uriel Cannon MD is Attending Physician. sp4 21:39 Triage completed. jj7 22:00 Oxygen administration via nasal cannula \T\ 2L/min Response to oxygen therapy: symptoms jj7 improved. 22:36 CT Head C Spine In Process Unspecified. EDMS 23:28 Josse Olson MD is Referral Physician. sp4 07/03 00:00 Patient did not have IV access during this emergency room visit. jj7 Administered Medications: 07/02 21:30 Drug: Ketorolac IM 60 mg IM once Route: IM; Site: right deltoid; jj7 07/03 00:02 Follow up: Response: Marked relief of symptoms; Pain is decreased jj7 07/02 21:30 Drug: [place] PO 10 mg-325 mg 1 tabs PO once Route: PO; jj7 07/03 00:02 Follow up: Response: Marked relief of symptoms; Pain is decreased jj7 07/02 23:19 Drug: Albuterol Inhalation 2.5 mg Inhalation once Route: Inhalation; jj7 07/03 00:02 Follow up: Response: Marked relief of symptoms jj7 Medication: 07/02 21:10 VIS not applicable for this client. jj7 Outcome: 23:29 Discharge ordered by . sp4 07/03 00:00 Discharged to home via wheelchair, with significant other, jj7 Condition: improved Discharge instructions given to patient, Instructed on discharge instructions, Demonstrated understanding of instructions, 00:02 Patient left the ED. jj7 Signatures: Dispatcher [employer] EDMS Maura Dela Cruz Juwairiyah, RN RN jj7 Autumn Rodriguez rv1 Uriel Cannon MD MD sp4
--- NOTE | 2023-07-03 23:30 | EDPHYS ---
Physician Documentation [facility] Name: Geetha Khan Age: 48 yrs Sex: Female : 1975 Arrival Date: 07/03/2023 Time: 21:05 Bed 2 Private MD: ED Physician Uirel Cannon HPI: 07/02 21:13 This 48 yrs old Female presents to ER via Unassigned with complaints of Chest sp4 Pain. 23:30 48-year-old female with history of hemorrhagic CVA with residual left hemiparesis sp4 presents with EMS after acute fall at home and acute head and the right shoulder injury.. Patient states she fell off the bed and injured her head the right shoulder. There was no LOC denied chest pain. 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 Flu vaccine is up to date. - Infectious Disease History:: Denies. - Social history:: Smoking status: Patient reports the use of cigarette tobacco products, smokes one-half pack cigarettes per day, Patient/guardian denies using alcohol, street drugs. - Family history:: not pertinent. ROS: 23:30 Constitutional: Negative for fever, chills, and weight loss, positive right shoulder sp4 injury positive head injury 23:30 All other systems are negative, Exam: 23:30 Constitutional: This is a well developed, well nourished patient who is awake, alert, sp4 and in no acute distress. Patient has physical deconditioning and the residual left hemiparesis from prior CVA. She is nonambulatory Head/Face: Normocephalic, atraumatic. Eyes: Pupils equal round and reactive to light, extra-ocular motions intact. Lids and lashes normal. Conjunctiva and sclera are not injected. Cornea within normal limits. Periorbital areas with no swelling, redness, or edema. ENT: Nares patent. No nasal discharge, no septal abnormalities noted. Tympanic membranes are normal and external auditory canals are clear. Oropharynx with no redness, swelling, or masses, exudates, or evidence of obstruction, uvula midline. Mucous membranes moist. Neck: Trachea midline, no thyromegaly or masses palpated, and no cervical lymphadenopathy. Supple, full range of motion without nuchal rigidity, or vertebral point tenderness. Chest/axilla: Normal chest wall appearance and motion. Nontender with no deformity. No lesions are appreciated. Cardiovascular: Regular rate and rhythm with a normal S1 and S2. No gallops, murmurs, or rubs. Normal PMI, no JVD. No pulse deficits. Respiratory: Lungs have equal breath sounds bilaterally, clear to auscultation and percussion. No rales, rhonchi or wheezes noted. No increased work of breathing, no retractions or nasal flaring. Abdomen/GI: Soft, with normal bowel sounds. No distension or tympany. No guarding or rebound. No evidence of tenderness throughout. Back: No spinal tenderness. No costovertebral tenderness. Skin: Warm, dry with normal turgor. Normal color with no rashes, no lesions, and no evidence of cellulitis. MS/ Extremity: Pulses equal, no cyanosis. Neurovascular intact. Exam limited secondary to left hemiparesis, no sign of right shoulder impairment Neuro: Awake and alert, GCS 15, oriented to person, place, time, and situation. There is left hemiparesis from prior CVA, no new neurologic deficits. Psych: Awake, alert, with orientation to person, place and time. Behavior, mood, and affect are within normal limits Vital Signs: 21:10 BP 125 / 78; Pulse 67; Resp 16; Temp 97.9; Pulse Ox 100% on R/A; Weight 56.25 kg; jj7 Height 5 ft. 7 in. ; Pain 10/10; 21:17 BP 125 / 78; Pulse 69; Resp 18; Temp 98.1(O); Pulse Ox 99% on R/A; Weight 27.77 kg; rv1 Height 5 ft. 3 in. ; Pain 10/10; 22:15 BP 110 / 68; Pulse 64; Resp 17; Pulse Ox 97% ; jj7 23:15 BP 95 / 73; Pulse 58; Resp 16; Pulse Ox 100% on 2 lpm NC; j7 07/03 00:00 BP 119 / 81; Pulse 69; Resp 20; Temp 98; Pulse Ox 97% on R/A; 7 07/02 21:17 Body Mass Index 10.85 (27.77 kg, 160.02 cm) rv1 07/02 21:10 Pain Scale: Adult [facility] 21:17 Pain Scale: Adult rv [place] Coma Score: 07/02 23:30 Eye Response: spontaneous(4). Motor Response: obeys commands(6). Verbal Response: sp4 oriented(5). Total: 15. MDM: 21:23 Patient medically screened. sp4 23:26 ED course: PROCEDURE: CT Head and Cervical Spine Without Intravenous Contrast CLINICAL sp4 INDICATION: The patient is 48 years old and is Female; head injury TECHNIQUE: Axial computed tomography images of the head/brain and cervical spine without intravenous contrast. Sagittal and coronal reformatted images were created and reviewed. This CT exam was performed using one or more of the following dose reduction techniques: automated exposure control, adjustment of the mA and/or kV according to patient size, and/or use of iterative reconstruction technique. DLP: 1894 mGy*cm COMPARISON: CT head without contrast dated 06/30/2023. FINDINGS: BRAIN: Prior right basal ganglia infarct. Mild prominence of cerebral sulci and cisterns. No hemorrhage. No significant white matter disease. VENTRICLES: Unremarkable. No ventriculomegaly. SKULL: No acute fracture. SINUSES: Unremarkable as visualized. No acute sinusitis. MASTOID AIR CELLS: Unremarkable as visualized. No mastoid effusion. VERTEBRAE: Straightening of the cervical lordosis. No acute fracture. DISCS/SPINAL CANAL/NEURAL FORAMINA: No acute findings. No spinal canal stenosis. SOFT TISSUES: Unremarkable. IMPRESSION: 1. Straightening of the cervical lordosis. Findings may be positional or due to muscle spasm. 2. No acute intracranial abnormality. 3. No acute cervical spine fracture or subluxation. 4. Cerebral volume loss and prior right basal ganglia infarct. Electronically signed by: Quentin Hernandez DO 07/03/2023 11:00 PM. 23:30 Data reviewed: vital signs, nurses notes, EMS record, old medical records, radiologic sp4 studies, CT scan. ED course: Patient denied chest pain on presentation. Patient reported head injury in the right shoulder injury. The right shoulder exam is normal. CT head and C-spine unremarkable. Patient stable for discharge home.. 07/02 21:17 Order name: CT Head C Spine sp4 Administered Medications: 21:30 Drug: Ketorolac IM 60 mg IM once Route: IM; Site: right deltoid; jj7 07/03 00:02 Follow up: Response: Marked relief of symptoms; Pain is decreased jj7 07/02 21:30 Drug: [place] PO 10 mg-325 mg 1 tabs PO once Route: PO; jj7 07/03 00:02 Follow up: Response: Marked relief of symptoms; Pain is decreased jj7 07/02 23:19 Drug: Albuterol Inhalation 2.5 mg Inhalation once Route: Inhalation; jj7 07/03 00:02 Follow up: Response: Marked relief of symptoms jj7 Disposition Summary: 07/03/23 23:29 Discharge Ordered Notes: Please see Dr Jarrod Phillips at Dr. Frye's office

Location: Home sp4 Problem: new sp4 Symptoms: have improved sp4 Condition: Stable sp4 Diagnosis - Unspecified injury of head, initial encounter sp4 - Acute head injury, acute right shoulder contusion, complications of immobility sp4 Followup: sp4 - With: Josse Olson MD - When: 7 - 10 days - Reason: Recheck today's complaints Discharge Instructions: - Discharge Summary Sheet sp4 - Head Injury, Adult sp4 Forms: - Patient Portal Instructions sp4 Signatures: Dispatcher [employer] Ernestine Goodman RN RN jj7 Uriel Cannon MD MD sp4 Corrections: (The following items were deleted from the chart) 07/02 21:16 21:13 EKG - Nurse/Tech ordered. sp4 sp4 21:16 21:13 IV Saline Lock ordered. sp4 sp4 21:17 21:13 Labs collected and sent ordered. sp4 sp4 21:18 21:18 Head C Spine MPR Wo Con+CT.RAD.BRZ ordered. EDMS EDMS 21:40 21:13 BASIC METABOLIC PANEL+C.LAB.BRZ ordered. EDMS EDMS 21:40 21:13 CBC+H.LAB.BRZ ordered. EDMS EDMS 21:40 21:13 Troponin High Sensitivity+C.LAB.BRZ ordered. EDMS EDMS 21:50 21:13 Cardiac monitoring ordered. sp4 jj7 21:50 21:13 Oxygen Per Protocol ordered. sp4 jj7 21:50 21:13 O2 Sat Monitoring ordered. sp4 jj7
[2023-07-04 09:04] VITALS: BP 119/81; O2SAT 97
[2023-07-04 09:05] VITALS: TEMP 98
--- NOTE | 2023-07-04 20:30 | RAD REPORT ---
EXAM DESCRIPTION: CT - Head C Spine Mpr Wo Con - 07/04/2023 6:40 am CLINICAL HISTORY: The patient is 48 years old and is Female; head injury TECHNIQUE: Axial computed tomography images of the head/brain and cervical spine without intravenous contrast. Sagittal and coronal reformatted images were created and reviewed. This CT exam was pe rformed using one or more of the following dose reduction techniques: automated exposure control, a djustment of the mA and/or kV according to patient size, and/or use of iterative reconstruction techn ique. DLP: 1894 mGy*cm COMPARISON: CT head without contrast dated 06/30/2023. FINDINGS: BRAIN: Prior right basal ganglia infarct. Mild prominence of cerebral sulci and cisterns . No hemorrhage. No significant white matter disease. VENTRICLES: Unremarkable. No ventriculomegaly. SKULL: No acute fracture. SINUSES: Unremarkable as visualized. No acute sinusitis. MASTOID AIR CELLS: Unremarkable as visualized. No mastoid effusion. VERTEBRAE: Straightening of the cervical lordosis. No acute fracture. DISCS/SPINAL CANAL/NEURAL FORAMINA: No acute findings. No spinal canal stenosis. SOFT TISSUES: Unremarkable. IMPRESSION: 1. Straightening of the cervical lordosis. Findings may be positional or due to musc le spasm. 2. No acute intracranial abnormality. 3. No acute cervical spine fracture or subluxation. 4. Cerebral volume loss and prior right basal ganglia infarct. Electronically signed by: Quentin Hernandez DO 07/03/2023 11:00 PM CDT Due to temporary technical issues with the PACS/Fluency reporting system, reports are being signed by the in house radiologists without review as a courtesy to insure prompt reporting. The interpreting radiologist is fully responsible for the content of the report.
== END 2023-07-04 00:02 | disposition home or self-care (01) ==
LOC: ER 21:05
DX: S09.90XA Unspecified injury of head, initial encounter (principal); S40.011A Contusion of right shoulder, initial encounter; I69.954 Hemiplegia and hemiparesis following unspecified cerebrovascular disease affecting left non-dominant side; Z88.6 Allergy status to analgesic agent; Z91.013 Allergy to seafood; Z91.018 Allergy to other foods
CPT/HCPCS: 93005; 70450; 72125; 96372; 99285; J7613

== ENCOUNTER 2023-07-04 22:31 | Emergency (ER) | payer OTHER ==
--- NOTE | 2023-07-05 00:18 | EDPHYS ---
Physician Documentation [facility] Name: Geetha Khan Age: 48 yrs Sex: Female : 1975 Arrival Date: 07/04/2023 Time: 22:31 Bed 16 Private MD: ED Physician Russell Rodriguez HPI: 07/04 00:12 This 48 yrs old Female presents to ER via EMS with complaints of Dizziness. sb4 00:12 dizziness/lightheadedness onset just [employer]. no other associated signs and symptoms. no sb4 changes in medication. states she religiously takes her BP medication, although does not remember what it is. 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 - Infectious Disease History:: Denies. - Social history:: Smoking status: Patient reports the use of cigarette tobacco products, smokes one-half pack cigarettes per day. ROS: 07/04 00:12 Constitutional: Negative for fever, chills, and weight loss, sb4 Neuro: Positive for dizziness, All other systems are negative, Exam: 00:12 Constitutional: This is a well developed, well nourished patient who is awake, alert, sb4 and in no acute distress. Head/Face: Normocephalic, atraumatic. Eyes: Extra-ocular motions intact. Periorbital areas with no swelling, redness, or edema. ENT: Mucous membranes moist. Cardiovascular: Regular rate and rhythm with a normal S1 and S2. Respiratory: Lungs have equal breath sounds bilaterally, clear to auscultation and percussion. No rales, rhonchi or wheezes noted. No increased work of breathing, no retractions or nasal flaring. Abdomen/GI: Soft, non-tender, no distension. Vital Signs: 07/03 22:00 BP 110 / 70; Pulse 67; Resp 16; Pulse Ox 100% on R/A; me1 22:50 BP 110 / 70; Pulse 68; Resp 18; Temp 98.4(O); Pulse Ox 98% on R/A; Weight 61.23 kg; me1 Height 5 ft. 2 in. ; Pain 0/10; 23:00 BP 110 / 80; Pulse 62; Resp 16; Pulse Ox 99% on R/A; me1 07/04 00:25 BP 139 / 85; Pulse 67; Resp 16; Temp 98; Pulse Ox 97% ; Pain 0/10; ha1 07/03 22:50 Body Mass Index 24.69 (61.23 kg, 157.48 cm) me1 22:50 Pain Scale: Adult me1 07/04 00:25 Pain Scale: Adult ha1 MDM: 07/03 22:34 Patient medically screened. sb4 07/04 00:17 Data reviewed: vital signs, nurses notes, EMS record, lab test result(s), EKG, sb4 radiologic studies, and as a result, I will discharge patient. 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 07/03 22:34 Order name: EKG; Complete Time: 22:35 sb4 EC:12 Rate is 63 beats/min. Rhythm is regular, Normal Sinus Rhythm. AK interval is prolonged sb4 at 204 msec. QRS interval is normal at 92 msec. QT interval is normal at [address] changes noted. Clinical impression: Abnormal EKG without significant change and LVH. Interpreted by me. Reviewed by me. Administered Medications: 00:25 Drug: Acetaminophen PO 1000 mg PO once Route: PO; ha1 00:37 Follow up: Response: No adverse reaction; Marked relief of symptoms ha1 Disposition Summary: 07/05/23 00:18 Discharge Ordered Notes: Location: Home sb4 Problem: new sb4 Symptoms: are resolved sb4 Condition: Stable sb4 Diagnosis - Dizziness and giddiness sb4 Followup: sb4 - With: Josse Olson MD - When: 2 - 3 days - Reason: Recheck today's complaints, Re-evaluation by your physician Discharge Instructions: - Discharge Summary Sheet sb4 - Dizziness sb4 Forms: - Thank You Letter sb4 - Patient Portal Instructions sb4 - Leadership Thank You Letter sb4 Addendum: 07/06/2023 01:14 I was immediately available for consultation during this patient's visit. I did not e c2 personally see the patient or discuss the patient with the SEGUN. . Signatures: Aydee Ulrich RN RN ha1 Kalli Bradshaw PA-C PA-C sb4 Nohemy Clark RN RN me1 Russell Rodriguez MD MD ec2
--- NOTE | 2023-07-05 00:18 | ER ---
Nurse's Notes [facility] Name: Geetha Khan Age: 48 yrs Sex: Female : 1975 Arrival Date: 07/04/2023 Time: 22:31 Bed 16 Private MD: Diagnosis: Dizziness and giddiness Presentation: 07/03 22:50 Chief complaint: EMS states: toned out for dizziness and nausea. Coronavirus screen: me1 Vaccine status: Patient reports being unvaccinated. Ebola Screen: No symptoms or risks identified at this time. Initial Sepsis Screen: Does the patient meet any 2 criteria? No. Patient's initial sepsis screen is negative. Does the patient have a suspected source of infection? No. Patient's initial sepsis screen is negative. Risk Assessment: Do you want to hurt yourself or someone else? Patient reports no desire to harm self or others. Onset of symptoms was July 04, 2023. 22:50 Method Of Arrival: EMS [facility] 22:50 Acuity: CORRINA 4 me1 Triage Assessment: 22:51 General: Appears comfortable, unkempt, well developed, well nourished, Behavior is me1 calm, cooperative, appropriate for age, Reports c/o dizziness and nausea. Pain: Denies pain. EENT: No signs and/or symptoms were reported regarding the EENT system. Neuro: Level of Consciousness is awake, alert, obeys commands, Oriented to person, place, time, situation, Appropriate for age. Cardiovascular: Capillary refill < 3 seconds Patient's skin is warm and dry. Respiratory: Airway is patent Respiratory effort is even, unlabored, Respiratory pattern is regular, symmetrical. GI: Reports nausea. : No signs and/or symptoms were reported regarding the genitourinary system. Derm: Skin is intact, is healthy with good turgor, Skin is pink, warm \T\ dry. Musculoskeletal: No signs and/or symptoms reported regarding the musculoskeletal system. 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 - Infectious Disease History:: Denies. - Social history:: Smoking status: Patient reports the use of cigarette tobacco products, smokes one-half pack cigarettes per day. Screenin:54 [facility] ED Fall Risk Assessment (Adult) History of falling in the last 3 months, me1 including since admission No falls in past 3 months (0 pts) Confusion or Disorientation No (0 pts) Intoxicated or Sedated No (0 pts) Impaired Gait No (0 pts) Mobility Assist Device Used No (0 pt) Altered Elimination No (0 pt) Score/Fall Risk Level 0 - 2 = Low Risk Maintained a safe environment, Provided non-skid footwear, Hourly rounding (assess needs \T\ fall precautionary measures) done. Abuse screen: Denies threats or abuse. Nutritional screening: No deficits noted. Tuberculosis screening: No symptoms or risk factors identified. Assessment: 22:56 General: See triage assessment . me1 23:30 Reassessment: Patient and/or family updated on plan of care and expected duration. Pain me1 level reassessed. Patient is alert, oriented x 3, equal unlabored respirations, skin warm/dry/pink. Patient states feeling better. Vital Signs: 22:00 BP 110 / 70; Pulse 67; Resp 16; Pulse Ox 100% on R/A; me1 22:50 BP 110 / 70; Pulse 68; Resp 18; Temp 98.4(O); Pulse Ox 98% on R/A; Weight 61.23 kg; me1 Height 5 ft. 2 in. ; Pain 0/10; 23:00 BP 110 / 80; Pulse 62; Resp 16; Pulse Ox 99% on R/A; me1 07/04 00:25 BP 139 / 85; Pulse 67; Resp 16; Temp 98; Pulse Ox 97% ; Pain 0/10; ha1 07/03 22:50 Body Mass Index 24.69 (61.23 kg, 157.48 cm) me1 22:50 Pain Scale: Adult me1 07/04 00:25 Pain Scale: Adult ha1 ED Course: 07/03 22:34 Patient arrived in ED. sb4 22:34 Kalli Bradshaw PA-C is PHCP. sb4 22:34 Russell Rodriguez MD is Attending Physician. sb4 22:49 Nohemy Clark, RN is Primary Nurse. me1 22:51 Triage completed. me1 22:51 Arm band placed on Patient placed in an exam room. me1 22:54 Patient has correct armband on for positive identification. Bed in low position. Call me1 light in reach. Side rails up X2. Provided Education on: POC. Verbalized understanding. . 22:54 No provider procedures requiring assistance completed. me1 23:16 EKG done, by ED staff. vk 23:17 Warm blanket given. vk 04 00:12 Diet: Patient given snack. Patient given juice. vk 00:18 Josse Olson MD is Referral Physician. sb4 00:31 Patient did not have IV access during this emergency room visit. ha1 Administered Medications: 00:25 Drug: Acetaminophen PO 1000 mg PO once Route: PO; ha1 00:37 Follow up: Response: No adverse reaction; Marked relief of symptoms ha1 Medication: 00:31 VIS not applicable for this client. ha1 Outcome: 00:18 Discharge ordered by . sb4 00:29 Condition: stable ha1 00:29 Discharge instructions given to patient, family, Instructed on discharge instructions, follow up and referral plans. Demonstrated understanding of instructions, follow-up care, 00:32 Discharged to home via wheelchair, with family, ha1 00:36 Patient left the ED. ha1 Signatures: Aydee Ulrich RN RN ha1 Kalli Bradshaw PA-C PAHermes 4 Nohemy Clark, RN RN mt1 Chata Gibbons
[2023-07-05] MEDS ORDERED: ACETAMINOPHEN 500 MG TAB ONE (00:25)
[2023-07-05 08:41] VITALS: BP 139/85; TEMP 98; O2SAT 97
== END 2023-07-05 00:36 | disposition home or self-care (01) ==
LOC: ER 22:31
DX: R42 Dizziness and giddiness (principal); I10 Essential (primary) hypertension; F17.210 Nicotine dependence, cigarettes, uncomplicated; Z86.73 Personal history of transient ischemic attack (TIA), and cerebral infarction without residual deficits; Z88.6 Allergy status to analgesic agent; Z91.013 Allergy to seafood; Z91.018 Allergy to other foods
CPT/HCPCS: 93005; 99284

== ENCOUNTER 2023-07-06 21:43 | Emergency (ER) | payer OTHER ==
--- NOTE | 2023-07-06 22:27 | ER ---
Nurse's Notes [facility] Name: Geetha Khan Age: 48 yrs Sex: Female : 1975 Arrival Date: 07/06/2023 Time: 21:43 Bed 7 Private MD: Diagnosis: Acute post-traumatic headache;Acute right shoulder pain, musculoskeletal pain acute , History of frequent falls Presentation: 07/05 21:44 Chief complaint: EMS states: fall, headache, right shoulder pain, back pain. vc1 Coronavirus screen:. Ebola Screen: Patient negative for fever greater than or equal to 101.5 degrees Fahrenheit, and additional compatible Ebola Virus Disease symptoms Patient denies exposure to infectious person. Patient denies travel to an Ebola-affected area in the 21 days before illness onset. No symptoms or risks identified at this time. Risk Assessment: Do you want to hurt yourself or someone else? Patient reports no desire to harm self or others. Onset of symptoms was July 06, 2023. 21:44 Method Of Arrival: EMS: [facility] vc1 21:44 Acuity: CORRINA 3 vc1 21:56 Initial Sepsis Screen: Does the patient meet any 2 criteria? No. Patient's initial vc1 sepsis screen is negative. Does the patient have a suspected source of infection? No. Patient's initial sepsis screen is negative. Triage Assessment: 21:58 General: Appears in no apparent distress. uncomfortable, Behavior is calm, cooperative, vc1 appropriate for age. Pain: Complains of pain in headache, right shoulder, right lower back, chest. EENT: No deficits noted. No signs and/or symptoms were reported regarding the EENT system. Neuro: Level of Consciousness is awake, alert, obeys commands, Paralysis in left arm(s) leg(s). Cardiovascular: Chest pain is described as mild. Respiratory: Airway is patent Respiratory effort is even, unlabored, Respiratory pattern is regular, symmetrical. GI: No deficits noted. No signs and/or symptoms were reported involving the gastrointestinal system. : No deficits noted. No signs and/or symptoms were reported regarding the genitourinary system. Musculoskeletal: Circulation, motion, and sensation intact. Reports pain in posterior aspect of right shoulder, right lower back, chest. Historical: - Allergies: 21:45 Aspirin; vc1 21:45 CRANBERRY; vc1 21:45 FISH PRODUCT DERIVATIVES; vc1 21:45 GRAPEFRUIT; vc1 21:45 mushrooms; vc1 - PMHx: 21:45 Asthma; Cerebrovascular accident; COPD; Hypertension; Left arm paralysis and left leg vc1 weakness from previous CVA (Thyroid problem); Myocardial infarction; Seizures; Thyroid problem; - Infectious Disease History:: Denies. - Family history:: not pertinent. - Social history:: Smoking status: Patient reports the use of cigarette tobacco products, smokes one-half pack cigarettes per day. Screenin:09 [facility] ED Fall Risk Assessment (Adult) History of falling in the last 3 months, km8 including since admission Yes- single mechanical fall (1 pt) Confusion or Disorientation No (0 pts) Intoxicated or Sedated No (0 pts) Impaired Gait Yes (1 pt) Mobility Assist Device Used Yes (1 pt) Altered Elimination No (0 pt) Score/Fall Risk Level 3 or more points = High Risk Oriented to surroundings, Maintained a safe environment, Educated pt \T\ family on fall prevention, incl call for assistance when getting out of bed, Assessed \T\ reinforced patient's understanding of fall precautions, Provided non-skid footwear, Hourly rounding (assess needs \T\ fall precautionary measures) done, Used ambulatory aids as needed (educated on \T\ assisted with), Implemented a Fall Risk Plan of Care, Remained w/in arm's length of patient and in sight while toileting, Offered frequent toileting (1:1 observation), Utilized family, sitter, or virtual animal anatomy teacher as indicated. Abuse screen: Denies threats or abuse. Denies injuries from another. Nutritional screening: No deficits noted. Tuberculosis screening: No symptoms or risk factors identified. Assessment: 22:09 General: Appears in no apparent distress. comfortable, Behavior is calm, cooperative, km8 appropriate for age. Pain: Complains of pain in left scapular area, right scapular area, thoracic area, chest, right arm and left arm Pain currently is 10 out of 10 on a pain scale. Neuro: Level of Consciousness is awake, alert, obeys commands, Oriented to person, place, time, situation. Cardiovascular: Reports chest pain, Patient's skin is warm and dry. Rhythm is regular Chest pain is described as diffuse, quality is sharp, is located in chest wall. Respiratory: Airway is patent Respiratory effort is even, unlabored, Respiratory pattern is regular, symmetrical. GI: No signs and/or symptoms were reported involving the gastrointestinal system. : No signs and/or symptoms were reported regarding the genitourinary system. EENT: No signs and/or symptoms were reported regarding the EENT system. Derm: No signs and/or symptoms reported regarding the dermatologic system. Skin is intact, is healthy with good turgor, Skin is dry, Skin is pink, warm \T\ dry. normal, Skin temperature is warm. Musculoskeletal: Range of motion: limited in left arm and left leg Reports pain in bilateral shoulder, upper back, and bilateral arms. Vital Signs: 21:56 BP 129 / 96; Pulse 102; Resp 14; Temp 97.9; Pulse Ox 98% ; Pain 10/10; vc1 21:57 Weight 61.23 kg; Height 5 ft. 2 in. ; vc1 22:00 BP 133 / 98; Pulse 66; Resp 16; Pulse Ox 96% on R/A; km8 21:57 Body Mass Index 24.69 (61.23 kg, 157.48 cm) vc1 21:56 Pain Scale: Adult vc1 [place] Coma Score: 22:09 Eye Response: spontaneous(4). Motor Response: obeys commands(6). Verbal Response: km8 oriented(5). Total: 15. 07/06 21:03 Eye Response: spontaneous(4). Motor Response: obeys commands(6). Verbal Response: sp4 oriented(5). Total: 15. ED Course: 07/05 21:44 Patient arrived in ED. vc1 21:45 Triage completed. vc1 21:45 Uriel Cannon MD is Attending Physician. sp4 21:56 Arm band placed on right wrist. vc1 22:09 Patient has correct armband on for positive identification. Bed in low position. Call km8 light in reach. Side rails up X2. Pulse ox on. NIBP on. 22:27 Rene Baca, RN is Primary Nurse. bm8 22:36 Provided Education on: d/c teaching. km8 22:36 No provider procedures requiring assistance completed. km8 22:37 Patient did not have IV access during this emergency room visit. km8 Administered Medications: 22:34 Drug: [place] PO 10 mg-325 mg 1 tabs PO once Route: PO; bm8 22:38 Follow up: Response: Medication administered at discharge. km8 22:34 Drug: Methocarbamol PO 750 mg PO once Route: PO; bm8 22:38 Follow up: Response: Medication administered at discharge. km8 22:34 Drug: Ibuprofen PO 600 mg PO once Route: PO; bm8 22:38 Follow up: Response: Medication administered at discharge. km8 22:34 Drug: Promethazine PO 25 mg PO once Route: PO; bm8 22:38 Follow up: Response: Medication administered at discharge. km8 Medication: 22:09 VIS not applicable for this client. km8 Outcome: 22:26 Discharge ordered by . sp4 22:37 Discharged to home via wheelchair, waiting in lobby for to burr picker km8 22:37 Condition: good 22:37 Discharge instructions given to patient, Instructed on discharge instructions, follow up and referral plans. Demonstrated understanding of instructions, follow-up care, 22:37 Patient left the ED. km8 Signatures: Syeda Bruce RN RN vc1 Uriel Cannon MD MD sp4 Mary Coker RN RN km8 Rene Baca, RN RN 8
--- NOTE | 2023-07-06 22:27 | EDPHYS ---
Physician Documentation [facility] Name: Geetha Khan Age: 48 yrs Sex: Female : 1975 Arrival Date: 07/06/2023 Time: 21:43 Bed 7 Private MD: ED Physician Uriel Cannon HPI: 07/05 21:45 This 48 yrs old Female presents to ER via EMS with complaints of pain in the sp4 head. 07/06 21:00 48-year-old female presents with complaint of acute fall at home associated with sp4 headache and also right shoulder pain. Patient has history of hemorrhagic CVA with associated left-sided hemiparesis and multiple falls at home. This is patient's visit #8 this month for the similar complaint. Patient is well familiar to me. Patient has had a left heart cath last year that revealed no sign of significant coronary occlusion. . Historical: - Allergies: 07/05 21:45 Aspirin; vc1 21:45 CRANBERRY; vc1 21:45 FISH PRODUCT DERIVATIVES; vc1 21:45 GRAPEFRUIT; vc1 21:45 mushrooms; vc1 - PMHx: 21:45 Asthma; Cerebrovascular accident; COPD; Hypertension; Left arm paralysis and left leg vc1 weakness from previous CVA (Thyroid problem); Myocardial infarction; Seizures; Thyroid problem; - Infectious Disease History:: Denies. - Family history:: not pertinent. - Social history:: Smoking status: Patient reports the use of cigarette tobacco products, smokes one-half pack cigarettes per day. ROS: 07/06 21:03 Constitutional: Negative for fever, chills, and weight loss, positive headache positive sp4 right shoulder pain All other systems are negative, Exam: 21:03 Constitutional: This is a well developed, well nourished patient who is awake, alert, sp4 and in no acute distress. Positive longstanding left hemiparesis. No sign of acute traumatic injury on exam Head/Face: Normocephalic, atraumatic. Eyes: Pupils equal round and reactive to light, extra-ocular motions intact. Lids and lashes normal. Conjunctiva and sclera are not injected. Cornea within normal limits. Periorbital areas with no swelling, redness, or edema. ENT: Nares patent. No nasal discharge, no septal abnormalities noted. Tympanic membranes are normal and external auditory canals are clear. Oropharynx with no redness, swelling, or masses, exudates, or evidence of obstruction, uvula midline. Mucous membranes moist. Neck: Trachea midline, no thyromegaly or masses palpated, and no cervical lymphadenopathy. Supple, full range of motion without nuchal rigidity, or vertebral point tenderness. Chest/axilla: Normal chest wall appearance and motion. Nontender with no deformity. No lesions are appreciated. Cardiovascular: Regular rate and rhythm with a normal S1 and S2. No gallops, murmurs, or rubs. Normal PMI, no JVD. No pulse deficits. Respiratory: Lungs have equal breath sounds bilaterally, clear to auscultation and percussion. No rales, rhonchi or wheezes noted. No increased work of breathing, no retractions or nasal flaring. Abdomen/GI: Soft, with normal bowel sounds. No distension or tympany. No guarding or rebound. No evidence of tenderness throughout. Back: No spinal tenderness. No costovertebral tenderness. Skin: Warm, dry with normal turgor. Normal color with no rashes, no lesions, and no evidence of cellulitis. MS/ Extremity: Pulses equal, no cyanosis. Neurovascular intact. Left longstanding hemiparesis with associated contractures. Neuro: Awake and alert, GCS 15, oriented to person, place, time, and situation. Positive left-sided hemiparesis with associated contractures Psych: Awake, alert, with orientation to person, place and time. Behavior, mood, and affect are within normal limits 21:03 ECG was reviewed by the Attending Physician. EKG 2202 sinus rhythm at the rate of 62. Left ventricular hypertrophy. No sign of ST elevation or depression. No significant change since prior EKG Vital Signs: 07/05 21:56 BP 129 / 96; Pulse 102; Resp 14; Temp 97.9; Pulse Ox 98% ; Pain 10/10; vc1 21:57 Weight 61.23 kg; Height 5 ft. 2 in. ; vc1 22:00 BP 133 / 98; Pulse 66; Resp 16; Pulse Ox 96% on R/A; km8 21:57 Body Mass Index 24.69 (61.23 kg, 157.48 cm) vc1 21:56 Pain Scale: Adult vc1 [place] Coma Score: 22:09 Eye Response: spontaneous(4). Motor Response: obeys commands(6). Verbal Response: km8 oriented(5). Total: 15. 07/06 21:03 Eye Response: spontaneous(4). Motor Response: obeys commands(6). Verbal Response: sp4 oriented(5). Total: 15. MDM: 07/05 21:46 Patient medically screened. sp4 07/06 21:03 Differential Diagnosis altered mental status, sepsis, flu, Acute head injury. Data sp4 reviewed: vital signs, nurses notes, EMS record, old medical records, EKG. ED course: Based on patient's exam she has no sign of hematoma, no sign of contusion laceration, no sign of deformity. No sign of acute traumatic injury. Patient stable for discharge home after she was provided p.o. pain control. No further workup indicated. . 21:06 Consideration of Admission/Observation Escalation of care including sp4 admission/observation considered. 07/05 22:09 Order name: EKG; Complete Time: 22:09 [facility] 07/05 22:09 Order name: EKG - Nurse/Tech; Complete Time: 22:09 [facility] EC:03 Rate is 62 beats/min. Rhythm is regular, Normal Sinus Rhythm. QRS [place] is Normal. [place] sp4 interval is normal. QRS interval is normal. QT interval is normal. No ST changes noted. Clinical impression: No evidence of ischemia. Interpreted by me. Reviewed by me. Administered Medications: 07/05 22:34 Drug: [place] PO 10 mg-325 mg 1 tabs PO once Route: PO; bm8 22:38 Follow up: Response: Medication administered at discharge. km8 22:34 Drug: Methocarbamol PO 750 mg PO once Route: PO; bm8 22:38 Follow up: Response: Medication administered at discharge. km8 22:34 Drug: Ibuprofen PO 600 mg PO once Route: PO; bm8 22:38 Follow up: Response: Medication administered at discharge. km8 22:34 Drug: Promethazine PO 25 mg PO once Route: PO; bm8 22:38 Follow up: Response: Medication administered at discharge. km8 Disposition Summary: 07/06/23 22:26 Discharge Ordered Notes: Location: Home sp4 Problem: new sp4 Symptoms: have improved sp4 Condition: Stable sp4 Diagnosis - Acute post-traumatic headache sp4 - Acute right shoulder pain, musculoskeletal pain acute , History of frequent falls sp4 Followup: sp4 - With: Private Physician - When: 7 - 10 days - Reason: Recheck today's complaints Discharge Instructions: - Discharge Summary Sheet sp4 - Head Injury, Adult, [id number] sp4 Signatures: Syeda Bruce RN RN vc1 Uriel Cannon MD MD sp4 Mary Coker RN RN km8 Rene Baca RN RN bm8
[2023-07-06] MEDS ORDERED: PROMETHAZINE 25 MG TABLET ONE (22:30)
[2023-07-06] MEDS ORDERED: HYDROCODONE/APAP 10/325 TAB ONE (22:30)
[2023-07-06] MEDS ORDERED: IBUPROFEN 200 MG TAB PO ONE (22:30)
[2023-07-06] MEDS ORDERED: methocarbamoL 750 MG TAB ONE (22:31)
[2023-07-06 22:46] VITALS: BP 133/98; TEMP 97.9; O2SAT 96
== END 2023-07-06 22:37 | disposition home or self-care (01) ==
LOC: ER 21:43
DX: G44.319 Acute post-traumatic headache, not intractable (principal); M25.511 Pain in right shoulder; M79.18 Myalgia, other site; Z91.81 History of falling; G81.94 Hemiplegia, unspecified affecting left nondominant side; Z88.6 Allergy status to analgesic agent; Z91.013 Allergy to seafood; Z91.018 Allergy to other foods
CPT/HCPCS: 99284; Q0169

== ENCOUNTER 2023-07-08 22:38 | Emergency (ER) | payer OTHER ==
[2023-07-08 23:42] LABS: Absolute Eosinophils 0.3 K/uL (0-0.5); Absolute Monocytes 0.3 K/uL (0.1-1.3); Absolute Neutrophil 2.1 K/uL (1.8-8.0); Basophils % 0.8 % (0-1.3); Eosinophils % 9.3 % (0-4.4); Hematocrit 31.7 % (36.0-45.0); Hemoglobin 10.8 g/dL (12.0-15.0); MCH 32.9 pg (27.0-35.0); MCHC 34.2 g/dL (32.0-36.0); MCV 96.3 fL (80-100); MPV 6.5 fL (7.6-11.3); Monocytes % 7.9 % (3.3-12.3); Nucleated Red Blood Cells % 0.1 % (0-0); Platelets 212 thou/uL (152-406); RBC Red Blood Cell Count 3.29 M/uL (3.86-4.86); Red Cell Distribution Width 14.9 % (12.1-15.2)
[2023-07-08] MEDS ORDERED: CLOPIDOGREL 75 MG TABLET ONE (23:47)
[2023-07-08] MEDS ORDERED: KETOROLAC 30 MG/ML INJ ONE (23:48)
[2023-07-08 23:54] LABS: Anion Gap 9.2 mEq/L (5.0-15.0); Potassium 5.2 mEq/L (3.5-5.1); Troponin High Sensitivity 24.6 pg/mL (<58.9)
[2023-07-09] MEDS ORDERED: ALBUTEROL 2.5 MG/3 ML NEB SOL ONE (00:08)
[2023-07-09] MEDS ORDERED: ACETAMINOPHEN 500 MG TAB ONE (01:14)
[2023-07-09] MEDS ORDERED: METHOCARBAMOL 1,000 MG/10 ML VIAL ONE (01:14)
[2023-07-09] MEDS ORDERED: NA CHLORIDE 0.9% 100 ML ONE (01:16)
--- NOTE | 2023-07-09 02:29 | ER ---
Nurse's Notes [facility] Name: Geetha Khan Age: 48 yrs Sex: Female : 1975 Arrival Date: 07/08/2023 Time: 22:38 Bed 19 Private MD: Diagnosis: Chest pain, unspecified Presentation: 07/07 22:45 Chief complaint: Patient states: CP STARTED 1.5 HRS AGO. Coronavirus screen: At this jj7 time, the client does not indicate any symptoms associated with coronavirus-19. Ebola Screen: No symptoms or risks identified at this time. Initial Sepsis Screen: Does the patient meet any 2 criteria? No. Patient's initial sepsis screen is negative. Does the patient have a suspected source of infection? No. Patient's initial sepsis screen is negative. Risk Assessment: Do you want to hurt yourself or someone else? Patient reports no desire to harm self or others. Onset of symptoms was July 08, 2023. 22:45 Method Of Arrival: EMS: [facility] j 22:45 Acuity: CORRINA 3 jj7 Triage Assessment: 22:45 General: Appears in no apparent distress. comfortable, Behavior is calm, cooperative, jj7 appropriate for age. Pain: Complains of pain in chest Pain radiates to anterior aspect of right shoulder. Cardiovascular: Reports chest pain, Capillary refill < 3 seconds is brisk Patient's skin is warm and dry. 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 - Infectious Disease History:: Denies. - Social history:: Smoking status: Patient reports the use of cigarette tobacco products, smokes one-half pack cigarettes per day, Patient/guardian denies using alcohol, street drugs. Screenin:45 [facility] ED Fall Risk Assessment (Adult) History of falling in the last 3 months, jj7 including since admission Yes- fall prone (multiple falls) (3 pts) Confusion or Disorientation No (0 pts) Intoxicated or Sedated No (0 pts) Impaired Gait Yes (1 pt) Mobility Assist Device Used No (0 pt) Altered Elimination No (0 pt) Score/Fall Risk Level 3 or more points = High Risk Oriented to surroundings, Maintained a safe environment, Educated pt \T\ family on fall prevention, incl call for assistance when getting out of bed. Abuse screen: Denies threats or abuse. Nutritional screening: No deficits noted. Tuberculosis screening: No symptoms or risk factors identified. Assessment: 22:45 Reassessment: SEE TRIAGE ASSESSMENT. [facility] Vital Signs: 22:45 BP 137 / 83; Pulse 66; Resp 19; Temp 97.8; Pulse Ox 100% on R/A; Weight 65.77 kg; j7 Height 5 ft. 3 in. ; Pain 10/10; 23:51 BP 138 / 103; Pulse 65; Resp 17; Pulse Ox 100% ; 7 07/08 01:00 BP 107 / 77; Pulse 77; Resp 20; Pulse Ox 100% ; j7 02:10 BP 115 / 80; Pulse 72; Resp 16; Pulse Ox 100% ; j7 02:46 BP 115 / 80; Pulse 69; Resp 17; Temp 98.7; Pulse Ox 100% ; Pain 0/10; 7 07/07 22:45 Body Mass Index 25.69 (65.77 kg, 160.02 cm) [facility] 07/07 22:45 Pain Scale: Adult [facility] 02:46 Pain Scale: Adult 7 ED Course: 07/07 22:42 Patient arrived in ED. ty 22:44 Michael Nguyen PA is PHCP. cp 22:44 Sallie Wilson is Attending Physician. cp 22:45 Arm band placed on right wrist. Patient placed in an exam room, on a stretcher, on [facility] event crew technician, on pulse oximetry. 22:45 Patient has correct armband on for positive identification. Bed in low position. Call j light in reach. Side rails up X2. Adult w/ patient. Client placed on continuous cardiac and pulse oximetry monitoring. NIBP monitoring applied. electrotype servicer on. Warm blanket given. 23:06 Naga, Juwairiyah, RN is Primary Nurse. jj7 23:09 Triage completed. jj7 23:12 Inserted saline lock: 22 gauge in right antecubital area, using aseptic technique. jj7 Blood collected. 23:22 EKG done, by packaging tech. reviewed by Michael LEBRON. oe 23:27 Basic Metabolic Panel Sent. jj7 23:27 CBC with Diff Sent. jj7 23:27 Troponin HS Sent. jj7 23:31 XRAY Chest (1 view) In Process Unspecified. EDMS 07/08 00:21 Pillow given. oe 01:30 Warm blanket given. jj7 01:59 Troponin High Sensitivity Sent. jj7 02:46 No provider procedures requiring assistance completed. IV discontinued, intact, jj7 bleeding controlled, No redness/swelling at site. Pressure dressing applied. Administered Medications: 07/07 23:51 Drug: Clopidogrel PO 75 mg PO once Route: PO; jj7 07/08 01:06 Follow up: Response: No adverse reaction jj7 07/07 23:51 Drug: Ketorolac IVP 15 mg IVP once Route: IVP; Site: right antecubital; jj7 07/08 01:06 Follow up: Response: Marked relief of symptoms jj7 00:17 Drug: Albuterol Inhalation 2.5 mg Inhalation every 20 minutes x3 Route: Inhalation; jj7 00:40 Drug: Albuterol Inhalation 2.5 mg Inhalation every 20 minutes x3 Route: Inhalation; jj7 01:06 Drug: Albuterol Inhalation 2.5 mg Inhalation every 20 minutes x3 Route: Inhalation; jj7 01:18 Drug: Acetaminophen PO 1000 mg PO once Route: PO; jj7 02:23 Follow up: Response: Marked relief of symptoms jj7 01:19 Drug: Methocarbamol IVPB 1 grams IVPB once over 1 hrs; (mix in NS 100 mL) Route: IVPB; jj7 Infused Over: 1 hrs; Site: right antecubital; 02:22 Follow up: IV Status: Completed infusion jj7 Medication: 07/07 22:45 VIS not applicable for this client. jj7 Outcome: 07/08 02:29 Discharge ordered by . cp 02:46 Discharged to home via wheelchair, with significant other, jj7 02:46 Condition: improved 02:46 Discharge instructions given to patient, significant other, Instructed on discharge instructions, follow up and referral plans. medication usage, Demonstrated understanding of instructions, follow-up care, medications, Prescriptions given X 1, 02:48 Patient left the ED. jj7 Signatures: Dispatcher [employer] EDMS Michael Nguyen PA PA cp Espinosa, Orlando oe Johnson, Juwairiyah, RN RN jj7 [employer] Reddy
--- NOTE | 2023-07-09 02:30 | EDPHYS ---
Physician Documentation [facility] Name: Geetha Khan Age: 48 yrs Sex: Female : 1975 Arrival Date: 07/08/2023 Time: 22:38 Bed 19 Private MD: ED Physician Sallie Wilson HPI: 07/07 23:00 This 48 yrs old Female presents to ER via EMS with complaints of Chest Pain. cp 23:00 The patient or guardian reports chest pain that is located primarily in the anterior cp chest wall. Onset: 1 hour(s) ago. 23:00 The pain does not radiate. cp 23:00 The chest pain is described as constant. Duration: The patient or guardian reports a cp single episode, that is still ongoing, and unchanged. 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 - Infectious Disease History:: Denies. - Social history:: Smoking status: Patient reports the use of cigarette tobacco products, smokes one-half pack cigarettes per day, Patient/guardian denies using alcohol, street drugs. ROS: 23:05 Cardiovascular: Positive for chest pain, cp 23:05 Constitutional: Negative for body aches, chills, fever, cp Exam: 23:10 Constitutional: The patient appears in no acute distress, alert, awake, cp non-diaphoretic, non-toxic, well developed, well nourished, 23:10 Head/Face: Normocephalic, atraumatic. cp 23:10 Eyes: Periorbital structures: appear normal, Conjunctiva: normal, no exudate, no cp injection, Sclera: no appreciated abnormality, Lids and lashes: appear normal, bilaterally, 23:10 ENT: External ear(s): are unremarkable, Nose: is normal, Mouth: Lips: moist, Oral mucosa: pink and intact, moist, Posterior pharynx: Airway: no evidence of obstruction, patent, 23:10 Neck: ROM/movement: is normal, is supple, without pain, no range of motions limitations, 23:10 Chest/axilla: Inspection: normal, 23:10 Cardiovascular: Rate: normal, Rhythm: regular, Edema: ankle edema, that is mild, JVD: is not appreciated, 23:10 Respiratory: the patient does not display signs of respiratory distress, Respirations: normal, no use of accessory muscles, no retractions, labored breathing, is not present, Breath sounds: decreased breath sounds, are not appreciated, stridor, is not appreciated, wheezing: is not appreciated, 23:10 Abdomen/GI: Inspection: abdomen appears normal, Palpation: abdomen is soft and non-tender, in all quadrants, 23:10 Neuro: Orientation: to person, place \T\ time. Mentation: is normal, Motor: no acute changes, Sensation: no acute changes, 23:20 ECG was reviewed by the Attending Physician. cp Vital Signs: 22:45 BP 137 / 83; Pulse 66; Resp 19; Temp 97.8; Pulse Ox 100% on R/A; Weight 65.77 kg; jj7 Height 5 ft. 3 in. ; Pain 10/10; 23:51 BP 138 / 103; Pulse 65; Resp 17; Pulse Ox 100% ; jj7 07/08 01:00 BP 107 / 77; Pulse 77; Resp 20; Pulse Ox 100% ; jj7 02:10 BP 115 / 80; Pulse 72; Resp 16; Pulse Ox 100% ; jj7 02:46 BP 115 / 80; Pulse 69; Resp 17; Temp 98.7; Pulse Ox 100% ; Pain 0/10; jj7 07/07 22:45 Body Mass Index 25.69 (65.77 kg, 160.02 cm) jj7 07/07 22:45 Pain Scale: Adult jj7 02:46 Pain Scale: Adult jj7 MDM: 07/07 22:45 Patient medically screened. cp 07/08 02:28 The patient was not given aspirin in the Emergency Department. Not indicated due to cp patient's past medical history. 02:28 Data reviewed: vital signs, nurses notes, lab test result(s), EKG, radiologic studies. cp I considered the following discharge prescriptions or medication management in the emergency department Medications were administered in the Emergency Department. See MAR. Care significantly affected by the following chronic conditions: Hypertension, Chronic Obstructive Pulmonary Disease. Counseling: I had a detailed discussion with the patient and/or guardian regarding the historical points, exam findings, and any diagnostic results supporting the discharge/admit diagnosis, lab results, radiology results, to return to the emergency department if symptoms worsen or persist or if there are any questions or concerns that arise at home. Response to treatment: the patient's symptoms have markedly improved after treatment, and as a result, I will discharge patient. Special discussion: Based on the patient's history, exam, and Dx evaluation, there is no indication for emergent intervention or inpatient Tx. It is understood by the patient/guardian that if the Sx's persist or worsen they need to return immediately for re-evaluation. 07/07 22:52 Order name: Basic Metabolic Panel; Complete Time: 23:54 07/07 23:55 Interpretation: Normal except: NA 133; K 5.2; BUN 31; CRE 1.59; GFR 40. cp 07/07 22:52 Order name: CBC with Diff; Complete Time: 23:54 07/07 23:55 Interpretation: Normal except: WBC 3.70; RBC 3.29; HGB 10.8; HCT 31.7; MPV 6.5; cp EOSINOPHIL % 9.3. 07/07 22:52 Order name: Troponin HS; Complete Time: 23:54 07/07 23:55 Interpretation: Troponin HS 24.6; Reviewed. 07/08 01:37 Order name: Troponin High Sensitivity; Complete Time: 02:28 07/07 22:52 Order name: XRAY Chest (1 view) 07/07 22:52 Order name: EKG; Complete Time: 22:53 07/07 22:52 Order name: Cardiac monitoring; Complete Time: 23:22 07/07 22:52 Order name: EKG - Nurse/Tech; Complete Time: 23:22 07/07 22:52 Order name: IV Saline Lock; Complete Time: 23:27 07/07 22:52 Order name: Labs collected and sent; Complete Time: 23:27 07/07 22:52 Order name: O2 Per Protocol; Complete Time: 23:27 07/07 22:52 Order name: O2 Sat Monitoring; Complete Time: :27 cp EC/22 23:20 Rate is 65 beats/min. Rhythm is regular. MO interval is prolonged at 206 msec. QRS cp interval is normal. QT interval is normal. T waves are Inverted in leads I, II, aVL, V5, V6. Interpreted by me. Reviewed by me. Administered Medications: 23:51 Drug: Clopidogrel PO 75 mg PO once Route: PO; jj7 07/08 01:06 Follow up: Response: No adverse reaction jj7 07/07 23:51 Drug: Ketorolac IVP 15 mg IVP once Route: IVP; Site: right antecubital; jj7 07/08 01:06 Follow up: Response: Marked relief of symptoms jj7 00:17 Drug: Albuterol Inhalation 2.5 mg Inhalation every 20 minutes x3 Route: Inhalation; jj7 00:40 Drug: Albuterol Inhalation 2.5 mg Inhalation every 20 minutes x3 Route: Inhalation; j7 01:06 Drug: Albuterol Inhalation 2.5 mg Inhalation every 20 minutes x3 Route: Inhalation; jj7 01:18 Drug: Acetaminophen PO 1000 mg PO once Route: PO; jj7 02:23 Follow up: Response: Marked relief of symptoms jj7 01:19 Drug: Methocarbamol IVPB 1 grams IVPB once over 1 hrs; (mix in NS 100 mL) Route: IVPB; jj7 Infused Over: 1 hrs; Site: right antecubital; 02:22 Follow up: IV Status: Completed infusion j7 Disposition: 02:50 Co-signature as Attending Physician, Sallie Wilson I agree with the assessment ci and plan of care. I reviewed the patient's care provided by the Advanced Practice Provider and agree with the diagnosis and treatment plan. Disposition Summary: 07/09/23 02:29 Discharge Ordered Notes: Location: Home cp Problem: an ongoing problem cp Symptoms: have improved cp Condition: Stable cp Diagnosis - Chest pain, unspecified cp Followup: cp - With: Private Physician - When: 1 - 2 days - Reason: Recheck today's complaints Discharge Instructions: - Discharge Summary Sheet cp - Nonspecific Chest Pain, Adult cp Forms: - Medication Reconciliation Form cp - Antibiotic Education cp - Prescription Opioid Use cp - Patient Portal Instructions cp - Leadership Thank You Letter cp Prescriptions: - Mobic 7.5 mg Oral Tablet - take 1 tablet ORAL route once daily take with food; 20 tablet; Refills: 0, cp Product Selection Permitted Signatures: Dispatcher [employer] EDMS Michael Nguyen PA PA cp Johnson, Juwairiyah RN RN jj7 Iheonunekwu, Sallie ornelas
[2023-07-09 03:15] VITALS: BP 115/80; TEMP 98.7; O2SAT 100
--- NOTE | 2023-07-09 14:23 | RAD REPORT ---
EXAM DESCRIPTION: RAD - Chest Single View - 07/08/2023 11:29 pm CLINICAL HISTORY: CHEST PAIN COMPARISON: Chest x-ray 05/21/2023 TECHNIQUE: Single AP view of the chest. FINDINGS: Lung volumes adequate. Cardiac silhouette is normal in size. No pneumothorax. No large pleural effusion. No focal consolidation. No acute bony finding. IMPRESSION: No evidence of acute cardiopulmonary disease. Electronically signed by: Constantin Giraldo MD 07/08/2023 11:40 PM CDT Due to temporary technical issues with the PACS/Fluency reporting system, reports are being signed by the in house radiologists without review as a courtesy to insure prompt reporting. The interpreting radiologist is fully responsible for the content of the report
== END 2023-07-09 02:48 | disposition home or self-care (01) ==
LOC: ER 22:38
DX: R07.9 Chest pain, unspecified (principal); I10 Essential (primary) hypertension; I25.2 Old myocardial infarction; F17.210 Nicotine dependence, cigarettes, uncomplicated; Z88.6 Allergy status to analgesic agent; Z91.013 Allergy to seafood; Z91.018 Allergy to other foods
CPT/HCPCS: 93005; 85025; 80048; 36415; 84484 ×2; 71045; J7613; J2800

== ENCOUNTER 2023-07-10 19:29 | Emergency (ER) | payer OTHER ==
[2023-07-10 19:55] LABS: Absolute Eosinophils 0.6 K/uL (0-0.5); Absolute Lymphocytes (CBC) 1.1 K/uL (0.7-4.9); Absolute Monocytes 0.3 K/uL (0.1-1.3); Absolute Neutrophil 1.7 K/uL (1.8-8.0); Basophils % 1.1 % (0-1.3); Eosinophils % 15.4 % (0-4.4); Hematocrit 30.3 % (36.0-45.0); Hemoglobin 10.4 g/dL (12.0-15.0); Lymphocytes % 30.9 % (15.3-44.8); MCH 32.9 pg (27.0-35.0); MCHC 34.4 g/dL (32.0-36.0); MCV 95.6 fL (80-100); MPV 6.4 fL (7.6-11.3); Monocytes % 7.1 % (3.3-12.3); Neutrophils % 45.5 % (41.7-73.7); Platelets 201 thou/uL (152-406); RBC Red Blood Cell Count 3.17 M/uL (3.86-4.86); Red Cell Distribution Width 14.9 % (12.1-15.2)
[2023-07-10 19:57] LABS: Blood Morphology Comment NOT SEEN (NOT SEEN); Platelet Estimate ADEQ; White Blood Cell Scan OK (OK)
[2023-07-10 20:17] LABS: Troponin High Sensitivity 25.5 pg/mL (<58.9)
[2023-07-10] MEDS ORDERED: NA CHLORIDE 0.9% 1,000 ML ONE (20:23)
--- NOTE | 2023-07-10 21:07 | RAD REPORT ---
EXAM DESCRIPTION: RADChest Single View07/10/2023 8:19 pm CLINICAL HISTORY: PAIN COMPARISON: Chest Single View dated 07/08/2023; Chest Single View dated 06/30/2023; Chest Single View dated 06/29/2023; Chest Single View dated 06/28/2023 TECHNIQUE: Portable AP view of the chest. FINDINGS: The lungs are clear. No pneumothorax or effusion. The cardiomediastinal contours are unre markable. IMPRESSION: No acute cardiopulmonary process.
--- NOTE | 2023-07-10 21:10 | ER ---
Nurse's Notes [facility] Name: Geetha Khan Age: 48 yrs Sex: Female : 1975 Arrival Date: 07/10/2023 Time: 19:29 Bed 15 Private MD: Diagnosis: Chest pain, unspecified Presentation: 07/09 19:31 Chief complaint: EMS states: chest pain, mid sternal, non radiating, 12/25, started rv morning today. denies sob. Coronavirus screen: At this time, the client does not indicate any symptoms associated with coronavirus-19. Ebola Screen: No symptoms or risks identified at this time. Initial Sepsis Screen: Does the patient meet any 2 criteria? No. Patient's initial sepsis screen is negative. Does the patient have a suspected source of infection? No. Patient's initial sepsis screen is negative. Risk Assessment: Do you want to hurt yourself or someone else? Patient reports no desire to harm self or others. Onset of symptoms was July 10, 2023. 19:31 Method Of Arrival: EMS: [facility] 19:31 Acuity: CORRINA 2 rv Triage Assessment: 19:32 General: Appears comfortable, Behavior is calm, cooperative. Pain: Complains of pain in rv chest. Neuro: Level of Consciousness is awake, alert, obeys commands, Oriented to person, place, time, situation. Cardiovascular: Capillary refill < 3 seconds Patient's skin is warm and dry. Cardiovascular: Chest pain is located in chest wall. Respiratory: Airway is patent Respiratory effort is even, unlabored. GI: No signs and/or symptoms were reported involving the gastrointestinal system. : No signs and/or symptoms were reported regarding the genitourinary system. Derm: Skin is intact. 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 - Infectious Disease History:: Denies. - Social history:: Smoking status: Patient reports the use of cigarette tobacco products, smokes one pack cigarettes per day. Screenin:33 [facility] ED Fall Risk Assessment (Adult) History of falling in the last 3 months, rv including since admission No falls in past 3 months (0 pts) Score/Fall Risk Level 0 - 2 = Low Risk Oriented to surroundings, Maintained a safe environment, Educated pt \T\ family on fall prevention, incl call for assistance when getting out of bed, Assessed \T\ reinforced patient's understanding of fall precautions. Abuse screen: Denies threats or abuse. Denies injuries from another. Nutritional screening: No deficits noted. Tuberculosis screening: No symptoms or risk factors identified. Assessment: 19:35 General: Appears in no apparent distress. comfortable, unkempt, Behavior is calm, jw7 cooperative, Smells of Cigarettes . Pain: Complains of pain in chest Pain does not radiate. Pain currently is 10 out of 10 on a pain scale. Quality of pain is described as sharp, stabbing, Pain began suddenly, Is continuous. Neuro: Level of Consciousness is awake, alert, obeys commands, Oriented to person, place, time, situation. Cardiovascular: Heart tones S1 S2 present Capillary refill < 3 seconds Clubbing of nail beds is absent JVD is absent Patient's skin is warm and dry. Rhythm is sinus rhythm. Respiratory: Airway is patent Trachea midline Respiratory effort is even, unlabored, Respiratory pattern is regular, symmetrical, Breath sounds are clear bilaterally. GI: Abdomen is round non-distended, Bowel sounds present X 4 quads. Abd is soft and non tender X 4 quads. : No deficits noted. No signs and/or symptoms were reported regarding the genitourinary system. EENT: No deficits noted. No signs and/or symptoms were reported regarding the EENT system. Derm: Skin is intact, is healthy with good turgor, Skin is dry, Skin is normal, Skin temperature is warm. Musculoskeletal: Circulation, motion, and sensation intact. Range of motion: intact in all extremities. 20:34 Reassessment: Patient appears in no apparent distress at this time. No changes from jw7 previously documented assessment. Patient and/or family updated on plan of care and expected duration. Pain level reassessed. Patient is alert, oriented x 3, equal unlabored respirations, skin warm/dry/pink. 21:24 Reassessment: Patient appears in no apparent distress at this time. Patient and/or jw7 family updated on plan of care and expected duration. Pain level reassessed. Patient is alert, oriented x 3, equal unlabored respirations, skin warm/dry/pink. Patient states feeling better. Patient states symptoms have improved. Vital Signs: 19:31 BP 133 / 93; Pulse 69; Resp 18; Temp 98; Pulse Ox 97% ; Weight 65.77 kg; rv 19:53 BP 136 / 90; Pulse 69; Resp 14 S; Pulse Ox 98% on R/A; jw7 20:30 BP 141 / 95; Pulse 69; Resp 20 S; Pulse Ox 97% on R/A; jw7 21:25 BP 132 / 87; Pulse 59; Resp 17 S; Pulse Ox 99% on R/A; jw7 ED Course: 19:30 Patient arrived in ED. jj6 19:30 [facility] kb 19:30 Michael Grimm MD is Attending Physician. kb 19:30 Lauren Nguyen, RN is Primary Nurse. jw7 19:32 Triage completed. rv 19:32 Arm band placed on right wrist. rv 19:33 Patient has correct armband on for positive identification. Client placed on continuous rv cardiac and pulse oximetry monitoring. NIBP monitoring applied. bus monitor on. 19:33 No provider procedures requiring assistance completed. rv 19:45 Provided Education on: Use of Call Light. jw7 19:50 Initial lab(s) drawn, by ED staff, sent to lab. EKG done, by ED staff, reviewed by hemal ENCINAS. Inserted saline lock: 22 gauge in right antecubital area, using aseptic technique. Blood collected. 20:13 Door closed. Noise minimized. Warm blanket given. Pillow given. jw7 20:21 XRAY Chest (1 view) In Process Unspecified. EDMS 21:25 IV discontinued, intact, bleeding controlled, No redness/swelling at site. Pressure jw7 dressing applied. Administered Medications: 20:28 Drug: NS 0.9% IV 1000 ml IV at 1000 ml once Route: IV; Rate: 1000 ml; Site: right jw7 antecubital; Medication: 21:25 VIS not applicable for this client. jw7 Outcome: 21:09 Discharge ordered by . kb 21:25 Discharged to home via wheelchair, with family, jw7 21:25 Condition: stable 21:25 Discharge instructions given to patient, Instructed on discharge instructions, follow up and referral plans. Demonstrated understanding of instructions, follow-up care, 21:27 Patient left the ED. jw7 Signatures: Dispatcher [employer] EDMS Kathy Kerns, WATER SUPERINTENDENT-C WATER SUPERINTENDENT-Ckb Cale Fernandes, RN RN Bia Garcia jj6 Lauren Nguyen RN RN jw7 Corrections: (The following items were deleted from the chart) 19:54 19:53 BP 136 / 90; Pulse 69bpm; Resp 14bpm; Spontaneous; Pulse Ox 99% RA; jw7 jw7 20:28 19:50 Inserted saline lock: 20 gauge in right antecubital area, using aseptic jw7 technique. Blood collected. jw7
--- NOTE | 2023-07-10 21:10 | EDPHYS ---
Physician Documentation [facility] Name: Geetha Khan Age: 48 yrs Sex: Female : 1975 Arrival Date: 07/10/2023 Time: 19:29 Bed 15 Private MD: ED Physician Michael Grimm HPI: 07/09 21:02 This 48 yrs old Female presents to ER via EMS with complaints of Chest pain. kb 21:02 Patient is a 48-year-old female who presents for chest pain to [facility] chest that is nonradiating that began this morning. Denies any other symptoms. Pain is similar to previous episodes of chest pain.. 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 - Infectious Disease History:: Denies. - Social history:: Smoking status: Patient reports the use of cigarette tobacco products, smokes one pack cigarettes per day. ROS: 21:02 Constitutional: As per HPI kb Exam: 21:02 Constitutional: This is a well developed, well nourished patient who is awake, alert, kb and in no acute distress. Head/Face: Normocephalic, atraumatic. ENT: Moist Mucous membranes Cardiovascular: Regular rate Respiratory: Respirations even and unlabored. No increased work of breathing. Talking in full sentences Abdomen/GI: Soft, non-tender. No distention Skin: Warm, dry with normal turgor. Normal color. MS/ Extremity: Pulses equal, no cyanosis. Neurovascular intact. Full, normal range of motion. 21:02 Neuro: Exam negative for acute changes, 21:05 ECG was reviewed by the Attending Physician. kb Vital Signs: 19:31 BP 133 / 93; Pulse 69; Resp 18; Temp 98; Pulse Ox 97% ; Weight 65.77 kg; rv 19:53 BP 136 / 90; Pulse 69; Resp 14 S; Pulse Ox 98% on R/A; jw7 20:30 BP 141 / 95; Pulse 69; Resp 20 S; Pulse Ox 97% on R/A; jw7 21:25 BP 132 / 87; Pulse 59; Resp 17 S; Pulse Ox 99% on R/A; jw7 MDM: 19:30 Patient medically screened. kb 21:04 Data reviewed: vital signs, nurses notes. Historians other than the Patient: EMS: [facility]. 21:08 Differential diagnosis: abnormal EKG, acute myocardial infarction, chest wall pain. kb Counseling: I had a detailed discussion with the patient and/or guardian regarding the historical points, exam findings, and any diagnostic results supporting the discharge/admit diagnosis, lab results, radiology results, the need for outpatient follow up, a family practitioner, to return to the emergency department if symptoms worsen or persist or if there are any questions or concerns that arise at home. 07/09 19:31 Order name: Basic Metabolic Panel; Complete Time: 20:18 kb 07/09 19:31 Order name: CBC with Diff; Complete Time: 20:00 kb 07/09 19:31 Order name: Troponin HS; Complete Time: 20:18 kb 07/09 19:57 Order name: CBC Smear Scan; Complete Time: 20:00 EDMS 07/09 19:31 Order name: XRAY Chest (1 view); Complete Time: 21:08 kb 07/09 19:31 Order name: Cardiac monitoring; Complete Time: 19:50 kb 07/09 19:31 Order name: EKG - Nurse/Tech; Complete Time: 19:50 kb 07/09 19:31 Order name: IV Saline Lock; Complete Time: 19:50 kb 07/09 19:31 Order name: Labs collected and sent; Complete Time: 19:50 kb 07/09 19:31 Order name: O2 Per Protocol; Complete Time: 19:39 kb 07/09 19:31 Order name: O2 Sat Monitoring; Complete Time: 19:39 kb EC:05 Rate is 64 beats/min. Rhythm is regular. QRS [place] is Normal. GA interval is prolonged kb at 218 msec. QRS interval is normal at 98 msec. QT interval is normal at 460 msec. Administered Medications: 20:28 Drug: NS 0.9% IV 1000 ml IV at 1000 ml once Route: IV; Rate: 1000 ml; Site: right jw7 antecubital; Disposition Summary: 07/10/23 21:09 Discharge Ordered Notes: Location: Home kb Condition: Stable kb Diagnosis - Chest pain, unspecified kb Followup: kb - With: Emergency Department - When: As needed - Reason: Worsening of condition Followup: kb - With: Private Physician - When: 2 - 3 days - Reason: Recheck today's complaints, Continuance of care, Re-evaluation by your physician Discharge Instructions: - Discharge Summary Sheet kb - Nonspecific Chest Pain, Adult, [id number] kb Forms: - Medication Reconciliation Form kb - Antibiotic Education kb - Prescription Opioid Use kb - Patient Portal Instructions kb - Leadership Thank You Letter kb Signatures: Dispatcher [employer] EDMS Kathy Kerns, SUPERVISOR WHITE SUGAR-C SUPERVISOR WHITE SUGAR-Cale Dodd, RN RN Lauren Nguyen RN RN jw7 Corrections: (The following items were deleted from the chart) 19:31 19:31 BASIC METABOLIC PANEL+C.LAB.BRZ ordered. EDMS EDMS 19:31 19:31 CBC+H.LAB.BRZ ordered. EDMS EDMS 19:31 19:31 Troponin High Sensitivity+C.LAB.BRZ ordered. EDMS EDMS 19:31 19:31 Chest Single View+RAD.RAD.BRZ ordered. EDMS EDMS
[2023-07-10 21:36] VITALS: TEMP 98
[2023-07-10 22:06] VITALS: BP 132/87; O2SAT 99
--- NOTE | 2023-07-11 16:43 | EKG ---
Test Date: 2023-07-10 Test Time: 19:45:46 Bleacher Pulp: ADRIÁN MEASUREMENT RESULTS: Intervals: Rate: 64 ID: [id number] QRSD: 98 QT: 446 QTc: 460 Willard: P: 55 ID: [id number] QRS: 19 T: 163 INTERPRETIVE STATEMENTS: Sinus rhythm with 1st degree AV block Left ventricular hypertrophy with repolarization abnormality Abnormal ECG Compared to ECG 07/08/2023 23:14:55 First degree AV block now present Electronically Signed On 07-11-23 16:41:38 CDT by Josse Olson
== END 2023-07-10 21:27 | disposition home or self-care (01) ==
LOC: ER 19:29
DX: R07.9 Chest pain, unspecified (principal); I10 Essential (primary) hypertension; F17.210 Nicotine dependence, cigarettes, uncomplicated; Z88.6 Allergy status to analgesic agent; Z91.013 Allergy to seafood; Z91.018 Allergy to other foods
CPT/HCPCS: 85025; 80048; 36415; 84484; 71045; J7030; 93005

== ENCOUNTER 2023-07-11 15:31 | Emergency (ER) | payer OTHER ==
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
[2023-07-11 16:40] VITALS: BP 135/93; TEMP 97.9; O2SAT 100
--- NOTE | 2023-07-15 13:09 | EKG ---
Test Date: 2023-07-11 Test Time: 15:57:54 Insulation Batting Machine Operator: CHARLINE MEASUREMENT RESULTS: Intervals: Rate: 61 [place]: 220 QRSD: 98 QT: 452 QTc: 455 [place]: P: 33 [place]: 220 QRS: -10 T: 144 INTERPRETIVE STATEMENTS: Sinus rhythm with 1st degree AV block Left ventricular hypertrophy with repolarization abnormality Abnormal ECG Compared to ECG 07/10/2023 19:45:46 No significant changes Electronically Signed On 07-15-23 12:59:08 CDT by Josse Olson
== END 2023-07-11 16:27 | disposition home or self-care (01) ==
LOC: ER 15:31
DX: Z76.5 Malingerer [conscious simulation] (principal); R07.9 Chest pain, unspecified; I10 Essential (primary) hypertension; J44.9 Chronic obstructive pulmonary disease, unspecified; Z72.0 Tobacco use; Z88.6 Allergy status to analgesic agent; Z91.013 Allergy to seafood; Z91.018 Allergy to other foods
CPT/HCPCS: 93005

== ENCOUNTER 2023-07-13 20:20 | Emergency (ER) | payer OTHER ==
[2023-07-13 20:55] LABS: Absolute Eosinophils 0.5 K/uL (0-0.5); Absolute Lymphocytes (CBC) 1.2 K/uL (0.7-4.9); Absolute Monocytes 0.3 K/uL (0.1-1.3); Absolute Neutrophil 1.7 K/uL (1.8-8.0); Basophils % 1.2 % (0-1.3); Eosinophils % 12.2 % (0-4.4); Hematocrit 28.2 % (36.0-45.0); Hemoglobin 9.8 g/dL (12.0-15.0); Lymphocytes % 32.3 % (15.3-44.8); MCH 33.5 pg (27.0-35.0); MCHC 34.9 g/dL (32.0-36.0); MPV 6.6 fL (7.6-11.3); Monocytes % 8.6 % (3.3-12.3); Neutrophils % 45.7 % (41.7-73.7); Nucleated Red Blood Cells % 0.2 % (0-0); Platelets 179 thou/uL (152-406); RBC Red Blood Cell Count 2.93 M/uL (3.86-4.86); Red Cell Distribution Width 15.6 % (12.1-15.2)
[2023-07-13 21:19] LABS: Anion Gap 7.4 mEq/L (5.0-15.0); Potassium 5.4 mEq/L (3.5-5.1)
--- NOTE | 2023-07-13 21:22 | RAD REPORT ---
EXAM DESCRIPTION: RAD - Chest Single View - 07/13/2023 9:16 pm CLINICAL HISTORY: CHEST PAIN Chest pain. COMPARISON: Chest Single View dated 07/10/2023; Chest Single View dated 07/08/2023; Chest Single View dated 06/30/2023; Chest Single View dated 06/29/2023 FINDINGS: Portable technique limits examination quality. The lungs are grossly clear. The heart is normal in size. No displaced fractures. IMPRESSION: No acute intrathoracic process suspected.
[2023-07-13] MEDS ORDERED: NA CHLORIDE 0.9% 500 ML ONE (21:25)
[2023-07-13] MEDS ORDERED: SOD POLYSTYREN SUL 15 GM/60 ML UCUP ONE (21:28)
[2023-07-13] MEDS ORDERED: CODEINE 30MG/APAP 300MG TAB ONE (21:29)
[2023-07-13] MEDS ORDERED: ONDANSETRON 4 MG/2 ML VIAL ONE (22:13)
--- NOTE | 2023-07-13 22:46 | ER ---
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 Pt describes the pain as a sharp shooting pain and is similar to the pain she has had before. Pt reports that she is out of her nitro. Coronavirus screen: Client denies travel out of the [place] in the last 14 days. At this time, the client does not indicate any symptoms associated with coronavirus-19. Ebola Screen: Patient denies travel to an Ebola-affected area in the 21 days before illness onset. No symptoms or risks identified at this time. Initial Sepsis Screen: Does the patient meet any 2 criteria? No. Patient's initial sepsis screen is negative. Does the patient have a suspected source of infection? No. Patient's initial sepsis screen is negative. Risk Assessment: Do you want to hurt yourself or someone else? Patient reports no desire to harm self or others. Onset of symptoms was July 13, 2023. 20:23 Method Of Arrival: EMS: [facility] 20:23 Acuity: CORRINA 2 cm10 Triage Assessment: 20:26 General: Appears in no apparent distress. comfortable, Behavior is calm, cooperative. cm10 Pain: Complains of pain in chest Pain radiates to anterior aspect of right upper chest Pain currently is 10 out of 10 on a pain scale. Quality of pain is described as sharp, stabbing, Pain began 30 min ago. Is continuous. Neuro: No deficits noted. Level of Consciousness is awake, alert, obeys commands, Oriented to person, place, time, situation. Cardiovascular: Patient's skin is warm and dry. Respiratory: No deficits noted. Airway is patent Respiratory effort is even, unlabored, Respiratory pattern is regular, symmetrical. 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 - Infectious Disease History:: Denies. - Social history:: Smoking status: Patient reports the use of cigarette tobacco products, unknown amount. Screenin:27 [facility] ED Fall Risk Assessment (Adult) History of falling in the last 3 months, cm10 including since admission Yes- single mechanical fall (1 pt) Confusion or Disorientation No (0 pts) Intoxicated or Sedated No (0 pts) Impaired Gait Yes (1 pt) Mobility Assist Device Used Yes (1 pt) Altered Elimination Yes (1 pt) Score/Fall Risk Level 3 or more points = High Risk Oriented to surroundings, Maintained a safe environment, Hourly rounding (assess needs \T\ fall precautionary measures) done, Used ambulatory aids as needed (educated on \T\ assisted with). Abuse screen: Denies threats or abuse. Denies injuries from another. Nutritional screening: No deficits noted. Tuberculosis screening: No symptoms or risk factors identified. Assessment: 20:53 Pain: Complains of pain in chest. Cardiovascular: Heart tones present. Respiratory: cm10 Breath sounds are clear bilaterally. 22:00 Reassessment: Patient appears in no apparent distress at this time. Patient and/or cm10 family updated on plan of care and expected duration. Pain level reassessed. Patient is alert, oriented x 3, equal unlabored respirations, skin warm/dry/pink. 22:10 Reassessment: Pt complaining of nausea, provider made aware. cm10 Vital Signs: 20:23 BP 128 / 81; Pulse 71; Resp 18; Temp 98.4(O); Pulse Ox 100% on R/A; Weight 65.77 kg; cm10 Height 5 ft. 2 in. ; Pain 10/10; 20:30 BP 115 / 74; Pulse 69; Resp 16; Pulse Ox 99% on R/A; cm10 21:30 BP 133 / 91; Pulse 72; Resp 16; Pulse Ox 100% on R/A; cm10 22:10 BP 108 / 95; Pulse 69; Resp 18; Pulse Ox 100% on R/A; cm10 23:00 BP 127 / 74; Pulse 63; Resp 16; Pulse Ox 100% ; cm10 20:23 Body Mass Index 26.52 (65.77 kg, 157.48 cm) cm10 20:23 Pain Scale: Adult cm10 Vitals: 21:30 Cardiac Rhythm Assessment Regular. cm10 ED Course: 20:23 Patient arrived in ED. cm10 20:25 Triage completed. cm10 20:26 Kathy Kerns FNP-C is PHCP. kb 20:26 Michael Grimm MD is Attending Physician. kb 20:27 Arm band placed on Patient placed in an exam room, on a stretcher, on monitoring tech, cm10 on pulse oximetry. 20:27 Patient has correct armband on for positive identification. Bed in low position. Call cm10 light in reach. Side rails up X2. Provided Education on: ER process and procedures. Client placed on continuous cardiac and pulse oximetry monitoring. NIBP monitoring applied. monitor car operator on. 20:41 Kelsey Khan, RN is Primary Nurse. cm10 20:53 Basic Metabolic Panel Sent. cm10 20:53 CBC with Diff Sent. cm10 20:53 Troponin HS Sent. cm10 21:18 XRAY Chest (1 view) In Process Unspecified. EDMS 23:13 No provider procedures requiring assistance completed. IV discontinued, intact, cm10 bleeding controlled, No redness/swelling at site. Pressure dressing applied. O2 via Room air. Administered Medications: 21:38 Drug: NS 0.9% IV 500 ml IV at bolus once Route: IV; Rate: bolus; Site: right cm10 antecubital; 23:13 Follow up: Response: No adverse reaction; IV Status: Completed infusion; IV Intake: cm10 250ml 21:38 Drug: Kayexalate PO 45 grams PO once Route: PO; cm10 22:18 Follow up: Response: No adverse reaction cm10 21:38 Drug: Acetaminophen-Codeine PO (300 mg-30 mg) 1 tablet PO once; RASS on ADMIN: Combtv4, cm10 Very Agttd3, Agttd2, Rstlss1, AlertClm0, Drwsy-1, Lt Sdtn-2, Mod Sdtn-3, Dp Sdtn-4, UnArsble-5 Route: PO; 22:18 Follow up: Response: No adverse reaction cm10 22:18 Drug: Ondansetron IVP 4 mg IVP once; over 2 minutes Route: IVP; Site: right antecubital;cm10 23:13 Follow up: Response: No adverse reaction cm10 Medication: 20:27 VIS not applicable for this client. cm10 Intake: 23:13 IV: 250ml; Total: 250ml. cm10 Outcome: 22:46 Discharge ordered by MD. lozano 23:13 Discharged to home via wheelchair, with significant other, cm10 23:13 Condition: good 23:13 Discharge instructions given to patient, Instructed on discharge instructions, follow up and referral plans. Demonstrated understanding of instructions, follow-up care, 23:14 Patient left the ED. cm10 Signatures: Dispatcher [employer] EDMS Kathy Kerns, LC-C LC-Kelsey Rojas, RN RN cm10 Corrections: (The following items were deleted from the chart) 20:29 20:23 BP 128 / 81; Pulse 71bpm; Resp 18bpm; Pulse Ox 100% RA; 65.77 kg; Height 5 ft. 2 cm10 in.; BMI: 26.5; Pain 10/10, Adult; cm10
--- NOTE | 2023-07-13 22:46 | EDPHYS ---
Physician Documentation [facility] Name: Geetha Khan Age: 48 yrs Sex: Female : 1975 Arrival Date: 07/13/2023 Time: 20:20 Bed 8 Private MD: ED Physician Michael Grimm HPI: 07/12 22:21 This 48 yrs old Female presents to ER via EMS with complaints of Chest Pain. kb 22:21 Pt is a 48 year old female who presents for chest pain that started 30 minutes prior to kb arrival and right shoulder pain that started after a fall weeks ago. Denies shortness of breath or fever. . 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 - Infectious Disease History:: Denies. - Social history:: Smoking status: Patient reports the use of cigarette tobacco products, unknown amount. ROS: 22:21 Constitutional: As per HPI kb Exam: 22:21 Constitutional: This is a well developed, well nourished patient who is awake, alert, kb and in no acute distress. Head/Face: Normocephalic, atraumatic. ENT: Moist Mucous membranes Cardiovascular: Regular rate Respiratory: Respirations even and unlabored. No increased work of breathing. Talking in full sentences Abdomen/GI: Soft, non-tender. No distention Skin: Warm, dry with normal turgor. Normal color. 22:21 Musculoskeletal/extremity: Exam is negative for acute changes, 22:21 Neuro: Exam negative for acute changes, Vital Signs: 20:23 BP 128 / 81; Pulse 71; Resp 18; Temp 98.4(O); Pulse Ox 100% on R/A; Weight 65.77 kg; cm10 Height 5 ft. 2 in. ; Pain 10/10; 20:30 BP 115 / 74; Pulse 69; Resp 16; Pulse Ox 99% on R/A; cm10 21:30 BP 133 / 91; Pulse 72; Resp 16; Pulse Ox 100% on R/A; cm10 22:10 BP 108 / 95; Pulse 69; Resp 18; Pulse Ox 100% on R/A; cm10 23:00 BP 127 / 74; Pulse 63; Resp 16; Pulse Ox 100% ; cm10 20:23 Body Mass Index 26.52 (65.77 kg, 157.48 cm) cm10 20:23 Pain Scale: Adult cm10 MDM: 20:26 Patient medically screened. kb 22:23 Data reviewed: vital signs, nurses notes. kb 22:23 Differential diagnosis: abnormal EKG, acute myocardial infarction, anxiety, coronary kb artery disease chest wall pain. Historians other than the Patient: EMS: [facility]. 22:23 Consideration of Admission/Observation Escalation of care including kb admission/observation considered. admission considered, but pain is similar to previous episodes.. Counseling: I had a detailed discussion with the patient and/or guardian regarding the historical points, exam findings, and any diagnostic results supporting the discharge/admit diagnosis, lab results, radiology results, the need for outpatient follow up, a family practitioner, to return to the emergency department if symptoms worsen or persist or if there are any questions or concerns that arise at home. 22:46 ED course: Pt states she is ready to go home. Would like to be discharged. kb 07/12 20:26 Order name: Basic Metabolic Panel; Complete Time: 21:19 kb 07/12 20:26 Order name: CBC with Diff; Complete Time: 21:17 kb 07/12 20:26 Order name: Troponin HS; Complete Time: 21:19 kb 07/12 20:26 Order name: XRAY Chest (1 view); Complete Time: 21:26 kb 07/12 20:26 Order name: Cardiac monitoring; Complete Time: 20:34 kb 07/12 20:26 Order name: EKG - Nurse/Tech; Complete Time: 20:34 kb 07/12 20:26 Order name: IV Saline Lock; Complete Time: 20:53 kb 07/12 20:26 Order name: Labs collected and sent; Complete Time: 20:53 kb 07/12 20:26 Order name: O2 Per Protocol; Complete Time: 20:34 kb 07/12 20:26 Order name: O2 Sat Monitoring; Complete Time: 20:34 kb Administered Medications: 21:38 Drug: NS 0.9% IV 500 ml IV at bolus once Route: IV; Rate: bolus; Site: right cm10 antecubital; 23:13 Follow up: Response: No adverse reaction; IV Status: Completed infusion; IV Intake: cm10 250ml 21:38 Drug: Kayexalate PO 45 grams PO once Route: PO; cm10 22:18 Follow up: Response: No adverse reaction cm10 21:38 Drug: Acetaminophen-Codeine PO (300 mg-30 mg) 1 tablet PO once; RASS on ADMIN: Combtv4, cm10 Very Agttd3, Agttd2, Rstlss1, AlertClm0, Drwsy-1, Lt Sdtn-2, Mod Sdtn-3, Dp Sdtn-4, UnArsble-5 Route: PO; 22:18 Follow up: Response: No adverse reaction cm10 22:18 Drug: Ondansetron IVP 4 mg IVP once; over 2 minutes Route: IVP; Site: right antecubital;cm10 23:13 Follow up: Response: No adverse reaction cm10 Disposition Summary: 07/13/23 22:46 Discharge Ordered Notes: Location: Home kb Condition: Stable kb Diagnosis - Chest pain, unspecified kb - Hyperkalemia kb Followup: kb - With: Emergency Department - When: As needed - Reason: Worsening of condition Followup: kb - With: Private Physician - When: 2 - 3 days - Reason: Recheck today's complaints, Continuance of care, Re-evaluation by your physician Discharge Instructions: - Discharge Summary Sheet kb - Hyperkalemia, Cnxp-vc-Qidi kb - Nonspecific Chest Pain, Adult, Hnne-py-Epzk kb Forms: - Medication Reconciliation Form kb - Antibiotic Education kb - Prescription Opioid Use kb - Patient Portal Instructions kb - Leadership Thank You Letter kb Addendum: 07/16/2023 22:02 Co-signature as Attending Physician, Michael Grimm MD I agree with the assessment and c call plan of care. Signatures: Dispatcher [employer] Kathy Hines, PIZZA DRIVER-C PIZZA DRIVER-Michael May MD MD cha Martinez, Clarissa, RN RN cm10 Corrections: (The following items were deleted from the chart) 07/12 20:26 20:26 BASIC METABOLIC PANEL+C.LAB.BRZ ordered. EDMN ED 20: CBC+H.LAB.BRZ ordered. EDMS EDMS 20: Troponin High Sensitivity+C.LAB.BRZ ordered. EDMS EDMS 20: Chest Single View+RAD.RAD.BRZ ordered. EDMS EDMS
[2023-07-13 23:23] VITALS: BP 127/74; TEMP 98.4; O2SAT 100
--- NOTE | 2023-07-15 13:00 | EKG ---
Test Date: 2023-07-13 Test Time: 20:30:26 Carbonation Equipment Operator: MARISSA MEASUREMENT RESULTS: Intervals: Rate: 67 [place]: 216 QRSD: 98 QT: 426 QTc: 450 [place]: P: 55 NV: 216 QRS: 24 T: 163 INTERPRETIVE STATEMENTS: Sinus rhythm with 1st degree AV block Left ventricular hypertrophy with repolarization abnormality Abnormal ECG Compared to ECG 07/11/2023 15:57:54 No significant changes Electronically Signed On 07-15-23 12:55:38 CDT by Josse Olson
== END 2023-07-13 23:14 | disposition home or self-care (01) ==
LOC: ER 20:20
DX: R07.9 Chest pain, unspecified (principal); E87.5 Hyperkalemia; F17.210 Nicotine dependence, cigarettes, uncomplicated; Z88.6 Allergy status to analgesic agent; Z91.013 Allergy to seafood; Z91.018 Allergy to other foods
CPT/HCPCS: 93005; 85025; 80048; 36415; 84484; 71045; J2405; J7040

== ENCOUNTER 2023-07-14 23:10 | Emergency (ER) | payer OTHER ==
[2023-07-15] MEDS ORDERED: HYDROCODONE/APAP 7.5/325 MG TAB ONE (01:11)
[2023-07-15 01:28] LABS: Absolute Eosinophils 0.4 K/uL (0-0.5); Absolute Lymphocytes (CBC) 0.9 K/uL (0.7-4.9); Absolute Monocytes 0.2 K/uL (0.1-1.3); Basophils % 0.9 % (0-1.3); Eosinophils % 11.4 % (0-4.4); Hematocrit 27.2 % (36.0-45.0); Hemoglobin 9.3 g/dL (12.0-15.0); Lymphocytes % 25.9 % (15.3-44.8); MCH 33.1 pg (27.0-35.0); MCHC 34.3 g/dL (32.0-36.0); MCV 96.3 fL (80-100); MPV 6.8 fL (7.6-11.3); Monocytes % 6.3 % (3.3-12.3); Neutrophils % 55.5 % (41.7-73.7); Nucleated Red Blood Cells % 0.1 % (0-0); Platelets 174 thou/uL (152-406); RBC Red Blood Cell Count 2.82 M/uL (3.86-4.86); Red Cell Distribution Width 15.4 % (12.1-15.2)
[2023-07-15 01:40] LABS: Anion Gap 7.4 mEq/L (5.0-15.0); Potassium 4.4 mEq/L (3.5-5.1); Troponin High Sensitivity 24.3 pg/mL (<58.9)
--- NOTE | 2023-07-15 01:43 | ER ---
Nurse's Notes [facility] Name: Geetha Khan Age: 48 yrs Sex: Female : 1975 Arrival Date: 07/14/2023 Time: 23:10 Bed 8 Private MD: Diagnosis: Chest pain, unspecified;Chronic pain, not elsewhere classified Presentation: 07/13 23:40 Chief complaint: Patient states: I am trying to move to [place]. We are trying to sell jb4 the house. I want my sister out of the house, but I don't want her to know or go off on me. We got into an argument tonight and now I am having chest pain. Coronavirus screen: At this time, the client does not indicate any symptoms associated with coronavirus-19. Ebola Screen: No symptoms or risks identified at this time. Initial Sepsis Screen: Does the patient meet any 2 criteria? No. Patient's initial sepsis screen is negative. Does the patient have a suspected source of infection? No. Patient's initial sepsis screen is negative. Risk Assessment: Do you want to hurt yourself or someone else? Patient reports no desire to harm self or others. Onset of symptoms was July 14, 2023. Transition of care: patient was not received from another setting of care. 23:40 Method Of Arrival: EMS: [facility] jb4 23:40 Acuity: CORRINA 2 jb4 Historical: - Allergies: 23:40 Aspirin; jb4 23:40 CRANBERRY; jb4 23:40 FISH PRODUCT DERIVATIVES; jb4 23:40 GRAPEFRUIT; jb4 23:40 mushrooms; jb4 - PMHx: 23:40 Asthma; Cerebrovascular accident; COPD; Hypertension; Left arm paralysis and left leg jb4 weakness from previous CVA; Myocardial infarction; Seizures; Thyroid problem; - Immunization history:: Adult Immunizations up to date. - Infectious Disease History:: Denies. - Social history:: Smoking status: Patient denies any tobacco usage or history of. Screenin/29 02:01 [facility] ED Fall Risk Assessment (Adult) History of falling in the last 3 months, jb4 including since admission No falls in past 3 months (0 pts) Confusion or Disorientation No (0 pts) Intoxicated or Sedated No (0 pts) Impaired Gait No (0 pts) Mobility Assist Device Used No (0 pt) Altered Elimination No (0 pt) Score/Fall Risk Level 0 - 2 = Low Risk Oriented to surroundings, Maintained a safe environment. Abuse screen: Denies threats or abuse. Nutritional screening: No deficits noted. Tuberculosis screening: No symptoms or risk factors identified. Assessment: 07/13 23:40 General: Appears in no apparent distress. comfortable, Behavior is calm, cooperative, jb4 appropriate for age. Pain: Complains of pain in chest Pain does not radiate. Pain currently is 10 out of 10 on a pain scale. Neuro: Level of Consciousness is awake, alert, obeys commands, Oriented to person, place, time, situation. Cardiovascular: Patient's skin is warm and dry. Respiratory: Airway is patent Respiratory effort is even, unlabored, Respiratory pattern is regular, symmetrical. Derm: Skin is intact, Skin is pink, warm \T\ dry. Musculoskeletal: Circulation, motion, and sensation intact. Range of motion:. 07/14 00:49 Reassessment: Patient appears in no apparent distress at this time. Patient and/or jb4 family updated on plan of care and expected duration. Pain level reassessed. Patient is alert, oriented x 3, equal unlabored respirations, skin warm/dry/pink. 02:01 Reassessment: Patient appears in no apparent distress at this time. Patient and/or jb4 family updated on plan of care and expected duration. Pain level reassessed. Patient is alert, oriented x 3, equal unlabored respirations, skin warm/dry/pink. offered brief change for pt, pt refused. Vital Signs: 07/13 23:40 BP 127 / 91; Pulse 66; Resp 16; Temp 98.1(O); Pulse Ox 95% on R/A; Weight 65.77 kg (R); jb4 Height 5 ft. 3 in. ; 07/14 00:49 BP 139 / 91; Pulse 69; Resp 16; Pulse Ox 97% on R/A; jb4 02:01 BP 155 / 94; Pulse 67; Resp 16; Pulse Ox 98% on R/A; jb4 07/13 23:40 Body Mass Index 25.69 (65.77 kg, 160.02 cm) [facility] ED Course: 07/13 23:18 Patient arrived in ED. ty 23:20 Michael Nguyen PA is PHCP. cp 23:20 Uriel Cannon MD is Attending Physician. cp 23:40 Arm band placed on. jb4 23:44 Triage completed. jb4 07/14 00:19 BMP Sent. jb4 00:19 CBC with Diff Sent. jb4 00:19 Troponin High Sensitivity Sent. jb4 00:19 Initial lab(s) drawn, by me, sent to lab. Inserted saline lock: 18 gauge in right jb4 antecubital area, using aseptic technique. Blood collected. 00:44 Jaziel Storm, RN is Primary Nurse. jb4 02:01 No provider procedures requiring assistance completed. IV discontinued, intact, jb4 bleeding controlled, No redness/swelling at site. Pressure dressing applied. 02:01 Patient has correct armband on for positive identification. Bed in low position. Call jb4 light in reach. Side rails up X 1. Provided Education on: discharge instructions.. Administered Medications: 01:12 Drug: Hydrocodone-Acetaminophen PO (7.5 mg-325 mg) 1 tabs PO once; RASS on ADMIN: jb4 Combtv4, Very Agttd3, Agttd2, Rstlss1, AlertClm0, Drwsy-1, Lt Sdtn-2, Mod Sdtn-3, Dp Sdtn-4, UnArsble-5 Route: PO; Medication: 02:01 VIS not applicable for this client. jb4 Outcome: 01:42 Discharge ordered by . cp 02:01 Discharged to home via wheelchair, with family, jb4 02:01 Condition: stable 02:01 Discharge instructions given to patient, Instructed on discharge instructions, follow up and referral plans. Demonstrated understanding of instructions, follow-up care, 02:03 Patient left the ED. jb4 Signatures: Michael Nguyen PA PA cp Jaziel Storm, RN RN jb4 [employer] Corrections: (The following items were deleted from the chart) 02:02 02:01 Reassessment: Patient appears in no apparent distress at this time. Patient jb4 and/or family updated on plan of care and expected duration. Pain level reassessed. Patient is alert, oriented x 3, equal unlabored respirations, skin warm/dry/pink. jb4
--- NOTE | 2023-07-15 01:43 | EDPHYS ---
Physician Documentation [facility] Name: Geetha Khan Age: 48 yrs Sex: Female : 1975 Arrival Date: 07/14/2023 Time: 23:10 Bed 8 Private MD: ED Physician Uriel Cannon HPI: 07/13 23:35 This 48 yrs old Female presents to ER via EMS with complaints of Chest Pain. cp 23:35 The patient or guardian reports chest pain that is located primarily in the substernal cp area. 23:35 Onset: 1 hour(s) ago, after verbal argument with sister. The pain does not radiate. cp 23:35 Associated signs and symptoms: Pertinent negatives: abdominal pain, cough, headache, cp fever. 23:35 Duration: The patient or guardian reports a single episode, that is still ongoing, and cp unchanged. Historical: - Allergies: 23:40 Aspirin; jb4 23:40 CRANBERRY; jb4 23:40 FISH PRODUCT DERIVATIVES; jb4 23:40 GRAPEFRUIT; jb4 23:40 mushrooms; jb4 - PMHx: 23:40 Asthma; Cerebrovascular accident; COPD; Hypertension; Left arm paralysis and left leg jb4 weakness from previous CVA; Myocardial infarction; Seizures; Thyroid problem; - Immunization history:: Adult Immunizations up to date. - Infectious Disease History:: Denies. - Social history:: Smoking status: Patient denies any tobacco usage or history of. ROS: 23:40 Constitutional: Negative for body aches, chills, fever, poor PO intake, cp 23:40 Eyes: Negative for injury, pain, redness, and discharge, cp 23:40 Cardiovascular: Positive for chest pain, Negative for palpitations, 23:40 Respiratory: Negative for cough, shortness of breath, wheezing, 23:40 Abdomen/GI: Negative for abdominal pain, vomiting, diarrhea, constipation, anorexia, 23:40 Back: Negative for pain at rest, pain with movement, cp 23:40 Skin: Negative for rash, 23:40 Neuro: Negative for altered mental status, dizziness, headache, weakness, cp 23:40 All other systems are negative, Exam: 23:45 Constitutional: The patient appears in no acute distress, alert, awake, cp non-diaphoretic, non-toxic, well developed, well nourished, 23:45 Head/Face: Normocephalic, atraumatic. cp 23:45 Eyes: Periorbital structures: appear normal, Conjunctiva: normal, no exudate, no injection, Sclera: no appreciated abnormality, Lids and lashes: appear normal, bilaterally, 23:45 ENT: External ear(s): are unremarkable, Nose: is normal, Mouth: Lips: moist, Oral mucosa: pink and intact, moist, Posterior pharynx: Airway: no evidence of obstruction, patent, 23:45 Chest/axilla: Inspection: normal, 23:45 Cardiovascular: Rate: normal, Rhythm: regular, 23:45 Respiratory: the patient does not display signs of respiratory distress, Respirations: normal, no use of accessory muscles, no retractions, labored breathing, is not present, Breath sounds: are clear throughout, no decreased breath sounds, no stridor, no wheezing, 23:45 Abdomen/GI: Inspection: abdomen appears normal, Palpation: abdomen is soft and non-tender, in all quadrants, 23:45 Back: pain, is absent, ROM is normal, 23:45 Neuro: Orientation: to person, place \T\ time. Mentation: able to follow commands, Motor: no acute changes, Sensation: no acute changes, 07/14 00:33 ECG was reviewed by the Attending Physician. cp Vital Signs: 07/13 23:40 BP 127 / 91; Pulse 66; Resp 16; Temp 98.1(O); Pulse Ox 95% on R/A; Weight 65.77 kg (R); jb4 Height 5 ft. 3 in. ; 07/14 00:49 BP 139 / 91; Pulse 69; Resp 16; Pulse Ox 97% on R/A; jb4 02:01 BP 155 / 94; Pulse 67; Resp 16; Pulse Ox 98% on R/A; jb4 07/13 23:40 Body Mass Index 25.69 (65.77 kg, 160.02 cm) jb4 MDM: 07/13 23:20 Patient medically screened. cp 07/14 01:42 The patient was not given aspirin in the Emergency Department. Not indicated due to cp patient's past medical history. 01:42 Data reviewed: vital signs, nurses notes, lab test result(s), EKG, and as a result, I cp will discharge patient. I considered the following discharge prescriptions or medication management in the emergency department Medications were administered in the Emergency Department. See MAR. Counseling: I had a detailed discussion with the patient and/or guardian regarding the historical points, exam findings, and any diagnostic results supporting the discharge/admit diagnosis, lab results, to return to the emergency department if symptoms worsen or persist or if there are any questions or concerns that arise at home. Special discussion: Based on the patient's history, exam, and Dx evaluation, there is no indication for emergent intervention or inpatient Tx. It is understood by the patient/guardian that if the Sx's persist or worsen they need to return immediately for re-evaluation. 07/13 23: Order name: Troponin High Sensitivity; Complete Time: cp 07/14 01: Interpretation: Reviewed. cp 07/13 23:31 Order name: CBC with Diff; Complete Time: cp 07/14 00:41 Interpretation: Normal except: WBC 3.60; RBC 2.82; HGB 9.3; HCT 27.2; RDW 15.4; cp EOSINOPHIL % 11.4. 07/13 23:31 Order name: BMP; Complete Time: cp 07/14 00:41 Interpretation: Normal except: NA 131; BUN 24; CRE 1.56; GFR 41. cp 07/13 23:31 Order name: EKG; Complete Time: 23:32 cp 07/13 23:31 Order name: EKG - Nurse/Tech; Complete Time: 00:44 cp 07/13 23:31 Order name: IV; Complete Time: 00:19 cp EC:33 Rate is 64 beats/min. Rhythm is regular. MI interval is prolonged at 218 msec. QRS cp interval is normal. QT interval is normal. T waves are Inverted in leads I, II, aVL, V5, V6. Interpreted by me. Reviewed by me. Administered Medications: 01:12 Drug: Hydrocodone-Acetaminophen PO (7.5 mg-325 mg) 1 tabs PO once; RASS on ADMIN: jb4 Combtv4, Very Agttd3, Agttd2, Rstlss1, AlertClm0, Drwsy-1, Lt Sdtn-2, Mod Sdtn-3, Dp Sdtn-4, UnArsble-5 Route: PO; Disposition: 21:52 Co-signature as Attending Physician, Uriel Cannon MD I agree with the assessment sp4 and plan of care. I reviewed the patient's care provided by Advanced Practice Provider \T\ agree w/ the diagnosis \T\ care plan. I personally saw the pt \T\ performed a substantive portion of the visit, incldng all aspects of the (History/Exam/Medical Decision Making). Disposition Summary: 07/15/23 01:42 Discharge Ordered Notes: Location: Home cp Problem: an ongoing problem cp Symptoms: have improved cp Condition: Stable cp Diagnosis - Chest pain, unspecified cp - Chronic pain, not elsewhere classified cp Followup: cp - With: Private Physician - When: 1 - 2 days - Reason: Recheck today's complaints Discharge Instructions: - Discharge Summary Sheet cp - Nonspecific Chest Pain, Adult cp - Chronic Pain, Adult cp Forms: - Medication Reconciliation Form cp - Antibiotic Education cp - Prescription Opioid Use cp - Patient Portal Instructions cp - Leadership Thank You Letter cp Signatures: Dispatcher [employer] EDMichael Banegas PA PA cp Jaziel Storm, YANETH RN jb4 Uriel Cannon MD MD sp4
[2023-07-15 02:11] VITALS: BP 155/94; TEMP 98.1; O2SAT 98
--- NOTE | 2023-07-15 12:55 | EKG ---
Test Date: 2023-07-15 Test Time: 00:26:34 Cvt Tech: NAOMY MEASUREMENT RESULTS: Intervals: Rate: 64 AL: 218 QRSD: 94 QT: 440 QTc: 453 [place]: P: 54 AL: 218 QRS: 11 T: 152 INTERPRETIVE STATEMENTS: Sinus rhythm with 1st degree AV block Left ventricular hypertrophy with repolarization abnormality Abnormal ECG Compared to ECG 07/13/2023 20:30:26 No significant changes Electronically Signed On 07-15-23 12:54:37 CDT by Josse Olson
== END 2023-07-15 02:03 | disposition home or self-care (01) ==
LOC: ER 23:10
DX: R07.9 Chest pain, unspecified (principal); G89.29 Other chronic pain; I10 Essential (primary) hypertension; Z88.6 Allergy status to analgesic agent; Z91.013 Allergy to seafood; Z91.018 Allergy to other foods
CPT/HCPCS: 36415; 80048; 84484; 85025; 93005; 99284

== ENCOUNTER 2023-07-15 19:53 | Emergency (ER) | payer OTHER ==
--- NOTE | 2023-07-15 21:16 | ER ---
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 Coronavirus screen: At this time, vc1 the client does not indicate any symptoms associated with coronavirus-19. Ebola Screen: Patient negative for fever greater than or equal to 101.5 degrees Fahrenheit, and additional compatible Ebola Virus Disease symptoms Patient denies exposure to infectious person. Patient denies travel to an Ebola-affected area in the 21 days before illness onset. No symptoms or risks identified at this time. Initial Sepsis Screen: Does the patient meet any 2 criteria? No. Patient's initial sepsis screen is negative. Does the patient have a suspected source of infection? No. Patient's initial sepsis screen is negative. Risk Assessment: Do you want to hurt yourself or someone else? Patient reports no desire to harm self or others. Onset of symptoms was July 15, 2023. 20:05 Method Of Arrival: EMS: [facility] vc1 20:05 Acuity: CORRINA 3 vc1 Triage Assessment: 21:42 General: Appears in no apparent distress. comfortable, Behavior is calm, cooperative, vc1 appropriate for age. Pain: Complains of pain in mid-sternal area Pain does not radiate. Pain currently is 10 out of 10 on a pain scale. Quality of pain is described as sharp, Pain began suddenly, 1 hour ago. Is continuous. EENT: No deficits noted. No signs and/or symptoms were reported regarding the EENT system. Neuro: Level of Consciousness is awake, alert, obeys commands, Oriented to person, place, time, situation, Appropriate for age. Neuro: Paralysis in left in bilateral arm(s) leg(s) Reports. Cardiovascular: Rhythm is regular. Cardiovascular: Heart tones S1 S2. Respiratory: Airway is patent Respiratory effort is even, unlabored, Respiratory pattern is regular, symmetrical. Respiratory: Breath sounds are diminished bilaterally. GI: No deficits noted. No signs and/or symptoms were reported involving the gastrointestinal system. : No deficits noted. No signs and/or symptoms were reported regarding the genitourinary system. Derm: Skin is purple to left foot, pts normal. Musculoskeletal: Range of motion: limited in left shoulder, left elbow, left wrist, left hip, left knee and left ankle. 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 - Infectious Disease History:: Denies. - Social history:: Smoking status: Patient reports the use of cigarette tobacco products, smokes one-half pack cigarettes per day. - Family history:: not pertinent. Screenin:15 [facility] ED Fall Risk Assessment (Adult) History of falling in the last 3 months, vc1 including since admission Yes- fall prone (multiple falls) (3 pts) Confusion or Disorientation No (0 pts) Intoxicated or Sedated Impaired Gait Yes (1 pt) Mobility Assist Device Used No (0 pt) Altered Elimination No (0 pt) Score/Fall Risk Level 3 or more points = High Risk Oriented to surroundings, Maintained a safe environment, Educated pt \T\ family on fall prevention, incl call for assistance when getting out of bed. Abuse screen: Denies threats or abuse. Nutritional screening: No deficits noted. Tuberculosis screening: No symptoms or risk factors identified. Assessment: 21:45 Reassessment: see triage assessment. Pain: Complains of pain in chest. vc1 Vital Signs: 20:05 BP 126 / 87; Pulse 66; Resp 16; Temp 97.9; Pulse Ox 99% ; Weight 68.04 kg; Height 5 ft. vc1 2 in. ; Pain 10/10; 20:05 Body Mass Index 27.44 (68.04 kg, 157.48 cm) vc1 20:05 Pain Scale: Adult vc1 ED Course: 19:55 Patient arrived in ED. jj6 20:05 Uriel Cannon MD is Attending Physician. sp4 20:07 Triage completed. vc1 20:07 Arm band placed on right wrist. vc1 21:15 Josse Olson MD is Referral Physician. sp4 21:46 Patient has correct armband on for positive identification. Provided Education on: vc1 follow up with cardiology. seen in triage. 21:46 No provider procedures requiring assistance completed. Patient did not have IV access vc1 during this emergency room visit. Administered Medications: No medications were administered Medication: 21:46 VIS not applicable for this client. vc1 Outcome: 21:15 Discharge ordered by . sp4 21:46 Discharged to home via wheelchair, vc1 21:46 Condition: good 21:46 Discharge instructions given to patient, Instructed on discharge instructions, follow up and referral plans. Demonstrated understanding of instructions, follow-up care, 21:47 Patient left the ED. vc1 Signatures: Bia [email or web address] Syeda Bruce RN RN vc1 Uriel Cannon MD MD sp4
--- NOTE | 2023-07-15 21:16 | EDPHYS ---
Physician Documentation [facility] Name: Geetha Khan Age: 48 yrs Sex: Female : 1975 Arrival Date: 07/15/2023 Time: 19:53 Bed IW2 Private MD: ED Physician Uriel Cannon HPI: 07/14 20:05 This 48 yrs old Female presents to ER via Unassigned with complaints of Chest sp4 Pain. 21:17 48-year-old female presents with complaint of chest pain. Patient has history of sp4 hemorrhagic CVA with left-sided hemiparesis. Patient was here yesterday for the same complaint had a full cardiac workup which was found to be unremarkable. . 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 - Infectious Disease History:: Denies. - Social history:: Smoking status: Patient reports the use of cigarette tobacco products, smokes one-half pack cigarettes per day. - Family history:: not pertinent. ROS: 21:17 Constitutional: Negative for fever, chills, and weight loss, positive for chest pain sp4 21:17 All other systems are negative, Exam: 21:17 Constitutional: This is a well developed, well nourished patient who is awake, alert, sp4 and in no acute distress. Patient has longstanding left-sided hemiparesis Head/Face: Normocephalic, atraumatic. Eyes: Pupils equal round and reactive to light, extra-ocular motions intact. Lids and lashes normal. Conjunctiva and sclera are not injected. Cornea within normal limits. Periorbital areas with no swelling, redness, or edema. ENT: Nares patent. No nasal discharge, no septal abnormalities noted. Tympanic membranes are normal and external auditory canals are clear. Oropharynx with no redness, swelling, or masses, exudates, or evidence of obstruction, uvula midline. Mucous membranes moist. Neck: Trachea midline, no thyromegaly or masses palpated, and no cervical lymphadenopathy. Supple, full range of motion without nuchal rigidity, or vertebral point tenderness. Chest/axilla: Normal chest wall appearance and motion. Nontender with no deformity. No lesions are appreciated. Cardiovascular: Regular rate and rhythm with a normal S1 and S2. No gallops, murmurs, or rubs. Normal PMI, no JVD. No pulse deficits. Respiratory: Lungs have equal breath sounds bilaterally, clear to auscultation and percussion. No rales, rhonchi or wheezes noted. No increased work of breathing, no retractions or nasal flaring. Abdomen/GI: Soft, with normal bowel sounds. No distension or tympany. No guarding or rebound. No evidence of tenderness throughout. Back: No spinal tenderness. No costovertebral tenderness. Skin: Warm, dry with normal turgor. Normal color with no rashes, no lesions, and no evidence of cellulitis. MS/ Extremity: Pulses equal, no cyanosis. Neurovascular intact. Full, normal range of motion. Neuro: Awake and alert, GCS 15, oriented to person, place, time, and situation. Cranial nerves II-XII grossly intact. Motor strength 5/5 in all extremities. Sensory grossly intact. Psych: Awake, alert, with orientation to person, place and time. Behavior, mood, and affect are within normal limits 21:17 ECG was reviewed by the Attending Physician. EKG time 2011 EKG rate 62 bpm. Patient has left ventricular hypertrophy with repolarization abnormality no acute findings. Vital Signs: 20:05 BP 126 / 87; Pulse 66; Resp 16; Temp 97.9; Pulse Ox 99% ; Weight 68.04 kg; Height 5 ft. vc1 2 in. ; Pain 10/10; 20:05 Body Mass Index 27.44 (68.04 kg, 157.48 cm) vc1 20:05 Pain Scale: Adult vc1 MDM: 20:14 Patient medically screened. sp4 21:21 Differential diagnosis: abnormal EKG, acute pericarditis, anxiety, chest wall pain. The sp4 patient was not given aspirin in the Emergency Department. Data reviewed: vital signs, nurses notes, EMS record, old medical records. ED course: Patient was evaluated here for the same complaint yesterday had a full cardiac workup was proven to be negative. Patient had a recent left heart catheter revealed no sign of significant coronary artery disease. 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 EC:17 Rate is 62 beats/min. Rhythm is regular, Normal Sinus Rhythm. QRS [place] is Normal. [place] sp4 interval is normal. QRS interval is normal. QT interval is normal. No ST changes noted. Clinical impression: No evidence of ischemia. Interpreted by me. Reviewed by me. Administered Medications: No medications were administered Disposition Summary: 07/15/23 21:15 Discharge Ordered Notes: Location: Home sp4 Problem: new sp4 Symptoms: have improved sp4 Condition: Stable sp4 Diagnosis - Chest pain, unspecified sp4 Followup: sp4 - With: Josse Olson MD - When: 7 - 10 days - Reason: Recheck today's complaints Discharge Instructions: - Discharge Summary Sheet sp4 - Nonspecific Chest Pain, Adult, [id number] sp4 Signatures: Syeda Bruce RN RN vc1 Uriel Cannon MD MD sp4
[2023-07-15 21:53] VITALS: BP 126/87; TEMP 97.9; O2SAT 99
--- NOTE | 2023-07-16 14:44 | EKG ---
Test Date: 2023-07-15 Test Time: 20:12:50 Tooth Clerk: NALINI MEASUREMENT RESULTS: Intervals: Rate: 62 RI: 206 QRSD: 98 QT: 442 QTc: 448 [place]: P: 46 RI: 206 QRS: 7 T: 149 INTERPRETIVE STATEMENTS: Normal sinus rhythm Left ventricular hypertrophy with repolarization abnormality Abnormal ECG Compared to ECG 07/15/2023 00:26:34 First degree AV block no longer present Electronically Signed On 07-16-23 14:43:23 CDT by Josse Olson
== END 2023-07-15 21:47 | disposition home or self-care (01) ==
LOC: ER 19:53
DX: R07.9 Chest pain, unspecified (principal); G81.94 Hemiplegia, unspecified affecting left nondominant side; I10 Essential (primary) hypertension; Z88.6 Allergy status to analgesic agent; Z91.013 Allergy to seafood; Z91.018 Allergy to other foods
CPT/HCPCS: 93005; 99283

== ENCOUNTER 2023-07-17 21:48 | Emergency (ER) | payer OTHER ==
--- NOTE | 2023-07-17 22:04 | ER ---
Nurse's Notes [facility] Name: Geetha Khan Age: 48 yrs Sex: Female : 1975 Arrival Date: 07/17/2023 Time: 21:48 Bed 18 Private MD: Diagnosis: chronic chest pain Presentation: 07/16 21:51 Chief complaint: EMS states: chest pain, sob, migraine today. Coronavirus screen: rv Client presents with at least one sign or symptom that may indicate coronavirus-19. Standard/surgical mask placed on the client. Provider contacted for isolation considerations. Ebola Screen: No symptoms or risks identified at this time. Initial Sepsis Screen: Does the patient meet any 2 criteria? No. Patient's initial sepsis screen is negative. Does the patient have a suspected source of infection? No. Patient's initial sepsis screen is negative. Risk Assessment: Do you want to hurt yourself or someone else? Patient reports no desire to harm self or others. Onset of symptoms was July 17, 2023. 21:51 Method Of Arrival: EMS: [facility] rv 21:51 Acuity: CORRINA 2 rv Triage Assessment: 21:52 General: Appears comfortable, Behavior is calm, cooperative. Pain: Complains of pain in rv chest. Neuro: Level of Consciousness is awake, alert, obeys commands, Oriented to person, place, time, situation. Cardiovascular: Capillary refill < 3 seconds Patient's skin is warm and dry. Respiratory: Airway is patent Respiratory effort is even, unlabored. Derm: Skin is intact. Historical: - Allergies: 21:52 Aspirin; rv 21:52 CRANBERRY; rv 21:52 FISH PRODUCT DERIVATIVES; rv 21:52 GRAPEFRUIT; rv 21:52 mushrooms; rv - PMHx: 21:52 Asthma; Cerebrovascular accident; COPD; Hypertension; Left arm paralysis and left leg rv weakness from previous CVA; Myocardial infarction; Seizures; Thyroid problem; - Immunization history:: Adult Immunizations up to date. - Infectious Disease History:: Denies. - Social history:: Smoking status: Patient reports the use of cigarette tobacco products, smokes one pack cigarettes per day. Screenin:53 [facility] ED Fall Risk Assessment (Adult) History of falling in the last 3 months, rv including since admission No falls in past 3 months (0 pts) Confusion or Disorientation No (0 pts) Intoxicated or Sedated No (0 pts) Impaired Gait Yes (1 pt) Mobility Assist Device Used Yes (1 pt) Altered Elimination No (0 pt) Score/Fall Risk Level 0 - 2 = Low Risk Oriented to surroundings, Maintained a safe environment, Educated pt \T\ family on fall prevention, incl call for assistance when getting out of bed, Assessed \T\ reinforced patient's understanding of fall precautions. Abuse screen: Denies threats or abuse. Denies injuries from another. Nutritional screening: No deficits noted. Tuberculosis screening: No symptoms or risk factors identified. Vital Signs: 22:04 BP 140 / 92; Pulse 85; Resp 18; Temp 98; Pulse Ox 100% ; rv ED Course: 21:50 Patient arrived in ED. sb4 21:50 Kalli Bradshaw PA-C is PHCP. sb4 21:50 Uriel Cannon MD is Attending Physician. sb4 21:51 Cale Fernandes RN is Primary Nurse. rv 21:52 Triage completed. rv 21:52 Arm band placed on right wrist. rv 21:53 Patient has correct armband on for positive identification. Client placed on continuous rv cardiac and pulse oximetry monitoring. NIBP monitoring applied. 21:53 No provider procedures requiring assistance completed. rv 22:04 Josse Olson MD is Referral Physician. sb4 22:05 Patient did not have IV access during this emergency room visit. rv 22:05 EKG done, by ED staff, reviewed by Kalli Bradshaw PA-C. rv Administered Medications: 22:04 Drug: Nitroglycerin Sublingual 0.4 mg Sublingual once Route: Sublingual; rv 22:30 Follow up: Response: No adverse reaction rv Medication: 21:53 VIS not applicable for this client. rv Outcome: 22:04 Discharge ordered by . sb4 22:05 Discharged to home via wheelchair, with family, rv 22:05 Condition: good 22:05 Discharge instructions given to patient, Instructed on discharge instructions, follow up and referral plans. Demonstrated understanding of instructions, follow-up care, 22:31 Patient left the ED. rv Signatures: Cale Fernandes, YANETH RN Kalli Manzo PA-C PA-C sb4
--- NOTE | 2023-07-17 22:04 | EDPHYS ---
Physician Documentation [facility] Name: Geetha Khan Age: 48 yrs Sex: Female : 1975 Arrival Date: 07/17/2023 Time: 21:48 Bed 18 Private MD: ED Physician Uriel Cannon HPI: 07/16 23:11 This 48 yrs old Female presents to ER via EMS with complaints of Chest Pain. sb4 23:11 Patient presents with complaints of chest pain. This is a chronic issue. States that sb4 she took Tylenol prior to arrival. She states that she is out of nitroglycerin. This is the 3rd day in a row she has been seen in this ED for chest pain, has had several negative cardiac workups. Has not followed up with cardiology. Historical: - Allergies: 21:52 Aspirin; rv 21:52 CRANBERRY; rv 21:52 FISH PRODUCT DERIVATIVES; rv 21:52 GRAPEFRUIT; rv 21:52 mushrooms; rv - PMHx: 21:52 Asthma; Cerebrovascular accident; COPD; Hypertension; Left arm paralysis and left leg rv weakness from previous CVA; Myocardial infarction; Seizures; Thyroid problem; - Immunization history:: Adult Immunizations up to date. - Infectious Disease History:: Denies. - Social history:: Smoking status: Patient reports the use of cigarette tobacco products, smokes one pack cigarettes per day. ROS: 23:11 Constitutional: Negative for fever, chills, and weight loss, sb4 23:11 Cardiovascular: Positive for chest pain, 23:11 All other systems are negative, Exam: 23:11 Constitutional: This is a well developed, well nourished patient who is awake, alert, sb4 and in no acute distress. Head/Face: Normocephalic, atraumatic. Eyes: Extra-ocular motions intact. Periorbital areas with no swelling, redness, or edema. ENT: Mucous membranes moist. 23:11 Cardiovascular: Regular rate and rhythm with a normal S1 and S2. Respiratory: Lungs have equal breath sounds bilaterally, clear to auscultation and percussion. No rales, rhonchi or wheezes noted. No increased work of breathing, no retractions or nasal flaring. Abdomen/GI: Soft, non-tender, no distension. Skin: Warm, dry with normal turgor. Normal color with no rashes, no lesions, and no evidence of cellulitis. MS/ Extremity: Pulses equal, no cyanosis. Neurovascular intact. Full, normal range of motion. Vital Signs: 22:04 BP 140 / 92; Pulse 85; Resp 18; Temp 98; Pulse Ox 100% ; rv MDM: 21:50 Patient medically screened. sb4 23:13 Data reviewed: vital signs, nurses notes, EMS record, EKG, and as a result, I will sb4 discharge patient. 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 07/16 21:53 Order name: EKG - Nurse/Tech; Complete Time: 22:04 sb4 EC:11 Rate is 58 beats/min. Rhythm is regular, Sinus bradycardia. NV interval is normal at sb4 208 msec. QRS interval is normal at 94 msec. QT interval is normal at 462 msec. No Q waves. T waves are Normal. No ST changes noted. Clinical impression: Abnormal EKG without significant change and LVH. Interpreted by me. Reviewed by me. Administered Medications: 22:04 Drug: Nitroglycerin Sublingual 0.4 mg Sublingual once Route: Sublingual; rv 22:30 Follow up: Response: No adverse reaction rv Disposition: 23:19 Co-signature as Attending Physician, Uriel Cannon MD I agree with the assessment sp4 and plan of care. I reviewed the patient's care provided by the Advanced Practice Provider and agree with the diagnosis and treatment plan. Disposition Summary: 07/17/23 22:04 Discharge Ordered Notes: Location: Home sb4 Problem: an ongoing problem sb4 Symptoms: are unchanged sb4 Condition: Stable sb4 Diagnosis - chronic chest pain sb4 Followup: sb4 - With: Josse Olson MD - When: 2 - 3 days - Reason: Recheck today's complaints, Re-evaluation by your physician Discharge Instructions: - Discharge Summary Sheet sb4 - Nonspecific Chest Pain, Adult, [id number] sb4 Forms: - Patient Portal Instructions sb4 - Leadership Thank You Letter sb4 Prescriptions: - Nitrostat 0.4 mg Sublingual Tablet, Sublingual - place 1 tablet SUBLINGUAL route one time As needed - at the first sign of an sb4 attack; no more than 3 tablets are recommended within a 15 minute period.; 25 tablet; Refills: 0, Product Selection Permitted Signatures: Cale Fernandes, Kalli Heller RN, PA-C PA-C sb4 Uriel Cannon MD MD sp4
[2023-07-17 22:57] VITALS: BP 140/92; TEMP 98; O2SAT 100
--- NOTE | 2023-07-19 14:41 | EKG ---
Test Date: 2023-07-17 Test Time: 22:00:47 Garment Manufacturer: RV MEASUREMENT RESULTS: Intervals: Rate: 58 IL: 208 QRSD: 94 QT: 462 QTc: 453 [place]: P: 46 IL: 208 QRS: -6 T: 142 INTERPRETIVE STATEMENTS: Sinus bradycardia Left ventricular hypertrophy with repolarization abnormality Abnormal ECG Compared to ECG 07/15/2023 20:12:50 Sinus rhythm no longer present Electronically Signed On 07-19-23 14:38:42 CDT by Josse Olson
== END 2023-07-17 22:31 | disposition home or self-care (01) ==
LOC: ER 21:48
DX: R07.9 Chest pain, unspecified (principal); I10 Essential (primary) hypertension; I25.2 Old myocardial infarction; F17.210 Nicotine dependence, cigarettes, uncomplicated; Z88.6 Allergy status to analgesic agent; Z91.013 Allergy to seafood; Z91.018 Allergy to other foods
CPT/HCPCS: 93005; 99284

== ENCOUNTER 2023-07-25 21:08 | Emergency (ER) | payer OTHER ==
--- NOTE | 2023-07-25 21:56 | EDPHYS ---
Physician Documentation [facility] Name: Geetha Khan Age: 48 yrs Sex: Female : 1975 Arrival Date: 07/25/2023 Time: 21:08 Bed 7 Private MD: ED Physician Kye De Anda HPI: 07/24 21:16 This 48 yrs old Female presents to ER via EMS with complaints of chest pain. rt 21:16 Patient presents to the ED with chest pain, consistent with her chronic chest pain. rt Patient states that she has had chest pain over the past 3 days. Denies other acute complaints at this time, symptoms are moderate severity, no other aggravating or alleviating factors.. 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 Flu vaccine is up to date. - Infectious Disease History:: Denies. - Social history:: Smoking status: Patient reports the use of cigarette tobacco products, smokes one-half pack cigarettes per day, Patient/guardian denies using alcohol, street drugs. - Family history:: not pertinent. ROS: 21:16 Constitutional: Negative for fever, chills, and weight loss, Respiratory: Negative for rt shortness of breath, cough, wheezing, and pleuritic chest pain, Abdomen/GI: Negative for abdominal pain, nausea, vomiting, diarrhea, and constipation, Skin: Negative for injury, rash, and discoloration, Neuro: Negative for headache, weakness, numbness, tingling, and seizure, 21:16 Cardiovascular: Positive for chest pain, Negative for edema, Exam: 21:16 Constitutional: This is a well developed, well nourished patient who is awake, alert, rt and in no acute distress. Head/Face: Normocephalic, atraumatic. Chest/axilla: Normal chest wall appearance and motion. Nontender with no deformity. No lesions are appreciated. Cardiovascular: Regular rate and rhythm with a normal S1 and S2. No gallops, murmurs, or rubs. Normal PMI, no JVD. No pulse deficits. Respiratory: Lungs have equal breath sounds bilaterally, clear to auscultation and percussion. No rales, rhonchi or wheezes noted. No increased work of breathing, no retractions or nasal flaring. Abdomen/GI: Soft, non-tender, with normal bowel sounds. No distension or tympany. No guarding or rebound. No evidence of tenderness throughout. Skin: Warm, dry with normal turgor. Normal color with no rashes, no lesions, and no evidence of cellulitis. MS/ Extremity: Pulses equal, no cyanosis. Neurovascular intact. Full, normal range of motion. Neuro: Awake and alert, GCS 15, oriented to person, place, time, and situation. Cranial nerves II-XII grossly intact. Motor strength 5/5 in all extremities. Sensory grossly intact. Cerebellar exam normal. Normal gait. 21:22 ECG was reviewed by the Attending Physician. rt Vital Signs: 21:15 BP 107 / 78; Pulse 60; Resp 17 S; Temp 98.1(O); Pulse Ox 100% on R/A; Weight 68.04 kg lg3 (R); Height 5 ft. 2 in. (R); 22:02 BP 114 / 73; Pulse 66; Resp 17 S; Temp 98(O); Pulse Ox 100% on R/A; lg3 21:15 Body Mass Index 27.44 (68.04 kg, 157.48 cm) lg3 MDM: 21:09 Patient medically screened. rt 21:57 Differential Diagnosis Chronic chest pain, ACS. Data reviewed: vital signs, nurses rt notes, lab test result(s), EKG. Consideration of Admission/Observation Escalation of care including admission/observation considered. Patient with multiple recent negative workups, recent C which was unremarkable. Given chronicity of symptoms, 1 set of enzymes is sufficient to rule out acute coronary syndrome. Patient encouraged to follow-up as an outpatient.. I considered the following discharge prescriptions or medication management in the emergency department Patient refused aspirin. Counseling: I had a detailed discussion with the patient and/or guardian regarding the historical points, exam findings, and any diagnostic results supporting the discharge/admit diagnosis, lab results, the need for outpatient follow up. 07/24 21:14 Order name: Troponin High Sensitivity; Complete Time: 21:55 rt 07/24 21:14 Order name: EKG; Complete Time: 21:15 rt 07/24 21:14 Order name: EKG - Nurse/Tech; Complete Time: 21:20 rt EC:22 Rate is 59 beats/min. Rhythm is regular, Sinus bradycardia with No ectopy, LVH with rt repolarization abnormality, no changes compared to prior EKG. QRS [place] is Normal. [place] interval is normal. QRS interval is normal. QT interval is normal. No Q waves. Administered Medications: No medications were administered Disposition Summary: 07/25/23 21:56 Discharge Ordered Notes: Location: Home rt Problem: chronic rt Symptoms: are unchanged rt Condition: Stable rt Diagnosis - Chronic chest pain rt Followup: rt - With: Private Physician - When: 2 - 3 days - Reason: Discharge Instructions: - Discharge Summary Sheet rt - Nonspecific Chest Pain, Adult rt Forms: - Medication Reconciliation Form rt - Antibiotic Education rt - Prescription Opioid Use rt - Patient Portal Instructions rt - Leadership Thank You Letter rt Signatures: Dispatcher [employer] Lauren Currie, RN RN lg3 Kye De Anda MD MD rt
--- NOTE | 2023-07-25 21:56 | ER ---
Nurse's Notes [facility] Name: Geetha Khan Age: 48 yrs Sex: Female : 1975 Arrival Date: 07/25/2023 Time: 21:08 Bed 7 Private MD: Diagnosis: Chronic chest pain Presentation: 07/24 21:15 Chief complaint: Patient states: CP X2 days. Coronavirus screen: Client denies travel lg3 out of the [place] in the last 14 days. At this time, the client does not indicate any symptoms associated with coronavirus-19. Ebola Screen: No symptoms or risks identified at this time. Initial Sepsis Screen: Does the patient meet any 2 criteria? No. Patient's initial sepsis screen is negative. Does the patient have a suspected source of infection? No. Patient's initial sepsis screen is negative. Risk Assessment: Do you want to hurt yourself or someone else? Patient reports no desire to harm self or others. Onset of symptoms was July 23, 2023. 21:15 Method Of Arrival: EMS: [facility] 3 21:15 Acuity: CORRINA 3 lg3 Triage Assessment: 21:16 General: Appears in no apparent distress. comfortable, Behavior is calm, cooperative. lg3 Pain: Complains of pain in chest Pain currently is 4 out of 10 on a pain scale. EENT: No deficits noted. No signs and/or symptoms were reported regarding the EENT system. Neuro: No deficits noted. Mullen Agitation-Sedation Scale (RASS): 0 - Alert and Calm Level of Consciousness is awake, alert, obeys commands, Oriented to person, place, time, situation. Cardiovascular: No deficits noted. Reports chest pain, Heart tones S1 S2 present Capillary refill < 3 seconds Clubbing of nail beds is absent JVD is absent Patient's skin is warm and dry. Respiratory: No deficits noted. Airway is patent Respiratory effort is even, unlabored, Respiratory pattern is regular, symmetrical, Breath sounds are clear bilaterally. GI: No deficits noted. No signs and/or symptoms were reported involving the gastrointestinal system. Abdomen is round non-distended, obese. : No deficits noted. No signs and/or symptoms were reported regarding the genitourinary system. Derm: No deficits noted. No signs and/or symptoms reported regarding the dermatologic system. Skin is intact, is healthy with good turgor, Skin is dry, Skin is normal, Skin temperature is warm. Musculoskeletal: No signs and/or symptoms reported regarding the musculoskeletal system. Circulation, motion, and sensation intact. 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 Flu vaccine is up to date. - Infectious Disease History:: Denies. - Social history:: Smoking status: Patient reports the use of cigarette tobacco products, smokes one-half pack cigarettes per day, Patient/guardian denies using alcohol, street drugs. - Family history:: not pertinent. Screenin:17 [facility] ED Fall Risk Assessment (Adult) History of falling in the last 3 months, lg3 including since admission No falls in past 3 months (0 pts) Confusion or Disorientation No (0 pts) Intoxicated or Sedated No (0 pts) Impaired Gait Yes (1 pt) Mobility Assist Device Used No (0 pt) Altered Elimination No (0 pt) Score/Fall Risk Level 0 - 2 = Low Risk Oriented to surroundings, Maintained a safe environment, Educated pt \T\ family on fall prevention, incl call for assistance when getting out of bed, Assessed \T\ reinforced patient's understanding of fall precautions. Abuse screen: Denies threats or abuse. Denies injuries from another. Nutritional screening: No deficits noted. Tuberculosis screening: No symptoms or risk factors identified. Assessment: 21:17 General: see triage assessment. lg3 22:02 Reassessment: Patient appears in no apparent distress at this time. No changes from lg3 previously documented assessment. Patient and/or family updated on plan of care and expected duration. Pain level reassessed. Patient is alert, oriented x 3, equal unlabored respirations, skin warm/dry/pink. Vital Signs: 21:15 BP 107 / 78; Pulse 60; Resp 17 S; Temp 98.1(O); Pulse Ox 100% on R/A; Weight 68.04 kg lg3 (R); Height 5 ft. 2 in. (R); 22:02 BP 114 / 73; Pulse 66; Resp 17 S; Temp 98(O); Pulse Ox 100% on R/A; lg3 21:15 Body Mass Index 27.44 (68.04 kg, 157.48 cm) lg3 ED Course: 21:09 Patient arrived in ED. pf1 21:09 Kye De Anda MD is Attending Physician. rt 21:15 Lauren Heath RN is Primary Nurse. lg3 21:16 Triage completed. lg3 21:16 Arm band placed on right wrist. lg3 21:17 Patient has correct armband on for positive identification. Placed in gown. Client lg3 placed on continuous cardiac and pulse oximetry monitoring. NIBP monitoring applied. night monitor on. Door closed. Warm blanket given. 21:33 Inserted saline lock: 22 gauge in right antecubital area, using aseptic technique. lg3 Blood collected. 21:50 Warm blanket given. pf1 22:02 No provider procedures requiring assistance completed. IV discontinued, intact, lg3 bleeding controlled, No redness/swelling at site. Pressure dressing applied. Administered Medications: No medications were administered Medication: 22:02 VIS not applicable for this client. lg3 Outcome: 21:56 Discharge ordered by . rt 22:02 Discharged to home via wheelchair, with significant other, lg3 22:02 Condition: stable 22:02 Discharge instructions given to patient, Instructed on discharge instructions, follow up and referral plans. Demonstrated understanding of instructions, follow-up care, 22:04 Patient left the ED. lg3 Signatures: Lauren Heath, RN RN lg3 Kye De Anda MD MD rt Maddy Gar, RN RN pf1
[2023-07-25 22:44] VITALS: BP 114/73; TEMP 98; O2SAT 100
--- NOTE | 2023-07-29 13:29 | EKG ---
Test Date: 2023-07-25 Test Time: 21:17:09 Fish Bin Tender: ALEIDA MEASUREMENT RESULTS: Intervals: Rate: 59 MA: 206 QRSD: 88 QT: 434 QTc: 429 [place]: P: 56 MA: 206 QRS: 21 T: 154 INTERPRETIVE STATEMENTS: Sinus bradycardia Left ventricular hypertrophy with repolarization abnormality Abnormal ECG Compared to ECG 07/17/2023 22:00:47 No significant changes Electronically Signed On 07-29-23 13:19:50 CDT by Josse Olson
== END 2023-07-25 22:04 | disposition home or self-care (01) ==
LOC: ER 21:08
DX: R07.89 Other chest pain (principal); I10 Essential (primary) hypertension; I25.2 Old myocardial infarction; F17.210 Nicotine dependence, cigarettes, uncomplicated; Z88.6 Allergy status to analgesic agent; Z91.013 Allergy to seafood; Z91.018 Allergy to other foods
CPT/HCPCS: 36415; 84484; 93005; 99284

== ENCOUNTER 2023-07-31 03:51 | Emergency (ER) | payer OTHER ==
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
== END 2023-07-31 04:03 | disposition home or self-care (01) ==
LOC: ER 03:51
DX: S20.211A Contusion of right front wall of thorax, initial encounter (principal); F17.210 Nicotine dependence, cigarettes, uncomplicated; Z88.6 Allergy status to analgesic agent; Z91.013 Allergy to seafood; Z91.018 Allergy to other foods

== ENCOUNTER 2023-07-31 12:37 | Emergency (ER) | payer OTHER ==
[2023-07-31] MEDS ORDERED: HYDROCODONE/APAP 5/325 MG TAB ONE (13:02)
[2023-07-31 13:15] LABS: Absolute Eosinophils 0.2 K/uL (0-0.5); Absolute Lymphocytes (CBC) 1.5 K/uL (0.7-4.9); Absolute Monocytes 0.4 K/uL (0.1-1.3); Absolute Neutrophil 2.2 K/uL (1.8-8.0); Eosinophils % 5.5 % (0-4.4); Hematocrit 32.2 % (36.0-45.0); Hemoglobin 10.8 g/dL (12.0-15.0); Lymphocytes % 33.7 % (15.3-44.8); MCH 33.7 pg (27.0-35.0); MCHC 33.5 g/dL (32.0-36.0); MCV 100.5 fL (80-100); MPV 7.3 fL (7.6-11.3); Monocytes % 9.5 % (3.3-12.3); Neutrophils % 50.3 % (41.7-73.7); Platelets 163 thou/uL (152-406); Red Cell Distribution Width 15.7 % (12.1-15.2)
[2023-07-31 13:26] LABS: PT Prothrombin Time 11.4 SECONDS (9.5-12.5); Protime INR 1.04
[2023-07-31 13:34] LABS: Anion Gap 5.7 mEq/L (5.0-15.0); Potassium 3.7 mEq/L (3.5-5.1); Troponin High Sensitivity 36.3 pg/mL (<58.9)
--- NOTE | 2023-07-31 13:37 | RAD REPORT ---
EXAM DESCRIPTION: [place] Single View07/31/2023 1:14 pm CLINICAL HISTORY: Chest pain COMPARISON: June 2023 FINDINGS: The lungs appear clear of acute infiltrate. The heart is mildly enlarged There is either a left glenohumeral joint effusion or left humeral dislocation present. This is uncha nged from prior chest x-ray
--- NOTE | 2023-07-31 13:38 | RAD REPORT ---
EXAM DESCRIPTION: RAD - Shoulder Right 2 View - 07/31/2023 1:25 pm CLINICAL HISTORY: Right shoulder pain FINDINGS: No fracture or dislocation is seen. No bone or joint abnormality noted
--- NOTE | 2023-07-31 14:05 | ER ---
Nurse's Notes [facility] Name: Geetha Khan Age: 48 yrs Sex: Female : 1975 Arrival Date: 07/31/2023 Time: 12:37 Bed 17 Private MD: Diagnosis: Chest pain, unspecified;Contusion of right shoulder Presentation: 07/30 12:40 Chief complaint: Patient states: chest pain today, took 2 nitro at home with little kc6 relief. Coronavirus screen: At this time, the client does not indicate any symptoms associated with coronavirus-19. Ebola Screen: No symptoms or risks identified at this time. Initial Sepsis Screen: Does the patient meet any 2 criteria? No. Patient's initial sepsis screen is negative. Does the patient have a suspected source of infection? No. Patient's initial sepsis screen is negative. Risk Assessment: Do you want to hurt yourself or someone else? Patient reports no desire to harm self or others. Onset of symptoms was July 31, 2023. 12:40 Method Of Arrival: EMS: [facility] kc6 12:40 Acuity: CORRINA 3 kc6 Triage Assessment: 12:41 General: Appears in no apparent distress. comfortable, unkempt, well developed, kc6 Behavior is calm, cooperative, appropriate for age. Pain: Complains of pain in chest Pain does not radiate. EENT: No signs and/or symptoms were reported regarding the EENT system. Neuro: Level of Consciousness is awake, alert, obeys commands, Oriented to person, place, time, situation, Appropriate for age Shell Press Operator are weak on left Weakness in left arm(s) Gait is unsteady, Speech is normal, Facial droop on left, Pupils are PERRLA, Intact Babinski is positive. Cardiovascular: Reports chest pain, Heart tones S1 S2 present Capillary refill < 3 seconds. Respiratory: Airway is patent Trachea midline Respiratory effort is even, unlabored, Respiratory pattern is regular, symmetrical. GI: No signs and/or symptoms were reported involving the gastrointestinal system. : No signs and/or symptoms were reported regarding the genitourinary system. Derm: No signs and/or symptoms reported regarding the dermatologic system. Skin is intact, is healthy with good turgor, Skin is pink, warm \T\ dry. Musculoskeletal: No signs and/or symptoms reported regarding the musculoskeletal system. Circulation, motion, and sensation intact. Capillary refill < 3 seconds, Range of motion: intact in all extremities. 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 Flu vaccine is up to date. - Infectious Disease History:: Denies. - Social history:: Smoking status: Patient reports the use of cigarette tobacco products, smokes one-half pack cigarettes per day. - Family history:: not pertinent. - Hospitalizations: : No recent hospitalization is reported. Screenin:43 [facility] ED Fall Risk Assessment (Adult) History of falling in the last 3 months, [facility] including since admission No falls in past 3 months (0 pts) Confusion or Disorientation No (0 pts) Intoxicated or Sedated No (0 pts) Impaired Gait Yes (1 pt) Mobility Assist Device Used Yes (1 pt) Altered Elimination No (0 pt) Score/Fall Risk Level 0 - 2 = Low Risk. Abuse screen: Denies threats or abuse. Denies injuries from another. Nutritional screening: No deficits noted. Tuberculosis screening: No symptoms or risk factors identified. Assessment: 12:42 Reassessment: please see triage. [facility] 13:49 Reassessment: Patient appears in no apparent distress at this time. No changes from [facility] previously documented assessment. Patient and/or family updated on plan of care and expected duration. Pain level reassessed. Patient is alert, oriented x 3, equal unlabored respirations, skin warm/dry/pink. Vital Signs: 12:40 BP 106 / 76; Pulse 79; Resp 16 S; Pulse Ox 100% on R/A; Weight 65.77 kg (R); Height 5 kc6 ft. 4 in. (R); 13:49 BP 106 / 81; Pulse 80; Resp 15 S; Pulse Ox 99% on R/A; kc6 12:40 Body Mass Index 24.89 (65.77 kg, 162.56 cm) [facility] ED Course: 12:39 Patient arrived in ED. as6 12:40 Cate Melchor, RN is Primary Nurse. kc6 12:41 Triage completed. kc6 12:41 Arm band placed on. kc6 12:43 Patient has correct armband on for positive identification. Placed in gown. Bed in low kc6 position. Side rails up X2. Client placed on continuous cardiac and pulse oximetry monitoring. NIBP monitoring applied. monitoring tech on. Pillow given. 12:44 Gene Medrano MD is Attending Physician. rn 13:03 Inserted saline lock: 22 gauge in right antecubital area, using aseptic technique. kc6 Blood collected. 13:13 XRAY Chest (1 view) In Process Unspecified. EDMS 13:24 XRAY Shoulder RIGHT 2 view In Process Unspecified. EDMS 13:48 PO fluids given. ll1 14:14 No provider procedures requiring assistance completed. IV discontinued, intact, kc6 bleeding controlled, No redness/swelling at site. Pressure dressing applied. Administered Medications: 13:06 Drug: HYDROcodone-acetaminophen PO 5 mg-325 mg 1 tabs PO once Route: PO; kc6 14:14 Follow up: Response: No adverse reaction; Pain is decreased; RASS: Alert and Calm (0) kc6 Medication: 14:14 VIS not applicable for this client. kc6 Outcome: 14:04 Discharge ordered by . rn 14:14 Discharged to home via wheelchair, with significant other, kc6 14:14 Condition: good 14:14 Discharge instructions given to patient, significant other, Instructed on discharge instructions, follow up and referral plans. Demonstrated understanding of instructions, follow-up care, 14:14 Patient left the ED. kc6 Signatures: Dispatcher [employer] EDMS Gene Medrano MD MD rn Lewis, Lynsay, RN RN ll1 Florentin Lester RN RN as6 Cate Melchor, YANETH RN kc6
--- NOTE | 2023-07-31 14:05 | EDPHYS ---
Physician Documentation [facility] Name: Geetha Khan Age: 48 yrs Sex: Female : 1975 Arrival Date: 07/31/2023 Time: 12:37 Bed 17 Private MD: ED Physician Gene Medrano HPI: 07/30 13:34 This 48 yrs old Female presents to ER via EMS with complaints of Chest Pain. rn 13:34 The patient or guardian reports chest pain that is located primarily in the chest rn diffusely. Onset: at an unknown time. The pain does not radiate. The chest pain is described as aching. Modifying factors: The symptoms are alleviated by nothing. the symptoms are aggravated by nothing. Severity of pain: At its worst the pain was mild in the emergency department the pain is unchanged. The patient has experienced similar episodes in the past. Patient reports chest pain, diffusely, nonradiating, not associated with shortness of breath. Unknown onset. Tried nitroglycerin did not help. Patient reports fell out of bed and injured right shoulder. No hemoptysis. Does not feel ill. No productive cough. No abdominal pain or back pain.. 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 Flu vaccine is up to date. - Infectious Disease History:: Denies. - Social history:: Smoking status: Patient reports the use of cigarette tobacco products, smokes one-half pack cigarettes per day. - Family history:: not pertinent. - Hospitalizations: : No recent hospitalization is reported. ROS: 13:34 Constitutional: Negative for fever, chills, and weight loss, Cardiovascular: Positive rn for chest pain Respiratory: Negative for shortness of breath, cough, wheezing, and pleuritic chest pain, Abdomen/GI: Negative for abdominal pain, nausea, vomiting, diarrhea, and constipation, MS/Extremity: Positive for right shoulder pain Skin: Negative for injury, rash, and discoloration, Neuro: Negative for headache, weakness, numbness, tingling, and seizure, Exam: 13:34 Constitutional: This is a well developed, well nourished patient who is awake, alert, rn and in no acute distress. Head/Face: Normocephalic, atraumatic. Neck: No midline cervical tenderness Chest/axilla: Normal chest wall appearance and motion. Nontender with no deformity. No lesions are appreciated. Cardiovascular: Regular rate and rhythm. No pulse deficits. Respiratory: No increased work of breathing, no retractions or nasal flaring. Abdomen/GI: Soft, non-tender Back: No spinal tenderness. No CVA tenderness MS/ Extremity: Pulses equal, no cyanosis. Neurovascular intact. Mild painful range of motion right shoulder and tenderness at right scapula. No external ecchymosis or crepitus noted Neuro: Awake and alert, GCS 15, oriented to person, place, time, and situation. Cranial nerves II-XII grossly intact. Sensory grossly intact. 14:04 ECG was reviewed by the Attending Physician. rn Vital Signs: 12:40 BP 106 / 76; Pulse 79; Resp 16 S; Pulse Ox 100% on R/A; Weight 65.77 kg (R); Height 5 kc6 ft. 4 in. (R); 13:49 BP 106 / 81; Pulse 80; Resp 15 S; Pulse Ox 99% on R/A; kc6 12:40 Body Mass Index 24.89 (65.77 kg, 162.56 cm) kc6 MDM: 12:44 Patient medically screened. rn 14:02 Differential diagnosis: acute myocardial infarction, acute pericarditis, anxiety, chest rn wall pain, pleurisy, pneumothorax. Data reviewed: vital signs, nurses notes, lab test result(s), EKG, radiologic studies, plain films. Counseling: I had a detailed discussion with the patient and/or guardian regarding the historical points, exam findings, and any diagnostic results supporting the discharge/admit diagnosis, lab results, radiology results, the need for outpatient follow up, to return to the emergency department if symptoms worsen or persist or if there are any questions or concerns that arise at home. ED course: Patient requesting to leave. She states she called her and if she does not leave now she will not be picked up by her later. Troponin negative. No ischemia on EKG. X-ray negative for right shoulder injury. Patient has had a stroke on the left side and does not use left arm. Able to range passively and does not appear to be dislocated. Will discharge home with return precautions.. 14:03 Special discussion: Based on the patient's history, exam, and Dx evaluation, there is rn no indication for emergent intervention or inpatient Tx. It is understood by the patient/guardian that if the Sx's persist or worsen they need to return immediately for re-evaluation. I discussed with the patient/guardian in detail that at this point there is no indication for admission to the hospital. It is understood, however, that if the symptoms persist or worsen the patient needs to return immediately for re-evaluation. 07/30 12:45 Order name: Basic Metabolic Panel; Complete Time: :07/30 12:45 Order name: CBC with Diff; Complete Time: :07/30 12:45 Order name: NT PRO-BNP; Complete Time: :07/30 12:45 Order name: PT-INR; Complete Time: :07/30 12:45 Order name: Troponin HS; Complete Time: :07/30 12:45 Order name: XRAY Chest (1 view); Complete Time: :07/30 12:49 Order name: XRAY Shoulder RIGHT 2 view; Complete Time: :07/30 12:45 Order name: Cardiac monitoring; Complete Time: 13:07/30 12:45 Order name: EKG - Nurse/Tech; Complete Time: 13:07/30 12:45 Order name: IV Saline Lock; Complete Time: 13:07/30 12:45 Order name: Labs collected and sent; Complete Time: 13:07/30 12:45 Order name: O2 Per Protocol; Complete Time: 12:45 07/30 12:45 Order name: O2 Sat Monitoring; Complete Time: 12:46 rn EC:04 Rate is 72 beats/min. Rhythm is irregular. [place] interval is normal. QRS interval is rn normal. T waves are Normal. No ST changes noted. Clinical impression: NSR w/ Non-specific ST/T Changes. Interpreted by me. Reviewed by me. Administered Medications: 13:06 Drug: HYDROcodone-acetaminophen PO 5 mg-325 mg 1 tabs PO once Route: PO; kc6 14:14 Follow up: Response: No adverse reaction; Pain is decreased; RASS: Alert and Calm (0) kc6 Disposition Summary: 07/31/23 14:04 Discharge Ordered Notes: Location: Home rn Problem: new rn Symptoms: have improved rn Condition: Stable rn Diagnosis - Chest pain, unspecified rn - Contusion of right shoulder rn Followup: rn - With: Private Physician - When: As needed - Reason: Recheck today's complaints, Re-evaluation by your physician Discharge Instructions: - Discharge Summary Sheet rn - Contusion rn - Nonspecific Chest Pain, Adult rn Forms: - Medication Reconciliation Form rn - Antibiotic help desk internship - Prescription Opioid Use rn - Patient Portal Instructions rn - Leadership Thank You Letter rn Signatures: Dispatcher [employer] Gene Simon MD MD rn Campbell, Kaitlyn, RN RN kc6 Corrections: (The following items were deleted from the chart) 14:03 13:34 Constitutional: This is a well developed, well nourished patient who is awake, rn alert, and in no acute distress. Head/Face: Normocephalic, atraumatic. Neck: No midline cervical tenderness Chest/axilla: Normal chest wall appearance and motion. Nontender with no deformity. No lesions are appreciated. Cardiovascular: Regular rate and rhythm. No pulse deficits. Respiratory: No increased work of breathing, no retractions or nasal flaring. Abdomen/GI: Soft, non-tender Back: No spinal tenderness. No CVA tenderness MS/ Extremity: Pulses equal, no cyanosis. Neurovascular intact. Mild painful range of motion right shoulder and tenderness at right scapula. No external ecchymosis or crepitus noted Neuro: Awake and alert, GCS 15, oriented to person, place, time, and situation. Cranial nerves II-XII grossly intact. Motor strength 5/5 in all extremities. Sensory grossly intact. rn
[2023-07-31 15:18] VITALS: BP 106/81; O2SAT 99
== END 2023-07-31 14:14 | disposition home or self-care (01) ==
LOC: ER 12:37
DX: R07.9 Chest pain, unspecified (principal); S40.011A Contusion of right shoulder, initial encounter; F17.210 Nicotine dependence, cigarettes, uncomplicated; Z88.6 Allergy status to analgesic agent; Z91.013 Allergy to seafood; Z91.018 Allergy to other foods
CPT/HCPCS: 36415; 71045; 80048; 83880; 84484; 85025; 85610; 93005

== ENCOUNTER 2023-08-14 20:37 | Emergency (ER) | payer OTHER ==
[2023-08-14] MEDS ORDERED: IBUPROFEN 400 MG TAB ONE (21:10)
[2023-08-14] MEDS ORDERED: HYDROCODONE/APAP 5/325 MG TAB ONE (21:11)
[2023-08-14] MEDS ORDERED: PROMETHAZINE INJ 25 MG/ML AMP ONE (21:11)
[2023-08-14] MEDS ORDERED: ONDANSETRON 4 MG (ODT) TAB ONE (21:11)
--- NOTE | 2023-08-14 22:10 | EDPHYS ---
Physician Documentation [facility] Name: Geetha Khan Age: 48 yrs Sex: Female : 1975 Arrival Date: 08/14/2023 Time: 20:37 Bed 2 Private MD: ED Physician Uriel Cannon HPI: 08/13 20:41 This 48 yrs old Female presents to ER via Unassigned with complaints of chest sp4 pain , vomiting. 21:59 48-year-old female presents with complaint of chest pain and vomiting. Patient presents sp4 with EMS for complaint of chest pain and vomiting. 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 Patient's medications include atorvastatin 40 mg bedtime, folic acid 1 mg p.o. daily, metoprolol succinate 25 mg bedtime, lisinopril 20 mg daily, hydrocodone 5 as needed, clopidogrel 75 mg daily, isosorbide dinitrate 30 mg p.o. daily. Further history of tonsillectomy ovarian cyst removal, no alcohol or drug use.. 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 Flu vaccine is up to date. - Infectious Disease History:: Denies. - Social history:: Smoking status: Patient reports the use of cigarette tobacco products, 3-4 A DAY, Patient/guardian denies using alcohol, street drugs, IV drugs. - Family history:: not pertinent. ROS: 21:59 Constitutional: Negative for fever, chills, and weight loss, positive for chest pain sp4 and vomiting. 21:59 All other systems are negative, Exam: 21:59 Constitutional: This is a well developed, well nourished patient who is awake, alert, sp4 and in no acute distress. Patient has chronic left-sided hemiparesis from prior CVA. Head/Face: Normocephalic, atraumatic. Eyes: Pupils equal round and reactive to light, extra-ocular motions intact. Lids and lashes normal. Conjunctiva and sclera are not injected. Cornea within normal limits. Periorbital areas with no swelling, redness, or edema. ENT: Nares patent. No nasal discharge, no septal abnormalities noted. Tympanic membranes are normal and external auditory canals are clear. Oropharynx with no redness, swelling, or masses, exudates, or evidence of obstruction, uvula midline. Mucous membranes moist. Neck: Trachea midline, no thyromegaly or masses palpated, and no cervical lymphadenopathy. Supple, full range of motion without nuchal rigidity, or vertebral point tenderness. Chest/axilla: Normal chest wall appearance and motion. Nontender with no deformity. No lesions are appreciated. Cardiovascular: Regular rate and rhythm with a normal S1 and S2. No gallops, murmurs, or rubs. Normal PMI, no JVD. No pulse deficits. Respiratory: Lungs have equal breath sounds bilaterally, clear to auscultation and percussion. No rales, rhonchi or wheezes noted. No increased work of breathing, no retractions or nasal flaring. Abdomen/GI: Soft, with normal bowel sounds. No distension or tympany. No guarding or rebound. No evidence of tenderness throughout. Back: No spinal tenderness. No costovertebral tenderness. Skin: Warm, dry with normal turgor. Normal color with no rashes, no lesions, and no evidence of cellulitis. MS/ Extremity: Pulses equal, no cyanosis. Positive longstanding left-sided hemiparesis from prior CVA. Neuro: Awake and alert, GCS 15, oriented to person, place, time, and situation. Positive left-sided hemiparesis which is chronic, no new neurologic deficits. Psych: Awake, alert, with orientation to person, place and time. Behavior, mood, and affect are within normal limits 21:59 ECG was reviewed by the Attending Physician. EKG at 2105 reveals sinus bradycardia at a rate of 58, no ST elevation or depression, left ventricular hypertrophy. Vital Signs: 20:42 BP 116 / 76; Pulse 130; Resp 16; Temp 97.3; Pulse Ox 99% ; Weight 65.77 kg; Height 5 j7 ft. 2 in. ; 21:56 BP 115 / 82; Pulse 60; Resp 17; Pulse Ox 100% ; jj7 22:50 BP 126 / 93; Pulse 61; Resp 17; Temp 97.3; Pulse Ox 100% ; jj7 20:42 Body Mass Index 26.52 (65.77 kg, 157.48 cm) j7 MDM: 20:43 Patient medically screened. sp4 22:50 Differential Diagnosis altered mental status, sepsis, flu, Noncardiac chest pain, sp4 vomiting. Data reviewed: vital signs, nurses notes, EMS record, old medical records, EKG. ED course: Patient is well-known to me from multiple prior ER visits. Patient is stable vital signs, unremarkable EKG, no changes since prior EKG. patient has tolerated p.o. intake and tolerated p.o. medicine. Stable for discharge home at this time.. ED course: Will advised to resume normal medications at home.. 08/13 20:42 Order name: EKG; Complete Time: 20:42 sp4 08/13 20:42 Order name: EKG - Nurse/Tech; Complete Time: 21:00 sp4 EC:59 Rate is 58 beats/min. Rhythm is regular, Sinus bradycardia. QRS [place] is Normal. [place] sp4 interval is normal. QRS interval is normal. QT interval is normal. No Q waves. No ST changes noted. Clinical impression: No evidence of ischemia. Interpreted by me. Reviewed by me. Administered Medications: 21:19 Drug: HYDROcodone-acetaminophen PO 5 mg-325 mg 1 tabs PO once Route: PO; jj7 22:56 Follow up: Response: Marked relief of symptoms; Pain is decreased jj7 21:19 Drug: Ibuprofen PO 800 mg PO once Route: PO; jj7 22:56 Follow up: Response: Marked relief of symptoms jj7 21:19 Drug: Ondansetron PO 4 mg PO once Route: PO; jj7 22:56 Follow up: Response: Marked relief of symptoms; Nausea is decreased jj7 21:19 Drug: Promethazine IM 25 mg IM once Route: IM; Site: right deltoid; jj7 22:56 Follow up: Response: Marked relief of symptoms jj7 Disposition Summary: 08/14/23 22:10 Discharge Ordered Notes: Location: Home sp4 Problem: new sp4 Symptoms: have improved sp4 Condition: Stable sp4 Diagnosis - Nausea with vomiting, unspecified sp4 - Non cardiac chest pain sp4 Followup: sp4 - With: Private Physician - When: 7 - 10 days - Reason: Recheck today's complaints Discharge Instructions: - Discharge Summary Sheet sp4 - Nausea, Adult, [id number] sp4 Forms: - Patient Portal Instructions sp4 Signatures: Ernestine Nielson RN RN jj7 Uriel Cannon MD MD sp4
--- NOTE | 2023-08-14 22:10 | ER ---
Nurse's Notes [facility] Name: Geetha Khan Age: 48 yrs Sex: Female : 1975 Arrival Date: 08/14/2023 Time: 20:37 Bed 2 Private MD: Diagnosis: Nausea with vomiting, unspecified;Non cardiac chest pain Presentation: 08/13 20:42 Chief complaint: Patient states: CHEST PAIN AND NAUSEA EMS states: CHEST PAIN. jj7 Coronavirus screen: At this time, the client does not indicate any symptoms associated with coronavirus-19. Ebola Screen: No symptoms or risks identified at this time. Initial Sepsis Screen: Does the patient meet any 2 criteria? HR > 90 bpm. Yes Does the patient have a suspected source of infection? No. Patient's initial sepsis screen is negative. Risk Assessment: Do you want to hurt yourself or someone else? Patient reports no desire to harm self or others. Onset of symptoms was August 14, 2023. 20:42 Method Of Arrival: EMS: [facility] 7 20:42 Acuity: CORRINA 4 jj7 Triage Assessment: 20:46 General: Appears in no apparent distress. comfortable, Behavior is calm, cooperative, jj7 appropriate for age. Pain: Complains of pain in chest. Cardiovascular: Chest pain. 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 Flu vaccine is up to date. - Infectious Disease History:: Denies. - Social history:: Smoking status: Patient reports the use of cigarette tobacco products, 3-4 A DAY, Patient/guardian denies using alcohol, street drugs, IV drugs. - Family history:: not pertinent. Screenin:47 [facility] ED Fall Risk Assessment (Adult) History of falling in the last 3 months, jj7 including since admission Yes- single mechanical fall (1 pt) Confusion or Disorientation No (0 pts) Intoxicated or Sedated No (0 pts) Impaired Gait Yes (1 pt) Mobility Assist Device Used Yes (1 pt) Altered Elimination No (0 pt) Score/Fall Risk Level 3 or more points = High Risk Oriented to surroundings, Maintained a safe environment, Educated pt \T\ family on fall prevention, incl call for assistance when getting out of bed. Abuse screen: Denies threats or abuse. Nutritional screening: No deficits noted. Tuberculosis screening: No symptoms or risk factors identified. Assessment: 20:47 Pain: Pain does not radiate. Pain began gradually. jj7 20:47 GI: Reports nausea. jj7 Vital Signs: 20:42 BP 116 / 76; Pulse 130; Resp 16; Temp 97.3; Pulse Ox 99% ; Weight 65.77 kg; Height 5 j7 ft. 2 in. ; 21:56 BP 115 / 82; Pulse 60; Resp 17; Pulse Ox 100% ; jj7 22:50 BP 126 / 93; Pulse 61; Resp 17; Temp 97.3; Pulse Ox 100% ; jj7 20:42 Body Mass Index 26.52 (65.77 kg, 157.48 cm) jj7 ED Course: 20:40 Patient arrived in ED. jj7 20:41 Uriel Cannon MD is Attending Physician. sp4 20:46 Triage completed. jj7 20:46 Arm band placed on right wrist. jj7 20:47 Patient has correct armband on for positive identification. Bed in low position. Call jj7 light in reach. Side rails up X2. Provided Education on: USE OF CALL NEWBY. Client placed on continuous cardiac and pulse oximetry monitoring. NIBP monitoring applied. Pulse ox on. NIBP on. 20:47 No provider procedures requiring assistance completed. jj7 22:59 Patient did not have IV access during this emergency room visit. O2 via RA Response to jj7 oxygen therapy: symptoms remain unchanged. Administered Medications: 21:19 Drug: HYDROcodone-acetaminophen PO 5 mg-325 mg 1 tabs PO once Route: PO; jj7 22:56 Follow up: Response: Marked relief of symptoms; Pain is decreased jj7 21:19 Drug: Ibuprofen PO 800 mg PO once Route: PO; jj7 22:56 Follow up: Response: Marked relief of symptoms jj7 21:19 Drug: Ondansetron PO 4 mg PO once Route: PO; jj7 22:56 Follow up: Response: Marked relief of symptoms; Nausea is decreased jj7 21:19 Drug: Promethazine IM 25 mg IM once Route: IM; Site: right deltoid; jj7 22:56 Follow up: Response: Marked relief of symptoms jj7 Medication: 20:47 VIS not applicable for this client. jj7 Outcome: 22:10 Discharge ordered by . sp4 22:59 Discharged to home via wheelchair, jj7 22:59 Condition: improved 22:59 Discharge instructions given to patient, Instructed on discharge instructions, Demonstrated understanding of instructions, 23:00 Patient left the ED. jj7 Signatures: Ernestine Nielson RN RN jj7 Uriel Cannon MD MD sp4
[2023-08-14 23:06] VITALS: TEMP 97.3; O2SAT 100
[2023-08-14 23:26] VITALS: BP 126/93
--- NOTE | 2023-08-16 16:55 | EKG ---
Test Date: 2023-08-14 Test Time: 21:05:31 Perfume Maker: RRKelly MEASUREMENT RESULTS: Intervals: Rate: 58 CA: 206 QRSD: 98 QT: 438 QTc: 429 [place]: P: 43 CA: 206 QRS: 0 T: 148 INTERPRETIVE STATEMENTS: Sinus bradycardia Left ventricular hypertrophy with repolarization abnormality Abnormal ECG Compared to ECG 07/31/2023 12:54:00 Sinus rhythm no longer present Ventricular premature complex(es) no longer present Electronically Signed On 08-16-23 16:49:43 CDT by Josse Olson
== END 2023-08-14 23:00 | disposition home or self-care (01) ==
LOC: ER 20:37
DX: R07.89 Other chest pain (principal); R11.2 Nausea with vomiting, unspecified; I10 Essential (primary) hypertension; F17.210 Nicotine dependence, cigarettes, uncomplicated; Z86.73 Personal history of transient ischemic attack (TIA), and cerebral infarction without residual deficits; Z28.310 Unvaccinated for COVID-19
CPT/HCPCS: 93005; 96372; 99285; J2550; Q0162

== ENCOUNTER 2023-08-19 16:24 | Emergency (ER) | payer OTHER ==
[2023-08-19] MEDS ORDERED: ONDANSETRON 4 MG (ODT) TAB ONE (16:51)
--- NOTE | 2023-08-19 16:55 | ER ---
Nurse's Notes [facility] Name: Geetha Khan Age: 48 yrs Sex: Female : 1975 Arrival Date: 08/19/2023 Time: 16:24 Bed 18 Private MD: Diagnosis: Nausea with vomiting, unspecified Presentation: 08/18 16:31 Chief complaint: EMS states: toned out for headache, n/v/d. Coronavirus screen: Vaccine me1 status: Patient reports being unvaccinated. Ebola Screen: No symptoms or risks identified at this time. Initial Sepsis Screen: Does the patient meet any 2 criteria? No. Patient's initial sepsis screen is negative. Does the patient have a suspected source of infection? No. Patient's initial sepsis screen is negative. Risk Assessment: Do you want to hurt yourself or someone else? Patient reports no desire to harm self or others. Onset of symptoms is unknown. 16:31 Method Of Arrival: [place] [facility] [place] Acuity: CORRINA 4 me1 Triage Assessment: 16:33 General: Appears uncomfortable, unkempt, Behavior is calm, cooperative, appropriate for mn1 age, Reports headache, n/v/d. Pain: Complains of pain in head Pain does not radiate. Pain currently is 8 out of 10 on a pain scale. Quality of pain is described as aching, Pain began gradually, Is continuous. EENT: No signs and/or symptoms were reported regarding the EENT system. Neuro: Level of Consciousness is awake, alert, obeys commands, Oriented to person, place, time, situation, Appropriate for age. Neuro: Reports headache. Cardiovascular: Patient's skin is warm and dry. Respiratory: Airway is patent Respiratory effort is even, unlabored, Respiratory pattern is regular, symmetrical. GI: Reports diarrhea, nausea, vomiting. : No signs and/or symptoms were reported regarding the genitourinary system. Derm: Skin is intact, is healthy with good turgor, Skin is pink, warm \T\ dry. Musculoskeletal: left sided weakness from old CVA. 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 - Infectious Disease History:: Denies. - Social history:: Smoking status: Patient reports the use of cigarette tobacco products, smokes one pack cigarettes per day. Screenin:36 [facility] ED Fall Risk Assessment (Adult) History of falling in the last 3 months, me1 including since admission No falls in past 3 months (0 pts) Confusion or Disorientation No (0 pts) Intoxicated or Sedated No (0 pts) Impaired Gait Yes (1 pt) Mobility Assist Device Used Yes (1 pt) Altered Elimination Yes (1 pt) Score/Fall Risk Level 0 - 2 = Low Risk Maintained a safe environment, Provided non-skid footwear, Hourly rounding (assess needs \T\ fall precautionary measures) done. Abuse screen: Denies threats or abuse. Nutritional screening: No deficits noted. Tuberculosis screening: No symptoms or risk factors identified. Assessment: 16:36 General: See triage assessment. . me1 Vital Signs: 16:31 BP 114 / 85; Pulse 91; Resp 16; Temp 98.1; Pulse Ox 100% on R/A; Weight 65.77 kg; me1 Height 5 ft. 0 in. ; Pain 8/10; 16:45 BP 119 / 82; Pulse 86; Resp 15; Pulse Ox 100% on R/A; me1 16:31 Body Mass Index 28.32 (65.77 kg, 152.4 cm) me1 16:31 Pain Scale: Adult mn1 ED Course: 16:27 Patient arrived in ED. sb4 16:27 Kalli Bradshaw PA-C is PHCP. sb4 16:27 Glenis Yu MD is Attending Physician. sb4 16:31 Nohemy Clark, YANETH is Primary Nurse. me1 16:33 Triage completed. me1 16:33 Arm band placed on Patient placed in an exam room. me1 16:36 Patient has correct armband on for positive identification. Bed in low position. Call me1 light in reach. Side rails up X2. Provided Education on: POC. Verbalized understanding. . Client placed on continuous cardiac and pulse oximetry monitoring. NIBP monitoring applied. Pulse ox on. NIBP on. 16:36 No provider procedures requiring assistance completed. me1 17:08 Patient did not have IV access during this emergency room visit. me1 Administered Medications: 16:53 Drug: Ondansetron PO 4 mg PO once Route: PO; me1 17:07 Follow up: Response: No adverse reaction; Nausea is decreased me1 Medication: 16:36 VIS not applicable for this client. me1 Outcome: 16:54 Discharge ordered by . srinivasan 17:11 Discharged to home via wheelchair, with family, me1 17:11 Condition: stable 17:11 Discharge instructions given to patient, Instructed on discharge instructions, follow up and referral plans. medication usage, Demonstrated understanding of instructions, follow-up care, medications, Prescriptions given X 1, 17:31 Patient left the ED. me1 Signatures: Kalli Bradshaw PA-C PAHermes parish4 Nohemy Clark, RN RN me1
--- NOTE | 2023-08-19 16:55 | EDPHYS ---
Physician Documentation [facility] Name: Geetha Khan Age: 48 yrs Sex: Female : 1975 Arrival Date: 08/19/2023 Time: 16:24 Bed 18 Private MD: ED Physician Glenis Yu HPI: 08/18 16:59 This 48 yrs old Female presents to ER via EMS with complaints of sb4 Nausea/Vomiting/Diarrhea. 16:59 Patient reports that she has been dealing with stomach bug for a few days now. She was sb4 seen here yesterday, had workup done, given Zofran and improved and discharged. States that she started feeling poorly again this morning. States that Zofran initially helped and is requesting more. Denies any further episodes of diarrhea. 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 - Infectious Disease History:: Denies. - Social history:: Smoking status: Patient reports the use of cigarette tobacco products, smokes one pack cigarettes per day. ROS: 16:59 Constitutional: Negative for fever, chills, and weight loss, sb4 16:59 Abdomen/GI: Positive for nausea, vomiting, and diarrhea, 16:59 All other systems are negative, Exam: 16:59 Constitutional: This is a well developed, well nourished patient who is awake, alert, sb4 and in no acute distress. Head/Face: Normocephalic, atraumatic. Eyes: Extra-ocular motions intact. Periorbital areas with no swelling, redness, or edema. ENT: Mucous membranes moist. Abdomen/GI: Soft, non-tender, no distension. Skin: Warm, dry with normal turgor. Normal color with no rashes, no lesions, and no evidence of cellulitis. Vital Signs: 16:31 BP 114 / 85; Pulse 91; Resp 16; Temp 98.1; Pulse Ox 100% on R/A; Weight 65.77 kg; me1 Height 5 ft. 0 in. ; Pain 8/10; 16:45 BP 119 / 82; Pulse 86; Resp 15; Pulse Ox 100% on R/A; me1 16:31 Body Mass Index 28.32 (65.77 kg, 152.4 cm) me1 16:31 Pain Scale: Adult me1 MDM: 16:27 Patient medically screened. sb4 17:00 Data reviewed: vital signs, nurses notes, EMS record, and as a result, I will discharge sb4 patient. Counseling: I had a detailed discussion with the patient and/or guardian regarding the historical points, exam findings, and any diagnostic results supporting the discharge/admit diagnosis, to return to the emergency department if symptoms worsen or persist or if there are any questions or concerns that arise at home. 08/18 16:28 Order name: EKG; Complete Time: 16:28 sb4 Administered Medications: 16:53 Drug: Ondansetron PO 4 mg PO once Route: PO; [facility] [place] 17:07 Follow up: Response: No adverse reaction; Nausea is decreased me1 Disposition: 20:07 Co-signature as Attending Physician, Glenis Yu MD I agree with the assessment and gb1 plan of care. I reviewed the patient's care provided by the Advanced Practice Provider and agree with the diagnosis and treatment plan. Disposition Summary: 08/19/23 16:54 Discharge Ordered Notes: Location: Home sb4 Problem: an ongoing problem sb4 Symptoms: have improved sb4 Condition: Stable sb4 Diagnosis - Nausea with vomiting, unspecified sb4 Followup: sb4 - With: Emergency Department - When: As needed - Reason: Trouble breathing, Worsening of condition Discharge Instructions: - Discharge Summary Sheet sb4 - Nausea and Vomiting, Adult sb4 Forms: - Patient Portal Instructions sb4 - Leadership Thank You Letter sb4 Prescriptions: - ondansetron HCl 4 mg Oral tablet - take 1 tablet ORAL route every 6 hours; 20 tablet; Refills: 0, Product sb4 Selection Permitted Signatures: Kalli Bradshaw PA-C PA-C sb4 Nohemy Clark RN RN az1 Glenis Yu MD MD gb1 Corrections: (The following items were deleted from the chart) 16:51 16:28 EKG - Nurse/Tech ordered. sb4 sb4
[2023-08-19 17:41] VITALS: BP 119/82; TEMP 98.1; O2SAT 100
--- NOTE | 2023-08-20 13:22 | EKG ---
Test Date: 2023-08-18 Test Time: 20:12:59 Crew Supervisor: LINSEY MEASUREMENT RESULTS: Intervals: Rate: 60 [place]: 208 QRSD: 102 QT: 444 QTc: 444 [place]: P: 41 [place]: 208 QRS: -4 T: 155 INTERPRETIVE STATEMENTS: Normal sinus rhythm Left ventricular hypertrophy with repolarization abnormality Abnormal ECG Compared to ECG 08/14/2023 21:05:31 Sinus bradycardia no longer present Electronically Signed On 08-20-23 13:19:42 CDT by Josse Olson
== END 2023-08-19 17:31 | disposition home or self-care (01) ==
LOC: ER 16:24
DX: R11.2 Nausea with vomiting, unspecified (principal); R19.7 Diarrhea, unspecified
CPT/HCPCS: 93005; 99284; Q0162

== ENCOUNTER 2023-08-26 19:05 | Emergency (ER) | payer OTHER ==
[2023-08-26] MEDS ORDERED: METHYLPREDNISOLONE 125 MG INJ ONE (20:17)
[2023-08-26] MEDS ORDERED: ALBUTEROL 2.5 MG/3 ML NEB SOL ONE (20:17)
[2023-08-26] MEDS ORDERED: IPRATROPIUM BROM 0.5MG/2.5ML ONE (20:17)
[2023-08-26 20:25] LABS: Absolute Lymphocytes (CBC) 1.1 K/uL (0.7-4.9); Absolute Monocytes 0.5 K/uL (0.1-1.3); Absolute Neutrophil 3.9 K/uL (1.8-8.0); Basophils % 0.3 % (0-1.3); Eosinophils % 0.8 % (0-4.4); Hematocrit 33.4 % (36.0-45.0); Hemoglobin 11.3 g/dL (12.0-15.0); Lymphocytes % 19.6 % (15.3-44.8); MCH 32.8 pg (27.0-35.0); MCHC 33.9 g/dL (32.0-36.0); MCV 96.7 fL (80-100); MPV 6.8 fL (7.6-11.3); Monocytes % 8.8 % (3.3-12.3); Neutrophils % 70.5 % (41.7-73.7); Platelets 260 thou/uL (152-406); RBC Red Blood Cell Count 3.46 M/uL (3.86-4.86); Red Cell Distribution Width 15.3 % (12.1-15.2)
[2023-08-26 20:43] LABS: Anion Gap 7.8 mEq/L (5.0-15.0); Potassium 2.8 mEq/L (3.5-5.1); Troponin High Sensitivity 17.4 pg/mL (<58.9)
--- NOTE | 2023-08-26 20:56 | RAD REPORT ---
EXAM DESCRIPTION: [facility] Single View08/26/2023 8:22 pm CLINICAL HISTORY: Chest pain COMPARISON: August 25, 2023 FINDINGS: The lungs appear clear of acute infiltrate. The heart is mildly to moderately enlarged. Old left rib fractures IMPRESSION: No acute abnormalities displayed
--- NOTE | 2023-08-26 21:22 | ER ---
Nurse's Notes [facility] Name: Geetha Khan Age: 48 yrs Sex: Female : 1975 Arrival Date: 08/26/2023 Time: 19:05 Bed 2 Private MD: Diagnosis: COPD/ Chronic obstructive pulmonary disease with (acute) exacerbation Presentation: 08/25 19:06 Chief complaint: EMS states: WANTS TO GET CHECKED AGAIN. Coronavirus screen: At this bp time, the client does not indicate any symptoms associated with coronavirus-19. Ebola Screen: No symptoms or risks identified at this time. Initial Sepsis Screen: Does the patient meet any 2 criteria? No. Patient's initial sepsis screen is negative. Does the patient have a suspected source of infection? No. Patient's initial sepsis screen is negative. Risk Assessment: Do you want to hurt yourself or someone else? Patient reports no desire to harm self or others. Onset of symptoms is unknown. 19:06 Method Of Arrival: EMS: [facility] bp 19:06 Acuity: CORRINA 3 bp Triage Assessment: 19:07 General: Appears in no apparent distress. Behavior is cooperative, anxious. bp Historical: - Allergies: 19:07 Aspirin; bp 19:07 CRANBERRY; bp 19:07 FISH PRODUCT DERIVATIVES; bp 19:07 GRAPEFRUIT; bp 19:07 mushrooms; bp - PMHx: 19:07 Asthma; Cerebrovascular accident; COPD; Hypertension; Left arm paralysis and left leg bp weakness from previous CVA; Myocardial infarction; Seizures; Thyroid problem; - Immunization history:: Adult Immunizations unknown. - Infectious Disease History:: Denies. - Social history:: Smoking status: Patient reports the use of cigarette tobacco products, unknown amount. Screenin:[address] [facility] ED Fall Risk Assessment (Adult) History of falling in the last 3 months, vc1 including since admission Yes- fall prone (multiple falls) (3 pts) Confusion or Disorientation No (0 pts) Intoxicated or Sedated No (0 pts) Impaired Gait Yes (1 pt) Mobility Assist Device Used Yes (1 pt) Altered Elimination No (0 pt) Score/Fall Risk Level 3 or more points = High Risk Oriented to surroundings, Maintained a safe environment, Educated pt \T\ family on fall prevention, incl call for assistance when getting out of bed. Abuse screen: Denies threats or abuse. Nutritional screening: No deficits noted. Tuberculosis screening: No symptoms or risk factors identified. 21:[address] [facility] ED Fall Risk Assessment (Adult) History of falling in the last 3 months, kd4 including since admission Yes- fall prone (multiple falls) (3 pts) Confusion or Disorientation No (0 pts) Intoxicated or Sedated No (0 pts) Impaired Gait Yes (1 pt) Mobility Assist Device Used Yes (1 pt) Score/Fall Risk Level 3 or more points = High Risk Oriented to surroundings, Maintained a safe environment, Educated pt \T\ family on fall prevention, incl call for assistance when getting out of bed. Assessment: 20:45 General: Appears in no apparent distress. comfortable, unkempt, Behavior is calm, vc1 cooperative, appropriate for age. Pain: Complains of pain in chest Pain does not radiate. Pain currently is 10 out of 10 on a pain scale. Quality of pain is described as sharp, Pain began suddenly, Is continuous. Neuro: Level of Consciousness is awake, alert, obeys commands, Oriented to person, place, time, situation, Appropriate for age. Cardiovascular: Heart tones S1 S2 Patient's skin is warm and dry. Respiratory: Airway is patent Respiratory effort is even, unlabored, Respiratory pattern is regular, symmetrical, Breath sounds with wheezes bilaterally. GI: No deficits noted. No signs and/or symptoms were reported involving the gastrointestinal system. : No deficits noted. No signs and/or symptoms were reported regarding the genitourinary system. EENT: No deficits noted. No signs and/or symptoms were reported regarding the EENT system. Derm: Skin is intact, Skin temperature is cool. Musculoskeletal: Reports left sided paralysis. 21:38 General:. kd4 21:43 Neuro: No deficits noted. Oriented to person, place, time, situation. Respiratory: kd4 Airway is patent Respiratory effort is even, unlabored. 21:45 Reassessment: Patient and/or family updated on plan of care and expected duration. Pain vc1 level reassessed. Patient is alert, oriented x 3, equal unlabored respirations, skin warm/dry/pink. Patient states feeling better. Patient states symptoms have improved. 21:49 Reassessment:. kd4 21:49 Reassessment: D/c instruction given to patient, she verbalizes understanding, education kd4 provided. iv d/c. patient awaiting for nut picker. wheel out to waiting room via w/c. vss, ok to d/c per MD. Vital Signs: 19:06 BP 133 / 77; Pulse 70; Resp 16; Temp 98; Pulse Ox 99% ; bp 20:47 BP 138 / 86; Pulse 69; Resp 19; Pulse Ox 95% ; vc1 21:36 BP 139 / 91; Pulse 70; Resp 18; Temp 98.1; Pulse Ox 97% on R/A; Pain 0/10; kd4 21:36 Pain Scale: Adult kd4 Rembert Coma Score: 21:43 Eye Response: spontaneous(4). Motor Response: obeys commands(6). Verbal Response: kd4 oriented(5). Total: 15. ED Course: 19:06 Patient arrived in ED. bp 19:06 Kathy Kerns FNP-C is PHCP. kb 19:06 Kye De Anda MD is Attending Physician. kb 19:07 Triage completed. bp 19:07 Arm band placed on. bp 20:00 Patient has correct armband on for positive identification. Bed in low position. Call vc1 light in reach. 20:00 Provided Education on: cessation of smoking. vc1 20:13 Syeda Bruce, RN is Primary Nurse. vc1 20:15 Inserted saline lock: 22 gauge in right antecubital area, using aseptic technique. vc1 Blood collected. 20:23 XRAY Chest (1 view) In Process Unspecified. EDMS 21:43 IV discontinued. kd4 21:46 No provider procedures requiring assistance completed. IV discontinued, intact, vc1 bleeding controlled, No redness/swelling at site. Pressure dressing applied. Administered Medications: 20:40 Drug: Ipratropium Inhalation Aerosol 0.5 mg Inhalation once Route: Inhalation; vc1 21:29 Follow up: Response: No adverse reaction kd4 20:40 Drug: MethylPrednisoLONE IVP 125 mg IVP once Route: IVP; Site: right antecubital; vc1 21:29 Follow up: Response: No adverse reaction kd4 20:41 Drug: Albuterol Inhalation 2.5 mg Inhalation once Route: Inhalation; vc1 21:29 Follow up: Response: No adverse reaction kd4 21:28 Drug: Potassium Chloride PO 40 mEq PO once Route: PO; kd4 21:28 Follow up: Response: No adverse reaction kd4 Medication: 21:46 VIS not applicable for this client. vc1 Outcome: 21:22 Discharge ordered by MD. lozano 21:46 Discharged to home via wheelchair, vc1 :46 Condition: good 21:46 Discharge instructions given to patient, Instructed on discharge instructions, follow up and referral plans. Demonstrated understanding of instructions, follow-up care, :47 Patient left the ED. vc1 Signatures: Dispatcher [employer] EDKathy Contreras, THREADING MACHINE OPERATOR-Kelly PLATT-Wayne Frost, RN RN bp Syeda Bruce RN RN vc1 Jolly Mcintyre RN RN kd4
--- NOTE | 2023-08-26 21:22 | EDPHYS ---
Physician Documentation [facility] Name: Geetha Khan Age: 48 yrs Sex: Female : 1975 Arrival Date: 08/26/2023 Time: 19:05 Bed 2 Private MD: ED Physician Kye De Anda HPI: 08/25 23:12 This 48 yrs old Female presents to ER via EMS with complaints of CHRONIC HEALTH CONCERN.kb 23:12 Pt is a 48 year old female who presents for chest pain and shortness of breath that kb started today. Denies cough, congestion, fever. States the chest pain is similar to previous episodes and is to center of chest. 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 - Infectious Disease History:: Denies. - Social history:: Smoking status: Patient reports the use of cigarette tobacco products, unknown amount. ROS: 23:12 Constitutional: As per HPI kb Exam: 21:22 Constitutional: This is a well developed, well nourished patient who is awake, alert, kb and in no acute distress. Head/Face: Normocephalic, atraumatic. ENT: Moist Mucous membranes Cardiovascular: Regular rate Abdomen/GI: Soft, non-tender. No distention Skin: Warm, dry with normal turgor. Normal color. MS/ Extremity: Pulses equal, no cyanosis. Neurovascular intact. Full, normal range of motion. Neuro: Awake and alert, GCS 15, oriented to person, place, time, and situation. Moves all extremities. Normal gait. 21:22 ECG was reviewed by the Attending Physician. Vital Signs: 19:06 BP 133 / 77; Pulse 70; Resp 16; Temp 98; Pulse Ox 99% ; bp 20:47 BP 138 / 86; Pulse 69; Resp 19; Pulse Ox 95% ; vc1 21:36 BP 139 / 91; Pulse 70; Resp 18; Temp 98.1; Pulse Ox 97% on R/A; Pain 0/10; kd4 21:36 Pain Scale: Adult kd4 [place] Coma Score: 21:43 Eye Response: spontaneous(4). Motor Response: obeys commands(6). Verbal Response: kd4 oriented(5). Total: 15. MDM: 19:07 Patient medically screened. kb 23:13 Differential diagnosis: abnormal ekg, acute MT, COPD exacerbation, pneumonia. Data kb reviewed: vital signs, nurses notes. Historians other than the Patient: EMS: [facility]. Counseling: I had a detailed discussion with the patient and/or guardian regarding the historical points, exam findings, and any diagnostic results supporting the discharge/admit diagnosis, lab results, radiology results, the need for outpatient follow up, a family practitioner, to return to the emergency department if symptoms worsen or persist or if there are any questions or concerns that arise at home. 08/25 19:53 Order name: Basic Metabolic Panel; Complete Time: 20:45 kb 08/25 19:53 Order name: CBC with Diff; Complete Time: 20:45 kb 08/25 19:53 Order name: Troponin HS; Complete Time: 20:45 kb 08/25 19:53 Order name: XRAY Chest (1 view); Complete Time: 20:59 kb 08/25 19:53 Order name: EKG; Complete Time: 19:54 kb 08/25 19:53 Order name: Cardiac monitoring; Complete Time: 20:41 kb 08/25 19:53 Order name: EKG - Nurse/Tech; Complete Time: 20:45 kb 08/25 19:53 Order name: IV Saline Lock; Complete Time: 20:13 kb 08/25 19:53 Order name: Labs collected and sent; Complete Time: 20:13 kb 08/25 19:53 Order name: O2 Per Protocol; Complete Time: 20:13 kb 08/25 19:53 Order name: O2 Sat Monitoring; Complete Time: 20:13 kb EC:22 Rate is 68 beats/min. Rhythm is regular. LA interval is normal at 92 msec. QRS interval kb is normal at 463 msec. Administered Medications: 20:40 Drug: Ipratropium Inhalation Aerosol 0.5 mg Inhalation once Route: Inhalation; vc1 21:29 Follow up: Response: No adverse reaction kd4 20:40 Drug: MethylPrednisoLONE IVP 125 mg IVP once Route: IVP; Site: right antecubital; vc1 21:29 Follow up: Response: No adverse reaction kd4 20:41 Drug: Albuterol Inhalation 2.5 mg Inhalation once Route: Inhalation; vc1 21:29 Follow up: Response: No adverse reaction kd4 21:28 Drug: Potassium Chloride PO 40 mEq PO once Route: PO; kd4 21:28 Follow up: Response: No adverse reaction kd4 Disposition Summary: 08/26/23 21:22 Discharge Ordered Notes: Location: Home kb Condition: Stable kb Diagnosis - COPD/ Chronic obstructive pulmonary disease with (acute) exacerbation kb Followup: kb - With: Emergency Department - When: As needed - Reason: Worsening of condition Followup: kb - With: Private Physician - When: 2 - 3 days - Reason: Recheck today's complaints, Continuance of care, Re-evaluation by your physician Discharge Instructions: - Discharge Summary Sheet kb - Chronic Obstructive Pulmonary Disease Exacerbation kb Forms: - Medication Reconciliation Form kb - Antibiotic Education kb - Prescription Opioid Use kb - Patient Portal Instructions kb - Leadership Thank You Letter kb Prescriptions: - Prednisone 20 mg Oral Tablet - take 1 tablet ORAL route once daily for 5 days; 5 tablet; Refills: 0, Product kb Selection Permitted Signatures: Dispatcher [employer] Kathy Hines, KITCH[employer] HEL[employer] HANDYMAN-C K[employer] HANDYMAN-Wayne Frost, RN RN bp Syeda Bruce RN RN vc1 Jolly Mcintyre RN RN kd4
[2023-08-26] MEDS ORDERED: POTASSIUM CL SA 10 MEQ TAB PO ONE (21:25)
[2023-08-26 22:41] VITALS: BP 139/91; TEMP 98.1; O2SAT 97
--- NOTE | 2023-08-27 15:07 | EKG ---
Test Date: 2023-08-26 Test Time: 20:38:22 Probation And Parole Officer: ROBELK MEASUREMENT RESULTS: Intervals: Rate: 68 IA: 206 QRSD: 92 QT: 436 QTc: 463 [place]: P: 44 IA: 206 QRS: 8 T: 146 INTERPRETIVE STATEMENTS: Normal sinus rhythm Anterior infarct, age undetermined ST & T wave abnormality, consider inferolateral ischemia Abnormal ECG Compared to ECG 08/25/2023 21:08:53 Myocardial infarct finding now present ST (T wave) deviation now present Possible ischemia now present First degree AV block no longer present Left ventricular hypertrophy no longer present Early repolarization no longer present Electronically Signed On 08-27-23 15:05:34 CDT by Josse Olson
== END 2023-08-26 21:47 | disposition home or self-care (01) ==
LOC: ER 19:05
DX: J44.1 Chronic obstructive pulmonary disease with (acute) exacerbation (principal); F17.210 Nicotine dependence, cigarettes, uncomplicated
CPT/HCPCS: 93005; 85025; 80048; 36415; 84484; 71045; 96374; 99285; J7613; J7644; J2919

== ENCOUNTER 2023-08-29 18:37 | Observation (INO) | payer OTHER ==
[2023-08-29 19:40] LABS: Absolute Monocytes 0.3 K/uL (0.1-1.3); Absolute Neutrophil 10.5 K/uL (1.8-8.0); Basophils % 0.3 % (0-1.3); Eosinophils % 0.2 % (0-4.4); Hematocrit 35.3 % (36.0-45.0); Lymphocytes % 8.5 % (15.3-44.8); MCH 32.8 pg (27.0-35.0); MCV 96.7 fL (80-100); MPV 6.3 fL (7.6-11.3); Monocytes % 2.4 % (3.3-12.3); Neutrophils % 88.6 % (41.7-73.7); Platelets 397 thou/uL (152-406); RBC Red Blood Cell Count 3.65 M/uL (3.86-4.86)
[2023-08-29 19:50] LABS: PT Prothrombin Time 11.9 SECONDS (9.5-12.5); Protime INR 1.08
--- NOTE | 2023-08-29 20:10 | RAD REPORT ---
EXAM DESCRIPTION: RADChest Single View08/29/2023 7:19 pm CLINICAL HISTORY: CHEST PAIN COMPARISON: Chest Single View dated 08/26/2023; Chest Single View dated 08/25/2023; Chest Single View d ated 08/21/2023; Chest Single View dated 08/18/2023 TECHNIQUE: Portable AP view of the chest. FINDINGS: The lungs are clear. 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 No pneumothorax or effusion. The cardiomediastinal contours are unremarkable. IMPRESSION: No acute cardiopulmonary process.
[2023-08-29 20:15] LABS: ALT/SGPT 29 U/L (13-56); Albumin 3.3 g/dL (3.4-5.0); Albumin/Globulin Ratio 0.9 (1.1-1.8); Alkaline Phosphatase 180 U/L (45-117); Anion Gap 7.8 mEq/L (5.0-15.0); BUN Blood Urea Nitrogen 6 mg/dL (7-18); Bicarbonate 22 mEq/L (21-32); Bilirubin Total 0.3 mg/dL (0.2-1.0); Globulin 3.5 g/dL (2.3-3.5); Glomerular Filtration Rate 65 ml/min (=/>90); Glucose Level 107 mg/dL (74-106); Magnesium 1.1 mg/dL (1.6-2.4); NT PRO-BNP 4713 pg/mL (<125); Potassium 3.8 mEq/L (3.5-5.1); Protein, Total 6.8 g/dL (6.4-8.2); Sodium Level 135 mEq/L (136-145); Troponin High Sensitivity 18.7 pg/mL (<58.9)
[2023-08-29 20:17] LABS: AST/SGOT < 10 U/L (15-37); Bilirubin Direct < 0.2 mg/dL (0-0.2); Bilirubin Indirect, Calculated 0.1 mg/dL (0.2-0.8)
--- NOTE | 2023-08-29 20:25 | ER ---
Nurse's Notes [facility] Name: Geetha Khan Age: 48 yrs Sex: Female : 1975 Arrival Date: 08/29/2023 Time: 18:37 Bed 19 Private MD: Diagnosis: Chest pain, unspecified;Weakness;Hypomagnesemia Presentation: 08/28 18:43 Chief complaint: EMS states: called out for chest pain. Coronavirus screen: At this as6 time, the client does not indicate any symptoms associated with coronavirus-19. Ebola Screen: No symptoms or risks identified at this time. Risk Assessment: Do you want to hurt yourself or someone else? Patient reports no desire to harm self or others. Onset of symptoms was August 29, 2023. 18:43 Method Of Arrival: EMS: [facility] as6 18:43 Acuity: CORRINA 3 as6 18:56 Initial Sepsis Screen: Does the patient meet any 2 criteria? No. Patient's initial as6 sepsis screen is negative. Does the patient have a suspected source of infection? No. Patient's initial sepsis screen is negative. Historical: - Allergies: 18:44 Aspirin; as6 18:44 CRANBERRY; as6 18:44 FISH PRODUCT DERIVATIVES; as6 18:44 GRAPEFRUIT; as6 18:44 mushrooms; as6 - PMHx: 18:44 Asthma; Cerebrovascular accident; COPD; Hypertension; Left arm paralysis and left leg as6 weakness from previous CVA; Myocardial infarction; Seizures; Thyroid problem; - Immunization history:: Adult Immunizations not up to date. - Infectious Disease History:: Denies. - Social history:: Smoking status: Patient reports the use of cigarette tobacco products, smokes one pack cigarettes per day. - Family history:: not pertinent. Screenin:40 [facility] ED Fall Risk Assessment (Adult) History of falling in the last 3 months, lc8 including since admission No falls in past 3 months (0 pts) Confusion or Disorientation No (0 pts) Intoxicated or Sedated No (0 pts) Impaired Gait Yes (1 pt) Mobility Assist Device Used No (0 pt) Altered Elimination No (0 pt) Score/Fall Risk Level 3 or more points = High Risk Oriented to surroundings, Maintained a safe environment, Hourly rounding (assess needs \T\ fall precautionary measures) done. Abuse screen: Denies threats or abuse. Denies injuries from another. Nutritional screening: No deficits noted. Tuberculosis screening: No symptoms or risk factors identified. Assessment: 19:30 General: Appears in no apparent distress. Behavior is calm, cooperative, Reports Denies.ha1 19:30 Pain: Complains of pain in chest Pain does not radiate. Pain Quality of pain is ha1 described as pressure. Neuro: Level of Consciousness is awake, alert, obeys commands, Oriented to person, place, time, situation. Cardiovascular: Reports chest pain, Heart tones S1 S2 present Capillary refill < 3 seconds Patient's skin is warm and dry. Rhythm is sinus rhythm. Respiratory: Airway is patent Respiratory effort is even, unlabored, Respiratory pattern is regular, symmetrical. GI: No signs and/or symptoms were reported involving the gastrointestinal system. : No deficits noted. No signs and/or symptoms were reported regarding the genitourinary system. Musculoskeletal: deficient to left side. 20:00 Reassessment: Patient and/or family updated on plan of care and expected duration. Pain lc8 level reassessed. Patient is alert, oriented x 3, equal unlabored respirations, skin warm/dry/pink. 21:00 Reassessment: Patient and/or family updated on plan of care and expected duration. Pain lc8 level reassessed. Patient is alert, oriented x 3, equal unlabored respirations, skin warm/dry/pink. 22:00 Reassessment: Patient and/or family updated on plan of care and expected duration. Pain lc8 level reassessed. Patient is alert, oriented x 3, equal unlabored respirations, skin warm/dry/pink. Patient states feeling better. Patient states symptoms have improved. Vital Signs: 18:56 BP 130 / 91; Pulse 64; Resp 18; Temp 97.5; Pulse Ox 100% ; Weight 68.04 kg; Height 5 as6 ft. 2 in. ; Pain 10/10; 20:00 BP 133 / 84; Pulse 63; Resp 19; Pulse Ox 100% on R/A; lc8 21:00 BP 151 / 92; Pulse 59; Resp 17; Pulse Ox 100% ; lc8 22:00 BP 154 / 94; Pulse 60; Resp 17; Pulse Ox 100% ; lc8 18:56 Body Mass Index 27.44 (68.04 kg, 157.48 cm) as6 18:56 Pain Scale: Adult as6 ED Course: 18:38 Patient arrived in ED. mg5 18:39 Michael Grimm MD is Attending Physician. juan diego 18:44 Triage completed. as6 18:44 Arm band placed on. as6 19:12 Aydee Ulrich, RN is Primary Nurse. ha1 19:20 XRAY Chest (1 view) In Process Unspecified. EDMS 19:30 Inserted saline lock: 22 gauge in right wrist, using aseptic technique. Blood collected.lc8 19:34 Basic Metabolic Panel Sent. ha1 19:34 CBC with Diff Sent. ha1 19:34 LFT's Sent. ha1 19:34 Magnesium Sent. ha1 19:34 NT PRO-BNP Sent. ha1 19:34 PT-INR Sent. ha1 19:34 Troponin HS Sent. ha1 20:18 Urinalysis w/ reflexes Sent. vk 20:24 Nahum Tejada MD is Hospitalizing Provider. juan diego 22:05 Urine Culture Sent. vk 22:05 Urine collected: clean catch specimen, carol ann colored. vk 22:41 No provider procedures requiring assistance completed. Patient admitted, IV remains in lc8 place. 22:42 Patient has correct armband on for positive identification. Adult w/ patient. Provided [facility] Education on: need for admit. Administered Medications: 18:58 CANCELLED (Duplicate Order): aspirinchewable tablet 81 mg PO once [facility] 20:50 Drug: Rocephin IV 1 grams IV at per protocol once; Given slow IV push per pharmacy ha1 instructions Route: IV; Rate: per protocol; Site: right wrist; 21:00 Follow up: Response: No adverse reaction; IV Status: Completed infusion; IV Intake: [id number] 20:55 Drug: Famotidine IVP 20 mg IVP once; dilute with 10 mL 0.9% NaCl; give over 2 minutes ha1 Route: IVP; Site: right wrist; 21:10 Follow up: Response: No adverse reaction; Marked relief of symptoms lc8 20:57 Drug: Magnesium Sulfate IVPB 1 grams IVPB once over 1 hrs Route: IVPB; Infused Over: 1 ha1 hrs; Site: right wrist; 22:00 Follow up: Response: No adverse reaction; IV Status: Completed infusion; IV Intake: lc8 100ml Medication: 22:43 VIS not applicable for this client. lc8 Intake: 21:00 IV: 50ml; Total: 50ml. lc8 22:00 IV: 100ml; Total: 150ml. lc8 Outcome: 20:25 Decision to Hospitalize by Provider. juan diego 22:41 Admitted to Med/surg accompanied by tech, family with patient, room 230, lc8 22:41 Condition: stable 22:41 Instructed on the need for admit, Demonstrated understanding of instructions, 22:46 Patient left the ED. lc8 Signatures: Dispatcher [employer] EDNM Michael Grimm MD MD cha Slawson, Ashby, RN RN as6 Aydee Ulrich RN RN [facility] [place] mg5 Chata Gibbons LaBrisha, RN RN lc8 Corrections: (The following items were deleted from the chart) 22:39 19:15 BP 133 / 84; Pulse 63bpm; Resp 19bpm; Pulse Ox 100% RA; lc8 lc8 22:45 22:44 Response: No adverse reaction; IV Status: Completed infusion; IV Intake: 50ml lc8 lc8
--- NOTE | 2023-08-29 20:26 | EDPHYS ---
Physician Documentation [facility] Name: Geetha Khan Age: 48 yrs Sex: Female : 1975 Arrival Date: 08/29/2023 Time: 18:37 Bed 19 Private MD: ED Physician Michael Grimm HPI: 08/28 19:00 This 48 yrs old Female presents to ER via EMS with complaints of PARAS PAIN. juan diego 19:00 The patient or guardian reports chest pain that is located primarily in the substernal juan [place]go area. Onset: just prior to arrival. 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 The pain does not radiate. Onset: The symptoms/episode began/occurred just prior to arrival. Associated signs and symptoms: The patient has no apparent associated signs or symptoms. The chest pain is described as a pressure. Modifying factors: The symptoms are alleviated by nothing. the symptoms are aggravated by nothing. Severity of pain: At its worst the pain was mild in the emergency department the pain is unchanged. Historical: - Allergies: 18:44 Aspirin; as6 18:44 CRANBERRY; as6 18:44 FISH PRODUCT DERIVATIVES; as6 18:44 GRAPEFRUIT; as6 18:44 mushrooms; as6 - PMHx: 18:44 Asthma; Cerebrovascular accident; COPD; Hypertension; Left arm paralysis and left leg as6 weakness from previous CVA; Myocardial infarction; Seizures; Thyroid problem; - Immunization history:: Adult Immunizations not up to date. - Infectious Disease History:: Denies. - Social history:: Smoking status: Patient reports the use of cigarette tobacco products, smokes one pack cigarettes per day. - Family history:: not pertinent. ROS: 19:00 Constitutional: Negative for fever, chills, and weight loss, Eyes: Negative for injury, [place] pain, redness, and discharge, ENT: Negative for injury, pain, and discharge, Neck: Negative for injury, pain, and swelling, Respiratory: Negative for shortness of breath, cough, wheezing, and pleuritic chest pain, Abdomen/GI: Negative for abdominal pain, nausea, vomiting, diarrhea, and constipation, Back: Negative for injury and pain, : Negative for injury, bleeding, discharge, and swelling, MS/Extremity: Negative for injury and deformity, Skin: Negative for injury, rash, and discoloration, Neuro: Negative for headache, weakness, numbness, tingling, and seizure, Psych: Negative for depression, anxiety, suicide ideation, homicidal ideation, and hallucinations, Allergy/Immunology: Negative for hives, rash, and allergies, Endocrine: Negative for neck swelling, polydipsia, polyuria, polyphagia, and marked weight changes, Hematologic/Lymphatic: Negative for swollen nodes, abnormal bleeding, and unusual bruising, 19:00 Cardiovascular: Positive for chest pain, of the chest, Exam: 19:00 Constitutional: This is a well developed, well nourished patient who is awake, alert, juan [place]go and in no acute distress. Head/Face: Normocephalic, atraumatic. Eyes: Pupils equal round and reactive to light, extra-ocular motions intact. Lids and lashes normal. Conjunctiva and sclera are non-icteric and not injected. Cornea within normal limits. Periorbital areas with no swelling, redness, or edema. ENT: Nares patent. No nasal discharge, no septal abnormalities noted. Tympanic membranes are normal and external auditory canals are clear. Oropharynx with no redness, swelling, or masses, exudates, or evidence of obstruction, uvula midline. Mucous membranes moist. Neck: Trachea midline, no thyromegaly or masses palpated, and no cervical lymphadenopathy. Supple, full range of motion without nuchal rigidity, or vertebral point tenderness. No Meningismus. Chest/axilla: Normal chest wall appearance and motion. Nontender with no deformity. No lesions are appreciated. Cardiovascular: Regular rate and rhythm with a normal S1 and S2. No gallops, murmurs, or rubs. Normal PMI, no JVD. No pulse deficits. Respiratory: Lungs have equal breath sounds bilaterally, clear to auscultation and percussion. No rales, rhonchi or wheezes noted. No increased work of breathing, no retractions or nasal flaring. Abdomen/GI: Soft, non-tender, with normal bowel sounds. No distension or tympany. No guarding or rebound. No evidence of tenderness throughout. Back: No spinal tenderness. No costovertebral tenderness. Full range of motion. Skin: Warm, dry with normal turgor. Normal color with no rashes, no lesions, and no evidence of cellulitis. MS/ Extremity: Pulses equal, no cyanosis. Neurovascular intact. Full, normal range of motion. Neuro: Awake and alert, GCS 15, oriented to person, place, time, and situation. Cranial nerves II-XII grossly intact. Motor strength 5/5 in all extremities. Sensory grossly intact. Cerebellar exam normal. Normal gait. Psych: Awake, alert, with orientation to person, place and time. Behavior, mood, and affect are within normal limits. 19:00 ECG was reviewed by the Attending Physician. Vital Signs: 18:56 BP 130 / 91; Pulse 64; Resp 18; Temp 97.5; Pulse Ox 100% ; Weight 68.04 kg; Height 5 as6 ft. 2 in. ; Pain 10/10; 20:00 BP 133 / 84; Pulse 63; Resp 19; Pulse Ox 100% on R/A; lc8 21:00 BP 151 / 92; Pulse 59; Resp 17; Pulse Ox 100% ; lc8 22:00 BP 154 / 94; Pulse 60; Resp 17; Pulse Ox 100% ; lc8 18:56 Body Mass Index 27.44 (68.04 kg, 157.48 cm) as6 18:56 Pain Scale: Adult as6 MDM: 18:39 Patient medically screened. juan diego 19:07 Differential diagnosis: abnormal EKG, acute myocardial infarction, acute pericarditis, [place] anxiety, chest wall pain, Cholelithiasis costochondritis, esophagitis, gastritis, gastroesophageal reflux disease (GERD), herpes zoster, pancreatitis, peptic ulcer disease, pneumonia, pulmonary embolus, stable angina, thoracic aortic disection, unstable angina. Differential Diagnosis altered mental status, sepsis, flu. HEART Score: History: Slightly Suspicious (0), ECG: Non specific repolarization disturbance / LBTB / PM (1), Age: > 45 and < 65 years (1), Risk Factors: > or = 3 Risk factors for atherosclerotic disease (2), [Hypercholesterolemia] [Hypertension] [+ Family HX] Troponin: < or = 1 x Normal Limit (0). The patient was not given aspirin in the Emergency Department. Not indicated due to patient's past medical history. YEVGENIY Risk Score: 1 - Three or more CAD risk factors, 1- Known CAD, TOTAL SCORE = 2. Data reviewed: vital signs, nurses notes, lab test result(s), EKG, radiologic studies, CT scan, plain films. Consideration of Admission/Observation Patient was admitted/placed on observation. Escalation of care including admission/observation considered. I considered the following discharge prescriptions or medication management in the emergency department Medications were administered in the Emergency Department. See MAR. Test considered but Not performed: CT: NO CT CHEST. 08/28 18:39 Order name: Basic Metabolic Panel; Complete Time: 20:21 [facility] 08/28 18:39 Order name: CBC with Diff [facility] 08/28 18:39 Order name: LFT's; Complete Time: 20:21 [facility] 08/28 18:39 Order name: Magnesium; Complete Time: 20:21 [facility] 08/28 18:39 Order name: NT PRO-BNP; Complete Time: 20:21 [facility] 08/28 18:39 Order name: PT-INR; Complete Time: 20:06 [facility] 08/28 18:39 Order name: Troponin HS; Complete Time: 20:21 [facility] 08/28 18:40 Order name: Urinalysis w/ reflexes; Complete Time: 20:30 [facility] 08/28 18:40 Order name: UDS [facility] 08/28 20:20 Order name: Tegretol Level [facility] 08/28 20:31 Order name: Urine Culture [facility] 08/28 20:33 Order name: Urinalysis w/ reflexes [facility] 08/28 20:33 Order name: CBC with Automated Diff [facility] 08/28 20:33 Order name: CBC with Automated Diff [facility] 08/28 20:33 Order name: Comprehensive Metabolic Panel [facility] 08/28 20:33 Order name: Comprehensive Metabolic Panel [facility] 08/28 20:33 Order name: Troponin High Sensitivity [facility] 08/28 20:33 Order name: Troponin High Sensitivity [facility] 08/28 20:33 Order name: Troponin High Sensitivity [facility] 08/28 20:33 Order name: Troponin High Sensitivity [facility] 08/28 20:51 Order name: CBC Smear Scan [facility] 08/28 18:39 Order name: XRAY Chest (1 view); Complete Time: 20:14 [facility] 08/28 18:39 Order name: EKG; Complete Time: 18:40 [facility] 08/28 18:39 Order name: Cardiac monitoring; Complete Time: 19:34 [facility] 08/28 18:39 Order name: EKG - Nurse/Tech; Complete Time: 19:03 [facility] 08/28 18:39 Order name: IV Saline Lock; Complete Time: 19:34 [facility] 08/28 18:39 Order name: Labs collected and sent; Complete Time: 19:34 [facility] 08/28 18:39 Order name: O2 Per Protocol; Complete Time: 19:34 [place] 08/28 18:39 Order name: O2 Sat Monitoring; Complete Time: 19:34 juan diego EC:00 Rate is 63 beats/min. Rhythm is regular. QRS [place] is Normal. [place] interval is normal. QRS [place] interval is normal. QT interval is normal. No Q waves. T waves are Normal. No ST changes noted. Clinical impression: NSR w/ Non-specific ST/T Changes, LVH, and No evidence of ischemia. Interpreted by me. Reviewed by me. Administered Medications: 18:58 CANCELLED (Duplicate Order): aspirinchewable tablet 81 mg PO once juan [place]go 20:50 Drug: Rocephin IV 1 grams IV at per protocol once; Given slow IV push per pharmacy ha1 instructions Route: IV; Rate: per protocol; Site: right wrist; 21:00 Follow up: Response: No adverse reaction; IV Status: Completed infusion; IV Intake: [id number] 20:55 Drug: Famotidine IVP 20 mg IVP once; dilute with 10 mL 0.9% NaCl; give over 2 minutes ha1 Route: IVP; Site: right wrist; 21:10 Follow up: Response: No adverse reaction; Marked relief of symptoms lc8 20:57 Drug: Magnesium Sulfate IVPB 1 grams IVPB once over 1 hrs Route: IVPB; Infused Over: 1 ha1 hrs; Site: right wrist; 22:00 Follow up: Response: No adverse reaction; IV Status: Completed infusion; IV Intake: lc8 100ml Disposition Summary: 08/29/23 20:25 Hospitalization Ordered Notes: Hospitalization Status: Observation [place] Provider: Nahum Tejada cha [facility] [place] Condition: Fair juan [place]go Problem: new juan [place] Symptoms: have improved juan [place] Bed/Room Type: Standard [place]an [place] Room Assignment: 230(08/29/23 20:36) rv1 Diagnosis - Chest pain, unspecified [place] - Weakness ju[place] - Hypomagnesemia juan [place]go Forms: - Medication Reconciliation Form juan [place]go - SBAR form ju[place] - Leadership Thank You Letter juan diego Signatures: Dispatcher [employer] Michael Meyer MD MD cha Slawson, Ashby RN RN as6 Aydee Ulrich RN RN ha1 Autumn Rodriguez rv1 Zena Howard RN lc8 Corrections: (The following items were deleted from the chart) 18:40 18:40 Urinalysis+U.LAB.BRZ ordered. EDMS EDMS 18:40 18:40 URINE DRUG SCREEN+UC.LAB.BRZ ordered. EDMS EDMS 18:58 18:39 Aspirin PO Chewable Tablet 81 mg PO once ordered. juan diego juan diego 20:36 20:25 juan [place]go rv1
[2023-08-29 20:29] LABS: Specific Gravity 1.026 (1.005-1.030); Sqamous Epithelial <5 /HPF (None Seen); Urine Bacteria <20 /HPF (<20); Urine Bilirubin NEGATIVE (Negative); Urine Blood Negative (Negative); Urine Clarity Turbid (Clear); Urine Color Light-Yellow (Yellow); Urine Culture Reflex Order NOT NEEDED; Urine Glucose NEGATIVE (Negative); Urine Ketones NEGATIVE (Negative); Urine Microscopic Reflex YN ORDER UMIC; Urine Nitrite NEGATIVE (Negative); Urine Protein TRACE (Negative); Urine Urobilinogen Normal (Normal); Urine WBC <5 /HPF (<5); Urine Yeast (Budding) Trace /HPF (None Seen)
[2023-08-29] MEDS ORDERED: ONDANSETRON 4 MG/2 ML VIAL IV PRN (20:29)
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
[2023-08-29 20:37] LABS: Barbiturates NEGATIVE (NEGATIVE); Benzodiazepines NEGATIVE (NEGATIVE); Cocaine NEGATIVE (NEGATIVE); METHAMPHETAM NEGATIVE (NEGATIVE); Methadone NEGATIVE (NEGATIVE); Opiates NEGATIVE (NEGATIVE); Phencyclidine NEGATIVE (NEGATIVE); THC Cannibis NEGATIVE (NEGATIVE)
[2023-08-29] MEDS ORDERED: FAMOTIDINE 20 MG/2 ML VIAL IV ONE (20:42)
[2023-08-29] MEDS ORDERED: MAGNESIUM SULFATE 1 gm IVPB 1 GM/100 ML BAG IV ONE (20:42)
[2023-08-29] MEDS ORDERED: CEFTRIAXONE 1000 MG/VIAL ONE (20:42)
[2023-08-29 20:51] LABS: Blood Morphology Comment NOT SEEN (NOT SEEN); Platelet Estimate ADEQ; White Blood Cell Scan OK (OK)
[2023-08-29 23:10] VITALS: O2SAT 98; BMI 23.9
[2023-08-29] MEDS: Magnesium Sulfate 2gm IVPB 2 G/50 ML BAG IV ONE (23:12)
[2023-08-29] MEDS: METOPROLOL TAR 25 MG TAB PO SCH (23:13)
[2023-08-29] MEDS: ATORVASTATIN 40 MG TAB PO SCH (23:13)
[2023-08-30] MEDS: ZOLPIDEM TARTRATE 5 MG TABLET PO PRN (00:48)
[2023-08-30 03:02] LABS: Absolute Basophils 0.1 K/uL (0-0.5); Absolute Eosinophils 0.1 K/uL (0-0.5); Absolute Monocytes 0.6 K/uL (0.1-1.3); Absolute Neutrophil 7.7 K/uL (1.8-8.0); Basophils % 0.7 % (0-1.3); Eosinophils % 1.3 % (0-4.4); Hematocrit 31.2 % (36.0-45.0); Hemoglobin 10.8 g/dL (12.0-15.0); Lymphocytes % 19.4 % (15.3-44.8); MCH 33.4 pg (27.0-35.0); MCHC 34.5 g/dL (32.0-36.0); MCV 96.8 fL (80-100); MPV 6.1 fL (7.6-11.3); Monocytes % 5.4 % (3.3-12.3); Neutrophils % 73.2 % (41.7-73.7); Nucleated Red Blood Cells % 0.1 % (0-0); Platelets 356 thou/uL (152-406); RBC Red Blood Cell Count 3.23 M/uL (3.86-4.86); Red Cell Distribution Width 14.7 % (12.1-15.2)
[2023-08-30 03:45] LABS: ALT/SGPT 22 U/L (13-56); Albumin 2.9 g/dL (3.4-5.0); Alkaline Phosphatase 154 U/L (45-117); Anion Gap 9.8 mEq/L (5.0-15.0); BUN Blood Urea Nitrogen 6 mg/dL (7-18); Bicarbonate 22 mEq/L (21-32); Bilirubin Total 0.2 mg/dL (0.2-1.0); Globulin 2.8 g/dL (2.3-3.5); Glomerular Filtration Rate 76 ml/min (=/>90); Glucose Level 87 mg/dL (74-106); Potassium 3.8 mEq/L (3.5-5.1); Protein, Total 5.7 g/dL (6.4-8.2); Sodium Level 139 mEq/L (136-145); Troponin High Sensitivity 20.1 pg/mL (<58.9)
[2023-08-30 03:47] LABS: AST/SGOT < 10 U/L (15-37)
[2023-08-30] MEDS: ENOXAPARIN 40 MG/0.4 ML SQ SCH (08:10)
[2023-08-30] MEDS: CLOPIDOGREL 75 MG TABLET PO SCH (08:11)
[2023-08-30] MEDS: FOLIC ACID 1 MG TABLET PO SCH (08:11)
[2023-08-30] MEDS: ASPIRIN EC 81 MG TAB PO SCH (08:11)
[2023-08-30] MEDS: POTASSIUM CL SA 10 MEQ TAB PO ONE (08:11)
[2023-08-30] MEDS: ACETAMINOPHEN 325 MG TABLET PO PRN (08:14)
[2023-08-30 09:58] VITALS: TEMP 97
--- NOTE | 2023-08-30 15:59 | CON ---
Date of Consultation: 08/30/2023 Reason For Consultation: Chest pain. History Of Present Illness: 48-year-old female, history of asthma, COPD, hypertension, CVA, left-endy ed weakness, mild coronary artery disease, had the cath recently. She has history of hypothyroidism, presented with chest pain, left side, no radiation, and no shortness of breath, and it is sharp in n ature. No nausea or vomiting. No diarrhea. No abdominal pain. Past Medical History: As outlined above in the HPI. Medications: Refer to reconciliation sheet for detailed list. Allergies: ASPIRIN. Family History: No premature coronary artery disease or cancer. Social History: She is an ex-smoker. Does not drink or use any drugs. Review of Systems: All systems reviewed and they were negative except as mentioned in the HPI. Physical Examination: Vital Signs: Reviewed. Head and Neck: Pupils are equal, reactive to light. Intact eye movements. No JVD. No cervical lym phadenopathy. Neck is supple. Thyroid is not enlarged. Lungs: Clear to auscultation bilaterally. No rhonchi, wheezing, or crackles. No accessory muscle u se. Heart: Regular rate and rhythm. No extra sounds. Abdomen: Soft, nontender. Bowel sounds positive. No organomegaly. No masses or hernia. No rigidi ty or rebound. Extremities: No edema, clubbing, or cyanosis. Intact pulses. Skin: No rash. No nodule. Neurologic: Alert, awake, oriented x3. No acute focal deficits appreciated. Lymph Nodes: No cervical or axillary lymphadenopathy. Investigations: Cardiac catheterization on November 2022, no significant disease, and cardiac enzym es over here x3 are negative. BUN 6, creatinine 0.93, and hemoglobin is 10.8. Assessment And Recommendations: 1.Chest pain, likely noncardiac. Coronary angiogram recently did not show any significant coronary artery disease. Cardiac enzymes are negative. No further cardiac workup is needed. 2.Dyslipidemia. Recommend to continue Lipitor. 3.Hypertension. Blood pressure is controlled. Continue metoprolol. 4.History of cerebrovascular accident, stable. No new symptoms. Continue current management. Cardiology will sign off and patient can be followed on an outpatient basis. /CARMELINA Voice ID: [id number] Report ID: [id number]
--- NOTE | 2023-08-30 16:38 | P.DS ---
Admission Date: 08/29/23 Discharge Date: 08/30/23 Reason for Admission: Chest pain - Problems (1) COPD (chronic obstructive pulmonary disease) Current Visit: No Status: Acute Qualifiers: Emphysema type: unspecified (2) Chest pain Current Visit: No Status: Acute (3) Hypertension Current Visit: No Status: Chronic Qualifiers: Brief History of Present Illness: 48 yrs old Female with past medical history of asthma, COPD, hypertension, CVA, left-sided weakness, CAD, history of [place], history of seizures, hypothyroidism came to ER with aggressive and worsening chest pain, located in substernal area with no radiation, pressure-like feeling. Patient was chest pain-free at the time of interview. She was assessed in the ER and was admitted for further evaluation of chest pain to rule out ACS Hospital Course: Patient placed on observation on the medical floor, troponin trended negative. She was seen and evaluated by cardiology. Patient chest pain considered noncardiac. She has been chest pain-free with stable vitals. ACS ruled out. Patient is deemed stable for discharge. Vital Signs/Physical Exam: Temp Pulse Resp BP Pulse Ox 97.0 F 53 12 146/84 H 100 08/30/23 12:00 08/30/23 12:00 08/30/23 12:00 08/30/23 12:00 08/30/23 12:00 General: Alert, In no apparent distress, Oriented x3 HEENT: Mucous membr. moist/pink Neck: JVD not distended Respiratory: Clear to auscultation bilaterally, Normal air movement Cardiovascular: No edema, Regular rate/rhythm, Normal S1 S2 Gastrointestinal: Normal bowel sounds, Soft and benign, Non-distended Musculoskeletal: No swelling Integumentary: No rashes Neurological: Normal speech, Other (Old left-sided weakness) Laboratory Data at Discharge: WBC 10.50 thou/uL (4.3-10.9) 08/30/23 02:44 Hgb 10.8 g/dL (12.0-15.0) L D 08/30/23 02:44 Hct 31.2 % (36.0-45.0) L 08/30/23 02:44 Plt Count 356 thou/uL (152-406) 08/30/23 02:44 PT 11.9 SECONDS (9.5-12.5) 08/29/23 19:30 INR 1.08 08/29/23 19:30 Sodium 139 mEq/L (136-145) 08/30/23 02:44 Potassium Cancelled 08/30/23 Unknown BUN 6 mg/dL (7-18) L 08/30/23 02:44 Creatinine 0.93 mg/dL (0.55-1.02) 08/30/23 02:44 Glucose 87 mg/dL (74-106) 08/30/23 02:44 Magnesium Cancelled 08/30/23 03:30 Total Bilirubin 0.2 mg/dL (0.2-1.0) 08/30/23 02:44 AST < 10 U/L (15-37) L 08/30/23 02:44 ALT 22 U/L (13-56) 08/30/23 02:44 Alkaline Phosphatase 154 U/L (45-117) H 08/30/23 02:44 Home Medications: Atorvastatin Calcium [Lipitor] 40 mg PO BEDTIME #30 tab 01/03/23 Folic Acid 1 mg PO DAILY #30 tab 01/03/23 Clopidogrel Bisulfate [Plavix*] 75 mg PO DAILY #30 tab 02/28/23 Metoprolol Tartrate 12.5 mg PO BID #120 tab 08/23/23 Diet: AHA Activity: Fall precautions Followup: NONE,NONE [Primary Care Provider] - 1-2 Weeks Time spent managing pt's care (in minutes): 25
[2023-08-30 17:03] VITALS: BP 140/74
--- NOTE | 2023-09-02 15:05 | EKG ---
Test Date: 2023-08-29 Test Time: 19:01:48 Hydrogen Treater: MEASUREMENT RESULTS: Intervals: Rate: 63 TN: 190 QRSD: 90 QT: 436 QTc: 446 [place]: P: 49 TN: 190 QRS: -6 T: 124 INTERPRETIVE STATEMENTS: Sinus rhythm with occasional premature ventricular complexes Possible Left atrial enlargement Left ventricular hypertrophy with repolarization abnormality Abnormal ECG Compared to ECG 08/26/2023 20:38:22 Ventricular premature complex(es) now present Left ventricular hypertrophy now present Early repolarization now present Myocardial infarct finding no longer present ST (T wave) deviation no longer present Possible ischemia no longer present Electronically Signed On 09-02-23 14:55:18 CDT by Josse Olson
== END 2023-08-30 18:15 | disposition home health service (06) ==
LOC: ER 18:37 → ERHOLD 20:29 → 2ND 21:33
PROVIDERS: ADMIT Family Medicine; ATTEND Internal Medicine
DX: R07.9 Chest pain, unspecified (principal); I25.10 Atherosclerotic heart disease of native coronary artery without angina pectoris; I25.2 Old myocardial infarction; I10 Essential (primary) hypertension; J45.909 Unspecified asthma, uncomplicated; J44.9 Chronic obstructive pulmonary disease, unspecified; R79.89 Other specified abnormal findings of blood chemistry; E87.1 Hypo-osmolality and hyponatremia; E83.42 Hypomagnesemia; E78.5 Hyperlipidemia, unspecified; R53.1 Weakness; R56.9 Unspecified convulsions; E03.9 Hypothyroidism, unspecified; Z88.6 Allergy status to analgesic agent; Z86.73 Personal history of transient ischemic attack (TIA), and cerebral infarction without residual deficits; Z91.013 Allergy to seafood; Z91.018 Allergy to other foods; Z87.891 Personal history of nicotine dependence
CPT/HCPCS: 96365; 93005; 85025 ×2; 81001; 80048; 36415; 83735 ×2; 80156; 85610; 80076; 84484 ×3; 80053; 83880; 80307; 71045; 96375; 99285; J3475 ×2; J1650; J0696; G0378 ×4

== ENCOUNTER 2023-09-01 20:09 | Emergency (ER) | payer OTHER ==
--- NOTE | 2023-09-01 20:36 | RAD REPORT ---
EXAM DESCRIPTION: RAD - Chest Single View - 09/01/2023 8:30 pm CLINICAL HISTORY: CHEST PAIN Chest pain. COMPARISON: Chest Single View dated 08/29/2023; Chest Single View dated 08/26/2023; Chest Single View dated 08/25/2023; Chest Single View dated 08/21/2023 FINDINGS: Portable technique limits examination quality. The lungs are grossly clear. The heart is upper limit of normal in size. No displaced fractures. IMPRESSION: No acute intrathoracic process suspected.
[2023-09-01 20:56] LABS: PT Prothrombin Time 10.7 SECONDS (9.5-12.5); Protime INR 0.97
[2023-09-01 21:08] LABS: Absolute Eosinophils 0.2 K/uL (0-0.5); Absolute Lymphocytes (CBC) 1.8 K/uL (0.7-4.9); Absolute Monocytes 0.7 K/uL (0.1-1.3); Absolute Neutrophil 5.8 K/uL (1.8-8.0); Basophils % 0.4 % (0-1.3); Eosinophils % 1.8 % (0-4.4); Hematocrit 32.6 % (36.0-45.0); Hemoglobin 11.2 g/dL (12.0-15.0); Lymphocytes % 20.8 % (15.3-44.8); MCH 33.2 pg (27.0-35.0); MCHC 34.2 g/dL (32.0-36.0); MCV 96.9 fL (80-100); MPV 6.1 fL (7.6-11.3); Monocytes % 8.2 % (3.3-12.3); Neutrophils % 68.8 % (41.7-73.7); Nucleated Red Blood Cells % 0.1 % (0-0); Platelets 379 thou/uL (152-406); RBC Red Blood Cell Count 3.36 M/uL (3.86-4.86); Red Cell Distribution Width 14.9 % (12.1-15.2)
[2023-09-01 21:24] LABS: ALT/SGPT 70 U/L (13-56); Albumin 3.2 g/dL (3.4-5.0); Alkaline Phosphatase 416 U/L (45-117); Anion Gap 7.7 mEq/L (5.0-15.0); BUN Blood Urea Nitrogen 6 mg/dL (7-18); Bicarbonate 26 mEq/L (21-32); Bilirubin Total 0.2 mg/dL (0.2-1.0); Globulin 3.2 g/dL (2.3-3.5); Glomerular Filtration Rate 64 ml/min (=/>90); Glucose Level 83 mg/dL (74-106); NT PRO-BNP 3010 pg/mL (<125); Protein, Total 6.4 g/dL (6.4-8.2); Sodium Level 136 mEq/L (136-145); Troponin High Sensitivity 20.5 pg/mL (<58.9)
[2023-09-01 21:27] LABS: AST/SGOT 51 U/L (15-37); Bilirubin Direct < 0.2 mg/dL (0-0.2); Magnesium 1.4 mg/dL (1.6-2.4); Potassium 3.7 mEq/L (3.5-5.1)
[2023-09-01 21:58] LABS: Calcium Oxalate Crystals- Ur Many /HPF (None Seen); Sqamous Epithelial <5 /HPF (None Seen); Urine Bacteria <20 /HPF (<20); Urine Bilirubin NEGATIVE (Negative); Urine Blood Negative (Negative); Urine Clarity Extremely Turbid (Clear); Urine Color Light-Yellow (Yellow); Urine Culture Reflex Order NOT NEEDED; Urine Glucose NEGATIVE (Negative); Urine Ketones NEGATIVE (Negative); Urine Microscopic Reflex YN ORDER UMIC; Urine Nitrite NEGATIVE (Negative); Urine Protein TRACE (Negative); Urine Urobilinogen Normal (Normal); Urine WBC <5 /HPF (<5)
[2023-09-01 22:02] LABS: Barbiturates NEGATIVE (NEGATIVE); Benzodiazepines NEGATIVE (NEGATIVE); Cocaine NEGATIVE (NEGATIVE); METHAMPHETAM NEGATIVE (NEGATIVE); Methadone NEGATIVE (NEGATIVE); Opiates NEGATIVE (NEGATIVE); Phencyclidine NEGATIVE (NEGATIVE); THC Cannibis NEGATIVE (NEGATIVE)
[2023-09-01] MEDS ORDERED: MAGNESIUM SULFATE 1 gm IVPB 1 GM/100 ML BAG IV ONE (22:03)
[2023-09-01] MEDS ORDERED: CEFTRIAXONE 1000 MG/VIAL ONE (22:13)
[2023-09-01 23:40] LABS: Troponin High Sensitivity 21.2 pg/mL (<58.9)
--- NOTE | 2023-09-02 00:29 | ER ---
Nurse's Notes [facility] Name: Geetha Khan Age: 48 yrs Sex: Female : 1975 Arrival Date: 09/01/2023 Time: 20:07 Bed 6 Private MD: Diagnosis: Chest pain, unspecified;Adjustment disorder with mixed anxiety and depressed mood-MOTHER PASSING;Hypomagnesemia;UTI/ Urinary tract infection, site not specified;Poisoning by iminostilbenes, accidental (unintentional), initial encounter-TEGRETOL Presentation: 08/31 20:07 Chief complaint: EMS states: chest pain that started suddenly while lying in bed. Rates tm6 9/10 pain. Patient only took BP meds today. Coronavirus screen: Vaccine status: Patient reports being unvaccinated. Ebola Screen: Patient negative for fever greater than or equal to 101.5 degrees Fahrenheit, and additional compatible Ebola Virus Disease symptoms Patient denies exposure to infectious person. Patient denies travel to an Ebola-affected area in the 21 days before illness onset. No symptoms or risks identified at this time. Initial Sepsis Screen: Does the patient meet any 2 criteria? No. Patient's initial sepsis screen is negative. Does the patient have a suspected source of infection? No. Patient's initial sepsis screen is negative. Risk Assessment: Do you want to hurt yourself or someone else? Patient reports no desire to harm self or others. Onset of symptoms was September 01, 2023. 20:07 Method Of Arrival: EMS: [facility] tm6 20:07 Acuity: CORRINA 3 tm6 Triage Assessment: 20:09 General: Appears in no apparent distress. Behavior is calm, cooperative. Pain: tm6 Complains of pain in chest Pain does not radiate. Pain currently is 9 out of 10 on a pain scale. EENT: No signs and/or symptoms were reported regarding the EENT system. Neuro: Level of Consciousness is awake, alert, obeys commands, Oriented to person, place, time, situation. Cardiovascular: Reports chest pain, Patient's skin is warm and dry. Respiratory: Airway is patent Respiratory effort is even, unlabored, Respiratory pattern is regular, symmetrical. GI: Abdomen is flat, non-distended. : No signs and/or symptoms were reported regarding the genitourinary system. Derm: No signs and/or symptoms reported regarding the dermatologic system. Musculoskeletal: No signs and/or symptoms reported regarding the musculoskeletal system. 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 - Infectious Disease History:: Denies. - Social history:: Smoking status: Patient reports the use of cigarette tobacco products, smokes one-half pack cigarettes per day, Patient/guardian denies using alcohol. - Family history:: not pertinent. Screenin:18 [facility] ED Fall Risk Assessment (Adult) History of falling in the last 3 months, tm6 including since admission No falls in past 3 months (0 pts) Confusion or Disorientation No (0 pts) Intoxicated or Sedated No (0 pts) Impaired Gait Yes (1 pt) Mobility Assist Device Used No (0 pt) Altered Elimination Yes (1 pt) Score/Fall Risk Level 0 - 2 = Low Risk Oriented to surroundings, Maintained a safe environment, Educated pt \T\ family on fall prevention, incl call for assistance when getting out of bed. Abuse screen: Denies threats or abuse. Denies injuries from another. Nutritional screening: No deficits noted. Tuberculosis screening: No symptoms or risk factors identified. Assessment: 20:17 Reassessment: see triage assessment. tm6 21:14 Reassessment: Patient appears in no apparent distress at this time. Patient and/or tm6 family updated on plan of care and expected duration. Pain level reassessed. Patient is alert, oriented x 3, equal unlabored respirations, skin warm/dry/pink. 22:20 Reassessment: Patient and/or family updated on plan of care and expected duration. Pain tm6 level reassessed. Patient is alert, oriented x 3, equal unlabored respirations, skin warm/dry/pink. 23:54 Reassessment: No changes from previously documented assessment. tm6 Vital Signs: 20:07 BP 128 / 77; Pulse 62; Resp 17; Temp 97.3; Pulse Ox 100% on R/A; Weight 68.04 kg; tm6 Height 5 ft. 3 in. ; Pain 9/10; 21:14 BP 137 / 91; Pulse 66; Pulse Ox 100% on R/A; Pain 8/10; tm6 22:20 BP 145 / 85; Pulse 64; Pulse Ox 100% on R/A; tm6 23:54 BP 138 / 88; Pulse 59; Pulse Ox 100% on R/A; Pain 0/10; tm6 20:07 Body Mass Index 26.57 (68.04 kg, 160.02 cm) tm6 20:07 Pain Scale: Adult tm6 21:14 Pain Scale: Adult tm6 23:54 Pain Scale: Adult tm6 ED Course: 20:07 Patient arrived in ED. tm6 20:08 Michael Grimm MD is Attending Physician. juan diego 20:09 Triage completed. tm6 20:09 Arm band placed on right wrist. tm6 20:13 Shahnaz steele, RN is Primary Nurse. pc2 20:17 EKG done, by ED staff, reviewed by Michael Grimm MD. tm6 20:18 Patient has correct armband on for positive identification. Bed in low position. Call tm6 light in reach. Side rails up X2. Provided Education on: use of call breen. Client placed on continuous cardiac and pulse oximetry monitoring. NIBP monitoring applied. air sampling and monitoring on. Pulse ox on. NIBP on. Door closed. Noise minimized. Warm blanket given. 20:32 XRAY Chest (1 view) In Process Unspecified. EDMS 20:35 Missed attempt(s): 20 gauge in right antecubital area. pc2 20:40 Inserted saline lock: 22 gauge in right hand, using aseptic technique. Blood collected. pc2 20:41 Basic Metabolic Panel Sent. pc2 20:41 CBC with Diff Sent. pc2 20:41 LFT's Sent. pc2 20:41 Magnesium Sent. pc2 20:41 NT PRO-BNP Sent. pc2 20:41 PT-INR Sent. pc2 20:41 Troponin HS Sent. pc2 21:23 PREGU Sent. tm6 21:23 UDS Sent. tm6 21:23 Urinalysis w/ reflexes Sent. tm6 22:56 Troponin HS: NOW Sent. pc2 22:56 Tegretol Level Sent. pc2 22:56 Troponin HS: NOW Sent. pc2 06 00:28 Josse Olson MD is Referral Physician. juan diego 00:30 Deangelo Tsai MD is Referral Physician. juan diego 00:33 IV discontinued, intact, bleeding controlled, No redness/swelling at site. Pressure pc2 dressing applied. 00:34 No provider procedures requiring assistance completed. pc2 Administered Medications: 08/31 22:20 Drug: Rocephin IV 1 grams IV at per protocol once; Given slow IV push per pharmacy pc2 instructions Route: IV; Rate: per protocol; Site: right hand; 09/01 00:05 Follow up: Response: No adverse reaction; IV Status: Completed infusion; IV Intake: [id number] 08/31 22:25 Drug: Magnesium Sulfate IVPB 1 grams IVPB once over 1 hrs Route: IVPB; Infused Over: 1 pc2 hrs; Site: right hand; 22:55 Follow up: Response: No adverse reaction; IV Status: Completed infusion; IV Intake: pc2 100ml Medication: 20:18 VIS not applicable for this client. tm6 Intake: 22:55 IV: 100ml; Total: 100ml. pc2 09/01 00:05 IV: 10ml; Total: 110ml. pc2 Outcome: 00:28 Discharge ordered by . juan diego 00:34 Discharged to home via wheelchair, with family, pc2 00:34 Condition: stable 00:34 Discharge instructions given to patient, family, Instructed on discharge instructions, follow up and referral plans. medication usage, Demonstrated understanding of instructions, follow-up care, medications, 00:41 Prescriptions given X 3, pc2 00:42 Patient left the ED. pc2 Signatures: Dispatcher [employer] Michael Meyer MD MD cha Masterson, Tawney, RN RN tm6 Shahnaz steele, RN RN pc2 Corrections: (The following items were deleted from the chart) 00:05 08/31 22:50 IV Status: Completed infusion; IV Intake: 10ml pc2 pc2
--- NOTE | 2023-09-02 00:29 | EDPHYS ---
Physician Documentation [facility] Name: Geetha Khan Age: 48 yrs Sex: Female : 1975 Arrival Date: 09/01/2023 Time: 20:07 Bed 6 Private MD: ED Physician Michael Grimm HPI: 08/31 21:57 This 48 yrs old Female presents to ER via EMS with complaints of Chest Pain. juan diego 21:57 The patient or guardian reports chest pain that is located primarily in the anterior juan diego chest wall, bilaterally. Onset: just prior to arrival. The pain does not radiate. Associated signs and symptoms: Pertinent positives: UPSET, MOM PASSED TODAY IN 98. 21:57 The chest pain is described as aching. Modifying factors: The symptoms are alleviated juan diego by nothing. the symptoms are aggravated by nothing. Severity of pain: At its worst the pain was mild in the emergency department the pain is unchanged. The patient has experienced similar episodes in the past, multiple times. 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 - Infectious Disease History:: Denies. - Social history:: Smoking status: Patient reports the use of cigarette tobacco products, smokes one-half pack cigarettes per day, Patient/guardian denies using alcohol. - Family history:: not pertinent. ROS: 21:57 Constitutional: Negative for fever, chills, and weight loss, Eyes: Negative for injury, juan diego pain, redness, and discharge, ENT: Negative for injury, pain, and discharge, Neck: Negative for injury, pain, and swelling, Respiratory: Negative for shortness of breath, cough, wheezing, and pleuritic chest pain, Abdomen/GI: Negative for abdominal pain, nausea, vomiting, diarrhea, and constipation, Back: Negative for injury and pain, : Negative for injury, bleeding, discharge, and swelling, MS/Extremity: Negative for injury and deformity, Skin: Negative for injury, rash, and discoloration, Neuro: Negative for headache, weakness, numbness, tingling, and seizure, Psych: Negative for depression, anxiety, suicide ideation, homicidal ideation, and hallucinations, Allergy/Immunology: Negative for hives, rash, and allergies, Endocrine: Negative for neck swelling, polydipsia, polyuria, polyphagia, and marked weight changes, Hematologic/Lymphatic: Negative for swollen nodes, abnormal bleeding, and unusual bruising, 21:57 Cardiovascular: Positive for chest pain, of the chest, Exam: 21:57 Constitutional: This is a well developed, well nourished patient who is awake, alert, juan diego and in no acute distress. Head/Face: Normocephalic, atraumatic. Eyes: Pupils equal round and reactive to light, extra-ocular motions intact. Lids and lashes normal. Conjunctiva and sclera are non-icteric and not injected. Cornea within normal limits. Periorbital areas with no swelling, redness, or edema. ENT: Nares patent. No nasal discharge, no septal abnormalities noted. Tympanic membranes are normal and external auditory canals are clear. Oropharynx with no redness, swelling, or masses, exudates, or evidence of obstruction, uvula midline. Mucous membranes moist. Neck: Trachea midline, no thyromegaly or masses palpated, and no cervical lymphadenopathy. Supple, full range of motion without nuchal rigidity, or vertebral point tenderness. No Meningismus. Chest/axilla: Normal chest wall appearance and motion. Nontender with no deformity. No lesions are appreciated. Cardiovascular: Regular rate and rhythm with a normal S1 and S2. No gallops, murmurs, or rubs. Normal PMI, no JVD. No pulse deficits. Respiratory: Lungs have equal breath sounds bilaterally, clear to auscultation and percussion. No rales, rhonchi or wheezes noted. No increased work of breathing, no retractions or nasal flaring. Abdomen/GI: Soft, non-tender, with normal bowel sounds. No distension or tympany. No guarding or rebound. No evidence of tenderness throughout. Back: No spinal tenderness. No costovertebral tenderness. Full range of motion. Skin: Warm, dry with normal turgor. Normal color with no rashes, no lesions, and no evidence of cellulitis. MS/ Extremity: Pulses equal, no cyanosis. Neurovascular intact. Full, normal range of motion. Neuro: Awake and alert, GCS 15, oriented to person, place, time, and situation. Cranial nerves II-XII grossly intact. Motor strength 5/5 in all extremities. Sensory grossly intact. Cerebellar exam normal. Normal gait. Psych: Awake, alert, with orientation to person, place and time. Behavior, mood, and affect are within normal limits. 21:57 ECG was reviewed by the Attending Physician. Vital Signs: 20:07 BP 128 / 77; Pulse 62; Resp 17; Temp 97.3; Pulse Ox 100% on R/A; Weight 68.04 kg; tm6 Height 5 ft. 3 in. ; Pain 9/10; 21:14 BP 137 / 91; Pulse 66; Pulse Ox 100% on R/A; Pain 8/10; tm6 22:20 BP 145 / 85; Pulse 64; Pulse Ox 100% on R/A; tm6 23:54 BP 138 / 88; Pulse 59; Pulse Ox 100% on R/A; Pain 0/10; tm6 20:07 Body Mass Index 26.57 (68.04 kg, 160.02 cm) tm6 20:07 Pain Scale: Adult tm6 21:14 Pain Scale: Adult tm6 23:54 Pain Scale: Adult tm6 MDM: 20:09 Patient medically screened. [facility] 08/31 20:09 Order name: Basic Metabolic Panel; Complete Time: 21:45 [facility] 08/31 20:09 Order name: CBC with Diff; Complete Time: 21:45 [facility] 08/31 20:09 Order name: LFT's; Complete Time: 21:45 [facility] 08/31 20:09 Order name: Magnesium; Complete Time: 21:45 [facility] 08/31 20:09 Order name: NT PRO-BNP; Complete Time: 21:45 [facility] 08/31 20:09 Order name: PT-INR; Complete Time: 21:45 [facility] 08/31 20:09 Order name: Troponin HS; Complete Time: 21:45 [facility] 08/31 20:09 Order name: Urinalysis w/ reflexes; Complete Time: 22:04 08/31 20:09 Order name: UDS; Complete Time: 22:04 08/31 20:09 Order name: PREGU; Complete Time: 22:04 [facility] 08/31 22:07 Order name: Tegretol Level; Complete Time: 00:03 [facility] 08/31 22:07 Order name: Troponin HS: NOW; Complete Time: 00:03 [facility] 08/31 20:09 Order name: XRAY Chest (1 view); Complete Time: 21:45 [facility] 08/31 20:09 Order name: EKG; Complete Time: 20:10 [facility] 08/31 20:09 Order name: Cardiac monitoring; Complete Time: 20:18 [facility] 08/31 20:09 Order name: EKG - Nurse/Tech; Complete Time: 20:18 [facility] 08/31 20:09 Order name: IV Saline Lock; Complete Time: 20:41 [facility] 08/31 20:09 Order name: Labs collected and sent; Complete Time: 20:41 [facility] 08/31 20:09 Order name: O2 Per Protocol; Complete Time: 20:19 [facility] 08/31 20:09 Order name: O2 Sat Monitoring; Complete Time: 20:19 [facility] EC:57 Rate is 61 beats/min. Rhythm is regular. QRS [place] is Normal. [place] interval is normal. QRS [place] interval is normal. QT interval is normal. No Q waves. T waves are Inverted in leads V5, V6. No ST changes noted. Clinical impression: Abnormal EKG without significant change and LVH. Interpreted by me. Reviewed by me. Administered Medications: 22:20 Drug: Rocephin IV 1 grams IV at per protocol once; Given slow IV push per pharmacy pc2 instructions Route: IV; Rate: per protocol; Site: right hand; 09/01 00:05 Follow up: Response: No adverse reaction; IV Status: Completed infusion; IV Intake: [id number] 08/31 22:25 Drug: Magnesium Sulfate IVPB 1 grams IVPB once over 1 hrs Route: IVPB; Infused Over: 1 pc2 hrs; Site: right hand; 22:55 Follow up: Response: No adverse reaction; IV Status: Completed infusion; IV Intake: pc2 100ml Disposition Summary: 09/02/23 00:28 Discharge Ordered Notes: Location: Home juan diego Problem: new juan diego Symptoms: have improved juan diego Condition: Stable juan diego Diagnosis - Chest pain, unspecified juan diego - Adjustment disorder with mixed anxiety and depressed mood - MOTHER PASSING juan diego - Hypomagnesemia juan diego - UTI/ Urinary tract infection, site not specified juan diego - Poisoning by iminostilbenes, accidental (unintentional), initial encounter - [facility] TEGRETOL Followup: juan diego - With: Private Physician - When: 2 - 3 days - Reason: Recheck today's complaints, Continuance of care, Re-evaluation by your physician Followup: juan diego - With: Josse Olson MD - When: 2 - 3 days - Reason: Recheck today's complaints, Continuance of care, Re-evaluation by your physician Followup: juan diego - With: Deangelo Tsai MD - When: 2 - 3 days - Reason: Recheck today's complaints, Re-evaluation by your physician Discharge Instructions: - Discharge Summary Sheet juan diego - Nonspecific Chest Pain, Adult juan diego - Hypertension, Adult juan diego - Hypomagnesemia juan diego - Urinary Tract Infection, Adult juan diego - Nonspecific Chest Pain, Adult, [id number] juan diego - Complicated Grief [facility] Forms: - Medication Reconciliation Form juan diego - Antibiotic Education juan diego - Prescription Opioid Use juan diego - Patient Portal Instructions [facility] - Leadership Thank You Letter [facility] Prescriptions: - MagOx 400 mg (241.3 mg magnesium) Oral tablet - take 1 tablet ORAL route daily; 20 tablet; Refills: 0, Product Selection [facility] Permitted - Cipro 250 mg Oral tablet - take 1 tablet ORAL route every 12 hours; 10 tablet; Refills: 0, Product [facility] Selection Permitted - Tegretol XR 200 mg Oral Tablet,Extended Release 12 hr - take 1 tablet ORAL route once daily; 30 tablet; Refills: 0, Product Selection [facility] Permitted Signatures: Dispatcher [employer] EDMS Michael Grimm MD MD cha Masterson, Tawney RN RN tm6 Shahnaz steele, RN RN pc2 Corrections: (The following items were deleted from the chart) 22:06 22:06 Troponin High Sensitivity+C.LAB.BRZ ordered. EDMS EDMS 22:08 22:08 CARBAMAZEPINE (TEGRETOL)+C.LAB.BRZ ordered. EDMS EDMS 22:08 22:08 Troponin High Sensitivity+C.LAB.BRZ ordered. EDMS EDMS
[2023-09-02 01:02] VITALS: BP 138/88; O2SAT 100
--- NOTE | 2023-09-02 14:53 | EKG ---
Test Date: 2023-09-01 Test Time: 20:15:36 Radiation Control Health Physicist: BAILEY MEASUREMENT RESULTS: Intervals: Rate: 61 OR: 198 QRSD: 90 QT: 442 QTc: 444 [place]: P: 57 OR: 198 QRS: 9 T: 123 INTERPRETIVE STATEMENTS: Normal sinus rhythm Left ventricular hypertrophy with repolarization abnormality Abnormal ECG Compared to ECG 08/29/2023 19:01:48 Ventricular premature complex(es) no longer present Electronically Signed On 09-02-23 14:50:55 CDT by Josse Olson
== END 2023-09-02 00:42 | disposition home or self-care (01) ==
LOC: ER 20:09
DX: R07.9 Chest pain, unspecified (principal); F43.23 Adjustment disorder with mixed anxiety and depressed mood; E83.42 Hypomagnesemia; N39.0 Urinary tract infection, site not specified; T42.1X1A Poisoning by iminostilbenes, accidental (unintentional), initial encounter
CPT/HCPCS: 93005; 85025; 81001; 80048; 36415; 83735; 80156; 81025; 85610; 80076; 84484 ×2; 83880; 80307; 71045; J3475; J0696; 96365; 99285

== ENCOUNTER 2023-09-04 20:40 | Emergency (ER) | payer OTHER, SELFPAY ==
[2023-09-04] MEDS ORDERED: ALBUTEROL 2.5 MG/3 ML NEB SOL ONE (21:12)
[2023-09-04] MEDS ORDERED: IPRATROPIUM BROM 0.5MG/2.5ML ONE (21:12)
[2023-09-04] MEDS ORDERED: KETOROLAC 30 MG/ML INJ ONE (21:13)
--- NOTE | 2023-09-04 21:55 | EDPHYS ---
Physician Documentation [facility] Name: Geetha Khan Age: 48 yrs Sex: Female : 1975 Arrival Date: 09/04/2023 Time: 20:40 Bed 13 Private MD: ED Physician Uriel Cannon HPI: 09/03 21:52 This 48 yrs old Female presents to ER via EMS with complaints of chest pain. kb 21:52 Pt is a 48 year old female who presents for chest pain that started one hour ago. kb States this pain is similar to the chest pain she has every day. Denies shortness of breath, nausea, vomiting. 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 - Infectious Disease History:: Denies. - Social history:: Smoking status: Patient reports the use of cigarette tobacco products, smokes one-half pack cigarettes per day. ROS: 21:52 Constitutional: As per HPI kb Exam: 20:57 Constitutional: This is a well developed, well nourished patient who is awake, alert, kb and in no acute distress. Head/Face: Normocephalic, atraumatic. ENT: Moist Mucous membranes Cardiovascular: Regular rate Abdomen/GI: Soft, non-tender. No distention Skin: Warm, dry with normal turgor. Normal color. MS/ Extremity: Pulses equal, no cyanosis. Neurovascular intact. Full, normal range of motion. Neuro: Awake and alert, GCS 15, oriented to person, place, time, and situation. Moves all extremities. Normal gait. 20:57 ECG was reviewed by the Attending Physician. 20:57 Respiratory: the patient does not display signs of respiratory distress, Respirations: normal, Breath sounds: decreased breath sounds, that are moderate, are scattered, wheezing: inspiratory that is mild, is scattered, Vital Signs: 20:38 BP 113 / 80; Pulse 57; Resp 16; Temp 98.3; Pulse Ox 93% on R/A; Weight 68.04 kg; Height nj1 5 ft. 2 in. ; Pain 10/10; 21:00 BP 152 / 90; Pulse 61; Resp 14; Pulse Ox 99% on R/A; me1 21:00 BP 122 / 87; Pulse 59; Resp 15; Pulse Ox 98% on R/A; me1 20:38 Body Mass Index 27.44 (68.04 kg, 157.48 cm) nj1 20:38 Pain Scale: Adult nj1 MDM: 20:43 Patient medically screened. kb 21:52 Differential diagnosis: abnormal EKG, acute myocardial infarction, anxiety, chest wall kb pain. Data reviewed: vital signs, nurses notes. Management of patient was discussed with the following: Dr Cannon recommends EKG only, no serum labs including troponin. Test considered but Not performed: Labs: cbc, cmp and troponin considered. . Historians other than the Patient: EMS: [facility]. Counseling: I had a detailed discussion with the patient and/or guardian regarding the historical points, exam findings, and any diagnostic results supporting the discharge/admit diagnosis, radiology results, the need for outpatient follow up, a family practitioner, to return to the emergency department if symptoms worsen or persist or if there are any questions or concerns that arise at home. 09/03 20:48 Order name: Chest Single View XRAY kb 09/03 20:45 Order name: EKG; Complete Time: 20:46 kb 09/03 20:45 Order name: EKG - Nurse/Tech; Complete Time: 20:54 kb EC:57 Rate is 58 beats/min. Rhythm is regular. QRS [place] is Normal. [place] interval is normal at kb 192 msec. QRS interval is normal at 88 msec. QT interval is normal at 431 msec. Administered Medications: 21:24 Drug: Ketorolac IM 30 mg IM once Route: IM; Site: right deltoid; me1 22:11 Follow up: Response: No adverse reaction; Pain is decreased me1 21:24 Drug: Albuterol Inhalation 2.5 mg Inhalation once Route: Inhalation; me1 22:11 Follow up: Response: No adverse reaction tx1 21:24 Drug: Ipratropium Inhalation Aerosol 0.5 mg Inhalation once Route: Inhalation; me1 22:11 Follow up: Response: No adverse reaction me1 Disposition: 23:15 Co-signature as Attending Physician, Uriel Cannon MD I agree with the assessment sp4 and plan of care. I reviewed the patient's care provided by Advanced Practice Provider \T\ agree w/ the diagnosis \T\ care plan. I personally saw the pt \T\ performed a substantive portion of the visit, incldng all aspects of the (History/Exam/Medical Decision Making). Disposition Summary: 09/04/23 21:54 Discharge Ordered Notes: Location: Home kb Condition: Stable kb Diagnosis - Chest pain, unspecified kb Followup: kb - With: Private Physician - When: 2 - 3 days - Reason: Recheck today's complaints, Continuance of care, Re-evaluation by your physician Followup: kb - With: Emergency Department - When: As needed - Reason: Worsening of condition Discharge Instructions: - Discharge Summary Sheet kb - Nonspecific Chest Pain, Adult, [id number] kb Forms: - Medication Reconciliation Form kb - Antibiotic Education kb - Prescription Opioid Use kb - Patient Portal Instructions kb - Leadership Thank You Letter kb Signatures: Dispatcher [employer] EDMS Kathy Kerns, LOCK OPERATOR-C LOCK OPERATOR-Uriel Do MD MD sp4 Ceci Cleaning RN RN nj1 Nohemy Clark RN RN me1
--- NOTE | 2023-09-04 21:55 | ER ---
Nurse's Notes [facility] Name: Geetha Khan Age: 48 yrs Sex: Female : 1975 Arrival Date: 09/04/2023 Time: 20:40 Bed 13 Private MD: Diagnosis: Chest pain, unspecified Presentation: 09/03 20:38 Chief complaint: EMS states: Midsternal chest pain along with nausea, onset about an me1 hour ago. Denies shortness of breath. 20:38 Coronavirus screen: Vaccine status: Patient reports being unvaccinated. Ebola Screen: nj1 Patient denies travel to an Ebola-affected area in the 21 days before illness onset. Initial Sepsis Screen: Does the patient meet any 2 criteria? No. Patient's initial sepsis screen is negative. Does the patient have a suspected source of infection? No. Patient's initial sepsis screen is negative. Risk Assessment: Do you want to hurt yourself or someone else? Patient reports no desire to harm self or others. Onset of symptoms was September 04, 2023 at 19:30. 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 - Infectious Disease History:: Denies. - Social history:: Smoking status: Patient reports the use of cigarette tobacco products, smokes one-half pack cigarettes per day. Screenin:00 [facility] ED Fall Risk Assessment (Adult) History of falling in the last 3 months, me1 including since admission No falls in past 3 months (0 pts) Confusion or Disorientation No (0 pts) Intoxicated or Sedated No (0 pts) Impaired Gait Yes (1 pt) Mobility Assist Device Used Yes (1 pt) Altered Elimination Yes (1 pt) Score/Fall Risk Level 0 - 2 = Low Risk Maintained a safe environment, Provided non-skid footwear, Hourly rounding (assess needs \T\ fall precautionary measures) done. Abuse screen: Denies threats or abuse. Nutritional screening: No deficits noted. Tuberculosis screening: No symptoms or risk factors identified. Assessment: 21:00 General: Appears uncomfortable, well developed, Behavior is calm, cooperative, me1 appropriate for age, Reports Midsternal chest pain along with nausea, onset about an hour ago. Denies shortness of breath. Pain: Complains of pain in chest Pain does not radiate. Pain currently is 10 out of 10 on a pain scale. Quality of pain is described as sharp, Pain began suddenly, Is continuous. Neuro: Level of Consciousness is awake, alert, obeys commands, Oriented to person, place, time, situation, Appropriate for age. Cardiovascular: Reports chest pain, Patient's skin is warm and dry. Respiratory: Airway is patent Respiratory effort is even, unlabored, Respiratory pattern is regular, symmetrical. GI: Reports nausea. GI: Reports diarrhea. : No signs and/or symptoms were reported regarding the genitourinary system. EENT: No signs and/or symptoms were reported regarding the EENT system. Derm: Skin is intact, is healthy with good turgor, Skin is pink, warm \T\ dry. Musculoskeletal: No signs and/or symptoms reported regarding the musculoskeletal system. paralysis to LUE and LLE. Vital Signs: 20:38 BP 113 / 80; Pulse 57; Resp 16; Temp 98.3; Pulse Ox 93% on R/A; Weight 68.04 kg; Height nj1 5 ft. 2 in. ; Pain 10/10; 21:00 BP 152 / 90; Pulse 61; Resp 14; Pulse Ox 99% on R/A; me1 21:00 BP 122 / 87; Pulse 59; Resp 15; Pulse Ox 98% on R/A; me1 20:38 Body Mass Index 27.44 (68.04 kg, 157.48 cm) ia1 20:38 Pain Scale: Adult [facility] ED Course: 20:43 Patient arrived in ED. lg3 20:43 Kathy Kerns [facility]NP-C [facility] kb 20:43 Ureil Cannon MD is Attending Physician. kb 20:45 Nohemy Clark, RN is Primary Nurse. me1 20:49 Triage completed. nj1 21:00 No provider procedures requiring assistance completed. Patient did not have IV access me1 during this emergency room visit. 21:00 Patient has correct armband on for positive identification. Bed in low position. Call me1 light in reach. Side rails up X2. Provided Education on: POC. Verbalized understanding. . Client placed on continuous cardiac and pulse oximetry monitoring. NIBP monitoring applied. monitoring engineer on. Pulse ox on. NIBP on. 21:24 EKG done, by ED staff, reviewed by Kathy ENCINAS. me1 21:33 Chest Single View XRAY In Process Unspecified. EDMS 22:10 Arm band placed on Patient placed in an exam room. me1 Administered Medications: 21:24 Drug: Ketorolac IM 30 mg IM once Route: IM; Site: right deltoid; me1 22:11 Follow up: Response: No adverse reaction; Pain is decreased me1 21:24 Drug: Albuterol Inhalation 2.5 mg Inhalation once Route: Inhalation; me1 22:11 Follow up: Response: No adverse reaction me1 21:24 Drug: Ipratropium Inhalation Aerosol 0.5 mg Inhalation once Route: Inhalation; me1 22:11 Follow up: Response: No adverse reaction me1 Medication: 21:00 VIS not applicable for this client. me1 Outcome: 21:54 Discharge ordered by . kb 22:10 Discharged to home via wheelchair, with significant other, me1 22:10 Condition: stable 22:10 Discharge instructions given to patient, Instructed on discharge instructions, follow up and referral plans. Demonstrated understanding of instructions, follow-up care, 22:10 Patient left the ED. me1 Signatures: Dispatcher [employer] EDAR Kathy Kerns FNP-C FNP-Ckb Able, Lacie RN RN lg3 Ceci Cleaning RN RN nj1 Nohemy Clark, RN RN me1 Corrections: (The following items were deleted from the chart) 21:57 20:38 Chief complaint: EMS states: Midsternal chest pain along with nausea, onset about me1 an hour ago. Denies shortness of breath. nj1
[2023-09-04 22:25] VITALS: BP 122/87; O2SAT 98
--- NOTE | 2023-09-04 23:01 | RAD REPORT ---
EXAM DESCRIPTION: RADChest Single View09/04/2023 9:31 pm CLINICAL HISTORY: DYSPNEA COMPARISON: Chest Single View dated 09/01/2023; Chest Single View dated 08/29/2023; Chest Single View dated 08/26/2023; Chest Single View dated 08/25/2023 TECHNIQUE: Portable AP view of the chest. FINDINGS: The lungs are clear. No pneumothorax or effusion. The cardiomediastinal contours are unre markable. IMPRESSION: No acute cardiopulmonary process.
--- NOTE | 2023-09-05 16:16 | EKG ---
Test Date: 2023-09-04 Test Time: 20:49:26 Electronics Technician: [facility] MEASUREMENT RESULTS: Intervals: Rate: 58 FL: 192 QRSD: 88 QT: 440 QTc: 431 [place]: P: 49 FL: 192 QRS: 9 T: 126 INTERPRETIVE STATEMENTS: Sinus bradycardia with premature supraventricular complexes and premature ventricular complexes or fusion complexes Left ventricular hypertrophy with repolarization abnormality Abnormal ECG Compared to ECG 09/01/2023 20:15:36 Atrial premature complex(es) now present Fusion complex(es) now present Ventricular premature complex(es) now present Sinus rhythm no longer present Electronically Signed On 09-05-23 16:16:06 CDT by Josse Olson
== END 2023-09-04 22:10 | disposition home or self-care (01) ==
LOC: ER 20:40
DX: R07.9 Chest pain, unspecified (principal); I25.2 Old myocardial infarction
CPT/HCPCS: 71045; 93005; J7613; J7644

== ENCOUNTER 2023-09-05 20:32 | Emergency (ER) | payer SELFPAY ==
[2023-09-05] MEDS ORDERED: HYDROCODONE/APAP 10/325 TAB ONE (21:11)
[2023-09-05] MEDS ORDERED: IBUPROFEN 400 MG TAB ONE (21:11)
[2023-09-05] MEDS ORDERED: DIAZEPAM 5 MG TABLET ONE (21:12)
--- NOTE | 2023-09-05 22:00 | ER ---
Nurse's Notes [facility] Name: Geetha Khan Age: 48 yrs Sex: Female : 1975 Arrival Date: 09/05/2023 Time: 20:32 Bed 4 Private MD: Diagnosis: Chest pain, unspecified;Acute anxiety attack Presentation: 09/04 20:42 Chief complaint: EMS states: chest pain started 1 hour ago. Coronavirus screen: Vaccine tm6 status: Patient reports being unvaccinated. Ebola Screen: Patient negative for fever greater than or equal to 101.5 degrees Fahrenheit, and additional compatible Ebola Virus Disease symptoms Patient denies exposure to infectious person. Patient denies travel to an Ebola-affected area in the 21 days before illness onset. No symptoms or risks identified at this time. Initial Sepsis Screen: Does the patient meet any 2 criteria? No. Patient's initial sepsis screen is negative. Does the patient have a suspected source of infection? No. Patient's initial sepsis screen is negative. Risk Assessment: Do you want to hurt yourself or someone else? Patient reports no desire to harm self or others. Onset of symptoms was September 05, 2023 at 19:44. 20:42 Method Of Arrival: EMS: [facility] tm6 20:42 Acuity: CORRINA 3 tm6 Triage Assessment: 20:44 General: Appears in no apparent distress. Behavior is calm, cooperative. Pain: tm6 Complains of pain in chest Pain does not radiate. Pain currently is 10 out of 10 on a pain scale. EENT: No signs and/or symptoms were reported regarding the EENT system. Neuro: Level of Consciousness is awake, alert, obeys commands, Oriented to person, place, time, situation. Cardiovascular: Reports chest pain, Patient's skin is warm and dry. Respiratory: Airway is patent Respiratory effort is even, unlabored, Respiratory pattern is regular, symmetrical. GI: No signs and/or symptoms were reported involving the gastrointestinal system. Abdomen is flat, non-distended. : No signs and/or symptoms were reported regarding the genitourinary system. Derm: No signs and/or symptoms reported regarding the dermatologic system. Musculoskeletal: No signs and/or symptoms reported regarding the musculoskeletal system. 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 - Infectious Disease History:: Denies. - Social history:: Smoking status: Patient reports the use of cigarette tobacco products, smokes one-half pack cigarettes per day, Patient/guardian denies using alcohol. - Family history:: not pertinent. Screenin:46 [facility] ED Fall Risk Assessment (Adult) History of falling in the last 3 months, tm6 including since admission No falls in past 3 months (0 pts) Confusion or Disorientation No (0 pts) Intoxicated or Sedated No (0 pts) Impaired Gait Yes (1 pt) Mobility Assist Device Used No (0 pt) Altered Elimination Yes (1 pt) Score/Fall Risk Level 0 - 2 = Low Risk Oriented to surroundings, Maintained a safe environment, Educated pt \T\ family on fall prevention, incl call for assistance when getting out of bed. Abuse screen: Denies threats or abuse. Denies injuries from another. Nutritional screening: No deficits noted. Tuberculosis screening: No symptoms or risk factors identified. Assessment: 20:46 Reassessment: see triage assessment. Pain: Pain began 1 hour ago. tm6 21:51 Reassessment: Patient appears in no apparent distress at this time. No changes from tm6 previously documented assessment. 22:20 Reassessment: Patient appears in no apparent distress at this time. Patient and/or jb4 family updated on plan of care and expected duration. Pain level reassessed. Patient is alert, oriented x 3, equal unlabored respirations, skin warm/dry/pink. Vital Signs: 20:42 BP 115 / 75; Pulse 63; Resp 19; Temp 97.5(TE); Pulse Ox 100% ; Weight 68.04 kg; Height tm6 5 ft. 2 in. ; Pain 10/10; 21:51 BP 133 / 105; Pulse 63; Pulse Ox 96% on R/A; tm6 20:42 Body Mass Index 27.44 (68.04 kg, 157.48 cm) tm6 20:42 Pain Scale: Adult tm6 ED Course: 20:37 Patient arrived in ED. jj6 20:37 Uriel Cannon MD is Attending Physician. sp4 20:44 Triage completed. tm6 20:44 Arm band placed on right wrist. tm6 20:46 Patient has correct armband on for positive identification. Placed in gown. Bed in low tm6 position. Call light in reach. Side rails up X2. Provided Education on: use of call breen. Client placed on continuous cardiac and pulse oximetry monitoring. NIBP monitoring applied. successfactors consultant on. Pulse ox on. NIBP on. Door closed. Noise minimized. Warm blanket given. 20:51 EKG done, by ED staff, reviewed by Uriel Cannon MD. ty 21:58 Josse Olson MD is Referral Physician. sp4 22:20 No provider procedures requiring assistance completed. Patient did not have IV access jb4 during this emergency room visit. O2 via RA. Administered Medications: 21:14 Drug: Diazepam PO 5 mg PO once Route: PO; tm6 21:14 Drug: [place] PO 10 mg-325 mg 1 tabs PO once Route: PO; tm6 21:14 Drug: Ibuprofen PO 800 mg PO once Route: PO; tm6 Medication: 20:46 VIS not applicable for this client. tm6 Outcome: 22:00 Discharge ordered by . sp4 22:20 Discharged to home ambulatory, jb4 22:20 Condition: stable 22:20 Discharge instructions given to patient, Instructed on discharge instructions, follow up and referral plans. medication usage, Demonstrated understanding of instructions, follow-up care, medications, Prescriptions given X 1, 22:23 Patient left the ED. jb4 Signatures: Jaziel Storm, RN RN jb4 Bia Garcia j6 Uriel Cannon MD MD sp4 Greg Allen RN RN tm6 [employer] ty
--- NOTE | 2023-09-05 22:00 | EDPHYS ---
Physician Documentation [facility] Name: Geetha Khan Age: 48 yrs Sex: Female : 1975 Arrival Date: 09/05/2023 Time: 20:32 Bed 4 Private MD: ED Physician Uriel Cannon HPI: 09/04 20:37 This 48 yrs old Female presents to ER via Unassigned with complaints of Chest sp4 Pain. 09/05 03:55 Patient presents with anxiety and chest discomfort.. 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 - Infectious Disease History:: Denies. - Social history:: Smoking status: Patient reports the use of cigarette tobacco products, smokes one-half pack cigarettes per day, Patient/guardian denies using alcohol. - Family history:: not pertinent. ROS: 09/05 03:55 Constitutional: Negative for fever, chills, and weight loss, positive anxiety and chest sp4 discomfort. Positive chronic left hemiparesis. All other systems are negative, Exam: 03:55 Constitutional: This is a well developed, well nourished patient who is awake, alert, sp4 and in no acute distress. Head/Face: Normocephalic, atraumatic. Eyes: Pupils equal round and reactive to light, extra-ocular motions intact. Lids and lashes normal. Conjunctiva and sclera are not injected. Cornea within normal limits. Periorbital areas with no swelling, redness, or edema. ENT: Nares patent. No nasal discharge, no septal abnormalities noted. Tympanic membranes are normal and external auditory canals are clear. Oropharynx with no redness, swelling, or masses, exudates, or evidence of obstruction, uvula midline. Mucous membranes moist. Neck: Trachea midline, no thyromegaly or masses palpated, and no cervical lymphadenopathy. Supple, full range of motion without nuchal rigidity, or vertebral point tenderness. Chest/axilla: Normal chest wall appearance and motion. Nontender with no deformity. No lesions are appreciated. Cardiovascular: Regular rate and rhythm with a normal S1 and S2. No gallops, murmurs, or rubs. Normal PMI, no JVD. No pulse deficits. Respiratory: Lungs have equal breath sounds bilaterally, clear to auscultation and percussion. No rales, rhonchi or wheezes noted. No increased work of breathing, no retractions or nasal flaring. Abdomen/GI: Soft, with normal bowel sounds. No distension or tympany. No guarding or rebound. No evidence of tenderness throughout. Back: No spinal tenderness. No costovertebral tenderness. Female : Normal external genitalia. Skin: Warm, dry with normal turgor. Normal color with no rashes, no lesions, and no evidence of cellulitis. MS/ Extremity: Pulses equal, no cyanosis. Neurovascular intact. Full, normal range of motion. Longstanding left-sided hemiparesis. Neuro: Awake and alert, GCS 15, oriented to person, place, time, and situation. Longstanding left hemiparesis. No new neurologic deficits. Psych: Awake, alert, with orientation to person, place and time. Behavior, mood, and affect are within normal limits 03:55 ECG was reviewed by the Attending Physician. EKG 2044, normal sinus rhythm. Vital Signs: 09/04 20:42 BP 115 / 75; Pulse 63; Resp 19; Temp 97.5(TE); Pulse Ox 100% ; Weight 68.04 kg; Height tm6 5 ft. 2 in. ; Pain 10/10; 21:51 BP 133 / 105; Pulse 63; Pulse Ox 96% on R/A; tm6 20:42 Body Mass Index 27.44 (68.04 kg, 157.48 cm) tm6 20:42 Pain Scale: Adult tm6 MDM: 20:38 Patient medically screened. sp4 09/05 03:57 Differential Diagnosis altered mental status, flu, Anxiety attack. Data reviewed: vital sp4 signs, nurses notes. Data reviewed: EMS record, old medical records, EKG. ED course: Patient much improved. Stable for discharge home.. 09/04 20:38 Order name: EKG - Nurse/Tech; Complete Time: 20:51 sp4 EC:55 Rate is 64 beats/min. Rhythm is regular, Normal Sinus Rhythm. QRS [place] is Normal. MD sp4 interval is normal. QRS interval is normal. QT interval is normal. No Q waves. T waves are Normal. No ST changes noted. Clinical impression: No evidence of ischemia. Interpreted by me. Reviewed by me. Administered Medications: 09/04 21:14 Drug: Diazepam PO 5 mg PO once Route: PO; tm6 21:14 Drug: [place] PO 10 mg-325 mg 1 tabs PO once Route: PO; tm6 21:14 Drug: Ibuprofen PO 800 mg PO once Route: PO; tm6 Disposition: 09/05 04:31 Chart complete. sp4 Disposition Summary: 09/05/23 22:00 Discharge Ordered Notes: Location: Home sp4 Problem: new sp4 Symptoms: have improved sp4 Condition: Stable sp4 Diagnosis - Chest pain, unspecified sp4 - Acute anxiety attack sp4 Followup: sp4 - With: Josse Olson MD - When: 7 - 10 days - Reason: Recheck today's complaints Discharge Instructions: - Discharge Summary Sheet sp4 - Managing Anxiety, Adult sp4 Forms: - Patient Portal Instructions sp4 Prescriptions: - Valium 5 mg Oral tablet - take 1 tablet ORAL route once daily As needed PRN anxiety; 6 tablet; Refills: sp4 0, Product Selection Permitted Signatures: Uriel Cannon MD MD sp4 Greg Allen RN RN tm6
[2023-09-05 22:50] VITALS: BP 133/105; TEMP 97.5; O2SAT 96
--- NOTE | 2023-09-08 13:34 | EKG ---
Test Date: 2023-09-05 Test Time: 20:45:52 Pin Game Machine Inspector: LINSEY MEASUREMENT RESULTS: Intervals: Rate: 64 MD: 202 QRSD: 84 QT: 430 QTc: 443 [place]: P: 52 MD: 202 QRS: 0 T: 147 INTERPRETIVE STATEMENTS: Normal sinus rhythm Possible Left atrial enlargement Left ventricular hypertrophy with repolarization abnormality Abnormal ECG Compared to ECG 09/04/2023 20:49:26 Sinus bradycardia no longer present Atrial premature complex(es) no longer present Fusion complex(es) no longer present Ventricular premature complex(es) no longer present Electronically Signed On 09-08-23 13:28:19 CDT by Josse Olson
== END 2023-09-05 22:23 | disposition home or self-care (01) ==
LOC: ER 20:32
DX: F41.0 Panic disorder [episodic paroxysmal anxiety] (principal)
CPT/HCPCS: 93005; 99285

== ENCOUNTER 2023-09-06 17:54 | Emergency (ER) | payer SELFPAY ==
[2023-09-06] MEDS ORDERED: LORazepam 2 MG/ML VIAL ONE (18:55)
[2023-09-06] MEDS ORDERED: CLOPIDOGREL 75 MG TABLET ONE (18:56)
--- NOTE | 2023-09-06 19:01 | RAD REPORT ---
EXAM DESCRIPTION: RAD - Chest Single View - 09/06/2023 6:55 pm CLINICAL HISTORY: CHEST PAIN Chest pain. COMPARISON: Chest Single View dated 09/04/2023; Chest Single View dated 09/01/2023; Chest Single View dated 08/29/2023; Chest Single View dated 08/26/2023 FINDINGS: Portable technique limits examination quality. The lungs are grossly clear. The heart is upper limit of normal in size. No displaced fractures. IMPRESSION: No acute intrathoracic process suspected.
[2023-09-06 19:04] LABS: Absolute Basophils 0.1 K/uL (0-0.5); Absolute Eosinophils 0.1 K/uL (0-0.5); Absolute Lymphocytes (CBC) 1.5 K/uL (0.7-4.9); Absolute Monocytes 0.5 K/uL (0.1-1.3); Absolute Neutrophil 3.7 K/uL (1.8-8.0); Eosinophils % 1.1 % (0-4.4); Hematocrit 31.4 % (36.0-45.0); Hemoglobin 10.7 g/dL (12.0-15.0); Lymphocytes % 25.1 % (15.3-44.8); MCH 33.4 pg (27.0-35.0); MCV 98.1 fL (80-100); MPV 6.9 fL (7.6-11.3); Monocytes % 8.6 % (3.3-12.3); Neutrophils % 64.2 % (41.7-73.7); Platelets 257 thou/uL (152-406); Red Cell Distribution Width 15.2 % (12.1-15.2)
[2023-09-06 19:17] LABS: Anion Gap 5.9 mEq/L (5.0-15.0); Magnesium 1.8 mg/dL (1.6-2.4); Potassium 3.9 mEq/L (3.5-5.1); Troponin High Sensitivity 23.4 pg/mL (<58.9)
--- NOTE | 2023-09-06 19:52 | RAD REPORT ---
EXAM DESCRIPTION: RAD - Shoulder Right 2 View - 09/06/2023 7:46 pm CLINICAL HISTORY: PAIN COMPARISON: <Comparisons> FINDINGS: No acute fracture or dislocation seen.
--- NOTE | 2023-09-06 20:45 | EDPHYS ---
Physician Documentation [facility] Name: Geetha Khan Age: 48 yrs Sex: Female : 1975 Arrival Date: 09/06/2023 Time: 17:54 Bed 6 Private MD: ED Physician Russell Rodriguez HPI: 09/05 18:45 This 48 yrs old Female presents to ER via EMS with complaints of Anxiety, Chest Pain. cp 18:45 The patient or guardian reports chest pain that is located primarily in the anterior cp chest wall. 18:45 Onset: 2 hour(s) ago. The pain does not radiate. Associated signs and symptoms: cp Pertinent positives: anxiety and right shoulder pain, Pertinent negatives: cough, shortness of breath, vomiting. 18:45 Duration: The patient or guardian reports a single episode, that is still ongoing. cp 18:45 Severity of pain: in the emergency department the pain is unchanged despite EMS cp interventions. 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 - Infectious Disease History:: Denies. - Social history:: Smoking status: Patient reports the use of cigarette tobacco products, 6 cigarettes per day. ROS: 18:50 Constitutional: Negative for body aches, chills, fever, poor PO intake, cp 18:50 Cardiovascular: Positive for chest pain, cp 18:50 Respiratory: Negative for cough, shortness of breath, wheezing, 18:50 Abdomen/GI: Negative for abdominal pain, vomiting, diarrhea, constipation, 18:50 MS/extremity: Positive for pain, of the right shoulder, 18:50 Neuro: Negative for altered mental status, headache, weakness, 18:50 Psych: Positive for anxiety, 18:50 All other systems are negative, Exam: 18:33 ECG was reviewed by the Attending Physician. cp 18:55 Constitutional: The patient appears in no acute distress, alert, awake, non-toxic, well cp developed, well nourished, 18:55 Head/Face: Normocephalic, atraumatic. cp 18:55 Eyes: Periorbital structures: appear normal, Conjunctiva: normal, no exudate, no injection, Sclera: no appreciated abnormality, Lids and lashes: appear normal, bilaterally, 18:55 ENT: External ear(s): are unremarkable, Nose: is normal, Mouth: Lips: moist, Oral mucosa: moist, Posterior pharynx: Airway: no evidence of obstruction, patent, 18:55 Chest/axilla: Inspection: normal, 18:55 Cardiovascular: Rate: bradycardic, Rhythm: regular, JVD: is not appreciated, 18:55 Respiratory: the patient does not display signs of respiratory distress, Respirations: normal, no use of accessory muscles, no retractions, labored breathing, is not present, Breath sounds: are clear throughout, no decreased breath sounds, no stridor, no wheezing, 18:55 Abdomen/GI: Inspection: abdomen appears normal, Palpation: abdomen is soft and non-tender, in all quadrants, 18:55 Musculoskeletal/extremity: Extremities: noted in the right shoulder: pain, tenderness, There is no evidence of decreased ROM, deformity, 18:55 Neuro: Orientation: to person, place \T\ time. Mentation: is normal, Vital Signs: 18:21 BP 112 / 77; Pulse 54; Resp 16; Temp 98.1; Pulse Ox 98% on R/A; Weight 59.42 kg; Height al5 5 ft. 4 in. ; Pain 10/10; 19:07 BP 122 / 82; Pulse 60; Resp 16; Pulse Ox 100% on R/A; al5 20:53 BP 128 / 89; Pulse 59; Resp 18; Temp 98.1; Pulse Ox 100% on R/A; Pain 0/10; kd4 18:21 Body Mass Index 22.49 (59.42 kg, 162.56 cm) al5 18:21 Pain Scale: Adult al5 20:53 Pain Scale: Adult kd4 MDM: 19:00 Differential diagnosis: abnormal EKG, acute myocardial infarction, anxiety, chest wall cp pain, stable angina, unstable angina. 20:44 Patient medically screened. 20:44 Data reviewed: vital signs, nurses notes, lab test result(s), EKG, radiologic studies, cp plain films, and as a result, I will discharge patient. 20:44 Special discussion: Based on the patient's history, exam, and Dx evaluation, there is cp no indication for emergent intervention or inpatient Tx. It is understood by the patient/guardian that if the Sx's persist or worsen they need to return immediately for re-evaluation. 09/05 18:41 Order name: Basic Metabolic Panel; Complete Time: 19:17 cp 09/05 19:18 Interpretation: Normal except: CRE 1.07; GFR 64. cp 09/05 18:41 Order name: CBC with Diff; Complete Time: 19:17 cp 09/05 19:18 Interpretation: Normal except: RBC 3.20; HGB 10.7; HCT 31.4; MPV 6.9. cp 09/05 18:41 Order name: Magnesium; Complete Time: 19:17 cp 09/05 18:41 Order name: Troponin HS; Complete Time: 19:17 cp 09/05 19:19 Interpretation: Reviewed. 09/05 18:41 Order name: XRAY Chest (1 view); Complete Time: 19:17 cp 09/05 18:57 Order name: XRAY Shoulder RIGHT 2 view cp 09/05 18:41 Order name: EKG; Complete Time: 18:41 cp 09/05 18:41 Order name: Cardiac monitoring; Complete Time: 18:42 cp 09/05 18:41 Order name: EKG - Nurse/Tech; Complete Time: 18:42 cp 09/05 18:41 Order name: IV Saline Lock; Complete Time: 18:52 cp 09/05 18:41 Order name: Labs collected and sent; Complete Time: 18:52 cp 09/05 18:41 Order name: O2 Per Protocol; Complete Time: 18:52 cp 09/05 18:41 Order name: O2 Sat Monitoring; Complete Time: 18:42 cp EC:33 Rate is 57 beats/min. Rhythm is regular. OH interval is normal. QRS interval is normal. cp QT interval is normal. T waves are Inverted in leads I, II, aVL, V5, V6. Interpreted by me. Reviewed by me. Administered Medications: 19:06 Drug: Ativan IVP 1 mg IVP once Route: IVP; Site: right antecubital; al5 19:06 Drug: Clopidogrel PO 75 mg PO once Route: PO; al5 Disposition Summary: 09/06/23 20:44 Discharge Ordered Notes: Location: Home cp Problem: an ongoing problem cp Symptoms: have improved cp Condition: Stable cp Diagnosis - Chest pain, unspecified cp - Anxiety disorder, unspecified cp - Pain in right shoulder cp Followup: cp - With: Private Physician - When: 2 - 3 days - Reason: Recheck today's complaints Discharge Instructions: - Discharge Summary Sheet cp - Nonspecific Chest Pain, Adult cp - Shoulder Pain cp - Shoulder Exercises-SportsMed cp - Managing Anxiety, Adult cp Forms: - Medication Reconciliation Form cp - Antibiotic Education cp - Prescription Opioid Use cp - Patient Portal Instructions cp - Leadership Thank You Letter cp Prescriptions: - Prednisone 20 mg Oral Tablet - take 1 tablet ORAL route once daily for 5 days; 5 tablet; Refills: 0, Product cp Selection Permitted Addendum: 09/08/2023 05:47 I was immediately available for consultation during this patient's visit. I did not e c2 personally see the patient or discuss the patient with the SEGUN. . Signatures: Dispatcher [employer] Michael Bates PA PA cp Corral, Edwin, MD MD ec2 Anayeli Otero RN RN al5
--- NOTE | 2023-09-06 20:45 | ER ---
Nurse's Notes [facility] Name: Geetha Khan Age: 48 yrs Sex: Female : 1975 Arrival Date: 09/06/2023 Time: 17:54 Bed 6 Private MD: Diagnosis: Chest pain, unspecified;Anxiety disorder, unspecified;Pain in right shoulder Presentation: 09/05 18:21 Chief complaint: EMS states: patient got into a heated argument with family and started al5 to experience chest pain and anxiety. Onset happened within the past 2 hours. Coronavirus screen: Client denies travel out of the [place] in the last 14 days. At this time, the client does not indicate any symptoms associated with coronavirus-19. Ebola Screen: No symptoms or risks identified at this time. Initial Sepsis Screen: Does the patient meet any 2 criteria? No. Patient's initial sepsis screen is negative. Does the patient have a suspected source of infection? No. Patient's initial sepsis screen is negative. Risk Assessment: Do you want to hurt yourself or someone else? Patient reports no desire to harm self or others. Onset of symptoms was September 06, 2023. Care prior to arrival: None. 18:21 Method Of Arrival: EMS: [facility] al5 18:21 Acuity: CORRINA 2 al5 Triage Assessment: 18:31 General: Appears in no apparent distress. Behavior is calm, cooperative. Pain: al5 Complains of pain in chest Pain currently is 10 out of 10 on a pain scale. Pain began 2 hours ago. Neuro: Level of Consciousness is awake, alert, Oriented to person, place, time, situation, Speech is normal. Cardiovascular: Patient's skin is warm and dry. Respiratory: Reports Airway is patent Trachea midline. Derm: Skin is intact. 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 - Infectious Disease History:: Denies. - Social history:: Smoking status: Patient reports the use of cigarette tobacco products, 6 cigarettes per day. Screenin:34 [facility] ED Fall Risk Assessment (Adult) History of falling in the last 3 months, al5 including since admission No falls in past 3 months (0 pts) Confusion or Disorientation No (0 pts) Intoxicated or Sedated No (0 pts) Impaired Gait Yes (1 pt) Mobility Assist Device Used Yes (1 pt) Altered Elimination No (0 pt) Score/Fall Risk Level 0 - 2 = Low Risk Oriented to surroundings, Maintained a safe environment, Hourly rounding (assess needs \T\ fall precautionary measures) done, Used ambulatory aids as needed (educated on \T\ assisted with). Abuse screen: Denies threats or abuse. Denies injuries from another. Nutritional screening: No deficits noted. Tuberculosis screening: No symptoms or risk factors identified. Assessment: 18:39 Pain: Pain does not radiate. al5 20:18 General: Pt noted to have BM. Pt cleaned and placed in a clean brief. Pt noted to have cm10 excoriation to her bottom.. 20:26 Reassessment: Pt states that she feels better and would like to go home. Patient states cm10 feeling better. Patient states symptoms have improved. Vital Signs: 18:21 BP 112 / 77; Pulse 54; Resp 16; Temp 98.1; Pulse Ox 98% on R/A; Weight 59.42 kg; Height al5 5 ft. 4 in. ; Pain 10/10; 19:07 BP 122 / 82; Pulse 60; Resp 16; Pulse Ox 100% on R/A; al5 20:53 BP 128 / 89; Pulse 59; Resp 18; Temp 98.1; Pulse Ox 100% on R/A; Pain 0/10; kd4 18:21 Body Mass Index 22.49 (59.42 kg, 162.56 cm) al5 18:21 Pain Scale: Adult al5 20:53 Pain Scale: Adult kd4 ED Course: 18:06 Patient arrived in ED. ec2 18:10 Michael Nguyen PA is PHCP. cp 18:10 Russell Rodriguez MD is Attending Physician. cp 18:20 Anayeli Otero, YANETH is Primary Nurse. al5 18:30 Triage completed. al5 18:33 EKG done, by ED staff, reviewed by Michael LEBRON. al5 18:34 No provider procedures requiring assistance completed. O2 via room air. al5 18:52 Basic Metabolic Panel Sent. al5 18:52 CBC with Diff Sent. al5 18:52 Magnesium Sent. al5 18:52 Troponin HS Sent. al5 18:53 Inserted saline lock: 20 gauge in right antecubital area, using aseptic technique. al5 18:53 Patient has correct armband on for positive identification. Bed in low position. Call al5 light in reach. Side rails up X2. Client placed on continuous cardiac and pulse oximetry monitoring. NIBP monitoring applied. telemetry monitor on. 18:57 XRAY Chest (1 view) In Process Unspecified. EDMS 19:48 XRAY Shoulder RIGHT 2 view In Process Unspecified. EDMS 20:55 IV discontinued, discharge. kd4 20:55 Provided Education on: d/c instruction. kd4 20:56 Arm band placed on right wrist. kd4 Administered Medications: 19:06 Drug: Ativan IVP 1 mg IVP once Route: IVP; Site: right antecubital; al5 19:06 Drug: Clopidogrel PO 75 mg PO once Route: PO; al5 Medication: 20:56 VIS not applicable for this client. kd4 Outcome: 20:44 Discharge ordered by . cp 20:54 Discharged to home via wheelchair, kd4 20:54 Condition: stable 20:54 Discharge instructions given to patient, d/c instruction, patient cleaned, diapper changed. 20:57 Patient left the ED. kd4 Signatures: Dispatcher [employer] EDMichael Banegas PA PA cp Martinez, Clarissa, RN RN cm10 Russell Rodriguez MD MD ec2 Jolly Mcintyre RN RN kd4 Anayeli Otero RN RN al5
[2023-09-06 22:10] VITALS: BP 128/89; TEMP 98.1; O2SAT 100
--- NOTE | 2023-09-09 13:10 | EKG ---
Test Date: 2023-09-06 Test Time: 18:26:35 Sand Blaster: LISS MEASUREMENT RESULTS: Intervals: Rate: 57 NJ: 200 QRSD: 86 QT: 458 QTc: 445 [place]: P: 53 NJ: 200 QRS: 18 T: 153 INTERPRETIVE STATEMENTS: Sinus bradycardia with sinus arrhythmia Left ventricular hypertrophy with repolarization abnormality Abnormal ECG Compared to ECG 09/05/2023 20:45:52 Sinus rhythm no longer present Electronically Signed On 09-09-23 13:04:04 CDT by Josse Olson
== END 2023-09-06 20:57 | disposition home or self-care (01) ==
LOC: ER 17:54
DX: R07.9 Chest pain, unspecified (principal); F41.9 Anxiety disorder, unspecified; M25.511 Pain in right shoulder
CPT/HCPCS: 36415; 71045; 80048; 83735; 84484; 85025; 93005; 96374; 99285

== ENCOUNTER 2023-09-07 14:33 | Emergency (ER) | payer SELFPAY ==
[2023-09-07] MEDS ORDERED: ACETAMINOPHEN 500 MG TAB ONE (14:50)
[2023-09-07] MEDS ORDERED: NITROGLYCERIN 0.4 MG/TAB SL ONE (15:09)
--- NOTE | 2023-09-07 15:31 | ER ---
Nurse's Notes [facility] Name: Geetha Khan Age: 48 yrs Sex: Female : 1975 Arrival Date: 09/07/2023 Time: 14:33 Bed 13 Private MD: Diagnosis: chest pain, chronic Presentation: 09/06 14:41 Chief complaint: Patient states: mid sternal chest pain x2 days. worse today rated kc6 10/10. Coronavirus screen: At this time, the client does not indicate any symptoms associated with coronavirus-19. Ebola Screen: No symptoms or risks identified at this time. Initial Sepsis Screen: Does the patient meet any 2 criteria? No. Patient's initial sepsis screen is negative. Does the patient have a suspected source of infection? No. Patient's initial sepsis screen is negative. Risk Assessment: Do you want to hurt yourself or someone else? Patient reports no desire to harm self or others. Onset of symptoms was September 07, 2023. 14:41 Method Of Arrival: EMS: [facility] kc6 14:41 Acuity: CORRINA 3 kc6 Triage Assessment: 14:42 General: Appears in no apparent distress. comfortable, unkempt, well developed, kc6 Behavior is calm, cooperative, appropriate for age. Pain: Complains of pain in mid-sternal area Pain does not radiate. Pain currently is 10 out of 10 on a pain scale. Pain began 2-3 days ago. Is continuous. EENT: No signs and/or symptoms were reported regarding the EENT system. 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 Cardiovascular: Reports chest pain, Heart tones S1 S2 present Capillary refill < 3 seconds. Respiratory: Airway is patent Trachea midline Respiratory effort is even, unlabored, Respiratory pattern is regular, symmetrical. GI: No signs and/or symptoms were reported involving the gastrointestinal system. : No signs and/or symptoms were reported regarding the genitourinary system. Derm: No signs and/or symptoms reported regarding the dermatologic system. Skin is intact, is healthy with good turgor, Skin is pink, warm \T\ dry. Musculoskeletal: No signs and/or symptoms reported regarding the musculoskeletal system. Circulation, motion, and sensation intact. Capillary refill < 3 seconds, Range of motion: intact in all extremities. 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 - Infectious Disease History:: Denies. - Social history:: Smoking status: Patient reports the use of cigarette tobacco products. Screenin:44 [facility] ED Fall Risk Assessment (Adult) History of falling in the last 3 months, kc6 including since admission Yes- fall prone (multiple falls) (3 pts) Confusion or Disorientation No (0 pts) Intoxicated or Sedated No (0 pts) Impaired Gait Yes (1 pt) Mobility Assist Device Used Yes (1 pt) Altered Elimination No (0 pt) Score/Fall Risk Level 3 or more points = High Risk. Abuse screen: Denies threats or abuse. Denies injuries from another. Nutritional screening: No deficits noted. Tuberculosis screening: No symptoms or risk factors identified. Assessment: 14:44 Reassessment: please see triage. [facility] 15:34 Reassessment: Patient appears in no apparent distress at this time. No changes from [facility] previously documented assessment. Patient and/or family updated on plan of care and expected duration. Pain level reassessed. Patient is alert, oriented x 3, equal unlabored respirations, skin warm/dry/pink. Patient states feeling better. Patient states symptoms have improved. Vital Signs: 14:41 BP 114 / 74; Pulse 56; Resp 16 S; Temp 98.2(TE); Pulse Ox 100% on R/A; Pain 10/10; kc6 14:41 Pain Scale: Adult [facility] ED Course: 14:34 Patient arrived in ED. sb4 14:34 [facility] Bradshaw [facility] sb4 14:34 Kye De Anda MD is Attending Physician. sb4 14:41 Melchor, Cate, RN is Primary Nurse. kc6 14:42 Triage completed. kc6 14:42 Arm band placed on. EKG completed in triage. Results shown to MD. kc6 14:45 Patient has correct armband on for positive identification. Bed in low position. Call kc6 light in reach. Side rails up X2. pilot captain on. Pulse ox on. NIBP on. 15:09 Troponin High Sensitivity Sent. kc6 15:46 Provided Education on: USAGE OF NITROGLYCERIN. kc6 15:46 No provider procedures requiring assistance completed. Patient did not have IV access kc6 during this emergency room visit. Administered Medications: 14:52 Drug: Acetaminophen PO 1000 mg PO once Route: PO; kc6 15:34 Follow up: Response: No adverse reaction kc6 15:11 Drug: Nitroglycerin Sublingual 0.4 mg Sublingual once; every five minute if needed x3 kc6 Route: Sublingual; 15:34 Follow up: Response: No adverse reaction kc6 Medication: 15:47 VIS not applicable for this client. kc6 Outcome: 15:31 Discharge ordered by MD. sb4 15:46 Discharged to home via wheelchair, with significant other, pt states she will wait for kc6 her in the lobby 15:46 Condition: good 15:46 Discharge instructions given to patient, Instructed on discharge instructions, follow up and referral plans. medication usage, Demonstrated understanding of instructions, follow-up care, medications, Prescriptions given X 1, 15:47 Patient left the ED. kc6 Signatures: Cate Melchor RN RN kc6 Kalli Bradshaw PA-C PA-C sb4
--- NOTE | 2023-09-07 15:31 | EDPHYS ---
Physician Documentation [facility] Name: Geetha Khan Age: 48 yrs Sex: Female : 1975 Arrival Date: 09/07/2023 Time: 14:33 Bed 13 Private MD: ED Physician Kye De Anda HPI: 09/06 17:10 This 48 yrs old Female presents to ER via EMS with complaints of Chest Pain. sb4 17:10 Patient presents with complaints of chest pain. Has been going on for 2 days now. sb4 States that her was not home to give her her nitro so she called 911. Denies any shortness of breath. 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 - Infectious Disease History:: Denies. - Social history:: Smoking status: Patient reports the use of cigarette tobacco products. ROS: 17:10 Constitutional: Negative for fever, chills, and weight loss, sb4 17:10 Cardiovascular: Positive for chest pain, 17:10 All other systems are negative, Exam: 17:10 Constitutional: This is a well developed, well nourished patient who is awake, alert, sb4 and in no acute distress. Head/Face: Normocephalic, atraumatic. Eyes: Extra-ocular motions intact. Periorbital areas with no swelling, redness, or edema. Cardiovascular: Regular rate and rhythm with a normal S1 and S2. Respiratory: Lungs have equal breath sounds bilaterally, clear to auscultation and percussion. No rales, rhonchi or wheezes noted. No increased work of breathing, no retractions or nasal flaring. Abdomen/GI: Soft, non-tender, no distension. Skin: Warm, dry with normal turgor. Normal color with no rashes, no lesions, and no evidence of cellulitis. Vital Signs: 14:41 BP 114 / 74; Pulse 56; Resp 16 S; Temp 98.2(TE); Pulse Ox 100% on R/A; Pain 10/10; kc6 14:41 Pain Scale: Adult kc6 MDM: 14:35 Patient medically screened. sb4 17:12 Data reviewed: vital signs, nurses notes, EMS record, lab test result(s), EKG, sb4 radiologic studies, and as a result, I will discharge patient. Counseling: I had a detailed discussion with the patient and/or guardian regarding the historical points, exam findings, and any diagnostic results supporting the discharge/admit diagnosis, lab results, radiology results, the need for outpatient follow up, a furnace checker, to return to the emergency department if symptoms worsen or persist or if there are any questions or concerns that arise at home. 09/06 14:44 Order name: Troponin High Sensitivity; Complete Time: 16:11 sb4 09/06 14:35 Order name: EKG - Nurse/Tech; Complete Time: 14:45 sb4 EC:57 Rate is 54 beats/min. Rhythm is regular, Sinus bradycardia. UT interval is normal at sb4 200 msec. QRS interval is normal at 88 msec. QT interval is prolonged at 458 msec. No Q waves. Clinical impression: Abnormal EKG without significant change. Interpreted by me. Reviewed by me. Administered Medications: 14:52 Drug: Acetaminophen PO 1000 mg PO once Route: PO; kc6 15:34 Follow up: Response: No adverse reaction kc6 15:11 Drug: Nitroglycerin Sublingual 0.4 mg Sublingual once; every five minute if needed x3 kc6 Route: Sublingual; 15:34 Follow up: Response: No adverse reaction kc6 Disposition: 15:57 Co-signature as Attending Physician, Kye De Anda MD I reviewed the patient's care rt provided by the Advanced Practice Provider and agree with the diagnosis and treatment plan. Disposition Summary: 09/07/23 15:31 Discharge Ordered Notes: Location: Home sb4 Problem: new sb4 Symptoms: have improved sb4 Condition: Stable sb4 Diagnosis - chest pain, chronic sb4 Followup: sb4 - With: Emergency Department - When: As needed - Reason: Trouble breathing, Worsening of condition Discharge Instructions: - Discharge Summary Sheet sb4 - Nonspecific Chest Pain, Adult, [id number] sb4 Forms: - Patient Portal Instructions sb4 - Leadership Thank You Letter sb4 Prescriptions: - Nitrostat 0.4 mg Sublingual Tablet, Sublingual - place 1 tablet SUBLINGUAL route one time As needed - at the first sign of an sb4 attack; no more than 3 tablets are recommended within a 15 minute period.; 25 tablet; Refills: 0, Product Selection Permitted Signatures: Dispatcher [employer] Cate David RN RN kc6 Kalli Bradshaw PAHermes PA-Kelly sb4 Kye De Anda MD MD rt
[2023-09-07 16:00] VITALS: BP 114/74; TEMP 98.2; O2SAT 100
--- NOTE | 2023-09-08 13:29 | EKG ---
Test Date: 2023-09-07 Test Time: 14:49:11 Transit Driver: JOE MEASUREMENT RESULTS: Intervals: Rate: 54 MI: 200 QRSD: 88 QT: 458 QTc: 434 Point: P: 29 MI: 200 QRS: -3 T: 136 INTERPRETIVE STATEMENTS: Sinus bradycardia Left ventricular hypertrophy with repolarization abnormality Abnormal ECG Compared to ECG 09/04/2023 20:49:26 Atrial premature complex(es) no longer present Fusion complex(es) no longer present Ventricular premature complex(es) no longer present Electronically Signed On 09-08-23 13:27:20 CDT by Josse Olson
== END 2023-09-07 15:47 | disposition home or self-care (01) ==
LOC: ER 14:33
DX: R07.9 Chest pain, unspecified (principal)
CPT/HCPCS: 36415; 84484; 93005; 99284

== ENCOUNTER 2023-09-08 15:26 | Emergency (ER) | payer SELFPAY ==
--- NOTE | 2023-09-08 17:12 | EDPHYS ---
Physician Documentation [facility] Name: Geetha Khan Age: 48 yrs Sex: Female : 1975 Arrival Date: 09/08/2023 Time: 15:26 Bed 12 Private MD: ED Physician Kye De Anda HPI: 09/07 16:46 This 48 yrs old Female presents to ER via EMS with complaints of Chest Pain, Shoulder rt Pain - Right. 16:46 Patient presents to the ED for the 6-day neuro for chest pain. This occurred while rt prior to arrival and patient was watching TV. She did not take anything for this. States that this is similar to previous episodes. Denies other acute complaints, symptoms are moderate in severity, no other aggravating elevating factors.. 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 - Infectious Disease History:: Denies. - Social history:: Smoking status: Patient reports the use of cigarette tobacco products, smokes one-half pack cigarettes per day. - Family history:: not pertinent. ROS: 16:46 Constitutional: Negative for fever, chills, and weight loss, Respiratory: Negative for rt shortness of breath, cough, wheezing, and pleuritic chest pain, Abdomen/GI: Negative for abdominal pain, nausea, vomiting, diarrhea, and constipation, MS/Extremity: Negative for injury and deformity, Skin: Negative for injury, rash, and discoloration, Neuro: Negative for headache, weakness, numbness, tingling, and seizure, 16:46 Cardiovascular: Positive for chest pain, Negative for edema, Exam: 16:46 Constitutional: This is a well developed, well nourished patient who is awake, alert, rt and in no acute distress. Head/Face: Normocephalic, atraumatic. Chest/axilla: Normal chest wall appearance and motion. Nontender with no deformity. No lesions are appreciated. Cardiovascular: Regular rate and rhythm with a normal S1 and S2. No gallops, murmurs, or rubs. Normal PMI, no JVD. No pulse deficits. Respiratory: Lungs have equal breath sounds bilaterally, clear to auscultation and percussion. No rales, rhonchi or wheezes noted. No increased work of breathing, no retractions or nasal flaring. Abdomen/GI: Soft, non-tender, with normal bowel sounds. No distension or tympany. No guarding or rebound. No evidence of tenderness throughout. Skin: Warm, dry with normal turgor. Normal color with no rashes, no lesions, and no evidence of cellulitis. MS/ Extremity: Pulses equal, no cyanosis. Neurovascular intact. Full, normal range of motion. Neuro: Awake and alert, GCS 15, oriented to person, place, time, and situation. Cranial nerves II-XII grossly intact. Motor strength 5/5 in all extremities. Sensory grossly intact. Cerebellar exam normal. Normal gait. 16:46 ECG was reviewed by the Attending Physician. Vital Signs: 15:35 BP 107 / 59; Pulse 56; Resp 16; Pulse Ox 99% ; Weight 74.84 kg; Height 5 ft. 2 in. ; cm10 Pain 10/10; 17:12 BP 101 / 64; Pulse 54; Resp 18; Pulse Ox 100% on R/A; cm10 15:35 Body Mass Index 30.18 (74.84 kg, 157.48 cm) cm10 15:35 Pain Scale: Adult cm10 MDM: 15:48 Patient medically screened. rt 19:43 Differential diagnosis: Chronic chest pain, NSTEMI. The patient was not given aspirin rt in the Emergency Department. Aspirin not given, patient refused. Data reviewed: vital signs, nurses notes, lab test result(s), EKG. Consideration of Admission/Observation Escalation of care including admission/observation considered. Chronic chest pain, troponin unremarkable, EKG unchanged, no indications for admission.. I considered the following discharge prescriptions or medication management in the emergency department Medications were administered in the Emergency Department. See MAR. Counseling: I had a detailed discussion with the patient and/or guardian regarding the historical points, exam findings, and any diagnostic results supporting the discharge/admit diagnosis, lab results, the need for outpatient follow up. 09/07 15:51 Order name: Troponin High Sensitivity; Complete Time: 17:09 rt 09/07 15:51 Order name: EKG; Complete Time: 15:52 rt 09/07 15:51 Order name: EKG - Nurse/Tech; Complete Time: 16:15 rt EC:46 Rate is 55 beats/min. Rhythm is regular, Sinus bradycardia with No ectopy. QRS [place] is rt Normal. MT interval is prolonged at 216 msec. QRS interval is normal. QT interval is normal. No Q waves. Administered Medications: 16:59 Not Given (Hemodynamic Parameters): nitroglycerin0.4 mg Sublingual once cm10 Disposition Summary: 09/08/23 17:11 Discharge Ordered Notes: Location: Home rt Problem: an ongoing problem rt Symptoms: are unchanged rt Condition: Stable rt Diagnosis - Chronic chest pain rt Followup: rt - With: Private Physician - When: 2 - 3 days - Reason: Discharge Instructions: - Discharge Summary Sheet rt - Nonspecific Chest Pain, Adult rt Forms: - Medication Reconciliation Form rt - Antibiotic Education rt - Prescription Opioid Use rt - Patient Portal Instructions rt - Leadership Thank You Letter rt Signatures: Dispatcher [employer] Kye Allen MD MD rt Kelsey Khan, RN RN cm10
--- NOTE | 2023-09-08 17:12 | ER ---
Nurse's Notes [facility] Name: Geetha Khan Age: 48 yrs Sex: Female : 1975 Arrival Date: 09/08/2023 Time: 15:26 Bed 12 Private MD: Diagnosis: Chronic chest pain Presentation: 09/07 15:35 Chief complaint: EMS states: Called to patient's home due to patient having chest pain cm10 and right shoulder pain. Pt rates pain 10/10. 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 Pt states that she was watching TV when the pain started. Coronavirus screen: Client denies travel out of the [place] in the last 14 days. At this time, the client does not indicate any symptoms associated with coronavirus-19. Ebola Screen: Patient denies travel to an Ebola-affected area in the 21 days before illness onset. No symptoms or risks identified at this time. Initial Sepsis Screen: Does the patient meet any 2 criteria? No. Patient's initial sepsis screen is negative. Does the patient have a suspected source of infection? No. Patient's initial sepsis screen is negative. Risk Assessment: Do you want to hurt yourself or someone else? Patient reports no desire to harm self or others. Onset of symptoms was September 08, 2023. 15:35 Method Of Arrival: EMS: [facility] cm10 15:35 Acuity: CORRINA 2 cm10 Triage Assessment: 15:37 General: Appears in no apparent distress. comfortable, Behavior is calm, cooperative. cm10 Pain: Complains of pain in chest and right shoulder. Neuro: No deficits noted. Level of Consciousness is awake, alert, obeys commands, Oriented to person, place, time, situation, Appropriate for age. Respiratory: No deficits noted. Airway is patent Respiratory effort is even, unlabored, Respiratory pattern is regular, symmetrical. Derm: No deficits noted. Skin is healthy with good turgor, Skin is pink, warm \T\ dry. 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 - Infectious Disease History:: Denies. - Social history:: Smoking status: Patient reports the use of cigarette tobacco products, smokes one-half pack cigarettes per day. - Family history:: not pertinent. Screenin:38 [facility] ED Fall Risk Assessment (Adult) History of falling in the last 3 months, cm10 including since admission Yes- single mechanical fall (1 pt) Confusion or Disorientation No (0 pts) Intoxicated or Sedated No (0 pts) Impaired Gait Yes (1 pt) Mobility Assist Device Used Yes (1 pt) Altered Elimination Yes (1 pt) Score/Fall Risk Level 3 or more points = High Risk Oriented to surroundings, Maintained a safe environment, Hourly rounding (assess needs \T\ fall precautionary measures) done. Abuse screen: Denies threats or abuse. Denies injuries from another. Nutritional screening: No deficits noted. Tuberculosis screening: No symptoms or risk factors identified. Assessment: 17:00 Reassessment: Patient is alert, oriented x 3, equal unlabored respirations, skin cm10 warm/dry/pink. Pt sleeping at this time. Respirations even and unlabored. Patient states feeling better. Patient states symptoms have improved. Vital Signs: 15:35 BP 107 / 59; Pulse 56; Resp 16; Pulse Ox 99% ; Weight 74.84 kg; Height 5 ft. 2 in. ; cm10 Pain 10/10; 17:12 BP 101 / 64; Pulse 54; Resp 18; Pulse Ox 100% on R/A; cm10 15:35 Body Mass Index 30.18 (74.84 kg, 157.48 cm) cm10 15:35 Pain Scale: Adult cm10 ED Course: 15:34 Patient arrived in ED. hb 15:34 Kelsey Khan, RN is Primary Nurse. cm10 15:37 Triage completed. cm10 15:38 Arm band placed on Patient placed in an exam room, on a stretcher, on playground monitor, cm10 on pulse oximetry. 15:39 Patient has correct armband on for positive identification. Bed in low position. Call cm10 light in reach. Side rails up X2. Provided Education on: ER process and procedures. Client placed on continuous cardiac and pulse oximetry monitoring. NIBP monitoring applied. awake overnight monitor on. 15:39 No provider procedures requiring assistance completed. cm10 15:47 Kye De Anda MD is Attending Physician. rt 16:15 EKG done, by ED staff, reviewed by Kye De Anda MD. em1 16:35 Initial lab(s) drawn, by me, sent to lab. Inserted saline lock: 24 gauge in right hand, cm10 using aseptic technique. Blood collected. Missed attempt(s): 22 gauge in right hand. Bleeding controlled, band aid applied, catheter tip intact. 16:35 Troponin High Sensitivity Sent. cm10 17:28 IV discontinued, intact, bleeding controlled, No redness/swelling at site. Pressure al5 dressing applied. Administered Medications: 16:59 Not Given (Hemodynamic Parameters): nitroglycerin0.4 mg Sublingual once cm10 Medication: 15:38 VIS not applicable for this client. cm10 Outcome: 17:11 Discharge ordered by MD. rt 17:28 Discharged to home via wheelchair, al5 17:28 Condition: stable 17:28 Discharge instructions given to patient, Instructed on discharge instructions, follow up and referral plans. Demonstrated understanding of instructions, follow-up care, 17:29 Patient left the ED. al5 Signatures: Reyes Khan em1 Kristin Barrera, RN RN Kye De Anda MD MD rt Kelsey Khan RN RN cm10 Anayeli Otero RN RN al5
[2023-09-09 01:48] VITALS: BP 101/64; O2SAT 100
--- NOTE | 2023-09-09 13:04 | EKG ---
Test Date: 2023-09-08 Test Time: 16:13:20 Prosthetic Technician: LIA MEASUREMENT RESULTS: Intervals: Rate: 55 ND: 216 QRSD: 88 QT: 468 QTc: 447 [place]: P: 55 ND: 216 QRS: 18 T: 141 INTERPRETIVE STATEMENTS: Sinus bradycardia with 1st degree AV block Possible Left atrial enlargement Anterior infarct, age undetermined ST & T wave abnormality, consider inferolateral ischemia Abnormal ECG Compared to ECG 09/07/2023 14:49:11 First degree AV block now present Myocardial infarct finding now present ST (T wave) deviation now present Possible ischemia now present Left ventricular hypertrophy no longer present Early repolarization no longer present Electronically Signed On 09-09-23 13:02:57 CDT by Josse Olson
== END 2023-09-08 17:29 | disposition home or self-care (01) ==
LOC: ER 15:26
DX: R07.9 Chest pain, unspecified (principal)
CPT/HCPCS: 36415; 84484; 93005; 99284

== ENCOUNTER 2023-09-09 22:17 | Emergency (ER) | payer OTHER, SELFPAY ==
[2023-09-09] MEDS ORDERED: ACETAMINOPHEN 500 MG TAB ONE (23:03)
[2023-09-09] MEDS ORDERED: MECLIZINE HCL 12.5 MG TAB ONE (23:03)
--- NOTE | 2023-09-10 01:13 | EDPHYS ---
Physician Documentation [facility] Name: Geetha Khan Age: 48 yrs Sex: Female : 1975 Arrival Date: 09/09/2023 Time: 22:17 Bed 3 Private MD: ED Physician Russell Rodriguez HPI: 09/08 23:00 This 48 yrs old Female presents to ER via EMS with complaints of Chest Pain. cp 23:00 The patient or guardian reports chest pain that is located primarily in the anterior cp chest wall. Onset: 30 minute(s) ago. Associated signs and symptoms: Pertinent positives: dizzy, lightheaded, Pertinent negatives: abdominal pain, diaphoresis, shortness of breath, syncope, vomiting. 23:00 The chest pain is described as constant. Duration: The patient or guardian reports a cp single episode, that is still ongoing. The patient has experienced similar episodes in the past, chronically. 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 - Infectious Disease History:: Denies. - Social history:: Smoking status: Patient reports the use of cigarette tobacco products. ROS: 23:05 Cardiovascular: Positive for chest pain, Negative for edema, palpitations, cp 23:05 Constitutional: Negative for body aches, chills, fever, poor PO intake, cp 23:05 ENT: Negative for drainage from ear(s), ear pain, sore throat, difficulty swallowing, difficulty handling secretions, 23:05 Respiratory: Negative for cough, wheezing, 23:05 Abdomen/GI: Negative for abdominal pain, vomiting, diarrhea, constipation, 23:05 Neuro: Positive for dizziness, Negative for altered mental status, syncope, 23:05 All other systems are negative, Exam: 22:55 ECG was reviewed by the Attending Physician. cp 23:10 Constitutional: The patient appears in no acute distress, alert, awake, cp non-diaphoretic, non-toxic, well developed, well nourished, 23:10 Head/Face: Normocephalic, atraumatic. cp 23:10 Eyes: Periorbital structures: appear normal, Conjunctiva: normal, Sclera: no appreciated abnormality, Lids and lashes: appear normal, bilaterally, 23:10 ENT: External ear(s): are unremarkable, Nose: is normal, Mouth: Lips: moist, Oral mucosa: pink and intact, moist, Posterior pharynx: is normal, airway is patent, no erythema, no exudate, 23:10 Chest/axilla: Inspection: normal, 23:10 Cardiovascular: Rate: normal, Rhythm: regular, JVD: is not appreciated, 23:10 Respiratory: the patient does not display signs of respiratory distress, Respirations: normal, no use of accessory muscles, no retractions, labored breathing, is not present, Breath sounds: are clear throughout, no decreased breath sounds, no stridor, no wheezing, 23:10 Abdomen/GI: Inspection: abdomen appears normal, Palpation: abdomen is soft and non-tender, in all quadrants, 23:10 Back: pain, is absent, 23:10 Neuro: Orientation: to person, place \T\ time. Mentation: is normal, Motor: no acute changes, Sensation: no acute changes, Vital Signs: 22:36 BP 127 / 81; Pulse 68; Resp 17; Temp 98.6; Pulse Ox 100% ; Weight 65.77 kg; Height 5 bm8 ft. 2 in. ; Pain 12/25; 09/09 01:03 BP 106 / 94; Pulse 73; Pulse Ox 100% on R/A; Pain /10; tm6 01:26 BP 126 / 80; Pulse 71; Resp 17 S; Pulse Ox 96% on R/A; ha1 09/08 22:36 Body Mass Index 26.52 (65.77 kg, 157.48 cm) 8 09/08 22:36 Pain Scale: Adult [facility] 09/09 01:03 Pain Scale: Adult tm6 MDM: 09/08 22:48 Patient medically screened. cp 09/09 01:12 Data reviewed: vital signs, nurses notes, lab test result(s), EKG, and as a result, I will discharge patient. 01:12 Differential diagnosis: abnormal EKG, acute myocardial infarction, pancreatitis, cp pleurisy, pneumonia, pneumothorax, stable angina, unstable angina. I considered the following discharge prescriptions or medication management in the emergency department Medications were administered in the Emergency Department. See MAR. Independent interpretation of the following test(s) in the Emergency Department EKG: See my EKG interpretation above. Counseling: I had a detailed discussion with the patient and/or guardian regarding the historical points, exam findings, and any diagnostic results supporting the discharge/admit diagnosis, lab results, to return to the emergency department if symptoms worsen or persist or if there are any questions or concerns that arise at home. Response to treatment: the patient's symptoms have mildly improved after treatment, and as a result, I will discharge patient. 09/09 00:04 Order name: Troponin High Sensitivity; Complete Time: 01:11 09/09 01:11 Interpretation: Reviewed. 09/08 22:32 Order name: EKG; Complete Time: 22:32 09/08 22:32 Order name: EKG - Nurse/Tech; Complete Time: 23:01 EC/24 22:55 Rate is 67 beats/min. Rhythm is regular. [place] interval is normal. QRS interval is normal. cp QT interval is normal. T waves are Inverted in leads I, aVL. Clinical impression: Abnormal EKG without significant change. Interpreted by me. Reviewed by me. Administered Medications: 23:06 Drug: Meclizine PO 25 mg PO once Route: PO; 3 09/09 00:30 Follow up: Response: No adverse reaction; Marked relief of symptoms ha1 09/08 23:06 Drug: Acetaminophen PO 1000 mg PO once Route: PO; lg3 09/09 00:30 Follow up: Response: No adverse reaction; Marked relief of symptoms ha1 Disposition Summary: 09/10/23 01:13 Discharge Ordered Notes: Location: Home cp Problem: an ongoing problem cp Symptoms: have improved cp Condition: Stable cp Diagnosis - Chest pain, unspecified cp Followup: cp - With: Private Physician - When: As needed - Reason: Worsening of condition Discharge Instructions: - Discharge Summary Sheet cp - Nonspecific Chest Pain, Adult cp - Aspirin and Your Heart cp Forms: - Medication Reconciliation Form cp - Antibiotic Education cp - Prescription Opioid Use cp - Patient Portal Instructions cp - Leadership Thank You Letter cp Signatures: Dispatcher [employer] Michael Bates PA PA cp Able, Lacie RN RN lg3 Rene Baca RN RN bm8 Aydee Ulrich RN ha1
--- NOTE | 2023-09-10 01:13 | ER ---
Nurse's Notes [facility] Name: Geetha Khan Age: 48 yrs Sex: Female : 1975 Arrival Date: 09/09/2023 Time: 22:17 Bed 3 Private MD: Diagnosis: Chest pain, unspecified Presentation: 09/08 22:36 Chief complaint: Patient states: i have chest pain, lightheaded, and dizzy for 30 mins. bm8 Coronavirus screen: At this time, the client does not indicate any symptoms associated with coronavirus-19. Ebola Screen: Patient negative for fever greater than or equal to 101.5 degrees Fahrenheit, and additional compatible Ebola Virus Disease symptoms Patient denies exposure to infectious person. Patient denies travel to an Ebola-affected area in the 21 days before illness onset. No symptoms or risks identified at this time. Initial Sepsis Screen: Does the patient meet any 2 criteria? No. Patient's initial sepsis screen is negative. Does the patient have a suspected source of infection? No. Patient's initial sepsis screen is negative. Risk Assessment: Do you want to hurt yourself or someone else? Patient reports no desire to harm self or others. Onset of symptoms was September 09, 2023 at 22:00. 22:36 Method Of Arrival: EMS: [facility] bm8 22:36 Acuity: CORRINA 2 bm8 Triage Assessment: 22:37 General: Appears in no apparent distress. comfortable, Behavior is calm, cooperative, bm8 appropriate for age. Pain: Complains of pain in chest Pain does not radiate. Neuro: Level of Consciousness is awake, alert, obeys commands, Oriented to person, place, time, situation, Appropriate for age. Cardiovascular: Reports chest pain, lightheadedness, dizzy Heart tones S1 S2 present Capillary refill < 3 seconds Patient's skin is warm and dry. Respiratory: Airway is patent Trachea midline Respiratory effort is even, unlabored, Respiratory pattern is regular, symmetrical, Breath sounds are clear bilaterally. GI: No deficits noted. No signs and/or symptoms were reported involving the gastrointestinal system. : No deficits noted. No signs and/or symptoms were reported regarding the genitourinary system. Derm: No deficits noted. No signs and/or symptoms reported regarding the dermatologic system. Musculoskeletal: No deficits noted. No signs and/or symptoms reported regarding the musculoskeletal system. 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 - Infectious Disease History:: Denies. - Social history:: Smoking status: Patient reports the use of cigarette tobacco products. Screenin/25 00:55 [facility] ED Fall Risk Assessment (Adult) History of falling in the last 3 months, tm6 including since admission No falls in past 3 months (0 pts) Confusion or Disorientation No (0 pts) Intoxicated or Sedated No (0 pts) Impaired Gait Yes (1 pt) Mobility Assist Device Used No (0 pt) Altered Elimination Yes (1 pt) Score/Fall Risk Level 0 - 2 = Low Risk Oriented to surroundings, Maintained a safe environment, Educated pt \T\ family on fall prevention, incl call for assistance when getting out of bed. Abuse screen: Denies threats or abuse. Denies injuries from another. Nutritional screening: No deficits noted. Tuberculosis screening: No symptoms or risk factors identified. Assessment: 00:10 General: Appears in no apparent distress. Behavior is calm, cooperative. Pain: tm6 Complains of pain in chest Pain does not radiate. 00:55 Pain: Pain began suddenly. Neuro: Level of Consciousness is awake, alert, obeys tm6 commands, Oriented to person, place, time, situation, Reports dizziness. Cardiovascular: Reports chest pain, Patient's skin is warm and dry. Respiratory: Airway is patent Respiratory effort is even, unlabored, Respiratory pattern is regular, symmetrical. GI: No signs and/or symptoms were reported involving the gastrointestinal system. Abdomen is round non-distended. : No signs and/or symptoms were reported regarding the genitourinary system. EENT: No signs and/or symptoms were reported regarding the EENT system. Derm: No signs and/or symptoms reported regarding the dermatologic system. Musculoskeletal: No signs and/or symptoms reported regarding the musculoskeletal system. 01:05 Reassessment: Patient and/or family updated on plan of care and expected duration. Pain ha1 level reassessed. Patient is alert, oriented x 3, equal unlabored respirations, skin warm/dry/pink. Patient states feeling better. Patient states symptoms have improved. Vital Signs: 09/08 22:36 BP 127 / 81; Pulse 68; Resp 17; Temp 98.6; Pulse Ox 100% ; Weight 65.77 kg; Height 5 bm8 ft. 2 in. ; Pain /; 09/09 01:03 BP 106 / 94; Pulse 73; Pulse Ox 100% on R/A; Pain 5/10; tm6 01:26 BP 126 / 80; Pulse 71; Resp 17 S; Pulse Ox 96% on R/A; ha1 09/08 22:36 Body Mass Index 26.52 (65.77 kg, 157.48 cm) bm8 09/08 22:36 Pain Scale: Adult bm8 09/09 01:03 Pain Scale: Adult tm6 ED Course: 09/08 22:18 Patient arrived in ED. ra3 22:22 Michael Nguyen PA is PHCP. cp 22:22 Russell Rodriguez MD is Attending Physician. cp 22:37 Triage completed. bm8 22:37 Arm band placed on right wrist. bm8 23:01 EKG done, by ED staff, reviewed by Michael LEBRON. tm6 09/09 00:31 Troponin High Sensitivity Sent. rc3 00:55 Patient has correct armband on for positive identification. Bed in low position. Call tm6 light in reach. Side rails up X2. Provided Education on: use of call breen. Client placed on continuous cardiac and pulse oximetry monitoring. NIBP monitoring applied. laboratory associate on. Pulse ox on. NIBP on. Door closed. Noise minimized. Warm blanket given. 00:55 O2 via room air. tm6 01:09 Greg Allen, YANETH is Primary Nurse. tm6 01:26 No provider procedures requiring assistance completed. Patient did not have IV access ha1 during this emergency room visit. Administered Medications: 09/08 23:06 Drug: Meclizine PO 25 mg PO once Route: PO; lg3 09/09 00:30 Follow up: Response: No adverse reaction; Marked relief of symptoms 1 09/08 23:06 Drug: Acetaminophen PO 1000 mg PO once Route: PO; 3 09/09 00:30 Follow up: Response: No adverse reaction; Marked relief of symptoms 1 Medication: 00:55 VIS not applicable for this client. tm6 Outcome: 01:13 Discharge ordered by . cp 01:26 Discharged to home via wheelchair, with family, [facility] :26 Condition: stable 01:26 Discharge instructions given to patient, family, Instructed on discharge instructions, follow up and referral plans. Demonstrated understanding of instructions, follow-up care, :27 Patient left the ED. 1 Signatures: Michael Nguyen PA PA cp Able, Lacie, RN RN lg3 Aydee Ulrich, RN RN ha1 Greg Allen RN RN tm6 Renea Gallardo ra3 Autumn Chambers 3 Rene Baca, RN RN bm8 Corrections: (The following items were deleted from the chart) :09/08 23:01 EKG done, by ED staff, reviewed by Russell Rodriguez MD tm6 tm6
[2023-09-10 07:34] VITALS: BP 126/80; TEMP 98.6; O2SAT 96
--- NOTE | 2023-09-10 12:42 | EKG ---
Test Date: 2023-09-09 Test Time: 22:43:07 Bid Analyst: BEN MEASUREMENT RESULTS: Intervals: Rate: 67 CA: 190 QRSD: 92 QT: 424 QTc: 448 [place]: P: 40 CA: 190 QRS: -9 T: 141 INTERPRETIVE STATEMENTS: Normal sinus rhythm Left ventricular hypertrophy with repolarization abnormality Abnormal ECG Compared to ECG 09/08/2023 16:13:20 Left ventricular hypertrophy now present Early repolarization now present Sinus bradycardia no longer present First degree AV block no longer present Myocardial infarct finding no longer present ST (T wave) deviation no longer present Possible ischemia no longer present Electronically Signed On 09-10-23 12:41:23 CDT by Josse Olson
== END 2023-09-10 01:27 | disposition home or self-care (01) ==
LOC: ER 22:17
DX: R07.89 Other chest pain (principal)
CPT/HCPCS: 36415; 84484; 93005; J8597

== ENCOUNTER 2023-09-11 18:22 | Emergency (ER) | payer SELFPAY ==
--- NOTE | 2023-09-11 19:12 | RAD REPORT ---
EXAM DESCRIPTION: RAD - Chest Single View - 09/11/2023 6:58 pm CLINICAL HISTORY: CHEST PAIN COMPARISON: Chest Single View dated 09/06/2023; Chest Single View dated 09/04/2023; Chest Single View dated 09/01/2023; Chest Single View dated 08/29/2023 FINDINGS: Lines: None. Lungs: No evidence of edema or pneumonia. Pleural: No significant pleural effusions or pneumothorax. Cardiac: The heart size is within normal limits. Mediastinum: Within normal limits. Bones: No acute fractures. Other: None IMPRESSION: No acute cardiopulmonary disease.
[2023-09-11 19:30] LABS: Absolute Basophils 0.1 K/uL (0-0.5); Absolute Eosinophils 0.1 K/uL (0-0.5); Absolute Lymphocytes (CBC) 1.6 K/uL (0.7-4.9); Absolute Monocytes 0.5 K/uL (0.1-1.3); Absolute Neutrophil 3.4 K/uL (1.8-8.0); Basophils % 1.2 % (0-1.3); Eosinophils % 1.2 % (0-4.4); Hematocrit 33.2 % (36.0-45.0); Hemoglobin 11.3 g/dL (12.0-15.0); Lymphocytes % 27.9 % (15.3-44.8); MCH 33.4 pg (27.0-35.0); MCHC 34.2 g/dL (32.0-36.0); MCV 97.9 fL (80-100); Monocytes % 9.6 % (3.3-12.3); Neutrophils % 60.1 % (41.7-73.7); Nucleated Red Blood Cells % 0.1 % (0-0); Platelets 212 thou/uL (152-406); RBC Red Blood Cell Count 3.39 M/uL (3.86-4.86); Red Cell Distribution Width 15.1 % (12.1-15.2)
[2023-09-11 19:34] LABS: PT Prothrombin Time 10.7 SECONDS (9.4-12.5); PTT, Activated Partial Thromb 34.8 SECONDS (24.3-36.9); Protime INR 0.97
--- NOTE | 2023-09-11 19:53 | RAD REPORT ---
EXAM DESCRIPTION: CTAngio Aorta For Dissection - 09/11/2023 7:34 pm CLINICAL HISTORY: chest pain COMPARISON: Chest Abd Pelvis Wo Con dated 08/21/2023 TECHNIQUE: CTA of the chest, abdomen, and pelvis was performed with IV contrast. 3D maximum intensit y pixel (MIP) reconstructions were created All CT scans are performed using dose optimization technique as appropriate and may include automated exposure control or mA/KV adjustment according to patient size. FINDINGS: Thorax: Chest Wall: No abnormal mass Lungs: Bronchial wall thickening . No evidence of edema. No suspicious pulmonary nodules. Pleura: No effusions or pneumothorax. Kristine/Mediastinum: No lymphadenopathy. Aorta/Pulmonary Arteries: Borderline aneurysmal dilatation of the ascending thoracic aorta measuring 3.9 cm. Heart: Normal size. A few scattered coronary artery calcifications are noted. Abdomen/Pelvis: Liver: No acute abnormality or suspicious lesions. Biliary: Cholecystectomy. Similar mild extrahepatic biliary duct dilatation. This could be secondary to the postcholecystectomy state. Stomach: No significant focal abnormality. Duodenum: No significant focal abnormality. Pancreas: No significant abnormality. Spleen: No significant abnormality. Adrenal: No suspicious lesions. Kidney/ureter: No hydronephrosis. No renal calculi. Right renal scarring. Retroperitoneum: No retroperitoneal adenopathy. Vascular: No aneurysm. Common origin of the SMA and celiac trunk. Eccentric noncalcified thrombus is present but no hemodynamically significant stenosis. Bowel: No significant focal abnormality. Normal appendix. Peritoneum: No ascites or free air. Bladder: Grossly unremarkable. Reproductive: No adnexal masses. Bones: No acute fracture. Subacute left-sided rib fractures. Other: n/a IMPRESSION: No aortic dissection or pulmonary embolus identified. Borderline aneurysmal dilatation o f the ascending thoracic aorta measuring 3.9 cm which is unchanged. No acute findings identified. Sim ilar incidental findings as noted above.
[2023-09-11 19:56] LABS: Anion Gap 6.1 mEq/L (5.0-15.0); Potassium 4.1 mEq/L (3.5-5.1)
--- NOTE | 2023-09-11 20:03 | EDPHYS ---
Physician Documentation [facility] Name: Geetha Khan Age: 48 yrs Sex: Female : 1975 Arrival Date: 09/11/2023 Time: 18:22 Bed 19 Private MD: ED Physician Gene Medrano HPI: 09/10 18:54 This 48 yrs old Female presents to ER via EMS with complaints of Chest Pain. rn 18:54 The patient or guardian reports chest pain that is located primarily in the substernal rn area. Onset: 1 hour(s) ago. The pain radiates to the right arm. Associated signs and symptoms: Pertinent negatives: abdominal pain, diaphoresis, shortness of breath, syncope, vomiting. The chest pain is described as sharp. Duration: The patient or guardian reports a single episode. Modifying factors: The symptoms are alleviated by nothing. the symptoms are aggravated by nothing. Severity of pain: At its worst the pain was mild in the emergency department the pain is unchanged. The patient has experienced similar episodes in the past. Patient reports sharp stabbing pain that began 1 hour prior to arrival, was at rest, radiates to right shoulder. No fever or chills. No weakness. No trauma.. 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 - Infectious Disease History:: Denies. - Social history:: Smoking status: Patient reports the use of cigarette tobacco products, smokes one-half pack cigarettes per day. - Family history:: not pertinent. - Hospitalizations: : No recent hospitalization is reported. ROS: 18:54 Constitutional: Negative for fever, chills, and weight loss, Eyes: Negative for injury, rn pain, redness, and discharge, Neck: Negative for injury, pain, and swelling, Cardiovascular: Positive for chest pain Respiratory: Negative for shortness of breath, cough, wheezing, and pleuritic chest pain, Abdomen/GI: Negative for abdominal pain, nausea, vomiting, diarrhea, and constipation, MS/Extremity: Negative for injury and deformity, Skin: Negative for injury, rash, and discoloration, Neuro: Negative for headache, weakness, numbness, tingling, and seizure, Exam: 18:54 Constitutional: This is a well developed, well nourished patient who is awake, alert, rn and in no acute distress. Cardiovascular: Regular rate and rhythm. No pulse deficits. Respiratory: No increased work of breathing, no retractions or nasal flaring. Abdomen/GI: Soft, non-tender Neuro: Awake and alert, GCS 15 19:01 ECG was reviewed by the Attending Physician. rn Vital Signs: 18:29 BP 99 / 69; Pulse 66; Resp 18; Temp 98; Pulse Ox 96% ; db 19:57 BP 114 / 78; Pulse 72; Pulse Ox 97% on R/A; Pain 5/10; tm6 20:20 BP 114 / 86; Pulse 64; Resp 16; Temp 98(TE); Pulse Ox 97% on R/A; Pain 4/10; tm6 19:57 Pain Scale: Adult tm6 20:20 Pain Scale: Adult tm6 MDM: 18:28 Patient medically screened. rn 19:58 Differential diagnosis: acute myocardial infarction, acute pericarditis, rn gastroesophageal reflux disease (GERD), pleurisy, pneumothorax, pulmonary embolus, thoracic aortic disection. Data reviewed: vital signs, nurses notes, lab test result(s), EKG, radiologic studies, CT scan, and as a result, I will discharge patient. Counseling: I had a detailed discussion with the patient and/or guardian regarding the historical points, exam findings, and any diagnostic results supporting the discharge/admit diagnosis, lab results, radiology results, the need for outpatient follow up, to return to the emergency department if symptoms worsen or persist or if there are any questions or concerns that arise at home. Special discussion: Based on the patient's history, exam, and Dx evaluation, there is no indication for emergent intervention or inpatient Tx. It is understood by the patient/guardian that if the Sx's persist or worsen they need to return immediately for re-evaluation. I discussed with the patient/guardian in detail that at this point there is no indication for admission to the hospital. It is understood, however, that if the symptoms persist or worsen the patient needs to return immediately for re-evaluation. ED course: No acute findings and workup. CT aorta negative. Blood pressure has improved on its own. I have personally reviewed all of the results, including but not limited to blood tests and imaging deemed necessary to safely discharge this patient at this time. All results given to and printed out for patient. I personally went over all the results with the patient and answered all questions. Patient will follow-up with PCP and or specialist as discussed. Return precautions given and understood.. 20:01 HEART Score: History: Slightly Suspicious (0), ECG: Non specific repolarization rn disturbance / LBTB / PM (1), Age: > 45 and < 65 years (1), Risk Factors: 1 or 2 risk factors (1), Troponin: < or = 1 x Normal Limit (0), Total Score = 3. 09/10 18:31 Order name: Troponin High Sensitivity; Complete Time: 20:02 09/10 18:37 Order name: CBC with Diff; Complete Time: 19:49 09/10 18:37 Order name: Basic Metabolic Panel; Complete Time: 19:58 09/10 18:37 Order name: Protime (+inr); Complete Time: 19:49 09/10 18:37 Order name: Ptt, Activated; Complete Time: 19:49 09/10 18:31 Order name: XRAY Chest (1 view); Complete Time: 19:17 09/10 18:37 Order name: CT Aorta for Dissection; Complete Time: 19:58 09/10 18:31 Order name: EKG; Complete Time: 18:31 09/10 18:31 Order name: EKG - Nurse/Tech; Complete Time: 19:00 rn Administered Medications: No medications were administered Disposition Summary: 09/11/23 20:03 Discharge Ordered Notes: Location: Home rn Problem: new rn Symptoms: have improved rn Condition: Stable rn Diagnosis - Chest pain, unspecified rn Followup: rn - With: Private Physician - When: As needed - Reason: Recheck today's complaints, Re-evaluation by your physician Discharge Instructions: - Discharge Summary Sheet rn - Nonspecific Chest Pain, Adult rn Forms: - Medication Reconciliation Form rn - Antibiotic last pattern grader - Prescription Opioid Use rn - Patient Portal Instructions rn - Leadership Thank You Letter rn Signatures: Dispatcher Med[employer] EDMS Medrano, Gene, MD MD rn Martel, Yeimy, RN RN db Corrections: (The following items were deleted from the chart) 18:30 18:30 Social history: Smoking status: Patient reports the use of cigarette tobacco db products, smokes one pack cigarettes per day. db 18:31 18:31 Troponin High Sensitivity+C.LAB.BRZ ordered. EDMS EDMS 18:31 18:31 Chest Single View+RAD.RAD.BRZ ordered. EDMS EDMS 18:38 18:38 CBC+H.LAB.BRZ ordered. EDMS EDMS 18:38 18:38 BASIC METABOLIC PANEL+C.LAB.BRZ ordered. EDMS EDMS 18:38 18:38 PROTIME (+INR)+COAG.LAB.BRZ ordered. EDMS EDMS 18:38 18:38 PTT, ACTIVATED+COAG.LAB.BRZ ordered. EDMS EDMS 18:38 18:38 Angio Aorta For Dissection+CT.RAD.BRZ ordered. EDMS EDMS 18:59 18:39 CBC+H.LAB.BRZ ordered. EDMS EDMS 18:59 18:39 BASIC METABOLIC PANEL+C.LAB.BRZ ordered. EDMS EDMS 18:59 18:39 PROTIME (+INR)+COAG.LAB.BRZ ordered. EDMS EDMS 18:59 18:39 PTT, ACTIVATED+COAG.LAB.BRZ ordered. EDMS EDMS
--- NOTE | 2023-09-11 20:03 | ER ---
Nurse's Notes [facility] Name: Geetha Khan Age: 48 yrs Sex: Female : 1975 Arrival Date: 09/11/2023 Time: 18:22 Bed 19 Private MD: Diagnosis: Chest pain, unspecified Presentation: 09/10 18:29 Chief complaint: Patient states: CHEST PAIN X 1 HOUR. CALLED EMS OUT TO HOME 3 HOURS db AGO FOR VITALS CHECK. Coronavirus screen: Client denies travel out of the [place] in the last 14 days. At this time, the client does not indicate any symptoms associated with coronavirus-19. Ebola Screen: Patient negative for fever greater than or equal to 101.5 degrees Fahrenheit, and additional compatible Ebola Virus Disease symptoms Patient denies exposure to infectious person. Patient denies travel to an Ebola-affected area in the 21 days before illness onset. No symptoms or risks identified at this time. Initial Sepsis Screen: Does the patient meet any 2 criteria? No. Patient's initial sepsis screen is negative. Does the patient have a suspected source of infection? No. Patient's initial sepsis screen is negative. Risk Assessment: Do you want to hurt yourself or someone else? Patient reports no desire to harm self or others. Onset of symptoms was September 11, 2023. 18:29 Method Of Arrival: EMS: [facility] db 18:29 Acuity: CORRINA 2 db Triage Assessment: 18:30 General: Appears in no apparent distress. comfortable, Behavior is calm, cooperative. db Pain: Complains of pain in chest. Neuro: Level of Consciousness is awake, alert, obeys commands, Oriented to person, place, time, situation. Cardiovascular: Reports chest pain, Capillary refill < 3 seconds Patient's skin is warm and dry. Respiratory: Airway is patent Respiratory effort is even, unlabored, Respiratory pattern is regular, symmetrical. GI: No deficits noted. No signs and/or symptoms were reported involving the gastrointestinal system. : No deficits noted. No signs and/or symptoms were reported regarding the genitourinary system. Derm: No deficits noted. No signs and/or symptoms reported regarding the dermatologic system. Musculoskeletal: No deficits noted. No signs and/or symptoms reported regarding the musculoskeletal system. 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 - Infectious Disease History:: Denies. - Social history:: Smoking status: Patient reports the use of cigarette tobacco products, smokes one-half pack cigarettes per day. - Family history:: not pertinent. - Hospitalizations: : No recent hospitalization is reported. Screenin:50 [facility] ED Fall Risk Assessment (Adult) History of falling in the last 3 months, db including since admission No falls in past 3 months (0 pts) Confusion or Disorientation No (0 pts) Intoxicated or Sedated No (0 pts) Impaired Gait No (0 pts) Mobility Assist Device Used No (0 pt) Altered Elimination No (0 pt) Score/Fall Risk Level 0 - 2 = Low Risk Oriented to surroundings, Maintained a safe environment. Abuse screen: Denies threats or abuse. Denies injuries from another. Nutritional screening: No deficits noted. Tuberculosis screening: No symptoms or risk factors identified. Assessment: 18:50 Reassessment: Patient appears in no apparent distress at this time. Patient and/or db family updated on plan of care and expected duration. Pain level reassessed. Patient is alert, oriented x 3, equal unlabored respirations, skin warm/dry/pink. 19:29 Reassessment: Patient appears in no apparent distress at this time. Patient and/or tm6 family updated on plan of care and expected duration. Pain level reassessed. Patient is alert, oriented x 3, equal unlabored respirations, skin warm/dry/pink. 20:20 Reassessment: Patient appears in no apparent distress at this time. tm6 Vital Signs: 18:29 BP 99 / 69; Pulse 66; Resp 18; Temp 98; Pulse Ox 96% ; db 19:57 BP 114 / 78; Pulse 72; Pulse Ox 97% on R/A; Pain 5/10; tm6 20:20 BP 114 / 86; Pulse 64; Resp 16; Temp 98(TE); Pulse Ox 97% on R/A; Pain 4/10; tm6 19:57 Pain Scale: Adult tm6 20:20 Pain Scale: Adult tm6 ED Course: 18:27 Patient arrived in ED. db 18:28 Gene Medrano MD is Attending Physician. rn 18:29 Triage completed. db 18:30 Arm band placed on Patient placed in an exam room. db 18:32 Yeimy Martel, RN is Primary Nurse. db 18:50 Patient has correct armband on for positive identification. Side rails up X2. Provided db Education on: LABS. Client placed on continuous cardiac and pulse oximetry monitoring. NIBP monitoring applied. monitor tech on. Pulse ox on. NIBP on. Warm blanket given. Pillow given. 18:50 Initial lab(s) drawn, by me, sent to lab. EKG done, by ED staff, reviewed by Gene Medrano MD. Missed attempt(s): 20 gauge in right antecubital area. Bleeding controlled, band aid applied, catheter tip intact. 18:59 XRAY Chest (1 view) In Process Unspecified. EDMS 19:02 Report given to YANETH ANN. db 19:24 Inserted saline lock: 22 gauge in right wrist, using aseptic technique. Blood collected.oe 19:25 Protime (+inr) Sent. oe 19:25 Ptt, Activated Sent. oe 19:25 Basic Metabolic Panel Sent. oe 19:25 CBC with Diff Sent. oe 19:25 Troponin High Sensitivity Sent. oe 19:32 Greg Allen, RN is Primary Nurse. tm6 19:34 CT Aorta for Dissection In Process Unspecified. EDMS 20:20 No provider procedures requiring assistance completed. IV discontinued, intact, tm6 bleeding controlled, No redness/swelling at site. Pressure dressing applied. O2 via room air. Administered Medications: No medications were administered Medication: 18:50 VIS not applicable for this client. db Outcome: 20:03 Discharge ordered by . rn 20:20 Discharged to home via wheelchair, tm6 20:20 Condition: stable 20:20 Discharge instructions given to patient, Instructed on discharge instructions, follow up and referral plans. Demonstrated understanding of instructions, follow-up care, 20:21 Patient left the ED. tm6 Signatures: Dispatcher [employer] EDMS Gene Medrano MD MD rn [place]spin[place], [place] oe Yeimy Martel RN RN Greg Samaniego RN RN tm6 Corrections: (The following items were deleted from the chart) 18:30 18:30 Social history: Smoking status: Patient reports the use of cigarette tobacco db products, smokes one pack cigarettes per day. db
[2023-09-11 21:27] VITALS: BP 114/86; TEMP 98; O2SAT 97
--- NOTE | 2023-09-12 14:07 | EKG ---
Test Date: 2023-09-11 Test Time: 18:51:37 Dag Sprayer: MAYANK MEASUREMENT RESULTS: Intervals: Rate: 67 [place]: 202 QRSD: 88 QT: 440 QTc: 464 [place]: P: 57 [place]: 202 QRS: 20 T: 150 INTERPRETIVE STATEMENTS: Sinus rhythm with occasional premature ventricular complexes Left ventricular hypertrophy with repolarization abnormality Abnormal ECG Compared to ECG 09/09/2023 22:43:07 Ventricular premature complex(es) now present Electronically Signed On 09-12-23 14:06:27 CDT by Josse Olson
== END 2023-09-11 20:21 | disposition home or self-care (01) ==
LOC: ER 18:22
DX: R07.9 Chest pain, unspecified (principal); J44.9 Chronic obstructive pulmonary disease, unspecified; I10 Essential (primary) hypertension; I25.2 Old myocardial infarction; F17.210 Nicotine dependence, cigarettes, uncomplicated; Z88.6 Allergy status to analgesic agent; Z91.013 Allergy to seafood; Z91.018 Allergy to other foods
CPT/HCPCS: 36415; 71045; 71275; 74175; 80048; 84484; 85025; 85610; 85730; 93005; 99285; Q9967

== ENCOUNTER 2023-09-12 19:55 | Emergency (ER) | payer SELFPAY ==
[2023-09-12 20:57] LABS: Absolute Eosinophils 0.1 K/uL (0-0.5); Absolute Monocytes 0.5 K/uL (0.1-1.3); Absolute Neutrophil 3.3 K/uL (1.8-8.0); Basophils % 0.8 % (0-1.3); Eosinophils % 1.8 % (0-4.4); Hematocrit 32.9 % (36.0-45.0); Hemoglobin 11.1 g/dL (12.0-15.0); Lymphocytes % 20.4 % (15.3-44.8); MCH 33.2 pg (27.0-35.0); MCHC 33.9 g/dL (32.0-36.0); MCV 98.2 fL (80-100); MPV 7.2 fL (7.6-11.3); Monocytes % 10.2 % (3.3-12.3); Neutrophils % 66.8 % (41.7-73.7); Platelets 201 thou/uL (152-406); RBC Red Blood Cell Count 3.35 M/uL (3.86-4.86); Red Cell Distribution Width 15.2 % (12.1-15.2)
--- NOTE | 2023-09-12 21:01 | RAD REPORT ---
EXAM DESCRIPTION: [place] Single View09/12/2023 8:28 pm CLINICAL HISTORY: Chest pain COMPARISON: September 11, 2023 FINDINGS: The lungs appear clear of acute infiltrate. The heart is mildly enlarged Subacute left rib fractures IMPRESSION: No acute abnormalities displayed
[2023-09-12 21:15] LABS: Anion Gap 5.9 mEq/L (5.0-15.0); Potassium 3.9 mEq/L (3.5-5.1); Troponin High Sensitivity 27.9 pg/mL (<58.9)
--- NOTE | 2023-09-12 21:18 | ER ---
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 Coronavirus screen: Client denies travel out of the [place] in the last 14 days. At this time, the client does not indicate any symptoms associated with coronavirus-19. Ebola Screen: Patient negative for fever greater than or equal to 101.5 degrees Fahrenheit, and additional compatible Ebola Virus Disease symptoms Patient denies exposure to infectious person. Patient denies travel to an Ebola-affected area in the 21 days before illness onset. No symptoms or risks identified at this time. Initial Sepsis Screen: Does the patient meet any 2 criteria? No. Patient's initial sepsis screen is negative. Does the patient have a suspected source of infection? No. Patient's initial sepsis screen is negative. 20:13 Method Of Arrival: EMS: [facility] vc1 20:13 Risk Assessment: Do you want to hurt yourself or someone else? Patient reports no vc1 desire to harm self or others. Onset of symptoms was September 12, 2023 at 19:00. 20:13 Acuity: CORRINA 4 vc1 20:13 Care prior to arrival: Medication(s) given: Normal saline infusion, 300CC NS IV vc1 initiated. 20 GA, in the right wrist. 20:21 Chief complaint: EMS states: Pt arrived to ED with complaints of CP. VSS. Coronavirus kd3 screen: unknown. Ebola Screen: No symptoms or risks identified at this time. Initial Sepsis Screen: Does the patient meet any 2 criteria? No. Patient's initial sepsis screen is negative. Does the patient have a suspected source of infection? No. Patient's initial sepsis screen is negative. Risk Assessment: Do you want to hurt yourself or someone else? Patient reports no desire to harm self or others. Onset of symptoms was September 12, 2023. 20:21 Method Of Arrival: EMS: [facility] kd3 Triage Assessment: 20:22 General: Appears in no apparent distress. Behavior is calm, cooperative. Pain: kd3 Complains of pain in chest. 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 - Irregular menses, Not jw7 Historical: - Allergies: 20:22 Aspirin; kd3 20:22 CRANBERRY; kd3 20:22 FISH PRODUCT DERIVATIVES; kd3 20:22 GRAPEFRUIT; kd3 20:22 mushrooms; kd3 20:23 Aspirin; vc1 20:23 CRANBERRY; vc1 20:23 FISH PRODUCT DERIVATIVES; vc1 20:23 GRAPEFRUIT; vc1 20:23 mushrooms; vc1 - PMHx: 20:22 Asthma; Asthma; Cerebrovascular accident; Cerebrovascular accident; COPD; COPD; kd3 Hypertension; Hypertension; Left arm paralysis and left leg weakness from previous CVA; Left arm paralysis and left leg weakness from previous CVA; Myocardial infarction; Myocardial infarction; Seizures; Thyroid problem; 20:23 Asthma; Cerebrovascular accident; COPD; Hypertension; Left arm paralysis and left leg vc1 weakness from previous CVA; Myocardial infarction; Seizures; Thyroid problem; - PSHx: 20:23 None; vc1 - Immunization history:: Adult Immunizations up to date, Client reports having NOT received the Covid vaccine. Flu vaccine is up to date. - Infectious Disease History:: Denies. Denies. - Social history:: Smoking status: Patient reports the use of cigarette tobacco products, Smoking status: Patient denies any tobacco usage or history of. Screenin:24 [facility] ED Fall Risk Assessment (Adult) History of falling in the last 3 months, vc1 including since admission Yes- fall prone (multiple falls) (3 pts) Confusion or Disorientation No (0 pts) Intoxicated or Sedated No (0 pts) Impaired Gait Yes (1 pt) Mobility Assist Device Used Yes (1 pt) Altered Elimination Yes (1 pt) Score/Fall Risk Level 3 or more points = High Risk Oriented to surroundings, Maintained a safe environment, Educated pt \T\ family on fall prevention, incl call for assistance when getting out of bed. Abuse screen: Denies threats or abuse. Nutritional screening: No deficits noted. Tuberculosis screening: No symptoms or risk factors identified. Assessment: 20:46 General: Appears in no apparent distress. Behavior is calm, cooperative. Neuro: Level kd3 of Consciousness is awake, alert, obeys commands, Oriented to person, place, time, situation. Cardiovascular: Patient's skin is warm and dry. Rhythm is regular. Respiratory: Airway is patent Trachea midline Respiratory effort is even, unlabored, Respiratory pattern is regular, symmetrical. 21:55 Reassessment: Patient appears in no apparent distress at this time. No changes from jw7 previously documented assessment. Patient and/or family updated on plan of care and expected duration. Pain level reassessed. Patient is alert, oriented x 3, equal unlabored respirations, skin warm/dry/pink. Patient denies pain at this time. Vital Signs: 20:13 BP 104 / 85; Pulse 65; Resp 13; Temp 98.6; Pulse Ox 100% ; Weight 65.77 kg; Height 5 vc1 ft. 2 in. ; Pain 9/10; 20:21 BP 104 / 85; Pulse 71; Resp 16; Temp 98.1(O); Pulse Ox 99% on R/A; kd3 20:46 BP 116 / 81; Pulse 67; Resp 19; Pulse Ox 99% on R/A; kd3 21:55 BP 106 / 90; Pulse 65; Resp 17 S; Temp 98.8(O); Pulse Ox 100% on R/A; jw7 20:13 Body Mass Index 26.52 (65.77 kg, 157.48 cm) vc1 20:13 Pain Scale: Adult vc1 ED Course: 20:04 Patient arrived in ED. kmf 20:07 Kathy Kerns FNP-C is [facility]. kb 20:07 Michael Grimm MD is Attending Physician. kb 20:12 Lisbet Dan, YANETH is Primary Nurse. kd3 20:22 Triage completed. kd3 20:22 Arm band placed on right wrist. EKG completed in triage. Results shown to MD. kd3 20:25 Bed in low position. Call light in reach. lithoplate maker on. Pulse ox on. NIBP on. vc1 20:25 Maintain EMS IV. Dressing intact. Good blood return noted. Site clean \T\ dry. Gauge \T\ kd 3 site: 20 gauge right forearm . 20:30 XRAY Chest (1 view) In Process Unspecified. EDMS 20:30 Provided Education on: Use of Call Light. jw7 20:35 Basic Metabolic Panel Sent. kd3 20:35 CBC with Diff Sent. kd3 20:35 Troponin HS Sent. kd3 20:35 Initial lab(s) drawn, by tn, sent to lab. EKG done, by ED staff, reviewed by Kathy ENCINAS. 21:56 No provider procedures requiring assistance completed. IV discontinued, intact, jwElda bleeding controlled, No redness/swelling at site. Pressure dressing applied. Administered Medications: No medications were administered Medication: 20:25 VIS not applicable for this client. vc1 Outcome: 21:17 Discharge ordered by MD. lozano 21:56 Discharged to home via wheelchair, with family, hemal 21:56 Condition: stable 21:56 Discharge instructions given to patient, Instructed on discharge instructions, follow up and referral plans. Demonstrated understanding of instructions, follow-up care, 21:57 Patient left the ED. jwElda Signatures: Dispatcher [employer] EDMS Kathy Kerns, HUANG PLATT-Lisbet Lozano RN RN kd3 Syeda Bruce RN RN vc1 Lauren Nguyen RN RN jw7 Phuong Day [facility] Corrections: (The following items were deleted from the chart) 20:25 20:21 Acuity: CORRINA 3 kd3 kd3
--- NOTE | 2023-09-12 21:18 | EDPHYS ---
Physician Documentation [facility] Name: Geetha Khan Age: 48 yrs Sex: Female : 1975 Arrival Date: 09/12/2023 Time: 19:55 Bed 5 Private MD: ED Physician Michael Grimm HPI: 09/11 21:31 This 48 yrs old Female presents to ER via EMS with complaints of Chest Pain. kb 21:31 Pt is a 48 year old female who presents for chest pain to [place] of chest that radiates kb to the right shoulder. States this is the same pain she has daily. Denies cough, congestion, fever, palpitations. . 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 - Irregular menses, Not jw7 Historical: - Allergies: 20:22 Aspirin; kd3 20:22 CRANBERRY; kd3 20:22 FISH PRODUCT DERIVATIVES; kd3 20:22 GRAPEFRUIT; kd3 20:22 mushrooms; kd3 20:23 Aspirin; vc1 20:23 CRANBERRY; vc1 20:23 FISH PRODUCT DERIVATIVES; vc1 20:23 GRAPEFRUIT; vc1 20:23 mushrooms; vc1 - PMHx: 20:22 Asthma; Asthma; Cerebrovascular accident; Cerebrovascular accident; COPD; COPD; kd3 Hypertension; Hypertension; Left arm paralysis and left leg weakness from previous CVA; Left arm paralysis and left leg weakness from previous CVA; Myocardial infarction; Myocardial infarction; Seizures; Thyroid problem; 20:23 Asthma; Cerebrovascular accident; COPD; Hypertension; Left arm paralysis and left leg vc1 weakness from previous CVA; Myocardial infarction; Seizures; Thyroid problem; - PSHx: 20:23 None; vc1 - Immunization history:: Adult Immunizations up to date, Client reports having NOT received the Covid vaccine. Flu vaccine is up to date. - Infectious Disease History:: Denies. Denies. - Social history:: Smoking status: Patient reports the use of cigarette tobacco products, Smoking status: Patient denies any tobacco usage or history of. ROS: 21:31 Constitutional: As per HPI kb Exam: 21:17 Constitutional: This is a well developed, well nourished patient who is awake, alert, kb and in no acute distress. Head/Face: Normocephalic, atraumatic. ENT: Moist Mucous membranes Cardiovascular: Regular rate Respiratory: Respirations even and unlabored. No increased work of breathing. Talking in full sentences Abdomen/GI: Soft, non-tender. No distention Skin: Warm, dry with normal turgor. Normal color. MS/ Extremity: Pulses equal, no cyanosis. Neurovascular intact. Full, normal range of motion. Neuro: Awake and alert, GCS 15, oriented to person, place, time, and situation. Moves all extremities. Normal gait. 21:17 ECG was reviewed by the Attending Physician. Vital Signs: 20:13 BP 104 / 85; Pulse 65; Resp 13; Temp 98.6; Pulse Ox 100% ; Weight 65.77 kg; Height 5 vc1 ft. 2 in. ; Pain 9/10; 20:21 BP 104 / 85; Pulse 71; Resp 16; Temp 98.1(O); Pulse Ox 99% on R/A; kd3 20:46 BP 116 / 81; Pulse 67; Resp 19; Pulse Ox 99% on R/A; kd3 21:55 BP 106 / 90; Pulse 65; Resp 17 S; Temp 98.8(O); Pulse Ox 100% on R/A; jw7 20:13 Body Mass Index 26.52 (65.77 kg, 157.48 cm) vc1 20:13 Pain Scale: Adult vc1 MDM: 20:07 Patient medically screened. kb 21:31 Data reviewed: vital signs, nurses notes. kb 21:31 Differential diagnosis: abnormal ekg, acute mi, copd exacerbation. Historians other kb than the Patient: EMS: [facility]. Counseling: I had a detailed discussion with the patient and/or guardian regarding the historical points, exam findings, and any diagnostic results supporting the discharge/admit diagnosis, lab results, radiology results, the need for outpatient follow up, a family practitioner, to return to the emergency department if symptoms worsen or persist or if there are any questions or concerns that arise at home. 09/11 20:07 Order name: Basic Metabolic Panel; Complete Time: 21:16 kb 09/11 20:07 Order name: CBC with Diff; Complete Time: 21:12 kb 09/11 20:07 Order name: Troponin HS; Complete Time: 21:16 kb 09/11 20:07 Order name: XRAY Chest (1 view); Complete Time: 21:12 kb 09/11 20:07 Order name: Cardiac monitoring; Complete Time: 20:21 kb 09/11 20:07 Order name: EKG - Nurse/Tech; Complete Time: 20:21 kb 09/11 20:07 Order name: IV Saline Lock; Complete Time: 20:21 kb 09/11 20:07 Order name: Labs collected and sent; Complete Time: 20:35 kb 09/11 20:07 Order name: O2 Per Protocol; Complete Time: 20:21 kb 09/11 20:07 Order name: O2 Sat Monitoring; Complete Time: 20:21 kb EC:17 Rate is 67 beats/min. Rhythm is regular. QRS [place] is Normal. [place] interval is normal at kb 196 msec. QRS interval is normal at 88 msec. QT interval is normal at 454 msec. Administered Medications: No medications were administered Disposition Summary: 09/12/23 21:17 Discharge Ordered Notes: Location: Home kb Condition: Stable kb Diagnosis - Chest pain, unspecified kb Followup: kb - With: Emergency Department - When: As needed - Reason: Worsening of condition Followup: kb - With: Private Physician - When: 2 - 3 days - Reason: Recheck today's complaints, Continuance of care, Re-evaluation by your physician Discharge Instructions: - Discharge Summary Sheet kb - Nonspecific Chest Pain, Adult, [id number] kb Forms: - Medication Reconciliation Form kb - Antibiotic Education kb - Prescription Opioid Use kb - Patient Portal Instructions kb - Leadership Thank You Letter kb Addendum: 09/21/2023 08:02 Co-signature as Attending Physician, Michael Grimm MD I agree with the assessment and c call plan of care. Signatures: Dispatcher [employer] Kathy Hines, LC-Kelly TOBACCO SPRAYER-Michael May MD MD cha Doucette, Kyli, RN RN kd3 Syeda Bruce RN RN vc1
[2023-09-12 22:35] VITALS: BP 106/90; TEMP 98.8; O2SAT 100
--- NOTE | 2023-09-14 14:08 | EKG ---
Test Date: 2023-09-12 Test Time: 20:17:57 Abap Developer: MARGARITO MEASUREMENT RESULTS: Intervals: Rate: 67 OH: 196 QRSD: 88 QT: 430 QTc: 454 [place]: P: 53 OH: 196 QRS: 7 T: 143 INTERPRETIVE STATEMENTS: Normal sinus rhythm Possible Left atrial enlargement Left ventricular hypertrophy with repolarization abnormality Abnormal ECG Compared to ECG 09/11/2023 18:51:37 Ventricular premature complex(es) no longer present Electronically Signed On 09-14-23 14:06:29 CDT by Alan Garay
== END 2023-09-12 21:57 | disposition home or self-care (01) ==
LOC: ER 19:55
DX: R07.9 Chest pain, unspecified (principal); I10 Essential (primary) hypertension; J44.9 Chronic obstructive pulmonary disease, unspecified; J45.909 Unspecified asthma, uncomplicated; I25.2 Old myocardial infarction; F17.210 Nicotine dependence, cigarettes, uncomplicated; Z86.73 Personal history of transient ischemic attack (TIA), and cerebral infarction without residual deficits; Z88.8 Allergy status to other drugs, medicaments and biological substances; Z91.018 Allergy to other foods
CPT/HCPCS: 36415; 71045; 80048; 84484; 85025; 93005; 99284

== ENCOUNTER 2023-09-13 18:59 | Emergency (ER) | payer SELFPAY ==
[2023-09-13] MEDS ORDERED: CLOPIDOGREL 75 MG TABLET ONE (19:25)
[2023-09-13] MEDS ORDERED: LORAZEPAM 1 MG TABLET ONE (19:41)
--- NOTE | 2023-09-13 20:50 | ER ---
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 Pt states that her pain is a 10/10 does not radiate and describes it as aching. Coronavirus screen: Client denies travel out of the [place] in the last 14 days. At this time, the client does not indicate any symptoms associated with coronavirus-19. Ebola Screen: Patient denies travel to an Ebola-affected area in the 21 days before illness onset. No symptoms or risks identified at this time. Initial Sepsis Screen: Does the patient meet any 2 criteria? No. Patient's initial sepsis screen is negative. Does the patient have a suspected source of infection? No. Patient's initial sepsis screen is negative. Risk Assessment: Do you want to hurt yourself or someone else? Patient reports no desire to harm self or others. Onset of symptoms was September 13, 2023. 19:04 Method Of Arrival: EMS: [facility] cm10 19:04 Acuity: CORRINA 2 cm10 Triage Assessment: 19:09 General: Appears in no apparent distress. comfortable, Behavior is calm, cooperative. cm10 Pain: Complains of pain in chest Pain does not radiate. Pain currently is 10 out of 10 on a pain scale. Quality of pain is described as aching. Neuro: No deficits noted. Level of Consciousness is awake, alert, obeys commands, Oriented to person, place, time, situation, Appropriate for age. Cardiovascular: Reports chest pain, Patient's skin is warm and dry. Chest pain is described as Pain is 10 out of 10 on a pain scale. quality is Aching is located in substernal area began 1 hour prior to arrival episodes are continuous. 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 - Infectious Disease History:: Denies. - Social history:: Smoking status: Patient reports the use of cigarette tobacco products, denies chronic smoking, but will smoke occasionally. Screenin:20 [facility] ED Fall Risk Assessment (Adult) History of falling in the last 3 months, rg5 including since admission No falls in past 3 months (0 pts) Confusion or Disorientation No (0 pts) Intoxicated or Sedated No (0 pts) Impaired Gait Yes (1 pt) Mobility Assist Device Used Yes (1 pt) Altered Elimination No (0 pt) Score/Fall Risk Level 0 - 2 = Low Risk Oriented to surroundings, Maintained a safe environment, Hourly rounding (assess needs \T\ fall precautionary measures) done. 20:48 Abuse screen: Denies threats or abuse. Nutritional screening: No deficits noted. bm8 Tuberculosis screening: No symptoms or risk factors identified. Assessment: 19:18 General: Appears in no apparent distress. Behavior is calm, cooperative, appropriate rg5 for age. Pain: Complains of pain in chest Quality of pain is described as aching, Pain began 1 hour ago. Neuro: Oriented to person, place, time. Cardiovascular: Chest pain is described as mild, quality is began 1 hour prior to arrival. Respiratory: Airway is patent. GI: No deficits noted. : No signs and/or symptoms were reported regarding the genitourinary system. Derm: Skin is intact, Skin is dry, Skin is pink, warm \T\ dry. Skin temperature is warm. 20:48 Reassessment: Patient appears in no apparent distress at this time. Patient and/or bm8 family updated on plan of care and expected duration. Pain level reassessed. Patient is alert, oriented x 3, equal unlabored respirations, skin warm/dry/pink. Patient denies pain at this time. Patient states feeling better. Patient states symptoms have improved. Pain: Denies pain. Cardiovascular: No deficits noted. Denies chest pain, lightheadedness, shortness of breath, Capillary refill < 3 seconds Patient's skin is warm and dry. Rhythm is sinus rhythm. Vital Signs: 19:04 BP 120 / 79; Pulse 58; Resp 18; Temp 98(O); Pulse Ox 97% on R/A; Weight 65.77 kg; cm10 Height 5 ft. 2 in. ; Pain 10/10; 19:18 BP 119 / 83; Pulse 58; Resp 18; Temp 98; Pulse Ox 97% on R/A; Pain 7/10; rg5 20:46 BP 100 / 85; Pulse 62; Resp 17; Temp 98; Pulse Ox 97% on R/A; rg5 19:04 Body Mass Index 26.52 (65.77 kg, 157.48 cm) cm10 19:04 Pain Scale: Adult cm10 19:18 Pain Scale: Adult rg5 ED Course: 19:04 Patient arrived in ED. cm10 19:06 Michael Nguyen PA is PHCP. cp 19:06 Kye De Anda MD is Attending Physician. cp 19:06 Triage completed. cm10 19:10 Arm band placed on Patient placed in an exam room, on a stretcher, on media monitor, cm10 on pulse oximetry. 19:17 Hakan Crowley, RN is Primary Nurse. rg5 19:20 Patient has correct armband on for positive identification. Bed in low position. Call rg5 light in reach. Side rails up X 1. Client placed on continuous cardiac and pulse oximetry monitoring. NIBP monitoring applied. ekg monitor tech on. Pulse ox on. NIBP on. 19:20 No provider procedures requiring assistance completed. rg5 20:48 Provided Education on: post er care. Door closed. Noise minimized. bm8 20:48 Patient did not have IV access during this emergency room visit. O2 via no need for O2. bm8 Administered Medications: 19:41 Drug: Clopidogrel PO 75 mg PO once Route: PO; rg5 20:50 Follow up: Response: No adverse reaction bm8 19:49 Drug: LORazepam PO 1 mg PO once Route: PO; bm8 20:50 Follow up: Response: No adverse reaction bm8 Medication: 19:20 VIS not applicable for this client. rg5 Outcome: 20:48 Discharged to home via wheelchair, bm8 20:48 Condition: stable 20:48 Instructed on discharge instructions, follow up and referral plans. safety practices, Demonstrated understanding of instructions, follow-up care, medications, 20:50 Discharge ordered by . chelly 20:55 Patient left the ED. bm8 Signatures: Michael Nguyen PA PA cp Martinez, Clarissa, RN RN cm10 Rene Baca RN RN bm8 Hakan Crowley, RN RN rg5
--- NOTE | 2023-09-13 20:50 | EDPHYS ---
Physician Documentation [facility] Name: Geetha Khan Age: 48 yrs Sex: Female : 1975 Arrival Date: 09/13/2023 Time: 18:59 Bed 5 Private MD: ED Physician Kye De Anda HPI: 09/12 19:15 This 48 yrs old Female presents to ER via EMS with complaints of Chest Pain. 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 - Infectious Disease History:: Denies. - Social history:: Smoking status: Patient reports the use of cigarette tobacco products, denies chronic smoking, but will smoke occasionally. ROS: 19:20 Constitutional: Negative for body aches, chills, fever, poor PO intake, cp 19:20 Eyes: Negative for injury, pain, redness, and discharge, cp 19:20 ENT: Negative for drainage from ear(s), ear pain, sore throat, difficulty swallowing, difficulty handling secretions, 19:20 Cardiovascular: Positive for chest pain, Negative for palpitations, 19:20 Respiratory: Negative for cough, shortness of breath, wheezing, 19:20 Abdomen/GI: Negative for abdominal pain, vomiting, diarrhea, constipation, 19:20 Neuro: Negative for altered mental status, dizziness, headache, syncope, near syncope, weakness, 19:20 All other systems are negative, Exam: 19:17 ECG was reviewed by the Attending Physician. cp 19:22 Constitutional: The patient appears in no acute distress, alert, awake, cp non-diaphoretic, non-toxic, well developed, well nourished, 19:22 Head/Face: Normocephalic, atraumatic. cp 19:22 Eyes: Periorbital structures: appear normal, Conjunctiva: normal, no exudate, no injection, Sclera: no appreciated abnormality, Lids and lashes: appear normal, bilaterally, 19:22 ENT: External ear(s): are unremarkable, Nose: is normal, Mouth: Lips: moist, Oral mucosa: moist, Posterior pharynx: Airway: no evidence of obstruction, patent, 19:22 Neck: ROM/movement: is normal, is supple, without pain, no range of motions limitations, 19:22 Chest/axilla: Inspection: normal, 19:22 Cardiovascular: Rate: bradycardic, Rhythm: regular, Edema: is not appreciated, JVD: is not appreciated, 19:22 Respiratory: the patient does not display signs of respiratory distress, Respirations: normal, no use of accessory muscles, no retractions, labored breathing, is not present, Breath sounds: are clear throughout, no decreased breath sounds, no stridor, no wheezing, 19:22 Abdomen/GI: Exam negative for discomfort, distension, guarding, Inspection: abdomen appears normal, 19:22 Neuro: Orientation: to person, place \T\ time. Mentation: is normal, Motor: no acute changes, Sensation: no acute changes, Vital Signs: 19:04 BP 120 / 79; Pulse 58; Resp 18; Temp 98(O); Pulse Ox 97% on R/A; Weight 65.77 kg; cm10 Height 5 ft. 2 in. ; Pain 10/10; 19:18 BP 119 / 83; Pulse 58; Resp 18; Temp 98; Pulse Ox 97% on R/A; Pain 7/10; rg5 20:46 BP 100 / 85; Pulse 62; Resp 17; Temp 98; Pulse Ox 97% on R/A; rg5 19:04 Body Mass Index 26.52 (65.77 kg, 157.48 cm) cm10 19:04 Pain Scale: Adult cm10 19:18 Pain Scale: Adult rg5 MDM: 19:06 Patient medically screened. 19:30 Differential diagnosis: anxiety, acute NM. 20:50 Data reviewed: vital signs, nurses notes, lab test result(s), EKG. 20:50 I considered the following discharge prescriptions or medication management in the emergency department Medications were administered in the Emergency Department. See MAR. Independent interpretation of the following test(s) in the Emergency Department EKG: See my EKG interpretation above. Care significantly affected by the following chronic conditions: Chronic Obstructive Pulmonary Disease. 09/12 19:10 Order name: Troponin High Sensitivity; Complete Time: 20:47 cp 09/12 20:47 Interpretation: Reviewed. cp 09/12 19:10 Order name: EKG; Complete Time: 19:10 cp 09/12 19:10 Order name: EKG - Nurse/Tech; Complete Time: 19:17 cp EC:17 Rate is 57 beats/min. Rhythm is regular. MN interval is prolonged at 220 msec. QRS cp interval is normal. QT interval is normal. T waves are Inverted in leads I, aVL, V5, V6. Interpreted by me. Reviewed by me. Administered Medications: 19:41 Drug: Clopidogrel PO 75 mg PO once Route: PO; rg5 20:50 Follow up: Response: No adverse reaction bm8 19:49 Drug: LORazepam PO 1 mg PO once Route: PO; bm8 20:50 Follow up: Response: No adverse reaction bm8 Disposition: 09/13 19:00 Co-signature as Attending Physician, Kye De Anda MD I reviewed the patient's care rt provided by the Advanced Practice Provider and agree with the diagnosis and treatment plan. Disposition Summary: 09/13/23 20:50 Discharge Ordered Notes: Location: Home cp Problem: new cp Symptoms: have improved cp Condition: Stable cp Diagnosis - Chest pain, unspecified cp Followup: cp - With: Private Physician - When: As needed - Reason: Worsening of condition Discharge Instructions: - Discharge Summary Sheet cp - Nonspecific Chest Pain, Adult cp Forms: - Medication Reconciliation Form cp - Antibiotic Education cp - Prescription Opioid Use cp - Patient Portal Instructions cp - Leadership Thank You Letter cp Signatures: Dispatcher [employer] EDIN Michael Nguyen PA PA cp [place], Ryan, MD MD rt Kelsey Khan, RN RN cm10 Rene Baca, RN RN bm8 Hakan Crowley, RN RN rg5
[2023-09-13 22:31] VITALS: BP 100/85; TEMP 98; O2SAT 97
--- NOTE | 2023-09-16 14:21 | EKG ---
Test Date: 2023-09-13 Test Time: 19:12:03 Certified Green Building Engineer: HEATHER MEASUREMENT RESULTS: Intervals: Rate: 57 KS: 220 QRSD: 90 QT: 468 QTc: 455 [place]: P: 52 KS: 220 QRS: 16 T: 146 INTERPRETIVE STATEMENTS: Sinus bradycardia with 1st degree AV block Left ventricular hypertrophy with repolarization abnormality Abnormal ECG Compared to ECG 09/12/2023 20:17:57 First degree AV block now present Sinus rhythm no longer present Electronically Signed On 09-16-23 14:16:13 CDT by Josse Olson
== END 2023-09-13 20:55 | disposition home or self-care (01) ==
LOC: ER 18:59
DX: R07.9 Chest pain, unspecified (principal)
CPT/HCPCS: 36415; 84484; 93005; 99285

== ENCOUNTER 2023-09-16 17:55 | Emergency (ER) | payer SELFPAY ==
--- NOTE | 2023-09-16 18:35 | ER ---
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 Coronavirus screen: Client denies travel out of the [place] in the last 14 days. At this time, the client does not indicate any symptoms associated with coronavirus-19. Ebola Screen: Patient denies travel to an Ebola-affected area in the 21 days before illness onset. Initial Sepsis Screen: Does the patient meet any 2 criteria? No. Patient's initial sepsis screen is negative. Does the patient have a suspected source of infection? No. Patient's initial sepsis screen is negative. Risk Assessment: Do you want to hurt yourself or someone else? Patient reports no desire to harm self or others. Onset of symptoms was September 16, 2023. 18:22 Method Of Arrival: EMS ll1 18:22 Acuity: CORRINA 3 ll1 Triage Assessment: 18:23 General: Appears in no apparent distress. Behavior is cooperative, appropriate for age, ll1 anxious. Pain: Complains of pain in head Quality of pain is described as aching. Neuro: Reports headache anxiety. 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 - Infectious Disease History:: Denies. - Social history:: Smoking status: Patient reports the use of cigarette tobacco products, smokes .25 packs per day. Screenin:27 [facility] ED Fall Risk Assessment (Adult) History of falling in the last 3 months, cm10 including since admission No falls in past 3 months (0 pts) Confusion or Disorientation No (0 pts) Intoxicated or Sedated No (0 pts) Impaired Gait Yes (1 pt) Mobility Assist Device Used Yes (1 pt) Altered Elimination No (0 pt) Score/Fall Risk Level 0 - 2 = Low Risk Oriented to surroundings, Maintained a safe environment, Hourly rounding (assess needs \T\ fall precautionary measures) done. Abuse screen: Denies threats or abuse. Denies injuries from another. Nutritional screening: No deficits noted. Tuberculosis screening: No symptoms or risk factors identified. Assessment: 19:26 General: Appears in no apparent distress. comfortable, Behavior is calm, cooperative. cm10 Neuro: No deficits noted. Level of Consciousness is awake, alert, obeys commands, Oriented to person, place, time, situation, Appropriate for age. Respiratory: No deficits noted. Airway is patent Respiratory effort is even, unlabored, Respiratory pattern is regular, symmetrical. Vital Signs: 18:22 BP 112 / 79; Pulse 84; Resp 17; Temp 97.1; Pulse Ox 100% ; Weight 65.77 kg; Height 5 ll1 ft. 4 in. ; Pain 10/10; 18:22 Body Mass Index 24.89 (65.77 kg, 162.56 cm) ll1 18:22 Pain Scale: Adult ll1 ED Course: 17:56 Patient arrived in ED. im 18:03 Kalli Bradshaw PA-C is PHCP. sb4 18:03 Kishor Hoyos DO is Attending Physician. sb4 18:06 Arm band placed on. aa5 18:23 Triage completed. ll1 19:27 Patient has correct armband on for positive identification. Provided Education on: cm10 Follow-up instructions. 19:27 No provider procedures requiring assistance completed. Patient did not have IV access cm10 during this emergency room visit. Administered Medications: 19:14 Drug: LORazepam PO 1 mg PO once Route: PO; cm10 19:28 Follow up: Response: No adverse reaction; Medication administered at discharge. cm10 Medication: 19:27 VIS not applicable for this client. cm10 Outcome: 18:35 Discharge ordered by . sb4 19:27 Discharged to home via wheelchair, Pt waiting for family in lobby. cm10 19:27 Condition: good 19:27 Discharge instructions given to patient, Instructed on discharge instructions, follow up and referral plans. Demonstrated understanding of instructions, follow-up care, 19:28 Patient left the ED. cm10 Signatures: Rosemarie Lang RN RN aa5 Ruth East RN RN ll1 Kalli Bradshaw PAHermes [place]4 Verna Jhaveri Clarissa, RN RN cm10 Corrections: (The following items were deleted from the chart) 18:22 18:06 Social history: Smoking status: Patient denies any tobacco usage or history of. [email or web address] aa5
--- NOTE | 2023-09-16 18:35 | EDPHYS ---
Physician Documentation [facility] Name: Geetha Khan Age: 48 yrs Sex: Female : 1975 Arrival Date: 09/16/2023 Time: 17:55 Bed IW2 Private MD: ED Physician Kishor Hoyos HPI: 09/15 18:27 This 48 yrs old Female presents to ER via EMS with complaints of Anxiety. sb4 18:27 Patient states that her sister lives with her and helps take care of her but she has sb4 not been taking her medications as prescribed and has been hallucinating. She doesn't know what to do and is very anxious about it. She has no other complaints at this time, is just wanting some help. 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 - Infectious Disease History:: Denies. - Social history:: Smoking status: Patient reports the use of cigarette tobacco products, smokes .25 packs per day. ROS: 18:27 Constitutional: Negative for fever, chills, and weight loss, sb4 18:27 Psych: Positive for anxiety, 18:27 All other systems are negative, Exam: 18:27 Head/Face: Normocephalic, atraumatic. Eyes: Extra-ocular motions intact. Periorbital sb4 areas with no swelling, redness, or edema. ENT: Mucous membranes moist. Skin: Warm, dry with normal turgor. Normal color with no rashes, no lesions, and no evidence of cellulitis. 18:27 Constitutional: The patient appears alert, awake, anxious, 18:27 Psych: Behavior/mood is cooperative, anxious, Affect is calm, Oriented to person, place, time, Patient has no thoughts/intents to harm self or others. Judgement / Insight is normal. Memory is normal. Delusions/hallucinations are not present. Vital Signs: 18:22 BP 112 / 79; Pulse 84; Resp 17; Temp 97.1; Pulse Ox 100% ; Weight 65.77 kg; Height 5 ll1 ft. 4 in. ; Pain 10/10; 18:22 Body Mass Index 24.89 (65.77 kg, 162.56 cm) ll1 18:22 Pain Scale: Adult ll1 MDM: 18:04 Patient medically screened. sb4 18:29 Data reviewed: vital signs, nurses notes, EMS record, and as a result, I will discharge sb4 patient. Counseling: I had a detailed discussion with the patient and/or guardian regarding the historical points, exam findings, and any diagnostic results supporting the discharge/admit diagnosis, to return to the emergency department if symptoms worsen or persist or if there are any questions or concerns that arise at home. Administered Medications: 19:14 Drug: LORazepam PO 1 mg PO once Route: PO; cm10 19:28 Follow up: Response: No adverse reaction; Medication administered at discharge. cm10 Disposition: 21:15 I was immediately available on-site in the Emergency Department for consultation in the ms3 care of the patient. Disposition Summary: 09/16/23 18:35 Discharge Ordered Notes: Location: Home sb4 Problem: new sb4 Symptoms: have improved sb4 Condition: Stable sb4 Diagnosis - Anxiety disorder, unspecified sb4 Followup: sb4 - With: Emergency Department - When: As needed - Reason: Trouble breathing, Worsening of condition Discharge Instructions: - Discharge Summary Sheet sb4 - Managing Anxiety, Adult sb4 Forms: - Patient Portal Instructions sb4 - Leadership Thank You Letter sb4 Signatures: Rosemarie Lang RN RN aa5 Ruth East RN RN ll1 Kishor Hoyos DO DO ms3 Kalli Bradshaw PA-C PAHermes sb4 Kelsey Khan RN RN cm10 Corrections: (The following items were deleted from the chart) 18:22 18:06 Social history: Smoking status: Patient denies any tobacco usage or history of. ll1 aa5
[2023-09-16] MEDS ORDERED: LORAZEPAM 1 MG TABLET ONE (19:14)
[2023-09-16 20:22] VITALS: BP 112/79; TEMP 97.1; O2SAT 100
== END 2023-09-16 19:28 | disposition home or self-care (01) ==
LOC: ER 17:55
DX: F41.9 Anxiety disorder, unspecified (principal)
CPT/HCPCS: 99283

== ENCOUNTER 2023-09-16 23:42 | Emergency (ER) | payer SELFPAY ==
[2023-09-17] MEDS ORDERED: HYDROCODONE/APAP 10/325 TAB ONE (00:15)
[2023-09-17] MEDS ORDERED: PROMETHAZINE 25 MG TABLET ONE (00:15)
[2023-09-17] MEDS ORDERED: DIAZEPAM 5 MG TABLET ONE (00:16)
--- NOTE | 2023-09-17 00:35 | EDPHYS ---
Physician Documentation [facility] Name: Geetha Khan Age: 48 yrs Sex: Female : 1975 Arrival Date: 09/16/2023 Time: 23:42 Bed 18 Private MD: ED Physician Uriel Cannon HPI: 09/16 00:02 This 48 yrs old Female presents to ER via EMS with complaints of Chest Pain. 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 - Infectious Disease History:: Denies. - Social history:: Smoking status: Patient reports the use of cigarette tobacco products, smokes one pack cigarettes per day. - Family history:: not pertinent. ROS: 09/16 05:19 Constitutional: Negative for fever, chills, and weight loss, positive anxiety and sp4 positive chest discomfort All other systems are negative, Exam: 00:31 ECG was reviewed by the Attending Physician. EKG at 0022 normal sinus rhythm at the sp4 rate of 72, left ventricular hypertrophy, PVCs, 05:19 Constitutional: This is a well developed, well nourished patient who is awake, alert, sp4 positive for longstanding left-sided hemiparesis from prior CVA. Head/Face: Normocephalic, atraumatic. Eyes: Pupils equal round and reactive to light, extra-ocular motions intact. Lids and lashes normal. Conjunctiva and sclera are not injected. Cornea within normal limits. Periorbital areas with no swelling, redness, or edema. ENT: Nares patent. No nasal discharge, no septal abnormalities noted. Tympanic membranes are normal and external auditory canals are clear. Oropharynx with no redness, swelling, or masses, exudates, or evidence of obstruction, uvula midline. Mucous membranes moist. Neck: Trachea midline, no thyromegaly or masses palpated, and no cervical lymphadenopathy. Supple, full range of motion without nuchal rigidity, or vertebral point tenderness. Chest/axilla: Normal chest wall appearance and motion. Nontender with no deformity. No lesions are appreciated. Cardiovascular: Regular rate and rhythm with a normal S1 and S2. No gallops, murmurs, or rubs. Normal PMI, no JVD. No pulse deficits. Respiratory: Lungs have equal breath sounds bilaterally, clear to auscultation and percussion. No rales, rhonchi or wheezes noted. No increased work of breathing, no retractions or nasal flaring. Abdomen/GI: Soft, with normal bowel sounds. No distension or tympany. No guarding or rebound. No evidence of tenderness throughout. Back: No spinal tenderness. No costovertebral tenderness. Skin: Warm, dry with normal turgor. Normal color with no rashes, no lesions, and no evidence of cellulitis. MS/ Extremity: Pulses equal, no cyanosis. Neurovascular intact. Full, normal range of motion. Neuro: Awake and alert, GCS 15, oriented to person, place, time, Positive chronic left hemiparesis without new deficits Psych: Awake, alert, with orientation to person, place and time. Behavior, mood, and affect are within normal limits Vital Signs: 09/15 23:55 BP 114 / 87; Pulse 77; Resp 17 S; Temp 98.1; Pulse Ox 98% on R/A; Weight 67.13 kg; ha1 Height 5 ft. 2 in. ; 09/16 00:43 BP 108 / 95; Pulse 82; Resp 17; Temp 98.1(TE); Pulse Ox 99% on R/A; Pain 0/10; tm6 09/15 23:55 Body Mass Index 27.07 (67.13 kg, 157.48 cm) ha1 09/16 00:43 Pain Scale: Adult tm6 Mariluz Coma Score: 05:19 Eye Response: spontaneous(4). Motor Response: obeys commands(6). Verbal Response: sp4 oriented(5). Total: 15. MDM: 09/15 23:57 Patient medically screened. sp4 09/16 05:19 Differential diagnosis: acute pericarditis, anxiety, chest wall pain, esophagitis, sp4 gastritis. Data reviewed: vital signs, nurses notes, EMS record, old medical records, EKG. ED course: Patient is stable for discharge home . 07 23:57 Order name: EKG; Complete Time: 23:57 sp4 09/15 23:57 Order name: EKG - Nurse/Tech; Complete Time: 00:24 sp4 EC:31 Rate is 72 beats/min. Rhythm is regular, Normal Sinus Rhythm with Occasional PVCs. QRS sp4 [place] is Normal. NV interval is normal. QRS interval is normal. QT interval is normal. No Q waves. T waves are Normal. No ST changes noted. Clinical impression: No evidence of ischemia. Interpreted by me. Administered Medications: 00:19 Drug: Suring PO 10 mg-325 mg 1 tabs PO once Route: PO; ha1 00:19 Drug: Diazepam PO 5 mg PO once Route: PO; ha1 00:19 Drug: Promethazine PO 25 mg PO once Route: PO; ha1 00:19 Not Given (Patient Refused): aspirinchewable tablet 324 mg PO once; 81 mg tablets x 4 ha1 Disposition: 05:24 Chart complete. sp4 Disposition Summary: 09/17/23 00:34 Discharge Ordered Notes: Location: Home sp4 Problem: new sp4 Symptoms: have improved sp4 Condition: Stable sp4 Diagnosis - Other specified anxiety disorders sp4 - Acute anxiety attack sp4 Followup: sp4 - With: Josse Olson MD - When: 7 - 10 days - Reason: Recheck today's complaints Discharge Instructions: - Discharge Summary Sheet sp4 - Managing Anxiety, Adult sp4 Forms: - Patient Portal Instructions sp4 Prescriptions: - Amitriptyline 50 mg Oral tablet - take 1 tablet ORAL route At bedtime for 1 month; 30 tablet; Refills: 0, Product sp4 Selection Permitted - Valium 5 mg Oral tablet - take 1 tablet ORAL route once daily As needed PRN anxiety; 20 tablet; Refills: sp4 0, Product Selection Permitted Signatures: Aydee Ulrich RN RN ha1 Uriel Cannon MD MD sp4
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
[2023-09-17 01:34] VITALS: BP 108/95; TEMP 98.1; O2SAT 99
--- NOTE | 2023-09-17 14:32 | EKG ---
Test Date: 2023-09-17 Test Time: 00:22:57 Real Estate Associate Attorney: SOLO MEASUREMENT RESULTS: Intervals: Rate: 72 [place]: 198 QRSD: 92 QT: 414 QTc: 453 [place]: P: 35 [place]: 198 QRS: -23 T: 128 INTERPRETIVE STATEMENTS: Sinus rhythm with occasional premature ventricular complexes Possible Left atrial enlargement Left ventricular hypertrophy with repolarization abnormality Abnormal ECG Compared to ECG 09/13/2023 19:12:03 Ventricular premature complex(es) now present Sinus bradycardia no longer present First degree AV block no longer present Electronically Signed On 09-17-23 14:31:37 CDT by Josse Olson
== END 2023-09-17 01:17 | disposition home or self-care (01) ==
LOC: ER 23:42
DX: F41.0 Panic disorder [episodic paroxysmal anxiety] (principal); F41.8 Other specified anxiety disorders
CPT/HCPCS: 93005; Q0169

== ENCOUNTER 2023-09-23 23:09 | Emergency (ER) | payer SELFPAY ==
[2023-09-24] MEDS ORDERED: LORAZEPAM 1 MG TABLET ONE (00:28)
--- NOTE | 2023-09-24 00:40 | ER ---
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 States it is similar to multiple previous episodes and is associated with her anxiety. States she has anxiety medications at home but did not take it because she did not have anything to drink. Coronavirus screen: Vaccine status: Patient reports being unvaccinated. Client denies travel out of the [place] in the last 14 days. Ebola Screen: Patient negative for fever greater than or equal to 101.5 degrees Fahrenheit, and additional compatible Ebola Virus Disease symptoms Patient denies exposure to infectious person. Patient denies travel to an Ebola-affected area in the 21 days before illness onset. Initial Sepsis Screen: Does the patient meet any 2 criteria? No. Patient's initial sepsis screen is negative. Does the patient have a suspected source of infection? No. Patient's initial sepsis screen is negative. Risk Assessment: Do you want to hurt yourself or someone else? Patient reports no desire to harm self or others. Onset of symptoms was September 23, 2023 at 22:30. 23:44 Method Of Arrival: Wheelchair kb3 23:44 Acuity: CORRINA 3 kb3 Triage Assessment: 23:47 General: Appears in no apparent distress. Behavior is calm, cooperative. Pain: kb3 Complains of pain in mid-sternal area Pain does not radiate. Pain currently is 10 out of 10 on a pain scale. Quality of pain is described as Crawling. Cardiovascular: Reports chest pain. 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 - Infectious Disease History:: Denies. - Social history:: Smoking status: Patient reports the use of cigarette tobacco products, smokes one-half pack cigarettes per day. Vital Signs: 23:44 BP 97 / 64; Pulse 70; Resp 18; Temp 97.3; Pulse Ox 98% ; Weight 65.77 kg; Height 5 ft. kb3 2 in. ; Pain 10/10; 23:44 Body Mass Index 26.52 (65.77 kg, 157.48 cm) kb3 23:44 Pain Scale: Adult kb3 ED Course: 23:13 Patient arrived in ED. rg4 23:16 Kalli Bradshaw [facility]-C [facility]. sb4 23:16 Hoa Eddy MD is Attending Physician. sb4 23:47 Triage completed. kb3 23:47 Arm band placed on. kb3 Administered Medications: 07 00:32 Drug: LORazepam PO 1 mg PO once Route: PO; kb3 00:56 Follow up: Response: No adverse reaction; Pain is decreased; Anxiety decreased jp4 Outcome: 00:39 Discharge ordered by MD. sb4 00:53 Discharged to home with family, jp4 00:53 Condition: stable 00:53 Discharge instructions given to patient, family, Instructed on discharge instructions, follow up and referral plans. Demonstrated understanding of instructions, Prescriptions given X NONE 00:55 Patient left the ED. jp4 Signatures: Erica Talley rg4 Siria Dempsey, RN RN kb3 Kalli Bradshaw PA-C PA-C sb4 Filiberto Leach RN RN jp4
--- NOTE | 2023-09-24 00:40 | EDPHYS ---
Physician Documentation [facility] Name: Geetha Khan Age: 48 yrs Sex: Female : 1975 Arrival Date: 09/23/2023 Time: 23:09 Bed IW1 Private MD: ED Physician Hoa Eddy HPI: 09/23 00:55 This 48 yrs old Female presents to ER via Wheelchair with complaints of Chest Pain. sb4 00:55 chest pain secondary to anxiety. was unable to take anxiety meds. states pain is sb4 similar to prior episodes. 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 - Infectious Disease History:: Denies. - Social history:: Smoking status: Patient reports the use of cigarette tobacco products, smokes one-half pack cigarettes per day. ROS: 09/23 00:55 Constitutional: Negative for fever, chills, and weight loss, sb4 Cardiovascular: Positive for chest pain, Psych: Positive for anxiety, All other systems are negative, Exam: 00:55 Constitutional: This is a well developed, well nourished patient who is awake, alert, sb4 and in no acute distress. Head/Face: Normocephalic, atraumatic. Eyes: Extra-ocular motions intact. Periorbital areas with no swelling, redness, or edema. ENT: Mucous membranes moist. Cardiovascular: Regular rate and rhythm with a normal S1 and S2. Skin: Warm, dry with normal turgor. Normal color with no rashes, no lesions, and no evidence of cellulitis. Vital Signs: 09/22 23:44 BP 97 / 64; Pulse 70; Resp 18; Temp 97.3; Pulse Ox 98% ; Weight 65.77 kg; Height 5 ft. kb3 2 in. ; Pain 10/10; 23:44 Body Mass Index 26.52 (65.77 kg, 157.48 cm) kb3 23:44 Pain Scale: Adult kb3 MDM: 23:17 Patient medically screened. sb4 09/23 00:55 Data reviewed: vital signs, nurses notes, EMS record, EKG, and as a result, I will sb4 discharge patient. Counseling: I had a detailed discussion with the patient and/or guardian regarding the historical points, exam findings, and any diagnostic results supporting the discharge/admit diagnosis, to return to the emergency department if symptoms worsen or persist or if there are any questions or concerns that arise at home. 09/22 23:17 Order name: EKG; Complete Time: 23:17 sb4 09/22 23:17 Order name: EKG - Nurse/Tech; Complete Time: 00:05 sb4 EC:04 Rate is 73 beats/min. Rhythm is regular, Normal Sinus Rhythm. NV interval is normal at sb4 192 msec. QRS interval is normal at 98 msec. QT interval is normal at 410 msec. No Q waves. T waves are Normal. No ST changes noted. Clinical impression: Abnormal EKG without significant change. Interpreted by me. Reviewed by me. Administered Medications: 00:32 Drug: LORazepam PO 1 mg PO once Route: PO; kb3 00:56 Follow up: Response: No adverse reaction; Pain is decreased; Anxiety decreased jp4 Disposition Summary: 09/24/23 00:39 Discharge Ordered Notes: Location: Home sb4 Problem: new sb4 Symptoms: have improved sb4 Condition: Stable sb4 Diagnosis - Chest pain, unspecified sb4 - Anxiety disorder, unspecified sb4 Followup: sb4 - With: Emergency Department - When: As needed - Reason: Trouble breathing, Worsening of condition Discharge Instructions: - Discharge Summary Sheet sb4 - Nonspecific Chest Pain, Adult, [id number] sb4 - Managing Anxiety, Adult sb4 Forms: - Patient Portal Instructions sb4 - Leadership Thank You Letter sb4 Signatures: Siria Dempsey, RN RN kb3 Kalli Bradshaw PA-C PA-C sb4 Filiberto Leach RN jp4
[2023-09-24 01:17] VITALS: BP 97/64; TEMP 97.3; O2SAT 98
--- NOTE | 2023-09-25 12:13 | EKG ---
Test Date: 2023-09-24 Test Time: 00:01:06 Perioperative Educator: ALEIDA MEASUREMENT RESULTS: Intervals: Rate: 73 [place]: 192 QRSD: 98 QT: 410 QTc: 451 [place]: P: 56 [place]: 192 QRS: 6 T: 139 INTERPRETIVE STATEMENTS: Sinus rhythm with occasional premature ventricular complexes Left ventricular hypertrophy with repolarization abnormality Cannot rule out Septal infarct, age undetermined Abnormal ECG Compared to ECG 09/17/2023 00:22:57 Myocardial infarct finding now present Electronically Signed On 09-25-23 12:10:58 CDT by Alan Garay
== END 2023-09-24 00:55 | disposition home or self-care (01) ==
LOC: ER 23:09
DX: F41.9 Anxiety disorder, unspecified (principal)
CPT/HCPCS: 93005; 99283

== ENCOUNTER 2023-10-08 01:40 | Emergency (ER) | payer OTHER ==
--- NOTE | 2023-10-08 02:13 | EDPHYS ---
Physician Documentation [facility] Name: Geetha Khan Age: 48 yrs Sex: Female : 1975 Arrival Date: 10/08/2023 Time: 01:40 Bed IW1 Private MD: ED Physician Uriel aCnnon HPI: 10/07 02:05 This 48 yrs old Female presents to ER via Unassigned with complaints of Chest sp4 Pain, Anxiety. 04:07 8-year-old female with past medical history of hemorrhagic CVA presents with acute sp4 onset of anxiety and chest pain. Patient is well-known to me from multiple prior visits for the same complaint. . 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 - Infectious Disease History:: Denies. - Social history:: Smoking status: Patient reports the use of cigarette tobacco products, smokes one-half pack cigarettes per day. - Family history:: not pertinent. ROS: 04:07 Constitutional: Negative for fever, chills, and weight loss, negative for fever, sp4 positive chest pain and anxiety 04:07 All other systems are negative, Exam: 04:07 Constitutional: This is a well developed, well nourished patient who is awake, alert, sp4 and in no acute distress. There is longstanding left-sided paralysis from prior CVA. Head/Face: Normocephalic, atraumatic. Eyes: Pupils equal round and reactive to light, extra-ocular motions intact. Lids and lashes normal. Conjunctiva and sclera are not injected. Cornea within normal limits. Periorbital areas with no swelling, redness, or edema. ENT: Nares patent. No nasal discharge, no septal abnormalities noted. Tympanic membranes are normal and external auditory canals are clear. Oropharynx with no redness, swelling, or masses, exudates, or evidence of obstruction, uvula midline. Mucous membranes moist. Neck: Trachea midline, no thyromegaly or masses palpated, and no cervical lymphadenopathy. Supple, full range of motion without nuchal rigidity, or vertebral point tenderness. Chest/axilla: Normal chest wall appearance and motion. Nontender with no deformity. No lesions are appreciated. Cardiovascular: Regular rate and rhythm with a normal S1 and S2. No gallops, murmurs, or rubs. Normal PMI, no JVD. No pulse deficits. Respiratory: Lungs have equal breath sounds bilaterally, clear to auscultation and percussion. No rales, rhonchi or wheezes noted. No increased work of breathing, no retractions or nasal flaring. Abdomen/GI: Soft, with normal bowel sounds. No distension or tympany. No guarding or rebound. No evidence of tenderness throughout. Back: No spinal tenderness. No costovertebral tenderness. Skin: Warm, dry with normal turgor. Normal color with no rashes, no lesions, and no evidence of cellulitis. MS/ Extremity: Pulses equal, no cyanosis. Neurovascular intact. Full, normal range of motion. Diffuse physical atrophy and muscular deconditioning Neuro: Awake and alert, GCS 15, oriented to person, place, time, and situation. Positive longstanding left-sided hemiparesis secondary to prior CVA, no new neurologic deficits. Psych: Awake, alert, with orientation to person, place and time. Behavior, mood, and affect are within normal limits 04:07 ECG was reviewed by the Attending Physician. EKG at 0207 positive for normal sinus rhythm at a rate of 73 with left ventricular hypertrophy. No acute changes. Vital Signs: 02:24 BP 104 / 59; Pulse 78; Resp 16; Temp 98(O); Pulse Ox 99% on R/A; Weight 63.5 kg (R); jb4 Height 5 ft. 2 in. (R); Pain 10/10; 02:24 Body Mass Index 25.61 (63.50 kg, 157.48 cm) jb4 02:24 Pain Scale: Adult jb4 Mariluz Coma Score: 04:07 Eye Response: spontaneous(4). Motor Response: obeys commands(6). Verbal Response: sp4 oriented(5). Total: 15. MDM: 02:06 Patient medically screened. sp4 04:11 Differential diagnosis: acute pericarditis, anxiety, chest wall pain, Cholelithiasis sp4 costochondritis, esophagitis. Data reviewed: vital signs, nurses notes, EKG. ED course: Patient was given p.o. Valium for anxiety. Otherwise stable for discharge home.. 10/07 02:05 Order name: EKG - Nurse/Tech; Complete Time: 02:24 sp4 EC:07 Rate is 73 beats/min. Rhythm is regular, Normal Sinus Rhythm. QRS [place] is Normal. [place] sp4 interval is normal. QRS interval is normal. QT interval is normal. No Q waves. T waves are Inverted. No ST changes noted. Clinical impression: No evidence of ischemia. Interpreted by me. Reviewed by me. Administered Medications: 02:24 Drug: HYDROcodone-acetaminophen PO 5 mg-325 mg 2 tabs PO once Route: PO; jb4 02:24 Drug: Diazepam PO 5 mg PO once Route: PO; jb4 Disposition: 04:11 Chart complete. sp4 Disposition Summary: 10/08/23 02:13 Discharge Ordered Notes: Location: Home sp4 Problem: new sp4 Symptoms: have improved sp4 Condition: Stable sp4 Diagnosis - Anxiety disorder, unspecified sp4 Followup: sp4 - With: Private Physician - When: 7 - 10 days - Reason: Recheck today's complaints Discharge Instructions: - Discharge Summary Sheet sp4 - Managing Anxiety, Adult sp4 Forms: - Patient Portal Instructions sp4 Signatures: Jaziel Storm, RN RN jb4 Uriel Cannon MD MD sp4
[2023-10-08] MEDS ORDERED: HYDROCODONE/APAP 5/325 MG TAB ONE (02:18)
[2023-10-08] MEDS ORDERED: DIAZEPAM 5 MG TABLET ONE (02:19)
--- NOTE | 2023-10-08 02:27 | ER ---
Nurse's Notes [facility] Name: Geetha Khan Age: 48 yrs Sex: Female : 1975 Arrival Date: 10/08/2023 Time: 01:40 Bed IW1 Private MD: Diagnosis: Anxiety disorder, unspecified Presentation: 10/07 02:24 Chief complaint: Patient states: I got anxious and my chest started hurting in the jb4 middle. Coronavirus screen: At this time, the client does not indicate any symptoms associated with coronavirus-19. Ebola Screen: No symptoms or risks identified at this time. Initial Sepsis Screen: Does the patient meet any 2 criteria? No. Patient's initial sepsis screen is negative. Does the patient have a suspected source of infection? No. Patient's initial sepsis screen is negative. Risk Assessment: Do you want to hurt yourself or someone else? Patient reports no desire to harm self or others. Onset of symptoms was October 08, 2023. Transition of care: patient was not received from another setting of care. 02:24 Method Of Arrival: Wheelchair jb4 02:24 Acuity: CORRINA 2 jb4 Triage Assessment: 02:25 General: Appears in no apparent distress. comfortable, Behavior is calm, cooperative, jb4 appropriate for age. Pain: Complains of pain in mid-sternal area Pain does not radiate. Pain currently is 10 out of 10 on a pain scale. Quality of pain is described as pressure. EENT: No signs and/or symptoms were reported regarding the EENT system. Neuro: Level of Consciousness is awake, alert, obeys commands, Oriented to person, place, time, situation. Cardiovascular: Patient's skin is warm and dry. Respiratory: Airway is patent Respiratory effort is even, unlabored, Respiratory pattern is regular, symmetrical. GI: No signs and/or symptoms were reported involving the gastrointestinal system. : No signs and/or symptoms were reported regarding the genitourinary system. Derm: Skin is intact, Skin is pink, warm \T\ dry. Musculoskeletal: Circulation, motion, and sensation intact. Range of motion: intact in all extremities. 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 - Infectious Disease History:: Denies. - Social history:: Smoking status: Patient reports the use of cigarette tobacco products, smokes one-half pack cigarettes per day. - Family history:: not pertinent. Screenin:26 [facility] ED Fall Risk Assessment (Adult) History of falling in the last 3 months, jb4 including since admission No falls in past 3 months (0 pts) Confusion or Disorientation No (0 pts) Intoxicated or Sedated No (0 pts) Impaired Gait No (0 pts) Mobility Assist Device Used No (0 pt) Altered Elimination No (0 pt) Score/Fall Risk Level 0 - 2 = Low Risk Oriented to surroundings, Maintained a safe environment. Abuse screen: Denies threats or abuse. Nutritional screening: No deficits noted. Tuberculosis screening: No symptoms or risk factors identified. Assessment: 02:26 Reassessment: see triage assessment. jb4 Vital Signs: 02:24 BP 104 / 59; Pulse 78; Resp 16; Temp 98(O); Pulse Ox 99% on R/A; Weight 63.5 kg (R); jb4 Height 5 ft. 2 in. (R); Pain 10/10; 02:24 Body Mass Index 25.61 (63.50 kg, 157.48 cm) jb4 02:24 Pain Scale: Adult jb4 Mariluz Coma Score: 04:07 Eye Response: spontaneous(4). Motor Response: obeys commands(6). Verbal Response: sp4 oriented(5). Total: 15. ED Course: 01:41 Patient arrived in ED. jj6 02:04 Uriel Cannon MD is Attending Physician. sp4 02:20 EKG done, by ED staff, reviewed by Uriel Cannon MD. oe 02:25 Triage completed. jb4 02:25 Arm band placed on right wrist. jb4 02:26 Patient has correct armband on for positive identification. Bed in low position. Call jb4 light in reach. Side rails up X 1. Provided Education on: discharge instructions.. 02:26 No provider procedures requiring assistance completed. Patient did not have IV access jb4 during this emergency room visit. O2 via RA. Administered Medications: 02:24 Drug: HYDROcodone-acetaminophen PO 5 mg-325 mg 2 tabs PO once Route: PO; jb4 02:24 Drug: Diazepam PO 5 mg PO once Route: PO; jb4 Medication: 02: VIS not applicable for this client. jb4 Outcome: 02:13 Discharge ordered by . sp4 02: Discharged to home via wheelchair, with family, jb4 02: Condition: stable 02: Discharge instructions given to patient, Instructed on discharge instructions, follow up and referral plans. Demonstrated understanding of instructions, follow-up care, :27 Patient left the ED. jb4 Signatures: Jaziel Storm RN RN jb4 Yoni Schreiber Jennifer jj6 Uriel Cannon MD MD sp4
--- NOTE | 2023-10-08 13:06 | EKG ---
Test Date: 2023-10-08 Test Time: 02:07:47 Chronic Condition Nurse: SOLO MEASUREMENT RESULTS: Intervals: Rate: 73 DE: 206 QRSD: 90 QT: 422 QTc: 464 [place]: P: 57 DE: 206 QRS: 21 T: 158 INTERPRETIVE STATEMENTS: Normal sinus rhythm Left ventricular hypertrophy with repolarization abnormality Abnormal ECG Compared to ECG 10/05/2023 19:32:07 First degree AV block no longer present Electronically Signed On 10-08-23 13:05:10 CDT by Josse Olson
[2023-10-10 16:15] VITALS: BP 104/59; TEMP 98; O2SAT 99
== END 2023-10-08 02:27 | disposition home or self-care (01) ==
LOC: ER 01:40
DX: F41.9 Anxiety disorder, unspecified (principal); I10 Essential (primary) hypertension; J44.9 Chronic obstructive pulmonary disease, unspecified; I69.954 Hemiplegia and hemiparesis following unspecified cerebrovascular disease affecting left non-dominant side; I25.2 Old myocardial infarction; F17.210 Nicotine dependence, cigarettes, uncomplicated; Z88.8 Allergy status to other drugs, medicaments and biological substances; Z91.013 Allergy to seafood; Z91.018 Allergy to other foods
CPT/HCPCS: 93005; 99284

== ENCOUNTER 2023-10-08 21:26 | Emergency (ER) | payer OTHER ==
[2023-10-08] MEDS ORDERED: DIAZEPAM 5 MG TABLET ONE (22:16)
[2023-10-08] MEDS ORDERED: HYDROCODONE/APAP 5/325 MG TAB ONE (22:31)
--- NOTE | 2023-10-08 22:33 | EDPHYS ---
Physician Documentation [facility] Name: Geetha Khan Age: 48 yrs Sex: Female : 1975 Arrival Date: 10/08/2023 Time: 21:26 Bed DX1 Private MD: ED Physician Uriel Cannon HPI: 10/07 21:31 This 48 yrs old Female presents to ER via Unassigned with complaints of Chest sp4 Pain, Anxiety. 10/08 05:01 48-year-old female well-known to me from multiple prior visits presents with complaint sp4 of chest pain and anxiety. Patient was here for the same problem yesterday.. 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 - Infectious Disease History:: Denies. - Social history:: Smoking status: Patient reports the use of cigarette tobacco products, smokes one-half pack cigarettes per day. - Family history:: not pertinent. ROS: 10/08 05:01 Constitutional: Negative for fever, chills, and weight loss, positive chest pain and sp4 anxiety All other systems are negative, Exam: 05:01 Constitutional: This is a well developed, well nourished patient who is awake, alert, sp4 and in no acute distress. Head/Face: Normocephalic, atraumatic. Eyes: Pupils equal round and reactive to light, extra-ocular motions intact. Lids and lashes normal. Conjunctiva and sclera are not injected. Cornea within normal limits. Periorbital areas with no swelling, redness, or edema. ENT: Nares patent. No nasal discharge, no septal abnormalities noted. Tympanic membranes are normal and external auditory canals are clear. Oropharynx with no redness, swelling, or masses, exudates, or evidence of obstruction, uvula midline. Mucous membranes moist. Neck: Trachea midline, no thyromegaly or masses palpated, and no cervical lymphadenopathy. Supple, full range of motion without nuchal rigidity, or vertebral point tenderness. Chest/axilla: Normal chest wall appearance and motion. Nontender with no deformity. No lesions are appreciated. Cardiovascular: Regular rate and rhythm with a normal S1 and S2. No gallops, murmurs, or rubs. Normal PMI, no JVD. No pulse deficits. Respiratory: Lungs have equal breath sounds bilaterally, clear to auscultation and percussion. No rales, rhonchi or wheezes noted. No increased work of breathing, no retractions or nasal flaring. Abdomen/GI: Soft, with normal bowel sounds. No distension or tympany. No guarding or rebound. No evidence of tenderness throughout. Back: No spinal tenderness. No costovertebral tenderness. Skin: Warm, dry with normal turgor. Normal color with no rashes, no lesions, and no evidence of cellulitis. MS/ Extremity: Pulses equal, no cyanosis. Neurovascular intact. Physical deconditioning and chronic left-sided hemiparesis. Neuro: Awake and alert, GCS 15, oriented to person, place, time, and situation. He has chronic left-sided hemiparesis as well as physical deconditioning, no new neurologic deficits Psych: Awake, alert, with orientation to person, place and time. Behavior, mood, and affect are within normal limits 05:01 ECG was reviewed by the Attending Physician. EKG at 2222 sinus rhythm with a rate of 76, occasional PVCs., Left ventricular hypertrophy, Vital Signs: 10/07 21:34 BP 103 / 70; Pulse 68; Resp 17; Temp 98.1; Pulse Ox 99% on R/A; Weight 72.57 kg; Height me1 5 ft. 2 in. ; Pain 10/10; 22:00 BP 110 / 68; Pulse 65; Resp 16; Temp 98.4(O); Pulse Ox 99% ; me1 21:34 Body Mass Index 29.26 (72.57 kg, 157.48 cm) me1 21:34 Pain Scale: Adult ca1 [place] Coma Score: 10/08 05:01 Eye Response: spontaneous(4). Motor Response: obeys commands(6). Verbal Response: sp4 oriented(5). Total: 15. MDM: 10/07 22:17 Patient medically screened. sp4 22:32 Differential diagnosis: acute pericarditis, costochondritis, esophagitis, gastritis. ED sp4 course: Stable for discharge home. 10/08 05:01 Data reviewed: vital signs, nurses notes, old medical records, EKG. ED course: Patient sp4 stable for discharge home. Symptoms have improved. 10/07 21:31 Order name: EKG; Complete Time: 21:31 sp4 10/07 21:31 Order name: EKG - Nurse/Tech; Complete Time: 22:28 sp4 EC:01 Rate is 76 beats/min. Rhythm is regular, Sinus Rhythm with Occasional PVCs. QRS [place] is sp4 Normal. [place] interval is normal. QRS interval is normal. QT interval is normal. No Q waves. T waves are Normal. No ST changes noted. Clinical impression: No evidence of ischemia. Interpreted by me. Reviewed by me. Administered Medications: 10/07 22:30 Drug: Diazepam PO 5 mg PO once Route: PO; vc1 22:34 Follow up: Response: No adverse reaction; Anxiety decreased me1 22:34 Drug: HYDROcodone-acetaminophen PO 5 mg-325 mg 1 tabs PO once Route: PO; me1 22:37 Follow up: Response: No adverse reaction; Pain is decreased me1 Disposition Summary: 10/08/23 22:33 Discharge Ordered Notes: Location: Home sp4 Problem: new sp4 Symptoms: have improved sp4 Condition: Stable sp4 Diagnosis - Anxiety disorder, unspecified sp4 Followup: sp4 - With: Private Physician - When: 7 - 10 days - Reason: Recheck today's complaints Discharge Instructions: - Discharge Summary Sheet sp4 - Managing Anxiety, Adult sp4 Signatures: Syeda Bruce RN RN vc1 Uriel Cannon MD MD sp4 Nohemy Clark RN RN me1
--- NOTE | 2023-10-08 22:33 | ER ---
Nurse's Notes [facility] Name: Geetha Khan Age: 48 yrs Sex: Female : 1975 Arrival Date: 10/08/2023 Time: 21:26 Bed DX1 Private MD: Diagnosis: Anxiety disorder, unspecified Presentation: 10/07 21:34 Chief complaint: Patient states: c/o midsternal CP that is heavy 12/25, anxiety. me1 Coronavirus screen: Vaccine status: Patient reports being unvaccinated. Ebola Screen: No symptoms or risks identified at this time. Initial Sepsis Screen: Does the patient meet any 2 criteria? No. Patient's initial sepsis screen is negative. Does the patient have a suspected source of infection? No. Patient's initial sepsis screen is negative. Risk Assessment: Do you want to hurt yourself or someone else? Patient reports no desire to harm self or others. Onset of symptoms was October 08, 2023 at 20:30. 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 - Infectious Disease History:: Denies. - Social history:: Smoking status: Patient reports the use of cigarette tobacco products, smokes one-half pack cigarettes per day. - Family history:: not pertinent. Screenin:00 [facility] ED Fall Risk Assessment (Adult) History of falling in the last 3 months, me1 including since admission No falls in past 3 months (0 pts) Confusion or Disorientation No (0 pts) Intoxicated or Sedated No (0 pts) Impaired Gait Yes (1 pt) Mobility Assist Device Used Yes (1 pt) Altered Elimination Yes (1 pt) Score/Fall Risk Level 0 - 2 = Low Risk Maintained a safe environment, Provided non-skid footwear, Hourly rounding (assess needs \T\ fall precautionary measures) done. Abuse screen: Denies threats or abuse. Nutritional screening: No deficits noted. Tuberculosis screening: No symptoms or risk factors identified. Assessment: 22:00 General: Appears uncomfortable, unkempt, well developed, well nourished, Behavior is me1 cooperative, appropriate for age, anxious, Reports c/o CP and anxiety. Pain: Complains of pain in chest Pain does not radiate. Pain currently is 10 out of 10 on a pain scale. Quality of pain is described as heavy, Pain began suddenly, Is continuous. Neuro: Level of Consciousness is awake, alert, obeys commands, Oriented to person, place, time, situation, Appropriate for age. Cardiovascular: Reports chest pain, Patient's skin is warm and dry. Respiratory: Airway is patent Trachea midline Respiratory effort is even, unlabored, Respiratory pattern is regular, symmetrical. GI: No signs and/or symptoms were reported involving the gastrointestinal system. : No signs and/or symptoms were reported regarding the genitourinary system. EENT: No signs and/or symptoms were reported regarding the EENT system. Derm: Skin is intact, is healthy with good turgor, Skin is pink, warm \T\ dry. Musculoskeletal: No signs and/or symptoms reported regarding the musculoskeletal system. Vital Signs: 21:34 BP 103 / 70; Pulse 68; Resp 17; Temp 98.1; Pulse Ox 99% on R/A; Weight 72.57 kg; Height me1 5 ft. 2 in. ; Pain 10/10; 22:00 BP 110 / 68; Pulse 65; Resp 16; Temp 98.4(O); Pulse Ox 99% ; me1 21:34 Body Mass Index 29.26 (72.57 kg, 157.48 cm) me1 21:34 Pain Scale: Adult me1 Mariluz Coma Score: 10/08 05:01 Eye Response: spontaneous(4). Motor Response: obeys commands(6). Verbal Response: sp4 oriented(5). Total: 15. ED Course: 10/07 21:26 Patient arrived in ED. jj6 21:31 Uriel Cannon MD is Attending Physician. sp4 21:37 Triage completed. me1 21:37 Arm band placed on right wrist. Patient placed in waiting room. me1 22:00 Patient has correct armband on for positive identification. Call light in reach. me1 Provided Education on: POC. Verbalized understanding.. Client placed on continuous cardiac and pulse oximetry monitoring. NIBP monitoring applied. Pulse ox on. NIBP on. 22:00 No provider procedures requiring assistance completed. Patient did not have IV access me1 during this emergency room visit. O2 via room air. 22:28 EKG done, by ED staff. vk 22:34 Nohemy Clark, RN is Primary Nurse. me1 Administered Medications: 22:30 Drug: Diazepam PO 5 mg PO once Route: PO; vc1 22:34 Follow up: Response: No adverse reaction; Anxiety decreased me1 22:34 Drug: HYDROcodone-acetaminophen PO 5 mg-325 mg 1 tabs PO once Route: PO; me1 22:37 Follow up: Response: No adverse reaction; Pain is decreased me1 Medication: 22:00 VIS not applicable for this client. me1 Outcome: 22:33 Discharge ordered by . sp4 22:43 Discharged to home via wheelchair, with significant other, me1 22:43 Condition: stable 22:43 Condition: stable 22:43 Discharge instructions given to patient, significant other, Instructed on discharge instructions, follow up and referral plans. Demonstrated understanding of instructions, follow-up care, 22:43 Patient left the ED. me1 Signatures: Bia Garcia jj6 Syeda Bruce RN RN vc1 Uriel Cannon MD MD sp4 Eddleman, Michelle, YANETH RN me1 Chata Gibbons
--- NOTE | 2023-10-10 13:21 | EKG ---
Test Date: 2023-10-08 Test Time: 22:22:23 Events Director: ALEIDA MEASUREMENT RESULTS: Intervals: Rate: 76 WI: 204 QRSD: 88 QT: 396 QTc: 445 [place]: P: 56 WI: 204 QRS: 12 T: 159 INTERPRETIVE STATEMENTS: Sinus rhythm with occasional premature ventricular complexes Left ventricular hypertrophy with repolarization abnormality Cannot rule out Septal infarct, age undetermined Abnormal ECG Compared to ECG 10/08/2023 02:07:47 Ventricular premature complex(es) now present Myocardial infarct finding now present Electronically Signed On 10-10-23 13:15:18 CDT by Josse Olson
[2023-10-10 18:01] VITALS: BP 110/68; TEMP 98.4; O2SAT 99
== END 2023-10-08 22:43 | disposition home or self-care (01) ==
LOC: ER 21:26
DX: F41.9 Anxiety disorder, unspecified (principal); I10 Essential (primary) hypertension; J44.9 Chronic obstructive pulmonary disease, unspecified; I69.954 Hemiplegia and hemiparesis following unspecified cerebrovascular disease affecting left non-dominant side; I25.2 Old myocardial infarction; Z88.8 Allergy status to other drugs, medicaments and biological substances; Z91.013 Allergy to seafood; Z91.018 Allergy to other foods
CPT/HCPCS: 93005; 99284

== ENCOUNTER 2023-10-19 16:53 | Emergency (ER) | payer OTHER ==
[2023-10-19] MEDS ORDERED: hydrOXYzine HCL 25 MG TAB ONE (18:50)
[2023-10-19 19:23] LABS: SARS-CoV-2 Antigen CONTROL BLUE LINE VIS/BG OK; SARS-CoV-2 Antigen Rapid Res Negative (Negative)
--- NOTE | 2023-10-19 19:26 | ER ---
Nurse's Notes [facility] Name: Geetha Khan Age: 48 yrs Sex: Female : 1975 Arrival Date: 10/19/2023 Time: 16:53 Bed 10 Private MD: Diagnosis: Anxiety disorder, unspecified;Diarrhea, unspecified Presentation: 10/18 16:56 Chief complaint: EMS states: Anxious because she has to press charges on her sister. nj1 Also, she has had diarrhea since yesterday. 16:56 Method Of Arrival: EMS: [facility] [place] 17:20 Coronavirus screen: Vaccine status: Patient reports being unvaccinated. Ebola Screen: nj1 Patient denies travel to an Ebola-affected area in the 21 days before illness onset. Initial Sepsis Screen: Does the patient meet any 2 criteria? No. Patient's initial sepsis screen is negative. Does the patient have a suspected source of infection? No. Patient's initial sepsis screen is negative. Risk Assessment: Do you want to hurt yourself or someone else? Patient reports no desire to harm self or others. Onset of symptoms was October 18, 2023. 17:20 Acuity: CORRINA 3 nj1 Historical: - Allergies: 17:21 Aspirin; nj1 17:21 CRANBERRY; nj1 17:21 FISH PRODUCT DERIVATIVES; nj1 17:21 GRAPEFRUIT; nj1 17:21 mushrooms; nj1 - Home Meds: 19:53 amlodipine oral [Active]; atorvastatin oral [Active]; Carbamazepine Oral [Active]; kj2 clopidogrel oral [Active]; hydrocodone-acetaminophen 7.5-325 mg Oral tablet [Active]; hydroxyzine HCl 25 mg Oral tablet 1 tab every 6 hours [Active]; lisinopril Oral [Active]; Metoprolol Tartrate Oral [Active]; nitroglycerin 0.4 mg SL Tablet [Active]; quetiapine oral [Active]; Zofran Oral [Active]; - PMHx: 17:21 Asthma; Cerebrovascular accident; Chronic Chest Pain; COPD; Hypertension; 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 - Infectious Disease History:: Denies. - Social history:: Smoking status: Patient reports the use of cigarette tobacco products, smokes one-half pack cigarettes per day. Screenin:45 [facility] ED Fall Risk Assessment (Adult) History of falling in the last 3 months, kj2 including since admission No falls in past 3 months (0 pts) Confusion or Disorientation No (0 pts) Intoxicated or Sedated No (0 pts) Impaired Gait Yes (1 pt) Mobility Assist Device Used Yes (1 pt) Altered Elimination Yes (1 pt) Score/Fall Risk Level 3 or more points = High Risk Maintained a safe environment, Educated pt \T\ family on fall prevention, incl call for assistance when getting out of bed, Hourly rounding (assess needs \T\ fall precautionary measures) done. 18:45 Abuse screen: Denies threats or abuse. Denies injuries from another. Nutritional kj2 screening: No deficits noted. Tuberculosis screening: No symptoms or risk factors identified. Assessment: 19:02 General: Appears in no apparent distress. Behavior is calm, cooperative. Pain: kj2 Complains of pain in chest pain Pain does not radiate. Pain began 1 hour ago. 19:56 Reassessment: discharge delayed due to order for EKG. kj2 Vital Signs: 17:20 BP 111 / 65; Pulse 72; Resp 17; Temp 97.2(TE); Pulse Ox 100% ; Weight 68.04 kg; Height nj1 5 ft. 2 in. ; 19:01 BP 111 / 78; Pulse 70; Resp 18; Temp 98.1; Pulse Ox 100% ; kj2 17:20 Body Mass Index 27.44 (68.04 kg, 157.48 cm) nj1 ED Course: 16:55 Patient arrived in ED. im 17:20 Triage completed. nj1 17:21 Arm band placed on right wrist. nj1 17:22 Kalli Bradshaw PA-C is PHCP. sb4 17:22 Kye De Anda MD is Attending Physician. sb4 18:48 Hortencia Maldonado RN is Primary Nurse. kj2 19:03 No provider procedures requiring assistance completed. kj2 19:52 Patient has correct armband on for positive identification. Provided Education on: call kj2 light, fall precautions. Client placed on continuous cardiac and pulse oximetry monitoring. NIBP monitoring applied. monitor tech on. 20:30 Patient did not have IV access during this emergency room visit. kj2 Administered Medications: 19:00 Drug: hydrOXYzine PO 25 mg PO once Route: PO; kj2 19:49 Follow up: Response: No adverse reaction kj2 Medication: 19:52 VIS not applicable for this client. kj2 Outcome: 19:25 Discharge ordered by . sb4 20:30 Discharged to home via wheelchair, kj2 20:30 Condition: stable 20:30 Discharge instructions given to patient, Instructed on discharge instructions, follow up and referral plans. safety practices, Demonstrated understanding of instructions, follow-up care, 20:42 Patient left the ED. kj2 Signatures: Kalli Bradshaw, PA-C PA-C sb4 Ceci Cleaning, RN RN nj1 Verna Jhaveri Krystal, RN RN kj2
--- NOTE | 2023-10-19 19:26 | EDPHYS ---
Physician Documentation [facility] Name: Geetha Khan Age: 48 yrs Sex: Female : 1975 Arrival Date: 10/19/2023 Time: 16:53 Bed 10 Private MD: ED Physician Kye De Anda HPI: 10/18 17:55 This 48 yrs old Female presents to ER via EMS with complaints of Anxiety. sb4 17:55 Onset: The symptoms/episode began/occurred just prior to arrival. Associated signs and sb4 symptoms: Pertinent positives: diarrhea, Pertinent negatives: chest pain, fever. Modifying factors: The patient symptoms are alleviated by nothing, the patient symptoms are aggravated by nothing. The patient has experienced similar episodes in the past. The patient has been recently seen at the [facility] Emergency Department, yesterday, for unrelated complaints. Historical: - Allergies: 17:21 Aspirin; nj1 17:21 CRANBERRY; nj1 17:21 FISH PRODUCT DERIVATIVES; nj1 17:21 GRAPEFRUIT; nj1 17:21 mushrooms; nj1 - Home Meds: 19:53 amlodipine oral [Active]; atorvastatin oral [Active]; Carbamazepine Oral [Active]; kj2 clopidogrel oral [Active]; hydrocodone-acetaminophen 7.5-325 mg Oral tablet [Active]; hydroxyzine HCl 25 mg Oral tablet 1 tab every 6 hours [Active]; lisinopril Oral [Active]; Metoprolol Tartrate Oral [Active]; nitroglycerin 0.4 mg SL Tablet [Active]; quetiapine oral [Active]; Zofran Oral [Active]; - PMHx: 17:21 Asthma; Cerebrovascular accident; Chronic Chest Pain; COPD; Hypertension; 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 - Infectious Disease History:: Denies. - Social history:: Smoking status: Patient reports the use of cigarette tobacco products, smokes one-half pack cigarettes per day. ROS: 17:55 Constitutional: Negative for fever, chills, and weight loss, sb4 17:55 Abdomen/GI: Positive for diarrhea, 17:55 Psych: Positive for anxiety, Negative for homicidal ideation, suicidal ideation, 17:55 All other systems are negative, Exam: 17:55 Constitutional: This is a well developed, well nourished patient who is awake, alert, sb4 and in no acute distress. Head/Face: Normocephalic, atraumatic. Eyes: Extra-ocular motions intact. Periorbital areas with no swelling, redness, or edema. ENT: Mucous membranes moist. Skin: Warm, dry with normal turgor. Normal color with no rashes, no lesions, and no evidence of cellulitis. Vital Signs: 17:20 BP 111 / 65; Pulse 72; Resp 17; Temp 97.2(TE); Pulse Ox 100% ; Weight 68.04 kg; Height nj1 5 ft. 2 in. ; 19:01 BP 111 / 78; Pulse 70; Resp 18; Temp 98.1; Pulse Ox 100% ; kj2 17:20 Body Mass Index 27.44 (68.04 kg, 157.48 cm) nj1 MDM: 17:22 Patient medically screened. sb4 19:25 Data reviewed: vital signs, nurses notes, lab test result(s), EKG, and as a result, I sb4 will discharge patient. Counseling: I had a detailed discussion with the patient and/or guardian regarding the historical points, exam findings, and any diagnostic results supporting the discharge/admit diagnosis, lab results, to return to the emergency department if symptoms worsen or persist or if there are any questions or concerns that arise at home. 10/18 17:39 Order name: SARS RAPID; Complete Time: 19:25 sb4 10/18 18:42 Order name: EKG; Complete Time: 18:43 sb4 10/18 18:42 Order name: EKG - Nurse/Tech; Complete Time: 20:42 sb4 EC:23 Rate is 66 beats/min. Rhythm is regular, Sinus Rhythm with PACs. OR interval is normal sb4 at 180 msec. QRS interval is normal at 88 msec. QT interval is normal at [address] changes noted. Clinical impression: Abnormal EKG without significant change. Interpreted by me. Reviewed by me. Administered Medications: 19:00 Drug: hydrOXYzine PO 25 mg PO once Route: PO; kj2 19:49 Follow up: Response: No adverse reaction kj2 Disposition: 20:21 Co-signature as Attending Physician, Kye De Anda MD I reviewed the patient's care rt provided by the Advanced Practice Provider and agree with the diagnosis and treatment plan. Disposition Summary: 10/19/23 19:25 Discharge Ordered Notes: Location: Home sb4 Problem: an ongoing problem sb4 Symptoms: have improved sb4 Condition: Stable sb4 Diagnosis - Anxiety disorder, unspecified sb4 - Diarrhea, unspecified sb4 Followup: sb4 - With: Emergency Department - When: As needed - Reason: Trouble breathing, Worsening of condition Discharge Instructions: - Discharge Summary Sheet sb4 - Food Choices to Help Relieve Diarrhea, Adult sb4 - Managing Anxiety, Adult sb4 Forms: - Patient Portal Instructions sb4 - Leadership Thank You Letter sb4 Signatures: Dispatcher [employer] EDMS Kalli Bradshaw PA-C PA-C sb4 Kye De Anda MD MD rt Ceci Cleaning RN RN nj1 Hortencia Maldonado RN RN kj2 Corrections: (The following items were deleted from the chart) 17:39 17:39 SARS-COV-2 Antigen Rapid+I.LAB.BRZ ordered. EDMS EDMS
[2023-10-19 23:55] VITALS: O2SAT 100
[2023-10-19 23:56] VITALS: BP 111/78; TEMP 98.1
--- NOTE | 2023-10-21 17:01 | EKG ---
Test Date: 2023-10-19 Test Time: 20:21:34 Marble Machine Operator: JOE MEASUREMENT RESULTS: Intervals: Rate: 66 TN: 180 QRSD: 88 QT: 444 QTc: 465 [place]: P: 14 TN: 180 QRS: -8 T: 158 INTERPRETIVE STATEMENTS: Sinus rhythm with premature atrial complexes with aberrant conduction Left ventricular hypertrophy with repolarization abnormality Inferior infarct, age undetermined Abnormal ECG Compared to ECG 10/18/2023 21:11:31 Atrial premature complex(es) now present Aberrant conduction of supraventricular beat(s) now present Myocardial infarct finding now present Electronically Signed On 10-21-23 16:57:35 CDT by Josse Olson
== END 2023-10-19 20:42 | disposition home or self-care (01) ==
LOC: ER 16:53
DX: F41.9 Anxiety disorder, unspecified (principal); R19.7 Diarrhea, unspecified; Z11.52 Encounter for screening for COVID-19
CPT/HCPCS: 36415; 87811; 93005; 99284

== ENCOUNTER 2023-10-20 20:26 | Emergency (ER) | payer OTHER ==
[2023-10-20] MEDS ORDERED: DIAZEPAM 5 MG TABLET ONE (20:46)
[2023-10-20] MEDS ORDERED: IBUPROFEN 200 MG TAB PO ONE (20:46)
[2023-10-20] MEDS ORDERED: ACETAMINOPHEN 500 MG TAB ONE (20:46)
--- NOTE | 2023-10-20 21:08 | EDPHYS ---
Physician Documentation [facility] Name: Geetha Khan Age: 48 yrs Sex: Female : 1975 Arrival Date: 10/20/2023 Time: 20:26 Bed 10 Private MD: ED Physician Uriel Cannon HPI: 10/19 20:31 This 48 yrs old Female presents to ER via Unassigned with complaints of chest sp4 pain, anxiety . 21:01 48-year-old female presents with acute onset of chest pain and anxiety. Patient is very sp4 familiar to me from prior medical visits. She usually comes in for chest pain and anxiety.. 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 - Infectious Disease History:: Denies. - Social history:: Smoking status: Patient reports the use of cigarette tobacco products, denies chronic smoking, but will smoke occasionally. - Family history:: not pertinent. ROS: 21:01 Constitutional: Negative for fever, chills, and weight loss, positive today for chest sp4 pain and anxiety 21:01 All other systems are negative, Exam: 21:01 Constitutional: This is a well developed, well nourished patient who is awake, alert, sp4 and in no acute distress. There is chronic left-sided hemiparesis Head/Face: Normocephalic, atraumatic. Eyes: Pupils equal round and reactive to light, extra-ocular motions intact. Lids and lashes normal. Conjunctiva and sclera are not injected. Cornea within normal limits. Periorbital areas with no swelling, redness, or edema. ENT: Nares patent. No nasal discharge, no septal abnormalities noted. Tympanic membranes are normal and external auditory canals are clear. Oropharynx with no redness, swelling, or masses, exudates, or evidence of obstruction, uvula midline. Mucous membranes moist. Neck: Trachea midline, no thyromegaly or masses palpated, and no cervical lymphadenopathy. Supple, full range of motion without nuchal rigidity, or vertebral point tenderness. Chest/axilla: Normal chest wall appearance and motion. Nontender with no deformity. No lesions are appreciated. Cardiovascular: Regular rate and rhythm with a normal S1 and S2. No gallops, murmurs, or rubs. Normal PMI, no JVD. No pulse deficits. Respiratory: Lungs have equal breath sounds bilaterally, clear to auscultation and percussion. No rales, rhonchi or wheezes noted. No increased work of breathing, no retractions or nasal flaring. Abdomen/GI: Soft, with normal bowel sounds. No distension or tympany. No guarding or rebound. No evidence of tenderness throughout. Back: No spinal tenderness. No costovertebral tenderness. Skin: Warm, dry with normal turgor. Normal color with no rashes, no lesions, and no evidence of cellulitis. MS/ Extremity: Pulses equal, no cyanosis. Neurovascular intact. Full, normal range of motion. Neuro: Awake and alert, GCS 15, oriented to person, place, time, and situation. Patient has chronic left-sided hemiparesis, no new neurologic deficits Psych: Awake, alert, with orientation to person, place and time. Behavior, mood, and affect are within normal limits 21:01 ECG was reviewed by the Attending Physician. EKG at 2057 reveals normal sinus rhythm with a rate of 69, no ST elevation or depression. Vital Signs: 20:35 BP 127 / 77; Pulse 63; Resp 16; Temp 97.5; Pulse Ox 98% ; Weight 65.77 kg; Height 5 ft. me1 2 in. ; Pain 10/10; 21:22 BP 116 / 84; Pulse 70; Resp 16; Temp 98.4; Pulse Ox 97% ; me1 20:35 Body Mass Index 26.52 (65.77 kg, 157.48 cm) me1 20:35 Pain Scale: Adult me1 MDM: 20:35 Patient medically screened. sp4 21:06 Differential diagnosis: acute pericarditis, anxiety, chest wall pain, costochondritis, sp4 gastritis. The patient was not given aspirin in the Emergency Department. Aspirin not given, patient refused. Data reviewed: vital signs, nurses notes, EMS record, old medical records, EKG. ED course: Stable for discharge home. 10/19 20:34 Order name: EKG; Complete Time: 20:35 sp4 10/19 20:34 Order name: EKG - Nurse/Tech; Complete Time: 21:02 sp4 EC:01 Rate is 69 beats/min. Rhythm is regular, Normal Sinus Rhythm. QRS [place] is Normal. [place] sp4 interval is normal. QRS interval is normal. QT interval is normal. No Q waves. No ST changes noted. Clinical impression: No evidence of ischemia. Interpreted by me. Reviewed by me. Administered Medications: 20:50 Drug: Acetaminophen PO 1000 mg PO once Route: PO; me1 21:06 Follow up: Response: No adverse reaction; Pain is decreased me1 20:51 Drug: Diazepam PO 5 mg PO once Route: PO; me1 21:06 Follow up: Response: No adverse reaction; Anxiety decreased me1 20:51 Drug: Ibuprofen PO 600 mg PO once Route: PO; me1 21:06 Follow up: Response: No adverse reaction; Pain is decreased me1 Disposition Summary: 10/20/23 21:07 Discharge Ordered Notes: Location: Home sp4 Condition: Stable sp4 Diagnosis - Chest pain, unspecified sp4 Followup: sp4 - With: Private Physician - When: As needed - Reason: Discharge Instructions: - Discharge Summary Sheet sp4 - Nonspecific Chest Pain, Adult, [id number] sp4 Signatures: Uriel Cannon MD MD sp4 Nohemy Clark RN RN me1
--- NOTE | 2023-10-20 21:08 | ER ---
Nurse's Notes 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 me1 Coronavirus screen: Vaccine status: Patient reports being unvaccinated. Ebola Screen: No symptoms or risks identified at this time. Initial Sepsis Screen: Does the patient meet any 2 criteria? No. Patient's initial sepsis screen is negative. Does the patient have a suspected source of infection? No. Patient's initial sepsis screen is negative. Risk Assessment: Do you want to hurt yourself or someone else? Patient reports no desire to harm self or others. Onset of symptoms was October 20, 2023. 20:35 Method Of Arrival: EMS: [facility] [place] 20:35 Acuity: CORRINA 3 me1 Triage Assessment: 20:38 General: Appears comfortable, unkempt, well developed, well nourished, Behavior is me1 calm, cooperative, appropriate for age, Reports cp 10/10 that started suddenly while watching tv. Does not radiate. Pain: Complains of pain in chest Pain does not radiate. Pain currently is 10 out of 10 on a pain scale. Quality of pain is described as sharp, Pain began suddenly, Is continuous. EENT: No signs and/or symptoms were reported regarding the EENT system. Neuro: Level of Consciousness is awake, alert, obeys commands, Oriented to person, place, time, situation, Appropriate for age. Cardiovascular: Reports chest pain, Patient's skin is warm and dry. Respiratory: Airway is patent Trachea midline Respiratory effort is even, unlabored, Respiratory pattern is regular, symmetrical. GI: No signs and/or symptoms were reported involving the gastrointestinal system. : No signs and/or symptoms were reported regarding the genitourinary system. Derm: Skin is intact, is healthy with good turgor, Skin is pink, warm \T\ dry. Musculoskeletal: No signs and/or symptoms reported regarding the musculoskeletal system. 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 - Infectious Disease History:: Denies. - Social history:: Smoking status: Patient reports the use of cigarette tobacco products, denies chronic smoking, but will smoke occasionally. - Family history:: not pertinent. Screenin:40 [facility] ED Fall Risk Assessment (Adult) History of falling in the last 3 months, me1 including since admission No falls in past 3 months (0 pts) Confusion or Disorientation No (0 pts) Intoxicated or Sedated No (0 pts) Impaired Gait Yes (1 pt) Mobility Assist Device Used Yes (1 pt) Altered Elimination Yes (1 pt) Score/Fall Risk Level 0 - 2 = Low Risk Maintained a safe environment, Provided non-skid footwear, Hourly rounding (assess needs \T\ fall precautionary measures) done. Abuse screen: Denies threats or abuse. Nutritional screening: No deficits noted. Tuberculosis screening: No symptoms or risk factors identified. Assessment: 20:40 General: see triage assessment. . me1 Vital Signs: 20:35 BP 127 / 77; Pulse 63; Resp 16; Temp 97.5; Pulse Ox 98% ; Weight 65.77 kg; Height 5 ft. me1 2 in. ; Pain 10/10; 21:22 BP 116 / 84; Pulse 70; Resp 16; Temp 98.4; Pulse Ox 97% ; me1 20:35 Body Mass Index 26.52 (65.77 kg, 157.48 cm) me1 20:35 Pain Scale: Adult me1 ED Course: 20:27 Patient arrived in ED. sb4 20:31 Uriel Cannon MD is Attending Physician. sp4 20:35 Nohemy Clark RN is Primary Nurse. me1 20:38 Triage completed. me1 20:38 Arm band placed on Patient placed in an exam room. me1 20:40 Patient has correct armband on for positive identification. Bed in low position. Call me1 light in reach. Side rails up X2. Provided Education on: POC. Verbalized understanding. . Client placed on continuous cardiac and pulse oximetry monitoring. NIBP monitoring applied. Pulse ox on. NIBP on. 20:40 No provider procedures requiring assistance completed. me1 21:23 Patient did not have IV access during this emergency room visit. me1 Administered Medications: 20:50 Drug: Acetaminophen PO 1000 mg PO once Route: PO; me1 21:06 Follow up: Response: No adverse reaction; Pain is decreased me1 20:51 Drug: Diazepam PO 5 mg PO once Route: PO; me1 21:06 Follow up: Response: No adverse reaction; Anxiety decreased me1 20:51 Drug: Ibuprofen PO 600 mg PO once Route: PO; me1 21:06 Follow up: Response: No adverse reaction; Pain is decreased me1 Medication: 20:40 VIS not applicable for this client. me1 Outcome: 21:07 Discharge ordered by . laurie 21:23 Discharged to home via wheelchair, with family, me1 21:23 Condition: stable 21:23 Discharge instructions given to patient, Instructed on discharge instructions, follow up and referral plans. Demonstrated understanding of instructions, follow-up care, 21:24 Patient left the ED. me1 Signatures: Kalli Bradshaw PA-C PA-C sb4 Potepalov, Sergey, MD MD sp4 Nohemy Clark RN RN me1
[2023-10-21 02:05] VITALS: BP 116/84; TEMP 98.4; O2SAT 97
--- NOTE | 2023-10-21 16:57 | EKG ---
Test Date: 2023-10-20 Test Time: 20:58:51 [employer] Business Systems Analyst: MEASUREMENT RESULTS: Intervals: Rate: 69 TX: 196 QRSD: 84 QT: 438 QTc: 469 [place]: P: 58 [place]: 196 QRS: 24 T: 162 INTERPRETIVE STATEMENTS: Normal sinus rhythm Cannot rule out Anterior infarct, age undetermined ST & T wave abnormality, consider inferolateral ischemia Abnormal ECG Compared to ECG 10/19/2023 20:21:34 ST (T wave) deviation now present Possible ischemia now present Atrial premature complex(es) no longer present Aberrant conduction of supraventricular beat(s) no longer present Left ventricular hypertrophy no longer present Early repolarization no longer present Myocardial infarct finding still present Electronically Signed On 10-21-23 16:56:40 CDT by Josse Olson
--- NOTE | 2023-10-21 17:05 | EKG ---
Test Date: 2023-10-18 Test Time: 21:11:31 Social Organization Professor: AF MEASUREMENT RESULTS: Intervals: Rate: 76 KS: 190 QRSD: 86 QT: 410 QTc: 461 [place]: P: 43 [place]: 190 QRS: 15 T: 151 INTERPRETIVE STATEMENTS: Normal sinus rhythm Left ventricular hypertrophy with repolarization abnormality Abnormal ECG Compared to ECG 10/15/2023 20:33:32 No significant changes Electronically Signed On 10-21-23 16:59:06 CDT by Josse Olson
== END 2023-10-20 21:24 | disposition home or self-care (01) ==
LOC: ER 20:26
DX: R07.9 Chest pain, unspecified (principal)
CPT/HCPCS: 93005; 99284

== ENCOUNTER 2023-10-21 21:08 | Emergency (ER) | payer OTHER ==
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
--- NOTE | 2023-10-21 21:36 | ER ---
Nurse's Notes [facility] Name: Geetha Khan Age: 48 yrs Sex: Female : 1975 Arrival Date: 10/21/2023 Time: 21:08 Bed IW1 Private MD: Diagnosis: Chest pain, chronic Presentation: 10/20 21:18 Chief complaint: Patient states: STARTED HAVING CP X30 MINUTES AGO WHILE AT HER jj7 JOB. HURTS EVERY TIME SHE TAKES A DEEP BREATH. STATES SHE IS OUT OF ALL HER MEDS. HER PAIN MEDS (VICODIN) AND MEDS FOR NAUSEA. Coronavirus screen: At this time, the client does not indicate any symptoms associated with coronavirus-19. Ebola Screen: No symptoms or risks identified at this time. Initial Sepsis Screen: Does the patient meet any 2 criteria? No. Patient's initial sepsis screen is negative. Does the patient have a suspected source of infection? No. Patient's initial sepsis screen is negative. Risk Assessment: Do you want to hurt yourself or someone else? Patient reports no desire to harm self or others. Onset of symptoms was October 21, 2023. 21:18 Method Of Arrival: Wheelchair j7 21:18 Acuity: CORRINA 3 jj7 Triage Assessment: 21:28 General: Appears in no apparent distress. comfortable, Behavior is calm, cooperative, jj7 appropriate for age. Pain: Complains of pain in chest. Cardiovascular: Reports chest pain. 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 - Infectious Disease History:: Denies. - Social history:: Smoking status: Patient reports the use of cigarette tobacco products, 2 CIGS A DAY, Patient uses Patient/guardian denies using alcohol, street drugs, IV drugs. Screenin:34 [facility] ED Fall Risk Assessment (Adult) History of falling in the last 3 months, jj7 including since admission Yes- fall prone (multiple falls) (3 pts) Confusion or Disorientation No (0 pts) Intoxicated or Sedated No (0 pts) Impaired Gait Yes (1 pt) Mobility Assist Device Used No (0 pt) Altered Elimination No (0 pt) Score/Fall Risk Level 3 or more points = High Risk Oriented to surroundings, Maintained a safe environment, Educated pt \T\ family on fall prevention, incl call for assistance when getting out of bed. Abuse screen: Denies threats or abuse. Nutritional screening: No deficits noted. Tuberculosis screening: No symptoms or risk factors identified. Assessment: 21:34 Reassessment: SEE TRIAGE ASSESSMENT. jj7 Vital Signs: 21:18 BP 118 / 79; Pulse 71; Resp 16; Temp 97.8; Pulse Ox 99% ; Weight 65.77 kg; Height 5 ft. jj7 2 in. ; Pain 10/10; 21:18 Body Mass Index 26.52 (65.77 kg, 157.48 cm) jj7 21:18 Pain Scale: Adult jj7 ED Course: 21:13 Patient arrived in ED. sb4 21:13 Kalli Bradshaw PA-C [facility] sb4 21:13 Kye De Anda MD is Attending Physician. sb4 21:28 Triage completed. jj7 21:28 Arm band placed on right wrist. jj7 21:30 EKG completed in triage. Results shown to MD. jj7 21:34 Patient has correct armband on for positive identification. Provided Education on: FALL jj7 SAFETY. 21:34 No provider procedures requiring assistance completed. Patient did not have IV access jj7 during this emergency room visit. 21:35 Josse Olson MD is Referral Physician. sb4 Administered Medications: 21:42 Drug: HYDROcodone-acetaminophen PO 5 mg-325 mg 1 tabs PO once Route: PO; jj7 21:42 Follow up: Response: No adverse reaction jj7 Medication: 21:34 VIS not applicable for this client. jj7 Outcome: 21:36 Discharge ordered by . sb4 21:43 Discharged to home via wheelchair, with family, jj7 21:43 Condition: good 21:43 Discharge instructions given to patient, Instructed on discharge instructions, follow up and referral plans. Demonstrated understanding of instructions, follow-up care, 21:43 Patient left the ED. jj7 Signatures: Ernestine Nielson RN RN jj7 Kalli Bradshaw PAGiseleC PAGiseleC sb4
[2023-10-21] MEDS ORDERED: HYDROCODONE/APAP 5/325 MG TAB ONE (21:37)
== END 2023-10-21 21:43 | disposition home or self-care (01) ==
LOC: ER 21:08
DX: R07.89 Other chest pain (principal); I10 Essential (primary) hypertension
CPT/HCPCS: 99283

== ENCOUNTER 2023-10-22 19:48 | Emergency (ER) | payer OTHER ==
[2023-10-22] MEDS ORDERED: TDAP (DIPHTH,PERTUSS(ACELL),TET VAC) 0.5 ML VIAL IMVAC ONE (21:07)
[2023-10-22] MEDS ORDERED: HYDROCODONE/APAP 5/325 MG TAB ONE (21:07)
--- NOTE | 2023-10-22 21:53 | RAD REPORT ---
EXAM DESCRIPTION: CT - CTHCSPWOC - 10/22/2023 9:38 pm CLINICAL HISTORY: Trauma, head and neck injury. Pain;Trauma COMPARISON: Head C Spine Mpr Wo Con dated 07/03/2023; CT HEAD CSPINE MPR WO CONTRAST dated 03/04/2012 TECHNIQUE: Axial 5 mm thick images of the head were obtained. Axial 2 mm thick images of the cervical spine were obtained with sagittal and coronal reconstruction images generated and reviewed. All CT scans are performed using dose optimization technique as appropriate and may include automated exposure control or mA/KV adjustment according to patient size. FINDINGS: CT HEAD WITHOUT CONTRAST: No acute hemorrhage, hydrocephalus or extra-axial collection is identified.No areas of brain edema or midline shift. Remote right basal ganglia/subinsular/ bernal radiata infarct. Circumferential thickening in the maxillary and sphenoid sinuses.The calvarium is intact. CT CERVICAL SPINE WITHOUT CONTRAST: No fracture or subluxation.No prevertebral soft tissues swelling is identified. IMPRESSION: No acute intracranial or cervical spine findings.
--- NOTE | 2023-10-22 21:53 | RAD REPORT ---
EXAM DESCRIPTION: RAD - Forearm Left - 10/22/2023 9:25 pm CLINICAL HISTORY: PAIN COMPARISON: No comparisons FINDINGS/IMPRESSION: No acute fracture. No malalignment. No significant focal degenerative changes.
--- NOTE | 2023-10-22 21:54 | RAD REPORT ---
EXAM DESCRIPTION: RAD - Ankle Left 3 View - 10/22/2023 9:25 pm CLINICAL HISTORY: PAIN COMPARISON: No comparisons FINDINGS/IMPRESSION: No acute fracture. No malalignment. Plantar and dorsal aspect calcaneal spurs. Osteopenia.
[2023-10-22] MEDS ORDERED: DERMABOND SKIN ADHESIVE TOP ONE (22:19)
--- NOTE | 2023-10-22 22:25 | ER ---
Nurse's Notes [facility] Name: Geetha Khan Age: 48 yrs Sex: Female : 1975 Arrival Date: 10/22/2023 Time: 19:48 Bed 27 Private MD: Diagnosis: Unspecified injury of head, initial encounter;Laceration without foreign body of scalp;Pain in left arm;Abrasion of left shoulder;Pain and abrasion of left ankle Presentation: 10/21 19:57 Chief complaint: Patient states: Was outside on wheelchair, didn't see the end of the nj1 curve, went over and wheelchair went sideways making her fall on her left side. Complains of head, left shoulder and left ankle pain. Coronavirus screen: Vaccine status: Patient reports being unvaccinated. Ebola Screen: Patient denies travel to an Ebola-affected area in the 21 days before illness onset. Initial Sepsis Screen: Does the patient meet any 2 criteria? No. Patient's initial sepsis screen is negative. Does the patient have a suspected source of infection? No. Patient's initial sepsis screen is negative. Risk Assessment: Do you want to hurt yourself or someone else? Patient reports no desire to harm self or others. Onset of symptoms was October 22, 2023. 19:57 Method Of Arrival: Wheelchair [facility] 19:57 Acuity: CORRINA 3 nj1 Triage Assessment: 20:03 General: Appears in no apparent distress. uncomfortable, Behavior is calm, cooperative, nj1 appropriate for age. Pain: Complains of pain in head Pain currently is 10 out of 10 on a pain scale. Quality of pain is described as aching. Neuro: Level of Consciousness is awake, alert, obeys commands, Oriented to person, place, time, situation. Respiratory: Airway is patent Respiratory effort is even, unlabored. Historical: - Allergies: 20:01 Aspirin; nj1 20:01 CRANBERRY; nj1 20:01 FISH PRODUCT DERIVATIVES; nj1 20:01 GRAPEFRUIT; nj1 20:01 mushrooms; nj1 - PMHx: 20:01 Asthma; Cerebrovascular accident; Chronic Chest Pain; COPD; Hypertension; 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 - Infectious Disease History:: Denies. - Social history:: Smoking status: Patient reports the use of cigarette tobacco products, smokes one-half pack cigarettes per day. Screenin:42 [facility] ED Fall Risk Assessment (Adult) History of falling in the last 3 months, vc1 including since admission No falls in past 3 months (0 pts) Confusion or Disorientation No (0 pts) Intoxicated or Sedated No (0 pts) Impaired Gait No (0 pts) Mobility Assist Device Used No (0 pt) Altered Elimination No (0 pt) Score/Fall Risk Level 0 - 2 = Low Risk Oriented to surroundings, Maintained a safe environment, Educated pt \T\ family on fall prevention, incl call for assistance when getting out of bed. Abuse screen: Denies threats or abuse. Nutritional screening: No deficits noted. Tuberculosis screening: No symptoms or risk factors identified. Assessment: 22:47 General: Appears in no apparent distress. comfortable, unkempt, Behavior is calm, vc1 cooperative. Pain: Complains of pain in outer aspect of left eyebrow, left arm and left leg. Neuro: Level of Consciousness is awake, alert, obeys commands, Oriented to person, place, time, situation, Appropriate for age. Cardiovascular: No deficits noted. Respiratory: Airway is patent Respiratory effort is even, unlabored, Respiratory pattern is regular, symmetrical. GI: No deficits noted. No signs and/or symptoms were reported involving the gastrointestinal system. : No deficits noted. No signs and/or symptoms were reported regarding the genitourinary system. EENT: No deficits noted. No signs and/or symptoms were reported regarding the EENT system. Derm: Wound noted outer aspect of left eyebrow Bruising that is bright red, on anterior aspect of left shoulder. Vital Signs: 19:57 BP 108 / 63; Pulse 67; Resp 18; Temp 97.8(O); Pulse Ox 96% on R/A; Weight 65.77 kg; nj1 Height 5 ft. 5 in. ; Pain 10/10; 19:57 Body Mass Index 24.13 (65.77 kg, 165.1 cm) nj1 19:57 Pain Scale: Adult [facility] ED Course: 19:48 Patient arrived in ED. im 19:59 Hoa dEdy MD is Attending Physician. sp3 20:01 Triage completed. nj1 20:02 Arm band placed on right wrist. nj1 20:03 Kathy Kerns FNP-C [facility]. kb 20:03 Hoa Eddy MD is Attending Physician. kb 21:26 Humerus Left XRAY In Process Unspecified. EDMS 21:27 Forearm Left XRAY In Process Unspecified. EDMS 21:27 Ankle Left 3 View XRAY In Process Unspecified. EDMS 21:40 CT Head C Spine In Process Unspecified. EDMS 22:40 Syeda Bruce, RN is Primary Nurse. vc1 22:44 No provider procedures requiring assistance completed. Patient did not have IV access vc1 during this emergency room visit. Administered Medications: 21:11 Drug: Boostrix Tdap IM 0.5 ml IM once; as a single dose Route: IM; Site: right deltoid; vc1 21:11 Drug: HYDROcodone-acetaminophen PO 5 mg-325 mg 1 tabs PO once Route: PO; vc1 Medication: 22:46 VIS not applicable for this client. vc1 Outcome: 22:25 Discharge ordered by . 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 medication usage, Demonstrated understanding of instructions, follow-up care, 22:52 Patient left the ED. vc1 Signatures: Dispatcher [employer] EDOR Kathy Kerns FNP-C PRODUCT TEST ENGINEER-Ckb Hoa Eddy MD MD sp3 Syeda Bruce, RN RN vc1 Ceci Cleaning RN RN nj1 Verna Jhaveri
--- NOTE | 2023-10-22 22:25 | EDPHYS ---
Physician Documentation [facility] Name: Geetha Khan Age: 48 yrs Sex: Female : 1975 Arrival Date: 10/22/2023 Time: 19:48 Bed 27 Private MD: ED Physician Hoa Eddy HPI: 10/21 22:47 This 48 yrs old Female presents to ER via Wheelchair with complaints of Fall Injury. 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 kb States she wheeled outside and didn't realize where the porch ended so her front wheels went off the porch and she fell forward. States she hit head on the ground. Complaints of headache, left shoulder, elbow and ankle pain. Denies loc. Historical: - Allergies: 20:01 Aspirin; nj1 20:01 CRANBERRY; nj1 20:01 FISH PRODUCT DERIVATIVES; nj1 20:01 GRAPEFRUIT; nj1 20:01 mushrooms; nj1 - PMHx: 20:01 Asthma; Cerebrovascular accident; Chronic Chest Pain; COPD; Hypertension; 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 - Infectious Disease History:: Denies. - Social history:: Smoking status: Patient reports the use of cigarette tobacco products, smokes one-half pack cigarettes per day. ROS: 22:45 Constitutional: As per HPI kb Exam: 22:45 Constitutional: This is a well developed, well nourished patient who is awake, alert, kb and in no acute distress. ENT: Moist Mucous membranes Cardiovascular: Regular rate Respiratory: Respirations even and unlabored. No increased work of breathing. Talking in full sentences Abdomen/GI: Soft, non-tender. No distention Neuro: Awake and alert, GCS 15, oriented to person, place, time, and situation 22:45 Skin: 0.5cm laceration to outer left eyebrow, abrasion to left shoulder and left ankle. Vital Signs: 19:57 BP 108 / 63; Pulse 67; Resp 18; Temp 97.8(O); Pulse Ox 96% on R/A; Weight 65.77 kg; nj1 Height 5 ft. 5 in. ; Pain 10/10; 19:57 Body Mass Index 24.13 (65.77 kg, 165.1 cm) nj1 19:57 Pain Scale: Adult nj1 MDM: 19:59 Patient medically screened. sp3 22:46 Differential diagnosis: abrasion, closed head injury, contusion, fracture. Data kb reviewed: vital signs, nurses notes. Counseling: I had a detailed discussion with the patient and/or guardian regarding the historical points, exam findings, and any diagnostic results supporting the discharge/admit diagnosis, radiology results, the need for outpatient follow up, a family practitioner, to return to the emergency department if symptoms worsen or persist or if there are any questions or concerns that arise at home. 10/21 21:01 Order name: CT Head C Spine; Complete Time: 21:54 kb 10/21 21:01 Order name: Humerus Left XRAY; Complete Time: 21:54 kb 10/21 21:01 Order name: Forearm Left XRAY; Complete Time: 21:54 kb 10/21 21:01 Order name: Ankle Left 3 View XRAY; Complete Time: 21:54 kb 10/21 22:16 Order name: Dermabond; Complete Time: 22:32 kb Administered Medications: 21:11 Drug: Boostrix Tdap IM 0.5 ml IM once; as a single dose Route: IM; Site: right deltoid; vc1 21:11 Drug: HYDROcodone-acetaminophen PO 5 mg-325 mg 1 tabs PO once Route: PO; vc1 Disposition Summary: 10/22/23 22:25 Discharge Ordered Notes: Location: Home kb Condition: Stable kb Diagnosis - Unspecified injury of head, initial encounter kb - Laceration without foreign body of scalp kb - Pain in left arm kb - Abrasion of left shoulder kb - Pain and abrasion of left ankle kb Followup: kb - With: Emergency Department - When: As needed - Reason: Worsening of condition Followup: kb - With: Private Physician - When: 2 - 3 days - Reason: Recheck today's complaints, Continuance of care, Re-evaluation by your physician Discharge Instructions: - Discharge Summary Sheet kb - Musculoskeletal Pain kb - Abrasion, [id number] kb - Facial Laceration, [id number] kb - Head Injury, Adult, [id number] kb Forms: - Medication Reconciliation Form kb - Antibiotic Education kb - Prescription Opioid Use kb - Patient Portal Instructions kb - Leadership Thank You Letter kb Signatures: Dispatcher [employer] Kathy Hines, VP BIOLOGY-C VP BIOLOGY-Ckb Hoa Eddy MD MD sp3 Syeda Bruce RN RN vc1 Ceci Cleaning RN RN nj1
[2023-10-23 09:22] VITALS: BP 108/63; TEMP 97.8; O2SAT 96
== END 2023-10-22 22:52 | disposition home or self-care (01) ==
LOC: ER 19:48
DX: S01.01XA Laceration without foreign body of scalp, initial encounter (principal); S40.212A Abrasion of left shoulder, initial encounter; S90.512A Abrasion, left ankle, initial encounter; M79.602 Pain in left arm; M25.572 Pain in left ankle and joints of left foot
CPT/HCPCS: 70450; 72125; 96372; 99284

== ENCOUNTER 2023-10-23 20:17 | Emergency (ER) | payer OTHER ==
--- NOTE | 2023-10-23 21:10 | ER ---
Nurse's Notes [facility] Name: Geetha Khan Age: 48 yrs Sex: Female : 1975 Arrival Date: 10/23/2023 Time: 20:17 Bed IW5 Private MD: Diagnosis: Noncardiac chest pain Presentation: 10/22 20:55 Chief complaint: EMS states: Called to patient's home for chest pain s/p fall cm10 yesterday. Pt complaining of pain to the left side of her body that started after she fell. Pt was seen here and evaluated yesterday for the fall. Coronavirus screen: Client denies travel out of the [place] in the last 14 days. At this time, the client does not indicate any symptoms associated with coronavirus-19. Ebola Screen: Patient denies travel to an Ebola-affected area in the 21 days before illness onset. No symptoms or risks identified at this time. Initial Sepsis Screen: Does the patient meet any 2 criteria? No. Patient's initial sepsis screen is negative. Does the patient have a suspected source of infection? No. Patient's initial sepsis screen is negative. Risk Assessment: Do you want to hurt yourself or someone else? Patient reports no desire to harm self or others. Onset of symptoms was October 23, 2023. 20:55 Method Of Arrival: EMS: [facility] cm10 20:55 Acuity: CORRINA 2 cm10 Triage Assessment: 20:57 General: Appears in no apparent distress. comfortable, Behavior is calm, cooperative. cm10 Neuro: No deficits noted. Level of Consciousness is awake, alert, obeys commands, Oriented to person, place, time, situation, Appropriate for age. Respiratory: No deficits noted. Airway is patent Respiratory effort is even, unlabored, Respiratory pattern is regular, symmetrical. 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 - Infectious Disease History:: Denies. - Social history:: Smoking status: Patient reports the use of cigarette tobacco products, smokes one-half pack cigarettes per day. Screenin:[address] [facility] ED Fall Risk Assessment (Adult) History of falling in the last 3 months, cm10 including since admission Yes- single mechanical fall (1 pt) Confusion or Disorientation No (0 pts) Intoxicated or Sedated No (0 pts) Impaired Gait No (0 pts) Mobility Assist Device Used No (0 pt) Altered Elimination No (0 pt) Score/Fall Risk Level 0 - 2 = Low Risk Oriented to surroundings, Maintained a safe environment, Hourly rounding (assess needs \T\ fall precautionary measures) done. Abuse screen: Denies threats or abuse. Denies injuries from another. Nutritional screening: No deficits noted. Tuberculosis screening: No symptoms or risk factors identified. Assessment: 21:14 Pain: Complains of pain in chest Pain does not radiate. Pain began. cm10 Vital Signs: 20:55 BP 113 / 75; Pulse 67; Resp 18; Temp 97.4(TE); Pulse Ox 100% on R/A; Weight 72.57 kg; cm10 Height 5 ft. 5 in. ; Pain 10/10; 20:55 Body Mass Index 26.63 (72.57 kg, 165.1 cm) cm10 20:55 Pain Scale: Adult cm10 ED Course: 20:18 Patient arrived in ED. mr 20:19 Hoa Eddy MD is Attending Physician. sp3 20:56 Triage completed. cm10 20:57 Arm band placed on Patient placed in waiting room. cm10 21:07 Patient has correct armband on for positive identification. Provided Education on: Er cm10 process and procedures.. Cardiac monitoring not applicable on this patient. 21:07 No provider procedures requiring assistance completed. EKG done, by ED staff, reviewed cm10 by Hoa Eddy MD. Patient did not have IV access during this emergency room visit. Patient maintains SpO2 saturation greater than 95% on room air. Administered Medications: No medications were administered Medication: 21:07 VIS not applicable for this client. cm10 Outcome: 21:09 Discharge ordered by MD. sp3 21:13 Discharged to home via wheelchair, cm10 21:13 Condition: good 21:13 Discharge instructions given to patient, Instructed on discharge instructions, follow up and referral plans. Demonstrated understanding of instructions, follow-up care, 21:14 Patient left the ED. cm10 Signatures: Clair Marina, Mauro Reg Hoa Butterfield MD MD sp3 Kelsey Khan RN RN cm10
--- NOTE | 2023-10-23 21:10 | EDPHYS ---
Physician Documentation [facility] Name: Geetha Khan Age: 48 yrs Sex: Female : 1975 Arrival Date: 10/23/2023 Time: 20:17 Bed IW5 Private MD: ED Physician Hoa Eddy HPI: 10/22 21:08 This 48 yrs old Female presents to ER via EMS with complaints of Chest Pain. sp3 21:08 48-year-old female with history of PR, seizures, chronic chest pain, malingering, sp3 well-known to the ED now presents again today for chest pain. Patient has been here almost every single day this month. Workups have been negative. Review of systems otherwise negative other than her chronic chest pain.. 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 - Infectious Disease History:: Denies. - Social history:: Smoking status: Patient reports the use of cigarette tobacco products, smokes one-half pack cigarettes per day. ROS: 21:08 Constitutional: Negative for fever, chills, and weight loss, Eyes: Negative for injury, sp3 pain, redness, and discharge, ENT: Negative for injury, pain, and discharge, Neck: Negative for injury, pain, and swelling, Respiratory: Negative for shortness of breath, cough, wheezing, and pleuritic chest pain, Abdomen/GI: Negative for abdominal pain, nausea, vomiting, diarrhea, and constipation, Back: Negative for injury and pain, MS/Extremity: Negative for injury and deformity, Skin: Negative for injury, rash, and discoloration, Neuro: Negative for headache, weakness, numbness, tingling, and seizure, Psych: Negative for depression, anxiety, suicide ideation, homicidal ideation, and hallucinations, Allergy/Immunology: Negative for hives, rash, and allergies, Endocrine: Negative for neck swelling, polydipsia, polyuria, polyphagia, and marked weight changes, Hematologic/Lymphatic: Negative for swollen nodes, abnormal bleeding, and unusual bruising, 21:08 All other systems are negative, Exam: 21:08 Constitutional: This is a well developed, well nourished patient who is awake, alert, sp3 and in no acute distress. Head/Face: Normocephalic, atraumatic. Eyes: Pupils equal round and reactive to light, extra-ocular motions intact. Lids and lashes normal. Conjunctiva and sclera are non-icteric and not injected. Cornea within normal limits. Periorbital areas with no swelling, redness, or edema. Neck: Trachea midline, no thyromegaly or masses palpated, and no cervical lymphadenopathy. Supple, full range of motion without nuchal rigidity, or vertebral point tenderness. No Meningismus. Chest/axilla: Normal chest wall appearance and motion. Nontender with no deformity. No lesions are appreciated. Cardiovascular: Regular rate and rhythm with a normal S1 and S2. No gallops, murmurs, or rubs. Normal PMI, no JVD. No pulse deficits. Respiratory: Lungs have equal breath sounds bilaterally, clear to auscultation and percussion. No rales, rhonchi or wheezes noted. No increased work of breathing, no retractions or nasal flaring. Abdomen/GI: Soft, non-tender, with normal bowel sounds. No distension or tympany. No guarding or rebound. No evidence of tenderness throughout. Back: No spinal tenderness. No costovertebral tenderness. Full range of motion. Skin: Warm, dry with normal turgor. Normal color with no rashes, no lesions, and no evidence of cellulitis. MS/ Extremity: Pulses equal, no cyanosis. Neurovascular intact. Full, normal range of motion. Neuro: Awake and alert, GCS 15, oriented to person, place, time, and situation. Cranial nerves II-XII grossly intact. Motor strength 5/5 in all extremities. Sensory grossly intact. Cerebellar exam normal. Normal gait. 21:08 ECG was reviewed by the Attending Physician. EKG demonstrates normal sinus rhythm at 65 bpm with leftward axis nonspecific diffuse ST/T changes consistent with prior EKGs with no demonstrable changes. Vital Signs: 20:55 BP 113 / 75; Pulse 67; Resp 18; Temp 97.4(TE); Pulse Ox 100% on R/A; Weight 72.57 kg; cm10 Height 5 ft. 5 in. ; Pain 10/; 20:55 Body Mass Index 26.63 (72.57 kg, 165.1 cm) cm10 20:55 Pain Scale: Adult cm10 MDM: 20:59 Patient medically screened. sp3 21:09 Data reviewed: vital signs, nurses notes, EKG. ED course: Clinically have ruled out PR, sp3 sepsis, shock, or any other critical illness. Patient is in no acute distress and we will safely discharge her home.. 10/22 20:43 Order name: EKG; Complete Time: 20:43 sp3 10/22 20:43 Order name: EKG - Nurse/Tech; Complete Time: 21:07 sp3 Administered Medications: No medications were administered Disposition Summary: 10/23/23 21:09 Discharge Ordered Notes: Location: Home sp3 Condition: Stable sp3 Diagnosis - Noncardiac chest pain sp3 Followup: sp3 - With: Private Physician - When: Upon discharge from the Emergency Department - Reason: Continuance of care Discharge Instructions: - Discharge Summary Sheet sp3 - Chronic Pain, Adult sp3 Forms: - Medication Reconciliation Form sp3 - Antibiotic Education sp3 - Prescription Opioid Use sp3 - Patient Portal Instructions sp3 - Leadership Thank You Letter sp3 Signatures: Hoa Eddy MD MD sp3 Kelsey Khan RN RN cm10
[2023-10-23 21:34] VITALS: BP 113/75; TEMP 97.4; O2SAT 100
--- NOTE | 2023-10-24 13:06 | EKG ---
Test Date: 2023-10-23 Test Time: 21:05:04 Acid Maker: JEANNA MEASUREMENT RESULTS: Intervals: Rate: 65 MN: 170 QRSD: 88 QT: 442 QTc: 459 [place]: P: 34 MN: 170 QRS: -4 T: 131 INTERPRETIVE STATEMENTS: Sinus rhythm with occasional premature ventricular complexes Left ventricular hypertrophy with repolarization abnormality Abnormal ECG Compared to ECG 10/21/2023 21:26:52 No significant changes Electronically Signed On 10-24-23 13:04:58 CDT by Josse Olson
== END 2023-10-23 21:14 | disposition home or self-care (01) ==
LOC: ER 20:17
DX: R07.89 Other chest pain (principal)
CPT/HCPCS: 93005

== ENCOUNTER 2023-10-24 22:01 | Emergency (ER) | payer OTHER ==
[2023-10-24] MEDS ORDERED: HYDROCODONE/APAP 10/325 TAB ONE (23:24)
--- NOTE | 2023-10-24 23:28 | ER ---
Nurse's Notes [facility] Name: Geetha Khan Age: 48 yrs Sex: Female : 1975 Arrival Date: 10/24/2023 Time: 22:01 Bed IW1 Private MD: Diagnosis: Acute pain due to trauma Presentation: 10/23 22:14 Chief complaint: Patient states: entire left side pain s/p fall here for same complaint kl x 3. Coronavirus screen: Vaccine status: Patient reports receiving the 2nd dose of the covid vaccine. Ebola Screen: Patient negative for fever greater than or equal to 101.5 degrees Fahrenheit, and additional compatible Ebola Virus Disease symptoms. Initial Sepsis Screen: Does the patient meet any 2 criteria? No. Patient's initial sepsis screen is negative. Does the patient have a suspected source of infection? No. Patient's initial sepsis screen is negative. Risk Assessment: Do you want to hurt yourself or someone else? Patient reports no desire to harm self or others. 22:14 Method Of Arrival: Wheelchair kl 22:14 Acuity: CORRINA 5 kl 22:17 Note pt reports out of medication. Triage Assessment: 22:16 General: Appears in no apparent distress. unkempt, Behavior is calm, cooperative, kl Smells of urine. Pain: Complains of pain in left arm and left leg Pain currently is 10 out of 10 on a pain scale. Historical: - Allergies: 22:15 Aspirin; kl 22:15 CRANBERRY; kl 22:15 FISH PRODUCT DERIVATIVES; kl 22:15 GRAPEFRUIT; kl 22:15 mushrooms; kl - Home Meds: 22:15 amlodipine oral [Active]; clopidogrel oral [Active]; kl 22:18 atorvastatin oral [Active]; Carbamazepine Oral [Active]; hydrocodone-acetaminophen kl 7.5-325 mg Oral tablet [Active]; hydroxyzine HCl 25 mg Oral tablet 1 tab every 6 hours [Active]; lisinopril Oral [Active]; Metoprolol Tartrate Oral [Active]; nitroglycerin 0.4 mg SL tablet [Active]; quetiapine oral [Active]; Zofran Oral [Active]; - PMHx: 22:15 Asthma; Cerebrovascular accident; Chronic Chest Pain; COPD; Hypertension; Left arm kl paralysis and left leg weakness from previous CVA; Myocardial infarction; Seizures; Thyroid problem; - Immunization history:: Adult Immunizations up to date. - Infectious Disease History:: Denies. - Social history:: Smoking status: Patient reports the use of cigarette tobacco products, smokes one-half pack cigarettes per day. Screenin:33 [facility] ED Fall Risk Assessment (Adult) History of falling in the last 3 months, jb4 including since admission No falls in past 3 months (0 pts) Confusion or Disorientation No (0 pts) Intoxicated or Sedated No (0 pts) Impaired Gait No (0 pts) Mobility Assist Device Used No (0 pt) Altered Elimination No (0 pt) Score/Fall Risk Level 0 - 2 = Low Risk Oriented to surroundings, Maintained a safe environment. Abuse screen: Denies threats or abuse. Nutritional screening: No deficits noted. Tuberculosis screening: No symptoms or risk factors identified. Assessment: 23:33 Reassessment: Patient appears in no apparent distress at this time. Patient and/or jb4 family updated on plan of care and expected duration. Pain level reassessed. Patient is alert, oriented x 3, equal unlabored respirations, skin warm/dry/pink. Vital Signs: 22:14 BP 135 / 73; Pulse 80; Resp 20; Temp 97(TE); Pulse Ox 100% ; Pain 10/10; kl 22:14 Pain Scale: Adult kl ED Course: 22:03 Patient arrived in ED. ec2 22:11 Michael Nguyen PA is PHCP. cp 22:11 Russell Rodriguez MD is Attending Physician. cp 22:15 Triage completed. kl 23:33 Patient has correct armband on for positive identification. Bed in low position. Call jb4 light in reach. Side rails up X 1. Provided Education on: discharge. 23:33 No provider procedures requiring assistance completed. Patient did not have IV access jb4 during this emergency room visit. Administered Medications: 23:22 Not Given (Other Intervention Used): morphine4 mg IM once jb4 23:23 Not Given (Other Intervention Used): diazepam2 mg IM once jb4 23:26 Drug: [place] PO 10 mg-325 mg 1 tabs PO once Route: PO; jb4 Medication: 23:33 VIS not applicable for this client. jb4 Outcome: 23:28 Discharge ordered by . cp 23:33 Discharged to home ambulatory, jb4 23:33 Condition: stable 23:33 Discharge instructions given to patient, Instructed on discharge instructions, follow up and referral plans. Demonstrated understanding of instructions, follow-up care, 23:35 Patient left the ED. jb4 Signatures: Dhara East, RN RN Michael Epps PA PA cp Bryson, James, RN RN jb4 Russell Rodriguez MD MD ec2
--- NOTE | 2023-10-24 23:28 | EDPHYS ---
Physician Documentation [facility] Name: Geetha Khan Age: 48 yrs Sex: Female : 1975 Arrival Date: 10/24/2023 Time: 22:01 Bed IW1 Private MD: ED Physician Russell Rodriguez HPI: 10/23 23:15 This 48 yrs old Female presents to ER via Wheelchair with complaints of Left Side of cp Body Pain. 23:15 Patient is a 48-year-old female who returns to the emergency department with complaints cp of pain to the left side of her body to include face, shoulder and arm, and left thorax area. Patient was seen in this emergency department 2 days ago after reported fall out of her wheelchair. She had imaging performed that was negative for any acute fractures and patient denies any new trauma. Historical: - Allergies: 22:15 Aspirin; kl 22:15 CRANBERRY; kl 22:15 FISH PRODUCT DERIVATIVES; kl 22:15 GRAPEFRUIT; kl 22:15 mushrooms; kl - Home Meds: 22:15 amlodipine oral [Active]; clopidogrel oral [Active]; kl 22:18 atorvastatin oral [Active]; Carbamazepine Oral [Active]; hydrocodone-acetaminophen kl 7.5-325 mg Oral tablet [Active]; hydroxyzine HCl 25 mg Oral tablet 1 tab every 6 hours [Active]; lisinopril Oral [Active]; Metoprolol Tartrate Oral [Active]; nitroglycerin 0.4 mg SL tablet [Active]; quetiapine oral [Active]; Zofran Oral [Active]; - PMHx: 22:15 Asthma; Cerebrovascular accident; Chronic Chest Pain; COPD; Hypertension; Left arm kl paralysis and left leg weakness from previous CVA; Myocardial infarction; Seizures; Thyroid problem; - Immunization history:: Adult Immunizations up to date. - Infectious Disease History:: Denies. - Social history:: Smoking status: Patient reports the use of cigarette tobacco products, smokes one-half pack cigarettes per day. ROS: 23:20 Constitutional: HX per HPI cp 23:20 Respiratory: Negative for cough, shortness of breath, wheezing, cp 23:20 Abdomen/GI: Negative for vomiting, diarrhea, constipation, 23:20 Neuro: Negative for altered mental status, 23:20 All other systems are negative, Exam: 23:25 Constitutional: The patient appears in no acute distress, alert, awake, non-toxic, well cp developed, well nourished, 23:25 Head/face: Noted is abrasion(s), that are mild, of the above left eye, swelling, that is mild, of the around left eye, 23:25 Eyes: Pupils: equal, round, and reactive to light and accomodation, Conjunctiva: normal, Sclera: no appreciated abnormality, 23:25 ENT: External ear(s): are unremarkable, Nose: is normal, Mouth: Lips: moist, Oral mucosa: moist, Posterior pharynx: is normal, airway is patent, no erythema, no exudate, 23:25 Neck: C-spine: vertebral tenderness, is not appreciated, crepitus, is not appreciated, 23:25 Chest/axilla: Inspection: normal, 23:25 Cardiovascular: Rate: normal, Rhythm: regular, 23:25 Respiratory: the patient does not display signs of respiratory distress, Respirations: normal, no use of accessory muscles, no retractions, labored breathing, is not present, Breath sounds: are clear throughout, no decreased breath sounds, no stridor, no wheezing, 23:25 Abdomen/GI: Inspection: abdomen appears normal, Palpation: abdomen is soft and non-tender, in all quadrants, 23:25 Back: vertebral tenderness, is not appreciated, 23:25 Musculoskeletal/extremity: Extremities: noted in the lateral left shoulder: abrasion, pain, ROM: limited passive range of motion due to pain, in the left shoulder and left arm, 23:25 Neuro: Orientation: to person, place \T\ time. Mentation: is normal, Vital Signs: 22:14 BP 135 / 73; Pulse 80; Resp 20; Temp 97(TE); Pulse Ox 100% ; Pain 10/10; kl 22:14 Pain Scale: Adult kl MDM: 23:28 Patient medically screened. cp 23:28 Data reviewed: vital signs, nurses notes, and as a result, I will discharge patient. cp 23:28 Differential diagnosis: closed head injury, contusion, fracture, multiple trauma. I cp considered the following discharge prescriptions or medication management in the emergency department Medications were administered in the Emergency Department. See MAR. Counseling: I had a detailed discussion with the patient and/or guardian regarding the historical points, exam findings, and any diagnostic results supporting the discharge/admit diagnosis, to return to the emergency department if symptoms worsen or persist or if there are any questions or concerns that arise at home. Response to treatment: the patient's symptoms have mildly improved after treatment. Administered Medications: 23:22 Not Given (Other Intervention Used): morphine4 mg IM once jb4 23:23 Not Given (Other Intervention Used): diazepam2 mg IM once jb4 23:26 Drug: [place] PO 10 mg-325 mg 1 tabs PO once Route: PO; jb4 Disposition Summary: 10/24/23 23:28 Discharge Ordered Notes: Location: Home cp Problem: an ongoing problem cp Symptoms: have improved cp Condition: Stable cp Diagnosis - Acute pain due to trauma cp Followup: cp - With: Private Physician - When: 1 - 2 days - Reason: Recheck today's complaints Discharge Instructions: - Discharge Summary Sheet cp - Pain Medicine Instructions cp Forms: - Medication Reconciliation Form cp - Antibiotic Education cp - Prescription Opioid Use cp - Patient Portal Instructions cp - Leadership Thank You Letter cp Addendum: 10/26/2023 01:19 I was immediately available for consultation during this patient's visit. I did not e c2 personally see the patient or discuss the patient with the SEGUN. . Signatures: Dhara East RN RN Michael Epps PA PA cp Bryson, James, RN RN jb4 Russell Rodriguez MD MD ec2 Corrections: (The following items were deleted from the chart) 10/24 22:11 10/23 23:45 This 48 yrs old Female presents to ER via Wheelchair with complaints of cp Left Side of Body Pain. cp
[2023-10-24 23:40] VITALS: BP 135/73; TEMP 97; O2SAT 100
== END 2023-10-24 23:35 | disposition home or self-care (01) ==
LOC: ER 22:01
DX: G89.11 Acute pain due to trauma (principal); F17.210 Nicotine dependence, cigarettes, uncomplicated
CPT/HCPCS: 99283

== ENCOUNTER 2023-10-25 21:54 | Emergency (ER) | payer OTHER ==
--- NOTE | 2023-10-25 22:21 | RAD REPORT ---
EXAM DESCRIPTION: RAD - Chest Single View - 10/25/2023 10:12 pm CLINICAL HISTORY: fall, rib pain Chest pain. COMPARISON: <Comparisons> FINDINGS: Portable technique limits examination quality. The lungs are grossly clear. The heart is moderately enlarged in size. No displaced fractures. IMPRESSION: No acute intrathoracic process suspected.
[2023-10-25] MEDS ORDERED: KETOROLAC 30 MG/ML INJ ONE (22:23)
[2023-10-25] MEDS ORDERED: hydrOXYzine HCL 25 MG TAB ONE (22:23)
--- NOTE | 2023-10-25 22:39 | ER ---
Nurse's Notes [facility] Name: Geetha Khan Age: 48 yrs Sex: Female : 1975 Arrival Date: 10/25/2023 Time: 21:54 Bed 5 Private MD: Diagnosis: Chest Wall Pain;Anxiety disorder, unspecified Presentation: 10/24 22:06 Chief complaint: Patient states: I STARTED HAVING ANXIETY AGAIN. i FELL TWO DAYS AGO bm8 AND MY LEFT SIDE RIBS HURT. Coronavirus screen: At this time, the client does not indicate any symptoms associated with coronavirus-19. Ebola Screen: Patient negative for fever greater than or equal to 101.5 degrees Fahrenheit, and additional compatible Ebola Virus Disease symptoms Patient denies exposure to infectious person. Patient denies travel to an Ebola-affected area in the 21 days before illness onset. No symptoms or risks identified at this time. Initial Sepsis Screen: Does the patient meet any 2 criteria? No. Patient's initial sepsis screen is negative. Does the patient have a suspected source of infection? No. Patient's initial sepsis screen is negative. Risk Assessment: Do you want to hurt yourself or someone else? Patient reports no desire to harm self or others. Onset of symptoms is unknown. 22:06 Method Of Arrival: EMS: [facility] bm8 22:06 Acuity: CORRINA 3 bm8 Triage Assessment: 22:13 General: Appears in no apparent distress. uncomfortable, Behavior is calm, cooperative, bm8 appropriate for age. Pain: Complains of pain in " WHOLE LEFT SIDE". EENT: No signs and/or symptoms were reported regarding the EENT system. Neuro: Level of Consciousness is awake, alert, obeys commands, LEFT SIDED WEAKNESS FROM PREVIOUS STROKE. Cardiovascular: Reports chest pain, shortness of breath, Capillary refill < 3 seconds Patient's skin is warm and dry. Respiratory: Reports shortness of breath Breath sounds are clear bilaterally. GI: No signs and/or symptoms were reported involving the gastrointestinal system. : No signs and/or symptoms were reported regarding the genitourinary system. Derm: Wound noted Other: ABRASIONS TO FACE. Musculoskeletal: No signs and/or symptoms reported regarding the musculoskeletal system. 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 bm8 Historical: - Allergies: 22:13 Aspirin; bm8 22:13 CRANBERRY; bm8 22:13 FISH PRODUCT DERIVATIVES; bm8 22:13 GRAPEFRUIT; bm8 22:13 mushrooms; bm8 - Home Meds: 22:13 amlodipine oral [Active]; atorvastatin oral [Active]; Carbamazepine Oral [Active]; bm8 clopidogrel oral [Active]; hydrocodone-acetaminophen 7.5-325 mg Oral tablet [Active]; hydroxyzine HCl 25 mg Oral tablet 1 tab every 6 hours [Active]; lisinopril Oral [Active]; Metoprolol Tartrate Oral [Active]; nitroglycerin 0.4 mg SL tablet [Active]; quetiapine oral [Active]; Zofran Oral [Active]; - PMHx: 22:13 Asthma; Cerebrovascular accident; Chronic Chest Pain; COPD; Hypertension; 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 - Infectious Disease History:: Denies. - Social history:: Smoking status: unknown. Screenin:19 [facility] ED Fall Risk Assessment (Adult) History of falling in the last 3 months, bm8 including since admission Yes- fall prone (multiple falls) (3 pts) Confusion or Disorientation No (0 pts) Intoxicated or Sedated No (0 pts) Impaired Gait Yes (1 pt) Mobility Assist Device Used Yes (1 pt) Altered Elimination No (0 pt) Score/Fall Risk Level 3 or more points = High Risk Oriented to surroundings, Maintained a safe environment, Educated pt \\T\\ family on fall prevention, incl call for assistance when getting out of bed, Assessed \\T\\ reinforced patient's understanding of fall precautions, Hourly rounding (assess needs \\T\\ fall precautionary measures) done, Used ambulatory aids as needed (educated on \\T\\ assisted with), Used gait belt as appropriate. Abuse screen: Denies threats or abuse. Nutritional screening: No deficits noted. Tuberculosis screening: No symptoms or risk factors identified. Assessment: 22:19 Reassessment: SEE TRIAGE ASSESSMENT. bm8 22:27 General: Appears in no apparent distress. comfortable, Behavior is calm, cooperative, bm8 appropriate for age. Respiratory: Airway is patent Respiratory effort is even, unlabored, Respiratory pattern is regular, symmetrical, Breath sounds are clear bilaterally. 22:42 Reassessment: Patient appears in no apparent distress at this time. Patient and/or bm8 family updated on plan of care and expected duration. Pain level reassessed. Patient is alert, oriented x 3, equal unlabored respirations, skin warm/dry/pink. Patient states feeling better. Patient states symptoms have improved. Vital Signs: 22:06 BP 120 / 71; Pulse 70; Resp 16; Temp 98.4; Pulse Ox 100% ; Weight 72.57 kg; Height 5 bm8 ft. 2 in. ; Pain 10/10; 22:42 BP 125 / 93; Pulse 71; Resp 17; Temp 98.4; Pulse Ox 100% on R/A; Pain 4/10; bm8 22:06 Body Mass Index 29.26 (72.57 kg, 157.48 cm) bm8 22:06 Pain Scale: Adult bm8 22:42 Pain Scale: Adult bm8 [place] Coma Score: 22:19 Eye Response: spontaneous(4). Motor Response: obeys commands(6). Verbal Response: bm8 oriented(5). Total: 15. 22:42 Eye Response: spontaneous(4). Motor Response: obeys commands(6). Verbal Response: bm8 oriented(5). Total: 15. ED Course: 21:55 Patient arrived in ED. ec2 21:55 Russell Rodriguez MD is Attending Physician. ec2 22:05 Rene Baca, RN is Primary Nurse. bm8 22:07 Triage completed. bm8 22:10 EKG done. af3 22:13 Arm band placed on right wrist. bm8 22:14 CXR XRAY In Process Unspecified. EDMS 22:19 No provider procedures requiring assistance completed. bm8 22:19 Patient has correct armband on for positive identification. Call light in reach. Side bm8 rails up X 1. Client placed on continuous cardiac and pulse oximetry monitoring. NIBP monitoring applied. color television console monitor on. Pulse ox on. NIBP on. Door closed. Noise minimized. Warm blanket given. Verbal reassurance given. Head of bed elevated. 22:42 Patient did not have IV access during this emergency room visit. bm8 22:42 Provided Education on: POST ER CARE. bm8 Administered Medications: 22:26 Drug: Ketorolac IM 30 mg IM once Route: IM; Site: right deltoid; bm8 22:42 Follow up: Response: No adverse reaction bm8 22:27 Drug: hydrOXYzine PO 50 mg PO once Route: PO; bm8 22:42 Follow up: Response: No adverse reaction bm8 Medication: 22:19 VIS not applicable for this client. bm8 Outcome: 22:39 Discharge ordered by . ec2 22:42 Discharged to home via wheelchair, bm8 22:42 Condition: stable 22:42 Discharge instructions given to patient, family, Instructed on discharge instructions, follow up and referral plans. medication usage, safety practices, Demonstrated understanding of instructions, follow-up care, medications, 22:54 Patient left the ED. bm8 Signatures: Dispatcher [employer] EDMS Russell Rodriguez MD MD ec2 Rene Baca RN RN bm8 Gila Dia 3
--- NOTE | 2023-10-25 22:39 | EDPHYS ---
Physician Documentation [facility] Name: Geetha Khan Age: 48 yrs Sex: Female : 1975 Arrival Date: 10/25/2023 Time: 21:54 Bed 5 Private MD: ED Physician Russell Rodriguez HPI: 10/24 21:56 This 48 yrs old Female presents to ER via EMS with complaints of chest pain. ec2 21:56 Patient arrives today for evaluation of left-sided chest pain after recent fall. ec2 Patient complaining of reproducible chest wall pain, minimally improved with Tylenol. Otherwise no new complaints. History of anxiety and states she feels anxious. . 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 Historical: - Allergies: 22:13 Aspirin; bm8 22:13 CRANBERRY; bm8 22:13 FISH PRODUCT DERIVATIVES; bm8 22:13 GRAPEFRUIT; bm8 22:13 mushrooms; bm8 - Home Meds: 22:13 amlodipine oral [Active]; atorvastatin oral [Active]; Carbamazepine Oral [Active]; bm8 clopidogrel oral [Active]; hydrocodone-acetaminophen 7.5-325 mg Oral tablet [Active]; hydroxyzine HCl 25 mg Oral tablet 1 tab every 6 hours [Active]; lisinopril Oral [Active]; Metoprolol Tartrate Oral [Active]; nitroglycerin 0.4 mg SL tablet [Active]; quetiapine oral [Active]; Zofran Oral [Active]; - PMHx: 22:13 Asthma; Cerebrovascular accident; Chronic Chest Pain; COPD; Hypertension; 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 - Infectious Disease History:: Denies. - Social history:: Smoking status: unknown. ROS: 21:56 Constitutional: as per hpi ec2 Exam: 21:56 Constitutional: GEN: NAD Head: atraumatic Eyes: EOMI Ears: External ears are ec2 normal. CV: regular rate LUNGS: no respiratory distress ABD: non-distended SKIN: no evidence of rashes MSK: no evidence of trauma Vital Signs: 22:06 BP 120 / 71; Pulse 70; Resp 16; Temp 98.4; Pulse Ox 100% ; Weight 72.57 kg; Height 5 bm8 ft. 2 in. ; Pain 10/10; 22:42 BP 125 / 93; Pulse 71; Resp 17; Temp 98.4; Pulse Ox 100% on R/A; Pain 4/10; bm8 22:06 Body Mass Index 29.26 (72.57 kg, 157.48 cm) bm8 22:06 Pain Scale: Adult bm8 22:42 Pain Scale: Adult bm8 [place] Coma Score: 22:19 Eye Response: spontaneous(4). Motor Response: obeys commands(6). Verbal Response: bm8 oriented(5). Total: 15. 22:42 Eye Response: spontaneous(4). Motor Response: obeys commands(6). Verbal Response: bm8 oriented(5). Total: 15. MDM: 21:55 Patient medically screened. ec2 21:56 Data reviewed: vital signs. ED course: Patient arrives today for evaluation of ec2 left-sided chest wall pain along with anxiety. Examination remarkable for well-appearing nontoxic and appears otherwise in no acute distress. Will obtain EKG, chest x-ray. Differential includes anxiety, chest wall pain, ACS. 22:10 ED course: EKG and May, shows normal sinusReviewed and interpreted them, rate of 68, no ec2 acute ST segment elevations, intervals nonconcerning, nonspecific T wave abnormalities in the lateral leads noted. PVC noted . 22:11 ED course: When compared to external EKGs, this appears grossly unchanged . ec2 22:16 ED course: Chest x-ray independently reviewed and interpreted by me, shows no bony ec2 fracture. Presentation consistent with anxiety. Will discharge home. Return precautions given.. 10/24 21:55 Order name: CXR XRAY; Complete Time: 22:38 ec2 10/24 21:55 Order name: EKG - Nurse/Tech; Complete Time: 22:10 ec2 Administered Medications: 22:26 Drug: Ketorolac IM 30 mg IM once Route: IM; Site: right deltoid; bm8 22:42 Follow up: Response: No adverse reaction bm8 22:27 Drug: hydrOXYzine PO 50 mg PO once Route: PO; bm8 22:42 Follow up: Response: No adverse reaction bm8 Disposition Summary: 10/25/23 22:39 Discharge Ordered Notes: Location: Home ec2 Condition: Stable ec2 Diagnosis - Chest Wall Pain ec2 - Anxiety disorder, unspecified ec2 Followup: ec2 - With: Private Physician - When: - Reason: Re-evaluation by your physician Discharge Instructions: - Discharge Summary Sheet ec2 - Chest Wall Pain, [id number] ec2 Forms: - Medication Reconciliation Form ec2 - Antibiotic Education ec2 - Prescription Opioid Use ec2 - Patient Portal Instructions ec2 - Leadership Thank You Letter ec2 Signatures: Dispatcher [employer] EDRussell Arreaga MD MD ec2 Rene Baca RN RN bm8 Corrections: (The following items were deleted from the chart) 21:56 21:56 Constitutional: GEN: NAD Head: atraumatic Eyes: EOMI Ears: External ears are ec2 normal. CV: regular rate LUNGS: no respiratory distress ABD: non-distended SKIN: no evidence of rashes MSK: no evidence of trauma NEURO: moves all extremities equally ec2
[2023-10-25 22:59] VITALS: TEMP 98.4; O2SAT 100
[2023-10-25 23:01] VITALS: BP 125/93
== END 2023-10-25 22:54 | disposition home or self-care (01) ==
LOC: ER 21:54
DX: F41.9 Anxiety disorder, unspecified (principal); I10 Essential (primary) hypertension; J44.9 Chronic obstructive pulmonary disease, unspecified; Z86.73 Personal history of transient ischemic attack (TIA), and cerebral infarction without residual deficits
CPT/HCPCS: 71045; 96372; 99285

== ENCOUNTER 2023-10-26 16:52 | Emergency (ER) | payer OTHER ==
--- NOTE | 2023-10-26 18:23 | RAD REPORT ---
EXAM DESCRIPTION: [place] Single View10/26/2023 5:40 pm CLINICAL HISTORY: Chest pain COMPARISON: October 25, 2023 FINDINGS: The lungs appear clear of acute infiltrate. The heart is normal size Old and subacute rib fractures IMPRESSION: No acute abnormalities displayed
--- NOTE | 2023-10-26 18:28 | EDPHYS ---
Physician Documentation [facility] Name: Geetha Khan Age: 48 yrs Sex: Female : 1975 Arrival Date: 10/26/2023 Time: 16:52 Bed DX2 Private MD: ED Physician Michael Grimm HPI: 10/25 17:09 This 48 yrs old Female presents to ER via Unassigned with complaints of Chest Pain. 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 Reports pain is similar to the chest pain she has every day. Reports shortness of breath. Also reports pain to left side of body from a fall that occurred last week.. Historical: - Allergies: 17:23 Aspirin; cm10 17:23 CRANBERRY; cm10 17:23 FISH PRODUCT DERIVATIVES; cm10 17:23 GRAPEFRUIT; cm10 17:23 mushrooms; cm10 - PMHx: 17:23 Asthma; Chronic Chest Pain; Hypertension; Left arm paralysis and left leg weakness from cm10 previous CVA; Cerebrovascular accident; Myocardial infarction; COPD; Seizures; Thyroid problem; - Immunization history:: Adult Immunizations up to date. - Infectious Disease History:: Denies. - Social history:: Smoking status: Patient reports the use of cigarette tobacco products, smokes one-half pack cigarettes per day. ROS: 17:09 Constitutional: As per HPI kb Exam: 17:09 Constitutional: This is a well developed, well nourished patient who is awake, alert, kb and in no acute distress. Head/Face: Normocephalic, atraumatic. ENT: Moist Mucous membranes Cardiovascular: Regular rate Respiratory: Respirations even and unlabored. No increased work of breathing. Talking in full sentences Abdomen/GI: Soft, non-tender. No distention Skin: Warm, dry with normal turgor. Normal color. MS/ Extremity: Pulses equal, no cyanosis. Neurovascular intact. Full, normal range of motion. Neuro: Awake and alert, GCS 15, oriented to person, place, time, and situation. Moves all extremities. Normal gait. 17:12 Respiratory: Breath sounds: decreased breath sounds, that are mild, are heard in the kb left upper lobe and left lower lobe, 17:31 ECG was reviewed by the Attending Physician. kb Vital Signs: 17:22 BP 120 / 80; Pulse 65; Resp 16; Temp 97.5; Pulse Ox 97% on R/A; Weight 68.04 kg; Height cm10 5 ft. 2 in. ; Pain 12/25; 17:22 Body Mass Index 27.44 (68.04 kg, 157.48 cm) cm10 17:22 Pain Scale: Adult cm10 MDM: 17:04 Patient medically screened. kb 17:12 Differential diagnosis: abnormal ekg, acute MS, chronic pain, pneumothorax. Data kb reviewed: vital signs, nurses notes. Historians other than the Patient: EMS: [facility]. 18:27 Counseling: I had a detailed discussion with the patient and/or guardian regarding the kb historical points, exam findings, and any diagnostic results supporting the discharge/admit diagnosis, lab results, radiology results, the need for outpatient follow up, a family practitioner, to return to the emergency department if symptoms worsen or persist or if there are any questions or concerns that arise at home. 10/25 17:07 Order name: Troponin High Sensitivity; Complete Time: 18:09 kb 10/25 17:07 Order name: Chest Single View XRAY; Complete Time: 18:27 kb 10/25 17:07 Order name: EKG; Complete Time: 17:08 kb 10/25 17:07 Order name: EKG - Nurse/Tech; Complete Time: 18:44 kb EC:31 Rate is 59 beats/min. Rhythm is regular. QRS [place] is Normal. ID interval is normal at kb 184 msec. QRS interval is normal at 88 msec. QT interval is normal at 435 msec. Administered Medications: No medications were administered Disposition Summary: 10/26/23 18:28 Discharge Ordered Notes: Location: Home kb Condition: Stable kb Diagnosis - Chest pain, unspecified kb Followup: kb - With: Emergency Department - When: As needed - Reason: Worsening of condition Followup: kb - With: Private Physician - When: 2 - 3 days - Reason: Recheck today's complaints, Continuance of care, Re-evaluation by your physician Discharge Instructions: - Discharge Summary Sheet kb - Nonspecific Chest Pain, Adult, [id number] kb Forms: - Medication Reconciliation Form kb - Antibiotic Education kb - Prescription Opioid Use kb - Patient Portal Instructions kb - Leadership Thank You Letter kb Signatures: Dispatcher [employer] EDKathy Contreras FNP-C FNP-Ckb Kelsey Khan, RN RN cm10
--- NOTE | 2023-10-26 18:28 | ER ---
Nurse's Notes [facility] Name: Geetha Khan Age: 48 yrs Sex: Female : 1975 Arrival Date: 10/26/2023 Time: 16:52 Bed DX2 Private MD: Diagnosis: Chest pain, unspecified Presentation: 10/25 17:22 Chief complaint: Patient states: Chest pain to the left side and pain to the left side cm10 of her body. Pt reports that she has had this pain since she fell. Coronavirus screen: Client denies travel out of the [place] in the last 14 days. At this time, the client does not indicate any symptoms associated with coronavirus-19. Ebola Screen: Patient denies travel to an Ebola-affected area in the 21 days before illness onset. No symptoms or risks identified at this time. Initial Sepsis Screen: Does the patient meet any 2 criteria? No. Patient's initial sepsis screen is negative. Does the patient have a suspected source of infection? No. Patient's initial sepsis screen is negative. Risk Assessment: Do you want to hurt yourself or someone else? Patient reports no desire to harm self or others. Onset of symptoms was October 26, 2023. 17:22 Method Of Arrival: EMS: [facility] 17:22 Acuity: CORRINA 2 cm10 Triage Assessment: 17:24 General: Appears in no apparent distress. comfortable, Behavior is calm, cooperative. cm10 Neuro: No deficits noted. Level of Consciousness is awake, alert, obeys commands, Oriented to person, place, time, situation, Appropriate for age. Respiratory: No deficits noted. Airway is patent Respiratory effort is even, unlabored, Respiratory pattern is regular, symmetrical. Historical: - Allergies: 17:23 Aspirin; cm10 17:23 CRANBERRY; cm10 17:23 FISH PRODUCT DERIVATIVES; cm10 17:23 GRAPEFRUIT; cm10 17:23 mushrooms; cm10 - PMHx: 17:23 Asthma; Chronic Chest Pain; Hypertension; Left arm paralysis and left leg weakness from cm10 previous CVA; Cerebrovascular accident; Myocardial infarction; COPD; Seizures; Thyroid problem; - Immunization history:: Adult Immunizations up to date. - Infectious Disease History:: Denies. - Social history:: Smoking status: Patient reports the use of cigarette tobacco products, smokes one-half pack cigarettes per day. Screenin:36 [facility] ED Fall Risk Assessment (Adult) History of falling in the last 3 months, ha1 including since admission No falls in past 3 months (0 pts) Confusion or Disorientation No (0 pts) Intoxicated or Sedated No (0 pts) Impaired Gait Yes (1 pt) Mobility Assist Device Used Yes (1 pt) Altered Elimination No (0 pt) Score/Fall Risk Level 3 or more points = High Risk Oriented to surroundings, Maintained a safe environment, Educated pt \T\ family on fall prevention, incl call for assistance when getting out of bed, Assessed \T\ reinforced patient's understanding of fall precautions, Hourly rounding (assess needs \T\ fall precautionary measures) done. Abuse screen: Denies threats or abuse. Denies injuries from another. Nutritional screening: No deficits noted. Tuberculosis screening: No symptoms or risk factors identified. Assessment: 18:45 Pain: Complains of pain in chest Pain does not radiate. Pain currently is 4 out of 10 ha1 on a pain scale. Pain began suddenly. Cardiovascular: Rhythm is regular. Vital Signs: 17:22 BP 120 / 80; Pulse 65; Resp 16; Temp 97.5; Pulse Ox 97% on R/A; Weight 68.04 kg; Height cm10 5 ft. 2 in. ; Pain 10/10; 17:22 Body Mass Index 27.44 (68.04 kg, 157.48 cm) cm10 17:22 Pain Scale: Adult cm10 ED Course: 16:55 Patient arrived in ED. ra3 17:04 Kathy Kerns FNP-C is [facility]. kb 17:04 Michael Grimm MD is Attending Physician. kb 17:23 Triage completed. cm10 17:24 Arm band placed on Patient placed in waiting room, in a wheelchair. EKG completed in cm10 triage. Results shown to . 17:32 EKG done, by ED staff, reviewed by Kathy ENCINAS. cm10 17:33 Troponin High Sensitivity Sent. bc6 17:42 Chest Single View XRAY In Process Unspecified. EDMS 18:39 No provider procedures requiring assistance completed. Patient did not have IV access ha1 during this emergency room visit. Patient maintains SpO2 saturation greater than 95% on room air. 18:42 Patient has correct armband on for positive identification. Provided Education on: ha1 follow ups . Administered Medications: No medications were administered Medication: 18:40 VIS not applicable for this client. ha1 Outcome: 18:28 Discharge ordered by MD. lozano 18:45 Discharged to home via wheelchair, ha1 18:45 Condition: stable 18:45 Discharge instructions given to patient, Instructed on discharge instructions, follow up and referral plans. Demonstrated understanding of instructions, follow-up care, 18:52 Patient left the ED. ha1 Signatures: Dispatcher [employer] EDMS Kathy Kerns, LC-C LC-Aydee Rogel, RN RN ha1 Grisel Delvalle6 Kelsey Khan RN RN cm10 Renea Gallardo 3
[2023-10-26 18:58] VITALS: BP 120/80; TEMP 97.5; O2SAT 97
--- NOTE | 2023-10-28 13:50 | EKG ---
Test Date: 2023-10-26 Test Time: 17:30:29 Cardroom Drawing Runner: JEANNA MEASUREMENT RESULTS: Intervals: Rate: 59 AL: 184 QRSD: 88 QT: 440 QTc: 435 [place]: P: 54 AL: 184 QRS: 10 T: 144 INTERPRETIVE STATEMENTS: Sinus bradycardia Left ventricular hypertrophy with repolarization abnormality Abnormal ECG Compared to ECG 10/25/2023 22:08:01 Sinus rhythm no longer present Ventricular premature complex(es) no longer present Electronically Signed On 10-28-23 13:45:29 CDT by Josse Olson
== END 2023-10-26 18:52 | disposition home or self-care (01) ==
LOC: ER 16:52
DX: R07.9 Chest pain, unspecified (principal); J44.9 Chronic obstructive pulmonary disease, unspecified; I10 Essential (primary) hypertension; F17.210 Nicotine dependence, cigarettes, uncomplicated; Z86.73 Personal history of transient ischemic attack (TIA), and cerebral infarction without residual deficits
CPT/HCPCS: 36415; 71045; 84484; 93005; 99284

== ENCOUNTER 2023-10-27 15:22 | Emergency (ER) | payer OTHER ==
[2023-10-27] MEDS ORDERED: ACETAMINOPHEN 325 MG TABLET ONE (16:45)
[2023-10-27] MEDS ORDERED: LEVALBUTEROL 1.25 MG/3 ML NEB ONE (16:45)
[2023-10-27 16:48] LABS: Absolute Eosinophils 0.2 K/uL (0-0.5); Absolute Lymphocytes (CBC) 0.9 K/uL (0.7-4.9); Absolute Monocytes 0.3 K/uL (0.1-1.3); Absolute Neutrophil 3.3 K/uL (1.8-8.0); Basophils % 0.7 % (0-1.3); Eosinophils % 3.9 % (0-4.4); Hematocrit 31.6 % (36.0-45.0); Hemoglobin 10.7 g/dL (12.0-15.0); Lymphocytes % 18.8 % (15.3-44.8); MCH 34.9 pg (27.0-35.0); MCHC 33.8 g/dL (32.0-36.0); MPV 6.2 fL (7.6-11.3); Monocytes % 6.9 % (3.3-12.3); Neutrophils % 69.7 % (41.7-73.7); Platelets 262 thou/uL (152-406); RBC Red Blood Cell Count 3.06 M/uL (3.86-4.86); Red Cell Distribution Width 16.2 % (12.1-15.2)
--- NOTE | 2023-10-27 17:00 | RAD REPORT ---
EXAM DESCRIPTION: RAD - Chest Pa And Lat (2 Views) - 10/27/2023 4:54 pm CLINICAL HISTORY: wheezing;Chest pain COMPARISON: Chest Single View dated 10/26/2023; Chest Single View dated 10/25/2023; Chest Single View d ated 10/13/2023; Chest Single View dated 10/10/2023; Chest Abd Pelvis Wo Con dated 08/21/2023 FINDINGS: Lines: None. Lungs: No evidence of edema or pneumonia. Pleural: No significant pleural effusions or pneumothorax. Cardiac: The heart size is within normal limits. Mediastinum: Within normal limits. Bones: No acute fractures. Remote left-sided anterior rib fractures simulate the presence of pulmonar y nodules . Other: None IMPRESSION: No acute cardiopulmonary disease.
[2023-10-27] MEDS ORDERED: TRAMADOL HCL 50 MG TAB ONE (17:13)
[2023-10-27 17:14] LABS: Anion Gap 8.3 mEq/L (5.0-15.0); Magnesium 1.2 mg/dL (1.6-2.4); Potassium 3.3 mEq/L (3.5-5.1); Troponin High Sensitivity 15.7 pg/mL (<58.9)
[2023-10-27 17:16] LABS: PT Prothrombin Time 11.2 SECONDS (9.4-12.5)
[2023-10-27] MEDS ORDERED: POTASSIUM 25 MEQ EFFERV TAB ONE (17:58)
[2023-10-27] MEDS ORDERED: MAGNESIUM SULFATE 1 gm IVPB 1 GM/100 ML BAG IV ONE (17:58)
[2023-10-27] MEDS ORDERED: NA CHLORIDE 0.9% 1,000 ML ONE (17:58)
--- NOTE | 2023-10-27 18:12 | EDPHYS ---
Physician Documentation [facility] Name: Geetha Khan Age: 48 yrs Sex: Female : 1975 Arrival Date: 10/27/2023 Time: 15:22 Bed 17 Private MD: ED Physician Gene Medrano HPI: 10/26 16:27 This 48 yrs old Female presents to ER via Wheelchair with complaints of Chest Pain, sb4 Shoulder Pain, Breathing Difficulty. 16:27 Patient presents with complaints of chest pain, chest wall pain, shoulder pain, and sb4 shortness of breath. She states that she fell about 1 week ago onto her chest onto the concrete and has been having pain ever since. She did not have negative x-rays initially. Of note, she has been seen in this ED every day for the past 10 days for similar symptoms. Today, she additionally endorses shortness of breath. 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 - Infectious Disease History:: Denies. - Social history:: Smoking status: Patient reports the use of cigarette tobacco products, smokes one-half pack cigarettes per day. ROS: 16:27 Constitutional: Negative for fever, chills, and weight loss, sb4 16:27 Cardiovascular: Positive for chest pain, 16:27 Respiratory: Positive for shortness of breath, 16:27 Abdomen/GI: Positive for 16:27 All other systems are negative, Exam: 16:27 Constitutional: This is a well developed, well nourished patient who is awake, alert, sb4 and in no acute distress. Head/Face: Normocephalic, atraumatic. Eyes: Extra-ocular motions intact. Periorbital areas with no swelling, redness, or edema. ENT: Mucous membranes moist. Cardiovascular: Regular rate and rhythm with a normal S1 and S2. Abdomen/GI: Soft, non-tender, no distension. Skin: Warm, dry with normal turgor. Normal color with no rashes, no lesions, and no evidence of cellulitis. 16:27 Chest/axilla: Inspection: normal, Palpation: tenderness, that is mild, of the anterior aspect of right upper chest and anterior aspect of left upper chest, 16:27 Respiratory: the patient does not display signs of respiratory distress, Respirations: normal, Breath sounds: wheezing: expiratory that is moderate, is heard diffusely, Vital Signs: 16:05 BP 122 / 70; Pulse 51; Resp 18; Temp 98.2(O); Pulse Ox 100% on R/A; Weight 72.57 kg nj1 (R); Height 5 ft. 2 in. ; 17:00 BP 126 / 87; Pulse 57; Resp 16; Pulse Ox 94% on R/A; me1 18:00 BP 144 / 97; Pulse 62; Resp 16; Pulse Ox 100% on R/A; me1 18:45 BP 161 / 87; Pulse 62; Resp 15; Pulse Ox 100% ; me1 16:05 Body Mass Index 29.26 (72.57 kg, 157.48 cm) nj1 MDM: 15:34 Patient medically screened. sb4 18:11 Data reviewed: vital signs, nurses notes, lab test result(s), EKG, radiologic studies, sb4 and as a result, I will discharge patient. Counseling: I had a detailed discussion with the patient and/or guardian regarding the historical points, exam findings, and any diagnostic results supporting the discharge/admit diagnosis, lab results, radiology results, the need for outpatient follow up, for definitive care, to return to the emergency department if symptoms worsen or persist or if there are any questions or concerns that arise at home, smoking cessation. 10/26 16:24 Order name: Basic Metabolic Panel; Complete Time: 17:15 sb4 10/26 16:24 Order name: CBC with Diff; Complete Time: 16:54 sb4 10/26 16:24 Order name: Magnesium; Complete Time: 17:15 sb4 10/26 16:24 Order name: NT PRO-BNP; Complete Time: 17:15 sb4 10/26 16:24 Order name: PT-INR; Complete Time: 17:17 sb4 10/26 16:24 Order name: Troponin HS; Complete Time: 17:15 sb4 08 16:20 Order name: Chest Pa And Lat (2 Views) XRAY; Complete Time: 17:01 sb4 10/26 16:06 Order name: EKG; Complete Time: 16:06 sb4 10/26 16:06 Order name: EKG - Nurse/Tech; Complete Time: 16:57 sb4 10/26 16:24 Order name: IV Saline Lock; Complete Time: 18:38 sb4 10/26 16:24 Order name: O2 Per Protocol; Complete Time: 16:42 sb4 10/26 16:24 Order name: O2 Sat Monitoring; Complete Time: 16:42 sb4 EC:01 Rate is 63 beats/min. Rhythm is regular, Normal Sinus Rhythm. MN interval is normal at sb4 196 msec. QRS interval is normal at 88 msec. QT interval is normal at 434 msec. No Q waves. T waves are Normal. No ST changes noted. Clinical impression: Normal ECG, Abnormal EKG without significant change, and LVH. Interpreted by me. Reviewed by me. Administered Medications: 16:20 CANCELLED (Physician Discretion): [id number] mg PO once sb4 16:57 Drug: Levalbuterol Inhalation 1.25 mg Inhalation once Route: Inhalation; me1 17:03 Follow up: Response: No adverse reaction; Wheezing diminished me1 16:57 Drug: Acetaminophen PO 650 mg PO once Route: PO; me1 19:06 Follow up: Response: No adverse reaction; Pain is unchanged, physician notified me1 17:16 Drug: traMADol PO 50 mg PO once Route: PO; me1 18:54 Follow up: Response: No adverse reaction me1 18:05 Drug: NS 0.9% IV 1000 ml IV at 1 bolus Per protocol; 1000 mL bolus Route: IV; Rate: 1 me1 bolus; Site: right antecubital; 19:06 Follow up: Response: No adverse reaction; IV Status: Completed infusion; IV Intake: me1 1000ml 18:05 Drug: Magnesium Sulfate IVPB 1 grams IVPB once over 1 hrs Route: IVPB; Infused Over: 1 me1 hrs; Site: right antecubital; 19:05 Follow up: Response: No adverse reaction; IV Status: Completed infusion me1 18:05 Drug: Potassium PO Effervescent Tablet 25 mEq PO once; dissolve in 4 ounces of water or me1 juice Route: PO; 18:54 Follow up: Response: No adverse reaction me1 Disposition: 10/27 08:41 Co-signature as Attending Physician, Gene Medrano MD I reviewed the patient's care rn provided by the Advanced Practice Provider and agree with the diagnosis and treatment plan. Disposition Summary: 10/27/23 18:11 Discharge Ordered Notes: Location: Home sb4 Problem: an ongoing problem sb4 Symptoms: have improved sb4 Condition: Stable sb4 Diagnosis - Chest wall pain sb4 - Hypomagnesemia sb4 Followup: sb4 - With: Josse Olson MD - When: 2 - 3 days - Reason: Recheck today's complaints, Re-evaluation by your physician Discharge Instructions: - Discharge Summary Sheet sb4 - Hypomagnesemia sb4 - Chest Wall Pain, [id number] sb4 Forms: - Patient Portal Instructions sb4 - Leadership Thank You Letter sb4 Signatures: Dispatcher [employer] EDMS Gene Medrano MD MD rn Brown, Sophia PAGiseleC PAGiseleC sb4 Ceci Cleaning RN RN nj1 Nohemy Clark RN RN me1 Corrections: (The following items were deleted from the chart) 10/26 16:20 16:20 Acetaminophen PO 1000 mg PO once ordered. sb4 sb4 16:23 16:21 Social history: Smoking status: Patient reports the use of cigarette tobacco nj1 products, smokes one pack cigarettes per day. nj1
--- NOTE | 2023-10-27 18:12 | ER ---
Nurse's Notes [facility] Name: Geetha Khan Age: 48 yrs Sex: Female : 1975 Arrival Date: 10/27/2023 Time: 15:22 Bed 17 Private MD: Diagnosis: Chest wall pain;Hypomagnesemia Presentation: 10/26 16:05 Chief complaint: Patient states: Chest pain since last night, pain to left shoulder and me1 ribs since Saturday when she fell. Took tylenol at 6am with no relief. 16:05 Method Of Arrival: Wheelchair nj 16:05 Coronavirus screen: Vaccine status: Patient reports being unvaccinated. Ebola Screen: nj1 Patient denies travel to an Ebola-affected area in the 21 days before illness onset. Initial Sepsis Screen: Does the patient meet any 2 criteria? No. Patient's initial sepsis screen is negative. Does the patient have a suspected source of infection? No. Patient's initial sepsis screen is negative. Risk Assessment: Do you want to hurt yourself or someone else? Patient reports no desire to harm self or others. Onset of symptoms was October 26, 2023. 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 - Infectious Disease History:: Denies. - Social history:: Smoking status: Patient reports the use of cigarette tobacco products, smokes one-half pack cigarettes per day. Screenin:10 [facility] ED Fall Risk Assessment (Adult) History of falling in the last 3 months, me1 including since admission Yes- single mechanical fall (1 pt) Confusion or Disorientation No (0 pts) Intoxicated or Sedated No (0 pts) Impaired Gait Yes (1 pt) Mobility Assist Device Used Yes (1 pt) Altered Elimination Yes (1 pt) Score/Fall Risk Level 0 - 2 = Low Risk Maintained a safe environment, Provided non-skid footwear, Hourly rounding (assess needs \T\ fall precautionary measures) done. Abuse screen: Denies threats or abuse. Nutritional screening: No deficits noted. Tuberculosis screening: No symptoms or risk factors identified. Assessment: 16:10 General: Appears uncomfortable, well developed, well nourished, Behavior is calm, me1 cooperative, appropriate for age, Reports Chest pain since last night, pain to left shoulder and ribs since Saturday when she fell. Took tylenol at 6am with no relief. Pain: Complains of pain in anterior aspect of left upper chest and anterior aspect of right upper chest Pain radiates to anterior aspect of left shoulder and posterior aspect of left shoulder Pain currently is 10 out of 10 on a pain scale. Quality of pain is described as sharp, Pain began suddenly, last Saturday Is continuous. Neuro: Level of Consciousness is awake, alert, obeys commands, Oriented to person, place, time, situation, Appropriate for age. Cardiovascular: Patient's skin is warm and dry. Respiratory: Airway is patent Respiratory effort is even, unlabored, Respiratory pattern is regular, symmetrical. Respiratory: Reports shortness of breath cough that is. GI: No signs and/or symptoms were reported involving the gastrointestinal system. : No signs and/or symptoms were reported regarding the genitourinary system. EENT: No signs and/or symptoms were reported regarding the EENT system. Derm: Skin is healthy with good turgor, Skin is pink, warm \T\ dry. Musculoskeletal: Range of motion: paralysis to left side from old CVA. 18:15 General: Discharge delayed to finish magnesium and IV fluids. . me1 Vital Signs: 16:05 BP 122 / 70; Pulse 51; Resp 18; Temp 98.2(O); Pulse Ox 100% on R/A; Weight 72.57 kg nj1 (R); Height 5 ft. 2 in. ; 17:00 BP 126 / 87; Pulse 57; Resp 16; Pulse Ox 94% on R/A; me1 18:00 BP 144 / 97; Pulse 62; Resp 16; Pulse Ox 100% on R/A; me1 18:45 BP 161 / 87; Pulse 62; Resp 15; Pulse Ox 100% ; me1 16:05 Body Mass Index 29.26 (72.57 kg, 157.48 cm) nj1 ED Course: 15:25 Patient arrived in ED. mr 15:33 Kalli Bradshaw PA-C is PHCP. sb4 15:33 Gene Medrano MD is Attending Physician. sb4 16:10 Patient has correct armband on for positive identification. Bed in low position. Call me1 light in reach. Side rails up X2. Provided Education on: POC. Verbalized understanding.. Client placed on continuous cardiac and pulse oximetry monitoring. NIBP monitoring applied. eyelet punch operator on. Pulse ox on. NIBP on. Warm blanket given. 16:21 Triage completed. nj1 16:22 Arm band placed on. nj1 16:26 Nohemy Clark, YANETH is Primary Nurse. me1 16:42 Basic Metabolic Panel Sent. me1 16:42 CBC with Diff Sent. me1 16:42 Magnesium Sent. me1 16:42 NT PRO-BNP Sent. me1 16:42 PT-INR Sent. me1 16:42 Troponin HS Sent. me1 16:55 Chest Pa And Lat (2 Views) XRAY In Process Unspecified. EDMS 16:58 No provider procedures requiring assistance completed. Initial lab(s) drawn, by ct, me1 sent to lab. Missed attempt(s): 22 gauge in right antecubital area. 17:41 Missed attempt(s): 22 gauge in right forearm. Bleeding controlled, band aid applied, hb catheter tip intact. 17:55 Inserted saline lock: 20 gauge in right antecubital area, using aseptic technique. nj1 Flushed with 10 mL NS Ultrasound guided. Catheter tip well visualized within vasculature during placement. 18:11 Josse Olson MD is Referral Physician. sb4 19:27 IV discontinued, intact, bleeding controlled, No redness/swelling at site. Pressure me1 dressing applied. 19:28 Patient maintains SpO2 saturation greater than 95% on room air. me1 Administered Medications: 16:20 CANCELLED (Physician Discretion): [id number] mg PO once sb4 16:57 Drug: Levalbuterol Inhalation 1.25 mg Inhalation once Route: Inhalation; me1 17:03 Follow up: Response: No adverse reaction; Wheezing diminished me1 16:57 Drug: Acetaminophen PO 650 mg PO once Route: PO; me1 19:06 Follow up: Response: No adverse reaction; Pain is unchanged, physician notified me1 17:16 Drug: traMADol PO 50 mg PO once Route: PO; me1 18:54 Follow up: Response: No adverse reaction me1 18:05 Drug: NS 0.9% IV 1000 ml IV at 1 bolus Per protocol; 1000 mL bolus Route: IV; Rate: 1 me1 bolus; Site: right antecubital; 19:06 Follow up: Response: No adverse reaction; IV Status: Completed infusion; IV Intake: me1 1000ml 18:05 Drug: Magnesium Sulfate IVPB 1 grams IVPB once over 1 hrs Route: IVPB; Infused Over: 1 me1 hrs; Site: right antecubital; 19:05 Follow up: Response: No adverse reaction; IV Status: Completed infusion me1 18:05 Drug: Potassium PO Effervescent Tablet 25 mEq PO once; dissolve in 4 ounces of water or me1 juice Route: PO; 18:54 Follow up: Response: No adverse reaction me1 Medication: 16:10 VIS not applicable for this client. me1 Intake: 19:06 IV: 1000ml; Total: 1000ml. me1 Outcome: 18:11 Discharge ordered by . sb4 19:27 Discharged to home via wheelchair, with family, ct1 19:27 Condition: stable 19:27 Discharge instructions given to patient, Instructed on discharge instructions, follow up and referral plans. Demonstrated understanding of instructions, follow-up care, 19:28 Patient left the ED. me1 Signatures: Dispatcher [employer] EDAR Clair Marina, Reg Reg mr Kristin Barrera RN RN hb Brown, Sophia, PA-C PA-C sb4 Ceci Cleaning RN RN nj1 Nohemy Clark RN RN me1 Corrections: (The following items were deleted from the chart) 16:23 16:21 Social history: Smoking status: Patient reports the use of cigarette tobacco ks1 products, smokes one pack cigarettes per day. nj1 16:58 16:05 Chief complaint: Patient states: Chest pain since last night, pain to left me1 shoulder and ribs since Saturday when she fell. Took tylenol at 6am with no relief. nj1
[2023-10-27 19:44] VITALS: TEMP 98.2
[2023-10-27 19:48] VITALS: O2SAT 100
[2023-10-27 19:49] VITALS: BP 161/87
--- NOTE | 2023-10-28 13:46 | EKG ---
Test Date: 2023-10-27 Test Time: 16:53:47 Rotary Engine Assembler: MEASUREMENT RESULTS: Intervals: Rate: 63 SD: 196 QRSD: 88 QT: 434 QTc: 444 [place]: P: 42 SD: 196 QRS: 3 T: 140 INTERPRETIVE STATEMENTS: Normal sinus rhythm Left ventricular hypertrophy with repolarization abnormality Abnormal ECG Compared to ECG 10/26/2023 17:30:29 Sinus bradycardia no longer present Electronically Signed On 10-28-23 13:43:51 CDT by Josse Olson
== END 2023-10-27 19:28 | disposition home or self-care (01) ==
LOC: ER 15:22
DX: R07.89 Other chest pain (principal); E83.42 Hypomagnesemia; R06.02 Shortness of breath; J44.9 Chronic obstructive pulmonary disease, unspecified; I10 Essential (primary) hypertension; F17.210 Nicotine dependence, cigarettes, uncomplicated
CPT/HCPCS: 96365; 93005; 85025; 80048; 36415; 83735; 85610; 84484; 83880; 71046; 99285; J3475; J7614; J7030

== ENCOUNTER 2023-10-27 22:10 | Emergency (ER) | payer OTHER ==
[2023-10-27] MEDS ORDERED: IPRATROPIUM BROM 0.5MG/2.5ML ONE (22:25)
[2023-10-27] MEDS ORDERED: ALBUTEROL 2.5 MG/3 ML NEB SOL ONE (22:25)
[2023-10-27] MEDS ORDERED: predniSONE 20 MG TAB ONE (22:26)
--- NOTE | 2023-10-27 23:26 | ER ---
Nurse's Notes [facility] Name: Geetha Khan Age: 48 yrs Sex: Female : 1975 Arrival Date: 10/27/2023 Time: 22:10 Bed 17 Private MD: Diagnosis: Chest pain, unspecified;Wheezing;COPD/ Chronic obstructive pulmonary disease with (acute) exacerbation Presentation: 10/26 22:21 Chief complaint: Patient states: pain on my left shoulder and left side of ribs. ha1 Coronavirus screen: Vaccine status: Patient reports being unvaccinated. Ebola Screen: No symptoms or risks identified at this time. Initial Sepsis Screen: Does the patient meet any 2 criteria? No. Patient's initial sepsis screen is negative. Does the patient have a suspected source of infection? No. Patient's initial sepsis screen is negative. Risk Assessment: Do you want to hurt yourself or someone else? Patient reports no desire to harm self or others. Onset of symptoms was October 27, 2023. 22:21 Method Of Arrival: Wheelchair ha1 22:21 Acuity: CORRINA 4 ha1 Triage Assessment: 22:30 Pain: Complains of pain in left shoulder Pain radiates to chest Pain currently is 10 rg5 out of 10 on a pain scale. Quality of pain is described as aching, Is continuous, Alleviated by medications. 22:30 General: Appears in no apparent distress. uncomfortable, Behavior is calm, cooperative, rg5 appropriate for age. Neuro: Level of Consciousness is alert, Oriented to person, place, time. Cardiovascular: Reports chest pain, Heart tones S1 S2 Capillary refill < 3 seconds Patient's skin is warm and dry. Respiratory: Airway is patent Trachea midline Respiratory effort is even, unlabored, Respiratory pattern is regular, symmetrical. GI: Abdomen is flat. : No signs and/or symptoms were reported regarding the genitourinary system. Derm: Skin is intact, Skin is dry, Skin is normal, Skin temperature is warm. Musculoskeletal: Range of motion: limited in right upper \T\ lower extremities. CHIEF YEOMAN: 22:30 LMP N/A - , Not rg5 Historical: - Allergies: 22:27 Aspirin; ha1 22:27 CRANBERRY; ha1 22:27 FISH PRODUCT DERIVATIVES; ha1 22:27 GRAPEFRUIT; ha1 22:27 mushrooms; ha1 - PMHx: 22:27 Asthma; Cerebrovascular accident; Chronic Chest Pain; COPD; Hypertension; Left arm ha1 paralysis and left leg weakness from previous CVA; Myocardial infarction; Seizures; Thyroid problem; - Immunization history:: Adult Immunizations. - Infectious Disease History:: Denies. - Social history:: Smoking status: Patient reports the use of cigarette tobacco products, smokes one pack cigarettes per day. Screenin:31 [facility] ED Fall Risk Assessment (Adult) History of falling in the last 3 months, me1 including since admission Yes- single mechanical fall (1 pt) Confusion or Disorientation No (0 pts) Intoxicated or Sedated No (0 pts) Impaired Gait Yes (1 pt) Mobility Assist Device Used Yes (1 pt) Altered Elimination Yes (1 pt) Score/Fall Risk Level 0 - 2 = Low Risk Maintained a safe environment, Provided non-skid footwear, Hourly rounding (assess needs \T\ fall precautionary measures) done. Abuse screen: Denies threats or abuse. Nutritional screening: No deficits noted. Tuberculosis screening: No symptoms or risk factors identified. Assessment: 22:31 General: Appears uncomfortable, well developed, well nourished, Behavior is calm, me1 cooperative, appropriate for age, Reports c/o pain to left ribs and left shoulder. Pain: Complains of pain in left lateral anterior chest Pain does not radiate. Pain currently is 10 out of 10 on a pain scale. Quality of pain is described as sharp, Pain began suddenly, one week ago Is continuous. Neuro: Level of Consciousness is awake, alert, obeys commands, Oriented to person, place, time, situation, Appropriate for age. Cardiovascular: Patient's skin is warm and dry. Respiratory: Airway is patent Trachea midline Respiratory effort is even, unlabored, Respiratory pattern is regular, symmetrical. GI: No signs and/or symptoms were reported involving the gastrointestinal system. : No signs and/or symptoms were reported regarding the genitourinary system. EENT: No signs and/or symptoms were reported regarding the EENT system. Derm: Skin is healthy with good turgor, Skin is pink, warm \T\ dry. Musculoskeletal: left sided weakness from old CVA. 23:37 Reassessment: Patient and/or family updated on plan of care and expected duration. Pain ha1 level reassessed. Patient is alert, oriented x 3, equal unlabored respirations, skin warm/dry/pink. Patient states feeling better. Patient states symptoms have improved. Vital Signs: 22:21 BP 137 / 67; Pulse 80; Resp 17 S; Temp 97.9; Pulse Ox 98% on R/A; ha1 22:30 BP 122 / 64; Pulse 62; Resp 18; Temp 98.3; Pulse Ox 100% on R/A; Pain 10/10; rg5 23:37 BP 117 / 68; Pulse 67; Resp 17 S; Pulse Ox 100% on R/A; ha1 22:30 Pain Scale: Adult rg5 ED Course: 22:11 Patient arrived in ED. jj6 22:15 Kishor Hoyos DO is Attending Physician. ms3 22:22 Nohemy Clark, RN is Primary Nurse. me1 22:27 Triage completed. ha1 22:30 Arm band placed on. rg5 22:31 Patient has correct armband on for positive identification. Bed in low position. Call me1 light in reach. Side rails up X2. Provided Education on: POC. Verbalized understanding. . Client placed on continuous cardiac and pulse oximetry monitoring. NIBP monitoring applied. Pulse ox on. NIBP on. 22:31 No provider procedures requiring assistance completed. Patient did not have IV access me1 during this emergency room visit. 22:31 Patient maintains SpO2 saturation greater than 95% on room air. me1 22:31 Initial Neb Treatment Given as ordered Patient tolerated procedure well without adverse me1 effect. 22:44 Initial lab(s) drawn, by me, sent to lab. [facility] 23:00 EKG completed in triage. Results shown to MD. allen Administered Medications: 22:29 Drug: DuoNeb Nebulize (2.5 mg - 0.5 mg) 3 ml Nebulizer once Route: Nebulizer; me1 23:38 Follow up: Response: No adverse reaction; Marked relief of symptoms ha1 22:30 Drug: predniSONE PO 60 mg PO once Route: PO; me1 23:38 Follow up: Response: No adverse reaction; Marked relief of symptoms ha1 Medication: 22:31 VIS not applicable for this client. me1 Outcome: 23:25 Discharge ordered by ms3 23:38 Discharged to home via wheelchair, with family, ha1 23:38 Condition: stable 23:38 Discharge instructions given to patient, family, Instructed on discharge instructions, follow up and referral plans. medication usage, Demonstrated understanding of instructions, follow-up care, medications, Prescriptions given X 2, 23:39 Patient left the ED. ha1 Signatures: Kishor Hoyos DO DO ms3 Bia Garcia jj6 Aydee Ulrich RN RN ha1 Nohemy Clark RN RN in1 Phuong Day [facility] Hakan Crowley RN RN rg5 Corrections: (The following items were deleted from the chart) 22:34 22:31 Patient maintains SpO2 saturation greater than 95% on room air. me1 me1
--- NOTE | 2023-10-27 23:26 | EDPHYS ---
Physician Documentation [facility] Name: Geetha Khan Age: 48 yrs Sex: Female : 1975 Arrival Date: 10/27/2023 Time: 22:10 Bed 17 Private MD: ED Physician Kishor Hoyos HPI: 10/26 22:22 This 48 yrs old Female presents to ER via Unassigned with complaints of Chest Pain. ms3 22:22 48-year-old female presents to the emergency department for second time today ms3 complaining of left shoulder and left-sided chest pain. She notes she fell onto concrete 1 week ago. Patient states she was seen in the emergency department today for same symptoms. . STABLE HELPER: 22:30 LMP N/A - , Not rg5 Historical: - Allergies: 22:27 Aspirin; ha1 22:27 CRANBERRY; ha1 22:27 FISH PRODUCT DERIVATIVES; ha1 22:27 GRAPEFRUIT; ha1 22:27 mushrooms; ha1 - PMHx: 22:27 Asthma; Cerebrovascular accident; Chronic Chest Pain; COPD; Hypertension; Left arm ha1 paralysis and left leg weakness from previous CVA; Myocardial infarction; Seizures; Thyroid problem; - Immunization history:: Adult Immunizations. - Infectious Disease History:: Denies. - Social history:: Smoking status: Patient reports the use of cigarette tobacco products, smokes one pack cigarettes per day. ROS: 22:22 Constitutional: Negative for fever, and chills. Neck: Negative for injury, pain, and ms3 swelling, 22:22 MS/Extremity: Negative for injury and deformity, Skin: Negative for injury, rash, and discoloration, 22:22 Cardiovascular: Positive for chest pain, 22:22 Respiratory: Positive for shortness of breath, Exam: 22:32 Constitutional: This is a well developed, well nourished patient who is awake, alert, ms3 and in no acute distress. Chest/axilla: Normal chest wall appearance and motion. Nontender with no deformity. Cardiovascular: Regular rate and rhythm with a normal S1 and S2. No gallops, murmurs, or rubs. Normal PMI, no JVD. No pulse deficits. 22:32 Skin: Warm, dry with normal turgor. Normal color with no rashes, no lesions, and no evidence of cellulitis. 22:32 Respiratory: the patient does not display signs of respiratory distress, Respirations: normal, Breath sounds: wheezing: expiratory 23:27 ECG was reviewed by the Attending Physician. ms3 Vital Signs: 22:21 BP 137 / 67; Pulse 80; Resp 17 S; Temp 97.9; Pulse Ox 98% on R/A; ha1 22:30 BP 122 / 64; Pulse 62; Resp 18; Temp 98.3; Pulse Ox 100% on R/A; Pain 10/10; rg5 23:37 BP 117 / 68; Pulse 67; Resp 17 S; Pulse Ox 100% on R/A; ha1 22:30 Pain Scale: Adult rg5 MDM: 22:32 Differential diagnosis: COPD exacerbation versus contusion versus musculoskeletal pain ms3 versus MD. ED course: Labs from previous visit today reviewed revealing creatinine of 1.45, GFR 45, hemoglobin 10.7, magnesium 1.2, BNP 490, troponin 15.7. Chest x-ray was negative. 22:33 Patient medically screened. ms3 10/27 00:12 HEART Score:. Data reviewed: vital signs, nurses notes, and as a result, I will ms3 discharge patient. I considered the following discharge prescriptions or medication management in the emergency department Medications were administered in the Emergency Department. See MAR. Care significantly affected by the following chronic conditions: Hypertension, Chronic Obstructive Pulmonary Disease. Counseling: I had a detailed discussion with the patient and/or guardian regarding the historical points, exam findings, and any diagnostic results supporting the discharge/admit diagnosis, lab results, the need for outpatient follow up, to return to the emergency department if symptoms worsen or persist or if there are any questions or concerns that arise at home. Special discussion: Based on the patient's history, exam, and Dx evaluation, there is no indication for emergent intervention or inpatient Tx. It is understood by the patient/guardian that if the Sx's persist or worsen they need to return immediately for re-evaluation. ED course: Patient wanting to be discharged from the emergency department. Discussed labs and EKG with patient. Patient given prescription for albuterol and prednisone. Patient understands agrees with plan to follow-up with primary care physician in 2 to 3 days. All questions were answered. Return precautions discussed include worsening symptoms, or any other concerns. On reevaluation patient's respiratory status improved, wheezing resolved, patient speaking full sentences, ambulatory in emergency department. 10/26 22:31 Order name: Troponin High Sensitivity; Complete Time: 23:22 ms3 10/26 22:31 Order name: EKG; Complete Time: 22:32 ms3 10/26 22:31 Order name: EKG - Nurse/Tech; Complete Time: 22:58 ms3 EC/11 23:27 Rate is 63 beats/min. Rhythm is regular. Left axis deviation noted. ND interval is ms3 normal. QRS interval is normal. Clinical impression: Abnormal EKG without significant change. No change from previous ECG on October 27, 2023. Interpreted by me. Reviewed by me. Administered Medications: 22:29 Drug: DuoNeb Nebulize (2.5 mg - 0.5 mg) 3 ml Nebulizer once Route: Nebulizer; [facility] [place] 23:38 Follow up: Response: No adverse reaction; Marked relief of symptoms ha1 22:30 Drug: predniSONE PO 60 mg PO once Route: PO; [facility] [place] 23:38 Follow up: Response: No adverse reaction; Marked relief of symptoms ha1 Disposition Summary: 10/27/23 23:25 Discharge Ordered Notes: Location: Home ms3 Condition: Stable ms3 Diagnosis - Chest pain, unspecified ms3 - Wheezing ms3 - COPD/ Chronic obstructive pulmonary disease with (acute) exacerbation ms3 Followup: ms3 - With: Private Physician - When: 2 - 3 days - Reason: Recheck today's complaints Discharge Instructions: - Discharge Summary Sheet ms3 - Nonspecific Chest Pain, Adult ms3 - Chronic Obstructive Pulmonary Disease ms3 Forms: - Medication Reconciliation Form ms3 - Antibiotic Education ms3 - Prescription Opioid Use ms3 - Patient Portal Instructions ms3 - Leadership Thank You Letter ms3 Prescriptions: - albuterol sulfate 90 mcg/actuation Inhalation HFA Aerosol Inhaler - inhale 2 puff INHALATION route every 2 to 4 hours as needed for bronchospasm; ms3 administer via ventilator; 1 unit; Refills: 0, Product Selection Permitted - Prednisone 20 mg Oral Tablet - take 2 tablets ORAL route once daily for 5 days; 10 tablet; Refills: 0, Product ms3 Selection Permitted Signatures: Dispatcher [employer] Kishor Haley DO DO ms3 Aydee Ulrich RN RN [facility] Nohemy Clark RN RN nm1
[2023-10-27 23:56] VITALS: TEMP 98.3; O2SAT 100
[2023-10-27 23:57] VITALS: BP 117/68
--- NOTE | 2023-10-28 13:45 | EKG ---
Test Date: 2023-10-27 Test Time: 22:53:24 Crime Scene Evidence Technician: HEATHER MEASUREMENT RESULTS: Intervals: Rate: 63 IL: 198 QRSD: 90 QT: 444 QTc: 454 [place]: P: 34 IL: 198 QRS: 4 T: 142 INTERPRETIVE STATEMENTS: Normal sinus rhythm Left ventricular hypertrophy with repolarization abnormality Abnormal ECG Compared to ECG 10/27/2023 16:53:47 No significant changes Electronically Signed On 10-28-23 13:43:29 CDT by Josse Olson
== END 2023-10-27 23:39 | disposition home or self-care (01) ==
LOC: ER 22:10
DX: J44.1 Chronic obstructive pulmonary disease with (acute) exacerbation (principal); R06.2 Wheezing; F17.210 Nicotine dependence, cigarettes, uncomplicated; Z86.73 Personal history of transient ischemic attack (TIA), and cerebral infarction without residual deficits
CPT/HCPCS: 93005; 36415; 84484; 94640; 99284; J7512; J7613; J7644

== ENCOUNTER 2023-10-28 21:21 | Emergency (ER) | payer OTHER ==
--- NOTE | 2023-10-28 22:37 | ER ---
Nurse's Notes [facility] Name: Geetha Khan Age: 48 yrs Sex: Female : 1975 Arrival Date: 10/28/2023 Time: 21:21 Bed DIS2 Private MD: Diagnosis: Left shoulder and chest wall pain s/p fall Presentation: 10/27 22:31 Chief complaint: Patient states: Left rib pain and shoulder pain onset last week s/p cm10 falling out of wheelchair. Coronavirus screen: Client denies travel out of the [place] in the last 14 days. At this time, the client does not indicate any symptoms associated with coronavirus-19. Ebola Screen: Patient denies travel to an Ebola-affected area in the 21 days before illness onset. No symptoms or risks identified at this time. Initial Sepsis Screen: Does the patient meet any 2 criteria? No. Patient's initial sepsis screen is negative. Does the patient have a suspected source of infection? No. Patient's initial sepsis screen is negative. Risk Assessment: Do you want to hurt yourself or someone else? Patient reports no desire to harm self or others. Onset of symptoms was October 28, 2023. 22:31 Method Of Arrival: EMS: [facility] cm10 22:31 Acuity: CORRINA 3 cm10 Triage Assessment: 22:34 General: Appears in no apparent distress. comfortable, Behavior is calm, cooperative. cm10 Neuro: No deficits noted. Level of Consciousness is awake, alert, obeys commands, Oriented to person, place, time, situation, Appropriate for age. Respiratory: No deficits noted. Airway is patent Respiratory effort is even, unlabored, Respiratory pattern is regular, symmetrical. 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 - Infectious Disease History:: Denies. - Social history:: Smoking status: Patient reports the use of cigarette tobacco products, denies chronic smoking, but will smoke occasionally. Screenin:56 [facility] ED Fall Risk Assessment (Adult) History of falling in the last 3 months, vc1 including since admission No falls in past 3 months (0 pts) Confusion or Disorientation No (0 pts) Intoxicated or Sedated No (0 pts) Impaired Gait No (0 pts) Mobility Assist Device Used No (0 pt) Altered Elimination No (0 pt) Score/Fall Risk Level 0 - 2 = Low Risk Oriented to surroundings, Maintained a safe environment, Educated pt \T\ family on fall prevention, incl call for assistance when getting out of bed. Abuse screen: Denies threats or abuse. Nutritional screening: No deficits noted. Tuberculosis screening: No symptoms or risk factors identified. Assessment: 21:21 General: Pt instructed on arrival that she is not to leave the lobby in out wheelchair. vc1 last time patient was here she wheeled herself outside and off of the sidewalk in the wheelchair and almost fell out of the wheelchair. Pt is a high fall risk and here for shoulder pain from a recent fall.. 23:03 General: Pt found outside attempting to smoke a cigarette. Pt reminded she is not to go vc1 outside in our wheelchair. . Vital Signs: 22:31 BP 130 / 73; Pulse 77; Resp 16; Temp 98.1; Pulse Ox 98% on R/A; Weight 74.84 kg; Height cm10 5 ft. 2 in. ; Pain 10/10; 22:31 Body Mass Index 30.18 (74.84 kg, 157.48 cm) cm10 22:31 Pain Scale: Adult cm10 ED Course: 21:30 Patient arrived in ED. gm2 21:34 Kalli Bradshaw PA-C is PHCP. sb4 21:34 Uriel Cannon MD is Attending Physician. sb4 22:33 Triage completed. cm10 22:34 Arm band placed on Patient placed in waiting room. cm10 22:56 No provider procedures requiring assistance completed. Patient did not have IV access vc1 during this emergency room visit. 22:57 Patient has correct armband on for positive identification. Bed in low position. Call vc1 light in reach. Provided Education on: fall safety. Administered Medications: 22:53 Drug: Ondansetron PO 4 mg PO once Route: PO; vc1 22:54 Follow up: Response: Medication administered at discharge. vc1 22:54 Drug: traMADol PO 100 mg PO once Route: PO; vc1 22:54 Follow up: Response: Medication administered at discharge. vc1 Outcome: 22:37 Discharge ordered by . sb4 22:56 Discharged to home ambulatory, vc1 22:56 Condition: good 22:56 Discharge instructions given to patient, Instructed on discharge instructions, follow up and referral plans. Demonstrated understanding of instructions, follow-up care, 23:01 Patient left the ED. vc1 Signatures: Syeda Bruce, RN RN vc1 Kalli Bradshaw, PA-C PA-C марина4 Kelsey Khan RN RN cm10 Rossi Muhammad 2
--- NOTE | 2023-10-28 22:38 | EDPHYS ---
Physician Documentation [facility] Name: Geetha Khan Age: 48 yrs Sex: Female : 1975 Arrival Date: 10/28/2023 Time: 21:21 Bed DIS2 Private MD: ED Physician Uriel Cannon HPI: 10/27 23:08 This 48 yrs old Female presents to ER via EMS with complaints of Flank Pain, Shoulder sb4 Pain. 23:08 pain in left shoulder and left chest wall since mechanical fall 1 week ago. has had sb4 multiple negative xrays. taking tylenol at home without any relief. 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 - Infectious Disease History:: Denies. - Social history:: Smoking status: Patient reports the use of cigarette tobacco products, denies chronic smoking, but will smoke occasionally. ROS: 23:08 Constitutional: Negative for fever, chills, and weight loss, sb4 23:08 MS/extremity: Positive for per HPI, 23:08 All other systems are negative, Exam: 23:08 Constitutional: This is a well developed, well nourished patient who is awake, alert, sb4 and in no acute distress. Head/Face: Normocephalic, atraumatic. Eyes: Extra-ocular motions intact. Periorbital areas with no swelling, redness, or edema. ENT: Mucous membranes moist. Skin: Warm, dry with normal turgor. Normal color with no rashes, no lesions, and no evidence of cellulitis. MS/ Extremity: Pulses equal, no cyanosis. Neurovascular intact. Full, normal range of motion. Vital Signs: 22:31 BP 130 / 73; Pulse 77; Resp 16; Temp 98.1; Pulse Ox 98% on R/A; Weight 74.84 kg; Height cm10 5 ft. 2 in. ; Pain 10/10; 22:31 Body Mass Index 30.18 (74.84 kg, 157.48 cm) cm10 22:31 Pain Scale: Adult cm10 MDM: 21:36 Patient medically screened. sb4 23:09 Data reviewed: vital signs, nurses notes, EMS record, and as a result, I will discharge sb4 patient. Counseling: I had a detailed discussion with the patient and/or guardian regarding the historical points, exam findings, and any diagnostic results supporting the discharge/admit diagnosis, the need for outpatient follow up, for definitive care, to return to the emergency department if symptoms worsen or persist or if there are any questions or concerns that arise at home. Administered Medications: 22:53 Drug: Ondansetron PO 4 mg PO once Route: PO; vc1 22:54 Follow up: Response: Medication administered at discharge. vc1 22:54 Drug: traMADol PO 100 mg PO once Route: PO; vc1 22:54 Follow up: Response: Medication administered at discharge. vc1 Disposition: 10/28 19:51 Co-signature as Attending Physician, Uriel Cannon MD I agree with the assessment sp4 and plan of care. I reviewed the patient's care provided by Advanced Practice Provider \T\ agree w/ the diagnosis \T\ care plan. I personally saw the pt \T\ performed a substantive portion of the visit, incldng all aspects of the (History/Exam/Medical Decision Making). Disposition Summary: 10/28/23 22:37 Discharge Ordered Notes: Location: Home sb4 Problem: an ongoing problem sb4 Symptoms: have improved sb4 Condition: Stable sb4 Diagnosis - Left shoulder and chest wall pain s/p fall sb4 Followup: sb4 - With: Private Physician - When: As needed - Reason: Recheck today's complaints, Re-evaluation by your physician Discharge Instructions: - Discharge Summary Sheet sb4 - Musculoskeletal Pain sb4 Forms: - Patient Portal Instructions sb4 - Leadership Thank You Letter sb4 Signatures: Syeda Bruce RN RN vc1 Kalli Bradshaw PA-C PA-C sb4 Uriel Cannon MD MD sp4 Kelsey Khan RN RN cm10
[2023-10-28] MEDS ORDERED: TRAMADOL HCL 50 MG TAB ONE (22:47)
[2023-10-28] MEDS ORDERED: ONDANSETRON 4 MG (ODT) TAB ONE (22:47)
[2023-10-28 23:09] VITALS: BP 130/73; TEMP 98.1; O2SAT 98
--- NOTE | 2023-10-30 16:33 | EKG ---
Test Date: 2023-10-25 Test Time: 22:08:01 Sand Screener: ESA MEASUREMENT RESULTS: Intervals: Rate: 68 VA: 190 QRSD: 86 QT: 414 QTc: 440 [place]: P: 38 VA: 190 QRS: -6 T: 134 INTERPRETIVE STATEMENTS: Sinus rhythm with occasional premature ventricular complexes Left ventricular hypertrophy with repolarization abnormality Abnormal ECG Compared to ECG 10/23/2023 21:05:04 No significant changes Electronically Signed On 10-30-23 16:30:55 CDT by Josse Olson
== END 2023-10-28 23:01 | disposition home or self-care (01) ==
LOC: ER 21:21
DX: M25.512 Pain in left shoulder (principal); R07.89 Other chest pain; W18.30XA Fall on same level, unspecified, initial encounter
CPT/HCPCS: 93005; 99283; Q0162

== ENCOUNTER 2023-10-29 22:32 | Emergency (ER) | payer OTHER ==
--- NOTE | 2023-10-29 22:36 | EDPHYS ---
Physician Documentation [facility] Name: Geetha Khan Age: 48 yrs Sex: Female : 1975 Arrival Date: 10/29/2023 Time: 22:32 Bed 15 Private MD: ED Physician Uriel Cannon HPI: 10/28 22:41 This 48 yrs old Female presents to ER via EMS with complaints of Rib Pain. sb4 22:41 left chest wall/breast pain x 10 days after mechanical fall. has been seen here for sb4 this same issue multiple times over the past few days. saw her PCP today who prescribed her pain medication but the pharmacy was closed by the time she went to fill it. 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 - Infectious Disease History:: Denies. - Social history:: Smoking status: Patient reports the use of cigarette tobacco products, smokes one-half pack cigarettes per day. ROS: 22:41 Constitutional: Negative for fever, chills, and weight loss, sb4 22:41 MS/extremity: Positive for pain, 22:41 All other systems are negative, Exam: 22:41 Constitutional: This is a well developed, well nourished patient who is awake, alert, sb4 and in no acute distress. Head/Face: Normocephalic, atraumatic. Eyes: Extra-ocular motions intact. Periorbital areas with no swelling, redness, or edema. ENT: Mucous membranes moist. Skin: Warm, dry with normal turgor. Normal color with no rashes, no lesions, and no evidence of cellulitis. 22:41 Chest/axilla: Inspection: normal, Palpation: tenderness, that is mild, of the anterior aspect of left upper chest and left breast, that totally reproduces the patient's complaints, Vital Signs: 22:37 BP 121 / 86; Pulse 68; Resp 16; Temp 98.4; Pulse Ox 100% ; Weight 74.84 kg; Height 5 cm10 ft. 2 in. ; Pain 10/10; 22:45 BP 144 / 110; Pulse 70; Resp 18; Pulse Ox 100% on R/A; Pain 10/10; kd4 22:55 BP 120 / 72; Pain 0/10; kd4 22:37 Body Mass Index 30.18 (74.84 kg, 157.48 cm) cm10 22:37 Pain Scale: Adult cm10 22:45 Pain Scale: Adult kd4 22:55 Pain Scale: Adult kd4 MDM: 22:34 Patient medically screened. sb4 22:41 Data reviewed: vital signs, nurses notes, and as a result, I will discharge patient. sb4 Counseling: I had a detailed discussion with the patient and/or guardian regarding the historical points, exam findings, and any diagnostic results supporting the discharge/admit diagnosis, the need for outpatient follow up, to return to the emergency department if symptoms worsen or persist or if there are any questions or concerns that arise at home. Administered Medications: 22:54 Drug: traMADol PO 100 mg PO once Route: PO; kd4 23:30 Follow up: Response: No adverse reaction kd4 22:54 Drug: Ondansetron PO 4 mg PO once Route: PO; kd4 23:30 Follow up: Response: No adverse reaction kd4 Disposition Summary: 10/29/23 22:36 Discharge Ordered Notes: Location: Home sb4 Problem: an ongoing problem sb4 Symptoms: have improved sb4 Condition: Stable sb4 Diagnosis - Chest wall pain, left sb4 Followup: sb4 - With: Private Physician - When: As needed - Reason: Recheck today's complaints, Re-evaluation by your physician Discharge Instructions: - Discharge Summary Sheet sb4 - Musculoskeletal Pain sb4 Forms: - Patient Portal Instructions sb4 - Leadership Thank You Letter sb4 Signatures: Kalli Bradshaw PA-C PA-C sb4 Kelsey Khan, RN RN cm10 Jolly Mcintyre RN RN kd4
[2023-10-29] MEDS ORDERED: ONDANSETRON 4 MG (ODT) TAB ONE (22:50)
[2023-10-29] MEDS ORDERED: TRAMADOL HCL 50 MG TAB ONE (22:51)
--- NOTE | 2023-10-29 23:32 | ER ---
Nurse's Notes [facility] Name: Geetha Khan Age: 48 yrs Sex: Female : 1975 Arrival Date: 10/29/2023 Time: 22:32 Bed 15 Private MD: Diagnosis: Chest wall pain, left Presentation: 10/28 22:37 Chief complaint: Patient states: left sided rib and breast pain. Pt states that she has cm10 had this pain since her fall. Coronavirus screen: Client denies travel out of the [place] in the last 14 days. At this time, the client does not indicate any symptoms associated with coronavirus-19. Ebola Screen: Patient denies travel to an Ebola-affected area in the 21 days before illness onset. No symptoms or risks identified at this time. Initial Sepsis Screen: Does the patient meet any 2 criteria? No. Patient's initial sepsis screen is negative. Does the patient have a suspected source of infection? No. Patient's initial sepsis screen is negative. Risk Assessment: Do you want to hurt yourself or someone else? Patient reports no desire to harm self or others. Onset of symptoms was October 29, 2023. 22:37 Method Of Arrival: EMS: [facility] cm10 22:37 Acuity: CORRINA 3 cm10 Triage Assessment: 22:39 General: Appears in no apparent distress. comfortable, Behavior is calm, cooperative. cm10 Pain: Complains of pain in left lateral posterior chest and left lateral anterior chest Pain currently is 10 out of 10 on a pain scale. Quality of pain is described as sharp. Neuro: No deficits noted. Level of Consciousness is awake, alert, obeys commands, Oriented to person, place, time, situation, Appropriate for age. Respiratory: No deficits noted. Airway is patent Respiratory effort is even, unlabored, Respiratory pattern is regular, symmetrical. 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 - Infectious Disease History:: Denies. - Social history:: Smoking status: Patient reports the use of cigarette tobacco products, smokes one-half pack cigarettes per day. Screenin:46 [facility] ED Fall Risk Assessment (Adult) History of falling in the last 3 months, kd4 including since admission Yes- fall prone (multiple falls) (3 pts) Confusion or Disorientation No (0 pts) Intoxicated or Sedated No (0 pts) Impaired Gait Yes (1 pt) Mobility Assist Device Used Yes (1 pt) Altered Elimination Yes (1 pt) Score/Fall Risk Level 3 or more points = High Risk Oriented to surroundings, Maintained a safe environment, Educated pt \T\ family on fall prevention, incl call for assistance when getting out of bed, Assessed \T\ reinforced patient's understanding of fall precautions, Hourly rounding (assess needs \T\ fall precautionary measures) done. Abuse screen: Denies threats or abuse. Nutritional screening: No deficits noted. Tuberculosis screening: No symptoms or risk factors identified. Assessment: 22:43 General: Appears in no apparent distress. Behavior is calm, cooperative. Pain: kd4 Complains of pain in left breast left shoulder s/p fall last week Pain currently is 10 out of 10 on a pain scale. Vital Signs: 22:37 BP 121 / 86; Pulse 68; Resp 16; Temp 98.4; Pulse Ox 100% ; Weight 74.84 kg; Height 5 cm10 ft. 2 in. ; Pain 10/10; 22:45 BP 144 / 110; Pulse 70; Resp 18; Pulse Ox 100% on R/A; Pain 10/10; kd4 22:55 BP 120 / 72; Pain 0/10; kd4 22:37 Body Mass Index 30.18 (74.84 kg, 157.48 cm) cm10 22:37 Pain Scale: Adult cm10 22:45 Pain Scale: Adult kd4 22:55 Pain Scale: Adult kd4 ED Course: 22:34 Patient arrived in ED. sb4 22:34 Kalli Bradshaw PA-C is PHCP. sb4 22:34 Uriel Cannon MD is Attending Physician. sb4 22:38 Triage completed. cm10 22:39 Arm band placed on Patient placed in an exam room, on a stretcher. cm10 22:42 Dahissa, Karim, RN is Primary Nurse. kd4 23:28 No provider procedures requiring assistance completed. Patient did not have IV access kd4 during this emergency room visit. 23:29 Patient has correct armband on for positive identification. Provided Education on: kd4 DISCHARGE. Administered Medications: 22:54 Drug: traMADol PO 100 mg PO once Route: PO; kd4 23:30 Follow up: Response: No adverse reaction kd4 22:54 Drug: Ondansetron PO 4 mg PO once Route: PO; kd4 23:30 Follow up: Response: No adverse reaction kd4 Outcome: 22:36 Discharge ordered by . sb4 23:28 Discharged to home via wheelchair, with family, kd4 23:28 Condition: good 23:28 Discharge instructions given to patient, 23:31 Patient left the ED. kd4 Signatures: Kalli Bradshaw PA-C PA-C sb4 Kelsey Khan, RN RN cm10 Jolly Mcintyre, YANETH RN kd4
[2023-10-29 23:37] VITALS: TEMP 98.4; O2SAT 100
[2023-10-29 23:40] VITALS: BP 120/72
== END 2023-10-29 23:31 | disposition home or self-care (01) ==
LOC: ER 22:32
DX: R07.89 Other chest pain (principal); I10 Essential (primary) hypertension; J44.9 Chronic obstructive pulmonary disease, unspecified; I25.2 Old myocardial infarction; F17.210 Nicotine dependence, cigarettes, uncomplicated; Z86.73 Personal history of transient ischemic attack (TIA), and cerebral infarction without residual deficits
CPT/HCPCS: Q0162

== ENCOUNTER 2023-10-31 20:18 | Emergency (ER) | payer OTHER ==
[2023-10-31] MEDS ORDERED: IBUPROFEN 400 MG TAB ONE (21:08)
[2023-10-31] MEDS ORDERED: DIAZEPAM 5 MG TABLET ONE (21:09)
[2023-10-31] MEDS ORDERED: HYDROCODONE/APAP 5/325 MG TAB ONE (21:09)
--- NOTE | 2023-10-31 21:16 | RAD REPORT ---
EXAM DESCRIPTION: RAD - Chest Single View - 10/31/2023 9:04 pm CLINICAL HISTORY: left chest wall contusion Chest pain. COMPARISON: Chest Pa And Lat (2 Views) dated 10/27/2023; Chest Single View dated 10/26/2023; Chest Sin gle View dated 10/25/2023; Chest Single View dated 10/13/2023 FINDINGS: Portable technique limits examination quality. The lungs are grossly clear. The heart is upper limit of normal in size. No displaced fractures. IMPRESSION: No acute intrathoracic process suspected.
--- NOTE | 2023-10-31 21:30 | EDPHYS ---
Physician Documentation [facility] Name: Geetha Khan Age: 48 yrs Sex: Female : 1975 Arrival Date: 10/31/2023 Time: 20:18 Bed 6 Private MD: ED Physician Uriel Cannon HPI: 10/30 20:19 This 48 yrs old Female presents to ER via Unassigned with complaints of gen sp4 complaint . 10/31 05:56 48-year-old female presents with complaint of left chest wall pain after fall off her sp4 chair at home several days ago.. 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 - Infectious Disease History:: Denies. - Social history:: Smoking status: Patient reports the use of cigarette tobacco products, smokes one-half pack cigarettes per day. - Family history:: not pertinent. ROS: 10/31 05:56 Constitutional: Negative for fever, chills, and weight loss, positive left-sided chest sp4 wall pain All other systems are negative, Exam: 05:56 Constitutional: This is a well developed, well nourished patient who is awake, alert, sp4 and in no acute distress. Chronic persistent left-sided hemiparesis from prior CVA Head/Face: Normocephalic, atraumatic. Eyes: Pupils equal round and reactive to light, extra-ocular motions intact. Lids and lashes normal. Conjunctiva and sclera are not injected. Cornea within normal limits. Periorbital areas with no swelling, redness, or edema. ENT: Nares patent. No nasal discharge, no septal abnormalities noted. Tympanic membranes are normal and external auditory canals are clear. Oropharynx with no redness, swelling, or masses, exudates, or evidence of obstruction, uvula midline. Mucous membranes moist. Neck: Trachea midline, no thyromegaly or masses palpated, and no cervical lymphadenopathy. Supple, full range of motion without nuchal rigidity, or vertebral point tenderness. Chest/axilla: Normal chest wall appearance and motion. Nontender with no deformity. No lesions are appreciated. Cardiovascular: Regular rate and rhythm with a normal S1 and S2. No gallops, murmurs, or rubs. Normal PMI, no JVD. No pulse deficits. Respiratory: Lungs have equal breath sounds bilaterally, clear to auscultation and percussion. No rales, rhonchi or wheezes noted. No increased work of breathing, no retractions or nasal flaring. Abdomen/GI: Soft, with normal bowel sounds. No distension or tympany. No guarding or rebound. No evidence of tenderness throughout. Back: No spinal tenderness. No costovertebral tenderness. Skin: Warm, dry with normal turgor. Normal color with no rashes, no lesions, and no evidence of cellulitis. MS/ Extremity: Pulses equal, no cyanosis. Neurovascular intact. Positive chronic left-sided hemiparesis with left sided muscular contractures Neuro: Awake and alert, GCS 15, oriented to person, place, time, and situation. Positive longstanding chronic left-sided hemiparesis. Otherwise no acute neurologic deficits Psych: Awake, alert, with orientation to person, place and time. Behavior, mood, and affect are within normal limits Vital Signs: 10/30 20:26 BP 100 / 63; Pulse 70; Resp 18; Temp 98; Pulse Ox 100% ; Weight 74.84 kg; Height 5 ft. mb9 2 in. ; Pain 10/10; 21:19 BP 99 / 89; Pulse 67; Resp 16; Pulse Ox 100% on R/A; Pain 9/10; pc2 21:25 BP 112 / 90; Pulse 68; Resp 16; Pulse Ox 100% on R/A; pc2 20:26 Body Mass Index 30.18 (74.84 kg, 157.48 cm) mb9 20:26 Pain Scale: Adult mb9 21:19 Pain Scale: Adult pc2 Mariluz Coma Score: 10/31 05:56 Eye Response: spontaneous(4). Motor Response: obeys commands(6). Verbal Response: sp4 oriented(5). Total: 15. MDM: 10/30 20:30 Patient medically screened. sp4 10/31 05:56 Differential diagnosis: esophagitis, gastritis. Data reviewed: vital signs, nurses sp4 notes, radiologic studies. 05:59 ED course: EXAM DESCRIPTION: RAD - Chest Single View - 10/31/2023 9:04 pm CLINICAL sp4 HISTORY: left chest wall contusion Chest pain. COMPARISON: Chest Pa And Lat (2 Views) dated 10/27/2023; Chest Single View dated 10/26/2023; Chest Single View dated 10/25/2023; Chest Single View dated 10/13/2023 FINDINGS: Portable technique limits examination quality. The lungs are grossly clear. The heart is upper limit of normal in size. No displaced fractures. IMPRESSION: No acute intrathoracic process suspected. . 10/30 20:29 Order name: Chest Single View XRAY; Complete Time: 21:27 sp4 Administered Medications: 10/30 21:19 Drug: Ibuprofen PO 800 mg PO once Route: PO; pc2 22:07 Follow up: Response: No adverse reaction pc2 21:19 Drug: HYDROcodone-acetaminophen PO 5 mg-325 mg 2 tabs PO once Route: PO; pc2 22:07 Follow up: Response: No adverse reaction; Marked relief of symptoms; RASS: Alert and pc2 Calm (0) 21:19 Drug: Diazepam PO 5 mg PO once Route: PO; pc2 22:07 Follow up: Response: No adverse reaction; Marked relief of symptoms; RASS: Alert and pc2 Calm (0) Disposition Summary: 10/31/23 21:29 Discharge Ordered Notes: Location: Home sp4 Problem: new sp4 Symptoms: have improved sp4 Condition: Stable sp4 Diagnosis - left chest wall contusion sp4 Followup: sp4 - With: Private Physician - When: 7 - 10 days - Reason: Recheck today's complaints Discharge Instructions: - Discharge Summary Sheet sp4 - Chest Contusion, Adult, [id number] sp4 Forms: - Prescription Opioid Use sp4 Prescriptions: - acetaminophen-codeine 300-60 mg Oral tablet - take 1 tablet ORAL route every 8 hours PRN Pain; 20 tablet; Refills: 0, Product sp4 Selection Permitted Signatures: Dispatcher [employer] Clair Castillo RN RN mb9 Uriel Cannon MD MD sp4 Mccollum, Shahnaz, RN RN pc2
--- NOTE | 2023-10-31 21:30 | ER ---
Nurse's Notes [facility] Name: Geetha Khan Age: 48 yrs Sex: Female : 1975 Arrival Date: 10/31/2023 Time: 20:18 Bed 6 Private MD: Diagnosis: left chest wall contusion Presentation: 10/30 20:26 Chief complaint: Patient states: "I started having anxiety, rib and shoulder pain all mb9 of a sudden. I took a pain pill before coming here". Coronavirus screen: Vaccine status: Patient reports receiving the 2nd dose of the covid vaccine. Ebola Screen: No symptoms or risks identified at this time. Initial Sepsis Screen: Does the patient meet any 2 criteria? No. Patient's initial sepsis screen is negative. Does the patient have a suspected source of infection? No. Patient's initial sepsis screen is negative. Risk Assessment: Do you want to hurt yourself or someone else? Patient reports no desire to harm self or others. Onset of symptoms was October 31, 2023. 20:26 Acuity: CORRINA 3 mb9 20:26 Method Of Arrival: Wheelchair mb9 Triage Assessment: 20:28 General: Appears in no apparent distress. Behavior is cooperative, anxious. Pain: mb9 Complains of pain in left arm. Neuro: Level of Consciousness is awake, alert, obeys commands, Oriented to person, place, time, situation, Appropriate for age. Cardiovascular: Patient's skin is warm and dry. Derm: Skin is pink, warm \\T\\ dry. 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 - Infectious Disease History:: Denies. - Social history:: Smoking status: Patient reports the use of cigarette tobacco products, smokes one-half pack cigarettes per day. - Family history:: not pertinent. Screenin:21 [facility] ED Fall Risk Assessment (Adult) History of falling in the last 3 months, pc2 including since admission Yes- single mechanical fall (1 pt) Confusion or Disorientation No (0 pts) Intoxicated or Sedated No (0 pts) Impaired Gait Yes (1 pt) Mobility Assist Device Used Yes (1 pt) Altered Elimination No (0 pt) Score/Fall Risk Level 3 or more points = High Risk Oriented to surroundings, Maintained a safe environment, Educated pt \\T\\ family on fall prevention, incl call for assistance when getting out of bed, Hourly rounding (assess needs \\T\\ fall precautionary measures) done. Abuse screen: Denies threats or abuse. Denies injuries from another. Nutritional screening: No deficits noted. Tuberculosis screening: No symptoms or risk factors identified. Assessment: 21:21 General: Appears in no apparent distress. comfortable, unkempt, Behavior is calm, pc2 cooperative, appropriate for age. Neuro: Mullen Agitation-Sedation Scale (RASS): 0 - Alert and Calm Level of Consciousness is awake, alert, obeys commands, Oriented to person, place, time, situation. Cardiovascular: Heart tones S1 S2 Patient's skin is warm and dry. Respiratory: Airway is patent Respiratory effort is even, unlabored, Respiratory pattern is regular, symmetrical. GI: No signs and/or symptoms were reported involving the gastrointestinal system. : No signs and/or symptoms were reported regarding the genitourinary system. EENT: No signs and/or symptoms were reported regarding the EENT system. Derm: No signs and/or symptoms reported regarding the dermatologic system. Musculoskeletal: pain to left arm and side after falling from her wheelchair a couple days ago. Vital Signs: 20:26 BP 100 / 63; Pulse 70; Resp 18; Temp 98; Pulse Ox 100% ; Weight 74.84 kg; Height 5 ft. mb9 2 in. ; Pain 10/10; 21:19 BP 99 / 89; Pulse 67; Resp 16; Pulse Ox 100% on R/A; Pain 9/10; pc2 21:25 BP 112 / 90; Pulse 68; Resp 16; Pulse Ox 100% on R/A; pc2 20:26 Body Mass Index 30.18 (74.84 kg, 157.48 cm) mb9 20:26 Pain Scale: Adult mb9 21:19 Pain Scale: Adult pc2 Mariluz Coma Score: 10/31 05:56 Eye Response: spontaneous(4). Motor Response: obeys commands(6). Verbal Response: sp4 oriented(5). Total: 15. ED Course: 10/30 20:19 Patient arrived in ED. ld1 20:19 Uriel Cannon MD is Attending Physician. sp4 20:28 Triage completed. mb9 20:28 Arm band placed on. mb9 21:06 Chest Single View XRAY In Process Unspecified. EDMS 21:15 Shahnaz Mccollum, RN is Primary Nurse. pc2 21:21 No provider procedures requiring assistance completed. pc2 21:24 Patient has correct armband on for positive identification. Bed in low position. Call pc2 light in reach. Side rails up X2. Provided Education on: POC an time frame. Client placed on continuous cardiac and pulse oximetry monitoring. NIBP monitoring applied. 21:55 Patient did not have IV access during this emergency room visit. pc2 Administered Medications: 21:19 Drug: Ibuprofen PO 800 mg PO once Route: PO; pc2 22:07 Follow up: Response: No adverse reaction pc2 21:19 Drug: HYDROcodone-acetaminophen PO 5 mg-325 mg 2 tabs PO once Route: PO; pc2 22:07 Follow up: Response: No adverse reaction; Marked relief of symptoms; RASS: Alert and pc2 Calm (0) 21:19 Drug: Diazepam PO 5 mg PO once Route: PO; pc2 22:07 Follow up: Response: No adverse reaction; Marked relief of symptoms; RASS: Alert and pc2 Calm (0) Medication: 21:24 VIS not applicable for this client. pc2 Outcome: 21:29 Discharge ordered by . sp4 21:55 Discharged to home via wheelchair, with family, pc2 21:55 Condition: stable 21:55 Discharge instructions given to patient, family, Instructed on discharge instructions, Demonstrated understanding of instructions, follow-up care, medications, Prescriptions given X 1, 22:07 Patient left the ED. pc2 Signatures: Dispatcher [employer] EDMS Rita Hoyos RN RN ld1 Giovanni, Clair Quiroz RN RN mb9 Uriel Cannon MD MD spShahnaz Gonzalez, RN RN pc2
[2023-10-31 22:14] VITALS: TEMP 98; O2SAT 100
[2023-10-31 22:17] VITALS: BP 112/90
== END 2023-10-31 22:07 | disposition home or self-care (01) ==
LOC: ER 20:18
DX: S20.212A Contusion of left front wall of thorax, initial encounter (principal); W07.XXXA Fall from chair, initial encounter; Y92.009 Unspecified place in unspecified non-institutional (private) residence as the place of occurrence of the external cause; I69.954 Hemiplegia and hemiparesis following unspecified cerebrovascular disease affecting left non-dominant side; I10 Essential (primary) hypertension; J44.9 Chronic obstructive pulmonary disease, unspecified; I25.2 Old myocardial infarction; R07.9 Chest pain, unspecified; G89.29 Other chronic pain; E07.9 Disorder of thyroid, unspecified; F17.210 Nicotine dependence, cigarettes, uncomplicated; Z88.8 Allergy status to other drugs, medicaments and biological substances; Z91.013 Allergy to seafood; Z91.018 Allergy to other foods
CPT/HCPCS: 71045; 99284

== ENCOUNTER 2023-11-01 18:50 | Emergency (ER) | payer OTHER ==
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
--- NOTE | 2023-11-01 20:24 | EDPHYS ---
Physician Documentation [facility] Name: Geetha Khan Age: 48 yrs Sex: Female : 1975 Arrival Date: 11/01/2023 Time: 18:50 Bed DX4 Private MD: ED Physician Russell Rodriguez HPI: 10/31 20:23 This 48 yrs old Female presents to ER via EMS with complaints of Chest Pain, ec2 rib pain. 20:23 Patient arrives today for evaluation of chest wall pain. Reports that she had fallen ec2 several weeks ago, still having left-sided chest wall pain, states that she has been unable to fill her prescription of Tylenol 3, has been taking Clear for her pain. No new falls injuries or trauma, no other new components to this. Has been seen multiple times for this. Recent imaging shows a chest x-ray that showed no acute intrathoracic process.. Historical: - Allergies: 19:55 Aspirin; tl4 19:55 CRANBERRY; tl4 19:55 FISH PRODUCT DERIVATIVES; tl4 19:55 GRAPEFRUIT; tl4 19:55 mushrooms; tl4 - PMHx: 19:55 Asthma; Cerebrovascular accident; Chronic Chest Pain; COPD; Hypertension; Left arm tl4 paralysis and left leg weakness from previous CVA; Myocardial infarction; Seizures; Thyroid problem; - Immunization history:: Adult Immunizations unknown. - Infectious Disease History:: Denies. - Social history:: Smoking status: Patient denies any tobacco usage or history of. ROS: 20:23 Constitutional: as per hpi ec2 Exam: 20:23 Constitutional: GEN: NAD Head: atraumatic Eyes: EOMI Ears: External ears are ec2 normal. CV: regular rate LUNGS: no respiratory distress ABD: non-distended SKIN: no evidence of rashes MSK: no evidence of trauma Vital Signs: 19:49 BP 115 / 67; Pulse 80; Resp 18; Temp 97.2(TE); Pulse Ox 98% on R/A; Weight 66.22 kg; tl4 Height 5 ft. 2 in. ; Pain 10/10; 19:49 Body Mass Index 26.70 (66.22 kg, 157.48 cm) tl4 19:49 Pain Scale: Adult tl4 MDM: 20:23 Patient medically screened. ec2 20:23 Data reviewed: vital signs. ED course: Patient arrives today for chest wall pain. ec2 Examination remarkable for well-appearing nontoxic individual is otherwise in no acute distress with reassuring examination. Patient story is consistent with chest wall pain. I doubt ACS given lack of exertional component, doubt other process such as PE or dissection. Will discharge home. Return precautions given. . Administered Medications: 20:33 Drug: Methocarbamol PO 500 mg PO once Route: PO; kj2 20:35 Follow up: Response: Medication administered at discharge. kj2 20:33 Drug: Acetaminophen PO 1000 mg PO once Route: PO; kj2 20:35 Follow up: Response: No adverse reaction kj2 Disposition Summary: 11/01/23 20:23 Discharge Ordered Notes: Location: Home ec2 Condition: Stable ec2 Diagnosis - Chest Wall Pain ec2 Followup: ec2 - With: Private Physician - When: - Reason: Re-evaluation by your physician Discharge Instructions: - Discharge Summary Sheet ec2 - Chest Wall Pain, [id number] ec2 Forms: - Medication Reconciliation Form ec2 - Antibiotic Education ec2 - Prescription Opioid Use ec2 - Patient Portal Instructions ec2 - Leadership Thank You Letter ec2 Signatures: Russell Rodriguez MD MD ec2 Ruben Ruiz RN RN tl4 Hortencia Maldonado, YANETH RN kj2 Corrections: (The following items were deleted from the chart) 21:14 20:23 Constitutional: GEN: NAD Head: atraumatic Eyes: EOMI Ears: External ears are ec2 normal. CV: regular rate LUNGS: no respiratory distress ABD: non-distended SKIN: no evidence of rashes MSK: no evidence of trauma NEURO: moves all extremities equally ec2
[2023-11-01] MEDS ORDERED: ACETAMINOPHEN 500 MG TAB ONE (20:28)
[2023-11-01] MEDS ORDERED: methocarbamoL 500 MG TAB ONE (20:29)
[2023-11-01 20:54] VITALS: BP 115/67; TEMP 97.2; O2SAT 98
== END 2023-11-01 20:36 | disposition home or self-care (01) ==
LOC: ER 18:50
DX: R07.89 Other chest pain (principal); I10 Essential (primary) hypertension; J44.9 Chronic obstructive pulmonary disease, unspecified; Z86.73 Personal history of transient ischemic attack (TIA), and cerebral infarction without residual deficits
CPT/HCPCS: 99283

== ENCOUNTER 2023-11-02 20:26 | Emergency (ER) | payer OTHER ==
[2023-11-02] MEDS ORDERED: DIPHENHYDRAMINE 50 MG/ML VIAL ONE (21:37)
[2023-11-02] MEDS ORDERED: METHYLPREDNISOLONE 40 MG INJ ONE (21:37)
[2023-11-02] MEDS ORDERED: NA CHLORIDE 0.9% 1,000 ML ONE (21:38)
[2023-11-02] MEDS ORDERED: FAMOTIDINE 20 MG/2 ML VIAL IV ONE (21:38)
--- NOTE | 2023-11-02 22:20 | ER ---
Nurse's Notes [facility] Name: Geetha Khan Age: 48 yrs Sex: Female : 1975 Arrival Date: 11/02/2023 Time: 20:26 Bed 14 Private MD: Diagnosis: Allergy, unspecified Presentation: 11/01 20:30 Chief complaint: EMS states: possible allergic reaction. Patient states she is itching tm6 all over. Patient believes it has been caused by one of her medications, but is unsure which one. She most recently took a norco around 4pm. Coronavirus screen: Vaccine status: Patient reports being unvaccinated. Ebola Screen: Patient negative for fever greater than or equal to 101.5 degrees Fahrenheit, and additional compatible Ebola Virus Disease symptoms Patient denies exposure to infectious person. Patient denies travel to an Ebola-affected area in the 21 days before illness onset. No symptoms or risks identified at this time. Onset: The symptoms/episode began/occurred today. Anaphylaxis evaluation, no signs or symptoms of anaphylaxis were noted. Initial Sepsis Screen: Does the patient meet any 2 criteria? No. Patient's initial sepsis screen is negative. Does the patient have a suspected source of infection? No. Patient's initial sepsis screen is negative. Risk Assessment: Do you want to hurt yourself or someone else? Patient reports no desire to harm self or others. Onset of symptoms was November 02, 2023. 20:30 Method Of Arrival: EMS: [facility] tm6 20:30 Acuity: CORRINA 3 tm6 Triage Assessment: 20:33 General: Appears in no apparent distress. Behavior is calm, cooperative. Pain: Denies tm6 pain. EENT: No signs and/or symptoms were reported regarding the EENT system. Neuro: Level of Consciousness is awake, alert, obeys commands, Oriented to person, place, time, situation. Cardiovascular: No deficits noted. Denies chest pain, Patient's skin is warm and dry. Respiratory: Airway is patent Respiratory effort is even, unlabored, Respiratory pattern is regular, symmetrical. GI: No signs and/or symptoms were reported involving the gastrointestinal system. Abdomen is flat, non-distended. : No signs and/or symptoms were reported regarding the genitourinary system. Derm: Skin is pink, warm \T\ dry. Reports itching, itching all over. Musculoskeletal: No signs and/or symptoms reported regarding the musculoskeletal system. MANAGER SALES SUPPORT: 21:56 unknown pc2 Historical: - Allergies: 20:33 Aspirin; tm6 20:33 CRANBERRY; tm6 20:33 FISH PRODUCT DERIVATIVES; tm6 20:33 GRAPEFRUIT; tm6 20:33 mushrooms; tm6 - PMHx: 20:33 Asthma; Cerebrovascular accident; Chronic Chest Pain; COPD; Hypertension; Left arm tm6 paralysis and left leg weakness from previous CVA; Myocardial infarction; Seizures; Thyroid problem; - Immunization history:: Client reports having NOT received the Covid vaccine. - Infectious Disease History:: Denies. - Social history:: Smoking status: Patient reports the use of cigarette tobacco products, smokes one pack cigarettes per day. Patient/guardian denies using alcohol. Screenin:45 [facility] ED Fall Risk Assessment (Adult) History of falling in the last 3 months, pc2 including since admission Yes- single mechanical fall (1 pt) Confusion or Disorientation No (0 pts) Intoxicated or Sedated No (0 pts) Impaired Gait Yes (1 pt) Mobility Assist Device Used Yes (1 pt) Altered Elimination Yes (1 pt) Score/Fall Risk Level 3 or more points = High Risk Oriented to surroundings, Maintained a safe environment, Educated pt \T\ family on fall prevention, incl call for assistance when getting out of bed, Hourly rounding (assess needs \T\ fall precautionary measures) done, Utilized family, sitter, or virtual hatchery manager as indicated. Abuse screen: Denies threats or abuse. Denies injuries from another. Nutritional screening: No deficits noted. Tuberculosis screening: No symptoms or risk factors identified. Assessment: 21:00 General: Appears in no apparent distress. uncomfortable, slender, unkempt, Behavior is pc2 calm, cooperative. Pain: Denies pain. Cardiovascular: Denies chest pain, palpitations, shortness of breath. Respiratory: Airway is patent Respiratory effort is even, unlabored, Respiratory pattern is regular, symmetrical. Respiratory: Breath sounds are clear bilaterally. GI: No signs and/or symptoms were reported involving the gastrointestinal system. : No signs and/or symptoms were reported regarding the genitourinary system. EENT: No signs and/or symptoms were reported regarding the EENT system. Derm: Reports itching, since today. reports possible allergic reaction from her hydrocodone. Musculoskeletal: No signs and/or symptoms reported regarding the musculoskeletal system. 22:20 Reassessment: Patient appears in no apparent distress at this time. No changes from pc2 previously documented assessment. Patient states symptoms have improved. Vital Signs: 20:30 BP 98 / 84; Pulse 67; Resp 18; Temp 97.6(O); Pulse Ox 100% on R/A; Weight 74.84 kg; tm6 Height 5 ft. 2 in. ; Pain 0/10; 21:55 BP 104 / 70; Pulse 68; Resp 16; Pulse Ox 100% on R/A; pc2 23:00 BP 113 / 80; Pulse 72; Resp 18; Pulse Ox 100% on R/A; pc2 20:30 Body Mass Index 30.18 (74.84 kg, 157.48 cm) tm6 20:30 Pain Scale: Adult tm6 ED Course: 20:28 Patient arrived in ED. jj6 20:30 Greg Allen, RN is Primary Nurse. tm6 20:30 Michael Nguyen PA is PHCP. cp 20:30 Russell Rodriguez MD is Attending Physician. cp 20:33 Triage completed. tm6 20:33 Arm band placed on right wrist. tm6 21:24 Shahnaz Mccollum, RN is Primary Nurse. pc2 21:30 Inserted saline lock: 20 gauge in left antecubital area, using aseptic technique. pc2 Flushed with 10 mL NS. 21:56 Patient has correct armband on for positive identification. Bed in low position. Call pc2 light in reach. Side rails up X2. Provided Education on: POC and time frame. 21:56 No provider procedures requiring assistance completed. pc2 23:27 IV discontinued, intact, bleeding controlled, No redness/swelling at site. Pressure pc2 dressing applied. Administered Medications: 21:42 Drug: MethylPrednisoLONE IVP 80 mg IVP once Route: IVP; Site: left antecubital; pc2 23:26 Follow up: Response: No adverse reaction pc2 21:45 Drug: NS 0.9% IV 1000 ml IV at 1 bolus Per protocol; 1000 mL bolus Route: IV; Rate: 1 pc2 bolus; Site: left antecubital; 23:26 Follow up: IV Status: Completed infusion; IV Intake: 1000ml pc2 21:45 Drug: Famotidine IVP 20 mg IVP once; dilute with 10 mL 0.9% NaCl; give over 2 minutes pc2 Route: IVP; Site: left antecubital; 23:25 Follow up: Response: No adverse reaction pc2 21:51 Drug: diphenhydrAMINE IVP 25 mg IVP once Route: IVP; Site: left antecubital; pc2 23:26 Follow up: Response: No adverse reaction; RASS: Alert and Calm (0) pc2 Medication: 21:56 VIS not applicable for this client. pc2 Intake: 23:26 IV: 1000ml; Total: 1000ml. pc2 Outcome: 22:19 Discharge ordered by MD. cp 23:26 Discharged to home via wheelchair, with family, pc2 23:26 Condition: stable 23:26 Discharge instructions given to patient, Instructed on discharge instructions, follow up and referral plans. medication usage, Demonstrated understanding of instructions, follow-up care, medications, Prescriptions given X 2, 23:28 Patient left the ED. pc2 Signatures: Michael Nguyen PA PA cp Jeffries, Jennifer jj6 Greg Allen, RN RN tm6 Shahnaz Mccollum, RN RN pc2 Corrections: (The following items were deleted from the chart) 21:53 20:46 Famotidine IVP 20 mg IVP in left antecubital pc2 pc2 21:53 20:49 MethylPrednisoLONE IVP 80 mg IVP in left antecubital pc2 pc2 21:54 20:45 NS 0.9% IV 1000 ml IV at 1 bolus in left antecubital pc2 pc2
--- NOTE | 2023-11-02 22:20 | EDPHYS ---
Physician Documentation [facility] Name: Geetha Khan Age: 48 yrs Sex: Female : 1975 Arrival Date: 11/02/2023 Time: 20:26 Bed 14 Private MD: ED Physician Russell Rodriguez HPI: 11/01 20:50 This 48 yrs old Female presents to ER via EMS with complaints of Allergic Reaction. cp 20:50 The patient presents with rash, that is diffuse, generalized itching. cp 20:50 Possible causes: narcotic, hydrocodone. cp 20:50 Onset: The symptoms/episode began/occurred today. cp 20:50 At home the patient or guardian has treated the symptoms with nothing. 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 - Infectious Disease History:: Denies. - Social history:: Smoking status: Patient reports the use of cigarette tobacco products, smokes one pack cigarettes per day. Patient/guardian denies using alcohol. ROS: 20:55 Constitutional: Negative for body aches, chills, fever, poor PO intake, cp 20:55 Eyes: Negative for injury, pain, redness, and discharge, cp 20:55 Cardiovascular: Negative for chest pain, 20:55 Respiratory: Negative for shortness of breath, wheezing, 20:55 Abdomen/GI: Negative for vomiting, diarrhea, constipation, 20:55 Skin: Positive for rash, diffusely, generalized itching, 20:55 All other systems are negative, Exam: 21:00 Constitutional: The patient appears in no acute distress, alert, awake, cp non-diaphoretic, non-toxic, well developed, well nourished, 21:00 Head/Face: Normocephalic, atraumatic. cp 21:00 Eyes: Periorbital structures: appear normal, Conjunctiva: normal, no exudate, no injection, Lids and lashes: appear normal, bilaterally, 21:00 ENT: External ear(s): are unremarkable, Nose: is normal, Mouth: Lips: moist, Oral mucosa: moist, Posterior pharynx: Airway: no evidence of obstruction, patent, swelling, is not appreciated, 21:00 Cardiovascular: Rate: normal, Rhythm: regular, 21:00 Respiratory: the patient does not display signs of respiratory distress, Respirations: normal, no use of accessory muscles, no retractions, labored breathing, is not present, Breath sounds: are clear throughout, no decreased breath sounds, no stridor, no wheezing, 21:00 Abdomen/GI: Exam negative for discomfort, distension, guarding, 21:00 Skin: rash can be described as urticarial, and is diffusely located, Vital Signs: 20:30 BP 98 / 84; Pulse 67; Resp 18; Temp 97.6(O); Pulse Ox 100% on R/A; Weight 74.84 kg; tm6 Height 5 ft. 2 in. ; Pain 0/10; 21:55 BP 104 / 70; Pulse 68; Resp 16; Pulse Ox 100% on R/A; pc2 23:00 BP 113 / 80; Pulse 72; Resp 18; Pulse Ox 100% on R/A; pc2 20:30 Body Mass Index 30.18 (74.84 kg, 157.48 cm) tm6 20:30 Pain Scale: Adult tm6 MDM: 20:30 Patient medically screened. 21:00 Differential diagnosis: anaphylaxis, angioedema, urticaria. 22:18 Data reviewed: vital signs, nurses notes, and as a result, I will discharge patient. 22:18 I considered the following discharge prescriptions or medication management in the emergency department Medications were administered in the Emergency Department. See MAR. Care significantly affected by the following chronic conditions: Hypertension, Chronic Obstructive Pulmonary Disease. Counseling: I had a detailed discussion with the patient and/or guardian regarding the historical points, exam findings, and any diagnostic results supporting the discharge/admit diagnosis, to return to the emergency department if symptoms worsen or persist or if there are any questions or concerns that arise at home. 11/01 20:44 Order name: IV; Complete Time: 21:51 Administered Medications: 21:42 Drug: MethylPrednisoLONE IVP 80 mg IVP once Route: IVP; Site: left antecubital; pc2 23:26 Follow up: Response: No adverse reaction pc2 21:45 Drug: NS 0.9% IV 1000 ml IV at 1 bolus Per protocol; 1000 mL bolus Route: IV; Rate: 1 pc2 bolus; Site: left antecubital; 23:26 Follow up: IV Status: Completed infusion; IV Intake: 1000ml pc2 21:45 Drug: Famotidine IVP 20 mg IVP once; dilute with 10 mL 0.9% NaCl; give over 2 minutes pc2 Route: IVP; Site: left antecubital; 23:25 Follow up: Response: No adverse reaction pc2 21:51 Drug: diphenhydrAMINE IVP 25 mg IVP once Route: IVP; Site: left antecubital; pc2 23:26 Follow up: Response: No adverse reaction; RASS: Alert and Calm (0) pc2 Disposition Summary: 11/02/23 22:19 Discharge Ordered Notes: Location: Home cp Problem: new cp Symptoms: have improved cp Condition: Stable cp Diagnosis - Allergy, unspecified cp Followup: cp - With: Private Physician - When: 2 - 3 days - Reason: Recheck today's complaints Discharge Instructions: - Discharge Summary Sheet cp - Allergies, Adult cp Forms: - Medication Reconciliation Form cp - Antibiotic Education cp - Prescription Opioid Use cp - Patient Portal Instructions cp - Leadership Thank You Letter cp Prescriptions: - Pepcid 20 mg Oral Tablet - take 1 tablet ORAL route every 12 hours for 5 days; 10 tablet; Refills: 0, cp Product Selection Permitted - Prednisone 20 mg Oral Tablet - take 2 tablets ORAL route once daily for 5 days; 10 tablet; Refills: 0, Product cp Selection Permitted Signatures: Michael Nguyen PA PA cp Greg Allen, RN RN tm6 Shahnaz Mccollum, RN RN pc2 Corrections: (The following items were deleted from the chart) 11/02 17:07 11/01 20:50 Possible causes: The patient has no known obvious cause for the symptoms, cpcp
[2023-11-02 23:40] VITALS: TEMP 97.6; O2SAT 100
[2023-11-02 23:54] VITALS: BP 113/80
== END 2023-11-02 23:28 | disposition home or self-care (01) ==
LOC: ER 20:26
DX: R21 Rash and other nonspecific skin eruption (principal); Z88.6 Allergy status to analgesic agent; Z91.013 Allergy to seafood; Z91.018 Allergy to other foods
CPT/HCPCS: 96361; 96375; 96374; 99284; J1200; J7030; J2919

== ENCOUNTER 2023-11-07 18:03 | Emergency (ER) | payer OTHER, SELFPAY ==
--- NOTE | 2023-11-07 18:18 | EDPHYS ---
Physician Documentation [facility] Name: Geetha Khan Age: 48 yrs Sex: Female : 1975 Arrival Date: 11/07/2023 Time: 18:03 Bed 15 Private MD: ED Physician Russell Rodriguez HPI: 11/06 18:31 This 48 yrs old Female presents to ER via EMS with complaints of Chest Wall Pain. sb4 18:31 continued chest wall pain s/p fall 2 weeks ago. states she has pain medication at home, sb4 but her took it to work today so her sister wouldn't steal it. 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 - Infectious Disease History:: Denies. - Social history:: Smoking status: unknown Patient/guardian denies using alcohol. ROS: 18:31 Constitutional: Negative for fever, chills, and weight loss, sb4 18:31 MS/extremity: Positive for injury or acute deformity, pain, of the left lateral anterior chest, 18:31 All other systems are negative, Exam: 18:31 Constitutional: This is a well developed, well nourished patient who is awake, alert, sb4 and in no acute distress. Head/Face: Normocephalic, atraumatic. Eyes: Extra-ocular motions intact. Periorbital areas with no swelling, redness, or edema. ENT: Mucous membranes moist. Cardiovascular: Regular rate and rhythm with a normal S1 and S2. Respiratory: Lungs have equal breath sounds bilaterally, clear to auscultation and percussion. No rales, rhonchi or wheezes noted. No increased work of breathing, no retractions or nasal flaring. Skin: Warm, dry with normal turgor. Normal color with no rashes, no lesions, and no evidence of cellulitis. Vital Signs: 18:21 BP 104 / 69; Pulse 73; Resp 18; Pulse Ox 99% on R/A; kj2 18:24 BP 104 / 69; Pulse 73; Resp 20; Temp 98; Pulse Ox 99% on R/A; kj2 18:47 BP 108 / 70; Pulse 76; Resp 18; Temp 98.2; Pulse Ox 99% on R/A; kj2 MDM: 18:07 Patient medically screened. sb4 18:32 Data reviewed: vital signs, nurses notes, EMS record, EKG, and as a result, I will sb4 discharge patient. Counseling: I had a detailed discussion with the patient and/or guardian regarding the historical points, exam findings, and any diagnostic results supporting the discharge/admit diagnosis, the need for outpatient follow up, for definitive care, to return to the emergency department if symptoms worsen or persist or if there are any questions or concerns that arise at home. 11/06 18:06 Order name: EKG - Nurse/Tech; Complete Time: 18:45 ec2 EC:45 Rate is 68 beats/min. Rhythm is regular, Normal Sinus Rhythm. OK interval is normal at sb4 192 msec. QRS interval is normal at 88 msec. QT interval is normal at 406 msec. No Q waves. T waves are Normal. No ST changes noted. Clinical impression: Abnormal EKG without significant change and LVH. Interpreted by me. Reviewed by me. Administered Medications: 18:45 Drug: traMADol PO 50 mg PO once Route: PO; kj2 18:46 Follow up: Response: No adverse reaction; Medication administered at discharge. kj2 Disposition Summary: 11/07/23 18:17 Discharge Ordered Notes: Location: Home sb4 Problem: an ongoing problem sb4 Symptoms: have improved sb4 Condition: Stable sb4 Diagnosis - Chest wall pain sb4 Followup: sb4 - With: Private Physician - When: 2 - 3 days - Reason: Recheck today's complaints, Re-evaluation by your physician Forms: - Medication Reconciliation Form sb4 - Antibiotic Education sb4 - Prescription Opioid Use sb4 - Patient Portal Instructions sb4 - Leadership Thank You Letter sb4 Addendum: 11/11/2023 16:08 I was immediately available for consultation during this patient's visit. I did not e c2 personally see the patient or discuss the patient with the SEGUN. . Signatures: Kalli Bradshaw PA-C PA-C sb4 Russell Rodriguez MD MD ec2 Hortencia Maldonado RN RN kj2
[2023-11-07] MEDS ORDERED: TRAMADOL HCL 50 MG TAB ONE (18:33)
--- NOTE | 2023-11-07 19:07 | ER ---
Nurse's Notes [facility] Name: Geetha Khan Age: 48 yrs Sex: Female : 1975 Arrival Date: 11/07/2023 Time: 18:03 Bed 15 Private MD: Diagnosis: Chest wall pain Presentation: 11/06 18:21 Chief complaint: EMS states: chest pain. Coronavirus screen: At this time, the client kj2 does not indicate any symptoms associated with coronavirus-19. Ebola Screen: No symptoms or risks identified at this time. Initial Sepsis Screen: Does the patient meet any 2 criteria? No. Patient's initial sepsis screen is negative. Does the patient have a suspected source of infection? No. Patient's initial sepsis screen is negative. Risk Assessment: Do you want to hurt yourself or someone else? Patient reports no desire to harm self or others. Onset of symptoms was November 07, 2023. 18:21 Method Of Arrival: EMS: [facility] kj2 18:21 Acuity: CORRINA 3 kj2 Triage Assessment: 18:25 General: Appears in no apparent distress. Behavior is calm, cooperative. Pain: kj2 Complains of pain in left side of chest. Cardiovascular: Patient's skin is warm and dry. Respiratory: Airway is patent Respiratory effort is unlabored. GI: No deficits noted. : No deficits noted. 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 - Infectious Disease History:: Denies. - Social history:: Smoking status: unknown Patient/guardian denies using alcohol. Screenin:26 [facility] ED Fall Risk Assessment (Adult) History of falling in the last 3 months, kj2 including since admission Yes- single mechanical fall (1 pt) Confusion or Disorientation No (0 pts) Intoxicated or Sedated No (0 pts) Impaired Gait Yes (1 pt) Mobility Assist Device Used Yes (1 pt) Altered Elimination Yes (1 pt) Score/Fall Risk Level 3 or more points = High Risk Maintained a safe environment, Educated pt \T\ family on fall prevention, incl call for assistance when getting out of bed, Hourly rounding (assess needs \T\ fall precautionary measures) done. Abuse screen: Denies threats or abuse. Denies injuries from another. Nutritional screening: No deficits noted. Tuberculosis screening: No symptoms or risk factors identified. Assessment: 18:28 Pain: Pain does not radiate. Pain began 1 hour ago. kj2 Vital Signs: 18:21 BP 104 / 69; Pulse 73; Resp 18; Pulse Ox 99% on R/A; kj2 18:24 BP 104 / 69; Pulse 73; Resp 20; Temp 98; Pulse Ox 99% on R/A; kj2 18:47 BP 108 / 70; Pulse 76; Resp 18; Temp 98.2; Pulse Ox 99% on R/A; kj2 ED Course: 18:05 Patient arrived in ED. ec2 18:05 Russell Rodriguez MD is Attending Physician. ec2 18:07 Kalli Bradshaw PA-C is PHCP. sb4 18:21 Hortencia Maldonado RN is Primary Nurse. kj2 18:23 Triage completed. kj2 18:27 Patient has correct armband on for positive identification. Bed in low position. Call kj2 light in reach. Provided Education on: call light, fall precautions. Client placed on continuous cardiac and pulse oximetry monitoring. NIBP monitoring applied. 18:27 Arm band placed on. kj2 18:28 No provider procedures requiring assistance completed. Patient did not have IV access kj2 during this emergency room visit. 18:28 Patient maintains SpO2 saturation greater than 95% on room air. kj2 Administered Medications: 18:45 Drug: traMADol PO 50 mg PO once Route: PO; kj2 18:46 Follow up: Response: No adverse reaction; Medication administered at discharge. kj2 Medication: 18:27 VIS not applicable for this client. kj2 Outcome: 18:17 Discharge ordered by . sb4 18:28 Discharged to home via wheelchair, kj2 18:28 Condition: stable 18:28 Discharge instructions given to Instructed on discharge instructions, follow up and referral plans. 19:06 Patient left the ED. kj2 Signatures: Kalli Bradshaw PA-C PA-C sb4 Russell Rodriguez MD MD ec2 Hortencia Maldonado RN RN kj2
[2023-11-07 20:03] VITALS: O2SAT 99
[2023-11-07 20:07] VITALS: BP 108/70; TEMP 98.2
--- NOTE | 2023-11-08 13:28 | EKG ---
Test Date: 2023-11-07 Test Time: 18:41:02 Service Delivery Management Consultant: JOE MEASUREMENT RESULTS: Intervals: Rate: 68 AL: 192 QRSD: 88 QT: 406 QTc: 431 [place]: P: 71 AL: 192 QRS: 23 T: 164 INTERPRETIVE STATEMENTS: Normal sinus rhythm Left ventricular hypertrophy with repolarization abnormality Abnormal ECG Compared to ECG 10/27/2023 22:53:24 No significant changes Electronically Signed On 11-08-23 13:26:26 CDT by Alan Garay
== END 2023-11-07 19:06 | disposition home or self-care (01) ==
LOC: ER 18:03
DX: R07.89 Other chest pain (principal)
CPT/HCPCS: 93005; 99284

== ENCOUNTER 2023-11-08 21:11 | Emergency (ER) | payer SELFPAY ==
--- NOTE | 2023-11-08 21:19 | EDPHYS ---
Physician Documentation [facility] Name: Geetha Khan Age: 48 yrs Sex: Female : 1975 Arrival Date: 11/08/2023 Time: 21:11 Bed 5 Private MD: ED Physician Uriel Cannon HPI: 11/07 21:39 This 48 yrs old Female presents to ER via Ambulatory with complaints of Chest wall Pain.sb4 21:39 left chest wall and left shoulder pain that persists secondary to fall several weeks sb4 ago. has pain medication at home, but has been taking it to work so her sister won't steal it. seen by me yesterday for same story. Historical: - Allergies: 21:24 Aspirin; ss 21:24 CRANBERRY; ss 21:24 FISH PRODUCT DERIVATIVES; ss 21:24 GRAPEFRUIT; ss 21:24 mushrooms; ss - PMHx: 21:24 Asthma; Cerebrovascular accident; Chronic Chest Pain; COPD; Hypertension; Left arm ss paralysis and left leg weakness from previous CVA; Myocardial infarction; Seizures; Thyroid problem; - Immunization history:: Client reports having NOT received the Covid vaccine. - Infectious Disease History:: Denies. - Social history:: Smoking status: Patient reports the use of cigarette tobacco products, smokes one-half pack cigarettes per day. ROS: 21:39 Constitutional: Negative for fever, chills, and weight loss, sb4 21:39 MS/extremity: Positive for per HPI, 21:39 All other systems are negative, Exam: 21:39 Constitutional: This is a well developed, well nourished patient who is awake, alert, sb4 and in no acute distress. 21:39 Skin: Warm, dry with normal turgor. Normal color with no rashes, no lesions, and no evidence of cellulitis. Vital Signs: 21:17 BP 120 / 74; Pulse 71; Resp 18; Temp 97.4(TE); Pulse Ox 100% on R/A; Weight 74.84 kg; ss Height 5 ft. 2 in. ; Pain 10/10; 21:40 BP 112 / 73; Pulse 77; Resp 19; Temp 97.9; Pulse Ox 97% ; jj7 21:17 Body Mass Index 30.18 (74.84 kg, 157.48 cm) ss 21:17 Pain Scale: Adult ss MDM: 21:17 Patient medically screened. sb4 21:39 Data reviewed: vital signs, nurses notes, EMS record, and as a result, I will discharge sb4 patient. ED course: I instructed patient this is the last time I will give her tramadol and she needs to stop coming to the ED for the same issue and abusing EMS services. she verbalized understanding. Administered Medications: 21:45 Drug: traMADol PO 50 mg PO once Route: PO; bm8 21:53 Follow up: Response: Medication administered at discharge. ss 21:54 Follow up: Response: No adverse reaction jj7 Disposition: 11/08 06:55 Co-signature as Attending Physician, Uriel Cannon MD I agree with the assessment sp4 and plan of care. I reviewed the patient's care provided by Advanced Practice Provider \T\ agree w/ the diagnosis \T\ care plan. I personally saw the pt \T\ performed a substantive portion of the visit, incldng all aspects of the (History/Exam/Medical Decision Making). Disposition Summary: 11/08/23 21:19 Discharge Ordered Notes: Location: Home sb4 Problem: an ongoing problem sb4 Symptoms: have improved sb4 Condition: Stable sb4 Diagnosis - Chronic chest wall pain sb4 Followup: sb4 - With: Private Physician - When: Tomorrow - Reason: Recheck today's complaints, Re-evaluation by your physician Discharge Instructions: - Discharge Summary Sheet sb4 - Chest Wall Pain, [id number] sb4 Forms: - Patient Portal Instructions sb4 - Leadership Thank You Letter sb4 Signatures: Angelia Jernigan, RN RN Kalli Johnson PAGiseleC PAGiseleC sb4 Uriel Cannon MD MD sp4 Rene Baca RN RN bm8 Ernestine Nielson RN jj7
[2023-11-08] MEDS ORDERED: TRAMADOL HCL 50 MG TAB ONE (21:32)
--- NOTE | 2023-11-08 21:54 | ER ---
Nurse's Notes [facility] Name: Geetha Khan Age: 48 yrs Sex: Female : 1975 Arrival Date: 11/08/2023 Time: 21:11 Bed 5 Private MD: Diagnosis: Chronic chest wall pain Presentation: 11/07 21:17 Chief complaint: Patient states: pain to L chest, shoulder, breast and ribs x 2 weeks ss after a fall. Pt has been seen in ER for fall previously, but states she is here today because her wont give her her pain medications. Pt was seen in ED yesterday for same complaint. Coronavirus screen: Client denies travel out of the [place] in the last 14 days. Ebola Screen: Patient denies exposure to infectious person. Patient denies travel to an Ebola-affected area in the 21 days before illness onset. Initial Sepsis Screen: Does the patient meet any 2 criteria? No. Patient's initial sepsis screen is negative. Does the patient have a suspected source of infection? No. Patient's initial sepsis screen is negative. Risk Assessment: Do you want to hurt yourself or someone else? Patient reports no desire to harm self or others. Onset of symptoms was October 25, 2023. 21:17 Method Of Arrival: Ambulatory ss 21:17 Acuity: CORRINA 4 ss Triage Assessment: 21:25 General: Appears in no apparent distress. Behavior is calm, cooperative. Pain: ss Complains of pain in L chest, L ribs, L shoulder Pain currently is 10 out of 10 on a pain scale. Pain began 2 weeks ago Is continuous. Neuro: Level of Consciousness is awake, alert, obeys commands, Oriented to person, place, time, situation, Speech is normal, L arm paralysis and L leg weakness from previous CVA. Respiratory: Airway is patent Respiratory effort is even, unlabored, Respiratory pattern is regular, symmetrical. GI: No signs and/or symptoms were reported involving the gastrointestinal system. Derm: Skin is pink, warm \T\ dry. normal. Historical: - Allergies: 21:24 Aspirin; ss 21:24 CRANBERRY; ss 21:24 FISH PRODUCT DERIVATIVES; ss 21:24 GRAPEFRUIT; ss 21:24 mushrooms; ss - PMHx: 21:24 Asthma; Cerebrovascular accident; Chronic Chest Pain; COPD; Hypertension; Left arm ss paralysis and left leg weakness from previous CVA; Myocardial infarction; Seizures; Thyroid problem; - Immunization history:: Client reports having NOT received the Covid vaccine. - Infectious Disease History:: Denies. - Social history:: Smoking status: Patient reports the use of cigarette tobacco products, smokes one-half pack cigarettes per day. Screenin:27 Nutritional screening: No deficits noted. Tuberculosis screening: Never had TB. ss 21:33 [facility] ED Fall Risk Assessment (Adult) History of falling in the last 3 months, jj7 including since admission No falls in past 3 months (0 pts) Confusion or Disorientation No (0 pts) Intoxicated or Sedated No (0 pts) Impaired Gait No (0 pts) Mobility Assist Device Used No (0 pt) Altered Elimination No (0 pt) Score/Fall Risk Level 0 - 2 = Low Risk Oriented to surroundings, Maintained a safe environment, Educated pt \T\ family on fall prevention, incl call for assistance when getting out of bed, Assessed \T\ reinforced patient's understanding of fall precautions. [facility] ED Fall Risk Assessment (Adult) History of falling in the last 3 months, including since admission Yes- single mechanical fall (1 pt). Abuse screen: Denies threats or abuse. Assessment: 21:27 Reassessment: SEE TRIAGE ASSESSMENT. ss 21:33 General: Appears in no apparent distress. comfortable, Behavior is calm, cooperative, jj7 appropriate for age. Pain: Complains of pain in chest Pain does not radiate. Cardiovascular: Reports chest pain. Vital Signs: 21:17 BP 120 / 74; Pulse 71; Resp 18; Temp 97.4(TE); Pulse Ox 100% on R/A; Weight 74.84 kg; ss Height 5 ft. 2 in. ; Pain 10/10; 21:40 BP 112 / 73; Pulse 77; Resp 19; Temp 97.9; Pulse Ox 97% ; jj7 21:17 Body Mass Index 30.18 (74.84 kg, 157.48 cm) ss 21:17 Pain Scale: Adult ED Course: 21:11 Patient arrived in ED. jj6 21:14 Kalli Bradshaw PA-C is PHCP. sb4 21:14 Uriel Cannon MD is Attending Physician. sb4 21:24 Triage completed. ss 21:25 Arm band placed on right wrist. ss 21:27 Patient has correct armband on for positive identification. Bed in low position. Call ss light in reach. Side rails up X2. Client placed on continuous cardiac and pulse oximetry monitoring. NIBP monitoring applied. 21:27 No provider procedures requiring assistance completed. Patient did not have IV access ss during this emergency room visit. Patient maintains SpO2 saturation greater than 95% on room air. 21:33 Provided Education on: F/U. jj7 Administered Medications: 21:45 Drug: traMADol PO 50 mg PO once Route: PO; bm8 21:53 Follow up: Response: Medication administered at discharge. ss 21:54 Follow up: Response: No adverse reaction jj7 Medication: 21:33 VIS not applicable for this client. jj7 Outcome: 21:19 Discharge ordered by . srinivasan 21:52 Discharged to home via wheelchair, 21:52 Condition: good 21:52 Discharge instructions given to patient, Instructed on discharge instructions, follow up and referral plans. Demonstrated understanding of instructions, follow-up care, 21:53 Patient left the ED. ss Signatures: Angelia Jernigan, RN RN Bia Garcia jj6 Ernestine Nielson RN RN jj7 Kalli Bradshaw, PA-Kelly PA-Kelly parish4 Rene Baca, RN RN bm8
[2023-11-08 22:22] VITALS: BP 112/73; TEMP 97.9; O2SAT 97
== END 2023-11-08 21:53 | disposition home or self-care (01) ==
LOC: ER 21:11
DX: R07.89 Other chest pain (principal); M25.511 Pain in right shoulder; F17.210 Nicotine dependence, cigarettes, uncomplicated
CPT/HCPCS: 99283

== ENCOUNTER 2023-11-09 20:18 | Emergency (ER) | payer OTHER, SELFPAY ==
[2023-11-09] MEDS ORDERED: HYDROCODONE/APAP 10/325 TAB ONE (21:20)
[2023-11-09] MEDS ORDERED: DIAZEPAM 5 MG TABLET ONE (21:20)
--- NOTE | 2023-11-09 21:24 | EDPHYS ---
Physician Documentation [facility] Name: Geetha Khan Age: 48 yrs Sex: Female : 1975 Arrival Date: 11/09/2023 Time: 20:18 Bed DX1 Private MD: ED Physician Uriel Cannon HPI: 11/08 21:11 This 48 yrs old Female presents to ER via Wheelchair with complaints of Chest sp4 Pain. 11/09 04:32 48-year-old female with past medical history of CVA presents with complaint of sp4 persistent chronic chest pain. Patient is well familiar to me from multiple prior visits to the emergency room for the same complaint. 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 - Infectious Disease History:: Denies. - Social history:: Smoking status: Patient reports the use of cigarette tobacco products, smokes one-half pack cigarettes per day. - Family history:: not pertinent. ROS: 11/09 04:32 Constitutional: Negative for fever, chills, and weight loss, left chest pain positive sp4 anxiety All other systems are negative, Exam: 04:32 Constitutional: This is a well developed, well nourished patient who is awake, alert, sp4 and in no acute distress. There is chronic left-sided hemiparesis from prior CVA Head/Face: Normocephalic, atraumatic. Eyes: Pupils equal round and reactive to light, extra-ocular motions intact. Lids and lashes normal. Conjunctiva and sclera are not injected. Cornea within normal limits. Periorbital areas with no swelling, redness, or edema. ENT: Nares patent. No nasal discharge, no septal abnormalities noted. Tympanic membranes are normal and external auditory canals are clear. Oropharynx with no redness, swelling, or masses, exudates, or evidence of obstruction, uvula midline. Mucous membranes moist. Neck: Trachea midline, no thyromegaly or masses palpated, and no cervical lymphadenopathy. Supple, full range of motion without nuchal rigidity, or vertebral point tenderness. Chest/axilla: Normal chest wall appearance and motion. Nontender with no deformity. No lesions are appreciated. Cardiovascular: Regular rate and rhythm with a normal S1 and S2. No gallops, murmurs, or rubs. Normal PMI, no JVD. No pulse deficits. Respiratory: Lungs have equal breath sounds bilaterally, clear to auscultation and percussion. No rales, rhonchi or wheezes noted. No increased work of breathing, no retractions or nasal flaring. Abdomen/GI: Soft, with normal bowel sounds. No distension or tympany. No guarding or rebound. No evidence of tenderness throughout. Back: No spinal tenderness. No costovertebral tenderness. Skin: Warm, dry with normal turgor. Normal color with no rashes, no lesions, and no evidence of cellulitis. MS/ Extremity: Pulses equal, no cyanosis. Neurovascular intact. Full, normal range of motion. Neuro: Awake and alert, GCS 15, oriented to person, place, time, and situation. Cranial nerves II-XII grossly intact. Motor strength 5/5 in all extremities. Sensory grossly intact. 04:32 ECG was reviewed by the Attending Physician. EKG at 2055, normal sinus rhythm at a rate of 77, left ventricular hypertrophy otherwise normal. Vital Signs: 11/08 20:58 BP 98 / 68; Pulse 78; Resp 16; Temp 97.1; Pulse Ox 100% ; Weight 74.84 kg; Height 5 ft. cm10 2 in. ; Pain 10/10; 20:58 Body Mass Index 30.18 (74.84 kg, 157.48 cm) cm10 20:58 Pain Scale: Adult cm10 MDM: 20:58 Patient medically screened. kb 11/09 04:35 Differential diagnosis: acute pericarditis, anxiety, chest wall pain, esophagitis, sp4 gastritis. The patient was not given aspirin in the Emergency Department. Aspirin not given, patient refused. Data reviewed: vital signs, nurses notes, EKG. ED course: Patient is well familiar to me and at this time she has anxiety and associated chest pain. Patient was treated for anxiety. . EC:32 Rate is 77 beats/min. Rhythm is regular, Normal Sinus Rhythm. QRS [place] is Normal. CO sp4 interval is normal. QRS interval is normal. QT interval is normal. No Q waves. T waves are Normal. No ST changes noted. Clinical impression: No evidence of ischemia. Interpreted by me. Reviewed by me. Administered Medications: 11/08 21:22 Drug: Diazepam PO 5 mg PO once Route: PO; vc1 21:38 Follow up: Response: Medication administered at discharge. vc1 21:23 Drug: [place] PO 10 mg-325 mg 1 tabs PO once Route: PO; vc1 21:38 Follow up: Response: Medication administered at discharge. vc1 Disposition: 11/09 04:36 Chart complete. sp4 Disposition Summary: 11/09/23 21:24 Discharge Ordered Notes: Location: Home sp4 Problem: new sp4 Symptoms: have improved sp4 Condition: Stable sp4 Diagnosis - Chest pain, unspecified sp4 Followup: sp4 - With: Private Physician - When: 7 - 10 days - Reason: Recheck today's complaints Discharge Instructions: - Discharge Summary Sheet sp4 - Nonspecific Chest Pain, Adult sp4 Forms: - Patient Portal Instructions sp4 Prescriptions: - Valium 5 mg Oral tablet - take 1 tablet ORAL route once daily As needed PRN anxiety; 10 tablet; Refills: sp4 0, Product Selection Permitted Signatures: Kathy Kerns FNP-C FNP-Syeda Overton RN RN vc1 Uriel Cannon MD MD sp4 Kelsey Khan RN RN cm10
--- NOTE | 2023-11-09 21:24 | ER ---
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 cm10 Coronavirus screen: Client denies travel out of the [place] in the last 14 days. At this time, the client does not indicate any symptoms associated with coronavirus-19. Ebola Screen: Patient denies travel to an Ebola-affected area in the 21 days before illness onset. No symptoms or risks identified at this time. Initial Sepsis Screen: Does the patient meet any 2 criteria? No. Patient's initial sepsis screen is negative. Does the patient have a suspected source of infection? No. Patient's initial sepsis screen is negative. Risk Assessment: Do you want to hurt yourself or someone else? Patient reports no desire to harm self or others. Onset of symptoms was November 09, 2023. 20:58 Method Of Arrival: Wheelchair cm10 20:58 Acuity: CORRINA 2 cm10 Triage Assessment: 20:59 General: Appears in no apparent distress. comfortable, Behavior is calm, cooperative. cm10 Neuro: No deficits noted. Level of Consciousness is awake, alert, obeys commands, Oriented to person, place, time, situation, Appropriate for age. 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 - Infectious Disease History:: Denies. - Social history:: Smoking status: Patient reports the use of cigarette tobacco products, smokes one-half pack cigarettes per day. - Family history:: not pertinent. Screenin:34 [facility] ED Fall Risk Assessment (Adult) History of falling in the last 3 months, vc1 including since admission Yes- fall prone (multiple falls) (3 pts) Confusion or Disorientation No (0 pts) Intoxicated or Sedated No (0 pts) Impaired Gait Yes (1 pt) Mobility Assist Device Used Yes (1 pt) Altered Elimination Yes (1 pt) Score/Fall Risk Level 3 or more points = High Risk Oriented to surroundings, Maintained a safe environment, Educated pt \T\ family on fall prevention, incl call for assistance when getting out of bed, Hourly rounding (assess needs \T\ fall precautionary measures) done. Abuse screen: Denies threats or abuse. Nutritional screening: No deficits noted. Tuberculosis screening: No symptoms or risk factors identified. Assessment: 21:35 General: Appears in no apparent distress. comfortable, unkempt, Behavior is calm, vc1 cooperative, appropriate for age. Pain: Complains of pain in chest Pain does not radiate. Pain began suddenly, Aggravated by increased activity, repositioning. Neuro: Level of Consciousness is awake, alert, obeys commands, Oriented to person, place, time, situation, Appropriate for age. Cardiovascular: Reports chest pain, Heart tones S1 S2 present Capillary refill < 3 seconds Patient's skin is warm and dry. Respiratory: Airway is patent Respiratory effort is even, unlabored, Respiratory pattern is regular, symmetrical, Breath sounds are clear bilaterally. GI: Abdomen is flat, non-distended. : Reports incontinence. Vital Signs: 20:58 BP 98 / 68; Pulse 78; Resp 16; Temp 97.1; Pulse Ox 100% ; Weight 74.84 kg; Height 5 ft. cm10 2 in. ; Pain 10/10; 20:58 Body Mass Index 30.18 (74.84 kg, 157.48 cm) cm10 20:58 Pain Scale: Adult cm10 ED Course: 20:23 Patient arrived in ED. mr 20:59 Triage completed. cm10 20:59 Arm band placed on Patient placed in waiting room. EKG completed in triage. Results cm10 shown to . 21:00 EKG done, by ED staff, reviewed by Uriel Cannon MD. cm10 21:11 Uriel Cannon MD is Attending Physician. sp4 21:35 No provider procedures requiring assistance completed. Patient did not have IV access vc1 during this emergency room visit. Patient maintains SpO2 saturation greater than 95% on room air. Administered Medications: 21:22 Drug: Diazepam PO 5 mg PO once Route: PO; vc1 21:38 Follow up: Response: Medication administered at discharge. vc1 21:23 Drug: [place] PO 10 mg-325 mg 1 tabs PO once Route: PO; vc1 21:38 Follow up: Response: Medication administered at discharge. vc1 Medication: 21:38 VIS not applicable for this client. vc1 Outcome: 21:24 Discharge ordered by . laurie 21:37 Discharged to home via wheelchair, with significant other, vc1 21:37 Condition: good 21:37 Discharge instructions given to patient, Instructed on discharge instructions, follow up and referral plans. medication usage, Demonstrated understanding of instructions, follow-up care, medications, Prescriptions given X 1, 21:38 Patient left the ED. vc1 Signatures: Clair Marina Reg Reg mr Calcote, Vanessa, RN RN vc1 Uriel Cannon MD MD sp4 Kelsey Khan RN RN cm10
== END 2023-11-09 21:38 | disposition home or self-care (01) ==
LOC: ER 20:18
DX: R07.9 Chest pain, unspecified (principal); I10 Essential (primary) hypertension; F17.210 Nicotine dependence, cigarettes, uncomplicated; Z86.73 Personal history of transient ischemic attack (TIA), and cerebral infarction without residual deficits
CPT/HCPCS: 99284

== ENCOUNTER 2023-11-10 16:37 | Emergency (ER) | payer OTHER, SELFPAY ==
[2023-11-10] MEDS ORDERED: NA CHLORIDE 0.9% 1,000 ML ONE (19:12)
[2023-11-10 19:14] LABS: Absolute Monocytes 1.1 K/uL (0.1-1.3); Absolute Neutrophil 10.2 K/uL (1.8-8.0); Basophils % 0.2 % (0-1.3); Eosinophils % 0.3 % (0-4.4); Hematocrit 37.9 % (36.0-45.0); Hemoglobin 12.7 g/dL (12.0-15.0); Lymphocytes % 15.3 % (15.3-44.8); MCHC 33.6 g/dL (32.0-36.0); MCV 104.3 fL (80-100); MPV 6.8 fL (7.6-11.3); Neutrophils % 76.2 % (41.7-73.7); Nucleated Red Blood Cells % 0.1 % (0-0); Platelets 217 thou/uL (152-406); RBC Red Blood Cell Count 3.63 M/uL (3.86-4.86); Red Cell Distribution Width 14.8 % (12.1-15.2)
[2023-11-10 19:42] LABS: Albumin 3.6 g/dL (3.4-5.0); Albumin/Globulin Ratio 1.2 (1.1-1.8); Anion Gap 8.9 mEq/L (5.0-15.0); Bilirubin Total 0.4 mg/dL (0.2-1.0); Globulin 3.1 g/dL (2.3-3.5); Potassium 3.9 mEq/L (3.5-5.1); Protein, Total 6.7 g/dL (6.4-8.2)
[2023-11-10] MEDS ORDERED: ACETAMINOPHEN 325 MG TABLET ONE (22:12)
[2023-11-10 22:20] LABS: Specific Gravity 1.018 (1.005-1.030)
[2023-11-10 22:22] LABS: Specific Gravity 1.017 (1.005-1.030); Sqamous Epithelial <5 /HPF (None Seen); Urine Bacteria 20-50 /HPF (<20); Urine Bilirubin NEGATIVE (Negative); Urine Blood Negative (Negative); Urine Clarity Extremely Turbid (Clear); Urine Color Light-Yellow (Yellow); Urine Culture Reflex Order REFLEXED; Urine Glucose NEGATIVE (Negative); Urine Ketones NEGATIVE (Negative); Urine Microscopic Reflex YN ORDER UMIC; Urine Mucus Slight /HPF (None Seen); Urine Nitrite NEGATIVE (Negative); Urine Protein TRACE (Negative); Urine RBC <5 /HPF (None Seen); Urine Urobilinogen Normal (Normal); Urine WBC 20-50 /HPF (<5)
--- NOTE | 2023-11-10 22:39 | EDPHYS ---
Physician Documentation [facility] Name: Geetha Khan Age: 48 yrs Sex: Female : 1975 Arrival Date: 11/10/2023 Time: 16:37 Bed 6 Private MD: ED Physician Sylvia Barker HPI: 11/09 17:32 This 48 yrs old Female presents to ER via Unassigned with complaints of Constipation. kb 17:32 Pt is a 48 year old female who presents for abd pain that started this morning. Reports kb last BM was a week ago. States she also developed weakness and dizziness while sitting in the lobby. States "when I get hot I get weak and dizzy." . 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 - Infectious Disease History:: Denies. - Social history:: Smoking status: Patient reports the use of cigarette tobacco products. ROS: 17:32 Constitutional: As per HPI kb Exam: 17:32 Constitutional: This is a well developed, well nourished patient who is awake, alert, kb and in no acute distress. Head/Face: Normocephalic, atraumatic. ENT: Moist Mucous membranes Cardiovascular: Regular rate Respiratory: Respirations even and unlabored. No increased work of breathing. Talking in full sentences Skin: Warm, dry with normal turgor. Normal color. MS/ Extremity: Pulses equal, no cyanosis. Neurovascular intact. Full, normal range of motion. Neuro: Awake and alert, GCS 15, oriented to person, place, time, and situation. Moves all extremities. Normal gait. 17:32 Abdomen/GI: Inspection: abdomen appears normal, Bowel sounds: normal, Palpation: soft, in all quadrants, mild abdominal tenderness, in all quadrants, Vital Signs: 16:37 BP 99 / 70; Pulse 87; Resp 16 S; Temp 97(TE); Pulse Ox 100% on R/A; aa5 18:46 BP 95 / 61; Pulse 73; Resp 18; Temp 98; Pulse Ox 100% on R/A; kj2 21:23 BP 102 / 60; Pulse 71; Resp 18; Pulse Ox 100% ; kj2 22:44 BP 100 / 66; Pulse 86; Resp 18; Temp 98; Pulse Ox 99% ; Pain 0/10; bm8 22:44 Pain Scale: Adult bm8 [place] Coma Score: 22:44 Eye Response: spontaneous(4). Motor Response: obeys commands(6). Verbal Response: bm8 oriented(5). Total: 15. MDM: 17:32 Patient medically screened. kb 17:32 Differential diagnosis: constipation, bowel obstruction. Data reviewed: vital signs, kb nurses notes. Historians other than the Patient: EMS: [facility]. 23:16 ED course: Pt requested to be discharged home prior to CT scan. Pt came in for kb constipation and was able to have a large BM so is feeling better. . 11/09 17:35 Order name: CBC with Diff; Complete Time: 19:32 kb 11/09 17:35 Order name: CMP; Complete Time: 19:43 kb 11/09 17:35 Order name: Lipase; Complete Time: 19:43 kb 11/09 17:35 Order name: Urinalysis w/ reflexes; Complete Time: 22:26 kb 11/09 17:52 Order name: Test, Urine; Complete Time: 22:23 kb 11/09 22:26 Order name: Urine Culture EDMN 11/09 17:35 Order name: CT Abd/Pelvis - Without Contrast 11/09 17:35 Order name: IV Saline Lock; Complete Time: 19:11 kb 11/09 17:35 Order name: Labs collected and sent; Complete Time: 19:11 kb Administered Medications: 19:14 Drug: NS 0.9% IV 1000 ml IV at 1 bolus Per protocol; 1000 mL bolus Route: IV; Rate: 1 cm10 bolus; Site: right wrist; 22:14 Follow up: Response: No adverse reaction; IV Status: Completed infusion; IV Intake: cm10 1000ml 22:14 Drug: Acetaminophen PO 650 mg PO once Route: PO; cm10 22:46 Follow up: Response: No adverse reaction bm8 Disposition Summary: 11/10/23 22:39 Discharge Ordered Notes: Location: Home kb Condition: Stable kb Diagnosis - Constipation kb Followup: kb - With: Emergency Department - When: As needed - Reason: Worsening of condition Followup: kb - With: Private Physician - When: 2 - 3 days - Reason: Recheck today's complaints, Continuance of care, Re-evaluation by your physician Discharge Instructions: - Discharge Summary Sheet kb - Constipation, Adult, [id number] kb Forms: - Medication Reconciliation Form kb - Antibiotic Education kb - Prescription Opioid Use kb - Patient Portal Instructions kb - Leadership Thank You Letter kb Signatures: Dispatcher [employer] EDMS Kathy Kerns, EMERGENCY DEPARTMENT AIDE-C EMERGENCY DEPARTMENT AIDE-Rosemarie Logan RN RN aa5 Kelsey Khan RN RN cm10 Rene Baca RN bm8
--- NOTE | 2023-11-10 22:39 | ER ---
Nurse's Notes [facility] Name: Geetha Khan Age: 48 yrs Sex: Female : 1975 Arrival Date: 11/10/2023 Time: 16:37 Bed 6 Private MD: Diagnosis: Constipation Presentation: 11/09 16:37 Coronavirus screen: At this time, the client does not indicate any symptoms associated aa5 with coronavirus-19. Ebola Screen: Patient denies travel to an Ebola-affected area in the 21 days before illness onset. Initial Sepsis Screen: Does the patient meet any 2 criteria? No. Patient's initial sepsis screen is negative. Does the patient have a suspected source of infection? No. Patient's initial sepsis screen is negative. Risk Assessment: Do you want to hurt yourself or someone else? Patient reports no desire to harm self or others. 16:37 Method Of Arrival: EMS: [facility] aa5 16:37 Acuity: CORRINA 3 aa5 16:37 Chief complaint: EMS states: constipation x 1 week ago, reports abd pain today. Onset aa5 of symptoms was November 10, 2023. 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 - Infectious Disease History:: Denies. - Social history:: Smoking status: Patient reports the use of cigarette tobacco products. Screenin:49 [facility] ED Fall Risk Assessment (Adult) History of falling in the last 3 months, kj2 including since admission No falls in past 3 months (0 pts) Confusion or Disorientation No (0 pts) Intoxicated or Sedated No (0 pts) Impaired Gait Yes (1 pt) Mobility Assist Device Used Yes (1 pt) Altered Elimination Yes (1 pt) Score/Fall Risk Level 0 - 2 = Low Risk Maintained a safe environment, Hourly rounding (assess needs \T\ fall precautionary measures) done. Abuse screen: Denies threats or abuse. Denies injuries from another. Nutritional screening: No deficits noted. Tuberculosis screening: No symptoms or risk factors identified. Assessment: 18:47 General: Appears in no apparent distress. Behavior is calm, cooperative. Pain: kj2 Complains of pain in abdomen Pain currently is 5 out of 10 on a pain scale. Pain began 2-3 days ago. Neuro: Level of Consciousness is awake, alert, obeys commands, Oriented to person, place, situation. Cardiovascular: Patient's skin is warm and dry. Respiratory: Airway is patent Respiratory effort is even, unlabored. GI: Bowel sounds. : patient is incontinent. 22:01 Reassessment: Patient appears in no apparent distress at this time. No changes from cm10 previously documented assessment. Patient and/or family updated on plan of care and expected duration. Pain level reassessed. Patient is alert, oriented x 3, equal unlabored respirations, skin warm/dry/pink. 22:44 Reassessment: pt stated that she did not wish to stay for anymore results and she is bm8 ready to go home. Vital Signs: 16:37 BP 99 / 70; Pulse 87; Resp 16 S; Temp 97(TE); Pulse Ox 100% on R/A; aa5 18:46 BP 95 / 61; Pulse 73; Resp 18; Temp 98; Pulse Ox 100% on R/A; kj2 21:23 BP 102 / 60; Pulse 71; Resp 18; Pulse Ox 100% ; kj2 22:44 BP 100 / 66; Pulse 86; Resp 18; Temp 98; Pulse Ox 99% ; Pain 0/10; bm8 22:44 Pain Scale: Adult bm8 [place] Coma Score: 22:44 Eye Response: spontaneous(4). Motor Response: obeys commands(6). Verbal Response: bm8 oriented(5). Total: 15. ED Course: 16:37 Arm band placed on. aa5 16:40 Patient arrived in ED. ra3 17:31 Kathy Kerns FNP-C is [facility]. kb 17:31 Sylvia Barker MD is Attending Physician. kb 17:34 Triage completed. aa5 18:27 Patient has correct armband on for positive identification. Bed in low position. Call kc6 light in reach. Side rails up X2. Pulse ox on. NIBP on. Door closed. Noise minimized. Lights dimmed. Warm blanket given. Pillow given. 18:28 Repositioned patient. Cleaned of incontinence. kc6 18:46 Hortencia Maldonado, RN is Primary Nurse. kj2 18:49 Missed attempt(s): 22 gauge in right antecubital area. kj2 18:50 Provided Education on: call light, fall precautions. kj2 19:00 Inserted saline lock: 22 gauge in right wrist, using aseptic technique. Flushed with 10 cm10 mL NS. 19:11 Initial lab(s) drawn, by me, sent to lab. cm10 21:58 Test, Urine Sent. cm10 21:59 Urinalysis w/ reflexes Sent. cm10 22:00 Assisted with bedpan. Repositioned patient. Cleaned of incontinence. Linen changed. cm10 22:36 CT Abd/Pelvis - Without Contrast In Process Unspecified. EDMS 22:44 No provider procedures requiring assistance completed. IV discontinued, intact, bm8 bleeding controlled, No redness/swelling at site. Pressure dressing applied. Administered Medications: 19:14 Drug: NS 0.9% IV 1000 ml IV at 1 bolus Per protocol; 1000 mL bolus Route: IV; Rate: 1 cm10 bolus; Site: right wrist; 22:14 Follow up: Response: No adverse reaction; IV Status: Completed infusion; IV Intake: cm10 1000ml 22:14 Drug: Acetaminophen PO 650 mg PO once Route: PO; cm10 22:46 Follow up: Response: No adverse reaction bm8 Medication: 18:50 VIS not applicable for this client. kj2 Intake: 22:14 IV: 1000ml; Total: 1000ml. cm10 Outcome: 22:39 Discharge ordered by . blake 22:44 Discharged to home via wheelchair, bm8 22:44 Condition: stable 22:44 Discharge instructions given to patient, family, Instructed on discharge instructions, follow up and referral plans. safety practices, Demonstrated understanding of instructions, follow-up care, medications, 22:46 Patient left the ED. bm8 Signatures: Dispatcher [employer] EDMS Kathy Kerns, OPERATING SYSTEMS PROGRAMMER-C OPERATING SYSTEMS PROGRAMMER-Rosemarie Logan, RN RN [email or web address] Cate Melchor RN RN kc6 Kelsey Khan, RN RN cm10 Renea Gallardo 3 Rene Baca RN RN bm8 Joel, Ohrtencia, RN RN kj2
[2023-11-10 23:09] VITALS: TEMP 98
[2023-11-10 23:12] VITALS: BP 100/66; O2SAT 99
--- NOTE | 2023-11-11 14:42 | RAD REPORT ---
EXAM DESCRIPTION: CT - Abdomen Pelvis Wo Contrast - 11/11/2023 5:53 am CLINICAL HISTORY: Abd pain;Constipation COMPARISON: None Available. TECHNIQUE: CT of the abdomen and pelvis without IV contrast. Evaluation of the solid organs and vasc ulature is suboptimal due to lack of IV contrast. This exam was performed according to our department al dose-optimization program, which includes automated exposure control, adjustment of the mA and/or kV according to patient size and/or use of iterative reconstruction technique. FINDINGS: Lung Bases: The visualized lung bases are clear. Abdomen: Liver: The mildly lobulated contour, more pronounced inferiorly. No obvious mass within the limitatio ns of noncontrast technique. Gallbladder: Surgically absent. Spleen, Pancreas, and Adrenal Glands: The spleen, pancreas, and adrenal glands are unremarkable. Kidneys: Asymmetric right renal atrophy. No obstructing ureteral calculi. No hydronephrosis. Vasculature: The aorta and IVC have normal caliber and position. Stomach: The stomach and duodenum have normal course. Other: No free intraperitoneal air. No free fluid or lymphadenopathy. Pelvis: Bladder: Urinary bladder is unremarkable. Bowel: Mild circumferential wall thickening involving much of the colon, more pronounced in the asc ending and distal descending colon. Wall thickening and adjacent fat stranding is also noted at the l evel the rectum. There is moderate to large amount of stool in the rectum. No bowel obstruction. Appendix: Normal appendix. Pelvis: No suspicious mass. Bones: No destructive bone lesions identified. Chronic appearing left rib fractures. IMPRESSION: 1. Findings suspicious for colitis, most pronounced in the ascending and distal descen ding colon. There is also wall thickening and adjacent fat stranding at the level the rectum which co ntains moderate to large amount of stool. Findings could also be due to stercoral colitis/proctitis. 2. Mildly lobulated contour of the liver which may reflect early changes of cirrhosis. 3. Asymmetric right renal atrophy. Electronically signed by: Radha Rodney MD 11/10/2023 11:02 PM CDT Due to temporary technical issues with the PACS/Fluency reporting system, reports are being signed by the in house radiologist without review as a courtesy to ensure prompt reporting. The interpreting r adiologist is fully responsible for the content of the report.
--- NOTE | 2023-11-12 12:46 | EKG ---
Test Date: 2023-11-09 Test Time: 20:56:09 Production Control Pegboard Clerk: JEANNA MEASUREMENT RESULTS: Intervals: Rate: 77 MN: 178 QRSD: 86 QT: 384 QTc: 434 [place]: P: 60 MN: 178 QRS: 2 T: 134 INTERPRETIVE STATEMENTS: Normal sinus rhythm Possible Left atrial enlargement Left ventricular hypertrophy with repolarization abnormality Abnormal ECG Compared to ECG 11/07/2023 18:41:02 No significant changes Electronically Signed On 11-12-23 12:43:23 CDT by Alan Garay
== END 2023-11-10 22:46 | disposition home or self-care (01) ==
LOC: ER 16:37
DX: K59.00 Constipation, unspecified (principal)
CPT/HCPCS: 36415; 74176; 80053; 81001; 81025; 83690; 85025; 87077; 87086; 87088; 87186; 93005; 96360; 96361; 99285; J7030

== ENCOUNTER 2023-11-11 15:48 | Emergency (ER) | payer OTHER, SELFPAY ==
[2023-11-11] MEDS ORDERED: TRAMADOL HCL 50 MG TAB ONE (16:50)
[2023-11-11] MEDS ORDERED: DIAZEPAM 5 MG TABLET ONE (16:51)
--- NOTE | 2023-11-11 17:28 | EDPHYS ---
Physician Documentation [facility] Name: Geetha Khan Age: 48 yrs Sex: Female : 1975 Arrival Date: 11/11/2023 Time: 15:48 Bed 8 Private MD: ED Physician Russell Rodriguez HPI: 11/10 16:00 This 48 yrs old Female presents to ER via EMS with complaints of Chest Pain. cp 16:00 The patient or guardian reports chest pain that is located primarily in the anterior cp chest wall, bilaterally. Onset: today. The pain does not radiate. Associated signs and symptoms: Pertinent negatives: abdominal pain, cough, lower extremity pain, nausea, shortness of breath, vomiting. The chest pain is described as constant. Duration: The patient or guardian reports a single episode, that is still ongoing. The patient has experienced similar episodes in the past, chronically, today's symptoms are similar, to when the patient was apparently diagnosed with chronic pain. 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 - Infectious Disease History:: Denies. - Social history:: Smoking status: Patient denies any tobacco usage or history of. ROS: 16:05 Constitutional: Negative for body aches, chills, fever, poor PO intake, cp 16:05 Cardiovascular: Positive for chest pain, Negative for palpitations, cp 16:05 Eyes: Negative for injury, pain, redness, and discharge, cp 16:05 ENT: Negative for drainage from ear(s), ear pain, sore throat, difficulty swallowing, difficulty handling secretions, 16:05 Respiratory: Negative for cough, shortness of breath, wheezing, 16:05 Abdomen/GI: Negative for abdominal pain, vomiting, diarrhea, constipation, 16:05 Back: Negative for radiated pain, 16:05 Neuro: Negative for altered mental status, headache, syncope, 16:05 All other systems are negative, cp Exam: 16:10 Constitutional: The patient appears in no acute distress, alert, awake, cp non-diaphoretic, non-toxic, well developed, well nourished, 16:10 Head/Face: Normocephalic, atraumatic. cp 16:10 Eyes: Periorbital structures: appear normal, Conjunctiva: normal, no exudate, no injection, Sclera: no appreciated abnormality, Lids and lashes: appear normal, bilaterally, 16:10 ENT: External ear(s): are unremarkable, Nose: is normal, Mouth: Lips: moist, Oral mucosa: pink and intact, moist, Posterior pharynx: is normal, airway is patent, no erythema, no exudate, 16:10 Chest/axilla: Inspection: normal, Palpation: is normal, no crepitus, no tenderness, 16:10 Cardiovascular: Rate: normal, Rhythm: regular, Edema: ankle edema, that is mild, JVD: is not appreciated, 16:10 Respiratory: the patient does not display signs of respiratory distress, Respirations: normal, no use of accessory muscles, no retractions, Breath sounds: are clear throughout, no decreased breath sounds, no stridor, no wheezing, 16:10 Abdomen/GI: Inspection: abdomen appears normal, Palpation: abdomen is soft and non-tender, in all quadrants, 16:10 Back: pain, is absent, 16:10 Neuro: Orientation: is normal, Mentation: is normal, Motor: no acute changes, Sensation: no acute changes, 16:22 ECG was reviewed by the Attending Physician. cp Vital Signs: 16:02 BP 93 / 65; Pulse 84; Resp 15; Temp 98.1; Pulse Ox 99% ; dd2 16:30 BP 99 / 69; Pulse 76; Resp 15; Pulse Ox 97% ; dd2 MDM: 17:27 Patient medically screened. cp 17:27 Data reviewed: vital signs, nurses notes, lab test result(s), EKG, and as a result, I cp will discharge patient. 17:27 Differential diagnosis: abnormal EKG, acute myocardial infarction, anxiety, chest wall cp pain, pleurisy, pneumonia, pneumothorax, pulmonary embolus, stable angina, unstable angina, chronic pain. I considered the following discharge prescriptions or medication management in the emergency department Medications were administered in the Emergency Department. See MAR. Independent interpretation of the following test(s) in the Emergency Department EKG: See my EKG interpretation above. Care significantly affected by the following chronic conditions: Hypertension, Chronic Obstructive Pulmonary Disease. Counseling: I had a detailed discussion with the patient and/or guardian regarding the historical points, exam findings, and any diagnostic results supporting the discharge/admit diagnosis, lab results, to return to the emergency department if symptoms worsen or persist or if there are any questions or concerns that arise at home. Response to treatment: the patient's symptoms have markedly improved after treatment, and as a result, I will discharge patient. Special discussion: Based on the patient's history, exam, and Dx evaluation, there is no indication for emergent intervention or inpatient Tx. It is understood by the patient/guardian that if the Sx's persist or worsen they need to return immediately for re-evaluation. 11/10 15:59 Order name: Troponin High Sensitivity; Complete Time: 17:17 cp 11/10 15:57 Order name: EKG; Complete Time: 15:57 cp 11/10 15:57 Order name: EKG - Nurse/Tech; Complete Time: 16:27 cp EC:22 Rate is 72 beats/min. Rhythm is regular. [place] interval is normal. QRS interval is normal. cp QT interval is normal. T waves are Inverted in leads I, aVL. Interpreted by me. Reviewed by me. Administered Medications: 16:51 Drug: traMADol PO 50 mg PO once Route: PO; dd2 16:52 Drug: Diazepam PO 5 mg PO once Route: PO; dd2 Disposition Summary: 11/11/23 17:27 Discharge Ordered Notes: Location: Home cp Problem: new cp Symptoms: have improved cp Condition: Stable cp Diagnosis - Chest pain, unspecified cp Followup: cp - With: Private Physician - When: 1 - 2 days - Reason: Recheck today's complaints Discharge Instructions: - Discharge Summary Sheet cp - Nonspecific Chest Pain, Adult cp Forms: - Medication Reconciliation Form cp - Antibiotic Education cp - Prescription Opioid Use cp - Patient Portal Instructions cp - Leadership Thank You Letter cp Addendum: 11/15/2023 07:45 I was immediately available for consultation during this patient's visit. I did not e c2 personally see the patient or discuss the patient with the SEGUN. . Signatures: Dispatcher [employer] Michael Bates PA PA cp Corral, Edwin, MD MD ec2 MAGGIE GIBSON RN RN dd2
--- NOTE | 2023-11-11 17:28 | ER ---
Nurse's Notes [facility] Name: Geetha Khan Age: 48 yrs Sex: Female : 1975 Arrival Date: 11/11/2023 Time: 15:48 Bed 8 Private MD: Diagnosis: Chest pain, unspecified Presentation: 11/10 16:02 Chief complaint: Patient states: Chest pain. Coronavirus screen: At this time, the dd2 client does not indicate any symptoms associated with coronavirus-19. Ebola Screen: No symptoms or risks identified at this time. Initial Sepsis Screen: Does the patient meet any 2 criteria? No. Patient's initial sepsis screen is negative. Does the patient have a suspected source of infection? No. Patient's initial sepsis screen is negative. Risk Assessment: Do you want to hurt yourself or someone else? Patient reports no desire to harm self or others. Onset of symptoms was November 11, 2023. Care prior to arrival: None. 16:02 Method Of Arrival: EMS: [facility] dd2 16:02 Acuity: CORRINA 3 dd2 Triage Assessment: 16:03 General: Appears in no apparent distress. Behavior is calm, cooperative. Pain: dd2 Complains of pain in chest Pain began suddenly, 30 min ago. 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 - Infectious Disease History:: Denies. - Social history:: Smoking status: Patient denies any tobacco usage or history of. Screenin:01 [facility] ED Fall Risk Assessment (Adult) History of falling in the last 3 months, dd2 including since admission No falls in past 3 months (0 pts) Confusion or Disorientation No (0 pts) Intoxicated or Sedated No (0 pts) Impaired Gait Yes (1 pt) Mobility Assist Device Used No (0 pt) Altered Elimination No (0 pt) Score/Fall Risk Level 0 - 2 = Low Risk Oriented to surroundings, Maintained a safe environment, Hourly rounding (assess needs \T\ fall precautionary measures) done. Abuse screen: Denies threats or abuse. Nutritional screening: No deficits noted. Tuberculosis screening: No symptoms or risk factors identified. Assessment: 17:01 General: Appears in no apparent distress. Behavior is calm, cooperative. Pain: dd2 Complains of pain in chest Pain began 2 hours ago. Neuro:. Neuro: Paralysis. Cardiovascular: Reports chest pain, Heart tones S1 S2 Rhythm is sinus rhythm. Respiratory: No deficits noted. GI: No deficits noted. : No deficits noted. EENT: No deficits noted. Derm: No deficits noted. Musculoskeletal: No deficits noted. Vital Signs: 16:02 BP 93 / 65; Pulse 84; Resp 15; Temp 98.1; Pulse Ox 99% ; dd2 16:30 BP 99 / 69; Pulse 76; Resp 15; Pulse Ox 97% ; dd2 ED Course: 15:52 Patient arrived in ED. ec2 15:55 Michael Nguyen PA is PHCP. cp 15:55 Russell Rodriguez MD is Attending Physician. cp 15:58 MAGGIE GIBSON, YANETH is Primary Nurse. dd2 16:03 Triage completed. dd2 16:03 Arm band placed on right wrist. Patient placed in an exam room, on a stretcher, on dd2 agricultural loan officer, on pulse oximetry. 16:49 Troponin High Sensitivity Sent. dd2 17:01 Patient has correct armband on for positive identification. Bed in low position. Call dd2 light in reach. Side rails up X2. Provided Education on: lab, call light. Client placed on continuous cardiac and pulse oximetry monitoring. NIBP monitoring applied. pump press operator on. Door closed. Warm blanket given. 17:01 No provider procedures requiring assistance completed. Patient did not have IV access dd2 during this emergency room visit. Administered Medications: 16:51 Drug: traMADol PO 50 mg PO once Route: PO; dd2 16:52 Drug: Diazepam PO 5 mg PO once Route: PO; dd2 Medication: 17:01 VIS not applicable for this client. dd2 Outcome: 17:27 Discharge ordered by . cp 18:01 Discharged to home via wheelchair, dd2 18:01 Condition: stable 18:01 Discharge instructions given to patient, Instructed on discharge instructions, follow up and referral plans. Demonstrated understanding of instructions, follow-up care, 18:02 Patient left the ED. dd2 Signatures: Michael Nguyen PA PA cp Corral, Edwin, MD MD ec2 MAGGIE GIBSON RN RN dd2
[2023-11-11 18:27] VITALS: TEMP 98.1
[2023-11-11 18:29] VITALS: BP 99/69; O2SAT 97
--- NOTE | 2023-11-12 12:41 | EKG ---
Test Date: 2023-11-11 Test Time: 16:15:18 [facility] Center Administrator: ARIE MEASUREMENT RESULTS: Intervals: Rate: 72 RI: 176 QRSD: 90 QT: 400 QTc: 438 [place]: P: 63 RI: 176 QRS: 27 T: 131 INTERPRETIVE STATEMENTS: Normal sinus rhythm Left ventricular hypertrophy with repolarization abnormality Abnormal ECG Compared to ECG 11/09/2023 20:56:09 No significant changes Electronically Signed On 11-12-23 12:38:29 CDT by Alan Garay
== END 2023-11-11 18:02 | disposition home or self-care (01) ==
LOC: ER 15:48
DX: R07.89 Other chest pain (principal)
CPT/HCPCS: 36415; 84484; 93005; 99284

== ENCOUNTER 2023-11-12 22:22 | Inpatient (IN) | payer OTHER, SELFPAY ==
[2023-11-12] MEDS ORDERED: NA CHLORIDE 0.9% 1,000 ML ONE ×2 (22:43→22:49)
[2023-11-12] MEDS ORDERED: NACHLORIDE 0.45% 0 ML IV ONE (22:43)
[2023-11-12 22:59] LABS: PT Prothrombin Time 10.7 SECONDS (9.4-12.5); Protime INR 0.95
[2023-11-12 23:13] LABS: Absolute Eosinophils 0.2 K/uL (0-0.5); Absolute Lymphocytes (CBC) 1.9 K/uL (0.7-4.9); Absolute Monocytes 0.6 K/uL (0.1-1.3); Absolute Neutrophil 4.8 K/uL (1.8-8.0); Basophils % 0.4 % (0-1.3); Eosinophils % 2.3 % (0-4.4); Hemoglobin 10.7 g/dL (12.0-15.0); Lymphocytes % 25.6 % (15.3-44.8); MCH 35.6 pg (27.0-35.0); MCHC 34.6 g/dL (32.0-36.0); MCV 102.9 fL (80-100); Monocytes % 7.4 % (3.3-12.3); Neutrophils % 64.3 % (41.7-73.7); Nucleated Red Blood Cells % 0.1 % (0-0); Platelets 186 thou/uL (152-406); RBC Red Blood Cell Count 3.01 M/uL (3.86-4.86); Red Cell Distribution Width 14.5 % (12.1-15.2)
[2023-11-12 23:19] LABS: ALT/SGPT 22 U/L (13-56); AST/SGOT 12 U/L (15-37); Albumin 3.1 g/dL (3.4-5.0); Albumin/Globulin Ratio 1.1 (1.1-1.8); Alkaline Phosphatase 189 U/L (45-117); Anion Gap 8.2 mEq/L (5.0-15.0); BUN Blood Urea Nitrogen 20 mg/dL (7-18); Bicarbonate 23 mEq/L (21-32); Bilirubin Total 0.2 mg/dL (0.2-1.0); Globulin 2.7 g/dL (2.3-3.5); Glomerular Filtration Rate 41 ml/min (=/>90); Glucose Level 73 mg/dL (74-106); Lipase 696 U/L (13-75); NT PRO-BNP 1457 pg/mL (<125); Potassium 3.2 mEq/L (3.5-5.1); Protein, Total 5.8 g/dL (6.4-8.2); Sodium Level 135 mEq/L (136-145); Troponin High Sensitivity 39.9 pg/mL (<58.9)
[2023-11-12 23:22] LABS: Bilirubin Direct < 0.2 mg/dL (0-0.2)
--- NOTE | 2023-11-13 00:32 | EDPHYS ---
Physician Documentation [facility] Name: Geetha Khan Age: 48 yrs Sex: Female : 1975 Arrival Date: 11/12/2023 Time: 22:22 Bed 5 Private MD: ED Physician Michael Grimm HPI: 11/12 00:13 This 48 yrs old Female presents to ER via EMS with complaints of Chest Pain > juan diego 31 y/o, Anxiety. 00:13 The patient or guardian reports chest pain that is located primarily in the anterior juan diego chest wall, bilaterally. Onset: 1 day(s) ago. The pain does not radiate. Associated signs and symptoms: The patient has no apparent associated signs or symptoms. The chest pain is described as aching. Duration: The patient or guardian reports a single episode, that is now resolved. Modifying factors: The symptoms are alleviated by pain meds, bp meds. Severity of pain: At its worst the pain was mild in the emergency department the pain is unchanged. The patient has experienced similar episodes in the past, multiple times. 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 - Infectious Disease History:: Denies. - Social history:: Smoking status: Patient reports the use of cigarette tobacco products, smokes one pack cigarettes per day. ROS: 11/12 00:22 Constitutional: Negative for fever, chills, and weight loss, Eyes: Negative for injury, juan diego pain, redness, and discharge, ENT: Negative for injury, pain, and discharge, Neck: Negative for injury, pain, and swelling, Respiratory: Negative for shortness of breath, cough, wheezing, and pleuritic chest pain, Abdomen/GI: Negative for abdominal pain, nausea, vomiting, diarrhea, and constipation, Back: Negative for injury and pain, : Negative for injury, bleeding, discharge, and swelling, MS/Extremity: Negative for injury and deformity, Skin: Negative for injury, rash, and discoloration, Neuro: Negative for headache, weakness, numbness, tingling, and seizure, Psych: Negative for depression, anxiety, suicide ideation, homicidal ideation, and hallucinations, Allergy/Immunology: Negative for hives, rash, and allergies, Endocrine: Negative for neck swelling, polydipsia, polyuria, polyphagia, and marked weight changes, Hematologic/Lymphatic: Negative for swollen nodes, abnormal bleeding, and unusual bruising, Cardiovascular: Positive for chest pain, Exam: 00:22 Constitutional: This is a well developed, well nourished patient who is awake, alert, juan diego and in no acute distress. Head/Face: Normocephalic, atraumatic. Eyes: Pupils equal round and reactive to light, extra-ocular motions intact. Lids and lashes normal. Conjunctiva and sclera are non-icteric and not injected. Cornea within normal limits. Periorbital areas with no swelling, redness, or edema. ENT: Nares patent. No nasal discharge, no septal abnormalities noted. Tympanic membranes are normal and external auditory canals are clear. Oropharynx with no redness, swelling, or masses, exudates, or evidence of obstruction, uvula midline. Mucous membranes moist. Neck: Trachea midline, no thyromegaly or masses palpated, and no cervical lymphadenopathy. Supple, full range of motion without nuchal rigidity, or vertebral point tenderness. No Meningismus. Chest/axilla: Normal chest wall appearance and motion. Nontender with no deformity. No lesions are appreciated. Cardiovascular: Regular rate and rhythm with a normal S1 and S2. No gallops, murmurs, or rubs. Normal PMI, no JVD. No pulse deficits. Respiratory: Lungs have equal breath sounds bilaterally, clear to auscultation and percussion. No rales, rhonchi or wheezes noted. No increased work of breathing, no retractions or nasal flaring. Abdomen/GI: Soft, non-tender, with normal bowel sounds. No distension or tympany. No guarding or rebound. No evidence of tenderness throughout. Back: No spinal tenderness. No costovertebral tenderness. Full range of motion. Skin: Warm, dry with normal turgor. Normal color with no rashes, no lesions, and no evidence of cellulitis. MS/ Extremity: Pulses equal, no cyanosis. Neurovascular intact. Full, normal range of motion. Neuro: Awake and alert, GCS 15, oriented to person, place, time, and situation. Cranial nerves II-XII grossly intact. Motor strength 5/5 in all extremities. Sensory grossly intact. Cerebellar exam normal. Normal gait. Psych: Awake, alert, with orientation to person, place and time. Behavior, mood, and affect are within normal limits. 00:22 ECG was reviewed by the Attending Physician. 00:24 Musculoskeletal/extremity: DVT Exam: No signs of deep vein thrombosis. no pain, no juan diego swelling, no tenderness, negative Homans' sign noted on exam, no appreciated bluish discoloration, no erythema, no increased warmth, Vital Signs: 11/11 22:24 BP 73 / 47; Pulse 76; Resp 15; Temp 97.6; Pulse Ox 100% ; Weight 77.11 kg; Height 5 ft. me1 2 in. ; Pain 10/10; 23:06 BP 77 / 30; Pulse 64; Resp 16; Pulse Ox 100% on R/A; al5 23:12 BP 85 / 59; Pulse 64; Resp 16; Pulse Ox 100% on R/A; al5 23:30 BP 102 / 77; Pulse 70; Resp 18; Pulse Ox 100% on R/A; al5 11/12 00:00 BP 106 / 71; Pulse 61; Resp 14; Pulse Ox 100% on R/A; al5 00:30 BP 102 / 62; Pulse 63; Resp 16; Pulse Ox 100% on R/A; al5 11/11 22:24 Body Mass Index 31.09 (77.11 kg, 157.48 cm) [facility] [place] 11/11 22:24 Pain Scale: Adult [facility] [place] MDM: 11/11 22:30 Patient medically screened. [facility] 11/12 00:24 Data reviewed: vital signs, nurses notes. [facility] 11/11 22:31 Order name: Basic Metabolic Panel; Complete Time: 23:23 [facility] 11/11 22:31 Order name: CBC with Diff; Complete Time: 23:23 [facility] 11/11 22:31 Order name: LFT's; Complete Time: 23:23 [facility] 11/11 22:31 Order name: Magnesium; Complete Time: 23:23 [facility] 11/11 22:31 Order name: NT PRO-BNP; Complete Time: 23:23 [facility] 11/11 22:31 Order name: PT-INR; Complete Time: 23:23 [facility] 11/11 22:31 Order name: Troponin HS; Complete Time: 23:23 [facility] 11/11 22:31 Order name: Lipase; Complete Time: 23:23 [facility] 11/11 22:31 Order name: Urinalysis w/ reflexes [facility] 11/12 01:21 Order name: Lipase [facility] 11/12 01:21 Order name: Lipase [facility] 11/12 01:21 Order name: Lipid Profile [facility] 11/12 01:21 Order name: Lipid Profile [facility] 11/12 01:21 Order name: Troponin High Sensitivity [facility] 11/12 01:21 Order name: Troponin High Sensitivity [facility] 11/12 01:21 Order name: Troponin High Sensitivity [facility] 11/12 01:21 Order name: Troponin High Sensitivity [facility] 11/12 01:24 Order name: Lactate w/ 2H reflex if indic. [facility] 11/11 22:31 Order name: XRAY Chest (1 view) [facility] 11/11 23:07 Order name: Head Brain Wo Cont [facility] 11/11 22:31 Order name: EKG; Complete Time: 22:32 [facility] 11/12 01:21 Order name: CONS Physician Consult [facility] 11/11 22:31 Order name: Cardiac monitoring; Complete Time: 23:22 [facility] 11/11 22:31 Order name: EKG - Nurse/Tech; Complete Time: 23:19 [facility] 11/11 22:31 Order name: IV Saline Lock; Complete Time: 22:41 [facility] 11/11 22:31 Order name: Labs collected and sent; Complete Time: 22:41 [facility] 11/11 22:31 Order name: O2 Per Protocol; Complete Time: 22:41 [facility] 11/11 22:31 Order name: O2 Sat Monitoring; Complete Time: 22:41 [facility] 11/12 00:34 Order name: PO challenge: juice; Complete Time: 00:56 [facility] EC:22 Rate is 74 beats/min. Rhythm is regular. QRS [place] is Normal. [place] interval is normal. QRS juan [place]go interval is normal. QT interval is normal. No Q waves. T waves are Normal. No ST changes noted. Clinical impression: NSR w/ Non-specific ST/T Changes, LVH, and No evidence of ischemia. Interpreted by me. Reviewed by me. Administered Medications: 11/11 22:46 CANCELLED (Duplicate Order): ns0.45 % 1000 ml IV at 125 ml/hr continuous juan diego 22:48 Drug: NS 0.9% IV 1000 ml IV at 1 bolus Per protocol; 1000 mL bolus Route: IV; Rate: 1 me1 bolus; Site: right antecubital; 23:05 Drug: NS 0.9% IV 1000 ml IV at 125 ml/hr continuous Route: IV; Rate: 125 ml/hr; Site: ma1 right antecubital; 11/12 03:23 Follow up: Response: No adverse reaction; Medication Administered at Departure; IV al5 Status: Infusion continued upon admission 00:56 Drug: Potassium PO Effervescent Tablet 25 mEq PO once; dissolve in 4 ounces of water or al5 juice Route: PO; 03:23 Follow up: Response: No adverse reaction al5 00:57 Drug: Magnesium Sulfate IVPB 2 grams IVPB once over 2 hrs Route: IVPB; Infused Over: 2 al5 hrs; Site: Other; 03:23 Follow up: Response: No adverse reaction; IV Status: Completed infusion; IV Intake: [id number] Disposition Summary: 11/13/23 00:32 Hospitalization Ordered Notes: Hospitalization Status: Observation juan diego Provider: Jessica Barron cha [facility] [place] Condition: Stable juan diego Problem: new juan diego Symptoms: have improved juan diego Bed/Room Type: Standard [facility] Room Assignment: 420(11/13/23 01:52) ty Diagnosis - Chest pain, unspecified juan diego - Adverse effect of unspecified drugs, medicaments and biological substances - blood juan diego pressure meds, pain meds - Hypotension due to drugs juan diego - Hypomagnesemia juan diego Forms: - Medication Reconciliation Form juan diego - SBAR form juan diego - Leadership Thank You Letter juan diego Signatures: Dispatcher [employer] Michael Meyer MD MD cha Eddleman, Michelle RN RN me1 [employer] Reddy Amanda, RN RN al5 Corrections: (The following items were deleted from the chart) 11/11 22:32 22:32 BASIC METABOLIC PANEL+C.LAB.BRZ ordered. EDMS EDMS 22:32 22:32 CBC+H.LAB.BRZ ordered. EDMS EDMS 22:32 22:32 HEPATIC FUNCTION+C.LAB.BRZ ordered. EDMS EDMS 22: 22:32 MAGNESIUM+C.LAB.BRZ ordered. EDMS EDMS 22:32 22:32 PROBNP+C.LAB.BRZ ordered. EDMS EDMS 22:32 22:32 PROTIME (+INR)+COAG.LAB.BRZ ordered. EDMS EDMS 22:32 22:32 Troponin High Sensitivity+C.LAB.BRZ ordered. EDMS EDMS 22: 22:32 LIPASE+C.LAB.BRZ ordered. EDMS EDMS 22:32 22:32 Urinalysis+U.LAB.BRZ ordered. EDMS EDMS 22:46 22:31 NS IV 0.45 % 1000 ml IV at 125 ml/hr continuous ordered. juan diego juan diego 23:07 22:42 Head Brain W/ Wo Con+CT.RAD.BRZ ordered. EDMS EDMS 11/12 01:52 00:32 juan diego ty
--- NOTE | 2023-11-13 00:32 | ER ---
Nurse's Notes [facility] Name: Geetha Khan Age: 48 yrs Sex: Female : 1975 Arrival Date: 11/12/2023 Time: 22:22 Bed 5 Private MD: Diagnosis: Chest pain, unspecified;Adverse effect of unspecified drugs, medicaments and biological substances-blood pressure meds, pain meds;Hypotension due to drugs;Hypomagnesemia Presentation: 11/11 22:24 Chief complaint: EMS states: toned out for chest pain 10/, left sided. States she me1 went to a clinic today for pain and was given a shot, not sure what it was. Took her bp pill this evening and then started having chest pain and anxiety. per EMS BP 83/52, HR 76, o2 sat 97%. Coronavirus screen: Vaccine status: Patient reports being unvaccinated. Ebola Screen: No symptoms or risks identified at this time. Initial Sepsis Screen: Does the patient meet any 2 criteria? No. Patient's initial sepsis screen is negative. Does the patient have a suspected source of infection? No. Patient's initial sepsis screen is negative. Risk Assessment: Do you want to hurt yourself or someone else? Patient reports no desire to harm self or others. Onset of symptoms was November 12, 2023. 22:24 Method Of Arrival: [place] [facility] [place] Acuity: CORRINA 3 me1 Triage Assessment: 22:31 General: Appears comfortable, well developed, well nourished, Behavior is cooperative, me1 appropriate for age, drowsy. Pain: Complains of pain in chest Pain does not radiate. Pain currently is 10 out of 10 on a pain scale. Quality of pain is described as pressure, Pain began suddenly, Is continuous. EENT: No signs and/or symptoms were reported regarding the EENT system. Neuro: Level of Consciousness is awake, alert, obeys commands, Oriented to person, place, time, situation, Appropriate for age. Cardiovascular: Patient's skin is warm and dry. Respiratory: Airway is patent Trachea midline Respiratory effort is even, unlabored, Respiratory pattern is regular, symmetrical. GI: No signs and/or symptoms were reported involving the gastrointestinal system. : No signs and/or symptoms were reported regarding the genitourinary system. Derm: Skin is intact, is healthy with good turgor, Skin is. Musculoskeletal: No signs and/or symptoms reported regarding the musculoskeletal system. 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 - Infectious Disease History:: Denies. - Social history:: Smoking status: Patient reports the use of cigarette tobacco products, smokes one pack cigarettes per day. Screenin/28 00:57 [facility] ED Fall Risk Assessment (Adult) History of falling in the last 3 months, al5 including since admission No falls in past 3 months (0 pts) Confusion or Disorientation No (0 pts) Intoxicated or Sedated No (0 pts) Impaired Gait Yes (1 pt) Mobility Assist Device Used Yes (1 pt) Altered Elimination Yes (1 pt) Score/Fall Risk Level 3 or more points = High Risk Oriented to surroundings, Maintained a safe environment, Hourly rounding (assess needs \T\ fall precautionary measures) done. Abuse screen: Denies threats or abuse. Denies injuries from another. Nutritional screening: No deficits noted. Tuberculosis screening: No symptoms or risk factors identified. Assessment: 11/11 23:12 General: Appears in no apparent distress. Behavior is calm, cooperative. Pain: Pain al5 does not radiate. Pain: Complains of pain in chest. Neuro: Level of Consciousness is awake, alert, obeys commands, Oriented to person, place, time, situation. Cardiovascular: Capillary refill < 3 seconds Patient's skin is warm and dry. Cardiovascular: Reports chest pain, BP 77/30. Respiratory: Airway is patent Respiratory effort is even, unlabored, Respiratory pattern is regular, symmetrical. GI: No signs and/or symptoms were reported involving the gastrointestinal system. : No signs and/or symptoms were reported regarding the genitourinary system. EENT: No signs and/or symptoms were reported regarding the EENT system. Derm: Skin is intact, Skin is pink, warm \T\ dry. normal. Musculoskeletal: No signs and/or symptoms reported regarding the musculoskeletal system. 11/12 00:30 Reassessment: Patient appears in no apparent distress at this time. No changes from al5 previously documented assessment. Patient and/or family updated on plan of care and expected duration. Pain level reassessed. Patient is alert, oriented x 3, equal unlabored respirations, skin warm/dry/pink. bp improved during fluid bolus. Vital Signs: 11/11 22:24 BP 73 / 47; Pulse 76; Resp 15; Temp 97.6; Pulse Ox 100% ; Weight 77.11 kg; Height 5 ft. me1 2 in. ; Pain 10/10; 23:06 BP 77 / 30; Pulse 64; Resp 16; Pulse Ox 100% on R/A; al5 23:12 BP 85 / 59; Pulse 64; Resp 16; Pulse Ox 100% on R/A; al5 23:30 BP 102 / 77; Pulse 70; Resp 18; Pulse Ox 100% on R/A; al5 11/12 00:00 BP 106 / 71; Pulse 61; Resp 14; Pulse Ox 100% on R/A; al5 00:30 BP 102 / 62; Pulse 63; Resp 16; Pulse Ox 100% on R/A; al5 11/11 22:24 Body Mass Index 31.09 (77.11 kg, 157.48 cm) me1 11/11 22:24 Pain Scale: [place] [facility] [place] Course: 11/11 22:24 Patient arrived in ED. me1 22:30 Michael Grimm MD is Attending Physician. [facility] 22:31 Triage completed. me1 22:31 Arm band placed on Patient placed in an exam room. me1 22:41 Basic Metabolic Panel Sent. me1 22:41 CBC with Diff Sent. me1 22:41 LFT's Sent. me1 22:41 Magnesium Sent. me1 22:41 NT PRO-BNP Sent. me1 22:41 PT-INR Sent. me1 22:41 Troponin HS Sent. me1 22:41 Lipase Sent. me1 22:48 Initial lab(s) drawn, by ri, sent to lab. Inserted saline lock: 22 gauge in right ri1 antecubital area, using aseptic technique. 22:56 XRAY Chest (1 view) In Process Unspecified. EDMS 22:56 EKG done, by ED staff, reviewed by Michael Grimm MD. oe 23:05 Nohemy Clark RN is Primary Nurse. me1 23:11 Head Brain Wo Cont In Process Unspecified. EDMS 23:12 Report received from YANETH alas. al5 11/12 00:15 Inserted saline lock: 24 gauge in right ,using aseptic technique. foot. vc1 00:30 Jessica Barron MD is Hospitalizing Provider. juan diego 00:57 No provider procedures requiring assistance completed. O2 via room air. al5 00:58 Patient has correct armband on for positive identification. Bed in low position. Call al5 light in reach. Side rails up X2. Provided Education on: need for admission. Client placed on continuous cardiac and pulse oximetry monitoring. NIBP monitoring applied. air sampling and monitoring on. 00:58 Patient admitted, IV remains in place. al5 Administered Medications: 11/11 22:46 CANCELLED (Duplicate Order): ns0.45 % 1000 ml IV at 125 ml/hr continuous juan diego 22:48 Drug: NS 0.9% IV 1000 ml IV at 1 bolus Per protocol; 1000 mL bolus Route: IV; Rate: 1 me1 bolus; Site: right antecubital; 23:05 Drug: NS 0.9% IV 1000 ml IV at 125 ml/hr continuous Route: IV; Rate: 125 ml/hr; [place] [facility] [place]ital; 11/12 03:23 Follow up: Response: No adverse reaction; Medication Administered at Departure; IV al5 Status: Infusion continued upon admission 00:56 Drug: Potassium PO Effervescent Tablet 25 mEq PO once; dissolve in 4 ounces of water or al5 juice Route: PO; 03:23 Follow up: Response: No adverse reaction al5 00:57 Drug: Magnesium Sulfate IVPB 2 grams IVPB once over 2 hrs Route: IVPB; Infused Over: 2 al5 hrs; Site: Other; 03:23 Follow up: Response: No adverse reaction; IV Status: Completed infusion; IV Intake: [id number] Medication: 00:58 VIS not applicable for this client. al5 Intake: 03:23 IV: 50ml; Total: 50ml. al5 Outcome: 00:32 Decision to Hospitalize by Provider. juan diego 03:13 Admitted to Tele accompanied by nurse, accompanied by tech, via stretcher, room 420, al5 with chart, Report called to holly 03:13 Condition: good 03:13 Instructed on the need for admit, 03:14 Patient left the ED. al5 Signatures: Dispatcher [employer] Michael Meyer MD MD cha Espinosa, Orlando oe Calcote, Vanessa, RN RN vc1 Nohemy Clark RN RN me1 Anayeli Otero RN RN al5
[2023-11-13] MEDS ORDERED: Magnesium Sulfate 2gm IVPB 2 G/50 ML BAG IV ONE (00:51)
[2023-11-13] MEDS ORDERED: POTASSIUM 25 MEQ EFFERV TAB ONE (00:51)
[2023-11-13] MEDS ORDERED: LORAZEPAM 0.5 MG TABLET PO PRN (01:16)
[2023-11-13] MEDS ORDERED: HYDRALAZINE HCL 20 MG/ML VIAL IV PRN (01:16)
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
[2023-11-13] MEDS ORDERED: ONDANSETRON 4 MG/2 ML VIAL IV PRN (01:17)
[2023-11-13] MEDS: Magnesium Sulfate 2gm IVPB 2 G/50 ML BAG IV SCH (02:00)
[2023-11-13 03:16] VITALS: BMI 29.2
[2023-11-13] MEDS: MORPHINE 2 MG/ML SYR IV PRN (03:32)
[2023-11-13] MEDS ORDERED: ASPIRIN EC 81 MG TAB PO SCH (09:00)
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
[2023-11-13] MEDS: ENOXAPARIN 40 MG/0.4 ML SQ SCH (09:26)
--- NOTE | 2023-11-13 11:24 | RAD REPORT ---
EXAM DESCRIPTION: RAD - Chest Single View - 11/12/2023 10:54 pm CLINICAL HISTORY: Chest pain. COMPARISON: XR Chest 10/13/2023. TECHNIQUE: Single view AP chest radiograph(s). FINDINGS: The lungs are clear. No pulmonary infiltrate or edema identified. No pleural effusion. N o pneumothorax. Nonenlarged cardiomediastinal silhouette. No significant osseous abnormality. IMPRESSION: No acute cardiopulmonary abnormality identified by radiograph. Electronically signed by: Jen Feliciano MD 11/12/2023 11:37 PM CDT Due to temporary technical issues with the PACS/Fluency reporting system, reports are being signed by the in house radiologist without review as a courtesy to ensure prompt reporting. The interpreting r adiologist is fully responsible for the content of the report.
--- NOTE | 2023-11-13 12:16 | RAD REPORT ---
EXAM DESCRIPTION: CT - Head Brain Wo Cont - 11/13/2023 6:44 am CLINICAL HISTORY: 48 years Female SLURRED SPEECH TECHNIQUE: Contiguous axial CT images obtained through the brain without IV contrast. Coronal and sa gittal reformatted images also provided. This exam was performed according to our department optimization program which includes automated exp osure control, adjustment of the mA and/or kv according to patient size and/or use of iterative recon struction technique. COMPARISON: 10/22/2023 FINDINGS: There is no intracranial hemorrhage, extraaxial collection, or evidence of acute transcort ical infarction. Patchy areas of low attenuation within the periventricular and subcortical white matter are stable an d compatible with chronic microvascular disease. Stable right internal capsule and basal ganglia [employer] [place] infarcts. Mild diffuse volume loss without midline shift. Vascular calcifications are noted. No lesion of the skull base or calvarium is identified. The parana yasmine sinuses and mastoid air cells are clear. IMPRESSION: No acute intracranial abnormality. Stable chronic microvascular changes and volume loss. Stable chronic infarcts. Electronically signed by: Daniela Mcintyre MD 11/12/2023 11:34 PM CDT RP Due to temporary technical issues with the PACS/Fluency reporting system, reports are being signed by the in house radiologist without review as a courtesy to ensure prompt reporting. The interpreting r adiologist is fully responsible for the content of the report.
[2023-11-13] MEDS: MAGNESIUM 50% 3 GM in NA CHLORIDE 0.9% 100 ML IV ONE (13:30)
[2023-11-13] MEDS: POTASSIUM CL SA 10 MEQ TAB PO SCH (13:40)
[2023-11-13] MEDS: MAGNESIUM 50% 3 GM in NA CHLORIDE 0.9% 100 ML IV SCH (13:52)
[2023-11-13 14:20] LABS: Troponin High Sensitivity 35.5 pg/mL (<58.9)
[2023-11-13] MEDS: ALBUTEROL 2.5 MG/3 ML NEB SOL NEB PRN (16:12)
[2023-11-14 07:52] VITALS: O2SAT 98
[2023-11-14 08:20] LABS: Magnesium 1.8 mg/dL (1.6-2.4)
[2023-11-14] MEDS: NA CHLORIDE 0.9% 1,000 ML IV SCH (10:06)
--- NOTE | 2023-11-14 12:55 | EKG ---
Test Date: 2023-11-12 Test Time: 22:53:33 Museum Host/Hostess: SOLO MEASUREMENT RESULTS: Intervals: Rate: 74 OH: 184 QRSD: 90 QT: 400 QTc: 444 [place]: P: 58 OH: 184 QRS: 10 T: 138 INTERPRETIVE STATEMENTS: Sinus rhythm with occasional premature ventricular complexes Left ventricular hypertrophy with repolarization abnormality Abnormal ECG Compared to ECG 11/11/2023 16:15:18 Ventricular premature complex(es) now present Electronically Signed On 11-14-23 12:54:22 CDT by Alan Garay
[2023-11-14] MEDS: ACETAMINOPHEN 325 MG TABLET PO PRN (14:04)
--- NOTE | 2023-11-14 14:41 | P.PN ---
Subjective Date of Service: 11/14/23 Chief Complaint: Chest pain Pt is resting comfortably in bed. She denies any chest pain. Lipase is 560. She is getting IVF. No other complaints. Review of Systems General: Unremarkable Eyes: Unremarkable ENT: Unremarkable Respiratory: Unremarkable Cardiovascular: Unremarkable Gastrointestinal: Unremarkable Genitourinary: Unremarkable Musculoskeletal: Unremarkable Integumentary: Unremarkable Neurological: Unremarkable Lymphatics: Unremarkable Physical Examination - Vital Signs Temperature: 96.7 F Blood Pressure: 103/58 Pulse: 74 Respirations: 18 Pulse Ox (%): 98 - Physical Exam General: Alert, In no apparent distress, Oriented x3 HEENT: Atraumatic, Normocephalic, PERRLA Neck: Supple, 2+ carotid pulse no bruit, JVD not distended Respiratory: Clear to auscultation bilaterally, Normal air movement Cardiovascular: No edema, Normal pulses, Regular rate/rhythm, Normal S1 S2 Capillary refill: <2 Seconds Gastrointestinal: Normal bowel sounds, Soft and benign, Non-distended Musculoskeletal: No clubbing, No swelling, No contractures Integumentary: No rashes, No breakdown, No significant lesion Neurological: Normal gait, Normal speech, Normal strength at 5/5 x4 extr Lymphatics: No axilla or inguinal lymphadenopathy Assessment And Plan - Plan Atypical chest pain: Likely musskuloskeletal in origin. troponin is negative x3. Will continue prn pain med. Cardiology evaluated pt but no further cardiac work up needed. Hypotension: Improving. Continue IVF and monitor BP. CKD stage III: Will avoid nephrotoxins and monitor renal function. Hypomagnesemia: will replete and monitor. Hx of Pancreatitis: Pt has elevated lipase level ( 560 <- 696). Will continue IVf and trend lipase. Recent diagnosis of colitis: noted History of old CVA with left-sided weakness: stable. Continue home meds. History of COPD: Stable. Not in exacerbation. Will continue prn duoneb and oxygen. History of seizure disorder: stable Code: Full code DVT ppx: Lovenox
[2023-11-14 20:22] VITALS: BP 130/75; TEMP 97.6
--- NOTE | 2023-11-14 22:34 | P.DS ---
Admission Date: 11/14/23 Discharge Date: 11/14/23 Disposition: ROUTINE DISCHARGE Reason for Admission: Chest pain - Problems (1) Acute CHF Current Visit: No Status: Acute (2) Chest pain Current Visit: No Status: Acute Brief History of Present Illness: 48-year-old female with past medical history of CVA with left-sided weakness, hypertension, DM, COPD, chronic smoker, diastolic CHF, seizure disorder who presented to the emergency room because of left-sided chest wall pain since the last 1 day. Patient states chest pain left-sided and radiates down to the rib margins. She states she fell about a week ago and since then she has been having pain but is much worse since the last 2 days. She states she has gone to the doctor's office today because of the pain. She was given an IV pain medicine. She states she started to feel weak after the pain medication and on getting home she has taking her blood pressure medicines and never felt weak. No associated worsening shortness of breath. She denies any cough or dizziness at this time. She admits to weakness and fatigue. She was recently in the emergency room 2 days ago for similar complaint and discharged home. At the time she was noted with elevated lipase level [address] shows normal pancreas but findings of colitis. Patient was discharged home. She developed recurrent chest pain again 1 day ago which has been intermittent and hence presented today. On arrival in the ED she was noted with transient low blood pressure with blood pressure of 73/47. She was nontachycardic, and afebrile. She received IV fluid bolus and her blood pressure improved to the 120s over 60s now. Chest x-ray shows no acute pulmonary infiltrate, head CT was negative. EKG shows normal sinus rhythm at 74 bpm, no significant ST segment changes. LVH pattern. Magnesium level significantly low at 1.0. Creatinine at 1.5 about baseline of 1.3-2.0. She has been admitted for atypical chest pain. Hospital Course: Patient was admitted for left-sided pain. She was noted with severe low magnesium level as well as elevated lipase. Her creatinine was 1.5 but stable. She was evaluated by cardiology and felt no intervention needed. Serial set of cardiac enzymes were negative. Patient potassium and magnesium were repleted. Follow-up magnesium level improved to 1.8. Patient lipase started to trend down to 560 although she was asymptomatic and tolerating p.o. well. Patient is adamant tonight about going home. She is repeatedly crying. Given relatively improved or stable symptoms patient will be discharged today. Patient advised to follow-up with PCP in 1 week with repeat electrolytes monitor Vital Signs/Physical Exam: Temp Pulse Resp BP Pulse Ox 97.6 F 63 16 130/75 100 11/14/23 20:00 11/14/23 20:00 11/14/23 20:00 11/14/23 20:00 11/14/23 20:00 General: Alert, In no apparent distress, Oriented x3 HEENT: Atraumatic, Normocephalic Neck: Supple, 2+ carotid pulse no bruit, JVD not distended Respiratory: Clear to auscultation bilaterally, Normal air movement Cardiovascular: Normal pulses, Regular rate/rhythm, Normal S1 S2 Gastrointestinal: Normal bowel sounds, Soft and benign, Non-distended, No ascites, No tenderness Musculoskeletal: No clubbing, No swelling Integumentary: No rashes, No breakdown, No significant lesion Neurological: Normal speech, Sensation intact, Cranial nerves 3-12 intact, Other (Left-sided paraparesis) Laboratory Data at Discharge: WBC 7.50 thou/uL (4.3-10.9) 11/12/23 22:40 Hgb 10.7 g/dL (12.0-15.0) L 11/12/23 22:40 Hct 31.0 % (36.0-45.0) L 11/12/23 22:40 Plt Count 186 thou/uL (152-406) 11/12/23 22:40 PT 10.7 SECONDS (9.4-12.5) 11/12/23 22:40 INR 0.95 11/12/23 22:40 Sodium 135 mEq/L (136-145) L 11/12/23 22:40 Potassium 3.2 mEq/L (3.5-5.1) L 11/12/23 22:40 BUN 20 mg/dL (7-18) H 11/12/23 22:40 Creatinine 1.57 mg/dL (0.55-1.02) H 11/12/23 22:40 Glucose 73 mg/dL (74-106) L 11/12/23 22:40 Magnesium 1.8 mg/dL (1.6-2.4) 11/14/23 07:35 Total Bilirubin 0.2 mg/dL (0.2-1.0) 11/12/23 22:40 AST 12 U/L (15-37) L 11/12/23 22:40 ALT 22 U/L (13-56) 11/12/23 22:40 Alkaline Phosphatase 189 U/L (45-117) H 11/12/23 22:40 Triglycerides 94 mg/dL (<150) 11/14/23 07:35 Cholesterol 156 mg/dL (<200) 11/14/23 07:35 HDL Cholesterol 68 mg/dL (40-60) H 11/14/23 07:35 Cholesterol/HDL Ratio 2.29 11/14/23 07:35 Lipase 307 U/L (13-75) H 11/14/23 17:35 Home Medications: Cefdinir [Cefdinir*] 300 mg PO BID #14 cap 10/14/23 Hydrocodone 5/APAP 325 [[place] 5/325*] 1 tab PO Q6HP PRN #30 tab 10/14/23 Diet: Regular Activity: Ad adam Followup: Yonatan Rae DO [Primary Care Provider] - Physician Review: Patient Assessed, Agree with Above Assessment and Plan Time spent managing pt's care (in minutes): 30
--- NOTE | 2023-11-14 23:07 | P.PN ---
Date of Service: 11/14/23 Called to evaluate patient with crying desperately wanting to go home tonight. She is requesting to speak with MD. On arrival patient denies any symptoms he pain is better she wants to go home. Chart reviewed. Will discharge patient home with magnesium tabs
== END 2023-11-14 23:18 | disposition home or self-care (01) | DRG 291 ==
LOC: ER 22:22 → 4TH 11-13 01:17 → OBSVTOIN 11-14 17:55
PROVIDERS: ADMIT Internal Medicine; ATTEND Hospitalist
DX: I13.0 Hypertensive heart and chronic kidney disease with heart failure and stage 1 through stage 4 chronic kidney disease, or unspecified chronic kidney disease (principal); I50.33 Acute on chronic diastolic (congestive) heart failure; I69.354 Hemiplegia and hemiparesis following cerebral infarction affecting left non-dominant side; N18.30 Chronic kidney disease, stage 3 unspecified; E11.22 Type 2 diabetes mellitus with diabetic chronic kidney disease; F41.9 Anxiety disorder, unspecified; I95.2 Hypotension due to drugs; E83.42 Hypomagnesemia; J44.9 Chronic obstructive pulmonary disease, unspecified; I25.2 Old myocardial infarction; F17.210 Nicotine dependence, cigarettes, uncomplicated; T50.905A Adverse effect of unspecified drugs, medicaments and biological substances, initial encounter; Z88.6 Allergy status to analgesic agent; Z91.013 Allergy to seafood; Z91.018 Allergy to other foods
CPT/HCPCS: 36415; 70450; 71045; 80048; 80061; 80076; 83605; 83690; 83735; 83880; 84484; 85025; 85610; 93005; 94640; 96361; 96365; 96366; 99285; G0378; J1650; J2270; J3475; J7030; J7613

== ENCOUNTER 2023-11-15 19:29 | Emergency (ER) | payer OTHER ==
[2023-11-15] MEDS ORDERED: TRAMADOL HCL 50 MG TAB ONE (23:25)
[2023-11-15] MEDS ORDERED: DIAZEPAM 5 MG TABLET ONE (23:25)
--- NOTE | 2023-11-15 23:39 | EDPHYS ---
Physician Documentation [facility] Name: Geetha Khan Age: 48 yrs Sex: Female : 1975 Arrival Date: 11/15/2023 Time: 19:29 Bed 12 Private MD: ED Physician Kishor Hoyos HPI: 11/14 20:20 This 48 yrs old Female presents to ER via EMS with complaints of Chest Pain. cp 20:20 The patient or guardian reports chest pain that is located primarily in the anterior cp chest wall. 20:20 Onset: 1 hour(s) ago. The pain does not radiate. Associated signs and symptoms: cp Pertinent negatives: abdominal pain, cough, diaphoresis, palpitations, shortness of breath, vomiting. The chest pain is described as constant. Severity of pain: in the emergency department the pain is unchanged despite home interventions. The patient has experienced similar episodes in the past, chronically. 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 - Infectious Disease History:: Denies. - Social history:: Smoking status: Patient reports the use of cigarette tobacco products, smokes one-half pack cigarettes per day. ROS: 20:25 Constitutional: Negative for body aches, chills, fever, poor PO intake, cp 20:25 Eyes: Negative for injury, pain, redness, and discharge, cp 20:25 ENT: Negative for drainage from ear(s), ear pain, sore throat, difficulty swallowing, difficulty handling secretions, 20:25 Neck: Negative for pain with movement, pain at rest, stiffness, 20:25 Cardiovascular: Positive for chest pain, Negative for palpitations, 20:25 Respiratory: Negative for cough, shortness of breath, wheezing, 20:25 Abdomen/GI: Negative for abdominal pain, vomiting, diarrhea, constipation, 20:25 Back: Negative for pain at rest, pain with movement, 20:25 Neuro: Negative for altered mental status, dizziness, headache, weakness, 20:25 All other systems are negative, Exam: 20:13 ECG was reviewed by the Attending Physician. cp 20:30 Constitutional: The patient appears in no acute distress, alert, awake, cp non-diaphoretic, non-toxic, well developed, well nourished, 20:30 Head/Face: Normocephalic, atraumatic. cp 20:30 Eyes: Periorbital structures: appear normal, Conjunctiva: normal, Sclera: no appreciated abnormality, Lids and lashes: appear normal, bilaterally, 20:30 ENT: External ear(s): are unremarkable, Nose: is normal, Mouth: Lips: moist, Oral mucosa: moist, Posterior pharynx: Airway: no evidence of obstruction, patent, 20:30 Neck: ROM/movement: is normal, is supple, without pain, no range of motions cp limitations, 20:30 Chest/axilla: Inspection: normal, 20:30 Cardiovascular: Rate: normal, Rhythm: regular, JVD: is not appreciated, cp 20:30 Respiratory: the patient does not display signs of respiratory distress, Respirations: normal, no use of accessory muscles, no retractions, labored breathing, is not present, Breath sounds: are clear throughout, no decreased breath sounds, no stridor, no wheezing, 20:30 Abdomen/GI: Inspection: abdomen appears normal, Palpation: abdomen is soft and non-tender, in all quadrants, 20:30 Back: pain, is absent, ROM is normal, 20:30 Neuro: Orientation: to person, place \T\ time. Mentation: is normal, Motor: no acute changes, Sensation: no acute changes, Vital Signs: 20:16 BP 131 / 102; Pulse 65; Resp 18; Temp 96.5(TE); Pulse Ox 100% on R/A; Weight 79.38 kg; tm6 Height 5 ft. 2 in. ; Pain 9/10; 22:30 BP 122 / 64; Pulse 77; Resp 18; Temp 98.6; Pulse Ox 99% on R/A; Pain 8/10; ar6 23:27 BP 106 / 89; Pulse 74; Resp 17; Pulse Ox 98% on R/A; ar6 11/15 00:30 BP 102 / 72; Pulse 66; Resp 17; Pulse Ox 100% ; vc1 08/30 20:16 Body Mass Index 32.01 (79.38 kg, 157.48 cm) tm6 11/14 20:16 Pain Scale: Adult tm6 22:30 Pain Scale: Adult ar6 MDM: 11/14 20:07 Patient medically screened. cp 11/15 23:39 Data reviewed: vital signs, nurses notes, lab test result(s), EKG, and as a result, I cp will discharge patient. 23:39 Differential diagnosis: abnormal EKG, acute myocardial infarction, chest wall pain, cp costochondritis, myocarditis, pericarditis, pneumonia, pneumothorax. I considered the following discharge prescriptions or medication management in the emergency department Medications were administered in the Emergency Department. See MAR. Independent interpretation of the following test(s) in the Emergency Department EKG: See my EKG interpretation above. Care significantly affected by the following chronic conditions: Hypertension, Chronic Obstructive Pulmonary Disease. Counseling: I had a detailed discussion with the patient and/or guardian regarding the historical points, exam findings, and any diagnostic results supporting the discharge/admit diagnosis, lab results, to return to the emergency department if symptoms worsen or persist or if there are any questions or concerns that arise at home. Response to treatment: the patient's symptoms have markedly improved after treatment, and as a result, I will discharge patient. 11/14 20:18 Order name: Troponin High Sensitivity; Complete Time: 23:38 cp 11/14 23:38 Interpretation: Reviewed. cp EC/30 20:13 Rate is 66 beats/min. Rhythm is regular. NE interval is normal. QRS interval is normal. cp QT interval is normal. T waves are Inverted in leads I, aVL, V5, V6. Interpreted by me. Reviewed by me. Administered Medications: 23: Drug: traMADol PO 50 mg PO once Route: PO; ar6 11/15 00:00 Follow up: Response: No adverse reaction; Marked relief of symptoms vc1 11/14 23:27 Drug: Diazepam PO 5 mg PO once Route: PO; ar6 11/15 00:00 Follow up: Response: No adverse reaction; Marked relief of symptoms vc1 Disposition: 11/14 21:39 I was immediately available on-site in the Emergency Department for consultation in the ms3 care of the patient. Disposition Summary: 11/15/23 23:39 Discharge Ordered Notes: Location: Home cp Problem: chronic cp Symptoms: have improved cp Condition: Stable cp Diagnosis - Other chronic pain cp Followup: cp - With: Private Physician - When: 2 - 3 days - Reason: Worsening of condition Discharge Instructions: - Discharge Summary Sheet cp - Chronic Pain, Adult cp Forms: - Medication Reconciliation Form cp - Antibiotic Education cp - Prescription Opioid Use cp - Patient Portal Instructions cp - Leadership Thank You Letter cp Addendum: 11/20/2023 10:39 I was immediately available on-site in the Emergency Department for consultation in the m s3 care of the patient. Signatures: Dispatcher [employer] EDMS Michael Nguyen PA PA cp Sims, Marcus, DO DO ms3 Greg Allen RN RN tm6 Ирина Lerner RN RN ar6 Syeda Bruce RN vc1 Corrections: (The following items were deleted from the chart) 11/14 23:39 23:39 Chest pain, unspecified cp cp
--- NOTE | 2023-11-15 23:39 | ER ---
Nurse's Notes [facility] Name: Geetha Khan Age: 48 yrs Sex: Female : 1975 Arrival Date: 11/15/2023 Time: 19:29 Bed 12 Private MD: Diagnosis: Other chronic pain Presentation: 11/14 20:16 Chief complaint: EMS states: chest pain starting about an hour ago. Coronavirus screen: tm6 Vaccine status: Patient reports receiving the 2nd dose of the covid vaccine. Ebola Screen: Patient negative for fever greater than or equal to 101.5 degrees Fahrenheit, and additional compatible Ebola Virus Disease symptoms Patient denies exposure to infectious person. Patient denies travel to an Ebola-affected area in the 21 days before illness onset. No symptoms or risks identified at this time. Initial Sepsis Screen: Does the patient meet any 2 criteria? No. Patient's initial sepsis screen is negative. Does the patient have a suspected source of infection? No. Patient's initial sepsis screen is negative. Risk Assessment: Do you want to hurt yourself or someone else? Patient reports no desire to harm self or others. Onset of symptoms was November 15, 2023. 20:16 Method Of Arrival: EMS: [facility] tm6 20:16 Acuity: CORRINA 3 tm6 Triage Assessment: 20:19 General: Appears in no apparent distress. Behavior is calm, cooperative. Pain: tm6 Complains of pain in chest Pain currently is 9 out of 10 on a pain scale. Quality of pain is described as sharp, stabbing, Pain began 1 hour ago. EENT: No signs and/or symptoms were reported regarding the EENT system. Neuro: Level of Consciousness is awake, alert, obeys commands, Oriented to person, place, time, situation. Cardiovascular: Reports chest pain, Patient's skin is warm and dry. Rhythm is sinus rhythm Chest pain. Respiratory: Airway is patent Respiratory effort is even, unlabored, Respiratory pattern is regular, symmetrical. GI: No signs and/or symptoms were reported involving the gastrointestinal system. Abdomen is flat, non-distended. : No signs and/or symptoms were reported regarding the genitourinary system. Derm: No signs and/or symptoms reported regarding the dermatologic system. Musculoskeletal: No signs and/or symptoms reported regarding the musculoskeletal system. 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 - Infectious Disease History:: Denies. - Social history:: Smoking status: Patient reports the use of cigarette tobacco products, smokes one-half pack cigarettes per day. Screenin:30 [facility] ED Fall Risk Assessment (Adult) History of falling in the last 3 months, ar6 including since admission No falls in past 3 months (0 pts) Confusion or Disorientation No (0 pts) Intoxicated or Sedated No (0 pts) Impaired Gait No (0 pts) Mobility Assist Device Used No (0 pt) Altered Elimination No (0 pt) Score/Fall Risk Level 0 - 2 = Low Risk Oriented to surroundings, Maintained a safe environment, Educated pt \\T\\ family on fall prevention, incl call for assistance when getting out of bed, Hourly rounding (assess needs \\T\\ fall precautionary measures) done. Abuse screen: Denies threats or abuse. Denies injuries from another. Nutritional screening: No deficits noted. Tuberculosis screening: No symptoms or risk factors identified. Assessment: 22:30 Reassessment: pt. reports hx of same chest pain; pt. reports, "The doctor normally ar6 gives me pain medication and lets me go;" plan of care ongoing. General: Appears in no apparent distress. Behavior is calm, cooperative, appropriate for age. Pain: Complains of pain in chest Pain does not radiate. Pain:. Pain: Complains of pain in chest Pain currently is 8 out of 10 on a pain scale. Pain began x1 week ago. Neuro: Level of Consciousness is awake, alert, obeys commands, Oriented to person, place, time, situation. Cardiovascular: Reports chest pain, reports hx of "same" chest pain Capillary refill < 3 seconds Rhythm is regular. Respiratory: Airway is patent. GI: Abdomen is round non-distended, Patient currently denies nausea, vomiting. : No signs and/or symptoms were reported regarding the genitourinary system. EENT: Oral mucosa is moist. 11/15 00:40 Reassessment: discharge delayed do to this nurse triaging and another critical patient vc1 needing my attention. Vital Signs: 11/14 20:16 BP 131 / 102; Pulse 65; Resp 18; Temp 96.5(TE); Pulse Ox 100% on R/A; Weight 79.38 kg; tm6 Height 5 ft. 2 in. ; Pain 9/10; 22:30 BP 122 / 64; Pulse 77; Resp 18; Temp 98.6; Pulse Ox 99% on R/A; Pain 8/10; ar6 23:27 BP 106 / 89; Pulse 74; Resp 17; Pulse Ox 98% on R/A; ar6 11/15 00:30 BP 102 / 72; Pulse 66; Resp 17; Pulse Ox 100% ; vc1 11/14 20:16 Body Mass Index 32.01 (79.38 kg, 157.48 cm) tm6 11/14 20:16 Pain Scale: Adult tm6 22:30 Pain Scale: Adult ar6 ED Course: 11/14 19:33 Patient arrived in ED. ra3 19:57 Michael Nguyen PA is PHCP. cp 19:58 Kishor Hoyos DO is Attending Physician. cp 20:18 Triage completed. tm6 20:19 Arm band placed on right wrist. tm6 22:22 Ирина Lerner, RN is Primary Nurse. ar6 22:30 No apparent distress. Awaiting disposition. ar6 22:30 Patient has correct armband on for positive identification. Bed in low position. Call ar6 light in reach. Side rails up X2. Provided Education on: medications. Client placed on continuous cardiac and pulse oximetry monitoring. NIBP monitoring applied. Door closed. Noise minimized. Lights dimmed. Warm blanket given. Head of bed lowered. 22:30 No provider procedures requiring assistance completed. Patient maintains SpO2 ar6 saturation greater than 95% on room air. 23:05 Troponin High Sensitivity Sent. ar6 23:19 Troponin High Sensitivity Sent. ar6 11/15 00:40 Patient did not have IV access during this emergency room visit. vc1 Administered Medications: 11/14 23:27 Drug: traMADol PO 50 mg PO once Route: PO; ar6 11/15 00:00 Follow up: Response: No adverse reaction; Marked relief of symptoms vc1 11/14 23:27 Drug: Diazepam PO 5 mg PO once Route: PO; ar6 11/15 00:00 Follow up: Response: No adverse reaction; Marked relief of symptoms vc1 Medication: 11/14 22:30 VIS not applicable for this client. ar6 Outcome: 23:39 Discharge ordered by MD. spaulding 11/15 00:40 Discharged to home via wheelchair, vc1 Condition: good 00:40 Discharge instructions given to patient, Instructed on discharge instructions, follow vc1 up and referral plans. Demonstrated understanding of instructions, follow-up care, 00:41 Patient left the ED. vc1 Signatures: Michael Nguyen PA PA cp Calcote, Vanessa RN RN vc1 Greg Allen RN RN 6 Renea Gallardo ra3 Ирина Lerner RN RN ar6 Corrections: (The following items were deleted from the chart) 04:55 01:00 Reassessment: discharge delayed do to this nurse triaging and another critical vc1 patient needing my attention. vc1
[2023-11-16 00:48] VITALS: TEMP 98.6
[2023-11-16 00:49] VITALS: BP 106/89; O2SAT 98
== END 2023-11-16 00:41 | disposition home or self-care (01) ==
LOC: ER 19:29
DX: G89.29 Other chronic pain (principal); I10 Essential (primary) hypertension; I25.2 Old myocardial infarction; F17.210 Nicotine dependence, cigarettes, uncomplicated
CPT/HCPCS: 36415; 84484; 99284

== ENCOUNTER 2023-11-16 19:11 | Emergency (ER) | payer OTHER ==
[2023-11-16] MEDS ORDERED: HYDROCODONE/APAP 5/325 MG TAB ONE (19:29)
[2023-11-16] MEDS ORDERED: DIAZEPAM 5 MG TABLET ONE (19:30)
--- NOTE | 2023-11-16 19:31 | EDPHYS ---
Physician Documentation [facility] Name: Geetha Khan Age: 48 yrs Sex: Female : 1975 Arrival Date: 11/16/2023 Time: 19:11 Bed 19 Private MD: ED Physician Uriel Cannon HPI: 11/15 19:23 This 48 yrs old Female presents to ER via EMS with complaints of Chest Pain. sp4 20:35 Patient is 48-year-old female well-known to me from prior visits presents with acute sp4 onset chest pain, history of multiple prior visits for the same problem. . 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 - Infectious Disease History:: Denies. - Social history:: Smoking status: Patient reports the use of cigarette tobacco products, 2 CIGS A DAY, Patient/guardian denies using alcohol, street drugs, IV drugs. - Family history:: not pertinent. ROS: 20:35 Constitutional: Negative for fever, chills, and weight loss, sp4 20:35 All other systems are negative, Exam: 20:32 Constitutional: This is a well developed, well nourished patient who is awake, alert, sp4 and in no acute distress. Head/Face: Normocephalic, atraumatic. Eyes: Pupils equal round and reactive to light, extra-ocular motions intact. Lids and lashes normal. Conjunctiva and sclera are not injected. Cornea within normal limits. Periorbital areas with no swelling, redness, or edema. ENT: Nares patent. No nasal discharge, no septal abnormalities noted. Tympanic membranes are normal and external auditory canals are clear. Oropharynx with no redness, swelling, or masses, exudates, or evidence of obstruction, uvula midline. Mucous membranes moist. Neck: Trachea midline, no thyromegaly or masses palpated, and no cervical lymphadenopathy. Supple, full range of motion without nuchal rigidity, or vertebral point tenderness. Chest/axilla: Normal chest wall appearance and motion. Nontender with no deformity. No lesions are appreciated. Cardiovascular: Regular rate and rhythm with a normal S1 and S2. No gallops, murmurs, or rubs. Normal PMI, no JVD. No pulse deficits. Respiratory: Lungs have equal breath sounds bilaterally, clear to auscultation and percussion. No rales, rhonchi or wheezes noted. No increased work of breathing, no retractions or nasal flaring. Abdomen/GI: Soft, with normal bowel sounds. No distension or tympany. No guarding or rebound. No evidence of tenderness throughout. Back: No spinal tenderness. No costovertebral tenderness. Skin: Warm, dry with normal turgor. Normal color with no rashes, no lesions, and no evidence of cellulitis. MS/ Extremity: Pulses equal, no cyanosis. Neurovascular intact. Full, normal range of motion. Neuro: Awake and alert, GCS 15, oriented to person, place, time, and situation. Psych: Awake, alert, with orientation to person, place and time. Behavior, mood, and affect are within normal limits 20:32 ECG was reviewed by the Attending Physician. EG at 1930, sinus rhythm Rate 70, left ventricular hypertrophy, no acute changes Vital Signs: 19:19 BP 137 / 78; Pulse 68; Resp 16; Temp 98.2; Pulse Ox 100% ; Weight 77.11 kg; Height 5 jj7 ft. 2 in. ; 19:54 BP 112 / 76; Pulse 71; Resp 18; Temp 98.1; Pulse Ox 100% ; jj7 19:19 Body Mass Index 31.09 (77.11 kg, 157.48 cm) jj7 Mariluz Coma Score: 20:35 Eye Response: spontaneous(4). Motor Response: obeys commands(6). Verbal Response: sp4 oriented(5). Total: 15. MDM: 19:22 Patient medically screened. cp 20:35 Differential diagnosis: acute pericarditis, chest wall pain, costochondritis, sp4 esophagitis, gastritis. Data reviewed: vital signs, nurses notes, EMS record, old medical records, EKG. ED course: Patient stable for discharge home. Based on risk assessment there is no significant chance of acute coronary syndrome.. 11/15 19:23 Order name: EKG; Complete Time: 19: sp4 11/15 19:23 Order name: EKG - Nurse/Tech; Complete Time: 19:35 sp4 EC:32 Rate is 70 beats/min. Rhythm is regular, Normal Sinus Rhythm. QRS [place] is Normal. SC sp4 interval is normal. QRS interval is normal. QT interval is normal. No ST changes noted. Clinical impression: No evidence of ischemia. Interpreted by me. Reviewed by me. Administered Medications: :35 Drug: HYDROcodone-acetaminophen PO 5 mg-325 mg 1 tabs PO once Route: PO; jj7 19:53 Follow up: Response: No adverse reaction jj7 19:35 Drug: Diazepam PO 5 mg PO once Route: PO; jj7 19:53 Follow up: Response: No adverse reaction jj7 Disposition Summary: 11/16/23 19:30 Discharge Ordered Notes: Location: Home sp4 Problem: new sp4 Symptoms: have improved sp4 Condition: Stable sp4 Diagnosis - Chest pain, unspecified sp4 Followup: sp4 - With: Private Physician - When: As needed - Reason: Recheck today's complaints Discharge Instructions: - Discharge Summary Sheet sp4 - Nonspecific Chest Pain, Adult, [id number] sp4 Signatures: Michael Nguyen PA PA cp Johnson, Juwairiyah, RN RN jj7 Uriel Cannon MD MD sp4
--- NOTE | 2023-11-16 19:31 | ER ---
Nurse's Notes [facility] Name: Geetha Khan Age: 48 yrs Sex: Female : 1975 Arrival Date: 11/16/2023 Time: 19:11 Bed 19 Private MD: Diagnosis: Chest pain, unspecified Presentation: 11/15 19:19 Chief complaint: Patient states: CHEST PAIN EMS states: CHRONIC CHEST PAIN. SEEN ALMOST jj7 DAILY IN THE ER. Coronavirus screen: At this time, the client does not indicate any symptoms associated with coronavirus-19. Ebola Screen: No symptoms or risks identified at this time. Initial Sepsis Screen: Does the patient meet any 2 criteria? No. Patient's initial sepsis screen is negative. Does the patient have a suspected source of infection? No. Patient's initial sepsis screen is negative. Risk Assessment: Do you want to hurt yourself or someone else? Patient reports no desire to harm self or others. Onset of symptoms is unknown. 19:19 Method Of Arrival: EMS: [facility] 19:19 Acuity: CORRINA 4 jj7 Triage Assessment: 19:20 General: Appears in no apparent distress. comfortable, Behavior is calm, cooperative, jj7 appropriate for age. Pain: Complains of pain in chest. Cardiovascular: No deficits noted. Respiratory: No deficits noted. 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 - Infectious Disease History:: Denies. - Social history:: Smoking status: Patient reports the use of cigarette tobacco products, 2 CIGS A DAY, Patient/guardian denies using alcohol, street drugs, IV drugs. - Family history:: not pertinent. Screenin:22 [facility] ED Fall Risk Assessment (Adult) History of falling in the last 3 months, jj7 including since admission Yes- single mechanical fall (1 pt) Confusion or Disorientation No (0 pts) Intoxicated or Sedated No (0 pts) Impaired Gait Yes (1 pt) Mobility Assist Device Used Yes (1 pt) Altered Elimination No (0 pt) Score/Fall Risk Level 3 or more points = High Risk Oriented to surroundings, Maintained a safe environment, Educated pt \T\ family on fall prevention, incl call for assistance when getting out of bed, Assessed \T\ reinforced patient's understanding of fall precautions. Abuse screen: Denies threats or abuse. Nutritional screening: No deficits noted. Tuberculosis screening: No symptoms or risk factors identified. Assessment: 19:22 Reassessment: SEE TRIAGE ASSESSMENT. Pain: Complains of pain in chest Pain does not jj7 radiate. Pain began CHRONIC. Vital Signs: 19:19 BP 137 / 78; Pulse 68; Resp 16; Temp 98.2; Pulse Ox 100% ; Weight 77.11 kg; Height 5 j7 ft. 2 in. ; 19:54 BP 112 / 76; Pulse 71; Resp 18; Temp 98.1; Pulse Ox 100% ; jj7 19:19 Body Mass Index 31.09 (77.11 kg, 157.48 cm) jj7 [place] Coma Score: 20:35 Eye Response: spontaneous(4). Motor Response: obeys commands(6). Verbal Response: sp4 oriented(5). Total: 15. ED Course: 19:19 Patient arrived in ED. jj7 19:20 Triage completed. jj7 19:20 Arm band placed on right wrist. Patient placed in an exam room, in the treatment room. j7 19:22 Michael Nguyen PA is PHCP. cp 19:22 Uriel Cannon MD is Attending Physician. cp 19:22 Patient has correct armband on for positive identification. Bed in low position. Call jj7 light in reach. Side rails up X2. Provided Education on: USE OF CALL NEWBY. Client placed on continuous cardiac and pulse oximetry monitoring. NIBP monitoring applied. 19:22 No provider procedures requiring assistance completed. Patient maintains SpO2 jj7 saturation greater than 95% on room air. 19:23 Ernestine Nielson RN is Primary Nurse. jj7 19:42 EKG done, by ED staff. af3 19:54 Patient did not have IV access during this emergency room visit. jj7 Administered Medications: 19:35 Drug: HYDROcodone-acetaminophen PO 5 mg-325 mg 1 tabs PO once Route: PO; jj7 19:53 Follow up: Response: No adverse reaction jj7 19:35 Drug: Diazepam PO 5 mg PO once Route: PO; jj7 19:53 Follow up: Response: No adverse reaction jj7 Medication: 19:22 VIS not applicable for this client. jj7 Outcome: 19:30 Discharge ordered by MD. sullivan 19:54 Discharged to home via wheelchair, jj7 19:54 Condition: good 19:54 Discharge instructions given to patient, Instructed on discharge instructions, follow up and referral plans. Demonstrated understanding of instructions, follow-up care, 19:55 Patient left the ED. jj7 Signatures: Michael Nguyen PA PA cp Johnson, Juwairiyah, RN RN jj7 Uriel Cannon MD MD sp4 Gila Dia af3
[2023-11-16 20:09] VITALS: O2SAT 100
[2023-11-16 20:10] VITALS: BP 112/76; TEMP 98.1
--- NOTE | 2023-11-19 12:48 | EKG ---
Test Date: 2023-11-15 Test Time: 20:07:15 Python Java Developer: KARON MEASUREMENT RESULTS: Intervals: Rate: 66 ID: [id number] QRSD: 88 QT: 434 QTc: 454 [place]: P: 44 ID: [id number] QRS: -2 T: 140 INTERPRETIVE STATEMENTS: Sinus rhythm with premature supraventricular complexes and fusion complexes Left ventricular hypertrophy with repolarization abnormality Abnormal ECG Compared to ECG 11/12/2023 22:53:33 Atrial premature complex(es) now present Fusion complex(es) now present Ventricular premature complex(es) no longer present Electronically Signed On 11-19-23 12:42:20 CDT by Alan Garay
== END 2023-11-16 19:55 | disposition home or self-care (01) ==
LOC: ER 19:11
DX: R07.9 Chest pain, unspecified (principal); I10 Essential (primary) hypertension; I25.2 Old myocardial infarction; F17.210 Nicotine dependence, cigarettes, uncomplicated
CPT/HCPCS: 93005; 99284

== ENCOUNTER 2023-11-17 22:45 | Emergency (ER) | payer OTHER ==
[2023-11-18] MEDS ORDERED: DIAZEPAM 5 MG TABLET ONE (00:20)
[2023-11-18] MEDS ORDERED: HYDROCODONE/APAP 5/325 MG TAB ONE (00:20)
--- NOTE | 2023-11-18 00:37 | ER ---
Nurse's Notes [facility] Name: Geetha Khan Age: 48 yrs Sex: Female : 1975 Arrival Date: 11/17/2023 Time: 22:45 Bed 13 Private MD: Diagnosis: Other chronic pain Presentation: 11/16 22:52 Chief complaint: Patient states: "Fighting with my and my anxiety kicked in and vc1 started having chest pain, is Dr. Trevino here he knows my history.". Coronavirus screen: Client denies travel out of the [place] in the last 14 days. At this time, the client does not indicate any symptoms associated with coronavirus-19. Ebola Screen: Patient negative for fever greater than or equal to 101.5 degrees Fahrenheit, and additional compatible Ebola Virus Disease symptoms Patient denies exposure to infectious person. Patient denies travel to an Ebola-affected area in the 21 days before illness onset. No symptoms or risks identified at this time. Initial Sepsis Screen: Does the patient meet any 2 criteria? No. Patient's initial sepsis screen is negative. Does the patient have a suspected source of infection? No. Patient's initial sepsis screen is negative. Risk Assessment: Do you want to hurt yourself or someone else? Patient reports no desire to harm self or others. Onset of symptoms was November 17, 2023. 22:52 Method Of Arrival: Wheelchair vc1 22:52 Acuity: CORRINA 4 vc1 Triage Assessment: 23:24 General: Appears in no apparent distress. slender, unkempt, Behavior is cooperative, vc1 drowsy, Smells of urine. Pain: Complains of pain in chest Pain does not radiate. Pain currently is 10 out of 10 on a pain scale. EENT: No deficits noted. No signs and/or symptoms were reported regarding the EENT system. Neuro: Paralysis in left arm(s) leg(s). Cardiovascular: Chest pain is described as severe, "fighting with my and my anxiety kicked in making me have chest pain". Respiratory: Airway is patent Respiratory effort is even, unlabored, Respiratory pattern is regular, symmetrical, Breath sounds are clear bilaterally. GI: No deficits noted. No signs and/or symptoms were reported involving the gastrointestinal system. : Reports incontinence. Derm: Skin is intact, Skin is dry. Musculoskeletal: Circulation, motion, and sensation intact. Range of motion: limited in left shoulder and left hip. 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 - Infectious Disease History:: Denies. - Social history:: Smoking status: Patient reports the use of cigarette tobacco products, smokes one-half pack cigarettes per day. - Code Status:: Full code. Screenin:22 [facility] ED Fall Risk Assessment (Adult) History of falling in the last 3 months, pc2 including since admission Yes- single mechanical fall (1 pt) Confusion or Disorientation No (0 pts) Intoxicated or Sedated No (0 pts) Impaired Gait Yes (1 pt) Mobility Assist Device Used Yes (1 pt) Altered Elimination Yes (1 pt) Score/Fall Risk Level 3 or more points = High Risk Oriented to surroundings, Maintained a safe environment, Hourly rounding (assess needs \\T\\ fall precautionary measures) done. Abuse screen: Denies threats or abuse. Denies injuries from another. Nutritional screening: No deficits noted. Tuberculosis screening: No symptoms or risk factors identified. Assessment: 23:23 General: Appears in no apparent distress. unkempt, Behavior is calm, cooperative, pc2 appropriate for age. Pain: Complains of pain in chest Pain does not radiate. Pain currently is 10 out of 10 on a pain scale. Quality of pain is described as sharp, Pain began 1 hour ago. Neuro: Level of Consciousness is awake, alert, obeys commands, Oriented to person, place, time, situation, Appropriate for age. Cardiovascular: Heart tones S1 S2 Capillary refill < 3 seconds Patient's skin is warm and dry. Chest pain reports relief after taking nitroglycerin. Respiratory: Airway is patent Respiratory effort is even, unlabored, Respiratory pattern is regular, symmetrical. GI: No signs and/or symptoms were reported involving the gastrointestinal system. : Last void was November 17, 2023. Reports incontinence. EENT: No signs and/or symptoms were reported regarding the EENT system. Derm: No signs and/or symptoms reported regarding the dermatologic system. Musculoskeletal: Range of motion: limited in left arm. Vital Signs: 22:52 BP 129 / 99; Pulse 74; Resp 18; Temp 98.3; Pulse Ox 100% ; Weight 77.11 kg; Height 5 vc1 ft. 2 in. ; Pain 10/10; 23:25 BP 133 / 93; Pulse 71; Resp 18; Pulse Ox 100% on R/A; pc2 11/17 00:35 BP 129 / 92; Pulse 77; Resp 16; Pulse Ox 100% on R/A; pc2 11/16 22:52 Body Mass Index 31.09 (77.11 kg, 157.48 cm) vc1 11/16 22:52 Pain Scale: Adult vc1 ED Course: 11/16 22:46 Patient arrived in ED. ec2 22:51 Michael Nguyen PA is PHCP. cp 22:51 Russell Rodriguez MD is Attending Physician. cp 23:11 EKG done, by ED staff. af3 23:22 Triage completed. vc1 23:22 Shahnaz Mccollum, RN is Primary Nurse. pc2 23:23 Patient has correct armband on for positive identification. Placed in gown. Bed in low pc2 position. Call light in reach. Side rails up X2. Provided Education on: POC and time frame. 23:23 Client placed on continuous cardiac and pulse oximetry monitoring. NIBP monitoring pc2 applied. 23:26 Patient maintains SpO2 saturation greater than 95% on room air. pc2 23:26 No provider procedures requiring assistance completed. pc2 23:26 Arm band placed on right wrist. pc2 11/17 01:00 Patient did not have IV access during this emergency room visit. pc2 Administered Medications: 00:34 Drug: Diazepam PO 5 mg PO once Route: PO; pc2 01:00 Follow up: Response: No adverse reaction pc2 00:34 Drug: HYDROcodone-acetaminophen PO 5 mg-325 mg 1 tabs PO once Route: PO; pc2 01:00 Follow up: Response: No adverse reaction; Marked relief of symptoms pc2 Medication: 11/16 23:24 VIS not applicable for this client. vc1 Outcome: 11/17 00:37 Discharge ordered by . cp 01:00 Discharged to home via wheelchair, with significant other, pc2 01:00 Condition: stable 01:00 Discharge instructions given to patient, family, Instructed on discharge instructions, follow up and referral plans. Demonstrated understanding of instructions, follow-up care, 01:07 Patient left the ED. pc2 Signatures: Michael Nguyen PA PA cp Calcote, Vanessa, RN RN vc1 Russell Rodriguez MD MD ec2 Shahnaz Mccollum, RN RN pc2 Gila Dia3
--- NOTE | 2023-11-18 00:37 | EDPHYS ---
Physician Documentation [facility] Name: Geetha Khan Age: 48 yrs Sex: Female : 1975 Arrival Date: 11/17/2023 Time: 22:45 Bed 13 Private MD: ED Physician Russell Rodriguez HPI: 11/16 23:00 This 48 yrs old Female presents to ER via Wheelchair with complaints of Chest Pain. cp 23:00 The patient or guardian reports chest pain that is located primarily in the anterior cp chest wall. Onset: 1 hour(s) ago, after arguing with . 23:00 Associated signs and symptoms: Pertinent positives: anxiety, Pertinent negatives: cp abdominal pain, near syncope, shortness of breath, syncope, vomiting. 23:00 The chest pain is described as aching. cp 23:00 Duration: The patient or guardian reports a single episode, that is still ongoing, and cp unchanged. 23:00 The patient has been recently seen at the [facility] Emergency cp Department, for similar complaints multiple times recently. 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 - Infectious Disease History:: Denies. - Social history:: Smoking status: Patient reports the use of cigarette tobacco products, smokes one-half pack cigarettes per day. - Code Status:: Full code. ROS: 23:05 Constitutional: Negative for body aches, chills, fever, poor PO intake, cp 23:05 Eyes: Negative for injury, pain, redness, and discharge, cp 23:05 ENT: Negative for drainage from ear(s), ear pain, sore throat, difficulty swallowing, difficulty handling secretions, 23:05 Cardiovascular: Positive for chest pain, Negative for palpitations, 23:05 Respiratory: Negative for cough, shortness of breath, wheezing, 23:05 Abdomen/GI: Negative for abdominal pain, vomiting, diarrhea, constipation, 23:05 Back: Negative for pain at rest, pain with movement, 23:05 Neuro: Negative for altered mental status, dizziness, headache, weakness, 23:05 Psych: Positive for anxiety, 23:05 All other systems are negative, cp Exam: 23:10 Constitutional: The patient appears in no acute distress, alert, awake, cp non-diaphoretic, non-toxic, well developed, well nourished, 23:10 Head/Face: Normocephalic, atraumatic. cp 23:10 Eyes: Periorbital structures: appear normal, Conjunctiva: normal, no exudate, no injection, Sclera: no appreciated abnormality, Lids and lashes: appear normal, bilaterally, 23:10 ENT: External ear(s): are unremarkable, Nose: is normal, Mouth: Lips: moist, Oral mucosa: pink and intact, moist, Posterior pharynx: Airway: no evidence of obstruction, patent, 23:10 Neck: ROM/movement: is normal, is supple, without pain, no range of motions limitations, 23:10 Chest/axilla: Inspection: normal, 23:10 Cardiovascular: Rate: normal, Rhythm: regular, Edema: is not appreciated, JVD: is not appreciated, 23:10 Respiratory: the patient does not display signs of respiratory distress, Respirations: normal, no use of accessory muscles, no retractions, labored breathing, is not present, Breath sounds: are clear throughout, no decreased breath sounds, no stridor, no wheezing, 23:10 Abdomen/GI: Inspection: abdomen appears normal, Palpation: abdomen is soft and non-tender, in all quadrants, 23:10 Neuro: Orientation: to person, place \T\ time. Mentation: is normal, Motor: no acute changes, Sensation: no acute changes, 23:10 Psych: Behavior/mood is cooperative, Patient has no thoughts/intents to harm self or others. Judgement / Insight is normal. Delusions/hallucinations are not present. 23:12 ECG was reviewed by the Attending Physician. cp Vital Signs: 22:52 BP 129 / 99; Pulse 74; Resp 18; Temp 98.3; Pulse Ox 100% ; Weight 77.11 kg; Height 5 vc1 ft. 2 in. ; Pain 10/10; 23:25 BP 133 / 93; Pulse 71; Resp 18; Pulse Ox 100% on R/A; pc2 11/17 00:35 BP 129 / 92; Pulse 77; Resp 16; Pulse Ox 100% on R/A; pc2 11/16 22:52 Body Mass Index 31.09 (77.11 kg, 157.48 cm) vc1 11/16 22:52 Pain Scale: Adult vc1 MDM: 00:37 Patient medically screened. 00:37 Data reviewed: vital signs, nurses notes, EKG, and as a result, I will discharge cp patient. 00:37 Differential diagnosis: abnormal EKG, acute myocardial infarction, pericarditis, cp pleurisy, pneumonia, pneumothorax, pulmonary embolus, stable angina, thoracic aortic disection, unstable angina. I considered the following discharge prescriptions or medication management in the emergency department Medications were administered in the Emergency Department. See MAR. Independent interpretation of the following test(s) in the Emergency Department EKG: See my EKG interpretation above. Counseling: I had a detailed discussion with the patient and/or guardian regarding the historical points, exam findings, and any diagnostic results supporting the discharge/admit diagnosis, to return to the emergency department if symptoms worsen or persist or if there are any questions or concerns that arise at home. Response to treatment: the patient's symptoms have markedly improved after treatment, and as a result, I will discharge patient. 11/16 22:57 Order name: EKG; Complete Time: 22:58 cp 11/16 22:57 Order name: EKG - Nurse/Tech; Complete Time: 23:11 cp EC/01 23:12 Rate is 69 beats/min. Rhythm is regular. IN interval is prolonged at 212 msec. QRS cp interval is normal. QT interval is normal. T waves are Inverted in leads I, aVL, V2. Clinical impression: Abnormal EKG without significant change. Interpreted by me. Reviewed by me. Administered Medications: 11/17 00:34 Drug: Diazepam PO 5 mg PO once Route: PO; pc2 01:00 Follow up: Response: No adverse reaction pc2 00:34 Drug: HYDROcodone-acetaminophen PO 5 mg-325 mg 1 tabs PO once Route: PO; pc2 01:00 Follow up: Response: No adverse reaction; Marked relief of symptoms pc2 Disposition Summary: 11/18/23 00:37 Discharge Ordered Notes: Location: Home cp Problem: an ongoing problem cp Symptoms: have improved cp Condition: Stable cp Diagnosis - Other chronic pain cp Followup: cp - With: Private Physician - When: 1 - 2 days - Reason: Recheck today's complaints Discharge Instructions: - Discharge Summary Sheet cp - Chronic Pain, Adult cp Forms: - Medication Reconciliation Form cp - Antibiotic Education cp - Prescription Opioid Use cp - Patient Portal Instructions cp - Leadership Thank You Letter cp Addendum: 11/24/2023 20:33 I was immediately available for consultation during this patient's visit. I did not e c2 personally see the patient or discuss the patient with the SEGUN. . Signatures: Michael Nguyen PA PA cp Syeda Bruce RN RN vc1 Russell Rodriguez MD MD ec2 Shahnaz Mccollum, RN RN pc2 Corrections: (The following items were deleted from the chart) 11/18 00:58 11/16 23:05 All other systems are negative, cp cp
[2023-11-18 01:11] VITALS: TEMP 98.3; O2SAT 100
[2023-11-18 01:15] VITALS: BP 129/92
--- NOTE | 2023-11-19 12:40 | EKG ---
Test Date: 2023-11-17 Test Time: 23:07:36 Sr. Director: AF MEASUREMENT RESULTS: Intervals: Rate: 69 [place]: 212 QRSD: 92 QT: 430 QTc: 460 [place]: P: 55 [place]: 212 QRS: 3 T: 137 INTERPRETIVE STATEMENTS: Sinus rhythm with 1st degree AV block Left ventricular hypertrophy with repolarization abnormality Abnormal ECG Compared to ECG 11/16/2023 19:30:07 First degree AV block now present Electronically Signed On 11-19-23 12:37:27 CDT by Alan Garay
== END 2023-11-18 01:07 | disposition home or self-care (01) ==
LOC: ER 22:45
DX: G89.29 Other chronic pain (principal); F41.9 Anxiety disorder, unspecified; I10 Essential (primary) hypertension; J44.9 Chronic obstructive pulmonary disease, unspecified; F17.210 Nicotine dependence, cigarettes, uncomplicated
CPT/HCPCS: 93005; 99284

== ENCOUNTER 2023-11-18 17:26 | Emergency (ER) | payer OTHER ==
[2023-11-18] MEDS ORDERED: ACETAMINOPHEN 325 MG TABLET ONE (17:44)
[2023-11-18] MEDS ORDERED: DIAZEPAM 5 MG TABLET ONE (17:45)
[2023-11-18] MEDS ORDERED: TRAMADOL HCL 50 MG TAB ONE (17:45)
--- NOTE | 2023-11-18 19:04 | ER ---
Nurse's Notes [facility] Name: Geetha Khan Age: 48 yrs Sex: Female : 1975 Arrival Date: 11/18/2023 Time: 17:26 Bed 8 Private MD: Diagnosis: Other chronic pain Presentation: 11/17 17:32 Chief complaint: EMS states: Chest pain, did not want to take nitro because her bp was ko1 low. BP is 118/83. Coronavirus screen: At this time, the client does not indicate any symptoms associated with coronavirus-19. Ebola Screen: No symptoms or risks identified at this time. Initial Sepsis Screen: Does the patient meet any 2 criteria? No. Patient's initial sepsis screen is negative. Does the patient have a suspected source of infection? No. Patient's initial sepsis screen is negative. Risk Assessment: Do you want to hurt yourself or someone else? Patient reports no desire to harm self or others. Onset of symptoms is unknown. 17:32 Method Of Arrival: EMS: [facility] ko1 17:32 Acuity: CORRINA 3 ko1 Triage Assessment: 17:34 General: Appears in no apparent distress. Behavior is cooperative. Pain: Complains of ko1 pain in chest. 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 - Infectious Disease History:: Denies. - Social history:: Smoking status: Patient/guardian denies using tobacco, but has a distant history of tobacco abuse. Screenin:51 [facility] ED Fall Risk Assessment (Adult) History of falling in the last 3 months, kc6 including since admission No falls in past 3 months (0 pts) Confusion or Disorientation No (0 pts) Intoxicated or Sedated No (0 pts) Impaired Gait Yes (1 pt) Mobility Assist Device Used Yes (1 pt) Altered Elimination No (0 pt) Score/Fall Risk Level 0 - 2 = Low Risk Oriented to surroundings. Abuse screen: Denies threats or abuse. Denies injuries from another. Nutritional screening: No deficits noted. Tuberculosis screening: No symptoms or risk factors identified. Assessment: 17:52 General: Appears in no apparent distress. comfortable, well groomed, well developed, kc6 Behavior is calm, cooperative, appropriate for age. Pain: Complains of pain in mid-sternal area. Neuro: Level of Consciousness is awake, alert, obeys commands, Oriented to person, place, time, situation, Appropriate for age. Cardiovascular: Reports chest pain, Denies shortness of breath, Heart tones S1 S2 present Capillary refill < 3 seconds Rhythm is sinus rhythm. Respiratory: Airway is patent Trachea midline Respiratory effort is even, unlabored, Respiratory pattern is regular, symmetrical. GI: No signs and/or symptoms were reported involving the gastrointestinal system. : No signs and/or symptoms were reported regarding the genitourinary system. EENT: No signs and/or symptoms were reported regarding the EENT system. Derm: No signs and/or symptoms reported regarding the dermatologic system. Skin is intact, is healthy with good turgor, Skin is pink, warm \T\ dry. Musculoskeletal: No signs and/or symptoms reported regarding the musculoskeletal system. Capillary refill < 3 seconds. 18:52 Reassessment: Patient appears in no apparent distress at this time. No changes from kc6 previously documented assessment. Patient and/or family updated on plan of care and expected duration. Pain level reassessed. Patient is alert, oriented x 3, equal unlabored respirations, skin warm/dry/pink. 19:11 Reassessment: Patient appears in no apparent distress at this time. being discharged at al5 this time. Vital Signs: 17:32 BP 118 / 83; Pulse 77; Resp 14; Temp 97; Pulse Ox 98% on R/A; ko1 18:37 BP 134 / 97; kc6 19:10 BP 148 / 98; Pulse 80; Resp 16; Pulse Ox 99% ; al5 ED Course: 17:27 Patient arrived in ED. dd2 17:27 Kye De Anda MD is Attending Physician. bp 17:28 Michael Nguyen PA is PHCP. cp 17:28 Kye De Anda MD is Attending Physician. cp 17:34 Triage completed. ko1 17:34 Arm band placed on right wrist. Patient placed in an exam room, on a stretcher, on ko1 night monitor, on pulse oximetry, Patient notified of wait time. 17:37 Cate Melchor, RN is Primary Nurse. kc6 17:51 Patient has correct armband on for positive identification. Bed in low position. Call kc6 light in reach. Side rails up X2. compliance monitor on. Pulse ox on. NIBP on. Door closed. Noise minimized. Lights dimmed. Warm blanket given. Pillow given. 19:01 Report given to YANETH López \T\ YANETH Guadalupe. kc6 19:12 Provided Education on: discharge follow up. al5 19:12 No provider procedures requiring assistance completed. Patient did not have IV access al5 during this emergency room visit. Administered Medications: 17:51 Drug: Acetaminophen PO 650 mg PO once Route: PO; kc6 18:37 Follow up: Response: No adverse reaction kc6 17:51 Drug: traMADol PO 50 mg PO once Route: PO; kc6 18:37 Follow up: Response: No adverse reaction kc6 17:51 Drug: Diazepam PO 5 mg PO once Route: PO; kc6 18:37 Follow up: Response: No adverse reaction kc6 Medication: 19:12 VIS not applicable for this client. al5 Outcome: 19:04 Discharge ordered by MD. cp 19:12 Discharged to home via wheelchair, al5 19:12 Condition: good 19:12 Discharge instructions given to patient, Instructed on discharge instructions, follow up and referral plans. Demonstrated understanding of instructions, follow-up care, 19:12 Patient left the ED. al5 Signatures: Michael Nguyen PA PA cp Wayne Sahu RN RN bp Cate Melchor, RN RN kc6 Toya Huerta RN RN ko1 Anayeli Otero RN RN al5 MAGGIE GIBSON RN RN dd2
--- NOTE | 2023-11-18 19:04 | EDPHYS ---
Physician Documentation [facility] Name: Geetha Khan Age: 48 yrs Sex: Female : 1975 Arrival Date: 11/18/2023 Time: 17:26 Bed 8 Private MD: ED Physician Kye De Anda HPI: 11/17 17:40 This 48 yrs old Female presents to ER via EMS with complaints of Chest Pain. cp 17:40 The patient or guardian reports chest pain that is located primarily in the anterior cp chest wall. Onset: just prior to arrival. 17:40 The pain does not radiate. Associated signs and symptoms: Pertinent negatives: cp abdominal pain, cough, diaphoresis, shortness of breath, syncope. The chest pain is described as constant. Duration: The patient or guardian reports a single episode, that is still ongoing, and unchanged. The patient has experienced similar episodes in the past, chronically. 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 - Infectious Disease History:: Denies. - Social history:: Smoking status: Patient/guardian denies using tobacco, but has a distant history of tobacco abuse. ROS: 17:45 Constitutional: Negative for body aches, chills, fever, poor PO intake, cp 17:45 Eyes: Negative for injury, pain, redness, and discharge, cp 17:45 Cardiovascular: Positive for chest pain, Negative for edema, palpitations, 17:45 Respiratory: Negative for cough, shortness of breath, wheezing, 17:45 Abdomen/GI: Negative for abdominal pain, nausea, vomiting, and diarrhea, 17:45 Neuro: Negative for altered mental status, dizziness, headache, weakness, 17:45 All other systems are negative, Exam: 17:50 Constitutional: The patient appears in no acute distress, alert, awake, cp non-diaphoretic, non-toxic, well developed, well nourished, 17:50 Head/Face: Normocephalic, atraumatic. cp 17:50 Eyes: Periorbital structures: appear normal, Conjunctiva: normal, no exudate, no injection, Sclera: no appreciated abnormality, Lids and lashes: appear normal, bilaterally, 17:50 ENT: External ear(s): are unremarkable, Nose: is normal, Mouth: Lips: moist, Oral mucosa: moist, Posterior pharynx: Airway: no evidence of obstruction, patent, 17:50 Neck: ROM/movement: is normal, is supple, without pain, no range of motions limitations, 17:50 Chest/axilla: Inspection: normal, 17:50 Cardiovascular: Rate: normal, Rhythm: regular, JVD: is not appreciated, 17:50 Respiratory: the patient does not display signs of respiratory distress, Respirations: normal, no use of accessory muscles, no retractions, labored breathing, is not present, intercostal retractions, are absent, Breath sounds: are clear throughout, no decreased breath sounds, no stridor, no wheezing, 17:50 Abdomen/GI: Inspection: abdomen appears normal, Palpation: abdomen is soft and non-tender, in all quadrants, 17:50 Back: pain, is absent, ROM is normal, 17:50 Neuro: Orientation: to person, place \T\ time. Mentation: is normal, Motor: no acute changes, Sensation: no acute changes, 17:57 ECG was reviewed by the Attending Physician. Vital Signs: 17:32 BP 118 / 83; Pulse 77; Resp 14; Temp 97; Pulse Ox 98% on R/A; ko1 18:37 BP 134 / 97; kc6 19:10 BP 148 / 98; Pulse 80; Resp 16; Pulse Ox 99% ; al5 MDM: 17:28 Patient medically screened. 19:03 Data reviewed: vital signs, nurses notes, EKG, and as a result, I will discharge cp patient. 19:03 Differential diagnosis: abnormal EKG, acute myocardial infarction, pleurisy, pneumonia, cp pneumothorax, stable angina, unstable angina. I considered the following discharge prescriptions or medication management in the emergency department Medications were administered in the Emergency Department. See MAR. Care significantly affected by the following chronic conditions: Hypertension, Chronic Obstructive Pulmonary Disease. Counseling: I had a detailed discussion with the patient and/or guardian regarding the historical points, exam findings, and any diagnostic results supporting the discharge/admit diagnosis, to return to the emergency department if symptoms worsen or persist or if there are any questions or concerns that arise at home. Response to treatment: the patient's symptoms have markedly improved after treatment, and as a result, I will discharge patient. 11/17 17:36 Order name: EKG; Complete Time: 17:37 cp 11/17 17:36 Order name: EKG - Nurse/Tech; Complete Time: 17:51 cp EC:57 Rate is 71 beats/min. Rhythm is regular. CA interval is prolonged at 204 msec. QRS cp interval is normal. QT interval is normal. T waves are Inverted in leads I, aVL. Interpreted by me. Reviewed by me. Administered Medications: 17:51 Drug: Acetaminophen PO 650 mg PO once Route: PO; kc6 18:37 Follow up: Response: No adverse reaction 6 17:51 Drug: traMADol PO 50 mg PO once Route: PO; kc6 18:37 Follow up: Response: No adverse reaction 6 17:51 Drug: Diazepam PO 5 mg PO once Route: PO; kc6 18:37 Follow up: Response: No adverse reaction kc6 Disposition: 11/18 13:27 Co-signature as Attending Physician, Kye De Anda MD I reviewed the patient's care rt provided by the Advanced Practice Provider and agree with the diagnosis and treatment plan. Disposition Summary: 11/18/23 19:04 Discharge Ordered Notes: Location: Home cp Problem: chronic cp Symptoms: have improved cp Condition: Stable cp Diagnosis - Other chronic pain cp Followup: cp - With: Private Physician - When: 1 - 2 days - Reason: Recheck today's complaints Discharge Instructions: - Discharge Summary Sheet cp - Chronic Pain, Adult cp Forms: - Medication Reconciliation Form cp - Antibiotic Education cp - Prescription Opioid Use cp - Patient Portal Instructions cp - Leadership Thank You Letter cp Signatures: Michael Nguyen PA PA cp Campbell, Kaitlyn RN RN kc6 Toya Huerta RN RN ko1 Kye De Anda MD MD rt
[2023-11-18 19:18] VITALS: TEMP 97
[2023-11-18 19:20] VITALS: BP 148/98; O2SAT 99
--- NOTE | 2023-11-19 12:37 | EKG ---
Test Date: 2023-11-18 Test Time: 17:51:16 Financial Planning Consultant: HERNANDO MEASUREMENT RESULTS: Intervals: Rate: 71 ME: 204 QRSD: 88 QT: 416 QTc: 452 [place]: P: 49 ME: 204 QRS: 4 T: 146 INTERPRETIVE STATEMENTS: Normal sinus rhythm Minimal voltage criteria for LVH, may be normal variant Cannot rule out Anterior infarct, age undetermined ST & T wave abnormality, consider inferolateral ischemia Abnormal ECG Compared to ECG 11/15/2023 20:07:15 Myocardial infarct finding now present ST (T wave) deviation now present Possible ischemia now present Atrial premature complex(es) no longer present Fusion complex(es) no longer present Early repolarization no longer present Electronically Signed On 11-19-23 12:36:07 CDT by Alan Garay
--- NOTE | 2023-11-19 12:45 | EKG ---
Test Date: 2023-11-16 Test Time: 19:30:07 Asbestos Cement Sheet Supervisor: AF MEASUREMENT RESULTS: Intervals: Rate: 70 [place]: 206 QRSD: 92 QT: 432 QTc: 466 [place]: P: 53 [place]: 206 QRS: 17 T: 150 INTERPRETIVE STATEMENTS: Normal sinus rhythm Left ventricular hypertrophy with repolarization abnormality Abnormal ECG Compared to ECG 11/15/2023 20:07:15 Atrial premature complex(es) no longer present Fusion complex(es) no longer present Electronically Signed On 11-19-23 12:40:56 CDT by Alan Garay
== END 2023-11-18 19:12 | disposition home or self-care (01) ==
LOC: ER 17:26
DX: G89.29 Other chronic pain (principal); I10 Essential (primary) hypertension; J44.9 Chronic obstructive pulmonary disease, unspecified
CPT/HCPCS: 93005; 99284

== ENCOUNTER 2023-11-19 19:30 | Emergency (ER) | payer OTHER ==
[2023-11-19] MEDS ORDERED: hydrOXYzine HCL 25 MG TAB ONE (20:00)
--- NOTE | 2023-11-19 20:43 | EDPHYS ---
Physician Documentation [facility] Name: Geetha Khan Age: 48 yrs Sex: Female : 1975 Arrival Date: 11/19/2023 Time: 19:30 Bed 17 Private MD: ED Physician Kye De Anda HPI: 11/18 20:37 This 48 yrs old Female presents to ER via Unassigned with complaints of Chest Pain. 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 States kb chest pain is similar to previous chronic chest pain. Denies shortness of breath. 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 - Infectious Disease History:: Denies. - Social history:: Smoking status: Patient reports the use of cigarette tobacco products, smokes one pack cigarettes per day. ROS: 20:37 Constitutional: As per HPI kb Exam: 20:37 Constitutional: This is a well developed, well nourished patient who is awake, alert, kb and in no acute distress. Head/Face: Normocephalic, atraumatic. ENT: Moist Mucous membranes Cardiovascular: Regular rate Respiratory: Respirations even and unlabored. No increased work of breathing. Talking in full sentences Skin: Warm, dry with normal turgor. Normal color. MS/ Extremity: Pulses equal, no cyanosis. Neurovascular intact. Full, normal range of motion. Neuro: Awake and alert, GCS 15, oriented to person, place, time, and situation. Moves all extremities. Normal gait. 20:38 ECG was reviewed by the Attending Physician. kb Vital Signs: 19:35 BP 134 / 94; Pulse 71; Resp 19; Temp 98; Pulse Ox 98% ; Weight 77.11 kg; Height 5 ft. 2 me1 in. ; Pain 10/10; 20:15 BP 129 / 89; Pulse 69; Resp 16; Pulse Ox 96% ; me1 21:00 BP 129 / 89; Pulse 65; Resp 16; Temp 98; Pulse Ox 96% ; me1 19:35 Body Mass Index 31.09 (77.11 kg, 157.48 cm) me1 19:35 Pain Scale: Adult me1 MDM: 19:33 Patient medically screened. kb 20:36 Differential diagnosis: arrhythmia, MT, anxiety. Data reviewed: vital signs, nurses kb notes. Test considered but Not performed: X-ray: CXR considered but this pain is similar to pt's chronic chest pain, lungs clear. Historians other than the Patient: EMS: [facility]. Counseling: I had a detailed discussion with the patient and/or guardian regarding the historical points, exam findings, and any diagnostic results supporting the discharge/admit diagnosis, lab results, the need for outpatient follow up, a museum technician, a family practitioner, to return to the emergency department if symptoms worsen or persist or if there are any questions or concerns that arise at home. ED course: Troponin similar to previous visits. 11/18 19:33 Order name: Troponin HS; Complete Time: 20:34 kb 11/18 19:33 Order name: EKG; Complete Time: 19:34 kb 11/18 19:33 Order name: EKG - Nurse/Tech; Complete Time: 20:12 kb EC:38 Rate is 69 beats/min. Rhythm is regular. QRS [place] is Normal. [place] interval is prolonged kb at 212 msec. QRS interval is normal at 90 msec. QT interval is normal at 462 msec. Administered Medications: 20:02 Drug: hydrOXYzine PO 25 mg PO once Route: PO; tm6 21:26 Follow up: Response: No adverse reaction; Anxiety decreased me1 21:23 Drug: Acetaminophen PO 650 mg PO once Route: PO; me1 21:25 Follow up: Response: No adverse reaction me1 Disposition Summary: 11/19/23 20:43 Discharge Ordered Notes: Location: Home kb Condition: Stable kb Diagnosis - Chest pain, unspecified kb Followup: kb - With: Emergency Department - When: As needed - Reason: Worsening of condition Followup: kb - With: Private Physician - When: 2 - 3 days - Reason: Recheck today's complaints, Continuance of care, Re-evaluation by your physician Discharge Instructions: - Discharge Summary Sheet kb - Nonspecific Chest Pain, Adult, [id number] kb Forms: - Medication Reconciliation Form kb - Antibiotic Education kb - Prescription Opioid Use kb - Patient Portal Instructions kb - Leadership Thank You Letter kb Addendum: 11/24/2023 08:52 Co-signature as Attending Physician, Kye De Anda MD I reviewed the patient's care r t provided by the Advanced Practice Provider and agree with the diagnosis and treatment plan. Signatures: Dispatcher [employer] EDKathy Contreras, ORTHOTICS PROSTHETICS ASSISTANT-C ORTHOTICS PROSTHETICS ASSISTANT-Ckb Kye De Anda MD MD rt Nohemy Clark, RN RN me1 Greg Allen RN RN tm6
--- NOTE | 2023-11-19 20:43 | ER ---
Nurse's Notes [facility] Name: Geetha Khan Age: 48 yrs Sex: Female : 1975 Arrival Date: 11/19/2023 Time: 19:30 Bed 17 Private MD: Diagnosis: Chest pain, unspecified Presentation: 11/18 19:35 Chief complaint: EMS states: toned out for cp and sob. Coronavirus screen: Vaccine me1 status: Patient reports being unvaccinated. Ebola Screen: No symptoms or risks identified at this time. Initial Sepsis Screen: Does the patient meet any 2 criteria? No. Patient's initial sepsis screen is negative. Does the patient have a suspected source of infection? No. Patient's initial sepsis screen is negative. Risk Assessment: Do you want to hurt yourself or someone else? Patient reports no desire to harm self or others. Onset of symptoms was November 19, 2023. 19:35 Method Of Arrival: EMS: [facility] [place] Acuity: CORRINA 4 me1 Triage Assessment: 19:35 General: Appears uncomfortable, unkempt, well developed, well nourished, Behavior is me1 calm, cooperative, appropriate for age, Reports c/o cp and sob. Pain: Complains of pain in chest Pain does not radiate. Pain currently is 10 out of 10 on a pain scale. Quality of pain is described as heavy, Pain began Is continuous. 19:35 EENT: No signs and/or symptoms were reported regarding the EENT system. Neuro: Level of me1 Consciousness is awake, alert, obeys commands, Oriented to person, place, time, situation, Appropriate for age. Cardiovascular: Patient's skin is warm and dry. Respiratory: Airway is patent Respiratory effort is even, unlabored, Respiratory pattern is regular, symmetrical. Respiratory: Reports shortness of breath. GI: No signs and/or symptoms were reported involving the gastrointestinal system. : No signs and/or symptoms were reported regarding the genitourinary system. Derm: Skin is intact, is healthy with good turgor, Skin is pink, warm \T\ dry. Musculoskeletal: No signs and/or symptoms reported regarding the musculoskeletal system. 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 - Infectious Disease History:: Denies. - Social history:: Smoking status: Patient reports the use of cigarette tobacco products, smokes one pack cigarettes per day. Screenin:30 [facility] ED Fall Risk Assessment (Adult) History of falling in the last 3 months, me1 including since admission No falls in past 3 months (0 pts) Confusion or Disorientation No (0 pts) Intoxicated or Sedated No (0 pts) Impaired Gait Yes (1 pt) Mobility Assist Device Used Yes (1 pt) Altered Elimination Yes (1 pt) Score/Fall Risk Level 0 - 2 = Low Risk Maintained a safe environment, Provided non-skid footwear, Hourly rounding (assess needs \T\ fall precautionary measures) done. Abuse screen: Denies threats or abuse. Nutritional screening: No deficits noted. Tuberculosis screening: No symptoms or risk factors identified. Assessment: 19:30 General: See triage assessment. . Pain: Complains of pain in chest. me1 Vital Signs: 19:35 BP 134 / 94; Pulse 71; Resp 19; Temp 98; Pulse Ox 98% ; Weight 77.11 kg; Height 5 ft. 2 me1 in. ; Pain 10/10; 20:15 BP 129 / 89; Pulse 69; Resp 16; Pulse Ox 96% ; me1 21:00 BP 129 / 89; Pulse 65; Resp 16; Temp 98; Pulse Ox 96% ; me1 19:35 Body Mass Index 31.09 (77.11 kg, 157.48 cm) me1 19:35 Pain Scale: Adult nd1 ED Course: 19:30 No provider procedures requiring assistance completed. Patient did not have IV access me1 during this emergency room visit. Patient maintains SpO2 saturation greater than 95% on room air. 19:30 Patient has correct armband on for positive identification. Bed in low position. Call me1 light in reach. Side rails up X2. Provided Education on: POC. Verbalized understanding. . Client placed on continuous cardiac and pulse oximetry monitoring. NIBP monitoring applied. Pulse ox on. NIBP on. 19:31 Patient arrived in ED. jj6 19:33 Kathy Kerns FNP-C is [facility]. kb 19:33 Kye De Anda MD is Attending Physician. kb 19:35 Arm band placed on Patient placed in an exam room. me1 19:40 Greg Allen, RN is Primary Nurse. tm6 20:02 Troponin HS Sent. tm6 20:12 EKG done, by ED staff, reviewed by Kathy ENCINAS. tm6 21:28 Triage completed. me1 Administered Medications: 20:02 Drug: hydrOXYzine PO 25 mg PO once Route: PO; tm6 21:26 Follow up: Response: No adverse reaction; Anxiety decreased me1 21:23 Drug: Acetaminophen PO 650 mg PO once Route: PO; me1 21:25 Follow up: Response: No adverse reaction me1 Medication: 19:30 VIS not applicable for this client. me1 Outcome: 20:43 Discharge ordered by MD. kb 21:36 Discharged to home via wheelchair, with family, me1 21:36 Condition: stable 21:36 Discharge instructions given to patient, family, Instructed on discharge instructions, follow up and referral plans. Demonstrated understanding of instructions, follow-up care, 21:37 Patient left the ED. me1 Signatures: Kathy Kerns FNP-C FNP-Ckb Jeffries, Jennifer jj6 Nohemy Clark RN RN me1 Greg Allen, YANETH RN tm6
[2023-11-19] MEDS ORDERED: ACETAMINOPHEN 325 MG TABLET ONE (20:58)
[2023-11-19 22:01] VITALS: TEMP 98
[2023-11-19 22:03] VITALS: BP 129/89; O2SAT 96
--- NOTE | 2023-11-20 12:08 | EKG ---
Test Date: 2023-11-19 Test Time: 20:08:42 Knitting Machine Tender: KAORN MEASUREMENT RESULTS: Intervals: Rate: 69 [place]: 212 QRSD: 90 QT: 432 QTc: 462 [place]: P: 37 [place]: 212 QRS: -5 T: 152 INTERPRETIVE STATEMENTS: Sinus rhythm with 1st degree AV block Left ventricular hypertrophy with repolarization abnormality Abnormal ECG Compared to ECG 11/18/2023 17:51:16 First degree AV block now present Early repolarization now present Myocardial infarct finding no longer present ST (T wave) deviation no longer present Possible ischemia no longer present Electronically Signed On 11-20-23 12:06:19 CDT by Alan Garay
== END 2023-11-19 21:37 | disposition home or self-care (01) ==
LOC: ER 19:30
DX: R07.9 Chest pain, unspecified (principal); I10 Essential (primary) hypertension; I25.2 Old myocardial infarction; F17.210 Nicotine dependence, cigarettes, uncomplicated
CPT/HCPCS: 36415; 84484; 93005; 99284

== ENCOUNTER 2023-11-20 18:04 | Emergency (ER) | payer OTHER ==
[2023-11-20] MEDS ORDERED: hydrOXYzine HCL 25 MG TAB ONE (18:36)
[2023-11-20 18:59] LABS: Absolute Lymphocytes (CBC) 0.9 K/uL (0.7-4.9); Absolute Monocytes 0.3 K/uL (0.1-1.3); Absolute Neutrophil 2.4 K/uL (1.8-8.0); Basophils % 0.6 % (0-1.3); Eosinophils % 1.4 % (0-4.4); Hematocrit 30.4 % (36.0-45.0); Hemoglobin 10.5 g/dL (12.0-15.0); Lymphocytes % 24.9 % (15.3-44.8); MCH 35.3 pg (27.0-35.0); MCHC 34.4 g/dL (32.0-36.0); MCV 102.6 fL (80-100); MPV 6.6 fL (7.6-11.3); Monocytes % 7.1 % (3.3-12.3); Nucleated Red Blood Cells % 0.2 % (0-0); Platelets 169 thou/uL (152-406); RBC Red Blood Cell Count 2.96 M/uL (3.86-4.86); Red Cell Distribution Width 13.9 % (12.1-15.2)
--- NOTE | 2023-11-20 19:03 | RAD REPORT ---
EXAM DESCRIPTION: [place] Single View11/20/2023 6:52 pm CLINICAL HISTORY: Chest pain COMPARISON: October 2023 FINDINGS: The lungs appear clear of acute infiltrate. The heart is normal size Subacute rib fractures IMPRESSION: No acute abnormalities displayed
[2023-11-20 19:22] LABS: ALT/SGPT 20 U/L (13-56); AST/SGOT 19 U/L (15-37); Albumin 3.1 g/dL (3.4-5.0); Albumin/Globulin Ratio 1.1 (1.1-1.8); Alkaline Phosphatase 176 U/L (45-117); Anion Gap 9.2 mEq/L (5.0-15.0); BUN Blood Urea Nitrogen 14 mg/dL (7-18); Bicarbonate 24 mEq/L (21-32); Bilirubin Total < 0.2 mg/dL (0.2-1.0); Globulin 2.7 g/dL (2.3-3.5); Glomerular Filtration Rate 44 ml/min (=/>90); Glucose Level 79 mg/dL (74-106); NT PRO-BNP 1525 pg/mL (<125); Potassium 4.2 mEq/L (3.5-5.1); Protein, Total 5.8 g/dL (6.4-8.2); Sodium Level 136 mEq/L (136-145); Troponin High Sensitivity 34.6 pg/mL (<58.9)
--- NOTE | 2023-11-20 19:33 | EDPHYS ---
Physician Documentation [facility] Name: Geetha Khan Age: 48 yrs Sex: Female : 1975 Arrival Date: 11/20/2023 Time: 18:04 Bed 20 Private MD: ED Physician Sylvia Barker HPI: 11/19 18:12 This 48 yrs old Female presents to ER via Unassigned with complaints of chest pain. sd2 18:12 48 yo F presents via EMS with CC of stabbing chest pain that moves from side to side of sd2 her chest. No associated SOB, n/v or diaphoresis. Reports seeing cardiology today who checked her and performed an EKG and said there were no issues with her heart. Pt took ASA, tylenol, ibuprofen and nitro without relief. Of note, pt has been to ER numerous times, almost daily for the same symptoms. . Historical: - Allergies: 18:30 Aspirin; kj2 18:30 CRANBERRY; kj2 18:30 FISH PRODUCT DERIVATIVES; kj2 18:30 GRAPEFRUIT; kj2 18:30 mushrooms; kj2 - Immunization history:: Adult Immunizations up to date. - Infectious Disease History:: Denies. - Social history:: Smoking status: unknown. ROS: 18:12 Constitutional: Negative for fever, chills, and weight loss, Eyes: Negative for injury, sd2 pain, redness, and discharge, 18:12 Respiratory: Negative for shortness of breath, cough, wheezing. Abdomen/GI: Negative for abdominal pain, nausea, vomiting, diarrhea. MS/Extremity: Negative for injury and deformity, Skin: Negative for injury, rash, and discoloration, Neuro: Negative for headache, numbness and tingling. 18:12 Cardiovascular: Positive for chest pain, Negative for edema, palpitations, Exam: 18:12 Constitutional: This is a well developed, well nourished patient who is awake, alert, sd2 and in no acute distress. Head/Face: Normocephalic, atraumatic. Eyes: EOMI, normal conjunctiva bilaterally Chest/axilla: Normal chest wall appearance and motion. Nontender with no deformity. Cardiovascular: Regular rate and rhythm with a normal S1 and S2. No gallops, murmurs, or rubs. 2+ distal pulses. Respiratory: Lungs have equal breath sounds bilaterally, clear to auscultation and percussion. No rales, rhonchi or wheezes noted. No increased work of breathing, no retractions or nasal flaring. Abdomen/GI: Soft, non-tender, with normal bowel sounds. No guarding or rebound. No evidence of tenderness throughout. Skin: Warm, dry with normal turgor. Normal color with no rashes, no lesions, and no evidence of cellulitis. MS/ Extremity: Pulses equal, no cyanosis. Neurovascular intact. Full, normal range of motion. Neuro: Awake and alert, GCS 15, oriented to person, place, time, and situation. Cranial nerves II-XII grossly intact. Motor strength 5/5 to RUE/RLE, chronic decreased strength noted to LUE/LLE from prior CVA. 19:10 ECG was reviewed by the Attending Physician. NSR, rate 68, 1st degree AV block, sd2 occasional PVCs present, LVH, no significant change from EKG performed yesterday Vital Signs: 19:11 BP 106 / 73; Pulse 67; Resp 17 S; Temp 98(O); Pulse Ox 100% on R/A; Pain 0/10; mt4 19:45 BP 127 / 90; Pulse 62; Resp 19; Temp 98.7; Pulse Ox 100% on R/A; Pain 6/10; mt4 19:11 Pain Scale: Adult mt4 19:45 Pain Scale: Adult mt4 Marilzu Coma Score: 19:12 Eye Response: spontaneous(4). Motor Response: obeys commands(6). Verbal Response: mt4 oriented(5). Total: 15. MDM: 18:11 Patient medically screened. sd2 18:12 Differential Diagnosis ACS, chronic pain, angina, PE, PTX, PNA among others. Data sd2 reviewed: vital signs, nurses notes, EMS record, lab test result(s), EKG, radiologic studies. I considered the following discharge prescriptions or medication management in the emergency department Medications were administered in the Emergency Department. See MAR. Historians other than the Patient: EMS: provides initial report. 19:30 Counseling: I had a detailed discussion with the patient and/or guardian regarding the sd2 historical points, exam findings, and any diagnostic results supporting the discharge/admit diagnosis, lab results, radiology results, the need for outpatient follow up, to return to the emergency department if symptoms worsen or persist or if there are any questions or concerns that arise at home. ED course: Pain improved. Pt resting comfortably. EKG with no ischemic changes. CXR with no acute process. Saw cardiology today already. Labs otherwise reassuring. Elevated BNP but patient with no signs of fluid overload and is compliant with her Lasix. Comfortable with plan for dc and verbalizes understanding of strict return precautions.. 11/19 18:16 Order name: CBC with Diff; Complete Time: 19:24 sd2 11/19 18:16 Order name: CMP; Complete Time: 19:24 sd2 11/19 18:16 Order name: Troponin High Sensitivity; Complete Time: 19:24 sd2 11/19 18:16 Order name: BNP; Complete Time: 19:24 sd2 11/19 18:16 Order name: XRAY Chest (1 view); Complete Time: 19:06 sd2 11/19 18:16 Order name: EKG - Nurse/Tech; Complete Time: 18:26 sd2 Administered Medications: 18:18 CANCELLED (Physician Discretion): [id number] mg PO once sd2 18:42 Drug: hydrOXYzine PO 25 mg PO once Route: PO; kj2 20:02 Follow up: Response: No adverse reaction mt4 Disposition Summary: 11/20/23 19:32 Discharge Ordered Problem: an ongoing problem sd2 Symptoms: have improved sd2 Condition: Stable sd2 Diagnosis - Chronic chest pain sd2 Followup: sd2 - With: Private Physician - When: 2 - 3 days - Reason: Recheck today's complaints, Continuance of care, Re-evaluation by your physician Discharge Instructions: - Discharge Summary Sheet sd2 - Nonspecific Chest Pain, Adult sd2 - Chronic Pain, Adult sd2 Forms: - Medication Reconciliation Form sd2 - Antibiotic Education sd2 - Prescription Opioid Use sd2 - Patient Portal Instructions sd2 - Leadership Thank You Letter sd2 Signatures: Dispatcher [employer] Sylvia Echeverria MD MD sd2 Hortencia Maldonado RN RN kj2 Monster Holm RN mt4 Corrections: (The following items were deleted from the chart) 18:17 18:17 CBC+H.LAB.BRZ ordered. EDMS EDMS 18:17 18:17 COMPREHENSIVE METABOLIC PANEL+C.LAB.BRZ ordered. EDMS EDMS 18:17 18:17 Troponin High Sensitivity+C.LAB.BRZ ordered. EDMS EDMS 18:17 18:17 PROBNP+C.LAB.BRZ ordered. EDMS EDMS 18:18 18:16 traMADol PO 50 mg PO once ordered. 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
--- NOTE | 2023-11-20 19:33 | ER ---
Nurse's Notes [facility] Name: Geetha Khan Age: 48 yrs Sex: Female : 1975 Arrival Date: 11/20/2023 Time: 18:04 Bed 20 Private MD: Diagnosis: Chronic chest pain Presentation: 11/19 18:04 Chief complaint: EMS states: right and left sided chest pain. kj2 18:04 Method Of Arrival: EMS: [facility] kj2 20:28 Coronavirus screen: At this time, the client does not indicate any symptoms associated mt4 with coronavirus-19. Ebola Screen: Patient denies exposure to infectious person. Initial Sepsis Screen: Does the patient meet any 2 criteria? No. Patient's initial sepsis screen is negative. Does the patient have a suspected source of infection? No. Patient's initial sepsis screen is negative. Risk Assessment: Do you want to hurt yourself or someone else? Patient reports no desire to harm self or others. Onset of symptoms is unknown. 20:28 Acuity: CORRINA 3 mt4 Triage Assessment: 18:10 General: Appears in no apparent distress. Behavior is calm, cooperative. kj2 18:10 Pain: Complains of pain in chest Pain currently is 7 out of 10 on a pain scale. Neuro: kj2 Level of Consciousness is awake, alert, Oriented to person, place, situation. Cardiovascular: Reports chest pain, Patient's skin is warm and dry. Respiratory: Airway is patent Respiratory effort is unlabored. GI: No deficits noted. : No deficits noted. Historical: - Allergies: 18:30 Aspirin; kj2 18:30 CRANBERRY; kj2 18:30 FISH PRODUCT DERIVATIVES; kj2 18:30 GRAPEFRUIT; kj2 18:30 mushrooms; kj2 - Immunization history:: Adult Immunizations up to date. - Infectious Disease History:: Denies. - Social history:: Smoking status: unknown. Screenin:12 [facility] ED Fall Risk Assessment (Adult) History of falling in the last 3 months, mt4 including since admission Yes- single mechanical fall (1 pt) Confusion or Disorientation No (0 pts) Intoxicated or Sedated No (0 pts) Impaired Gait Yes (1 pt) Mobility Assist Device Used Yes (1 pt) Altered Elimination No (0 pt) Score/Fall Risk Level 3 or more points = High Risk. Abuse screen: Denies injuries from another. Nutritional screening: No deficits noted. Tuberculosis screening: No symptoms or risk factors identified. Assessment: 18:32 General: Reports see triage assessment. kj2 19:12 General: Appears in no apparent distress. unkempt, Behavior is calm, cooperative, mt4 Smells of Denies. Pain: Denies pain. Neuro: Level of Consciousness is awake, alert, obeys commands, Oriented to person, place, time. Cardiovascular: Capillary refill < 3 seconds. Respiratory: Airway is patent Respiratory effort is even, unlabored, Respiratory pattern is regular. GI: Abdomen is non-distended, Abd is non tender. : Denies burning with urination. Musculoskeletal: Capillary refill < 3 seconds, Range of motion: limited in all extremities. 20:26 Neuro: Paralysis in left arm(s) leg(s). mt4 Vital Signs: 19:11 BP 106 / 73; Pulse 67; Resp 17 S; Temp 98(O); Pulse Ox 100% on R/A; Pain 0/10; mt4 19:45 BP 127 / 90; Pulse 62; Resp 19; Temp 98.7; Pulse Ox 100% on R/A; Pain 6/10; mt4 19:11 Pain Scale: Adult mt4 19:45 Pain Scale: Adult mt4 Mariluz Coma Score: 19:12 Eye Response: spontaneous(4). Motor Response: obeys commands(6). Verbal Response: mt4 oriented(5). Total: 15. ED Course: 18:06 Patient arrived in ED. ko1 18:11 Sylvia Barker MD is Attending Physician. sd2 18:23 Hortencia Maldonado, YANETH is Primary Nurse. kj2 18:53 XRAY Chest (1 view) In Process Unspecified. EDMS 18:57 Initial lab(s) drawn, by me, sent to lab. Inserted saline lock: 24 gauge in right cm10 antecubital area, using aseptic technique. Blood collected. Flushed with 10 mL NS Missed attempt(s): 22 gauge in right hand. Bleeding controlled, band aid applied, catheter tip intact. 20:02 Fall risk band placed. Bed in low position. Call light in reach. Side rails up X 1. mt4 Provided Education on: safety education, pain education . 20:03 Allergy band placed. mt4 20:27 No provider procedures requiring assistance completed. IV discontinued, intact, mt4 bleeding controlled, No redness/swelling at site. 20:28 Triage completed. mt4 20:28 Arm band placed on right wrist. mt4 Administered Medications: 18:18 CANCELLED (Physician Discretion): [id number] mg PO once sd2 18:42 Drug: hydrOXYzine PO 25 mg PO once Route: PO; kj2 20:02 Follow up: Response: No adverse reaction mt4 Medication: 19:12 VIS not applicable for this client. mt4 Outcome: 19:32 Discharge ordered by . sd2 20:27 Condition: stable mt4 20:27 Discharge instructions given to Instructed on discharge instructions, follow up and referral plans. safety practices, Demonstrated understanding of instructions, follow-up care, medications, 20:28 Discharged to home via wheelchair, mt4 20:29 Patient left the ED. 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
[2023-11-20 20:33] VITALS: O2SAT 100
[2023-11-20 20:34] VITALS: BP 127/90; TEMP 98.7
--- NOTE | 2023-11-22 14:11 | EKG ---
Test Date: 2023-11-20 Test Time: 18:20:02 Legal Research Analyst: JOE MEASUREMENT RESULTS: Intervals: Rate: 68 HI: 212 QRSD: 86 QT: 438 QTc: 465 [place]: P: 36 HI: 212 QRS: 10 T: 160 INTERPRETIVE STATEMENTS: Sinus rhythm with 1st degree AV block with occasional premature ventricular complexes Left ventricular hypertrophy with repolarization abnormality Abnormal ECG Compared to ECG 11/19/2023 20:08:42 Ventricular premature complex(es) now present Electronically Signed On 11-22-23 14:07:50 CDT by Josse Olson
== END 2023-11-20 20:29 | disposition home or self-care (01) ==
LOC: ER 18:04
DX: R07.9 Chest pain, unspecified (principal)
CPT/HCPCS: 36415; 71045; 80053; 83880; 84484; 85025; 93005; 99284

== ENCOUNTER 2023-11-21 17:54 | Emergency (ER) | payer OTHER ==
--- NOTE | 2023-11-21 17:58 | EDPHYS ---
Physician Documentation [facility] Name: Geetha Khan Age: 48 yrs Sex: Female : 1975 Arrival Date: 11/21/2023 Time: 17:54 Bed IW1 Private MD: ED Physician Hoa Eddy HPI: 11/20 17:56 This 48 yrs old Female presents to ER via Unassigned with complaints of chest pain. sp3 17:56 48-year-old female well-known to the emergency department with extensive past medical sp3 history documented and well-known to me presents with recurrent chest pain. Patient is a multiple workups and notes last few days. Vital signs are completely normal patient is in no acute distress smiling and waving. Review of systems otherwise negative.. 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 - Infectious Disease History:: Denies. - Social history:: Smoking status: Patient denies any tobacco usage or history of. ROS: 17:57 Constitutional: Negative for fever, chills, and weight loss, Eyes: Negative for injury, sp3 pain, redness, and discharge, ENT: Negative for injury, pain, and discharge, Neck: Negative for injury, pain, and swelling, Respiratory: Negative for shortness of breath, cough, wheezing, and pleuritic chest pain, Abdomen/GI: Negative for abdominal pain, nausea, vomiting, diarrhea, and constipation, Back: Negative for injury and pain, MS/Extremity: Negative for injury and deformity, Skin: Negative for injury, rash, and discoloration, Neuro: Negative for headache, weakness, numbness, tingling, and seizure, Psych: Negative for depression, anxiety, suicide ideation, homicidal ideation, and hallucinations, Allergy/Immunology: Negative for hives, rash, and allergies, Endocrine: Negative for neck swelling, polydipsia, polyuria, polyphagia, and marked weight changes, 17:57 All other systems are negative, Exam: 17:57 Constitutional: This is a well developed, well nourished patient who is awake, alert, sp3 and in no acute distress. Head/Face: Normocephalic, atraumatic. Eyes: Pupils equal round and reactive to light, extra-ocular motions intact. Lids and lashes normal. Conjunctiva and sclera are non-icteric and not injected. Cornea within normal limits. Periorbital areas with no swelling, redness, or edema. ENT: Nares patent. No nasal discharge, no septal abnormalities noted. External auditory canals are clear. Oropharynx with no redness, swelling, or masses, exudates, or evidence of obstruction, uvula midline. Mucous membranes moist. Neck: Trachea midline, no thyromegaly or masses palpated, and no cervical lymphadenopathy. Supple, full range of motion without nuchal rigidity, or vertebral point tenderness. No Meningismus. Chest/axilla: Normal chest wall appearance and motion. Nontender with no deformity. No lesions are appreciated. Cardiovascular: Regular rate and rhythm with a normal S1 and S2. No gallops, murmurs, or rubs. Normal PMI, no JVD. No pulse deficits. Respiratory: Lungs have equal breath sounds bilaterally, clear to auscultation and percussion. No rales, rhonchi or wheezes noted. No increased work of breathing, no retractions or nasal flaring. Abdomen/GI: Soft, non-tender, with normal bowel sounds. No distension or tympany. No guarding or rebound. No evidence of tenderness throughout. Back: No spinal tenderness. No costovertebral tenderness. Full range of motion. Skin: Warm, dry with normal turgor. Normal color with no rashes, no lesions, and no evidence of cellulitis. MS/ Extremity: Pulses equal, no cyanosis. Neurovascular intact. Full, normal range of motion. Neuro: Awake and alert, GCS 15, oriented to person, place, time, and situation. Cranial nerves II-XII grossly intact. Motor strength 5/5 in all extremities. Sensory grossly intact. Cerebellar exam normal. Normal gait. Psych: Awake, alert, with orientation to person, place and time. Behavior, mood, and affect are within normal limits. Vital Signs: 17:59 BP 121 / 80; Pulse 81; Resp 16; Temp 97.9; Pulse Ox 100% ; dd2 MDM: 17:57 Data reviewed: vital signs, EMS record, old medical records. ED course: Clinically have sp3 ruled out ACS any other critical pathology. We will safely discharge her home at this time.. 17:58 Patient medically screened. sp3 Administered Medications: No medications were administered Disposition Summary: 11/21/23 17:58 Discharge Ordered Notes: Location: Home sp3 Condition: Stable sp3 Diagnosis - Other chronic pain sp3 Followup: sp3 - With: Private Physician - When: Upon discharge from the Emergency Department - Reason: Continuance of care Discharge Instructions: - Discharge Summary Sheet sp3 - Chronic Pain, Adult sp3 Forms: - Medication Reconciliation Form sp3 - Antibiotic Education sp3 - Prescription Opioid Use sp3 - Patient Portal Instructions sp3 - Leadership Thank You Letter sp3 Signatures: Hoa Eddy MD MD sp3 MAGGIE GIBSON RN RN dd2
--- NOTE | 2023-11-21 18:17 | ER ---
Nurse's Notes [facility] Name: Geetha Khan Age: 48 yrs Sex: Female : 1975 Arrival Date: 11/21/2023 Time: 17:54 Bed IW1 Private MD: Diagnosis: Other chronic pain Presentation: 11/20 17:59 Chief complaint: EMS states: Pt brought in via EMS for c/o chest pain. Coronavirus dd2 screen: At this time, the client does not indicate any symptoms associated with coronavirus-19. Ebola Screen: No symptoms or risks identified at this time. Initial Sepsis Screen: Does the patient meet any 2 criteria? No. Patient's initial sepsis screen is negative. Does the patient have a suspected source of infection? No. Patient's initial sepsis screen is negative. Risk Assessment: Do you want to hurt yourself or someone else? Patient reports no desire to harm self or others. Onset of symptoms was November 21, 2023. 17:59 Method Of Arrival: EMS: [facility] dd2 17:59 Acuity: CORRINA 4 dd2 Triage Assessment: 18:02 General: Appears in no apparent distress. Behavior is calm, cooperative. Pain: dd2 Complains of pain in chest Pain does not radiate. EENT: No deficits noted. Neuro: Level of Consciousness is awake, alert, obeys commands, Oriented to person, place, time, situation. Cardiovascular: Reports chest pain, Patient's skin is warm and dry. Respiratory: No deficits noted. GI: No deficits noted. : No deficits noted. Derm: No deficits noted. Musculoskeletal: No deficits noted. 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 - Infectious Disease History:: Denies. - Social history:: Smoking status: Patient denies any tobacco usage or history of. Screenin:13 [facility] ED Fall Risk Assessment (Adult) History of falling in the last 3 months, dd2 including since admission No falls in past 3 months (0 pts) Confusion or Disorientation No (0 pts) Intoxicated or Sedated No (0 pts) Impaired Gait Yes (1 pt) Mobility Assist Device Used Yes (1 pt) Altered Elimination No (0 pt) Score/Fall Risk Level 0 - 2 = Low Risk Oriented to surroundings, Maintained a safe environment, Educated pt \T\ family on fall prevention, incl call for assistance when getting out of bed. Abuse screen: Denies threats or abuse. Denies injuries from another. Nutritional screening: No deficits noted. Tuberculosis screening: No symptoms or risk factors identified. Assessment: 18:15 Reassessment: See triage note. dd2 Vital Signs: 17:59 BP 121 / 80; Pulse 81; Resp 16; Temp 97.9; Pulse Ox 100% ; dd2 ED Course: 17:56 Patient arrived in ED. em1 17:56 Hoa Eddy MD is Attending Physician. sp3 18:02 Triage completed. dd2 18:02 Arm band placed on right wrist. Patient placed in waiting room, in view of staff dd2 members, Patient notified of wait time. 18:15 Patient has correct armband on for positive identification. Provided Education on: d/c dd2 information. 18:15 No provider procedures requiring assistance completed. Patient did not have IV access dd2 during this emergency room visit. Administered Medications: No medications were administered Medication: 18:13 VIS not applicable for this client. dd2 Outcome: 17:58 Discharge ordered by . sp3 18:15 Discharged to home via wheelchair, dd2 18:15 Condition: stable 18:15 Discharge instructions given to patient, Instructed on discharge instructions, follow up and referral plans. Demonstrated understanding of instructions, follow-up care, 18:16 Patient left the ED. dd2 Signatures: Reyes Khan em1 Hoa Eddy MD MD sp3 MAGGIE GIBSON, RN RN dd2 Corrections: (The following items were deleted from the chart) 18:15 18:02 LMP N/A - Pre-menarche, Not dd2 dd2
[2023-11-21 18:39] VITALS: BP 121/80; TEMP 97.9; O2SAT 100
== END 2023-11-21 18:16 | disposition home or self-care (01) ==
LOC: ER 17:54
DX: G89.29 Other chronic pain (principal); I10 Essential (primary) hypertension; Z86.73 Personal history of transient ischemic attack (TIA), and cerebral infarction without residual deficits
CPT/HCPCS: 99283

== ENCOUNTER 2023-11-22 18:23 | Emergency (ER) | payer OTHER ==
[2023-11-22] MEDS ORDERED: ACETAMINOPHEN 325 MG TABLET ONE (18:40)
--- NOTE | 2023-11-22 18:57 | EDPHYS ---
Physician Documentation [facility] Name: Geetha Khan Age: 48 yrs Sex: Female : 1975 Arrival Date: 11/22/2023 Time: 18:23 Bed 6 Private MD: ED Physician Michael Grimm HPI: 11/21 19:26 This 48 yrs old Female presents to ER via EMS with complaints of Chest Pain. sb4 19:26 chronic chest pain. took tylenol, ibuprofen, and nitro without relief so called EMS. 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 - Infectious Disease History:: Denies. - Social history:: Smoking status: Patient denies any tobacco usage or history of. ROS: 19:26 Constitutional: Negative for fever, chills, and weight loss, sb4 19:26 Cardiovascular: Positive for chest pain, 19:26 All other systems are negative, Exam: 19:26 Constitutional: This is a well developed, well nourished patient who is awake, alert, sb4 and in no acute distress. Head/Face: Normocephalic, atraumatic. Eyes: Extra-ocular motions intact. Periorbital areas with no swelling, redness, or edema. ENT: Mucous membranes moist. Cardiovascular: Regular rate and rhythm with a normal S1 and S2. Respiratory: Lungs have equal breath sounds bilaterally, clear to auscultation and percussion. No rales, rhonchi or wheezes noted. No increased work of breathing, no retractions or nasal flaring. Skin: Warm, dry with normal turgor. Normal color with no rashes, no lesions, and no evidence of cellulitis. Vital Signs: 18:32 BP 130 / 88; Pulse 77; Resp 17; Pulse Ox 98% on R/A; rs5 19:11 BP 111 / 94; Pulse 69; Resp 18; Temp 98.1; Pulse Ox 98% on R/A; Pain 0/10; kd4 19:11 Pain Scale: Adult kd4 MDM: 18:33 Patient medically screened. sb4 19:27 Data reviewed: vital signs, nurses notes, EMS record, EKG, and as a result, I will sb4 discharge patient. 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 11/21 18:36 Order name: EKG; Complete Time: 18:36 sb4 11/21 18:38 Order name: EKG Electrocardiogram; Complete Time: 19:04 EDMS EC:03 Rate is 71 beats/min. Rhythm is regular, Normal Sinus Rhythm. MI interval is normal at sb4 200 msec. QRS interval is normal at 86 msec. QT interval is normal at 422 msec. No Q waves. T waves are Normal. No ST changes noted. Clinical impression: Abnormal EKG without significant change and LVH. Interpreted by me. Reviewed by me. Administered Medications: 18:40 Drug: Acetaminophen PO 650 mg PO once Route: PO; rs5 19:27 Follow up: Response: No adverse reaction kd4 19:11 Drug: Nitroglycerin Sublingual 0.4 mg Sublingual once Route: Sublingual; kd4 19:27 Follow up: Response: No adverse reaction kd4 Disposition Summary: 11/22/23 18:56 Discharge Ordered Notes: Location: Home sb4 Problem: an ongoing problem sb4 Symptoms: have improved sb4 Condition: Stable sb4 Diagnosis - Other chronic pain sb4 Followup: sb4 - With: Josse Olson MD - When: 2 - 3 days - Reason: Recheck today's complaints, Re-evaluation by your physician Discharge Instructions: - Discharge Summary Sheet sb4 - Chronic Pain, Adult sb4 Forms: - Patient Portal Instructions sb4 - Leadership Thank You Letter sb4 Addendum: 11/30/2023 15:35 Co-signature as Attending Physician, Michael Grimm MD I agree with the assessment and c call plan of care. Signatures: Dispatcher [employer] EDFL Mcihael Grimm MD MD cha Brown, Sophia, PA-C PAGiseleC sb4 Lloyd, Anjel, RN RN rs5 Dahissa, Jolly, RN RN kd4
--- NOTE | 2023-11-22 18:57 | ER ---
Nurse's Notes [facility] Name: Geetha Khan Age: 48 yrs Sex: Female : 1975 Arrival Date: 11/22/2023 Time: 18:23 Bed 6 Private MD: Diagnosis: Other chronic pain Presentation: 11/21 18:32 Chief complaint: EMS states: Chest pain that started four hours ago, pt reports taking rs5 one nitro tablet prior to calling EMS, chest pain remains unrelieved, rates pain 10/10. Coronavirus screen: At this time, the client does not indicate any symptoms associated with coronavirus-19. Ebola Screen: No symptoms or risks identified at this time. Initial Sepsis Screen: Does the patient meet any 2 criteria? No. Patient's initial sepsis screen is negative. Does the patient have a suspected source of infection? No. Patient's initial sepsis screen is negative. Risk Assessment: Do you want to hurt yourself or someone else? Patient reports no desire to harm self or others. Onset of symptoms was November 22, 2023. 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 - Infectious Disease History:: Denies. - Social history:: Smoking status: Patient denies any tobacco usage or history of. Screenin:33 [facility] ED Fall Risk Assessment (Adult) History of falling in the last 3 months, rs5 including since admission No falls in past 3 months (0 pts) Confusion or Disorientation No (0 pts) Intoxicated or Sedated No (0 pts) Impaired Gait No (0 pts) Mobility Assist Device Used No (0 pt) Altered Elimination No (0 pt) Score/Fall Risk Level 0 - 2 = Low Risk Oriented to surroundings, Maintained a safe environment. Abuse screen: Denies threats or abuse. Nutritional screening: No deficits noted. Tuberculosis screening: No symptoms or risk factors identified. Assessment: 18:33 General: Appears in no apparent distress. comfortable, Behavior is calm, cooperative. rs5 Pain: Complains of pain in chest Pain does not radiate. Pain currently is 9 out of 10 on a pain scale. Quality of pain is described as aching, Pain began 4 hours ago. Is continuous. Neuro: Level of Consciousness is awake, alert, obeys commands, Oriented to person, place, time, situation. Cardiovascular: Patient's skin is warm and dry. Respiratory: Airway is patent Respiratory effort is even, unlabored, Respiratory pattern is regular, symmetrical. GI: Abdomen is round non-distended, Abd is soft and non tender X 4 quads. : No signs and/or symptoms were reported regarding the genitourinary system. EENT: No signs and/or symptoms were reported regarding the EENT system. Derm: Skin is intact, Skin is pink, warm \T\ dry. Musculoskeletal: Range of motion: intact in all extremities. 19:25 General: D/c instruction given to patient, she verbalize understanding, vss, no further kd4 complaints.. Vital Signs: 18:32 BP 130 / 88; Pulse 77; Resp 17; Pulse Ox 98% on R/A; rs5 19:11 BP 111 / 94; Pulse 69; Resp 18; Temp 98.1; Pulse Ox 98% on R/A; Pain 0/10; kd4 19:11 Pain Scale: Adult kd4 ED Course: 18:32 Patient arrived in ED. rs5 18:33 [facility] Bradshaw [facility] sb4 18:33 Michael Grimm MD is Attending Physician. sb4 18:33 Patient has correct armband on for positive identification. Placed in gown. Bed in low rs5 position. Call light in reach. Side rails up X2. Client placed on continuous cardiac and pulse oximetry monitoring. NIBP monitoring applied. impregnator on. 18:33 No provider procedures requiring assistance completed. Patient maintains SpO2 rs5 saturation greater than 95% on room air. 18:34 Triage completed. rs5 18:56 Josse Olson MD is Referral Physician. sb4 19:12 Patient patient in bed , vss. kd4 19:14 Provided Education on: d/c instruction. kd4 19:14 Patient did not have IV access during this emergency room visit. kd4 Administered Medications: 18:40 Drug: Acetaminophen PO 650 mg PO once Route: PO; rs5 19:27 Follow up: Response: No adverse reaction kd4 19:11 Drug: Nitroglycerin Sublingual 0.4 mg Sublingual once Route: Sublingual; kd4 19:27 Follow up: Response: No adverse reaction kd4 Medication: 18:47 VIS not applicable for this client. rs5 Outcome: 18:56 Discharge ordered by . sb4 19:14 Discharged to home via wheelchair, kd4 19:14 Condition: good 19:14 Discharge instructions given to patient, Instructed on discharge instructions, follow up and referral plans. 19:27 Patient left the ED. kd4 Signatures: Kalli Bradshaw PA-C PA-C sb4 Anjel Lloyd RN RN rs5 Jolly Mcintyre RN RN kd4
[2023-11-22] MEDS ORDERED: NITROGLYCERIN 0.4 MG/TAB SL ONE (19:05)
[2023-11-22 20:16] VITALS: O2SAT 98
[2023-11-22 20:17] VITALS: BP 111/94; TEMP 98.1
--- NOTE | 2023-11-25 17:02 | EKG ---
Test Date: 2023-11-23 Test Time: 20:17:47 Gynaecological Oncologist: KARON MEASUREMENT RESULTS: Intervals: Rate: 74 [place]: 188 QRSD: 92 QT: 408 QTc: 452 [place]: P: 45 [place]: 188 QRS: 9 T: 156 INTERPRETIVE STATEMENTS: Normal sinus rhythm Left ventricular hypertrophy with repolarization abnormality Abnormal ECG Compared to ECG 11/22/2023 18:51:12 No significant changes Electronically Signed On 11-25-23 16:59:39 CDT by Josse Olson
--- NOTE | 2023-11-25 17:07 | EKG ---
Test Date: 2023-11-22 Test Time: 18:51:12 Communications Equipment Operator: KALPANA MEASUREMENT RESULTS: Intervals: Rate: 71 [place]: 200 QRSD: 86 QT: 422 QTc: 458 [place]: P: 43 [place]: 200 QRS: 0 T: 158 INTERPRETIVE STATEMENTS: Normal sinus rhythm Left ventricular hypertrophy with repolarization abnormality Abnormal ECG Compared to ECG 11/20/2023 18:20:02 Ventricular premature complex(es) no longer present First degree AV block no longer present Electronically Signed On 11-25-23 17:00:42 CDT by Josse Olson
== END 2023-11-22 19:27 | disposition home or self-care (01) ==
LOC: ER 18:23
DX: G89.29 Other chronic pain (principal); I10 Essential (primary) hypertension; Z86.73 Personal history of transient ischemic attack (TIA), and cerebral infarction without residual deficits
CPT/HCPCS: 93005; 99284

== ENCOUNTER 2023-11-23 19:41 | Emergency (ER) | payer OTHER ==
--- NOTE | 2023-11-23 20:19 | EDPHYS ---
Physician Documentation [facility] Name: Geetha Khan Age: 48 yrs Sex: Female : 1975 Arrival Date: 11/23/2023 Time: 19:41 Bed IW3 Private MD: ED Physician Gene Medrano HPI: 11/23 17:02 This 48 yrs old Female presents to ER via EMS with complaints of chest pain. sb4 17:02 The patient or guardian reports chest pain that is located primarily in the substernal sb4 area. Onset: at an unknown time. The pain does not radiate. Associated signs and symptoms: The patient has no apparent associated signs or symptoms. The chest pain is described as a heaviness. Duration: The patient or guardian reports multiple episodes. Modifying factors: The symptoms are alleviated by nothing. the symptoms are aggravated by nothing. The patient has experienced similar episodes in the past, chronically, and the symptoms today are exactly the same. The patient has been recently seen at the [facility] Emergency Department, yesterday, for similar complaints. 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 - Infectious Disease History:: Denies. - Social history:: Smoking status: Patient reports the use of cigarette tobacco products, smokes one pack cigarettes per day. Patient/guardian denies using alcohol. ROS: 11/23 17:02 Constitutional: Negative for fever, chills, and weight loss, sb4 Cardiovascular: Positive for chest pain, All other systems are negative, Exam: 17:02 Constitutional: This is a well developed, well nourished patient who is awake, alert, sb4 and in no acute distress. Head/Face: Normocephalic, atraumatic. Eyes: Extra-ocular motions intact. Periorbital areas with no swelling, redness, or edema. ENT: Mucous membranes moist. Cardiovascular: Regular rate and rhythm with a normal S1 and S2. Respiratory: Lungs have equal breath sounds bilaterally, clear to auscultation and percussion. No rales, rhonchi or wheezes noted. No increased work of breathing, no retractions or nasal flaring. Skin: Warm, dry with normal turgor. Normal color with no rashes, no lesions, and no evidence of cellulitis. Vital Signs: 11/22 20:20 BP 121 / 87; Pulse 71; Resp 19; Temp 98.2; Pulse Ox 100% on R/A; Weight 65.77 kg; tm6 Height 5 ft. 5 in. ; Pain 10/10; 20:20 Body Mass Index 24.13 (65.77 kg, 165.1 cm) tm6 20:20 Pain Scale: Adult tm6 MDM: 20:03 Patient medically screened. sb4 11/23 17:02 The patient was not given aspirin in the Emergency Department. Not indicated due to sb4 patient's past medical history. Data reviewed: vital signs, nurses notes, EKG, and as a result, I will discharge patient. 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 EC:29 Rate is 74 beats/min. Rhythm is regular, Normal Sinus Rhythm. UT interval is normal at sb4 188 msec. QRS interval is normal at 92 msec. QT interval is normal at 408 msec. No Q waves. No ST changes noted. Clinical impression: Abnormal EKG without significant change and LVH. Interpreted by me. Reviewed by me. Administered Medications: 11/22 20:28 Drug: traMADol PO 50 mg PO once Route: PO; tm6 20:28 Follow up: Response: Medication administered at discharge. tm6 Disposition Summary: 11/23/23 20:18 Discharge Ordered Notes: Location: Home sb4 Problem: an ongoing problem sb4 Symptoms: are unchanged sb4 Condition: Stable sb4 Diagnosis - Chest pain, unspecified sb4 Followup: sb4 - With: Josse Olson MD - When: 2 - 3 days - Reason: Further diagnostic work-up, Recheck today's complaints, Re-evaluation by your physician Discharge Instructions: - Discharge Summary Sheet sb4 - Nonspecific Chest Pain, Adult, [id number] sb4 Forms: - Patient Portal Instructions sb4 - Leadership Thank You Letter sb4 Addendum: 12/01/2023 08:56 Co-signature as Attending Physician, Gene Medrano MD I reviewed the patient's care r n provided by the Advanced Practice Provider and agree with the diagnosis and treatment plan. Signatures: Gene Medrano MD MD rn Brown, Sophia, PA-C PA-C sb4 Greg Allen RN RN tm6
[2023-11-23] MEDS ORDERED: TRAMADOL HCL 50 MG TAB ONE (20:24)
--- NOTE | 2023-11-23 20:30 | ER ---
Nurse's Notes [facility] Name: Geetha Khan Age: 48 yrs Sex: Female : 1975 Arrival Date: 11/23/2023 Time: 19:41 Bed IW3 Private MD: Diagnosis: Chest pain, unspecified Presentation: 11/22 20:20 Chief complaint: Patient states: Chest pain starting 4 hours ago. Feels like burning tm6 and stabbing 10/10. Coronavirus screen: Vaccine status: Patient reports receiving the 2nd dose of the covid vaccine. Ebola Screen: Patient negative for fever greater than or equal to 101.5 degrees Fahrenheit, and additional compatible Ebola Virus Disease symptoms Patient denies exposure to infectious person. Patient denies travel to an Ebola-affected area in the 21 days before illness onset. No symptoms or risks identified at this time. Initial Sepsis Screen: Does the patient meet any 2 criteria? No. Patient's initial sepsis screen is negative. Does the patient have a suspected source of infection? No. Patient's initial sepsis screen is negative. Risk Assessment: Do you want to hurt yourself or someone else? Patient reports no desire to harm self or others. Onset of symptoms was November 23, 2023. 20:20 Method Of Arrival: EMS: [facility] tm6 20:20 Acuity: CORRINA 3 tm6 Triage Assessment: 20:21 General: Appears in no apparent distress. Behavior is cooperative, crying. Pain: tm6 Complains of pain in chest. Pain: Quality of pain is described as burning, stabbing, Pain began 4 hours ago. EENT: No signs and/or symptoms were reported regarding the EENT system. Neuro: Level of Consciousness is awake, alert, obeys commands, Oriented to person, place, time, situation. Cardiovascular: Reports chest pain, Patient's skin is warm and dry. Rhythm is sinus rhythm. Respiratory: Airway is patent Respiratory effort is even, unlabored, Respiratory pattern is regular, symmetrical. GI: No signs and/or symptoms were reported involving the gastrointestinal system. Abdomen is flat, non-distended. : No signs and/or symptoms were reported regarding the genitourinary system. Derm: No signs and/or symptoms reported regarding the dermatologic system. Musculoskeletal: No signs and/or symptoms reported regarding the musculoskeletal system. 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 - Infectious Disease History:: Denies. - Social history:: Smoking status: Patient reports the use of cigarette tobacco products, smokes one pack cigarettes per day. Patient/guardian denies using alcohol. Screenin:28 [facility] ED Fall Risk Assessment (Adult) History of falling in the last 3 months, tm6 including since admission No falls in past 3 months (0 pts) Confusion or Disorientation No (0 pts) Intoxicated or Sedated No (0 pts) Impaired Gait Yes (1 pt) Mobility Assist Device Used Yes (1 pt) Altered Elimination No (0 pt) Score/Fall Risk Level 3 or more points = High Risk Oriented to surroundings, Maintained a safe environment, Educated pt \T\ family on fall prevention, incl call for assistance when getting out of bed. Abuse screen: Denies threats or abuse. Denies injuries from another. Nutritional screening: No deficits noted. Tuberculosis screening: No symptoms or risk factors identified. Assessment: 20:28 Reassessment: see triage assessment. tm6 Vital Signs: 20:20 BP 121 / 87; Pulse 71; Resp 19; Temp 98.2; Pulse Ox 100% on R/A; Weight 65.77 kg; tm6 Height 5 ft. 5 in. ; Pain 10/10; 20:20 Body Mass Index 24.13 (65.77 kg, 165.1 cm) tm6 20:20 Pain Scale: Adult tm6 ED Course: 19:56 Patient arrived in ED. jj6 20:01 Kalli Bradshaw PA-C is PHCP. sb4 20:02 Gene Medrano MD is Attending Physician. sb4 20:18 Josse Olson MD is Referral Physician. sb4 20:21 Triage completed. tm6 20:21 Arm band placed on right wrist. tm6 20:23 EKG completed in triage. Results shown to MD. tm6 20:28 Patient has correct armband on for positive identification. Provided Education on: tm6 follow up with Dr. Olson. 20:28 No provider procedures requiring assistance completed. Patient did not have IV access tm6 during this emergency room visit. Administered Medications: 20:28 Drug: traMADol PO 50 mg PO once Route: PO; tm6 20:28 Follow up: Response: Medication administered at discharge. tm6 Medication: 20:28 VIS not applicable for this client. tm6 Outcome: 20:18 Discharge ordered by . sb4 20:28 Discharged to home via wheelchair, tm6 20:28 Condition: stable 20:28 Discharge instructions given to patient, Instructed on discharge instructions, follow up and referral plans. Demonstrated understanding of instructions, follow-up care, 20:29 Patient left the ED. tm6 Signatures: Bia Garcia Sophia, PA-C PA-C sb4 Greg Allen, RN RN tm6
[2023-11-23 20:46] VITALS: BP 121/87; TEMP 98.2; O2SAT 100
== END 2023-11-23 20:29 | disposition home or self-care (01) ==
LOC: ER 19:41
DX: R07.9 Chest pain, unspecified (principal); I10 Essential (primary) hypertension; F17.210 Nicotine dependence, cigarettes, uncomplicated; Z86.73 Personal history of transient ischemic attack (TIA), and cerebral infarction without residual deficits
CPT/HCPCS: 99284

== ENCOUNTER 2023-11-24 18:01 | Emergency (ER) | payer OTHER ==
[2023-11-24] MEDS ORDERED: ACETAMINOPHEN 500 MG TAB ONE ×2 (19:19→19:23)
--- NOTE | 2023-11-24 19:45 | RAD REPORT ---
EXAM DESCRIPTION: CT - [id number] - 11/24/2023 7:39 pm CLINICAL HISTORY: Trauma, head and neck injury. TRAUMA COMPARISON: Head C Spine Mpr Wo Con dated 10/22/2023; Head C Spine Mpr Wo Con dated 07/03/2023; CT HEAD CSPINE MPR WO CONTRAST dated 03/04/2012 TECHNIQUE: Axial 5 mm thick images of the head were obtained. Axial 2 mm thick images of the cervical spine were obtained with sagittal and coronal reconstruction images generated and reviewed. All CT scans are performed using dose optimization technique as appropriate and may include automated exposure control or mA/KV adjustment according to patient size. FINDINGS: CT HEAD WITHOUT CONTRAST: No acute hemorrhage, hydrocephalus or extra-axial collection is identified.Gliosis noted in the right basal ganglia prior infarct.No areas of brain edema or midline shift. The paranasal sinuses and mastoids are clear.The calvarium is intact. CT CERVICAL SPINE WITHOUT CONTRAST: No fracture or subluxation.No prevertebral soft tissues swelling is identified. IMPRESSION: No acute intracranial or cervical spine findings.
--- NOTE | 2023-11-24 19:58 | EDPHYS ---
Physician Documentation [facility] Name: Geetha Khan Age: 48 yrs Sex: Female : 1975 Arrival Date: 11/24/2023 Time: 18:01 Bed 5 Private MD: ED Physician Russell Rodriguez HPI: 11/23 19:04 This 48 yrs old Female presents to ER via EMS with complaints of Shoulder Pain. rt 19:04 Patient presents to the ED with a left shoulder pain after rolling out of bed hitting rt her shoulder. Also reports hitting her head. Denies loss of consciousness, syncope. Denies other acute complaints this time, symptoms are mild in severity, no other aggravating or alleviating factors.. Historical: - Allergies: 18:15 Aspirin; hb 18:15 CRANBERRY; hb 18:15 FISH PRODUCT DERIVATIVES; hb 18:15 GRAPEFRUIT; hb - PMHx: 18:15 Cerebrovascular accident; Hypertensive disorder; hb - Immunization history:: Adult Immunizations up to date. - Infectious Disease History:: Denies. - Social history:: Smoking status: Patient denies any tobacco usage or history of. - Family history:: not pertinent. ROS: 19:04 Constitutional: Negative for fever, chills, and weight loss, Cardiovascular: Negative rt for chest pain, palpitations, and edema, Respiratory: Negative for shortness of breath, cough, wheezing, and pleuritic chest pain, Abdomen/GI: Negative for abdominal pain, nausea, vomiting, diarrhea, and constipation, 19:04 MS/extremity: Positive for pain, Negative for deformity, 19:04 Neuro: Positive for headache, Negative for loss of consciousness, Exam: 19:04 Constitutional: This is a well developed, well nourished patient who is awake, alert, rt and in no acute distress. Head/Face: Normocephalic, atraumatic. Chest/axilla: Normal chest wall appearance and motion. Nontender with no deformity. No lesions are appreciated. Cardiovascular: Regular rate and rhythm with a normal S1 and S2. No gallops, murmurs, or rubs. Normal PMI, no JVD. No pulse deficits. Respiratory: Lungs have equal breath sounds bilaterally, clear to auscultation and percussion. No rales, rhonchi or wheezes noted. No increased work of breathing, no retractions or nasal flaring. Abdomen/GI: Soft, non-tender, with normal bowel sounds. No distension or tympany. No guarding or rebound. No evidence of tenderness throughout. Skin: Warm, dry with normal turgor. Normal color with no rashes, no lesions, and no evidence of cellulitis. 19:04 ECG was reviewed by the Attending Physician. 19:04 Musculoskeletal/extremity: Mild tenderness to the left shoulder, no deformities noted. Vital Signs: 18:05 BP 128 / 92; Pulse 83; Resp 16; Temp 98.4(O); Pulse Ox 100% on R/A; Weight 65.77 kg; hb Height 5 ft. 5 in. ; Pain 10/10; 19:56 BP 124 / 89; Pulse 64; Resp 16; Pulse Ox 100% ; vc1 18:05 Body Mass Index 24.13 (65.77 kg, 165.1 cm) hb 18:05 Pain Scale: Adult hb MDM: 18:14 Patient medically screened. rt 19:15 Transition of care: Care assumed from Kye De Anda MD. ED course: Patient signed out ec2 to me from previous physician, in brief patient arrives today after a ground-level fall with reported shoulder pain. Plan is follow-up radiographs and CT scans and reassess. Likely discharge home.. 19:15 Data reviewed: vital signs. ec2 19:47 ED course: CT head and C-spine with no acute traumatic process identified.. ec2 20:03 ED course: Left shoulder x-ray independently reviewed and interpreted by me, shows no ec2 bony fracture. Will discharge home. Return precautions given.. 11/23 18:26 Order name: CT Head C Spine; Complete Time: 19:47 rt 08 18:26 Order name: Shoulder Left (2 View) XRAY; Complete Time: 20:03 rt 08 18:14 Order name: EKG - Nurse/Tech; Complete Time: 18:26 rt EC:04 Rate is 68 beats/min. Rhythm is regular, Normal Sinus Rhythm with Occasional PVCs, LVH rt present. QRS Dowell is Normal. MD interval is normal. QRS interval is normal. QT interval is normal. Administered Medications: 19:21 Drug: Acetaminophen PO 1000 mg PO once Route: PO; tm6 20:08 Follow up: Response: No adverse reaction; No change in condition vc1 Disposition Summary: 11/24/23 19:58 Discharge Ordered Notes: Location: Home ec2 Condition: Stable ec2 Diagnosis - Pain in left shoulder ec2 Followup: ec2 - With: Private Physician - When: - Reason: Re-evaluation by your physician Discharge Instructions: - Discharge Summary Sheet ec2 - Shoulder Pain ec2 Forms: - Medication Reconciliation Form ec2 - Antibiotic Education ec2 - Prescription Opioid Use ec2 - Patient Portal Instructions ec2 - Leadership Thank You Letter ec2 Signatures: Dispatcher [employer] EDMS Kristin Barrera, RN RN Kye De Anda MD MD rt Russell Rodriguez MD MD ec2 Greg Allen RN RN tm6 Syeda Bruce RN vc1 Corrections: (The following items were deleted from the chart) 18:27 18:27 Shoulder Left 2 View+RAD.RAD.BRZ ordered. EDMS EDMS 18:30 18:14 Troponin High Sensitivity+C.LAB.BRZ ordered. EDMT EDMS 19:15 19:15 ED course: Patient signed out to me from previous physician, in brief patient ec2 arrives today after a ground-level fall with reported shoulder pain. Plan is follow-up radiographs and reassess. Likely discharge home.. ec2
--- NOTE | 2023-11-24 19:58 | ER ---
Nurse's Notes [facility] Name: Geetha Khan Age: 48 yrs Sex: Female : 1975 Arrival Date: 11/24/2023 Time: 18:01 Bed 5 Private MD: Diagnosis: Pain in left shoulder Presentation: 11/23 18:05 Chief complaint: EMS states: Left shoulder pain after fall out of bed this afternoon. hb Coronavirus screen: At this time, the client does not indicate any symptoms associated with coronavirus-19. Ebola Screen: No symptoms or risks identified at this time. Initial Sepsis Screen: Does the patient meet any 2 criteria? No. Patient's initial sepsis screen is negative. Does the patient have a suspected source of infection? No. Patient's initial sepsis screen is negative. Risk Assessment: Do you want to hurt yourself or someone else? Patient reports no desire to harm self or others. Onset of symptoms was November 24, 2023. 18:05 Method Of Arrival: EMS: [facility] hb 18:05 Acuity: CORRINA 4 hb Triage Assessment: 18:15 General: Appears in no apparent distress. Behavior is calm, cooperative. Pain: Pain hb currently is 10 out of 10 on a pain scale. Neuro: Level of Consciousness is awake, alert, obeys commands, Oriented to person, place, time, situation. Cardiovascular: Patient's skin is warm and dry. Respiratory: Respiratory effort is even, unlabored, Respiratory pattern is regular, symmetrical. 18:16 Musculoskeletal: Reports left shoulder pain. hb Historical: - Allergies: 18:15 Aspirin; hb 18:15 CRANBERRY; hb 18:15 FISH PRODUCT DERIVATIVES; hb 18:15 GRAPEFRUIT; hb - PMHx: 18:15 Cerebrovascular accident; Hypertensive disorder; hb - Immunization history:: Adult Immunizations up to date. - Infectious Disease History:: Denies. - Social history:: Smoking status: Patient denies any tobacco usage or history of. - Family history:: not pertinent. Screenin:00 [facility] ED Fall Risk Assessment (Adult) History of falling in the last 3 months, vc1 including since admission Yes- fall prone (multiple falls) (3 pts) Confusion or Disorientation No (0 pts) Intoxicated or Sedated No (0 pts) Impaired Gait Yes (1 pt) Mobility Assist Device Used Yes (1 pt) Altered Elimination Yes (1 pt) Score/Fall Risk Level 3 or more points = High Risk Oriented to surroundings, Maintained a safe environment, Educated pt \\T\\ family on fall prevention, incl call for assistance when getting out of bed, Hourly rounding (assess needs \\T\\ fall precautionary measures) done. Abuse screen: Denies threats or abuse. Nutritional screening: No deficits noted. Tuberculosis screening: No symptoms or risk factors identified. Assessment: 20:03 Reassessment: Patient and/or family updated on plan of care and expected duration. Pain vc1 level reassessed. Patient is alert, oriented x 3, equal unlabored respirations, skin warm/dry/pink. Pt stated, "If y'all aren't going to do anything I just wanted to go home. " Reminded pt that she already has had xrays done and we are just waiting on the results. Pt states, "I just want to go home" Provider notified. No new orders. 20:06 General: Appears in no apparent distress. comfortable, slender, unkempt, Behavior is vc1 cooperative. Pain: Complains of pain in back of head and left anterior shoulder. Neuro: Level of Consciousness is awake, alert, obeys commands, Oriented to person, place, time, situation, Appropriate for age Paralysis in left arm(s) leg(s). Cardiovascular: Heart tones S1 S2 present Capillary refill < 3 seconds Patient's skin is warm and dry. Rhythm is regular. Respiratory: Airway is patent Respiratory effort is even, unlabored, Respiratory pattern is regular, symmetrical, Breath sounds are clear bilaterally. GI: Abdomen is flat, non-distended, Bowel sounds present X 4 quads. Abd is soft and non tender. : Reports incontinence. EENT: No deficits noted. No signs and/or symptoms were reported regarding the EENT system. Derm: Skin is intact, is healthy with good turgor, Skin is dry, Skin is normal, Skin temperature is warm. Musculoskeletal: Reports pain in anterior aspect of left shoulder. Vital Signs: 18:05 BP 128 / 92; Pulse 83; Resp 16; Temp 98.4(O); Pulse Ox 100% on R/A; Weight 65.77 kg; hb Height 5 ft. 5 in. ; Pain 10/10; 19:56 BP 124 / 89; Pulse 64; Resp 16; Pulse Ox 100% ; vc1 18:05 Body Mass Index 24.13 (65.77 kg, 165.1 cm) hb 18:05 Pain Scale: Adult hb ED Course: 18:10 Patient arrived in ED. ph 18:14 Kye De Anda MD is Attending Physician. rt 18:14 Triage completed. hb 18:16 Arm band placed on. hb 18:26 EKG done, by ED staff, reviewed by Kye De Anda MD. em1 19:00 Patient has correct armband on for positive identification. Placed in gown. Bed in low vc1 position. Call light in reach. Side rails up X2. Pulse ox on. NIBP on. 19:02 Attending Physician role handed off by Kye De Anda MD ec2 19:02 Russell Rodriguez MD is Attending Physician. ec2 19:41 CT Head C Spine In Process Unspecified. EDMS 19:48 Shoulder Left (2 View) XRAY In Process Unspecified. EDMS 20:22 Syeda Bruce RN is Primary Nurse. vc1 20:22 Provided Education on: fall safety. pt in clean dry brief. vc1 20:22 No provider procedures requiring assistance completed. Patient did not have IV access vc1 during this emergency room visit. Administered Medications: 19:21 Drug: Acetaminophen PO 1000 mg PO once Route: PO; tm6 20:08 Follow up: Response: No adverse reaction; No change in condition vc1 Medication: 20:05 VIS not applicable for this client. vc1 Outcome: 19:58 Discharge ordered by MD. ec2 20:23 Discharged to home via wheelchair, vc1 20:23 Condition: good 20:23 Discharge instructions given to patient, Instructed on discharge instructions, follow up and referral plans. Demonstrated understanding of instructions, follow-up care, pt to wait in lobby for transportation home 20:23 Patient left the ED. vc1 Signatures: Dispatcher [employer] EDMS Reyes Khan em1 Kelly Brown RN RN Kristin Barrera, YANETH WOLFE Syeda Bruce, YANETH RN vc1 Kye De Anda MD MD rt Russell Rodriguez MD MD ec2 Greg Allen, YANETH RN tm6 Corrections: (The following items were deleted from the chart) 18:16 18:15 Respiratory: Respiratory effort is even, unlabored, Respiratory pattern is hb regular, symmetrical, hb
--- NOTE | 2023-11-24 20:00 | RAD REPORT ---
EXAM DESCRIPTION: RAD - Shoulder Left 2 View - 11/24/2023 7:46 pm CLINICAL HISTORY: trauma Fall, pain COMPARISON: No comparisons FINDINGS: No acute fracture or dislocation seen.
[2023-11-24 20:34] VITALS: TEMP 98.4; O2SAT 100
[2023-11-24 20:36] VITALS: BP 124/89
--- NOTE | 2023-11-26 16:58 | EKG ---
Test Date: 2023-11-24 Test Time: 18:23:29 Financial Sales Consultant: MELLISSA MEASUREMENT RESULTS: Intervals: Rate: 68 [place]: 202 QRSD: 84 QT: 428 QTc: 455 [place]: P: 43 [place]: 202 QRS: 2 T: 149 INTERPRETIVE STATEMENTS: Sinus rhythm with occasional premature ventricular complexes Left ventricular hypertrophy with repolarization abnormality Abnormal ECG Compared to ECG 11/23/2023 20:17:47 Ventricular premature complex(es) now present Electronically Signed On 11-26-23 16:53:42 CDT by Josse Olson
== END 2023-11-24 20:23 | disposition home or self-care (01) ==
LOC: ER 18:01
DX: M25.512 Pain in left shoulder (principal); I10 Essential (primary) hypertension; Z88.6 Allergy status to analgesic agent; Z91.018 Allergy to other foods; Z86.73 Personal history of transient ischemic attack (TIA), and cerebral infarction without residual deficits
CPT/HCPCS: 70450; 72125; 93005; 99284

== ENCOUNTER 2023-11-25 12:22 | Emergency (ER) | payer OTHER ==
--- NOTE | 2023-11-25 12:35 | EDPHYS ---
Physician Documentation [facility] Name: Geetha Khan Age: 48 yrs Sex: Female : 1975 Arrival Date: 11/25/2023 Time: 12:22 Bed IW1 Private MD: ED Physician Hoa Eddy HPI: 11/24 12:32 This 48 yrs old Female presents to ER via Unassigned with complaints of Chest Pain. sp3 12:32 48-year-old female well-known to emergency department with multiple instances of sp3 malingering now presents again via EMS for chest pain. Patient has normal vital signs, is in no acute distress and I do not believe she is having any cardiac event, cardiopulmonary event, sepsis, shock or any other critical illness. Review of systems otherwise negative.. Historical: - Allergies: 12:37 Aspirin; cm10 12:37 CRANBERRY; cm10 12:37 FISH PRODUCT DERIVATIVES; cm10 12:37 GRAPEFRUIT; cm10 - PMHx: 12:37 Cerebrovascular accident; Hypertensive disorder; cm10 - Immunization history:: Adult Immunizations up to date. - Infectious Disease History:: Denies. - Social history:: Smoking status: Patient reports the use of cigarette tobacco products, smokes one-half pack cigarettes per day. ROS: 12:33 Constitutional: Negative for fever, chills, and weight loss, Eyes: Negative for injury, sp3 pain, redness, and discharge, Neck: Negative for injury, pain, and swelling, Respiratory: Negative for shortness of breath, cough, wheezing, and pleuritic chest pain, Abdomen/GI: Negative for abdominal pain, nausea, vomiting, diarrhea, and constipation, Back: Negative for injury and pain, Skin: Negative for injury, rash, and discoloration, Neuro: Negative for headache, weakness, numbness, tingling, and seizure, Psych: Negative for depression, anxiety, suicide ideation, homicidal ideation, and hallucinations, Allergy/Immunology: Negative for hives, rash, and allergies, 12:33 All other systems are negative, Exam: 12:33 Constitutional: This is a well developed, well nourished patient who is awake, alert, sp3 and in no acute distress. Head/Face: Normocephalic, atraumatic. ENT: Nares patent. No nasal discharge, no septal abnormalities noted. External auditory canals are clear. Oropharynx with no redness, swelling, or masses, exudates, or evidence of obstruction, uvula midline. Mucous membranes moist. Neck: Trachea midline, no thyromegaly or masses palpated, and no cervical lymphadenopathy. Supple, full range of motion without nuchal rigidity, or vertebral point tenderness. No Meningismus. Chest/axilla: Normal chest wall appearance and motion. Nontender with no deformity. No lesions are appreciated. Cardiovascular: Regular rate and rhythm with a normal S1 and S2. No gallops, murmurs, or rubs. Normal PMI, no JVD. No pulse deficits. Respiratory: Lungs have equal breath sounds bilaterally, clear to auscultation and percussion. No rales, rhonchi or wheezes noted. No increased work of breathing, no retractions or nasal flaring. Abdomen/GI: Soft, non-tender, with normal bowel sounds. No distension or tympany. No guarding or rebound. No evidence of tenderness throughout. Back: No spinal tenderness. No costovertebral tenderness. Full range of motion. Vital Signs: 12:35 BP 130 / 90; Pulse 79; Resp 16; Temp 97.1(IR); Pulse Ox 100% on R/A; Weight 74.84 kg; cm10 Height 5 ft. 3 in. ; Pain 10/10; 12:35 Body Mass Index 29.23 (74.84 kg, 160.02 cm) cm10 12:35 Pain Scale: Adult cm10 MDM: 12:33 Data reviewed: vital signs, nurses notes, EMS record, old medical records. ED course: sp3 Patient fully stable at this time. Patient will be discharged.. 12:34 Patient medically screened. sp3 Administered Medications: No medications were administered Disposition Summary: 11/25/23 12:34 Discharge Ordered Notes: Location: Home sp3 Condition: Stable sp3 Diagnosis - Malingering sp3 Followup: sp3 - With: Private Physician - When: As needed - Reason: Continuance of care Discharge Instructions: - Discharge Summary Sheet sp3 - Chronic Pain, Adult sp3 Forms: - Medication Reconciliation Form sp3 - Antibiotic Education sp3 - Prescription Opioid Use sp3 - Patient Portal Instructions sp3 - Leadership Thank You Letter sp3 Signatures: Hoa Eddy MD MD sp3 Bill, Kelsey, RN RN cm10
--- NOTE | 2023-11-25 12:42 | ER ---
Nurse's Notes [facility] Name: Geetha Khan Age: 48 yrs Sex: Female : 1975 Arrival Date: 11/25/2023 Time: 12:22 Bed IW1 Private MD: Diagnosis: Malingering Presentation: 11/24 12:35 Chief complaint: Patient states: Someone was in her house, she got scared and started cm10 having chest pain so she called 911. Coronavirus screen: Client denies travel out of the [place] in the last 14 days. Ebola Screen: Patient denies travel to an Ebola-affected area in the 21 days before illness onset. No symptoms or risks identified at this time. Initial Sepsis Screen: Does the patient meet any 2 criteria? No. Patient's initial sepsis screen is negative. Does the patient have a suspected source of infection? No. Patient's initial sepsis screen is negative. Risk Assessment: Do you want to hurt yourself or someone else? Patient reports no desire to harm self or others. Onset of symptoms was November 25, 2023. 12:35 Method Of Arrival: EMS: [facility] cm10 12:35 Acuity: CORRINA 2 cm10 Triage Assessment: 12:37 General: Appears in no apparent distress. comfortable, Behavior is calm, cooperative. cm10 Pain: Complains of pain in chest Pain currently is 10 out of 10 on a pain scale. Neuro: No deficits noted. Level of Consciousness is awake, alert, obeys commands, Oriented to person, place, time, situation, Appropriate for age. Cardiovascular: No deficits noted. Reports chest pain. Respiratory: No deficits noted. Airway is patent Respiratory effort is even, unlabored, Respiratory pattern is regular, symmetrical. Historical: - Allergies: 12:37 Aspirin; cm10 12:37 CRANBERRY; cm10 12:37 FISH PRODUCT DERIVATIVES; cm10 12:37 GRAPEFRUIT; cm10 - PMHx: 12:37 Cerebrovascular accident; Hypertensive disorder; cm10 - Immunization history:: Adult Immunizations up to date. - Infectious Disease History:: Denies. - Social history:: Smoking status: Patient reports the use of cigarette tobacco products, smokes one-half pack cigarettes per day. Screenin:38 [facility] ED Fall Risk Assessment (Adult) History of falling in the last 3 months, cm10 including since admission Yes- single mechanical fall (1 pt) Confusion or Disorientation No (0 pts) Intoxicated or Sedated No (0 pts) Impaired Gait Yes (1 pt) Mobility Assist Device Used Yes (1 pt) Altered Elimination Yes (1 pt) Score/Fall Risk Level 3 or more points = High Risk Oriented to surroundings, Maintained a safe environment, Hourly rounding (assess needs \T\ fall precautionary measures) done. Abuse screen: Denies threats or abuse. Denies injuries from another. Nutritional screening: No deficits noted. Tuberculosis screening: No symptoms or risk factors identified. Assessment: 12:40 General: Provider states that he does not want an EKG. cm10 Vital Signs: 12:35 BP 130 / 90; Pulse 79; Resp 16; Temp 97.1(IR); Pulse Ox 100% on R/A; Weight 74.84 kg; cm10 Height 5 ft. 3 in. ; Pain 10/10; 12:35 Body Mass Index 29.23 (74.84 kg, 160.02 cm) cm10 12:35 Pain Scale: Adult cm10 ED Course: 12:24 Patient arrived in ED. im 12:30 Hoa Eddy MD is Attending Physician. sp3 12:37 Triage completed. cm10 12:37 Arm band placed on Patient placed in waiting room. cm10 12:38 Patient has correct armband on for positive identification. Provided Education on: cm10 Follow-up instructions. Cardiac monitoring not applicable on this patient. 12:38 No provider procedures requiring assistance completed. Patient did not have IV access cm10 during this emergency room visit. Patient maintains SpO2 saturation greater than 95% on room air. Administered Medications: No medications were administered Medication: 12:40 VIS not applicable for this client. cm10 Outcome: 12:34 Discharge ordered by . sp3 12:40 Discharged to home via wheelchair, with significant other, cm10 12:40 Condition: good 12:40 Discharge instructions given to patient, Instructed on discharge instructions, follow up and referral plans. Demonstrated understanding of instructions, follow-up care, 12:41 Patient left the ED. cm10 Signatures: Hoa Eddy MD MD sp3 Verna Jhaveri Clarissa, RN RN cm10
[2023-11-25 12:47] VITALS: BP 130/90; TEMP 97.1; O2SAT 100
== END 2023-11-25 12:41 | disposition home or self-care (01) ==
LOC: ER 12:22
DX: Z76.5 Malingerer [conscious simulation] (principal)
CPT/HCPCS: 99283

== ENCOUNTER 2023-11-25 20:53 | Emergency (ER) | payer OTHER ==
--- NOTE | 2023-11-25 22:04 | ER ---
Nurse's Notes [facility] [place] Name: Geetha Khan Age: 48 yrs Sex: Female : 1975 Arrival Date: 11/25/2023 Time: 20:53 Bed IW2 Private MD: Diagnosis: Pain in left ankle and joints of left foot;Pain in left shoulder Presentation: 11/24 21:05 Chief complaint: Patient states: Fell out of the bed and hit her left shoulder and left cm10 ankle. Coronavirus screen: Client denies travel out of the [place] in the last 14 days. Ebola Screen: Patient denies travel to an Ebola-affected area in the 21 days before illness onset. No symptoms or risks identified at this time. Initial Sepsis Screen: Does the patient meet any 2 criteria? No. Patient's initial sepsis screen is negative. Does the patient have a suspected source of infection? No. Patient's initial sepsis screen is negative. Risk Assessment: Do you want to hurt yourself or someone else? Patient reports no desire to harm self or others. Onset of symptoms was November 25, 2023. 21:05 Method Of Arrival: EMS: [facility] 10 21:05 Acuity: CORRINA 4 cm10 Triage Assessment: 21:06 General: Appears in no apparent distress. comfortable, Behavior is calm, cooperative. cm10 Neuro: No deficits noted. Level of Consciousness is awake, alert, obeys commands, Oriented to person, place, time, situation, Appropriate for age. Respiratory: No deficits noted. Airway is patent Respiratory effort is even, unlabored, Respiratory pattern is regular, symmetrical. Historical: - Allergies: 21:06 Aspirin; cm10 21:06 CRANBERRY; cm10 21:06 FISH PRODUCT DERIVATIVES; cm10 21:06 GRAPEFRUIT; cm10 - PMHx: 21:06 Cerebrovascular accident; Hypertensive disorder; Myocardial infarction; cm10 - Immunization history:: Adult Immunizations up to date. - Infectious Disease History:: Denies. - Social history:: Smoking status: Patient reports the use of cigarette tobacco products, denies chronic smoking, but will smoke occasionally. Screenin:08 Abuse screen: Denies threats or abuse. Denies injuries from another. Nutritional ss screening: On no prescribed diet. 22:09 [facility] ED Fall Risk Assessment (Adult) History of falling in the last 3 months, ss including since admission Yes- fall prone (multiple falls) (3 pts) Confusion or Disorientation No (0 pts) Intoxicated or Sedated No (0 pts) Impaired Gait Yes (1 pt) Mobility Assist Device Used No (0 pt) Altered Elimination No (0 pt) Score/Fall Risk Level 3 or more points = High Risk Oriented to surroundings, Maintained a safe environment, Educated pt \T\ family on fall prevention, incl call for assistance when getting out of bed. Tuberculosis screening: Never had TB. Assessment: 22:08 Reassessment: Patient appears in no apparent distress at this time. Patient is alert, ss oriented x 3, equal unlabored respirations, skin warm/dry/pink. Neuro: Level of Consciousness is awake, alert, obeys commands. Derm: Skin is pink, warm \T\ dry. Vital Signs: 21:05 BP 125 / 87; Pulse 75; Resp 16; Temp 97.5; Pulse Ox 100% on R/A; Weight 74.84 kg; cm10 Height 5 ft. 3 in. ; Pain 10/10; 21:05 Body Mass Index 29.23 (74.84 kg, 160.02 cm) cm10 21:05 Pain Scale: Adult cm10 ED Course: 20:55 Patient arrived in ED. im 20:56 Kalli Bradshaw PA-C is PHCP. sb4 20:56 Russell Rodriguez MD is Attending Physician. sb4 21:06 Triage completed. cm10 21:07 Arm band placed on Patient placed in waiting room. cm10 21:57 Shoulder Left (2 View) XRAY In Process Unspecified. EDMS 21:57 Ankle Left 3 View XRAY In Process Unspecified. EDMS 22:07 Angelia Jernigan, YANETH is Primary Nurse. ss 22:09 Patient has correct armband on for positive identification. ss 22:09 No provider procedures requiring assistance completed. Patient did not have IV access ss during this emergency room visit. Administered Medications: No medications were administered Medication: 22:08 VIS not applicable for this client. ss Outcome: 22:03 Discharge ordered by . ec2 22:09 Discharged to home ambulatory, ss 22:09 Condition: good 22:09 Discharge instructions given to patient, Instructed on discharge instructions, follow up and referral plans. Demonstrated understanding of instructions, follow-up care, 22:10 Patient left the ED. ss Signatures: Dispatcher [employer] Angelia Hardin RN RN ss Kalli Bradshaw PA-C PA-C sb4 Verna Jhaveri Clarissa RN RN cm10 Russell Rodriguez MD MD ec2 Corrections: (The following items were deleted from the chart) 22:10 22:08 [facility] ED Fall Risk Assessment (Adult) History of falling in the last 3 months, ss including since admission No falls in past 3 months (0 pts) ss
--- NOTE | 2023-11-25 22:04 | EDPHYS ---
Physician Documentation [facility] Name: Geetha Khan Age: 48 yrs Sex: Female : 1975 Arrival Date: 11/25/2023 Time: 20:53 Bed IW2 Private MD: ED Physician Russell Rodriguez HPI: 11/24 21:09 This 48 yrs old Female presents to ER via EMS with complaints of Fall Injury. ec2 21:09 Patient arrives today for reported fall injury. Complaining of left ankle pain as well ec2 as left shoulder pain. No other concerns. No loss of consciousness. Patient reports no other prodromal symptoms. States she was trying to do some exercises subsequently fell.. Historical: - Allergies: 21:06 Aspirin; cm10 21:06 CRANBERRY; cm10 21:06 FISH PRODUCT DERIVATIVES; cm10 21:06 GRAPEFRUIT; cm10 - PMHx: 21:06 Cerebrovascular accident; Hypertensive disorder; Myocardial infarction; cm10 - Immunization history:: Adult Immunizations up to date. - Infectious Disease History:: Denies. - Social history:: Smoking status: Patient reports the use of cigarette tobacco products, denies chronic smoking, but will smoke occasionally. ROS: 21:09 Constitutional: as per hpi ec2 Exam: 21:09 Constitutional: GEN: NAD Head: atraumatic Eyes: EOMI Ears: External ears are ec2 normal. CV: regular rate LUNGS: no respiratory distress ABD: non-distended SKIN: no evidence of rashes MSK: no evidence of trauma, left ankle with TTP, no deformities appreciated, intact distal vasculature. Left shoulder with TTP. No deformities present. No C/T/L spine deformities. Vital Signs: 21:05 BP 125 / 87; Pulse 75; Resp 16; Temp 97.5; Pulse Ox 100% on R/A; Weight 74.84 kg; cm10 Height 5 ft. 3 in. ; Pain 10/10; 21:05 Body Mass Index 29.23 (74.84 kg, 160.02 cm) cm10 21:05 Pain Scale: Adult cm10 MDM: 21:05 Patient medically screened. ec2 21:09 Data reviewed: vital signs. ED course: Patient arrives today for evaluation of left ec2 ankle pain and left shoulder pain after ground-level fall. Examination local pharmacy findings as above. Will obtain radiographs and reassess. Suspect possible sprain or contusion, doubt fracture.. 22:04 ED course: Shoulder right ankle x-ray independently reviewed and interpreted by me, ec2 show no bony fracture. Will discharge home. Return precautions given. 11/24 21:10 Order name: Shoulder Left (2 View) XRAY ec2 11/24 21:10 Order name: Ankle Left 3 View XRAY ec2 Administered Medications: No medications were administered Disposition Summary: 11/25/23 22:03 Discharge Ordered Notes: Location: Home ec2 Condition: Stable ec2 Diagnosis - Pain in left ankle and joints of left foot ec2 - Pain in left shoulder ec2 Followup: ec2 - With: Private Physician - When: - Reason: Re-evaluation by your physician Discharge Instructions: - Discharge Summary Sheet ec2 - Shoulder Pain ec2 Forms: - Medication Reconciliation Form ec2 - Antibiotic Education ec2 - Prescription Opioid Use ec2 - Patient Portal Instructions ec2 - Leadership Thank You Letter ec2 Signatures: Dispatcher [employer] Kelsey Mireles RN RN cm10 Russell Rodriguez MD MD ec2
[2023-11-25 22:14] VITALS: BP 125/87; TEMP 97.5; O2SAT 100
--- NOTE | 2023-11-25 22:17 | RAD REPORT ---
EXAM DESCRIPTION: RAD - Shoulder Left 2 View - 11/25/2023 9:56 pm CLINICAL HISTORY: Left shoulder pain status post fall FINDINGS: No fracture or dislocation is seen involving the left shoulder Osteoporosis. Old rib fractures
--- NOTE | 2023-11-25 22:17 | RAD REPORT ---
EXAM DESCRIPTION: RAD - Ankle Left 3 View -11/25/2023 9:56 pm CLINICAL HISTORY: Left ankle pain status post injury FINDINGS: No fracture or dislocation is seen.
== END 2023-11-25 22:10 | disposition home or self-care (01) ==
LOC: ER 20:53
DX: M25.572 Pain in left ankle and joints of left foot (principal); M25.512 Pain in left shoulder; W18.30XA Fall on same level, unspecified, initial encounter; F17.210 Nicotine dependence, cigarettes, uncomplicated
CPT/HCPCS: 99283

== ENCOUNTER 2023-12-01 21:35 | Emergency (ER) | payer OTHER ==
--- NOTE | 2023-12-01 23:18 | EDPHYS ---
Physician Documentation [facility] Name: Geetha Khan Age: 48 yrs Sex: Female : 1975 Arrival Date: 12/01/2023 Time: 21:35 Bed 15 Private MD: ED Physician Kye De Anda HPI: 11/30 22:40 This 48 yrs old Female presents to ER via Wheelchair with complaints of Anxiety. rt 22:40 Patient with innumerable visits to the emergency department presents to the ED with rt chest pain, anxiety starting about 1 hour prior to arrival. This is similar to previous episodes. Denies other acute complaints at this time, symptoms are mild in severity, no other aggravating alleviating factors.. Historical: - Allergies: 21:57 Aspirin; tl4 21:57 CRANBERRY; tl4 21:57 FISH PRODUCT DERIVATIVES; tl4 21:57 GRAPEFRUIT; tl4 - PMHx: 21:57 Cerebrovascular accident; Hypertensive disorder; Myocardial infarction; tl4 - Immunization history:: Adult Immunizations unknown. - Infectious Disease History:: Denies. - Social history:: Smoking status: Patient reports the use of cigarette tobacco products, smokes one-half pack cigarettes per day. - Family history:: not pertinent. ROS: 22:40 Constitutional: ' Respiratory: Negative for shortness of breath, cough, wheezing, and rt pleuritic chest pain, Abdomen/GI: Negative for abdominal pain, nausea, vomiting, diarrhea, and constipation, Skin: Negative for injury, rash, and discoloration, Neuro: Negative for headache, weakness, numbness, tingling, and seizure, 22:40 Cardiovascular: Positive for chest pain, Negative for edema, 22:40 Psych: Positive for anxiety, Negative for suicidal ideation, Exam: 22:40 Constitutional: This is a well developed, well nourished patient who is awake, alert, rt and in no acute distress. Head/Face: Normocephalic, atraumatic. Chest/axilla: Normal chest wall appearance and motion. Nontender with no deformity. No lesions are appreciated. Cardiovascular: Regular rate and rhythm with a normal S1 and S2. No gallops, murmurs, or rubs. Normal PMI, no JVD. No pulse deficits. Respiratory: Lungs have equal breath sounds bilaterally, clear to auscultation and percussion. No rales, rhonchi or wheezes noted. No increased work of breathing, no retractions or nasal flaring. Abdomen/GI: Soft, non-tender, with normal bowel sounds. No distension or tympany. No guarding or rebound. No evidence of tenderness throughout. Skin: Warm, dry with normal turgor. Normal color with no rashes, no lesions, and no evidence of cellulitis. MS/ Extremity: Pulses equal, no cyanosis. Neurovascular intact. Full, normal range of motion. Neuro: Awake and alert, GCS 15, oriented to person, place, time, and situation. Cranial nerves II-XII grossly intact. Motor strength 5/5 in all extremities. Sensory grossly intact. Cerebellar exam normal. Normal gait. 22:40 ECG was reviewed by the Attending Physician. Vital Signs: 21:56 BP 87 / 59; Pulse 88; Resp 18; Temp 98.2(O); Pulse Ox 98% on R/A; Weight 66.68 kg; tl4 Height 5 ft. 2 in. ; 23:00 BP 121 / 71; Pulse 81; Resp 17; Pulse Ox 98% on R/A; Pain 0/10; rg5 21:56 Body Mass Index 26.89 (66.68 kg, 157.48 cm) tl4 23:00 Pain Scale: Adult rg5 MDM: 21:57 Patient medically screened. rt 23:18 Differential Diagnosis Anxiety disorder, chronic chest pain. Data reviewed: vital rt signs, nurses notes, lab test result(s), EKG. Counseling: I had a detailed discussion with the patient and/or guardian regarding the historical points, exam findings, and any diagnostic results supporting the discharge/admit diagnosis, lab results, the need for outpatient follow up. 11/30 21:59 Order name: Troponin High Sensitivity; Complete Time: 23:13 rt 11/30 21:59 Order name: EKG; Complete Time: 22:00 rt 11/30 21:59 Order name: EKG - Nurse/Tech; Complete Time: 22:18 rt EC:40 Rate is 84 beats/min. Rhythm is regular, Normal Sinus Rhythm with Occasional PVCs, LVH rt present. QRS [place] is Normal. [place] interval is normal. QRS interval is normal. QT interval is normal. No Q waves. Administered Medications: No medications were administered Disposition Summary: 12/01/23 23:17 Discharge Ordered Notes: Location: Home rt Problem: chronic rt Symptoms: are unchanged rt Condition: Stable rt Diagnosis - Chronic chest pain rt Followup: rt - With: Private Physician - When: 2 - 3 days - Reason: Discharge Instructions: - Discharge Summary Sheet rt - Managing Anxiety, Adult rt Forms: - Medication Reconciliation Form rt - Antibiotic Education rt - Prescription Opioid Use rt - Patient Portal Instructions rt - Leadership Thank You Letter rt Signatures: Dispatcher [employer] EDKye Lima MD MD rt Ruben Ruiz, RN RN tl4
--- NOTE | 2023-12-01 23:18 | ER ---
Nurse's Notes [facility] Name: Geetha Khan Age: 48 yrs Sex: Female : 1975 Arrival Date: 12/01/2023 Time: 21:35 Bed 15 Private MD: Diagnosis: Chronic chest pain Presentation: 11/30 21:56 Chief complaint: Patient states: Pt c/o chest pain and anxiety x 30 minutes. Pt also tl4 states vomiting last week. Coronavirus screen: At this time, the client does not indicate any symptoms associated with coronavirus-19. Ebola Screen: No symptoms or risks identified at this time. Initial Sepsis Screen: Does the patient meet any 2 criteria? No. Patient's initial sepsis screen is negative. Does the patient have a suspected source of infection? No. Patient's initial sepsis screen is negative. Risk Assessment: Do you want to hurt yourself or someone else? Patient reports no desire to harm self or others. Onset of symptoms was December 01, 2023 at 21:30. 21:56 Method Of Arrival: Wheelchair tl4 21:56 Acuity: CORRINA 3 tl4 Triage Assessment: 21:57 General: Appears in no apparent distress. Behavior is calm, cooperative. Pain: tl4 Complains of pain in chest. EENT: No signs and/or symptoms were reported regarding the EENT system. Neuro: Level of Consciousness is awake, alert, obeys commands, Oriented to person, place, time, situation. Cardiovascular: Reports chest pain, Denies diaphoresis, lightheadedness, nausea, palpitations, shortness of breath, syncope, Capillary refill < 3 seconds Patient's skin is warm and dry. Respiratory: Airway is patent Respiratory effort is even, unlabored, Respiratory pattern is regular, symmetrical. GI: Reports nausea. : No signs and/or symptoms were reported regarding the genitourinary system. Derm: No signs and/or symptoms reported regarding the dermatologic system. Musculoskeletal: No signs and/or symptoms reported regarding the musculoskeletal system. Historical: - Allergies: 21:57 Aspirin; tl4 21:57 CRANBERRY; tl4 21:57 FISH PRODUCT DERIVATIVES; tl4 21:57 GRAPEFRUIT; tl4 - PMHx: 21:57 Cerebrovascular accident; Hypertensive disorder; Myocardial infarction; tl4 - Immunization history:: Adult Immunizations unknown. - Infectious Disease History:: Denies. - Social history:: Smoking status: Patient reports the use of cigarette tobacco products, smokes one-half pack cigarettes per day. - Family history:: not pertinent. Assessment: 22:00 Reassessment: No changes from previously documented assessment. Patient and/or family rg5 updated on plan of care and expected duration. Pain level reassessed. Patient states symptoms have improved. 23:00 Reassessment: No changes from previously documented assessment. Patient and/or family rg5 updated on plan of care and expected duration. Pain level reassessed. Patient is alert, oriented x 3, equal unlabored respirations, skin warm/dry/pink. Vital Signs: 21:56 BP 87 / 59; Pulse 88; Resp 18; Temp 98.2(O); Pulse Ox 98% on R/A; Weight 66.68 kg; tl4 Height 5 ft. 2 in. ; 23:00 BP 121 / 71; Pulse 81; Resp 17; Pulse Ox 98% on R/A; Pain 0/10; rg5 21:56 Body Mass Index 26.89 (66.68 kg, 157.48 cm) tl4 23:00 Pain Scale: Adult rg5 ED Course: 21:37 Patient arrived in ED. im 21:39 Kye De Anda MD is Attending Physician. rt 21:57 Triage completed. tl4 21:58 Arm band placed on right wrist. tl4 22:09 Hakan Crowley, RN is Primary Nurse. rg5 22:18 EKG done, by ED staff, reviewed by Kye De Anda MD. oe Administered Medications: No medications were administered Outcome: 23:17 Discharge ordered by . rt 23:40 Patient left the ED. rg5 Signatures: Yoni Schreiber Ryan, MD MD rt Verna Jhaveri im Ruben Ruiz RN RN tl4 Hakan Crowley, YANETH RN rg5
[2023-12-01 23:44] VITALS: TEMP 98.2; O2SAT 98
[2023-12-01 23:45] VITALS: BP 121/71
--- NOTE | 2023-12-02 12:48 | EKG ---
Test Date: 2023-12-01 Test Time: 22:15:32 Stationary Steam Engineer: SOLO MEASUREMENT RESULTS: Intervals: Rate: 84 [place]: 184 QRSD: 88 QT: 384 QTc: 453 [place]: P: 54 [place]: 184 QRS: 10 T: 138 INTERPRETIVE STATEMENTS: Sinus rhythm with occasional premature ventricular complexes Left ventricular hypertrophy with repolarization abnormality Abnormal ECG Compared to ECG 11/29/2023 17:19:48 Ventricular premature complex(es) now present Electronically Signed On 12-02-23 12:46:47 CDT by Josse Olson
== END 2023-12-01 23:40 | disposition home or self-care (01) ==
LOC: ER 21:35
DX: R07.9 Chest pain, unspecified (principal); I10 Essential (primary) hypertension; I25.2 Old myocardial infarction; F17.210 Nicotine dependence, cigarettes, uncomplicated; Z86.73 Personal history of transient ischemic attack (TIA), and cerebral infarction without residual deficits
CPT/HCPCS: 36415; 84484; 93005; 99282

== ENCOUNTER 2023-12-03 18:34 | Emergency (ER) | payer OTHER ==
[2023-12-03] MEDS ORDERED: ONDANSETRON 4 MG (ODT) TAB ONE (18:47)
--- NOTE | 2023-12-03 19:33 | EDPHYS ---
Physician Documentation [facility] Name: Geetha Khan Age: 48 yrs Sex: Female : 1975 Arrival Date: 12/03/2023 Time: 18:34 Bed 11 Private MD: ED Physician Kye De Anda HPI: 12/02 19:35 This 48 yrs old Female presents to ER via EMS with complaints of Chest Pain. kb 19:35 Patient is a 48-year-old female who presents for substernal chest pain that started 1 kb hour ago. States pain is similar to previous episodes of chronic chest pain. Denies shortness of breath. States she has had nausea intermittently for 1 week when she gets hot.. 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 - Infectious Disease History:: Denies. - Social history:: Smoking status: Patient reports the use of cigarette tobacco products, smokes one-half pack cigarettes per day. ROS: 19:31 Constitutional: As per HPI kb Exam: 19:31 Constitutional: This is a well developed, well nourished patient who is awake, alert, kb and in no acute distress. Head/Face: Normocephalic, atraumatic. ENT: Moist Mucous membranes Cardiovascular: Regular rate Respiratory: Respirations even and unlabored. No increased work of breathing. Talking in full sentences Abdomen/GI: Soft, non-tender. No distention Skin: Warm, dry with normal turgor. Normal color. MS/ Extremity: Pulses equal, no cyanosis. Neurovascular intact. Full, normal range of motion. Neuro: Awake and alert, GCS 15, oriented to person, place, time, and situation. Moves all extremities. Normal gait. 19:31 ECG was reviewed by the Attending Physician. Vital Signs: 18:36 BP 109 / 73; Pulse 91; Resp 17; Temp 97.4; Pulse Ox 97% ; Weight 66.68 kg; Height 5 ft. me1 2 in. ; Pain 10/10; 19:33 BP 109 / 69; Pulse 89; Resp 16; Temp 98.3; Pulse Ox 98% ; me1 18:36 Body Mass Index 26.89 (66.68 kg, 157.48 cm) me1 18:36 Pain Scale: Adult me1 MDM: 18:36 Patient medically screened. kb 19:34 Differential diagnosis: acute mi, anxiety, arrhythmia. Data reviewed: vital signs, kb nurses notes. Test considered but Not performed: X-ray: CXR considered but pain is similar to chronic chest pain, lungs clear bilaterally, respirations even and unlabored.. Historians other than the Patient: EMS: [facility]. Counseling: I had a detailed discussion with the patient and/or guardian regarding the historical points, exam findings, and any diagnostic results supporting the discharge/admit diagnosis, lab results, the need for outpatient follow up, a family practitioner, to return to the emergency department if symptoms worsen or persist or if there are any questions or concerns that arise at home. 12/02 18:39 Order name: Troponin High Sensitivity; Complete Time: 19:33 kb 12/02 18:39 Order name: EKG - Nurse/Tech; Complete Time: 19:04 kb EC:31 Rate is 81 beats/min. Rhythm is regular. QRS [place] is Normal. [place] interval is normal at kb 184 msec. QRS interval is normal at 82 msec. QT interval is normal at 462 msec. Administered Medications: 18:51 Drug: Ondansetron PO 4 mg PO once Route: PO; me1 19:20 Follow up: Response: No adverse reaction; Nausea is decreased me1 Disposition: 19:40 Co-signature as Attending Physician, Kye De Anda MD I reviewed the patient's care rt provided by the Advanced Practice Provider and agree with the diagnosis and treatment plan. Disposition Summary: 12/03/23 19:33 Discharge Ordered Notes: Location: Home kb Condition: Stable kb Diagnosis - Chest pain, unspecified kb Followup: kb - With: Emergency Department - When: As needed - Reason: Worsening of condition Followup: kb - With: Private Physician - When: 2 - 3 days - Reason: Recheck today's complaints, Continuance of care, Re-evaluation by your physician Discharge Instructions: - Discharge Summary Sheet kb - Nonspecific Chest Pain, Adult, [id number] kb Forms: - Medication Reconciliation Form kb - Antibiotic Education kb - Prescription Opioid Use kb - Patient Portal Instructions kb - Leadership Thank You Letter kb Signatures: Dispatcher [employer] EDMS Kathy Kerns, GENERATION ENGINEER-C GENERATION ENGINEER-Kye Brady MD MD rt Nohemy Clark, RN RN me1 Corrections: (The following items were deleted from the chart) 18:39 18:39 Troponin High Sensitivity+[id number].LAB.BRZ ordered. EDMS EDMS
--- NOTE | 2023-12-03 19:33 | ER ---
Nurse's Notes [facility] Name: Geetha Khan Age: 48 yrs Sex: Female : 1975 Arrival Date: 12/03/2023 Time: 18:34 Bed 11 Private MD: Diagnosis: Chest pain, unspecified Presentation: 12/02 18:36 Chief complaint: EMS states: toned out for chest pain. midsternal, heavy, 10/10. me1 Coronavirus screen: Vaccine status: Patient reports being unvaccinated. Ebola Screen: No symptoms or risks identified at this time. Initial Sepsis Screen: Does the patient meet any 2 criteria? No. Patient's initial sepsis screen is negative. Does the patient have a suspected source of infection? No. Patient's initial sepsis screen is negative. Risk Assessment: Do you want to hurt yourself or someone else? Patient reports no desire to harm self or others. Onset of symptoms was December 03, 2023. 18:36 Method Of Arrival: EMS: [facility] 18:36 Acuity: CORRINA 4 me1 Triage Assessment: 18:42 General: Appears comfortable, unkempt, well developed, well nourished, Behavior is me1 calm, cooperative, appropriate for age, Reports midsternal cp that is heavy, 10/10. Pain: Complains of pain in chest Pain does not radiate. Pain currently is 10 out of 10 on a pain scale. Quality of pain is described as heavy, Pain began suddenly, Is continuous. EENT: No signs and/or symptoms were reported regarding the EENT system. Neuro: Level of Consciousness is awake, alert, obeys commands, Oriented to person, place, time, situation, Appropriate for age. Cardiovascular: Patient's skin is warm and dry. Cardiovascular: Reports chest pain. Respiratory: Airway is patent Respiratory effort is even, unlabored, Respiratory pattern is regular, symmetrical. GI: No signs and/or symptoms were reported involving the gastrointestinal system. : No signs and/or symptoms were reported regarding the genitourinary system. Derm: Skin is intact, is healthy with good turgor, Skin is pink, warm \T\ dry. Musculoskeletal: No signs and/or symptoms reported regarding the musculoskeletal system. PHYSICAL THERAPY RESIDENT: 18:42 LMP 11/28/2023, unknown me1 Historical: - Allergies: 18:41 Aspirin; me1 18:41 CRANBERRY; me1 18:41 FISH PRODUCT DERIVATIVES; me1 18:41 GRAPEFRUIT; me1 - PMHx: 18:41 Cerebrovascular accident; Myocardial infarction; Hypertensive disorder; me1 - Immunization history:: Adult Immunizations up to date. - Infectious Disease History:: Denies. - Social history:: Smoking status: Patient reports the use of cigarette tobacco products, smokes one-half pack cigarettes per day. Screenin:44 [facility] ED Fall Risk Assessment (Adult) History of falling in the last 3 months, me1 including since admission No falls in past 3 months (0 pts) Confusion or Disorientation No (0 pts) Intoxicated or Sedated No (0 pts) Impaired Gait No (0 pts) Mobility Assist Device Used No (0 pt) Altered Elimination No (0 pt) Score/Fall Risk Level 0 - 2 = Low Risk Maintained a safe environment, Provided non-skid footwear, Hourly rounding (assess needs \T\ fall precautionary measures) done. Abuse screen: Denies threats or abuse. Nutritional screening: No deficits noted. Tuberculosis screening: No symptoms or risk factors identified. Assessment: 18:44 General: See triage assessment. . Pain: Complains of pain in chest. me1 Vital Signs: 18:36 BP 109 / 73; Pulse 91; Resp 17; Temp 97.4; Pulse Ox 97% ; Weight 66.68 kg; Height 5 ft. me1 2 in. ; Pain 10/10; 19:33 BP 109 / 69; Pulse 89; Resp 16; Temp 98.3; Pulse Ox 98% ; me1 18:36 Body Mass Index 26.89 (66.68 kg, 157.48 cm) me1 18:36 Pain Scale: Adult ky1 ED Course: 18:35 Patient arrived in ED. me1 18:36 Kathy Kerns FNP-C [facility]. kb 18:36 Kye De Anda MD is Attending Physician. kb 18:41 Triage completed. me1 18:42 Arm band placed on Patient placed in an exam room. me1 18:44 Patient has correct armband on for positive identification. Bed in low position. Call [facility] light in reach. Side rails up X2. Provided Education on: POC. Verbalized understanding. . Client placed on continuous cardiac and pulse oximetry monitoring. NIBP monitoring applied. Pulse ox on. NIBP on. 18:44 No provider procedures requiring assistance completed. me1 19:04 Troponin High Sensitivity Sent. me1 19:04 Patient did not have IV access during this emergency room visit. me1 19:30 Nohemy Clark, RN is Primary Nurse. me1 Administered Medications: 18:51 Drug: Ondansetron PO 4 mg PO once Route: PO; me1 19:20 Follow up: Response: No adverse reaction; Nausea is decreased me1 Medication: 18:44 VIS not applicable for this client. me1 Outcome: 19:33 Discharge ordered by MD. kb 19:39 Discharged to home via wheelchair, me1 19:39 Condition: stable 19:39 Discharge instructions given to patient, Instructed on discharge instructions, follow up and referral plans. Demonstrated understanding of instructions, follow-up care, 19:45 Patient left the ED. me1 Signatures: Kathy Kerns, TIP STRETCHER-C TIP STRETCHER-Ckb Nohemy Clark, RN RN me1
[2023-12-03 20:13] VITALS: BP 109/69; TEMP 98.3; O2SAT 98
--- NOTE | 2023-12-05 12:23 | EKG ---
Test Date: 2023-12-03 Test Time: 19:02:40 Adjuster Leader: MEASUREMENT RESULTS: Intervals: Rate: 81 MS: 184 QRSD: 82 QT: 398 QTc: 462 [place]: P: 55 MS: 184 QRS: 16 T: 147 INTERPRETIVE STATEMENTS: Normal sinus rhythm Left ventricular hypertrophy with repolarization abnormality Abnormal ECG Compared to ECG 12/01/2023 22:15:32 Ventricular premature complex(es) no longer present Electronically Signed On 12-05-23 12:18:19 CDT by Alan Garay
--- NOTE | 2023-12-05 12:23 | EKG ---
Test Date: 2023-12-03 Test Time: 19:40:05 Police Booking Officer: MEASUREMENT RESULTS: Intervals: Rate: 87 AL: 172 QRSD: 80 QT: 372 QTc: 447 [place]: P: 34 AL: 172 QRS: 2 T: 30 INTERPRETIVE STATEMENTS: Normal sinus rhythm Normal ECG Compared to ECG 12/03/2023 19:02:40 Left ventricular hypertrophy no longer present Early repolarization no longer present Electronically Signed On 12-05-23 12:18:18 CDT by Alan Garay
== END 2023-12-03 19:45 | disposition home or self-care (01) ==
LOC: ER 18:34
DX: R07.9 Chest pain, unspecified (principal); I10 Essential (primary) hypertension; Z86.73 Personal history of transient ischemic attack (TIA), and cerebral infarction without residual deficits; F17.210 Nicotine dependence, cigarettes, uncomplicated
CPT/HCPCS: 36415; 84484; Q0162; 93005; 99284

== ENCOUNTER 2023-12-04 16:55 | Emergency (ER) | payer OTHER ==
--- NOTE | 2023-12-04 18:28 | EDPHYS ---
Physician Documentation [facility] Name: Geetha Khan Age: 48 yrs Sex: Female : 1975 Arrival Date: 12/04/2023 Time: 16:55 Bed DX4 Private MD: ED Physician Michael Grimm HPI: 12/03 17:26 This 48 yrs old Female presents to ER via Wheelchair with complaints of Chest juan diego Congestion. 17:26 The patient or guardian reports chest pain that is located primarily in the anterior juan diego chest wall, bilaterally. Onset: 1 day(s) ago. The pain does not radiate. Associated signs and symptoms: The patient has no apparent associated signs or symptoms. The chest pain is described as aching, WITH OCCASIONAL COUGH. Duration: The patient or guardian reports multiple episodes, with no pattern. Modifying factors: The symptoms are alleviated by nothing. the symptoms are aggravated by nothing. Severity of pain: At its worst the pain was mild in the emergency department the pain is unchanged. The patient has experienced similar episodes in the past, multiple times, chronically. Historical: - Allergies: 17:21 Aspirin; iw 17:21 CRANBERRY; iw 17:21 FISH PRODUCT DERIVATIVES; iw 17:21 GRAPEFRUIT; iw - PMHx: 17:21 Cerebrovascular accident; Hypertensive disorder; Myocardial infarction; iw - Family history:: not pertinent. ROS: 17:26 Constitutional: Negative for fever, chills, and weight loss, Eyes: Negative for injury, juan diego pain, redness, and discharge, ENT: Negative for injury, pain, and discharge, Neck: Negative for injury, pain, and swelling, Abdomen/GI: Negative for abdominal pain, nausea, vomiting, diarrhea, and constipation, Back: Negative for injury and pain, : Negative for injury, bleeding, discharge, and swelling, MS/Extremity: Negative for injury and deformity, Skin: Negative for injury, rash, and discoloration, Neuro: Negative for headache, weakness, numbness, tingling, and seizure, Psych: Negative for depression, anxiety, suicide ideation, homicidal ideation, and hallucinations, Allergy/Immunology: Negative for hives, rash, and allergies, Endocrine: Negative for neck swelling, polydipsia, polyuria, polyphagia, and marked weight changes, Hematologic/Lymphatic: Negative for swollen nodes, abnormal bleeding, and unusual bruising, 17:26 Cardiovascular: Positive for chest pain, with cough, 17:26 Respiratory: Positive for cough, with no reported sputum, Exam: 17:26 Constitutional: This is a well developed, well nourished patient who is awake, alert, juan diego and in no acute distress. Head/Face: Normocephalic, atraumatic. Eyes: Pupils equal round and reactive to light, extra-ocular motions intact. Lids and lashes normal. Conjunctiva and sclera are non-icteric and not injected. Cornea within normal limits. Periorbital areas with no swelling, redness, or edema. ENT: Nares patent. No nasal discharge, no septal abnormalities noted. Tympanic membranes are normal and external auditory canals are clear. Oropharynx with no redness, swelling, or masses, exudates, or evidence of obstruction, uvula midline. Mucous membranes moist. Neck: Trachea midline, no thyromegaly or masses palpated, and no cervical lymphadenopathy. Supple, full range of motion without nuchal rigidity, or vertebral point tenderness. No Meningismus. Chest/axilla: Normal chest wall appearance and motion. Nontender with no deformity. No lesions are appreciated. Cardiovascular: Regular rate and rhythm with a normal S1 and S2. No gallops, murmurs, or rubs. Normal PMI, no JVD. No pulse deficits. Respiratory: Lungs have equal breath sounds bilaterally, clear to auscultation and percussion. No rales, rhonchi or wheezes noted. No increased work of breathing, no retractions or nasal flaring. Abdomen/GI: Soft, non-tender, with normal bowel sounds. No distension or tympany. No guarding or rebound. No evidence of tenderness throughout. Back: No spinal tenderness. No costovertebral tenderness. Full range of motion. Skin: Warm, dry with normal turgor. Normal color with no rashes, no lesions, and no evidence of cellulitis. MS/ Extremity: Pulses equal, no cyanosis. Neurovascular intact. Full, normal range of motion. Neuro: Awake and alert, GCS 15, oriented to person, place, time, and situation. Cranial nerves II-XII grossly intact. Motor strength 5/5 in all extremities. Sensory grossly intact. Cerebellar exam normal. Normal gait. Psych: Awake, alert, with orientation to person, place and time. Behavior, mood, and affect are within normal limits. 17:26 ECG was reviewed by the Attending Physician. Vital Signs: 17:38 BP 94 / 61; Pulse 80; Resp 16; Temp 98.2; Pulse Ox 97% on R/A; Pain 9/10; iw 17:38 Pain Scale: Adult iw MDM: 17:11 Patient medically screened. juan diego 17:28 HEART Score: History: Slightly Suspicious (0), ECG: Non specific repolarization juan diego disturbance / LBTB / PM (1), Age: > 45 and < 65 years (1), Risk Factors: > or = 3 Risk factors for atherosclerotic disease (2), [Hypertension] [+ Family HX] [Obesity]. The patient was not given aspirin in the Emergency Department. Patient reports taking aspirin within the past 24 hours. YEVGENIY Risk Score: 1 - Three or more CAD risk factors, 1 - ASA use in past 7 days, 1 - Recent [<24hrs] Severe Angina. Data reviewed: vital signs, nurses notes, EKG. I considered the following discharge prescriptions or medication management in the emergency department Medications were administered in the Emergency Department. See MAR. Independent interpretation of the following test(s) in the Emergency Department EKG: See my EKG interpretation above. Test considered but Not performed: Labs: NOLABS. Care significantly affected by the following chronic conditions: Hypertension, Obesity. Counseling: I had a detailed discussion with the patient and/or guardian regarding the historical points, exam findings, and any diagnostic results supporting the discharge/admit diagnosis, radiology results, the need for outpatient follow up, for definitive care, a enrollment consultant, a family practitioner. 12/03 17:40 Order name: Troponin High Sensitivity; Complete Time: 18:27 juan diego 12/03 17:17 Order name: EKG; Complete Time: 17:17 juan diego 12/03 17:17 Order name: EKG - Nurse/Tech; Complete Time: 17:39 juan diego Administered Medications: No medications were administered Disposition Summary: 12/04/23 18:27 Discharge Ordered Notes: Location: Home juan diego Problem: new juan diego Symptoms: have improved juan diego Condition: Stable juan diego Diagnosis - Chest pain, unspecified juan diego - Essential (primary) hypertension juan diego Followup: juan diego - With: Private Physician - When: 2 - 3 days - Reason: Recheck today's complaints, Continuance of care, Re-evaluation by your physician Followup: juan digeo - With: Josse Olson MD - When: 2 - 3 days - Reason: Recheck today's complaints, Continuance of care, Re-evaluation by your physician Discharge Instructions: - Discharge Summary Sheet juan diego - Nonspecific Chest Pain, Adult juan diego - Hypertension, Adult juan diego - Nonspecific Chest Pain, Adult, [id number] juan diego - How to Take Your Blood Pressure, [id number] juan diego - Aspirin and Your Heart juan diego - Managing Your Hypertension juan diego Forms: - Medication Reconciliation Form juan diego - Antibiotic Education juan diego - Prescription Opioid Use juan diego - Patient Portal Instructions juan diego - Leadership Thank You Letter [facility] Signatures: Dispatcher [employer] EDMichael Salas MD MD cha Williams, Irene RN RN iw Corrections: (The following items were deleted from the chart) 17:41 17:41 Troponin High Sensitivity+C.LAB.BRZ ordered. [facility]
--- NOTE | 2023-12-04 18:28 | ER ---
Nurse's Notes [facility] Name: Geetha Khan Age: 48 yrs Sex: Female : 1975 Arrival Date: 12/04/2023 Time: 16:55 Bed DX4 Private MD: Diagnosis: Chest pain, unspecified;Essential (primary) hypertension Presentation: 12/03 17:21 Chief complaint: Patient states: chest pain X1 hour. Coronavirus screen: At this time, iw the client does not indicate any symptoms associated with coronavirus-19. Ebola Screen: No symptoms or risks identified at this time. 17:21 Method Of Arrival: Wheelchair iw 17:21 Acuity: CORRINA 3 iw Historical: - Allergies: 17:21 Aspirin; iw 17:21 CRANBERRY; iw 17:21 FISH PRODUCT DERIVATIVES; iw 17:21 GRAPEFRUIT; iw - PMHx: 17:21 Cerebrovascular accident; Hypertensive disorder; Myocardial infarction; iw - Family history:: not pertinent. Vital Signs: 17:38 BP 94 / 61; Pulse 80; Resp 16; Temp 98.2; Pulse Ox 97% on R/A; Pain 9/10; iw 17:38 Pain Scale: Adult iw ED Course: 16:57 Patient arrived in ED. iw 17:11 Michael Grimm MD is Attending Physician. jaun diego 17:18 Iqra Issa, RN is Primary Nurse. iw 17:21 Triage completed. iw 18:02 Troponin High Sensitivity Sent. iw 18:27 Josse Olson MD is Referral Physician. juan diego Administered Medications: No medications were administered Outcome: 18:27 Discharge ordered by . juan diego 18:40 Patient left the ED. iw Signatures: Michael Grimm MD MD cha Williams, Irene, RN RN iw
[2023-12-04 18:48] VITALS: BP 94/61; TEMP 98.2; O2SAT 97
--- NOTE | 2023-12-05 12:17 | EKG ---
Test Date: 2023-12-04 Test Time: 17:35:06 Car Restorer: SHAY MEASUREMENT RESULTS: Intervals: Rate: 82 VA: 186 QRSD: 84 QT: 390 QTc: 455 [place]: P: 42 VA: 186 QRS: 0 T: 148 INTERPRETIVE STATEMENTS: Normal sinus rhythm Left ventricular hypertrophy with repolarization abnormality Abnormal ECG Compared to ECG 12/03/2023 19:40:05 Left ventricular hypertrophy now present Early repolarization now present Electronically Signed On 12-05-23 12:15:10 CDT by Alan Garay
== END 2023-12-04 18:40 | disposition home or self-care (01) ==
LOC: ER 16:55
DX: R07.9 Chest pain, unspecified (principal); I10 Essential (primary) hypertension; I25.2 Old myocardial infarction; Z86.73 Personal history of transient ischemic attack (TIA), and cerebral infarction without residual deficits; Z88.8 Allergy status to other drugs, medicaments and biological substances; Z91.013 Allergy to seafood; Z91.018 Allergy to other foods
CPT/HCPCS: 36415; 84484; 93005; 99282

== ENCOUNTER 2023-12-18 20:16 | Emergency (ER) | payer OTHER ==
[2023-12-18] MEDS ORDERED: NA CHLORIDE 0.9% 1,000 ML ONE (21:02)
[2023-12-18] MEDS ORDERED: ONDANSETRON 4 MG/2 ML VIAL ONE (21:02)
[2023-12-18] MEDS ORDERED: MIDODRINE HCL 5 MG TABLET ONE (21:28)
[2023-12-18 21:52] LABS: Absolute Eosinophils 0.1 K/uL (0-0.5); Absolute Lymphocytes (CBC) 1.4 K/uL (0.7-4.9); Absolute Monocytes 0.4 K/uL (0.1-1.3); Absolute Neutrophil 2.9 K/uL (1.8-8.0); Basophils % 0.9 % (0-1.3); Eosinophils % 1.2 % (0-4.4); Hematocrit 38.7 % (36.0-45.0); Hemoglobin 13.2 g/dL (12.0-15.0); Lymphocytes % 29.6 % (15.3-44.8); MCH 35.6 pg (27.0-35.0); MCV 104.8 fL (80-100); MPV 7.1 fL (7.6-11.3); Monocytes % 7.5 % (3.3-12.3); Neutrophils % 60.8 % (41.7-73.7); Nucleated Red Blood Cells % 0.3 % (0-0); Platelets 209 thou/uL (152-406); RBC Red Blood Cell Count 3.69 M/uL (3.86-4.86); Red Cell Distribution Width 13.9 % (12.1-15.2)
[2023-12-18 22:10] LABS: Albumin 4.1 g/dL (3.4-5.0); Albumin/Globulin Ratio 1.4 (1.1-1.8); Anion Gap 10.5 mEq/L (5.0-15.0); Bilirubin Total 0.3 mg/dL (0.2-1.0); Globulin 2.9 g/dL (2.3-3.5)
[2023-12-18 22:14] LABS: Potassium 5.5 mEq/L (3.5-5.1)
--- NOTE | 2023-12-18 23:54 | EDPHYS ---
Physician Documentation [facility] Name: Geetha Khan Age: 48 yrs Sex: Female : 1975 Arrival Date: 12/18/2023 Time: 20:16 Bed 4 Private MD: ED Physician Hoa Eddy HPI: 12/17 23:42 This 48 yrs old Female presents to ER via EMS with complaints of Abdominal Pain, sb4 Nausea/Vomiting/Diarrhea. 23:42 The patient presents with abdominal pain that is diffuse. Onset: The symptoms/episode sb4 began/occurred 3 week(s) ago. The symptoms do not radiate. Associated signs and symptoms: Pertinent positives: nausea and vomiting. The symptoms are described as vague. Modifying factors: The symptoms are alleviated by nothing, the symptoms are aggravated by nothing. The patient has not experienced similar symptoms in the past. The patient has not recently seen a physician. Historical: - Allergies: 20:50 Aspirin; tm6 20:50 CRANBERRY; tm6 20:50 FISH PRODUCT DERIVATIVES; tm6 20:50 GRAPEFRUIT; tm6 20:50 SHELLFISH; tm6 - PMHx: 20:50 Cerebrovascular accident; Chronic obstructive lung disease; Chronic obstructive lung tm6 disease; Hypertensive disorder; Myocardial infarction; Seizure; - PSHx: 20:50 None; tm6 - Immunization history:: Client reports receiving the 2nd dose of the Covid vaccine. - Infectious Disease History:: Denies. - Social history:: Smoking status: unknown. ROS: 23:42 Constitutional: Negative for fever, chills, and weight loss, sb4 23:42 Abdomen/GI: Positive for abdominal pain, nausea and vomiting, 23:42 Neuro: Positive for near syncope, weakness, 23:42 All other systems are negative, Exam: 23:42 Head/Face: Normocephalic, atraumatic. Eyes: Extra-ocular motions intact. Periorbital sb4 areas with no swelling, redness, or edema. ENT: Mucous membranes moist. Cardiovascular: Regular rate and rhythm with a normal S1 and S2. Respiratory: Lungs have equal breath sounds bilaterally, clear to auscultation and percussion. No rales, rhonchi or wheezes noted. No increased work of breathing, no retractions or nasal flaring. Abdomen/GI: Soft, non-tender, no distension. Skin: Warm, dry with normal turgor. Normal color with no rashes, no lesions, and no evidence of cellulitis. 23:42 Constitutional: The patient appears alert, awake, obviously ill, pale, Vital Signs: 20:48 BP 72 / 44; Pulse 79; Resp 16; Temp 98.1(TE); Pulse Ox 100% on R/A; MAP 54 mmHg; tm6 20:50 BP 77 / 51; Pulse 79; Resp 18; Pulse Ox 74% ; kj2 22:14 BP 85 / 60; Pulse 73; Resp 16; Pulse Ox 100% on R/A; kj2 23:11 BP 107 / 88; Pulse 79; Resp 18; Pulse Ox 100% on R/A; kj2 12/18 00:08 BP 90 / 71; Pulse 78; Resp 18; Temp 98; Pulse Ox 100% on R/A; kj2 MDM: 12/17 20:35 Patient medically screened. sb4 23:51 Data reviewed: vital signs, nurses notes, EMS record, lab test result(s), EKG, sb4 radiologic studies, and as a result, I will discharge patient. Consideration of Admission/Observation Escalation of care including admission/observation considered. Care significantly affected by the following chronic conditions: Hypertension, Chronic Obstructive Pulmonary Disease. Counseling: I had a detailed discussion with the patient and/or guardian regarding the historical points, exam findings, and any diagnostic results supporting the discharge/admit diagnosis, lab results, radiology results, the need for further work-up and treatment in the hospital, to return to the emergency department if symptoms worsen or persist or if there are any questions or concerns that arise at home, smoking cessation. Refusal of service: The patient/guardian displays adequate decision making capability and despite a detailed discussion of alternatives, benefits, risks, and consequences refuses: Admission to the hospital for further work-up and treatment. ED course: Recommended admission due to acute kidney injury, dehydration, hypotension, and elevated liver enzyme however patient refused. She understands that the risks of her leaving could lead to deterioration of condition and possible and is choosing to leave against medical advice. she states that she feels better and she wants to go home to her . I instructed her to discontinue her blood pressure medication as it has recurrently been causing her to be hypotensive and to return for any new or worsening symptoms she understands and agrees with the plan of care. 12/17 20:42 Order name: CBC with Diff; Complete Time: 22:16 sb4 12/17 20:42 Order name: CMP; Complete Time: 22:16 sb4 12/17 20:42 Order name: Lipase; Complete Time: 22:16 sb4 12/17 22:16 Order name: CT Abd/Pelvis - Without Contrast sb4 12/17 20:42 Order name: IV Saline Lock; Complete Time: 21:34 sb4 12/17 20:42 Order name: Labs collected and sent; Complete Time: 21:34 sb4 12/17 21:16 Order name: EKG - Nurse/Tech; Complete Time: 21:21 sb4 EC:57 Rate is 73 beats/min. Rhythm is regular, Sinus Rhythm with Occasional PVCs. OR interval sb4 is prolonged at 202 msec. QRS interval is normal at 110 msec. QT interval is normal at 416 msec. Clinical impression: No evidence of ischemia. Interpreted by me. Reviewed by me. Administered Medications: 21:36 Drug: midodrine 10 mg PO once Route: PO; kj2 12/18 00:11 Follow up: Response: No adverse reaction kj2 12/17 21:37 Drug: NS 0.9% IV 1000 ml IV at 1 bolus Per protocol; 1000 mL bolus Route: IV; Rate: 1 kj2 bolus; Site: left antecubital; 12/18 00:11 Follow up: Response: No adverse reaction; IV Status: Completed infusion; IV Intake: kj2 1000ml 12/17 21:37 Drug: Ondansetron IVP 4 mg IVP once; over 2 minutes Route: IVP; Site: left antecubital; kj2 12/18 00:11 Follow up: Response: No adverse reaction kj2 00:08 CANCELLED (Patient Refused): ns 0.9% 1000 ml IV at 1 bolus Per protocol; 1000 mL bolus kj2 Disposition Summary: 12/18/23 23:54 Discharge Ordered Problem: new sb4 Symptoms: have improved sb4 Condition: Stable sb4 Diagnosis - Acute kidney failure, unspecified sb4 - Dehydration sb4 - Transaminitis sb4 - Hypotension, unspecified sb4 Followup: sb4 - With: Emergency Department - When: As needed - Reason: Trouble breathing, Worsening of condition Discharge Instructions: - Discharge Summary Sheet sb4 - Dehydration, Adult sb4 - Acute Kidney Injury, Adult sb4 - Hypotension, [id number] sb4 Forms: - Patient Portal Instructions sb4 - Leadership Thank You Letter sb4 Signatures: Dispatcher [employer] Kalli Boudreaux PA-C PA-C sb4 Greg Allen, RN RN tm6 Hortencia Maldonado, RN RN kj2 Corrections: (The following items were deleted from the chart) 12/17 20:43 20:42 CBC+H.LAB.BRZ ordered. EDMS EDMS 20:43 20:42 COMPREHENSIVE METABOLIC PANEL+C.LAB.BRZ ordered. EDMS EDMS 20:43 20:42 LIPASE+C.LAB.BRZ ordered. EDMS EDMS 20:43 20:43 Abdomen Pelvis W Con+CT.RAD.BRZ ordered. EDMS EDMS 23:58 23:51 ED course: Recommended admission due to acute kidney injury, dehydration, sb4 hypotension, and elevated liver enzyme however patient refused. She understands that the risks of her leaving could lead to deterioration of condition and possible . she states that she feels better and she wants to go home to her . I instructed her to discontinue her blood pressure medication as it has recurrently been causing her to be hypotensive and to return for any new or worsening symptoms she understands and agrees with the plan of care. sb4 12/18 00:08 12/17 23:49 NS 0.9% IV 1000 ml IV at 1 bolus Per protocol; 1000 mL bolus ordered. sb4 kj2
--- NOTE | 2023-12-18 23:54 | ER ---
Nurse's Notes [facility] Name: Geetha Khan Age: 48 yrs Sex: Female : 1975 Arrival Date: 12/18/2023 Time: 20:16 Bed 4 Private MD: Diagnosis: Acute kidney failure, unspecified;Dehydration;Transaminitis;Hypotension, unspecified Presentation: 12/17 20:48 Chief complaint: EMS states: nausea and vomiting x2 days. Feels dizzy and lightheaded. tm6 Coronavirus screen: Vaccine status: Patient reports receiving the 2nd dose of the covid vaccine. Ebola Screen: Patient negative for fever greater than or equal to 101.5 degrees Fahrenheit, and additional compatible Ebola Virus Disease symptoms Patient denies exposure to infectious person. Patient denies travel to an Ebola-affected area in the 21 days before illness onset. No symptoms or risks identified at this time. Initial Sepsis Screen: Does the patient meet any 2 criteria? Systolic BP < 90 mmHg. Does the patient have a suspected source of infection? No. Patient's initial sepsis screen is negative. Risk Assessment: Do you want to hurt yourself or someone else? Patient reports no desire to harm self or others. Onset of symptoms was December 16, 2023. 20:48 Method Of Arrival: EMS: [facility] tm6 20:48 Acuity: CORRINA 3 tm6 Historical: - Allergies: 20:50 Aspirin; tm6 20:50 CRANBERRY; tm6 20:50 FISH PRODUCT DERIVATIVES; tm6 20:50 GRAPEFRUIT; tm6 20:50 SHELLFISH; tm6 - PMHx: 20:50 Cerebrovascular accident; Chronic obstructive lung disease; Chronic obstructive lung tm6 disease; Hypertensive disorder; Myocardial infarction; Seizure; - PSHx: 20:50 None; tm6 - Immunization history:: Client reports receiving the 2nd dose of the Covid vaccine. - Infectious Disease History:: Denies. - Social history:: Smoking status: unknown. Screenin:22 [facility] ED Fall Risk Assessment (Adult) History of falling in the last 3 months, kj2 including since admission No falls in past 3 months (0 pts) Confusion or Disorientation No (0 pts) Intoxicated or Sedated No (0 pts) Impaired Gait Yes (1 pt) Mobility Assist Device Used Yes (1 pt) Altered Elimination No (0 pt) Score/Fall Risk Level 0 - 2 = Low Risk Maintained a safe environment, Educated pt \T\ family on fall prevention, incl call for assistance when getting out of bed, Hourly rounding (assess needs \T\ fall precautionary measures) done. Abuse screen: Denies threats or abuse. Denies injuries from another. Nutritional screening: No deficits noted. Tuberculosis screening: No symptoms or risk factors identified. Assessment: 20:50 General: Appears in no apparent distress. Behavior is calm, cooperative. Pain: kj2 Complains of pain in ABDOMINAL PAIN Pain began 3 hours ago. Pain: Pain currently is 8 out of 10 on a pain scale. Neuro: Level of Consciousness is awake, alert, obeys commands, Oriented to person, place, situation. Cardiovascular: Patient's skin is warm and dry. Respiratory: Airway is patent Respiratory effort is even, unlabored. 22:13 Reassessment: Patient appears in no apparent distress at this time. Patient and/or kj2 family updated on plan of care and expected duration. Pain level reassessed. Patient is alert, oriented x 3, equal unlabored respirations, skin warm/dry/pink. 23:11 Reassessment: Patient appears in no apparent distress at this time. Patient and/or kj2 family updated on plan of care and expected duration. Pain level reassessed. Patient is alert, oriented x 3, equal unlabored respirations, skin warm/dry/pink. 23:16 Pain: Pain does not radiate. kj2 12/18 00:08 Reassessment: Patient appears in no apparent distress at this time. Patient and/or kj2 family updated on plan of care and expected duration. Pain level reassessed. Patient is alert, oriented x 3, equal unlabored respirations, skin warm/dry/pink. Vital Signs: 12/17 20:48 BP 72 / 44; Pulse 79; Resp 16; Temp 98.1(TE); Pulse Ox 100% on R/A; MAP 54 mmHg; tm6 20:50 BP 77 / 51; Pulse 79; Resp 18; Pulse Ox 74% ; kj2 22:14 BP 85 / 60; Pulse 73; Resp 16; Pulse Ox 100% on R/A; kj2 23:11 BP 107 / 88; Pulse 79; Resp 18; Pulse Ox 100% on R/A; kj2 12/18 00:08 BP 90 / 71; Pulse 78; Resp 18; Temp 98; Pulse Ox 100% on R/A; kj2 ED Course: 12/17 20:17 Patient arrived in ED. mr 20:20 Kalli Bradshaw [facility]C [facility] sb4 20:20 Hoa Eddy MD is Attending Physician. sb4 20:50 Triage completed. tm6 20:51 Arm band placed on right wrist. tm6 21:00 Hortencia Maldonado, RN is Primary Nurse. kj2 21:21 No provider procedures requiring assistance completed. Missed attempt(s): 20 gauge in kj2 right antecubital area. 21:22 Patient has correct armband on for positive identification. Bed in low position. Call kj2 light in reach. Provided Education on: CALL LIGHT, FALL PRECAUTIONS. Client placed on continuous cardiac and pulse oximetry monitoring. NIBP monitoring applied. 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 21:26 Initial lab(s) drawn, by me, sent to lab. Inserted saline lock: 22 gauge in left cp4 antecubital area, using aseptic technique. Blood collected. Flushed with 10 mL NS. 22:47 CT Abd/Pelvis - Without Contrast In Process Unspecified. EDMS 12/18 00:09 IV discontinued, intact, bleeding controlled, No redness/swelling at site. Pressure kj2 dressing applied. Administered Medications: 12/17 21:36 Drug: midodrine 10 mg PO once Route: PO; kj2 12/18 00:11 Follow up: Response: No adverse reaction kj2 12/17 21:37 Drug: NS 0.9% IV 1000 ml IV at 1 bolus Per protocol; 1000 mL bolus Route: IV; Rate: 1 kj2 bolus; Site: left antecubital; 12/18 00:11 Follow up: Response: No adverse reaction; IV Status: Completed infusion; IV Intake: kj2 1000ml 12/17 21:37 Drug: Ondansetron IVP 4 mg IVP once; over 2 minutes Route: IVP; Site: left antecubital; kj2 12/18 00:11 Follow up: Response: No adverse reaction kj2 00:08 CANCELLED (Patient Refused): ns 0.9% 1000 ml IV at 1 bolus Per protocol; 1000 mL bolus kj2 Medication: 12/17 21:22 VIS not applicable for this client. kj2 Intake: 12/18 00:11 IV: 1000ml; Total: 1000ml. kj2 Outcome: 12/17 23:54 Discharge ordered by MD. mattson 12/18 00:09 AMA AMA form signed kj2 Condition: unchanged Discharge instructions given to patient, Instructed on follow up and referral plans. Demonstrated understanding of instructions, follow-up care, 00:18 Patient left the ED. kj2 Signatures: Dispatcher [employer] EDWY Clair Marina, Reg Reg mr Kalli Bradshaw, PA-C PAGiseleC sb4 Yasmeen Vasquez cp4 Greg Allen, RN RN tm6 Hortencia Maldonado, YANETH RN kj2
--- NOTE | 2023-12-19 00:50 | RAD REPORT ---
CT ABDOMEN PELVIS WITHOUT IV CONTRAST CLINICAL INDICATION: Abdominal pain COMPARISON: None TECHNIQUE: CT images of the abdomen and pelvis obtained without contrast. Multiplanar reformats were provided. Dose-optimization techniques such as automated exposure control, iterative reconstruction, and mA and/or kV adjustment for patient size was utilized for this examination. FINDINGS: LOWER CHEST: Unremarkable. LIVER: Unremarkable. BILIARY: Status post cholecystectomy with surgical clips at gallbladder fossa. No intra- or extrahepa tic biliary ductal dilatation. PANCREAS: Unremarkable. SPLEEN: Unremarkable. ADRENALS: Unremarkable. KIDNEYS/URETERS: No nephrolithiasis or obstructive uropathy. BOWEL/STOMACH: Unremarkable. APPENDIX: Normal. MESENTERY/PERITONEUM: Unremarkable. RETROPERITONEUM: No adenopathy. URINARY BLADDER: Unremarkable. REPRODUCTIVE: Unremarkable. VASCULAR: No aortic aneurysm. ABDOMINAL/PELVIC WALL: Unremarkable. BONES: No acute findings. No compression deformity, nor osteolytic or sclerotic lesion. IMPRESSION: Unremarkable CT abdomen and pelvis. Electronically signed by: Ruth Escalona MD 12/18/2023 11:46 PM CDT Due to temporary technical issues with the PACS/Voddler reporting system, reports are being edwin d by the in-house radiologist without review as a courtesy to ensure prompt reporting the interpreting radiologist is fully responsible for the content of the report. Transcribed Date/Time: 12/19/2023 12:50 AM
[2023-12-19 16:58] VITALS: O2SAT 100
[2023-12-19 17:01] VITALS: BP 90/71; TEMP 98
--- NOTE | 2023-12-20 16:39 | EKG ---
Test Date: 2023-12-18 Test Time: 21:10:58 Animal Stunner: JOE MEASUREMENT RESULTS: Intervals: Rate: 73 VT: 202 QRSD: 110 QT: 416 QTc: 458 [place]: P: 55 VT: 202 QRS: 47 T: 191 INTERPRETIVE STATEMENTS: Sinus rhythm with occasional premature ventricular complexes Incomplete left bundle branch block Left ventricular hypertrophy with repolarization abnormality Abnormal ECG Compared to ECG 12/06/2023 15:19:24 Ventricular premature complex(es) now present Left bundle-branch block now present Electronically Signed On 12-20-23 16:33:54 CDT by Josse Olson
== END 2023-12-19 00:18 | disposition home or self-care (01) ==
LOC: ER 20:16
DX: N17.9 Acute kidney failure, unspecified (principal); E86.0 Dehydration; I95.9 Hypotension, unspecified; R74.01 Elevation of levels of liver transaminase levels; I10 Essential (primary) hypertension; I25.2 Old myocardial infarction; Z86.73 Personal history of transient ischemic attack (TIA), and cerebral infarction without residual deficits
CPT/HCPCS: 96361; 93005; 85025; 36415; 83690; 80053; 74176; 96374; 99285; J2405; J7030

== ENCOUNTER 2023-12-26 16:15 | Inpatient (IN) | payer OTHER ==
[2023-12-26] MEDS ORDERED: NA CHLORIDE 0.9% 1,000 ML ONE ×2 (16:50→18:49)
--- NOTE | 2023-12-26 17:44 | RAD REPORT ---
EXAMINATION: ONE VIEW CHEST XR CLINICAL INDICATION: Female, 48 years old.vomiting TECHNIQUE: 1 View, AP supine, X-ray of the chest was performed. [id number]. COMPARISON: 11/29/2023 FINDINGS: Lungs and pleura: Clear lungs. No effusion. Heart and mediastinum: Normal heart size. Unremarkable mediastinal contours. Osseous structures: No acute abnormality. Probably remote left-sided rib fractures which are similar. Tubes/lines: None Other: None. IMPRESSION: No acute intrathoracic abnormality.
[2023-12-26 17:57] LABS: PT Prothrombin Time 10.6 SECONDS (9.4-12.5); Protime INR 0.94
[2023-12-26 17:58] LABS: Absolute Eosinophils 0.1 K/uL (0-0.5); Absolute Lymphocytes (CBC) 1.7 K/uL (0.7-4.9); Absolute Monocytes 0.4 K/uL (0.1-1.3); Basophils % 0.8 % (0-1.3); Eosinophils % 1.8 % (0-4.4); Hematocrit 38.3 % (36.0-45.0); Hemoglobin 12.8 g/dL (12.0-15.0); Lymphocytes % 33.2 % (15.3-44.8); MCH 35.2 pg (27.0-35.0); MCHC 33.5 g/dL (32.0-36.0); MCV 105.3 fL (80-100); MPV 8.3 fL (7.6-11.3); Neutrophils % 56.2 % (41.7-73.7); Platelets 160 thou/uL (152-406); RBC Red Blood Cell Count 3.64 M/uL (3.86-4.86); Red Cell Distribution Width 13.6 % (12.1-15.2)
[2023-12-26] MEDS ORDERED: METOCLOPRAMIDE 10 MG/2mL INJ ONE (18:07)
[2023-12-26 18:14] LABS: ALT/SGPT 181 U/L (13-56); AST/SGOT 91 U/L (15-37); Albumin 3.4 g/dL (3.4-5.0); Albumin/Globulin Ratio 1.2 (1.1-1.8); Alkaline Phosphatase 543 U/L (45-117); Anion Gap 14.7 mEq/L (5.0-15.0); BUN Blood Urea Nitrogen 80 mg/dL (7-18); Bicarbonate 12 mEq/L (21-32); Bilirubin Total 0.3 mg/dL (0.2-1.0); Globulin 2.8 g/dL (2.3-3.5); Glomerular Filtration Rate 17 ml/min (=/>90); Glucose Level 100 mg/dL (74-106); Lipase 184 U/L (13-75); Magnesium 1.8 mg/dL (1.6-2.4); Potassium 4.7 mEq/L (3.5-5.1); Protein, Total 6.2 g/dL (6.4-8.2); Sodium Level 131 mEq/L (136-145)
[2023-12-26 18:15] LABS: Bilirubin Direct < 0.2 mg/dL (0-0.2); Bilirubin Indirect, Calculated 0.1 mg/dL (0.2-0.8)
[2023-12-26 18:16] LABS: Troponin High Sensitivity 162.6 pg/mL (<58.9)
--- NOTE | 2023-12-26 19:29 | RAD REPORT ---
Stone Protocol CLINICAL INDICATION: Female, 48 years old.acute kidney failure TECHNIQUE: CT abdomen and pelvis was performed, without IV contrast, as per department protocol using a CT stone protocol. Axial, sagittal and coronal reconstructions were obtained. One or more of the following dose reduction techniques were used: Automated exposure control, adjustment of the mA and/o r kV according to the patient size, and/or iterative reconstruction. Unless otherwise specified, incidental findings do not require dedicated imaging follow-up. [id number]. IV CONTRAST: Not administered. COMPARISON: 12/18/2023 FINDINGS: The lack of intravenous contrast limits the sensitivity of this exam for evaluation of solid visceral organs, vascular structures, and retroperitoneum. LOWER CHEST: The visualized lung bases are clear. Mild circumferential thickening distal esophagus co uld reflect mild esophagitis. LIVER: Normal in size and contour. No focal lesion. GALLBLADDER/BILE DUCTS: Cholecystectomy? PANCREAS: No mass, ductal dilation, or michael-pancreatic fluid. SPLEEN: Normal size. No focal lesion. ADRENALS: Normal; no mass. KIDNEYS AND URETERS: Right renal scarring and atrophy. URINARY BLADDER: Normal contour. GASTROINTESTINAL TRACT: Stomach is non-dilated. Small bowel has normal course and caliber. No colonic wall thickening or pericolonic inflammatory changes. Normal appendix. PERITONEUM: No free fluid. ABDOMINAL AORTA AND OTHER VESSELS: Normal caliber aorta and IVC. REPRODUCTIVE ORGANS: No pathologic process. MUSCULOSKELETAL: No acute or suspicious osseous abnormality. Remote left-sided rib fractures. ADDITIONAL FINDINGS: None. IMPRESSION: No acute or significant abnormalities in the abdomen or pelvis, with evaluation limited by lack of IV contrast. No urinary tract calculi identified.
--- NOTE | 2023-12-26 19:31 | RAD REPORT ---
EXAMINATION: CT HEAD WITHOUT CONTRAST CLINICAL INDICATION: Female, 48 years old.DIZZINESS TECHNIQUE: Axial CT images from the skull base to the vertex without intravenous contrast. Coronal an d sagittal reformatted images were created from the data set. One or more of the following dose reduction techniques were used: Automated exposure control, adjustment of the mA and/or kV according to patient size, and/or iterative reconstruction. Unless otherwise specified, incidental findings do not require dedicated imaging follow-up. [id number]. COMPARISON: 11/12/2023 FINDINGS: INTRACRANIAL: Remote right subinsular, right basal ganglia, and right bernal radiata infarct. Mild ch ronic small vessel ischemic changes. No hydrocephalus. No mass effect or midline shift. No significant white matter disease. VASCULATURE: No visualized abnormalities in the arteries or dural venous sinuses. SCALP/SKULL: No significant soft tissue or osseous abnormalities. SINUSES: The visualized paranasal sinuses and mastoid air cells are predominantly clear. IMPRESSION: No acute intracranial abnormality. Unchanged remote right-sided infarcts.
--- NOTE | 2023-12-26 20:41 | EDPHYS ---
Physician Documentation [facility] Name: Geetha Khan Age: 48 yrs Sex: Female : 1975 Arrival Date: 12/26/2023 Time: 16:15 Bed 4 Private MD: ED Physician Gene Medrano HPI: 12/25 16:45 This 48 yrs old Female presents to ER via Wheelchair with complaints of Low BP, cp Dizziness, Vomiting/Diarrhea. 16:45 The patient presents to the emergency department with nausea, that is moderate, cp vomiting, that is intermittent. Onset: The symptoms/episode began/occurred 2 week(s) ago. 16:45 Associated signs and symptoms: Pertinent positives: dizziness, Pertinent negatives: cp abdominal pain, diarrhea, fever, GI bleeding, chest pain. 16:45 Severity of symptoms: in the emergency department the symptoms are unchanged despite cp home interventions. Patient reports being referred to ED for low blood pressure, dizziness. Historical: - Allergies: 17:01 Aspirin; ph 17:01 CRANBERRY; ph 17:01 FISH PRODUCT DERIVATIVES; ph 17:01 GRAPEFRUIT; ph 17:01 SHELLFISH; ph 16:44 Aspirin; ph 16:44 CRANBERRY; ph 16:44 FISH PRODUCT DERIVATIVES; ph 16:44 GRAPEFRUIT; ph 16:44 SHELLFISH; ph - PMHx: 17:01 Cerebrovascular accident; Chronic obstructive lung disease; Hypertensive disorder; ph Myocardial infarction; Seizure; 16:44 Cerebrovascular accident; Chronic obstructive lung disease; Hypertensive disorder; ph Myocardial infarction; Seizure; - Immunization history:: Adult Immunizations unknown. - Infectious Disease History:: Denies. - Social history:: Smoking status: unknown. ROS: 16:50 Constitutional: Positive for poor PO intake, Negative for body aches, chills, fever, cp 16:50 Eyes: Negative for injury, pain, redness, and discharge, cp 16:50 ENT: Negative for drainage from ear(s), ear pain, sore throat, difficulty swallowing, difficulty handling secretions, 16:50 Cardiovascular: Negative for chest pain, 16:50 Respiratory: Negative for cough, shortness of breath, wheezing, 16:50 Abdomen/GI: Positive for nausea and vomiting, anorexia, Negative for abdominal pain, diarrhea, constipation, black/tarry stool, rectal bleeding, 16:50 : Negative for hematuria, flank pain, burning with urination, 16:50 Neuro: Positive for dizziness, weakness, Negative for altered mental status, loss of consciousness, syncope, 16:50 All other systems are negative, Exam: 16:55 Constitutional: The patient appears in no acute distress, alert, awake, cp non-diaphoretic, non-toxic, well developed, well nourished, 16:55 Head/Face: Normocephalic, atraumatic. cp 16:55 Eyes: Periorbital structures: appear normal, Pupils: equal, round, and reactive to light and accomodation, Extraocular movements: intact throughout, Conjunctiva: normal, no exudate, no injection, Sclera: no appreciated abnormality, Lids and lashes: appear normal, bilaterally, 16:55 ENT: External ear(s): are unremarkable, Nose: is normal, Mouth: Lips: dry, Oral mucosa: dry, Posterior pharynx: Airway: no evidence of obstruction, patent, erythema, is not appreciated, exudate, is not appreciated, 16:55 Neck: ROM/movement: is normal, is supple, without pain, no range of motions limitations, no meningismus, no nuchal rigidity, 16:55 Chest/axilla: Inspection: normal, Palpation: is normal, no crepitus, no tenderness, 16:55 Cardiovascular: Rate: normal, Rhythm: regular, Edema: is not appreciated, JVD: is not appreciated, 16:55 Respiratory: the patient does not display signs of respiratory distress, Respirations: normal, no use of accessory muscles, no retractions, labored breathing, is not present, Breath sounds: are clear throughout, no decreased breath sounds, no stridor, no wheezing, 16:55 Abdomen/GI: Inspection: abdomen appears normal, Bowel sounds: active, all quadrants, Palpation: abdomen is soft and non-tender, in all quadrants, 16:55 Back: pain, is absent, ROM is normal, 16:55 Skin: cellulitis, is not appreciated, no rash present. 16:55 Neuro: Orientation: to person, place \T\ time. Mentation: is normal, Motor: no acute changes, Sensation: no acute changes, 17:15 ECG was reviewed by the Attending Physician. cp Vital Signs: 16:22 Pulse 83; Resp 15; Temp 96.9(T); Pulse Ox 96% ; ko1 16:44 BP 68 / 48; ph 17:14 BP 79 / 57; Pulse 69; Resp 16; Pulse Ox 97% on R/A; ph 17:48 BP 78 / 59; Pulse 65; Resp 15; Pulse Ox 100% on R/A; MAP 67 mmHg; tm6 18:09 BP 91 / 62; Pulse 70; Resp 14; Pulse Ox 100% ; MAP 73 mmHg; tm6 18:57 BP 87 / 56; Pulse 69; MAP 68 mmHg; tm6 19:25 BP 80 / 67; Pulse 88; Resp 18; Temp 95.7(TE); Pulse Ox 100% on R/A; mt4 19:56 BP 99 / 69; Pulse 73; Resp 16 S; Pulse Ox 100% on R/A; mt4 22:24 BP 93 / 57; Pulse 67; Resp 17; mt4 22:50 BP 95 / 61; Pulse 67; Resp 22; Temp 97.7(O); Pulse Ox 100% on R/A; Pain 0/10; mt4 22:50 Pain Scale: Adult mt4 Procedures: 22:06 Central Line: the site was prepped with Betadine, in sterile fashion, a triple lumen cp catheter was inserted, in the right femoral vein, in 1 attempts. placement was verified, by blood return, the site was dressed with using sterile technique, the patient tolerated the procedure, well. MDM: 16:29 Patient medically screened. juan diego 17:00 Differential diagnosis: gastritis, viral gastroenteritis, gastroenteritis, kidney cp failure, electrolyte abnormality, uti, sepsis, dehydration. 20:35 Data reviewed: vital signs, nurses notes, lab test result(s), radiologic studies, CT cp scan, plain films, and as a result, I will admit patient. 20:35 Management of patient was discussed with the following: Hospitalist: DR Steele will cp admit after discussion to ICU. I considered the following discharge prescriptions or medication management in the emergency department Medications were administered in the Emergency Department. See MAR. Post IV fluid administration reassessment for Sepsis: Client not prescribed the 30 mL/kg IVF due to: Amount of IVF prescribed: 1999 HX CHF Current vital signs reviewed: systolic pressure 98. Counseling: I had a detailed discussion with the patient and/or guardian regarding the historical points, exam findings, and any diagnostic results supporting the discharge/admit diagnosis, lab results, radiology results, the need for further work-up and treatment in the hospital. 12/25 16:43 Order name: Basic Metabolic Panel; Complete Time: 18:16 cp 12/25 18:20 Interpretation: Normal except: NA 131; CL 109; CO2 12; BUN 80; CRE 3.31; GFR 17. cp 12/25 16:43 Order name: CBC with Diff; Complete Time: 22:01 cp 12/25 19:51 Interpretation: Normal except: RBC 3.64; MCV 105.3; MCH 35.2. cp 12/25 16:43 Order name: LFT's; Complete Time: 18:16 cp 12/25 19:50 Interpretation: Normal except: AST 91; ALT 181; ALK 543; IBILI, CALC 0.1; TP 6.2. cp 12/25 16:43 Order name: Magnesium; Complete Time: 18:16 cp 12/25 16:43 Order name: PT-INR; Complete Time: 18:16 cp 12/25 16:43 Order name: Troponin HS; Complete Time: 18:16 cp 12/25 16:43 Order name: Lipase; Complete Time: 18:16 cp 12/25 19:36 Order name: Urinalysis w/ reflexes; Complete Time: 22:01 cp 12/25 22:01 Interpretation: Normal except: [facility] Extremely Turbid; UBLD 1+; UPROT 1+; UNIT 2+; UESTR cp 500; UWBC >50; URBC 21-50; UBACT 20-50. 12/25 19:57 Order name: Lactate w/ 2H reflex if indic. cp 12/25 19:57 Order name: Blood Culture Adult (2) cp 12/25 21:08 Order name: Liver (Hepatic) Function EDMS 12/25 21:08 Order name: Magnesium EDMS 12/25 21:08 Order name: Phosphorus EDMS 12/25 21:08 Order name: T4 Free EDMS 12/25 21:08 Order name: Thyroid Stimulating Hormone EDMS 12/25 21:08 Order name: Basic Metabolic Panel EDMS 12/25 21:08 Order name: Basic Metabolic Panel EDMS 12/25 21:08 Order name: CBC with Automated Diff EDMS 12/25 21:08 Order name: CBC with Automated Diff EDMS 12/25 21:29 Order name: CBC Smear Scan; Complete Time: 22:01 EDMS 12/25 21:32 Order name: Urine Culture EDAK 12/25 22:30 Order name: Troponin High Sensitivity EDAK 12/25 16:43 Order name: XRAY Chest (1 view); Complete Time: 17:50 cp 12/25 18:22 Order name: CT Head Brain wo Cont; Complete Time: 19:34 cp 12/25 18:22 Order name: CT Stone Protocol; Complete Time: 19:34 cp 12/25 19:35 Interpretation: Report reviewed. 12/25 21:18 Order name: Echo with Doppler EDAK 12/25 22:14 Order name: Liver Only EDAK 12/25 21:08 Order name: CONS Physician Consult [facility] 12/25 16:43 Order name: Blood Pressure Recheck; Complete Time: 16:44 cp 12/25 16:43 Order name: Cardiac monitoring; Complete Time: 17:14 cp 12/25 16:43 Order name: EKG - Nurse/Tech; Complete Time: 17:14 cp 12/25 16:43 Order name: IV Saline Lock; Complete Time: 17:14 cp 12/25 16:43 Order name: Labs collected and sent; Complete Time: 17:14 cp 12/25 16:43 Order name: O2 Per Protocol; Complete Time: 17:14 cp 12/25 16:43 Order name: O2 Sat Monitoring; Complete Time: 17:14 12/25 16:58 Order name: Labs - recollect needed: all tubes; Complete Time: 17:48 bc6 12/25 18:22 Order name: Misc. Order; Complete Time: 18:56 cp EC:15 Rate is 67 beats/min. Rhythm is regular. [place] interval is normal. QRS interval is cp prolonged at 108 msec. QT interval is normal. T waves are Inverted in leads I, II, aVL, aVF, V2, V5, V6. Interpreted by me. Reviewed by me. Administered Medications: 17:13 Drug: NS 0.9% IV 1000 ml IV at 1000 ml once; to be given as a bolus over 60 minutes ph Route: IV; Rate: 1000 ml; Site: right hand; 18:09 Follow up: Response: No adverse reaction; IV Status: Completed infusion; IV Intake: tm6 1000ml 18:21 Follow up: Response: No adverse reaction; IV Status: Completed infusion; IV Intake: ph 1000ml 18:08 Drug: metoCLOPramide IVP 10 mg IVP once; over 1 to 2 minutes Route: IVP; Site: right tm6 hand; 18:21 Follow up: Response: No adverse reaction ph 18:56 Drug: NS 0.9% IV 1000 ml IV at 100 ml/hr once Route: IV; Rate: 100 ml/hr; Site: right tm6 antecubital; 22:23 Follow up: IV Status: Infusion continued mt4 22:23 Follow up: Response: No adverse reaction mt4 23:10 Follow up: Response: No adverse reaction; IV Status: Infusion continued upon admission ha1 22:22 Drug: Clopidogrel PO 75 mg PO once Route: PO; mt4 23:09 Follow up: Response: No adverse reaction ha1 22:22 Drug: Rocephin IV 1 grams IV at calculated rate once; Given slow IV push per pharmacy mt4 instructions Route: IV; Rate: calculated rate; Site: right hand; 23:09 Follow up: Response: No adverse reaction; IV Status: Completed infusion; IV Intake: [id number] Disposition Summary: 12/26/23 20:40 Hospitalization Ordered Notes: Hospitalization Status: Inpatient Admission cp Provider: Prince chelly Steele Location: Intensive Care Unit cp Condition: Stable cp Problem: new cp Symptoms: have improved cp Bed/Room Type: Standard cp Room Assignment: 2-(12/26/23 22:19) vk Diagnosis - Acute kidney failure, unspecified cp - Subsequent non-ST elevation (NSTEMI) myocardial infarction cp - Volume depletion, unspecified cp - UTI/ Urinary tract infection, site not specified cp Forms: - Medication Reconciliation Form cp - SBAR form cp - Leadership Thank You Letter cp Critical care time excluding procedures: 22:06 Critical care time: Bedside Care: 7 minutes, Consultation: 25 minutes, Family cp Intervention: 5 minutes. Total time: 37 minutes Addendum: 12/30/2023 09:41 Co-signature as Attending Physician, Gene Medrano MD I reviewed the patient's care r n provided by the Advanced Practice Provider and agree with the diagnosis and treatment plan. Signatures: Dispatcher [employer] Michael Meyer MD MD cha Nieto, Roman, MD MD rn Hall, Patricia, RN RN ph Michael Nguyen PA PA Grisel Delvalle Greg Gerber RN RN 6 Chata Gibbons Molinec, RN RN mt4 Aydee Ulrich RN ha1 Corrections: (The following items were deleted from the chart) 12/25 16:44 16:44 BASIC METABOLIC PANEL+C.LAB.BRZ ordered. EDMS EDMS 16:44 16:44 CBC+H.LAB.BRZ ordered. EDMS EDMS 16:44 16:44 HEPATIC FUNCTION+C.LAB.BRZ ordered. EDMS EDMS 16:44 16:44 MAGNESIUM+C.LAB.BRZ ordered. EDMS EDMS 16:44 16:44 PROTIME (+INR)+COAG.LAB.BRZ ordered. EDMS EDMS 16:44 16:44 Troponin High Sensitivity+C.LAB.BRZ ordered. EDMS EDMS 16:44 16:44 LIPASE+C.LAB.BRZ ordered. EDMS EDMS 16:44 16:44 Chest Single View+RAD.RAD.BRZ ordered. EDMS EDMS 22:19 20:40 cp vk
--- NOTE | 2023-12-26 20:41 | ER ---
Nurse's Notes [facility] Name: Geetha Khan Age: 48 yrs Sex: Female : 1975 Arrival Date: 12/26/2023 Time: 16:15 Bed 4 Private MD: Diagnosis: Acute kidney failure, unspecified;Subsequent non-ST elevation (NSTEMI) myocardial infarction;Volume depletion, unspecified;UTI/ Urinary tract infection, site not specified Presentation: 12/25 16:22 Chief complaint: Patient states: sent from Dr office for low bp. Coronavirus screen: At ko1 this time, the client does not indicate any symptoms associated with coronavirus-19. Ebola Screen: No symptoms or risks identified at this time. Risk Assessment: Do you want to hurt yourself or someone else? Patient reports no desire to harm self or others. Onset of symptoms was December 26, 2023. 16:22 Method Of Arrival: Wheelchair ko1 16:22 Acuity: CORRINA 2 ko1 16:44 Initial Sepsis Screen: Does the patient meet any 2 criteria? Yes Does the patient have ph a suspected source of infection? No. Patient's initial sepsis screen is negative. Historical: - Allergies: 17:01 Aspirin; ph 17:01 CRANBERRY; ph 17:01 FISH PRODUCT DERIVATIVES; ph 17:01 GRAPEFRUIT; ph 17:01 SHELLFISH; ph 16:44 Aspirin; ph 16:44 CRANBERRY; ph 16:44 FISH PRODUCT DERIVATIVES; ph 16:44 GRAPEFRUIT; ph 16:44 SHELLFISH; ph - PMHx: 17:01 Cerebrovascular accident; Chronic obstructive lung disease; Hypertensive disorder; ph Myocardial infarction; Seizure; 16:44 Cerebrovascular accident; Chronic obstructive lung disease; Hypertensive disorder; ph Myocardial infarction; Seizure; - Immunization history:: Adult Immunizations unknown. - Infectious Disease History:: Denies. - Social history:: Smoking status: unknown. Screenin:02 [facility] ED Fall Risk Assessment (Adult) History of falling in the last 3 months, ph including since admission Yes- fall prone (multiple falls) (3 pts) Confusion or Disorientation No (0 pts) Intoxicated or Sedated No (0 pts) Impaired Gait Yes (1 pt) Mobility Assist Device Used Yes (1 pt) Altered Elimination Yes (1 pt) Score/Fall Risk Level 3 or more points = High Risk Oriented to surroundings, Maintained a safe environment, Used ambulatory aids as needed (educated on \T\ assisted with). Abuse screen: Denies threats or abuse. Denies injuries from another. Nutritional screening: No deficits noted. Tuberculosis screening: No symptoms or risk factors identified. Assessment: 17:14 General: Appears in no apparent distress. Behavior is calm, cooperative. Pain: Denies ph pain. Neuro: Level of Consciousness is awake, alert, obeys commands, Oriented to person, place, time, situation, Reports dizziness. Cardiovascular: Capillary refill < 3 seconds in bilateral fingers Patient's skin is warm and dry. Respiratory: Airway is patent Respiratory effort is even, unlabored. GI: Abdomen is non-distended, Reports diarrhea, nausea, vomiting. Derm: Skin is pink, warm \T\ dry. 18:57 Reassessment: purewick placed for I/O monitoring. tm6 18:57 Reassessment: Patient and/or family updated on plan of care and expected duration. Pain tm6 level reassessed. Patient is alert, oriented x 3, equal unlabored respirations, skin warm/dry/pink. 19:00 Reassessment: ASSUMED CARE OF PT. PT BEING TAKEN TO CT WITH CT TECHS. ph 19:30 Reassessment: Patient and/or family updated on plan of care and expected duration. Pain mt4 level reassessed. Patient is alert, oriented x 3, equal unlabored respirations, skin warm/dry/pink. General: Appears in no apparent distress. comfortable, unkempt, Behavior is calm, cooperative. Pain: Denies pain. Neuro: Level of Consciousness is awake, alert, obeys commands, Oriented to person, place, time, situation, Documentation Consultant are unable to move left upper extremity . Weakness in left Gait is unsteady, Speech is normal, Reports. Vital Signs: 16:22 Pulse 83; Resp 15; Temp 96.9(T); Pulse Ox 96% ; ko1 16:44 BP 68 / 48; ph 17:14 BP 79 / 57; Pulse 69; Resp 16; Pulse Ox 97% on R/A; ph 17:48 BP 78 / 59; Pulse 65; Resp 15; Pulse Ox 100% on R/A; MAP 67 mmHg; tm6 18:09 BP 91 / 62; Pulse 70; Resp 14; Pulse Ox 100% ; MAP 73 mmHg; tm6 18:57 BP 87 / 56; Pulse 69; MAP 68 mmHg; tm6 19:25 BP 80 / 67; Pulse 88; Resp 18; Temp 95.7(TE); Pulse Ox 100% on R/A; mt4 19:56 BP 99 / 69; Pulse 73; Resp 16 S; Pulse Ox 100% on R/A; mt4 22:24 BP 93 / 57; Pulse 67; Resp 17; mt4 22:50 BP 95 / 61; Pulse 67; Resp 22; Temp 97.7(O); Pulse Ox 100% on R/A; Pain 0/10; mt4 22:50 Pain Scale: Adult mt4 ED Course: 16:17 Patient arrived in ED. mr 16:17 Michael Nguyen PA is PHCP. cp 16:17 Gene Medrano MD is Attending Physician. cp 16:27 Triage completed. ko1 16:35 Greg Allen, RN is Primary Nurse. tm6 17:02 Initial lab(s) drawn, by ct, sent to lab. Missed attempt(s): 22 gauge in right ph antecubital area. Bleeding controlled, band aid applied, catheter tip intact. Missed attempt(s): 22 gauge in left antecubital area. Bleeding controlled, band aid applied, catheter tip intact. Inserted saline lock: 22 gauge in right hand, using aseptic technique. Blood collected. Flushed with 10 mL NS. 17:03 Arm band placed on. ph 17:03 Patient has correct armband on for positive identification. Placed in gown. Bed in low ph position. Call light in reach. Side rails up X2. Client placed on continuous cardiac and pulse oximetry monitoring. NIBP monitoring applied. engine monitor on. Door closed. Noise minimized. Warm blanket given. 17:14 EKG done, by ED staff, reviewed by Gene Medrano MD. ph 17:37 XRAY Chest (1 view) In Process Unspecified. EDMS 19:18 CT Head Brain wo Cont In Process Unspecified. EDMS 19:18 CT Stone Protocol In Process Unspecified. EDMS 20:39 Prince Steele MD is Hospitalizing Provider. cp 22:09 Assisted provider with central line placement. Set up central line tray. Triple lumen mt4 line placed in right femoral. Line placed by Michael Page PA Placement verified by blood return, Blood was collected. Patient tolerated well. Before procedure, did Practitioner(s) obtain informed consent? Yes. Patient \T\ family education about procedure, CLABSI prevention and S/S of infection? Yes. Time-out/Briefing performed prior to start of procedure? Yes. Was handwashing/sanitizing done immediately prior to procedure? Yes. Was patient positioned to in a way to prevent air embolism? Yes. Was procedure site sterilized? Yes, with chlorhexidine. Was the site allowed to dry? Yes. Was local anesthetic and/or sedation utilized? Yes. During the procedure, did the Practitioner(s) maintain a sterile field? Were unused ports clamped during insertion? Yes. Was blood aspirated from each lumen? Yes. 22:25 Monster Holm RN is Primary Nurse. mt4 23:08 Patient admitted, IV remains in place. 1 23:09 Provided Education on: NEED FOR ADMIT AND PLAN OF CARE . [facility] Administered Medications: 17:13 Drug: NS 0.9% IV 1000 ml IV at 1000 ml once; to be given as a bolus over 60 minutes ph Route: IV; Rate: 1000 ml; Site: right hand; 18:09 Follow up: Response: No adverse reaction; IV Status: Completed infusion; IV Intake: tm6 1000ml 18:21 Follow up: Response: No adverse reaction; IV Status: Completed infusion; IV Intake: ph 1000ml 18:08 Drug: metoCLOPramide IVP 10 mg IVP once; over 1 to 2 minutes Route: IVP; Site: right tm6 hand; 18:21 Follow up: Response: No adverse reaction ph 18:56 Drug: NS 0.9% IV 1000 ml IV at 100 ml/hr once Route: IV; Rate: 100 ml/hr; Site: right tm6 antecubital; 22:23 Follow up: IV Status: Infusion continued mt4 22:23 Follow up: Response: No adverse reaction mt4 23:10 Follow up: Response: No adverse reaction; IV Status: Infusion continued upon admission [facility] 22:22 Drug: Clopidogrel PO 75 mg PO once Route: PO; mt4 23:09 Follow up: Response: No adverse reaction [facility] 22:22 Drug: Rocephin IV 1 grams IV at calculated rate once; Given slow IV push per pharmacy tn4 instructions Route: IV; Rate: calculated rate; Site: right hand; 23:09 Follow up: Response: No adverse reaction; IV Status: Completed infusion; IV Intake: [id number] Medication: 17:03 VIS not applicable for this client. ph Intake: 18:09 IV: 1000ml; Total: 1000ml. tm6 18:21 IV: 1000ml; Total: 2000ml. ph 23:09 IV: 50ml; Total: 2050ml. ha1 Outcome: 20:40 Decision to Hospitalize by Provider. cp 23:08 Admitted to ICU accompanied by nurse, via stretcher, room 2, on monitor, with chart, ha1 23:08 Condition: stable 23:08 Instructed on the need for admit, Demonstrated understanding of instructions, 23:10 Patient left the ED. ha1 Signatures: Dispatcher [employer] EDMS Clair Marina, Reg Reg mr Kelly Brown, RN RN Michael Conn PA PA cp Aydee Ulrich, RN RN 1 Toya Huerta, YANETH RN Greg Solares RN RN 6 Monster Holm, RN RN mt4
[2023-12-26] MEDS ORDERED: CLOPIDOGREL 75 MG TABLET ONE (20:50)
[2023-12-26] MEDS ORDERED: ONDANSETRON 4 MG/2 ML VIAL IV PRN (21:04)
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
[2023-12-26 21:27] LABS: Specific Gravity 1.017 (1.005-1.030); Sqamous Epithelial <5 /HPF (None Seen); Urine Bacteria 20-50 /HPF (<20); Urine Bilirubin NEGATIVE (Negative); Urine Blood 1+ (Negative); Urine Clarity Extremely Turbid (Clear); Urine Color Yellow (Yellow); Urine Culture Reflex Order REFLEXED; Urine Glucose NEGATIVE (Negative); Urine Ketones NEGATIVE (Negative); Urine Microscopic Reflex YN ORDER UMIC; Urine Mucus Slight /HPF (None Seen); Urine Nitrite 2+ (Negative); Urine Protein 1+ (Negative); Urine RBC 21-50 /HPF (None Seen); Urine Urobilinogen Normal (Normal); Urine WBC >50 /HPF (<5); Urine pH 5.5 (5.0-7.0)
[2023-12-26 21:29] LABS: Blood Morphology Comment NOTED (NOT SEEN); Macrocytosis 1+; Platelet Estimate ADEQ; White Blood Cell Scan OK (OK)
[2023-12-26] MEDS ORDERED: LIDOCAINE 2% W/EPI 1:200,000 MPF 20 ML VIAL IM ONE (21:38)
[2023-12-26] MEDS ORDERED: PIPER TAZO 3.375 GM in NA CHLORIDE 0.9% 100 ML IV SCH (22:09)
[2023-12-26] MEDS ORDERED: NA CHLORIDE 0.9% 50 ML ONE (22:15)
[2023-12-26] MEDS ORDERED: CEFTRIAXONE 1000 MG/VIAL ONE (22:15)
[2023-12-26] MEDS ORDERED: NOREPINEPHRINE 4 MG in D5W 250 ML IV SCH (23:45)
[2023-12-26] MEDS: FAMOTIDINE 20 MG/2 ML VIAL IV ONE (23:53)
[2023-12-26] MEDS: HEPARIN 5000 UNIT/ML 1 ML VIAL SQ SCH (23:53)
[2023-12-26] MEDS: PIPER TAZO 3.375 GM in NA CHLORIDE 0.9% 100 ML IV SCH (23:54)
[2023-12-26] MEDS: NOREPINEPHRINE BITARTRATE/D5W 4 MG/250 ML KIT IV ONE (23:54)
[2023-12-27 00:22] LABS: Magnesium 1.6 mg/dL (1.6-2.4); Phosphorus 4.6 mg/dL (2.5-4.9)
[2023-12-27 00:23] LABS: Thyroid Stimulating Hormone 5.97 uIU/mL (0.358-3.740)
[2023-12-27] MEDS: HYDROCORTISONE SUC 100 MG INJ IV SCH (01:21)
[2023-12-27 06:21] LABS: Absolute Lymphocytes (CBC) 0.4 K/uL (0.7-4.9); Absolute Monocytes 0.1 K/uL (0.1-1.3); Absolute Neutrophil 3.7 K/uL (1.8-8.0); Basophils % 0.8 % (0-1.3); Eosinophils % 0.1 % (0-4.4); Hematocrit 30.6 % (36.0-45.0); Hemoglobin 10.3 g/dL (12.0-15.0); Lymphocytes % 10.4 % (15.3-44.8); MCH 35.4 pg (27.0-35.0); MCHC 33.6 g/dL (32.0-36.0); MCV 105.2 fL (80-100); MPV 8.1 fL (7.6-11.3); Monocytes % 1.3 % (3.3-12.3); Neutrophils % 87.4 % (41.7-73.7); Platelets 133 thou/uL (152-406); RBC Red Blood Cell Count 2.91 M/uL (3.86-4.86); Red Cell Distribution Width 13.6 % (12.1-15.2)
--- NOTE | 2023-12-27 06:54 | P.PN ---
Date of Service: 12/27/23 Subjective: Feeling better today no further episodes of nausea/vomiting - reports 2-3 weeks of vomiting, typi deana immediately after swallowing food, able to keep some fluids down BP improving; more consistently in 100-110s systolic afebrile ROS: 10 point ROS as noted above, otherwise negative Physical Exam: GEN: Alert, NAD HEENT: Normal conjunctiva, sclera anicteric, CV: Regular rate and rhythm, no edema, systolic murmur Pulm: Nonlabored respirations on room air, clear bilaterally ABD: soft, nontender, nondistended Integumentary: No rashes Neuro: Normal speech, normal affect Problem List: Shock, multifactorial - sepsis and hypovolemic UTI, POA troponemia, likely type 2 NSTEMI Elevated Lipase / Hx Pancreatitis DYLAN secondary to hypovolemia, shock, possible CKD hyperchloremic acidosis Chronic diastolic CHF COPD/Asthma, chronic Hypothyroidism Seizure disorder Hx CVA with residual left sided deficits Hx medical noncompliance Shock, multifactorial - sepsis and hypovolemic UTI, POA hypovolemic aspect given significant nausea/vomiting reported over last 2-3 weeks UA concerning for UTI f/u cultures continue empiric antibiotics on admission, presents from Doctors office with hypotension, dizziness, nausea/vomiting. +poor intake last 2 weeks BP 68/48 on arrival to ED. s/p 2L fluid bolus in ED. BP improved to 80s after IVF boluses CT abdomen (12/26): Remote left-sided rib fractures. Mild Circumferential thickening distal esophagus could reflect mild esophagitis CXR (12/26): Probable remote left-sided rib fractures, similar to CXR 11/28; otherwise negative CT head (12/26): no acute findings. Unchanged remote right-sided infarcts Cardiology/Pulm consulted Started on levophed 12/25 weaning IV Pepcid BID PRN zofran BP improving; now 100-110s systolic troponemia, likely type 2 NSTEMI Troponins elevated but trending down Most recent echo (08/22/23): 55-60%EF, grade 1 diastolic dysfunction, mild TR LHC 1 year ago (11/2022): noted 30% proximal RCA stenosis, left circumflex with luminal irregularities suspect demand ischemia in setting of shock/sepsis Monitor on telemetry Cardiology consulted Echo ordered to reeval EF / stenosis Elevated LFTs Elevated Lipase / Hx Pancreatitis Abdominal u/s (12/25): Heterogenous liver parenchymal pattern; chronic inflammation vs fatty infiltrate AST 91 / ALT 181 / AlkPhos 543 / T.bili normal lipase 184; repeat lipase 209 Daily labs suspect secondary to shock DYLAN secondary to hypovolemia, shock, possible CKD hyperchloremic acidosis Creatinine 3.31 on admission reports poor appetite, +nausea/vomiting over the last 2 weeks Abdominal u/s (12/25): atrophy of right kidney. No hydro Nephrology consulted s/p 2L IVF in ED. bicarb Chronic diastolic CHF COPD/Asthma, chronic Hypothyroidism Seizure disorder Hx CVA with residual left sided deficits confirm home meds, restart as appropriate VTE: heparin sq Code: Full continue ICU level of care I personally spent 50 minutes of critical care time spent on patient's care at bedside and in discussion with consultants / nursing staff
[2023-12-27 07:18] LABS: ALT/SGPT 146 U/L (13-56); AST/SGOT 69 U/L (15-37); Albumin 3.1 g/dL (3.4-5.0); Albumin/Globulin Ratio 1.2 (1.1-1.8); Alkaline Phosphatase 443 U/L (45-117); Anion Gap 13.7 mEq/L (5.0-15.0); BUN Blood Urea Nitrogen 63 mg/dL (7-18); Bicarbonate 13 mEq/L (21-32); Bilirubin Total 0.3 mg/dL (0.2-1.0); Globulin 2.5 g/dL (2.3-3.5); Glomerular Filtration Rate 31 ml/min (=/>90); Glucose Level 119 mg/dL (74-106); HDL Cholesterol 80 mg/dL (40-60); LDL Cholesterol, Calculated 96 mg/dL (<130); LDL Cholesterol,Calc NonReport 96; Magnesium 1.6 mg/dL (1.6-2.4); Phosphorus 3.9 mg/dL (2.5-4.9); Potassium 4.7 mEq/L (3.5-5.1); Protein, Total 5.6 g/dL (6.4-8.2); Sodium Level 137 mEq/L (136-145)
[2023-12-27 07:20] LABS: Bilirubin Direct < 0.2 mg/dL (0-0.2); Bilirubin Indirect, Calculated 0.1 mg/dL (0.2-0.8)
[2023-12-27 07:24] LABS: Differential Total Cells Count 100; Lymphocytes 9 % (15-42); Monocytes 2 % (0-10); Platelet Estimate DECR; Segmented Neutrophils 89 % (40-80)
[2023-12-27 07:25] LABS: Blood Morphology Comment NOTED (NOT SEEN); Macrocytosis 1+
--- NOTE | 2023-12-27 07:45 | RAD REPORT ---
EXAMINATION: COMPLETE ABDOMINAL ULTRASOUND CLINICAL INDICATION: pancreatitis TECHNIQUE: Grayscale ultrasonography of the abdomen was performed. COMPARISON: 12/26/2023, 08/21/2023 prior imaging FINDINGS: LIVER: Heterogenous appearance to the liver parenchyma suggests underlying chronic inflammation or fa tty infiltration. GALLBLADDER: Nonvisualized. BILE DUCTS: Intrahepatic and extrahepatic bile ducts appear normal. Measured near the sissy hepatis , the common bile duct is 8 mm. RIGHT KIDNEY: Atrophy the right kidney. No hydronephrosis. LEFT KIDNEY:. Normal in echogenicity and size. No calculus, solid mass or hydronephrosis. SPLEEN: Normal in echogenicity, with length of 8 cm. PANCREAS/AORTA: Partially obscured by bowel gas without abnormality grossly appreciated. IMPRESSION: Heterogenous liver parenchymal pattern observed which may represent chronic inflammation or fatty inf iltration. Atrophy of the right kidney.
[2023-12-27] MEDS: FAMOTIDINE 20 MG/2 ML VIAL IV SCH (07:49)
[2023-12-27] MEDS: D5W 1,000 ML with NA BICARB 8.4% 150 MEQ IV SCH ×2 (12:00→13:57)
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
--- NOTE | 2023-12-27 14:07 | EKG ---
Test Date: 2023-12-26 Test Time: 17:09:14 Head Of Commission Department: PH MEASUREMENT RESULTS: Intervals: Rate: 67 IN: 194 QRSD: 108 QT: 436 QTc: 460 [place]: P: 60 IN: 194 QRS: 57 T: 200 INTERPRETIVE STATEMENTS: Normal sinus rhythm Left ventricular hypertrophy with repolarization abnormality Abnormal ECG Compared to ECG 12/18/2023 21:10:58 Ventricular premature complex(es) no longer present Left bundle-branch block no longer present Electronically Signed On 12-27-23 14:06:52 CDT by Alan Garay
--- NOTE | 2023-12-27 14:26 | ECHO ---
HEIGHT: 5 ft 2 in WEIGHT: 107 lb 4 oz DATE OF STUDY: 12/27/[address]: Prince Oscar Steele MD 2-DIMENSIONAL: YES M.MODE: YES DOPPLER: YES COLOR FLOW: YES TDS: NO PORTABLE: YES DEFINITY: NO BUBBLE STUDY: NO DIAGNOSIS: HYPOTENSION, MURMUR CARDIAC HISTORY: CATHERIZATION: SURGERY: PROSTHETIC VALVE: PACEMAKER: MEASUREMENTS (cm) DIASTOLIC (NORMALS) SYSTOLIC (NORMALS) IVSd 1.1 (0.6-1.2) LA Diam 2.7 (1.9-4.0) LVEF 60-65% LVIDd 3.1 (3.5-5.7) LVIDs 1.7 (2.0-3.5) %FS 45% LVPWd 1.4 (0.6-1.2) Ao Diam 2.7 (2.0-3.7) 2 DIMENSIONAL ASSESSMENT: RIGHT ATRIUM: NORMAL LEFT ATRIUM: NORMAL RIGHT VENTRICLE: NORMAL LEFT VENTRICLE: MODERATE LEFT VENTRICULAR HYPERTROPHY TRICUSPID VALVE: MILD TRICUSPID REGURGITATION MITRAL VALVE: NORMAL PULMONIC VALVE: NORMAL AORTIC VALVE: NORMAL PERICARDIAL EFFUSION: NONE AORTIC ROOT: NORMAL LEFT VENTRICULAR WALL MOTION: NORMAL. DOPPLER/COLOR FLOW: NORMAL. COMMENTS: 1. MODERATE CONCENTRIC LEFT VENTRICULAR HYPERTROPHY. 2. NORMAL LEFT VENTRICULAR SYSTOLIC FUNCTION. LEFT VENTRICULAR EJECTION FRACTION 60-65%. NORMAL WALL MOTION. 3. NORMAL DIASTOLIC FUNCTION. 4. MILD TRICUSPID REGURGITATION. TECHNOLOGIST: SEAN SAMSON
[2023-12-27] MEDS: FLU (Fluarix Triv) TS24-25(6MOS UP)/PF 45 MCG/0.5 ML Syringe IM ONE (15:00)
[2023-12-27] MEDS ORDERED: PNEUMOCOCCAL VACCINE 0.5 ML IMVAC ONE (15:00)
[2023-12-27] MEDS ORDERED: VANCOMYCIN 1 GM in NA CHLORIDE 0.9% 250 ML IVPB SCH (20:49)
[2023-12-27] MEDS: CEFEPIME 1 GM in NA CHLORIDE 0.9% 100 ML IV SCH (21:54)
[2023-12-27] MEDS: VANCOMYCIN 1 GM in NA CHLORIDE 0.9% 250 ML IVPB ONE (22:38)
[2023-12-27] MEDS: MORPHINE 2 MG/ML SYR IV ONE (23:27)
[2023-12-28] MEDS: MELATONIN 3 MG TABLET PO SCH (01:38)
[2023-12-28] MEDS: NITROGLYCERIN 0.4 MG/TAB SL ONE (03:25)
[2023-12-28] MEDS: ACETAMINOPHEN 500 MG TAB PO PRN (05:01)
[2023-12-28 06:02] LABS: Absolute Lymphocytes (CBC) 1.2 K/uL (0.7-4.9); Absolute Monocytes 0.4 K/uL (0.1-1.3); Absolute Neutrophil 4.2 K/uL (1.8-8.0); Basophils % 0.2 % (0-1.3); Eosinophils % 0.3 % (0-4.4); Hematocrit 25.1 % (36.0-45.0); Hemoglobin 8.6 g/dL (12.0-15.0); Lymphocytes % 20.3 % (15.3-44.8); MCH 35.4 pg (27.0-35.0); MCHC 34.3 g/dL (32.0-36.0); MCV 103.1 fL (80-100); MPV 8.7 fL (7.6-11.3); Monocytes % 7.5 % (3.3-12.3); Neutrophils % 71.7 % (41.7-73.7); Nucleated Red Blood Cells % 0.1 % (0-0); Platelets 113 thou/uL (152-406); RBC Red Blood Cell Count 2.44 M/uL (3.86-4.86)
[2023-12-28 06:20] LABS: Albumin 2.9 g/dL (3.4-5.0); Albumin/Globulin Ratio 1.4 (1.1-1.8); Anion Gap 8.4 mEq/L (5.0-15.0); Bilirubin Total 0.3 mg/dL (0.2-1.0); Globulin 2.1 g/dL (2.3-3.5); Magnesium 1.2 mg/dL (1.6-2.4); Potassium 3.4 mEq/L (3.5-5.1)
[2023-12-28] MEDS: POTASSIUM CL SA 10 MEQ TAB PO ONE (06:45)
[2023-12-28] MEDS: POTASSIUM PHOS IN 0.9 % NACL 15 MMOL/250 ML BAG IV ONE (06:45)
[2023-12-28] MEDS: Magnesium Sulfate 2gm IVPB 2 G/50 ML BAG IV ONE (06:45)
--- NOTE | 2023-12-28 07:42 | P.PN ---
Date of Service: 12/28/23 Subjective: reports some worsening wheeze today tolerating oral intake without issues. no further episodes of nausea/vomiting felt some chest discomfort yesterday - similar to her "usual pain" off levo drip since yesterday; BP stable in 110-120s ROS: 10 point ROS as noted above, otherwise negative Physical Exam: GEN: Alert, NAD HEENT: Normal conjunctiva, sclera anicteric, CV: Regular rate and rhythm, no edema Pulm: Nonlabored respirations on room air, clear bilaterally ABD: soft, nontender, nondistended Neuro: Normal speech, normal affect Problem List: Shock, multifactorial - sepsis and hypovolemic Gram positive Bacteremia UTI, POA acute anemia, unknown origin; Hx iron deficiency anemia troponemia, likely type 2 NSTEMI Elevated LFTs/ Lipase, improving; secondary to shock Hx Pancreatitis DYLAN secondary to hypovolemia, shock, possible CKD hyperchloremic acidosis Chronic diastolic CHF COPD/Asthma, chronic Hypothyroidism Seizure disorder Hx CVA with residual left sided deficits Hx medical noncompliance Shock, multifactorial - sepsis and hypovolemic Gram positive Bacteremia UTI, POA hypovolemia component given significant nausea/vomiting reported over last 2-3 weeks urine cx (12/25): 4+ GNR Blood cx (12/25): GPC in 3/4 bottles continue empiric cefepime / vanc (12/27-) on admission, presents from Doctors office with hypotension, dizziness, nausea/vomiting. +poor intake last 2 weeks BP 68/48 on arrival to ED. Improved to 80s after fluids s/p levophed drip (12/25-12/26); BP stable in 110-120s systolic off levo CT abdomen (12/26): Remote left-sided rib fractures. Mild Circumferential thickening distal esophagus could reflect mild esophagitis CXR (12/26): Probable remote left-sided rib fractures, similar to CXR 11/28; otherwise negative CT head (12/26): no acute findings. Unchanged remote right-sided infarcts Cardiology/Pulm consulted IV Pepcid BID PRN zofran acute anemia, unknown origin; Hx iron deficiency anemia hgb downtrending; 12.8 -> 10.3 -> 8.6 partly from hemodilution she has history of anemia, and blood transfusion, but unable to tell me why denies history of bleeding unknown etioloy. No obvious bleeding on exam. Denies black/tarry stools. no bloody emesis Hx iron deficiency in 2020 (iron 28, tsat 6.4% in 2020) CT did note some esophageal thickening and has been vomiting for ~2 weeks or so risk of gastric ulcer / esophagitis dc heparin; switch to SCDs switch pepcid to PPI Monitor for any active bleeding. repeat hgb ~noon troponemia, likely type 2 NSTEMI Troponins elevated but trending down Most recent echo (08/22/23): 55-60%EF, grade 1 diastolic dysfunction, mild TR LHC 1 year ago (11/2022): noted 30% proximal RCA stenosis, left circumflex with luminal irregularities suspect demand ischemia in setting of shock/sepsis Echo ordered to reeval EF / stenosis Monitor on telemetry Cardiology consulted - No further cardiac work up Elevated LFTs/ Lipase, improving; secondary to shock Hx Pancreatitis Abdominal u/s (12/25): Heterogenous liver parenchymal pattern; chronic inflammation vs fatty infiltrate AST 91 / ALT 181 / AlkPhos 543 / T.bili normal lipase 184 on admission Daily labs - improving suspect secondary to shock improving DYLAN secondary to hypovolemia, shock, possible CKD hyperchloremic acidosis Creatinine 3.31 on admission reports poor appetite, +nausea/vomiting over the last 2 weeks Abdominal u/s (12/25): atrophy of right kidney. No hydro Nephrology consulted s/p bicarb 12/26 improving COPD/Asthma, chronic confirm home meds, restart home inhalers/nebs Chronic diastolic CHF Hypothyroidism Seizure disorder Hx CVA with residual left sided deficits confirm home meds, restart as appropriate VTE: heparin switched to SCD 12/27 given drop in hgb Code: Full continue ICU level of care, possible downgrade later today vs tomorrow Time Spent Managing Pts Care (In Minutes): 52
[2023-12-28] MEDS: ALBUTEROL 2.5 MG/3 ML NEB SOL NEB PRN (09:58)
[2023-12-28 11:54] LABS: Hematocrit 27.2 % (36.0-45.0); Hemoglobin 9.3 g/dL (12.0-15.0)
[2023-12-28] MEDS: PANTOPRAZOLE 40MG TABLET PO SCH (12:56)
[2023-12-28] MEDS: PNEUMOCOCCAL VACCINE 0.5 ML IMVAC ONE (12:57)
--- NOTE | 2023-12-28 15:47 | P.PN ---
(S) Pt remains in the ICU, BP has been soft but better on recheck while at bedside, no further N/V/D, positive cultures noted (O) vitals reviewed in the EMR General: In no apparent distress, Cooperative HEENT: Atraumatic, Normocephalic Neck: Supple Respiratory: Normal air movement, Other (non tachypnec, no wheezing) Cardiovascular: Regular rate/rhythm, Other (cardiac murmur present) Gastrointestinal: Soft and benign, Non-distended Musculoskeletal: Other (muscle mass loss) Integumentary: No rashes Neurological: Normal speech, Normal tone, Other (Lt sided weakness) Laboratory Data (last 24 hrs) Reviewed Conclusions/Impression: A/P) 1. Stage II DYLAN in the setting of hypotension, vol depletion, other but hopefully with functional DYLAN than instrinsic as improving well and Cr level is downward trending post IVF hydration. While TTE did not show any elevated filling pressures, will stop IVF early on as pt tolerating PO intake and BP better 2. Prior DYLAN episodes, undelying CKD Stage III in the setting of small/unilateral Rt kidney, likely a solitary Lt functional kidney state 3. Hypotension 2nd to hypovolemia, sepsis 2nd to gram positive bacteremia, f/u final cultures. Cont to hold any BP meds pt was taking at home 4. Hyperchloremic metab acidosis, bicarb deficit improved 5. Abnormal findings in urine, pyuria, microscopic hematuria, bacteriuria - presumed cystitis and GNR bacteriuria noted on culture, which is different than the GPC in blood, cont coverage for both
[2023-12-28] MEDS: MAGNESIUM SULFATE 1 gm IVPB 1 GM/100 ML BAG IV ONE (16:16)
[2023-12-29 05:14] LABS: Absolute Lymphocytes (CBC) 1.4 K/uL (0.7-4.9); Absolute Monocytes 0.4 K/uL (0.1-1.3); Absolute Neutrophil 2.5 K/uL (1.8-8.0); Basophils % 0.5 % (0-1.3); Eosinophils % 1.1 % (0-4.4); Hematocrit 26.4 % (36.0-45.0); Hemoglobin 9.2 g/dL (12.0-15.0); Lymphocytes % 31.9 % (15.3-44.8); MCH 35.4 pg (27.0-35.0); MCHC 34.6 g/dL (32.0-36.0); MCV 102.2 fL (80-100); MPV 8.3 fL (7.6-11.3); Neutrophils % 57.5 % (41.7-73.7); Nucleated Red Blood Cells % 0.1 % (0-0); Platelets 138 thou/uL (152-406); RBC Red Blood Cell Count 2.59 M/uL (3.86-4.86); Red Cell Distribution Width 13.4 % (12.1-15.2)
[2023-12-29 05:26] VITALS: BMI 21.9
[2023-12-29 05:42] LABS: Albumin 2.9 g/dL (3.4-5.0); Albumin/Globulin Ratio 1.3 (1.1-1.8); Anion Gap 9.1 mEq/L (5.0-15.0); Bilirubin Total 0.3 mg/dL (0.2-1.0); Globulin 2.3 g/dL (2.3-3.5); Magnesium 1.7 mg/dL (1.6-2.4); Phosphorus 2.5 mg/dL (2.5-4.9); Potassium 4.1 mEq/L (3.5-5.1); Protein, Total 5.2 g/dL (6.4-8.2)
[2023-12-29] MEDS: MAGNESIUM SULFATE 1 gm IVPB 1 GM/100 ML BAG IV ONE (06:17)
--- NOTE | 2023-12-29 07:41 | P.PN ---
Date of Service: 12/29/23 Subjective: 2 episodes of loose / watery stool overnight no further episodes of nausea/vomiting breathing okay on room air BP stable; low-normal in 100s denies dizziness/lightheadedness ROS: 10 point ROS as noted above, otherwise negative Physical Exam: GEN: Alert, NAD HEENT: Normal conjunctiva, sclera anicteric, CV: Regular rate and rhythm, no edema Pulm: Nonlabored respirations on room air, clear bilaterally ABD: soft, nontender, nondistended Neuro: Normal speech, normal affect Problem List: Shock, multifactorial - sepsis and hypovolemic Gram positive Bacteremia UTI, POA; Klebsiella acute anemia, unknown origin; Hx iron deficiency anemia troponemia, likely type 2 NSTEMI Elevated LFTs/ Lipase; secondary to shock Hx Pancreatitis DYLAN secondary to hypovolemia, shock, possible CKD, resolved hyperchloremic acidosis, resolved Chronic diastolic CHF COPD/Asthma, chronic Hypothyroidism Seizure disorder Hx CVA with residual left sided deficits Hx medical noncompliance Shock, multifactorial - sepsis and hypovolemic Gram positive Bacteremia UTI, POA hypovolemia component given significant nausea/vomiting reported over last 2-3 weeks urine cx (12/25): Klebsiella Species Blood cx (12/25): GPC in 4/4 bottles repeat blood cx (12/28): ordered continue empiric cefepime / vanc (12/27-) afebrile, no leukocytosis on admission, presents from Doctors office with hypotension, dizziness, nausea/v omiting. +poor intake last 2 weeks BP 68/48 on arrival to ED. Improved to 80s after fluids s/p levophed drip (12/25-12/26); BP stable in 110-120s systolic off levo CT abdomen (12/26): Remote left-sided rib fractures. Mild Circumferential thickening distal esophagus could reflect mild esophagitis CXR (12/26): Probable remote left-sided rib fractures, similar to CXR 11/28; otherwise negative CT head (12/26): no acute findings. Unchanged remote right-sided infarcts Cardiology/Pulm consulted IV Pepcid BID PRN zofran acute anemia, unknown origin; Hx iron deficiency anemia hgb levels initially downtrending; stable last 24hrs partly from hemodilution she has history of anemia, and blood transfusion, but unable to tell me why denies history of bleeding unknown etioloy. No obvious bleeding on exam. Denies black/tarry stools. no bloody emesis Hx iron deficiency in 2020 (iron 28, tsat 6.4% in 2020) CT did note some esophageal thickening and has been vomiting for ~2 weeks or so risk of gastric ulcer / esophagitis SCDs For now continue PPI BID No active bleeding noted. Hgb stable. troponemia, likely type 2 NSTEMI Troponins elevated but trending down [facility] 1 year ago (11/2022): noted 30% proximal RCA stenosis, left circumflex with luminal irregularities Echo (12/26): 60-65% EF with normal diastolic function, mild TR suspect demand ischemia in setting of shock/sepsis Monitor on telemetry Cardiology consulted - No further cardiac work up Elevated LFTs/ Lipase; secondary to shock Hx Pancreatitis Abdominal u/s (12/25): Heterogenous liver parenchymal pattern; chronic inflammation vs fatty infiltrate AST 91 / ALT 181 / AlkPhos 543 / T.bili normal lipase 184 on admission suspect secondary to shock Daily labs LFTs improving, lipase mildly increased 207 -> 280 (12/28) DYLAN secondary to hypovolemia, shock, possible CKD, resolved hyperchloremic acidosis, resolved Creatinine 3.31 on admission reports poor appetite, +nausea/vomiting over the last 2 weeks Abdominal u/s (12/25): atrophy of right kidney. No hydro Nephrology consulted s/p bicarb 12/26 DYLAN resolved COPD/Asthma, chronic confirm home meds, restart home inhalers/nebs Chronic diastolic CHF Hypothyroidism Seizure disorder Hx CVA with residual left sided deficits confirm home meds, restart as appropriate to bring in meds VTE: continue SCDs Code: Full Possibly downgrade to floor later today Patient wanting to go home. Discussed that she will likely need a few more days to recover and waiting on repeat blood cultures without growth. Patient verbalized understanding. Time Spent Managing Pts Care (In Minutes): 52
[2023-12-29] MEDS: VANCOMYCIN 750 MG in NA CHLORIDE 0.9% 150 ML IVPB SCH (09:52)
[2023-12-29] MEDS: DIAZEPAM 2 MG TABLET PO PRN (11:22)
[2023-12-30 05:36] LABS: Hematocrit 25.7 % (36.0-45.0); Hemoglobin 8.8 g/dL (12.0-15.0); MCH 35.5 pg (27.0-35.0); MCHC 34.3 g/dL (32.0-36.0); MCV 103.6 fL (80-100); MPV 8.3 fL (7.6-11.3); Platelets 143 thou/uL (152-406); RBC Red Blood Cell Count 2.48 M/uL (3.86-4.86); Red Cell Distribution Width 13.4 % (12.1-15.2)
[2023-12-30 06:07] LABS: Albumin 2.7 g/dL (3.4-5.0); Albumin/Globulin Ratio 1.2 (1.1-1.8); Anion Gap 7.7 mEq/L (5.0-15.0); Bilirubin Total 0.3 mg/dL (0.2-1.0); Globulin 2.3 g/dL (2.3-3.5); Magnesium 1.3 mg/dL (1.6-2.4); Potassium 4.7 mEq/L (3.5-5.1)
[2023-12-30] MEDS: Magnesium Sulfate 2gm IVPB 2 G/50 ML BAG IV ONE (08:59)
--- NOTE | 2023-12-30 09:39 | P.PN ---
Date of Service: 12/30/23 Subjective: feels some trouble breathing today, wheezing more otherwise no new issues overnight continues to feel improvement each day afebrile ROS: 10 point ROS as noted above, otherwise negative Physical Exam: GEN: Alert, NAD HEENT: Normal conjunctiva, sclera anicteric, CV: Regular rate and rhythm, no edema Pulm: nonlabored at rest, +b/l expiratory wheeze, diminished ABD: soft, nontender, nondistended Neuro: Normal speech, normal affect Problem List: Shock, multifactorial - sepsis and hypovolemic MDR Staph Hominis bacteremia UTI, POA; Klebsiella and Strep Bovis acute anemia, unknown origin; Hx iron deficiency anemia troponemia, likely type 2 NSTEMI Elevated LFTs/ Lipase - improving; secondary to shock Hx Pancreatitis DYLAN secondary to hypovolemia, shock, possible CKD, resolved hyperchloremic acidosis, resolved Chronic diastolic CHF COPD/Asthma, acute on chronic Hypothyroidism Seizure disorder Hx CVA with residual left sided deficits Hx medical noncompliance Shock, multifactorial - sepsis and hypovolemic MDR Staph Hominis bacteremia UTI, POA; Klebsiella and Strep Bovis hypovolemia component given significant nausea/vomiting reported over last 2-3 weeks urine cx (12/25): Klebsiella Species and Strep Bovis Blood cx (12/25): resulted on 12/29 - MDR Staph Hominis only susceptible to vanc/tetracycline repeat blood cx (12/28): NGTD continue empiric cefepime / vanc (12/27-) afebrile, no leukocytosis ID consulted on admission, presents from Doctors office with hypotension, dizziness, nausea/vomiting. +poor intake last 2 weeks BP 68/48 on arrival to ED. Improved to 80s after fluids s/p levophed drip (12/25-12/26); BP stable in 110-120s systolic off levo CT abdomen (12/26): Remote left-sided rib fractures. Mild Circumferential thickening distal esophagus could reflect mild esophagitis CXR (12/26): Probable remote left-sided rib fractures, similar to CXR 11/28; otherwise negative CT head (12/26): no acute findings. Unchanged remote right-sided infarcts Cardiology/Pulm are following acute anemia, unknown origin; Hx iron deficiency anemia hgb levels initially downtrending; stable last 48hrs partly from hemodilution she has history of anemia, and blood transfusion, but unable to tell me why denies history of bleeding unknown etioloy. No obvious bleeding on exam. Denies black/tarry stools. no bloody emesis Hx iron deficiency in 2020 (iron 28, tsat 6.4% in 2020) CT did note some esophageal thickening and has been vomiting for ~2 weeks or so risk of gastric ulcer / esophagitis SCDs For now continue PPI BID No active bleeding noted. Hgb stable. troponemia, type 2 NSTEMI Troponins elevated but trending down [facility] 1 year ago (11/2022): noted 30% proximal RCA stenosis, left circumflex with luminal irregularities Echo (12/26): 60-65% EF with normal diastolic function, mild TR suspect demand ischemia in setting of shock/sepsis Monitor on telemetry Cardiology consulted - No further cardiac work up Elevated LFTs/ Lipase - improving; secondary to shock Hx Pancreatitis Abdominal u/s (12/25): Heterogenous liver parenchymal pattern; chronic inflammation vs fatty infiltrate AST 91 / ALT 181 / AlkPhos 543 / T.bili normal lipase 184 on admission suspect secondary to shock Daily labs - improving DYLAN secondary to hypovolemia, shock, possible CKD, resolved hyperchloremic acidosis, resolved Creatinine 3.31 on admission reports poor appetite, +nausea/vomiting over the last 2 weeks Abdominal u/s (12/25): atrophy of right kidney. No hydro Nephrology consulted s/p bicarb 12/26 DYLAN resolved COPD/Asthma, acute on chronic only uses albuterol rescue inhaler. Doesn't regularly see lithoplate maker PRN albuterol dulera inhaler added 12/29 Chronic diastolic CHF Hypothyroidism Seizure disorder Hx CVA with residual left sided deficits confirm home meds, restart as appropriate to bring in meds VTE: continue SCDs Code: Full Dispo: Home Pending repeat blood cultures without growth Time Spent Managing Pts Care (In Minutes): 52
[2023-12-30] MEDS: ALBUTEROL INHALER 200 PUFF/6.7 GM IH PRN (10:38)
[2023-12-30] MEDS: DULERA 200/5 (MOMETASONE/FORMOTEROL) INHALER IH SCH (20:11)
--- NOTE | 2023-12-30 20:37 | P.PN ---
Date of Service: 12/30/23 Vital Signs Temp Pulse Resp BP Pulse Ox 97.2 F 68 20 110/57 L 98 12/30/23 16:00 12/30/23 16:00 12/30/23 16:00 12/30/23 16:00 12/30/23 16:00 Medications Acetaminophen (Acetaminophen 500 Mg Tab) 500 mg PO Q4HP PRN PRN Reason: Pain scale 8-10 (Severe) Last Admin: 12/30/23 10:48 Dose: 500 mg Albuterol Sulfate (Albuterol Inhaler 200 Puff/6.7 Gm) 2 puff IH Q6H PRN PRN Reason: SHORTNESS OF BREATH Last Admin: 12/30/23 16:50 Dose: 2 puff Diazepam (Diazepam 2 Mg Tablet) 2 mg PO DAILY PRN PRN Reason: ANXIETY Last Admin: 12/30/23 04:02 Dose: 2 mg Cefepime HCl 1 gm/ Sodium (Chloride) 100 mls @ 200 mls/hr IV Q24H RUTHANN; Protocol Last Admin: 12/30/23 20:11 Dose: 100 mls Vancomycin HCl 1 gm/ Sodium (Chloride) 250 mls @ 250 mls/hr IVPB Q36H RUTHANN Melatonin (Melatonin 3 Mg Tablet) 3 mg PO BEDTIME RUTHANN Last Admin: 12/30/23 20:12 Dose: 3 mg Ondansetron HCl (Ondansetron 4 Mg/2 Ml Vial) 4 mg IV Q6HP PRN PRN Reason: NAUSEA / VOMITING Pantoprazole Sodium (Pantoprazole 40mg Tablet) 40 mg PO BIDAC RUTHANN; Protocol Last Admin: 12/30/23 15:56 Dose: 40 mg Microbiology Results 12/26/23 21:45 Blood - Blood Aerobic Blood Culture - Final Staph Hominis 12/26/23 21:45 Blood - Blood Blood Culture Gram Stain - Final 12/26/23 21:45 Blood - Blood Anaerobic Blood Culture - Final Staph Hominis 12/26/23 21:45 Blood - Blood Gram Stain - Final 12/26/23 21:30 Blood - Blood Aerobic Blood Culture - Final Staph Hominis 12/26/23 21:30 Blood - Blood Blood Culture Gram Stain - Final 12/26/23 21:30 Blood - Blood Anaerobic Blood Culture - Final Staph Hominis 12/26/23 21:30 Blood - Blood Gram Stain - Final 12/26/23 21:00 Clean Catch Urine [place] Count - Final >100,000 CFU/ML. 12/26/23 21:00 Clean Catch Urine - Final Strep Bovis Klebsiella Species Assessment/ Plan: Nephrology No dyspnea No chest pain No acute events overnight Vitals, medications, blood work and imaging reviewed in the chart NAD. MMM. NCAT. Normal Respiratory Effort. S1S2. ND Abd. No C/C/E. No rash. AAO. Normal speech. Hypokalemia -Replete prn Hypomagnesemia -Replete as ordered Diastolic CHF, chronic -Daily weight Hypoalbuminemia -Consider protein supplementation Anemia in chronic illness -Monitor H&H Bacteremia Acute Infective Cystitis with Hematuria -Continue Abx
[2023-12-30] MEDS: VANCOMYCIN 1 GM in NA CHLORIDE 0.9% 250 ML IVPB SCH (21:49)
[2023-12-31 04:57] LABS: Absolute Eosinophils 0.1 K/uL (0-0.5); Absolute Lymphocytes (CBC) 1.6 K/uL (0.7-4.9); Absolute Monocytes 0.6 K/uL (0.1-1.3); Basophils % 0.5 % (0-1.3); Eosinophils % 1.7 % (0-4.4); Hematocrit 25.3 % (36.0-45.0); Hemoglobin 8.9 g/dL (12.0-15.0); Lymphocytes % 30.3 % (15.3-44.8); MCH 35.9 pg (27.0-35.0); MCV 102.6 fL (80-100); MPV 7.6 fL (7.6-11.3); Monocytes % 10.7 % (3.3-12.3); Neutrophils % 56.8 % (41.7-73.7); Nucleated Red Blood Cells % 0.1 % (0-0); Platelets 162 thou/uL (152-406); RBC Red Blood Cell Count 2.47 M/uL (3.86-4.86); Red Cell Distribution Width 13.5 % (12.1-15.2)
[2023-12-31 05:40] LABS: Albumin 2.7 g/dL (3.4-5.0); Albumin/Globulin Ratio 1.2 (1.1-1.8); Anion Gap 6.9 mEq/L (5.0-15.0); Bilirubin Total 0.3 mg/dL (0.2-1.0); Globulin 2.3 g/dL (2.3-3.5); Magnesium 1.3 mg/dL (1.6-2.4); Potassium 4.9 mEq/L (3.5-5.1)
[2023-12-31] MEDS: Magnesium Sulfate 2gm IVPB 2 G/50 ML BAG IV SCH (07:46)
[2023-12-31] MEDS: CEFEPIME 2 GM in NA CHLORIDE 0.9% 100 ML IV SCH (10:14)
--- NOTE | 2023-12-31 16:00 | CON ---
History Of Present Illness: This is a 48-year-old female. I was consulted for management of bactere [place] and urinary tract infection. The patient has Staph hominis, blood cultures positive on 12/25 and urine cultures positive for Strep bovis and Klebsiella species. The patient claims that she is havi ng loose motions since yesterday. Denies any other problems. Currently, the patient is being treate d with cefepime and vancomycin. See MARs for other medications. Past Medical History: COPD, thyroid disease, hypertension, seizure disorder, chronic diastolic conge stive heart failure, medical noncompliance, asthma. Past medical history also includes stroke, tonsi llectomy, , ovarian cyst removal. Social History: Nonsmoker, nondrinker. Family History: Noncontributory. Medications: Vancomycin, cefepime. See MARs for other medications. Allergies: MUSHROOMS, SHELLFISH DERIVED AND ASPIRIN. Review of Systems: A 10-point review was performed. Physical Examination: Vital Signs: Temperature 97.9, pulse 83, respirations 14, blood pressure 111/71. HEENT: Unremarkable. Neck: Supple. Lungs: Basal crackles. Heart: S1, S2. Regular. Abdomen: Soft, nontender. Bowel sounds present. Bowel sounds hyperactive. Extremities: No edema. Laboratory Data: Shows WBC 5.2, hemoglobin 8.9, platelets are 162. Chemistry shows BUN of 11, creat inine 0.7. Blood cultures on 12/25 shows Staph hominis. Urine cultures are showing Strep bovis and Klebsiella pneumoniae. Assessment And Plan: Staph hominis bacteremia in a 48-year-old female with multiple medical problems and urinary tract infection with Strep bovis and Klebsiella pneumoniae. The patient initially came with leukopenia and anemia and thrombocytopenia. Consider HIV testing. The patient with Strep bovis in the urine. Consider colonoscopy as outpatient or in hospital if necessary. Diarrhea, run a stoo l for WBC and C diff. We will follow the patient as needed. Thank you Dr. Medrano for consult. NF/MODL Voice ID: [id number] Report ID: [id number]
--- NOTE | 2023-12-31 16:41 | P.PN ---
Subjective Date of Service: 12/31/23 Chief Complaint: hypotension Patient has no new complaint. Blood pressure has been stable. She is eating well. Physical Examination - Vital Signs Temperature: 97.6 F Blood Pressure: 114/68 Pulse: 81 Respirations: 18 Pulse Ox (%): 99 Assessment And Plan - Plan Physical Exam: GEN: Alert, NAD HEENT: Normal conjunctiva, sclera anicteric, CV: Regular rate and rhythm, no edema Pulm: nonlabored at rest, +b/l expiratory wheeze, diminished ABD: soft, nontender, nondistended Neuro: Normal speech, normal affect Problem List: Shock, multifactorial - sepsis and hypovolemic MDR Staph Hominis bacteremia UTI, POA; Klebsiella and Strep Bovis acute anemia, unknown origin; Hx iron deficiency anemia troponemia, likely type 2 NSTEMI Elevated LFTs/ Lipase - improving; secondary to shock Hx Pancreatitis DYLAN secondary to hypovolemia, shock, possible CKD, resolved hyperchloremic acidosis, resolved Chronic diastolic CHF COPD/Asthma, acute on chronic Hypothyroidism Seizure disorder Hx CVA with residual left sided deficits Hx medical noncompliance Shock, multifactorial - sepsis and hypovolemic MDR Staph Hominis bacteremia UTI, POA; Klebsiella and Strep Bovis hypovolemia contributing to the shock given significant nausea/vomiting reported over last 2-3 weeks s/p levophed drip (12/25-12/26); urine cx (12/25): Klebsiella Species and Strep Bovis Blood cx (12/25): resulted on 12/29 - MDR Staph Hominis only susceptible to vanc/tetracycline repeat blood cx (12/28): NGTD continue empiric cefepime / vanc (12/27-) afebrile, no leukocytosis ID Dr. Fink input appreciated. Dr. Fink recommended HIV screen given chronic diarrhea, multiple organism and multiorgan infection. Patient agrees to HIV testing. HIV screen ordered. 2 weeks of antibiotics recommended by Dr. Fink. BP now stable. CT abdomen (12/26): Remote left-sided rib fractures. Mild Circumferential thickening distal esophagus could reflect mild esophagitis CXR (12/26): Probable remote left-sided rib fractures, similar to CXR 11/28; otherwise negative CT head (12/26): no acute findings. Unchanged remote right-sided infarcts Cardiology/Pulm are following acute anemia, unknown origin; Hx iron deficiency anemia Patient had a drop in hemoglobin Hemodilution contributed to the decrease in the hemoglobin/ she has history of anemia, and history of blood transfusions. No reported GI bleed. Chronic anemia of unknown etioloy. Hx iron deficiency in 2020 (iron 28, tsat 6.4% in 2020) Possible occult GI bleeding. Patient would benefit from outpatient EGD continue PPI BID Hemoglobin has been stable. NSTEMI type 2 Troponins elevated but trending down [facility] 1 year ago (11/2022): noted 30% proximal RCA stenosis, left circumflex with luminal irregularities Echo (12/26): 60-65% EF with normal diastolic function, mild TR suspect demand ischemia in setting of shock/sepsis Cardiology evaluated patient and recommended no further cardiac work up Elevated LFTs/ Lipase - improving; secondary to shock Hx Pancreatitis Abdominal u/s (12/25): Heterogenous liver parenchymal pattern; chronic inflammation vs fatty infiltrate AST 91 / ALT 181 / AlkPhos 543 / T.bili normal lipase 184 on admission suspect secondary to shock Monitor LFTs and lipase DYLAN secondary to hypovolemia, shock, possible CKD, resolved hyperchloremic acidosis, resolved Creatinine 3.31 on admission reports poor appetite, +nausea/vomiting over the last 2 weeks Abdominal u/s (12/25): atrophy of right kidney. No hydro Nephrology evaluated patient and assisted with management. s/p bicarb 12/26 DYLAN resolved COPD/Asthma, acute on chronic only uses albuterol rescue inhaler. Doesn't regularly see psychiatric orderly PRN albuterol dulera inhaler added 12/29 Chronic diastolic CHF Hypothyroidism Seizure disorder Hx CVA with residual left sided deficits Continue home medications VTE: continue SCDs Code: Full Dispo: Home Time Spent Managing Pts Care (In Minutes): 52
[2023-12-31] MEDS ORDERED: TRAMADOL HCL 50 MG TAB PO PRN (16:53)
--- NOTE | 2023-12-31 19:39 | P.PN ---
Date of Service: 12/31/23 Vital Signs Temp Pulse Resp BP Pulse Ox 97.6 F 81 18 114/68 99 12/31/23 16:55 12/31/23 16:55 12/31/23 16:55 12/31/23 16:55 12/31/23 16:55 Medications Acetaminophen (Acetaminophen 500 Mg Tab) 500 mg PO Q4HP PRN PRN Reason: Pain scale 8-10 (Severe) Last Admin: 12/31/23 10:18 Dose: 500 mg Albuterol Sulfate (Albuterol Inhaler 200 Puff/6.7 Gm) 2 puff IH Q6H PRN PRN Reason: SHORTNESS OF BREATH Last Admin: 12/30/23 16:50 Dose: 2 puff Carbamazepine (Carbamazepine 200 Mg Tab) 200 mg PO BID [facility] Diazepam (Diazepam 2 Mg Tablet) 2 mg PO DAILY PRN PRN Reason: ANXIETY Last Admin: 12/31/23 04:32 Dose: 2 mg Cefepime HCl 2 gm/ Sodium (Chloride) 100 mls @ 200 mls/hr IV Q12HR [facility]; Protocol Last Admin: 12/31/23 10:14 Dose: 100 mls Vancomycin HCl 1 gm/ Sodium (Chloride) 250 mls @ 250 mls/hr IVPB Q24H [facility] Magnesium Chloride (Magnesium Chloride 64 Mg Tab) 128 mg PO BID [facility] Melatonin (Melatonin 3 Mg Tablet) 3 mg PO BEDTIME [facility] Last Admin: 12/30/23 20:12 Dose: 3 mg Ondansetron HCl (Ondansetron 4 Mg/2 Ml Vial) 4 mg IV Q6HP PRN PRN Reason: NAUSEA / VOMITING Pantoprazole Sodium (Pantoprazole 40mg Tablet) 40 mg PO ACB [facility]; Protocol Microbiology Results 12/26/23 21:45 Blood - Blood Aerobic Blood Culture - Final Staph Hominis 12/26/23 21:45 Blood - Blood Blood Culture Gram Stain - Final 12/26/23 21:45 Blood - Blood Anaerobic Blood Culture - Final Staph Hominis 12/26/23 21:45 Blood - Blood Gram Stain - Final 12/26/23 21:30 Blood - Blood Aerobic Blood Culture - Final Staph Hominis 12/26/23 21:30 Blood - Blood Blood Culture Gram Stain - Final 12/26/23 21:30 Blood - Blood Anaerobic Blood Culture - Final Staph Hominis 12/26/23 21:30 Blood - Blood Gram Stain - Final 12/26/23 21:00 Clean Catch Urine [employer] Count - Final >100,000 CFU/ML. 12/26/23 21:00 Clean Catch Urine - Final Strep Bovis Klebsiella Species Assessment/ Plan: Nephrology No dyspnea No chest pain No acute events overnight Vitals, medications, blood work and imaging reviewed in the chart NAD. MMM. NCAT. Normal Respiratory Effort. S1S2. ND Abd. No C/C/E. No rash. AAO. Normal speech. Hypokalemia -Replete prn Hypomagnesemia -Replete as ordered -Start Slo-mag BID Diastolic CHF, chronic -Daily weight Hypoalbuminemia -Consider protein supplementation Anemia in chronic illness -Monitor H&H Bacteremia Acute Infective Cystitis with Hematuria -Continue Abx Hospitalist note reviewed
[2023-12-31] MEDS: MAGNESIUM CHLORIDE 64 MG TAB PO SCH (20:24)
[2023-12-31] MEDS: VANCOMYCIN 1 GM in NA CHLORIDE 0.9% 250 ML IVPB SCH (20:25)
[2023-12-31] MEDS: carBAMazepine 200 MG TAB PO SCH (20:25)
[2024-01-01 05:52] LABS: Absolute Eosinophils 0.2 K/uL (0-0.5); Absolute Lymphocytes (CBC) 1.4 K/uL (0.7-4.9); Absolute Monocytes 0.4 K/uL (0.1-1.3); Absolute Neutrophil 2.4 K/uL (1.8-8.0); Basophils % 0.6 % (0-1.3); Eosinophils % 4.3 % (0-4.4); Hematocrit 24.8 % (36.0-45.0); Hemoglobin 8.5 g/dL (12.0-15.0); Lymphocytes % 31.2 % (15.3-44.8); MCH 35.3 pg (27.0-35.0); MCHC 34.4 g/dL (32.0-36.0); MCV 102.7 fL (80-100); MPV 7.8 fL (7.6-11.3); Monocytes % 9.8 % (3.3-12.3); Neutrophils % 54.1 % (41.7-73.7); Nucleated Red Blood Cells % 0.1 % (0-0); Platelets 173 thou/uL (152-406); RBC Red Blood Cell Count 2.42 M/uL (3.86-4.86); Red Cell Distribution Width 13.4 % (12.1-15.2)
[2024-01-01 06:05] LABS: Anion Gap 7.5 mEq/L (5.0-15.0); Potassium 4.5 mEq/L (3.5-5.1)
[2024-01-01] MEDS: PANTOPRAZOLE 40MG TABLET PO SCH (08:14)
--- NOTE | 2024-01-01 16:11 | P.PN ---
Subjective Date of Service: 01/01/24 Chief Complaint: hypotension Patient has no new complaint. She denies any pain and she wants to go home. Physical Examination - Vital Signs Temperature: 97.1 F Blood Pressure: 103/58 Pulse: 87 Respirations: 18 Pulse Ox (%): 96 Assessment And Plan - Plan Physical Exam: GEN: Alert, NAD HEENT: Normal conjunctiva, sclera anicteric, CV: Regular rate and rhythm, no edema Pulm: nonlabored at rest, +b/l expiratory wheeze, diminished ABD: soft, nontender, nondistended Neuro: Normal speech, left-sided weakness-chronic Problem List: Shock, multifactorial - sepsis and hypovolemic MDR Staph Hominis bacteremia UTI, POA; Klebsiella and Strep Bovis acute anemia, unknown origin; Hx iron deficiency anemia troponemia, likely type 2 NSTEMI Elevated LFTs/ Lipase - improving; secondary to shock Hx Pancreatitis DYLAN secondary to hypovolemia, shock, possible CKD, resolved hyperchloremic acidosis, resolved Chronic diastolic CHF COPD/Asthma, acute on chronic Hypothyroidism Seizure disorder Hx CVA with residual left sided deficits Hx medical noncompliance Shock, multifactorial - sepsis and hypovolemic MDR Staph Hominis bacteremia UTI, POA; Klebsiella and Strep Bovis hypovolemia contributing to the shock given significant nausea/vomiting reported over last 2-3 weeks s/p levophed drip (12/25-12/26); urine cx (12/25): Klebsiella Species and Strep Bovis Blood cx (12/25): resulted on 12/29 - MDR Staph Hominis only susceptible to vanc/tetracycline repeat blood cx (12/28): NGTD continue empiric cefepime / vanc (12/27-) afebrile, no leukocytosis ID Dr. Fink input appreciated. Dr. Fink recommended HIV screen given chronic diarrhea, multiple organism and multiorgan infection. HIV screen is negative 2 weeks of IV vancomycin recommended by Dr. Fink. PICC line ordered for outpatient IV antibiotic BP has been stable. Overall clinically improved and stable. Acute anemia, unknown origin; Hx iron deficiency anemia Patient had a drop in hemoglobin Hemodilution contributed to the decrease in the hemoglobin/ she has history of anemia, and history of blood transfusions. No reported GI bleed. Chronic anemia of unknown etioloy. Hx iron deficiency in 2020 (iron 28, sat 6.4% in 2020) Possible occult GI bleeding. Patient would benefit from outpatient EGD continue PPI BID Hemoglobin has been stable. NSTEMI type 2 Troponins elevated but trending down [facility] 1 year ago (11/2022): noted 30% proximal RCA stenosis, left circumflex with luminal irregularities Echo (12/26): 60-65% EF with normal diastolic function, mild TR suspect demand ischemia in setting of shock/sepsis Cardiology evaluated patient and recommended no further cardiac work up Elevated LFTs/ Lipase - improving; secondary to shock Hx Pancreatitis Abdominal u/s (12/25): Heterogenous liver parenchymal pattern; chronic inflammation vs fatty infiltrate AST 91 / ALT 181 / AlkPhos 543 / T.bili normal lipase 184 on admission suspect secondary to shock DYLAN secondary to hypovolemia, shock, possible CKD, resolved hyperchloremic acidosis, resolved Creatinine 3.31 on admission reports poor appetite, +nausea/vomiting over the last 2 weeks Abdominal u/s (12/25): atrophy of right kidney. No hydro Nephrology evaluated patient and assisted with management. s/p bicarb 12/26 DYLAN resolved COPD/Asthma, acute on chronic only uses albuterol rescue inhaler. Doesn't regularly see digital media coordinator PRN albuterol dulera inhaler added on 12/29 Chronic diastolic CHF Hypothyroidism Seizure disorder Hx CVA with residual left sided deficits Continue home medications VTE: continue SCDs Code: Full Dispo: Home
--- NOTE | 2024-01-01 17:19 | RAD REPORT ---
EXAMINATION: ONE VIEW CHEST XR CLINICAL INDICATION: picc verification TECHNIQUE: Frontal chest projection is submitted. Examination is limited by patient positioning and t echnique. COMPARISON: No prior exam. FINDINGS: Right-sided PICC line has tip in SVC. Nodular opacity is seen right midlung. Lungs otherwise clear. T he heart is upper limit of normal in size. No displaced fractures identified. IMPRESSION: Right-sided PICC line has its tip in the SVC.
[2024-01-01] MEDS: Mupirocin NASAL 2 APPL/1 GM TUBE NAS SCH (21:03)
--- NOTE | 2024-01-01 21:26 | P.PN ---
Date of Service: 01/01/24 Vital Signs Temp Pulse Resp BP Pulse Ox 97.0 F 82 16 91/52 L 97 01/01/24 20:00 01/01/24 20:00 01/01/24 20:00 01/01/24 20:00 01/01/24 20:00 Medications Acetaminophen (Acetaminophen 500 Mg Tab) 500 mg PO Q4HP PRN PRN Reason: Pain scale 8-10 (Severe) Last Admin: 01/01/24 05:34 Dose: 500 mg Albuterol Sulfate (Albuterol Inhaler 200 Puff/6.7 Gm) 2 puff IH Q6H PRN PRN Reason: SHORTNESS OF BREATH Last Admin: 12/30/23 16:50 Dose: 2 puff Carbamazepine (Carbamazepine 200 Mg Tab) 200 mg PO BID [facility] Last Admin: 01/01/24 21:02 Dose: 200 mg Diazepam (Diazepam 2 Mg Tablet) 2 mg PO DAILY PRN PRN Reason: ANXIETY Last Admin: 01/01/24 21:09 Dose: 2 mg Cefepime HCl 2 gm/ Sodium (Chloride) 100 mls @ 200 mls/hr IV Q12HR [facility]; Protocol Last Admin: 01/01/24 21:03 Dose: 100 mls Vancomycin HCl 1 gm/ Sodium (Chloride) 250 mls @ 250 mls/hr IVPB Q24H [facility] Last Admin: 01/01/24 21:03 Dose: 250 mls Magnesium Chloride (Magnesium Chloride 64 Mg Tab) 128 mg PO BID [facility] Last Admin: 01/01/24 21:02 Dose: 128 mg Melatonin (Melatonin 3 Mg Tablet) 3 mg PO BEDTIME [facility] Last Admin: 01/01/24 21:03 Dose: 3 mg Mupirocin (Mupirocin Nasal 2 Appl/1 Gm Tube) 1 appl THOMAS BID [facility] Stop: 01/06/24 09:01 Last Admin: 01/01/24 21:03 Dose: 1 appl Ondansetron HCl (Ondansetron 4 Mg/2 Ml Vial) 4 mg IV Q6HP PRN PRN Reason: NAUSEA / VOMITING Pantoprazole Sodium (Pantoprazole 40mg Tablet) 40 mg PO ACB [facility]; Protocol Last Admin: 01/01/24 08:14 Dose: 40 mg Microbiology Results 12/26/23 21:45 Blood - Blood Aerobic Blood Culture - Final Staph Hominis 12/26/23 21:45 Blood - Blood Blood Culture Gram Stain - Final 12/26/23 21:45 Blood - Blood Anaerobic Blood Culture - Final Staph Hominis 12/26/23 21:45 Blood - Blood Gram Stain - Final 12/26/23 21:30 Blood - Blood Aerobic Blood Culture - Final Staph Hominis 12/26/23 21:30 Blood - Blood Blood Culture Gram Stain - Final 12/26/23 21:30 Blood - Blood Anaerobic Blood Culture - Final Staph Hominis 12/26/23 21:30 Blood - Blood Gram Stain - Final 12/26/23 21:00 Clean Catch Urine [place] Count - Final >100,000 CFU/ML. 12/26/23 21:00 Clean Catch Urine - Final Strep Bovis Klebsiella Species Assessment/ Plan: Nephrology No dyspnea No chest pain No acute events overnight Vitals, medications, blood work and imaging reviewed in the chart NAD. MMM. NCAT. Normal Respiratory Effort. S1S2. ND Abd. No C/C/E. No rash. AAO. Normal speech. Hypokalemia -Replete prn Hypomagnesemia -Replete as ordered -Continue Slo-mag BID Diastolic CHF, chronic -Daily weight Hypoalbuminemia -Consider protein supplementation Anemia in chronic illness -Monitor H&H Bacteremia Acute Infective Cystitis with Hematuria -Continue Abx Hospitalist note reviewed
[2024-01-02 06:26] LABS: Absolute Eosinophils 0.2 K/uL (0-0.5); Absolute Lymphocytes (CBC) 1.3 K/uL (0.7-4.9); Absolute Monocytes 0.5 K/uL (0.1-1.3); Absolute Neutrophil 2.9 K/uL (1.8-8.0); Basophils % 0.5 % (0-1.3); Eosinophils % 3.3 % (0-4.4); Hematocrit 23.5 % (36.0-45.0); Lymphocytes % 26.6 % (15.3-44.8); MCH 35.2 pg (27.0-35.0); MCHC 33.9 g/dL (32.0-36.0); MCV 103.7 fL (80-100); MPV 7.7 fL (7.6-11.3); Monocytes % 10.2 % (3.3-12.3); Neutrophils % 59.4 % (41.7-73.7); Platelets 162 thou/uL (152-406); RBC Red Blood Cell Count 2.26 M/uL (3.86-4.86)
[2024-01-02 06:57] LABS: Anion Gap 7.1 mEq/L (5.0-15.0); Magnesium 1.2 mg/dL (1.6-2.4); Potassium 4.1 mEq/L (3.5-5.1)
[2024-01-02] MEDS: Magnesium Sulfate 2gm IVPB 2 G/50 ML BAG IV ONE (08:14)
--- NOTE | 2024-01-02 12:14 | EKG ---
Test Date: 2023-12-27 Test Time: 22:25:11 Visualizer: DAVID MEASUREMENT RESULTS: Intervals: Rate: 68 KS: 184 QRSD: 96 QT: 440 QTc: 467 [place]: P: 47 KS: 184 QRS: 10 T: 157 INTERPRETIVE STATEMENTS: Normal sinus rhythm Left ventricular hypertrophy with repolarization abnormality Abnormal ECG Electronically Signed On 01-02-24 12:00:33 CDT by Alan Garay
--- NOTE | 2024-01-02 16:00 | PN ---
Date of Progress Note: 01/02/2024 Subjective: The patient lying in bed, being discharged today. According to patient, has a PICC line in place. Objective: Vital Signs: Reviewed. Lungs: Basal crackles. Heart: S1, S2. Regular. Abdomen: Soft, nontender. Bowel sounds present. Extremities: No edema. Laboratory Data: WBC 4.9, hemoglobin 8, platelets are 162. Chemistry shows BUN of 11, creatinine 0. 9. Assessment And Plan: Bacteremia secondary to Staph hominis. Blood cultures are negative since 12/28 . Klebsiella pneumoniae urinary tract infection and Strep bovis urinary tract infection. The patien t currently on vancomycin and cefepime. See MARs for other medications. We will follow the patient as needed. NF/MODL Voice ID: [id number] Report ID: [id number]
--- NOTE | 2024-01-02 16:36 | PN ---
Date of Progress Note: 01/01/2024 Subjective: The patient is lying in bed. Denies any headache, nausea, vomiting, chest pain, abdomin al pain, constipation, or diarrhea. Objective: Vital Signs: Reviewed. Lungs: Basal crackles. Heart: S1, S2. Regular. Abdomen: Soft, nontender. Bowel sounds present. Extremities: No edema. Laboratory Data: WBC 4.5, hemoglobin 8.5, platelets are 173. Chemistry: BUN of 10, creatinine 0.7. The patient's current medications include cefepime and vancomycin. Repeat blood cultures on 12/28 is negative. Assessment And Plan: Bacteremia secondary to Staphylococcus hominis and urinary tract infection seco ndary to Streptococcus bovis and klebsiella species. Anemia of chronic disease. Thrombocytopenia, i mproved. Continue antibiotic for 2 weeks. We will follow the patient as needed. NF/MODL Voice ID: [id number] Report ID: [id number]
--- NOTE | 2024-01-02 18:04 | P.PN ---
Subjective Date of Service: 01/02/24 Chief Complaint: hypotension Patient has no new complaint. She has good oral intake. She has been afebrile. PICC line placed last night. Physical Examination - Vital Signs Temperature: 97.9 F Blood Pressure: 120/73 Pulse: 82 Respirations: 20 Pulse Ox (%): 99 Assessment And Plan - Plan Physical Exam: GEN: Alert, NAD HEENT: Normal conjunctiva, sclera anicteric, CV: Regular rate and rhythm, no edema Pulm: Clear to auscultation bilaterally, no wheezes or crackles. ABD: soft, nontender, nondistended Neuro: Normal speech, left-sided weakness-chronic Problem List: Shock, multifactorial - sepsis and hypovolemic MDR Staph Hominis bacteremia UTI, POA; Klebsiella and Strep Bovis acute anemia, unknown origin; Hx iron deficiency anemia troponemia, likely type 2 NSTEMI Elevated LFTs/ Lipase - improving; secondary to shock Hx Pancreatitis DYLAN secondary to hypovolemia, shock, possible CKD, resolved hyperchloremic acidosis, resolved Chronic diastolic CHF COPD/Asthma, acute on chronic Hypothyroidism Seizure disorder Hx CVA with residual left sided deficits Hx medical noncompliance Shock, multifactorial - sepsis and hypovolemic MDR Staph Hominis bacteremia UTI, POA; Klebsiella and Strep Bovis hypovolemia contributed to the shock given significant nausea/vomiting reported over last 2-3 weeks s/p levophed drip (12/25-12/26); urine cx (12/25): Klebsiella Species and Strep Bovis Blood cx (12/25): resulted on 12/29 - MDR Staph Hominis only susceptible to vanc/tetracycline repeat blood cx (12/28): NGTD continue empiric cefepime / vanc (12/27-) afebrile, no leukocytosis ID Dr. Fink's follow Dr. Fink recommended HIV screen given chronic diarrhea, multiple organism and multiorgan infection. HIV screen is negative 2 weeks of IV vancomycin recommended by Dr. Fink. PICC line placed for outpatient IV antibiotic BP has been stable. Overall clinically improved and stable. Awaiting arrangement for outpatient IV vancomycin for discharge. Acute anemia, unknown origin; Hx iron deficiency anemia Patient had a drop in hemoglobin Hemodilution contributed to the decrease in the hemoglobin/ she has history of anemia, and history of blood transfusions. No reported GI bleed. Chronic anemia of unknown etioloy. Hx iron deficiency in 2020 (iron 28, sat 6.4% in 2020) Possible occult GI bleeding. Patient would benefit from outpatient EGD continue PPI BID Hemoglobin has been stable. NSTEMI type 2 Troponins elevated but trending down [facility] 1 year ago (11/2022): noted 30% proximal RCA stenosis, left circumflex with luminal irregularities Echo (12/26): 60-65% EF with normal diastolic function, mild TR suspect demand ischemia in setting of shock/sepsis Cardiology evaluated patient and recommended no further cardiac work up Elevated LFTs/ Lipase - improving; secondary to shock Hx Pancreatitis Abdominal u/s (12/25): Heterogenous liver parenchymal pattern; chronic inflammation vs fatty infiltrate AST 91 / ALT 181 / AlkPhos 543 / T.bili normal lipase 184 on admission suspect secondary to shock DYLAN secondary to hypovolemia, shock, possible CKD, resolved hyperchloremic acidosis, resolved Creatinine 3.31 on admission reports poor appetite, +nausea/vomiting over the last 2 weeks Abdominal u/s (12/25): atrophy of right kidney. No hydro Nephrology evaluated patient and assisted with management. s/p bicarb 12/26 DYLAN resolved COPD/Asthma, acute on chronic PRN albuterol dulera inhaler added on 12/29 Chronic diastolic CHF Hypothyroidism Seizure disorder Hx CVA with residual left sided deficits Continue home medications VTE: continue SCDs Code: Full Dispo: Home
--- NOTE | 2024-01-02 21:09 | P.PN ---
Date of Service: 01/02/24 Vital Signs Temp Pulse Resp BP Pulse Ox 97.9 F 82 20 120/73 99 01/02/24 18:04 01/02/24 18:04 01/02/24 18:04 01/02/24 18:04 01/02/24 18:04 Medications Acetaminophen (Acetaminophen 500 Mg Tab) 500 mg PO Q4HP PRN PRN Reason: Pain scale 8-10 (Severe) Last Admin: 01/02/24 17:44 Dose: 500 mg Albuterol Sulfate (Albuterol Inhaler 200 Puff/6.7 Gm) 2 puff IH Q6H PRN PRN Reason: SHORTNESS OF BREATH Last Admin: 01/02/24 15:03 Dose: 2 puff Carbamazepine (Carbamazepine 200 Mg Tab) 200 mg PO BID [facility] Last Admin: 01/02/24 08:15 Dose: 200 mg Diazepam (Diazepam 2 Mg Tablet) 2 mg PO DAILY PRN PRN Reason: ANXIETY Last Admin: 01/02/24 11:13 Dose: 2 mg Cefepime HCl 2 gm/ Sodium (Chloride) 100 mls @ 200 mls/hr IV Q12HR [facility]; Protocol Last Admin: 01/02/24 08:14 Dose: 100 mls Vancomycin HCl 1 gm/ Sodium (Chloride) 250 mls @ 250 mls/hr IVPB Q24H [facility] Last Admin: 01/01/24 21:03 Dose: 250 mls Magnesium Chloride (Magnesium Chloride 64 Mg Tab) 128 mg PO BID [facility] Last Admin: 01/02/24 08:14 Dose: 128 mg Melatonin (Melatonin 3 Mg Tablet) 3 mg PO BEDTIME [facility] Last Admin: 01/01/24 21:03 Dose: 3 mg Mupirocin (Mupirocin Nasal 2 Appl/1 Gm Tube) 1 appl THOMAS BID [facility] Stop: 01/06/24 09:01 Last Admin: 01/02/24 08:15 Dose: 1 appl Ondansetron HCl (Ondansetron 4 Mg/2 Ml Vial) 4 mg IV Q6HP PRN PRN Reason: NAUSEA / VOMITING Pantoprazole Sodium (Pantoprazole 40mg Tablet) 40 mg PO ACB [facility]; Protocol Last Admin: 01/02/24 08:15 Dose: 40 mg Microbiology Results 12/26/23 21:45 Blood - Blood Aerobic Blood Culture - Final Staph Hominis 12/26/23 21:45 Blood - Blood Blood Culture Gram Stain - Final 12/26/23 21:45 Blood - Blood Anaerobic Blood Culture - Final Staph Hominis 12/26/23 21:45 Blood - Blood Gram Stain - Final 12/26/23 21:30 Blood - Blood Aerobic Blood Culture - Final Staph Hominis 12/26/23 21:30 Blood - Blood Blood Culture Gram Stain - Final 12/26/23 21:30 Blood - Blood Anaerobic Blood Culture - Final Staph Hominis 12/26/23 21:30 Blood - Blood Gram Stain - Final 12/26/23 21:00 Clean Catch Urine [place] Count - Final >100,000 CFU/ML. 12/26/23 21:00 Clean Catch Urine - Final Strep Bovis Klebsiella Species Assessment/ Plan: Nephrology No dyspnea No chest pain No acute events overnight Vitals, medications, blood work and imaging reviewed in the chart NAD. MMM. NCAT. Normal Respiratory Effort. S1S2. ND Abd. No C/C/E. No rash. AAO. Normal speech. Hypokalemia -Replete prn Hypomagnesemia -Replete as ordered -Continue Slo-mag BID Diastolic CHF, chronic -Daily weight Hypoalbuminemia -Consider protein supplementation Anemia in chronic illness -Monitor H&H Bacteremia Acute Infective Cystitis with Hematuria -Continue Abx Hospitalist note reviewed
[2024-01-02 23:17] VITALS: O2SAT 98
[2024-01-03 06:20] LABS: Anion Gap 5.5 mEq/L (5.0-15.0); Magnesium 1.5 mg/dL (1.6-2.4); Phosphorus 3.1 mg/dL (2.5-4.9); Potassium 4.5 mEq/L (3.5-5.1)
--- NOTE | 2024-01-03 17:27 | P.DS ---
Admission Date: 12/26/23 Discharge Date: 01/03/24 Disposition: DC HOME/HOME HEALTH CARE Discharge Condition: FAIR Reason for Admission: hypotension Brief History of Present Illness: Patient is a 48-year-old female with a past medical history of congestive heart failure and CVA. She presented to the ER for evaluation of dizziness, vomiting and diarrhea. She also reported poor appetite. Patient was hypotensive on arrival with recorded blood pressure of 68/48. She received 2 L fluid in the ER which raised her SBP to 86. Patient had evidence of endorgan damage including renal insufficiency, elevated troponin and transaminasemia. Her creatinine was 3.31. She also had mildly elevated LFTs. Sepsis protocol initiated in the ED, patient started on antibiotics and admitted to ICU due to hemodynamic instability. Hospital Course: Diagnosis Shock, multifactorial - sepsis and hypovolemic MDR Staph Hominis bacteremia UTI, POA; Klebsiella and Strep Bovis acute anemia, unknown origin; Hx iron deficiency anemia troponemia, likely type 2 NSTEMI Elevated LFTs/ Lipase - improving; secondary to shock Hx Pancreatitis DYLAN secondary to hypovolemia, shock, possible CKD, resolved hyperchloremic acidosis, resolved Chronic diastolic CHF COPD/Asthma, acute on chronic Hypothyroidism Seizure disorder Hx CVA with residual left sided deficits Hx medical noncompliance Patient was admitted and the following medical problems addressed: Shock, multifactorial - sepsis and hypovolemic MDR Staph Hominis bacteremia UTI, POA; Klebsiella and Strep Bovis Patient admitted to the ICU Hypovolemia contributed to the shock given significant nausea/vomiting reported over last 2-3 weeks Patient treated with levophed drip (12/25-12/26); urine culture grew Klebsiella Species and Strep Bovis Blood culture grew MDR Staph Hominis only susceptible to vanc/tetracycline Repeat blood cx showed no growth Patient was initially treated with empiric IV cefepime and vancomycin and then scaled down to IV vancomycin. Infectious disease Dr. Fink's evaluated patient and assisted with management. Dr. Fink recommended HIV screen given chronic diarrhea, multiple organism and multiorgan infection. HIV screen is negative 2 weeks of IV vancomycin recommended by Dr. Fink. PICC line placed for outpatient IV antibiotic BP has been stable. Overall clinically improved and stable. Patient discharged to continue IV antibiotics. Infectious disease Dr. Fink has agreed to follow patient vancomycin trough levels and renal function to make adjustments in the antibiotics. Acute anemia, unknown origin; Hx iron deficiency anemia Patient had a drop in hemoglobin Hemodilution contributed to the decrease in the hemoglobin/ she has history of anemia, and history of blood transfusions. No reported GI bleed. Chronic anemia of unknown etioloy. Hx iron deficiency in 2020 (iron 28, sat 6.4% in 2020) Possible occult GI bleeding. Patient would benefit from outpatient EGD Patient treated with Protonix Hemoglobin has been stable. NSTEMI type 2 Troponins elevated but trending down [facility] 1 year ago (11/2022): noted 30% proximal RCA stenosis, left circumflex with luminal irregularities Echo (12/26): 60-65% EF with normal diastolic function, mild TR Demand ischemia in setting of shock/sepsis suspected. Cardiology evaluated patient and recommended no further cardiac work up Elevated LFTs/ Lipase - improving; secondary to shock Hx Pancreatitis Abdominal u/s (12/25): Heterogenous liver parenchymal pattern; chronic inflammation vs fatty infiltrate AST 91 / ALT 181 / AlkPhos 543 / T.bili normal lipase 184 on admission Patient was asymptomatic. DYLAN secondary to hypovolemia, shock, possible CKD, resolved hyperchloremic acidosis, resolved Creatinine 3.31 on admission Patient had decreased oral intake in addition to nausea/vomiting over 2 weeks. Abdominal u/s (12/25): atrophy of right kidney. No hydronephrosis Nephrology evaluated patient and assisted with management. s/p bicarb 12/26 DYLAN resolved COPD/Asthma, acute on chronic Stable Managed with PRN albuterol dulera inhaler added on 12/29 Chronic diastolic CHF Hypothyroidism Seizure disorder Hx CVA with residual left sided deficits Continued home medications Vital Signs/Physical Exam: Temp Pulse Resp BP Pulse Ox 97.3 F 80 16 105/54 L 100 01/03/24 12:00 01/03/24 12:00 01/03/24 12:00 01/03/24 12:01/03/24 12:00 General: Alert, In no apparent distress, Oriented x3 HEENT: Mucous membr. moist/pink Neck: Supple, JVD not distended Respiratory: Clear to auscultation bilaterally, Normal air movement Cardiovascular: No edema, Regular rate/rhythm, Normal S1 S2 Gastrointestinal: Normal bowel sounds, Soft and benign, Non-distended, No tenderness Musculoskeletal: No swelling Integumentary: No rashes, No cyanosis Neurological: Other (Chronic left-sided weakness) Laboratory Data at Discharge: WBC 4.90 thou/uL (4.3-10.9) 01/02/24 05:34 Hgb 8.0 g/dL (12.0-15.0) L 01/02/24 05:34 Hct 23.5 % (36.0-45.0) L 01/02/24 05:34 Plt Count 162 thou/uL (152-406) 01/02/24 05:34 PT 10.6 SECONDS (9.4-12.5) 12/26/23 17:45 INR 0.94 12/26/23 17:45 Sodium 137 mEq/L (136-145) 01/03/24 05:52 Potassium 4.5 mEq/L (3.5-5.1) 01/03/24 05:52 BUN 11 mg/dL (7-18) 01/03/24 05:52 Creatinine 0.93 mg/dL (0.55-1.02) 01/03/24 05:52 Glucose 70 mg/dL (74-106) L 01/03/24 05:52 Phosphorus 3.1 mg/dL (2.5-4.9) 01/03/24 05:52 Magnesium 1.5 mg/dL (1.6-2.4) L 01/03/24 05:52 Total Bilirubin 0.3 mg/dL (0.2-1.0) 12/31/23 04:38 AST 22 U/L (15-37) 12/31/23 04:38 ALT 50 U/L (13-56) 12/31/23 04:38 Alkaline Phosphatase 234 U/L (45-117) H 12/31/23 04:38 Triglycerides 127 mg/dL (<150) 12/27/23 05:29 Triglycerides Cancelled 12/27/23 05:29 Cholesterol 201 mg/dL (<200) H 12/27/23 05:29 Cholesterol Cancelled 12/27/23 05:29 HDL Cholesterol 80 mg/dL (40-60) H 12/27/23 05:29 HDL Cholesterol Cancelled 12/27/23 05:29 Cholesterol/HDL Ratio 2.51 12/27/23 05:29 Cholesterol/HDL Ratio Cancelled 12/27/23 05:29 Lipase 280 U/L (13-75) H 12/29/23 04:34 Home Medications: Carbamazepine [Tegretol] 200 mg PO BID 12/28/23 Diazepam [Valium] 5 mg DAILY 12/28/23 Metoprolol Tartrate [Lopressor*] 12.5 mg BID 12/28/23 Pantoprazole Sodium 40 mg DAILY 12/28/23 hydrOXYzine HCL [Atarax*] 25 mg Q6HR 12/28/23 traMADol HCL [Ultram*] 50 mg Q8HR 12/28/23 Ensure Enlive 237 ml PO BID #30 can 01/03/24 Magnesium Chloride [Slow-Mag*] 128 mg PO BID #60 tab 01/03/24 Mometasone/Formoterol [Dulera 200 Mcg/5 Mcg Inhaler] 2 puff IH BID #1 inhaler 01/03/24 Mupirocin Calcium [Bactroban Nasal*] 1 appl THOMAS BID #1 tube 01/03/24 New Medications: Mupirocin Calcium [Bactroban Nasal*] 1 appl THOMAS BID #1 tube Mometasone/Formoterol [Dulera 200 Mcg/5 Mcg Inhaler] 2 puff IH BID #1 inhaler Ensure Enlive 237 ml PO BID #30 can Magnesium Chloride [Slow-Mag*] 128 mg PO BID #60 tab Physician Discharge Instructions: Home Health: [facility] Home Health P:[phone] F:[phone] Home IV antibiotics: [id number] , [place] [address] P [phone] F Diet: AHA Activity: Fall precautions Followup: NONE,NONE [Primary Care Provider] - 1-2 Weeks Time spent managing pt's care (in minutes): 38
[2024-01-03 17:39] VITALS: BP 125/62; TEMP 97.5
[2024-01-03] MEDS ORDERED: ENSURE ENLIVE 237 ML CAN PO SCH (21:00)
--- NOTE | 2024-01-03 21:39 | P.PN ---
Date of Service: 01/03/24 Vital Signs Temp Pulse Resp BP Pulse Ox 97.5 F 102 H 16 125/62 99 01/03/24 16:00 01/03/24 16:00 01/03/24 16:00 01/03/24 16:00 01/03/24 16:00 Microbiology Results 12/26/23 21:45 Blood - Blood Aerobic Blood Culture - Final Staph Hominis 12/26/23 21:45 Blood - Blood Blood Culture Gram Stain - Final 12/26/23 21:45 Blood - Blood Anaerobic Blood Culture - Final Staph Hominis 12/26/23 21:45 Blood - Blood Gram Stain - Final 12/26/23 21:30 Blood - Blood Aerobic Blood Culture - Final Staph Hominis 12/26/23 21:30 Blood - Blood Blood Culture Gram Stain - Final 12/26/23 21:30 Blood - Blood Anaerobic Blood Culture - Final Staph Hominis 12/26/23 21:30 Blood - Blood Gram Stain - Final 12/26/23 21:00 Clean Catch Urine [place] Count - Final >100,000 CFU/ML. 12/26/23 21:00 Clean Catch Urine - Final Strep Bovis Klebsiella Species Assessment/ Plan: Nephrology No dyspnea No chest pain No acute events overnight Vitals, medications, blood work and imaging reviewed in the chart NAD. Supine. MMM. NCAT. Normal Respiratory Effort. S1S2. ND Abd. No C/C/E. No rash. AAO. Normal speech. Hypokalemia -Replete prn Hypomagnesemia -Replete as ordered -Continue Slo-mag BID Diastolic CHF, chronic -Daily weight Hypoalbuminemia -Consider protein supplementation Anemia in chronic illness -Monitor H&H Bacteremia Acute Infective Cystitis with Hematuria -Continue Abx Hospitalist note reviewed Case reviewed with Dr. Kitchen
--- NOTE | 2024-01-07 13:06 | EKG ---
Test Date: 2024-01-03 Test Time: 09:47:00 Relocation Coordinator: VALENTINO MEASUREMENT RESULTS: Intervals: Rate: 89 MA: 176 QRSD: 86 QT: 370 QTc: 450 [place]: P: 60 MA: 176 QRS: 8 T: 152 INTERPRETIVE STATEMENTS: Normal sinus rhythm Left ventricular hypertrophy with repolarization abnormality Abnormal ECG Compared to ECG 12/27/2023 22:25:11 No significant changes Electronically Signed On 01-07-24 12:53:54 CDT by Alan Garay
== END 2024-01-03 18:54 | disposition home health service (06) | DRG 871 ==
LOC: ER 16:15 → 3RD-ICU 22:08 → 4TH 12-29 17:41
PROVIDERS: ADMIT Internal Medicine; ATTEND Internal Medicine
PROC: 02HV33Z Insertion of Infusion Device into Superior Vena Cava, Percutaneous Approach (ICD-10-PCS; principal; 2024-01-01)
DX: A41.1 Sepsis due to other specified staphylococcus (principal); I21.A1 Myocardial infarction type 2; R57.1 Hypovolemic shock; N17.9 Acute kidney failure, unspecified; I50.32 Chronic diastolic (congestive) heart failure; I69.354 Hemiplegia and hemiparesis following cerebral infarction affecting left non-dominant side; E87.29 Other acidosis; I13.0 Hypertensive heart and chronic kidney disease with heart failure and stage 1 through stage 4 chronic kidney disease, or unspecified chronic kidney disease; Z59.00 Homelessness unspecified; Z16.24 Resistance to multiple antibiotics; N30.01 Acute cystitis with hematuria; A41.89 Other specified sepsis; N18.30 Chronic kidney disease, stage 3 unspecified; D63.1 Anemia in chronic kidney disease; E86.9 Volume depletion, unspecified; F32.A Depression, unspecified; E87.6 Hypokalemia; E03.9 Hypothyroidism, unspecified; E83.42 Hypomagnesemia; D69.6 Thrombocytopenia, unspecified; G40.909 Epilepsy, unspecified, not intractable, without status epilepticus; J44.9 Chronic obstructive pulmonary disease, unspecified; I25.10 Atherosclerotic heart disease of native coronary artery without angina pectoris; I25.2 Old myocardial infarction; B96.1 Klebsiella pneumoniae [K. pneumoniae] as the cause of diseases classified elsewhere; R79.89 Other specified abnormal findings of blood chemistry; Z23 Encounter for immunization; Z88.6 Allergy status to analgesic agent; Z91.013 Allergy to seafood; Z91.018 Allergy to other foods
CPT/HCPCS: 36415; 36556; 36569; 70450; 71045; 74176; 76377; 76700; 80048; 80053; 80061; 80076; 80156; 80202; 81001; 83605; 83690; 83735; 84100; 84439; 84443; 84484; 85014; 85018; 85025; 85027; 85610; 87040; 87077; 87086; 87088; 87186; 87205; 87389; 90471; 90732; 93005; 93306; 94640; 96361; 96365; 96375; 99285; J0692; J0696; J1644; J1720; J2270; J2543; J2765; J3475; J3535; J7030; J7050; J7613

== ENCOUNTER 2024-01-08 18:32 | Emergency (ER) | payer OTHER ==
[2024-01-08 19:35] LABS: Absolute Eosinophils 0.1 K/uL (0-0.5); Absolute Lymphocytes (CBC) 1.1 K/uL (0.7-4.9); Absolute Monocytes 0.4 K/uL (0.1-1.3); Absolute Neutrophil 4.1 K/uL (1.8-8.0); Basophils % 0.8 % (0-1.3); Eosinophils % 1.1 % (0-4.4); Hematocrit 23.2 % (36.0-45.0); Hemoglobin 8.1 g/dL (12.0-15.0); Lymphocytes % 18.8 % (15.3-44.8); MCH 36.2 pg (27.0-35.0); MCHC 34.8 g/dL (32.0-36.0); MCV 104.2 fL (80-100); Monocytes % 7.3 % (3.3-12.3); Nucleated Red Blood Cells % 0.1 % (0-0); Platelets 198 thou/uL (152-406); RBC Red Blood Cell Count 2.23 M/uL (3.86-4.86); Red Cell Distribution Width 14.1 % (12.1-15.2)
--- NOTE | 2024-01-08 19:46 | RAD REPORT ---
Procedure: Chest Single View HISTORY: Chest pain COMPARISON: January 01, 2024 FINDINGS: The lungs appear clear of acute infiltrate. No significant pleural effusion noted. The heart is mildly enlarged. Callus formation is present at several fractures. IMPRESSION: No acute abnormality is displayed.
[2024-01-08 19:58] LABS: Anion Gap 10.2 mEq/L (5.0-15.0); Magnesium 1.4 mg/dL (1.6-2.4); Potassium 4.2 mEq/L (3.5-5.1); Troponin High Sensitivity 23.3 pg/mL (<58.9)
[2024-01-08] MEDS ORDERED: MAGNESIUM SULFATE 1 gm IVPB 1 GM/100 ML BAG IV ONE (20:29)
--- NOTE | 2024-01-08 22:26 | EDPHYS ---
Physician Documentation [facility] Name: Geetha Khan Age: 48 yrs Sex: Female : 1975 Arrival Date: 01/08/2024 Time: 18:32 Bed 13 Private MD: ED Physician Gene Medrano HPI: 01/07 22:26 This 48 yrs old Female presents to ER via EMS with complaints of Chest Pain. kb 22:26 Patient is a 48-year-old female who presents for chest pain that started at 1430 today. kb States she thinks her PICC line was pulled and may be out of place causing the pain. Denies shortness of breath.. Historical: - Allergies: 18:53 Aspirin; cm10 18:53 CRANBERRY; cm10 18:53 FISH PRODUCT DERIVATIVES; cm10 18:53 GRAPEFRUIT; cm10 18:53 SHELLFISH; cm10 - PMHx: 18:53 Cerebrovascular accident; Chronic obstructive lung disease; Hypertensive disorder; cm10 Myocardial infarction; Seizure; - Immunization history:: Adult Immunizations up to date. - Infectious Disease History:: Denies. - Social history:: Smoking status: Patient reports the use of cigarette tobacco products, smokes one-half pack cigarettes per day. ROS: 22:26 Constitutional: As per HPI kb Exam: 22:26 Constitutional: This is a well developed, well nourished patient who is awake, alert, kb and in no acute distress. Head/Face: Normocephalic, atraumatic. ENT: Moist Mucous membranes Cardiovascular: Regular rate Respiratory: Respirations even and unlabored. No increased work of breathing. Talking in full sentences Skin: Warm, dry with normal turgor. Normal color. MS/ Extremity: Pulses equal, no cyanosis. Neurovascular intact. Full, normal range of motion. Neuro: Awake and alert, oriented to person, place, time, and situation. 23:07 ECG was reviewed by the Attending Physician. kb Vital Signs: 18:51 BP 138 / 98; Pulse 72; Resp 16; Temp 98.2; Pulse Ox 100% on R/A; Weight 79.38 kg; cm10 Height 5 ft. 2 in. ; Pain 9/10; 19:10 BP 141 / 95; Pulse 75; Resp 17; Temp 98(O); Pulse Ox 100% ; rg5 20:08 BP 136 / 89; Pulse 79; Resp 17; Pulse Ox 96% on R/A; rg5 21:15 BP 102 / 91; Pulse 77; Resp 17; Pulse Ox 100% on R/A; rg5 18:51 Body Mass Index 32.01 (79.38 kg, 157.48 cm) cm10 18:51 Pain Scale: Adult cm10 MDM: 18:37 Medical Screening Exam initiated kb 22:25 Differential diagnosis: Arrhythmia, acute [place]. Data reviewed: vital signs, nurses notes. kb Consideration of Admission/Observation Escalation of care including admission/observation considered. Admission considered but patient states she is feeling better and ready to go home. Historians other than the Patient: EMS: [facility]. Counseling: I had a detailed discussion with the patient and/or guardian regarding the historical points, exam findings, and any diagnostic results supporting the discharge/admit diagnosis, lab results, radiology results, the need for outpatient follow up, a family practitioner, to return to the emergency department if symptoms worsen or persist or if there are any questions or concerns that arise at home. ED course: Patient states she is feeling better and is ready to go home. Patient does not want a wait for results of repeat troponin.. 01/07 19:36 Order name: CBC with Automated Diff; Complete Time: 19:39 EDMS 01/07 19:58 Order name: Basic Metabolic Panel; Complete Time: 20:12 EDMS 01/07 19:58 Order name: Troponin High Sensitivity; Complete Time: 20:12 EDMS 01/07 19:58 Order name: NT PRO-BNP; Complete Time: 20:12 EDMS 01/07 19:58 Order name: Magnesium; Complete Time: 20:12 EDMS 01/07 21:31 Order name: Troponin High Sensitivity 01/07 19:47 Order name: RAD; Complete Time: 21:48 EDMS 01/07 18:36 Order name: Cardiac monitoring; Complete Time: 19:21 kb 01/07 18:36 Order name: EKG - Nurse/Tech; Complete Time: 18:54 kb 01/07 18:36 Order name: IV Saline Lock; Complete Time: 19:21 kb 01/07 18:36 Order name: Labs collected and sent; Complete Time: 19:21 kb 01/07 18:36 Order name: O2 Per Protocol; Complete Time: 19:21 kb 01/07 18:36 Order name: O2 Sat Monitoring; Complete Time: 19:21 kb EC:07 Rate is 71 beats/min. Rhythm is regular. QRS [place] is Normal. ID interval is normal at kb 170 msec. QRS interval is normal at 86 msec. QT interval is normal at 465 msec. Administered Medications: 20:29 Drug: Magnesium Sulfate IVPB 1 grams IVPB once over 1 hrs Route: IVPB; Infused Over: 1 rg5 hrs; Site: right upper arm; 21:30 Follow up: IV Status: Completed infusion; IV Intake: 100ml rg5 Disposition Summary: 01/08/24 22:25 Discharge Ordered Notes: Location: Home kb Condition: Stable kb Diagnosis - Chest pain, unspecified kb Followup: kb - With: Emergency Department - When: As needed - Reason: Worsening of condition Followup: kb - With: Private Physician - When: 2 - 3 days - Reason: Recheck today's complaints, Continuance of care, Re-evaluation by your physician Discharge Instructions: - Discharge Summary Sheet kb - Nonspecific Chest Pain, Adult, [id number] kb Forms: - Medication Reconciliation Form kb - Antibiotic Education kb - Prescription Opioid Use kb - Patient Portal Instructions kb - Leadership Thank You Letter kb Signatures: Dispatcher [employer] EDKathy Contreras, HOB GRINDER-C HOB GRINDER-Kelsey Rojas, RN RN cm10 Hakan Crowley, RN RN rg5 Corrections: (The following items were deleted from the chart) 18:37 18:37 BASIC METABOLIC PANEL+C.LAB.BRZ ordered. EDMS EDMS 18:37 18:37 CBC+H.LAB.BRZ ordered. EDMS EDMS 18:37 18:37 MAGNESIUM+C.LAB.BRZ ordered. EDMS EDMS 18:37 18:37 PROBNP+C.LAB.BRZ ordered. EDMS EDMS 18:37 18:37 Troponin High Sensitivity+C.LAB.BRZ ordered. EDMS EDMS 18:37 18:37 Chest Single View+RAD.RAD.BRZ ordered. EDMS EDMS
--- NOTE | 2024-01-08 22:26 | ER ---
Nurse's Notes [facility] Name: Geetha Khan Age: 48 yrs Sex: Female : 1975 Arrival Date: 01/08/2024 Time: 18:32 Bed 13 Private MD: Diagnosis: Chest pain, unspecified Presentation: 01/07 18:51 Chief complaint: EMS states: Called to patient's home due to patient having chest pain cm10 onset today at 1430. Pt reports that she feels like she has anxiety. PT describes the pain as a heaviness. Coronavirus screen: Client denies travel out of the [place] in the last 14 days. Ebola Screen: Patient denies travel to an Ebola-affected area in the 21 days before illness onset. No symptoms or risks identified at this time. Initial Sepsis Screen: Does the patient meet any 2 criteria? No. Patient's initial sepsis screen is negative. Does the patient have a suspected source of infection? No. Patient's initial sepsis screen is negative. Risk Assessment: Do you want to hurt yourself or someone else? Patient reports no desire to harm self or others. Onset of symptoms was January 08, 2024. Care prior to arrival: Glucose check: 85. 18:51 Method Of Arrival: EMS: [facility] cm10 18:51 Acuity: CORRINA 2 cm10 Triage Assessment: 18:53 General: Appears in no apparent distress. comfortable, Behavior is calm, cooperative. cm10 Neuro: No deficits noted. Level of Consciousness is awake, alert, obeys commands, Oriented to person, place, time, situation, Appropriate for age. Respiratory: No deficits noted. Airway is patent Respiratory effort is even, unlabored, Respiratory pattern is regular, symmetrical. Historical: - Allergies: 18:53 Aspirin; cm10 18:53 CRANBERRY; cm10 18:53 FISH PRODUCT DERIVATIVES; cm10 18:53 GRAPEFRUIT; cm10 18:53 SHELLFISH; cm10 - PMHx: 18:53 Cerebrovascular accident; Chronic obstructive lung disease; Hypertensive disorder; cm10 Myocardial infarction; Seizure; - Immunization history:: Adult Immunizations up to date. - Infectious Disease History:: Denies. - Social history:: Smoking status: Patient reports the use of cigarette tobacco products, smokes one-half pack cigarettes per day. Screenin:05 [facility] ED Fall Risk Assessment (Adult) History of falling in the last 3 months, rg5 including since admission Yes- single mechanical fall (1 pt) Confusion or Disorientation No (0 pts) Intoxicated or Sedated No (0 pts) Impaired Gait Yes (1 pt) Mobility Assist Device Used Yes (1 pt) Altered Elimination No (0 pt) Score/Fall Risk Level 3 or more points = High Risk Oriented to surroundings, Maintained a safe environment, Educated pt \T\ family on fall prevention, incl call for assistance when getting out of bed, Hourly rounding (assess needs \T\ fall precautionary measures) done. Abuse screen: Denies threats or abuse. Nutritional screening: No deficits noted. Tuberculosis screening: No symptoms or risk factors identified. Assessment: 19:05 General: Appears in no apparent distress. comfortable, Behavior is calm, cooperative, rg5 appropriate for age. 19:05 Pain: Complains of pain in chest Pain does not radiate. Pain currently is 7 out of 10 rg5 on a pain scale. Quality of pain is described as aching, Pain began 3 hours ago. Is intermittent. Neuro: Level of Consciousness is awake, alert, obeys commands, Oriented to person, place, time, situation. Cardiovascular: Heart tones S1 S2 Capillary refill < 3 seconds Patient's skin is warm and dry. Rhythm is regular. Respiratory: Airway is patent Trachea midline Respiratory effort is even, unlabored, Respiratory pattern is regular, symmetrical. GI: Abdomen is round non-distended, Abd is soft and non tender. : No signs and/or symptoms were reported regarding the genitourinary system. EENT: No deficits noted. Derm: Skin is intact, Skin is dry, Skin is normal, Skin temperature is warm. Musculoskeletal: Circulation, motion, and sensation intact. 20:00 Reassessment: Patient and/or family updated on plan of care and expected duration. Pain rg5 level reassessed. Patient is alert, oriented x 3, equal unlabored respirations, skin warm/dry/pink. 21:14 Reassessment: Patient and/or family updated on plan of care and expected duration. Pain rg5 level reassessed. Patient is alert, oriented x 3, equal unlabored respirations, skin warm/dry/pink. Vital Signs: 18:51 BP 138 / 98; Pulse 72; Resp 16; Temp 98.2; Pulse Ox 100% on R/A; Weight 79.38 kg; cm10 Height 5 ft. 2 in. ; Pain 9/10; 19:10 BP 141 / 95; Pulse 75; Resp 17; Temp 98(O); Pulse Ox 100% ; rg5 20:08 BP 136 / 89; Pulse 79; Resp 17; Pulse Ox 96% on R/A; rg5 21:15 BP 102 / 91; Pulse 77; Resp 17; Pulse Ox 100% on R/A; rg5 18:51 Body Mass Index 32.01 (79.38 kg, 157.48 cm) cm10 18:51 Pain Scale: Adult cm10 ED Course: 18:34 Patient arrived in ED. im 18:35 Kathy Kerns F[facility]-C [facility] kb 18:35 Gene Medrano MD is Attending Physician. kb 18:52 Triage completed. cm10 18:53 Arm band placed on Patient placed in an exam room, on a stretcher, on hydrate control tender, cm10 on pulse oximetry. EKG completed in triage. Results shown to MD. 18:54 EKG done, by ED staff, reviewed by Kathy ENCINAS. cm10 19:04 Hakan Crowley, RN is Primary Nurse. rg5 19:05 Patient has correct armband on for positive identification. Bed in low position. Call rg5 light in reach. Side rails up X2. Client placed on continuous cardiac and pulse oximetry monitoring. NIBP monitoring applied. crewman armoured personnel carrier [id number] on. Pulse ox on. Door closed. Noise minimized. Warm blanket given. Verbal reassurance given. 19:05 No provider procedures requiring assistance completed. Patient maintains SpO2 rg5 saturation greater than 95% on room air. 22:29 Troponin High Sensitivity Sent. rg5 22:36 Provided Education on: post er care. rg5 22:36 Patient did not have IV access during this emergency room visit. rg5 Administered Medications: 20:29 Drug: Magnesium Sulfate IVPB 1 grams IVPB once over 1 hrs Route: IVPB; Infused Over: 1 rg5 hrs; Site: right upper arm; 21:30 Follow up: IV Status: Completed infusion; IV Intake: 100ml rg5 Medication: 19:05 VIS not applicable for this client. rg5 Intake: 21:30 IV: 100ml; Total: 100ml. rg5 Outcome: 22:25 Discharge ordered by MD. kb 22:36 Discharged to home via wheelchair, rg5 22:36 Condition: stable 22:36 Discharge instructions given to patient, Instructed on discharge instructions, 22:36 Patient left the ED. rg5 Signatures: Kathy Kerns FNP-C FNP-Verna Bonner Clarissa RN RN cm10 Hakan Crowley RN RN rg5
[2024-01-09 08:49] VITALS: TEMP 98
[2024-01-09 08:51] VITALS: BP 102/91; O2SAT 100
--- NOTE | 2024-01-09 12:15 | EKG ---
Test Date: 2024-01-08 Test Time: 18:48:44 Mental Health Orderly: JEANNA MEASUREMENT RESULTS: Intervals: Rate: 71 SD: 170 QRSD: 86 QT: 428 QTc: 465 [place]: P: 38 SD: 170 QRS: -1 T: 148 INTERPRETIVE STATEMENTS: Normal sinus rhythm Left ventricular hypertrophy with repolarization abnormality Abnormal ECG Compared to ECG 01/03/2024 09:47:00 No significant changes Electronically Signed On 01-09-24 12:12:43 CDT by Alan Garay
== END 2024-01-08 22:36 | disposition home or self-care (01) ==
LOC: ER 18:32
DX: R07.9 Chest pain, unspecified (principal); I10 Essential (primary) hypertension; J44.9 Chronic obstructive pulmonary disease, unspecified; I25.2 Old myocardial infarction; Z86.73 Personal history of transient ischemic attack (TIA), and cerebral infarction without residual deficits; F17.210 Nicotine dependence, cigarettes, uncomplicated
CPT/HCPCS: 85025; 80048; 36415; 83735; 84484 ×2; 83880; 71045; J3475; 93005

== ENCOUNTER 2024-01-09 20:57 | Emergency (ER) | payer OTHER ==
[2024-01-09] MEDS ORDERED: DIAZEPAM 5 MG TABLET ONE (21:29)
[2024-01-09] MEDS ORDERED: HYDROCODONE/APAP 10/325 TAB ONE (21:29)
--- NOTE | 2024-01-09 21:54 | ER ---
Nurse's Notes [facility] Name: Geetha Khan Age: 48 yrs Sex: Female : 1975 Arrival Date: 01/09/2024 Time: 20:57 Bed IW9 Private MD: Diagnosis: Anxiety disorder, unspecified;Non cardiac chest pain Presentation: 01/08 21:03 Chief complaint: Patient states: feeling anxious , chest pressure. Coronavirus screen: ha1 Vaccine status: Patient reports being unvaccinated. Ebola Screen: No symptoms or risks identified at this time. Initial Sepsis Screen: Does the patient meet any 2 criteria? No. Patient's initial sepsis screen is negative. Does the patient have a suspected source of infection? No. Patient's initial sepsis screen is negative. Risk Assessment: Do you want to hurt yourself or someone else? Patient reports no desire to harm self or others. Onset of symptoms was January 09, 2024. 21:03 Method Of Arrival: EMS: [facility] ha 21:03 Acuity: CORRINA 4 ha1 Triage Assessment: 21:02 General: Appears comfortable, Behavior is calm, cooperative. Pain: Denies pain. Neuro: ha1 Level of Consciousness is awake, alert, obeys commands, Oriented to person, place, time, situation. Cardiovascular: Reports chest pressure Heart tones S1 S2 present Capillary refill < 3 seconds Patient's skin is warm and dry. Respiratory: Airway is patent Trachea midline Respiratory effort is even, unlabored, Respiratory pattern is regular, symmetrical. Historical: - Allergies: 21:08 Aspirin; ha1 21:08 CRANBERRY; ha1 21:08 FISH PRODUCT DERIVATIVES; ha1 21:08 GRAPEFRUIT; ha1 21:08 SHELLFISH; ha1 - Home Meds: 21:08 Nitroglycerin SL [Active]; quetiapine oral [Active]; amlodipine oral [Active]; ha1 - PMHx: 21:08 Cerebrovascular accident; Chronic obstructive lung disease; Hypertensive disorder; ha1 Myocardial infarction; Seizure; - Immunization history:: Adult Immunizations up to date. - Infectious Disease History:: Denies. - Social history:: Smoking status: Patient reports the use of cigarette tobacco products, smokes one pack cigarettes per day. - Family history:: not pertinent. Screenin:10 [facility] ED Fall Risk Assessment (Adult) History of falling in the last 3 months, ha1 including since admission No falls in past 3 months (0 pts) Confusion or Disorientation No (0 pts) Intoxicated or Sedated No (0 pts) Impaired Gait No (0 pts) Mobility Assist Device Used No (0 pt) Altered Elimination No (0 pt) Score/Fall Risk Level 0 - 2 = Low Risk Oriented to surroundings, Maintained a safe environment, Educated pt \T\ family on fall prevention, incl call for assistance when getting out of bed, Hourly rounding (assess needs \T\ fall precautionary measures) done. Abuse screen: Denies threats or abuse. Denies injuries from another. Nutritional screening: No deficits noted. Tuberculosis screening: No symptoms or risk factors identified. Assessment: 21:02 Reassessment: see triage assessment. ha1 22:00 Reassessment: awaiting on transportation. ha1 Vital Signs: 21:03 BP 144 / 68; Pulse 61; Resp 17 S; Temp 97.9(O); Pulse Ox 96% on R/A; Weight 61.23 kg; ha1 Height 5 ft. 2 in. ; 22:00 BP 132 / 67; Pulse 60; Resp 17 S; Pulse Ox 97% on R/A; ha1 21:03 Body Mass Index 24.69 (61.23 kg, 157.48 cm) ha1 [place] Coma Score: 01/09 19:54 Eye Response: spontaneous(4). Motor Response: obeys commands(6). Verbal Response: sp4 oriented(5). Total: 15. ED Course: 01/08 21: Patient arrived in ED. ha1 21:02 Uriel Cannon MD is Attending Physician. sp4 21:02 Aydee Ulrich RN is Primary Nurse. ha1 21:02 Patient has correct armband on for positive identification. Placed in gown. Bed in low ha1 position. Call light in reach. Side rails up X2. 21:02 Arm band placed on right wrist. ha1 21:08 Triage completed. ha1 21:38 EKG done, by ED staff, reviewed by Uriel Cannon MD. ty 01/09 00:00 Provided Education on: follow ups . ha1 00:10 No provider procedures requiring assistance completed. Patient did not have IV access ha1 during this emergency room visit. Administered Medications: 10/24 21:40 Drug: [place] PO 10 mg-325 mg 1 tabs PO once Route: PO; ha1 22:00 Follow up: Response: No adverse reaction; Marked relief of symptoms ha1 21:40 Drug: Diazepam PO 5 mg PO once Route: PO; ha1 22:00 Follow up: Response: No adverse reaction; Marked relief of symptoms ha1 Medication: 01/09 00:00 VIS not applicable for this client. ha1 Outcome: 01/08 21:53 Discharge ordered by MD. sullivan 01/09 00:00 Condition: stable ha1 00:00 Discharged to home via wheelchair, with family, ha1 00:00 Discharge instructions given to patient, family, Instructed on discharge instructions, follow up and referral plans. Demonstrated understanding of instructions, follow-up care, 00:00 Patient left the ED. ha1 Signatures: Aydee Ulrich RN RN ha1 Uriel Cannon MD MD sp4 [employer] Corrections: (The following items were deleted from the chart) 01:03 01:03 Patient left the ED. ha1 ha1
--- NOTE | 2024-01-09 21:54 | EDPHYS ---
Physician Documentation [facility] Name: Geetha Khan Age: 48 yrs Sex: Female : 1975 Arrival Date: 01/09/2024 Time: 20:57 Bed IW9 Private MD: ED Physician Uriel Cannon HPI: 01/08 21:03 This 48 yrs old Female presents to ER via Unassigned with complaints of chest sp4 discomfort , anxiety . 01/09 19:54 48-year-old female with history of left-sided hemiparesis presents with complaint of sp4 chest pain and anxiety by EMS. Historical: - Allergies: 01/08 21:08 Aspirin; ha1 21:08 CRANBERRY; ha1 21:08 FISH PRODUCT DERIVATIVES; ha1 21:08 GRAPEFRUIT; ha1 21:08 SHELLFISH; ha1 - Home Meds: 21:08 Nitroglycerin SL [Active]; quetiapine oral [Active]; amlodipine oral [Active]; ha1 - PMHx: 21:08 Cerebrovascular accident; Chronic obstructive lung disease; Hypertensive disorder; ha1 Myocardial infarction; Seizure; - Immunization history:: Adult Immunizations up to date. - Infectious Disease History:: Denies. - Social history:: Smoking status: Patient reports the use of cigarette tobacco products, smokes one pack cigarettes per day. - Family history:: not pertinent. ROS: 01/09 19:54 Constitutional: Negative for fever, chills, and weight loss, positive for chest pain sp4 and anxiety All other systems are negative, Exam: 19:54 Constitutional: This is a well developed, well nourished patient who is awake, alert, sp4 and in no acute distress. patient has long standing left sided left hemiparesis unchanged from prior Head/Face: Normocephalic, atraumatic. Eyes: Pupils equal round and reactive to light, extra-ocular motions intact. Lids and lashes normal. Conjunctiva and sclera are not injected. Cornea within normal limits. Periorbital areas with no swelling, redness, or edema. ENT: Nares patent. No nasal discharge, no septal abnormalities noted. Tympanic membranes are normal and external auditory canals are clear. Oropharynx with no redness, swelling, or masses, exudates, or evidence of obstruction, uvula midline. Mucous membranes moist. Neck: Trachea midline, no thyromegaly or masses palpated, and no cervical lymphadenopathy. Supple, full range of motion without nuchal rigidity, or vertebral point tenderness. Chest/axilla: Normal chest wall appearance and motion. Nontender with no deformity. No lesions are appreciated. Cardiovascular: Regular rate and rhythm with a normal S1 and S2. No gallops, murmurs, or rubs. Normal PMI, no JVD. No pulse deficits. Respiratory: Lungs have equal breath sounds bilaterally, clear to auscultation and percussion. No rales, rhonchi or wheezes noted. No increased work of breathing, no retractions or nasal flaring. Abdomen/GI: Soft, with normal bowel sounds. No distension or tympany. No guarding or rebound. No evidence of tenderness throughout. Back: No spinal tenderness. No costovertebral tenderness. Skin: Warm, dry with normal turgor. Normal color with no rashes, no lesions, and no evidence of cellulitis. MS/ Extremity: Pulses equal, no cyanosis. Neurovascular intact. Full, normal range of motion. Signs of physical deconditioning Neuro: Awake and alert, GCS 15, oriented to person, place, time, positive left-sided longstanding hemiparesis 19:54 ECG was reviewed by the Attending Physician. EKG at 2140 normal sinus rhythm left sp4 ventricular hypertrophy Vital Signs: 01/08 21:03 BP 144 / 68; Pulse 61; Resp 17 S; Temp 97.9(O); Pulse Ox 96% on R/A; Weight 61.23 kg; ha1 Height 5 ft. 2 in. ; 22:00 BP 132 / 67; Pulse 60; Resp 17 S; Pulse Ox 97% on R/A; ha1 21:03 Body Mass Index 24.69 (61.23 kg, 157.48 cm) ha1 [place] Coma Score: 01/09 19:54 Eye Response: spontaneous(4). Motor Response: obeys commands(6). Verbal Response: sp4 oriented(5). Total: 15. MDM: 01/08 21:04 Medical Screening Exam initiated sp4 01/09 19:57 Differential diagnosis: acute pericarditis, anxiety, chest wall pain, esophagitis, sp4 gastritis. Data reviewed: vital signs, nurses notes, EMS record, old medical records, EKG. ED course: Patient has improved in ER. Stable for discharge home. Further workup was not indicated. 01/08 21:04 Order name: EKG - Nurse/Tech; Complete Time: 22:02 sp4 EC:54 Rate is 73 beats/min. Rhythm is regular, Normal Sinus Rhythm. QRS [place] is Normal. PA sp4 interval is normal. QRS interval is normal. QT interval is prolonged. No Q waves. T waves are Normal. No ST changes noted. Clinical impression: No evidence of ischemia. Interpreted by me. Reviewed by me. Administered Medications: 01/08 21:40 Drug: [place] PO 10 mg-325 mg 1 tabs PO once Route: PO; 1 22:00 Follow up: Response: No adverse reaction; Marked relief of symptoms ha1 21:40 Drug: Diazepam PO 5 mg PO once Route: PO; 1 22:00 Follow up: Response: No adverse reaction; Marked relief of symptoms ha1 Disposition: 01/09 19:57 Chart complete. sp4 Disposition Summary: 01/09/24 21:53 Discharge Ordered Notes: Location: Home sp4 Problem: new sp4 Symptoms: have improved sp4 Condition: Stable sp4 Diagnosis - Anxiety disorder, unspecified sp4 - Non cardiac chest pain sp4 Followup: sp4 - With: Private Physician - When: 7 - 10 days - Reason: Recheck today's complaints Discharge Instructions: - Discharge Summary Sheet sp4 - Managing Anxiety, Adult sp4 Forms: - Patient Portal Instructions sp4 Prescriptions: - Valium 5 mg Oral tablet - take 1 tablet ORAL route once daily As needed PRN anxiety; 12 tablet; Refills: sp4 0, Product Selection Permitted Signatures: Aydee Ulrich RN RN ha1 Uriel Cannon MD MD sp4
[2024-01-10 11:08] VITALS: TEMP 97.9
[2024-01-10 11:09] VITALS: BP 132/67; O2SAT 97
--- NOTE | 2024-01-10 14:12 | EKG ---
Test Date: 2024-01-09 Test Time: 21:40:32 Nurse Anesthesia Program Director: LINSEY MEASUREMENT RESULTS: Intervals: Rate: 73 IN: 178 QRSD: 80 QT: 450 QTc: 495 [place]: P: 38 IN: 178 QRS: -5 T: 144 INTERPRETIVE STATEMENTS: Normal sinus rhythm Left ventricular hypertrophy with repolarization abnormality Prolonged QT Abnormal ECG Compared to ECG 01/08/2024 18:48:44 Prolonged QT interval now present Electronically Signed On 01-10-24 14:10:37 CDT by Alan Garay
== END 2024-01-10 01:03 | disposition home or self-care (01) ==
LOC: ER 20:57
DX: F41.9 Anxiety disorder, unspecified (principal)
CPT/HCPCS: 93005; 99284

== ENCOUNTER 2024-01-13 19:30 | Emergency (ER) | payer OTHER ==
--- NOTE | 2024-01-13 19:54 | EDPHYS ---
Physician Documentation [facility] Name: Geetha Khan Age: 48 yrs Sex: Female : 1975 Arrival Date: 01/13/2024 Time: 19:30 Bed DX4 Private MD: ED Physician Hoa Eddy HPI: 01/12 19:50 This 48 yrs old Female presents to ER via Unassigned with complaints of Chest Pain. sp3 19:51 48-year-old female with history of ME, seizures, chronic chest pain, malingering, sp3 well-known to the ED now presents again today for chest pain. Patient has been here multiple times. Workups have been negative. Review of systems otherwise negative other than her chronic chest pain.. . Historical: - Allergies: 19:57 Aspirin; vc1 19:57 CRANBERRY; vc1 19:57 FISH PRODUCT DERIVATIVES; vc1 19:57 GRAPEFRUIT; vc1 19:57 SHELLFISH; vc1 - PMHx: 19:57 Cerebrovascular accident; Chronic obstructive lung disease; Hypertensive disorder; vc1 Myocardial infarction; Seizure; - PSHx: 19:57 None; vc1 - Immunization history:: Adult Immunizations unknown. - Infectious Disease History:: Denies. - Social history:: Smoking status: Patient reports the use of cigarette tobacco products, smokes one-half pack cigarettes per day. ROS: 19:51 Constitutional: Negative for fever, chills, and weight loss, Eyes: Negative for injury, sp3 pain, redness, and discharge, Neck: Negative for injury, pain, and swelling, Respiratory: Negative for shortness of breath, cough, wheezing, and pleuritic chest pain, Abdomen/GI: Negative for abdominal pain, nausea, vomiting, diarrhea, and constipation, Back: Negative for injury and pain, MS/Extremity: Negative for injury and deformity, Skin: Negative for injury, rash, and discoloration, Neuro: Negative for headache, weakness, numbness, tingling, and seizure, 19:51 All other systems are negative, Exam: 19:51 Constitutional: This is a well developed, well nourished patient who is awake, alert, sp3 and in no acute distress. Head/Face: Normocephalic, atraumatic. Eyes: Pupils equal round and reactive to light, extra-ocular motions intact. Lids and lashes normal. Conjunctiva and sclera are non-icteric and not injected. Cornea within normal limits. Periorbital areas with no swelling, redness, or edema. Neck: Trachea midline, no thyromegaly or masses palpated, and no cervical lymphadenopathy. Supple, full range of motion without nuchal rigidity, or vertebral point tenderness. No Meningismus. Chest/axilla: Normal chest wall appearance and motion. Nontender with no deformity. No lesions are appreciated. Cardiovascular: Regular rate and rhythm with a normal S1 and S2. No gallops, murmurs, or rubs. Normal PMI, no JVD. No pulse deficits. Respiratory: Lungs have equal breath sounds bilaterally, clear to auscultation and percussion. No rales, rhonchi or wheezes noted. No increased work of breathing, no retractions or nasal flaring. Abdomen/GI: Soft, non-tender, with normal bowel sounds. No distension or tympany. No guarding or rebound. No evidence of tenderness throughout. Back: No spinal tenderness. No costovertebral tenderness. Full range of motion. 19:51 ECG was reviewed by the Attending Physician. EKG demonstrates normal sinus rhythm at 71 bpm with QTc 475, leftward axis nonspecific T wave abnormalities diffusely. Vital Signs: 19:30 BP 140 / 85; Pulse 71; Resp 14; Temp 97; Pulse Ox 97% ; vc1 MDM: 19:50 Medical Screening Exam initiated sp3 19:52 Data reviewed: vital signs, old medical records, EKG. ED course: No evidence of acute sp3 cardiac abnormality. Patient in no acute distress laughing and interacting with staff. Patient will be discharged at this time.. Administered Medications: No medications were administered Disposition Summary: 01/13/24 19:53 Discharge Ordered Notes: Location: Home sp3 Condition: Stable sp3 Diagnosis - Chest pain, noncardiac. Malingering. sp3 Followup: sp3 - With: Private Physician - When: Upon discharge from the Emergency Department - Reason: Continuance of care Discharge Instructions: - Discharge Summary Sheet sp3 - Nonspecific Chest Pain, Adult, [id number] sp3 Forms: - Medication Reconciliation Form sp3 - Antibiotic Education sp3 - Prescription Opioid Use sp3 - Patient Portal Instructions sp3 - Leadership Thank You Letter sp3 Signatures: Hoa Eddy MD MD sp3 Calcote, Syeda, RN RN vc1
--- NOTE | 2024-01-13 20:08 | ER ---
Nurse's Notes [facility] Name: Geetha Khan Age: 48 yrs Sex: Female : 1975 Arrival Date: 01/13/2024 Time: 19:30 Bed DX4 Private MD: Diagnosis: Chest pain, noncardiac. Malingering. Presentation: 01/12 19:30 Chief complaint: EMS states: Chest pain with SOB that started 1 hour ago, pt states may vc1 be anxiety. 19:30 Coronavirus screen: Client denies travel out of the [place] in the last 14 days. At this vc1 time, the client does not indicate any symptoms associated with coronavirus-19. Ebola Screen: Patient negative for fever greater than or equal to 101.5 degrees Fahrenheit, and additional compatible Ebola Virus Disease symptoms Patient denies exposure to infectious person. Patient denies travel to an Ebola-affected area in the 21 days before illness onset. No symptoms or risks identified at this time. Initial Sepsis Screen: Does the patient meet any 2 criteria? No. Patient's initial sepsis screen is negative. Does the patient have a suspected source of infection? No. Patient's initial sepsis screen is negative. Risk Assessment: Do you want to hurt yourself or someone else? Patient reports no desire to harm self or others. Onset of symptoms was January 13, 2024 at 18:30. 19:30 Method Of Arrival: EMS: [facility] vc1 19:30 Acuity: CORRINA 4 vc1 Triage Assessment: 19:59 General: Appears in no apparent distress. uncomfortable, slender, unkempt, Behavior is vc1 crying. Pain: Complains of pain in chest Pain does not radiate. Pain currently is 9 out of 10 on a pain scale. EENT: No deficits noted. No signs and/or symptoms were reported regarding the EENT system. Neuro: Level of Consciousness is awake, alert, obeys commands, Oriented to person, place, time, situation, Appropriate for age. Cardiovascular: Heart tones S1 S2 present Patient's skin is warm and dry. Rhythm is regular Chest pain is described as severe. Respiratory: Airway is patent Respiratory effort is even, unlabored, Respiratory pattern is regular, symmetrical, Breath sounds are clear bilaterally. GI: No deficits noted. No signs and/or symptoms were reported involving the gastrointestinal system. : No deficits noted. No signs and/or symptoms were reported regarding the genitourinary system. Derm: Skin is intact, is healthy with good turgor, Skin is dry, Skin is normal, Skin temperature is warm. Musculoskeletal: Circulation, motion, and sensation intact. Historical: - Allergies: 19:57 Aspirin; vc1 19:57 CRANBERRY; vc1 19:57 FISH PRODUCT DERIVATIVES; vc1 19:57 GRAPEFRUIT; vc1 19:57 SHELLFISH; vc1 - PMHx: 19:57 Cerebrovascular accident; Chronic obstructive lung disease; Hypertensive disorder; vc1 Myocardial infarction; Seizure; - PSHx: 19:57 None; vc1 - Immunization history:: Adult Immunizations unknown. - Infectious Disease History:: Denies. - Social history:: Smoking status: Patient reports the use of cigarette tobacco products, smokes one-half pack cigarettes per day. Screenin:58 [facility] ED Fall Risk Assessment (Adult) History of falling in the last 3 months, vc1 including since admission Yes- fall prone (multiple falls) (3 pts) Confusion or Disorientation No (0 pts) Intoxicated or Sedated No (0 pts) Impaired Gait Yes (1 pt) Mobility Assist Device Used Yes (1 pt) Altered Elimination Yes (1 pt) Score/Fall Risk Level 3 or more points = High Risk Oriented to surroundings, Maintained a safe environment, Educated pt \T\ family on fall prevention, incl call for assistance when getting out of bed. Abuse screen: Denies threats or abuse. Nutritional screening: No deficits noted. Tuberculosis screening: No symptoms or risk factors identified. Vital Signs: 19:30 BP 140 / 85; Pulse 71; Resp 14; Temp 97; Pulse Ox 97% ; vc1 ED Course: 19:30 Patient arrived in ED. jj6 19:38 Hoa Eddy MD is Attending Physician. sp3 19:57 Triage completed. vc1 19:57 Arm band placed on right wrist. vc1 19:58 Patient has correct armband on for positive identification. Provided Education on: vc1 anxiety. Pulse ox on. NIBP on. seen in triage. 20:06 No provider procedures requiring assistance completed. Patient did not have IV access vc1 during this emergency room visit. Patient maintains SpO2 saturation greater than 95% on room air. Administered Medications: No medications were administered Medication: 19:58 VIS not applicable for this client. vc1 Outcome: 19:53 Discharge ordered by . sp3 20:06 Discharged to home via wheelchair, Pt placed in lobby to call for a ride home vc1 20:06 Condition: good 20:06 Discharge instructions given to patient, Instructed on discharge instructions, follow up and referral plans. Demonstrated understanding of instructions, follow-up care, 20:07 Patient left the ED. vc1 Signatures: Hoa Eddy MD MD sp3 Bia Garcia Vanessa, RN RN vc1
[2024-01-13 20:27] VITALS: BP 140/85; TEMP 97; O2SAT 97
== END 2024-01-13 20:07 | disposition home or self-care (01) ==
LOC: ER 19:30
DX: R07.89 Other chest pain (principal); Z76.5 Malingerer [conscious simulation]
CPT/HCPCS: 99283

== ENCOUNTER 2024-01-14 19:59 | Emergency (ER) | payer OTHER ==
--- NOTE | 2024-01-14 20:33 | ER ---
Nurse's Notes [facility] Name: Geetha Khan Age: 48 yrs Sex: Female : 1975 Arrival Date: 01/14/2024 Time: 19:59 Bed 12 Private MD: Diagnosis: Anxiety disorder, unspecified Presentation: 01/13 20:02 Chief complaint: Patient states: chest pain 1 hr prior to calling EMS. Coronavirus vc1 screen: Client denies travel out of the [place] in the last 14 days. At this time, the client does not indicate any symptoms associated with coronavirus-19. Ebola Screen: Patient negative for fever greater than or equal to 101.5 degrees Fahrenheit, and additional compatible Ebola Virus Disease symptoms Patient denies exposure to infectious person. Patient denies travel to an Ebola-affected area in the 21 days before illness onset. No symptoms or risks identified at this time. Initial Sepsis Screen: Does the patient meet any 2 criteria? No. Patient's initial sepsis screen is negative. Does the patient have a suspected source of infection? No. Patient's initial sepsis screen is negative. Risk Assessment: Do you want to hurt yourself or someone else? Patient reports no desire to harm self or others. Onset of symptoms was January 14, 2024 at 18:30. Care prior to arrival: None. Activity prior to arrival: None. 20:02 Method Of Arrival: EMS: [facility] vc1 20:02 Acuity: CORRINA 4 vc1 Triage Assessment: 20:01 General: Appears in no apparent distress. uncomfortable, Behavior is calm, cooperative, vc1 appropriate for age. Pain: Complains of pain in chest Pain does not radiate. Pain currently is 10 out of 10 on a pain scale. EENT: No deficits noted. No signs and/or symptoms were reported regarding the EENT system. Neuro: Level of Consciousness is awake, alert, obeys commands, Oriented to person, place, time, situation. Cardiovascular: Heart tones S1 S2 present Capillary refill < 3 seconds Patient's skin is warm and dry. Respiratory: Airway is patent Respiratory effort is even, unlabored, Respiratory pattern is regular, symmetrical, Breath sounds are clear bilaterally. GI: No deficits noted. No signs and/or symptoms were reported involving the gastrointestinal system. : No deficits noted. No signs and/or symptoms were reported regarding the genitourinary system. Derm: No deficits noted. No signs and/or symptoms reported regarding the dermatologic system. Musculoskeletal: No deficits noted. No signs and/or symptoms reported regarding the musculoskeletal system. Historical: - Allergies: 20:03 Aspirin; vc1 20:03 CRANBERRY; vc1 20:03 FISH PRODUCT DERIVATIVES; vc1 20:03 GRAPEFRUIT; vc1 20:03 SHELLFISH; vc1 - PMHx: 20:03 Cerebrovascular accident; Chronic obstructive lung disease; Hypertensive disorder; vc1 Myocardial infarction; Seizure; - Immunization history:: Adult Immunizations unknown. - Infectious Disease History:: Denies. - Social history:: Smoking status: Patient reports the use of cigarette tobacco products, smokes one-half pack cigarettes per day. Screenin:01 [facility] ED Fall Risk Assessment (Adult) History of falling in the last 3 months, vc1 including since admission Yes- fall prone (multiple falls) (3 pts) Confusion or Disorientation No (0 pts) Intoxicated or Sedated No (0 pts) Impaired Gait No (0 pts) Mobility Assist Device Used No (0 pt) Altered Elimination No (0 pt) Score/Fall Risk Level 0 - 2 = Low Risk Oriented to surroundings, Maintained a safe environment, Educated pt \T\ family on fall prevention, incl call for assistance when getting out of bed. Abuse screen: Denies threats or abuse. Nutritional screening: No deficits noted. Tuberculosis screening: No symptoms or risk factors identified. Vital Signs: 20:01 BP 150 / 98; Pulse 86; Resp 14; Temp 97.9; Pulse Ox 99% ; Weight 70.31 kg; Height 5 ft. vc1 2 in. ; Pain 10/10; 20:01 Body Mass Index 28.35 (70.31 kg, 157.48 cm) vc1 20:01 Pain Scale: Adult vc1 ED Course: 20:01 Patient arrived in ED. rv1 20:01 Hoa Eddy MD is Attending Physician. sp3 20:03 Triage completed. vc1 20:04 Arm band placed on right wrist. vc1 20:08 Russell Rodriguez MD is Attending Physician. ec2 20:30 Patient has correct armband on for positive identification. Bed in low position. Call vc1 light in reach. Pulse ox on. NIBP on. 20:30 Provided Education on: f/u with PCP. vc1 20:46 Syeda Bruce, RN is Primary Nurse. vc1 20:55 No provider procedures requiring assistance completed. Patient did not have IV access vc1 during this emergency room visit. Patient maintains SpO2 saturation greater than 95% on room air. Administered Medications: 20:46 Drug: Diazepam PO 5 mg PO once Route: PO; vc1 20:47 Follow up: Response: Medication administered at discharge. vc1 20:46 Drug: hydrOXYzine PO 50 mg PO once Route: PO; vc1 20:47 Follow up: Response: Medication administered at discharge. vc1 Medication: 20:56 VIS not applicable for this client. vc1 Outcome: 20:32 Discharge ordered by . ec2 20:56 Discharged to home via wheelchair, vc1 20:56 Condition: good 20:56 Discharge instructions given to patient, Instructed on discharge instructions, follow up and referral plans. Demonstrated understanding of instructions, follow-up care, 20:58 Patient left the ED. vc1 Signatures: Hoa Eddy MD MD sp3 Syeda Bruce RN RN vc1 Autumn Rodriguez rv1 Russell Rodriguez MD MD ec2
--- NOTE | 2024-01-14 20:33 | EDPHYS ---
Physician Documentation [facility] Name: Geetha Khan Age: 48 yrs Sex: Female : 1975 Arrival Date: 01/14/2024 Time: 19:59 Bed 12 Private MD: ED Physician Russell Rodriguez HPI: 01/13 20:33 This 48 yrs old Female presents to ER via EMS with complaints of Chest Pain > ec2 31 y/o. 20:33 Patient arrives today for evaluation of anxiety. Patient reports that she has ec2 left-sided chest pain which is typical for her anxiety. States that she has no specific alleviating or exacerbating factors.. Historical: - Allergies: 20:03 Aspirin; vc1 20:03 CRANBERRY; vc1 20:03 FISH PRODUCT DERIVATIVES; vc1 20:03 GRAPEFRUIT; vc1 20:03 SHELLFISH; vc1 - PMHx: 20:03 Cerebrovascular accident; Chronic obstructive lung disease; Hypertensive disorder; vc1 Myocardial infarction; Seizure; - Immunization history:: Adult Immunizations unknown. - Infectious Disease History:: Denies. - Social history:: Smoking status: Patient reports the use of cigarette tobacco products, smokes one-half pack cigarettes per day. ROS: 20:33 Constitutional: as per hpi ec2 Exam: 20:33 Constitutional: GEN: NAD Head: atraumatic Eyes: EOMI Ears: External ears are ec2 normal. CV: regular rate LUNGS: no respiratory distress ABD: non-distended SKIN: no evidence of rashes MSK: no evidence of trauma. Psych: Anxious individual's otherwise in no acute distress Vital Signs: 20:01 BP 150 / 98; Pulse 86; Resp 14; Temp 97.9; Pulse Ox 99% ; Weight 70.31 kg; Height 5 ft. vc1 2 in. ; Pain 10/10; 20:01 Body Mass Index 28.35 (70.31 kg, 157.48 cm) vc1 20:01 Pain Scale: Adult vc1 MDM: 20:25 Medical Screening Exam initiated ec2 20:33 Data reviewed: vital signs. ED course: Patient arrives today for concern for chest ec2 pain. Examination remarkable for anxious and appears otherwise in no acute distress. EKG obtained, independently reviewed and interpreted by me, shows normal sinus rhythm, rate of 79, nonspecific T wave abnormalities noted in the lateral leads which appears similar to previous EKG. Will give the patient Valium and Atarax, presentation consistent with anxiety. Will discharge home with return precautions given. Administered Medications: 20:46 Drug: Diazepam PO 5 mg PO once Route: PO; vc1 20:47 Follow up: Response: Medication administered at discharge. vc1 20:46 Drug: hydrOXYzine PO 50 mg PO once Route: PO; vc1 20:47 Follow up: Response: Medication administered at discharge. vc1 Disposition Summary: 01/14/24 20:32 Discharge Ordered Notes: Location: Home ec2 Condition: Stable ec2 Diagnosis - Anxiety disorder, unspecified ec2 Followup: ec2 - With: Private Physician - When: - Reason: Re-evaluation by your physician Discharge Instructions: - Discharge Summary Sheet ec2 - Panic Attack ec2 Forms: - Medication Reconciliation Form ec2 - Antibiotic Education ec2 - Prescription Opioid Use ec2 - Patient Portal Instructions ec2 - Leadership Thank You Letter ec2 Signatures: Syeda Bruce RN RN vc1 Russell Rodriguez MD MD ec2
[2024-01-14] MEDS ORDERED: hydrOXYzine HCL 25 MG TAB ONE (20:39)
[2024-01-14] MEDS ORDERED: DIAZEPAM 5 MG TABLET ONE (20:39)
[2024-01-14 21:02] VITALS: BP 150/98; TEMP 97.9; O2SAT 99
--- NOTE | 2024-01-15 14:48 | EKG ---
Test Date: 2024-01-14 Test Time: 19:59:05 [employer] Planning Operator: ALEIDA MEASUREMENT RESULTS: Intervals: Rate: 79 HI: 176 QRSD: 94 QT: 414 QTc: 474 [place]: P: 35 HI: 176 QRS: -2 T: 144 INTERPRETIVE STATEMENTS: Normal sinus rhythm Left ventricular hypertrophy with repolarization abnormality Abnormal ECG Compared to ECG 01/13/2024 19:46:09 No significant changes Electronically Signed On 01-15-24 14:45:49 CDT by Josse Olson
--- NOTE | 2024-01-15 14:54 | EKG ---
Test Date: 2024-01-13 Test Time: 19:46:09 Instrument Sterilizer: NALINI MEASUREMENT RESULTS: Intervals: Rate: 71 MN: 182 QRSD: 86 QT: 438 QTc: 475 [place]: P: 39 MN: 182 QRS: -2 T: 144 INTERPRETIVE STATEMENTS: Normal sinus rhythm Left ventricular hypertrophy with repolarization abnormality Abnormal ECG Compared to ECG 01/09/2024 21:40:32 Prolonged QT interval no longer present Electronically Signed On 01-15-24 14:47:41 CDT by Josse Olson
== END 2024-01-14 20:58 | disposition home or self-care (01) ==
LOC: ER 19:59
DX: F41.9 Anxiety disorder, unspecified (principal); I10 Essential (primary) hypertension; I25.2 Old myocardial infarction; F17.210 Nicotine dependence, cigarettes, uncomplicated
CPT/HCPCS: 93005; 99284

== ENCOUNTER 2024-01-15 17:53 | Emergency (ER) | payer OTHER ==
--- NOTE | 2024-01-15 18:57 | RAD REPORT ---
EXAMINATION: ONE VIEW CHEST XR CLINICAL INDICATION: CHEST PAIN TECHNIQUE: Frontal chest projection is submitted. Examination is limited by patient positioning and t echnique. COMPARISON: No prior exam. FINDINGS: The lungs are well inflated and clear. The heart is normal in size. No displaced fractures identified . Right PICC line tip in SVC. IMPRESSION: No acute intrathoracic abnormalities.
[2024-01-15] MEDS ORDERED: ASPIRIN 81 MG CHEWABLE TABLET ONE (19:20)
[2024-01-15 19:58] LABS: Absolute Eosinophils 0.2 K/uL (0-0.5); Absolute Lymphocytes (CBC) 1.1 K/uL (0.7-4.9); Absolute Monocytes 0.4 K/uL (0.1-1.3); Absolute Neutrophil 3.4 K/uL (1.8-8.0); Basophils % 0.9 % (0-1.3); Eosinophils % 3.5 % (0-4.4); Hematocrit 29.3 % (36.0-45.0); Lymphocytes % 20.9 % (15.3-44.8); MCH 36.3 pg (27.0-35.0); MCHC 34.3 g/dL (32.0-36.0); MCV 105.9 fL (80-100); MPV 6.2 fL (7.6-11.3); Monocytes % 7.3 % (3.3-12.3); Neutrophils % 67.4 % (41.7-73.7); Nucleated Red Blood Cells % 0.2 % (0-0); Platelets 275 thou/uL (152-406); RBC Red Blood Cell Count 2.77 M/uL (3.86-4.86); Red Cell Distribution Width 14.7 % (12.1-15.2)
[2024-01-15 20:10] LABS: Anion Gap 9.1 mEq/L (5.0-15.0); Magnesium 1.2 mg/dL (1.6-2.4); Potassium 4.1 mEq/L (3.5-5.1); Troponin High Sensitivity 20.8 pg/mL (<58.9)
--- NOTE | 2024-01-15 20:16 | EDPHYS ---
Physician Documentation [facility] Name: Geetha Khan Age: 48 yrs Sex: Female : 1975 Arrival Date: 01/15/2024 Time: 17:53 Bed [id number] Private MD: ED Physician Sallie Wilson HPI: 01/14 18:49 This 48 yrs old Female presents to ER via EMS with complaints of Chest Pain, Anxiety. ci 18:49 Patient is a 48-year-old female with PMH CVA, COPD, hypertension who presents to the ED ci with chief complaint of left-sided chest pain that began an hour ago. Reports chest pain woke her up from sleep. Pain is intermittent, aching, nonradiating. Patient also complaining of anxiety that is relieved by Vicodin. Patient told nursing she would not be here if she did not lose her prescription for Vicodin. Endorses mild shortness of breath. No diaphoresis, nausea/vomiting. Patient was seen in the ED yesterday for chest pain and the day prior. Historical: - Allergies: 18:11 Aspirin; cm10 18:11 CRANBERRY; cm10 18:11 FISH PRODUCT DERIVATIVES; cm10 18:11 GRAPEFRUIT; cm10 18:11 SHELLFISH; cm10 - PMHx: 18:11 Cerebrovascular accident; Chronic obstructive lung disease; Hypertensive disorder; cm10 Myocardial infarction; Seizure; - Immunization history:: Adult Immunizations up to date. - Infectious Disease History:: Denies. - Social history:: Smoking status: Patient reports the use of cigarette tobacco products, unknown amount. ROS: 18:49 Constitutional: Negative for fever, chills, and weight loss, ci 18:49 Cardiovascular: Positive for chest pain, Negative for edema, orthopnea, palpitations, 18:49 Respiratory: Positive for cough, shortness of breath, Negative for hemoptysis, orthopnea, 18:49 Abdomen/GI: Negative for abdominal pain, nausea, vomiting, and diarrhea, 18:49 Psych: Positive for anxiety, Negative for homicidal ideation, suicidal ideation, Exam: 18:49 Constitutional: This is a well developed, well nourished patient who is awake, alert, ci and in no acute distress. Head/Face: Normocephalic, atraumatic. Eyes: Pupils equal round and reactive to light, extra-ocular motions intact. Lids and lashes normal. Conjunctiva and sclera are non-icteric and not injected. Cornea within normal limits. Periorbital areas with no swelling, redness, or edema. ENT: Nares patent. No nasal discharge, no septal abnormalities noted. Tympanic membranes are normal and external auditory canals are clear. Oropharynx with no redness, swelling, or masses, exudates, or evidence of obstruction, uvula midline. Mucous membranes moist. Neck: Trachea midline, no thyromegaly or masses palpated, and no cervical lymphadenopathy. Supple, full range of motion without nuchal rigidity, or vertebral point tenderness. No Meningismus. Chest/axilla: Normal chest wall appearance and motion. Nontender with no deformity. No lesions are appreciated. Cardiovascular: Regular rate and rhythm with a normal S1 and S2. No gallops, murmurs, or rubs. Normal PMI, no JVD. No pulse deficits. Respiratory: Lungs have equal breath sounds bilaterally, clear to auscultation and percussion. No rales, rhonchi or wheezes noted. No increased work of breathing, no retractions or nasal flaring. Abdomen/GI: Soft, non-tender, with normal bowel sounds. No distension or tympany. No guarding or rebound. No evidence of tenderness throughout. Noted to have dried blood to umbilicus. No active bleeding. Skin: Warm, dry with normal turgor. Normal color with no rashes, no lesions, and no evidence of cellulitis. MS/ Extremity: Pulses equal, no cyanosis. Neurovascular intact. Full, normal range of motion. Neuro: Awake and alert, GCS 15, oriented to person, place, time, and situation. Cranial nerves II-XII grossly intact. Motor strength 5/5 in all extremities. Sensory grossly intact. Cerebellar exam normal. Normal gait. Vital Signs: 18:10 BP 120 / 87; Pulse 86; Resp 18; Temp 96.6(TE); Pulse Ox 96% on R/A; Weight 79.38 kg; cm10 Height 5 ft. 2 in. ; Pain 10/10; 19:46 BP 133 / 94; Pulse 87; Resp 20 S; Temp 97.4(O); Pain 10/10; mt4 20:26 BP 140 / 103; Pulse 87; Resp 19 S; Temp 97.5(O); Pain 10/10; mt4 20:54 BP 134 / 97; Pulse 80; Resp 22 S; Temp 98.4(O); Pain 4/10; mt4 18:10 Body Mass Index 32.01 (79.38 kg, 157.48 cm) cm10 18:10 Pain Scale: Adult cm10 19:46 Pain Scale: Adult mt4 20:26 Pain Scale: Adult mt4 20:54 Pain Scale: Adult mt4 Mariluz Coma Score: 19:46 Eye Response: spontaneous(4). Motor Response: obeys commands(6). Verbal Response: mt4 oriented(5). Total: 15. MDM: 17:58 Medical Screening Exam initiated ci 18:49 Differential diagnosis:. ED course: . ci 20:13 HEART Score: History: Slightly Suspicious (0), ECG: Non specific repolarization ci disturbance / LBTB / PM (1), Age: > 45 and < 65 years (1), Risk Factors: 1 or 2 risk factors (1), [Hypertension] Troponin: < or = 1 x Normal Limit (0), Total Score = 3. 20:16 Data reviewed: vital signs, nurses notes. ED course: EKG with no evidence of STEMI, ci troponin unremarkable, doubt ACS. Mild hypomagnesemia, magnesium repleted. Stable for discharge with close outpatient follow-up.. 01/14 18:09 Order name: Basic Metabolic Panel; Complete Time: 20:11 ci 01/14 18:09 Order name: CBC with Diff; Complete Time: 20:32 ci 01/14 18:09 Order name: Magnesium; Complete Time: 20:11 ci 01/14 18:09 Order name: NT PRO-BNP; Complete Time: 20:11 ci 01/14 18:09 Order name: Troponin HS; Complete Time: 20:11 ci 01/14 20:22 Order name: CBC Smear Scan; Complete Time: 20:32 EDMS 01/14 18:09 Order name: XRAY Chest (1 view); Complete Time: 19:04 ci 01/14 18:09 Order name: Cardiac monitoring; Complete Time: 19:43 ci 01/14 18:09 Order name: EKG - Nurse/Tech; Complete Time: 19:46 ci 01/14 18:09 Order name: IV Saline Lock; Complete Time: 19:44 ci 01/14 18:09 Order name: Labs collected and sent; Complete Time: 19:44 ci 01/14 18:09 Order name: O2 Per Protocol; Complete Time: 19:44 ci 01/14 18:09 Order name: O2 Sat Monitoring; Complete Time: 19:43 ci Administered Medications: 19:43 Not Given (Patient Refused): aspirinchewable tablet 324 mg PO once; 81 mg tablets x 4 mt4 20:25 Drug: Magnesium PO 800 mg PO once Route: PO; mt4 20:54 Follow up: Response: No adverse reaction mt4 20:25 Drug: hydrOXYzine PO 50 mg PO once Route: PO; mt4 20:54 Follow up: Response: No adverse reaction mt4 20:25 Drug: HYDROcodone-acetaminophen PO 5 mg-325 mg 1 tabs PO once Route: PO; mt4 20:53 Follow up: Response: No adverse reaction mt4 Disposition Summary: 01/15/24 20:15 Discharge Ordered Notes: Location: Home ci Condition: Stable ci Diagnosis - Chest pain, unspecified ci Followup: ci - With: Private Physician - When: 2 - 3 days - Reason: Discharge Instructions: - Discharge Summary Sheet ci - Nonspecific Chest Pain, Adult ci Forms: - Medication Reconciliation Form ci - Antibiotic Education ci - Prescription Opioid Use ci - Patient Portal Instructions ci - Leadership Thank You Letter ci Signatures: Dispatcher [employer] Kelsey Mireles, RN RN cm10 Sallie Wilson Monster Holm, RN RN mt4 Corrections: (The following items were deleted from the chart) 18:10 18:09 BASIC METABOLIC PANEL+C.LAB.BRZ ordered. EDMS EDMS 18:10 18:09 CBC+H.LAB.BRZ ordered. EDMS EDMS 18:10 18:09 MAGNESIUM+C.LAB.BRZ ordered. EDMS EDMS 18:10 18:09 PROBNP+C.LAB.BRZ ordered. EDMS EDMS 18:10 18:09 Troponin High Sensitivity+C.LAB.BRZ ordered. EDMS EDMS 18:10 18:10 Chest Single View+RAD.RAD.BRZ ordered. EDMS EDMS 18:54 18:49 Constitutional: This is a well developed, well nourished patient who is awake, ci alert, and in no acute distress. Head/Face: Normocephalic, atraumatic. Eyes: Pupils equal round and reactive to light, extra-ocular motions intact. Lids and lashes normal. Conjunctiva and sclera are non-icteric and not injected. Cornea within normal limits. Periorbital areas with no swelling, redness, or edema. ENT: Nares patent. No nasal discharge, no septal abnormalities noted. Tympanic membranes are normal and external auditory canals are clear. Oropharynx with no redness, swelling, or masses, exudates, or evidence of obstruction, uvula midline. Mucous membranes moist. Neck: Trachea midline, no thyromegaly or masses palpated, and no cervical lymphadenopathy. Supple, full range of motion without nuchal rigidity, or vertebral point tenderness. No Meningismus. Chest/axilla: Normal chest wall appearance and motion. Nontender with no deformity. No lesions are appreciated. Cardiovascular: Regular rate and rhythm with a normal S1 and S2. No gallops, murmurs, or rubs. Normal PMI, no JVD. No pulse deficits. Respiratory: Lungs have equal breath sounds bilaterally, clear to auscultation and percussion. No rales, rhonchi or wheezes noted. No increased work of breathing, no retractions or nasal flaring. Abdomen/GI: Soft, non-tender, with normal bowel sounds. No distension or tympany. No guarding or rebound. No evidence of tenderness throughout. Noted to have dried blood to umbilicus. No active bleeding. Abdomen protuberant but soft, no tenderness to palpation, no guarding, no CVA tenderness bilaterally. Skin: Warm, dry with normal turgor. Normal color with no rashes, no lesions, and no evidence of cellulitis. MS/ Extremity: Pulses equal, no cyanosis. Neurovascular intact. Full, normal range of motion. Neuro: Awake and alert, GCS 15, oriented to person, place, time, and situation. Cranial nerves II-XII grossly intact. Motor strength 5/5 in all extremities. Sensory grossly intact. Cerebellar exam normal. Normal gait. ci
--- NOTE | 2024-01-15 20:16 | ER ---
Nurse's Notes [facility] Name: Geetha Khan Age: 48 yrs Sex: Female : 1975 Arrival Date: 01/15/2024 Time: 17:53 Bed IW10 Private MD: Diagnosis: Chest pain, unspecified Presentation: 01/14 18:10 Chief complaint: Patient states: chest pain to the left side of her chest onset while cm10 she was laying in bed. Pt states, "I wouldn't be here if my wouldn't have lost my prescription for Vicodin.". Coronavirus screen: Client denies travel out of the [place] in the last 14 days. Ebola Screen: Patient denies travel to an Ebola-affected area in the 21 days before illness onset. No symptoms or risks identified at this time. Initial Sepsis Screen: Does the patient meet any 2 criteria? No. Patient's initial sepsis screen is negative. Does the patient have a suspected source of infection? No. Patient's initial sepsis screen is negative. Risk Assessment: Do you want to hurt yourself or someone else? Patient reports no desire to harm self or others. Onset of symptoms was January 15, 2024. 18:10 Method Of Arrival: EMS: [facility] cm10 18:10 Acuity: CORRINA 3 cm10 Triage Assessment: 18:11 General: Appears in no apparent distress. comfortable, Behavior is anxious. Neuro: No cm10 deficits noted. Level of Consciousness is awake, alert, obeys commands, Oriented to person, place, time, situation, Appropriate for age. Respiratory: No deficits noted. Airway is patent Respiratory effort is even, unlabored, Respiratory pattern is regular, symmetrical. Historical: - Allergies: 18:11 Aspirin; cm10 18:11 CRANBERRY; cm10 18:11 FISH PRODUCT DERIVATIVES; cm10 18:11 GRAPEFRUIT; cm10 18:11 SHELLFISH; cm10 - PMHx: 18:11 Cerebrovascular accident; Chronic obstructive lung disease; Hypertensive disorder; cm10 Myocardial infarction; Seizure; - Immunization history:: Adult Immunizations up to date. - Infectious Disease History:: Denies. - Social history:: Smoking status: Patient reports the use of cigarette tobacco products, unknown amount. Screenin:46 [facility] ED Fall Risk Assessment (Adult) History of falling in the last 3 months, mt4 including since admission Yes- single mechanical fall (1 pt) Confusion or Disorientation No (0 pts) Intoxicated or Sedated No (0 pts) Impaired Gait Yes (1 pt) Mobility Assist Device Used Yes (1 pt) Altered Elimination No (0 pt) Score/Fall Risk Level 3 or more points = High Risk. Abuse screen: Denies injuries from another. Nutritional screening: No deficits noted. Tuberculosis screening: No symptoms or risk factors identified. Exposure risk/Travel Screening: None identified. Assessment: 19:46 Pain: Complains of pain in chest Pain currently is 10 out of 10 on a pain scale. mt4 Quality of pain is described as sharp. Pain: Pain does not radiate. Pain began suddenly. Neuro: Level of Consciousness is awake, alert, obeys commands, Oriented to person, place, time, situation, Weakness in left Gait is unsteady, Speech is normal, Facial droop on left. Cardiovascular: Capillary refill < 3 seconds. Respiratory: Airway is patent Respiratory effort is unlabored, Respiratory pattern is regular. GI: Abdomen is non-distended. : Denies burning with urination. Derm: Skin is intact, Rash noted that is on buttocks. Musculoskeletal: Capillary refill < 3 seconds, Range of motion: limited in left elbow and left ankle. 20:59 Reassessment: patient arrived with pre-existing PICC line to right upper arm, good mt4 flush and blood return observed. DC with PICC line intact. Vital Signs: 18:10 BP 120 / 87; Pulse 86; Resp 18; Temp 96.6(TE); Pulse Ox 96% on R/A; Weight 79.38 kg; cm10 Height 5 ft. 2 in. ; Pain 10/10; 19:46 BP 133 / 94; Pulse 87; Resp 20 S; Temp 97.4(O); Pain 10/10; mt4 20:26 BP 140 / 103; Pulse 87; Resp 19 S; Temp 97.5(O); Pain 10/10; mt4 20:54 BP 134 / 97; Pulse 80; Resp 22 S; Temp 98.4(O); Pain 4/10; mt4 18:10 Body Mass Index 32.01 (79.38 kg, 157.48 cm) cm10 18:10 Pain Scale: Adult cm10 19:46 Pain Scale: Adult mt4 20:26 Pain Scale: Adult mt4 20:54 Pain Scale: Adult mt4 Ramsay Coma Score: 19:46 Eye Response: spontaneous(4). Motor Response: obeys commands(6). Verbal Response: mt4 oriented(5). Total: 15. ED Course: 17:56 Patient arrived in ED. ra3 17:58 Sallie Wilson is Attending Physician. ci 18:11 Triage completed. cm10 18:12 Arm band placed on Patient placed in waiting room. EKG completed in triage. Results cm10 shown to MD. 18:12 EKG done, by ED staff, reviewed by Sallie Wilson. cm10 18:40 XRAY Chest (1 view) In Process Unspecified. EDMS 19:46 Patient has correct armband on for positive identification. Fall risk band placed. mt4 Placed in gown. Bed in low position. Call light in reach. Side rails up X2. Provided Education on: meds and labs . Client placed on continuous cardiac and pulse oximetry monitoring. NIBP monitoring applied. acid blower on. Pulse ox on. Door closed. Lights dimmed. Warm blanket given. Pillow given. Head of bed elevated. Cleaned of incontinence. 19:46 No provider procedures requiring assistance completed. Patient maintains SpO2 mt4 saturation greater than 95% on room air. Administered Medications: 19:43 Not Given (Patient Refused): aspirinchewable tablet 324 mg PO once; 81 mg tablets x 4 mt4 20:25 Drug: Magnesium PO 800 mg PO once Route: PO; mt4 20:54 Follow up: Response: No adverse reaction mt4 20:25 Drug: hydrOXYzine PO 50 mg PO once Route: PO; mt4 20:54 Follow up: Response: No adverse reaction mt4 20:25 Drug: HYDROcodone-acetaminophen PO 5 mg-325 mg 1 tabs PO once Route: PO; mt4 20:53 Follow up: Response: No adverse reaction mt4 Medication: 19:46 VIS not applicable for this client. mt4 Outcome: 20:15 Discharge ordered by . ci 21:09 Patient left the ED. lg3 Signatures: Dispatcher [employer] EDMS Lauren Heath RN RN lg3 Kelsey Khan RN RN cm10 Sallie Wilson Renea ra3 Tath, Molhaleighc, RN RN mt4
[2024-01-15] MEDS ORDERED: HYDROCODONE/APAP 5/325 MG TAB ONE (20:17)
[2024-01-15] MEDS ORDERED: hydrOXYzine HCL 25 MG TAB ONE (20:17)
[2024-01-15] MEDS ORDERED: MAGNESIUM OXIDE 400 MG TAB ONE (20:17)
[2024-01-15 20:22] LABS: Blood Morphology Comment NOTED (NOT SEEN); Macrocytosis 1+; Platelet Estimate ADEQ; White Blood Cell Scan OK (OK)
[2024-01-15 21:13] VITALS: O2SAT 96
[2024-01-15 21:16] VITALS: BP 134/97; TEMP 98.4
--- NOTE | 2024-01-16 11:08 | EKG ---
Test Date: 2024-01-15 Test Time: 18:05:09 Coremaker: JEANNA MEASUREMENT RESULTS: Intervals: Rate: 91 DE: 166 QRSD: 80 QT: 376 QTc: 462 [place]: P: 66 DE: 166 QRS: 21 T: 147 INTERPRETIVE STATEMENTS: Normal sinus rhythm Left ventricular hypertrophy with repolarization abnormality Abnormal ECG Compared to ECG 01/14/2024 19:59:05 No significant changes Electronically Signed On 01-16-24 11:06:59 CDT by Alan Garay
== END 2024-01-15 21:09 | disposition home or self-care (01) ==
LOC: ER 17:53
DX: R07.9 Chest pain, unspecified (principal); I10 Essential (primary) hypertension; I25.2 Old myocardial infarction; Z86.73 Personal history of transient ischemic attack (TIA), and cerebral infarction without residual deficits
CPT/HCPCS: 36415; 71045; 80048; 83735; 83880; 84484; 85025; 93005; 99285

== ENCOUNTER 2024-01-20 18:44 | Emergency (ER) | payer OTHER ==
[2024-01-20] MEDS ORDERED: DIAZEPAM 5 MG TABLET ONE (20:41)
[2024-01-20] MEDS ORDERED: TRAMADOL HCL 50 MG TAB ONE (20:41)
--- NOTE | 2024-01-20 21:02 | RAD REPORT ---
Procedure: Chest Single View HISTORY: Chest pain COMPARISON: January 15, 2024 FINDINGS: The lungs appear clear of acute infiltrate. No significant pleural effusion noted. The heart is normal size. PICC line's tip in the proximal SVC. Old rib fractures IMPRESSION: No acute abnormality is displayed.
--- NOTE | 2024-01-20 21:05 | RAD REPORT ---
Exam:Humerus Right CLINICAL HISTORY: PICC line insertion FINDINGS: PICC line has been placed into the right arm extending into the proximal SVC
--- NOTE | 2024-01-20 21:17 | EDPHYS ---
Physician Documentation [facility] Name: Geetha Khan Age: 48 yrs Sex: Female : 1975 Arrival Date: 01/20/2024 Time: 18:44 Bed 23 Private MD: ED Physician Michael Grimm HPI: 01/19 19:45 This 48 yrs old Female presents to ER via EMS with complaints of Chest Pain. cp 19:45 The patient or guardian reports chest pain that is located primarily in the anterior cp chest wall. 19:45 Onset: today. The pain does not radiate. Associated signs and symptoms: Pertinent cp negatives: abdominal pain, cough, dizziness, headache, lower extremity swelling, shortness of breath, vomiting. The chest pain is described as constant. Duration: The patient or guardian reports a single episode, that is still ongoing. Severity of pain: in the emergency department the pain is unchanged despite EMS interventions. Patient reports to nurse that she was concerned PICC line was kinked. Historical: - Allergies: 19:39 Aspirin; cm10 19:39 CRANBERRY; cm10 19:39 FISH PRODUCT DERIVATIVES; cm10 19:39 GRAPEFRUIT; cm10 19:39 SHELLFISH; cm10 - PMHx: 19:39 Cerebrovascular accident; Chronic obstructive lung disease; Hypertensive disorder; cm10 Myocardial infarction; Seizure; - Immunization history:: Adult Immunizations up to date. - Infectious Disease History:: Denies. - Social history:: Smoking status: Patient reports the use of cigarette tobacco products, denies chronic smoking, but will smoke occasionally. ROS: 19:50 Constitutional: Negative for chills, fever, poor PO intake, cp 19:50 Eyes: Negative for injury, pain, redness, and discharge, cp 19:50 Neck: Negative for pain with movement, pain at rest, stiffness, 19:50 Cardiovascular: Positive for chest pain, Negative for edema, palpitations, 19:50 Respiratory: Negative for cough, shortness of breath, wheezing, 19:50 Abdomen/GI: Negative for abdominal pain, vomiting, diarrhea, constipation, 19:50 Back: Negative for pain at rest, pain with movement, 19:50 Neuro: Negative for altered mental status, dizziness, headache, weakness, 19:50 All other systems are negative, Exam: 19:50 ECG was reviewed by the Attending Physician. cp 19:55 Constitutional: The patient appears in no acute distress, alert, awake, cp non-diaphoretic, non-toxic, well developed, well nourished, 19:55 Head/Face: Normocephalic, atraumatic. cp 19:55 Eyes: Periorbital structures: appear normal, Conjunctiva: normal, no exudate, no injection, Sclera: no appreciated abnormality, Lids and lashes: appear normal, bilaterally, 19:55 ENT: External ear(s): are unremarkable, Nose: is normal, Mouth: Lips: moist, Oral mucosa: pink and intact, moist, Posterior pharynx: Airway: no evidence of obstruction, patent, 19:55 Chest/axilla: Inspection: normal, 19:55 Cardiovascular: Rate: normal, Rhythm: regular, Edema: is not appreciated, JVD: is not appreciated, 19:55 Respiratory: the patient does not display signs of respiratory distress, Respirations: normal, no use of accessory muscles, no retractions, labored breathing, is not present, Breath sounds: are clear throughout, no decreased breath sounds, no stridor, no wheezing, 19:55 Abdomen/GI: Inspection: abdomen appears normal, Palpation: abdomen is soft and non-tender, 19:55 Back: pain, is absent, 19:55 Neuro: Orientation: to person, place \T\ time. Mentation: is normal, Vital Signs: 19:37 BP 125 / 93; Pulse 88; Resp 16; Temp 98.8(TE); Pulse Ox 100% ; Weight 79.38 kg; Height cm10 5 ft. 2 in. ; Pain 10/10; 21:30 BP 122 / 88; Pulse 86; Resp 15; Pulse Ox 100% ; vc1 19:37 Body Mass Index 32.01 (79.38 kg, 157.48 cm) cm10 19:37 Pain Scale: Adult cm10 MDM: 19:49 Medical Screening Exam initiated juan diego 21:15 Data reviewed: vital signs, nurses notes, lab test result(s), EKG, radiologic studies, cp plain films, and as a result, I will discharge patient. 21:15 Differential diagnosis: acute myocardial infarction, acute pericarditis, anxiety, cp pneumonia, pneumothorax, chronic pain. I considered the following discharge prescriptions or medication management in the emergency department Medications were administered in the Emergency Department. See MAR. Counseling: I had a detailed discussion with the patient and/or guardian regarding the historical points, exam findings, and any diagnostic results supporting the discharge/admit diagnosis, lab results, radiology results, to return to the emergency department if symptoms worsen or persist or if there are any questions or concerns that arise at home. Response to treatment: the patient's symptoms have markedly improved after treatment, and as a result, I will discharge patient. Special discussion: Based on the patient's history, exam, and Dx evaluation, there is no indication for emergent intervention or inpatient Tx. It is understood by the patient/guardian that if the Sx's persist or worsen they need to return immediately for re-evaluation. 01/19 19:17 Order name: Troponin High Sensitivity; Complete Time: 20:49 cp 01/19 20:49 Interpretation: Reviewed. 01/19 19:43 Order name: XRAY Chest (1 view); Complete Time: 21:21 cp 01/19 21:21 Interpretation: Report review. 01/19 19:43 Order name: XRAY Humerus RIGHT; Complete Time: 21:21 cp 01/19 21:21 Interpretation: Report reviewed. 01/19 19:17 Order name: EKG; Complete Time: 19:17 cp 01/19 19:17 Order name: EKG - Nurse/Tech; Complete Time: 19:44 cp EC:50 Rate is 87 beats/min. Rhythm is regular. CO interval is normal. QRS interval is normal. cp QT interval is normal. T waves are Inverted in leads I, aVL, V6. Interpreted by me. Reviewed by me. Administered Medications: 20:48 Drug: traMADol PO 50 mg PO once Route: PO; vc1 21:15 Follow up: Response: No adverse reaction; Marked relief of symptoms; Pain is decreased vc1 20:48 Drug: Diazepam PO 5 mg PO once Route: PO; vc1 21:30 Follow up: Response: No adverse reaction; Marked relief of symptoms; Anxiety decreased vc1 Disposition Summary: 01/20/24 21:16 Discharge Ordered Notes: Location: Home cp Problem: new cp Symptoms: have improved cp Condition: Stable cp Diagnosis - Chest pain, unspecified cp Followup: cp - With: Private Physician - When: 2 - 3 days - Reason: Recheck today's complaints Discharge Instructions: - Discharge Summary Sheet cp - Nonspecific Chest Pain, Adult cp Forms: - Medication Reconciliation Form cp - Antibiotic Education cp - Prescription Opioid Use cp - Patient Portal Instructions cp - Leadership Thank You Letter cp Signatures: Dispatcher [employer] EDMichael Salas MD MD cha Page, Corey, PA Syeda Conde cp, RN RN vc1 Kelsey Khan RN RN cm10 Corrections: (The following items were deleted from the chart) 19:17 19:17 Troponin High Sensitivity+C.LAB.BRZ ordered. EDMS EDMS
--- NOTE | 2024-01-20 21:17 | ER ---
Nurse's Notes [facility] Name: Geetha Khan Age: 48 yrs Sex: Female : 1975 Arrival Date: 01/20/2024 Time: 18:44 Bed 23 Private MD: Diagnosis: Chest pain, unspecified Presentation: 01/19 19:37 Chief complaint: Patient states: Chest pain onset today at 1600. Pt states, "my pain cm10 started when my gave me my medications in my picc line.". Coronavirus screen: Client denies travel out of the [place] in the last 14 days. Ebola Screen: Patient denies travel to an Ebola-affected area in the 21 days before illness onset. Initial Sepsis Screen: Does the patient meet any 2 criteria? No. Patient's initial sepsis screen is negative. Does the patient have a suspected source of infection? No. Patient's initial sepsis screen is negative. Risk Assessment: Do you want to hurt yourself or someone else? Patient reports no desire to harm self or others. Onset of symptoms was January 20, 2024. 19:37 Method Of Arrival: EMS: [facility] cm10 19:37 Acuity: CORRINA 2 cm10 Triage Assessment: 19:40 General: Appears in no apparent distress. comfortable, Behavior is calm, cooperative. cm10 Neuro: No deficits noted. Level of Consciousness is awake, alert, obeys commands, Oriented to person, place, time, situation, Appropriate for age. Respiratory: No deficits noted. Airway is patent Respiratory effort is even, unlabored, Respiratory pattern is regular, symmetrical. Historical: - Allergies: 19:39 Aspirin; cm10 19:39 CRANBERRY; cm10 19:39 FISH PRODUCT DERIVATIVES; cm10 19:39 GRAPEFRUIT; cm10 19:39 SHELLFISH; cm10 - PMHx: 19:39 Cerebrovascular accident; Chronic obstructive lung disease; Hypertensive disorder; cm10 Myocardial infarction; Seizure; - Immunization history:: Adult Immunizations up to date. - Infectious Disease History:: Denies. - Social history:: Smoking status: Patient reports the use of cigarette tobacco products, denies chronic smoking, but will smoke occasionally. Screenin:00 [facility] ED Fall Risk Assessment (Adult) History of falling in the last 3 months, vc1 including since admission Yes- fall prone (multiple falls) (3 pts) Confusion or Disorientation No (0 pts) Intoxicated or Sedated No (0 pts) Impaired Gait Yes (1 pt) Mobility Assist Device Used Yes (1 pt) Altered Elimination Yes (1 pt) Score/Fall Risk Level 3 or more points = High Risk Oriented to surroundings, Maintained a safe environment, Educated pt \\T\\ family on fall prevention, incl call for assistance when getting out of bed. Abuse screen: Denies threats or abuse. Nutritional screening: No deficits noted. Tuberculosis screening: No symptoms or risk factors identified. Assessment: 21:00 General: Appears in no apparent distress. uncomfortable, Behavior is cooperative, vc1 anxious. Pain: Complains of pain in chest Pain does not radiate. Pain began suddenly. Neuro: Level of Consciousness is awake, alert, obeys commands, Oriented to person, place, time, situation, Appropriate for age. Cardiovascular: Chest pain. 21:30 Reassessment: Patient and/or family updated on plan of care and expected duration. Pain vc1 level reassessed. Patient is alert, oriented x 3, equal unlabored respirations, skin warm/dry/pink. Patient states feeling better. Patient states symptoms have improved. Vital Signs: 19:37 BP 125 / 93; Pulse 88; Resp 16; Temp 98.8(TE); Pulse Ox 100% ; Weight 79.38 kg; Height cm10 5 ft. 2 in. ; Pain 10/10; 21:30 BP 122 / 88; Pulse 86; Resp 15; Pulse Ox 100% ; vc1 19:37 Body Mass Index 32.01 (79.38 kg, 157.48 cm) cm10 19:37 Pain Scale: Adult cm10 ED Course: 18:58 Patient arrived in ED. mr 19:00 Michael Nguyen PA is PHCP. cp 19:00 Michael Grimm MD is Attending Physician. cp 19:39 Triage completed. cm10 19:40 Arm band placed on right wrist. Patient placed in waiting room. EKG completed in cm10 triage. Results shown to . 19:41 EKG done, by ED staff, reviewed by Michael LEBRON. cm10 19:48 Troponin High Sensitivity Sent. cm10 19:48 Initial lab(s) drawn, by nm, sent to lab. cm10 20:51 XRAY Chest (1 view) In Process Unspecified. EDMS 20:51 XRAY Humerus RIGHT In Process Unspecified. EDMS 21:30 Patient has correct armband on for positive identification. Bed in low position. Call vc1 light in reach. Adult w/ patient. monitor technician on. Pulse ox on. NIBP on. 21:30 Provided Education on: f/u with PCP. vc1 21:30 No provider procedures requiring assistance completed. Patient did not have IV access vc1 during this emergency room visit. Patient maintains SpO2 saturation greater than 95% on room air. Administered Medications: 20:48 Drug: traMADol PO 50 mg PO once Route: PO; vc1 21:15 Follow up: Response: No adverse reaction; Marked relief of symptoms; Pain is decreased vc1 20:48 Drug: Diazepam PO 5 mg PO once Route: PO; vc1 21:30 Follow up: Response: No adverse reaction; Marked relief of symptoms; Anxiety decreased vc1 Medication: 21:30 VIS not applicable for this client. vc1 Outcome: 21:16 Discharge ordered by MD. cp 21:30 Patient left the ED. vc1 21:30 Discharged to home via wheelchair, with significant other, 21:30 Condition: good 21:30 Discharge instructions given to patient, Instructed on discharge instructions, follow up and referral plans. Demonstrated understanding of instructions, follow-up care, Signatures: Dispatcher [employer] EDWA SalasClair, Mauro Reg mr Michael Nguyen, Syeda Lee cp, RN RN vc1 Kelsey Khan RN RN cm10 Corrections: (The following items were deleted from the chart) 19:41 19:37 Pulse 88bpm; Resp 16bpm; Pulse Ox 100%; Temp 98.8F Temporal; 79.38 kg; Height 5 cm10 ft. 2 in.; BMI: 32.0; Pain 10/10, Adult; cm10 01/20 00:44 00:42 Condition: good vc1 vc1 00:44 00:42 Discharged to home via wheelchair, with significant other, vc1 vc1 00:44 00:42 Discharge instructions given to patient, Instructed on discharge instructions, vc1 follow up and referral plans. Demonstrated understanding of instructions, follow-up care, vc1 00:44 00:43 Patient left the ED. vc1 vc1
[2024-01-21 02:23] VITALS: TEMP 98.8; O2SAT 100
[2024-01-21 02:24] VITALS: BP 122/88
--- NOTE | 2024-01-21 12:18 | EKG ---
Test Date: 2024-01-20 Test Time: 19:44:09 Stable Attendant: KATRINA MEASUREMENT RESULTS: Intervals: Rate: 87 MN: 176 QRSD: 86 QT: 368 QTc: 442 [place]: P: 51 MN: 176 QRS: 5 T: 131 INTERPRETIVE STATEMENTS: Normal sinus rhythm Left ventricular hypertrophy with repolarization abnormality Abnormal ECG Compared to ECG 01/15/2024 18:05:09 No significant changes Electronically Signed On 01-21-24 12:16:20 [employer] by Alan Garay
== END 2024-01-21 00:43 | disposition home or self-care (01) ==
LOC: ER 18:44
DX: R07.9 Chest pain, unspecified (principal); J44.9 Chronic obstructive pulmonary disease, unspecified; I10 Essential (primary) hypertension; I25.2 Old myocardial infarction; F17.210 Nicotine dependence, cigarettes, uncomplicated
CPT/HCPCS: 36415; 71045; 84484; 93005; 99285

== ENCOUNTER 2024-01-25 18:15 | Emergency (ER) | payer OTHER ==
[2024-01-25] MEDS ORDERED: DIAZEPAM 5 MG TABLET ONE (19:21)
--- NOTE | 2024-01-25 19:59 | EDPHYS ---
Physician Documentation [facility] Name: Geetha Khan Age: 48 yrs Sex: Female : 1975 Arrival Date: 01/25/2024 Time: 18:15 Bed 8 Private MD: ED Physician Russell Rodriguez HPI: 01/24 19:09 This 48 yrs old Female presents to ER via EMS with complaints of Chest Pain > 30 y/o. rt 19:09 Patient presents to the ED with chest pain for the past 3 days. This is similar to her rt prior episodes of chest pain. Denies other acute complaints, symptoms are moderate in severity, no other aggravating or alleviating factors.. Historical: - Allergies: 18:21 Aspirin; ko1 18:21 CRANBERRY; ko1 18:21 FISH PRODUCT DERIVATIVES; ko1 18:21 GRAPEFRUIT; ko1 18:21 SHELLFISH; ko1 - PMHx: 18:21 Cerebrovascular accident; Hypertensive disorder; Myocardial infarction; Chronic ko1 obstructive lung disease; Seizure; - PSHx: 18:21 Unable to Obtain; ko1 - Immunization history:: Adult Immunizations up to date. - Infectious Disease History:: Denies. - Social history:: Smoking status: Patient reports the use of cigarette tobacco products, smokes one pack cigarettes per day. - Family history:: not pertinent. ROS: 19:09 Constitutional: Negative for fever, chills, and weight loss, Respiratory: Negative for rt shortness of breath, cough, wheezing, and pleuritic chest pain, Abdomen/GI: Negative for abdominal pain, nausea, vomiting, diarrhea, and constipation, MS/Extremity: Negative for injury and deformity, Skin: Negative for injury, rash, and discoloration, Neuro: Negative for headache, weakness, numbness, tingling, and seizure, 19:09 Cardiovascular: Positive for chest pain, Negative for edema, Exam: 19:09 Constitutional: This is a well developed, well nourished patient who is awake, alert, rt and in no acute distress. Head/Face: Normocephalic, atraumatic. Chest/axilla: Normal chest wall appearance and motion. Nontender with no deformity. No lesions are appreciated. Cardiovascular: Regular rate and rhythm with a normal S1 and S2. No gallops, murmurs, or rubs. Normal PMI, no JVD. No pulse deficits. Respiratory: Lungs have equal breath sounds bilaterally, clear to auscultation and percussion. No rales, rhonchi or wheezes noted. No increased work of breathing, no retractions or nasal flaring. Abdomen/GI: Soft, non-tender, with normal bowel sounds. No distension or tympany. No guarding or rebound. No evidence of tenderness throughout. Skin: Warm, dry with normal turgor. Normal color with no rashes, no lesions, and no evidence of cellulitis. MS/ Extremity: Pulses equal, no cyanosis. Neurovascular intact. Full, normal range of motion. Vital Signs: 18:19 BP 138 / 84; Pulse 108; Resp 15; Temp 97; Pulse Ox 99% on R/A; ko1 19:00 BP 142 / 103; Pulse 77; Resp 20; Temp 97; Pulse Ox 100% ; Pain 10/10; bm8 20:03 BP 134 / 95; Pulse 84; Resp 17; Temp 97.6; Pulse Ox 99% ; jj7 19:00 Pain Scale: Adult bm8 [place] Coma Score: 19:00 Eye Response: spontaneous(4). Motor Response: obeys commands(6). Verbal Response: bm8 oriented(5). Total: 15. MDM: 18:29 Medical Screening Exam initiated rt 19:05 ED course: Patient signed out to me by previous physician, in brief arrives today for ec2 chest pain, patient with previous history of similar types of chest pain, significant anxiety. Plans to follow-up with EKG as well as troponin and reassess.. 19:21 ED course: EKG independently reviewed and interpreted by me, shows normal sinus rhythm, ec2 rate of 72, no acute ST segment elevations, normals are nonactionable, nonspecific T wave abnormalities noted in the lateral leads which appear unchanged compared to previous.. 19:58 Data reviewed: vital signs. ED course: Patient with reassuring troponin. Will discharge ec2 home. Patient with improving anxiety. Return precautions given.. 01/24 18:35 Order name: Troponin High Sensitivity; Complete Time: 19:58 rt 01/24 18:35 Order name: EKG; Complete Time: 18:35 rt 01/24 18:35 Order name: EKG - Nurse/Tech; Complete Time: 19:19 rt Administered Medications: 19:26 Drug: Diazepam PO 10 mg PO once Route: PO; bm8 20:07 Follow up: Response: Marked relief of symptoms jj7 Disposition Summary: 01/25/24 19:58 Discharge Ordered Notes: Location: Home ec2 Condition: Stable ec2 Diagnosis - Anxiety disorder, unspecified ec2 - Chest pain, unspecified ec2 Followup: ec2 - With: Private Physician - When: - Reason: Re-evaluation by your physician Discharge Instructions: - Discharge Summary Sheet ec2 - Nonspecific Chest Pain, Adult ec2 Forms: - Medication Reconciliation Form ec2 - Antibiotic Education ec2 - Prescription Opioid Use ec2 - Patient Portal Instructions ec2 - Leadership Thank You Letter ec2 Signatures: Dispatcher [employer] Toya Gonzalez, RN RN ko1 Kye De Anda MD MD rt Russell Rodriguez MD MD ec2 Rene Baca RN RN bm8 Ernestine Nielson RN jj7
--- NOTE | 2024-01-25 19:59 | ER ---
Nurse's Notes [facility] Name: Geetha Khan Age: 48 yrs Sex: Female : 1975 Arrival Date: 01/25/2024 Time: 18:15 Bed 8 Private MD: Diagnosis: Anxiety disorder, unspecified;Chest pain, unspecified Presentation: 01/24 18:19 Chief complaint: EMS states: chest pain for 3 days. Coronavirus screen: At this time, ko1 the client does not indicate any symptoms associated with coronavirus-19. Ebola Screen: No symptoms or risks identified at this time. Initial Sepsis Screen: Does the patient meet any 2 criteria? No. Patient's initial sepsis screen is negative. Does the patient have a suspected source of infection? No. Patient's initial sepsis screen is negative. Risk Assessment: Do you want to hurt yourself or someone else? Patient reports no desire to harm self or others. Onset of symptoms is unknown. 18:19 Method Of Arrival: EMS: [facility] ko1 18:19 Acuity: CORRINA 3 ko1 Triage Assessment: 18:21 General: Appears in no apparent distress. Behavior is calm, appropriate for age. Pain: ko1 Complains of pain in chest. Cardiovascular: Reports chest pain. Historical: - Allergies: 18:21 Aspirin; ko1 18:21 CRANBERRY; ko1 18:21 FISH PRODUCT DERIVATIVES; ko1 18:21 GRAPEFRUIT; ko1 18:21 SHELLFISH; ko1 - PMHx: 18:21 Cerebrovascular accident; Hypertensive disorder; Myocardial infarction; Chronic ko1 obstructive lung disease; Seizure; - PSHx: 18:21 Unable to Obtain; ko1 - Immunization history:: Adult Immunizations up to date. - Infectious Disease History:: Denies. - Social history:: Smoking status: Patient reports the use of cigarette tobacco products, smokes one pack cigarettes per day. - Family history:: not pertinent. Screenin:00 [facility] ED Fall Risk Assessment (Adult) History of falling in the last 3 months, bm8 including since admission No falls in past 3 months (0 pts) Confusion or Disorientation No (0 pts) Intoxicated or Sedated No (0 pts) Impaired Gait Yes (1 pt) Mobility Assist Device Used Yes (1 pt) Altered Elimination Yes (1 pt) Score/Fall Risk Level 3 or more points = High Risk Oriented to surroundings, Maintained a safe environment, Educated pt \T\ family on fall prevention, incl call for assistance when getting out of bed, Assessed \T\ reinforced patient's understanding of fall precautions, Hourly rounding (assess needs \T\ fall precautionary measures) done, Used ambulatory aids as needed (educated on \T\ assisted with), Used gait belt as appropriate Implemented a Fall Risk Plan of Care. Abuse screen: Denies threats or abuse. Nutritional screening: No deficits noted. Tuberculosis screening: No symptoms or risk factors identified. Assessment: 19:00 Reassessment: Patient appears in no apparent distress at this time. Patient and/or bm8 family updated on plan of care and expected duration. Pain level reassessed. Patient is alert, oriented x 3, equal unlabored respirations, skin warm/dry/pink. General: Appears in no apparent distress. comfortable, Behavior is calm, cooperative, appropriate for age. Pain: Complains of pain in chest Pain does not radiate. Pain currently is 10 out of 10 on a pain scale. Pain began 2-3 days ago. Neuro: Level of Consciousness is awake, alert, obeys commands, Oriented to person, place, time, situation, Appropriate for age. Cardiovascular: Reports chest pain, Heart tones S1 S2 present Capillary refill < 3 seconds in bilateral fingers Patient's skin is warm and dry. Rhythm is sinus rhythm. Respiratory: Airway is patent Trachea midline Respiratory effort is even, unlabored, Respiratory pattern is regular, symmetrical, Breath sounds are clear bilaterally. GI: No signs and/or symptoms were reported involving the gastrointestinal system. : No signs and/or symptoms were reported regarding the genitourinary system. EENT: No signs and/or symptoms were reported regarding the EENT system. Derm: No signs and/or symptoms reported regarding the dermatologic system. Musculoskeletal: No signs and/or symptoms reported regarding the musculoskeletal system. Vital Signs: 18:19 BP 138 / 84; Pulse 108; Resp 15; Temp 97; Pulse Ox 99% on R/A; ko1 19:00 BP 142 / 103; Pulse 77; Resp 20; Temp 97; Pulse Ox 100% ; Pain 10/10; bm8 20:03 BP 134 / 95; Pulse 84; Resp 17; Temp 97.6; Pulse Ox 99% ; jj7 19:00 Pain Scale: Adult bm8 [place] Coma Score: 19:00 Eye Response: spontaneous(4). Motor Response: obeys commands(6). Verbal Response: bm8 oriented(5). Total: 15. ED Course: 18:18 Patient arrived in ED. ko1 18:21 Triage completed. ko1 18:21 Arm band placed on right wrist. Patient placed in an exam room, on a stretcher, on ko1 threat monitoring analyst, on pulse oximetry, Patient notified of wait time. 18:29 Kye De Anda MD is Attending Physician. rt 19:00 Patient has correct armband on for positive identification. Bed in low position. Call bm8 light in reach. Side rails up X2. Client placed on continuous cardiac and pulse oximetry monitoring. NIBP monitoring applied. monitoring specialist on. Pulse ox on. NIBP on. Door closed. Noise minimized. Visitors limited. Warm blanket given. Pillow given. Verbal reassurance given. Head of bed. 19:00 No provider procedures requiring assistance completed. Initial lab(s) drawn, by nv, bm8 sent to lab. Missed attempt(s): 22 gauge in left forearm. Bleeding controlled, band aid applied, catheter tip intact. Patient maintains SpO2 saturation greater than 95% on room air. 19:03 Attending Physician role handed off by Kye De Anda MD ec2 19:03 Russell Rodriguez MD is Attending Physician. ec2 19:18 Rene Baca, RN is Primary Nurse. bm8 20:03 Provided Education on: D/C INSTRUCTIONS. jj7 20:03 Patient did not have IV access during this emergency room visit. jj7 Administered Medications: 19:26 Drug: Diazepam PO 10 mg PO once Route: PO; bm8 20:07 Follow up: Response: Marked relief of symptoms jj7 Medication: 19:00 VIS not applicable for this client. bm8 Outcome: 19:58 Discharge ordered by . ec2 20:03 Discharged to home via wheelchair, jj7 20:03 Condition: improved 20:03 Discharge instructions given to patient, Instructed on discharge instructions, Demonstrated understanding of instructions, 20:06 Patient left the ED. j7 Signatures: Toya Huerta RN RN ko1 Ernestine Nielson RN RN j7 Kye De Anda MD MD rt Russell Rodriguez MD MD ec2 Rene Baca, RN RN bm8
[2024-01-25 20:13] VITALS: BP 134/95; TEMP 97.6; O2SAT 99
--- NOTE | 2024-01-26 12:40 | EKG ---
Test Date: 2024-01-25 Test Time: 19:08:13 Water Sponger: BEN MEASUREMENT RESULTS: Intervals: Rate: 72 NV: 180 QRSD: 82 QT: 438 QTc: 479 [place]: P: 27 NV: 180 QRS: -2 T: 146 INTERPRETIVE STATEMENTS: Normal sinus rhythm Left ventricular hypertrophy with repolarization abnormality Abnormal ECG Compared to ECG 01/20/2024 19:44:09 No significant changes Electronically Signed On 01-26-24 12:38:45 BAG GRADER by Alan Garay
== END 2024-01-25 20:06 | disposition home or self-care (01) ==
LOC: ER 18:15
DX: F41.9 Anxiety disorder, unspecified (principal); I10 Essential (primary) hypertension; I25.2 Old myocardial infarction; Z86.73 Personal history of transient ischemic attack (TIA), and cerebral infarction without residual deficits; F17.210 Nicotine dependence, cigarettes, uncomplicated
CPT/HCPCS: 36415; 84484; 93005; 99284

== ENCOUNTER 2024-02-25 19:11 | Emergency (ER) | payer OTHER, SELFPAY ==
[2024-02-25] MEDS ORDERED: IBUPROFEN 400 MG TAB ONE (19:54)
--- NOTE | 2024-02-25 19:54 | ER ---
Nurse's Notes [facility] Name: Geetha Khan Age: 48 yrs Sex: Female : 1975 Arrival Date: 02/25/2024 Time: 19:11 Bed IW4 Private MD: Diagnosis: Chronic chest pain Presentation: 02/24 19:21 Method Of Arrival: EMS: [facility] cm10 19:54 Chief complaint: Patient states: CHEST PAIN ONSET AT 1700. PT REPORTS THAT SHE IS OUT cm10 OF HER IBUPROFEN THAT HELPS WITH THE PAIN. Coronavirus screen: Client denies travel out of the [place] in the last 14 days. Ebola Screen: Patient denies travel to an Ebola-affected area in the 21 days before illness onset. No symptoms or risks identified at this time. Initial Sepsis Screen: Does the patient meet any 2 criteria? No. Patient's initial sepsis screen is negative. Does the patient have a suspected source of infection? No. Patient's initial sepsis screen is negative. Risk Assessment: Do you want to hurt yourself or someone else? Patient reports no desire to harm self or others. Onset of symptoms was February 25, 2024. 19:54 Acuity: CORRINA 4 cm10 Triage Assessment: 19:56 General: Appears in no apparent distress. comfortable, Behavior is calm, cooperative. cm10 Pain: Complains of pain in chest Pain currently is 10 out of 10 on a pain scale. Neuro: No deficits noted. Level of Consciousness is awake, alert, obeys commands, Oriented to person, place, time, situation, Appropriate for age. Respiratory: No deficits noted. Airway is patent Respiratory effort is even, unlabored, Respiratory pattern is regular, symmetrical. Historical: - Allergies: 19:55 Aspirin; cm10 19:55 CRANBERRY; cm10 19:55 FISH PRODUCT DERIVATIVES; cm10 19:55 GRAPEFRUIT; cm10 19:55 SHELLFISH; cm10 - PMHx: 19:55 Cerebrovascular accident; Chronic obstructive lung disease; Hypertensive disorder; cm10 Myocardial infarction; Seizure; - Immunization history:: Adult Immunizations up to date. - Infectious Disease History:: Denies. - Social history:: Smoking status: Patient reports the use of cigarette tobacco products, smokes one pack cigarettes per day. Screenin:56 [facility] ED Fall Risk Assessment (Adult) History of falling in the last 3 months, cm10 including since admission No falls in past 3 months (0 pts) Confusion or Disorientation No (0 pts) Intoxicated or Sedated No (0 pts) Impaired Gait No (0 pts) Mobility Assist Device Used No (0 pt) Altered Elimination No (0 pt) Score/Fall Risk Level 0 - 2 = Low Risk Oriented to surroundings, Maintained a safe environment, Hourly rounding (assess needs \T\ fall precautionary measures) done. Abuse screen: Denies threats or abuse. Denies injuries from another. Nutritional screening: No deficits noted. Tuberculosis screening: No symptoms or risk factors identified. Vital Signs: 19:54 BP 157 / 86; Pulse 87; Resp 16; Temp 97.1(IR); Pulse Ox 97% on R/A; Weight 56.7 kg; cm10 Height 5 ft. 2 in. ; Pain 10/10; 19:54 Body Mass Index 22.86 (56.70 kg, 157.48 cm) cm10 19:54 Pain Scale: Adult cm10 ED Course: 19:18 Patient arrived in ED. sb4 19:18 Kalli Bradshaw PA-C is PHCP. sb4 19:18 Hoa Eddy MD is Attending Physician. sb4 19:55 Triage completed. cm10 19:56 Arm band placed on right wrist. Patient placed in waiting room. cm10 19:57 Patient has correct armband on for positive identification. Provided Education on: cm10 FOLLOW-UP INSTRUCTIONS. 19:57 No provider procedures requiring assistance completed. Patient did not have IV access cm10 during this emergency room visit. Administered Medications: 20:05 Drug: Ibuprofen PO 800 mg PO once Route: PO; cm10 20:05 Follow up: Response: Medication administered at discharge. cm10 Medication: 19:56 VIS not applicable for this client. cm10 Outcome: 19:53 Discharge ordered by . sb4 20:05 Discharged to home via wheelchair, cm10 20:05 Condition: good 20:05 Discharge instructions given to patient, Instructed on discharge instructions, follow up and referral plans. Demonstrated understanding of instructions, follow-up care, 20:05 Patient left the ED. cm10 Signatures: Kalli Bradshaw PA-C PA-C sb4 Kelsey Khan RN RN cm10
--- NOTE | 2024-02-25 19:54 | EDPHYS ---
Physician Documentation [facility] Name: Geetha Khan Age: 48 yrs Sex: Female : 1975 Arrival Date: 02/25/2024 Time: 19:11 Bed IW4 Private MD: ED Physician Hoa Eddy HPI: 02/24 22:05 This 48 yrs old Female presents to ER via EMS with complaints of chronic pain. sb4 22:05 Patient presents today with complaints of her chest pain that is chronic in nature. sb4 States that she has been taking 800 mg ibuprofen as needed which helps significantly. However, she states that her took it to work with her so she did not have it at home to take. Historical: - Allergies: 19:55 Aspirin; cm10 19:55 CRANBERRY; cm10 19:55 FISH PRODUCT DERIVATIVES; cm10 19:55 GRAPEFRUIT; cm10 19:55 SHELLFISH; cm10 - PMHx: 19:55 Cerebrovascular accident; Chronic obstructive lung disease; Hypertensive disorder; cm10 Myocardial infarction; Seizure; - Immunization history:: Adult Immunizations up to date. - Infectious Disease History:: Denies. - Social history:: Smoking status: Patient reports the use of cigarette tobacco products, smokes one pack cigarettes per day. ROS: 22:05 Constitutional: Negative for fever, chills, and weight loss, sb4 22:05 Cardiovascular: Positive for chest pain, 22:05 All other systems are negative, Exam: 22:05 Constitutional: This is a well developed, well nourished patient who is awake, alert, sb4 and in no acute distress. Head/Face: Normocephalic, atraumatic. Eyes: Extra-ocular motions intact. Periorbital areas with no swelling, redness, or edema. ENT: Mucous membranes moist. Respiratory: No increased work of breathing, no retractions or nasal flaring. Skin: Warm, dry with normal turgor. Normal color with no rashes, no lesions, and no evidence of cellulitis. Vital Signs: 19:54 BP 157 / 86; Pulse 87; Resp 16; Temp 97.1(IR); Pulse Ox 97% on R/A; Weight 56.7 kg; cm10 Height 5 ft. 2 in. ; Pain 10/; 19:54 Body Mass Index 22.86 (56.70 kg, 157.48 cm) cm10 19:54 Pain Scale: Adult cm10 MDM: 19:53 Medical Screening Exam initiated sb4 22:06 Data reviewed: vital signs, nurses notes, EMS record, and as a result, I will discharge sb4 patient. 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 Administered Medications: 20:05 Drug: Ibuprofen PO 800 mg PO once Route: PO; cm10 20:05 Follow up: Response: Medication administered at discharge. cm10 Disposition Summary: 02/25/24 19:53 Discharge Ordered Notes: Location: Home sb4 Problem: an ongoing problem sb4 Symptoms: have improved sb4 Condition: Stable sb4 Diagnosis - Chronic chest pain sb4 Followup: sb4 - With: Private Physician - When: 2 - 3 days - Reason: Recheck today's complaints, Re-evaluation by your physician Discharge Instructions: - Discharge Summary Sheet sb4 - Chronic Pain, Adult sb4 Forms: - Patient Portal Instructions sb4 - Leadership Thank You Letter sb4 Signatures: Kalli Bradshaw PA-C PA-C sb4 Kelsey Khan, RN RN cm10
[2024-02-25 20:28] VITALS: BP 157/86; TEMP 97.1; O2SAT 97
== END 2024-02-25 20:05 | disposition home or self-care (01) ==
LOC: ER 19:11
DX: R07.9 Chest pain, unspecified (principal); I10 Essential (primary) hypertension; I25.2 Old myocardial infarction; J44.9 Chronic obstructive pulmonary disease, unspecified; F17.210 Nicotine dependence, cigarettes, uncomplicated; Z86.73 Personal history of transient ischemic attack (TIA), and cerebral infarction without residual deficits
CPT/HCPCS: 99283

== ENCOUNTER 2024-02-26 19:31 | Emergency (ER) | payer OTHER, SELFPAY ==
--- NOTE | 2024-02-26 20:48 | EDPHYS ---
Physician Documentation [facility] Name: Geetha Khan Age: 48 yrs Sex: Female : 1975 Arrival Date: 02/26/2024 Time: 19:31 Bed DX3 Private MD: ED Physician Uriel Cannon HPI: 02/25 20:03 This 48 yrs old Female presents to ER via EMS with complaints of Chest Pain. sp4 Historical: - Allergies: 19:50 Aspirin; tm6 19:50 CRANBERRY; tm6 19:50 FISH PRODUCT DERIVATIVES; tm6 19:50 GRAPEFRUIT; tm6 19:50 SHELLFISH; tm6 - PMHx: 19:50 Cerebrovascular accident; Chronic obstructive lung disease; Hypertensive disorder; tm6 Myocardial infarction; Seizure; - PSHx: 19:50 None; tm6 - Immunization history:: Flu vaccine is up to date. - Infectious Disease History:: Denies. - Social history:: Smoking status: Patient reports the use of cigarette tobacco products, smokes one-half pack cigarettes per day. Vital Signs: 20:03 BP 139 / 98; Pulse 82; Resp 18; Temp 97.9(TE); Pulse Ox 100% on R/A; Weight 56.7 kg; rv1 Height 5 ft. 2 in. ; 20:03 Body Mass Index 22.86 (56.70 kg, 157.48 cm) rv1 MDM: 20:09 Medical Screening Exam initiated sp4 02/25 20:20 Order name: EKG; Complete Time: 20:20 sp4 Administered Medications: 21:00 Drug: HYDROcodone-acetaminophen PO 5 mg-325 mg 2 tabs PO once Route: PO; ha1 21:13 Follow up: Response: No adverse reaction; Marked relief of symptoms ha1 21:00 Drug: Diazepam PO 5 mg PO once Route: PO; ha1 21:13 Follow up: Response: No adverse reaction; Marked relief of symptoms ha1 21:00 Drug: Ketorolac PO 10 mg PO once Route: PO; ha1 21:13 Follow up: Response: No adverse reaction; Marked relief of symptoms ha1 21:00 Drug: Dextromethorphan-Guaifenesin PO Liquid 10 mg-100 mg/5 mL 10 ml PO once Route: PO; ha1 21:13 Follow up: Response: No adverse reaction; Marked relief of symptoms ha1 Disposition Summary: 02/26/24 20:48 Discharge Ordered Notes: Location: Home sp4 Problem: new sp4 Symptoms: have improved sp4 Condition: Stable sp4 Diagnosis - Chest pain, unspecified sp4 - Acute anxiety sp4 Followup: sp4 - With: Private Physician - When: 7 - 10 days - Reason: Recheck today's complaints Discharge Instructions: - Discharge Summary Sheet sp4 - Nonspecific Chest Pain, Adult, [id number] sp4 Forms: - Patient Portal Instructions sp4 Addendum: 02/28/2024 20:06 Addendum: EKG 1953 notes rhythm rate 77 left ventricular hypertrophy, normal intervals, s p4 no ectopy, no ST elevation or depression. No changes since prior EKG.. 20:07 Addendum: ROS and Exam --ROS: Constitutional: Negative for fever, chills, and weight s p4 loss, positive anxiety, positive chest pain. All other systems are negative, Exam: Constitutional: This is a well developed, well nourished patient who is awake, alert, and in no acute distress. 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 Head/Face: Normocephalic, atraumatic. Eyes: Pupils equal round and reactive to light, extra-ocular motions intact. Lids and lashes normal. Conjunctiva and sclera are not injected. Cornea within normal limits. Periorbital areas with no swelling, redness, or edema. ENT: Nares patent. No nasal discharge, no septal abnormalities noted. Tympanic membranes are normal and external auditory canals are clear. Oropharynx with no redness, swelling, or masses, exudates, or evidence of obstruction, uvula midline. Mucous membranes moist. Neck: Trachea midline, no thyromegaly or masses palpated, and no cervical lymphadenopathy. Supple, full range of motion without nuchal rigidity, or vertebral point tenderness. Chest/axilla: Normal chest wall appearance and motion. Nontender with no deformity. No lesions are appreciated. Cardiovascular: Regular rate and rhythm with a normal S1 and S2. No gallops, murmurs, or rubs. Normal PMI, no JVD. No pulse deficits. Respiratory: Lungs have equal breath sounds bilaterally, clear to auscultation and percussion. No rales, rhonchi or wheezes noted. No increased work of breathing, no retractions or nasal flaring. Abdomen/GI: Soft, with normal bowel sounds. No distension or tympany. No guarding or rebound. No evidence of tenderness throughout. Back: No spinal tenderness. No costovertebral tenderness. Skin: Warm, dry with normal turgor. Normal color with no rashes, no lesions, and no evidence of cellulitis. MS/ Extremity: Pulses equal, no cyanosis. Neurovascular intact. Full, normal range of motion. Neuro: Awake and alert, GCS 15, oriented to person, place, time, and situation. Chronic longstanding left-sided hemiparesis from prior CVA. Otherwise unremarkable unchanged since prior exam Psych: Awake, alert, with orientation to person, place and time. Behavior, mood, and affect are within normal limits. ECG was reviewed by the Attending Physician. EKG normal sinus rhythm rate 72 left ventricular hypertrophy otherwise unchanged. . Signatures: Aydee Ulrich RN RN ha1 Uriel Cannon MD MD sp4 Greg Allen RN RN tm6
--- NOTE | 2024-02-26 20:48 | ER ---
Nurse's Notes [facility] Name: Geetha Khan Age: 48 yrs Sex: Female : 1975 Arrival Date: 02/26/2024 Time: 19:31 Bed DX3 Private MD: Diagnosis: Chest pain, unspecified;Acute anxiety Presentation: 02/25 19:50 Chief complaint: EMS states: Chest pain started one hour ago. Coronavirus screen: tm6 Client denies travel out of the [place] in the last 14 days. Ebola Screen: Patient negative for fever greater than or equal to 101.5 degrees Fahrenheit, and additional compatible Ebola Virus Disease symptoms Patient denies exposure to infectious person. Patient denies travel to an Ebola-affected area in the 21 days before illness onset. No symptoms or risks identified at this time. Initial Sepsis Screen:. Risk Assessment: Do you want to hurt yourself or someone else? Patient reports no desire to harm self or others. Onset of symptoms was February 26, 2024 at 18:50. 19:50 Method Of Arrival: EMS: [facility] 6 19:50 Acuity: CORRINA 3 tm6 19:50 Initial Sepsis Screen: Does the patient meet any 2 criteria? No. Patient's initial ha1 sepsis screen is negative. Does the patient have a suspected source of infection? No. Patient's initial sepsis screen is negative. Triage Assessment: 19:50 General: Appears in no apparent distress. Behavior is calm, cooperative. Pain: tm6 Complains of pain in chest Pain currently is 2 out of 10 on a pain scale. EENT: No signs and/or symptoms were reported regarding the EENT system. Neuro: Level of Consciousness is awake, alert, obeys commands, Oriented to person, place, time, situation. Cardiovascular: Reports chest pain, Patient's skin is warm and dry. Respiratory: Airway is patent Respiratory effort is even, unlabored, Respiratory pattern is regular, symmetrical. GI: No signs and/or symptoms were reported involving the gastrointestinal system. Abdomen is flat, non-distended. : No signs and/or symptoms were reported regarding the genitourinary system. Derm: No signs and/or symptoms reported regarding the dermatologic system. Musculoskeletal: No signs and/or symptoms reported regarding the musculoskeletal system. Historical: - Allergies: 19:50 Aspirin; tm6 19:50 CRANBERRY; tm6 19:50 FISH PRODUCT DERIVATIVES; tm6 19:50 GRAPEFRUIT; tm6 19:50 SHELLFISH; tm6 - PMHx: 19:50 Cerebrovascular accident; Chronic obstructive lung disease; Hypertensive disorder; tm6 Myocardial infarction; Seizure; - PSHx: 19:50 None; tm6 - Immunization history:: Flu vaccine is up to date. - Infectious Disease History:: Denies. - Social history:: Smoking status: Patient reports the use of cigarette tobacco products, smokes one-half pack cigarettes per day. Screenin:00 [facility] ED Fall Risk Assessment (Adult) History of falling in the last 3 months, ha1 including since admission Yes- single mechanical fall (1 pt) Confusion or Disorientation No (0 pts) Intoxicated or Sedated No (0 pts) Impaired Gait Yes (1 pt) Mobility Assist Device Used Yes (1 pt) Altered Elimination No (0 pt) Score/Fall Risk Level 3 or more points = High Risk Oriented to surroundings, Maintained a safe environment, Educated pt \T\ family on fall prevention, incl call for assistance when getting out of bed, Hourly rounding (assess needs \T\ fall precautionary measures) done. Abuse screen: Denies threats or abuse. Denies injuries from another. Nutritional screening: No deficits noted. Tuberculosis screening: No symptoms or risk factors identified. Assessment: 21:14 Reassessment: Patient and/or family updated on plan of care and expected duration. Pain ha1 level reassessed. Patient is alert, oriented x 3, equal unlabored respirations, skin warm/dry/pink. Patient states feeling better. Patient states symptoms have improved. Vital Signs: 20:03 BP 139 / 98; Pulse 82; Resp 18; Temp 97.9(TE); Pulse Ox 100% on R/A; Weight 56.7 kg; rv1 Height 5 ft. 2 in. ; 20:03 Body Mass Index 22.86 (56.70 kg, 157.48 cm) rv1 ED Course: 19:43 Patient arrived in ED. im 19:50 Triage completed. tm6 19:50 Arm band placed on right wrist. tm6 19:52 EKG completed in triage. Results shown to MD. tm6 19:52 Patient has correct armband on for positive identification. Bed in low position. Call ha1 light in reach. Side rails up X 1. Adult w/ patient. 19:52 Provided Education on: plan of care -. Client placed on continuous cardiac and pulse ha1 oximetry monitoring. NIBP monitoring applied. 20:03 Uriel Cannon MD is Attending Physician. sp4 20:50 Aydee Ulrich RN is Primary Nurse. ha1 02/26 02:14 No provider procedures requiring assistance completed. ha1 02:14 Patient did not have IV access during this emergency room visit. Patient maintains SpO2 ha1 saturation greater than 95% on room air. Administered Medications: 02/25 21:00 Drug: HYDROcodone-acetaminophen PO 5 mg-325 mg 2 tabs PO once Route: PO; ha1 21:13 Follow up: Response: No adverse reaction; Marked relief of symptoms ha1 21:00 Drug: Diazepam PO 5 mg PO once Route: PO; ha1 21:13 Follow up: Response: No adverse reaction; Marked relief of symptoms ha1 21:00 Drug: Ketorolac PO 10 mg PO once Route: PO; ha1 21:13 Follow up: Response: No adverse reaction; Marked relief of symptoms ha1 21:00 Drug: Dextromethorphan-Guaifenesin PO Liquid 10 mg-100 mg/5 mL 10 ml PO once Route: PO; ha1 21:13 Follow up: Response: No adverse reaction; Marked relief of symptoms ha1 Medication: 21:14 VIS not applicable for this client. ha1 Outcome: 20:48 Discharge ordered by . sp4 21:14 Patient left the ED. ha1 02/26 05:28 Discharged to home via wheelchair, with family, ha1 Condition: stable Discharge instructions given to patient, Instructed on discharge instructions, follow up and referral plans. Demonstrated understanding of instructions, follow-up care, Signatures: Aydee Ulrich RN RN ha1 Autumn Rodriguez rv1 Uriel Cannon MD MD sp4 Verna Jhaveri Tawney RN RN tm6 Corrections: (The following items were deleted from the chart) 02/25 20:04 20:03 BP 139 / 98; Pulse 82bpm; Resp 18bpm; Pulse Ox 100% RA; Temp 97.9F Temporal; rv1 rv1
[2024-02-26] MEDS ORDERED: KETOROLAC 10 MG TAB ONE (20:55)
[2024-02-26] MEDS ORDERED: HYDROCODONE/APAP 5/325 MG TAB ONE (20:56)
[2024-02-26] MEDS ORDERED: DIAZEPAM 5 MG TABLET ONE (20:56)
[2024-02-26] MEDS ORDERED: GUAIFENESIN/DM 5 ML UCUP ONE (20:56)
[2024-02-26 21:22] VITALS: BP 139/98; TEMP 97.9; O2SAT 100
--- NOTE | 2024-02-28 15:49 | EKG ---
Test Date: 2024-02-26 Test Time: 19:54:11 Cafe Helper: RV MEASUREMENT RESULTS: Intervals: Rate: 77 NM: 182 QRSD: 82 QT: 402 QTc: 454 [place]: P: 40 NM: 182 QRS: -9 T: 145 INTERPRETIVE STATEMENTS: Normal sinus rhythm Left ventricular hypertrophy with repolarization abnormality Inferior infarct, age undetermined Abnormal ECG Compared to ECG 02/04/2024 21:48:42 Myocardial infarct finding now present Electronically Signed On 02-28-24 15:46:52 [employer]IDENT [employer] ACQU[employer]ION by Alan Garay
== END 2024-02-26 21:14 | disposition home or self-care (01) ==
LOC: ER 19:31
DX: F41.9 Anxiety disorder, unspecified (principal); I10 Essential (primary) hypertension; I25.2 Old myocardial infarction; J44.9 Chronic obstructive pulmonary disease, unspecified; F17.210 Nicotine dependence, cigarettes, uncomplicated
CPT/HCPCS: 93005; 99284

== ENCOUNTER 2024-02-27 19:30 | Emergency (ER) | payer OTHER ==
[2024-02-27] MEDS ORDERED: hydrOXYzine HCL 25 MG TAB ONE (19:48)
[2024-02-27] MEDS ORDERED: IBUPROFEN 400 MG TAB ONE (19:48)
--- NOTE | 2024-02-27 19:57 | EDPHYS ---
Physician Documentation [facility] Name: Geetha Khan Age: 48 yrs Sex: Female : 1975 Arrival Date: 02/27/2024 Time: 19:30 Bed 13 Private MD: ED Physician Russell Rodriguez HPI: 02/26 19:39 This 48 yrs old Female presents to ER via Unassigned with complaints of ec2 anxiety, chest pain. 19:39 Patient with history of anxiety arrives today for anxiety and chest pain. Patient ec2 reports that she normally takes ibuprofen for her chest pain however ran out of it. No other concerns.. ROS: 19:39 Constitutional: as per hpi ec2 Exam: 19:39 Constitutional: GEN: NAD Head: atraumatic Eyes: EOMI Ears: External ears are ec2 normal. CV: regular rate LUNGS: no respiratory distress, no wheezes or rales or rhonchi ABD: non-distended SKIN: no evidence of rashes MSK: no evidence of trauma. Psych: Cooperative individual is otherwise in no acute distress. Vital Signs: 20:01 BP 163 / 111; Pulse 69; Resp 18; Temp 97.6(O); Pulse Ox 100% on R/A; Weight 56.7 kg; oe Height 5 ft. 2 in. ; 20:01 Body Mass Index 22.86 (56.70 kg, 157.48 cm) oe MDM: 19:37 Medical Screening Exam initiated ec2 19:39 Data reviewed: vital signs, nurses notes. ED course: Patient arrives today for chest ec2 pain and anxiety. Examination is unrevealing. Will give the patient Atarax, ibuprofen and obtain an EKG. Suspect patient's anxiety is causing today's presentation. Doubt ACS, doubt PE, doubt dissection.. 19:55 ED course: EKG independently reviewed and interpreted by me, shows normal sinus rhythm, ec2 rate of 68, no acute ST segment elevations, intervals are nonactionable, nonspecific T wave abnormalities noted in the lateral leads, similar to previous EKGs. Will discharge home have the patient follow-up with PCP. Return precautions given. Presentation consistent with anxiety.. 02/26 19:36 Order name: EKG - Nurse/Tech; Complete Time: 19:58 ec2 Administered Medications: 19:58 Drug: hydrOXYzine PO 50 mg PO once Route: PO; rg5 19:58 Drug: Ibuprofen PO 800 mg PO once Route: PO; rg5 Disposition Summary: 02/27/24 19:56 Discharge Ordered Notes: Location: Home ec2 Condition: Stable ec2 Diagnosis - Anxiety disorder, unspecified ec2 - Chest pain, unspecified ec2 Followup: ec2 - With: Private Physician - When: - Reason: Re-evaluation by your physician Discharge Instructions: - Discharge Summary Sheet ec2 - Generalized Anxiety Disorder, Adult ec2 Forms: - Medication Reconciliation Form ec2 - Antibiotic Education ec2 - Prescription Opioid Use ec2 - Patient Portal Instructions ec2 - Leadership Thank You Letter ec2 Signatures: Russell Rodriguez MD MD ec2 Hakan Crowley RN RN rg5
--- NOTE | 2024-02-27 20:15 | ER ---
Nurse's Notes [facility] Name: Geetha Khan Age: 48 yrs Sex: Female : 1975 Arrival Date: 02/27/2024 Time: 19:30 Bed 13 Private MD: Diagnosis: Anxiety disorder, unspecified;Chest pain, unspecified Vital Signs: 02/26 20:01 BP 163 / 111; Pulse 69; Resp 18; Temp 97.6(O); Pulse Ox 100% on R/A; Weight 56.7 kg; oe Height 5 ft. 2 in. ; 20:01 Body Mass Index 22.86 (56.70 kg, 157.48 cm) oe ED Course: 19:36 Patient arrived in ED. ec2 19:36 Russell Rodriguez MD is Attending Physician. ec2 19:39 Hakan Crowley, YANETH is Primary Nurse. rg5 20:02 EKG done, by ED staff, reviewed by Russell Rodriguez MD. oe Administered Medications: 19:58 Drug: hydrOXYzine PO 50 mg PO once Route: PO; rg5 19:58 Drug: Ibuprofen PO 800 mg PO once Route: PO; rg5 Outcome: 19:56 Discharge ordered by MD. ec2 20:14 Discharged to home via wheelchair, tm6 20:14 Condition: stable 20:14 Discharge instructions given to patient, Instructed on discharge instructions, follow up and referral plans. Demonstrated understanding of instructions, follow-up care, 20:14 Patient left the ED. tm6 Signatures: Yoni Schreiber oe Russell Rodriguez MD MD ec2 Greg Allen RN RN tm6 Hakan Crowley, YANETH RN rg5
[2024-02-27 20:23] VITALS: BP 163/111; TEMP 97.6; O2SAT 100
--- NOTE | 2024-02-28 15:44 | EKG ---
Test Date: 2024-02-27 Test Time: 19:49:52 Camera Storage Clerk: SOLO MEASUREMENT RESULTS: Intervals: Rate: 68 AL: 190 QRSD: 84 QT: 430 QTc: 457 [place]: P: 36 AL: 190 QRS: 12 T: 146 INTERPRETIVE STATEMENTS: Normal sinus rhythm Left ventricular hypertrophy with repolarization abnormality Abnormal ECG Compared to ECG 02/26/2024 19:54:11 Myocardial infarct finding no longer present Electronically Signed On 02-28-24 15:43:48 APRN by Alan Garay
== END 2024-02-27 20:14 | disposition home or self-care (01) ==
LOC: ER 19:30
DX: F41.9 Anxiety disorder, unspecified (principal); R07.9 Chest pain, unspecified
CPT/HCPCS: 93005; 99283

== ENCOUNTER 2024-02-28 21:11 | Emergency (ER) | payer OTHER ==
[2024-02-28] MEDS ORDERED: ASPIRIN 81 MG CHEWABLE TABLET ONE (21:32)
[2024-02-28] MEDS ORDERED: DIAZEPAM 5 MG TABLET ONE (21:32)
[2024-02-28 21:58] LABS: Absolute Eosinophils 0.1 K/uL (0-0.5); Absolute Lymphocytes (CBC) 1.6 K/uL (0.7-4.9); Absolute Monocytes 0.4 K/uL (0.1-1.3); Basophils % 1.1 % (0-1.3); Hematocrit 35.2 % (36.0-45.0); Hemoglobin 11.7 g/dL (12.0-15.0); Lymphocytes % 38.9 % (15.3-44.8); MCH 34.4 pg (27.0-35.0); MCHC 33.4 g/dL (32.0-36.0); MCV 103.1 fL (80-100); MPV 7.7 fL (7.6-11.3); Platelets 220 thou/uL (152-406); RBC Red Blood Cell Count 3.41 M/uL (3.86-4.86); Red Cell Distribution Width 12.9 % (12.1-15.2)
[2024-02-28 22:16] LABS: Anion Gap 11.5 mEq/L (5.0-15.0); Potassium 4.5 mEq/L (3.5-5.1); Troponin High Sensitivity 27.1 pg/mL (<58.9)
--- NOTE | 2024-02-28 22:26 | RAD REPORT ---
EXAM: Chest Single View HISTORY: CHEST PAIN COMPARISON: 02/02/2024 FINDINGS: LUNGS/PLEURA: The lungs are clear. No pleural effusions or pneumothorax. No pulmonary edema. MEDIASTINUM: The mediastinal silhouette is within normal limits. CARDIAC: Similar size and configuration. UPPER ABDOMEN: No significant abnormality. BONES: No acute fracture. LINES/TUBES/OTHER: N/A IMPRESSION: No evidence of acute cardiopulmonary disease.
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
[2024-02-28 22:51] VITALS: TEMP 97.7
[2024-02-28 22:53] VITALS: BP 122/88; O2SAT 99
--- NOTE | 2024-03-03 12:07 | EKG ---
Test Date: 2024-02-28 Test Time: 21:34:50 Batch And Furnace Operator: SOLO MEASUREMENT RESULTS: Intervals: Rate: 77 IN: 180 QRSD: 80 QT: 398 QTc: 450 [place]: P: 41 IN: 180 QRS: 6 T: 157 INTERPRETIVE STATEMENTS: Normal sinus rhythm Left ventricular hypertrophy with repolarization abnormality Abnormal ECG Compared to ECG 02/27/2024 19:49:52 No significant changes Electronically Signed On 03-03-24 12:04:32 BEAUTY PARLOR CLEANER by Alan Garay
== END 2024-02-28 22:44 | disposition home or self-care (01) ==
LOC: ER 21:11
DX: R07.9 Chest pain, unspecified (principal); I10 Essential (primary) hypertension; J44.9 Chronic obstructive pulmonary disease, unspecified; I25.2 Old myocardial infarction; Z72.0 Tobacco use
CPT/HCPCS: 36415; 71045; 80048; 84484; 85025; 93005; 99285

== ENCOUNTER 2024-02-29 20:43 | Emergency (ER) | payer OTHER ==
--- NOTE | 2024-02-29 21:52 | RAD REPORT ---
EXAMINATION: ONE VIEW CHEST XR CLINICAL INDICATION: CHEST PAIN TECHNIQUE: Frontal chest projection is submitted. Examination is limited by patient positioning and t echnique. COMPARISON: 02/28/2024 FINDINGS: The lungs are well inflated and clear. The heart is upper limit of normal in size. No displaced fract ures identified. IMPRESSION: No acute intrathoracic abnormalities.
[2024-02-29] MEDS ORDERED: ASPIRIN 81 MG CHEWABLE TABLET ONE (21:56)
[2024-02-29 22:20] LABS: Absolute Eosinophils 0.1 K/uL (0-0.5); Absolute Lymphocytes (CBC) 1.9 K/uL (0.7-4.9); Absolute Monocytes 0.4 K/uL (0.1-1.3); Absolute Neutrophil 2.7 K/uL (1.8-8.0); Basophils % 0.8 % (0-1.3); Eosinophils % 2.1 % (0-4.4); Hematocrit 33.6 % (36.0-45.0); Hemoglobin 11.1 g/dL (12.0-15.0); Lymphocytes % 37.8 % (15.3-44.8); MCH 34.7 pg (27.0-35.0); MCHC 33.1 g/dL (32.0-36.0); MCV 104.8 fL (80-100); MPV 7.7 fL (7.6-11.3); Neutrophils % 52.3 % (41.7-73.7); Platelets 219 thou/uL (152-406); Red Cell Distribution Width 13.3 % (12.1-15.2)
[2024-02-29 22:28] LABS: PT Prothrombin Time 10.1 SECONDS (9.4-12.5)
[2024-02-29 22:48] LABS: ALT/SGPT 15 U/L (13-56); Albumin 3.3 g/dL (3.4-5.0); Albumin/Globulin Ratio 1.1 (1.1-1.8); Alkaline Phosphatase 146 U/L (45-117); Anion Gap 7.9 mEq/L (5.0-15.0); BUN Blood Urea Nitrogen 17 mg/dL (7-18); Bicarbonate 24 mEq/L (21-32); Bilirubin Total 0.2 mg/dL (0.2-1.0); Glomerular Filtration Rate 42 ml/min (=/>90); Glucose Level 74 mg/dL (74-106); NT PRO-BNP 1878 pg/mL (<125); Protein, Total 6.3 g/dL (6.4-8.2); Sodium Level 138 mEq/L (136-145); Troponin High Sensitivity 27.4 pg/mL (<58.9)
[2024-02-29 23:05] LABS: AST/SGOT 21 U/L (15-37); Bilirubin Direct < 0.2 mg/dL (0-0.2); Magnesium 1.3 mg/dL (1.6-2.4); Potassium 3.9 mEq/L (3.5-5.1)
[2024-02-29 23:06] LABS: D-Dimer < 0.215 FEUug/mL (0-0.500)
[2024-02-29] MEDS ORDERED: MAGNESIUM SULFATE 1 gm IVPB 1 GM/100 ML BAG IV ONE (23:33)
[2024-02-29 23:40] LABS: Specific Gravity 1.026 (1.005-1.030); Sqamous Epithelial <5 /HPF (None Seen); Urine Bacteria 20-50 /HPF (<20); Urine Bilirubin NEGATIVE (Negative); Urine Blood Negative (Negative); Urine Clarity Turbid (Clear); Urine Color Yellow (Yellow); Urine Culture Reflex Order REFLEXED; Urine Glucose NEGATIVE (Negative); Urine Ketones NEGATIVE (Negative); Urine Microscopic Reflex YN ORDER UMIC; Urine Mucus Slight /HPF (None Seen); Urine Nitrite 2+ (Negative); Urine Protein NEGATIVE (Negative); Urine RBC <5 /HPF (None Seen); Urine Urobilinogen Normal (Normal); Urine WBC Clump Rare /HPF (None Seen)
[2024-02-29 23:41] LABS: Barbiturates NEGATIVE (NEGATIVE); Benzodiazepines POSITIVE (NEGATIVE); Cocaine NEGATIVE (NEGATIVE); METHAMPHETAM NEGATIVE (NEGATIVE); Methadone NEGATIVE (NEGATIVE); Opiates NEGATIVE (NEGATIVE); Phencyclidine NEGATIVE (NEGATIVE); THC Cannibis NEGATIVE (NEGATIVE)
--- NOTE | 2024-02-29 23:57 | EDPHYS ---
Physician Documentation [facility] Name: Geetha Khan Age: 48 yrs Sex: Female : 1975 Arrival Date: 02/29/2024 Time: 20:43 Bed DX3 Private MD: ED Physician Michael Grimm HPI: 02/28 23:52 This 48 yrs old Female presents to ER via EMS with complaints of Chest Pain. juan diego 23:52 The patient or guardian reports chest pain that is located primarily in the anterior [facility] chest wall, bilaterally. Onset: yesterday. The pain does not radiate. Associated signs and symptoms: The patient has no apparent associated signs or symptoms. The chest pain is described as aching. Modifying factors: The symptoms are alleviated by nothing. the symptoms are aggravated by nothing. Severity of pain: At its worst the pain was mild in the emergency department the pain has resolved and did so just prior to arrival. EMS care prior to arrival includes: NONE. The patient has experienced similar episodes in the past, chronically. Historical: - Allergies: 21:19 Aspirin; cm10 21:19 CRANBERRY; cm10 21:19 FISH PRODUCT DERIVATIVES; cm10 21:19 GRAPEFRUIT; cm10 21:19 SHELLFISH; cm10 - PMHx: 21:19 Cerebrovascular accident; Hypertensive disorder; Chronic obstructive lung disease; cm10 Myocardial infarction; Seizure; - Immunization history:: Adult Immunizations up to date. - Infectious Disease History:: Denies. - Social history:: Smoking status: Patient reports the use of cigarette tobacco products, smokes one-half pack cigarettes per day. - Family history:: not pertinent. ROS: 23:52 Constitutional: Negative for fever, chills, and weight loss, Eyes: Negative for injury, juan diego pain, redness, and discharge, ENT: Negative for injury, pain, and discharge, Neck: Negative for injury, pain, and swelling, Respiratory: Negative for shortness of breath, cough, wheezing, and pleuritic chest pain, Abdomen/GI: Negative for abdominal pain, nausea, vomiting, diarrhea, and constipation, Back: Negative for injury and pain, : Negative for injury, bleeding, discharge, and swelling, MS/Extremity: Negative for injury and deformity, Skin: Negative for injury, rash, and discoloration, Neuro: Negative for headache, weakness, numbness, tingling, and seizure, 23:52 Cardiovascular: Positive for chest pain, Exam: 23:52 Constitutional: This is a well developed, well nourished patient who is awake, alert, juan diego and in no acute distress. Head/Face: Normocephalic, atraumatic. Eyes: Pupils equal round and reactive to light, extra-ocular motions intact. Lids and lashes normal. Conjunctiva and sclera are non-icteric and not injected. Cornea within normal limits. Periorbital areas with no swelling, redness, or edema. ENT: Nares patent. No nasal discharge, no septal abnormalities noted. Tympanic membranes are normal and external auditory canals are clear. Oropharynx with no redness, swelling, or masses, exudates, or evidence of obstruction, uvula midline. Mucous membranes moist. Neck: Trachea midline, no thyromegaly or masses palpated, and no cervical lymphadenopathy. Supple, full range of motion without nuchal rigidity, or vertebral point tenderness. No Meningismus. Chest/axilla: Normal chest wall appearance and motion. Nontender with no deformity. No lesions are appreciated. Cardiovascular: Regular rate and rhythm with a normal S1 and S2. No gallops, murmurs, or rubs. Normal PMI, no JVD. No pulse deficits. Respiratory: Lungs have equal breath sounds bilaterally, clear to auscultation and percussion. No rales, rhonchi or wheezes noted. No increased work of breathing, no retractions or nasal flaring. Abdomen/GI: Soft, non-tender, with normal bowel sounds. No distension or tympany. No guarding or rebound. No evidence of tenderness throughout. Back: No spinal tenderness. No costovertebral tenderness. Full range of motion. Skin: Warm, dry with normal turgor. Normal color with no rashes, no lesions, and no evidence of cellulitis. MS/ Extremity: Pulses equal, no cyanosis. Neurovascular intact. Full, normal range of motion., bilateral aka Neuro: Awake and alert, GCS 15, oriented to person, place, time, and situation. Cranial nerves II-XII grossly intact. Motor strength 5/5 in all extremities. Sensory grossly intact. Cerebellar exam normal. Normal gait. Psych: Awake, alert, with orientation to person, place and time. Behavior, mood, and affect are within normal limits. 23:52 ECG was reviewed by the Attending Physician. 23:52 Musculoskeletal/extremity: ROM: no acute changes, intact in all extremities, full active range of motion, Circulation is intact in all extremities. Sensation intact. Compartment Syndrome exam of affected extremity: is normal. Joints: All joints appear normal with full range of motion. Weight bearing: able to fully bear weight, Tendon exam: specific tendon testing normal through active and passive range of motion DVT Exam: No signs of deep vein thrombosis. no pain, no swelling, no tenderness, negative Homans' sign noted on exam, no appreciated bluish discoloration, no erythema, no increased warmth, Vital Signs: 21:17 BP 153 / 93; Pulse 84; Resp 17; Temp 97.1(TE); Pulse Ox 100% on R/A; Weight 56.7 kg; cm10 Height 5 ft. 2 in. ; Pain 10/; 23:26 BP 145 / 91; Pulse 77; Resp 16 S; Pulse Ox 100% on R/A; lg3 03/01 00:05 BP 153 / 90; Pulse 79; Resp 17 S; Pulse Ox 100% on R/A; [facility] 02/28 21:17 Body Mass Index 22.86 (56.70 kg, 157.48 cm) cm10 02/28 21:17 Pain Scale: Adult cm10 MDM: 02/28 20:45 Medical Screening Exam initiated [facility] 02/28 20:47 Order name: Basic Metabolic Panel; Complete Time: 23:30 [facility] 02/28 20:47 Order name: CBC with Diff; Complete Time: 23:30 [facility] 02/28 20:47 Order name: LFT's; Complete Time: 23:30 [facility] 02/28 20:47 Order name: Magnesium; Complete Time: 23:30 [facility] 02/28 20:47 Order name: NT PRO-BNP; Complete Time: 23:30 [facility] 02/28 20:47 Order name: PT-INR; Complete Time: 23:30 [facility] 02/28 20:47 Order name: Troponin HS; Complete Time: 23:30 [facility] 02/28 20:47 Order name: Urinalysis w/ reflexes [facility] 02/28 20:47 Order name: UDS [facility] 02/28 20:47 Order name: D-Dimer; Complete Time: 23:30 [facility] 02/28 23:43 Order name: Urine Culture [facility] 02/28 20:47 Order name: XRAY Chest (1 view); Complete Time: 23:30 [facility] 02/28 20:47 Order name: EKG - Nurse/Tech; Complete Time: 22:00 [facility] 02/28 20:47 Order name: IV Saline Lock; Complete Time: 22: [facility] 02/28 20:47 Order name: Labs collected and sent; Complete Time: 22: [facility] 02/28 20:47 Order name: O2 Per Protocol; Complete Time: : [facility] 02/28 20:47 Order name: O2 Sat Monitoring; Complete Time: 22: [facility] EC:52 Rate is 74 beats/min. Rhythm is regular. QRS Alliance is Normal. CA interval is normal. QRS juan [place]go interval is normal. QT interval is normal. No Q waves. T waves are Normal. No ST changes noted. Clinical impression: Abnormal EKG without significant change and No evidence of ischemia. Interpreted by me. Reviewed by me. Administered Medications: 22:00 Not Given (allergy to aspirin ): aspirinchewable tablet 81 mg PO once lg3 23:44 Drug: Magnesium Sulfate IVPB 1 grams IVPB once over 1 hrs Route: IVPB; Infused Over: 1 lg3 hrs; Site: right hand; 03/01 00:45 Follow up: Response: No adverse reaction; IV Status: Completed infusion; IV Intake: lg3 100ml Disposition Summary: 02/29/24 23:56 Discharge Ordered Notes: Location: Home juan diego Problem: new juan diego Symptoms: have improved juan diego Condition: Stable juan diego Diagnosis - Chest pain, unspecified juan diego - Hypomagnesemia juan diego - Tobacco abuse counseling juan diego - Tobacco use juan diego Followup: juan diego - With: Private Physician - When: 1 - 2 days - Reason: Recheck today's complaints, Continuance of care, Re-evaluation by your physician Followup: juan diego - With: Josse Olson MD - When: 1 - 2 days - Reason: Recheck today's complaints, Continuance of care, Re-evaluation by your physician Discharge Instructions: - Discharge Summary Sheet juan diego - Nonspecific Chest Pain, Adult juan diego - Hypomagnesemia juan diego - Self-Destructive Behavior juan diego - Steps to Quit Smoking juan diego - Health Risks of Smoking juan diego - Nonspecific Chest Pain, Adult, [id number] juan diego - Steps to Quit Smoking, [id number] juan diego - Aspirin and Your Heart juan diego Forms: - Medication Reconciliation Form juan diego - Antibiotic Education juan diego - Prescription Opioid Use juan diego - Patient Portal Instructions [facility] - Leadership Thank You Letter [facility] Prescriptions: - magnesium oxide 400 mg (241.3 mg magnesium) Oral tablet - take 1 tablet ORAL route 2 times per day; 14 tablet; Refills: 0, Product [facility] Selection Permitted - Pepcid 20 mg Oral tablet - take 1 tablet ORAL route every 12 hours for 21 days; 42 tablet; Refills: 0, [facility] Product Selection Permitted Signatures: Dispatcher [employer] EDMichael Salas MD MD cha Able, Lacie, RN RN lg3 Kelsey Khan RN RN cm10 Corrections: (The following items were deleted from the chart) 02/28 20:47 20:47 BASIC METABOLIC PANEL+C.LAB.BRZ ordered. EDMS EDMS 20:47 20:47 CBC+H.LAB.BRZ ordered. EDMS EDMS 20:47 20:47 HEPATIC FUNCTION+C.LAB.BRZ ordered. EDMS EDMS 20:47 20:47 MAGNESIUM+C.LAB.BRZ ordered. EDMS EDMS 20:47 20:47 PROBNP+C.LAB.BRZ ordered. EDMS EDMS 20:47 20:47 PROTIME (+INR)+COAG.LAB.BRZ ordered. EDMS EDMS 20:47 20:47 Troponin High Sensitivity+C.LAB.BRZ ordered. EDMS EDMS 20:47 20:47 Urinalysis+U.LAB.BRZ ordered. EDMS EDMS 20:47 20:47 URINE DRUG SCREEN+UC.LAB.BRZ ordered. EDMS EDMS 20:47 20:47 D-DIMER+COAG.LAB.BRZ ordered. EDMS EDMS 20:47 20:47 Chest Single View+RAD.RAD.BRZ ordered. EDMS EDMS
--- NOTE | 2024-02-29 23:57 | ER ---
Nurse's Notes [facility] Name: Geetha Khan Age: 48 yrs Sex: Female : 1975 Arrival Date: 02/29/2024 Time: 20:43 Bed DX3 Private MD: Diagnosis: Chest pain, unspecified;Hypomagnesemia;Tobacco abuse counseling;Tobacco use Presentation: 02/28 21:17 Chief complaint: EMS states: CALLED TO PATIENT'S HOME DUE TO PATIENT HAVING CHEST PAIN cm10 TO THE CENTER OF HER CHEST THAT SHE DESCRIBES TIGHTNESS. PT ALSO REPORTS SHORTNESS OF BREATH. 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 Coronavirus screen: Client denies travel out of the [place] in the last 14 days. Ebola Screen: Patient denies travel to an Ebola-affected area in the 21 days before illness onset. No symptoms or risks identified at this time. Initial Sepsis Screen: Does the patient meet any 2 criteria? No. Patient's initial sepsis screen is negative. Does the patient have a suspected source of infection? No. Patient's initial sepsis screen is negative. Risk Assessment: Do you want to hurt yourself or someone else? Patient reports no desire to harm self or others. Onset of symptoms was February 29, 2024. Care prior to arrival: Medication(s) given: Albuterol Neb x 1, Atrovent Neb x 1, Med neb given. 21:17 Method Of Arrival: EMS: [facility] 10 21:17 Acuity: CORRINA 3 cm10 Triage Assessment: 21:20 General: Appears in no apparent distress. comfortable, Behavior is calm, cooperative. cm10 Neuro: No deficits noted. Level of Consciousness is awake, alert, obeys commands, Oriented to person, place, time, situation, Appropriate for age. Respiratory: No deficits noted. Airway is patent Respiratory effort is even, unlabored, Respiratory pattern is regular, symmetrical. Historical: - Allergies: 21:19 Aspirin; cm10 21:19 CRANBERRY; cm10 21:19 FISH PRODUCT DERIVATIVES; cm10 21:19 GRAPEFRUIT; cm10 21:19 SHELLFISH; cm10 - PMHx: 21:19 Cerebrovascular accident; Hypertensive disorder; Chronic obstructive lung disease; cm10 Myocardial infarction; Seizure; - Immunization history:: Adult Immunizations up to date. - Infectious Disease History:: Denies. - Social history:: Smoking status: Patient reports the use of cigarette tobacco products, smokes one-half pack cigarettes per day. - Family history:: not pertinent. Screenin:30 [facility] ED Fall Risk Assessment (Adult) History of falling in the last 3 months, lg3 including since admission No falls in past 3 months (0 pts) Confusion or Disorientation No (0 pts) Intoxicated or Sedated No (0 pts) Impaired Gait Yes (1 pt) Mobility Assist Device Used Yes (1 pt) Altered Elimination No (0 pt) Score/Fall Risk Level 3 or more points = High Risk Oriented to surroundings, Maintained a safe environment, Educated pt \T\ family on fall prevention, incl call for assistance when getting out of bed, Assessed \T\ reinforced patient's understanding of fall precautions. Abuse screen: Denies threats or abuse. Denies injuries from another. Nutritional screening: No deficits noted. Tuberculosis screening: No symptoms or risk factors identified. Assessment: 21:30 General: Appears in no apparent distress. comfortable, Behavior is calm, cooperative. lg3 Pain: Complains of pain in chest Pain does not radiate. Pain began chronic. Neuro: No deficits noted. Mullen Agitation-Sedation Scale (RASS): 0 - Alert and Calm Level of Consciousness is awake, alert, obeys commands, Oriented to person, place, time, situation. Cardiovascular: Reports chest pain, shortness of breath, Heart tones S1 S2 present Capillary refill < 3 seconds Clubbing of nail beds is absent JVD is absent Patient's skin is warm and dry. Respiratory: No deficits noted. Airway is patent Respiratory effort is even, unlabored, Respiratory pattern is regular, symmetrical. GI: No deficits noted. No signs and/or symptoms were reported involving the gastrointestinal system. : No signs and/or symptoms were reported regarding the genitourinary system. EENT: No deficits noted. No signs and/or symptoms were reported regarding the EENT system. Derm: No deficits noted. No signs and/or symptoms reported regarding the dermatologic system. Skin is intact, is healthy with good turgor, Skin is dry, Skin is normal, Skin temperature is warm. Musculoskeletal: No signs and/or symptoms reported regarding the musculoskeletal system. Circulation, motion, and sensation intact. 23:26 Reassessment: Patient appears in no apparent distress at this time. No changes from lg3 previously documented assessment. Patient and/or family updated on plan of care and expected duration. Pain level reassessed. Patient is alert, oriented x 3, equal unlabored respirations, skin warm/dry/pink. 03/01 00:05 Reassessment: Patient appears in no apparent distress at this time. No changes from lg3 previously documented assessment. Patient and/or family updated on plan of care and expected duration. Pain level reassessed. Patient is alert, oriented x 3, equal unlabored respirations, skin warm/dry/pink. 00:06 General: PT to DC after IV completion . lg3 Vital Signs: 02/28 21:17 BP 153 / 93; Pulse 84; Resp 17; Temp 97.1(TE); Pulse Ox 100% on R/A; Weight 56.7 kg; cm10 Height 5 ft. 2 in. ; Pain 10/10; 23:26 BP 145 / 91; Pulse 77; Resp 16 S; Pulse Ox 100% on R/A; lg3 03/01 00:05 BP 153 / 90; Pulse 79; Resp 17 S; Pulse Ox 100% on R/A; lg3 02/28 21:17 Body Mass Index 22.86 (56.70 kg, 157.48 cm) cm10 02/28 21:17 Pain Scale: Adult cm10 ED Course: 02/28 20:45 Patient arrived in ED. ra3 20:45 Michael Grimm MD is Attending Physician. [place] 21:19 Triage completed. cm10 21:20 Arm band placed on right wrist. Patient placed in waiting room. cm10 21:30 Patient taken to [facility], via wheelchair. lg3 21:30 Patient has correct armband on for positive identification. Warm blanket given. Family lg3 accompanied patient. 21:30 Patient maintains SpO2 saturation greater than 95% on room air. lg3 21:42 XRAY Chest (1 view) In Process Unspecified. EDMS 22:24 Inserted saline lock: 22 gauge in right hand, using aseptic technique. Blood collected. af3 Flushed with 10 mL NS. 23:55 Josse Olson MD is Referral Physician. [place] 03/01 00:06 No provider procedures requiring assistance completed. lg3 00:45 IV discontinued, intact, bleeding controlled, No redness/swelling at site. Pressure lg3 dressing applied. Administered Medications: 02/28 22:00 Not Given (allergy to aspirin ): aspirinchewable tablet 81 mg PO once lg3 23:44 Drug: Magnesium Sulfate IVPB 1 grams IVPB once over 1 hrs Route: IVPB; Infused Over: 1 lg3 hrs; Site: right hand; 03/01 00:45 Follow up: Response: No adverse reaction; IV Status: Completed infusion; IV Intake: lg3 100ml Medication: 00:45 VIS not applicable for this client. lg3 Intake: 00:45 IV: 100ml; Total: 100ml. lg3 Outcome: 02/28 23:56 Discharge ordered by MD. adamson 03/01 00:45 Discharged to home via wheelchair, with significant other, lg3 Condition: stable Discharge instructions given to patient, Instructed on discharge instructions, follow up and referral plans. medication usage, Demonstrated understanding of instructions, follow-up care, medications, Prescriptions given X 2, 00:45 Patient left the ED. lg3 Signatures: Dispatcher [employer] EDMS Michael Grimm MD MD cha Able, Lacie, RN RN lg3 Kelsey Khan RN RN cm10 Renea Gallardo ra3 Gila Dia3
[2024-03-01 01:04] VITALS: TEMP 97.1; O2SAT 100
[2024-03-01 01:07] VITALS: BP 153/90
--- NOTE | 2024-03-03 12:04 | EKG ---
Test Date: 2024-02-29 Test Time: 22:10:07 Pass Worker: AF MEASUREMENT RESULTS: Intervals: Rate: 74 TN: 182 QRSD: 84 QT: 408 QTc: 452 [place]: P: 43 TN: 182 QRS: 7 T: 147 INTERPRETIVE STATEMENTS: Normal sinus rhythm Left ventricular hypertrophy with repolarization abnormality Abnormal ECG Compared to ECG 02/28/2024 21:34:50 No significant changes Electronically Signed On 03-03-24 12:03:02 HOME SCHOOL COORDINATOR by Alan Garay
== END 2024-03-01 00:45 | disposition home or self-care (01) ==
LOC: ER 20:43
DX: R07.89 Other chest pain (principal); E83.42 Hypomagnesemia; Z71.6 Tobacco abuse counseling; Z72.0 Tobacco use; J44.9 Chronic obstructive pulmonary disease, unspecified; I10 Essential (primary) hypertension; I25.2 Old myocardial infarction
CPT/HCPCS: 96365; 93005; 87088; 85025; 81001; 87086; 80048; 36415; 83735; 85610; 85379; 80076; 87077; 87186; 84484; 83880; 80307; 71045; 99284; J3475

== ENCOUNTER 2024-03-01 18:29 | Emergency (ER) | payer OTHER ==
--- NOTE | 2024-03-01 21:02 | EDPHYS ---
Physician Documentation [facility] Name: Geetha Khan Age: 48 yrs Sex: Female : 1975 Arrival Date: 03/01/2024 Time: 18:29 Bed 18 Private MD: ED Physician Michael Grimm HPI: 03/01 20:02 This 48 yrs old Female presents to ER via EMS with complaints of Chest Pain. [place]an [place] 20:02 The patient or guardian reports chest pain that is located primarily in the substernal [place] area. Onset: 1 day(s) ago. The pain does not radiate. Associated signs and symptoms: Pertinent positives: shortness of breath. The chest pain is described as aching. Duration: The patient or guardian reports multiple episodes, with no pattern. Modifying factors: The symptoms are alleviated by nothing. the symptoms are aggravated by nothing. Severity of pain: At its worst the pain was mild in the emergency department the pain is unchanged. The patient has experienced similar episodes in the past, chronically. Historical: - Allergies: 18:34 Aspirin; cm10 18:34 CRANBERRY; cm10 18:34 FISH PRODUCT DERIVATIVES; cm10 18:34 GRAPEFRUIT; cm10 18:34 SHELLFISH; cm10 - Home Meds: 18:34 lisinopril Oral [Active]; amlodipine oral [Active]; Zofran Oral [Active]; quetiapine cm10 oral [Active]; atorvastatin oral [Active]; Carbamazepine Oral [Active]; clopidogrel oral [Active]; Metoprolol Tartrate Oral [Active]; Nitroglycerin SL [Active]; - PMHx: 18:34 Cerebrovascular accident; Chronic obstructive lung disease; Hypertensive disorder; cm10 Myocardial infarction; Seizure; - Immunization history:: Adult Immunizations up to date. - Infectious Disease History:: Denies. - Social history:: Smoking status: Patient reports the use of cigarette tobacco products, smokes one-half pack cigarettes per day. ROS: 20:03 Constitutional: Negative for fever, chills, and weight loss, Eyes: Negative for injury, [place] pain, redness, and discharge, ENT: Negative for injury, pain, and discharge, Neck: Negative for injury, pain, and swelling, Abdomen/GI: Negative for abdominal pain, nausea, vomiting, diarrhea, and constipation, Back: Negative for injury and pain, : Negative for injury, bleeding, discharge, and swelling, MS/Extremity: Negative for injury and deformity, Skin: Negative for injury, rash, and discoloration, Neuro: Negative for headache, weakness, numbness, tingling, and seizure, Psych: Negative for depression, anxiety, suicide ideation, homicidal ideation, and hallucinations, Allergy/Immunology: Negative for hives, rash, and allergies, Endocrine: Negative for neck swelling, polydipsia, polyuria, polyphagia, and marked weight changes, Hematologic/Lymphatic: Negative for swollen nodes, abnormal bleeding, and unusual bruising, 20:03 Cardiovascular: Positive for chest pain, of the chest, 20:03 Respiratory: Positive for cough, shortness of breath, Exam: 20:03 Constitutional: This is a well developed, well nourished patient who is awake, alert, ju[place] and in no acute distress. Head/Face: Normocephalic, atraumatic. Eyes: Pupils equal round and reactive to light, extra-ocular motions intact. Lids and lashes normal. Conjunctiva and sclera are non-icteric and not injected. Cornea within normal limits. Periorbital areas with no swelling, redness, or edema. ENT: Nares patent. No nasal discharge, no septal abnormalities noted. Tympanic membranes are normal and external auditory canals are clear. Oropharynx with no redness, swelling, or masses, exudates, or evidence of obstruction, uvula midline. Mucous membranes moist. Neck: Trachea midline, no thyromegaly or masses palpated, and no cervical lymphadenopathy. Supple, full range of motion without nuchal rigidity, or vertebral point tenderness. No Meningismus. Chest/axilla: Normal chest wall appearance and motion. Nontender with no deformity. No lesions are appreciated. Cardiovascular: Regular rate and rhythm with a normal S1 and S2. No gallops, murmurs, or rubs. Normal PMI, no JVD. No pulse deficits. Respiratory: Lungs have equal breath sounds bilaterally, clear to auscultation and percussion. No rales, rhonchi or wheezes noted. No increased work of breathing, no retractions or nasal flaring. Abdomen/GI: Soft, non-tender, with normal bowel sounds. No distension or tympany. No guarding or rebound. No evidence of tenderness throughout. Back: No spinal tenderness. No costovertebral tenderness. Full range of motion. Skin: Warm, dry with normal turgor. Normal color with no rashes, no lesions, and no evidence of cellulitis. MS/ Extremity: Pulses equal, no cyanosis. Neurovascular intact. Full, normal range of motion., bilateral aka Neuro: Awake and alert, GCS 15, oriented to person, place, time, and situation. Cranial nerves II-XII grossly intact. Motor strength 5/5 in all extremities. Sensory grossly intact. Cerebellar exam normal. Normal gait. Psych: Awake, alert, with orientation to person, place and time. Behavior, mood, and affect are within normal limits. 20:03 ECG was reviewed by the Attending Physician. 20:03 Musculoskeletal/extremity: Extremities: all appear grossly normal, with no appreciated pain with palpation, ROM: no acute changes, Circulation is intact in all extremities. Sensation intact. Compartment Syndrome exam of affected extremity: is normal. DVT Exam: No signs of deep vein thrombosis. no pain, no swelling, no tenderness, negative Homans' sign noted on exam, no appreciated bluish discoloration, no erythema, no increased warmth, 21:01 ECG was reviewed by the Attending Physician. [facility] Vital Signs: 18:32 Weight 56.7 kg; Height 5 ft. 2 in. ; Pain 10/10; cm10 18:59 BP 135 / 94; Pulse 84; Resp 15; Temp 97.1(TE); Pulse Ox 100% ; cm10 21:19 BP 128 / 91; Pulse 81; Resp 18; Pulse Ox 100% on R/A; br2 18:32 Body Mass Index 22.86 (56.70 kg, 157.48 cm) cm10 18:32 Pain Scale: Adult cm10 MDM: 19:17 Medical Screening Exam initiated juan [place] 20:04 Differential diagnosis: abnormal EKG, acute myocardial infarction, acute pericarditis, [place] anxiety, chest wall pain, Cholelithiasis costochondritis, esophagitis, gastritis, herpes zoster, hiatal hernia, myocarditis, pancreatitis, peptic ulcer disease, pneumonia, pulmonary embolus, stable angina, thoracic aortic disection, unstable angina. HEART Score: History: Slightly Suspicious (0), ECG: Non specific repolarization disturbance / LBTB / PM (1), Age: > 45 and < 65 years (1), Risk Factors: > or = 3 Risk factors for atherosclerotic disease (2), [Hypercholesterolemia] [Hypertension] [Active Smoker] [+ Family HX] Troponin: < or = 1 x Normal Limit (0). The patient was not given aspirin in the Emergency Department. Not indicated due to patient's past medical history. YEVGENIY Risk Score: 1 - Three or more CAD risk factors, 1- Known CAD, TOTAL SCORE = 2. Data reviewed: vital signs, nurses notes, EMS record, lab test result(s), EKG, radiologic studies, plain films. Consideration of Admission/Observation Escalation of care including admission/observation considered. I considered the following discharge prescriptions or medication management in the emergency department Medications were administered in the Emergency Department. See MAR. Independent interpretation of the following test(s) in the Emergency Department EKG: See my EKG interpretation above. Test considered but Not performed: Ultrasound no 2 d echo. Care significantly affected by the following chronic conditions: Hypertension, Chronic Obstructive Pulmonary Disease, tobacco abuse. 03/01 19:18 Order name: Troponin High Sensitivity; Complete Time: 20:48 [facility] 03/01 19:18 Order name: EKG; Complete Time: 19:18 [facility] 03/01 19:18 Order name: EKG - Nurse/Tech; Complete Time: 21:30 juan [place]go EC:01 Rate is 82 beats/min. Rhythm is regular. QRS [place] is Normal. OR interval is normal. QRS [place] interval is normal. QT interval is normal. No Q waves. T waves are Normal. No ST changes noted. Clinical impression: Abnormal EKG without significant change and No evidence of ischemia. Interpreted by me. Reviewed by me. Administered Medications: 21:18 Drug: predniSONE PO 40 mg PO once Route: PO; br2 21:34 Follow up: Response: No adverse reaction br2 21:18 Drug: Levalbuterol Inhalation 2.5 mg Inhalation once Route: Inhalation; br2 21:35 Follow up: Response: No adverse reaction br2 Disposition Summary: 03/01/24 21:01 Discharge Ordered Notes: Location: Home [place] Problem: new juan [place]go Symptoms: have improved [place]an [place] Condition: Stable [place] Diagnosis - Chest pain, unspecified ju[place] - Tobacco abuse counseling juan [place]go - Tobacco use juan [place]go - COPD/ Chronic obstructive pulmonary disease, unspecified juan [place]go Followup: juan [place] - With: Private Physician - When: 2 - 3 days - Reason: Recheck today's complaints, Continuance of care, Re-evaluation by your physician Followup: [place] - With: Josse Olson MD - When: 2 - 3 days - Reason: Recheck today's complaints, Re-evaluation by your physician Discharge Instructions: - Discharge Summary Sheet juan [place] - Nonspecific Chest Pain, Adult juan [place]go - Chronic Obstructive Pulmonary Disease juan [place]go - Self-Destructive Behavior juan [place]go - Steps to Quit Smoking juan [place]go - Health Risks of Smoking juan [place] - Nonspecific Chest Pain, Adult, [id number] juan diego - Steps to Quit Smoking, [id number] [facility] Forms: - Medication Reconciliation Form juan [place] - Antibiotic Education ju[place] - Prescription Opioid Use juan [place] - Patient Portal Instructions [facility] - Leadership Thank You Letter [facility] Prescriptions: - albuterol sulfate 90 mcg/actuation Inhalation HFA Aerosol Inhaler - inhale 2 puff INHALATION route every 4 to 6 hours as needed for shortness of [place] breath or wheezing; 1 unit; Refills: 0, Product Selection Permitted - Pepcid 20 mg Oral tablet - take 1 tablet ORAL route every 12 hours for 21 days; 42 tablet; Refills: 0, [place] Product Selection Permitted - Prednisone 20 mg Oral Tablet - take 2 tablets ORAL route once daily for 5 days; 10 tablet; Refills: 0, Product [facility] Selection Permitted Signatures: Dispatcher [employer] EDMS Michael Grimm MD MD cha Martinez, Clarissa, RN RN cm10 Destiney Moura, RN RN br2 Corrections: (The following items were deleted from the chart) 19:18 19:18 Troponin High Sensitivity+C.LAB.BRZ ordered. EDNY EDMS
--- NOTE | 2024-03-01 21:02 | ER ---
Nurse's Notes [facility] Name: Geetha Khan Age: 48 yrs Sex: Female : 1975 Arrival Date: 03/01/2024 Time: 18:29 Bed 18 Private MD: Diagnosis: Chest pain, unspecified;Tobacco abuse counseling;Tobacco use;COPD/ Chronic obstructive pulmonary disease, unspecified Presentation: 03/01 18:32 Chief complaint: EMS states: CALLED TO PATIENTS HOME DUE TO PATIENT HAVING CHEST PAIN. cm10 PT STATES THAT THE PAIN IS TO THE CENTER OF HER CHEST. PT DESCRIBES THE PAIN TIGHTNESS AND IS SIMILAR TO HER PREVIOUS PAIN. PT ALSO REPORTS SOME SHORTNESS OF BREATH. RESPIRATIONS EVEN AND UNLABORED IN TRIAGE. Coronavirus screen: Client denies travel out of the [place] in the last 14 days. Ebola Screen: Patient denies travel to an Ebola-affected area in the 21 days before illness onset. No symptoms or risks identified at this time. Initial Sepsis Screen: Does the patient meet any 2 criteria? No. Patient's initial sepsis screen is negative. Does the patient have a suspected source of infection? No. Patient's initial sepsis screen is negative. Risk Assessment: Do you want to hurt yourself or someone else? Patient reports no desire to harm self or others. Onset of symptoms was March 01, 2024. 18:32 Method Of Arrival: EMS: [facility] 10 18:59 Acuity: CORRINA 3 cm10 Triage Assessment: 19:00 General: Appears in no apparent distress. comfortable, Behavior is calm, cooperative. cm10 Neuro: No deficits noted. Level of Consciousness is awake, alert, obeys commands, Oriented to person, place, time, situation, Appropriate for age. Historical: - Allergies: 18:34 Aspirin; cm10 18:34 CRANBERRY; cm10 18:34 FISH PRODUCT DERIVATIVES; cm10 18:34 GRAPEFRUIT; cm10 18:34 SHELLFISH; cm10 - Home Meds: 18:34 lisinopril Oral [Active]; amlodipine oral [Active]; Zofran Oral [Active]; quetiapine cm10 oral [Active]; atorvastatin oral [Active]; Carbamazepine Oral [Active]; clopidogrel oral [Active]; Metoprolol Tartrate Oral [Active]; Nitroglycerin SL [Active]; - PMHx: 18:34 Cerebrovascular accident; Chronic obstructive lung disease; Hypertensive disorder; cm10 Myocardial infarction; Seizure; - Immunization history:: Adult Immunizations up to date. - Infectious Disease History:: Denies. - Social history:: Smoking status: Patient reports the use of cigarette tobacco products, smokes one-half pack cigarettes per day. Screenin:00 [facility] ED Fall Risk Assessment (Adult) History of falling in the last 3 months, br2 including since admission No falls in past 3 months (0 pts) Confusion or Disorientation No (0 pts) Intoxicated or Sedated No (0 pts) Impaired Gait Yes (1 pt) Mobility Assist Device Used Yes (1 pt) Altered Elimination No (0 pt) Score/Fall Risk Level 0 - 2 = Low Risk Oriented to surroundings. Abuse screen: Denies threats or abuse. Denies injuries from another. Nutritional screening: No deficits noted. Tuberculosis screening: No symptoms or risk factors identified. Assessment: 20:00 Reassessment: Patient and/or family updated on plan of care and expected duration. Pain br2 level reassessed. Patient is alert, oriented x 3, equal unlabored respirations, skin warm/dry/pink. General: Appears in no apparent distress. comfortable, Behavior is calm, cooperative. Pain: Complains of pain in anterior aspect of right upper chest, anterior aspect of left upper chest and mid-sternal area Pain does not radiate. Pain currently is 10 out of 10 on a pain scale. Quality of pain is described as aching. Pain: Pain began 1 hour ago. Neuro: Mullen Agitation-Sedation Scale (RASS): 0 - Alert and Calm Level of Consciousness is awake, alert, obeys commands, Oriented to person, place, time, situation. Cardiovascular: Reports chest pain, Capillary refill < 3 seconds Patient's skin is warm and dry. Respiratory: Airway is patent Respiratory effort is even, unlabored, Respiratory pattern is regular, symmetrical. GI: No signs and/or symptoms were reported involving the gastrointestinal system. : No signs and/or symptoms were reported regarding the genitourinary system. EENT: No signs and/or symptoms were reported regarding the EENT system. Derm: No signs and/or symptoms reported regarding the dermatologic system. Musculoskeletal: No signs and/or symptoms reported regarding the musculoskeletal system. Vital Signs: 18:32 Weight 56.7 kg; Height 5 ft. 2 in. ; Pain 10/10; cm10 18:59 BP 135 / 94; Pulse 84; Resp 15; Temp 97.1(TE); Pulse Ox 100% ; cm10 21:19 BP 128 / 91; Pulse 81; Resp 18; Pulse Ox 100% on R/A; br2 18:32 Body Mass Index 22.86 (56.70 kg, 157.48 cm) cm10 18:32 Pain Scale: Adult cm10 ED Course: 18:31 Patient arrived in ED. im 18:36 Arm band placed on right wrist. Patient placed in waiting room. cm10 19:00 Triage completed. cm10 19:17 Michael Grimm MD is Attending Physician. [place] 20:00 Patient has correct armband on for positive identification. Placed in gown. Bed in low br2 position. Call light in reach. Side rails up X 1. Provided Education on: PLAN OF CARE. monitor tech on. 20:00 Inserted saline lock: 24 gauge in right hand, using aseptic technique. Blood collected. br2 Flushed with 10 mL NS. 20:15 Destiney Moura, YANETH is Primary Nurse. br2 20:56 EKG done, by ED staff, reviewed by Michael Grimm MD. oe 21:01 Josse Olson MD is Referral Physician. [place] 21:34 IV discontinued, intact, bleeding controlled, No redness/swelling at site. Pressure br2 dressing applied. 21:35 No provider procedures requiring assistance completed. br2 Administered Medications: 21:18 Drug: predniSONE PO 40 mg PO once Route: PO; br2 21:34 Follow up: Response: No adverse reaction br2 21:18 Drug: Levalbuterol Inhalation 2.5 mg Inhalation once Route: Inhalation; br2 21:35 Follow up: Response: No adverse reaction br2 Medication: 21:35 VIS not applicable for this client. br2 Outcome: 21:01 Discharge ordered by . ju[place] 21:34 Discharged to home via wheelchair, br2 21:34 Condition: improved 21:34 Discharge instructions given to patient, Instructed on discharge instructions, follow up and referral plans. medication usage, Demonstrated understanding of instructions, follow-up care, medications, Prescriptions given X 3, 21:35 Patient left the ED. br2 Signatures: Michael Grimm MD MD cha Espinosa, Orlando oe Mendoza Verna im Bill, Kelsey, RN RN cm10 Destiney Moura, RN RN br2
[2024-03-01] MEDS ORDERED: LEVALBUTEROL 1.25 MG/3 ML NEB ONE (21:13)
[2024-03-01] MEDS ORDERED: predniSONE 20 MG TAB ONE (21:13)
[2024-03-01 22:09] VITALS: TEMP 97.1; O2SAT 100
[2024-03-01 22:10] VITALS: BP 128/91
--- NOTE | 2024-03-03 12:02 | EKG ---
Test Date: 2024-03-01 Test Time: 20:48:36 Mumps Developer: SOLO MEASUREMENT RESULTS: Intervals: Rate: 82 OR: 180 QRSD: 80 QT: 390 QTc: 455 [place]: P: 58 OR: 180 QRS: 10 T: 154 INTERPRETIVE STATEMENTS: Normal sinus rhythm Left ventricular hypertrophy with repolarization abnormality Abnormal ECG Compared to ECG 02/29/2024 22:10:07 No significant changes Electronically Signed On 03-03-24 12:00:52 SACK SEWER MACHINE by Alan Garay
== END 2024-03-01 21:35 | disposition home or self-care (01) ==
LOC: ER 18:29
DX: R07.9 Chest pain, unspecified (principal); J44.9 Chronic obstructive pulmonary disease, unspecified; Z71.6 Tobacco abuse counseling; Z72.0 Tobacco use; I10 Essential (primary) hypertension; I25.2 Old myocardial infarction
CPT/HCPCS: 93005; 36415; 84484; 99285; J7512; J7614

== ENCOUNTER 2024-03-03 20:44 | Emergency (ER) | payer OTHER ==
[2024-03-03] MEDS ORDERED: KETOROLAC 10 MG TAB ONE (21:31)
[2024-03-03] MEDS ORDERED: DIAZEPAM 5 MG TABLET ONE (21:31)
[2024-03-03] MEDS ORDERED: HYDROCODONE/APAP 5/325 MG TAB ONE (21:31)
--- NOTE | 2024-03-03 22:09 | EDPHYS ---
Physician Documentation [facility] Name: Geetha Khan Age: 48 yrs Sex: Female : 1975 Arrival Date: 03/03/2024 Time: 20:44 Bed DX3 Private MD: ED Physician Uriel Cannon HPI: 03/03 21:14 This 48 yrs old Female presents to ER via EMS with complaints of Chest Pain. 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 Patient was seen here yesterday for the same problem. . Historical: - Allergies: 21:01 Aspirin; tm6 21:01 CRANBERRY; tm6 21:01 FISH PRODUCT DERIVATIVES; tm6 21:01 GRAPEFRUIT; tm6 21:01 SHELLFISH; tm6 - PMHx: 21:01 Cerebrovascular accident; Chronic obstructive lung disease; Hypertensive disorder; tm6 Myocardial infarction; Seizure; - PSHx: 21:01 None; tm6 - Immunization history:: Flu vaccine is up to date. - Infectious Disease History:: Denies. - Social history:: Smoking status: Patient reports the use of cigarette tobacco products, smokes one-half pack cigarettes per day. - Family history:: not pertinent. ROS: 22:34 Constitutional: Negative for fever, chills, and weight loss, positive for chest pain sp4 positive for generalized anxiety 22:34 All other systems are negative, Exam: 22:34 Constitutional: This is a well developed, well nourished patient who is awake, alert, sp4 and in no acute distress. Patient is in wheelchair, left-sided weakness from prior longstanding left-sided hemiparesis Head/Face: Normocephalic, atraumatic. Eyes: Pupils equal round and reactive to light, extra-ocular motions intact. Lids and lashes normal. Conjunctiva and sclera are not injected. Cornea within normal limits. Periorbital areas with no swelling, redness, or edema. ENT: Nares patent. No nasal discharge, no septal abnormalities noted. Tympanic membranes are normal and external auditory canals are clear. Oropharynx with no redness, swelling, or masses, exudates, or evidence of obstruction, uvula midline. Mucous membranes moist. Neck: Trachea midline, no thyromegaly or masses palpated, and no cervical lymphadenopathy. Supple, full range of motion without nuchal rigidity, or vertebral point tenderness. Chest/axilla: Normal chest wall appearance and motion. Nontender with no deformity. No lesions are appreciated. Cardiovascular: Regular rate and rhythm with a normal S1 and S2. No gallops, murmurs, or rubs. Normal PMI, no JVD. No pulse deficits. Respiratory: Lungs have equal breath sounds bilaterally, clear to auscultation and percussion. No rales, rhonchi or wheezes noted. No increased work of breathing, no retractions or nasal flaring. Abdomen/GI: Soft, with normal bowel sounds. No distension or tympany. No guarding or rebound. No evidence of tenderness throughout. Back: No spinal tenderness. No costovertebral tenderness. Skin: Warm, dry with normal turgor. Normal color with no rashes, no lesions, and no evidence of cellulitis. MS/ Extremity: Pulses equal, no cyanosis. Left longstanding hemiparesis with left-sided muscular atrophy and contractures. Neuro: Awake and alert, GCS 15, oriented to person, place, time, and situation. Cranial nerves II-XII grossly intact. [place] of prior left-sided hemiparesis unchanged from prior exam 22:38 ECG was reviewed by the Attending Physician. EKG at 205 normal sinus rhythm rate 81, sp4 left ventricular hypertrophy, otherwise unremarkable Vital Signs: 21:00 BP 137 / 115; Pulse 81; Resp 19; Temp 98.5(O); Pulse Ox 100% on R/A; MAP 121 mmHg; tm6 Weight 56.7 kg; Height 5 ft. 2 in. ; Pain 10/10; 23:10 BP 128 / 88; Pulse 78; Resp 17; Pulse Ox 97% ; vc1 21:00 Body Mass Index 22.86 (56.70 kg, 157.48 cm) tm6 21:00 Pain Scale: Adult tm6 [place] Coma Score: 22:34 Eye Response: spontaneous(4). Motor Response: obeys commands(6). Verbal Response: sp4 oriented(5). Total: 15. MDM: 21:28 Medical Screening Exam initiated sp4 22:39 Differential diagnosis: acute pericarditis, anxiety, costochondritis, esophagitis, sp4 gastritis. Data reviewed: vital signs, nurses notes, old medical records, EKG. ED course: Anxiety improved after medications. Patient stable for discharge home. Advised follow-up with cement kiln operator. Also advised follow-up with wool dyer for persistent chest pains.. 03/03 21:18 Order name: EKG - Nurse/Tech; Complete Time: 21:23 sp4 EC:58 Rate is 81 beats/min. Rhythm is regular, Normal Sinus Rhythm. QRS [place] is Normal. [place] sp4 interval is normal. QRS interval is normal. QT interval is normal. No Q waves. T waves are Normal. No ST changes noted. Clinical impression: No evidence of ischemia. Interpreted by me. Reviewed by me. Administered Medications: 21:35 Drug: HYDROcodone-acetaminophen PO 5 mg-325 mg 2 tabs PO once Route: PO; tm6 21:35 Drug: Diazepam PO 5 mg PO once Route: PO; tm6 21:35 Drug: Ketorolac PO 10 mg PO once Route: PO; tm6 Disposition Summary: 03/03/24 22:09 Discharge Ordered Notes: Location: Home sp4 Problem: new sp4 Symptoms: have improved sp4 Condition: Stable sp4 Diagnosis - Chest pain, unspecified sp4 - Anxiety disorder, unspecified sp4 Followup: sp4 - With: Josse Olson MD - When: 7 - 10 days - Reason: Recheck today's complaints Discharge Instructions: - Discharge Summary Sheet sp4 - Nonspecific Chest Pain, Adult sp4 Forms: - Patient Portal Instructions sp4 Signatures: Uriel Cannon MD MD sp4 Greg Allen RN RN tm6
--- NOTE | 2024-03-03 22:09 | ER ---
Nurse's Notes [facility] Name: Geetha Khan Age: 48 yrs Sex: Female : 1975 Arrival Date: 03/03/2024 Time: 20:44 Bed DX3 Private MD: Diagnosis: Chest pain, unspecified;Anxiety disorder, unspecified Presentation: 03/03 21:00 Chief complaint: EMS states: CP starting 1 hour ago, difficulty breathing. Coronavirus tm6 screen: Client denies travel out of the [place] in the last 14 days. Ebola Screen: Patient negative for fever greater than or equal to 101.5 degrees Fahrenheit, and additional compatible Ebola Virus Disease symptoms Patient denies exposure to infectious person. Patient denies travel to an Ebola-affected area in the 21 days before illness onset. No symptoms or risks identified at this time. Initial Sepsis Screen: Does the patient meet any 2 criteria? No. Patient's initial sepsis screen is negative. Does the patient have a suspected source of infection? No. Patient's initial sepsis screen is negative. Risk Assessment: Do you want to hurt yourself or someone else? Patient reports no desire to harm self or others. Onset of symptoms was March 03, 2024 at 20:00. 21:00 Method Of Arrival: EMS: [facility] tm6 21:00 Acuity: CORRINA 3 tm6 Triage Assessment: 21:01 General: Appears in no apparent distress. Behavior is calm, cooperative. Pain: tm6 Complains of pain in chest Pain currently is 10 out of 10 on a pain scale. EENT: No signs and/or symptoms were reported regarding the EENT system. Neuro: Level of Consciousness is awake, alert, obeys commands, Oriented to person, place, time, situation. Cardiovascular: Reports chest pain, Patient's skin is warm and dry. Rhythm is sinus rhythm. Respiratory: Reports shortness of breath Airway is patent Respiratory effort is even, unlabored, Respiratory pattern is regular, symmetrical. GI: No signs and/or symptoms were reported involving the gastrointestinal system. Abdomen is flat, non-distended. : No signs and/or symptoms were reported regarding the genitourinary system. Derm: No signs and/or symptoms reported regarding the dermatologic system. Musculoskeletal: No signs and/or symptoms reported regarding the musculoskeletal system. Historical: - Allergies: 21:01 Aspirin; tm6 21:01 CRANBERRY; tm6 21:01 FISH PRODUCT DERIVATIVES; tm6 21:01 GRAPEFRUIT; tm6 21:01 SHELLFISH; tm6 - PMHx: 21:01 Cerebrovascular accident; Chronic obstructive lung disease; Hypertensive disorder; tm6 Myocardial infarction; Seizure; - PSHx: 21:01 None; tm6 - Immunization history:: Flu vaccine is up to date. - Infectious Disease History:: Denies. - Social history:: Smoking status: Patient reports the use of cigarette tobacco products, smokes one-half pack cigarettes per day. - Family history:: not pertinent. Screenin:00 [facility] ED Fall Risk Assessment (Adult) History of falling in the last 3 months, vc1 including since admission Yes- fall prone (multiple falls) (3 pts) Confusion or Disorientation No (0 pts) Intoxicated or Sedated No (0 pts) Impaired Gait Yes (1 pt) Mobility Assist Device Used Yes (1 pt) Altered Elimination Yes (1 pt) Score/Fall Risk Level 3 or more points = High Risk Oriented to surroundings, Maintained a safe environment, Educated pt \T\ family on fall prevention, incl call for assistance when getting out of bed. Abuse screen: Denies threats or abuse. Nutritional screening: No deficits noted. Tuberculosis screening: No symptoms or risk factors identified. Vital Signs: 21:00 BP 137 / 115; Pulse 81; Resp 19; Temp 98.5(O); Pulse Ox 100% on R/A; MAP 121 mmHg; tm6 Weight 56.7 kg; Height 5 ft. 2 in. ; Pain 10/10; 23:10 BP 128 / 88; Pulse 78; Resp 17; Pulse Ox 97% ; vc1 21:00 Body Mass Index 22.86 (56.70 kg, 157.48 cm) tm6 21:00 Pain Scale: Adult tm6 [place] Coma Score: 22:34 Eye Response: spontaneous(4). Motor Response: obeys commands(6). Verbal Response: sp4 oriented(5). Total: 15. ED Course: 20:55 Patient arrived in ED. im 21:00 Arm band placed on right wrist. EKG completed in triage. Results shown to MD. tm6 21:01 Triage completed. tm6 21:14 Uriel Cannon MD is Attending Physician. sp4 22:08 Josse Olson MD is Referral Physician. sp4 23:09 Patient has correct armband on for positive identification. treated in diagnostic are vc1 from wheelchair. Provided Education on: f/u with senior sales associate. Pulse ox on. NIBP on. 23:09 No provider procedures requiring assistance completed. Patient did not have IV access vc1 during this emergency room visit. Patient maintains SpO2 saturation greater than 95% on room air. Administered Medications: 21:35 Drug: HYDROcodone-acetaminophen PO 5 mg-325 mg 2 tabs PO once Route: PO; tm6 21:35 Drug: Diazepam PO 5 mg PO once Route: PO; tm6 21:35 Drug: Ketorolac PO 10 mg PO once Route: PO; tm6 Medication: 23:09 VIS not applicable for this client. vc1 Outcome: : Discharge ordered by . sp4 23:09 Discharged to home via wheelchair, vc1 23:09 Condition: good 23:09 Discharge instructions given to patient, Instructed on discharge instructions, follow up and referral plans. Demonstrated understanding of instructions, follow-up care, 23:11 Patient left the ED. vc1 Signatures: Syeda Bruce RN RN vc1 Uriel Cannon MD MD sp4 Verna Jhaveri Tawney RN RN tm6
[2024-03-03 23:17] VITALS: TEMP 98.5
[2024-03-03 23:18] VITALS: BP 128/88; O2SAT 97
--- NOTE | 2024-03-05 11:29 | EKG ---
Test Date: 2024-03-03 Test Time: 20:58:17 Nurse Paralegal: KARON MEASUREMENT RESULTS: Intervals: Rate: 81 [place]: 162 QRSD: 82 QT: 378 QTc: 439 [place]: P: 48 [place]: 162 QRS: -5 T: 131 INTERPRETIVE STATEMENTS: Normal sinus rhythm Left ventricular hypertrophy with repolarization abnormality Inferior infarct, age undetermined Abnormal ECG Compared to ECG 03/01/2024 20:48:36 Myocardial infarct finding now present Electronically Signed On 03-05-24 11:27:55 GEOLOGICAL TECHNICIAN by Alan Garay
== END 2024-03-03 23:11 | disposition home or self-care (01) ==
LOC: ER 20:44
DX: F41.9 Anxiety disorder, unspecified (principal); F17.210 Nicotine dependence, cigarettes, uncomplicated
CPT/HCPCS: 93005; 99284

== ENCOUNTER 2024-03-04 19:38 | Emergency (ER) | payer OTHER ==
[2024-03-04] MEDS ORDERED: KETOROLAC 10 MG TAB ONE (20:26)
[2024-03-04] MEDS ORDERED: HYDROCODONE/APAP 5/325 MG TAB ONE (20:26)
--- NOTE | 2024-03-04 21:33 | ER ---
Nurse's Notes [facility] Name: Geetha Khan Age: 48 yrs Sex: Female : 1975 Arrival Date: 03/04/2024 Time: 19:38 Bed 19 [facility] MD: Diagnosis: Acute Left shoulder contusion, Acute Left shoulder Sprain, Acute Fall At home Presentation: 03/04 19:46 Chief complaint: Patient states: Fell out of her bed after falling asleep sitting up. jb4 Pain to left shoulder, hip and left side of her head. Coronavirus screen: At this time, the client does not indicate any symptoms associated with coronavirus-19. Ebola Screen: No symptoms or risks identified at this time. Initial Sepsis Screen: Does the patient meet any 2 criteria? No. Patient's initial sepsis screen is negative. Does the patient have a suspected source of infection?. Risk Assessment: Do you want to hurt yourself or someone else? Patient reports no desire to harm self or others. Onset of symptoms was March 04, 2024. Transition of care: patient was not received from another setting of care. 19:46 Method Of Arrival: EMS: [facility] jb4 19:46 Acuity: CORRINA 4 jb4 Historical: - Allergies: 19:40 Aspirin; jb4 19:40 CRANBERRY; jb4 19:40 FISH PRODUCT DERIVATIVES; jb4 19:40 GRAPEFRUIT; jb4 19:40 SHELLFISH; jb4 - PMHx: 19:40 Cerebrovascular accident; Seizure; Hypertensive disorder; Myocardial infarction; jb4 Chronic obstructive lung disease; - Immunization history:: Adult Immunizations up to date. - Infectious Disease History:: Denies. - Social history:: Smoking status: Patient denies any tobacco usage or history of. - Family history:: not pertinent. Screenin:01 [facility] ED Fall Risk Assessment (Adult) History of falling in the last 3 months, jb4 including since admission Yes- single mechanical fall (1 pt) Confusion or Disorientation No (0 pts) Intoxicated or Sedated No (0 pts) Impaired Gait No (0 pts) Mobility Assist Device Used No (0 pt) Altered Elimination No (0 pt) Score/Fall Risk Level 0 - 2 = Low Risk Oriented to surroundings, Maintained a safe environment. Abuse screen: Denies threats or abuse. Nutritional screening: No deficits noted. Tuberculosis screening: No symptoms or risk factors identified. Assessment: 22:01 General: Appears in no apparent distress. comfortable, Behavior is calm, cooperative, jb4 appropriate for age. Pain: Complains of pain in Left side of head, hip, shoulder Pain does not radiate. Pain currently is 10 out of 10 on a pain scale. Vital Signs: 19:57 BP 137 / 92; Pulse 84; Resp 16; Temp 97.2(O); Pulse Ox 100% ; Weight 58.51 kg; Height 5 jb4 ft. 2 in. ; 19:57 Body Mass Index 23.59 (58.51 kg, 157.48 cm) jb4 [place] Coma Score: 03/05 19:47 Eye Response: spontaneous(4). Motor Response: obeys commands(6). Verbal Response: sp4 oriented(5). Total: 15. ED Course: 03/04 19:39 Patient arrived in ED. jb4 19:46 Arm band placed on right wrist. jb4 19:47 Triage completed. jb4 19:57 Jaziel Storm RN is Primary Nurse. jb4 20:02 Uriel Cannon MD is Attending Physician. sp4 20:28 Shoulder Left (2 View) XRAY In Process Unspecified. EDMS 22:01 Patient has correct armband on for positive identification. Bed in low position. Call jb4 light in reach. Side rails up X 1. Provided Education on: discharge instructions.. 22:01 No provider procedures requiring assistance completed. Patient did not have IV access jb4 during this emergency room visit. Administered Medications: 20:31 Drug: HYDROcodone-acetaminophen PO 5 mg-325 mg 2 tabs PO once Route: PO; jb4 21:00 Follow up: Response: No adverse reaction; Marked relief of symptoms jb4 20:31 Drug: Ketorolac PO 10 mg PO once Route: PO; jb4 21:00 Follow up: Response: No adverse reaction; Marked relief of symptoms; Pain is decreased jb4 Medication: 22:01 VIS not applicable for this client. jb4 Outcome: 21:32 Discharge ordered by . sp4 22:01 Discharged to home via wheelchair, with family, jb4 22:01 Condition: stable 22:01 Discharge instructions given to patient, Instructed on discharge instructions, follow up and referral plans. medication usage, Demonstrated understanding of instructions, follow-up care, medications, Prescriptions given X 22:03 Patient left the ED. jb4 Signatures: Dispatcher [employer] Jaziel Cameron RN RN jb4 Uriel Cannon MD MD sp4
--- NOTE | 2024-03-04 21:33 | EDPHYS ---
Physician Documentation [facility] Name: Geetha Minor Age: 48 yrs Sex: Female : 1975 Arrival Date: 03/04/2024 Time: 19:38 Bed 19 Private MD: ED Physician Uriel Cannon HPI: 03/04 20:04 This 48 yrs old Female presents to ER via EMS with complaints of Gen sp4 complaint. 20:13 Patient presents with EMS, complaints of acute fall with left shoulder pain.. sp4 03/05 19:47 Patient presents with EMS with complaint of accidental fall at home and left shoulder sp4 pain. Patient denied any other pain. Historical: - Allergies: 03/04 19:40 Aspirin; jb4 19:40 CRANBERRY; jb4 19:40 FISH PRODUCT DERIVATIVES; jb4 19:40 GRAPEFRUIT; jb4 19:40 SHELLFISH; jb4 - PMHx: 19:40 Cerebrovascular accident; Seizure; Hypertensive disorder; Myocardial infarction; jb4 Chronic obstructive lung disease; - Immunization history:: Adult Immunizations up to date. - Infectious Disease History:: Denies. - Social history:: Smoking status: Patient denies any tobacco usage or history of. - Family history:: not pertinent. ROS: 03/05 19:47 Constitutional: Negative for fever, chills, and weight loss, positive left shoulder sp4 pain All other systems are negative, Exam: 19:47 Constitutional: This is a well developed, well nourished patient who is awake, alert, sp4 left-sided hemiparesis that is chronic, Head/Face: Normocephalic, atraumatic. Eyes: Pupils equal round and reactive to light, extra-ocular motions intact. Lids and lashes normal. Conjunctiva and sclera are not injected. Cornea within normal limits. Periorbital areas with no swelling, redness, or edema. ENT: Nares patent. No nasal discharge, no septal abnormalities noted. Tympanic membranes are normal and external auditory canals are clear. Oropharynx with no redness, swelling, or masses, exudates, or evidence of obstruction, uvula midline. Mucous membranes moist. Neck: Trachea midline, no thyromegaly or masses palpated, and no cervical lymphadenopathy. Supple, full range of motion without nuchal rigidity, or vertebral point tenderness. Chest/axilla: Normal chest wall appearance and motion. Nontender with no deformity. No lesions are appreciated. Cardiovascular: Regular rate and rhythm with a normal S1 and S2. No gallops, murmurs, or rubs. Normal PMI, no JVD. No pulse deficits. Respiratory: Lungs have equal breath sounds bilaterally, clear to auscultation and percussion. No rales, rhonchi or wheezes noted. No increased work of breathing, no retractions or nasal flaring. Abdomen/GI: Soft, with normal bowel sounds. No distension or tympany. No guarding or rebound. No evidence of tenderness throughout. Back: No spinal tenderness. No costovertebral tenderness. Skin: Warm, dry with normal turgor. Normal color with no rashes, no lesions, and no evidence of cellulitis. MS/ Extremity: Pulses equal, no cyanosis. Positive left shoulder tenderness, left-sided muscular atrophy and contracture secondary to prior hemiparesis Neuro: Awake and alert, GCS 15, oriented to person, place, time, and situation. Chronic left-sided hemiparesis. Psych: Awake, alert, with orientation to person, place and time. Behavior, mood, and affect are within normal limits Vital Signs: 03/04 19:57 BP 137 / 92; Pulse 84; Resp 16; Temp 97.2(O); Pulse Ox 100% ; Weight 58.51 kg; Height 5 jb4 ft. 2 in. ; 19:57 Body Mass Index 23.59 (58.51 kg, 157.48 cm) jb4 [place] Coma Score: 03/05 19:47 Eye Response: spontaneous(4). Motor Response: obeys commands(6). Verbal Response: sp4 oriented(5). Total: 15. Procedures: 19:51 Splinting: Splint applied to anterior aspect of left shoulder and left bicep using sp4 sling, applied by tech. Examined by me, post splint application: neurovascular intact, 2+ distal pulses palpable, brisk capillary refill noted, Patient tolerated well, Advised arm sling for 3 days . MDM: 03/04 20:13 Medical Screening Exam initiated sp4 03/05 19:47 Differential diagnosis: abnormal EKG, acute myocardial infarction, acute pericarditis, sp4 anxiety, chest wall pain. Data reviewed: vital signs, nurses notes, radiologic studies, plain films. 19:51 ED course: Name: GEETHA MINOR Acct Number: [id number] :1975 Age:48 Sex:F sp4 Ord Phys: Uriel Cannon MD Unit Number: [id number] [facility]: Yonatan Rae DO Status: DEP ER ER Exam Date: 03/04/24 EXAMINATION: XR LEFT SHOULDER CLINICAL INDICATION: Female, 48 years old. left shoulder pain , fall TECHNIQUE: Internal and external AP view radiograph of the left shoulder were obtained. COMPARISON: 11/25/2023 FINDINGS: No evidence of fracture or dislocation. Normal alignment. No evidence of arthropathy or other focal bone lesion. Soft tissues are unremarkable. IMPRESSION: No acute or significant abnormalities. . 03/04 20:12 Order name: Shoulder Left (2 View) XRAY sp4 03/04 20:12 Order name: Sling: Left arm sling; Complete Time: 21:43 sp4 Administered Medications: 03/04 20:31 Drug: HYDROcodone-acetaminophen PO 5 mg-325 mg 2 tabs PO once Route: PO; jb4 21:00 Follow up: Response: No adverse reaction; Marked relief of symptoms jb4 20:31 Drug: Ketorolac PO 10 mg PO once Route: PO; jb4 21:00 Follow up: Response: No adverse reaction; Marked relief of symptoms; Pain is decreased jb4 Disposition: 03/05 19:52 Chart complete. sp4 Disposition Summary: 03/04/24 21:32 Discharge Ordered Notes: Location: Home sp4 Problem: new sp4 Symptoms: have improved sp4 Condition: Stable sp4 Diagnosis - Acute Left shoulder contusion, Acute Left shoulder Sprain, Acute Fall At home sp4 Followup: sp4 - With: Private Physician - When: 7 - 10 days - Reason: Recheck today's complaints Discharge Instructions: - Discharge Summary Sheet sp4 - Contusion, [id number] sp4 Forms: - Patient Portal Instructions sp4 Prescriptions: - acetaminophen-codeine 300-30 mg Oral tablet - take 1 tablet ORAL route daily PRN pain; 15 tablet; Refills: 0, Product sp4 Selection Permitted Signatures: Dispatcher [employer] EDJaziel Malloy RN RN jb4 Uriel Cannon MD MD sp4 Corrections: (The following items were deleted from the chart) 03/04 20:12 20:12 Shoulder Left 2 View+RAD.RAD.[email or web address] ordered. EDMS EDMS
--- NOTE | 2024-03-04 22:07 | RAD REPORT ---
EXAMINATION: XR LEFT SHOULDER CLINICAL INDICATION: Female, 48 years old. left shoulder pain , fall TECHNIQUE: Internal and external AP view radiograph of the left shoulder were obtained. COMPARISON: 11/25/2023 FINDINGS: No evidence of fracture or dislocation. Normal alignment. No evidence of arthropathy or oth er focal bone lesion. Soft tissues are unremarkable. IMPRESSION: No acute or significant abnormalities.
[2024-03-04 22:11] VITALS: BP 137/92; TEMP 97.2; O2SAT 100
== END 2024-03-04 22:03 | disposition home or self-care (01) ==
LOC: ER 19:38
DX: S40.012A Contusion of left shoulder, initial encounter (principal); I10 Essential (primary) hypertension; I25.2 Old myocardial infarction; J44.9 Chronic obstructive pulmonary disease, unspecified; R56.9 Unspecified convulsions; W06.XXXA Fall from bed, initial encounter; Y93.9 Activity, unspecified; Y92.013 Bedroom of single-family (private) house as the place of occurrence of the external cause; Z91.018 Allergy to other foods; Z91.013 Allergy to seafood; Z86.73 Personal history of transient ischemic attack (TIA), and cerebral infarction without residual deficits
CPT/HCPCS: 99283

== ENCOUNTER 2024-03-05 18:47 | Emergency (ER) | payer OTHER ==
--- NOTE | 2024-03-05 19:05 | ER ---
Nurse's Notes [facility] Name: Geetha Khan Age: 48 yrs Sex: Female : 1975 Arrival Date: 03/05/2024 Time: 18:47 Bed 8 Private MD: Diagnosis: Shoulder contusion Presentation: 03/05 19:01 Chief complaint: EMS states: L shoulder pain after falling out of her bed again today. ll1 Coronavirus screen: Client denies travel out of the [place] in the last 14 days. At this time, the client does not indicate any symptoms associated with coronavirus-19. Ebola Screen: Patient denies travel to an Ebola-affected area in the 21 days before illness onset. Initial Sepsis Screen: Does the patient meet any 2 criteria? No. Patient's initial sepsis screen is negative. Does the patient have a suspected source of infection? No. Patient's initial sepsis screen is negative. Risk Assessment: Do you want to hurt yourself or someone else? Patient reports no desire to harm self or others. Onset of symptoms was March 05, 2024. 19:01 Method Of Arrival: EMS: [facility] 1 19:01 Acuity: CORRINA 4 ll1 Triage Assessment: 19:03 General: Appears uncomfortable, Behavior is calm, cooperative, appropriate for age. ll1 Pain: Complains of pain in L shoulder Quality of pain is described as aching. Musculoskeletal: Reports pain in L shoulder. 19:33 Injury Description: Lt shoulder pain. dd2 Historical: - Allergies: 19:02 Aspirin; ll1 19:02 CRANBERRY; ll1 19:02 FISH PRODUCT DERIVATIVES; ll1 19:02 GRAPEFRUIT; ll1 19:02 SHELLFISH; ll1 - PMHx: 19:02 Cerebrovascular accident; Chronic obstructive lung disease; Hypertensive disorder; ll1 Myocardial infarction; Seizure; - Immunization history:: Adult Immunizations up to date. - Infectious Disease History:: Denies. - Social history:: Smoking status: Patient denies any tobacco usage or history of. Screenin:13 [facility] ED Fall Risk Assessment (Adult) History of falling in the last 3 months, dd2 including since admission Yes- physiologic fall (2 pts) Confusion or Disorientation No (0 pts) Intoxicated or Sedated No (0 pts) Impaired Gait Yes (1 pt) Mobility Assist Device Used Yes (1 pt) Altered Elimination Yes (1 pt) Score/Fall Risk Level 3 or more points = High Risk Oriented to surroundings, Maintained a safe environment, Educated pt \T\ family on fall prevention, incl call for assistance when getting out of bed, Assessed \T\ reinforced patient's understanding of fall precautions, Hourly rounding (assess needs \T\ fall precautionary measures) done, Used ambulatory aids as needed (educated on \T\ assisted with). Abuse screen: Denies threats or abuse. Nutritional screening: No deficits noted. Tuberculosis screening: No symptoms or risk factors identified. Assessment: 19:13 General: Appears in no apparent distress. Behavior is calm, cooperative, appropriate dd2 for age. Pain: Complains of pain in anterior aspect of left shoulder Pain does not radiate. Pain currently is 3 out of 10 on a pain scale. Neuro: No deficits noted. Cardiovascular: No deficits noted. Respiratory: No deficits noted. Airway is patent Respiratory effort is even, unlabored, Respiratory pattern is regular, symmetrical. GI: No deficits noted. : No deficits noted. EENT: No deficits noted. Derm: No deficits noted. Musculoskeletal: Circulation, motion, and sensation intact. Range of motion: intact in all extremities, Reports pain in anterior aspect of left shoulder Pain is 3 out of 10 on a pain scale. Vital Signs: 19:03 BP 133 / 83; Pulse 74; Resp 17; Temp 98.1; Pulse Ox 96% ; Pain 0/10; ll1 19:13 BP 135 / 80; Pulse 76; Resp 16; Pulse Ox 96% on R/A; dd2 19:03 Pain Scale: Adult ll1 ED Course: 19:01 Patient arrived in ED. ll1 19:01 Hoa Eddy MD is Attending Physician. sp3 19:02 Triage completed. ll1 19:03 Arm band placed on Patient placed in an exam room, on a stretcher. ll1 19:13 MAGGIE GIBSON RN is Primary Nurse. dd2 19:13 Patient has correct armband on for positive identification. Fall risk band placed. Bed dd2 in low position. Call light in reach. Side rails up X2. Provided Education on: CALL LIGHT, FALL RISK AND SAFETY EDUCATION. Client placed on continuous cardiac and pulse oximetry monitoring. NIBP monitoring applied. Door closed. Noise minimized. Warm blanket given. Pillow given. Verbal reassurance given. 19:13 No provider procedures requiring assistance completed. Patient did not have IV access dd2 during this emergency room visit. Patient maintains SpO2 saturation greater than 95% on room air. Administered Medications: No medications were administered Medication: 19:13 VIS not applicable for this client. dd2 Outcome: 19:04 Discharge ordered by . sp3 19:32 Discharged to home via wheelchair, dd2 19:32 Condition: stable 19:32 Discharge instructions given to patient, Instructed on discharge instructions, follow up and referral plans. safety practices, Demonstrated understanding of instructions, follow-up care, SAFETY PRACTICES AND FALL RISKS 19:33 Patient left the ED. dd2 Signatures: Ruth East RN RN ll1 Hoa Eddy MD MD sp3 MAGGIE GIBSON RN RN dd2
--- NOTE | 2024-03-05 19:05 | EDPHYS ---
Physician Documentation [facility] Name: Geetha Khan Age: 48 yrs Sex: Female : 1975 Arrival Date: 03/05/2024 Time: 18:47 Bed 8 Private MD: ED Physician Hoa Eddy HPI: 03/05 19:03 This 48 yrs old Female presents to ER via EMS with complaints of Shoulder Injury, Fall sp3 Injury. 19:03 48-year-old female with PMH above well-known to the ED presents with recurrent left sp3 shoulder pain after a recent ground-level fall. She was evaluated for the same injury before with negative imaging. No new symptoms. She denies head injury, LOC, neck pain, chest pain, shortness of breath, any other extremity pain, or any other signs or symptoms on ROS at this time.. Historical: - Allergies: 19:02 Aspirin; ll1 19:02 CRANBERRY; ll1 19:02 FISH PRODUCT DERIVATIVES; ll1 19:02 GRAPEFRUIT; ll1 19:02 SHELLFISH; ll1 - PMHx: 19:02 Cerebrovascular accident; Chronic obstructive lung disease; Hypertensive disorder; ll1 Myocardial infarction; Seizure; - Immunization history:: Adult Immunizations up to date. - Infectious Disease History:: Denies. - Social history:: Smoking status: Patient denies any tobacco usage or history of. ROS: 19:03 Constitutional: Negative for fever, chills, and weight loss, Eyes: Negative for injury, sp3 pain, redness, and discharge, ENT: Negative for injury, pain, and discharge, Neck: Negative for injury, pain, and swelling, Cardiovascular: Negative for chest pain, palpitations, and edema, Respiratory: Negative for shortness of breath, cough, wheezing, and pleuritic chest pain, Abdomen/GI: Negative for abdominal pain, nausea, vomiting, diarrhea, and constipation, Back: Negative for injury and pain, : Negative for injury, bleeding, discharge, and swelling, Skin: Negative for injury, rash, and discoloration, Neuro: Negative for headache, weakness, numbness, tingling, and seizure, Psych: Negative for depression, anxiety, suicide ideation, homicidal ideation, and hallucinations, Allergy/Immunology: Negative for hives, rash, and allergies, Endocrine: Negative for neck swelling, polydipsia, polyuria, polyphagia, and marked weight changes, Hematologic/Lymphatic: Negative for swollen nodes, abnormal bleeding, and unusual bruising, 19:03 All other systems are negative, Exam: 19:04 Constitutional: This is a well developed, well nourished patient who is awake, alert, sp3 and in no acute distress. Head/Face: Normocephalic, atraumatic. Eyes: Pupils equal round and reactive to light, extra-ocular motions intact. Lids and lashes normal. Conjunctiva and sclera are non-icteric and not injected. Cornea within normal limits. Periorbital areas with no swelling, redness, or edema. Neck: Trachea midline, no thyromegaly or masses palpated, and no cervical lymphadenopathy. Supple, full range of motion without nuchal rigidity, or vertebral point tenderness. No Meningismus. Chest/axilla: Normal chest wall appearance and motion. Nontender with no deformity. No lesions are appreciated. Cardiovascular: Regular rate and rhythm with a normal S1 and S2. No gallops, murmurs, or rubs. Normal PMI, no JVD. No pulse deficits. Respiratory: Lungs have equal breath sounds bilaterally, clear to auscultation and percussion. No rales, rhonchi or wheezes noted. No increased work of breathing, no retractions or nasal flaring. Abdomen/GI: Soft, non-tender, with normal bowel sounds. No distension or tympany. No guarding or rebound. No evidence of tenderness throughout. Back: No spinal tenderness. No costovertebral tenderness. Full range of motion. Skin: Warm, dry with normal turgor. Normal color with no rashes, no lesions, and no evidence of cellulitis. Neuro: Awake and alert, GCS 15, oriented to person, place, time, and situation. Cranial nerves II-XII grossly intact. Motor strength 5/5 in all extremities. Sensory grossly intact. Cerebellar exam normal. Normal gait. Psych: Awake, alert, with orientation to person, place and time. Behavior, mood, and affect are within normal limits. 19:04 Musculoskeletal/extremity: Mild pain on the deltoid however clinically no fracture or other abnormality noted. Distal neurovascular exam is normal. Patient will be safely discharged home with OTC meds as needed.. Vital Signs: 19:03 BP 133 / 83; Pulse 74; Resp 17; Temp 98.1; Pulse Ox 96% ; Pain 0/10; ll1 19:13 BP 135 / 80; Pulse 76; Resp 16; Pulse Ox 96% on R/A; dd2 19:03 Pain Scale: Adult ll1 MDM: 19:01 Medical Screening Exam initiated sp3 Administered Medications: No medications were administered Disposition Summary: 03/05/24 19:04 Discharge Ordered Notes: Location: Home sp3 Condition: Stable sp3 Diagnosis - Shoulder contusion sp3 Followup: sp3 - With: Private Physician - When: Upon discharge from the Emergency Department - Reason: Continuance of care Discharge Instructions: - Discharge Summary Sheet sp3 - Shoulder Pain sp3 Forms: - Medication Reconciliation Form sp3 - Antibiotic Education sp3 - Prescription Opioid Use sp3 - Patient Portal Instructions sp3 - Leadership Thank You Letter sp3 Signatures: Ruth East RN RN ll1 Hoa Eddy MD MD sp3 MAGGIE GIBSON RN RN dd2
[2024-03-05 19:38] VITALS: TEMP 98.1; O2SAT 96
[2024-03-05 19:39] VITALS: BP 135/80
== END 2024-03-05 19:33 | disposition home or self-care (01) ==
LOC: ER 18:47
DX: S40.012A Contusion of left shoulder, initial encounter (principal); W18.30XA Fall on same level, unspecified, initial encounter; Y93.9 Activity, unspecified; Y92.9 Unspecified place or not applicable; J44.9 Chronic obstructive pulmonary disease, unspecified; I10 Essential (primary) hypertension; I25.2 Old myocardial infarction; R56.9 Unspecified convulsions; Z86.73 Personal history of transient ischemic attack (TIA), and cerebral infarction without residual deficits; Z91.013 Allergy to seafood; Z91.018 Allergy to other foods; Z88.5 Allergy status to narcotic agent
CPT/HCPCS: 99283

== ENCOUNTER 2024-03-05 20:46 | Emergency (ER) | payer OTHER ==
--- NOTE | 2024-03-05 21:23 | ER ---
Nurse's Notes [facility] Name: Geetha Khan Age: 48 yrs Sex: Female : 1975 Arrival Date: 03/05/2024 Time: 20:46 Bed IW1 Private MD: Diagnosis: Chest pain, unspecified;Acute anxiety, noncardiac chest pain Presentation: 03/05 21:14 Chief complaint: Patient states: chest pain X2 hours. Coronavirus screen: Client denies lg3 travel out of the [place] in the last 14 days. At this time, the client does not indicate any symptoms associated with coronavirus-19. Ebola Screen: No symptoms or risks identified at this time. Initial Sepsis Screen: Does the patient meet any 2 criteria? No. Patient's initial sepsis screen is negative. Does the patient have a suspected source of infection? No. Patient's initial sepsis screen is negative. Risk Assessment: Do you want to hurt yourself or someone else? Patient reports no desire to harm self or others. Onset of symptoms is unknown. 21:14 Method Of Arrival: Wheelchair lg3 21:14 Acuity: CORRINA 4 lg3 Triage Assessment: 21:15 General: Appears in no apparent distress. comfortable, Behavior is calm, cooperative. lg3 Pain: Complains of pain in chest Pain does not radiate. EENT: No deficits noted. No signs and/or symptoms were reported regarding the EENT system. Neuro: No deficits noted. Mullen Agitation-Sedation Scale (RASS): 0 - Alert and Calm Level of Consciousness is awake, alert, obeys commands, Oriented to person, place, time, situation. Cardiovascular: Reports chest pain, Capillary refill < 3 seconds Clubbing of nail beds is absent JVD is absent Patient's skin is warm and dry. Respiratory: No deficits noted. Airway is patent Respiratory effort is even, unlabored, Respiratory pattern is regular, symmetrical. GI: No deficits noted. No signs and/or symptoms were reported involving the gastrointestinal system. : No signs and/or symptoms were reported regarding the genitourinary system. Derm: No deficits noted. No signs and/or symptoms reported regarding the dermatologic system. Skin is intact, is healthy with good turgor, Skin is dry, Skin is normal, Skin temperature is warm. Musculoskeletal: Circulation, motion, and sensation intact. 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 - Infectious Disease History:: Denies. - Social history:: Smoking status: Patient denies any tobacco usage or history of. - Family history:: not pertinent. Screenin:17 [facility] ED Fall Risk Assessment (Adult) History of falling in the last 3 months, lg3 including since admission Yes- single mechanical fall (1 pt) Confusion or Disorientation No (0 pts) Intoxicated or Sedated No (0 pts) Impaired Gait Yes (1 pt) Mobility Assist Device Used Yes (1 pt) Altered Elimination No (0 pt) Score/Fall Risk Level 3 or more points = High Risk Oriented to surroundings, Maintained a safe environment, Educated pt \T\ family on fall prevention, incl call for assistance when getting out of bed, Assessed \T\ reinforced patient's understanding of fall precautions. Abuse screen: Denies threats or abuse. Denies injuries from another. Nutritional screening: No deficits noted. Tuberculosis screening: No symptoms or risk factors identified. Assessment: 21:17 General: see triage assessment. Pain: Complains of pain in chest Pain began 1 day ago. lg3 21:46 Reassessment: Patient appears in no apparent distress at this time. No changes from lg3 previously documented assessment. Patient and/or family updated on plan of care and expected duration. Pain level reassessed. Patient is alert, oriented x 3, equal unlabored respirations, skin warm/dry/pink. Vital Signs: 21:12 BP 142 / 100; Pulse 89; Resp 16; Temp 97; Pulse Ox 100% on R/A; Pain 10/10; kmf 21:46 BP 145 / 97; Pulse 81; Resp 17 S; Pulse Ox 100% on R/A; lg3 21:12 Pain Scale: Adult [facility] [place] Coma Score: 03/06 05:01 Eye Response: spontaneous(4). Motor Response: obeys commands(6). Verbal Response: sp4 oriented(5). Total: 15. ED Course: 03/05 20:47 Patient arrived in ED. mr 20:57 Uriel Cannon MD is Attending Physician. sp4 21:12 EKG done, by ED staff, reviewed by Uriel Cannon MD. kmf 21:14 Triage completed. lg3 21:15 Arm band placed on right wrist. lg3 21:17 Patient taken to lobby, via wheelchair. lg3 21:17 Patient maintains SpO2 saturation greater than 95% on room air. lg3 21:17 Patient has correct armband on for positive identification. lg3 21:47 No provider procedures requiring assistance completed. Patient did not have IV access lg3 during this emergency room visit. Administered Medications: 21:19 CANCELLED (Physician Discretion): diazepam5 mg PO once lg3 21:36 Drug: HYDROcodone-acetaminophen PO 5 mg-325 mg 1 tabs PO once Route: PO; lg3 21:44 Follow up: Response: No adverse reaction; Medication administered at discharge. lg3 21:36 Drug: Ketorolac PO 10 mg PO once Route: PO; lg3 21:44 Follow up: Response: No adverse reaction lg3 Medication: 21:47 VIS not applicable for this client. lg3 Outcome: 21:22 Discharge ordered by . sp4 21:47 Discharged to home via wheelchair, with significant other, lg3 21:47 Condition: stable 21:47 Discharge instructions given to patient, Instructed on discharge instructions, follow up and referral plans. Demonstrated understanding of instructions, follow-up care, 21:47 Patient left the ED. lg3 Signatures: Clair Marina, Reg Reg Lauren Benjamin, YANETH RN lg3 Uriel Cannon MD MD sp4 Phuong Day [facility]
--- NOTE | 2024-03-05 21:23 | EDPHYS ---
Physician Documentation [facility] Name: Geetha Khan Age: 48 yrs Sex: Female : 1975 Arrival Date: 03/05/2024 Time: 20:46 Bed IW1 Private MD: ED Physician Uriel Cannon HPI: 03/05 20:57 This 48 yrs old Female presents to ER via Unassigned with complaints of Chest sp4 Pain. 03/06 05:01 48-year-old female presents with acute onset chest pain, patient is well familiar to me sp4 from prior visits, has history of longstanding left-sided hemiparesis. [place] Patient was here earlier for shoulder pain and acute fall with left shoulder pain. 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 - Infectious Disease History:: Denies. - Social history:: Smoking status: Patient denies any tobacco usage or history of. - Family history:: not pertinent. ROS: 03/06 05:01 Constitutional: Negative for fever, chills, and weight loss, positive chest pain sp4 All other systems are negative, Exam: 05:01 Constitutional: This is a well developed, well nourished patient who is awake, alert, sp4 and in no acute distress. Patient has longstanding left-sided hemiparesis from prior CVA Head/Face: Normocephalic, atraumatic. Eyes: Pupils equal round and reactive to light, extra-ocular motions intact. Lids and lashes normal. Conjunctiva and sclera are not injected. Cornea within normal limits. Periorbital areas with no swelling, redness, or edema. ENT: Nares patent. No nasal discharge, no septal abnormalities noted. Tympanic membranes are normal and external auditory canals are clear. Oropharynx with no redness, swelling, or masses, exudates, or evidence of obstruction, uvula midline. Mucous membranes moist. Neck: Trachea midline, no thyromegaly or masses palpated, and no cervical lymphadenopathy. Supple, full range of motion without nuchal rigidity, or vertebral point tenderness. Chest/axilla: Normal chest wall appearance and motion. Nontender with no deformity. No lesions are appreciated. Cardiovascular: Regular rate and rhythm with a normal S1 and S2. No gallops, murmurs, or rubs. Normal PMI, no JVD. No pulse deficits. Respiratory: Lungs have equal breath sounds bilaterally, clear to auscultation and percussion. No rales, rhonchi or wheezes noted. No increased work of breathing, no retractions or nasal flaring. Abdomen/GI: Soft, with normal bowel sounds. No distension or tympany. No guarding or rebound. No evidence of tenderness throughout. Back: No spinal tenderness. No costovertebral tenderness. Skin: Warm, dry with normal turgor. Normal color with no rashes, no lesions, and no evidence of cellulitis. MS/ Extremity: Pulses equal, no cyanosis. Neurovascular intact. Full, normal range of motion. Neuro: Awake and alert, GCS 15, oriented to person, place, time, and situation. Cranial nerves II-XII grossly intact. Positive for chronic left-sided hemiparesis from prior CVA. Unchanged from prior exams Psych: Awake, alert, with orientation to person, place and time. Behavior, mood, and affect are within normal limits 05:01 ECG was reviewed by the Attending Physician. EKG at 2109 normal sinus rhythm, no ST elevation or depression. Vital Signs: 03/05 21:12 BP 142 / 100; Pulse 89; Resp 16; Temp 97; Pulse Ox 100% on R/A; Pain 10/10; kmf 21:46 BP 145 / 97; Pulse 81; Resp 17 S; Pulse Ox 100% on R/A; lg3 21:12 Pain Scale: Adult formerly [facility] [place] Coma Score: 03/06 05:01 Eye Response: spontaneous(4). Motor Response: obeys commands(6). Verbal Response: sp4 oriented(5). Total: 15. MDM: 03/05 21:22 Medical Screening Exam initiated sp4 03/06 05:04 Differential diagnosis: acute pericarditis, anxiety, chest wall pain, esophagitis, sp4 gastritis. Data reviewed: vital signs, nurses notes, old medical records, EKG. ED course: Patient was given ketorolac and [place] for pain. At this time concern for ACS is extremely low. Stable for discharge from the ER.. 03/05 20:57 Order name: EKG; Complete Time: 20:57 sp4 03/05 20:57 Order name: EKG - Nurse/Tech; Complete Time: 21:11 sp4 EC/19 21:09 Rate is 91 beats/min. Rhythm is regular, Normal Sinus Rhythm. QRS Bly is Normal. NM sp4 interval is normal. QRS interval is normal. QT interval is normal. No Q waves. T waves are Normal. No ST changes noted. Clinical impression: No evidence of ischemia. Reviewed by me. Administered Medications: 21: CANCELLED (Physician Discretion): diazepam5 mg PO once lg3 21:36 Drug: HYDROcodone-acetaminophen PO 5 mg-325 mg 1 tabs PO once Route: PO; lg3 21:44 Follow up: Response: No adverse reaction; Medication administered at discharge. lg3 21:36 Drug: Ketorolac PO 10 mg PO once Route: PO; lg3 21:44 Follow up: Response: No adverse reaction lg3 Disposition: 03/06 05:05 Chart complete. sp4 Disposition Summary: 03/05/24 21:22 Discharge Ordered Notes: Location: Home sp4 Problem: new sp4 Symptoms: have improved sp4 Condition: Stable sp4 Diagnosis - Chest pain, unspecified sp4 - Acute anxiety, noncardiac chest pain sp4 Followup: sp4 - With: Private Physician - When: 7 - 10 days - Reason: Recheck today's complaints Discharge Instructions: - Discharge Summary Sheet sp4 - Nonspecific Chest Pain, Adult, [id number] sp4 Forms: - Patient Portal Instructions sp4 Signatures: Lauren Heath RN RN lg3 Uriel Cannon MD MD sp4 Corrections: (The following items were deleted from the chart) 03/05 21: 20:57 Diazepam PO 5 mg PO once ordered. sp4 lg3
[2024-03-05] MEDS ORDERED: KETOROLAC 10 MG TAB ONE (21:32)
[2024-03-05] MEDS ORDERED: HYDROCODONE/APAP 5/325 MG TAB ONE (21:32)
[2024-03-05 22:10] VITALS: TEMP 97; O2SAT 100
[2024-03-05 22:11] VITALS: BP 145/97
--- NOTE | 2024-03-06 15:40 | EKG ---
Test Date: 2024-03-05 Test Time: 21:09:40 Centrifugal Machine Tender: JONAS MEASUREMENT RESULTS: Intervals: Rate: 91 OH: 174 QRSD: 86 QT: 370 QTc: 455 [place]: P: 47 OH: 174 QRS: -2 T: 140 INTERPRETIVE STATEMENTS: Normal sinus rhythm Left ventricular hypertrophy with repolarization abnormality Inferior infarct, age undetermined Anterior infarct, age undetermined Abnormal ECG Compared to ECG 03/03/2024 20:58:17 No significant changes Electronically Signed On 03-06-24 15:39:38 FACILITATOR by Alan Garay
== END 2024-03-05 21:47 | disposition home or self-care (01) ==
LOC: ER 20:46
DX: R07.89 Other chest pain (principal); G81.94 Hemiplegia, unspecified affecting left nondominant side; I10 Essential (primary) hypertension; J44.9 Chronic obstructive pulmonary disease, unspecified; I25.2 Old myocardial infarction; R56.9 Unspecified convulsions; F41.9 Anxiety disorder, unspecified; Z91.013 Allergy to seafood; Z91.018 Allergy to other foods
CPT/HCPCS: 93005; 99283

== ENCOUNTER 2024-03-06 21:53 | Emergency (ER) | payer OTHER ==
--- NOTE | 2024-03-06 22:47 | ER ---
Nurse's Notes [facility] Name: Geetha Khan Age: 48 yrs Sex: Female : 1975 Arrival Date: 03/06/2024 Time: 21:53 Bed 5 Private MD: Diagnosis: Chest pain, unspecified;Left shoulder musculoskeletal pain Presentation: 03/06 21:54 Chief complaint: Patient states: pt c/o chest pain and L shoulder pain. Coronavirus al5 screen: At this time, the client does not indicate any symptoms associated with coronavirus-19. Ebola Screen: No symptoms or risks identified at this time. Initial Sepsis Screen: Does the patient meet any 2 criteria? No. Patient's initial sepsis screen is negative. Does the patient have a suspected source of infection? No. Patient's initial sepsis screen is negative. Risk Assessment: Do you want to hurt yourself or someone else? Patient reports no desire to harm self or others. Onset of symptoms was March 06, 2024. 21:54 Method Of Arrival: EMS: [facility] al5 21:54 Acuity: CORRINA 2 al5 Triage Assessment: 21:58 General: Appears in no apparent distress. comfortable, Behavior is calm, cooperative. al5 Pain: Complains of pain in chest. Pain: Complains of pain in chest, anterior aspect of left shoulder and posterior aspect of left shoulder. EENT: No signs and/or symptoms were reported regarding the EENT system. Neuro: Level of Consciousness is awake, alert, obeys commands, Oriented to person, place, time, situation. Cardiovascular: Reports chest pain, Capillary refill < 3 seconds Patient's skin is warm and dry. Rhythm is sinus rhythm. Respiratory: Airway is patent Respiratory effort is even, unlabored, Respiratory pattern is regular, symmetrical. GI: No signs and/or symptoms were reported involving the gastrointestinal system. : No signs and/or symptoms were reported regarding the genitourinary system. Derm: Skin is intact, is healthy with good turgor, Skin is pink, warm \T\ dry. normal. Musculoskeletal: previous L sided stroke deficits. Historical: - Allergies: 21:56 Aspirin; al5 21:56 CRANBERRY; al5 21:56 FISH PRODUCT DERIVATIVES; al5 21:56 GRAPEFRUIT; al5 21:56 SHELLFISH; al5 - Home Meds: 21:56 Metoprolol Tartrate Oral [Active]; amlodipine oral [Active]; Zofran Oral [Active]; al5 Nitroglycerin SL [Active]; atorvastatin oral [Active]; Carbamazepine Oral [Active]; clopidogrel oral [Active]; lisinopril Oral [Active]; quetiapine oral [Active]; - PMHx: 21:56 Cerebrovascular accident; Chronic obstructive lung disease; Hypertensive disorder; al5 Myocardial infarction; Seizure; - Immunization history:: Adult Immunizations up to date. - Infectious Disease History:: Denies. - Social history:: Smoking status: Patient reports the use of cigarette tobacco products. - Family history:: not pertinent. Screenin:59 [facility] ED Fall Risk Assessment (Adult) History of falling in the last 3 months, al5 including since admission No falls in past 3 months (0 pts) Confusion or Disorientation No (0 pts) Intoxicated or Sedated No (0 pts) Impaired Gait Yes (1 pt) Mobility Assist Device Used Yes (1 pt) Altered Elimination Yes (1 pt) Score/Fall Risk Level 3 or more points = High Risk Oriented to surroundings, Maintained a safe environment, Provided non-skid footwear, Hourly rounding (assess needs \T\ fall precautionary measures) done, Used ambulatory aids as needed (educated on \T\ assisted with). Abuse screen: Denies threats or abuse. Denies injuries from another. Nutritional screening: No deficits noted. Tuberculosis screening: No symptoms or risk factors identified. Assessment: 21:59 Reassessment: see triage assessment. Pain: Pain does not radiate. Pain began 2 hours al5 ago. Vital Signs: 21:54 BP 131 / 85; Pulse 84; Resp 16; Temp 98.3; Pulse Ox 100% on R/A; Weight 56.7 kg; Height al5 5 ft. 2 in. ; Pain 10/10; 23:15 BP 136 / 97; Pulse 79; Resp 15; Pulse Ox 96% on R/A; dd2 21:54 Body Mass Index 22.86 (56.70 kg, 157.48 cm) al5 21:54 Pain Scale: Adult al5 Gardiner Coma Score: 03/07 19:54 Eye Response: spontaneous(4). Motor Response: obeys commands(6). Verbal Response: sp4 oriented(5). Total: 15. ED Course: 03/06 21:54 Patient arrived in ED. al5 21:54 Uriel Cannon MD is Attending Physician. al5 21:56 Triage completed. al5 21:59 Arm band placed on right wrist. Patient placed in the treatment room, on a stretcher, al5 on pulse oximetry. 22:00 Patient has correct armband on for positive identification. Bed in low position. Call al5 light in reach. Side rails up X2. Provided Education on: plan of care. Client placed on continuous cardiac and pulse oximetry monitoring. NIBP monitoring applied. pvc monitor on. 22:00 No provider procedures requiring assistance completed. Patient maintains SpO2 al5 saturation greater than 95% on room air. 22:27 EKG done, by ED staff. vk 22:45 Josse Olson MD is Referral Physician. sp4 03/07 00:06 Patient did not have IV access during this emergency room visit. dd2 Administered Medications: 00:06 Drug: Promethazine PO 25 mg PO once Route: PO; dd2 00:07 Follow up: Response: Medication administered at discharge. dd2 00:07 Drug: HYDROcodone-acetaminophen PO 5 mg-325 mg 1 tabs PO once Route: PO; dd2 00:07 Follow up: Response: Medication administered at discharge. dd2 00:07 Drug: Ketorolac PO 10 mg PO once Route: PO; dd2 00:07 Follow up: Response: Medication administered at discharge. dd2 Medication: 03/06 21:59 VIS not applicable for this client. al5 Outcome: 22:46 Discharge ordered by . sp4 03/07 00:06 Discharged to home via wheelchair, with family, dd2 Condition: stable Discharge instructions given to patient, Instructed on discharge instructions, follow up and referral plans. Demonstrated understanding of instructions, follow-up care, 00:08 Patient left the ED. dd2 Signatures: Uriel Cannon MD MD sp4 Chata Gibbons Amanda, RN RN al5 MAGGIE GIBSON RN RN dd2
--- NOTE | 2024-03-06 22:47 | EDPHYS ---
Physician Documentation [facility] Name: Geetha Khan Age: 48 yrs Sex: Female : 1975 Arrival Date: 03/06/2024 Time: 21:53 Bed 5 Private MD: ED Physician Uriel Cannon HPI: 03/06 22:24 This 48 yrs old Female presents to ER via EMS with complaints of Chest Pain. sp4 03/07 19:52 48-year-old female with history of hemorrhagic CVA and left-sided hemiparesis presents sp4 with complaint of new onset chest pain associated with left shoulder pain. Patient is well-known to me from multiple prior visits for the same. . 19:54 Patient states she has associated anxiety. . sp4 Historical: - Allergies: 03/06 21:56 Aspirin; al5 21:56 CRANBERRY; al5 21:56 FISH PRODUCT DERIVATIVES; al5 21:56 GRAPEFRUIT; al5 21:56 SHELLFISH; al5 - Home Meds: 21:56 Metoprolol Tartrate Oral [Active]; amlodipine oral [Active]; Zofran Oral [Active]; al5 Nitroglycerin SL [Active]; atorvastatin oral [Active]; Carbamazepine Oral [Active]; clopidogrel oral [Active]; lisinopril Oral [Active]; quetiapine oral [Active]; - PMHx: 21:56 Cerebrovascular accident; Chronic obstructive lung disease; Hypertensive disorder; al5 Myocardial infarction; Seizure; - Immunization history:: Adult Immunizations up to date. - Infectious Disease History:: Denies. - Social history:: Smoking status: Patient reports the use of cigarette tobacco products. - Family history:: not pertinent. ROS: 03/07 19:54 Constitutional: Negative for fever, chills, and weight loss, positive chest pain sp4 positive anxiety positive for left shoulder pain All other systems are negative, Exam: 19:54 Constitutional: This is a well developed, well nourished patient who is awake, alert, sp4 and in no acute distress, patient is thin female with longstanding left-sided hemiparesis,. Head/Face: Normocephalic, atraumatic. Eyes: Pupils equal round and reactive to light, extra-ocular motions intact. Lids and lashes normal. Conjunctiva and sclera are not injected. Cornea within normal limits. Periorbital areas with no swelling, redness, or edema. ENT: Nares patent. No nasal discharge, no septal abnormalities noted. Tympanic membranes are normal and external auditory canals are clear. Oropharynx with no redness, swelling, or masses, exudates, or evidence of obstruction, uvula midline. Mucous membranes moist. Neck: Trachea midline, no thyromegaly or masses palpated, and no cervical lymphadenopathy. Supple, full range of motion without nuchal rigidity, or vertebral point tenderness. Chest/axilla: Normal chest wall appearance and motion. Nontender with no deformity. No lesions are appreciated. Cardiovascular: Regular rate and rhythm with a normal S1 and S2. No gallops, murmurs, or rubs. Normal PMI, no JVD. No pulse deficits. Respiratory: Lungs have equal breath sounds bilaterally, clear to auscultation and percussion. No rales, rhonchi or wheezes noted. No increased work of breathing, no retractions or nasal flaring. Abdomen/GI: Soft, with normal bowel sounds. No distension or tympany. No guarding or rebound. No evidence of tenderness throughout. Back: No spinal tenderness. No costovertebral tenderness. Skin: Warm, dry with normal turgor. Normal color with no rashes, no lesions, and no evidence of cellulitis. MS/ Extremity: Pulses equal, no cyanosis. Neurovascular intact. Full, normal range of motion. No deformities, left shoulder exam positive for left arm longstanding muscular atrophy secondary to left-sided hemiparesis. Neuro: Awake and alert, GCS 15, oriented to person, place, time, and situation. Cranial nerves II-XII grossly intact. Motor strength 5/5 in all extremities. Sensory grossly intact. Psych: Awake, alert, with orientation to person, place and time. Behavior, mood, and affect are within normal limits 19:54 ECG was reviewed by the Attending Physician. EG at 2224. Normal sinus rhythm rate 80, sp4 no changes from prior EKG. Left ventricular hypertrophy. Vital Signs: 03/06 21:54 BP 131 / 85; Pulse 84; Resp 16; Temp 98.3; Pulse Ox 100% on R/A; Weight 56.7 kg; Height al5 5 ft. 2 in. ; Pain 10/10; 23:15 BP 136 / 97; Pulse 79; Resp 15; Pulse Ox 96% on R/A; dd2 21:54 Body Mass Index 22.86 (56.70 kg, 157.48 cm) al5 21:54 Pain Scale: Adult al5 Mariluz Coma Score: 03/07 19:54 Eye Response: spontaneous(4). Motor Response: obeys commands(6). Verbal Response: sp4 oriented(5). Total: 15. MDM: 03/06 22:24 Medical Screening Exam initiated sp4 22:24 Differential diagnosis: acute pericarditis, anxiety, chest wall pain, costochondritis, sp4 gastritis. Data reviewed: vital signs, nurses notes, EMS record, old medical records, EKG. ED course: Patient was given pain medications in ER. Patient is stable for discharge from the emergency department. Based on review of prior medical records and patient presentation no further workup is indicated.. 03/06 22:14 Order name: EKG; Complete Time: 22:14 lg3 03/06 22:14 Order name: EKG - Nurse/Tech; Complete Time: 22:27 lg3 EC:24 Rate is 80 beats/min. Rhythm is regular, Normal Sinus Rhythm. QRS [place] is Normal. [place] sp4 interval is normal. QRS interval is normal. QT interval is normal. No Q waves. T waves are Normal. No ST changes noted. Clinical impression: No evidence of ischemia. Interpreted by me. Reviewed by me. Administered Medications: 03/07 00:06 Drug: Promethazine PO 25 mg PO once Route: PO; dd2 00:07 Follow up: Response: Medication administered at discharge. dd2 00:07 Drug: HYDROcodone-acetaminophen PO 5 mg-325 mg 1 tabs PO once Route: PO; dd2 00:07 Follow up: Response: Medication administered at discharge. dd2 00:07 Drug: Ketorolac PO 10 mg PO once Route: PO; dd2 00:07 Follow up: Response: Medication administered at discharge. dd2 Disposition: 20:03 Chart complete. sp4 Disposition Summary: 03/06/24 22:46 Discharge Ordered Notes: Location: Home sp4 Problem: new sp4 Symptoms: have improved sp4 Condition: Stable sp4 Diagnosis - Chest pain, unspecified sp4 - Left shoulder musculoskeletal pain sp4 Followup: sp4 - With: Josse Olson MD - When: 7 - 10 days - Reason: Recheck today's complaints Discharge Instructions: - Discharge Summary Sheet sp4 - Shoulder Pain, [id number] sp4 Forms: - Patient Portal Instructions sp4 Signatures: Lauren Heath RN RN lg3 Uriel Cannon MD MD sp4 Anayeli Otero RN RN al5 MAGGIE GIBSON RN RN dd2
[2024-03-06] MEDS ORDERED: KETOROLAC 10 MG TAB ONE (23:57)
[2024-03-06] MEDS ORDERED: PROMETHAZINE 25 MG TABLET ONE (23:57)
[2024-03-06] MEDS ORDERED: HYDROCODONE/APAP 5/325 MG TAB ONE (23:58)
[2024-03-07 00:14] VITALS: BP 136/97; TEMP 98.3; O2SAT 96
--- NOTE | 2024-03-13 13:49 | EKG ---
Test Date: 2024-03-08 Test Time: 20:41:09 Director Cardiovascular: JONAS MEASUREMENT RESULTS: Intervals: Rate: 93 NV: 172 QRSD: 80 QT: 374 QTc: 465 [place]: P: 54 NV: 172 QRS: -10 T: 147 INTERPRETIVE STATEMENTS: Normal sinus rhythm Possible Left atrial enlargement Left ventricular hypertrophy with repolarization abnormality Inferior infarct, age undetermined Abnormal ECG Compared to ECG 03/06/2024 22:24:39 Myocardial infarct finding now present Electronically Signed On 03-13-24 13:39:12 STEELWORKER by Josse Olson
== END 2024-03-07 00:08 | disposition home or self-care (01) ==
LOC: ER 21:53
DX: R07.9 Chest pain, unspecified (principal); M25.512 Pain in left shoulder; Z86.73 Personal history of transient ischemic attack (TIA), and cerebral infarction without residual deficits; I10 Essential (primary) hypertension; J44.9 Chronic obstructive pulmonary disease, unspecified; Z72.0 Tobacco use
CPT/HCPCS: 93005; 99284; Q0169

== ENCOUNTER 2024-03-08 20:12 | Emergency (ER) | payer OTHER ==
[2024-03-08] MEDS ORDERED: DIAZEPAM 2 MG TABLET ONE (20:40)
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
--- NOTE | 2024-03-08 20:48 | EDPHYS ---
Physician Documentation [facility] Name: Geetha Khan Age: 48 yrs Sex: Female : 1975 Arrival Date: 03/08/2024 Time: 20:12 Bed 20 Private MD: ED Physician Gene Medrano HPI: 03/08 20:19 This 48 yrs old Female presents to ER via Unassigned with complaints of anxiety. rn 20:19 Patient reports went to bed feeling fine, woke up and her was not home, she did rn not know where he was started having a panic attack. [place] anxiousness with slight chest pain and palpitations. When EMS arrived they were able to contact her who is well and she calmed down, feels much better, reports feels identical to previous panic attacks and anxiety episodes. Denies shortness of breath or abdominal pain. No leg swelling or unilateral pain.. Onset: The symptoms/episode began/occurred just prior to arrival. Severity of symptoms: At their worst the symptoms were moderate in the emergency department the symptoms have improved. The patient has not experienced similar symptoms in the past. The patient has been recently seen at the [facility] Emergency Department. Patient seen here yesterday for chest pain, workup negative. 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 - Infectious Disease History:: Denies. - Family history:: not pertinent. - Social history:: Smoking status: Patient reports the use of cigarette tobacco products, smokes one pack cigarettes per day. - Hospitalizations: : No recent hospitalization is reported. ROS: 20:19 Constitutional: Negative for fever, chills, and weight loss, Cardiovascular: Positive rn for mild chest pain that is improving now that she knows her is fine Respiratory: Negative for shortness of breath, cough, wheezing, and pleuritic chest pain, Abdomen/GI: Negative for abdominal pain, nausea, vomiting, diarrhea, and constipation, MS/Extremity: Negative for injury and deformity, Neuro: Negative for headache, weakness, numbness, tingling, and seizure, Exam: 20:19 Constitutional: This is a well developed, well nourished patient who is awake, alert, rn and in no acute distress. Head/Face: Normocephalic, atraumatic. Cardiovascular: Regular rate and rhythm. No pulse deficits. Respiratory: Speaking full sentences, unlabored. Abdomen/GI: Soft, non-tender Neuro: Awake and alert, GCS 15 20:46 ECG was reviewed by the Attending Physician. rn Vital Signs: 20:27 BP 131 / 90; Pulse 92; Resp 16; Temp 97.4; Pulse Ox 100% ; vc1 MDM: 20:14 Medical Screening Exam initiated rn 20:46 Differential Diagnosis Anxiety, palpitations, arrhythmia. Data reviewed: vital signs, rn nurses notes, old medical records, EKG, and as a result, I will discharge patient. Counseling: I had a detailed discussion with the patient and/or guardian regarding the historical points, exam findings, and any diagnostic results supporting the discharge/admit diagnosis, the need for outpatient follow up, to return to the emergency department if symptoms worsen or persist or if there are any questions or concerns that arise at home. Special discussion: I discussed with the patient/guardian in detail that at this point there is no indication for admission to the hospital. It is understood, however, that if the symptoms persist or worsen the patient needs to return immediately for re-evaluation. ED course: No changes in ECG compared to previous. Will discharge home with return precautions. Most likely panic attack/anxiety given patient states identical and began after patient was anxious that her was not around.. 03/08 20: Order name: EKG; Complete Time: : rn 03/08 20: Order name: EKG - Nurse/Tech; Complete Time: : rn EC:46 Rate is 93 beats/min. Rhythm is regular. QRS [place] is Normal. OR interval is normal. QRS rn interval is normal. QT interval is normal. No Q waves. T waves are Inverted in leads I, aVL. No ST changes noted. Clinical impression: NSR w/ Non-specific ST/T Changes and Abnormal EKG without significant change. Interpreted by me. Reviewed by me. Administered Medications: 20:42 Drug: Diazepam PO 2 mg PO once Route: PO; vc1 20:55 Follow up: Response: Medication administered at discharge. vc1 Disposition Summary: 03/08/24 20:47 Discharge Ordered Notes: Location: Home rn Problem: new rn Symptoms: have improved rn Condition: Stable rn Diagnosis - Anxiety disorder, unspecified rn Followup: rn - With: Private Physician - When: As needed - Reason: Recheck today's complaints, Re-evaluation by your physician Discharge Instructions: - Discharge Summary Sheet rn - Panic Attack rn - Generalized Anxiety Disorder, Adult rn - Managing Anxiety, Adult rn Forms: - Medication Reconciliation Form rn - Antibiotic rn disease management - Prescription Opioid Use rn - Patient Portal Instructions rn - Leadership Thank You Letter rn Signatures: Gene Medrano MD MD rn Calcote, Vanessa, RN RN vc1
[2024-03-08 21:00] VITALS: BP 131/90; TEMP 97.4; O2SAT 100
--- NOTE | 2024-03-09 11:10 | EKG ---
Test Date: 2024-03-06 Test Time: 22:24:39 Forensic Anthropologist: ALEIDA MEASUREMENT RESULTS: Intervals: Rate: 80 RI: 172 QRSD: 78 QT: 384 QTc: 442 [place]: P: 31 RI: 172 QRS: -2 T: 141 INTERPRETIVE STATEMENTS: Normal sinus rhythm Left ventricular hypertrophy with repolarization abnormality Abnormal ECG Compared to ECG 03/05/2024 21:09:40 Myocardial infarct finding no longer present Electronically Signed On 03-09-24 11:07:34 BEER MAKER by Alan Garay
== END 2024-03-08 20:55 | disposition home or self-care (01) ==
LOC: ER 20:12
DX: F41.9 Anxiety disorder, unspecified (principal); I10 Essential (primary) hypertension; Z86.73 Personal history of transient ischemic attack (TIA), and cerebral infarction without residual deficits; F17.210 Nicotine dependence, cigarettes, uncomplicated
CPT/HCPCS: 93005; 99284

== ENCOUNTER 2024-03-10 19:09 | Inpatient (IN) | payer OTHER ==
[2024-03-10] MEDS ORDERED: IPRATROPIUM BROM 0.5MG/2.5ML ONE (19:29)
[2024-03-10] MEDS ORDERED: ASPIRIN 81 MG CHEWABLE TABLET ONE (19:29)
[2024-03-10] MEDS ORDERED: METHYLPREDNISOLONE 125 MG INJ ONE (19:29)
[2024-03-10] MEDS ORDERED: LEVALBUTEROL 1.25 MG/3 ML NEB ONE (19:29)
[2024-03-10] MEDS ORDERED: FAMOTIDINE 20 MG/2 ML VIAL IV ONE (19:30)
[2024-03-10] MEDS ORDERED: Meropenem 1000 MG/VIAL IV ONE (19:30)
[2024-03-10] MEDS ORDERED: NA CHLORIDE 0.9% 500 ML ONE (19:30)
[2024-03-10] MEDS ORDERED: NA CHLORIDE 0.9% 100 ML ONE (19:30)
[2024-03-10 20:02] LABS: Absolute Lymphocytes (CBC) 1.9 K/uL (0.7-4.9); Absolute Monocytes 0.6 K/uL (0.1-1.3); Absolute Neutrophil 5.1 K/uL (1.8-8.0); Basophils % 0.6 % (0-1.3); Eosinophils % 0.2 % (0-4.4); Hematocrit 33.9 % (36.0-45.0); Hemoglobin 11.3 g/dL (12.0-15.0); Lymphocytes % 24.4 % (15.3-44.8); MCH 34.8 pg (27.0-35.0); MCHC 33.4 g/dL (32.0-36.0); MCV 104.2 fL (80-100); MPV 6.9 fL (7.6-11.3); Monocytes % 8.2 % (3.3-12.3); Neutrophils % 66.6 % (41.7-73.7); Platelets 235 thou/uL (152-406); RBC Red Blood Cell Count 3.26 M/uL (3.86-4.86); Red Cell Distribution Width 13.6 % (12.1-15.2)
[2024-03-10 20:06] LABS: PT Prothrombin Time 9.7 SECONDS (9.4-12.5); Protime INR 0.86
[2024-03-10] MEDS ORDERED: LORazepam 2 MG/ML VIAL ONE (20:12)
[2024-03-10] MEDS ORDERED: AMLODIPINE 5 MG TAB ONE (20:13)
[2024-03-10 20:19] LABS: ALT/SGPT 24 U/L (13-56); AST/SGOT 20 U/L (15-37); Albumin 3.4 g/dL (3.4-5.0); Albumin/Globulin Ratio 1.1 (1.1-1.8); Alkaline Phosphatase 155 U/L (45-117); Anion Gap 9.3 mEq/L (5.0-15.0); BUN Blood Urea Nitrogen 19 mg/dL (7-18); Bicarbonate 27 mEq/L (21-32); Bilirubin Direct < 0.2 mg/dL (0-0.2); Bilirubin Total 0.2 mg/dL (0.2-1.0); Globulin 3.1 g/dL (2.3-3.5); Glomerular Filtration Rate 52 ml/min (=/>90); Glucose Level 69 mg/dL (74-106); Magnesium 1.6 mg/dL (1.6-2.4); NT PRO-BNP 2276 pg/mL (<125); Potassium 4.3 mEq/L (3.5-5.1); Protein, Total 6.5 g/dL (6.4-8.2); Sodium Level 140 mEq/L (136-145); Troponin High Sensitivity 37.6 pg/mL (<58.9)
--- NOTE | 2024-03-10 20:35 | ER ---
Nurse's Notes [facility] Name: Geetha Khan Age: 48 yrs Sex: Female : 1975 Arrival Date: 03/10/2024 Time: 19:09 Bed 24 Private MD: Diagnosis: UTI/ Urinary tract infection, site not specified-esbl/ klebsiella;Chest pain, unspecified;COPD/ Chronic obstructive pulmonary disease with (acute) exacerbation;Essential (primary) hypertension Presentation: 03/10 19:33 Chief complaint: EMS states: toned out for chest pain, left sided, heavy, 12/25. c/o me1 anxiety. bp 172/118, hr 80. Coronavirus screen: Vaccine status: Patient reports being unvaccinated. Ebola Screen: No symptoms or risks identified at this time. Initial Sepsis Screen: Does the patient meet any 2 criteria? No. Patient's initial sepsis screen is negative. Does the patient have a suspected source of infection?. Risk Assessment: Do you want to hurt yourself or someone else? Patient reports no desire to harm self or others. Onset of symptoms was March 10, 2024. 19:33 Method Of Arrival: EMS: [facility] wi1 19:33 Acuity: CORRINA 3 me1 Triage Assessment: 19:34 General: Appears uncomfortable, unkempt, well developed, Behavior is cooperative, me1 appropriate for age, anxious. Pain: Complains of pain in anterior aspect of left upper chest Pain does not radiate. Pain currently is 10 out of 10 on a pain scale. Quality of pain is described as heavy, Pain began 1 hour ago. Is continuous. EENT: No signs and/or symptoms were reported regarding the EENT system. Neuro: Level of Consciousness is awake, alert, obeys commands, Oriented to person, place, time, situation, Appropriate for age. Cardiovascular: Patient's skin is warm and dry. Respiratory: Airway is patent Trachea midline Respiratory effort is even, unlabored, Respiratory pattern is regular, symmetrical. GI: No signs and/or symptoms were reported involving the gastrointestinal system. : Reports incontinence, at baseline. Derm: Skin is intact, is healthy with good turgor, Skin is pink, warm \T\ dry. Musculoskeletal: Range of motion: limited in left shoulder, left elbow, left wrist, left hip, left knee and left ankle. 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 - Infectious Disease History:: Denies. - Social history:: Smoking status: Patient reports the use of cigarette tobacco products, smokes one-half pack cigarettes per day. Screenin:38 [facility] ED Fall Risk Assessment (Adult) History of falling in the last 3 months, me1 including since admission No falls in past 3 months (0 pts) Confusion or Disorientation No (0 pts) Intoxicated or Sedated No (0 pts) Impaired Gait Yes (1 pt) Mobility Assist Device Used Yes (1 pt) Altered Elimination No (0 pt) Score/Fall Risk Level 0 - 2 = Low Risk Maintained a safe environment, Provided non-skid footwear, Hourly rounding (assess needs \T\ fall precautionary measures) done. Abuse screen: Denies threats or abuse. Nutritional screening: No deficits noted. Tuberculosis screening: No symptoms or risk factors identified. Assessment: 19:38 General: See triage assessment.. me1 Vital Signs: 19:30 BP 158 / 112; Pulse 82; Resp 16; Pulse Ox 100% on R/A; me1 19:33 Weight 56.7 kg; Height 5 ft. 2 in. ; Pain 10/10; me1 20:00 BP 156 / 112; Pulse 84; Resp 16; Pulse Ox 99% ; me1 21:34 BP 176 / 114; Pulse 85; Resp 16; Pulse Ox 100% ; me1 22:00 BP 161 / 103; Pulse 96; Resp 16; Pulse Ox 97% ; me1 22:30 BP 148 / 105; Pulse 93; Resp 14; Pulse Ox 97% ; me1 23:00 BP 151 / 99; Pulse 90; Resp 15; Temp 98.2; Pulse Ox 97% on R/A; me1 23:30 BP 154 / 88; Pulse 94; Resp 16; Pulse Ox 97% ; me1 19:33 Body Mass Index 22.86 (56.70 kg, 157.48 cm) me1 19:33 Pain Scale: [place] [facility] [place] Course: 19:19 Patient arrived in ED. rv1 19:20 Michael Grimm MD is Attending Physician. [facility] 19:32 Nohemy Clark, YANETH is Primary Nurse. me1 19:34 Triage completed. me1 19:34 Arm band placed on Patient placed in an exam room. me1 19:38 Patient has correct armband on for positive identification. Bed in low position. Call [facility] [place] in reach. Side rails up X2. Provided Education on: POC. Verbalized understanding.. Client placed on continuous cardiac and pulse oximetry monitoring. NIBP monitoring applied. quality assurance auditor on. Pulse ox on. NIBP on. 19:38 No provider procedures requiring assistance completed. Patient maintains SpO2 wi1 saturation greater than 95% on room air. 19:52 Basic Metabolic Panel Sent. me1 19:52 CBC with Diff Sent. me1 19:52 LFT's Sent. me1 19:52 Magnesium Sent. me1 19:52 NT PRO-BNP Sent. me1 19:52 PT-INR Sent. me1 19:52 Troponin HS Sent. me1 19:52 Initial lab(s) drawn, by wi, sent to lab. Inserted saline lock: 24 gauge in right wi1 wrist, using aseptic technique. 20:27 XRAY Chest (1 view) In Process Unspecified. EDMT 20:32 Nahum Tejada MD is Hospitalizing Provider. [facility] 23:09 Patient admitted, IV remains in place. me1 Administered Medications: 20:03 Drug: NS 0.9% IV 500 ml 500 ml IV at 100 ml/hr once Volume: 500 ml; Route: IV; Rate: me1 100 ml/hr; Site: right wrist; 22:24 Follow up: Response: No adverse reaction; IV Status: Completed infusion; IV Intake: me1 500ml 20:03 Drug: MethylPrednisoLONE IVP 125 mg IVP once Route: IVP; Site: right wrist; me1 20:44 Follow up: Response: No adverse reaction me1 20:03 Drug: Levalbuterol Inhalation 2.5 mg Inhalation once Route: Inhalation; me1 20:44 Follow up: Response: No adverse reaction; Wheezing diminished me1 20:03 Drug: Ipratropium Inhalation Aerosol 0.5 mg Inhalation once Route: Inhalation; me1 20:44 Follow up: Response: No adverse reaction; Wheezing diminished me1 20:04 Drug: Meropenem IV 1 grams IV at per protocol once; (mix in NS 100 mL) Route: IV; Rate: me1 per protocol; Site: right wrist; 20:44 Follow up: Response: No adverse reaction; IV Status: Completed infusion; IV Intake: me1 100ml 20:04 Not Given (Patient Refused; allergy to aspirinn): aspirinchewable tablet 81 mg PO once me1 20:04 Drug: Famotidine IVP 20 mg IVP once; dilute with 10 mL 0.9% NaCl; give over 2 minutes me1 Route: IVP; Site: right wrist; 20:43 Follow up: Response: No adverse reaction me1 20:16 Drug: Ativan IVP 0.5 mg IVP once Route: IVP; Site: right wrist; me1 20:44 Follow up: Response: No adverse reaction; Anxiety decreased me1 20:16 Drug: Norvasc PO 5 mg PO once Route: PO; me1 21:04 Follow up: Response: No adverse reaction me1 22:09 Drug: Diazepam PO 5 mg PO once Route: PO; me1 22:24 Follow up: Response: No adverse reaction; Anxiety decreased me1 Medication: 19:38 VIS not applicable for this client. me1 Intake: 20:44 IV: 100ml; Total: 100ml. me1 22:24 IV: 500ml; Total: 600ml. me1 Outcome: 20:35 Decision to Hospitalize by Provider. [place] 23:05 Admitted to Med/surg accompanied by vishal, via stretcher, room 225, with chart, Report me1 called to faxed, receipt confirmed with Sylvia 23:05 Condition: stable 23:05 Instructed on the need for admit, 23:49 Patient left the ED. me1 Signatures: Dispatcher [employer] Michael Meyer MD MD cha Villegas, Rebecca rv1 Nohemy Clark, YANETH RN me1
--- NOTE | 2024-03-10 20:35 | EDPHYS ---
Physician Documentation [facility] Name: Geetha Khan Age: 48 yrs Sex: Female : 1975 Arrival Date: 03/10/2024 Time: 19:09 Bed 24 Private MD: ED Physician Michael Grimm HPI: 03/10 19:38 This 48 yrs old Female presents to ER via EMS with complaints of Chest Pain, juan [place]go Anxiety. 19:38 The patient or guardian reports chest pain that is located primarily in the substernal juan [place]go area. Onset: 2 day(s) ago. The pain does not radiate. Associated signs and symptoms: Pertinent positives: cough, lightheadedness, shortness of breath. The chest pain is described as a heaviness. Modifying factors: The symptoms are alleviated by nothing. the symptoms are aggravated by nothing. Severity of pain: At its worst the pain was moderate in the emergency department the pain is unchanged. The patient has experienced similar episodes in the past, multiple times. 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 - Infectious Disease History:: Denies. - Social history:: Smoking status: Patient reports the use of cigarette tobacco products, smokes one-half pack cigarettes per day. ROS: 19:39 Constitutional: Negative for fever, chills, and weight loss, Eyes: Negative for injury, [place] pain, redness, and discharge, ENT: Negative for injury, pain, and discharge, Neck: Negative for injury, pain, and swelling, Cardiovascular: Negative for chest pain, palpitations, and edema, Abdomen/GI: Negative for abdominal pain, nausea, vomiting, diarrhea, and constipation, Back: Negative for injury and pain, : Negative for injury, bleeding, discharge, and swelling, MS/Extremity: Negative for injury and deformity, Skin: Negative for injury, rash, and discoloration, Neuro: Negative for headache, weakness, numbness, tingling, and seizure, Psych: Negative for depression, anxiety, suicide ideation, homicidal ideation, and hallucinations, Allergy/Immunology: Negative for hives, rash, and allergies, Endocrine: Negative for neck swelling, polydipsia, polyuria, polyphagia, and marked weight changes, Hematologic/Lymphatic: Negative for swollen nodes, abnormal bleeding, and unusual bruising, 19:39 Respiratory: Positive for cough, shortness of breath, wheezing, expiratory, Exam: 19:39 Constitutional: This is a well developed, well nourished patient who is awake, alert, [place] and in no acute distress. Head/Face: Normocephalic, atraumatic. Eyes: Pupils equal round and reactive to light, extra-ocular motions intact. Lids and lashes normal. Conjunctiva and sclera are non-icteric and not injected. Cornea within normal limits. Periorbital areas with no swelling, redness, or edema. ENT: Nares patent. No nasal discharge, no septal abnormalities noted. Tympanic membranes are normal and external auditory canals are clear. Oropharynx with no redness, swelling, or masses, exudates, or evidence of obstruction, uvula midline. Mucous membranes moist. Neck: Trachea midline, no thyromegaly or masses palpated, and no cervical lymphadenopathy. Supple, full range of motion without nuchal rigidity, or vertebral point tenderness. No Meningismus. Chest/axilla: Normal chest wall appearance and motion. Nontender with no deformity. No lesions are appreciated. Cardiovascular: Regular rate and rhythm with a normal S1 and S2. No gallops, murmurs, or rubs. Normal PMI, no JVD. No pulse deficits. Abdomen/GI: Soft, non-tender, with normal bowel sounds. No distension or tympany. No guarding or rebound. No evidence of tenderness throughout. Back: No spinal tenderness. No costovertebral tenderness. Full range of motion. Skin: Warm, dry with normal turgor. Normal color with no rashes, no lesions, and no evidence of cellulitis. MS/ Extremity: Pulses equal, no cyanosis. Neurovascular intact. Full, normal range of motion., bilateral aka Neuro: Awake and alert, GCS 15, oriented to person, place, time, and situation. Cranial nerves II-XII grossly intact. Motor strength 5/5 in all extremities. Sensory grossly intact. Cerebellar exam normal. Normal gait. Psych: Awake, alert, with orientation to person, place and time. Behavior, mood, and affect are within normal limits. 19:39 Respiratory: mild respiratory distress is noted, Respirations: labored breathing, that is mild, Breath sounds: bronchial sounds, that are mild, rhonchi, that are mild, stridor, is not appreciated, + upper airway congestion. wheezing: inspiratory expiratory is heard diffusely, 20:40 ECG was reviewed by the Attending Physician. [facility] Vital Signs: 19:30 BP 158 / 112; Pulse 82; Resp 16; Pulse Ox 100% on R/A; me1 19:33 Weight 56.7 kg; Height 5 ft. 2 in. ; Pain 10/10; me1 20:00 BP 156 / 112; Pulse 84; Resp 16; Pulse Ox 99% ; me1 21:34 BP 176 / 114; Pulse 85; Resp 16; Pulse Ox 100% ; me1 22:00 BP 161 / 103; Pulse 96; Resp 16; Pulse Ox 97% ; me1 22:30 BP 148 / 105; Pulse 93; Resp 14; Pulse Ox 97% ; me1 23:00 BP 151 / 99; Pulse 90; Resp 15; Temp 98.2; Pulse Ox 97% on R/A; me1 23:30 BP 154 / 88; Pulse 94; Resp 16; Pulse Ox 97% ; me1 19:33 Body Mass Index 22.86 (56.70 kg, 157.48 cm) ms1 19:33 Pain Scale: Adult ms1 MDM: 19:21 Medical Screening Exam initiated [facility] 19:41 Differential diagnosis: abnormal EKG, acute myocardial infarction, acute pericarditis, [place] anxiety, coronary artery disease chest wall pain, cholecystitis, Cholelithiasis esophagitis, gastritis, pancreatitis, peptic ulcer disease, pericarditis, pneumonia, stable angina, thoracic aortic disection, unstable angina. HEART Score: History: Moderately Suspicious (1), ECG: Non specific repolarization disturbance / LBTB / PM (1), Age: > 45 and < 65 years (1), Risk Factors: > or = 3 Risk factors for atherosclerotic disease (2), [Hypercholesterolemia] [Hypertension] [Active Smoker] [+ Family HX]. The patient was not given aspirin in the Emergency Department. Not indicated due to patient's past medical history. YEVGENIY Risk Score: 1 - Three or more CAD risk factors, 1- Known CAD, 1 - Recent [<24hrs] Severe Angina, TOTAL SCORE = 3. Data reviewed: vital signs, nurses notes, EMS record, lab test result(s), EKG, radiologic studies, plain films. Consideration of Admission/Observation Patient was admitted/placed on observation. Escalation of care including admission/observation considered. I considered the following discharge prescriptions or medication management in the emergency department Medications were administered in the Emergency Department. See MAR. Independent interpretation of the following test(s) in the Emergency Department EKG: See my EKG interpretation above. Test considered but Not performed: CT: CT CHEST RO PE. Care significantly affected by the following chronic conditions: Hypertension, Chronic Obstructive Pulmonary Disease, CVS, NH. Counseling: I had a detailed discussion with the patient and/or guardian regarding the historical points, exam findings, and any diagnostic results supporting the discharge/admit diagnosis, lab results, radiology results, the need for further work-up and treatment in the hospital. 03/10 19:20 Order name: [facility] sb4 03/10 19:21 Order name: Basic Metabolic Panel; Complete Time: 20:47 [place]go 03/10 19:21 Order name: CBC with Diff; Complete Time: 20:47 [place] 03/10 19:21 Order name: LFT's; Complete Time: 20:47 [place] 03/10 19:21 Order name: Magnesium; Complete Time: 20:47 [place] 03/10 19:21 Order name: NT PRO-BNP; Complete Time: 20:47 [place]go 03/10 19:21 Order name: PT-INR; Complete Time: 20:47 [place] 03/10 19:21 Order name: Troponin HS; Complete Time: 20:47 [place] 03/10 21:41 Order name: Urinalysis w/ reflexes [facility] 03/10 21:41 Order name: CBC with Automated Diff [facility] 03/10 21:41 Order name: CBC with Automated Diff [facility] 03/10 21:41 Order name: Comprehensive Metabolic Panel [facility] 03/10 21:41 Order name: Comprehensive Metabolic Panel [facility] 03/10 21:41 Order name: Troponin High Sensitivity [facility] 03/10 21:41 Order name: Troponin High Sensitivity [facility] 03/10 21:41 Order name: Troponin High Sensitivity [facility] 03/10 21:41 Order name: Troponin High Sensitivity [facility] 03/10 19:21 Order name: XRAY Chest (1 view) [facility] 03/10 19:21 Order name: Cardiac monitoring; Complete Time: 20:45 [facility] 03/10 19:21 Order name: EKG - Nurse/Tech; Complete Time: 20:45 [facility] 03/10 19:21 Order name: IV Saline Lock; Complete Time: 19:52 [facility] 03/10 19:21 Order name: Labs collected and sent; Complete Time: 19:52 [facility] 03/10 19:21 Order name: O2 Per Protocol; Complete Time: 19:40 [facility] 03/10 19:21 Order name: O2 Sat Monitoring; Complete Time: 19:40 [facility] 03/10 20:48 Order name: PO challenge: juice; Complete Time: 21:04 [facility] EC:40 Rate is 80 beats/min. Rhythm is regular. QRS [place] is Normal. [place] interval is normal. QRS [place] interval is normal. QT interval is normal. No Q waves. T waves are Normal. No ST changes noted. Clinical impression: Abnormal EKG without significant change and No evidence of ischemia. Interpreted by me. Reviewed by me. Administered Medications: 20:03 Drug: NS 0.9% IV 500 ml 500 ml IV at 100 ml/hr once Volume: 500 ml; Route: IV; Rate: me1 100 ml/hr; Site: right wrist; 22:24 Follow up: Response: No adverse reaction; IV Status: Completed infusion; IV Intake: me1 500ml 20:03 Drug: MethylPrednisoLONE IVP 125 mg IVP once Route: IVP; Site: right wrist; me1 20:44 Follow up: Response: No adverse reaction me1 20:03 Drug: Levalbuterol Inhalation 2.5 mg Inhalation once Route: Inhalation; me1 20:44 Follow up: Response: No adverse reaction; Wheezing diminished me1 20:03 Drug: Ipratropium Inhalation Aerosol 0.5 mg Inhalation once Route: Inhalation; me1 20:44 Follow up: Response: No adverse reaction; Wheezing diminished me1 20:04 Drug: Meropenem IV 1 grams IV at per protocol once; (mix in NS 100 mL) Route: IV; Rate: me1 per protocol; Site: right wrist; 20:44 Follow up: Response: No adverse reaction; IV Status: Completed infusion; IV Intake: me1 100ml 20:04 Not Given (Patient Refused; allergy to aspirinn): aspirinchewable tablet 81 mg PO once me1 20:04 Drug: Famotidine IVP 20 mg IVP once; dilute with 10 mL 0.9% NaCl; give over 2 minutes me1 Route: IVP; Site: right wrist; 20:43 Follow up: Response: No adverse reaction me1 20:16 Drug: Ativan IVP 0.5 mg IVP once Route: IVP; Site: right wrist; me1 20:44 Follow up: Response: No adverse reaction; Anxiety decreased me1 20:16 Drug: Norvasc PO 5 mg PO once Route: PO; me1 21:04 Follow up: Response: No adverse reaction me1 22:09 Drug: Diazepam PO 5 mg PO once Route: PO; me1 22:24 Follow up: Response: No adverse reaction; Anxiety decreased me1 Disposition Summary: 03/10/24 20:35 Hospitalization Ordered Notes: Hospitalization Status: Observation [place] Provider: Nahum Tejada cha Location: Telemetry/MedSurg (observation) [place] Condition: Stable juan [place]go Problem: new ju[place] Symptoms: have improved ju[place] Bed/Room Type: Standard [place] Room Assignment: 225(03/10/24 22:54) rv1 Diagnosis - UTI/ Urinary tract infection, site not specified - esbl/ klebsiella juan [place]go - Chest pain, unspecified [place] - COPD/ Chronic obstructive pulmonary disease with (acute) exacerbation ju[place] - Essential (primary) hypertension juan [place]go Forms: - Medication Reconciliation Form juan [place]go - SBAR form juan [place]go - Leadership Thank You Letter ju[place] Signatures: Dispatcher [employer] Michael Meyer MD MD cha Villegas, Rebecca rv1 Uriel Cannon MD MD sp4 Nohemy Clark RN RN me1 Corrections: (The following items were deleted from the chart) 19:21 19:21 BASIC METABOLIC PANEL+C.LAB.BRZ ordered. EDMS EDMS 19:21 19:21 CBC+H.LAB.BRZ ordered. EDMS EDMS 19:21 19:21 HEPATIC FUNCTION+C.LAB.BRZ ordered. EDMS EDMS 19:21 19:21 MAGNESIUM+C.LAB.BRZ ordered. EDMS EDMS 19:21 19:21 PROBNP+C.LAB.BRZ ordered. EDMS EDMS 19:21 19:21 PROTIME (+INR)+COAG.LAB.BRZ ordered. EDMS EDMS 19:21 Troponin High Sensitivity+C.LAB.BRZ ordered. EDMS EDMS 19:21 Chest Single View+RAD.RAD.BRZ ordered. EDMS EDMS 22:54 20:35 [place] rv1
[2024-03-10] MEDS ORDERED: IPRATROPIUM BROM 0.5MG/2.5ML NEB PRN (21:34)
[2024-03-10] MEDS ORDERED: ALBUTEROL 2.5 MG/3 ML NEB SOL NEB PRN (21:34)
[2024-03-10] MEDS ORDERED: ONDANSETRON 4 MG/2 ML VIAL IV PRN (21:34)
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
--- NOTE | 2024-03-10 22:01 | RAD REPORT ---
Procedure: Chest Single View HISTORY: Cough COMPARISON: February 29, 2024 FINDINGS: Callus formation is present about multiple left ribs secondary to subacute fractures. 12 mm nodular opacity has developed overlying the mid to lower right chest. Otherwise the lungs appear clear of acute infiltrate. No significant pleural effusion noted. The heart is mildly enlarged.. IMPRESSION: 12 mm nodular opacity overlying the mid to lower right chest. This may represent callus formation abo ut a rib fracture,, a pulmonary nodule or nipple shadow.. It is recommended that the patient have oblique x-rays of the chest for further evaluation.
[2024-03-10] MEDS ORDERED: DIAZEPAM 5 MG TABLET ONE (22:08)
[2024-03-11 00:14] VITALS: BMI 21.1
[2024-03-11] MEDS ORDERED: HYDRALAZINE HCL 20 MG/ML VIAL IV PRN (00:40)
[2024-03-11] MEDS: Meropenem 500 MG in NA CHLORIDE 0.9% 100 ML IV SCH (01:12)
[2024-03-11] MEDS: DIAZEPAM 5 MG TABLET PO ONE (02:14)
[2024-03-11 07:03] LABS: Absolute Basophils 0.1 K/uL (0-0.5); Absolute Eosinophils 0.5 K/uL (0-0.5); Absolute Lymphocytes (CBC) 1.2 K/uL (0.7-4.9); Absolute Monocytes 0.7 K/uL (0.1-1.3); Absolute Neutrophil 6.9 K/uL (1.8-8.0); Basophils % 0.7 % (0-1.3); Eosinophils % 5.4 % (0-4.4); Hematocrit 31.5 % (36.0-45.0); Hemoglobin 10.3 g/dL (12.0-15.0); Lymphocytes % 12.3 % (15.3-44.8); MCHC 32.6 g/dL (32.0-36.0); MCV 89.1 fL (80-100); MPV 7.9 fL (7.6-11.3); Monocytes % 7.7 % (3.3-12.3); Neutrophils % 73.9 % (41.7-73.7); Nucleated Red Blood Cells % 0.1 % (0-0); Platelets 213 thou/uL (152-406); RBC Red Blood Cell Count 3.54 M/uL (3.86-4.86); Red Cell Distribution Width 17.3 % (12.1-15.2)
[2024-03-11 07:25] LABS: Albumin 2.6 g/dL (3.4-5.0); Albumin/Globulin Ratio 0.7 (1.1-1.8); Alkaline Phosphatase 69 U/L (45-117); BUN Blood Urea Nitrogen 10 mg/dL (7-18); Bicarbonate 33 mEq/L (21-32); Bilirubin Total 0.5 mg/dL (0.2-1.0); Globulin 3.6 g/dL (2.3-3.5); Glomerular Filtration Rate 102 ml/min (=/>90); Glucose Level 107 mg/dL (74-106); Protein, Total 6.2 g/dL (6.4-8.2); Sodium Level 141 mEq/L (136-145)
[2024-03-11 07:26] LABS: ALT/SGPT < 14 U/L (13-56); AST/SGOT < 10 U/L (15-37)
[2024-03-11] MEDS: DULERA 200/5 (MOMETASONE/FORMOTEROL) INHALER IH SCH (09:00)
[2024-03-11] MEDS: ASPIRIN EC 81 MG TAB PO SCH (09:08)
[2024-03-11] MEDS: ENOXAPARIN 40 MG/0.4 ML SQ SCH (09:08)
[2024-03-11] MEDS: carBAMazepine 200 MG TAB PO SCH (09:08)
[2024-03-11] MEDS: METOPROLOL TAR 25 MG TAB PO SCH (09:09)
[2024-03-11] MEDS: Meropenem 1,000 MG in NA CHLORIDE 0.9% 100 ML IV SCH (12:00)
--- NOTE | 2024-03-11 16:09 | P.PN ---
Subjective Date of Service: 03/11/24 Chief Complaint: Chest pain Admitted for anxiety and chest pain, no reported chest pain at this time, <Stacie Estrada - Last Filed: 03/11/24 16:15> Date of Service: 03/11/24 <Flo Gan - Last Filed: 03/17/24 04:54> Review of Systems 10-point ROS is otherwise unremarkable <Stacie Estrada - Last Filed: 03/11/24 16:15> Physical Examination - Vital Signs Temperature: 97.1 F Blood Pressure: 143/84 Pulse: 66 Respirations: 16 Pulse Ox (%): 95 - Physical Exam General: Alert, In no apparent distress, Oriented x3 HEENT: Atraumatic, Normocephalic, PERRLA Neck: 2+ carotid pulse no bruit Respiratory: Diminished, Expiratory wheezes Cardiovascular: Normal pulses, Regular rate/rhythm, Normal S1 S2 Capillary refill: <2 Seconds Gastrointestinal: Normal bowel sounds, Soft and benign Musculoskeletal: No clubbing, No swelling Integumentary: No breakdown, No significant lesion Neurological: Normal speech, Normal strength at 5/5 x4 extr, Sensation intact - Studies Laboratory Data (last 24 hrs) 03/10/24 03/10/24 03/10/24 19:51 19:51 19:51 WBC 7.60 Hgb 11.3 L Hct 33.9 L Plt Count 235 PT 9.7 INR 0.86 Sodium 140 Potassium 4.3 BUN 19 H Creatinine 1.29 H Glucose 69 L Magnesium 1.6 Total Bilirubin 0.2 AST 20 ALT 24 Alkaline Phosphatase 155 H <Stacie Estrada - Last Filed: 03/11/24 16:15> Assessment And Plan - Plan Assessment and Plan - Plan chest pain rule out CT Will trend cardiac enzymes-serial troponins negative Will monitor telemetry Started on aspirin and statin EKG did not show any acute changes suggestive of ischemia Will get an echocardiogram Cardiology consult HX CVA Supportive management Continue aspirin and statin Monitor closely on telemetry Hypertensive urgency Antihypertensives titrated Continue home medications and titrate as needed Hydralazine as needed Microcytic anemia Trend H&H transfuse less than 7 UTI with ESBL Continue meropenem Will obtain cultures Change antibiotic as per sensitivity Anxiety As needed anxiety medications GI/DVT prophylaxis Advanced directive full code Discharge Plan: Home Plan to discharge in: 48 Hours - Advance Directives Does patient have a Living Will: No Does patient have a Durable POA for Healthcare: No - Code Status/Comfort Care Code Status: Full Code Time Spent Managing Pts Care (In Minutes): 35 Discharge Plan: Home - Code Status/Comfort Care Comfort Measures: Palliative Care Critical Care: No Time Spent Managing PTS Care (In Minutes): 35 <Stacie Estrada - Last Filed: 03/11/24 16:15> Date of Service: 03/11/24 Chart has been reviewed. Events of the last 24 hours have been noted. Case discussed with SEGUN. I performed a substantial part of the MDM during this patient's care today. I personally made or approved the documented management plan and acknowledge its risk of complications. I agree with the findings and documentation provided in the SEGUN's notes <Flo Gan - Last Filed: 03/17/24 04:54>
[2024-03-11] MEDS: ACETAMINOPHEN 325 MG TABLET PO PRN ×2 (16:36→23:20)
[2024-03-11] MEDS: FUROSEMIDE 40 MG/4 ML VIAL IV SCH (16:37)
[2024-03-11] MEDS: ATORVASTATIN 40 MG TAB PO SCH (19:31)
[2024-03-11] MEDS: FENTANYL CITR 100 MCG/2 ML IV PRN (19:32)
[2024-03-12] MEDS: TRAZODONE 50 MG TABLET PO PRN (02:46)
[2024-03-12 07:19] LABS: Anion Gap 9.8 mEq/L (5.0-15.0); Magnesium 1.6 mg/dL (1.6-2.4); Potassium 3.8 mEq/L (3.5-5.1)
[2024-03-12] MEDS: MAGNESIUM SULFATE 1 gm IVPB 1 GM/100 ML BAG IV ONE (09:24)
[2024-03-12] MEDS: POTASSIUM CL SA 10 MEQ TAB PO ONE (09:25)
[2024-03-12 09:47] VITALS: O2SAT 99
[2024-03-12 10:02] VITALS: TEMP 98.6
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
[2024-03-12 13:49] VITALS: BP 141/82
--- NOTE | 2024-03-12 15:53 | P.DS ---
Admission Date: 03/10/24 Discharge Date: 03/12/24 Reason for Admission: Chest pain Brief History of Present Illness: 48 yrs old Female with past medical history of CVA, COPD, hypertension, presents to ER with Chest Pain, and anxiety. Chest pain primarily located in substernal area which started 2 days ago and has been progressively worsening.. Pain does not radiate. Associated with cough and lightheadedness and shortness of breath. Feels like heaviness. Patient was assessed in the ER and was admitted for further management of chest pain to rule out ACS. Patient also complains of dysuria. Recently been diagnosed with ESBL Klebsiella - Physical Exam General: Alert, Mild distress HEENT: Atraumatic, Normocephalic Neck: Supple Respiratory: Clear to auscultation bilaterally, Normal air movement Cardiovascular: Regular rate/rhythm, Normal S1 S2 Capillary refill: <2 Seconds Gastrointestinal: Soft and benign Musculoskeletal: No clubbing, No swelling Integumentary: No rashes Neurological: Other (Alert) Lymphatics: No axilla or inguinal lymphadenopathy Hospital Course: 48 yrs old Female with past medical history of CVA, COPD, hypertension, presents to ER with Chest Pain, and anxiety. Chest pain primarily located in substernal area which started 2 days ago and has been progressively worsening.. Pain does not radiate.Associated with cough and lightheadedness and shortness of breath. Feels like heaviness. Patient was assessed in the ER and was admitted for further management of chest pain to rule out ACS. Patient also complains of dysuria. Recently been diagnosed with ESBL Klebsiella started on IV meropenem. Discharged home on on fosfomycin 1 g p.o. Saturday #12. She was seen by cardiology, serial troponins negative, recent coronary angiogram was normal. Per cardiology Ms. Khan can discharge home on Lasix, spironolactone follow-up with cardiology outpatient. Additionally treated for COPD exacerbation steroids, nebulizers, Continue home medicines as previously prescribed GOAL: Clear understanding of disease process INSTRUCTIONS: Physician Discharge Instructions: -Follow-up with cardiology outpatient -Follow-up with pulmonary outpatient for COPD -Follow-up with PCP in 1 to 2 weeks -Please call Dr. Gan at [phone] if any questions regarding hospital stay -Please call nursing station at [phone] if any nursing or medication questions -Return to the emergency room if symptoms worsen Diet: ADA, low sodium Activity: Fall precautions <Stacie Estrada - Last Filed: 03/12/24 15:54> Admission Date: 03/10/24 Discharge Date: 03/12/24 Hospital Course: Chart has been reviewed. Events of the last 24 hours have been noted. Case discussed with SEGUN. I performed a substantial part of the MDM during this patient's care today. I personally made or approved the documented management plan and acknowledge its risk of complications. I agree with the findings and documentation provided in the SEGUN's notes <Flo Gan - Last Filed: 03/17/24 04:55> Disposition: ROUTINE DISCHARGE Discharge Condition: GOOD Vital Signs/Physical Exam: Temp Pulse Resp BP Pulse Ox 98.6 F 64 12 141/82 H 99 03/12/24 12:00 03/12/24 12:00 03/12/24 12:00 03/12/24 12:00 03/12/24 12:00 Laboratory Data at Discharge: WBC 9.40 thou/uL (4.3-10.9) 03/11/24 06:25 Hgb 10.3 g/dL (12.0-15.0) L D 03/11/24 06:25 Hct 31.5 % (36.0-45.0) L 03/11/24 06:25 Plt Count 213 thou/uL (152-406) 03/11/24 06:25 PT 9.7 SECONDS (9.4-12.5) 03/10/24 19:51 INR 0.86 03/10/24 19:51 Sodium 139 mEq/L (136-145) 03/12/24 06:12 Potassium 3.8 mEq/L (3.5-5.1) 03/12/24 06:12 BUN 20 mg/dL (7-18) H 03/12/24 06:12 Creatinine 1.11 mg/dL (0.55-1.02) H 03/12/24 06:12 Glucose 97 mg/dL (74-106) 03/12/24 06:12 Magnesium 1.6 mg/dL (1.6-2.4) 03/12/24 06:12 Total Bilirubin 0.5 mg/dL (0.2-1.0) 03/11/24 06:25 AST < 10 U/L (15-37) L 03/11/24 06:25 ALT < 14 U/L (13-56) 03/11/24 06:25 Alkaline Phosphatase 69 U/L (45-117) D 03/11/24 06:25 <SeanStacie - Last Filed: 03/12/24 15:54> Vital Signs/Physical Exam: Temp Pulse Resp BP Pulse Ox 98.6 F 64 12 141/82 H 99 03/12/24 12:00 03/12/24 12:00 03/12/24 12:00 03/12/24 12:00 03/12/24 12:00 General: Alert, In no apparent distress, Oriented x3 Laboratory Data at Discharge: WBC 9.40 thou/uL (4.3-10.9) 03/11/24 06:25 Hgb 10.3 g/dL (12.0-15.0) L D 03/11/24 06:25 Hct 31.5 % (36.0-45.0) L 03/11/24 06:25 Plt Count 213 thou/uL (152-406) 03/11/24 06:25 PT 9.7 SECONDS (9.4-12.5) 03/10/24 19:51 INR 0.86 03/10/24 19:51 Sodium 139 mEq/L (136-145) 03/12/24 06:12 Potassium 3.8 mEq/L (3.5-5.1) 03/12/24 06:12 BUN 20 mg/dL (7-18) H 03/12/24 06:12 Creatinine 1.11 mg/dL (0.55-1.02) H 03/12/24 06:12 Glucose 97 mg/dL (74-106) 03/12/24 06:12 Magnesium 1.6 mg/dL (1.6-2.4) 03/12/24 06:12 Total Bilirubin 0.5 mg/dL (0.2-1.0) 03/11/24 06:25 AST < 10 U/L (15-37) L 03/11/24 06:25 ALT < 14 U/L (13-56) 03/11/24 06:25 Alkaline Phosphatase 69 U/L (45-117) D 03/11/24 06:25 <Flo Gan - Last Filed: 03/17/24 04:55> Diet: Regular Activity: Fall precautions Time spent managing pt's care (in minutes): 45 <Stacie Estrada - Last Filed: 03/12/24 15:54> <Flo Gan - Last Filed: 03/17/24 04:55> Home Medications: Carbamazepine [Tegretol] 200 mg PO BID 12/28/23 Diazepam [Valium] 5 mg DAILY 12/28/23 Metoprolol Tartrate [Lopressor*] 12.5 mg BID 12/28/23 Pantoprazole Sodium 40 mg DAILY 12/28/23 hydrOXYzine HCL [Atarax*] 25 mg Q6HR 12/28/23 traMADol HCL [Ultram*] 50 mg Q8HR 12/28/23 Ensure Enlive 237 ml PO BID #30 can 01/03/24 Magnesium Chloride [Slow-Mag*] 128 mg PO BID #60 tab 01/03/24 Mometasone/Formoterol [Dulera 200 Mcg/5 Mcg Inhaler] 2 puff IH BID #1 inhaler 01/03/24 Mupirocin Calcium [Bactroban Nasal*] 1 appl THOMAS BID #1 tube 01/03/24 Albuterol Neb [Proventil 0.083% Neb Soln] 2.5 mg NEB Q6HP PRN #60 amp 03/12/24 Atorvastatin Calcium [Lipitor] 40 mg PO BEDTIME tab 03/12/24 Fosfomycin Tromethamine 3 gm PO M,W,F #12 packet 03/12/24 Hydrocodone 10/APAP 325 [[place] 10/325] 1 tab PO Q6H PRN #30 tab 03/12/24 Ipratropium Neb [Atrovent*] 0.5 mg NEB [id number] PRN #60 amp 03/12/24 Nebulizer 1 each MC DAILY #1 ea 03/12/24 Nebulizer Accessories [Aeroneb Go] 1 each MC DAILY #1 ea 03/12/24 predniSONE [Deltasone] 20 mg PO BID #15 tab 03/12/24 New Medications: Nebulizer Accessories [Aeroneb Go] 1 each MC DAILY #1 ea Ipratropium Neb [Atrovent*] 0.5 mg NEB [id number] PRN #60 amp PRN Reason: Shortness Of Breath Fosfomycin Tromethamine 3 gm PO M,W,F #12 packet Nebulizer 1 each MC DAILY #1 ea Hydrocodone 10/APAP 325 [[place] 10/325] 1 tab PO Q6H PRN #30 tab PRN Reason: Pain predniSONE [Deltasone] 20 mg PO BID #15 tab Albuterol Neb [Proventil 0.083% Neb Soln] 2.5 mg NEB Q6HP PRN #60 amp PRN Reason: Shortness Of Breath Physician Discharge Instructions: -DC IV and DC home -Follow-up with PCP in 1 to 2 weeks -Follow-up with Cardiology in 1 to 2 weeks -Please call Dr. Gan at [phone] if any questions regarding hospital stay -Please call nursing station at [phone] if any nursing or medication questions -Return to the emergency room if symptoms worsen Followup: Alan Garay MD [ACTIVE - CAN ADMIT] - NONE,NONE [Primary Care Provider] -
--- NOTE | 2024-03-13 13:42 | EKG ---
Test Date: 2024-03-10 Test Time: 20:04:35 Run Boat Operator: MEASUREMENT RESULTS: Intervals: Rate: 80 VA: 174 QRSD: 82 QT: 392 QTc: 452 [place]: P: 47 VA: 174 QRS: -4 T: 147 INTERPRETIVE STATEMENTS: Normal sinus rhythm Left ventricular hypertrophy with repolarization abnormality Abnormal ECG Compared to ECG 03/08/2024 20:41:09 Myocardial infarct finding no longer present Electronically Signed On 03-13-24 13:37:33 LEAD RIDER by Josse Olson
== END 2024-03-12 17:05 | disposition home or self-care (01) | DRG 280 ==
LOC: ER 19:09 → ERHOLD 21:34 → 2ND 23:10
PROVIDERS: ADMIT Family Medicine; ATTEND Hospitalist
PROC: 05HB33Z Insertion of Infusion Device into Right Basilic Vein, Percutaneous Approach (ICD-10-PCS; principal; 2024-03-11)
DX: I11.0 Hypertensive heart disease with heart failure (principal); I50.31 Acute diastolic (congestive) heart failure; I21.4 Non-ST elevation (NSTEMI) myocardial infarction; N39.0 Urinary tract infection, site not specified; Z16.12 Extended spectrum beta lactamase (ESBL) resistance; J44.1 Chronic obstructive pulmonary disease with (acute) exacerbation; I16.0 Hypertensive urgency; D50.9 Iron deficiency anemia, unspecified; F41.9 Anxiety disorder, unspecified; I25.2 Old myocardial infarction; B96.1 Klebsiella pneumoniae [K. pneumoniae] as the cause of diseases classified elsewhere; F17.210 Nicotine dependence, cigarettes, uncomplicated; Z88.6 Allergy status to analgesic agent; Z86.73 Personal history of transient ischemic attack (TIA), and cerebral infarction without residual deficits; Z91.013 Allergy to seafood; Z91.018 Allergy to other foods; Z79.52 Long term (current) use of systemic steroids; Z79.899 Other long term (current) drug therapy
CPT/HCPCS: 36415; 71045; 80048; 80053; 80076; 83735; 83880; 84484; 85025; 85610; 93005; 94760; 96361; 96365; 96375; 99285; J1650; J1940; J2185; J2919; J3010; J3475; J3535; J7040; J7614; J7644

== ENCOUNTER 2024-03-13 21:56 | Emergency (ER) | payer OTHER ==
[2024-03-13] MEDS ORDERED: HYDROCODONE/APAP 10/325 TAB ONE (22:37)
--- NOTE | 2024-03-13 22:57 | ER ---
Nurse's Notes [facility] Name: Geetha Khan Age: 48 yrs Sex: Female : 1975 Arrival Date: 03/13/2024 Time: 21:56 Bed 6 Private MD: Diagnosis: Chronic chest pain Presentation: 03/13 21:59 Chief complaint: EMS states: toned out for chest pain and left shoulder pain. Pt states dd2 hid her pain pills. Coronavirus screen: At this time, the client does not indicate any symptoms associated with coronavirus-19. Ebola Screen: No symptoms or risks identified at this time. Initial Sepsis Screen: Does the patient meet any 2 criteria? No. Patient's initial sepsis screen is negative. Does the patient have a suspected source of infection? No. Patient's initial sepsis screen is negative. Risk Assessment: Do you want to hurt yourself or someone else? Patient reports no desire to harm self or others. Onset of symptoms was March 13, 2024. 21:59 Method Of Arrival: EMS: [facility] dd2 21:59 Acuity: CORRINA 3 dd2 Triage Assessment: 22:02 General: Appears in no apparent distress. Behavior is calm, cooperative, appropriate dd2 for age. Pain: Complains of pain in anterior aspect of left upper chest and anterior aspect of left shoulder Pain does not radiate. Pain currently is 10 out of 10 on a pain scale. EENT: No deficits noted. No signs and/or symptoms were reported regarding the EENT system. Neuro: Level of Consciousness is awake, alert, obeys commands, Oriented to person, place, time, situation. Cardiovascular: Reports chest pain, Patient's skin is warm and dry. Respiratory: No deficits noted. Airway is patent Respiratory effort is even, unlabored, Respiratory pattern is regular, symmetrical. GI: No deficits noted. No signs and/or symptoms were reported involving the gastrointestinal system. : No deficits noted. No signs and/or symptoms were reported regarding the genitourinary system. Derm: No deficits noted. No signs and/or symptoms reported regarding the dermatologic system. Musculoskeletal: Circulation, motion, and sensation intact. Range of motion: intact in all extremities, Reports pain in anterior aspect of left shoulder. 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 - Infectious Disease History:: Denies. - Social history:: Smoking status: Patient denies any tobacco usage or history of. Screenin:[address] [facility] ED Fall Risk Assessment (Adult) History of falling in the last 3 months, dd2 including since admission Yes- single mechanical fall (1 pt) Confusion or Disorientation No (0 pts) Intoxicated or Sedated No (0 pts) Impaired Gait Yes (1 pt) Mobility Assist Device Used Yes (1 pt) Altered Elimination No (0 pt) Score/Fall Risk Level 0 - 2 = Low Risk Oriented to surroundings, Maintained a safe environment, Educated pt \T\ family on fall prevention, incl call for assistance when getting out of bed, Assessed \T\ reinforced patient's understanding of fall precautions, Hourly rounding (assess needs \T\ fall precautionary measures) done. Abuse screen: Denies threats or abuse. Nutritional screening: No deficits noted. Tuberculosis screening: No symptoms or risk factors identified. Assessment: 22:06 Reassessment: SEE TRIAGE ASSESSMENT FOR FULL ASSESSMENT. dd2 22:32 Reassessment: Patient appears in no apparent distress at this time. Patient and/or bm8 family updated on plan of care and expected duration. Pain level reassessed. Patient is alert, oriented x 3, equal unlabored respirations, skin warm/dry/pink. General: Appears in no apparent distress. comfortable, Behavior is calm, cooperative, appropriate for age. Pain: Complains of pain in chest Pain currently is 10 out of 10 on a pain scale. Pain began 2 hours ago. Neuro: Level of Consciousness is awake, alert, obeys commands, Oriented to person, place, time, situation, Appropriate for age. Cardiovascular: Reports chest pain, Capillary refill < 3 seconds in bilateral fingers toes Patient's skin is warm and dry. Rhythm is sinus rhythm. Respiratory: Airway is patent Trachea midline Respiratory effort is even, unlabored, Respiratory pattern is regular, symmetrical, Breath sounds are clear bilaterally. GI: No signs and/or symptoms were reported involving the gastrointestinal system. : No signs and/or symptoms were reported regarding the genitourinary system. EENT: No signs and/or symptoms were reported regarding the EENT system. Derm: No signs and/or symptoms reported regarding the dermatologic system. Musculoskeletal: No signs and/or symptoms reported regarding the musculoskeletal system. 23:05 Reassessment: Patient appears in no apparent distress at this time. Patient and/or bm8 family updated on plan of care and expected duration. Pain level reassessed. Patient is alert, oriented x 3, equal unlabored respirations, skin warm/dry/pink. Patient denies pain at this time. Patient states feeling better. Patient states symptoms have improved. Pain: Denies pain. Vital Signs: 21:59 BP 121 / 80; Pulse 82; Resp 16; Temp 98.2(O); Pulse Ox 99% on R/A; Weight 63.5 kg; dd2 Height 5 ft. 2 in. ; Pain 10/10; 22:32 BP 122 / 93; Pulse 75; Resp 18; Temp 98.2; Pulse Ox 100% ; Pain 10/10; bm8 23:05 BP 133 / 94; Pulse 76; Resp 18; Temp 98.2; Pulse Ox 100% ; Pain 0/10; bm8 21:59 Body Mass Index 25.61 (63.50 kg, 157.48 cm) dd2 21:59 Pain Scale: Adult dd2 22:32 Pain Scale: Adult bm8 23:05 Pain Scale: Adult bm8 [place] Score: 22:06 Eye Response: spontaneous(4). Motor Response: obeys commands(6). Verbal Response: dd2 oriented(5). Total: 15. 22:32 Eye Response: spontaneous(4). Motor Response: obeys commands(6). Verbal Response: bm8 oriented(5). Total: 15. 23:05 Eye Response: spontaneous(4). Motor Response: obeys commands(6). Verbal Response: bm8 oriented(5). Total: 15. ED Course: 21:57 Patient arrived in ED. dd2 22:02 Triage completed. dd2 22:05 Arm band placed on right wrist. Patient placed in an exam room, on a stretcher, on dd2 pulse oximetry. 22:06 Patient has correct armband on for positive identification. Bed in low position. Call dd2 light in reach. Side rails up X2. Client placed on continuous cardiac and pulse oximetry monitoring. NIBP monitoring applied. Door closed. Noise minimized. Warm blanket given. Pillow given. Verbal reassurance given. 22:06 No provider procedures requiring assistance completed. Patient maintains SpO2 dd2 saturation greater than 95% on room air. 22:08 Sylvia Barker MD is Attending Physician. sd2 22:22 Rene Bcaa, RN is Primary Nurse. bm8 22:32 Provided Education on: post er care. bm8 22:32 Patient did not have IV access during this emergency room visit. bm8 22:36 EKG done, by ED staff, reviewed by Sylvia Barker MD. bm8 Administered Medications: 22:46 Drug: HYDROcodone-acetaminophen PO 10 mg-325 mg 1 tabs PO once Route: PO; bm8 23:06 Follow up: Response: No adverse reaction bm8 Medication: 22:06 VIS not applicable for this client. dd2 Outcome: 22:57 Discharge ordered by . sd2 23:05 Discharged to home via wheelchair, bm8 23:05 Condition: stable 23:05 Discharge instructions given to patient, Instructed on discharge instructions, follow up and referral plans. no drinking with medication, no driving heavy equipment, medication usage, Demonstrated understanding of instructions, follow-up care, medications, 23:07 Patient left the ED. bm8 Signatures: Sylvia Barker MD MD sd2 Rene Baca, RN RN 8 MAGGIE GIBSON RN RN dd2 Corrections: (The following items were deleted from the chart) 22:05 22:02 Musculoskeletal: No signs and/or symptoms reported regarding the musculoskeletal dd2 system. dd2 22:36 22:32 Pulse 75bpm; Resp 18bpm; Pulse Ox 100%; Temp 98.2F; Pain 10/10, Adult; bm8 bm8 22:46 22:32 BP 116 / 101; Pulse 75bpm; Resp 18bpm; Pulse Ox 100%; Temp 98.2F; Pain 10/10, bm8 Adult; bm8
--- NOTE | 2024-03-13 22:57 | EDPHYS ---
Physician Documentation [facility] Name: Geetha Khan Age: 48 yrs Sex: Female : 1975 Arrival Date: 03/13/2024 Time: 21:56 Bed 6 Private MD: ED Physician Sylvia Barker HPI: 03/13 22:24 This 48 yrs old Female presents to ER via EMS with complaints of Chest Pain, Shoulder sd2 Pain. 22:24 48 yo F presents via EMS with CC of midsternal non-radiating CP. No SOB, diaphoresis, sd2 n/v. She has been to our facility numerous times for the same symptoms with negative cardiac workup. Reports her most recent hospital admission she was discharged home with [facility] which has been managing her chest pain. However, she was unable to find the bottle at home and did not have her phone to call her .. 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 - Infectious Disease History:: Denies. - Social history:: Smoking status: Patient denies any tobacco usage or history of. ROS: 22:24 Constitutional: Negative for fever, chills, and weight loss, Eyes: Negative for injury, sd2 pain, redness, and discharge, 22:24 Respiratory: Negative for shortness of breath, cough, wheezing. Abdomen/GI: Negative for abdominal pain, nausea, vomiting, diarrhea. MS/Extremity: Negative for injury and deformity, Skin: Negative for injury, rash, and discoloration, 22:24 Cardiovascular: Positive for chest pain, Negative for orthopnea, palpitations, Exam: 22:24 Constitutional: This is a well developed, well nourished patient who is awake, alert, sd2 and in no acute distress. Head/Face: Normocephalic, atraumatic. Eyes: EOMI, normal conjunctiva bilaterally Chest/axilla: Normal chest wall appearance and motion. Nontender with no deformity. Cardiovascular: Regular rate and rhythm with a normal S1 and S2. No gallops, murmurs, or rubs. 2+ distal pulses. Respiratory: Lungs have equal breath sounds bilaterally, clear to auscultation and percussion. No rales, rhonchi or wheezes noted. No increased work of breathing, no retractions or nasal flaring. Abdomen/GI: Soft, non-tender, with normal bowel sounds. No guarding or rebound. No evidence of tenderness throughout. Skin: Warm, dry with normal turgor. Normal color with no rashes, no lesions, and no evidence of cellulitis. MS/ Extremity: Pulses equal, no cyanosis. Neurovascular intact. Psych: Awake, alert, with orientation to person, place and time. Behavior, mood, and affect are within normal limits. 22:56 ECG was reviewed by the Attending Physician. NSR, rate 76, no STEMI criteria or sd2 significant change compared to prior EKG on 03/10/24 Vital Signs: 21:59 BP 121 / 80; Pulse 82; Resp 16; Temp 98.2(O); Pulse Ox 99% on R/A; Weight 63.5 kg; dd2 Height 5 ft. 2 in. ; Pain 10/10; 22:32 BP 122 / 93; Pulse 75; Resp 18; Temp 98.2; Pulse Ox 100% ; Pain 10/10; bm8 23:05 BP 133 / 94; Pulse 76; Resp 18; Temp 98.2; Pulse Ox 100% ; Pain 0/10; bm8 21:59 Body Mass Index 25.61 (63.50 kg, 157.48 cm) dd2 21:59 Pain Scale: Adult dd2 22:32 Pain Scale: Adult bm8 23:05 Pain Scale: Adult bm8 Mariluz Coma Score: 22:06 Eye Response: spontaneous(4). Motor Response: obeys commands(6). Verbal Response: dd2 oriented(5). Total: 15. 22:32 Eye Response: spontaneous(4). Motor Response: obeys commands(6). Verbal Response: bm8 oriented(5). Total: 15. 23:05 Eye Response: spontaneous(4). Motor Response: obeys commands(6). Verbal Response: bm8 oriented(5). Total: 15. MDM: 22:08 Medical Screening Exam initiated sd2 22:24 Differential diagnosis: ACS, angina, MSK, PE, PTX among others. Data reviewed: vital sd2 signs, nurses notes, EMS record, EKG. Historians other than the Patient: EMS: . Care significantly affected by the following chronic conditions: Hypertension. Counseling: I had a detailed discussion with the patient and/or guardian regarding the historical points, exam findings, and any diagnostic results supporting the discharge/admit diagnosis, the need for outpatient follow up, to return to the emergency department if symptoms worsen or persist or if there are any questions or concerns that arise at home. Refusal of service: The patient/guardian displays adequate decision making capability and despite a detailed discussion of alternatives, benefits, risks, and consequences refuses: all lab tests, all X-rays, Pt declined labs and XRs. Just wants her home dose of hydrocodone and to be discharged home as this is a chronic issue and is unchanged.. 03/13 22:30 Order name: EKG - Nurse/Tech; Complete Time: 22:36 sd2 Administered Medications: 22:46 Drug: HYDROcodone-acetaminophen PO 10 mg-325 mg 1 tabs PO once Route: PO; bm8 23:06 Follow up: Response: No adverse reaction bm8 Disposition Summary: 03/13/24 22:57 Discharge Ordered Problem: an ongoing problem sd2 Symptoms: have improved sd2 Condition: Stable sd2 Diagnosis - Chronic chest pain sd2 Followup: sd2 - With: Private Physician - When: 2 - 3 days - Reason: Recheck today's complaints, Continuance of care, Re-evaluation by your physician Discharge Instructions: - Discharge Summary Sheet sd2 - Nonspecific Chest Pain, Adult sd2 - Chronic Pain, Adult sd2 Forms: - Medication Reconciliation Form sd2 - Antibiotic Education sd2 - Prescription Opioid Use sd2 - Patient Portal Instructions sd2 - Leadership Thank You Letter sd2 Signatures: Sylvia Barker MD MD sd2 Rene Baca RN RN bm8 MAGGIE GIBSON RN RN dd2
[2024-03-13 23:32] VITALS: TEMP 98.2
[2024-03-13 23:34] VITALS: O2SAT 100
[2024-03-13 23:36] VITALS: BP 133/94
--- NOTE | 2024-03-16 11:17 | EKG ---
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
== END 2024-03-13 23:07 | disposition home or self-care (01) ==
LOC: ER 21:56
DX: R07.9 Chest pain, unspecified (principal); I10 Essential (primary) hypertension; I25.2 Old myocardial infarction; Z86.73 Personal history of transient ischemic attack (TIA), and cerebral infarction without residual deficits
CPT/HCPCS: 93005; 99284

== ENCOUNTER 2024-03-17 21:47 | Emergency (ER) | payer OTHER ==
[2024-03-17] MEDS ORDERED: LORAZEPAM 1 MG TABLET ONE (22:09)
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
--- NOTE | 2024-03-17 23:07 | EDPHYS ---
Physician Documentation [facility] Name: Geetha Khan Age: 48 yrs Sex: Female : 1975 Arrival Date: 03/17/2024 Time: 21:47 Bed 19 Private MD: ED Physician Michael Grimm HPI: 03/17 21:57 This 48 yrs old Female presents to ER via Unassigned with complaints of juan diego Anxiety. 21:57 The patient or guardian complains of decreased range of motion, pain, that is chronic. juan diego The complaints affect the left bicep, dorsal aspect of left forearm, left tricep and palmar aspect of left forearm. Context: The problem was sustained at home, resulted from a chronic condition, [facility]. Onset: The symptoms/episode began/occurred 2 day(s) ago. Treatment prior to arrival includes: no previous treatment. The patient presents with decreased range of motion, pain. Modifying factors: The symptoms are alleviated by nothing. the symptoms are aggravated by nothing. The patient presents to the emergency department with anxiety, over unknown circumstances. Past psychiatric history: Prior diagnosis: anxiety. 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 Historical: - Allergies: 21:59 Aspirin; cp4 21:59 CRANBERRY; cp4 21:59 FISH PRODUCT DERIVATIVES; cp4 21:59 GRAPEFRUIT; cp4 21:59 SHELLFISH; cp4 - Home Meds: 21:59 lisinopril Oral [Active]; amlodipine oral [Active]; atorvastatin oral [Active]; cp4 Carbamazepine Oral [Active]; clopidogrel oral [Active]; Metoprolol Tartrate Oral [Active]; Nitroglycerin SL [Active]; quetiapine oral [Active]; Zofran Oral [Active]; - PMHx: 21:59 Cerebrovascular accident; Chronic obstructive lung disease; Hypertensive disorder; cp4 Myocardial infarction; Seizure; - Immunization history:: Adult Immunizations up to date. - Infectious Disease History:: Denies. - Family history:: not pertinent. - Social history:: Smoking status: Patient reports the use of cigarette tobacco products, denies chronic smoking, but will smoke occasionally. ROS: 21:57 Constitutional: Negative for fever, chills, and weight loss, Eyes: Negative for injury, juan diego pain, redness, and discharge, ENT: Negative for injury, pain, and discharge, Neck: Negative for injury, pain, and swelling, Respiratory: Negative for shortness of breath, cough, wheezing, and pleuritic chest pain, Abdomen/GI: Negative for abdominal pain, nausea, vomiting, diarrhea, and constipation, Back: Negative for injury and pain, : Negative for injury, bleeding, discharge, and swelling, MS/Extremity: Negative for injury and deformity, Skin: Negative for injury, rash, and discoloration, Neuro: Negative for headache, weakness, numbness, tingling, and seizure, Psych: Negative for depression, anxiety, suicide ideation, homicidal ideation, and hallucinations, Allergy/Immunology: Negative for hives, rash, and allergies, Endocrine: Negative for neck swelling, polydipsia, polyuria, polyphagia, and marked weight changes, Hematologic/Lymphatic: Negative for swollen nodes, abnormal bleeding, and unusual bruising, 21:57 Cardiovascular: Positive for chest pain, of the chest, Exam: 21:57 Constitutional: This is a well developed, well nourished patient who is awake, alert, juan diego and in no acute distress. Head/Face: Normocephalic, atraumatic. Eyes: Pupils equal round and reactive to light, extra-ocular motions intact. Lids and lashes normal. Conjunctiva and sclera are non-icteric and not injected. Cornea within normal limits. Periorbital areas with no swelling, redness, or edema. ENT: Nares patent. No nasal discharge, no septal abnormalities noted. Tympanic membranes are normal and external auditory canals are clear. Oropharynx with no redness, swelling, or masses, exudates, or evidence of obstruction, uvula midline. Mucous membranes moist. Neck: Trachea midline, no thyromegaly or masses palpated, and no cervical lymphadenopathy. Supple, full range of motion without nuchal rigidity, or vertebral point tenderness. No Meningismus. Chest/axilla: Normal chest wall appearance and motion. Nontender with no deformity. No lesions are appreciated. Cardiovascular: Regular rate and rhythm with a normal S1 and S2. No gallops, murmurs, or rubs. Normal PMI, no JVD. No pulse deficits. Respiratory: Lungs have equal breath sounds bilaterally, clear to auscultation and percussion. No rales, rhonchi or wheezes noted. No increased work of breathing, no retractions or nasal flaring. Back: No spinal tenderness. No costovertebral tenderness. Full range of motion. Skin: Warm, dry with normal turgor. Normal color with no rashes, no lesions, and no evidence of cellulitis. MS/ Extremity: Pulses equal, no cyanosis. Neurovascular intact. Full, normal range of motion., bilateral aka Neuro: Awake and alert, GCS 15, oriented to person, place, time, and situation. Cranial nerves II-XII grossly intact. Motor strength 5/5 in all extremities. Sensory grossly intact. Cerebellar exam normal. Normal gait. Psych: Awake, alert, with orientation to person, place and time. Behavior, mood, and affect are within normal limits. 21:57 Musculoskeletal/extremity: ROM: left arm and leg hemiparesis, no changes Compartment Syndrome exam of affected extremity: is normal. Joints: All joints appear normal with full range of motion. Weight bearing: able to fully bear weight, without difficulty, 22:16 ECG was reviewed by the Attending Physician. [facility] Vital Signs: 21:58 BP 153 / 97; Pulse 88; Resp 18; Temp 98.1; Pulse Ox 97% ; cp4 22:55 BP 152 / 97; Pulse 92; Resp 18; Pulse Ox 95% ; cp4 Mariluz Coma Score: 21:57 Eye Response: spontaneous(4). Motor Response: obeys commands(6). Verbal Response: juan [place]go oriented(5). Total: 15. MDM: 21:52 Medical Screening Exam initiated juan diego 22:03 Differential diagnosis: depression, abnormal EKG, acute myocardial infarction, acute juan diego pericarditis, anxiety, coronary artery disease chest wall pain. HEART Score: History: Slightly Suspicious (0), ECG: Non specific repolarization disturbance / LBTB / PM (1), Age: > 45 and < 65 years (1), Risk Factors: > or = 3 Risk factors for atherosclerotic disease (2), [Hypertension] [Active Smoker] [+ Family HX] Troponin: < or = 1 x Normal Limit (0). The patient was given aspirin in the Emergency Department. YEVGENIY Risk Score: 1 - Three or more CAD risk factors, [Family Hx], [HTN], [Active Smoker]. Data reviewed: vital signs, nurses notes, lab test result(s), EKG. Consideration of Admission/Observation Escalation of care including admission/observation considered. I considered the following discharge prescriptions or medication management in the emergency department Medications were administered in the Emergency Department. See MAR. Independent interpretation of the following test(s) in the Emergency Department EKG: See my EKG interpretation above. Test considered but Not performed: Ultrasound 2 d echo. 03/17 21:53 Order name: Troponin High Sensitivity; Complete Time: 23:06 [facility] 03/17 21:53 Order name: EKG; Complete Time: 21:53 [facility] 03/17 21:53 Order name: EKG - Nurse/Tech; Complete Time: 22:07 [facility] EC:16 Rate is 99 beats/min. Rhythm is regular. QRS Warrior is Normal. QRS interval is normal. QT juan [place]go interval is normal. No Q waves. T waves are Normal. No ST changes noted. Clinical impression: Abnormal EKG without significant change, LVH, and No evidence of ischemia. Interpreted by me. Reviewed by me. Administered Medications: 22:11 Drug: LORazepam PO 1 mg PO once Route: PO; cp4 23:15 Follow up: Response: No adverse reaction cp4 Disposition Summary: 03/17/24 23:07 Discharge Ordered Notes: Location: Home juan diego Problem: new juan diego Symptoms: have improved juan diego Condition: Stable juan diego Diagnosis - Chest pain, unspecified juan diego - Adjustment disorder with anxiety juan diego Followup: juan diego - With: Private Physician - When: 2 - 3 days - Reason: Recheck today's complaints, Continuance of care, Re-evaluation by your physician Followup: juan [place] - With: Josse Olson MD - When: 2 - 3 days - Reason: Recheck today's complaints, Continuance of care, Re-evaluation by your physician Followup: juan [place]go - With: Glenn Molina MD - When: 2 - 3 days - Reason: Recheck today's complaints, Re-evaluation by your physician Discharge Instructions: - Discharge Summary Sheet juan diego - Nonspecific Chest Pain, Adult juan diego - Steps to Quit Smoking juan diego - Nonspecific Chest Pain, Adult, [id number] juan diego - Steps to Quit Smoking, [id number] juan diego - Panic Attack, [id number] juan diego - Smoking Tobacco Information, Adult [facility] Forms: - Medication Reconciliation Form juan diego - Antibiotic Education juan diego - Prescription Opioid Use juan diego - Patient Portal Instructions [facility] - Leadership Thank You Letter [facility] Prescriptions: - Hydroxyzine HCl 25 mg Oral tablet - take 1 tablet ORAL route every 6 hours As needed; 25 tablet; Refills: 0, juan diego Product Selection Permitted Signatures: Dispatcher [employer] Michael Meyer MD MD cha Potter, Christina cp4
[2024-03-18 06:12] VITALS: TEMP 98.1
[2024-03-18 06:14] VITALS: BP 152/97; O2SAT 95
--- NOTE | 2024-03-20 12:46 | EKG ---
Test Date: 2024-03-17 Test Time: 22:06:52 Integrative Medicine Physician: MEASUREMENT RESULTS: Intervals: Rate: 99 DE: 156 QRSD: 82 QT: 360 QTc: 462 [place]: P: 62 DE: 156 QRS: 16 T: 152 INTERPRETIVE STATEMENTS: Normal sinus rhythm Left ventricular hypertrophy with repolarization abnormality Abnormal ECG Compared to ECG 03/13/2024 22:41:55 No significant changes Electronically Signed On 03-20-24 12:42:30 MARKETING DIRECTOR by Alan Garay
== END 2024-03-17 23:17 | disposition home or self-care (01) ==
LOC: ER 21:47
DX: F43.22 Adjustment disorder with anxiety (principal); I10 Essential (primary) hypertension; Z86.73 Personal history of transient ischemic attack (TIA), and cerebral infarction without residual deficits
CPT/HCPCS: 36415; 84484; 93005; 99284

== ENCOUNTER 2024-03-19 21:44 | Emergency (ER) | payer OTHER, SELFPAY ==
[2024-03-19] MEDS ORDERED: HYDROCODONE/APAP 5/325 MG TAB ONE ×2 (22:29→22:44)
[2024-03-19] MEDS ORDERED: KETOROLAC 10 MG TAB ONE (22:29)
[2024-03-19] MEDS ORDERED: DIAZEPAM 5 MG TABLET ONE (22:30)
[2024-03-19] MEDS ORDERED: cloNIDine HCL 0.1 MG TAB ONE (22:47)
--- NOTE | 2024-03-20 00:07 | ER ---
Nurse's Notes [facility] Name: Geetha Khan Age: 48 yrs Sex: Female : 1975 Arrival Date: 03/19/2024 Time: 21:44 Bed 19 Private MD: Yonatan Rae Diagnosis: Acute Influenza A Presentation: 03/19 21:52 Chief complaint: EMS states: c/o left sided chest pain and sob, 12/25. Coronavirus me1 screen: Vaccine status: Patient reports being unvaccinated. Ebola Screen: No symptoms or risks identified at this time. Initial Sepsis Screen: Does the patient meet any 2 criteria? No. Patient's initial sepsis screen is negative. Does the patient have a suspected source of infection? No. Patient's initial sepsis screen is negative. Risk Assessment: Do you want to hurt yourself or someone else? Patient reports no desire to harm self or others. Onset of symptoms was March 19, 2024 at 21:00. 21:52 Method Of Arrival: EMS: [facility] [place] 21:52 Acuity: CORRINA 3 me1 Triage Assessment: 21:54 General: Appears uncomfortable, unkempt, well developed, well nourished, Behavior is me1 cooperative, appropriate for age, anxious, Reports. Pain: Complains of pain in chest Pain does not radiate. Pain currently is 10 out of 10 on a pain scale. Quality of pain is described as heavy, Pain began 1 hour ago. Is continuous. EENT: No signs and/or symptoms were reported regarding the EENT system. Neuro: Level of Consciousness is awake, alert, obeys commands, Oriented to person, place, time, situation, Appropriate for age. Cardiovascular: Patient's skin is warm and dry. Respiratory: Airway is patent Respiratory effort is even, unlabored, Respiratory pattern is regular, symmetrical. GI: No signs and/or symptoms were reported involving the gastrointestinal system. : Reports incontinence, at baseline. Derm: Skin is intact, is healthy with good turgor, Skin is pink, warm \T\ dry. Musculoskeletal: Range of motion: limited in left shoulder, left elbow, left wrist, left hip, left knee and left ankle. 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 - Infectious Disease History:: Denies. - Social history:: Smoking status: Patient reports the use of cigarette tobacco products, smokes one-half pack cigarettes per day. - Family history:: not pertinent. Screenin:56 [facility] ED Fall Risk Assessment (Adult) History of falling in the last 3 months, tx1 including since admission No falls in past 3 months (0 pts) Confusion or Disorientation No (0 pts) Intoxicated or Sedated No (0 pts) Impaired Gait Yes (1 pt) Mobility Assist Device Used Yes (1 pt) Altered Elimination Yes (1 pt) Score/Fall Risk Level 3 or more points = High Risk Maintained a safe environment, Hourly rounding (assess needs \T\ fall precautionary measures) done, Used ambulatory aids as needed (educated on \T\ assisted with). Abuse screen: Denies threats or abuse. Nutritional screening: No deficits noted. Tuberculosis screening: No symptoms or risk factors identified. Assessment: 21:56 General: See triage assessment. me1 Vital Signs: 21:52 Weight 56.7 kg; Height 5 ft. 2 in. ; Pain 10/10; me1 21:57 BP 164 / 122; Pulse 77; Resp 19; Temp 98.7; Pulse Ox 100% on R/A; me1 22:15 BP 179 / 125; Pulse 86; Resp 17; Pulse Ox 99% ; me1 23:00 BP 177 / 112; Pulse 84; Resp 22; Pulse Ox 99% on R/A; me1 23:30 BP 143 / 102; Pulse 85; Resp 23; Pulse Ox 97% on R/A; me1 23:44 Pain 4/10; me1 23:45 Pain 4/10; me1 23:45 Pain 4/10; me1 01/ 00:25 BP 117 / 76; Pulse 87; Resp 18; Pulse Ox 98% ; cp4 03/19 21:52 Body Mass Index 22.86 (56.70 kg, 157.48 cm) me1 03/19 21:52 Pain Scale: Adult me1 23:44 Pain Scale: Adult me1 23:45 Pain Scale: Adult me1 23:45 Pain Scale: Adult me1 [place] Coma Score: 06:49 Eye Response: spontaneous(4). Motor Response: obeys commands(6). Verbal Response: sp4 oriented(5). Total: 15. ED Course: 03/19 21:46 Patient arrived in ED. gm2 21:47 Yonatan Rae DO is Private Physician. gm2 21:48 Uriel Cannon MD is Attending Physician. sp4 21:52 Nohemy Clark, YANETH is Primary Nurse. me1 21:54 Triage completed. me1 21:54 Arm band placed on Patient placed in an exam room. me1 21:56 Patient has correct armband on for positive identification. Bed in low position. Call me1 light in reach. Side rails up X2. Provided Education on: POC. Verbalized understanding.. Client placed on continuous cardiac and pulse oximetry monitoring. NIBP monitoring applied. environmental monitoring specialist on. Pulse ox on. NIBP on. 21:56 No provider procedures requiring assistance completed. Patient maintains SpO2 me1 saturation greater than 95% on room air. 22:51 Flu Sent. me1 22:51 Flu and/or RSV swab sent to lab. me1 22:59 EKG done, by ED staff, reviewed by Uriel Cannon MD. oe 03/20 00:06 Yonatan Rae DO is Referral Physician. sp4 00:26 Patient did not have IV access during this emergency room visit. cp4 Administered Medications: 03/19 22:34 Drug: HYDROcodone-acetaminophen PO 5 mg-325 mg 1 tabs PO once Route: PO; me1 23:44 Follow up: Pain 4/10 Adult; Response: No adverse reaction; Pain is decreased me1 22:34 Drug: Diazepam PO 5 mg PO once Route: PO; me1 23:45 Follow up: Response: No adverse reaction; Anxiety decreased me1 22:34 Drug: Ketorolac PO 10 mg PO once Route: PO; me1 23:45 Follow up: Pain 4/10 Adult; Response: No adverse reaction; Pain is decreased me1 22:50 Drug: HYDROcodone-acetaminophen PO 5 mg-325 mg 1 tabs PO once Route: PO; me1 23:45 Follow up: Pain 4/10 Adult; Response: No adverse reaction; Pain is decreased me1 22:50 Drug: cloNIDine PO 0.1 mg PO once Route: PO; me1 23:45 Follow up: Response: No adverse reaction me1 Medication: 21:56 VIS not applicable for this client. me1 Outcome: 03/20 00:06 Discharge ordered by . sp4 00:26 Discharged to home via wheelchair, cp4 00:26 Condition: stable 00:26 Discharge instructions given to patient, family, Instructed on discharge instructions, follow up and referral plans. medication usage, Demonstrated understanding of instructions, follow-up care, medications, Prescriptions given X 3, 00:55 Patient left the ED. cp4 Signatures: Yoni Schreiber Sergey, MD MD sp4 Nohemy Clark, RN RN me1 Yasmeen Vasquez cp4 Rossi Muhammad 2
--- NOTE | 2024-03-20 00:07 | EDPHYS ---
Physician Documentation [facility] Name: Geetha Khan Age: 48 yrs Sex: Female : 1975 Arrival Date: 03/19/2024 Time: 21:44 Bed 19 Private MD: Yonatan Rae ED Physician Uriel Cannon HPI: 03/20 00:05 This 48 yrs old Female presents to ER via EMS with complaints of Chest Pain. sp4 06:49 48-year-old female presents with complaint of chest pain, anxiety, elevated blood sp4 pressure. Patient is well-known to me from prior visits. Patient has history of hemorrhagic CVA with residual left-sided hemiparesis. HOSPICE REGISTERED NURSE: 03/19 21:54 LMP N/A - control method, Not me1 Historical: - Allergies: 21:54 Aspirin; me1 21:54 CRANBERRY; me1 21:54 FISH PRODUCT DERIVATIVES; me1 21:54 GRAPEFRUIT; me1 21:54 SHELLFISH; me1 - PMHx: 21:54 Cerebrovascular accident; Chronic obstructive lung disease; Hypertensive disorder; me1 Myocardial infarction; Seizure; - PSHx: 21:54 None; me1 - Immunization history:: Adult Immunizations up to date. - Infectious Disease History:: Denies. - Social history:: Smoking status: Patient reports the use of cigarette tobacco products, smokes one-half pack cigarettes per day. - Family history:: not pertinent. ROS: 03/20 06:49 Constitutional: Negative for fever, chills, and weight loss, positive anxiety, positive sp4 chest pain, positive elevated blood pressure All other systems are negative, Exam: 06:49 Constitutional: This is a well developed, well nourished patient who is awake, alert, sp4 and in no acute distress. Head/Face: Normocephalic, atraumatic. Eyes: Pupils equal round and reactive to light, extra-ocular motions intact. Lids and lashes normal. Conjunctiva and sclera are not injected. Cornea within normal limits. Periorbital areas with no swelling, redness, or edema. ENT: Nares patent. No nasal discharge, no septal abnormalities noted. Tympanic membranes are normal and external auditory canals are clear. Oropharynx with no redness, swelling, or masses, exudates, or evidence of obstruction, uvula midline. Mucous membranes moist. Neck: Trachea midline, no thyromegaly or masses palpated, and no cervical lymphadenopathy. Supple, full range of motion without nuchal rigidity, or vertebral point tenderness. Chest/axilla: Normal chest wall appearance and motion. Nontender with no deformity. No lesions are appreciated. Cardiovascular: Regular rate and rhythm with a normal S1 and S2. No gallops, murmurs, or rubs. Normal PMI, no JVD. No pulse deficits. Respiratory: Lungs have equal breath sounds bilaterally, clear to auscultation and percussion. No rales, rhonchi or wheezes noted. No increased work of breathing, no retractions or nasal flaring. Abdomen/GI: Soft, with normal bowel sounds. No distension or tympany. No guarding or rebound. No evidence of tenderness throughout. Back: No spinal tenderness. No costovertebral tenderness. Skin: Warm, dry with normal turgor. Normal color with no rashes, no lesions, and no evidence of cellulitis. MS/ Extremity: Pulses equal, no cyanosis. Neurovascular intact. Full, normal range of motion. Neuro: Awake and alert, GCS 15, oriented to person, place, time, and situation. Longstanding left-sided hemiparesis secondary to prior CVA. Psych: Awake, alert, with orientation to person, place and time. Behavior, mood, and affect are within normal limits 06:49 ECG was reviewed by the Attending Physician. EKG at 2240 normal sinus rhythm with LVH. Rate 85 Vital Signs: 03/19 21:52 Weight 56.7 kg; Height 5 ft. 2 in. ; Pain 10/10; me1 21:57 BP 164 / 122; Pulse 77; Resp 19; Temp 98.7; Pulse Ox 100% on R/A; me1 22:15 BP 179 / 125; Pulse 86; Resp 17; Pulse Ox 99% ; me1 23:00 BP 177 / 112; Pulse 84; Resp 22; Pulse Ox 99% on R/A; me1 23:30 BP 143 / 102; Pulse 85; Resp 23; Pulse Ox 97% on R/A; me1 23:44 Pain 4/10; me1 23:45 Pain 4/10; me1 23:45 Pain 4/10; me1 03/20 00:25 BP 117 / 76; Pulse 87; Resp 18; Pulse Ox 98% ; cp4 03/19 21:52 Body Mass Index 22.86 (56.70 kg, 157.48 cm) oh1 03/19 21:52 Pain Scale: Adult me1 23:44 Pain Scale: Adult me1 23:45 Pain Scale: Adult me1 23:45 Pain Scale: Adult me1 [place] Coma Score: 06:49 Eye Response: spontaneous(4). Motor Response: obeys commands(6). Verbal Response: sp4 oriented(5). Total: 15. MDM: 03/19 21:49 Medical Screening Exam initiated sp4 03/20 06:53 Differential diagnosis: acute pericarditis, anxiety, chest wall pain, congestive heart sp4 failure Cholelithiasis. HEART Score: History: Slightly Suspicious (0), ECG: Non specific repolarization disturbance / LBTB / PM (1), Age: > 45 and < 65 years (1), Risk Factors: 1 or 2 risk factors (1), Troponin: < or = 1 x Normal Limit (0), Total Score = 3. Data reviewed: vital signs, nurses notes, EMS record, lab test result(s), Flu: positive. ED course: Positive for influenza A. Will provide Tamiflu and symptomatic medications.. 03/19 22:33 Order name: Flu; Complete Time: 00:02 oh1 03/19 21:48 Order name: EKG - Nurse/Tech; Complete Time: 23:59 sp4 EC/02 22:40 Rate is 85 beats/min. Rhythm is regular, Normal Sinus Rhythm. QRS [place] is Normal. LA sp4 interval is normal. QRS interval is normal. QT interval is normal. No Q waves. T waves are Normal. No ST changes noted. Clinical impression: No evidence of ischemia. Interpreted by me. Reviewed by me. Administered Medications: 22:34 Drug: HYDROcodone-acetaminophen PO 5 mg-325 mg 1 tabs PO once Route: PO; oh1 23:44 Follow up: Pain 4/10 Adult; Response: No adverse reaction; Pain is decreased me1 22:34 Drug: Diazepam PO 5 mg PO once Route: PO; me1 23:45 Follow up: Response: No adverse reaction; Anxiety decreased oh1 22:34 Drug: Ketorolac PO 10 mg PO once Route: PO; me1 23:45 Follow up: Pain 4/10 Adult; Response: No adverse reaction; Pain is decreased me1 22:50 Drug: HYDROcodone-acetaminophen PO 5 mg-325 mg 1 tabs PO once Route: PO; me1 23:45 Follow up: Pain 4/10 Adult; Response: No adverse reaction; Pain is decreased me1 22:50 Drug: cloNIDine PO 0.1 mg PO once Route: PO; me1 23:45 Follow up: Response: No adverse reaction me1 Disposition: 03/20 06:53 Chart complete. sp4 Disposition Summary: 03/20/24 00:06 Discharge Ordered Notes: Location: Home sp4 Problem: new sp4 Symptoms: have improved sp4 Condition: Stable sp4 Diagnosis - Acute Influenza A sp4 Followup: sp4 - With: Yonatan Rae DO - When: 7 - 10 days - Reason: Recheck today's complaints Discharge Instructions: - Discharge Summary Sheet sp4 - Influenza, Adult sp4 Forms: - Patient Portal Instructions sp4 Prescriptions: - Ibuprofen 600 mg Oral tablet - take 1 tablet ORAL route every 6 hours As needed PRN fever; 30 tablet; Refills: sp4 0, Product Selection Permitted - Tamiflu 75 mg Oral capsule - take 1 tablet ORAL route every 12 hours for 5 days; 10 tablet; Refills: 0, sp4 Product Selection Permitted - ondansetron 8 mg Oral Tablet,disintegrating - take 1 tablet ORAL route every 8 hours PRN nausea; 30 tablet; Refills: 0, sp4 Product Selection Permitted Signatures: Dispatcher [employer] Uriel Walter MD MD sp4 Nohemy Clark, RN RN me1
[2024-03-20 08:28] VITALS: TEMP 98.7
[2024-03-20 08:37] VITALS: BP 117/76; O2SAT 98
--- NOTE | 2024-03-20 12:39 | EKG ---
Test Date: 2024-03-19 Test Time: 22:40:23 Railroad Construction Director: SOLO MEASUREMENT RESULTS: Intervals: Rate: 85 IL: 158 QRSD: 78 QT: 380 QTc: 452 [place]: P: 67 IL: 158 QRS: 16 T: 121 INTERPRETIVE STATEMENTS: Normal sinus rhythm Left ventricular hypertrophy with repolarization abnormality Abnormal ECG Compared to ECG 03/13/2024 22:41:55 No significant changes Electronically Signed On 03-20-24 12:39:06 DUBBING MACHINE OPERATOR by Alan Garay
== END 2024-03-20 00:55 | disposition home or self-care (01) ==
LOC: ER 21:44
DX: J10.1 Influenza due to other identified influenza virus with other respiratory manifestations (principal); F17.210 Nicotine dependence, cigarettes, uncomplicated
CPT/HCPCS: 87804; 93005; 99285

== ENCOUNTER 2024-03-20 21:00 | Emergency (ER) | payer OTHER, SELFPAY ==
[2024-03-20] MEDS ORDERED: HYDROCODONE/APAP 5/325 MG TAB ONE (21:08)
[2024-03-20] MEDS ORDERED: IBUPROFEN 400 MG TAB ONE (21:08)
[2024-03-20] MEDS ORDERED: PROMETHAZINE 25 MG TABLET ONE (21:08)
[2024-03-20] MEDS ORDERED: GUAIFENESIN/DM 5 ML UCUP ONE (21:08)
--- NOTE | 2024-03-20 22:00 | ER ---
Nurse's Notes [facility] Name: Geetha hKan Age: 48 yrs Sex: Female : 1975 Arrival Date: 03/20/2024 Time: 21:00 Bed IW1 Private MD: Diagnosis: Influenza A , acute Cough and congestion Presentation: 03/20 21:02 Chief complaint: EMS states: TONED OUT FOR PT C/O CHEST PAIN AND CONGESTION. dd2 Coronavirus screen: At this time, the client does not indicate any symptoms associated with coronavirus-19. Ebola Screen: No symptoms or risks identified at this time. Initial Sepsis Screen: Does the patient meet any 2 criteria? No. Patient's initial sepsis screen is negative. Does the patient have a suspected source of infection? No. Patient's initial sepsis screen is negative. Risk Assessment: Do you want to hurt yourself or someone else? Patient reports no desire to harm self or others. Onset of symptoms was March 20, 2024. 21:02 Method Of Arrival: EMS: [facility] dd2 21:02 Acuity: CORRINA 4 dd2 Triage Assessment: 21:08 General: Appears in no apparent distress. Behavior is calm, cooperative, appropriate dd2 for age. Pain: Complains of pain in chest Pain does not radiate. Pain currently is 10 out of 10 on a pain scale. EENT: No deficits noted. No signs and/or symptoms were reported regarding the EENT system. Neuro: No deficits noted. [place] Agitation-Sedation Scale (RASS):. Cardiovascular: Reports chest pain, Heart tones S1 S2 present Patient's skin is warm and dry. Respiratory: Reports cough that is non-productive, Airway is patent Respiratory effort is even, unlabored, Respiratory pattern is regular, symmetrical, Breath sounds are clear bilaterally. GI: No deficits noted. No signs and/or symptoms were reported involving the gastrointestinal system. : No deficits noted. No signs and/or symptoms were reported regarding the genitourinary system. Derm: No deficits noted. No signs and/or symptoms reported regarding the dermatologic system. Musculoskeletal: No signs and/or symptoms reported regarding the musculoskeletal system. DEPUTY REGISTER OF DEEDS: 21:07 LMP N/A - Irregular menses, Not dd2 Historical: - Allergies: 21:07 Aspirin; dd2 21:07 CRANBERRY; dd2 21:07 FISH PRODUCT DERIVATIVES; dd2 21:07 GRAPEFRUIT; dd2 21:07 SHELLFISH; dd2 - PMHx: 21:07 Cerebrovascular accident; Chronic obstructive lung disease; Hypertensive disorder; dd2 Myocardial infarction; Seizure; - PSHx: 21:07 None; dd2 - Immunization history:: Adult Immunizations up to date. - Infectious Disease History:: Denies. - Social history:: Smoking status: Patient denies any tobacco usage or history of. - Family history:: not pertinent. Screenin:33 [facility] ED Fall Risk Assessment (Adult) History of falling in the last 3 months, dd2 including since admission Yes- single mechanical fall (1 pt) Confusion or Disorientation No (0 pts) Intoxicated or Sedated No (0 pts) Impaired Gait Yes (1 pt) Mobility Assist Device Used Yes (1 pt) Altered Elimination No (0 pt) Score/Fall Risk Level 3 or more points = High Risk Oriented to surroundings, Maintained a safe environment, Educated pt \T\ family on fall prevention, incl call for assistance when getting out of bed, Assessed \T\ reinforced patient's understanding of fall precautions, Hourly rounding (assess needs \T\ fall precautionary measures) done. Abuse screen: Denies threats or abuse. Nutritional screening: No deficits noted. Tuberculosis screening: No symptoms or risk factors identified. Assessment: 21:33 Reassessment: SEE TRIAGE ASSESSMENT FOR FULL ASSESSMENT. dd2 Vital Signs: 21:02 BP 142 / 50; Pulse 77; Resp 16; Temp 98.5; Pulse Ox 98% on R/A; Pain 10/10; dd2 22:07 BP 146 / 59; Pulse 75; Resp 16; Temp 98.2; Pulse Ox 98% on R/A; dd2 21:02 Pain Scale: Adult dd2 [place] Coma Score: 21:33 Eye Response: spontaneous(4). Motor Response: obeys commands(6). Verbal Response: dd2 oriented(5). Total: 15. 03/21 01:30 Eye Response: spontaneous(4). Motor Response: obeys commands(6). Verbal Response: sp4 oriented(5). Total: 15. ED Course: 03/20 21:01 Patient arrived in ED. dd2 21:01 Uriel Cannon MD is Attending Physician. sp4 21:07 Triage completed. dd2 21: Arm band placed on right wrist. Patient placed in waiting room, in a wheelchair. dd2 21:29 MAGGIE GIBSON, RN is Primary Nurse. dd2 21:33 Patient has correct armband on for positive identification. Provided Education on: D/C dd2 EDUCATION. Pulse ox on. Warm blanket given. 21:33 No provider procedures requiring assistance completed. Patient did not have IV access dd2 during this emergency room visit. Patient maintains SpO2 saturation greater than 95% on room air. Administered Medications: 21:30 Drug: HYDROcodone-acetaminophen PO 5 mg-325 mg 1 tabs PO once Route: PO; dd2 22:00 Follow up: Response: No adverse reaction dd2 21:30 Drug: Ibuprofen PO 800 mg PO once Route: PO; dd2 22:00 Follow up: Response: No adverse reaction dd2 21:30 Drug: Dextromethorphan-Guaifenesin PO Liquid 10 mg-100 mg/5 mL 10 ml PO once Route: PO; dd2 22:00 Follow up: Response: No adverse reaction dd2 21:30 Drug: Promethazine PO 25 mg PO once Route: PO; dd2 22:00 Follow up: Response: No adverse reaction dd2 Medication: 21:33 VIS not applicable for this client. dd2 Outcome: 22:00 Discharge ordered by . sp4 : Discharged to home via wheelchair, with significant other, dd2 22: Condition: stable 22:07 Discharge instructions given to patient, Instructed on discharge instructions, follow up and referral plans. medication usage, Demonstrated understanding of instructions, follow-up care, medications, Prescriptions given X 2, 22:11 Patient left the ED. dd2 Signatures: Uriel Cannon MD MD sp4 MAGGIE GIBSON, RN RN dd2
--- NOTE | 2024-03-20 22:00 | EDPHYS ---
[facility] Name: Geetha Khan Age: 48 yrs Sex: Female : 1975 Arrival Date: 03/20/2024 Time: 21:00 Bed IW1 Private MD: ED Physician Uriel Cannon HPI: 03/20 21:02 This 48 yrs old Female presents to ER via Unassigned with complaints of Chest sp4 Pain, Congestion. 03/21 01:30 48-year-old female with past medical history of prior hemorrhagic CVA with left-sided sp4 hemiparesis presents with EMS for complaint of cough congestion chest discomfort and shortness of breath. Yesterday patient was here and was diagnosed with influenza A. . 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 - Infectious Disease History:: Denies. - Social history:: Smoking status: Patient denies any tobacco usage or history of. - Family history:: not pertinent. ROS: 03/21 01:30 Constitutional: Negative for fever, chills, and weight loss, positive shortness of sp4 breath positive chest discomfort positive cough positive congestion Eyes: Negative for injury, pain, redness, and discharge, All other systems are negative, Exam: 01:30 Constitutional: This is a well developed, well nourished patient who is awake, alert, sp4 and in no acute distress. There is longstanding left-sided hemiparesis from prior CVA. Head/Face: Normocephalic, atraumatic. Eyes: Pupils equal round and reactive to light, extra-ocular motions intact. Lids and lashes normal. Conjunctiva and sclera are not injected. Cornea within normal limits. Periorbital areas with no swelling, redness, or edema. ENT: Nares patent. No nasal discharge, no septal abnormalities noted. Tympanic membranes are normal and external auditory canals are clear. Oropharynx with no redness, swelling, or masses, exudates, or evidence of obstruction, uvula midline. Mucous membranes moist. Neck: Trachea midline, no thyromegaly or masses palpated, and no cervical lymphadenopathy. Supple, full range of motion without nuchal rigidity, or vertebral point tenderness. Chest/axilla: Normal chest wall appearance and motion. Nontender with no deformity. No lesions are appreciated. Cardiovascular: Regular rate and rhythm with a normal S1 and S2. No gallops, murmurs, or rubs. Normal PMI, no JVD. No pulse deficits. Respiratory: Lungs have equal breath sounds bilaterally, clear to auscultation and percussion. No rales, rhonchi or wheezes noted. No increased work of breathing, no retractions or nasal flaring. Abdomen/GI: Soft, with normal bowel sounds. No distension or tympany. No guarding or rebound. No evidence of tenderness throughout. Back: No spinal tenderness. No costovertebral tenderness. Skin: Warm, dry with normal turgor. Normal color with no rashes, no lesions, and no evidence of cellulitis. MS/ Extremity: Pulses equal, no cyanosis. There are left-sided contractures from prior hemiparesis. No changes from prior exam Neuro: Awake and alert, GCS 15, oriented to person, place, time, and situation. There is chronic left-sided hemiparesis unchanged from prior. Psych: Awake, alert, with orientation to person, place and time. Behavior, mood, and affect are within normal limits Vital Signs: 03/20 21:02 BP 142 / 50; Pulse 77; Resp 16; Temp 98.5; Pulse Ox 98% on R/A; Pain 10/10; dd2 22:07 BP 146 / 59; Pulse 75; Resp 16; Temp 98.2; Pulse Ox 98% on R/A; dd2 21:02 Pain Scale: Adult dd2 [place] Coma Score: 21:33 Eye Response: spontaneous(4). Motor Response: obeys commands(6). Verbal Response: dd2 oriented(5). Total: 15. 03/21 01:30 Eye Response: spontaneous(4). Motor Response: obeys commands(6). Verbal Response: sp4 oriented(5). Total: 15. MDM: 03/20 22:00 Medical Screening Exam initiated sp4 03/21 01:33 Differential diagnosis: anxiety, chest wall pain, pleurisy, pneumonia. Data reviewed: sp4 vital signs, nurses notes, EMS record, old medical records. ED course: Patient was seen yesterday for influenza A. Patient was prescribed Tamiflu and ondansetron. Today we will provide prescription for albuterol with nebulizer. Otherwise stable for discharge home no respiratory compromise.. Administered Medications: 03/20 21:30 Drug: HYDROcodone-acetaminophen PO 5 mg-325 mg 1 tabs PO once Route: PO; dd2 22:00 Follow up: Response: No adverse reaction dd2 21:30 Drug: Ibuprofen PO 800 mg PO once Route: PO; dd2 22:00 Follow up: Response: No adverse reaction dd2 21:30 Drug: Dextromethorphan-Guaifenesin PO Liquid 10 mg-100 mg/5 mL 10 ml PO once Route: PO; dd2 22:00 Follow up: Response: No adverse reaction dd2 21:30 Drug: Promethazine PO 25 mg PO once Route: PO; dd2 22:00 Follow up: Response: No adverse reaction dd2 Disposition: 03/21 01:34 Chart complete. sp4 Disposition Summary: 03/20/24 22:00 Discharge Ordered Notes: Location: Home sp4 Problem: new sp4 Symptoms: have improved sp4 Condition: Stable sp4 Diagnosis - Influenza A , acute Cough and congestion sp4 Followup: sp4 - With: Private Physician - When: 7 - 10 days - Reason: Recheck today's complaints Discharge Instructions: - Discharge Summary Sheet sp4 - Influenza, Adult, [id number] sp4 Forms: - Patient Portal Instructions sp4 Prescriptions: - Nebulizer with Adult mask - 0 Dispense One nebulizer, use as directed with Albuterol; ; Refills: 0, sp4 Product Selection Permitted - Albuterol Sulfate 2.5 mg /3 mL (0.083 %) Inhalation Solution for Nebulization - inhale 1 unit NEBULIZATION route every 4 hours As needed Dispense 50 vials, sp4 use with Nebulizer PRN cough or wheezing; 50 unit; Refills: 0, Product Selection Permitted Signatures: Uriel Cannon MD MD sp4 PAIGE, MAGGIE, RN RN dd2
[2024-03-20 22:30] VITALS: O2SAT 98
[2024-03-20 22:33] VITALS: BP 146/59; TEMP 98.2
== END 2024-03-20 22:11 | disposition home or self-care (01) ==
LOC: ER 21:00
DX: J10.1 Influenza due to other identified influenza virus with other respiratory manifestations (principal); R09.89 Other specified symptoms and signs involving the circulatory and respiratory systems
CPT/HCPCS: 99284; Q0169

== ENCOUNTER 2024-03-29 10:12 | Emergency (ER) | payer OTHER, SELFPAY ==
[2024-03-29] MEDS ORDERED: HYDROCODONE/APAP 5/325 MG TAB ONE (10:57)
[2024-03-29] MEDS ORDERED: IBUPROFEN 400 MG TAB ONE (10:57)
--- NOTE | 2024-03-29 11:56 | RAD REPORT ---
EXAM: CT Head Brain Wo Cont HISTORY: HEADACHE COMPARISON: 12/26/2023 TECHNIQUE: Multiple contiguous axial images were obtained for a CT of the brain without contrast. Sag ittal and coronal reformats were performed. One or more of the following dose reduction techniques were used: Automated exposure control, adjus tment of the mA and kV according to patient size, and iterative reconstruction. Unless otherwise specified, incidental findings do not require dedicated imaging follow-up. FINDINGS: No evidence of hydrocephalus, intracranial hemorrhage, or extra-axial fluid collection. Moderate to advanced periventricular and deep white matter chronic microvascular ischemic changes, w ith asymmetric hypodensity and volume loss along the right centrum semiovale bowel, opercular and to lesser extent parietal subcortical white matter on the right, and the subinsular region, stable. E xtraocular dilation of the right lateral ventricle. Asymmetric mineralization of the right nucleus. The calvarium is intact. The visualized paranasal sinuses and mastoid air cells are essentially clear . IMPRESSION: No acute intracranial process. Stable findings with asymmetric white matter hypodensities and volume loss centered on the right cent rum semiovale and adjacent subcortical white matter, findings which suggest sequelae of remote ischemia.
--- NOTE | 2024-03-29 12:09 | ER ---
Nurse's Notes [facility] Name: Geetha Khan Age: 48 yrs Sex: Female : 1975 Arrival Date: 03/29/2024 Time: 10:12 Bed 19 Private MD: Diagnosis: Headache Presentation: 03/29 10:09 Chief complaint: EMS states: COMPLAINED OF HEADACHE, FLU X 2 WEEKS AGO, CP. Coronavirus db screen: Client denies travel out of the [place] in the last 14 days. At this time, the client does not indicate any symptoms associated with coronavirus-19. Ebola Screen: Patient negative for fever greater than or equal to 101.5 degrees Fahrenheit, and additional compatible Ebola Virus Disease symptoms Patient denies exposure to infectious person. Patient denies travel to an Ebola-affected area in the 21 days before illness onset. No symptoms or risks identified at this time. Initial Sepsis Screen: Does the patient meet any 2 criteria? No. Patient's initial sepsis screen is negative. Does the patient have a suspected source of infection? No. Patient's initial sepsis screen is negative. Risk Assessment: Do you want to hurt yourself or someone else? Patient reports no desire to harm self or others. Onset of symptoms was March 29, 2024. 10:09 Method Of Arrival: EMS: [facility] db 10:09 Acuity: CORRINA 3 db Triage Assessment: 10:09 General: Appears in no apparent distress. comfortable, Behavior is calm, cooperative. db Pain: Complains of pain in forehead and top of head. Neuro: Level of Consciousness is awake, alert, obeys commands, Oriented to person, place, time. 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 - Infectious Disease History:: Denies. - Family history:: not pertinent. - Social history:: Smoking status: Patient denies any tobacco usage or history of. - Hospitalizations: : No recent hospitalization is reported. Screenin:05 [facility] ED Fall Risk Assessment (Adult) History of falling in the last 3 months, db including since admission No falls in past 3 months (0 pts) Confusion or Disorientation No (0 pts) Intoxicated or Sedated No (0 pts) Impaired Gait No (0 pts) Mobility Assist Device Used No (0 pt) Altered Elimination No (0 pt) Score/Fall Risk Level 0 - 2 = Low Risk Oriented to surroundings, Maintained a safe environment. Abuse screen: Denies threats or abuse. Denies injuries from another. Nutritional screening: No deficits noted. Tuberculosis screening: No symptoms or risk factors identified. Assessment: 10:35 Reassessment: Patient appears in no apparent distress at this time. Patient and/or db family updated on plan of care and expected duration. Pain level reassessed. Patient is alert, oriented x 3, equal unlabored respirations, skin warm/dry/pink. PATIENT PROVIDED SANDWICH AND FRUIT CUP AND PUDDING. General: Appears in no apparent distress. comfortable, Behavior is calm, cooperative. Neuro: Level of Consciousness is awake, alert, obeys commands, Oriented to person, place, time, situation. Cardiovascular: Reports chest pain. Respiratory: Airway is patent Respiratory effort is even, unlabored, Respiratory pattern is regular, symmetrical. Vital Signs: 10:09 BP 123 / 86; Pulse 73; Resp 16; Temp 97.8; Pulse Ox 100% on R/A; Weight 56.7 kg; Height db 5 ft. 2 in. ; 11:30 BP 125 / 80; Pulse 70; Resp 19; Pulse Ox 96% ; db 12:00 BP 137 / 93; Pulse 71; Resp 18; Pulse Ox 98% ; me1 10:09 Body Mass Index 22.86 (56.70 kg, 157.48 cm) db [place] Coma Score: 12:08 Eye Response: spontaneous(4). Motor Response: obeys commands(6). Verbal Response: rn oriented(5). Total: 15. ED Course: 10:09 Arm band placed on Patient placed in an exam room. db 10:17 Patient arrived in ED. iw 10:18 Gene Medrano MD is Attending Physician. rn 10:39 Yeimy Martel, YANETH is Primary Nurse. db 10:46 Triage completed. db 10:53 CT Head Brain wo Cont In Process Unspecified. EDMS 12:00 Patient has correct armband on for positive identification. Bed in low position. Call me1 light in reach. Side rails up X2. Provided Education on: POC. Verbalized understanding,. Client placed on continuous cardiac and pulse oximetry monitoring. NIBP monitoring applied. pvc monitor on. Pulse ox on. NIBP on. 12:27 Nohemy Clark, RN is Primary Nurse. me1 12:36 No provider procedures requiring assistance completed. Patient did not have IV access me1 during this emergency room visit. Administered Medications: 11:00 Drug: Ibuprofen PO 800 mg PO once Route: PO; db 12:28 Follow up: Response: No adverse reaction; Pain is decreased me1 11:00 Drug: HYDROcodone-acetaminophen PO 5 mg-325 mg 1 tabs PO once Route: PO; db 12:28 Follow up: Response: No adverse reaction me1 12:28 Follow up: Response: Pain is decreased me1 Medication: 12:34 VIS not applicable for this client. me1 Outcome: 12:09 Discharge ordered by . rn 12:36 Discharged to home via wheelchair, me1 12:36 Condition: stable 12:36 Discharge instructions given to patient, Instructed on discharge instructions, follow up and referral plans. Demonstrated understanding of instructions, follow-up care, 12:36 Patient left the ED. me1 Signatures: Dispatcher [employer] Iqra Antony, Gene Watts RN, MD MD rn Benton, Danielle, RN RN db Nohemy Clark, RN RN me1
--- NOTE | 2024-03-29 12:10 | EDPHYS ---
Physician Documentation [facility] Name: Geetha Khan Age: 48 yrs Sex: Female : 1975 Arrival Date: 03/29/2024 Time: 10:12 Bed 19 Private MD: ED Physician Gene Medrano HPI: 03/29 10:31 This 48 yrs old Female presents to ER via Unassigned with complaints of headache. rn 10:31 The patient complains of pain to the top of head and forehead. The patient describes rn the headache as aching. Onset: The symptoms/episode began/occurred 2 week(s) ago. Headache History: The patient has had previous headaches and this one is similar to previous episodes. The patient has experienced similar episodes in the past. Patient reports headache, frontal and top of head, intermittent for 2 weeks. Had flu 2 weeks ago. States headache came on with the flu and has not gone away. Reports history of headaches and feels similar. Also reports history of hemorrhagic CVA. No neck stiffness. No fever or chills. No vision changes. No focal neurological deficits.. 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 - Infectious Disease History:: Denies. - Family history:: not pertinent. - Social history:: Smoking status: Patient denies any tobacco usage or history of. - Hospitalizations: : No recent hospitalization is reported. ROS: 10:31 Constitutional: Negative for fever, chills, and weight loss, Neck: Negative for injury, rn pain, and swelling, Cardiovascular: Negative for chest pain, palpitations, and edema, Respiratory: Negative for shortness of breath, cough, wheezing, and pleuritic chest pain, Abdomen/GI: Negative for abdominal pain, vomiting, diarrhea, and constipation, Back: Negative for injury and pain, MS/Extremity: Negative for injury and deformity, Skin: Negative for injury, rash, and discoloration, Neuro: Negative for weakness, numbness, tingling, and seizure, Exam: 10:31 Constitutional: This is a well developed, well nourished patient who is awake, alert, rn and in no acute distress. Head/Face: Normocephalic, atraumatic. Neck: No meningismus Cardiovascular: Regular rate and rhythm. No pulse deficits. Respiratory: No increased work of breathing, no retractions or nasal flaring. Neuro: Awake and alert, GCS 15, oriented to person, place, time, and situation. Vital Signs: 10:09 BP 123 / 86; Pulse 73; Resp 16; Temp 97.8; Pulse Ox 100% on R/A; Weight 56.7 kg; Height db 5 ft. 2 in. ; 11:30 BP 125 / 80; Pulse 70; Resp 19; Pulse Ox 96% ; db 12:00 BP 137 / 93; Pulse 71; Resp 18; Pulse Ox 98% ; me1 10:09 Body Mass Index 22.86 (56.70 kg, 157.48 cm) db [place] Coma Score: 12:08 Eye Response: spontaneous(4). Motor Response: obeys commands(6). Verbal Response: rn oriented(5). Total: 15. MDM: 10:18 Medical Screening Exam initiated rn 12:08 Differential diagnosis: intracerebral hemorrhage, migraine, neoplasm, tension headache, rn vasomotor headache. Data reviewed: vital signs, nurses notes, radiologic studies, CT scan, and as a result, I will discharge patient. Counseling: I had a detailed discussion with the patient and/or guardian regarding the historical points, exam findings, and any diagnostic results supporting the discharge/admit diagnosis, radiology results, the need for outpatient follow up, to return to the emergency department if symptoms worsen or persist or if there are any questions or concerns that arise at home. Special discussion: I discussed with the patient/guardian in detail that at this point there is no indication for admission to the hospital. It is understood, however, that if the symptoms persist or worsen the patient needs to return immediately for re-evaluation. 03/29 10:18 Order name: CT Head Brain wo Cont; Complete Time: 12:08 rn Administered Medications: 11:00 Drug: Ibuprofen PO 800 mg PO once Route: PO; db 12:28 Follow up: Response: No adverse reaction; Pain is decreased me1 11:00 Drug: HYDROcodone-acetaminophen PO 5 mg-325 mg 1 tabs PO once Route: PO; db 12:28 Follow up: Response: No adverse reaction me1 12:28 Follow up: Response: Pain is decreased me1 Disposition Summary: 03/29/24 12:09 Discharge Ordered Notes: Location: Home rn Problem: new rn Symptoms: have improved rn Condition: Stable rn Diagnosis - Headache rn Followup: rn - With: Private Physician - When: As needed - Reason: Recheck today's complaints, Re-evaluation by your physician Discharge Instructions: - Discharge Summary Sheet rn - General Headache Without Cause rn Forms: - Medication Reconciliation Form rn - Antibiotic rn occupational - Prescription Opioid Use rn - Patient Portal Instructions rn - Leadership Thank You Letter rn Signatures: Dispatcher [employer] Gene Simon MD MD rn Benton, Danielle, RN RN db Eddleman, Michelle RN me1
[2024-03-31 16:03] VITALS: BP 137/93; O2SAT 98
== END 2024-03-29 12:36 | disposition home or self-care (01) ==
LOC: ER 10:12
DX: R51.9 Headache, unspecified (principal); I10 Essential (primary) hypertension; I25.2 Old myocardial infarction; Z86.73 Personal history of transient ischemic attack (TIA), and cerebral infarction without residual deficits; Z88.8 Allergy status to other drugs, medicaments and biological substances; Z91.013 Allergy to seafood; Z91.018 Allergy to other foods
CPT/HCPCS: 70450; 99284

== ENCOUNTER 2024-03-31 10:20 | Emergency (ER) | payer OTHER, SELFPAY ==
[2024-03-31] MEDS ORDERED: METHYLPREDNISOLONE 125 MG INJ ONE (10:49)
[2024-03-31] MEDS ORDERED: LEVALBUTEROL 1.25 MG/3 ML NEB ONE (10:49)
[2024-03-31] MEDS ORDERED: lisinopriL 20 MG TAB ONE (10:49)
[2024-03-31] MEDS ORDERED: IPRATROPIUM BROM 0.5MG/2.5ML ONE (10:49)
[2024-03-31] MEDS ORDERED: AMLODIPINE 5 MG TAB ONE (10:49)
[2024-03-31] MEDS ORDERED: METOPROLOL XL 50 MG TAB PO ONE (10:49)
[2024-03-31] MEDS ORDERED: NA CHLORIDE 0.9% 500 ML ONE (10:50)
[2024-03-31 11:33] LABS: Absolute Basophils 0.1 K/uL (0-0.5); Absolute Eosinophils 0.2 K/uL (0-0.5); Absolute Lymphocytes (CBC) 1.4 K/uL (0.7-4.9); Absolute Monocytes 0.4 K/uL (0.1-1.3); Absolute Neutrophil 3.6 K/uL (1.8-8.0); Basophils % 1.2 % (0-1.3); Eosinophils % 2.8 % (0-4.4); Hematocrit 34.9 % (36.0-45.0); Hemoglobin 11.8 g/dL (12.0-15.0); Lymphocytes % 25.2 % (15.3-44.8); MCH 33.4 pg (27.0-35.0); MCHC 33.9 g/dL (32.0-36.0); MCV 98.7 fL (80-100); MPV 6.1 fL (7.6-11.3); Monocytes % 7.3 % (3.3-12.3); Neutrophils % 63.5 % (41.7-73.7); Nucleated Red Blood Cells % 0.6 % (0-0); Platelets 414 thou/uL (152-406); RBC Red Blood Cell Count 3.54 M/uL (3.86-4.86); Red Cell Distribution Width 12.5 % (12.1-15.2)
[2024-03-31 12:04] LABS: ALT/SGPT 18 U/L (13-56); AST/SGOT 17 U/L (15-37); Albumin/Globulin Ratio 0.8 (1.1-1.8); Alkaline Phosphatase 216 U/L (45-117); Anion Gap 11.1 mEq/L (5.0-15.0); BUN Blood Urea Nitrogen 18 mg/dL (7-18); Bicarbonate 23 mEq/L (21-32); Bilirubin Direct 0.2 mg/dL (0-0.2); Bilirubin Indirect, Calculated 0.1 mg/dL (0.2-0.8); Bilirubin Total 0.3 mg/dL (0.2-1.0); Globulin 3.9 g/dL (2.3-3.5); Glomerular Filtration Rate 50 ml/min (=/>90); Glucose Level 71 mg/dL (74-106); Magnesium 1.6 mg/dL (1.6-2.4); NT PRO-BNP 4075 pg/mL (<125); Potassium 4.1 mEq/L (3.5-5.1); Protein, Total 6.9 g/dL (6.4-8.2); Sodium Level 137 mEq/L (136-145); Troponin High Sensitivity 41.5 pg/mL (<58.9)
[2024-03-31 12:12] LABS: PT Prothrombin Time 10.3 SECONDS (9.4-12.5); Protime INR 0.98
--- NOTE | 2024-03-31 12:20 | RAD REPORT ---
EXAMINATION: ONE VIEW CHEST XR CLINICAL INDICATION: CHEST PAIN TECHNIQUE: Frontal chest projection is submitted. Examination is limited by patient positioning and t echnique. COMPARISON: 03/10/2024 FINDINGS: The lungs are well inflated and clear. The heart is upper limit of normal in size. No displaced fract ures identified. IMPRESSION: No acute intrathoracic abnormalities.
[2024-03-31] MEDS ORDERED: Magnesium Sulfate 2gm IVPB 2 G/50 ML BAG IV ONE (12:36)
[2024-03-31] MEDS ORDERED: CALCIUM GLUCONATE 1 GM IVPB 2 GM/100 ML BAG IV ONE (12:36)
[2024-03-31] MEDS ORDERED: CALCIUM CARBONATE CHEW 500MG TAB ONE (13:36)
--- NOTE | 2024-03-31 14:07 | ER ---
Nurse's Notes [facility] Name: Geetha Khan Age: 48 yrs Sex: Female : 1975 Arrival Date: 03/31/2024 Time: 10:20 Bed 20 Private MD: Diagnosis: COPD/ Chronic obstructive pulmonary disease with (acute) exacerbation;Essential (primary) hypertension;Tobacco abuse counseling;Tobacco use;Chest pain, unspecified;Hypocalcemia Presentation: 03/31 10:28 Chief complaint: EMS states: Left sided chest pain that started after argument with hb family. Coronavirus screen: At this time, the client does not indicate any symptoms associated with coronavirus-19. Ebola Screen: No symptoms or risks identified at this time. Initial Sepsis Screen: Does the patient meet any 2 criteria? No. Patient's initial sepsis screen is negative. Does the patient have a suspected source of infection? No. Patient's initial sepsis screen is negative. Risk Assessment: Do you want to hurt yourself or someone else? Patient reports no desire to harm self or others. Onset of symptoms was March 31, 2024. 10:28 Method Of Arrival: EMS: [facility] hb 10:28 Acuity: CORRINA 3 hb DOCK CLERK: 14:36 Not kj2 Historical: - Allergies: 10:29 Aspirin; hb 10:29 CRANBERRY; hb 10:29 FISH PRODUCT DERIVATIVES; hb 10:29 GRAPEFRUIT; hb 10:29 SHELLFISH; hb - Home Meds: 10:30 Lisinopril Oral [Active]; amlodipine oral [Active]; atorvastatin oral [Active]; hb Carbamazepine Oral [Active]; clopidogrel oral [Active]; metoprolol tartrate Oral [Active]; quetiapine oral [Active]; Nitrostat SL [Active]; - PMHx: 10:29 Cerebrovascular accident; Chronic obstructive lung disease; Hypertensive disorder; hb Myocardial infarction; Seizure; - Immunization history:: Adult Immunizations up to date. - Infectious Disease History:: Denies. - Family history:: not pertinent. - Social history:: Smoking status: Patient denies any tobacco usage or history of. Screenin:02 [facility] ED Fall Risk Assessment (Adult) History of falling in the last 3 months, ld1 including since admission No falls in past 3 months (0 pts) Confusion or Disorientation No (0 pts) Intoxicated or Sedated No (0 pts) Impaired Gait Yes (1 pt) Mobility Assist Device Used Yes (1 pt) Altered Elimination Yes (1 pt) Score/Fall Risk Level 3 or more points = High Risk Oriented to surroundings, Maintained a safe environment, Educated pt \T\ family on fall prevention, incl call for assistance when getting out of bed, Assessed \T\ reinforced patient's understanding of fall precautions, Provided non-skid footwear, Hourly rounding (assess needs \T\ fall precautionary measures) done, Used ambulatory aids as needed (educated on \T\ assisted with), Used gait belt as appropriate Implemented a Fall Risk Plan of Care, Apply high fall risk patient identification: yellow non skid footwear/ fall signage, Placed fall mat w/ non beveled edge next to bed, Activated bed/chair alarm, Remained w/in arm's length of patient and in sight while toileting, Offered frequent toileting (1:1 observation), Remained with patient while ambulating, Utilized family, sitter, or virtual medical surgical tech as indicated. Abuse screen: Denies threats or abuse. Denies injuries from another. Nutritional screening: No deficits noted. Tuberculosis screening: No symptoms or risk factors identified. Assessment: 11:02 General: Appears in no apparent distress. comfortable, Behavior is calm, cooperative, ld1 appropriate for age. Pain: Complains of pain in chest Pain does not radiate. Pain currently is 7 out of 10 on a pain scale. Quality of pain is described as throbbing, Pain began suddenly, Is continuous. Neuro: Level of Consciousness is awake, alert, obeys commands, Oriented to person, place, time, situation, Appropriate for age. Cardiovascular: Capillary refill < 3 seconds Patient's skin is warm and dry. Rhythm is sinus rhythm. Respiratory: Airway is patent Respiratory effort is even, unlabored. GI: Abdomen is flat, non-distended. : No signs and/or symptoms were reported regarding the genitourinary system. EENT: No signs and/or symptoms were reported regarding the EENT system. Derm: No signs and/or symptoms reported regarding the dermatologic system. Musculoskeletal: No signs and/or symptoms reported regarding the musculoskeletal system. 11:34 Reassessment: Patient appears in no apparent distress at this time. No changes from ld1 previously documented assessment. Patient and/or family updated on plan of care and expected duration. Pain level reassessed. 12:00 Reassessment: Patient appears in no apparent distress at this time. Patient and/or kj2 family updated on plan of care and expected duration. Pain level reassessed. Patient is alert, oriented x 3, equal unlabored respirations, skin warm/dry/pink. 13:00 Reassessment: Patient appears in no apparent distress at this time. Patient and/or kj2 family updated on plan of care and expected duration. Pain level reassessed. Patient is alert, oriented x 3, equal unlabored respirations, skin warm/dry/pink. 14:33 Reassessment: Patient appears in no apparent distress at this time. Patient and/or kj2 family updated on plan of care and expected duration. Pain level reassessed. Patient is alert, oriented x 3, equal unlabored respirations, skin warm/dry/pink. 14:39 Reassessment: discharge is pending calcium result. Lab notified, they stated it will be kj2 ready in 6 minutes. 15:12 Reassessment: discharge now pending troponin and repeat ekg. kc6 15:32 Reassessment: Patient appears in no apparent distress at this time. Patient and/or kj2 family updated on plan of care and expected duration. Pain level reassessed. Patient is alert, oriented x 3, equal unlabored respirations, skin warm/dry/pink. 17:11 Reassessment: Patient appears in no apparent distress at this time. Patient and/or kj2 family updated on plan of care and expected duration. Pain level reassessed. Patient is alert, oriented x 3, equal unlabored respirations, skin warm/dry/pink. Vital Signs: 10:28 BP 152 / 112; Pulse 71; Resp 21; Temp 98; Pulse Ox 96% on R/A; Weight 56.7 kg; Height 5 hb ft. 2 in. ; Pain 9/10; 11:02 BP 172 / 108; Pulse 67; Resp 18; Pulse Ox 100% on R/A; ld1 11:34 BP 155 / 103; Pulse 64; Resp 18; Pulse Ox 96% on R/A; ld1 12:00 BP 110 / 61; Pulse 65; Resp 18; Pulse Ox 100% on R/A; kj2 13:00 BP 142 / 94; Pulse 62; Resp 20; Pulse Ox 100% on R/A; kj2 14:33 BP 136 / 78; Pulse 60; Resp 18; Pulse Ox 100% ; kj2 15:32 BP 153 / 81; Pulse 72; Resp 18; Pulse Ox 100% on R/A; kj2 17:11 BP 132 / 78; Pulse 68; Resp 20; Temp 98; Pulse Ox 100% ; kj2 10:28 Body Mass Index 22.86 (56.70 kg, 157.48 cm) hb 10:28 Pain Scale: Adult hb ED Course: 10:28 Patient arrived in ED. hb 10:29 Triage completed. hb 10:29 Kye De Anda MD is Attending Physician. rt 10:35 Arm band placed on. hb 10:37 Attending Physician role handed off by Kye De Anda MD juan diego 10:37 Michael Grimm MD is Attending Physician. juan diego 11:01 Rita Hoyos, YANETH is Primary Nurse. ld1 11:02 Patient has correct armband on for positive identification. Placed in gown. Bed in low ld1 position. Call light in reach. Side rails up X2. school lunch monitor on. Pulse ox on. NIBP on. Door closed. Noise minimized. Warm blanket given. 11:02 No provider procedures requiring assistance completed. Inserted saline lock: 22 gauge ld1 in right hand, using aseptic technique. Blood collected. Flushed with 10 mL NS. Patient maintains SpO2 saturation greater than 95% on room air. 11:44 Chest Single View In Process Unspecified. EDMS 12:00 Provided Education on: call light. kj2 14:07 Josse Olson MD is Referral Physician. [facility] 14:07 Enrique Reyna MD is Referral Physician. [facility] Administered Medications: 11: Drug: NS 0.9% IV 500 ml IV at bolus once; to be given as a bolus over 30 minutes Route: ld1 IV; Rate: bolus; Site: right hand; 11: Drug: Levalbuterol Inhalation 2.5 mg Inhalation once Route: Inhalation; ld1 11: Drug: Ipratropium Inhalation Aerosol 0.5 mg Inhalation once Route: Inhalation; ld1 11:01 Drug: MethylPrednisoLONE IVP 125 mg IVP once Route: IVP; Site: right hand; ld1 14:38 Follow up: Response: No adverse reaction kj2 11:02 Drug: Metoprolol PO 50 mg PO once Route: PO; ld1 14:37 Follow up: Response: No adverse reaction kj2 11:02 Drug: Lisinopril PO 20 mg PO once Route: PO; ld1 14:37 Follow up: Response: No adverse reaction kj2 11:02 Drug: Norvasc PO 5 mg PO once Route: PO; ld1 14:37 Follow up: Response: No adverse reaction kj2 11:10 Drug: Levalbuterol Inhalation 1.25 mg Inhalation once Route: Inhalation; ld1 12:46 Not Given (Patient Refused): calcium [id number] mg 2 tablet PO once kj2 12:46 Drug: Magnesium Sulfate IVPB 2 grams IVPB once over 1 hrs Route: IVPB; Infused Over: 1 kj2 hrs; Site: right antecubital; 14:35 Follow up: Response: No adverse reaction kj2 14:35 Follow up: Response: No adverse reaction kj2 13:12 Drug: Calcium Gluconate IVPB 2 grams IVPB once over 30 mins; (mix in NS 100 mL) Route: kj2 IVPB; Infused Over: 30 mins; Site: right antecubital; 14:35 Follow up: Response: No adverse reaction kj2 14:35 Follow up: Response: No adverse reaction kj2 14:09 Drug: Calcium Carbonate PO 500 mg 2 tablet PO once Route: PO; kj2 14:34 Follow up: Response: No adverse reaction kj2 Medication: 11:02 VIS not applicable for this client. ld1 Outcome: 14:07 Discharge ordered by . juan diego 17:12 Discharged to home via wheelchair, with family, kj2 17:12 Condition: stable 17:12 Discharge instructions given to patient, family, Instructed on discharge instructions, follow up and referral plans. medication usage, Demonstrated understanding of instructions, follow-up care, medications, Prescriptions given X 6 17:13 Patient left the ED. hb Signatures: Dispatcher [employer] EDMS Michael Grimm MD MD cha Baxter, Heather, YANETH RN Rita Hoyos RN RN ld1 Cate Melchor RN RN kc6 Kye De Anda MD MD rt Hortencia Maldonado RN RN kj2 Corrections: (The following items were deleted from the chart) 10:35 10:28 BP 152 / 112; Pulse 71bpm; Resp 21bpm; Pulse Ox 96% RA; Temp 98F; Pain 9/10, hb Adult; hb 10:35 10:30 Home Meds: nitroglycerin 0.4 mg SL Tablet, Sublingual; hb hb
--- NOTE | 2024-03-31 14:08 | EDPHYS ---
Physician Documentation [facility] Name: Geetha Khan Age: 48 yrs Sex: Female : 1975 Arrival Date: 03/31/2024 Time: 10:20 Bed 20 Private MD: ED Physician Michael Grimm HPI: 03/31 11:05 This 48 yrs old Female presents to ER via EMS with complaints of Chest Pain. juan diego 11:05 The patient or guardian reports chest pain that is located primarily in the substernal juan diego area, anterior chest wall, left. Onset: 2 day(s) ago. The pain does not radiate. Associated signs and symptoms: The patient has no apparent associated signs or symptoms. The chest pain is described as aching. Modifying factors: The symptoms are alleviated by nothing. the symptoms are aggravated by nothing. Severity of pain: At its worst the pain was mild in the emergency department the pain is unchanged. The patient has not experienced similar symptoms in the past. 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 - Infectious Disease History:: Denies. - Family history:: not pertinent. - Social history:: Smoking status: Patient denies any tobacco usage or history of. ROS: 11:05 Constitutional: Negative for fever, chills, and weight loss, Eyes: Negative for injury, juan diego pain, redness, and discharge, ENT: Negative for injury, pain, and discharge, Neck: Negative for injury, pain, and swelling, Abdomen/GI: Negative for abdominal pain, nausea, vomiting, diarrhea, and constipation, Back: Negative for injury and pain, : Negative for injury, bleeding, discharge, and swelling, MS/Extremity: Negative for injury and deformity, Skin: Negative for injury, rash, and discoloration, Neuro: Negative for headache, weakness, numbness, tingling, and seizure, Psych: Negative for depression, anxiety, suicide ideation, homicidal ideation, and hallucinations, Allergy/Immunology: Negative for hives, rash, and allergies, Endocrine: Negative for neck swelling, polydipsia, polyuria, polyphagia, and marked weight changes, Hematologic/Lymphatic: Negative for swollen nodes, abnormal bleeding, and unusual bruising, 11:05 Cardiovascular: Positive for chest pain, of the chest, 11:05 Respiratory: Positive for cough, shortness of breath, wheezing, expiratory, Exam: 11:05 Constitutional: This is a well developed, well nourished patient who is awake, alert, juan diego and in no acute distress. Head/Face: Normocephalic, atraumatic. Eyes: Pupils equal round and reactive to light, extra-ocular motions intact. Lids and lashes normal. Conjunctiva and sclera are non-icteric and not injected. Cornea within normal limits. Periorbital areas with no swelling, redness, or edema. ENT: Nares patent. No nasal discharge, no septal abnormalities noted. Tympanic membranes are normal and external auditory canals are clear. Oropharynx with no redness, swelling, or masses, exudates, or evidence of obstruction, uvula midline. Mucous membranes moist. Neck: Trachea midline, no thyromegaly or masses palpated, and no cervical lymphadenopathy. Supple, full range of motion without nuchal rigidity, or vertebral point tenderness. No Meningismus. Chest/axilla: Normal chest wall appearance and motion. Nontender with no deformity. No lesions are appreciated. Cardiovascular: Regular rate and rhythm with a normal S1 and S2. No gallops, murmurs, or rubs. Normal PMI, no JVD. No pulse deficits. Abdomen/GI: Soft, non-tender, with normal bowel sounds. No distension or tympany. No guarding or rebound. No evidence of tenderness throughout. Back: No spinal tenderness. No costovertebral tenderness. Full range of motion. Skin: Warm, dry with normal turgor. Normal color with no rashes, no lesions, and no evidence of cellulitis. MS/ Extremity: Pulses equal, no cyanosis. Neurovascular intact. Full, normal range of motion., bilateral aka Neuro: Awake and alert, GCS 15, oriented to person, place, time, and situation. Cranial nerves II-XII grossly intact. Motor strength 5/5 in all extremities. Sensory grossly intact. Cerebellar exam normal. Normal gait. Psych: Awake, alert, with orientation to person, place and time. Behavior, mood, and affect are within normal limits. 11:05 ECG was reviewed by the Attending Physician. 15:31 ECG was reviewed by the Attending Physician. [facility] Vital Signs: 10:28 BP 152 / 112; Pulse 71; Resp 21; Temp 98; Pulse Ox 96% on R/A; Weight 56.7 kg; Height 5 hb ft. 2 in. ; Pain 9/10; 11:02 BP 172 / 108; Pulse 67; Resp 18; Pulse Ox 100% on R/A; ld1 11:34 BP 155 / 103; Pulse 64; Resp 18; Pulse Ox 96% on R/A; ld1 12:00 BP 110 / 61; Pulse 65; Resp 18; Pulse Ox 100% on R/A; kj2 13:00 BP 142 / 94; Pulse 62; Resp 20; Pulse Ox 100% on R/A; kj2 14:33 BP 136 / 78; Pulse 60; Resp 18; Pulse Ox 100% ; kj2 15:32 BP 153 / 81; Pulse 72; Resp 18; Pulse Ox 100% on R/A; kj2 17:11 BP 132 / 78; Pulse 68; Resp 20; Temp 98; Pulse Ox 100% ; kj2 10:28 Body Mass Index 22.86 (56.70 kg, 157.48 cm) hb 10:28 Pain Scale: Adult hb MDM: 10:40 Medical Screening Exam initiated juan diego 11:09 Differential diagnosis: abnormal EKG, acute myocardial infarction, acute pericarditis, [place]go anxiety, chest wall pain, cholecystitis, Cholelithiasis costochondritis, esophagitis, gastritis, herpes zoster, pancreatitis, peptic ulcer disease, pericarditis, pleurisy, pulmonary embolus, stable angina, thoracic aortic disection, unstable angina. HEART Score: ECG: Non specific repolarization disturbance / LBTB / PM (1), Age: > 45 and < 65 years (1), Risk Factors: > or = 3 Risk factors for atherosclerotic disease (2), [Hypercholesterolemia] [Hypertension] [Active Smoker] [+ Family HX] Troponin: < or = 1 x Normal Limit (0). The patient was not given aspirin in the Emergency Department. Not indicated due to patient's past medical history. YEVGENIY Risk Score: 1 - Three or more CAD risk factors, 1- Known CAD, 1 - Recent [<24hrs] Severe Angina, TOTAL SCORE = 3. Data reviewed: vital signs, nurses notes, EMS record, lab test result(s), EKG, radiologic studies, plain films. Consideration of Admission/Observation Escalation of care including admission/observation considered. I considered the following discharge prescriptions or medication management in the emergency department Medications were administered in the Emergency Department. See MAR. Independent interpretation of the following test(s) in the Emergency Department EKG: See my EKG interpretation above. 03/31 11:18 Order name: Basic Metabolic Panel [facility] 03/31 11:18 Order name: Liver (Hepatic) Function [facility] 03/31 11:18 Order name: Troponin High Sensitivity [facility] 03/31 11:18 Order name: NT PRO-BNP [facility] 03/31 11:18 Order name: Magnesium [facility] 03/31 11:18 Order name: CBC with Automated Diff [facility] 03/31 11:18 Order name: Protime (+INR) [facility] 03/31 11:37 Order name: CBC with Automated Diff; Complete Time: 11:53 [facility] 03/31 12:08 Order name: Basic Metabolic Panel; Complete Time: 12:21 [facility] 03/31 12:08 Order name: Liver (Hepatic) Function; Complete Time: 12:21 [facility] 03/31 12:08 Order name: Troponin High Sensitivity; Complete Time: 12:21 [facility] 03/31 12:08 Order name: NT PRO-BNP; Complete Time: 12:21 [facility] 03/31 12:08 Order name: Magnesium; Complete Time: 12:21 [facility] 03/31 12:12 Order name: Protime (+INR); Complete Time: 12:21 [facility] 03/31 13:23 Order name: Calcium; Complete Time: 14:42 bd 03/31 15:01 Order name: Troponin High Sensitivity; Complete Time: 16:41 [facility] 03/31 11:00 Order name: Chest Single View [facility] 03/31 12:20 Order name: RAD; Complete Time: 12:21 [facility] 03/31 15:01 Order name: EKG; Complete Time: 15:02 [facility] 03/31 10:40 Order name: Cardiac monitoring; Complete Time: 10:42 03/31 10:40 Order name: EKG - Nurse/Tech; Complete Time: :03/31 10:40 Order name: IV Saline Lock; Complete Time: :03/31 10:40 Order name: Labs collected and sent; Complete Time: : juan [place]go 03/31 10:40 Order name: O2 Per Protocol; Complete Time: 10:41 03/31 10:40 Order name: O2 Sat Monitoring; Complete Time: 10: [facility] 03/31 15:01 Order name: EKG - Nurse/Tech; Complete Time: 15:31 [facility] EC:05 Rate is 62 beats/min. Rhythm is regular. QRS [place] is Normal. NV interval is normal. QRS juan [place]go interval is normal. QT interval is normal. No Q waves. T waves are Normal in leads I, aVL, V5, V6. Clinical impression: NSR w/ Non-specific ST/T Changes, Abnormal EKG without significant change, LVH, and No evidence of ischemia. Interpreted by me. Reviewed by me. 15:31 Rate is 68 beats/min. Rhythm is regular. QRS [place] is Normal. NV interval is normal. QRS juan [place] interval is normal. QT interval is normal. No Q waves. T waves are Normal. ST Segment is depressed in leads I, aVL, V5, V6. Clinical impression: Abnormal EKG without significant change and No evidence of ischemia. Interpreted by me. Reviewed by me. Administered Medications: Drug: NS 0.9% IV 500 ml IV at bolus once; to be given as a bolus over 30 minutes Route: ld1 IV; Rate: bolus; Site: right hand; Drug: Levalbuterol Inhalation 2.5 mg Inhalation once Route: Inhalation; ld03 28: Drug: Ipratropium Inhalation Aerosol 0.5 mg Inhalation once Route: Inhalation; ld03 28: Drug: MethylPrednisoLONE IVP 125 mg IVP once Route: IVP; Site: right hand; ld1 14:38 Follow up: Response: No adverse reaction kj2 11: Drug: Metoprolol PO 50 mg PO once Route: PO; ld1 14:37 Follow up: Response: No adverse reaction kj2 11: Drug: Lisinopril PO 20 mg PO once Route: PO; ld1 14:37 Follow up: Response: No adverse reaction kj2 11:02 Drug: Norvasc PO 5 mg PO once Route: PO; ld1 14:37 Follow up: Response: No adverse reaction kj2 11:10 Drug: Levalbuterol Inhalation 1.25 mg Inhalation once Route: Inhalation; ld1 12:46 Not Given (Patient Refused): calcium [id number] mg 2 tablet PO once kj2 12:46 Drug: Magnesium Sulfate IVPB 2 grams IVPB once over 1 hrs Route: IVPB; Infused Over: 1 kj2 hrs; Site: right antecubital; 14:35 Follow up: Response: No adverse reaction kj2 14:35 Follow up: Response: No adverse reaction kj2 13:12 Drug: Calcium Gluconate IVPB 2 grams IVPB once over 30 mins; (mix in NS 100 mL) Route: kj2 IVPB; Infused Over: 30 mins; Site: right antecubital; 14:35 Follow up: Response: No adverse reaction kj2 14:35 Follow up: Response: No adverse reaction kj2 14:09 Drug: Calcium Carbonate PO 500 mg 2 tablet PO once Route: PO; kj2 14:34 Follow up: Response: No adverse reaction kj2 Disposition Summary: 03/31/24 14:07 Discharge Ordered Notes: Location: Home juan [place]go Problem: new juan diego Symptoms: have improved juan diego Condition: Stable juan diego Diagnosis - COPD/ Chronic obstructive pulmonary disease with (acute) exacerbation juan diego - Essential (primary) hypertension juan diego - Tobacco abuse counseling juan diego - Tobacco use juan diego - Chest pain, unspecified juan diego - Hypocalcemia juan diego Followup: juan diego - With: Private Physician - When: 1 - 2 days - Reason: Recheck today's complaints, Continuance of care, Re-evaluation by your physician Followup: juan [place]go - With: Josse Olson MD - When: 2 - 3 days - Reason: Recheck today's complaints, Re-evaluation by your physician Followup: juan diego - With: Enrique Reyna MD - When: 2 - 3 days - Reason: Recheck today's complaints, Re-evaluation by your physician Discharge Instructions: - Discharge Summary Sheet juan diego - Nonspecific Chest Pain, Adult juan diego - Chronic Bronchitis, Adult juan diego - Chronic Obstructive Pulmonary Disease juan diego - Hypertension, Adult juan diego - Self-Destructive Behavior juan diego - Steps to Quit Smoking juan diego - Health Risks of Smoking juan diego - Chronic Obstructive Pulmonary Disease, Iyta-[id number]-Mwkn juan diego - Nonspecific Chest Pain, Adult, Pmpn-tf-[id number] juan diego - Hypertension, Adult, Nisw-ri-Icik juan diego - Steps to Quit Smoking, Bqsp-el-Mwfg juan diego - Cough, Adult, Aycq-kr-Npok juan diego - How to Take Your Blood Pressure, Ydgx-ln-Ocrg juan diego - Hypocalcemia, Adult juan diego - Managing Your Hypertension juan diego Forms: - Medication Reconciliation Form juan diego - Antibiotic Education juan diego - Prescription Opioid Use juan diego - Patient Portal Instructions juan diego - Leadership Thank You Letter [facility] Prescriptions: - albuterol sulfate 90 mcg/actuation Inhalation HFA Aerosol Inhaler - inhale 2 puff INHALATION route every 4 to 6 hours as needed for shortness of juan [place]go breath or wheezing; 1 unit; Refills: 0, Product Selection Permitted - Calcium 600 with Vitamin D3 - take 1 tablet ORAL route 2 times per day; 60 tablet; Refills: 0, Product juan [place]go Selection Permitted - MagOx 400 mg (241.3 mg magnesium) Oral tablet - take 1 tablet ORAL route every 12 hours; 60 tablet; Refills: 0, Product juan [place] Selection Permitted - Albuterol Sulfate 2.5 mg /3 mL (0.083 %) Inhalation Solution for Nebulization - inhale 1 unit NEBULIZATION route every 4-6 hours As needed; 30 unit; Refills: juan [place]go 0, Product Selection Permitted - Zithromax Z-Zack 250 mg Oral Tablet - take 1 tablet ORAL route as directed for 5 days Day 1 - take two (2) tablets juan diego one time. Day 2, 3, 4 , 5 take one (1) tablet once daily.; 6 tablet; Refills: 0, Product Selection Permitted - Prednisone 20 mg Oral Tablet - take 2 tablets ORAL route once daily for 5 days; 10 tablet; Refills: 0, Product juan diego Selection Permitted Signatures: Dispatcher [employer] EDMS Michael Grimm MD MD cha Baxter, Heather, RN RN Rita Hoyos RN RN ld1 Hortencia Maldonado RN RN kj2 Corrections: (The following items were deleted from the chart) 10:35 10:30 Home Meds: nitroglycerin 0.4 mg SL Tablet, Sublingual; hb hb 10:40 10:40 Chest Single View+RAD.RAD.BRZ ordered. EDMS EDMS 14:19 10:40 BASIC METABOLIC PANEL+C.LAB.BRZ ordered. EDMS EDMS 14:19 10:40 HEPATIC FUNCTION+C.LAB.BRZ ordered. EDMS EDMS 14:19 10:40 MAGNESIUM+C.LAB.BRZ ordered. EDMS EDMS 14:19 10:40 PROBNP+C.LAB.BRZ ordered. EDMS EDMS 14:19 10:40 Troponin High Sensitivity+C.LAB.BRZ ordered. EDMS EDMS 14:22 10:40 CBC+H.LAB.BRZ ordered. EDMS EDMS 14:22 10:40 PROTIME (+INR)+COAG.LAB.BRZ ordered. EDMS EDMS
--- NOTE | 2024-04-02 11:56 | EKG ---
Test Date: 2024-03-31 Test Time: 15:28:47 Keyboard Specialist: JOE MEASUREMENT RESULTS: Intervals: Rate: 68 OK: 196 QRSD: 88 QT: 422 QTc: 448 [place]: P: 62 OK: 196 QRS: 13 T: 157 INTERPRETIVE STATEMENTS: Normal sinus rhythm Left ventricular hypertrophy with repolarization abnormality Abnormal ECG Compared to ECG 03/31/2024 10:49:12 No significant changes Electronically Signed On 04-02-24 11:55:15 BALE PILER by Alan Garay
--- NOTE | 2024-04-02 11:58 | EKG ---
Test Date: 2024-03-31 Test Time: 10:49:12 Sand Technician: LINSEY MEASUREMENT RESULTS: Intervals: Rate: 62 MT: 180 QRSD: 82 QT: 442 QTc: 448 [place]: P: 34 MT: 180 QRS: 5 T: 161 INTERPRETIVE STATEMENTS: Normal sinus rhythm Left ventricular hypertrophy with repolarization abnormality Abnormal ECG Compared to ECG 03/19/2024 22:40:23 No significant changes Electronically Signed On 04-02-24 11:56:16 WAREHOUSE OPERATIONS MANAGER by Alan Garay
[2024-04-03 01:32] VITALS: BP 132/78; TEMP 98; O2SAT 100
== END 2024-03-31 17:13 | disposition home or self-care (01) ==
LOC: ER 10:20
DX: J44.1 Chronic obstructive pulmonary disease with (acute) exacerbation (principal); I10 Essential (primary) hypertension; E83.51 Hypocalcemia; Z71.6 Tobacco abuse counseling
CPT/HCPCS: 93005 ×2; 85025; 80048; 36415; 82310; 83735; 85610; 80076; 84484 ×2; 83880; 71045; 99285; J3475; J0612; J7614; J7644; J2919; J7040

== ENCOUNTER 2024-04-01 19:37 | Emergency (ER) | payer OTHER, SELFPAY ==
--- NOTE | 2024-04-01 21:29 | RAD REPORT ---
EXAM: Chest Single View HISTORY: CHEST PAIN COMPARISON: 03/31/2024 FINDINGS: LUNGS/PLEURA: The lungs are clear. No pleural effusions or pneumothorax. No pulmonary edema. MEDIASTINUM: The mediastinal silhouette is within normal limits. CARDIAC: Mild cardiomegaly UPPER ABDOMEN: No significant abnormality. BONES: No acute abnormality. Remote left-sided rib fractures. LINES/TUBES/OTHER: N/A IMPRESSION: No evidence of acute cardiopulmonary disease.
[2024-04-01] MEDS ORDERED: DIAZEPAM 5 MG TABLET ONE (21:54)
[2024-04-01 22:59] LABS: Absolute Basophils 0.1 K/uL (0-0.5); Absolute Lymphocytes (CBC) 2.3 K/uL (0.7-4.9); Absolute Monocytes 0.7 K/uL (0.1-1.3); Absolute Neutrophil 5.7 K/uL (1.8-8.0); Basophils % 0.8 % (0-1.3); Eosinophils % 0.2 % (0-4.4); Hematocrit 30.3 % (36.0-45.0); Hemoglobin 10.5 g/dL (12.0-15.0); MCH 33.8 pg (27.0-35.0); MCHC 34.8 g/dL (32.0-36.0); MCV 97.4 fL (80-100); MPV 6.5 fL (7.6-11.3); Monocytes % 8.5 % (3.3-12.3); Neutrophils % 64.5 % (41.7-73.7); Nucleated Red Blood Cells % 0.1 % (0-0); Platelets 370 thou/uL (152-406); RBC Red Blood Cell Count 3.11 M/uL (3.86-4.86); Red Cell Distribution Width 12.6 % (12.1-15.2)
[2024-04-01 23:07] LABS: Anion Gap 12.6 mEq/L (5.0-15.0); Troponin High Sensitivity 50.6 pg/mL (<58.9)
[2024-04-01 23:08] LABS: Potassium 4.6 mEq/L (3.5-5.1)
[2024-04-02 00:31] LABS: SARS-CoV-2 Antigen CONTROL BLUE LINE VIS/BG OK; SARS-CoV-2 Antigen Rapid Res Negative (Negative)
--- NOTE | 2024-04-02 02:05 | ER ---
Nurse's Notes [facility] Name: Geetha Khan Age: 48 yrs Sex: Female : 1975 Arrival Date: 04/01/2024 Time: 19:37 Bed 19 Private MD: Diagnosis: Chest pain, unspecified;Anxiety disorder, unspecified Presentation: 04/01 20:42 Chief complaint: EMS states: Chest Pain, Anxiety. Coronavirus screen: Client denies ay travel out of the [place] in the last 14 days. Ebola Screen: No symptoms or risks identified at this time. Initial Sepsis Screen: Does the patient meet any 2 criteria? No. Patient's initial sepsis screen is negative. Does the patient have a suspected source of infection? No. Patient's initial sepsis screen is negative. Risk Assessment: Do you want to hurt yourself or someone else? Patient reports no desire to harm self or others. Note Per EMS, pt c/o CP and anxiety. Pt is alert and oriented, has left sided weakness from prior stroke. Denies SOP, but endorses CP. Pt on O2 and cardiac monitors. Onset of symptoms was April 01, 2024. 20:42 Method Of Arrival: EMS: [facility] ay 20:42 Acuity: CORRINA 3 ay Triage Assessment: 20:42 General: Appears in no apparent distress. comfortable, Behavior is calm, cooperative. ay Pain: Complains of pain in chest. EENT: No signs and/or symptoms were reported regarding the EENT system. Neuro: Level of Consciousness is awake, alert, obeys commands, Oriented to person, place, time, situation, Speech is normal. Cardiovascular: Capillary refill < 3 seconds Rhythm is regular. Respiratory: Airway is patent Respiratory effort is even, unlabored, Respiratory pattern is regular, symmetrical. GI: Abdomen is round. : No signs and/or symptoms were reported regarding the genitourinary system. Derm: No signs and/or symptoms reported regarding the dermatologic system. Musculoskeletal: No signs and/or symptoms reported regarding the musculoskeletal system. HEAD OF ADVERTISING: 23:46 LMP N/A - Irregular menses, Not vc1 Historical: - Allergies: 19:39 Aspirin; vc1 19:39 CRANBERRY; vc1 19:39 FISH PRODUCT DERIVATIVES; vc1 19:39 GRAPEFRUIT; vc1 19:39 SHELLFISH; vc1 - PMHx: 19:39 Cerebrovascular accident; Chronic obstructive lung disease; Hypertensive disorder; vc1 Myocardial infarction; Seizure; - PSHx: 19:39 None; vc1 - Immunization history:: Client reports receiving the 2nd dose of the Covid vaccine. - Infectious Disease History:: Denies. - Social history:: Smoking status: Patient reports the use of cigarette tobacco products, smokes one pack cigarettes per day. Screenin:39 [facility] ED Fall Risk Assessment (Adult) History of falling in the last 3 months, vc1 including since admission Yes- fall prone (multiple falls) (3 pts) Confusion or Disorientation No (0 pts) Intoxicated or Sedated No (0 pts) Impaired Gait Yes (1 pt) Mobility Assist Device Used Yes (1 pt) Altered Elimination Yes (1 pt) Score/Fall Risk Level 3 or more points = High Risk Oriented to surroundings, Maintained a safe environment, Educated pt \T\ family on fall prevention, incl call for assistance when getting out of bed, Assessed \T\ reinforced patient's understanding of fall precautions, Hourly rounding (assess needs \T\ fall precautionary measures) done, Remained with patient while ambulating, Utilized family, sitter, or virtual contribution solicitor as indicated. Abuse screen: Denies threats or abuse. Nutritional screening: No deficits noted. Tuberculosis screening: No symptoms or risk factors identified. Assessment: 20:50 General: See Triage Assessment. ay 23:49 Reassessment: Patient and/or family updated on plan of care and expected duration. Pain vc1 level reassessed. Patient is alert, oriented x 3, equal unlabored respirations, skin warm/dry/pink. Patient states feeling better. Patient states symptoms have improved. Pain: Complains of pain in chest. Vital Signs: 20:42 BP 122 / 110; Pulse 62; Resp 18; Temp 97.7; Pulse Ox 100% on R/A; ay 23:46 BP 128 / 75; Pulse 65; Resp 17; Pulse Ox 100% ; vc1 04/02 01:00 BP 135 / 89; Pulse 93; Resp 18; Pulse Ox 98% ; ay 02:00 BP 160 / 105; Pulse 68; Resp 18; Pulse Ox 97% on R/A; ay 02:30 BP 147 / 90; Pulse 67; Resp 17; Pulse Ox 100% ; ay ED Course: 04/01 19:39 Patient arrived in ED. rv1 19:39 Arm band placed on right wrist. vc1 19:40 ointment mill tender on. Pulse ox on. NIBP on. ay 19:45 Michael Nguyen PA is PHCP. cp 19:45 Michael Grimm MD is Attending Physician. cp 20:42 Sindy Obregon, RN is Primary Nurse. ay 20:50 Inserted saline lock: 20 gauge in right wrist, using aseptic technique. ay 21:17 XRAY Chest (1 view) In Process Unspecified. EDMS 21:17 Triage completed. ay 23:35 RSV Sent. ay 23:35 SARS RAPID Sent. ay 23:36 Influenza Screen (a \T\ B) Sent. ay 04/02 01:00 EKG done, by ED staff, reviewed by Michael LEBRON. ay 01:12 Troponin High Sensitivity Sent. ay :16 Attending Physician role handed off by Michael Grimm MD sp4 01:16 Uriel Cannon MD is Attending Physician. sp4 02:57 IV discontinued, intact, bleeding controlled, No redness/swelling at site. Pressure ay dressing applied. Administered Medications: 04/01 21:49 CANCELLED (Physician Discretion): [id number] mg PO once cp 22:26 Drug: Diazepam PO 5 mg PO once Route: PO; ay 04/02 02:26 Follow up: Response: No adverse reaction ay 04/01 22:59 CANCELLED (Physician Discretion): tussionex pennkinetic ersuspension 5 ml PO once cp 04/02 02:25 Drug: HYDROcodone-acetaminophen PO 5 mg-325 mg 2 tabs PO once Route: PO; ay 03:07 Follow up: Response: No adverse reaction ay Medication: 04/01 23:49 VIS not applicable for this client. vc1 Outcome: 04/02 02:05 Discharge ordered by . sp4 02:57 Discharged to home via wheelchair, ay 02:57 Condition: stable 02:57 Discharge instructions given to patient, Instructed on discharge instructions, follow up and referral plans. Demonstrated understanding of instructions, follow-up care, 03:06 Patient left the ED. ay Signatures: Dispatcher [employer] EDNM Michael Nguyen PA PA cp Calcote, Vanessa, RN RN vc1 Autumn Rodriguez rv1 Uriel Cannon MD MD sp4 Yakharsh, Mariposau, RN RN ay
--- NOTE | 2024-04-02 02:05 | EDPHYS ---
Physician Documentation [facility] Name: Geetha Khan Age: 48 yrs Sex: Female : 1975 Arrival Date: 04/01/2024 Time: 19:37 Bed 19 Private MD: ED Physician Uriel Cannon HPI: 04/01 19:50 This 48 yrs old Female presents to ER via EMS with complaints of Chest Pain. cp 19:50 The patient or guardian reports chest pain that is located primarily in the anterior cp chest wall, bilaterally. 19:50 Onset: today. The pain does not radiate. Associated signs and symptoms: Pertinent cp positives: cough, Pertinent negatives: abdominal pain, vomiting, fever. 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 - Infectious Disease History:: Denies. - Social history:: Smoking status: Patient reports the use of cigarette tobacco products, smokes one pack cigarettes per day. ROS: 19:55 Constitutional: Negative for body aches, chills, fever, poor PO intake, cp 19:55 Cardiovascular: Positive for chest pain, Negative for edema, palpitations, cp 19:55 Respiratory: Positive for cough, Exam: 20:00 Constitutional: The patient appears in no acute distress, alert, awake, cp non-diaphoretic, non-toxic, well developed, well nourished, 20:00 Head/Face: Normocephalic, atraumatic. cp 20:00 Eyes: Periorbital structures: appear normal, Conjunctiva: normal, no exudate, no injection, Sclera: no appreciated abnormality, Lids and lashes: appear normal, bilaterally, 20:00 ENT: External ear(s): are unremarkable, Nose: is normal, Mouth: Lips: moist, Oral mucosa: moist, Posterior pharynx: Airway: no evidence of obstruction, patent, 20:00 Chest/axilla: Inspection: normal, Palpation: crepitus, is not appreciated, tenderness, is not appreciated, 20:00 Cardiovascular: Rate: normal, Rhythm: regular, Edema: is not appreciated, JVD: is not appreciated, 20:00 Respiratory: the patient does not display signs of respiratory distress, Respirations: normal, no use of accessory muscles, no retractions, labored breathing, is not present, Breath sounds: are clear throughout, no decreased breath sounds, no stridor, no wheezing, 20:00 Abdomen/GI: Inspection: abdomen appears normal, Palpation: abdomen is soft and non-tender, in all quadrants, 20:00 Neuro: Orientation: to person, place \T\ time. Mentation: is normal, left side weakness from previous CVA, 23:08 ECG was reviewed by the Attending Physician. Vital Signs: 20:42 BP 122 / 110; Pulse 62; Resp 18; Temp 97.7; Pulse Ox 100% on R/A; ay 23:46 BP 128 / 75; Pulse 65; Resp 17; Pulse Ox 100% ; vc1 04/02 01:00 BP 135 / 89; Pulse 93; Resp 18; Pulse Ox 98% ; ay 02:00 BP 160 / 105; Pulse 68; Resp 18; Pulse Ox 97% on R/A; ay 02:30 BP 147 / 90; Pulse 67; Resp 17; Pulse Ox 100% ; ay MDM: 04/01 19:46 Medical Screening Exam initiated 04/01 20:39 Order name: Basic Metabolic Panel; Complete Time: 23:43 04/01 23:43 Interpretation: Normal except: NA 133; CO2 20; BUN 24; CRE 1.50; GFR 43. 04/01 20:39 Order name: CBC with Diff; Complete Time: 23:43 04/01 23:44 Interpretation: Normal except: RBC 3.11; HGB 10.5; HCT 30.3; MPV 6.5. 04/01 20:39 Order name: Troponin HS; Complete Time: 23:43 04/01 23:45 Interpretation: Reviewed. 04/01 21:49 Order name: Influenza Screen (a \T\ B); Complete Time: 01:17 cp 04/01 21:49 Order name: SARS RAPID; Complete Time: 01:17 cp 04/01 21:49 Order name: RSV; Complete Time: 01:17 cp 04/02 00:02 Order name: Troponin High Sensitivity; Complete Time: 02: cp 04/01 20:39 Order name: XRAY Chest (1 view); Complete Time: 21:34 cp 04/01 19:54 Order name: EKG - Nurse/Tech; Complete Time: 23:36 cp 04/01 20:14 Order name: Vital Signs; Complete Time: 23:45 cp 04/01 20:39 Order name: Cardiac monitoring; Complete Time: 23:36 cp 04/01 20:39 Order name: IV Saline Lock; Complete Time: 23:36 cp 04/01 20:39 Order name: Labs collected and sent; Complete Time: 23:36 cp 04/01 20:39 Order name: O2 Per Protocol; Complete Time: 23:45 cp 04/01 20:39 Order name: O2 Sat Monitoring; Complete Time: 23:36 cp EC:08 Rate is 57 beats/min. Rhythm is regular. TN interval is normal. QRS interval is normal. cp QT interval is normal. T waves are Inverted in leads I, II, aVL, V2, V4, V5, V6. Interpreted by me. Reviewed by me. Administered Medications: 21:49 CANCELLED (Physician Discretion): [id number] mg PO once cp 22:26 Drug: Diazepam PO 5 mg PO once Route: PO; ay 04/02 02:26 Follow up: Response: No adverse reaction ay 04/01 22:59 CANCELLED (Physician Discretion): tussionex pennkinetic ersuspension 5 ml PO once cp 04/02 02:25 Drug: HYDROcodone-acetaminophen PO 5 mg-325 mg 2 tabs PO once Route: PO; ay 03:07 Follow up: Response: No adverse reaction ay Disposition: 02:04 Co-signature as Attending Physician, Uriel Cannon MD I agree with the assessment sp4 and plan of care. I reviewed the patient's care provided by Advanced Practice Provider \T\ agree w/ the diagnosis \T\ care plan. I personally saw the pt \T\ performed a substantive portion of the visit, incldng all aspects of the (History/Exam/Medical Decision Making). Disposition Summary: 04/02/24 02:05 Discharge Ordered Notes: Location: Home sp4 Problem: new sp4 Symptoms: have improved sp4 Condition: Stable sp4 Diagnosis - Chest pain, unspecified sp4 - Anxiety disorder, unspecified sp4 Followup: sp4 - With: Private Physician - When: 7 - 10 days - Reason: Recheck today's complaints Discharge Instructions: - Discharge Summary Sheet sp4 - Chest Wall Pain sp4 Forms: - Patient Portal Instructions sp4 Signatures: Dispatcher [employer] EDMS Michael Nguyen PA PA cp Syeda Bruce RN RN vc1 Uriel Cannon MD MD sp4 Sindy Obregon RN RN ay Corrections: (The following items were deleted from the chart) 04/01 20:40 20:40 Chest Single View+RAD.RAD.BRZ ordered. EDMS EDMS 21:49 21:35 traMADol PO 50 mg PO once ordered. cp cp 22:59 21:49 Tussionex Pennkinetic ER PO Suspension 5 ml PO once ordered. cp cp
[2024-04-02] MEDS ORDERED: HYDROCODONE/APAP 5/325 MG TAB ONE (02:24)
--- NOTE | 2024-04-02 11:43 | EKG ---
Test Date: 2024-04-01 Test Time: 23:02:33 Wind Turbine Performance Engineer: FERMÍN MEASUREMENT RESULTS: Intervals: Rate: 57 CA: 194 QRSD: 88 QT: 460 QTc: 447 [place]: P: 43 CA: 194 QRS: 25 T: 162 INTERPRETIVE STATEMENTS: Sinus bradycardia Left ventricular hypertrophy with repolarization abnormality Abnormal ECG Compared to ECG 03/19/2024 22:40:23 Sinus rhythm no longer present Electronically Signed On 04-02-24 11:42:58 CEMETERY VAULT INSTALLER by Alan Garay
[2024-04-03 02:39] VITALS: BP 147/90; TEMP 97.7; O2SAT 100
== END 2024-04-02 03:06 | disposition home or self-care (01) ==
LOC: ER 19:37
DX: F41.9 Anxiety disorder, unspecified (principal); F17.210 Nicotine dependence, cigarettes, uncomplicated; Z11.52 Encounter for screening for COVID-19
CPT/HCPCS: 36415; 71045; 80048; 84484; 85025; 87804; 87807; 87811; 93005; 99285

== ENCOUNTER 2024-04-03 19:42 | Emergency (ER) | payer OTHER ==
[2024-04-03] MEDS ORDERED: IBUPROFEN 400 MG TAB ONE (19:51)
--- NOTE | 2024-04-03 20:10 | EDPHYS ---
Physician Documentation [facility] Name: Geetha Khan Age: 48 yrs Sex: Female : 1975 Arrival Date: 04/03/2024 Time: 19:42 Bed IW1 Private MD: ED Physician Gene Medrano HPI: 04/03 22:36 This 48 yrs old Female presents to ER via EMS with complaints of Chest Pain. sb4 22:36 patient presents with chest pain that is chronic in nature. does not radiate. has not sb4 taken any medications. no n/v/d. no sob. 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 - Infectious Disease History:: Denies. - Social history:: Smoking status: Patient reports the use of cigarette tobacco products, denies chronic smoking, but will smoke occasionally. ROS: 22:36 Constitutional: Negative for fever, chills, and weight loss, sb4 22:36 Cardiovascular: Positive for chest pain, 22:36 All other systems are negative, Exam: 22:36 Constitutional: This is a well developed, well nourished patient who is awake, alert, sb4 and in no acute distress. Head/Face: Normocephalic, atraumatic. Eyes: Extra-ocular motions intact. Periorbital areas with no swelling, redness, or edema. ENT: Mucous membranes moist. Respiratory: No increased work of breathing, no retractions or nasal flaring. Skin: Warm, dry with normal turgor. Normal color with no rashes, no lesions, and no evidence of cellulitis. Vital Signs: 19:49 BP 134 / 68; Pulse 84; Resp 16; Temp 98.2; Pulse Ox 100% ; Weight 68.04 kg; Height 5 me1 ft. 2 in. ; Pain 10/10; 19:49 Body Mass Index 27.44 (68.04 kg, 157.48 cm) me1 19:49 Pain Scale: Adult me1 MDM: 20:00 Medical Screening Exam initiated sb4 22:37 Data reviewed: vital signs, nurses notes, EMS record, EKG, and as a result, I will sb4 discharge patient. Counseling: I had a detailed discussion with the patient and/or guardian regarding the historical points, exam findings, and any diagnostic results supporting the discharge/admit diagnosis, the need for outpatient follow up, a minister assistant, to return to the emergency department if symptoms worsen or persist or if there are any questions or concerns that arise at home. 04/03 19:48 Order name: EKG; Complete Time: 19:48 sb4 04/03 19:48 Order name: EKG - Nurse/Tech; Complete Time: 20:06 sb4 EC:09 Rate is 83 beats/min. Rhythm is regular, Normal Sinus Rhythm. MA interval is normal at sb4 172 msec. QRS interval is normal at 84 msec. QT interval is normal at 382 msec. No Q waves. T waves are Normal. No ST changes noted. Clinical impression: Abnormal EKG without significant change and LVH. Interpreted by me. Reviewed by me. Administered Medications: 19:57 Drug: Ibuprofen PO 800 mg PO once Route: PO; me1 20:38 Follow up: Response: No adverse reaction; Pain is decreased me1 Disposition Summary: 04/03/24 20:09 Discharge Ordered Notes: Location: Home sb4 Problem: an ongoing problem sb4 Symptoms: have improved sb4 Condition: Stable sb4 Diagnosis - Chest pain, unspecified - chronic sb4 Followup: sb4 - With: Josse Olson MD - When: 2 - 3 days - Reason: Recheck today's complaints, Re-evaluation by your physician Discharge Instructions: - Discharge Summary Sheet sb4 - Chronic Pain, Adult sb4 - Nonspecific Chest Pain, Adult, [id number] sb4 Forms: - Patient Portal Instructions sb4 - Leadership Thank You Letter sb4 Addendum: 04/06/2024 07:02 Co-signature as Attending Physician, Gene Medrano MD I reviewed the patient's care r n provided by the Advanced Practice Provider and agree with the diagnosis and treatment plan. Signatures: Gene Medrano MD MD rn Brown, Sophia PAGiseleC PAGiseleC sb4 Eddleman, Nohemy, RN RN me1
--- NOTE | 2024-04-03 20:10 | ER ---
Nurse's Notes [facility] Name: Geetha Khan Age: 48 yrs Sex: Female : 1975 Arrival Date: 04/03/2024 Time: 19:42 Bed IW1 Private MD: Diagnosis: Chest pain, unspecified-chronic Presentation: 04/03 19:45 Chief complaint: EMS states: toned out for chest pain. 10. Coronavirus screen: me1 Vaccine status: Patient reports being unvaccinated. Ebola Screen: No symptoms or risks identified at this time. Initial Sepsis Screen: Does the patient meet any 2 criteria?. Risk Assessment: Do you want to hurt yourself or someone else? Patient reports no desire to harm self or others. Onset of symptoms is unknown. 19:45 Method Of Arrival: EMS: [facility] 19:45 Acuity: CORRINA 3 [facility] 20:37 Initial Sepsis Screen: Does the patient have a suspected source of infection? No. me1 Patient's initial sepsis screen is negative. Triage Assessment: 19:50 General: Appears in no apparent distress. unkempt, well developed, well nourished, me1 Behavior is calm, cooperative, appropriate for age, Reports Left chest pain 10/10. Pain: Complains of pain in anterior aspect of left upper chest Pain does not radiate. Pain currently is 10 out of 10 on a pain scale. Quality of pain is described as heavy, Pain began suddenly, Is continuous. EENT: No signs and/or symptoms were reported regarding the EENT system. Neuro: Level of Consciousness is awake, alert, obeys commands, Oriented to person, place, time, situation, Appropriate for age. Cardiovascular: Reports chest pain, Patient's skin is warm and dry. Respiratory: Airway is patent Respiratory effort is even, unlabored, Respiratory pattern is regular, symmetrical. GI: No signs and/or symptoms were reported involving the gastrointestinal system. : No signs and/or symptoms were reported regarding the genitourinary system. Derm: Skin is intact, is healthy with good turgor, Skin is pink, warm \T\ dry. Musculoskeletal: No signs and/or symptoms reported regarding the musculoskeletal system. 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 - Infectious Disease History:: Denies. - Social history:: Smoking status: Patient reports the use of cigarette tobacco products, denies chronic smoking, but will smoke occasionally. Screenin:51 [facility] ED Fall Risk Assessment (Adult) History of falling in the last 3 months, me1 including since admission No falls in past 3 months (0 pts) Confusion or Disorientation No (0 pts) Intoxicated or Sedated No (0 pts) Impaired Gait Yes (1 pt) Mobility Assist Device Used Yes (1 pt) Altered Elimination Yes (1 pt) Score/Fall Risk Level 0 - 2 = Low Risk Maintained a safe environment. Abuse screen: Denies threats or abuse. Nutritional screening: No deficits noted. Tuberculosis screening: No symptoms or risk factors identified. Assessment: 19:51 General: See triage assessment.. Pain: Complains of pain in chest. me1 Vital Signs: 19:49 BP 134 / 68; Pulse 84; Resp 16; Temp 98.2; Pulse Ox 100% ; Weight 68.04 kg; Height 5 me1 ft. 2 in. ; Pain 10/10; 19:49 Body Mass Index 27.44 (68.04 kg, 157.48 cm) me1 19:49 Pain Scale: Adult me1 ED Course: 19:44 Patient arrived in ED. am2 19:44 Kalli Bradshaw PA-C is PHCP. sb4 19:44 Gene Medrano MD is Attending Physician. sb4 19:46 Triage completed. me1 19:47 Arm band placed on Patient placed in an exam room. me1 19:51 Patient has correct armband on for positive identification. Provided Education on: POC. me1 Verbalized understanding.. 19:51 No provider procedures requiring assistance completed. Patient did not have IV access me1 during this emergency room visit. Patient maintains SpO2 saturation greater than 95% on room air. 20:06 EKG done, by ED staff, reviewed by Kalli Bradshaw PA-C. me1 20:08 Josse Olson MD is Referral Physician. sb4 20:37 Cardiac monitoring not applicable on this patient. me1 Administered Medications: 19:57 Drug: Ibuprofen PO 800 mg PO once Route: PO; me1 20:38 Follow up: Response: No adverse reaction; Pain is decreased me1 Medication: 19:51 VIS not applicable for this client. me1 Outcome: 20:09 Discharge ordered by . sb4 20:37 Discharged to home via wheelchair, with significant other, me1 20:37 Condition: stable 20:37 Discharge instructions given to patient, Instructed on discharge instructions, follow up and referral plans. Demonstrated understanding of instructions, follow-up care, 20:38 Patient left the ED. me1 Signatures: Anayeli Guadarrama am2 Kalli Bradshaw PAGiseleC PA-C sb4 Nohemy Clark, YANETH RN me1 Corrections: (The following items were deleted from the chart) 20:37 19:49 68.04 kg; Height 5 ft. 2 in.; BMI: 27.4; Pain 10, Adult; me1 me1
[2024-04-03 20:42] VITALS: BP 134/68; TEMP 98.2; O2SAT 100
--- NOTE | 2024-04-09 13:11 | EKG ---
Test Date: 2024-04-03 Test Time: 20:04:45 Ophthalmic Technician Apprentice: MEASUREMENT RESULTS: Intervals: Rate: 83 AR: 172 QRSD: 84 QT: 382 QTc: 448 [place]: P: 54 AR: 172 QRS: -3 T: 138 INTERPRETIVE STATEMENTS: Normal sinus rhythm Left ventricular hypertrophy with repolarization abnormality Inferior infarct, age undetermined Abnormal ECG Compared to ECG 04/01/2024 23:02:33 Myocardial infarct finding now present Sinus bradycardia no longer present Electronically Signed On 04-09-24 13:03:10 POWER SAW OPERATOR by Alan Garay
== END 2024-04-03 20:38 | disposition home or self-care (01) ==
LOC: ER 19:42
DX: R07.9 Chest pain, unspecified (principal); I10 Essential (primary) hypertension; F17.210 Nicotine dependence, cigarettes, uncomplicated; I25.2 Old myocardial infarction
CPT/HCPCS: 93005; 99284

== ENCOUNTER 2024-04-04 19:49 | Emergency (ER) | payer OTHER ==
--- NOTE | 2024-04-04 20:21 | ER ---
Nurse's Notes [facility] Name: Geetha Khan Age: 48 yrs Sex: Female : 1975 Arrival Date: 04/04/2024 Time: 19:49 Bed DX4 Private MD: Diagnosis: Chronic chest pain, anxiety Presentation: 04/04 20:07 Chief complaint: Patient states: chest pain and anxiety that started prior to arrival. cp4 Coronavirus screen: Client denies travel out of the [place] in the last 14 days. At this time, the client does not indicate any symptoms associated with coronavirus-19. Ebola Screen: Patient negative for fever greater than or equal to 101.5 degrees Fahrenheit, and additional compatible Ebola Virus Disease symptoms Patient denies exposure to infectious person. Patient denies travel to an Ebola-affected area in the 21 days before illness onset. No symptoms or risks identified at this time. Initial Sepsis Screen: Does the patient meet any 2 criteria? No. Patient's initial sepsis screen is negative. Does the patient have a suspected source of infection? No. Patient's initial sepsis screen is negative. Risk Assessment: Do you want to hurt yourself or someone else? Patient reports no desire to harm self or others. Onset of symptoms was April 04, 2024. 20:07 Method Of Arrival: EMS: [facility] cp4 20:07 Acuity: CORRINA 3 cp4 Triage Assessment: 20:08 General: Appears in no apparent distress. comfortable. General: Behavior is calm, cp4 cooperative, appropriate for age. Pain: Complains of pain in chest. Cardiovascular: Patient's skin is warm and dry. Rhythm is. Historical: - Allergies: 20:08 Aspirin; cp4 20:08 CRANBERRY; cp4 20:08 FISH PRODUCT DERIVATIVES; cp4 20:08 GRAPEFRUIT; cp4 20:08 SHELLFISH; cp4 - PMHx: 20:08 Cerebrovascular accident; Chronic obstructive lung disease; Hypertensive disorder; cp4 Myocardial infarction; Seizure; - Immunization history:: Adult Immunizations not up to date. - Infectious Disease History:: Denies. - Social history:: Smoking status: Patient/guardian denies using tobacco, Stopped _ months ago 1. Screenin:42 [facility] ED Fall Risk Assessment (Adult) History of falling in the last 3 months, vc1 including since admission Yes- fall prone (multiple falls) (3 pts) Confusion or Disorientation No (0 pts) Intoxicated or Sedated No (0 pts) Impaired Gait No (0 pts) Mobility Assist Device Used No (0 pt) Altered Elimination No (0 pt) Score/Fall Risk Level 0 - 2 = Low Risk Oriented to surroundings, Maintained a safe environment, Educated pt \T\ family on fall prevention, incl call for assistance when getting out of bed. Abuse screen: Denies threats or abuse. Nutritional screening: No deficits noted. Tuberculosis screening: No symptoms or risk factors identified. Assessment: 21:44 Reassessment: No changes from previously documented assessment. Patient and/or family vc1 updated on plan of care and expected duration. Pain level reassessed. Patient states feeling better. Vital Signs: 20:08 BP 152 / 105; Pulse 69; Resp 18; Temp 97.5; Pulse Ox 100% ; Weight 68.04 kg; Height 5 cp4 ft. 2 in. ; Pain 10/10; 20:08 Body Mass Index 27.44 (68.04 kg, 157.48 cm) cp4 20:08 Pain Scale: Adult cp4 ED Course: 19:49 Patient arrived in ED. jj6 19:50 Kalli Bradshaw PA-C is [facility]. sb4 19:50 Kye De Anda MD is Attending Physician. sb4 20:08 Triage completed. cp4 20:20 Josse Olson MD is Referral Physician. sb4 21:42 Arm band placed on right wrist. vc1 21:42 No provider procedures requiring assistance completed. Patient did not have IV access vc1 during this emergency room visit. Patient maintains SpO2 saturation greater than 95% on room air. 21:43 Patient has correct armband on for positive identification. Bed in low position. Call vc1 light in reach. Provided Education on: chest pain. Pulse ox on. NIBP on. Administered Medications: 21:12 Drug: Nitroglycerin Sublingual 0.4 mg Sublingual once Route: Sublingual; vc1 21:12 Drug: Acetaminophen PO 650 mg PO once Route: PO; vc1 21:12 Drug: Ibuprofen PO 600 mg PO once Route: PO; vc1 21:12 Drug: LORazepam PO 1 mg PO once Route: PO; vc1 Medication: 21:42 VIS not applicable for this client. vc1 Outcome: 20:20 Discharge ordered by . [email or web address] 21:42 Discharged to home via wheelchair, vc1 21:42 Condition: good 21:42 Discharge instructions given to patient, Instructed on discharge instructions, follow up and referral plans. Demonstrated understanding of instructions, follow-up care, 21:44 Patient left the ED. vc1 Signatures: Bia Garcia jj6 Syeda Bruce RN RN vc1 Kalli Bradshaw PA-C PA-C sb4 Yasmeen Vasquez cp4
--- NOTE | 2024-04-04 20:21 | EDPHYS ---
Physician Documentation [facility] Name: Geetha Khan Age: 48 yrs Sex: Female : 1975 Arrival Date: 04/04/2024 Time: 19:49 Bed DX4 Private MD: ED Physician Kye De Anda HPI: 04/04 20:14 This 48 yrs old Female presents to ER via EMS with complaints of Chest Pain. sb4 20:14 chronic chest pain. states she is in pain all day everyday. has not followed up with sb4 cardiology. states that ibuprofen used to help but isn't helping anymore. is not sure what medications she takes, states her manages them. denies any sob, nausea, vomiting. states she quit smoking about 3 weeks ago which has improved her symptoms. Historical: - Allergies: 20:08 Aspirin; cp4 20:08 CRANBERRY; cp4 20:08 FISH PRODUCT DERIVATIVES; cp4 20:08 GRAPEFRUIT; cp4 20:08 SHELLFISH; cp4 - PMHx: 20:08 Cerebrovascular accident; Chronic obstructive lung disease; Hypertensive disorder; cp4 Myocardial infarction; Seizure; - Immunization history:: Adult Immunizations not up to date. - Infectious Disease History:: Denies. - Social history:: Smoking status: Patient/guardian denies using tobacco, Stopped _ months ago 1. ROS: 20:14 Constitutional: Negative for fever, chills, and weight loss, sb4 20:14 Cardiovascular: Positive for chest pain, 20:14 All other systems are negative, Exam: 20:16 Constitutional: This is a well developed, well nourished patient who is awake, alert, sb4 and in no acute distress. Head/Face: Normocephalic, atraumatic. Eyes: Extra-ocular motions intact. Periorbital areas with no swelling, redness, or edema. ENT: Mucous membranes moist. Cardiovascular: Regular rate and rhythm with a normal S1 and S2. Respiratory: No increased work of breathing, no retractions or nasal flaring. Skin: Warm, dry with normal turgor. Normal color with no rashes, no lesions, and no evidence of cellulitis. Vital Signs: 20:08 BP 152 / 105; Pulse 69; Resp 18; Temp 97.5; Pulse Ox 100% ; Weight 68.04 kg; Height 5 cp4 ft. 2 in. ; Pain 10/10; 20:08 Body Mass Index 27.44 (68.04 kg, 157.48 cm) cp4 20:08 Pain Scale: Adult cp4 MDM: 19:52 Medical Screening Exam initiated sb4 20:20 Data reviewed: vital signs, nurses notes, EMS record, EKG, and as a result, I will sb4 discharge patient. Care significantly affected by the following chronic conditions: Hypertension. Counseling: I had a detailed discussion with the patient and/or guardian regarding the historical points, exam findings, and any diagnostic results supporting the discharge/admit diagnosis, the need for outpatient follow up, for definitive care, a make up worker, to return to the emergency department if symptoms worsen or persist or if there are any questions or concerns that arise at home. Special discussion: Based on the patient's history, exam, and Dx evaluation, there is no indication for emergent intervention or inpatient Tx. It is understood by the patient/guardian that if the Sx's persist or worsen they need to return immediately for re-evaluation. I discussed with the patient their frequent requests for pain medications. Instructions have been given, that in the best interests of the patient, further pain Rx's must come from the patient's PCP or a paint line production supervisor. 04/04 19:52 Order name: EKG; Complete Time: 19:52 sb4 04/04 19:52 Order name: EKG - Nurse/Tech; Complete Time: 20:18 sb4 EC:19 Rate is 67 beats/min. Rhythm is regular, Normal Sinus Rhythm. CO interval is normal at sb4 174 msec. QT interval is normal at 416 msec. No Q waves. T waves are Normal. No ST changes noted. Clinical impression: Abnormal EKG without significant change and LVH. Interpreted by me. Reviewed by me. Administered Medications: 21:12 Drug: Nitroglycerin Sublingual 0.4 mg Sublingual once Route: Sublingual; vc1 21:12 Drug: Acetaminophen PO 650 mg PO once Route: PO; vc1 21:12 Drug: Ibuprofen PO 600 mg PO once Route: PO; vc1 21:12 Drug: LORazepam PO 1 mg PO once Route: PO; vc1 Disposition: 23:40 Co-signature as Attending Physician, Kye De Anda MD I reviewed the patient's care rt provided by the Advanced Practice Provider and agree with the diagnosis and treatment plan. Disposition Summary: 04/04/24 20:20 Discharge Ordered Notes: Location: Home sb4 Problem: an ongoing problem sb4 Symptoms: have improved sb4 Condition: Stable sb4 Diagnosis - Chronic chest pain, anxiety sb4 Followup: sb4 - With: Josse Olson MD - When: 2 - 3 days - Reason: Recheck today's complaints, Re-evaluation by your physician Discharge Instructions: - Discharge Summary Sheet sb4 - Chronic Pain, Adult sb4 Forms: - Patient Portal Instructions sb4 - Leadership Thank You Letter sb4 Signatures: Syeda Bruce RN RN vc1 Kalli Bradshaw PA-C PAHermes sb4 Kye De Anda MD MD rt Potter, Christina cp4
[2024-04-04] MEDS ORDERED: IBUPROFEN 200 MG TAB PO ONE (21:03)
[2024-04-04] MEDS ORDERED: ACETAMINOPHEN 500 MG TAB ONE (21:03)
[2024-04-04] MEDS ORDERED: NITROGLYCERIN 0.4 MG/TAB SL ONE (21:04)
[2024-04-04] MEDS ORDERED: LORAZEPAM 1 MG TABLET ONE (21:10)
[2024-04-04 21:54] VITALS: BP 152/105; TEMP 97.5; O2SAT 100
== END 2024-04-04 21:44 | disposition home or self-care (01) ==
LOC: ER 19:49
DX: R07.9 Chest pain, unspecified (principal); F41.9 Anxiety disorder, unspecified; J44.9 Chronic obstructive pulmonary disease, unspecified; I10 Essential (primary) hypertension; I25.2 Old myocardial infarction; Z87.891 Personal history of nicotine dependence; Z86.73 Personal history of transient ischemic attack (TIA), and cerebral infarction without residual deficits; Z88.8 Allergy status to other drugs, medicaments and biological substances; Z91.013 Allergy to seafood; Z91.018 Allergy to other foods
CPT/HCPCS: 99284

== ENCOUNTER 2024-04-06 19:38 | Emergency (ER) | payer OTHER ==
--- NOTE | 2024-04-06 19:44 | EDPHYS ---
Physician Documentation [facility] Name: Geetha Khan Age: 48 yrs Sex: Female : 1975 Arrival Date: 04/06/2024 Time: 19:38 Bed 7 Private MD: ED Physician Russell Rodriguez HPI: 04/06 19:44 This 48 yrs old Female presents to ER via Unassigned with complaints of chest pain. sb4 19:44 patient presents with complaints of chest pain that is chronic in nature. she is well sb4 known to the ED, this is her 3rd visit in 4 days for same issue. has not taken any medications for the pain. 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 - Post-menopause, Not bm8 Historical: - Allergies: 19:50 Aspirin; bm8 19:50 CRANBERRY; bm8 19:50 FISH PRODUCT DERIVATIVES; bm8 19:50 GRAPEFRUIT; bm8 19:50 SHELLFISH; bm8 - Home Meds: 19:50 amlodipine oral [Active]; atorvastatin oral [Active]; Carbamazepine Oral [Active]; bm8 clopidogrel oral [Active]; lisinopril Oral [Active]; Metoprolol Tartrate Oral [Active]; Nitrostat SL [Active]; quetiapine oral [Active]; - PMHx: 19:50 Cerebrovascular accident; Chronic obstructive lung disease; Hypertensive disorder; bm8 Myocardial infarction; Seizure; - PSHx: 19:50 None; bm8 - Immunization history:: Adult Immunizations up to date. - Infectious Disease History:: Denies. - Social history:: Smoking status: Patient/guardian denies using tobacco. ROS: 19:44 Constitutional: Negative for fever, chills, and weight loss, sb4 19:44 Cardiovascular: Positive for chest pain, 19:44 All other systems are negative, Exam: 19:44 Constitutional: This is a well developed, well nourished patient who is awake, alert, sb4 and in no acute distress. Head/Face: Normocephalic, atraumatic. Eyes: Extra-ocular motions intact. Periorbital areas with no swelling, redness, or edema. ENT: Mucous membranes moist. Respiratory: No increased work of breathing, no retractions or nasal flaring. Skin: Warm, dry with normal turgor. Normal color with no rashes, no lesions, and no evidence of cellulitis. Vital Signs: 19:40 BP 148 / 107; Pulse 84; Resp 18; Temp 97.7; Pulse Ox 100% ; Weight 72.57 kg; Height 0 bm8 ft. 1 in. ; Pain 10/10; 19:40 Body Mass Index 43940.91 (72.57 kg, 5 cm) bm8 19:40 Pain Scale: Adult bm8 MDM: 19:40 Medical Screening Exam initiated sb4 19:44 The patient was not given aspirin in the Emergency Department. Not indicated due to sb4 patient's past medical history. Data reviewed: vital signs, nurses notes, EMS record, EKG, and as a result, I will discharge patient. Counseling: I had a detailed discussion with the patient and/or guardian regarding the historical points, exam findings, and any diagnostic results supporting the discharge/admit diagnosis, the need for outpatient follow up, a data communications engineer. 04/06 19:42 Order name: EKG - Nurse/Tech; Complete Time: 19:55 sb4 EC:48 Rate is 82 beats/min. Rhythm is regular, Normal Sinus Rhythm. MN interval is normal at sb4 166 msec. QRS interval is normal at 82 msec. QT interval is normal at 382 msec. No Q waves. No ST changes noted. Clinical impression: Abnormal EKG without significant change and LVH. Interpreted by me. Reviewed by me. Administered Medications: 19:55 Drug: Acetaminophen PO 1000 mg PO once Route: PO; bm8 19:57 Follow up: Response: No adverse reaction bm8 Disposition Summary: 04/06/24 19:43 Discharge Ordered Notes: Location: Home sb4 Problem: an ongoing problem sb4 Symptoms: are unchanged sb4 Condition: Stable sb4 Diagnosis - Chronic chest pain sb4 Followup: sb4 - With: Josse Olson MD - When: As needed - Reason: Recheck today's complaints, Re-evaluation by your physician Discharge Instructions: - Discharge Summary Sheet sb4 - Chronic Pain, Adult sb4 Forms: - Patient Portal Instructions sb4 - Leadership Thank You Letter sb4 Addendum: 04/08/2024 17:39 I was immediately available for consultation during this patient's visit. I did not e c2 personally see the patient or discuss the patient with the SEGUN. . Signatures: Kalli Bradshaw PA-C PA-C sb4 Russell Rodriguez MD MD ec2 Rene Baca, YANETH RN bm8
[2024-04-06] MEDS ORDERED: ACETAMINOPHEN 500 MG TAB ONE (19:56)
--- NOTE | 2024-04-06 19:58 | ER ---
Nurse's Notes [facility] Name: Geetha Khan Age: 48 yrs Sex: Female : 1975 Arrival Date: 04/06/2024 Time: 19:38 Bed 7 Private MD: Diagnosis: Chronic chest pain Presentation: 04/06 19:40 Chief complaint: Patient states: I have chest pain and anxiety that started today. bm8 Coronavirus screen: Vaccine status: At this time, the client does not indicate any symptoms associated with coronavirus-19. Ebola Screen: Patient negative for fever greater than or equal to 101.5 degrees Fahrenheit, and additional compatible Ebola Virus Disease symptoms Patient denies exposure to infectious person. Patient denies travel to an Ebola-affected area in the 21 days before illness onset. No symptoms or risks identified at this time. 19:40 Method Of Arrival: EMS: [facility] 8 19:40 Initial Sepsis Screen: Does the patient meet any 2 criteria? No. Patient's initial bm8 sepsis screen is negative. Does the patient have a suspected source of infection? No. Patient's initial sepsis screen is negative. Risk Assessment: Do you want to hurt yourself or someone else? Patient reports no desire to harm self or others. Onset of symptoms was April 06, 2024 at 12:00. 19:40 Acuity: CORRINA 3 bm8 Triage Assessment: 19:40 General: Appears in no apparent distress. comfortable, Behavior is calm, cooperative, bm8 appropriate for age. Pain: Complains of pain in chest Pain currently is 10 out of 10 on a pain scale. EENT: No deficits noted. No signs and/or symptoms were reported regarding the EENT system. Neuro: No deficits noted. Level of Consciousness is awake, alert, obeys commands, Oriented to person, place, time, situation, Appropriate for age. 19:40 Cardiovascular: Reports chest pain, Denies diaphoresis, fatigue, lightheadedness, bm8 nausea, palpitations, shortness of breath, syncope, vomiting, Heart tones S1 S2 present Capillary refill < 3 seconds in bilateral fingers Patient's skin is warm and dry. Rhythm is sinus rhythm. Respiratory: Airway is patent Trachea midline Respiratory effort is even, unlabored, Respiratory pattern is regular, symmetrical, Breath sounds are clear bilaterally. GI: No signs and/or symptoms were reported involving the gastrointestinal system. : No signs and/or symptoms were reported regarding the genitourinary system. Derm: No signs and/or symptoms reported regarding the dermatologic system. Musculoskeletal: No signs and/or symptoms reported regarding the musculoskeletal system. 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/A - Post-menopause, Not bm8 Historical: - Allergies: 19:50 Aspirin; bm8 19:50 CRANBERRY; bm8 19:50 FISH PRODUCT DERIVATIVES; bm8 19:50 GRAPEFRUIT; bm8 19:50 SHELLFISH; bm8 - Home Meds: 19:50 amlodipine oral [Active]; atorvastatin oral [Active]; Carbamazepine Oral [Active]; bm8 clopidogrel oral [Active]; lisinopril Oral [Active]; Metoprolol Tartrate Oral [Active]; Nitrostat SL [Active]; quetiapine oral [Active]; - PMHx: 19:50 Cerebrovascular accident; Chronic obstructive lung disease; Hypertensive disorder; bm8 Myocardial infarction; Seizure; - PSHx: 19:50 None; bm8 - Immunization history:: Adult Immunizations up to date. - Infectious Disease History:: Denies. - Social history:: Smoking status: Patient/guardian denies using tobacco. Screenin:[facility] ED Fall Risk Assessment (Adult) History of falling in the last 3 months, bm8 including since admission No falls in past 3 months (0 pts) Confusion or Disorientation No (0 pts) Intoxicated or Sedated No (0 pts) Impaired Gait Yes (1 pt) Mobility Assist Device Used Yes (1 pt) Altered Elimination Yes (1 pt) Score/Fall Risk Level 3 or more points = High Risk Oriented to surroundings, Maintained a safe environment, Educated pt \T\ family on fall prevention, incl call for assistance when getting out of bed, Assessed \T\ reinforced patient's understanding of fall precautions, Hourly rounding (assess needs \T\ fall precautionary measures) done, Used ambulatory aids as needed (educated on \T\ assisted with), Used gait belt as appropriate Implemented a Fall Risk Plan of Care. Abuse screen: Denies threats or abuse. Nutritional screening: No deficits noted. Tuberculosis screening: No symptoms or risk factors identified. Assessment: 19:53 Reassessment: Patient appears in no apparent distress at this time. see triage bm8 assessment. 19:57 Pain: Pain does not radiate. Pain began 4 hours ago. bm8 Vital Signs: 19:40 BP 148 / 107; Pulse 84; Resp 18; Temp 97.7; Pulse Ox 100% ; Weight 72.57 kg; Height 0 bm8 ft. 1 in. ; Pain 10/10; 19:40 Body Mass Index 96873.91 (72.57 kg, 5 cm) bm8 19:40 Pain Scale: Adult bm8 ED Course: 19:40 Patient arrived in ED. rv1 19:40 Kalli Bradshaw PA-C is PHCP. sb4 19:40 Russell Rodriguez MD is Attending Physician. sb4 19:40 Arm band placed on right wrist. bm8 19:43 Josse Olson MD is Referral Physician. sb4 19:48 Rene Baca, RN is Primary Nurse. bm8 19:49 Triage completed. bm8 19:53 Patient has correct armband on for positive identification. Provided Education on: post bm8 er care. Client placed on continuous cardiac and pulse oximetry monitoring. NIBP monitoring applied. supervisor winding department on. Pulse ox on. NIBP on. Door closed. Noise minimized. Warm blanket given. Pillow given. Verbal reassurance given. Head of bed elevated. 19:53 No provider procedures requiring assistance completed. EKG done, by ED staff, reviewed bm8 by Kalli Bradshaw PA-C. Patient did not have IV access during this emergency room visit. Patient maintains SpO2 saturation greater than 95% on room air. Administered Medications: 19:55 Drug: Acetaminophen PO 1000 mg PO once Route: PO; bm8 19:57 Follow up: Response: No adverse reaction bm8 Medication: 19:53 VIS not applicable for this client. bm8 Outcome: 19:43 Discharge ordered by . sb4 19:53 Discharged to home ambulatory, bm8 19:53 Condition: stable 19:53 Condition: stable 19:53 Discharge instructions given to patient, Instructed on discharge instructions, follow up and referral plans. Demonstrated understanding of instructions, follow-up care, 19:58 Patient left the ED. bm8 Signatures: Kalli Bradshaw PA-C PA-C sb4 Autumn Rodriguez rv1 Rene Baca, RN RN bm8
[2024-04-06 21:10] VITALS: BP 148/107; TEMP 97.7; O2SAT 100
--- NOTE | 2024-04-09 13:01 | EKG ---
Test Date: 2024-04-06 Test Time: 19:44:44 Digital Sales Representative: BEN MEASUREMENT RESULTS: Intervals: Rate: 82 LA: 166 QRSD: 82 QT: 382 QTc: 446 [place]: P: 33 LA: 166 QRS: 5 T: 153 INTERPRETIVE STATEMENTS: Normal sinus rhythm Left ventricular hypertrophy with repolarization abnormality Abnormal ECG Compared to ECG 04/04/2024 20:16:39 No significant changes Electronically Signed On 04-09-24 12:58:53 CORE FEEDER by Alan Garay
== END 2024-04-06 19:58 | disposition home or self-care (01) ==
LOC: ER 19:38
DX: R07.9 Chest pain, unspecified (principal); I10 Essential (primary) hypertension; I25.2 Old myocardial infarction
CPT/HCPCS: 93005; 99284

== ENCOUNTER 2024-04-07 20:05 | Emergency (ER) | payer OTHER ==
[2024-04-07] MEDS ORDERED: KETOROLAC 10 MG TAB ONE (20:14)
[2024-04-07] MEDS ORDERED: DIAZEPAM 5 MG TABLET ONE (20:15)
[2024-04-07] MEDS ORDERED: HYDROCODONE/APAP 5/325 MG TAB ONE (20:15)
--- NOTE | 2024-04-07 20:32 | EDPHYS ---
Physician Documentation [facility] Name: Geetha Khan Age: 48 yrs Sex: Female : 1975 Arrival Date: 04/07/2024 Time: 20:05 Bed 18 Private MD: ED Physician Uriel Cannon HPI: 04/07 20:09 This 48 yrs old Female presents to ER via Unassigned with complaints of sp4 Anxiety . 20:16 48-year-old female with history of hemorrhagic CVA and left-sided hemiparesis presents sp4 with complaint of acute anxiety. Pill show and reports concurrent chest pain secondary to anxiety . 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 - Infectious Disease History:: Denies. - Social history:: Smoking status: Patient/guardian denies using tobacco, Stopped _ months ago 1. - Family history:: not pertinent. ROS: 20:21 Constitutional: Negative for fever, chills, and weight loss, positive for anxiety and sp4 chest discomfort Exam: 20:32 Constitutional: This is a well developed, patient who is awake, alert, patient is sp4 physically deconditioned female who has chronic left-sided hemiparesis. Head/Face: Normocephalic, atraumatic. Eyes: Pupils equal round and reactive to light, extra-ocular motions intact. Lids and lashes normal. Conjunctiva and sclera are not injected. Cornea within normal limits. Periorbital areas with no swelling, redness, or edema. ENT: Nares patent. No nasal discharge, no septal abnormalities noted. Tympanic membranes are normal and external auditory canals are clear. Oropharynx with no redness, swelling, or masses, exudates, or evidence of obstruction, uvula midline. Mucous membranes moist. Neck: Trachea midline, no thyromegaly or masses palpated, and no cervical lymphadenopathy. Supple, full range of motion without nuchal rigidity, or vertebral point tenderness. Chest/axilla: Normal chest wall appearance and motion. Nontender with no deformity. No lesions are appreciated. Cardiovascular: Regular rate and rhythm with a normal S1 and S2. No gallops, murmurs, or rubs. Normal PMI, no JVD. No pulse deficits. Respiratory: Lungs have equal breath sounds bilaterally, clear to auscultation and percussion. No rales, rhonchi or wheezes noted. No increased work of breathing, no retractions or nasal flaring. Abdomen/GI: Soft, with normal bowel sounds. No distension or tympany. No guarding or rebound. No evidence of tenderness throughout. Back: No spinal tenderness. No costovertebral tenderness. Skin: Warm, dry with normal turgor. Normal color with no rashes, no lesions, and no evidence of cellulitis. MS/ Extremity: Pulses equal, no cyanosis. Chronic contractures and weakness left side from chronic left-sided hemiparesis. Neuro: Awake and alert, GCS 15, oriented to person, place, time, and situation. Chronic left-sided hemiparesis from prior CVA. Exam unchanged from prior. Psych: Awake, alert, with orientation to person, place and time. Behavior, mood, and affect are within normal limits Vital Signs: 20:10 BP 170 / 108; Pulse 74; Resp 15; Temp 97.7(O); Pulse Ox 100% on R/A; Weight 72.57 kg; cm10 Height 5 ft. 2 in. ; Pain 10/10; 20:41 BP 157 / 88; Pulse 75; Resp 18; Pulse Ox 100% on R/A; rg5 20:10 Body Mass Index 29.26 (72.57 kg, 157.48 cm) cm10 20:10 Pain Scale: Adult cm10 Mariluz Coma Score: 20:32 Eye Response: spontaneous(4). Motor Response: obeys commands(6). Verbal Response: sp4 oriented(5). Total: 15. MDM: 20:11 Medical Screening Exam initiated sp4 20:33 Differential diagnosis: drug withdrawal. acute psychotic break, depression, psychosis sp4 secondary to non-compliance. Data reviewed: vital signs, nurses notes, EMS record, old medical records. Consideration of Admission/Observation Escalation of care including admission/observation considered. ED course: Patient is well-known to me. She has got anxiety that is very prominent. History of multiple visits to the emergency department for the similar complaint. Anxiety was treated acutely with p.o. Valium. Patient feels much better. Stable for discharge home. Further workup was not indicated. Administered Medications: 20:17 Drug: Ketorolac PO 10 mg PO once Route: PO; rg5 20:33 Follow up: Response: No adverse reaction; Pain is decreased rg5 20:17 Drug: HYDROcodone-acetaminophen PO 5 mg-325 mg 1 tabs PO once Route: PO; rg5 20:33 Follow up: Response: No adverse reaction; Pain is decreased rg5 20:17 Drug: Diazepam PO 5 mg PO once Route: PO; rg5 20:33 Follow up: Response: No adverse reaction rg5 Disposition Summary: 04/07/24 20:31 Discharge Ordered Notes: Location: Home sp4 Problem: new sp4 Symptoms: have improved sp4 Condition: Stable sp4 Diagnosis - Acute anxiety attack sp4 Followup: sp4 - With: Private Physician - When: As needed - Reason: Recheck today's complaints Discharge Instructions: - Discharge Summary Sheet sp4 - Managing Anxiety, Adult sp4 Forms: - Patient Portal Instructions sp4 Signatures: Uriel Cannon MD MD sp4 Kelsey Khan, RN RN cm10 Hakan Crowley RN RN rg5
--- NOTE | 2024-04-07 20:32 | ER ---
Nurse's Notes [facility] Name: Geetha Khan Age: 48 yrs Sex: Female : 1975 Arrival Date: 04/07/2024 Time: 20:05 Bed 18 Private MD: Diagnosis: Acute anxiety attack Presentation: 04/07 20:10 Chief complaint: EMS states: Called to patient's home for chest pain and anxiety onset cm10 today. Coronavirus screen: Client denies travel out of the [place] in the last 14 days. Ebola Screen: Patient denies travel to an Ebola-affected area in the 21 days before illness onset. Initial Sepsis Screen: Does the patient meet any 2 criteria? No. Patient's initial sepsis screen is negative. Does the patient have a suspected source of infection? No. Patient's initial sepsis screen is negative. Risk Assessment: Do you want to hurt yourself or someone else? Patient reports no desire to harm self or others. Onset of symptoms was April 07, 2024. 20:10 Method Of Arrival: EMS: [facility] cm10 20:10 Acuity: CORRINA 3 cm10 Triage Assessment: 20:13 General: Appears in no apparent distress. uncomfortable, Behavior is calm, anxious. cm10 Pain: Complains of pain in chest Pain does not radiate. Pain currently is 10 out of 10 on a pain scale. Quality of pain is described as sharp, shooting, stabbing. Neuro: No deficits noted. Level of Consciousness is awake, alert, obeys commands, Oriented to person, place, time, situation, Appropriate for age. 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 - Infectious Disease History:: Denies. - Social history:: Smoking status: Patient/guardian denies using tobacco, Stopped _ months ago 1. - Family history:: not pertinent. Screenin:42 [facility] ED Fall Risk Assessment (Adult) History of falling in the last 3 months, rg5 including since admission No falls in past 3 months (0 pts) Confusion or Disorientation No (0 pts) Intoxicated or Sedated No (0 pts) Impaired Gait Yes (1 pt) Mobility Assist Device Used Yes (1 pt) Altered Elimination Yes (1 pt) Score/Fall Risk Level 3 or more points = High Risk Oriented to surroundings, Maintained a safe environment, Hourly rounding (assess needs \T\ fall precautionary measures) done. Abuse screen: Denies threats or abuse. Nutritional screening: No deficits noted. Tuberculosis screening: No symptoms or risk factors identified. Assessment: 20:42 Reassessment: Patient and/or family updated on plan of care and expected duration. Pain rg5 level reassessed. Patient states symptoms have improved. Vital Signs: 20:10 BP 170 / 108; Pulse 74; Resp 15; Temp 97.7(O); Pulse Ox 100% on R/A; Weight 72.57 kg; cm10 Height 5 ft. 2 in. ; Pain 10/10; 20:41 BP 157 / 88; Pulse 75; Resp 18; Pulse Ox 100% on R/A; rg5 20:10 Body Mass Index 29.26 (72.57 kg, 157.48 cm) cm10 20:10 Pain Scale: Adult cm10 [place] Coma Score: 20:32 Eye Response: spontaneous(4). Motor Response: obeys commands(6). Verbal Response: sp4 oriented(5). Total: 15. ED Course: 20:06 Patient arrived in ED. rv1 20:08 Uriel Cannon MD is Attending Physician. sp4 20:12 Triage completed. cm10 20:12 Hakan Crowley, YANETH is Primary Nurse. rg5 20:13 Arm band placed on right wrist. Patient placed in an exam room, on a stretcher. cm10 20:42 Patient has correct armband on for positive identification. Bed in low position. Call rg5 light in reach. Provided Education on: post er care. Door closed. Noise minimized. Verbal reassurance given. 20:42 No provider procedures requiring assistance completed. Patient did not have IV access rg5 during this emergency room visit. Administered Medications: 20:17 Drug: Ketorolac PO 10 mg PO once Route: PO; rg5 20:33 Follow up: Response: No adverse reaction; Pain is decreased rg5 20:17 Drug: HYDROcodone-acetaminophen PO 5 mg-325 mg 1 tabs PO once Route: PO; rg5 20:33 Follow up: Response: No adverse reaction; Pain is decreased rg5 20:17 Drug: Diazepam PO 5 mg PO once Route: PO; rg5 20:33 Follow up: Response: No adverse reaction rg5 Medication: 20:42 VIS not applicable for this client. rg5 Outcome: 20:31 Discharge ordered by . laurie 20:42 Discharged to home via wheelchair, rg5 20:42 Condition: stable 20:42 Discharge instructions given to patient, 20:50 Patient left the ED. rg5 Signatures: Autumn Rodriguez rv1 Uriel Cannon MD MD sp4 Kelsey Khan RN RN cm10 Hakan Crowley RN RN rg5
[2024-04-07 21:15] VITALS: TEMP 97.7; O2SAT 100
[2024-04-07 21:20] VITALS: BP 157/88
== END 2024-04-07 20:50 | disposition home or self-care (01) ==
LOC: ER 20:05
DX: F41.0 Panic disorder [episodic paroxysmal anxiety] (principal); I69.954 Hemiplegia and hemiparesis following unspecified cerebrovascular disease affecting left non-dominant side; I25.2 Old myocardial infarction; I10 Essential (primary) hypertension; J44.9 Chronic obstructive pulmonary disease, unspecified; Z91.013 Allergy to seafood; Z91.018 Allergy to other foods; Z88.6 Allergy status to analgesic agent
CPT/HCPCS: 99283

== ENCOUNTER 2024-04-08 18:55 | Emergency (ER) | payer OTHER ==
[2024-04-08] MEDS ORDERED: hydrOXYzine HCL 25 MG TAB ONE (19:29)
--- NOTE | 2024-04-08 19:40 | ER ---
Nurse's Notes [facility] Name: Geetha Khan Age: 48 yrs Sex: Female : 1975 Arrival Date: 04/08/2024 Time: 18:55 Bed 8 Private MD: Diagnosis: Chest pain, unspecified Presentation: 04/08 19:03 Chief complaint: Patient states: I have chest pain and anxiety that began this mornign. bm8 Coronavirus screen: At this time, the client does not indicate any symptoms associated with coronavirus-19. Ebola Screen: Patient negative for fever greater than or equal to 101.5 degrees Fahrenheit, and additional compatible Ebola Virus Disease symptoms Patient denies exposure to infectious person. Patient denies travel to an Ebola-affected area in the 21 days before illness onset. No symptoms or risks identified at this time. Initial Sepsis Screen: Does the patient meet any 2 criteria? No. Patient's initial sepsis screen is negative. Does the patient have a suspected source of infection? No. Patient's initial sepsis screen is negative. Risk Assessment: Do you want to hurt yourself or someone else? Patient reports no desire to harm self or others. Onset of symptoms was April 08, 2024 at 09:00. 19:03 Method Of Arrival: EMS: [facility] bm8 19:03 Acuity: CORRINA 2 bm8 19:08 Care prior to arrival: Medication(s) given: Tylenol, 1000 mg, \T\1800. bm8 Triage Assessment: 19:04 General: Appears in no apparent distress. comfortable, Behavior is calm, cooperative, bm8 appropriate for age. Pain: Complains of pain in chest Pain currently is 10 out of 10 on a pain scale. Quality of pain is described as aching. EENT: No deficits noted. No signs and/or symptoms were reported regarding the EENT system. Neuro: Level of Consciousness is awake, alert, obeys commands, Oriented to person, place, time, situation, Appropriate for age pt has left side defecits from previous CVA. Cardiovascular: Reports chest pain, Heart tones S1 S2 present Capillary refill < 3 seconds in bilateral fingers Patient's skin is warm and dry. Rhythm is sinus rhythm. Respiratory: Airway is patent Trachea midline Respiratory effort is even, unlabored, Respiratory pattern is regular, symmetrical, Breath sounds are clear bilaterally. GI: No signs and/or symptoms were reported involving the gastrointestinal system. : No signs and/or symptoms were reported regarding the genitourinary system. Derm: No signs and/or symptoms reported regarding the dermatologic system. Musculoskeletal: No signs and/or symptoms reported regarding the musculoskeletal system. 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 - Infectious Disease History:: Denies. - Social history:: Smoking status: Patient/guardian denies using tobacco, Stopped _ months ago 2. Screenin:06 [facility] ED Fall Risk Assessment (Adult) History of falling in the last 3 months, bm8 including since admission No falls in past 3 months (0 pts) Confusion or Disorientation No (0 pts) Intoxicated or Sedated No (0 pts) Impaired Gait Yes (1 pt) Mobility Assist Device Used Yes (1 pt) Altered Elimination Yes (1 pt) Score/Fall Risk Level 3 or more points = High Risk Oriented to surroundings, Maintained a safe environment, Educated pt \T\ family on fall prevention, incl call for assistance when getting out of bed, Assessed \T\ reinforced patient's understanding of fall precautions, Provided non-skid footwear, Used ambulatory aids as needed (educated on \T\ assisted with), Used gait belt as appropriate Implemented a Fall Risk Plan of Care, Apply high fall risk patient identification: yellow non skid footwear/ fall signage. Abuse screen: Denies threats or abuse. Nutritional screening: No deficits noted. Tuberculosis screening: No symptoms or risk factors identified. Assessment: 19:06 Reassessment: see triage assessment. bm8 19:06 Pain: Pain does not radiate. Pain began 4 hours ago. bm8 Vital Signs: 19:03 BP 146 / 95; Pulse 93; Resp 18; Temp 97.8; Pulse Ox 100% ; Weight 72.57 kg; Height 5 bm8 ft. 2 in. ; Pain 10/10; 19:03 Body Mass Index 29.26 (72.57 kg, 157.48 cm) bm8 19:03 Pain Scale: Adult bm8 [place] Coma Score: 19:06 Eye Response: spontaneous(4). Motor Response: obeys commands(6). Verbal Response: bm8 oriented(5). Total: 15. ED Course: 19:03 Patient arrived in ED. ec2 19:03 Rene Baca, RN is Primary Nurse. bm8 19:04 Kathy Kerns [facility]-C [facility]. kb 19:04 Russell Rodriguez MD is Attending Physician. kb 19:04 Triage completed. bm8 19:04 Arm band placed on right wrist. bm8 19:06 Patient has correct armband on for positive identification. Bed in low position. Call bm8 light in reach. Side rails up X2. Client placed on continuous cardiac and pulse oximetry monitoring. NIBP monitoring applied. manager monitoring on. Pulse ox on. NIBP on. Door closed. Noise minimized. Pillow given. Verbal reassurance given. Head of bed elevated. 19:06 EKG done, by ED staff, reviewed by Russell Rodriguez MD. Patient maintains SpO2 saturation bm8 greater than 95% on room air. 19:06 No provider procedures requiring assistance completed. bm8 19:46 Provided Education on: post er care. bm8 19:46 Patient did not have IV access during this emergency room visit. ay Administered Medications: 19:33 Drug: hydrOXYzine PO 25 mg PO once Route: PO; bm8 20:08 Follow up: Response: No adverse reaction bm8 Medication: 19:06 VIS not applicable for this client. bm8 Outcome: 19:40 Discharge ordered by . kb 19:47 Discharged to home via wheelchair, ay 19:47 Condition: stable 19:47 Discharge instructions given to patient, Instructed on discharge instructions, follow up and referral plans. Demonstrated understanding of instructions, follow-up care, 19:54 Patient left the ED. ay Signatures: Kathy Kerns FNP-C FNP-Ckb Corral, Edwin, MD MD 2 Rene Baca, RN RN bm8 Sindy Obregon RN RN ay
--- NOTE | 2024-04-08 19:40 | EDPHYS ---
Physician Documentation [facility] Name: Geetha Khan Age: 48 yrs Sex: Female : 1975 Arrival Date: 04/08/2024 Time: 18:55 Bed 8 Private MD: ED Physician Russell Rodriguez HPI: 04/08 23:02 This 48 yrs old Female presents to ER via EMS with complaints of Chest Pain, Anxiety. kb 23:02 Pt is a 48 year old female who presents for anxiety and chest pain that started this kb morning. States the pain is similar to pain she has had several times in the past. . 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 - Infectious Disease History:: Denies. - Social history:: Smoking status: Patient/guardian denies using tobacco, Stopped _ months ago 2. ROS: 23:01 Constitutional: As per HPI kb Exam: 23:01 Constitutional: This is a well developed, well nourished patient who is awake, alert, kb and in no acute distress. Head/Face: Normocephalic, atraumatic. ENT: Moist Mucous membranes Cardiovascular: Regular rate Respiratory: Respirations even and unlabored. No increased work of breathing. Talking in full sentences Abdomen/GI: Soft, non-tender. No distention Neuro: Awake and alert, GCS 15, oriented to person, place, time, and situation. 23:21 ECG was reviewed by the Attending Physician. kb Vital Signs: 19:03 BP 146 / 95; Pulse 93; Resp 18; Temp 97.8; Pulse Ox 100% ; Weight 72.57 kg; Height 5 bm8 ft. 2 in. ; Pain 10/10; 19:03 Body Mass Index 29.26 (72.57 kg, 157.48 cm) bm8 19:03 Pain Scale: Adult bm8 [place] Coma Score: 19:06 Eye Response: spontaneous(4). Motor Response: obeys commands(6). Verbal Response: bm8 oriented(5). Total: 15. MDM: 19:04 Medical Screening Exam initiated kb 23:01 Differential diagnosis: arrhythmia, acute mi, anxiety. Data reviewed: vital signs, kb nurses notes. Test considered but Not performed: Labs: cbc, cmp and troponin considered but pain and anxiety is the same as previous episodes. X-ray: chest xray considered but pain is similar to chronic chest pain that pt has been seen for several times in the past. Historians other than the Patient: EMS: [facility]. Counseling: I had a detailed discussion with the patient and/or guardian regarding the historical points, exam findings, and any diagnostic results supporting the discharge/admit diagnosis, the need for outpatient follow up, a family practitioner, to return to the emergency department if symptoms worsen or persist or if there are any questions or concerns that arise at home. 04/08 19:07 Order name: EKG - Nurse/Tech; Complete Time: 19:12 kb EC:21 Rate is 88 beats/min. Rhythm is regular. QRS Johnson is Normal. MI interval is normal at kb 178 msec. QRS interval is normal at 82 msec. QT interval is normal at 450 msec. Administered Medications: 19:33 Drug: hydrOXYzine PO 25 mg PO once Route: PO; bm8 20:08 Follow up: Response: No adverse reaction bm8 Disposition Summary: 04/08/24 19:40 Discharge Ordered Notes: Location: Home kb Condition: Stable kb Diagnosis - Chest pain, unspecified kb Followup: kb - With: Emergency Department - When: As needed - Reason: Worsening of condition Followup: kb - With: Private Physician - When: 2 - 3 days - Reason: Recheck today's complaints, Continuance of care, Re-evaluation by your physician Discharge Instructions: - Discharge Summary Sheet kb - Nonspecific Chest Pain, Adult, [id number] kb Forms: - Medication Reconciliation Form kb - Antibiotic Education kb - Prescription Opioid Use kb - Patient Portal Instructions kb - Leadership Thank You Letter kb Signatures: Kathy Kerns FNP-C FNP-Ckb McDonald, Brad, RN RN bm8
[2024-04-08 23:28] VITALS: BP 146/95; TEMP 97.8; O2SAT 100
== END 2024-04-08 19:54 | disposition home or self-care (01) ==
LOC: ER 18:55
DX: R07.9 Chest pain, unspecified (principal); F41.9 Anxiety disorder, unspecified; I10 Essential (primary) hypertension; Z86.73 Personal history of transient ischemic attack (TIA), and cerebral infarction without residual deficits
CPT/HCPCS: 99284

== ENCOUNTER 2024-04-09 19:32 | Observation (INO) | payer OTHER ==
--- NOTE | 2024-04-09 20:23 | RAD REPORT ---
EXAM: CT Ct Stroke Brain Wo Cont HISTORY: STROKE ALERT COMPARISON: 03/29/2024 TECHNIQUE: Multiple contiguous axial images were obtained for a CT of the brain without contrast. Sag ittal and coronal reformats were performed. One or more of the following dose reduction techniques were used: Automated exposure control, adjus tment of the mA and kV according to patient size, and iterative reconstruction. Unless otherwise specified, incidental findings do not require dedicated imaging follow-up. FINDINGS: No evidence of hydrocephalus, intracranial hemorrhage, or extra-axial fluid collection. Encephalomalacia centered on the right centrum semiovale bowel, right subinsular region, and right pe ritrigonal and periventricular temporal white matter. Findings are compatible with sequelae of remote ischemia. Mineralization the region of the right lentiform nucleus and right insula again seen . Right lateral ventricle expected dilation again seen. The calvarium is intact. The visualized paranasal sinuses and mastoid air cells are essentially clear . IMPRESSION: No evidence of acute intracranial abnormality. Chronic findings as above.
--- NOTE | 2024-04-09 20:34 | RAD REPORT ---
EXAMINATION: ONE VIEW CHEST XR CLINICAL INDICATION: Female, 48 years old.,PAIN TECHNIQUE: Frontal chest projection is submitted. Examination is limited by patient positioning and t echnique. COMPARISON: 04/01/2024 FINDINGS: The lungs are well inflated and clear. No pneumothorax or sizable effusion. The heart is normal in s ize. Mediastinal contours are unremarkable. IMPRESSION: No acute intrathoracic abnormalities.
[2024-04-09 23:41] LABS: Absolute Basophils 0.1 K/uL (0-0.5); Absolute Lymphocytes (CBC) 2.6 K/uL (0.7-4.9); Absolute Monocytes 0.7 K/uL (0.1-1.3); Absolute Neutrophil 6.6 K/uL (1.8-8.0); Basophils % 0.6 % (0-1.3); Eosinophils % 0.1 % (0-4.4); Hematocrit 30.6 % (36.0-45.0); Hemoglobin 10.7 g/dL (12.0-15.0); Lymphocytes % 26.3 % (15.3-44.8); MCH 33.9 pg (27.0-35.0); MCHC 34.8 g/dL (32.0-36.0); MCV 97.3 fL (80-100); MPV 7.3 fL (7.6-11.3); Monocytes % 7.3 % (3.3-12.3); Neutrophils % 65.7 % (41.7-73.7); Nucleated Red Blood Cells % 0.1 % (0-0); Platelets 282 thou/uL (152-406); RBC Red Blood Cell Count 3.15 M/uL (3.86-4.86); Red Cell Distribution Width 12.7 % (12.1-15.2)
[2024-04-09 23:45] LABS: PT Prothrombin Time 10.8 SECONDS (9.4-12.5); PTT, Activated Partial Thromb 29.3 SECONDS (24.3-36.9); Protime INR 1.03
[2024-04-09 23:50] LABS: Anion Gap 9.3 mEq/L (5.0-15.0); Potassium 3.3 mEq/L (3.5-5.1)
[2024-04-09 23:54] LABS: Troponin High Sensitivity 81.7 pg/mL (<58.9)
--- NOTE | 2024-04-09 23:58 | EDPHYS ---
Physician Documentation [facility] Name: Geetha Khan Age: 48 yrs Sex: Female : 1975 Arrival Date: 04/09/2024 Time: 19:32 Bed 15 Private MD: ED Physician Gene Medrano HPI: 04/09 20:14 This 48 yrs old Female presents to ER via EMS with complaints of Chest Pain. rn 20:14 The patient or guardian reports chest pain that is located primarily in the substernal rn area. 20:15 Patient arrived at 1930, prior to my shift, by EMS, for chest pain and left-sided rn numbness. 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 Denies previous numbness. Patient reports symptoms started 1 hour prior to arrival but upon my arrival has completely resolved. Nursing and previous physician report only finding was left-sided numbness, NIH was 2, upon my arrival NIH of 0. Patient reports having chest pain and feeling anxious. Patient seen multiple times for chest pain and anxiety and patient feels the same.. 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 - Infectious Disease History:: Denies. - Social history:: Smoking status: Patient denies any tobacco usage or history of. - Family history:: not pertinent. - Hospitalizations: : No recent hospitalization is reported. ROS: 20:15 Constitutional: Negative for fever, chills, and weight loss, Eyes: Negative for injury, rn pain, redness, and discharge, Neck: Negative for injury, pain, and swelling, Cardiovascular: Positive for chest pain Respiratory: Negative for shortness of breath, cough, wheezing, and pleuritic chest pain, Abdomen/GI: Negative for abdominal pain, nausea, vomiting, diarrhea, and constipation, MS/Extremity: Negative for injury and deformity, Neuro: Negative for headache, negative for new weakness, no current numbness or tingling Exam: 20:15 Constitutional: This is a well developed, well nourished patient who is awake, alert, rn and in no acute distress. Head/Face: Normocephalic, atraumatic. Cardiovascular: Regular rate and rhythm. No pulse deficits. Respiratory: No increased work of breathing, no retractions or nasal flaring. Abdomen/GI: Soft, non-tender MS/ Extremity: Pulses equal, no cyanosis. Normal sensation throughout and equal bilaterally. Left-sided weakness involving upper and lower extremity, normal compared to her baseline. No new neurological findings. Neuro: Awake and alert, GCS 15, oriented to person, place, time, and situation. Cranial nerves II-XII grossly intact. Motor strength 5/5 in all extremities. Sensory grossly intact. Cerebellar exam normal. Normal gait. 21:28 ECG was reviewed by the Attending Physician. rn Vital Signs: 19:41 BP 150 / 103; Pulse 77; Resp 16; Temp 98.7(O); Pulse Ox 100% on R/A; Weight 53.52 kg; jb4 20:30 BP 161 / 113; Pulse 76; Resp 16; Pulse Ox 100% ; jb4 20:45 BP 158 / 114; Pulse 72; Resp 16; Pulse Ox 100% on R/A; jb4 21:00 BP 167 / 109; Pulse 75; Resp 16; Pulse Ox 100% on R/A; jb4 21:15 BP 154 / 109; Pulse 71; Resp 16; Pulse Ox 100% on R/A; jb4 21:30 BP 154 / 109; Pulse 71; Resp 16; Pulse Ox 100% on R/A; jb4 21:45 BP 158 / 102; Pulse 77; Resp 16; Pulse Ox 96% on R/A; jb4 22:00 BP 151 / 102; Pulse 75; Resp 16; Pulse Ox 98% on R/A; jb4 22:15 BP 155 / 105; Pulse 78; Resp 16; Pulse Ox 98% on R/A; jb4 22:30 BP 157 / 105; Pulse 88; Resp 16; Pulse Ox 97% on R/A; jb4 22:45 BP 132 / 109; Pulse 76; Resp 16; Pulse Ox 100% on R/A; jb4 23:00 BP 133 / 94; Pulse 80; Resp 16; Pulse Ox 99% on R/A; jb4 04/10 01:12 BP 135 / 96; Pulse 77; Resp 18 S; Pulse Ox 98% on R/A; br2 NIH Stroke Scale Scores: 04/09 19:38 NIHSS Score: 2 jb4 20:00 NIHSS Score: 0 jb4 20:14 NIHSS Score: 0 rn 22:00 NIHSS Score: 0 jb4 Trauma Score (Adult): 20:30 Eye Response: spontaneous(1); Verbal Response: oriented(1); Motor Response: obeys jb4 commands(2); Systolic BP: > 89 mm Hg(4); Respiratory Rate: 10 to 29 per min(4); Mariluz Score: 15; Trauma Score: 12 22:00 Eye Response: spontaneous(1); Verbal Response: oriented(1); Motor Response: obeys jb4 commands(2); Systolic BP: > 89 mm Hg(4); Respiratory Rate: 10 to 29 per min(4); Mariluz Score: 15; Trauma Score: 12 23:00 Eye Response: spontaneous(1); Verbal Response: oriented(1); Motor Response: obeys jb4 commands(2); Systolic BP: > 89 mm Hg(4); Respiratory Rate: 10 to 29 per min(4); Mariluz Score: 15; Trauma Score: 12 MDM: 20:00 Medical Screening Exam initiated rn 20:15 ED course: Patient is not TNK candidate due to resolution of symptoms. Still having rn chest pain and anxiety but no focal neurological deficit.. 20:23 Discussion of test interpretation with radiology: I had a discussion with international organizer regarding a test interpretation. Discussed case and images with radiologist, Dr. Miranda, reports no acute findings on CT head.. 23:56 Differential diagnosis: acute myocardial infarction, acute pericarditis, anxiety, rn coronary artery disease costochondritis, pleurisy, pneumothorax, stable angina. The patient was given aspirin in the Emergency Department. Data reviewed: vital signs, nurses notes, lab test result(s), EKG, radiologic studies, plain films, and as a result, I will admit patient. Consideration of Admission/Observation Patient was admitted/placed on observation. Escalation of care including admission/observation considered. Counseling: I had a detailed discussion with the patient and/or guardian regarding the historical points, exam findings, and any diagnostic results supporting the discharge/admit diagnosis, lab results, radiology results, the need for further work-up and treatment in the hospital. 04/09 19:59 Order name: Basic Metabolic Panel; Complete Time: 23:55 04/09 19:59 Order name: CBC with Diff; Complete Time: 23:54 04/09 19:59 Order name: High Sensitivity Troponin; Complete Time: 23:55 04/09 19:59 Order name: Protime (+inr); Complete Time: 23:48 04/09 19:59 Order name: Ptt, Activated; Complete Time: 23:48 04/09 20:11 Order name: Glucose, Ancillary Testing; Complete Time: 20:45 EDMS 04/10 02:33 Order name: Urinalysis w/ reflexes EDMS 04/10 02:33 Order name: CBC with Automated Diff EDMS 04/10 02:34 Order name: CBC with Automated Diff EDMS 04/10 02:34 Order name: Comprehensive Metabolic Panel EDMS 04/10 02:34 Order name: Comprehensive Metabolic Panel EDMS 04/10 02:34 Order name: Troponin High Sensitivity EDMS 04/10 02:34 Order name: Troponin High Sensitivity EDMS 04/10 02:34 Order name: Troponin High Sensitivity EDMS 04/10 02:34 Order name: Troponin High Sensitivity EDMS 04/09 19:59 Order name: CT Stroke Brain w/o Contrast; Complete Time: 20:45 04/09 19:59 Order name: Stroke CXR 1 View; Complete Time: 20:45 04/09 19:59 Order name: EKG; Complete Time: 20:00 04/09 19:59 Order name: Accucheck; Complete Time: 20:02 04/09 19:59 Order name: Cardiac monitoring; Complete Time: 20:08 04/09 19:59 Order name: EKG - Nurse/Tech; Complete Time: 20:08 04/09 19:59 Order name: IV Saline Lock; Complete Time: 20:38 04/09 19:59 Order name: Labs collected and sent; Complete Time: 20:38 04/09 19:59 Order name: NPO; Complete Time: 20:02 04/09 19:59 Order name: O2 Per Protocol; Complete Time: 20:02 04/09 19:59 Order name: O2 Sat Monitoring; Complete Time: 20:02 jb4 04/09 19:59 Order name: Stroke Swallow Screen; Complete Time: 20:52 jb4 EC:28 Rate is 69 beats/min. Rhythm is regular. VA interval is normal. QRS interval is normal. rn QT interval is normal. T waves are Inverted in leads I, aVL, V4, V5, V6. No ST changes noted. Clinical impression: NSR w/ Non-specific ST/T Changes and No change from prior ECG. Interpreted by me. Reviewed by me. Administered Medications: 04/10 02:36 Drug: Lincoln PO 10 mg-325 mg 1 tabs PO once Route: PO; al5 Point of Care Testing: Blood Glucose: : Blood Glucose: 75 mg/dL; al5 :28 done prior to this nurse receiving report al5 Ranges: Critical Glucose Levels:Adult <50 mg/dl or >400 mg/dl <40 mg/dl or >180 mg/dl Disposition Summary: 04/09/24 23:58 Hospitalization Ordered Notes: Hospitalization Status: Inpatient Admission rn Provider: Nahum Tejada rn Condition: Stable rn Problem: new rn Symptoms: have improved rn Bed/Room Type: Standard rn Location: Telemetry/MedSurg (Inpatient)(04/10/24 08:01) eb Room Assignment: [facility](04/10/24 08:01) eb Diagnosis - Chest pain, unspecified rn - Paresthesia of skin rn Forms: - Medication Reconciliation Form rn - SBAR form rn - Leadership Thank You Letter rn NIH Stroke Scale - NIH Stroke Score Date: 04/09/2024 Time: 19:38 Total Score = 2 10. Dysarthria (speech clarity - read or repeat words) - 0(Normal) 11. Extinction and Inattention (visual/tactile/auditory/spatial/personal) - 0(No abnormality) 1a. Level of Consciousness (LOC) - 0(Alert) 1b. Level of Consciousness (LOC) (Month \T\ Age) - 0(Both) 1c. LOC Commands (Open \T\ Closes Eyes/Counter Intelligence Technician) - 0(Both) 2. Best Gaze (Lateral Gaze Paresis) - 0(Normal) 3. Visual Field Loss - 0(No visual loss) 4. Facial Palsy - 0(Normal) 5a. Left Arm: Motor (10-second hold) - 0(No drift) 5b. Right Arm: Motor (10-second hold) - 0(No drift) 6a. Left Leg: Motor (5-second hold - always test supine) - 0(No drift) 6b. Right Leg: Motor (5-second hold - always test supine) - 0(No drift) 7. Limb Ataxia (finger/nose \T\ heel/kimble - test with eyes open) - 0(Absent) 8. Sensory Loss (pinprick arms/legs/face) - 2(Severe to total loss) 9. Best Language: Aphasia (description/naming/reading) - 0(No aphasia) Initials: jb4 NIH Stroke Scale - NIH Stroke Score Date: 04/09/2024 Time: 20:00 Total Score = 0 10. Dysarthria (speech clarity - read or repeat words) - 0(Normal) 11. Extinction and Inattention (visual/tactile/auditory/spatial/personal) - 0(No abnormality) 1a. Level of Consciousness (LOC) - 0(Alert) 1b. Level of Consciousness (LOC) (Month \T\ Age) - 0(Both) 1c. LOC Commands (Open \T\ Closes Eyes/Counter Intelligence Technician) - 0(Both) 2. Best Gaze (Lateral Gaze Paresis) - 0(Normal) 3. Visual Field Loss - 0(No visual loss) 4. Facial Palsy - 0(Normal) 5a. Left Arm: Motor (10-second hold) - 0(No drift) 5b. Right Arm: Motor (10-second hold) - 0(No drift) 6a. Left Leg: Motor (5-second hold - always test supine) - 0(No drift) 6b. Right Leg: Motor (5-second hold - always test supine) - 0(No drift) 7. Limb Ataxia (finger/nose \T\ heel/kimble - test with eyes open) - 0(Absent) 8. Sensory Loss (pinprick arms/legs/face) - 0(Normal) 9. Best Language: Aphasia (description/naming/reading) - 0(No aphasia) Initials: jb4 NIH Stroke Scale - NIH Stroke Score Date: 04/09/2024 Time: 20:14 Total Score = 0 10. Dysarthria (speech clarity - read or repeat words) - 0(Normal) 11. Extinction and Inattention (visual/tactile/auditory/spatial/personal) - 0(No abnormality) 1a. Level of Consciousness (LOC) - 0(Alert) 1b. Level of Consciousness (LOC) (Month \T\ Age) - 0(Both) 1c. LOC Commands (Open \T\ Closes Eyes/Counter Intelligence Technician) - 0(Both) 2. Best Gaze (Lateral Gaze Paresis) - 0(Normal) 3. Visual Field Loss - 0(No visual loss) 4. Facial Palsy - 0(Normal) 5a. Left Arm: Motor (10-second hold) - 0(No drift) 5b. Right Arm: Motor (10-second hold) - 0(No drift) 6a. Left Leg: Motor (5-second hold - always test supine) - 0(No drift) 6b. Right Leg: Motor (5-second hold - always test supine) - 0(No drift) 7. Limb Ataxia (finger/nose \T\ heel/kimble - test with eyes open) - 0(Absent) 8. Sensory Loss (pinprick arms/legs/face) - 0(Normal) 9. Best Language: Aphasia (description/naming/reading) - 0(No aphasia) Initials: rn NIH Stroke Scale - NIH Stroke Score Date: 04/09/2024 Time: 22:00 Total Score = 0 10. Dysarthria (speech clarity - read or repeat words) - 0(Normal) 11. Extinction and Inattention (visual/tactile/auditory/spatial/personal) - 0(No abnormality) 1a. Level of Consciousness (LOC) - 0(Alert) 1b. Level of Consciousness (LOC) (Month \T\ Age) - 0(Both) 1c. LOC Commands (Open \T\ Closes Eyes/Counter Intelligence Technician) - 0(Both) 2. Best Gaze (Lateral Gaze Paresis) - 0(Normal) 3. Visual Field Loss - 0(No visual loss) 4. Facial Palsy - 0(Normal) 5a. Left Arm: Motor (10-second hold) - 0(No drift) 5b. Right Arm: Motor (10-second hold) - 0(No drift) 6a. Left Leg: Motor (5-second hold - always test supine) - 0(No drift) 6b. Right Leg: Motor (5-second hold - always test supine) - 0(No drift) 7. Limb Ataxia (finger/nose \T\ heel/kimble - test with eyes open) - 0(Absent) 8. Sensory Loss (pinprick arms/legs/face) - 0(Normal) 9. Best Language: Aphasia (description/naming/reading) - 0(No aphasia) Initials: jb4 Signatures: Dispatcher [employer] EDDhara Newman RN Gene Lezama MD MD rn Bryson, James, RN RN jb4 Sharona Faith Amanda, RN RN al5 Corrections: (The following items were deleted from the chart) 04/09 21:31 21:28 Rate is 69 beats/min. Rhythm is regular. VA interval is normal. QRS rn interval is normal. QT interval is normal. T waves are Inverted in leads I, aVL, V4, V5, V6. No ST changes noted. Clinical impression: NSR w/ Non-specific ST/T Changes. Interpreted by me. Reviewed by me. vivi 04/10 00:08 04/09 23:58 Telemetry/MedSurg (Inpatient) vivi murrell 04/10 00:08 04/09 23:58 vivi murerll 04/10 08:01 00:08 [facility] ER HOLD kl eb 08:01 00:08 ERHOLD- kl eb
--- NOTE | 2024-04-09 23:58 | ER ---
Nurse's Notes [facility] Name: Geetha Khan Age: 48 yrs Sex: Female : 1975 Arrival Date: 04/09/2024 Time: 19:32 Bed 15 Private MD: Diagnosis: Chest pain, unspecified;Paresthesia of skin Presentation: 04/09 19:35 Chief complaint: EMS states: Pt reports chest pain x1 hour and left sided numbness x1 jb4 hour. Coronavirus screen: At this time, the client does not indicate any symptoms associated with coronavirus-19. Ebola Screen: No symptoms or risks identified at this time. Risk Assessment: Do you want to hurt yourself or someone else? Patient reports no desire to harm self or others. Onset of symptoms was April 09, 2024. Onset of symptoms was April 09, 2024 at 18:36. Transition of care: patient was not received from another setting of care. 19:35 Method Of Arrival: EMS: [facility] jb4 19:35 Acuity: CORRINA 2 jb4 19:35 An acute neurological deficit is present. The charge nurse has been notified. The jb4 patients blood glucose was checked before arriving to the hospital and was found to be normal. 19:35 Initial Sepsis Screen: Does the patient meet any 2 criteria? No. Patient's initial jb4 sepsis screen is negative. Does the patient have a suspected source of infection? No. Patient's initial sepsis screen is negative. NURSING HOME ADMINISTRATOR: 04/10 01:28 unknown al5 Stroke Activation: Symptom onset < 3 hours Physician: ED Attending; Name: Dr. Ansari; Notified At: 19:36; Arrived At: 22:00 Physician: Mid-Level Provider; Name: ; Notified At: 19:36; Arrived At: Physician: [not used]; Name: ; Notified At: ; Arrived At: Physician: [not used]; Name: ; Notified At: ; Arrived At: Physician: [not used]; Name: ; Notified At: ; Arrived At: Historical: - Allergies: 04/09 19:36 Aspirin; jb4 19:36 CRANBERRY; jb4 19:36 FISH PRODUCT DERIVATIVES; jb4 19:36 GRAPEFRUIT; jb4 19:36 SHELLFISH; jb4 - PMHx: 19:36 Cerebrovascular accident; Chronic obstructive lung disease; Myocardial infarction; jb4 Hypertensive disorder; Seizure; - Immunization history:: Adult Immunizations up to date. - Infectious Disease History:: Denies. - Social history:: Smoking status: Patient denies any tobacco usage or history of. - Family history:: not pertinent. - Hospitalizations: : No recent hospitalization is reported. Screenin:24 [facility] ED Fall Risk Assessment (Adult) History of falling in the last 3 months, jb4 including since admission No falls in past 3 months (0 pts) Confusion or Disorientation Yes (5 pts) Intoxicated or Sedated No (0 pts) Impaired Gait Yes (1 pt) Mobility Assist Device Used No (0 pt) Altered Elimination No (0 pt) Score/Fall Risk Level 0 - 2 = Low Risk Oriented to surroundings, Maintained a safe environment. Abuse screen: Denies threats or abuse. Nutritional screening: No deficits noted. Tuberculosis screening: No symptoms or risk factors identified. Assessment: 19:35 Reassessment: Dr. Ansari notified pt reporting left sided numbness with new onset. jb4 19:38 VAN Scoring: Arm Drift: Flaccid/no antigravity Visual Disturbance: No visual jb4 disturbance noted. Aphasia: No aphasia noted. Neglect: Patient is noted to be ignoring one of side of their body. Provider notified of +VAN scoring. 19:38 General: Appears in no apparent distress. comfortable, Behavior is calm, cooperative, jb4 appropriate for age. Pain: Complains of pain in chest Pain does not radiate. Pain currently is 6 out of 10 on a pain scale. Quality of pain is described as pressure. Neuro: Level of Consciousness is awake, alert, obeys commands, Oriented to person, place, time, situation, Reports numbness in left side of head, left hand, left foot, left arm and left leg. Cardiovascular: Patient's skin is warm and dry. Respiratory: Airway is patent Respiratory effort is even, unlabored, Respiratory pattern is regular, symmetrical. Derm: Skin is intact, Skin is pink, warm \T\ dry. Musculoskeletal: Circulation, motion, and sensation intact. Range of motion: intact in all extremities. 19:42 Reassessment: Code stroke called. jb4 19:48 Reassessment: pt to CT. jb4 20:00 Reassessment: Pt now reporting all symptoms resolved. jb4 20:06 Reassessment: Dr. Medrano to bedside. jb4 20:06 TNKase (Tenecteplase) Screening: Contraindications: Rapidly improving condition or jb4 minor deficit: Yes. 20:15 Meghann Swallow Protocol Brief Cognitive Screen What is your name? Normal, Where are you jb4 right now? Normal, What year is it? Normal. Oral Mechanism Examination Facial Symmetry: Normal, Motion: Normal, Lip Closure: Normal, Oral Mechanism Result: Normal. 3 oz Water Swallow Challenge: Pt able to drink all water without stopping, coughing, choking or throat clearing: Yes Result: PASS MD Notified: Gene Medrano MD. 21:00 Reassessment: Patient appears in no apparent distress at this time. Patient and/or jb4 family updated on plan of care and expected duration. Pain level reassessed. Patient is alert, oriented x 3, equal unlabored respirations, skin warm/dry/pink. 22:00 Reassessment: Patient appears in no apparent distress at this time. Patient and/or jb4 family updated on plan of care and expected duration. Pain level reassessed. Patient is alert, oriented x 3, equal unlabored respirations, skin warm/dry/pink. 23:18 Reassessment: Patient appears in no apparent distress at this time. Patient and/or jb4 family updated on plan of care and expected duration. Pain level reassessed. Patient is alert, oriented x 3, equal unlabored respirations, skin warm/dry/pink. 04/10 00:00 Reassessment: Patient appears in no apparent distress at this time. No changes from al5 previously documented assessment. Patient and/or family updated on plan of care and expected duration. Pain level reassessed. Patient is alert, oriented x 3, equal unlabored respirations, skin warm/dry/pink. 01:26 Austin Swallow Protocol Exclusion Criteria: Exclusion Criteria Result: Proceed. al5 01:30 Reassessment: Patient appears in no apparent distress at this time. No changes from al5 previously documented assessment. Patient and/or family updated on plan of care and expected duration. Pain level reassessed. Patient is alert, oriented x 3, equal unlabored respirations, skin warm/dry/pink. Patient states symptoms have not improved. Vital Signs: 04/09 19:41 BP 150 / 103; Pulse 77; Resp 16; Temp 98.7(O); Pulse Ox 100% on R/A; Weight 53.52 kg; jb4 20:30 BP 161 / 113; Pulse 76; Resp 16; Pulse Ox 100% ; jb4 20:45 BP 158 / 114; Pulse 72; Resp 16; Pulse Ox 100% on R/A; jb4 21:00 BP 167 / 109; Pulse 75; Resp 16; Pulse Ox 100% on R/A; jb4 21:15 BP 154 / 109; Pulse 71; Resp 16; Pulse Ox 100% on R/A; jb4 21:30 BP 154 / 109; Pulse 71; Resp 16; Pulse Ox 100% on R/A; jb4 21:45 BP 158 / 102; Pulse 77; Resp 16; Pulse Ox 96% on R/A; jb4 22:00 BP 151 / 102; Pulse 75; Resp 16; Pulse Ox 98% on R/A; jb4 22:15 BP 155 / 105; Pulse 78; Resp 16; Pulse Ox 98% on R/A; jb4 22:30 BP 157 / 105; Pulse 88; Resp 16; Pulse Ox 97% on R/A; jb4 22:45 BP 132 / 109; Pulse 76; Resp 16; Pulse Ox 100% on R/A; jb4 23:00 BP 133 / 94; Pulse 80; Resp 16; Pulse Ox 99% on R/A; jb4 04/10 01:12 BP 135 / 96; Pulse 77; Resp 18 S; Pulse Ox 98% on R/A; br2 Trauma Score (Adult): 04/09 20:30 Eye Response: spontaneous(1); Verbal Response: oriented(1); Motor Response: obeys jb4 commands(2); Systolic BP: > 89 mm Hg(4); Respiratory Rate: 10 to 29 per min(4); Hernando Score: 15; Trauma Score: 12 22:00 Eye Response: spontaneous(1); Verbal Response: oriented(1); Motor Response: obeys jb4 commands(2); Systolic BP: > 89 mm Hg(4); Respiratory Rate: 10 to 29 per min(4); Hernando Score: 15; Trauma Score: 12 23:00 Eye Response: spontaneous(1); Verbal Response: oriented(1); Motor Response: obeys jb4 commands(2); Systolic BP: > 89 mm Hg(4); Respiratory Rate: 10 to 29 per min(4); Mariluz Score: 15; Trauma Score: 12 NIH Stroke Scale Scores: 19:38 NIHSS Score: 2 jb4 20:00 NIHSS Score: 0 jb4 20:14 NIHSS Score: 0 rn 22:00 NIHSS Score: 0 jb4 ED Course: 19:33 Patient arrived in ED. jj6 19:35 Jaziel Storm, RN is Primary Nurse. jb4 19:36 Triage completed. jb4 19:36 Arm band placed on right wrist. jb4 19:36 Client placed on continuous cardiac and pulse oximetry monitoring. NIBP monitoring jb4 applied. manager monitoring on. Pulse ox on. 20:00 Gene eMdrano MD is Attending Physician. rn 20:06 CT Stroke Brain w/o Contrast In Process Unspecified. EDMS 20:07 EKG done, by ED staff. hw 20:17 Stroke CXR 1 View In Process Unspecified. EDMS 20:45 Inserted saline lock: 20 gauge in right antecubital area, using aseptic technique. vk Blood collected. Flushed with 10 mL NS. 20:49 Initial lab(s) drawn, by me, sent to lab. vk 20:50 Basic Metabolic Panel Sent. vk 20:50 CBC with Diff Sent. vk 20:50 High Sensitivity Troponin Sent. vk 20:50 Protime (+inr) Sent. vk 20:50 Ptt, Activated Sent. vk 23:24 Patient has correct armband on for positive identification. Bed in low position. Call jb4 light in reach. Side rails up X 1. Provided Education on: plan of care. 23:24 No provider procedures requiring assistance completed. Patient maintains SpO2 jb4 saturation greater than 95% on room air. 23:57 Nahum Tejada MD is Hospitalizing Provider. rn 04/10 01:29 Patient admitted, IV remains in place. al5 04:58 Removal of peripheral IV. Catheter intact, dressing applied. sa1 05:03 Repeat lab(s) drawn. by me, sent to lab. sa1 05:23 Missed attempt(s): 22 gauge in left wrist. Bleeding controlled, band aid applied, sa1 catheter tip intact. Administered Medications: 02:36 Drug: Spearfish PO 10 mg-325 mg 1 tabs PO once Route: PO; al5 Medication: 04/09 23:24 VIS not applicable for this client. jb4 Point of Care Testing: Blood Glucose: 04/10 01:28 Blood Glucose: 75 mg/dL; al5 01:28 done prior to this nurse receiving report al5 Ranges: Outcome: 04/09 23:58 Decision to Hospitalize by Provider. rn 04/10 03:06 Admitted to ER Hold. Please see [facility] for further documentation. al5 Condition: stable Instructed on the need for admit, 09:28 Patient left the ED. hb NIH Stroke Scale - NIH Stroke Score Date: 04/09/2024 Time: 19:38 Total Score = 2 10. Dysarthria (speech clarity - read or repeat words) - 0(Normal) 11. Extinction and Inattention (visual/tactile/auditory/spatial/personal) - 0(No abnormality) 1a. Level of Consciousness (LOC) - 0(Alert) 1b. Level of Consciousness (LOC) (Month \T\ Age) - 0(Both) 1c. LOC Commands (Open \T\ Closes Eyes/Machine Design Checker) - 0(Both) 2. Best Gaze (Lateral Gaze Paresis) - 0(Normal) 3. Visual Field Loss - 0(No visual loss) 4. Facial Palsy - 0(Normal) 5a. Left Arm: Motor (10-second hold) - 0(No drift) 5b. Right Arm: Motor (10-second hold) - 0(No drift) 6a. Left Leg: Motor (5-second hold - always test supine) - 0(No drift) 6b. Right Leg: Motor (5-second hold - always test supine) - 0(No drift) 7. Limb Ataxia (finger/nose \T\ heel/kimble - test with eyes open) - 0(Absent) 8. Sensory Loss (pinprick arms/legs/face) - 2(Severe to total loss) 9. Best Language: Aphasia (description/naming/reading) - 0(No aphasia) Initials: jb4 NIH Stroke Scale - NIH Stroke Score Date: 04/09/2024 Time: 20:00 Total Score = 0 10. Dysarthria (speech clarity - read or repeat words) - 0(Normal) 11. Extinction and Inattention (visual/tactile/auditory/spatial/personal) - 0(No abnormality) 1a. Level of Consciousness (LOC) - 0(Alert) 1b. Level of Consciousness (LOC) (Month \T\ Age) - 0(Both) 1c. LOC Commands (Open \T\ Closes Eyes/Machine Design Checker) - 0(Both) 2. Best Gaze (Lateral Gaze Paresis) - 0(Normal) 3. Visual Field Loss - 0(No visual loss) 4. Facial Palsy - 0(Normal) 5a. Left Arm: Motor (10-second hold) - 0(No drift) 5b. Right Arm: Motor (10-second hold) - 0(No drift) 6a. Left Leg: Motor (5-second hold - always test supine) - 0(No drift) 6b. Right Leg: Motor (5-second hold - always test supine) - 0(No drift) 7. Limb Ataxia (finger/nose \T\ heel/kimble - test with eyes open) - 0(Absent) 8. Sensory Loss (pinprick arms/legs/face) - 0(Normal) 9. Best Language: Aphasia (description/naming/reading) - 0(No aphasia) Initials: jb4 NIH Stroke Scale - NIH Stroke Score Date: 04/09/2024 Time: 20:14 Total Score = 0 10. Dysarthria (speech clarity - read or repeat words) - 0(Normal) 11. Extinction and Inattention (visual/tactile/auditory/spatial/personal) - 0(No abnormality) 1a. Level of Consciousness (LOC) - 0(Alert) 1b. Level of Consciousness (LOC) (Month \T\ Age) - 0(Both) 1c. LOC Commands (Open \T\ Closes Eyes/Machine Design Checker) - 0(Both) 2. Best Gaze (Lateral Gaze Paresis) - 0(Normal) 3. Visual Field Loss - 0(No visual loss) 4. Facial Palsy - 0(Normal) 5a. Left Arm: Motor (10-second hold) - 0(No drift) 5b. Right Arm: Motor (10-second hold) - 0(No drift) 6a. Left Leg: Motor (5-second hold - always test supine) - 0(No drift) 6b. Right Leg: Motor (5-second hold - always test supine) - 0(No drift) 7. Limb Ataxia (finger/nose \T\ heel/kimble - test with eyes open) - 0(Absent) 8. Sensory Loss (pinprick arms/legs/face) - 0(Normal) 9. Best Language: Aphasia (description/naming/reading) - 0(No aphasia) Initials: vivi NIH Stroke Scale - NIH Stroke Score Date: 04/09/2024 Time: 22:00 Total Score = 0 10. Dysarthria (speech clarity - read or repeat words) - 0(Normal) 11. Extinction and Inattention (visual/tactile/auditory/spatial/personal) - 0(No abnormality) 1a. Level of Consciousness (LOC) - 0(Alert) 1b. Level of Consciousness (LOC) (Month \T\ Age) - 0(Both) 1c. LOC Commands (Open \T\ Closes Eyes/Machine Design Checker) - 0(Both) 2. Best Gaze (Lateral Gaze Paresis) - 0(Normal) 3. Visual Field Loss - 0(No visual loss) 4. Facial Palsy - 0(Normal) 5a. Left Arm: Motor (10-second hold) - 0(No drift) 5b. Right Arm: Motor (10-second hold) - 0(No drift) 6a. Left Leg: Motor (5-second hold - always test supine) - 0(No drift) 6b. Right Leg: Motor (5-second hold - always test supine) - 0(No drift) 7. Limb Ataxia (finger/nose \T\ heel/kimble - test with eyes open) - 0(Absent) 8. Sensory Loss (pinprick arms/legs/face) - 0(Normal) 9. Best Language: Aphasia (description/naming/reading) - 0(No aphasia) Initials: jb4 Signatures: Dispatcher [employer] EDMS Gene Medrano MD MD rn Baxter, Heather, RN RN hb Bryson, James, RN RN jb4 Bia Garcia6 Chata Gibbons Amanda, RN RN shan5 Sultan Judy sa1 Destiney Moura RN RN br2 Marisa Liu Corrections: (The following items were deleted from the chart) 04/09 20:17 19:35 Reassessment: Provider notified pt reporting left sided numbness with new jb4 onset. jb4 23:24 22:42 BP 157 / 105; Pulse 88bpm; Resp 16bpm; Pulse Ox 97% RA; jb4 jb4 04/10 00:10 01/23 19:35 Stroke Activation: Symptom onset < 3 hours; ED Attending Dr. Elan euceda notified at 19:36, arrived at 22:10; Mid-Level Provider notified at 19:36 04/10 00:04/09 20:06 Reassessment: Pt now reporting all symptoms resolved. Ag 04/10 00:04/09 20:06 NIHSS Score: 0 04/10 00:04/09 22:00 BP 151 / 102; Pulse 16bpm; Pulse Ox 98% RA; jb4 04/10 01:16 01:12 BP 135 / 96; br2 br2 01:31 01:30 Reassessment: Patient appears in no apparent distress at this time. No al5 changes from previously documented assessment. Patient and/or family updated on plan of care and expected duration. Pain level reassessed. Patient is alert, oriented x 3, equal unlabored respirations, skin warm/dry/pink. al5
[2024-04-10] MEDS ORDERED: ACETAMINOPHEN 325 MG TABLET PO PRN (02:28)
[2024-04-10] MEDS ORDERED: ONDANSETRON 4 MG/2 ML VIAL IV PRN (02:28)
[2024-04-10] MEDS ORDERED: HYDROCODONE/APAP 10/325 TAB ONE (02:34)
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
[2024-04-10 03:07] VITALS: BMI 21.5
[2024-04-10] MEDS: ASPIRIN EC 81 MG TAB PO SCH (05:05)
[2024-04-10] MEDS ORDERED: ASPIRIN EC 81 MG TAB PO ONE (05:40)
[2024-04-10] MEDS ORDERED: HEPARIN 5000 UNIT/ML 1 ML VIAL ONE (08:26)
[2024-04-10] MEDS ORDERED: carBAMazepine 200 MG TAB ONE (08:26)
[2024-04-10] MEDS: carBAMazepine 200 MG TAB PO SCH (08:52)
[2024-04-10] MEDS: HEPARIN 5000 UNIT/ML 1 ML VIAL SQ SCH (08:52)
[2024-04-10] MEDS: DULERA 200/5 (MOMETASONE/FORMOTEROL) INHALER IH SCH (09:57)
[2024-04-10 10:10] VITALS: O2SAT 98
[2024-04-10] MEDS: HYDROCODONE/APAP 5/325 MG TAB PO ONE (10:51)
[2024-04-10] MEDS: LEVOTHYROXINE SODIUM 100 MCG VIAL IV SCH (10:52)
[2024-04-10] MEDS: METHYLPREDNISOLONE 125 MG INJ IV ONE (10:52)
[2024-04-10] MEDS: FLU (Fluarix Triv) TS24-25(6MOS UP)/PF 45 MCG/0.5 ML Syringe IM ONE (11:00)
[2024-04-10 12:39] LABS: Magnesium 1.3 mg/dL (1.6-2.4)
[2024-04-10 12:43] LABS: Troponin High Sensitivity 79.8 pg/mL (<58.9)
[2024-04-10] MEDS: POTASSIUM CL SA 10 MEQ TAB PO ONE (14:20)
[2024-04-10] MEDS: MAGNESIUM OXIDE 400 MG TAB PO ONE (14:20)
[2024-04-10] MEDS: MAGNESIUM 50% 3 GM in NA CHLORIDE 0.9% 100 ML IV ONE (14:58)
[2024-04-10] MEDS: HYDROCODONE/APAP 10/325 TAB PO PRN (17:47)
[2024-04-10 18:10] LABS: Anion Gap 11.8 mEq/L (5.0-15.0); Magnesium 2.7 mg/dL (1.6-2.4); Potassium 4.8 mEq/L (3.5-5.1)
--- NOTE | 2024-04-10 18:43 | CON ---
Date of Consultation: 04/10/2024 Reason For Consultation: Elevated troponin and chest pain. History Of Present Illness: A 48-year-old female with history of CVA, COPD, coronary artery disease, left-sided paralysis and contraction, history of TX in the past, seizures, presented with chest disc omfort for the past few days, pressure like, radiation to the left side. Denies having any active ch est pain now. No nausea, vomiting, diarrhea. No diaphoresis. Past Medical History: CVA, COPD, coronary artery disease, hypertension, seizure disorder. Medications: Refer reconciliation sheet for detailed list. Allergies: ASPIRIN. Family History: No premature coronary artery disease or cancer. Social History: She does not smoke or drink. Does not use any drugs. Review of Systems: All systems reviewed, they were negative except as mentioned in the HPI. Physical Examination: Vital Signs: Reviewed. Head and Neck: Pupils are equal, reactive to light. Intact eye movements. No JVD. No cervical lym phadenopathy. Neck is supple. Thyroid is not enlarged. Lungs: Clear to auscultation bilaterally. No rhonchi, wheezing, or crackles. No accessory muscle u se. Heart: Regular. No extra sounds. Abdomen: Soft, nontender. Bowel sounds positive. No organomegaly. No masses or hernia. No rigidi ty or rebound. Extremities: No clubbing or cyanosis. Intact pulses. Skin: No rash. Neurologic: Alert, awake, oriented x3. No acute focal deficits appreciated. The left side is paral yzed. Investigations: Troponin 81, 98, 93, 79. BUN 20, creatinine 1.28. Hemoglobin 10.7. Assessment And Recommendations: 1.Chest pain. Mildly elevated troponin, but this patient had a coronary angiogram in November 2022 and she had mild proximal RCA disease. Unlikely, this is to be an acute coronary syndrome; however, I recommend a Lexiscan nuclear stress test and an echo to further evaluate. Continue aspirin and st atin. 2.Dyslipidemia. Continue statin. 3.History of stroke with left-sided paralysis and stable. Continue aspirin. 4.Hypertension. Blood pressure is controlled. Continue current therapy. SR/MODL Voice ID: [id number] Report ID: [id number]
[2024-04-10] MEDS: predniSONE 20 MG TAB PO SCH (20:22)
[2024-04-10] MEDS: ATORVASTATIN 40 MG TAB PO SCH (20:22)
[2024-04-10 22:12] VITALS: BP 144/86; TEMP 98.1
== END 2024-04-10 22:18 | disposition home or self-care (01) ==
LOC: ER 19:32 → ERHOLD 04-10 02:28 → INTOOBSV 04-10 02:28 → 4TH 04-10 08:39
PROVIDERS: ADMIT Family Medicine; ATTEND Hospitalist
DX: R07.9 Chest pain, unspecified (principal); R20.2 Paresthesia of skin; J44.9 Chronic obstructive pulmonary disease, unspecified; I25.10 Atherosclerotic heart disease of native coronary artery without angina pectoris; I69.354 Hemiplegia and hemiparesis following cerebral infarction affecting left non-dominant side; E78.5 Hyperlipidemia, unspecified; I25.2 Old myocardial infarction; I10 Essential (primary) hypertension; R56.9 Unspecified convulsions; F41.9 Anxiety disorder, unspecified; Z91.013 Allergy to seafood; Z91.018 Allergy to other foods; Z88.6 Allergy status to analgesic agent; Z79.82 Long term (current) use of aspirin
CPT/HCPCS: 85025; 80048 ×2; 36415; 83735 ×2; 85610; 82947; 85730; 84484 ×4; 82607; 83690; 70450; 71045; 99285; J1644 ×2; J7512; J3535; J3475; J2919; G0378

== ENCOUNTER 2024-04-12 20:58 | Inpatient (IN) | payer OTHER, SELFPAY ==
[2024-04-12 23:20] LABS: Absolute Monocytes 1.4 K/uL (0.1-1.3); Basophils % 0.1 % (0-1.3); Red Cell Distribution Width 13.1 % (12.1-15.2)
[2024-04-12 23:24] LABS: Absolute Lymphocytes (CBC) 3.1 K/uL (0.7-4.9); Absolute Neutrophil 10.1 K/uL (1.8-8.0); Hematocrit 36.8 % (36.0-45.0); Hemoglobin 12.4 g/dL (12.0-15.0); Lymphocytes % 21.1 % (15.3-44.8); MCH 33.3 pg (27.0-35.0); MCHC 33.7 g/dL (32.0-36.0); MCV 98.6 fL (80-100); Monocytes % 9.9 % (3.3-12.3); Neutrophils % 68.9 % (41.7-73.7); Platelets 331 thou/uL (152-406); RBC Red Blood Cell Count 3.74 M/uL (3.86-4.86)
[2024-04-12 23:33] LABS: Anion Gap 8.7 mEq/L (5.0-15.0); BUN Blood Urea Nitrogen 19 mg/dL (7-18); Bicarbonate 32 mEq/L (21-32); Glomerular Filtration Rate 46 ml/min (=/>90); Glucose Level 85 mg/dL (74-106); Potassium 3.7 mEq/L (3.5-5.1); Sodium Level 140 mEq/L (136-145)
[2024-04-13] MEDS ORDERED: HYDROCODONE/APAP 5/325 MG TAB ONE ×3 (00:12→13:39)
[2024-04-13 01:18] LABS: ALT/SGPT 22 U/L (13-56); AST/SGOT 14 U/L (15-37); Albumin 3.6 g/dL (3.4-5.0); Albumin/Globulin Ratio 1.1 (1.1-1.8); Alkaline Phosphatase 129 U/L (45-117); Bilirubin Direct < 0.2 mg/dL (0-0.2); Bilirubin Indirect, Calculated 0.1 mg/dL (0.2-0.8); Bilirubin Total 0.3 mg/dL (0.2-1.0); Globulin 3.2 g/dL (2.3-3.5); Protein, Total 6.8 g/dL (6.4-8.2)
[2024-04-13 02:16] LABS: PTT, Activated Partial Thromb 28.5 SECONDS (24.3-36.9); Protime INR 0.95
--- NOTE | 2024-04-13 03:13 | ER ---
Nurse's Notes [facility] Name: Geetha Khan Age: 48 yrs Sex: Female : 1975 Arrival Date: 04/12/2024 Time: 20:58 Bed 15 Private MD: Diagnosis: Elevated troponin;Chest pain Presentation: 04/12 21:15 Chief complaint: EMS states: toned out for chest pain 10/10, heavy. Coronavirus screen: me1 Vaccine status: Patient reports being unvaccinated. Ebola Screen: No symptoms or risks identified at this time. 21:15 Method Of Arrival: [place] [facility] [place] Initial Sepsis Screen: Does the patient meet any 2 criteria? HR > 90 bpm. No. Patient's me1 initial sepsis screen is negative. Does the patient have a suspected source of infection? No. Patient's initial sepsis screen is negative. Risk Assessment: Do you want to hurt yourself or someone else? Patient reports no desire to harm self or others. Onset of symptoms was April 12, 2024 at 20:20. 21:15 Acuity: CORRINA 4 me1 Triage Assessment: 23:35 General: Behavior is calm, cooperative, appropriate for age. rg5 23:35 Pain: Complains of pain in chest. rg5 DECK HAND: 21:15 LMP N/A - Post-menopause, Not me1 Historical: - Allergies: 21:19 Aspirin; me1 21:19 CRANBERRY; me1 21:19 FISH PRODUCT DERIVATIVES; me1 21:19 GRAPEFRUIT; me1 21:19 SHELLFISH; me1 - PMHx: 21:19 Cerebrovascular accident; Chronic obstructive lung disease; Hypertensive disorder; me1 Myocardial infarction; Seizure; - PSHx: 21:19 None; me1 - Immunization history:: Adult Immunizations up to date. - Infectious Disease History:: Denies. - Social history:: Smoking status: Patient reports the use of cigarette tobacco products, denies chronic smoking, but will smoke occasionally. Screenin/27 01:30 [facility] ED Fall Risk Assessment (Adult) History of falling in the last 3 months, rg5 including since admission No falls in past 3 months (0 pts) Confusion or Disorientation No (0 pts) Intoxicated or Sedated No (0 pts) Impaired Gait Yes (1 pt) Mobility Assist Device Used Yes (1 pt) Altered Elimination Yes (1 pt) Score/Fall Risk Level 3 or more points = High Risk Oriented to surroundings, Maintained a safe environment, Hourly rounding (assess needs \T\ fall precautionary measures) done, Used ambulatory aids as needed (educated on \T\ assisted with). Abuse screen: Denies threats or abuse. Nutritional screening: No deficits noted. Tuberculosis screening: No symptoms or risk factors identified. Assessment: 01:30 General: Appears in no apparent distress. comfortable. Pain: Complains of pain in chest rg5 Pain does not radiate. Pain at worst was 6 out of 10 on a pain scale. Quality of pain is described as aching, Pain began 2 hours ago. 01:30 Neuro: Level of Consciousness is awake, alert, Oriented to person, place, time. rg5 Cardiovascular: Reports chest pain, Heart tones S1 S2 Patient's skin is warm and dry. Rhythm is sinus rhythm. Respiratory: Airway is patent Trachea midline Respiratory effort is even, unlabored, Respiratory pattern is regular, symmetrical. GI: Abdomen is flat, Abd is soft and non tender. : No signs and/or symptoms were reported regarding the genitourinary system. EENT: No deficits noted. Derm: Skin is intact, Skin is dry, Skin is normal, Skin temperature is warm. Musculoskeletal: Circulation, motion, and sensation intact. Range of motion: intact in all extremities. Vital Signs: 04/12 21:15 BP 113 / 76; Pulse 102; Resp 16; Temp 98.3; Pulse Ox 97% ; Weight 53.52 kg; Height 5 me1 ft. 2 in. ; Pain 10/10; 04/13 02:00 BP 106 / 74; Pulse 68; Resp 17; Temp 98(O); Pulse Ox 98% on R/A; Pain 0/10; rg5 04/12 21:15 Body Mass Index 21.58 (53.52 kg, 157.48 cm) me1 04/12 21:15 Pain Scale: Adult me1 04/13 02:00 Pain Scale: Adult rg5 [place] Coma Score: 01:30 Eye Response: spontaneous(4). Motor Response: obeys commands(6). Verbal Response: rg5 oriented(5). Total: 15. ED Course: 04/12 21:05 Patient arrived in ED. [id number] 21:15 Kishor Hoyos DO is Attending Physician. ms3 21:15 Arm band placed on Patient placed in waiting room. me1 21:20 Triage completed. me1 23:01 Basic Metabolic Panel Sent. vk 23:01 CBC with Diff Sent. vk 23:01 Troponin HS Sent. vk 04/13 00:04 Hakan Crowley, RN is Primary Nurse. rg5 00:24 Inserted saline lock: 22 gauge in right antecubital area, using aseptic technique. vk Blood collected. Flushed with 10 mL NS. 00:25 Initial lab(s) drawn, by me, sent to lab. vk 00:51 CXR XRAY In Process Unspecified. EDMS 01:03 First set of blood cultures drawn by me. oe 01:20 Second set of blood cultures drawn by me. oe 01:28 Inserted saline lock: 22 gauge in right hand, using aseptic technique. Blood collected. oe Flushed with 10 mL NS. 01:30 Patient has correct armband on for positive identification. Bed in low position. Call rg5 light in reach. Side rails up X 1. Client placed on continuous cardiac and pulse oximetry monitoring. NIBP monitoring applied. monitoring engineer on. Pulse ox on. Door closed. Noise minimized. Warm blanket given. 01:30 No provider procedures requiring assistance completed. Patient maintains SpO2 rg5 saturation greater than 95% on room air. 01:33 Troponin High Sensitivity Sent. oe 01:33 Blood Culture Adult (2) Sent. oe 01:33 Lactate w/ 2H reflex if indic. Sent. oe 01:33 Protime (+inr) Sent. oe 01:33 Ptt, Activated Sent. oe 03:12 Jessica Barron MD is Hospitalizing Provider. ms3 03:25 Provided Education on: need for admit. rg5 03:25 Patient admitted, IV remains in place. intact, No redness/swelling at site. rg5 Administered Medications: 00:13 Drug: HYDROcodone-acetaminophen PO 5 mg-325 mg 1 tabs PO once Route: PO; rg5 02:08 Follow up: Response: No adverse reaction; Pain is decreased rg5 Medication: 01:30 VIS not applicable for this client. rg5 Outcome: 03:12 Decision to Hospitalize by Provider. ms3 03:25 Admitted to ER Hold. Please see [facility] for further documentation. rg5 03:25 Condition: stable 03:25 Instructed on the need for admit, 04/14 02:45 Patient left the ED. ay Signatures: Dispatcher [employer] EDYoni Tatum Marcus, DO DO ms3 Bia Garcia [email or web address] Nohemy Clark RN RN me1 Chata Gibbons Rommel, RN RN rg5 Sindy Obregon RN RN ay Corrections: (The following items were deleted from the chart) 04/12 21:20 21:15 BP 113 / 76; Pulse 102bpm; Resp 16bpm; Pulse Ox 97%; Temp 98.3F; 53.52 kg; Pain me1 12/25, Adult; me1
--- NOTE | 2024-04-13 03:13 | EDPHYS ---
Physician Documentation [facility] Name: Geetha Khan Age: 48 yrs Sex: Female : 1975 Arrival Date: 04/12/2024 Time: 20:58 Bed 15 Private MD: ED Physician Kishor Hoyos HPI: 04/12 22:12 This 48 yrs old Female presents to ER via EMS with complaints of Chest Pain. ms3 22:12 Geetha Khan presents to the Emergency Department due to stress related to her ms3 upcoming birthday, which is in nearly 48 hours. She reports experiencing chest pain with a discomfort level of 10 out of 10 on the pain scale. She denies nausea and vomiting. Ms. Khan mentions having anxiety but reports no other medical problems. . 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 - Infectious Disease History:: Denies. - Social history:: Smoking status: Patient reports the use of cigarette tobacco products, denies chronic smoking, but will smoke occasionally. ROS: 22:12 Constitutional: Negative for fever, and chills. ms3 22:12 Respiratory: Negative for shortness of breath, cough, wheezing, and pleuritic chest pain, Abdomen/GI: Negative for abdominal pain, nausea, vomiting, diarrhea, and constipation, MS/Extremity: Negative for injury and deformity, 22:12 Cardiovascular: Positive for chest pain, 22:12 Psych: Positive for anxiety, Exam: 22:12 Constitutional: This is a well developed, well nourished patient who is awake, alert, ms3 and in no acute distress. Cardiovascular: Regular rate and rhythm with a normal S1 and S2. No gallops, murmurs, or rubs. Normal PMI, no JVD. No pulse deficits. Respiratory: Lungs have equal breath sounds bilaterally, clear to auscultation and percussion. No rales, rhonchi or wheezes noted. No increased work of breathing, no retractions or nasal flaring. Abdomen/GI: Soft, non-tender, with normal bowel sounds. No distension or tympany. No guarding or rebound. No evidence of tenderness throughout. Skin: Warm, dry with normal turgor. Normal color with no rashes, no lesions, and no evidence of cellulitis. MS/ Extremity: Pulses equal, no cyanosis. Neurovascular intact. Full, normal range of motion. 04/13 00:00 ECG was reviewed by the Attending Physician. ms3 Vital Signs: 04/12 21:15 BP 113 / 76; Pulse 102; Resp 16; Temp 98.3; Pulse Ox 97% ; Weight 53.52 kg; Height 5 me1 ft. 2 in. ; Pain 10/10; 04/13 02:00 BP 106 / 74; Pulse 68; Resp 17; Temp 98(O); Pulse Ox 98% on R/A; Pain 0/10; rg5 04/12 21:15 Body Mass Index 21.58 (53.52 kg, 157.48 cm) va1 04/12 21:15 Pain Scale: Adult me1 04/13 02:00 Pain Scale: Adult rg5 [place] Coma Score: 01:30 Eye Response: spontaneous(4). Motor Response: obeys commands(6). Verbal Response: rg5 oriented(5). Total: 15. MDM: 04/12 21:22 Medical Screening Exam initiated ms3 22:12 Differential diagnosis: abnormal EKG, acute myocardial infarction, anxiety. ms3 04/13 03:13 HEART Score: History: Slightly Suspicious (0), ECG: Normal (0), Age: > 45 and < 65 ms3 years (1), Risk Factors: 1 or 2 risk factors (1), Troponin: > 1 and < 3 x normal limit (1), Total Score = 3. The patient was not given aspirin in the Emergency Department. Data reviewed: vital signs, nurses notes, lab test result(s), EKG, radiologic studies, and as a result, I will admit patient. Consideration of Admission/Observation Patient was admitted/placed on observation. Management of patient was discussed with the following: Hospitalist: Dr Barron. I considered the following discharge prescriptions or medication management in the emergency department Medications were administered in the Emergency Department. See MAR. Independent interpretation of the following test(s) in the Emergency Department EKG: See my EKG interpretation above. Counseling: I had a detailed discussion with the patient and/or guardian regarding the historical points, exam findings, and any diagnostic results supporting the discharge/admit diagnosis, lab results, radiology results, the need for further work-up and treatment in the hospital. ED course: Discussed case with Dr Barron and he accepts patient. Discussed with patient mild elevation in Troponin trending slightly up. . 04/12 21:16 Order name: Basic Metabolic Panel; Complete Time: ms3 04/12 21:16 Order name: CBC with Diff; Complete Time: 23:39 ms3 04/12 21:16 Order name: Troponin HS; Complete Time: ms3 04/12 23:42 Order name: Urinalysis W/Microscopic ms3 04/12 23:42 Order name: Blood Culture Adult (2) ms3 04/12 23:42 Order name: Lactate w/ 2H reflex if indic. ms3 04/12 23:42 Order name: Protime (+inr) ms3 04/12 23:42 Order name: Ptt, Activated ms3 04/13 00:58 Order name: Liver (Hepatic) Function; Complete Time: EDMS 04/13 01:27 Order name: Troponin High Sensitivity ms3 04/13 03:32 Order name: Basic Metabolic Panel EDMS 04/13 03:32 Order name: Basic Metabolic Panel EDMS 04/13 03:32 Order name: CBC with Automated Diff EDMS 04/13 03:32 Order name: CBC with Automated Diff EDMS 04/13 03:32 Order name: Comprehensive Metabolic Panel EDMS 04/13 03:32 Order name: Comprehensive Metabolic Panel EDMS 04/13 03:32 Order name: Lipid Profile EDMS 04/13 03:32 Order name: Lipid Profile EDMS 04/13 03:32 Order name: Troponin High Sensitivity EDMS 04/13 03:32 Order name: Troponin High Sensitivity EDMS 04/13 03:32 Order name: Troponin High Sensitivity EDMS 04/13 03:32 Order name: Troponin High Sensitivity EDMS 04/13 03:32 Order name: Troponin High Sensitivity EDMS 04/12 23:41 Order name: CXR XRAY ms3 04/12 21:16 Order name: EKG; Complete Time: 21:16 ms3 04/13 03:32 Order name: CONS Physician Consult EDMS 04/13 03:32 Order name: EKG Electrocardiogram EDMS 04/13 03:32 Order name: EKG Electrocardiogram EDMS 04/13 03:32 Order name: EKG Electrocardiogram EDMS 04/13 03:32 Order name: EKG Electrocardiogram EDMS 04/12 21:16 Order name: Cardiac monitoring; Complete Time: 00:26 ms3 04/12 21:16 Order name: EKG - Nurse/Tech; Complete Time: 23: ms3 04/12 21:16 Order name: IV Saline Lock; Complete Time: 23: ms3 04/12 21:16 Order name: Labs collected and sent; Complete Time: 23: ms3 04/12 21:16 Order name: O2 Per Protocol; Complete Time: 00:26 ms3 04/12 21:16 Order name: O2 Sat Monitoring; Complete Time: 00:26 ms3 04/12 23:42 Order name: Accucheck; Complete Time: 01:33 ms3 04/12 23:42 Order name: IV Saline Lock - Large Bore; Complete Time: 00:11 ms3 04/12 23:42 Order name: Vital Signs; Complete Time: : ms3 EC:00 Rate is 90 beats/min. Rhythm is regular. Left axis deviation noted. WI interval is ms3 normal. QRS interval is normal. Clinical impression: NSR w/ Non-specific ST/T Changes. Interpreted by me. Reviewed by me. Administered Medications: 00:13 Drug: HYDROcodone-acetaminophen PO 5 mg-325 mg 1 tabs PO once Route: PO; rg5 02:08 Follow up: Response: No adverse reaction; Pain is decreased rg5 Disposition Summary: 04/13/24 03:12 Hospitalization Ordered Notes: Hospitalization Status: Observation ms3 Provider: Jessica Barron ms3 Condition: Stable ms3 Problem: new ms3 Symptoms: are unchanged ms3 Bed/Room Type: Standard ms3 Location: Telemetry/MedSurg (observation)(04/13/24 23:34) kmf Room Assignment: [facility](04/13/24 23:34) km Diagnosis - Elevated troponin ms3 - Chest pain ms3 Forms: - Medication Reconciliation Form ms3 - SBAR form ms3 - Leadership Thank You Letter ms3 Signatures: Dispatcher [employer] EDMS Soha, Kishor, DO DO ms3 Autumn Rodriguez rv1 Nohemy Clark, RN RN va1 Phuong Day [facility] Hakan Crowley, YANETH RN rg5 Corrections: (The following items were deleted from the chart) 00:58 04/12 23:42 HEPATIC FUNCTION+C.LAB.BRZ ordered. EDMS EDMS 04/13 01: 01:27 Troponin High Sensitivity+C.LAB.BRZ ordered. EDMS EDMS 03:18 03:12 Telemetry/MedSurg (observation) ms3 rv1 03:18 03:12 ms3 rv1 23:34 03:18 BR ER HOLD rv1 kmf 23:34 03:18 ERHOLD- rv1 kmf
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
[2024-04-13] MEDS ORDERED: ALBUTEROL 2.5 MG/3 ML NEB SOL NEB PRN (03:22)
[2024-04-13] MEDS: NITROGLYCERIN 1 GM PKT TD SCH (03:24)
[2024-04-13] MEDS: CLOPIDOGREL 75 MG TABLET PO SCH (03:27)
[2024-04-13] MEDS ORDERED: HYDRALAZINE HCL 20 MG/ML VIAL IV PRN (03:29)
[2024-04-13] MEDS ORDERED: CLOPIDOGREL 75 MG TABLET ONE (04:17)
[2024-04-13] MEDS ORDERED: NICOTINE 21 MG/PAT TD ONE (04:17)
[2024-04-13] MEDS ORDERED: NITROGLYCERIN 1 GM PKT TD ONE ×3 (04:18→14:52)
[2024-04-13] MEDS: NICOTINE 21 MG/PAT TD SCH (04:32)
--- NOTE | 2024-04-13 06:38 | RAD REPORT ---
EXAM: XR Chest, 1 View CLINICAL HISTORY: The patient is 48 years old and is Female; COUGH TECHNIQUE: Frontal view of the chest. COMPARISON: No relevant prior studies available. FINDINGS: Lungs: Unremarkable. No consolidation. Pleural space: Unremarkable. No pneumothorax. Heart: Unremarkable. Mediastinum: Unremarkable. Normal mediastinal contour. Bones/joints: Old left rib fractures. IMPRESSION: No acute findings in the chest. Electronically signed by: Scott Reid MD 04/13/2024 01:32 AM [facility] 8 Due to temporary technical issues with the PACS/[employer] reporting system, reports are being edwin d by the in-house radiologist without review as a courtesy to ensure prompt reporting the interpreting radiologist is fully responsible for the content of the report. Transcribed Date/Time: 04/13/2024 6:37 AM
[2024-04-13] MEDS: PANTOPRAZOLE 40MG TABLET PO SCH (07:30)
[2024-04-13] MEDS ORDERED: carBAMazepine 200 MG TAB ONE (07:50)
[2024-04-13] MEDS ORDERED: METOPROLOL TAR 25 MG TAB ONE (07:50)
[2024-04-13] MEDS ORDERED: PANTOPRAZOLE 40MG TABLET PO ONE (07:50)
[2024-04-13] MEDS ORDERED: DIAZEPAM 5 MG TABLET ONE (07:51)
[2024-04-13] MEDS ORDERED: ENOXAPARIN 40 MG/0.4 ML SQ ONE (07:51)
[2024-04-13] MEDS: HYDROCODONE/APAP 5/325 MG TAB PO PRN (07:56)
[2024-04-13] MEDS: METOPROLOL TAR 25 MG TAB PO SCH (07:56)
[2024-04-13] MEDS: ENOXAPARIN 40 MG/0.4 ML SQ SCH (07:57)
[2024-04-13] MEDS: DIAZEPAM 5 MG TABLET PO SCH (07:57)
[2024-04-13] MEDS: carBAMazepine 200 MG TAB PO SCH (07:57)
[2024-04-13] MEDS: FLU (Fluarix Triv) TS24-25(6MOS UP)/PF 45 MCG/0.5 ML Syringe IM ONE (08:00)
--- NOTE | 2024-04-13 09:12 | P.PN ---
Date of Service: 04/13/24 rec'd this am without any distress, sleeping in ED hold. She denies any pain or s/s at this time.
[2024-04-13] MEDS ORDERED: MORPHINE 2 MG/ML SYR ONE ×3 (11:00→20:02)
[2024-04-13] MEDS: MORPHINE 2 MG/ML SYR IV PRN (11:04)
[2024-04-13] MEDS: ATORVASTATIN 40 MG TAB PO SCH (21:00)
[2024-04-14] MEDS ORDERED: METOPROLOL TAR 25 MG TAB ONE (00:10)
[2024-04-14] MEDS ORDERED: carBAMazepine 200 MG TAB ONE (00:11)
[2024-04-14] MEDS ORDERED: ATORVASTATIN 40 MG TAB ONE (00:11)
[2024-04-14 02:52] VITALS: BMI 21.7
[2024-04-14] MEDS ORDERED: REGADENOSON 0.4 MG/5 ML SYR IV ONE (09:02)
[2024-04-14] MEDS ORDERED: ONDANSETRON 4 MG/2 ML VIAL ONE (09:27)
[2024-04-14] MEDS: ONDANSETRON 4 MG/2 ML VIAL IV PRN (09:33)
[2024-04-14 11:09] LABS: Absolute Eosinophils 0.1 K/uL (0-0.5); Absolute Lymphocytes (CBC) 1.9 K/uL (0.7-4.9); Absolute Monocytes 0.8 K/uL (0.1-1.3); Absolute Neutrophil 5.2 K/uL (1.8-8.0); Basophils % 0.3 % (0-1.3); Eosinophils % 0.9 % (0-4.4); Hematocrit 30.8 % (36.0-45.0); Hemoglobin 10.6 g/dL (12.0-15.0); Lymphocytes % 23.5 % (15.3-44.8); MCHC 34.6 g/dL (32.0-36.0); MCV 98.3 fL (80-100); Monocytes % 10.1 % (3.3-12.3); Neutrophils % 65.2 % (41.7-73.7); Platelets 197 thou/uL (152-406); RBC Red Blood Cell Count 3.13 M/uL (3.86-4.86); Red Cell Distribution Width 13.1 % (12.1-15.2)
[2024-04-14 11:33] LABS: Albumin 3.1 g/dL (3.4-5.0); Albumin/Globulin Ratio 1.1 (1.1-1.8); Anion Gap 5.5 mEq/L (5.0-15.0); Bilirubin Total 0.4 mg/dL (0.2-1.0); Globulin 2.7 g/dL (2.3-3.5); Potassium 4.5 mEq/L (3.5-5.1); Protein, Total 5.8 g/dL (6.4-8.2)
[2024-04-14 12:00] LABS: Band Neutrophils 1 % (0-1); Differential Total Cells Count 100; Eosinophils 1 % (0-3); Lymphocytes 21 % (15-42); Monocytes 8 % (0-10); Segmented Neutrophils 66 % (40-80)
[2024-04-14 12:01] LABS: Atypical Lymphocytes 3 %; Blood Morphology Comment NOT SEEN (NOT SEEN); Platelet Estimate ADEQ
--- NOTE | 2024-04-14 12:08 | RAD REPORT ---
EXAM :Rest Stress Cardiac Imaging CLINICAL HISTORY: Chest pain TECHNIQUE: Rest images: 9.9 mCi technetium 99m sestamibi administered intravenously. Stress images: 32.2 mCi of technetium 99m sestamibi administered intravenously. Cardiac SPECT images obtained COMPARISON: 2022. FINDINGS: The examination is suboptimal secondary to difficulty with patient positioning. Area of diminished radiotracer uptake inferior lateral left ventricular myocardium most likely repres ents attenuation from normal tissue. There are no areas of diminished radiotracer uptake on stress images which demonstrate normal uptake on rest images. Left ventricular ejection fraction equals 49% IMPRESSION: No evidence of a myocardial perfusion defect
[2024-04-14] MEDS: ISOSORBIDE MONO SR 30 MG TAB PO SCH (12:54)
--- NOTE | 2024-04-14 13:26 | ECHO ---
HEIGHT: 5 ft 2 in WEIGHT: 119 lb 0 oz DATE OF STUDY: 04/13/[address]: Flo Gan MD 2-DIMENSIONAL: YES M.MODE: YES DOPPLER: YES COLOR FLOW: YES TDS: NO PORTABLE: YES DEFINITY: NO BUBBLE STUDY: NO DIAGNOSIS: ELEVATED TROPONIN CARDIAC HISTORY: CATHERIZATION: YES SURGERY: NO PROSTHETIC VALVE: NO PACEMAKER: NO MEASUREMENTS (cm) DIASTOLIC (NORMALS) SYSTOLIC (NORMALS) IVSd 1.3 (0.6-1.2) LA Diam 2.3 (1.9-4.0) LVEF 60-65% LVIDd 3.3 (3.5-5.7) LVIDs 1.9 (2.0-3.5) %FS 43% LVPWd 1.4 (0.6-1.2) Ao Diam 2.8 (2.0-3.7) 2 DIMENSIONAL ASSESSMENT: RIGHT ATRIUM: NORMAL LEFT ATRIUM: NORMAL RIGHT VENTRICLE: NORMAL LEFT VENTRICLE: MODERATE LEFT VENTRICULAR HYPERTROPHY TRICUSPID VALVE: NORMAL MITRAL VALVE: NORMAL PULMONIC VALVE: NORMAL AORTIC VALVE: NORMAL PERICARDIAL EFFUSION: NONE AORTIC ROOT: NORMAL LEFT VENTRICULAR WALL MOTION: NORMAL. DOPPLER/COLOR FLOW: GRADE I DIASTOLIC DYSFUNCTION. COMMENTS: 1. MODERATE CONCENTRIC LEFT VENTRICULAR HYPERTROPHY. 2. NORMAL LEFT VENTRICULAR SYSTOLIC FUNCTION, EJECTION FRACTION 60-65%, NORMAL WALL MOTION. 3. GRADE I DIASTOLIC DYSFUNCTION. 4. NORMAL FILLING PRESSURE. TECHNOLOGIST: JACINDA BILL
--- NOTE | 2024-04-14 14:07 | TREADPHA ---
DX: CHEST PAIN Date of Study: 04/14/24 Ht: 5' 2 " Wt: 119 lb 0 oz Consulting Physician: CARMENCITA MEDICATIONS: LIPITOR, PLAVIX, TEGRETOL, LOVENOX, LOPRESSOR, APRESOLINE HISTORY: HYPERTENSION, HYPERLIPEDEMIA PHYSICIAL EXAMINATION: RESTING B.P.: 118/90 RESTING H.R.: 62 RESTING EKG: PROTOCOL: LEXISCAN EXERCISE TIME: 3:30 B.P. AT PEAK STRESS: 61/51 IMPRESSION: LEXSICAN STRESS TEST PERFORMED ORDERED. CARDIOLITE INJECTED PER PROTOCOL. PATIENT COMPLAINTS OF LIGHT HEADEDNESS DURING PROCEDURE, NAUSEA DURING PROCEDURE. ZOFRAN 4mg IV x 1 DOSE GIVEN ON MAY. PATIENT COMPLAINTS OF DIZZINESS AND NAUSEA POST PROCEDURE. NO SUPRA VENTRICULAR TACHYCARDIA, VENTRICULAR TACHYCARDIA OR ARRHYTHMIAS NOTED.
--- NOTE | 2024-04-14 15:58 | RAD REPORT ---
Abdomen Exam Limited: 04/14/2024 2:26 PM CLINICAL HISTORY: transaminitis/CP STUDY: Limited right upper quadrant ultrasound of abdomen. COMPARISON: 12/27/2023 FINDINGS: Liver: Within normal limits. Bile ducts: Extrahepatic biliary ductal dilatation which may be from the post-cholecystectomy state. Common bile duct measures 6 mm. Gallbladder: Surgically absent. IMPRESSION: Cholecystomy. The common bile duct measures 6 mm which is mildly dilated but may be within normal baker its given the postcholecystectomy state. Correlate with LFTs. If abnormal, could consider MRCP for further evaluation.
--- NOTE | 2024-04-14 16:13 | P.DS ---
Admission Date: 04/14/24 Discharge Date: 04/15/24 Disposition: ROUTINE DISCHARGE Discharge Condition: GOOD Reason for Admission: Left-sided chest pain Consultations: Dr. Garay Procedures: Stress test Brief History of Present Illness: 48-year-old female past medical history of hypertension, COPD, chronic tobacco use, CVA in the past, seizure disorder, recurrent chest pain but cardiac cath-15 months ago was negative with only 30% RCA lesion, intermittent elevation in troponin who presented to the emergency room today because 1 day history of left-sided chest pain. Patient rated chest pain at about 10 out of 10. States chest pain is sharp nonradiating. No associated nausea vomiting or dizziness. She denies any shortness of breath. On arrival in the ED she received Lupton with no change in chest pain pattern. She denies any headache or dizziness now. She reports recent stress related to anxiety. She denies any personal or family history of CAD. She states she has never had a cardiac cath in the past(although last cardiac cath findings noted above) On arrival in the ED, vital signs are stable, EKG shows normal sinus rhythm with occasional PVCs but LVH pattern. Troponin was 59 with repeat up to of 65. BMP was unremarkable She has been admitted for atypical chest pain Hospital Course: Ms. Khan was evaluated by Dr. Garay, she had a stress test this morning with no reversible ischemia and a normal echo except for moderate left ventricular hypertrophy with normal EF, mild DD. Troponins x 3 have trended down to normal. Imdur 30 mg p.o. recommended per cardiology. Patient was ready for discharge however a.m. labs reveal significant elevation in the transaminases overnight. She has had a cholecystectomy but this is highly suggestive of a biliary stone. Abdominal ultrasound showed a CBD of 0.6 cm. We were going to order an MRCP; but, as it is the patient's birthday she would like to go home. She chose to stay for inpatient MRCP, this am transaminaes trending down. Mild elevation in creatinine. Will give NS IVF until MRCP as EF normal. 04/15/2024 MRCP normal with prominent caliber bile duct thought to be reservoir postcholecystectomy. Transaminases trending down this morning. We will discharge patient to follow-up with her PCP. Vital Signs/Physical Exam: Temp Pulse Resp BP Pulse Ox 97.3 F 62 20 106/61 98 04/14/24 12:00 04/14/24 12:00 04/14/24 14:28 04/14/24 12:00 04/14/24 14:28 General: Alert, In no apparent distress, Oriented x3 HEENT: Atraumatic, Normocephalic Neck: Supple Respiratory: Clear to auscultation bilaterally, Normal air movement Cardiovascular: Normal pulses, Regular rate/rhythm, Systolic murmur Capillary refill: <2 Seconds Gastrointestinal: Soft and benign Musculoskeletal: No clubbing, No swelling Integumentary: No rashes Neurological: Normal speech, Normal tone, Normal affect Lymphatics: No axilla or inguinal lymphadenopathy External genitalia: Deferred Rectal: Deferred Laboratory Data at Discharge: WBC 7.90 thou/uL (4.3-10.9) 04/14/24 10:44 Hgb 10.6 g/dL (12.0-15.0) L 04/14/24 10:44 Hct 30.8 % (36.0-45.0) L 04/14/24 10:44 Plt Count 197 thou/uL (152-406) 04/14/24 10:44 PT 10.0 SECONDS (9.4-12.5) 04/13/24 01:03 INR 0.95 04/13/24 01:03 APTT 28.5 SECONDS (24.3-36.9) 04/13/24 01:03 Sodium 134 mEq/L (136-145) L 04/14/24 10:44 Potassium 4.5 mEq/L (3.5-5.1) 04/14/24 10:44 BUN 19 mg/dL (7-18) H 04/14/24 10:44 Creatinine 1.11 mg/dL (0.55-1.02) H 04/14/24 10:44 Glucose 89 mg/dL (74-106) 04/14/24 10:44 Total Bilirubin 0.4 mg/dL (0.2-1.0) 04/14/24 10:44 AST 518 U/L (15-37) H 04/14/24 10:44 ALT 264 U/L (13-56) H 04/14/24 10:44 Alkaline Phosphatase 255 U/L (45-117) H 04/14/24 10:44 Triglycerides 91 mg/dL (<150) 04/14/24 10:44 Cholesterol 168 mg/dL (<200) 04/14/24 10:44 HDL Cholesterol 94 mg/dL (40-60) H 04/14/24 10:44 Cholesterol/HDL Ratio 1.79 04/14/24 10:44 Home Medications: Carbamazepine [Tegretol] 200 mg PO BID 12/28/23 Diazepam [Valium] 5 mg DAILY 12/28/23 Metoprolol Tartrate [Lopressor*] 12.5 mg BID 12/28/23 Pantoprazole Sodium 40 mg DAILY 12/28/23 hydrOXYzine HCL [Atarax*] 25 mg Q6HR 12/28/23 traMADol HCL [Ultram*] 50 mg Q8HR 12/28/23 Ensure Enlive 237 ml PO BID #30 can 01/03/24 Mometasone/Formoterol [Dulera 200 Mcg/5 Mcg Inhaler] 2 puff IH BID #1 inhaler 01/03/24 Mupirocin Calcium [Bactroban Nasal*] 1 appl THOMAS BID #1 tube 01/03/24 Albuterol Neb [Proventil 0.083% Neb Soln] 2.5 mg NEB Q6HP PRN #60 amp 03/12/24 Atorvastatin Calcium [Lipitor] 40 mg PO BEDTIME tab 03/12/24 Hydrocodone 10/APAP 325 [[place] 10325*] 1 tab PO Q6H PRN #30 tab 03/12/24 Ipratropium Neb [Atrovent*] 0.5 mg NEB [id number] PRN #60 amp 03/12/24 Nebulizer 1 each MC DAILY #1 ea 03/12/24 Nebulizer Accessories [Aeroneb Go] 1 each MC DAILY #1 ea 03/12/24 Aspirin [Aspirin EC 81 MG] 81 mg PO DAILY #30 tab 04/10/24 Cyanocobalamin/Cobamamide [Vitamin B-12 5,000 Mcg Tab Sl] 1 each SL DAILY #30 tab 04/10/24 Hydrocodone 5/APAP 325 [[place] 5/325] 1 tab PO Q6H PRN #20 tab 04/10/24 Magnesium Chloride [Slow-Mag*] 128 mg PO BID #60 tab 04/10/24 Isosorbide Dinitrate 30 mg PO DAILY #90 tab 04/15/24 New Medications: Isosorbide Dinitrate 30 mg PO DAILY #90 tab Physician Discharge Instructions: 48-year-old female past medical history of hypertension, COPD, chronic tobacco use, CVA in the past, seizure disorder, recurrent chest pain but cardiac cath-15 months ago was negative with only 30% RCA lesion, intermittent elevation in troponin who presented to the emergency room today because 1 day history of left-sided chest pain. Patient rated chest pain at about 10 out of 10. States chest pain is sharp nonradiating. No associated nausea vomiting or dizziness. She denies any shortness of breath. On arrival in the ED she received Lupton with no change in chest pain pattern. She denies any headache or dizziness now. She reports recent stress related to anxiety. She denies any personal or family history of CAD. She states she has never had a cardiac cath in the past(although last cardiac cath findings noted above) On arrival in the ED, vital signs are stable, EKG shows normal sinus rhythm with occasional PVCs but LVH pattern. Troponin was 59 with repeat up to of 65. BMP was unremarkable She has been admitted for atypical chest pain Happy Birthday!!! Ms. Khan was evaluated by Dr. Garay, she had a stress test this morning with no reversible ischemia and a normal echo except for moderate left ventricular hypertrophy with normal EF, mild DD. Troponins x 3 have trended down to normal. Imdur 30 mg p.o. recommended per cardiology. Patient was ready for discharge however a.m. labs reveal significant elevation in the transaminases overnight. She has had a cholecystectomy but this is highly suggestive of a biliary stone. Abdominal ultrasound showed a CBD of 0.6 cm. We were going to order an MRCP; but, as it is the patient's birthday she would like to go home. She chose to stay for inpatient MRCP, this am transaminaes trending down. Mild elevation in creatinine. Will give NS IVF until MRCP as EF normal. 04/15/2024 MRCP normal with prominent caliber bile duct thought to be reservoir postcholecystectomy. Transaminases trending down this morning. We will discharge patient to follow-up with her PCP. Diet: AHA Activity: Ad adam Followup: Obed Eddy, [Primary Care Provider] - Alan Garay MD [ACTIVE - CAN ADMIT] -
--- NOTE | 2024-04-14 17:31 | P.PN ---
Date of Service: 04/14/24 Subjective slept okay but continue with chest pain Review of Systems Cardiovascular: Chest Pain Physical Examination - Physical Exam General: Alert, In no apparent distress, Oriented x3, Cooperative HEENT: Atraumatic, Normocephalic, PERRLA Neck: 2+ carotid pulse no bruit, JVD not distended Respiratory: Clear to auscultation bilaterally, Normal air movement Cardiovascular: Normal pulses, Regular rate/rhythm, Normal S1 S2, systolic murmur Gastrointestinal: Normal bowel sounds, Soft and benign, Non-distended, No ascites, No tenderness Musculoskeletal: No clubbing, No swelling Integumentary: No rashes, No breakdown Neurological: Normal speech, Normal strength at 5/5 x4 extr, Normal tone, Sensation intact, Cranial nerves 3-12 intact Assessment and Plan - Problems (Diagnosis) (1) DYLAN (acute kidney injury) Current Visit: No Status: Acute (2) Chest pain Current Visit: No Status: Acute (3) Costochondritis Current Visit: No Status: Acute (4) Elevated troponin Current Visit: No Status: Acute - Plan Impression Atypical chest pain Elevated troponin Hypertension Chronic tobacco use History of COPD CKD 3A Transaminitis Plan Admit patient to observation - change to inpatient telemetry - Stress test ordered on admission negative for reversible ischemia, ECHO ordered on admission negative except LVH and mild DD Trend cardiac enzymes - trended from slightly elevated to normal Mild troponin elevation noted although previous elevated troponin in the past Cardiology consult with Dr. Garay - recommended Imdur 30mg po daily 04/14/24 Noted severe, sudden elevation in AST/ALT/Alk phos - pt is post Elena - obtained US, shows mildly dilated CBD. Will obtain MRCP in am (04/15/24) Lovenox for DVT prophylaxis Full code Smoking cessation advised, start nicotine patch Creatinine borderline stable, continue to monitor - improving Possible hospital stay for more than 24 hours Total time spent in evaluation greater than 70 minutes Discharge Plan: Home Plan to discharge in: 48 Hours - Advance Directives Does patient have a Living Will: No Does patient have a Durable POA for Healthcare: No - Code Status/Comfort Care Code Status: Full Code
[2024-04-14] MEDS: ACETAMINOPHEN 500 MG TAB PO PRN (18:21)
[2024-04-14] MEDS: DULERA 200/5 (MOMETASONE/FORMOTEROL) INHALER IH SCH (21:20)
[2024-04-14] MEDS: MAGNESIUM CHLORIDE 64 MG TAB PO SCH (21:21)
[2024-04-15 07:36] LABS: Absolute Basophils 0.1 K/uL (0-0.5); Absolute Eosinophils 0.2 K/uL (0-0.5); Absolute Lymphocytes (CBC) 2.1 K/uL (0.7-4.9); Absolute Monocytes 0.7 K/uL (0.1-1.3); Absolute Neutrophil 6.1 K/uL (1.8-8.0); Basophils % 0.5 % (0-1.3); Eosinophils % 1.9 % (0-4.4); Hematocrit 30.7 % (36.0-45.0); Hemoglobin 10.3 g/dL (12.0-15.0); MCH 33.5 pg (27.0-35.0); MCHC 33.6 g/dL (32.0-36.0); MCV 99.8 fL (80-100); Monocytes % 7.9 % (3.3-12.3); Neutrophils % 66.7 % (41.7-73.7); Platelets 210 thou/uL (152-406); RBC Red Blood Cell Count 3.07 M/uL (3.86-4.86); Red Cell Distribution Width 13.6 % (12.1-15.2)
[2024-04-15] MEDS: CYANOCOBALAMIN 1,000 MCG TAB PO SCH (07:37)
[2024-04-15 08:06] LABS: Albumin 2.9 g/dL (3.4-5.0); Anion Gap 11.1 mEq/L (5.0-15.0); Bilirubin Total 0.3 mg/dL (0.2-1.0); Globulin 2.8 g/dL (2.3-3.5); Potassium 4.1 mEq/L (3.5-5.1); Protein, Total 5.7 g/dL (6.4-8.2)
[2024-04-15 09:23] VITALS: O2SAT 97
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
[2024-04-15] MEDS: NA CHLORIDE 0.9% 1,000 ML IV SCH (10:41)
--- NOTE | 2024-04-15 12:37 | EKG ---
Test Date: 2024-04-12 Test Time: 22:56:40 Metal Ceiling Builder: ALEIDA MEASUREMENT RESULTS: Intervals: Rate: 90 IA: 160 QRSD: 82 QT: 360 QTc: 440 [place]: P: 48 IA: 160 QRS: 0 T: 147 INTERPRETIVE STATEMENTS: Sinus rhythm with occasional premature ventricular complexes Left ventricular hypertrophy with repolarization abnormality Abnormal ECG Compared to ECG 04/08/2024 19:05:33 Ventricular premature complex(es) now present Electronically Signed On 04-15-24 12:33:02 [employer] by Alan Garay
[2024-04-15 18:30] VITALS: BP 105/57; TEMP 97.7
--- NOTE | 2024-04-15 18:42 | RAD REPORT ---
EXAMINATION: MR CHOLANGIOGRAM CLINICAL INDICATION: Female, 49 years old. [facility] N transaminitis/cp TECHNIQUE: Multiplanar, multisequence MR imaging of the abdomen without intravenous contrast, and wit h specific attention to the biliary system. Unless otherwise specified, incidental findings do not require dedicated imaging follow-up. 3D MIP reconstruction performed. COMPARISON: Abdomen ultrasound 04/14/2024. FINDINGS: GALLBLADDER: Surgically absent. BILE DUCTS: Prominent caliber of the common bile duct and common hepatic duct, with smooth tapering t owards the ampulla. Common bile duct measures up to 10 mm. No filling defects, or evidence of wall irregularity or stricture. LIVER: Normal in size, contour, and signal without evidence of fatty infiltration or iron deposition. No focal lesion. PANCREAS: Normal signal. No mass, ductal dilation, or michael-pancreatic fluid. SPLEEN: Normal size. No focal lesion. ADRENALS: Normal; no mass. KIDNEYS: Normal size and contour. No hydronephrosis. LYMPH NODES: No lymphadenopathy. ADDITIONAL FINDINGS: None. IMPRESSION: Prominent common bile duct which may relate to postcholecystectomy reservoir effect. No findings to s uggest choledocholithiasis or a stricture.
--- NOTE | 2024-04-21 12:17 | EKG ---
Test Date: 2024-04-19 Test Time: 20:46:41 Resistor Tester: JNOAS MEASUREMENT RESULTS: Intervals: Rate: 82 ME: 164 QRSD: 84 QT: 386 QTc: 450 [place]: P: 56 ME: 164 QRS: 6 T: 148 INTERPRETIVE STATEMENTS: Normal sinus rhythm Left ventricular hypertrophy with repolarization abnormality Abnormal ECG Compared to ECG 04/18/2024 03:51:18 No significant changes Electronically Signed On 04-21-24 12:14:46 SANITOR by Alan Garay
--- NOTE | 2024-04-21 12:24 | EKG ---
Test Date: 2024-04-18 Test Time: 03:51:18 Speedometer Mechanic: MEASUREMENT RESULTS: Intervals: Rate: 78 VA: 190 QRSD: 88 QT: 416 QTc: 474 [place]: P: 27 VA: 190 QRS: 0 T: 161 INTERPRETIVE STATEMENTS: Normal sinus rhythm Left ventricular hypertrophy with repolarization abnormality Abnormal ECG Compared to ECG 04/17/2024 17:11:13 No significant changes Electronically Signed On 04-21-24 12:19:01 SUPPLY CHAIN CONSULTANT by Alan Garay
== END 2024-04-15 21:10 | disposition home or self-care (01) | DRG 683 ==
LOC: ER 20:58 → ERHOLD 04-13 03:22 → 4TH 04-14 02:14 → OBSVTOIN 04-14 14:52
PROVIDERS: ADMIT Internal Medicine; ATTEND Internal Medicine
DX: N17.9 Acute kidney failure, unspecified (principal); I13.0 Hypertensive heart and chronic kidney disease with heart failure and stage 1 through stage 4 chronic kidney disease, or unspecified chronic kidney disease; I50.32 Chronic diastolic (congestive) heart failure; N18.31 Chronic kidney disease, stage 3a; F41.9 Anxiety disorder, unspecified; I49.3 Ventricular premature depolarization; M94.0 Chondrocostal junction syndrome [Tietze]; I25.2 Old myocardial infarction; J44.9 Chronic obstructive pulmonary disease, unspecified; F17.210 Nicotine dependence, cigarettes, uncomplicated; R74.01 Elevation of levels of liver transaminase levels; R79.89 Other specified abnormal findings of blood chemistry; Z88.6 Allergy status to analgesic agent; Z79.52 Long term (current) use of systemic steroids; Z79.82 Long term (current) use of aspirin; Z86.73 Personal history of transient ischemic attack (TIA), and cerebral infarction without residual deficits; Z91.013 Allergy to seafood; Z91.018 Allergy to other foods; Z79.899 Other long term (current) drug therapy
CPT/HCPCS: 36415; 71045; 74181; 76705; 78452; 80048; 80053; 80061; 80076; 83605; 84484; 85025; 85610; 85730; 87040; 93005; 93017; 93306; 99285; A9500; G0378; J1650; J2270; J2405; J2785; J3535; J7030

== ENCOUNTER 2024-04-16 19:31 | Emergency (ER) | payer OTHER ==
--- NOTE | 2024-04-16 20:10 | EDPHYS ---
Physician Documentation [facility] Name: Geetha Khan Age: 49 yrs Sex: Female : 1975 Arrival Date: 04/16/2024 Time: 19:31 Bed IW2 Private MD: ED Physician Kye De Anda HPI: 04/16 22:48 This 49 yrs old Female presents to ER via EMS with complaints of Chest Pain. sb4 22:48 chronic chest pain. was admitted recently for chest pain, had negative cardiac work up. sb4 no further cardiac intervention was recommended. has not yet filled her new prescriptions. has not taken any medications for the pain. is smiling drinking coffee during triage. Historical: - Allergies: 20:11 Aspirin; cm10 20:11 CRANBERRY; cm10 20:11 FISH PRODUCT DERIVATIVES; cm10 20:11 GRAPEFRUIT; cm10 20:11 SHELLFISH; cm10 - Home Meds: 20:11 amlodipine oral [Active]; atorvastatin oral [Active]; Carbamazepine Oral [Active]; cm10 clopidogrel oral [Active]; lisinopril Oral [Active]; Metoprolol Tartrate Oral [Active]; Nitrostat SL [Active]; quetiapine oral [Active]; - PMHx: 20:11 Cerebrovascular accident; Chronic obstructive lung disease; Hypertensive disorder; cm10 Myocardial infarction; Seizure; - Immunization history:: Adult Immunizations unknown. - Infectious Disease History:: Denies. - Social history:: Smoking status: Patient/guardian denies using tobacco. ROS: 22:50 Constitutional: Negative for fever, chills, and weight loss, sb4 22:50 Cardiovascular: Positive for chest pain, 22:50 All other systems are negative, Exam: 22:50 Constitutional: This is a well developed, well nourished patient who is awake, alert, sb4 and in no acute distress. Head/Face: Normocephalic, atraumatic. Eyes: Extra-ocular motions intact. Periorbital areas with no swelling, redness, or edema. ENT: Mucous membranes moist. Cardiovascular: Regular rate and rhythm with a normal S1 and S2. Respiratory: No increased work of breathing, no retractions or nasal flaring. Skin: Warm, dry with normal turgor. Normal color with no rashes, no lesions, and no evidence of cellulitis. Vital Signs: 20:07 BP 128 / 78; Pulse 97; Resp 15; Temp 98.5(O); Pulse Ox 100% on R/A; Weight 53.52 kg; cm10 Height 5 ft. 3 in. ; Pain 10/10; 20:07 Body Mass Index 20.90 (53.52 kg, 160.02 cm) cm10 20:07 Pain Scale: Adult cm10 MDM: 19:41 Medical Screening Exam initiated sb4 22:52 Data reviewed: vital signs, nurses notes, EKG, and as a result, I will discharge sb4 patient. Counseling: I had a detailed discussion with the patient and/or guardian regarding the historical points, exam findings, and any diagnostic results supporting the discharge/admit diagnosis, the need for outpatient follow up, for definitive care, to return to the emergency department if symptoms worsen or persist or if there are any questions or concerns that arise at home, smoking cessation. 04/16 19:41 Order name: EKG; Complete Time: 19:42 sb4 EC:50 Rate is 94 beats/min. Rhythm is regular, Normal Sinus Rhythm. MI interval is normal at sb4 176 msec. QRS interval is normal at 90 msec. QT interval is normal at 366 msec. No Q waves. T waves are Normal. No ST changes noted. Clinical impression: LVH. Interpreted by me. Reviewed by me. Administered Medications: 20:20 Drug: Acetaminophen PO 1000 mg PO once Route: PO; cm10 20:37 Follow up: Response: No adverse reaction cm10 20:20 Drug: hydrOXYzine PO 25 mg PO once Route: PO; cm10 20:37 Follow up: Response: No adverse reaction cm10 Disposition Summary: 04/16/24 20:09 Discharge Ordered Notes: Location: Home sb4 Problem: an ongoing problem sb4 Symptoms: are unchanged sb4 Condition: Stable sb4 Diagnosis - Chronic chest pain, noncardiac sb4 Followup: sb4 - With: Private Physician - When: 1 week - Reason: Recheck today's complaints, Continuance of care, Re-evaluation by your physician Discharge Instructions: - Discharge Summary Sheet sb4 - Chronic Pain, Adult sb4 Forms: - Patient Portal Instructions sb4 - Leadership Thank You Letter sb4 Signatures: Kalli Bradshaw PA-C PA-C sb4 Kelsey Khan RN RN cm10
[2024-04-16] MEDS ORDERED: ACETAMINOPHEN 500 MG TAB ONE (20:16)
[2024-04-16] MEDS ORDERED: hydrOXYzine HCL 25 MG TAB ONE (20:17)
--- NOTE | 2024-04-16 20:38 | ER ---
Nurse's Notes [facility] Name: Geetha Khan Age: 49 yrs Sex: Female : 1975 Arrival Date: 04/16/2024 Time: 19:31 Bed IW2 Private MD: Diagnosis: Chronic chest pain, noncardiac Presentation: 04/16 20:07 Chief complaint: Patient states: Chest pain and vomiting onset today. pt recently cm10 discharged from hospital. Pt drinking coffee during triage. Coronavirus screen: Client denies travel out of the [place] in the last 14 days. Ebola Screen: Patient denies travel to an Ebola-affected area in the 21 days before illness onset. Initial Sepsis Screen: Does the patient meet any 2 criteria? HR > 90 bpm. Does the patient have a suspected source of infection? No. Patient's initial sepsis screen is negative. Risk Assessment: Do you want to hurt yourself or someone else? Patient reports no desire to harm self or others. Onset of symptoms was April 16, 2024. 20:07 Method Of Arrival: EMS: [facility] 10 20:07 Acuity: CORRINA 3 cm10 Triage Assessment: 20:13 General: Appears in no apparent distress. comfortable, Behavior is calm, cooperative. cm10 Neuro: No deficits noted. Level of Consciousness is awake, alert, obeys commands, Oriented to person, place, time, situation, Appropriate for age. Respiratory: No deficits noted. Airway is patent Respiratory effort is even, unlabored, Respiratory pattern is regular, symmetrical. Historical: - Allergies: 20:11 Aspirin; cm10 20:11 CRANBERRY; cm10 20:11 FISH PRODUCT DERIVATIVES; cm10 20:11 GRAPEFRUIT; cm10 20:11 SHELLFISH; cm10 - Home Meds: 20:11 amlodipine oral [Active]; atorvastatin oral [Active]; Carbamazepine Oral [Active]; cm10 clopidogrel oral [Active]; lisinopril Oral [Active]; Metoprolol Tartrate Oral [Active]; Nitrostat SL [Active]; quetiapine oral [Active]; - PMHx: 20:11 Cerebrovascular accident; Chronic obstructive lung disease; Hypertensive disorder; cm10 Myocardial infarction; Seizure; - Immunization history:: Adult Immunizations unknown. - Infectious Disease History:: Denies. - Social history:: Smoking status: Patient/guardian denies using tobacco. Screenin:36 [facility] ED Fall Risk Assessment (Adult) History of falling in the last 3 months, cm10 including since admission No falls in past 3 months (0 pts) Confusion or Disorientation No (0 pts) Intoxicated or Sedated No (0 pts) Impaired Gait Yes (1 pt) Mobility Assist Device Used Yes (1 pt) Altered Elimination Yes (1 pt) Score/Fall Risk Level 3 or more points = High Risk Oriented to surroundings, Maintained a safe environment, Hourly rounding (assess needs \T\ fall precautionary measures) done. Abuse screen: Denies threats or abuse. Denies injuries from another. Nutritional screening: No deficits noted. Tuberculosis screening: No symptoms or risk factors identified. Assessment: 20:37 Pain: Complains of pain in chest Pain does not radiate. Pain currently is 10 out of 10 cm10 on a pain scale. Pain began suddenly. Vital Signs: 20:07 BP 128 / 78; Pulse 97; Resp 15; Temp 98.5(O); Pulse Ox 100% on R/A; Weight 53.52 kg; cm10 Height 5 ft. 3 in. ; Pain 10/10; 20:07 Body Mass Index 20.90 (53.52 kg, 160.02 cm) cm10 20:07 Pain Scale: Adult cm10 ED Course: 19:37 Patient arrived in ED. jj6 19:41 Kalli Bradshaw PA-C is PHCP. sb4 19:41 Kye De Anda MD is Attending Physician. sb4 20:11 Triage completed. cm10 20:13 Arm band placed on right wrist. Patient placed in waiting room. cm10 20:36 Patient has correct armband on for positive identification. Provided Education on: cm10 follow-up instructions. Cardiac monitoring not applicable on this patient. 20:36 No provider procedures requiring assistance completed. EKG done, by ED staff, reviewed cm10 by Kalli Bradshaw PA-C. Patient did not have IV access during this emergency room visit. Patient maintains SpO2 saturation greater than 95% on room air. Administered Medications: 20:20 Drug: Acetaminophen PO 1000 mg PO once Route: PO; cm10 20:37 Follow up: Response: No adverse reaction cm10 20:20 Drug: hydrOXYzine PO 25 mg PO once Route: PO; cm10 20:37 Follow up: Response: No adverse reaction cm10 Medication: 20:36 VIS not applicable for this client. cm10 Outcome: 20:09 Discharge ordered by . srinivasan 20:36 Discharged to home via wheelchair, Yancy 20:36 Condition: stable 20:36 Discharge instructions given to patient, Instructed on discharge instructions, follow up and referral plans. Demonstrated understanding of instructions, follow-up care, 20:37 Patient left the ED. cm10 Signatures: Bia Garcia Sophia PAGiseleC PA-C Kelsey Stevens, RN RN cm10
[2024-04-17 04:52] VITALS: BP 128/78; TEMP 98.5; O2SAT 100
== END 2024-04-16 20:37 | disposition home or self-care (01) ==
LOC: ER 19:31
DX: R07.89 Other chest pain (principal); I10 Essential (primary) hypertension; J44.9 Chronic obstructive pulmonary disease, unspecified; Z86.73 Personal history of transient ischemic attack (TIA), and cerebral infarction without residual deficits
CPT/HCPCS: 93005; 99284

== ENCOUNTER 2024-04-17 16:35 | Emergency (ER) | payer OTHER ==
--- NOTE | 2024-04-17 17:21 | RAD REPORT ---
EXAM: Chest Single View HISTORY: CHEST PAIN COMPARISON: 04/13/2024 FINDINGS: LUNGS/PLEURA: The lungs are clear. No pleural effusions or pneumothorax. No pulmonary edema. MEDIASTINUM: The mediastinal silhouette is within normal limits. CARDIAC: The cardiac silhouette is within normal limits. UPPER ABDOMEN: No significant abnormality. BONES: No acute abnormality. Remote left rib fractures. LINES/TUBES/OTHER: N/A IMPRESSION: No evidence of acute cardiopulmonary disease.
[2024-04-17] MEDS ORDERED: NA CHLORIDE 0.9% 1,000 ML ONE (17:50)
[2024-04-17 17:53] LABS: Absolute Lymphocytes (CBC) 0.9 K/uL (0.7-4.9); Absolute Monocytes 0.5 K/uL (0.1-1.3); Absolute Neutrophil 5.4 K/uL (1.8-8.0); Basophils % 0.5 % (0-1.3); Eosinophils % 0.1 % (0-4.4); Hematocrit 31.2 % (36.0-45.0); Hemoglobin 10.9 g/dL (12.0-15.0); Lymphocytes % 12.6 % (15.3-44.8); MCV 97.3 fL (80-100); Monocytes % 7.5 % (3.3-12.3); Neutrophils % 79.3 % (41.7-73.7); Platelets 260 thou/uL (152-406); Red Cell Distribution Width 13.4 % (12.1-15.2)
[2024-04-17 18:00] LABS: PT Prothrombin Time 10.1 SECONDS (9.4-12.5); Protime INR 0.96
[2024-04-17 18:12] LABS: Anion Gap 12.8 mEq/L (5.0-15.0); Magnesium 1.7 mg/dL (1.6-2.4); Potassium 3.8 mEq/L (3.5-5.1); Troponin High Sensitivity 47.6 pg/mL (<58.9)
--- NOTE | 2024-04-17 18:18 | ER ---
Nurse's Notes [facility] Name: Geetha Khan Age: 49 yrs Sex: Female : 1975 Arrival Date: 04/17/2024 Time: 16:35 Bed 10 Private MD: Diagnosis: Chest pain, unspecified Presentation: 04/17 16:37 Chief complaint: EMS states: Chest pain,. upper abdominal pain, and N/V since this hb morning, BP 70s/50s, HR 90s, AOx4. Coronavirus screen: At this time, the client does not indicate any symptoms associated with coronavirus-19. Ebola Screen: No symptoms or risks identified at this time. Initial Sepsis Screen: Does the patient meet any 2 criteria? No. Patient's initial sepsis screen is negative. Does the patient have a suspected source of infection? No. Patient's initial sepsis screen is negative. Risk Assessment: Do you want to hurt yourself or someone else? Patient reports no desire to harm self or others. Onset of symptoms was April 17, 2024. 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 - Infectious Disease History:: Denies. - Social history:: Smoking status: Patient denies any tobacco usage or history of. Screenin:10 [facility] ED Fall Risk Assessment (Adult) History of falling in the last 3 months, aa5 including since admission Yes- physiologic fall (2 pts) Confusion or Disorientation No (0 pts) Intoxicated or Sedated No (0 pts) Impaired Gait Yes (1 pt) Mobility Assist Device Used Yes (1 pt) Altered Elimination Yes (1 pt) Score/Fall Risk Level 3 or more points = High Risk Oriented to surroundings, Maintained a safe environment, Educated pt \T\ family on fall prevention, incl call for assistance when getting out of bed, Assessed \T\ reinforced patient's understanding of fall precautions. Abuse screen: Denies threats or abuse. Nutritional screening: No deficits noted. Tuberculosis screening: No symptoms or risk factors identified. Assessment: 17:10 General: Appears comfortable, Behavior is calm, cooperative. Pain: Complains of pain in aa5 chest Pain does not radiate. Pain currently is 10 out of 10 on a pain scale. Quality of pain is described as sharp, Pain began 1 day ago. Is continuous. Neuro: Level of Consciousness is awake, alert, obeys commands, Oriented to person, place, time, situation. Cardiovascular: Heart tones S1 S2 present Rhythm is regular. Respiratory: Airway is patent Respiratory effort is even, unlabored, Respiratory pattern is regular, symmetrical. GI: Abdomen is round non-distended, Bowel sounds present X 4 quads. Abd is soft and non tender X 4 quads. Reports nausea, vomiting. : Brief noted. EENT: No signs and/or symptoms were reported regarding the EENT system. Derm: Skin is pink, warm \T\ dry. Musculoskeletal: left sided paralysis, CVA deficit. 17:54 Reassessment: Patient is alert, oriented x 3, equal unlabored respirations, skin aa5 warm/dry/pink. 18:20 Reassessment: Patient is alert, oriented x 3, equal unlabored respirations, skin aa5 warm/dry/pink. 18:52 Reassessment: Pt sleeping. . aa5 19:46 General: Appears in no apparent distress. comfortable, Behavior is calm, cooperative. al5 Pain: Complains of pain in chest Pain currently is 5 out of 10 on a pain scale. Neuro: Level of Consciousness is awake, alert, obeys commands, Oriented to person, place, time, situation. Cardiovascular: Capillary refill < 3 seconds Patient's skin is warm and dry. Rhythm is sinus rhythm. Respiratory: Airway is patent Respiratory effort is even, unlabored, Respiratory pattern is regular, symmetrical. GI: No signs and/or symptoms were reported involving the gastrointestinal system. : No signs and/or symptoms were reported regarding the genitourinary system. EENT: No signs and/or symptoms were reported regarding the EENT system. Derm: Skin is intact, is healthy with good turgor, Skin is pink, warm \T\ dry. normal. Musculoskeletal: L sided paralysis from previous cva. Vital Signs: 16:37 BP 79 / 63; Pulse 95; Resp 21; Temp 98.5(TE); Pulse Ox 96% on R/A; Weight 53.52 kg; hb Height 5 ft. 4 in. ; Pain 10/10; 17:10 BP 90 / 65; Pulse 92; aa5 17:30 BP 82 / 60; Pulse 90; aa5 17:45 BP 82 / 61; Pulse 90; aa5 17:50 BP 88 / 67; Pulse 88; aa5 17:54 BP 110 / 64; Pulse 87; Resp 16 S; Pulse Ox 98% on R/A; aa5 18:20 BP 94 / 60; Pulse 91; Resp 18 S; Pulse Ox 98% on R/A; aa5 18:52 BP 90 / 61; Pulse 87; Resp 16 S; Pulse Ox 98% on R/A; aa5 20:05 BP 96 / 67; Pulse 81; Resp 17 S; Temp 98.1(O); Pulse Ox 100% on R/A; lg3 16:37 Body Mass Index 20.25 (53.52 kg, 162.56 cm) hb 16:37 Pain Scale: Adult hb ED Course: 16:37 Patient arrived in ED. hb 16:37 Kishor Hoyos DO is Attending Physician. ms3 16:39 Triage completed. hb 16:40 Arm band placed on. hb 16:54 Rosemarie Lang, RN is Primary Nurse. aa5 17:10 Patient has correct armband on for positive identification. Bed in low position. Call aa5 light in reach. Side rails up X2. Client placed on continuous cardiac and pulse oximetry monitoring. NIBP monitoring applied. satellite project site monitor on. Pulse ox on. NIBP on. 17:14 EKG done, by ED staff, reviewed by Kishor Hoyos DO. em1 17:19 XRAY Chest (1 view) In Process Unspecified. EDMS 17:20 Missed attempt(s): 20 gauge in right wrist. Bleeding controlled, band aid applied, aa5 catheter tip intact. 17:27 Initial lab(s) drawn, by dc, sent to lab. Inserted saline lock: 22 gauge in right hand, aa5 using aseptic technique. Blood collected. Flushed with 10 mL NS. 17:38 Attending Physician role handed off by Kishor Hoyos DO sp3 17:38 Hoa Eddy MD is Attending Physician. sp3 19:00 Report given to YANETH Guadalupe. aa5 19:00 No provider procedures requiring assistance completed. aa5 20:07 Provided Education on: discharge follow up with primary provider. al5 20:07 IV discontinued, intact, bleeding controlled, No redness/swelling at site. Pressure al5 dressing applied. Patient maintains SpO2 saturation greater than 95% on room air. Administered Medications: 17:54 Drug: NS 0.9% IV 1000 ml IV at 1000 ml once; to be given as a bolus over 60 minutes aa5 Route: IV; Rate: 1000 ml; Site: right hand; 18:40 Follow up: IV Status: Completed infusion; IV Intake: 1000ml aa5 Medication: 17:54 VIS not applicable for this client. aa5 Intake: 18:40 IV: 1000ml; Total: 1000ml. aa5 Outcome: 18:17 Discharge ordered by MD. sp3 20:08 Discharged to home via wheelchair, al5 20:08 Condition: good 20:08 Discharge instructions given to patient, Instructed on discharge instructions, follow up and referral plans. Demonstrated understanding of instructions, follow-up care, 20:09 Patient left the ED. al5 Signatures: Dispatcher [employer] EDMS Reyes Khan em1 Rosemarie Lang, RN RN aa5 Kristin Barrera, RN Lauren Manuel, RN RN lg3 Kishor Hoyos DO DO ms3 Hoa Eddy MD MD sp3 Anayeli Otero RN RN al5 Corrections: (The following items were deleted from the chart) 18:51 18:20 Musculoskeletal: aa5 aa5 18:52 18:20 General: Appears comfortable, Behavior is calm, cooperative, aa5 aa5 18:52 18:20 Pain: Complains of pain in chest Pain does not radiate. Pain currently is 10 out aa5 of 10 on a pain scale. Quality of pain is described as sharp, Pain began 1 day ago. Is continuous, aa5 18:52 18:20 Neuro: Level of Consciousness is awake, alert, obeys commands, Oriented to aa5 person, place, time, situation, aa5 18:52 18:20 Cardiovascular: Heart tones S1 S2 present Rhythm is regular aa5 aa5 18:52 18:20 Respiratory: Airway is patent Respiratory effort is even, unlabored, Respiratory aa5 pattern is regular, symmetrical, aa5 : 18:20 GI: Abdomen is round non-distended, Bowel sounds present X 4 quads. Abd is soft aa5 and non tender X 4 quads. Reports nausea, vomiting, aa5 : 18:20 : Brief noted aa5 aa5 18:20 EENT: No signs and/or symptoms were reported regarding the EENT system. aa5 aa5 18:20 Derm: Skin is pink, warm \T\ dry. aa5 aa5 : 18:20 Musculoskeletal: left sided paralysis, CVA deficit. aa5 aa5
--- NOTE | 2024-04-17 18:18 | EDPHYS ---
Physician Documentation [facility] Name: Geetha Khan Age: 49 yrs Sex: Female : 1975 Arrival Date: 04/17/2024 Time: 16:35 Bed 10 Private MD: ED Physician Hoa Eddy HPI: 04/17 17:20 This 49 yrs old Female presents to ER via EMS with complaints of Chest Pain. ms3 17:20 49-year-old female with past medical history of CVA, COPD, hypertension, myocardial ms3 ischemia presents to the emergency department via [facility] for chest pain that began prior to arrival. EMS notes patient's blood pressure to be low en route. Patient denies any alleviating or inciting factors.. 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 - Infectious Disease History:: Denies. - Social history:: Smoking status: Patient denies any tobacco usage or history of. ROS: 17:20 Constitutional: Negative for fever, and chills. ms3 17:20 Respiratory: Negative for shortness of breath, cough, wheezing, and pleuritic chest pain, Abdomen/GI: Negative for abdominal pain, nausea, vomiting, diarrhea, and constipation, MS/Extremity: Negative for injury and deformity, Skin: Negative for injury, rash, and discoloration, 17:20 Cardiovascular: Positive for chest pain, Exam: 17:20 Constitutional: This is a well developed, well nourished patient who is awake, alert, ms3 and in no acute distress. Cardiovascular: Regular rate and rhythm with a normal S1 and S2. No gallops, murmurs, or rubs. Normal PMI, no JVD. No pulse deficits. Respiratory: Lungs have equal breath sounds bilaterally, clear to auscultation and percussion. No rales, rhonchi or wheezes noted. No increased work of breathing, no retractions or nasal flaring. Abdomen/GI: Soft, non-tender, with normal bowel sounds. No distension or tympany. No guarding or rebound. No evidence of tenderness throughout. 17:20 ECG was reviewed by the Attending Physician. Vital Signs: 16:37 BP 79 / 63; Pulse 95; Resp 21; Temp 98.5(TE); Pulse Ox 96% on R/A; Weight 53.52 kg; hb Height 5 ft. 4 in. ; Pain 10/10; 17:10 BP 90 / 65; Pulse 92; aa5 17:30 BP 82 / 60; Pulse 90; aa5 17:45 BP 82 / 61; Pulse 90; aa5 17:50 BP 88 / 67; Pulse 88; aa5 17:54 BP 110 / 64; Pulse 87; Resp 16 S; Pulse Ox 98% on R/A; aa5 18:20 BP 94 / 60; Pulse 91; Resp 18 S; Pulse Ox 98% on R/A; aa5 18:52 BP 90 / 61; Pulse 87; Resp 16 S; Pulse Ox 98% on R/A; aa5 20:05 BP 96 / 67; Pulse 81; Resp 17 S; Temp 98.1(O); Pulse Ox 100% on R/A; lg3 16:37 Body Mass Index 20.25 (53.52 kg, 162.56 cm) hb 16:37 Pain Scale: Adult hb MDM: 17:22 Differential diagnosis: abnormal EKG, acute myocardial infarction, anxiety, coronary ms3 artery disease chest wall pain. 17:39 Medical Screening Exam initiated sp3 18:16 Data reviewed: vital signs, nurses notes, old medical records, lab test result(s), EKG, sp3 radiologic studies. ED course: Patient signed out to me by Dr. Hoyos. Patient is she had hypertension and chest pain. Patient very well-known to the ED coding her past medical history. Patient received some light fluids and her blood pressure is now 110/64. Full workup negative including troponin. BNP slightly elevated but she has had this in the past. Chest x-ray is clear and demonstrates no pulmonary edema. Patient is resting comfortably no acute distress. EKG unchanged from prior. We will safely discharge patient home at this time.. 18:17 Transition of care: After a detail discussion of the patient's case, care is ms3 transferred to Hoa Eddy MD. 04/17 17:08 Order name: Basic Metabolic Panel; Complete Time: 18:15 ms3 04/17 17:08 Order name: CBC with Diff; Complete Time: 18:15 ms3 04/17 17:08 Order name: Magnesium; Complete Time: 18:15 ms3 04/17 17:08 Order name: NT PRO-BNP; Complete Time: 18:15 ms3 04/17 17:08 Order name: PT-INR; Complete Time: 18:15 ms3 04/17 17:08 Order name: Troponin HS; Complete Time: 18:15 ms3 04/17 17:08 Order name: XRAY Chest (1 view); Complete Time: 17:40 ms3 04/17 16:38 Order name: EKG; Complete Time: 16:39 ms3 04/17 16:38 Order name: EKG - Nurse/Tech; Complete Time: 17:14 ms3 04/17 17:08 Order name: Cardiac monitoring; Complete Time: 17:30 ms3 04/17 17:08 Order name: IV Saline Lock; Complete Time: 17:49 ms3 04/17 17:08 Order name: Labs collected and sent; Complete Time: 17:49 ms3 04/17 17:08 Order name: O2 Per Protocol; Complete Time: 17:30 ms3 04/17 17:08 Order name: O2 Sat Monitoring; Complete Time: 17:30 ms3 EC:20 Rate is 95 beats/min. Rhythm is regular. QRS Orion is Normal. MN interval is normal. QRS ms3 interval is normal. Clinical impression: NSR w/ Non-specific ST/T Changes. Interpreted by me. Reviewed by me. Administered Medications: 17:54 Drug: NS 0.9% IV 1000 ml IV at 1000 ml once; to be given as a bolus over 60 minutes aa5 Route: IV; Rate: 1000 ml; Site: right hand; 18:40 Follow up: IV Status: Completed infusion; IV Intake: 1000ml aa5 Disposition Summary: 04/17/24 18:17 Discharge Ordered Notes: Location: Home sp3 Condition: Stable sp3 Diagnosis - Chest pain, unspecified sp3 Followup: sp3 - With: Private Physician - When: Upon discharge from the Emergency Department - Reason: Continuance of care Discharge Instructions: - Discharge Summary Sheet sp3 - Nonspecific Chest Pain, Adult sp3 Forms: - Medication Reconciliation Form sp3 - Antibiotic Education sp3 - Prescription Opioid Use sp3 - Patient Portal Instructions sp3 - Leadership Thank You Letter sp3 Signatures: Dispatcher [employer] EDMS Rosemarie Lang, RN RN aa5 Kristin Barrera RN RN Kishor Hoyos, DO ms3 Hoa Eddy MD MD sp3 Corrections: (The following items were deleted from the chart) 17:08 17:08 BASIC METABOLIC PANEL+C.LAB.BRZ ordered. EDMS EDMS 17: 17:08 CBC+H.LAB.BRZ ordered. EDMS EDMS 17: 17:08 MAGNESIUM+C.LAB.BRZ ordered. EDMS EDMS 17:08 17:08 PROBNP+C.LAB.BRZ ordered. EDMS EDMS 17:08 17:08 PROTIME (+INR)+COAG.LAB.BRZ ordered. EDMS EDMS 17:08 17:08 Troponin High Sensitivity+C.LAB.BRZ ordered. EDMS EDMS 17:08 17:08 Chest Single View+RAD.RAD.BRZ ordered. EDMS EDMS
[2024-04-17 20:21] VITALS: BP 96/67; TEMP 98.1; O2SAT 100
== END 2024-04-17 20:09 | disposition home or self-care (01) ==
LOC: ER 16:35
DX: R07.9 Chest pain, unspecified (principal); I10 Essential (primary) hypertension; I25.2 Old myocardial infarction; J44.9 Chronic obstructive pulmonary disease, unspecified
CPT/HCPCS: 85025; 80048; 36415; 83735; 85610; 84484; 83880; 71045; 96360; 99285; J7030; 93005

== ENCOUNTER 2024-04-18 03:49 | Emergency (ER) | payer OTHER ==
[2024-04-18] MEDS ORDERED: ACETAMINOPHEN 500 MG TAB ONE (04:12)
--- NOTE | 2024-04-18 04:30 | ER ---
Nurse's Notes [facility] Name: Geetha Khan Age: 49 yrs Sex: Female : 1975 Arrival Date: 04/18/2024 Time: 03:49 Bed 21 Private MD: Diagnosis: Dizziness and giddiness Presentation: 04/18 03:52 Chief complaint: EMS states: toned out to have her blood pressure checked. patient al5 blood pressure checked on scene and patient requested to come to the hospital. Coronavirus screen: At this time, the client does not indicate any symptoms associated with coronavirus-19. Ebola Screen: No symptoms or risks identified at this time. Initial Sepsis Screen: Does the patient meet any 2 criteria? No. Patient's initial sepsis screen is negative. Does the patient have a suspected source of infection? No. Patient's initial sepsis screen is negative. Risk Assessment: Do you want to hurt yourself or someone else? Patient reports no desire to harm self or others. Onset of symptoms was April 18, 2024. 03:52 Method Of Arrival: EMS: [facility] al5 03:52 Acuity: CORRINA 4 al5 Triage Assessment: 03:57 General: Appears in no apparent distress. Behavior is calm, cooperative. Pain: Denies al5 pain. EENT: No signs and/or symptoms were reported regarding the EENT system. Neuro: Level of Consciousness is awake, alert, obeys commands, Oriented to person, place, time, situation. Cardiovascular: Reports chest pressure. Respiratory: Airway is patent Respiratory effort is even, unlabored, Respiratory pattern is regular, symmetrical. GI: No signs and/or symptoms were reported involving the gastrointestinal system. : No signs and/or symptoms were reported regarding the genitourinary system. Derm: Skin is intact, is healthy with good turgor, Skin is pink, warm \T\ dry. normal. Musculoskeletal: L sided paralysis from previous cva. 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 N/A - Post-menopause, Not al5 Historical: - Allergies: 03:53 Aspirin; al5 03:53 CRANBERRY; al5 03:53 FISH PRODUCT DERIVATIVES; al5 03:53 GRAPEFRUIT; al5 03:53 SHELLFISH; al5 - Home Meds: 03:53 amlodipine oral [Active]; atorvastatin oral [Active]; Carbamazepine Oral [Active]; al5 clopidogrel oral [Active]; lisinopril Oral [Active]; Metoprolol Tartrate Oral [Active]; Nitrostat SL [Active]; quetiapine oral [Active]; - PMHx: 03:53 Cerebrovascular accident; Chronic obstructive lung disease; Hypertensive disorder; Left al5 sided paralysis post CVA; Myocardial infarction; Seizure; - PSHx: 03:53 None; al5 - Immunization history:: Adult Immunizations up to date. - Infectious Disease History:: Denies. - Social history:: Smoking status: Patient reports the use of cigarette tobacco products, smokes one-half pack cigarettes per day. Screenin:59 [facility] ED Fall Risk Assessment (Adult) History of falling in the last 3 months, al5 including since admission Yes- single mechanical fall (1 pt) Confusion or Disorientation Intoxicated or Sedated No (0 pts) Impaired Gait Yes (1 pt) Mobility Assist Device Used Yes (1 pt) Altered Elimination Yes (1 pt) Score/Fall Risk Level 3 or more points = High Risk Oriented to surroundings, Maintained a safe environment, Hourly rounding (assess needs \T\ fall precautionary measures) done, Used ambulatory aids as needed (educated on \T\ assisted with). Abuse screen: Denies threats or abuse. Denies injuries from another. Nutritional screening: No deficits noted. Tuberculosis screening: No symptoms or risk factors identified. Assessment: 03:59 Reassessment: see triage assessment. al5 04:34 Reassessment: Patient appears in no apparent distress at this time. No changes from lg3 previously documented assessment. Patient and/or family updated on plan of care and expected duration. Pain level reassessed. Patient is alert, oriented x 3, equal unlabored respirations, skin warm/dry/pink. Vital Signs: 03:52 BP 117 / 77; Pulse 81; Resp 16; Temp 98.3; Pulse Ox 97% on R/A; Weight 53.52 kg; Height al5 5 ft. 3 in. ; 04:35 BP 111 / 72; Pulse 76; Resp 16 S; Temp 98.2(O); Pulse Ox 97% on R/A; lg3 03:52 Body Mass Index 20.90 (53.52 kg, 160.02 cm) al5 ED Course: 03:51 Patient arrived in ED. al5 03:53 Triage completed. al5 03:59 Arm band placed on right wrist. Patient placed in view of staff members. al5 04:01 Patient has correct armband on for positive identification. Provided Education on: plan al5 of care. 04:02 No provider procedures requiring assistance completed. Patient did not have IV access al5 during this emergency room visit. 04:20 Noam Ansari MD is Attending Physician. bo1 Administered Medications: 04:12 Drug: Acetaminophen PO 1000 mg PO once Route: PO; lg3 04:34 Follow up: Response: No adverse reaction lg3 Medication: 03:59 VIS not applicable for this client. al5 Outcome: 04:29 Discharge ordered by . bo1 04:35 Discharged to home via wheelchair, with significant other, lg3 04:35 Condition: stable 04:35 Discharge instructions given to patient, surgical aide, Instructed on discharge instructions, follow up and referral plans. medication usage, Demonstrated understanding of instructions, follow-up care, medications, Prescriptions given X 1, 04:37 Patient left the ED. lg3 Signatures: Lauren Heath RN RN lg3 Noam Ansari MD MD bo1 Anayeli Otero RN RN al5
--- NOTE | 2024-04-18 04:30 | EDPHYS ---
Physician Documentation [facility] Name: Geetha Khan Age: 49 yrs Sex: Female : 1975 Arrival Date: 04/18/2024 Time: 03:49 Bed 21 Private MD: ED Physician Noam Ansari HPI: 04/18 04:21 This 49 yrs old Female presents to ER via EMS with complaints of Blood Pressure Problem.bo1 04:21 Hx of recent visit today for LBP. Pt felt dizzy and called 911. . Onset: The bo1 symptoms/episode began/occurred gradually. The patient has experienced similar episodes in the past. The patient has been recently seen at the [facility] Emergency Department, today, for similar complaints Over 200 visits to the ER. Pt states she thought that her BP was low. When checked it wasn't.. 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 LMP N/A - Post-menopause, Not al5 Historical: - Allergies: 03:53 Aspirin; al5 03:53 CRANBERRY; al5 03:53 FISH PRODUCT DERIVATIVES; al5 03:53 GRAPEFRUIT; al5 03:53 SHELLFISH; al5 - Home Meds: 03:53 amlodipine oral [Active]; atorvastatin oral [Active]; Carbamazepine Oral [Active]; al5 clopidogrel oral [Active]; lisinopril Oral [Active]; Metoprolol Tartrate Oral [Active]; Nitrostat SL [Active]; quetiapine oral [Active]; - PMHx: 03:53 Cerebrovascular accident; Chronic obstructive lung disease; Hypertensive disorder; Left al5 sided paralysis post CVA; Myocardial infarction; Seizure; - PSHx: 03:53 None; al5 - Immunization history:: Adult Immunizations up to date. - Infectious Disease History:: Denies. - Social history:: Smoking status: Patient reports the use of cigarette tobacco products, smokes one-half pack cigarettes per day. ROS: 04:23 Constitutional: Negative for fever, chills, and weight loss bo1 04:23 Constitutional: Negative for chills, fever, 04:23 Cardiovascular: Negative for chest pain, palpitations, 04:23 Respiratory: Negative for cough, shortness of breath, 04:23 Abdomen/GI: Negative for abdominal pain, nausea and vomiting, 04:23 Neuro: Positive for dizziness, 04:23 All other systems are negative, Exam: 04:25 Constitutional: This is a well developed, well nourished patient who is awake, alert, bo1 and in no acute distress. 04:25 Constitutional: The patient appears in no acute distress, alert, awake, comfortable, non-toxic, 04:25 Constitutional: The patient appears in obvious distress, Odor: Tobacco 04:25 Cardiovascular: Rate: normal, Rhythm: regular, Pulses: no pulse deficits are appreciated, 04:25 ECG was reviewed by the Attending Physician. 04:25 Respiratory: the patient does not display signs of respiratory distress, Breath sounds: are clear throughout, no acute changes, Respiratory rate: Normal 04:25 Abdomen/GI: Palpation: abdomen is soft and non-tender, 04:25 Skin: no rash present. Vital Signs: 03:52 BP 117 / 77; Pulse 81; Resp 16; Temp 98.3; Pulse Ox 97% on R/A; Weight 53.52 kg; Height al5 5 ft. 3 in. ; 04:35 BP 111 / 72; Pulse 76; Resp 16 S; Temp 98.2(O); Pulse Ox 97% on R/A; lg3 03:52 Body Mass Index 20.90 (53.52 kg, 160.02 cm) al5 MDM: 04:21 Medical Screening Exam initiated bo1 04:27 Differential Diagnosis Chronic dizziness/vertigo. Data reviewed: vital signs, old bo1 medical records, EKG. ED course: Pt has 2-3 visits per day. 04/18 03:57 Order name: EKG - Nurse/Tech; Complete Time: 03:57 vc1 EC:25 Rate is 78 beats/min. Rhythm is regular. QRS [place] is Normal. CT interval is normal. QRS bo1 interval is normal. QT interval is normal. No Q waves. T waves are Normal. No ST changes noted. Clinical impression: Normal ECG and LVH. Interpreted by me. Reviewed by me. Administered Medications: 04:12 Drug: Acetaminophen PO 1000 mg PO once Route: PO; lg3 04:34 Follow up: Response: No adverse reaction lg3 Disposition Summary: 04/18/24 04:29 Discharge Ordered Notes: Location: Home bo1 Problem: chronic bo1 Symptoms: have improved bo1 Condition: Stable bo1 Diagnosis - Dizziness and giddiness bo1 Followup: bo1 - With: Private Physician - When: Upon discharge from the Emergency Department - Reason: Recheck today's complaints, Continuance of care Discharge Instructions: - Discharge Summary Sheet bo1 - Dizziness bo1 Forms: - Medication Reconciliation Form bo1 - Antibiotic Education bo1 - Prescription Opioid Use bo1 - Patient Portal Instructions bo1 - Leadership Thank You Letter bo1 Prescriptions: - Meclizine 25 mg Oral Tablet - take 1 tablet ORAL route every 8 hours As needed; 30 tablet; Refills: 0, bo1 Product Selection Permitted Signatures: Lauren Heath RN RN lg3 Syead Bruce RN RN vc1 Noam Ansari MD MD bo1 Anayeli Otero RN RN al5
[2024-04-18 05:02] VITALS: O2SAT 97
[2024-04-18 05:09] VITALS: BP 111/72; TEMP 98.2
== END 2024-04-18 04:37 | disposition home or self-care (01) ==
LOC: ER 03:49
DX: R42 Dizziness and giddiness (principal); I10 Essential (primary) hypertension; F17.210 Nicotine dependence, cigarettes, uncomplicated
CPT/HCPCS: 99284

== ENCOUNTER 2024-04-18 18:43 | Emergency (ER) | payer OTHER ==
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
[2024-04-18] MEDS ORDERED: HYDROCODONE/APAP 5/325 MG TAB ONE (20:02)
[2024-04-18] MEDS ORDERED: DIAZEPAM 5 MG TABLET ONE (20:02)
[2024-04-18] MEDS ORDERED: AZITHROMYCIN 250 MG TAB ONE (20:48)
[2024-04-18] MEDS ORDERED: AMOX/K CLAV 875 MG TAB ONE (20:48)
--- NOTE | 2024-04-18 20:59 | RAD REPORT ---
EXAMINATION: XR Ankle Left 3 View CLINICAL INDICATION: Female, 49 years old. [facility] MA[facility] Trauma / Fall Bed Name: 6 TECHNIQUE: 3 view radiographs of the left ankle were obtained. COMPARISON: 11/25/2023 FINDINGS: Gracile appearance of the ankle osseous structures. No bone or joint abnormality seen. No s uspicious osseous lesion. No significant soft tissue abnormalities. IMPRESSION: No acute or significant abnormalities.
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
[2024-04-18 21:40] VITALS: TEMP 98.4; O2SAT 100
[2024-04-18 21:47] VITALS: BP 126/84
== END 2024-04-18 21:15 | disposition home or self-care (01) ==
LOC: ER 18:43
DX: J18.8 Other pneumonia, unspecified organism (principal); M25.532 Pain in left wrist; M25.572 Pain in left ankle and joints of left foot
CPT/HCPCS: 71045; 99284

== ENCOUNTER 2024-04-19 20:40 | Emergency (ER) | payer OTHER ==
[2024-04-19] MEDS ORDERED: AZITHROMYCIN 250 MG TAB ONE (21:05)
[2024-04-19] MEDS ORDERED: DIAZEPAM 5 MG TABLET ONE (21:05)
[2024-04-19] MEDS ORDERED: AMOX/K CLAV 875 MG TAB ONE (21:05)
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
[2024-04-19 21:41] VITALS: BP 126/88; TEMP 98; O2SAT 100
== END 2024-04-19 21:32 | disposition home or self-care (01) ==
LOC: ER 20:40
DX: F41.1 Generalized anxiety disorder (principal); J18.8 Other pneumonia, unspecified organism
CPT/HCPCS: 99284

== ENCOUNTER 2024-04-20 11:11 | Emergency (ER) | payer OTHER ==
--- NOTE | 2024-04-20 12:14 | RAD REPORT ---
Procedure: Chest Single View HISTORY: Chest pain COMPARISON: April 18, 2024 FINDINGS: Old rib fractures are seen. Mild right basilar opacity unchanged. The lungs appear clear of acute infiltrate. No significant pleural effusion noted. The heart is normal size. IMPRESSION: Mild right basilar opacity unchanged could represent confluence of ribs and vessels, infiltrate or pu lmonary nodule.
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
[2024-04-20 14:33] VITALS: BP 122/86; TEMP 97.1; O2SAT 100
== END 2024-04-20 13:47 | disposition left against medical advice (07) ==
LOC: ER 11:11
DX: R07.89 Other chest pain (principal); I10 Essential (primary) hypertension; J44.9 Chronic obstructive pulmonary disease, unspecified; Z86.73 Personal history of transient ischemic attack (TIA), and cerebral infarction without residual deficits
CPT/HCPCS: 71045; 99283

== ENCOUNTER 2024-04-21 20:35 | Emergency (ER) | payer OTHER ==
[2024-04-21] MEDS ORDERED: KETOROLAC 10 MG TAB ONE (21:00)
[2024-04-21] MEDS ORDERED: METOCLOPRAMIDE 5 MG TAB ONE (21:01)
[2024-04-21] MEDS ORDERED: DIAZEPAM 5 MG TABLET ONE (21:01)
--- NOTE | 2024-04-21 21:36 | EDPHYS ---
Physician Documentation [facility] Name: Geetha Khan Age: 49 yrs Sex: Female : 1975 Arrival Date: 04/21/2024 Time: 20:35 Bed IW1 Private MD: ED Physician Uriel Cannon HPI: 04/21 20:36 This 49 yrs old Female presents to ER via Unassigned with complaints of Chest sp4 Pain. 04/22 02:51 49-year-old female with history of prior left-sided hemiparesis presents with acute sp4 onset of chest pain and anxiety. Patient presents with EMS.. BEHAVIORAL THERAPIST: 04/21 22:06 LMP N/A - Post-menopause, Not me1 Historical: - Allergies: 20:39 Aspirin; me1 20:39 CRANBERRY; me1 20:39 FISH PRODUCT DERIVATIVES; me1 20:39 GRAPEFRUIT; me1 20:39 mushroom; me1 20:39 SHELLFISH; me1 - PMHx: 20:39 Cerebrovascular accident; Chronic obstructive lung disease; Hypertensive disorder; Left me1 sided paralysis post CVA; Myocardial infarction; Seizure; - PSHx: 20:39 None; me1 - Immunization history:: Adult Immunizations up to date. - Infectious Disease History:: Denies. - Social history:: Smoking status: Patient reports the use of cigarette tobacco products, denies chronic smoking, but will smoke occasionally. ROS: 04/22 02:51 Constitutional: Negative for fever, chills, and weight loss, positive for chest pain sp4 positive for anxiety Exam: 02:47 Constitutional: This is a well developed, well nourished patient who is awake, alert, sp4 and in no acute distress. Chronic left-sided hemiparesis from prior CVA. Head/Face: Normocephalic, atraumatic. Eyes: Pupils equal round and reactive to light, extra-ocular motions intact. Lids and lashes normal. Conjunctiva and sclera are not injected. Cornea within normal limits. Periorbital areas with no swelling, redness, or edema. ENT: Nares patent. No nasal discharge, no septal abnormalities noted. Tympanic membranes are normal and external auditory canals are clear. Oropharynx with no redness, swelling, or masses, exudates, or evidence of obstruction, uvula midline. Mucous membranes moist. Neck: Trachea midline, no thyromegaly or masses palpated, and no cervical lymphadenopathy. Supple, full range of motion without nuchal rigidity, or vertebral point tenderness. Chest/axilla: Normal chest wall appearance and motion. Nontender with no deformity. No lesions are appreciated. Cardiovascular: Regular rate and rhythm with a normal S1 and S2. No gallops, murmurs, or rubs. Normal PMI, no JVD. No pulse deficits. Respiratory: Lungs have equal breath sounds bilaterally, clear to auscultation and percussion. No rales, rhonchi or wheezes noted. No increased work of breathing, no retractions or nasal flaring. Abdomen/GI: Soft, with normal bowel sounds. No distension or tympany. No guarding or rebound. No evidence of tenderness throughout. Back: No spinal tenderness. No costovertebral tenderness. Skin: Warm, dry with normal turgor. Normal color with no rashes, no lesions, and no evidence of cellulitis. MS/ Extremity: Pulses equal, no cyanosis. Neurovascular intact. Chronic left-sided hemiparesis from prior CVA Neuro: Awake and alert, GCS 15, oriented to person, place, time, and situation. Chronic left-sided hemiparesis from prior CVA 02:47 ECG was reviewed by the Attending Physician. Sinus rhythm rate 77, EKG time 2104 left ventricular hypertrophy unchanged since prior EKG Vital Signs: 04/21 20:41 BP 145 / 92; Pulse 86; Resp 16; Temp 98.2; Pulse Ox 100% ; Weight 56.7 kg; Height 5 ft. me1 2 in. ; Pain 10/10; 20:41 Body Mass Index 22.86 (56.70 kg, 157.48 cm) me1 20:41 Pain Scale: Adult me1 [place] Coma Score: 21:04 Eye Response: spontaneous(4). Motor Response: obeys commands(6). Verbal Response: sp4 oriented(5). Total: 15. MDM: 20:37 Medical Screening Exam initiated sp4 21:04 Differential diagnosis: anxiety, gastritis, gastroesophageal reflux disease (GERD). sp4 Data reviewed: vital signs, nurses notes, EMS record, old medical records, EKG. ED course: Patient is well-known to me from prior visits. Her EKG is unchanged, otherwise exam unchanged since prior. Patient is stable for discharge home without additional workup.. 04/21 20:38 Order name: EKG; Complete Time: 20:38 sp4 EC: Rate is 77 beats/min. Rhythm is regular, Normal Sinus Rhythm. QRS [place] is Normal. ID sp4 interval is normal. QRS interval is normal. QT interval is normal. No ST changes noted. Clinical impression: No evidence of ischemia. Interpreted by me. Reviewed by me. Administered Medications: 21: Drug: Diazepam PO 5 mg PO once Route: PO; me1 22:06 Follow up: Response: No adverse reaction; Anxiety decreased me1 21:09 Drug: Ketorolac PO 10 mg PO once Route: PO; me1 22:06 Follow up: Response: No adverse reaction; Pain is decreased me1 21:09 Drug: MetoCLOPramide PO 10 mg PO once Route: PO; me1 22:06 Follow up: Response: No adverse reaction; Nausea is decreased me1 Disposition Summary: 04/21/24 21:35 Discharge Ordered Notes: Location: Home sp4 Problem: new sp4 Symptoms: have improved sp4 Condition: Stable sp4 Diagnosis - Chest pain, unspecified sp4 - Anxiety disorder, unspecified sp4 Followup: sp4 - With: Private Physician - When: 7 - 10 days - Reason: Recheck today's complaints Discharge Instructions: - Discharge Summary Sheet sp4 - Nonspecific Chest Pain, Adult sp4 Signatures: Uriel Cannon MD MD sp4 Nohemy Clark, RN RN me1
--- NOTE | 2024-04-21 21:36 | ER ---
Nurse's Notes [facility] Name: Geetha Khan Age: 49 yrs Sex: Female : 1975 Arrival Date: 04/21/2024 Time: 20:35 Bed IW1 Private MD: Diagnosis: Chest pain, unspecified;Anxiety disorder, unspecified Presentation: 04/21 20:38 Chief complaint: EMS states: toned out for chest pain and anxiety. cp 12/25. sd1 Coronavirus screen: Vaccine status: Patient reports being unvaccinated. Ebola Screen: No symptoms or risks identified at this time. Initial Sepsis Screen:. Risk Assessment: Do you want to hurt yourself or someone else? Patient reports no desire to harm self or others. Onset of symptoms is unknown. 20:38 Method Of Arrival: EMS: [facility] 20:38 Acuity: CORRINA 4 [facility] 20:41 Initial Sepsis Screen: Does the patient meet any 2 criteria? No. Patient's initial [facility] sepsis screen is negative. Does the patient have a suspected source of infection? No. Patient's initial sepsis screen is negative. Triage Assessment: 20:39 General: Appears in no apparent distress. unkempt, well developed, Behavior is me1 cooperative, appropriate for age, anxious. Pain: Complains of pain in chest Pain does not radiate. Pain currently is 10 out of 10 on a pain scale. Quality of pain is described as pressure, Pain began suddenly, Is continuous. EENT: No signs and/or symptoms were reported regarding the EENT system. Neuro: Level of Consciousness is awake, alert, obeys commands, Oriented to person, place, time, situation, Appropriate for age. Cardiovascular: Reports chest pain, Patient's skin is warm and dry. Respiratory: Airway is patent Respiratory effort is even, unlabored, Respiratory pattern is regular, symmetrical. GI: No signs and/or symptoms were reported involving the gastrointestinal system. : No signs and/or symptoms were reported regarding the genitourinary system. Derm: Skin is intact, is healthy with good turgor, Skin is pink, warm \T\ dry. Musculoskeletal: Range of motion: limited in left shoulder, left elbow, left wrist, left hip, left knee and left ankle. CNC MAINTENANCE TECHNICIAN: 22:06 LMP N/A - Post-menopause, Not me1 Historical: - Allergies: 20:39 Aspirin; me1 20:39 CRANBERRY; me1 20:39 FISH PRODUCT DERIVATIVES; me1 20:39 GRAPEFRUIT; me1 20:39 mushroom; me1 20:39 SHELLFISH; me1 - PMHx: 20:39 Cerebrovascular accident; Chronic obstructive lung disease; Hypertensive disorder; Left me1 sided paralysis post CVA; Myocardial infarction; Seizure; - PSHx: 20:39 None; me1 - Immunization history:: Adult Immunizations up to date. - Infectious Disease History:: Denies. - Social history:: Smoking status: Patient reports the use of cigarette tobacco products, denies chronic smoking, but will smoke occasionally. Screenin:38 [facility] ED Fall Risk Assessment (Adult) History of falling in the last 3 months, me1 including since admission No falls in past 3 months (0 pts) Confusion or Disorientation No (0 pts) Intoxicated or Sedated No (0 pts) Impaired Gait Yes (1 pt) Mobility Assist Device Used Yes (1 pt) Altered Elimination Yes (1 pt) Score/Fall Risk Level 0 - 2 = Low Risk Maintained a safe environment, Provided non-skid footwear, Hourly rounding (assess needs \T\ fall precautionary measures) done. Abuse screen: Denies threats or abuse. Nutritional screening: No deficits noted. Tuberculosis screening: No symptoms or risk factors identified. Assessment: 20:38 Reassessment: See triage assessment. me1 22:07 General: Patient refused vitals at discharge.. me1 Vital Signs: 20:41 BP 145 / 92; Pulse 86; Resp 16; Temp 98.2; Pulse Ox 100% ; Weight 56.7 kg; Height 5 ft. me1 2 in. ; Pain 10/10; 20:41 Body Mass Index 22.86 (56.70 kg, 157.48 cm) me1 20:41 Pain Scale: Adult me1 [place] Coma Score: 21:04 Eye Response: spontaneous(4). Motor Response: obeys commands(6). Verbal Response: sp4 oriented(5). Total: 15. ED Course: 20:36 Patient arrived in ED. jj6 20:36 Uriel Cannon MD is Attending Physician. sp4 20:38 Patient has correct armband on for positive identification. Bed in low position. Call me1 light in reach. Side rails up X2. Provided Education on: POC. Verbalized understanding.. 20:38 No provider procedures requiring assistance completed. Patient did not have IV access me1 during this emergency room visit. Patient maintains SpO2 saturation greater than 95% on room air. 20:39 Triage completed. me1 20:39 Arm band placed on Patient placed in waiting room. me1 21:09 Nohemy Clark, RN is Primary Nurse. me1 21:09 EKG done, by ED staff, reviewed by Uriel Cannon MD. me1 Administered Medications: 21:09 Drug: Diazepam PO 5 mg PO once Route: PO; me1 22:06 Follow up: Response: No adverse reaction; Anxiety decreased me1 21:09 Drug: Ketorolac PO 10 mg PO once Route: PO; me1 22:06 Follow up: Response: No adverse reaction; Pain is decreased me1 21:09 Drug: MetoCLOPramide PO 10 mg PO once Route: PO; me1 22:06 Follow up: Response: No adverse reaction; Nausea is decreased me1 Medication: 20:38 VIS not applicable for this client. me1 Outcome: 21:35 Discharge ordered by . sp4 22:07 Discharged to home via wheelchair, with significant other, me1 22:07 Condition: stable 22:07 Discharge instructions given to patient, Instructed on discharge instructions, follow up and referral plans. Demonstrated understanding of instructions, follow-up care, 22:07 Patient left the ED. me1 Signatures: Bia Garcia jj6 Uriel Cannon MD MD sp4 Nohemy Clark, RN RN me1
[2024-04-21 22:12] VITALS: BP 145/92; TEMP 98.2; O2SAT 100
--- NOTE | 2024-04-22 11:29 | EKG ---
Test Date: 2024-04-21 Test Time: 21:04:59 Latex Dipper: MEASUREMENT RESULTS: Intervals: Rate: 77 [place]: 164 QRSD: 80 QT: 386 QTc: 436 [place]: P: 53 [place]: 164 QRS: 0 T: 139 INTERPRETIVE STATEMENTS: Normal sinus rhythm Possible Left atrial enlargement Left ventricular hypertrophy with repolarization abnormality Abnormal ECG Compared to ECG 04/19/2024 20:46:41 No significant changes Electronically Signed On 04-22-24 11:27:36 TECHNICAL BUSINESS SYSTEMS ANALYST by Alan Garay
== END 2024-04-21 22:07 | disposition home or self-care (01) ==
LOC: ER 20:35
DX: F41.9 Anxiety disorder, unspecified (principal); F17.210 Nicotine dependence, cigarettes, uncomplicated
CPT/HCPCS: 93005

== ENCOUNTER 2024-04-22 19:59 | Emergency (ER) | payer OTHER ==
--- NOTE | 2024-04-22 22:17 | RAD REPORT ---
EXAMINATION: ONE VIEW CHEST XR CLINICAL INDICATION: Female, 49 years old.,CHEST PAIN TECHNIQUE: Frontal chest projection is submitted. Examination is limited by patient positioning and t echnique. COMPARISON: 04/20/2024 FINDINGS: The lungs are well inflated and clear. No pneumothorax or sizable effusion. The heart is normal in s ize. Mediastinal contours are unremarkable. IMPRESSION: No acute intrathoracic abnormalities.
--- NOTE | 2024-04-22 22:57 | EDPHYS ---
Physician Documentation [facility] Name: Geetha Khan Age: 49 yrs Sex: Female : 1975 Arrival Date: 04/22/2024 Time: 19:59 Bed DX4 Private MD: ED Physician Gene Medrano HPI: 04/22 21:29 This 49 yrs old Female presents to ER via EMS with complaints of Chest Pain. rn 21:29 The patient or guardian reports chest pain that is located primarily in the substernal rn area. Onset: 1 hour(s) ago. The pain does not radiate. Associated signs and symptoms: Pertinent positives: dizziness, Pertinent negatives: abdominal pain, near syncope, palpitations, shortness of breath, syncope, vomiting. The chest pain is described as aching. Modifying factors: The symptoms are alleviated by nothing. the symptoms are aggravated by nothing. Severity of pain: At its worst the pain was mild in the emergency department the pain is unchanged. The patient has experienced similar episodes in the past. Patient reports chest pain, substernal, nonradiating, associated with dizziness. Denies any fever or chills. No new trauma. No cough or shortness of breath. No abdominal pain.. Historical: - Allergies: 20:18 Aspirin; cm10 20:18 CRANBERRY; cm10 20:18 FISH PRODUCT DERIVATIVES; cm10 20:18 GRAPEFRUIT; cm10 20:18 mushroom; cm10 20:18 SHELLFISH; cm10 - Home Meds: 20:18 amlodipine oral [Active]; atorvastatin oral [Active]; Carbamazepine Oral [Active]; cm10 quetiapine oral [Active]; Nitrostat SL [Active]; Metoprolol Tartrate Oral [Active]; clopidogrel oral [Active]; lisinopril Oral [Active]; - PMHx: 20:18 Cerebrovascular accident; Chronic obstructive lung disease; Hypertensive disorder; Left cm10 sided paralysis post CVA; Myocardial infarction; Seizure; - Immunization history:: Adult Immunizations up to date. - Infectious Disease History:: Denies. - Social history:: Smoking status: Patient reports the use of cigarette tobacco products, smokes one-half pack cigarettes per day. - Family history:: not pertinent. - Hospitalizations: : No recent hospitalization is reported. ROS: 21:29 Constitutional: Negative for fever, chills, and weight loss, Cardiovascular: Positive rn for chest pain Respiratory: Negative for shortness of breath, cough, wheezing, and pleuritic chest pain, Abdomen/GI: Negative for abdominal pain, nausea, vomiting, diarrhea, and constipation, MS/Extremity: Negative for injury and deformity, Skin: Negative for injury, rash, and discoloration, Neuro: Negative for headache, weakness, numbness, tingling, and seizure, Exam: 21:29 Constitutional: This is a well developed, well nourished patient who is awake, alert, rn and in no acute distress. This is the best appearance I have seen her in all of her visits Head/Face: Normocephalic, atraumatic. Cardiovascular: Regular rate and rhythm. No pulse deficits. Respiratory: OfNo increased work of breathing, no retractions or nasal flaring. Abdomen/GI: Soft, non-tender MS/ Extremity: Pulses equal, no cyanosis. Neuro: Awake and alert, GCS 15 22:46 ECG was reviewed by the Attending Physician. rn Vital Signs: 21:06 BP 120 / 77; Pulse 87; Resp 16; Temp 96.6; Pulse Ox 100% on R/A; Weight 74.84 kg; cm10 Height 5 ft. 2 in. ; Pain 10/10; 21:06 Body Mass Index 30.18 (74.84 kg, 157.48 cm) cm10 21:06 Pain Scale: Adult cm10 MDM: 20:01 Medical Screening Exam initiated rn 22:55 Differential diagnosis: acute myocardial infarction, acute pericarditis, anxiety, chest rn wall pain, esophagitis, gastritis, gastroesophageal reflux disease (GERD), pneumonia, pneumothorax, Anxiety, chronic pain. Data reviewed: vital signs, nurses notes, EKG. Refusal of service: The patient/guardian displays adequate decision making capability and despite a detailed discussion of alternatives, benefits, risks, and consequences refuses: all lab tests. ED course: Patient decided to leave before labs obtained. Chest x-ray images negative for pneumonia or pneumothorax per my interpretation. Patient states her is here to pick her up is feeling better and needs to go home. Patient understands risk of leaving prior to lab results.. 04/22 21:09 Order name: XRAY Chest (1 view); Complete Time: 22:28 rn 04/22 21:09 Order name: EKG; Complete Time: 21:10 rn 04/22 21:09 Order name: Cardiac monitoring rn 04/22 21: Order name: EKG - Nurse/Tech; Complete Time: 23:41 rn 04/22 21: Order name: IV Saline Lock rn 04/22 21: Order name: Labs collected and sent rn 04/22 21: Order name: O2 Per Protocol rn 04/22 21:09 Order name: O2 Sat Monitoring rn EC:46 Rate is 90 beats/min. Rhythm is regular. QRS [place] is Normal. [place] interval is normal. QRS rn interval is normal. QT interval is normal. No Q waves. T waves are Inverted in leads I, aVL. No ST changes noted. Clinical impression: NSR w/ Non-specific ST/T Changes and No change from prior ECG. Interpreted by me. Reviewed by me. Administered Medications: No medications were administered Disposition Summary: 04/22/24 22:57 Discharge Ordered Notes: Location: Home rn Problem: new rn Symptoms: have improved rn Condition: Stable rn Diagnosis - Chest pain, unspecified rn Followup: rn - With: Private Physician - When: As needed - Reason: Recheck today's complaints, Re-evaluation by your physician Discharge Instructions: - Discharge Summary Sheet rn - Nonspecific Chest Pain, Adult rn Forms: - Medication Reconciliation Form rn - Antibiotic manager furniture - Prescription Opioid Use rn - Patient Portal Instructions rn - Leadership Thank You Letter rn Signatures: Dispatcher [employer] Gene Simon MD MD rn Martinez, Clarissa RN RN 10
--- NOTE | 2024-04-22 22:57 | ER ---
Nurse's Notes [facility] Name: Geetha Khan Age: 49 yrs Sex: Female : 1975 Arrival Date: 04/22/2024 Time: 19:59 Bed DX4 Private MD: Diagnosis: Chest pain, unspecified Presentation: 04/22 20:18 Coronavirus screen: Client denies travel out of the [place] in the last 14 days. Ebola cm10 Screen: Patient denies travel to an Ebola-affected area in the 21 days before illness onset. Initial Sepsis Screen: Does the patient meet any 2 criteria? No. Patient's initial sepsis screen is negative. Does the patient have a suspected source of infection? No. Patient's initial sepsis screen is negative. Risk Assessment: Do you want to hurt yourself or someone else? Patient reports no desire to harm self or others. 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 cm10 Pt states that the pain is similar to the pain she always has. Onset of symptoms was April 22, 2024. 21:06 Acuity: CORRINA 2 cm10 Triage Assessment: 21:09 General: Appears in no apparent distress. comfortable, Behavior is calm, cooperative. cm10 Neuro: No deficits noted. Level of Consciousness is awake, alert, obeys commands, Oriented to person, place, time, situation, Appropriate for age. Respiratory: No deficits noted. Airway is patent Respiratory effort is even, unlabored, Respiratory pattern is regular, symmetrical. Historical: - Allergies: 20:18 Aspirin; cm10 20:18 CRANBERRY; cm10 20:18 FISH PRODUCT DERIVATIVES; cm10 20:18 GRAPEFRUIT; cm10 20:18 mushroom; cm10 20:18 SHELLFISH; cm10 - Home Meds: 20:18 amlodipine oral [Active]; atorvastatin oral [Active]; Carbamazepine Oral [Active]; cm10 quetiapine oral [Active]; Nitrostat SL [Active]; Metoprolol Tartrate Oral [Active]; clopidogrel oral [Active]; lisinopril Oral [Active]; - PMHx: 20:18 Cerebrovascular accident; Chronic obstructive lung disease; Hypertensive disorder; Left cm10 sided paralysis post CVA; Myocardial infarction; Seizure; - Immunization history:: Adult Immunizations up to date. - Infectious Disease History:: Denies. - Social history:: Smoking status: Patient reports the use of cigarette tobacco products, smokes one-half pack cigarettes per day. - Family history:: not pertinent. - Hospitalizations: : No recent hospitalization is reported. Screenin:47 [facility] ED Fall Risk Assessment (Adult) History of falling in the last 3 months, lg3 including since admission Yes- single mechanical fall (1 pt) Confusion or Disorientation No (0 pts) Intoxicated or Sedated No (0 pts) Impaired Gait Yes (1 pt) Mobility Assist Device Used Yes (1 pt) Altered Elimination Yes (1 pt) Score/Fall Risk Level 3 or more points = High Risk Oriented to surroundings, Maintained a safe environment, Educated pt \T\ family on fall prevention, incl call for assistance when getting out of bed, Assessed \T\ reinforced patient's understanding of fall precautions. 23:47 Abuse screen: Denies threats or abuse. Denies injuries from another. Nutritional lg3 screening: No deficits noted. Tuberculosis screening: No symptoms or risk factors identified. Assessment: 21:20 General: pt called from [facility]. no response. provider notified. lg3 21:55 General: pt called from [facility]. no response. provider notified. lg3 22:17 General: pt called from [facility]. no response. provider notified. lg3 Vital Signs: 21:06 BP 120 / 77; Pulse 87; Resp 16; Temp 96.6; Pulse Ox 100% on R/A; Weight 74.84 kg; cm10 Height 5 ft. 2 in. ; Pain 10/10; 21:06 Body Mass Index 30.18 (74.84 kg, 157.48 cm) cm10 21:06 Pain Scale: Adult cm10 ED Course: 20:00 Patient arrived in ED. jj6 20:00 Gene Medrano MD is Attending Physician. rn 21:08 Triage completed. cm10 21:09 Arm band placed on right wrist. Patient placed in waiting room. cm10 21:41 XRAY Chest (1 view) In Process Unspecified. EDMS 23:47 Patient did not have IV access during this emergency room visit. lg3 23:47 No provider procedures requiring assistance completed. lg3 Administered Medications: No medications were administered Medication: 23:47 VIS not applicable for this client. lg3 Outcome: 22:57 Discharge ordered by . rn 23:45 Discharged to Unknown registration reports seeing pt leave by POV with spouse lg3 23:45 Condition: stable 23:48 Patient left the ED. lg3 Signatures: Dispatcher [employer] Gene Simon MD MD rn Able, Lacie, RN RN lg3 Bia Garcia Clarissa RN RN cm10
[2024-04-23 00:14] VITALS: BP 120/77; TEMP 96.6; O2SAT 100
--- NOTE | 2024-04-23 11:26 | EKG ---
Test Date: 2024-04-22 Test Time: 21:15:58 Immigration Associate: JEANNA MEASUREMENT RESULTS: Intervals: Rate: 90 AK: 158 QRSD: 84 QT: 372 QTc: 455 [place]: P: 46 AK: 158 QRS: -7 T: 138 INTERPRETIVE STATEMENTS: Normal sinus rhythm Possible Left atrial enlargement Left ventricular hypertrophy with repolarization abnormality Abnormal ECG Compared to ECG 04/21/2024 21:04:59 No significant changes Electronically Signed On 04-23-24 11:24:26 CENTRIFUGE SEPARATOR TENDER by Alan Garay
== END 2024-04-22 23:48 | disposition home or self-care (01) ==
LOC: ER 19:59
DX: R07.9 Chest pain, unspecified (principal); I10 Essential (primary) hypertension; I25.2 Old myocardial infarction; F17.210 Nicotine dependence, cigarettes, uncomplicated
CPT/HCPCS: 71045; 85025; 93005

== ENCOUNTER 2024-04-24 17:32 | Emergency (ER) | payer OTHER ==
--- NOTE | 2024-04-24 18:46 | RAD REPORT ---
EXAMINATION: CT HEAD WITHOUT CONTRAST CT CERVICAL SPINE WITHOUT CONTRAST CLINICAL INDICATION: Head and neck injury status post fall. Head and neck pain TECHNIQUE: Axial CT images from the skull base to the vertex without intravenous contrast. Axial CT i mages through the cervical spine were obtained without intravenous contrast. Sagittal and coronal reformatted images were created from the data set. Coronal and sagittal reformatted images were creat ed from the data set. One or more of the following dose reduction techniques were used: Automated exposure control, adjustment of the mA and/or kV according to patient size, and/or iterative reconstr uction. Unless otherwise specified, incidental findings do not require dedicated imaging follow-up. [id number]. Comparison: 2023 FINDINGS: An intracranial bleed is not seen. Ventricles are normal in caliber. Old right cerebral infarction. No extra-axial fluid collection. No fluid within the sinuses/mastoids No fracture or dislocation is seen involving the cervical spine. IMPRESSION: No acute intracranial abnormality noted A cervical fracture is not seen. 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
--- NOTE | 2024-04-24 19:03 | RAD REPORT ---
Exam:Shoulder Left 2+ Views HISTORY: Left shoulder pain FINDINGS: Anterior dislocation left humeral head. No fracture is seen
[2024-04-24] MEDS ORDERED: ACETAMINOPHEN 500 MG TAB ONE (19:20)
[2024-04-24] MEDS ORDERED: TRAMADOL HCL 50 MG TAB ONE (19:20)
[2024-04-24] MEDS ORDERED: ONDANSETRON 4 MG/2 ML VIAL ONE (22:35)
[2024-04-24] MEDS ORDERED: FENTANYL CITR 100 MCG/2 ML ONE (22:36)
[2024-04-24] MEDS ORDERED: ETOMIDATE 20 MG/10 ML VIAL IV ONE (23:12)
[2024-04-24] MEDS ORDERED: MIDAZOLAM HCL 2 MG/2 ML INJ ONE (23:12)
--- NOTE | 2024-04-25 00:30 | ER ---
Nurse's Notes [facility] Name: Geetha Khan Age: 49 yrs Sex: Female : 1975 Arrival Date: 04/24/2024 Time: 17:32 Bed 13 Private MD: Diagnosis: Contusion of unspecified part of head, initial encounter;Other dislocation of left shoulder joint;Fall from bed, initial encounter Presentation: 04/24 17:46 Chief complaint: Patient states: Left shoulder pain that radiates to chest s/p falling. cm10 pt states that she feels her shoulder popping. pt reports hitting head with no LOC. PT TAKES PLAVIX DAILY. Coronavirus screen: Client denies travel out of the [place] in the last 14 days. Ebola Screen: Patient denies travel to an Ebola-affected area in the 21 days before illness onset. Initial Sepsis Screen: Does the patient meet any 2 criteria? No. Patient's initial sepsis screen is negative. Does the patient have a suspected source of infection? No. Patient's initial sepsis screen is negative. Risk Assessment: Do you want to hurt yourself or someone else? Patient reports no desire to harm self or others. Onset of symptoms was April 24, 2024. 17:46 Method Of Arrival: EMS: [facility] cm10 17:46 Acuity: CORRINA 4 cm10 Triage Assessment: 17:50 General: Appears in no apparent distress. comfortable, Behavior is calm, cooperative. cm10 Neuro: No deficits noted. Level of Consciousness is awake, alert, obeys commands, Oriented to person, place, time, situation, Appropriate for age. Respiratory: No deficits noted. Airway is patent Respiratory effort is even, unlabored, Respiratory pattern is regular, symmetrical. 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/A - Irregular menses, Not dd2 Historical: - Allergies: 04/24 17:47 Aspirin; cm10 17:47 CRANBERRY; cm10 17:47 FISH PRODUCT DERIVATIVES; cm10 17:47 GRAPEFRUIT; cm10 17:47 mushroom; cm10 17:47 SHELLFISH; cm10 - Home Meds: 17:47 amlodipine oral [Active]; clopidogrel 75 mg oral tablet 1 tab daily [Active]; cm10 quetiapine oral [Active]; Nitrostat SL [Active]; atorvastatin oral [Active]; Metoprolol Tartrate Oral [Active]; lisinopril Oral [Active]; Carbamazepine Oral [Active]; - PMHx: 17:47 Cerebrovascular accident; Chronic obstructive lung disease; Hypertensive disorder; Left cm10 sided paralysis post CVA; Myocardial infarction; Seizure; - Immunization history:: Adult Immunizations up to date. - Infectious Disease History:: Denies. - Social history:: Smoking status: Patient reports the use of cigarette tobacco products, denies chronic smoking, but will smoke occasionally. Screenin:00 [facility] ED Fall Risk Assessment (Adult) History of falling in the last 3 months, me1 including since admission Yes- single mechanical fall (1 pt) Confusion or Disorientation No (0 pts) Intoxicated or Sedated No (0 pts) Impaired Gait Yes (1 pt) Mobility Assist Device Used Yes (1 pt) Altered Elimination Yes (1 pt) Score/Fall Risk Level 0 - 2 = Low Risk Maintained a safe environment, Provided non-skid footwear, Hourly rounding (assess needs \T\ fall precautionary measures) done. Abuse screen: Denies threats or abuse. Nutritional screening: No deficits noted. Tuberculosis screening: No symptoms or risk factors identified. Assessment: 19:00 General: Appears uncomfortable, unkempt, well developed, Behavior is cooperative, me1 appropriate for age, Reports Left shoulder pain that radiates to chest s/p falling. pt states that she feels her shoulder popping. pt reports hitting head with no LOC. PT TAKES PLAVIX DAILY. Pain: Complains of pain in anterior aspect of left shoulder and chest Pain radiates to chest Pain currently is 10 out of 10 on a pain scale. Quality of pain is described as sharp, Pain began suddenly, Is continuous. Neuro: Level of Consciousness is awake, alert, obeys commands, Oriented to person, place, time, situation, Appropriate for age. Cardiovascular: Patient's skin is warm and dry. Respiratory: Airway is patent Respiratory effort is even, unlabored, Respiratory pattern is regular, symmetrical. GI: No signs and/or symptoms were reported involving the gastrointestinal system. : No signs and/or symptoms were reported regarding the genitourinary system. EENT: No signs and/or symptoms were reported regarding the EENT system. Derm: Skin is healthy with good turgor, Skin is pink, warm \T\ dry. Musculoskeletal: Range of motion: limited in left shoulder, left elbow, left wrist, left hip, left knee and left ankle Reports pain in anterior aspect of left shoulder since falling today. Injury Description: ground level fall today with left shoulder pain that radiates to chest. Vital Signs: 17:46 BP 122 / 90; Pulse 89; Resp 15; Temp 98.2; Pulse Ox 98% on R/A; Weight 74.84 kg; Height cm10 5 ft. 4 in. ; Pain 10/10; 22:53 BP 121 / 74; Pulse 78; Resp 16; Temp 97.9; Pulse Ox 98% on R/A; dd2 23:41 BP 125 / 90; Pulse 73; Resp 15; Pulse Ox 97% on R/A; dd2 04/25 00:20 BP 118 / 71; Pulse 74; Resp 16; Pulse Ox 98% on R/A; dd2 01:00 BP 112 / 78; Pulse 68; Resp 16; Temp 98.1; Pulse Ox 98% on R/A; dd2 04/24 17:46 Body Mass Index 28.32 (74.84 kg, 162.56 cm) cm10 / 17:46 Pain Scale: Adult cm10 04/24 23:41 see procedure sedation flow sheet for intra-procedure and post-procedure vs dd2 ED Course: 17:33 Patient arrived in ED. im 17:38 Michael Nguyen PA is PHCP. cp 17:38 Michael Grimm MD is Attending Physician. cp 17:47 Triage completed. cm10 17:50 Arm band placed on right wrist. Patient placed in waiting room. cm10 18:24 CT Head C Spine In Process Unspecified. EDMS 18:57 Shoulder Left (2 View) XRAY In Process Unspecified. EDMS 19:00 Patient has correct armband on for positive identification. Provided Education on: POC. me1 Verbalized understanding.. 19:00 No provider procedures requiring assistance completed. me1 20:23 Nohemy Clark, RN is Primary Nurse. me1 22:12 MAGGIE GIBSON, YANETH is Primary Nurse. dd2 22:51 Accessed peripheral vein via ultrasound, utilizing dynamic ultrasound technique Clean \T\ cm10 dry. Dressing intact. Good blood return. Flushes easily. 20f right forearm. Missed attempt(s): 20 gauge in right wrist. 22 gauge in right hand. Bleeding controlled, band aid applied, catheter tip intact. 23:41 Patient maintains SpO2 saturation greater than 95% on room air. dd2 23:52 Sling \T\ swathe to left arm. dd2 23:53 Client placed on continuous cardiac and pulse oximetry monitoring. NIBP monitoring dd2 applied. lunchroom monitor on. Door closed. Noise minimized. Warm blanket given. Pillow given. Verbal reassurance given. Consent for conscious sedation explained by staff, explained by physician, signed by patient. 23:54 Assist provider with reduction of left shoulder using manipulation, Set up for dd2 procedure. Performed by Michael LEBRON Immobilized with sling, Patient tolerated well. 04/25 00:00 XRAY Shoulder LEFT 2 view In Process Unspecified. EDMS 00:27 Sage Griffiths MD is Referral Physician. cp 01:09 IV discontinued, intact, bleeding controlled, No redness/swelling at site. Pressure dd2 dressing applied. Administered Medications: 04/24 19:27 Drug: Acetaminophen PO 1000 mg PO once Route: PO; me1 20:25 Follow up: Response: No adverse reaction; Pain is decreased me1 19:27 Drug: traMADol PO 50 mg PO once Route: PO; me1 20:25 Follow up: Response: No adverse reaction; Pain is decreased me1 23:10 Drug: fentaNYL (PF) IVP 25 mcg IVP once Route: IVP; Site: right forearm; dd2 23:25 Follow up: Response: No adverse reaction dd2 23:10 Drug: Ondansetron IVP 4 mg IVP once; over 2 minutes Route: IVP; Site: right forearm; dd2 23:25 Follow up: Response: No adverse reaction dd2 23:27 Drug: Midazolam IVP or IV 2 mg IVP once Route: IVP; Site: right forearm; dd2 23:42 Follow up: Response: No adverse reaction dd2 23:27 Drug: Midazolam IVP or IV 2 mg IVP once Route: IVP; Site: right forearm; dd2 23:42 Follow up: Response: No adverse reaction dd2 23:29 Drug: Etomidate IVP 10 mg IVP once Route: IVP; Site: right forearm; dd2 23:44 Follow up: Response: No adverse reaction dd2 Medication: 19:00 VIS not applicable for this client. me1 Outcome: 04/25 00:29 Discharge ordered by . cp 01:10 Discharged to home via wheelchair, with significant other, dd2 01:10 Condition: stable 01:10 Discharge instructions given to patient, significant other, Instructed on discharge instructions, follow up and referral plans. medication usage, Demonstrated understanding of instructions, follow-up care, medications, 01:13 Patient left the ED. dd2 Signatures: Dispatcher [employer] EDMS Michael Nguyen PA PA cp Mendoza, Itzel im Martinez, Clarissa, RN RN cm10 Nohemy Clark RN RN me1 MAGGIE GIBSON RN RN dd2 Corrections: (The following items were deleted from the chart) 04/24 17:50 17:46 Chief complaint: Patient states: Left shoulder pain that radiates to chest s/p cm10 falling. pt states that she feels her shoulder popping. pt reports hitting head with no loc. cm10 19:30 17:46 Chief complaint: Patient states: Left shoulder pain that radiates to chest s/p me1 falling. pt states that she feels her shoulder popping. pt reports hitting head with no LOC. PT TAKES PLAVIX DAILY. cm10
--- NOTE | 2024-04-25 00:30 | EDPHYS ---
Physician Documentation [facility] Name: Geetha Khan Age: 49 yrs Sex: Female : 1975 Arrival Date: 04/24/2024 Time: 17:32 Bed 13 Private MD: ED Physician Michael Grimm HPI: 04/24 18:20 This 49 yrs old Female presents to ER via EMS with complaints of Shoulder Pain. cp 18:20 The patient or guardian complains of an injury, pain, that is acute. left shoulder. cp 18:20 Details of fall: The patient fell from a height, out of bed. Patient reports losing cp balance and falling out of bed causing her to injure left shoulder. Patient also reported struck head. No LOC. 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: 04/25 01:11 LMP N/A - Irregular menses, Not dd2 Historical: - Allergies: 04/24 17:47 Aspirin; cm10 17:47 CRANBERRY; cm10 17:47 FISH PRODUCT DERIVATIVES; cm10 17:47 GRAPEFRUIT; cm10 17:47 mushroom; cm10 17:47 SHELLFISH; cm10 - Home Meds: 17:47 amlodipine oral [Active]; clopidogrel 75 mg oral tablet 1 tab daily [Active]; cm10 quetiapine oral [Active]; Nitrostat SL [Active]; atorvastatin oral [Active]; Metoprolol Tartrate Oral [Active]; lisinopril Oral [Active]; Carbamazepine Oral [Active]; - PMHx: 17:47 Cerebrovascular accident; Chronic obstructive lung disease; Hypertensive disorder; Left cm10 sided paralysis post CVA; Myocardial infarction; Seizure; - Immunization history:: Adult Immunizations up to date. - Infectious Disease History:: Denies. - Social history:: Smoking status: Patient reports the use of cigarette tobacco products, denies chronic smoking, but will smoke occasionally. ROS: 18:25 MS/extremity: Positive for injury or acute deformity, decreased range of motion, pain, cp of the left shoulder, 18:25 Constitutional: Negative for fever, cp 18:25 Neck: Positive for tenderness, Negative for stiffness, 18:25 Cardiovascular: Negative for chest pain, palpitations, 18:25 Respiratory: Negative for cough, shortness of breath, wheezing, 18:25 Abdomen/GI: Negative for abdominal pain, vomiting, diarrhea, constipation, 18:25 Neuro: Negative for altered mental status, loss of consciousness, syncope, 18:25 All other systems are negative, Exam: 18:30 Constitutional: The patient appears in no acute distress, alert, awake, cp non-diaphoretic, non-toxic, well developed, well nourished, uncomfortable, 18:30 Head/face: Noted is tenderness, that is mild, of the left adventism, cp 18:30 Eyes: Periorbital structures: appear normal, Pupils: equal, round, and reactive to light and accomodation, Extraocular movements: intact throughout, Conjunctiva: normal, no exudate, no injection, Lids and lashes: appear normal, bilaterally, 18:30 ENT: External ear(s): are unremarkable, Nose: is normal, Mouth: Lips: moist, Oral mucosa: moist, Posterior pharynx: Airway: no evidence of obstruction, patent, 18:30 Neck: C-spine: crepitus, is not appreciated, ROM/movement: pain, is not appreciated, limited range of motion, is not appreciated, 18:30 Chest/axilla: Inspection: normal, 18:30 Cardiovascular: Rate: normal, Rhythm: regular, 18:30 Respiratory: the patient does not display signs of respiratory distress, Respirations: normal, no use of accessory muscles, no retractions, labored breathing, is not present, Breath sounds: are clear throughout, no decreased breath sounds, no stridor, no wheezing, 18:30 Abdomen/GI: Inspection: abdomen appears normal, Palpation: abdomen is soft and non-tender, in all quadrants, 18:30 Back: vertebral tenderness, is not appreciated, 18:30 Musculoskeletal/extremity: Extremities: noted in the left shoulder: decreased ROM, deformity, pain, 18:30 Neuro: Orientation: to person, place \T\ time. Mentation: is normal, Motor: no acute changes, Sensation: no acute changes, Vital Signs: 17:46 BP 122 / 90; Pulse 89; Resp 15; Temp 98.2; Pulse Ox 98% on R/A; Weight 74.84 kg; Height cm10 5 ft. 4 in. ; Pain 10/10; 22:53 BP 121 / 74; Pulse 78; Resp 16; Temp 97.9; Pulse Ox 98% on R/A; dd2 23:41 BP 125 / 90; Pulse 73; Resp 15; Pulse Ox 97% on R/A; dd2 04/25 00:20 BP 118 / 71; Pulse 74; Resp 16; Pulse Ox 98% on R/A; dd2 01:00 BP 112 / 78; Pulse 68; Resp 16; Temp 98.1; Pulse Ox 98% on R/A; dd2 04/24 17:46 Body Mass Index 28.32 (74.84 kg, 162.56 cm) cm10 04/24 17:46 Pain Scale: Adult cm10 04/24 23:41 see procedure sedation flow sheet for intra-procedure and post-procedure vs dd2 Procedures: 04/25 00:33 Reduction: of the left shoulder, using manipulation, Immobilized with shoulder cp immobilizer. Patient tolerated well. Post reduction film - reveals normal alignment. 00:33 Procedural sedation: Pre-procedure assessment: Airway assessment: able to hyperextend cp neck, able to maintain airway, can open mouth without difficulty, Monitoring during procedure: cardiac rehabilitation specialist, continuous pulse oximetry, nurse at bedside at all times, Medications employed: Etomidate, 10 mg(s), Versed, 4 mg(s), Post-procedure assessment: a reversal agent was not used. MDM: 04/24 17:52 Medical Screening Exam initiated juan diego 04/25 00:28 Data reviewed: vital signs, nurses notes, radiologic studies, CT scan, plain films, and cp as a result, I will discharge patient. 00:28 Differential diagnosis: closed head injury, contusion, fracture. I considered the cp following discharge prescriptions or medication management in the emergency department Medications were administered in the Emergency Department. See MAR. Care significantly affected by the following chronic conditions: Hypertension, Chronic Obstructive Pulmonary Disease. Counseling: I had a detailed discussion with the patient and/or guardian regarding the historical points, exam findings, and any diagnostic results supporting the discharge/admit diagnosis, radiology results, to return to the emergency department if symptoms worsen or persist or if there are any questions or concerns that arise at home. Response to treatment: the patient's symptoms have markedly improved after treatment, and as a result, I will discharge patient. 04/24 17:55 Order name: CT Head C Spine; Complete Time: 22:13 cm10 04/24 17:55 Order name: Shoulder Left (2 View) XRAY; Complete Time: 22:13 cm10 04/24 23:36 Order name: XRAY Shoulder LEFT 2 view cp 04/24 21:43 Order name: IV; Complete Time: 23:47 cp 04/24 22:07 Order name: Shoulder Immobilizer; Complete Time: 23:47 cp Administered Medications: 04/24 19:27 Drug: Acetaminophen PO 1000 mg PO once Route: PO; me1 20:25 Follow up: Response: No adverse reaction; Pain is decreased me1 19:27 Drug: traMADol PO 50 mg PO once Route: PO; me1 20:25 Follow up: Response: No adverse reaction; Pain is decreased me1 23:10 Drug: fentaNYL (PF) IVP 25 mcg IVP once Route: IVP; Site: right forearm; dd2 23:25 Follow up: Response: No adverse reaction dd2 23:10 Drug: Ondansetron IVP 4 mg IVP once; over 2 minutes Route: IVP; Site: right forearm; dd2 23:25 Follow up: Response: No adverse reaction dd2 23:27 Drug: Midazolam IVP or IV 2 mg IVP once Route: IVP; Site: right forearm; dd2 23:42 Follow up: Response: No adverse reaction dd2 23:27 Drug: Midazolam IVP or IV 2 mg IVP once Route: IVP; Site: right forearm; dd2 23:42 Follow up: Response: No adverse reaction dd2 23:29 Drug: Etomidate IVP 10 mg IVP once Route: IVP; Site: right forearm; dd2 23:44 Follow up: Response: No adverse reaction dd2 Disposition: 04/26 00:40 Chart complete. cp Disposition Summary: 04/25/24 00:29 Discharge Ordered Notes: Location: Home cp Problem: new cp Symptoms: have improved cp Condition: Stable cp Diagnosis - Contusion of unspecified part of head, initial encounter cp - Other dislocation of left shoulder joint cp - Fall from bed, initial encounter cp Followup: cp - With: Sage Griffiths MD - When: 5 - 6 days - Reason: left shoulder dislocation Discharge Instructions: - Discharge Summary Sheet cp - Shoulder Dislocation cp - Head Injury, Adult cp - Fall Prevention in the Home, Adult cp - How to Use a Sling cp Forms: - Medication Reconciliation Form cp - Antibiotic Education cp - Prescription Opioid Use cp - Patient Portal Instructions cp - Leadership Thank You Letter cp Signatures: Dispatcher [employer] EDWV Michael Grimm MD MD cha Page, Corey PA PA cp Kye De Anda MD MD rt Kelsey Khan RN RN cm10 Nohemy Clark RN RN me1 MAGGIE GIBSON RN RN dd2 Corrections: (The following items were deleted from the chart) 04/24 17:56 17:56 Head C Spine MPR Wo Con+CT.RAD.BRZ ordered. EDMS EDMS 17:56 17:56 Shoulder Left 2 View+RAD.RAD.BRZ ordered. EDWV EDMS 04/25 21:15 21:14 MS/extremity: Positive for injury or acute deformity, decreased range of motion, cp pain, of the left shoulder, cp
[2024-04-25 01:52] VITALS: O2SAT 98
[2024-04-25 01:53] VITALS: BP 112/78; TEMP 98.1
--- NOTE | 2024-04-25 04:53 | RAD REPORT ---
EXAM DESCRIPTION: Shoulder Left 2+ Views RadLex: XR SHOULDER 2 OR MORE VIEWS LEFT CLINICAL HISTORY: 49 years Female, post reduction COMPARISON: 04/24/2024 FINDINGS: 2 views of the left shoulder. Interval reduction of previously demonstrated glenohumeral joint disloc ation. Satisfactory alignment on the study. Osseous demineralization. No acute fracture identified. IMPRESSION: Satisfactory alignment status post reduction of previously demonstrated glenohumeral joint dislocatio n. Electronically signed by: Radha Rodney MD 04/25/2024 12:58 AM [facility] Due to temporary technical issues with the PACS/[employer] reporting system, reports are being edwin d by the in-house radiologist without review as a courtesy to ensure prompt reporting the interpreting radiologist is fully responsible for the content of the report. Transcribed Date/Time: 04/25/2024 4:53 AM
== END 2024-04-25 01:13 | disposition home or self-care (01) ==
LOC: ER 17:32
DX: S43.085A Other dislocation of left shoulder joint, initial encounter (principal); S00.83XA Contusion of other part of head, initial encounter; W06.XXXA Fall from bed, initial encounter
CPT/HCPCS: 70450; 72125; 73030 ×2; 96375; 96374; 99285; 23655; J2250; J3010; J2405

== ENCOUNTER 2024-04-25 18:33 | Emergency (ER) | payer OTHER ==
[2024-04-25] MEDS ORDERED: KETOROLAC 30 MG/ML INJ ONE (19:09)
--- NOTE | 2024-04-25 19:20 | RAD REPORT ---
EXAMINATION: Shoulder Left 2+ Views CLINICAL INDICATION: Female, 49 years old. PAIN COMPARISON: 04/24/2024 FINDINGS: No acute fracture. The humeral head appears inferiorly subluxed. No transscapular Y view obtained. Cannot confirm if the left shoulder is located. No significant focal degenerative change. Other: n/a IMPRESSION: No fracture identified. Inferiorly subluxed left humeral head. The shoulder may be dislocated but a t ransscapular Y view would be needed to confirm.
[2024-04-25] MEDS ORDERED: DIAZEPAM 5 MG TABLET ONE (20:19)
--- NOTE | 2024-04-25 20:19 | RAD REPORT ---
EXAMINATION: Shoulder 1 View CLINICAL INDICATION: Female, 49 years old. PAIN COMPARISON: No prior exam. VIEWS: One view FINDINGS: The left shoulder is located on the transscapular Y view. IMPRESSION: The left shoulder is located.
--- NOTE | 2024-04-25 21:06 | EDPHYS ---
Physician Documentation [facility] Name: Geetha Khan Age: 49 yrs Sex: Female : 1975 Arrival Date: 04/25/2024 Time: 18:33 Bed 18 Private MD: ED Physician Russell Rodriguez HPI: 04/25 18:55 This 49 yrs old Female presents to ER via EMS with complaints of Chest Pain, Shoulder cp Pain. 18:55 The patient or guardian complains of pain. cp 18:55 chest and left shoulder. cp 18:55 Onset: The symptoms/episode began/occurred today. Associated signs and symptoms: cp Pertinent negatives: abdominal pain, diaphoresis, neck pain, shortness of breath. Severity of symptoms: in the emergency department the symptoms are unchanged, despite EMS interventions. 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 - Infectious Disease History:: Denies. - Social history:: Smoking status: unknown. ROS: 19:00 Constitutional: Negative for body aches, chills, fever, poor PO intake, cp 19:00 Eyes: Negative for injury, pain, redness, and discharge, cp 19:00 Cardiovascular: Positive for chest pain, Negative for palpitations, 19:00 Respiratory: Negative for cough, shortness of breath, wheezing, 19:00 Abdomen/GI: Negative for abdominal pain, vomiting, diarrhea, constipation, 19:00 MS/extremity: Positive for pain, of the left shoulder, 19:00 Neuro: Negative for altered mental status, headache, speech changes, cp 19:00 All other systems are negative, Exam: 19:05 Constitutional: The patient appears in no acute distress, alert, awake, cp non-diaphoretic, non-toxic, well developed, well nourished, 19:05 Head/Face: Normocephalic, atraumatic. cp 19:05 Eyes: Periorbital structures: appear normal, Conjunctiva: normal, no exudate, no injection, Sclera: no appreciated abnormality, Lids and lashes: appear normal, bilaterally, 19:05 ENT: External ear(s): are unremarkable, Nose: is normal, Mouth: Lips: moist, Oral mucosa: moist, Posterior pharynx: Airway: no evidence of obstruction, patent, 19:05 Neck: C-spine: vertebral tenderness, is not appreciated, crepitus, is not appreciated, ROM/movement: is normal, is supple, without pain, no range of motions limitations, 19:05 Chest/axilla: Inspection: normal, 19:05 Cardiovascular: Rate: normal, Rhythm: regular, JVD: is not appreciated, 19:05 Respiratory: the patient does not display signs of respiratory distress, Respirations: normal, no use of accessory muscles, no retractions, labored breathing, is not present, Breath sounds: are clear throughout, no decreased breath sounds, no stridor, no wheezing, 19:05 Abdomen/GI: Inspection: abdomen appears normal, Palpation: abdomen is soft and non-tender, in all quadrants, 19:05 Musculoskeletal/extremity: Extremities: noted in the left shoulder: pain, tenderness, There is no evidence of decreased ROM, deformity, ROM: limited passive range of motion due to pain, in the left shoulder, 19:05 Neuro: Orientation: to person, place \T\ time. Mentation: is normal, 19:43 ECG was reviewed by the Attending Physician. Vital Signs: 18:45 BP 121 / 76; Pulse 80; Resp 18; Temp 98.2; Pulse Ox 100% ; Weight 65.77 kg; Height 5 kj2 ft. 2 in. ; 19:40 BP 118 / 71; Pulse 78; Resp 20; Pulse Ox 100% on R/A; kj2 20:40 BP 112 / 69; Pulse 63; Resp 20; Pulse Ox 98% on R/A; kj2 21:26 BP 118 / 68; Pulse 64; Resp 18; Temp 98; Pulse Ox 100% on R/A; kj2 18:45 Body Mass Index 26.52 (65.77 kg, 157.48 cm) kj2 MDM: 18:38 Medical Screening Exam initiated cp 21:05 Data reviewed: vital signs, nurses notes, lab test result(s), EKG, radiologic studies, cp plain films, and as a result, I will discharge patient. 04/25 18:48 Order name: Troponin High Sensitivity; Complete Time: 20:14 cp 04/25 20:14 Interpretation: Reviewed. cp 04/25 18:48 Order name: XRAY Shoulder LEFT 2 view; Complete Time: 20:14 cp 04/25 19:28 Order name: XRAY Shoulder (1 View): scapular y-view; Complete Time: 20:42 cp 04/25 20:42 Interpretation: Reviewed. cp 04/25 18:48 Order name: EKG; Complete Time: 18:48 cp 04/25 18:48 Order name: EKG - Nurse/Tech; Complete Time: 20:11 cp 04/25 20:14 Order name: Misc. Order: place patient in shoulder immobilizer; Complete Time: 20:17 cp EC:43 Rate is 68 beats/min. Rhythm is regular. ND interval is normal. QRS interval is normal. cp QT interval is normal. T waves are Inverted in leads I, II, aVL, V5, V6. Interpreted by me. Reviewed by me. Administered Medications: 19:13 Drug: Ketorolac IM 15 mg IM once Route: IM; Site: left deltoid; kj2 20:13 Follow up: Response: No adverse reaction kj2 20:21 Drug: Diazepam PO 5 mg PO once Route: PO; kj2 21:13 Follow up: Response: No adverse reaction kj2 Disposition Summary: 04/25/24 21:05 Discharge Ordered Notes: Location: Home cp Problem: new cp Symptoms: have improved cp Condition: Stable cp Diagnosis - Pain in left shoulder cp - Chest pain, unspecified cp Followup: cp - With: Sage Griffiths MD - When: 2 - 3 days - Reason: left shoulder pain Discharge Instructions: - Discharge Summary Sheet cp - Nonspecific Chest Pain, Adult cp - Shoulder Pain cp - Shoulder Range of Motion Exercises cp Forms: - Medication Reconciliation Form cp - Antibiotic Education cp - Prescription Opioid Use cp - Patient Portal Instructions cp - Leadership Thank You Letter cp Prescriptions: - diclofenac sodium 3 % Topical gel - apply 1 application TOPICAL route every 12 hours As needed apply to left cp shoulder as directed for pain; 45 gram tube; Refills: 0, Product Selection Permitted Signatures: Dispatcher [employer] EDMS Michael Nguyen PA PA cp Hortencia Maldonado RN RN kj2 Corrections: (The following items were deleted from the chart) 18:48 18:48 Shoulder Left 2 View+RAD.RAD.BRZ ordered. EDMS EDMS 19:29 19:29 Shoulder 1 View+RAD.RAD.BRZ ordered. EDMS EDMS
--- NOTE | 2024-04-25 21:06 | ER ---
Nurse's Notes [facility] Name: Geetha Khan Age: 49 yrs Sex: Female : 1975 Arrival Date: 04/25/2024 Time: 18:33 Bed 18 Private MD: Diagnosis: Pain in left shoulder;Chest pain, unspecified Presentation: 04/25 18:37 Chief complaint: EMS states: CHEST PAIN. kj2 18:37 Method Of Arrival: EMS: [facility] kj2 18:39 Coronavirus screen: Client denies travel out of the [place] in the last 14 days. Ebola kj2 Screen: No symptoms or risks identified at this time. Initial Sepsis Screen: Does the patient meet any 2 criteria? No. Patient's initial sepsis screen is negative. Does the patient have a suspected source of infection? No. Patient's initial sepsis screen is negative. Risk Assessment: Do you want to hurt yourself or someone else? Patient reports no desire to harm self or others. Onset of symptoms was April 25, 2024. 18:39 Acuity: CORRINA 3 kj2 Triage Assessment: 18:41 General: Appears. kj2 18:41 General: Appears in no apparent distress. Behavior is calm, cooperative. Pain: kj2 Complains of pain in CHEST Pain currently is 3 out of 10 on a pain scale. Neuro: Level of Consciousness is awake, alert, obeys commands, Oriented to person, place, time, situation. Cardiovascular: Patient's skin is warm and dry. Respiratory: Airway is patent Respiratory effort is even, unlabored. GI: No signs and/or symptoms were reported involving the gastrointestinal system. : No signs and/or symptoms were reported regarding the genitourinary system. 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 - Infectious Disease History:: Denies. - Social history:: Smoking status: unknown. Screenin:39 [facility] ED Fall Risk Assessment (Adult) History of falling in the last 3 months, kj2 including since admission No falls in past 3 months (0 pts) Confusion or Disorientation No (0 pts) Intoxicated or Sedated No (0 pts) Impaired Gait Yes (1 pt) Mobility Assist Device Used Yes (1 pt) Altered Elimination No (0 pt) Score/Fall Risk Level 0 - 2 = Low Risk Maintained a safe environment, Hourly rounding (assess needs \T\ fall precautionary measures) done. Abuse screen: Denies threats or abuse. Denies injuries from another. Nutritional screening: No deficits noted. Tuberculosis screening: No symptoms or risk factors identified. Assessment: 18:40 General: SEE TRIAGE ASSESSMENT. kj2 18:45 Pain: Pain does not radiate. Pain began suddenly. kj2 19:40 Reassessment: Patient appears in no apparent distress at this time. Patient and/or kj2 family updated on plan of care and expected duration. Pain level reassessed. Patient is alert, oriented x 3, equal unlabored respirations, skin warm/dry/pink. 20:40 Reassessment: Patient appears in no apparent distress at this time. Patient and/or kj2 family updated on plan of care and expected duration. Pain level reassessed. Patient is alert, oriented x 3, equal unlabored respirations, skin warm/dry/pink. 21:26 Reassessment: Patient appears in no apparent distress at this time. Patient and/or kj2 family updated on plan of care and expected duration. Pain level reassessed. Patient is alert, oriented x 3, equal unlabored respirations, skin warm/dry/pink. Vital Signs: 18:45 BP 121 / 76; Pulse 80; Resp 18; Temp 98.2; Pulse Ox 100% ; Weight 65.77 kg; Height 5 kj2 ft. 2 in. ; 19:40 BP 118 / 71; Pulse 78; Resp 20; Pulse Ox 100% on R/A; kj2 20:40 BP 112 / 69; Pulse 63; Resp 20; Pulse Ox 98% on R/A; kj2 21:26 BP 118 / 68; Pulse 64; Resp 18; Temp 98; Pulse Ox 100% on R/A; kj2 18:45 Body Mass Index 26.52 (65.77 kg, 157.48 cm) kj2 ED Course: 18:36 Patient arrived in ED. em1 18:36 Hortencia Maldonado, YANETH is Primary Nurse. kj2 18:36 Michael Nguyen PA is PHCP. cp 18:36 Russell Rodriguez MD is Attending Physician. cp 18:39 Triage completed. kj2 18:40 Patient has correct armband on for positive identification. Bed in low position. Call kj2 light in reach. Provided Education on: CALL LIGHT. Client placed on continuous cardiac and pulse oximetry monitoring. NIBP monitoring applied. pvc monitor on. Pulse ox on. 18:43 No provider procedures requiring assistance completed. Patient maintains SpO2 kj2 saturation greater than 95% on room air. 19:00 Arm band placed on Patient placed in an exam room, on a stretcher. EKG completed in kj2 triage. Results shown to MD. 19:11 XRAY Shoulder LEFT 2 view In Process Unspecified. EDMS 19:30 Initial lab(s) drawn, by me, sent to lab. sa1 19:33 Troponin High Sensitivity Sent. sa1 20:08 XRAY Shoulder (1 View): scapular y-view In Process Unspecified. EDMS 21:03 Sage Griffiths MD is Referral Physician. cp 21:12 Patient did not have IV access during this emergency room visit. kj2 Administered Medications: 19:13 Drug: Ketorolac IM 15 mg IM once Route: IM; Site: left deltoid; kj2 20:13 Follow up: Response: No adverse reaction kj2 20:21 Drug: Diazepam PO 5 mg PO once Route: PO; kj2 21:13 Follow up: Response: No adverse reaction kj2 Medication: 18:43 VIS not applicable for this client. kj2 Outcome: 21:05 Discharge ordered by MD. cp 21:12 Discharged to home via wheelchair, kj2 21:12 Condition: stable 21:12 Discharge instructions given to patient, Instructed on discharge instructions, Demonstrated understanding of instructions, follow-up care, 21:27 Patient left the ED. kj2 Signatures: Dispatcher [employer] EDMS Reyes Khan 1 Michael Nguyen PA PA cp Sultan Judy 1 Hortencia Maldonado RN RN kj2
[2024-04-25 21:35] VITALS: BP 118/68; TEMP 98; O2SAT 100
--- NOTE | 2024-04-28 12:50 | EKG ---
Test Date: 2024-04-25 Test Time: 19:37:32 Guest Service Manager: JOE MEASUREMENT RESULTS: Intervals: Rate: 68 PA: 162 QRSD: 86 QT: 408 QTc: 433 [place]: P: 51 PA: 162 QRS: 23 T: 170 INTERPRETIVE STATEMENTS: Normal sinus rhythm Left ventricular hypertrophy with repolarization abnormality Abnormal ECG Compared to ECG 04/22/2024 21:15:58 No significant changes Electronically Signed On 04-28-24 12:44:15 MANAGER RESOURCE by Alan Garay
== END 2024-04-25 21:27 | disposition home or self-care (01) ==
LOC: ER 18:33
DX: R07.9 Chest pain, unspecified (principal); M25.512 Pain in left shoulder
CPT/HCPCS: 36415; 73020; 84484; 93005; 96372; 99285

== ENCOUNTER 2024-04-26 17:37 | Emergency (ER) | payer OTHER ==
[2024-04-26] MEDS ORDERED: TRAMADOL HCL 50 MG TAB ONE (19:20)
[2024-04-26] MEDS ORDERED: DIAZEPAM 5 MG TABLET ONE (19:20)
--- NOTE | 2024-04-26 19:36 | ER ---
Nurse's Notes [facility] Name: Geetha Khan Age: 49 yrs Sex: Female : 1975 Arrival Date: 04/26/2024 Time: 17:37 Bed DX1 Private MD: Diagnosis: Pain in left shoulder Presentation: 04/26 18:00 Chief complaint: Patient states: anxiety and shoulder pain. Pt was seen in ER yesterday ss for same complaints. Risk Assessment: Do you want to hurt yourself or someone else? Patient reports no desire to harm self or others. 18:00 Acuity: CORRINA 4 ss 18:00 Method Of Arrival: EMS: [facility] ss 19:53 Coronavirus screen: Client denies travel out of the [place] in the last 14 days. Ebola ha1 Screen: No symptoms or risks identified at this time. Initial Sepsis Screen: Does the patient meet any 2 criteria? No. Patient's initial sepsis screen is negative. Does the patient have a suspected source of infection? No. Patient's initial sepsis screen is negative. Onset of symptoms was April 26, 2024. Triage Assessment: 18:00 General: Appears in no apparent distress. Behavior is calm, appropriate for age. EENT: ss Oral mucosa is moist. Neuro: Level of Consciousness is awake, alert, obeys commands, Oriented to person, place, time, situation. Respiratory: Respiratory effort is even, unlabored, Respiratory pattern is regular, symmetrical. Derm: Skin is pink, warm \T\ dry. normal. Historical: - Allergies: 19:04 Aspirin; ss 19:04 CRANBERRY; ss 19:04 FISH PRODUCT DERIVATIVES; ss 19:04 GRAPEFRUIT; ss 19:04 mushroom; ss 19:04 SHELLFISH; ss - PMHx: 19:04 Cerebrovascular accident; Left sided paralysis post CVA; Hypertensive disorder; Chronic ss obstructive lung disease; Myocardial infarction; Seizure; - Immunization history:: Adult Immunizations unknown. - Infectious Disease History:: Denies. - Social history:: Smoking status: Patient reports the use of cigarette tobacco products, smokes one-half pack cigarettes per day. Screenin:52 [facility] ED Fall Risk Assessment (Adult) History of falling in the last 3 months, ha1 including since admission No falls in past 3 months (0 pts) Confusion or Disorientation No (0 pts) Intoxicated or Sedated No (0 pts) Impaired Gait Yes (1 pt) Mobility Assist Device Used Yes (1 pt) Altered Elimination No (0 pt) Score/Fall Risk Level 3 or more points = High Risk Oriented to surroundings, Maintained a safe environment, Educated pt \T\ family on fall prevention, incl call for assistance when getting out of bed, Hourly rounding (assess needs \T\ fall precautionary measures) done. Abuse screen: Denies threats or abuse. Denies injuries from another. Nutritional screening: No deficits noted. Tuberculosis screening: No symptoms or risk factors identified. Assessment: 19:34 Reassessment: Patient and/or family updated on plan of care and expected duration. Pain ha1 level reassessed. Patient is alert, oriented x 3, equal unlabored respirations, skin warm/dry/pink. Patient states feeling better. Patient states symptoms have improved. Vital Signs: 19:15 BP 107 / 68; Pulse 73; Resp 16 S; Temp 97.1(T); Pulse Ox 97% on R/A; Weight 65.77 kg ha1 (R); Height 5 ft. 4 in. ; 19:15 Body Mass Index 24.89 (65.77 kg, 162.56 cm) ha1 ED Course: 17:38 Patient arrived in ED. ra3 18:03 Michael Nguyen PA is PHCP. cp 18:03 Gene Medrano MD is Attending Physician. cp 19:01 Patient's name was called from ER lobby. No response. ss 19:04 Triage completed. ss 19:04 Arm band placed on right wrist. ss 19:31 Aydee Ulrich, YANETH is Primary Nurse. ha1 19:35 Sage Griffiths MD is Referral Physician. cp 19:52 No provider procedures requiring assistance completed. Patient did not have IV access ha1 during this emergency room visit. 19:53 Patient has correct armband on for positive identification. Bed in low position. Call ha1 light in reach. Side rails up X 1. Provided Education on: follow ups . Administered Medications: 19:15 Drug: Diazepam PO 5 mg PO once Route: PO; ha1 19:35 Follow up: Response: No adverse reaction; Pain is decreased; RASS: Alert and Calm (0) ha1 19:15 Drug: traMADol PO 50 mg PO once Route: PO; ha1 19:34 Follow up: Response: No adverse reaction; Pain is decreased; RASS: Alert and Calm (0) ha1 Medication: 19:53 VIS not applicable for this client. ha1 Outcome: 19:36 Discharge ordered by MD. cp 19:53 Discharged to home via wheelchair, ha1 19:53 Condition: stable 19:53 Discharge instructions given to patient, Instructed on discharge instructions, follow up and referral plans. Demonstrated understanding of instructions, follow-up care, 19:54 Patient left the ED. ha1 Signatures: Angelia Jernigan RN RN Michael Nguyen PA PA cp Ayala, Heidy, RN RN ha1 Renea Gallardo ra3 Corrections: (The following items were deleted from the chart) 19:14 19:00 Chief complaint: Patient states: anxiety and shoulder pain. Pt was seen in ER ss yesterday for same complaints 19: 19:00 Risk Assessment: Do you want to hurt yourself or someone else? Patient reports no ss desire to harm self or others. : 19:00 Care prior to arrival: [facility] : 19:00 Acuity: CORRINA 4 [facility] 19: 19:00 Method Of Arrival: EMS: [facility]
--- NOTE | 2024-04-26 19:36 | EDPHYS ---
Physician Documentation [facility] Name: Geetha Khan Age: 49 yrs Sex: Female : 1975 Arrival Date: 04/26/2024 Time: 17:37 Bed DX1 Private MD: ED Physician Gene Medrano HPI: 04/26 19:15 This 49 yrs old Female presents to ER via EMS with complaints of Arm Pain. cp 19:15 The patient or guardian complains of pain, that is acute. The complaints affect the cp left shoulder. Context: resulted from recent fall causing dislocation. Treatment prior to arrival includes: no previous treatment. Associated signs and symptoms: Pertinent positives: anxiety. Historical: - Allergies: 19:04 Aspirin; ss 19:04 CRANBERRY; ss 19:04 FISH PRODUCT DERIVATIVES; ss 19:04 GRAPEFRUIT; ss 19:04 mushroom; ss 19:04 SHELLFISH; ss - PMHx: 19:04 Cerebrovascular accident; Left sided paralysis post CVA; Hypertensive disorder; Chronic ss obstructive lung disease; Myocardial infarction; Seizure; - Immunization history:: Adult Immunizations unknown. - Infectious Disease History:: Denies. - Social history:: Smoking status: Patient reports the use of cigarette tobacco products, smokes one-half pack cigarettes per day. ROS: 19:18 Constitutional: Negative for body aches, chills, fever, poor PO intake, cp 19:18 Respiratory: Negative for cough, shortness of breath, wheezing, 19:18 MS/extremity: Positive for left shoulder pain, Negative for decreased range of motion, deformity, 19:18 Psych: Positive for anxiety, Exam: 19:20 Constitutional: The patient appears in no acute distress, alert, awake, cp non-diaphoretic, non-toxic, well developed, well nourished, 19:20 Head/Face: Normocephalic, atraumatic. cp 19:20 Eyes: Periorbital structures: appear normal, Conjunctiva: normal, no exudate, no injection, Sclera: no appreciated abnormality, Lids and lashes: appear normal, bilaterally, 19:20 ENT: External ear(s): are unremarkable, Nose: is normal, Mouth: Lips: moist, Oral mucosa: moist, Posterior pharynx: Airway: no evidence of obstruction, patent, 19:20 Neck: ROM/movement: is normal, is supple, without pain, no range of motions limitations, 19:20 Chest/axilla: Inspection: normal, Palpation: is normal, no crepitus, no tenderness, 19:20 Cardiovascular: Rate: normal, Rhythm: regular, JVD: is not appreciated, 19:20 Respiratory: the patient does not display signs of respiratory distress, Respirations: normal, no use of accessory muscles, no retractions, labored breathing, is not present, Breath sounds: are clear throughout, no decreased breath sounds, no stridor, no wheezing, 19:20 Abdomen/GI: Exam negative for discomfort, distension, guarding, Inspection: abdomen appears normal, 19:20 Back: pain, is absent, ROM is normal, 19:20 Musculoskeletal/extremity: Extremities: noted in the left shoulder: pain, tenderness, shoulder joint in place, There is no evidence of decreased ROM, deformity, Vital Signs: 19:15 BP 107 / 68; Pulse 73; Resp 16 S; Temp 97.1(T); Pulse Ox 97% on R/A; Weight 65.77 kg ha1 (R); Height 5 ft. 4 in. ; 19:15 Body Mass Index 24.89 (65.77 kg, 162.56 cm) ha1 MDM: 19:00 Medical Screening Exam initiated 19:20 Differential diagnosis: dislocation, tendonitis, strain. 19:35 Data reviewed: vital signs, nurses notes, and as a result, I will discharge patient. 19:35 I considered the following discharge prescriptions or medication management in the emergency department Medications were administered in the Emergency Department. See MAR. Counseling: I had a detailed discussion with the patient and/or guardian regarding the historical points, exam findings, and any diagnostic results supporting the discharge/admit diagnosis, the need for outpatient follow up, a orthopedic surgeon, to return to the emergency department if symptoms worsen or persist or if there are any questions or concerns that arise at home. Response to treatment: the patient's symptoms have mildly improved after treatment, and as a result, I will discharge patient. 04/26 19:31 Order name: Vital Signs; Complete Time: 19:31 Administered Medications: 19:15 Drug: Diazepam PO 5 mg PO once Route: PO; ha1 19:35 Follow up: Response: No adverse reaction; Pain is decreased; RASS: Alert and Calm (0) ha1 19:15 Drug: traMADol PO 50 mg PO once Route: PO; ha1 19:34 Follow up: Response: No adverse reaction; Pain is decreased; RASS: Alert and Calm (0) ha1 Disposition: 04/27 09:42 Co-signature as Attending Physician, Gene Medrano MD I reviewed the patient's care rn provided by the Advanced Practice Provider and agree with the diagnosis and treatment plan. 17:26 Chart complete. cp Disposition Summary: 04/26/24 19:36 Discharge Ordered Notes: Location: Home cp Problem: an ongoing problem cp Symptoms: have improved cp Condition: Stable cp Diagnosis - Pain in left shoulder cp Followup: cp - With: Sage Griffiths MD - When: 2 - 3 days - Reason: left shoulder pain Discharge Instructions: - Discharge Summary Sheet cp - Shoulder Pain cp - Shoulder Range of Motion Exercises cp Forms: - Medication Reconciliation Form cp - Antibiotic Education cp - Prescription Opioid Use cp - Patient Portal Instructions cp - Leadership Thank You Letter cp Signatures: Gene Medrano MD MD rn Blanchard, Shelby RN RN Michael Nguyen PA PA cp Aydee Ulrich RN RN [facility]
[2024-04-26 20:31] VITALS: BP 107/68; TEMP 97.1; O2SAT 97
== END 2024-04-26 19:54 | disposition home or self-care (01) ==
LOC: ER 17:37
DX: M25.512 Pain in left shoulder (principal); F41.9 Anxiety disorder, unspecified; F17.210 Nicotine dependence, cigarettes, uncomplicated
CPT/HCPCS: 99283

== ENCOUNTER 2024-04-29 19:34 | Emergency (ER) | payer OTHER ==
--- NOTE | 2024-04-29 20:55 | ER ---
Nurse's Notes [facility] Name: Geetha Khan Age: 49 yrs Sex: Female : 1975 Arrival Date: 04/29/2024 Time: 19:34 Bed DX3 Private MD: Diagnosis: Acute Generalized pain , Musculoskeletal Left shoulder pain , Acute Exacerbation of chronic pain Presentation: 04/29 20:13 Chief complaint: EMS states: toned out for left shoulder and chest pain. Dislocated me1 left shoulder recently and reports pain is 10/10. Coronavirus screen: Vaccine status: Patient reports being unvaccinated. Ebola Screen: No symptoms or risks identified at this time. Initial Sepsis Screen: Does the patient meet any 2 criteria? No. Patient's initial sepsis screen is negative. Does the patient have a suspected source of infection? No. Patient's initial sepsis screen is negative. Risk Assessment: Do you want to hurt yourself or someone else? Patient reports no desire to harm self or others. Onset of symptoms is unknown. 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 - Infectious Disease History:: Denies. - Social history:: Smoking status: Patient reports the use of cigarette tobacco products, smokes one-half pack cigarettes per day. - Family history:: not pertinent. Screenin:30 [facility] ED Fall Risk Assessment (Adult) History of falling in the last 3 months, ha1 including since admission Yes- single mechanical fall (1 pt) Confusion or Disorientation No (0 pts) Intoxicated or Sedated No (0 pts) Impaired Gait Yes (1 pt) Mobility Assist Device Used No (0 pt) Altered Elimination No (0 pt) Score/Fall Risk Level 3 or more points = High Risk Oriented to surroundings, Maintained a safe environment, Educated pt \T\ family on fall prevention, incl call for assistance when getting out of bed, Hourly rounding (assess needs \T\ fall precautionary measures) done. Abuse screen: Denies threats or abuse. Denies injuries from another. Nutritional screening: No deficits noted. Tuberculosis screening: No symptoms or risk factors identified. Assessment: 20:30 General: Appears uncomfortable, Behavior is calm, cooperative. Pain: Complains of pain ha1 in left shoulder. Neuro: Level of Consciousness is awake, alert, obeys commands, Oriented to person, place, time, situation. Neuro: Reports anxiety . Cardiovascular: Capillary refill < 3 seconds Patient's skin is warm and dry. Respiratory: Airway is patent Respiratory effort is even, unlabored, Respiratory pattern is regular, symmetrical. GI: No signs and/or symptoms were reported involving the gastrointestinal system. Derm: Skin is pink, warm \T\ dry. 21:09 Reassessment: Patient and/or family updated on plan of care and expected duration. Pain ha1 level reassessed. Patient is alert, oriented x 3, equal unlabored respirations, skin warm/dry/pink. Patient states feeling better. Vital Signs: 20:13 BP 135 / 104; Pulse 81; Resp 19; Temp 98; Pulse Ox 100% ; Weight 65.77 kg; Height 5 ft. me1 4 in. ; Pain 10/10; 20:13 Body Mass Index 24.89 (65.77 kg, 162.56 cm) me1 20:13 Pain Scale: Adult me1 Mariluz Coma Score: 02 20:01 Eye Response: spontaneous(4). Motor Response: obeys commands(6). Verbal Response: sp4 oriented(5). Total: 15. ED Course: 04/29 19:36 Patient arrived in ED. im 20:04 Uriel Cannon MD is Attending Physician. sp4 20:14 Triage completed. me1 20:14 Arm band placed on Patient placed in waiting room. me1 21:11 No provider procedures requiring assistance completed. Patient did not have IV access ha1 during this emergency room visit. 21:12 Patient has correct armband on for positive identification. Bed in low position. Call ha1 light in reach. Side rails up X 1. Provided Education on: follow up with PCP. Administered Medications: 20:50 Drug: Acetaminophen PO 1000 mg PO once Route: PO; ha1 21:13 Follow up: Response: No adverse reaction; Marked relief of symptoms; Pain is decreased ha1 20:50 Drug: Ketorolac PO 10 mg PO once Route: PO; ha1 21:12 Follow up: Response: No adverse reaction; Marked relief of symptoms; Pain is decreased ha1 20:50 Drug: Methocarbamol PO 1500 mg PO once Route: PO; ha1 21:12 Follow up: Response: No adverse reaction; Marked relief of symptoms ha1 20:57 Drug: Diazepam PO 5 mg PO once Route: PO; ha1 21:12 Follow up: Response: No adverse reaction; Marked relief of symptoms ha1 Medication: 21:12 VIS not applicable for this client. ha1 Outcome: 20:54 Discharge ordered by . sp4 21:11 Discharged to home via wheelchair, ha1 21:11 Condition: stable 21:11 Discharge instructions given to patient, Instructed on discharge instructions, follow up and referral plans. Demonstrated understanding of instructions, follow-up care, 21:13 Patient left the ED. ha1 Signatures: Aydee Ulrich RN RN ha1 Uriel Cannon MD MD sp4 Verna Jhaveri Michelle RN RN me1
--- NOTE | 2024-04-29 20:55 | EDPHYS ---
Physician Documentation [facility] Name: Geetha Khan Age: 49 yrs Sex: Female : 1975 Arrival Date: 04/29/2024 Time: 19:34 Bed DX3 Private MD: ED Physician Uriel Cannon HPI: 04/29 20:05 This 49 yrs old Female presents to ER via Unassigned with complaints of Pain, sp4 Pt states she needs pain meds. 04/30 20:01 Patient presents with complaint of generalized pain and also left shoulder pain.. 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 - Infectious Disease History:: Denies. - Social history:: Smoking status: Patient reports the use of cigarette tobacco products, smokes one-half pack cigarettes per day. - Family history:: not pertinent. ROS: 04/30 20:01 Constitutional: Negative for fever, chills, and weight loss, positive for generalized sp4 pain, positive left shoulder pain All other systems are negative, Exam: 20:01 Constitutional: This is a well developed, well nourished patient who is awake, alert, sp4 and in no acute distress. Prior left-sided hemiparesis unchanged Head/Face: Normocephalic, atraumatic. Eyes: Pupils equal round and reactive to light, extra-ocular motions intact. Lids and lashes normal. Conjunctiva and sclera are not injected. Cornea within normal limits. Periorbital areas with no swelling, redness, or edema. ENT: Nares patent. No nasal discharge, no septal abnormalities noted. Tympanic membranes are normal and external auditory canals are clear. Oropharynx with no redness, swelling, or masses, exudates, or evidence of obstruction, uvula midline. Mucous membranes moist. Neck: Trachea midline, no thyromegaly or masses palpated, and no cervical lymphadenopathy. Supple, full range of motion without nuchal rigidity, or vertebral point tenderness. Chest/axilla: Normal chest wall appearance and motion. Nontender with no deformity. No lesions are appreciated. Cardiovascular: Regular rate and rhythm with a normal S1 and S2. No gallops, murmurs, or rubs. Normal PMI, no JVD. No pulse deficits. Respiratory: Lungs have equal breath sounds bilaterally, clear to auscultation and percussion. No rales, rhonchi or wheezes noted. No increased work of breathing, no retractions or nasal flaring. Abdomen/GI: Soft, with normal bowel sounds. No distension or tympany. No guarding or rebound. No evidence of tenderness throughout. Back: No spinal tenderness. No costovertebral tenderness. Skin: Warm, dry with normal turgor. Normal color with no rashes, no lesions, and no evidence of cellulitis. MS/ Extremity: Pulses equal, no cyanosis. Neurovascular intact. Left-sided atrophy from prior hemiparesis. Neuro: Awake and alert, GCS 15, oriented to person, place, time, and situation. Hemiparetic from prior CVA Psych: Awake, alert, with orientation to person, place and time. Behavior, mood, and affect are within normal limits Vital Signs: 04/29 20:13 BP 135 / 104; Pulse 81; Resp 19; Temp 98; Pulse Ox 100% ; Weight 65.77 kg; Height 5 ft. me1 4 in. ; Pain 10/10; 20:13 Body Mass Index 24.89 (65.77 kg, 162.56 cm) me1 20:13 Pain Scale: Adult me1 Mariluz Coma Score: 04/30 20:01 Eye Response: spontaneous(4). Motor Response: obeys commands(6). Verbal Response: sp4 oriented(5). Total: 15. MDM: 04/29 20:06 Medical Screening Exam initiated sp4 04/30 20:01 Differential diagnosis: acute pericarditis, anxiety, chest wall pain, esophagitis, sp4 gastritis. Data reviewed: vital signs, nurses notes, old medical records. ED course: Patient is well-known to me she is here for chronic pain with acute exacerbation. Patient was provided pain medications. Discharged without problem.. Administered Medications: 04/29 20:50 Drug: Acetaminophen PO 1000 mg PO once Route: PO; ha1 21:13 Follow up: Response: No adverse reaction; Marked relief of symptoms; Pain is decreased ha1 20:50 Drug: Ketorolac PO 10 mg PO once Route: PO; ha1 21:12 Follow up: Response: No adverse reaction; Marked relief of symptoms; Pain is decreased ha1 20:50 Drug: Methocarbamol PO 1500 mg PO once Route: PO; ha1 21:12 Follow up: Response: No adverse reaction; Marked relief of symptoms ha1 20:57 Drug: Diazepam PO 5 mg PO once Route: PO; ha1 21:12 Follow up: Response: No adverse reaction; Marked relief of symptoms ha1 Disposition Summary: 04/29/24 20:54 Discharge Ordered Notes: Location: Home sp4 Problem: new sp4 Symptoms: have improved sp4 Condition: Stable sp4 Diagnosis - Acute Generalized pain , Musculoskeletal Left shoulder pain , Acute sp4 Exacerbation of chronic pain Followup: sp4 - With: Private Physician - When: As needed - Reason: Discharge Instructions: - Discharge Summary Sheet sp4 - Chest Wall Pain, Pmba-ce-Uuss sp4 Forms: - Patient Portal Instructions sp4 Signatures: Aydee Ulrich RN RN ha1 Uriel Cannon MD MD sp4 Nohemy Clark RN RN me1
[2024-04-29] MEDS ORDERED: ACETAMINOPHEN 500 MG TAB ONE (20:58)
[2024-04-29] MEDS ORDERED: KETOROLAC 10 MG TAB ONE (20:58)
[2024-04-29] MEDS ORDERED: methocarbamoL 750 MG TAB ONE (20:59)
[2024-04-29] MEDS ORDERED: DIAZEPAM 5 MG TABLET ONE (20:59)
[2024-04-29 21:23] VITALS: BP 135/104; TEMP 98; O2SAT 100
== END 2024-04-29 21:13 | disposition home or self-care (01) ==
LOC: ER 19:34
DX: G89.29 Other chronic pain (principal); M25.512 Pain in left shoulder

== ENCOUNTER 2024-04-30 22:36 | Emergency (ER) | payer OTHER ==
[2024-04-30] MEDS ORDERED: ACETAMINOPHEN 500 MG TAB ONE (22:54)
[2024-04-30] MEDS ORDERED: KETOROLAC 10 MG TAB ONE (22:54)
[2024-04-30] MEDS ORDERED: ONDANSETRON 4 MG (ODT) TAB ONE (22:54)
[2024-04-30] MEDS ORDERED: DIAZEPAM 5 MG TABLET ONE (22:55)
--- NOTE | 2024-04-30 23:27 | EDPHYS ---
Physician Documentation [facility] Name: Geetha Khan Age: 49 yrs Sex: Female : 1975 Arrival Date: 04/30/2024 Time: 22:36 Bed 17 Private MD: ED Physician Uriel Cannon HPI: 04/30 22:37 This 49 yrs old Female presents to ER via Unassigned with complaints of Pain. sp4 Historical: - Allergies: 23:51 Aspirin; jj7 23:51 CRANBERRY; jj7 23:51 FISH PRODUCT DERIVATIVES; jj7 23:51 GRAPEFRUIT; jj7 23:51 mushroom; jj7 23:51 SHELLFISH; jj7 - PMHx: 23:51 Cerebrovascular accident; Chronic obstructive lung disease; Seizure; Hypertensive jj7 disorder; Left sided paralysis post CVA; Myocardial infarction; - Immunization history:: Adult Immunizations not immunized, Client reports having NOT received the Covid vaccine. Flu vaccine is up to date. - Infectious Disease History:: Denies. - Social history:: Smoking status: Patient reports the use of cigarette tobacco products, 2 CIGARETTES A DAY, Patient/guardian denies using alcohol, street drugs, IV drugs. Vital Signs: 22:36 BP 115 / 73; Pulse 109; Resp 16; Temp 97.9; Pulse Ox 100% ; Weight 65.77 kg; Height 5 jj7 ft. 4 in. ; 23:46 BP 102 / 56; Pulse 98; Resp 17; Pulse Ox 99% ; Pain 0/10; jj7 22:36 Body Mass Index 24.89 (65.77 kg, 162.56 cm) jj7 23:46 Pain Scale: Adult jj7 MDM: 23:06 Medical Screening Exam initiated sp4 Administered Medications: 22:59 Drug: Ketorolac PO 10 mg PO once Route: PO; jj7 23:48 Follow up: Response: Marked relief of symptoms jj7 22:59 Drug: Acetaminophen PO 1000 mg PO once Route: PO; jj7 23:48 Follow up: Response: Marked relief of symptoms jj7 22:59 Drug: Ondansetron PO 4 mg PO once Route: PO; jj7 23:48 Follow up: Response: Marked relief of symptoms jj7 23:00 Drug: Diazepam PO 5 mg PO once Route: PO; jj7 23:49 Follow up: Response: Marked relief of symptoms jj7 Disposition Summary: 04/30/24 23:26 Discharge Ordered Notes: Location: Home sp4 Problem: new sp4 Symptoms: have improved sp4 Condition: Stable sp4 Diagnosis - Pain in left shoulder sp4 - Acute exacerbation of chronic pain sp4 Followup: sp4 - With: Private Physician - When: 7 - 10 days - Reason: Recheck today's complaints Discharge Instructions: - Discharge Summary Sheet sp4 - Shoulder Pain sp4 Forms: - Patient Portal Instructions sp4 Signatures: Ernestine Nielson RN RN jj7 Uriel Cannon MD MD sp4
--- NOTE | 2024-04-30 23:53 | ER ---
Nurse's Notes [facility] Name: Geetha Khan Age: 49 yrs Sex: Female : 1975 Arrival Date: 04/30/2024 Time: 22:36 Bed 17 Private MD: Diagnosis: Pain in left shoulder;Acute exacerbation of chronic pain Presentation: 04/30 22:36 Chief complaint: Patient states: CP, LEFT ARM PAIN AND ANXIETY. Coronavirus screen: At [facility] this time, the client does not indicate any symptoms associated with coronavirus-19. Ebola Screen: No symptoms or risks identified at this time. Initial Sepsis Screen: Does the patient meet any 2 criteria? HR > 90 bpm. Yes Does the patient have a suspected source of infection? No. Patient's initial sepsis screen is negative. Risk Assessment: Do you want to hurt yourself or someone else? Patient reports no desire to harm self or others. Onset of symptoms is unknown. 22:36 Method Of Arrival: EMS: [facility] j7 22:36 Acuity: CORRINA 4 jj7 Triage Assessment: 22:36 General: Appears in no apparent distress. comfortable, Behavior is calm, cooperative, jj7 appropriate for age. Pain: Complains of pain in chest and left arm. Cardiovascular: Reports chest pain. Historical: - Allergies: 23:51 Aspirin; jj7 23:51 CRANBERRY; jj7 23:51 FISH PRODUCT DERIVATIVES; jj7 23:51 GRAPEFRUIT; jj7 23:51 mushroom; jj7 23:51 SHELLFISH; jj7 - PMHx: 23:51 Cerebrovascular accident; Chronic obstructive lung disease; Seizure; Hypertensive jj7 disorder; Left sided paralysis post CVA; Myocardial infarction; - Immunization history:: Adult Immunizations not immunized, Client reports having NOT received the Covid vaccine. Flu vaccine is up to date. - Infectious Disease History:: Denies. - Social history:: Smoking status: Patient reports the use of cigarette tobacco products, 2 CIGARETTES A DAY, Patient/guardian denies using alcohol, street drugs, IV drugs. Screenin:36 [facility] ED Fall Risk Assessment (Adult) History of falling in the last 3 months, jj7 including since admission Yes- single mechanical fall (1 pt) Confusion or Disorientation No (0 pts) Intoxicated or Sedated No (0 pts) Impaired Gait Yes (1 pt) Mobility Assist Device Used No (0 pt) Altered Elimination No (0 pt) Score/Fall Risk Level 0 - 2 = Low Risk Oriented to surroundings, Maintained a safe environment, Educated pt \T\ family on fall prevention, incl call for assistance when getting out of bed, Assessed \T\ reinforced patient's understanding of fall precautions. Abuse screen: Denies threats or abuse. Nutritional screening: No deficits noted. Tuberculosis screening: No symptoms or risk factors identified. Assessment: 22:36 Reassessment: SEE TRIAGE ASSESSMENT. jj7 Vital Signs: 22:36 BP 115 / 73; Pulse 109; Resp 16; Temp 97.9; Pulse Ox 100% ; Weight 65.77 kg; Height 5 jj7 ft. 4 in. ; 23:46 BP 102 / 56; Pulse 98; Resp 17; Pulse Ox 99% ; Pain 0/10; jj7 22:36 Body Mass Index 24.89 (65.77 kg, 162.56 cm) jj7 23:46 Pain Scale: Adult j7 ED Course: 22:36 Patient arrived in ED. jj6 22:36 Arm band placed on right wrist. Patient placed in an exam room. jj7 22:36 Patient has correct armband on for positive identification. Bed in low position. Call jj7 light in reach. Side rails up X2. Provided Education on: USE OF CALL NEWBY. Warm blanket given. 22:36 No provider procedures requiring assistance completed. Patient did not have IV access jj7 during this emergency room visit. 22:37 Uriel Cannon MD is Attending Physician. sp4 22:51 Ernestine Nielson RN is Primary Nurse. jj7 23:41 Triage completed. jj7 Administered Medications: 22:59 Drug: Ketorolac PO 10 mg PO once Route: PO; jj7 23:48 Follow up: Response: Marked relief of symptoms jj7 22:59 Drug: Acetaminophen PO 1000 mg PO once Route: PO; jj7 23:48 Follow up: Response: Marked relief of symptoms jj7 22:59 Drug: Ondansetron PO 4 mg PO once Route: PO; jj7 23:48 Follow up: Response: Marked relief of symptoms jj7 23:00 Drug: Diazepam PO 5 mg PO once Route: PO; jj7 23:49 Follow up: Response: Marked relief of symptoms jj7 Medication: 22:36 VIS not applicable for this client. jj7 Outcome: 23:26 Discharge ordered by . sp4 23:46 Discharged to home via wheelchair, with family, jj7 23:46 Condition: improved 23:46 Discharge instructions given to patient, Instructed on discharge instructions, Demonstrated understanding of instructions, 23:53 Patient left the ED. jj7 Signatures: Bia Garciaj6 Ernestine Nielson RN RN jj7 Uriel Cannon MD MD sp4
[2024-04-30 23:56] VITALS: TEMP 97.9
[2024-04-30 23:57] VITALS: BP 102/56; O2SAT 99
== END 2024-04-30 23:53 | disposition home or self-care (01) ==
LOC: ER 22:36
DX: G89.29 Other chronic pain (principal); F17.210 Nicotine dependence, cigarettes, uncomplicated
CPT/HCPCS: 99283; Q0162

== ENCOUNTER 2024-05-01 20:22 | Emergency (ER) | payer OTHER ==
--- NOTE | 2024-05-01 20:36 | EDPHYS ---
Physician Documentation [facility] Name: Geetha Khan Age: 49 yrs Sex: Female : 1975 Arrival Date: 05/01/2024 Time: 20:22 Bed IW6 Private MD: ED Physician Uriel Cannon HPI: 05/01 21:44 This 49 yrs old Female presents to ER via EMS with complaints of Pain. sb4 21:44 chest pain that began after having an argument with her sister. similar to her prior sb4 episodes. no radiation of pain. no nausea, vomiting, diarrhea, dizziness, sob. 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 Historical: - Allergies: 20:37 Aspirin; al5 20:37 CRANBERRY; al5 20:37 FISH PRODUCT DERIVATIVES; al5 20:37 GRAPEFRUIT; al5 20:37 mushroom; al5 20:37 SHELLFISH; al5 - Home Meds: 20:37 atorvastatin oral [Active]; amlodipine oral [Active]; Carbamazepine Oral [Active]; al5 clopidogrel 75 mg Oral tablet 1 tab daily [Active]; lisinopril Oral [Active]; Metoprolol Tartrate Oral [Active]; Nitrostat SL [Active]; quetiapine oral [Active]; - PMHx: 20:37 Cerebrovascular accident; Chronic obstructive lung disease; Hypertensive disorder; Left al5 sided paralysis post CVA; Myocardial infarction; Seizure; - Immunization history:: Adult Immunizations up to date. - Infectious Disease History:: Denies. - Social history:: Smoking status: Patient reports the use of cigarette tobacco products, 4 cigarretes/day. ROS: 21:44 Constitutional: Negative for fever, chills, and weight loss, sb4 21:44 Cardiovascular: Positive for chest pain, 21:44 All other systems are negative, Exam: 21:44 Constitutional: This is a well developed, well nourished patient who is awake, alert, sb4 and in no acute distress. Head/Face: Normocephalic, atraumatic. Eyes: Extra-ocular motions intact. Periorbital areas with no swelling, redness, or edema. ENT: Mucous membranes moist. Cardiovascular: Regular rate and rhythm with a normal S1 and S2. Respiratory: No increased work of breathing, no retractions or nasal flaring. Abdomen/GI: Soft, non-tender, no distension. Skin: Warm, dry with normal turgor. Normal color with no rashes, no lesions, and no evidence of cellulitis. Vital Signs: 20:35 BP 144 / 96; Pulse 70; Resp 16; Temp 98.2; Pulse Ox 96% on R/A; Weight 65.77 kg; Height al5 5 ft. 4 in. ; Pain 10/10; 20:35 Body Mass Index 24.89 (65.77 kg, 162.56 cm) al5 20:35 Pain Scale: Adult al5 MDM: 20:35 Medical Screening Exam initiated sb4 21:44 Data reviewed: vital signs, nurses notes, EMS record, and as a result, I will discharge sb4 patient. Counseling: I had a detailed discussion with the patient and/or guardian regarding the historical points, exam findings, and any diagnostic results supporting the discharge/admit diagnosis, the need for outpatient follow up, for definitive care, to return to the emergency department if symptoms worsen or persist or if there are any questions or concerns that arise at home, smoking cessation. Administered Medications: 20:53 Drug: Acetaminophen PO 1000 mg PO once Route: PO; al5 20:53 Follow up: Response: No adverse reaction; Medication administered at discharge. al5 20:53 Drug: Ibuprofen PO 800 mg PO once Route: PO; al5 20:54 Follow up: Response: No adverse reaction; Medication administered at discharge. al5 20:53 Drug: hydrOXYzine PO 25 mg PO once Route: PO; al5 20:54 Follow up: Response: No adverse reaction; Medication administered at discharge. al5 Disposition: 05/02 04:02 Co-signature as Attending Physician, Uriel Cannon MD I agree with the assessment sp4 and plan of care. I reviewed the patient's care provided by the Advanced Practice Provider and agree with the diagnosis and treatment plan. Disposition Summary: 05/01/24 20:36 Discharge Ordered Notes: Location: Home sb4 Problem: an ongoing problem sb4 Symptoms: have improved sb4 Condition: Stable sb4 Diagnosis - Other chronic pain sb4 Followup: sb4 - With: Private Physician - When: 1 week - Reason: Recheck today's complaints, Re-evaluation by your physician Discharge Instructions: - Discharge Summary Sheet sb4 - Chronic Pain, Adult sb4 Forms: - Patient Portal Instructions sb4 - Leadership Thank You Letter sb4 Signatures: Kalli Bradshaw PA-C PA-C sb4 Uriel Cannon MD MD sp4 Anayeli Otero RN RN al5
[2024-05-01] MEDS ORDERED: IBUPROFEN 400 MG TAB ONE (20:49)
[2024-05-01] MEDS ORDERED: hydrOXYzine HCL 25 MG TAB ONE (20:49)
[2024-05-01] MEDS ORDERED: ACETAMINOPHEN 500 MG TAB ONE (20:50)
--- NOTE | 2024-05-01 20:57 | ER ---
Nurse's Notes [facility] Name: Geetha Khan Age: 49 yrs Sex: Female : 1975 Arrival Date: 05/01/2024 Time: 20:22 Bed IW6 Private MD: Diagnosis: Other chronic pain Presentation: 05/01 20:35 Chief complaint: Patient states: she was arguing with her sister about her cigarettes al5 and started to experience chest pain, this was about an hour ago. also states she has not been able to have a bowel movement in 2 days. states she has a BM once a week. Coronavirus screen: At this time, the client does not indicate any symptoms associated with coronavirus-19. Ebola Screen: No symptoms or risks identified at this time. Initial Sepsis Screen: Does the patient meet any 2 criteria? No. Patient's initial sepsis screen is negative. Does the patient have a suspected source of infection? No. Patient's initial sepsis screen is negative. Risk Assessment: Do you want to hurt yourself or someone else? Patient reports no desire to harm self or others. Onset of symptoms was May 01, 2024. 20:35 Method Of Arrival: EMS: [facility] al5 20:35 Acuity: CORRINA 3 al5 Triage Assessment: 20:39 General: Appears in no apparent distress. comfortable, Behavior is calm, cooperative. al5 Pain: Complains of pain in chest. EENT: No signs and/or symptoms were reported regarding the EENT system. Neuro: Level of Consciousness is awake, alert, obeys commands, Oriented to person, place, time, situation. Cardiovascular: Capillary refill < 3 seconds Patient's skin is warm and dry. Respiratory: Airway is patent Respiratory effort is even, unlabored, Respiratory pattern is regular, symmetrical. GI: No signs and/or symptoms were reported involving the gastrointestinal system. : No signs and/or symptoms were reported regarding the genitourinary system. Derm: Skin is intact, is healthy with good turgor, Skin is pink, warm \T\ dry. normal. Musculoskeletal: patient has L sided deficits due to a previous cva. SOFTBALL WINDER: 20:46 Not al5 Historical: - Allergies: 20:37 Aspirin; al5 20:37 CRANBERRY; al5 20:37 FISH PRODUCT DERIVATIVES; al5 20:37 GRAPEFRUIT; al5 20:37 mushroom; al5 20:37 SHELLFISH; al5 - Home Meds: 20:37 atorvastatin oral [Active]; amlodipine oral [Active]; Carbamazepine Oral [Active]; al5 clopidogrel 75 mg Oral tablet 1 tab daily [Active]; lisinopril Oral [Active]; Metoprolol Tartrate Oral [Active]; Nitrostat SL [Active]; quetiapine oral [Active]; - PMHx: 20:37 Cerebrovascular accident; Chronic obstructive lung disease; Hypertensive disorder; Left al5 sided paralysis post CVA; Myocardial infarction; Seizure; - Immunization history:: Adult Immunizations up to date. - Infectious Disease History:: Denies. - Social history:: Smoking status: Patient reports the use of cigarette tobacco products, 4 cigarretes/day. Screenin:46 [facility] ED Fall Risk Assessment (Adult) History of falling in the last 3 months, al5 including since admission No falls in past 3 months (0 pts) Confusion or Disorientation No (0 pts) Intoxicated or Sedated No (0 pts) Impaired Gait Yes (1 pt) Mobility Assist Device Used Yes (1 pt) Altered Elimination Yes (1 pt) Score/Fall Risk Level 3 or more points = High Risk Oriented to surroundings, Maintained a safe environment. Abuse screen: Denies threats or abuse. Denies injuries from another. Nutritional screening: No deficits noted. Tuberculosis screening: No symptoms or risk factors identified. Assessment: 20:45 Reassessment: see triage assessment. al5 Vital Signs: 20:35 BP 144 / 96; Pulse 70; Resp 16; Temp 98.2; Pulse Ox 96% on R/A; Weight 65.77 kg; Height al5 5 ft. 4 in. ; Pain 10/10; 20:35 Body Mass Index 24.89 (65.77 kg, 162.56 cm) al5 20:35 Pain Scale: Adult al5 ED Course: 20:35 Patient arrived in ED. sb4 20:35 Kalli Bradshaw PA-C is PHCP. sb4 20:35 Uriel Cannon MD is Attending Physician. sb4 20:37 Triage completed. al5 20:40 Arm band placed on right wrist. Patient placed in waiting room, in view of staff al5 members, on pulse oximetry, provider in triage speaking with patient at this time. 20:46 Patient has correct armband on for positive identification. Provided Education on: al5 follow up with primary. 20:46 No provider procedures requiring assistance completed. Patient did not have IV access al5 during this emergency room visit. Administered Medications: 20:53 Drug: Acetaminophen PO 1000 mg PO once Route: PO; al5 20:53 Follow up: Response: No adverse reaction; Medication administered at discharge. al5 20:53 Drug: Ibuprofen PO 800 mg PO once Route: PO; al5 20:54 Follow up: Response: No adverse reaction; Medication administered at discharge. al5 20:53 Drug: hydrOXYzine PO 25 mg PO once Route: PO; al5 20:54 Follow up: Response: No adverse reaction; Medication administered at discharge. al5 Medication: 20:46 VIS not applicable for this client. al5 Outcome: 20:36 Discharge ordered by . sb4 20:56 Discharged to home via wheelchair, al5 20:56 Condition: good 20:56 Discharge instructions given to patient, Instructed on discharge instructions, follow up and referral plans. Demonstrated understanding of instructions, follow-up care, 20:57 Patient left the ED. al5 Signatures: Kalli Bradshaw PA-C PAGiseleC sb4 Anayeli Otero RN RN al5 Corrections: (The following items were deleted from the chart) 20:37 20:35 Acuity: CORRINA 2 al5 al5
[2024-05-01 21:02] VITALS: BP 144/96; TEMP 98.2; O2SAT 96
== END 2024-05-01 20:56 | disposition home or self-care (01) ==
LOC: ER 20:22
DX: G89.29 Other chronic pain (principal); I10 Essential (primary) hypertension; J44.9 Chronic obstructive pulmonary disease, unspecified; F17.210 Nicotine dependence, cigarettes, uncomplicated
CPT/HCPCS: 99284

== ENCOUNTER 2024-05-02 18:41 | Emergency (ER) | payer OTHER ==
[2024-05-02] MEDS ORDERED: ACETAMINOPHEN 500 MG TAB ONE (18:44)
[2024-05-02] MEDS ORDERED: IBUPROFEN 400 MG TAB ONE (18:45)
--- NOTE | 2024-05-02 19:35 | RAD REPORT ---
EXAMINATION: ONE VIEW CHEST XR CLINICAL INDICATION: rib pain TECHNIQUE: Frontal chest projection is submitted. Examination is limited by patient positioning and t echnique. COMPARISON: 04/22/2024 FINDINGS: The lungs are mildly emphysematous but clear. The heart is upper limit of normal in size. No displace d fractures identified. IMPRESSION: No acute intrathoracic abnormalities.
--- NOTE | 2024-05-02 19:38 | EDPHYS ---
Physician Documentation [facility] Name: Geetha Khan Age: 49 yrs Sex: Female : 1975 Arrival Date: 05/02/2024 Time: 18:41 Bed 14 Private MD: ED Physician Russell Rodriguez HPI: 05/02 18:44 This 49 yrs old Female presents to ER via Unassigned with complaints of chest wall pain.sb4 18:44 patient states she rolled over onto her chest this morning, but smashed into her fist. sb4 is complaining of pain in her sternum/left ribs. denies any shortness of breath or hemoptysis. FUNDER: 18:45 LMP N/A - Post-menopause, Not me1 Historical: - Allergies: 18:45 Aspirin; me1 18:45 CRANBERRY; me1 18:45 FISH PRODUCT DERIVATIVES; me1 18:45 GRAPEFRUIT; me1 18:45 mushroom; me1 18:45 SHELLFISH; me1 - PMHx: 18:45 Cerebrovascular accident; Chronic obstructive lung disease; Hypertensive disorder; Left me1 sided paralysis post CVA; Myocardial infarction; Seizure; - PSHx: 18:45 None; me1 - Immunization history:: Adult Immunizations up to date. - Infectious Disease History:: Denies. - Social history:: Smoking status: Patient reports the use of cigarette tobacco products, smokes one-half pack cigarettes per day. ROS: 18:44 Constitutional: Negative for fever, chills, and weight loss, sb4 18:44 Cardiovascular: Positive for chest pain, 18:44 All other systems are negative, Exam: 18:45 Constitutional: This is a well developed, well nourished patient who is awake, alert, sb4 and in no acute distress. Head/Face: Normocephalic, atraumatic. Eyes: Extra-ocular motions intact. Periorbital areas with no swelling, redness, or edema. ENT: Mucous membranes moist. Cardiovascular: Regular rate and rhythm with a normal S1 and S2. Respiratory: No increased work of breathing, no retractions or nasal flaring. Skin: Warm, dry with normal turgor. Normal color with no rashes, no lesions, and no evidence of cellulitis. MS/ Extremity: Pulses equal, no cyanosis. Neurovascular intact. Full, normal range of motion. 18:45 Chest/axilla: Inspection: normal, Palpation: tenderness, that is mild, of the left fourth intercostal space, left fifth intercostal space and sternum, that totally reproduces the patient's complaints, Vital Signs: 18:43 BP 142 / 79; Pulse 77; Resp 16; Temp 98.4; Pulse Ox 97% ; Weight 65.77 kg; Height 5 ft. me1 4 in. ; Pain 10/10; 19:00 BP 139 / 95; Pulse 79; Resp 17; Temp 98(O); Pulse Ox 99% ; ay 20:00 BP 132 / 92; Pulse 68; Resp 16; Pulse Ox 99% on R/A; ay 18:43 Body Mass Index 24.89 (65.77 kg, 162.56 cm) me1 18:43 Pain Scale: Adult me1 MDM: 18:42 Medical Screening Exam initiated sb4 19:37 Data reviewed: vital signs, nurses notes, EMS record, radiologic studies, and as a sb4 result, I will discharge patient. Counseling: I had a detailed discussion with the patient and/or guardian regarding the historical points, exam findings, and any diagnostic results supporting the discharge/admit diagnosis, radiology results, the need for outpatient follow up, for definitive care, to return to the emergency department if symptoms worsen or persist or if there are any questions or concerns that arise at home. 05/02 18:43 Order name: Chest Single View XRAY; Complete Time: 19:37 sb4 Administered Medications: 18:52 Drug: Acetaminophen PO 1000 mg PO once Route: PO; me1 20:39 Follow up: Response: No adverse reaction ay 18:52 Drug: Ibuprofen PO 800 mg PO once Route: PO; me1 20:38 Follow up: Response: No adverse reaction ay Disposition Summary: 05/02/24 19:38 Discharge Ordered Notes: Location: Home sb4 Problem: new sb4 Symptoms: have improved sb4 Condition: Stable sb4 Diagnosis - Chest wall pain, rib contusion sb4 Followup: sb4 - With: Private Physician - When: 1 week - Reason: Recheck today's complaints, Re-evaluation by your physician Discharge Instructions: - Discharge Summary Sheet sb4 - Rib Contusion sb4 Forms: - Patient Portal Instructions sb4 - Leadership Thank You Letter sb4 Signatures: Dispatcher [employer] EDMS Brown, Kalli, RENEA MEIER sb4 Nohemy Clark, RN RN me1 Sindy Obregon RN ay
--- NOTE | 2024-05-02 19:38 | ER ---
Nurse's Notes [facility] Name: Geetha Khan Age: 49 yrs Sex: Female : 1975 Arrival Date: 05/02/2024 Time: 18:41 Bed 14 Private MD: Diagnosis: Chest wall pain, rib contusion Presentation: 05/02 18:43 Chief complaint: EMS states: toned out for sternal pain. Patient reports she rolled me1 over this morning and her fist "dug into her sternum" and it still hurts. Pain 12/25. Coronavirus screen: Vaccine status: Patient reports being unvaccinated. Ebola Screen: No symptoms or risks identified at this time. Initial Sepsis Screen: Does the patient meet any 2 criteria? No. Patient's initial sepsis screen is negative. Does the patient have a suspected source of infection? No. Patient's initial sepsis screen is negative. Risk Assessment: Do you want to hurt yourself or someone else? Patient reports no desire to harm self or others. Onset of symptoms was May 02, 2024 at 10:30. 18:43 Method Of Arrival: EMS: [facility] 18:43 Acuity: CORRINA 4 me1 Triage Assessment: 18:45 General: Appears unkempt, well developed, well nourished, Behavior is calm, me1 cooperative, appropriate for age. Pain: Complains of pain in xiphoid area and mid-sternal area Pain does not radiate. Pain currently is 10 out of 10 on a pain scale. Quality of pain is described as aching, Pain began suddenly, Is continuous. EENT: No signs and/or symptoms were reported regarding the EENT system. Neuro: Level of Consciousness is awake, alert, obeys commands, Oriented to person, place, time, situation, Appropriate for age. Cardiovascular: Patient's skin is warm and dry. Respiratory: Airway is patent Respiratory effort is even, unlabored, Respiratory pattern is regular, symmetrical. GI: No signs and/or symptoms were reported involving the gastrointestinal system. : No signs and/or symptoms were reported regarding the genitourinary system. Derm: Skin is intact, is healthy with good turgor, Skin is pink, warm \\T\\ dry. Musculoskeletal: Reports pain in sternum. Injury Description: rolled over on her fist and it "dug into her sternum" causing pain. CIA AGENT: 18:45 LMP N/A - Post-menopause, Not me1 Historical: - Allergies: 18:45 Aspirin; me1 18:45 CRANBERRY; me1 18:45 FISH PRODUCT DERIVATIVES; me1 18:45 GRAPEFRUIT; me1 18:45 mushroom; me1 18:45 SHELLFISH; me1 - PMHx: 18:45 Cerebrovascular accident; Chronic obstructive lung disease; Hypertensive disorder; Left me1 sided paralysis post CVA; Myocardial infarction; Seizure; - PSHx: 18:45 None; me1 - Immunization history:: Adult Immunizations up to date. - Infectious Disease History:: Denies. - Social history:: Smoking status: Patient reports the use of cigarette tobacco products, smokes one-half pack cigarettes per day. Screenin:47 [facility] ED Fall Risk Assessment (Adult) History of falling in the last 3 months, wa1 including since admission No falls in past 3 months (0 pts) Confusion or Disorientation No (0 pts) Intoxicated or Sedated No (0 pts) Impaired Gait Yes (1 pt) Mobility Assist Device Used Yes (1 pt) Altered Elimination Yes (1 pt) Score/Fall Risk Level 0 - 2 = Low Risk Maintained a safe environment, Provided non-skid footwear, Hourly rounding (assess needs \\T\\ fall precautionary measures) done. Abuse screen: Denies threats or abuse. Nutritional screening: No deficits noted. Tuberculosis screening: No symptoms or risk factors identified. Assessment: 18:47 General: See triage assessment. wa1 19:09 General: Pt alert and oriented, no distress noted, VSS. ay Vital Signs: 18:43 BP 142 / 79; Pulse 77; Resp 16; Temp 98.4; Pulse Ox 97% ; Weight 65.77 kg; Height 5 ft. me1 4 in. ; Pain 10/10; 19:00 BP 139 / 95; Pulse 79; Resp 17; Temp 98(O); Pulse Ox 99% ; ay 20:00 BP 132 / 92; Pulse 68; Resp 16; Pulse Ox 99% on R/A; ay 18:43 Body Mass Index 24.89 (65.77 kg, 162.56 cm) [facility] 18:43 Pain Scale: Adult [facility] ED Course: 18:42 Patient arrived in ED. sb4 18:42 Kalli Bradshaw PA-C is PHCP. sb4 18:42 Russell Rodriguez MD is Attending Physician. sb4 18:43 Nohemy Clark, RN is Primary Nurse. me1 18:45 Triage completed. me1 18:45 Arm band placed on Patient placed in an exam room. me1 18:47 Patient has correct armband on for positive identification. Bed in low position. Call me1 light in reach. Side rails up X2. Provided Education on: POC. Verbalized understanding.. Client placed on continuous cardiac and pulse oximetry monitoring. NIBP monitoring applied. Pulse ox on. NIBP on. 18:47 No provider procedures requiring assistance completed. Patient did not have IV access me1 during this emergency room visit. 19:22 Chest Single View XRAY In Process Unspecified. EDMS Administered Medications: 18:52 Drug: Acetaminophen PO 1000 mg PO once Route: PO; me1 20:39 Follow up: Response: No adverse reaction ay 18:52 Drug: Ibuprofen PO 800 mg PO once Route: PO; me1 20:38 Follow up: Response: No adverse reaction ay Medication: 18:47 VIS not applicable for this client. me1 Outcome: 19:38 Discharge ordered by . sb4 20:00 Discharged to home via wheelchair, ay 20:00 Condition: stable 20:00 Discharge instructions given to patient, Instructed on discharge instructions, follow up and referral plans. Demonstrated understanding of instructions, follow-up care, 20:39 Patient left the ED. ay Signatures: Dispatcher [employer] EDNH Kalli Bradshaw PA-C PA-C sb4 Nohemy Clark, RN RN me1 Sindy Obregon RN RN ay
[2024-05-02 20:44] VITALS: TEMP 98; O2SAT 99
[2024-05-02 20:45] VITALS: BP 132/92
== END 2024-05-02 20:39 | disposition home or self-care (01) ==
LOC: ER 18:41
DX: S20.212A Contusion of left front wall of thorax, initial encounter (principal); F17.210 Nicotine dependence, cigarettes, uncomplicated
CPT/HCPCS: 71045; 99284

== ENCOUNTER 2024-05-03 21:00 | Emergency (ER) | payer OTHER ==
--- NOTE | 2024-05-03 22:25 | EDPHYS ---
Physician Documentation [facility] Name: Geetha Khan Age: 49 yrs Sex: Female : 1975 Arrival Date: 05/03/2024 Time: 21:00 Bed DX5 Private MD: ED Physician Michael Grimm HPI: 05/03 22:17 This 49 yrs old Female presents to ER via EMS with complaints of Medication juan diego Refill, Pt wants pain medication / her dr catalan refill. 22:17 The patient presents to the emergency department requesting refill(s) for: pain. juan diego [facility] COORDINATOR: 21:09 LMP N/A - Post-menopause, Not me1 Historical: - Allergies: 21:09 Aspirin; me1 21:09 CRANBERRY; me1 21:09 FISH PRODUCT DERIVATIVES; me1 21:09 GRAPEFRUIT; me1 21:09 mushroom; me1 21:09 SHELLFISH; me1 - PMHx: 21:09 Cerebrovascular accident; Chronic obstructive lung disease; Hypertensive disorder; Left me1 sided paralysis post CVA; Myocardial infarction; Seizure; - PSHx: 21:09 None; me1 - Immunization history:: Adult Immunizations up to date. - Infectious Disease History:: Denies. - Social history:: Smoking status: Patient reports the use of cigarette tobacco products, smokes one-half pack cigarettes per day. - Family history:: not pertinent. ROS: 22:17 Constitutional: Negative for fever, chills, and weight loss, Eyes: Negative for injury, juan diego pain, redness, and discharge, ENT: Negative for injury, pain, and discharge, Neck: Negative for injury, pain, and swelling, Cardiovascular: Negative for chest pain, palpitations, and edema, Respiratory: Negative for shortness of breath, cough, wheezing, and pleuritic chest pain, Abdomen/GI: Negative for abdominal pain, nausea, vomiting, diarrhea, and constipation, Back: Negative for injury and pain, : Negative for injury, bleeding, discharge, and swelling, Skin: Negative for injury, rash, and discoloration, Neuro: Negative for headache, weakness, numbness, tingling, and seizure, Psych: Negative for depression, anxiety, suicide ideation, homicidal ideation, and hallucinations, Allergy/Immunology: Negative for hives, rash, and allergies, Endocrine: Negative for neck swelling, polydipsia, polyuria, polyphagia, and marked weight changes, Hematologic/Lymphatic: Negative for swollen nodes, abnormal bleeding, and unusual bruising, 22:17 MS/extremity: Positive for decreased range of motion, pain, of the anterior aspect of left shoulder and posterior aspect of left shoulder, Exam: 22:17 Constitutional: This is a well developed, well nourished patient who is awake, alert, juan diego and in no acute distress. Head/Face: Normocephalic, atraumatic. Eyes: Pupils equal round and reactive to light, extra-ocular motions intact. Lids and lashes normal. Conjunctiva and sclera are non-icteric and not injected. Cornea within normal limits. Periorbital areas with no swelling, redness, or edema. ENT: Nares patent. No nasal discharge, no septal abnormalities noted. Tympanic membranes are normal and external auditory canals are clear. Oropharynx with no redness, swelling, or masses, exudates, or evidence of obstruction, uvula midline. Mucous membranes moist. Neck: Trachea midline, no thyromegaly or masses palpated, and no cervical lymphadenopathy. Supple, full range of motion without nuchal rigidity, or vertebral point tenderness. No Meningismus. Cardiovascular: Regular rate and rhythm with a normal S1 and S2. No gallops, murmurs, or rubs. Normal PMI, no JVD. No pulse deficits. Respiratory: Lungs have equal breath sounds bilaterally, clear to auscultation and percussion. No rales, rhonchi or wheezes noted. No increased work of breathing, no retractions or nasal flaring. Abdomen/GI: Soft, non-tender, with normal bowel sounds. No distension or tympany. No guarding or rebound. No evidence of tenderness throughout. Back: No spinal tenderness. No costovertebral tenderness. Full range of motion. Skin: Warm, dry with normal turgor. Normal color with no rashes, no lesions, and no evidence of cellulitis. MS/ Extremity: Pulses equal, no cyanosis. Neurovascular intact. Full, normal range of motion., bilateral aka Neuro: Awake and alert, GCS 15, oriented to person, place, time, and situation. Cranial nerves II-XII grossly intact. Motor strength 5/5 in all extremities. Sensory grossly intact. Cerebellar exam normal. Normal gait. Psych: Awake, alert, with orientation to person, place and time. Behavior, mood, and affect are within normal limits. 22:17 Chest/axilla: Inspection: normal, no acute changes, Palpation: no acute changes, Axilla: no acute changes, Breasts: are normal, Lymph nodes: supraclavicular nodes, 22:17 ECG was reviewed by the Attending Physician. Vital Signs: 21:07 BP 134 / 76; Pulse 69; Resp 16; Temp 98.4; Pulse Ox 100% ; Weight 65.77 kg; Height 5 me1 ft. 4 in. ; Pain 10/10; 23:05 BP 128 / 74; Pulse 64; Resp 16; Pulse Ox 99% ; vc1 21:07 Body Mass Index 24.89 (65.77 kg, 162.56 cm) me1 21:07 Pain Scale: Adult me1 MDM: 21:20 Medical Screening Exam initiated juan diego 22:20 Data reviewed: vital signs, nurses notes, EKG. Consideration of Admission/Observation juan diego Escalation of care including admission/observation considered. I considered the following discharge prescriptions or medication management in the emergency department Medications were administered in the Emergency Department. See MAR. Independent interpretation of the following test(s) in the Emergency Department EKG: See my EKG interpretation above. Historians other than the Patient: Spouse/Significant Other: spouse well informed. Care significantly affected by the following chronic conditions: Hypertension, Chronic Obstructive Pulmonary Disease, shoulder dislocation. Counseling: I had a detailed discussion with the patient and/or guardian regarding the historical points, exam findings, and any diagnostic results supporting the discharge/admit diagnosis, the need for outpatient follow up, for definitive care, a theoretical physics teacher, a orthopedic surgeon. 05/03 21:21 Order name: EKG - Nurse/Tech; Complete Time: 21:58 juan diego EC:17 Rate is 75 beats/min. Rhythm is regular. QRS [place] is Normal. NC interval is normal. QRS juan diego interval is normal. QT interval is normal. No Q waves. T waves are Normal. No ST changes noted. Clinical impression: NSR w/ Non-specific ST/T Changes, LVH, and No evidence of ischemia. Interpreted by me. Reviewed by me. Administered Medications: 23:02 Drug: Hydrocodone-Acetaminophen PO (7.5 mg-325 mg) 1 tabs PO once Route: PO; vc1 23:02 Follow up: Response: Medication administered at discharge. vc1 23:02 Drug: Ondansetron Oral Disintegrating Tablet Oral Disintegrating Tablet 4 mg PO once vc1 Route: PO; 23:02 Follow up: Response: Medication administered at discharge. vc1 Disposition Summary: 05/03/24 22:24 Discharge Ordered Notes: Location: Home juan diego Problem: new juan diego Symptoms: have improved juan diego Condition: Stable juan diego Diagnosis - Pain in left shoulder juan diego - Unspecified symptoms and signs involving the musculoskeletal system juan diego Followup: juan diego - With: Private Physician - When: 2 - 3 days - Reason: Recheck today's complaints, Continuance of care, Re-evaluation by your physician Followup: juan diego - With: Tad Vanegas MD - When: 2 - 3 days - Reason: Recheck today's complaints, Re-evaluation by your physician Followup: juan diego - With: Josse Olson MD - When: 2 - 3 days - Reason: Recheck today's complaints, Re-evaluation by your physician Discharge Instructions: - Discharge Summary Sheet juan diego - Chest Wall Pain juan diego - Musculoskeletal Pain juan diego - Shoulder Pain juan diego - How to Use Cold Therapy, [id number] juan diego - Shoulder Pain, [id number] juan diego - Joint Pain, [id number] juan diego Forms: - Medication Reconciliation Form juan diego - Antibiotic Education juan diego - Prescription Opioid Use juan diego - Patient Portal Instructions juan diego - Leadership Thank You Letter juan diego Signatures: Michael Grimm MD MD cha Calcote, Vanessa RN RN vc1 Nohemy Clark RN RN me1
--- NOTE | 2024-05-03 22:25 | ER ---
Nurse's Notes [facility] Name: Geetha Khan Age: 49 yrs Sex: Female : 1975 Arrival Date: 05/03/2024 Time: 21:00 Bed DX5 Private MD: Diagnosis: Pain in left shoulder;Unspecified symptoms and signs involving the musculoskeletal system Presentation: 05/03 21:07 Chief complaint: EMS states: toned out for chest pain. Patient wants a medication me1 refill on her pain meds. Coronavirus screen: Vaccine status: Patient reports being unvaccinated. Ebola Screen: No symptoms or risks identified at this time. Initial Sepsis Screen: Does the patient meet any 2 criteria? No. Patient's initial sepsis screen is negative. Does the patient have a suspected source of infection? No. Patient's initial sepsis screen is negative. Risk Assessment: Do you want to hurt yourself or someone else? Patient reports no desire to harm self or others. Onset of symptoms was May 03, 2024 at 20:00. 21:07 Method Of Arrival: EMS: [facility] mn1 21:07 Acuity: CORRINA 3 me1 Triage Assessment: 21:09 General: Appears unkempt, Behavior is cooperative, appropriate for age, anxious. Pain: me1 Complains of pain in chest Pain does not radiate. Pain currently is 10 out of 10 on a pain scale. Quality of pain is described as heavy, Pain began gradually, Is continuous. EENT: No signs and/or symptoms were reported regarding the EENT system. Neuro: Level of Consciousness is awake, alert, obeys commands, Oriented to person, place, time, situation, Appropriate for age. Cardiovascular: Patient's skin is warm and dry. Cardiovascular: Denies chest pain. Respiratory: Airway is patent Respiratory effort is even, unlabored, Respiratory pattern is regular, symmetrical. GI: No signs and/or symptoms were reported involving the gastrointestinal system. : No signs and/or symptoms were reported regarding the genitourinary system. Derm: Skin is intact, is healthy with good turgor, Skin is pink, warm \T\ dry. Musculoskeletal: Range of motion: limited in left shoulder, left elbow, left wrist, left hip, left knee and left ankle. 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 - Infectious Disease History:: Denies. - Social history:: Smoking status: Patient reports the use of cigarette tobacco products, smokes one-half pack cigarettes per day. - Family history:: not pertinent. Screenin:15 [facility] ED Fall Risk Assessment (Adult) History of falling in the last 3 months, vc1 including since admission Yes- fall prone (multiple falls) (3 pts) Confusion or Disorientation No (0 pts) Intoxicated or Sedated No (0 pts) Impaired Gait Yes (1 pt) Mobility Assist Device Used Yes (1 pt) Altered Elimination Yes (1 pt) Score/Fall Risk Level 3 or more points = High Risk Oriented to surroundings, Maintained a safe environment, Educated pt \T\ family on fall prevention, incl call for assistance when getting out of bed. Abuse screen: Denies threats or abuse. Nutritional screening: No deficits noted. Tuberculosis screening: No symptoms or risk factors identified. Assessment: 23:03 Reassessment: Patient appears in no apparent distress at this time. No changes from vc1 previously documented assessment. Patient and/or family updated on plan of care and expected duration. Pain level reassessed. Vital Signs: 21:07 BP 134 / 76; Pulse 69; Resp 16; Temp 98.4; Pulse Ox 100% ; Weight 65.77 kg; Height 5 me1 ft. 4 in. ; Pain 10/10; 23:05 BP 128 / 74; Pulse 64; Resp 16; Pulse Ox 99% ; vc1 21:07 Body Mass Index 24.89 (65.77 kg, 162.56 cm) me1 21:07 Pain Scale: Adult [facility] ED Course: 21:02 Patient arrived in ED. gm2 21:09 Triage completed. me1 21:09 Arm band placed on Patient placed in waiting room. me1 21:20 Michael Grimm MD is Attending Physician. [facility] 22:23 Tad Vanegas MD is Referral Physician. [facility] 22:24 Josse Olson MD is Referral Physician. [facility] 22:44 Nohemy Clark, RN is Primary Nurse. [facility] 23:03 No provider procedures requiring assistance completed. Patient did not have IV access vc1 during this emergency room visit. 23:04 Patient has correct armband on for positive identification. Seen in diagnostic area. vc1 Provided Education on: f/u with PCP. Administered Medications: 23:02 Drug: Hydrocodone-Acetaminophen PO (7.5 mg-325 mg) 1 tabs PO once Route: PO; vc1 23:02 Follow up: Response: Medication administered at discharge. vc1 23:02 Drug: Ondansetron Oral Disintegrating Tablet Oral Disintegrating Tablet 4 mg PO once vc1 Route: PO; 23:02 Follow up: Response: Medication administered at discharge. vc1 Medication: 23:04 VIS not applicable for this client. vc1 Outcome: 22:24 Discharge ordered by . [facility] 23:04 Discharged to home via wheelchair, 1 23:04 Condition: stable 23:04 Discharge instructions given to patient, Instructed on discharge instructions, follow up and referral plans. Demonstrated understanding of instructions, follow-up care, 23:05 Patient left the ED. vc1 Signatures: Michael Grimm MD MD cha Calcote, Vanessa, RN RN vc1 Nohemy Clark, RN RN mn1 Rossi Muhammad 2
[2024-05-03] MEDS ORDERED: HYDROCODONE/APAP 7.5/325 MG TAB ONE (22:59)
[2024-05-03] MEDS ORDERED: ONDANSETRON 4 MG (ODT) TAB ONE (22:59)
[2024-05-03 23:11] VITALS: TEMP 98.4
[2024-05-03 23:12] VITALS: BP 128/74; O2SAT 99
== END 2024-05-03 23:05 | disposition home or self-care (01) ==
LOC: ER 21:00
DX: R29.91 Unspecified symptoms and signs involving the musculoskeletal system (principal); F17.210 Nicotine dependence, cigarettes, uncomplicated
CPT/HCPCS: 93005; 99283; Q0162

== ENCOUNTER 2024-05-04 23:34 | Emergency (ER) | payer OTHER ==
[2024-05-04] MEDS ORDERED: KETOROLAC 10 MG TAB ONE (23:45)
[2024-05-04] MEDS ORDERED: DIAZEPAM 5 MG TABLET ONE (23:46)
[2024-05-04] MEDS ORDERED: PROMETHAZINE 25 MG TABLET ONE (23:46)
[2024-05-04] MEDS ORDERED: ACETAMINOPHEN 500 MG TAB ONE (23:46)
--- NOTE | 2024-05-04 23:56 | EDPHYS ---
Physician Documentation [facility] Name: Geetha Khan Age: 49 yrs Sex: Female : 1975 Arrival Date: 05/04/2024 Time: 23:34 Bed IW2 Private MD: ED Physician Uriel Cannon HPI: 05/04 23:39 This 49 yrs old Female presents to ER via Unassigned with complaints of Pain. sp4 05/05 05:30 49-year-old female presents with complaint of generalized pain. Recent visit for the sp4 same.. 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 - Infectious Disease History:: Denies. - Social history:: Smoking status: Patient/guardian denies using tobacco, Stopped _ months ago 1 Patient/guardian denies using. - Family history:: not pertinent. ROS: 05/05 05:30 Constitutional: Negative for fever, chills, and weight loss, positive for generalized sp4 pain. All other systems are negative, Exam: 05:30 Constitutional: Physically debilitated female with left-sided weakness from prior CVA. sp4 No new neurologic deficits reported. No acute distress. Patient presents with EMS Head/Face: Normocephalic, atraumatic. Eyes: Pupils equal round and reactive to light, extra-ocular motions intact. Lids and lashes normal. Conjunctiva and sclera are not injected. Cornea within normal limits. Periorbital areas with no swelling, redness, or edema. ENT: Nares patent. No nasal discharge, no septal abnormalities noted. Tympanic membranes are normal and external auditory canals are clear. Oropharynx with no redness, swelling, or masses, exudates, or evidence of obstruction, uvula midline. Mucous membranes moist. Neck: Trachea midline, no thyromegaly or masses palpated, and no cervical lymphadenopathy. Supple, full range of motion without nuchal rigidity, or vertebral point tenderness. Chest/axilla: Normal chest wall appearance and motion. Nontender with no deformity. No lesions are appreciated. Cardiovascular: Regular rate and rhythm with a normal S1 and S2. No gallops, murmurs, or rubs. Normal PMI, no JVD. No pulse deficits. Respiratory: Lungs have equal breath sounds bilaterally, clear to auscultation and percussion. No rales, rhonchi or wheezes noted. No increased work of breathing, no retractions or nasal flaring. Abdomen/GI: Soft, with normal bowel sounds. No distension or tympany. No guarding or rebound. No evidence of tenderness throughout. Back: No spinal tenderness. No costovertebral tenderness. Skin: Warm, dry with normal turgor. Normal color with no rashes, no lesions, and no evidence of cellulitis. MS/ Extremity: Pulses equal, no cyanosis. Positive for left-sided weakness from prior hemiparesis. Otherwise unchanged Neuro: Awake and alert, GCS 15, oriented to person, place, time, and situation. Cranial nerves II-XII grossly intact. Positive for left-sided hemiparesis from prior CVA unchanged Psych: Awake, alert, with orientation to person, place and time. Behavior, mood, and affect are within normal limits Vital Signs: 05/04 23:40 BP 141 / 98; Pulse 76; Resp 18; Temp 97.9; Pulse Ox 93% ; Weight 65.77 kg; Height 5 ft. bm8 2 in. ; Pain 10/10; 23:40 Body Mass Index 26.52 (65.77 kg, 157.48 cm) bm8 23:40 Pain Scale: Adult bm8 Mariluz Coma Score: 23:49 Eye Response: spontaneous(4). Motor Response: obeys commands(6). Verbal Response: bm8 oriented(5). Total: 15. MDM: 23:39 Medical Screening Exam initiated sp4 05/05 05:30 Differential diagnosis: contusion, abrasion, tendonitis. Data reviewed: vital signs, sp4 nurses notes, EMS record, old medical records. Consideration of Admission/Observation Escalation of care including admission/observation considered. ED course: The patient was given p.o. medications for pain and anxiety. Patient stable for discharge home.. Administered Medications: 05/04 23:49 Drug: Ketorolac PO 10 mg PO once Route: PO; 05/05 00:00 Follow up: Response: No adverse reaction 05/04 23:49 Drug: Acetaminophen PO 1000 mg PO once Route: PO; 8 05/05 00:00 Follow up: Response: No adverse reaction 8 05/04 23:49 Drug: Diazepam PO 5 mg PO once Route: PO; 8 05/05 00:00 Follow up: Response: No adverse reaction 05/04 23:49 Drug: Promethazine PO 25 mg PO once Route: PO; 8 05/05 00:00 Follow up: Response: No adverse reaction bm8 Disposition Summary: 05/04/24 23:54 Discharge Ordered Notes: Location: Home sp4 Problem: new sp4 Symptoms: have improved sp4 Condition: Stable sp4 Diagnosis - Acute exacerbation of chronic pain, acute anxiety attack, acute generalized pain sp4 Followup: sp4 - With: Private Physician - When: 7 - 10 days - Reason: Recheck today's complaints Discharge Instructions: - Discharge Summary Sheet sp4 - Chronic Pain, Adult sp4 Forms: - Patient Portal Instructions sp4 Prescriptions: - Valium 5 mg Oral tablet - take 1 tablet ORAL route once daily As needed PRN anxiety; 12 tablet; Refills: sp4 0, Product Selection Permitted Signatures: Uriel Cannon MD MD sp4 Rene Baca RN RN bm8
--- NOTE | 2024-05-04 23:56 | ER ---
Nurse's Notes [facility] Name: Geetha Khan Age: 49 yrs Sex: Female : 1975 Arrival Date: 05/04/2024 Time: 23:34 Bed IW2 Private MD: Diagnosis: Acute exacerbation of chronic pain, acute anxiety attack, acute generalized pain Presentation: 05/04 23:40 Chief complaint: Patient states: I have chest pain that started 2 hrs ago. Coronavirus bm8 screen: At this time, the client does not indicate any symptoms associated with coronavirus-19. Ebola Screen: Patient negative for fever greater than or equal to 101.5 degrees Fahrenheit, and additional compatible Ebola Virus Disease symptoms Patient denies exposure to infectious person. Patient denies travel to an Ebola-affected area in the 21 days before illness onset. No symptoms or risks identified at this time. Initial Sepsis Screen: Does the patient meet any 2 criteria? No. Patient's initial sepsis screen is negative. Does the patient have a suspected source of infection? No. Patient's initial sepsis screen is negative. Risk Assessment: Do you want to hurt yourself or someone else? Patient reports no desire to harm self or others. Onset of symptoms was May 04, 2024 at 21:00. 23:40 Method Of Arrival: EMS: [facility] bm8 23:40 Acuity: CORRINA 4 bm8 23:41 Chief complaint: pt eating cheetos and donuts while in triage. bm8 Triage Assessment: 23:41 General: Appears in no apparent distress. comfortable, Behavior is calm, cooperative, bm8 appropriate for age, eating cheetos and donuts during triage assessment.. Pain: Complains of pain in chest Pain currently is 10 out of 10 on a pain scale. EENT: No deficits noted. No signs and/or symptoms were reported regarding the EENT system. Neuro: Level of Consciousness is awake, alert, obeys commands, Oriented to person, place, time, situation, Appropriate for age Dental Manager are weak on left. Cardiovascular: Reports chest pain, Heart tones S1 S2 present Capillary refill < 3 seconds in bilateral fingers Patient's skin is warm and dry. Respiratory: Airway is patent Trachea midline Respiratory effort is even, unlabored, Respiratory pattern is regular, symmetrical, Breath sounds are clear bilaterally. GI: No signs and/or symptoms were reported involving the gastrointestinal system. : No signs and/or symptoms were reported regarding the genitourinary system. Derm: No signs and/or symptoms reported regarding the dermatologic system. Musculoskeletal: No signs and/or symptoms reported regarding the musculoskeletal system. 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 - Infectious Disease History:: Denies. - Social history:: Smoking status: Patient/guardian denies using tobacco, Stopped _ months ago 1 Patient/guardian denies using. - Family history:: not pertinent. Screenin:49 [facility] ED Fall Risk Assessment (Adult) History of falling in the last 3 months, bm8 including since admission No falls in past 3 months (0 pts) Confusion or Disorientation No (0 pts) Intoxicated or Sedated No (0 pts) Impaired Gait No (0 pts) Mobility Assist Device Used No (0 pt) Altered Elimination No (0 pt) Score/Fall Risk Level 0 - 2 = Low Risk Oriented to surroundings, Maintained a safe environment, Educated pt \T\ family on fall prevention, incl call for assistance when getting out of bed, Assessed \T\ reinforced patient's understanding of fall precautions, Hourly rounding (assess needs \T\ fall precautionary measures) done, Used ambulatory aids as needed (educated on \T\ assisted with), Used gait belt as appropriate. Abuse screen: Denies threats or abuse. Nutritional screening: No deficits noted. Tuberculosis screening: No symptoms or risk factors identified. Assessment: 23:49 Reassessment: see triage note. bm8 Vital Signs: 23:40 BP 141 / 98; Pulse 76; Resp 18; Temp 97.9; Pulse Ox 93% ; Weight 65.77 kg; Height 5 ft. bm8 2 in. ; Pain 10/10; 23:40 Body Mass Index 26.52 (65.77 kg, 157.48 cm) bm8 23:40 Pain Scale: Adult bm8 Mariluz Coma Score: 23:49 Eye Response: spontaneous(4). Motor Response: obeys commands(6). Verbal Response: bm8 oriented(5). Total: 15. ED Course: 23:36 Patient arrived in ED. jj6 23:38 Uriel Cannon MD is Attending Physician. sp4 23:41 Triage completed. bm8 23:41 Arm band placed on right wrist. bm8 23:49 Patient has correct armband on for positive identification. bm8 23:49 No provider procedures requiring assistance completed. Patient did not have IV access bm8 during this emergency room visit. 23:59 Provided Education on: post er care. bm8 Administered Medications: 23:49 Drug: Ketorolac PO 10 mg PO once Route: PO; bm8 05/05 00:00 Follow up: Response: No adverse reaction bm8 02 23:49 Drug: Acetaminophen PO 1000 mg PO once Route: PO; bm8 05/05 00:00 Follow up: Response: No adverse reaction 8 05/04 23:49 Drug: Diazepam PO 5 mg PO once Route: PO; bm8 05/05 00:00 Follow up: Response: No adverse reaction bm8 05/04 23:49 Drug: Promethazine PO 25 mg PO once Route: PO; bm8 05/05 00:00 Follow up: Response: No adverse reaction bm8 Medication: 05/04 23:49 VIS not applicable for this client. bm8 Outcome: 23:49 Discharged to 8 23:54 Discharge ordered by . sp4 23:58 Discharged to home via wheelchair, bm8 23:58 Condition: stable 23:58 Discharge instructions given to patient, Instructed on discharge instructions, follow up and referral plans. no drinking with medication, no driving heavy equipment, medication usage, safety practices, Demonstrated understanding of instructions, follow-up care, Prescriptions given X 23:59 Prescriptions given X 1, bm8 05/05 00:03 Patient left the ED. jb4 Signatures: Jaziel Storm, RN RN jb4 Bia Garcia jj6 Uriel Cannon MD MD sp4 Rene Baca RN RN 8
[2024-05-05 03:21] VITALS: BP 141/98; TEMP 97.9; O2SAT 93
== END 2024-05-05 00:03 | disposition home or self-care (01) ==
LOC: ER 23:34
DX: G89.29 Other chronic pain (principal); F41.0 Panic disorder [episodic paroxysmal anxiety]; I10 Essential (primary) hypertension; I25.2 Old myocardial infarction
CPT/HCPCS: 99283; Q0169

== ENCOUNTER 2024-05-05 19:37 | Emergency (ER) | payer OTHER ==
[2024-05-05] MEDS ORDERED: KETOROLAC 10 MG TAB ONE (20:40)
[2024-05-05] MEDS ORDERED: PROMETHAZINE 25 MG TABLET ONE (20:41)
[2024-05-05] MEDS ORDERED: ACETAMINOPHEN 500 MG TAB ONE (20:41)
--- NOTE | 2024-05-05 20:50 | EDPHYS ---
Physician Documentation [facility] Name: Geetha Khan Age: 49 yrs Sex: Female : 1975 Arrival Date: 05/05/2024 Time: 19:37 Bed 8 Private MD: ED Physician Uriel Cannon HPI: 05/05 20:11 This 49 yrs old Female presents to ER via EMS with complaints of Pain. sp4 05/06 20:31 49-year-old female presents with complaint of worsening generalized pain. 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 N/A - , Not aa10 Historical: - Allergies: 20:02 Aspirin; hb 20:02 CRANBERRY; hb 20:02 FISH PRODUCT DERIVATIVES; hb 20:02 GRAPEFRUIT; hb 20:02 mushroom; hb 20:02 SHELLFISH; hb - Home Meds: 20:49 amlodipine oral [Active]; atorvastatin oral [Active]; Carbamazepine Oral [Active]; aa10 clopidogrel 75 mg Oral tablet 1 tab daily [Active]; lisinopril Oral [Active]; Metoprolol Tartrate Oral [Active]; Nitrostat SL [Active]; quetiapine oral [Active]; - PMHx: 20:02 Hypertensive disorder; Myocardial infarction; Cerebrovascular accident; Left sided hb paralysis post CVA; Chronic obstructive lung disease; Seizure; - Immunization history:: Adult Immunizations up to date. - Infectious Disease History:: Denies. - Social history:: Smoking status: Patient reports the use of cigarette tobacco products. - Family history:: pertinent for. ROS: 05/06 20:45 Constitutional: Negative for fever, chills, and weight loss, sp4 All other systems are negative, Exam: 20:45 Constitutional: Patient is physically debilitated female with chronic left-sided sp4 hemiparesis. No acute distress Head/Face: Normocephalic, atraumatic. Eyes: Pupils equal round and reactive to light, extra-ocular motions intact. Lids and lashes normal. Conjunctiva and sclera are not injected. Cornea within normal limits. Periorbital areas with no swelling, redness, or edema. ENT: Nares patent. No nasal discharge, no septal abnormalities noted. Tympanic membranes are normal and external auditory canals are clear. Oropharynx with no redness, swelling, or masses, exudates, or evidence of obstruction, uvula midline. Mucous membranes moist. Neck: Trachea midline, no thyromegaly or masses palpated, and no cervical lymphadenopathy. Supple, full range of motion without nuchal rigidity, or vertebral point tenderness. Chest/axilla: Normal chest wall appearance and motion. Nontender with no deformity. No lesions are appreciated. Cardiovascular: Regular rate and rhythm with a normal S1 and S2. No gallops, murmurs, or rubs. Normal PMI, no JVD. No pulse deficits. Respiratory: Lungs have equal breath sounds bilaterally, clear to auscultation and percussion. No rales, rhonchi or wheezes noted. No increased work of breathing, no retractions or nasal flaring. Abdomen/GI: Soft, with normal bowel sounds. No distension or tympany. No guarding or rebound. No evidence of tenderness throughout. Back: No spinal tenderness. No costovertebral tenderness. Skin: Warm, dry with normal turgor. Normal color with no rashes, no lesions, and no evidence of cellulitis. MS/ Extremity: Pulses equal, no cyanosis. Chronic left-sided hemiparesis from prior CVA. Neuro: Awake and alert, GCS 15, oriented to person, place, time, and situation. Cranial nerves II-XII grossly chronic left-sided hemiparesis from prior CVA Psych: Awake, alert, with orientation to person, place and time. Behavior, mood, and affect are within normal limits Vital Signs: 05/05 20:01 BP 128 / 91; Pulse 66; Resp 16; Temp 97.9; Pulse Ox 100% on R/A; Weight 65.77 kg; hb Height 5 ft. 4 in. ; Pain 10/10; 20:56 BP 132 / 87; Pulse 94; Resp 20 S; Temp 98.6; Pulse Ox 100% on R/A; aa10 20:01 Body Mass Index 24.89 (65.77 kg, 162.56 cm) hb 20:01 Pain Scale: Adult hb Mariluz Coma Score: 05/06 20:45 Eye Response: spontaneous(4). Motor Response: obeys commands(6). Verbal Response: sp4 oriented(5). Total: 15. MDM: 05/05 20:12 Medical Screening Exam initiated sp4 05/06 20:45 Differential Diagnosis altered mental status, sepsis, flu, Anxiety. Data reviewed: sp4 vital signs, nurses notes. Data reviewed: EMS record, old medical records. ED course: Patient is stable for discharge home. Patient has obtained relief from her medications.. Administered Medications: 05/05 20:43 Drug: Ketorolac PO 10 mg PO once Route: PO; aa10 20:46 Follow up: Response: No adverse reaction; Marked relief of symptoms aa10 20:43 Drug: Promethazine PO 25 mg PO once Route: PO; aa10 20:46 Follow up: Response: No adverse reaction; Marked relief of symptoms aa10 20:43 Drug: Acetaminophen PO 1000 mg PO once Route: PO; aa10 20:45 Follow up: Response: No adverse reaction; Marked relief of symptoms aa10 Disposition: 05/06 20:49 Chart complete. sp4 Disposition Summary: 05/05/24 20:49 Discharge Ordered Notes: Location: Home sp4 Problem: new sp4 Symptoms: have improved sp4 Condition: Stable sp4 Diagnosis - Generalized anxiety disorder sp4 - Chronic generalized pain with acute exacerbation, acute anxiety attack sp4 Followup: sp4 - With: Private Physician - When: 7 - 10 days - Reason: Recheck today's complaints Discharge Instructions: - Discharge Summary Sheet sp4 - Managing Anxiety, Adult sp4 Forms: - Patient Portal Instructions sp4 Signatures: Kristin Barrera RN YANETH Uriel Cannon MD MD sp4 Robert Childs RN RN aa10
--- NOTE | 2024-05-05 20:50 | ER ---
Nurse's Notes [facility] Name: Geetha Khan Age: 49 yrs Sex: Female : 1975 Arrival Date: 05/05/2024 Time: 19:37 Bed 8 Private MD: Diagnosis: Generalized anxiety disorder;Chronic generalized pain with acute exacerbation, acute anxiety attack Presentation: 05/05 20:01 Chief complaint: Left sided chest pain that radiates to left arm x 1 hour. Coronavirus hb screen: At this time, the client does not indicate any symptoms associated with coronavirus-19. Ebola Screen: No symptoms or risks identified at this time. Initial Sepsis Screen: Does the patient meet any 2 criteria? No. Patient's initial sepsis screen is negative. Does the patient have a suspected source of infection? No. Patient's initial sepsis screen is negative. Risk Assessment: Do you want to hurt yourself or someone else? Patient reports no desire to harm self or others. Onset of symptoms was May 05, 2024. 20:01 Method Of Arrival: EMS: [facility] hb 20:01 Acuity: CORRINA 3 hb Triage Assessment: 20:03 General: Appears in no apparent distress. Behavior is calm, cooperative. Pain: Pain hb currently is 10 out of 10 on a pain scale. Noted to be Calm, eating chips while talking on phone. Neuro: Level of Consciousness is awake, alert, obeys commands, Oriented to person, place, time, situation. Cardiovascular: Patient's skin is warm and dry. Respiratory: Respiratory effort is even, unlabored, Respiratory pattern is regular, symmetrical. 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 N/A - , Not aa10 Historical: - Allergies: 20:02 Aspirin; hb 20:02 CRANBERRY; hb 20:02 FISH PRODUCT DERIVATIVES; hb 20:02 GRAPEFRUIT; hb 20:02 mushroom; hb 20:02 SHELLFISH; hb - Home Meds: 20:49 amlodipine oral [Active]; atorvastatin oral [Active]; Carbamazepine Oral [Active]; aa10 clopidogrel 75 mg Oral tablet 1 tab daily [Active]; lisinopril Oral [Active]; Metoprolol Tartrate Oral [Active]; Nitrostat SL [Active]; quetiapine oral [Active]; - PMHx: 20:02 Hypertensive disorder; Myocardial infarction; Cerebrovascular accident; Left sided hb paralysis post CVA; Chronic obstructive lung disease; Seizure; - Immunization history:: Adult Immunizations up to date. - Infectious Disease History:: Denies. - Social history:: Smoking status: Patient reports the use of cigarette tobacco products. - Family history:: pertinent for. Screenin:48 [facility] ED Fall Risk Assessment (Adult) History of falling in the last 3 months, aa10 including since admission No falls in past 3 months (0 pts) Confusion or Disorientation No (0 pts) Intoxicated or Sedated No (0 pts) Impaired Gait No (0 pts) Mobility Assist Device Used No (0 pt) Altered Elimination No (0 pt) Score/Fall Risk Level 0 - 2 = Low Risk Oriented to surroundings, Maintained a safe environment, Educated pt \T\ family on fall prevention, incl call for assistance when getting out of bed, Assessed \T\ reinforced patient's understanding of fall precautions, Provided non-skid footwear, Hourly rounding (assess needs \T\ fall precautionary measures) done. Abuse screen: Denies threats or abuse. Denies injuries from another. Nutritional screening: No deficits noted. Tuberculosis screening: No symptoms or risk factors identified. Assessment: 20:46 General: Appears in no apparent distress. comfortable. General: Behavior is calm, aa10 cooperative, appropriate for age, Smells of cigarette . Neuro: No deficits noted. 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 Cardiovascular: No deficits noted. Capillary refill < 3 seconds. Respiratory: No deficits noted. Airway is patent. 20:51 Reassessment: Patient appears in no apparent distress at this time. No changes from aa10 previously documented assessment. Patient and/or family updated on plan of care and expected duration. Pain level reassessed. Patient is alert, oriented x 3, equal unlabored respirations, skin warm/dry/pink. Vital Signs: 20:01 BP 128 / 91; Pulse 66; Resp 16; Temp 97.9; Pulse Ox 100% on R/A; Weight 65.77 kg; hb Height 5 ft. 4 in. ; Pain 10/10; 20:56 BP 132 / 87; Pulse 94; Resp 20 S; Temp 98.6; Pulse Ox 100% on R/A; aa10 20:01 Body Mass Index 24.89 (65.77 kg, 162.56 cm) hb 20:01 Pain Scale: Adult hb [place] Coma Score: 05/06 20:45 Eye Response: spontaneous(4). Motor Response: obeys commands(6). Verbal Response: sp4 oriented(5). Total: 15. ED Course: 05/05 19:38 Patient arrived in ED. im 20:02 Triage completed. hb 20:03 Arm band placed on. hb 20:11 Uriel Cannon MD is Attending Physician. sp4 20:48 No provider procedures requiring assistance completed. Patient did not have IV access aa10 during this emergency room visit. 20:49 Patient has correct armband on for positive identification. Allergy band placed. Fall aa10 risk band placed. Placed in gown. Bed in low position. Call light in reach. Side rails up X2. Provided Education on: on plan of care. Administered Medications: 20:43 Drug: Ketorolac PO 10 mg PO once Route: PO; aa10 20:46 Follow up: Response: No adverse reaction; Marked relief of symptoms aa10 20:43 Drug: Promethazine PO 25 mg PO once Route: PO; aa10 20:46 Follow up: Response: No adverse reaction; Marked relief of symptoms aa10 20:43 Drug: Acetaminophen PO 1000 mg PO once Route: PO; aa10 20:45 Follow up: Response: No adverse reaction; Marked relief of symptoms aa10 Medication: 20:48 VIS not applicable for this client. aa10 Outcome: 20:49 Discharge ordered by . sp4 20:56 Discharged to home ambulatory, aa10 20:56 Condition: good 20:56 Discharge instructions given to patient, Instructed on discharge instructions, Demonstrated understanding of instructions, 21:02 Patient left the ED. aa10 Signatures: Kristin Barrera RN YANETH Uriel Cannon MD MD sp4 Verna Jhaveri Robert Childs RN RN aa10
[2024-05-06 01:22] VITALS: O2SAT 100
[2024-05-06 01:23] VITALS: BP 132/87; TEMP 98.6
== END 2024-05-05 21:02 | disposition home or self-care (01) ==
LOC: ER 19:37
DX: F41.0 Panic disorder [episodic paroxysmal anxiety] (principal); F41.1 Generalized anxiety disorder; G89.29 Other chronic pain; I10 Essential (primary) hypertension; I25.2 Old myocardial infarction
CPT/HCPCS: Q0169

== ENCOUNTER 2024-05-06 20:23 | Emergency (ER) | payer OTHER ==
[2024-05-06] MEDS ORDERED: PROMETHAZINE 25 MG TABLET ONE (20:42)
[2024-05-06] MEDS ORDERED: KETOROLAC 10 MG TAB ONE (20:42)
[2024-05-06] MEDS ORDERED: ACETAMINOPHEN 500 MG TAB ONE (20:42)
--- NOTE | 2024-05-06 20:43 | ER ---
Nurse's Notes [facility] Name: Geetha Khan Age: 49 yrs Sex: Female : 1975 Arrival Date: 05/06/2024 Time: 20:23 Bed IW1 Private MD: Diagnosis: Chronic generalized pain, physical debility, history of CVA with left hemiparesis, acute moderate anxiety Presentation: 05/06 20:29 Chief complaint: Patient states: anxiety that is causing her chest to hurt. Coronavirus cp4 screen: Client denies travel out of the [place] in the last 14 days. At this time, the client does not indicate any symptoms associated with coronavirus-19. Ebola Screen: Patient negative for fever greater than or equal to 101.5 degrees Fahrenheit, and additional compatible Ebola Virus Disease symptoms Patient denies exposure to infectious person. Patient denies travel to an Ebola-affected area in the 21 days before illness onset. No symptoms or risks identified at this time. Initial Sepsis Screen: Does the patient meet any 2 criteria? No. Patient's initial sepsis screen is negative. Does the patient have a suspected source of infection? No. Patient's initial sepsis screen is negative. Risk Assessment: Do you want to hurt yourself or someone else? Patient reports no desire to harm self or others. Onset of symptoms was May 06, 2024. 20:29 Method Of Arrival: EMS: [facility] cp4 20:29 Acuity: CORRINA 4 cp4 Triage Assessment: 20:30 General: Appears in no apparent distress. comfortable, Behavior is calm, cooperative, cp4 appropriate for age. Pain: Complains of pain in chest Pain does not radiate. Pain currently is 10 out of 10 on a pain scale. 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 cp4 Historical: - Allergies: 20:30 Aspirin; cp4 20:30 CRANBERRY; cp4 20:30 FISH PRODUCT DERIVATIVES; cp4 20:30 GRAPEFRUIT; cp4 20:30 SHELLFISH; cp4 20:30 mushroom; cp4 - Home Meds: 20:30 amlodipine oral [Active]; atorvastatin oral [Active]; Carbamazepine Oral [Active]; cp4 clopidogrel 75 mg Oral tablet 1 tab daily [Active]; lisinopril Oral [Active]; Metoprolol Tartrate Oral [Active]; Nitrostat SL [Active]; quetiapine oral [Active]; - PMHx: 20:30 Cerebrovascular accident; Chronic obstructive lung disease; Hypertensive disorder; Left cp4 sided paralysis post CVA; Myocardial infarction; Seizure; - Immunization history:: Adult Immunizations up to date. - Infectious Disease History:: Denies. - Social history:: Smoking status: Patient/guardian denies using tobacco. - Family history:: not pertinent. Screenin:33 [facility] ED Fall Risk Assessment (Adult) History of falling in the last 3 months, cp4 including since admission No falls in past 3 months (0 pts) Confusion or Disorientation No (0 pts) Intoxicated or Sedated No (0 pts) Impaired Gait Yes (1 pt) Mobility Assist Device Used Yes (1 pt) Altered Elimination No (0 pt) Score/Fall Risk Level 0 - 2 = Low Risk Oriented to surroundings, Maintained a safe environment, Assessed \T\ reinforced patient's understanding of fall precautions, Hourly rounding (assess needs \T\ fall precautionary measures) done. Abuse screen: Denies threats or abuse. Denies injuries from another. Nutritional screening: No deficits noted. Tuberculosis screening: No symptoms or risk factors identified. Assessment: 20:33 Neuro: Level of Consciousness is awake, alert, obeys commands, Oriented to person, cp4 place, time, situation. Cardiovascular: Patient's skin is warm and dry. Respiratory: Airway is patent Respiratory effort is even, unlabored. GI: No signs and/or symptoms were reported involving the gastrointestinal system. : No signs and/or symptoms were reported regarding the genitourinary system. EENT: No signs and/or symptoms were reported regarding the EENT system. Derm: No signs and/or symptoms reported regarding the dermatologic system. Musculoskeletal: No signs and/or symptoms reported regarding the musculoskeletal system. Vital Signs: 20:29 BP 138 / 98; Pulse 88; Resp 18; Temp 97.4; Pulse Ox 100% ; Weight 65.77 kg; Height 5 cp4 ft. 4 in. ; Pain 10/10; 20:29 Body Mass Index 24.89 (65.77 kg, 162.56 cm) cp4 20:29 Pain Scale: Adult cp4 [place] Coma Score: 20:49 Eye Response: spontaneous(4). Motor Response: obeys commands(6). Verbal Response: sp4 oriented(5). Total: 15. ED Course: 20:24 Patient arrived in ED. jj6 20:29 Uriel Cannon MD is Attending Physician. sp4 20:30 Triage completed. cp4 20:30 Arm band placed on right wrist. Patient placed in waiting room. cp4 20:33 Patient has correct armband on for positive identification. Allergy band placed. cp4 20:33 No provider procedures requiring assistance completed. Patient did not have IV access cp4 during this emergency room visit. 20:50 Provided Education on: anxiety. cp4 Administered Medications: 20:46 Drug: Acetaminophen PO 1000 mg PO once Route: PO; cp4 20:51 Follow up: Response: No adverse reaction cp4 20:46 Drug: Ketorolac PO 10 mg PO once Route: PO; cp4 20:51 Follow up: Response: No adverse reaction cp4 20:46 Drug: Promethazine PO 25 mg PO once Route: PO; cp4 20:51 Follow up: Response: No adverse reaction cp4 Medication: 20:33 VIS not applicable for this client. cp4 Outcome: 20:43 Discharge ordered by . sp4 20:50 Discharged to home via wheelchair, cp4 20:50 Condition: stable 20:50 Discharge instructions given to patient, Instructed on discharge instructions, follow up and referral plans. Demonstrated understanding of instructions, follow-up care, 20:51 Patient left the ED. cp4 Signatures: Bia Garcia jjUriel Rivero MD MD sp4 Yasmeen Vasquez cp4
--- NOTE | 2024-05-06 20:43 | EDPHYS ---
Physician Documentation [facility] Name: Geetha Khan Age: 49 yrs Sex: Female : 1975 Arrival Date: 05/06/2024 Time: 20:23 Bed IW1 Private MD: ED Physician Uriel Cannon HPI: 05/06 20:29 This 49 yrs old Female presents to ER via Unassigned with complaints of Pain. 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 cp4 Historical: - Allergies: 20:30 Aspirin; cp4 20:30 CRANBERRY; cp4 20:30 FISH PRODUCT DERIVATIVES; cp4 20:30 GRAPEFRUIT; cp4 20:30 SHELLFISH; cp4 20:30 mushroom; cp4 - Home Meds: 20:30 amlodipine oral [Active]; atorvastatin oral [Active]; Carbamazepine Oral [Active]; cp4 clopidogrel 75 mg Oral tablet 1 tab daily [Active]; lisinopril Oral [Active]; Metoprolol Tartrate Oral [Active]; Nitrostat SL [Active]; quetiapine oral [Active]; - PMHx: 20:30 Cerebrovascular accident; Chronic obstructive lung disease; Hypertensive disorder; Left cp4 sided paralysis post CVA; Myocardial infarction; Seizure; - Immunization history:: Adult Immunizations up to date. - Infectious Disease History:: Denies. - Social history:: Smoking status: Patient/guardian denies using tobacco. - Family history:: not pertinent. ROS: 20:49 Constitutional: Negative for fever, chills, and weight loss, sp4 20:49 All other systems are negative, Exam: 20:49 Constitutional: Physically debilitated female, left-sided hemiparesis from prior CVA sp4 Head/Face: Normocephalic, atraumatic. Eyes: Pupils equal round and reactive to light, extra-ocular motions intact. Lids and lashes normal. Conjunctiva and sclera are not injected. Cornea within normal limits. Periorbital areas with no swelling, redness, or edema. ENT: Nares patent. No nasal discharge, no septal abnormalities noted. Tympanic membranes are normal and external auditory canals are clear. Oropharynx with no redness, swelling, or masses, exudates, or evidence of obstruction, uvula midline. Mucous membranes moist. Neck: Trachea midline, no thyromegaly or masses palpated, and no cervical lymphadenopathy. Supple, full range of motion without nuchal rigidity, or vertebral point tenderness. Chest/axilla: Normal chest wall appearance and motion. Nontender with no deformity. No lesions are appreciated. Cardiovascular: Regular rate and rhythm with a normal S1 and S2. No gallops, murmurs, or rubs. Normal PMI, no JVD. No pulse deficits. Respiratory: Lungs have equal breath sounds bilaterally, clear to auscultation and percussion. No rales, rhonchi or wheezes noted. No increased work of breathing, no retractions or nasal flaring. Abdomen/GI: Soft, with normal bowel sounds. No distension or tympany. No guarding or rebound. No evidence of tenderness throughout. Back: No spinal tenderness. No costovertebral tenderness. Skin: Warm, dry with normal turgor. Normal color with no rashes, no lesions, and no evidence of cellulitis. MS/ Extremity: Pulses equal, no cyanosis. Chronic left-sided hemiparesis Neuro: Awake and alert, GCS 15, oriented to person, place, time, and situation. Chronic left-sided hemiparesis Psych: Awake, alert, with orientation to person, place and time. Behavior, mood, and affect are within normal limits Vital Signs: 20:29 BP 138 / 98; Pulse 88; Resp 18; Temp 97.4; Pulse Ox 100% ; Weight 65.77 kg; Height 5 cp4 ft. 4 in. ; Pain 10/10; 20:29 Body Mass Index 24.89 (65.77 kg, 162.56 cm) cp4 20:29 Pain Scale: Adult cp4 Mcguffey Coma Score: 20:49 Eye Response: spontaneous(4). Motor Response: obeys commands(6). Verbal Response: sp4 oriented(5). Total: 15. MDM: 20:30 Medical Screening Exam initiated sp4 20:52 Differential Diagnosis altered mental status, sepsis, flu, Acute anxiety. Data sp4 reviewed: vital signs, nurses notes, EMS record, old medical records. ED course: Patient improved after medications. Stable for discharge home.. Administered Medications: 20:46 Drug: Acetaminophen PO 1000 mg PO once Route: PO; cp4 20:51 Follow up: Response: No adverse reaction cp4 20:46 Drug: Ketorolac PO 10 mg PO once Route: PO; cp4 20:51 Follow up: Response: No adverse reaction cp4 20:46 Drug: Promethazine PO 25 mg PO once Route: PO; cp4 20:51 Follow up: Response: No adverse reaction cp4 Disposition: 20:52 Chart complete. sp4 Disposition Summary: 05/06/24 20:43 Discharge Ordered Notes: Location: Home sp4 Problem: an ongoing problem sp4 Symptoms: have improved sp4 Condition: Stable sp4 Diagnosis - Chronic generalized pain, physical debility, history of CVA with left hemiparesis, sp4 acute moderate anxiety Followup: sp4 - With: Private Physician - When: 7 - 10 days - Reason: Recheck today's complaints Discharge Instructions: - Discharge Summary Sheet sp4 - Managing Anxiety, Adult sp4 Forms: - Patient Portal Instructions sp4 Signatures: Uriel Cannon MD MD sp4 Yasmeen Vasquez cp4
== END 2024-05-06 20:51 | disposition home or self-care (01) ==
LOC: ER 20:23
DX: G89.29 Other chronic pain (principal); I69.854 Hemiplegia and hemiparesis following other cerebrovascular disease affecting left non-dominant side; F41.9 Anxiety disorder, unspecified; R54 Age-related physical debility; I10 Essential (primary) hypertension; J44.9 Chronic obstructive pulmonary disease, unspecified
CPT/HCPCS: Q0169

== ENCOUNTER 2024-05-07 22:07 | Emergency (ER) | payer OTHER ==
[2024-05-08] MEDS ORDERED: DIAZEPAM 5 MG TABLET ONE (00:07)
[2024-05-08] MEDS ORDERED: KETOROLAC 30 MG/ML INJ ONE (00:07)
--- NOTE | 2024-05-08 00:14 | ER ---
Nurse's Notes [facility] Name: Geetha Khan Age: 49 yrs Sex: Female : 1975 Arrival Date: 05/07/2024 Time: 22:07 Bed 8 Private MD: Diagnosis: Chest pain, unspecified;Anxiety disorder, unspecified Presentation: 05/07 22:08 Chief complaint: EMS states: they were called to the patients home for chest pain and ap3 anxiety. Coronavirus screen: At this time, the client does not indicate any symptoms associated with coronavirus-19. Ebola Screen: No symptoms or risks identified at this time. Initial Sepsis Screen: Does the patient meet any 2 criteria? No. Patient's initial sepsis screen is negative. Does the patient have a suspected source of infection? No. Patient's initial sepsis screen is negative. Risk Assessment: Do you want to hurt yourself or someone else? Patient reports no desire to harm self or others. Onset of symptoms was May 07, 2024. 22:08 Method Of Arrival: EMS: [facility] ap3 22:08 Acuity: CORRINA 3 ap3 Triage Assessment: 22:10 General: Appears in no apparent distress. Behavior is calm, cooperative, appropriate ap3 for age. Pain: Complains of pain in chest Pain currently is 10 out of 10 on a pain scale. Neuro: Level of Consciousness is awake, alert, obeys commands, Oriented to person, place, time, situation. Cardiovascular: Patient's skin is warm and dry. Cardiovascular: Reports chest pain. Respiratory: Airway is patent Respiratory effort is even, unlabored, Respiratory pattern is regular, symmetrical. 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 - Infectious Disease History:: Denies. - Social history:: Smoking status: Patient reports the use of cigarette tobacco products. - Family history:: not pertinent. Screenin:10 Abuse screen: Denies threats or abuse. Nutritional screening: No deficits noted. ap3 Tuberculosis screening: No symptoms or risk factors identified. 05/08 00:02 [facility] ED Fall Risk Assessment (Adult) History of falling in the last 3 months, al5 including since admission No falls in past 3 months (0 pts) Confusion or Disorientation No (0 pts) Intoxicated or Sedated No (0 pts) Impaired Gait Yes (1 pt) Mobility Assist Device Used Yes (1 pt) Altered Elimination Yes (1 pt) Score/Fall Risk Level 3 or more points = High Risk Oriented to surroundings, Maintained a safe environment, Hourly rounding (assess needs \T\ fall precautionary measures) done, Used ambulatory aids as needed (educated on \T\ assisted with). Assessment: 00:01 General: Appears in no apparent distress. comfortable, Behavior is calm, cooperative. al5 Pain: Complains of pain in chest. Neuro: Level of Consciousness is awake, alert, obeys commands, Oriented to person, place, time, situation. Cardiovascular: Reports chest pain, Capillary refill < 3 seconds Patient's skin is warm and dry. Respiratory: Airway is patent Respiratory effort is even, unlabored, Respiratory pattern is regular, symmetrical. GI: No signs and/or symptoms were reported involving the gastrointestinal system. : No signs and/or symptoms were reported regarding the genitourinary system. EENT: No signs and/or symptoms were reported regarding the EENT system. Derm: Skin is intact, is healthy with good turgor, Skin is pink, warm \T\ dry. normal. Musculoskeletal: No signs and/or symptoms reported regarding the musculoskeletal system. patient L sided deficits due to previous stroke. Vital Signs: 05/07 22:08 BP 122 / 94; Pulse 86; Resp 18; Temp 98.7; Pulse Ox 99% on R/A; Weight 65.77 kg; Height ap3 5 ft. 4 in. ; Pain 12/25; 05/08 00:13 BP 144 / 96; Pulse 80; Resp 16; Pulse Ox 97% on R/A; al5 00:44 BP 136 / 90; Pulse 74; Resp 15; Pulse Ox 98% on R/A; al5 05/07 22:08 Body Mass Index 24.89 (65.77 kg, 162.56 cm) ap3 05/07 22:08 Pain Scale: Adult ap3 ED Course: 05/07 22:08 Patient arrived in ED. ap3 22:09 Triage completed. ap3 22:11 Michael Nguyen PA is PHCP. cp 22:11 Uriel Cannon MD is Attending Physician. cp 23:59 Anayeli Otero, RN is Primary Nurse. al5 05/08 00:01 Arm band placed on right wrist. Patient placed in the treatment room, on a stretcher, al5 on pulse oximetry. 00:02 Patient has correct armband on for positive identification. Bed in low position. Call al5 light in reach. Side rails up X2. Provided Education on: plan of care. 00:02 No provider procedures requiring assistance completed. al5 00:45 Patient did not have IV access during this emergency room visit. al5 Administered Medications: 00:25 Drug: Diazepam PO 5 mg PO once Route: PO; br2 00:44 Follow up: Response: No adverse reaction al5 00:25 Drug: Ketorolac IM 15 mg IM once Route: IM; Site: right gluteus; br2 00:44 Follow up: Response: No adverse reaction al5 Medication: 00:02 VIS not applicable for this client. al5 Outcome: 00:13 Discharge ordered by . cp 00:45 Discharged to home via wheelchair, with significant other, al5 00:45 Condition: good 00:45 Discharge instructions given to patient, significant other, Instructed on discharge instructions, follow up and referral plans. Demonstrated understanding of instructions, follow-up care, 00:45 Patient left the ED. al5 Signatures: Michael Nguyen PA PA cp Prokisch, Amanda, RN RN ap3 Uriel Cannon MD MD sp4 Anayeli Otero RN RN al5 Destiney Moura RN RN br2
--- NOTE | 2024-05-08 00:14 | EDPHYS ---
Physician Documentation [facility] Name: Geetha Khan Age: 49 yrs Sex: Female : 1975 Arrival Date: 05/07/2024 Time: 22:07 Bed 8 Private MD: ED Physician Uriel Cannon HPI: 05/07 22:20 This 49 yrs old Female presents to ER via EMS with complaints of Chest Pain. cp 22:20 The patient or guardian reports chest pain that is located primarily in the anterior cp chest wall. Onset: today. 22:20 Associated signs and symptoms: Pertinent positives: anxiety. cp 22:20 The patient has experienced similar episodes in the past, chronically. cp RETRIMMER: 05/08 00:03 Not al5 Historical: - Allergies: 05/07 22:09 Aspirin; ap3 22:09 CRANBERRY; ap3 22:09 FISH PRODUCT DERIVATIVES; ap3 22:09 GRAPEFRUIT; ap3 22:09 mushroom; ap3 22:09 SHELLFISH; ap3 - PMHx: 22:09 Cerebrovascular accident; Chronic obstructive lung disease; Hypertensive disorder; Left ap3 sided paralysis post CVA; Myocardial infarction; Seizure; - Immunization history:: Client reports receiving the 2nd dose of the Covid vaccine. - Infectious Disease History:: Denies. - Social history:: Smoking status: Patient reports the use of cigarette tobacco products. - Family history:: not pertinent. ROS: 22:25 Cardiovascular: Positive for chest pain, cp 22:25 Psych: Positive for anxiety, cp 22:25 Constitutional: Negative for fever, chills, and weight loss, cp 22:25 Respiratory: Negative for cough, shortness of breath, wheezing, cp 22:25 Abdomen/GI: Negative for abdominal pain, vomiting, diarrhea, constipation, 22:25 Back: Negative for pain at rest, pain with movement, 22:25 Neuro: Negative for altered mental status, dizziness, headache, weakness, 22:25 All other systems are negative, Exam: 22:30 Constitutional: The patient appears in no acute distress, alert, awake, cp non-diaphoretic, non-toxic, well developed, well nourished, 22:30 Head/Face: Normocephalic, atraumatic. cp 22:30 Eyes: Periorbital structures: appear normal, Conjunctiva: normal, no exudate, no injection, Sclera: no appreciated abnormality, Lids and lashes: appear normal, bilaterally, 22:30 ENT: External ear(s): are unremarkable, Nose: is normal, Mouth: Lips: moist, Oral mucosa: moist, 22:30 Chest/axilla: Inspection: normal, Palpation: is normal, no crepitus, no tenderness, 22:30 Cardiovascular: Rate: normal, Rhythm: regular, 22:30 Respiratory: the patient does not display signs of respiratory distress, Respirations: normal, no use of accessory muscles, no retractions, labored breathing, is not present, Breath sounds: are clear throughout, no decreased breath sounds, no stridor, no wheezing, 22:30 Abdomen/GI: Inspection: abdomen appears normal, Palpation: abdomen is soft and non-tender, in all quadrants, 22:30 Neuro: Orientation: no acute changes, Mentation: no acute changes, Motor: no acute changes, Sensation: no acute changes, 05/08 00:17 ECG was reviewed by the Attending Physician. Vital Signs: 05/07 22:08 BP 122 / 94; Pulse 86; Resp 18; Temp 98.7; Pulse Ox 99% on R/A; Weight 65.77 kg; Height ap3 5 ft. 4 in. ; Pain 10/10; 05/08 00:13 BP 144 / 96; Pulse 80; Resp 16; Pulse Ox 97% on R/A; al5 00:44 BP 136 / 90; Pulse 74; Resp 15; Pulse Ox 98% on R/A; al5 05/07 22:08 Body Mass Index 24.89 (65.77 kg, 162.56 cm) ap3 05/07 22:08 Pain Scale: Adult ap3 MDM: 05/07 22:12 Medical Screening Exam initiated cp 05/08 00:12 Data reviewed: vital signs, nurses notes, EKG, and as a result, I will discharge cp patient. 00:12 Differential diagnosis: acute myocardial infarction, acute pericarditis, pleurisy, cp pneumonia, pneumothorax, stable angina, unstable angina. I considered the following discharge prescriptions or medication management in the emergency department Medications were administered in the Emergency Department. See MAR. Independent interpretation of the following test(s) in the Emergency Department EKG: See my EKG interpretation above. Counseling: I had a detailed discussion with the patient and/or guardian regarding the historical points, exam findings, and any diagnostic results supporting the discharge/admit diagnosis, to return to the emergency department if symptoms worsen or persist or if there are any questions or concerns that arise at home. Response to treatment: the patient's symptoms have mildly improved after treatment, and as a result, I will discharge patient. Special discussion: Based on the patient's history, exam, and Dx evaluation, there is no indication for emergent intervention or inpatient Tx. It is understood by the patient/guardian that if the Sx's persist or worsen they need to return immediately for re-evaluation. 05/07 22:13 Order name: EKG; Complete Time: 22: cp 05/07 22: Order name: EKG - Nurse/Tech; Complete Time: : cp EC:17 Rate is 75 beats/min. Rhythm is regular. ID interval is normal. QRS interval is normal. cp QT interval is normal. T waves are Inverted in leads I, II, aVL, V4, V5, V6. Clinical impression: Abnormal EKG without significant change. Interpreted by me. Reviewed by me. Administered Medications: 00:25 Drug: Diazepam PO 5 mg PO once Route: PO; br2 00:44 Follow up: Response: No adverse reaction al5 00:25 Drug: Ketorolac IM 15 mg IM once Route: IM; Site: right gluteus; br2 00:44 Follow up: Response: No adverse reaction al5 Disposition: 20:19 Co-signature as Attending Physician, Uriel Cannon MD I agree with the assessment sp4 and plan of care. I reviewed the patient's care provided by Advanced Practice Provider \T\ agree w/ the diagnosis \T\ care plan. I personally saw the pt \T\ performed a substantive portion of the visit, incldng all aspects of the (History/Exam/Medical Decision Making). Disposition Summary: 05/08/24 00:13 Discharge Ordered Notes: Location: Home cp Problem: an ongoing problem cp Symptoms: have improved cp Condition: Stable cp Diagnosis - Chest pain, unspecified cp - Anxiety disorder, unspecified cp Followup: cp - With: Private Physician - When: 1 - 2 days - Reason: Recheck today's complaints Discharge Instructions: - Discharge Summary Sheet cp - Nonspecific Chest Pain, Adult cp - Managing Anxiety, Adult cp Forms: - Medication Reconciliation Form cp - Antibiotic Education cp - Prescription Opioid Use cp - Patient Portal Instructions cp - Leadership Thank You Letter cp Signatures: Michael Nguyen PA PA cp Anayeli Chandra RN RN ap3 Uriel Cannon MD MD sp4 Destiney Moura RN RN br2 Anayeli Otero RN al5 Corrections: (The following items were deleted from the chart) 05/09 00:17 05/08 20:18 Constitutional: Negative for fever, chills, and weight loss, sp4 cp
[2024-05-08 23:10] VITALS: TEMP 98.7
[2024-05-08 23:14] VITALS: BP 136/90; O2SAT 98
--- NOTE | 2024-05-11 12:14 | EKG ---
Test Date: 2024-05-08 Test Time: 00:10:24 Cryptologic Support Specialist: LISS MEASUREMENT RESULTS: Intervals: Rate: 75 VA: 180 QRSD: 80 QT: 406 QTc: 453 [place]: P: 49 VA: 180 QRS: 9 T: 163 INTERPRETIVE STATEMENTS: Normal sinus rhythm Left ventricular hypertrophy with repolarization abnormality Abnormal ECG Compared to ECG 05/03/2024 21:54:18 Atrial abnormality no longer present Electronically Signed On 05-11-24 12:11:21 CORPORATE COMPLIANCE MANAGER by Alan Garay
== END 2024-05-08 00:45 | disposition home or self-care (01) ==
LOC: ER 22:07
DX: R07.89 Other chest pain (principal); F41.9 Anxiety disorder, unspecified; Z72.0 Tobacco use
CPT/HCPCS: 93005; 96372; 99284

== ENCOUNTER 2024-05-08 19:46 | Emergency (ER) | payer OTHER ==
--- NOTE | 2024-05-08 22:06 | ER ---
Nurse's Notes [facility] Name: Geetha Khan Age: 49 yrs Sex: Female : 1975 Arrival Date: 05/08/2024 Time: 19:46 Bed 9 Private MD: Diagnosis: Chronic chest pain Presentation: 05/08 19:51 Chief complaint: Patient states: she is having pain in her sternal area, and having ap3 anxiety. patient states "the shot i got in my butt helped a lot last night and my can't leave work to get my medicine yall gave me.". Coronavirus screen: At this time, the client does not indicate any symptoms associated with coronavirus-19. Ebola Screen: No symptoms or risks identified at this time. Initial Sepsis Screen: Does the patient meet any 2 criteria? No. Patient's initial sepsis screen is negative. Does the patient have a suspected source of infection? No. Patient's initial sepsis screen is negative. Risk Assessment: Do you want to hurt yourself or someone else? Patient reports no desire to harm self or others. Onset of symptoms was May 01, 2024. 19:51 Method Of Arrival: EMS: [facility] ap3 19:51 Acuity: CORRINA 3 ap3 Triage Assessment: 19:53 General: Appears in no apparent distress. Behavior is calm, cooperative. Pain: ap3 Complains of pain in buttocks Pain currently is 10 out of 10 on a pain scale. Neuro: Level of Consciousness is awake, alert, obeys commands, Oriented to person, place, time, situation. Cardiovascular: Patient's skin is warm and dry. Respiratory: Airway is patent Respiratory effort is even, unlabored, Respiratory pattern is regular, symmetrical. 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 - Infectious Disease History:: Denies. - Social history:: Smoking status: Patient reports the use of cigarette tobacco products, smokes one-half pack cigarettes per day. - Family history:: not pertinent. Screenin:54 Abuse screen: Denies threats or abuse. Nutritional screening: No deficits noted. ap3 Tuberculosis screening: No symptoms or risk factors identified. 21:19 [facility] ED Fall Risk Assessment (Adult) History of falling in the last 3 months, me1 including since admission No falls in past 3 months (0 pts) Confusion or Disorientation No (0 pts) Intoxicated or Sedated No (0 pts) Impaired Gait No (0 pts) Mobility Assist Device Used No (0 pt) Altered Elimination No (0 pt) Score/Fall Risk Level 0 - 2 = Low Risk Maintained a safe environment, Provided non-skid footwear, Hourly rounding (assess needs \\T\\ fall precautionary measures) done. Assessment: 21:19 General: Appears in no apparent distress. unkempt, well developed, Behavior is me1 cooperative, appropriate for age, anxious, Reports she is having pain in her sternal area, and having anxiety. patient states "the shot i got in my butt helped a lot last night and my can't leave work to get my medicine yall gave me.". Pain: Complains of pain in chest Pain does not radiate. Pain currently is 10 out of 10 on a pain scale. Quality of pain is described as heavy, Pain began suddenly, Is continuous. Neuro: Level of Consciousness is awake, alert, obeys commands, Oriented to person, place, time, situation, Appropriate for age. Cardiovascular: Patient's skin is warm and dry. Cardiovascular: Reports chest pain. Respiratory: Airway is patent Respiratory effort is even, unlabored, Respiratory pattern is regular, symmetrical. GI: No signs and/or symptoms were reported involving the gastrointestinal system. : No signs and/or symptoms were reported regarding the genitourinary system. EENT: No signs and/or symptoms were reported regarding the EENT system. Derm: Skin is intact, is healthy with good turgor, Skin is pink, warm \\T\\ dry. Musculoskeletal: Range of motion: limited in left shoulder, left elbow, left wrist, left hip, left knee and left ankle. Vital Signs: 19:51 BP 135 / 95; Pulse 80; Resp 18; Temp 97.8; Pulse Ox 100% ; Weight 65.77 kg; Height 5 ap3 ft. 4 in. ; Pain 10/10; 22:21 BP 128 / 91; Pulse 79; Resp 17; Temp 98.1; Pulse Ox 100% ; me1 19:51 Body Mass Index 24.89 (65.77 kg, 162.56 cm) ap3 19:51 Pain Scale: Adult ap3 ED Course: 19:49 Patient arrived in ED. gm2 19:53 Triage completed. ap3 19:54 Arm band placed on right wrist. ap3 20:09 Kye De Anda MD is Attending Physician. rt 21:19 Nohemy Clark, RN is Primary Nurse. me1 21:19 Patient has correct armband on for positive identification. Bed in low position. Call me1 light in reach. Side rails up X 1. Provided Education on: POC. Verbalized understanding.. Client placed on continuous cardiac and pulse oximetry monitoring. NIBP monitoring applied. personnel monitor on. Pulse ox on. NIBP on. 21:19 No provider procedures requiring assistance completed. me1 21:37 Troponin High Sensitivity Sent. me1 21:37 Initial lab(s) drawn, by me, sent to lab. EKG done, by ED staff, reviewed by Kye De Anda MD. 22:21 Patient did not have IV access during this emergency room visit. me1 Administered Medications: No medications were administered Medication: 21:19 VIS not applicable for this client. me1 Outcome: 22:05 Discharge ordered by . rt 22:21 Discharged to home via wheelchair, with family, me1 22:21 Condition: stable 22:21 Discharge instructions given to patient, Instructed on discharge instructions, follow up and referral plans. Demonstrated understanding of instructions, follow-up care, 22:21 Patient left the ED. me1 Signatures: Anayeli Chandra RN RN ap3 Kye De Anda MD MD rt Nohemy Clark, RN RN me1 Rossi Muhammad gm2 Corrections: (The following items were deleted from the chart) 21:19 19:51 Chief complaint: Patient states: she is having pain in her sternal area, and me1 having anxiety. patient states "the shot i got in my butt helped a lot last night and my can't leave work to get my medicine yall gave me." ap3
--- NOTE | 2024-05-08 22:06 | EDPHYS ---
Physician Documentation [facility] Name: Geetha Khan Age: 49 yrs Sex: Female : 1975 Arrival Date: 05/08/2024 Time: 19:46 Bed 9 Private MD: ED Physician Kye De Anda HPI: 05/08 22:51 This 49 yrs old Female presents to ER via EMS with complaints of Medication refill. Her rt dr will not give her anymore pain meds. 22:51 Patient with history of chronic chest pain presents to the ED with persistence of her rt chronic chest pain, states that his like her typical pain. Denies other symptoms, other acute complaints, symptoms are moderate in severity, no other aggravating alleviating factors.. 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 - Infectious Disease History:: Denies. - Social history:: Smoking status: Patient reports the use of cigarette tobacco products, smokes one-half pack cigarettes per day. - Family history:: not pertinent. ROS: 22:51 Constitutional: Negative for fever, chills, and weight loss, Respiratory: Negative for rt shortness of breath, cough, wheezing, and pleuritic chest pain, Abdomen/GI: Negative for abdominal pain, nausea, vomiting, diarrhea, and constipation, MS/Extremity: Negative for injury and deformity, Skin: Negative for injury, rash, and discoloration, Neuro: Negative for headache, weakness, numbness, tingling, and seizure, 22:51 Cardiovascular: Positive for chest pain, Negative for edema, Exam: 22:51 Constitutional: This is a well developed, well nourished patient who is awake, alert, rt and in no acute distress. Chest/axilla: Normal chest wall appearance and motion. Nontender with no deformity. No lesions are appreciated. Cardiovascular: Regular rate and rhythm with a normal S1 and S2. No gallops, murmurs, or rubs. Normal PMI, no JVD. No pulse deficits. Respiratory: Lungs have equal breath sounds bilaterally, clear to auscultation and percussion. No rales, rhonchi or wheezes noted. No increased work of breathing, no retractions or nasal flaring. Abdomen/GI: Soft, non-tender, with normal bowel sounds. No distension or tympany. No guarding or rebound. No evidence of tenderness throughout. Skin: Warm, dry with normal turgor. Normal color with no rashes, no lesions, and no evidence of cellulitis. MS/ Extremity: Pulses equal, no cyanosis. Neurovascular intact. Full, normal range of motion. Neuro: Awake and alert, GCS 15, oriented to person, place, time, and situation. Cranial nerves II-XII grossly intact. Motor strength 5/5 in all extremities. Sensory grossly intact. Cerebellar exam normal. Normal gait. 22:51 ECG was reviewed by the Attending Physician. rt Vital Signs: 19:51 BP 135 / 95; Pulse 80; Resp 18; Temp 97.8; Pulse Ox 100% ; Weight 65.77 kg; Height 5 ap3 ft. 4 in. ; Pain 10/10; 22:21 BP 128 / 91; Pulse 79; Resp 17; Temp 98.1; Pulse Ox 100% ; me1 19:51 Body Mass Index 24.89 (65.77 kg, 162.56 cm) ap3 19:51 Pain Scale: Adult ap3 MDM: 21:17 Medical Screening Exam initiated rt 22:54 Differential Diagnosis Chronic chest pain, ACS. Data reviewed: vital signs, nurses rt notes, lab test result(s), EKG. Consideration of Admission/Observation Escalation of care including admission/observation considered. Patient with frequent visits for chest pain with negative workups, with negative troponin, EKG is unchanged, do not believe that she requires admission at this time. Independent interpretation of the following test(s) in the Emergency Department X-Ray: My interpretation is Symptoms consistent with chronic chest pain, do not believe that x-rays needed at this time.. Counseling: I had a detailed discussion with the patient and/or guardian regarding the historical points, exam findings, and any diagnostic results supporting the discharge/admit diagnosis, lab results, the need for outpatient follow up. 02/21 20:10 Order name: Troponin High Sensitivity; Complete Time: 22:00 rt 05/08 20:10 Order name: EKG - Nurse/Tech; Complete Time: 21:37 rt EC:51 Rate is 77 beats/min. Rhythm is regular, Normal Sinus Rhythm with No ectopy, LVH rt present. QRS Leopold is Normal. IL interval is normal. QRS interval is normal. QT interval is normal. No Q waves. No ST changes noted. Interpreted by me. Administered Medications: No medications were administered Disposition Summary: 05/08/24 22:05 Discharge Ordered Notes: Location: Home rt Problem: chronic rt Symptoms: are unchanged rt Condition: Stable rt Diagnosis - Chronic chest pain rt Followup: rt - With: Private Physician - When: 2 - 3 days - Reason: Discharge Instructions: - Discharge Summary Sheet rt - Nonspecific Chest Pain, Adult rt Forms: - Medication Reconciliation Form rt - Antibiotic Education rt - Prescription Opioid Use rt - Patient Portal Instructions rt - Leadership Thank You Letter rt Signatures: Dispatcher [employer] Anayeli James RN RN ap3 yKe De Anda MD MD rt Corrections: (The following items were deleted from the chart) 20:10 20:10 Troponin High Sensitivity+C.LAB.BRZ ordered. EDUT EDMS
[2024-05-09 09:57] VITALS: O2SAT 100
[2024-05-09 10:01] VITALS: BP 128/91; TEMP 98.1
--- NOTE | 2024-05-11 12:04 | EKG ---
Test Date: 2024-05-08 Test Time: 21:35:52 Dock Grader: MEASUREMENT RESULTS: Intervals: Rate: 77 PA: 178 QRSD: 84 QT: 392 QTc: 443 [place]: P: 62 PA: 178 QRS: 30 T: 160 INTERPRETIVE STATEMENTS: Normal sinus rhythm Left ventricular hypertrophy with repolarization abnormality Abnormal ECG Compared to ECG 05/08/2024 00:10:24 No significant changes Electronically Signed On 05-11-24 12:04:11 COSMETIC ACCOUNT COORDINATOR by Alan Garay
== END 2024-05-08 22:21 | disposition home or self-care (01) ==
LOC: ER 19:46
DX: R07.9 Chest pain, unspecified (principal)
CPT/HCPCS: 36415; 84484; 93005; 99284

== ENCOUNTER 2024-05-09 18:28 | Emergency (ER) | payer OTHER ==
--- NOTE | 2024-05-09 19:23 | ER ---
Nurse's Notes [facility] Name: Geetha Khan Age: 49 yrs Sex: Female : 1975 Arrival Date: 05/09/2024 Time: 18:28 Bed IW10 Private MD: Diagnosis: Other chronic pain Presentation: 05/09 18:28 Chief complaint: EMS states: Pain all over. Coronavirus screen: At this time, the jl7 client does not indicate any symptoms associated with coronavirus-19. Ebola Screen: No symptoms or risks identified at this time. Onset of symptoms is unknown. 18:28 Method Of Arrival: EMS: [facility] jl7 18:28 Acuity: CORRINA 3 jl7 Historical: - Allergies: 19:08 Aspirin; jl7 19:08 CRANBERRY; jl7 19:08 FISH PRODUCT DERIVATIVES; jl7 19:08 GRAPEFRUIT; jl7 19:08 mushroom; jl7 19:08 SHELLFISH; jl7 - PMHx: 19:08 Cerebrovascular accident; Chronic obstructive lung disease; Hypertensive disorder; Left jl7 sided paralysis post CVA; Myocardial infarction; Seizure; - Immunization history:: Adult Immunizations unknown. - Infectious Disease History:: Denies. Assessment: 19:07 General: pt called from [employer]. no response. provider notified . lg3 19:20 General: pt called from [employer]. no response. provider notified. lg3 19:25 General: per registration, PT had pick her up prior to treatment. provider lg3 notified. ED Course: 18:28 Arm band placed on right wrist. Patient placed in waiting room, Patient notified of jl7 wait time. 18:34 Patient arrived in ED. sb4 18:34 Kalli Bradshaw PA-C is PHCP. sb4 18:34 Michael Grimm MD is Attending Physician. sb4 19:08 Triage completed. jl7 19:29 No provider procedures requiring assistance completed. Patient did not have IV access lg3 during this emergency room visit. Administered Medications: 19:28 Not Given (Patient Eloped): [id number] mg PO once lg3 19:28 Not Given (Patient Eloped): [id number] mg PO once lg3 19:28 Not Given (Patient Eloped): [id number] mg PO once lg3 Outcome: 19:23 Discharge ordered by . sb4 19:29 Eloped post triage evaluation and consult. see nurses note Time discovered patient lg3 gone: May 09, 2024 at 19:25 19:30 Patient left the ED. lg3 Signatures: Kailey Ching, RN RN jl7 Lauren Heath, RN RN lg3 Kalli Bradshaw, RENEA PAHermes sb4 Corrections: (The following items were deleted from the chart) 19:27 19:26 General: pt called from lobby. no response. provider notified . lg3 lg3
--- NOTE | 2024-05-09 19:23 | EDPHYS ---
Physician Documentation [facility] Name: Geetha Khan Age: 49 yrs Sex: Female : 1975 Arrival Date: 05/09/2024 Time: 18:28 Bed IW10 Private MD: ED Physician Michael Grimm HPI: 05/09 18:54 This 49 yrs old Female presents to ER via Unassigned with complaints of chest sb4 pain/anxiety. 19:00 patient presents with chronic chest pain and anxiety that is unchanged from her prior sb4 episodes. Historical: - Allergies: 19:08 Aspirin; jl7 19:08 CRANBERRY; jl7 19:08 FISH PRODUCT DERIVATIVES; jl7 19:08 GRAPEFRUIT; jl7 19:08 mushroom; jl7 19:08 SHELLFISH; jl7 - PMHx: 19:08 Cerebrovascular accident; Chronic obstructive lung disease; Hypertensive disorder; Left jl7 sided paralysis post CVA; Myocardial infarction; Seizure; - Immunization history:: Adult Immunizations unknown. - Infectious Disease History:: Denies. ROS: 19:01 Constitutional: Negative for fever, chills, and weight loss, sb4 19:01 Cardiovascular: Positive for chest pain, 19:01 Psych: Positive for anxiety, 19:01 All other systems are negative, Exam: 19:01 Constitutional: This is a well developed, well nourished patient who is awake, alert, sb4 and in no acute distress. Head/Face: Normocephalic, atraumatic. Eyes: Extra-ocular motions intact. Periorbital areas with no swelling, redness, or edema. ENT: Mucous membranes moist. Cardiovascular: Regular rate and rhythm with a normal S1 and S2. Respiratory: No increased work of breathing, no retractions or nasal flaring. Abdomen/GI: Soft, non-tender, no distension. Skin: Warm, dry with normal turgor. Normal color with no rashes, no lesions, and no evidence of cellulitis. MDM: 18:35 Medical Screening Exam initiated sb4 19:23 Data reviewed: vital signs, nurses notes, EMS record, and as a result, I will discharge sb4 patient. Counseling: I had a detailed discussion with the patient and/or guardian regarding the historical points, exam findings, and any diagnostic results supporting the discharge/admit diagnosis, the need for outpatient follow up, for definitive care, to return to the emergency department if symptoms worsen or persist or if there are any questions or concerns that arise at home, smoking cessation. Special discussion: I discussed with the patient their frequent requests for pain medications. Instructions have been given, that in the best interests of the patient, further pain Rx's must come from the patient's PCP or a paint brush maker. ED course: patient left prior to EKG being obtained or medications being administered. Administered Medications: 19:28 Not Given (Patient Eloped): [id number] mg PO once lg3 19:28 Not Given (Patient Eloped): [id number] mg PO once lg3 19:28 Not Given (Patient Eloped): mg PO once lg3 Disposition Summary: 05/09/24 19:23 Discharge Ordered Notes: Location: Home sb4 Problem: an ongoing problem sb4 Symptoms: are unchanged sb4 Condition: Stable sb4 Diagnosis - Other chronic pain sb4 Followup: sb4 - With: Private Physician - When: 1 week - Reason: Continuance of care Discharge Instructions: - Discharge Summary Sheet sb4 - Chronic Pain, Adult sb4 Forms: - Patient Portal Instructions sb4 - Leadership Thank You Letter sb4 Addendum: 05/11/2024 12:41 Co-signature as Attending Physician, Michael Grimm MD I agree with the assessment and c call plan of care. Signatures: Michael Grimm MD MD cha Leal, Jahala, RN RN jl7 Lauren Heath RN RN lg3 Kalli Bradshaw, PA-C PA-C sb4 Corrections: (The following items were deleted from the chart) 05/09 19:29 18:35 EKG - Nurse/Tech ordered. sb4 lg3
== END 2024-05-09 19:30 | disposition home or self-care (01) ==
LOC: ER 18:28
DX: G89.29 Other chronic pain (principal)
CPT/HCPCS: 99282

== ENCOUNTER 2024-05-11 01:49 | Emergency (ER) | payer OTHER ==
--- NOTE | 2024-05-11 01:58 | EDPHYS ---
Physician Documentation [facility] Name: Geetha Khan Age: 49 yrs Sex: Female : 1975 Arrival Date: 05/11/2024 Time: 01:49 Bed IW1 Private MD: ED Physician Hoa Eddy HPI: 05/11 01:56 This 49 yrs old Female presents to ER via EMS with complaints of PT STATES SHE NEEDS sp3 "PAIN MEDS". 01:56 41-year-old female well-known to the ED with PMH above now here for refill of her sp3 Valium states that she took it all. She denies any ongoing pain or other symptoms. Review of systems otherwise negative.. Historical: - Allergies: 01:53 Aspirin; lg3 01:53 CRANBERRY; lg3 01:53 FISH PRODUCT DERIVATIVES; lg3 01:53 GRAPEFRUIT; lg3 01:53 mushroom; lg3 01:53 SHELLFISH; lg3 - PMHx: 01:53 Cerebrovascular accident; Chronic obstructive lung disease; Hypertensive disorder; Left lg3 sided paralysis post CVA; Myocardial infarction; Seizure; - Immunization history:: Adult Immunizations up to date. - Infectious Disease History:: Denies. - Social history:: Smoking status: Patient reports the use of cigarette tobacco products, smokes one pack cigarettes per day. Patient/guardian denies using alcohol, street drugs. ROS: 01:57 Constitutional: Negative for fever, chills, and weight loss, Eyes: Negative for injury, sp3 pain, redness, and discharge, ENT: Negative for injury, pain, and discharge, Neck: Negative for injury, pain, and swelling, Cardiovascular: Negative for chest pain, palpitations, and edema, Respiratory: Negative for shortness of breath, cough, wheezing, and pleuritic chest pain, Abdomen/GI: Negative for abdominal pain, nausea, vomiting, diarrhea, and constipation, Back: Negative for injury and pain, MS/Extremity: Negative for injury and deformity, Skin: Negative for injury, rash, and discoloration, Neuro: Negative for headache, weakness, numbness, tingling, and seizure, Psych: Negative for depression, anxiety, suicide ideation, homicidal ideation, and hallucinations, Allergy/Immunology: Negative for hives, rash, and allergies, Endocrine: Negative for neck swelling, polydipsia, polyuria, polyphagia, and marked weight changes, 01:57 All other systems are negative, Exam: 01:57 Constitutional: This is a well developed, well nourished patient who is awake, alert, sp3 and in no acute distress. Head/Face: Normocephalic, atraumatic. Eyes: Pupils equal round and reactive to light, extra-ocular motions intact. Lids and lashes normal. Conjunctiva and sclera are non-icteric and not injected. Cornea within normal limits. Periorbital areas with no swelling, redness, or edema. Neck: Trachea midline, no thyromegaly or masses palpated, and no cervical lymphadenopathy. Supple, full range of motion without nuchal rigidity, or vertebral point tenderness. No Meningismus. Chest/axilla: Normal chest wall appearance and motion. Nontender with no deformity. No lesions are appreciated. Cardiovascular: Regular rate and rhythm with a normal S1 and S2. No gallops, murmurs, or rubs. Normal PMI, no JVD. No pulse deficits. Respiratory: Lungs have equal breath sounds bilaterally, clear to auscultation and percussion. No rales, rhonchi or wheezes noted. No increased work of breathing, no retractions or nasal flaring. Abdomen/GI: Soft, non-tender, with normal bowel sounds. No distension or tympany. No guarding or rebound. No evidence of tenderness throughout. Back: No spinal tenderness. No costovertebral tenderness. Full range of motion. Skin: Warm, dry with normal turgor. Normal color with no rashes, no lesions, and no evidence of cellulitis. MS/ Extremity: Pulses equal, no cyanosis. Neurovascular intact. Full, normal range of motion. Neuro: Awake and alert, GCS 15, oriented to person, place, time, and situation. Cranial nerves II-XII grossly intact. Motor strength 5/5 in all extremities. Sensory grossly intact. Cerebellar exam normal. Normal gait. Vital Signs: 01:52 BP 156 / 81; Pulse 76; Resp 16 S; Temp 98.1(O); Pulse Ox 100% on R/A; Pain 9/10; lg3 01:52 Pain Scale: Adult lg3 MDM: 01:57 Data reviewed: vital signs, nurses notes, EMS record, old medical records. ED course: sp3 Valium not indicated. Patient will be discharged home at this time. No acute emergency exists.. 01:57 Medical Screening Exam initiated sp3 Administered Medications: No medications were administered Disposition Summary: 05/11/24 01:57 Discharge Ordered Notes: Location: Home sp3 Condition: Stable sp3 Diagnosis - Medication refill sp3 Followup: sp3 - With: Private Physician - When: Upon discharge from the Emergency Department - Reason: Continuance of care Discharge Instructions: - Discharge Summary Sheet sp3 - Chronic Pain, Adult sp3 Forms: - Medication Reconciliation Form sp3 - Antibiotic Education sp3 - Prescription Opioid Use sp3 - Patient Portal Instructions sp3 - Leadership Thank You Letter sp3 Signatures: Lauren Heath RN RN lg3 Hoa Eddy MD MD sp3
--- NOTE | 2024-05-11 01:58 | ER ---
Nurse's Notes [facility] Name: Geetha Khan Age: 49 yrs Sex: Female : 1975 Arrival Date: 05/11/2024 Time: 01:49 Bed IW1 Private MD: Diagnosis: Medication refill Presentation: 05/11 01:52 Chief complaint: Patient states: i need pain meds. Coronavirus screen: Client denies lg3 travel out of the [place] in the last 14 days. At this time, the client does not indicate any symptoms associated with coronavirus-19. Ebola Screen: No symptoms or risks identified at this time. Initial Sepsis Screen: Does the patient meet any 2 criteria? No. Patient's initial sepsis screen is negative. Does the patient have a suspected source of infection? No. Patient's initial sepsis screen is negative. Risk Assessment: Do you want to hurt yourself or someone else? Patient reports no desire to harm self or others. Onset of symptoms is unknown. 01:52 Method Of Arrival: EMS: [facility] 3 01:52 Acuity: CORRINA 5 lg3 Triage Assessment: 01:53 General: Appears in no apparent distress. comfortable, Behavior is calm, cooperative. lg3 Pain: Complains of pain in all over. EENT: No deficits noted. No signs and/or symptoms were reported regarding the EENT system. Neuro: No deficits noted. Mullen Agitation-Sedation Scale (RASS): 0 - Alert and Calm Level of Consciousness is awake, alert, obeys commands, Oriented to person, place, time, situation. Cardiovascular: No deficits noted. Capillary refill < 3 seconds Clubbing of nail beds is absent JVD is absent Patient's skin is warm and dry. Respiratory: No deficits noted. Airway is patent Respiratory effort is even, unlabored, Respiratory pattern is regular, symmetrical, Breath sounds are clear bilaterally. GI: No deficits noted. No signs and/or symptoms were reported involving the gastrointestinal system. : No signs and/or symptoms were reported regarding the genitourinary system. Derm: No deficits noted. No signs and/or symptoms reported regarding the dermatologic system. Skin is intact, is healthy with good turgor, Skin is dry, Skin is normal, Skin temperature is warm. Musculoskeletal: No deficits noted. Circulation, motion, and sensation intact. Range of motion: intact in all extremities. Historical: - Allergies: 01:53 Aspirin; lg3 01:53 CRANBERRY; lg3 01:53 FISH PRODUCT DERIVATIVES; lg3 01:53 GRAPEFRUIT; lg3 01:53 mushroom; lg3 01:53 SHELLFISH; lg3 - PMHx: 01:53 Cerebrovascular accident; Chronic obstructive lung disease; Hypertensive disorder; Left lg3 sided paralysis post CVA; Myocardial infarction; Seizure; - Immunization history:: Adult Immunizations up to date. - Infectious Disease History:: Denies. - Social history:: Smoking status: Patient reports the use of cigarette tobacco products, smokes one pack cigarettes per day. Patient/guardian denies using alcohol, street drugs. Screenin:55 [facility] ED Fall Risk Assessment (Adult) History of falling in the last 3 months, lg3 including since admission No falls in past 3 months (0 pts) Confusion or Disorientation No (0 pts) Intoxicated or Sedated No (0 pts) Impaired Gait Yes (1 pt) Mobility Assist Device Used Yes (1 pt) Altered Elimination No (0 pt) Score/Fall Risk Level 0 - 2 = Low Risk Oriented to surroundings, Maintained a safe environment, Educated pt \T\ family on fall prevention, incl call for assistance when getting out of bed, Assessed \T\ reinforced patient's understanding of fall precautions. Abuse screen: Denies threats or abuse. Denies injuries from another. Nutritional screening: No deficits noted. Tuberculosis screening: No symptoms or risk factors identified. Assessment: 01:55 General: see triage assessment. lg3 Vital Signs: 01:52 BP 156 / 81; Pulse 76; Resp 16 S; Temp 98.1(O); Pulse Ox 100% on R/A; Pain 9/10; lg3 01:52 Pain Scale: Adult lg3 ED Course: 01:50 Patient arrived in ED. jj6 01:53 Triage completed. lg3 01:53 Arm band placed on right wrist. lg3 01:55 Patient has correct armband on for positive identification. lg3 01:55 No provider procedures requiring assistance completed. Patient did not have IV access lg3 during this emergency room visit. 01:56 Hoa Eddy MD is Attending Physician. sp3 Administered Medications: No medications were administered Medication: :55 VIS not applicable for this client. lg3 Outcome: 01:57 Discharge ordered by . sp3 02:04 Discharged to home via wheelchair, with significant other, lg3 02:04 Condition: stable 02:04 Discharge instructions given to patient, Instructed on discharge instructions, follow up and referral plans. Demonstrated understanding of instructions, follow-up care, 02:05 Patient left the ED. lg3 Signatures: Lauren Heath RN RN lg3 Hoa Eddy MD MD sp3 Bia Garcia jj6
[2024-05-11 02:09] VITALS: BP 156/81; TEMP 98.1; O2SAT 100
== END 2024-05-11 02:05 | disposition home or self-care (01) ==
LOC: ER 01:49
DX: Z76.0 Encounter for issue of repeat prescription (principal)
CPT/HCPCS: 99283

== ENCOUNTER 2024-05-12 23:07 | Emergency (ER) | payer OTHER ==
[2024-05-12] MEDS ORDERED: DIPHENHYDRAMINE 25 MG TAB/CAP ONE (23:23)
--- NOTE | 2024-05-13 00:04 | ER ---
Nurse's Notes [facility] Name: Geetha Khan Age: 49 yrs Sex: Female : 1975 Arrival Date: 05/12/2024 Time: 23:07 Bed DX3 Private MD: Diagnosis: Concern for allergic reaction Presentation: 05/12 23:12 Chief complaint: EMS states: toned out for possible allergic reaction to [facility] medication. c/o itching. No rash or redness noted. No sob or swelling noted. Coronavirus screen: Vaccine status: Patient reports being unvaccinated. Ebola Screen: No symptoms or risks identified at this time. Initial Sepsis Screen: Does the patient meet any 2 criteria? No. Patient's initial sepsis screen is negative. Does the patient have a suspected source of infection? No. Patient's initial sepsis screen is negative. Risk Assessment: Do you want to hurt yourself or someone else? Patient reports no desire to harm self or others. Onset of symptoms is unknown. 23:12 Method Of Arrival: EMS: [place] [id number] 23:12 Acuity: CORRINA 4 [facility] Triage Assessment: 05/13 00:32 General: Appears in no apparent distress. Behavior is cooperative. Pain: Denies pain. vc1 EENT: No deficits noted. No signs and/or symptoms were reported regarding the EENT system. Neuro: Level of Consciousness is awake, alert, obeys commands, Oriented to person, place, time, situation, Appropriate for age. Cardiovascular: Heart tones S1 S2 present Capillary refill < 3 seconds Patient's skin is warm and dry. Respiratory: Airway is patent Respiratory effort is even, unlabored, Respiratory pattern is regular, symmetrical, Breath sounds are clear bilaterally. GI: No deficits noted. No signs and/or symptoms were reported involving the gastrointestinal system. : No deficits noted. No signs and/or symptoms were reported regarding the genitourinary system. Derm: Skin is intact, is healthy with good turgor, Skin is dry, Skin is normal, Skin temperature is warm. Musculoskeletal: Circulation, motion, and sensation intact. Range of motion: limited in left shoulder, left elbow and left hip. 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 - Infectious Disease History:: Denies. - Social history:: Smoking status: Patient reports the use of cigarette tobacco products, smokes one-half pack cigarettes per day. Screenin:10 [facility] ED Fall Risk Assessment (Adult) History of falling in the last 3 months, vc1 including since admission Yes- fall prone (multiple falls) (3 pts) Confusion or Disorientation No (0 pts) Intoxicated or Sedated No (0 pts) Impaired Gait Yes (1 pt) Mobility Assist Device Used Yes (1 pt) Altered Elimination No (0 pt) Score/Fall Risk Level 3 or more points = High Risk Oriented to surroundings, Maintained a safe environment, Educated pt \T\ family on fall prevention, incl call for assistance when getting out of bed. Abuse screen: Denies threats or abuse. Nutritional screening: No deficits noted. Tuberculosis screening: No symptoms or risk factors identified. Vital Signs: 23:12 BP 133 / 85; Pulse 98; Resp 18; Temp 98.2; Pulse Ox 98% ; Weight 65.77 kg; Height 5 ft. me1 4 in. ; 23:33 BP 145 / 87; Pulse 96; Resp 16; Temp 97.5; Pulse Ox 100% on R/A; vk 23:12 Body Mass Index 24.89 (65.77 kg, 162.56 cm) me1 ED Course: 23:10 Patient arrived in ED. ec2 23:10 Russell Rodriguez MD is Attending Physician. ec2 23:11 Nohemy Clark, YANETH is Primary Nurse. me1 23:22 Triage completed. me1 23:22 Arm band placed on Patient placed in an exam room. me1 23:22 Patient has correct armband on for positive identification. placed in wheelchair. vc1 23:22 Provided Education on: OTC benadryl. vc1 05/13 00:32 No provider procedures requiring assistance completed. Patient did not have IV access vc1 during this emergency room visit. Administered Medications: 05/12 23:48 Drug: diphenhydrAMINE PO 50 mg PO once Route: PO; vc1 Medication: 23:38 VIS not applicable for this client. vc1 Outcome: 05/13 00:03 Discharge ordered by . ec2 00:34 Discharged to home via wheelchair, with significant other, vc1 00:34 Condition: stable 00:34 Discharge instructions given to patient, Instructed on discharge instructions, follow up and referral plans. Demonstrated understanding of instructions, follow-up care, 00:34 Patient left the ED. vc1 Signatures: Syeda Bruce RN RN vc1 Nohemy Clark RN RN me1 Russell Rodriguez MD MD ec2 Chata Gibbons Corrections: (The following items were deleted from the chart) 05/12 23:22 23:11 Chief complaint: me1 me1
--- NOTE | 2024-05-13 00:04 | EDPHYS ---
Physician Documentation [facility] Name: Geetha Khan Age: 49 yrs Sex: Female : 1975 Arrival Date: 05/12/2024 Time: 23:07 Bed DX3 Private MD: ED Physician Russell Rodriguez HPI: 05/12 23:10 This 49 yrs old Female presents to ER via Unassigned with complaints of ec2 concern for allergic rxn. 23:11 Patient arrives today with concern for allergic reaction. Patient reports that she took ec2 atorvastatin for the first time tonight and is concerned that she is having allergic reaction as she is having some itching. Denies any difficulty breathing or facial swelling or rashes. SITE ACQUISITION MANAGER: 23:22 LMP N/A - Post-menopause, Not me1 Historical: - Allergies: 23:22 Aspirin; me1 23:22 CRANBERRY; me1 23:22 FISH PRODUCT DERIVATIVES; me1 23:22 GRAPEFRUIT; me1 23:22 mushroom; me1 23:22 SHELLFISH; me1 - PMHx: 23:22 Cerebrovascular accident; Chronic obstructive lung disease; Hypertensive disorder; Left me1 sided paralysis post CVA; Myocardial infarction; Seizure; - PSHx: 23:22 None; me1 - Immunization history:: Adult Immunizations up to date. - Infectious Disease History:: Denies. - Social history:: Smoking status: Patient reports the use of cigarette tobacco products, smokes one-half pack cigarettes per day. ROS: 23:12 Constitutional: as per hpi ec2 Exam: 23:12 Constitutional: GEN: NAD Head: atraumatic Eyes: EOMI Ears: External ears are normal. ec2 Face: No facial swelling appreciated. CV: regular rate LUNGS: no respiratory distress, no wheezes or rales or rhonchi ABD: non-distended SKIN: no evidence of rashes MSK: no evidence of trauma Vital Signs: 23:12 BP 133 / 85; Pulse 98; Resp 18; Temp 98.2; Pulse Ox 98% ; Weight 65.77 kg; Height 5 ft. me1 4 in. ; 23:33 BP 145 / 87; Pulse 96; Resp 16; Temp 97.5; Pulse Ox 100% on R/A; vk 23:12 Body Mass Index 24.89 (65.77 kg, 162.56 cm) nc1 MDM: 23:13 Data reviewed: vital signs, nurses notes. ED course: Patient arrives today with itching ec2 after taking new medication, examination is unrevealing. Will give the patient Benadryl and monitor.. 23:14 Medical Screening Exam initiated ec2 05/13 00:02 ED course: On reassessment patient is well-appearing in no acute distress. Will ec2 discharge home with return precautions given.. Administered Medications: 05/12 23:48 Drug: diphenhydrAMINE PO 50 mg PO once Route: PO; vc1 Disposition Summary: 05/13/24 00:03 Discharge Ordered Notes: Location: Home ec2 Condition: Stable ec2 Diagnosis - Concern for allergic reaction ec2 Followup: ec2 - With: Private Physician - When: - Reason: Re-evaluation by your physician Forms: - Medication Reconciliation Form ec2 - Antibiotic Education ec2 - Prescription Opioid Use ec2 - Patient Portal Instructions ec2 - Leadership Thank You Letter ec2 Signatures: Syeda Bruce RN RN 1 Nohemy Clark RN RN nc1 Russell Rodriguez MD MD ec2
[2024-05-13 00:57] VITALS: BP 145/87; TEMP 97.5; O2SAT 100
== END 2024-05-13 00:34 | disposition home or self-care (01) ==
LOC: ER 23:07
DX: L29.9 Pruritus, unspecified (principal)
CPT/HCPCS: 99283

== ENCOUNTER 2024-06-06 18:21 | Emergency (ER) | payer OTHER, SELFPAY ==
--- NOTE | 2024-06-06 18:28 | ER ---
Nurse's Notes [facility] Name: Geetha Khan Age: 49 yrs Sex: Female : 1975 Arrival Date: 06/06/2024 Time: 18:21 Bed IW1 Private MD: Diagnosis: Chronic chest pain Presentation: 06/06 18:21 Chief complaint: Patient states: she is having chest pain and left shoulder pain. ap3 patient feels like her shoulder is "out of place because it hurts like hell.". Coronavirus screen: At this time, the client does not indicate any symptoms associated with coronavirus-19. Ebola Screen: No symptoms or risks identified at this time. Initial Sepsis Screen: Does the patient meet any 2 criteria? HR > 90 bpm. No. Patient's initial sepsis screen is negative. Does the patient have a suspected source of infection? No. Patient's initial sepsis screen is negative. Risk Assessment: Do you want to hurt yourself or someone else? Patient reports no desire to harm self or others. Onset of symptoms is unknown. 18:21 Method Of Arrival: EMS: [facility] ap3 18:21 Acuity: CORRINA 3 ap3 Triage Assessment: 18:23 General: Appears in no apparent distress. Behavior is calm, cooperative, appropriate ap3 for age. Pain: Complains of pain in chest and left arm Pain currently is 9 out of 10 on a pain scale. Neuro: Level of Consciousness is awake, alert, obeys commands, Oriented to person, place, time, situation, Appropriate for age. Cardiovascular: Patient's skin is warm and dry. Respiratory: Airway is patent Respiratory effort is even, unlabored, Respiratory pattern is regular, symmetrical. 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 Flu vaccine is up to date. - Infectious Disease History:: Denies. - Social history:: Smoking status: Patient reports the use of cigarette tobacco products, smokes one-half pack cigarettes per day. Screenin:23 [facility] ED Fall Risk Assessment (Adult) History of falling in the last 3 months, ap3 including since admission Yes- fall prone (multiple falls) (3 pts) Confusion or Disorientation No (0 pts) Intoxicated or Sedated No (0 pts) Impaired Gait Yes (1 pt) Mobility Assist Device Used Yes (1 pt) Altered Elimination Yes (1 pt) Score/Fall Risk Level 3 or more points = High Risk Oriented to surroundings, Maintained a safe environment, Educated pt \\T\\ family on fall prevention, incl call for assistance when getting out of bed, Assessed \\T\\ reinforced patient's understanding of fall precautions, Hourly rounding (assess needs \\T\\ fall precautionary measures) done, Used ambulatory aids as needed (educated on \\T\\ assisted with), Implemented a Fall Risk Plan of Care, Remained w/in arm's length of patient and in sight while toileting, Offered frequent toileting (1:1 observation), Remained with patient while ambulating. Humpty Dumpty Scale Fall Assessment Tool (age< 18yrs). Abuse screen: Denies threats or abuse. Nutritional screening: No deficits noted. Tuberculosis screening: No symptoms or risk factors identified. Vital Signs: 18:21 BP 132 / 83; Pulse 91; Resp 17; Temp 98.1; Pulse Ox 100% ; Weight 65.77 kg; Height 5 ap3 ft. 2 in. ; Pain 9/10; 18:21 Body Mass Index 26.52 (65.77 kg, 157.48 cm) ap3 18:21 Pain Scale: Adult ap3 ED Course: 18:21 Patient arrived in ED. aa5 18:22 Triage completed. ap3 18:24 Arm band placed on right wrist. ap3 18:25 Hoa Eddy MD is Attending Physician. sp3 18:34 Patient has correct armband on for positive identification. in wheelchair in lobby. ap3 Provided Education on: discharge instructions. 18:34 No provider procedures requiring assistance completed. Patient did not have IV access ap3 during this emergency room visit. Administered Medications: No medications were administered Medication: 18:24 VIS not applicable for this client. ap3 Outcome: 18:28 Discharge ordered by . sp3 18:34 Discharged to [facility] ap3 18:34 Condition: good 18:34 Discharge instructions given to patient, Instructed on discharge instructions, follow up and referral plans. Demonstrated understanding of instructions, follow-up care, 18:35 Patient left the ED. ap3 Signatures: Rosemarie Lang, RN RN aa5 Anayeli Chandra RN RN ap3 Hoa Eddy MD MD sp3
--- NOTE | 2024-06-06 18:29 | EDPHYS ---
Physician Documentation [facility] Name: Geetha Khan Age: 49 yrs Sex: Female : 1975 Arrival Date: 06/06/2024 Time: 18:21 Bed IW1 Private MD: ED Physician Hoa Eddy HPI: 06/06 18:25 This 49 yrs old Female presents to ER via EMS with complaints of Chest Pain. sp3 18:25 49-year-old female very well-known to the ED with PMH above occluding COPD, CVA, sp3 hypertension presents with recurrent and chronic chest pain. Vital signs completely normal. Patient is in no acute distress. She denies any shortness of breath, Erik pain, nausea, vomiting, diarrhea or any other signs or symptoms on ROS at this time.. ENDOSCOPY TECH: 18:24 LMP N/A - Post-menopause, Not ap3 Historical: - Allergies: 18:22 Aspirin; ap3 18:22 CRANBERRY; ap3 18:22 FISH PRODUCT DERIVATIVES; ap3 18:22 GRAPEFRUIT; ap3 18:22 mushroom; ap3 18:22 SHELLFISH; ap3 - PMHx: 18:22 Cerebrovascular accident; Chronic obstructive lung disease; Hypertensive disorder; Left ap3 sided paralysis post CVA; Myocardial infarction; Seizure; - Immunization history:: Client reports having NOT received the Covid vaccine. Flu vaccine is up to date. - Infectious Disease History:: Denies. - Social history:: Smoking status: Patient reports the use of cigarette tobacco products, smokes one-half pack cigarettes per day. ROS: 18:25 Constitutional: Negative for fever, chills, and weight loss, Eyes: Negative for injury, sp3 pain, redness, and discharge, ENT: Negative for injury, pain, and discharge, Neck: Negative for injury, pain, and swelling, Respiratory: Negative for shortness of breath, cough, wheezing, and pleuritic chest pain, Abdomen/GI: Negative for abdominal pain, nausea, vomiting, diarrhea, and constipation, Back: Negative for injury and pain, MS/Extremity: Negative for injury and deformity, Skin: Negative for injury, rash, and discoloration, Neuro: Negative for headache, weakness, numbness, tingling, and seizure, Psych: Negative for depression, anxiety, suicide ideation, homicidal ideation, and hallucinations, Allergy/Immunology: Negative for hives, rash, and allergies, Endocrine: Negative for neck swelling, polydipsia, polyuria, polyphagia, and marked weight changes, Hematologic/Lymphatic: Negative for swollen nodes, abnormal bleeding, and unusual bruising, 18:25 All other systems are negative, Exam: 18:26 Constitutional: This is a well developed, well nourished patient who is awake, alert, sp3 and in no acute distress. Head/Face: Normocephalic, atraumatic. Eyes: Pupils equal round and reactive to light, extra-ocular motions intact. Lids and lashes normal. Conjunctiva and sclera are non-icteric and not injected. Cornea within normal limits. Periorbital areas with no swelling, redness, or edema. ENT: Nares patent. No nasal discharge, no septal abnormalities noted. External auditory canals are clear. Oropharynx with no redness, swelling, or masses, exudates, or evidence of obstruction, uvula midline. Mucous membranes moist. Neck: Trachea midline, no thyromegaly or masses palpated, and no cervical lymphadenopathy. Supple, full range of motion without nuchal rigidity, or vertebral point tenderness. No Meningismus. Chest/axilla: Normal chest wall appearance and motion. Nontender with no deformity. No lesions are appreciated. Cardiovascular: Regular rate and rhythm with a normal S1 and S2. No gallops, murmurs, or rubs. Normal PMI, no JVD. No pulse deficits. Respiratory: Lungs have equal breath sounds bilaterally, clear to auscultation and percussion. No rales, rhonchi or wheezes noted. No increased work of breathing, no retractions or nasal flaring. Abdomen/GI: Soft, non-tender, with normal bowel sounds. No distension or tympany. No guarding or rebound. No evidence of tenderness throughout. Back: No spinal tenderness. No costovertebral tenderness. Full range of motion. Skin: Warm, dry with normal turgor. Normal color with no rashes, no lesions, and no evidence of cellulitis. MS/ Extremity: Pulses equal, no cyanosis. Neurovascular intact. Full, normal range of motion. Neuro: Awake and alert, GCS 15, oriented to person, place, time, and situation. Cranial nerves II-XII grossly intact. Motor strength 5/5 in all extremities. Sensory grossly intact. Cerebellar exam normal. Normal gait. Psych: Awake, alert, with orientation to person, place and time. Behavior, mood, and affect are within normal limits. Vital Signs: 18:21 BP 132 / 83; Pulse 91; Resp 17; Temp 98.1; Pulse Ox 100% ; Weight 65.77 kg; Height 5 ap3 ft. 2 in. ; Pain 9/10; 18:21 Body Mass Index 26.52 (65.77 kg, 157.48 cm) ap3 18:21 Pain Scale: Adult ap3 MDM: 18:25 Medical Screening Exam initiated sp3 18:26 Data reviewed: vital signs, nurses notes, old medical records. ED course: Patient with sp3 chronic pattern of chest pain. EMS vital signs were normal. No further workup indicated and we will safely discharge patient home.. Administered Medications: No medications were administered Disposition Summary: 06/06/24 18:28 Discharge Ordered Notes: Location: Home sp3 Condition: Stable sp3 Diagnosis - Chronic chest pain sp3 Followup: sp3 - With: Private Physician - When: Upon discharge from the Emergency Department - Reason: Continuance of care Discharge Instructions: - Discharge Summary Sheet sp3 - Nonspecific Chest Pain, Adult, [id number] sp3 Forms: - Medication Reconciliation Form sp3 - Antibiotic Education sp3 - Prescription Opioid Use sp3 - Patient Portal Instructions sp3 - Leadership Thank You Letter sp3 Signatures: Anayeli Chandra RN RN ap3 Hoa Eddy MD MD sp3
[2024-06-06 18:45] VITALS: BP 132/83; TEMP 98.1; O2SAT 100
== END 2024-06-06 18:35 | disposition home or self-care (01) ==
LOC: ER 18:21
DX: R07.89 Other chest pain (principal)
CPT/HCPCS: 99283

== ENCOUNTER 2024-06-08 22:37 | Emergency (ER) | payer OTHER, SELFPAY ==
[2024-06-08] MEDS ORDERED: KETOROLAC 10 MG TAB ONE (23:25)
[2024-06-08] MEDS ORDERED: hydrOXYzine HCL 25 MG TAB ONE (23:25)
[2024-06-08] MEDS ORDERED: ACETAMINOPHEN 325 MG TABLET ONE (23:25)
--- NOTE | 2024-06-09 00:44 | ER ---
Nurse's Notes [facility] Name: Geetha Khan Age: 49 yrs Sex: Female : 1975 Arrival Date: 06/08/2024 Time: 22:37 Bed 16 Private MD: Diagnosis: Pain in left shoulder Presentation: 06/08 23:00 Chief complaint: Patient states: PT STATES SHE ROLLED OUT OF BED LAST WEEK AND br2 DISLOCATED LEFT SHOULER. Coronavirus screen: Client denies travel out of the [place] in the last 14 days. Ebola Screen: Patient denies exposure to infectious person. Initial Sepsis Screen: Does the patient meet any 2 criteria? No. Patient's initial sepsis screen is negative. Does the patient have a suspected source of infection? No. Patient's initial sepsis screen is negative. Risk Assessment: Do you want to hurt yourself or someone else? Patient reports no desire to harm self or others. Onset of symptoms was June 01, 2024. 23:00 Method Of Arrival: Wheelchair br2 23:00 Acuity: CORRINA 3 br2 Triage Assessment: 23:02 General: Appears in no apparent distress. comfortable, Behavior is calm, cooperative. br2 Pain: Complains of pain in left lateral posterior chest Pain currently is 10 out of 10 on a pain scale. 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 - Infectious Disease History:: Denies. - Social history:: Smoking status: Patient reports the use of cigarette tobacco products, smokes one-half pack cigarettes per day, Patient/guardian denies using alcohol, street drugs. Screenin:00 [facility] ED Fall Risk Assessment (Adult) History of falling in the last 3 months, rg5 including since admission Yes- fall prone (multiple falls) (3 pts) Confusion or Disorientation No (0 pts) Intoxicated or Sedated No (0 pts) Impaired Gait Yes (1 pt) Mobility Assist Device Used Yes (1 pt) Altered Elimination Yes (1 pt) Score/Fall Risk Level 3 or more points = High Risk Oriented to surroundings, Maintained a safe environment, Educated pt \T\ family on fall prevention, incl call for assistance when getting out of bed, Provided non-skid footwear, Hourly rounding (assess needs \T\ fall precautionary measures) done, Used ambulatory aids as needed (educated on \T\ assisted with). Abuse screen: Denies threats or abuse. Nutritional screening: No deficits noted. Tuberculosis screening: No symptoms or risk factors identified. Assessment: 23:00 General: Appears in no apparent distress. comfortable, Behavior is calm, cooperative, rg5 appropriate for age. Pain: Complains of pain in anterior aspect of right shoulder Quality of pain is described as aching, dull. Neuro: Level of Consciousness is awake, alert, obeys commands, Oriented to person, place, time, situation. Cardiovascular: Denies chest pain. Respiratory: Airway is patent Trachea midline Respiratory effort is even, unlabored, Respiratory pattern is regular, symmetrical. GI: Abdomen is flat, non-distended, Abd is soft and non tender. : No signs and/or symptoms were reported regarding the genitourinary system. EENT: No deficits noted. Derm: Skin is intact, Skin is dry, Skin is normal, Skin temperature is cool. Musculoskeletal: Circulation, motion, and sensation intact. 06/09 00:34 Reassessment: Patient and/or family updated on plan of care and expected duration. Pain rg5 level reassessed. Patient is alert, oriented x 3, equal unlabored respirations, skin warm/dry/pink. Patient states feeling better. Patient states symptoms have improved. Vital Signs: 06/08 23:00 BP 146 / 95; Pulse 76; Resp 18; Temp 97.1(O); Pulse Ox 99% on R/A; Weight 65.77 kg; br2 Height 5 ft. 2 in. ; Pain 10/10; 23:37 BP 145 / 98; Pulse 77; Resp 17; Pulse Ox 100% on R/A; Pain 7/10; rg5 06/09 00:15 BP 132 / 91; Pulse 73; Resp 18; Pulse Ox 97% on R/A; Pain 0/10; rg5 06/08 23:00 Body Mass Index 26.52 (65.77 kg, 157.48 cm) br2 06/08 23:00 Pain Scale: Adult br2 23:37 Pain Scale: Adult rg5 06/09 00:15 Pain Scale: Adult rg5 ED Course: 06/08 22:40 Patient arrived in ED. im 22:44 Kalli Bradshaw PA-C is PHCP. sb4 22:44 Uriel Cannon MD is Attending Physician. sb4 22:44 Hakan Crowley, RN is Primary Nurse. rg5 23:00 Patient has correct armband on for positive identification. Bed in low position. Call rg5 light in reach. Side rails up X2. Adult w/ patient. Door closed. Noise minimized. 23:00 No provider procedures requiring assistance completed. Patient did not have IV access rg5 during this emergency room visit. 23:01 Arm band placed on. rg5 23:02 Triage completed. br2 23:39 Shoulder Left (2 View) XRAY In Process Unspecified. EDMS 06/09 00:44 Sage Griffiths MD is Referral Physician. sb4 00:48 Provided Education on: post er care. rg5 Administered Medications: 06/08 23:36 Drug: Ketorolac PO 10 mg PO once Route: PO; rg5 06/09 00:45 Follow up: Response: No adverse reaction; Pain is decreased rg5 06/08 23:36 Drug: hydrOXYzine PO 25 mg PO once Route: PO; rg5 06/09 00:45 Follow up: Response: No adverse reaction; Pain is decreased rg5 06/08 23:36 Drug: Acetaminophen PO 650 mg PO once Route: PO; rg5 06/09 00:44 Follow up: Response: No adverse reaction; Pain is decreased rg5 Medication: 06/08 23:00 VIS not applicable for this client. rg5 Outcome: 06/09 00:44 Discharge ordered by . sb4 00:49 Discharged to home via wheelchair, rg5 00:49 Condition: stable 00:49 Discharge instructions given to patient, family, Instructed on discharge instructions, Demonstrated understanding of instructions, 00:52 Patient left the ED. rg5 Signatures: Dispatcher [employer] [facility] Kalli Bradshaw PA-C PA-C sb4 Verna Jhaveri Hakan Crowley, RN RN rg5 Destiney Moura RN RN br2
--- NOTE | 2024-06-09 00:44 | EDPHYS ---
Physician Documentation [facility] Name: Geetha Khan Age: 49 yrs Sex: Female : 1975 Arrival Date: 06/08/2024 Time: 22:37 Bed 16 Private MD: ED Physician Uriel Cannon HPI: 06/08 23:35 This 49 yrs old Female presents to ER via Wheelchair with complaints of Shoulder Pain. sb4 23:35 Patient states that she rolled out of bed 6 to 7 days ago and believes that she sb4 dislocated her left shoulder. States that she has dislocated in the past. Is complaining of pain to the area. Has been taking her prescribed methocarbamol without relief in symptoms. Denies any numbness, tingling, swelling, redness, warmth.. 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 - Infectious Disease History:: Denies. - Social history:: Smoking status: Patient reports the use of cigarette tobacco products, smokes one-half pack cigarettes per day, Patient/guardian denies using alcohol, street drugs. ROS: 23:35 Constitutional: Negative for fever, chills, and weight loss, sb4 23:35 MS/extremity: Positive for injury or acute deformity, pain, of the anterior aspect of left shoulder, 23:35 All other systems are negative, Exam: 23:35 Constitutional: This is a well developed, well nourished patient who is awake, alert, sb4 and in no acute distress. Head/Face: Normocephalic, atraumatic. Eyes: Extra-ocular motions intact. Periorbital areas with no swelling, redness, or edema. ENT: Mucous membranes moist. 23:35 Musculoskeletal/extremity: ROM: limited active range of motion, Left arm, due to prior stroke, limited active range of motion due to pain, in the left arm, Circulation is intact in all extremities. Pulses: are normal with no appreciated deficits, Vital Signs: 23:00 BP 146 / 95; Pulse 76; Resp 18; Temp 97.1(O); Pulse Ox 99% on R/A; Weight 65.77 kg; br2 Height 5 ft. 2 in. ; Pain 10/10; 23:37 BP 145 / 98; Pulse 77; Resp 17; Pulse Ox 100% on R/A; Pain 7/10; rg5 06/09 00:15 BP 132 / 91; Pulse 73; Resp 18; Pulse Ox 97% on R/A; Pain 0/10; rg5 06/08 23:00 Body Mass Index 26.52 (65.77 kg, 157.48 cm) br2 06/08 23:00 Pain Scale: Adult br2 23:37 Pain Scale: Adult rg5 06/09 00:15 Pain Scale: Adult rg5 MDM: 06/08 22:45 Medical Screening Exam initiated sb4 06/09 00:44 Data reviewed: vital signs, nurses notes, radiologic studies, I have discussed the sb4 patient's presentation/case with the attending Emergency Department Physician; and as a result, I will discharge patient. Counseling: I had a detailed discussion with the patient and/or guardian regarding the historical points, exam findings, and any diagnostic results supporting the discharge/admit diagnosis, radiology results, the need for outpatient follow up, for definitive care, to return to the emergency department if symptoms worsen or persist or if there are any questions or concerns that arise at home. 06/08 23:10 Order name: Shoulder Left (2 View) XRAY sb4 06/09 00:43 Order name: Sling; Complete Time: 00:44 sb4 Administered Medications: 06/08 23:36 Drug: Ketorolac PO 10 mg PO once Route: PO; rg5 06/09 00:45 Follow up: Response: No adverse reaction; Pain is decreased rg5 06/08 23:36 Drug: hydrOXYzine PO 25 mg PO once Route: PO; rg5 06/09 00:45 Follow up: Response: No adverse reaction; Pain is decreased rg5 06/08 23:36 Drug: Acetaminophen PO 650 mg PO once Route: PO; rg5 06/09 00:44 Follow up: Response: No adverse reaction; Pain is decreased rg5 Disposition: 02:05 Co-signature as Attending Physician, Uriel Cannon MD I agree with the assessment sp4 and plan of care. I reviewed the patient's care provided by the Advanced Practice Provider and agree with the diagnosis and treatment plan. Disposition Summary: 06/09/24 00:44 Discharge Ordered Notes: Location: Home sb4 Problem: an ongoing problem sb4 Symptoms: have improved sb4 Condition: Stable sb4 Diagnosis - Pain in left shoulder sb4 Followup: sb4 - With: Sage Griffiths MD - When: 2 - 3 days - Reason: Recheck today's complaints, Re-evaluation by your physician Discharge Instructions: - Discharge Summary Sheet sb4 - Shoulder Pain sb4 Forms: - Patient Portal Instructions sb4 - Leadership Thank You Letter sb4 Signatures: Dispatcher [employer] EDKalli Basilio PA-C PA-C sb4 Uriel Cannon MD MD sp4 Hakan Crowley, RN RN rg5 Destiney Moura RN RN br2
[2024-06-09 01:06] VITALS: TEMP 97.1
[2024-06-09 01:09] VITALS: BP 132/91; O2SAT 97
--- NOTE | 2024-06-09 05:52 | RAD REPORT ---
CLINICAL HISTORY: PAIN. COMPARISON: None. TECHNIQUE: 2 views of the left shoulder were obtained: AP and transscapular Y radiographs. FINDINGS: No acute fracture identified. Appearance of inferior subluxation of the humeral head at the glenohume ral joint on the AP view. No evidence of dislocation on the transscapular Y view. No acromioclavicular joint widening. Demineralized appearance of the bones. IMPRESSION: No acute fracture identified. Inferiorly subluxed appearance of the humeral head at the glenohumeral joint, with no definite dislocation. Consider correlation with axillary view. Electronically signed by: Jen Feliciano MD 06/08/2024 11:52 PM CDT RP Due to temporary technical issues with the PACS/Entellium reporting system, reports are being edwin d by the in-house radiologist without review as a courtesy to ensure prompt reporting the interpreting radiologist is fully responsible for the content of the report. Transcribed Date/Time: 06/09/2024 5:52 AM
== END 2024-06-09 00:52 | disposition home or self-care (01) ==
LOC: ER 22:37
DX: M25.512 Pain in left shoulder (principal); W06.XXXA Fall from bed, initial encounter
CPT/HCPCS: 99283

== ENCOUNTER 2024-06-09 21:36 | Emergency (ER) | payer OTHER ==
[2024-06-09] MEDS ORDERED: KETOROLAC 10 MG TAB ONE (22:12)
[2024-06-09] MEDS ORDERED: ACETAMINOPHEN 325 MG TABLET ONE (22:13)
--- NOTE | 2024-06-09 22:55 | EDPHYS ---
Physician Documentation [facility] Name: Geetha Khan Age: 49 yrs Sex: Female : 1975 Arrival Date: 06/09/2024 Time: 21:36 Bed 24 Private MD: ED Physician Uriel Cannon HPI: 06/09 23:16 This 49 yrs old Female presents to ER via EMS with complaints of shoulder pain. kb 23:16 Pt is a 49 year old female who presents for left shoulder pain. States the pain started kb about 8 days ago and the shoulder has been popping in and out of place. States it popped out of place today. . Historical: - Allergies: 22:16 Aspirin; jb4 22:16 CRANBERRY; jb4 22:16 FISH PRODUCT DERIVATIVES; jb4 22:16 GRAPEFRUIT; jb4 22:16 mushroom; jb4 22:16 SHELLFISH; jb4 - PMHx: 22:16 Chronic obstructive lung disease; Myocardial infarction; Cerebrovascular accident; jb4 Hypertensive disorder; Left sided paralysis post CVA; Seizure; ROS: 23:14 Constitutional: As per HPI kb Exam: 23:14 Constitutional: This is a well developed, well nourished patient who is awake, alert, kb and in no acute distress. Head/Face: Normocephalic, atraumatic. ENT: Moist Mucous membranes Cardiovascular: Regular rate Respiratory: Respirations even and unlabored. No increased work of breathing. Talking in full sentences Abdomen/GI: Soft, non-tender. No distention Skin: Warm, dry with normal turgor. Normal color. Neuro: Awake and alert, GCS 15, oriented to person, place, time, and situation. 23:14 Musculoskeletal/extremity: Extremities: grossly normal except: noted in the anterior aspect of left shoulder: pain, ROM: full passive range of motion, Circulation is intact in all extremities. Sensation intact. Vital Signs: 21:47 BP 165 / 94; Pulse 83; Resp 16; Pulse Ox 98% on R/A; jb4 MDM: 21:44 Medical Screening Exam initiated kb 23:15 Differential diagnosis: Anterior dislocation with fracture, Anterior dislocation kb without fracture, Posterior dislocation with fracture, Posterior dislocation without fracture. Data reviewed: vital signs, nurses notes. Historians other than the Patient: EMS: [facility]. Counseling: I had a detailed discussion with the patient and/or guardian regarding the historical points, exam findings, and any diagnostic results supporting the discharge/admit diagnosis, the need for outpatient follow up, to return to the emergency department if symptoms worsen or persist or if there are any questions or concerns that arise at home. ED course: Pt's arrived so pt requested to be discharged prior to xray results. . 06/09 21:47 Order name: Shoulder Left (2 View) XRAY kb Administered Medications: 22:16 Drug: Ketorolac PO 10 mg PO once Route: PO; jb4 23:14 Follow up: Response: No adverse reaction; Marked relief of symptoms jb4 22:17 Drug: Acetaminophen PO 650 mg PO once Route: PO; jb4 23:14 Follow up: Response: No adverse reaction; Marked relief of symptoms jb4 Disposition: 06/10 20:23 Co-signature as Attending Physician, Uriel Cannon MD I agree with the assessment sp4 and plan of care. I reviewed the patient's care provided by Advanced Practice Provider \T\ agree w/ the diagnosis \T\ care plan. I personally saw the pt \T\ performed a substantive portion of the visit, incldng all aspects of the (History/Exam/Medical Decision Making). Disposition Summary: 06/09/24 22:54 Discharge Ordered Notes: Location: Home kb Condition: Stable kb Diagnosis - Pain in left shoulder kb Followup: kb - With: Emergency Department - When: As needed - Reason: Worsening of condition Followup: kb - With: Private Physician - When: 2 - 3 days - Reason: Recheck today's complaints, Continuance of care, Re-evaluation by your physician Discharge Instructions: - Discharge Summary Sheet kb - Shoulder Pain, [id number] kb Forms: - Medication Reconciliation Form kb - Antibiotic Education kb - Prescription Opioid Use kb - Patient Portal Instructions kb - Leadership Thank You Letter kb Signatures: Dispatcher [employer] Kathy Hines FNP-C FNP-Jaziel Donohue, RN RN jb4 Uriel Cannon MD MD sp4
--- NOTE | 2024-06-09 22:55 | ER ---
Nurse's Notes [facility] Name: Geetha Khan Age: 49 yrs Sex: Female : 1975 Arrival Date: 06/09/2024 Time: 21:36 Bed 24 Private MD: Diagnosis: Pain in left shoulder Presentation: 06/09 21:47 Initial Sepsis Screen: Does the patient meet any 2 criteria? No. Patient's initial jb4 sepsis screen is negative. Does the patient have a suspected source of infection? No. Patient's initial sepsis screen is negative. Risk Assessment: Do you want to hurt yourself or someone else? Patient reports no desire to harm self or others. Onset of symptoms was June 09, 2024. Transition of care: patient was not received from another setting of care. 21:47 Acuity: CORRINA 5 jb4 23:08 Chief complaint: Patient states: My left shoulder hurts. Coronavirus screen: At this jb4 time, the client does not indicate any symptoms associated with coronavirus-19. Ebola Screen: No symptoms or risks identified at this time. 23:08 Method Of Arrival: EMS: [facility] jb4 Historical: - Allergies: 22:16 Aspirin; jb4 22:16 CRANBERRY; jb4 22:16 FISH PRODUCT DERIVATIVES; jb4 22:16 GRAPEFRUIT; jb4 22:16 mushroom; jb4 22:16 SHELLFISH; jb4 - PMHx: 22:16 Chronic obstructive lung disease; Myocardial infarction; Cerebrovascular accident; jb4 Hypertensive disorder; Left sided paralysis post CVA; Seizure; Screenin:10 [facility] ED Fall Risk Assessment (Adult) History of falling in the last 3 months, jb4 including since admission No falls in past 3 months (0 pts) Confusion or Disorientation No (0 pts) Intoxicated or Sedated No (0 pts) Impaired Gait Yes (1 pt) Mobility Assist Device Used Yes (1 pt) Altered Elimination Yes (1 pt) Score/Fall Risk Level 3 or more points = High Risk Oriented to surroundings, Maintained a safe environment. Abuse screen: Denies threats or abuse. Nutritional screening: No deficits noted. Assessment: 22:00 General: Appears in no apparent distress. comfortable, Behavior is calm, cooperative. jb4 Pain: Complains of pain in left shoulder Pain does not radiate. Pain currently is 6 out of 10 on a pain scale. Neuro: Level of Consciousness is awake, alert, obeys commands, Oriented to person, place, time, situation. Cardiovascular: Respiratory: Airway is patent Respiratory effort is even, unlabored, Respiratory pattern is regular, symmetrical. Derm: Skin is intact, Skin is pink, warm \T\ dry. Musculoskeletal: Circulation, motion, and sensation intact. Range of motion: intact in all extremities. 23:10 Reassessment: Patient appears in no apparent distress at this time. Patient and/or jb4 family updated on plan of care and expected duration. Pain level reassessed. Patient is alert, oriented x 3, equal unlabored respirations, skin warm/dry/pink. Patient states feeling better. Vital Signs: 21:47 BP 165 / 94; Pulse 83; Resp 16; Pulse Ox 98% on R/A; jb4 ED Course: 21:41 Patient arrived in ED. kmf 21:44 Kathy Kerns [facility]-C [facility] kb 21:44 Uriel Cannon MD is Attending Physician. kb 22:16 Arm band placed on right wrist. jb4 22:22 Shoulder Left (2 View) XRAY In Process Unspecified. EDMS 23:09 Triage completed. jb4 23:10 Patient has correct armband on for positive identification. Bed in low position. Call jb4 light in reach. Side rails up X 1. Provided Education on: discharge instructions. 23:10 No provider procedures requiring assistance completed. Patient did not have IV access jb4 during this emergency room visit. Administered Medications: 22:16 Drug: Ketorolac PO 10 mg PO once Route: PO; jb4 23:14 Follow up: Response: No adverse reaction; Marked relief of symptoms jb4 22:17 Drug: Acetaminophen PO 650 mg PO once Route: PO; jb4 23:14 Follow up: Response: No adverse reaction; Marked relief of symptoms jb4 Medication: 23:10 VIS not applicable for this client. jb4 Outcome: 22:54 Discharge ordered by . kb 23:10 Discharged to home via wheelchair, with family, jb4 23:10 Condition: stable 23:10 Discharge instructions given to patient, Instructed on discharge instructions, follow up and referral plans. Demonstrated understanding of instructions, follow-up care, 23:16 Patient left the ED. jb4 Signatures: Dispatcher [employer] EDMS Kathy Kerns FNP-C CREDIT ADMINISTRATION OFFICER-Ckb Jaziel Storm, RN RN jb4 Phuong Dayf
--- NOTE | 2024-06-09 23:20 | RAD REPORT ---
EXAMINATION: XR LEFT SHOULDER CLINICAL INDICATION: Female, 49 years old. PAIN TECHNIQUE: Internal and external AP view radiograph of the left shoulder were obtained. COMPARISON: 06/08/2024 FINDINGS: No evidence of fracture or dislocation. Inferior subluxation of the humeral head relative t o the glenoid, similar to prior exam. AC joint is well aligned. No evidence of arthropathy or other focal bone lesion. Soft tissues are unremarkable. IMPRESSION: No acute or significant abnormalities.
[2024-06-09 23:33] VITALS: BP 165/94; O2SAT 98
== END 2024-06-09 23:16 | disposition home or self-care (01) ==
LOC: ER 21:36
DX: M25.512 Pain in left shoulder (principal)
CPT/HCPCS: 99283

== ENCOUNTER 2024-07-15 20:31 | Emergency (ER) | payer OTHER ==
--- NOTE | 2024-07-15 21:07 | ER ---
Nurse's Notes [facility] Name: Geetha Khan Age: 49 yrs Sex: Female : 1975 Arrival Date: 07/15/2024 Time: 20:31 Bed IW7 Private MD: Diagnosis: Generalized anxiety disorder;Chest pain, unspecified Presentation: 07/15 20:34 Chief complaint: EMS states: TONED OUT FOR CHEST PAIN AND ANXIETY BEGINNING APPROX 2 dd2 HRS [employer]. Coronavirus screen: At this time, the client does not indicate any symptoms associated with coronavirus-19. Ebola Screen: No symptoms or risks identified at this time. Initial Sepsis Screen: Does the patient meet any 2 criteria? No. Patient's initial sepsis screen is negative. Does the patient have a suspected source of infection? No. Patient's initial sepsis screen is negative. Risk Assessment: Do you want to hurt yourself or someone else? Patient reports no desire to harm self or others. Onset of symptoms was July 15, 2024. 20:34 Method Of Arrival: EMS: [facility] dd2 20:34 Acuity: CORRINA 3 dd2 Triage Assessment: 20:36 General: Appears in no apparent distress. Behavior is calm, cooperative, appropriate dd2 for age. Pain: Complains of pain in chest Pain does not radiate. Pain currently is 8 out of 10 on a pain scale. Cardiovascular: Reports chest pain, ANXIETY since X2 HOURS [employer] Patient's skin is warm and dry. Respiratory: Airway is patent Respiratory effort is even, unlabored, Respiratory pattern is regular, symmetrical. 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 - Infectious Disease History:: Denies. - Social history:: Smoking status: unknown. - Family history:: not pertinent. Screenin:48 [facility] ED Fall Risk Assessment (Adult) History of falling in the last 3 months, dd2 including since admission Yes- single mechanical fall (1 pt) Confusion or Disorientation No (0 pts) Intoxicated or Sedated No (0 pts) Impaired Gait Yes (1 pt) Mobility Assist Device Used Yes (1 pt) Altered Elimination Yes (1 pt) Score/Fall Risk Level 3 or more points = High Risk Oriented to surroundings, Maintained a safe environment, Educated pt \T\ family on fall prevention, incl call for assistance when getting out of bed, Assessed \T\ reinforced patient's understanding of fall precautions, Hourly rounding (assess needs \T\ fall precautionary measures) done. Abuse screen: Denies threats or abuse. Denies injuries from another. Nutritional screening: No deficits noted. Tuberculosis screening: No symptoms or risk factors identified. Assessment: 21:44 Reassessment: SEE TRIAGE ASSESSMENT FOR MAIN ASSESSMEENT. Pain: Complains of pain in dd2 chest Pain does not radiate. Pain currently is 5 out of 10 on a pain scale. Pain began 3 hours ago. Vital Signs: 20:34 BP 160 / 90; Pulse 83; Resp 16; Temp 97.8(O); Pulse Ox 99% on R/A; Weight 56.7 kg; dd2 21:44 BP 154 / 86; Pulse 85; Resp 17; Temp 98.3; Pulse Ox 98% on R/A; dd2 [place] Coma Score: 22:38 Eye Response: spontaneous(4). Motor Response: obeys commands(6). Verbal Response: sp4 oriented(5). Total: 15. ED Course: 20:33 Patient arrived in ED. dd2 20:36 Triage completed. dd2 20:36 Arm band placed on right wrist. dd2 20:38 Uriel Cannon MD is Attending Physician. sp4 21:44 Patient did not have IV access during this emergency room visit. Patient maintains SpO2 dd2 saturation greater than 95% on room air. 21:48 Patient has correct armband on for positive identification. Provided Education on: D/C dd2 EDUCATION. Client placed on continuous cardiac and pulse oximetry monitoring. NIBP monitoring applied. 21:49 No provider procedures requiring assistance completed. dd2 Administered Medications: 21:42 Drug: Ketorolac PO 10 mg PO once Route: PO; dd2 21:50 Follow up: Response: Medication administered at discharge. dd2 21:42 Drug: Methocarbamol PO 1500 mg PO once Route: PO; dd2 21:50 Follow up: Response: Medication administered at discharge. dd2 Medication: 21:48 VIS not applicable for this client. dd2 Outcome: 21:06 Discharge ordered by . sp4 21:44 Discharged to home with family, dd2 21:44 Condition: stable 21:44 Discharge instructions given to patient, Instructed on discharge instructions, follow up and referral plans. Demonstrated understanding of instructions, follow-up care, 21:49 Patient left the ED. dd2 Signatures: Uriel Cannon MD MD sp4 MAGGIE GIBSON RN RN dd2
--- NOTE | 2024-07-15 21:07 | EDPHYS ---
Physician Documentation [facility] Name: Geetha Khna Age: 49 yrs Sex: Female : 1975 Arrival Date: 07/15/2024 Time: 20:31 Bed IW7 Private MD: ED Physician rUiel Cannon HPI: 07/15 20:38 This 49 yrs old Female presents to ER via EMS with complaints of Chest Pain, sp4 Anxiety. 22:38 49-year-old female presents with EMS with complaint of chest discomfort and anxiety. sp4 Patient is very familiar to me from prior visits for similar presentation. 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 - Infectious Disease History:: Denies. - Social history:: Smoking status: unknown. - Family history:: not pertinent. ROS: 22:38 Constitutional: Negative for fever, chills, and weight loss, positive for anxiety sp4 positive for chest discomfort 22:38 All other systems are negative, Exam: 22:38 Constitutional: Patient is chronically debilitated female with left-sided hemiparesis sp4 from prior hemorrhagic CVA. Chronic hemiparesis chronic physical deconditioning. Head/Face: Normocephalic, atraumatic. Eyes: Pupils equal round and reactive to light, extra-ocular motions intact. Lids and lashes normal. Conjunctiva and sclera are not injected. Cornea within normal limits. Periorbital areas with no swelling, redness, or edema. ENT: Nares patent. No nasal discharge, no septal abnormalities noted. Tympanic membranes are normal and external auditory canals are clear. Oropharynx with no redness, swelling, or masses, exudates, or evidence of obstruction, uvula midline. Mucous membranes moist. Neck: Trachea midline, no thyromegaly or masses palpated, and no cervical lymphadenopathy. Supple, full range of motion without nuchal rigidity, or vertebral point tenderness. Chest/axilla: Normal chest wall appearance and motion. Nontender with no deformity. No lesions are appreciated. Cardiovascular: Regular rate and rhythm with a normal S1 and S2. No gallops, murmurs, or rubs. Normal PMI, no JVD. No pulse deficits. Respiratory: Lungs have equal breath sounds bilaterally, clear to auscultation and percussion. No rales, rhonchi or wheezes noted. No increased work of breathing, no retractions or nasal flaring. Abdomen/GI: Soft, with normal bowel sounds. No distension or tympany. No guarding or rebound. No evidence of tenderness throughout. Back: No spinal tenderness. No costovertebral tenderness. Skin: Warm, dry with normal turgor. Normal color with no rashes, no lesions, and no evidence of cellulitis. MS/ Extremity: Pulses equal, no cyanosis. Neurovascular intact. Full, normal range of motion. Neuro: Awake and alert, GCS 15, oriented to person, place, time, and situation. Patient has chronic left-sided hemiparesis from prior CVA, contractures left upper left lower extremity, no new neurologic deficits based on exam Psych: Awake, alert, with orientation to person, place and time. Behavior, mood, and affect are within normal limits Vital Signs: 20:34 BP 160 / 90; Pulse 83; Resp 16; Temp 97.8(O); Pulse Ox 99% on R/A; Weight 56.7 kg; dd2 21:44 BP 154 / 86; Pulse 85; Resp 17; Temp 98.3; Pulse Ox 98% on R/A; dd2 [place] Coma Score: 22:38 Eye Response: spontaneous(4). Motor Response: obeys commands(6). Verbal Response: sp4 oriented(5). Total: 15. MDM: 20:39 Medical Screening Exam initiated sp4 22:38 Differential diagnosis: acute pericarditis, anxiety, chest wall pain, cholecystitis, sp4 esophagitis, gastritis. Data reviewed: vital signs, nurses notes, old medical records. ED course: Based on the risk assessment and history of prior visits patient is stable for discharge home.. Administered Medications: 21:42 Drug: Ketorolac PO 10 mg PO once Route: PO; dd2 21:50 Follow up: Response: Medication administered at discharge. dd2 21:42 Drug: Methocarbamol PO 1500 mg PO once Route: PO; dd2 21:50 Follow up: Response: Medication administered at discharge. dd2 Disposition Summary: 07/15/24 21:06 Discharge Ordered Notes: Location: Home sp4 Problem: new sp4 Symptoms: have improved sp4 Condition: Stable sp4 Diagnosis - Generalized anxiety disorder sp4 - Chest pain, unspecified sp4 Followup: sp4 - With: Private Physician - When: 7 - 10 days - Reason: Recheck today's complaints Discharge Instructions: - Discharge Summary Sheet sp4 - Nonspecific Chest Pain, Adult, [id number] sp4 Forms: - Patient Portal Instructions sp4 Signatures: Uriel Cannon MD MD sp4 MAGGIE GIBSON RN RN dd2
[2024-07-15] MEDS ORDERED: KETOROLAC 10 MG TAB ONE (21:40)
[2024-07-15] MEDS ORDERED: methocarbamoL 750 MG TAB ONE (21:41)
[2024-07-15 22:10] VITALS: BP 154/86; TEMP 98.3; O2SAT 98
== END 2024-07-15 21:49 | disposition home or self-care (01) ==
LOC: ER 20:31
DX: F41.1 Generalized anxiety disorder (principal); I10 Essential (primary) hypertension; I25.2 Old myocardial infarction

== ENCOUNTER 2024-07-16 20:56 | Emergency (ER) | payer OTHER ==
--- NOTE | 2024-07-16 21:14 | EDPHYS ---
Physician Documentation [facility] Name: Geetha Khan Age: 49 yrs Sex: Female : 1975 Arrival Date: 07/16/2024 Time: 20:56 Bed IW6 Private MD: ED Physician Hoa Eddy HPI: 07/16 21:10 This 49 yrs old Female presents to ER via Unassigned with complaints of right shoulder sp3 pain. 21:10 49-year-old female well-known to the ED with multiple past medical problems presents sp3 with right shoulder pain by EMS. Please see my note from prior visits to document full prior medical history. Patient is able to move her right shoulder without any difficulty. She denies any chest pain, shortness of breath, or any other aspect of review of systems at this time.. Historical: - Allergies: 21:12 Aspirin; ha1 21:12 CRANBERRY; ha1 21:12 FISH PRODUCT DERIVATIVES; ha1 21:12 GRAPEFRUIT; ha1 21:12 mushroom; ha1 21:12 SHELLFISH; ha1 - PMHx: 21:12 Cerebrovascular accident; Chronic obstructive lung disease; Hypertensive disorder; Left ha1 sided paralysis post CVA; Myocardial infarction; Seizure; - Immunization history:: Adult Immunizations up to date. - Infectious Disease History:: Denies. - Social history:: Smoking status: Patient reports the use of cigarette tobacco products, smokes one pack cigarettes per day. ROS: 21:11 Constitutional: Negative for fever, chills, and weight loss, Eyes: Negative for injury, sp3 pain, redness, and discharge, ENT: Negative for injury, pain, and discharge, Neck: Negative for injury, pain, and swelling, Cardiovascular: Negative for chest pain, palpitations, and edema, Respiratory: Negative for shortness of breath, cough, wheezing, and pleuritic chest pain, Abdomen/GI: Negative for abdominal pain, nausea, vomiting, diarrhea, and constipation, Back: Negative for injury and pain, Skin: Negative for injury, rash, and discoloration, Neuro: Negative for headache, weakness, numbness, tingling, and seizure, Psych: Negative for depression, anxiety, suicide ideation, homicidal ideation, and hallucinations, Allergy/Immunology: Negative for hives, rash, and allergies, Endocrine: Negative for neck swelling, polydipsia, polyuria, polyphagia, and marked weight changes, Hematologic/Lymphatic: Negative for swollen nodes, abnormal bleeding, and unusual bruising, 21:11 All other systems are negative, Exam: 21:12 Constitutional: This is a well developed, well nourished patient who is awake, alert, sp3 and in no acute distress. Head/Face: Normocephalic, atraumatic. Eyes: Pupils equal round and reactive to light, extra-ocular motions intact. Lids and lashes normal. Conjunctiva and sclera are non-icteric and not injected. Cornea within normal limits. Periorbital areas with no swelling, redness, or edema. ENT: Nares patent. No nasal discharge, no septal abnormalities noted. External auditory canals are clear. Oropharynx with no redness, swelling, or masses, exudates, or evidence of obstruction, uvula midline. Mucous membranes moist. Neck: Trachea midline, no thyromegaly or masses palpated, and no cervical lymphadenopathy. Supple, full range of motion without nuchal rigidity, or vertebral point tenderness. No Meningismus. Chest/axilla: Normal chest wall appearance and motion. Nontender with no deformity. No lesions are appreciated. Cardiovascular: Regular rate and rhythm with a normal S1 and S2. No gallops, murmurs, or rubs. Normal PMI, no JVD. No pulse deficits. Respiratory: Lungs have equal breath sounds bilaterally, clear to auscultation and percussion. No rales, rhonchi or wheezes noted. No increased work of breathing, no retractions or nasal flaring. Abdomen/GI: Soft, non-tender, with normal bowel sounds. No distension or tympany. No guarding or rebound. No evidence of tenderness throughout. Back: No spinal tenderness. No costovertebral tenderness. Full range of motion. Skin: Warm, dry with normal turgor. Normal color with no rashes, no lesions, and no evidence of cellulitis. MS/ Extremity: Pulses equal, no cyanosis. Neurovascular intact. Full, normal range of motion. Neuro: Awake and alert, GCS 15, oriented to person, place, time, and situation. Cranial nerves II-XII grossly intact. Motor strength 5/5 in all extremities. Sensory grossly intact. Cerebellar exam normal. Normal gait. Psych: Awake, alert, with orientation to person, place and time. Behavior, mood, and affect are within normal limits. Vital Signs: 21:09 BP 122 / 64; Pulse 85; Resp 17 S; Temp 97.9(O); Pulse Ox 100% on R/A; Weight 68.04 kg; ha1 Height 5 ft. 3 in. ; 21:09 Body Mass Index 26.57 (68.04 kg, 160.02 cm) ha1 MDM: 21:09 Medical Screening Exam initiated sp3 21:12 Data reviewed: vital signs, nurses notes, old medical records. ED course: 49-year-old sp3 female with right shoulder pain. I have ruled out all critical illness, acute coronary syndrome, PE or any other critical process clinically. Patient is moving right shoulder without difficulty and currently has no symptoms. We will discharge her home at this time as no further intervention is indicated at this time.. Administered Medications: No medications were administered Disposition Summary: 07/16/24 21:13 Discharge Ordered Notes: Location: Home sp3 Condition: Stable sp3 Diagnosis - Right shoulder pain, chronic pain sp3 Followup: sp3 - With: Private Physician - When: Upon discharge from the Emergency Department - Reason: Continuance of care Discharge Instructions: - Discharge Summary Sheet sp3 - Chronic Pain, Adult sp3 Forms: - Medication Reconciliation Form sp3 - Antibiotic Education sp3 - Prescription Opioid Use sp3 - Patient Portal Instructions sp3 - Leadership Thank You Letter sp3 Signatures: Hoa Eddy MD MD sp3 Aydee Ulrich, RN RN ha1
--- NOTE | 2024-07-16 21:14 | ER ---
Nurse's Notes [facility] Name: Geetha Khan Age: 49 yrs Sex: Female : 1975 Arrival Date: 07/16/2024 Time: 20:56 Bed IW6 Private MD: Diagnosis: Right shoulder pain, chronic pain Presentation: 07/16 21:09 Chief complaint: EMS states: left shoulder pain. Coronavirus screen: Client denies ha1 travel out of the [place] in the last 14 days. Ebola Screen: No symptoms or risks identified at this time. Initial Sepsis Screen: Does the patient meet any 2 criteria? No. Patient's initial sepsis screen is negative. Does the patient have a suspected source of infection? No. Patient's initial sepsis screen is negative. Risk Assessment: Do you want to hurt yourself or someone else? Patient reports no desire to harm self or others. 21:09 Method Of Arrival: EMS: [facility] ha1 21:09 Acuity: CORRINA 5 ha1 Triage Assessment: 21:12 General: Appears comfortable, Behavior is calm, cooperative. Pain: Complains of pain in ha1 left shoulder Pain currently is 5 out of 10 on a pain scale. Quality of pain is described as aching. Neuro: Level of Consciousness is awake, alert, obeys commands, Oriented to person, place, time, situation. Cardiovascular: Patient's skin is warm and dry. Respiratory: Airway is patent Respiratory effort is even, unlabored, Respiratory pattern is regular, symmetrical. Derm: Skin is pink, warm \T\ dry. Musculoskeletal: Reports pain in left shoulder. Historical: - Allergies: 21:12 Aspirin; ha1 21:12 CRANBERRY; ha1 21:12 FISH PRODUCT DERIVATIVES; ha1 21:12 GRAPEFRUIT; ha1 21:12 mushroom; ha1 21:12 SHELLFISH; ha1 - PMHx: 21:12 Cerebrovascular accident; Chronic obstructive lung disease; Hypertensive disorder; Left ha1 sided paralysis post CVA; Myocardial infarction; Seizure; - Immunization history:: Adult Immunizations up to date. - Infectious Disease History:: Denies. - Social history:: Smoking status: Patient reports the use of cigarette tobacco products, smokes one pack cigarettes per day. Screenin:15 [facility] ED Fall Risk Assessment (Adult) History of falling in the last 3 months, ha1 including since admission Yes- single mechanical fall (1 pt) Confusion or Disorientation No (0 pts) Intoxicated or Sedated No (0 pts) Impaired Gait Yes (1 pt) Mobility Assist Device Used Yes (1 pt) Altered Elimination No (0 pt) Score/Fall Risk Level 3 or more points = High Risk Oriented to surroundings, Maintained a safe environment, Hourly rounding (assess needs \T\ fall precautionary measures) done. Abuse screen: Denies threats or abuse. Denies injuries from another. Nutritional screening: No deficits noted. Tuberculosis screening: No symptoms or risk factors identified. Vital Signs: 21:09 BP 122 / 64; Pulse 85; Resp 17 S; Temp 97.9(O); Pulse Ox 100% on R/A; Weight 68.04 kg; ha1 Height 5 ft. 3 in. ; 21:09 Body Mass Index 26.57 (68.04 kg, 160.02 cm) ha1 ED Course: 21:05 Patient arrived in ED. sp3 21:05 Hoa Eddy MD is Attending Physician. sp3 21:12 Triage completed. ha1 21:15 Arm band placed on right wrist. ha1 21:15 No provider procedures requiring assistance completed. Patient did not have IV access ha1 during this emergency room visit. 21:16 Patient has correct armband on for positive identification. Provided Education on: ha1 follow ups . Administered Medications: No medications were administered Medication: 21:16 VIS not applicable for this client. ha1 Outcome: 21:13 Discharge ordered by . sp3 21:15 Discharged to home via wheelchair, ha1 21:15 Condition: stable 21:15 Discharge instructions given to patient, Instructed on discharge instructions, follow up and referral plans. Demonstrated understanding of instructions, follow-up care, 21:16 Patient left the ED. ha1 Signatures: Hoa Eddy MD MD sp3 Aydee Ulrich RN RN ha1
[2024-07-16 22:25] VITALS: BP 122/64; TEMP 97.9; O2SAT 100
== END 2024-07-16 21:16 | disposition home or self-care (01) ==
LOC: ER 20:56
DX: G89.29 Other chronic pain (principal); F17.210 Nicotine dependence, cigarettes, uncomplicated
CPT/HCPCS: 99283

== ENCOUNTER 2024-07-17 20:38 | Emergency (ER) | payer OTHER ==
--- NOTE | 2024-07-17 21:01 | EDPHYS ---
Physician Documentation [facility] Name: Geetha Khan Age: 49 yrs Sex: Female : 1975 Arrival Date: 07/17/2024 Time: 20:38 Bed IW1 Private MD: ED Physician Hoa Eddy HPI: 07/17 20:59 This 49 yrs old Female presents to ER via Unassigned with complaints of body pain. sp3 20:59 49-year-old female well-known to the ED with multiple documented past visits. Please sp3 see my prior notes for past medical documentation. She was seen by me yesterday. She presents today for body aches. Vital signs are normal. Patient does not have any other symptoms.. Historical: - Allergies: 21:12 Aspirin; lg3 21:12 CRANBERRY; lg3 21:12 FISH PRODUCT DERIVATIVES; lg3 21:12 GRAPEFRUIT; lg3 21:12 mushroom; lg3 21:12 SHELLFISH; lg3 - PMHx: 21:12 Cerebrovascular accident; Chronic obstructive lung disease; Hypertensive disorder; Left lg3 sided paralysis post CVA; Myocardial infarction; Seizure; - Immunization history:: Adult Immunizations up to date. - Infectious Disease History:: Denies. - Social history:: Smoking status: Patient reports the use of cigarette tobacco products, smokes one pack cigarettes per day. Patient/guardian denies using alcohol, street drugs. ROS: 21:00 Constitutional: Negative for fever, chills, and weight loss, Eyes: Negative for injury, sp3 pain, redness, and discharge, Neck: Negative for injury, pain, and swelling, Cardiovascular: Negative for chest pain, palpitations, and edema, Respiratory: Negative for shortness of breath, cough, wheezing, and pleuritic chest pain, Abdomen/GI: Negative for abdominal pain, nausea, vomiting, diarrhea, and constipation, MS/Extremity: Negative for injury and deformity, Skin: Negative for injury, rash, and discoloration, Neuro: Negative for headache, weakness, numbness, tingling, and seizure, Psych: Negative for depression, anxiety, suicide ideation, homicidal ideation, and hallucinations, Allergy/Immunology: Negative for hives, rash, and allergies, Endocrine: Negative for neck swelling, polydipsia, polyuria, polyphagia, and marked weight changes, 21:00 All other systems are negative, Exam: 21:00 Constitutional: This is a well developed, well nourished patient who is awake, alert, sp3 and in no acute distress. Head/Face: Normocephalic, atraumatic. Neck: Trachea midline, no thyromegaly or masses palpated, and no cervical lymphadenopathy. Supple, full range of motion without nuchal rigidity, or vertebral point tenderness. No Meningismus. Chest/axilla: Normal chest wall appearance and motion. Nontender with no deformity. No lesions are appreciated. Cardiovascular: Regular rate and rhythm with a normal S1 and S2. No gallops, murmurs, or rubs. Normal PMI, no JVD. No pulse deficits. Respiratory: Lungs have equal breath sounds bilaterally, clear to auscultation and percussion. No rales, rhonchi or wheezes noted. No increased work of breathing, no retractions or nasal flaring. Abdomen/GI: Soft, non-tender, with normal bowel sounds. No distension or tympany. No guarding or rebound. No evidence of tenderness throughout. Back: No spinal tenderness. No costovertebral tenderness. Full range of motion. Skin: Warm, dry with normal turgor. Normal color with no rashes, no lesions, and no evidence of cellulitis. Neuro: Awake and alert, GCS 15, oriented to person, place, time, and situation. Cranial nerves II-XII grossly intact. Motor strength 5/5 in all extremities. Sensory grossly intact. Cerebellar exam normal. Normal gait. Psych: Awake, alert, with orientation to person, place and time. Behavior, mood, and affect are within normal limits. 21:00 Musculoskeletal/extremity: Vital Signs: 21:18 BP 130 / 68; Pulse 81; Resp 16 S; Temp 98.2(O); Pulse Ox 100% on R/A; Weight 68.04 kg lg3 (R); Height 5 ft. 3 in. (R); 21:18 Body Mass Index 26.57 (68.04 kg, 160.02 cm) lg3 MDM: 20:59 Medical Screening Exam initiated sp3 21:00 Data reviewed: vital signs, nurses notes, EMS record. ED course: Patient has no medical sp3 condition that is emergent. She will be discharged home at this time.. Administered Medications: No medications were administered Disposition Summary: 07/17/24 21:01 Discharge Ordered Notes: Location: Home sp3 Condition: Stable sp3 Diagnosis - Body aches, malingering sp3 Followup: sp3 - With: Private Physician - When: Upon discharge from the Emergency Department - Reason: Continuance of care Discharge Instructions: - Discharge Summary Sheet sp3 - Chronic Pain, Adult sp3 Forms: - Medication Reconciliation Form sp3 - Antibiotic Education sp3 - Prescription Opioid Use sp3 - Patient Portal Instructions sp3 - Leadership Thank You Letter sp3 Signatures: Lauren Heath RN RN lg3 Hoa Eddy MD MD sp3
--- NOTE | 2024-07-17 21:01 | ER ---
Nurse's Notes [facility] Name: Geetha Khan Age: 49 yrs Sex: Female : 1975 Arrival Date: 07/17/2024 Time: 20:38 Bed IW1 Private MD: Diagnosis: Body aches, malingering Presentation: 07/17 20:38 Chief complaint: EMS states: toned out for body aches X1 HR. Coronavirus screen: Client lg3 denies travel out of the [place] in the last 14 days. At this time, the client does not indicate any symptoms associated with coronavirus-19. Ebola Screen: No symptoms or risks identified at this time. Risk Assessment: Do you want to hurt yourself or someone else? Patient reports no desire to harm self or others. Onset of symptoms was July 17, 2024. 20:38 Method Of Arrival: EMS: [facility] lg3 20:38 Acuity: CORRINA 4 lg3 20:40 Note pt called from lobby. no response. lg3 20:58 Note pt called from lobby. no response. pt witnessed outside smoking. provider notified.lg3 21:15 Note pt called from lobby. no response. provider notified. lg3 21:17 Initial Sepsis Screen: Does the patient meet any 2 criteria?. lg3 21:18 Initial Sepsis Screen: Does the patient have a suspected source of infection? No. lg3 Patient's initial sepsis screen is negative. Triage Assessment: 21:12 General: Appears in no apparent distress. comfortable, Behavior is calm, cooperative. lg3 Pain: Complains of pain in all over. EENT: No deficits noted. Neuro: No deficits noted. Mullen Agitation-Sedation Scale (RASS): 0 - Alert and Calm Level of Consciousness is awake, alert, obeys commands, Oriented to person, place, time, situation. Cardiovascular: No deficits noted. Capillary refill < 3 seconds Clubbing of nail beds is absent JVD is absent Patient's skin is warm and dry. Respiratory: No deficits noted. Airway is patent Respiratory effort is even, unlabored, Respiratory pattern is regular, symmetrical. GI: No deficits noted. : No deficits noted. Derm: No deficits noted. Skin is intact, is healthy with good turgor, Skin is dry, Skin is normal, Skin temperature is warm. Musculoskeletal: No deficits noted. Circulation, motion, and sensation intact. Range of motion: intact in all extremities. Historical: - Allergies: 21:12 Aspirin; lg3 21:12 CRANBERRY; lg3 21:12 FISH PRODUCT DERIVATIVES; lg3 21:12 GRAPEFRUIT; lg3 21:12 mushroom; lg3 21:12 SHELLFISH; lg3 - PMHx: 21:12 Cerebrovascular accident; Chronic obstructive lung disease; Hypertensive disorder; Left lg3 sided paralysis post CVA; Myocardial infarction; Seizure; - Immunization history:: Adult Immunizations up to date. - Infectious Disease History:: Denies. - Social history:: Smoking status: Patient reports the use of cigarette tobacco products, smokes one pack cigarettes per day. Patient/guardian denies using alcohol, street drugs. Screenin:38 [facility] ED Fall Risk Assessment (Adult) History of falling in the last 3 months, lg3 including since admission No falls in past 3 months (0 pts) Confusion or Disorientation No (0 pts) Intoxicated or Sedated No (0 pts) Impaired Gait Yes (1 pt) Mobility Assist Device Used Yes (1 pt) Altered Elimination No (0 pt) Score/Fall Risk Level 0 - 2 = Low Risk Oriented to surroundings, Maintained a safe environment, Educated pt \T\ family on fall prevention, incl call for assistance when getting out of bed, Assessed \T\ reinforced patient's understanding of fall precautions. Abuse screen: Denies threats or abuse. Denies injuries from another. Nutritional screening: No deficits noted. Tuberculosis screening: No symptoms or risk factors identified. Assessment: 20:38 General: see triage assessment. lg3 Vital Signs: 21:18 BP 130 / 68; Pulse 81; Resp 16 S; Temp 98.2(O); Pulse Ox 100% on R/A; Weight 68.04 kg lg3 (R); Height 5 ft. 3 in. (R); 21:18 Body Mass Index 26.57 (68.04 kg, 160.02 cm) lg3 ED Course: 20:38 Patient has correct armband on for positive identification. lg3 20:52 Patient arrived in ED. kmf 20:57 Hoa Eddy MD is Attending Physician. sp3 21:12 Triage completed. lg3 21:12 Arm band placed on right wrist. lg3 21:16 No provider procedures requiring assistance completed. Patient did not have IV access lg3 during this emergency room visit. Administered Medications: No medications were administered Medication: 20:38 VIS not applicable for this client. lg3 Outcome: 21:01 Discharge ordered by . sp3 21:16 Discharged to home via wheelchair, lg3 21:16 Condition: stable 21:16 Discharge instructions given to patient, Instructed on discharge instructions, follow up and referral plans. Demonstrated understanding of instructions, follow-up care, 21:19 Patient left the ED. lg3 Signatures: Lauren Heath RN RN lg3 Hoa Eddy MD MD sp3 Phuong Day [facility]
[2024-07-17 21:25] VITALS: BP 130/68; TEMP 98.2; O2SAT 100
== END 2024-07-17 21:19 | disposition home or self-care (01) ==
LOC: ER 20:38
DX: R52 Pain, unspecified (principal); Z76.5 Malingerer [conscious simulation]; F17.210 Nicotine dependence, cigarettes, uncomplicated
CPT/HCPCS: 99283

== ENCOUNTER 2024-07-18 20:30 | Emergency (ER) | payer OTHER ==
[2024-07-18 21:51] LABS: Specific Gravity 1.022 (1.005-1.030); Urine Bacteria 20-50 /HPF (<20); Urine Bilirubin NEGATIVE (Negative); Urine Blood Negative (Negative); Urine Clarity Extremely Turbid (Clear); Urine Color Yellow (Yellow); Urine Glucose NEGATIVE (Negative); Urine Ketones NEGATIVE (Negative); Urine Micro Reflex YN NO BILL MICROSCOPIC; Urine Mucus Slight /HPF (None Seen); Urine Nitrite 2+ (Negative); Urine Protein 1+ (Negative); Urine RBC None Seen /HPF (None Seen); Urine Urobilinogen Normal (Normal); Urine WBC >50 /HPF (<5); Urine Yeast (Budding) Occasional /HPF (None Seen); Urine pH 8.5 (5.0-7.0)
--- NOTE | 2024-07-18 22:41 | ER ---
Nurse's Notes [facility] Name: Geetha Khan Age: 49 yrs Sex: Female : 1975 Arrival Date: 07/18/2024 Time: 20:30 Bed 19 Private MD: Diagnosis: UTI/ Urinary tract infection, site not specified Presentation: 07/18 20:49 Chief complaint: EMS states: TONED OUT TO PATIENT'S HOME FOR BACK PAIN. PT STATES THAT cm10 THIS IS THE SAME PAIN THAT SHE WAS SEEN HERE FOR YESTERDAY. Coronavirus screen: Client denies travel out of the [place] in the last 14 days. Ebola Screen: Patient denies travel to an Ebola-affected area in the 21 days before illness onset. Initial Sepsis Screen: Does the patient meet any 2 criteria? No. Patient's initial sepsis screen is negative. Does the patient have a suspected source of infection? No. Patient's initial sepsis screen is negative. Risk Assessment: Do you want to hurt yourself or someone else? Patient reports no desire to harm self or others. Onset of symptoms is unknown. 20:49 Method Of Arrival: EMS: [facility] cm10 20:49 Acuity: CORRINA 4 cm10 Triage Assessment: 20:52 General: Appears in no apparent distress. comfortable, Behavior is calm, cooperative. cm10 Neuro: No deficits noted. Level of Consciousness is awake, alert, obeys commands, Oriented to person, place, time, situation, Appropriate for age. Respiratory: No deficits noted. Airway is patent Respiratory effort is even, unlabored, Respiratory pattern is regular, symmetrical. 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 - Infectious Disease History:: Denies. - Social history:: Smoking status: Patient/guardian denies using tobacco. - Family history:: not pertinent. Screenin:00 [facility] ED Fall Risk Assessment (Adult) History of falling in the last 3 months, kj2 including since admission Confusion or Disorientation No (0 pts) Intoxicated or Sedated No (0 pts) Impaired Gait Yes (1 pt) Mobility Assist Device Used Yes (1 pt) Altered Elimination No (0 pt) Score/Fall Risk Level 0 - 2 = Low Risk Maintained a safe environment, Hourly rounding (assess needs \T\ fall precautionary measures) done. Abuse screen: Denies threats or abuse. Denies injuries from another. Nutritional screening: No deficits noted. Tuberculosis screening: Assessment: 21:00 General: Appears in no apparent distress. Behavior is calm, cooperative. Pain:. Neuro: kj2 Level of Consciousness is awake, alert, obeys commands, Oriented to person, place, time, situation. Cardiovascular: Patient's skin is warm and dry. Respiratory: Airway is patent Respiratory effort is even, unlabored. GI: No signs and/or symptoms were reported involving the gastrointestinal system. 21:00 : Reports pain in lower back. kj2 22:04 Reassessment: Patient appears in no apparent distress at this time. Patient and/or kj2 family updated on plan of care and expected duration. Pain level reassessed. Patient is alert, oriented x 3, equal unlabored respirations, skin warm/dry/pink. 23:15 Reassessment: Patient appears in no apparent distress at this time. Patient and/or kj2 family updated on plan of care and expected duration. Pain level reassessed. Patient is alert, oriented x 3, equal unlabored respirations, skin warm/dry/pink. Vital Signs: 20:49 BP 142 / 99; Pulse 92; Resp 18; Temp 97.9(O); Pulse Ox 100% on R/A; Weight 72.57 kg; cm10 Height 5 ft. 2 in. ; Pain 9/10; 22:05 BP 145 / 95; Pulse 88; Resp 20; Pulse Ox 100% on R/A; kj2 23:15 BP 144 / 88; Pulse 86; Resp 20; Temp 98; Pulse Ox 100% on R/A; kj2 20:49 Body Mass Index 29.26 (72.57 kg, 157.48 cm) cm10 20:49 Pain Scale: Adult cm10 ED Course: 20:30 Patient arrived in ED. jj6 20:43 Kye De Anda MD is Attending Physician. rt 20:51 Triage completed. cm10 20:52 Arm band placed on right wrist. Patient placed in waiting room. cm10 21:34 Hortencia Maldonado, RN is Primary Nurse. kj2 21:39 UA W/ Microscopic Sent. kj2 22:04 Patient has correct armband on for positive identification. Provided Education on: call kj2 light. 23:28 No provider procedures requiring assistance completed. Patient did not have IV access kj2 during this emergency room visit. Administered Medications: 23:27 Drug: Cephalexin PO 500 mg PO once Route: PO; kj2 23:27 Follow up: Response: Medication administered at discharge. kj2 Medication: 22:04 VIS not applicable for this client. kj2 Outcome: 22:41 Discharge ordered by . rt 23:29 Discharged to home via wheelchair, with family, kj2 23:29 Condition: stable 23:29 Discharge instructions given to patient, family, Instructed on discharge instructions, follow up and referral plans. Demonstrated understanding of instructions, follow-up care, 23:29 Patient left the ED. kj2 Signatures: Bia Garcia jj6 Kye De Anda MD MD rt Kelsey Khan, RN RN cm10 Hortencia Maldonado, RN RN kj2
--- NOTE | 2024-07-18 22:41 | EDPHYS ---
Physician Documentation [facility] Name: Geetha Khan Age: 49 yrs Sex: Female : 1975 Arrival Date: 07/18/2024 Time: 20:30 Bed 19 Private MD: ED Physician Kye De Anda HPI: 07/19 01:28 This 49 yrs old Female presents to ER via EMS with complaints of Pains Meds. rt 01:28 Patient well-known to this emergency department presents to the ED with low back pain. rt Patient states that this was exactly. Brought her in yesterday. States that she is concerned for a kidney infection. Denies other acute complaints at this time, symptoms are mild in severity, no other aggravating or alleviating factors.. 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 - Infectious Disease History:: Denies. - Social history:: Smoking status: Patient/guardian denies using tobacco. - Family history:: not pertinent. ROS: 07/19 01:28 Constitutional: Negative for fever, chills, and weight loss, Cardiovascular: Negative rt for chest pain, palpitations, and edema, Respiratory: Negative for shortness of breath, cough, wheezing, and pleuritic chest pain, Abdomen/GI: Negative for abdominal pain, nausea, vomiting, diarrhea, and constipation, MS/Extremity: Negative for injury and deformity, Skin: Negative for injury, rash, and discoloration, Back: Positive for pain at rest, Negative for injury or acute deformity, Exam: 01:28 Constitutional: This is a well developed, well nourished patient who is awake, alert, rt and in no acute distress. Head/Face: Normocephalic, atraumatic. Chest/axilla: Normal chest wall appearance and motion. Nontender with no deformity. No lesions are appreciated. Cardiovascular: Regular rate and rhythm with a normal S1 and S2. No gallops, murmurs, or rubs. Normal PMI, no JVD. No pulse deficits. Respiratory: Lungs have equal breath sounds bilaterally, clear to auscultation and percussion. No rales, rhonchi or wheezes noted. No increased work of breathing, no retractions or nasal flaring. Abdomen/GI: Soft, non-tender, with normal bowel sounds. No distension or tympany. No guarding or rebound. No evidence of tenderness throughout. Skin: Warm, dry with normal turgor. Normal color with no rashes, no lesions, and no evidence of cellulitis. MS/ Extremity: Pulses equal, no cyanosis. Neurovascular intact. Full, normal range of motion. 01:28 Back: Mild lower lumbar tenderness, no costovertebral angle tenderness, Vital Signs: 07/18 20:49 BP 142 / 99; Pulse 92; Resp 18; Temp 97.9(O); Pulse Ox 100% on R/A; Weight 72.57 kg; cm10 Height 5 ft. 2 in. ; Pain 9/10; 22:05 BP 145 / 95; Pulse 88; Resp 20; Pulse Ox 100% on R/A; kj2 23:15 BP 144 / 88; Pulse 86; Resp 20; Temp 98; Pulse Ox 100% on R/A; kj2 20:49 Body Mass Index 29.26 (72.57 kg, 157.48 cm) cm10 20:49 Pain Scale: Adult cm10 MDM: 20:50 Medical Screening Exam initiated rt 07/19 01:28 Differential Diagnosis Mechanical back pain, UTI. Data reviewed: vital signs, nurses rt notes, lab test result(s). Test considered but Not performed: Other Details Patient is no costovertebral angle tenderness, vital signs are stable. I have a low suspicion clinically for pyelonephritis, ureterolithiasis. She is found have a UTI, however, I do not believe that she requires labs, CT evaluation. Patient has had more than 10 CT scans within the past year, believe that the risk of further radiation dose is greater than the risk of missed pathology.. Care significantly affected by the following chronic conditions: Hypertension, Chronic Obstructive Pulmonary Disease. Counseling: I had a detailed discussion with the patient and/or guardian regarding the historical points, exam findings, and any diagnostic results supporting the discharge/admit diagnosis, lab results, the need for outpatient follow up. 07/18 20:52 Order name: UA W/ Microscopic; Complete Time: 21:52 rt Administered Medications: 07/18 23:27 Drug: Cephalexin PO 500 mg PO once Route: PO; kj2 23:27 Follow up: Response: Medication administered at discharge. kj2 Disposition Summary: 07/18/24 22:41 Discharge Ordered Notes: Location: Home rt Problem: new rt Symptoms: are unchanged rt Condition: Stable rt Diagnosis - UTI/ Urinary tract infection, site not specified rt Followup: rt - With: Private Physician - When: 2 - 3 days - Reason: Discharge Instructions: - Discharge Summary Sheet rt - Urinary Tract Infection, Adult rt Forms: - Medication Reconciliation Form rt - Antibiotic Education rt - Prescription Opioid Use rt - Patient Portal Instructions rt - Leadership Thank You Letter rt Prescriptions: - cefpodoxime 200 mg Oral tablet - take 1 tablet ORAL route every 12 hours with food; 14 tablet; Refills: 0, rt Product Selection Permitted Signatures: Dispatcher [employer] Kye Allen MD MD rt Kelsey Khan, RN RN cm10 Hortencia Maldonado, YANETH RN kj2
[2024-07-18] MEDS ORDERED: CEPHALEXIN 250 MG CAP ONE (23:15)
[2024-07-19 02:11] VITALS: O2SAT 100
[2024-07-19 02:14] VITALS: BP 144/88; TEMP 98
== END 2024-07-18 23:29 | disposition home or self-care (01) ==
LOC: ER 20:30
DX: N39.0 Urinary tract infection, site not specified (principal)
CPT/HCPCS: 81001; 99284

== ENCOUNTER 2024-07-20 20:34 | Emergency (ER) | payer OTHER ==
[2024-07-20] MEDS ORDERED: ACETAMINOPHEN 500 MG TAB ONE (20:41)
[2024-07-20] MEDS ORDERED: KETOROLAC 30 MG/ML INJ ONE (20:42)
[2024-07-20] MEDS ORDERED: methocarbamoL 750 MG TAB ONE (20:42)
[2024-07-20] MEDS ORDERED: PROMETHAZINE 25 MG TABLET ONE (20:42)
--- NOTE | 2024-07-20 21:34 | EDPHYS ---
Physician Documentation [facility] Name: Geetha Khan Age: 49 yrs Sex: Female : 1975 Arrival Date: 07/20/2024 Time: 20:34 Bed 19 Private MD: ED Physician Uriel Cannon HPI: 07/20 20:37 This 49 yrs old Female presents to ER via Unassigned with complaints of Fall sp4 Injury, Shoulder Pain. 20:39 Patient is a very pleasant 49-year-old female with history of hemorrhagic CVA and sp4 left-sided hemiparesis. Patient presents with EMS for the complaint of a left shoulder pain via recent fall.. 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 - Infectious Disease History:: Denies. - Family history:: not pertinent. - Social history:: Smoking status: Patient reports the use of cigarette tobacco products, denies chronic smoking, but will smoke occasionally. ROS: 20:41 Constitutional: Negative for fever, chills, and weight loss, positive for left shoulder sp4 pain 20:41 All other systems are negative, Exam: 07/21 04:19 Constitutional: This is a well developed, well nourished patient who is awake, alert, sp4 chronic left-sided hemiparesis. Head/Face: Normocephalic, atraumatic. Eyes: Pupils equal round and reactive to light, extra-ocular motions intact. Lids and lashes normal. Conjunctiva and sclera are not injected. Cornea within normal limits. Periorbital areas with no swelling, redness, or edema. ENT: Nares patent. No nasal discharge, no septal abnormalities noted. Tympanic membranes are normal and external auditory canals are clear. Oropharynx with no redness, swelling, or masses, exudates, or evidence of obstruction, uvula midline. Mucous membranes moist. Neck: Trachea midline, no thyromegaly or masses palpated, and no cervical lymphadenopathy. Supple, full range of motion without nuchal rigidity, or vertebral point tenderness. Chest/axilla: Normal chest wall appearance and motion. Nontender with no deformity. No lesions are appreciated. Cardiovascular: Regular rate and rhythm with a normal S1 and S2. No gallops, murmurs, or rubs. Normal PMI, no JVD. No pulse deficits. Respiratory: Lungs have equal breath sounds bilaterally, clear to auscultation and percussion. No rales, rhonchi or wheezes noted. No increased work of breathing, no retractions or nasal flaring. Abdomen/GI: Soft, with normal bowel sounds. No distension or tympany. No guarding or rebound. No evidence of tenderness throughout. Back: No spinal tenderness. No costovertebral tenderness. Skin: Warm, dry with normal turgor. Normal color with no rashes, no lesions, and no evidence of cellulitis. MS/ Extremity: Pulses equal, no cyanosis. Full, normal range of motion. Chronic left-sided hemiparesis, physical debility. Neuro: Awake and alert, GCS 15, oriented to person, place, time, and situation. Patient has a longstanding left-sided hemiparesis otherwise no changes Psych: Awake, alert, with orientation to person, place and time. Behavior, mood, and affect are within normal limits Vital Signs: 05 20:44 BP 135 / 89; Pulse 81; Pulse Ox 100% on R/A; af3 21:04 BP 156 / 77; Pulse 95; Resp 17; Temp 98.1; Pulse Ox 97% ; Weight 72.57 kg; Height 5 ft. me1 3 in. ; Pain 9/10; 21:30 BP 150 / 97; Pulse 79; Resp 18; Temp 98.4; Pulse Ox 99% ; me1 21:37 Pain 7/10; me1 21:37 Pain 7/10; me1 21:37 Pain 7/10; me1 21:04 Body Mass Index 28.34 (72.57 kg, 160.02 cm) me1 21:04 Pain Scale: Adult me1 21:37 Pain Scale: Adult me1 21:37 Pain Scale: Adult me1 21:37 Pain Scale: Adult me1 Peridot Coma Score: 07/21 04:19 Eye Response: spontaneous(4). Motor Response: obeys commands(6). Verbal Response: sp4 oriented(5). Total: 15. MDM: 07/20 20:52 Medical Screening Exam initiated sp4 07/21 04:19 Differential diagnosis: abrasion, closed head injury, contusion, multiple trauma, sp4 sprain, strain. Data reviewed: vital signs, nurses notes, EMS record, old medical records. ED course: Patient's pain has improved after medications. Patient has basically chronic left shoulder pain that goes through periods of acute worsening. Patient stable for discharge home.. Administered Medications: 07/20 20:49 Drug: Ketorolac IM 30 mg IM once Route: IM; Site: left deltoid; rg5 21:37 Follow up: Pain 7/10 Adult; Response: No adverse reaction; Pain is decreased me1 20:49 Drug: Acetaminophen PO 1000 mg PO once Route: PO; rg5 21:37 Follow up: Pain 7/10 Adult; Response: No adverse reaction; Pain is decreased me1 20:49 Drug: Methocarbamol PO 1500 mg PO once Route: PO; rg5 21:37 Follow up: Pain 7/10 Adult; Response: No adverse reaction; Pain is decreased me1 20:49 Drug: Promethazine PO 25 mg PO once Route: PO; rg5 21:36 Follow up: Response: No adverse reaction; Nausea is decreased me1 Disposition Summary: 07/20/24 21:33 Discharge Ordered Notes: Location: Home sp4 Problem: new sp4 Symptoms: have improved sp4 Condition: Stable sp4 Diagnosis - Pain in left shoulder sp4 - Acute exacerbation of chronic pain sp4 Followup: sp4 - With: Private Physician - When: 7 - 10 days - Reason: Recheck today's complaints Discharge Instructions: - Discharge Summary Sheet sp4 - Joint Pain sp4 Signatures: Uriel Cannon MD MD sp4 Nohemy Clark RN RN me1 Hakan Crowley RN RN rg5
--- NOTE | 2024-07-20 21:34 | ER ---
Nurse's Notes [facility] Name: Geetha Khan Age: 49 yrs Sex: Female : 1975 Arrival Date: 07/20/2024 Time: 20:34 Bed 19 Private MD: Diagnosis: Pain in left shoulder;Acute exacerbation of chronic pain Presentation: 07/20 21:04 Chief complaint: EMS states: toned out for fall out of bed. c/o pain to left shoulder. me1 9/10. Coronavirus screen: Vaccine status: Patient reports being unvaccinated. Ebola Screen: No symptoms or risks identified at this time. Initial Sepsis Screen: Does the patient meet any 2 criteria? No. Patient's initial sepsis screen is negative. Does the patient have a suspected source of infection? No. Patient's initial sepsis screen is negative. Risk Assessment: Do you want to hurt yourself or someone else? Patient reports no desire to harm self or others. Onset of symptoms was July 20, 2024. 21:04 Method Of Arrival: EMS: [facility] pr1 21:04 Acuity: CORRINA 4 me1 Triage Assessment: 21:05 General: Appears in no apparent distress. Behavior is cooperative, appropriate for age, me1 anxious, Reports c/o pain to left lateral shoulder 9/10 after falling out of bed. Pain: Complains of pain in anterior aspect of left shoulder Pain does not radiate. Pain currently is 9 out of 10 on a pain scale. Quality of pain is described as sharp, Pain began suddenly, Is continuous. EENT: No signs and/or symptoms were reported regarding the EENT system. Neuro: Level of Consciousness is awake, alert, obeys commands, Oriented to person, place, time, situation, Appropriate for age. Cardiovascular: Patient's skin is warm and dry. Respiratory: Airway is patent Respiratory effort is even, unlabored, Respiratory pattern is regular, symmetrical. GI: No signs and/or symptoms were reported involving the gastrointestinal system. : No signs and/or symptoms were reported regarding the genitourinary system. Derm: Skin is intact, is healthy with good turgor, Skin is pink, warm \T\ dry. Musculoskeletal: Range of motion: limited in left shoulder, left elbow, left hip, left knee and left ankle Reports pain in anterior aspect of left shoulder. Injury Description: fell out of bed about 3 feet off the ground. c/o pain to left shoulder. 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 - Infectious Disease History:: Denies. - Family history:: not pertinent. - Social history:: Smoking status: Patient reports the use of cigarette tobacco products, denies chronic smoking, but will smoke occasionally. Screenin:08 [facility] ED Fall Risk Assessment (Adult) History of falling in the last 3 months, me1 including since admission Yes- single mechanical fall (1 pt) Confusion or Disorientation No (0 pts) Intoxicated or Sedated No (0 pts) Impaired Gait Yes (1 pt) Mobility Assist Device Used Yes (1 pt) Altered Elimination Yes (1 pt) Score/Fall Risk Level 0 - 2 = Low Risk Maintained a safe environment, Provided non-skid footwear, Hourly rounding (assess needs \T\ fall precautionary measures) done. Abuse screen: Denies threats or abuse. Nutritional screening: No deficits noted. Tuberculosis screening: No symptoms or risk factors identified. Assessment: 21:08 General: See triage assessment. me1 Vital Signs: 20:44 BP 135 / 89; Pulse 81; Pulse Ox 100% on R/A; af3 21:04 BP 156 / 77; Pulse 95; Resp 17; Temp 98.1; Pulse Ox 97% ; Weight 72.57 kg; Height 5 ft. me1 3 in. ; Pain 9/10; 21:30 BP 150 / 97; Pulse 79; Resp 18; Temp 98.4; Pulse Ox 99% ; me1 21:37 Pain 7/10; me1 21:37 Pain 7/10; me1 21:37 Pain 7/10; me1 21:04 Body Mass Index 28.34 (72.57 kg, 160.02 cm) me1 21:04 Pain Scale: Adult me1 21:37 Pain Scale: Adult me1 21:37 Pain Scale: Adult me1 21:37 Pain Scale: Adult me1 Byhalia Coma Score: 07/21 04:19 Eye Response: spontaneous(4). Motor Response: obeys commands(6). Verbal Response: sp4 oriented(5). Total: 15. ED Course: 07/20 20:36 Patient arrived in ED. vk 20:37 Uriel Cannon MD is Attending Physician. sp4 20:40 Nohemy Clark, YANETH is Primary Nurse. me1 21:05 Triage completed. me1 21:05 Arm band placed on Patient placed in an exam room. me1 21:08 Patient has correct armband on for positive identification. Bed in low position. Call [facility] light in reach. Side rails up X2. Provided Education on: POC. Verbalized understanding.. Client placed on continuous cardiac and pulse oximetry monitoring. NIBP monitoring applied. radiation monitor on. Pulse ox on. NIBP on. 21:08 No provider procedures requiring assistance completed. me1 21:50 Patient did not have IV access during this emergency room visit. me1 Administered Medications: 20:49 Drug: Ketorolac IM 30 mg IM once Route: IM; Site: left deltoid; rg5 21:37 Follow up: Pain 7/10 Adult; Response: No adverse reaction; Pain is decreased me1 20:49 Drug: Acetaminophen PO 1000 mg PO once Route: PO; rg5 21:37 Follow up: Pain 7/10 Adult; Response: No adverse reaction; Pain is decreased me1 20:49 Drug: Methocarbamol PO 1500 mg PO once Route: PO; rg5 21:37 Follow up: Pain 7/10 Adult; Response: No adverse reaction; Pain is decreased me1 20:49 Drug: Promethazine PO 25 mg PO once Route: PO; rg5 21:36 Follow up: Response: No adverse reaction; Nausea is decreased me1 Medication: 21:08 VIS not applicable for this client. me1 Outcome: 21:33 Discharge ordered by . sp4 21:50 Discharged to home via wheelchair, with family, me1 21:50 Condition: stable 21:50 Discharge instructions given to patient, family, Instructed on discharge instructions, follow up and referral plans. Demonstrated understanding of instructions, follow-up care, 21:52 Patient left the ED. me1 Signatures: Uriel Cannon MD MD sp4 Nohemy Clark RN RN me1 Chata Gibbons Rommel, RN RN rg5 Gila Dia 3 Corrections: (The following items were deleted from the chart) 21:52 21:05 Musculoskeletal: Reports pain in anterior aspect of left shoulder me1 me1
[2024-07-21 05:11] VITALS: BP 150/97; TEMP 98.4; O2SAT 99
== END 2024-07-20 21:52 | disposition home or self-care (01) ==
LOC: ER 20:34
DX: M25.512 Pain in left shoulder (principal); G89.29 Other chronic pain; W18.30XA Fall on same level, unspecified, initial encounter
CPT/HCPCS: 96372; 99285; Q0169

== ENCOUNTER 2024-07-21 20:34 | Emergency (ER) | payer OTHER ==
[2024-07-21] MEDS ORDERED: PROMETHAZINE 25 MG TABLET ONE (20:58)
[2024-07-21] MEDS ORDERED: FAMOTIDINE 20 MG TAB ONE (20:58)
[2024-07-21] MEDS ORDERED: methocarbamoL 750 MG TAB ONE (20:58)
[2024-07-21] MEDS ORDERED: KETOROLAC 10 MG TAB ONE (20:58)
[2024-07-21] MEDS ORDERED: ACETAMINOPHEN 500 MG TAB ONE (20:58)
--- NOTE | 2024-07-21 21:58 | EDPHYS ---
Physician Documentation [facility] Name: Geetha Khan Age: 49 yrs Sex: Female : 1975 Arrival Date: 07/21/2024 Time: 20:34 Bed IW1 Private MD: ED Physician Uriel Cannon HPI: 07/21 20:42 This 49 yrs old Female presents to ER via Unassigned with complaints of chest sp4 pains. 07/22 06:06 Patient presents with acute worsening of left shoulder pain. 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 - Infectious Disease History:: Denies. - Social history:: Smoking status: Patient reports the use of cigarette tobacco products, smokes one-half pack cigarettes per day. ROS: 07/22 20:51 Constitutional: Negative for fever, chills, and weight loss, positive left shoulder sp4 pain All other systems are negative, Exam: 20:51 Constitutional: This is a well developed, well nourished patient who is awake, alert, sp4 and in no acute distress. Patient has longstanding left-sided hemiparesis Head/Face: Normocephalic, atraumatic. Eyes: Pupils equal round and reactive to light, extra-ocular motions intact. Lids and lashes normal. Conjunctiva and sclera are not injected. Cornea within normal limits. Periorbital areas with no swelling, redness, or edema. ENT: Nares patent. No nasal discharge, no septal abnormalities noted. Tympanic membranes are normal and external auditory canals are clear. Oropharynx with no redness, swelling, or masses, exudates, or evidence of obstruction, uvula midline. Mucous membranes moist. Neck: Trachea midline, no thyromegaly or masses palpated, and no cervical lymphadenopathy. Supple, full range of motion without nuchal rigidity, or vertebral point tenderness. Chest/axilla: Normal chest wall appearance and motion. Nontender with no deformity. No lesions are appreciated. Cardiovascular: Regular rate and rhythm with a normal S1 and S2. No gallops, murmurs, or rubs. Normal PMI, no JVD. No pulse deficits. Respiratory: Lungs have equal breath sounds bilaterally, clear to auscultation and percussion. No rales, rhonchi or wheezes noted. No increased work of breathing, no retractions or nasal flaring. Abdomen/GI: Soft, with normal bowel sounds. No distension or tympany. No guarding or rebound. No evidence of tenderness throughout. Back: No spinal tenderness. No costovertebral tenderness. Skin: Warm, dry with normal turgor. Normal color with no rashes, no lesions, and no evidence of cellulitis. MS/ Extremity: Pulses equal, no cyanosis. Chronic left-sided hemiparesis chronic left shoulder atrophy, there is chronic mild left shoulder subluxation. Neuro: Awake and alert, GCS 15, oriented to person, place, time, and situation. Patient has chronic left-sided hemiparesis without new findings on exam. Psych: Awake, alert, with orientation to person, place and time. Behavior, mood, and affect are within normal limits Vital Signs: 07/21 20:59 BP 149 / 111; Pulse 74; Resp 18; Temp 98.2; Pulse Ox 100% ; Weight 72.57 kg; Height 5 cp4 ft. 2 in. ; Pain 10/10; 20:59 Body Mass Index 29.26 (72.57 kg, 157.48 cm) cp4 20:59 Pain Scale: Adult cp4 Pearl Coma Score: 07/22 20:51 Eye Response: spontaneous(4). Motor Response: obeys commands(6). Verbal Response: sp4 oriented(5). Total: 15. MDM: 07/21 20:44 Medical Screening Exam initiated sp4 07/22 20:51 Differential diagnosis: esophagitis, gastritis, Left shoulder subluxation, left sp4 shoulder dislocation, left shoulder chronic arthritis. Data reviewed: vital signs, nurses notes, EMS record, old medical records. ED course: Positive for chronic left shoulder subluxation. Patient was given arm sling. Patient stable for discharge home. 07/21 21:16 Order name: Sling: left arm sling; Complete Time: 22:33 sp4 Administered Medications: 07/21 21:09 Drug: Ketorolac PO 10 mg PO once Route: PO; cp4 22:00 Follow up: Response: No adverse reaction br2 21:09 Drug: Methocarbamol PO 1500 mg PO once Route: PO; cp4 22:00 Follow up: Response: No adverse reaction br2 21:09 Drug: Promethazine PO 25 mg PO once Route: PO; cp4 22:00 Follow up: Response: No adverse reaction br2 21:09 Drug: Acetaminophen PO 1000 mg PO once Route: PO; cp4 22:33 Follow up: Response: No adverse reaction br2 21:09 Drug: Famotidine PO 20 mg PO once Route: PO; cp4 22:33 Follow up: Response: No adverse reaction br2 Disposition: 07/22 20:54 Chart complete. sp4 Disposition Summary: 07/21/24 21:57 Discharge Ordered Notes: We recommend sling for the next 2 weeks Location: Home sp4 Problem: new sp4 Symptoms: have improved sp4 Condition: Stable sp4 Diagnosis - Left shoulder chronic pain, acute exacerbation of chronic pain sp4 Followup: sp4 - With: Private Physician - When: 7 - 10 days - Reason: Recheck today's complaints Discharge Instructions: - Discharge Summary Sheet sp4 - Shoulder Pain, [id number] sp4 Forms: - Patient Portal Instructions sp4 Signatures: rUiel Cannon MD MD sp4 Yasmeen Vasquez cp4 Destiney Moura RN br2
--- NOTE | 2024-07-21 21:58 | ER ---
Nurse's Notes [facility] Name: Geetha Khan Age: 49 yrs Sex: Female : 1975 Arrival Date: 07/21/2024 Time: 20:34 Bed IW1 Private MD: Diagnosis: Left shoulder chronic pain, acute exacerbation of chronic pain Presentation: 07/21 20:59 Chief complaint: Patient states: left shoulder pain that started an hour ago. cp4 Coronavirus screen: Client denies travel out of the [place] in the last 14 days. At this time, the client does not indicate any symptoms associated with coronavirus-19. Ebola Screen: Patient negative for fever greater than or equal to 101.5 degrees Fahrenheit, and additional compatible Ebola Virus Disease symptoms Patient denies exposure to infectious person. Patient denies travel to an Ebola-affected area in the 21 days before illness onset. No symptoms or risks identified at this time. Initial Sepsis Screen: Does the patient meet any 2 criteria? HR > 90 bpm. No. Patient's initial sepsis screen is negative. Does the patient have a suspected source of infection? No. Patient's initial sepsis screen is negative. Risk Assessment: Do you want to hurt yourself or someone else?. Onset of symptoms was July 21, 2024 at 20:00. 20:59 Method Of Arrival: EMS: [facility] 20:59 Acuity: CORRINA 5 cp4 Triage Assessment: 21:03 General: Appears in no apparent distress. comfortable, Behavior is calm, cooperative, cp4 appropriate for age. Pain: Complains of pain in left shoulder Pain does not radiate. Pain currently is 10 out of 10 on a pain scale. 21:03 EENT: No signs and/or symptoms were reported regarding the EENT system. Neuro: Level of cp4 Consciousness is awake, alert, obeys commands, Oriented to person, place, time, situation. Cardiovascular: Patient's skin is warm and dry. Respiratory: Airway is patent Respiratory effort is even, unlabored. GI: No signs and/or symptoms were reported involving the gastrointestinal system. : No signs and/or symptoms were reported regarding the genitourinary system. Derm: No signs and/or symptoms reported regarding the dermatologic system. Musculoskeletal: No signs and/or symptoms reported regarding the musculoskeletal system. 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 - Infectious Disease History:: Denies. - Social history:: Smoking status: Patient reports the use of cigarette tobacco products, smokes one-half pack cigarettes per day. Screenin:05 [facility] ED Fall Risk Assessment (Adult) History of falling in the last 3 months, cp4 including since admission No falls in past 3 months (0 pts) Confusion or Disorientation No (0 pts) Intoxicated or Sedated No (0 pts) Impaired Gait Yes (1 pt) Mobility Assist Device Used No (0 pt) Altered Elimination No (0 pt) Score/Fall Risk Level 0 - 2 = Low Risk Oriented to surroundings, Maintained a safe environment, Assessed \T\ reinforced patient's understanding of fall precautions, Hourly rounding (assess needs \T\ fall precautionary measures) done. Abuse screen: Denies threats or abuse. Denies injuries from another. Nutritional screening: No deficits noted. Tuberculosis screening: No symptoms or risk factors identified. Assessment: 21:05 Reassessment: No changes from previously documented assessment. cp4 Vital Signs: 20:59 BP 149 / 111; Pulse 74; Resp 18; Temp 98.2; Pulse Ox 100% ; Weight 72.57 kg; Height 5 cp4 ft. 2 in. ; Pain 10/10; 20:59 Body Mass Index 29.26 (72.57 kg, 157.48 cm) cp4 20:59 Pain Scale: Adult cp4 Mariluz Coma Score: 05 20:51 Eye Response: spontaneous(4). Motor Response: obeys commands(6). Verbal Response: sp4 oriented(5). Total: 15. ED Course: 07/21 20:37 Patient arrived in ED. im 20:42 Uriel Cannon MD is Attending Physician. sp4 21:03 Triage completed. cp4 21:03 Arm band placed on right wrist. Patient placed in waiting room. cp4 21:05 Patient has correct armband on for positive identification. cp4 21:05 No provider procedures requiring assistance completed. Patient did not have IV access cp4 during this emergency room visit. 21:07 Yasmeen Vasquez is Primary Nurse. cp4 22:31 Sling \T\ swathe to left arm. br2 Administered Medications: 21:09 Drug: Ketorolac PO 10 mg PO once Route: PO; cp4 22:00 Follow up: Response: No adverse reaction br2 21:09 Drug: Methocarbamol PO 1500 mg PO once Route: PO; cp4 22:00 Follow up: Response: No adverse reaction br2 21:09 Drug: Promethazine PO 25 mg PO once Route: PO; cp4 22:00 Follow up: Response: No adverse reaction br2 21:09 Drug: Acetaminophen PO 1000 mg PO once Route: PO; cp4 22:33 Follow up: Response: No adverse reaction br2 21:09 Drug: Famotidine PO 20 mg PO once Route: PO; cp4 22:33 Follow up: Response: No adverse reaction br2 Medication: 21:05 VIS not applicable for this client. cp4 Outcome: 21:57 Discharge ordered by . sp4 22:20 Patient left the ED. br2 22:31 Discharged to home via wheelchair, br2 22:31 Condition: good 22:31 Discharge instructions given to patient, Instructed on discharge instructions, follow up and referral plans. Demonstrated understanding of instructions, follow-up care, Signatures: Uriel Cannon MD MD sp4 Verna Jhaveri Christina cp4 Destiney Moura RN RN br2 Corrections: (The following items were deleted from the chart) 22:34 22:33 Patient left the ED. br2 br2
[2024-07-22 06:21] VITALS: BP 149/111; TEMP 98.2; O2SAT 100
== END 2024-07-21 22:33 | disposition home or self-care (01) ==
LOC: ER 20:34
DX: M25.512 Pain in left shoulder (principal); G89.29 Other chronic pain; F17.210 Nicotine dependence, cigarettes, uncomplicated
CPT/HCPCS: 99284; Q0169

== ENCOUNTER 2024-07-24 20:31 | Emergency (ER) | payer OTHER ==
--- NOTE | 2024-07-24 20:34 | EDPHYS ---
Physician Documentation [facility] Name: Geetha Khan Age: 49 yrs Sex: Female : 1975 Arrival Date: 07/24/2024 Time: 20:31 Bed IW3 Private MD: ED Physician Michael Grimm HPI: 07/24 21:12 This 49 yrs old Female presents to ER via EMS with complaints of chest pain, anxiety. sb4 21:12 Patient presents today stating that she feels like the [place]ehan are closing in on her. sb4 Reports chest pain and anxiety. Has not taken any medication for symptoms. States that her was recently diagnosed with kidney cancer and they do not know his prognosis. No other associated signs and symptoms. Has been seen here several times past week for similar symptoms. Historical: - Allergies: 20:56 Aspirin; kd3 20:56 CRANBERRY; kd3 20:56 FISH PRODUCT DERIVATIVES; kd3 20:56 GRAPEFRUIT; kd3 20:56 mushroom; kd3 20:56 SHELLFISH; kd3 - Immunization history:: Adult Immunizations up to date. - Infectious Disease History:: Denies. - Social history:: Smoking status: unknown. ROS: 21:12 Constitutional: Negative for fever, chills, and weight loss, sb4 21:12 Cardiovascular: Positive for chest pain, 21:12 Psych: Positive for anxiety, 21:12 All other systems are negative, Exam: 21:12 Constitutional: This is a well developed, well nourished patient who is awake, alert, sb4 and in no acute distress. Head/Face: Normocephalic, atraumatic. Eyes: Extra-ocular motions intact. Periorbital areas with no swelling, redness, or edema. ENT: Mucous membranes moist. Cardiovascular: Regular rate and rhythm with a normal S1 and S2. Respiratory: No increased work of breathing, no retractions or nasal flaring. Skin: Warm, dry with normal turgor. Normal color with no rashes, no lesions, and no evidence of cellulitis. Vital Signs: 20:51 BP 149 / 100; Pulse 92; Resp 18; Temp 98.1(O); Pulse Ox 99% on R/A; kd3 MDM: 20:33 Medical Screening Exam initiated sb4 21:13 Data reviewed: vital signs, nurses notes, EMS record, and as a result, I will discharge sb4 patient. Care significantly affected by the following chronic conditions: Hypertension. Counseling: I had a detailed discussion with the patient and/or guardian regarding the historical points, exam findings, and any diagnostic results supporting the discharge/admit diagnosis, the presence of at least one elevated blood pressure reading (>120/80) during this emergency department visit, the need for outpatient follow up, for definitive care, to return to the emergency department if symptoms worsen or persist or if there are any questions or concerns that arise at home. Administered Medications: 20:55 Drug: hydrOXYzine PO 50 mg PO once Route: PO; kd3 20:55 Drug: Ketorolac IM 30 mg IM once Route: IM; Site: left deltoid; kd3 Disposition Summary: 07/24/24 20:33 Discharge Ordered Notes: Location: Home sb4 Problem: an ongoing problem sb4 Symptoms: are unchanged sb4 Condition: Stable sb4 Diagnosis - Anxiety, noncardiac chronic chest pain sb4 Followup: sb4 - With: Obed Eddy DO - When: 1 week - Reason: Further diagnostic work-up, Recheck today's complaints, Re-evaluation by your physician Discharge Instructions: - Discharge Summary Sheet sb4 - Chronic Pain, Adult sb4 - Managing Anxiety, Adult sb4 Forms: - Patient Portal Instructions sb4 - Leadership Thank You Letter sb4 Signatures: Lisbet Dan RN RN kd3 Kalli Bradshaw PA-C PA-C sb4
[2024-07-24] MEDS ORDERED: hydrOXYzine HCL 25 MG TAB ONE (20:42)
[2024-07-24] MEDS ORDERED: KETOROLAC 30 MG/ML INJ ONE (20:43)
--- NOTE | 2024-07-24 20:59 | ER ---
Nurse's Notes [facility] Name: Geetha Khan Age: 49 yrs Sex: Female : 1975 Arrival Date: 07/24/2024 Time: 20:31 Bed IW3 Private MD: Diagnosis: Anxiety, noncardiac chronic chest pain Presentation: 07/24 20:55 Chief complaint: EMS states: Aches and pains in the chest, head, and all over. kd3 Coronavirus screen: Vaccine status: unknown. Ebola Screen: No symptoms or risks identified at this time. Initial Sepsis Screen: Does the patient meet any 2 criteria? No. Patient's initial sepsis screen is negative. Does the patient have a suspected source of infection? No. Patient's initial sepsis screen is negative. Risk Assessment: Do you want to hurt yourself or someone else? Patient reports no desire to harm self or others. Onset of symptoms was July 24, 2024. 20:55 Method Of Arrival: EMS kd3 20:55 Acuity: CORRINA 4 kd3 Triage Assessment: 20:56 General: Appears in no apparent distress. Behavior is calm, cooperative. Pain: kd3 Complains of pain in face and chest. Historical: - Allergies: 20:56 Aspirin; kd3 20:56 CRANBERRY; kd3 20:56 FISH PRODUCT DERIVATIVES; kd3 20:56 GRAPEFRUIT; kd3 20:56 mushroom; kd3 20:56 SHELLFISH; kd3 - Immunization history:: Adult Immunizations up to date. - Infectious Disease History:: Denies. - Social history:: Smoking status: unknown. Screenin:57 [place] ED Fall Risk Assessment (Adult) History of falling in the last 3 months, kd3 including since admission No falls in past 3 months (0 pts) Confusion or Disorientation No (0 pts) Intoxicated or Sedated No (0 pts) Impaired Gait Yes (1 pt) Mobility Assist Device Used No (0 pt) Altered Elimination No (0 pt) Score/Fall Risk Level 0 - 2 = Low Risk Oriented to surroundings. Abuse screen: Denies threats or abuse. Denies injuries from another. Nutritional screening: No deficits noted. Tuberculosis screening: No symptoms or risk factors identified. Vital Signs: 20:51 BP 149 / 100; Pulse 92; Resp 18; Temp 98.1(O); Pulse Ox 99% on R/A; kd3 ED Course: 20:32 Patient arrived in ED. sb4 20:32 Kalli Bradshaw PA-C [facility]. sb4 20:32 Michael Grimm MD is Attending Physician. sb4 20:33 Obed Eddy DO is Referral Physician. sb4 20:56 Triage completed. kd3 20:56 Arm band placed on. kd3 20:57 Patient has correct armband on for positive identification. Provided Education on: pain kd3 management . 20:57 No provider procedures requiring assistance completed. Patient did not have IV access kd3 during this emergency room visit. Administered Medications: 20:55 Drug: hydrOXYzine PO 50 mg PO once Route: PO; kd3 20:55 Drug: Ketorolac IM 30 mg IM once Route: IM; Site: left deltoid; kd3 Medication: 20:57 VIS not applicable for this client. kd3 Outcome: 20:33 Discharge ordered by . sb4 20:57 Discharged to home via wheelchair, kd3 20:57 Condition: stable 20:57 Discharge instructions given to patient, Instructed on discharge instructions, follow up and referral plans. Demonstrated understanding of instructions, follow-up care, 20:58 Patient left the ED. kd3 Signatures: Lisbet Dan RN RN kd3 Kalli Bradshaw PA-C PA-C sb4
[2024-07-24 21:18] VITALS: BP 149/100; TEMP 98.1; O2SAT 99
== END 2024-07-24 20:58 | disposition home or self-care (01) ==
LOC: ER 20:31
DX: F41.9 Anxiety disorder, unspecified (principal)
CPT/HCPCS: 96372; 99284

== ENCOUNTER 2024-07-25 20:40 | Emergency (ER) | payer OTHER ==
[2024-07-25] MEDS ORDERED: methocarbamoL 750 MG TAB ONE (21:18)
[2024-07-25] MEDS ORDERED: KETOROLAC 30 MG/ML INJ ONE (21:19)
--- NOTE | 2024-07-25 21:52 | ER ---
Nurse's Notes [facility] Name: Geetha Khan Age: 49 yrs Sex: Female : 1975 Arrival Date: 07/25/2024 Time: 20:40 Bed 10 Private MD: Diagnosis: Chronic pain syndrome;Anxiety disorder, unspecified Presentation: 07/25 20:49 Chief complaint: Patient states: I am here for the same reason i was here yesterday. kd3 Shoulder pains and chest pains. Coronavirus screen: unknown. Ebola Screen: No symptoms or risks identified at this time. Initial Sepsis Screen: Does the patient meet any 2 criteria? No. Patient's initial sepsis screen is negative. Does the patient have a suspected source of infection? No. Patient's initial sepsis screen is negative. Risk Assessment: Do you want to hurt yourself or someone else? Patient reports no desire to harm self or others. Onset of symptoms was July 25, 2024. 20:49 Method Of Arrival: EMS kd3 20:49 Acuity: CORRINA 4 kd3 Triage Assessment: 20:50 General: Appears in no apparent distress. Behavior is calm, cooperative. Pain: kd3 Complains of pain in chest, anterior aspect of left shoulder and posterior aspect of left shoulder. Cardiovascular: Capillary refill < 3 seconds Patient's skin is warm and dry. Historical: - Allergies: 20:50 Aspirin; kd3 20:50 CRANBERRY; kd3 20:50 FISH PRODUCT DERIVATIVES; kd3 20:50 GRAPEFRUIT; kd3 20:50 mushroom; kd3 20:50 SHELLFISH; kd3 - PMHx: 20:50 Cerebrovascular accident; Chronic obstructive lung disease; Hypertensive disorder; Left kd3 sided paralysis post CVA; Myocardial infarction; Seizure; - Immunization history:: Adult Immunizations up to date. - Infectious Disease History:: Denies. - Social history:: Smoking status: Patient reports the use of cigarette tobacco products, smokes one-half pack cigarettes per day. Screenin:09 [facility] ED Fall Risk Assessment (Adult) History of falling in the last 3 months, jb4 including since admission No falls in past 3 months (0 pts) Confusion or Disorientation No (0 pts) Intoxicated or Sedated No (0 pts) Impaired Gait No (0 pts) Mobility Assist Device Used No (0 pt) Altered Elimination No (0 pt) Score/Fall Risk Level 0 - 2 = Low Risk Oriented to surroundings, Maintained a safe environment. Abuse screen: Denies threats or abuse. Nutritional screening: No deficits noted. Tuberculosis screening: No symptoms or risk factors identified. Assessment: 22:09 Reassessment: Patient appears in no apparent distress at this time. Patient and/or jb4 family updated on plan of care and expected duration. Pain level reassessed. Patient is alert, oriented x 3, equal unlabored respirations, skin warm/dry/pink. Vital Signs: 20:49 BP 143 / 105; Pulse 96; Resp 18; Temp 97.7(O); Pulse Ox 100% on R/A; kd3 ED Course: 20:46 Patient arrived in ED. kd3 20:50 Michael Nguyen PA is PHCP. cp 20:50 Michael Grimm MD is Attending Physician. cp 20:50 Triage completed. kd3 20:50 Arm band placed on right wrist. kd3 21:05 Patient's name was called from ER lobby. No response. jb4 21:30 Patient has correct armband on for positive identification. Bed in low position. Call jb4 light in reach. Side rails up X 1. Provided Education on: plan of care. 21:30 No provider procedures requiring assistance completed. Patient did not have IV access jb4 during this emergency room visit. Patient maintains SpO2 saturation greater than 95% on room air. Administered Medications: 21:29 Drug: Ketorolac IM 15 mg IM once Route: IM; Site: right deltoid; jb4 21:29 Drug: Methocarbamol PO 750 mg PO once Route: PO; jb4 Medication: 22:09 VIS not applicable for this client. jb4 Outcome: 21:52 Discharge ordered by . cp 22:11 Discharged to home via wheelchair, with familykinsey 22:11 Condition: stable 22:11 Discharge instructions given to patient, Instructed on discharge instructions, follow up and referral plans. Demonstrated understanding of instructions, follow-up care, 22:11 Patient left the ED. jb4 Signatures: Michael Nguyen PA PA cp Bryson, James RN RN jb4 Lisbet Dan RN RN kd3 Corrections: (The following items were deleted from the chart) 22:11 21:30 Discharged to home via wheelchair, with family, kinsey jb4 22:02 05:30 Condition: stable jb4 jb4 :30 Discharge instructions given to patient, Instructed on discharge instructions, jb4 follow up and referral plans. Demonstrated understanding of instructions, follow-up care, jb4
--- NOTE | 2024-07-25 21:52 | EDPHYS ---
Physician Documentation [facility] Name: Geetha Khan Age: 49 yrs Sex: Female : 1975 Arrival Date: 07/25/2024 Time: 20:40 Bed 10 Private MD: ED Physician Michael Grimm HPI: 07/25 21:00 This 49 yrs old Female presents to ER via EMS with complaints of Anxiety, Shoulder cp Pain, Chest Pain. 21:00 The patient or guardian reports chest pain that is located primarily in the anterior cp chest wall. 21:00 Onset: chronic. Associated signs and symptoms: Pertinent positives: shoulder pain and cp anxiety. 21:00 The patient has been recently seen at the [facility] Emergency cp Department, yesterday, for similar complaints. Historical: - Allergies: 20:50 Aspirin; kd3 20:50 CRANBERRY; kd3 20:50 FISH PRODUCT DERIVATIVES; kd3 20:50 GRAPEFRUIT; kd3 20:50 mushroom; kd3 20:50 SHELLFISH; kd3 - PMHx: 20:50 Cerebrovascular accident; Chronic obstructive lung disease; Hypertensive disorder; Left kd3 sided paralysis post CVA; Myocardial infarction; Seizure; - Immunization history:: Adult Immunizations up to date. - Infectious Disease History:: Denies. - Social history:: Smoking status: Patient reports the use of cigarette tobacco products, smokes one-half pack cigarettes per day. ROS: 21:05 Constitutional: Negative for body aches, chills, fever, poor PO intake, cp 21:05 Cardiovascular: Positive for chest pain, cp 21:05 Abdomen/GI: Negative for abdominal pain, vomiting, diarrhea, constipation, 21:05 MS/extremity: Positive for shoulder pain, 21:05 Neuro: Negative for altered mental status, dizziness, headache, weakness, 21:05 Psych: Positive for anxiety, 21:05 All other systems are negative, Exam: 21:10 Constitutional: The patient appears in no acute distress, alert, awake, cp non-diaphoretic, non-toxic, well developed, well nourished, 21:10 Head/Face: Normocephalic, atraumatic. cp 21:10 Eyes: Periorbital structures: appear normal, Conjunctiva: normal, no exudate, Sclera: no appreciated abnormality, Lids and lashes: appear normal, bilaterally, 21:10 ENT: External ear(s): are unremarkable, Nose: is normal, Mouth: Lips: moist, Oral mucosa: moist, Posterior pharynx: Airway: no evidence of obstruction, patent, 21:10 Chest/axilla: Inspection: normal, 21:10 Cardiovascular: Rate: normal, Rhythm: regular, 21:10 Respiratory: the patient does not display signs of respiratory distress, Respirations: normal, no use of accessory muscles, no retractions, labored breathing, is not present, Breath sounds: are clear throughout, no decreased breath sounds, no stridor, no wheezing, 21:10 Abdomen/GI: Inspection: abdomen appears normal, 21:10 Neuro: Orientation: to person, place \T\ time. Mentation: is normal, Motor: no acute changes, Sensation: no acute changes, 21:32 ECG was reviewed by the Attending Physician. Vital Signs: 20:49 BP 143 / 105; Pulse 96; Resp 18; Temp 97.7(O); Pulse Ox 100% on R/A; kd3 MDM: 20:55 Medical Screening Exam initiated 21:51 Data reviewed: vital signs, nurses notes, EKG, and as a result, I will discharge cp patient. 21:51 Differential diagnosis: abnormal EKG, pancreatitis, pericarditis, pleurisy, pneumonia, cp pneumothorax. I considered the following discharge prescriptions or medication management in the emergency department Medications were administered in the Emergency Department. See MAR. Care significantly affected by the following chronic conditions: Hypertension, Chronic Obstructive Pulmonary Disease. Counseling: I had a detailed discussion with the patient and/or guardian regarding the historical points, exam findings, and any diagnostic results supporting the discharge/admit diagnosis, to return to the emergency department if symptoms worsen or persist or if there are any questions or concerns that arise at home. Special discussion: Based on the patient's history, exam, and Dx evaluation, there is no indication for emergent intervention or inpatient Tx. It is understood by the patient/guardian that if the Sx's persist or worsen they need to return immediately for re-evaluation. 07/25 20:56 Order name: EKG; Complete Time: 20:56 07/25 20:56 Order name: EKG - Nurse/Tech; Complete Time: 21:29 EC:32 Rate is 85 beats/min. Rhythm is regular. MS interval is normal. QRS interval is normal. cp QT interval is normal. T waves are Inverted in leads I, II, aVL, V5, V6. Interpreted by me. Reviewed by me. Administered Medications: 21:29 Drug: Ketorolac IM 15 mg IM once Route: IM; Site: right deltoid; jb4 21:29 Drug: Methocarbamol PO 750 mg PO once Route: PO; jb4 Disposition: 07/26 20:26 Chart complete. cp Disposition Summary: 07/25/24 21:52 Discharge Ordered Notes: Location: Home cp Problem: chronic cp Symptoms: have improved cp Condition: Stable cp Diagnosis - Chronic pain syndrome cp - Anxiety disorder, unspecified cp Followup: cp - With: Private Physician - When: 2 - 3 days - Reason: Recheck today's complaints Discharge Instructions: - Discharge Summary Sheet cp - Chronic Pain, Adult cp - Managing Anxiety, Adult cp Forms: - Medication Reconciliation Form cp - Antibiotic Education cp - Prescription Opioid Use cp - Patient Portal Instructions cp - Leadership Thank You Letter cp Signatures: Michael Nguyen PA PA cp Bryson, James, RN RN jb4 Lisbet Dan RN RN kd3
[2024-07-25 22:29] VITALS: BP 143/105; TEMP 97.7; O2SAT 100
--- NOTE | 2024-07-27 12:00 | EKG ---
Test Date: 2024-07-25 Test Time: 21:25:53 Industrial Ecologist: NAOMY MEASUREMENT RESULTS: Intervals: Rate: 85 CO: 178 QRSD: 84 QT: 380 QTc: 452 [place]: P: 33 CO: 178 QRS: -10 T: 145 INTERPRETIVE STATEMENTS: Normal sinus rhythm Left ventricular hypertrophy with repolarization abnormality Inferior infarct, age undetermined Abnormal ECG Compared to ECG 05/08/2024 21:35:52 Myocardial infarct finding now present Electronically Signed On 07-27-24 11:57:00 CDT by Alan Garay
== END 2024-07-25 22:11 | disposition home or self-care (01) ==
LOC: ER 20:40
DX: G89.4 Chronic pain syndrome (principal); F41.9 Anxiety disorder, unspecified; I10 Essential (primary) hypertension; I25.2 Old myocardial infarction; F17.210 Nicotine dependence, cigarettes, uncomplicated
CPT/HCPCS: 93005; 96372; 99284

== ENCOUNTER 2024-07-26 21:36 | Emergency (ER) | payer OTHER ==
[2024-07-26] MEDS ORDERED: ACETAMINOPHEN 500 MG TAB ONE (21:49)
[2024-07-26] MEDS ORDERED: KETOROLAC 10 MG TAB ONE (21:49)
[2024-07-26] MEDS ORDERED: PROMETHAZINE 25 MG TABLET ONE (21:50)
[2024-07-26] MEDS ORDERED: methocarbamoL 750 MG TAB ONE (21:50)
--- NOTE | 2024-07-26 21:51 | ER ---
Nurse's Notes [facility] Name: Geetha Khan Age: 49 yrs Sex: Female : 1975 Arrival Date: 07/26/2024 Time: 21:36 Bed IW1 Private MD: Diagnosis: Acute anxiety, Acute stress response Presentation: 07/26 21:37 Chief complaint: EMS states: toned out for chest pain and lt shoulder pain x1 hour. dd2 Coronavirus screen: At this time, the client does not indicate any symptoms associated with coronavirus-19. Ebola Screen: No symptoms or risks identified at this time. Initial Sepsis Screen: Does the patient meet any 2 criteria? No. Patient's initial sepsis screen is negative. Does the patient have a suspected source of infection? No. Patient's initial sepsis screen is negative. Risk Assessment: Do you want to hurt yourself or someone else? Patient reports no desire to harm self or others. Onset of symptoms was July 26, 2024. 21:37 Method Of Arrival: EMS: [facility] dd2 21:37 Acuity: CORRINA 3 dd2 Triage Assessment: 21:39 General: Appears in no apparent distress. comfortable, Behavior is calm, cooperative, dd2 appropriate for age. Pain: Complains of pain in chest and anterior aspect of left shoulder Pain currently is 5 out of 10 on a pain scale. EENT: No deficits noted. No signs and/or symptoms were reported regarding the EENT system. Neuro: No deficits noted. Cardiovascular: Reports chest pain, Patient's skin is warm and dry. Respiratory: No deficits noted. GI: No deficits noted. No signs and/or symptoms were reported involving the gastrointestinal system. : No deficits noted. No signs and/or symptoms were reported regarding the genitourinary system. Derm: No deficits noted. No signs and/or symptoms reported regarding the dermatologic system. Musculoskeletal: Circulation, motion, and sensation intact. Range of motion: limited in rt arm Reports pain in anterior aspect of left shoulder. Historical: - Allergies: 21:39 Aspirin; dd2 21:39 CRANBERRY; dd2 21:39 FISH PRODUCT DERIVATIVES; dd2 21:39 GRAPEFRUIT; dd2 21:39 mushroom; dd2 21:39 SHELLFISH; dd2 - PMHx: 21:39 Cerebrovascular accident; Chronic obstructive lung disease; Hypertensive disorder; Left dd2 sided paralysis post CVA; Myocardial infarction; Seizure; - PSHx: 21:39 None; dd2 - Immunization history:: Adult Immunizations up to date. - Infectious Disease History:: Denies. - Social history:: Smoking status: Patient denies any tobacco usage or history of. - Family history:: not pertinent. Screenin:42 [facility] ED Fall Risk Assessment (Adult) History of falling in the last 3 months, dd2 including since admission Yes- single mechanical fall (1 pt) Confusion or Disorientation No (0 pts) Intoxicated or Sedated No (0 pts) Impaired Gait Yes (1 pt) Mobility Assist Device Used Yes (1 pt) Altered Elimination Yes (1 pt) Score/Fall Risk Level 3 or more points = High Risk Oriented to surroundings, Maintained a safe environment, Educated pt \T\ family on fall prevention, incl call for assistance when getting out of bed, Assessed \T\ reinforced patient's understanding of fall precautions, Hourly rounding (assess needs \T\ fall precautionary measures) done. Abuse screen: Denies threats or abuse. Denies injuries from another. Nutritional screening: No deficits noted. Tuberculosis screening: No symptoms or risk factors identified. Assessment: 21:42 Reassessment: SEE TRIAGE ASSESSMENT FOR FULL ASSESSMENT. dd2 Vital Signs: 21:37 BP 148 / 90; Pulse 84; Resp 16; Temp 98.3; Pulse Ox 97% on R/A; dd2 [place] Coma Score: 21:42 Eye Response: spontaneous(4). Motor Response: obeys commands(6). Verbal Response: dd2 oriented(5). Total: 15. 05/12 00:26 Eye Response: spontaneous(4). Motor Response: obeys commands(6). Verbal Response: sp4 oriented(5). Total: 15. ED Course: 07/26 21:37 Patient arrived in ED. mr 21:38 Uriel Cannon MD is Attending Physician. sp4 21:39 Triage completed. dd2 21:39 Arm band placed on left wrist. dd2 21:42 Patient has correct armband on for positive identification. Client placed on continuous dd2 cardiac and pulse oximetry monitoring. NIBP monitoring applied. Verbal reassurance given. 21:42 No provider procedures requiring assistance completed. Patient did not have IV access dd2 during this emergency room visit. Patient maintains SpO2 saturation greater than 95% on room air. 21:56 Provided Education on: D/CC INSTRUCTIONS. dd2 Administered Medications: 21:54 Drug: Promethazine PO 25 mg PO once Route: PO; dd2 21:55 Follow up: Response: Medication administered at discharge. dd2 21:54 Drug: Acetaminophen PO 1000 mg PO once Route: PO; dd2 21:55 Follow up: Response: Medication administered at discharge. dd2 21:54 Drug: Methocarbamol PO 750 mg PO once Route: PO; dd2 21:55 Follow up: Response: Medication administered at discharge. dd2 21:55 Drug: Ketorolac PO 10 mg PO once Route: PO; dd2 21:55 Follow up: Response: Medication administered at discharge. dd2 Medication: 21:42 VIS not applicable for this client. dd2 Outcome: 21:51 Discharge ordered by MD. sullivan 21:56 Discharged to home with family, dd2 21:56 Condition: stable 21:56 Discharge instructions given to patient, Instructed on discharge instructions, follow up and referral plans. Demonstrated understanding of instructions, follow-up care, 21:56 Patient left the ED. dd2 Signatures: Clair Marina Reg Reg mr Potepalov, Sergey, MD MD sp4 MAGGIE GIBSON RN RN dd2
--- NOTE | 2024-07-26 21:51 | EDPHYS ---
Physician Documentation [facility] Name: Geetha Khan Age: 49 yrs Sex: Female : 1975 Arrival Date: 07/26/2024 Time: 21:36 Bed IW1 Private MD: ED Physician Uriel Cannon HPI: 07/26 21:38 This 49 yrs old Female presents to ER via Unassigned with complaints of Chest sp4 Pain, Shoulder Pain. 23:45 49-year-old female presents with complaint of anxiety and chest pain. Also chronic left sp4 shoulder pain.. Historical: - Allergies: 21:39 Aspirin; dd2 21:39 CRANBERRY; dd2 21:39 FISH PRODUCT DERIVATIVES; dd2 21:39 GRAPEFRUIT; dd2 21:39 mushroom; dd2 21:39 SHELLFISH; dd2 - PMHx: 21:39 Cerebrovascular accident; Chronic obstructive lung disease; Hypertensive disorder; Left dd2 sided paralysis post CVA; Myocardial infarction; Seizure; - PSHx: 21:39 None; dd2 - Immunization history:: Adult Immunizations up to date. - Infectious Disease History:: Denies. - Social history:: Smoking status: Patient denies any tobacco usage or history of. - Family history:: not pertinent. ROS: 23:45 Constitutional: Negative for fever, chills, and weight loss, positive anxiety positive sp4 chest pain positive left shoulder pain 23:45 All other systems are negative, Exam: 07/27 00:26 Constitutional: This is a well developed, well nourished patient who is awake, alert, sp4 and in no acute distress. Head/Face: Normocephalic, atraumatic. Eyes: Pupils equal round and reactive to light, extra-ocular motions intact. Lids and lashes normal. Conjunctiva and sclera are not injected. Cornea within normal limits. Periorbital areas with no swelling, redness, or edema. ENT: Nares patent. No nasal discharge, no septal abnormalities noted. Tympanic membranes are normal and external auditory canals are clear. Oropharynx with no redness, swelling, or masses, exudates, or evidence of obstruction, uvula midline. Mucous membranes moist. Neck: Trachea midline, no thyromegaly or masses palpated, and no cervical lymphadenopathy. Supple, full range of motion without nuchal rigidity, or vertebral point tenderness. Chest/axilla: Normal chest wall appearance and motion. Nontender with no deformity. No lesions are appreciated. Cardiovascular: Regular rate and rhythm with a normal S1 and S2. No gallops, murmurs, or rubs. Normal PMI, no JVD. No pulse deficits. Respiratory: Lungs have equal breath sounds bilaterally, clear to auscultation and percussion. No rales, rhonchi or wheezes noted. No increased work of breathing, no retractions or nasal flaring. Abdomen/GI: Soft, with normal bowel sounds. No distension or tympany. No guarding or rebound. No evidence of tenderness throughout. Back: No spinal tenderness. No costovertebral tenderness. Skin: Warm, dry with normal turgor. Normal color with no rashes, no lesions, and no evidence of cellulitis. MS/ Extremity: Pulses equal, no cyanosis. Chronic left hemiparesis from prior CVA Neuro: Awake and alert, GCS 15, oriented to person, place, time, and situation. Chronic left hemiparesis from prior CVA Psych: Awake, alert, with orientation to person, place and time. Behavior, mood, and affect are within normal limits Vital Signs: 07/26 21:37 BP 148 / 90; Pulse 84; Resp 16; Temp 98.3; Pulse Ox 97% on R/A; dd2 [place] Coma Score: 21:42 Eye Response: spontaneous(4). Motor Response: obeys commands(6). Verbal Response: dd2 oriented(5). Total: 15. 07/27 00:26 Eye Response: spontaneous(4). Motor Response: obeys commands(6). Verbal Response: sp4 oriented(5). Total: 15. MDM: 07/26 21:41 Medical Screening Exam initiated sp4 07/27 00:27 Differential diagnosis: anxiety, chest wall pain, esophagitis, gastritis, sp4 gastroesophageal reflux disease (GERD), pleurisy. Data reviewed: vital signs, nurses notes, EMS record, old medical records. ED course: Patient is well-known to me from prior visits. Patient stable for discharge home. Pain has improved after p.o. medications. Administered Medications: 07/26 21:54 Drug: Promethazine PO 25 mg PO once Route: PO; dd2 21:55 Follow up: Response: Medication administered at discharge. dd2 21:54 Drug: Acetaminophen PO 1000 mg PO once Route: PO; dd2 21:55 Follow up: Response: Medication administered at discharge. dd2 21:54 Drug: Methocarbamol PO 750 mg PO once Route: PO; dd2 21:55 Follow up: Response: Medication administered at discharge. dd2 21:55 Drug: Ketorolac PO 10 mg PO once Route: PO; dd2 21:55 Follow up: Response: Medication administered at discharge. dd2 Disposition: 07/27 00:28 Chart complete. sp4 Disposition Summary: 07/26/24 21:51 Discharge Ordered Notes: Location: Home sp4 Problem: new sp4 Symptoms: have improved sp4 Condition: Stable sp4 Diagnosis - Acute anxiety, Acute stress response sp4 Followup: sp4 - With: Private Physician - When: 7 - 10 days - Reason: Recheck today's complaints Discharge Instructions: - Discharge Summary Sheet sp4 - Managing Anxiety, Adult sp4 Forms: - Patient Portal Instructions sp4 Signatures: Uriel Cannon MD MD sp4 MAGGIE GIBSON RN RN dd2
[2024-07-26 22:16] VITALS: BP 148/90; TEMP 98.3; O2SAT 97
== END 2024-07-26 21:56 | disposition home or self-care (01) ==
LOC: ER 21:36
DX: F43.0 Acute stress reaction (principal)
CPT/HCPCS: 99284; Q0169

== ENCOUNTER 2024-07-28 00:32 | Emergency (ER) | payer OTHER ==
--- NOTE | 2024-07-28 01:20 | EDPHYS ---
Physician Documentation [facility] Name: Geetha Khan Age: 49 yrs Sex: Female : 1975 Arrival Date: 07/28/2024 Time: 00:32 Bed DX3 Private MD: ED Physician Uriel Cannon HPI: 07/28 00:37 This 49 yrs old Female presents to ER via Unassigned with complaints of Back sp4 Pain. 01:20 49-year-old female presents with acute onset lower back pain. Patient has history of sp4 left-sided hemiparesis from prior CVA. 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 - Infectious Disease History:: Denies. - Family history:: not pertinent. - Social history:: Smoking status: Patient reports the use of cigarette tobacco products. ROS: 01:20 Constitutional: Negative for fever, chills, and weight loss, positive for lower back sp4 pain 01:20 All other systems are negative, Exam: 01:20 Constitutional: This is a well developed, well nourished patient who is awake, alert, sp4 and in no acute distress. Head/Face: Normocephalic, atraumatic. Eyes: Pupils equal round and reactive to light, extra-ocular motions intact. Lids and lashes normal. Conjunctiva and sclera are not injected. Cornea within normal limits. Periorbital areas with no swelling, redness, or edema. ENT: Nares patent. No nasal discharge, no septal abnormalities noted. Tympanic membranes are normal and external auditory canals are clear. Oropharynx with no redness, swelling, or masses, exudates, or evidence of obstruction, uvula midline. Mucous membranes moist. Neck: Trachea midline, no thyromegaly or masses palpated, and no cervical lymphadenopathy. Supple, full range of motion without nuchal rigidity, or vertebral point tenderness. Chest/axilla: Normal chest wall appearance and motion. Nontender with no deformity. No lesions are appreciated. Cardiovascular: Regular rate and rhythm with a normal S1 and S2. No gallops, murmurs, or rubs. Normal PMI, no JVD. No pulse deficits. Respiratory: Lungs have equal breath sounds bilaterally, clear to auscultation and percussion. No rales, rhonchi or wheezes noted. No increased work of breathing, no retractions or nasal flaring. Abdomen/GI: Soft, with normal bowel sounds. No distension or tympany. No guarding or rebound. No evidence of tenderness throughout. Back: No spinal tenderness. No costovertebral tenderness. Skin: Warm, dry with normal turgor. Normal color with no rashes, no lesions, and no evidence of cellulitis. MS/ Extremity: Pulses equal, no cyanosis. Chronic left-sided hemiparesis from prior CVA Neuro: Awake and alert, GCS 15, oriented to person, place, time, and situation. Chronic left-sided hemiparesis from prior CVA Psych: Awake, alert, with orientation to person, place and time. Behavior, mood, and affect are within normal limits Vital Signs: 01:09 BP 159 / 100; Pulse 88; Resp 16; Temp 98.9; Pulse Ox 100% on R/A; vk 01:12 Weight 72.5 kg; Height 5 ft. 3 in. ; vk 01:12 Body Mass Index 28.31 (72.50 kg, 160.02 cm) vk [place] Coma Score: 01:20 Eye Response: spontaneous(4). Motor Response: obeys commands(6). Verbal Response: sp4 oriented(5). Total: 15. MDM: 00:37 Medical Screening Exam initiated sp4 01:22 Differential diagnosis: arthritis, Fatigue Joint Injury Osteoporosis. Data reviewed: sp4 vital signs, nurses notes, EMS record, old medical records. Consideration of Admission/Observation Escalation of care including admission/observation considered. ED course: Patient's pain has improved. Patient stable for discharge home. No additional workup recommended. Administered Medications: 01:43 Drug: Cyclobenzaprine PO 10 mg PO once Route: PO; al5 01:43 Drug: Ketorolac PO 10 mg PO once Route: PO; al5 01:43 Drug: Acetaminophen PO 1000 mg PO once Route: PO; al5 Disposition Summary: 07/28/24 01:19 Discharge Ordered Notes: Location: Home sp4 Problem: new sp4 Symptoms: have improved sp4 Condition: Stable sp4 Diagnosis - Low back pain sp4 Followup: sp4 - With: Private Physician - When: 7 - 10 days - Reason: Recheck today's complaints Discharge Instructions: - Discharge Summary Sheet sp4 - Acute Back Pain, Adult sp4 Forms: - Patient Portal Instructions sp4 Signatures: Syeda Bruce RN RN vc1 Uriel Cannon MD MD sp4 Anayeli Otero RN RN al5
--- NOTE | 2024-07-28 01:20 | ER ---
Nurse's Notes [facility] Name: Geetha Khan Age: 49 yrs Sex: Female : 1975 Arrival Date: 07/28/2024 Time: 00:32 Bed DX3 Private MD: Diagnosis: Low back pain Presentation: 07/28 00:32 Chief complaint: EMS states: c/o pain to left of kidney. vc1 00:32 Coronavirus screen: Client denies travel out of the [place] in the last 14 days. At this vc1 time, the client does not indicate any symptoms associated with coronavirus-19. Ebola Screen: Patient negative for fever greater than or equal to 101.5 degrees Fahrenheit, and additional compatible Ebola Virus Disease symptoms Patient denies exposure to infectious person. Patient denies travel to an Ebola-affected area in the 21 days before illness onset. No symptoms or risks identified at this time. Initial Sepsis Screen: Does the patient meet any 2 criteria? No. Patient's initial sepsis screen is negative. Does the patient have a suspected source of infection? No. Patient's initial sepsis screen is negative. Risk Assessment: Do you want to hurt yourself or someone else? Patient reports no desire to harm self or others. Onset of symptoms was July 27, 2024 at 23:30. 00:32 Method Of Arrival: EMS: [facility] vc1 00:32 Acuity: CORRINA 4 vc1 Triage Assessment: 01:29 General: Appears in no apparent distress. uncomfortable, Behavior is calm, cooperative, vc1 appropriate for age. Pain: Complains of pain in left low back Pain does not radiate. Pain currently is 8 out of 10 on a pain scale. EENT: No deficits noted. No signs and/or symptoms were reported regarding the EENT system. Neuro: Level of Consciousness is awake, alert, obeys commands, Oriented to person, place, time, situation, Appropriate for age. Cardiovascular: Capillary refill < 3 seconds Patient's skin is warm and dry. Respiratory: Airway is patent Respiratory effort is even, unlabored, Respiratory pattern is regular, symmetrical, Breath sounds are clear bilaterally. GI: No deficits noted. No signs and/or symptoms were reported involving the gastrointestinal system. : No deficits noted. No signs and/or symptoms were reported regarding the genitourinary system. Derm: Skin is intact, is healthy with good turgor, Skin is dry, Skin is normal. Musculoskeletal: Circulation, motion, and sensation intact. Range of motion: limited in left shoulder. 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 - Infectious Disease History:: Denies. - Family history:: not pertinent. - Social history:: Smoking status: Patient reports the use of cigarette tobacco products. Screenin:32 [facility] ED Fall Risk Assessment (Adult) History of falling in the last 3 months, vc1 including since admission Yes- fall prone (multiple falls) (3 pts) Confusion or Disorientation No (0 pts) Intoxicated or Sedated No (0 pts) Impaired Gait Yes (1 pt) Mobility Assist Device Used Yes (1 pt) Altered Elimination No (0 pt) Score/Fall Risk Level 3 or more points = High Risk Oriented to surroundings, Maintained a safe environment, Educated pt \T\ family on fall prevention, incl call for assistance when getting out of bed, Hourly rounding (assess needs \T\ fall precautionary measures) done. Abuse screen: Denies threats or abuse. Nutritional screening: No deficits noted. Tuberculosis screening: No symptoms or risk factors identified. Vital Signs: 01:09 BP 159 / 100; Pulse 88; Resp 16; Temp 98.9; Pulse Ox 100% on R/A; vk 01:12 Weight 72.5 kg; Height 5 ft. 3 in. ; vk 01:12 Body Mass Index 28.31 (72.50 kg, 160.02 cm) vk [place] Coma Score: 01:20 Eye Response: spontaneous(4). Motor Response: obeys commands(6). Verbal Response: sp4 oriented(5). Total: 15. ED Course: 00:35 Patient arrived in ED. mr 00:37 Uriel Cannon MD is Attending Physician. sp4 01:27 Triage completed. vc1 01:29 Arm band placed on right wrist. vc1 01:31 Patient has correct armband on for positive identification. Provided Education on: plan vc1 of care. 02:08 No provider procedures requiring assistance completed. Patient did not have IV access vc1 during this emergency room visit. Administered Medications: 01:43 Drug: Cyclobenzaprine PO 10 mg PO once Route: PO; al5 01:43 Drug: Ketorolac PO 10 mg PO once Route: PO; al5 01:43 Drug: Acetaminophen PO 1000 mg PO once Route: PO; al5 Medication: 01:32 VIS not applicable for this client. vc1 Outcome: 01:19 Discharge ordered by . sp4 02:08 Discharged to home via wheelchair, with significant other, vc1 02:08 Condition: stable 02:08 Discharge instructions given to patient, Instructed on discharge instructions, follow up and referral plans. Demonstrated understanding of instructions, follow-up care, 02:08 Patient left the ED. vc1 Signatures: Clair Marina, Reg Reg FannieisaacSyeda, RN RN vc1 Uriel Cannon MD MD sp4 Chata Gibbons Amanda, RN RN al5
[2024-07-28] MEDS ORDERED: ACETAMINOPHEN 500 MG TAB ONE (01:40)
[2024-07-28] MEDS ORDERED: CYCLOBENZAPRINE 10 MG TAB ONE (01:40)
[2024-07-28] MEDS ORDERED: KETOROLAC 10 MG TAB ONE (01:40)
[2024-07-28 02:30] VITALS: BP 159/100; TEMP 98.9; O2SAT 100
== END 2024-07-28 02:08 | disposition home or self-care (01) ==
LOC: ER 00:32
DX: M54.50 Low back pain, unspecified (principal)
CPT/HCPCS: 99283

== ENCOUNTER 2024-07-29 19:18 | Emergency (ER) | payer OTHER ==
--- NOTE | 2024-07-29 19:42 | ER ---
Nurse's Notes [facility] Name: Geetha Khan Age: 49 yrs Sex: Female : 1975 Arrival Date: 07/29/2024 Time: 19:18 Bed IW6 Private MD: Diagnosis: Essential (primary) hypertension;Pain in left shoulder;Chronic noncardiac chest pain Presentation: 07/29 19:30 Chief complaint: EMS states: toned out for chest pain and left shoulder pain. CP is me1 midsternal 1010 "stabbing", left shoulder pain is an ache 12/25. Coronavirus screen: Vaccine status: Patient reports being unvaccinated. Ebola Screen: No symptoms or risks identified at this time. Initial Sepsis Screen: Does the patient meet any 2 criteria? No. Patient's initial sepsis screen is negative. Does the patient have a suspected source of infection? No. Patient's initial sepsis screen is negative. Risk Assessment: Do you want to hurt yourself or someone else? Patient reports no desire to harm self or others. Onset of symptoms was July 29, 2024 at 18:30. 19:30 Method Of Arrival: EMS: [facility] wa1 19:30 Acuity: CORRINA 3 me1 Triage Assessment: 19:34 General: Appears in no apparent distress. unkempt, well developed, well nourished, me1 Behavior is calm, cooperative, appropriate for age. Pain: Complains of pain in anterior aspect of left shoulder and chest Pain does not radiate. Pain currently is 10 out of 10 on a pain scale. Quality of pain is described as sharp, stabbing, Pain began suddenly, 1 hour ago. Is continuous. EENT: No signs and/or symptoms were reported regarding the EENT system. Neuro: Level of Consciousness is awake, alert, obeys commands, Oriented to person, place, time, situation, Appropriate for age. Cardiovascular: Patient's skin is warm and dry. Respiratory: Airway is patent Respiratory effort is even, unlabored, Respiratory pattern is regular, symmetrical. GI: No signs and/or symptoms were reported involving the gastrointestinal system. : No signs and/or symptoms were reported regarding the genitourinary system. Derm: Skin is intact, is healthy with good turgor, Skin is pink, warm \\T\\ dry. Musculoskeletal: Range of motion: limited in left shoulder, left elbow, left hip and left knee. 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 - Infectious Disease History:: Denies. - Social history:: Smoking status: Patient reports the use of cigarette tobacco products, denies chronic smoking, but will smoke occasionally. Screenin:50 [facility] ED Fall Risk Assessment (Adult) History of falling in the last 3 months, me1 including since admission Yes- single mechanical fall (1 pt) Confusion or Disorientation No (0 pts) Intoxicated or Sedated No (0 pts) Impaired Gait Yes (1 pt) Mobility Assist Device Used Yes (1 pt) Altered Elimination Yes (1 pt) Score/Fall Risk Level 0 - 2 = Low Risk Maintained a safe environment, Hourly rounding (assess needs \\T\\ fall precautionary measures) done. Abuse screen: Denies threats or abuse. Nutritional screening: No deficits noted. Tuberculosis screening: No symptoms or risk factors identified. Assessment: 19:50 General: See triage assessment. me1 Vital Signs: 19:30 BP 153 / 105; Pulse 83; Resp 16; Temp 98.1; Pulse Ox 100% ; Weight 72.57 kg; Height 5 me1 ft. 2 in. ; Pain 10/10; 20:04 BP 136 / 98; Pulse 82; Resp 15; Temp 98.1; Pulse Ox 100% ; me1 20:05 Pain 4/10; me1 19:30 Body Mass Index 29.26 (72.57 kg, 157.48 cm) me1 19:30 Pain Scale: Adult me1 20:05 Pain Scale: Adult me1 ED Course: 19:20 Patient arrived in ED. al6 19:24 Kalli Bradshaw PA-C is PHCP. sb4 19:24 Michael Grimm MD is Attending Physician. sb4 19:30 Arm band placed on Patient placed in waiting room. me1 19:33 Triage completed. me1 19:41 Josse Olson MD is Referral Physician. sb4 19:47 Nohemy Clark, RN is Primary Nurse. me1 19:47 EKG done, by ED staff, reviewed by Kalli Bradshaw PA-C. me1 19:50 Patient has correct armband on for positive identification. Provided Education on: POC. me1 Verbalized understanding.. 19:50 No provider procedures requiring assistance completed. Patient did not have IV access me1 during this emergency room visit. Administered Medications: 19:56 Drug: Ketorolac IM 30 mg IM once Route: IM; Site: left deltoid; me1 20:05 Follow up: Pain 4/10 Adult; Response: No adverse reaction; Pain is decreased me1 19:57 Drug: Nitroglycerin Sublingual 0.4 mg Sublingual once Route: Sublingual; me1 20:06 Follow up: Response: No adverse reaction; Pain is decreased me1 19:57 Drug: Acetaminophen PO 1000 mg PO once Route: PO; me1 20:06 Follow up: Response: No adverse reaction; Pain is decreased me1 Medication: 19:50 VIS not applicable for this client. me1 Outcome: 19:42 Discharge ordered by . sb4 20:05 Discharged to home via wheelchair, with family, me1 20:05 Condition: stable 20:05 Discharge instructions given to patient, Instructed on discharge instructions, follow up and referral plans. Demonstrated understanding of instructions, follow-up care, 20:05 Patient left the ED. me1 Signatures: Kalli Bradshaw PA-C PA-C sb4 Nohemy Clark, RN RN me1 Dominga Damian6 Corrections: (The following items were deleted from the chart) 19:34 19:30 Pulse 83bpm; Resp 16bpm; Pulse Ox 100%; Temp 98.1F; 72.57 kg; Height 5 ft. 2 in.; me1 BMI: 29.2; Pain 10/10, Adult; me1
--- NOTE | 2024-07-29 19:42 | EDPHYS ---
Physician Documentation [facility] Name: Geetha Khan Age: 49 yrs Sex: Female : 1975 Arrival Date: 07/29/2024 Time: 19:18 Bed IW6 Private MD: ED Physician Michael Grimm HPI: 07/29 20:20 This 49 yrs old Female presents to ER via EMS with complaints of chest pain, left sb4 shoulder pain. 20:20 chronic chest pain and left sided shoulder pain. 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 reports compliance with anti hypertensives. stopped smoking 5 months ago. 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 - Infectious Disease History:: Denies. - Social history:: Smoking status: Patient reports the use of cigarette tobacco products, denies chronic smoking, but will smoke occasionally. ROS: 20:20 Constitutional: Negative for fever, chills, and weight loss, sb4 20:20 Cardiovascular: Positive for chest pain, 20:20 MS/extremity: Positive for pain, of the left shoulder, 20:20 All other systems are negative, Exam: 20:20 Constitutional: This is a well developed, well nourished patient who is awake, alert, sb4 and in no acute distress. Head/Face: Normocephalic, atraumatic. Eyes: Extra-ocular motions intact. Periorbital areas with no swelling, redness, or edema. ENT: Mucous membranes moist. Cardiovascular: Regular rate and rhythm with a normal S1 and S2. Respiratory: No increased work of breathing, no retractions or nasal flaring. Skin: Warm, dry with normal turgor. Normal color with no rashes, no lesions, and no evidence of cellulitis. Vital Signs: 19:30 BP 153 / 105; Pulse 83; Resp 16; Temp 98.1; Pulse Ox 100% ; Weight 72.57 kg; Height 5 me1 ft. 2 in. ; Pain 10/10; 20:04 BP 136 / 98; Pulse 82; Resp 15; Temp 98.1; Pulse Ox 100% ; me1 20:05 Pain 4/10; me1 19:30 Body Mass Index 29.26 (72.57 kg, 157.48 cm) me1 19:30 Pain Scale: Adult me1 20:05 Pain Scale: Adult me1 MDM: 19:30 Medical Screening Exam initiated sb4 20:22 Data reviewed: vital signs, nurses notes, EKG, and as a result, I will discharge sb4 patient. Care significantly affected by the following chronic conditions: Hypertension. Counseling: I had a detailed discussion with the patient and/or guardian regarding the historical points, exam findings, and any diagnostic results supporting the discharge/admit diagnosis, the presence of at least one elevated blood pressure reading (>120/80) during this emergency department visit, the need for outpatient follow up, for definitive care, to return to the emergency department if symptoms worsen or persist or if there are any questions or concerns that arise at home. 07/29 19:38 Order name: EKG; Complete Time: 19:38 sb4 07/29 19:38 Order name: EKG - Nurse/Tech; Complete Time: 19:47 sb4 07/29 19:38 Order name: Shoulder Immobilizer; Complete Time: 19:57 sb4 EC:10 Rate is 82 beats/min. Rhythm is regular, Normal Sinus Rhythm. IN interval is normal at sb4 176 msec. QRS interval is normal at 82 msec. QT interval is normal at 406 msec. No Q waves. T waves are Normal. No ST changes noted. Clinical impression: LVH and No evidence of ischemia. Interpreted by me. Reviewed by me. Administered Medications: 19:56 Drug: Ketorolac IM 30 mg IM once Route: IM; Site: left deltoid; me1 20:05 Follow up: Pain 4/10 Adult; Response: No adverse reaction; Pain is decreased me1 19:57 Drug: Nitroglycerin Sublingual 0.4 mg Sublingual once Route: Sublingual; me1 20:06 Follow up: Response: No adverse reaction; Pain is decreased me1 19:57 Drug: Acetaminophen PO 1000 mg PO once Route: PO; me1 20:06 Follow up: Response: No adverse reaction; Pain is decreased me1 Disposition Summary: 07/29/24 19:42 Discharge Ordered Notes: Location: Home sb4 Problem: an ongoing problem sb4 Symptoms: have improved sb4 Condition: Stable sb4 Diagnosis - Essential (primary) hypertension sb4 - Pain in left shoulder sb4 - Chronic noncardiac chest pain sb4 Followup: sb4 - With: Josse Olson MD - When: 1 week - Reason: Recheck today's complaints, Re-evaluation by your physician Discharge Instructions: - Discharge Summary Sheet sb4 - Chronic Pain, Adult sb4 - Shoulder Pain sb4 - Managing Your Hypertension sb4 Forms: - Patient Portal Instructions sb4 - Leadership Thank You Letter sb4 Addendum: 07/31/2024 16:37 Co-signature as Attending Physician, Michael Grimm MD I agree with the assessment and c call plan of care. Signatures: Michael Grimm MD MD cha Brown, Sophia, PA-C PA-C sb4 Nohemy Clark, RN RN me1
[2024-07-29] MEDS ORDERED: ACETAMINOPHEN 500 MG TAB ONE (19:50)
[2024-07-29] MEDS ORDERED: KETOROLAC 30 MG/ML INJ ONE (19:50)
[2024-07-29] MEDS ORDERED: NITROGLYCERIN 0.4 MG/TAB SL ONE (19:50)
[2024-07-29 20:26] VITALS: TEMP 98.1; O2SAT 100
[2024-07-29 20:27] VITALS: BP 136/98
--- NOTE | 2024-08-03 16:59 | EKG ---
Test Date: 2024-07-29 Test Time: 19:41:11 Folder Gluer Operator: MEASUREMENT RESULTS: Intervals: Rate: 82 CT: 176 QRSD: 82 QT: 406 QTc: 474 [place]: P: 37 CT: 176 QRS: -5 T: 150 INTERPRETIVE STATEMENTS: Normal sinus rhythm Left ventricular hypertrophy with repolarization abnormality Abnormal ECG Compared to ECG 07/25/2024 21:25:53 Myocardial infarct finding no longer present Electronically Signed On 08-03-24 16:52:14 CDT by Alan Garay
== END 2024-07-29 20:05 | disposition home or self-care (01) ==
LOC: ER 19:18
DX: R07.89 Other chest pain (principal); I10 Essential (primary) hypertension; M25.512 Pain in left shoulder; F17.210 Nicotine dependence, cigarettes, uncomplicated
CPT/HCPCS: 93005; 96372; 99284

== ENCOUNTER 2024-07-30 19:13 | Emergency (ER) | payer OTHER ==
[2024-07-30] MEDS ORDERED: ACETAMINOPHEN 325 MG TABLET ONE (21:43)
--- NOTE | 2024-07-30 22:29 | RAD REPORT ---
EXAMINATION: XR LEFT SHOULDER CLINICAL INDICATION: Female, 49 years old. DEFORMITY TECHNIQUE: Internal and external AP view radiograph of the left shoulder were obtained. COMPARISON: 06/09/2024 FINDINGS: No evidence of fracture or dislocation. Caudal subluxation of the humeral head. No evidence of arthropathy or other focal bone lesion. Soft tissues are unremarkable. IMPRESSION: No acute osseous abnormalities. Caudal subluxation of the humeral head again seen..
[2024-07-30] MEDS ORDERED: DERMABOND SKIN ADHESIVE TOP ONE (22:36)
--- NOTE | 2024-07-30 22:42 | EDPHYS ---
Physician Documentation [facility] Name: Geetha Khan Age: 49 yrs Sex: Female : 1975 Arrival Date: 07/30/2024 Time: 19:13 Bed 4 Private MD: ED Physician Glenis Yu HPI: 07/30 21:21 This 49 yrs old Female presents to ER via EMS with complaints of Pain. gb1 21:21 49-year-old female with left shoulder pain that is chronic she has a history of a gb1 remote CVA 20 years ago. Patient denies any recent trauma and states that her shoulders been "out" for 2 years. She denies any recent trauma that brings her here today.. 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 - Infectious Disease History:: Denies. - Social history:: Smoking status: Patient/guardian denies using tobacco. Exam: 21:21 Constitutional: This is a well developed, well nourished patient who is awake, alert, gb1 and in no acute distress. Head/Face: Normocephalic, atraumatic. Eyes: Pupils equal round and reactive to light, extra-ocular motions intact. Lids and lashes normal. Conjunctiva and sclera are non-icteric and not injected. Cornea within normal limits. Periorbital areas with no swelling, redness, or edema. ENT: Nares patent. No nasal discharge, no septal abnormalities noted. Tympanic membranes are normal and external auditory canals are clear. Oropharynx with no redness, swelling, or masses, exudates, or evidence of obstruction, uvula midline. Mucous membranes moist. Neck: Trachea midline, no thyromegaly or masses palpated, and no cervical lymphadenopathy. Supple, full range of motion without nuchal rigidity, or vertebral point tenderness. No Meningismus. Vital Signs: 20:11 BP 125 / 87; Pulse 102; Resp 19; Temp 98(O); Pulse Ox 100% on R/A; Weight 72.57 kg; cm10 Height 5 ft. 2 in. ; Pain 10/10; 21:40 BP 132 / 98; Pulse 93; Resp 18; Pulse Ox 100% ; al5 22:31 BP 119 / 84; Pulse 70; Resp 16; Pulse Ox 97% ; al5 20:11 Body Mass Index 29.26 (72.57 kg, 157.48 cm) cm10 20:11 Pain Scale: Adult cm10 MDM: 20:34 Medical Screening Exam initiated gb1 22:40 Data reviewed: radiologic studies. ED course: 49-year-old female with a chronic gb1 subluxation of the left shoulder joint. At this time I will not reduce the joint. She does not use that corcoran on the left upper due to chronic sequelae of her CVA. Discharge home with recommendations for pain control and pain management as an outpatient.. 07/30 20:35 Order name: Shoulder Left (2 View) XRAY; Complete Time: 22:32 gb1 Administered Medications: 21:47 Drug: Acetaminophen PO 650 mg PO once Route: PO; al5 22:46 Follow up: Response: No adverse reaction; Pain is decreased al5 Disposition Summary: 07/30/24 22:41 Discharge Ordered Notes: Location: Home gb1 Problem: chronic gb1 Symptoms: are unchanged gb1 Condition: Stable gb1 Diagnosis - Pain in left shoulder gb1 Followup: gb1 - With: Vadim Schaefer MD - When: - Reason: Further diagnostic work-up Discharge Instructions: - Discharge Summary Sheet gb1 - Shoulder Pain gb1 Forms: - Medication Reconciliation Form gb1 - Antibiotic Education gb1 - Prescription Opioid Use gb1 - Patient Portal Instructions gb1 - Leadership Thank You Letter gb1 Signatures: Dispatcher [employer] Kelsey Mireles RN RN cm10 Glenis Yu MD MD gb1 Anayeli Otero RN RN al5
--- NOTE | 2024-07-30 22:42 | ER ---
Nurse's Notes [facility] Name: Geetha Khan Age: 49 yrs Sex: Female : 1975 Arrival Date: 07/30/2024 Time: 19:13 Bed 4 Private MD: Diagnosis: Pain in left shoulder Presentation: 07/30 20:11 Chief complaint: Patient states: chronic left shoulder pain. pt states that the pain is cm10 similar to all her other pain. Coronavirus screen: Client denies travel out of the [place] in the last 14 days. Ebola Screen: Patient denies travel to an Ebola-affected area in the 21 days before illness onset. Initial Sepsis Screen: Does the patient meet any 2 criteria? HR > 90 bpm. Does the patient have a suspected source of infection? No. Patient's initial sepsis screen is negative. Risk Assessment: Do you want to hurt yourself or someone else? Patient reports no desire to harm self or others. Onset of symptoms is unknown. 20:11 Method Of Arrival: EMS: [facility] cm10 20:11 Acuity: CORRINA 4 cm10 Triage Assessment: 20:12 General: Appears in no apparent distress. comfortable, Behavior is calm, cooperative. cm10 Pain: Complains of pain in Left shoulder Pain currently is 10 out of 10 on a pain scale. Is chronic. 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 - Infectious Disease History:: Denies. - Social history:: Smoking status: Patient/guardian denies using tobacco. Screenin:32 [facility] ED Fall Risk Assessment (Adult) History of falling in the last 3 months, al5 including since admission No falls in past 3 months (0 pts) Confusion or Disorientation No (0 pts) Intoxicated or Sedated No (0 pts) Impaired Gait Yes (1 pt) Mobility Assist Device Used Yes (1 pt) Altered Elimination Yes (1 pt) Score/Fall Risk Level 3 or more points = High Risk Oriented to surroundings, Maintained a safe environment, Hourly rounding (assess needs \T\ fall precautionary measures) done. Abuse screen: Denies threats or abuse. Denies injuries from another. Nutritional screening: No deficits noted. Tuberculosis screening: No symptoms or risk factors identified. Assessment: 21:33 General: Appears in no apparent distress. comfortable, Behavior is calm, cooperative. al5 Pain: Complains of pain in left scapular area. Neuro: Level of Consciousness is awake, alert, obeys commands, Oriented to person, place, time, situation. Cardiovascular: Capillary refill < 3 seconds Patient's skin is warm and dry. Respiratory: Airway is patent Respiratory effort is even, unlabored, Respiratory pattern is regular, symmetrical. GI: No signs and/or symptoms were reported involving the gastrointestinal system. : No signs and/or symptoms were reported regarding the genitourinary system. EENT: No signs and/or symptoms were reported regarding the EENT system. Derm: Skin is intact, is healthy with good turgor, Skin is pink, warm \T\ dry. normal. Musculoskeletal: paralysis to L side body due to previous stroke. 22:31 Reassessment: Patient appears in no apparent distress at this time. No changes from al5 previously documented assessment. Patient and/or family updated on plan of care and expected duration. Pain level reassessed. Patient is alert, oriented x 3, equal unlabored respirations, skin warm/dry/pink. Vital Signs: 20:11 BP 125 / 87; Pulse 102; Resp 19; Temp 98(O); Pulse Ox 100% on R/A; Weight 72.57 kg; cm10 Height 5 ft. 2 in. ; Pain 10/10; 21:40 BP 132 / 98; Pulse 93; Resp 18; Pulse Ox 100% ; al5 22:31 BP 119 / 84; Pulse 70; Resp 16; Pulse Ox 97% ; al5 20:11 Body Mass Index 29.26 (72.57 kg, 157.48 cm) cm10 20:11 Pain Scale: Adult cm10 ED Course: 19:17 Patient arrived in ED. im 20:04 Glenis Yu MD is Attending Physician. gb1 20:12 Triage completed. cm10 20:12 Arm band placed on right wrist. Patient placed in waiting room. cm10 21:32 Anayeli Otero, RN is Primary Nurse. al5 21:32 Patient has correct armband on for positive identification. Bed in low position. Call al5 light in reach. Side rails up X 1. Provided Education on: plan of care. 21:33 No provider procedures requiring assistance completed. al5 21:55 Shoulder Left (2 View) XRAY In Process Unspecified. EDMS 22:41 Vadim Schaefer MD is Referral Physician. gb1 22:45 Patient did not have IV access during this emergency room visit. al5 Administered Medications: 21:47 Drug: Acetaminophen PO 650 mg PO once Route: PO; al5 22:46 Follow up: Response: No adverse reaction; Pain is decreased al5 Medication: 21:32 VIS not applicable for this client. al5 Outcome: 22:41 Discharge ordered by . gb1 22:45 Discharged to home via wheelchair, with significant other, al5 22:45 Condition: good 22:45 Discharge instructions given to patient, Instructed on discharge instructions, follow up and referral plans. Demonstrated understanding of instructions, follow-up care, 22:46 Patient left the ED. al5 Signatures: Dispatcher [employer] EDWY Verna Jhaveri Clarissa, RN RN cm10 Glenis Yu MD MD [facility] Anayeli Otero RN RN al5
[2024-07-30 23:26] VITALS: TEMP 98
[2024-07-30 23:29] VITALS: BP 119/84; O2SAT 97
== END 2024-07-30 22:46 | disposition home or self-care (01) ==
LOC: ER 19:13
DX: M25.512 Pain in left shoulder (principal); I69.354 Hemiplegia and hemiparesis following cerebral infarction affecting left non-dominant side
CPT/HCPCS: 99283

== ENCOUNTER 2024-08-01 19:37 | Emergency (ER) | payer OTHER ==
--- NOTE | 2024-08-01 21:47 | EDPHYS ---
Physician Documentation [facility] Name: Geetha Khan Age: 49 yrs Sex: Female : 1975 Arrival Date: 08/01/2024 Time: 19:37 Bed IW1 Private MD: ED Physician Kye De Anda HPI: 08/01 21:17 This 49 yrs old Female presents to ER via EMS with complaints of chest, shoulder pain. rt 21:17 Patient presents to the ED with ongoing chest, left shoulder pain, chronic in nature. rt Denies other acute complaints at this time, is not take anything for the symptoms, she is well-known to this emergency department, said multiple workups for both of these complaints.. Historical: - Allergies: 20:42 Aspirin; cm10 20:42 CRANBERRY; cm10 20:42 FISH PRODUCT DERIVATIVES; cm10 20:42 GRAPEFRUIT; cm10 20:42 mushroom; cm10 20:42 SHELLFISH; cm10 - PMHx: 20:42 Cerebrovascular accident; Chronic obstructive lung disease; Hypertensive disorder; Left cm10 sided paralysis post CVA; Myocardial infarction; Seizure; - Immunization history:: Adult Immunizations unknown. - Infectious Disease History:: Denies. - Social history:: Smoking status: Patient/guardian denies using tobacco. - Family history:: not pertinent. ROS: 21:17 Constitutional: Negative for fever, chills, and weight loss, Respiratory: Negative for rt shortness of breath, cough, wheezing, and pleuritic chest pain, Abdomen/GI: Negative for abdominal pain, nausea, vomiting, diarrhea, and constipation, Skin: Negative for injury, rash, and discoloration, Neuro: Negative for headache, weakness, numbness, tingling, and seizure, 21:17 Cardiovascular: Positive for chest pain, Negative for edema, 21:17 MS/extremity: Positive for pain, Negative for injury or acute deformity, Exam: 21:17 Constitutional: This is a well developed, well nourished patient who is awake, alert, rt and in no acute distress. Head/Face: Normocephalic, atraumatic. Chest/axilla: Normal chest wall appearance and motion. Nontender with no deformity. No lesions are appreciated. Cardiovascular: Regular rate and rhythm with a normal S1 and S2. No gallops, murmurs, or rubs. Normal PMI, no JVD. No pulse deficits. Respiratory: Lungs have equal breath sounds bilaterally, clear to auscultation and percussion. No rales, rhonchi or wheezes noted. No increased work of breathing, no retractions or nasal flaring. Abdomen/GI: Soft, non-tender, with normal bowel sounds. No distension or tympany. No guarding or rebound. No evidence of tenderness throughout. Skin: Warm, dry with normal turgor. Normal color with no rashes, no lesions, and no evidence of cellulitis. MS/ Extremity: Pulses equal, no cyanosis. Neurovascular intact. Full, normal range of motion. Neuro: Awake and alert, GCS 15, oriented to person, place, time, and situation. Cranial nerves II-XII grossly intact. Motor strength 5/5 in all extremities. Sensory grossly intact. Cerebellar exam normal. Normal gait. 21:17 ECG was reviewed by the Attending Physician. Vital Signs: 20:41 BP 148 / 106; Pulse 99; Resp 18; Temp 97.3(TE); Pulse Ox 100% on R/A; Weight 72.57 kg; cm10 Height 5 ft. 2 in. ; Pain 10/10; 20:41 Body Mass Index 29.26 (72.57 kg, 157.48 cm) cm10 20:41 Pain Scale: Adult cm10 MDM: 20:42 Medical Screening Exam initiated rt 22:50 Differential Diagnosis Chronic chest pain, ACS, chronic shoulder pain. Data reviewed: rt vital signs, nurses notes, lab test result(s), EKG. Consideration of Admission/Observation Escalation of care including admission/observation considered. Patient with frequent evaluations for this chronic chest pain, do not believe that she would benefit from admission to the hospital. Test considered but Not performed: Other Details Patient with a negative EKG, troponin, x-ray was performed of the shoulder just a few days ago. Do not feel that repeat imaging, further laboratory evaluation is indicated.. Care significantly affected by the following chronic conditions: Chronic Obstructive Pulmonary Disease. Counseling: I had a detailed discussion with the patient and/or guardian regarding the historical points, exam findings, and any diagnostic results supporting the discharge/admit diagnosis, lab results, the need for outpatient follow up. 08/01 20:44 Order name: Troponin High Sensitivity; Complete Time: 21:34 cm10 08/01 20:44 Order name: EKG - Nurse/Tech; Complete Time: 20:50 cm10 EC:17 Rate is 88 beats/min. Rhythm is regular, Normal Sinus Rhythm with No ectopy, LVH rt present with repolarization abnormality. RI interval is normal. QRS interval is normal. QT interval is normal. No Q waves. Interpreted by me. Administered Medications: No medications were administered Disposition Summary: 08/01/24 21:45 Discharge Ordered Notes: Location: Home rt Problem: chronic rt Symptoms: are unchanged rt Condition: Stable rt Diagnosis - Chronic chest pain rt - Chronic pain to left shoulder rt Followup: rt - With: Private Physician - When: 2 - 3 days - Reason: Discharge Instructions: - Discharge Summary Sheet rt - Chronic Pain, Adult rt Forms: - Medication Reconciliation Form rt - Antibiotic Education rt - Prescription Opioid Use rt - Patient Portal Instructions rt - Leadership Thank You Letter rt Signatures: Dispatcher [employer] EDKye Lima MD MD rt Kelsey Khan RN RN cm10 Corrections: (The following items were deleted from the chart) 20:45 20:45 Troponin High Sensitivity+C.LAB.BRZ ordered. EDSC EDMS
--- NOTE | 2024-08-01 21:47 | ER ---
Nurse's Notes [facility] Name: Geetha Khan Age: 49 yrs Sex: Female : 1975 Arrival Date: 08/01/2024 Time: 19:37 Bed IW1 Private MD: Diagnosis: Chronic chest pain;Chronic pain to left shoulder Presentation: 08/01 20:41 Chief complaint: Patient states: LEFT SHOULDER PAIN ONSET 1HR [facility] DIRECTOR. PT STATES THAT THE cm10 PAIN IS SIMILAR TO HER CHRONIC SHOULDER PAIN. Coronavirus screen: Client denies travel out of the [place] in the last 14 days. Ebola Screen: Patient denies travel to an Ebola-affected area in the 21 days before illness onset. Initial Sepsis Screen: Does the patient meet any 2 criteria? HR > 90 bpm. Does the patient have a suspected source of infection? No. Patient's initial sepsis screen is negative. Risk Assessment: Do you want to hurt yourself or someone else? Patient reports no desire to harm self or others. Onset of symptoms was August 01, 2024. 20:41 Acuity: CORRINA 4 cm10 20:41 Method Of Arrival: EMS: [facility] cm10 Triage Assessment: 20:43 General: Appears in no apparent distress. comfortable, Behavior is calm, cooperative. cm10 Pain: Complains of pain in chest and anterior aspect of left shoulder Pain currently is 10 out of 10 on a pain scale. Neuro: No deficits noted. Level of Consciousness is awake, alert, obeys commands, Oriented to person, place, time, situation, Appropriate for age. Respiratory: No deficits noted. Airway is patent Respiratory effort is even, unlabored, Respiratory pattern is regular, symmetrical. Historical: - Allergies: 20:42 Aspirin; cm10 20:42 CRANBERRY; cm10 20:42 FISH PRODUCT DERIVATIVES; cm10 20:42 GRAPEFRUIT; cm10 20:42 mushroom; cm10 20:42 SHELLFISH; cm10 - PMHx: 20:42 Cerebrovascular accident; Chronic obstructive lung disease; Hypertensive disorder; Left cm10 sided paralysis post CVA; Myocardial infarction; Seizure; - Immunization history:: Adult Immunizations unknown. - Infectious Disease History:: Denies. - Social history:: Smoking status: Patient/guardian denies using tobacco. - Family history:: not pertinent. Screenin:35 [facility] ED Fall Risk Assessment (Adult) History of falling in the last 3 months, cm10 including since admission Yes- fall prone (multiple falls) (3 pts) Confusion or Disorientation No (0 pts) Intoxicated or Sedated No (0 pts) Impaired Gait Yes (1 pt) Mobility Assist Device Used Yes (1 pt) Altered Elimination Yes (1 pt) Score/Fall Risk Level 3 or more points = High Risk Oriented to surroundings, Maintained a safe environment, Hourly rounding (assess needs \T\ fall precautionary measures) done. Abuse screen: Denies threats or abuse. Denies injuries from another. Nutritional screening: No deficits noted. Tuberculosis screening: No symptoms or risk factors identified. Vital Signs: 20:41 BP 148 / 106; Pulse 99; Resp 18; Temp 97.3(TE); Pulse Ox 100% on R/A; Weight 72.57 kg; cm10 Height 5 ft. 2 in. ; Pain 10/10; 20:41 Body Mass Index 29.26 (72.57 kg, 157.48 cm) cm10 20:41 Pain Scale: Adult cm10 ED Course: 19:53 Patient arrived in ED. rv1 19:54 Kye De Anda MD is Attending Physician. rt 20:42 Triage completed. cm10 20:42 Arm band placed on right wrist. cm10 20:50 EKG done, by ED staff, reviewed by Kye De Anda MD. cm10 20:55 Initial lab(s) drawn, by me, sent to lab. cm10 21:35 Patient has correct armband on for positive identification. Provided Education on: ER cm10 process and procedures. 21:50 No provider procedures requiring assistance completed. Patient did not have IV access cm10 during this emergency room visit. Administered Medications: No medications were administered Medication: 21:36 VIS not applicable for this client. cm10 Outcome: 21:45 Discharge ordered by . rt 21:50 Discharged to home via wheelchair, cm10 21:50 Condition: good 21:50 Discharge instructions given to patient, Instructed on discharge instructions, follow up and referral plans. Demonstrated understanding of instructions, follow-up care, 21:50 Patient left the ED. cm10 Signatures: Kye De Anda MD MD rt Autumn Rodriguez rv1 Kelsey Khan RN RN cm10 Corrections: (The following items were deleted from the chart) 20:51 20:41 Method Of Arrival: Wheelchair cm10 cm10
[2024-08-01 21:59] VITALS: BP 148/106; TEMP 97.3; O2SAT 100
== END 2024-08-01 21:50 | disposition home or self-care (01) ==
LOC: ER 19:37
DX: R07.9 Chest pain, unspecified (principal); M25.512 Pain in left shoulder; I10 Essential (primary) hypertension; I25.2 Old myocardial infarction
CPT/HCPCS: 36415; 84484; 93005; 99284

== ENCOUNTER 2024-08-02 20:45 | Emergency (ER) | payer OTHER ==
--- NOTE | 2024-08-02 22:15 | ER ---
Nurse's Notes [facility] Name: Geetha Khan Age: 49 yrs Sex: Female : 1975 Arrival Date: 08/02/2024 Time: 20:45 Bed IW1 Private MD: Diagnosis: Chest pain, unspecified;Pain in left shoulder Presentation: 08/02 21:11 Chief complaint: Patient states: CHRONIC LEFT SHOULDER PAIN AND LEFT SIDED CHEST PAIN. cm10 PT SEEN HERE YESTERDAY FOR THE SAME ISSUE. Coronavirus screen: Client denies travel out of the [place] in the last 14 days. Ebola Screen: Patient denies travel to an Ebola-affected area in the 21 days before illness onset. Initial Sepsis Screen: Does the patient meet any 2 criteria? HR > 90 bpm. Does the patient have a suspected source of infection? No. Patient's initial sepsis screen is negative. Risk Assessment: Do you want to hurt yourself or someone else? Patient reports no desire to harm self or others. Onset of symptoms was August 02, 2024. 21:11 Method Of Arrival: EMS: [facility] 21:11 Acuity: CORRINA 4 cm10 Triage Assessment: 21:13 General: Appears in no apparent distress. comfortable, Behavior is calm, cooperative. cm10 Neuro: No deficits noted. Level of Consciousness is awake, alert, obeys commands, Oriented to person, place, time, situation, Appropriate for age. Respiratory: No deficits noted. Airway is patent Respiratory effort is even, unlabored, Respiratory pattern is regular, symmetrical. Historical: - Allergies: 21:12 Aspirin; cm10 21:12 CRANBERRY; cm10 21:12 FISH PRODUCT DERIVATIVES; cm10 21:12 GRAPEFRUIT; cm10 21:12 mushroom; cm10 21:12 SHELLFISH; cm10 - PMHx: 21:12 Cerebrovascular accident; Chronic obstructive lung disease; Hypertensive disorder; Left cm10 sided paralysis post CVA; Myocardial infarction; Seizure; Chronic shoulder pain; - Immunization history:: Adult Immunizations up to date. - Infectious Disease History:: Denies. - Social history:: Smoking status: Patient reports the use of cigarette tobacco products, unknown amount. Assessment: 22:25 Reassessment: Patient and/or family updated on plan of care and expected duration. Pain br2 level reassessed. Patient states symptoms have not improved. Vital Signs: 21:11 BP 123 / 86; Pulse 99; Resp 18; Temp 97.3(TE); Pulse Ox 97% on R/A; Weight 74.84 kg; cm10 Height 5 ft. 2 in. ; Pain 10/10; 21:11 Body Mass Index 30.18 (74.84 kg, 157.48 cm) cm10 21:11 Pain Scale: Adult cm10 ED Course: 20:48 Patient arrived in ED. im 20:56 Michael Nguyen PA is PHCP. cp 20:56 Kye De Anda MD is Attending Physician. cp 21:12 Triage completed. cm10 21:13 Arm band placed on right wrist. Patient placed in waiting room. EKG completed in cm10 triage. Results shown to MD. 21:24 Troponin High Sensitivity Sent. vc1 22:25 No provider procedures requiring assistance completed. Patient did not have IV access br2 during this emergency room visit. intact, bleeding controlled, No redness/swelling at site. Pressure dressing applied. Administered Medications: No medications were administered Medication: 22:25 VIS not applicable for this client. br2 Outcome: 22:14 Discharge ordered by MD. cp 22:25 Discharged to home ambulatory, br2 22:25 Condition: stable 22:25 Discharge instructions given to patient, Instructed on discharge instructions, Demonstrated understanding of instructions, follow-up care, medications, Prescriptions given X 2, 22:27 Patient left the ED. br2 Signatures: Michael Nguyen PA PA cp Calcote, Vanessa, RN RN vc1 Verna Jhaveri Clarissa RN RN cm10 Destiney Moura RN RN br2
--- NOTE | 2024-08-02 22:15 | EDPHYS ---
Physician Documentation [facility] Name: Geetha hKan Age: 49 yrs Sex: Female : 1975 Arrival Date: 08/02/2024 Time: 20:45 Bed IW1 Private MD: ED Physician Kye De Anda HPI: 08/02 21:05 This 49 yrs old Female presents to ER via EMS with complaints of Pain. cp 21:05 The patient or guardian complains of pain, that is chronic. The complaints affect the cp left shoulder. Associated signs and symptoms: Pertinent positives: left side chest pain, Pertinent negatives: deformity. 21:05 Severity of symptoms: in the emergency department the symptoms are unchanged, despite cp EMS interventions. Historical: - Allergies: 21:12 Aspirin; cm10 21:12 CRANBERRY; cm10 21:12 FISH PRODUCT DERIVATIVES; cm10 21:12 GRAPEFRUIT; cm10 21:12 mushroom; cm10 21:12 SHELLFISH; cm10 - PMHx: 21:12 Cerebrovascular accident; Chronic obstructive lung disease; Hypertensive disorder; Left cm10 sided paralysis post CVA; Myocardial infarction; Seizure; Chronic shoulder pain; - Immunization history:: Adult Immunizations up to date. - Infectious Disease History:: Denies. - Social history:: Smoking status: Patient reports the use of cigarette tobacco products, unknown amount. ROS: 21:10 Eyes: Negative for injury, pain, redness, and discharge, cp 21:10 Constitutional: Negative for body aches, chills, fever, poor PO intake, 21:10 Neck: Negative for pain with movement, pain at rest, stiffness, 21:10 Cardiovascular: Positive for chest pain, of the left side of chest, 21:10 Respiratory: Negative for cough, shortness of breath, wheezing, 21:10 Abdomen/GI: Negative for abdominal pain, vomiting, diarrhea, constipation, 21:10 Back: Negative for pain at rest, pain with movement, 21:10 MS/extremity: Positive for pain, of the left shoulder, Negative for injury or acute deformity, 21:10 Neuro: Negative for altered mental status, 21:10 All other systems are negative, Exam: 21:13 ECG was reviewed by the Attending Physician. cp 21:15 Constitutional: The patient appears in no acute distress, alert, awake, cp non-diaphoretic, non-toxic, well developed, well nourished, 21:15 Head/Face: Normocephalic, atraumatic. cp 21:15 Eyes: Periorbital structures: appear normal, Conjunctiva: normal, no exudate, no injection, Sclera: no appreciated abnormality, Lids and lashes: appear normal, bilaterally, 21:15 ENT: External ear(s): are unremarkable, Nose: is normal, Mouth: Lips: moist, Oral mucosa: moist, Posterior pharynx: Airway: no evidence of obstruction, patent, 21:15 Neck: ROM/movement: is normal, is supple, without pain, no range of motions limitations, 21:15 Chest/axilla: Inspection: normal, 21:15 Cardiovascular: Rate: normal, Rhythm: regular, Edema: is not appreciated, JVD: is not appreciated, 21:15 Respiratory: the patient does not display signs of respiratory distress, Respirations: normal, no use of accessory muscles, no retractions, labored breathing, is not present, Breath sounds: are clear throughout, no decreased breath sounds, no stridor, no wheezing, 21:15 Abdomen/GI: Exam negative for discomfort, distension, guarding, Inspection: abdomen appears normal, 21:15 Neuro: Orientation: to person, place \T\ time. Mentation: is normal, Vital Signs: 21:11 BP 123 / 86; Pulse 99; Resp 18; Temp 97.3(TE); Pulse Ox 97% on R/A; Weight 74.84 kg; cm10 Height 5 ft. 2 in. ; Pain 10/10; 21:11 Body Mass Index 30.18 (74.84 kg, 157.48 cm) cm10 21:11 Pain Scale: Adult cm10 MDM: 21:02 Medical Screening Exam initiated cp 21:20 Differential diagnosis: chronic pain, shoulder dislocation, shoulder subluxation, acute cp FL. 22:14 Data reviewed: vital signs, nurses notes, lab test result(s), EKG, and as a result, I will discharge patient. 22:14 I considered the following discharge prescriptions or medication management in the emergency department Medications were administered in the Emergency Department. See MAR. Independent interpretation of the following test(s) in the Emergency Department EKG: See my EKG interpretation above. Care significantly affected by the following chronic conditions: Hypertension. Counseling: I had a detailed discussion with the patient and/or guardian regarding the historical points, exam findings, and any diagnostic results supporting the discharge/admit diagnosis, lab results, to return to the emergency department if symptoms worsen or persist or if there are any questions or concerns that arise at home. 08/02 21:00 Order name: Troponin High Sensitivity; Complete Time: 22:00 cp 08/02 22:00 Interpretation: Reviewed. cp 08/02 21:00 Order name: EKG; Complete Time: : cp 08/02 21:00 Order name: EKG - Nurse/Tech; Complete Time: 21:11 cp EC:13 Rate is 97 beats/min. Rhythm is regular. UT interval is normal. QRS interval is normal. cp QT interval is normal. T waves are Inverted in leads I, II, aVL, V5, V6. Interpreted by me. Reviewed by me. Administered Medications: No medications were administered Disposition: 08/03 01:21 Co-signature as Attending Physician, Kye De Anda MD I reviewed the patient's care rt provided by the Advanced Practice Provider and agree with the diagnosis and treatment plan. Disposition Summary: 08/02/24 22:14 Discharge Ordered Notes: Location: Home cp Problem: an ongoing problem cp Symptoms: are unchanged cp Condition: Stable cp Diagnosis - Chest pain, unspecified cp - Pain in left shoulder cp Followup: cp - With: Private Physician - When: 2 - 3 days - Reason: Recheck today's complaints Discharge Instructions: - Discharge Summary Sheet cp - Nonspecific Chest Pain, Adult cp - Shoulder Pain cp Forms: - Medication Reconciliation Form cp - Antibiotic Education cp - Prescription Opioid Use cp - Patient Portal Instructions cp - Leadership Thank You Letter cp Prescriptions: - Cyclobenzaprine 10 mg Oral Tablet - take 1 tablet ORAL route every 8 hours As needed; 30 tablet; Refills: 0, cp Product Selection Permitted - Diclofenac Sodium 75 mg Oral Tablet Sustained Release - take 1 tablet ORAL route 2 times per day; 30 tablet; Refills: 0, Product cp Selection Permitted Signatures: Dispatcher [employer] EDMS Michael Nguyen PA PA cp [place], Ryan, MD MD rt Kelsey Khan RN RN cm10 Corrections: (The following items were deleted from the chart) 08/02 21:00 21:00 Troponin High Sensitivity+C.LAB.BRZ ordered. EDAK EDMS 21:43 21:00 Sling ordered. cp vc1 08/03 20:54 20:51 Cardiovascular: Positive for chest pain, of the left side of chest, cp cp 20:54 20:51 MS/extremity: Positive for pain, of the left shoulder, Negative for injury or cp acute deformity, cp 20:54 20:51 Respiratory: Negative for cough, shortness of breath, wheezing, cp cp 20:54 20:51 Abdomen/GI: Negative for abdominal pain, vomiting, diarrhea, constipation, cp cp 20:54 20:51 Eyes: Negative for injury, pain, redness, and discharge, cp cp 20:54 20:51 Constitutional: Negative for body aches, chills, fever, poor PO intake, cp cp 20:54 20:51 Neck: Negative for pain with movement, pain at rest, stiffness, cp cp 20:54 20:51 Back: Negative for pain at rest, pain with movement, cp cp 20:54 20:51 Neuro: Negative for altered mental status, cp cp 20:54 20:51 All other systems are negative, cp cp
[2024-08-02 22:37] VITALS: BP 123/86; TEMP 97.3; O2SAT 97
== END 2024-08-02 22:27 | disposition home or self-care (01) ==
LOC: ER 20:45
DX: R07.9 Chest pain, unspecified (principal); M25.512 Pain in left shoulder; I10 Essential (primary) hypertension; I25.2 Old myocardial infarction; Z72.0 Tobacco use
CPT/HCPCS: 36415; 84484; 93005; 99284

== ENCOUNTER 2024-08-11 20:03 | Emergency (ER) | payer OTHER ==
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
[2024-08-11] MEDS ORDERED: IBUPROFEN 400 MG TAB ONE (20:18)
--- NOTE | 2024-08-11 20:37 | ER ---
Nurse's Notes [facility] Name: Geetha Khan Age: 49 yrs Sex: Female : 1975 Arrival Date: 08/11/2024 Time: 20:03 Bed 10 Private MD: Diagnosis: Pain in left shoulder Presentation: 08/11 20:05 Chief complaint: EMS states: LEFT SHOULDER PAIN X 1 HOUR. FORGOT TO TAKE BP MEDICATIONS db TODAY. Coronavirus screen: Client denies travel out of the [place] in the last 14 days. At this time, the client does not indicate any symptoms associated with coronavirus-19. Ebola Screen: Patient negative for fever greater than or equal to 101.5 degrees Fahrenheit, and additional compatible Ebola Virus Disease symptoms Patient denies exposure to infectious person. Patient denies travel to an Ebola-affected area in the 21 days before illness onset. No symptoms or risks identified at this time. Initial Sepsis Screen: Does the patient meet any 2 criteria? No. Patient's initial sepsis screen is negative. Does the patient have a suspected source of infection? No. Patient's initial sepsis screen is negative. Risk Assessment: Do you want to hurt yourself or someone else? Patient reports no desire to harm self or others. Onset of symptoms was August 11, 2024. 20:05 Method Of Arrival: EMS: [facility] db 20:05 Acuity: CORRINA 3 db Triage Assessment: 20:14 General: Appears in no apparent distress. comfortable, Behavior is calm, cooperative. db Pain: Complains of pain in anterior aspect of left shoulder and posterior aspect of left shoulder. Neuro: Level of Consciousness is awake, alert, obeys commands, Oriented to person, place, time, situation. Historical: - Allergies: 20:14 Aspirin; db 20:14 CRANBERRY; db 20:14 FISH PRODUCT DERIVATIVES; db 20:14 GRAPEFRUIT; db 20:14 mushroom; db 20:14 SHELLFISH; db - PMHx: 20:14 Cerebrovascular accident; Chronic obstructive lung disease; chronic shoulder pain; db Hypertensive disorder; Left sided paralysis post CVA; Seizure; Myocardial infarction; - Immunization history:: Adult Immunizations unknown. - Infectious Disease History:: Denies. - Social history:: Smoking status: Patient reports the use of cigarette tobacco products, smokes one-half pack cigarettes per day. Screenin:29 [facility] ED Fall Risk Assessment (Adult) History of falling in the last 3 months, db including since admission No falls in past 3 months (0 pts) Confusion or Disorientation No (0 pts) Intoxicated or Sedated No (0 pts) Impaired Gait Yes (1 pt) Mobility Assist Device Used Yes (1 pt) Altered Elimination No (0 pt) Score/Fall Risk Level 0 - 2 = Low Risk Oriented to surroundings, Maintained a safe environment. Abuse screen: Denies threats or abuse. Denies injuries from another. Nutritional screening: No deficits noted. Tuberculosis screening: No symptoms or risk factors identified. Assessment: 20:15 Reassessment: Patient appears in no apparent distress at this time. Patient and/or db family updated on plan of care and expected duration. Pain level reassessed. Patient is alert, oriented x 3, equal unlabored respirations, skin warm/dry/pink. SEE TRIAGE FOR INITIAL ASSESSMENT. 20:29 Reassessment: Patient appears in no apparent distress at this time. Patient and/or db family updated on plan of care and expected duration. Pain level reassessed. Patient is alert, oriented x 3, equal unlabored respirations, skin warm/dry/pink. Vital Signs: 20:05 BP 162 / 110; Pulse 74; Resp 16; Temp 97.9; Pulse Ox 100% ; Weight 68.04 kg; Height 5 db ft. 2 in. ; 20:05 Body Mass Index 27.44 (68.04 kg, 157.48 cm) db ED Course: 20:05 Patient arrived in ED. sb4 20:05 Kalli Bradshaw PA-C [facility]. sb4 20:05 Kye De Anda MD is Attending Physician. sb4 20:12 Yeimy Martel, YANETH is Primary Nurse. db 20:14 Triage completed. db 20:14 Arm band placed on Patient placed in an exam room. db 20:29 Patient has correct armband on for positive identification. Side rails up X 1. Provided db Education on: DISCHARGE AND FOLLOWUP. Warm blanket given. 20:29 No provider procedures requiring assistance completed. Patient did not have IV access db during this emergency room visit. Administered Medications: 20:15 Drug: Ibuprofen PO 800 mg PO once Route: PO; db 20:31 Follow up: Response: No adverse reaction db Medication: 20:29 VIS not applicable for this client. db Outcome: 20:06 Discharge ordered by MD. mattson 20:29 Discharged to home via wheelchair, with family, sean 20:29 Condition: stable 20:29 Discharge instructions given to patient, Instructed on discharge instructions, follow up and referral plans. 20:36 Patient left the ED. db Signatures: Yeimy Martel RN RN Kalli Painter, PAGiseleC PAHermes mattson Corrections: (The following items were deleted from the chart) 20:14 20:14 Social history: Smoking status: Patient/guardian denies using tobacco, db db
[2024-08-11 21:32] VITALS: BP 162/110; TEMP 97.9; O2SAT 100
== END 2024-08-11 20:36 | disposition home or self-care (01) ==
LOC: ER 20:03
DX: M25.512 Pain in left shoulder (principal)
CPT/HCPCS: 99283

== ENCOUNTER 2024-10-20 20:05 | Emergency (ER) | payer OTHER ==
[2024-10-20] MEDS ORDERED: KETOROLAC 10 MG TAB ONE (20:48)
[2024-10-20] MEDS ORDERED: DIAZEPAM 5 MG TABLET ONE (20:49)
--- NOTE | 2024-10-20 21:15 | ER ---
Nurse's Notes [facility] Name: Geetha Khan Age: 49 yrs Sex: Female : 1975 Arrival Date: 10/20/2024 Time: 20:05 Bed 25 Private MD: Diagnosis: Chest pain, unspecified Presentation: 10/20 20:44 Chief complaint: Patient states: I got into an argument at home and felt anxious so I jb4 came in because my chest started hurting. Coronavirus screen: At this time, the client does not indicate any symptoms associated with coronavirus-19. Ebola Screen: No symptoms or risks identified at this time. Initial Sepsis Screen: Does the patient meet any 2 criteria? No. Patient's initial sepsis screen is negative. Does the patient have a suspected source of infection? No. Patient's initial sepsis screen is negative. Risk Assessment: Do you want to hurt yourself or someone else? Patient reports no desire to harm self or others. Onset of symptoms was October 20, 2024. Transition of care: patient was not received from another setting of care. 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 - Infectious Disease History:: Denies. - Social history:: Smoking status: Patient reports the use of cigarette tobacco products, 2 cigarretes per day. Screenin:05 [facility] ED Fall Risk Assessment (Adult) History of falling in the last 3 months, tb4 including since admission No falls in past 3 months (0 pts) Confusion or Disorientation No (0 pts) Intoxicated or Sedated No (0 pts) Impaired Gait Yes (1 pt) Mobility Assist Device Used Yes (1 pt) Altered Elimination No (0 pt) Score/Fall Risk Level 0 - 2 = Low Risk Oriented to surroundings, Maintained a safe environment. Abuse screen: Denies threats or abuse. Nutritional screening: No deficits noted. Tuberculosis screening: No symptoms or risk factors identified. Assessment: 21:05 Reassessment: see triage note. General: Appears in no apparent distress. Behavior is tb4 calm, cooperative. Pain: Denies pain. Neuro: No deficits noted. Level of Consciousness is awake, alert, obeys commands, Oriented to person, place, time, situation, Teacher Specialist are equal bilaterally Weakness in left hand(s) arm(s) leg(s) foot/feet Gait is unsteady, Patient in wheel chair. Speech is normal. Cardiovascular: Denies chest pain, Patient states chest pain is no longer there and anxiety is gone. Respiratory: No deficits noted. Airway is patent Trachea midline Respiratory effort is even, unlabored, Respiratory pattern is regular, symmetrical. GI: No signs and/or symptoms were reported involving the gastrointestinal system. : No signs and/or symptoms were reported regarding the genitourinary system. Vital Signs: 20:44 BP 136 / 85; Pulse 85; Resp 16; Temp 97.6(O); Pulse Ox 100% on R/A; Weight 58.97 kg; jb4 Height 5 ft. 2 in. ; Pain 10/10; 21:05 BP 134 / 96; Pulse 87; Resp 18; Temp 98.1; Pulse Ox 100% on R/A; Pain 0/10; tb4 20:44 Body Mass Index 23.78 (58.97 kg, 157.48 cm) jb4 20:44 Pain Scale: Adult jb4 21:05 Pain Scale: Adult 4 ED Course: 20:16 Patient arrived in ED. jj6 20:16 Michael Nguyen PA is PHCP. cp 20:16 Gene Medrano MD is Attending Physician. cp 20:46 Triage completed. jb4 20:46 Arm band placed on right wrist. jb4 21:05 Patient has correct armband on for positive identification. Call light in reach. tb4 Provided Education on:. Client placed on continuous cardiac and pulse oximetry monitoring. NIBP monitoring applied. lunchroom monitor on. Door closed. Lights dimmed. 21:05 No provider procedures requiring assistance completed. Patient did not have IV access tb4 during this emergency room visit. Administered Medications: 20:52 Drug: Diazepam PO 5 mg PO once Route: PO; br2 21:27 Follow up: Response: No adverse reaction; Anxiety decreased tb4 20:52 Drug: Ketorolac PO 10 mg PO once Route: PO; br2 21:27 Follow up: Response: No adverse reaction; Pain is decreased tb4 Medication: 21:05 VIS not applicable for this client. tb4 Outcome: 21:15 Discharge ordered by . cp 21:28 Discharged to home via wheelchair, tb4 21:28 Condition: stable 21:28 Discharge instructions given to patient, Instructed on discharge instructions, follow up and referral plans. Demonstrated understanding of instructions, follow-up care, 21:29 Patient left the ED. tb4 Signatures: Michael Nguyen PA PA cp Bryson, James, RN RN jb4 Bia Garciaj6 Destiney Moura RN RN br2 Tamela Bradshaw RN RN tb4
--- NOTE | 2024-10-20 21:15 | EDPHYS ---
Physician Documentation [facility] Name: Geetha Khan Age: 49 yrs Sex: Female : 1975 Arrival Date: 10/20/2024 Time: 20:05 Bed 25 Private MD: ED Physician Gene Medrano HPI: 10/20 20:20 This 49 yrs old Female presents to ER via EMS with complaints of Chest Pain. cp 20:20 The patient or guardian reports chest pain that is located primarily in the anterior cp chest wall, left. 20:20 Onset: just prior to arrival, after argument with significant other. cp 20:20 The chest pain is described as constant. Severity of pain: in the emergency department cp the pain is unchanged despite EMS interventions. 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 - Infectious Disease History:: Denies. - Social history:: Smoking status: Patient reports the use of cigarette tobacco products, 2 cigarretes per day. ROS: 20:25 Constitutional: Negative for fever, cp 20:25 Eyes: Negative for injury, pain, redness, and discharge, cp 20:25 Cardiovascular: Positive for chest pain, 20:25 Respiratory: Negative for cough, wheezing, 20:25 Abdomen/GI: Negative for abdominal pain, vomiting, diarrhea, constipation, Exam: 20:23 ECG was reviewed by the Attending Physician. cp 20:28 Constitutional: The patient appears in no acute distress, alert, awake, cp non-diaphoretic, non-toxic, well developed, well nourished, anxious, tearful 20:28 Head/Face: Normocephalic, atraumatic. cp 20:28 Eyes: Periorbital structures: appear normal, Conjunctiva: normal, no exudate, no injection, Sclera: no appreciated abnormality, Lids and lashes: appear normal, bilaterally, 20:28 ENT: External ear(s): are unremarkable, Nose: is normal, Mouth: Lips: moist, Oral mucosa: moist, Posterior pharynx: Airway: no evidence of obstruction, patent, 20:28 Chest/axilla: Inspection: normal, 20:28 Cardiovascular: Rate: normal, Rhythm: regular, Edema: is not appreciated, JVD: is not appreciated, 20:28 Respiratory: the patient does not display signs of respiratory distress, Respirations: normal, no use of accessory muscles, no retractions, labored breathing, is not present, Breath sounds: are clear throughout, no decreased breath sounds, no stridor, no wheezing, 20:28 Abdomen/GI: Inspection: abdomen appears normal, Palpation: abdomen is soft and non-tender, in all quadrants, 20:28 Back: pain, is absent, ROM is normal, 20:28 Neuro: Orientation: to person, place \T\ time. Mentation: is normal, Vital Signs: 20:44 BP 136 / 85; Pulse 85; Resp 16; Temp 97.6(O); Pulse Ox 100% on R/A; Weight 58.97 kg; jb4 Height 5 ft. 2 in. ; Pain 10/10; 21:05 BP 134 / 96; Pulse 87; Resp 18; Temp 98.1; Pulse Ox 100% on R/A; Pain 0/10; tb4 20:44 Body Mass Index 23.78 (58.97 kg, 157.48 cm) jb4 20:44 Pain Scale: Adult jb4 21:05 Pain Scale: Adult tb4 MDM: 20:37 Medical Screening Exam initiated cp 21:15 Data reviewed: vital signs, nurses notes, EKG. 21:15 Differential diagnosis: acute myocardial infarction, chest wall pain, costochondritis, cp pleurisy, pneumonia, pneumothorax, pulmonary embolus, stable angina, unstable angina. I considered the following discharge prescriptions or medication management in the emergency department Medications were administered in the Emergency Department. See MAR. Care significantly affected by the following chronic conditions: Hypertension, Chronic Obstructive Pulmonary Disease, chronic pain. Refusal of service: The patient/guardian displays adequate decision making capability and despite a detailed discussion of alternatives, benefits, risks, and consequences refuses: to wait for reults of troponin testing. Special discussion: Based on the patient's history, exam, and Dx evaluation, there is no indication for emergent intervention or inpatient Tx. It is understood by the patient/guardian that if the Sx's persist or worsen they need to return immediately for re-evaluation. 10/20 20:17 Order name: EKG; Complete Time: 20:17 cp 10/20 20:17 Order name: EKG - Nurse/Tech; Complete Time: 20:27 cp EC:23 Rate is 86 beats/min. Rhythm is regular. UT interval is normal. QRS interval is normal. cp QT interval is normal. T waves are Inverted in leads I, II, aVL, V4, V5, V6. Interpreted by me. Reviewed by me. Administered Medications: 20:52 Drug: Diazepam PO 5 mg PO once Route: PO; br2 21:27 Follow up: Response: No adverse reaction; Anxiety decreased tb4 20:52 Drug: Ketorolac PO 10 mg PO once Route: PO; br2 21:27 Follow up: Response: No adverse reaction; Pain is decreased tb4 Disposition: 10/21 06:49 Co-signature as Attending Physician, Gene Medrano MD I reviewed the patient's care rn provided by the Advanced Practice Provider and agree with the diagnosis and treatment plan. Disposition Summary: 10/20/24 21:15 Discharge Ordered Notes: Location: Home cp Problem: new cp Symptoms: have improved cp Condition: Stable cp Diagnosis - Chest pain, unspecified cp Followup: cp - With: Private Physician - When: 2 - 3 days - Reason: Recheck today's complaints Discharge Instructions: - Discharge Summary Sheet cp - Nonspecific Chest Pain, Adult cp - Aspirin and Your Heart cp Forms: - Medication Reconciliation Form cp - Antibiotic Education cp - Prescription Opioid Use cp - Patient Portal Instructions cp - Leadership Thank You Letter cp Signatures: Dispatcher [employer] EDGene Bhagat MD MD rn Page, Corey, PA PA cp Jaziel Storm RN RN jb4 Destiney Moura RN RN br2 Tamela Bradshaw RN tb4 Corrections: (The following items were deleted from the chart) 10/20 21:13 20:45 This 49 yrs old Female presents to ER via EMS with complaints of Chest Pain. cp cp
[2024-10-20 21:34] VITALS: O2SAT 100
[2024-10-20 21:36] VITALS: BP 134/96; TEMP 98.1
== END 2024-10-20 21:29 | disposition home or self-care (01) ==
LOC: ER 20:05
DX: R07.9 Chest pain, unspecified (principal); I10 Essential (primary) hypertension; J44.9 Chronic obstructive pulmonary disease, unspecified; I25.2 Old myocardial infarction; F17.210 Nicotine dependence, cigarettes, uncomplicated; Z91.013 Allergy to seafood; Z88.8 Allergy status to other drugs, medicaments and biological substances; Z91.018 Allergy to other foods
CPT/HCPCS: 93005; 99284

== ENCOUNTER 2024-10-24 22:24 | Inpatient (IN) | payer OTHER ==
[2024-10-24] MEDS ORDERED: NA CHLORIDE 0.9% 1,000 ML ONE (22:40)
[2024-10-24 23:31] LABS: Absolute Lymphocytes (CBC) 1.9 K/uL (0.7-4.9); Hematocrit 35.0 % (36.0-45.0); Hemoglobin 12.5 g/dL (12.0-15.0); MCH 32.6 pg (27.0-35.0); MCHC 35.8 g/dL (32.0-36.0); MCV 91.1 fL (80-100); MPV 7.0 fL (7.6-11.3); Nucleated RBC Absolute Count 0.0 (0-0); Nucleated Red Blood Cells % 0.1 % (0-0); RBC Red Blood Cell Count 3.84 M/uL (3.86-4.86); White Blood Count 7.40 thou/uL (4.3-10.9)
[2024-10-24 23:36] LABS: PT Prothrombin Time 13.5 SECONDS (10-13.0); Protime INR 1.2
[2024-10-24 23:48] LABS: Anion Gap 9.5 mEq/L (5.0-15.0); BUN Blood Urea Nitrogen 11.0 mg/dL (7-18); Glucose Level 101.0 mg/dL (74-106); Magnesium 1.5 mg/dL (1.6-2.4); Potassium 3.5 mEq/L (3.5-5.1)
[2024-10-24 23:50] LABS: Troponin High Sensitivity 135.5 pg/mL (<58.9)
[2024-10-25] MEDS ORDERED: HEPARIN/D5W 25,000 UNIT/500 ML BAG IV ONE (01:01)
[2024-10-25] MEDS ORDERED: HEPARIN 5000 UNIT/ML 1 ML VIAL ONE (01:01)
--- NOTE | 2024-10-25 01:16 | ER ---
Nurse's Notes [facility] Name: Geetha Khan Age: 49 yrs Sex: Female : 1975 Arrival Date: 10/24/2024 Time: 22:24 Bed 7 Private MD: Diagnosis: Subsequent non-ST elevation (NSTEMI) myocardial infarction;Syncope;Left knee abrasion Presentation: 10/24 22:34 Chief complaint: Patient states: states passed out while sitting in wheelchair and fell vc1 out of chair hitting her left shoulder and left side of her head. Coronavirus screen: At this time, the client does not indicate any symptoms associated with coronavirus-19. Ebola Screen: No symptoms or risks identified at this time. Initial Sepsis Screen: Does the patient meet any 2 criteria? No. Patient's initial sepsis screen is negative. Does the patient have a suspected source of infection? No. Patient's initial sepsis screen is negative. Risk Assessment: Do you want to hurt yourself or someone else? Patient reports no desire to harm self or others. Onset of symptoms was October 24, 2024. 22:34 Method Of Arrival: EMS: [facility] vc1 22:34 Acuity: CORRINA 2 vc1 Triage Assessment: 22:57 General: Appears in no apparent distress. uncomfortable, slender, well groomed, vc1 Behavior is calm, cooperative, appropriate for age. Pain: Complains of pain in left mosque. EENT: Neuro: Level of Consciousness is awake, alert, obeys commands, Oriented to person, place, time, situation, Appropriate for age. Cardiovascular: Patient's skin is warm and dry. Respiratory: Airway is patent Respiratory effort is even, unlabored, Respiratory pattern is regular, symmetrical. 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 - Infectious Disease History:: Denies. - Social history:: Smoking status: Patient reports the use of cigarette tobacco products, 5 Cigarettes a day. Screenin:00 [facility] ED Fall Risk Assessment (Adult) History of falling in the last 3 months, cp4 including since admission Yes- single mechanical fall (1 pt) Confusion or Disorientation No (0 pts) Intoxicated or Sedated No (0 pts) Impaired Gait Yes (1 pt) Mobility Assist Device Used Yes (1 pt) Altered Elimination No (0 pt) Score/Fall Risk Level 3 or more points = High Risk Oriented to surroundings, Maintained a safe environment, Assessed \T\ reinforced patient's understanding of fall precautions, Hourly rounding (assess needs \T\ fall precautionary measures) done, Implemented a Fall Risk Plan of Care. Abuse screen: Denies threats or abuse. Denies injuries from another. Nutritional screening: No deficits noted. Tuberculosis screening: No symptoms or risk factors identified. Never had TB. Assessment: 23:00 General: Appears in no apparent distress. uncomfortable, Behavior is calm, cooperative, cp4 appropriate for age. 23:00 Pain: Complains of pain in face and left mosque and left arm and posterior aspect of cp4 left shoulder and anterior aspect of left shoulder Pain does not radiate. Pain currently is 10 out of 10 on a pain scale. Pain began 1 hour ago. Neuro: Level of Consciousness is awake, alert, obeys commands, Oriented to person, place, time, situation. Cardiovascular: Patient's skin is warm and dry. Rhythm is sinus rhythm. Respiratory: Airway is patent Respiratory effort is even, unlabored. GI: No signs and/or symptoms were reported involving the gastrointestinal system. : No signs and/or symptoms were reported regarding the genitourinary system. EENT: No signs and/or symptoms were reported regarding the EENT system. Derm: No signs and/or symptoms reported regarding the dermatologic system. Musculoskeletal: No signs and/or symptoms reported regarding the musculoskeletal system. Vital Signs: 22:34 BP 87 / 58; Pulse 80; Resp 12; Temp 98; Pulse Ox 99% ; Pain 10/10; vc1 23:54 BP 96 / 63; Pulse 76; Resp 18; Temp 97; cp4 08 00:18 Weight 56.25 kg; cp4 00:39 BP 108 / 70; Pulse 79; Resp 18; Pulse Ox 96% ; cp4 02:00 BP 103 / 58; Pulse 64; Resp 18; Pulse Ox 96% ; cp4 03:00 BP 103 / 55; Pulse 60; Resp 18; Pulse Ox 96% ; cp4 08 22:34 Pain Scale: Adult vc1 ED Course: 10/24 22:27 Patient arrived in ED. ms3 22:27 Kishor Hoyos DO is Attending Physician. ms3 22:31 Yasmeen Vasquez is Primary Nurse. cp4 22:54 Triage completed. vc1 22:57 Arm band placed on right wrist. vc1 23:00 Bed in low position. Call light in reach. Side rails up X2. Provided Education on: fall.cp4 23:00 No provider procedures requiring assistance completed. cp4 23:06 XRAY Chest (1 view) In Process Unspecified. EDMS 23:25 Inserted saline lock: 20 gauge in left antecubital area, using aseptic technique. Blood kmf collected. Flushed with 10 mL NS. 23:40 CT Head Brain wo Cont In Process Unspecified. EDMS 23:55 Knee Left 3 View XRAY In Process Unspecified. EDMS 08 00:56 Inserted saline lock: 22 gauge in right hand, using aseptic technique. td1 01:15 Jessica Barron MD is Hospitalizing Provider. ms3 02:37 Inserted saline lock: 18 gauge in left ,using aseptic technique. FOOT. kmf 03:29 Patient admitted, IV remains in place. cp4 Administered Medications: 10/24 22:54 Drug: NS 0.9% IV 1000 ml IV at 1 bolus Per protocol; to be given as a bolus over 60 cp4 minutes Route: IV; Rate: 1 bolus; Site: right hand; 10/25 03:26 Follow up: IV Status: Completed infusion cp4 01:24 Drug: Heparin (NV-Bolus No thrombolytic) - HEParin IVP 60 units/kg IVP once; AFTER cp4 NEGATIVE CT HEAD Max 5000 units {Co-Signature: tb4 (Tamela Bradshaw RN).} Route: IVP; Site: Other; 03:26 Follow up: Response: No adverse reaction cp4 01:27 Drug: Heparin (NV Drip) 12 units/kg/hr - ([place] [address] units, D5W IV 500 ml) IV at cp4 calculated rate Per protocol; AFTER NEGATIVE CT HEAD ONLY Max initial rate 1000 units/hr {Co-Signature: tb4 (Tamela Bradshaw RN).} Route: IV; Rate: calculated rate; Site: Other; 03:27 Follow up: IV Status: Infusion continued upon admission cp4 Medication: 10/24 23:00 VIS not applicable for this client. cp4 Outcome: 10/25 01:16 Decision to Hospitalize by Provider. ms3 03:29 Admitted to ER Hold. Please see [facility] for further documentation. cp4 03:29 Condition: stable 03:29 Instructed on the need for admit, 14:02 Patient left the ED. jl7 Signatures: Dispatcher [employer] EDMS Kailey Ching RN RN jl7 Kishor Hoyos DO DO ms3 Syeda Bruce RN RN vc1 Yasmeen Vasquez cp4 [facility] Gil Rodrigues td1 Tamela Bradshaw RN tb4
--- NOTE | 2024-10-25 01:16 | EDPHYS ---
Physician Documentation [facility] Name: Geetha Khan Age: 49 yrs Sex: Female : 1975 Arrival Date: 10/24/2024 Time: 22:24 Bed 7 Private MD: ED Physician Kishor Hoyos HPI: 10/24 22:37 This 49 yrs old Female presents to ER via Unassigned with unknown complaint. ms3 22:37 49-year-old female with past medical history of hypertension, MA, seizures, CVA, COPD ms3 presents to the emergency department via [facility] status post syncopal episode. EMS states patient took 2 of her isosorbide approximately 45 minutes apart. Patient's initial blood pressure was 72/40. Patient endorses fall, headache. Patient states she took a second isosorbide tonight as she did not feel that her initial pill worked. Patient denies pain. Patient denies any alleviating or inciting factors.. 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 - Infectious Disease History:: Denies. - Social history:: Smoking status: Patient reports the use of cigarette tobacco products, 5 Cigarettes a day. ROS: 22:37 Constitutional: Negative for fever, and chills. Cardiovascular: Negative for chest ms3 pain, and palpitations. Respiratory: Negative for shortness of breath, cough, wheezing, and pleuritic chest pain, Abdomen/GI: Negative for abdominal pain, nausea, vomiting, diarrhea, and constipation, 22:37 Skin: Positive for abrasion(s), ecchymosis, of the right knee, 22:37 Neuro: Positive for syncope, Exam: 22:37 Constitutional: This is a well developed, well nourished patient who is awake, alert, ms3 and in no acute distress. Cardiovascular: Regular rate and rhythm with a normal S1 and S2. No gallops, murmurs, or rubs. Normal PMI, no JVD. No pulse deficits. Respiratory: Lungs have equal breath sounds bilaterally, clear to auscultation and percussion. No rales, rhonchi or wheezes noted. No increased work of breathing, no retractions or nasal flaring. Abdomen/GI: Soft, non-tender, with normal bowel sounds. No distension or tympany. No guarding or rebound. No evidence of tenderness throughout. 22:37 Skin: injury, abrasion(s), small abrasion noted, of the Left knee, contusion(s), that are superficial, of the Left knee, 22:51 ECG was reviewed by the Attending Physician. ms3 Vital Signs: 22:34 BP 87 / 58; Pulse 80; Resp 12; Temp 98; Pulse Ox 99% ; Pain 10/10; vc1 23:54 BP 96 / 63; Pulse 76; Resp 18; Temp 97; cp4 10/25 00:18 Weight 56.25 kg; cp4 00:39 BP 108 / 70; Pulse 79; Resp 18; Pulse Ox 96% ; cp4 02:00 BP 103 / 58; Pulse 64; Resp 18; Pulse Ox 96% ; cp4 03:00 BP 103 / 55; Pulse 60; Resp 18; Pulse Ox 96% ; cp4 10/24 22:34 Pain Scale: Adult vc1 MDM: 10/24 22:27 Medical Screening Exam initiated ms3 22:42 Differential Diagnosis: cardiac arrhythmia, idiopathic syncope, Unintentional ms3 medication overdose. 23:55 ED course: Discussed case with Dr Garay. Would like patient started on Heparin ggt. ms3 Will begin ggt after CT head results. 10/25 01:16 Data reviewed: vital signs, nurses notes, lab test result(s), EKG, radiologic studies, ms3 and as a result, I will admit patient. Consideration of Admission/Observation Patient was admitted/placed on observation. Management of patient was discussed with the following: Hospitalist: Dr Barron. I considered the following discharge prescriptions or medication management in the emergency department Medications were administered in the Emergency Department. See MAR. Independent interpretation of the following test(s) in the Emergency Department EKG: See my EKG interpretation above X-Ray: My interpretation is Left knee x-ray images reviewed by me do not reveal fracture. CT Head without contrast images reviewed by me did not reveal ICH. Counseling: I had a detailed discussion with the patient and/or guardian regarding the historical points, exam findings, and any diagnostic results supporting the discharge/admit diagnosis, lab results, radiology results, the need for further work-up and treatment in the hospital. ED course: Discussed case with hospitalist and accepts admission. Case was discussed with Dr. Garay who recommended heparin. Discussed necessity for admission with the patient and she agrees with plan. All questions were answered.. 10/24 22:28 Order name: Basic Metabolic Panel; Complete Time: 23:51 ms3 10/24 22:28 Order name: CBC with Diff; Complete Time: 23:51 ms3 10/24 22:28 Order name: Magnesium; Complete Time: 23:51 ms3 10/24 22:28 Order name: PT-INR; Complete Time: 23:51 ms3 10/24 22:28 Order name: Troponin HS; Complete Time: 23:51 ms3 10/25 01:03 Order name: Ptt, Activated; Complete Time: 02:19 cp4 10/25 01:47 Order name: CBC with Automated Diff EDMS 10/25 01:47 Order name: CBC with Automated Diff EDMS 10/25 01:47 Order name: Comprehensive Metabolic Panel EDMS 10/25 01:47 Order name: Comprehensive Metabolic Panel EDMS 10/25 01:47 Order name: Troponin High Sensitivity EDMS 10/25 01:47 Order name: Troponin High Sensitivity EDMS 10/25 01:48 Order name: Troponin High Sensitivity EDMS 10/25 01:48 Order name: Troponin High Sensitivity EDMS 10/25 01:48 Order name: Troponin High Sensitivity EDMS 10/25 03:59 Order name: Ptt, Activated cp4 10/25 04:38 Order name: PTT, Activated Partial Thromb; Complete Time: 04:58 EDMS 10/25 09:05 Order name: PTT, Activated Partial Thromb EDMS 10/24 22:28 Order name: XRAY Chest (1 view) ms3 10/24 22:28 Order name: CT Head Brain wo Cont ms3 10/24 22:30 Order name: Knee Left 3 View XRAY ms3 10/25 01:47 Order name: CONS Physician Consult EDMS 10/24 22:28 Order name: Cardiac monitoring; Complete Time: 22:47 ms3 10/24 22:28 Order name: EKG - Nurse/Tech; Complete Time: 22:47 ms3 10/24 22:28 Order name: IV Saline Lock; Complete Time: 22:54 ms3 08 22:28 Order name: Labs collected and sent; Complete Time: 22:54 ms3 08 22:28 Order name: O2 Per Protocol; Complete Time: 22:48 ms3 08 22:28 Order name: O2 Sat Monitoring; Complete Time: 22:48 ms3 EC/09 22:51 Rate is 79 beats/min. Rhythm is regular. QRS [place] is Normal. MT interval is normal. QRS ms3 interval is normal. Clinical impression: NSR w/ Non-specific ST/T Changes. No change from previous ECG on October 01, 2024. Interpreted by me. Reviewed by me. Administered Medications: 22:54 Drug: NS 0.9% IV 1000 ml IV at 1 bolus Per protocol; to be given as a bolus over 60 cp4 minutes Route: IV; Rate: 1 bolus; Site: right hand; 10/25 03:26 Follow up: IV Status: Completed infusion cp4 01:24 Drug: Heparin (MA-Bolus No thrombolytic) - HEParin IVP 60 units/kg IVP once; AFTER cp4 NEGATIVE CT HEAD Max 5000 units {Co-Signature: tb4 (Tamela Bradshaw RN).} Route: IVP; Site: Other; 03:26 Follow up: Response: No adverse reaction cp4 01:27 Drug: Heparin (MA Drip) 12 units/kg/hr - ([place] [address] units, D5W IV 500 ml) IV at cp4 calculated rate Per protocol; AFTER NEGATIVE CT HEAD ONLY Max initial rate 1000 units/hr {Co-Signature: tb4 (Tamela Bradshaw RN).} Route: IV; Rate: calculated rate; Site: Other; 03:27 Follow up: IV Status: Infusion continued upon admission cp4 Disposition Summary: 10/25/24 01:16 Hospitalization Ordered Notes: Hospitalization Status: Inpatient Admission ms3 Provider: Jessica Barron ms3 Condition: Fair ms3 Problem: new ms3 Symptoms: are unchanged ms3 Bed/Room Type: Standard ms3 Location: [facility] ER HOLD(10/25/24 06:09) vc1 Room Assignment: ERHOLD-(10/25/24 06:09) vc1 Diagnosis - Subsequent non-ST elevation (NSTEMI) myocardial infarction ms3 - Syncope ms3 - Left knee abrasion ms3 Forms: - Medication Reconciliation Form ms3 - SBAR form ms3 - Leadership Thank You Letter ms3 Critical care time excluding procedures: 01:16 Critical care time: Bedside Care: 35 minutes, Consultation: 10 minutes. Total time: 45 ms3 minutes Signatures: Dispatcher [employer] EDMS Kishor Hoyos, DO ms3 Syeda Bruce, RN RN vc1 Yasmeen Vasquez cp4 Tamela Bradshaw RN tb4 Corrections: (The following items were deleted from the chart) 10/24 22:28 22:28 BASIC METABOLIC PANEL+C.LAB.BRZ ordered. EDMS EDMS 22:28 22:28 CBC+H.LAB.BRZ ordered. EDMS EDMS 22:28 22:28 MAGNESIUM+C.LAB.BRZ ordered. EDMS EDMS 22:28 22:28 PROTIME (+INR)+COAG.LAB.BRZ ordered. EDMS EDMS 22:28 22:28 Troponin High Sensitivity+C.LAB.BRZ ordered. EDMS EDMS 22:28 22:28 Chest Single View+RAD.RAD.BRZ ordered. EDMS EDMS 22:28 22:28 Head Brain Wo Cont+CT.RAD.BRZ ordered. EDMS EDMS 10/25 01:18 01:16 ED course: . ms3 ms3 06:09 01:16 Telemetry/MedSurg (Inpatient) ms3 vc1 06:09 01:16 ms3 vc1
--- NOTE | 2024-10-25 01:36 | RAD REPORT ---
EXAM: XR Chest, 1 View CLINICAL HISTORY: The patient is 49 years old and is Female; syncope, fall, headache TECHNIQUE: Frontal view of the chest. COMPARISON: No relevant prior studies available. FINDINGS: Lungs: Unremarkable. No consolidation. Pleural space: Unremarkable. No pneumothorax. Heart: Unremarkable. Mediastinum: Unremarkable. Normal mediastinal contour. Bones/joints: No acute findings. * A single impression for all exams can be found at the end of this report IMPRESSION: XR Chest, 1 View: No acute findings in the chest. Electronically signed by: Scott Reid MD 10/25/2024 12:47 AM CDT RP 8 Due to temporary technical issues with the PACS/Qubit reporting system, reports are being edwin d by the in-house radiologist without review as a courtesy to ensure prompt reporting the interpreting radiologist is fully responsible for the content of the report. Transcribed Date/Time: 10/25/2024 1:35 AM
[2024-10-25] MEDS ORDERED: ONDANSETRON 4 MG/2 ML VIAL IV PRN (01:40)
[2024-10-25] MEDS ORDERED: ALBUTEROL 2.5 MG/3 ML NEB SOL NEB PRN (01:40)
[2024-10-25] MEDS ORDERED: MORPHINE 2 MG/ML SYR IV PRN (01:40)
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
[2024-10-25] MEDS: CLOPIDOGREL 75 MG TABLET PO SCH (01:43)
[2024-10-25] MEDS: ASPIRIN EC 81 MG TAB PO SCH (01:43)
[2024-10-25] MEDS: NITROGLYCERIN 0.2 MG/HR (5 MG) PATCH TD SCH (01:43)
--- NOTE | 2024-10-25 01:44 | RAD REPORT ---
EXAM: CT Head Without Intravenous Contrast CLINICAL HISTORY: The patient is 49 years old and is Female; syncope, fall, headache TECHNIQUE: Axial computed tomography images of the head/brain without intravenous contrast. Sagit shaina and coronal reformatted images were created and reviewed. This CT exam was performed using one or more of the following dose reduction techniques: automated exposure control, adjustment of t he mA and/or kV according to patient size, and/or use of iterative reconstruction technique. COMPARISON: No relevant prior studies available. FINDINGS: Brain: Mild nonspecific white matter changes likely related to chronic microvascular ischemic dis ease. Old infarct involving the right basal ganglia and external capsule. No hemorrhage. Ventricles: Unremarkable. No ventriculomegaly. Bones/joints: Unremarkable. No acute fracture. Soft tissues: Unremarkable. Sinuses: Unremarkable as visualized. Mastoid air cells: Unremarkable as visualized. No mastoid effusion. * A single impression for all exams can be found at the end of this report EXAM: XR Chest, 1 View CLINICAL HISTORY: The patient is 49 years old and is Female; syncope, fall, headache TECHNIQUE: Frontal view of the chest. COMPARISON: No relevant prior studies available. FINDINGS: Lungs: Unremarkable. No consolidation. Pleural space: Unremarkable. No pneumothorax. Heart: Unremarkable. Mediastinum: Unremarkable. Normal mediastinal contour. Bones/joints: No acute findings. * A single impression for all exams can be found at the end of this report IMPRESSION: CT Head Without Intravenous Contrast: No acute intracranial abnormality. XR Chest, 1 View: No acute findings in the chest. Electronically signed by: Scott Reid MD 10/25/2024 12:47 AM CDT RP 8 Due to temporary technical issues with the PACS/[employer] reporting system, reports are being edwin d by the in-house radiologist without review as a courtesy to ensure prompt reporting the interpreting radiologist is fully responsible for the content of the report. Transcribed Date/Time: 10/25/2024 1:43 AM
[2024-10-25] MEDS: NA CHLORIDE 0.9% 1,000 ML IV SCH (02:00)
--- NOTE | 2024-10-25 02:27 | RAD REPORT ---
INDICATION: fall COMPARISON: No existing relevant imaging studies are available FINDINGS: Three views of the left knee were obtained. BONES / JOINTS: No acute fracture or dislocation. Mild tricompartmental osteoarthritis. Small superio r patellar enthesophyte. Decreased osseous mineralization. SOFT TISSUES: No significant abnormality. ADDITIONAL FINDINGS: None. IMPRESSION: No acute findings. Electronically signed by: Kelvin Anderson DO 10/25/2024 02:18 AM CDT RP NR Due to temporary technical issues with the PACS/Joust reporting system, reports are being edwin d by the in-house radiologist without review as a courtesy to ensure prompt reporting the interpreting radiologist is fully responsible for the content of the report. Transcribed Date/Time: 10/25/2024 2:26 AM
[2024-10-25] MEDS ORDERED: CLOPIDOGREL 75 MG TABLET ONE ×2 (02:42→08:00)
[2024-10-25 03:23] VITALS: BMI 21.2
[2024-10-25] MEDS: HEPARIN/D5W 25,000 UNIT/500 ML BAG IV SCH (03:30)
[2024-10-25] MEDS ORDERED: FAMOTIDINE 20 MG TAB ONE (08:00)
[2024-10-25] MEDS ORDERED: ASPIRIN EC 81 MG TAB PO ONE (08:01)
[2024-10-25] MEDS ORDERED: NITROGLYCERIN 1 GM PKT TD ONE (08:01)
[2024-10-25] MEDS: FAMOTIDINE 20 MG TAB PO SCH (09:00)
--- NOTE | 2024-10-25 13:07 | P.DS ---
Admission Date: 10/25/24 Discharge Date: 10/25/24 Reason for Admission: Chest pain and syncope Brief History of Present Illness: 49-year-old female with past medical history of HTN, CVA, COPD, nonobstructive coronary artery disease, status post negative stress test several months ago, negative cardiac cath 1.5 years ago, seizure history, chronic tobacco use who presented because of chest pain since yesterday. Patient states chest pain is intermittent started yesterday and resolved. Chest pain recurred again today while she was visiting and aunt was giving her one of her medicine. she said the chest pain resolved for about an hour. She is unsure of the name of the pill that she was given by the aunt however the pill brought by the spouse was labeled 502 which on lookup suggest tizanidine. On getting home the chest pain recurred again and she has taking her home dose of isosorbide. She started to feel dizzy and weak. She was brought into the emergency room in the wheelchair or getting on the wheelchair she passed out for a few minutes. And then regained consciousness. She says she has fallen and hit her head at the time. On arrival in the ED blood pressure was 72/40 nontachycardic, laboratory workup shows troponin elevation of 135, EKG shows normal sinus rhythm with no ST segment changes, chest x-ray was clear, head CTpending. Patient is a poor historian who repeatedly denied any prior cardiac history although record shows she has had multiple admission for non-STEMI in the past. She admits to tobacco use about 1 pack/day. Cardiology was discussed with and recommended heparin drip. Patient was seen by cardiology who recommended to stop heparin drip. 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 Stable for discharge Hospital Course: Physical Examination - Physical Exam General: In no apparent distress, Oriented x3, Cooperative HEENT: Atraumatic, Normocephalic, PERRLA Neck: 2+ carotid pulse no bruit, JVD not distended Respiratory: Clear to auscultation bilaterally, Normal air movement Cardiovascular: Normal pulses, Regular rate/rhythm, Normal S1 S2 Capillary refill: <2 Seconds Gastrointestinal: Normal bowel sounds, Soft and benign, Non-distended, W/out succussion splash, No ascites, No tenderness Musculoskeletal: No clubbing, No swelling Integumentary: No rashes, No breakdown, No significant lesion Neurological: Normal speech, Normal strength at 5/5 x4 extr, Sensation intact - Studies Laboratory Data (last 24 hrs) 10/24/24 10/24/24 10/24/24 23:18 23:18 23:18 WBC 7.40 Hgb 12.5 Hct 35.0 L Plt Count 296 PT 13.5 H INR 1.20 APTT 33.0 Sodium Potassium BUN Creatinine Glucose Magnesium 10/24/24 23:18 WBC Hgb Hct Plt Count PT INR APTT Sodium 140 Potassium 3.5 BUN 11 Creatinine 1.52 H Glucose 101 Magnesium 1.5 L Assessment and Plan - Plan Impression Non-STEMI Hypotensiondue to medication and muscle relaxant use Hypomagnesemia Chronic tobacco use History of hypertension History of seizures History of COPDstable History of CVAstable History of CKD stage IIIcreatinine at baseline of 1.3-1.5 Plan Will admit patient to ICU Heparin drip discontinued Serial set of cardiac enzymes Continue aspirin 5 Start low-dose metoprolol if blood pressure improved Gentle IV fluid Tobacco cessation advised Follow-up cardiology as outpatient Full code - Advance Directives Does patient have a Living Will: No Does patient have a Durable POA for Healthcare: No Vital Signs/Physical Exam: Temp Pulse Resp BP Pulse Ox 98 F 79 16 122/86 96 10/25/24 12:00 10/25/24 12:00 10/25/24 12:00 10/25/24 12:00 10/25/24 12:00 Laboratory Data at Discharge: WBC 7.40 thou/uL (4.3-10.9) 10/24/24 23:18 Hgb 12.5 g/dL (12.0-15.0) 10/24/24 23:18 Hct 35.0 % (36.0-45.0) L 10/24/24 23:18 Plt Count 296 thou/uL (152-406) 10/24/24 23:18 PT 13.5 SECONDS (10-13.0) H 10/24/24 23:18 INR 1.20 10/24/24 23:18 APTT 57.5 SECONDS (27.2-37.4) H 10/25/24 08:30 Sodium 140 mEq/L (136-145) 10/24/24 23:18 Potassium 3.5 mEq/L (3.5-5.1) 10/24/24 23:18 BUN 11 mg/dL (7-18) 10/24/24 23:18 Creatinine 1.52 mg/dL (0.55-1.02) H 10/24/24 23:18 Glucose 101 mg/dL (74-106) 10/24/24 23:18 Magnesium 1.5 mg/dL (1.6-2.4) L 10/24/24 23:18 Home Medications: Carbamazepine [Tegretol] 200 mg PO BID 12/28/23 Diazepam [Valium] 5 mg DAILY 12/28/23 Metoprolol Tartrate [Lopressor*] 12.5 mg BID 12/28/23 Pantoprazole Sodium 40 mg DAILY 12/28/23 hydrOXYzine HCL [Atarax*] 25 mg Q6HR 12/28/23 traMADol HCL [Ultram*] 50 mg Q8HR 12/28/23 Ensure Enlive 237 ml PO BID #30 can 01/03/24 Mometasone/Formoterol [Dulera 200 Mcg/5 Mcg Inhaler] 2 puff IH BID #1 inhaler 01/03/24 Mupirocin Calcium [Bactroban Nasal*] 1 appl THOMAS BID #1 tube 01/03/24 Albuterol Neb [Proventil 0.083% Neb Soln] 2.5 mg NEB Q6HP PRN #60 amp 03/12/24 Atorvastatin Calcium [Lipitor] 40 mg PO BEDTIME tab 03/12/24 Hydrocodone 10/APAP 325 [[place] 10/325*] 1 tab PO Q6H PRN #30 tab 03/12/24 Ipratropium Neb [Atrovent*] 0.5 mg NEB [id number] PRN #60 amp 03/12/24 Nebulizer 1 each MC DAILY #1 ea 03/12/24 Nebulizer Accessories [Aeroneb Go] 1 each MC DAILY #1 ea 03/12/24 Aspirin [Aspirin EC 81 MG] 81 mg PO DAILY #30 tab 04/10/24 Cyanocobalamin/Cobamamide [Vitamin B-12 5,000 Mcg Tab Sl] 1 each SL DAILY #30 tab 04/10/24 Hydrocodone 5/APAP 325 [[place] 5/325] 1 tab PO Q6H PRN #20 tab 04/10/24 Magnesium Chloride [Slow-Mag*] 128 mg PO BID #60 tab 04/10/24 Isosorbide Dinitrate 30 mg PO DAILY #90 tab 04/15/24 Followup: [facility]LL[facility] [Primary Care Provider] -
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
[2024-10-25 14:08] VITALS: TEMP 97
[2024-10-25 14:10] VITALS: O2SAT 96
[2024-10-25 14:14] VITALS: BP 103/55
[2024-10-26] MEDS ORDERED: Magnesium Sulfate 2gm IVPB 2 G/50 ML BAG IV ONE (01:44)
== END 2024-10-25 13:50 | disposition home or self-care (01) | DRG 281 ==
LOC: ER 22:24 → ERHOLD 10-25 01:40
PROVIDERS: ADMIT Internal Medicine; ATTEND Family Medicine
DX: I21.4 Non-ST elevation (NSTEMI) myocardial infarction (principal); I13.0 Hypertensive heart and chronic kidney disease with heart failure and stage 1 through stage 4 chronic kidney disease, or unspecified chronic kidney disease; I50.32 Chronic diastolic (congestive) heart failure; I95.2 Hypotension due to drugs; N18.30 Chronic kidney disease, stage 3 unspecified; F41.9 Anxiety disorder, unspecified; E83.42 Hypomagnesemia; I25.2 Old myocardial infarction; S80.212A Abrasion, left knee, initial encounter; J44.9 Chronic obstructive pulmonary disease, unspecified; I25.10 Atherosclerotic heart disease of native coronary artery without angina pectoris; T48.205A Adverse effect of unspecified drugs acting on muscles, initial encounter; F17.210 Nicotine dependence, cigarettes, uncomplicated; Z88.6 Allergy status to analgesic agent; Z86.73 Personal history of transient ischemic attack (TIA), and cerebral infarction without residual deficits; Z91.013 Allergy to seafood; Z91.018 Allergy to other foods; Z79.899 Other long term (current) drug therapy
CPT/HCPCS: 36415; 70450; 71045; 80048; 83735; 84484; 85025; 85610; 85730; 93005; 96361; 96365; 96366; 99285; J1644; J7030

== ENCOUNTER 2024-10-26 13:48 | Emergency (ER) | payer OTHER ==
[2024-10-26] MEDS ORDERED: NA CHLORIDE 0.9% 1,000 ML ONE ×2 (15:33→16:41)
--- NOTE | 2024-10-26 15:34 | RAD REPORT ---
EXAM: Chest Single View HISTORY: 49 years Female CHEST PAIN COMPARISON: 08/24/24 FINDINGS: LUNGS/PLEURA: The lungs are clear. No pleural effusions or pneumothorax. No pulmonary edema. CARDIAC/MEDIASTINUM: The cardiac silhouette is within normal limits. UPPER ABDOMEN: No significant abnormality. BONES: No acute abnormality. LINES/TUBES/OTHER: N/A IMPRESSION: No evidence of acute cardiopulmonary disease.
[2024-10-26 16:17] LABS: ALT/SGPT 29.0 U/L (13-56); AST/SGOT 26.0 U/L (15-37); Albumin 3.7 g/dL (3.4-5.0); Albumin/Globulin Ratio 1.2 (1.1-1.8); Alkaline Phosphatase 248.0 U/L (45-117); Anion Gap 9.9 mEq/L (5.0-15.0); BUN Blood Urea Nitrogen 10.0 mg/dL (7-18); Bilirubin Indirect, Calculated 0.3 mg/dL (0.2-0.8); Globulin 3.1 g/dL (2.3-3.5); Glucose Level 134.0 mg/dL (74-106); Lipase 48.0 U/L (13-75); Magnesium 1.4 mg/dL (1.6-2.4); NT PRO-BNP 658.0 pg/mL (<125); Potassium 3.9 mEq/L (3.5-5.1)
[2024-10-26 16:19] LABS: Troponin High Sensitivity 78.8 pg/mL (<58.9)
[2024-10-26 16:23] LABS: Absolute Lymphocytes (CBC) 1.6 K/uL (0.7-4.9); Hematocrit 38.1 % (36.0-45.0); Hemoglobin 13.3 g/dL (12.0-15.0); MCH 32.4 pg (27.0-35.0); MCHC 35.0 g/dL (32.0-36.0); MCV 92.5 fL (80-100); MPV 7.1 fL (7.6-11.3); Nucleated RBC Absolute Count 0.0 (0-0); Nucleated Red Blood Cells % 0.2 % (0-0); RBC Red Blood Cell Count 4.12 M/uL (3.86-4.86); White Blood Count 7.50 thou/uL (4.3-10.9)
[2024-10-26] MEDS ORDERED: FLUCONAZOLE 100 MG TAB ONE (16:40)
[2024-10-26] MEDS ORDERED: MAGNESIUM SULFATE 1 gm IVPB 1 GM/100 ML BAG IV ONE (16:41)
--- NOTE | 2024-10-26 17:24 | EDPHYS ---
Physician Documentation [facility] Name: Geetha Khan Age: 49 yrs Sex: Female : 1975 Arrival Date: 10/26/2024 Time: 13:48 Bed 14 Private MD: ED Physician Michael Grimm HPI: 10/26 15:37 This 49 yrs old Female presents to ER via EMS with complaints of General Weakness. sb4 15:37 Patient reports feeling generally weak, almost had a syncopal episode this morning. sb4 Does report of 2 episodes of vomiting. Denies any more nausea. Was recently admitted for elevated troponin and low blood pressure readings secondary to taking too much of her isosorbide. States she did take her medication this morning but is not sure the name of it. PATIENT COMPANION: 14:39 LMP N/A - Irregular menses, Not dd2 Historical: - Allergies: 13:51 Aspirin; ll1 13:51 CRANBERRY; ll1 13:51 FISH PRODUCT DERIVATIVES; ll1 13:51 GRAPEFRUIT; ll1 13:51 mushroom; ll1 13:51 SHELLFISH; ll1 - PMHx: 13:51 Cerebrovascular accident; Chronic obstructive lung disease; chronic shoulder pain; ll1 Hypertensive disorder; Left sided paralysis post CVA; Myocardial infarction; Seizure; - Immunization history:: Adult Immunizations up to date. - Infectious Disease History:: Denies. - Social history:: Smoking status: Patient reports the use of cigarette tobacco products, denies chronic smoking, but will smoke occasionally. ROS: 15:37 Constitutional: Negative for fever, chills, and weight loss, sb4 15:37 Abdomen/GI: Positive for nausea and vomiting, 15:37 Neuro: Positive for near syncope, weakness, 15:37 All other systems are negative, Exam: 15:37 Head/Face: Normocephalic, atraumatic. Eyes: Extra-ocular motions intact. Periorbital sb4 areas with no swelling, redness, or edema. ENT: Mucous membranes moist. Cardiovascular: Regular rate and rhythm with a normal S1 and S2. Respiratory: No increased work of breathing, no retractions or nasal flaring. Skin: Warm, dry with normal turgor. Normal color with no rashes, no lesions, and no evidence of cellulitis. 15:37 Constitutional: The patient appears in no acute distress, alert, awake, Vital Signs: 14:39 BP 84 / 60; Pulse 82; Resp 16; Temp 98.4; Pulse Ox 99% ; Weight 60.78 kg; dd2 15:50 BP 103 / 76; Pulse 70; Resp 16; Pulse Ox 99% ; iw 16:20 BP 101 / 74; Pulse 79; Resp 16; Pulse Ox 99% on R/A; iw MDM: 14:07 Medical Screening Exam initiated sb4 17:27 Data reviewed: vital signs, nurses notes, EMS record, lab test result(s), EKG, sb4 radiologic studies, and as a result, I will discharge patient. Care significantly affected by the following chronic conditions: Hypertension, Chronic Obstructive Pulmonary Disease. Counseling: I had a detailed discussion with the patient and/or guardian regarding the historical points, exam findings, and any diagnostic results supporting the discharge/admit diagnosis, lab results, radiology results, the need for outpatient follow up, for definitive care, to return to the emergency department if symptoms worsen or persist or if there are any questions or concerns that arise at home. ED course: Patient states he is feeling better and is requesting to go home. Her blood pressure has improved. Her labs are unremarkable, troponin has improved since the other day. She denies any chest pain. Advised patient to check her blood pressure before she takes her medication. She understands and is in agreement with the plan. 10/26 14:47 Order name: Basic Metabolic Panel; Complete Time: 16:21 [facility] 10/26 14:47 Order name: CBC with Diff; Complete Time: 16:43 [facility] 10/26 14:47 Order name: LFT's; Complete Time: 16:21 4 10/26 14:47 Order name: Magnesium; Complete Time: 16:21 4 10/26 14:47 Order name: NT PRO-BNP; Complete Time: 16:21 4 10/26 14:47 Order name: Troponin HS; Complete Time: 16:21 4 10/26 14:47 Order name: Lipase; Complete Time: 16:21 4 10/26 16:40 Order name: Troponin High Sensitivity; Complete Time: 17:20 4 10/26 14:47 Order name: XRAY Chest (1 view); Complete Time: 15:35 4 10/26 14:47 Order name: EKG; Complete Time: 14:48 sb4 10/26 14:47 Order name: Cardiac monitoring; Complete Time: 17:01 sb4 10/26 14:47 Order name: EKG - Nurse/Tech; Complete Time: 16:21 sb4 10/26 14:47 Order name: IV Saline Lock; Complete Time: 15:49 sb4 10/26 14:47 Order name: Labs collected and sent; Complete Time: 15:49 sb4 10/26 14:47 Order name: O2 Per Protocol; Complete Time: 15:49 sb4 10/26 14:47 Order name: O2 Sat Monitoring; Complete Time: 15:49 sb4 EC:40 Rate is 81 beats/min. Rhythm is regular, Normal Sinus Rhythm. AK interval is normal at sb4 180 msec. QRS interval is normal at 90 msec. QT interval is prolonged at 426 msec. No Q waves. T waves are Normal. No ST changes noted. Clinical impression: LVH and No evidence of ischemia. Interpreted by me. Reviewed by me. Administered Medications: 15:49 Drug: NS 0.9% IV 1000 ml IV at 1000 ml once; to be given as a bolus over 60 minutes iw Route: IV; Rate: 1000 ml; Site: right hand; 16:30 Drug: NS 0.9% IV 1000 ml IV at 1000 ml once; to be given as a bolus over 60 minutes rg5 Route: IV; Rate: 1000 ml; Site: right hand; 16:49 Drug: Magnesium Sulfate IVPB 1 grams IVPB once over 1 hrs Route: IVPB; Infused Over: 1 iw hrs; Site: right hand; Disposition Summary: 10/26/24 17:23 Discharge Ordered Notes: Location: Home sb4 Problem: new sb4 Symptoms: have improved sb4 Condition: Stable sb4 Diagnosis - Syncope Near sb4 Followup: sb4 - With: Emergency Department - When: As needed - Reason: Trouble breathing, Worsening of condition Discharge Instructions: - Discharge Summary Sheet sb4 - Near-Syncope sb4 - How to Take Your Blood Pressure, [id number] sb4 Forms: - Patient Portal Instructions sb4 - Leadership Thank You Letter sb4 Addendum: 10/29/2024 14:36 Co-signature as Attending Physician, Michael Grimm MD I agree with the assessment and c call plan of care. Signatures: Dispatcher [employer] Michael Meyer MD MD cha Williams, Irene, RN RN iw Ruth East, RN RN ll1 Kalli Bradshaw PA-C PA-C sb4 Hakan Crowley, RN RN rg5 MAGGIE GIBSON RN RN dd2
--- NOTE | 2024-10-26 17:24 | ER ---
Nurse's Notes [facility] Name: Geetha Khan Age: 49 yrs Sex: Female : 1975 Arrival Date: 10/26/2024 Time: 13:48 Bed 14 Private MD: Diagnosis: Syncope Near Presentation: 10/26 13:52 Chief complaint: EMS states: N/V x 1 today. BP 90's systolic. ll1 13:52 Method Of Arrival: EMS: [facility] ll1 14:39 Coronavirus screen: At this time, the client does not indicate any symptoms associated dd2 with coronavirus-19. Ebola Screen: No symptoms or risks identified at this time. Initial Sepsis Screen: Does the patient meet any 2 criteria? HR > 90 bpm. No. Patient's initial sepsis screen is negative. Does the patient have a suspected source of infection? No. Patient's initial sepsis screen is negative. Risk Assessment: Do you want to hurt yourself or someone else? Patient reports no desire to harm self or others. Onset of symptoms was October 26, 2024. 14:39 Acuity: CORRINA 3 dd2 Triage Assessment: 14:39 General: Appears in no apparent distress. Behavior is calm, cooperative, appropriate dd2 for age. 14:39 Pain: Denies pain. dd2 14:39 GI: Reports nausea, vomiting. 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 - Infectious Disease History:: Denies. - Social history:: Smoking status: Patient reports the use of cigarette tobacco products, denies chronic smoking, but will smoke occasionally. Screenin:42 [facility] ED Fall Risk Assessment (Adult) History of falling in the last 3 months, iw including since admission Yes- single mechanical fall (1 pt) Confusion or Disorientation No (0 pts) Intoxicated or Sedated No (0 pts) Impaired Gait Yes (1 pt) Mobility Assist Device Used Yes (1 pt) Altered Elimination No (0 pt) Score/Fall Risk Level 3 or more points = High Risk Oriented to surroundings, Maintained a safe environment. Abuse screen: Denies threats or abuse. Denies injuries from another. Nutritional screening: No deficits noted. Tuberculosis screening: No symptoms or risk factors identified. Assessment: 16:21 Reassessment: Patient appears in no apparent distress at this time. Patient and/or iw family updated on plan of care and expected duration. Pain level reassessed. pt wants to go home. 17:35 Reassessment: Patient appears in no apparent distress at this time. Patient and/or iw family updated on plan of care and expected duration. Pain level reassessed. Vital Signs: 14:39 BP 84 / 60; Pulse 82; Resp 16; Temp 98.4; Pulse Ox 99% ; Weight 60.78 kg; dd2 15:50 BP 103 / 76; Pulse 70; Resp 16; Pulse Ox 99% ; iw 16:20 BP 101 / 74; Pulse 79; Resp 16; Pulse Ox 99% on R/A; iw ED Course: 13:49 Patient arrived in ED. im 13:52 Arm band placed on. ll1 14:05 Kalli Bradshaw PA-C is PHCP. sb4 14:05 Michael Grimm MD is Attending Physician. sb4 14:45 Triage completed. dd2 14:47 Hakan Crowley, YANETH is Primary Nurse. rg5 15:29 XRAY Chest (1 view) In Process Unspecified. EDMS 15:30 Initial lab(s) drawn, by me, sent to lab. Inserted saline lock: 24 gauge in right hand, iw using aseptic technique. Blood collected. Flushed with 10 mL NS. 17:42 Patient has correct armband on for positive identification. iw Administered Medications: 15:49 Drug: NS 0.9% IV 1000 ml IV at 1000 ml once; to be given as a bolus over 60 minutes iw Route: IV; Rate: 1000 ml; Site: right hand; 16:30 Drug: NS 0.9% IV 1000 ml IV at 1000 ml once; to be given as a bolus over 60 minutes rg5 Route: IV; Rate: 1000 ml; Site: right hand; 16:49 Drug: Magnesium Sulfate IVPB 1 grams IVPB once over 1 hrs Route: IVPB; Infused Over: 1 iw hrs; Site: right hand; Outcome: 17:23 Discharge ordered by MD. mattson 17:42 Discharged to home via wheelchair, with family, iw 17:42 Condition: good 17:42 Discharge instructions given to patient, family, Instructed on discharge instructions, follow up and referral plans. Demonstrated understanding of instructions, follow-up care, 17:45 Patient left the ED. iw Signatures: Dispatcher [employer] Iqra Antony RN RN iw Ruth East RN RN ll1 Kalli Bradshaw, PA-C PA-C sb4 Verna Jhaveri Rommel RN RN rg5 MAGGIE GIBSON RN RN dd2
[2024-10-26 18:20] VITALS: TEMP 98.4; O2SAT 99
[2024-10-26 18:28] VITALS: BP 101/74
== END 2024-10-26 17:45 | disposition home or self-care (01) ==
LOC: ER 13:48
DX: R55 Syncope and collapse (principal); R53.1 Weakness; R11.2 Nausea with vomiting, unspecified; I10 Essential (primary) hypertension; F17.210 Nicotine dependence, cigarettes, uncomplicated
CPT/HCPCS: 93005; 85025; 80048; 83735; 80076; 84484 ×2; 83690; 83880; 71045; 96374; 99284; J3475; J7030 ×2